=== PATIENT | female | born 1945 | race Caucasian/White ===

== ENCOUNTER 2022-10-12 10:56 | Outpatient (RCR) | payer MEDICARE, OTHER, SELFPAY | END 2022-12-23 16:18 | disposition home or self-care (01) | LOC: PT 10:56 | PROVIDERS: PCP Family Medicine; Visit Provider Anesthesiology Pain Medicine | DX: S46.011D Strain of muscle(s) and tendon(s) of the rotator cuff of right shoulder, subsequent encounter (principal) | CPT/HCPCS: 97010; 97035; 97110; 97140; G0283 ==

== ENCOUNTER 2022-10-26 13:08 | Outpatient (OUT) | payer MEDICARE, OTHER, SELFPAY ==
--- NOTE | 2022-10-26 13:25 | PM.CN ---
Consult Note: HPI Data of Consult Patient: known to practice within the last 3 years Consult date: 10/26/22 Requesting Physician: LINDSAY SPICER NP Primary Care Provider: Tierra Newell MD Consult Narrative Narrative: Patient is here for f/u of neck and right shoulder . Shoulder pain is with ROM activities. She is doing PT with good results for her neck pain. No new sensorimotor or bowel or bladder issues. No adverse medication SE. Medication regimen assists patient in ability to complete ADLs. She had right shoulder injection in office 08/03 with good results. She would like to repeat the injection. cc:: CC: LINDSAY SPICER NP Review of Systems ROS Status of ROS 10 or more systems reviewed and unremarkable except as noted in history and below Musculoskeletal Reports: neck pain and joint pain Exam Constitutional Documenting provider has reviewed patient's vital signs: yes Common normals: no apparent distress, oriented x3, no limitations, healthy appearing, alert and well nourished General appearance: cooperative, comfortable and well developed Orientation/consciousness: Yes awake, Yes oriented to person, Yes oriented to place and Yes oriented to time HENMT Common normals: normocephalic, nasal mucous membranes and turbinates normal and moist oral mucous membranes Neck & C-Spine Common normals: full ROM, supple and no meningeal signs General: normal visual inspection and trachea midline Cervical spine: cervical ROM normal, pain with cervical ROM, cervical spine tenderness and paracervical muscle tenderness Other: negative jenae Respiratory Common normals: normal respiratory effort, no retractions and no use of accessory muscles Effort & inspection: able to speak in complete sentences and symmetric chest movement Extremity Common normals: normal to inspection and normal capillary refill Right upper extremity: shoulder joint (positive apley. Pain with arm raised behind head or back. no arm drift. ) Other: crepitus in shoulder with movement. Muscle strength 4/5 bilat UE with intact sensation Assessment and Plan Assessment and Plan (1) Cervical spondylosis: (2) Shoulder arthritis: Plan schedule right shoulder injection in office f/u 3 months
== END 2022-10-26 13:09 ==
PROVIDERS: PCP Family Medicine; Visit Provider Nurse Practitioner
DX: M47.812 Spondylosis without myelopathy or radiculopathy, cervical region (principal); M19.019 Primary osteoarthritis, unspecified shoulder
CPT/HCPCS: G0463

== ENCOUNTER 2022-11-02 12:23 | Outpatient (OUT) | payer MEDICARE, OTHER, SELFPAY ==
--- NOTE | 2022-11-02 16:12 | CONS_ITS ---
PROCEDURE DATE: ??11/02/2022 PROCEDURE:? Right glenohumeral joint injection. PREOPERATIVE DIAGNOSIS:? Pain secondary to right shoulder joint pain, rotator cuff tear. POSTOPERATIVE DIAGNOSIS: Pain secondary to right shoulder joint pain, rotator cuff tear. SOLUTION USED FOR INJECTION:? 2 mL of 2% lidocaine, 2 mL of 0.25% Marcaine and 40 mg of Kenalog, total of 5 mL and 2 mL used for the injection. IMMEDIATE COMPLICATIONS:? None. PROCEDURE:? After informed consent was obtained from the patient, placed in the sitting position.? The skin overlying the area was prepped with alcohol.? A 25 gauge 1 ? inch needle inserted into the area of the right glenohumeral joint.? After encountering the same, we injected 2 mL of solution.? No indication of intravascular or intraneural needle tip placement or injection.? Tolerated the procedure well without complications.? She reports a dramatic reduction of pain symptoms post procedurally. MIGNON
== END 2022-11-02 12:24 | disposition home or self-care (01) ==
LOC: PM 12:23
PROVIDERS: PCP Family Medicine; Visit Provider Anesthesiology Pain Medicine
DX: M25.511 Pain in right shoulder (principal); M75.101 Unspecified rotator cuff tear or rupture of right shoulder, not specified as traumatic
CPT/HCPCS: 20610

== ENCOUNTER 2022-11-28 12:51 | Outpatient (OUT) | payer MEDICARE, OTHER, SELFPAY ==
--- NOTE | 2022-11-28 | CONS_ITS ---
PROCEDURE DATE: ??11/28/2022 TO:? Tierra Newell M.D. PROCEDURE:? Right suprascapular nerve injection. PREOPERATIVE DIAGNOSIS:? Right shoulder pain secondary to supraspinatus tear and strain injury with impingement syndrome.? POSTOPERATIVE DIAGNOSIS:? Right shoulder pain secondary to supraspinatus tear and strain injury with impingement syndrome.? SOLUTION USED FOR INJECTION:? 2 mL of 2% lidocaine, 2 mL of 0.25% Marcaine and 10 mg of Kenalog, a total of 5 mL, and 1 mL used for the injection. IMMEDIATE COMPLICATIONS:? None. PROCEDURE:? After informed consent was obtained from the patient, placed in the sitting position.? Skin overlying the area was prepped with alcohol.? A 25 gauge, 1 ? inch needle was inserted over the area right suprascapular nerve.? Needle tip was advanced until it was encountered, at which point we injected 1 mL of solution.? No indication of intravascular or intraneural needle tip placement or post-procedural pneumothorax.? This patient did report a marked reduction of pain symptoms, with improvement in range of motion of her right shoulder.? She would be an appropriate candidate for consideration for radiofrequency ablation of her right suprascapular nerve should her pain recur at any time in the near future.? MIGNON
== END 2022-11-28 12:52 | disposition home or self-care (01) ==
LOC: PM 12:52
PROVIDERS: PCP Family Medicine; Visit Provider Anesthesiology Pain Medicine
DX: M25.511 Pain in right shoulder (principal); M75.101 Unspecified rotator cuff tear or rupture of right shoulder, not specified as traumatic; S46.811A Strain of other muscles, fascia and tendons at shoulder and upper arm level, right arm, initial encounter; M75.41 Impingement syndrome of right shoulder
CPT/HCPCS: 20610

== ENCOUNTER 2022-12-25 14:17 | Outpatient (OUT) | payer MEDICARE, OTHER, SELFPAY ==
--- NOTE | 2022-12-25 15:40 | PM.CN ---
Consult Note: HPI Data of Consult Patient: known to practice within the last 3 years Consult date: 12/25/22 Requesting Physician: Drake Delatorre MD Primary Care Provider: Tierra Newell MD Consult Narrative Reason for consult: Right shoulder pain Narrative: this is a pleasant 77-year-old female who presents for assessment. She has persistence of pain throughout her right shoulder. She is tried various shoulder injections and nerve blocks in the past, with limited relief. She continues to engage in provider directed home exercises, which she has attended for over six weeks. She utilizes Percocet, which provides some relief. She otherwise denies adverse medication side effects or loss of bowel or bladder control. cc:: CC: Drake Delatorre MD Review of Systems ROS Status of ROS 10 or more systems reviewed and unremarkable except as noted in history and below Meds Home Medications and Allergies Home Medications Medication Instructions Recorded Confirmed Type OCUVITE DAILY 10/26/22 History albuterol sulfate 90 mcg/actuation inhalation Q6H 10/26/22 History aerosol inhaler amlodipine 10 mg tablet 10 mg DAILY 10/26/22 History baclofen 10 mg tablet 10 mg TID 10/26/22 History buspirone 10 mg tablet 10 mg BID 10/26/22 History cholecalciferol (vitamin D3) 50 50 mcg PO DAILY 10/26/22 10/26/22 History mcg (2,000 unit) capsule gabapentin 600 mg tablet 600 mg TID 10/26/22 History meloxicam 15 mg tablet 15 mg DAILY 10/26/22 History multivitamin 1 tab PO DAILY 10/26/22 10/26/22 History nortriptyline 25 mg capsule 25 mg .QHS 10/26/22 History omeprazole 40 mg capsule,delayed 40 mg DAILY 10/26/22 History release oxycodone-acetaminophen 5 mg-325 1 tab BID 10/26/22 History mg tablet (Endocet) tolterodine 2 mg tablet 4 mg PO DAILY 10/26/22 10/26/22 History Allergies Allergy/AdvReac Type Severity Reaction Status Date / Time No Known Drug Allergies Allergy Verified 10/26/22 13:49 Exam Constitutional Common normals: no apparent distress, oriented x3 and healthy appearing Respiratory Common normals: normal respiratory effort Effort & inspection: able to speak in complete sentences Extremity Common normals: normal to inspection Other: tenderness to palpation throughout the right shoulder. Pain is elicited with abduction and external rotation of the right shoulder. Mild crepitus appreciated. 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 She has persistence of pain throughout her right neck and shoulder region. She has failed to respond to conservative measures, as noted above. She has undergone various shoulder treatments, without significant relief. At this point in time, she would be an appropriate candidate for right suprascapular and axillary nerve blocks for diagnostic purposes. Depending on her response, she may benefit from radio frequency ablation of these nerves. She is in agreement with this plan. Medications were reviewed. I agreed to refill her Percocet. She will follow-up after the procedure is completed.
== END 2022-12-25 14:18 | disposition home or self-care (01) ==
LOC: PM 14:17
PROVIDERS: PCP Family Medicine; Visit Provider Anesthesiology
DX: M47.812 Spondylosis without myelopathy or radiculopathy, cervical region (principal); M19.019 Primary osteoarthritis, unspecified shoulder
CPT/HCPCS: G0463

== ENCOUNTER 2023-01-08 07:32 | Day surgery (SDC) | payer MEDICARE, OTHER, SELFPAY ==
[2023-01-08 08:04] VITALS: BP 141/93; PULSE 87; RESP 20; TEMP 36.3; O2SAT 97
[2023-01-08] MEDS: BUPIVACAINE HCL 0.25% PF 25 MG/10 ML VIAL INJ (09:10)
[2023-01-08 09:11] VITALS: BP 165/77; PULSE 77; RESP 20; O2SAT 97
[2023-01-08 09:12] VITALS: BP 154/72; PULSE 78; RESP 20; O2SAT 97
[2023-01-08] MEDS: TRIAMCINOLONE ACETONIDE 40 MG/ML VIAL INJ (09:12)
[2023-01-08] MEDS: LIDOCAINE HCL 2% PF 100 MG/5 ML VIAL INJ (09:12)
--- NOTE | 2023-01-08 09:14 | P.ON_ITS ---
Date of procedure: 01/08/23 Pre-op diagnosis: Shoulder osteoarthritis, right Post-op diagnosis: same as pre-op Procedure: Procedure: Right suprascapular and axillary nerve block Medications: Bupivacaine 0.25% 3cc, kenalog 40mg The patient was seen and examined in the preoperative holding area. Informed consent was obtained and placed on the chart.? The patient was brought to the medical procedure unit and placed in the prone position. A timeout was completed verifying correct patient, procedure site, positioning, plan, and special equipment.? Using aseptic technique, under direct fluoroscopic visualization, a 25-gauge 3-1/2 inch spinal needle was advanced to the superior portion of the right posterior osseous rim of the glenoid fossa, lateral and superior to the spinal glenoid notch.? 0.5 cc of the above solution was injected.? The needle was then redirected 3 mm infe riorly and another 0.5 cc of the above medication was injected.? This needle was then removed.? Using aseptic technique, under direct fluoroscopic visualization, another 25-gauge 3-1/2 inch spinal needle was advanced toward the most inferior and lateral border of the greater tubercle.? 0.5 cc of the above medication was administered.? The needle was then redirected 3 mm inferiorly.? 0.5 cc was administered in this region.? This needle was removed.? The same procedure, with the same steps, was then repeated on the opposite side.? ? The patient was taken to the postprocedural recovery area and monitored for an appropriate length of time before being found suitable for discharge in the accompaniment of a responsible adult. Anesthesia: Local Surgeon: Drake Delatorre Pathology: none sent Condition: stable Disposition: no change
== END 2023-01-08 09:19 | disposition home or self-care (01) ==
LOC: SURGOUT 07:33
PROVIDERS: PCP Family Medicine; Visit Provider Anesthesiology
DX: M19.011 Primary osteoarthritis, right shoulder (principal)
CPT/HCPCS: 64417; 64418; 77002

== ENCOUNTER 2023-01-24 12:34 | Outpatient (OUT) | payer MEDICARE, OTHER, SELFPAY ==
--- NOTE | 2023-01-24 12:46 | P.CN_ITS ---
Consult Note: HPI Data of Consult Patient: known to practice within the last 3 years Requesting Physician: Sheri Lozano NP Primary Care Provider: Tierra Newell MD Consult Narrative Reason for consult: procedure f/u Narrative: Jing Lewis a pleasant 77 year old female presents for evaluation of chronic neck pain and right shoulder pain. Recently underwent a right suprascapular and axillary nerve block with mild relief for 1-2 hours after procedure. Today rating pain 3-4/10. cc:: CC: Sheri Lozano NP Review of Systems ROS Status of ROS 10 or more systems reviewed and unremarkable except as noted in history and below Musculoskeletal Reports: neck pain, extremity pain and joint pain Meds Home Medications and Allergies Home Medications Medication Instructions Recorded Confirmed Type OCUVITE DAILY 10/26/22 History albuterol sulfate 90 mcg/actuation inhalation Q6H 10/26/22 History aerosol inhaler amlodipine 10 mg tablet 10 mg DAILY 10/26/22 History baclofen 10 mg tablet 10 mg TID 10/26/22 History buspirone 10 mg tablet 10 mg BID 10/26/22 History cholecalciferol (vitamin D3) 50 50 mcg PO DAILY 10/26/22 01/08/23 History mcg (2,000 unit) capsule gabapentin 600 mg tablet 600 mg TID 10/26/22 History meloxicam 15 mg tablet 15 mg DAILY 10/26/22 History multivitamin 1 tab PO DAILY 10/26/22 01/08/23 History nortriptyline 25 mg capsule 25 mg .QHS 10/26/22 History omeprazole 40 mg capsule,delayed 40 mg DAILY 10/26/22 History release oxycodone-acetaminophen 5 mg-325 1 tab BID 10/26/22 History mg tablet (Endocet) Allergies Allergy/AdvReac Type Severity Reaction Status Date / Time No Known Drug Allergies Allergy Verified 01/08/23 08:00 Exam Constitutional Documenting provider has reviewed patient's vital signs: yes Common normals: no apparent distress, oriented x3, healthy appearing, alert and well nourished General appearance: cooperative HENMT Common normals: normocephalic, hearing grossly normal bilaterally and moist oral mucous membranes Head and scalp: normocephalic Eye Common normals: PERRL Pupil: PERRL Neck & C-Spine General: normal visual inspection Cervical spine: cervical ROM abnormal, pain with cervical ROM and trapezius muscle tenderness Other: predominately central neck pain without radiculopathy, worse on right side Chest Common normals: inspection of chest normal Respiratory Common normals: normal respiratory effort, no retractions and no use of accessory muscles Extremity Right upper extremity: shoulder joint (pain and limited ROM) Neuro Common normals: oriented x3, CN's II-XII intact bilaterally, moves all extremities, no focal motor deficits, no sensory deficits noted and deep tendon reflexes 2+ bilaterally Sensorium/orientation: alert Motor exam: strength 5/5 throughout and no movement abnormalities noted Psych Common normals: mental status grossly normal, thought process normal, cooperative, affect normal, speech normal and activity/motor behavior normal Speech: normal speech Thought process: normal thought process Results Additional Findings Additional findings: I have checked an [place]AR[place] report on this patient today and there are no aberrancies noted in the prescribing history.?? A drug screen was completed and reviewed within the last year, and if there has not been a drug screen completed we ordered one today to monitor higher risk, state monitored pain medication use. As part of providing excellent, safe, comprehensive care, the following was completed at our patient's visit: 1. A medication reconciliation and review to ensure accurate knowledge of current/active medications, including asking our patients to inform us about any [id number] medications or herbal remedies/nutritional supplements/alternative remedies. 2. A review to specifically ensure our patients have had annual screening for: elevated body mass index (BMI), tobacco use, screening for depression, and screening for unhealthy alcohol use. When screening is concerning, patients are provided with education and the specific recommendation to discuss the concerning health issue and treatment options with their primary care provider. Assessment and Plan Assessment and Plan (1) Shoulder arthritis: (2) Cervical spondylosis: (3) Chronic prescription opiate use: Assessment and Plan: update UDS today, patient was unable to urinate we will obtain mouth swab for drug screen I feel these medications are improving the patient's quality of life and allow them to tolerate activities of daily living as well as participate in recreational activity.? The patient does not report intolerable side effects. The patient is NOT opioid naive and non-pharmacologic and non-opioid treatment has failed to significantly relieve the patient's pain and improve functionality. The patient has a diagnosis that is related to a somatic or visceral pain etiology. ? ?? I reviewed with the patient the potential risks and side effects with the use of? opioid medications including but not limited to respiratory depression,? sedation, and even . I verified the patient has access to naloxone should? these effects occur. I advised the patient to avoid the use of any other? sedation substances including alcohol, THC, and benzodiazepines while? taking opioid medications due to the risk of compounding side effects and? detrimental outcomes. I reviewed the TRAINER, pain treatment agreement, urine? drug screen, and opioid start talking forms. The patient was advised to let? their family know they had Naloxone in case they would need to administer? the medication.? ?? A drug screen was completed within the last year, and no aberrancies were noted regarding their use of controlled substances. The patient understands they are subject to the terms and conditions of the pain contract that they have signed. ? ?? I have checked an OARRS report on this patient today and there are no aberrancies noted in the prescribing history.? Plan SENIOR SUSTAINABILITY ADVISOR reviewed and signed update drug screen today continue HEP refill and continue current medications patient benefitting from current regimen without side effects proceed with [facility] c5-6 c6-7 MBB x2 under fluoroscopy if provides >80% functional improvement and pain relief will proceed with thermal RFA. risks and benefits of the procedure discussed.
== END 2023-01-24 12:35 | disposition home or self-care (01) ==
PROVIDERS: PCP Family Medicine; Visit Provider Nurse Practitioner
DX: M47.812 Spondylosis without myelopathy or radiculopathy, cervical region (principal); M19.019 Primary osteoarthritis, unspecified shoulder; Z79.891 Long term (current) use of opiate analgesic
CPT/HCPCS: G0463

== ENCOUNTER 2023-02-05 08:29 | Day surgery (SDC) | payer MEDICARE, OTHER, SELFPAY ==
[2023-02-05 09:06] VITALS: BP 117/84; PULSE 81; RESP 14; TEMP 36.6; O2SAT 96
[2023-02-05] MEDS: BUPIVACAINE HCL 0.25% PF 25 MG/10 ML VIAL INJ (10:03)
[2023-02-05] MEDS: DEXAMETHASONE SODIUM PHOSPHATE 10 MG/ML VIAL INJ (10:04)
[2023-02-05] MEDS: LIDOCAINE HCL 2% PF 100 MG/5 ML VIAL INJ (10:04)
--- NOTE | 2023-02-05 10:08 | W.PM.PROCNOT ---
Date of procedure: 02/05/23 Pre-op diagnosis: Cervical spondylosis Post-op diagnosis: same as pre-op Procedure: Procedure: Right C5-6, C6-7 medial branch block Medications: Bupivacaine 0.25% 4cc The patient was seen and examined in the preoperative holding area.? The informed consent was obtained and placed on the chart.? The patient was brought to the medical procedure unit and placed in the prone position.? A timeout was completed verifying correct patient, procedure site, positioning, plan, and special equipment.? Using aseptic technique, the needle is placed at right C5. Under direct fluoroscopic visualization, a Quincke tip needle was advanced to the midpoint of the waist of the articular pillar at the respective medial branch segment. The above-mentioned injectate was placed in a 1 mL aliquot proceeded by negative aspiration.? The needle was removed.? The procedure was completed at right C6, 7. Insertion site was covered.? Patient was taken to the postprocedural recovery area and monitored for an appropriate length of time before found suitable for discharge in the accompaniment of a responsible adult. Anesthesia: Local Surgeon: Drake Delatorre Pathology: none sent Condition: stable Disposition: no change
[2023-02-05 14:17] VITALS: BP 146/98; BP 151/77; PULSE 72; PULSE 76; RESP 18; O2SAT 96; O2SAT 97
== END 2023-02-05 10:09 | disposition home or self-care (01) ==
PROVIDERS: PCP Family Medicine; Visit Provider Anesthesiology
DX: M47.812 Spondylosis without myelopathy or radiculopathy, cervical region (principal)
CPT/HCPCS: 64490; 64491; J1100

== ENCOUNTER 2023-02-21 13:06 | Outpatient (OUT) | payer MEDICARE, OTHER, SELFPAY ==
--- NOTE | 2023-02-21 13:42 | PM.CN ---
Consult Note: HPI Data of Consult Patient: known to practice within the last 3 years Requesting Physician: Sheri Lozano NP Primary Care Provider: Tierra Newell MD Consult Narrative Reason for consult: f/u Narrative: Jing Lewis a pleasant 77 year old female presents for evaluation of chronic neck pain and right shoulder pain. Recently underwent a right c5-6 c6-7 MBB #1 with >80% pain relief and functional improvement. Neck pain unaffected by MBB. Patient would like to further discuss shoulder pain, she had an MRI completed which does not show a surgical need but she may benefit from talking with an operations staff specialist security. Pain today 6-11/20 in right shoulder and neck. cc:: CC: Sheri Lozano NP Review of Systems ROS Status of ROS 10 or more systems reviewed and unremarkable except as noted in history and below Musculoskeletal Reports: neck pain and joint pain (right shoulder) Meds Home Medications and Allergies Home Medications Medication Instructions Recorded Confirmed Type OCUVITE DAILY 10/26/22 History albuterol sulfate 90 mcg/actuation inhalation Q6H 10/26/22 History aerosol inhaler amlodipine 10 mg tablet 10 mg DAILY 10/26/22 History baclofen 10 mg tablet 10 mg TID 10/26/22 History buspirone 10 mg tablet 10 mg BID 10/26/22 History cholecalciferol (vitamin D3) 50 50 mcg PO DAILY 10/26/22 02/05/23 History mcg (2,000 unit) capsule gabapentin 600 mg tablet 600 mg TID 10/26/22 History multivitamin 1 tab PO DAILY 10/26/22 02/05/23 History nortriptyline 25 mg capsule 25 mg .QHS 10/26/22 History omeprazole 40 mg capsule,delayed 40 mg DAILY 10/26/22 History release oxycodone-acetaminophen 5 mg-325 1 tab BID 10/26/22 History mg tablet (Endocet) baclofen 10 mg tablet 10 mg PO TID #270 tabs 01/24/23 02/05/23 Rx gabapentin 600 mg tablet 600 mg PO TID #270 tabs 01/24/23 02/05/23 Rx meloxicam 15 mg tablet 15 mg PO DAILY #90 tabs 01/24/23 02/05/23 Rx nortriptyline 25 mg capsule 25 mg PO DAILY #90 caps 01/24/23 02/05/23 Rx naproxen sodium 220 mg capsule 440 mg PO BID PRN pain 02/05/23 02/05/23 History (Aleve) Allergies Allergy/AdvReac Type Severity Reaction Status Date / Time No Known Drug Allergies Allergy Verified 02/05/23 09:01 Exam Constitutional Documenting provider has reviewed patient's vital signs: yes Common normals: no apparent distress, oriented x3, healthy appearing, alert and well nourished General appearance: cooperative HENMT Common normals: normocephalic, hearing grossly normal bilaterally and moist oral mucous membranes Head and scalp: normocephalic Eye Common normals: PERRL Pupil: PERRL Neck & C-Spine Common normals: full ROM General: normal visual inspection Cervical spine: cervical ROM abnormal, pain with cervical ROM and trapezius muscle tenderness Other: predominately central neck pain without radiculopathy, worse on right side Chest Common normals: inspection of chest normal Respiratory Common normals: normal respiratory effort, no retractions and no use of accessory muscles Extremity Right upper extremity: shoulder joint (pain and limited ROM, tender to touch) Neuro Common normals: oriented x3, CN's II-XII intact bilaterally, moves all extremities, no focal motor deficits, no sensory deficits noted and deep tendon reflexes 2+ bilaterally Sensorium/orientation: alert Motor exam: strength 5/5 throughout and no movement abnormalities noted Psych Common normals: mental status grossly normal, thought process normal, cooperative, affect normal, speech normal and activity/motor behavior normal Speech: normal speech Thought process: normal thought process Results Additional Findings Additional findings: I have checked an OARRS report on this patient today and there are no aberrancies noted in the prescribing history.?? A drug screen was completed and reviewed within the last year, and if there has not been a drug screen completed we ordered one today to monitor higher risk, state monitored pain medication use. As part of providing excellent, safe, comprehensive care, the following was completed at our patient's visit: 1. A medication reconciliation and review to ensure accurate knowledge of current/active medications, including asking our patients to inform us about any [id number] medications or herbal remedies/nutritional supplements/alternative remedies. 2. A review to specifically ensure our patients have had annual screening for: elevated body mass index (BMI), tobacco use, screening for depression, and screening for unhealthy alcohol use. When screening is concerning, patients are provided with education and the specific recommendation to discuss the concerning health issue and treatment options with their primary care provider. Assessment and Plan Assessment and Plan (1) Shoulder arthritis: (2) Cervical spondylosis: (3) Chronic prescription opiate use: Assessment and Plan: I feel these medications are improving the patient's quality of life and allow them to tolerate activities of daily living as well as participate in recreational activity.? The patient does not report intolerable side effects. The patient is NOT opioid naive and non-pharmacologic and non-opioid treatment has failed to significantly relieve the patient's pain and improve functionality. The patient has a diagnosis that is related to a somatic or visceral pain etiology. ? ?? I reviewed with the patient the potential risks and side effects with the use of? opioid medications including but not limited to respiratory depression,? sedation, and even . I verified the patient has access to naloxone should? these effects occur. I advised the patient to avoid the use of any other? sedation substances including alcohol, THC, and benzodiazepines while? taking opioid medications due to the risk of compounding side effects and? detrimental outcomes. I reviewed the BENCH WORKER, pain treatment agreement, urine? drug screen, and opioid start talking forms. The patient was advised to let? their family know they had Naloxone in case they would need to administer? the medication.? ?? A drug screen was completed within the last year, and no aberrancies were noted regarding their use of controlled substances. The patient understands they are subject to the terms and conditions of the pain contract that they have signed. ? ?? I have checked an OARRS report on this patient today and there are no aberrancies noted in the prescribing history.? Plan continue HEP refill and continue current medications, to decrease meloxicam to 7.5 proceed with rig c5-6 c6-7 MBB #2 under fluoroscopy if provides >80% functional improvement and pain relief will proceed with thermal RFA. risks and benefits of the procedure discussed. orthopedic consult for right shoulder declining PT for right shoulder pain f/u after procedure
== END 2023-02-21 13:07 | disposition home or self-care (01) ==
PROVIDERS: PCP Family Medicine; Visit Provider Nurse Practitioner
DX: M47.812 Spondylosis without myelopathy or radiculopathy, cervical region (principal); Z79.899 Other long term (current) drug therapy; M19.011 Primary osteoarthritis, right shoulder
CPT/HCPCS: G0463

== ENCOUNTER 2023-03-05 08:10 | Day surgery (SDC) | payer MEDICARE, OTHER, SELFPAY ==
[2023-03-05 08:30] VITALS: BP 149/79; PULSE 84; RESP 16; TEMP 36.6; O2SAT 98
[2023-03-05 09:18] VITALS: BP 145/79; PULSE 77; RESP 16; O2SAT 97
[2023-03-05] MEDS: BUPIVACAINE HCL 0.25% PF 25 MG/10 ML VIAL 5 ML INJ (09:22)
[2023-03-05] MEDS: LIDOCAINE HCL 2% PF 100 MG/5 ML VIAL INJ (09:22)
[2023-03-05] MEDS: DEXAMETHASONE SOD PHOS 10 MG/ML VIAL INJ (09:22)
--- NOTE | 2023-03-05 09:23 | W.PM.PROCNOT ---
Date of procedure: 03/05/23 Pre-op diagnosis: Cervical spondylosis Post-op diagnosis: same as pre-op Procedure: Procedure: Right C5-6, C6-7 medial branch block Medications: Bupivacaine 0.25% 4cc The patient was seen and examined in the preoperative holding area.? The informed consent was obtained and placed on the chart.? The patient was brought to the medical procedure unit and placed in the prone position.? A timeout was completed verifying correct patient, procedure site, positioning, plan, and special equipment.? Using aseptic technique, the needle is placed at right C5. Under direct fluoroscopic visualization, a Quincke tip needle was advanced to the midpoint of the waist of the articular pillar at the respective medial branch segment. The above-mentioned injectate was placed in a 1 mL aliquot proceeded by negative aspiration.? The needle was removed.? The procedure was completed at right C6, 7. Insertion site was covered.? Patient was taken to the postprocedural recovery area and monitored for an appropriate length of time before found suitable for discharge in the accompaniment of a responsible adult. Anesthesia: Local Surgeon: Drake Delatorre Pathology: none sent Condition: stable Disposition: no change
[2023-03-05 09:25] VITALS: BP 145/75; PULSE 76; RESP 18; O2SAT 98
== END 2023-03-05 09:27 | disposition home or self-care (01) ==
PROVIDERS: PCP Family Medicine; Visit Provider Anesthesiology
DX: M47.812 Spondylosis without myelopathy or radiculopathy, cervical region (principal)
CPT/HCPCS: 64490; 64491; J1100

== ENCOUNTER 2023-03-15 12:41 | Outpatient (OUT) | payer MEDICARE, OTHER, SELFPAY ==
--- NOTE | 2023-03-15 12:50 | P.CN_ITS ---
Consult Note: HPI Data of Consult Patient: known to practice within the last 3 years Requesting Physician: Sheri Lozano NP Primary Care Provider: Tierra Newell MD Consult Narrative Reason for consult: f/u Narrative: Jing Lewis a pleasant 78 year old female presents for evaluation and management of chronic neck pain. Patient recently underwent Right C5-6, C6-7 medial branch block with 80% pain relief and functional improvement immediately following and hours after the procedure. Today rating pain 6/10 pain in right arm, shoulder, neck. Patient has not followed up with orthopedics since last visit. cc:: CC: Sheri Lozano NP Review of Systems ROS Status of ROS 10 or more systems reviewed and unremarkable except as noted in history and below Musculoskeletal Reports: neck pain and joint pain (right shoulder) PFSH PFSH Medical History HTN (hypertension) ?I10 - Essential (primary) hypertension (ICD-10) Surgical History History of back surgery ?Z98.890 - Other specified postprocedural states (ICD-10) History of hysterectomy ?Z90.710 - Acquired absence of both cervix and uterus (ICD-10) History of lumpectomy of left breast ?Z98.890 - Other specified postprocedural states (ICD-10) Meds Home Medications and Allergies Home Medications Medication Instructions Recorded Confirmed Type OCUVITE DAILY 10/26/22 History albuterol sulfate 90 mcg/actuation inhalation Q6H 10/26/22 History aerosol inhaler amlodipine 10 mg tablet 10 mg DAILY 10/26/22 History baclofen 10 mg tablet 10 mg TID 10/26/22 History buspirone 10 mg tablet 10 mg BID 10/26/22 History cholecalciferol (vitamin D3) 50 50 mcg PO DAILY 10/26/22 03/05/23 History mcg (2,000 unit) capsule gabapentin 600 mg tablet 600 mg TID 10/26/22 History multivitamin 1 tab PO DAILY 10/26/22 03/05/23 History nortriptyline 25 mg capsule 25 mg .QHS 10/26/22 History omeprazole 40 mg capsule,delayed 40 mg DAILY 10/26/22 History release oxycodone-acetaminophen 5 mg-325 1 tab BID 10/26/22 History mg tablet (Endocet) baclofen 10 mg tablet 10 mg PO TID #270 tabs 01/24/23 02/05/23 Rx gabapentin 600 mg tablet 600 mg PO TID #270 tabs 01/24/23 03/05/23 Rx meloxicam 15 mg tablet 15 mg PO DAILY #90 tabs 01/24/23 03/05/23 Rx nortriptyline 25 mg capsule 25 mg PO DAILY #90 caps 01/24/23 02/05/23 Rx naproxen sodium 220 mg capsule 440 mg PO BID PRN pain 02/05/23 03/05/23 History (Aleve) oxycodone-acetaminophen 5 mg-325 1 tab PO BID PRN pain #60 tabs 02/21/23 Rx mg tablet (Percocet) Allergies Allergy/AdvReac Type Severity Reaction Status Date / Time No Known Drug Allergies Allergy Verified 03/05/23 08:37 Exam Constitutional Documenting provider has reviewed patient's vital signs: yes Common normals: no apparent distress, oriented x3, healthy appearing, alert and well nourished General appearance: cooperative HENRI Common normals: normocephalic, hearing grossly normal bilaterally and moist oral mucous membranes Head and scalp: normocephalic Eye Common normals: PERRL Pupil: PERRL Neck & C-Spine Common normals: full ROM General: normal visual inspection Cervical spine: cervical ROM abnormal, pain with cervical ROM and trapezius muscle tenderness Other: predominately central neck pain without radiculopathy, worse on right side Chest Common normals: inspection of chest normal Respiratory Common normals: normal respiratory effort, no retractions and no use of accessory muscles Extremity Right upper extremity: shoulder joint (pain and limited ROM, tender to touch) Neuro Common normals: oriented x3, CN's II-XII intact bilaterally, moves all ex tremities, no focal motor deficits, no sensory deficits noted and deep tendon reflexes 2+ bilaterally Sensorium/orientation: alert Motor exam: strength 5/5 throughout and no movement abnormalities noted Psych Common normals: mental status grossly normal, thought process normal, cooperative, affect normal, speech normal and activity/motor behavior normal Speech: normal speech Thought process: normal thought process Results Additional Findings Additional findings: I have checked an [place] report on this patient today and there are no aberrancies noted in the prescribing history.?? A drug screen was completed and reviewed within the last year, and if there has not been a drug screen completed we ordered one today to monitor higher risk, state monitored pain medication use. As part of providing excellent, safe, comprehensive care, the following was completed at our patient's visit: 1. A medication reconciliation and review to ensure accurate knowledge of cu rrent/active medications, including asking our patients to inform us about any [id number] medications or herbal remedies/nutritional supplements/alternative remedies. 2. A review to specifically ensure our patients have had annual screening for: elevated body mass index (BMI), tobacco use, screening for depression, and screening for unhealthy alcohol use. When screening is concerning, patients are provided with education and the specific recommendation to discuss the concerning health issue and treatment options with their primary care provider. Assessment and Plan Assessment and Plan (1) Shoulder arthritis: (2) Cervical spondylosis: (3) Chronic prescription opiate use: Assessment and Plan: I feel these medications are improving the patient's quality of life and allow them to tolerate activities of daily living as well as participate in recreational activity.? The patient does not report intolerable side effects. The patient is NOT opioid naive and non-pharmacologic and non-opioid treatment has failed to significantly relieve the patient's pain and improve functionality. The patient has a diagnosis that is related to a somatic or visceral pain etiology. ? ?? I reviewed with the patient the potential risks and side effects with the use of? opioid medications including but not limited to respiratory depression,? sedation, and even . I verified the patient has access to naloxone should? these effects occur. I advised the patient to avoid the use of any other? sedation substances including alcohol, THC, and benzodiazepines while? taking opioid medications due to the risk of compounding side effects and? detrimental outcomes. I reviewed the [employer], pain treatment agreement, urine? drug screen, and opioid start talking forms. The patient was advised to let? their family know they had Naloxone in case they would need to administer? the medication.? ?? A drug screen was completed within the last year, and no aberrancies were noted regarding their use of controlled substances. The patient understands they are subject to the terms and conditions of the pain contract that they have signed. ? ?? I have checked an [place]ARRS report on this patient today and there are no aberrancies noted in the prescribing history.? Plan continue HEP refill and continue current medications proceed with right c5-6 c6-7 thermal RFA under fluoroscopy risks and benefits of the procedure discussed. 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 orthopedic consult for right shoulder previously placed declining PT for right shoulder pain f/u 1 month after procedure
== END 2023-03-15 12:42 | disposition home or self-care (01) ==
LOC: PM 12:43
PROVIDERS: PCP Family Medicine; Visit Provider Nurse Practitioner
DX: M47.812 Spondylosis without myelopathy or radiculopathy, cervical region (principal); Z79.899 Other long term (current) drug therapy; M19.019 Primary osteoarthritis, unspecified shoulder
CPT/HCPCS: G0463

== ENCOUNTER 2023-03-21 10:09 | Observation (INO) | payer MEDICARE, OTHER, SELFPAY ==
[2023-03-21 10:10] VITALS: BP 113/70; PULSE 114; RESP 18; TEMP 36.8; O2SAT 92; BMI 44.3
[2023-03-21 10:23] VITALS: O2SAT 94
--- NOTE | 2023-03-21 10:24 | ECG_ITS ---
The [facility] Test Date: 2023-03-21 Pat Name: AARON JJ Department: Room: - Gender: Female Quality Rn: : 1945 Requested By: JEREMIAH REED Order Number: [id number] Reading MD: KAISER SCHERER Measurements Intervals Drift Rate: 112 P: 40 ME: 154 QRS: 20 QRSD: 66 T: 51 QT: 308 QTc: 374 Interpretive Statements 1120 Sinus tachycardia [address] elevation 8102 Low QRS voltage in chest leads 9140 abnormal rhythm ECG No previous ECG available for comparison Electronically Signed On 03-23-2023 6:19:15 EST by KAISER SCHERER
--- NOTE | 2023-03-21 10:24 | CT_ITS ---
The [address] [address] Patient Name: AARON JJ MRN: [id number] date: 1945 Sex: F Assigned Patient Location: ER Current Patient Location: ER Accession/Order Number: [id number] Exam Date: 03/21/2023 11:04 Report Date: 03/21/2023 11:23 At the request of: CHANI HWANG Procedure: CT head/brain wo con EXAM: CT head/brain wo con HISTORY: weak, fall COMPARISON: None. TECHNIQUE: Contiguous transaxial images were obtained from skull base to vertex without administration of intravenous contrast. Dose reduction: mA and/or kV are were adjusted by automated exposure control software based upon patients height and weight. FINDINGS: There is no focal scalp soft tissue swelling or acute calvarial fracture. The visualized globes and orbits are grossly normal. There is paranasal sinus mucosal thickening without air-fluid levels. Bilateral mastoid air cells are clear. The ventricles and sulci are normal for age and symmetric bilaterally. 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 There is mild periventricular and deep subcortical white matter low-attenuation, consistent with small vessel ischemic disease. There is no intraparenchymal hemorrhage, extraaxial fluid collection, mass lesion, or acute large territory ischemia by noncontrast CT. CT/CT head/brain wo con IMPRESSION: 1. No acute intracranial hemorrhage or acute large territory ischemia by noncontrast CT 2. 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 If the patient has a focal neurologic deficit or there is clinical suspicion for acute cerebrovascular accident, brain MRI would be recommended for further evaluation. Electronically authenticated by: WILLY MCBRIDE Date: 03/21/2023 11:23
--- NOTE | 2023-03-21 10:24 | XR_ITS ---
The [address] [address] Patient Name: AARON JJ MRN: [id number] date: 1945 Sex: F Assigned Patient Location: ER Current Patient Location: ED.MAIN Accession/Order Number: [id number] Exam Date: 03/21/2023 11:04 Report Date: 03/21/2023 11:20 At the request of: CHANI HWANG Procedure: XR chest 1V EXAM: CHEST 1 VIEW HISTORY: weak TECHNIQUE: Chest, one view. COMPARISON: Chest radiograph 11/22/[address] 06/12/2022 FINDINGS: Lungs are hyperinflated with background of mild emphysema. There is bilateral lower lobe atelectasis. No acute consolidation, effusion, or pneumothorax. Borderline cardiomegaly. Pulmonary vasculature within normal limits. XR/XR chest 1V IMPRESSION: 1.. Chronic obstructive pulmonary disease with bibasilar atelectasis. No acute consolidation. Recommend followup imaging if symptoms worsen or persist. Electronically authenticated by: KACI WALSH Date: 03/21/2023 11:20
[2023-03-21 10:47] LABS: Basophils Absolute Auto 0.1 10^3/uL (0.0-0.1); Basophils Percent Auto 0.5 % (0.2-2.0); Eosinophils Percent Auto 0.1 % (0.9-7.0); Hematocrit 49.1 % (36.0-48.0); Hemoglobin 15.2 g/dL (12.0-16.0); Immature Granulocytes Abs Auto 0.04 10^3/uL (0.00-0.03); Immature Granulocytes Pct Auto 0.3 % (0.0-0.5); Lymphocytes Absolute Auto 0.4 10^3/uL (1.2-3.8); Lymphocytes Percent Auto 2.8 % (20.5-60.0); Mean Corpuscular Hemoglobin 29.9 pg (26.7-34.0); Mean Corpuscular Volume 96.7 fL (81.0-99.0); Monocytes Absolute Auto 0.9 10^3/uL (0.3-0.8); Monocytes Percent Auto 6.4 % (1.7-12.0); Neutrophils Absolute Auto 12.5 10^3/uL (1.4-6.5); Neutrophils Percent Auto 89.9 % (43.0-75.0); Platelet Count 245 10^3/uL (150-450); Red Blood Count 5.08 10^6/uL (4.20-5.40); Red Cell Distribution Width 14.6 % (11.0-15.0); White Blood Count 13.9 10^3/uL (4.0-11.0)
[2023-03-21 10:53] LABS: Anion Gap 12.5; BUN Creatinine Ratio 14.5; Calcium 9.4 mg/dL (8.5-10.1); Carbon Dioxide 24.4 mmol/L (21.0-32.0); Chloride 107 mmol/L (98-107); Estimated GFR (African America 40 (>=60); Estimated GFR (Non-African Ame 33 (>=60); Glucose 117 mg/dL (74-106); Potassium 3.9 mmol/L (3.5-5.1); Sodium 140 mmol/L (136-145)
[2023-03-21 11:11] LABS: Bilirubin Urine SMALL (NEGATIVE); Blood Urine NEGATIVE (NEGATIVE); Clarity Urine CLEAR (CLEAR); Color Urine DK. YELLOW (YELLOW); Glucose Urine UA NEGATIVE (NEGATIVE); Ketones Urine TRACE mg/dL (NEGATIVE); Leukocyte Esterase Urine NEGATIVE (NEGATIVE); Nitrite Urine NEGATIVE (NEGATIVE); Protein Urine TRACE mg/dL (NEG/TRACE); Specific Gravity Urine >=1.030 (1.005-1.025)
[2023-03-21 11:17] LABS: Bacteria Urine SMALL #/HPF (NONE SEEN); Mucus Urine TRACE (NONE SEEN); WBC Urine 0-2 #/HPF (NONE SEEN)
[2023-03-21 11:18] LABS: Cast Seen? SEEN #/LPF (NONE SEEN); Crystals Seen? None Seen #/HPF (None Seen); Hyaline Casts Urine FEW; Squamous Epithelial Cell Urine FEW #/LPF (NONE/RARE)
[2023-03-21 11:36] VITALS: BP 90/60; PULSE 106; RESP 20; O2SAT 93
[2023-03-21] MEDS: 0.9 % SODIUM CHLORIDE 1,000 ML 1000 ML IV (12:14)
[2023-03-21 12:15] VITALS: BP 117/86; PULSE 106; RESP 20; O2SAT 93
--- NOTE | 2023-03-21 12:47 | ED.GENADUL1 ---
HPI - General Adult General Chief complaint: Fall Stated complaint: GENERAL WEAKNESS Time Seen by Provider: 03/21/23 10:17 Source: patient and family Mode of arrival: ambulance Limitations: no limitations History of Present Illness HPI narrative: [age] female presents for generalized weakness. She couldn't walk today. She had gone to the floor without a fall early in the morning. Paramedics came out to her house and she refused transport. She stayed at home and then got herself to the toilet but then couldn't get up. Paramedics brought her in. She lives by herself but is accompanied by her daughter. She didn't injure herself in any fashion and doesn't have any pain, she just feels weak. No fever cough chest pain shortness of breath or abdominal pain. No nausea vomiting or diarrhea. Related Data Home Medications Medication Instructions Recorded Confirmed OCUVITE DAILY 10/26/22 albuterol sulfate 90 mcg/actuation inhalation Q6H 10/26/22 aerosol inhaler amlodipine 10 mg tablet 10 mg PO DAILY 10/26/22 03/21/23 baclofen 10 mg tablet 10 mg TID 10/26/22 buspirone 10 mg tablet 10 mg BID 10/26/22 cholecalciferol (vitamin D3) 50 50 mcg PO DAILY 10/26/22 03/21/23 mcg (2,000 unit) capsule gabapentin 600 mg tablet 600 mg PO TID 10/26/22 03/21/23 multivitamin 1 tab PO DAILY 10/26/22 03/21/23 nortriptyline 25 mg capsule 25 mg PO DAILY 10/26/22 03/21/23 omeprazole 40 mg capsule,delayed 40 mg PO DAILY 10/26/22 03/21/23 release oxycodone-acetaminophen 5 mg-325 1 tab PO BID PRN pain 10/26/22 03/21/23 mg tablet (Endocet) naproxen sodium 220 mg capsule 440 mg PO BID PRN pain 02/05/23 03/05/23 (Aleve) calcium 500 mg tablet mg 03/21/23 glucosamine HCl .ROUTE 03/21/23 melatonin PO 03/21/23 meloxicam 15 mg tablet 7.5 mg PO DAILY 03/21/23 03/21/23 solifenacin 10 mg tablet 10 mg PO DAILY 03/21/23 03/21/23 Previous Rx's Medication Instructions Recorded baclofen 10 mg tablet 10 mg PO TID #270 tabs 01/24/23 gabapentin 600 mg tablet 600 mg PO TID #270 tabs 01/24/23 nortriptyline 25 mg capsule 25 mg PO DAILY #90 caps 01/24/23 oxycodone-acetaminophen 5 mg-325 1 tab PO BID PRN pain #60 tabs 02/21/23 mg tablet (Percocet) Allergies Allergy/AdvReac Type Severity Reaction Status Date / Time No Known Drug Allergies Allergy Verified 03/21/23 10:15 Review of Systems ROS Narrative A ten point review of systems is negative except as noted above. PFSH PFSH Medical History HTN (hypertension) ?I10 - Essential (primary) hypertension (ICD-10) Surgical History History of back surgery ?Z98.890 - Other specified postprocedural states (ICD-10) History of hysterectomy ?Z90.710 - Acquired absence of both cervix and uterus (ICD-10) History of lumpectomy of left breast ?Z98.890 - Other specified postprocedural states (ICD-10) Exam Narrative Exam Narrative: Nurses note and vital signs reviewed and patient is not hypoxic. General: The patient appears in no apparent distress. Patient is resting comfortably on cart. Skin: Warm, dry, no pallor noted. There is no rash noted. Head: Normocephalic, atraumatic Eye: Normal conjunctiva, no drainage Ears, Nose, Mouth, and Throat: oral mucosa is slightly dry. Nares patent. Cardiovascular: Regular Rate and Rhythm Respiratory: Patient is in no distress, no accessory muscle use, lungs are clear to auscultation, no wheezing, rales or rhonchi Back: non-tender GI: soft, obese, and nontender Musculoskeletal: The patient has no evidence of calf tenderness, no pitting edema, symmetrical pulses noted bilaterally Neurological: A&O x4, normal speech; she is able to lift each leg off of the bed individually. Psychiatric: Cooperative Constitutional Vital Signs, click to edit/add: Last Vital Signs Temp 98.3 F 03/21/23 10:10 Pulse 106 H 03/21/23 12:15 Resp 20 03/21/23 12:15 BP 117/86 03/21/23 12:15 Pulse Ox 93 L 03/21/23 12:15 O2 Del Method Room Air 03/21/23 10:23 Course Vital Signs Vital signs: Vital Signs Temperature 98.3 F 03/21/23 10:10 Pulse Rate 114 H 03/21/23 10:10 Respiratory Rate 18 03/21/23 10:10 Blood Pressure 113/70 03/21/23 10:10 Pulse Oximetry 92 L 03/21/23 10:10 Oxygen Delivery Method Room Air 03/21/23 10:10 Temperature 98.3 F 03/21/23 10:10 Pulse Rate 106 H 03/21/23 12:15 Respiratory Rate 20 03/21/23 12:15 Blood Pressure 117/86 03/21/23 12:15 Pulse Oximetry 93 L 03/21/23 12:15 Oxygen Delivery Method Room Air 03/21/23 10:23 Medical Decision Making MDM Narrative Medical decision making narrative: the patient has generalized weakness without apparent cause. Creatinine is slightly elevated but we don't have anything to which we can compare it. She was given IV fluids. No evidence of urinary tract infection or pneumonia. WBC mildly elevated at thirteen thousand. troponin is pending at the time of this dictation. She was given IV fluids and is being admitted. Treatment diagnosis and disposition were discussed with the patient and her family. Differential Diagnosis Differential Diagnosis: urinary tract infection, pneumonia, medication side effect Lab Data Lab results reviewed: Yes I reviewed the patient's lab results Labs: Lab Results 03/21/23 03/21/23 Range/Units 10:35 10:51 WBC 13.9 H (4.0-11.0) 10^3/uL RBC 5.08 (4.20-5.40) 10^6/uL Hgb 15.2 (12.0-16.0) g/dL Hct 49.1 H (36.0-48.0) % MCV 96.7 (81.0-99.0) fL MCH 29.9 (26.7-34.0) pg MCHC 31.0 (29.9-35.2) g/dL RDW 14.6 (11.0-15.0) % Plt Count 245 (150-450) 10^3/uL MPV 11.0 (9.5-13.5) fL Neut % (Auto) 89.9 H (43.0-75.0) % Lymph % (Auto) 2.8 L (20.5-60.0) % [place] % (Auto) 6.4 (1.7-12.0) % Eos % (Auto) 0.1 L (0.9-7.0) % Baso % (Auto) 0.5 (0.2-2.0) % Neut # (Auto) 12.5 H (1.4-6.5) 10^3/uL Lymph # (Auto) 0.4 L (1.2-3.8) 10^3/uL [place] # (Auto) 0.9 H (0.3-0.8) 10^3/uL Eos # (Auto) 0.0 (0.0-0.7) 10^3/uL Baso # (Auto) 0.1 (0.0-0.1) 10^3/uL Abs Immat Gran (auto) 0.04 H (0.00-0.03) 10^3/uL Imm/Tot Granulo (auto) 0.3 (0.0-0.5) % Sodium 140 (136-145) mmol/L Potassium 3.9 (3.5-5.1) mmol/L Chloride 107 (98-107) mmol/L Carbon Dioxide 24.4 (21.0-32.0) mmol/L Anion Gap 12.5 BUN 22.0 H (7.0-18.0) mg/dL Creatinine 1.52 H (0.55-1.02) mg/dL Est GFR ( Amer) 40 L (>=60) Est GFR (Non-Af Amer) 33 L (>=60) BUN/Creatinine Ratio 14.5 Glucose 117 H (74-106) mg/dL Calcium 9.4 (8.5-10.1) mg/dL Urine Color Dk. yellow (YELLOW) Urine Clarity Clear (CLEAR) Urine pH 5.0 (5.0-9.0) Ur Specific [place] >=1.030 A (1.005-1.025) Urine Protein Trace (NEG/TRACE) mg/dL Urine Glucose (UA) Negative (NEGATIVE) mg/dL Urine Ketones Trace A (NEGATIVE) mg/dL Urine Occult Blood Negative (NEGATIVE) Urine Nitrite Negative (NEGATIVE) Urine Bilirubin Small A (NEGATIVE) Urine Urobilinogen 1.0 (0.2-1.0) EU/dL Ur Leukocyte Esterase Negative (NEGATIVE) Urine RBC 2-5 A (0-2) #/HPF Urine WBC 0-2 A (NONE SEEN) #/HPF Ur Squamous Epith Cells Few A (NONE/RARE) #/LPF Urine Crystals None seen (None Seen) #/HPF Urine Bacteria Small A (NONE SEEN) #/HPF Urine Casts Seen A (NONE SEEN) #/LPF Hyaline Casts Few Urine Mucus Trace A (NONE SEEN) Imaging Data chest x-ray and CT brain: Radiologist's impression: Procedure: XR chest 1V EXAM: CHEST 1 VIEW HISTORY: weak TECHNIQUE: Chest, one view. COMPARISON: Chest radiograph 11/22/[address] 06/12/2022 FINDINGS: Lungs are hyperinflated with background of mild emphysema. There is bilateral lower lobe atelectasis. No acute consolidation, effusion, or pneumothorax. Borderline cardiomegaly. Pulmonary vasculature within normal limits. IMPRESSION: 1.. Chronic obstructive pulmonary disease with bibasilar atelectasis. No acute consolidation. Recommend followup imaging if symptoms worsen or persist. Electronically authenticated by: KACI WALSH Date: 03/21/2023 11:20 Procedure: CT head/brain wo con EXAM: CT head/brain wo con HISTORY: weak, fall COMPARISON: None. TECHNIQUE: Contiguous transaxial images were obtained from skull base to vertex without administration of intravenous contrast. Dose reduction: mA and/or kV are were adjusted by automated exposure control software based upon patients height and weight. FINDINGS: There is no focal scalp soft tissue swelling or acute calvarial fracture. The visualized globes and orbits are grossly normal. There is paranasal sinus mucosal thickening without air-fluid levels. Bilateral mastoid air cells are clear. The ventricles and sulci are normal for age and symmetric bilaterally. 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 There is mild periventricular and deep subcortical white matter low-attenuation, consistent with small vessel ischemic disease. There is no intraparenchymal hemorrhage, extraaxial fluid collection, mass lesion, or acute large territory ischemia by noncontrast CT. IMPRESSION: 1. No acute intracranial hemorrhage or acute large territory ischemia by noncontrast CT 2. 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 If the patient has a focal neurologic deficit or there is clinical suspicion for acute cerebrovascular accident, brain MRI would be recommended for further evaluation. Electronically authenticated by: WILLY MCBRIDE Date: 03/21/2023 11:23 ECG Data Attestation: I personally reviewed and interpreted this ECG as follows: (EKG on my interpretation shows sinus tachycardia ) Discharge Plan Discharge Chief Complaint: Fall Clinical Impression: Generalized weakness Patient Disposition: Admitted as Observation Time of Disposition Decision: 12:53 Condition: Good Prescriptions / Home Meds: No Action nortriptyline 25 mg capsule 25 mg PO DAILY Qty: 90 0RF gabapentin 600 mg tablet 600 mg PO TID Qty: 270 0RF baclofen 10 mg tablet 10 mg PO TID Qty: 270 0RF oxycodone-acetaminophen [Percocet] 5-325 mg tablet 1 tab PO BID PRN (Reason: pain) Qty: 60 0RF albuterol sulfate 90 mcg/actuation HFA aerosol inhaler INHALATION Q6H cholecalciferol (vitamin D3) 50 mcg (2,000 unit) capsule 50 mcg PO DAILY baclofen 10 mg tablet 10 mg TID amlodipine 10 mg tablet 10 mg PO DAILY gabapentin 600 mg tablet 600 mg PO TID nortriptyline 25 mg capsule 25 mg PO DAILY omeprazole 40 mg capsule,delayed release(DR/EC) 40 mg PO DAILY oxycodone-acetaminophen [Endocet] 5-325 mg tablet 1 tab PO BID PRN (Reason: pain) buspirone 10 mg tablet 10 mg BID multivitamin Tablet 1 tab PO DAILY OCUVITE DAILY naproxen sodium [Aleve] 220 mg capsule 440 mg PO BID PRN (Reason: pain) solifenacin 10 mg tablet 10 mg PO DAILY calcium 500 mg tablet melatonin PO glucosamine HCl .ROUTE meloxicam 15 mg tablet 7.5 mg PO DAILY Referrals: Tierra Newell MD [Primary Care Provider] - 1 week
[2023-03-21 13:12] LABS: Troponin I High Sensitivity 13.8 pg/mL (4.0-51.3)
[2023-03-21 14:01] VITALS: BP 124/77; PULSE 100; RESP 20; TEMP 37.1; O2SAT 93; BMI 37.5
--- NOTE | 2023-03-21 15:01 | P.HP_ITS ---
Patient was not personally seen and examined. I reviewed her chart, discussed her case with Antionette. Agree with her findings and treatment plan Patient presents with generalized weakness. No underlying etiology on initial guan other than mild dehydration. On IVF. PT/OT eval. Monitor and re assess as clinically indicated. H&P: HPI History of Present Illness Chief complaint: GENERAL WEAKNESS/FREQUENT FALLS Narrative: Date/time of exam: 03/21/23 8700 This is a 78-year-old female patient with a past medical history as outlined below Including HTN, chronic pain syndrome with MSK source, COPD, and GERD; who presented to the ED after suffering 2 falls earlier today. Apparently the patient normally is able to ambulate around her house independently but today was so weak she fell twice requiring EMS call out for lift assist. The first time the patient refused to go to the ED but after the second call out she agreed to transport to the ED for further evaluation. The patient denies chest pain, shortness of breath, dizziness, palpitations, cough, fever, peripheral edema, abdominal pain, N/V/D. Work-up in the ED was essentially benign other than evidence of dehydration with mildly worsened renal function from baseline, but no acute disease process was identified. A CXR was negative for acute abnormality, as was a CT of the brain. As the pt was deemed unsafe to return home where she lives alone as she remains very weak. She is being admitted in observation to the hospitalist service At the time of my exam the pt is resting comfortably in bed chatting with her nurse. She is A&O x 3 without evidence of acute confusion/delirium. She only c/o of generalized weakness and being very dry. Her physcial exam is unremarkable other than dry mucous membranes. Review of Systems ROS Status of ROS 10 or more systems reviewed and unremarkable except as noted in history and below [facility] Medical History (Updated 03/21/23 @ 15:09 by Antionette Barros NP) Anxiety ?F41.9 - Anxiety disorder, unspecified (ICD-10) Cervical spondylosis ?M47.812 - Spondylosis without myelopathy or radiculopathy, cervical region (ICD-10) Chronic pain ?G89.29 - Other chronic pain (ICD-10) Chronic prescription opiate use ?Z79.891 - [facility] (current) use of opiate analgesic (ICD-10) COPD (chronic obstructive pulmonary disease) ?J44.9 - Chronic obstructive pulmonary disease, unspecified (ICD-10) GERD (gastroesophageal reflux disease) ?K21.9 - Gastro-esophageal reflux disease without esophagitis (ICD-10) HTN (hypertension) ?I10 - Essential (primary) hypertension (ICD-10) Shoulder arthritis ?M19.019 - Primary osteoarthritis, unspecified shoulder (ICD-10) Surgical History History of back surgery ?Z98.890 - Other specified postprocedural states (ICD-10) History of hysterectomy ?Z90.710 - Acquired absence of both cervix and uterus (ICD-10) History of lumpectomy of left breast ?Z98.890 - Other specified postprocedural states (ICD-10) Social History Gender Identity: female Meds Home Medications and Allergies Home Medications Medication Instructions Recorded Confirmed Type OCUVITE 1 tab PO DAILY 10/26/22 03/21/23 History albuterol sulfate 90 mcg/actuation 2 puff inhalation Q6H 10/26/22 03/21/23 History aerosol inhaler amlodipine 10 mg tablet 10 mg PO DAILY 10/26/22 03/21/23 History baclofen 10 mg tablet 10 mg PO TID 10/26/22 03/21/23 History buspirone 10 mg tablet 10 mg PO BID 10/26/22 03/21/23 History cholecalciferol (vitamin D3) 50 50 mcg PO DAILY 10/26/22 03/21/23 History mcg (2,000 unit) capsule gabapentin 600 mg tablet 600 mg PO TID 10/26/22 03/21/23 History multivitamin 1 tab PO DAILY 10/26/22 03/21/23 History nortriptyline 25 mg capsule 25 mg PO DAILY 10/26/22 03/21/23 History omeprazole 40 mg capsule,delayed 40 mg PO DAILY 10/26/22 03/21/23 History release oxycodone-acetaminophen 5 mg-325 1 tab PO BID PRN pain 10/26/22 03/21/23 History mg tablet (Endocet) baclofen 10 mg tablet 10 mg PO TID #270 tabs 01/24/23 03/21/23 Rx gabapentin 600 mg tablet 600 mg PO TID #270 tabs 01/24/23 03/21/23 Rx nortriptyline 25 mg capsule 25 mg PO DAILY #90 caps 01/24/23 03/21/23 Rx naproxen sodium 220 mg capsule 440 mg PO BID PRN pain 02/05/23 03/21/23 History (Aleve) oxycodone-acetaminophen 5 mg-325 1 tab PO BID PRN pain #60 tabs 02/21/23 03/21/23 Rx mg tablet (Percocet) calcium 500 mg tablet 500 mg PO QDAY 03/21/23 03/21/23 History calcium carbonate 600 mg calcium 600 mg PO DAILY 03/21/23 03/21/23 History (1,500 mg) tablet (Calcium) glucosamine HCl 1 tab PO .QD 03/21/23 03/21/23 History melatonin 1 tab PO .QHS PRN sleep 03/21/23 03/21/23 History meloxicam 15 mg tablet 7.5 mg PO DAILY 03/21/23 03/21/23 History solifenacin 10 mg tablet 10 mg PO DAILY 03/21/23 03/21/23 History Allergies Allergy/AdvReac Type Severity Reaction Status Date / Time No Known Drug Allergies Allergy Verified 03/21/23 10:15 Exam Constitutional Vital Signs, click to edit/add: Last Vital Signs Temp 98.7 F 03/21/23 14:01 Pulse 100 H 03/21/23 14:01 Resp 20 03/21/23 14:01 BP 124/77 03/21/23 14:01 Pulse Ox 93 L 03/21/23 14:01 O2 Del Method Room Air 03/21/23 14:01 Common normals: no apparent distress, oriented x3 and alert General appearance: cooperative Nutritional appearance: overweight Orientation/consciousness: Yes awake HENKS Common normals: normocephalic, head/scalp atraumatic, hearing grossly normal bilaterally and external nose normal; oral mucous membranes not moist Eye Common normals: PERRL, EOMs intact bilaterally, conjunctivae normal and no scleral icterus Alignment: alignment normal Pupil: PERRL Chest Common normals: inspection of chest normal Chest: symmetrical chest wall rise Respiratory Common normals: normal respiratory effort, no retractions, no use of accessory muscles and clear to auscultation bilaterally Effort & inspection: able to speak in complete sentences Auscultation: diminished lung sounds (BLL) Cardio Common normals: no JVD, regular rate, regular rhythm, S1 normal heart sound, S2 normal heart sound, no gallops, no clicks, no murmurs, no rub and peripheral pulses 2+ throughout GI Common normals: Normal to inspection, nondistended, normoactive bowel sounds present, soft to palpation, non-tender, no hepatosplenomegaly, no masses and no bruits Bladder/kidney exam: bladder normal to palpation Extremity Common normals: normal capillary refill and no pedal edema General: normal exam except as noted; no clubbing and no cyanosis Neuro [place] Coma Scale: GCS not evaluated Common normals: oriented x3, CN's II-XII intact bilaterally, moves all extremities, no focal motor deficits and no sensory deficits noted Psych Common normals: mental status grossly normal, thought process normal, affect normal and activity/motor behavior normal Results Labs Labs: Short CBC 03/21/23 Range/Units 10:35 WBC 13.9 H (4.0-11.0) 10^3/uL Hgb 15.2 (12.0-16.0) g/dL Hct 49.1 H (36.0-48.0) % Plt Count 245 (150-450) 10^3/uL BMP 03/21/23 10:35 Sodium 140 Potassium 3.9 Chloride 107 Carbon Dioxide 24.4 BUN 22.0 H Creatinine 1.52 H Glucose 117 H Calcium 9.4 Urine 03/21/23 Range/Units 10:51 Urine Color Dk. yellow (YELLOW) Urine Clarity Clear (CLEAR) Urine pH 5.0 (5.0-9.0) Ur Specific [place] >=1.030 A (1.005-1.025) Urine Protein Trace (NEG/TRACE) mg/dL Urine Glucose (UA) Negative (NEGATIVE) mg/dL Pulse Oximetry Attestation: I have reviewed the pertinent pulse oximetry results. Assessment and Plan Assessment and Plan (1) Acute kidney injury superimposed on CKD: Assessment and Plan: ACUTE * Adm observation * Risk for SOLO w/ 50% increase in Cr from baseline (RIFLE) * NS IVF bolus given in the ED * LR maintenance IVF at 125/hr * Monitor fluid balance * CMP in AM (2) Dehydration: Assessment and Plan: ACUTE * Clinically dehydrated on exam and pt c/o of being very dry * IVF as above * Encourage PO intake * CMP in AM (3) Generalized weakness: Assessment and Plan: ACUTE * Unclear etiology * No acute infectious process identified on CXR, labs or UA but leukocytosis noted * Check Mag and TSH * Unlikely serotonin syndrome as symptoms are not consistent with this but continue to monitor. Pt on Nortriptyline and Buspar x 1 yr * Neuro checks q4h - low clinical suspicion of acute neurologic event - consider MRI brain pending clinical course * PT OT consults * Ambulate as tolerated w/ at least SBA at all times (4) Frequent falls: Assessment and Plan: ACUTE * High fall risk - bed alarms at all times * PT/OT as above * Consider HH at discharge for further close monitoring and PT strengthening (5) Anxiety: Assessment and Plan: CHRONIC * Continue home buspar for now - low threshold to hold if pt develops symptoms more concerning for serotonin syndrome (6) Chronic pain: Assessment and Plan: CHRONIC * Continue home gabapentin, baclofen, nortriptyline, Percocet PRN * Pt follows w/ pain clinic as outpatient (7) GERD (gastroesophageal reflux disease): Assessment and Plan: CHRONIC * Continue home PPI (8) HTN (hypertension): Assessment and Plan: CHRONIC * Continue home amlodipine
[2023-03-21] MEDS: ENOXAPARIN SODIUM 40 MG/0.4 ML SYRINGE SUBQ (15:51)
[2023-03-21] MEDS: LACTATED RINGER'S SOLUTION 1,000 ML 125 ML IV (15:51)
[2023-03-21 15:53] LABS: Thyroid Stimulating Hormone 1.023 uIU/mL (0.358-3.740)
[2023-03-21 16:02] LABS: Magnesium 2.1 mg/dL (1.8-2.4)
[2023-03-21 20:11] VITALS: BP 158/80; PULSE 101; RESP 20; TEMP 37.4; O2SAT 90
[2023-03-21] MEDS: OXYCODONE HCL/ACETAMINOPHEN 5MG/325MG 1 TAB PO (20:21)
[2023-03-21] MEDS: BUSPIRONE HCL 10 MG TABLET PO (20:21)
[2023-03-21] MEDS: GABAPENTIN 300 MG CAPSULE 600 MG PO (21:00)
[2023-03-21] MEDS: BACLOFEN 10 MG TABLET PO (21:00)
[2023-03-22] MEDS: LACTATED RINGER'S SOLUTION 1,000 ML 125 ML IV ×2 (00:40→08:48)
[2023-03-22 03:54] VITALS: BP 161/78; PULSE 95; RESP 20; TEMP 36.8; O2SAT 90
[2023-03-22] MEDS: BACLOFEN 10 MG TABLET PO ×2 (05:01→13:58)
[2023-03-22] MEDS: GABAPENTIN 300 MG CAPSULE 600 MG PO ×2 (05:01→13:59)
[2023-03-22 05:50] LABS: Basophils Absolute Auto 0.1 10^3/uL (0.0-0.1); Basophils Percent Auto 0.5 % (0.2-2.0); Eosinophils Absolute Auto 0.2 10^3/uL (0.0-0.7); Eosinophils Percent Auto 1.2 % (0.9-7.0); Hematocrit 39.4 % (36.0-48.0); Hemoglobin 12.4 g/dL (12.0-16.0); Immature Granulocytes Abs Auto 0.05 10^3/uL (0.00-0.03); Immature Granulocytes Pct Auto 0.3 % (0.0-0.5); Lymphocytes Absolute Auto 1.9 10^3/uL (1.2-3.8); Lymphocytes Percent Auto 12.2 % (20.5-60.0); Mean Corpuscular HGB Conc 31.5 g/dL (29.9-35.2); Mean Corpuscular Hemoglobin 29.7 pg (26.7-34.0); Mean Corpuscular Volume 94.5 fL (81.0-99.0); Mean Platelet Volume 11.5 fL (9.5-13.5); Monocytes Absolute Auto 0.8 10^3/uL (0.3-0.8); Monocytes Percent Auto 5.2 % (1.7-12.0); Neutrophils Absolute Auto 12.3 10^3/uL (1.4-6.5); Neutrophils Percent Auto 80.6 % (43.0-75.0); Platelet Count 205 10^3/uL (150-450); Red Blood Count 4.17 10^6/uL (4.20-5.40); Red Cell Distribution Width 14.8 % (11.0-15.0); White Blood Count 15.3 10^3/uL (4.0-11.0)
[2023-03-22 06:20] LABS: Alanine Aminotransferase 19 U/L (14-59); Albumin Globulin Ratio 0.8; Albumin Level 2.7 g/dL (3.4-5.0); Alkaline Phosphatase 74 U/L (46-116); Anion Gap 10.4; Aspartate Amino Transferase 25 U/L (15-37); BUN Creatinine Ratio 21.1; Bilirubin Total 0.7 mg/dL (0.2-1.0); Calcium 8.9 mg/dL (8.5-10.1); Carbon Dioxide 23.4 mmol/L (21.0-32.0); Chloride 108 mmol/L (98-107); Estimated GFR (African America 56 (>=60); Estimated GFR (Non-African Ame 46 (>=60); Globulin 3.3 g/dL; Glucose 96 mg/dL (74-106); Potassium 3.8 mmol/L (3.5-5.1); Sodium 138 mmol/L (136-145)
[2023-03-22] MEDS: ENOXAPARIN SODIUM 40 MG/0.4 ML SYRINGE SUBQ (08:33)
[2023-03-22] MEDS: BUSPIRONE HCL 10 MG TABLET PO (08:34)
[2023-03-22] MEDS: AMLODIPINE BESYLATE 5 MG TABLET 10 MG PO (08:34)
[2023-03-22] MEDS: OMEPRAZOLE 40 MG CAPSULE.DR PO (08:34)
[2023-03-22] MEDS: SOLIFENACIN SUCCINATE 10 MG TABLET PO (08:34)
[2023-03-22] MEDS: NORTRIPTYLINE HCL 25 MG CAPSULE PO (08:34)
--- NOTE | 2023-03-22 10:17 | CM.NOTE ---
Medicare Outpatient Observation notice discussed with pt, pt verbalizes understanding and signs paper. Original given to pt and copy placed on pt's chart.
--- NOTE | 2023-03-22 13:30 | P.DS_ITS ---
Seen and examined. Doing well. No complaints to offer. Reviewed her chart, case d/w Antionette. Agree with her treatment plan and findings. Exam: Laying in bed, NAD CTA b/l, No wheezing Normal S1, S2, no murmur Assessment and Plan Suspected UTI Dehydration SOLO Generalized weakness More or less at baseline today. Feels well today. PT/OT eval. Ambulated well with walker. Stable for d/c to home. DS: Providers Provider Date of admission: 03/21/23 12:53 Primary care physician: Tierra Newell MD Consults: 03/21/23 14:54 Physical Therapy Eval and Treat Routine Reason for consultation: Frequent falls/weakness Has provider been notified: No 03/21/23 14:55 Occupational Therapy Eval and Treat Routine Reason for consultation: Frequent falls/weakness Has provider been notified: No Discharging clinician: Antionette Barros DS: Diagnosis Discharge Diagnosis (1) Acute kidney injury superimposed on CKD: (2) Dehydration: (3) Generalized weakness: (4) Frequent falls: (5) Anxiety: (6) Chronic pain: (7) GERD (gastroesophageal reflux disease): (8) HTN (hypertension): (9) Leukocytosis: DS: Summary Hospital Course Hospital Course: The pt was admitted to observation with SOLO, dehydration, and generalized weakness. She also was noted to have leukocytosis without any infectious source being identified. She was treated with IVFs and her dehydration and SOLO resolved by the time of discharge. As her WBC continued to rise (without fever/chills, or infectious symptoms), a repeat UA was ordered and she was treated empirically with Macrobid for 3 days for suspected UTI pending culture results. She is being discharged home in stable condition with a referral to outpatient PT for further strengthening. She should follow-up with her PCP in 5 to 7 days. Time Spent with Patient Time attestation: Total time spent providing and/or coordinating discharge services: Time spent: greater than 30 minutes Specific discharge activities: Physical exam, discussion of discharge plan, questions answered. Exam Constitutional Vital Signs, click to edit/add: Last Vital Signs Temp 98.3 F 03/22/23 03:54 Pulse 95 H 03/22/23 03:54 Resp 20 03/22/23 03:54 BP 161/78 H 03/22/23 03:54 Pulse Ox 90 L 03/22/23 03:54 O2 Del Method Room Air 03/22/23 03:54 Common normals: no apparent distress, oriented x3 and alert General appearance: cooperative Orientation/consciousness: Yes awake HENMT Common normals: normocephalic and head/scalp atraumatic Eye Common normals: PERRL, EOMs intact bilaterally, conjunctivae normal and no scleral icterus Respiratory Common normals: normal respiratory effort, no use of accessory muscles and clear to auscultation bilaterally Effort & inspection: able to speak in complete sentences and symmetric chest movement Auscultation: wheezes (BLL faint EE, L>R) Cardio Common normals: no JVD, regular rate, regular rhythm, S1 normal heart sound, S2 normal heart sound and peripheral pulses 2+ throughout Heart sounds: murmur (HSM 2/6) GI Common normals: Normal to inspection, nondistended, normoactive bowel sounds present, soft to palpation and non-tender Bladder/kidney exam: bladder normal to palpation Extremity Common normals: normal to inspection, full ROM, normal capillary refill and no pedal edema General: no clubbing and no cyanosis Neuro Common normals: moves all extremities, no focal motor deficits and no sensory deficits noted Speech: speech normal Psych Common normals: mental status grossly normal and activity/motor behavior normal DS: Data Data Completed and Pending Labs on day of discharge: Labs from last 24 hours 03/22/23 03/21/23 04:51 10:35 WBC 15.3 H RBC 4.17 L Hgb 12.4 Hct 39.4 MCV 94.5 MCH 29.7 MCHC 31.5 RDW 14.8 Plt Count 205 MPV 11.5 Neut % (Auto) 80.6 H Lymph % (Auto) 12.2 L [place] % (Auto) 5.2 Eos % (Auto) 1.2 Baso % (Auto) 0.5 Neut # (Auto) 12.3 H Lymph # (Auto) 1.9 [place] # (Auto) 0.8 Eos # (Auto) 0.2 Baso # (Auto) 0.1 Abs Immat Gran (auto) 0.05 H Imm/Tot Granulo (auto) 0.3 Sodium 138 Potassium 3.8 Chloride 108 H Carbon Dioxide 23.4 Anion Gap 10.4 BUN 24.0 H Creatinine 1.14 H Est GFR ( Amer) 56 L Est GFR (Non-Af Amer) 46 L BUN/Creatinine Ratio 21.1 Glucose 96 Calcium 8.9 Magnesium 2.1 Total Bilirubin 0.7 AST 25 ALT 19 Alkaline Phosphatase 74 Total Protein 6.0 L Albumin 2.7 L Globulin 3.3 Albumin/Globulin Ratio 0.8 TSH 1.023 Discharge Plan Discharge Disposition: Home, Self-Care Condition: Good Discharge Medications: New nitrofurantoin monohyd/m-cryst [Macrobid] 100 mg capsule 100 mg PO BID 3 Days Qty: 6 0RF Rx Instructions: must administer with a meal/food Continued oxycodone-acetaminophen [Percocet] 5-325 mg tablet 1 tab PO BID PRN (Reason: pain) Qty: 60 0RF cholecalciferol (vitamin D3) 50 mcg (2,000 unit) capsule 50 mcg PO DAILY amlodipine 10 mg tablet 10 mg PO DAILY gabapentin 600 mg tablet 600 mg PO TID nortriptyline 25 mg capsule 25 mg PO DAILY omeprazole 40 mg capsule,delayed release(DR/EC) 40 mg PO DAILY buspirone 10 mg tablet 10 mg PO BID multivitamin Tablet 1 tab PO DAILY OCUVITE tablet 1 tab PO DAILY naproxen sodium [Aleve] 220 mg capsule 440 mg PO BID PRN (Reason: pain) solifenacin 10 mg tablet 10 mg PO DAILY melatonin 1 tab PO .QHS PRN (Reason: sleep) glucosamine HCl 1 tab PO .QD meloxicam 15 mg tablet 7.5 mg PO DAILY calcium carbonate [Calcium 600] 600 mg calcium (1,500 mg) tablet 600 mg PO DAILY Changed baclofen 10 mg tablet 10 mg PO TID PRN (Reason: muscle spasm) Qty: 270 0RF Activity: ambulate only with your walker Diet: advance to your usual diet 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 Set information to outpatient Rehabilitation Services-they will call to schedule patient for outpatient PT/OT eval. Forms: Portal Instructions Follow Up Appointments: Follow up appt. with Dr. Newell on @ 10am Office #: [phone]
[2023-03-22 14:55] LABS: Bilirubin Urine NEGATIVE (NEGATIVE); Blood Urine NEGATIVE (NEGATIVE); Clarity Urine CLEAR (CLEAR); Color Urine LT. YELLOW (YELLOW); Glucose Urine UA NEGATIVE (NEGATIVE); Ketones Urine NEGATIVE (NEGATIVE); Leukocyte Esterase Urine SMALL (NEGATIVE); Nitrite Urine POSITIVE (NEGATIVE); Protein Urine NEGATIVE (NEG/TRACE); Specific Gravity Urine 1.015 (1.005-1.025); Urobilinogen Urine 0.2 EU/dL (0.2-1.0); pH Urine 5.5 (5.0-9.0)
[2023-03-22] MEDS: OXYCODONE HCL/ACETAMINOPHEN 5MG/325MG 1 TAB PO (16:35)
--- OUTSIDE RECORDS SUMMARY | 2023-05-01 13:44 | XMS_ITS | CCD ---
Author Name Unknown Address [facility] [address] [facility] [address] [place] [address] Organization [facility] Care Team Providers Care Food Checker Name Role Phone Unavailable Primary Care Provider UnavailJEREMIAH Max Primary Care Physician BRENT MALDONADO Consulting Unavailable LAKSHMIPATHY ., BARBARA Admitting Chelly vailable LAKSHMIPATHY ., BARBARA Attending Chelly vailable REED, DR JEREMIAH Poole Primary Care Unavailable LAKSHMIPATHY ., NARGUERREROATH Consulting Chelly vailable JERRYSHMIPATHY ., BARBARA Attending Chelly vailable JERRYSHMIPATHY ., JAZMINATH Admitting Chelly vailable REED, DR JEREMIAH Poole Primary Care Unavailable REED, DR JEREMIAH Poole Primary Care Unavailable SAMSA ., LEANDRA Attending Unavailable SAMSA ., LEANDRA Admitting Unavailable SAMSA ., LEANDRA Consulting Unavailable ZIEBROYER, DR EHSAN Haskins Consulting Unavailable DEREK, DR JEREMIAH Poole Primary Care Unavailable REED, DR JEREMIAH Poole Attending Unavailable REED, DR JEREMIAH Poole Admitting Unavailable REED, DR JEREMIAH Poole Consulting Unavailable REED, DR JEREMIAH Poole Attending Unavailable REED, DR JEREMIAH Poole Primary Care Unavailable REED, DR JEREMIAH Poole Admitting Unavailable REED, DR JEREMIAH Poole Consulting Unavailable SHANNON, DR SHIREEN Jamil Admitting Unavailabl e SHANNON, DR SHIREEN Jamil Consulting Unavailabl e SHANNON, DR SHIREEN Jamil Attending Unavailabl e REED, DR JEREMIAH Poole Primary Care Unavailable SIMONA .TIO Consulting Unavailable ANIRUDH BARAHONA Consulting Unavailable ISAC CONNOR Consulting Unavailable GAYATRI, DR HARSHAL Lockhart Attending Unavailable GAYATRI, DR HARSHAL Lockhart Admitting Unavailable DEREK, DR JEREMIAH Poole Primary Care Unavailable NIESHA .DR SAAB Consulting Unavailable AMITA .DR MEGAN Consulting Unavailable PAUL, DR EHSAN Haskins Consulting Unavailable GAYATRI, DR HARSHAL Lockhart Consulting Unavailable CHANI HWANG Consulting Unavailable EUN BARRY Consulting Unavailable DEREK, DR JEREMIAH Poole Primary Care Unavailable LAKSHMIPATHY ., NARENDRANATH Attending Chelly vailable LAKSHMIPATHY ., NARENDRANATH Admitting Chelly vailable LAKSHMIPATHY ., NARENDRANATH Consulting Chelly vailable RAMOS ., DR FELISHA Page Attending Unavailable RAMOS ., DR FELISHA Page Admitting Unavailable ZIEBROYER, DR EHSAN Haskins Consulting Unavailable REED, DR JREEMIAH Poole Primary Care Unavailable SAMSA ., LEANDRA Consulting Unavailable FLORES ., MARTIN Consulting Unavailable RAMOS ., DR FELISHA Page Admitting Unavailable RAMOS ., DR FELISHA Page Consulting Unavailable RAMOS ., DR FELISHA Page Attending Unavailable REED, DR JEREMIAH Poole Primary Care Unavailable RAMOS ., DR FELISHA Page Admitting Unavailable RAMOS ., DR FELISHA Page Attending Unavailable FLORES ., MARTIN Consulting Unavailable REED, DR JEREMIAH Poole Primary Care Unavailable RAMOS ., DR FELISHA Page Admitting Unavailable RAMOS ., DR FELISHA Page Attending Unavailable REED, DR JEREMIAH Poole Primary Care Unavailable REED, DR JEREMIAH Poole Consulting Unavailable FLORES ., MARTIN Consulting Unavailable RAMOS ., DR FELISHA Page Attending Unavailable RAMOS ., DR FELISHA Page Admitting Unavailable REED, DR JEREMIAH Poole Consulting Unavailable REED, DR JEREMIAH Poole Primary Care Unavailable FLORES ., MARTIN Consulting Unavailable LAKSHMIPATHY ., NARENDRANATH Admitting Chelly vailable LAKSHMIPATHY ., NARENDRANATH Consulting Chelly vailable LAKSHMIPATHY ., NARENDRANATH Attending Chelly vailable DEREK, DR JEREMIAH Poole Primary Care Unavailable LAKSHMIPATHY ., NARENDRANATH Attending Chelly vailable LAKSHMIPATHY ., NARENDRANATH Admitting Chelly vailable DEREK, DR JEREMIAH Poole Primary Care Unavailable PAUL, DR EHSAN Haskins Consulting Unavailable SAMSA ., LEANDRA Attending Unavailable DEREK, DR JEREMIAH Poole Referring Unavailable DEREK, DR JEREMIAH Poole Primary Care Unavailable SAMSA ., LEANDRA Admitting Unavailable SAMSA ., LEANDRA Consulting Unavailable DEREK, DR JEREMIAH Poole Primary Care Unavailable LAKSHMIPATHY ., NARENDRANATH Attending Chelly vailable LAKSHMIPATHY ., NARENDRANATH Admitting Chelly vailable Serena Tejeda Consulting Unavailable NAYAN .LINDSAY Consulting Unavailable BARRON, DR PEYTON Haskins Consulting Unavailable SHANNON, DR SHIREEN Jamil Attending Unavailchelsea ORTEGA, DR SHIREEN Jamil Admitting Unavailchelsea e DEREK, DR JEREMIAH Poole Primary Care Unavailable BRENT LONG Consulting Unavailable PAUL, DR EHSAN Haskins Consulting Unavailable LAKSHMIPATHY ., NARTAMIKA Attending Chelly vailable LAKSHMIPATHY ., BARBARA Admitting Chelly vailable REED, DR JEREMIAH Poole Primary Care Unavailable LAKSHMIPATHY ., NARGUERREROATH Consulting Chelly vailable RAMOS ., DR FELISHA Page Admitting Unavailable RAMOS ., DR FELISHA Page Consulting Unavailable RAMOS ., DR FELISHA Page Attending Unavailable DEREK, DR JEREMIAH Poole Primary Care Unavailable REED, DR JEREMIAH Poole Admitting Unavailable REED, DR JEREMIAH Poole Primary Care Unavailable REED, DR JEREMIAH Poole Attending Unavailable Jeremiah Reed Unavailable Nandini BERNAL, Andjameel Glaser Attending Unavailable Giedraitis , Andrius Glaser Attending Unavailable Giedraitis , Andrius Jailyn Attending Unavailable Giedraitis , Andrius Vytedwardo Attending Unavailable Giedraitis , Andrius Vytedwardo Attending Unavailable Ray Fofana Unavailable BRENDA MARIN Attending Unavailable BRENDA MARIN Attending Unavailable [place], Ehsan Consulting Unavailable Moussawi, Ahmad Admitting Unavailable Moussnadja, Ahmad Attending Unavailable [place], Ehsan Consulting Unavailable [place], Ehsan Consulting Unavailable [place], Ehsan Consulting Unavailable [place], Ehsan Consulting Unavailable [place], Ehsan Consulting Unavailable [place], Ehsan Consulting Unavailable [place], Ehsan Consulting Unavailable [place], Ehsan Consulting Unavailable Allergies Allergy Classification Reported Allergen(s) Allergy Type Date of Onset Reaction(s) Facility (4 sources) patient allergy list reviewed by nurse or physicia Propensity to adverse reactions Comment:Done [employer] Other (4 sources) Allergies Reconciled Propensity to adverse reactions Unknown [employer] Other Medications Current Medications Medication Drug Class(es) Dates Sig (Normalized) Sig (Original) acetaminophen 325 mg oral tablet (1 source) Start: 04-13-2023 take 2 tablets by mouth every six hours as needed for pain acetaminophen 325 mg Tab 650 mg = 2 tab(s), Oral, q6hr, PRN Pain, Refills(s) 0 Start Date: 04/13/23 Status: Ordered acetaminophen 325 mg / oxyCODONE hydrochloride 2.5 mg oral tablet (2 sources) Opioid Agonist Start: 02-18-2019 take 1 tablet by mouth every twelve hours as needed for pain acetaminophen-oxyc odone 325 mg-2.5 mg oral tablet 1 tab(s), Oral, q12hr as needed for pain, Refill(s) 0 Start Date: 02/18/19 Status: Ordered amLODIPine 10 mg oral tablet (6 sources) Dihydropyridine Calcium Channel Harlan Start: 04-21-2022 take 1 tablet by mouth once daily amlodipine 10mg amLODIPine 10mg, 1 (one) Tablet daily # 30, 04/21/2022, No Refill. Active oral daily for 30 *Reorder from [employer] for eRx and Interaction Alerts* Apr, Active Start: 02-11-2019 take 2 tablets by [facility] once daily amLODIPine 2.5 mg Tab 5 mg = 2 tab(s), Oral, Daily, # 90 tab(s), Refills(s) 0 Start Date: 02/11/19 Status: Ordered Ocuvite (2 sources) Vitamin C Start: 02-03-2021 Ocuvite Oral, Daily, Refill(s) 0 Start Date: 02/03/21 Status: Ordered aspirin 81 mg delayed release oral tablet (1 source) Platelet Aggregation Inhibitor, Nonsteroidal Anti-inflammatory Drug Start: 04-13-2023 take 1 tablet by mouth once daily aspirin 81 mg Oral EC Tab 81 mg = 1 tab(s), Oral, Daily, Refills(s) 0 Start Date: 04/13/23 Status: Ordered baclofen 10 mg oral tablet (6 sources) gamma-Aminobutyric Acid-ergic Agonist Start: 03-31-2021 Baclofen 10MG Baclofen( 10MG Oral ) Active -Hx Entry Oral for 0 *Pick strength-form from [employer] for eRX* Mar, Active Start: 03-31-2021 take 5 mg by mouth t hree times daily baclofen 10 mg Tab 5 mg = 0.5 tab(s), Oral, TID, Refills(s) 0 Start Date: 03/31/21 Status: Ordered busPIRone hydrochloride 10 mg oral tablet (5 sources) Start: 02-03-2021 take 1 mg by mouth twice daily busPIRone 10 mg Tab mg tab(s), Oral, BID, Refills(s) 0 Start Date: 02/03/21 Status: Ordered calcium citrate 950 mg oral tablet (1 source) Start: 06-21-2022 take 1 mg by mouth twice daily calcium (as calcium citrate) 200 mg oral tablet mg tab(s), Oral, BID, Refills(s) 0 Start Date: 06/21/22 Status: Ordered gabapentin 300 mg oral capsule (6 sources) Anti-epilepti c Agent Start: 04-13-2023 take 1 capsule by mouth three times daily gabapentin 300 mg Cap 300 mg = 1 cap(s), Oral, TID, Refills(s) 0 Start Date: 04/13/23 Status: Ordered Start: 02-11-2019 take 1 tablet by buffy th three times daily gabapentin 600 mg Tab 600 mg = 1 tab(s), Oral, TID, Refills(s) 0 Start Date: 02/11/19 Status: Ordered glucosamine 500 mg oral tablet (5 sources) Start: 02-11-2019 take 500 mg by mouth twice daily glucosamine 500 mg, Oral, BID, Refills(s) 0 Start Date: 02/11/19 Status: Ordered take 2 capsules by mouth once da patti Glucosamine 500 MG 2capsule with a meal Orally Once a day Active Handicap Placard (4 sources) Start: 11-25-2019 Handicap Placard HandiCap Placard , as directed # 1, 11/25/2019, No Refill. Active as directed for 0 duration 5 years *Reorder from [employer] for eRx and Interaction Alerts* Nov, Active Melatonin (2 sources) Start: 02-03-2021 melatonin Once a day (at bedtime), Refills(s) 0 Start Date: 02/03/21 Status: Ordered meloxicam 15 mg oral tablet (5 sources) Nonsteroidal Anti-inflammatory Drug Start: 04-12-2022 take 15 mg by mouth once daily Meloxicam 15 MG meloxicam( 15mg oral daily ) Active -Hx Entry Oral daily for 0 Mar, Active nortriptyline 25 mg oral capsule (6 sources) Tricyclic Antidepressant Start: 02-11-2019 take 1 capsule by mouth at bedtime nortriptyline 25 mg Cap 25 mg = 1 cap(s), Oral, Bedtime, Refills(s) 0 Start Date: 02/11/19 Status: Ordered omeprazole 40 mg delayed release oral capsule (6 sources) Proton Pump Inhibitor Start: 02-11-2019 take 1 capsule by mouth once daily Omeprazole 40 MG Omeprazole 40MG, 1 (one) Capsule Capsule daily # 90, 10/11/2021, Ref. x3. Active Oral daily for 0 September, Active solifenacin succinate 10 mg oral tablet (6 sources) Cholinergic Muscarinic Antagonist Start: 06-21-2022 End: 06-16-2023 take 1 tablet by mouth once daily Vesicare 10 mg Tab 10 mg = 1 tab(s), Oral, Daily, X 30 day(s), # 30 tab(s), Refills(s) 11, Pharmacy: [id number], 165, cm, 06/21/22 14:53:00 EST, Height/Length Dosing, 87, kg, 06/21/22 14:53:00 EST, Weight Dosing Start Date: 06/21/22 Stop Date: 06/16/23 Status: Ordered Tudorza Pressair 400mcg/actuat (4 sources) Start: 04-12-2022 take 1 puff(s) by inhalation twice daily Tudorza Pressair 400mcg/actuat Tudorza Pressair 400mcg/actuat, 1 (one) Puff BID # 1, 04/12/2022, Ref. x12. Active inhalation BID *Pick strength-form from [employer] for eRX* Mar, Active Start: 04-12-2022 take 1 puff(s) by in halation twice daily Tudorza Pressair 400mcg/actuat Tudorza Pressair 400mcg/actuat, 1 (one) Puff BID # 1, 04/12/2022, Ref. x12. Active inhalation BID for 30 *Pick strength-form from [employer] for eRX* Mar, Active Vision Formula (4 sources) Vision Formula A ctive Problems Active Problems Problem Classification Problem Date Documented Date Episodic/Chronic Abdominal hernia (1 source) Diaphragmatic hernia without obstruction or gangrene; Translations: [DIAPH HERNIA W/O OBST/GANGRENE] Onset: 3 Episodic Abdominal pain (2 sources) Abdominal tenderness 02-03-2021 Episodic Anxiety disorders (5 sources) Anxiety; Translations: [Anxiety] Onset: 3 Chronic Chronic kidney disease (4 sources) Chronic kidney disease stage 3; Translations: [Chronic kidney disease, stage 3 (moderate)] Chronic Chronic obstructive pulmonary disease and bronchiectasis (10 sources) Centrilobular emphysema; Translations: [Chronic obstructive pulmonary disease with (acute) exacerbation] Onset: 2 Chronic Diseases of white blood cells (1 source) Elevated white blood cell count, unspecified; Translations: [ELEVATED WHITE BLOOD CELL COUNT UNS] Onset: 2 Chronic Esophageal disorders (1 source) Gastroesophageal reflux disease without esophagitis; Translations: [Gastro-esophageal reflux disease without esophagitis] Onset: 3 Chronic Essential hypertension (6 sources) Essential (primary) hypertension; Translations: [Hypertensive disorder] Onset: 2 Chronic Genitourinary symptoms and ill-defined conditions (11 sources) Dysuria; Translations: [Increased frequency of urination] Onset: 2 02-03-2021 Episodic Hypertension with complications and secondary hypertension (5 sources) Hypertensive chronic kidney disease with stage 1 through stage 4 chronic kidney disease, or unspecified chronic kidney disease; Translations: [Hypertensive renal disease] Onset: 2 Chronic Malaise and fatigue (2 sources) Other fatigue; Translations: [Weakness] Onset: 2 Episodic Mood disorders (1 source) Depressive disorder; Translations: [Depression, unspecified] Onset: 3 Chronic Nutritional deficiencies (4 sources) Vitamin D deficiency, unspecified; Translations: [VITAMIN D DEFICIENCY UNSPECIFIED] Onset: 2 Chronic Osteoarthritis (1 source) Unspecified osteoarthritis, unspecified site; Translations: [UNSPECIFIED OSTEOARTHRITIS UNS SITE] Onset: 2 Chronic Other aftercare (1 source) Long-term current use of drug therapy; Translations: [Other fdc (current) drug therapy] Onset: 3 Episodic Other connective tissue disease (1 source) Other muscle spasm; Translations: [OTHER MUSCLE SPASM] Onset: 3 Episodic Other diseases of bladder and urethra (2 sources) Detrusor overactivity; Translations: [Overactive bladder] Onset: 3 Chronic Other diseases of bladder and urethra (2 sources) Overactive bladder 03-31-2021 Chronic Other diseases of bladder and urethra (1 source) Male urethral stricture; Translations: [Unspecified urethral stricture, male, unspecified site] Onset: 3 Episodic Other diseases of bladder and urethra (2 sources) Traumatic urethral stricture 02-03-2021 Episodic Other diseases of bladder and urethra (2 sources) Urethral stricture 02-11-2019 Episodic Other diseases of kidney and ureters (4 sources) Hyperparathyroidism due to renal insufficiency; Translations: [Secondary hyperparathyroidism of renal origin] Chronic Other endocrine disorders (4 sources) Primary hyperparathyroidism; Translations: [Primary hyperparathyroidism] Chronic Other endocrine disorders (4 sources) Hyperparathyroidism; Translations: [Hyperparathyroidism, unspecified] Chronic Other nervous system disorders (1 source) Polyneuropathy, unspecified; Translations: [POLYNEUROPATHY UNSPECIFIED] Onset: 3 Chronic Other nervous system disorders (1 source) Other chronic pain; Translations: [OTHER CHRONIC PAIN] Onset: 2 Chronic Other nervous system disorders (1 source) Polyneuropathy; Translations: [Polyneuropathy, unspecified] Onset: 3 Chronic Other non-traumatic joint disorders (5 sources) Pain in right shoulder; Translations: [PAIN IN RIGHT SHOULDER] Onset: 3 Episodic Other nutritional; endocrine; and metabolic disorders (4 sources) Hypercalcemia; Translations: [Hypercalcemia] Chronic Other nutritional; endocrine; and metabolic disorders (1 source) Obesity; Translations: [Obesity, unspecified] Onset: 3 Chronic Other screening for suspected conditions (not mental disorders or infectious disease) (6 sources) Encounter for screening mammogram for malignant neoplasm of breast; Translations: [Encounter for screening for malignant neoplasm of colon] Onset: 2 Episodic Pneumonia (except that caused by tuberculosis or sexually transmitted disease) (5 sources) Pneumonia, unspecified organism; Translations: [PNEUMONIA UNSPECIFIED ORGANISM] Onset: 2 Episodic Residual codes; unclassified (4 sources) Chronic pain; Translations: [Chronic pain] Episodic Residual codes; unclassified (1 source) Altered mental status; Translations: [Altered mental status, unspecified] Onset: 3 Episodic Spondylosis; intervertebral disc disorders; other back problems (12 sources) Spondylosis without myelopathy or radiculopathy, cervical region; Translations: [Spondylosis without myelopathy or radiculopathy, lumbar region] Onset: 2 Chronic Spondylosis; intervertebral disc disorders; other back problems (9 sources) Backache; Translations: [Cervicalgia] Onset: 2 02-11-2019 Episodic Sprains and strains (8 sources) Strain of muscle(s) and tendon(s) of the rotator cuff of right shoulder, subsequent encounter; Translations: [Strain of muscle(s) and tendon(s) of the rotator cuff of right shoulder, initial encounter] Onset: 3 Episodic Substance-related disorders (2 sources) Cigarette smoker 10-21-2019 Chronic Thyroid disorders (1 source) Nontoxic single thyroid nodule; Translations: [NONTOXIC SINGLE THYROID NODULE] Onset: 3 Chronic Unclassified (3 sources) LOW BACK PAIN, UNSPECIFIED; Translations: [LOW BACK PAIN, UNSPECIFIED] Onset: 3 Unclassified (1 source) CHRN KIDNEY DISEASE STG 3 UNSP; Translations: [CHRN KIDNEY DISEASE STG 3 UNSP] Onset: 2 Unclassified (1 source) CONTACT W/AND (SUSP) EXPOS COVID-19; Translations: [CONTACT W/AND (SUSP) EXPOS COVID-19] Onset: 2 Urinary tract infections (2 sources) Chronic cystitis 10-21-2019 Chronic Urinary tract infections (2 sources) Acute urinary tract infection 02-03-2021 Episodic Past or Other Problems Problem Classification Problem Date Documented Da te Episodic/Chronic Acute and unspecified renal failure (1 source) Acute kidney failure, unspecified; Translations: [ACUTE KIDNEY FAILURE UNSPECIFIED] Onset: 11-24-2021 Episodic Cardiac dysrhythmias (1 source) Tachycardia, unspecified; Translations: [TACHYCARDIA UNSPECIFIED] Onset: 11-24-2021 Episodic E Codes: Fall (1 source) Fall on same level from slipping, tripping and stumbling with subsequent striking against other object, initial encounter; Translations: [FALL SAME LVL SLIP STRK OTH OBJ INT] Onset: 01-09-2022 Episodic Lymphadenitis (1 source) Localized enlarged lymph nodes; Translations: [LOCALIZED ENLARGED LYMPH NODES] Onset: 02-25-2022 Episodic Other aftercare (1 source) Other long term care pharmacist (current) drug therapy; Translations: [OTH SCREEN CLEANER CURRENT DRUG THERAPY] Onset: 01-09-2022 Episodic Other injuries and conditions due to external causes (4 sources) Unspecified injury of right lower leg, initial encounter; Translations: [UNS INJURY RT LOWER LEG INITIAL ENC] Onset: 01-07-2022 Episodic Other lower respiratory disease (4 sources) Shortness of breath; Translations: [SHORTNESS OF BREATH] Onset: 11-22-2021 Episodic Other lower respiratory disease (1 source) Personal history of pneumonia (recurrent); Translations: [PERSONAL HX OF PNEUMONIA RECURRENT] Onset: 11-23-2021 Episodic Other lower respiratory disease (1 source) Dyspnea, unspecified; Translations: [DYSPNEA UNSPECIFIED] Onset: 10-27-2021 Episodic Other nutritional; endocrine; and metabolic disorders (1 source) Abnormal weight gain; Translations: [ABNORMAL WEIGHT GAIN] Onset: 10-27-2021 Episodic Residual codes; unclassified (1 source) Acquired absence of both cervix and uterus; Translations: [ACQUIRED ABSENCE BOTH CERVIX AND UTERUS] Onset: 01-09-2022 Episodic Respiratory failure; insufficiency; arrest (adult) (1 source) Acute respiratory failure with hypoxia; Translations: [ACUTE RESPIRATORY FAIL W/HYPOXIA] Onset: 11-24-2021 Episodic Screening and history of mental health and substance abuse codes (1 source) Personal history of nicotine dependence; Translations: [PERSONAL HISTORY OF NICOTINE DEPEND] Onset: 01-09-2022 Episodic Unclassified (2 sources) Finding of sensation of bladder 02-03-2021 Unclassified (1 source) LOW BACK PAIN, UNSPECIFIED; Translations: [LOW BACK PAIN, UNSPECIFIED] Onset: 05-11-2022 Results Test Name Value Interpretation Reference Range Facil ity Insurance Correspondence Off iceabena 04-19-2023 Insurance Correspondence Office [id number] Normal [facility] Discharge Instructionson Discharge Instructions [id number] Normal [facility] Outside Recordson 04-14-2023 Outside Records [id number] Normal [facility] BMPon 04-13-2023 Anion gap [Moles/Vol] 14 mmol/L Normal 6-16 [facility] Comment on above: Performed By: #### 2 [id number], [id number] #### [facility] [address] [place] [address] Calcium [Mass/Vol] 9.1 mg/dL Normal 8.9-11.1 [facility] Comment on above: Performed By: #### 2 [id number], [id number], [id number] #### [facility] [address] [place] [address] Chloride [Moles/Vol] 114 mmol/L High 101-111 [facility] Comment on above: Performed By: #### 2 [id number], [id number], [id number] #### [facility] [address] [place] [address] CO2 [Moles/Vol] 20 mmol/L Low 21-31 [facility] Comment on above: Performed By: #### 2 [id number], [id number], [id number] #### [facility] [address] [place] [address] Creatinine [Mass/Vol] 1.2 mg/dL Normal 0.5-1.3 [facility] Comment on above: Performed By: #### 2 [id number], [id number], [id number] #### [facility] [address] [place] [address] Glucose [Mass/Vol] 96 mg/dL Normal 55-199 [facility] Comment on above: Result Comment: If t his glucose result represents a fasting glucose, interpretation should refer to the following reference range: 55-99 mg/dL Performed By: #### 2 [id number], [id number], [id number] #### [facility] [address] [place] [address] Potassium [Moles/Vol] 3.9 mmol/L Normal 3.5-5.3 [facility] Comment on above: Performed By: #### 2 [id number], [id number], [id number] #### [facility] [address] [place] [address] Sodium [Moles/Vol] 144 mmol/L Normal 135-145 [facility] Comment on above: Performed By: #### 2 [id number], [id number], [id number] #### [facility] [address] [place] [address] Urea nitrogen [Mass/Vol] 29 mg/dL High 5-21 [facility] Comment on above: Performed By: #### 2 [id number], [id number], [id number] #### [facility] [address] [place] [address] Urea nitrogen/Creatinine [Mass ratio] 24 No Units High 10-20 [facility] Comment on above: Performed By: #### 2 [id number], [id number], [id number] #### [facility] [address] [place] [address] CHEMISTRYOrdered By: SYSTEM SYSTEM on 04-13-2023 Anion gap [Moles/Vol] 14 mmol/L Normal 6 - 16 mEq/L F [facility] Remisol Calcium [Mass/Vol] 9.1 mg/dL Normal 8.9 - 11. 1 mg/dL [facility] Remisol Chloride [Moles/Vol] 114 mmol/L High 101 - 1 11 mmol/L [facility] Cholesterol [Mass/Vol] 164 mg/dL Normal 120 - 200 mg/ dL [facility] Cholesterol in HDL [Mass/Vol] 62 mg/dL Invalid Interpretation Code [facility] Comment on above: Interpretive Data: H DL > or equal to 60 mg/dL: Low cardiovascular risk HDL < 40 mg/dL : High cardiovascular risk Cholesterol in LDL [Mass/Vol] 73 mg/dL Normal <=129mg/dL [facility] Remisol Cholesterol in VLDL [Mass/Vol] 21 mg/dL Normal 7 - 40 mg/dL [facility] CO2 [Moles/Vol] 20 mmol/L Low 21 - 31 mmol/L [facility] Creatinine [Mass/Vol] 1.2 mg/dL Normal 0.5 - 1.3 mg/d L [facility] GFR/1.73 sq M.predicted among non-blacks MDRD (S/P/Bld) [Vol rate/Area] 47 mL/min/1.73 m2 Low >=59mL/min/1.73 m2 F [facility] Chem S Comment on above: Interpretive Data: C hronic kidney disease could be indicated at eGFR's of less than 60 mL/min/1.73m2. Kidney failure is indicated at less than 15 mL/min/1.73m2. Glucose [Mass/Vol] 96 mg/dL Normal 55 - 199 mg/dL [facility] Comment on above: Interpretive Data: I f this glucose result represents a fasting glucose, interpretation should refer to the following reference range: 55-99 mg/dL Potassium [Moles/Vol] 3.9 mmol/L Normal 3.5 - 5.3 mmol /L FT Remisol Sodium [Moles/Vol] 144 mmol/L Normal 135 - 145 mmol/L FT Remisol Triglyceride [Mass/Vol] 106 mg/dL Normal <=149mg/dL F [facility] Remisol Urea nitrogen [Mass/Vol] 29 mg/dL High 5 - 21 mg/d L FT Remisol Urea nitrogen/Creatinine [Mass ratio] 24 mg/mg High 10 - 20 FT Remisol Discharge Note-Nursingon Discharge Note-Nursing АННАAARON :1945 Visit Date:04/12/2023 Inpatient Discharge Instructions Your Care Team Admitting Physician - Tessie BERNAL, Efrain Consulting Physician - Ehsan Blair MD Reason for Your Visit AMS Your Diagnosis AMS (altered mental status) Elevated serum creatinine HTN (hypertension) Anxiety and depression Peripheral neuropathy Chronic GERD OAB (overactive bladder) Obesity On deep vein thrombosis (DVT) prophylaxis Altered mental status Depression, unspecified Tests Performed Alcohol Level Automated Diff Basic Metabolic Panel Capillary Glucose POC CBC w/ Auto Diff Drug Screen Urine eGFR Folate Level Hepatic Function Panel HgbA1c Lipid Panel Magnesium Level PT & PTT Troponin 0 Hr. TSH With T4fr Reflex UA With Cult Reflex Vitamin B12 Level Cervical Spine CT w/o Contrast CT Head or Brain w/o Contrast MRI Brain w/o Contrast -- Results Pending -- XR Chest Single View Please visit your patient portal for your results or contact your primary care physician. This Is Your Medications List acetaminophen (acetaminophen 325 mg Tab) acetaminophen-oxycodone (acetaminophen-oxycodone 325 mg-2.5 mg oral tablet) amlodipine (amLODIPine 2.5 mg Tab) aspirin (aspirin 81 mg Oral EC Tab) baclofen (baclofen 10 mg Tab) gabapentin (gabapentin 300 mg Cap) melatonin meloxicam (meloxicam 15 mg Tab) multivitamin with minerals (Ocuvite) nortriptyline (nortriptyline 25 mg Cap) omeprazole (omeprazole 40 mg Cap-DR) solifenacin (Vesicare 10 mg Tab) [Image Removed: STOP]Stop taking these medications busPIRone (busPIRone 10 mg Tab) calcium citrate (calcium (as calcium citrate) 200 mg oral tablet) glucosamine oxymetazoline nasal (Afrin 0.05% Driver) Procedure History Cystourethroscopy with dilation of urethral stricture (06/16/2016), Appendectomy, Biopsy of breast, Hysterectomy. Discharge Vitals Temperature (Axillary) 36.6 ?C Heart Rate (Monitored) 89 Respiratory Rate 19 Respiratory Rate 19 Blood Pressure 127/68 Height 165.10 cm Weight 92.6 kg BMI 34.05 What to do next Instructions From Your Doctor Event Name Event Result Discharge Activity Ambulate as tolerated, Activity as tolerated Discharge Restrictions No driving Discharge Diet(s) Regular, Fat Modified- Low cholesterol, Low Sodium- 2000 mg Pending Diagnostic Test Results None Pharmacy Information [facility] Discharge Instructions Follow up appts as writtenNo driving until cleared by PCP or neuroTake all medications as ordered, monitor prn medication use Previously Scheduled Follow-Up Appointments Sunday 1:00 PM EST With: MIAH ROE, BRENDA Poole Where: [facility] Normal [facility] ED Note-Physicianon 04-13-20 ED Note-Physician Basic Information Time Seen: Ezio VILLAGRAN Abran MorleyCarlos 04/12/2023 12:16 Chief Complaint AMS History of Present Illness 78-year-old female to the emergency department with chief complaint of altered mental status. EMS reports patient was found outside seated on her porch by someone walking her dog and was not dressed appropriately. That person called 911 and prompted their evaluation. Her son reports she is not in her baseline. Patient reports she recently had a urinary tract infection diagnosed at [facility] for which she is on antibiotics. She has no other complaints at this time. She denies any falls or injuries. Review of Systems A 10 point review of systems is negative except as noted above. Medical and Surgical History: Reviewed and noted Social history: Lives at home Tobacco: Denies Physical Exam Vitals & Measurements T: 36.3 ?C(Axillary) HR: 95(Monitored) RR: 18 BP: 123/70 SpO2: 97% HT: 165.10 cm WT: 92.8 kg BMI: 34.05 VITALS: I have reviewed the triage vital signs. GENERAL: Well developed, well appearing adult female in no acute distress. NEURO: Alert and oriented x 2. Significant situational confusion. Moves all extremities. Face is symmetric and expressive. No focal neurologic deficits. EYES: PERRL. No scleral icterus or conjunctival injection. No discharge. HENT: Normocephalic, atraumatic. Hearing is grossly intact. Nares grossly patent and without discharge. Mucous membranes moist. NECK: No JVD. Patient moves neck without restriction. CARDIO: Rhythm regular. Normal rate. No murmur, rub, or gallop. Pulses equal bilaterally in the upper and lower extremity. No lower extremity edema. PULM: Lungs clear to auscultation in all chávez. No wheezes, rales, or rhonchi. No conversational dyspnea. No splinting, stridor, or accessory muscle use. GI/: Abdomen is soft and non-tender. Normoactive bowel sounds. EXTREMITIES: Symmetric muscle bulk. No joint swelling. No clubbing, cyanosis, or deformity. SKIN: Warm and dry. Normal turgor. No rash or lesions appreciated. PSYCH: Mood, affect, and interaction is appropriate to the setting. Medical Decision Making 78-year-old female to the emergency department chief complaint of altered mental status. Vital stable, the patient is afebrile. Basic labs ordered. Will obtain a CT head and cervical spine given the uncertainty and events and the patient's confusion. Patient agrees with this plan. Lab work reviewed and noted. No significant abnormalities. Her urinalysis does not show evidence of infection at this time. CT head is negative. CT cervical spine is negative. Chest x-ray without acute findings. Patient remains significantly situationally confused. She does not have medical decision-making capacity. I discussed with her daughter of the patient. Patient does not want to stay. Daughter reports he is not safe for home. Given the patient does not have capacity we will admit her to the hospital for further evaluation. Assessment/Plan 1. AMS (altered mental status) (R41.82: Altered mental status, unspecified) 2. Elevated serum creatinine (R79.89: Other specified abnormal findings of blood chemistry) 3. HTN (hypertension) (I10: Essential (primary) hypertension) 4. Anxiety and depression (F41.9: Anxiety disorder, unspecified) 5. Peripheral neuropathy (G62.9: Polyneuropathy, unspecified) 6. Chronic GERD (K21.9: Gastro-esophageal reflux disease without esophagitis) 7. OAB (overactive bladder) (N32.81: Overactive bladder) 8. Obesity (E66.9: Obesity, unspecified) 9. On deep vein thrombosis (DVT) prophylaxis (Z79.899: Other fdc (current) drug therapy) Depression, unspecified (F32.A: Depression, unspecified) Orders: Automated Diff Basic Metabolic Panel CBC w/ Auto Diff Continuous Pulse Oximetry CT Head or Brain w/o Contrast CT Spine Cervical w/o Contrast Drug Screen Urine ECG 12 Lead Adult ED Cardiac Monitoring ED Physician consult Hospitalist for continued care eGFR Ethanol Level Folate Level Hepatic Function Panel Oxygen Therapy PT & PTT Routine Capillary Glucose POC Troponin 0 Hr. UA With Cult Reflex XR Chest Single View Medications Administered Given Sodium Chloride 0.9% IV Veronica 500 mL 500 mL, 500 mL, IV [id number] units/mLInjection [F], 5000 unit(s), SubCutaneous oxym0.05Spr [F], 2 spray(s), Nasal Disposition Plan Patient Discharge Condition Stable Discharge Disposition Admitted Discharge Prescription List Prescriptions No active prescription medications Follow-up No qualifying data available Problem List/Past Medical History Ongoing Chronic cystitis Cigarette smoker Dorsalgia OAB (overactive bladder) Urethral stricture Historical Abdominal tenderness Acute UTI Dysuria Feeling of incomplete bladder emptying Frequency of urination Nocturia Other post-traumatic urethral stricture, female Urinary urgency Weak urine stream Procedure/Surgical History Cystourethroscopy with dilation of uret (more content not included)... Normal [facility] Comment on above: Result Comment: Elec tronically Signed By: Abran Holguin DO\.br\Date and Time Signed: 04/12/23 22:13 EST Inpatient Clinical Summaryon 04-13-2023 Inpatient Clinical Summary [address] [address] Clinical Summary Person Information: Name: AARON JJ Age: 78 Years : 1945 Sex: Female PCP: JEREMIAH REED MD Marital Status: Race: White Ethnicity: Non- or Language: German Visit Id: Visit Reason: Altered mental status; AMS Speciality: Acuity: Enc Type: Observation Med Service: Medical Arrival: 04/12/2023 12:15:14 Discharge: Dispo Type: Admitted as IP to this Hosp Address: [address] [place] [address] [address] [place] [id number] Provider Notes: Diagnosis: 1:AMS (altered mental status); 2:Elevated serum creatinine; 3:HTN (hypertension); 4:Anxiety and depression; 5:Peripheral neuropathy; 6:Chronic GERD; 7:OAB (overactive bladder); 8:Obesity; 9:On deep vein thrombosis (DVT) prophylaxis; Depression, unspecified Problems Active OAB (overactive bladder) Cigarette smoker Chronic cystitis Dorsalgia Urethral stricture Smoking Status: Former Smoker Functional Status: Sensory Deficits: History of Falls: Mobility Assistance Prior to Admission: ADLs: Moderate assistance Current Level of Assistance for Self-Care/Mobility: Cognitive Status: Not oriented to time Allergies No Known Allergies Measurements: Height: 165.10 cm Weight: 92.6 kg Blood Pressure: 125 mmHg / 78 mmHg BMI: 34.05 kg/m2 Procedures No Procedures Documented Immunizations No Immunizations Documented This Visit Final Med List: acetaminophen (acetaminophen 325 mg Tab) 2 Tablets By Mouth every 6 hours as needed Pain. acetaminophen-oxycodone (acetaminophen-oxycodone 325 mg-2.5 mg oral tablet) 1 Tablets By Mouth every 12 hours as needed as needed for pain. amlodipine (amLODIPine 2.5 mg Tab) 2 Tablets By Mouth every day. aspirin (aspirin 81 mg Oral EC Tab) 1 Tablets By Mouth every day. baclofen (baclofen 10 mg Tab) 0.5 Tablets By Mouth 3 times a day. gabapentin (gabapentin 300 mg Cap) 1 Capsules By Mouth 3 times a day. melatonin once a day (at bedtime). meloxicam (meloxicam 15 mg Tab) 1 Tablets By Mouth every day. multivitamin with minerals (Ocuvite) By Mouth every day. nortriptyline (nortriptyline 25 mg Cap) 1 Capsules By Mouth at bedtime. omeprazole (omeprazole 40 mg Cap-DR) 1 Capsules By Mouth every day. solifenacin (Vesicare 10 mg Tab) 1 Tablets By Mouth every day for 30 Days. Refills: 11. Care Team Members: Attending Physician: Efrain Kurtz MD Consulting Physician: Ehsan Blair MD Referring Physician: Follow up: With: Address: When: Ehsan Blair MD [place] [phone] Within 1 to 2 weeks Comments: This office is closed on Fridays. Please call the office on Sunday April 16, 2023 for a follow up appiontment. Thank you. With: Address: When: JEREMIAH DEREK [address] [place], [place] [id number] [facility] () Within 2 to 4 days Comments: Call for followup appointment With: Address: When: [facility] Comments: Call for followup appointment for anxiety/depression care. Type Location Start [place] [facility] Office Visit [facility] 06/05/2023 1:00 PM 06/05/2023 1:15 PM Confirmed Patient Education Information: Confusion aspirin Normal [facility] Inpatient Patient Summaryon 04-13-2023 Inpatient Patient Summary [place] [id number] Patient Discharge Instructions PERSON INFORMATION Name: AARON JJ Date of : 1945 Current Date: 04/13/2023 12:14:32 PHYSICIANS Admitting Physician: Efrain Kurtz MD Primary Care Physician: JEREMIAH REED MD Comment: Discharge Diagnosis: 1:AMS (altered mental status); 2:Elevated serum creatinine; 3:HTN (hypertension); 4:Anxiety and depression; 5:Peripheral neuropathy; 6:Chronic GERD; 7:OAB (overactive bladder); 8:Obesity; 9:On deep vein thrombosis (DVT) prophylaxis; Depression, unspecified Condition at Discharge: Stable AARON JJ has been given the following list of follow-up instructions, prescriptions, and patient education materials: PATIENT FOLLOW-UP INFORMATION Diet: Regular, Fat Modified- Low cholesterol, Low Sodium- 2000 mg Discharge Activity: Ambulate as tolerated, Activity as tolerated Discharge Restrictions: No driving Wound Care Instructions: Remove Your Dressing In Days Call Your Doctor For: IF UNABLE TO CONTACT YOUR PHYSICIAN AND YOU FEEL IT IS AN EMERGENCY, GO TO THE NEAREST EMERGENCY ROOM OR CALL 911 Home Treatment: Devices/Equipment: None Special Services: Additional Instructions: Follow up appts as written No driving until cleared by PCP or neuro Take all medications as ordered, monitor prn medication use Primary Care Physician to provide the following pending test results: None Follow up: With: Address: When: Johnnie BERNAL, ALPHONSE Choi [address] [address] Within 1 to 2 weeks Comments: This office is closed on Fridays. Please call the office on Sunday April 16, 2023 for a follow up appiontment. Thank you. With: Address: When: JEREMIAH REED [address] [place] [phone] Business (1) Within 2 to 4 days Comments: Call for followup appointment With: Address: When: [facility] Comments: Call for followup appointment for anxiety/depression care. In the event that this physician does not participate in your insurance network, please consult with your insurance company to find a nearby participating provider. Type Location Start [facility] Office Visit [facility] 06/05/2023 1:00 PM 06/05/2023 1:15 PM Confirmed Comment: АННА Zhang CYNTHIA J, have received the attached patient education materials/instructions and have verbalized understanding: Patient Signature Date Clinican/Nurse Signature Date HERE ARE THE MEDICATION CHANGES THAT OCCURRED DURING YOUR HOSPITAL STAY New Medications Other Medications acetaminophen (acetaminophen 325 mg Tab) 2 Tablets By Mouth every 6 hours as needed Pain. Last Dose: Next Dose: aspirin (aspirin 81 mg Oral EC Tab) 1 Tablets By Mouth every day. Last Dose: Next Dose: Medications to Continue Taking That Have Changed Other Medications START: baclofen (baclofen 10 mg Tab) 0.5 Tablets By Mouth 3 times a day. Last Dose: Next Dose: STOP: baclofen (baclofen 10 mg Tab) By Mouth 3 times a day. START: gabapentin (gabapentin 300 mg Cap) 1 Capsules By Mouth 3 times a day. Last Dose: Next Dose: STOP: gabapentin (gabapentin 600 mg Tab) 1 Tablets By Mouth 3 times a day. Medications to Continue with No Changes Other Medications acetaminophen-oxycodone (acetaminophen-oxycodone 325 mg-2.5 mg oral tablet) 1 Tablets By Mouth every 12 hours as needed as needed for pain. Last Dose: Next Dose: amlodipine (amLODIPine 2.5 mg Tab) 2 Tablets By Mouth every day. Last Dose: Next Dose: melatonin once a day (at bedtime). Last Dose: Next Dose: meloxicam (meloxicam 15 mg Tab) 1 Tablets By Mouth every day. Last Dose: Next Dose: multivitamin with minerals (Ocuvite) By Mouth every day. Last Dose: Next Dose: nortriptyline (nortriptyline 25 mg Cap) 1 Capsules By Mouth at bedtime. Last Dose: Next Dose: omeprazole (omeprazole 40 mg Cap-DR) 1 Capsules By Mouth every day. Last Dose: Next Dose: solifenacin (Vesicare 10 mg Tab) 1 Tablets By Mouth every day for 30 Days. Refills: 11. Last Dose: Next Dose: No Longer Take the Following Medications busPIRone (busPIRone 10 mg Tab) By Mouth 2 times a day. calcium citrate (calcium (as calcium citrate) 200 mg oral tablet) By Mouth 2 adán (more content not included)... [facility] Interdisciplinary Note - Danie e Manageron 04-13-2023 Interdisciplinary Note - Danie e Sieve Repairer Pt is awake and alert in bed, previously rounded with Radha PENNY. Pending Neurology to see and pending MRI. Pending therapy evals, Observation status reviewed [facility] form reviewed, signed by pt and original provided. PT is independent from home, family at bedside and will transport at [place], Declines any concerns or anticipate DC needs. . PCP verified and insurance information reviewed and DME discussed. Contact information provided and white board updated. CRM returned to pt room to discuss DC plans. PT= HH and pt is agreeable to HH at [place], prefers to use [facility] as she has used in past, referral to resource center, anticipate DC home today. 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 [facility] Comment on above: Result Comment: Elec tronically Signed By: Thu ALVARES, Sallie\.br\Date and Time Signed: 04/13/23 12:17 EST Interdisciplinary Note - Ashly n 04-13-2023 Interdisciplinary Note - OT OT [facility] six clicks score 21/24 = no further OT needs. Patient requires Dist sup w/ transfers. completes Adls w/ dist sup after set up. Dc inpatient OT services as pt appears close to baseline status and has all bathroom dme already in place at home. [facility] Interdisciplinary Note - Soc ial Workeron 04-13-2023 Interdisciplinary Note - Soc ial Worker This SW met with patient today to discuss advance directives. Patient was interested in the information and going over this with her son. Due to patient being ready for d/c, this SW provided her with a packet to look over with him and educated her on scheduling an OP appointment with this SW to complete them when she is ready to do so. SW also questioned patient's medications in relation to her positive tox screen for benzos. Patient explained that the brain doctor told her that it was probably due to her gabapentin. She denied use of any substances. SW will remain available. [facility] Lipid Panelon 04-13-2023 Cholesterol [Mass/Vol] 164 mg/dL Normal 120-[address] [facility] Comment on above: Performed By: #### 2 [id number], [id number], [id number] #### [facility] [address] [place] [address] Cholesterol in HDL [Mass/Vol] 62 mg/dL Invalid Interpretation Code [facility] Comment on above: Result Comment: HDL > or equal to 60 mg/dL: Low cardiovascular risk HDL < 40 mg/dL : High cardiovascular risk Performed By: #### 2 [id number], [id number], [id number] #### [facility] [address] [place] [address] Cholesterol in LDL [Mass/Vol] 73 mg/dL Normal <=129 [facility] Comment on above: Performed By: #### 2 [id number], [id number], [id number] #### [facility] [address] [place] [address] Cholesterol in VLDL [Mass/Vol] 21 mg/dL Normal 7-40 [facility] Comment on above: Performed By: #### 2 [id number], [id number], [id number] #### [facility] [address] [place] [address] Triglyceride [Mass/Vol] 106 mg/dL Normal <=149 F [facility] Comment on above: Performed By: #### 2 [id number], [id number], [id number] #### [facility] [address] [place] [address] MRI Brain w/o Contraston MRI Brain w/o Contrast Exam Date/Time: 04/12/2023 20:01 EST Reason for Exam: Altered mental status Report IMPRESSION: NO ACUTE INTRACRANIAL PROCESS IDENTIFIED. CHRONIC, ATROPHIC, AND INVOLUTIONAL CHANGES, NOTED. EXAM: MRI Brain w/o Contrast DATE: 04/12/2023 6:53 PM CLINICAL HISTORY: Altered mental status. COMPARISON: Head CT from earlier 04/12/2023. TECHNIQUE: Multiplanar MR imaging of the head was performed without contrast. FINDINGS: Acute Change: There is no evidence of restricted diffusion to suggest an acute infarct. Hemorrhage: No evidence of intracranial hemorrhage. Mass Lesion/ Mass Effect: No evidence of an intracranial mass or extra-axial fluid collection. No significant mass effect. Chronic Change: Mild predominantly supratentorial white matter changes most consistent with chronic small vessel ischemic disease, with a few scattered very small chronic basal ganglia, burnham radiata and cerebellar infarcts. Parenchyma: Mild volume loss for age. The brain parenchyma is otherwise within normal limits of signal intensity and morphology. Ventricles: Normal caliber and morphology. Skull Base: Hypothalamic and pituitary region are grossly normal. Craniocervical junction is normal. No significant marrow replacement process. Vasculature: Major intracranial arterial structures, and dural venous sinuses show typical flow void, suggesting patency. Other: Paranasal sinuses and mastoid air cells are clear. The orbits are unremarkable. The extracranial soft tissues are unremarkable. Report Ordering Provider: Radha WALLS FINAL REPORT Dictated: 04/13/2023 12:03 pm Jae Barry MD Signed (Electronic Signature): 04/13/2023 12:03 pm Signed by: Jae Barry MD Transcribed by: LESLEY Technologist: MAXI Technical Comments None Normal [facility] Message from Medicareon 120 Message from Medicare [id number] Normal [facility] Monitor Recordon 04-13-2023 Monitor Record [id number] Normal [facility] Monitor Record [id number] Normal [facility] Monitor Record [id number]#1.00TIFF Normal [facility] eGFRon 04-13-2023 GFR/1.73 sq M.predicted dann g non-blacks MDRD (S/P/Bld) [Vol rate/Area] 47 mL/min/1.73 m2 Low >=59 [facility] Comment on above: Order Comment: Order added by Discern Expert. Result Comment: Hse Specialist sally kidney disease could be indicated at eGFR's of less than 60 mL/min/1.73m2. Kidney failure is indicated at less than 15 mL/min/1.73m2. Performed By: #### 2 [id number], [id number], [id number] #### [facility] [address] [place] [address] Auto Diffon 04-12-2023 Basophils/100 WBC (Bld) 0.4 % Normal 0.0-2.0 F [facility] Comment on above: Order Comment: Order Added by Discern Expert. Performed By: #### 1 [id number], [id number], 18805558, 8410134, 58886569, [id number], 49329870, 8198164, 4205723, 3811875, 2230487, 2613681 ####[facility] [address] [place] [address] Basophils/Leukocytes Auto (B ld) [Pure # fraction] 0.1 E9/L Normal 0.0-0.2 [place] Comment on above: Order Comment: Order Added by Discern Expert. Performed By: #### 1 [id number], [id number], [id number], 1491224, 28792182, [id number], 07361775, 8418823, 4938321, 5867613, 1024856, 5716057 ####[facility] [address] [place] [address] Eosinophils/100 WBC (Bld) 0.1 % Normal 0.0-8.0 [facility] Comment on above: Order Comment: Order Added by Discern Expert. Performed By: #### 1 [id number], 9776500, 03358414, 4445834, 63569505, [id number], 34382656, 7764241, 2482097, 6191747, 7772992, 6206665 ####[facility] [address] [place] [address] Eosinophils/Leukocytes Auto (Bld) [Pure # fraction] 0.0 E9/L Normal 0.0-0.5 [facility] Comment on above: Order Comment: Order Added by Discern Expert. Performed By: #### 1 [id number], 6561237, 60372730, 7795113, 60907839, 683647716, 86820976, 0359944, 8895780, 4495334, 9118228, 3644268 ####[facility] [address] [place] [address] Lymphocytes/100 WBC (Bld) 9.7 % Low 14.0-50.0 [facility] Comment on above: Order Comment: Order Added by Discern Expert. Performed By: #### 1 [id number], 7296905, 07424246, 1598546, 45721535, [id number], 52521171, 4917881, 9125258, 4143655, 8865466, 1490012 ####[facility] [address] [place] [address] Lymphocytes/Leukocytes Auto (Bld) [Pure # fraction] 1.5 E9/L Normal 1.0-4.0 [facility] Comment on above: Order Comment: Order Added by Discern Expert. Performed By: #### 1 [id number], 8294773, 06989586, 7109608, 62183512, 190424391, 25324500, 8161335, 2892456, 3731963, 5459707, 7798968 ####[facility] [address] [place] [address] Monocytes/100 WBC (Bld) 7.8 % Normal 4.0-14.0 F [facility] Comment on above: Order Comment: Order Added by Discern Expert. Performed By: #### 1 [id number], 1582046, 98325855, 0128621, 11075245, 708137018, 46946922, 9760253, 7376518, 2162214, 8777048, 5529358 ####[facility] [address] [place] [address] Monocytes/Leukocytes Auto (B ld) [Pure # fraction] 1.2 E9/L High 0.2-1.0 [place] Comment on above: Order Comment: Order Added by Discern Expert. Performed By: #### 1 [id number], 9916519, 92751853, 7620113, 14723585, 276368557, 00349615, 9444634, 5296764, 4172434, 8524969, 0743084 ####[facility] [address] [place] [address] Neutrophils/100 WBC (Bld) 82.0 % High 36.0-75.0 [facility] Comment on above: Order Comment: Order Added by Discern Expert. Performed By: #### 1 6109997, 5096843, 30407576, 3990048, 95400643, 304349860, 07030215, 8729830, 1026994, 1932026, 9447866, 3044640 ####[facility] [address] [place] [address] Neutrophils/Leukocytes Auto (Bld) [Pure # fraction] 12.4 E9/L High 2.0-7.5 [place] Comment on above: Order Comment: Order Added by Discern Expert. Performed By: #### 1 7524800, 9447074, 49880009, 3227846, 14051410, 877377002, 90280034, 7953366, 4958022, 8628459, 8209241, 1222405 ####[facility] [address] [place] [address] BMPon 04-12-2023 Creatinine [Mass/Vol] 1.8 mg/dL High 0.5-1.3 [facility] Comment on above: Performed By: #### 1 9314647, 8958267, 25656027, 0677763, 79848373, 694899825, 45758137, 2959610, 4670716, 3468617, 3032547, 2024035 ####[facility] [address] [place] [address] Urea nitrogen [Mass/Vol] 39 mg/dL High 5-21 [facility] Comment on above: Performed By: #### 1 5955859, 6178747, 62735007, 2248735, 24749003, 135782680, 66000667, 2812112, 5371179, 5898170, 3956645, 3891120 ####[facility] [address] [place] [address] Urea nitrogen/Creatinine [Mass ratio] 22 No Units High 10-20 [facility] Comment on above: Performed By: #### 1 2083807, 7008599, 40461084, 8259329, 66064433, 922717879, 82282077, 1614946, 5327784, 6862719, 2866218, 0594704 ####[facility] [address] [place] [address] Anion gap [Moles/Vol] 16 mmol/L Normal 6-16 [facility] Comment on above: Performed By: #### 1 2331206, 5615725, 08808823, 9950859, 41112664, 780642411, 00904517, 5583055, 8341930, 9535390, 1938804, 3685487 ####[facility] [address] [place] [address] Calcium [Mass/Vol] 10.0 mg/dL Normal 8.9-11.1 [facility] Comment on above: Performed By: #### 1 0948891, 3947449, 59810747, 5233186, 06072195, 972879252, 90468613, 1473566, 2925158, 1298430, 4481629, 8224342 ####[facility] [address] [place] [address] Chloride [Moles/Vol] 109 mmol/L Normal 101-111 [facility] Comment on above: Performed By: #### 1 2311089, 2079556, 13217284, 6944133, 19691601, 319972105, 09018038, 5245949, 2664435, 5648414, 4983981, 1528696 ####[facility] [address] [place] [address] CO2 [Moles/Vol] 23 mmol/L Normal 21-31 [facility] Comment on above: Performed By: #### 1 2632630, 5098680, 22479407, 8512316, 33079303, 053387569, 14828801, 5403078, 2413462, 2705415, 0106272, 8511182 ####[facility] [address] [place] [address] Glucose [Mass/Vol] 89 mg/dL Normal 55-199 [facility] Comment on above: Result Comment: If t his glucose result represents a fasting glucose, interpretation should refer to the following reference range: 55-99 mg/dL Performed By: #### 1 3545386, 3002321, 96355101, 7587734, 62290374, 096430930, 34013153, 1585131, 4724252, 6180111, 5521405, 6018879 ####[facility] [address] [place] [address] Potassium [Moles/Vol] 4.3 mmol/L Normal 3.5-5.3 [facility] Comment on above: Performed By: #### 1 9140649, 9170014, 90183578, 2806763, 92530869, 072784615, 47671912, 6283238, 0422623, 9129976, 5517918, 3231604 ####[facility] [address] [place] [address] Sodium [Moles/Vol] 144 mmol/L Normal 135-145 [facility] Comment on above: Performed By: #### 1 5159452, 8810959, 60850796, 5094764, 91674263, 630990176, 81395811, 7530230, 1984080, 9019306, 4047728, 7348632 ####[facility] [address] [place] [address] CBC w/ Auto Diffon 3 Erythrocyte distribution wid th (RBC) [Ratio] 15.3 % High 10.9-14.2 [place] Comment on above: Performed By: #### 1 2020659, 1920551, 33530273, 6362199, 78608853, 691643689, 08498170, 8714397, 9147201, 6861905, 2700993, 3191398 #### [facility] [address] [place] [address] Hematocrit (Bld) [Volume fraction] 44.4 % Normal 34.0-46.0 [place] Comment on above: Performed By: #### 1 2720633, 0385119, 45541123, 7757594, 16474179, 767536236, 76826545, 5503854, 2694554, 6157615, 4970066, 5160345 #### [facility] [address] [place] [address] Hemoglobin (Bld) [Mass/Vol] 14.0 g/dL Normal 12.0-16. 0 [facility] Comment on above: Performed By: #### 1 7919329, 7512045, 85206289, 9638983, 58545034, 095129782, 32457494, 9454836, 6853426, 3278667, 8963593, 0051774 #### [facility] [address] [place] [address] MCH (RBC) [Entitic mass] 28.5 pg Normal 27.0-34.0 [facility] Comment on above: Performed By: #### 1 0730598, 3673304, 84220742, 6047073, 43776356, 557261885, 42398795, 2501946, 6588916, 7112839, 5624497, 8743142 #### [facility] [address] [place] [address] MCHC (RBC) [Mass/Vol] 31.6 g/dL Normal 31.4-36.0 [facility] Comment on above: Performed By: #### 1 2588217, 8468759, 82032385, 6418947, 32152096, 735469952, 64487829, 6256541, 5706045, 2427566, 1829610, 2873015 #### [facility] [address] [place] [address] MCV (RBC) [Entitic vol] 89.9 fL Normal 80.0-100.0 [facility] Comment on above: Performed By: #### 1 4433466, 8049296, 07415786, 3518942, 85596863, 082611429, 14610435, 3438545, 9461338, 2721141, 7888176, 1718382 #### [facility] [address] [place] [address] Platelet mean volume (Bld) [Entitic vol] 9.8 fL Normal 6.4-10.8 [place] Comment on above: Performed By: #### 1 4751431, 8722288, 79801259, 5953892, 29826076, 961828212, 39259264, 0812914, 3620401, 7666326, 1297448, 7572681 #### [facility] [address] [place] [address] Platelets (Bld) [#/Vol] 285.0 E9/L Normal 150.0-500.0 [facility] Comment on above: Performed By: #### 1 6673961, 1819302, 56841250, 4900966, 91560436, 628770451, 79000539, 0874890, 4707776, 4176580, 6367727, 0212610 #### [facility] [address] [place] [address] RBC (Bld) [#/Vol] 4.9 E12/L Normal 4.3-5.9 [facility] Comment on above: Performed By: #### 1 3721085, 4130215, 37602289, 4350599, 41546947, 083299246, 11596024, 5119486, 3001750, 5513806, 9501232, 0096146 #### [facility] [address] [place] [address] WBC corrected for nucl RBC A uto (Bld) [#/Vol] 15.1 E9/L High 4.0-11.0 [facility] Comment on above: Performed By: #### 1 0580019, 7616443, 67797482, 9534967, 11311812, 670067409, 19370138, 5874685, 9163750, 5032248, 2559774, 1288456 #### [facility] [address] [place] [address] CHEMISTRYOrdered By: SYSTEM SYSTEM on 04-12-2023 Amphetamines Screen method > 1000 ng/mL Ql (U) Negative 7 (04/12/23 2:32 PM) Normal Negative [facility] Comment on above: Interpretive Data: N egative Cutoff: <1000 ng/mL Barbiturates Screen Ql (U) Negative 8 (04/12/23 2:32 PM) Normal Negative [facility] Comment on above: Interpretive Data: N egative Cutoff: <200 ng/mL Benzodiazepines Ql (U) Positive 1, 2 *ABN* (04/12/23 2:32 PM) Invalid Interpretation Code Negative [facility] Comment on above: Result Comment: Crit ical Result [id number]:POS Called to ARBAN HOLGUIN AT ER by URSULA LOZANO And Read Back For Confirmation at: 04/12/2023 15:35:32\Unconfirmed by alternate method\Results verified by repeat analysis\No confirmation requested by Physican Interpretive Data: N egative Cutoff: <200 ng/mL Cocaine Ql (U) Negative 3 (04/12/23 2:32 PM) Normal Negative [facility] Comment on above: Interpretive Data: N egative Cutoff: <300 ng/mL Opiates Screen Ql (U) Negative 4 (04/12/23 2:32 PM) Normal Negative [facility] Comment on above: Interpretive Data: N egative Cutoff: <300 ng/mL Phencyclidine Screen method >25 ng/mL Ql (U) Negative 5 (04/12/23 2:32 PM) Normal Negative [facility] Comment on above: Interpretive Data: N egative Cutoff: <25 ng/mL These drug screen results are to be used for medical (i.e., treatment) purposes only. Unconfirmed drug screening results must not be used for non-medical purposes (e.g., employment testing, legal testing). Tetrahydrocannabinol Screen method >50 ng/mL Ql (U) Negative 6 (04/12/23 2:32 PM) Normal Negative [facility] Comment on above: Interpretive Data: N egative Cutoff: <50 ng/mL Albumin [Mass/Vol] 4.4 g/dL Normal 3.3 - 5.0 gm/dL [facility] Albumin/Globulin [Mass ratio] 1.3 {ratio} Normal 1.1 - 2.2 [facility] ALP [Catalytic activity/Vol] 78 [iU]/d Normal 21 - 98 Int._Unit/L [facility] ALT No additional P-5'-P [Catalytic activity/Vol] 22 [iU]/d Normal 6 - 46 Int._Unit/L [facility] Anion gap [Moles/Vol] 16 mmol/L Normal 6 - 16 mEq/L [facility] AST [Catalytic activity/Vol] 25 [iU]/d Normal 5 - 43 Int._Unit/L [facility] Bilirubin [Mass/Vol] 0.7 mg/dL Normal 0.0 - 1.1 mg/dL [facility] Bilirubin.direct [Mass/Vol] 0.1 mg/dL Normal 0.1 - 0. 4 mg/dL [facility] Bilirubin.indirect [Mass or moles/Vol] 0.6 mg/dL Normal 0.1 - 0.9 mg/dL [facility] Calcium [Mass/Vol] 10.0 mg/dL Normal 8.9 - 11.1 mg/dL [facility] Chloride [Moles/Vol] 109 mmol/L Normal 101 - 111 mmol/ L [facility] CO2 [Moles/Vol] 23 mmol/L Normal 21 - 31 mmol/L [facility] Cobalamin (Vitamin B12) [Mass/Vol] 1018 pg/mL Normal 50 - 1500 pg/mL [facility] Creatinine [Mass/Vol] 1.8 mg/dL High 0.5 - 1.3 mg/d L [facility] Ethanol [Mass/Vol] mg/dL Normal <=7mg/dL [facility] Folate [Mass/Vol] ng/mL Normal >=6.7ng/mL [facility] Re misol GFR/1.73 sq M.predicted among non-blacks MDRD (S/P/Bld) [Vol rate/Area] 29 mL/min/1.73 m2 Low >=59mL/min/1.73 m2 [facility] Comment on above: Interpretive Data: C hronic kidney disease could be indicated at eGFR's of less than 60 mL/min/1.73m2. Kidney failure is indicated at less than 15 mL/min/1.73m2. Globulin (S) [Mass/Vol] 3.3 g/dL Normal 1.4 - 4.0 gm /dL [facility] Glucose [Mass/Vol] 89 mg/dL Normal 55 - 199 mg/dL [facility] Comment on above: Interpretive Data: I f this glucose result represents a fasting glucose, interpretation should refer to the following reference range: 55-99 mg/dL Magnesium [Mass/Vol] 2.0 mg/dL Normal 1.3 - 2.4 mg/dL [facility] Potassium [Moles/Vol] 4.3 mmol/L Normal 3.5 - 5.3 mmol /L [facility] Protein [Mass/Vol] 7.7 g/dL Normal 6.0 - 7.8 gm/dL [facility] Sodium [Moles/Vol] 144 mmol/L Normal 135 - 145 mmol/L [facility] Troponin I.cardiac [Mass/Vol] 11.90 pg/mL Normal 10.10 - 27.10 pg/mL [facility] Comment on above: Interpretive Data: T he 95% CI (Confidence Interval) PPV (Positive Predictive Value) for myocardial infarction in females is 38 pg/mL, in males 51 pg/mL. The results should be used in conjunction with clinical conditions of myocardial infarction. (Access High Sensitivity Troponin I Instructions For Use, Laly Parsons, December 2017) TSH Qn 0.52 m[IU]/L Normal 0.34 - 5.60 mcIU/mL [facility] Urea nitrogen [Mass/Vol] 39 mg/dL High 5 - 21 mg/d L [facility] Urea nitrogen/Creatinine [Ma ss ratio] 22 mg/mg High 10 - 20 [facility] CHEMISTRYOrdered By: Shauna kendall on 04-12-2023 HbA1c (Bld) [Mass fraction] 5.9 % Normal <=5.9% [facility] ChemAutoSS CHEMISTRYOrdered By: Lab ROP User on 04-12-2023 Glucose [Mass/Vol] 88 mg/dL Normal 55 - 99 mg/dL [facility] C POC Subsection Comment on above: Result Comment: Jose matos RN/ POC Username [place] Invalid Interpre tation Code [facility] POC Subsection Sodium [Moles/Vol] [id number] mmol/L Invalid I nterpretation Code [facility] POC Subsection Sodium [Moles/Vol] [id number] mmol/L Invalid Inte rpretation Code [facility] POC Subsection COAGULATIONOrdered By: Myra Grayson on 04-12-2023 aPTT Coag (PPP) [Time] 29.5 s Normal 25.1 - 36.5 s econd(s) [facility] Comment on above: Interpretive Data: P arameter 15 days - 4 weeks 1 - 5 months 6 - 11 months 1 - 5 years 6 - 10 years 11 - 17 years PTT Mean: 35.4 (27.6-45.6) Mean: 33.5 (24.8-40.7) Mean: 32.4 (25.1-40.7) Mean: 31.6 (24.0-39.2) Mean: 31.6 (26.9-38.7) Mean: 31.0 (24.6-38.4) Pediatric Reference ranges were obtained from a study by Mc Jaquez et al. prepared from 1437 samples obtained at 7 different centers using the same coagulation reagent and instrumentation as [facility]. Currently there are no coagulation studies available worldwide for children to 14 days, and no normal ranges. Heparin therapeutic range (represented by Anti-Factor Xa activity of 0.2 - 0.4 U/mL) corresponds to PTT of 56.6 - 109.0 sec. INR Coag (PPP) [Relative time] 0.9 {INR} Invalid Interpre tation Code [facility] Comment on above: Interpretive Data: I NR results are specifically intended to assess patients stabilized on long-term Anticoagulation therapy suggested INR s Less Intensive Anticoagulation 2.0 3.0 Conventional Range 3.0 4.5 PT Coag (PPP) [Time] 10.4 s Normal 9.4 - 12.5 seco nd(s) [facility] Comment on above: Interpretive Data: 1 5 days - 4 weeks 1 - 5 months 6 -11 months 1 5 years 6 10 years 11 -17 years Mean: 11.2 (9.5 12.6) Mean: 11.0 (9.7 12.8) Mean: 11.0 (9.8 13.0) Mean: 11.3 (9.9 13.4) Mean: 11.7 (10.0 14.6) Mean: 11.8 (10.0 - 14.1) Pediatric Reference ranges were obtained from a study by Mc Jaquez et al. prepared from 1437 samples obtained at 7 different centers using the same coagulation reagent and instrumentation as [facility]. Currently there are no coagulation studies available worldwide for children to 14 days, and no normal ranges. CT Head or Brain w/o Contras ton 04-12-2023 CT Head or Brain w/o Contrast Exam Date/Time: 04/12/2023 13:43 EST Reason for Exam: Mental status change, unknown cause;Other (please specify) Report IMPRESSION: NO ACUTE INTRACRANIAL PROCESS IDENTIFIED. EXAM: CT Head or Brain w/o Contrast DATE: 04/12/2023 1:42 PM CLINICAL HISTORY: Mental status change, unknown cause. COMPARISON: None available. TECHNIQUE: Routine. All CT scans at this facility use dose modulation, iterative reconstruction, and/or weight based dosing when appropriate to reduce radiation dose to as low as reasonably achievable. FINDINGS: There is no intracranial hemorrhage, mass effect, midline shift, extra-axial collection, evidence of hydrocephalus, skull fracture, or a recent ischemic infarct identified. A small probable chronic lacunar infarct is noted within the burnham radiata adjacent to the right body of the lateral ventricle. Mild patchy supratentorial white matter changes most consistent with chronic small vessel ischemic disease. The mastoid air cells and visualized paranasal sinuses are essentially clear. Ordering Provider: Abran Holguin FINAL REPORT Dictated: 04/12/2023 1:47 pm Jae Barry MD Signed (Electronic Signature): 04/12/2023 1:47 pm Signed by: Jae Barry MD Transcribed by: LESLEY Technologist: SOFIA Guaman [facility] CT Spine Cervical w/o Contra ston 04-12-2023 CT Spine Cervical w/o Contrast Exam Date/Time: 04/12/2023 13:43 EST Reason for Exam: fall;Other (please specify) Report IMPRESSION: NO FRACTURE OR EVIDENCE OF CERVICAL SPINE INJURY IDENTIFIED. EXAM: CT Spine Cervical w/o Contrast DATE: 04/12/2023 1:43 PM CLINICAL HISTORY: Pain after recent fall. COMPARISON: None available. TECHNIQUE: Spiral unenhanced images were obtained of the cervical spine, with routine reconstructions performed. All CT scans at this facility use dose modulation, iterative reconstruction, and/or weight based dosing when appropriate to reduce radiation dose to as low as reasonably achievable. FINDINGS: Motion artifact mild to moderately limits detail. The spine is visualized from the craniovertebral junction nearly through the T2 level. There is no fracture, dislocation, or acute paraspinal soft tissue abnormalities identified. Mild reversal of the normal cervical lordosis and moderately extensive degenerative changes are present with multilevel mild to moderate neural foraminal narrowing and borderline to mild central spinal stenosis. Approximately 2 cm heterogeneously dense left thyroid lobe nodule. Elective ultrasound could be considered. Ordering Provider: Abran Holguin FINAL REPORT Dictated: 04/12/2023 1:49 pm Jae Barry MD Signed (Electronic Signature): 04/12/2023 1:49 pm Signed by: Jae Barry MD Transcribed by: LESLEY Technologist: SOFIA Guaman [facility] Capillary Glucose POCon 03-16 Glucose [Mass/Vol] 88 mg/dL Normal 55-99 [facility] Comment on above: Result Comment: Jose matos RN/ Performed By: #### 2 [id number] #### [facility] [address] [place] [address] Consent for Treatmenton 03-16 Consent for Treatment [id number] Normal [facility] ED Clinical Summaryon 2022 ED Clinical Summary (Inserted Image. Chelly ble to display) [address] [address] ED Clinical Summary Person Information Name: AARON JJ [place] Age: 78 Years : 1945 Sex: Female Language: German PCP: JEREMIAH REED MD Marital Status: Visit Id: Visit Reason: Altered mental status; AMS Speciality: Acuity: 2 Enc Type: Observation Med Service: Emergency Arrival: 04/12/2023 12:15:14 Discharge: LOS: 000 04:45 Checkin: 04/12/2023 12:15:14 Checkout: 04/12/2023 17:00:36 Dispo Type: Admitted as IP to this [facility] EVENTS: Event Name Event Status Request Date/Time Start Date/Time Complete Date/Time Arrive Complete 04/12/2023 12:15:14 04/12/2023 12:15:14 04/12/2023 12:15:14 Document Home Meds Request 04/12/2023 12:15:14 Triage Complete 04/12/2023 12:15:14 04/12/2023 12:24:39 04/12/2023 12:24:39 Dr Exam Complete 04/12/2023 12:16:05 04/12/2023 12:16:05 04/12/2023 12:16:05 Registration Complete 04/12/2023 12:16:05 04/12/2023 12:17:59 04/12/2023 12:26:00 EKG Complete 04/12/2023 12:17:53 04/12/2023 12:31:44 X-Ray Complete 04/12/2023 12:17:53 04/12/2023 12:30:46 04/12/2023 12:39:37 Pending Labs Complete 04/12/2023 12:17:53 04/12/2023 15:36:30 Lab Complete 04/12/2023 12:17:53 04/12/2023 15:36:30 Urine Collect Complete 04/12/2023 12:17:53 04/12/2023 15:36:30 RT Request 04/12/2023 12:17:53 CT Complete 04/12/2023 12:17:53 04/12/2023 12:47:55 04/12/2023 13:43:48 Bed Assign Complete 04/12/2023 12:17:59 04/12/2023 12:17:59 04/12/2023 12:17:59 RN Exam Complete 04/12/2023 12:17:59 04/12/2023 12:33:49 04/12/2023 12:33:49 Pending Labs Complete 04/12/2023 12:25:41 04/12/2023 12:25:41 04/12/2023 12:25:42 Reg Complete Request 04/12/2023 12:26:00 Reg Bed Request Complete 04/12/2023 12:26:00 04/12/2023 12:26:00 04/12/2023 12:26:00 Fall Risk Request 04/12/2023 12:33:50 Wet Read Request 04/12/2023 12:39:37 Pending Labs Complete 04/12/2023 13:04:52 04/12/2023 13:04:52 04/12/2023 13:27:02 Lab Complete 04/12/2023 13:04:53 04/12/2023 13:04:53 04/12/2023 13:27:02 Pending Labs Complete 04/12/2023 13:07:53 04/12/2023 13:07:53 04/12/2023 13:08:01 Lab Complete 04/12/2023 13:07:53 04/12/2023 13:07:53 04/12/2023 13:08:01 Possible SIRS Request 04/12/2023 13:50:31 Consult Request 04/12/2023 15:45:13 Hospitalist Consult Request 04/12/2023 15:45:13 Patient Care Request 04/12/2023 15:46:47 Patient Care Request 04/12/2023 15:46:47 Patient Care Request 04/12/2023 15:46:47 Patient Care Request 04/12/2023 15:46:47 Patient Care Request 04/12/2023 16:16:27 Consult Request 04/12/2023 16:16:27 Pending Labs Request 04/12/2023 16:16:27 Lab Request 04/12/2023 16:16:27 Urine Collect Request 04/12/2023 16:16:27 Meds Admin Request 04/12/2023 16:16:27 MRI Request 04/12/2023 16:16:27 RT Request 04/12/2023 16:16:27 Patient Care Request 04/12/2023 16:22:25 Meds Admin Request 04/12/2023 16:24:18 Bed Request Request 04/12/2023 16:27:58 Reg Bed Request Complete 04/12/2023 16:27:58 04/12/2023 16:29:06 04/12/2023 16:29:06 Admit Request 04/12/2023 16:27:58 Patient Care Request 04/12/2023 16:36:59 Pending Labs Inlab 04/12/2023 16:37:28 04/12/2023 16:37:28 Lab Complete 04/12/2023 16:37:28 04/12/2023 16:37:28 04/12/2023 16:53:20 Pending Labs Inlab 04/12/2023 16:37:58 04/12/2023 16:37:58 Pending Labs Collected 04/12/2023 16:57:50 04/12/2023 16:57:50 [address] [address] [place] [id number] PHYS DOC NOTES: MEDICAL INFORMATION: Prescriptions Given: Medications to Continue with No Changes Other Medications acetaminophen-oxycodone (acetaminophen-oxycodone 325 mg-2.5 mg oral tablet) 1 Tablets By Mouth every 12 hours as needed as needed for pain. amlodipine (amLODIPine 2.5 mg Tab) 2 Tablets By Mouth every day. baclofen (baclofen 10 mg Tab) By Mouth 3 times a day. busPIRone (busPIRone 10 mg Tab) By Mouth 2 times a day. calcium citrate (calcium (as calcium citrate) 200 mg oral tablet) By Mouth 2 times a day. gabapentin (gabapentin 600 mg Tab) 1 Tablets By Mouth 3 times a day. glucosamine 500 Milligram By Mouth 2 times a day. melatonin once a day (at bedtime). meloxicam (meloxicam 15 mg Tab) 1 Tablets By Mouth every day. multivitamin with minerals (Ocuvite) By Mouth every day. nortriptyline (nortriptyline 25 mg Cap) 1 Capsules By Mouth at bedtime. omeprazole (omeprazole 40 mg Cap-DR) 1 Capsules By Mouth every day. solifenacin (Vesicare 10 mg Tab) 1 Tablets By Mouth every day for 30 Days. Refills: 11. PATIENT EDUCATION INFORMATION: Instructions: Follow up: DIAGNOSIS: 1:AMS (altered mental status); 2:Elevated serum creatinine; 3:HTN (hypertension); 4:Anxiety and depression; 5:Peripheral neuropathy; 6:Chronic GERD; 7:OAB (overactive bladder); 8:Obesity; 9:On deep vein thrombosis (DVT) prophylaxis; Depression, unspecified Normal [facility] ED Patient Education Noteon 04-12-2023 ED Patient Education Note Normal [facility] ED Patient Summaryon 023 ED Patient Summary [place] [id number] Patient Discharge Instructions Person Information Name: АННАKYLEA Flori Age: 78 Years Arrival Date: 04/12/2023 12:15:14 Discharge Diagnosis: 1:AMS (altered mental status); 2:Elevated serum creatinine; 3:HTN (hypertension); 4:Anxiety and depression; 5:Peripheral neuropathy; 6:Chronic GERD; 7:OAB (overactive bladder); 8:Obesity; 9:On deep vein thrombosis (DVT) prophylaxis; Depression, unspecified Primary Care Physician: JEREMIAH REED MD Provider Information Primary Provider: Abran Holguin DO Advanced Car Scrubber:None The exam and treatment you received in the Emergency Department were for an urgent problem and are not intended as complete care. It is important that you follow up with a doctor, nurse practitioner, or physician?s catalog library assistant for ongoing care. If your symptoms become worse or you do not improve as expected and you are unable to reach your usual health care provider, you should return to the Emergency Department. We are available 24 hours a day. AARON JJ has been given the following list of patient education materials, prescriptions and follow-up instructions: Follow-up Instructions: In the event that this physician does not participate in your insurance network, please consult with your insurance company to find a nearby participating provider. Patient Education Materials: A MESSAGE TO ALL PATIENTS REGARDING OPIOIDS PRESCRIPTION OPIOIDS: WHAT YOU NEED TO KNOW Prescription opioids can be used to help relieve tymtzwqg-zb-bkgxma pain and are often prescribed following a surgery or injury, or for certain health conditions. These medications can be an important part of the treatment but also come with serious risks. It is important to work with your healthcare provider to make sure you are getting the safest, most effective care. WHAT ARE THE RISKS AND SIDE EFFECTS OF OPIOID USE? Prescription opioids carry serious risks of addiction and overdose, especially with prolonged use. An opioid overdose, often marked by slowed breathing, can cause sudden . The use of prescription opioids can have a number of side effects as well, even when taken as directed: ? Tolerance?meaning you might need to take more of the medication for the same pain relief ? Physical dependence?meaning you have symptoms of withdrawal when a medication is stopped ? Increased sensitivity to pain ? Constipation ? Nausea, vomiting, and dry mouth ? Sleepiness and dizziness ? Confusion ? Depression ? Low levels of testosterone that can result in lower sex drive, energy, and strength ? Itching and sweating RISKS ARE GREATER WITH: ? History of drug misuse, substance use disorder, or overdose ? Mental health conditions (such as depression or anxiety) ? Sleep apnea ? Older age (65 years and older) ? Avoid alcohol while taking prescription opioids. Also, unless specifically advised by your health care provider, medications to avoid include: ? Benzodiazepines (such as Xanax or Valium) ? Muscle relaxants (such as Soma or Flexeril) ? Hypnotics (such as Ambien or Lunesta) ? Other prescription opioids KNOW YOUR OPTIONS Talk to your health care provider about ways to manage your pain that don?t involve prescription opioids. Some of these options may actually work better and have fewer risks and side effects. Options may include: ? Pain relievers such as acetaminophen, ibuprofen, and naproxen ? Some medication that are also used for depression or seizures ? Physical therapy and exercise ? Cognitive behavioral therapy, a psychological, goal-directed approach, in which patients learn how to modify physical, behavioral, and emotional triggers of pain and stress. IF YOU ARE PRESCRIBED OPIOIDS FOR PAIN: ? Never take opioids in greater amounts or more often than prescribed. ? Follow up with your primary health care provider. o Work together to create a plan on how to manage your pain. o Talk about ways to help manage your pain that don?t involve prescription opioids. o Talk about any and all concerns and side effects. ? Help prevent misuse and abuse o Never sell or share prescription opioids. o Never use another person?s prescription opioids. ? Store prescription opioids in a secure place and out of reach of others (this may include visitors, children, friends, and family). ? Safely dispose of unused prescription opioids: Find your community drug take-back program or your pharmacy mail-back program, or flush them down the toilet, following guidance from the Food and Drug Administration (www.fda.gov/Drugs/ResourcesForYou). ? Visit www.cdc.gov/drugoverdose to learn about the risks of opioids abuse and overdose. ? If you believe you may be struggling with addiction, tell your health ambulatory care coordinator and ask for guidance or (more content not included)... Normal [facility] Ethanolon 04-12-2023 Ethanol [Mass/Vol] mg/dL Normal <=7 [facility] Comment on above: Performed By: #### 2 [id number] ####[facility] [address] [place] [address] Folateon 04-12-2023 Folate [Mass/Vol] ng/mL Normal >=6.7 [facility] Comment on above: Performed By: #### 1 5130511, 5284291, 45005251, 0131135, 87909525, 954211872, 43019744, 7076245, 8625053, 7347781, 2914825, 6210785 ####[facility] [address] [place] [address] HEMATOLOGYOrdered By: SYSTEM SYSTEM on 04-12-2023 Basophils/100 WBC (Bld) 0.4 % Normal 0.0 - 2.0 % [facility] HemeAutoSS Basophils/Leukocytes Auto (B ld) [Pure # fraction] 0.1 E9/L Normal 0.0 - 0.2 E9/L [facility]Auto[facility] Eosinophils/100 WBC (Bld) 0.1 % Normal 0.0 - 8.0 % [facility]eAuto[facility] Eosinophils/Leukocytes Auto (Bld) [Pure # fraction] 0.0 E9/L Normal 0.0 - 0.5 E9/L [facility] HemeAutoS S Lymphocytes/100 WBC (Bld) 9.7 % Low 14.0 - 50. 0 % [facility]eAutoSS Lymphocytes/Leukocytes Auto (Bld) [Pure # fraction] 1.5 E9/L Normal 1.0 - 4.0 E9/L [facility]eAutoS S Monocytes/100 WBC (Bld) 7.8 % Normal 4.0 - 14.0 % [facility]eAutoSS Monocytes/Leukocytes Auto (B ld) [Pure # fraction] 1.2 E9/L High 0.2 - 1.0 E9/L [facility] Neutrophils/100 WBC (Bld) 82.0 % High 36.0 - 75. 0 % [facility] Neutrophils/Leukocytes Auto (Bld) [Pure # fraction] 12.4 E9/L High 2.0 - 7.5 E9/L [facility] HemeAutoS S HEMATOLOGYOrdered By: Mary Ellsworth on 04-12-2023 Erythrocyte distribution wid th (RBC) [Ratio] 15.3 % High 10.9 - 14.2 % [facility] Hematocrit (Bld) [Volume fraction] 44.4 % Normal 34.0 - 46.0 % [facility] Hemoglobin (Bld) [Mass/Vol] 14.0 g/dL Normal 12.0 - 1 6.0 gm/dL [facility] MCH (RBC) [Entitic mass] 28.5 pg Normal 27.0 - 34.0 pg [facility] MCHC (RBC) [Mass/Vol] 31.6 g/dL Normal 31.4 - 36.0 gm /dL [facility] MCV (RBC) [Entitic vol] 89.9 fL Normal 80.0 - 100.0 fL [facility] Platelet mean volume (Bld) [Entitic vol] 9.8 fL Normal 6.4 - 10.8 fL [facility] Platelets (Bld) [#/Vol] 285.0 E9/L Normal 150.0 - 500. 0 E9/L [facility] RBC (Bld) [#/Vol] 4.9 E12/L Normal 4.3 - 5.9 E12/L [facility] WBC corrected for nucl RBC A uto (Bld) [#/Vol] 15.1 E9/L High 4.0 - 11.0 E9/L [facility] Hep Func Panelon 04-12-2023 Albumin [Mass/Vol] 4.4 g/dL Normal 3.3-5.0 [facility] Comment on above: Performed By: #### 1 9563246, 3034744, 41184514, 2356966, 27349752, 817398525, 84432973, 5522002, 9232263, 7274767, 4181611, 4356923 ####[facility] [address] [place] [address] Albumin/Globulin (S) [Mass conc ratio] 1.3 Normal 1.1-2.2 [facility] Comment on above: Performed By: #### 1 2857999, 6002398, 29165284, 8514075, 95283866, 563862522, 52477761, 7153675, 7717803, 9546648, 2134195, 0193942 ####[address] [place] [address] ALP [Catalytic activity/Vol] 78 Int._Unit/L Normal 21- 98 [facility] Comment on above: Performed By: #### 1 6578184, 1795091, 85656094, 3517409, 71901528, 499364550, 51612547, 8731363, 9447744, 0204421, 1351707, 3604802 ####[facility] [address] [place] [address] ALT No additional P-5'-P [Catalytic activity/Vol] 22 Int._Unit/L Normal 6-46 [facility] Comment on above: Performed By: #### 1 0841546, 8255468, 57237388, 8014526, 60279367, 033954726, 11172076, 2291876, 2205595, 5312454, 3401406, 4329692 ####[facility] [address] [place] [address] AST [Catalytic activity/Vol] 25 Int._Unit/L Normal 5-4 3 [facility] Comment on above: Performed By: #### 1 1740639, 2130671, 92468523, 0054703, 41605351, 111875001, 13588587, 8096580, 1527929, 8740618, 3084795, 3772190 ####[facility] [address] [place] [address] Bilirubin [Mass/Vol] 0.7 mg/dL Normal 0.0-1.1 [facility] Comment on above: Performed By: #### 1 2324688, 6490322, 83645083, 8490024, 39320283, 923200010, 62025477, 1395678, 1393833, 1811878, 3241720, 2319713 ####[facility] [address] [place] [address] Bilirubin.direct [Mass/Vol] 0.1 mg/dL Normal 0.1-0.4 [facility] Comment on above: Performed By: #### 1 1620467, 7799781, 79279107, 1896480, 97415442, 398079591, 65614061, 2695578, 4983563, 4381181, 5746595, 5097336 ####[facility] [address] [place] [address] Bilirubin.indirect [Mass or moles/Vol] 0.6 mg/dL Normal 0.1-0.9 [facility] Comment on above: Performed By: #### 1 4989695, 7402804, 45405367, 3706028, 40313008, 356827122, 21835658, 6156639, 0964893, 8749408, 8645478, 4859321 ####[facility] [address] [place] [address] Globulin (S) [Mass/Vol] 3.3 g/dL Normal 1.4-4.0 [facility] Comment on above: Performed By: #### 1 3138812, 3729857, 76742401, 8207071, 20172987, 251050520, 96861904, 0109475, 7100977, 9965690, 6012520, 8042744 ####[facility] [address] [place] [address] Protein [Mass/Vol] 7.7 g/dL Normal 6.0-7.8 [facility] Comment on above: Performed By: #### 1 4692065, 2524008, 74461659, 0979943, 12358600, 468099166, 64310512, 6276200, 9318116, 2360766, 0973303, 8558448 ####[facility] [address] [place] [address] HvsF1drw 04-12-2023 HbA1c (Bld) [Mass fraction] 5.9 % Normal <=5.9 [facility] Comment on above: Performed By: #### 1 2890521, 8863027, 66832470, 2860118, 29088900, 228972190, 23879742, 3063822, 8482850, 4140273, 9366675, 7915557 ####[facility] [address] [place] [address] Magnesiumon 04-12-2023 Magnesium [Mass/Vol] 2.0 mg/dL Normal 1.3-2.4 [facility] Comment on above: Performed By: #### 1 5531033, 0612252, 89310569, 3110760, 16138249, 873320032, 40539239, 9877987, 8421974, 4773927, 9436672, 2087247 ####[facility] [address] [place] [address] Monitor Recordon 04-12-2023 Monitor Record [id number] Normal [facility] PT & PTTon 04-12-2023 aPTT Coag (PPP) [Time] 29.5 second(s) Normal 25.1-36.5 [facility] Comment on above: Result Comment: Para meter 15 days - 4 weeks 1 - 5 months 6 - 11 months 1 - 5 years 6 - 10 years 11 - 17 years PTT Mean: 35.4 (27.6-45.6) Mean: 33.5 (24.8-40.7) Mean: 32.4 (25.1-40.7) Mean: 31.6 (24.0-39.2) Mean: 31.6 (26.9-38.7) Mean: 31.0 (24.6-38.4) Pediatric Reference ranges were obtained from a study by Mc Jaquez et al. prepared from 1437 samples obtained at 7 different centers using the same coagulation reagent and instrumentation as [facility]. Currently there are no coagulation studies available worldwide for children to 14 days, and no normal ranges. Heparin therapeutic range (represented by Anti-Factor Xa activity of 0.2 - 0.4 U/mL) corresponds to PTT of 56.6 - 109.0 sec. Performed By: #### 1 0569943, 8894329, 83481713, 2926707, 03825916, 143719359, 64806819, 6538542, 6988265, 8238834, 3922518, 2928048 ####[facility] [address] [place] [address] INR Coag (PPP) [Relative time] 0.9 {INR} Invalid Interpretation Code [facility] Comment on above: Result Comment: INR results are specifically intended to assess patients stabilized on long-term Anticoagulation therapy suggested INR?s ?Less Intensive Anticoagulation? 2.0 ? 3.0 Conventional Range 3.0 ? 4.5 Performed By: #### 1 9158772, 5337816, 29507753, 7052557, 77022533, 823442640, 24500905, 5225965, 2106526, 6089680, 8771994, 3105990 ####[facility] [address] [place] [address] PT Coag (PPP) [Time] 10.4 second(s) Normal 9.4-12.5 [facility] Comment on above: Result Comment: 15 d ays - 4 weeks 1 - 5 months 6 -11 months 1 ? 5 years 6 ? 10 years 11 -17 years Mean: 11.2 (9.5 ? 12.6) Mean: 11.0 (9.7 ? 12.8) Mean: 11.0 (9.8 ? 13.0) Mean: 11.3 (9.9 ? 13.4) Mean: 11.7 (10.0 ? 14.6) Mean: 11.8 (10.0 - 14.1) Pediatric Reference ranges were obtained from a study by Mc Jaquez et al. prepared from 1437 samples obtained at 7 different centers using the same coagulation reagent and instrumentation as [facility]. Currently there are no coagulation studies available worldwide for children to 14 days, and no normal ranges. Performed By: #### 1 6765958, 8839161, 31103938, 5657744, 13340600, 177117200, 35937923, 0444316, 0729936, 3478063, 9214958, 3785019 ####[facility] [address] [place] [address] Pre-Arrival Noteon Pre-Arrival Note Pre-Arrival Summary Name: , Current Date: 04/12/2023 12:18:15 EST Gender: Female Date of : Age: 88 Pre-Arrival Type: EMS ETA: 04/12/2023 12:29:00 EST Primary Care Physician: Presenting Problem: altered mental status Pre-Arrival User: Paul ALVARES, Brenda Talbert Referring Source: Location: Completion Date/Time: 04/12/2023 11:59:00 [facility] Emergency Department Pre-Hospital Report Form Vital Signs: Pre-Hospital Report: Treatment in Route: Response to Treatment: Misc. Issues: Normal [facility] RAD - MRI Screening Formon 1 06-12-2022 RAD - MRI Screening Form [id number] Normal [facility] TSH With T4fr Reflexon 04-12 TSH Qn 0.52 m[IU]/L Normal 0.34-5.60 [facility] Comment on above: Performed By: #### 1 5933848, 5395525, 88433152, 8046691, 79122553, 389265676, 39317768, 2675133, 4458948, 9297685, 1224978, 8282110 ####[facility] [address] [place] [address] Troponin 0 Hr.on 04-12-2023 Troponin I.cardiac [Mass/Vol] 11.90 pg/mL Normal 10.10 -27.10 [facility] Comment on above: Order Comment: tez LINTON RN is drawing labs and sending [id number] 04/12/2023 12:26:28 EST Result Comment: The 95% CI (Confidence Interval) PPV (Positive Predictive Value) for myocardial infarction in females is 38 pg/mL, in males 51 pg/mL. The results should be used in conjunction with clinical conditions of myocardial infarction. (Access High Sensitivity Troponin I Instructions For Use, Laly Compellon, December 2017) Performed By: #### 1 0714117, 6913185, 16392019, 1976329, 11467766, 270433991, 83437867, 3173183, 6479421, 9999694, 4586150, 5213799 ####[facility] [address] [place] [address] U Drug Screenon 04-12-2023 Benzodiazepines Ql (U) Positive Abnormal Negative Fi [facility] Comment on above: Result Comment: Crit ical Result UD_BENZ:POS Called to ABRAN HOLGUIN AT ER by URSULA LOZANO And Read Back For Confirmation at: 04/12/2023 15:35:32\Unconfirmed by alternate method\Results verified by repeat analysis\No confirmation requested by Physican Negative Cutoff: <200 ng/mL Performed By: #### 2 287866 #### [facility] [address] [place] [address] Amphetamines Screen method > 1000 ng/mL Ql (U) Negative Normal Negative [facility] Comment on above: Result Comment: Nega tive Cutoff: <1000 ng/mL Performed By: #### 2 088388 #### [facility] [address] [place] [address] Barbiturates Screen Ql (U) Negative Normal Negative [facility] Comment on above: Result Comment: Nega tive Cutoff: <200 ng/mL Performed By: #### 2 271404 #### [facility] [address] [place] [address] Cocaine Ql (U) Negative Normal Negative [facility] Comment on above: Result Comment: Nega tive Cutoff: <300 ng/mL Performed By: #### 2 310460 #### [facility] [address] [place] [address] Opiates Screen Ql (U) Negative Normal Negative [facility] Comment on above: Result Comment: Nega tive Cutoff: <300 ng/mL Performed By: #### 2 062483 #### [facility] [address] [place] [address] Phencyclidine Screen method >25 ng/mL Ql (U) Negative Normal Negative [facility] Comment on above: Result Comment: Nega tive Cutoff: <25 ng/mL These drug screen results are to be used for medical (i.e., treatment) purposes only. Unconfirmed drug screening results must not be used for non-medical purposes (e.g., employment testing, legal testing). Performed By: #### 2 843403 #### [facility] [address] [place] [address] Tetrahydrocannabinol Screen method >50 ng/mL Ql (U) Negative Normal Negative [facility] Comment on above: Result Comment: Nega tive Cutoff: <50 ng/mL Performed By: #### 2 808438 #### [facility] [address] [place] [address] UA With Cult Reflexon 2022 Bacteria LM Ql (Urine sed) TRACE Normal Trace [facility] Comment on above: Performed By: #### 1 9550639 ####[facility] [address] [place] [address] Bilirubin Ql (U) Negative Normal Negative [facility] Comment on above: Performed By: #### 1 4620025 ####[facility] [address] [place] [address] Clarity (U) CLEAR Normal Clear [facility] Comment on above: Performed By: #### 1 2082054 ####[facility] [address] [place] [address] Color (U) YELLOW Normal Yellow [facility] Comment on above: Performed By: #### 1 4950017 ####[address] [address] Epithelial cells.squamous LM .HPF (Urine sed) [#/Area] 0-2 Normal 0-2 [facility] Comment on above: Performed By: #### 1 2091679 ####[address] [address] Glucose Test strip (U) [Mass/Vol] Negative Normal Negative [facility] Comment on above: Performed By: #### 1 2303838 ####[address] [address] Hemoglobin Ql (U) Negative Normal Negative [facility] Comment on above: Performed By: #### 1 3055060 ####[facility] [address] [place] [address] Ketones (U) [Mass/Vol] TRACE Abnormal Negative Fi [facility] Comment on above: Performed By: #### 1 9695578 ####[address] [address] [place].plasma/[place].RBC (Bld) [Mass ratio] 0-3 N ormal 0-3 [facility] Comment on above: Performed By: #### 1 6386354 ####[facility] [address] [place] [address] Mucus Ql (Urine sed) TRACE Normal [facility] Comment on above: Performed By: #### 1 6275116 ####[address] [place] [address] Nitrite Ql (U) Negative Normal Negative [facility] Comment on above: Performed By: #### 1 3295358 ####[facility] [address] [place] [address] pH (U) 5.0 [pH] Invalid Interpretation Code 5.0-9.0 [facility] Comment on above: Performed By: #### 1 4829110 ####[facility] [address] [place] [address] Protein (U) [Mass/Vol] TRACE Abnormal Negative Fi [facility] Comment on above: Performed By: #### 1 7230140 ####[facility] [address] [place] [address] Specific gravity (U) [Rel density] >=1.030 Invalid Interpretation Code 1.005-1.030 [facility] Comment on above: Performed By: #### 1 0537820 ####[facility] [address] [place] [address] Type of Urine collection method Catheter Normal [facility] Comment on above: Performed By: #### 1 1760855 ####[facility] [address] [place] [address] Urobilinogen Qn (U) 0.2 {Nevaeh'U}/dL Normal 0.0-1.0 [facility] Comment on above: Performed By: #### 1 9757285 ####[facility] [address] [place] [address] WBC Auto Ql (U) Negative Normal Negative [facility] Comment on above: Performed By: #### 1 3257874 ####[facility] [address] [place] [address] WBC casts LM.LPF (Urine sed) [#/Area] 0-3 Normal [facility] Comment on above: Performed By: #### 1 3768743 ####[facility] [address] [place] [address] WBC LM.HPF (Urine sed) [#/Area] 0-5 Normal 0-5 [facility] Comment on above: Performed By: #### 1 7046268 ####[facility] [place] [facility] [address] [place] [address] URINALYSISOrdered By: Bonny Workman on 04-12-2023 Bacteria LM Ql (Urine sed) Trace /HPF Normal Trace/HPF [facility] UA Auto SS Bilirubin Ql (U) Negative (04/12/23 2:32 PM) Normal Negative [facility] UA Auto SS Clarity (U) Clear (04/12/23 2:32 PM) Normal Clear [facility] UA Auto SS Color (U) Yellow (04/12/23 2:32 PM) Normal Yellow [facility] UA Auto SS Epithelial cells.squamous LM.HPF (Urine sed) [#/Area] 0-2 /HPF Normal 0-2/HPF [facility] UA Auto SS Glucose Test strip (U) [Mass/Vol] Negative (04/12/23 2:32 PM) Normal Negative [facility] UA Auto SS Hemoglobin Ql (U) Negative (04/12/23 2:32 PM) Normal Negative [facility] UA Auto SS Ketones (U) [Mass/Vol] Trace *ABN* (04/12/23 2:32 PM) Invalid Interpretation Code Negative [facility] UA Auto SS [place].plasma/Lithi um.RBC (Bld) [Mass ratio] 0-3 /HPF Normal 0-3/HPF [facility] UA Auto SS Mucus Ql (Urine sed) Trace (04/12/23 2:32 PM) Normal [facility] UA Auto SS Nitrite Ql (U) Negative (04/12/23 2:32 PM) Normal Negative [facility] UA Auto SS pH (U) 5.0 *NA* (04/12/23 2:32 PM) Invalid Interpretation Code 5.0 - 9.0 [facility] UA Auto SS Protein (U) [Mass/Vol] Trace *ABN* (04/12/23 2:32 PM) Invalid Interpretation Code Negative [facility] UA Auto SS Specific gravity (U) [Rel density] >=1.030 *NA* (04/12/23 2:32 PM) Invalid Interpretation Code 1.005 - 1.030 [facility] UA Auto SS UA Spec Desc Catheter (04/12/23 2:32 PM) Normal [facility] UA Auto SS Urobilinogen Qn (U) 0.3815349 {Nevaeh'U}/dL Normal 0.0 - 1.0 EU/dL [facility] UA Auto SS WBC Auto Ql (U) Negative (04/12/23 2:32 PM) Normal Negative [facility] UA Auto SS WBC casts LM.LPF (Urine sed) [#/Area] 0-3 (04/12/23 2:32 PM) Normal [facility] UA Auto SS WBC LM.HPF (Urine sed) [#/Area] 0-5 /HPF Normal 0-5/HPF [facility] UA Auto SS Vit B12on 04-12-2023 Cobalamin (Vitamin B12) [Mass/Vol] 1018 pg/mL Normal 50-1500 [facility] Comment on above: Performed By: #### 1 4747921, 8209321, 71993083, 5477880, 30904031, 428853152, 53179220, 0150760, 8200198, 5152111, 9774796, 1349236 ####[facility] [address] [place] [address] XR Chest Single Viewon 04-12 XR Chest Single View Exam Date/Time: 04/12/2023 12:39 EST Reason for Exam: Altered Mental Status;Other (please specify) Report IMPRESSION: NO EVIDENCE OF ACTIVE CARDIOPULMONARY DISEASE, BY PORTABLE CHEST RADIOGRAPHY. EXAM: XR Chest Single View DATE: 04/12/2023 12:30 PM CLINICAL HISTORY: Altered Mental Status. COMPARISON: None available. TECHNIQUE: A portable upright AP radiograph of the chest was obtained. FINDINGS: There are shallow inspiratory volumes, without significant pulmonary infiltrate, cardiomegaly, vascular congestion, sizable pleural effusion, pneumothorax, or displaced fractures identified. Ordering Provider: Abran Holguin FINAL REPORT Dictated: 04/12/2023 12:51 pm Jae Barry MD Signed (Electronic Signature): 04/12/2023 12:51 pm Signed by: Jae Barry MD Transcribed by: LESLEY Technologist: RICARDO Technical Comments Radiation Dose: Ka,r in mGy = na DAP = na Normal [facility] eGFRon 04-12-2023 GFR/1.73 sq M.predicted dann g non-blacks MDRD (S/P/Bld) [Vol rate/Area] 29 mL/min/1.73 m2 Low >=59 [facility] Comment on above: Order Comment: Order added by Discern Expert. Result Comment: Hse Specialist sally kidney disease could be indicated at eGFR's of less than 60 mL/min/1.73m2. Kidney failure is indicated at less than 15 mL/min/1.73m2. Performed By: #### 1 2223482, 6478979, 59994606, 1195291, 08647295, 121183144, 47522840, 2281609, 4414418, 6008121, 9609802, 4992627 ####[facility] [place] [facility] [address] [place] [address] XR CSPINE OBL FLEX_EXTon XR CSPINE OBL FLEX_EXT EXAM: XR CSPINE O BL FLEX_EXT HISTORY: Pain in cervical spine COMPARISON: None. TECHNIQUE: Flexion and extension lateral views FINDINGS: Vertebral bodies are normal in height. There is a normal cervical lordotic curve. There is disc space narrowing at C4-C5, C5-C6, and C6-C7 with associated anterior and posterior osteophytosis. Disc space narrowing also seen at C3-C4. Comparison of the flexion and extension views shows no visible segmental instability. IMPRESSION: Multilevel cervical spondylosis. Electronically authenticated by: Serena TEJEDA Date: 2022-09-02 00:37 Normal [facility] MRI SHOULDER RT WO CONon MRI SHOULDER RT WO CON EXAMINATION: MRI SHOULDER RT WO CON HISTORY: Right rotator cuff strain ; acute right shoulder, arm, and neck pain; no known injury COMPARISON: XR shoulder right 08/10/2022 TECHNIQUE: A variety of imaging planes and parameters were utilized for visualization of suspected pathology. Imaging was performed without contrast. FINDINGS: ROTATOR CUFF REGION CUFF TENDONS: Marked increased signal intensity in the supraspinatus tendon indicates tendon degeneration and/or tendinitis. No full-thickness tear. Mild increased signal within the subscapularis tendon. CUFF MUSCLES: Normal appearing muscles. DELTOID: Normal. No significant atrophy or tear. LONG BICEPS TENDON: No abnormal signal, attrition, or tear. LABRUM/BICEPS ANCHOR SUPERIOR: No visible labral tear or biceps anchor pathology. ANTERIOR/INFERIOR: No visible tear or attrition. POSTERIOR: No posterior labrum abnormality. CAPSULE No appreciable fluid within the joint capsule. No visible capsular laxity or thickening. AC JOINT REGION AC JOINT: Marked osteoarthropathy with moderate to marked narrowing of the underlying coracoacromial arch. AC LIGAMENTS: Normal acromioclavicular ligament. CC LIGAMENTS: Normal coracoclavicular ligaments. ACROMION: Normal horizontal (Type I) configuration. SUBACROMIAL BURSA: No significant effusion. HYALINE CARTILAGE: No visible cartilage narrowing or focal defect. OTHER BONES: Normal proximal humerus, glenoid, and coracoid. OTHER OBSERVATIONS: Negative. No other significant findings or glenohumeral effusion. IMPRESSION: 1. High-grade strain versus partial tear of supraspinatus tendon. Mild stranding of the subscapularis tendon. 2. Marked degenerative changes of acromioclavicular joint impinging upon the superior rotator cuff. 3. No appreciable fluid within the joint capsule, but no appreciable wall thickening of the capsule to suggest adhesive capsulitis. Electronically authenticated by: EHSAN MILLER Date: 2022-08-22 09:25 Normal [facility] XR SHOULDER RT 2V or >on XR SHOULDER RT 2V or > EXAM: Right shoul jane. HISTORY: . Right rotator cuff strain . COMPARISON: None. TECHNIQUE: 3 views FINDINGS: No fracture or dislocation of the right shoulder is noted. Small spurs are noted involving the humeral head. Early arthritic changes of the right acromioclavicular joint are noted. Surrounding soft tissues are unremarkable. 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 Electronically authenticated by: RBENT MALDONADO Date: 2022-08-10 22:45 Normal [facility] Ambulatory Visit Summaryon 0 06-21-2022 Ambulatory Visit Summary АННАHERMELINDAAARON J :1945 Visit Date:06/21/2022 Ambulatory Visit Instructions Your Diagnosis OAB (overactive bladder) Urethral stricture Tests Performed Urnls Dip Stick Auto w/o Microscopy POC [id number] Your Care Team Attending Physician - MIAH ROE, BRENDA Poole Primary Care Physician - JEREMIAH REED MD This Is Your Medications List solifenacin (Vesicare 10 mg Tab) Contact prescribing physician if questions or concerns acetaminophen-oxycodone (acetaminophen-oxycodone 325 mg-2.5 mg oral tablet) amlodipine (amLODIPine 2.5 mg Tab) baclofen (baclofen 10 mg Tab) busPIRone (busPIRone 10 mg Tab) calcium citrate (calcium (as calcium citrate) 200 mg oral tablet) gabapentin (gabapentin 600 mg Tab) glucosamine melatonin multivitamin with minerals (Ocuvite) nortriptyline (nortriptyline 25 mg Cap) omeprazole (omeprazole 40 mg Cap-) [Image Removed: STOP]Stop taking these medications tolterodine (tolterodine 2 mg Tab) Procedures Performed Cystourethroscopy with dilation of urethral stricture (06/16/2016), Appendectomy, Biopsy of breast, Hysterectomy. Discharge Vitals Height 165 cm Height 65 in Weight 87 kg Weight 191.4 lb BMI 31.96 What to do next Scheduled Follow-Up Appointments Sunday 2:30 PM EST With: BRENDA MARIN PA-C Where: [facility] Patient Education 06-21-19 Patient Education Obstetrics and Gynec ology Overactive Bladder, Adult Overactive bladder refers to a condition in which a person has a sudden need to pass urine. The person may leak urine if he or she cannot get to the bathroom fast enough (urinary incontinence). A person with this condition may also wake up several times in the night to go to the bathroom. Overactive bladder is associated with poor nerve signals between your bladder and your brain. Your bladder may get the signal to empty before it is full. You may also have very sensitive muscles that make your bladder squeeze too soon. These symptoms might interfere with daily work or social activities. What are the causes? This condition may be associated with or caused by: ? Urinary tract infection. ? Infection of nearby tissues, such as the prostate. ? Prostate enlargement. ? Surgery on the uterus or urethra. ? Bladder stones, inflammation, or tumors. ? Drinking too much caffeine or alcohol. ? Certain medicines, especially medicines that get rid of extra fluid in the body (diuretics). ? Muscle or nerve weakness, especially from: ? A spinal cord injury. ? Stroke. ? Multiple sclerosis. ? Parkinson's disease. ? Diabetes. ? Constipation. What increases the risk? You may be at greater risk for overactive bladder if you: ? Are an older adult. ? Smoke. ? Are going through menopause. ? Have prostate problems. ? Have a neurological disease, such as stroke, dementia, Parkinson's disease, or multiple sclerosis (MS). ? Eat or drink things that irritate the bladder. These include alcohol, spicy food, and caffeine. ? Are overweight or obese. What are the signs or symptoms? Symptoms of this condition include: ? Sudden, strong urge to urinate. ? Leaking urine. ? Urinating 8 or more times a day. ? Waking up to urinate 2 or more times a night. How is this diagnosed? Your health care provider may suspect overactive bladder based on your symptoms. He or she will diagnose this condition by: ? A physical exam and medical history. ? Blood or urine tests. You might need bladder or urine tests to help determine what is causing your overactive bladder. You might also need to see a health care provider who specializes in urinary tract problems (urologist). How is this treated? Treatment for overactive bladder depends on the cause of your condition and whether it is mild or severe. You can also make lifestyle changes at home. Options include: ? Bladder training. This may include: ? Learning to control the urge to urinate by following a schedule that directs you to urinate at regular intervals (timed voiding). ? Doing Kegel exercises to strengthen your pelvic floor muscles, which support your bladder. Toning these muscles can help you control urination, even if your bladder muscles are overactive. ? Special devices. This may include: ? Biofeedback, which uses sensors to help you become aware of your body's signals. ? Electrical stimulation, which uses electrodes placed inside the body (implanted) or outside the body. These electrodes send gentle pulses of electricity to strengthen the nerves or muscles that control the bladder. ? Women may use a plastic device that fits into the vagina and supports the bladder (pessary). ? Medicines. ? Antibiotics to treat bladder infection. ? Antispasmodics to stop the bladder from releasing urine at the wrong time. ? Tricyclic antidepressants to relax bladder muscles. ? Injections of botulinum toxin type A directly into the bladder tissue to relax bladder muscles. ? Lifestyle changes. This may include: ? Weight loss. Talk to your health care provider about weight loss methods that would work best for you. ? Diet changes. This may include reducing how much alcohol and caffeine you consume, or drinking fluids at different times of the day. ? Not smoking. Do not use any products that contain nicotine or tobacco, such as cigarettes and e-cigarettes. If you need help quitting, ask your health care provider. ? Surgery. ? A device may be implanted to help manage the nerve signals that control urination. ? An electrode may be implanted to stimulate electrical signals in the bladder. ? A procedure may be done to change the shape of the bladder. This is done only in very severe cases. Follow these instructions at home: Lifestyle ? Make any diet or lifestyle changes that are recommended by your health care provider. These may include: ? Drinking less fluid or drinking fluids at different times of the day. ? Cutting down on caffeine or alcohol. ? Doing Kegel exercises. ? Losing weight if needed. ? Eating a healthy and balanced diet to prevent constipation. This may include: ? Eating foods that are high in fiber, such as fresh fruits and vegetables, whole grains, and beans. ? Limiting foods that are high in fat and processed sugars, such as fried and sweet foods. General instructions ? Take ove (more content not included)... Normal [facility] Urology Office/Clinic Noteon 06-21-2022 Urology Office/Clinic Note Chief Complaint Pt is here for 1 year follow up HPI Staff Aaron is a 77 y.o. female here for 1 year follow up. Previous Dx: chronic cystitis, OAB, urethral stricture, acute UTI, feeling of incomplete bladder emptying, frequency of urination, nocturia, weak urine stream, urgency of urination. S/P cysto/UD done on 06/16/16. Pt states she ran out of Tolterodine and never got it refilled, instead she had an old script at home of Oxybutynin or VESIcare at home that she took. Pt states only 1 infection since last visit. Dysuria: denies Incomplete bladder emptying: denies Hematuria: denies Frequency: denies Urgency: denies Nocturia: 1-2x a night Stream: moderate stream Leaking: denies Post void dripping: denies Wearing pads/ Depends: denies Urge incontinence: denies Stress incontinence: denies Incontinence without Sensory Awareness: denies Abdominal pain: denies Flank pain: denies Sexual complaints: _ History of Present Illness staff HPI reviewed and agree. Review of Systems PHQ Score Initial Depression Screen Score: 0 no fever, chills, malaise, myalgia. no rash/lesions. no chest pain, palpitations, or SOB. no abdominal pain, nausea, vomiting. no unilateral calf swelling, redness, pain Physical Exam Vitals & Measurements HT: 65 in HT: 165 cm WT: 87 kg WT: 191.4 lb BMI: 31.96 General: nontoxic, NAD Mouth: moist mucosa Lungs: normal respiratory effort Cardio: regular rate, good distal perfusion Abdomen: nondistended, no suprapubic distention or tenderness, no CVA tenderness Neurologic: Grossly normal Skin: No rashes or suspicious lesions Assessment/Plan 1. OAB (overactive bladder) (N32.81: Overactive bladder) Failed Ditropan and Vesicare previously. Pt had been taking Tolterodine 4 mg - two 2 mg tabs before bed (off-label in hopes we can target the nighttime symptoms) for over 1 yr. Pt states it was helping pretty well. she ran out of Tolterodine and had an old script at home of VESIcare that she took. Thinks this seemed to work better than the Tolterodine. only getting up once at night to void currently. Improved from 3-6x/night.sent rx for Vesicare 10 mg QHS. SEs discussed. Follow up in 1 year or sooner if needed. Pt understands and agrees with plan 2. Urethral stricture (N35.919: Unspecified urethral stricture, male, unspecified site) S/p UD done 06/16/16. No sample provided for UA today. UA today shows small leuks. Pt states only 1 infection since last visit. Pt inquired about UTI prevention and how to tell if she has a UTI. Given she has only had 1 UTI over the past year, she does not really need UTI prevention. 1 UTI per year is normal. UTI sxs include burning, frequency, urgency. Did discuss OTC options, increasing fluids, and appropriate hygiene. Follow-up With When Contact Information MIAH ROE, BRENDA Poole, URL [address] [place] [address] Additional Instructions: f/u 1 yr Patient Education Overactive Bladder, Adult Documentation recorded by the scribe Alma Greco accurately reflects the services(s) I performed and decisions made by me. Authenticated by Brenda Marin PA-C on 06/21/2022 15:22:58. I, Alma Greco, personally scribed for BERNADETTE Steven on 06/21/2022 15:20:06. . Problem List/Past Medical History Ongoing Chronic cystitis Cigarette smoker Dorsalgia OAB (overactive bladder) Urethral stricture Historical Abdominal tenderness Acute UTI Dysuria Feeling of incomplete bladder emptying Frequency of urination Nocturia Other post-traumatic urethral stricture, female Urinary urgency Weak urine stream Procedure/Surgical History Cystourethroscopy with dilation of urethral stricture (06/16/2016), Appendectomy, Biopsy of breast, Hysterectomy. Medications acetaminophen-oxycodone 325 mg-2.5 mg oral tablet, 1 tab(s), Oral, q12hr, PRN amLODIPine 2.5 mg Tab, 5 mg= 2 tab(s), Oral, Daily baclofen 10 mg Tab, Oral, TID busPIRone 10 mg Tab, Oral, BID calcium (as calcium citrate) 200 mg oral tablet, Oral, BID gabapentin 600 mg Tab, 600 mg= 1 tab(s), Oral, TID glucosamine, 500 mg, Oral, BID melatonin, Once a day (at bedtime) nortriptyline 25 mg Cap, 25 mg= 1 cap(s), Oral, Bedtime Ocuvite, Oral, Daily omeprazole 40 mg Cap-DR, 40 mg= 1 cap(s), Oral, Daily Allergies No Known Allergies Social History Alcohol - Denies Alcohol Use, 02/18/2019 Tobacco Former smoker, quit more than 30 days ago Tobacco Use:. Cigarettes, 02/03/2021 Family History Primary malignant neoplasm of female genital organ: Mother. Stroke: Father. Immunizations Vaccine Date Status SARS-CoV-2 (COVID-19) mRNA BNT-162b2 vax 03/31/2021 Recorded SARS-CoV-2 (COVID-19) Ad26 vaccine 07/21/2020 Recorded influenza virus vaccine, inactivated 04/11/2020 Recorded influenza virus vaccine, inactivated 02/02/2011 Recorded Lab Results Ambulatory Point of Care Results Bilirubin Urine (more content not included)... Normal [facility] Comment on above: Result Comment: Elec tronically Signed By: BRENDA MARIN PA-C\.br\Date and Time Signed: 06/21/22 15:23 EST\.br\Electronically Co-Signed By: Alma Greco\.br\Date and Time Co-Signed: 06/21/22 15:[address] CHEST WO CONon 06-12-2022 CT CHEST WO CON EXAMINATION: CT CHES T WO CON HISTORY: Pneumonia ; chronic shortness of breath COMPARISON: CT chest 02/22/2022 TECHNIQUE: Axial, Coronal, and Sagittal images were created without the administration of IV contrast material. Dose reduction techniques were achieved by using automated exposure control and/or adjustment of mA and/or kV according to patient size and/or use of iterative reconstruction technique. FINDINGS: LUNGS: A few small faint opacities scattered within left lung. Lungs are otherwise clear. Moderate emphysematous changes within lung apices. PLEURA: No mass, effusion, or pneumothorax. VASCULATURE: No abnormality. SOUTH: No mass or adenopathy. MEDIASTINUM: Small hiatal hernia. No mass or adenopathy. CARDIAC: No enlargement or pericardial thickening. AORTA: No aneurysm or dissection. CHEST WALL: 1.2 cm rounded hypodensity within superior pole of left thyroid lobe. BONES: No bone lesion or fracture. LIMITED ABDOMEN: No suspicious findings. Limited images of the upper abdomen. OTHER: Negative. IMPRESSION: 1. Trace amount of residual infiltrates within left lung, but significantly improved. Findings favor nearly resolved pneumonia. 2. Moderate emphysematous changes. 3. Small hiatal hernia. 4. Nonspecific 1.2 cm nodule within left thyroid lobe above level of imaging on prior study. Consider ultrasound evaluation of thyroid. Electronically authenticated by: EHSAN MILLER Date: 2022-06-12 16:56 Normal [facility] VIT D 1 25 DIHYDROXYon 04-24 Calcitriol(1,25 di-OH Vit D) 91.0 pg/mL Critically high 24 .8-81.5 [facility] Comment on above: Performed By: #### V [id number] #### [facility] [address] [place] [address] Dr. Helio Cee CULTURE URINEon 04-23-2022 CULTURE URINE Isolate 1 Escherichia coli >100,000 cfu/mL of ORGANISM 1 Escherichia coli ANTIBIOTIC M.I.C RX STATUS Ampicillin <=2 S F Ampicillin/Sulbactam <=2 S F Piperacillin/Tazobactam <=4 S F Cefazolin <=4 S F Ceftazidime <=1 S F Ceftriaxone <=1 S F Ertapenem <=0.5 S F Imipenem <=0.25 S F Amikacin <=2 S F Gentamicin <=1 S F Tobramycin <=1 S F Ciprofloxacin <=0.25 S F Levofloxacin <=0.12 S F Nitrofurantoin <=16 S F Trimethoprim/Sulfamethoxazole <=20 S F Normal T [facility] Comment on above: Performed By: #### U RCX #### [facility] [address] [place] [address] Dr. Helio Cee CBC AUTO DIFFon 04-21-2022 BASO # 0.0 103/ul Normal 0.0-0.1 [facility] Comment on above: Performed By: #### E RUR #### [facility] [address] [place] [address] Dr. Helio Cee Basophils/100 WBC (Bld) 0.4 % Normal 0.2-2.0 [facility] Comment on above: Performed By: #### E RUR #### [facility] [address] [place] [address] Dr. Helio Cee EO # 0.4 103/ul Normal 0.0-0.7 [facility] Comment on above: Performed By: #### E RUR #### [facility] [address] [place] [address] Dr. Helio Cee Eosinophils/100 WBC (Bld) 4.0 % Normal 0.9-7.0 [facility] Comment on above: Performed By: #### E RUR #### [facility] [address] [place] [address] Dr. Helio Cee Erythrocyte distribution wid th (RBC) [Ratio] 15.2 % Critically high 11.0-15.0 [facility] Comment on above: Performed By: #### E RUR #### [facility] [address] [address] [address] Helio Cee Hematocrit (Bld) [Volume fraction] 41.0 % Normal 3 6.0-48.0 [facility] Comment on above: Performed By: #### E RUR #### [facility] [address] [place] [address] Dr. Helio Cee Hemoglobin (Bld) [Mass/Vol] 12.9 g/dL Normal 12.0-16. 0 [facility] Comment on above: Performed By: #### E RUR #### [facility] [address] [address] [address] Helio Cee IG # 0.04 10e3/ul Critically high 0.00-0.03 [facility] Comment on above: Performed By: #### E RUR #### [facility] [address] [place] [address] Dr. Helio Cee IG % 0.4 % Normal 0.0-0.5 [facility] Comment on above: Performed By: #### E RUR #### [facility] [address] [place] [address] Dr. Helio Cee LYMPH # 1.1 103/ul Critically low 1.2-3.8 [facility] Comment on above: Performed By: #### E RUR #### [facility] [address] [place] [address] Dr. Helio Cee Lymphocytes/100 WBC (Bld) 11.9 % Critically low 20.5-6 0.0 [facility] Comment on above: Performed By: #### E RUR #### [facility] [address] [place] [address] Dr. Helio Cee MANUAL DIFF REQ NO Normal [facility] Comment on above: Performed By: #### E RUR #### [facility] [address] [place] [address] Dr. Helio Cee MCH (RBC) [Entitic mass] 29.0 pg Normal 26.7-34.0 [facility] Comment on above: Performed By: #### E RUR #### [facility] [address] [place] [address] Dr. Helio Cee MCHC (RBC) [Mass/Vol] 31.5 g/dL Normal 29.9-35.2 [facility] Comment on above: Performed By: #### E RUR #### [facility] [address] [place] [address] Dr. Helio Cee MCV (RBC) [Entitic vol] 92.1 fL Normal 81.0-99.0 [facility] Comment on above: Performed By: #### E RUR #### [facility] [address] [place] [address] Dr. Helio Cee MONO # 0.4 103/ul Normal 0.3-0.8 [facility] Comment on above: Performed By: #### E RUR #### [facility] [address] [place] [address] Dr. Helio Cee Monocytes/100 WBC (Bld) 4.4 % Normal 1.7-12.0 [facility] Comment on above: Performed By: #### E RUR #### [facility] [address] [place] [address] Dr. Helio Cee NEUT # 7.3 103/ul Critically high 1.4-6.5 [facility] Comment on above: Performed By: #### E RUR #### [facility] [address] [place] [address] Dr. Helio Cee Neutrophils/100 WBC (Bld) 78.9 % Critically high 43.0- 75.0 [facility] Comment on above: Performed By: #### E RUR #### [facility] [address] [place] [address] Dr. Helio Cee Platelet mean volume (Bld) [ Entitic vol] 10.6 fL Normal 9.5-13.5 [facility] Comment on above: Performed By: #### E RUR #### [facility] [address] [place] [address] Dr. Helio Cee PLT 269 103/ul Normal 150-450 [facility] Comment on above: Performed By: #### E RUR #### [facility] [address] [address] [address] Helio Cee RBC 4.45 106/ul Normal 4.20-5.40 [facility] Comment on above: Performed By: #### E RUR #### [facility] [address] [place], [place] [address] Dr. Helio Cee WBC 9.2 103/ul Normal 4.0-11.0 [facility] Comment on above: Performed By: #### E RUR #### [facility] [address] [address] [address] Helio Cee LIPID PROFILEon 04-21-2022 CHOL-HDL RATIO NORM SEE BELOW Normal [facility] Comment on above: Result Comment: 3.3 - 4.4 LOW RISK 4.4 - 7.1 AVERAGE RISK 7.1 - 11.0 MODERATE RISK >11.0 HIGH RISK Performed By: #### T SH, LIPID, CMP ####[facility] [address] [address]Dr. Helio Cee Cholesterol [Mass/Vol] 146 mg/dL Normal <=200 [facility] Comment on above: Performed By: #### T CAITLIN, LIPID, CMP ####[facility] [address] [address]Dr. Helio Cee Cholesterol in HDL [Mass/Vol] 63 mg/dL Critically high 4 0-60 [facility] Comment on above: Performed By: #### T SH, LIPID, CMP ####[facility] [address] [id number]. Helio Cee Cholesterol in LDL [Mass/Vol] 66.6 mg/dL Normal [facility] Comment on above: Performed By: #### T SH, LIPID, CMP ####[facility] [address] [address]Dr. Helio Cee Cholesterol.total/Cholestero l in HDL [Mass ratio] 2.3 {ratio} Normal [facility] Comment on above: Performed By: #### T SH, LIPID, CMP ####[facility] [address] [id number]. Helio Cee HDL NORMAL > or = 60 mg/dl - LO W CARDIOVASCULAR RISK <40 mg/dl - HIGH CARDIOVASCULAR RISK Normal [facility] Comment on above: Performed By: #### T CAITLIN, LIPID, CMP ####[facility] [address] [address]Dr. Helio Cee LDL CALC NORMAL SEE BELOW Normal [facility] Comment on above: Result Comment: <100 mg/dl OPTIMAL 100 - 129 mg/dl NEAR OR ABOVE OPTIMAL 130 - 159 mg/dl BORDERLINE HIGH 160 - 189 mg/dl HIGH >190 mg/dl VERY HIGH Performed By: #### T CAITLIN, LIPID, CMP ####[facility] [address] [address]Dr. Helio Cee Triglyceride [Mass/Vol] 82 mg/dL Normal <=150 [facility] Comment on above: Performed By: #### T CAITLIN, LIPID, CMP ####[facility] [address] [address]Dr. Helio Cee VLDL CALC 16.4 mg/dL Normal [facility] Comment on above: Performed By: #### T CAITLIN, LIPID, CMP ####[facility] [id number] [place], [place] [address]Dr. Helio Cee PROF 14(COMP METB)on 022 Albumin [Mass/Vol] 3.5 g/dL Normal 3.4-5.0 [facility] Comment on above: Performed By: #### T CAITLIN, LIPID, CMP ####[facility] [address] [address]Dr. Helio Cee Albumin/Globulin [Mass ratio] 1.0 {ratio} Normal [facility] Comment on above: Performed By: #### T CAITLIN, LIPID, CMP ####[facility] [address] [address]Dr. Helio Cee ALP [Catalytic activity/Vol] 98 U/L Normal 46-116 [facility] Comment on above: Performed By: #### T CAITLIN, LIPID, CMP ####[facility] [address] [id number]. Helio Cee ALT [Catalytic activity/Vol] 23 U/L Normal 14-59 [facility] Comment on above: Performed By: #### T CAITLIN, LIPID, CMP ####[facility] [address] [address]Dr. Helio Cee Anion gap [Moles/Vol] 12.2 mmol/L Normal [facility] Comment on above: Performed By: #### T CAITLIN, LIPID, CMP ####[facility] [address] [address]Dr. Helio Cee AST [Catalytic activity/Vol] 15 U/L Normal 15-37 [facility] Comment on above: Performed By: #### T CAITLIN, LIPID, CMP ####[facility] [address] [address]Dr. Helio Cee Bilirubin [Mass/Vol] 0.5 mg/dL Normal 0.2-1.0 [facility] Comment on above: Performed By: #### T CAITLIN, LIPID, CMP ####[facility] [address] [address]Dr. Helio Cee Calcium [Mass/Vol] 9.0 mg/dL Normal 8.5-10.1 [facility] Comment on above: Performed By: #### T CAITLIN, LIPID, CMP ####[facility] [address] [id number]. Helio Cee Chloride [Moles/Vol] 109 mmol/L Critically high 98-107 [facility] Comment on above: Performed By: #### T CAITLIN, LIPID, CMP ####[facility] [address] [place] [address]Dr. Helio Cee CO2 [Moles/Vol] 26.5 mmol/L Normal 21.0-32.0 [facility] Comment on above: Performed By: #### T CAITLIN, LIPID, CMP ####[facility] [address] [place] [address]Dr. Helio Cee Creatinine [Mass/Vol] 1.22 mg/dL Critically high 0.55-1.02 [facility] Comment on above: Performed By: #### T SH, LIPID, CMP ####[facility] [address] [place] [address]Dr. Helio Cee EGFR-AF CANADIAN 52 mL/min/1.73m2 Critically low >=60 [facility] Comment on above: Performed By: #### T SH, LIPID, CMP ####[facility] [address] [place] [address]Dr. Claudettemagan Cee EGFR-NON AF CANADIAN 43 mL/min/1.73m2 Critically low >=60 [facility] Comment on above: Performed By: #### T SH, LIPID, CMP ####[facility] [address] [place], [place] [address]Dr. Helio Cee Globulin (S) [Mass/Vol] 3.4 g/dL Normal [facility] Comment on above: Performed By: #### T SH, LIPID, CMP ####[facility] [address] [place], [place] [address]Dr. Helio Cee Glucose [Mass/Vol] 103 mg/dL Normal 74-106 [facility] Comment on above: Performed By: #### T SH, LIPID, CMP ####[facility] [address] [place], [place] [address]Dr. Claudettemagan Cee Potassium [Moles/Vol] 4.7 mmol/L Normal 3.5-5.1 [facility] Comment on above: Performed By: #### T SH, LIPID, CMP ####[facility] [address] [place], [place] [address]Dr. Helio Cee Protein [Mass/Vol] 6.9 g/dL Normal 6.4-8.2 [facility] Comment on above: Performed By: #### T SH, LIPID, CMP ####[facility] [address] [place], [place] [address]Dr. Helio Cee Sodium [Moles/Vol] 143 mmol/L Normal 136-145 [facility] Comment on above: Performed By: #### T SH, LIPID, CMP ####[facility] [address] [place], [place] [id number]. Helio Cee Urea nitrogen [Mass/Vol] 22.0 mg/dL Critically high 7.0-18 .0 [facility] Comment on above: Performed By: #### T CAITLIN, LIPID, CMP ####[facility] [address] [place] [address]Dr. Helio Cee Urea nitrogen/Creatinine [Mass ratio] 18.0 mg/mg Normal [facility] Comment on above: Performed By: #### T CAITLIN, LIPID, CMP ####[facility] Wy[address] [place], [place] [address]Dr. Helio Cee TSHon 04-21-2022 TSH 0.592 uIU/mL Normal 0.358-3.740 [facility] Comment on above: Performed By: #### T CAITLIN, LIPID, CMP ####[facility] [address] [place], [place] [address]Dr. Helio Cee UA RANDOM W/MICROSCOPICon BACTERIA NONE SEEN Normal NONE SEEN [facility] Comment on above: Performed By: #### U AMIC ####[facility] [address] [place], [place] [address]Dr. Helio Cee Bilirubin Ql (U) Negative Normal NEGATIVE [facility] Comment on above: Performed By: #### U AMIC ####[facility] [address]pre[address] [place], [place] [address]Dr. Helio Cee CAST NONE SEEN Normal NONE SEEN [facility] Comment on above: Performed By: #### U AMIC ####[facility] [address] [place], [place] [address]Dr. Helio Cee Clarity (U) CLEAR Normal CLEAR [facility] Comment on above: Performed By: #### U AMIC ####[facility] [address] [place], [place] [address]Dr. Helio Cee Color (U) DK. YELLOW Normal YELLOW [facility] Comment on above: Performed By: #### U AMIC ####[facility] Pnfr[address]ju[address] [place], [place] [address]Dr. Helio Cee Crystals LM Nom (Urine sed) NONE SEEN Normal NONE SEE N [facility] Comment on above: Performed By: #### U AMIC ####[facility] [address] [place] [address]Dr. Helio Cee Epithelial cells LM Ql (Urine sed) RARE Normal N ONE SEEN /RARE [facility] Comment on above: Performed By: #### U AMIC ####[facility] [address] [place] [address]Dr. Helio Cee Glucose Ql (U) Negative Normal NEGATIVE [facility] Comment on above: Performed By: #### U AMIC ####[facility] [address]fr[address] [place], [place] [address]Dr. Helio Cee Hemoglobin Ql (U) Negative Normal NEGATIVE The [facility] Comment on above: Performed By: #### U AMIC ####[facility] [address] [place], [place] [address]Dr. Helio Cee Ketones Ql (U) Negative Normal NEGATIVE [facility] Comment on above: Performed By: #### U AMIC ####[facility] [address] [place], [place] [address]Dr. Helio Cee LEUKOCYTES Negative Normal NEGATIVE [facility] Comment on above: Performed By: #### U AMIC ####[facility] [address] [place] [id number]. Helio Cee MUCOUS TRACE Abnormal NONE SEEN [facility] Comment on above: Performed By: #### U AMIC ####[facility] [address] [place], [place] [address]Dr. Helio Cee Nitrite Ql (U) Negative Normal NEGATIVE [facility] Comment on above: Performed By: #### U AMIC ####[facility] [address] [place], [place] [address]Dr. Helio Cee pH (U) 5.5 [pH] Normal 5-9 [facility] Comment on above: Performed By: #### U AMIC ####[facility] [address] [place], [place] [address]Dr. Helio Cee RBC 0-2 Normal 0-2 [facility] Comment on above: Performed By: #### U AMIC ####[facility] [address] [place], [place] [address]Kn. Helio Cee SPEC GRAVITY >=1.030 Abnormal 1.005-<=1.025 The [facility] Comment on above: Performed By: #### U AMIC ####[facility] [address] [place] [id number]. Helio Cee UA PROTEIN TRACE Normal NEGATIVE/ TRACE The [facility] Comment on above: Performed By: #### U AMIC ####[facility] [address] [place], [place] [address]Hj. Helio Cee Urobilinogen Qn (U) 1.0 {Nevaeh'U}/dL Normal 0.2 - 1. 0 [facility] Comment on above: Performed By: #### U AMIC ####[facility] [address] [place] [address]Dr. Helio Cee WBC NONE SEEN Normal NONE SEEN [facility] Comment on above: Performed By: #### U AMIC ####[facility] [address] [place] [id number]. Helio Cee CT CHEST WO CONon 02-22-2022 CT CHEST WO CON EXAMINATION: CT CHES T WO CON HISTORY: Localized enlarged lymph nodes ; follow-up pneumonia COMPARISON: CTA chest 11/22/2021 TECHNIQUE: Axial, Coronal, and Sagittal images were created without the administration of IV contrast material. Dose reduction techniques were achieved by using automated exposure control and/or adjustment of mA and/or kV according to patient size and/or use of iterative reconstruction technique. FINDINGS: LUNGS: Numerous patchy opacities scattered within left lung. Moderate emphysematous changes. PLEURA: No mass, effusion, or pneumothorax. VASCULATURE: No abnormality. SOUTH: No mass or adenopathy. MEDIASTINUM: No mass or adenopathy. CARDIAC: No enlargement or pericardial thickening. AORTA: No aneurysm or dissection. CHEST WALL: No mass or axillary adenopathy. BONES: Multilevel degenerative disc disease of the cervical, thoracic, and lumbar spine. No appreciable fracture or bone lesion. LIMITED ABDOMEN: No suspicious findings. Limited images of the upper abdomen. OTHER: Negative. IMPRESSION: 1. Multifocal mild-moderate infiltrates within left lung favoring pneumonia; improved compared to prior study. Consider follow-up imaging in 2-3 months to document continued clearing. Electronically authenticated by: EHSAN MILLER Date: 2022-02-22 16:51 Normal [facility] HEMOGLOBINon 02-22-2022 Hemoglobin (Bld) [Mass/Vol] 13.6 g/dL Normal 12.0-16. 0 [facility] Comment on above: Performed By: #### V [id number] #### [facility] [address] [place] [address] Dr. Helio Cee XR TIB_FIB RT 2Von 2 XR TIB_FIB RT 2V EXAM: XR TIB_FIB RT 2V HISTORY: Pain COMPARISON: None. TECHNIQUE: Knee x-ray 09/28/2019 FINDINGS: IMPRESSION: There is a questionable minimally angulated fracture of the fibular head. The remainder of the osseous structures are unremarkable. Joint spaces are normal for patient's age. Chondrocalcinosis pyrophosphate deposition of the menisci. Small plantar calcaneal enthesophyte. Electronically authenticated by: BRENT LONG Date: 2022-01-07 21:52 Normal [facility] BNPon 11-22-2021 Natriuretic peptide B (Bld) [Mass/Vol] 1469.0 pg/mL Critically high <=900.0 The [facility] Comment on above: Performed By: #### C VDTBH #### [facility] [address] [place] [address] Dr. Helio Cee CBC AUTO DIFFon 11-22-2021 BASO # 0.1 103/ul Normal 0.0-0.1 [facility] Comment on above: Performed By: #### E RUR #### [facility] [address] [place] [address] Dr. Helio Cee Basophils/100 WBC (Bld) 0.7 % Normal 0.2-2.0 [facility] Comment on above: Performed By: #### E RUR #### [facility] [address] [place], [place] [id number] Dr. Helio Cee EO # 0.2 103/ul Normal 0.0-0.7 [facility] Comment on above: Performed By: #### E RUR #### [facility] [address] [place] [address] Dr. Helio Cee Eosinophils/100 WBC (Bld) 1.9 % Normal 0.9-7.0 [facility] Comment on above: Performed By: #### E RUR #### [facility] [address] [place] [address] Dr. Helio Cee Erythrocyte distribution wid th (RBC) [Ratio] 14.3 % Normal 11.0-15.0 [facility] Comment on above: Performed By: #### E RUR #### [facility] [address] [place] [address] Dr. Helio Cee Hematocrit (Bld) [Volume fraction] 37.9 % Normal 3 6.0-48.0 [facility] Comment on above: Performed By: #### E RUR #### [facility] [address] [place] [address] Dr. Helio Cee Hemoglobin (Bld) [Mass/Vol] 12.0 g/dL Normal 12.0-16. 0 [facility] Comment on above: Performed By: #### E RUR #### [facility] [address] [place] [address] Dr. Helio Cee IG # 0.10 10e3/ul Critically high 0.00-0.03 [facility] Comment on above: Performed By: #### E RUR #### [facility] [address] [place] [address] Dr. Helio Cee IG % 1.1 % Critically high 0.0-0.5 [facility] Comment on above: Performed By: #### E RUR #### [facility] [address] [place] [address] Dr. Helio Cee LYMPH # 0.9 103/ul Critically low 1.2-3.8 [facility] Comment on above: Performed By: #### E RUR #### [facility] [address] [place] [address] Dr. Helio Cee Lymphocytes/100 WBC (Bld) 10.1 % Critically low 20.5-6 0.0 [facility] Comment on above: Performed By: #### E RUR #### [facility] [address] [place] [address] Dr. Helio Cee MANUAL DIFF REQ NO Normal [facility] Comment on above: Performed By: #### E RUR #### [facility] [address] [place] [address] Dr. Helio Cee MCH (RBC) [Entitic mass] 29.8 pg Normal 26.7-34.0 [facility] Comment on above: Performed By: #### E RUR #### [facility] [address] [place] [address] Dr. Helio Cee MCHC (RBC) [Mass/Vol] 31.7 g/dL Normal 29.9-35.2 [facility] Comment on above: Performed By: #### E RUR #### [facility] [address] [place] [address] Dr. Helio Cee MCV (RBC) [Entitic vol] 94.0 fL Normal 81.0-99.0 [facility] Comment on above: Performed By: #### E RUR #### [facility] [address] [place] [address] Dr. Helio Cee MONO # 0.7 103/ul Normal 0.3-0.8 [facility] Comment [facility]: Performed By: #### E RUR #### [facility] [address] [place] [address] Dr. Helio Cee Monocytes/100 WBC (Bld) 7.8 % Normal 1.7-12.0 [facility] Comment on above: Performed By: #### E RUR #### [facility] [address] [place] [address] Dr. Helio Cee NEUT # 7.2 103/ul Critically high 1.4-6.5 [facility] Comment on above: Performed By: #### E RUR #### [facility] [address] [place] [address] [address] Helio Cee Neutrophils/100 WBC (Bld) 78.4 % Critically high 43.0- 75.0 [facility] Comment on above: Performed By: #### E RUR #### [facility] [address] [place] [address] [address] Helio Cee Platelet mean volume (Bld) [ Entitic vol] 10.6 fL Normal 9.5-13.5 [facility] pital Comment on above: Performed By: #### E RUR #### [facility] [address] [place] [address] Dr. Helio Cee PLT 278 103/ul Normal 150-450 [facility] Comment on above: Performed By: #### E RUR #### [facility] [address] [place] [address] Dr. Helio Cee RBC 4.03 106/ul Critically low 4.20-5.40 [facility] Comment on above: Performed By: #### E RUR #### [facility] [address] [place] [address] Dr. Helio Cee WBC 9.1 103/ul Normal 4.0-11.0 [facility] Comment on above: Performed By: #### E RUR #### [facility] [address] [place] [address] Dr. Helio Cee CTA CHEST WO W CONon -12-2 022 CTA CHEST WO W CON CT SCAN OF THE CHEST WITH CONTRAST FOR CT PULMONARY ANGIOGRAPHY, 11/22/2021, 3:22 PM EDT: COMPARISON: CT scan of the chest, 02/17/2020 CLINICAL HISTORY: SHORTNESS OF BREATH with exertion for 3 to 4 weeks, pneumonia, and weight gain. TECHNIQUE: 3 mm axial images performed through the chest following intravenous administration of 100 mL of Omnipaque 300. 3 mm sagittal and coronal MPR and 8 coronal and sagittal MIP (maximum intensity projection) CTA reconstructions performed through the chest. Dose reduction techniques were achieved by using automated exposure control and/or adjustment of mA and/or kV according to patient size and/or use of iterative reconstruction technique. FINDINGS: No acute PE is identified. Main pulmonary artery and thoracic aorta normal caliber size. Mild cardiomegaly with some minimal atherosclerotic calcific changes of coronary arterial vasculature. No significant pericardial effusion. Some nonenlarged and mildly enlarged reactive left hilar lymph nodes. Moderately sized hiatus hernia present. Moderate centrilobular emphysema redemonstrated. Some new groundglass opacity seen in the left upper and left lower lobe. Tiny trace of left pleural effusion. Minimal atelectasis in the right lung base. Mild left adrenal hyperplasia redemonstrated. Some age-related pancreatic atrophy. Upper abdomen is otherwise unremarkable. Dextroconvex scoliosis of the thoracic spine with kyphotic curvature. Anterior interbody fusion T10-T11 level redemonstrated. Multilevel degenerative changes of the visualized spine. IMPRESSION: 1. No acute PE is identified. Main pulmonary artery and thoracic aorta normal caliber size. 2. Mild cardiomegaly with minimal atherosclerotic calcific changes of coronary arterial vasculature. No significant pericardial effusion. 3. Some new groundglass opacity seen in the left upper and left lower lobe concerning for inflammatory or infectious pneumonitis. Tiny trace of left pleural effusion. 4. Moderate degree of emphysema redemonstrated. 5. Some mildly reactive left hilar lymph nodes. 6. Moderate hiatus hernia. Electronically authenticated by: Jay BARAHONA Date: 2021-11-22 16:47 Normal [facility] CULTURE BLOODon 11-22-2021 Microscopic examination of blood, culture Culture Observations: NO GROWTH AT 5 DAYS. Normal [facility] Comment on above: Performed By: #### B [id number] ####[facility] [address] [place], [place] [address]QmDr. Helio Cee Microscopic examination of blood, culture Culture Observations: NO GROWTH AT 5 DAYS. Normal The [facility] Comment on above: Performed By: #### B [id number] #### [facility] [address] [place], [place] [address] Dr. Helio Cee Covid-19 PCR ([facility])on 11-11 SARS-CoV-2 (COVID-19) RNA KIMMY+probe Ql (Unsp spec) Not detected Normal NOT DETECTED The [facility] Comment on above: Result Comment: When diagnostic testing is negative, the possibility of a false negative should be considered in the context of a patient's recent exposures and the presence of clinical signs and symptoms consistent with SARS-CoV-2. This test is not yet approved or cleared by the [place] FDA. When there are no FDA-approved or cleared tests available, and other criteria are met, FDA can make tests available under an emergency access mechanism called an Emergency Use Authorization (EUA). The EUA for this test is supported by the Director Of Events of Health and Human Service's declaration that circumstances exist to justify the emergency use of in vitro diagnostics for the detection and/or diagnosis of the virus that causes COVID-19. This EUA will remain in effect for the duration of the COVID-19 declaration justifying emergency of IVDs, unless it is terminated or revoked by the FDA (after which the test may no longer be used). Performed By: #### C VDTBH #### [facility] [address] [place] [address] Dr. Helio Cee LACTATE/LACTIC ACIDon 2021 Lactate [Moles/Vol] mmol/L Critically low 0.4-1.9 [facility] Comment on above: Performed By: #### L ACT ####[facility] [address] [place] [address]Dr. Helio Cee PROF 14(COMP METB)on 022 Albumin [Mass/Vol] 3.1 g/dL Critically low 3.4-5.0 [facility] Comment on above: Performed By: #### V [id number] #### [facility] [address] [place] [address] Dr. Helio Cee Albumin/Globulin [Mass ratio] 0.8 {ratio} Normal [facility] Comment on above: Performed By: #### V [id number] #### [facility] [address] [place] [address] Dr. Helio Cee ALP [Catalytic activity/Vol] 92 U/L Normal 46-116 [facility] Comment on above: Performed By: #### V [id number] #### [facility] [address] [place] [address] Dr. Helio Cee ALT [Catalytic activity/Vol] 23 U/L Normal 14-59 [facility] Comment on above: Performed By: #### V [id number] #### [facility] [address] [place] [address] [address] Helio Cee Anion gap [Moles/Vol] 12.8 mmol/L Normal Th [facility] Comment on above: Performed By: #### V [id number] #### [facility] [address] [place] [address] [address] Helio Cee AST [Catalytic activity/Vol] 16 U/L Normal 15-37 [facility] Comment on above: Performed By: #### V [id number] #### [facility] [address] [place] [address] [address] Helio Cee Bilirubin [Mass/Vol] 0.6 mg/dL Normal 0.2-1.0 [facility] Comment on above: Performed By: #### V [id number] #### [facility] [address] [place] [address] [address] Helio Cee Calcium [Mass/Vol] 9.5 mg/dL Normal 8.5-10.1 [facility] Comment on above: Performed By: #### V [id number] #### [facility] [address] [place] [address] Dr. Helio Cee Chloride [Moles/Vol] 106 mmol/L Normal 98-107 [facility] Comment on above: Performed By: #### V [id number] #### [facility] [address] [place] [address] [address] Helio Cee CO2 [Moles/Vol] 25.1 mmol/L Normal 21.0-32.0 [facility] Comment on above: Performed By: #### V [id number] #### [facility] [address] [place] [address] [address] Helio Cee Creatinine [Mass/Vol] 1.06 mg/dL Critically high 0.55-1.02 [facility] Comment on above: Performed By: #### V [id number] #### [facility] [address] [place] [address] [address] Helio Cee EGFR-AF CANADIAN >60 Normal >=60 [facility] Comment on above: Performed By: #### V [id number] #### [facility] [address] [place] [address] [address] Helio Cee EGFR-NON AF CANADIAN 51 mL/min/1.73m2 Critically low >=60 [facility] Comment on above: Performed By: #### V [id number] #### [facility] [address] [place] [address] [address] Helio Cee Globulin (S) [Mass/Vol] 4.1 g/dL Normal T [facility] Comment on above: Performed By: #### V [id number] #### [facility] [address] [place] [address] [address] Helio Cee Glucose [Mass/Vol] 99 mg/dL Normal 74-106 [facility] Comment on above: Performed By: #### V [id number] #### [facility] [address] [place] [address] [address] Helio Cee Potassium [Moles/Vol] 3.9 mmol/L Normal 3.5-5.1 [facility] Comment on above: Performed By: #### V [id number] #### [facility] [address] [place] [address] [address] Helio Cee Protein [Mass/Vol] 7.2 g/dL Normal 6.4-8.2 [facility] Comment on above: Performed By: #### V [id number] #### [facility] [address] [place] [address] [address] Helio Cee Sodium [Moles/Vol] 140 mmol/L Normal 136-145 [facility] Comment on above: Performed By: #### V [id number] #### [facility] [address] [place] [address] [address] Helio Cee Urea nitrogen [Mass/Vol] 15.0 mg/dL Normal 7.0-18.0 [facility] Comment on above: Performed By: #### V [id number] #### [facility] [address] [place] [address] [address] Helio Cee Urea nitrogen/Creatinine [Mass ratio] 14.2 mg/mg Normal [facility] Comment on above: Performed By: #### V [id number] #### [facility] [address] [place] [address] [address] Helio Cee TROPONIN, HIGH SENSITIVITYon 11-22-2021 HSTROP 11.6 pg/mL Normal 4.0-51.3 [facility] Comment on above: Result Comment: CUT- OFF POINTS HAVE BEEN ESTABLISHED BASED ON THE FOURTH UNIVERSAL DEFINITIONS OF MYOCARDIAL INFARCTION. THE UPPER REFERENCE LIMIT (URL) OF TROPONIN, DEFINED THE 99TH PERCENTILE OF cTnI DISTRIBUTION IN A REFERENCE POPULATION, HAS BEEN CONFIRMED THE DECISION THRESHOLD FOR [place] DIAGNOSIS. Performed By: #### V [id number] #### [facility] [address] [address] [address] Helio Cee XR CHEST 2 Von 11-22-2021 XR CHEST 2 V EXAM: XR CHEST 2 V HISTORY: SHORTNESS OF BREATH COMPARISON: 11/20/2021 TECHNIQUE: Upright PA and lateral chest x-ray FINDINGS: The heart is enlarged with vascular congestion. Perihilar infiltrate on the left is again noted, possibly with an additional infiltrate at the left lung base. There is no evidence of an effusion or pneumothorax. The osseous structures are grossly intact. IMPRESSION: Cardiomegaly with vascular congestion. Infiltrates are again noted in the left lung, and the overall appearance of the chest is essentially unchanged. Electronically authenticated by: ISAC CONNOR Date: 2021-11-22 14:20 Normal [facility] BNPon 11-21-2021 Natriuretic peptide B (Bld) [Mass/Vol] 953.0 pg/mL Critically high <=900.0 The [facility] pital Comment on above: Performed By: #### E RUR #### [facility] [address] [place] [address] [address] Helio Cee CBC AUTO DIFFon 11-21-2021 BASO # 0.0 103/ul Normal 0.0-0.1 [facility] Comment on above: Performed By: #### E RUR #### [facility] [address] [place] [address] [address] Helio Cee Basophils/100 WBC (Bld) 0.4 % Normal 0.2-2.0 [facility] [facility] Comment on above: Performed By: #### E RUR #### [facility] [address] [place] [address] Dr. Helio Cee EO # 0.1 103/ul Normal 0.0-0.7 [facility] Comment on above: Performed By: #### E RUR #### [facility] [address] [place] [address] Dr. Helio Cee Eosinophils/100 WBC (Bld) 1.1 % Normal 0.9-7.0 [facility] Comment on above: Performed By: #### E RUR #### [facility] [address] [place] [address] Dr. Helio Cee Erythrocyte distribution wid th (RBC) [Ratio] 14.6 % Normal 11.0-15.0 [facility] Comment on above: Performed By: #### E RUR #### [facility] [address] [place] [address] Dr. Helio Cee Hematocrit (Bld) [Volume fraction] 35.2 % Critically low 36.0-48.0 [facility] Comment on above: Performed By: #### E RUR #### [facility] [address] [place] [address] Dr. Helio Cee Hemoglobin (Bld) [Mass/Vol] 10.9 g/dL Critically low 12.0 -16.0 [facility] Comment on above: Performed By: #### E RUR #### [facility] [address] [place] [address] Dr. Helio Cee IG # 0.07 10e3/ul Critically high 0.00-0.03 [facility] Comment on above: Performed By: #### E RUR #### [facility] [address] [place] [address] Dr. Helio Cee IG % 0.7 % Critically high 0.0-0.5 [facility] Comment on above: Performed By: #### E RUR #### [facility] [address] [place] [address] Dr. Hleio Cee LYMPH # 1.4 103/ul Normal 1.2-3.8 [facility] Comment on above: Performed By: #### E RUR #### [facility] [address] [place] [address] Dr. Helio Cee Lymphocytes/100 WBC (Bld) 13.3 % Critically low 20.5-6 0.0 [facility] Comment on above: Performed By: #### E RUR #### [facility] [address] [place] [address] Dr. Helio Cee MANUAL DIFF REQ NO Normal [facility] Comment on above: Performed By: #### E RUR #### [facility] [address] [place] [address] Dr. Helio Cee MCH (RBC) [Entitic mass] 29.5 pg Normal 26.7-34.0 [facility] Comment on above: Performed By: #### E RUR #### [facility] [address] [place] [address] Dr. Helio Cee MCHC (RBC) [Mass/Vol] 31.0 g/dL Normal 29.9-35.2 [facility] Comment on above: Performed By: #### E RUR #### [facility] [address] [place] [address] Dr. Helio Cee MCV (RBC) [Entitic vol] 95.4 fL Normal 81.0-99.0 [facility] Comment on above: Performed By: #### E RUR #### [facility] [address] [place] [address] Dr. Helio Cee MONO # 0.8 103/ul Normal 0.3-0.8 [facility] Comment on above: Performed By: #### E RUR #### [facility] [address] [place] [address] Dr. Helio Cee Monocytes/100 WBC (Bld) 7.3 % Normal 1.7-12.0 [facility] Comment on above: Performed By: #### E RUR #### [facility] [address] [place] [address] Dr. Helio Cee NEUT # 7.9 103/ul Critically high 1.4-6.5 [facility] Comment on above: Performed By: #### E RUR #### [facility] [address] [place] [address] Dr. Helio Cee Neutrophils/100 WBC (Bld) 77.2 % Critically high 43.0- 75.0 [facility] Comment on above: Performed By: #### E RUR #### [facility] [address] [place] [address] Dr. Helio Cee Platelet mean volume (Bld) [ Entitic vol] 11.1 fL Normal 9.5-13.5 [facility] Comment on above: Performed By: #### E RUR #### [facility] [address] [place] [address] Dr. Helio Cee PLT 245 103/ul Normal 150-450 [facility] Comment on above: Performed By: #### E RUR #### [facility] [address] [place] [address] Dr. Helio Cee RBC 3.69 106/ul Critically low 4.20-5.40 [facility] Comment on above: Performed By: #### E RUR #### [facility] [address] [place] [address] Dr. Helio Cee WBC 10.2 103/ul Normal 4.0-11.0 [facility] Comment on above: Performed By: #### E RUR #### [facility] [address] [place] [address] Dr. Helio Cee PROF 14(COMP METB)on 022 Albumin [Mass/Vol] 2.6 g/dL Critically low 3.4-5.0 [facility] Comment on above: Performed By: #### V [id number] #### [facility] [address] [place] [address] Dr. Helio Cee Albumin/Globulin [Mass ratio] 0.7 {ratio} Normal [facility] Comment on above: Performed By: #### V [id number] #### [facility] [address] [address] [address] Helio Cee ALP [Catalytic activity/Vol] 75 U/L Normal 46-116 [facility] Comment on above: Performed By: #### V [id number] #### [facility] [address] [place] [address] Dr. Helio Cee ALT [Catalytic activity/Vol] 19 U/L Normal 14-59 [facility] Comment on above: Performed By: #### V [id number] #### [facility] [address] [place] [address] Dr. Helio Cee Anion gap [Moles/Vol] 11.7 mmol/L Normal [facility] Comment on above: Performed By: #### V [id number] #### [facility] [address] [place] [address] Dr. Helio Cee AST [Catalytic activity/Vol] 8 U/L Critically low 15- 37 [facility] Comment on above: Performed By: #### V [id number] #### [facility] [address] [place] [address] Dr. Helio Cee Bilirubin [Mass/Vol] 0.3 mg/dL Normal 0.2-1.0 [facility] Comment on above: Performed By: #### V [id number] #### [facility] [address] [place] [address] Dr. Helio Cee Calcium [Mass/Vol] 9.0 mg/dL Normal 8.5-10.1 [facility] Comment on above: Performed By: #### V [id number] #### [facility] [address] [place] [address] Dr. Helio Cee Chloride [Moles/Vol] 107 mmol/L Normal 98-107 [facility] Comment on above: Performed By: #### V [id number] #### [facility] [address] [place] [address] Dr. Helio Cee CO2 [Moles/Vol] 24.7 mmol/L Normal 21.0-32.0 [facility] Comment on above: Performed By: #### V [id number] #### [facility] [address] [place] [address] Dr. Helio Cee Creatinine [Mass/Vol] 0.91 mg/dL Normal 0.55-1.02 [facility] Comment on above: Performed By: #### V [id number] #### [facility] [address] [place] [address] Dr. Helio Cee EGFR-AF CANADIAN >60 Normal >=60 [facility] Comment on above: Performed By: #### V [id number] #### [facility] [address] [address] [address] Helio Cee EGFR-NON AF CANADIAN 60 mL/min/1.73m2 Normal >=60 [facility] Comment on above: Performed By: #### V [id number] #### [facility] [address] [place] [address] Dr. Helio Cee Globulin (S) [Mass/Vol] 3.9 g/dL Normal [facility] Comment on above: Performed By: #### V [id number] #### [facility] [address] [place] [address] Dr. Helio Cee Glucose [Mass/Vol] 131 mg/dL Critically high 74-106 [facility] Comment on above: Performed By: #### V [id number] #### [facility] [address] [place] [address] Dr. Helio Cee Potassium [Moles/Vol] 3.4 mmol/L Critically low 3.5-5.1 [facility] Comment on above: Performed By: #### V [id number] #### [facility] [address] [place] [address] Dr. Helio Cee Protein [Mass/Vol] 6.5 g/dL Normal 6.4-8.2 [facility] Comment on above: Performed By: #### V [id number] #### [facility] [address] [place] [address] Dr. Helio Cee Sodium [Moles/Vol] 140 mmol/L Normal 136-145 [facility] Comment on above: Performed By: #### V [id number] #### [facility] [address] [place] [address] Dr. Helio Cee Urea nitrogen [Mass/Vol] 14.0 mg/dL Normal 7.0-18.0 [facility] Comment on above: Performed By: #### V [id number] #### [facility] [address] [place] [address] Dr. Helio Cee Urea nitrogen/Creatinine [Mass ratio] 15.4 mg/mg Normal [facility] Comment on above: Performed By: #### V [id number] #### [facility] [address] [place] [address] Dr. Helio Cee BNPon 11-20-2021 Natriuretic peptide B (Bld) [Mass/Vol] 781.0 pg/mL Normal <=900.0 [facility]oh Comment on above: Performed By: #### E RUR #### [facility] [address] [place] [address] Dr. Helio Cee CBC AUTO DIFFon 11-20-2021 BASO # 0.0 103/ul Normal 0.0-0.1 [facility] Comment on above: Performed By: #### V [id number] #### [facility] [address] [place] [address] Dr. Helio Cee Basophils/100 WBC (Bld) 0.3 % Normal 0.2-2.0 [facility] Comment on above: Performed By: #### V [id number] #### [facility] [address] [place] [address] Dr. Helio Cee EO # 0.1 103/ul Normal 0.0-0.7 [facility] Comment on above: Performed By: #### V [id number] #### [facility] [address] [place] [address] Dr. Helio Cee Eosinophils/100 WBC (Bld) 0.5 % Critically low 0.9-7. 0 [facility] Comment on above: Performed By: #### V [id number] #### [facility] [address] [place] [address] Dr. Helio Cee Erythrocyte distribution wid th (RBC) [Ratio] 14.5 % Normal 11.0-15.0 [facility] p[facility] Comment on above: Performed By: #### V [id number] #### [facility] [address] [address] [address] Helio Cee Hematocrit (Bld) [Volume fraction] 36.6 % Normal 3 6.0-48.0 [facility] Comment on above: Performed By: #### V [id number] #### [facility] [address] [place] [address] Dr. Helio Cee Hemoglobin (Bld) [Mass/Vol] 11.5 g/dL Critically low 12.0 -16.0 [facility] Comment on above: Performed By: #### V [id number] #### [facility] [address] [place] [address] Dr. Helio Cee IG # 0.07 10e3/ul Critically high 0.00-0.03 [facility] Comment on above: Performed By: #### V [id number] #### [facility] [address] [place] [address] Dr. Helio Cee IG % 0.5 % Normal 0.0-0.5 [facility] Comment on above: Performed By: #### V [id number] #### [facility] [address] [place] [address] Dr. Helio Cee LYMPH # 1.2 103/ul Normal 1.2-3.8 [facility] Comment on above: Performed By: #### V [id number] #### [facility] [address] [place] [address] Dr. Helio Cee Lymphocytes/100 WBC (Bld) 9.5 % Critically low 20.5-6 0.0 [facility] Comment on above: Performed By: #### V [id number] #### [facility] [address] [place] [address] Dr. Helio Cee MANUAL DIFF REQ NO Normal [facility] Comment on above: Performed By: #### V [id number] #### [facility] [address] [place] [address] Dr. Helio Cee MCH (RBC) [Entitic mass] 30.2 pg Normal 26.7-34.0 [facility] Comment on above: Performed By: #### V [id number] #### [facility] [address] [place] [address] Dr. Helio Cee MCHC (RBC) [Mass/Vol] 31.4 g/dL Normal 29.9-35.2 [facility] Comment on above: Performed By: #### V [id number] #### [facility] [address] [place] [address] Dr. Helio Cee MCV (RBC) [Entitic vol] 96.1 fL Normal 81.0-99.0 [facility] Comment on above: Performed By: #### V [id number] #### [facility] [address] [place] [address] Dr. Helio Cee MONO # 0.7 103/ul Normal 0.3-0.8 [facility] Comment on above: Performed By: #### V [id number] #### [facility] [address] [place] [address] Dr. Helio Cee Monocytes/100 WBC (Bld) 5.7 % Normal 1.7-12.0 [facility] Comment on above: Performed By: #### V [id number] #### [facility] [address] [place] [address] Dr. Helio Cee NEUT # 10.8 103/ul Critically high 1.4-6.5 [facility] Comment on above: Performed By: #### V [id number] #### [facility] [address] [place] [address] Dr. Helio Cee Neutrophils/100 WBC (Bld) 83.5 % Critically high 43.0- 75.0 [facility] Comment on above: Performed By: #### V [id number] #### [facility] [address] [place] [address] Dr. Helio Cee Platelet mean volume (Bld) [ Entitic vol] 11.1 fL Normal 9.5-13.5 [facility] Comment on above: Performed By: #### V [id number] #### [facility] [address] [place] [address] Dr. Helio Cee PLT 231 103/ul Normal 150-450 [facility] Comment on above: Performed By: #### V [id number] #### [facility] [address] [address] [address] Helio Cee RBC 3.81 106/ul Critically low 4.20-5.40 [facility] Comment on above: Performed By: #### V [id number] #### [facility] [address] [address] [address] Helio Cee WBC 13.0 103/ul Critically high 4.0-11.0 [facility] Comment on above: Performed By: #### V [id number] #### [facility] [address] [place] [address] Dr. Helio Cee PROF 14(COMP METB)on 022 Albumin [Mass/Vol] 2.9 g/dL Critically low 3.4-5.0 [facility] Comment on above: Performed By: #### E RUR #### [facility] [address] [place] [address] Dr. Helio Cee Albumin/Globulin [Mass ratio] 0.8 {ratio} Normal [facility] Comment on above: Performed By: #### E RUR #### [facility] [address] [place] [address] Dr. Helio Cee ALP [Catalytic activity/Vol] 81 U/L Normal 46-116 [facility] Comment on above: Performed By: #### E RUR #### [facility] [address] [place] [address] Dr. Helio Cee ALT [Catalytic activity/Vol] 21 U/L Normal 14-59 [facility] Comment on above: Performed By: #### E RUR #### [facility] [address] [place] [address] Dr. Helio Cee Anion gap [Moles/Vol] 12.4 mmol/L Normal [facility] Comment on above: Performed By: #### E RUR #### [facility] [address] [place] [address] Dr. Helio Cee AST [Catalytic activity/Vol] 11 U/L Critically low 15- 37 [facility] Comment on above: Performed By: #### E RUR #### [facility] [address] [address] [address] Helio Cee Bilirubin [Mass/Vol] 0.4 mg/dL Normal 0.2-1.0 [facility] Comment on above: Performed By: #### E RUR #### [facility] [address] [address] [address] Helio Cee Calcium [Mass/Vol] 8.7 mg/dL Normal 8.5-10.1 [facility] Comment on above: Performed By: #### E RUR #### [facility] [address] [place] [address] Dr. Helio Cee Chloride [Moles/Vol] 108 mmol/L Critically high 98-107 [facility] Comment on above: Performed By: #### E RUR #### [facility] [address] [place] [address] Dr. Helio Cee CO2 [Moles/Vol] 24.2 mmol/L Normal 21.0-32.0 [facility] Comment on above: Performed By: #### E RUR #### [facility] [address] [place] [address] Dr. Helio Cee Creatinine [Mass/Vol] 1.03 mg/dL Critically high 0.55-1.02 [facility] Comment on above: Performed By: #### E RUR #### [facility] [address] [place] [address] Dr. Helio Cee EGFR-AF CANADIAN >60 Normal >=60 [facility] Comment on above: Performed By: #### E RUR #### [facility] [address] [place] [address] Dr. Helio Cee EGFR-NON AF CANADIAN 52 mL/min/1.73m2 Critically low >=60 [facility] Comment on above: Performed By: #### E RUR #### [facility] [address] [place] [address] Dr. Helio Cee Globulin (S) [Mass/Vol] 3.5 g/dL Normal [facility] Comment on above: Performed By: #### E RUR #### [facility] [address] [address] [address] Helio Cee Glucose [Mass/Vol] 142 mg/dL Critically high 74-106 [facility] Comment on above: Performed By: #### E RUR #### [facility] [address] [address] [address] Helio Cee Potassium [Moles/Vol] 3.6 mmol/L Normal 3.5-5.1 [facility] Comment on above: Performed By: #### E RUR #### [facility] [address] [address] [address] Helio Cee Protein [Mass/Vol] 6.4 g/dL Normal 6.4-8.2 [facility] Comment on above: Performed By: #### E RUR #### [facility] [address] [address] [address] Helio Cee Sodium [Moles/Vol] 141 mmol/L Normal 136-145 [facility] Comment on above: Performed By: #### E RUR #### [facility] [address] [address] [address] Helio Cee Urea nitrogen [Mass/Vol] 19.0 mg/dL Critically high 7.0-18 .0 [facility] Comment on above: Performed By: #### E RUR #### [facility] [address] [address] [address] Helio Cee Urea nitrogen/Creatinine [Mass ratio] 18.4 mg/mg Normal [facility] Comment on above: Performed By: #### E RUR #### [facility] [id number] Helio Cee XR CHEST 2 Von 11-20-2021 XR CHEST 2 V EXAM: XR CHEST 2 V INDICATION: Cough, shortness of breath. Subsequent imaging for pneumonia. COMPARISON: 11/18/2021 TECHNIQUE: Two views of the chest FINDINGS: Stable enlarged cardiac silhouette. No significant change of left perihilar interstitial and airspace opacities. No pleural effusion or pneumothorax. No acute osseous abnormality. Mild to moderate degenerative changes of the thoracic spine. Partially imaged posterior fusion in the lumbar spine. IMPRESSION: No significant interval change of left lung infiltrates. Electronically authenticated by: EUN BARRY Date: 2021-11-20 07:56 Normal [facility] BNPon 11-19-2021 Natriuretic peptide B (Bld) [Mass/Vol] 777.0 pg/mL Normal <=900.0 [facility]oh Comment on above: Performed By: #### E RUR #### [facility] [address] [place] [address] Dr. Helio Cee CBC AUTO DIFFon 11-19-2021 BASO # 0.0 103/ul Normal 0.0-0.1 [facility] Comment on above: Performed By: #### V [id number] #### [facility] [address] [place] [address] Dr. Helio Cee Basophils/100 WBC (Bld) 0.2 % Normal 0.2-2.0 [facility] Comment on above: Performed By: #### V [id number] #### [facility] [address] [place] [address] Dr. Helio Cee EO # 0.1 103/ul Normal 0.0-0.7 [facility] Comment on above: Performed By: #### V [id number] #### [facility] [address] [place] [address] Dr. Helio Cee Eosinophils/100 WBC (Bld) 0.5 % Critically low 0.9-7. 0 [facility] Comment on above: Performed By: #### V [id number] #### [facility] [address] [place] [address] Dr. Helio Cee Erythrocyte distribution wid th (RBC) [Ratio] 14.6 % Normal 11.0-15.0 [facility] Comment on above: Performed By: #### V [id number] #### [facility] [address] [place] [address] Dr. Helio Cee Hematocrit (Bld) [Volume fraction] 37.4 % Normal 3 6.0-48.0 [facility] Comment on above: Performed By: #### V [id number] #### [facility] [address] [address] [address] Helio Cee Hemoglobin (Bld) [Mass/Vol] 11.5 g/dL Critically low 12.0 -16.0 [facility] Comment on above: Performed By: #### V [id number] #### [facility] [address] [address] [address] Helio Cee IG # 0.07 10e3/ul Critically high 0.00-0.03 [facility] Comment on above: Performed By: #### V [id number] #### [facility] [address] [place] [address] Dr. Helio Cee IG % 0.5 % Normal 0.0-0.5 [facility] Comment on above: Performed By: #### V [id number] #### [facility] [address] [place] [address] Dr. Helio Cee LYMPH # 1.1 103/ul Critically low 1.2-3.8 [facility] Comment on above: Performed By: #### V [id number] #### [facility] [address] [place] [address] Dr. Helio Cee Lymphocytes/100 WBC (Bld) 6.8 % Critically low 20.5-6 0.0 [facility] Comment on above: Performed By: #### V [id number] #### [facility] [address] [address] [address] Helio eCe MANUAL DIFF REQ NO Normal [facility] Comment on above: Performed By: #### V [id number] #### [facility] [address] [address] [address] Helio Cee MCH (RBC) [Entitic mass] 30.1 pg Normal 26.7-34.0 [facility] Comment on above: Performed By: #### V [id number] #### [facility] [address] [place] [address] Dr. Helio Cee MCHC (RBC) [Mass/Vol] 30.7 g/dL Normal 29.9-35.2 [facility] Comment on above: Performed By: #### V [id number] #### [facility] [address] [place] [address] Dr. Helio Cee MCV (RBC) [Entitic vol] 97.9 fL Normal 81.0-99.0 [facility] Comment on above: Performed By: #### V [id number] #### [facility] [address] [place] [address] Dr. Helio Cee MONO # 0.8 103/ul Normal 0.3-0.8 [facility] Comment on above: Performed By: #### V [id number] #### [facility] [address] [place] [address] Dr. Helio Cee Monocytes/100 WBC (Bld) 5.3 % Normal 1.7-12.0 [facility] Comment on above: Performed By: #### V [id number] #### [facility] [address] [place] [address] Dr. Helio Cee NEUT # 13.3 103/ul Critically high 1.4-6.5 [facility] Comment on above: Performed By: #### V [id number] #### [facility] [address] [place] [address] Dr. Helio Cee Neutrophils/100 WBC (Bld) 86.7 % Critically high 43.0- 75.0 [facility] Comment on above: Performed By: #### V [id number] #### [facility] [address] [place] [address] Dr. Helio Cee Platelet mean volume (Bld) [ Entitic vol] 11.4 fL Normal 9.5-13.5 [facility] Comment on above: Performed By: #### V [id number] #### [facility] [address] [place] [address] Dr. Helio Cee PLT 215 103/ul Normal 150-450 [facility] Comment on above: Performed By: #### V [id number] #### [facility] [address] [place] [address] Dr. Helio Cee RBC 3.82 106/ul Critically low 4.20-5.40 [facility] Comment on above: Performed By: #### V [id number] #### [facility] [address] [place] [address] Dr. Helio Cee WBC 15.3 103/ul Critically high 4.0-11.0 [facility] Comment on above: Performed By: #### V [id number] #### [facility] [address] [place] [address] Dr. Helio Cee PROF 14(COMP METB)on 022 Albumin [Mass/Vol] 2.8 g/dL Critically low 3.4-5.0 [facility] Comment on above: Performed By: #### E RUR #### [facility] [address] [place] [address] Dr. Helio Cee Albumin/Globulin [Mass ratio] 0.8 {ratio} Normal [facility] Comment on above: Performed By: #### E RUR #### [facility] [address] [place] [address] Dr. Helio Cee ALP [Catalytic activity/Vol] 74 U/L Normal 46-116 [facility] Comment on above: Performed By: #### E RUR #### [facility] [address] [place] [address] Dr. Helio Cee ALT [Catalytic activity/Vol] 21 U/L Normal 14-59 [facility] Comment on above: Performed By: #### E RUR #### [facility] [address] [place] [address] Dr. Helio Cee Anion gap [Moles/Vol] 13.5 mmol/L Normal [facility] Comment on above: Performed By: #### E RUR #### [facility] [address] [place] [address] Dr. Helio Cee AST [Catalytic activity/Vol] 11 U/L Critically low 15- 37 [facility] Comment on above: Performed By: #### E RUR #### [facility] [address] [place] [address] Dr. Helio Cee Bilirubin [Mass/Vol] 0.5 mg/dL Normal 0.2-1.0 [facility] Comment on above: Performed By: #### E RUR #### [facility] [address] [place] [address] Dr. Helio Cee Calcium [Mass/Vol] 8.4 mg/dL Critically low 8.5-10.1 [facility] Comment on above: Performed By: #### E RUR #### [facility] [address] [place] [address] Dr. Helio Cee Chloride [Moles/Vol] 107 mmol/L Normal 98-107 [facility] Comment on above: Performed By: #### E RUR #### [facility] [address] [place] [address] Dr. Helio Cee CO2 [Moles/Vol] 21.0 mmol/L Normal 21.0-32.0 [facility] Comment on above: Performed By: #### E RUR #### [facility] [address] [place] [address] Dr. Helio Cee Creatinine [Mass/Vol] 1.07 mg/dL Critically high 0.55-1.02 [facility] Comment on above: Performed By: #### E RUR #### [facility] [address] [place] [address] Dr. Helio Cee EGFR-AF CANADIAN >60 Normal >=60 [facility] Comment on above: Performed By: #### E RUR #### [facility] [address] [place] [address] Dr. Helio Cee EGFR-NON AF CANADIAN 50 mL/min/1.73m2 Critically low >=60 [facility] Comment on above: Performed By: #### E RUR #### [facility] [address] [place] [address] Dr. Helio Cee Globulin (S) [Mass/Vol] 3.4 g/dL Normal [facility] Comment on above: Performed By: #### E RUR #### [facility] [address] [place] [address] Dr. Helio Cee Glucose [Mass/Vol] 109 mg/dL Critically high 74-106 [facility] Comment on above: Performed By: #### E RUR #### [facility] [address] [address] [address] Helio Cee Potassium [Moles/Vol] 3.5 mmol/L Normal 3.5-5.1 [facility] Comment on above: Performed By: #### E RUR #### [facility] [address] [address] [address] Helio Cee Protein [Mass/Vol] 6.2 g/dL Critically low 6.4-8.2 [facility] Comment on above: Performed By: #### E RUR #### [facility] [address] [address] [address] Helio Cee Sodium [Moles/Vol] 138 mmol/L Normal 136-145 [facility] Comment on above: Performed By: #### E RUR #### [facility] [address] [address] [address] Helio Cee Urea nitrogen [Mass/Vol] 25.0 mg/dL Critically high 7.0-18 .0 [facility] Comment on above: Performed By: #### E RUR #### [facility] [address] [place] [address] Dr. Helio Cee Urea nitrogen/Creatinine [Mass ratio] 23.4 mg/mg Normal [facility] Comment on above: Performed By: #### E RUR #### [facility] [address] [address] [address] Helio Cee BNPon 11-18-2021 Natriuretic peptide B (Bld) [Mass/Vol] 386.0 pg/mL Normal <=900.0 [facility] pital Comment on above: Performed By: #### B JUTE BAG CUTTING MACHINE OPERATOR, HSTROPN, BMP ####[facility] [id number] [address]Dr. Helio Cee CBC AUTO DIFFon 11-18-2021 BASO # 0.0 103/ul Normal 0.0-0.1 [facility] Comment on above: Performed By: #### V [id number] #### [facility] [address] [place] [address] Dr. Helio Cee Basophils/100 WBC (Bld) 0.3 % Normal 0.2-2.0 [facility] Comment on above: Performed By: #### V [id number] #### [facility] [address] [place] [address] Dr. Helio Cee EO # 0.0 103/ul Normal 0.0-0.7 [facility] Comment on above: Performed By: #### V [id number] #### [facility] [address] [place] [address] Dr. Helio Cee Eosinophils/100 WBC (Bld) 0.1 % Critically low 0.9-7. 0 [facility] Comment on above: Performed By: #### V [id number] #### [facility] [address] [place] [address] Dr. Helio Cee Erythrocyte distribution wid th (RBC) [Ratio] 14.4 % Normal 11.0-15.0 [facility] Comment on above: Performed By: #### V [id number] #### [facility] [address] [place] [address] Dr. Helio Cee Hematocrit (Bld) [Volume fraction] 43.6 % Normal 3 6.0-48.0 [facility] Comment on above: Performed By: #### V [id number] #### [facility] [address] [place] [address] Dr. Helio Cee Hemoglobin (Bld) [Mass/Vol] 13.4 g/dL Normal 12.0-16. 0 [facility] Comment on above: Performed By: #### V [id number] #### [facility] [address] [place] [address] Dr. Helio Cee IG # 0.03 10e3/ul Normal 0.00-0.03 [facility] Comment on above: Performed By: #### V [id number] #### [facility] [address] [place] [address] Dr. Helio Cee IG % 0.3 % Normal 0.0-0.5 [facility] Comment on above: Performed By: #### V [id number] #### [facility] [address] [address] [address] Helio Cee LYMPH # 0.4 103/ul Critically low 1.2-3.8 [facility] Comment on above: Performed By: #### V [id number] #### [facility] [address] [address] [address] Helio Cee Lymphocytes/100 WBC (Bld) 4.0 % Critically low 20.5-6 0.0 [facility] Comment on above: Performed By: #### V [id number] #### [facility] [address] [address] [address] Helio Cee MANUAL DIFF REQ NO Normal [facility] Comment on above: Performed By: #### V [id number] #### [facility] [address] [place] [address] Dr. Helio Cee MCH (RBC) [Entitic mass] 29.6 pg Normal 26.7-34.0 [facility] Comment on above: Performed By: #### V [id number] #### [facility] [address] [address] [address] Helio Cee MCHC (RBC) [Mass/Vol] 30.7 g/dL Normal 29.9-35.2 [facility] Comment on above: Performed By: #### V [id number] #### [facility] [address] [address] [address] Helio Cee MCV (RBC) [Entitic vol] 96.5 fL Normal 81.0-99.0 [facility] Comment on above: Performed By: #### V [id number] #### [facility] [address] [address] [address] Helio Cee MONO # 0.6 103/ul Normal 0.3-0.8 [facility] Comment on above: Performed By: #### V [id number] #### [facility] [address] [address] [address] Helio Cee Monocytes/100 WBC (Bld) 5.4 % Normal 1.7-12.0 [facility] Comment on above: Performed By: #### V [id number] #### [facility] [address] [address] [address] Helio Cee NEUT # 9.7 103/ul Critically high 1.4-6.5 [facility] Comment on above: Performed By: #### V [id number] #### [facility] [address] [place] [address] Dr. Helio Cee Neutrophils/100 WBC (Bld) 89.9 % Critically high 43.0- 75.0 [facility] Comment on above: Performed By: #### V [id number] #### [facility] [address] [place] [address] Dr. Helio Cee Platelet mean volume (Bld) [ Entitic vol] 10.9 fL Normal 9.5-13.5 [facility] Comment on above: Performed By: #### V [id number] #### [facility] [address] [place] [address] Dr. Helio Cee PLT 265 103/ul Normal 150-450 [facility] Comment on above: Performed By: #### V [id number] #### [facility] [address] [place] [address] Dr. Helio Cee RBC 4.52 106/ul Normal 4.20-5.40 [facility] Comment on above: Performed By: #### V [id number] #### [facility] [address] [place] [address] Dr. Helio Cee WBC 10.7 103/ul Normal 4.0-11.0 [facility] Comment on above: Performed By: #### V [id number] #### [facility] [address] [place] [address] Dr. Helio Cee CULTURE BLOODon 11-18-2021 Microscopic examination of blood, culture Culture Observations: NO GROWTH AT 5 DAYS. Normal [facility] Comment on above: Performed By: #### B [id number] #### [facility] [address] [place] [address] Dr. Helio Cee Microscopic examination of blood, culture Culture Observations: NO GROWTH AT 5 DAYS. Normal [facility] Comment on above: Performed By: #### B [id number] #### [facility] [address] [place] [address] Dr. Helio Cee Covid-19 PCR ([facility])on SARS-CoV-2 (COVID-19) RNA KIMMY+probe Ql (Unsp spec) Not detected Normal NOT DETECTED [facility] Comment on above: Result Comment: When diagnostic testing is negative, the possibility of a false negative should be considered in the context of a patient's recent exposures and the presence of clinical signs and symptoms consistent with SARS-CoV-2. This test is not yet approved or cleared by the [place] FDA. When there are no FDA-approved or cleared tests available, and other criteria are met, FDA can make tests available under an emergency access mechanism called an Emergency Use Authorization (EUA). The EUA for this test is supported by the [place] of Health and Human Service's declaration that circumstances exist to justify the emergency use of in vitro diagnostics for the detection and/or diagnosis of the virus that causes COVID-19. This EUA will remain in effect for the duration of the COVID-19 declaration justifying emergency of IVDs, unless it is terminated or revoked by the FDA (after which the test may no longer be used). Performed By: #### E RUR #### [facility] [address] [place] [address] Dr. Helio Cee ER URINE PROFILEon 2 Bilirubin Ql (U) Negative Normal NEGATIVE The [facility] Comment on above: Performed By: #### E RUR #### [facility] [address] [place] [address] Dr. Helio Cee Clarity (U) CLEAR Normal CLEAR [facility] Comment on above: Performed By: #### E RUR #### [facility] [address] [place] [address] Dr. Helio Cee Color (U) LT. YELLOW Normal YELLOW [facility] Comment on above: Performed By: #### E RUR #### [facility] [address] [place] [address] DrCarlos NAVARRETE A micrscopic examina tion will be performed if indicated. Normal The [facility] l Comment on above: Performed By: #### E RUR #### [facility] [address] [place] [address] Dr. Helio Cee Glucose Ql (U) Negative Normal NEGATIVE [facility] Comment on above: Performed By: #### E RUR #### [facility] [address] [place] [address] Dr. Helio Cee Hemoglobin Ql (U) Negative Normal NEGATIVE [facility] Comment on above: Performed By: #### E RUR #### [facility] [address] [place] [address] Dr. Helio Cee Ketones Ql (U) Negative Normal NEGATIVE [facility] Comment on above: Performed By: #### E RUR #### [facility] [address] [place] [address] Dr. Helio Cee LEUKOCYTES Negative Normal NEGATIVE [facility] Comment on above: Performed By: #### E RUR #### [facility] [address] [place] [address] Dr. Helio Cee Nitrite Ql (U) Negative Normal NEGATIVE [facility] Comment on above: Performed By: #### E RUR #### [facility] [address] [place] [address] Dr. Helio Cee pH (U) 5.5 [pH] Normal 5-9 [facility] Comment on above: Performed By: #### E RUR #### [facility] [address] [place] [address] Dr. Helio Cee SPEC GRAVITY 1.015 Normal 1.005-<=1.025 The [facility] Comment on above: Performed By: #### E RUR #### [facility] [address] [place] [address] Dr. Helio Cee UA PROTEIN Negative Normal NEGATIVE/ TRACE [facility] Comment on above: Performed By: #### E RUR #### [facility] [address] [place] [address] Dr. Helio Cee UR MICRO IND NOT INDICATED Normal [facility] Comment on above: Performed By: #### E RUR #### [facility] [address] [address] [address] Helio Cee Urobilinogen Qn (U) 0.2 {Nevaeh'U}/dL Normal 0.2 - 1. 0 [facility] Comment on above: Performed By: #### E RUR #### [facility] [address] [address] [address] Helio Cee PROF CHEM 8 (BAS METB)on Anion gap [Moles/Vol] 13.6 mmol/L Normal [facility] Comment on above: Performed By: #### B JUTE BAG CUTTING MACHINE OPERATOR, HSTROPN, BMP ####[facility] [address] [address]Dr. Helio Cee Calcium [Mass/Vol] 9.1 mg/dL Normal 8.5-10.1 [facility] Comment on above: Performed By: #### B JUTE BAG CUTTING MACHINE OPERATOR, HSTROPN, BMP ####[facility] [address] [address]Dr. Helio Cee Chloride [Moles/Vol] 110 mmol/L Critically high 98-107 [facility] Comment on above: Performed By: #### B JUTE BAG CUTTING MACHINE OPERATOR, HSTROPN, BMP ####[facility] [address] [address]Dr. Helio Cee CO2 [Moles/Vol] 22.9 mmol/L Normal 21.0-32.0 [facility] Comment on above: Performed By: #### B JUTE BAG CUTTING MACHINE OPERATOR, HSTROPN, BMP ####[facility] [address] [address]Dr. Helio Cee Creatinine [Mass/Vol] 1.47 mg/dL Critically high 0.55-1.02 [facility] Comment on above: Performed By: #### B JUTE BAG CUTTING MACHINE OPERATOR, HSTROPN, BMP ####[facility] [address] [address]Dr. Helio Cee EGFR-AF CANADIAN 42 mL/min/1.73m2 Critically low >=60 [facility] Comment on above: Performed By: #### B JUTE BAG CUTTING MACHINE OPERATOR, HSTROPN, BMP ####[facility] [address] [address]Dr. Helio Cee EGFR-NON AF CANADIAN 35 mL/min/1.73m2 Critically low >=60 [facility] Comment on above: Performed By: #### B JUTE BAG CUTTING MACHINE OPERATOR, HSTROPN, BMP ####[facility] [address] [address]Dr. Helio Cee Glucose [Mass/Vol] 120 mg/dL Critically high 74-106 [facility] Comment on above: Performed By: #### B JUTE BAG CUTTING MACHINE OPERATOR, HSTROPN, BMP ####[facility] [address] [place], [place] [address]Dr. Helio Cee Potassium [Moles/Vol] 3.5 mmol/L Normal 3.5-5.1 [facility] Comment on above: Performed By: #### B JUTE BAG CUTTING MACHINE OPERATOR, HSTROPN, BMP ####[facility] [address] [place], [place] [address]Dr. Helio Cee Sodium [Moles/Vol] 143 mmol/L Normal 136-145 [facility] Comment on above: Performed By: #### B JUTE BAG CUTTING MACHINE OPERATOR, HSTROPN, BMP ####[facility] [address] [place], [place] [address]Dr. Helio Cee Urea nitrogen [Mass/Vol] 29.0 mg/dL Critically high 7.0-18 .0 [facility] Comment on above: Performed By: #### B JUTE BAG CUTTING MACHINE OPERATOR, HSTROPN, BMP ####[facility] [address] [address]Dr. Claudettemagan Cee Urea nitrogen/Creatinine [Mass ratio] 19.7 mg/mg Normal [facility] Comment on above: Performed By: #### B JUTE BAG CUTTING MACHINE OPERATOR, HSTROPN, BMP ####[facility] [address] [address]Dr. Helio Cee TROPONIN, HIGH SENSITIVITYon 11-18-2021 HSTROP 8.2 pg/mL Normal 4.0-51.3 [facility] Comment on above: Result Comment: CUT- OFF POINTS HAVE BEEN ESTABLISHED BASED ON THE FOURTH UNIVERSAL DEFINITIONS OF MYOCARDIAL INFARCTION. THE UPPER REFERENCE LIMIT (URL) OF TROPONIN, DEFINED THE 99TH PERCENTILE OF cTnI DISTRIBUTION IN A REFERENCE POPULATION, HAS BEEN CONFIRMED THE DECISION THRESHOLD FOR [place] DIAGNOSIS. Performed By: #### B JUTE BAG CUTTING MACHINE OPERATOR, HSTROPN, BMP ####[facility] [address] [place], [place] [address]PaDr. Helio Cee XR CHEST 1 Von 11-18-2021 XR CHEST 1 V EXAMINATION: XR CHES T 1 V HISTORY: COUGH COMPARISON: No relevant comparison available. FINDINGS: LUNGS: Mild opacity within the upper and mid left lung. Right lung is grossly clear. VASCULATURE: No increased pulmonary vasculature. PLEURA: No pneumothorax, effusion, or pleural thickening. CARDIAC: No cardiomegaly or cardiac silhouette abnormality. MEDIASTINUM: No visible mass or adenopathy. BONES: No fracture or visible bone lesion. OTHER: Negative. IMPRESSION: 1. Mild left pulmonary infiltrates; suspect pneumonia versus unilateral pulmonary edema. Electronically authenticated by: EHSAN MILLER Date: 2021-11-18 10:38 Normal [facility] BNPon 10-25-2021 Natriuretic peptide B (Bld) [Mass/Vol] 396.0 pg/mL Normal <=900.0 [facility] pital Comment on above: Performed By: #### V [id number] #### [facility] [address] [address] [address] Helio Cee CBC AUTO DIFFon 10-25-2021 BASO # 0.1 103/ul Normal 0.0-0.1 [facility] Comment on above: Performed By: #### E RUR #### [facility] [address] [place], [place] [address] Dr. Helio Cee Basophils/100 WBC (Bld) 1.0 % Normal 0.2-2.0 [facility] Comment on above: Performed By: #### E RUR #### [facility] [address] [place], [place] [address] Dr. Helio Cee EO # 0.2 103/ul Normal 0.0-0.7 [facility] Comment on above: Performed By: #### E RUR #### [facility] [address] [place] [address] Dr. Helio Cee Eosinophils/100 WBC (Bld) 2.7 % Normal 0.9-7.0 [facility] Comment on above: Performed By: #### E RUR #### [facility] [address] [place] [address] Dr. Helio Cee Erythrocyte distribution wid th (RBC) [Ratio] 14.6 % Normal 11.0-15.0 [facility] Comment on above: Performed By: #### E RUR #### [facility] [address] [place] [address] Dr. Helio Cee Hematocrit (Bld) [Volume fraction] 44.8 % Normal 3 6.0-48.0 [facility] Comment on above: Performed By: #### E RUR #### [facility] [address] [place] [address] Dr. Helio Cee Hemoglobin (Bld) [Mass/Vol] 13.8 g/dL Normal 12.0-16. 0 [facility] Comment on above: Performed By: #### E RUR #### [facility] [address] [place] [address] Dr. Helio Cee IG # 0.03 10e3/ul Normal 0.00-0.03 [facility] Comment on above: Performed By: #### E RUR #### [facility] [address] [place] [address] Dr. Helio Cee IG % 0.3 % Normal 0.0-0.5 [facility] Comment on above: Performed By: #### E RUR #### [facility] [address] [place] [address] Dr. Helio Cee LYMPH # 1.6 103/ul Normal 1.2-3.8 [facility] Comment on above: Performed By: #### E RUR #### [facility] [address] [place] [address] Dr. Helio Cee Lymphocytes/100 WBC (Bld) 18.5 % Critically low 20.5-6 0.0 [facility] Comment on above: Performed By: #### E RUR #### [facility] [address] [place] [address] Dr. Helio Cee MANUAL DIFF REQ NO Normal [facility] Comment on above: Performed By: #### E RUR #### [facility] [address] [place] [address] Dr. Helio Cee MCH (RBC) [Entitic mass] 29.9 pg Normal 26.7-34.0 [facility] Comment on above: Performed By: #### E RUR #### [facility] [address] [place] [address] Dr. Helio Cee MCHC (RBC) [Mass/Vol] 30.8 g/dL Normal 29.9-35.2 [facility] Comment on above: Performed By: #### E RUR #### [facility] [address] [place] [address] Dr. Helio Cee MCV (RBC) [Entitic vol] 97.2 fL Normal 81.0-99.0 [facility] Comment on above: Performed By: #### E RUR #### [facility] [address] [place] [address] Dr. Helio Cee MONO # 0.6 103/ul Normal 0.3-0.8 [facility] Comment on above: Performed By: #### E RUR #### [facility] [address] [place] [address] Dr. Helio Cee Monocytes/100 WBC (Bld) 7.0 % Normal 1.7-12.0 [facility] Comment on above: Performed By: #### E RUR #### [facility] [address] [place] [address] Dr. Heloi Cee NEUT # 6.1 103/ul Normal 1.4-6.5 [facility] Comment on above: Performed By: #### E RUR #### [facility] [address] [place] [address] Dr. Helio Cee Neutrophils/100 WBC (Bld) 70.5 % Normal 43.0-75.0 [facility] Comment on above: Performed By: #### E RUR #### [facility] [address] [address] [address] Helio Cee Platelet mean volume (Bld) [ Entitic vol] 11.0 fL Normal 9.5-13.5 [facility] Comment on above: Performed By: #### E RUR #### [facility] [address] [address] [address] Helio Cee PLT 292 103/ul Normal 150-450 [facility] Comment on above: Performed By: #### E RUR #### [facility] [address] [address] [address] Helio Cee RBC 4.61 106/ul Normal 4.20-5.40 [facility] Comment on above: Performed By: #### E RUR #### [facility] [address] [address] [address] Helio Cee WBC 8.6 103/ul Normal 4.0-11.0 [facility] Comment on above: Performed By: #### E RUR #### [facility] [address] [place] [address] Dr. Helio Cee ECHOCARDIO M/2D COMPLETEon 0 10-25-2021 ECHOCARDIO M/2D COMPLETE Patient: AARON JAY Exam Date: 10/25/2021 : 1945 Gender:F Ordering : DR JEREMIAH REED M.D. Admission #: [id number] Family : Order #: [id number] CLICK HERE TO VIEW EXAM ECHOCARDIOGRAM REPORT PROCEDURE: CARDIO PULMONARY ECHOCARDIO M/2D COMP INDICATIONS: Dyspnea on exertion COMPARISON: None. DESCRIPTION: COMPLETE ECHOCARDIOGRAM Real-time transthoracic echocardiography with 2D, M-mode, spectral and color flow Doppler performed. QUALITY: Technical quality was good. LEFT VENTRICLE: Normal chamber size. Borderline concentric left ventricular hypertrophy. Global left ventricular systolic function is normal. LV EF: Calculated left ventricular ejection fraction is 56%. DIASTOLIC: Normal diastolic function. ATRIAL SEPTUM: LEFT ATRIUM: Normal chamber size. RIGHT ATRIUM: Normal chamber size. RIGHT VENTRICLE: Normal chamber size. Normal right ventricular systolic function. TRICUSPID VALVE: Normal mobility and thickness. No stenosis with mild regurgitation. Mild pulmonary hypertension. RVSP 38 mmHg. MITRAL VALVE: Normal mobility. Mildly increased leaflet thickness. No mitral valve prolapse. No evidence of mitral valve stenosis. There is no mitral annular calcification. Trivial mitral regurgitation. AORTIC VALVE: Normal trileaflet appearance. No visible sclerosis. Normal leaflet mobility. No evidence of aortic valve stenosis. DVI 0.7No aortic regurgitation. AORTIC ROOT: Normal diameter and appearance. PULMONIC VALVE: Normal thickness and mobility. No stenosis. No regurgitation. PERICARDIUM: No evidence of pericardial effusion. IVC: Collapses with inspirations. Normal size. PLEURA: CONCLUSION: 1. Ventricular systolic function is normal. LVEF is 55 to 60%. 2. Normal diastolic function. 3. No significant valvular dysfunction. 4. Mildly elevated right-sided pressures. 5. No pericardial effusion. Adult Echocardiography Procedure Report Left Ventricle LVEDD (3.7 - 5.6 cm): 4.48 cm LVESD (2.2 - 4.0 cm): 3.14 cm LVIVS thickness (0.6 - 1.2 cm): 1.05 cm LVPW thickness (0.5 - 1.0 cm): 1.11 cm e': 12.20 cm/s E - e': 8.10 LVOT Area (cm2): 3.46 cm2 LVOT Diameter 2.10 cm Left Ventricular Ejection Fraction: 55-60 % Left Atrium LA Volume Index (2D A2C): 18.90 ml/m2 Left Atrium Systolic Dimension: 3.60 cm Left Atrium Systolic Area(A2C): 15.30 cm2 Left Atrium Systolic Area(A4C): 20.40 cm2 Left Atrium Systolic Volume(A2C): 04706 mm3 Left Atrium Systolic Volume(A4C): 77256 mm3 Mitral Valve MV E to A Ratio: 0.80 Deceleration [place]: 4670 mm/s2 Mitral Valve A-Wave Peak Velocity: 121.00 cm/s Mitral Valve E-Wave Peak Velocity: 98.70 cm/s Right Ventricle RV Internal Diastolic Dimension: 3.58 cm Aorta AO Root Diam: 3.00 cm Aortic Valve AoV Area (Peak Jani): 2.28 cm2 Aortic Valve Cusp Separation: 2.10 cm Peak Velocity(Antegrade Flow): 153.00 cm/s Peak Gradient(Antegrade Flow): 9 mm[Hg] Tricuspid Valve Peak Velocity (Regurgitant Flow): 255.00 cm/s, 271.00 cm/s Pulmonic Valve Peak Velocity: 107.00 cm/s Peak Gradient: 5 mm[Hg] Right Atrium Dictated by: Johnson Cheema M.D. on 10/25/2021 at 19:27 Approved by: Johnson Cheema M.D. on 10/25/2021 at 19:31 Normal [facility] MAMM SCREEN 3D EBONI CADon 10-25-2021 MG MAMM SCREEN 3D EBONI CAD Patient: AARON JJ Exam Date: 10/25/2021 : 1945 Gender:F Ordering : DR JEREMIAH REED M.D. Admission #: [id number] Family : Order #: [id number] CLICK HERE TO VIEW EXAM RADIOLOGY REPORT PROCEDURE: MAMMOGRAM SCREENING 3D BILATERAL CAD COMPARISON: MAMM SCREEN EBONI W CAD, 02/17/2020. MAMM SCREEN EBONI W CAD, 10/10/2018. INDICATIONS: Screening mammography Calculator Name NCI Breast Cancer Risk Assessment Tool 5 Year Breast Cancer Risk 4.90% Lifetime Breast Cancer Risk 11.00% Personal Breast Cancer No Personal Ovarian Cancer No Treatments Hysterectomy Family Cancers Mother with breast cancer at age 50; Aunt-maternal with breast cancer at age 70. LOCATION: [facility] BREAST COMPOSITION: Heterogeneously dense,which may obscure small masses. FINDINGS: DIAGNOSTIC CATEGORY 2--BENIGN FINDING: RIGHT BREAST: No significant suspicious finding. Scattered benign-appearing nodules are present. No significant change has occurred. LEFT BREAST: No significant suspicious finding. No significant change has occurred. RECOMMENDATIONS: ROUTINE MAMMOGRAM AND CLINICAL EVALUATION IN 12 MONTHS. PLEASE NOTE: A NORMAL MAMMOGRAM DOES NOT EXCLUDE THE POSSIBILITY OF BREAST CANCER. A CLINICALLY SUSPICIOUS PALPABLE LUMP SHOULD BE BIOPSIED. Dictated by: Ehsan Miller M.D. on 10/25/2021 at 15:29 Approved by: Ehsan Miller M.D. on 10/25/2021 at 15:33 Normal [facility] sara PROF 14(COMP METB)on 022 Albumin [Mass/Vol] 3.8 g/dL Normal 3.4-5.0 [facility] Comment on above: Performed By: #### V [id number] #### [facility] [address] [place] [address] Dr. Helio Cee Albumin/Globulin [Mass ratio] 1.1 {ratio} Normal [facility] Comment on above: Performed By: #### V [id number] #### [facility] [address] [address] [address] Helio Cee ALP [Catalytic activity/Vol] 97 U/L Normal 46-116 [facility] Comment on above: Performed By: #### V [id number] #### [facility] [address] [address] [address] Helio Cee ALT [Catalytic activity/Vol] 31 U/L Normal 14-59 [facility] Comment on above: Performed By: #### V [id number] #### [facility] [address] [place] [address] Dr. Helio Cee Anion gap [Moles/Vol] 11.0 mmol/L Normal [facility] Comment on above: Performed By: #### V [id number] #### [facility] [address] [address] [address] Helio Cee AST [Catalytic activity/Vol] 13 U/L Critically low 15- 37 [facility] Comment on above: Performed By: #### V [id number] #### [facility] [address] [place] [address] Dr. Helio Cee Bilirubin [Mass/Vol] 0.4 mg/dL Normal 0.2-1.0 [facility] Comment on above: Performed By: #### V [id number] #### [facility] [address] [address] [address] Helio Cee Calcium [Mass/Vol] 9.3 mg/dL Normal 8.5-10.1 [facility] Comment on above: Performed By: #### V [id number] #### [facility] [address] [address] [address] Helio Cee Chloride [Moles/Vol] 108 mmol/L Critically high 98-107 [facility] Comment on above: Performed By: #### V [id number] #### [facility] [address] [address] [address] Helio Cee CO2 [Moles/Vol] 28.4 mmol/L Normal 21.0-32.0 [facility] Comment on above: Performed By: #### V [id number] #### [facility] [address] [address] [address] Helio Cee Creatinine [Mass/Vol] 1.09 mg/dL Critically high 0.55-1.02 [facility] Comment on above: Performed By: #### V [id number] #### [facility] [address] [address] [address] Helio Cee EGFR-AF CANADIAN 59 mL/min/1.73m2 Critically low >=60 [facility] Comment on above: Performed By: #### V [id number] #### [facility] [address] [address] [address] Helio Cee EGFR-NON AF CANADIAN 49 mL/min/1.73m2 Critically low >=60 [facility] Comment on above: Performed By: #### V [id number] #### [facility] [address] [address] [address] Helio Cee Globulin (S) [Mass/Vol] 3.4 g/dL Normal [facility] Comment on above: Performed By: #### V [id number] #### [facility] [address] [address] [address] Helio Cee Glucose [Mass/Vol] 100 mg/dL Normal 74-106 [facility] Comment on above: Performed By: #### V [id number] #### [facility] [address] [address] [address] Helio Cee Potassium [Moles/Vol] 4.4 mmol/L Normal 3.5-5.1 [facility] Comment on above: Performed By: #### V [id number] #### [facility] [address] [address] [address] Helio Cee Protein [Mass/Vol] 7.2 g/dL Normal 6.4-8.2 [facility] Comment on above: Performed By: #### V [id number] #### [facility] [address] [address] [address] Helio Cee Sodium [Moles/Vol] 143 mmol/L Normal 136-145 [facility] Comment on above: Performed By: #### V [id number] #### [facility] [address] [address] [address] Helio Cee Urea nitrogen [Mass/Vol] 24.0 mg/dL Critically high 7.0-18 .0 [facility] Comment on above: Performed By: #### V [id number] #### [facility] [address] [address] [address] Helio Cee Urea nitrogen/Creatinine [Mass ratio] 22.0 mg/mg Normal [facility] Comment on above: Performed By: #### V [id number] #### [facility] [address] [place] [address] Dr. Helio Cee TSHon 10-25-2021 TSH 0.635 uIU/mL Normal 0.358-3.740 [facility] Comment on above: Performed By: #### V [id number] #### [facility] [address] [place] [address] Dr. Helio Cee Vital Signs Date Time Vital Sign Value Performing Clinician Facility 04-13-2023 14:40-0500 Hourly Rounding [facility] 04-13-2023 14:40-0500 Promise to Return [facility] 04-13-2023 13:00-0500 Diastolic blood pressure 77 mm[Hg] [facility] 04-13-2023 13:00-0500 Heart rate 78 /min [facility] 04-13-2023 13:00-0500 Hourly Rounding [facility] 04-13-2023 13:00-0500 Promise to Return [facility] 04-13-2023 13:00-0500 Respiratory rate 16 /min [facility] 04-13-2023 13:00-0500 Systolic blood pressure 127 mm[Hg] [facility] 04-13-[facility] 12:13-0500 Heart rate 80 /min [facility] 04-13-2023 12:13-0500 SaO2% (BldA) [Mass fraction] 95 % [facility] 04-13-2023 12:12-0500 Body temperature 97.16 [degF] [facility] 04-13-2023 12:11-0500 Diastolic blood pressure 78 mm[Hg] hari [facility] 04-13-2023 12:11-0500 Mean blood pressure 94 mm[Hg] [facility] 04-13-2023 12:11-0500 Systolic blood pressure 125 mm[Hg] [facility] 04-13-2023 12:00-0500 Hourly Rounding [facility] 04-13-2023 12:00-0500 Promise to Return [facility] 04-13-2023 09:10-0500 Diastolic blood pressure 70 mm[Hg] [facility] 04-13-2023 09:10-0500 Heart rate 87 /min [facility] 04-13-2023 09:10-0500 Mean blood pressure 90 mm[Hg] hari [facility] 04-13-2023 09:10-0500 Respiratory rate 17 /min [facility] 04-13-2023 09:10-0500 Systolic blood pressure 130 mm[Hg] [facility] 04-13-2023 08:00-0500 SaO2% (BldA) [Mass fraction] 93 % [facility] 04-13-2023 07:29-0500 Heart rate 89 /min [facility] 04-13-2023 07:29-0500 SaO2% (BldA) [Mass fraction] 94 % [facility] 04-13-2023 07:29-0500 Mean blood pressure 88 mm[Hg] [facility] 04-13-2023 07:29-0500 Body temperature 97.88 [degF] kittyag [facility] 04-13-2023 05:00-0500 Blood Pressure Location [facility] 04-13-2023 05:00-0500 Heart rate 95 /min [facility] 04-13-2023 05:00-0500 Mean blood pressure 100 mm[Hg] [facility] 04-13-2023 00:18-0500 Blood Pressure Location [facility] 04-13-2023 00:18-0500 Body temperature 97.52 [degF] [facility] 04-12-2023 20:33-0500 Body temperature 97.34 [degF] [facility] 04-12-2023 20:33-0500 Mean blood pressure 88 mm[Hg] [facility] 04-12-2023 18:03-0500 Blood Pressure Location [facility] 04-12-2023 16:49-0500 Respiratory rate 22 /min [facility] 04-12-2023 15:00-0500 Respiratory rate 20 /min [facility] 04-12-2023 12:24-0500 gluc 88 mg/dL [facility] 04-12-2023 12:24-0500 gluc [facility] 04-12-2023 12:19-0500 Body temperature 97.7 [degF] [facility] 03-29-2023 15:30-0500 Body height 161.29 cm Jeremiah Reed Other [employer] Other 03-29-2023 15:30-0500 Body mass index (BMI) [Ratio] 37.14 kg/m2 Jeremiah Reed Other [employer] Other 03-29-2023 15:30-0500 Body weight 96.62 kg Jeremiah Reed Other [employer] Other 03-29-2023 15:30-0500 Diastolic blood pressure 85 mm[Hg] Jeremiah Reed Other [employer] Other 03-29-2023 15:30-0500 Systolic blood pressure 144 mm[Hg] Jeremiah Reed Other [employer] Other 06-21-2022 14:42-0500 Blood Pressure Location BRENDAPRATIMA SOLIMANRY [facility] Encounters Encounter Date Encounter Type Care Provider Facility Start: 04-17-2023 End: 04-17-2023 ambulatory Jeremiah Reed Other [employer] Other Start: 04-17-2023 Telephone encounter Jeremiah Reed [facility] Start: 04-13-2023 End: 04-13-2023 ambulatory Ray Fofana Other [facility] [employer] Other Start: 04-13-2023 Telephone encounter Ray Fofana [facility] Start: 04-12-2023 End: 04-13-2023 ambulatory Ehsan Blair Facility:[facility] Start: 04-12-2023 End: 04-13-2023 Observation Efrain Kurtz [facility] Start: 04-09-2023 End: 04-10-2023 ambulatory [facility] Start: 03-30-2023 End: 03-30-2023 ambulatory Jeremiah Reed Other [employer] Other Start: 03-30-2023 Telephone encounter Jeremiah Derek [facility] Start: 03-29-2023 End: 03-29-2023 ambulatory Jeremiah Reed Other [employer] Other Start: 03-29-2023 Transitional care manage srvc 14 day discharge Jeremiah Reed [facility] Start: 03-05-2023 End: 03-06-2023 ambulatory Drake Delatorre MD Facility:[facility] Start: 02-05-2023 End: 02-06-2023 ambulatory [facility] Start: 01-08-2023 End: 01-09-2023 ambulatory [facility] Start: 12-25-2022 End: 12-26-2022 ambulatory [facility] Start: 09-01-2022 End: 09-02-[address] JEREMIAH REED Facility:[facility] Start: 08-29-2022 End: 08-30-2022 ambulatory BARBARA WAGNERMIPATHY . Facility:[facility] Start: 08-21-2022 End: 08-22-[address] EHSAN MILLER Facility:[facility] Start: 08-10-2022 End: 08-11-2022 ambulatory BRENT MALDONADO Facility:[facility] Start: 06-21-2022 End: 06-22-2022 ambulatory [facility] Start: 06-21-2022 End: 06-21-2022 Patient encounter procedure BRENDA MARIN [facility] Start: 06-12-2022 End: 06-13-[address] EHSAN MILLER Facility:[facility] Start: 05-11-2022 End: 05-12-[address] FELISHA RAMOS . Facility:[facility] Start: 04-21-2022 End: 04-22-[address] JEREMIAH REED Facility:[facility] Start: 02-23-2022 End: 02-24-[address] FELISHA RAMOS . Facility:[facility] Start: 02-22-2022 End: 02-23-[address] JEREMIAH REED Facility:[facility] Start: 01-24-2022 End: 01-24-[address] FELISHA RAMOS . Facility:[facility] Start: 01-07-2022 End: 01-08-[address] PEYTON BARRON Facility:[facility] Start: 01-05-2022 End: 01-06-[address] FELISHA RAMOS . Facility:[facility] Start: 12-13-2021 End: 12-13-[address] FELISHA RAMOS . Facility:[facility] Start: 12-07-2021 End: 12-08-[address] FELISHA RAMOS . Facility:[facility] Start: 11-24-[address] JEREMIAH REED Facil ity:[facility] Start: 11-22-2021 End: 11-22-[address] SHIREEN ORTEGA Facility:[facility] Start: 11-18-2021 End: 11-21-2021 Evaluation and management of inpatient DR HARSHAL MENDIETA Facility:[facility] Start: 10-25-2021 End: 10-26-[address] EHSAN MILLER Facility:[facility] Start: 10-24-2018 End: 10-24-2018 Patient encounter procedure Radha L Clinker Work Phone: [facility] Start: 08-21-2018 End: 08-21-2018 Patient encounter procedure Radha L Clinker Work Phone: [facility] Start: 06-28-2018 End: 06-28-2018 Patient encounter procedure [facility] L [facility]inker [facility] Procedures Date Procedure Procedure Detail Performing Clinician Start: 06-16-2016 Cystourethroscopy wi th dilation of urethral stricture BRENDA MARIN Appendectomy BRENDA MARIN Biopsy of breast BRENDA ACOSTA DUANENathan Hysterectomy BRENDA MARIN Plan of Treatment Date Care Activity Detail Author Start: 06-05-2023 ambulatory Ambulatory Facility[facility] Start: 10-26-2022 ambulatory Ambulatory Facility: 1 Start: 01-12-2019 Influenza vaccination INFLUENZ A VACCINE (Season Ended) [facility] Start: 01-12-2018 Influenza vaccination INFLUENZA VACC INE (#1) [facility] Start: 02-10-2012 Pneumococcal vaccination PNEUM OCOCCAL VACCINE SERIES (1 of 2 - PCV13) [facility] Start: 1997 Protein mass conc COLON CANCER SCREENING DISCUSSION [facility] Start: 1997 Zoster vaccine hzv l derrell for subcutaneous use ZOSTER (SHINGLES) VACCINE (1 of 2) [facility] Start: 1987 Fasting lipid profile LIPID SCREENIN G [facility] Start: 1987 Protein mass conc MAMMOGRAM SC REENING DISCUSSION [facility] Start: 02-10-1968 Screening for malign ant neoplasm of cervix PAP SMEAR DISCUSSION [facility] Start: 1966 Third diphtheria, tetanus and acellular pertussis (DTaP) vaccination TDAP (ADULT) [facility] Start: 1965 Tetanus vaccination [facility] Start: 1947 Hepatitis C antibody , confirmatory test HEPATITIS C VIRUS SCREENING [facility] Start: 1945 Screening for osteoporosis DEXA SCAN DISCUSSION [facility] Immunizations Immunization Date Immunization Notes Care Provider Fa [facility] 03-31-2021 SARS-CoV-2 (COVID-19 ) mRNA BNT-162b2 vax BRENDA MARIN [facility] 07-21-2020 SARS-CoV-2 (COVID-19 ) Ad26 vaccine, recombinant BRENDA MARIN [facility] 04-11-2020 influenza virus vaccine, unspecified formulation BRENDA MIAH [facility] 02-02-2011 influenza virus vaccine, unspecified formulation BRENDA MARIN [facility] Payers Date Payer Category Payer Medicare 2022 Unknown 1959 Medicare [id number] 1957 Unknown [id number] 1945 Unknown [id number] 2.16.84 0.1.637224.3.579.2.593 1945 Unknown [id number] 2.16.84 0.1.879966.3.579.2.593 1945 Unknown [id number] 2.16.84 0.1.628558.3.579.2.593 1945 Unknown [id number] 2.16.84 0.1.247767.3.579.2.593 1945 Unknown [id number] 2.16.84 0.1.810706.3.579.2.593 1945 Unknown [id number] 2.16.84 0.1.641934.3.579.2.593 1945 Unknown [id number] 2.16.84 0.1.993416.3.579.2.593 1945 Unknown [id number] 2.16.84 0.1.444855.3.579.2.593 1947 Unknown [id number] 2.16.84 0.1.553153.3.579.2.593 1947 Unknown [id number] 2.16.84 0.1.414567.3.579.2.593 1945 Unknown [id number] 2.16.84 0.1.747929.3.579.2.593 1945 Unknown [id number] 2.16.84 0.1.834635.3.579.2.593 1947 Unknown [id number] 2.16.84 0.1.571945.3.579.2.593 1947 Unknown [id number] 2.16.84 0.1.738786.3.579.2.593 1947 Unknown [id number] 2.16.84 0.1.134665.3.579.2.593 1947 Unknown [id number] 2.16.84 0.1.768456.3.579.2.593 1947 Unknown [id number] 2.16.84 0.1.325117.3.579.2.593 1947 Unknown [id number] 2.16.84 0.1.422503.3.579.2.593 1945 Unknown [id number] 2.16.84 0.1.147196.3.579.2.593 1945 Unknown [id number] 2.16.84 0.1.764288.3.579.2.593 1945 Unknown [id number] 2.16.84 0.1.427972.3.579.2.593 1945 Unknown [id number] 2.16. 840.1.441463.3.579.2.196 1945 Unknown [id number] 2.16. 840.1.987810.3.579.2.196 1945 Unknown [id number] 2.16. 840.1.570093.3.579.2.196 1945 Unknown [id number] 2.16. 840.1.185168.3.579.2.196 1945 Unknown [id number] 2.16. 840.1.112093.3.579.2.196 1945 Unknown [id number] 2.16.8 40.1.223888.3.579.2.727 1945 Unknown [id number] 2.16.8 40.1.150141.3.579.2.727 1945 Unknown [id number] 2.16.8 40.1.170048.3.579.2.727 Social History Date Type Detail Facility Tobacco smoking stat us OHIS Unknown if ever smoked [facility] [employer] Sex Assigned At Not on file [employer] Start: 02-03-2021 End: 04-12-2023 Tobacco smoking status Ex-smoker (finding) [facility] Sex Assigned At Female [facility] Functional Status Date Assessment Result Facility 04-12-2023 Functional Status N/A [facility] 04-12-2023 Functional Status [facility] 06-21-2022 Functional Status N/A [facility] Clinical Notes 01-12-2013 to 04-13-2023 Note Date & Type Note Facility 04-13-2023 Note Chief Complaint pt arrives via [facility] after being found outside by a neighbor without a shirt on. pt is a/o to self and place, not time. FSBS upon arrival 88. Pt was recently treated for UTI @[facility]. pt. denies fall, was found sitting down. History of Present Illness 78-year-old female with PMH reformed smoker, HTN, anxiety, depression, peripheral neuropathy, GERD, OAB, obesity. -Patient presented to the ED secondary to confusion. -Per ED physician patient was recently in [facility] and treated for a UTI on antibiotic, is unclear if she finished this. Patient is currently histrionic and tangential, her daughter is at bedside who assist with information, I also spoke with her son Dwight Nunes via phone to assist with medical history. Per family it is common with a UTI for her to have her current behaviors impulsive, tangential, and argumentative. Per son today she was found outside sitting in the cold by bystander who assisted her into her home where she spoke with her son who states she was confused hence her presentation to the ED. Per son and dgt. she is baseline A&O x 4 spheres and lives independently. Patient was evaluated in the ED and referred to the hospitalist service for further evaluation and consultation to neurology services. Review of Systems -Last BM: 04/12 Additional ROS info: Except as noted in the above Review of Systems and in the History of Present Illness all other systems have been reviewed and are negative or noncontributory Scoring [place] Fall Risk Score: 50 High (04/12/23) Physical Exam Vitals & Measurements T: 36.5 ?C(Oral) HR: 96(Monitored) RR: 20 BP: 134/68 SpO2: 97% HT: 165 cm WT: 94.7 kg General: Calm, able to communicate needs, Head: Normocephalic/atraumatic Eyes: Pupils equal, round, and reactive to light. Conjunctivae and sclerae normal, and extraocular movements intact HEENT: Mucous membrane sticky. Tongue furrowed. Neck: Trachea midline, neck supple, Chest: No chest wall deformity, no chest wall tenderness Lungs: CTA chávez, no wheezing Cardio: Normal rate, currently in RSR, no edema. Pulses: Normal capillary refill Abdomen: Soft, non-distended, non-tender, normal BS Musculoskeletal: No deformity or scoliosis noted. Integumentary: Warm, dry, Extremity: No clubbing, Neurologic: Alert, oriented x person, address, , president, unclear on month/year, follows commands, histrionic, tangential, impulsive, per family this is not her baseline she is typically ANO x 4 and lives independently without concern. Mental status: Pleasant & cooperative, approp. affect, Lab Results WBC: 15.1 E9/L High (04/12/23 12:53:00) RBC: 4.9 E12/L (04/12/23 12:53:00) HGB: 14 gm/dL (04/12/23 12:53:00) Hct: 44.4 % (04/12/23 12:53:00) MCV: 89.9 fL (04/12/23 12:53:00) MCH: 28.5 pg (04/12/23 12:53:00) MCHC: 31.6 gm/dL (04/12/23 12:53:00) RDW: 15.3 % High (04/12/23 12:53:00) Platelet: 285 E9/L (04/12/23 12:53:00) MPV: 9.8 fL (04/12/23 12:53:00) Neutro Auto: 82 % High (04/12/23 12:53:00) Lymph Auto: 9.7 % Low (04/12/23 12:53:00) Bulloch Auto: 7.8 % (04/12/23 12:53:00) Eos Auto: 0.1 % (04/12/23 12:53:00) Basophil Auto: 0.4 % (04/12/23 12:53:00) Neutro Absolute: 12.4 E9/L High (04/12/23 12:53:00) Lymph Absolute: 1.5 E9/L (04/12/23 12:53:00) Bulloch Absolute: 1.2 E9/L High (04/12/23 12:53:00) Eos Absolute: 0 E9/L (04/12/23 12:53:00) Basophil Absolute: 0.1 E9/L (04/12/23 12:53:00) PT: 10.4 second(s) (04/12/23 12:53:00) INR: 0.9 (04/12/23 12:53:00) PTT: 29.5 second(s) (04/12/23 12:53:00) Glucose Lvl: 89 mg/dL (04/12/23 12:53:00) BUN: 39 mg/dL High (04/12/23 12:53:00) Creatinine: 1.8 mg/dL High (04/12/23 12:53:00) eGFR: 29 mL/min/1.73 m2 Low (04/12/23 12:53:00) BUN/Creat Ratio: 22 High (04/12/23 12:53:00) Sodium Lvl: 144 mmol/L (04/12/23 12:53:00) Potassium Lvl: 4.3 mmol/L (04/12/23 12:53:00) Chloride: 109 mmol/L (04/12/23 12:53:00) CO2: 23 mmol/L (04/12/23 12:53:00) AGAP: 16 mEq/L (04/12/23 12:53:00) Calcium Lvl: 10 mg/dL (04/12/23 12:53:00) Alk Phos: 78 Int._Unit/L (04/12/23 12:53:00) ALT: 22 Int._Unit/L (04/12/23 12:53:00) AST: 25 Int._Unit/L (04/12/23 12:53:00) Total Protein: 7.7 gm/dL (04/12/23 12:53:00) Albumin Lvl: 4.4 gm/dL (04/12/23 12:53:00) Globulin: 3.3 gm/dL (04/12/23 12:53:00) A/G Ratio: 1.3 (04/12/23 12:53:00) Bili Total: 0.7 mg/dL (04/12/23 12:53:00) Bili Direct: 0.1 mg/dL (04/12/23 12:53:00) Bili Indirect: 0.6 mg/dL (04/12/23 12:53:00) Troponin: 11.9 pg/mL (04/12/23 12:53:00) U Amph Scr: Negative (04/12/23 14:32:00) U Tiesha Scr: Negative (04/12/23 14:32:00) U Benzodia Scr: Positive Abnormal (04/12/23 14:32:00) U Cannab Scr: Negative (04/12/23 14:32:00) U Cocaine Scr: Negative (04/12/23 14:32:00) U Opiate Scr: NEG1 (04/12/23 14:32:00) U PCP Scr: Negative (04/12/23 14:32:00) Ethanol Lvl: <5 (04/12/23 12:53:00) Glucose Cap: 88 mg/dL (04/12/23 12:23:00) POC Device SN: [id number] (04/12/23 12:23:00) POC User ID: (more content not included)... [facility] Comment on above: Result Comment: Elec tronically Signed By: Radha TAYLOR\.br\Date and Time Signed: 04/12/23 16:29 EST\.br\Electronically Co-Signed By: Radha TAYLOR\.br\Date and Time Co-Signed: 04/12/23 16:37 EST\.br\Electronically Co-Signed By: Radha TAYLOR\.br\Date and Time Co-Signed: 04/12/23 16:58 EST\.br\Electronically Co- Signed By: Tessie BERNAL, Efrain\.br\Date and Time Co-Signed: 04/13/23 16:43 EST 04-13-2023 Note Admission and Discha rge Information Admitting Physician - Tessie BERNAL, Efrain Consulting Physician - Ehsan Blair MD Admitting Diagnoses: Discharge Diagnoses 1. AMS (altered mental status), 04/12/2023 Pt. alert and oriented x 4 spheres this morning, independent in all of her activities, she is engaging in conversation, daughter at bedside, she is at her baseline. Patient will follow-up for ongoing neurology evaluation in addition to following up with mental health services. -Leukocytosis likely reactive as patient has negative UA, chest x-ray & Pro-Hemant, no fever, denies chills, cough, sputum prod. abd pain N/V/D. She has no ill complaints today. 2. Elevated serum creatinine, 04/12/2023 3. HTN (hypertension), 04/12/2023 4. Anxiety and depression, 04/12/2023 5. Peripheral neuropathy, 04/12/2023 FWW, cane, HHC w/ PT services - CRM to arrange 6. Chronic GERD, 04/12/2023 7. OAB (overactive bladder), 04/12/2023 8. Obesity, 04/12/2023 9. On deep vein thrombosis (DVT) prophylaxis, 04/12/2023 Please refer to my progress note for in-depth information regarding each individual diagnosis Procedure History Cystourethroscopy with dilation of urethral stricture (06/16/2016), Appendectomy, Biopsy of breast, Hysterectomy. Hospital Course 78-year-old female with PMH reformed smoker, HTN, anxiety, depression, peripheral neuropathy, GERD, OAB, obesity. -Patient presented to the ED secondary to confusion. -CT head, CT C-spine, chest x-ray: No acute process, -MRI brain per Dr. Nolasco is negative for acute process, awaiting final read -UA: No infectious process. -AMS likely metabolic encephalopathy secondary to polypharmacy: Baclofen, gabapentin, nortriptyline, Percocet, ? if pt. was taking bupropion, buSpar). Patient was seen in consultation by neurology services with recommendations for medication changes as below. No further inpatient workup, may discharge from allergy standpoint with follow-up in neuro clinic. Medication changes: -Transition Percocet from daily to prn use -Recommend Tylenol prn as pain mgt. supplement w/ 4g/24hr limit -Decrease baclofen from 10 mg to 5 mg 3 TID -Decrease gabapentin from 600 mg to 300 mg TID -SOLO resolved with IV fluids, patient has good oral intake today. -Recommend patient follow-up with mental health services for ongoing anxiety and depression management. -Patient states that all admitting symptoms have significantly improved and/or resolved. Patient is eating and drinking without complaints, denies being SOB, chest pain, pressure, palpitations or difficulty with voiding.Patient is eager to be discharged to home. --Other chronic medical conditions as outlined in note. Refer to d/c plan below: -Case reviewed and discussed with Dr. Kurtz who is in agreement with current d/c plan. Case will be reviewed and discussed with PCP or outreach professional MD once the hospital stenotype machine operator is able to reach him/her. I spent a lengthy amount of time with the patient and/or family (teach back method) reviewing discharge instructions, medications, medication use. Patient to follow-up with PCP and specialty providers as scheduled on discharge. Patient being discharged in medically/hemodynamically stable cond. with instructions to return to the hospital if symptoms worsen or recur. This report was transcribed using voice recognition software. Every effort was made to ensure accuracy, however, inadvertently computerized road design draftsperson mistakes may be present. Significant Findings CT Head or Brain w/o Contrast 04/12/23 13:50:22 IMPRESSION: NO ACUTE INTRACRANIAL PROCESS IDENTIFIED. EXAM: CT Head or Brain w/o Contrast DATE: 04/12/2023 1:42 PM CLINICAL HISTORY: Mental status change, unknown cause. COMPARISON: None available. TECHNIQUE: Routine. All CT scans at this facility use dose modulation, iterative reconstruction, and/or weight based dosing when appropriate to reduce radiation dose to as low as reasonably achievable. FINDINGS: There is no intracranial hemorrhage, mass effect, midline shift, extra-axial collection, evidence of hydrocephalus, skull fracture, or a recent ischemic infarct identified. A small probable chronic lacunar infarct is noted within the burnham radiata adjacent to the right body of the lateral ventricle. Mild patchy supratentorial white matter changes most consistent with chronic small vessel ischemic disease. The mastoid air cells and visualized paranasal sinuses are essentially clear. Ordering Provider: Abran Holguin Signed By: Jae Barry MD CT Spine Cervical w/o Contrast 04/12/23 13:52:42 IMPRESSION: NO FRACTURE OR EVIDENCE OF CERVICAL SPINE INJURY IDENTIFIED. EXAM: CT Spine Cervical w/o Contrast DATE: 04/12/2023 1:43 PM CLINICAL HISTORY: Pain after recent fall. COMPARISON: None available. TECHNIQUE: Spiral unenhanced images were obtained of the cervical spine, with routine reconst (more content not included)... [facility] Comment on above: Result Comment: Elec tronically Signed By: Radha TAYLOR\.br\Date and Time Signed: 04/13/23 10:54 EST\.br\Electronically Co-Signed By: Radha TAYLOR\.br\Date and Time Co-Signed: 04/13/23 10:57 EST\.br\Electronically Co-Signed By: Radha TAYLOR\.br\Date and Time Co-Signed: 04/13/23 10:58 EST\.br\Electronically Co-Signed By: Radha TAYLOR\.br\Date and Time Co-Signed: 04/13/23 10:59 EST\.br\Electronically Co-Signed By: Radha TAYLOR\.br\Date and Time Co-Signed: 04/13/23 13:55 EST\.br\Electronically Co-Signed By: Tessie BERNAL, Ahmaag\.br\Date and Time Co- Signed: 04/13/23 16:37 EST 04-13-2023 Evaluation + Plan note Extrac kyleigh from: Title:Discharge Note Author:Lauren TAYLOR Date:04/13/23 Hemodynamically stable resul ts Discharged to - Home with home health Discharge Status: Improved Discharge Instructions Given: To patient Discharge disposition: Home Prescriptions reviewed with Patient 64 minutes spent in discharge time with patient, allergy, collaborating MD, nursing staff, CRM, Discharge Diet(s): Regular, Fat Modified- Low cholesterol, Low Sodium- 2000 mg (04/13/23 10:37:00) Prescriptions Vesicare 10 mg Tab, 10 mg= 1 tab(s), Oral, Daily, 11 refills Home acetaminophen 325 mg Tab, 650 mg= 2 tab(s), Oral, q6hr, PRN acetaminophen-oxycodone 325 mg-2.5 mg oral tablet, 1 tab(s), Oral, q12hr, PRN amLODIPine 2.5 mg Tab, 5 mg= 2 tab(s), Oral, Daily aspirin 81 mg Oral EC Tab, 81 mg= 1 tab(s), Oral, Daily baclofen 10 mg Tab, 5 mg= 0.5 tab(s), Oral, TID gabapentin 300 mg Cap, 300 mg= 1 cap(s), Oral, TID melatonin, Once a day (at bedtime) meloxicam 15 mg Tab, 15 mg= 1 tab(s), Oral, Daily nortriptyline 25 mg Cap, 25 mg= 1 cap(s), Oral, Bedtime Ocuvite, Oral, Daily omeprazole 40 mg Cap-DR, 40 mg= 1 cap(s), Oral, Daily With When Contact Information [facility] Additional Instructions: Call for followup appointment for anxiety/depression care. Gerald Nolasco Within [address] to [address], [place] [address] Business (1) Additional Instructions: JEREMIAH REED Within 2 to 4 days [facility] [place] [address]- Business (1) Additional Instructions: Confusion Extracted from: Title:Consult Note-neurology Author:Rik ALVARES, N ichole Date:04/13/23 ASSESSMENT: 1. Acute confusional state. May have been a degree of metabolic encephalopathy related to mild SOLO. Recent UTI but probably no longer infected. Consider medication effect, specifically gabapentin and baclofen. MRI brain is personally reviewed and I do not see any acute findings or any concerning findings; awaiting radiology report. 2. Sounds like she may be developing some delusions or hallucinations that are becoming increasingly noticed. She has poor insight into these. Needs to be clinically followed in the outpatient setting to make sure she is not developing Lewy body disease or other neuropsychiatric disorder. PLAN: 1. Await formal MRI report 2. Decrease gabapentin 600 mg 3 times daily to 300 mg 3 times daily 3. Decrease baclofen from 10 mg 3 times daily down to 5 mg 3 times daily and can likely taper completely off 4. Needs followed up in outpatient neurology setting with strong consideration for neuropsychological evaluation 5. No other recommendations at this time 1. AMS (altered mental status) (R41.82: Altered mental status, unspecified) 2. Elevated serum creatinine (R79.89: Other specified abnormal findings of blood chemistry) 3. HTN (hypertension) (I10: Essential (primary) hypertension) 4. Anxiety and depression (F41.9: Anxiety disorder, unspecified) 5. Peripheral neuropathy (G62.9: Polyneuropathy, unspecified) 6. Chronic GERD (K21.9: Gastro-esophageal reflux disease without esophagitis) 7. OAB (overactive bladder) (N32.81: Overactive bladder) 8. Obesity (E66.9: Obesity, unspecified) 9. On deep vein thrombosis (DVT) prophylaxis (Z79.899: Other fdc (current) drug therapy) Depression, unspecified (F32.A: Depression, unspecified) Extracted from: Title:ED Note Author:Abran Holguin DO Date:06/12/22 1. AMS (altered mental statu s) (R41.82: Altered mental status, unspecified) 2. Elevated serum creatinine (R79.89: Other specified abnormal findings of blood chemistry) 3. HTN (hypertension) (I10: Essential (primary) hypertension) 4. Anxiety and depression (F41.9: Anxiety disorder, unspecified) 5. Peripheral neuropathy (G62.9: Polyneuropathy, unspecified) 6. Chronic GERD (K21.9: Gastro-esophageal reflux disease without esophagitis) 7. OAB (overactive bladder) (N32.81: Overactive bladder) 8. Obesity (E66.9: Obesity, unspecified) 9. On deep vein thrombosis (DVT) prophylaxis (Z79.899: Other fdc (current) drug therapy) Depression, unspecified (F32.A: Depression, unspecified) Orders: Automated Diff Basic Metabolic Panel CBC w/ Auto Diff Continuous Pulse Oximetry CT Head or Brain w/o Contrast CT Spine Cervical w/o Contrast Drug Screen Urine ECG 12 Lead Adult ED Cardiac Monitoring ED Physician consult Hospitalist for continued care eGFR Ethanol Level Folate Level Hepatic Function Panel Oxygen Therapy PT & PTT Routine Capillary Glucose POC Troponin 0 Hr. UA With Cult Reflex XR Chest Single View Extracted from: Title:Admission H & P Author:TITI TORODivine GUNDERSON enee Date:04/12/23 1. AMS (altered mental statu s) (R41.82: Altered mental status, unspecified) ? met encephalopathy: infectious process vs. polypharmacy (baclofen, bupropion, buSpar, gabapentin, nortriptyline, percocet) -Baseline mentation: per family this is not her baseline she is typically ANO x 4 and lives independently without concern. -CT head, CT Cspine, CXR: No acute process -Glucose level - 88 -Vt. B12, folate, vt. D - pending -PVR - pending -MRI brain: pending -UA - pending -Asa -Consult neuro: pending 2. Elevated serum creatinine (R79.89: Other specified abnormal findings of blood chemistry) Baseline Cr - unknown - awaiting records from [facility] -Renal US & PVR - if Cr worsens -Consult nephrology - if Cr worsens -IVF x 500ml - then re-eval in a.m. -Trend BMP -Avoid nephrotoxic medications as much as possible 3. HTN (hypertension) (I10: Essential (primary) hypertension) Awaiting med rec. for all diagnosis 4. Anxiety and depression (F41.9: Anxiety disorder, unspecified) Denies SI/HI 5. Peripheral neuropathy (G62.9: Polyneuropathy, unspecified) 6. Chronic GERD (K21.9: Gastro-esophageal reflux disease without esophagitis) 7. OAB (overactive bladder) (N32.81: Overactive bladder) 8. Obesity (E66.9: Obesity, unspecified) BMI 34 -Educated on need for lifestyle modifications with goal of weight loss as obesity has a negative impact on co-morbid conditions. 9. On deep vein thrombosis (DVT) prophylaxis (Z79.899: Other long term care pharmacist (current) drug therapy) -Heparin sq with early ambulation Orders: acetaminophen, 650 mg = 2 tab(s), Tab, Oral, q6hr PRN Pain, Routine, Start date 04/12/23 16:15:00 EST, 04/12/23 16:15:00 EST aspirin, 81 mg = 1 tab(s), Tab-EC, Oral, Daily, Routine, Start date 04/13/23 9:00:00 EST, 04/12/23 16:15:00 EST heparin, 5,000 unit(s) = 1 mL, Injection, SubCutaneous, BID for 30 day(s), Stop date 05/12/23 20:59:00 EST, Routine, Start date 04/12/23 21:00:00 EST, 04/12/23 16:15:00 EST ondansetron, 4 mg = 2 mL, Injection, IV Push, q6hr PRN Nausea, Routine, Start date 04/12/23 16:15:00 EST, 04/12/23 16:15:00 EST Sodium Chloride 0.9% intravenous solution 500 mL, 500 mL, IV, 50 mL/hr, for 1 dose(s), Stop date 04/13/23 2:22:00 EST, Routine, Start date 04/12/23 16:23:00 EST, 10 hour(s), Total volume (mL): 500, 94.7 kg, 2.08, m2 Ambulate with Assistance Below the Knee Intermittent Pneumatic Compression Device Cardiac Monitoring Communication Order Communication Order Physician to Nursing Communication Order Physician to Nursing Consult to Neurology Dysphagia Screen Elevate Head of Bed Evaluate Need For Continued Telemetry HgbA1c Intake and Output Lipid Panel Magnesium Level MRI Brain w/o Contrast Neurological Assessment Neurological Assessment Notify Provider Vital Signs Notify Provider Vital Signs Occupational Therapy Evaluate Patient, Develop a Plan of Care and Implement Plan Oxygen Protocol Physical Therapy Evaluate Patient, Develop a Plan of Care and Implement Plan Precautions Pulse Oximetry Stroke Quality Measures TSH With T4fr Reflex UA With Cult Reflex Vital Signs Weight -Plan discussed w/ patient, nursing staff and CRM. -Disposition: Patient will likely be less than 2 midnight stays for treatment of above. This report was transcribed using voice recognition software. Every effort was made to ensure accuracy, however, inadvertently computerized road design draftsperson mistakes may be present. Future Appointments Appointment Date:06/05/2023 01:00:00 PM Scheduled Provider:BRENDA MARIN PA-C Location:[facility] Appointment Type:URO Office Visit [facility]12-01-2023 NoteChief Complaint AMS Reason for Consultation Altered mental status History of Present Illness 78-year-old woman, former smoker, has hypertension, anxiety, depression, chronic low back pain, peripheral neuropathy. History obtained from her and her daughter as well as chart review. It seems details of the event are somewhat unclear still. Her daughter was not there to witness it. Apparently she was recently treated for UTI with an antibiotic. Karrie makes it sound like she was out on the front porch with the dog and somehow slid to the ground and could not get back up. And shesays she could not get back in her house. She said she was not locked out, but because of her struggle on the ground could not get back in. But then there are reports that she was found without a shirt on and had to have a sweatshirt put on her and was acting abnormally. And her daughter says that more chronically she seems to be having delusions or hallucinations regarding her and son being there. Karrie downplayed all of that. She is on some potentially psychoactive medication that could have contributed. She is not clear as to why she is taking gabapentin or baclofen but she says she follows with pain management has chronic low back pain. Review of Systems GEN: No fevers or chills. CV/PULM: No chest pain. No shortness of breath. No palpitations. NEURO: No headaches. No loss of vision. No double vision. No dysphagia. No speech changes. No focalweakness. No sensory loss. Physical Exam Vitals & Measurements T: 36.6 ?C(Axillary) TMIN: 36.2 ?C(Oral) TMAX: 36.6 ?C(Axillary) HR: 89(Monitored) RR: 19 RR: 19 BP: 127/68 SpO2: 94% HT: 165.10 cm WT: 92.6 kg GEN: General appearance normal. Well-kempt. No distress. No visualized deformities or trauma. CARDIO/VASC: Limbs without significant edema and appear well-perfused. PULM: Normal work of breathing. SKIN: Visualized skin is intact and without lesions aside from age-related findings. MS: Affect is normal. Patient is alert and is oriented to and April and said 1923 but corrected herself to 2022. Normal attention. LANG: Speech is fluent and non-dysarthric. EYES: Pupils equal/reactive/consensual. Ocular motility full. No pathologic nystagmus. CN: Facial sensation normal. Hearing acuity normal. Face without droop and with normal motor function. MOTOR: Muscle bulk normal. Muscle tone normal. Muscle strength normal. No tremors. REFLEXES: Reflexes hypoactive throughout. No pathologic reflexes. SENSORY: Light touch normal. Vibratory sensation intact in distal extremities. CEREBELLAR: No limb ataxia. Assessment/Plan ASSESSMENT: 1. Acute confusional state. May have been a degree of metabolic encephalopathy related to mild SOLO.Recent UTI but probably no longer infected. Consider medication effect, specifically gabapentin andbaclofen. MRI brain is personally reviewed and I do not see any acute findings or any concerning findings; awaiting radiology report. 2. Sounds like she may be developing some delusions or hallucinations that are becoming increasingly noticed. She has poor insight into these. Needs to be clinically followed in the outpatient setting to make sure she is not developing Lewy body disease or other neuropsychiatric disorder. PLAN: 1. Await formal MRI report 2. Decrease gabapentin 600 mg 3 times daily to 300 mg 3 times daily 3. Decrease baclofen from 10 mg 3 times daily down to 5 mg 3 times daily and can likely taper completely off 4. Needs followed up in outpatient neurology setting with strong consideration for neuropsychological evaluation 5. No other recommendations at this time 1. AMS (altered mental status) (R41.82: Altered mental status, unspecified) 2. Elevated serum creatinine (R79.89: Other specified abnormal findings of blood chemistry) 3. HTN (hypertension) (I10: Essential (primary) hypertension) 4. Anxiety and depression (F41.9: Anxiety disorder, unspecified) 5. Peripheral neuropathy (G62.9: Polyneuropathy, unspecified) 6. Chronic GERD (K21.9: Gastro-esophageal reflux disease without esophagitis) 7. OAB (overactive bladder) (N32.81: Overactive bladder) 8. Obesity (E66.9: Obesity, unspecified) 9. On deep vein thrombosis (DVT) prophylaxis (Z79.899: Other long term care pharmacist (current) drug therapy) Depression, unspecified (F32.A: Depression, unspecified) Problem List/Past Medical History Ongoing Chronic cystitis Cigarette smoker Dorsalgia OAB (overactive bladder) Urethral stricture Historical Abdominal tenderness Acute UTI Dysuria Feeling of incomplete bladder emptying Frequency of urination Nocturia Other post-traumatic urethral stricture, female Urinary urgency Weak urine stream Procedure/Surgical History Cystourethroscopy with dilation of urethral stricture (06/16/2016), Appendectomy, Biopsy of breast,Hysterectomy. Medications Inpatient acetaminophen 325 mg Tab, 650 mg= 2 tab(s), Oral, q6hr, PRN Afrin 0.05% Driver, 2 s (more content not included)...[facility] Comment on above:Result Comment: Electronically Signed By: Kamala Jolly RN\.br\Date and Time Signed: 04/13/23 09:19 EST\.br\Electronically Co- Signed By: Gerald Nolasco DO\.br\Date and Time Co-Signed: 04/13/23 11:28 EST 04-13-2023 Hospital Discharge instructions Patient Education 04/13/2023 10:40:43 Confusion Confusion Confusion is the inability to think with your usual speed or clarity. Confusion can be caused by many things. People who are confused often describe their thinking as cloudy or unclear. Confusion canalso include feeling disoriented. This means you are unaware of where you are or who you are. You may also not know the date or time. When confused, you may have trouble remembering, paying attention, or making decisions. Some people also act aggressively when they are confused. In some cases, confusion may come on quickly. In other cases, it may develop slowly over time. Confusion may be caused by medical conditions such as: Infections, such as a urinary tract infection (UTI). Low levels of oxygen, which can develop from conditions such as long-term lung disorders. Decrease in brain function due to dementia and other conditions that affect the brain, such as seizures, strokes, brain tumors, or head injuries. Mental health conditions, like panic attacks, anxiety, depression, and hallucinations. Confusion may also be caused by physical factors such as: Loss of fluid (dehydration) or an imbalance of salts and minerals in the body (electrolytes). Lack of certain nutrients like niacin, thiamine, or other B vitamins. Fever or hypothermia, which is a sudden drop in body temperature. Low or high blood sugar. Low or high blood pressure. Other causes include: Lack of sleep or changes in routine or surroundings, such as when traveling or staying in a hospital. Using too much alcohol, drugs, or medicine. Side effects of medicines, or taking medicines that affect other medicines (drug interactions). Follow these instructions at home: Pay attention to your symptoms. Tell your health care provider about any changes or if you develop new symptoms. Follow these instructions to control or treat symptoms. Ask a family member or friend for help if needed. Medicines Take [id number] and prescription medicines only as told by your health care provider. Ask your health care provider about changing or stopping any medicines that may be causing your confusion. Avoid pain medicines or sleep medicines until you have fully recovered. Use a pillbox or an alarm to help you take the right medicines at the right time. Lifestyle Eat a balanced diet that includes fruits and vegetables. Get enough sleep. For most adults, this is 7 9 hours each night. Do not drink alcohol. Do not become isolated. Spend time with other people and make plans for your days. Do not drive until your health care provider says that it is safe to do so. Do not use any products that contain nicotine or tobacco, such as cigarettes, e- cigarettes, and chewing tobacco. If you need help quitting, ask your health care provider. Stop other activities that may increase your chances of getting hurt. These may include some work duties, sports activities, swimming, or bike riding. Ask your health care provider what activities are safe for you. Tips for caregivers Find out if the person is confused. Ask the person to state his or her name, age, and the date. If the person is unsure or answers incorrectly, he or she may be confused and need assistance. Always introduce yourself, no matter how well the person knows you. Remind the person of his or herlocation. Place a calendar and clock near the person who is confused. Keep a regular schedule. Make sure the person has plenty of light during the day and sleep at night. Talk about current events and plans for the day. Keep the environment calm, quiet, and peaceful. Help the person do the things that he or she is unable to do. These include: ?Taking medicines. ?Keeping medical appointments. ?Helping with household duties, including meal preparation. ?Running errands. Get help if you need it. There are several support groups for caregivers. If the person you are helping needs more support, consider day care, extended-care programs, or a fci facility. The person's health care provider may be able to help evaluate these options. General instructions Monitor yourself for any conditions you may have. These can include: ?Checking your blood glucose levels if you have diabetes. ?Maintaining a healthy weight. ?Monitoring your blood pressure if you have hypertension. ?Monitoring your body temperature if you have a fever. Keep all follow-up visits. This is important. Contact a health care provider if: You have new symptoms or your symptoms get worse. Get help right away if you: Feel that you are not able to care for yourself. Develop severe headaches, repeated vomiting, seizures, blackouts, or slurred speech. Have increasing confusion, weakness, numbness, restlessness, or personality changes. Develop a loss of balance, have marked dizziness, feel uncoordinated, or fall. Develop severe anxiety, or you have delusions or hallucinations. These symptoms may represent a serious problem that is an emergency. Do not wait to see if the symptoms will go away. Get medical help right away. Call your local emergency services (911 in the [place] Do not drive yourself to the hospital. Summary Confusion is the inability to think with your usual speed or clarity. People who are confused oftendescribe their thinking as cloudy or unclear. Confusion can also include having trouble remembering, paying attention, or making decisions. Confusion may come on quickly or develop slowly over time, depending on the cause. There are many different causes of confusion. Ask for help from family members or friends if you are unable to take care of yourself. This information is not intended to replace advice given to you by your health care provider. Make sure you discuss any questions you have with your health care provider. Document Revised: 08/24/2020 Document Reviewed: 08/24/2020 This[employer] Patient Education 2022 [employer]. Follow Up Care 04/12/2023 12:15:50 With:Ehsan Blair MD, [facility] Address: [address] [address]- When:1 to 2 weeks Comments:This office is closed on Fridays. Please call the office on Sunday April 16, 2023 for a follow upappiontment. Thank you. With:JEREMIAH REED Address: [address] [place] [id number]- [facility] (1) When:2 to 4 days Comments:Call for followup appointment With:[facility] Address:Unknown When: Unknown Comments:Call for followup appointment for anxiety/depression care. [facility]12-01-2023 NotePT Evaluation done this date. Pt. with on AM-PAC this date. Recommend she use FWW for gait aswith cane she reaches for objects to hang onto with other hand. Will likely benefit from home health PT.[facility]11-17-2023 Evaluation note* Encounter Date Diagnosis Assessment Notes Treatment Notes Treatment Clinical Notes Mar, Colon cancer screening (ICD-10 - Z12.11) [employer] Other 11-16-2023 Evaluation note* Encounter Date Diagnosis Assessment Notes Treatment Notes Treatment Clinical Notes Mar, Generalized weakness (ICD-10 - R53.1) Followup as scheduled w ortho and PT Mar, COPD, moderate (ICD-10 - J44.9) continue present medication reviewed ER report from observation status [employer] Other 03-30-2023 NoteCONSULTATION CONSULTATION DATE: 08/10/2022 TO: Jeremiah Reed M.D. CHIEF COMPLAINT: Right shoulder pain. HISTORY: She reports approximately 4-6 weeks ago she had spontaneous severe pain in her right shoulder after lifting her puppy. She reports the pain is sharp in nature, 5-7/10 in severity, increased with activities such as lifting maneuvers and pushing/pulling maneuvers. She feels most comfortable in the semi-recumbent position. She denies any change in bowel and bladder habits or new sensorimotor changes in her upper extremities. EXAM: Her examination is notable for the patient having no clinical radiculopathy or myelopathy involving her upper extremities. She has nothing to suggest cervical facet joint related pain clinically. She did have severe pain with right shoulder flexion with internal rotation, pain with right shoulder extension with internal rotation and adduction, as well as pain with right shoulder abduction, and she had reduced range of motion to end range abduction, end range shoulder flexion and end range shoulder extension on the right side. She had a fair amount of myofascial spasm involving the right deltoid, mainly over the anterior belly, as well as the supraspinatus muscle. RECOMMENDATIONS: I recommend x-rays of her right shoulder, MRI of her right shoulder without contrast, to proceed with a right suprascapular nerve injection. I have increased her baclofen 10 mg pills, one pill t.i.d. as tolerated, and also temporarily increased the Percocet to 5 mg pills, one pill t.i.d. as tolerated for the next one week or so. Lastly, physical therapy. We will see the patient back in the office in four weeks' time or sooner if needed. [id number] NoteCONSULTATION PROCEDURE DATE: 08/10/2022 PROCEDURE: Right suprascapular nerve injection. PREOPERATIVE DIAGNOSIS: Pain secondary to right shoulder pain from rotator cuff tear, myofascial spasm right deltoid, trapezius and supraspinatus. POSTOPERATIVE DIAGNOSIS: Pain secondary to right shoulder pain from rotator cuff tear, myofascial spasm right deltoid, trapezius and supraspinatus. SOLUTIONS FOR INJECTION: 2 mL of 2% lidocaine, 2 mL of 0.25% Marcaine, 10 mg of Kenalog, total of 5 mL, 1 mL used for the injection. IMMEDIATE COMPLICATIONS: None. PROCEDURE: After informed consent was obtained from the patient, placed in the sitting position. Skin overlying the area was prepped with alcohol. A 25 gauge, 1 1/2 inch needle was inserted over the area of the right suprascapular nerve. Needle tip was advanced until there was mild paresthesia over the right shoulder area. Redirected the needle tip. When the paresthesia completely resolved, we injected 1 mL of solution. No indication of intravascular, intraneural and intrapleural needle tip placement or injection. No evidence of post procedural pneumothorax. Patient reports reduction in her pain symptoms post procedurally.[id number] Hospital Discharge instructions Patient Education 06/21/2022 14:35:24 Overactive Bladder, Adult Overactive Bladder, Adult Overactive bladder refers to a condition in which a person has a sudden need to pass urine. The person may leak urine if he or she cannot get to the bathroom fast enough (urinary incontinence). A person with this condition may also wake up several times in the night to go to the bathroom. Overactive bladder is associated with poor nerve signals between your bladder and your brain. Your bladder may get the signal to empty before it is full. You may also have very sensitive muscles thatmake your bladder squeeze too soon. These symptoms might interfere with daily work or social activities. What are the causes? This condition may be associated with or caused by: Urinary tract infection. Infection of nearby tissues, such as the prostate. Prostate enlargement. Surgery on the uterus or urethra. Bladder stones, inflammation, or tumors. Drinking too much caffeine or alcohol. Certain medicines, especially medicines that get rid of extra fluid in the body (diuretics). Muscle or nerve weakness, especially from: ?A spinal cord injury. ?Stroke. ?Multiple sclerosis. ?Parkinson's disease. Diabetes. Constipation. What increases the risk? You may be at greater risk for overactive bladder if you: Are an older adult. Smoke. Are going through menopause. Have prostate problems. Have a neurological disease, such as stroke, dementia, Parkinson's disease, or multiple sclerosis (MS). Eat or drink things that irritate the bladder. These include alcohol, spicy food, and caffeine. Are overweight or obese. What are the signs or symptoms? Symptoms of this condition include: Sudden, strong urge to urinate. Leaking urine. Urinating 8 or more times a day. Waking up to urinate 2 or more times a night. How is this diagnosed? Your health care provider may suspect overactive bladder based on your symptoms. He or she will diagnose this condition by: A physical exam and medical history. Blood or urine tests. You might need bladder or urine tests to help determine what is causing your overactive bladder. You might also need to see a health care provider who specializes in urinary tract problems (urologist). How is this treated? Treatment for overactive bladder depends on the cause of your condition and whether it is mild or severe. You can also make lifestyle changes at home. Options include: Bladder training. This may include: ?Learning to control the urge to urinate by following a schedule that directs you to urinate at regular intervals (timed voiding). ?Doing Kegel exercises to strengthen your pelvic floor muscles, which support your bladder. Toning these muscles can help you control urination, even if your bladder muscles are overactive. Special devices. This may include: ?Biofeedback, which uses sensors to help you become aware of your body's signals. ?Electrical stimulation, which uses electrodes placed inside the body (implanted) or outside the body. These electrodes send gentle pulses of electricity to strengthen the nerves or muscles that control the bladder. ?Women may use a plastic device that fits into the vagina and supports the bladder (pessary). Medicines. ?Antibiotics to treat bladder infection. ?Antispasmodics to stop the bladder from releasing urine at the wrong time. ?Tricyclic antidepressants to relax bladder muscles. ?Injections of botulinum toxin type A directly into the bladder tissue to relax bladder muscles. Lifestyle changes. This may include: ?Weight loss. Talk to your health care provider about weight loss methods that would work best for you. ?Diet changes. This may include reducing how much alcohol and caffeine you consume, or drinking fluids at different times of the day. ?Not smoking. Do not use any products that contain nicotine or tobacco, such as cigarettes and e-cigarettes. If you need help quitting, ask your health care provider. Surgery. ?A device may be implanted to help manage the nerve signals that control urination. ?An electrode may be implanted to stimulate electrical signals in the bladder. ?A procedure may be done to change the shape of the bladder. This is done only in very severe cases. Follow these instructions at home: Lifestyle Make any diet or lifestyle changes that are recommended by your health care provider. These may include: ?Drinking less fluid or drinking fluids at different times of the day. ?Cutting down on caffeine or alcohol. ?Doing Kegel exercises. ?Losing weight if needed. ?Eating a healthy and balanced diet to prevent constipation. This may include: ?Eating foods that are high in fiber, such as fresh fruits and vegetables, whole grains, and beans. ?Limiting foods that are high in fat and processed sugars, such as fried and sweet foods. General instructions Take [id number] and prescription medicines only as told by your health care provider. If you were prescribed an antibiotic medicine, take it as told by your health care provider. Do notstop taking the antibiotic even if you start to feel better. Use any implants or pessary as told by your health care provider. If needed, wear pads to absorb urine leakage. Keep a journal or log to track how much and when you drink and when you feel the need to urinate. This will help your health care provider monitor your condition. Keep all follow-up visits as told by your health care provider. This is important. Contact a health care provider if: You have a fever. Your symptoms do not get better with treatment. Your pain and discomfort get worse. You have more frequent urges to urinate. Get help right away if: You are not able to control your bladder. Summary Overactive bladder refers to a condition in which a person has a sudden need to pass urine. Several conditions may lead to an overactive bladder. Treatment for overactive bladder depends on the cause and severity of your condition. Follow your health care provider's instructions about lifestyle changes, doing Kegel exercises, keeping a journal, and taking medicines. This information is not intended to replace advice given to you by your health care provider. Make sure you discuss any questions you have with your health care provider. Document Released: 02/24/2010 Document Revised: 08/21/2019 Document Reviewed: 05/16/2018 ThisNext Patient Education 2020 [employer]. Follow Up Care 05/19/2021 14:10:29 With:BRENDA MARIN PA-C, URL Address: [address] [place] [address]. [place] [address] When: Unknown [facility] 12-29-2022 NoteCONSULTATION CONSULTATION DATE: 05/11/2022 HISTORY OF PRESENT ILLNESS: This is a pleasant, 77-year-old female who returns to the clinic for a three month follow up for chronic lower back pain. She most recently has had radiofrequency ablation of her right SI joint that was done in January of this year. Overall, she does feel better in her overall pain. She rates her pain 6-7/10, as she has a chronic level of achiness and sharp pain. Activities such as standing, walking, vacuuming and lifting aggravate her pain. Resting, ambulating with her cane decreases her pain. At her last appointment on 02/23/2022, we discontinued her diclofenac and put her on Mobic 15 mg daily. Patient thought she was retaining water while on the diclofenac. She presents today 13 pounds drier and pulverizer tender, feels that she is even breathing better. Medications include Percocet 5/325 b.i.d., BuSpar, melatonin, nortriptyline 25 mg q.h.s. and baclofen 10 mg b.i.d. Patient's REVIEW OF SYSTEMS / PAST MEDICAL HISTORY / ALLERGIES and IMAGES have been reviewed and noted in the chart. PHYSICAL EXAM: VITAL SIGNS: Blood pressure is 132/84. Heart rate is 80. Temperature is 97.3. He is 5'1 , weighs 92 kg. GENERAL APPEARANCE: Pleasant, appropriate, in no acute distress. FOCUSED EXAM - BACK: Range of motion is guarded in lateral rotation and flexion/extension. Paravertebral muscles are taut but non-spasmodic. Mild reproduction of spinal axial pain along L4, L5 bilaterally. Eva's point is non-tender bilaterally with negative FABERs and compression test. MUSCULOSKELETAL: Motor is 4/5 bilaterally. Patient does walk with a cane with a slight antalgic gait. Diffuse mild muscle atrophy noted bilateral lower extremities. NEUROLOGICAL: Diffuse polyneuropathy to bilateral lower extremities. +1 bilateral patellar reflexes. DIAGNOSIS: Chronic lower back pain, lumbar spondylosis, bilateral sacroiliitis and polyneuropathy. PLAN: We will refill her nortriptyline 25 mg q.h.s. I did recommend increasing the amount of heat application to her back as well as home stretches which were demonstrated for her. We will see her in three months' time unless otherwise indicated.[facility] [id number] NoteCONSULTATION CONSULTATION DATE: 02/23/2022 This is a peasant 77-year-old female returning to the clinic for status post right-sided SI RFA completed on 01/24/2022. Thus far, the patient is reporting 50% relief. Activities with increased walking, standing, stairs and bending does aggravate her pain. She does report that some days are better than others. Mitigating factors are sitting and lying down. She currently does not use heat or ice. The patient is concerned that she has gained weight progressively throughout this past year. She has been followed up with her PCP for shortness of breath symptomatology. She is in no distress. Current medications include diclofenac 50 mg b.i.d., gabapentin 600 mg t.i.d., Percocet 5/325 b.i.d., Buspar, Calcium and a vitamin regimen. She does ambulate with a cane. Does not report any new, recent falls or injuries. REVIEW OF SYSTEMS, PAST MEDICAL HISTORY, ALLERGIES AND IMAGES: Have been reviewed and noted in the chart. PHYSICAL EXAM: VITAL SIGNS: Blood pressure 145/86, heart rate is 87, temperature is 97.3. Height is 5'1 , weighs 97.7 kg. GENERAL APPEARANCE: Pleasant and appropriate, no acute distress. FOCUSED EXAM: BACK: Range of motion is functional in lateral rotation and flexion/extension. Compression along the lower lumbar facets reproduces mild spinal axial pain. Eva's point is nontender bilaterally, negative Lula's and compression test. MUSCULOSKELETAL: Diffuse muscle atrophy noted bilateral lower extremities. The patient does use a cane to ambulate. Her gait is slow but steady. NEUROLOGICAL: Radicular sensory is intact. Negative polyneuropathy. The patient is cognitively intact. DIAGNOSIS: Bilateral sacroiliac, lumbar degenerative disk disease, lumbar spondylosis and muscle conditioning. PLAN: I am concerned that the diclofenac is causing the patient's weight gain. Diclofenac will be discontinued if she will start Mobic 50 mg q. day. I did not recommend impact exercises but discussed different exercises with the use of an exercise ban. The patient reports she does have some handy from prior home PT sessions. We will see the patient in the clinic in three months' time unless otherwise indicated.[facility] [id number] NoteCONSULTATION CONSULTATION DATE: 01/08/2022 HISTORY OF PRESENT ILLNESS: This is a pleasant, 76-year-old female who returns to the clinic status post #2 right sided SI joint injection completed on 12/13/2021. The patient states 80% relief for three days. Today, her pain is rated 5/10, which is still improved and not quite back to baseline. Her pain with activities such as twisting, pushing, pulling, sitting, standing and housework will reach 7/10 with those prolonged activities. She does have paresthesia to bilateral lower legs. Current medications include Percocet 5/325 t.i.d., baclofen 10 mg b.i.d., diclofenac 50 mg b.i.d., Pamelor, gabapentin and a multivitamin regimen. The patient does ambulate with a cane for assist. She does report that today is a bad day for her, as she has had company and been overly active. Patient's REVIEW OF SYSTEMS / PAST MEDICAL HISTORY / ALLERGIES / IMAGES have been reviewed and they are noted in the chart. PHYSICAL EXAM: VITAL SIGNS: Blood pressure is 133/84. Heart rate is 74. Temperature is 97.8. She is 54 tall and weighs 96 kg. GENERAL APPEARANCE: Pleasant, appropriate, no acute distress, but uncomfortable sitting in the chair. FOCUSED EXAM - BACK: Patient is guarded in lateral rotation and flexion/extension. Reproduction of spinal axial pain noted to direct compression along the L4, L5 bilaterally, with radiation to the hips that does not extend below the knees. Eva's point is tender to the right with positive jump response. Shoulders, compression, thigh thrust and Gaenslen's test are positive on the right with a slow pattern to the groin. This is indicative of right sided sacroiliitis. MUSCULOSKELETAL: Motor is intact, 4/5 bilaterally. Muscle disuse noted. Slight looseness to bilateral quadriceps and anterior tibialis. NEUROLOGICALLY: +1 bilateral patellar and Achilles reflexes. Patchy hypoesthesia noted along L5-S1 to the left to the level of the ankle. DIAGNOSIS: Right sacroiliitis, lumbar degenerative disc disease, lumbar spondylosis, lumbar radiculitis. PLAN: We will gain authorization for a right sided SI radiofrequency ablation. After discussing with the patient, the patient does prefer to do this procedure under local anesthetic. We will decrease her Percocet to 5/325 b.i.d. on the next refill. Nutrition and vitamin importance was discussed as was supportive measures at home. Patient agrees with the plan of care and will be followed up in the office post procedure.[facility] [id number] Note CONSULTATION CONSULTATION DATE: 12/07/2021 HISTORY OF PRESENT ILLNESS: This is a pleasant, 76-year-old female, returning to the clinic for a three month follow up for her chronic lower back pain and right SI pain. Patient stated she was in the hospital earlier in the month with pneumonia that was non-COVID related. She still experiences exertional shortness of breath, but she is on the mend. She does ambulate with a cane and is balanced well with that. She has quit smoking 1 1/2 years ago. She is also in need of a Percocet and baclofen refill today. The patient has had multiple surgeries in the past, most recent helpful one was a right sided SI injection which was greatly beneficial. The patient reported significant relief. Today, her pain is 4/10 at rest and goes up to 6/10 with activity. She is complaining of increased right hip pain with activities such as housework, reaching and bending. She does use heat daily, which greatly helps her pain. Current medications include gabapentin 600 mg t.i.d., Percocet 5/325 t.i.d., baclofen, diclofenac and Pamelor. Patient's REVIEW OF SYSTEMS / PAST MEDICAL HISTORY / ALLERGIES and IMAGES have been reviewed and they are noted on the chart. PHYSICAL EXAM: VITAL SIGNS: Blood pressure 141/94, heart rate is 92. Temperature is 97.6. GENERAL APPEARANCE: Pleasant, appropriate, in no acute distress. FOCUSED EXAM - BACK: Range of motion is guarded in lateral rotation and flexion/extension. Eva's point grossly tender to the right side with positive FABERs, compression and thigh thrust test, which is concordant with sacroiliitis. Spinal axial pain reproduced to the lower lumbar facets of L4, L5 bilaterally. MUSCULOSKELETAL: Diffuse muscle atrophy is noted bilateral lower extremities. Patient does ambulate with a cane and a very slow but steady gait. NEUROLOGICAL: Radicular sensory is intact. Negative polyneuropathy. IMPRESSION: Right sided sacroiliitis, lumbar degenerative disc, lumbar spondylosis. PLAN: I discussed Percocet dose with the patient and we will decrease her dose to 5/325 b.i.d. Refill of her baclofen 10 mg q.h.s. will be sent. We will authorize for a right SI joint injection to help mitigate her pain. She will be followed up in the clinic post procedure, and patient would like to proceed. [facility] [id number] History general Narrative - Reported* Type Description Date Medical History Chronic back pain Medical History HTN Medical History anxiety Medical History DJD Medical History osteoporosis Surgical History Lumbar laminectomy and fusion Surgical History Hysterectomy (spared L ovary) Surgical History Landaverde's neuroma Hospitalization History For surgery as above Hospitalization History [facility] 03/2023 [place] [employer] Other Evaluation + Plan note Future Appointments Appointment Date:06/26/2023 02:30:00 PM Scheduled Provider:BRENDA MARIN PA-C Location:[facility] Appointment Type:URO Office Visit [facility] evaluation noteNo InformationNort [employer] Other Hospital course Narrative No data available for this section [facility] progress note No data available for this section [facility] Summary Purpose Family History No Family History Records FoundNo Family History Records Found No data available for this section No Family History Records Found Advance Directives No Advanced Directives Records FoundNo Advanced Directives Records FoundNo Advanced Directives Records Found Additional Source Comments Reason for Visit (unrecogniz ed section and content) Reason Comments Medication Refill Patient Care team informatio n (unrecognized section and content) Personnel Name: JEREMIAH REED MD Address: Address: [address] [place] [address] Personnel Name: JEREMIAH REED MD Address: Address: [address] [place] [address] INFORMATION SOURCE (unrecogn ized section and content) DATE CREATED AUTHOR 09/08/2022 [facility] DATE CREATED AUTHOR AUTHOR'S ORGANIZ ATION 04/13/2023 [facility] DATE CREATED AUTHOR AUTHOR'S ORGANIZ ATION 04/21/2023 [place] FOR RECORDS PERTAINING TO PATIENTS WHO ARE OR HAVE BEEN ENROLLED IN A CHEMICAL DEPENDENCY/SUBSTANCEABUSE PROGRAM, SOME INFORMATION MAY BE OMITTED. This clinical summary was aggregated from multiple sources. Caution should be exercised in using it in the provision of clinical care. This summary normalizes information from multiple sources, and as a consequence, information in this document may materially change the coding, format and clinical context of patient data. In addition, data may be omitted in some cases. CLINICAL DECISIONS SHOULD BE BASED ON THE PRIMARY CLINICAL RECORDS. [facility] [employer] [facility]. provides no warranty or guarantee of the accuracy or completeness of information in this document.
--- OUTSIDE RECORDS SUMMARY | 2023-05-01 15:10 | XMS_ITS | CCD ---
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 Name Role Phone Unavailable Primary Care Provider [...] DR EHSAN Haskins Consulting Unavailable REED, DR JEREMIAH Poole Primary [...] DR EHSAN Haskins Consulting Unavailable SAMSA ., LENADRA Attending Unavailable DEREK, DR JEREMIAH Poole Referring [...] MARIN Attending Unavailable BRENDA MARIN Attending Unavailable [place], Ehsan Consulting Unavailable Moussawi, Ahmad Admitting Unavailable Moussnadja, Ahmad Attending Unavailable [place], Ehsan Consulting Unavailable [place], Ehsan Consulting Unavailable [place], Ehsan Consulting Unavailable [place], Ehsan Consulting Unavailable [place], Ehsan Consulting Unavailable [place], Ehsan Consulting Unavailable [place], Ehsan Consulting Unavailable [place], Ehsan Consulting Unavailable Allergies Allergy Classification Reported Allergen(s) Allergy Type Date of Onset Reaction(s) Facility (4 sources) patient allergy list reviewed by nurse or physicia Propensity to adverse reactions Comment:Done [employer] Other (4 sources) Allergies Reconciled Propensity to adverse reactions Unknown [employer] Other Medications Current Medications Medication Drug Class(es) [...] Active oral daily for 30 *Reorder from [employer] for eRx and Interaction Alerts* Apr, Active Start: 02-11-2019 take [address] [facility] once daily amLODIPine 2.5 mg Tab 5 [...] Entry Oral for 0 *Pick strength-form from [employer] for eRX* Mar, Active Start: 03-31-2021 take [...] for 0 duration 5 years *Reorder from [employer] for eRx and Interaction Alerts* Nov, Active [...] day(s), # 30 tab(s), Refills(s) 11, Pharmacy: [facility], 165, cm, 06/21/22 14:53:00 EST, Height/Length Dosing, 87, kg, 06/21/22 14:53:00 EST, Weight Dosing Start Date: 06/21/22 Stop Date: 06/16/23 Status: Ordered Tudorza Pressair 400mcg/actuat (4 sources) Start: 04-12-2022 take 1 puff(s) by inhalation twice daily Tudorza Pressair 400mcg/actuat Tudorza Pressair 400mcg/actuat, 1 (one) Puff BID # 1, 04/12/2022, Ref. x12. 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 therapy; Translations: [OTH GRADES 1 THRU 6 HOME TEACHER CURRENT DRUG THERAPY] Onset: 01-09-2022 Episodic Other [...] Correspondence Off iceabena 04-19-2023 Insurance Correspondence Office [id number]#1.00TIFF Normal [facility] Discharge Instructionson Discharge Instructions [id number]#1.00TIFF Normal [facility] Outside Recordson 04-14-2023 Outside Records [id number]#1.00TIFF Normal [facility] BMPon 04-13-2023 Anion gap [Moles/Vol] 14 mmol/L Normal 6-16 [facility] Comment on above: Performed By: #### 2 840487, 8385551, [id number] #### [facility] [address] [place] [address] Calcium [Mass/Vol] 9.1 mg/dL Normal 8.9-11.1 [facility] Comment on above: Performed By: #### 2 501888, 9308687, 58320822 #### [facility] [address] [place] [address] Chloride [Moles/Vol] 114 mmol/L High 101-111 [facility] Comment on above: Performed By: #### 2 830070, 8501965, 06497186 #### [facility] [address] [place] [address] CO2 [Moles/Vol] 20 mmol/L Low 21-31 [facility] Comment on above: Performed By: #### 2 615200, 7032522, 82235003 #### [facility] [address] [place] [address] Creatinine [Mass/Vol] 1.2 mg/dL Normal 0.5-1.3 [facility] Comment on above: Performed By: #### 2 320987, 4428673, 80046520 #### [facility] [address] [place] [address] Glucose [Mass/Vol] 96 mg/dL Normal 55-199 [facility] Comment on above: Result Comment: If t his glucose result represents a fasting glucose, interpretation should refer to the following reference range: 55-99 mg/dL Performed By: #### 2 114300, 4596303, 37578536 #### [facility] [address] [place] [address] Potassium [Moles/Vol] 3.9 mmol/L Normal 3.5-5.3 [facility] Comment on above: Performed By: #### 2 835585, 7842781, 23475826 #### [facility] [address] [place] [address] Sodium [Moles/Vol] 144 mmol/L Normal 135-145 [facility] Comment on above: Performed By: #### 2 050356, 7480480, 53819633 #### [facility] [address] [place] [address] Urea nitrogen [Mass/Vol] 29 mg/dL High 5-21 [facility] Comment on above: Performed By: #### 2 411131, 5638050, 54732145 #### [facility] [address] [place] [address] Urea nitrogen/Creatinine [Mass ratio] 24 No Units High 10-20 [facility] Comment on above: Performed By: #### 2 455057, 7918452, 68336704 #### [facility] [address] [place] [address] CHEMISTRYOrdered By: SYSTEM SYSTEM on 04-13-2023 Anion gap [Moles/Vol] 14 mmol/L Normal 6 - 16 mEq/L [facility] Remisol Calcium [Mass/Vol] 9.1 mg/dL Normal 8.9 - 11. 1 mg/dL [facility] Remisol Chloride [Moles/Vol] 114 mmol/L High 101 [...] in LDL [Mass/Vol] 73 mg/dL Normal <=129mg/dL [facility] Remisol Cholesterol in VLDL [Mass/Vol] 21 mg/dL Normal 7 - 40 mg/dL [facility] CO2 [Moles/Vol] 20 mmol/L Low 21 - 31 mmol/L [facility] Creatinine [Mass/Vol] 1.2 mg/dL Normal 0.5 - 1.3 mg/d L [facility] GFR/1.73 sq M.predicted among non-blacks MDRD (S/P/Bld) [Vol rate/Area] 47 mL/min/1.73 m2 Low >=59mL/min/1.73 m2 [facility] Chem S Comment on above: Interpretive Data: [...] Triglyceride [Mass/Vol] 106 mg/dL Normal <=149mg/dL [facility] Remisol Urea nitrogen [Mass/Vol] 29 mg/dL High [...] oral tablet) glucosamine oxymetazoline nasal (Afrin 0.05% [place]) Procedure History Cystourethroscopy with dilation of urethral [...] Pending Diagnostic Test Results None Pharmacy Information [facility] [place] Discharge Instructions Follow up appts as writtenNo driving until cleared by PCP or neuroTake all medications as ordered, monitor prn medication use Previously Scheduled Follow-Up Appointments Sunday 1:00 PM EST With: MIAH ROE, BRENDA Poole Where: [facility] Normal [facility] ED Note-Physicianon 04-13-20 ED Note-Physician Basic Information [...] had a urinary tract infection diagnosed at [facility] for which she is on antibiotics. She [...] deep vein thrombosis (DVT) prophylaxis (Z79.899: Other skilled nursing (current) drug therapy) Depression, unspecified (F32.A: Depression, [...] 500 mL 500 mL, 500 mL, IV [id number] units/mLInjection [F], 5000 unit(s), SubCutaneous oxym0.05Spr [F], [...] uret (more content not included)... Normal [facility] Comment on above: Result Comment: Elec tronically Signed By: Abran Holguin DO\.br\Date and Time Signed: 04/12/23 22:13 EST Inpatient Clinical Summaryon 04-13-2023 Inpatient Clinical Summary [address] [address] Clinical Summary Person Information: Name: AARON JJ Age: 78 Years : 1945 Sex: Female PCP: JEREMIAH REDE MD Marital Status: Race: White Ethnicity: Non- or Language: Lao Visit Id: Visit Reason: Altered mental status; AMS Speciality: Acuity: Enc Type: Observation Med Service: Medical Arrival: 04/12/2023 12:15:14 Discharge: Dispo Type: Admitted as IP to this Hosp Address: [address] [place] [address] [address] [place] [id number] Provider Notes: Diagnosis: 1:AMS (altered mental status); [...] up: With: Address: When: Ehsan Blair MD [place] [phone] Within 1 to 2 weeks Comments: This office is closed on Fridays. Please call the office on Sunday April 16, 2023 for a follow up appiontment. Thank you. With: Address: When: JEREMIAH DEREK [address] [place], [place] [address] [facility] () Within 2 to 4 days Comments: Call for followup appointment With: Address: When: [facility] Comments: Call for followup appointment for anxiety/depression care. Type Location Start Finish State URO Office Visit [facility] 06/05/2023 1:00 PM 06/05/2023 1:15 PM Confirmed Patient Education Information: Confusion aspirin Normal [facility] Inpatient Patient Summaryon 04-13-2023 Inpatient Patient Summary [place] [id number] Patient Discharge Instructions PERSON INFORMATION Name: AARON [...] With: Address: When: Johnnie BERNAL, ALPHONSE Choi [address] [address] Within 1 to 2 weeks Comments: This office is closed on Fridays. Please call the office on Sunday April 16, 2023 for a follow up appiontment. Thank you. With: Address: When: JEREMIAH REED [address] [place] [address] Business (1) Within 2 to 4 days Comments: Call for followup appointment With: Address: When: [facility] Comments: Call for followup appointment for anxiety/depression care. In the event that this physician does not participate in your insurance network, please consult with your insurance company to find a nearby participating provider. Type Location Start [facility] URO Office Visit [facility] 06/05/2023 1:00 PM 06/05/2023 1:15 PM Confirmed [...] Mouth 2 adán (more content not included)... [facility] Interdisciplinary Note - Danie e Manageron 04-13-2023 Interdisciplinary Note - Danie e Asset Protection Representative Pt is awake and alert in bed, previously rounded with Radha PENNY. Pending Neurology to see and pending MRI. Pending therapy evals, Observation status reviewed [facility] form reviewed, signed by pt and original provided. PT is independent from home, family at bedside and will transport at [place], Declines any concerns or anticipate DC needs. . PCP verified and insurance information reviewed and DME discussed. Contact information provided and white board updated. CRM returned to pt room to discuss DC plans. PT= HH and pt is agreeable to HH at [place], prefers to use [facility] as she has used in past, referral to resource center, anticipate DC home today. Nursing and PHYSICIAN OFFICE REP updated. [facility] Comment on above: Result Comment: Elec tronically Signed By: Thu ALVARES, Sallie\.br\Date and Time Signed: 04/13/23 12:17 EST Interdisciplinary Note - Ashly n 04-13-2023 Interdisciplinary Note - OT OT [facility] six clicks score 21/24 = no further OT needs. Patient requires Dist sup w/ transfers. completes Adls w/ dist sup after set up. Dc inpatient OT services as pt appears close to baseline status and has all bathroom dme already in place at home. [facility] Interdisciplinary Note - Soc ial [...] of any substances. SW will remain available. [facility] Lipid Panelon 04-13-2023 Cholesterol [Mass/Vol] 164 mg/dL Normal 120-200 [facility] Comment on above: Performed By: #### 2 229738, 6713741, 36509932 #### [facility] [address] [place] [address] Cholesterol in HDL [Mass/Vol] 62 mg/dL Invalid Interpretation Code [facility] Comment on above: Result Comment: HDL > or equal to 60 mg/dL: Low cardiovascular risk HDL < 40 mg/dL : High cardiovascular risk Performed By: #### 2 409036, 8194850, 71799381 #### [facility] [address] [place] [address] Cholesterol in LDL [Mass/Vol] 73 mg/dL Normal <=129 [facility] Comment on above: Performed By: #### 2 393241, 6845541, 62991483 #### [facility] [address] [place] [address] Cholesterol in VLDL [Mass/Vol] 21 mg/dL Normal 7-40 [facility] Comment on above: Performed By: #### 2 316582, 1553030, 05238734 #### [facility] [address] [place] [address] Triglyceride [Mass/Vol] 106 mg/dL Normal <=149 [facility] Comment on above: Performed By: #### 2 583621, 2204663, 54743357 #### [facility] [address] [place] [address] MRI Brain w/o Contraston MRI Brain w/o [...] (Electronic Signature): 04/13/2023 12:03 pm Signed by: aJe Barry MD Transcribed by: LESLEY Technologist: MAXI Technical Comments None Normal [facility] Message from Medicareon 120 Message from Medicare [id number]#1.00TIFF Normal [facility] Monitor Recordon 04-13-2023 Monitor Record [id number]#1.00TIFF Normal [facility] Monitor Record [id number]#1.00TIFF Normal [facility] Monitor Record [id number]#1.00TIFF Normal [facility] eGFRon 04-13-2023 GFR/1.73 sq M.predicted dann g non-blacks MDRD (S/P/Bld) [Vol rate/Area] 47 mL/min/1.73 m2 Low >=59 [facility] Comment on above: Order Comment: Order added by Discern Expert. Result Comment: Auto Camp Attendant sally kidney disease could be indicated at eGFR's of less than 60 mL/min/1.73m2. Kidney failure is indicated at less than 15 mL/min/1.73m2. Performed By: #### 2 833752, 6088572, 79813220 #### [facility] [address] [place] [address] Auto Diffon 04-12-2023 Basophils/100 WBC (Bld) 0.4 % Normal 0.0-2.0 [facility] Comment on above: Order Comment: Order Added by Discern Expert. Performed By: #### 1 3483064, 4118161, 73202313, 5333679, 82863904, 524729480, 81136699, 3904632, 4792790, 2487050, 6607111, 0504260 ####[facility] [address] [place] [address] Basophils/Leukocytes Auto (B ld) [Pure # fraction] 0.1 E9/L Normal 0.0-0.2 [facility] Comment on above: Order Comment: Order Added by Discern Expert. Performed By: #### 1 0295300, 4795145, 42828249, 0765313, 36013543, 623610891, 55350433, 1139168, 1302875, 8568882, 9381807, 6967492 ####[facility] [address] [place] [address] Eosinophils/100 WBC (Bld) 0.1 % Normal 0.0-8.0 [facility] Comment on above: Order Comment: Order Added by Discern Expert. Performed By: #### 1 1413492, 6465770, 68630407, 8197299, 68223673, 090344082, 80713579, 6356876, 4621038, 6490538, 5905961, 8470756 ####[facility] [address] [place] [address] Eosinophils/Leukocytes Auto (Bld) [Pure # fraction] 0.0 E9/L Normal 0.0-0.5 [facility] Comment on above: Order Comment: Order Added by Discern Expert. Performed By: #### 1 4321215, 5953719, 51188471, 6998050, 24314720, 948028373, 16957979, 2343869, 6798373, 4015520, 5950288, 4607925 ####[facility] [address] [place] [address] Lymphocytes/100 WBC (Bld) 9.7 % Low 14.0-50.0 [facility] Comment on above: Order Comment: Order Added by Discern Expert. Performed By: #### 1 8527023, 9518583, 49073165, 4722953, 98403242, 894623485, 08808641, 3329126, 4481040, 0319493, 1883258, 8077039 ####[facility] [address] [place] [address] Lymphocytes/Leukocytes Auto (Bld) [Pure # fraction] 1.5 E9/L Normal 1.0-4.0 [facility] Comment on above: Order Comment: Order Added by Discern Expert. Performed By: #### 1 8848771, 1167146, 46293906, 5178336, 32566901, 276961045, 42014757, 3044833, 5186885, 7953306, 6701401, 9453026 ####[facility] [address] [place] [address] Monocytes/100 WBC (Bld) 7.8 % Normal 4.0-14.0 [facility] Comment on above: Order Comment: Order Added by Discern Expert. Performed By: #### 1 8983422, 6850120, 41322166, 6615987, 31721071, 379688162, 27386330, 1469097, 7524223, 0073203, 8173783, 0935189 ####[facility] [address] [place] [address] Monocytes/Leukocytes Auto (B ld) [Pure # fraction] 1.2 E9/L High 0.2-1.0 [facility] Comment on above: Order Comment: Order Added by Discern Expert. Performed By: #### 1 3444760, 9081790, 23417594, 7938564, 04557417, 995034047, 53347217, 4934645, 8689468, 0140073, 4417135, 1817200 ####[facility] [address] [place] [address] Neutrophils/100 WBC (Bld) 82.0 % High 36.0-75.0 [facility] Comment on above: Order Comment: Order Added by Discern Expert. Performed By: #### 1 5386108, 4775068, 99903915, 7302140, 07510575, 053660653, 96227455, 8896575, 5619795, 9038521, 3511703, 9394816 ####[facility] [address] [place] [address] Neutrophils/Leukocytes Auto (Bld) [Pure # fraction] 12.4 E9/L High 2.0-7.5 [facility] Comment on above: Order Comment: Order Added by Discern Expert. Performed By: #### 1 7432611, 0813077, 53772567, 7416247, 89555052, 779272556, 24389926, 5611482, 4695872, 0952051, 0567194, 1650303 ####[facility] [address] [place] [address] BMPon 04-12-2023 Creatinine [Mass/Vol] 1.8 mg/dL High 0.5-1.3 [facility] Comment on above: Performed By: #### 1 4693092, 3922644, 75174688, 9222924, 85321488, 429990129, 88934134, 0970784, 0347364, 0202568, 3845498, 4779150 ####[facility] [address] [place] [address] Urea nitrogen [Mass/Vol] 39 mg/dL High 5-21 [facility] Comment on above: Performed By: #### 1 4959761, 7999624, 21309121, 9493010, 67455383, 675018498, 44101575, 7876432, 9508820, 1386902, 3728930, 4025736 ####[facility] [address] [place] [address] Urea nitrogen/Creatinine [Mass ratio] 22 No Units High 10-20 [facility] Comment on above: Performed By: #### 1 2460108, 6329408, 26264436, 9121140, 09574327, 676806266, 49430396, 8471484, 5849563, 8411318, 7278637, 0401401 ####[facility] [address] [place] [address] Anion gap [Moles/Vol] 16 mmol/L Normal 6-16 [facility] Comment on above: Performed By: #### 1 9338774, 4957839, 21250484, 9456065, 46423036, 224074050, 69591934, 3685377, 8788064, 7407394, 9883228, 2608782 ####[facility] [address] [place] [address] Calcium [Mass/Vol] 10.0 mg/dL Normal 8.9-11.1 [facility] Comment on above: Performed By: #### 1 9027663, 0245019, 89718612, 4271796, 52325850, 303879452, 47518100, 8439766, 3501638, 6062624, 1400340, 5163161 ####[facility] [address] [place] [address] Chloride [Moles/Vol] 109 mmol/L Normal 101-111 [facility] Comment on above: Performed By: #### 1 2185121, 5347497, 01254461, 1193932, 78342789, 922482846, 03920663, 8131152, 5112362, 4272980, 1630869, 4003573 ####[facility] [address] [place] [address] CO2 [Moles/Vol] 23 mmol/L Normal 21-31 [facility] Comment on above: Performed By: #### 1 6467154, 0147756, 01859049, 1920279, 18549459, 201286520, 12733891, 0016270, 8466884, 9307144, 5648472, 0945503 ####[facility] [address] [place] [address] Glucose [Mass/Vol] 89 mg/dL Normal 55-199 [facility] Comment on above: Result Comment: If t his glucose result represents a fasting glucose, interpretation should refer to the following reference range: 55-99 mg/dL Performed By: #### 1 1193465, 8222725, 92980450, 8271963, 99437375, 999104585, 24374422, 3047621, 8414935, 5624478, 6762165, 7032788 ####[facility] [address] [place] [address] Potassium [Moles/Vol] 4.3 mmol/L Normal 3.5-5.3 [facility] Comment on above: Performed By: #### 1 8682069, 9534867, 24421550, 0497159, 27841536, 936450983, 85321243, 9308722, 0204704, 7211738, 0361093, 6042192 ####[facility] [address] [place] [address] Sodium [Moles/Vol] 144 mmol/L Normal 135-145 [facility] Comment on above: Performed By: #### 1 2740212, 5005516, 13510177, 7041025, 07801893, 898979791, 05119344, 4595308, 9412803, 0776009, 2335370, 3276971 ####[facility] [address] [place] [address] CBC w/ Auto Diffon 3 Erythrocyte distribution wid th (RBC) [Ratio] 15.3 % High 10.9-14.2 [facility] Comment on above: Performed By: #### 1 9531950, 2739066, 71787634, 6027189, 64201582, 381503789, 10573109, 6653194, 6263017, 7994321, 0461383, 7858559 #### [facility] [address] [place] [address] Hematocrit (Bld) [Volume fraction] 44.4 % Normal 34.0-46.0 [facility] Comment on above: Performed By: #### 1 5896048, 5896896, 94620617, 6702056, 35403880, 218205479, 15395541, 8267667, 7968256, 9867109, 8931485, 3090314 #### [facility] [address] [place] [address] Hemoglobin (Bld) [Mass/Vol] 14.0 g/dL Normal 12.0-16. 0 [facility] Comment on above: Performed By: #### 1 3366759, 6780525, 67054455, 0690879, 70985760, 838286674, 54885576, 6982680, 8749880, 6832780, 5393363, 2988414 #### [facility] [address] [place] [address] MCH (RBC) [Entitic mass] 28.5 pg Normal 27.0-34.0 [facility] Comment on above: Performed By: #### 1 4438187, 6942905, 49932311, 8836186, 68481701, 457952490, 61681433, 0963503, 3145787, 2068502, 5031982, 9495511 #### [facility] [address] [place] [address] MCHC (RBC) [Mass/Vol] 31.6 g/dL Normal 31.4-36.0 [facility] Comment on above: Performed By: #### 1 9518278, 0092718, 20835473, 4501038, 26517156, 726327530, 45345093, 8212910, 2132071, 0123736, 0458611, 3423492 #### [facility] [address] [place] [address] MCV (RBC) [Entitic vol] 89.9 fL Normal 80.0-100.0 [facility] Comment on above: Performed By: #### 1 1619333, 0418967, 06606453, 8467398, 54374587, 319058933, 79595229, 5471661, 2274226, 2759390, 0870443, 4733441 #### [facility] [address] [place] [address] Platelet mean volume (Bld) [Entitic vol] 9.8 fL Normal 6.4-10.8 [facility] Comment on above: Performed By: #### 1 8801613, 1835131, 32944112, 8344552, 92329025, 290379902, 93067792, 9249885, 0037321, 5147193, 0288124, 6671256 #### [facility] [address] [place] [address] Platelets (Bld) [#/Vol] 285.0 E9/L Normal 150.0-500.0 [facility] Comment on above: Performed By: #### 1 1036637, 4244680, 85365799, 3641596, 12577456, 130854401, 40833009, 7368561, 4656277, 8254328, 3321389, 0181522 #### [facility] [address] [place] [address] RBC (Bld) [#/Vol] 4.9 E12/L Normal 4.3-5.9 [facility] Comment on above: Performed By: #### 1 0068957, 7049513, 59336438, 7737517, 01968166, 591263806, 22670637, 1114290, 2943022, 0664187, 0126971, 2372625 #### [facility] [address] [place] [address] WBC corrected for nucl RBC A uto (Bld) [#/Vol] 15.1 E9/L High 4.0-11.0 [facility] Comment on above: Performed By: #### 1 7617693, 1822603, 74508169, 4872927, 67068568, 889377602, 93448666, 9582776, 1011604, 6619512, 1577021, 0980962 #### [facility] [address] [place] [address] CHEMISTRYOrdered By: SYSTEM SYSTEM on 04-12-2023 Amphetamines [...] Sensitivity Troponin I Instructions For Use, [place], December 2017) TSH Qn 0.52 m[IU]/L Normal 0.34 - 5.60 mcIU/mL FTM C Remisol Urea nitrogen [Mass/Vol] 39 mg/dL High 5 - 21 mg/d L [facility] Remisol Urea nitrogen/Creatinine [Ma ss ratio] 22 mg/mg High 10 - 20 [facility] Remisol CHEMISTRYOrdered By: Shauna kendall on 04-12-2023 HbA1c (Bld) [Mass fraction] 5.9 % Normal <=5.9% [facility] ChemAutoSS CHEMISTRYOrdered By: Lab ROP User on 04-12-2023 Glucose [Mass/Vol] 88 mg/dL Normal 55 - 99 mg/dL [facility] C POC Subsection Comment on above: Result Comment: Jose matos RN/ POC Username [place] Invalid Interpre tation Code [facility] POC Subsection Sodium [Moles/Vol] [id number] mmol/L Invalid I nterpretation Code [facility] POC Subsection Sodium [Moles/Vol] 173500861 mmol/L Invalid Inte rpretation Code [facility] POC Subsection COAGULATIONOrdered By: Myra Grayson on 04-12-2023 aPTT Coag (PPP) [Time] 29.5 s Normal 25.1 - 36.5 s econd(s) [facility] Auto Coag Comment on above: Interpretive Data: [...] the same coagulation reagent and instrumentation as [facility]. Currently there are no coagulation studies available worldwide for children to 14 days, and no normal ranges. Heparin therapeutic range (represented by Anti-Factor Xa activity of 0.2 - 0.4 U/mL) corresponds to PTT of 56.6 - 109.0 sec. INR Coag (PPP) [Relative time] 0.9 {INR} Invalid Interpre tation Code [facility] Auto Coag Comment on above: Interpretive Data: I NR results are specifically intended to assess patients stabilized on long-term Anticoagulation therapy suggested INR s Less Intensive Anticoagulation 2.0 3.0 Conventional Range 3.0 4.5 PT Coag (PPP) [Time] 10.4 s Normal 9.4 - 12.5 seco nd(s) [facility] Auto Coag Comment on above: Interpretive Data: [...] the same coagulation reagent and instrumentation as [facility]. Currently there are no coagulation studies available [...] MD Transcribed by: LESLEY Technologist: SOFIA Guaman [facility] CT Spine Cervical w/o Contra ston 04-12-2023 [...] MD Transcribed by: LESLEY Technologist: SOFIA Guaman [facility] Capillary Glucose POCon 03-16 Glucose [Mass/Vol] 88 mg/dL Normal 55-99 [facility] Comment on above: Result Comment: Jose matos RN/ Performed By: #### 2 [id number] #### [facility] [address] [place] [address] Consent for Treatmenton 03-16 Consent for Treatment [id number] Normal [facility] ED Clinical Summaryon 2022 ED Clinical Summary (Inserted Image. Chelly ble to display) [address] [address] ED Clinical Summary Person Information Name: AARON JJ [place] Age: 78 Years : 1945 Sex: Female Language: Lao PCP: JEREMIAH REED MD Marital Status: Visit Id: Visit Reason: Altered mental status; AMS Speciality: Acuity: 2 Enc Type: Observation Med Service: Emergency Arrival: 04/12/2023 12:15:14 Discharge: LOS: 000 04:45 Checkin: 04/12/2023 12:15:14 Checkout: 04/12/2023 17:00:36 Dispo Type: Admitted as IP to this [facility] EVENTS: Event Name Event Status Request [...] Labs Collected 04/12/2023 16:57:50 04/12/2023 16:57:50 [facility] [address] [place] [id number] PHYS DOC NOTES: MEDICAL INFORMATION: Prescriptions Given: [...] vein thrombosis (DVT) prophylaxis; Depression, unspecified Normal [facility] ED Patient Education Noteon 04-12-2023 ED Patient Education Note Normal [facility] ED Patient Summaryon 023 ED Patient Summary [place] [id number] Patient Discharge Instructions Person Information Name: АННАKYLEA Flori Age: 78 Years Arrival Date: 04/12/2023 12:15:14 Discharge Diagnosis: 1:AMS (altered mental status); 2:Elevated serum creatinine; 3:HTN (hypertension); 4:Anxiety and depression; 5:Peripheral neuropathy; 6:Chronic GERD; 7:OAB (overactive bladder); 8:Obesity; 9:On deep vein thrombosis (DVT) prophylaxis; Depression, unspecified Primary Care Physician: JEREMIAH REED MD Provider Information Primary Provider: Abran Holguin DO Advanced Flight Engineer Helicopter:None The exam and treatment you received in the Emergency Department were for an urgent problem and are not intended as complete care. It is important that you follow up with a doctor, nurse practitioner, or physician?s help desk assistant for ongoing care. If your symptoms [...] opioids can be used to help relieve xxiyyuys-xt-cxicpe pain and are often prescribed following a [...] be struggling with addiction, tell your health emergency care tech and ask for guidance or (more content not included)... Normal [facility] Ethanolon 04-12-2023 Ethanol [Mass/Vol] mg/dL Normal <=7 [facility] Comment on above: Performed By: #### 2 [id number] ####[facility] [address] [place] [address] Folateon 04-12-2023 Folate [Mass/Vol] ng/mL Normal >=6.7 [facility] Comment on above: Performed By: #### 1 0131828, 4506550, 09561860, 5989359, 80906446, 674644945, 85941380, 0642421, 3523574, 7195753, 7495338, 9397672 ####[facility] [address] [place] [address] HEMATOLOGYOrdered By: SYSTEM SYSTEM on 04-12-2023 Basophils/100 [...] 04-12-2023 Albumin [Mass/Vol] 4.4 g/dL Normal 3.3-5.0 [facility] Comment on above: Performed By: #### 1 6271995, 9892529, 75969048, 4507181, 34523609, 011969617, 52818621, 2247249, 7146709, 5162726, 8603888, 5457692 ####[facility] [address] [place] [address] Albumin/Globulin (S) [Mass conc ratio] 1.3 Normal 1.1-2.2 [facility] Comment on above: Performed By: #### 1 1403778, 4935123, 71222430, 2695510, 42687675, 744627203, 93239625, 8369299, 7030900, 7207400, 4109394, 8720773 ####[place] [address] [place] [address] ALP [Catalytic activity/Vol] 78 Int._Unit/L Normal 21- 98 [facility] Comment on above: Performed By: #### 1 2091699, 6104273, 82391557, 7826679, 06660398, 361288927, 00775273, 8786554, 1443512, 4501136, 5842081, 5919345 ####[facility] [address] [place] [address] ALT No additional P-5'-P [Catalytic activity/Vol] 22 Int._Unit/L Normal 6-46 [facility] Comment on above: Performed By: #### 1 3930100, 6227915, 69399701, 1853325, 54856303, 143197863, 70292960, 3625974, 0414700, 3327052, 9026028, 8857823 ####[facility] [address] [place] [address] AST [Catalytic activity/Vol] 25 Int._Unit/L Normal 5-4 3 [facility] Comment on above: Performed By: #### 1 7073963, 9134333, 13059974, 6127507, 32507017, 583802878, 28480851, 5367812, 4286721, 7132313, 8904958, 5915682 ####[facility] [address] [place] [address] Bilirubin [Mass/Vol] 0.7 mg/dL Normal 0.0-1.1 [facility] Comment on above: Performed By: #### 1 2818367, 4923116, 29516134, 1956729, 59028779, 639282003, 94257321, 3952947, 9872178, 1218563, 5001646, 1232723 ####[facility] [address] [place] [address] Bilirubin.direct [Mass/Vol] 0.1 mg/dL Normal 0.1-0.4 [facility] Comment on above: Performed By: #### 1 7860815, 3316001, 93452243, 6396913, 52833285, 971313547, 07276179, 7521960, 5220166, 1510435, 0144492, 2799472 ####[facility] [address] [place] [address] Bilirubin.indirect [Mass or moles/Vol] 0.6 mg/dL Normal 0.1-0.9 [facility] Comment on above: Performed By: #### 1 9235719, 5195924, 00274937, 0305939, 60144092, 505967376, 15463781, 6910425, 2312257, 8543247, 6039278, 2439882 ####[facility] [address] [place] [address] Globulin (S) [Mass/Vol] 3.3 g/dL Normal 1.4-4.0 [facility] Comment on above: Performed By: #### 1 4796906, 6541010, 54979477, 9843494, 48199180, 186059615, 14330362, 3222683, 6158378, 8035682, 0126090, 7262879 ####[facility] [address] [place] [address] Protein [Mass/Vol] 7.7 g/dL Normal 6.0-7.8 [facility] Comment on above: Performed By: #### 1 9198126, 4636110, 86159639, 0548400, 36045532, 613381582, 77531087, 4483367, 3748190, 5343616, 8126368, 8827943 ####[facility] [address] [place] [address] VmtR0lyz 04-12-2023 HbA1c (Bld) [Mass fraction] 5.9 % Normal <=5.9 [facility] Comment on above: Performed By: #### 1 7743131, 9868332, 17310950, 7008301, 29992193, 921648113, 62940581, 8778140, 8345726, 3169161, 9393060, 0370254 ####[facility] [address] [place] [address] Magnesiumon 04-12-2023 Magnesium [Mass/Vol] 2.0 mg/dL Normal 1.3-2.4 [facility] Comment on above: Performed By: #### 1 1933010, 1174774, 96581520, 8467760, 58719530, 142508189, 07686889, 7504436, 8988437, 9065780, 9943687, 5826151 ####[facility] [address] [place] [address] Monitor Recordon 04-12-2023 Monitor Record [id number] Normal [facility] PT & PTTon 04-12-2023 aPTT Coag (PPP) [Time] 29.5 second(s) Normal 25.1-36.5 [facility] Comment on above: Result Comment: Para meter [...] the same coagulation reagent and instrumentation as [facility]. Currently there are no coagulation studies available worldwide for children to 14 days, and no normal ranges. Heparin therapeutic range (represented by Anti-Factor Xa activity of 0.2 - 0.4 U/mL) corresponds to PTT of 56.6 - 109.0 sec. Performed By: #### 1 9231204, 5951933, 18387148, 2075618, 31512751, 398727835, 17032690, 2244938, 1694841, 2659068, 2470912, 9776043 ####[facility] [address] [place] [address] INR Coag (PPP) [Relative time] 0.9 {INR} Invalid Interpretation Code [facility] Comment on above: Result Comment: INR results are specifically intended to assess patients stabilized on long-term Anticoagulation therapy suggested INR?s ?Less Intensive Anticoagulation? 2.0 ? 3.0 Conventional Range 3.0 ? 4.5 Performed By: #### 1 6170784, 6589329, 25634630, 8707142, 72292598, 215800788, 45604408, 0232657, 1986116, 2249061, 1112124, 0096849 ####[facility] [address] [place] [address] PT Coag (PPP) [Time] 10.4 second(s) Normal 9.4-12.5 [facility] Comment on above: Result Comment: 15 d [...] the same coagulation reagent and instrumentation as [facility]. Currently there are no coagulation studies available worldwide for children to 14 days, and no normal ranges. Performed By: #### 1 2671031, 5592807, 79124716, 9135161, 10075008, 953633218, 56240617, 2134156, 4481031, 0004542, 9378667, 4341267 ####[facility] [address] [place] [address] Pre-Arrival Noteon Pre-Arrival Note Pre-Arrival Summary Name: , Current Date: 04/12/2023 12:18:15 EST Gender: Female Date of : Age: 88 Pre-Arrival Type: EMS ETA: 04/12/2023 12:29:00 EST Primary Care Physician: Presenting Problem: altered mental status Pre-Arrival User: Paul ALVARES, Brenda Talbert Referring Source: Location: Completion Date/Time: 04/12/2023 11:59:00 [facility] Emergency Department Pre-Hospital Report Form Vital Signs: Pre-Hospital Report: Treatment in Route: Response to Treatment: Misc. Issues: Normal [facility] RAD - MRI Screening Formon 1 06-12-2022 RAD - MRI Screening Form [id number] Normal [facility] TSH With T4fr Reflexon 04-12 TSH Qn 0.52 m[IU]/L Normal 0.34-5.60 [facility] Comment on above: Performed By: #### 1 6340037, 0816177, 72086209, 0623851, 68258404, 200272970, 83501834, 7661018, 7420324, 2078244, 4252289, 7197946 ####[facility] [address] [place] [address] Troponin 0 Hr.on 04-12-2023 Troponin I.cardiac [Mass/Vol] 11.90 pg/mL Normal 10.10 -27.10 [facility] Comment on above: Order Comment: tez LINTON RN is drawing labs and sending [id number] 04/12/2023 12:26:28 EST Result Comment: The 95% CI (Confidence Interval) PPV (Positive Predictive Value) for myocardial infarction in females is 38 pg/mL, in males 51 pg/mL. The results should be used in conjunction with clinical conditions of myocardial infarction. (Access High Sensitivity Troponin I Instructions For Use, Laly SPARQ, December 2017) Performed By: #### 1 9440209, 0593965, 35103547, 5316772, 05678162, 081167610, 83841555, 7495049, 3555941, 1203767, 8509523, 5204897 ####[facility] [address] [place] [address] U Drug Screenon 04-12-2023 Benzodiazepines Ql (U) Positive Abnormal Negative Fi [facility] Comment on above: Result Comment: Crit ical Result UD_BENZ:POS Called to ABRAN HOLGUIN AT ER by URSULA LOZANO And Read Back For Confirmation at: 04/12/2023 15:35:32\Unconfirmed by alternate method\Results verified by repeat analysis\No confirmation requested by Physican Negative Cutoff: <200 ng/mL Performed By: #### 2 931864 #### [facility] [address] [place] [address] Amphetamines Screen method > 1000 ng/mL Ql (U) Negative Normal Negative [facility] Comment on above: Result Comment: Nega tive Cutoff: <1000 ng/mL Performed By: #### 2 818620 #### [facility] [address] [place] [address] Barbiturates Screen Ql (U) Negative Normal Negative [facility] Comment on above: Result Comment: Nega tive Cutoff: <200 ng/mL Performed By: #### 2 097057 #### [facility] [address] [place] [address] Cocaine Ql (U) Negative Normal Negative [facility] Comment on above: Result Comment: Nega tive Cutoff: <300 ng/mL Performed By: #### 2 233882 #### [facility] [address] [place] [address] Opiates Screen Ql (U) Negative Normal Negative [facility] Comment on above: Result Comment: Nega tive Cutoff: <300 ng/mL Performed By: #### 2 408835 #### [facility] [address] [place] [address] Phencyclidine Screen method >25 ng/mL Ql (U) Negative Normal Negative [facility] Comment on above: Result Comment: Nega tive Cutoff: <25 ng/mL These drug screen results are to be used for medical (i.e., treatment) purposes only. Unconfirmed drug screening results must not be used for non-medical purposes (e.g., employment testing, legal testing). Performed By: #### 2 332319 #### [facility] [address] [place] [address] Tetrahydrocannabinol Screen method >50 ng/mL Ql (U) Negative Normal Negative [facility] Comment on above: Result Comment: Nega tive Cutoff: <50 ng/mL Performed By: #### 2 525976 #### [facility] [address] [place] [address] UA With Cult Reflexon 2022 Bacteria LM Ql (Urine sed) TRACE Normal Trace [facility] Comment on above: Performed By: #### 1 6292673 ####[facility] [address] [place] [address] Bilirubin Ql (U) Negative Normal Negative [facility] Comment on above: Performed By: #### 1 8633345 ####[facility] [address] [place] [address] Clarity (U) CLEAR Normal Clear [facility] Comment on above: Performed By: #### 1 9504013 ####[facility] [address] [place] [address] Color (U) YELLOW Normal Yellow [facility] Comment on above: Performed By: #### 1 6839728 ####[address] [address] Epithelial cells.squamous LM .HPF (Urine sed) [#/Area] 0-2 Normal 0-2 [facility] Comment on above: Performed By: #### 1 9900739 ####[address] [address] Glucose Test strip (U) [Mass/Vol] Negative Normal Negative [facility] Comment on above: Performed By: #### 1 5271586 ####[address] [address] Hemoglobin Ql (U) Negative Normal Negative [facility] Comment on above: Performed By: #### 1 0549218 ####[facility] [address] [place] [address] Ketones (U) [Mass/Vol] TRACE Abnormal Negative Fi [facility] Comment on above: Performed By: #### 1 3554344 ####[address] [address] Tabor.plasma/Tabor.RBC (Bld) [Mass ratio] 0-3 N ormal 0-3 [facility] Comment on above: Performed By: #### 1 3146785 ####[facility] [address] [place] [address] Mucus Ql (Urine sed) TRACE Normal [facility] Comment on above: Performed By: #### 1 2491292 ####[place] [address] [place] [address] Nitrite Ql (U) Negative Normal Negative [facility] Comment on above: Performed By: #### 1 0227650 ####[facility] [address] [place] [address] pH (U) 5.0 [pH] Invalid Interpretation Code 5.0-9.0 [facility] Comment on above: Performed By: #### 1 2094061 ####[facility] [address] [place] [address] Protein (U) [Mass/Vol] TRACE Abnormal Negative Fi [facility] Comment on above: Performed By: #### 1 8615888 ####[facility] [address] [place] [address] Specific gravity (U) [Rel density] >=1.030 Invalid Interpretation Code 1.005-1.030 [facility] Comment on above: Performed By: #### 1 2304594 ####[facility] [address] [place] [address] Type of Urine collection method Catheter Normal [facility] Comment on above: Performed By: #### 1 8398278 ####[facility] [address] [place] [address] Urobilinogen Qn (U) 0.2 {Nevaeh'U}/dL Normal 0.0-1.0 [facility] Comment on above: Performed By: #### 1 6159842 ####[facility] [address] [place] [address] WBC Auto Ql (U) Negative Normal Negative [facility] Comment on above: Performed By: #### 1 6288741 ####[facility] [address] [place] [address] WBC casts LM.LPF (Urine sed) [#/Area] 0-3 Normal [facility] Comment on above: Performed By: #### 1 5894404 ####[facility] [address] [place] [address] WBC LM.HPF (Urine sed) [#/Area] 0-5 Normal 0-5 [facility] Comment on above: Performed By: #### 1 0838674 ####[facility] [address] [place] [address] URINALYSISOrdered By: Bonny Workman on 04-12-2023 Bacteria [...] Interpretation Code Negative [facility] UA Auto SS Tabor.plasma/Lithi um.RBC (Bld) [Mass ratio] 0-3 /HPF Normal [...] [facility] UA Auto SS Urobilinogen Qn (U) 0.8815076 {Nevaeh'U}/dL Normal 0.0 - 1.0 EU/dL [facility] UA Auto SS WBC Auto Ql (U) Negative (04/12/23 2:32 PM) Normal Negative [facility] UA Auto SS WBC casts LM.LPF (Urine sed) [#/Area] 0-3 (04/12/23 2:32 PM) Normal [facility] UA Auto SS WBC LM.HPF (Urine sed) [#/Area] 0-5 /HPF Normal 0-5/HPF [facility] UA Auto SS Vit B12on 04-12-2023 Cobalamin (Vitamin B12) [Mass/Vol] 1018 pg/mL Normal 50-1500 [facility] Comment on above: Performed By: #### 1 3288996, 6940100, 50054034, 5032810, 14663054, 119262460, 84568192, 1415690, 2215109, 0588653, 9142224, 0611614 ####[facility] [address] [place] [address] XR Chest Single Viewon 04-12 XR Chest [...] mGy = na DAP = na Normal [facility] eGFRon 04-12-2023 GFR/1.73 sq M.predicted dann g non-blacks MDRD (S/P/Bld) [Vol rate/Area] 29 mL/min/1.73 m2 Low >=59 [facility] Comment on above: Order Comment: Order added by Discern Expert. Result Comment: Auto Camp Attendant sally kidney disease could be indicated at eGFR's of less than 60 mL/min/1.73m2. Kidney failure is indicated at less than 15 mL/min/1.73m2. Performed By: #### 1 2458398, 8228843, 85637464, 5102214, 08050197, 122121636, 22317386, 5405219, 9757390, 7691735, 2695106, 2105247 ####[facility] [address] [place] [address] XR CSPINE OBL FLEX_EXTon XR CSPINE OBL [...] Serena TEJEDA Date: 2022-09-02 00:37 Normal [facility] MRI SHOULDER RT WO CONon MRI [...] EHSAN MILLER Date: 2022-08-22 09:25 Normal [facility] XR SHOULDER RT 2V or >on XR [...] of the right shoulder. Electronically authenticated by: BRENT MALDONADO Date: 2022-08-10 22:45 Normal [facility] Ambulatory Visit Summaryon 0 06-21-2022 Ambulatory Visit Summary АННАHERMELINDAAARON J :1945 Visit Date:06/21/2022 Ambulatory Visit Instructions Your Diagnosis OAB (overactive bladder) Urethral stricture Tests Performed Urnls Dip Stick Auto w/o Microscopy POC 839[address] Your Care Team Attending Physician - MIAH [...] BRENDA MARIN PA-C Where: [facility] Patient Education 06-21-19 Patient Education Obstetrics and [...] Take ove (more content not included)... Normal [facility] Urology Office/Clinic Noteon 06-21-2022 Urology Office/Clinic Note [...] Contact Information MIAH ROE, BRENDA Poole, [address] [place] [address] Additional Instructions: f/u 1 yr Patient Education Overactive Bladder, Adult Documentation recorded by the scribe Alma Greco accurately reflects the services(s) I performed and decisions made by me. Authenticated by Brenda Mrain PA-C on 06/21/2022 15:22:58. I, Alma Greco, [...] Urine (more content not included)... Normal [facility] Comment on above: Result Comment: Elec tronically Signed By: BRENDA MAIRN PA-C\.br\Date and Time Signed: 06/21/22 15:23 EST\.br\Electronically [...] EHSAN MILLER Date: 2022-06-12 16:56 Normal [address] [facility] VIT D 1 25 DIHYDROXYon 04-24 Calcitriol(1,25 di-OH Vit D) 91.0 pg/mL Critically high 24 .8-81.[address] [facility] Comment on above: Performed By: #### V [id number] #### [facility] [address] [place] [address] Dr. Helio Cee CULTURE URINEon 04-23-2022 CULTURE [...] F Trimethoprim/Sulfamethoxazole <=20 S F Normal T [facility] Comment on above: Performed By: #### U RCX #### [facility] [address] [place] [address] Dr. Helio Cee CBC AUTO DIFFon 04-21-2022 BASO # 0.0 103/ul Normal 0.0-0.1 [facility] Comment on above: Performed By: #### E RUR #### [facility] [address] [place] [address] Dr. Helio Cee Basophils/100 WBC (Bld) 0.4 % Normal 0.2-2.0 [facility] Comment on above: Performed By: #### E RUR #### [facility] [address] [place] [address] Dr. Helio Cee EO # 0.4 103/ul Normal 0.0-0.7 [facility] Comment on above: Performed By: #### E RUR #### [facility] [address] [place] [address] Dr. Helio Cee Eosinophils/100 WBC (Bld) 4.0 % Normal 0.9-7.0 [facility] Comment on above: Performed By: #### E RUR #### [facility] [address] [place] [address] Dr. Helio Cee Erythrocyte distribution wid th (RBC) [Ratio] 15.2 % Critically high 11.0-15.0 [facility] Comment on above: Performed By: #### E RUR #### [facility] [address] [address] [address] Helio Cee Hematocrit (Bld) [Volume fraction] 41.0 % Normal 3 6.0-48.0 [facility] Comment on above: Performed By: #### E RUR #### [facility] [address] [place] [address] Dr. Helio Cee Hemoglobin (Bld) [Mass/Vol] 12.9 g/dL Normal 12.0-16. 0 [facility] Comment on above: Performed By: #### E RUR #### [facility] [address] [address] [address] Helio Cee IG # 0.04 10e3/ul Critically high 0.00-0.03 [facility] Comment on above: Performed By: #### E RUR #### [facility] [address] [place] [address] Dr. Helio Cee IG % 0.4 % Normal 0.0-0.5 [facility] Comment on above: Performed By: #### E RUR #### [facility] [address] [place] [address] Dr. Helio Cee LYMPH # 1.1 103/ul Critically low 1.2-3.8 [facility] Comment on above: Performed By: #### E RUR #### [facility] [address] [place] [address] Dr. Helio Cee Lymphocytes/100 WBC (Bld) 11.9 % Critically low 20.5-6 0.0 [facility] Comment on above: Performed By: #### E RUR #### [facility] [address] [place] [address] Dr. Helio Cee MANUAL DIFF REQ NO Normal [facility] Comment on above: Performed By: #### E RUR #### [facility] [address] [place] [address] Dr. Helio Cee MCH (RBC) [Entitic mass] 29.0 pg Normal 26.7-34.0 [facility] Comment on above: Performed By: #### E RUR #### [facility] [address] [place] [address] Dr. Helio Cee MCHC (RBC) [Mass/Vol] 31.5 g/dL Normal 29.9-35.2 [facility] Comment on above: Performed By: #### E RUR #### [facility] [address] [place] [address] Dr. Helio Cee MCV (RBC) [Entitic vol] 92.1 fL Normal 81.0-99.0 [facility] Comment on above: Performed By: #### E RUR #### [facility] [address] [place] [address] Dr. Helio Cee MONO # 0.4 103/ul Normal 0.3-0.8 [facility] Comment on above: Performed By: #### E RUR #### [facility] [address] [place] [address] Dr. Helio Cee Monocytes/100 WBC (Bld) 4.4 % Normal 1.7-12.0 [facility] Comment on above: Performed By: #### E RUR #### [facility] [address] [place] [address] Dr. Helio Cee NEUT # 7.3 103/ul Critically high 1.4-6.5 [facility] Comment on above: Performed By: #### E RUR #### [facility] [address] [place] [address] Dr. Helio Cee Neutrophils/100 WBC (Bld) 78.9 % Critically high 43.0- 75.0 [facility] Comment on above: Performed By: #### E RUR #### [facility] [address] [place] [address] Dr. Helio Cee Platelet mean volume (Bld) [ Entitic vol] 10.6 fL Normal 9.5-13.5 [facility] Comment on above: Performed By: #### E RUR #### [facility] [address] [place] [address] Dr. Helio Cee PLT 269 103/ul Normal 150-450 [facility] Comment on above: Performed By: #### E RUR #### [facility] [address] [address] [address] Helio Cee RBC 4.45 106/ul Normal 4.20-5.40 [facility] Comment on above: Performed By: #### E RUR #### [facility] [address] [place], [place] [address] Dr. Helio Cee WBC 9.2 103/ul Normal 4.0-11.0 [facility] Comment on above: Performed By: #### E RUR #### [facility] [address] [address] [address] Helio Cee LIPID PROFILEon 04-21-2022 CHOL-HDL RATIO NORM SEE BELOW Normal [facility] Comment on above: Result Comment: 3.3 - 4.4 LOW RISK 4.4 - 7.1 AVERAGE RISK 7.1 - 11.0 MODERATE RISK >11.0 HIGH RISK Performed By: #### T SH, LIPID, CMP ####[facility] [address] [address]Dr. Helio Cee Cholesterol [Mass/Vol] 146 mg/dL Normal <=200 Th [facility] Comment on above: Performed By: #### T CAITLIN, LIPID, CMP ####[facility] [address] [address]Dr. Helio Cee Cholesterol in HDL [Mass/Vol] 63 mg/dL Critically high 4 0-60 [facility] Comment on above: Performed By: #### T SH, LIPID, CMP ####[facility] [address] [id number]. Helio Cee Cholesterol in LDL [Mass/Vol] 66.6 mg/dL Normal [facility] Comment on above: Performed By: #### T SH, LIPID, CMP ####[facility] [address] [address]Dr. Helio Cee Cholesterol.total/Cholestero l in HDL [Mass ratio] 2.3 {ratio} Normal [facility] Comment on above: Performed By: #### T SH, LIPID, CMP ####[facility] [address] [place] [id number]. Helio Cee HDL NORMAL > or = 60 mg/dl - LO W CARDIOVASCULAR RISK <40 mg/dl - HIGH CARDIOVASCULAR RISK Normal [facility] Comment on above: Performed By: #### T CAITLIN, LIPID, CMP ####[facility] [address] [address]Dr. Helio Cee LDL CALC NORMAL SEE BELOW Normal [facility] Comment on above: Result Comment: <100 mg/dl OPTIMAL 100 - 129 mg/dl NEAR OR ABOVE OPTIMAL 130 - 159 mg/dl BORDERLINE HIGH 160 - 189 mg/dl HIGH >190 mg/dl VERY HIGH Performed By: #### T CAITLIN, LIPID, CMP ####[facility] [address] [address]Dr. Helio Cee Triglyceride [Mass/Vol] 82 mg/dL Normal <=150 [facility] Comment on above: Performed By: #### T CAITLIN, LIPID, CMP ####[facility] [address] [address]Dr. Helio Cee VLDL CALC 16.4 mg/dL Normal The [facility]ital Comment on above: Performed By: #### T CAITLIN, LIPID, CMP ####[facility] [address] [place], [place] [address]Dr. Helio Cee PROF 14(COMP METB)on 022 Albumin [Mass/Vol] 3.5 g/dL Normal 3.4-5.0 [facility] Comment on above: Performed By: #### T CAITLIN, LIPID, CMP ####[facility] [address] [address]Dr. Helio Cee Albumin/Globulin [Mass ratio] 1.0 {ratio} Normal [facility] Comment on above: Performed By: #### T CAITLIN, LIPID, CMP ####[facility] [address] [address]Dr. Helio Cee ALP [Catalytic activity/Vol] 98 U/L Normal 46-[address] [facility] Comment on above: Performed By: #### T CAITLIN, LIPID, CMP ####[facility] [address] [place] [id number]. Helio Cee ALT [Catalytic activity/Vol] 23 U/L Normal 14-[address] [facility] Comment on above: Performed By: #### T CAITLIN, LIPID, CMP ####[facility] [address] [address]Dr. Helio Cee Anion gap [Moles/Vol] 12.2 mmol/L Normal [facility] Comment on above: Performed By: #### T CAITLIN, LIPID, CMP ####[facility] [address] [address]Dr. Helio Cee AST [Catalytic activity/Vol] 15 U/L Normal 15-37 [facility] Comment on above: Performed By: #### T CAITLIN, LIPID, CMP ####[facility] [address] [address]Dr. Helio Cee Bilirubin [Mass/Vol] 0.5 mg/dL Normal 0.2-1.0 [facility] Comment on above: Performed By: #### T CAITLIN, LIPID, CMP ####[facility] [address] [place] [address]Dr. Helio Cee Calcium [Mass/Vol] 9.0 mg/dL Normal 8.5-10.1 [facility] Comment on above: Performed By: #### T CAITLIN, LIPID, CMP ####[facility] [address] [place] [address]Dr. Helio Cee Chloride [Moles/Vol] 109 mmol/L Critically high 98-[address] [facility] Comment on above: Performed By: #### T CAITLIN, LIPID, CMP ####[facility] [address] [place] [address]Dr. Helio Cee CO2 [Moles/Vol] 26.5 mmol/L Normal 21.0-32.0 [facility] Comment on above: Performed By: #### T CAITLIN, LIPID, CMP ####[facility] [address] [place] [address]Dr. Helio Cee Creatinine [Mass/Vol] 1.22 mg/dL Critically high 0.55-1.02 [facility] Comment on above: Performed By: #### T SH, LIPID, CMP ####[facility] [address] [place] [address]Dr. Helio Cee EGFR-AF FILIPINO 52 mL/min/1.73m2 Critically low >=60 [facility] Comment on above: Performed By: #### T SH, LIPID, CMP ####[facility] [address] [place] [address]Dr. Claudettemagan Cee EGFR-NON AF FILIPINO 43 mL/min/1.73m2 Critically low >=60 [facility] Comment on above: Performed By: #### T SH, LIPID, CMP ####[facility] [address] [place], [place] [address]Dr. Helio Cee Globulin (S) [Mass/Vol] 3.4 g/dL Normal [facility] Comment on above: Performed By: #### T SH, LIPID, CMP ####[facility] [address] [place], [place] [address]Dr. Helio Cee Glucose [Mass/Vol] 103 mg/dL Normal 74-106 The [facility] Comment on above: Performed By: #### T SH, LIPID, CMP ####[facility] X[address] [place], [place] [address]Dr. Claudettemagan Cee Potassium [Moles/Vol] 4.7 mmol/L Normal 3.5-5.[address] [facility] Comment on above: Performed By: #### T SH, LIPID, CMP ####[facility] [address] [place], [place] [address]Dr. Helio Cee Protein [Mass/Vol] 6.9 g/dL Normal 6.4-8.2 The [facility] Comment on above: Performed By: #### T SH, LIPID, CMP ####[facility] [address] [place], [place] [address]Dr. Helio Cee Sodium [Moles/Vol] 143 mmol/L Normal 136-145 The [facility] Comment on above: Performed By: #### T SH, LIPID, CMP ####[facility] [address] [place], [place] [address]Dr. Helio Cee Urea nitrogen [Mass/Vol] 22.0 mg/dL Critically high 7.0-18 .[address] [facility] Comment on above: Performed By: #### T CAITLIN, LIPID, CMP ####[facility] [address] [place] [address]Dr. Helio Cee Urea nitrogen/Creatinine [Mass ratio] 18.0 mg/mg Normal The [facility] Comment on above: Performed By: #### T CAITLIN, LIPID, CMP ####[facility] [address] [place], [place] [address]Dr. Helio Cee TSHon 04-21-2022 TSH 0.592 uIU/mL Normal 0.358-3.740 The [facility] Comment on above: Performed By: #### T CAITLIN, LIPID, CMP ####[facility] [address] [place], [place] [address]Dr. Helio Cee UA RANDOM W/MICROSCOPICon BACTERIA NONE SEEN Normal NONE SEEN The [facility] Comment on above: Performed By: #### U AMIC ####[facility] [address] [place], [place] [address]Dr. Helio Cee Bilirubin Ql (U) Negative Normal NEGATIVE The [facility] Comment on above: Performed By: #### U AMIC ####[facility] [address] [place], [place] [address]Dr. Helio Cee CAST NONE SEEN Normal NONE SEEN The [facility] Comment on above: Performed By: #### U AMIC ####[facility] [address] [place], [place] [address]Dr. Helio Cee Clarity (U) CLEAR Normal CLEAR The [facility] Comment on above: Performed By: #### U AMIC ####[facility] [address] [place], [place] [address]Dr. Helio Cee Color (U) DK. YELLOW Normal YELLOW The [facility] Comment on above: Performed By: #### U AMIC ####[facility] [address] [place], [place] [address]Dr. Helio Cee Crystals LM Nom (Urine sed) NONE SEEN Normal NONE SEE N The [facility] Comment on above: Performed By: #### U AMIC ####[facility] [address] [address]Dr. Helio Cee Epithelial cells LM Ql (Urine sed) RARE Normal N ONE SEEN /RARE The [facility] Comment on above: Performed By: #### U AMIC ####[facility] [address] [address]Dr. Helio Cee Glucose Ql (U) Negative Normal NEGATIVE The [facility] [place] Comment on above: Performed By: #### U AMIC ####[facility] [address] [place], [place] [address]Dr. Helio Cee Hemoglobin Ql (U) Negative Normal NEGATIVE The [facility] Comment on above: Performed By: #### U AMIC ####[facility] [address] [place], [place] [address]Dr. Helio Cee Ketones Ql (U) Negative Normal NEGATIVE The [facility] [place] Comment on above: Performed By: #### U AMIC ####[facility] [address] [place], [place] [address]Dr. Helio Cee LEUKOCYTES Negative Normal NEGATIVE The [facility] Comment on above: Performed By: #### U AMIC ####[facility] [address] [place] [id number]. Helio Cee MUCOUS TRACE Abnormal NONE SEEN The [facility] Comment on above: Performed By: #### U AMIC ####[facility] [address] [place], [place] [address]Dr. Helio Cee Nitrite Ql (U) Negative Normal NEGATIVE The [facility] [place] Comment on above: Performed By: #### U AMIC ####[facility] [address] [place], [place] [address]Dr. Helio Cee pH (U) 5.5 [pH] Normal 5-9 [facility] Comment on above: Performed By: #### U AMIC ####[facility] [address] [place], [place] [address]Dr. Helio Cee RBC 0-2 Normal 0-2 [facility] Comment on above: Performed By: #### U AMIC ####[facility] [address] [place], [place] [address]No. Helio Cee SPEC GRAVITY >=1.030 Abnormal 1.005-<=1.025 [facility] Comment on above: Performed By: #### U AMIC ####[facility] [address] [place] [id number]. Helio Cee UA PROTEIN TRACE Normal NEGATIVE/ TRACE [facility] Comment on above: Performed By: #### U AMIC ####[facility] [address] [place], [place] [address]Ud. Helio Cee Urobilinogen Qn (U) 1.0 {Nevaeh'U}/dL Normal 0.2 - 1. [address] [facility] Comment on above: Performed By: #### U AMIC ####[facility] [address] [place] [address]Dr. Helio Cee WBC NONE SEEN Normal NONE SEEN The [facility] Comment on above: Performed By: #### U AMIC ####[facility] [address] [place] [id number]. Helio Cee CT CHEST WO CONon 02-22-2022 [...] EHSAN MILLER Date: 2022-02-22 16:51 Normal [address] [facility] HEMOGLOBINon 02-22-2022 Hemoglobin (Bld) [Mass/Vol] 13.6 g/dL Normal 12.0-16. 0 [facility] Comment on above: Performed By: #### V [id number] #### [facility] [address] [place] [address] Dr. Helio Cee XR TIB_FIB RT 2Von [...] BRENT LONG Date: 2022-01-07 21:52 Normal [address] [facility] BNPon 11-22-2021 Natriuretic peptide B (Bld) [Mass/Vol] 1469.0 pg/mL Critically high <=900.0 The [facility] spital Comment on above: Performed By: #### C VDTBH #### [facility] [address] [place] [address] Dr. Helio Cee CBC AUTO DIFFon 11-22-2021 BASO # 0.1 103/ul Normal 0.0-0.1 [facility] Comment on above: Performed By: #### E RUR #### [facility] [address] [place] [address] Dr. Helio Cee Basophils/100 WBC (Bld) 0.7 % Normal 0.2-2.0 [facility] Comment on above: Performed By: #### E RUR #### [facility] [address] [place], [place] [address] Dr. Helio Cee EO # 0.2 103/ul Normal 0.0-0.7 The [facility] Comment on above: Performed By: #### E RUR #### [facility] [address] [place] [address] Dr. Helio Cee Eosinophils/100 WBC (Bld) 1.9 % Normal 0.9-7.[address] [facility] Comment on above: Performed By: #### E RUR #### [facility] [address] [place] [address] Dr. Helio Cee Erythrocyte distribution wid th (RBC) [Ratio] 14.3 % Normal 11.0-15.0 The [facility] Comment on above: Performed By: #### E RUR #### [facility] [address] [place] [address] Dr. Helio Cee Hematocrit (Bld) [Volume fraction] 37.9 % Normal 3 6.0-48.0 [facility] Comment on above: Performed By: #### E RUR #### [facility] [address] [place] [address] Dr. Helio Cee Hemoglobin (Bld) [Mass/Vol] 12.0 g/dL Normal 12.0-16. [address] [facility] Comment on above: Performed By: #### E RUR #### [facility] [address] [place] [address] Dr. Helio Cee IG # 0.10 10e3/ul Critically high 0.00-0.[address] [facility] Comment on above: Performed By: #### E RUR #### [facility] [address] [place] [address] Dr. Helio Cee IG % 1.1 % Critically high 0.0-0.5 [facility] Comment on above: Performed By: #### E RUR #### [facility] [address] [place] [address] Dr. Helio Cee LYMPH # 0.9 103/ul Critically low 1.2-3.8 The [facility] [place] Comment on above: Performed By: #### E RUR #### [facility] [address] [place] [address] Dr. Helio Cee Lymphocytes/100 WBC (Bld) 10.1 % Critically low 20.5-6 0.0 [facility] Comment on above: Performed By: #### E RUR #### [facility] [address] [place] [address] Dr. Helio Cee MANUAL DIFF REQ NO Normal [facility] Comment on above: Performed By: #### E RUR #### [facility] [address] [place] [address] Dr. Helio Cee MCH (RBC) [Entitic mass] 29.8 pg Normal 26.7-34.0 [facility] Comment on above: Performed By: #### E RUR #### [facility] [address] [place] [address] Dr. Helio Cee MCHC (RBC) [Mass/Vol] 31.7 g/dL Normal 29.9-35.2 [facility] Comment on above: Performed By: #### E RUR #### [facility] [address] [place] [address] Dr. Helio Cee MCV (RBC) [Entitic vol] 94.0 fL Normal 81.0-99.0 [facility] Comment on above: Performed By: #### E RUR #### [facility] [address] [place] [address] Dr. Helio Cee MONO # 0.7 103/ul Normal 0.3-0.8 [facility] Comment on above: Performed By: #### E RUR #### [facility] [address] [place] [address] Dr. Helio Cee Monocytes/100 WBC (Bld) 7.8 % Normal 1.7-12.0 [facility] Comment on above: Performed By: #### E RUR #### [facility] [address] [place] [address] Dr. Helio Cee NEUT # 7.2 103/ul Critically high 1.4-6.5 [facility] Comment on above: Performed By: #### E RUR #### [facility] [address] [address] [address] Helio Cee Neutrophils/100 WBC (Bld) 78.4 % Critically high 43.0- 75.[address] [facility] Comment on above: Performed By: #### E RUR #### [facility] [address] [address] [address] Helio Cee Platelet mean volume (Bld) [ Entitic vol] 10.6 fL Normal 9.5-13.5 The [facility] pital Comment on above: Performed By: #### E RUR #### [facility] [address] [place] [address] Dr. Helio Cee PLT 278 103/ul Normal 150-450 The [facility]ital Comment on above: Performed By: #### E RUR #### [facility] [address] [place] [address] Dr. Helio Cee RBC 4.03 106/ul Critically low 4.20-5.40 [facility] Comment on above: Performed By: #### E RUR #### [facility] [address] [place] [address] Dr. Helio Cee WBC 9.1 103/ul Normal 4.0-11.0 [facility] Comment on above: Performed By: #### E RUR #### [facility] [address] [place] [address] Dr. Helio Cee CTA CHEST WO W [...] Jay BARAHONA Date: 2021-11-22 16:47 Normal [address] [facility] CULTURE BLOODon 11-22-2021 Microscopic examination of blood, culture Culture Observations: NO GROWTH AT 5 DAYS. Normal The [facility] al Comment on above: Performed By: #### B [id number] ####[facility] [address] [place], [place] [address]FkDr. Helio Cee Microscopic examination of blood, culture Culture Observations: NO GROWTH AT 5 DAYS. Normal The [facility] Comment on above: Performed By: #### B [id number] #### [facility] [address] [place], [place] [address] Dr. Helio Cee Covid-19 PCR ([facility])on 11-11 SARS-CoV-2 (COVID-19) RNA KIMMY+probe Ql (Unsp spec) Not detected Normal NOT DETECTED The [facility] Comment on above: Result Comment: When [...] for this test is supported by the [employer]'s declaration that [...] used). Performed By: #### C VDTBH #### [facility] [address] [place] [address] Dr. Helio Cee LACTATE/LACTIC ACIDon 2021 Lactate [Moles/Vol] mmol/L Critically low 0.4-1.9 [facility] Comment on above: Performed By: #### L ACT ####[facility] [address] [address]Dr. Helio Cee PROF 14(COMP METB)on 022 Albumin [Mass/Vol] 3.1 g/dL Critically low 3.4-5.0 [facility] Comment on above: Performed By: #### V [id number] #### [facility] [address] [place] [address] Dr. Helio Cee Albumin/Globulin [Mass ratio] 0.8 {ratio} Normal [facility] Comment on above: Performed By: #### V [id number] #### [facility] [address] [place] [address] Dr. Helio Cee ALP [Catalytic activity/Vol] 92 U/L Normal 46-116 [facility] Comment on above: Performed By: #### V [id number] #### [facility] [address] [place] [address] Dr. Helio Cee ALT [Catalytic activity/Vol] 23 U/L Normal 14-59 [facility] Comment on above: Performed By: #### V [id number] #### [facility] [address] [address] [address] Helio Cee Anion gap [Moles/Vol] 12.8 mmol/L Normal Th e [facility] Comment on above: Performed By: #### V [id number] #### [facility] [address] [address] [address] Helio Cee AST [Catalytic activity/Vol] 16 U/L Normal 15-37 [facility] Comment on above: Performed By: #### V [id number] #### [facility] [address] [address] [address] Helio Cee Bilirubin [Mass/Vol] 0.6 mg/dL Normal 0.2-1.0 [facility] Comment on above: Performed By: #### V [id number] #### [facility] [address] [address] [address] Helio Cee Calcium [Mass/Vol] 9.5 mg/dL Normal 8.5-10.1 [facility] Comment on above: Performed By: #### V [id number] #### [facility] [address] [place] [address] Dr. Helio Cee Chloride [Moles/Vol] 106 mmol/L Normal 98-107 [facility] Comment on above: Performed By: #### V [id number] #### [facility] [address] [address] [address] Helio Cee CO2 [Moles/Vol] 25.1 mmol/L Normal 21.0-32.0 [facility] Comment on above: Performed By: #### V [id number] #### [facility] [address] [address] [address] Helio Cee Creatinine [Mass/Vol] 1.06 mg/dL Critically high 0.55-1.02 [facility] Comment on above: Performed By: #### V [id number] #### [facility] [address] [address] [address] Helio Cee EGFR-AF FILIPINO >60 Normal >=60 [facility] Comment on above: Performed By: #### V [id number] #### [facility] [address] [place] [address] [address] Helio Cee EGFR-NON AF FILIPINO 51 mL/min/1.73m2 Critically low >=60 [facility] Comment on above: Performed By: #### V [id number] #### [facility] [address] [address] [address] Helio Cee Globulin (S) [Mass/Vol] 4.1 g/dL Normal [facility] Comment on above: Performed By: #### V [id number] #### [facility] [address] [address] [address] Helio Cee Glucose [Mass/Vol] 99 mg/dL Normal 74-106 [facility] Comment on above: Performed By: #### V [id number] #### [facility] [address] [address] [address] Helio Cee Potassium [Moles/Vol] 3.9 mmol/L Normal 3.5-5.1 [facility] Comment on above: Performed By: #### V [id number] #### [facility] [address] [address] [address] Helio Cee Protein [Mass/Vol] 7.2 g/dL Normal 6.4-8.2 [facility] Comment on above: Performed By: #### V [id number] #### [facility] [address] [address] [address] Helio Cee Sodium [Moles/Vol] 140 mmol/L Normal 136-145 [facility] Comment on above: Performed By: #### V [id number] #### [facility] [address] [address] [address] Helio Cee Urea nitrogen [Mass/Vol] 15.0 mg/dL Normal 7.0-18.0 [facility] Comment on above: Performed By: #### V [id number] #### [facility] [address] [address] [address] Helio Cee Urea nitrogen/Creatinine [Mass ratio] 14.2 mg/mg Normal [facility] Comment on above: Performed By: #### V [id number] #### [facility] [address] [address] [address] Helio Cee TROPONIN, HIGH SENSITIVITYon 11-22-2021 HSTROP 11.6 pg/mL Normal 4.0-51.3 [facility] Comment on above: Result Comment: CUT- OFF POINTS HAVE BEEN ESTABLISHED BASED ON THE FOURTH UNIVERSAL DEFINITIONS OF MYOCARDIAL INFARCTION. THE UPPER REFERENCE LIMIT (URL) OF TROPONIN, DEFINED THE 99TH PERCENTILE OF cTnI DISTRIBUTION IN A REFERENCE POPULATION, HAS BEEN CONFIRMED THE DECISION THRESHOLD FOR NC DIAGNOSIS. Performed By: #### V [id number] #### [facility] [address] [address] [address] Helio Cee XR CHEST 2 Von [...] ISAC CONNOR Date: 2021-11-22 14:20 Normal [facility] BNPon 11-21-2021 Natriuretic peptide B (Bld) [Mass/Vol] 953.0 pg/mL Critically high <=900.0 [facility] pital Comment on above: Performed By: #### E RUR #### [facility] [address] [address] [address] Helio Cee CBC AUTO DIFFon 11-21-2021 BASO # 0.0 103/ul Normal 0.0-0.1 [facility] Comment on above: Performed By: #### E RUR #### [facility] [address] [address] [address] Helio Cee Basophils/100 WBC (Bld) 0.4 % Normal 0.2-2.0 [facility] Comment on above: Performed By: #### E RUR #### [facility] [address] [place] [address] Dr. Helio Cee EO # 0.1 103/ul Normal 0.0-0.7 [facility] Comment on above: Performed By: #### E RUR #### [facility] [address] [place] [address] Dr. Helio Cee Eosinophils/100 WBC (Bld) 1.1 % Normal 0.9-7.0 [facility] Comment on above: Performed By: #### E RUR #### [facility] [address] [place] [address] Dr. Helio Cee Erythrocyte distribution wid th (RBC) [Ratio] 14.6 % Normal 11.0-15.0 [facility] Comment on above: Performed By: #### E RUR #### [facility] [address] [place] [address] Dr. Helio Cee Hematocrit (Bld) [Volume fraction] 35.2 % Critically low 36.0-48.0 [facility] Comment on above: Performed By: #### E RUR #### [facility] [address] [place] [address] Dr. Helio Cee Hemoglobin (Bld) [Mass/Vol] 10.9 g/dL Critically low 12.0 -16.0 [facility] Comment on above: Performed By: #### E RUR #### [facility] [address] [place] [address] Dr. Helio Cee IG # 0.07 10e3/ul Critically high 0.00-0.03 [facility] Comment on above: Performed By: #### E RUR #### [facility] [address] [place] [address] Dr. Helio Cee IG % 0.7 % Critically high 0.0-0.5 [facility] Comment on above: Performed By: #### E RUR #### [facility] [address] [place] [address] Dr. Helio Cee LYMPH # 1.4 103/ul Normal 1.2-3.8 [facility] Comment on above: Performed By: #### E RUR #### [facility] [address] [place] [address] Dr. Heilo Cee Lymphocytes/100 WBC (Bld) 13.3 % Critically low 20.5-6 0.0 [facility] Comment on above: Performed By: #### E RUR #### [facility] [address] [place] [address] Dr. Helio Cee MANUAL DIFF REQ NO Normal [facility] Comment on above: Performed By: #### E RUR #### [facility] [address] [place] [address] Dr. Helio Cee MCH (RBC) [Entitic mass] 29.5 pg Normal 26.7-34.0 [facility] Comment on above: Performed By: #### E RUR #### [facility] [address] [place] [address] Dr. Helio Cee MCHC (RBC) [Mass/Vol] 31.0 g/dL Normal 29.9-35.2 [facility] Comment on above: Performed By: #### E RUR #### [facility] [address] [place] [address] Dr. Helio Cee MCV (RBC) [Entitic vol] 95.4 fL Normal 81.0-99.0 [facility] Comment on above: Performed By: #### E RUR #### [facility] [address] [place] [address] Dr. Helio Cee MONO # 0.8 103/ul Normal 0.3-0.8 [facility] Comment on above: Performed By: #### E RUR #### [facility] [address] [place] [address] Dr. Helio Cee Monocytes/100 WBC (Bld) 7.3 % Normal 1.7-12.0 [facility] Comment on above: Performed By: #### E RUR #### [facility] [address] [place] [address] Dr. Helio Cee NEUT # 7.9 103/ul Critically high 1.4-6.5 [facility] Comment on above: Performed By: #### E RUR #### [facility] [address] [place] [address] Dr. Helio Cee Neutrophils/100 WBC (Bld) 77.2 % Critically high 43.0- 75.0 [facility] Comment on above: Performed By: #### E RUR #### [facility] [address] [place] [address] Dr. Helio Cee Platelet mean volume (Bld) [ Entitic vol] 11.1 fL Normal 9.5-13.5 [facility] Comment on above: Performed By: #### E RUR #### [facility] [address] [place] [address] Dr. Helio Cee PLT 245 103/ul Normal 150-450 [facility] Comment on above: Performed By: #### E RUR #### [facility] [address] [place] [address] Dr. Helio Cee RBC 3.69 106/ul Critically low 4.20-5.40 [facility] Comment on above: Performed By: #### E RUR #### [facility] [address] [place] [address] Dr. Helio Cee WBC 10.2 103/ul Normal 4.0-11.0 [facility] Comment on above: Performed By: #### E RUR #### [facility] [address] [place] [address] Dr. Helio Cee PROF 14(COMP METB)on 022 Albumin [Mass/Vol] 2.6 g/dL Critically low 3.4-5.0 [facility] Comment on above: Performed By: #### V [id number] #### [facility] [address] [place] [address] Dr. Helio Cee Albumin/Globulin [Mass ratio] 0.7 {ratio} Normal [facility] Comment on above: Performed By: #### V [id number] #### [facility] [address] [address] [address] Helio Cee ALP [Catalytic activity/Vol] 75 U/L Normal 46-116 [facility] Comment on above: Performed By: #### V [id number] #### [facility] [address] [place] [address] Dr. Helio Cee ALT [Catalytic activity/Vol] 19 U/L Normal 14-59 [facility] Comment on above: Performed By: #### V [id number] #### [facility] [address] [place] [address] Dr. Helio Cee Anion gap [Moles/Vol] 11.7 mmol/L Normal Th [facility] Comment on above: Performed By: #### V [id number] #### [facility] [address] [place] [address] Dr. Helio Cee AST [Catalytic activity/Vol] 8 U/L Critically low 15- 37 [facility] Comment on above: Performed By: #### V [id number] #### [facility] [address] [place] [address] Dr. Helio Cee Bilirubin [Mass/Vol] 0.3 mg/dL Normal 0.2-1.0 [facility] Comment on above: Performed By: #### V [id number] #### [facility] [address] [place] [address] Dr. Helio Cee Calcium [Mass/Vol] 9.0 mg/dL Normal 8.5-10.1 [facility] Comment on above: Performed By: #### V [id number] #### [facility] [address] [place] [address] Dr. Helio Cee Chloride [Moles/Vol] 107 mmol/L Normal 98-107 [facility] Comment on above: Performed By: #### V [id number] #### [facility] [address] [place] [address] Dr. Helio Cee CO2 [Moles/Vol] 24.7 mmol/L Normal 21.0-32.0 [facility] Comment on above: Performed By: #### V [id number] #### [facility] [address] [place] [address] Dr. Helio Cee Creatinine [Mass/Vol] 0.91 mg/dL Normal 0.55-1.02 [facility] Comment on above: Performed By: #### V [id number] #### [facility] [address] [place] [address] Dr. Helio Cee EGFR-AF FILIPINO >60 Normal >=60 [facility] Comment on above: Performed By: #### V [id number] #### [facility] [address] [address] [address] Helio Cee EGFR-NON AF FILIPINO 60 mL/min/1.73m2 Normal >=60 [facility] Comment on above: Performed By: #### V [id number] #### [facility] [address] [place] [address] Dr. Helio Cee Globulin (S) [Mass/Vol] 3.9 g/dL Normal [facility] Comment on above: Performed By: #### V [id number] #### [facility] [address] [place] [address] Dr. Helio Cee Glucose [Mass/Vol] 131 mg/dL Critically high 74-106 [facility] Comment on above: Performed By: #### V [id number] #### [facility] [address] [place] [address] Dr. Helio Cee Potassium [Moles/Vol] 3.4 mmol/L Critically low 3.5-5.1 [facility] Comment on above: Performed By: #### V [id number] #### [facility] [address] [place] [address] Dr. Helio Cee Protein [Mass/Vol] 6.5 g/dL Normal 6.4-8.2 [facility] Comment on above: Performed By: #### V [id number] #### [facility] [address] [place] [address] Dr. Helio Cee Sodium [Moles/Vol] 140 mmol/L Normal 136-145 [facility] Comment on above: Performed By: #### V [id number] #### [facility] [address] [place] [address] Dr. Helio Cee Urea nitrogen [Mass/Vol] 14.0 mg/dL Normal 7.0-18.[address] [facility] Comment on above: Performed By: #### V [id number] #### [facility] [address] [place] [address] Dr. Helio Cee Urea nitrogen/Creatinine [Mass ratio] 15.4 mg/mg Normal [facility] Comment on above: Performed By: #### V [id number] #### [facility] [address] [place] [address] Dr. Helio Cee BNPon 11-20-2021 Natriuretic peptide B (Bld) [Mass/Vol] 781.0 pg/mL Normal <=900.0 [facility] Comment on above: Performed By: #### E RUR #### [facility] [address] [place] [address] Dr. Helio Cee CBC AUTO DIFFon 11-20-2021 BASO # 0.0 103/ul Normal 0.0-0.1 [facility] Comment on above: Performed By: #### V [id number] #### [facility] [address] [place] [address] Dr. Helio Cee Basophils/100 WBC (Bld) 0.3 % Normal 0.2-2.0 [facility] Comment on above: Performed By: #### V [id number] #### [facility] [address] [place] [address] Dr. Helio Cee EO # 0.1 103/ul Normal 0.0-0.7 [facility] Comment on above: Performed By: #### V [id number] #### [facility] [address] [place] [address] Dr. Helio Cee Eosinophils/100 WBC (Bld) 0.5 % Critically low 0.9-7. [address] [facility] Comment on above: Performed By: #### V [id number] #### [facility] [address] [place] [address] Dr. Helio Cee Erythrocyte distribution wid th (RBC) [Ratio] 14.5 % Normal 11.0-15.0 [facility] Comment on above: Performed By: #### V [id number] #### [facility] [address] [address] [address] Helio Cee Hematocrit (Bld) [Volume fraction] 36.6 % Normal 3 6.0-48.0 [facility] Comment on above: Performed By: #### V [id number] #### [facility] [address] [place] [address] Dr. Helio Cee Hemoglobin (Bld) [Mass/Vol] 11.5 g/dL Critically low 12.0 -16.0 [facility] Comment on above: Performed By: #### V [id number] #### [facility] [address] [place] [address] Dr. Helio Cee IG # 0.07 10e3/ul Critically high 0.00-0.03 [facility] Comment on above: Performed By: #### V [id number] #### [facility] [address] [place] [address] Dr. Helio Cee IG % 0.5 % Normal 0.0-0.5 [facility] Comment on above: Performed By: #### V [id number] #### [facility] [address] [place] [address] Dr. Helio Cee LYMPH # 1.2 103/ul Normal 1.2-3.8 [facility] Comment on above: Performed By: #### V [id number] #### [facility] [address] [place] [address] Dr. Helio Cee Lymphocytes/100 WBC (Bld) 9.5 % Critically low 20.5-6 0.0 [facility] Comment on above: Performed By: #### V [id number] #### [facility] [address] [place] [address] Dr. Helio Cee MANUAL DIFF REQ NO Normal [facility] Comment on above: Performed By: #### V [id number] #### [facility] [address] [place] [address] Dr. Helio Cee MCH (RBC) [Entitic mass] 30.2 pg Normal 26.7-34.0 [facility] Comment on above: Performed By: #### V [id number] #### [facility] [address] [place] [address] Dr. Helio Cee MCHC (RBC) [Mass/Vol] 31.4 g/dL Normal 29.9-35.2 [facility] Comment on above: Performed By: #### V [id number] #### [facility] [address] [place] [address] Dr. Helio Cee MCV (RBC) [Entitic vol] 96.1 fL Normal 81.0-99.0 [facility] Comment on above: Performed By: #### V [id number] #### [facility] [address] [place] [address] Dr. Helio Cee MONO # 0.7 103/ul Normal 0.3-0.8 [facility] Comment on above: Performed By: #### V [id number] #### [facility] [address] [place] [address] Dr. Helio Cee Monocytes/100 WBC (Bld) 5.7 % Normal 1.7-12.0 [facility] Comment on above: Performed By: #### V [id number] #### [facility] [address] [place] [address] Dr. Helio Cee NEUT # 10.8 103/ul Critically high 1.4-6.5 [facility] Comment on above: Performed By: #### V [id number] #### [facility] [address] [place] [address] Dr. Helio Cee Neutrophils/100 WBC (Bld) 83.5 % Critically high 43.0- 75.0 [facility] Comment on above: Performed By: #### V [id number] #### [facility] [address] [place] [address] Dr. Helio Cee Platelet mean volume (Bld) [ Entitic vol] 11.1 fL Normal 9.5-13.5 [facility] Comment on above: Performed By: #### V [id number] #### [facility] [address] [place] [address] Dr. Helio Cee PLT 231 103/ul Normal 150-450 [facility] Comment on above: Performed By: #### V [id number] #### [facility] [address] [address] [address] Helio Cee RBC 3.81 106/ul Critically low 4.20-5.40 [facility] Comment on above: Performed By: #### V [id number] #### [facility] [address] [address] [address] Helio Cee WBC 13.0 103/ul Critically high 4.0-11.0 [facility] Comment on above: Performed By: #### V [id number] #### [facility] [address] [place] [address] Dr. Helio Cee PROF 14(COMP METB)on 022 Albumin [Mass/Vol] 2.9 g/dL Critically low 3.4-5.0 [facility] Comment on above: Performed By: #### E RUR #### [facility] [address] [place] [address] Dr. Helio Cee Albumin/Globulin [Mass ratio] 0.8 {ratio} Normal [facility] Comment on above: Performed By: #### E RUR #### [facility] [address] [place] [address] Dr. Helio Cee ALP [Catalytic activity/Vol] 81 U/L Normal 46-116 [facility] Comment on above: Performed By: #### E RUR #### [facility] [address] [place] [address] Dr. Helio Cee ALT [Catalytic activity/Vol] 21 U/L Normal 14-59 [facility] Comment on above: Performed By: #### E RUR #### [facility] [address] [place] [address] Dr. Helio Cee Anion gap [Moles/Vol] 12.4 mmol/L Normal [facility] Comment on above: Performed By: #### E RUR #### [facility] [address] [place] [address] Dr. Helio Cee AST [Catalytic activity/Vol] 11 U/L Critically low 15- 37 [facility] Comment on above: Performed By: #### E RUR #### [facility] [address] [address] [address] Helio Cee Bilirubin [Mass/Vol] 0.4 mg/dL Normal 0.2-1.0 [facility] Comment on above: Performed By: #### E RUR #### [facility] [address] [address] [address] Helio Cee Calcium [Mass/Vol] 8.7 mg/dL Normal 8.5-10.1 [facility] Comment on above: Performed By: #### E RUR #### [facility] [address] [place] [address] Dr. Helio Cee Chloride [Moles/Vol] 108 mmol/L Critically high 98-107 [facility] Comment on above: Performed By: #### E RUR #### [facility] [address] [place] [address] Dr. Helio Cee CO2 [Moles/Vol] 24.2 mmol/L Normal 21.0-32.0 [facility] Comment on above: Performed By: #### E RUR #### [facility] [address] [place] [address] Dr. Helio Cee Creatinine [Mass/Vol] 1.03 mg/dL Critically high 0.55-1.02 [facility] Comment on above: Performed By: #### E RUR #### [facility] [address] [place] [address] Dr. Helio Cee EGFR-AF FILIPINO >60 Normal >=60 [facility] Comment on above: Performed By: #### E RUR #### [facility] [address] [place] [address] Dr. Helio Cee EGFR-NON AF FILIPINO 52 mL/min/1.73m2 Critically low >=60 [facility] Comment on above: Performed By: #### E RUR #### [facility] [address] [place] [address] Dr. Helio Cee Globulin (S) [Mass/Vol] 3.5 g/dL Normal [facility] Comment on above: Performed By: #### E RUR #### [facility] [address] [address] [address] Helio Cee Glucose [Mass/Vol] 142 mg/dL Critically high 74-106 [facility] Comment on above: Performed By: #### E RUR #### [facility] [address] [address] [address] Helio Cee Potassium [Moles/Vol] 3.6 mmol/L Normal 3.5-5.1 [facility] Comment on above: Performed By: #### E RUR #### [facility] [address] [address] [address] Helio Cee Protein [Mass/Vol] 6.4 g/dL Normal 6.4-8.2 [facility] Comment on above: Performed By: #### E RUR #### [facility] [address] [address] [address] Helio Cee Sodium [Moles/Vol] 141 mmol/L Normal 136-145 [facility] Comment on above: Performed By: #### E RUR #### [facility] [address] [address] [address] Helio Cee Urea nitrogen [Mass/Vol] 19.0 mg/dL Critically high 7.0-18 .0 [facility] Comment on above: Performed By: #### E RUR #### [facility] [address] [address] [address] Helio Cee Urea nitrogen/Creatinine [Mass ratio] 18.4 mg/mg Normal [facility] Comment on above: Performed By: #### E RUR #### [facility] [id number] Helio Cee XR CHEST 2 Von [...] EUN BARRY Date: 2021-11-20 07:56 Normal [facility] BNPon 11-19-2021 Natriuretic peptide B (Bld) [Mass/Vol] 777.0 pg/mL Normal <=900.0 [facility] Comment on above: Performed By: #### E RUR #### [facility] [address] [place] [address] Dr. Helio Cee CBC AUTO DIFFon 11-19-2021 BASO # 0.0 103/ul Normal 0.0-0.1 [facility] Comment on above: Performed By: #### V [id number] #### [facility] [address] [place] [address] Dr. Helio Cee Basophils/100 WBC (Bld) 0.2 % Normal 0.2-2.0 [facility] Comment on above: Performed By: #### V [id number] #### [facility] [address] [place] [address] Dr. Helio Cee EO # 0.1 103/ul Normal 0.0-0.7 [facility] Comment on above: Performed By: #### V [id number] #### [facility] [address] [place] [address] Dr. Helio Cee Eosinophils/100 WBC (Bld) 0.5 % Critically low 0.9-7. [address] [facility] Comment on above: Performed By: #### V [id number] #### [facility] [address] [place] [address] Dr. Helio Cee Erythrocyte distribution wid th (RBC) [Ratio] 14.6 % Normal 11.0-15.0 [facility] Comment on above: Performed By: #### V [id number] #### [facility] [address] [place] [address] Dr. Helio Cee Hematocrit (Bld) [Volume fraction] 37.4 % Normal 3 6.0-48.[address] [facility] Comment on above: Performed By: #### V [id number] #### [facility] [address] [address] [address] Helio Cee Hemoglobin (Bld) [Mass/Vol] 11.5 g/dL Critically low 12.0 -16.0 [facility] Comment on above: Performed By: #### V [id number] #### [facility] [address] [address] [address] Helio Cee IG # 0.07 10e3/ul Critically high 0.00-0.03 [facility] Comment on above: Performed By: #### V [id number] #### [facility] [address] [place] [address] Dr. Helio Cee IG % 0.5 % Normal 0.0-0.5 [facility] Comment on above: Performed By: #### V [id number] #### [facility] [address] [place] [address] Dr. Helio Cee LYMPH # 1.1 103/ul Critically low 1.2-3.8 [facility] Comment on above: Performed By: #### V [id number] #### [facility] [address] [place] [address] Dr. Helio Cee Lymphocytes/100 WBC (Bld) 6.8 % Critically low 20.5-6 0.0 [facility] Comment on above: Performed By: #### V [id number] #### [facility] [address] [address] [address] Helio Cee MANUAL DIFF REQ NO Normal [facility] Comment on above: Performed By: #### V [id number] #### [facility] [address] [address] [address] Helio Cee MCH (RBC) [Entitic mass] 30.1 pg Normal 26.7-34.0 [facility] Comment on above: Performed By: #### V [id number] #### [facility] [address] [place] [address] Dr. Helio Cee MCHC (RBC) [Mass/Vol] 30.7 g/dL Normal 29.9-35.2 [facility] Comment on above: Performed By: #### V [id number] #### [facility] [address] [place] [address] Dr. Helio Cee MCV (RBC) [Entitic vol] 97.9 fL Normal 81.0-99.0 [facility] Comment on above: Performed By: #### V [id number] #### [facility] [address] [place] [address] Dr. Helio Cee MONO # 0.8 103/ul Normal 0.3-0.8 [facility] Comment on above: Performed By: #### V [id number] #### [facility] [address] [place] [address] Dr. Helio Cee Monocytes/100 WBC (Bld) 5.3 % Normal 1.7-12.0 [facility] Comment on above: Performed By: #### V [id number] #### [facility] [address] [place] [address] Dr. Helio Cee NEUT # 13.3 103/ul Critically high 1.4-6.5 [facility] Comment on above: Performed By: #### V [id number] #### [facility] [address] [place] [address] Dr. Helio Cee Neutrophils/100 WBC (Bld) 86.7 % Critically high 43.0- 75.0 [facility] Comment on above: Performed By: #### V [id number] #### [facility] [address] [place] [address] Dr. Helio Cee Platelet mean volume (Bld) [ Entitic vol] 11.4 fL Normal 9.5-13.5 [facility] Comment on above: Performed By: #### V [id number] #### [facility] [address] [place] [address] Dr. Helio Cee PLT 215 103/ul Normal 150-450 [facility] Comment on above: Performed By: #### V [id number] #### [facility] [address] [place] [address] Dr. Helio Cee RBC 3.82 106/ul Critically low 4.20-5.40 [facility] Comment on above: Performed By: #### V [id number] #### [facility] [address] [place] [address] Dr. Helio Cee WBC 15.3 103/ul Critically high 4.0-11.0 [facility] Comment on above: Performed By: #### V [id number] #### [facility] [address] [place] [address] Dr. Helio Cee PROF 14(COMP METB)on 022 Albumin [Mass/Vol] 2.8 g/dL Critically low 3.4-5.0 [facility] Comment on above: Performed By: #### E RUR #### [facility] [address] [place] [address] Dr. Helio Cee Albumin/Globulin [Mass ratio] 0.8 {ratio} Normal [facility] Comment on above: Performed By: #### E RUR #### [facility] [address] [place] [address] Dr. Helio Cee ALP [Catalytic activity/Vol] 74 U/L Normal 46-116 [facility] Comment on above: Performed By: #### E RUR #### [facility] [address] [place] [address] Dr. Helio Cee ALT [Catalytic activity/Vol] 21 U/L Normal 14-59 [facility] Comment on above: Performed By: #### E RUR #### [facility] [address] [place] [address] Dr. Helio Cee Anion gap [Moles/Vol] 13.5 mmol/L Normal [facility] Comment on above: Performed By: #### E RUR #### [facility] [address] [place] [address] Dr. Helio Cee AST [Catalytic activity/Vol] 11 U/L Critically low 15- 37 [facility] Comment on above: Performed By: #### E RUR #### [facility] [address] [place] [address] Dr. Helio Cee Bilirubin [Mass/Vol] 0.5 mg/dL Normal 0.2-1.0 [facility] Comment on above: Performed By: #### E RUR #### [facility] [address] [place] [address] Dr. Helio Cee Calcium [Mass/Vol] 8.4 mg/dL Critically low 8.5-10.1 [facility] Comment on above: Performed By: #### E RUR #### [facility] [address] [place] [address] Dr. Helio Cee Chloride [Moles/Vol] 107 mmol/L Normal 98-107 [facility] Comment on above: Performed By: #### E RUR #### [facility] [address] [place] [address] Dr. Helio Cee CO2 [Moles/Vol] 21.0 mmol/L Normal 21.0-32.0 [facility] Comment on above: Performed By: #### E RUR #### [facility] [address] [place] [address] Dr. Helio Cee Creatinine [Mass/Vol] 1.07 mg/dL Critically high 0.55-1.02 [facility] Comment on above: Performed By: #### E RUR #### [facility] [address] [place] [address] Dr. Helio Cee EGFR-AF FILIPINO >60 Normal >=60 [facility] Comment on above: Performed By: #### E RUR #### [facility] [address] [place] [address] Dr. Helio Cee EGFR-NON AF FILIPINO 50 mL/min/1.73m2 Critically low >=60 [facility] Comment on above: Performed By: #### E RUR #### [facility] [address] [place] [address] Dr. Helio Cee Globulin (S) [Mass/Vol] 3.4 g/dL Normal [facility] Comment on above: Performed By: #### E RUR #### [facility] [address] [place] [address] Dr. Helio Cee Glucose [Mass/Vol] 109 mg/dL Critically high 74-106 [facility] Comment on above: Performed By: #### E RUR #### [facility] [address] [address] [address] Helio Cee Potassium [Moles/Vol] 3.5 mmol/L Normal 3.5-5.1 [facility] Comment on above: Performed By: #### E RUR #### [facility] [address] [address] [address] Helio Cee Protein [Mass/Vol] 6.2 g/dL Critically low 6.4-8.2 [facility] Comment on above: Performed By: #### E RUR #### [facility] [address] [address] [address] Helio Cee Sodium [Moles/Vol] 138 mmol/L Normal 136-145 [facility] Comment on above: Performed By: #### E RUR #### [facility] [address] [address] [address] Helio Cee Urea nitrogen [Mass/Vol] 25.0 mg/dL Critically high 7.0-18 .0 [facility] Comment on above: Performed By: #### E RUR #### [facility] [address] [place] [address] Dr. Helio Cee Urea nitrogen/Creatinine [Mass ratio] 23.4 mg/mg Normal [facility] Comment on above: Performed By: #### E RUR #### [facility] [address] [address] [address] Helio Cee BNPon 11-18-2021 Natriuretic peptide B (Bld) [Mass/Vol] 386.0 pg/mL Normal <=900.0 [facility] Comment on above: Performed By: #### B ARTS ADMINISTRATOR OR MANAGER, HSTROPN, BMP ####[facility] [address] [address]Dr. Helio Cee CBC AUTO DIFFon 11-18-2021 BASO # 0.0 103/ul Normal 0.0-0.1 [facility] Comment on above: Performed By: #### V [id number] #### [facility] [address] [place] [address] Dr. Helio Cee Basophils/100 WBC (Bld) 0.3 % Normal 0.2-2.0 [facility] Comment on above: Performed By: #### V [id number] #### [facility] [address] [place] [address] Dr. Helio Cee EO # 0.0 103/ul Normal 0.0-0.7 [facility] Comment on above: Performed By: #### V [id number] #### [facility] [address] [place] [address] Dr. Helio Cee Eosinophils/100 WBC (Bld) 0.1 % Critically low 0.9-7. 0 [facility] Comment on above: Performed By: #### V [id number] #### [facility] [address] [place] [address] Dr. Helio Cee Erythrocyte distribution wid th (RBC) [Ratio] 14.4 % Normal 11.0-15.0 [facility] Comment on above: Performed By: #### V [id number] #### [facility] [address] [place] [address] Dr. Helio Cee Hematocrit (Bld) [Volume fraction] 43.6 % Normal 3 6.0-48.0 [facility] Comment on above: Performed By: #### V [id number] #### [facility] [address] [place] [address] Dr. Helio Cee Hemoglobin (Bld) [Mass/Vol] 13.4 g/dL Normal 12.0-16. 0 [facility] Comment on above: Performed By: #### V [id number] #### [facility] [address] [place] [address] Dr. Helio Cee IG # 0.03 10e3/ul Normal 0.00-0.03 [facility] Comment on above: Performed By: #### V [id number] #### [facility] [address] [place] [address] Dr. Helio Cee IG % 0.3 % Normal 0.0-0.5 [facility] Comment on above: Performed By: #### V [id number] #### [facility] [address] [address] [address] Helio Cee LYMPH # 0.4 103/ul Critically low 1.2-3.8 [facility] Comment on above: Performed By: #### V [id number] #### [facility] [address] [address] [address] Helio Cee Lymphocytes/100 WBC (Bld) 4.0 % Critically low 20.5-6 0.0 [facility] Comment on above: Performed By: #### V [id number] #### [facility] [address] [address] [address] Helio Cee MANUAL DIFF REQ NO Normal [facility] Comment on above: Performed By: #### V [id number] #### [facility] [address] [place] [address] Dr. Helio eCe MCH (RBC) [Entitic mass] 29.6 pg Normal 26.7-34.0 [facility] Comment on above: Performed By: #### V [id number] #### [facility] [address] [address] [address] Helio Cee MCHC (RBC) [Mass/Vol] 30.7 g/dL Normal 29.9-35.2 [facility] Comment on above: Performed By: #### V [id number] #### [facility] [address] [address] [address] Helio Cee MCV (RBC) [Entitic vol] 96.5 fL Normal 81.0-99.0 [facility] Comment on above: Performed By: #### V [id number] #### [facility] [address] [address] [address] Helio Cee MONO # 0.6 103/ul Normal 0.3-0.8 [facility] Comment on above: Performed By: #### V [id number] #### [facility] [address] [address] [address] Helio Cee Monocytes/100 WBC (Bld) 5.4 % Normal 1.7-12.0 [facility] Comment on above: Performed By: #### V [id number] #### [facility] [address] [address] [address] Helio Cee NEUT # 9.7 103/ul Critically high 1.4-6.5 [facility] Comment on above: Performed By: #### V [id number] #### [facility] [address] [place] [address] Dr. Helio Cee Neutrophils/100 WBC (Bld) 89.9 % Critically high 43.0- 75.0 [facility] Comment on above: Performed By: #### V [id number] #### [facility] [address] [place] [address] Dr. Helio Cee Platelet mean volume (Bld) [ Entitic vol] 10.9 fL Normal 9.5-13.5 [facility] Comment on above: Performed By: #### V [id number] #### [facility] [address] [place] [address] Dr. Helio Cee PLT 265 103/ul Normal 150-450 [facility] Comment on above: Performed By: #### V [id number] #### [facility] [address] [place] [address] Dr. Helio Cee RBC 4.52 106/ul Normal 4.20-5.40 [facility] Comment on above: Performed By: #### V [id number] #### [facility] [address] [place] [address] Dr. Helio Cee WBC 10.7 103/ul Normal 4.0-11.0 [facility] Comment on above: Performed By: #### V [id number] #### [facility] [address] [place] [address] Dr. Helio Cee CULTURE BLOODon 11-18-2021 Microscopic examination of blood, culture Culture Observations: NO GROWTH AT 5 DAYS. Normal The [facility] al Comment on above: Performed By: #### B [id number] #### [facility] [address] [place] [address] Dr. Helio Cee Microscopic examination of blood, culture Culture Observations: NO GROWTH AT 5 DAYS. Normal [facility] Comment on above: Performed By: #### B [id number] #### [facility] [address] [place] [address] Dr. Helio Cee Covid-19 PCR ([facility])on SARS-CoV-2 (COVID-19) RNA KIMMY+probe Ql (Unsp spec) Not detected Normal NOT DETECTED The [facility] Comment on above: Result Comment: When [...] for this test is supported by the [place] [employer]'s declaration that [...] used). Performed By: #### E RUR #### [facility] [address] [place] [address] Dr. Helio Cee ER URINE PROFILEon 2 Bilirubin Ql (U) Negative Normal NEGATIVE The [facility] Comment on above: Performed By: #### E RUR #### [facility] [address] [place] [address] Dr. Helio Cee Clarity (U) CLEAR Normal CLEAR [facility] Comment on above: Performed By: #### E RUR #### [facility] [address] [place] [address] Dr. Helio Cee Color (U) LT. YELLOW Normal YELLOW [facility] Comment on above: Performed By: #### E RUR #### [facility] [address] [place] [address] DrCarlos NAVARRETE A micrscopic examina tion will be performed if indicated. Normal The [facility] l Comment on above: Performed By: #### E RUR #### [facility] [address] [place] [address] Dr. Helio Cee Glucose Ql (U) Negative Normal NEGATIVE The [facility] [place] Comment on above: Performed By: #### E RUR #### [facility] [address] [place] [address] Dr. Helio Cee Hemoglobin Ql (U) Negative Normal NEGATIVE [facility] Comment on above: Performed By: #### E RUR #### [facility] [address] [place] [address] Dr. Helio Cee Ketones Ql (U) Negative Normal NEGATIVE The [facility] [place] Comment on above: Performed By: #### E RUR #### [facility] [address] [place] [address] Dr. Helio Cee LEUKOCYTES Negative Normal NEGATIVE The [facility] Comment on above: Performed By: #### E RUR #### [facility] [address] [place] [address] Dr. Helio Cee Nitrite Ql (U) Negative Normal NEGATIVE The [facility] [place] Comment on above: Performed By: #### E RUR #### [facility] [address] [place] [address] Dr. Helio Cee pH (U) 5.5 [pH] Normal 5-9 The [facility] Comment on above: Performed By: #### E RUR #### [facility] [address] [place] [address] Dr. Helio Cee SPEC GRAVITY 1.015 Normal 1.005-<=1.025 The [facility] Comment on above: Performed By: #### E RUR #### [facility] [address] [place] [address] Dr. Helio Cee UA PROTEIN Negative Normal NEGATIVE/ TRACE [facility] Comment on above: Performed By: #### E RUR #### [facility] [address] [place] [address] Dr. Helio Cee UR MICRO IND NOT INDICATED Normal [facility] Comment on above: Performed By: #### E RUR #### [facility] [address] [address] [address] Helio Cee Urobilinogen Qn (U) 0.2 {Nevaeh'U}/dL Normal 0.2 - 1. 0 [facility] Comment on above: Performed By: #### E RUR #### [facility] [address] [address] [address] Helio Cee PROF CHEM 8 (BAS METB)on Anion gap [Moles/Vol] 13.6 mmol/L Normal [facility] Comment on above: Performed By: #### B ARTS ADMINISTRATOR OR MANAGER, HSTROPN, BMP ####[facility] [address] [address]Dr. Helio Cee Calcium [Mass/Vol] 9.1 mg/dL Normal 8.5-10.1 [facility] Comment on above: Performed By: #### B ARTS ADMINISTRATOR OR MANAGER, HSTROPN, BMP ####[facility] [address] [address]Dr. Helio Cee Chloride [Moles/Vol] 110 mmol/L Critically high 98-107 [facility] Comment on above: Performed By: #### B ARTS ADMINISTRATOR OR MANAGER, HSTROPN, BMP ####[facility] [address] [address]Dr. Helio Cee CO2 [Moles/Vol] 22.9 mmol/L Normal 21.0-32.0 [facility] Comment on above: Performed By: #### B ARTS ADMINISTRATOR OR MANAGER, HSTROPN, BMP ####[facility] [address] [address]Dr. Helio Cee Creatinine [Mass/Vol] 1.47 mg/dL Critically high 0.55-1.02 [facility] Comment on above: Performed By: #### B ARTS ADMINISTRATOR OR MANAGER, HSTROPN, BMP ####[facility] [address] [address]Dr. Helio Cee EGFR-AF FILIPINO 42 mL/min/1.73m2 Critically low >=60 [facility] Comment on above: Performed By: #### B ARTS ADMINISTRATOR OR MANAGER, HSTROPN, BMP ####[facility] [address] [address]Dr. Helio Cee EGFR-NON AF FILIPINO 35 mL/min/1.73m2 Critically low >=60 [facility] Comment on above: Performed By: #### B ARTS ADMINISTRATOR OR MANAGER, HSTROPN, BMP ####[facility] [address] [address]Dr. Helio Cee Glucose [Mass/Vol] 120 mg/dL Critically high 74-106 [facility] Comment on above: Performed By: #### B ARTS ADMINISTRATOR OR MANAGER, HSTROPN, BMP ####[facility] [address] [place], [place] [address]Dr. Helio Cee Potassium [Moles/Vol] 3.5 mmol/L Normal 3.5-5.1 [facility] Comment on above: Performed By: #### B ARTS ADMINISTRATOR OR MANAGER, HSTROPN, BMP ####[facility] [address] [place], [place] [address]Dr. Helio Cee Sodium [Moles/Vol] 143 mmol/L Normal 136-145 The [facility] Comment on above: Performed By: #### B ARTS ADMINISTRATOR OR MANAGER, HSTROPN, BMP ####[facility] [address] [place], [place] [address]Dr. Helio Cee Urea nitrogen [Mass/Vol] 29.0 mg/dL Critically high 7.0-18 .0 [facility] Comment on above: Performed By: #### B ARTS ADMINISTRATOR OR MANAGER, HSTROPN, BMP ####[facility] [address] [address]Dr. Claudettemagan Cee Urea nitrogen/Creatinine [Mass ratio] 19.7 mg/mg Normal [facility] Comment on above: Performed By: #### B ARTS ADMINISTRATOR OR MANAGER, HSTROPN, BMP ####[facility] [address] [address]Dr. Helio Cee TROPONIN, HIGH SENSITIVITYon 11-18-2021 HSTROP 8.2 pg/mL Normal 4.0-51.3 [facility] Comment on above: Result Comment: CUT- OFF POINTS HAVE BEEN ESTABLISHED BASED ON THE FOURTH UNIVERSAL DEFINITIONS OF MYOCARDIAL INFARCTION. THE UPPER REFERENCE LIMIT (URL) OF TROPONIN, DEFINED THE 99TH PERCENTILE OF cTnI DISTRIBUTION IN A REFERENCE POPULATION, HAS BEEN CONFIRMED THE DECISION THRESHOLD FOR NC DIAGNOSIS. Performed By: #### B ARTS ADMINISTRATOR OR MANAGER, HSTROPN, BMP ####[facility] [address] [place], [place] [address]GdDr. Helio Cee XR CHEST 1 Von 11-18-2021 [...] by: EHSAN MILLER Date: 2021-11-18 10:38 Normal [facility] BNPon 10-25-2021 Natriuretic peptide B (Bld) [Mass/Vol] 396.0 pg/mL Normal <=900.0 [facility] pital Comment on above: Performed By: #### V [id number] #### [facility] [address] [address] [address] Helio Cee CBC AUTO DIFFon 10-25-2021 BASO # 0.1 103/ul Normal 0.0-0.1 The [facility] Comment on above: Performed By: #### E RUR #### [facility] [address] [place], [place] [address] Dr. Helio Cee Basophils/100 WBC (Bld) 1.0 % Normal 0.2-2.0 [facility] Comment on above: Performed By: #### E RUR #### [facility] [address] [place], [place] [address] Dr. Helio Cee EO # 0.2 103/ul Normal 0.0-0.7 [facility] Comment on above: Performed By: #### E RUR #### [facility] [address] [place] [address] Dr. Helio Cee Eosinophils/100 WBC (Bld) 2.7 % Normal 0.9-7.[address] [facility] Comment on above: Performed By: #### E RUR #### [facility] [address] [place] [address] Dr. Helio Cee Erythrocyte distribution wid th (RBC) [Ratio] 14.6 % Normal 11.0-15.0 [facility] Comment on above: Performed By: #### E RUR #### [facility] [address] [place] [address] Dr. Helio Cee Hematocrit (Bld) [Volume fraction] 44.8 % Normal 3 6.0-48.[address] [facility] Comment on above: Performed By: #### E RUR #### [facility] [address] [place] [address] Dr. Helio Cee Hemoglobin (Bld) [Mass/Vol] 13.8 g/dL Normal 12.0-16. 0 [facility] Comment on above: Performed By: #### E RUR #### [facility] [address] [place] [address] Dr. Helio Cee IG # 0.03 10e3/ul Normal 0.00-0.03 The [facility] [facility] Comment on above: Performed By: #### E RUR #### [facility] [address] [place] [address] Dr. Helio Cee IG % 0.3 % Normal 0.0-0.5 [facility] ostal Comment on above: Performed By: #### E RUR #### [facility] [address] [place] [address] Dr. Helio Cee LYMPH # 1.6 103/ul Normal 1.2-3.8 [facility] ostal Comment on above: Performed By: #### E RUR #### [facility] [address] [place] [address] Dr. Helio Cee Lymphocytes/100 WBC (Bld) 18.5 % Critically low 20.5-6 0.0 [facility] Comment on above: Performed By: #### E RUR #### [facility] [address] [place] [address] Dr. Helio Cee MANUAL DIFF REQ NO Normal [facility] Comment on above: Performed By: #### E RUR #### [facility] [address] [place] [address] Dr. Helio Cee MCH (RBC) [Entitic mass] 29.9 pg Normal 26.7-34.0 [facility] Comment on above: Performed By: #### E RUR #### [facility] [address] [place] [address] Dr. Helio Cee MCHC (RBC) [Mass/Vol] 30.8 g/dL Normal 29.9-35.2 [facility] Comment on above: Performed By: #### E RUR #### [facility] [address] [place] [address] Dr. Helio Cee MCV (RBC) [Entitic vol] 97.2 fL Normal 81.0-99.0 [facility] Comment on above: Performed By: #### E RUR #### [facility] [address] [place] [address] Dr. Hleio Cee MONO # 0.6 103/ul Normal 0.3-0.8 [facility] Comment on above: Performed By: #### E RUR #### [facility] [address] [place] [address] Dr. Helio Cee Monocytes/100 WBC (Bld) 7.0 % Normal 1.7-12.0 [facility] Comment on above: Performed By: #### E RUR #### [facility] [address] [place] [address] Dr. Helio Cee NEUT # 6.1 103/ul Normal 1.4-6.5 [facility] Comment on above: Performed By: #### E RUR #### [facility] [address] [place] [address] Dr. Helio Cee Neutrophils/100 WBC (Bld) 70.5 % Normal 43.0-75.0 [facility] Comment on above: Performed By: #### E RUR #### [facility] [address] [address] [address] Helio Cee Platelet mean volume (Bld) [ Entitic vol] 11.0 fL Normal 9.5-13.5 [facility] pital Comment on above: Performed By: #### E RUR #### [facility] [address] [address] [address] Helio Cee PLT 292 103/ul Normal 150-450 [facility] Comment on above: Performed By: #### E RUR #### [facility] [address] [address] [address] Helio Cee RBC 4.61 106/ul Normal 4.20-5.[address] [facility] Comment on above: Performed By: #### E RUR #### [facility] [address] [address] [address] Helio Cee WBC 8.6 103/ul Normal 4.0-11.0 [facility] Comment on above: Performed By: #### E RUR #### [facility] [address] [place] [address] Dr. Helio Cee ECHOCARDIO M/2D COMPLETEon 0 10-25-2021 ECHOCARDIO M/2D COMPLETE Patient: AARON JAY Exam Date: 10/25/2021 : 1945 Gender:F Ordering : DR JEREMIAH REED M.D. Admission #: [id number] Family : Order #: [id number] CLICK HERE TO VIEW EXAM ECHOCARDIOGRAM REPORT [...] Area(A4C): 20.40 cm2 Left Atrium Systolic Volume(A2C): 57330 mm3 Left Atrium Systolic Volume(A4C): 51199 mm3 Mitral Valve MV E to A Ratio: 0.80 Deceleration [place]: 4670 mm/s2 Mitral Valve A-Wave Peak Velocity: [...] Cheema M.D. on 10/25/2021 at 19:31 Normal [facility] MAMM SCREEN 3D EBONI CADon 10-25-2021 MG MAMM SCREEN 3D EBONI CAD Patient: AARON JJ Exam Date: 10/25/2021 : 1945 Gender:F Ordering : DR JEREMIAH REED M.D. Admission #: [id number] Family : Order #: [id number] CLICK HERE TO VIEW EXAM RADIOLOGY REPORT [...] breast cancer at age 72. LOCATION: [facility] BREAST COMPOSITION: Heterogeneously dense,which may obscure [...] Miller M.D. on 10/25/2021 at 15:33 Normal [facility] sara PROF 14(COMP METB)on 022 Albumin [Mass/Vol] 3.8 g/dL Normal 3.4-5.0 [facility] Comment on above: Performed By: #### V [id number] #### [facility] [address] [place] [address] Dr. Helio Cee Albumin/Globulin [Mass ratio] 1.1 {ratio} Normal [facility] Comment on above: Performed By: #### V [id number] #### [facility] [address] [address] [address] Helio Cee ALP [Catalytic activity/Vol] 97 U/L Normal 46-116 [facility] Comment on above: Performed By: #### V [id number] #### [facility] [address] [address] [address] Helio Cee ALT [Catalytic activity/Vol] 31 U/L Normal 14-59 [facility] Comment on above: Performed By: #### V [id number] #### [facility] [address] [place] [address] Dr. Helio Cee Anion gap [Moles/Vol] 11.0 mmol/L Normal [facility] Comment on above: Performed By: #### V [id number] #### [facility] [address] [address] [address] Helio Cee AST [Catalytic activity/Vol] 13 U/L Critically low 15- 37 [facility] Comment on above: Performed By: #### V [id number] #### [facility] [address] [place] [address] Dr. Helio Cee Bilirubin [Mass/Vol] 0.4 mg/dL Normal 0.2-1.0 [facility] Comment on above: Performed By: #### V [id number] #### [facility] [address] [address] [address] Helio Cee Calcium [Mass/Vol] 9.3 mg/dL Normal 8.5-10.1 [facility] Comment on above: Performed By: #### V [id number] #### [facility] [address] [address] [address] Helio Cee Chloride [Moles/Vol] 108 mmol/L Critically high 98-107 [facility] Comment on above: Performed By: #### V [id number] #### [facility] [address] [address] [address] Helio Cee CO2 [Moles/Vol] 28.4 mmol/L Normal 21.0-32.0 [facility] Comment on above: Performed By: #### V [id number] #### [facility] [address] [address] [address] Helio Cee Creatinine [Mass/Vol] 1.09 mg/dL Critically high 0.55-1.02 [facility] Comment on above: Performed By: #### V [id number] #### [facility] [address] [address] [address] Helio Cee EGFR-AF FILIPINO 59 mL/min/1.73m2 Critically low >=60 [facility] Comment on above: Performed By: #### V [id number] #### [facility] [address] [address] [address] Helio Cee EGFR-NON AF FILIPINO 49 mL/min/1.73m2 Critically low >=60 [facility] Comment on above: Performed By: #### V [id number] #### [facility] [address] [address] [address] Helio Cee Globulin (S) [Mass/Vol] 3.4 g/dL Normal [facility] Comment on above: Performed By: #### V [id number] #### [facility] [address] [address] [address] Helio Cee Glucose [Mass/Vol] 100 mg/dL Normal 74-106 [facility] Comment on above: Performed By: #### V [id number] #### [facility] [address] [address] [address] Helio Cee Potassium [Moles/Vol] 4.4 mmol/L Normal 3.5-5.1 [facility] Comment on above: Performed By: #### V [id number] #### [facility] [address] [address] [address] Helio Cee Protein [Mass/Vol] 7.2 g/dL Normal 6.4-8.2 [facility] Comment on above: Performed By: #### V [id number] #### [facility] [address] [address] [address] Helio Cee Sodium [Moles/Vol] 143 mmol/L Normal 136-145 [facility] Comment on above: Performed By: #### V [id number] #### [facility] [address] [address] [address] Helio Cee Urea nitrogen [Mass/Vol] 24.0 mg/dL Critically high 7.0-18 .0 [facility] Comment on above: Performed By: #### V [id number] #### [facility] [address] [address] [address] Helio Cee Urea nitrogen/Creatinine [Mass ratio] 22.0 mg/mg Normal [facility] Comment on above: Performed By: #### V [id number] #### [facility] [address] [place] [address] Dr. Helio Cee TSHon 10-25-2021 TSH 0.635 uIU/mL Normal 0.358-3.740 [facility] Comment on above: Performed By: #### V [id number] #### [facility] [address] [place] [address] Dr. Helio Cee Vital Signs Date Time Vital Sign Value Performing Clinician Facility 04-13-2023 14:40-0500 Hourly Rounding [facility] 04-13-2023 14:40-0500 Promise to Return [facility] 04-13-2023 13:00-0500 Diastolic blood pressure 77 mm[Hg] [facility] 04-13-2023 13:00-0500 Heart rate 78 /min [facility] 04-13-2023 13:00-0500 Hourly Rounding [facility] 04-13-2023 13:00-0500 Promise to Return [facility] 04-13-2023 13:00-0500 Respiratory rate 16 /min [facility] 04-13-2023 13:00-0500 Systolic blood pressure 127 mm[Hg] [facility] 04-13-2023 12:13-0500 Heart rate 80 /min [facility] 04-13-2023 12:13-0500 SaO2% (BldA) [Mass fraction] 95 % [facility] 04-13-2023 12:12-0500 Body temperature 97.16 [degF] [facility] 04-13-2023 12:11-0500 Diastolic blood pressure 78 mm[Hg] hari [facility] 04-13-2023 12:11-0500 Mean blood pressure 94 mm[Hg] [facility] 04-13-2023 12:11-0500 Systolic blood pressure 125 mm[Hg] [facility] 04-13-2023 12:00-0500 Hour[facility] Rounding [facility] 04-13-2023 12:00-0500 Promise to Return [facility] 04-13-2023 09:10-0500 Diastolic blood pressure 70 mm[Hg] [facility] 04-13-2023 09:10-0500 Heart rate 87 /min [facility] 04-13-2023 09:10-0500 Mean blood pressure 90 mm[Hg] hari [facility] 04-13-2023 09:10-0500 Respiratory rate 17 /min [facility] 04-13-2023 09:10-0500 Systolic blood pressure 130 mm[Hg] [facility] 04-13-2023 08:00-0500 SaO2% (BldA) [Mass fraction] 93 % [facility] 04-13-2023 07:29-0500 Heart rate 89 /min [facility] 04-13-2023 07:29-0500 SaO2% (BldA) [Mass fraction] 94 % [facility] 04-13-2023 07:29-0500 Mean blood pressure 88 mm[Hg] [facility] 04-13-2023 07:29-0500 Body temperature 97.88 [degF] kitty[facility] 04-13-2023 05:00-0500 Blood Pressure Location [facility] 04-13-2023 05:00-0500 Heart rate 95 /min [facility] 04-13-2023 05:00-0500 Mean blood pressure 100 mm[Hg] [facility] 04-13-2023 00:18-0500 Blood Pressure Location [facility] 04-13-2023 00:18-0500 Body temperature 97.52 [degF] [facility] 04-12-2023 20:33-0500 Body temperature 97.34 [degF] [facility] 04-12-2023 20:33-0500 Mean blood pressure 88 mm[Hg] [facility] 04-12-2023 18:03-0500 Blood Pressure Location [facility] 04-12-2023 16:49-0500 Respiratory rate 22 /min [facility] 04-12-2023 15:00-0500 Respiratory rate 20 /min [facility] 04-12-2023 12:24-0500 gluc 88 mg/dL [facility] 04-12-2023 12:24-0500 gluc [facility] 04-12-2023 12:19-0500 Body temperature 97.7 [degF] [facility] 03-29-2023 15:30-0500 Body height 161.29 cm Jeremiah Reed Other [employer] Other 03-29-2023 15:30-0500 Body mass index (BMI) [Ratio] 37.14 kg/m2 Jeremiah Reed Other [employer] Other 03-29-2023 15:30-0500 Body weight 96.62 kg Jeremiah Reed Other [employer] Other 03-29-2023 15:30-0500 Diastolic blood pressure 85 mm[Hg] Jeremiah Reed Other [employer] Other 03-29-2023 15:30-0500 Systolic blood pressure 144 mm[Hg] Jeremiah Reed Other [employer] Other 06-21-2022 14:42-0500 Blood Pressure Location BRENDAPRATIMA SOLIMANRY [facility] Encounters Encounter Date Encounter Type Care Provider Facility Start: 04-17-2023 End: 04-17-2023 ambulatory Jeremiah Reed Other [employer] Other Start: 04-17-2023 Telephone encounter Jeremiah Reed [facility] Start: 04-13-2023 End: 04-13-2023 ambulatory Ray Fofana Other [employer] Other Start: 04-13-2023 Telephone encounter Ray Fofana [facility] Start: 04-12-2023 End: 04-13-2023 ambulatory Ehsan Blair Facility:[facility] Start: 04-12-2023 End: 04-13-2023 Observation Efrain Kurtz [facility] Start: 04-09-2023 End: 04-10-2023 ambulatory [facility] Start: 03-30-2023 End: 03-30-2023 ambulatory Jeremiah Reed Other [employer] Other Start: 03-30-2023 Telephone encounter Jeremiah Derek [facility] Start: 03-29-2023 End: 03-29-2023 ambulatory Jeremiah Reed Other [employer] Other Start: 03-29-2023 Transitional care manage srvc 14 day discharge Jeremiah Reed [facility] Start: 03-05-2023 End: 03-06-2023 ambulatory Drake Delatorre MD Facility:[facility] Start: 02-05-2023 End: 02-06-2023 ambulatory [facility] Start: 01-08-2023 End: 01-09-2023 ambulatory Drake [facility]re MD [facility] Start: 12-25-2022 End: 12-26-2022 ambulatory Drake Delatorre MD [facility] Start: 09-01-2022 End: 09-02-[address] JEREMIAH REED Facility:[facility] Start: 08-29-2022 End: 08-30-2022 ambulatory BARBARA WAGNERMIPATHY . Facility:[facility] Start: 08-21-2022 End: 08-22-[address] EHSAN MILLER Facility:[facility] Start: 08-10-2022 End: 08-11-2022 ambulatory BRENT MALDONADO Facility:[facility] Start: 06-21-2022 End: 06-22-2022 ambulatory BRENDA MARIN [facility] Start: 06-21-2022 End: 06-21-2022 Patient encounter procedure BRENDA MARIN [facility] Start: 06-12-2022 End: 06-13-2022 [...] procedure Radha L Clinker Work Phone: [facility] Start: 08-21-2018 End: 08-21-2018 Patient encounter procedure Radha L Clinker Work Phone: [facility] Start: 06-28-2018 End: 06-28-2018 Patient encounter procedure Radha L Clinker [facility] Phone[facility] Procedures Date Procedure Procedure Detail Performing Clinician Start: 06-16-2016 Cystourethroscopy wi th dilation of urethral stricture BRENDA MARIN Appendectomy BRENDA MARIN Biopsy of breast BRENDA ACOSTA DUANENathan Hysterectomy BRENDA MARIN Plan of Treatment Date Care Activity Detail Author Start: 06-05-2023 ambulatory Ambulatory [facility] Start: 10-26-2022 ambulatory Ambulatory Facility: 1 Start: 01-12-2019 Influenza vaccination INFLUENZ A VACCINE (Season Ended) [facility] Start: 01-12-2018 Influenza vaccination INFLUENZA VACC INE (#1) [facility] Start: 02-10-2012 Pneumococcal vaccination PNEUM OCOCCAL VACCINE SERIES (1 of 2 - PCV13) [facility] Start: 1997 Protein mass conc COLON CANCER SCREENING DISCUSSION [facility] Start: 1997 Zoster vaccine hzv l derrell for subcutaneous use ZOSTER (SHINGLES) VACCINE (1 of 2) [facility] Start: 1987 Fasting lipid profile LIPID SCREENIN G [facility] Start: 1987 Protein mass conc MAMMOGRAM SC REENING DISCUSSION [facility] Start: 02-10-1968 Screening for malign ant neoplasm of cervix PAP SMEAR DISCUSSION [facility] Start: 1966 Third diphtheria, tetanus and acellular pertussis (DTaP) vaccination TDAP (ADULT) [facility] Start: 1965 Tetanus vaccination TETANUS [facility] Start: 1945 Hepatitis C antibody , confirmatory test HEPATITIS C VIRUS SCREENING [facility] Start: 1945 Screening for osteoporosis DEXA SCAN DISCUSSION [facility] Immunizations Immunization Date Immunization Notes Care Provider Fa aver[facility] 03-31-2021 SARS-CoV-2 (COVID-19 ) mRNA BNT-162b2 vax BRENDA MARIN [facility] 07-21-2020 SARS-CoV-2 (COVID-19 ) Ad26 vaccine, recombinant BRENDA MARIN [facility] 04-11-2020 influenza virus vaccine, unspecified formulation BRENDA MIAH [facility] 02-02-2011 influenza virus vaccine, unspecified formulation BRENDA MARIN [facility] Payers Date Payer Category Payer Medicare 2022 Unknown 1959 Medicare [id number] 1957 Unknown [id number] 1945 Unknown [id number] 2.16.84 0.1.320510.3.579.2.593 1945 Unknown [id number] 2.16.84 0.1.273546.3.579.2.593 1945 Unknown [id number] 2.16.84 0.1.321975.3.579.2.593 1945 Unknown [id number] 2.16.84 0.1.351214.3.579.2.593 1945 Unknown [id number] 2.16.84 0.1.632991.3.579.2.593 1945 Unknown [id number] 2.16.84 0.1.439332.3.579.2.593 1945 Unknown [id number] 2.16.84 0.1.553466.3.579.2.593 1945 Unknown [id number] 2.16.84 0.1.788112.3.579.2.593 1945 Unknown [id number] 2.16.84 0.1.050783.3.579.2.593 1945 Unknown [id number] 2.16.84 0.1.410060.3.579.2.593 1945 Unknown [id number] 2.16.84 0.1.560412.3.579.2.593 1945 Unknown [id number] 2.16.84 0.1.793575.3.579.2.593 1945 Unknown [id number] 2.16.84 0.1.719749.3.579.2.593 1945 Unknown [id number] 2.16.84 0.1.593926.3.579.2.593 1945 Unknown [id number] 2.16.84 0.1.054029.3.579.2.593 1945 Unknown [id number] 2.16.84 0.1.731185.3.579.2.593 1945 Unknown [id number] 2.16.84 0.1.946713.3.579.2.593 1945 Unknown [id number] 2.16.84 0.1.961896.3.579.2.593 1947 Unknown [id number] 2.16.84 0.1.324491.3.579.2.593 1947 Unknown [id number] 2.16.84 0.1.633254.3.579.2.593 1945 Unknown [id number] 2.16.84 0.1.916539.3.579.2.593 1945 Unknown [id number] 2.16. 840.1.043156.3.579.2.196 1945 Unknown [id number] 2.16. 840.1.556337.3.579.2.196 1945 Unknown [id number] 2.16. 840.1.141347.3.579.2.196 1945 Unknown [id number] 2.16. 840.1.877790.3.579.2.196 1945 Unknown [id number] 2.16. 840.1.830767.3.579.2.196 1945 Unknown [id number] 2.16.8 40.1.069535.3.579.2.727 1945 Unknown [id number] 2.16.8 40.1.458252.3.579.2.727 1945 Unknown [id number] 2.16.8 40.1.912720.3.579.2.727 Social History Date Type Detail Facility Tobacco smoking stat us COIS Unknown if ever smoked [employer] Sex Assigned At Not on file [employer] Start: 02-03-2021 End: 04-12-2023 Tobacco smoking status Ex-smoker (finding) [facility] Sex Assigned At Female [facility] Functional Status Date Assessment Result Facility 04-12-2023 Functional Status N/A [facility] 04-12-2023 Functional Status [facility] 06-21-2022 Functional Status N/A [facility] Clinical Notes 01-12-2013 to 04-13-2023 Note Date & Type Note Facility 04-13-2023 Note Chief Complaint pt arrives via [facility] after being found outside by a neighbor without a shirt on. pt is a/o to self and place, not time. FSBS upon arrival 88. Pt was recently treated for UTI @[facility] pt. denies fall, was found sitting down. History of Present Illness 78-year-old female with PMH reformed smoker, HTN, anxiety, depression, peripheral neuropathy, GERD, OAB, obesity. -Patient presented to the ED secondary to confusion. -Per ED physician patient was recently in [facility] and treated for a UTI on [...] Lymph Auto: 9.7 % Low (04/12/23 12:53:00) Graham Auto: 7.8 % (04/12/23 12:53:00) Eos Auto: 0.1 % (04/12/23 12:53:00) Basophil Auto: 0.4 % (04/12/23 12:53:00) Neutro Absolute: 12.4 E9/L High (04/12/23 12:53:00) Lymph Absolute: 1.5 E9/L (04/12/23 12:53:00) Graham Absolute: 1.2 E9/L High (04/12/23 12:53:00) Eos [...] 88 mg/dL (04/12/23 12:23:00) POC Device SN: [id number] (04/12/23 12:23:00) POC User ID: (more content not included)... [facility] Comment on above: Result Comment: Elec [...] be reviewed and discussed with PCP or interventional physician MD once the hospital paint booth operator is able to reach him/her. I [...] made to ensure accuracy, however, inadvertently computerized curriculum writer mistakes may be present. Significant Findings CT [...] with routine reconst (more content not included)... [facility] Comment on above: Result Comment: Elec [...] cap(s), Oral, Daily With When Contact Information [facility] Additional Instructions: Call for followup appointment for anxiety/depression care. Gerald Nolasco Within 1 to [address], [place] [address] Business (1) Additional Instructions: JEREMIAH REED Within 2 to 4 days [facility] [place] [address]- Business (1) Additional Instructions: Confusion Extracted from: [...] deep vein thrombosis (DVT) prophylaxis (Z79.899: Other skilled nursing (current) drug therapy) Depression, unspecified (F32.A: Depression, [...] deep vein thrombosis (DVT) prophylaxis (Z79.899: Other skilled nursing (current) drug therapy) Depression, unspecified (F32.A: Depression, [...] Cr - unknown - awaiting records from [facility] -Renal US & PVR - if Cr [...] deep vein thrombosis (DVT) prophylaxis (Z79.899: Other terminal manager (current) drug therapy) -Heparin sq with early [...] made to ensure accuracy, however, inadvertently computerized curriculum writer mistakes may be present. Future Appointments Appointment Date:06/05/2023 01:00:00 PM Scheduled Provider:BRENDA MARIN PA-C Location:[facility] Appointment Type:URO Office Visit [facility]12-01-2023 NoteChief Complaint AMS Reason for Consultation [...] deep vein thrombosis (DVT) prophylaxis (Z79.899: Other terminal manager (current) drug therapy) Depression, unspecified (F32.A: Depression, [...] 2 tab(s), Oral, q6hr, PRN Afrin 0.05% [place], 2 s (more content not included)...[facility] Comment on above:Result Comment: Electronically Signed By: [...] friend for help if needed. Medicines Take qtpp-orn-vshilns and prescription medicines only as told by [...] provider. Document Revised: 08/24/2020 Document Reviewed: 08/24/2020 [employer] Patient Education 2022 Campus Diaries. Follow Up Care 04/12/2023 12:15:50 With:Ehsan Blair MD, [facility] Address: [address] [address]- When:1 to 2 weeks Comments:This office is closed on Fridays. Please call the office on Sunday April 16, 2023 for a follow upappiontment. Thank you. With:JEREMIAH REED Address: [address] [place] [address]- [facility] (1) When:2 to 4 days Comments:Call for followup appointment With:[facility] Address:Unknown When: Unknown Comments:Call for followup appointment for anxiety/depression care. [facility]12-01-2023 NotePT Evaluation done this date. Pt. with on AM-PAC this date. Recommend she use FWW for gait aswith cane she reaches for objects to hang onto with other hand. Will likely benefit from home health PT.[facility]11-17-2023 Evaluation note* Encounter Date Diagnosis Assessment Notes Treatment Notes Treatment Clinical Notes Mar, Colon cancer screening (ICD-10 - Z12.11) [employer] Other 11-16-2023 Evaluation note* Encounter Date Diagnosis Assessment Notes Treatment Notes Treatment Clinical Notes Mar, Generalized weakness (ICD-10 - R53.1) Followup as scheduled w ortho and PT Mar, COPD, moderate (ICD-10 - J44.9) continue present medication reviewed ER report from observation status [employer] Other 03-30-2023 NoteCONSULTATION CONSULTATION DATE: 08/10/2022 TO: [...] weeks' time or sooner if needed. [id number] NoteCONSULTATION PROCEDURE DATE: 08/10/2022 PROCEDURE: Right suprascapular [...] reduction in her pain symptoms post procedurally.[facility] [id number] Hospital Discharge instructions Patient Education 06/21/2022 14:35:24 [...] fried and sweet foods. General instructions Take itbx-usg-kjjzymn and prescription medicines only as told by [...] 02/24/2010 Document Revised: 08/21/2019 Document Reviewed: 05/16/2018 [employer] Patient Education 2020 Campus Diaries. Follow Up Care 05/19/2021 14:10:29 With:BRENDA MARIN PA-C, URL Address: [address] [place] [address]. [place] [address] When: Unknown [facility] 12-29-2022 NoteCONSULTATION CONSULTATION DATE: [...] the diclofenac. 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 [...] in three months' time unless otherwise indicated.[facility] [id number] NoteCONSULTATION CONSULTATION DATE: 02/23/2022 This is a [...] in three months' time unless otherwise indicated.[facility] [id number] NoteCONSULTATION CONSULTATION DATE: 01/08/2022 HISTORY OF PRESENT [...] followed up in the office post procedure.[facility] [id number] Note CONSULTATION CONSULTATION DATE: 12/07/2021 HISTORY OF [...] and patient would like to proceed. [facility] [id number] History general Narrative - Reported* Type Description Date Medical History Chronic back pain Medical History HTN Medical History anxiety Medical History DJD Medical History osteoporosis Surgical History Lumbar laminectomy and fusion Surgical History Hysterectomy (spared L ovary) Surgical History Landaverde's neuroma Hospitalization History For surgery as above Hospitalization History [facility] 03/2023 [place] Other Evaluation + Plan note Future Appointments Appointment Date:06/26/2023 02:30:00 PM Scheduled Provider:BRENDA MARIN PA-C Location:[facility] Appointment Type:URO Office Visit [facility] evaluation noteNo InformationNort [facility] Other Hospital course Narrative No data available for this section [facility] progress note No data available for this section [facility] Summary Purpose Family History [...] Personnel Name: JEREMIAH REED MD Address: Address: [address] [place] [address] Personnel Name: JEREMIAH REED MD Address: Address: [address] [place] [address] INFORMATION SOURCE (unrecogn ized section and content) DATE CREATED AUTHOR 09/08/2022 [facility] DATE CREATED AUTHOR AUTHOR'S ORGANIZ ATION 04/13/2023 [facility] DATE CREATED AUTHOR AUTHOR'S ORGANIZ ATION 04/21/2023 [facility] FOR RECORDS PERTAINING TO PATIENTS WHO ARE [...] BE BASED ON THE PRIMARY CLINICAL RECORDS. [facility]. provides no warranty or guarantee of the accuracy or completeness of information in this document.
== END 2023-03-22 16:55 | disposition home or self-care (01) ==
LOC: ER 12:53 → MS 13:12
PROVIDERS: Admitting Provider Internal Medicine; Emergency Provider Emergency Medicine; PCP Family Medicine; Visit Provider Nurse Practitioner
DX: N17.9 Acute kidney failure, unspecified (principal); E86.0 Dehydration; R53.1 Weakness; N39.0 Urinary tract infection, site not specified; F41.9 Anxiety disorder, unspecified; G89.29 Other chronic pain; K21.9 Gastro-esophageal reflux disease without esophagitis; I12.9 Hypertensive chronic kidney disease with stage 1 through stage 4 chronic kidney disease, or unspecified chronic kidney disease; J44.9 Chronic obstructive pulmonary disease, unspecified; D72.829 Elevated white blood cell count, unspecified; M47.812 Spondylosis without myelopathy or radiculopathy, cervical region; N18.9 Chronic kidney disease, unspecified; B96.20 Unspecified Escherichia coli [E. coli] as the cause of diseases classified elsewhere; B96.4 Proteus (mirabilis) (morganii) as the cause of diseases classified elsewhere; Z79.899 Other long term (current) drug therapy; Z91.81 History of falling; Z79.891 Long term (current) use of opiate analgesic; Z90.710 Acquired absence of both cervix and uterus; Z98.890 Other specified postprocedural states
CPT/HCPCS: 36415; 70450; 71045; 80048; 80053; 81001; 81003; 83735; 84443; 84484; 85025; 87040; 87086; 87150; 87186; 93005; 96360; 96361; 96372; 97161; 97165; 97530; 99285; G0378

== ENCOUNTER 2023-04-03 12:42 | Outpatient (RCR) | payer MEDICARE, OTHER, SELFPAY | END 2023-04-04 16:19 | disposition home or self-care (01) | LOC: OT 12:42 | PROVIDERS: PCP Family Medicine; Visit Provider Family Medicine | DX: R53.1 Weakness (principal); Z91.81 History of falling | CPT/HCPCS: 97165 ==

== ENCOUNTER 2023-04-03 12:51 | Outpatient (RCR) | payer MEDICARE, OTHER, SELFPAY | END 2023-05-13 08:00 | disposition home or self-care (01) | LOC: PT 12:51 | PROVIDERS: PCP Family Medicine; Visit Provider Family Medicine | DX: R53.1 Weakness (principal); Z91.81 History of falling | CPT/HCPCS: 97110; 97112; 97163 ==

== ENCOUNTER 2023-04-09 11:29 | Day surgery (SDC) | payer MEDICARE, OTHER, SELFPAY ==
[2023-04-09 12:24] VITALS: BP 142/84; PULSE 97; RESP 14; TEMP 36.7; O2SAT 95
[2023-04-09 12:57] VITALS: BP 174/78; PULSE 82; RESP 18; O2SAT 93
[2023-04-09] MEDS: DEXAMETHASONE SOD PHOS 10 MG/ML VIAL INJ (12:59)
[2023-04-09] MEDS: BUPIVACAINE HCL 0.25% PF 25 MG/10 ML VIAL 2 ML INJ (12:59)
[2023-04-09 13:06] VITALS: BP 149/71; PULSE 80; RESP 18; O2SAT 92
--- NOTE | 2023-04-09 13:06 | P.ON_ITS ---
Date of procedure: 04/09/23 Pre-op diagnosis: Cervical spondylosis Post-op diagnosis: same as pre-op Procedure: Procedure: Right C5-6, C6-7 radiofrequency ablation Medications: Bupivacaine 0.25% 2cc, dexamethasone 10mg, lidocaine 2% 3cc The patient was seen and examined in the preoperative holding area.? The site was marked.? Written informed consent was obtained and placed on the chart.? The patient was brought to the medical procedure unit and placed in the prone position.? A timeout was completed verifying correct patient, procedure, positioning, and special requirements.? The skin overlying the target points, the designated medial branch, were prepped and draped in the usual sterile fashion.? The target point was achieved with a 20-gauge 15 cm with a 10 mm curved active tip radiofrequency cannula under direct fluoroscopic visualization.? The needle was inserted at level C5 on the right side. Needle tip position was confirmed with lateral fluoroscopic position.? Motor stimulation was carried out at 2 Hz up to 5 volts with the absence of extremity activity.? This was repeated at level C6, 7 on right side.?? Sensory stimulation was carried out.? Concordant pain was realized at the above- mentioned sites.? Then radiofrequency lesioning was carried out times 90 seconds at 80 degrees times 2 lesions at each level.? The radiofrequency probe was removed prior to cannula removal.? The above-mentioned injectate was placed in 1 mL increments.? The needle was removed.? Insertion sites were covered.? The patient was taken to the postoperative recovery area and monitored for an appropriate length of time before being found suitable for discharge in the company of a responsible adult. Anesthesia: Local Surgeon: Drake Delatorre Pathology: none sent Condition: stable Disposition: no change
[2023-04-09] MEDS: LIDOCAINE HCL 2% 400 MG/20 ML MDV 9 ML INJ (13:07)
== END 2023-04-09 13:14 | disposition home or self-care (01) ==
PROVIDERS: PCP Family Medicine; Visit Provider Anesthesiology
DX: M47.812 Spondylosis without myelopathy or radiculopathy, cervical region (principal)
CPT/HCPCS: 64633; 64634; J1100

== ENCOUNTER 2023-05-09 12:28 | Outpatient (OUT) | payer MEDICARE, OTHER, SELFPAY ==
--- NOTE | 2023-05-09 13:07 | PM.CN ---
Consult Note: HPI Data of Consult Patient: known to practice within the last 3 years Requesting Physician: Sheri Lozano NP Primary Care Provider: Tierra Newell MD Consult Narrative Reason for consult: f/u Narrative: Jing Lewis a pleasant 78 year old female presents for evaluation and management of chronic neck pain. Patient recently underwent Right C5-6, C6-7 medial branch thermal RFA with 50% pain relief and functional improvement ongoing. Today rating pain 3/10 pain in right arm, shoulder, neck. Patient has not followed up with orthopedics since last visit, patient is going to call to make an appointment to be evaluated by Dr Malhotra. Right shoulder MRI completed august 2022. cc:: CC: Sheri Lozano NP Review of Systems ROS Status of ROS 10 or more systems reviewed and unremarkable except as noted in history and below Musculoskeletal Reports: neck pain and joint pain PFSH PFSH Medical History COPD (chronic obstructive pulmonary disease) ?J44.9 - Chronic obstructive pulmonary disease, unspecified (ICD-10) GERD (gastroesophageal reflux disease) ?K21.9 - Gastro-esophageal reflux disease without esophagitis (ICD-10) Chronic pain ?G89.29 - Other chronic pain (ICD-10) Anxiety ?F41.9 - Anxiety disorder, unspecified (ICD-10) HTN (hypertension) ?I10 - Essential (primary) hypertension (ICD-10) Chronic prescription opiate use ?Z79.891 - nursing home (current) use of opiate analgesic (ICD-10) Shoulder arthritis ?M19.019 - Primary osteoarthritis, unspecified shoulder (ICD-10) Cervical spondylosis ?M47.812 - Spondylosis without myelopathy or radiculopathy, cervical region (ICD-10) Surgical History History of lumpectomy of left breast ?Z98.890 - Other specified postprocedural states (ICD-10) History of back surgery ?Z98.890 - Other specified postprocedural states (ICD-10) History of hysterectomy ?Z90.710 - Acquired absence of both cervix and uterus (ICD-10) Family History Mother Family history of cancer Father Family history of stroke Grandfather Family history of stroke Social History Within the past year, how often did you have a drink containing alcohol: never Score interpretation: A score less than 3 is consistent with normal alcohol consumption. Smoking status: Former smoker Non-prescribed substance use: denies use Previous occupational history: retired Highest level of school completed/degree received: high school graduate Are you now , , , , never or living with a partner: Little interest or pleasure in doing things: not at all Feeling down, depressed, or hopeless: not at all Feel stressed/tense/nervous/anxious/difficulty sleeping: not at all Do you think of yourself as: straight/heterosexual Gender Identity: female Meds Home Medications and Allergies Home Medications Medication Instructions Recorded Confirmed Type OCUVITE 1 tab PO DAILY 10/26/22 04/09/23 History amlodipine 10 mg tablet 10 mg PO DAILY 10/26/22 04/09/23 History buspirone 10 mg tablet 10 mg PO BID 10/26/22 04/09/23 History cholecalciferol (vitamin D3) 50 50 mcg PO DAILY 10/26/22 04/09/23 History mcg (2,000 unit) capsule gabapentin 600 mg tablet 600 mg PO TID 10/26/22 04/09/23 History multivitamin 1 tab PO DAILY 10/26/22 04/09/23 History nortriptyline 25 mg capsule 25 mg PO DAILY 10/26/22 04/09/23 History omeprazole 40 mg capsule,delayed 40 mg PO DAILY 10/26/22 04/09/23 History release naproxen sodium 220 mg capsule 440 mg PO BID PRN pain 02/05/23 04/09/23 History (Aleve) oxycodone-acetaminophen 5 mg-325 1 tab PO BID PRN pain #60 tabs 02/21/23 04/09/23 Rx mg tablet (Percocet) calcium carbonate 600 mg calcium 600 mg PO DAILY 03/21/23 04/09/23 History (1,500 mg) tablet (Calcium) glucosamine HCl 1 tab PO .QD 03/21/23 04/09/23 History melatonin 1 tab PO .QHS PRN sleep 03/21/23 04/09/23 History meloxicam 15 mg tablet 7.5 mg PO DAILY 03/21/23 04/09/23 History solifenacin 10 mg tablet 10 mg PO DAILY 03/21/23 04/09/23 History baclofen 10 mg tablet 10 mg PO TID PRN muscle spasm #270 03/22/23 04/09/23 Rx tabs nitrofurantoin 100 mg PO BID 3 days #6 caps 03/22/23 04/09/23 Rx monohydrate/macrocrystals 100 mg capsule (Macrobid) gabapentin 600 mg tablet 600 mg PO TID #270 tabs 04/09/23 Rx oxycodone-acetaminophen 5 mg-325 1 tab PO BID PRN pain #60 tabs 04/09/23 Rx mg tablet (Percocet) Allergies Allergy/AdvReac Type Severity Reaction Status Date / Time No Known Drug Allergies Allergy Verified 04/09/23 12:20 Exam Constitutional Documenting provider has reviewed patient's vital signs: yes Common normals: no apparent distress, oriented x3, healthy appearing, alert and well nourished General appearance: cooperative HENMT Common normals: normocephalic, hearing grossly normal bilaterally and moist oral mucous membranes Head and scalp: normocephalic Eye Common normals: PERRL Pupil: PERRL Neck & C-Spine Common normals: full ROM General: normal visual inspection Other: axial neck pain improved, patient continues to have right shoulder pain and weakness of right arm Chest Common normals: inspection of chest normal Respiratory Common normals: normal respiratory effort, no retractions and no use of accessory muscles Extremity Right upper extremity: shoulder joint (pain and limited ROM, tender to touch) Other: limited ROM with abduction and overhead extension, unable to perform scratch test due to pain Extremity image (front): 1. 2. Neuro Common normals: oriented x3, CN's II-XII intact bilaterally, moves all extremities, no focal motor deficits, no sensory deficits noted and deep tendon reflexes 2+ bilaterally Sensorium/orientation: alert Motor exam: no movement abnormalities noted and strength abnormal (RUE 4/5) Psych Common normals: mental status grossly normal, thought process normal, cooperative, affect normal, speech normal and activity/motor behavior normal Speech: normal speech Thought process: normal thought process Assessment and Plan Assessment and Plan (1) Tendinopathy of right shoulder: Assessment and Plan: continue f/u with Dr Malhotra as previously planned (2) Primary osteoarthritis, right shoulder: (3) Chronic kidney disease: (4) Chronic prescription opiate use: Assessment and Plan: I feel these medications are improving the patient's quality of life and allow them to tolerate activities of daily living as well as participate in recreational activity.? The patient does not report intolerable side effects. The patient is NOT opioid naive and non-pharmacologic and non-opioid treatment has failed to significantly relieve the patient's pain and improve functionality. The patient has a diagnosis that is related to a somatic or visceral pain etiology. ? ?? I reviewed with the patient the potential risks and side effects with the use of? opioid medications including but not limited to respiratory depression,? sedation, and even . I verified the patient has access to naloxone should? these effects occur. I advised the patient to avoid the use of any other? sedation substances including alcohol, THC, and benzodiazepines while? taking opioid medications due to the risk of compounding side effects and? detrimental outcomes. I reviewed the [employer]NACK [employer] ATTENDANT, pain treatment agreement, urine? drug screen, and opioid start talking forms. The patient was advised to let? their family know they had Naloxone in case they would need to administer? the medication.? ?? A drug screen was completed within the last year, and no aberrancies were noted regarding their use of controlled substances. The patient understands they are subject to the terms and conditions of the pain contract that they have signed. ? ?? I have checked an [place] report on this patient today and there are no aberrancies noted in the prescribing history.? Plan continue baclofen 5mg TID PRN and gabapentin 300mg TID as adjusted at recent hospitalization continue mobic 15mg daily and notriptyline, benefitting from percocet 5-325mg BID PRN continue f/u with Dr Malhotra f/u in office in 3 months, can consider repeat right shoulder injection in office if Dr Malhotra does not have injection/surgical plans
== END 2023-05-09 12:29 | disposition home or self-care (01) ==
PROVIDERS: PCP Family Medicine; Visit Provider Nurse Practitioner
DX: M75.81 Other shoulder lesions, right shoulder (principal); M19.011 Primary osteoarthritis, right shoulder; N18.9 Chronic kidney disease, unspecified; Z79.891 Long term (current) use of opiate analgesic
CPT/HCPCS: G0463

== ENCOUNTER 2023-06-07 12:48 | Outpatient (OUT) | payer MEDICARE, OTHER, SELFPAY ==
--- OUTSIDE RECORDS SUMMARY | 2023-06-07 12:51 | XMS_ITS | CCD ---
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 Name Role Phone Unavailable Primary Care Provider UnavailJEREMIAH Max Primary Care Physician BRENT MALDONADO Consulting Unavailable LAKSHMIPATHY ., NARTAMIKA Admitting Chelly vailable LAKSHMIPATHY ., BARBARA Attending Chelly vailable REED, DR JEREMIAH Poole Primary Care Unavailable LAKSHMIPATHY ., NARGUERREROATH Consulting Chelly vailable JERRYSHMIPATHY ., BARBARA Attending Chelly vailable JERRYSHMIPATHY ., JAZMINATH Admitting Chelly vailable REED, DR JEREMIAH Poole Primary Care Unavailable REED, DR JEREMIAH Poole Primary Care Unavailable SAMSA ., LEANDRA Attending Unavailable SAMSA ., LEANDRA Admitting Unavailable SAMSA .LEANDRA Consulting Unavailable PAUL, DR EHSAN Haskins Consulting Unavailable DEREK, DR JEREMIAH Poole Primary Care Unavailable REED, DR JEREMIAH Poole Attending Unavailable REED, DR JEREMIAH Poole Admitting Unavailable REED, DR JEREMIAH Poole Consulting Unavailable REED, DR JEREMIAH Poole Attending Unavailable REED, DR JEREMIAH Poole Primary Care Unavailable REED, DR JEREMIAH Poole Admitting Unavailable REED, DR JEREMIAH Poole Consulting Unavailable SHANNON, DR SHIREEN Jamil Admitting Unavailabl e REINECK, DR SHIREEN Jamil Consulting Unavailabl e REINECK, DR SHIREEN Jamil Attending Unavailabl e REED, DR JEREMIAH Poole Primary Care Unavailable TIO BARKER Consulting Unavailable ANIRUDH BARAHONA Consulting Unavailable ISAC CONNOR Consulting Unavailable GAYATRI, DR HARSHAL Lockhart Attending Unavailable GAYATRI, DR HARSHAL Lockhart Admitting Unavailable DEREK, DR JEREMIAH Poole Primary Care Unavailable DR KAISER HERNANDEZ Consulting Unavailable AMITA .DR MEGAN Consulting Unavailable PAUL, DR EHSAN Haskins Consulting Unavailable GAYATRI, DR HARSHAL Lockhart Consulting Unavailable CHANI HWANG Consulting Unavailable EUN BARRY Consulting Unavailable DEREK, DR JEREMIAH Poole Primary Care Unavailable LAKSHMIPATHY ., NARENDRANATH Attending Chelly vailable LAKSHMIPATHY ., NARENDRANATH Admitting Chelly vailable LAKSHMIPATHY ., NARENDRANATH Consulting Chelly vailable RAMOS ., DR FELISHA Page Attending Unavailable RAMOS ., DR FELISAH Page Admitting Unavailable ZIEBROYER, DR EHSAN Haskins [...] Unavailable REED, DR JEREMIAH Poole Consulting Unavailable DEREK, DR JEREMIAH Poole Primary Care Unavailable FLORES [...] LAKSHMIPATHY ., NARENDRANATH Admitting Chelly vailable Serena Osorio Consulting Unavailable NAYAN .LINDSAY Consulting Unavailable ANDERSON, DR PEYTON Haskins Consulting Unavailable SHANNON, DR SHIREEN Jamil Attending Unavailchelsea e SHANNON, DR SHIREEN Jamil Admitting Unavailabl e DEREK, DR JEREMIAH Poole Primary Care Unavailable BRENT LONG Consulting Unavailable PAUL, DR EHSAN Haskins Consulting Unavailable LAKSHMIPATHY ., BARBARA Attending Chelly vailable LAKSHMIPATHY ., BARBARA Admitting Chelly vailable REED, DR JEREMIAH Poole Primary Care Unavailable LAKSHMIPATHY ., NARTAMIKA Consulting Chelly vailable RAMOS ., DR FELISHA Page Admitting Unavailable RAMOS ., DR FELISHA Page Consulting Unavailable RAMOS ., DR FELISHA Page Attending Unavailable DEREK, DR JEREMIAH Poole Primary Care Unavailable REED, DR JEREMIAH Poole Admitting Unavailable REED, DR JEREMIAH Poole Primary Care Unavailable REED, DR JEREMIAH Poole Attending Unavailable Derek, Jeremiah Unavailable Nandini BERNAL, Drake Glaser Attending Unavailable Giedraitis , Andjameel Glaser Attending Unavailable Giedraitis , Andrius Jailyn Attending Unavailable Giedraitis , Andrius Jailyn Attending Unavailable Giedraitis , Andrius Jailyn Attending Unavailable Ray Fofana Unavailable JYOTHI MARIN Attending Unavailab JYOTHI Casiano Attending Unavailab le Johnnie, Ehsan Consulting Unavailable Moussawi, Ahmad Admitting Unavailable Moussawi, Ahmad Attending Unavailable [place], Ehsan Consulting Unavailable [place], Ehsan Consulting Unavailable [place], Ehsan Consulting Unavailable [place], Ehsan Consulting Unavailable [place], Ehsan Consulting Unavailable [place], Ehsan Consulting Unavailable [place], Ehsan Consulting Unavailable [place], Ehsan Consulting Unavailable Allergies Allergy Classification Reported Allergen(s) Allergy Type Date of Onset Reaction(s) Facility (6 sources) patient allergy list reviewed by nurse or physicia Propensity to adverse reactions 9 Comment:Done [facility] Other (6 sources) Allergies Reconciled Propensity to adverse reactions Unknown [facility] Other Medications Current Medications Medication Drug Class(es) Dates Sig (Normalized) Sig (Original) acetaminophen 325 mg oral tablet (1 source) Start: 04-13-2023 take 2 tablets by mouth every six hours as needed for pain acetaminophen 325 mg Tab 650 mg = 2 tab(s), Oral, q6hr, PRN Pain, Refills(s) 0 Start Date: 04/13/23 Status: Ordered acetaminophen 325 mg / oxyCODONE hydrochloride 2.5 mg oral tablet (4 sources) Opioid Agonist Start: 02-18-2019 take 1 tablet by mouth every twelve hours as needed for pain acetaminophen-oxyc odone 325 mg-2.5 mg oral tablet 1 tab(s), Oral, q12hr as needed for pain, Refill(s) 0 Start Date: 02/18/19 Status: Ordered amLODIPine 10 mg oral tablet (10 sources) Dihydropyridine Calcium Channel Harlan Start: 04-21-2022 take 1 tablet by mouth once daily amlodipine 10mg amLODIPine 10mg, 1 (one) Tablet daily # 30, 04/21/2022, No Refill. Active oral daily for 30 *Reorder from [facility] for eRx and Interaction Alerts* Apr, Active Start: 02-11-2019 take 2 tablets by mo [facility] once daily amLODIPine 2.5 mg Tab 5 mg = 2 tab(s), Oral, Daily, # 90 tab(s), Refills(s) 0 Start Date: 02/11/19 Status: [facility]four hours amLODIPine Besylate 5 MG 1 tablet Orally Once a day Active Ocuvite (4 sources) Vitamin C Start: 02-03-2021 Ocuvite Oral, Daily, Refill(s) 0 Start Date: 02/03/21 Status: Ordered aspirin 81 mg delayed release oral tablet (5 sources) Platelet Aggregation Inhibitor, Nonsteroidal Anti-inflammatory Drug Start: 04-13-2023 take 1 tablet by mouth once daily aspirin 81 mg Oral EC Tab 81 mg = 1 tab(s), Oral, Daily, Refills(s) 0 Start Date: 04/13/23 Status: Ordered Baclofen (8 sources) gamma-Aminobutyric Acid-ergic Agonist Start: 06-05-2023 BACLOFEN 10 MG TABLET BACLOFEN 10 MG TABLET Start Date: 06/05/23 Status: Ordered Start: 03-31-2021 Baclofen 10MG Baclofen( 10MG Oral ) Active -Hx Entry Oral for 0 *Pick strength-form from [facility] for eRX* 30 Mar, 2022 Active Start: 03-31-2021 take 5 mg by mouth t hree times daily baclofen 10 mg Tab 5 mg = 0.5 tab(s), Oral, TID, Refills(s) 0 Start Date: 03/31/21 Status: Ordered busPIRone hydrochloride 10 m g oral tablet (9 sources) Start: 06-05-2023 busPIRone 10 m g Tab Refills(s) 0 Start Date: 06/05/23 Status: Ordered Start: 02-03-2021 take 1 mg by mouth [...] Status: Ordered gabapentin 300 mg oral capsule (10 sources) Anti-epileptic Agent Start: 04-13-2023 take 1 capsule by mouth three times daily gabapentin 300 mg Cap 300 mg = 1 cap(s), Oral, TID, Refills(s) 0 Start Date: 04/13/23 Status: Ordered Start: 02-11-2019 take 1 tablet by buffy th three times daily gabapentin 600 mg Tab 600 mg = 1 tab(s), Oral, TID, Refills(s) 0 Start Date: 02/11/19 Status: Ordered glucosamine 500 mg oral tablet (7 sources) Start: 02-11-2019 take 500 mg by mouth twice daily glucosamine 500 mg, Oral, BID, Refills(s) 0 Start Date: 02/11/19 Status: Ordered take 2 capsules by mouth once da patti Glucosamine 500 MG 2capsule with a meal Orally Once a day Active take 2 capsules by mouth once da patti Glucosamine 500 MG 2capsule with a meal Orally Once a day Active Handicap Placard (6 sources) Start: 11-25-2019 Handicap Placard HandiCap Placard , as directed # 1, 11/25/2019, No Refill. Active as directed for 0 duration 5 years *Reorder from [facility] for eRx and Interaction Alerts* Nov, Active Melatonin (4 sources) Start: 02-03-2021 melatonin Once a day (at bedtime), Refills(s) 0 Start Date: 02/03/21 Status: Ordered meloxicam 15 mg oral tablet (7 sources) Nonsteroidal Anti-inflammatory Drug Start: 04-12-2022 take 15 mg by mouth once daily Meloxicam 15 MG meloxicam( 15mg oral daily ) Active -Hx Entry Oral daily for 0 Mar, Active nortriptyline 25 mg oral capsule (10 sources) Tricyclic Antidepressant Start: 02-11-2019 take 1 capsule by mouth at bedtime nortriptyline 25 mg Cap 25 mg = 1 cap(s), Oral, Bedtime, Refills(s) 0 Start Date: 02/11/19 Status: Ordered omeprazole 40 mg delayed release oral capsule (10 sources) Proton Pump Inhibitor Start: 02-11-2019 take 1 capsule by mouth once daily omeprazole 40 mg Cap-DR 40 mg = 1 cap(s), Oral, Daily, Refills(s) 0 Start Date: 02/11/19 Status: Ordered solifenacin succinate 10 mg oral tablet (10 sources) Cholinergic Muscarinic Antagonist Start: 06-21-2022 End: 06-16-2023 take 1 tablet by mouth once daily Vesicare 10 mg Tab 10 mg = 1 tab(s), Oral, Daily, X 30 day(s), # 30 tab(s), Refills(s) 11, Pharmacy: [id number], 165, cm, 06/21/22 14:53:00 EST, Height/Length Dosing, 87, kg, 06/21/22 14:53:00 EST, Weight Dosing Start Date: 06/21/22 Stop Date: 06/16/23 Status: Ordered Tudorza Pressair 400mcg/actuat (6 sources) Start: 04-12-2022 take 1 puff(s) by inhalation twice daily Tudorza Pressair 400mcg/actuat Tudorza Pressair 400mcg/actuat, 1 (one) Puff BID # 1, 04/12/2022, Ref. x12. Active inhalation BID *Pick strength-form from [facility] for eRX* Mar, Active Start: 04-12-2022 take 1 puff(s) by in halation twice daily Tudorza Pressair 400mcg/actuat Tudorza Pressair 400mcg/actuat, 1 (one) Puff BID # 1, 04/12/2022, Ref. x12. Active inhalation BID for 30 *Pick strength-form from [facility] for eRX* 30 Mar, 2022 Active Vision Formula (6 sources) Vision Formula A ctive Problems Active Problems Problem Classification Problem Date Documented Date Episodic/Chronic Abdominal hernia (1 source) Diaphragmatic hernia without obstruction or gangrene; Translations: [DIAPH HERNIA W/O OBST/GANGRENE] Onset: 3 Episodic Abdominal pain (4 sources) Abdominal tenderness 02-03-2021 Episodic Anxiety disorders (7 sources) Anxiety; Translations: [Anxiety] Onset: 3 Chronic Chronic kidney disease (6 sources) Chronic kidney disease stage 3; Translations: [Chronic kidney disease, stage 3 (moderate)] Chronic Chronic obstructive pulmonary disease and bronchiectasis (13 sources) Centrilobular emphysema; Translations: [Chronic obstructive pulmonary disease with (acute) exacerbation] Onset: 2 Chronic Diseases of white blood cells (1 source) Elevated white blood cell count, unspecified; Translations: [ELEVATED WHITE BLOOD CELL COUNT UNS] Onset: 2 Chronic Esophageal disorders (1 source) Gastroesophageal reflux disease without esophagitis; Translations: [Gastro-esophageal reflux disease without esophagitis] Onset: 3 Chronic Essential hypertension (10 sources) Essential (primary) hypertension; Translations: [Hypertensive disorder] Onset: 2 Chronic Genitourinary symptoms and ill-defined conditions (20 sources) Dysuria; Translations: [Increased frequency of urination] Onset: 2 02-03-2021 Episodic Hypertension with complications and secondary hypertension (7 sources) Hypertensive chronic kidney disease with stage 1 through stage 4 chronic kidney disease, or unspecified chronic kidney disease; Translations: [Hypertensive renal disease] Onset: 2 Chronic Malaise and fatigue (3 sources) Other fatigue; Translations: [Weakness] Onset: 2 Episodic Mood disorders (1 source) Depressive disorder; Translations: [Depression, unspecified] Onset: 3 Chronic Nutritional deficiencies (4 sources) Vitamin D deficiency, unspecified; Translations: [VITAMIN D DEFICIENCY UNSPECIFIED] Onset: 2 Chronic Osteoarthritis (1 source) Unspecified osteoarthritis, unspecified site; Translations: [UNSPECIFIED OSTEOARTHRITIS UNS SITE] Onset: 2 Chronic Other aftercare (1 source) Long-term current use of drug therapy; Translations: [Other custodial (current) drug therapy] Onset: 3 Episodic Other connective tissue disease (1 source) Other muscle spasm; Translations: [OTHER MUSCLE SPASM] Onset: 3 Episodic Other diseases of bladder and urethra (3 sources) Detrusor overactivity; Translations: [Overactive bladder] Onset: 3 Chronic Other diseases of bladder and urethra (4 sources) Overactive bladder 03-31-2021 Chronic Other diseases of bladder and urethra (2 sources) Male urethral stricture; Translations: [Unspecified urethral stricture, male, unspecified site] Onset: 3 Episodic Other diseases of bladder and urethra (4 sources) Traumatic urethral stricture 02-03-2021 Episodic Other diseases of bladder and urethra (4 sources) Urethral stricture 02-11-2019 Episodic Other diseases of kidney and ureters (6 sources) Hyperparathyroidism due to renal insufficiency; Translations: [Secondary hyperparathyroidism of renal origin] Chronic Other endocrine disorders (6 sources) Primary hyperparathyroidism; Translations: [Primary hyperparathyroidism] Chronic Other endocrine disorders (6 sources) Hyperparathyroidism; Translations: [Hyperparathyroidism, unspecified] Chronic Other [...] Episodic Other nutritional; endocrine; and metabolic disorders (6 sources) Hypercalcemia; Translations: [Hypercalcemia] Chronic Other nutritional; [...] ORGANISM] Onset: 2 Episodic Residual codes; unclassified (6 sources) Chronic pain; Translations: [Chronic pain] Episodic Residual codes; unclassified (1 source) Altered mental status; Translations: [Altered mental status, unspecified] Onset: 3 Episodic Spondylosis; intervertebral disc disorders; other back problems (12 sources) Spondylosis without myelopathy or radiculopathy, cervical region; Translations: [Spondylosis without myelopathy or radiculopathy, lumbar region] Onset: 2 Chronic Spondylosis; intervertebral disc disorders; other back problems (11 sources) Backache; Translations: [Cervicalgia] Onset: 2 02-11-2019 Episodic Sprains and strains (8 sources) Strain of muscle(s) and tendon(s) of the rotator cuff of right shoulder, subsequent encounter; Translations: [Strain of muscle(s) and tendon(s) of the rotator cuff of right shoulder, initial encounter] Onset: 3 Episodic Substance-related disorders (4 sources) Cigarette smoker 10-21-2019 Chronic Thyroid disorders [...] EXPOS COVID-19] Onset: 2 Urinary tract infections (4 sources) Chronic cystitis 10-21-2019 Chronic Urinary tract infections (7 sources) Acute urinary tract infection; Translations: [Urinary tract infectious disease] Onset: 4 02-03-2021 Episodic Past or Other Problems Problem [...] 02-25-2022 Episodic Other aftercare (1 source) Other buttermaker continuous churn (current) drug therapy; Translations: [OTH LONG-TERM CURRENT DRUG THERAPY] Onset: 01-09-2022 Episodic Other [...] OF NICOTINE DEPEND] Onset: 01-09-2022 Episodic Unclassified (4 sources) Finding of sensation of bladder 02-03-2021 Unclassified (1 source) LOW BACK PAIN, UNSPECIFIED; Translations: [LOW BACK PAIN, UNSPECIFIED] Onset: 05-11-2022 Results Test Name Value Interpretation Reference Range Facility Insurance Correspondence Off iceon 04-19-2023 Insurance Correspondence Office [id number] 8#1.00TIFF Normal [facility] Discharge Instructionson Discharge Instructions [id number]#1.00TIFF Normal [facility] Outside Recordson 04-14-2023 Outside Records [id number]#1.00TIFF Normal [facility] BMPon 04-13-2023 Anion gap [Moles/Vol] 14 mmol/L Normal 6-16 [facility] Comment on above: Performed By: #### 2 [id number], [id number], [id number] #### [facility] [address] [place] [address] Calcium [Mass/Vol] 9.1 mg/dL Normal 8.9-11.1 [facility] Comment on above: Performed By: #### 2 [id number], [id number], [id number] #### [facility] [address] [place] [address] Chloride [Moles/Vol] 114 mmol/L High 101-111 [facility] Comment on above: Performed By: #### 2 [id number], [id number], [id number] #### [facility] [address] [place] [address] CO2 [Moles/Vol] 20 mmol/L Low 21-31 [facility] Comment on above: Performed By: #### 2 164303, [id number], [id number] #### [facility] [address] [place] [address] Creatinine [Mass/Vol] 1.2 mg/dL Normal 0.5-1.3 [facility] Comment on above: Performed By: #### 2 [id number], [id number], [id number] #### [facility] [address] [place] [address] Glucose [Mass/Vol] 96 mg/dL Normal 55-199 [facility] Comment on above: Result Comment: If t his glucose result represents a fasting glucose, interpretation should refer to the following reference range: 55-99 mg/dL Performed By: #### 2 [id number], [id number], [id number] #### [facility] [address] [place] [address] Potassium [Moles/Vol] 3.9 mmol/L Normal 3.5-5.3 [facility] Comment on above: Performed By: #### 2 [id number], [id number], [id number] #### [facility] [address] [place] [address] Sodium [Moles/Vol] 144 mmol/L Normal 135-145 [facility] Comment on above: Performed By: #### 2 [id number], [id number], [id number] #### [facility] [address] [place] [address] Urea nitrogen [Mass/Vol] 29 mg/dL High 5-21 [facility] Comment on above: Performed By: #### 2 [id number], [id number], [id number] #### [facility] [address] [place] [address] Urea nitrogen/Creatinine [Mass ratio] 24 No Units High 10-20 [facility] Comment on above: Performed By: #### 2 [id number], [id number], [id number] #### [facility] [address] [place] [address] CHEMISTRYOrdered By: SYSTEM SYSTEM on 04-13-2023 Anion gap [Moles/Vol] 14 mmol/L Normal 6 - 16 mEq/L [facility] Calcium [Mass/Vol] 9.1 mg/dL Normal 8.9 - 11. 1 mg/dL [facility] Chloride [Moles/Vol] 114 mmol/L High 101 - 1 11 mmol/L [facility] Cholesterol [Mass/Vol] 164 mg/dL Normal 120 - 200 mg/dL [facility] Cholesterol in HDL [Mass/Vol] 62 mg/dL Invalid Interpretation Code [facility] Comment on above: Interpretive Data: H DL > or equal to 60 mg/dL: Low cardiovascular risk HDL < 40 mg/dL : High cardiovascular risk Cholesterol in LDL [Mass/Vol] 73 mg/dL Normal <=129mg/dL [facility] Cholesterol in VLDL [Mass/Vol] 21 mg/dL Normal 7 - 40 mg/dL [facility] CO2 [Moles/Vol] 20 mmol/L Low 21 - 31 mmol/L [facility] Creatinine [Mass/Vol] 1.2 mg/dL Normal 0.5 - 1.3 mg/dL [facility] GFR/1.73 sq M.predicted among non-blacks MDRD (S/P/Bld) [Vol rate/Area] 47 mL/min/1.73 m2 Low >=59mL/min/1 .73 m2 [facility] Comment on above: Interpretive Data: C hronic kidney disease could be indicated at eGFR's of less than 60 mL/min/1.73m2. Kidney failure is indicated at less than 15 mL/min/1.73m2. Glucose [Mass/Vol] 96 mg/dL Normal 55 - 199 mg/dL [facility] Comment on above: Interpretive Data: I f this glucose result represents a fasting glucose, interpretation should refer to the following reference range: 55-99 mg/dL Potassium [Moles/Vol] 3.9 mmol/L Normal 3.5 - 5.3 mmol/L [facility] Sodium [Moles/Vol] 144 mmol/L Normal 135 - 145 mmol/L [facility] Triglyceride [Mass/Vol] 106 mg/dL Normal <=149mg/dL [facility] Urea nitrogen [Mass/Vol] 29 mg/dL High 5 - 21 mg/dL [facility] Urea nitrogen/Creatinine [Mass ratio] 24 mg/mg High 10 - 20 [facility] Discharge Note-Nursingon Discharge Note-Nursing AARON JJ :1945 Visit Date:04/12/2023 Inpatient Discharge Instructions Your [...] Medications List acetaminophen (acetaminophen 325 mg Tab) acetaminophen-oxycod one (acetaminophen-oxyco done 325 mg-2.5 mg oral tablet) amlodipine (amLODIPine [...] oral tablet) glucosamine oxymetazoline nasal (Afrin 0.05% Mcdaniel) Procedure History Cystourethroscopy with dilation of urethral [...] Pending Diagnostic Test Results None Pharmacy Information [facility] Discharge Instructions Follow up appts as writtenNo driving until cleared by PCP or neuroTake all medications as ordered, monitor prn medication use Previously Scheduled Follow-Up Appointments Sunday 1:00 PM EST With: BRENDA MARIN PA-C Where: [facility] ED Note-Physicianon 04-13-20 ED Note-Physician Basic Information Time Seen: Ezio VILLAGRAN Abran M. 04/12/2023 12:16 Chief Complaint AMS History of [...] had a urinary tract infection diagnosed at [place] for which she is on antibiotics. She [...] deep vein thrombosis (DVT) prophylaxis (Z79.899: Other custodial (current) drug therapy) Depression, unspecified (F32.A: Depression, [...] 500 mL 500 mL, 500 mL, IV [id number] units/mLInjection [F], 5000 unit(s), SubCutaneous oxym0.05Spr [F], [...] dilation of uret (more content not included)... [facility] Comment on above: Result Comment: Elec tronically Signed By: Abran Holguin DO\.br\Date and Time Signed: 04/12/23 22:13 EST Inpatient Clinical Summaryon 04-13-2023 Inpatient Clinical Summary [place] [address] Clinical Summary Person Information: Name: AARON JJ Age: 78 Years : 1945 Sex: Female PCP: JEREMIAH REED MD Marital Status: Race: White Ethnicity: Non- or Language: Beninese Visit Id: Visit Reason: Altered mental status; AMS Speciality: Acuity: Enc Type: Observation Med Service: Medical Arrival: 04/12/2023 12:15:14 Discharge: Dispo Type: Admitted as IP to this Hosp Address: [address] [place] [address] [address] [place] [id number] Provider Notes: Diagnosis: 1:AMS (altered mental status); [...] Mouth every 6 hours as needed Pain. acetaminophen-oxycod one (acetaminophen-oxyco done 325 mg-2.5 mg oral tablet) 1 Tablets [...] Refills: 11. Care Team Members: Attending Physician: [facility], [facility]ician: Ehsan Blair MD Referring Physician: Follow up: With: Address: When: Ehsan Blair MD [address] [address] Within 1 to 2 weeks Comments: This office is closed on Fridays. Please call the office on Sunday April 16, 2023 for a follow up appiontment. Thank you. With: Address: When: JEREMIAH REED [address] [place], [place] [id number] [facility] () Within 2 to 4 days Comments: Call for followup appointment With: Address: When: [facility] Comments: Call for followup appointment for anxiety/depression care. Type Location Start Finish State URO Office Visit [facility] AYDE Terrazas 06/05/2023 1:00 PM 06/05/2023 1:15 PM Confirmed Patient Education Information: Confusion aspirin Normal [facility] Inpatient Patient Summaryon 04-13-2023 Inpatient Patient Summary [address] [address] Patient Discharge Instructions PERSON INFORMATION Name: AARON JJ Date of : 1945 Current Date: 04/13/2023 12:14:32 PHYSICIANS Admitting Physician: Tessie BERNAL, Efrain Primary Care Physician: JEREMIAH REED MD Comment: [...] results: None Follow up: With: Address: When: [facility]hsan Blair [facility] [address] [place] [address] Within 1 to 2 weeks Comments: This office is closed on Fridays. Please call the office on Sunday April 16, 2023 for a follow up appiontment. Thank you. With: Address: When: JEREMIAH REED [address] [place] [address] Business (1) Within 2 to 4 days Comments: Call for followup appointment With: Address: When: [facility] Comments: Call for followup appointment for anxiety/depression care. In the event that this physician does not participate in your insurance network, please consult with your insurance company to find a nearby participating provider. Type Location Start Finish State URO Office Visit [facility] AYDE Terrazas 06/05/2023 1:00 PM 06/05/2023 1:15 PM Confirmed Comment: АННА Zhang CYNTHIA J, have received the attached patient education materials/instructio ns and have verbalized understanding: Patient Signature Date [...] to Continue with No Changes Other Medications acetaminophen-oxycod one (acetaminophen-oxyco done 325 mg-2.5 mg oral tablet) 1 Tablets [...] Mouth 2 adán (more content not included)... [facility] Interdisciplinary Note - Danie e Manageron 04-13-2023 Interdisciplinary Note - Mine Safety Director Pt is awake and alert in bed, previously rounded with Radha PENNY. Pending Neurology to see and pending MRI. Pending therapy evals, Observation status reviewed [facility] form reviewed, signed by pt and original provided. PT is independent from home, family at bedside and will transport at [place], Declines any concerns or anticipate DC needs. . PCP verified and insurance information reviewed and DME discussed. Contact information provided and white board updated. CRM returned to pt room to discuss DC plans. PT= HH and pt is agreeable to HH at [place], prefers to use [facility] as she has used in past, referral to resource center, anticipate DC home today. Nursing and WOOL BUYER updated. Normal [facility] Comment on above: Result Comment: Elec tronically Signed By: Thu ALVARES, Sallie\.mario\Date and Time Signed: 04/13/23 12:17 EST Interdisciplinary Note - Ashly n 04-13-2023 Interdisciplinary Note - OT OT [facility] six clicks score = no further OT needs. Patient requires Dist sup w/ transfers. completes Adls w/ dist sup after set up. Dc inpatient OT services as pt appears close to baseline status and has all bathroom dme already in place at home. [facility] Interdisciplinary Note - Soc ial Workeron 04-13-2023 Interdisciplinary Note - Autocad Technician This SW met with patient today to [...] of any substances. SW will remain available. Normal [facility] Lipid Panelon 04-13-2023 Cholesterol [Mass/Vol] 164 mg/dL Normal 120-200 Fi [facility] Comment on above: Performed By: #### 2 792968, 2459497, [id number] #### [facility] Laboratory [address] [place] [address] Cholesterol in HDL [Mass/Vol] 62 mg/dL Invalid Interpretation Code [facility] Comment on above: Result Comment: HDL > or equal to 60 mg/dL: Low cardiovascular risk HDL < 40 mg/dL : High cardiovascular risk Performed By: #### 2 360359, 9896335, [id number] #### [facility] [address] [place] [address] Cholesterol in LDL [Mass/Vol] 73 mg/dL Normal <=129 [facility] Comment on above: Performed By: #### 2 902758, 0828476, 42015068 #### [facility] [address] [place] [address] Cholesterol in VLDL [Mass/Vol] 21 mg/dL Normal 7-40 [facility] Comment on above: Performed By: #### 2 499367, 9187725, 62234077 #### [facility] [address] [place] [address] Triglyceride [Mass/Vol] 106 mg/dL Normal <=149 [facility] Comment on above: Performed By: #### 2 949091, 8130787, 79624071 #### [facility] [address] [place] [address] MRI Brain w/o Contraston MRI Brain w/o [...] LESLEY Technologist: MAXI Technical Comments None Normal [facility] Message from Medicareon 120 Message from Medicare [id number] 20 [id number] #1.00TIFF Normal [facility] Monitor Recordon 04-13-2023 Monitor Record [id number] 6#1.00TIFF Normal [facility] Monitor Record [id number] 8#1.00TIFF Normal [facility] Monitor Record [id number] 0#1.00TIFF Normal [facility] eGFRon 04-13-2023 GFR/1.73 sq M.predicted among non-blacks MDRD (S/P/Bld) [Vol rate/Area] 47 mL/min/1.73 m2 Low >=59 [facility] Comment on above: Order Comment: Order added by Discern Expert. Result Comment: Manager Requirements sally kidney disease could be indicated at eGFR's of less than 60 mL/min/1.73m2. Kidney failure is indicated at less than 15 mL/min/1.73m2. Performed By: #### 2 021442, 6741261, 76443962 #### [facility] [address] [place] [address] Auto Diffon 04-12-2023 Basophils/100 WBC (Bld) 0.4 % Normal 0.0-2.0 [facility] Comment on above: Order Comment: Order Added by Discern Expert. Performed By: #### 1 6347946, 8017910, 03543143, 2714696, 13712669, 605302633, 85247630, 6631424, 1811937, 5846384, 0528917, 1122560 ####[facility] [address] [place] [address] Basophils/Leukocytes Auto (Bld) [Pure # fraction] 0.1 E9/L Normal 0.0-0.2 [facility] Comment on above: Order Comment: Order Added by Discern Expert. Performed By: #### 1 4502663, 4822256, 11329698, 6473218, 98463449, 900145514, 93225699, 9916273, 6567792, 3389243, 8802294, 9983783 ####[facility] [address] [place] [address] Eosinophils/100 WBC (Bld) 0.1 % Normal 0.0-8.0 [facility] Comment on above: Order Comment: Order Added by Discern Expert. Performed By: #### 1 0970548, 5965437, 96866456, 2139287, 11660014, 110839629, 22904021, 6359984, 3513109, 6145431, 1441672, 9475678 ####[facility] [address] [place] [address] Eosinophils/Leukocytes Auto (Bld) [Pure # fraction] 0.0 E9/L Normal 0.0-0.5 [facility] Comment on above: Order Comment: Order Added by Discern Expert. Performed By: #### 1 5596038, 4099517, 97992254, 3305940, 72485704, 814432727, 49547463, 3355577, 2700676, 8416701, 2930387, 7289825 ####[facility] [address] [place] [address] Lymphocytes/100 WBC (Bld) 9.7 % Low 14.0-50.0 [facility] Comment on above: Order Comment: Order Added by Discern Expert. Performed By: #### 1 0929257, 1229047, 17918061, 1166524, 60835341, 788478946, 63173226, 7452767, 5896403, 5190586, 2372613, 9138536 ####[facility] [address] [place] [address] Lymphocytes/Leukocytes Auto (Bld) [Pure # fraction] 1.5 E9/L Normal 1.0-4.0 [facility] Comment on above: Order Comment: Order Added by Discern Expert. Performed By: #### 1 3886159, 4041293, 52818118, 6600500, 55064399, 235879350, 53614077, 6196689, 1816631, 1755811, 6236723, 9626023 ####[facility] [address] [place] [address] Monocytes/100 WBC (Bld) 7.8 % Normal 4.0-14.0 [facility] Comment on above: Order Comment: Order Added by Discern Expert. Performed By: #### 1 3371891, 9029604, 39975361, 9264283, 05245377, 193917810, 74346857, 6909954, 3310735, 4313394, 7926120, 6538502 ####[facility] [address] [place] [address] Monocytes/Leukocytes Auto (Bld) [Pure # fraction] 1.2 E9/L High 0.2-1.0 [facility] Comment on above: Order Comment: Order Added by Discern Expert. Performed By: #### 1 1625135, 5226670, 46056876, 4817777, 06562745, 002315139, 81659189, 7899721, 1206786, 1900295, 4976348, 1820835 ####[facility] [address] [place] [address] Neutrophils/100 WBC (Bld) 82.0 % High 36.0-75.0 [facility] Comment on above: Order Comment: Order Added by Discern Expert. Performed By: #### 1 6425499, 0049668, 97214753, 9057772, 44822712, 891052869, 20628272, 4029674, 0256502, 8871551, 8507399, 5099788 ####[facility] [address] [place] [address] Neutrophils/Leukocytes Auto (Bld) [Pure # fraction] 12.4 E9/L High 2.0-7.5 [facility] Comment on above: Order Comment: Order Added by Discern Expert. Performed By: #### 1 0355363, 5686975, 39528271, 7627103, 91918028, 787564310, 00387224, 2586871, 8623571, 6089461, 3166146, 8143753 ####[facility] [address] [place] [address] BMPon 04-12-2023 Creatinine [Mass/Vol] 1.8 mg/dL High 0.5-1.3 [facility] Comment on above: Performed By: #### 1 5749549, 9117882, 90605300, 5115308, 96202324, 410175358, 11428338, 7180946, 6832921, 3276543, 2772469, 9360036 ####[facility] [address] [place] [address] Urea nitrogen [Mass/Vol] 39 mg/dL High 5-21 [facility] Comment on above: Performed By: #### 1 6462963, 9658405, 85173554, 4564030, 32937913, 399793011, 58974860, 0701759, 4411674, 5228991, 5713591, 8300910 ####[facility] [address] [place] [address] Urea nitrogen/Creatinine [Mass ratio] 22 No Units High 10-20 [facility] Comment on above: Performed By: #### 1 2968369, 7706974, 20820815, 0460642, 69020032, 825577750, 31588959, 1055755, 9988828, 2684714, 4798369, 8331060 ####[facility] [address] [place] [address] Anion gap [Moles/Vol] 16 mmol/L Normal 6-16 [facility] Comment on above: Performed By: #### 1 2508888, 4729607, 47088090, 1516968, 06350617, 088534998, 15038925, 8387066, 3156979, 3572684, 8111715, 9097239 ####[facility] [address] [place] [address] Calcium [Mass/Vol] 10.0 mg/dL Normal 8.9-11.1 [facility] Comment on above: Performed By: #### 1 4485186, 1567810, 79598814, 9298467, 59156887, 143825586, 26427144, 3997780, 8156193, 6371387, 2538729, 3228766 ####[facility] [address] [place] [address] Chloride [Moles/Vol] 109 mmol/L Normal 101-111 [facility] Comment on above: Performed By: #### 1 2802276, 7931933, 15838359, 5473152, 60626375, 955926523, 61015696, 8966821, 3477126, 5401134, 8960017, 6897046 ####[facility] [address] [place] [address] CO2 [Moles/Vol] 23 mmol/L Normal 21-31 [facility] Comment on above: Performed By: #### 1 6940913, 4403374, 95241008, 1420386, 90506972, 960886604, 07642594, 4737171, 3984222, 1385556, 4512511, 7603232 ####[facility] [address] [place] [address] Glucose [Mass/Vol] 89 mg/dL Normal 55-199 [facility] Comment on above: Result Comment: If t his glucose result represents a fasting glucose, interpretation should refer to the following reference range: 55-99 mg/dL Performed By: #### 1 4114607, 5026410, 70668321, 6992254, 34707024, 683113275, 32720205, 7560715, 9961855, 3748243, 5289107, 0034074 ####[facility] [address] [place] [address] Potassium [Moles/Vol] 4.3 mmol/L Normal 3.5-5.3 [facility] Comment on above: Performed By: #### 1 8341183, 7875950, 76060088, 7660741, 38728169, 466370837, 42920018, 7542085, 6566900, 8433886, 2238042, 5774727 ####[facility] [address] [place] [address] Sodium [Moles/Vol] 144 mmol/L Normal 135-145 [facility] Comment on above: Performed By: #### 1 8101389, 4599055, 94169819, 8156956, 53017314, 925502612, 01781643, 6458936, 1765553, 2782938, 6516865, 1585674 ####[facility] [address] [place] [address] CBC w/ Auto Diffon 3 Erythrocyte distribution width (RBC) [Ratio] 15.3 % High 10.9-14.2 [facility] Comment on above: Performed By: #### 1 4395280, 3770593, 60200319, 0047407, 49431942, 341452435, 10141902, 5233768, 5115010, 3557352, 3371906, 9668807 #### [facility] [address] [place] [address] Hematocrit (Bld) [Volume fraction] 44.4 % Normal 34.0-46.0 [facility] Comment on above: Performed By: #### 1 1713112, 6875734, 15551940, 1551360, 69595658, 572501598, 78437577, 6280721, 1819653, 1716266, 9055711, 9149081 #### [facility] [address] [place] [address] Hemoglobin (Bld) [Mass/Vol] 14.0 g/dL Normal 12.0-16.0 [facility] Comment on above: Performed By: #### 1 4430876, 2242311, 51351158, 1476043, 44555215, 116204589, 54902661, 3678885, 0071820, 4052014, 9803366, 7354453 #### [facility] [address] [place] [address] MCH (RBC) [Entitic mass] 28.5 pg Normal 27.0-34.0 [facility] Comment on above: Performed By: #### 1 5736471, 5664748, 07703927, 4446755, 15708671, 013599791, 65229764, 5668992, 9585103, 8753357, 4288938, 0826106 #### [facility] [address] [place] [address] MCHC (RBC) [Mass/Vol] 31.6 g/dL Normal 31.4-36.0 [facility] Comment on above: Performed By: #### 1 4231135, 8593562, 94705043, 9897527, 38656524, 056646512, 03043008, 3179209, 5808988, 3772223, 4159319, 3469904 #### [facility] [address] [place] [address] MCV (RBC) [Entitic vol] 89.9 fL Normal 80.0-100.0 [facility] Comment on above: Performed By: #### 1 2153015, 5280907, 30841652, 0448719, 55491985, 501313963, 25097802, 5747961, 1027414, 5412173, 2261140, 1542264 #### [facility] [address] [place] [address] Platelet mean volume (Bld) [Entitic vol] 9.8 fL Normal 6.4-10.8 [facility] Comment on above: Performed By: #### 1 0765985, 3080363, 58627365, 0886807, 20019754, 897446202, 06071621, 9413256, 7405425, 0504289, 8265701, 5448964 #### [facility] [address] [place] [address] Platelets (Bld) [#/Vol] 285.0 E9/L Normal 150.0-500.0 [facility] Comment on above: Performed By: #### 1 1319039, 2724400, 29850124, 4227116, 44891690, 094367839, 28484907, 5484380, 5227877, 5234042, 2261640, 1834233 #### [facility] [address] [place] [address] RBC (Bld) [#/Vol] 4.9 E12/L Normal 4.3-5.9 [facility] Comment on above: Performed By: #### 1 4998051, 3993191, 60253031, 7926260, 43088030, 401011193, 79429362, 3606947, 8416441, 7333034, 5401733, 9214450 #### [facility] [address] [place] [address] WBC corrected for nucl RBC Auto (Bld) [#/Vol] 15.1 E9/L High 4.0-11.0 [facility] Comment on above: Performed By: #### 1 0878192, 2743981, 26463877, 6712296, 40174200, 387524782, 27167630, 5306024, 9294931, 6878892, 0253357, 8814129 #### [facility] [address] [place] [address] CHEMISTRYOrdered By: SYSTEM SYSTEM on 04-12-2023 Amphetamines Screen method >1000 ng/mL Ql (U) Negative 7 (04/12/23 2:32 [...] 4.4 g/dL Normal 3.3 - 5.0 gm/dL [facility] Albumin/Globulin [Mass ratio] 1.3 {ratio} Normal [...] Bilirubin [Mass/Vol] 0.7 mg/dL Normal 0.0 - 1 .1 mg/dL [facility] Bilirubin.direct [Mass/Vol] 0.1 mg/dL Normal 0.1 - 0.4 mg/dL [facility] Bilirubin.indirect [Mass or moles/Vol] 0.6 mg/dL Normal 0.1 - 0.9 mg/dL [facility] Calcium [Mass/Vol] 10.0 mg/dL Normal 8.9 - 11. 1 mg/dL [facility] Chloride [Moles/Vol] 109 mmol/L Normal 101 - 1 11 mmol/L [facility] CO2 [Moles/Vol] 23 mmol/L Normal 21 - 31 mmol/L [facility] Cobalamin (Vitamin B12) [Mass/Vol] 1018 pg/mL Normal 50 - 1500 pg/mL [facility] Creatinine [Mass/Vol] 1.8 mg/dL High 0.5 - 1.3 mg/dL [facility] Ethanol [Mass/Vol] mg/dL Normal <=7mg/dL [facility] R emisol Folate [Mass/Vol] ng/mL Normal >=6.7ng/mL [facility] Re misol GFR/1.73 sq M.predicted among non-blacks MDRD (S/P/Bld) [Vol rate/Area] 29 mL/min/1.73 m2 Low >=59mL/min/1 .73 m2 [facility] Chem S Comment on above: Interpretive Data: C hronic kidney disease could be indicated at eGFR's of less than 60 mL/min/1.73m2. Kidney failure is indicated at less than 15 mL/min/1.73m2. Globulin (S) [Mass/Vol] 3.3 g/dL Normal 1.4 - 4.0 gm/dL [facility] Glucose [Mass/Vol] 89 mg/dL Normal 55 - 199 mg/dL [facility] Comment on above: Interpretive Data: I f this glucose result represents a fasting glucose, interpretation should refer to the following reference range: 55-99 mg/dL Magnesium [Mass/Vol] 2.0 mg/dL Normal 1.3 - 2 .4 mg/dL [facility] Potassium [Moles/Vol] 4.3 mmol/L Normal 3.5 - 5.3 mmol/L [facility] Protein [Mass/Vol] 7.7 g/dL Normal 6.0 - 7.8 gm/dL [facility] Sodium [Moles/Vol] 144 mmol/L Normal 135 [...] Sensitivity Troponin I Instructions For Use, Laly Jonathan, December 2017) TSH Qn 0.52 m[IU]/L Normal 0.34 - 5.60 mcIU/mL [facility] Remisol Urea nitrogen [Mass/Vol] 39 mg/dL High 5 - 21 mg/dL [facility] Remisol Urea nitrogen/Creatinine [Mass ratio] 22 mg/mg High 10 - 20 [facility] Remisol CHEMISTRYOrdered By: Shauna kendall on 04-12-2023 HbA1c (Bld) [Mass fraction] 5.9 % Normal <=5.9% [facility] ChemAutoSS CHEMISTRYOrdered By: Lab ROP User on 04-12-2023 Glucose [Mass/Vol] 88 mg/dL Normal 55 - 99 mg/dL [facility] POC Subsection Comment on above: Result Comment: Jose matos RN/ POC Username [place] Invalid Interpretation Code [facility] POC Subsection Sodium [Moles/Vol] [id number] mmol/L Invalid Interpretation Code [facility] POC Subsection Sodium [Moles/Vol] 789311909 mmol/L Invalid Interpretation Code [facility] POC Subsection COAGULATIONOrdered By: Myra Grayson on 04-12-2023 aPTT Coag (PPP) [Time] 29.5 s Normal 25.1 - 36.5 second(s) [facility] Auto Coag Comment on above: Interpretive Data: Gunjan ochoa 15 days - 4 weeks 1 - [...] the same coagulation reagent and instrumentation as [facility]. Currently there are no coagulation studies available worldwide for children to 14 days, and no normal ranges. Heparin therapeutic range (represented by Anti-Factor Xa activity of 0.2 - 0.4 U/mL) corresponds to PTT of 56.6 - 109.0 sec. INR Coag (PPP) [Relative time] 0.9 {INR} Invalid Interpretation Code [facility] Auto Coag Comment on above: Interpretive Data: I NR results are specifically intended to assess patients stabilized on long-term Anticoagulation therapy suggested INR s Less Intensive Anticoagulation 2.0 3.0 Conventional Range 3.0 4.5 PT Coag (PPP) [Time] 10.4 s Normal 9.4 - 1 2.5 second(s) [facility] Auto Coag Comment on above: Interpretive Data: 1 5 days - 4 weeks 1 - 5 months 6 -11 months 1 5 years 6 10 years 11 -17 years Mean: 11.2 (9.5 12.6) Mean: 11.0 (9.7 12.8) Mean: 11.0 (9.8 13.0) Mean: 11.3 (9.9 13.4) Mean: 11.7 (10.0 14.6) Mean: 11.8 (10.0 - 14.1) Pediatric Reference ranges were obtained from a study by makenna Chase al. prepared from 1437 samples obtained at 7 different centers using the same coagulation reagent and instrumentation as [facility]. Currently there are no coagulation studies available [...] Barry MD Transcribed by: LESLEY Technologist: SOFIA Normal [facility] CT Spine Cervical w/o Contra [...] Barry MD Transcribed by: LESLEY Technologist: SOFIA Normal [facility] Capillary Glucose POCon 03-16 Glucose [Mass/Vol] 88 mg/dL Normal 55-99 [facility] Comment on above: Result Comment: Jose matos RN/ Performed By: #### 2 [id number] #### [facility] [address] [place] [address] Consent for Treatmenton 03-16 Consent for Treatment [id number] #1.00TIFF Normal [facility] ED Clinical Summaryon 2022 ED Clinical Summary [address] [address] ED Clinical Summary Person Information Name: AARON JJ[place] Age: 78 Years : 1945 Sex: Female Language: Beninese PCP: JEREMIAH REED MD Marital Status: Visit Id: Visit Reason: Altered mental status; AMS Speciality: Acuity: 2 Enc Type: Observation Med Service: Emergency Arrival: 04/12/2023 12:15:14 Discharge: LOS: 000 04:45 Checkin: 04/12/2023 12:15:14 Checkout: 04/12/2023 17:00:36 Dispo Type: Admitted as IP to this [facility] EVENTS: Event Name Event Status Request [...] Labs Collected 04/12/2023 16:57:50 04/12/2023 16:57:50 [address] [address] [place] [id number] PHYS DOC NOTES: MEDICAL INFORMATION: Prescriptions Given: Medications to Continue with No Changes Other Medications acetaminophen-oxycod one (acetaminophen-oxyco done 325 mg-2.5 mg oral tablet) 1 Tablets [...] vein thrombosis (DVT) prophylaxis; Depression, unspecified Normal [facility] ED Patient Education Noteon 04-12-2023 ED Patient Education Note Normal [facility] ED Patient Summaryon 023 ED Patient Summary [place] [address] Patient Discharge Instructions Person Information Name: AARON JJ Age: 78 Years Arrival Date: 04/12/2023 12:15:14 Discharge Diagnosis: 1:AMS (altered mental status); 2:Elevated serum creatinine; 3:HTN (hypertension); 4:Anxiety and depression; 5:Peripheral neuropathy; 6:Chronic GERD; 7:OAB (overactive bladder); 8:Obesity; 9:On deep vein thrombosis (DVT) prophylaxis; Depression, unspecified Primary Care Physician: JEREMIAH REED MD Provider Information Primary Provider: Abran Holguin DO [place] Historian:None The exam and treatment you received in the Emergency Department were for an urgent problem and are not intended as complete care. It is important that you follow up with a doctor, nurse practitioner, or physician?s certified pharmacist assistant for ongoing care. If your symptoms [...] opioids can be used to help relieve soytowsy-va-dxsuzn pain and are often prescribed following a [...] guidance from the Food and Drug Administration (www.fda.gov/Drugs/R esourcesForYou). ? Visit www.cdc.gov/drugover dose to learn about the risks of opioids abuse and overdose. ? If you believe you may be struggling with addiction, tell your health care tech and ask for guidance or (more content not included)... Normal [facility] Ethanolon 04-12-2023 Ethanol [Mass/Vol] mg/dL Normal <=7 [facility] Comment on above: Performed By: #### 2 866056 ####[facility] [address] [place] [address] Folateon 04-12-2023 Folate [Mass/Vol] ng/mL Normal >=6.7 [facility] Comment on above: Performed By: #### 1 3356555, 1720053, 80855069, 6507675, 00490238, 840494179, 23257177, 3028863, 6692208, 4662705, 1813944, 6293267 ####[facility] [address] [place] [address] HEMATOLOGYOrdered By: SYSTEM SYSTEM on 04-12-2023 Basophils/100 WBC (Bld) 0.4 % Normal 0.0 - 2.0 % [facility] HemeAutoSS Basophils/Leukocytes Auto (Bld) [Pure # fraction] 0.1 E9/L Normal 0.0 - 0.2 E9/L [facility] HemeAutoSS Eosinophils/100 WBC (Bld) 0.1 % Normal 0.0 - 8.0 % [facility] HemeAutoSS Eosinophils/Leukocytes Auto (Bld) [Pure # fraction] 0.0 E9/L Normal 0.0 - 0.5 E9/L [facility] HemeAutoSS Lymphocytes/100 WBC (Bld) 9.7 % Low 14.0 - 50.0 % [facility] HemeAutoSS Lymphocytes/Leukocytes Auto (Bld) [Pure # fraction] 1.5 E9/L Normal 1.0 - 4.0 E9/L [facility] HemeAutoSS Monocytes/100 WBC (Bld) 7.8 % Normal 4.0 - 14.0 % [facility] HemeAutoSS Monocytes/Leukocytes Auto (Bld) [Pure # fraction] 1.2 E9/L High 0.2 - 1.0 E9/L [facility] HemeAutoSS Neutrophils/100 WBC (Bld) 82.0 % High 36.0 - 75.0 % [facility] HemeAutoSS Neutrophils/Leukocytes Auto (Bld) [Pure # fraction] 12.4 E9/L High 2.0 - 7.5 E9/L [facility] HemeAutoSS HEMATOLOGYOrdered By: Mary Ellsworth on 04-12-2023 Erythrocyte distribution width (RBC) [Ratio] 15.3 % High 10.9 - 14.2 % [facility] HemeAutoSS Hematocrit (Bld) [Volume fraction] 44.4 % Normal 34.0 - 46.0 % [facility] HemeAutoSS Hemoglobin (Bld) [Mass/Vol] 14.0 g/dL Normal 12.0 - 16.0 gm/dL [facility] HemeAutoSS MCH (RBC) [Entitic mass] 28.5 pg Normal 27.0 - 34.0 pg [facility] HemeAutoSS MCHC (RBC) [Mass/Vol] 31.6 g/dL Normal 31.4 - 36.0 gm/dL [facility] HemeAutoSS MCV (RBC) [Entitic vol] 89.9 fL Normal 80.0 - 100.0 fL [facility] HemeAutoSS Platelet mean volume (Bld) [Entitic vol] 9.8 fL Normal 6.4 - 10.8 fL [facility] HemeAutoSS Platelets (Bld) [#/Vol] 285.0 E9/L Normal 150. 0 - 500.0 E9/L [facility] HemeAutoSS RBC (Bld) [#/Vol] 4.9 E12/L Normal 4.3 - 5.9 E12/L [facility] HemeAutoSS WBC corrected for nucl RBC Auto (Bld) [#/Vol] 15.1 E9/L High 4.0 - 11.0 E9/L [facility] HemeAutoSS Hep Func Panelon 04-12-2023 Albumin [Mass/Vol] 4.4 g/dL Normal 3.3-5.0 [facility] Comment on above: Performed By: #### 1 8827168, 8241438, 04291271, 8043578, 13459785, 108551593, 79115481, 0562168, 9861005, 1216527, 2337896, 5869408 ####[facility] [address] [place] [address] Albumin/Globulin (S) [Mass conc ratio] 1.3 Normal 1.1-2.2 [facility] Comment on above: Performed By: #### 1 0633036, 2882739, 08486102, 5480110, 63552347, 551369774, 27036687, 6351799, 4949054, 9750884, 7419180, 9099006 ####[facility] [address] [place] [address] ALP [Catalytic activity/Vol] 78 Int._Unit/L Normal 21-98 [facility] Comment on above: Performed By: #### 1 9579303, 3734089, 62272225, 7261573, 29846014, 131591058, 20985138, 7506099, 6315980, 3500014, 9560561, 1674042 ####[facility] [address] [place] [address] ALT No additional P-5'-P [Catalytic activity/Vol] 22 Int._Unit/L Normal 6-46 [facility] Comment on above: Performed By: #### 1 5071308, 9662952, 32640150, 9177526, 01513654, 005402877, 72914610, 0674404, 1352698, 0106410, 7792612, 3623020 ####[facility] [address] [place] [address] AST [Catalytic activity/Vol] 25 Int._Unit/L Normal 5-43 [facility] Comment on above: Performed By: #### 1 0525311, 9861169, 47567183, 4937183, 35789712, 006681426, 64722420, 8773259, 4385884, 4149225, 1259619, 9798296 ####[facility] [address] [place] 4338757 Bilirubin [Mass/Vol] 0.7 mg/dL Normal 0.0-1.1 [facility] Comment on above: Performed By: #### 1 4177441, 3692684, 76211375, 8710598, 17074832, 837642251, 47673305, 6022557, 4376527, 3709100, 4167299, 7836989 ####[facility] [address] [place] 4338757 Bilirubin.direct [Mass/Vol] 0.1 mg/dL Normal 0.1-0.4 [facility] Comment on above: Performed By: #### 1 4196840, 7630832, 61534208, 3784788, 49848473, 427495094, 02755476, 5772828, 1754611, 0797641, 3107509, 2540131 ####[facility] [address] [place] [address] Bilirubin.indirect [Mass or moles/Vol] 0.6 mg/dL Normal 0.1-0.9 [facility] Comment on above: Performed By: #### 1 0289530, 6226276, 30698647, 4691225, 47209549, 665798246, 90189737, 7948761, 8822913, 9737241, 4158901, 6131155 ####[facility] [address] [place] [address] Globulin (S) [Mass/Vol] 3.3 g/dL Normal 1.4-4.0 [facility] Comment on above: Performed By: #### 1 2728940, 9671894, 85409885, 1567067, 93074755, 375757806, 08933026, 4976729, 5707128, 6844639, 0212049, 6240840 ####[facility] [address] [place] [address] Protein [Mass/Vol] 7.7 g/dL Normal 6.0-7.8 [facility] Comment on above: Performed By: #### 1 0499729, 3292519, 84010479, 4872577, 23808145, 787529368, 81154000, 4597473, 7005343, 4959521, 4255332, 3294150 ####[facility] [address] [place] [address] WgxV1cej 04-12-2023 HbA1c (Bld) [Mass fraction] 5.9 % Normal <=5.9 [facility] Comment on above: Performed By: #### 1 9604845, 8406230, 45875138, 8572614, 33000815, 730316002, 50044674, 6682125, 9911758, 3667397, 0102245, 8471065 ####[facility] [address] [place] [address] Magnesiumon 04-12-2023 Magnesium [Mass/Vol] 2.0 mg/dL Normal 1.3-2.4 [facility] Comment on above: Performed By: #### 1 3775810, 5272207, 43170107, 6952899, 67515547, 503358459, 23825294, 3928171, 0707510, 2309018, 6548763, 5294177 ####[facility] [address] [place] [address] Monitor Recordon 04-12-2023 Monitor Record [id number] 24#1.00TIFF Normal [facility] PT & PTTon 04-12-2023 aPTT Coag (PPP) [Time] 29.5 second(s) Normal 25.1-36.5 [facility] Comment on above: Result Comment: [...] the same coagulation reagent and instrumentation as [facility]. Currently there are no coagulation studies available worldwide for children to 14 days, and no normal ranges. Heparin therapeutic range (represented by Anti-Factor Xa activity of 0.2 - 0.4 U/mL) corresponds to PTT of 56.6 - 109.0 sec. Performed By: #### 1 6739093, 4136721, 16881699, 2753136, 46020418, 479560947, 24655284, 1134891, 9814165, 0227121, 4335828, 2385460 ####[facility] [address] [place] [address] INR Coag (PPP) [Relative time] 0.9 {INR} Invalid Interpretation Code [facility] Comment on above: Result Comment: INR results are specifically intended to assess patients stabilized on long-term Anticoagulation therapy suggested INR?s ?Less Intensive Anticoagulation? 2.0 ? 3.0 Conventional Range 3.0 ? 4.5 Performed By: #### 1 4057382, 3095642, 89886508, 5329404, 89584936, 445048219, 68538501, 5046973, 4067313, 5007426, 4323798, 2287317 ####[facility] [address] [place] [address] PT Coag (PPP) [Time] 10.4 second(s) Normal 9.4-12.5 [facility] Comment on above: Result Comment: [...] the same coagulation reagent and instrumentation as [facility]. Currently there are no coagulation studies available worldwide for children to 14 days, and no normal ranges. Performed By: #### 1 8934294, 5704666, 13402379, 6394418, 85131118, 482772356, 22621566, 3166553, 9601776, 8761831, 2763157, 2085766 ####[facility] [address] [place] [address] Pre-Arrival Noteon Pre-Arrival Note Pre-Arrival Summary Name: , Current Date: 04/12/2023 12:18:15 EST Gender: Female Date of : Age: 88 Pre-Arrival Type: EMS ETA: 04/12/2023 12:29:00 EST Primary Care Physician: Presenting Problem: altered mental status Pre-Arrival User: Brenda Miller RN Referring Source: Location: Completion Date/Time: 04/12/2023 11:59:00 [facility] Emergency Department Pre-Hospital Report Form Vital Signs: Pre-Hospital Report: Treatment in Route: Response to Treatment: Misc. Issues: Normal [facility] RAD - MRI Screening Formon 1 06-12-2022 RAD - MRI Screening Form [id number] 7#1.00TIFF Normal [facility] TSH With T4fr Reflexon 04-12 TSH Qn 0.52 m[IU]/L Normal 0.34-5.60 [facility] Comment on above: Performed By: #### 1 2521283, 3503394, 54693731, 3127971, 50211137, 219198287, 54496877, 1248047, 7792605, 5736821, 2173610, 5836865 ####[facility] [address] [place] [address] Troponin 0 Hr.on 04-12-2023 Troponin I.cardiac [Mass/Vol] 11.90 pg/mL Normal 10.10-27.10 [facility] Comment on above: Order Comment: tez LINTON RN is drawing labs and sending kig603 04/12/2023 12:26:28 EST Result Comment: The 95% CI (Confidence Interval) PPV (Positive Predictive Value) for myocardial infarction in females is 38 pg/mL, in males 51 pg/mL. The results should be used in conjunction with clinical conditions of myocardial infarction. (Access High Sensitivity Troponin I Instructions For Use, [employer], December 2017) Performed By: #### 1 2899654, 8511859, 80882502, 2178682, 69848498, 229890649, 74418321, 6140338, 9998716, 4558839, 6904117, 3137379 ####[facility] [address] [place] [address] U Drug Screenon 04-12-2023 Benzodiazepines Ql (U) Positive Abnormal Negative [facility] Comment on above: Result Comment: Crit ical Result UD_BENZ:POS Called to ABRAN HOLGUIN AT ER by URSULA LOZANO And Read Back For Confirmation at: 04/12/2023 15:35:32\Unconfirmed by alternate method\Results verified by repeat analysis\No confirmation requested by Physican Negative Cutoff: <200 ng/mL Performed By: #### 2 410771 #### [facility] [address] [place] [address] Amphetamines Screen method >1000 ng/mL Ql (U) Negative Normal Negative [facility] Comment on above: Result Comment: Nega tive Cutoff: <1000 ng/mL Performed By: #### 2 147345 #### [facility] [address] [place] [address] Barbiturates Screen Ql (U) Negative Normal Negative [facility] Comment on above: Result Comment: Nega tive Cutoff: <200 ng/mL Performed By: #### 2 975883 #### [facility] [address] [place] [address] Cocaine Ql (U) Negative Normal Negative [facility] Comment on above: Result Comment: Nega tive Cutoff: <300 ng/mL Performed By: #### 2 316057 #### [facility] [address] [place] [address] Opiates Screen Ql (U) Negative Normal Negative [facility] Comment on above: Result Comment: Nega tive Cutoff: <300 ng/mL Performed By: #### 2 796164 #### [facility] [address] [place] [address] Phencyclidine Screen method >25 ng/mL Ql (U) Negative Normal Negative [facility] Comment on above: Result Comment: Nega tive Cutoff: <25 ng/mL These drug screen results are to be used for medical (i.e., treatment) purposes only. Unconfirmed drug screening results must not be used for non-medical purposes (e.g., employment testing, legal testing). Performed By: #### 2 645852 #### [facility] [address] [place] [address] Tetrahydrocannabinol Screen method >50 ng/mL Ql (U) Negative Normal Negative [facility] Comment on above: Result Comment: Nega tive Cutoff: <50 ng/mL Performed By: #### 2 604058 #### [facility] [address] [place] [address] UA With Cult Reflexon 2022 Bacteria LM Ql (Urine sed) TRACE Normal Trace [facility] Comment on above: Performed By: #### 1 5170432 ####[facility] [address] [place] [address] Bilirubin Ql (U) Negative Normal Negative [facility] Comment on above: Performed By: #### 1 8047581 ####[address] [address] [place] [address] Clarity (U) CLEAR Normal Clear [facility] Comment on above: Performed By: #### 1 3784542 ####[address] [address] Color (U) YELLOW Normal Yellow [facility] Comment on above: Performed By: #### 1 6674503 ####[address] [address] Epithelial cells.squamous LM.HPF (Urine sed) [#/Area] 0-2 Normal 0-2 [facility] Comment on above: Performed By: #### 1 9218084 ####[address] [address] Glucose Test strip (U) [Mass/Vol] Negative Normal Negative [facility] Comment on above: Performed By: #### 1 2797629 ####[address] [address] Hemoglobin Ql (U) Negative Normal Negative [facility] Comment on above: Performed By: #### 1 6505430 ####[facility] [address] [place] [address] Ketones (U) [Mass/Vol] TRACE Abnormal Negative [facility] Comment on above: Performed By: #### 1 6440166 ####[facility] [address] [place] [address] [place].plasma/[place]. RBC (Bld) [Mass ratio] 0-3 Normal 0-3 [facility] Comment on above: Performed By: #### 1 3933139 ####[facility] [address] [place] [address] Mucus Ql (Urine sed) TRACE Normal [facility] Comment on above: Performed By: #### 1 4070204 ####[facility] [address] [place] [address] Nitrite Ql (U) Negative Normal Negative [facility] Comment on above: Performed By: #### 1 6836714 ####[facility] [address] [place] [address] pH (U) 5.0 [pH] Invalid Interpretation Code 5.0-9.0 [facility] Comment on above: Performed By: #### 1 8589477 ####[facility] [address] [place] [address] Protein (U) [Mass/Vol] TRACE Abnormal Negative [facility] Comment on above: Performed By: #### 1 8282172 ####[address] [address] Specific gravity (U) [Rel density] >=1.030 Invalid Interpretation Code 1.005-1.030 [facility] Comment on above: Performed By: #### 1 8098016 ####[facility] [address] [place] [address] Type of Urine collection method Catheter Normal [facility] Comment on above: Performed By: #### 1 3272170 ####[address] [address] Urobilinogen Qn (U) 0.2 {Nevaeh'U}/dL Normal 0.0-1.0 [facility] Comment on above: Performed By: #### 1 5643436 ####[facility] [address] [place] [address] WBC Auto Ql (U) Negative Normal Negative [facility] Comment on above: Performed By: #### 1 3863444 ####[facility] [address] [place] [address] WBC casts LM.LPF (Urine sed) [#/Area] 0-3 Normal [facility] Comment on above: Performed By: #### 1 1371378 ####[address] [place] [address] WBC LM.HPF (Urine sed) [#/Area] 0-5 Normal 0-5 [facility] Comment on above: Performed By: #### 1 9925669 ####[facility] [address] [place] [address] URINALYSISOrdered By: Bonny Workman on 04-12-2023 Bacteria [...] [#/Area] 0-2 /HPF Normal 0-2/HPF [facility] UA Aut o SS Glucose Test strip (U) [Mass/Vol] Negative (04/12/23 2:32 PM) Normal Negative [facility] UA Auto SS Hemoglobin Ql (U) Negative (04/12/23 2:32 PM) Normal Negative [facility] UA Auto SS Ketones (U) [Mass/Vol] Trace *ABN* (04/12/23 2:32 PM) Invalid Interpretation Code Negative [facility] UA Auto SS [place].plasma/[place]. RBC (Bld) [Mass ratio] 0-3 /HPF Normal 0-3/HPF [facility] UA A uto SS Mucus Ql (Urine sed) Trace (04/12/23 [...] Spec Desc Catheter (04/12/23 2:32 PM) Normal [facility] UA Auto SS Urobilinogen Qn (U) 0.8091958 {Nevaeh'U}/dL Normal 0.0 - 1.0 EU/dL [facility] UA Auto SS WBC Auto Ql (U) Negative (04/12/23 2:32 PM) Normal Negative [facility] UA Auto SS WBC casts LM.LPF (Urine sed) [#/Area] 0-3 (04/12/23 2:32 PM) Normal [facility] UA Auto SS WBC LM.HPF (Urine sed) [#/Area] 0-5 /HPF Normal 0-5/HPF [facility] UA Auto SS Vit B12on 04-12-2023 Cobalamin (Vitamin B12) [Mass/Vol] 1018 pg/mL Normal 50-1500 [facility] Comment on above: Performed By: #### 1 8323013, 9740076, 00620638, 2810465, 64043117, 070902571, 29686306, 3560015, 0764196, 6129135, 2377735, 9659747 ####[facility] [address] [place] [address] XR Chest Single Viewon 04-12 XR Chest [...] mGy = na DAP = na Normal [facility] eGFRon 04-12-2023 GFR/1.73 sq M.predicted among non-blacks MDRD (S/P/Bld) [Vol rate/Area] 29 mL/min/1.73 m2 Low >=59 [facility] Comment on above: Order Comment: Order added by Discern Expert. Result Comment: Manager Requirements sally kidney disease could be indicated at eGFR's of less than 60 mL/min/1.73m2. Kidney failure is indicated at less than 15 mL/min/1.73m2. Performed By: #### 1 2329813, 6005621, 00266069, 7534378, 12191200, 495581836, 43593573, 5194183, 6087130, 8816026, 0642162, 2531683 ####[facility] [address] [place] [address] XR CSPINE OBL FLEX_EXTon XR CSPINE OBL [...] Multilevel cervical spondylosis. Electronically authenticated by: Serena OSORIO Date: 2022-09-02 00:[address] [facility] MRI SHOULDER RT WO CONon MRI [...] by: EHSAN MILLER Date: 2022-08-22 09:[address] [facility] XR SHOULDER RT 2V or >on XR SHOULDER RT 2V or > EXAM: Right shoulder. HISTORY: . Right rotator cuff strain . COMPARISON: None. TECHNIQUE: 3 views FINDINGS: No fracture or dislocation of the right shoulder is noted. Small spurs are noted involving the humeral head. Early arthritic changes of the right acromioclavicular joint are noted. Surrounding soft tissues are unremarkable. 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 Electronically authenticated by: BRENT MALDONADO Date: 2022-08-10 22:[address] [facility] Ambulatory Visit Summaryon 0 06-21-2022 Ambulatory Visit Summary KYLE JJRichy Ruby :1945 Visit Date:06/21/2022 Ambulatory Visit Instructions Your Diagnosis OAB (overactive bladder) Urethral stricture Tests Performed Urnls Dip Stick Auto w/o Microscopy POC 40[address] Your Care Team Attending Physician - MIAH ROE, BRENDA Poole Primary Care Physician - JEREMIAH REED MD This Is Your Medications List solifenacin (Vesicare 10 mg Tab) Contact prescribing physician if questions or concerns acetaminophen-oxycod one (acetaminophen-oxyco done 325 mg-2.5 mg oral tablet) amlodipine (amLODIPine 2.5 mg Tab) baclofen (baclofen 10 mg Tab) busPIRone (busPIRone 10 mg Tab) calcium citrate (calcium (as calcium citrate) 200 mg oral tablet) gabapentin (gabapentin 600 mg Tab) glucosamine melatonin multivitamin with minerals (Ocuvite) nortriptyline (nortriptyline 25 mg Cap) omeprazole (omeprazole 40 mg Cap-DR) [Image Removed: STOP]Stop taking these medications tolterodine (tolterodine 2 mg Tab) Procedures Performed Cystourethroscopy with dilation of urethral stricture (06/16/2016), Appendectomy, Biopsy of breast, Hysterectomy. Discharge Vitals Height 165 cm Height 65 in Weight 87 kg Weight 191.4 lb BMI 31.96 What to do next Scheduled Follow-Up Appointments Sunday 2:30 PM EST With: BRENDA MARIN PA-C Where: [facility] Patient Educationon 06-21-19 Patient Education Obstetrics and Gynecology Overactive Bladder, Adult Overactive bladder refers to [...] Take ove (more content not included)... Normal [facility] Urology Office/Clinic Noteon 06-21-2022 Urology [...] Contact Information MIAH ROE, BRENDA Poole, URL [address] [place] [address] Additional Instructions: f/u 1 yr Patient Education [...] (06/16/2016), Appendectomy, Biopsy of breast, Hysterectomy. Medications acetaminophen-oxycod one 325 mg-2.5 mg oral tablet, 1 tab(s), [...] Bilirubin Urine (more content not included)... Normal [facility] Comment on above: Result Comment: Elec tronically Signed By: BRENDA MARIN PA-C\.br\Date and Time Signed: 06/21/22 15:23 EST\.br\Electronically Co-Signed By: Alma Greco\.br\Date and Time Co-Signed: 06/21/22 15:[address] CHEST WO CONon 06-12-2022 CT CHEST WO CON EXAMINATION: CT CHEST WO CON HISTORY: Pneumonia ; chronic shortness [...] EHSAN MILLER Date: 2022-06-12 16:56 Normal [facility] VIT D 1 25 DIHYDROXYon 04-24 Calcitriol(1,25 di-OH Vit D) 91.0 pg/mL Critically high 24.8-81.5 [facility] Comment on above: Performed By: #### V [id number] #### [facility] [address] [place] [address] Dr. Helio Cee CULTURE URINEon 04-23-2022 CULTURE URINE Isolate 1 Escherichia coli >100,000 cfu/mL of ORGANISM 1 Escherichia coli ANTIBIOTIC M.I.C RX STATUS Ampicillin <=2 S F Ampicillin/Sulbactam <=2 S F Piperacillin/Tazobac dc <=4 S F Cefazolin <=4 S F Ceftazidime <=1 S F Ceftriaxone <=1 S F Ertapenem <=0.5 S F Imipenem <=0.25 S F Amikacin <=2 S F Gentamicin <=1 S F Tobramycin <=1 S F Ciprofloxacin <=0.25 S F Levofloxacin <=0.12 S F Nitrofurantoin <=16 S F Trimethoprim/Sulfame thoxazole <=[address] [facility] Comment on above: Performed By: #### U RCX #### [facility] [address] [place] [address] Dr. Helio Cee CBC AUTO DIFFon 04-21-2022 BASO # 0.0 103/ul Normal 0.0-0.1 [facility] Comment on above: Performed By: #### E RUR #### [facility] [address] [place] [address] Dr. Helio Cee Basophils/100 WBC (Bld) 0.4 % Normal 0.2-2.0 [facility] Comment on above: Performed By: #### E RUR #### [facility] [address] [place] [address] Dr. Helio Cee EO # 0.4 103/ul Normal 0.0-0.7 [facility] Comment on above: Performed By: #### E RUR #### [facility] [address] [place] [address] Dr. Helio Cee Eosinophils/100 WBC (Bld) 4.0 % Normal 0.9-7.0 [facility] Comment on above: Performed By: #### E RUR #### [facility] [address] [place] [address] Dr. Helio Cee Erythrocyte distribution width (RBC) [Ratio] 15.2 % Critically high 11.0-15.0 [facility] Comment on above: Performed By: #### E RUR #### [facility] [address] [address] [address] Helio Cee Hematocrit (Bld) [Volume fraction] 41.0 % Normal 36.0-48.0 [facility] Comment on above: Performed By: #### E RUR #### [facility] [address] [address] [address] Helio Cee Hemoglobin (Bld) [Mass/Vol] 12.9 g/dL Normal 12.0-16.0 [facility] Comment on above: Performed By: #### E RUR #### [facility] [address] [address] [address] Helio Cee IG # 0.04 10e3/ul Critically high 0.00-0.03 [facility] Comment on above: Performed By: #### E RUR #### [facility] [address] [place] [address] Dr. Helio Cee IG % 0.4 % Normal 0.0-0.5 [facility] Comment on above: Performed By: #### E RUR #### [facility] [address] [address] [address] Helio Cee LYMPH # 1.1 103/ul Critically low 1.2-3.8 [facility] Comment on above: Performed By: #### E RUR #### [facility] [address] [place] [address] Dr. Helio Cee Lymphocytes/100 WBC (Bld) 11.9 % Critically low 20.5-60.0 [facility] Comment on above: Performed By: #### E RUR #### [facility] [address] [address] [address] Helio Cee MANUAL DIFF REQ NO Normal [facility] Comment on above: Performed By: #### E RUR #### [facility] [address] [place] [address] Dr. Helio Cee MCH (RBC) [Entitic mass] 29.0 pg Normal 26.7-34.0 [facility] Comment on above: Performed By: #### E RUR #### [facility] [address] [address] [address] Helio Cee MCHC (RBC) [Mass/Vol] 31.5 g/dL Normal 29.9-35.2 [facility] Comment on above: Performed By: #### E RUR #### [facility] [address] [address] [address] Helio Cee MCV (RBC) [Entitic vol] 92.1 fL Normal 81.0-99.0 [facility] Comment on above: Performed By: #### E RUR #### [facility] [address] [address] [address] Helio Cee MONO # 0.4 103/ul Normal 0.3-0.8 [facility] Comment on above: Performed By: #### E RUR #### [facility] [address] [place] [address] Dr. Helio Cee Monocytes/100 WBC (Bld) 4.4 % Normal 1.7-12.0 [facility] Comment on above: Performed By: #### E RUR #### [facility] [address] [address] [address] Helio Cee NEUT # 7.3 103/ul Critically high 1.4-6.5 [facility] Comment on above: Performed By: #### E RUR #### [facility] [address] [address] [address] Helio Cee Neutrophils/100 WBC (Bld) 78.9 % Critically high 43.0-75.0 [facility] Comment on above: Performed By: #### E RUR #### [facility] [address] [address] [address] Helio Cee Platelet mean volume (Bld) [Entitic vol] 10.6 fL Normal 9.5-13.5 [facility] Comment on above: Performed By: #### E RUR #### [facility] [address] [address] [address] Helio Cee PLT 269 103/ul Normal 150-450 [facility] Comment on above: Performed By: #### E RUR #### [facility] [address] [address] [address] Helio Cee RBC 4.45 106/ul Normal 4.20-5.40 [facility] Comment on above: Performed By: #### E RUR #### [facility] [address] [place], [place] [address] Dr. Helio Cee WBC 9.2 103/ul Normal 4.0-11.0 [facility] Comment on above: Performed By: #### E RUR #### [facility] [address] [address] [address] Helio Cee LIPID PROFILEon 04-21-2022 CHOL-HDL RATIO NORM SEE BELOW Normal [facility] Comment on above: Result Comment: 3.3 - 4.4 LOW RISK 4.4 - 7.1 AVERAGE RISK 7.1 - 11.0 MODERATE RISK >11.0 HIGH RISK Performed By: #### T CAITLIN, LIPID, CMP ####[facility] [address] [address]Dr. Helio Cee Cholesterol [Mass/Vol] 146 mg/dL Normal <=200 Th [facility] Comment on above: Performed By: #### T CAITLIN, LIPID, CMP ####[facility] [address] [place] [address]Dr. Helio Cee Cholesterol in HDL [Mass/Vol] 63 mg/dL Critically high 40-60 [facility] Comment on above: Performed By: #### T CAITLIN, LIPID, CMP ####[facility] [address] [place] [id number]. Helio Cee Cholesterol in LDL [Mass/Vol] 66.6 mg/dL Normal [facility] Comment on above: Performed By: #### T CAITLIN, LIPID, CMP ####[facility] [address] [place] [address]Dr. Helio Cee Cholesterol.total/Lisa sterol in HDL [Mass ratio] 2.3 {ratio} Normal [facility] Comment on above: Performed By: #### T SH, LIPID, CMP ####[facility] [address] [place] [address]Dr. Helio Cee HDL NORMAL > or = 60 mg/dl - LOW CARDIOVASCULAR RISK <40 mg/dl - HIGH CARDIOVASCULAR RISK Normal [facility] Comment on above: Performed By: #### T CAITLIN, LIPID, CMP ####[facility] [address] [place] [address]Dr. Helio Cee LDL CALC NORMAL SEE BELOW Normal [facility] Comment on above: Result Comment: <100 mg/dl OPTIMAL 100 - 129 mg/dl NEAR OR ABOVE OPTIMAL 130 - 159 mg/dl BORDERLINE HIGH 160 - 189 mg/dl HIGH >190 mg/dl VERY HIGH Performed By: #### T CAITLIN, LIPID, CMP ####[facility] [address] [place] [address]Dr. Helio Cee Triglyceride [Mass/Vol] 82 mg/dL Normal <=150 [facility] Comment on above: Performed By: #### T CAITLIN, LIPID, CMP ####[facility] [address] [place] [address]Dr. Helio Cee VLDL CALC 16.4 mg/dL Normal [facility] Comment on above: Performed By: #### T CAITLIN, LIPID, CMP ####[facility] [address]ch[address] [place] [address]Dr. Helio Cee PROF 14(COMP METB)on 022 Albumin [Mass/Vol] 3.5 g/dL Normal 3.4-5.0 [facility] Comment on above: Performed By: #### T CAITLIN, LIPID, CMP ####[facility] [address] [place] [address]Dr. Helio Cee Albumin/Globulin [Mass ratio] 1.0 {ratio} Normal [facility] Comment on above: Performed By: #### T CAITLIN, LIPID, CMP ####[facility] [address] [place] [address]Dr. Helio Cee ALP [Catalytic activity/Vol] 98 U/L Normal 46-116 [facility] Comment on above: Performed By: #### T CAITLIN, LIPID, CMP ####[facility] [address] [place] [address]Dr. Helio Cee ALT [Catalytic activity/Vol] 23 U/L Normal 14-59 [facility] Comment on above: Performed By: #### T CAITLIN, LIPID, CMP ####[facility] [address] [place] [address]Dr. Helio Cee Anion gap [Moles/Vol] 12.2 mmol/L Normal [facility] Comment on above: Performed By: #### T CAITLIN, LIPID, CMP ####[facility] [address] [place], [place] [address]Dr. Helio Cee AST [Catalytic activity/Vol] 15 U/L Normal 15-37 [facility] Comment on above: Performed By: #### T CAITLIN, LIPID, CMP ####[facility] [address] [place], [place] [address]Dr. Helio Cee Bilirubin [Mass/Vol] 0.5 mg/dL Normal 0.2-1.0 [facility] Comment on above: Performed By: #### T CAITLIN, LIPID, CMP ####[facility] [address] [place], [place] [address]Dr. Helio Cee Calcium [Mass/Vol] 9.0 mg/dL Normal 8.5-10.1 [facility] Comment on above: Performed By: #### T CAITLIN, LIPID, CMP ####[facility] [address] [place], [place] [address]Dr. Helio Cee Chloride [Moles/Vol] 109 mmol/L Critically high 98-107 [facility] Comment on above: Performed By: #### T CAITLIN, LIPID, CMP ####[facility] [address] [place], [place] [address]Dr. Helio Cee CO2 [Moles/Vol] 26.5 mmol/L Normal 21.0-32.0 [facility] Comment on above: Performed By: #### T CAITLIN, LIPID, CMP ####[facility] [address]ub[address] [place], [place] [address]Dr. Helio Cee Creatinine [Mass/Vol] 1.22 mg/dL Critically high 0.55-1.02 [facility] Comment on above: Performed By: #### T SH, LIPID, CMP ####[facility] [address] [place] [address]Dr. Helio Cee EGFR-AF MALDIVIAN 52 mL/min/1.73m2 Critically low >=60 [facility] Comment on above: Performed By: #### T SH, LIPID, CMP ####[facility] [address] [place] [address]Dr. Helio Cee EGFR-NON AF MALDIVIAN 43 mL/min/1.73m2 Critically low >=60 [facility] Comment on above: Performed By: #### T SH, LIPID, CMP ####[facility] [address]rjj[address] [place] [address]Dr. Helio Cee Globulin (S) [Mass/Vol] 3.4 g/dL Normal [facility] Comment on above: Performed By: #### T SH, LIPID, CMP ####[facility] [address] [place], [place] [address]Dr. Helio Cee Glucose [Mass/Vol] 103 mg/dL Normal 74-106 [facility] Comment on above: Performed By: #### T SH, LIPID, CMP ####[facility] [address] [place], [place] [address]Dr. Helio Cee Potassium [Moles/Vol] 4.7 mmol/L Normal 3.5-5.1 [facility] Comment on above: Performed By: #### T SH, LIPID, CMP ####[facility] [address] [place], [place] [address]Dr. Helio Cee Protein [Mass/Vol] 6.9 g/dL Normal 6.4-8.2 [facility] Comment on above: Performed By: #### T SH, LIPID, CMP ####[facility] [address] [place], [place] [address]Dr. Helio Cee Sodium [Moles/Vol] 143 mmol/L Normal 136-145 [facility] Comment on above: Performed By: #### T SH, LIPID, CMP ####[facility] [address] [place], [place] [address]Dr. Helio Cee Urea nitrogen [Mass/Vol] 22.0 mg/dL Critically high 7.0-18.0 [facility] Comment on above: Performed By: #### T SH, LIPID, CMP ####[facility] [address] [place] [address]Dr. Helio Cee Urea nitrogen/Creatinine [Mass ratio] 18.0 mg/mg Normal [facility] Comment on above: Performed By: #### T SH, LIPID, CMP ####[facility] [address] [place] [address]Dr. Helio Cee TSHon 04-21-2022 TSH 0.592 uIU/mL Normal 0.358-3.740 [facility] Comment on above: Performed By: #### T CAITLIN, LIPID, CMP ####[facility] [address] [place], [place] [address]Dr. Helio Cee UA RANDOM W/MICROSCOPICon BACTERIA NONE SEEN Normal NONE SEEN [facility] Comment on above: Performed By: #### U AMIC ####[facility] [address] [place] [address]Dr. Helio Cee Bilirubin Ql (U) Negative Normal NEGATIVE [facility] Comment on above: Performed By: #### U AMIC ####[facility] [address] [place] [address]Dr. Helio Cee CAST NONE SEEN Normal NONE SEEN [facility] Comment on above: Performed By: #### U AMIC ####[facility] [address] [place] [address]Dr. Helio Cee Clarity (U) CLEAR Normal CLEAR [facility] Comment on above: Performed By: #### U AMIC ####[facility] [address] [place] [address]Dr. Helio Cee Color (U) DK. YELLOW Normal YELLOW [facility] Comment on above: Performed By: #### U AMIC ####[facility] [address] [place] [address]Dr. Helio Cee Crystals LM Nom (Urine sed) NONE SEEN Normal NONE SEEN [facility] Comment on above: Performed By: #### U AMIC ####[facility] [address] [place] [address]Dr. Helio Coleman Epithelial cells LM Ql (Urine sed) RARE Normal NONE SEEN /RARE [facility] Comment on above: Performed By: #### U AMIC ####[facility] [address] [place] [address]Dr. Helio Coleman Glucose Ql (U) Negative Normal NEGATIVE [facility] Comment on above: Performed By: #### U AMIC ####[facility] [address]xd[address] [place] [address]Dr. Helio Coleman Hemoglobin Ql (U) Negative Normal NEGATIVE [facility] Comment on above: Performed By: #### U AMIC ####[facility] [address] [place] [address]Dr. Helio Cee Ketones Ql (U) Negative Normal NEGATIVE [facility] Comment on above: Performed By: #### U AMIC ####[facility] [address] [place], [place] [address]Dr. Claudettemagan Cee LEUKOCYTES Negative Normal NEGATIVE [facility] Comment on above: Performed By: #### U AMIC ####[facility] [address] [place], [place] [address]Dr. Helio Cee MUCOUS TRACE Abnormal NONE SEEN [facility] Comment on above: Performed By: #### U AMIC ####[facility] [address] [place] [address]Dr. Helio Cee Nitrite Ql (U) Negative Normal NEGATIVE [facility] Comment on above: Performed By: #### U AMIC ####[facility] [address] [place] [address]Dr. Helio Cee pH (U) 5.5 [pH] Normal 5-9 [facility] Comment on above: Performed By: #### U AMIC ####[facility] [address]fu[address] [place] [address]Dr. Helio Cee RBC 0-2 Normal 0-2 [facility] Comment on above: Performed By: #### U AMIC ####[facility] [address] [place], [place] [address]Zy. Helio Cee SPEC GRAVITY >=1.030 Abnormal 1.005-<=1.02 5 [facility] Comment on above: Performed By: #### U AMIC ####[facility] [address] [place], [place] [address]Nv. Helio Cee UA PROTEIN TRACE Normal NEGATIVE/ TRACE [facility] Comment on above: Performed By: #### U AMIC ####[facility] [address] [place] [id number]. Helio Cee Urobilinogen Qn (U) 1.0 {Nevaeh'U}/dL Normal 0.2 - 1. 0 [facility] Comment on above: Performed By: #### U AMIC ####[facility] [address] [place] [id number]. Helio Cee WBC NONE SEEN Normal NONE SEEN [facility] Comment on above: Performed By: #### U AMIC ####[facility] [address] [place] [id number]. Helio Cee CT CHEST WO CONon 02-22-2022 CT CHEST WO CON EXAMINATION: CT CHEST WO CON HISTORY: Localized enlarged lymph nodes [...] EHSAN MILLER Date: 2022-02-22 16:51 Normal [facility] HEMOGLOBINon 02-22-2022 Hemoglobin (Bld) [Mass/Vol] 13.6 g/dL Normal 12.0-16.0 [facility] Comment on above: Performed By: #### V [id number] #### [facility] [address] [place] [address] Dr. Helio Cee XR TIB_FIB RT 2Von [...] BRENT LONG Date: 2022-01-07 21:52 Normal [facility] BNPon 11-22-2021 Natriuretic peptide B (Bld) [Mass/Vol] 1469.0 pg/mL Critically high <=900.0 [facility] Comment on above: Performed By: #### C VDTBH #### [facility] [address] [place] [address] Dr. Helio Cee CBC AUTO DIFFon 11-22-2021 BASO # 0.1 103/ul Normal 0.0-0.1 [facility] Comment on above: Performed By: #### E RUR #### [facility] [address] [place] [address] Dr. Helio Cee Basophils/100 WBC (Bld) 0.7 % Normal 0.2-2.0 [facility] Comment on above: Performed By: #### E RUR #### [facility] [address] [place] [address] Dr. Helio Cee EO # 0.2 103/ul Normal 0.0-0.7 [facility] Comment on above: Performed By: #### E RUR #### [facility] [address] [address] [address] Helio Cee Eosinophils/100 WBC (Bld) 1.9 % Normal 0.9-7.0 [facility] Comment on above: Performed By: #### E RUR #### [facility] [address] [place] [address] Dr. Helio Cee Erythrocyte distribution width (RBC) [Ratio] 14.3 % Normal 11.0-15.0 [facility] Comment on above: Performed By: #### E RUR #### [facility] [address] [place] [address] Dr. Helio Cee Hematocrit (Bld) [Volume fraction] 37.9 % Normal 36.0-48.0 [facility] Comment on above: Performed By: #### E RUR #### [facility] [address] [place] [address] Dr. Helio Cee Hemoglobin (Bld) [Mass/Vol] 12.0 g/dL Normal 12.0-16.0 [facility] Comment on above: Performed By: #### E RUR #### [facility] [address] [place] [address] Dr. Helio Cee IG # 0.10 10e3/ul Critically high 0.00-0.03 [facility] Comment on above: Performed By: #### E RUR #### [facility] [address] [place] [address] Dr. Helio Cee IG % 1.1 % Critically high 0.0-0.5 [facility] Comment on above: Performed By: #### E RUR #### [facility] [address] [place] [address] Dr. Helio Cee LYMPH # 0.9 103/ul Critically low 1.2-3.8 [facility] Comment on above: Performed By: #### E RUR #### [facility] [address] [place] [address] Dr. Helio Cee Lymphocytes/100 WBC (Bld) 10.1 % Critically low 20.5-60.0 [facility] Comment on above: Performed By: #### E RUR #### [facility] [address] [address] [address] Helio Cee MANUAL DIFF REQ NO Normal [facility] Comment on above: Performed By: #### E RUR #### [facility] [address] [address] [address] Helio Cee MCH (RBC) [Entitic mass] 29.8 pg Normal 26.7-34.0 [facility] Comment on above: Performed By: #### E RUR #### [facility] [address] [place] [address] Dr. Helio Cee MCHC (RBC) [Mass/Vol] 31.7 g/dL Normal 29.9-35.2 [facility] Comment on above: Performed By: #### E RUR #### [facility] [address] [place] [address] Dr. Helio Cee MCV (RBC) [Entitic vol] 94.0 fL Normal 81.0-99.0 [facility] Comment on above: Performed By: #### E RUR #### [facility] [address] [place] [address] Dr. Helio Cee MONO # 0.7 103/ul Normal 0.3-0.8 [facility] Comment on above: Performed By: #### E RUR #### [facility] [address] [place] [address] Dr. Helio Cee Monocytes/100 WBC (Bld) 7.8 % Normal 1.7-12.0 [facility] Comment on above: Performed By: #### E RUR #### [facility] [address] [place] [address] Dr. Helio Cee NEUT # 7.2 103/ul Critically high 1.4-6.5 [facility] Comment on above: Performed By: #### E RUR #### [facility] [address] [place] [address] Dr. Helio Cee Neutrophils/100 WBC (Bld) 78.4 % Critically high 43.0-75.0 [facility] Comment on above: Performed By: #### E RUR #### [facility] [address] [address] [address] Helio Cee Platelet mean volume (Bld) [Entitic vol] 10.6 fL Normal 9.5-13.5 [facility] Comment on above: Performed By: #### E RUR #### [facility] [address] [address] [address] Helio Cee PLT 278 103/ul Normal 150-450 [facility] Comment on above: Performed By: #### E RUR #### [facility] [address] [address] [address] Helio Cee RBC 4.03 106/ul Critically low 4.20-5.40 [facility] Comment on above: Performed By: #### E RUR #### [facility] [address] [address] [address] Helio Cee WBC 9.1 103/ul Normal 4.0-11.0 [facility] Comment on above: Performed By: #### E RUR #### [facility] [id number] Helio Cee CTA CHEST WO W [...] by: Jay BARAHONA Date: 2021-11-22 16:[address] [facility] CULTURE BLOODon 11-22-2021 Microscopic examination of blood, culture Culture Observations: NO GROWTH AT [address] [facility] Comment on above: Performed By: #### B [id number] ####[facility] [address] [place], [place] [address]ZwDr. Helio Cee Microscopic examination of blood, culture Culture Observations: NO GROWTH AT [address] [facility] Comment on above: Performed By: #### B [id number] #### [facility] [address] [place], [place] [address] Dr. Helio Cee Covid-19 PCR (CVDTB)on 11-11 SARS-CoV-2 (COVID-19) RNA KIMMY+probe Ql (Unsp spec) Not detected Normal NOT DETECTED [facility] Comment on above: Result Comment: When diagnostic [...] for this test is supported by the [place] of [employer] and Human Service's declaration that [...] used). Performed By: #### C VDTBH #### [facility] [address] [place] [address] Dr. Helio Cee LACTATE/LACTIC ACIDon 2021 Lactate [Moles/Vol] mmol/L Critically low 0.4-1.9 [facility] Comment on above: Performed By: #### L ACT ####[facility] [address] [place] [address]Dr. Helio Cee PROF 14(COMP METB)on 022 Albumin [Mass/Vol] 3.1 g/dL Critically low 3.4-5.0 [facility] Comment on above: Performed By: #### V [id number] #### [facility] [address] [place] [address] Dr. Helio Cee Albumin/Globulin [Mass ratio] 0.8 {ratio} Normal [facility] Comment on above: Performed By: #### V [id number] #### [facility] [address] [place] [address] Dr. Helio Cee ALP [Catalytic activity/Vol] 92 U/L Normal 46-116 [facility] Comment on above: Performed By: #### V [id number] #### [facility] [address] [place] [address] Dr. Helio Cee ALT [Catalytic activity/Vol] 23 U/L Normal 14-59 [facility] Comment on above: Performed By: #### V [id number] #### [facility] [address] [place] [address] Dr. Helio Cee Anion gap [Moles/Vol] 12.8 mmol/L Normal Th [facility] Comment on above: Performed By: #### V [id number] #### [facility] [address] [address] [address] Helio Cee AST [Catalytic activity/Vol] 16 U/L Normal 15-37 [facility] Comment on above: Performed By: #### V [id number] #### [facility] [address] [address] [address] Helio Cee Bilirubin [Mass/Vol] 0.6 mg/dL Normal 0.2-1.0 [facility] Comment on above: Performed By: #### V [id number] #### [facility] [address] [address] [address] Helio Cee Calcium [Mass/Vol] 9.5 mg/dL Normal 8.5-10.1 [facility] Comment on above: Performed By: #### V [id number] #### [facility] [address] [address] [address] Helio Cee Chloride [Moles/Vol] 106 mmol/L Normal 98-107 [facility] Comment on above: Performed By: #### V [id number] #### [facility] [address] [place] [address] Dr. Helio Cee CO2 [Moles/Vol] 25.1 mmol/L Normal 21.0-32.0 [facility] Comment on above: Performed By: #### V [id number] #### [facility] [address] [address] [address] Helio Cee Creatinine [Mass/Vol] 1.06 mg/dL Critically high 0.55-1.02 [facility] Comment on above: Performed By: #### V [id number] #### [facility] [address] [address] [address] Helio Cee EGFR-AF MALDIVIAN >60 Normal >=60 [facility] Comment on above: Performed By: #### V [id number] #### [facility] [address] [place] [address] Dr. Helio Cee EGFR-NON AF MALDIVIAN 51 mL/min/1.73m2 Critically low >=60 [facility] Comment on above: Performed By: #### V [id number] #### [facility] [address] [address] [address] Helio Cee Globulin (S) [Mass/Vol] 4.1 g/dL Normal T [facility] Comment on above: Performed By: #### V [id number] #### [facility] [address] [address] [address] Helio Cee Glucose [Mass/Vol] 99 mg/dL Normal 74-106 [facility] Comment on above: Performed By: #### V [id number] #### [facility] [address] [address] [address] Helio Cee Potassium [Moles/Vol] 3.9 mmol/L Normal 3.5-5.1 [facility] Comment on above: Performed By: #### V [id number] #### [facility] [address] [address] [address] Helio Cee Protein [Mass/Vol] 7.2 g/dL Normal 6.4-8.2 [facility] Comment on above: Performed By: #### V [id number] #### [facility] [address] [address] [address] Helio Cee Sodium [Moles/Vol] 140 mmol/L Normal 136-145 [facility] Comment on above: Performed By: #### V [id number] #### [facility] [address] [address] [address] Helio Cee Urea nitrogen [Mass/Vol] 15.0 mg/dL Normal 7.0-18.0 [facility] Comment on above: Performed By: #### V [id number] #### [facility] [address] [address] [address] Helio Cee Urea nitrogen/Creatinine [Mass ratio] 14.2 mg/mg Normal [facility] Comment on above: Performed By: #### V [id number] #### [facility] [address] [address] [address] Helio Cee TROPONIN, HIGH SENSITIVITYon 11-22-2021 HSTROP 11.6 pg/mL Normal 4.0-51.3 [facility] Comment on above: Result Comment: CUT- OFF POINTS HAVE BEEN ESTABLISHED BASED ON THE FOURTH UNIVERSAL DEFINITIONS OF MYOCARDIAL INFARCTION. THE UPPER REFERENCE LIMIT (URL) OF TROPONIN, DEFINED THE 99TH PERCENTILE OF cTnI DISTRIBUTION IN A REFERENCE POPULATION, HAS BEEN CONFIRMED THE DECISION THRESHOLD FOR [place] DIAGNOSIS. Performed By: #### V [id number] #### [facility] [address] [place] [address] Dr. Helio Cee XR CHEST 2 Von [...] by: ISAC CONNOR Date: 2021-11-22 14:[address] [facility] BNPon 11-21-2021 Natriuretic peptide B (Bld) [Mass/Vol] 953.0 pg/mL Critically high <=900.0 [facility] Comment on above: Performed By: #### E RUR #### [facility] [address] [place] [address] Dr. Helio Cee CBC AUTO DIFFon 11-21-2021 BASO # 0.0 103/ul Normal 0.0-0.1 [facility] Comment on above: Performed By: #### E RUR #### [facility] [address] [place] [address] Dr. Helio Cee Basophils/100 WBC (Bld) 0.4 % Normal 0.2-2.0 [facility] Comment on above: Performed By: #### E RUR #### [facility] [address] [place] [address] Dr. Helio Cee EO # 0.1 103/ul Normal 0.0-0.7 [facility] Comment on above: Performed By: #### E RUR #### [facility] [address] [address] [address] Helio Cee Eosinophils/100 WBC (Bld) 1.1 % Normal 0.9-7.0 [facility] Comment on above: Performed By: #### E RUR #### [facility] [address] [place] [address] Dr. Helio Cee Erythrocyte distribution width (RBC) [Ratio] 14.6 % Normal 11.0-15.0 [facility] Comment on above: Performed By: #### E RUR #### [facility] [address] [place] [address] Dr. Helio Cee Hematocrit (Bld) [Volume fraction] 35.2 % Critically low 36.0-48.0 [facility] Comment on above: Performed By: #### E RUR #### [facility] [address] [place] [address] Dr. Helio Cee Hemoglobin (Bld) [Mass/Vol] 10.9 g/dL Critically low 12.0-16.0 [facility] Comment on above: Performed By: #### E RUR #### [facility] [address] [place] [address] Dr. Helio Cee IG # 0.07 10e3/ul Critically high 0.00-0.03 [facility] Comment on above: Performed By: #### E RUR #### [facility] [address] [place] [address] Dr. Helio Cee IG % 0.7 % Critically high 0.0-0.5 [facility] Comment on above: Performed By: #### E RUR #### [facility] [address] [place] [address] Dr. Helio Cee LYMPH # 1.4 103/ul Normal 1.2-3.8 [facility] Comment on above: Performed By: #### E RUR #### [facility] [address] [place] [address] Dr. Helio Cee Lymphocytes/100 WBC (Bld) 13.3 % Critically low 20.5-60.0 [facility] Comment on above: Performed By: #### E RUR #### [facility] [address] [address] [address] Helio Cee MANUAL DIFF REQ NO Normal [facility] Comment on above: Performed By: #### E RUR #### [facility] [address] [place] [address] Dr. Helio Cee MCH (RBC) [Entitic mass] 29.5 pg Normal 26.7-34.0 [facility] Comment on above: Performed By: #### E RUR #### [facility] [address] [place] [address] Dr. Helio Cee MCHC (RBC) [Mass/Vol] 31.0 g/dL Normal 29.9-35.2 [facility] Comment on above: Performed By: #### E RUR #### [facility] [address] [place] [address] Dr. Helio Cee MCV (RBC) [Entitic vol] 95.4 fL Normal 81.0-99.0 [facility] Comment on above: Performed By: #### E RUR #### [facility] [address] [place] [address] Dr. Helio Cee MONO # 0.8 103/ul Normal 0.3-0.8 [facility] Comment on above: Performed By: #### E RUR #### [facility] [address] [place] [address] Dr. Helio Cee Monocytes/100 WBC (Bld) 7.3 % Normal 1.7-12.0 [facility] Comment on above: Performed By: #### E RUR #### [facility] [address] [place] [address] Dr. Helio Cee NEUT # 7.9 103/ul Critically high 1.4-6.5 [facility] Comment on above: Performed By: #### E RUR #### [facility] [address] [place] [address] Dr. Helio Cee Neutrophils/100 WBC (Bld) 77.2 % Critically high 43.0-75.0 [facility] Comment on above: Performed By: #### E RUR #### [facility] [address] [address] [address] Helio Cee Platelet mean volume (Bld) [Entitic vol] 11.1 fL Normal 9.5-13.5 [facility] Comment on above: Performed By: #### E RUR #### [facility] [address] [address] [address] Helio Cee PLT 245 103/ul Normal 150-450 [facility] Comment on above: Performed By: #### E RUR #### [facility] [address] [address] [address] Helio Cee RBC 3.69 106/ul Critically low 4.20-5.40 [facility] Comment on above: Performed By: #### E RUR #### [facility] [address] [place] [address] Dr. Helio Cee WBC 10.2 103/ul Normal 4.0-11.0 [facility] Comment on above: Performed By: #### E RUR #### [facility] [address] [place] [address] Dr. Helio Cee PROF 14(COMP METB)on 022 Albumin [Mass/Vol] 2.6 g/dL Critically low 3.4-5.0 [facility] Comment on above: Performed By: #### V [id number] #### [facility] [address] [place] [address] Dr. Helio Cee Albumin/Globulin [Mass ratio] 0.7 {ratio} Normal [facility] Comment on above: Performed By: #### V [id number] #### [facility] [address] [place] [address] Dr. Helio Cee ALP [Catalytic activity/Vol] 75 U/L Normal 46-116 [facility] Comment on above: Performed By: #### V [id number] #### [facility] [address] [place] [address] Dr. Helio Cee ALT [Catalytic activity/Vol] 19 U/L Normal 14-59 [facility] Comment on above: Performed By: #### V [id number] #### [facility] [address] [address] [address] Helio Cee Anion gap [Moles/Vol] 11.7 mmol/L Normal Th [facility] Comment on above: Performed By: #### V [id number] #### [facility] [address] [address] [address] Helio Cee AST [Catalytic activity/Vol] 8 U/L Critically low 15-37 [facility] Comment on above: Performed By: #### V [id number] #### [facility] [address] [address] [address] Helio Cee Bilirubin [Mass/Vol] 0.3 mg/dL Normal 0.2-1.0 [facility] Comment on above: Performed By: #### V [id number] #### [facility] [address] [address] [address] Helio Cee Calcium [Mass/Vol] 9.0 mg/dL Normal 8.5-10.1 [facility] Comment on above: Performed By: #### V [id number] #### [facility] [address] [address] [address] Helio Cee Chloride [Moles/Vol] 107 mmol/L Normal 98-107 [facility] Comment on above: Performed By: #### V [id number] #### [facility] [address] [address] [address] Helio Cee CO2 [Moles/Vol] 24.7 mmol/L Normal 21.0-32.0 [facility] Comment on above: Performed By: #### V [id number] #### [facility] [address] [address] [address] Helio Cee Creatinine [Mass/Vol] 0.91 mg/dL Normal 0.55-1.02 [facility] Comment on above: Performed By: #### V [id number] #### [facility] [address] [address] [address] Helio Cee EGFR-AF MALDIVIAN >60 Normal >=60 [facility] Comment on above: Performed By: #### V [id number] #### [facility] [address] [address] [address] Helio Cee EGFR-NON AF MALDIVIAN 60 mL/min/1.73m2 Normal >=60 [facility] Comment on above: Performed By: #### V [id number] #### [facility] [address] [address] [address] Helio Cee Globulin (S) [Mass/Vol] 3.9 g/dL Normal [facility] Comment on above: Performed By: #### V [id number] #### [facility] [address] [address] [address] Helio Cee Glucose [Mass/Vol] 131 mg/dL Critically high 74-106 [facility] Comment on above: Performed By: #### V [id number] #### [facility] [address] [place] [address] Dr. Helio Cee Potassium [Moles/Vol] 3.4 mmol/L Critically low 3.5-5.1 [facility] Comment on above: Performed By: #### V [id number] #### [facility] [address] [address] [address] Helio Cee Protein [Mass/Vol] 6.5 g/dL Normal 6.4-8.2 [facility] Comment on above: Performed By: #### V [id number] #### [facility] [address] [address] [address] Helio Cee Sodium [Moles/Vol] 140 mmol/L Normal 136-145 [facility] Comment on above: Performed By: #### V [id number] #### [facility] [address] [address] [address] Helio Cee Urea nitrogen [Mass/Vol] 14.0 mg/dL Normal 7.0-18.0 [facility] Comment on above: Performed By: #### V [id number] #### [facility] [address] [address] [address] Helio Cee Urea nitrogen/Creatinine [Mass ratio] 15.4 mg/mg Normal [facility] Comment on above: Performed By: #### V [id number] #### [facility] [address] [place] [address] Dr. Helio Cee BNPon 11-20-2021 Natriuretic peptide B (Bld) [Mass/Vol] 781.0 pg/mL Normal <=900.0 [facility] Comment on above: Performed By: #### E RUR #### [facility] [address] [place] [address] Dr. Helio Cee CBC AUTO DIFFon 11-20-2021 BASO # 0.0 103/ul Normal 0.0-0.1 [facility] Comment on above: Performed By: #### V [id number] #### [facility] [address] [place] [address] Dr. Helio Cee Basophils/100 WBC (Bld) 0.3 % Normal 0.2-2.0 [facility] Comment on above: Performed By: #### V [id number] #### [facility] [address] [place] [address] Dr. Helio Cee EO # 0.1 103/ul Normal 0.0-0.7 [facility] Comment on above: Performed By: #### V [id number] #### [facility] [address] [place] [address] Dr. Helio Cee Eosinophils/100 WBC (Bld) 0.5 % Critically low 0.9-7.0 [facility] Comment on above: Performed By: #### V [id number] #### [facility] [address] [place] [address] Dr. Helio Cee Erythrocyte distribution width (RBC) [Ratio] 14.5 % Normal 11.0-15.0 [facility] Comment on above: Performed By: #### V [id number] #### [facility] [address] [place] [address] Dr. Helio Cee Hematocrit (Bld) [Volume fraction] 36.6 % Normal 36.0-48.0 [facility] Comment on above: Performed By: #### V [id number] #### [facility] [address] [place] [address] Dr. Helio Cee Hemoglobin (Bld) [Mass/Vol] 11.5 g/dL Critically low 12.0-16.0 [facility] Comment on above: Performed By: #### V [id number] #### [facility] [address] [place] [address] Dr. Helio Cee IG # 0.07 10e3/ul Critically high 0.00-0.03 [facility] Comment on above: Performed By: #### V [id number] #### [facility] [address] [address] [address] Helio Cee IG % 0.5 % Normal 0.0-0.5 [facility] Comment on above: Performed By: #### V [id number] #### [facility] [address] [place] [address] Dr. Helio Cee LYMPH # 1.2 103/ul Normal 1.2-3.8 [facility] Comment on above: Performed By: #### V [id number] #### [facility] [address] [place] [address] Dr. Helio Cee Lymphocytes/100 WBC (Bld) 9.5 % Critically low 20.5-60.0 [facility] Comment on above: Performed By: #### V [id number] #### [facility] [address] [place] [address] Dr. Helio Cee MANUAL DIFF REQ NO Normal [facility] Comment on above: Performed By: #### V [id number] #### [facility] [address] [place] [address] Dr. Helio Cee MCH (RBC) [Entitic mass] 30.2 pg Normal 26.7-34.0 [facility] Comment on above: Performed By: #### V [id number] #### [facility] [address] [place] [address] Dr. Helio Cee MCHC (RBC) [Mass/Vol] 31.4 g/dL Normal 29.9-35.2 [facility] Comment on above: Performed By: #### V [id number] #### [facility] [address] [place] [address] Dr. Helio Cee MCV (RBC) [Entitic vol] 96.1 fL Normal 81.0-99.0 [facility] Comment on above: Performed By: #### V [id number] #### [facility] [address] [place] [address] Dr. Helio Cee MONO # 0.7 103/ul Normal 0.3-0.8 [facility] Comment on above: Performed By: #### V [id number] #### [facility] [address] [place] [address] Dr. Helio Cee Monocytes/100 WBC (Bld) 5.7 % Normal 1.7-12.0 [facility] Comment on above: Performed By: #### V [id number] #### [facility] [address] [place] [address] Dr. Helio Cee NEUT # 10.8 103/ul Critically high 1.4-6.5 [facility] Comment on above: Performed By: #### V [id number] #### [facility] [address] [place] [address] Dr. Helio Cee Neutrophils/100 WBC (Bld) 83.5 % Critically high 43.0-75.0 [facility] Comment on above: Performed By: #### V [id number] #### [facility] [address] [place] [address] Dr. Helio Cee Platelet mean volume (Bld) [Entitic vol] 11.1 fL Normal 9.5-13.5 [facility] Comment on above: Performed By: #### V [id number] #### [facility] [address] [place] [address] Dr. Helio Cee PLT 231 103/ul Normal 150-450 [facility] Comment on above: Performed By: #### V [id number] #### [facility] [address] [place] [address] Dr. Helio Cee RBC 3.81 106/ul Critically low 4.20-5.40 [facility] Comment on above: Performed By: #### V [id number] #### [facility] [address] [place] [address] Dr. Helio Cee WBC 13.0 103/ul Critically high 4.0-11.0 [facility] Comment on above: Performed By: #### V [id number] #### [facility] [address] [place] [address] Dr. Helio Cee PROF 14(COMP METB)on 022 Albumin [Mass/Vol] 2.9 g/dL Critically low 3.4-5.0 [facility] Comment on above: Performed By: #### E RUR #### [facility] [address] [place] [address] Dr. Helio Cee Albumin/Globulin [Mass ratio] 0.8 {ratio} Normal [facility] Comment on above: Performed By: #### E RUR #### [facility] [address] [place] [address] Dr. Helio Cee ALP [Catalytic activity/Vol] 81 U/L Normal 46-116 [facility] Comment on above: Performed By: #### E RUR #### [facility] [address] [place] [address] Dr. Helio Cee ALT [Catalytic activity/Vol] 21 U/L Normal 14-59 [facility] Comment on above: Performed By: #### E RUR #### [facility] [address] [place] [address] Dr. Helio Cee Anion gap [Moles/Vol] 12.4 mmol/L Normal [facility] Comment on above: Performed By: #### E RUR #### [facility] [address] [place] [address] Dr. Helio Cee AST [Catalytic activity/Vol] 11 U/L Critically low 15-37 [facility] Comment on above: Performed By: #### E RUR #### [facility] [address] [place] [address] Dr. Helio Cee Bilirubin [Mass/Vol] 0.4 mg/dL Normal 0.2-1.0 [facility] Comment on above: Performed By: #### E RUR #### [facility] [address] [place] [address] Dr. Helio Cee Calcium [Mass/Vol] 8.7 mg/dL Normal 8.5-10.1 [facility] Comment on above: Performed By: #### E RUR #### [facility] [address] [place] [address] Dr. Helio Cee Chloride [Moles/Vol] 108 mmol/L Critically high 98-107 [facility] Comment on above: Performed By: #### E RUR #### [facility] [address] [place] [address] Dr. Helio Cee CO2 [Moles/Vol] 24.2 mmol/L Normal 21.0-32.0 [facility] Comment on above: Performed By: #### E RUR #### [facility] [address] [place] [address] Dr. Helio Cee Creatinine [Mass/Vol] 1.03 mg/dL Critically high 0.55-1.02 [facility] Comment on above: Performed By: #### E RUR #### [facility] [address] [place] [address] Dr. Helio Cee EGFR-AF MALDIVIAN >60 Normal >=60 [facility] Comment on above: Performed By: #### E RUR #### [facility] [address] [place] [address] Dr. Hleio Cee EGFR-NON AF MALDIVIAN 52 mL/min/1.73m2 Critically low >=60 [facility] Comment on above: Performed By: #### E RUR #### [facility] [address] [place] [address] Dr. Helio Cee Globulin (S) [Mass/Vol] 3.5 g/dL Normal [facility] Comment on above: Performed By: #### E RUR #### [facility] [address] [place] [address] Dr. Helio Cee Glucose [Mass/Vol] 142 mg/dL Critically high 74-106 [facility] Comment on above: Performed By: #### E RUR #### [facility] [address] [place] [address] Dr. Helio Cee Potassium [Moles/Vol] 3.6 mmol/L Normal 3.5-5.1 [facility] Comment on above: Performed By: #### E RUR #### [facility] [address] [place] [address] Dr. Helio Cee Protein [Mass/Vol] 6.4 g/dL Normal 6.4-8.2 [facility] Comment on above: Performed By: #### E RUR #### [facility] [address] [address] [address] Helio Cee Sodium [Moles/Vol] 141 mmol/L Normal 136-145 [facility] Comment on above: Performed By: #### E RUR #### [facility] [address] [place] [address] Dr. Helio Cee Urea nitrogen [Mass/Vol] 19.0 mg/dL Critically high 7.0-18.0 [facility] Comment on above: Performed By: #### E RUR #### [facility] [address] [place] [address] Dr. Helio Cee Urea nitrogen/Creatinine [Mass ratio] 18.4 mg/mg Normal [facility] Comment on above: Performed By: #### E RUR #### [facility] [address] [place] [address] Dr. Helio Cee XR CHEST 2 Von [...] EUN BARRY Date: 2021-11-20 07:56 Normal [facility] BNPon 11-19-2021 Natriuretic peptide B (Bld) [Mass/Vol] 777.0 pg/mL Normal <=900.0 [facility] Comment on above: Performed By: #### E RUR #### [facility] [address] [address] [address] Helio Cee CBC AUTO DIFFon 11-19-2021 BASO # 0.0 103/ul Normal 0.0-0.1 [facility] Comment on above: Performed By: #### V [id number] #### [facility] [address] [place] [address] Dr. Helio Cee Basophils/100 WBC (Bld) 0.2 % Normal 0.2-2.0 [facility] Comment on above: Performed By: #### V [id number] #### [facility] [address] [place] [address] Dr. Helio Cee EO # 0.1 103/ul Normal 0.0-0.7 [facility] Comment on above: Performed By: #### V [id number] #### [facility] [address] [place] [address] Dr. Helio Cee Eosinophils/100 WBC (Bld) 0.5 % Critically low 0.9-7.0 [facility] Comment on above: Performed By: #### V [id number] #### [facility] [address] [place] [address] Dr. Helio Cee Erythrocyte distribution width (RBC) [Ratio] 14.6 % Normal 11.0-15.0 [facility] Comment on above: Performed By: #### V [id number] #### [facility] [address] [place] [address] Dr. Helio eCe Hematocrit (Bld) [Volume fraction] 37.4 % Normal 36.0-48.0 [facility] Comment on above: Performed By: #### V [id number] #### [facility] [address] [place] [address] Dr. Helio Cee Hemoglobin (Bld) [Mass/Vol] 11.5 g/dL Critically low 12.0-16.0 [facility] Comment on above: Performed By: #### V [id number] #### [facility] [address] [place] [address] Dr. Helio Cee IG # 0.07 10e3/ul Critically high 0.00-0.03 [facility] Comment on above: Performed By: #### V [id number] #### [facility] [address] [address] [address] Helio Cee IG % 0.5 % Normal 0.0-0.5 [facility] Comment on above: Performed By: #### V [id number] #### [facility] [address] [address] [address] Helio Cee LYMPH # 1.1 103/ul Critically low 1.2-3.8 [facility] Comment on above: Performed By: #### V [id number] #### [facility] [address] [place] [address] Dr. Helio Cee Lymphocytes/100 WBC (Bld) 6.8 % Critically low 20.5-60.0 [facility] Comment on above: Performed By: #### V [id number] #### [facility] [address] [place] [address] Dr. Helio Cee MANUAL DIFF REQ NO Normal [facility] Comment on above: Performed By: #### V [id number] #### [facility] [address] [place] [address] Dr. Helio Cee MCH (RBC) [Entitic mass] 30.1 pg Normal 26.7-34.0 [facility] Comment on above: Performed By: #### V [id number] #### [facility] [address] [place] [address] Dr. Helio Cee MCHC (RBC) [Mass/Vol] 30.7 g/dL Normal 29.9-35.2 [facility] Comment on above: Performed By: #### V [id number] #### [facility] [address] [place] [address] Dr. Helio Cee MCV (RBC) [Entitic vol] 97.9 fL Normal 81.0-99.0 [facility] Comment on above: Performed By: #### V [id number] #### [facility] [address] [place] [address] Dr. Helio Cee MONO # 0.8 103/ul Normal 0.3-0.8 [facility] Comment on above: Performed By: #### V [id number] #### [facility] [address] [address] [address] Helio Cee Monocytes/100 WBC (Bld) 5.3 % Normal 1.7-12.0 [facility] Comment on above: Performed By: #### V [id number] #### [facility] [address] [address] [address] Helio Cee NEUT # 13.3 103/ul Critically high 1.4-6.5 [facility] Comment on above: Performed By: #### V [id number] #### [facility] [address] [address] [address] Helio Cee Neutrophils/100 WBC (Bld) 86.7 % Critically high 43.0-75.0 [facility] Comment on above: Performed By: #### V [id number] #### [facility] [address] [place] [address] Dr. Helio Cee Platelet mean volume (Bld) [Entitic vol] 11.4 fL Normal 9.5-13.5 [facility] Comment on above: Performed By: #### V [id number] #### [facility] [address] [address] [address] Helio Cee PLT 215 103/ul Normal 150-450 [facility] Comment on above: Performed By: #### V [id number] #### [facility] [address] [address] [address] Helio Cee RBC 3.82 106/ul Critically low 4.20-5.40 [facility] Comment on above: Performed By: #### V [id number] #### [facility] [address] [address] [address] Helio Cee WBC 15.3 103/ul Critically high 4.0-11.0 [facility] Comment on above: Performed By: #### V [id number] #### [facility] [address] [place] [address] Dr. Helio Cee PROF 14(COMP METB)on 022 Albumin [Mass/Vol] 2.8 g/dL Critically low 3.4-5.0 [facility] Comment on above: Performed By: #### E RUR #### [facility] [address] [address] [address] Helio Cee Albumin/Globulin [Mass ratio] 0.8 {ratio} Normal [facility] Comment on above: Performed By: #### E RUR #### [facility] [address] [address] [address] Helio Cee ALP [Catalytic activity/Vol] 74 U/L Normal 46-116 [facility] Comment on above: Performed By: #### E RUR #### [facility] [address] [address] [address] Helio Cee ALT [Catalytic activity/Vol] 21 U/L Normal 14-59 [facility] Comment on above: Performed By: #### E RUR #### [facility] [address] [place] [address] Dr. Helio Cee Anion gap [Moles/Vol] 13.5 mmol/L Normal Th [facility] Comment on above: Performed By: #### E RUR #### [facility] [address] [place] [address] Dr. Helio Cee AST [Catalytic activity/Vol] 11 U/L Critically low 15-37 [facility] Comment on above: Performed By: #### E RUR #### [facility] [address] [place] [address] Dr. Helio Cee Bilirubin [Mass/Vol] 0.5 mg/dL Normal 0.2-1.0 [facility] Comment on above: Performed By: #### E RUR #### [facility] [address] [place] [address] Dr. Helio Cee Calcium [Mass/Vol] 8.4 mg/dL Critically low 8.5-10.1 [facility] Comment on above: Performed By: #### E RUR #### [facility] [address] [place] [address] Dr. Helio Cee Chloride [Moles/Vol] 107 mmol/L Normal 98-107 [facility] Comment on above: Performed By: #### E RUR #### [facility] [address] [address] [address] Helio Cee CO2 [Moles/Vol] 21.0 mmol/L Normal 21.0-32.0 [facility] Comment on above: Performed By: #### E RUR #### [facility] [address] [address] [address] Helio Cee Creatinine [Mass/Vol] 1.07 mg/dL Critically high 0.55-1.02 [facility] Comment on above: Performed By: #### E RUR #### [facility] [address] [address] [address] Helio Cee EGFR-AF MALDIVIAN >60 Normal >=60 [facility] Comment on above: Performed By: #### E RUR #### [facility] [address] [place] [address] Dr. Helio Cee EGFR-NON AF MALDIVIAN 50 mL/min/1.73m2 Critically low >=60 [facility] Comment on above: Performed By: #### E RUR #### [facility] [address] [address] [address] Helio Cee Globulin (S) [Mass/Vol] 3.4 g/dL Normal [facility] Comment on above: Performed By: #### E RUR #### [facility] [address] [address] [address] Helio Cee Glucose [Mass/Vol] 109 mg/dL Critically high 74-106 [facility] Comment on above: Performed By: #### E RUR #### [facility] [address] [address] [address] Helio Cee Potassium [Moles/Vol] 3.5 mmol/L Normal 3.5-5.1 [facility] Comment on above: Performed By: #### E RUR #### [facility] [address] [address] [address] Helio Cee Protein [Mass/Vol] 6.2 g/dL Critically low 6.4-8.2 Th [facility] Comment on above: Performed By: #### E RUR #### [facility] [address] [place] [address] Dr. Helio Cee Sodium [Moles/Vol] 138 mmol/L Normal 136-145 [facility] Comment on above: Performed By: #### E RUR #### [facility] [address] [place] [address] Dr. Helio Cee Urea nitrogen [Mass/Vol] 25.0 mg/dL Critically high 7.0-18.0 [facility] Comment on above: Performed By: #### E RUR #### [facility] [address] [place] [address] Dr. Helio Cee Urea nitrogen/Creatinine [Mass ratio] 23.4 mg/mg Normal [facility] Comment on above: Performed By: #### E RUR #### [facility] [address] [place] [address] Dr. Helio Cee BNPon 11-18-2021 Natriuretic peptide B (Bld) [Mass/Vol] 386.0 pg/mL Normal <=900.0 [facility] Comment on above: Performed By: #### B CHEMICAL WORKER, HSTROPN, BMP ####[facility] [id number] [place], [place] [address]Dr. Helio Cee CBC AUTO DIFFon 11-18-2021 BASO # 0.0 103/ul Normal 0.0-0.1 [facility] Comment on above: Performed By: #### V [id number] #### [facility] [address] [place] [address] Dr. Helio Cee Basophils/100 WBC (Bld) 0.3 % Normal 0.2-2.0 [facility] Comment on above: Performed By: #### V [id number] #### [facility] [address] [place] [address] Dr. Helio Cee EO # 0.0 103/ul Normal 0.0-0.7 [facility] Comment on above: Performed By: #### V [id number] #### [facility] [address] [place] [address] Dr. Helio Cee Eosinophils/100 WBC (Bld) 0.1 % Critically low 0.9-7.0 [facility] Comment on above: Performed By: #### V [id number] #### [facility] [address] [place] [address] Dr. Helio Cee Erythrocyte distribution width (RBC) [Ratio] 14.4 % Normal 11.0-15.0 [facility] Comment on above: Performed By: #### V [id number] #### [facility] [address] [place] [address] Dr. Helio Cee Hematocrit (Bld) [Volume fraction] 43.6 % Normal 36.0-48.0 [facility] Comment on above: Performed By: #### V [id number] #### [facility] [address] [place] [address] Dr. Helio Cee Hemoglobin (Bld) [Mass/Vol] 13.4 g/dL Normal 12.0-16.0 [facility] Comment on above: Performed By: #### V [id number] #### [facility] [address] [place] [address] Dr. Helio Cee IG # 0.03 10e3/ul Normal 0.00-0.03 [facility] Comment on above: Performed By: #### V [id number] #### [facility] [address] [place] [address] Dr. Helio Cee IG % 0.3 % Normal 0.0-0.5 [facility] Comment on above: Performed By: #### V [id number] #### [facility] [address] [place] [address] Dr. Helio Cee LYMPH # 0.4 103/ul Critically low 1.2-3.8 [facility] Comment on above: Performed By: #### V [id number] #### [facility] [address] [place] [address] Dr. Helio Cee Lymphocytes/100 WBC (Bld) 4.0 % Critically low 20.5-60.0 [facility] Comment on above: Performed By: #### V [id number] #### [facility] [address] [place] [address] Dr. Helio Cee MANUAL DIFF REQ NO Normal [facility] Comment on above: Performed By: #### V [id number] #### [facility] [address] [place] [address] Dr. Helio Cee MCH (RBC) [Entitic mass] 29.6 pg Normal 26.7-34.0 [facility] Comment on above: Performed By: #### V [id number] #### [facility] [address] [place] [address] Dr. Helio Cee MCHC (RBC) [Mass/Vol] 30.7 g/dL Normal 29.9-35.2 [facility] Comment on above: Performed By: #### V [id number] #### [facility] [address] [place] [address] Dr. Helio Cee MCV (RBC) [Entitic vol] 96.5 fL Normal 81.0-99.0 [facility] Comment on above: Performed By: #### V [id number] #### [facility] [address] [place] [address] Dr. Helio Cee MONO # 0.6 103/ul Normal 0.3-0.8 [facility] Comment on above: Performed By: #### V [id number] #### [facility] [address] [place] [address] Dr. Helio Cee Monocytes/100 WBC (Bld) 5.4 % Normal 1.7-12.0 [facility] Comment on above: Performed By: #### V [id number] #### [facility] [address] [place] [address] Dr. Helio Cee NEUT # 9.7 103/ul Critically high 1.4-6.5 [facility] Comment on above: Performed By: #### V [id number] #### [facility] [address] [place] [address] Dr. Helio Cee Neutrophils/100 WBC (Bld) 89.9 % Critically high 43.0-75.0 [facility] Comment on above: Performed By: #### V [id number] #### [facility] [address] [place] [address] Dr. Helio Cee Platelet mean volume (Bld) [Entitic vol] 10.9 fL Normal 9.5-13.5 [facility] Comment on above: Performed By: #### V [id number] #### [facility] [address] [place] [address] Dr. Helio Cee PLT 265 103/ul Normal 150-450 [facility] Comment on above: Performed By: #### V [id number] #### [facility] [address] [place] [address] Dr. Helio Cee RBC 4.52 106/ul Normal 4.20-5.40 [facility] Comment on above: Performed By: #### V [id number] #### [facility] [address] [place] [address] Dr. Helio Cee WBC 10.7 103/ul Normal 4.0-11.0 [facility] Comment on above: Performed By: #### V [id number] #### [facility] [address] [place] [address] Dr. Helio Cee CULTURE BLOODon 11-18-2021 Microscopic examination of blood, culture Culture Observations: NO GROWTH AT [address] [facility] Comment on above: Performed By: #### B [id number] #### [facility] [address] [place] [address] Dr. Helio Cee Microscopic examination of blood, culture Culture Observations: NO GROWTH AT [address] [facility] Comment on above: Performed By: #### B [id number] #### [facility] [address] [place] [address] Dr. Helio Cee Covid-19 PCR (CVDTB)on SARS-CoV-2 (COVID-19) RNA KIMMY+probe Ql (Unsp spec) Not detected Normal NOT DETECTED [facility] Comment on above: Result Comment: When diagnostic [...] for this test is supported by the [place] [employer] and Human Service's declaration that [...] used). Performed By: #### E RUR #### [facility] [address] [place] [address] Dr. Helio Cee ER URINE PROFILEon 2 Bilirubin Ql (U) Negative Normal NEGATIVE [facility] Comment on above: Performed By: #### E RUR #### [facility] [address] [place] [address] Dr. Helio Cee Clarity (U) CLEAR Normal CLEAR [facility] Comment on above: Performed By: #### E RUR #### [facility] [address] [place] [address] Dr. Helio Cee Color (U) LT. YELLOW Normal YELLOW [facility] Comment on above: Performed By: #### E RUR #### [facility] [address] [place] [address] Dr. Helio NAVARRETE A micrscopic examination will be performed if indicated. Normal [facility] Comment on above: Performed By: #### E RUR #### [facility] [address] [place] [address] Dr. Helio Cee Glucose Ql (U) Negative Normal NEGATIVE [facility] Comment on above: Performed By: #### E RUR #### [facility] [address] [place] [address] Dr. Helio Cee Hemoglobin Ql (U) Negative Normal NEGATIVE [facility] Comment on above: Performed By: #### E RUR #### [facility] [address] [place] [address] Dr. Helio Cee Ketones Ql (U) Negative Normal NEGATIVE [facility] Comment on above: Performed By: #### E RUR #### [facility] [address] [place] [address] Dr. Helio Cee LEUKOCYTES Negative Normal NEGATIVE [facility] Comment on above: Performed By: #### E RUR #### [facility] [address] [place] [address] Dr. Helio Cee Nitrite Ql (U) Negative Normal NEGATIVE [facility] Comment on above: Performed By: #### E RUR #### [facility] [address] [place] [address] Dr. Helio Cee pH (U) 5.5 [pH] Normal 5-9 [facility] Comment on above: Performed By: #### E RUR #### [facility] [address] [place] [address] Dr. Helio Cee SPEC GRAVITY 1.015 Normal 1.005-<=1.[address] [facility] Comment on above: Performed By: #### E RUR #### [facility] [address] [place] [address] Dr. Helio Cee UA PROTEIN Negative Normal NEGATIVE/ TRACE [facility] Comment on above: Performed By: #### E RUR #### [facility] [address] [place] [address] Dr. Helio Cee UR MICRO IND NOT INDICATED Normal [facility] Comment on above: Performed By: #### E RUR #### [facility] [address] [place] [address] Dr. Helio Cee Urobilinogen Qn (U) 0.2 {Nevaeh'U}/dL Normal 0.2 - 1. 0 [facility] Comment on above: Performed By: #### E RUR #### [facility] [address] [place] [address] Dr. Helio Cee PROF CHEM 8 (BAS METB)on Anion gap [Moles/Vol] 13.6 mmol/L Normal Th [facility] Comment on above: Performed By: #### B CHEMICAL WORKER, HSTROPN, BMP ####[facility] [address] [address]Dr. Helio Cee Calcium [Mass/Vol] 9.1 mg/dL Normal 8.5-10.1 [facility] Comment on above: Performed By: #### B CHEMICAL WORKER, HSTROPN, BMP ####[facility] [address] [address]Dr. Helio Cee Chloride [Moles/Vol] 110 mmol/L Critically high 98-107 [facility] Comment on above: Performed By: #### B CHEMICAL WORKER, HSTROPN, BMP ####[facility] [address] [address]Dr. Helio Cee CO2 [Moles/Vol] 22.9 mmol/L Normal 21.0-32.0 [facility] Comment on above: Performed By: #### B CHEMICAL WORKER, HSTROPN, BMP ####[facility] [address] [place], [place] [address]Dr. Helio Cee Creatinine [Mass/Vol] 1.47 mg/dL Critically high 0.55-1.02 [facility] Comment on above: Performed By: #### B CHEMICAL WORKER, HSTROPN, BMP ####[facility] [address] [place], [place] [address]Dr. Helio Cee EGFR-AF MALDIVIAN 42 mL/min/1.73m2 Critically low >=60 [facility] Comment on above: Performed By: #### B CHEMICAL WORKER, HSTROPN, BMP ####[facility] [address] [place], [place] [address]Dr. Helio Cee EGFR-NON AF MALDIVIAN 35 mL/min/1.73m2 Critically low >=60 [facility] Comment on above: Performed By: #### B CHEMICAL WORKER, HSTROPN, BMP ####[facility] [address] [place], [place] [address]Dr. Helio Cee Glucose [Mass/Vol] 120 mg/dL Critically high 74-106 [facility] Comment on above: Performed By: #### B CHEMICAL WORKER, HSTROPN, BMP ####[facility] [address] [place], [place] [address]Dr. Helio Cee Potassium [Moles/Vol] 3.5 mmol/L Normal 3.5-5.1 [facility] Comment on above: Performed By: #### B CHEMICAL WORKER, HSTRALEJANRDA, BMP ####[facility] [address] [address]Dr. Helio Cee Sodium [Moles/Vol] 143 mmol/L Normal 136-145 [facility] Comment on above: Performed By: #### B CHEMICAL WORKER, HSTROPN, BMP ####[facility] [address] [address]Dr. Helio Cee Urea nitrogen [Mass/Vol] 29.0 mg/dL Critically high 7.0-18.0 [facility] Comment on above: Performed By: #### B CHEMICAL WORKER, HSTROPN, BMP ####[facility] [address] [address]Dr. Helio Cee Urea nitrogen/Creatinine [Mass ratio] 19.7 mg/mg Normal [facility] Comment on above: Performed By: #### B CHEMICAL WORKER, HSTROPN, BMP ####[facility] [address] [address]Dr. Helio Cee TROPONIN, HIGH SENSITIVITYon 11-18-2021 HSTROP 8.2 pg/mL Normal 4.0-51.3 [facility] Comment on above: Result Comment: CUT- OFF POINTS HAVE BEEN ESTABLISHED BASED ON THE FOURTH UNIVERSAL DEFINITIONS OF MYOCARDIAL INFARCTION. THE UPPER REFERENCE LIMIT (URL) OF TROPONIN, DEFINED THE 99TH PERCENTILE OF cTnI DISTRIBUTION IN A REFERENCE POPULATION, HAS BEEN CONFIRMED THE DECISION THRESHOLD FOR [place] DIAGNOSIS. Performed By: #### B CHEMICAL WORKER, HSTROPN, BMP ####[facility] [address] [address]Dr. Helio Cee XR CHEST 1 Von 11-18-2021 XR CHEST 1 V EXAMINATION: XR CHEST 1 V HISTORY: COUGH COMPARISON: No relevant [...] by: EHSAN MILLER Date: 2021-11-18 10:[address] [facility] BNPon 10-25-2021 Natriuretic peptide B (Bld) [Mass/Vol] 396.0 pg/mL Normal <=900.0 [facility] Comment on above: Performed By: #### V [id number] #### [facility] [address] [place] [address] Dr. Helio Cee CBC AUTO DIFFon 10-25-2021 BASO # 0.1 103/ul Normal 0.0-0.1 [facility] Comment on above: Performed By: #### E RUR #### [facility] [address] [place] [address] Dr. Helio Cee Basophils/100 WBC (Bld) 1.0 % Normal 0.2-2.0 [facility] Comment on above: Performed By: #### E RUR #### [facility] [address] [place] [address] Dr. Helio Cee EO # 0.2 103/ul Normal 0.0-0.7 [facility] Comment on above: Performed By: #### E RUR #### [facility] [address] [place] [address] Dr. Heloi Cee Eosinophils/100 WBC (Bld) 2.7 % Normal 0.9-7.0 [facility] Comment on above: Performed By: #### E RUR #### [facility] [address] [place] [address] Dr. Helio Cee Erythrocyte distribution width (RBC) [Ratio] 14.6 % Normal 11.0-15.0 [facility] Comment on above: Performed By: #### E RUR #### [facility] [address] [place] [address] Dr. Helio Cee Hematocrit (Bld) [Volume fraction] 44.8 % Normal 36.0-48.0 [facility] Comment on above: Performed By: #### E RUR #### [facility] [address] [address] [address] Helio Cee Hemoglobin (Bld) [Mass/Vol] 13.8 g/dL Normal 12.0-16.0 [facility] Comment on above: Performed By: #### E RUR #### [facility] [address] [address] [address] Helio Cee IG # 0.03 10e3/ul Normal 0.00-0.03 [facility] Comment on above: Performed By: #### E RUR #### [facility] [address] [address] [address] Helio Cee IG % 0.3 % Normal 0.0-0.5 [facility] Comment on above: Performed By: #### E RUR #### [facility] [address] [place] [address] Dr. Helio Cee LYMPH # 1.6 103/ul Normal 1.2-3.8 [facility] Comment on above: Performed By: #### E RUR #### [facility] [address] [place] [address] Dr. Helio Cee Lymphocytes/100 WBC (Bld) 18.5 % Critically low 20.5-60.0 [facility] Comment on above: Performed By: #### E RUR #### [facility] [address] [place] [address] Dr. Helio Cee MANUAL DIFF REQ NO Normal [facility] Comment on above: Performed By: #### E RUR #### [facility] [address] [address] [address] Helio Cee MCH (RBC) [Entitic mass] 29.9 pg Normal 26.7-34.0 [facility] Comment on above: Performed By: #### E RUR #### [facility] [address] [address] [address] Helio Cee MCHC (RBC) [Mass/Vol] 30.8 g/dL Normal 29.9-35.2 [facility] Comment on above: Performed By: #### E RUR #### [facility] [address] [place] [address] Dr. Helio Cee MCV (RBC) [Entitic vol] 97.2 fL Normal 81.0-99.0 [facility] Comment on above: Performed By: #### E RUR #### [facility] [address] [place] [address] Dr. Helio Cee MONO # 0.6 103/ul Normal 0.3-0.8 [facility] Comment on above: Performed By: #### E RUR #### [facility] [address] [place] [address] Dr. Helio Cee Monocytes/100 WBC (Bld) 7.0 % Normal 1.7-12.0 [facility] Comment on above: Performed By: #### E RUR #### [facility] [address] [place] [address] Dr. Helio Cee NEUT # 6.1 103/ul Normal 1.4-6.5 [facility] Comment on above: Performed By: #### E RUR #### [facility] [address] [place] [address] Dr. Helio Cee Neutrophils/100 WBC (Bld) 70.5 % Normal 43.0-75.0 [facility] Comment on above: Performed By: #### E RUR #### [facility] [address] [place] [address] Dr. Helio Cee Platelet mean volume (Bld) [Entitic vol] 11.0 fL Normal 9.5-13.5 [facility] Comment on above: Performed By: #### E RUR #### [facility] [address] [place] [address] Dr. Helio Cee PLT 292 103/ul Normal 150-450 [facility] Comment on above: Performed By: #### E RUR #### [facility] [address] [place] [address] Dr. Helio Cee RBC 4.61 106/ul Normal 4.20-5.40 [facility] Comment on above: Performed By: #### E RUR #### [facility] [address] [place], [place] [address] Dr. Helio Cee WBC 8.6 103/ul Normal 4.0-11.0 [facility] Comment on above: Performed By: #### E RUR #### [facility] [address] [place], [place] [address] Dr. Helio Cee ECHOCARDIO M/2D COMPLETEon 0 10-25-2021 ECHOCARDIO M/2D COMPLETE Patient: AARON JJ Exam Date: 10/25/2021 : 1945 Gender:F Ordering : DR JEREMIAH REED M.D. Admission #: [id number] Family : Order #: [id number] CLICK HERE TO VIEW EXAM ECHOCARDIOGRAM REPORT [...] Area(A4C): 20.40 cm2 Left Atrium Systolic Volume(A2C): 82466 mm3 Left Atrium Systolic Volume(A4C): 16741 mm3 Mitral Valve MV E to A Ratio: 0.80 Deceleration [place]: 4670 mm/s2 Mitral Valve A-Wave Peak Velocity: [...] Cheema M.D. on 10/25/2021 at 19:[address] [facility] MAMM SCREEN 3D EBONI CADon 10-25-2021 MG MAMM SCREEN 3D EBONI CAD Patient: AARON JJ Exam Date: 10/25/2021 : 1945 Gender:F Ordering : DR JEREMIAH REED M.D. Admission #: [id number] Family : Order #: [id number] CLICK HERE TO VIEW EXAM RADIOLOGY REPORT PROCEDURE: MAMMOGRAM SCREENING 3D BILATERAL CAD COMPARISON: MG MAMM SCREEN EBONI W CAD, 02/17/2020. MG MAMM SCREEN EBONI W CAD, 10/10/2018. INDICATIONS: Screening mammography Calculator Name NCI Breast Cancer Risk Assessment Tool 5 Year Breast Cancer Risk 4.90% Lifetime Breast Cancer Risk 11.00% Personal Breast Cancer No Personal Ovarian Cancer No Treatments Hysterectomy Family Cancers Mother with breast cancer at age 50; Aunt-maternal with breast cancer at age 70. LOCATION: [facility] BREAST COMPOSITION: Heterogeneously dense,which may obscure small [...] Miller M.D. on 10/25/2021 at 15:[address] [facility] PROF 14(COMP METB)on 022 Albumin [Mass/Vol] 3.8 g/dL Normal 3.4-5.0 [facility] Comment on above: Performed By: #### V [id number] #### [facility] [address] [place] [address] Dr. Helio Cee Albumin/Globulin [Mass ratio] 1.1 {ratio} Normal [facility] Comment on above: Performed By: #### V [id number] #### [facility] [address] [place] [address] Dr. Helio Cee ALP [Catalytic activity/Vol] 97 U/L Normal 46-116 [facility] Comment on above: Performed By: #### V [id number] #### [facility] [address] [place] [address] Dr. Helio Cee ALT [Catalytic activity/Vol] 31 U/L Normal 14-59 [facility] Comment on above: Performed By: #### V [id number] #### [facility] [address] [address] [address] Helio Cee Anion gap [Moles/Vol] 11.0 mmol/L Normal Th [facility] Comment on above: Performed By: #### V [id number] #### [facility] [address] [address] [address] Helio Cee AST [Catalytic activity/Vol] 13 U/L Critically low 15-37 [facility] Comment on above: Performed By: #### V [id number] #### [facility] [address] [address] [address] Helio Cee Bilirubin [Mass/Vol] 0.4 mg/dL Normal 0.2-1.0 [facility] Comment on above: Performed By: #### V [id number] #### [facility] [address] [place] [address] Dr. Helio Cee Calcium [Mass/Vol] 9.3 mg/dL Normal 8.5-10.1 [facility] Comment on above: Performed By: #### V [id number] #### [facility] [address] [address] [address] Helio Cee Chloride [Moles/Vol] 108 mmol/L Critically high 98-107 [facility] Comment on above: Performed By: #### V [id number] #### [facility] [address] [place] [address] Dr. Helio Cee CO2 [Moles/Vol] 28.4 mmol/L Normal 21.0-32.0 [facility] Comment on above: Performed By: #### V [id number] #### [facility] [address] [place] [address] Dr. Helio Cee Creatinine [Mass/Vol] 1.09 mg/dL Critically high 0.55-1.02 [facility] Comment on above: Performed By: #### V [id number] #### [facility] [address] [place] [address] Dr. Helio Cee EGFR-AF MALDIVIAN 59 mL/min/1.73m2 Critically low >=60 [facility] Comment on above: Performed By: #### V [id number] #### [facility] [address] [place] [address] Dr. Helio Cee EGFR-NON AF MALDIVIAN 49 mL/min/1.73m2 Critically low >=60 [facility] Comment on above: Performed By: #### V [id number] #### [facility] [address] [address] [address] Helio Cee Globulin (S) [Mass/Vol] 3.4 g/dL Normal T [facility] Comment on above: Performed By: #### V [id number] #### [facility] [address] [address] [address] Helio Cee Glucose [Mass/Vol] 100 mg/dL Normal 74-106 [facility] Comment on above: Performed By: #### V [id number] #### [facility] [address] [place] [address] Dr. Helio Cee Potassium [Moles/Vol] 4.4 mmol/L Normal 3.5-5.1 [facility] Comment on above: Performed By: #### V [id number] #### [facility] [address] [place] [address] Dr. Helio Cee Protein [Mass/Vol] 7.2 g/dL Normal 6.4-8.2 [facility] Comment on above: Performed By: #### V [id number] #### [facility] [address] [place] [address] Dr. Helio Cee Sodium [Moles/Vol] 143 mmol/L Normal 136-145 [facility] Comment on above: Performed By: #### V [id number] #### [facility] [address] [place] [address] Dr. Helio Cee Urea nitrogen [Mass/Vol] 24.0 mg/dL Critically high 7.0-18.0 [facility] Comment on above: Performed By: #### V [id number] #### [facility] [address] [place] [address] Dr. Helio Cee Urea nitrogen/Creatinine [Mass ratio] 22.0 mg/mg Normal [facility] Comment on above: Performed By: #### V [id number] #### [facility] [address] [place] [address] Dr. Helio Cee TSHon 10-25-2021 TSH 0.635 uIU/mL Normal 0.358-3.740 [facility] Comment on above: Performed By: #### V [id number] #### [facility] [address] [place], [place] [id number] Dr. Helio Cee Vital Signs Date Time Vital Sign Value Performing Clinician Facility 06-05-2023 12:55-0500 Blood Pressure Location BRENDA MARIN [facility] 06-05-2023 12:55-0500 Diastolic blood pressure 88 mm[Hg] BRENDA MIAH [facility] 06-05-2023 12:55-0500 Heart rate 74 /min BRENDA MIAH [facility] 06-05-2023 12:55-0500 Respiratory rate 16 /min BRENDA MIAH [facility] 06-05-2023 12:55-0500 Systolic blood pressure 134 mm[Hg] BRENDA MIAH [facility] 04-30-2023 15:30-0500 Body height 161.29 cm Jeremiah Reed Other [employer] Other 04-30-2023 15:30-0500 Body mass index (BMI) [Ratio] 35.29 kg/m2 Jeremiah Reed Other [employer] Other 04-30-2023 15:30-0500 Body weight 91.81 kg Jeremiah Reed Other [employer] Other 04-30-2023 15:30-0500 Diastolic blood pressure 74 mm[Hg] Jeremiah Reed Other [employer] Other 04-30-2023 15:30-0500 Systolic blood pressure 109 mm[Hg] Jeremiah Reed Other [facility] [employer] Other 04-13-2023 14:40-0500 [facility] 04-13-2023 14:40-0500 Promise [facility] Return [facility] 04-13-2023 13:00-0500 Diastolic blood pressure 77 mm[Hg] [facility] 04-13-2023 13:00-0500 Heart rate 78 /min [facility] 04-13-2023 13:00-0500 [facility] 04-13-2023 13:00-0500 [facility] 04-13-2023 13:00-0500 Respiratory rate 16 /min [facility] 04-13-2023 13:00-0500 Systolic blood pressure 127 mm[Hg] [facility] 04-13-2023 12:13-0500 Heart rate 80 /min [facility] 04-13-2023 12:13-0500 SaO2% (BldA) [Mass fraction] 95 % [facility] 04-13-2023 12:12-0500 Body temperature 97.16 [degF] [facility] 04-13-2023 12:11-0500 Diastolic blood pressure 78 mm[Hg] [facility] 04-13-2023 12:11-0500 Mean blood pressure 94 mm[Hg] [facility] 04-13-2023 12:11-0500 Systolic blood pressure 125 mm[Hg] [facility] 04-13-2023 12:00-0500 [facility] 04-13-2023 12:00-0500 Promise to Return [facility] 04-13-2023 09:10-0500 Diastolic blood pressure 70 mm[Hg] [facility] 04-13-2023 09:10-0500 Heart rate 87 /min [facility] 04-13-2023 09:10-0500 Mean blood pressure 90 mm[Hg] [facility] 04-13-2023 09:10-0500 Respiratory rate 17 /min [facility] 04-13-2023 09:10-0500 Systolic blood pressure 130 mm[Hg] [facility] 04-13-2023 08:00-0500 SaO2% (BldA) [Mass fraction] 93 % [facility] 04-13-2023 07:29-0500 Heart rate 89 /min [facility] 04-13-2023 07:29-0500 SaO2% (BldA) [Mass fraction] 94 % [facility] 04-13-2023 07:29-0500 Mean blood pressure 88 mm[Hg] [facility] 04-13-2023 07:29-0500 Body temperature 97.88 [degF] [facility] 04-13-2023 05:00-0500 Blood Pressure Location [facility] 04-13-2023 05:00-0500 Heart rate 95 /min [facility] 04-13-2023 05:00-0500 Mean blood pressure 100 mm[Hg] [facility] 04-13-2023 00:18-0500 Blood Pressure Location [facility] 04-13-2023 00:18-0500 Body temperature 97.52 [degF] [facility] 04-12-2023 20:33-0500 Body temperature 97.34 [degF] [facility] 04-12-2023 20:33-0500 Mean blood pressure 88 mm[Hg] [facility] 04-12-2023 18:03-0500 Blood Pressure Location [facility] 04-12-2023 16:49-0500 Respiratory rate 22 /min [facility] 04-12-2023 15:00-0500 Respiratory rate 20 /min [facility] 04-12-2023 12:24-0500 gluc 88 mg/dL [facility] 04-12-2023 12:24-0500 gluc [facility] 04-12-2023 12:19-0500 Body temperature 97.7 [degF] [facility] 03-29-2023 15:30-0500 Body height 161.29 cm Jeremiah Reed Other [facility] [employer] Other 03-29-2023 15:30-0500 Body mass index (BMI) [Ratio] 37.14 kg/m2 Jeremiah Reed Other [employer] Other 03-29-2023 15:30-0500 Body weight 96.62 kg Jeremiah Reed Other [facility] [employer] Other 03-29-2023 15:30-0500 Diastolic blood pressure 85 mm[Hg] Jeremiah Reed Other [employer] Other 03-29-2023 15:30-0500 Systolic blood pressure 144 mm[Hg] Jeremiah Reed Other [employer] Other 06-21-2022 14:42-0500 Blood Pressure Location BRENDA MARIN [facility] Encounters Encounter Date Encounter Type Care Provider Facility Start: 06-05-2023 End: 06-05-2023 Lab Drop off BRENDA Poole MIAH [facility] Start: 06-05-2023 End: 06-05-2023 Patient encounter procedure BRENDA Poole MIAH [facility] Start: 04-30-2023 End: 04-30-2023 ambulatory Jeremiah Reed Other [employer] Other Start: 04-30-2023 Office outpatient vi sit 25 minutes Jeremiah Reed [facility] Start: 04-30-2023 Telephone encounter Jeremiah Reed [facility] Start: 04-17-2023 End: 04-17-2023 ambulatory Jeremiah Reed Other [employer] Other Start: 04-17-2023 Telephone encounter Jeremiah Reed [facility] Start: 04-13-2023 End: 04-13-2023 ambulatory Ray Fofana Other [employer] Other Start: 04-13-2023 Telephone encounter Ray Fofana [facility] Start: 04-12-2023 End: 04-13-2023 ambulatory Ehsan Blair Facility:[facility] Start: 04-12-2023 End: 04-13-2023 Observation Efrain Kurtz [facility] Start: 04-09-2023 End: 04-10-2023 ambulatory Drake Delatorre MD Facility:[facility] Start: 03-30-2023 End: 03-30-2023 ambulatory Jeremiah Reed Other [employer] Other Start: 03-30-2023 Telephone encounter Jeremiah Reed [facility] Start: 03-29-2023 End: 03-29-2023 ambulatory Jeremiah Reed Other [employer] Other Start: 03-29-2023 Transitional care manage srvc 14 day discharge Jeremiah Reed [facility] Start: 03-05-2023 End: 03-06-2023 [facility]ulatory [facility] Start: 02-05-2023 End: 02-06-2023 [facility]ulatory [facility] Start: 01-08-2023 End: 01-09-2023 ambulatory Drake Delatorre MD Facility:[facility] Start: 12-25-2022 End: 12-26-2022 ambulatory Drake Delatorre MD Facility:[facility] Start: 09-01-2022 End: 09-02-[address] JEREMIAH REED Facility:[facility] Start: 08-29-2022 End: 08-30-2022 ambulatory BARBARA WAGNERMIPATHNathan . Facility:[facility] Start: 08-21-2022 End: 08-22-[address] EHSAN MILLER Facility:[facility] Start: 08-10-2022 End: 08-11-2022 ambulatory BRENT MALDONADO Facility: Start: 06-21-2022 End: 06-22-2022 ambulatory [facility] MARIN [facility] Start: 06-21-2022 End: 06-21-2022 Patient encounter [facility] Start: 06-12-2022 End: 06-13-[address] EHSAN MILLER Facility:[facility] Start: 05-11-2022 End: 05-12-[address] FELISHA Gonzalez Facility:[facility] Start: 04-21-2022 End: 04-22-[address] [...] procedure Radha L Clinker Work Phone: [facility] Start: 08-21-2018 End: 08-21-2018 Patient encounter procedure Rahda L Clinker Work Phone: [facility] Start: 06-28-2018 End: 06-28-2018 Patient encounter procedure Radha L Clinker Work Phone: [facility] Procedures Date Procedure Procedure Detail Performing Clinician Start: 06-16-2016 Cystourethroscopy wi th dilation of urethral stricture BRENDA MARIN Appendectomy BRENDAPRATIMA SOLIMANRY Biopsy of breast BRENDA DAVE RRNathan Hysterectomy BRENDAPRATIMA SOLIMANRY Plan of Treatment Date Care Activity Detail Author Start: 06-05-2023 ambulatory Ambulatory Facility:[facility] Start: 10-26-2022 ambulatory Ambulatory Facility:[facility] Start: 01-12-2019 Influenza vaccination INFLUENZ A VACCINE (Season Ended) [facility] Start: 01-12-2018 Influenza vaccination INFLUENZA VACC INE (#1) [facility] Start: 02-10-2012 Pneumococcal vaccination PNEUM OCOCCAL VACCINE SERIES (1 of 2 - PCV13) [facility] Start: 1997 Protein mass conc COLON CANCER SCREENING DISCUSSION [facility] Start: 1997 Zoster vaccine hzv l derrell for subcutaneous use ZOSTER (SHINGLES) VACCINE (1 of 2) [facility] Start: 1987 Fasting lipid profile LIPID SCREENIN G [facility] Start: 1987 Protein mass conc MAMMOGRAM SC REENING DISCUSSION [facility] Start: 02-10-1968 Screening for malign ant neoplasm of cervix PAP SMEAR DISCUSSION [facility] Start: 1966 Third diphtheria, tetanus and acellular pertussis (DTaP) vaccination TDAP (ADULT) [facility] Start: 1965 Tetanus vaccination [facility] Start: 1947 Hepatitis C antibody , confirmatory test HEPATITIS C VIRUS SCREENING [facility] Start: 1947 Screening for osteoporosis DEXA SCAN DISCUSSION [facility] Immunizations Immunization Date Immunization Notes Care Provider Keiko scott 03-31-2021 SARS-CoV-2 (COVID-19 ) mRNA BNT-162b2 vax BRENDA MARIN [facility] 07-21-2020 SARS-CoV-2 (COVID-19 ) Ad26 vaccine, recombinant BRENDA MARIN [facility] 04-11-2020 influenza virus vaccine, unspecified formulation BRENDA MARIN [facility] 02-02-2011 influenza virus vaccine, unspecified formulation BRENAD MARIN [facility] Payers Date Payer Category Payer Medicare 2022 Unknown 1957 Medicare [id number] 1957 Unknown [id number] 1947 Unknown [id number] 2.16.84 0.1.251350.3.579.2.593 1947 Unknown [id number] 2.16.84 0.1.242123.3.579.2.593 1947 Unknown [id number] 2.16.84 0.1.285151.3.579.2.593 1947 Unknown [id number] 2.16.84 0.1.559754.3.579.2.593 1947 Unknown [id number] 2.16.84 0.1.320040.3.579.2.593 1947 Unknown [id number] 2.16.84 0.1.477844.3.579.2.593 1947 Unknown [id number] 2.16.84 0.1.334290.3.579.2.593 1947 Unknown [id number] 2.16.84 0.1.138589.3.579.2.593 1947 Unknown [id number] 2.16.84 0.1.871505.3.579.2.593 1947 Unknown [id number] 2.16.84 0.1.761075.3.579.2.593 1947 Unknown [id number] 2.16.84 0.1.855975.3.579.2.593 1947 Unknown [id number] 2.16.84 0.1.402455.3.579.2.593 1947 Unknown [id number] 2.16.84 0.1.315789.3.579.2.593 1947 Unknown [id number] 2.16.84 0.1.411738.3.579.2.593 1947 Unknown [id number] 2.16.84 0.1.977982.3.579.2.593 1947 Unknown [id number] 2.16.84 0.1.139773.3.579.2.593 1947 Unknown [id number] 2.16.84 0.1.147543.3.579.2.593 1947 Unknown [id number] 2.16.84 0.1.848438.3.579.2.593 1947 Unknown [id number] 2.16.84 0.1.750970.3.579.2.593 1947 Unknown [id number] 2.16.84 0.1.136743.3.579.2.593 1947 Unknown [id number] 2.16.84 0.1.540277.3.579.2.593 1947 Unknown [id number] 2.16. 840.1.663080.3.579.2.196 1947 Unknown [id number] 2.16. 840.1.916095.3.579.2.196 1947 Unknown [id number] 2.16. 840.1.680053.3.579.2.196 1947 Unknown [id number] 2.16. 840.1.249553.3.579.2.196 1947 Unknown [id number] 2.16. 840.1.829609.3.579.2.196 1947 Unknown [id number] 2.16.8 40.1.461796.3.579.2.727 1947 Unknown [id number] 2.16.8 40.1.006721.3.579.2.727 1947 Unknown [id number] 2.16.8 40.1.718224.3.579.2.727 Social History Date Type Detail Facility Tobacco smoking stat [facility] Unknown if ever smoked [facility] Sex Assigned At Not on file [facility] Start: 02-03-2021 End: 06-05-2023 Tobacco smoking status Ex-smoker (finding) [facility] Sex Assigned At Female [facility] Tobacco smoking status Never [facility] Functional Status Date Assessment Result Facility 06-05-2023 Functional Status N/A [facility] 04-12-2023 Functional Status N/A [facility] 04-12-2023 Functional Status [facility] 06-21-2022 Functional Status N/A [facility] Clinical Notes 01-12-2013 to 06-05-2023 Note Date & Type Note Facility 06-05-2023 Hospital Discharg e instructions Patient Education 06/05/2023 13:34:18 Urethral Stricture Urethral Stricture Urethral stricture is narrowing of the tube (urethra) that carries urine from the bladder out of the body. The urethra can become narrow due to scar tissue from an injury or infection. This can make it difficult to pass urine. In women, the urethra opens above the vaginal opening. In men, the urethra opens at the tip of the penis, and the urethra is much longer than it is in women. Because of the length of the male urethra, urethral stricture is much more common in men. This condition is treated with surgery. What are the causes? In both men and women, common causes of urethral stricture include: Urinary tract infection (UTI). Sexually transmitted infection (STI). Use of a tube placed into the urethra to drain urine from the bladder (urinary catheter). Urinary tract surgery. In men, common causes of urethral stricture include: A severe injury to the pelvis. Prostate surgery. Injury to the penis. In many cases, the cause of urethral stricture is not known. What increases the risk? You are more likely to develop this condition if you: Are male. Men who have had prostate surgery are at risk of developing this condition. Use a urinary catheter. Have had urinary tract surgery. What are the signs or symptoms? The main symptom of this condition is difficulty passing urine. This may cause decreased urine flow, dribbling, or spraying of urine. Other symptom of this condition may include: Frequent UTIs. Blood in the urine. Pain when urinating. Swelling of the penis in men. Inability to pass urine (urinary obstruction). How is this diagnosed? This condition may be diagnosed based on: Your medical history and a physical exam. Urine tests to check for infection or bleeding. X-rays. Ultrasound. Retrograde urethrogram. This is a type of test in which dye is injected into the urethra and then an X-ray is taken. Urethroscopy. This is when a thin tube with a light and camera on the end (urethroscope) is used to look at the urethra. How is this treated? This condition is treated with surgery. The type of surgery that you have depends on the severity of your condition. You may have: Urethral dilation. In this procedure, the narrow part of the urethra is stretched open (dilated) with dilating instruments or a small balloon. Urethrotomy. In this procedure, a urethroscope is placed into the urethra, and the narrow part of the urethra is cut open with a surgical blade inserted through the urethroscope. Open surgery. In this procedure, an incision is made in the urethra, the narrow part is removed, and the urethra is reconstructed. Follow these instructions at home: Take hoti-tgn-isumoss and prescription medicines only as told by your health care provider. If you were prescribed an antibiotic medicine, take it as told by your health care provider. Do not stop taking the antibiotic even if you start to feel better. Drink enough fluid to keep your urine pale yellow. Keep all follow-up visits as told by your health care provider. This is important. Contact a health care provider if: You have signs of a urinary tract infection, such as: ?Frequent urination or passing small amounts of urine frequently. ?Needing to urinate urgently. ?Pain or burning with urination. ?Urine that smells bad or unusual. ?Cloudy urine. ?Pain in the lower abdomen or back. ?Trouble urinating. ?Blood in the urine. ?Vomiting or being less hungry than normal. ?Diarrhea or abdominal pain. ?Vaginal discharge, if you are female. Your symptoms are getting worse instead of better. Get help right away if: You cannot pass urine. You have a fever. You have swelling, bruising, or discoloration of your genital area. This includes the penis, scrotum, and inner thighs for men, and the outer genital organs (vulva) and inner thighs for women. You develop swelling in your legs. You have difficulty breathing. Summary Urethral stricture is narrowing of the tube (urethra) that carries urine from the bladder out of the body. The urethra can become narrow due to scar tissue from an injury or infection. This condition can make it difficult to pass urine. This condition is treated with surgery. The type of surgery that you have depends on the severity of your condition. Contact a health care provider if your symptoms get worse or you have signs of a urinary tract infection. This information is not intended to replace advice given to you by your health care provider. Make sure you discuss any questions you have with your health care provider. Document Revised: 03/07/2022 Document Reviewed: 03/07/2022 [employer] Patient Education 2022 [employer]. Follow Up Care 06/21/2022 15:14:52 With:CEZAR BERNAL, Cayden Hollins, URL Address: [facility] [employer] [address] [place] [id number]- When: Unknown [facility] Evaluation + Plan note Diagnostic Tests PendingUrine Culture 06/05/23 [facility] 04-30-2023 Evaluation note Encounter Date Diagnosis Assessment Notes Apr, Generalized weakness (ICD-10 - R53.1) Continue PT w HH as previously established Apr, COPD, moderate (ICD-10 - J44.9) Pt states it is improved. Continue prescribed meds Apr, Essential (primary) hypertension (ICD-10 - I10) Blood pressure remains well controlled at this time. Denies cardiac symptoms. Shows no signs or symptoms or poor control. Patient to continue with above medication and we will continue to monitor. Advised to pay attention to body and symptoms. Any developing patterns. Stay well hydrated. [employer] Other 12-01-2023 NoteChief Complaint pt arrives via [facility] after being found outside by a neighbor without a shirt on. pt is a/o to self and place, not time. FSBS upon arrival 88. Pt was recently treated for UTI @[facility]. pt. denies fall, was found sitting down. History of Present Illness 78-year-old female with PMH reformed smoker, HTN, anxiety, depression, peripheral neuropathy, GERD, OAB, obesity. -Patient presented to the ED secondary to confusion. -Per ED physician patient was recently in [facility] and treated for a UTI on antibiotic, isunclear if she finished this. Patient is currently [...] son who states she was confused hence herpresentation to the ED. Per son and dgt. [...] her baseline she is typically ANO x 4and lives independently without concern. Mental status: Pleasant [...] Lymph Auto: 9.7 % Low (04/12/23 12:53:00) Independence Auto: 7.8 % (04/12/23 12:53:00) Eos Auto: 0.1 % (04/12/23 12:53:00) Basophil Auto: 0.4 % (04/12/23 12:53:00) Neutro Absolute: 12.4 E9/L High (04/12/23 12:53:00) Lymph Absolute: 1.5 E9/L (04/12/23 12:53:00) Independence Absolute: 1.2 E9/L High (04/12/23 12:53:00) Eos [...] 88 mg/dL (04/12/23 12:23:00) POC Device SN: [id number] (04/12/23 12:23:00) POC User ID: (more content not included)...[facility]:Result Comment: Electronically Signed By: Radha TAYLOR\.br\Date and Time Signed: 04/12/23 16:29 EST\.br\Electronically Co-Signed By: Radha TAYLOR\.br\Date and Time Co-Signed: 04/12/23 16:37 EST\.br\Electronically Co-Signed By: Radha TAYLOR\.br\Date and Time Co-Signed: 04/12/23 16:58 EST\.br\Electronically Co-Signed By: Efrain Kurtz MD\.br\Date and Time Co-Signed: 04/13/23 16:43 [id number] NoteAdmission and Discharge Information Admitting Physician - Efrain Kurtz MD Consulting Physician - Ehsan Blair MD Admitting Diagnoses: Discharge Diagnoses 1. AMS (altered mental status), 04/12/2023 Pt. alert and oriented x 4 spheres this morning, independent in all of her activities, she is engaging in conversation, daughter at bedside, she is at her baseline. Patient will follow-up for ongoingneurology evaluation in addition to following up with [...] urethral stricture (06/16/2016), Appendectomy, Biopsy of breast,Hysterectomy. Hospital Course 78-year-old female with PMH reformed [...] symptoms have significantly improved and/or resolved. Patient iseating and drinking without complaints, denies being SOB, chest pain, pressure, palpitations or difficulty with voiding.Patient is eager to be discharged to home. --Other chronic medical conditions as outlined in note. Refer to d/c plan below: -Case reviewed and discussed with Dr. Kurtz who is in agreement with current d/c plan. Case willbe reviewed and discussed with PCP or quality control industrial engineer MD once the hospital still operator helper is able to reach him/her. I spent [...] made to ensure accuracy, however, inadvertently computerized register repairer mistakes may be present. Significant Findings CT [...] spine, with routine reconst (more content not included)...[facility] CenterComment [facility] above:Result Comment: Electronically Signed By: Radha TAYLOR\.br\Date and Time Signed: 04/13/23 10:54 EST\.br\Electronically Co-Signed By: Mohit TAYLOR.br\Date and Time Co-Signed: 04/13/23 10:57 EST\.br\Electronically Co-Signed By: WALLS AGACNP-BC, Radha\.br\Date and Time Co-Signed: 04/13/23 10:58 EST\.br\Electronically Co-Signed By: TITI MITCHELL, Radha\.br\Date and Time Co-Signed: 04/13/23 10:59 EST\.br\Electronically Co- Signed By: TITI MITCHELL, Radha\.br\Date and Time Co-Signed: 04/13/23 13:55 EST\.br\Electronically Co-Signed By: Tessie BERNAL, Efrain\.br\Date and Time Co- Signed: 04/13/23 16:37 [id number] Evaluation + Plan noteExtracted from: Title:Discharge Note Author:Lauren TAYLOR Date:04/13/23 Hemodynamically [...] cap(s), Oral, Daily With When Contact Information [facility] Additional Instructions: Call for followup appointment for anxiety/depression care. Gerald Nolasco Within 1 to [address], [place] [address]- Business (1) Additional Instructions: JEREMIAH REED Within 2 to 4 days [facility] [place] [address]- Business (1) Additional Instructions: Confusion Extracted from: Title:Consult Note-neurology Author:Rik ALVARES N ichdominick Date:04/13/23 ASSESSMENT: 1. Acute confusional state. May [...] deep vein thrombosis (DVT) prophylaxis (Z79.899: Other custodial (current) drug therapy) Depression, unspecified (F32.A: Depression, unspecified) Extracted from: Title:ED Note Author:Abran Holguin DO:1 06/12/22 1. AMS (altered mental statu s) (R41.82: [...] deep vein thrombosis (DVT) prophylaxis (Z79.899: Other buttermaker continuous churn (current) drug therapy) Depression, unspecified (F32.A: Depression, [...] View Extracted from: Title:Admission H & P Author:Divine TAYLOR enee Date:04/12/23 1. AMS (altered mental statu [...] Cr - unknown - awaiting records from [facility] -Renal US & PVR - if [...] deep vein thrombosis (DVT) prophylaxis (Z79.899: Other buttermaker continuous churn (current) drug therapy) -Heparin sq with early [...] made to ensure accuracy, however, inadvertently computerized register repairer mistakes may be present. Future Appointments Appointment Date:06/05/2023 01:00:00 PM Scheduled Provider:BRENDA MARIN PA-C Location:[facility] Appointment Type:URO Office Visit [facility]12-01-2023 NoteChief Complaint AMS Reason for [...] Patient is alert and is oriented to [employer] and April and said 1921 but corrected [...] deep vein thrombosis (DVT) prophylaxis (Z79.899: Other buttermaker continuous churn (current) drug therapy) Depression, unspecified (F32.A: Depression, [...] 2 tab(s), Oral, q6hr, PRN Afrin 0.05% Mcdaniel, 2 s (more content not included)...[facility] Comment on above:Result Comment: Electronically [...] friend for help if needed. Medicines Take vabx-brh-jbgokvh and prescription medicines only as told by [...] provider. Document Revised: 08/24/2020 Document Reviewed: 08/24/2020 [employer] Patient Education 2022 [employer]. Follow Up Care 04/12/2023 12:15:50 With:Ehsan Blair MD, NEU Address: [place] [id number]- When:1 to 2 weeks Comments:This office is closed on Fridays. Please call the office on Sunday April 16, 2023 for a follow upappiontment. Thank you. With:JEREMIAH REED Address: [address] [place] [id number] [facility] (1) When:2 to 4 days Comments:Call for followup appointment With:[facility] Address:Unknown When: Unknown Comments:Call for followup appointment for anxiety/depression care. [facility]12-01-2023 NotePT Evaluation done this date. Pt. with on AM-PAC this date. Recommend she use FWW for gait aswith cane she reaches for objects to hang onto with other hand. Will likely benefit from home health PT.[facility]11-17-2023 Evaluation note* Encounter Date Diagnosis Assessment Notes Treatment Notes Treatment Clinical Notes Mar, Colon cancer screening (ICD-10 - Z12.11) [employer] Other 11-16-2023 Evaluation note* Encounter Date Diagnosis Assessment Notes Treatment Notes Treatment Clinical Notes Mar, Generalized weakness (ICD-10 - R53.1) Followup as scheduled w ortho and PT Mar, COPD, moderate (ICD-10 - J44.9) continue present medication reviewed ER report from observation status [employer] Other 03-30-2023 NoteCONSULTATION CONSULTATION DATE: 08/10/2022 TO: [...] weeks' time or sooner if needed. [facility] [id number] NoteCONSULTATION PROCEDURE DATE: 08/10/2022 PROCEDURE: Right suprascapular [...] reduction in her pain symptoms post procedurally.[facility] [id number] Hospital Discharge instructions Patient Education 06/21/2022 14:35:24 [...] fried and sweet foods. General instructions Take zqje-qet-dzfgyea and prescription medicines only as told by [...] 02/24/2010 Document Revised: 08/21/2019 Document Reviewed: 05/16/2018 [employer] Patient Education 2020 [employer] Follow Up Care 05/19/2021 14:10:29 With:BRENDA MARIN PA-C, URL Address: [address] [address] When: Unknown [facility] 12-29-2022 NoteCONSULTATION CONSULTATION DATE: 05/11/2022 HISTORY [...] the diclofenac. 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 [facility] [id number] History general Narrative - Reported* Type Description Date Medical History Chronic back pain Medical History HTN Medical History anxiety Medical History DJD Medical History osteoporosis Surgical History Lumbar laminectomy and fusion Surgical History Hysterectomy (spared L ovary) Surgical History Landaverde's neuroma Hospitalization History For surgery as above Hospitalization History [facility] 03/2023 [employer] Other Evaluation + Plan note Future Appointments Appointment Date:06/26/2023 02:30:00 PM Scheduled Provider:BRENDA MARIN PA-C Location:[facility] Appointment Type:URO Office Visit [facility] evaluation noteNo InformationNortSt. [facility] [employer] Other Hospital course Narrative No data available for this section [facility] Hospital Discharge instructions No data available for this section [facility] HospitalProgress note No data available for this section [facility] Summary Purpose Family History No Family History Records FoundNo Family History Records Found No data available for this section No Family History Records Found No data available for this section No data available for this section Advance Directives No Advanced Directives Records FoundNo Advanced Directives Records FoundNo Advanced Directives Records Found Additional Source Comments Reason for Visit (unrecogniz ed section and content) Reason Comments Medication Refill Patient Care team informatio n (unrecognized section and content) Personnel Name: JEREMIAH REED MD Address: Address: [address] [place] [address] Personnel Name: JEREMIAH REED MD Address: Address: [address] [place] [address] Personnel Name: JEREMIAH REED MD Address: Address: [address] [place] [address] Personnel Name: REED MD, JEREMIAH Address: Address: [address] [place] [address] [place], [place] [address] INFORMATION SOURCE (unrecogn ized section and content) DATE CREATED AUTHOR 09/08/[address] [facility] DATE CREATED AUTHOR AUTHOR'S ORGANIZ ATION 04/13/2023 [facility] DATE CREATED AUTHOR AUTHOR'S ORGANIZ ATION 05/15/2023 [facility] FOR RECORDS PERTAINING TO PATIENTS WHO ARE [...] BE BASED ON THE PRIMARY CLINICAL RECORDS. [facility] [employer] [facility]. provides no warranty or guarantee of the accuracy or completeness of information in this document.
--- NOTE | 2023-06-07 13:06 | CT_ITS ---
[address] [address] Patient Name: AARON JJ MRN: [id number] date: 1945 Sex: F Assigned Patient Location: CT Current Patient Location: CT Accession/Order Number: [id number] Exam Date: 06/07/2023 12:55 Report Date: 06/07/2023 13:53 At the request of: LEANDRA GARNICA Procedure: CT lung screening low-dose EXAMINATION: CT lung screening low-dose HISTORY: History Of Tobacco Dependence COMPARISON: 06/12/2022 TECHNIQUE: Axial, Coronal, and Sagittal images were created without the administration of IV contrast material. Dose reduction techniques were achieved by using automated exposure control and/or adjustment of mA and/or kV according to patient size and/or use of iterative reconstruction technique. FINDINGS: LUNGS: Moderate centrilobular emphysema with an upper lobe predominance. Scattered subcentimeter nodules, stable both in number and size from the prior exam. No new focal parenchymal infiltrate. Minimal linear opacity in the left lower lobe, stable, chronic scarring. PLEURA: No mass, effusion, or pneumothorax. VASCULATURE: No abnormality. SOUTH: No mass or pathologic adenopathy. MEDIASTINUM: [Thyroid nodule. No pathologic lymphadenopathy CARDIAC: No enlargement or pericardial effusion. Mild coronary atherosclerosis CORONARY ARTERIES: AORTA: No aortic aneurysm CHEST WALL: No mass or axillary adenopathy BONES: No bone lesion or fracture. Moderate degenerative changes with dextrocurvature LIMITED ABDOMEN: Moderate sliding-type hiatal hernia OTHER: Negative. CT/CT lung screening low-dose IMPRESSION: LUNG SCREENING: Lung-RADS Category 2- Benign Appearance or Behavior. Nodules with a very low likelihood of becoming a clinically active cancer due to size or lack of growth. 2. Continue annual screening with LDCT in 12 months. Electronically authenticated by: BRENT BERMAN Date: 06/07/2023 13:53
== END 2023-06-07 12:49 | disposition home or self-care (01) ==
LOC: CT 12:48
PROVIDERS: PCP Family Medicine; Visit Provider Internal Medicine
DX: Z87.891 Personal history of nicotine dependence (principal)
CPT/HCPCS: 71271

== ENCOUNTER 2023-07-18 13:03 | Outpatient (OUT) | payer MEDICARE, OTHER, SELFPAY ==
--- NOTE | 2023-07-18 13:38 | P.CN_ITS ---
Consult Note: HPI Data of Consult Patient: known to practice within the last 3 years Requesting Physician: Sheri Lozano NP Primary Care Provider: Tierra Newell MD Consult Narrative Reason for consult: f/u Narrative: Jing Lewis a pleasant 78 year old female presents for evaluation and management of chronic neck pain. Patient recently underwent Right C5-6, C6-7 medial branch thermal RFA with 50% pain relief and functional improvement ongoing. Today rating pain 5/10 in neck and right shoulder. Patient denies numbness tingling or weakness of RUE. Patient reports deep ache. Patient recently evaluated by Dr Malhotra, received right subacromial bursa injection with no ongoing improvement. cc:: CC: Sheri Lozano NP Review of Systems 2 ROS0 Status of ROS 10 or more systems reviewed and unremark able except as noted in history and below Musculoskeletal Reports: neck pain, extremity pain and joint pain PFSH PFSH Medical History COPD (chronic obstructive pulmonary disease) ?J44.9 - Chronic obstructive pulmonary disease, unspecified (ICD-10) GERD (gastroesophageal reflux disease) ?K21.9 - Gastro-esophageal reflux disease without esophagitis (ICD-10) Chronic pain ?G89.29 - Other chronic pain (ICD-10) Anxiety ?F41.9 - Anxiety disorder, unspecified (ICD-10) HTN (hypertension) ?I10 - Essential (primary) hypertension (ICD-10) Chronic prescription opiate use ?Z79.891 - 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 of opiate analgesic (ICD-10) Shoulder arthritis ?M19.019 - Primary osteoarthritis, unspecified shoulder (ICD-10) Cervical spondylosis ?M47.812 - Spondylosis without myelopathy or radiculopathy, cervical region (ICD-10) Surgical History History of lumpectomy of left breast ?Z98.890 - Other specified postprocedural states (ICD-10) History of back surgery ?Z98.890 - Other specified postprocedural states (ICD-10) History of hysterectomy ?Z90.710 - Acquired absence of both cervix and uterus (ICD-10) Family History Mother Family history of cancer Father Family history of stroke Grandfather Family history of stroke Social History Within the past year, how often did you have a drink containing alcohol: never Score interpretation: A score less than 3 is consistent with normal alcohol consumption. Smoking status: Former smoker Non-prescribed substance use: denies use Previous occupational history: retired Highest level of school completed/degree received: high school graduate Are you now , , , , never or living with a partner: Little interest or pleasure in doing things: not at all Feeling down, depressed, or hopeless: not at all Feel stressed/tense/nervous/anxious/difficulty sleeping: not at all Do you think of yourself as: straight/heterosexual Gender Identity: female Meds Home Medications and Allergies Home Medications Medication Instructions Recorded Confirmed Type OCUVITE 1 tab PO DAILY 10/26/22 04/09/23 History amlodipine 10 mg tablet 10 mg PO DAILY 10/26/22 04/09/23 History buspirone 10 mg tablet 10 mg PO BID 10/26/22 04/09/23 History cholecalciferol (vitamin D3) 50 50 mcg PO DAILY 10/26/22 04/09/23 History mcg (2,000 unit) capsule gabapentin 600 mg tablet 600 mg PO TID 10/26/22 04/09/23 History multivitamin 1 tab PO DAILY 10/26/22 04/09/23 History nortriptyline 25 mg capsule 25 mg PO DAILY 10/26/22 04/09/23 History omeprazole 40 mg capsule,delayed 40 mg PO DAILY 10/26/22 04/09/23 History release naproxen sodium 220 mg capsule 440 mg PO BID PRN pain 02/05/23 04/09/23 History (Aleve) oxycodone-acetaminophen 5 mg-325 1 tab PO BID PRN pain #60 tabs 02/21/23 04/09/23 Rx mg tablet (Percocet) calcium carbonate 600 mg calcium 600 mg PO DAILY 03/21/23 04/09/23 History (1,500 mg) tablet (Calcium) glucosamine HCl 1 tab PO .QD 03/21/23 04/09/23 History melatonin 1 tab PO .QHS PRN sleep 03/21/23 04/09/23 History meloxicam 15 mg tablet 7.5 mg PO DAILY 03/21/23 04/09/23 History solifenacin 10 mg tablet 10 mg PO DAILY 03/21/23 04/09/23 History baclofen 10 mg tablet 10 mg PO TID PRN muscle spasm #270 03/22/23 04/09/23 Rx tabs nitrofurantoin 100 mg PO BID 3 days #6 caps 03/22/23 04/09/23 Rx monohydrate/macrocrystals 100 mg capsule (Macrobid) gabapentin 600 mg tablet 600 mg PO TID #270 tabs 04/09/23 Rx oxycodone-acetaminophen 5 mg-325 1 tab PO BID PRN pain #60 tabs 04/09/23 Rx mg tablet (Percocet) nortriptyline 25 mg capsule 25 mg PO DAILY #30 caps 05/09/23 Rx oxycodone-acetaminophen 5 mg-325 1 tab PO BID PRN pain #60 tabs 05/09/23 Rx mg tablet (Percocet) gabapentin 300 mg capsule 300 mg PO TID #270 caps 06/07/23 Rx oxycodone-acetaminophen 5 mg-325 1 tab PO BID PRN pain #60 tabs 06/07/23 Rx mg tablet (Percocet) oxycodone-acetaminophen 5 mg-325 1 tab PO BID PRN pain #14 tabs 07/09/23 Rx mg tablet (Percocet) oxycodone-acetaminophen 5 mg-325 1 tab PO TID PRN pain #60 tabs 07/09/23 Rx mg tablet (Percocet) Allergies Allergy/AdvReac Type Severity Reaction Status Date / Time No Known Drug Allergies Allergy Verified 04/09/23 12:20 Exam Constitutional Documenting provider has reviewed patient's vital signs: yes Common normals: no apparent distress, oriented x3, healthy appearing, alert and well nourished General appearance: cooperative HENMT Common normals: normocephalic, hearing grossly normal bilaterally and moist oral mucous membranes Head and scalp: normocephalic Eye Common normals: PERRL Pupil: PERRL Neck & C-Spine Common normals: full ROM General: normal visual inspection Other: axial neck pain improved, patient continues to have right shoulder pain and weakness of right arm negative spurlings sensation intact and equal to BUE Chest Common normals: inspection of chest normal Respiratory Common normals: normal respiratory effort, no retractions and no use of accessory muscles Extremity Right upper extremity: shoulder joint (pain and limited ROM, tender to touch) Other: limited ROM with abduction and overhead extension, unable to perform scratch test due to pain pain and tenderness to below noted areas Extremity image (front): 2 1. 2. Extremity image (back): 2 1. 2. Neuro Common normals: oriented x3, CN's II-XII intact bilaterally, moves all extremities, no focal motor deficits, no sensory deficits noted and deep tendon reflexes 2+ bilaterally Sensorium/orientation: alert Motor exam: strength 5/5 throughout and no movement abnormalities noted Psych Common normals: mental status grossly normal, thought process normal, cooperative, affect normal, speech normal and activity/motor behavior normal Speech: normal speech Thought process: normal thought process Results Additional Findings Additional findings: I have checked an OARRS report on this patient today and there are no aberrancies noted in the prescribing history.?? A drug screen was completed and reviewed within the last year, and if there has not been a drug screen completed we ordered one today to monitor higher risk, state monitored pain medication use. As part of providing excellent, safe, comprehensive care, the following was completed at our patient's visit: 1. A medication reconciliation and review to ensure accurate knowledge of current/active medications, including asking our patients to inform us about any vpit-ktr-veldtyi medications or herbal remedies/nutritional supplements/alternative remedies. 2. A review to specifically ensure our patients have had annual screening for: elevated body mass index (BMI), tobacco use, screening for depression, and screening for unhealthy alcohol use. When screening is concerning, patients are provided with education and the specific recommendation to discuss the concerning health issue and treatment options with their primary care provider. Assessment and Plan Assessment and Plan (1) Cervical spondylosis: (2) Cervical radiculopathy: (3) Primary osteoarthritis, right shoulder: (4) Tendinopathy of right shoulder: Plan update cervical MRI without contrast for chronic neck pain and cervical radiculopathy, essential for injection therapy plan decrease baclofen to 5mg TID PRN myofascial pain can take gabapentin 300mg AM and 600mg HS continue nortriptyline 35mg hs continue percocet 5-325mg BID PRN moderate to severe pain risks vs benefits of current medication regimen reviewed and discussed, patient continues to find functional improvement and pain relief with current regimen
== END 2023-07-18 13:04 | disposition home or self-care (01) ==
LOC: PM 13:03
PROVIDERS: PCP Family Medicine; Visit Provider Nurse Practitioner
DX: M47.812 Spondylosis without myelopathy or radiculopathy, cervical region (principal); M54.12 Radiculopathy, cervical region; M19.011 Primary osteoarthritis, right shoulder
CPT/HCPCS: G0463

== ENCOUNTER 2023-08-13 12:24 | Outpatient (OUT) | payer MEDICARE, OTHER, SELFPAY ==
--- NOTE | 2023-08-13 12:30 | MR_ITS ---
The [address] [address] Patient Name: AARON JJ MRN: [id number] date: 1945 Sex: F Assigned Patient Location: MRI Current Patient Location: Accession/Order Number: [id number] Exam Date: 08/13/2023 12:38 Report Date: 08/13/2023 14:49 At the request of: JUAN ANTONIO QUEVEDO Procedure: MR cervical spine wo con EXAM: MR cervical spine wo con REASON FOR EXAM: cervical radiculopathy. TECHNIQUE: Multiplanar, multisequence imaging of the cervical spine was performed without contrast COMPARISON: Radiographs 09/01/2022. FINDINGS: Study mildly dated by motion. Limited evaluation the posterior fossa is unremarkable. The visualized spinal cord demonstrates grossly normal caliber and signal. Unchanged alignment of the cervical spine. Vertebral body heights and facet alignments are maintained. No acute or aggressive osseous abnormality identified. Limited evaluation of the paravertebral soft tissues is without acute or suspicious abnormality. C2-C3: Minimal broad-based disc bulge without severe spinal canal or neural foraminal stenosis. C3-C4: Broad-based disc bulge with mild spinal canal stenosis. Moderate to severe bilateral neural foraminal stenosis, left greater than right secondary to disc osteophyte complex, uncovertebral degeneration and facet arthropathy. C4-C5: Broad-based disc bulge with mild spinal canal stenosis. Moderate to severe bilateral neural foraminal stenosis secondary to disc osteophyte complex, uncovertebral degeneration and facet arthropathy. C5-C6: Broad-based disc bulge with moderate spinal canal stenosis. Severe bilateral neural foraminal stenosis secondary to disc osteophyte complex, uncovertebral degeneration and facet arthropathy. C6-C7: Diffuse broad-based disc bulge with moderate to severe spinal canal stenosis. Severe bilateral neural foraminal stenosis, left greater than right secondary to disc osteophyte complex, uncovertebral degeneration and facet arthropathy. C7-T1: Minimal broad-based disc bulge without severe spinal canal stenosis. Moderate bilateral neural foraminal stenosis secondary to uncovertebral degeneration and facet arthropathy. MR/MR cervical spine wo con IMPRESSION: 1. Moderate to severe multilevel degenerative disc the facet arthropathy throughout the cervical spine as described above. Spinal canal stenosis most significant at the C6-C7 level. Electronically authenticated by: JUDY POOLE Date: 08/13/2023 14:49
== END 2023-08-13 12:25 | disposition home or self-care (01) ==
LOC: MRI 12:24
PROVIDERS: PCP Family Medicine; Visit Provider Nurse Practitioner
DX: M54.12 Radiculopathy, cervical region (principal); M50.30 Other cervical disc degeneration, unspecified cervical region
CPT/HCPCS: 72141

== ENCOUNTER 2023-08-30 12:23 | Outpatient (OUT) | payer MEDICARE, OTHER, SELFPAY ==
--- NOTE | 2023-08-30 12:33 | PM.CN ---
Consult Note: HPI Data of Consult Patient: known to practice within the last 3 years Requesting Physician: Sheri Lozano NP Primary Care Provider: Tierra Newell MD Consult Narrative Reason for consult: f/u Narrative: Jing Hoffmann a pleasant 78 year old female presents for evaluation and management of chronic neck and low back pain. Patient reporting moderate to severe low back pain without radiculopathy, greater than 3 months unresponsive to HEP and conservative medications. Patient has a hx of successful lumbar RFAs. Most recently underwent cervical MRI, findings below. Patient reports her low back pain is severe and more bothersome than her neck. Pain today 5/10 aching sharp increasing to 8/10 with activity. cc:: CC: Sheri Lozano NP Review of Systems ROS Status of ROS 10 or more systems reviewed and unremarkable except as noted in history and below Musculoskeletal Reports: back pain, neck pain, extremity pain and joint pain PFSH PFSH Medical History COPD (chronic obstructive pulmonary disease) ?J44.9 - Chronic obstructive pulmonary disease, unspecified (ICD-10) GERD (gastroesophageal reflux disease) ?K21.9 - Gastro-esophageal reflux disease without esophagitis (ICD-10) Chronic pain ?G89.29 - Other chronic pain (ICD-10) Anxiety ?F41.9 - Anxiety disorder, unspecified (ICD-10) HTN (hypertension) ?I10 - Essential (primary) hypertension (ICD-10) Chronic prescription opiate use ?Z79.891 - roasterman (current) use of opiate analgesic (ICD-10) Shoulder arthritis ?M19.019 - Primary osteoarthritis, unspecified shoulder (ICD-10) Cervical spondylosis ?M47.812 - Spondylosis without myelopathy or radiculopathy, cervical region (ICD-10) Surgical History History of lumpectomy of left breast ?Z98.890 - Other specified postprocedural states (ICD-10) History of back surgery ?Z98.890 - Other specified postprocedural states (ICD-10) History of hysterectomy ?Z90.710 - Acquired absence of both cervix and uterus (ICD-10) Family History Mother Family history of cancer Father Family history of stroke Grandfather Family history of stroke Social History Within the past year, how often did you have a drink containing alcohol: never Score interpretation: A score less than 3 is consistent with normal alcohol consumption. Smoking status: Former smoker Non-prescribed substance use: denies use Previous occupational history: retired Highest level of school completed/degree received: high school graduate Are you now , , , , never or living with a partner: Little interest or pleasure in doing things: not at all Feeling down, depressed, or hopeless: not at all Feel stressed/tense/nervous/anxious/difficulty sleeping: not at all Do you think of yourself as: straight/heterosexual Gender Identity: female Meds Home Medications and Allergies Home Medications ?Medication ?Instructions ?Recorded ?Confirmed ?Type OCUVITE 1 tab PO DAILY 10/26/22 04/09/23 History amlodipine 10 mg tablet 10 mg PO DAILY 10/26/22 04/09/23 History cholecalciferol (vitamin D3) 50 50 mcg PO DAILY 10/26/22 04/09/23 History mcg (2,000 unit) capsule multivitamin 1 tab PO DAILY 10/26/22 04/09/23 History nortriptyline 25 mg capsule 25 mg PO DAILY 10/26/22 04/09/23 History omeprazole 40 mg capsule,delayed 40 mg PO DAILY 10/26/22 04/09/23 History release naproxen sodium 220 mg capsule 440 mg PO BID PRN pain 02/05/23 04/09/23 History (Aleve) oxycodone-acetaminophen 5 mg-325 1 tab PO BID PRN pain #60 tabs 02/21/23 04/09/23 Rx mg tablet (Percocet) calcium carbonate (Calcium 600) 600 mg PO DAILY 03/21/23 04/09/23 History melatonin 1 tab PO .QHS PRN sleep 03/21/23 04/09/23 History meloxicam 15 mg tablet 7.5 mg PO DAILY 03/21/23 04/09/23 History solifenacin 10 mg tablet 10 mg PO DAILY 03/21/23 04/09/23 History nitrofurantoin 100 mg PO BID 3 days #6 caps 03/22/23 04/09/23 Rx monohydrate/macrocrystals 100 mg capsule (Macrobid) gabapentin 300 mg capsule 300 mg PO TID #270 caps 06/07/23 Rx baclofen 10 mg tablet 5 mg PO TID PRN muscle spasm 07/19/23 07/19/23 History oxycodone-acetaminophen 5 mg-325 1 tab PO BID PRN pain #60 tabs 08/13/23 Rx mg tablet (Percocet) Allergies Allergy/AdvReac Type Severity Reaction Status Date / Time No Known Drug Allergies Allergy Verified 04/09/23 12:20 Exam Constitutional Documenting provider has reviewed patient's vital signs: yes Common normals: no apparent distress, oriented x3, healthy appearing, alert and well nourished General appearance: cooperative HENMT Common normals: normocephalic, hearing grossly normal bilaterally and moist oral mucous membranes Head and scalp: normocephalic Eye Common normals: PERRL Pupil: PERRL Neck & C-Spine Common normals: full ROM General: normal visual inspection Cervical spine: pain with cervical ROM Other: axial neck pain improved, patient continues to have right shoulder pain and weakness of right arm negative spurlings sensation intact and equal to BUE Chest Common normals: inspection of chest normal Respiratory Common normals: normal respiratory effort, no retractions and no use of accessory muscles Back & Pelvis Lumbar spine/lower back: ROM limited, pain with ROM and straight leg raise negative bilaterally Sacroiliac joints: SI joints normal Extremity Common normals: normal to inspection Right upper extremity: shoulder joint (pain and limited ROM, tender to touch) Other: limited ROM with abduction and overhead extension, unable to perform scratch test due to pain pain and tenderness to below noted areas Neuro Common normals: oriented x3, CN's II-XII intact bilaterally, moves all extremities, no focal motor deficits, no sensory deficits noted and deep tendon reflexes 2+ bilaterally Sensorium/orientation: alert Motor exam: strength 5/5 throughout and no movement abnormalities noted Psych Common normals: mental status grossly normal, thought process normal, cooperative, affect normal, speech normal and activity/motor behavior normal Speech: normal speech Thought process: normal thought process Results Imaging Cervical MRI: Attestation: I have reviewed the pertinent imaging results. Radiologist's impression: C2-C3: Minimal broad-based disc bulge without severe spinal canal or neural foraminal stenosis. C3-C4: Broad-based disc bulge with mild spinal canal stenosis. Moderate to severe bilateral neural foraminal stenosis, left greater than right secondary to disc osteophyte complex, uncovertebral degeneration and facet arthropathy. C4-C5: Broad-based disc bulge with mild spinal canal stenosis. Moderate to severe bilateral neural foraminal stenosis secondary to disc osteophyte complex, uncovertebral degeneration and facet arthropathy. C5-C6: Broad-based disc bulge with moderate spinal canal stenosis. Severe bilateral neural foraminal stenosis secondary to disc osteophyte complex, uncovertebral degeneration and facet arthropathy. C6-C7: Diffuse broad-based disc bulge with moderate to severe spinal canal stenosis. Severe bilateral neural foraminal stenosis, left greater than right secondary to disc osteophyte complex, uncovertebral degeneration and facet arthropathy. C7-T1: Minimal broad-based disc bulge without severe spinal canal stenosis. Moderate bilateral neural foraminal stenosis secondary to uncovertebral degeneration and facet arthropathy. Assessment and Plan Assessment and Plan (1) Lumbar spondylosis: (2) Cervical spondylosis: (3) Cervical radiculopathy: (4) Primary osteoarthritis, right shoulder: (5) Tendinopathy of right shoulder: (6) Chronic prescription opiate use: Assessment and Plan: I feel these medications are improving the patient's quality of life and allow them to tolerate activities of daily living as well as participate in recreational activity.? The patient does not report intolerable side effects. The patient is NOT opioid naive and non-pharmacologic and non-opioid treatment has failed to significantly relieve the patient's pain and improve functionality. The patient has a diagnosis that is related to a somatic or visceral pain etiology. ? ?? I reviewed with the patient the potential risks and side effects with the use of? opioid medications including but not limited to respiratory depression,? sedation, and even . I verified the patient has access to naloxone should? these effects occur. I advised the patient to avoid the use of any other? sedation substances including alcohol, THC, and benzodiazepines while? taking opioid medications due to the risk of compounding side effects and? detrimental outcomes. I reviewed the [employer], pain treatment agreement, urine? drug screen, and opioid start talking forms. The patient was advised to let? their family know they had Naloxone in case they would need to administer? the medication.? ?? A drug screen was completed within the last year, and no aberrancies were noted regarding their use of controlled substances. The patient understands they are subject to the terms and conditions of the pain contract that they have signed. ? ?? I have checked an [facility] report on this patient today and there are no aberrancies noted in the prescribing history.? Plan cervical MRI reviewed with patients, likely order right C5-6 C6-7 TFESI but I would like Dr Delatorre to review first bilateral L4-5 L5-S1 medial branch block x2 working towards RFA increase percocet 5-325mg TID PRN moderate to severe pain continue baclofen to 5mg TID PRN myofascial pain continue gabapentin 300mg AM and 600mg HS continue nortriptyline 35mg hs risks vs benefits of current medication regimen reviewed and discussed, patient continues to find functional improvement and pain relief with current regimen continue f/u with Dr Malhotra for right shoulder pain/injection therapy f/u after injection
== END 2023-08-30 12:24 | disposition home or self-care (01) ==
LOC: PM 12:24
PROVIDERS: PCP Family Medicine; Visit Provider Nurse Practitioner
DX: M47.816 Spondylosis without myelopathy or radiculopathy, lumbar region (principal); M47.22 Other spondylosis with radiculopathy, cervical region; M19.011 Primary osteoarthritis, right shoulder; M75.91 Shoulder lesion, unspecified, right shoulder; Z79.899 Other long term (current) drug therapy
CPT/HCPCS: G0463

== ENCOUNTER 2023-09-03 10:27 | Outpatient (OUT) | payer MEDICARE, OTHER, SELFPAY ==
--- NOTE | 2023-09-03 10:30 | XR_ITS ---
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 Posterior decompression bilateral transpedicular fusion L3-L4. No mechanical failure . Progression of spondylosis and facet osteoarthropathy DISC SPACES: Progression of disc space narrowing with endplate sclerosis and vacuum disks PARASPINOUS: Negative. No paraspinous abnormality is seen. OTHER: Negative. XR/XR lumbar spine min 4V IMPRESSION: Stable posterior L3-L4 fusion Progression of severe degenerative changes Electronically authenticated by: BRENT BERMAN Date: 09/03/2023 15:32
== END 2023-09-03 10:28 | disposition home or self-care (01) ==
LOC: RAD 10:27
PROVIDERS: PCP Family Medicine; Visit Provider Nurse Practitioner
DX: M54.50 Low back pain, unspecified (principal); M51.36 Other intervertebral disc degeneration, lumbar region
CPT/HCPCS: 72110

== ENCOUNTER 2023-09-17 07:33 | Day surgery (SDC) | payer MEDICARE, OTHER, SELFPAY ==
[2023-09-17 07:43] VITALS: BP 144/87; PULSE 83; TEMP 36.1; O2SAT 98
--- OUTSIDE RECORDS SUMMARY | 2023-09-17 07:56 | XMS_ITS | CCD ---
Author Organization [facility] Care Team Providers Care Business Professor Name Role Phone Unavailable Primary Care Provider JEREMIAH Arnold Primary Care Physician BRENT MALDONADO Consulting Unavailable LAKSHMIPATHY ., NARTAMIKA Admitting Chelly vailable LAKSHMIPATHY ., BARBARA Attending Chelly vailable REED, DR JEREMIAH Poole Primary Care Unavailable LAKSHMIPATHY ., NARTAMIKA Consulting Chelly vailable LAKSHMIPATHY ., BARBARA Attending Chelly vailable TRICIA ., BARBARA Admitting Chelly vailable DEREK, DR JEREMIAH Poole Primary Care Unavailable REED, DR JEREMIAH Poole Primary Care Unavailable SAMSA ., LEANDRA Attending Unavailable SAMSA ., LEANDRA Admitting Unavailable SAMSA ., LEANDRA Consulting Unavailable PAUL, DR EHSAN Haskins Consulting Unavailable DEREK, DR JEREMIAH Poole Primary Care Unavailable REED, DR JEREMIAH Poole Attending Unavailable REED, DR JEREMIAH Poole Admitting Unavailable REED, DR JEREMIAH Poole Consulting Unavailable DEREK, DR JEREMIAH Poole Attending Unavailable DEREK, DR JEREMIAH Poole Primary Care Unavailable REED, DR JEREMIAH Poole Admitting Unavailable REED, DR JEREMIAH Poole Consulting Unavailable SHANNON, DR SHIREEN Jamil Admitting Unavailabl e REINRYAN, DR SHIREEN Jamil Consulting Unavailabl e REINRYAN, DR SHIREEN Jamil Attending Unavailabl e REED, DR JEREMIAH Poole Primary Care Unavailable SIMONA .TIO Consulting Unavailable ANIRUDH BARAHONA Consulting Unavailable ISAC CONNOR Consulting Unavailable GAYATRI, DR HARSHAL Lockhart Attending Unavailable GAYATRI, DR HARSHAL Lockhart Admitting Unavailable DEREK, DR JEREMIAH Poole Primary Care Unavailable NIESHA .DR SAAB Consulting Unavailable AMITA ., DR MEGAN Poole Consulting Unavailable PAUL, DR EHSAN Haskins Consulting Unavailable GAYATRI, DR HARSHAL Lockhart Consulting Unavailable CHANI HWANG Consulting Unavailable EUN BARRY Consulting Unavailable DEREK, DR JEREMIAH Poole Primary Care Unavailable LAKSHMIPATHY ., NARENDRANATH Attending Chelly vailable LAKSHMIPATHY ., NARENDRANATH Admitting Chelly vailable LAKSHMIPATHY ., NARENDKENNAATH Consulting Chelly vailable RAMOS ., DR FELISHA Page Attending Unavailable RAMOS ., DR FELISHA Page Admitting Unavailable ZIEBER, DR EHSAN Haskins Consulting Unavailable REED, DR [...] DR JEREMIAH Poole Consulting Unavailable REED, DR JEERMIAH Poole Primary Care Unavailable FLORES ., MARTIN Consulting Unavailable LAKSHMIPATHY ., NARENDRANATH Admitting Chelly vailable LAKSHMIPATHY ., NARENDRANATH Consulting Chelly vailable LAKSHMIPATHY ., NARENDKENNAATH Attending Chelly vailable REED, DR JEREMIAH Poole Primary Care Unavailable LAKSHMIPATHY ., NARENDRANATH Attending Chelly vailable LAKSHMIPATHY ., JAZMINATH Admitting Chelly vailable DEREK, DR JEREMIAH Poole Primary Care Unavailable PAUL, DR EHSAN Haskins Consulting Unavailable SAMSA ., LEANDRA Attending Unavailable REED, DR JEREMIAH Poole Referring Unavailable DEREK, DR [...] Attending Unavailchelsea ORTEGA, DR SHIREEN Jamil Admitting Unavailabl e REED, DR JEREMIAH Poole Primary Care Unavailable BRENT [...] JEREMIAH Poole Attending Unavailable Jeremiah Reed Unavailable Daniellaitis , Andjameel Glaser Attending Unavailable Giedraitis , Andrius Jailyn Attending Unavailable Giedraitis , Andrius Jailyn Attending Unavailable Giedraitis , Andrius Jailyn Attending Unavailable Giedraitis , Andrius Vnella Attending Unavailable Ray Fofana Unavailable DIDIER MALDONADO Attending Unavailable BRENDA MARIN Admitting Unavailable BRENDA MARIN Attending Unavailable Efrain Kurtz Admitting Unavailable Efrain Kurtz Attending Unavailable Ehsan Blair Consulting Unavailable MD Ehsan Blair Consulting Unavailable Golden, Ehsan Consulting Unavailable Golden, Ehsan Consulting Unavailable Golden, Ehsan Consulting Unavailable Golden, Ehsan Consulting Unavailable Golden, Ehsan Consulting Unavailable Golden, Ehsan Consulting Unavailable Golden, Ehsan Consulting Unavailable BRENDA MARIN Attending Unavailable BRENDA MARIN Attending Unavailable MIAHBRENDA DAMICO Attending Unavailable BRENDA MARIN Referring Unavailable BRENDA MARIN Attending Unavailable Cayden ROBB Attending Unavailable Cayden ROBB Referring Unavailable Cyaden ROBB Admitting Unavailable MIAHBRENDA DAMICO Admitting Unavailable BRENDA MARIN Attending Unavailable Allergies Allergy Classification Reported Allergen(s) Allergy Type Date of Onset Reaction(s) Facility (7 sources) patient allergy list reviewed by nurse or physicia Propensity to adverse reactions 9 Comment:Done eflow Other (7 sources) Allergies Reconciled Propensity to adverse reactions Unknown eflow Other Medications Current Medications Medication Drug Class(es) Dates Sig (Normalized) Sig (Original) acetaminophen 325 mg oral tablet (1 source) Start: 04-13-2023 take 2 tablets by mouth every six hours as needed for pain acetaminophen 325 mg Tab 650 mg = 2 tab(s), Oral, q6hr, PRN Pain, Refills(s) 0 Start Date: 04/13/23 Status: Ordered acetaminophen 325 mg / oxyCODONE hydrochloride 2.5 mg oral tablet (6 sources) Opioid Agonist Start: 02-18-2019 take 1 tablet by mouth every twelve hours as needed for pain acetaminophen-oxyc odone 325 mg-2.5 mg oral tablet 1 tab(s), Oral, q12hr as needed for pain, Refill(s) 0 Start Date: 02/18/19 Status: Ordered amLODIPine 10 mg oral tablet (13 sources) Dihydropyridine Calcium Channel Harlan Start: 04-21-2022 take 1 tablet by mouth once daily amlodipine 10mg amLODIPine 10mg, 1 (one) Tablet daily # 30, 04/21/2022, No Refill. Active oral daily for 30 *Reorder from [employer] for eRx and Interaction Alerts* Apr, Active Start: 02-11-2019 take 2 tablets by mo [facility] once daily amLODIPine 2.5 mg Tab 5 mg = 2 tab(s), Oral, Daily, # 90 tab(s), Refills(s) 0 Start Date: 02/11/19 Status: Ordered take 1 tablet by [facility] every twenty-four hours amLODIPine Besylate 5 MG 1 tablet Orally Once a day for 30 days Active Ocuvite (6 sources) Vitamin C Start: 02-03-2021 Ocuvite Oral, Daily, Refill(s) 0 Start Date: 02/03/21 Status: Ordered aspirin 81 mg delayed release oral tablet (8 sources) Platelet Aggregation Inhibitor, Nonsteroidal Anti-inflammatory Drug Start: 04-13-2023 take 1 tablet by mouth once daily aspirin 81 mg Oral EC Tab 81 mg = 1 tab(s), Oral, Daily, Refills(s) 0 Start Date: 04/13/23 Status: Ordered Baclofen (9 sources) gamma-Aminobutyric Acid-ergic Agonist Start: 06-05-2023 BACLOFEN 10 MG TABLET BACLOFEN 10 MG TABLET Start Date: 06/05/23 Status: Ordered Start: 03-31-2021 Baclofen 10MG Baclofen( 10MG Oral ) Active -Hx Entry Oral for 0 *Pick strength-form from [employer] for eRX* 30 Mar, 2022 Active Start: 03-31-2021 take 5 mg by mouth t hree times daily baclofen 10 mg Tab 5 mg = 0.5 tab(s), Oral, TID, Refills(s) 0 Start Date: 03/31/21 Status: Ordered busPIRone hydrochloride 10 m g oral tablet (11 sources) Start: 02-03-2021 busPIRone 10 m g Tab Refills(s) 0 Start Date: 06/05/23 Status: Ordered calcium citrate 950 mg oral tablet (2 sources) Start: 08-28-2023 calcium (as ca lcium citrate) 200 mg oral tablet 950 mg = 1 tab(s), Oral, BID, Refills(s) 0 Start Date: 08/28/23 Status: Ordered Start: 06-21-2022 take 1 mg by mouth twice daily calcium (as calcium citrate) 200 mg oral tablet mg tab(s), Oral, BID, Refills(s) 0 Start Date: 06/21/22 Status: Ordered ciprofloxacin 500 mg oral tablet (1 source) Quinolone Antimicrobial Start: 06-11-2023 Cipro 500 mg Tab See Instructions, Take 1 tab day prior to procedure and 1 tab day of procdure - afterwards, # 2 tab(s), Refills(s) 0, Pharmacy: [facility]/pharmacy #[id number], 165, cm, 06/05/23 12:57:00 EST, Height/Length Dosing, 87, kg, 06/05/23 12:57:00 EST, Weight Dosing Start Date: 06/11/23 Status: Ordered gabapentin 300 mg oral capsule (13 sources) Anti-epileptic Agent Start: 04-13-2023 take 1 capsule by mouth three times daily gabapentin 300 mg Cap 300 mg = 1 cap(s), Oral, TID, Refills(s) 0 Start Date: 04/13/23 Status: Ordered Start: 02-11-2019 take 1 tablet by buffy th three times daily gabapentin 600 mg Tab 600 mg = 1 tab(s), Oral, TID, Refills(s) 0 Start Date: 02/11/19 Status: Ordered glucosamine sulfate 500 mg oral capsule (9 sources) Start: 08-28-2023 take 1 capsule by mouth twice daily glucosamine 500 mg Cap 500 mg = 1 cap(s), Oral, BID, Refills(s) 0 Start Date: 08/28/23 Status: Ordered Start: 02-11-2019 take 500 mg by mouth twice corinna ly glucosamine 500 mg, Oral, BID, Refills(s) 0 Start Date: 02/11/19 Status: Ordered take 2 capsules by m outh once daily Glucosamine 500 MG 2capsule with a meal Orally Once a day Active take 2 capsules by m outh once daily Glucosamine 500 MG 2capsule with a meal Orally Once a day Active Handicap Placard (7 sources) Start: 11-25-2019 Handicap Placard HandiCap Placard , as directed # 1, 11/25/2019, No Refill. Active as directed for 0 duration 5 years *Reorder from [employer] for eRx and Interaction Alerts* Nov, Active Melatonin (6 sources) Start: 02-03-2021 melatonin Once a day (at bedtime), Refills(s) 0 Start Date: 02/03/21 Status: Ordered meloxicam 15 mg oral tablet (8 sources) Nonsteroidal Anti-inflammatory Drug Start: 04-12-2022 take 15 mg by mouth once daily Meloxicam 15 MG meloxicam( 15mg oral daily ) Active -Hx Entry Oral daily for 0 Mar, Active 24 hr mirabegron 50 mg extended release oral tablet (1 source) beta3-Adrenergic Agonist Start: 08-28-2023 End: 08-22-2024 take 1 tablet by mouth once daily Myrbetriq 50 mg oral tablet, extended release 50 mg = 1 tab(s), Oral, Daily, X 30 day(s), # 30 tab(s), Refills(s) 11, Pharmacy: [facility]/pharmacy #[id number], 165, cm, 08/28/23 15:03:00 EDT, Height/Length Dosing, 90, kg, 08/28/23 15:03:00 EDT, Weight Dosing Start Date: 08/28/23 Stop Date: 08/22/24 Status: Ordered nortriptyline 25 mg oral capsule (13 sources) Tricyclic Antidepressant Start: 02-11-2019 take 1 capsule by mouth at bedtime nortriptyline 25 mg Cap 25 mg = 1 cap(s), Oral, Bedtime, Refills(s) 0 Start Date: 02/11/19 Status: Ordered omeprazole 40 mg delayed release oral capsule (13 sources) Proton Pump Inhibitor Start: 02-11-2019 take 1 capsule by mouth once daily omeprazole 40 mg Cap-DR 40 mg = 1 cap(s), Oral, Daily, Refills(s) 0 Start Date: 02/11/19 Status: Ordered solifenacin succinate 10 mg oral tablet (11 sources) Cholinergic Muscarinic Antagonist Start: 06-21-2022 End: 06-16-2023 take 1 tablet by mouth once daily Vesicare 10 mg Tab 10 mg = 1 tab(s), Oral, Daily, X 30 day(s), # 30 tab(s), Refills(s) 11, Pharmacy: [id number], 165, cm, 06/21/22 14:53:00 EST, Height/Length Dosing, 87, kg, 06/21/22 14:53:00 EST, Weight Dosing Start Date: 06/21/22 Stop Date: 06/16/23 Status: Ordered Tudorza Pressair 400mcg/actuat (7 sources) Start: 04-12-2022 take 1 puff(s) by inhalation twice daily Tudorza Pressair 400mcg/actuat Tudorza Pressair 400mcg/actuat, 1 (one) Puff BID # 1, 04/12/2022, Ref. x12. Active inhalation BID *Pick strength-form from [employer] for eRX* Mar, Active Start: 04-12-2022 take 1 puff(s) by in halation twice daily Tudorza Pressair 400mcg/actuat Tudorza Pressair 400mcg/actuat, 1 (one) Puff BID # 1, 04/12/2022, Ref. x12. Active inhalation BID for 30 *Pick strength-form from [employer] for eRX* Mar, Active vibegron 75 MG Oral Tablet [Gemtesa] (1 source) Start: 08-28-2023 End: 08-22-2024 take 1 tablet by mouth once daily Gemtesa 75 mg oral tablet 75 mg = 1 tab(s), Oral, Daily, X 30 day(s), # 30 tab(s), Refills(s) 11, Pharmacy: [facility]/pharmacy #[id number], 165, cm, 08/28/23 15:03:00 EDT, Height/Length Dosing, 90, kg, 08/28/23 15:03:00 EDT, Weight Dosing Start Date: 08/28/23 Stop Date: 08/22/24 Status: Ordered Vision Formula (7 sources) Vision Formula A ctive Problems Active Problems Problem Classification Problem Date Documented Date Episodic/Chronic Abdominal hernia (1 source) Diaphragmatic hernia without obstruction or gangrene; Translations: [DIAPH HERNIA W/O OBST/GANGRENE] Onset: 3 Episodic Abdominal pain (6 sources) Abdominal tenderness 02-03-2021 Episodic Anxiety disorders (8 sources) Anxiety; Translations: [Anxiety] Onset: 3 Chronic Chronic kidney disease (7 sources) Chronic kidney disease stage 3; Translations: [Chronic kidney disease, stage 3 (moderate)] Chronic Chronic obstructive pulmonary disease and bronchiectasis (14 sources) Centrilobular emphysema; Translations: [Chronic obstructive pulmonary disease with (acute) exacerbation] Onset: 2 Chronic Diseases of white blood cells (1 source) Elevated white blood cell count, unspecified; Translations: [ELEVATED WHITE BLOOD CELL COUNT UNS] Onset: 2 Chronic Esophageal disorders (1 source) Gastroesophageal reflux disease without esophagitis; Translations: [Gastro-esophageal reflux disease without esophagitis] Onset: 3 Chronic Essential hypertension (13 sources) Essential (primary) hypertension; Translations: [Hypertensive disorder] Onset: 2 Chronic Genitourinary symptoms and ill-defined conditions (20 sources) Dysuria; Translations: [Increased frequency of urination] Onset: 2 02-03-2021 Episodic Hypertension with complications and secondary hypertension (8 sources) Hypertensive chronic kidney disease with stage [...] current use of drug therapy; Translations: [Other terminal block assembler (current) drug therapy] Onset: 3 Episodic Other connective tissue disease (1 source) Other muscle spasm; Translations: [OTHER MUSCLE SPASM] Onset: 3 Episodic Other diseases of bladder and urethra (4 sources) Detrusor overactivity; Translations: [Overactive bladder] Onset: 3 Chronic Other diseases of bladder and urethra (6 sources) Overactive bladder 03-31-2021 Chronic Other diseases of bladder and urethra (3 sources) Male urethral stricture; Translations: [Unspecified urethral stricture, male, unspecified site] Onset: 3 Episodic Other diseases of bladder and urethra (6 sources) Traumatic urethral stricture 02-03-2021 Episodic Other diseases of bladder and urethra (6 sources) Urethral stricture 02-11-2019 Episodic Other diseases of kidney and ureters (7 sources) Hyperparathyroidism due to renal insufficiency; Translations: [Secondary hyperparathyroidism of renal origin] Chronic Other endocrine disorders (7 sources) Primary hyperparathyroidism; Translations: [Primary hyperparathyroidism] Chronic Other endocrine disorders (7 sources) Hyperparathyroidism; Translations: [Hyperparathyroidism, unspecified] Chronic Other [...] Episodic Other nutritional; endocrine; and metabolic disorders (7 sources) Hypercalcemia; Translations: [Hypercalcemia] Chronic Other nutritional; [...] ORGANISM] Onset: 2 Episodic Residual codes; unclassified (7 sources) Chronic pain; Translations: [Chronic pain] Episodic Residual codes; unclassified (1 source) Altered mental status; Translations: [Altered mental status, unspecified] Onset: 3 Episodic Spondylosis; intervertebral disc disorders; other back problems (12 sources) Spondylosis without myelopathy or radiculopathy, cervical region; Translations: [Spondylosis without myelopathy or radiculopathy, lumbar region] Onset: 2 Chronic Spondylosis; intervertebral disc disorders; other back problems (13 sources) Backache; Translations: [Cervicalgia] Onset: 2 02-11-2019 Episodic Sprains and strains (8 sources) Strain of muscle(s) and tendon(s) of the rotator cuff of right shoulder, subsequent encounter; Translations: [Strain of muscle(s) and tendon(s) of the rotator cuff of right shoulder, initial encounter] Onset: 3 Episodic Substance-related disorders (6 sources) Cigarette smoker 10-21-2019 Chronic Thyroid disorders [...] EXPOS COVID-19] Onset: 2 Urinary tract infections (6 sources) Chronic cystitis 10-21-2019 Chronic Urinary tract infections (12 sources) Acute urinary tract infection; Translations: [Urinary [...] Episodic Other aftercare (1 source) Other terminal block assembler (current) drug therapy; Translations: [OTH MANAGER LEAN CURRENT DRUG THERAPY] Onset: 01-09-2022 Episodic Other [...] OF NICOTINE DEPEND] Onset: 01-09-2022 Episodic Unclassified (6 sources) Finding of sensation of bladder 02-03-2021 Unclassified (1 source) LOW BACK PAIN, UNSPECIFIED; Translations: [LOW BACK PAIN, UNSPECIFIED] Onset: 05-11-2022 Results Test Name Value Interpretation Reference Range Facility Ambulatory Visit Summaryon 0 08-28-2023 Ambulatory Visit Summary AARON JJ :1945 Visit Date:08/28/2023 Ambulatory Visit Instructions Your Diagnosis Urethral stricture OAB (overactive bladder) Recurrent UTI Your Care Team Attending Physician - BRENDA MARIN PA-C Primary Care Physician - JEREMIAH REED MD Referring Physician - BRENDA MARIN PA-C This Is Your Medications List acetaminophen-oxycod one (acetaminophen-oxyco done 325 mg-2.5 mg oral tablet) amlodipine (amLODIPine 2.5 mg Tab) aspirin (aspirin 81 mg Oral EC Tab) calcium citrate (calcium (as calcium citrate) 200 mg oral tablet) gabapentin (gabapentin 300 mg Cap) glucosamine (glucosamine 500 mg Cap) melatonin mirabegron (Myrbetriq 50 mg oral tablet, extended release) multivitamin with minerals (Ocuvite) nortriptyline (nortriptyline 25 mg Cap) omeprazole (omeprazole 40 mg Cap-DR) vibegron (Gemtesa 75 mg oral tablet) Procedures Performed Cystourethroscopy with dilation of urethral stricture (07/23/2023), Cystourethroscopy with dilation of urethral stricture (06/16/2016), Appendectomy, Biopsy of breast, Hysterectomy. Discharge Vitals Temperature (Temporal Artery) 36.8 ?C Heart Rate (Peripheral) 92 Respiratory Rate 16 Blood Pressure 132/80 Height 165 cm Height 65 in Weight 90 kg Weight 198 lb BMI 33.06 Medications What How Much When Why Instructions New mirabegron (Myrbetriq 50 mg oral tablet, extended release) 1 Tablets By Mouth Every day Urethral stricture OAB (overactive bladder) Recurrent UTI Duration: 30 Days Refills: 11 Pickup at [facility]/pharmacy #[id number] New vibegron (Gemtesa 75 mg oral tablet) 1 Tablets By Mouth Every day Urethral stricture OAB (overactive bladder) Recurrent UTI Duration: 30 Days Refills: 11 Pickup at [facility]/pharmacy #[id number] Unchanged acetaminophen-oxycod one (acetaminophen-oxyco done 325 mg-2.5 mg oral tablet) 1 Tablets By Mouth Every 12 hours as needed for as needed for pain Unchanged amlodipine (amLODIPine 2.5 mg Tab) 2 Tablets By Mouth Every day Unchanged aspirin (aspirin 81 mg Oral EC Tab) 1 Tablets By Mouth Every day Unchanged calcium citrate (calcium (as calcium citrate) 200 mg oral tablet) 1 Tablets By Mouth 2 times a day Unchanged gabapentin (gabapentin 300 mg Cap) 1 Capsules By Mouth 3 times a day Unchanged glucosamine (glucosamine 500 mg Cap) 1 Capsules By Mouth 2 times a day Unchanged melatonin Once a day (at bedtime) Unchanged multivitamin with minerals (Ocuvite) By Mouth Every day Unchanged nortriptyline (nortriptyline 25 mg Cap) 1 Capsules By Mouth At bedtime Unchanged omeprazole (omeprazole 40 mg Cap-DR) 1 Capsules By Mouth Every day Pharmacy Information [facility]/pharmacy #[id number]: [address], [place] [phone] Allergies No Known Allergies Problems Ongoing - Any problem that you are currently receiving treatment for. Chronic cystitis Cigarette smoker Dorsalgia OAB (overactive bladder) Recurrent UTI Urethral stricture Historical - Any problem that you are no longer receiving treatment for. Abdominal tenderness Acute UTI Dysuria Feeling of incomplete bladder emptying Frequency of urination Nocturia Other post-traumatic urethral stricture, female Urinary urgency Weak urine stream Patient Survey You may receive a survey via text or e-mail asking about your office visit. Please share your experience with us by completing your survey. We appreciate your feedback and thank you for choosing us for your care. [facility] Patient Educationon 08-28-19 Patient Education Obstetrics and Gynecology Overactive Bladder, Adult Overactive bladder is a condition in which a person has a sudden and frequent need to urinate. A person might also leak urine if he or she cannot get to the bathroom fast enough (urinary incontinence). Sometimes, symptoms can interfere with work or social activities. What are the causes? Overactive bladder is associated with poor nerve signals between your bladder and your brain. Your bladder may get the signal to empty before it is full. You may also have very sensitive muscles that make your bladder squeeze too soon. This condition may also be caused by other factors, such as: ? Medical conditions: ? Urinary tract infection. ? Infection of nearby tissues. ? Prostate enlargement. ? Bladder stones, inflammation, or tumors. ? Diabetes. ? Muscle or nerve weakness, especially from these conditions: ? A spinal cord injury. ? Stroke. ? Multiple sclerosis. ? Parkinson's disease. ? Other causes: ? Surgery on the uterus or urethra. ? Drinking too much caffeine or alcohol. ? Certain medicines, especially those that eliminate extra fluid in the body (diuretics). ? Constipation. What increases the risk? You may be at greater risk for overactive bladder if you: ? Are an older adult. ? Smoke. ? Are going through menopause. ? Have prostate problems. ? Have a neurological disease, such as stroke, dementia, Parkinson's disease, or multiple sclerosis (MS). ? Eat or drink alcohol, spicy food, caffeine, and other things that irritate the bladder. ? Are overweight or obese. What are the signs or symptoms? Symptoms of this condition include a sudden, strong urge to urinate. Other symptoms include: ? Leaking urine. ? Urinating 8 or more times a day. ? Waking up to urinate 2 or more times overnight. How is this diagnosed? This condition may be diagnosed based on: ? Your symptoms and medical history. ? A physical exam. ? Blood or urine tests to check for possible causes, such as infection. You may also need to see a health care provider who specializes in urinary tract problems. This is called a urologist. How is this treated? Treatment for overactive bladder depends on the cause of your condition and whether it is mild or severe. Treatment may include: ? Bladder training, such as: ? Learning to control the urge to urinate by following a schedule to urinate at regular intervals. ? Doing Kegel exercises to strengthen the pelvic floor muscles that support your bladder. ? Special devices, such as: ? Biofeedback. This uses sensors to help you become aware of your body's signals. ? Electrical stimulation. This uses electrodes placed inside the body (implanted) or outside the body. These electrodes send gentle pulses of electricity to strengthen the nerves or muscles that control the bladder. ? Women may use a plastic device, called a pessary, that fits into the vagina and supports the bladder. ? Medicines, such as: ? Antibiotics to treat bladder infection. ? Antispasmodics to stop the bladder from releasing urine at the wrong time. ? Tricyclic antidepressants to relax bladder muscles. ? Injections of botulinum toxin type A directly into the bladder tissue to relax bladder muscles. ? Surgery, such as: ? A device may be implanted to help manage the nerve signals that control urination. ? An electrode may be implanted to stimulate electrical signals in the bladder. ? A procedure may be done to change the shape of the bladder. This is done only in very severe cases. Follow these instructions at home: Eating and drinking ? Make diet or lifestyle changes recommended by your health care provider. These may include: ? Drinking fluids throughout the day and not only with meals. ? Cutting down on caffeine or alcohol. ? Eating a healthy and balanced diet to prevent constipation. This may include: ? Choosing foods that are high in fiber, such as beans, whole grains, and fresh fruits and vegetables. ? Limiting foods that are high in fat and processed sugars, such as fried and sweet foods. Lifestyle ? Lose weight if needed. ? Do not use any products that contain nicotine or tobacco. These include cigarettes, chewing tobacco, and vaping devices, such as e-cigarettes. If you need help quitting, ask your health care provider. General instructions ? Take [id number] and prescription medicines only as told by your health care provider. ? If you were prescribed an antibiotic medicine, take it as told by your health care provider. Do not stop taking the antibiotic even if you start to feel better. ? Use any implants or pessary as told by your health care provider. ? If needed, wear pads to absorb urine leakage. ? Keep a log to track how much and when you drink, and when you need to urinate. This will help your health care provider monitor yo (more content not included)... [facility] Urology Office/Clinic Noteon 08-28-2023 Urology Office/Clinic Note Chief Complaint 3 mo f/u HPI Staff Former DLS pt (now being followed by [facility]) S/P Cysto/UD by [facility] 07/23/23 DX: Urethral Stricture, Recurrent UTI & OAB +C&S at time of last encounter *>100k E Coli Tx'd w/Bactrim Called our office 07/09/23 c/o back pain +C&S 07/09/23 *20k E Coli & 10k Proteus Tx'd w/Cipro Dysuria: denies Incomplete bladder emptying: yes Hematuria: denies Frequency: yes Urgency: yes Nocturia: 4x a night Stream: weak at times Leaking: denies Post void dripping: denies Wearing pads/ Depends: denies Urge incontinence: denies Stress incontinence: denies Incontinence without Sensory Awareness: denies Abdominal pain: denies Flank pain: denies Sexual complaints: _ Review of Systems PHQ Score Initial Depression Screen Score: 0 SCORE no fever, chills, malaise, myalgia. no rash/lesions. no chest pain, palpitations, or SOB. no abdominal pain, nausea, vomiting. no unilateral calf swelling, redness, pain Physical Exam Vitals & Measurements T: 36.8 ?C(Temporal Artery) HR: 92(Peripheral) RR: 16 BP: 132/80 HT: 65 in HT: 165 cm WT: 90 kg WT: 198 lb BMI: 33.06 General: nontoxic, NAD Mouth: moist mucosa Lungs: normal respiratory effort Cardio: regular rate, good distal perfusion Abdomen: nondistended, no suprapubic distention or tenderness, no CVA tenderness Neurologic: Grossly normal Skin: No rashes or suspicious lesions Assessment/Plan 1. OAB (overactive bladder) (N32.81: Overactive bladder) BBS 14, although pt states she does not leak she is very bothered by frequency/urgency/no cturia. Has failed Ditropan, Tolterodine, and Vesicare. Does admit to drinking Diet Pepsi and drinking up until bedtime. Recommended reducing evening fluids and reducing bladder irritants. pt reports no change in intake of fluids. drinks 2-3 cans Diet Pepsi daily. unwilling/unable to change this. reiterated that this will make things more challenging. no change in urinary sx w UD. Discussed remaining tx options: Beta 3's, Botox, SNM. -rx sent for Gemtesa/Myrbetriq, will fill cheaper option. if neither are cost effective then won't fill either med. -provided pt education book to review regarding Botox. -pt will call to schedule f/u once we have plan of next steps Ordered: mirabegron, 50 mg = 1 tab(s), Oral, Daily, X 30 day(s), # 30 tab(s), Refills(s) 11, Pharmacy: [facility]/pharmacy #[id number], 165, cm, 08/28/23 15:03:00 EDT, Height/Length Dosing, 90, kg, 08/28/23 15:03:00 EDT, Weight Dosing vibegron, 75 mg = 1 tab(s), Oral, Daily, X 30 day(s), # 30 tab(s), Refills(s) 11, Pharmacy: [facility]/pharmacy #[id number], 165, cm, 08/28/23 15:03:00 EDT, Height/Length Dosing, 90, kg, 08/28/23 15:03:00 EDT, Weight Dosing 60449 Measure Post Void residual urine and/or bladder capacity by US- non-imaging Body Mass Index (BMI) documented 3008F Complex E&M Add on G2211 Current tobacco non-user 1036F Depression Screening Negative 3352F E&M of Est. Patient Moderate 30-39 Min 38872 Influenza immunization status assessed 1030F Medication list documented in medical record 1159F Most recent diastolic blood pressure 80-89 mm Hg 3079F Patient screen for fall risk: no falls in last year or 1 fall with no injury in last year 1101F Review of all meds by a prescribing practitioner or clinical pharmacist documented in EHR 1160F Systolic BP <130 mm Hg (Most Recent) 3074F Urnls Dip Stick Auto w/o Microscopy POC 52943 2. Urethral stricture (N35.919: Unspecified urethral stricture, male, unspecified site) S/p UD done 06/16/[address] Moreno. at ov May 2023 reported worsening freq/urge/noct despite no change in intake so we decided to repeat UD s/p UD 07/23/23 w [facility] - urethra tight at 18fr, bladder w moderate trabec no improvement in sx after UD. Ordered: mirabegron, 50 mg = 1 tab(s), Oral, Daily, X 30 day(s), # 30 tab(s), Refills(s) 11, Pharmacy: [facility]/pharmacy #[id number], 165, cm, 08/28/23 15:03:00 EDT, Height/Length Dosing, 90, kg, 08/28/23 15:03:00 EDT, Weight Dosing vibegron, 75 mg = 1 tab(s), Oral, Daily, X 30 day(s), # 30 tab(s), Refills(s) 11, Pharmacy: [facility]/pharmacy #[id number], 165, cm, 08/28/23 15:03:00 EDT, Height/Length Dosing, 90, kg, 08/28/23 15:03:00 EDT, Weight Dosing 28991 Measure Post Void residual urine and/or bladder capacity by US- non-imaging Body Mass Index (BMI) documented 3008F Complex E&M Add on G2211 Current tobacco non-user 1036F Depression Screening Negative 3352F E&M of Est. Patient Moderate 30-39 Min 56389 Influenza immunization status assessed 1030F Medication list documented in medical record 1159F Most recent diastolic blood pressure 80-89 mm Hg 3079F Patient screen for fall risk: no falls in last year or 1 fall with no injury in last year 1101F Review of all meds by a prescribing practitioner or clinical pharmacist documented in EHR 1160F Systolic BP <130 mm Hg (Most Recent) 3074F 3. Recurrent UTI (N39.0: Urinary tract infection, site not specified) UCx: 03/22/23 - >100k E Coli, 50k Proteus (more content not included)... [facility] Comment on above: Result Comment: Elec tronically Signed By: MIAH ROE, BRENDA Poole\.br\Date and Time Signed: 08/28/23 15:38 EDT Physician Orderon 08-02-2023 Physician Order [id number] #1.00TIFF [facility] Consent for Procedure/Surger yon 07-23-2023 Consent for Procedure/Surgery [id number] 4#1.00TIFF [facility] Consent for Treatmenton 07-12 Consent for Treatment [id number] 1#1.00TIFF [facility] Inpatient Patient Summaryon 07-23-2023 Inpatient Patient Summary [address] [address] Clinical Summary Person Information Name: AARON JJ Age: 78 Years : 1945 Sex: Female PCP: JEREMIAH REED MD Marital Status: Phone: [phone] Race: White Ethnicity: Non- or Language: Nicaraguan Visit Id: Visit Reason: URETHER STRICTURE AND RECURRENT UTI Speciality: Acuity: Enc Type: Outpatient Med Service: Surgery Arrival: 07/23/2023 13:44:06 Discharge: Dispo Type: Address: [address] [place] [address] [address] [place] [id number] Provider Notes: Diagnosis: Problems Active Recurrent UTI OAB (overactive bladder) Cigarette smoker Chronic cystitis Dorsalgia Urethral stricture Smoking Status: Functional Status: Sensory Deficits: History of Falls: Mobility Assistance Prior to Admission: ADLs: Current Level of Assistance for Self-Care/Mobility: Cognitive Status: Allergies No Known Allergies Laboratory or Other Results This Visit (last charted value for your 07/23/2023 visit) No Laboratory or Other Results This Visit Measurements: Height: Weight: Blood Pressure: Not Valued / Not Valued BMI: Procedures No Procedures Documented Immunizations No Immunizations Documented This Visit Final Med List: acetaminophen-oxycod one (acetaminophen-oxyco done 325 mg-2.5 mg oral tablet) 1 Tablets By Mouth every 12 hours as needed as needed for pain. amlodipine (amLODIPine 2.5 mg Tab) 2 Tablets By Mouth every day. aspirin (aspirin 81 mg Oral EC Tab) 1 Tablets By Mouth every day. busPIRone (busPIRone 10 mg Tab) ciprofloxacin (Cipro 500 mg Tab) Take 1 tab day prior to procedure and 1 tab day of procdure - afterwards. Refills: 0. gabapentin (gabapentin 300 mg Cap) 1 Capsules By Mouth 3 times a day. melatonin once a day (at bedtime). Misc Prescription (BACLOFEN 10 MG TABLET) 0. multivitamin with minerals (Ocuvite) By Mouth every day. nortriptyline (nortriptyline 25 mg Cap) 1 Capsules By Mouth at bedtime. omeprazole (omeprazole 40 mg Cap-DR) 1 Capsules By Mouth every day. Care Team Members: Attending Physician: Cayden ROBB MD Consulting Physician: Referring Physician: Cayden ROBB MD Follow up: With: Address: When: BRENDA MARIN [address] [place] [phone] Business (1) Comments: Call for followup appointment with Georgette Marin PA-c within the next 2 months or so to monitor you. Please finish your antibiotics and have a great day. Patient Education Information: EU - Cystoscopy with Urethral Dilation Discharge Instructions (Custom) [facility] IntraOperative Documentson 0 07-23-2023 IntraOperative Documents [id number] 5#1.00TIFF [facility] Main OR Intraoperative Recor don 07-23-2023 Main OR Intraoperative Record IntraOp Document Type FTURO Summary Primary Physician: Cayden ROBB MD Finalized Date/Time: 07/23/23 14:33:02 Pt. Name: АННА AARONRANJITH Odom/Sex: 1945 Female Med Rec #: [id number] Physician: Cayden ROBB MD Financial #: [id number] Pt. Type: O Room/Bed: / Admit/Disch: 07/23/23 13:44:06 - Institution: Case Times FTURO Entry 1 Patient Times In Room 07/23/23 14:19:00 Out Room 07/23/23 14:31:00 Procedure Times Start 07/23/23 14:22:00 Stop 07/23/23 14:26:00 Anesthesia Times Last Modified By: Crissy Borja RN 07/23/23 14:26:23 Case Attendance FTURO Entry 1 Entry 2 Entry 3 Case Attendee Cayden ROBB MD, RN, Son Tellez Role Performed Surgeon - Primary Machine Bander And Cellophaner Helper - Primary Scrub - Primary Time In 07/23/23 14:19:00 07/23/23 14:19:00 07/23/23 14:19:00 Time Out 07/23/23 14:31:00 07/23/23 14:31:00 07/23/23 14:31:00 Procedure CYSTOSCOPY LOCAL WITH CYSTOSCOPY LOCAL WITH CYSTOSCOPY LOCAL WITH URETHRAL DILATION(.) URETHRAL DILATION(.) URETHRAL DILATION(.) Comments Last Modified By: Jonh ALVARES, Crissy Borja RN, Crissy Borja RN, Crissy Hollins 07/23/23 Codie P 07/23/23 Codie P 07/23/23 14:26:27 14:26:27 14:26:27 Surgical Procedures FTURO Entry 1 Procedure Description Procedure CYSTOSCOPY LOCAL WITH Modifiers . URETHRAL DILATION Surgeon Description CYSTOSCOPY LOCAL WITH URETHRAL DILATION Primary Procedure Yes Primary Surgeon Cayden ROBB MD Start 07/23/23 14:07:00 Stop 07/23/23 14:26:00 Anesthesia Type Local Surgical Service Urology Wound Class 2 - Clean-Contaminated Last Modified By: Jonh ALVARES, Crissy Hollins 07/23/23 14:26:26 General Case Data FTURO Pre-Care Text: Classifies surgical wound, implements aseptic technique, initiates traffic control Entry 1 Case Information OR URO 1 FT Case Level None Wound Class 2 - Clean-Contaminated Specialty Urology Preop Diagnosis URETHER STRICTURE AND Postop Same As Preop Yes RECURRENT UTI Postop Diagnosis URETHER STRICTURE AND Outcomes Met? Yes RECURRENT UTI Last Modified By: Jonh ALVARES, Crissy Hollins 07/23/23 14:21:01 Post-Care Text: The patient is free from signs and symptoms of infection EU IntraOp - FTURO Pre-Care Text: Implements protective measures prior to operative or invasive procedure, confirms identity before the operative or invasive procedure, verifies operative procedure, surgical site, and laterality Entry 1 EU Perioperative Protocols Procedure(s) CYSTOSCOPY LOCAL WITH Patient Identity Birthday, ID Band URETHRAL DILATION(.) Verified (select at Check, Patient least 2): Participation Consents / H and P HandP, Surgery/Procedure Operative Site N/A Verified Consent Marking Verified Surgical Site Yes Laterality Verified n/a Verified Procedure Verified Yes Correct Patient Yes Position Verified Availability Equipment, Medication Time Out Cayden ROBB MD, Verified (If Participants Jonh ALVARES, Crissy Applicable) Murali De Guzman Kendall R Time Out Complete 07/23/23 14:21:00 Allergies Reviewed? Yes Allergies Reviewed Self/Patient With Body Position Low Lithotomy Prep Area PERINEAL AREA Prep Agents Betadine Solution Skin. Condition Unable to Visualize Description CLOTHED Additional None Specimens Collected Vitals - EU Blood Pressure 141/79 Pulse 98 bpm Respirations 16 br/min SPO2 IandO - EU Outcomes Met? Yes Last Modified By: Crissy Borja RN 07/23/23 14:22:25 Post-Care Text: The patient is free from signs and symptoms of injury caused by extraneous objects Sign Out FTURO Entry 1 Before Patient Leaves OR Nurse verbally Yes Nurse verbally Yes confirms with the confirms with the team the name of team that the procedure(s) instrument, sponge, recorded and needle counts are correct (or N/A) Nurse verbally n/a Nurse verbally Yes confirms with the confirms with the team how the team whether there specimen is labeled are any equipment (including patient problems to be name), if applicable addressed Sign Out Complete 07/23/23 14:26:00 Last Modified By: Crissy Borja RN 07/23/23 14:26:25 Case Comments Finalized By: Crissy Borja RN Document Signatures Signed By: Crissy Borja RN 07/23/23 14:33 [facility] Main OR Preoperative Recordo n 07-23-2023 Main OR Preoperative Record Holding Area Document Type FTURO Summary Primary Physician: Cayden ROBB MD Finalized Date/Time: 07/23/23 14:14:06 Pt. Name: АННАAARON/Sex: 1945 Female Med Rec #: [id number] Physician: Cayden ROBB MD Financial #: [id number] Pt. Type: O Room/Bed: / Admit/Disch: 07/23/23 13:44:06 - Institution: Case Times Holding FTURO Pre-Care Text: Verifies consent for planned procedure, identifies individual values and wishes concerning care, includes family members in perioperative teaching Secures patient's records' belongings, and valuables, maintains patient's dignity and privacy, and maintains patient confidentiality Entry 1 In Holding 07/23/23 14:04:00 Outcomes Met? Yes Last Modified By: Shahrzad ALVARES, Toña GARCIA 07/23/23 14:04:33 Post-Care Text: The patient participates in decisions affecting his or her perioperative plan of care The patient's right to privacy is maintained Surgery Checklist FTURO Entry 1 Patient Birthday, ID Band Procedure History and Physical, Identification: Check, Patient Verification: Surgical Consent, With Participation Family NPO after Midnight: n/a Personal Items: Cataract Lens Implant, Dentures Personal Items clothes Limitations: walks with cane Comment: Complaints of Pain: Yes Pain Comment: pain in back and right shoulder Skin Integrity Unable to Visualize Vitals - EU Blood Pressure 141/79 Pulse 98 bpm Respirations 16 br/min SPO2 95 % Last Modified By: JOSE Markham RN, Ruthann 07/23/23 14:14:04 Finalized By: JOSE Markham RN, Ruthann Document Signatures Signed By: JOSE Markham RN, Ruthann 07/23/23 14:14 [facility] Operative Reporton Operative Report Patient: AARON JJ Age: 78 years Sex: Female : 1945 Associated Diagnoses: None Author: Cayden ROBB MD Procedure Operative Information Details: Date/ Time: 07/23/2023 14:29:00. Pre-Op Dx: Recurrent UTI (ZSN89-NE N39.0, Working, Medical), Unspecified urethral stricture, female (MSI50-XN N35.92, Working, Medical), Overactive bladder (SNH26-GK N32.81, Working, Medical). Post-Op Dx: Same. Anesthesia Type: Local. Procedure: Local Cystoscopy with Urethral Dilation. Complications: None. Risks/Benefits/Infor med Consent: Surgical risks, benefits, details of the procedure have been explained to the patient, Full informed consent has been obtained. Intraoperative Information Prepped: Patient is brought back to the endoscopy suite, Patient is placed in modified dorso/lithotomy position, Patient prepped in the usual fashion with Betadine solution, 2% Xylocaine Jelly is placed per Urethra, After waiting several minutes the Cystoscope is introduced. The Urethra is: Tight, Tight at 18 Fr. . The Bladder is: Normal, Trabeculated Moderate (2), No tumor, no stones. . The ureteral orifices: Show efflux of clear urine. The Urethra was dilated to: 30 Malay w/ sounds. Devices Implanted: None. Removal: Cystoscope is removed, The patient tolerated it well. Postoperative Information Discharge: Patient is discharged home with antibiotic coverage, Follow up arranged, F/U with Georgette Marin PA-C within the next 2-3 months. Monitor the urinary flow pattern. The goal is also to decrease UTI frequency. . [facility] Comment on above: Result Comment: Elec tronically Signed By: Cayden ROBB MD\.br\Date and Time Signed: 07/23/23 14:30 EDT Outpatient Surgery Discharge Instructionon 07-23-2023 Outpatient Surgery Discharge Instruction [address] [address] Patient Discharge Instructions PERSON INFORMATION Name: AARON JJ Date of : 1945 Current Date: 07/23/2023 14:28:53 PHYSICIANS Admitting Physician: Cayden ROBB MD Comment: Discharge Diagnosis: AARON JJ has been given the following list of follow-up instructions, prescriptions, and patient education materials: IF UNABLE TO CONTACT YOUR PHYSICIAN AND YOU FEEL IT IS AN EMERGENCY, GO TO THE NEAREST EMERGENCY ROOM OR CALL 911 Follow up: With: Address: When: BRENDA MARIN [address] [place] [phone] [facility] (1) Comments: Call for followup appointment with Georgette Marin PA-c within the next 2 months or so to monitor you. Please finish your antibiotics and have a great day. Comment: PATIENT EDUCATION INFORMATION Instructions: Cystoscopy with Urethral Dilation ? Voiding after the procedure: there may be some pain, urethral bleeding, burning, urgency, frequency and blood tinged urine following the procedure. These symptoms usually resolve within 2-5 days. Drink the amount of fluid it takes to keep the urine pink to yellow or clear in color. Drinking enough water and fluids will help to ease any discomfort after your procedure. ? If you are having problems that seem out of the ordinary, please call. ? If unable to contact your physician and you feel it is an emergency, go to the nearest emergency room or call 911 ? Diet ? you may resume your normal diet. ? Activity ? you may resume your normal activities ? Call if you have a fever over 100 degrees АННА Zhang CYNTHIA J, have received the attached patient education materials/instructio ns and have verbalized understanding: May we do a follow up call? Yes No I was present when discharge instructions were given Patient Signature Date Clinican/Nurse Signature Date You may receive a survey from Conner Willett asking you to rate your care experience. Your feedback is important and will help us understand what we do well and how we can improve the quality of care we provide to you, your loved ones and our community. It?s an honor to serve you. Thank you for choosing [facility] C Urineon 07-11-2023 Bacteria identified Cx Nom (U) Microbiology PROCEDURE: Urine Culture [R1] SOURCE: U CleanCatch BODY SITE: COLLECTED DATE/TIME: 07/09/2023 11:55 EST RECEIVED DATE/TIME: 07/09/2023 18:11 EST START DATE/TIME: 07/09/2023 18:11 EST FREE TEXT SOURCE: MIAH ROE, BRENDA MARIN PA-C, BRENDA Poole FINAL REPORTS Final Report [] Verified Date/Time: 07/11/2023 10:48 EST 20,000 cfu/ml Escherichia coli 10,000 cfu/ml Proteus mirabilis SUSCEPTIBILITY RESULTS LEGEND: S=Susceptible, N/R=Not Reported, Blank=Data not available, or drug not advisable or tested, I=Intermediate, ESBL=Extended spectrum beta-lactamase, R=Resistant, TFG=Thymidine-depend ent strain, ZAHIRA=Beta-lactamase positive, DARIUS=mcg/m;(mg/L), S*=Predicted susceptible interp, R*=Predicted resistant interp EC Promir Antibiotic DARIUS Dilutn DARIUS Interp DARIUS Dilutn DARIUS Interp Amikacin <=16 S <=16 S Ampicillin <=8 S <=8 S Ampicillin/ <=8/4 S <=8/4 S Sulbactam Aztreonam <=4 S <=4 S Cefazolin <=2 S <=2 S Cefepime <=2 S <=2 S Cefoxitin <=8 S <=8 S Ceftazidime <=1 S <=1 S Ceftazidime/ <=8 S <=8 S Avibactam Ceftriaxone <=1 S <=1 S Ciprofloxacin <=1 S <=1 S Ertapenem <=0.5 S <=0.5 S Gentamicin <=4 S <=4 S Levofloxacin <=2 S <=2 S Meropenem <=1 S <=1 S Nitrofurantoin <=32 S >64 R Piperacillin/ <=16 S <=16 S Tazobactam Tetracycline <=4 S >8 R Tigecycline <=2 S Tobramycin <=4 S <=4 S Trimethoprim/ <=2/38 S <=2/38 S Sulfa Performing Locations R1: This test was performed at: [facility], [address] [place] [address], [phone] , , [facility] Comment on above: Performed By: #### 2 [id number] #### [facility] [address] [place] [id number] Ambulatory Visit Summaryon 0 07-09-2023 Ambulatory Visit Summary AARON JJ :1945 Visit Date:07/09/2023 Ambulatory Visit Instructions Your Diagnosis Chronic cystitis Your Care Team Attending Physician - BRENDA MARIN PA-C Primary Care Physician - JEREMIAH REED MD This Is Your Medications List Misc Prescription (BACLOFEN 10 MG TABLET) acetaminophen-oxycod one (acetaminophen-oxyco done 325 mg-2.5 mg oral tablet) amlodipine (amLODIPine 2.5 mg Tab) aspirin (aspirin 81 mg Oral EC Tab) busPIRone (busPIRone 10 mg Tab) ciprofloxacin (Cipro 500 mg Tab) gabapentin (gabapentin 300 mg Cap) melatonin multivitamin with minerals (Ocuvite) nortriptyline (nortriptyline 25 mg Cap) omeprazole (omeprazole 40 mg Cap-DR) Procedures Performed Cystourethroscopy with dilation of urethral stricture (06/16/2016), Appendectomy, Biopsy of breast, Hysterectomy. What to do next Scheduled Follow-Up Appointments Sunday 9:00 AM EST Where: [facility] Sunday 2:30 PM EDT Where: [facility] Medications What How Much When Instructions Unchanged acetaminophen-oxycod one (acetaminophen-oxyco done 325 mg-2.5 mg oral tablet) 1 Tablets By Mouth Every 12 hours as needed for as needed for pain Unchanged amlodipine (amLODIPine 2.5 mg Tab) 2 Tablets By Mouth Every day Unchanged aspirin (aspirin 81 mg Oral EC Tab) 1 Tablets By Mouth Every day Unchanged busPIRone (busPIRone 10 mg Tab) Unchanged ciprofloxacin (Cipro 500 mg Tab) See instructions Take 1 tab day prior to procedure and 1 tab day of procdure - afterwards Unchanged gabapentin (gabapentin 300 mg Cap) 1 Capsules By Mouth 3 times a day Unchanged melatonin Once a day (at bedtime) Unchanged Misc Prescription (BACLOFEN 10 MG TABLET) 0 Unchanged multivitamin with minerals (Ocuvite) By Mouth Every day Unchanged nortriptyline (nortriptyline 25 mg Cap) 1 Capsules By Mouth At bedtime Unchanged omeprazole (omeprazole 40 mg Cap-DR) 1 Capsules By Mouth Every day Allergies No Known Allergies Problems Ongoing - Any problem that you are currently receiving treatment for. Chronic cystitis Cigarette smoker Dorsalgia OAB (overactive bladder) Recurrent UTI Urethral stricture Historical - Any problem that you are no longer receiving treatment for. Abdominal tenderness Acute UTI Dysuria Feeling of incomplete bladder emptying Frequency of urination Nocturia Other post-traumatic urethral stricture, female Urinary urgency Weak urine stream Patient Survey You may receive a survey via text or e-mail asking about your office visit. Please share your experience with us by completing your survey. We appreciate your feedback and thank you for choosing us for your care. [facility] C Urineon 06-07-2023 Bacteria identified Cx Nom (U) Microbiology PROCEDURE: Urine Culture [R1] SOURCE: U CleanCatch BODY SITE: COLLECTED DATE/TIME: 06/05/2023 13:47 EST RECEIVED DATE/TIME: 06/05/2023 17:49 EST START DATE/TIME: 06/05/2023 17:49 EST FREE TEXT SOURCE: MIAH ROE, BRENDA MARIN PA-C, BRENDA Poole FINAL REPORTS Final Report [] Verified Date/Time: 06/07/2023 08:50 EST >100,000 cfu/ml Escherichia coli SUSCEPTIBILITY RESULTS LEGEND: S=Susceptible, N/R=Not Reported, Blank=Data not available, or drug not advisable or tested, I=Intermediate, ESBL=Extended spectrum beta-lactamase, R=Resistant, TFG=Thymidine-depend ent strain, ZAHIRA=Beta-lactamase positive, DARIUS=mcg/m;(mg/L), S*=Predicted susceptible interp, R*=Predicted resistant interp EC Antibiotic DARIUS Dilutn DARIUS Interp Amikacin <=16 S Ampicillin <=8 S Ampicillin/ <=8/4 S Sulbactam Aztreonam <=4 S Cefazolin <=2 S Cefepime <=2 S Cefoxitin <=8 S Ceftazidime <=1 S Ceftazidime/ <=8 S Avibactam Ceftriaxone <=1 S Ciprofloxacin <=1 S Ertapenem <=0.5 S Gentamicin <=4 S Levofloxacin <=2 S Meropenem <=1 S Nitrofurantoin 64 I Piperacillin/ <=16 S Tazobactam Tetracycline >8 R Tigecycline <=2 S Tobramycin <=4 S Trimethoprim/ <=2/38 S Sulfa Performing Locations R1: This test was performed at: [facility], [address] [place] [address], [phone] , , [facility] Comment on above: Performed By: #### 2 [id number] #### [facility] [address] [place] [address] Lab Reportson 06-06-2023 Lab Reports [id number] 7#1.00TIFF [facility] Screenson 06-06-2023 Screens [id number] 1.00TIFF [facility] Ambulatory Visit Summaryon 0 06-05-2023 Ambulatory Visit Summary AARON JJ :1945 Visit Date:06/05/2023 Ambulatory Visit Instructions Your Diagnosis OAB (overactive bladder) Urethral stricture Recurrent UTI Your Care Team Attending Physician - MIAH ROE, BRENDA Poole Primary Care Physician - JEREMIAH REED MD This Is Your Medications List Contact prescribing physician if questions or concerns Misc Prescription (BACLOFEN 10 MG TABLET) acetaminophen-oxycod one (acetaminophen-oxyco done 325 mg-2.5 mg oral tablet) amlodipine (amLODIPine 2.5 mg Tab) aspirin (aspirin 81 mg Oral EC Tab) busPIRone (busPIRone 10 mg Tab) gabapentin (gabapentin 300 mg Cap) melatonin multivitamin with minerals (Ocuvite) nortriptyline (nortriptyline 25 mg Cap) omeprazole (omeprazole 40 mg Cap-DR) solifenacin (Vesicare 10 mg Tab) Procedures Performed Cystourethroscopy with dilation of urethral stricture (06/16/2016), Appendectomy, Biopsy of breast, Hysterectomy. Discharge Vitals Heart Rate (Peripheral) 74 Respiratory Rate 16 Blood Pressure 134/88 Height 165 cm Height 65 in Weight 87 kg Weight 191.4 lb BMI 31.96 What to do next You Need to Schedule the Following Appointments Follow Up with CEZAR BERNAL, Cayden Hollins, [place] When: Where: [address] [place] [address] [facility] [address] [place] [address]- Medications What How Much When Instructions Unchanged acetaminophen-oxycod one (acetaminophen-oxyco done 325 mg-2.5 mg oral tablet) 1 Tablets By Mouth Every 12 hours as needed for as needed for pain Contact prescribing physician if questions or concerns Unchanged amlodipine (amLODIPine 2.5 mg Tab) 2 Tablets By Mouth Every day Contact prescribing physician if questions or concerns Unchanged aspirin (aspirin 81 mg Oral EC Tab) 1 Tablets By Mouth Every day Contact prescribing physician if questions or concerns Unchanged busPIRone (busPIRone 10 mg Tab) Contact prescribing physician if questions or concerns Unchanged gabapentin (gabapentin 300 mg Cap) 1 Capsules By Mouth 3 times a day Contact prescribing physician if questions or concerns Unchanged melatonin Once a day (at bedtime) Contact prescribing physician if questions or concerns Unchanged Misc Prescription (BACLOFEN 10 MG TABLET) 0 Contact prescribing physician if questions or concerns Unchanged multivitamin with minerals (Ocuvite) By Mouth Every day Contact prescribing physician if questions or concerns Unchanged nortriptyline (nortriptyline 25 mg Cap) 1 Capsules By Mouth At bedtime Contact prescribing physician if questions or concerns Unchanged omeprazole (omeprazole 40 mg Cap-DR) 1 Capsules By Mouth Every day Contact prescribing physician if questions or concerns Unchanged solifenacin (Vesicare 10 mg Tab) 1 Tablets By Mouth Every day Duration: 30 Days Contact prescribing physician if questions or concerns Allergies No Known Allergies Problems Ongoing - Any problem that you are currently receiving treatment for. Chronic cystitis Cigarette smoker Dorsalgia OAB (overactive bladder) Recurrent UTI Urethral stricture Historical - Any problem that you are no longer receiving treatment for. Abdominal tenderness Acute UTI Dysuria Feeling of incomplete bladder emptying Frequency of urination Nocturia Other post-traumatic urethral stricture, female Urinary urgency Weak urine stream Patient Survey You may receive a survey via text or e-mail asking about your office visit. Please share your experience with us by completing your survey. We appreciate your feedback and thank you for choosing us for your care. Education Materials Urethral Stricture Urethral stricture is narrowing of [...] women, common causes of urethral stricture include: ? Urinary tract infection (UTI). ? Sexually transmitted infection (STI). ? Use of a tube placed into the urethra to drain urine from the bladder (urinary catheter). ? Urinary tract surgery. In men, common causes of urethral stricture include: ? A severe injury to the pelvis. ? Prostate surgery. ? Injury to the penis. In many cases, the cause of urethral stricture is not known. What increases the risk? You are more likely to develop this condition if you: ? Are male. Men who have had prostate surgery are at risk of developing this condition. ? Use a urinary catheter. ? Have had urinary tract surgery. What are the signs or symptoms? The main (more content not included)... [facility] Patient Educationon 06-05-19 Patient Education Urology Urethral Stricture Urethral stricture is narrowing of [...] women, common causes of urethral stricture include: ? Urinary tract infection (UTI). ? Sexually transmitted infection (STI). ? Use of a tube placed into the urethra to drain urine from the bladder (urinary catheter). ? Urinary tract surgery. In men, common causes of urethral stricture include: ? A severe injury to the pelvis. ? Prostate surgery. ? Injury to the penis. In many cases, the cause of urethral stricture is not known. What increases the risk? You are more likely to develop this condition if you: ? Are male. Men who have had prostate surgery are at risk of developing this condition. ? Use a urinary catheter. ? Have had urinary tract surgery. What are the signs or symptoms? The main symptom of this condition is difficulty passing urine. This may cause decreased urine flow, dribbling, or spraying of urine. Other symptom of this condition may include: ? Frequent UTIs. ? Blood in the urine. ? Pain when urinating. ? Swelling of the penis in men. ? Inability to pass urine (urinary obstruction). How is this diagnosed? This condition may be diagnosed based on: ? Your medical history and a physical exam. ? Urine tests to check for infection or bleeding. ? X-rays. ? Ultrasound. ? Retrograde urethrogram. This is a type of test in which dye is injected into the urethra and then an X-ray is taken. ? Urethroscopy. This is when a thin tube with a light and camera on the end (urethroscope) is used to look at the urethra. How is this treated? This condition is treated with surgery. The type of surgery that you have depends on the severity of your condition. You may have: ? Urethral dilation. In this procedure, the narrow part of the urethra is stretched open (dilated) with dilating instruments or a small balloon. ? Urethrotomy. In this procedure, a urethroscope is placed into the urethra, and the narrow part of the urethra is cut open with a surgical blade inserted through the urethroscope. ? Open surgery. In this procedure, an incision is made in the urethra, the narrow part is removed, and the urethra is reconstructed. Follow these instructions at home: ? Take sgfc-tjz-gmoljbd and prescription medicines only as told by your health care provider. ? If you were prescribed an antibiotic medicine, take it as told by your health care provider. Do not stop taking the antibiotic even if you start to feel better. ? Drink enough fluid to keep your urine pale yellow. ? Keep all follow-up visits as told by your health care provider. This is important. Contact a health care provider if: ? You have signs of a urinary tract infection, such as: ? Frequent urination or passing small amounts of urine frequently. ? Needing to urinate urgently. ? Pain or burning with urination. ? Urine that smells bad or unusual. ? Cloudy urine. ? Pain in the lower abdomen or back. ? Trouble urinating. ? Blood in the urine. ? Vomiting or being less hungry than normal. ? Diarrhea or abdominal pain. ? Vaginal discharge, if you are female. ? Your symptoms are getting worse instead of better. Get help right away if: ? You cannot pass urine. ? You have a fever. ? You have swelling, bruising, or discoloration of your genital area. This includes the penis, scrotum, and inner thighs for men, and the outer genital organs (vulva) and inner thighs for women. ? You develop swelling in your legs. ? You have difficulty breathing. Summary ? Urethral stricture is narrowing of the tube (urethra) that carries urine from the bladder out of the body. The urethra can become narrow due to scar tissue from an injury or infection. ? This condition can make it difficult to pass urine. ? This condition is treated with surgery. The type of surgery that you have depends on the severity of your condition. ? Contact a health care provider if your symptoms get worse or you have signs of a urinary tract infection. This information is not intended to replace advice given to you by your health care provider. Make sure you discuss any questions you have with your health care provider. Document Revised: 03/07/2022 Document Reviewed: 03/07/2022 [employer] Patient Education ? 2022 [employer]. [facility] Urology Office/Clinic Noteon 06-05-2023 Urology Office/Clinic Note Chief Complaint 1yr HPI Staff Former DLS pt DX: OAB & Urethral Stricture *Vesicare 10 mg QHS Does not think Vesicare is working. Getting up 3-4x/night, every night. Denies current pain/burning and visible blood in urine. States she has had 2 UTI's since April. Was hospitalized back in March @ [facility] due to [place]. (No C&S at [facility]) Also at [place]. C&S 03/24/23 *>100k E Coli & 50-60k Proteus mirabilis *Tx'd w/macrobid. Denies leaking & urgency. PVR 32ml History of Present Illness staff HPI reviewed and agree. Review of Systems PHQ Score Initial Depression Screen Score: 0 SCORE no fever, chills, malaise, myalgia. no rash/lesions. no chest pain, palpitations, or SOB. no abdominal pain, nausea, vomiting. no unilateral calf swelling, redness, pain Physical Exam Vitals & Measurements HR: 74(Peripheral) RR: 16 BP: 134/88 HT: 65 in HT: 165 cm WT: 87 kg WT: 191.4 lb BMI: 31.96 General: nontoxic, NAD Mouth: moist mucosa Lungs: normal respiratory effort Cardio: regular rate, good distal perfusion Abdomen: nondistended, no suprapubic distention or tenderness, no CVA tenderness Neurologic: Grossly normal Skin: No rashes or suspicious lesions Assessment/Plan Former DLS pt. 1. Urethral stricture (N35.919: Unspecified urethral stricture, male, unspecified site) S/p UD done 06/16/[address] Moreno. Reports worsening frequency/urgency/no cturia despite no changes in intake. Reports increased UTIs. Sx warrant repeat dilation. -Abx sent today -Will schedule cysto/UD with either [facility]PC or PRW pending soonest available. The procedure risks, benefits, details, and treatment alternatives have been discussed with the patient. These include bleeding, infection, recurrent scar in over 50%, need for repeat dilation or other procedures, no symptom relief with dilation, among others. Full informed consent has been obtained. Will order Local anesthesia. 2. Recurrent UTI (N39.0: Urinary tract infection, site not specified) UCx: 03/22/23 - >100k E Coli, 50k Proteus mirabilis. Tx'd w/ Macrobid. Then switched to a different abx. States she has had 2 additional UTI's since April (no cx available) Was hospitalized back in March @ [facility] due to [place]. (No C&S at [facility]) Also at [place]. UA today shows trace-intact blood, positive nitrates and large leuks. -Culture to be sent today -Pt to be called w/ results & tx'd at that time, no empiric abx sent today. Persistent UTI could certainly be contributing to her sx. Ordered: Urine Culture 3. OAB (overactive bladder) (N32.81: Overactive bladder) BBS 14, although pt states she does not leak. Bothered by frequency/urgency/no cturia. Has failed Ditropan and Tolterodine. Pt stated at last visit that she had an old script of VESIcare at home, and felt she noted improvement on med in the past. Restarted medication at that time. Today pt states that medication is not helping. Does admit to drinking diet pepsi and drinking up until bedtime. I explained these things will effect her urinary sx. Pt states this has been her intake for years, no recent changes. -Recommended reducing evening fluids and reducing bladder irritants. Ordered: 77012 Measure Post Void residual urine and/or bladder capacity by US- non-imaging Body Mass Index (BMI) documented 3008F Current tobacco non-user 1036F Depression Screening Negative 3352F Discharge medications reconciled with current medications in outpatient record 1111F Most recent diastolic blood pressure 80-89 mm Hg 3079F Patient screen for fall risk: no falls in last year or 1 fall with no injury in last year 1101F Systolic BP 130-139 mm Hg (Most Recent) 3075F Urnls Dip Stick Auto w/o Microscopy POC 65169 Follow-up With When Contact Information CEZAR BERNAL, Cayden P, URL [address] [address]- Additional Instructions: Schedule cysto/UD Patient Education Urethral Stricture Documentation recorded by the umm Mantilla accurately reflects the services(s) I performed and decisions made by me. Authenticated by Brenda Marin PA-C on 06/05/2023 17:59:01. Dori Zhang, personally scribed for Brenda Marin PA-C on 06/05/2023 13:34:38. . Problem List/Past Medical History Ongoing Chronic cystitis Cigarette smoker Dorsalgia OAB (overactive bladder) Recurrent UTI Urethral stricture Historical Abdominal tenderness Acute UTI Dysuria Feeling of incomplete bladder emptying Frequency of urination Nocturia Other post-traumatic urethral stricture, female Urinary urgency Weak urine stream Procedure/Surgical History Cystourethroscopy with dilation of urethral stricture (06/16/2016), Appendectomy, Biopsy of breast, Hysterectomy. Medications acetaminophen-oxycod one 325 mg-2.5 mg oral tablet, 1 tab(s), Oral, q12hr, PRN amLODIPine 2.5 mg Tab, 5 mg= 2 tab (more content not included)... [facility] Comment on above: Result Comment: Elec tronically Signed By: BRENDA MARIN PA-C\.br\Date and Time Signed: 06/05/23 17:59 EST\.br\Electronically Co-Signed By: Dori Mantillabr\Date and Time Co-Signed: 06/05/23 13:35 EST Insurance Correspondence Off ice04-19-2023 Insurance Correspondence Office [id number] 8#1.00TIFF Normal [facility] Discharge Instructionson Discharge Instructions [id number] 8#1.00TIFF Normal [facility] Outside Recordson 04-14-2023 Outside Records [id number] 3#1.00TIFF Normal [facility] BMPon 04-13-2023 Anion gap [Moles/Vol] 14 mmol/L Normal 6-16 [facility] Comment on above: Performed By: #### 2 [id number], [id number], [id number] #### [facility] [address] [place] [address] Calcium [Mass/Vol] 9.1 mg/dL Normal 8.9-11.1 [facility] Comment on above: Performed By: #### 2 026068, [id number], [id number] #### [facility] [address] [place] [address] Chloride [Moles/Vol] 114 mmol/L High 101-111 [facility] Comment on above: Performed By: #### 2 409631, [id number], [id number] #### [facility] [address] [place] [address] CO2 [Moles/Vol] 20 mmol/L Low 21-31 [facility] Comment on above: Performed By: #### 2 409009, [id number], [id number] #### [facility] [address] [place] [address] Creatinine [Mass/Vol] 1.2 mg/dL Normal 0.5-1.3 [facility] Comment on above: Performed By: #### 2 550631, [id number], [id number] #### [facility] [address] [place] [address] Glucose [Mass/Vol] 96 mg/dL Normal 55-199 [facility] Comment on above: Result Comment: If t his glucose result represents a fasting glucose, interpretation should refer to the following reference range: 55-99 mg/dL Performed By: #### 2 102682, [id number], [id number] #### [facility] [address] [place] [address] Potassium [Moles/Vol] 3.9 mmol/L Normal 3.5-5.3 [facility] Comment on above: Performed By: #### 2 882692, [id number], [id number] #### [facility] [address] [place] [address] Sodium [Moles/Vol] 144 mmol/L Normal 135-145 [facility] Comment on above: Performed By: #### 2 006697, [id number], [id number] #### [facility] [address] [place] [address] Urea nitrogen [Mass/Vol] 29 mg/dL High 5-21 [facility] Comment on above: Performed By: #### 2 995351, 0155846, [id number] #### [facility] [address] [place] [address] Urea nitrogen/Creatinine [Mass ratio] 24 No Units High 10-20 [facility] Comment on above: Performed By: #### 2 [id number], [id number], [id number] #### [facility] [address] [place] [address] CHEMISTRYOrdered By: SYSTEM SYSTEM on 04-13-2023 Anion gap [Moles/Vol] 14 mmol/L Normal 6 - 16 mEq/L [facility] Calcium [Mass/Vol] 9.1 mg/dL Normal 8.9 - 11. 1 mg/dL [facility] Remisol Chloride [Moles/Vol] 114 mmol/L High 101 - 1 11 mmol/L [facility]isol Cholesterol [Mass/Vol] 164 mg/dL Normal 120 - 200 mg/dL [facility] Remisol Cholesterol in HDL [Mass/Vol] 62 mg/dL Invalid Interpretation Code [facility]isol Comment on above: Interpretive Data: H [...] 47 mL/min/1.73 m2 Low >=59mL/min/1 .73 m2 [facility] Chem S Comment on above: Interpretive Data: C hronic kidney disease could be indicated at eGFR's of less than 60 mL/min/1.73m2. Kidney failure is indicated at less than 15 mL/min/1.73m2. Glucose [Mass/Vol] 96 mg/dL Normal 55 - 199 mg/dL [facility]isol Comment on above: Interpretive Data: I f this glucose result represents a fasting glucose, interpretation should refer to the following reference range: 55-99 mg/dL Potassium [Moles/Vol] 3.9 mmol/L Normal 3.5 - 5.3 mmol/L [facility]isol Sodium [Moles/Vol] 144 mmol/L Normal 135 - 145 mmol/L [facility] Triglyceride [Mass/Vol] 106 mg/dL Normal <=149mg/dL [facility] Urea nitrogen [Mass/Vol] 29 mg/dL High 5 - 21 mg/dL [facility] Urea nitrogen/Creatinine [Mass ratio] 24 mg/mg High 10 - 20 [facility]isol Discharge Note-Nursingon Discharge Note-Nursing KYLE JJRichy Ruby :1945 Visit Date:04/12/2023 Inpatient Discharge Instructions Your [...] oral tablet) glucosamine oxymetazoline nasal (Afrin 0.05% [place]) Procedure History Cystourethroscopy with dilation of urethral [...] Pending Diagnostic Test Results None Pharmacy Information [facility] Discharge Instructions Follow up appts as writtenNo driving until cleared by PCP or neuroTake all medications as ordered, monitor prn medication use Previously Scheduled Follow-Up Appointments Sunday 1:00 PM EST With: MIAH ROE, BRENDA Poole Where: [facility] ED Note-Physicianon 04-13-20 ED Note-Physician Basic Information Time Seen: Abran Holguin DOCarlos 04/12/2023 12:16 Chief Complaint AMS History of [...] had a urinary tract infection diagnosed at [place] for which she is on antibiotics. She [...] vein thrombosis (DVT) prophylaxis (Z79.899: Other terminal block assembler (current) drug therapy) Depression, unspecified (F32.A: Depression, [...] 500 mL 500 mL, 500 mL, IV [id number] units/mLInjection [F], 5000 unit(s), SubCutaneous oxym0.05Spr [F], [...] of uret (more content not included)... [facility] Comment on above: Result Comment: Elec tronically Signed By: Abran Holguin DO\.br\Date and Time Signed: 04/12/23 22:13 EST Inpatient Clinical Summaryon 04-13-2023 Inpatient Clinical Summary [address] [address] Clinical Summary Person Information: Name: AARON JJ Age: 78 Years : 1945 Sex: Female PCP: JEREMIAH REED MD Marital Status: Race: White Ethnicity: Non- or Language: Nicaraguan Visit Id: Visit Reason: Altered mental status; AMS Speciality: Acuity: Enc Type: Observation Med Service: Medical Arrival: 04/12/2023 12:15:14 Discharge: Dispo Type: Admitted as IP to this Hosp Address: [address] [place] [address] [address] [place] [id number] Provider Notes: Diagnosis: 1:AMS (altered mental status); [...] Follow up: With: Address: [place]: [place] [id number] Within 1 to 2 weeks Comments: This office is closed on Fridays. Please call the office on Sunday April 16, 2023 for a follow up appiontment. Thank you. With: Address: When: JEREMIAH REED [address] [place] [address] [facility] Within 2 to 4 days Comments: Call for followup appointment With: Address: When: [facility] Comments: Call for followup appointment for anxiety/depression care. Type Location Start Finish State URO Office Visit [facility] 06/05/2023 1:00 PM 06/05/2023 1:15 PM Confirmed Patient Education Information: Confusion aspirin Normal [facility] Inpatient Patient Summaryon 04-13-2023 Inpatient Patient Summary [place] [id number] Patient Discharge Instructions PERSON INFORMATION Name: AARON JJ Date of : 1945 Current Date: 04/13/2023 12:14:32 PHYSICIANS Admitting Physician: Tessie BERNAL, Efrain Primary Care Physician: JEREMIAH REED MD PCP Comment: Discharge Diagnosis: 1:AMS (altered mental status); [...] With: Address: When: Johnnie BERNAL, ALPHONSE Choi [address] [place] [address] Within 1 to 2 weeks Comments: This office is closed on Fridays. Please call the office on Sunday April 16, 2023 for a follow up appiontment. Thank you. With: Address: When: JEREMIAH REED [facility] [place] [address] Business (1) Within 2 to 4 days Comments: Call for followup appointment With: Address: When: [facility] Comments: Call for followup appointment for anxiety/depression care. In the event that this physician does not participate in your insurance network, please consult with your insurance company to find a nearby participating provider. Type Location Start Finish State [facility] 1:00 PM 06/05/2023 1:15 PM Confirmed [...] Mouth 2 adán (more content not included)... [facility] Interdisciplinary Note - Danie e Manageron 04-13-2023 Interdisciplinary Note - Stitch Bonder Machine Operator Helper Pt is awake and alert in bed, previously rounded with Radha PENNY. Pending Neurology to see and pending MRI. Pending therapy evals, Observation status reviewed [facility] form reviewed, signed by pt and original provided. PT is independent from home, family at bedside and will transport at [place], Declines any concerns or anticipate DC needs. . PCP verified and insurance information reviewed and DME discussed. Contact information provided and white board updated. CRM returned to pt room to discuss DC plans. PT= HH and pt is agreeable to HH at [place], prefers to [facility] as she has used in past, referral to resource center, anticipate DC home today. Nursing and STATION MANAGER updated. [facility] Comment on above: Result Comment: Elec tronically Signed By: Thu ALVARES, Sallie\.br\Date and Time Signed: 04/13/23 12:17 EST Interdisciplinary Note - Ashly n 04-13-2023 Interdisciplinary Note - OT OT [facility] six clicks score 21/24 = no further OT needs. Patient requires Dist sup w/ transfers. completes Adls w/ dist sup after set up. Dc inpatient OT services as pt appears close to baseline status and has all bathroom dme already in place at home. [facility] Interdisciplinary Note - Soc ial Workeron 04-13-2023 Interdisciplinary Note - Continuous Weld Pipe Mill Supervisor This SW met with patient today to [...] any substances. SW will remain available. [facility] Lipid Panelon 04-13-2023 Cholesterol [Mass/Vol] 164 mg/dL Normal 120-200 [facility] Comment on above: Performed By: #### 2 [id number], [id number], [id number] #### [facility] [address] [place] [address] Cholesterol in HDL [Mass/Vol] 62 mg/dL Invalid Interpretation Code [facility] Comment on above: Result Comment: HDL > or equal to 60 mg/dL: Low cardiovascular risk HDL < 40 mg/dL : High cardiovascular risk Performed By: #### 2 985553, [id number], [id number] #### [facility] [facility] [address] [place] [address] Cholesterol in LDL [Mass/Vol] 73 mg/dL Normal <=129 [facility] Comment on above: Performed By: #### 2 356165, 3874721, 07881524 #### [facility] [address] [place] [address] Cholesterol in VLDL [Mass/Vol] 21 mg/dL Normal 7-40 [facility] Comment on above: Performed By: #### 2 710565, 0559818, 93088341 #### [facility] [address] [place] [address] Triglyceride [Mass/Vol] 106 mg/dL Normal <=149 [facility] Comment on above: Performed By: #### 2 472251, 6284106, 53346680 #### [facility] [address] [place] [address] MRI Brain w/o Contraston MRI Brain w/o [...] LESLEY Technologist: MAXI Technical Comments None Normal [facility] Message from Medicareon Message from Medicare [id number] #1.00TIFF Normal [facility] Monitor Recordon 04-13-2023 Monitor Record [id number] 6#1.00TIFF Normal [facility] Monitor Record [id number] 8#1.00TIFF Normal [facility] Monitor Record [id number] 0#1.00TIFF Normal [facility] eGFRon 04-13-2023 GFR/1.73 sq M.predicted among non-blacks MDRD (S/P/Bld) [Vol rate/Area] 47 mL/min/1.73 m2 Low >=59 [facility] Comment on above: Order Comment: Order added by Discern Expert. Result Comment: Speech Therapy Assistant sally kidney disease could be indicated at eGFR's of less than 60 mL/min/1.73m2. Kidney failure is indicated at less than 15 mL/min/1.73m2. Performed By: #### 2 254687, 6476897, 03345787 #### [facility] [address] [place] [address] Auto Diffon 04-12-2023 Basophils/100 WBC (Bld) 0.4 % Normal 0.0-2.0 [facility] Comment on above: Order Comment: Order Added by Discern Expert. Performed By: #### 2 137036, 51350970, 1701512, 71672413, 0776427, 01032615, 118428169, 09236802, 4050241, 1701565, 8906718, 2202230 #### [facility] [address] [place] [address] Basophils/Leukocytes Auto (Bld) [Pure # fraction] 0.1 E9/L Normal 0.0-0.2 [facility] Comment on above: Order Comment: Order Added by Casey Expert. Performed By: #### 2 483301, 18434012, 9214979, 54886530, 2022562, 45367574, 306491596, 96516456, 6328325, 0747401, 5625688, 7216964 #### [facility] [address] [place] [address] Eosinophils/100 WBC (Bld) 0.1 % Normal 0.0-8.0 [facility] Comment on above: Order Comment: Order Added by Discern Expert. Performed By: #### 2 393731, 10237029, 8670563, 12087376, 0438959, 74368944, 429142855, 80732478, 1602947, 7091859, 6887324, 4168952 #### [facility] [address] [place] [address] Eosinophils/Leukocytes Auto (Bld) [Pure # fraction] 0.0 E9/L Normal 0.0-0.5 [facility] Comment on above: Order Comment: Order Added by Discern Expert. Performed By: #### 2 878715, 45748024, 1360415, 65680827, 5792411, 81107691, 589774783, 76799603, 8156163, 2403950, 3654019, 8733682 #### [facility] [address] [place] [address] Lymphocytes/100 WBC (Bld) 9.7 % Low 14.0-50.0 [facility] Comment on above: Order Comment: Order Added by Discern Expert. Performed By: #### 2 948779, 08160468, 8759830, 32430723, 0423035, 64683915, 200583339, 71559184, 2058835, 1616653, 7538138, 1025480 #### [facility] [address] [place] [address] Lymphocytes/Leukocytes Auto (Bld) [Pure # fraction] 1.5 E9/L Normal 1.0-4.0 [facility] Comment on above: Order Comment: Order Added by Discern Expert. Performed By: #### 2 410565, 38537708, 3721704, 15378303, 5458407, 80170247, 192549359, 30263310, 1363452, 9377693, 9644607, 4338812 #### [facility] [address] [place] [address] Monocytes/100 WBC (Bld) 7.8 % Normal 4.0-14.0 [facility] Comment on above: Order Comment: Order Added by Discern Expert. Performed By: #### 2 379649, 11735951, 9991645, 54318498, 1536160, 51256170, 027419044, 49741383, 1412275, 4505386, 8315932, 9882586 #### [facility] [address] [place] [address] Monocytes/Leukocytes Auto (Bld) [Pure # fraction] 1.2 E9/L High 0.2-1.0 [facility] Comment on above: Order Comment: Order Added by Discern Expert. Performed By: #### 2 703720, 35326222, 6491842, 01957709, 7043514, 86183605, 276151021, 69232236, 0958296, 6431711, 1648448, 3192768 #### [facility] [address] [place] [address] Neutrophils/100 WBC (Bld) 82.0 % High 36.0-75.0 [facility] Comment on above: Order Comment: Order Added by Discern Expert. Performed By: #### 2 694998, 98472886, 9539222, 08020723, 6160451, 74125527, 386965699, 08343741, 9698066, 8802125, 1269564, 5015820 #### [facility] [address] [place] [address] Neutrophils/Leukocytes Auto (Bld) [Pure # fraction] 12.4 E9/L High 2.0-7.5 [facility] Comment on above: Order Comment: Order Added by Discern Expert. Performed By: #### 2 876390, 51292431, 1808245, 85414953, 0125750, 52934108, 876418380, 93932002, 5223175, 0050625, 4411327, 2446053 #### [facility] [address] [place] [address] BMPon 04-12-2023 Creatinine [Mass/Vol] 1.8 mg/dL High 0.5-1.3 [facility] Comment on above: Performed By: #### 2 063981, 92156997, 3085344, 99198339, 4297252, 20441283, 384963941, 62862100, 3446997, 7920320, 4758543, 8002867 ####[facility] [address] [place] [address] Urea nitrogen [Mass/Vol] 39 mg/dL High 5-21 [facility] Comment on above: Performed By: #### 2 226795, 84792876, 9276300, 85673974, 3578712, 71571636, 508644508, 39551530, 4192112, 6958230, 8238012, 6540941 ####[facility] [address] [place] [address] Urea nitrogen/Creatinine [Mass ratio] 22 No Units High 10-20 [facility] Comment on above: Performed By: #### 2 196277, 35421244, 3304604, 18805695, 5973598, 48948372, 095943012, 15556060, 6984534, 1939345, 0994874, 0146650 ####[facility] [address] [place] [address] Anion gap [Moles/Vol] 16 mmol/L Normal 6-16 [facility] Comment on above: Performed By: #### 2 037901, 32053744, 9899342, 20163811, 4384713, 06872420, 525227693, 64584699, 4142852, 8843267, 9155298, 2778904 ####[facility] [address] [place] [address] Calcium [Mass/Vol] 10.0 mg/dL Normal 8.9-11.1 [facility] Comment on above: Performed By: #### 2 222203, 74061244, 0018105, 80063747, 3559007, 90668526, 371997324, 54604346, 4401372, 6168022, 7154767, 3683723 ####[facility] [address] [place] [address] Chloride [Moles/Vol] 109 mmol/L Normal 101-111 [facility] Comment on above: Performed By: #### 2 010684, 52674999, 3587973, 98656139, 2416043, 58317234, 905479309, 89029953, 1444660, 1491259, 4949247, 0413083 ####[facility] [address] [place] [address] CO2 [Moles/Vol] 23 mmol/L Normal 21-31 [facility] Comment on above: Performed By: #### 2 816368, 69969327, 7817005, 94223200, 3069013, 99554527, 672731166, 31768637, 5814522, 5145388, 7707043, 6612805 ####[facility] [address] [place] [address] Glucose [Mass/Vol] 89 mg/dL Normal 55-199 [facility] Comment on above: Result Comment: If t his glucose result represents a fasting glucose, interpretation should refer to the following reference range: 55-99 mg/dL Performed By: #### 2 940590, 60035170, 3318512, 58203756, 9672397, 37137121, 399001901, 49389171, 4231164, 5780776, 0560369, 9457991 ####[facility] [address] [place] [address] Potassium [Moles/Vol] 4.3 mmol/L Normal 3.5-5.3 [facility] Comment on above: Performed By: #### 2 438218, 91637711, 9616147, 66340618, 9473850, 33301232, 659546131, 52086444, 4370156, 5628922, 4971118, 6556787 ####[facility] [address] [place] [address] Sodium [Moles/Vol] 144 mmol/L Normal 135-145 [facility] Comment on above: Performed By: #### 2 291941, 28258177, 7687403, 68258380, 3340916, 02524147, 154640220, 21903477, 6429809, 3744897, 2087520, 3773300 ####[facility] [address] [place] [address] CBC w/ Auto Diffon 3 Erythrocyte distribution width (RBC) [Ratio] 15.3 % High 10.9-14.2 [facility] Comment on above: Performed By: #### 2 817268, 26543886, 7604362, 63008363, 2078487, 08184125, 053648142, 59124591, 1452756, 7646402, 4564468, 3593110 #### [facility] [address] [place] [address] Hematocrit (Bld) [Volume fraction] 44.4 % Normal 34.0-46.0 [facility] Comment on above: Performed By: #### 2 802938, 69154018, 3870957, 14802975, 6149788, 25985492, 248696024, 60373727, 9547563, 7814102, 6001838, 1133201 #### [facility] [address] [place] [address] Hemoglobin (Bld) [Mass/Vol] 14.0 g/dL Normal 12.0-16.0 [facility] Comment on above: Performed By: #### 2 560467, 49359190, 3281232, 59309918, 3622997, 71497234, 802083216, 77478165, 4919548, 9550768, 9572128, 5247762 #### [facility] [address] [place] [address] MCH (RBC) [Entitic mass] 28.5 pg Normal 27.0-34.0 [facility] Comment on above: Performed By: #### 2 050134, 80850953, 4939524, 06740131, 3633931, 24737151, 730937695, 15171926, 3348528, 1709246, 3658225, 7669057 #### [facility] [address] [place] [address] MCHC (RBC) [Mass/Vol] 31.6 g/dL Normal 31.4-36.0 [facility] Comment on above: Performed By: #### 2 011193, 97037024, 6942611, 75057667, 6930808, 83654972, 919482719, 34979408, 1829474, 7605898, 1266213, 7800776 #### [facility] [address] [place] [address] MCV (RBC) [Entitic vol] 89.9 fL Normal 80.0-100.0 F [facility] Comment on above: Performed By: #### 2 929038, 64235866, 8203537, 94527051, 9190803, 06011084, 869748620, 73684183, 4162170, 3294793, 4821671, 6944155 #### [facility] [address] [place] [address] Platelet mean volume (Bld) [Entitic vol] 9.8 fL Normal 6.4-10.8 [facility] Comment on above: Performed By: #### 2 955100, 00137635, 7982892, 28741339, 6551362, 05168358, 010382025, 04430227, 3129302, 1032024, 2112578, 5694857 #### [facility] [address] [place] [address] Platelets (Bld) [#/Vol] 285.0 E9/L Normal 150.0-500.0 [facility] Comment on above: Performed By: #### 2 559613, 32436885, 3506169, 28486144, 1294708, 71954795, 720148586, 59482565, 1769048, 5614507, 4278695, 1287871 #### [facility] [address] [place] [address] RBC (Bld) [#/Vol] 4.9 E12/L Normal 4.3-5.9 [facility] Comment on above: Performed By: #### 2 595366, 29424874, 5880087, 51154653, 8399069, 83754960, 482903789, 78792215, 6350592, 3109053, 5132111, 2279534 #### [facility] [address] [place] [address] WBC corrected for nucl RBC Auto (Bld) [#/Vol] 15.1 E9/L High 4.0-11.0 [facility] Comment on above: Performed By: #### 2 848587, 86058980, 1959464, 40027045, 1600980, 15605227, 015021492, 73754964, 0562583, 4994762, 6211156, 0552910 #### [facility] [address] [place] [address] CHEMISTRYOrdered By: SYSTEM SYSTEM on 04-12-2023 Amphetamines [...] Sensitivity Troponin I Instructions For Use, Laly [place], December 2017) TSH Qn 0.52 m[IU]/L Normal 0.34 - 5.60 mcIU/mL [facility] Remisol Urea nitrogen [Mass/Vol] 39 mg/dL High 5 - 21 mg/dL [facility] Remisol Urea nitrogen/Creatinine [Mass ratio] 22 mg/mg High 10 - 20 [facility] Remisol CHEMISTRYOrdered By: Shauna kendall on 04-12-2023 HbA1c (Bld) [Mass fraction] 5.9 % Normal <=5.9% [facility] ChemAutoSS CHEMISTRYOrdered By: Crystal KEITH User on 04-12-2023 Glucose [Mass/Vol] 88 mg/dL Normal 55 - 99 mg/dL [facility] POC Subsection Comment on above: Result Comment: Jose matos RN/ POC Username [place] Invalid Interpretation Code [facility] POC Subsection Sodium [Moles/Vol] 951105411330 mmol/L Invalid Interpretation Code [facility] POC Subsection Sodium [Moles/Vol] 744457652 mmol/L Invalid Interpretation Code [facility] POC Subsection COAGULATIONOrdered By: Myra Grayson on 04-12-2023 aPTT Coag (PPP) [Time] 29.5 s Normal 25.1 - 36.5 second(s) [facility] Auto Coag Comment on above: Interpretive Data: [...] the same coagulation reagent and instrumentation as [facility]. Currently there are no coagulation studies available worldwide for children to 14 days, and no normal ranges. Heparin therapeutic range (represented by Anti-Factor Xa activity of 0.2 - 0.4 U/mL) corresponds to PTT of 56.6 - 109.0 sec. INR Coag (PPP) [Relative time] 0.9 {INR} Invalid Interpretation Code [facility] Auto Coag Comment on above: Interpretive Data: I NR results are specifically intended to assess patients stabilized on long-term Anticoagulation therapy suggested INR s Less Intensive Anticoagulation 2.0 3.0 Conventional Range 3.0 4.5 PT Coag (PPP) [Time] 10.4 s Normal 9.4 - 1 2.5 second(s) [facility] Auto Coag Comment on above: Interpretive Data: [...] the same coagulation reagent and instrumentation as [facility]. Currently there are no coagulation studies available worldwide for children to 14 days, and no normal ranges. CT Head or Brain w/o Marvin olsen 04-12-2023 CT Head or Brain w/o Contrast [...] MD Transcribed by: LESLEY Technologist: SOFIA Guaman [facility] CT Spine Cervical w/o Dheeraj alvarez 04-12-2023 CT Spine Cervical w/o Contrast Exam [...] MD Transcribed by: LESLEY Technologist: SOFIA Normal [facility] Capillary Glucose POCon 03-16 Glucose [Mass/Vol] 88 mg/dL Normal 55-99 [facility] Comment on above: Result Comment: Jose matos RN/ Performed By: #### 2 [id number] #### [facility] [address] [place] [address] Consent for Treatmenton 03-16 Consent for Treatment [id number] #1.00TIFF Normal [facility] ED Clinical Summaryon 2022 ED Clinical Summary [address] [address] ED Clinical Summary Person Information Name: АННАAARON Elisa/[facility] Age: 78 Years : 1945 Sex: Female Language: Nicaraguan PCP: JEREMIAH REED MD Marital Status: Visit Id: Visit Reason: Altered mental status; AMS Speciality: Acuity: 2 Enc Type: Observation Med Service: Emergency Arrival: 04/12/2023 12:15:14 Discharge: LOS: 000 04:45 Checkin: 04/12/2023 12:15:14 Checkout: 04/12/2023 17:00:36 Dispo Type: Admitted as IP to this [facility] EVENTS: Event Name Event Status Request [...] Labs Collected 04/12/2023 16:57:50 04/12/2023 16:57:50 ADDRESS: [facility] [place] [id number] PHYS DOC NOTES: MEDICAL INFORMATION: Prescriptions Given: [...] vein thrombosis (DVT) prophylaxis; Depression, unspecified Normal [facility] ED Patient Education Noteon 04-12-2023 ED Patient Education Note Normal [facility] ED Patient Summaryon 023 ED Patient Summary [place] [id number] Patient Discharge Instructions Person Information Name: АННАAARON Age: 78 Years Arrival Date: 04/12/2023 12:15:14 Discharge Diagnosis: 1:AMS (altered mental status); 2:Elevated serum creatinine; 3:HTN (hypertension); 4:Anxiety and depression; 5:Peripheral neuropathy; 6:Chronic GERD; 7:OAB (overactive bladder); 8:Obesity; 9:On deep vein thrombosis (DVT) prophylaxis; Depression, unspecified Primary Care Physician: JEREMIAH REED MD Provider Information Primary Provider: Abran Holguin DO [facility] Cook:None The exam and treatment you received in the Emergency Department were for an urgent problem and are not intended as complete care. It is important that you follow up with a doctor, nurse practitioner, or physician?s photographer's assistant for ongoing care. If your symptoms [...] opioids can be used to help relieve tykaaqej-fy-pkcrmu pain and are often prescribed following a [...] be struggling with addiction, tell your health healthcare social worker and ask for guidance or (more content not included)... Normal [facility] Ethanolon 04-12-2023 Ethanol [Mass/Vol] mg/dL Normal <=7 [facility] Comment on above: Performed By: #### 2 992025 ####[facility] [address] [place] [address] Folateon 04-12-2023 Folate [Mass/Vol] ng/mL Normal >=6.7 [facility] Comment on above: Performed By: #### 2 418637, 44222283, 6053119, 50543193, 3997255, 96480584, 192393100, 77996189, 7889604, 6238646, 1698999, 4970209 ####[facility] [address] [place] [address] HEMATOLOGYOrdered By: SYSTEM SYSTEM on 04-12-2023 Basophils/100 [...] 4.9 E12/L Normal 4.3 - 5.9 E12/L [facility] HemeAutoSS WBC corrected for nucl RBC Auto (Bld) [#/Vol] 15.1 E9/L High 4.0 - 11.0 E9/L [facility] HemeAutoSS Hep Func Panelon 04-12-2023 Albumin [Mass/Vol] 4.4 g/dL Normal 3.3-5.0 [facility] Comment on above: Performed By: #### 2 390192, 03586184, 1564319, 04786261, 0252040, 79328089, 587498019, 02092280, 6520633, 6727033, 5014772, 9256701 ####[facility] [address] [place] [address] Albumin/Globulin (S) [Mass conc ratio] 1.3 Normal 1.1-2.2 [facility] Comment on above: Performed By: #### 2 257162, 52449161, 1719650, 78259634, 5382536, 20395615, 743614992, 26875263, 4379098, 3967126, 5546399, 3691506 ####[facility] [address] [place] [address] ALP [Catalytic activity/Vol] 78 Int._Unit/L Normal 21-98 [facility] Comment on above: Performed By: #### 2 323707, 36809199, 9382591, 02111796, 5777298, 39892198, 038527553, 51100259, 3500044, 6013539, 5366754, 9972837 ####[facility] [address] [place] [address] ALT No additional P-5'-P [Catalytic activity/Vol] 22 Int._Unit/L Normal 6-46 [facility] Comment on above: Performed By: #### 2 749465, 22004951, 1146564, 40538073, 5634727, 75567393, 826408262, 79739706, 7110123, 5345328, 2684033, 2111457 ####[facility] [address] [place] [address] AST [Catalytic activity/Vol] 25 Int._Unit/L Normal 5-43 [facility] Comment on above: Performed By: #### 2 661596, 54190857, 2134474, 98896640, 5698410, 76679888, 319975204, 16034327, 9708491, 1752088, 4917756, 8605946 ####[facility] [address] [place] [address] Bilirubin [Mass/Vol] 0.7 mg/dL Normal 0.0-1.1 [facility] Comment on above: Performed By: #### 2 100691, 33399895, 3979171, 61867150, 0633321, 58221463, 606734760, 30431842, 8577732, 8671922, 9703224, 4788902 ####[facility] [address] [place] [address] Bilirubin.direct [Mass/Vol] 0.1 mg/dL Normal 0.1-0.4 [facility] Comment on above: Performed By: #### 2 548135, 88644482, 6885331, 63644555, 3307403, 40043231, 690131643, 88764337, 3848400, 6254513, 2913510, 0525440 ####[address] [address] Bilirubin.indirect [Mass or moles/Vol] 0.6 mg/dL Normal 0.1-0.9 [facility] Comment on above: Performed By: #### 2 374174, 43796059, 9195596, 94940360, 3433701, 79062117, 303091450, 04392040, 1671657, 3256878, 7529763, 3369967 ####[facility] [address] [place] [address] Globulin (S) [Mass/Vol] 3.3 g/dL Normal 1.4-4.0 [facility] Comment on above: Performed By: #### 2 107609, 75050545, 0999393, 59589442, 0769579, 51766021, 971740507, 27401292, 6765829, 4009443, 6533959, 8463087 ####[facility] [address] [place] [address] Protein [Mass/Vol] 7.7 g/dL Normal 6.0-7.8 [facility] Comment on above: Performed By: #### 2 614818, 31777831, 5123496, 68011659, 0079960, 10681216, 827991665, 24409501, 3509820, 8955055, 8643097, 6053577 ####[facility] [address] [place] [address] JziC6iry 04-12-2023 HbA1c (Bld) [Mass fraction] 5.9 % Normal <=5.9 [facility] Comment on above: Performed By: #### 2 773437, 13443986, 6164092, 18207728, 0014458, 15066864, 542155495, 52233287, 7799965, 6713107, 0011261, 4431520 ####[facility] [address] [place] [address] Magnesiumon 04-12-2023 Magnesium [Mass/Vol] 2.0 mg/dL Normal 1.3-2.4 [facility] Comment on above: Performed By: #### 2 567163, 93495891, 5797397, 02017150, 5143778, 68263552, 701020016, 62631522, 7017061, 4964075, 1519035, 9302490 ####[facility] [address] [place] [address] Monitor Recordon 04-12-2023 Monitor Record [id number] 24#1.00TIFF Normal [facility] PT & PTTon 04-12-2023 aPTT Coag (PPP) [Time] 29.5 second(s) Normal 25.1-36.5 [facility] Comment on above: Result Comment: Para [...] the same coagulation reagent and instrumentation as [facility]. Currently there are no coagulation studies available worldwide for children to 14 days, and no normal ranges. Heparin therapeutic range (represented by Anti-Factor Xa activity of 0.2 - 0.4 U/mL) corresponds to PTT of 56.6 - 109.0 sec. Performed By: #### 2 430138, 51628346, 2070679, 46552305, 7427366, 38937506, 090742413, 57803813, 8977419, 8364136, 8973009, 3731899 #### [facility] [address] [place] [address] INR Coag (PPP) [Relative time] 0.9 {INR} Invalid Interpretation Code [facility] Comment on above: Result Comment: INR results are specifically intended to assess patients stabilized on long-term Anticoagulation therapy suggested INR?s ?Less Intensive Anticoagulation? 2.0 ? 3.0 Conventional Range 3.0 ? 4.5 Performed By: #### 2 216510, 91590336, 4778637, 01119455, 3577905, 21337015, 428351268, 74724474, 1926226, 4905712, 0110730, 4687677 #### [facility] [address] [place] [address] PT Coag (PPP) [Time] 10.4 second(s) Normal 9.4-12.5 [facility] Comment on above: Result Comment: 15 [...] the same coagulation reagent and instrumentation as [facility]. Currently there are no coagulation studies available worldwide for children to 14 days, and no normal ranges. Performed By: #### 2 887429, 34040145, 4009318, 67150448, 5630110, 00480163, 928791435, 50992660, 0640164, 3626174, 4653665, 1607112 #### [facility] [address] [place] [address] Pre-Arrival Noteon Pre-Arrival Note Pre-Arrival Summary Name: , Current Date: 04/12/2023 12:18:15 EST Gender: Female Date of : Age: 88 Pre-Arrival Type: EMS ETA: 04/12/2023 12:29:00 EST Primary Care Physician: Presenting Problem: altered mental status Pre-Arrival User: Paul ALVARES, Brenda Talbert Referring Source: Location: Completion Date/Time: 04/12/2023 11:59:00 [facility] Emergency Department Pre-Hospital Report Form Vital Signs: Pre-Hospital Report: Treatment in Route: Response to Treatment: Misc. Issues: Normal [facility] RAD - MRI Screening Formon 1 06-12-2022 RAD - MRI Screening Form [id number] 7#1.00TIFF Normal [facility] TSH With T4fr Reflexon 04-12 TSH Qn 0.52 m[IU]/L Normal 0.34-5.60 [facility] Comment on above: Performed By: #### 2 464986, 33272082, 2007642, 37641770, 2171073, 74279399, 361589887, 70849924, 1169274, 4565644, 4643739, 7190137 ####[facility] [address] [place] [address] Troponin 0 Hr.on 04-12-2023 Troponin I.cardiac [Mass/Vol] 11.90 pg/mL Normal 10.10-27.10 [facility] Comment on above: Order Comment: tez LINTON RN is drawing labs and sending [id number] 04/12/2023 12:26:28 EST Result Comment: The 95% CI (Confidence Interval) PPV (Positive Predictive Value) for myocardial infarction in females is 38 pg/mL, in males 51 pg/mL. The results should be used in conjunction with clinical conditions of myocardial infarction. (Access High Sensitivity Troponin I Instructions For Use, Laly [place], December 2017) Performed By: #### 2 874262, 40817988, 5399493, 63883463, 8395527, 15378132, 110205527, 96126805, 2163951, 5736055, 3483110, 8674340 ####[facility] [address] [place] [address] U Drug Screenon 04-12-2023 Benzodiazepines Ql (U) Positive Abnormal Negative Fi [facility] Comment on above: Result Comment: Crit ical Result UD_BENZ:POS Called to ABRAN HOLGUIN AT ER by URSULA LOZANO And Read Back For Confirmation at: 04/12/2023 15:35:32\Unconfirmed by alternate method\Results verified by repeat analysis\No confirmation requested by Physican Negative Cutoff: <200 ng/mL Performed By: #### 2 148258 #### [facility] [address] [place] [address] Amphetamines Screen method >1000 ng/mL Ql (U) Negative Normal Negative [facility] Comment on above: Result Comment: Nega tive Cutoff: <1000 ng/mL Performed By: #### 2 [id number] #### [facility] [address] [place] [address] Barbiturates Screen Ql (U) Negative Normal Negative [facility] Comment on above: Result Comment: Nega tive Cutoff: <200 ng/mL Performed By: #### 2 [id number] #### [facility] [address] [place] [address] Cocaine Ql (U) Negative Normal Negative [facility] Comment on above: Result Comment: Nega tive Cutoff: <300 ng/mL Performed By: #### 2 [id number] #### [facility] [address] [place] [address] Opiates Screen Ql (U) Negative Normal Negative [facility] Comment on above: Result Comment: Nega tive Cutoff: <300 ng/mL Performed By: #### 2 [id number] #### [facility] [address] [place] [address] Phencyclidine Screen method >25 ng/mL Ql (U) Negative Normal Negative [facility] Comment on above: Result Comment: Nega tive Cutoff: <25 ng/mL These drug screen results are to be used for medical (i.e., treatment) purposes only. Unconfirmed drug screening results must not be used for non-medical purposes (e.g., employment testing, legal testing). Performed By: #### 2 [id number] #### [facility] [address] [place] [address] Tetrahydrocannabinol Screen method >50 ng/mL Ql (U) Negative Normal Negative [facility] Comment on above: Result Comment: Nega tive Cutoff: <50 ng/mL Performed By: #### 2 [id number] #### [facility] [address] [place] [address] UA With Cult Reflexon 2022 Bacteria LM Ql (Urine sed) TRACE Normal Trace [facility] Comment on above: Performed By: #### 2 [id number] #### [facility] [address] [place] [address] Bilirubin Ql (U) Negative Normal Negative [facility] Comment on above: Performed By: #### 2 [id number] #### [facility] [address] [place] [address] Clarity (U) CLEAR Normal Clear [facility] Comment on above: Performed By: #### 2 [id number] #### [facility] [address] [place] [address] Color (U) YELLOW Normal Yellow [facility] Comment on above: Performed By: #### 2 [id number] #### [facility] [address] [place] [address] Epithelial cells.squamous LM.HPF (Urine sed) [#/Area] 0-2 Normal 0-2 [facility] Comment on above: Performed By: #### 2 [id number] #### [facility] [address] [place] [address] Glucose Test strip (U) [Mass/Vol] Negative Normal Negative [facility] Comment on above: Performed By: #### 2 [id number] #### [facility] [address] [place] [address] Hemoglobin Ql (U) Negative Normal Negative [facility] Comment on above: Performed By: #### 2 539260 #### [facility] [address] [place] [address] Ketones (U) [Mass/Vol] TRACE Abnormal Negative [facility] Comment on above: Performed By: #### 2 558245 #### [facility] [address] [place] [address] Saranac.plasma/Saranac. RBC (Bld) [Mass ratio] 0-3 Normal 0-3 [facility] Comment on above: Performed By: #### 2 189032 #### [facility] [address] [place] [address] Mucus Ql (Urine sed) TRACE Normal [facility] Comment on above: Performed By: #### 2 [id number] #### [facility] [address] [place] [address] Nitrite Ql (U) Negative Normal Negative [facility] Comment on above: Performed By: #### 2 438457 #### [facility] [address] [place] [address] pH (U) 5.0 [pH] Invalid Interpretation Code 5.0-9.0 [facility] Comment on above: Performed By: #### 2 244173 #### [facility] [address] [place] [address] Protein (U) [Mass/Vol] TRACE Abnormal Negative [facility] Comment on above: Performed By: #### 2 871366 #### [facility] [address] [place] [address] Specific gravity (U) [Rel density] >=1.030 Invalid Interpretation Code 1.005-1.030 [facility] Comment on above: Performed By: #### 2 660044 #### [facility] [address] [place] [address] Type of Urine collection method Catheter Normal [facility] Comment on above: Performed By: #### 2 797205 #### [facility] [address] [place] [address] Urobilinogen Qn (U) 0.2 {Nevaeh'U}/dL Normal 0.0-1.0 [facility] Comment on above: Performed By: #### 2 883627 #### [facility] [address] [place] [address] WBC Auto Ql (U) Negative Normal Negative [facility] Comment on above: Performed By: #### 2 392044 #### [facility] [address] [place] [address] WBC casts LM.LPF (Urine sed) [#/Area] 0-3 Normal [facility] Comment on above: Performed By: #### 2 536060 #### [facility] [address] [place] [address] WBC LM.HPF (Urine sed) [#/Area] 0-5 Normal 0-5 [facility] Comment on above: Performed By: #### 2 153245 #### [facility] [address] [place] [address] URINALYSISOrdered By: Bonny Workman on 04-12-2023 Bacteria [...] Interpretation Code Negative [facility] UA Auto SS Saranac.plasma/Saranac. RBC (Bld) [Mass ratio] 0-3 /HPF Normal [...] [facility] UA Auto SS Urobilinogen Qn (U) 0.1730731 {Nevaeh'U}/dL Normal 0.0 - 1.0 EU/dL [facility] UA Auto SS WBC Auto Ql (U) Negative (04/12/23 2:32 PM) Normal Negative [facility] UA Auto SS WBC casts LM.LPF (Urine sed) [#/Area] 0-3 (04/12/23 2:32 PM) Normal [facility] UA Auto SS WBC LM.HPF (Urine sed) [#/Area] 0-5 /HPF Normal 0-5/HPF [facility] UA Auto SS Vit B12on 04-12-2023 Cobalamin (Vitamin B12) [Mass/Vol] 1018 pg/mL Normal 50-1500 [facility] Comment on above: Performed By: #### 2 [id number], [id number], 7763543, [id number], [id number], 13881358, [id number], 53676697, 4880877, 0936481, 4663365, 3396510 ####[facility] [address] [place] [address] XR Chest Single Viewon 04-12 XR Chest [...] mGy = na DAP = na Normal [facility] eGFRon 04-12-2023 GFR/1.73 sq M.predicted among non-blacks MDRD (S/P/Bld) [Vol rate/Area] 29 mL/min/1.73 m2 Low >=59 [facility] Comment on above: Order Comment: Order added by Discern Expert. Result Comment: Speech Therapy Assistant sally kidney disease could be indicated at eGFR's of less than 60 mL/min/1.73m2. Kidney failure is indicated at less than 15 mL/min/1.73m2. Performed By: #### 2 [id number], [id number], 0656318, 10136045, 0966571, 33379624, [id number], [id number], 0762515, 6238744, 3338414, 1290992 ####[facility] [address] [place] [address] XR CSPINE OBL FLEX_EXTon XR CSPINE OBL [...] by: Serena OSORIO Date: 2022-09-02 00:37 Normal [facility] MRI SHOULDER RT WO CONon MRI [...] by: EHSAN MILLER Date: 2022-08-22 09:25 Normal [facility] XR SHOULDER RT 2V or >on [...] by: BRENT MALDONADO Date: 2022-08-10 22:45 [address] [facility] CT CHEST WO CONon 06-12-2022 CT CHEST [...] EHSAN MILLER Date: 2022-06-12 16:56 Normal [facility] VIT D 1 25 DIHYDROXYon 04-24 Calcitriol(1,25 di-OH Vit D) 91.0 pg/mL Critically high 24.8-81.5 [facility] Comment on above: Performed By: #### V [id number] #### [facility] [address] [place] [address] Dr. Helio Cee CULTURE URINEon 04-23-2022 CULTURE [...] F Trimethoprim/Sulfame thoxazole <=20 S F Normal [facility] Comment on above: Performed By: #### U RCX #### [facility] [address] [place] [address] Dr. Helio Cee CBC AUTO DIFFon 04-21-2022 BASO # 0.0 103/ul Normal 0.0-0.1 [facility] Comment on above: Performed By: #### E RUR #### [facility] [address] [place] [address] Dr. Helio Cee Basophils/100 WBC (Bld) 0.4 % Normal 0.2-2.0 [facility] Comment on above: Performed By: #### E RUR #### [facility] [address] [place] [address] Dr. Helio Cee EO # 0.4 103/ul Normal 0.0-0.7 [facility] Comment on above: Performed By: #### E RUR #### [facility] [address] [place] [address] Dr. Helio Cee Eosinophils/100 WBC (Bld) 4.0 % Normal 0.9-7.0 [facility] Comment on above: Performed By: #### E RUR #### [facility] [address] [place] [address] Dr. Helio Cee Erythrocyte distribution width (RBC) [Ratio] 15.2 % Critically high 11.0-15.0 [facility] Comment on above: Performed By: #### E RUR #### [facility] [address] [place] [address] Dr. Helio Cee Hematocrit (Bld) [Volume fraction] 41.0 % Normal 36.0-48.0 [facility] Comment on above: Performed By: #### E RUR #### [facility] [address] [place] [address] Dr. Helio Cee Hemoglobin (Bld) [Mass/Vol] 12.9 g/dL Normal 12.0-16.0 [facility] Comment on above: Performed By: #### E RUR #### [facility] [address] [place] [address] Dr. Helio Cee IG # 0.04 10e3/ul Critically high 0.00-0.03 [facility] Comment on above: Performed By: #### E RUR #### [facility] [address] [place] [address] Dr. Helio Cee IG % 0.4 % Normal 0.0-0.5 [facility] Comment on above: Performed By: #### E RUR #### [facility] [address] [address] [address] Helio Cee LYMPH # 1.1 103/ul Critically low 1.2-3.8 [facility] Comment on above: Performed By: #### E RUR #### [facility] [address] [address] [address] Helio Cee Lymphocytes/100 WBC (Bld) 11.9 % Critically low 20.5-60.0 [facility] Comment on above: Performed By: #### E RUR #### [facility] [address] [address] [address] Helio Cee MANUAL DIFF REQ NO Normal [facility] Comment on above: Performed By: #### E RUR #### [facility] [address] [place] [address] Dr. Helio Cee MCH (RBC) [Entitic mass] 29.0 pg Normal 26.7-34.0 [facility] Comment on above: Performed By: #### E RUR #### [facility] [address] [place] [address] Dr. Helio Cee MCHC (RBC) [Mass/Vol] 31.5 g/dL Normal 29.9-35.2 [facility] Comment on above: Performed By: #### E RUR #### [facility] [address] [place] [address] Dr. Helio Cee MCV (RBC) [Entitic vol] 92.1 fL Normal 81.0-99.0 [facility] Comment on above: Performed By: #### E RUR #### [facility] [address] [address] [address] Helio Cee MONO # 0.4 103/ul Normal 0.3-0.8 [facility] Comment on above: Performed By: #### E RUR #### [facility] [address] [place] [address] Dr. Helio Cee Monocytes/100 WBC (Bld) 4.4 % Normal 1.7-12.0 [facility] Comment on above: Performed By: #### E RUR #### [facility] [address] [address] [address] Helio Cee NEUT # 7.3 103/ul Critically high 1.4-6.5 [facility] Comment on above: Performed By: #### E RUR #### [facility] [address] [address] [address] Helio Cee Neutrophils/100 WBC (Bld) 78.9 % Critically high 43.0-75.0 [facility] Comment on above: Performed By: #### E RUR #### [facility] [address] [address] [address] Helio Cee Platelet mean volume (Bld) [Entitic vol] 10.6 fL Normal 9.5-13.5 [facility] Comment on above: Performed By: #### E RUR #### [facility] [address] [address] [address] Helio Cee PLT 269 103/ul Normal 150-450 [facility] Comment on above: Performed By: #### E RUR #### [facility] [address] [address] [address] Helio Cee RBC 4.45 106/ul Normal 4.20-5.40 [facility] Comment on above: Performed By: #### E RUR #### [facility] [address] [address] [address] Helio Cee WBC 9.2 103/ul Normal 4.0-11.0 [facility] Comment on above: Performed By: #### E RUR #### [facility] [address] [address] [address] Helio Cee LIPID PROFILEon 04-21-2022 CHOL-HDL RATIO NORM SEE BELOW Normal [facility] Comment on above: Result Comment: 3.3 - 4.4 LOW RISK 4.4 - 7.1 AVERAGE RISK 7.1 - 11.0 MODERATE RISK >11.0 HIGH RISK Performed By: #### T SH, LIPID, CMP ####[facility] [address] [address]Dr. Helio Cee Cholesterol [Mass/Vol] 146 mg/dL Normal <=200 Th [facility] Comment on above: Performed By: #### T SH, LIPID, CMP ####[facility] [address] [id number]. Helio Cee Cholesterol in HDL [Mass/Vol] 63 mg/dL Critically high 40-60 [facility] Comment on above: Performed By: #### T SH, LIPID, CMP ####[facility] [address] [address]Dr. Helio Cee Cholesterol in LDL [Mass/Vol] 66.6 mg/dL Normal [facility] Comment on above: Performed By: #### T CAITLIN, LIPID, CMP ####[facility] [address] [address]Dr. Helio Cee Cholesterol.total/Lisa sterol in HDL [Mass ratio] 2.3 {ratio} Normal [facility] Comment on above: Performed By: #### T CAITLIN, LIPID, CMP ####[facility] [address] [address]Dr. Helio Cee HDL NORMAL > or = 60 mg/dl - LOW CARDIOVASCULAR RISK <40 mg/dl - HIGH CARDIOVASCULAR RISK Normal [facility] Comment on above: Performed By: #### T CAITLIN, LIPID, CMP ####[facility] [address] [id number]. Helio Cee LDL CALC NORMAL SEE BELOW Normal [facility] Comment on above: Result Comment: <100 mg/dl OPTIMAL 100 - 129 mg/dl NEAR OR ABOVE OPTIMAL 130 - 159 mg/dl BORDERLINE HIGH 160 - 189 mg/dl HIGH >190 mg/dl VERY HIGH Performed By: #### T SH, LIPID, CMP ####[facility] [address] [address]Dr. Helio Cee Triglyceride [Mass/Vol] 82 mg/dL Normal <=150 T [facility] Comment on above: Performed By: #### T SH, LIPID, CMP ####[facility] [address] [id number]. Helio Cee VLDL CALC 16.4 mg/dL Normal [facility] Comment on above: Performed By: #### T CAITLIN LIPID, CMP ####[facility] [address] [address]Dr. Helio Cee PROF 14(COMP METB)on 022 Albumin [Mass/Vol] 3.5 g/dL Normal 3.4-5.0 [facility] Comment on above: Performed By: #### T CAITLIN LIPID, CMP ####[facility] [address] [address]Dr. Helio Cee Albumin/Globulin [Mass ratio] 1.0 {ratio} Normal [facility] Comment on above: Performed By: #### T CAITLIN LIPID, CMP ####[facility] [address] [address]Dr. Helio Cee ALP [Catalytic activity/Vol] 98 U/L Normal 46-116 [facility] Comment on above: Performed By: #### T CAITLIN LIPID, CMP ####[facility] [address] [address]Dr. Helio Cee ALT [Catalytic activity/Vol] 23 U/L Normal 14-59 [facility] Comment on above: Performed By: #### T CAITLIN LIPID, CMP ####[facility] [address] [address]Dr. Helio Cee Anion gap [Moles/Vol] 12.2 mmol/L Normal [facility] Comment on above: Performed By: #### T CAITLIN LIPID, CMP ####[facility] [address] [address]Dr. Helio Cee AST [Catalytic activity/Vol] 15 U/L Normal 15-37 [facility] Comment on above: Performed By: #### T CAITLIN LIPID, CMP ####[facility] [address] [address]Dr. Helio Cee Bilirubin [Mass/Vol] 0.5 mg/dL Normal 0.2-1.0 [facility] Comment on above: Performed By: #### T CAITLIN, LIPID, CMP ####[facility] [address] [employer], [place] [address]Dr. Helio Cee Calcium [Mass/Vol] 9.0 mg/dL Normal 8.5-10.1 [facility] Comment on above: Performed By: #### T SH, LIPID, CMP ####[facility] [address] [address]Dr. Helio Cee Chloride [Moles/Vol] 109 mmol/L Critically high 98-107 [facility] Comment on above: Performed By: #### T SH, LIPID, CMP ####[facility] [address] [employer] [address]Dr. Helio Cee CO2 [Moles/Vol] 26.5 mmol/L Normal 21.0-32.0 [facility] Comment on above: Performed By: #### T SH, LIPID, CMP ####[facility] [address] [employer] [address]Dr. Helio Cee Creatinine [Mass/Vol] 1.22 mg/dL Critically high 0.55-1.02 [facility] Comment on above: Performed By: #### T SH, LIPID, CMP ####[facility] [address] [place] [address]Dr. Helio Cee EGFR-AF SAO TOMEAN 52 mL/min/1.73m2 Critically low >=60 [facility] Comment on above: Performed By: #### T SH, LIPID, CMP ####[facility] [address] [place] [address]Dr. Helio Cee EGFR-NON AF SAO TOMEAN 43 mL/min/1.73m2 Critically low >=60 [facility] Comment on above: Performed By: #### T SH, LIPID, CMP ####[facility] [address] [address]Dr. Helio Cee Globulin (S) [Mass/Vol] 3.4 g/dL Normal [facility] Comment on above: Performed By: #### T SH, LIPID, CMP ####[facility] [address] [address]Dr. Claudettemagan Cee Glucose [Mass/Vol] 103 mg/dL Normal 74-106 [facility] Comment on above: Performed By: #### T SH, LIPID, CMP ####[facility] [address] [address]Dr. Helio Cee Potassium [Moles/Vol] 4.7 mmol/L Normal 3.5-5.1 [facility] Comment on above: Performed By: #### T SH, LIPID, CMP ####[facility] [address] [address]Dr. Helio Cee Protein [Mass/Vol] 6.9 g/dL Normal 6.4-8.2 [facility] Comment on above: Performed By: #### T SH, LIPID, CMP ####[facility] [address] [address]Dr. Helio Cee Sodium [Moles/Vol] 143 mmol/L Normal 136-145 [facility] Comment on above: Performed By: #### T SH, LIPID, CMP ####[facility] [address] [place] [address]Dr. Helio Cee Urea nitrogen [Mass/Vol] 22.0 mg/dL Critically high 7.0-18.0 [facility] Comment on above: Performed By: #### T SH, LIPID, CMP ####[facility] [address] [place] [address]Dr. Helio Cee Urea nitrogen/Creatinine [Mass ratio] 18.0 mg/mg Normal [facility] Comment on above: Performed By: #### T SH, LIPID, CMP ####[facility] [address] [address]Dr. Helio Coleman TSHon 04-21-2022 TSH 0.592 uIU/mL Normal 0.358-3.740 [facility] Comment on above: Performed By: #### T SH, LIPID, CMP ####[facility] [address] [place] [address]Dr. Helio Cee UA RANDOM W/MICROSCOPICon BACTERIA NONE SEEN Normal NONE SEEN [facility] Comment on above: Performed By: #### U AMIC ####[facility] [address] [address]Dr. Helio Cee Bilirubin Ql (U) Negative Normal NEGATIVE [facility] Comment on above: Performed By: #### U AMIC ####[facility] [address] [place], [place] [address]Dr. Helio Cee CAST NONE SEEN Normal NONE SEEN [facility] Comment on above: Performed By: #### U AMIC ####[facility] [address] [place] [address]Dr. Helio Cee Clarity (U) CLEAR Normal CLEAR [facility] Comment on above: Performed By: #### U AMIC ####[facility] [address] [place], [place] [address]Dr. Helio Cee Color (U) DK. YELLOW Normal YELLOW [facility] Comment on above: Performed By: #### U AMIC ####[facility] [address] [place] [address]Dr. Helio Cee Crystals LM Nom (Urine sed) NONE SEEN Normal NONE SEEN [facility] Comment on above: Performed By: #### U AMIC ####[facility] [address] [place], [place] [address]Dr. Helio Cee Epithelial cells LM Ql (Urine sed) RARE Normal NONE SEEN /RARE [facility] Comment on above: Performed By: #### U AMIC ####[facility] [address] [place] [address]Dr. Helio Cee Glucose Ql (U) Negative Normal NEGATIVE [facility] Comment on above: Performed By: #### U AMIC ####[facility] [address] [employer], [place] [address]Dr. Helio Cee Hemoglobin Ql (U) Negative Normal NEGATIVE [facility] Comment on above: Performed By: #### U AMIC ####[facility] [address] [place] [address]Dr. Helio Cee Ketones Ql (U) Negative Normal NEGATIVE [facility] Comment on above: Performed By: #### U AMIC ####[facility] [address] [employer] [address]Dr. Helio Cee LEUKOCYTES Negative Normal NEGATIVE [facility] Comment on above: Performed By: #### U AMIC ####[facility] [address] [address]Dr. Helio Cee MUCOUS TRACE Abnormal NONE SEEN [facility] Comment on above: Performed By: #### U AMIC ####[facility] [address] [address]Dr. Helio Cee Nitrite Ql (U) Negative Normal NEGATIVE [facility] Comment on above: Performed By: #### U AMIC ####[facility] [address] [address]Dr. Helio Cee pH (U) 5.5 [pH] Normal 5-9 [facility] Comment on above: Performed By: #### U AMIC ####[facility] [address] [place] [address]Dr. Helio Cee RBC 0-2 Normal 0-2 [facility] Comment on above: Performed By: #### U AMIC ####[facility] [address] [place] [address]Dr. Helio Cee SPEC GRAVITY >=1.030 Abnormal 1.005-<=1.02 5 [facility] Comment on above: Performed By: #### U AMIC ####[facility] [address] [employer] [address]Dr. Helio Cee UA PROTEIN TRACE Normal NEGATIVE/ TRACE [facility] [facility] Comment on above: Performed By: #### U AMIC ####[facility] [id number] [employer], [place] [address]Dr. Helio Cee Urobilinogen Qn (U) 1.0 {Nevaeh'U}/dL Normal 0.2 - 1. 0 [facility] Comment on above: Performed By: #### U AMIC ####[facility] [id number] [employer] [employer], [place] [address]Dr. Helio Cee WBC NONE SEEN Normal NONE SEEN [facility] Comment on above: Performed By: #### U AMIC ####[facility] [address] [employer], [place] [address]Dr. Helio Cee CT CHEST WO CONon 02-22-2022 [...] by: EHSAN MILLER Date: 2022-02-22 16:51 Normal [facility] HEMOGLOBINon 02-22-2022 Hemoglobin (Bld) [Mass/Vol] 13.6 g/dL Normal 12.0-16.0 [facility] Comment on above: Performed By: #### V [id number] #### [facility] [address] [place] [address] Dr. Helio Cee XR TIB_FIB RT 2Von [...] BRENT LONG Date: 2022-01-07 21:52 Normal [facility] BNPon 11-22-2021 Natriuretic peptide B (Bld) [Mass/Vol] 1469.0 pg/mL Critically high <=900.0 [facility] Comment on above: Performed By: #### [facility] #### [facility] [address] [place] [address] Dr. Helio Cee CBC AUTO DIFFon 11-22-2021 BASO # 0.1 103/ul Normal 0.0-0.1 [facility] Comment on above: Performed By: #### E RUR #### [facility] [address] [place] [address] Dr. Helio Cee Basophils/100 WBC (Bld) 0.7 % Normal 0.2-2.0 [facility] Comment on above: Performed By: #### E RUR #### [facility] [address] [place] [address] Dr. Helio Cee EO # 0.2 103/ul Normal 0.0-0.7 [facility] Comment on above: Performed By: #### E RUR #### [facility] [address] [place] [address] Dr. Helio Cee Eosinophils/100 WBC (Bld) 1.9 % Normal 0.9-7.0 [facility] Comment on above: Performed By: #### E RUR #### [facility] [address] [place] [address] Dr. Helio Cee Erythrocyte distribution width (RBC) [Ratio] 14.3 % Normal 11.0-15.0 [facility] Comment on above: Performed By: #### E RUR #### [facility] [address] [place] [address] Dr. Helio Cee Hematocrit (Bld) [Volume fraction] 37.9 % Normal 36.0-48.0 [facility] Comment on above: Performed By: #### E RUR #### [facility] [address] [place] [address] Dr. Helio Cee Hemoglobin (Bld) [Mass/Vol] 12.0 g/dL Normal 12.0-16.0 [facility] Comment on above: Performed By: #### E RUR #### [facility] [address] [place] [address] Dr. Helio Cee IG # 0.10 10e3/ul Critically high 0.00-0.03 [facility] Comment on above: Performed By: #### E RUR #### [facility] [address] [place] [address] Dr. Helio Cee IG % 1.1 % Critically high 0.0-0.5 [facility] Comment on above: Performed By: #### E RUR #### [facility] [address] [place] [address] Dr. Helio Cee LYMPH # 0.9 103/ul Critically low 1.2-3.8 [facility] Comment on above: Performed By: #### E RUR #### [facility] [address] [place] [address] Dr. Helio Cee Lymphocytes/100 WBC (Bld) 10.1 % Critically low 20.5-60.0 [facility] Comment on above: Performed By: #### E RUR #### [facility] [address] [place] [address] Dr. eHlio Cee MANUAL DIFF REQ NO Normal [facility] Comment on above: Performed By: #### E RUR #### [facility] [address] [place] [address] Dr. Helio Cee MCH (RBC) [Entitic mass] 29.8 pg Normal 26.7-34.0 [facility] Comment on above: Performed By: #### E RUR #### [facility] [address] [place] [address] Dr. Helio Cee MCHC (RBC) [Mass/Vol] 31.7 g/dL Normal 29.9-35.2 [facility] Comment on above: Performed By: #### E RUR #### [facility] [address] [place] [address] Dr. Helio Cee MCV (RBC) [Entitic vol] 94.0 fL Normal 81.0-99.0 [facility] Comment on above: Performed By: #### E RUR #### [facility] [address] [address] [address] Helio Cee MONO # 0.7 103/ul Normal 0.3-0.8 [facility] Comment on above: Performed By: #### E RUR #### [facility] [address] [place] [address] Dr. Helio Cee Monocytes/100 WBC (Bld) 7.8 % Normal 1.7-12.0 [facility] Comment on above: Performed By: #### E RUR #### [facility] [address] [place] [address] Dr. Helio Cee NEUT # 7.2 103/ul Critically high 1.4-6.5 [facility] Comment on above: Performed By: #### E RUR #### [facility] [address] [place] [address] Dr. Helio Cee Neutrophils/100 WBC (Bld) 78.4 % Critically high 43.0-75.0 [facility] Comment on above: Performed By: #### E RUR #### [facility] [address] [place] [address] Dr. Helio Cee Platelet mean volume (Bld) [Entitic vol] 10.6 fL Normal 9.5-13.5 [facility] Comment on above: Performed By: #### E RUR #### [facility] [address] [place] [address] Dr. Helio Cee PLT 278 103/ul Normal 150-450 [facility] Comment on above: Performed By: #### E RUR #### [facility] [address] [place] [address] Dr. Helio Cee RBC 4.03 106/ul Critically low 4.20-5.40 [facility] Comment on above: Performed By: #### E RUR #### [facility] [address] [place] [address] Dr. Helio Cee WBC 9.1 103/ul Normal 4.0-11.0 [facility] Comment on above: Performed By: #### E RUR #### [facility] [id number] Helio Cee CTA CHEST WO W CONon 022 CTA CHEST WO W CON CT [...] Jay BARAHONA Date: 2021-11-22 16:47 Normal [facility] CULTURE BLOODon 11-22-2021 Microscopic examination of blood, culture Culture Observations: NO GROWTH AT 5 DAYS. Normal [facility] Comment on above: Performed By: #### B [id number] ####[facility] [address] [address]Dr. Helio Cee Microscopic examination of blood, culture Culture Observations: NO GROWTH AT 5 DAYS. Normal [facility] Comment on above: Performed By: #### B [id number] #### [facility] [address] [address] [address] Helio Cee Covid-19 PCR (CVDTB)on 11-11 SARS-CoV-2 (COVID-19) RNA KIMMY+probe Ql (Unsp spec) Not detected Normal NOT DETECTED [facility] Comment on above: Result Comment: When [...] for this test is supported by the [employer] Technician of Health and Human Service's declaration that [...] used). Performed By: #### C [id number] #### [facility] [id number] Helio Cee LACTATE/LACTIC ACIDon 2021 Lactate [Moles/Vol] mmol/L Critically low 0.4-1.9 [facility] Comment on above: Performed By: #### L ACT ####[facility] [address] [id number]. Helio Cee PROF 14(COMP METB)on 022 Albumin [Mass/Vol] 3.1 g/dL Critically low 3.4-5.0 [facility] Comment on above: Performed By: #### V [id number] #### [facility] [address] [address] [address] Helio Cee Albumin/Globulin [Mass ratio] 0.8 {ratio} Normal [facility] Comment on above: Performed By: #### V [id number] #### [facility] [address] [address] [address] Helio Cee ALP [Catalytic activity/Vol] 92 U/L Normal 46-116 [facility] Comment on above: Performed By: #### V [id number] #### [facility] [address] [address] [address] Helio Cee ALT [Catalytic activity/Vol] 23 U/L Normal 14-59 [facility] Comment on above: Performed By: #### V [id number] #### [facility] [address] [place] [address] Dr. Helio Cee Anion gap [Moles/Vol] 12.8 mmol/L Normal [facility] Comment on above: Performed By: #### V [id number] #### [facility] [address] [address] [address] Helio Cee AST [Catalytic activity/Vol] 16 U/L Normal 15-37 [facility] Comment on above: Performed By: #### V [id number] #### [facility] [address] [address] [address] Helio Cee Bilirubin [Mass/Vol] 0.6 mg/dL Normal 0.2-1.0 [facility] Comment on above: Performed By: #### V [id number] #### [facility] [address] [address] [address] Hleio Cee Calcium [Mass/Vol] 9.5 mg/dL Normal 8.5-10.1 [facility] Comment on above: Performed By: #### V [id number] #### [facility] [address] [address] [address] Helio Cee Chloride [Moles/Vol] 106 mmol/L Normal 98-107 [facility] Comment on above: Performed By: #### V [id number] #### [facility] [address] [address] [address] Helio Cee CO2 [Moles/Vol] 25.1 mmol/L Normal 21.0-32.0 [facility] Comment on above: Performed By: #### V [id number] #### [facility] [address] [address] [address] Helio Cee Creatinine [Mass/Vol] 1.06 mg/dL Critically high 0.55-1.02 [facility] Comment on above: Performed By: #### V [id number] #### [facility] [address] [address] [address] Helio Cee EGFR-AF SAO TOMEAN >60 Normal >=60 [facility] Comment on above: Performed By: #### V [id number] #### [facility] [address] [place] [address] Dr. Helio Cee EGFR-NON AF SAO TOMEAN 51 mL/min/1.73m2 Critically low >=60 [facility] Comment on above: Performed By: #### V [id number] #### [facility] [address] [address] [address] Helio Cee Globulin (S) [Mass/Vol] 4.1 g/dL Normal [facility] Comment on above: Performed By: #### V [id number] #### [facility] [address] [address] [address] Helio Cee Glucose [Mass/Vol] 99 mg/dL Normal 74-106 [facility] Comment on above: Performed By: #### V [id number] #### [facility] [address] [address] [address] Helio Cee Potassium [Moles/Vol] 3.9 mmol/L Normal 3.5-5.1 [facility] Comment on above: Performed By: #### V [id number] #### [facility] [address] [address] [address] Helio Cee Protein [Mass/Vol] 7.2 g/dL Normal 6.4-8.2 [facility] Comment on above: Performed By: #### V [id number] #### [facility] [address] [address] [address] Helio Cee Sodium [Moles/Vol] 140 mmol/L Normal 136-145 [facility] Comment on above: Performed By: #### V [id number] #### [facility] [address] [address] [address] Helio Cee Urea nitrogen [Mass/Vol] 15.0 mg/dL Normal 7.0-18.0 [facility] Comment on above: Performed By: #### V [id number] #### [facility] [address] [address] [address] Helio Cee Urea nitrogen/Creatinine [Mass ratio] 14.2 mg/mg Normal [facility] Comment on above: Performed By: #### V [id number] #### [facility] [address] [place] [address] Dr. Helio Cee TROPONIN, HIGH SENSITIVITYon 11-22-2021 HSTROP 11.6 pg/mL Normal 4.0-51.3 [facility] Comment on above: Result Comment: CUT- OFF POINTS HAVE BEEN ESTABLISHED BASED ON THE FOURTH UNIVERSAL DEFINITIONS OF MYOCARDIAL INFARCTION. THE UPPER REFERENCE LIMIT (URL) OF TROPONIN, DEFINED THE 99TH PERCENTILE OF cTnI DISTRIBUTION IN A REFERENCE POPULATION, HAS BEEN CONFIRMED THE DECISION THRESHOLD FOR ME DIAGNOSIS. Performed By: #### V [id number] #### [facility] [address] [place] [address] Dr. Helio Cee XR CHEST 2 Von [...] by: ISAC CONNOR Date: 2021-11-22 14:20 Normal [facility] BNPon 11-21-2021 Natriuretic peptide B (Bld) [Mass/Vol] 953.0 pg/mL Critically high <=900.0 [facility] Comment on above: Performed By: #### E RUR #### [facility] [address] [place] [address] Dr. Helio Cee CBC AUTO DIFFon 11-21-2021 BASO # 0.0 103/ul Normal 0.0-0.1 [facility] Comment on above: Performed By: #### E RUR #### [facility] [address] [place] [address] Dr. Helio Cee Basophils/100 WBC (Bld) 0.4 % Normal 0.2-2.0 [facility] Comment on above: Performed By: #### E RUR #### [facility] [address] [place] [address] Dr. Helio Cee EO # 0.1 103/ul Normal 0.0-0.7 [facility] Comment on above: Performed By: #### E RUR #### [facility] [address] [place] [address] Dr. Helio Cee Eosinophils/100 WBC (Bld) 1.1 % Normal 0.9-7.0 [facility] Comment on above: Performed By: #### E RUR #### [facility] [address] [place] [address] Dr. Helio Cee Erythrocyte distribution width (RBC) [Ratio] 14.6 % Normal 11.0-15.0 [facility] Comment on above: Performed By: #### E RUR #### [facility] [address] [place] [address] Dr. Helio Cee Hematocrit (Bld) [Volume fraction] 35.2 % Critically low 36.0-48.0 [facility] Comment on above: Performed By: #### E RUR #### [facility] [address] [place] [address] Dr. Helio Cee Hemoglobin (Bld) [Mass/Vol] 10.9 g/dL Critically low 12.0-16.0 [facility] Comment on above: Performed By: #### E RUR #### [facility] [address] [place] [address] Dr. Helio Cee IG # 0.07 10e3/ul Critically high 0.00-0.03 [facility] Comment on above: Performed By: #### E RUR #### [facility] [address] [place] [address] Dr. Helio Cee IG % 0.7 % Critically high 0.0-0.5 [facility] Comment on above: Performed By: #### E RUR #### [facility] [address] [place] [address] Dr. Helio Cee LYMPH # 1.4 103/ul Normal 1.2-3.8 [facility] Comment on above: Performed By: #### E RUR #### [facility] [address] [place] [address] Dr. Helio Cee Lymphocytes/100 WBC (Bld) 13.3 % Critically low 20.5-60.0 [facility] Comment on above: Performed By: #### E RUR #### [facility] [address] [place] [address] Dr. Helio Cee MANUAL DIFF REQ NO Normal [facility] Comment on above: Performed By: #### E RUR #### [facility] [address] [place] [address] Dr. Helio Cee MCH (RBC) [Entitic mass] 29.5 pg Normal 26.7-34.0 [facility] Comment on above: Performed By: #### E RUR #### [facility] [address] [place] [address] Dr. Helio Cee MCHC (RBC) [Mass/Vol] 31.0 g/dL Normal 29.9-35.2 [facility] Comment on above: Performed By: #### E RUR #### [facility] [address] [place] [address] Dr. Helio Cee MCV (RBC) [Entitic vol] 95.4 fL Normal 81.0-99.0 [facility] Comment on above: Performed By: #### E RUR #### [facility] [address] [address] [address] Helio Cee MONO # 0.8 103/ul Normal 0.3-0.8 [facility] Comment on above: Performed By: #### E RUR #### [facility] [address] [address] [address] Helio Cee Monocytes/100 WBC (Bld) 7.3 % Normal 1.7-12.0 [facility] Comment on above: Performed By: #### E RUR #### [facility] [address] [place] [address] Dr. Helio Cee NEUT # 7.9 103/ul Critically high 1.4-6.5 [facility] Comment on above: Performed By: #### E RUR #### [facility] [address] [place] [address] Dr. Helio Cee Neutrophils/100 WBC (Bld) 77.2 % Critically high 43.0-75.0 [facility] Comment on above: Performed By: #### E RUR #### [facility] [address] [place] [address] Dr. Helio Cee Platelet mean volume (Bld) [Entitic vol] 11.1 fL Normal 9.5-13.5 [facility] Comment on above: Performed By: #### E RUR #### [facility] [address] [place] [address] Dr. Helio Cee PLT 245 103/ul Normal 150-450 [facility] Comment on above: Performed By: #### E RUR #### [facility] [address] [place] [address] Dr. Helio Cee RBC 3.69 106/ul Critically low 4.20-5.40 [facility] Comment on above: Performed By: #### E RUR #### [facility] [address] [place] [address] Dr. Helio Cee WBC 10.2 103/ul Normal 4.0-11.0 [facility] Comment on above: Performed By: #### E RUR #### [facility] [address] [place] [address] Dr. Helio Cee PROF 14(COMP METB)on 022 Albumin [Mass/Vol] 2.6 g/dL Critically low 3.4-5.0 [facility] Comment on above: Performed By: #### V [id number] #### [facility] [address] [place] [address] Dr. Helio Cee Albumin/Globulin [Mass ratio] 0.7 {ratio} Normal [facility] Comment on above: Performed By: #### V [id number] #### [facility] [address] [place] [address] Dr. Helio Cee ALP [Catalytic activity/Vol] 75 U/L Normal 46-116 [facility] Comment on above: Performed By: #### V [id number] #### [facility] [address] [place] [address] Dr. Helio Cee ALT [Catalytic activity/Vol] 19 U/L Normal 14-59 [facility] Comment on above: Performed By: #### V [id number] #### [facility] [address] [place] [address] Dr. Helio Cee Anion gap [Moles/Vol] 11.7 mmol/L Normal [facility] Comment on above: Performed By: #### V [id number] #### [facility] [address] [place] [address] Dr. Helio Cee AST [Catalytic activity/Vol] 8 U/L Critically low 15-37 [facility] Comment on above: Performed By: #### V [id number] #### [facility] [address] [place] [address] Dr. Helio Cee Bilirubin [Mass/Vol] 0.3 mg/dL Normal 0.2-1.0 [facility] Comment on above: Performed By: #### V [id number] #### [facility] [address] [place] [address] Dr. Helio Cee Calcium [Mass/Vol] 9.0 mg/dL Normal 8.5-10.1 [facility] Comment on above: Performed By: #### V [id number] #### [facility] [address] [address] [address] Helio Cee Chloride [Moles/Vol] 107 mmol/L Normal 98-107 [facility] Comment on above: Performed By: #### V [id number] #### [facility] [address] [address] [address] Helio Cee CO2 [Moles/Vol] 24.7 mmol/L Normal 21.0-32.0 [facility] Comment on above: Performed By: #### V [id number] #### [facility] [address] [address] [address] Helio Cee Creatinine [Mass/Vol] 0.91 mg/dL Normal 0.55-1.02 [facility] Comment on above: Performed By: #### V [id number] #### [facility] [address] [address] [address] Helio Cee EGFR-AF SAO TOMEAN >60 Normal >=60 [facility] Comment on above: Performed By: #### V [id number] #### [facility] [address] [address] [address] Helio Cee EGFR-NON AF SAO TOMEAN 60 mL/min/1.73m2 Normal >=60 [facility] Comment on above: Performed By: #### V [id number] #### [facility] [address] [address] [address] Helio Cee Globulin (S) [Mass/Vol] 3.9 g/dL Normal [facility] Comment on above: Performed By: #### V [id number] #### [facility] [address] [address] [address] Helio Cee Glucose [Mass/Vol] 131 mg/dL Critically high 74-106 [facility] Comment on above: Performed By: #### V [id number] #### [facility] [address] [address] [address] Helio Cee Potassium [Moles/Vol] 3.4 mmol/L Critically low 3.5-5.1 [facility] Comment on above: Performed By: #### V [id number] #### [facility] [address] [place] [address] Dr. Helio Cee Protein [Mass/Vol] 6.5 g/dL Normal 6.4-8.2 [facility] Comment on above: Performed By: #### V [id number] #### [facility] [address] [place] [address] Dr. Helio Cee Sodium [Moles/Vol] 140 mmol/L Normal 136-145 [facility] Comment on above: Performed By: #### V [id number] #### [facility] [address] [place] [address] Dr. Helio Cee Urea nitrogen [Mass/Vol] 14.0 mg/dL Normal 7.0-18.0 [facility] Comment on above: Performed By: #### V [id number] #### [facility] [address] [place] [address] Dr. Helio Cee Urea nitrogen/Creatinine [Mass ratio] 15.4 mg/mg Normal [facility] Comment on above: Performed By: #### V [id number] #### [facility] [address] [place] [address] Dr. Helio Cee BNPon 11-20-2021 Natriuretic peptide B (Bld) [Mass/Vol] 781.0 pg/mL Normal <=900.0 [facility] Comment on above: Performed By: #### E RUR #### [facility] [address] [place] [address] Dr. Helio Cee CBC AUTO DIFFon 11-20-2021 BASO # 0.0 103/ul Normal 0.0-0.1 [facility] Comment on above: Performed By: #### V [id number] #### [facility] [address] [place] [address] Dr. Helio Cee Basophils/100 WBC (Bld) 0.3 % Normal 0.2-2.0 [facility] Comment on above: Performed By: #### V [id number] #### [facility] [address] [place] [address] Dr. Helio Cee EO # 0.1 103/ul Normal 0.0-0.7 [facility] Comment on above: Performed By: #### V [id number] #### [facility] [address] [place] [address] Dr. Helio Cee Eosinophils/100 WBC (Bld) 0.5 % Critically low 0.9-7.0 [facility] Comment on above: Performed By: #### V [id number] #### [facility] [address] [place] [address] Dr. Helio Cee Erythrocyte distribution width (RBC) [Ratio] 14.5 % Normal 11.0-15.0 [facility] Comment on above: Performed By: #### V [id number] #### [facility] [address] [place] [address] Dr. Helio Cee Hematocrit (Bld) [Volume fraction] 36.6 % Normal 36.0-48.0 [facility] Comment on above: Performed By: #### V [id number] #### [facility] [address] [place] [address] Dr. Helio Cee Hemoglobin (Bld) [Mass/Vol] 11.5 g/dL Critically low 12.0-16.0 [facility] Comment on above: Performed By: #### V [id number] #### [facility] [address] [place] [address] Dr. Helio Cee IG # 0.07 10e3/ul Critically high 0.00-0.03 [facility] Comment on above: Performed By: #### V [id number] #### [facility] [address] [place] [address] Dr. Helio Cee IG % 0.5 % Normal 0.0-0.5 [facility] Comment on above: Performed By: #### V [id number] #### [facility] [address] [place] [address] Dr. Helio Cee LYMPH # 1.2 103/ul Normal 1.2-3.8 [facility] Comment on above: Performed By: #### V [id number] #### [facility] [address] [place] [address] Dr. Helio Cee Lymphocytes/100 WBC (Bld) 9.5 % Critically low 20.5-60.0 [facility] Comment on above: Performed By: #### V [id number] #### [facility] [address] [place] [address] Dr. Helio Cee MANUAL DIFF REQ NO Normal [facility] Comment on above: Performed By: #### V [id number] #### [facility] [address] [place] [address] Dr. Helio Cee MCH (RBC) [Entitic mass] 30.2 pg Normal 26.7-34.0 [facility] Comment on above: Performed By: #### V [id number] #### [facility] [address] [place] [address] Dr. Helio Cee MCHC (RBC) [Mass/Vol] 31.4 g/dL Normal 29.9-35.2 [facility] Comment on above: Performed By: #### V [id number] #### [facility] [address] [place] [address] Dr. Helio Cee MCV (RBC) [Entitic vol] 96.1 fL Normal 81.0-99.0 [facility] Comment on above: Performed By: #### V [id number] #### [facility] [address] [place] [address] Dr. Helio Cee MONO # 0.7 103/ul Normal 0.3-0.8 [facility] Comment on above: Performed By: #### V [id number] #### [facility] [address] [place] [address] Dr. Helio Cee Monocytes/100 WBC (Bld) 5.7 % Normal 1.7-12.0 [facility] Comment on above: Performed By: #### V [id number] #### [facility] [address] [place] [address] Dr. Helio Cee NEUT # 10.8 103/ul Critically high 1.4-6.5 [facility] Comment on above: Performed By: #### V [id number] #### [facility] [address] [place] [address] Dr. Helio Cee Neutrophils/100 WBC (Bld) 83.5 % Critically high 43.0-75.0 [facility] Comment on above: Performed By: #### V [id number] #### [facility] [address] [address] [address] Helio Cee Platelet mean volume (Bld) [Entitic vol] 11.1 fL Normal 9.5-13.5 [facility] Comment on above: Performed By: #### V [id number] #### [facility] [address] [place] [address] Dr. Helio Cee PLT 231 103/ul Normal 150-450 [facility] Comment on above: Performed By: #### V [id number] #### [facility] [address] [place] [address] Dr. Helio Cee RBC 3.81 106/ul Critically low 4.20-5.40 [facility] Comment on above: Performed By: #### V [id number] #### [facility] [address] [place] [address] Dr. Helio Cee WBC 13.0 103/ul Critically high 4.0-11.0 [facility] Comment on above: Performed By: #### V [id number] #### [facility] [address] [place] [address] Dr. Helio Cee PROF 14(COMP METB)on 022 Albumin [Mass/Vol] 2.9 g/dL Critically low 3.4-5.0 [facility] Comment on above: Performed By: #### E RUR #### [facility] [address] [place] [address] Dr. Helio Cee Albumin/Globulin [Mass ratio] 0.8 {ratio} Normal [facility] Comment on above: Performed By: #### E RUR #### [facility] [address] [place] [address] Dr. Helio Cee ALP [Catalytic activity/Vol] 81 U/L Normal 46-116 [facility] Comment on above: Performed By: #### E RUR #### [facility] [address] [place] [address] Dr. Helio Cee ALT [Catalytic activity/Vol] 21 U/L Normal 14-59 [facility] Comment on above: Performed By: #### E RUR #### [facility] [address] [address] [address] Helio Cee Anion gap [Moles/Vol] 12.4 mmol/L Normal [facility] Comment on above: Performed By: #### E RUR #### [facility] [address] [address] [address] Helio Cee AST [Catalytic activity/Vol] 11 U/L Critically low 15-37 [facility] Comment on above: Performed By: #### E RUR #### [facility] [address] [address] [address] Helio Cee Bilirubin [Mass/Vol] 0.4 mg/dL Normal 0.2-1.0 [facility] Comment on above: Performed By: #### E RUR #### [facility] [address] [address] [address] Helio Cee Calcium [Mass/Vol] 8.7 mg/dL Normal 8.5-10.1 [facility] Comment on above: Performed By: #### E RUR #### [facility] [address] [address] [address] Helio Cee Chloride [Moles/Vol] 108 mmol/L Critically high 98-107 [facility] Comment on above: Performed By: #### E RUR #### [facility] [address] [address] [address] Helio Cee CO2 [Moles/Vol] 24.2 mmol/L Normal 21.0-32.0 [facility] Comment on above: Performed By: #### E RUR #### [facility] [address] [address] [address] Helio Cee Creatinine [Mass/Vol] 1.03 mg/dL Critically high 0.55-1.02 [facility] Comment on above: Performed By: #### E RUR #### [facility] [address] [address] [address] Helio Cee EGFR-AF SAO TOMEAN >60 Normal >=60 [facility] Comment on above: Performed By: #### E RUR #### [facility] [address] [address] [address] Helio Cee EGFR-NON AF SAO TOMEAN 52 mL/min/1.73m2 Critically low >=60 [facility] Comment on above: Performed By: #### E RUR #### [facility] [address] [address] [address] Helio Cee Globulin (S) [Mass/Vol] 3.5 g/dL Normal [facility] Comment on above: Performed By: #### E RUR #### [facility] [address] [address] [address] Helio Cee Glucose [Mass/Vol] 142 mg/dL Critically high 74-106 [facility] Comment on above: Performed By: #### E RUR #### [facility] [address] [address] [address] Helio Cee Potassium [Moles/Vol] 3.6 mmol/L Normal 3.5-5.1 [facility] Comment on above: Performed By: #### E RUR #### [facility] [address] [address] [address] Helio Cee Protein [Mass/Vol] 6.4 g/dL Normal 6.4-8.2 [facility] Comment on above: Performed By: #### E RUR #### [facility] [address] [address] [address] Helio Cee Sodium [Moles/Vol] 141 mmol/L Normal 136-145 [facility] Comment on above: Performed By: #### E RUR #### [facility] [address] [address] [address] Helio Cee Urea nitrogen [Mass/Vol] 19.0 mg/dL Critically high 7.0-18.0 [facility] Comment on above: Performed By: #### E RUR #### [facility] [address] [address] [address] Helio Cee Urea nitrogen/Creatinine [Mass ratio] 18.4 mg/mg Normal [facility] Comment on above: Performed By: #### E RUR #### [facility] [address] [place] [address] Dr. Helio Cee XR CHEST 2 Von [...] EUN BARRY Date: 2021-11-20 07:56 Normal [facility] BNPon 11-19-2021 Natriuretic peptide B (Bld) [Mass/Vol] 777.0 pg/mL Normal <=900.0 [facility] Comment on above: Performed By: #### E RUR #### [facility] [address] [place] [address] Dr. Helio Cee CBC AUTO DIFFon 11-19-2021 BASO # 0.0 103/ul Normal 0.0-0.1 [facility] Comment on above: Performed By: #### V [id number] #### [facility] [address] [place] [address] Dr. Helio Cee Basophils/100 WBC (Bld) 0.2 % Normal 0.2-2.0 [facility] Comment on above: Performed By: #### V [id number] #### [facility] [address] [place] [address] Dr. Helio Cee EO # 0.1 103/ul Normal 0.0-0.7 [facility] Comment on above: Performed By: #### V [id number] #### [facility] [address] [place] [address] Dr. Helio Cee Eosinophils/100 WBC (Bld) 0.5 % Critically low 0.9-7.0 [facility] Comment on above: Performed By: #### V [id number] #### [facility] [address] [address] [address] Helio Cee Erythrocyte distribution width (RBC) [Ratio] 14.6 % Normal 11.0-15.0 [facility] Comment on above: Performed By: #### V [id number] #### [facility] [address] [place] [address] Dr. Helio Cee Hematocrit (Bld) [Volume fraction] 37.4 % Normal 36.0-48.0 [facility] Comment on above: Performed By: #### V [id number] #### [facility] [address] [place] [address] Dr. Helio Cee Hemoglobin (Bld) [Mass/Vol] 11.5 g/dL Critically low 12.0-16.0 [facility] Comment on above: Performed By: #### V [id number] #### [facility] [address] [place] [address] Dr. Helio Cee IG # 0.07 10e3/ul Critically high 0.00-0.03 [facility] Comment on above: Performed By: #### V [id number] #### [facility] [address] [place] [address] Dr. Helio Cee IG % 0.5 % Normal 0.0-0.5 [facility] Comment on above: Performed By: #### V [id number] #### [facility] [address] [place] [address] Dr. Helio Cee LYMPH # 1.1 103/ul Critically low 1.2-3.8 [facility] Comment on above: Performed By: #### V [id number] #### [facility] [address] [place] [address] Dr. Helio Cee Lymphocytes/100 WBC (Bld) 6.8 % Critically low 20.5-60.0 [facility] Comment on above: Performed By: #### V [id number] #### [facility] [address] [place] [address] Dr. Helio Cee MANUAL DIFF REQ NO Normal [facility] Comment on above: Performed By: #### V [id number] #### [facility] [address] [place] [address] Dr. Helio Cee MCH (RBC) [Entitic mass] 30.1 pg Normal 26.7-34.0 [facility] Comment on above: Performed By: #### V [id number] #### [facility] [address] [place] [address] Dr. Helio Cee MCHC (RBC) [Mass/Vol] 30.7 g/dL Normal 29.9-35.2 [facility] Comment on above: Performed By: #### V [id number] #### [facility] [address] [place] [address] Dr. Helio Cee MCV (RBC) [Entitic vol] 97.9 fL Normal 81.0-99.0 [facility] Comment on above: Performed By: #### V [id number] #### [facility] [address] [place] [address] Dr. Helio Cee MONO # 0.8 103/ul Normal 0.3-0.8 [facility] Comment on above: Performed By: #### V [id number] #### [facility] [address] [place] [address] Dr. Helio Cee Monocytes/100 WBC (Bld) 5.3 % Normal 1.7-12.0 [facility] Comment on above: Performed By: #### V [id number] #### [facility] [address] [place] [address] Dr. Helio Cee NEUT # 13.3 103/ul Critically high 1.4-6.5 [facility] Comment on above: Performed By: #### V [id number] #### [facility] [address] [place] [address] Dr. Helio Cee Neutrophils/100 WBC (Bld) 86.7 % Critically high 43.0-75.0 [facility] Comment on above: Performed By: #### V [id number] #### [facility] [address] [place] [address] Dr. Helio Cee Platelet mean volume (Bld) [Entitic vol] 11.4 fL Normal 9.5-13.5 [facility] Comment on above: Performed By: #### V [id number] #### [facility] [address] [place] [address] Dr. Helio Cee PLT 215 103/ul Normal 150-450 [facility] Comment on above: Performed By: #### V [id number] #### [facility] [address] [place] [address] Dr. Helio Cee RBC 3.82 106/ul Critically low 4.20-5.40 [facility] Comment on above: Performed By: #### V [id number] #### [facility] [address] [place] [address] Dr. Helio Cee WBC 15.3 103/ul Critically high 4.0-11.0 [facility] Comment on above: Performed By: #### V [id number] #### [facility] [address] [place] [address] Dr. Helio Cee PROF 14(COMP METB)on 022 Albumin [Mass/Vol] 2.8 g/dL Critically low 3.4-5.0 [facility] Comment on above: Performed By: #### E RUR #### [facility] [address] [place] [address] Dr. Helio Cee Albumin/Globulin [Mass ratio] 0.8 {ratio} Normal [facility] Comment on above: Performed By: #### E RUR #### [facility] [address] [place] [address] Dr. Helio Cee ALP [Catalytic activity/Vol] 74 U/L Normal 46-116 [facility] Comment on above: Performed By: #### E RUR #### [facility] [address] [place] [address] Dr. Helio Cee ALT [Catalytic activity/Vol] 21 U/L Normal 14-59 [facility] Comment on above: Performed By: #### E RUR #### [facility] [address] [place] [address] Dr. Helio Cee Anion gap [Moles/Vol] 13.5 mmol/L Normal [facility] Comment on above: Performed By: #### E RUR #### [facility] [address] [address] [address] Helio Cee AST [Catalytic activity/Vol] 11 U/L Critically low 15-37 [facility] Comment on above: Performed By: #### E RUR #### [facility] [address] [address] [address] Helio Cee Bilirubin [Mass/Vol] 0.5 mg/dL Normal 0.2-1.0 [facility] Comment on above: Performed By: #### E RUR #### [facility] [address] [address] [address] Helio Cee Calcium [Mass/Vol] 8.4 mg/dL Critically low 8.5-10.1 [facility] Comment on above: Performed By: #### E RUR #### [facility] [address] [place] [address] Dr. Helio Cee Chloride [Moles/Vol] 107 mmol/L Normal 98-107 [facility] Comment on above: Performed By: #### E RUR #### [facility] [address] [place] [address] Dr. Helio Cee CO2 [Moles/Vol] 21.0 mmol/L Normal 21.0-32.0 [facility] Comment on above: Performed By: #### E RUR #### [facility] [address] [place] [address] Dr. Helio Cee Creatinine [Mass/Vol] 1.07 mg/dL Critically high 0.55-1.02 [facility] Comment on above: Performed By: #### E RUR #### [facility] [address] [place] [address] Dr. Helio Cee EGFR-AF SAO TOMEAN >60 Normal >=60 [facility] Comment on above: Performed By: #### E RUR #### [facility] [address] [place] [address] Dr. Helio Cee EGFR-NON AF SAO TOMEAN 50 mL/min/1.73m2 Critically low >=60 [facility] Comment on above: Performed By: #### E RUR #### [facility] [address] [address] [address] Helio Cee Globulin (S) [Mass/Vol] 3.4 g/dL Normal [facility] Comment on above: Performed By: #### E RUR #### [facility] [address] [place] [address] Dr. Helio Cee Glucose [Mass/Vol] 109 mg/dL Critically high 74-106 [facility] Comment on above: Performed By: #### E RUR #### [facility] [address] [place] [address] Dr. Helio Cee Potassium [Moles/Vol] 3.5 mmol/L Normal 3.5-5.1 [facility] Comment on above: Performed By: #### E RUR #### [facility] [address] [place] [address] Dr. Helio Cee Protein [Mass/Vol] 6.2 g/dL Critically low 6.4-8.2 [facility] Comment on above: Performed By: #### E RUR #### [facility] [address] [place] [address] Dr. Helio Cee Sodium [Moles/Vol] 138 mmol/L Normal 136-145 [facility] Comment on above: Performed By: #### E RUR #### [facility] [address] [place] [address] Dr. Helio Cee Urea nitrogen [Mass/Vol] 25.0 mg/dL Critically high 7.0-18.0 [facility] Comment on above: Performed By: #### E RUR #### [facility] [address] [place] [address] Dr. Helio Cee Urea nitrogen/Creatinine [Mass ratio] 23.4 mg/mg Normal [facility] Comment on above: Performed By: #### E RUR #### [facility] [address] [place] [address] Dr. Helio Cee BNPon 11-18-2021 Natriuretic peptide B (Bld) [Mass/Vol] 386.0 pg/mL Normal <=900.0 [facility] Comment on above: Performed By: #### B CONTACT CENTER REPRESENTATIVE, HSTROPN, BMP ####[facility] [id number] [address]Dr[address] Helio Cee CBC AUTO DIFFon 11-18-2021 BASO # 0.0 103/ul Normal 0.0-0.1 [facility] Comment on above: Performed By: #### V [id number] #### [facility] [address] [place] [address] Dr. Helio Cee Basophils/100 WBC (Bld) 0.3 % Normal 0.2-2.0 [facility] Comment on above: Performed By: #### V [id number] #### [facility] [address] [place] [address] Dr. Helio Cee EO # 0.0 103/ul Normal 0.0-0.7 [facility] Comment on above: Performed By: #### V [id number] #### [facility] [address] [place] [address] Dr. Helio Cee Eosinophils/100 WBC (Bld) 0.1 % Critically low 0.9-7.0 [facility] Comment on above: Performed By: #### V [id number] #### [facility] [address] [place] [address] Dr. Helio Cee Erythrocyte distribution width (RBC) [Ratio] 14.4 % Normal 11.0-15.0 [facility] Comment on above: Performed By: #### V [id number] #### [facility] [address] [place] [address] Dr. Helio Cee Hematocrit (Bld) [Volume fraction] 43.6 % Normal 36.0-48.0 [facility] Comment on above: Performed By: #### V [id number] #### [facility] [address] [place] [address] Dr. Helio Cee Hemoglobin (Bld) [Mass/Vol] 13.4 g/dL Normal 12.0-16.0 [facility] Comment on above: Performed By: #### V [id number] #### [facility] [address] [place] [address] Dr. Helio Cee IG # 0.03 10e3/ul Normal 0.00-0.03 [facility] Comment on above: Performed By: #### V [id number] #### [facility] [address] [place] [address] Dr. Helio Cee IG % 0.3 % Normal 0.0-0.5 [facility] Comment on above: Performed By: #### V [id number] #### [facility] [address] [place] [address] Dr. Helio Cee LYMPH # 0.4 103/ul Critically low 1.2-3.8 [facility] Comment on above: Performed By: #### V [id number] #### [facility] [address] [place] [address] Dr. Helio Cee Lymphocytes/100 WBC (Bld) 4.0 % Critically low 20.5-60.0 [facility] Comment on above: Performed By: #### V [id number] #### [facility] [address] [place] [address] Dr. Helio Cee MANUAL DIFF REQ NO Normal [facility] Comment on above: Performed By: #### V [id number] #### [facility] [address] [place] [address] Dr. Helio Cee MCH (RBC) [Entitic mass] 29.6 pg Normal 26.7-34.0 [facility] Comment on above: Performed By: #### V [id number] #### [facility] [address] [place] [address] Dr. Helio Cee MCHC (RBC) [Mass/Vol] 30.7 g/dL Normal 29.9-35.2 [facility] Comment on above: Performed By: #### V [id number] #### [facility] [address] [place] [address] Dr. Helio Cee MCV (RBC) [Entitic vol] 96.5 fL Normal 81.0-99.0 [facility] Comment on above: Performed By: #### V [id number] #### [facility] [address] [place] [address] Dr. Helio Cee MONO # 0.6 103/ul Normal 0.3-0.8 [facility] Comment on above: Performed By: #### V [id number] #### [facility] [address] [place] [address] Dr. Helio Cee Monocytes/100 WBC (Bld) 5.4 % Normal 1.7-12.0 [facility] Comment on above: Performed By: #### V [id number] #### [facility] [address] [place] [address] Dr. Helio Cee NEUT # 9.7 103/ul Critically high 1.4-6.5 [facility] Comment on above: Performed By: #### V [id number] #### [facility] [address] [place] [address] Dr. Helio Cee Neutrophils/100 WBC (Bld) 89.9 % Critically high 43.0-75.0 [facility] Comment on above: Performed By: #### V [id number] #### [facility] [address] [place] [address] Dr. Helio Cee Platelet mean volume (Bld) [Entitic vol] 10.9 fL Normal 9.5-13.5 [facility] Comment on above: Performed By: #### V [id number] #### [facility] [address] [place] [address] Dr. Helio Cee PLT 265 103/ul Normal 150-450 [facility] Comment on above: Performed By: #### V [id number] #### [facility] [address] [place] [address] Dr. Helio Cee RBC 4.52 106/ul Normal 4.20-5.40 [facility] Comment on above: Performed By: #### V [id number] #### [facility] [address] [place] [address] Dr. Helio Cee WBC 10.7 103/ul Normal 4.0-11.0 [facility] Comment on above: Performed By: #### V [id number] #### [facility] [address] [place] [address] Dr. Helio Cee CULTURE BLOODon 11-18-2021 Microscopic examination of blood, culture Culture Observations: NO GROWTH AT 5 DAYS. Normal [facility] Comment on above: Performed By: #### B [id number] #### [facility] [address] [place] [address] Dr. Helio Cee Microscopic examination of blood, culture Culture Observations: NO GROWTH AT 5 DAYS. Normal [facility] Comment on above: Performed By: #### B [id number] #### [facility] [address] [place] [address] Dr. Helio Cee Covid-19 PCR ([facility])on SARS-CoV-2 (COVID-19) RNA KIMMY+probe Ql (Unsp spec) Not detected Normal NOT DETECTED [facility] Comment on above: Result Comment: When [...] for this test is supported by the Overhead [employer] Technician of Health and Human Service's declaration that [...] used). Performed By: #### E RUR #### [facility] [address] [place] [address] Dr. Helio Cee ER URINE PROFILEon 2 Bilirubin Ql (U) Negative Normal NEGATIVE [facility] Comment on above: Performed By: #### E RUR #### [facility] [address] [place] [address] Dr. Helio Cee Clarity (U) CLEAR Normal CLEAR [facility] Comment on above: Performed By: #### E RUR #### [facility] [address] [place] [address] Dr. Helio Cee Color (U) LT. YELLOW Normal YELLOW [facility] Comment on above: Performed By: #### E RUR #### [facility] [address] [place] [address] Dr. Helio NAVARRETE A micrscopic examination will be performed if indicated. Normal [facility] Comment on above: Performed By: #### E RUR #### [facility] [address] [place] [address] Dr. Helio Cee Glucose Ql (U) Negative Normal NEGATIVE [facility] Comment on above: Performed By: #### E RUR #### [facility] [address] [place] [address] Dr. Helio eCe Hemoglobin Ql (U) Negative Normal NEGATIVE [facility] Comment on above: Performed By: #### E RUR #### [facility] [address] [place] [address] Dr. Helio Cee Ketones Ql (U) Negative Normal NEGATIVE [facility] Comment on above: Performed By: #### E RUR #### [facility] [address] [place] [address] Dr. Helio Cee LEUKOCYTES Negative Normal NEGATIVE [facility] Comment on above: Performed By: #### E RUR #### [facility] [address] [place] [address] Dr. Helio Cee Nitrite Ql (U) Negative Normal NEGATIVE [facility] Comment on above: Performed By: #### E RUR #### [facility] [address] [place] [address] Dr. Helio Cee pH (U) 5.5 [pH] Normal 5-9 [facility] Comment on above: Performed By: #### E RUR #### [facility] [address] [place] [address] Dr. Helio Cee SPEC GRAVITY 1.015 Normal 1.005-<=1.02 5 [facility] Comment on above: Performed By: #### E RUR #### [facility] [address] [place] [address] Dr. Helio Cee UA PROTEIN Negative Normal NEGATIVE/ TRACE [facility] Comment on above: Performed By: #### E RUR #### [facility] [address] [address] [address] Helio Cee UR MICRO IND NOT INDICATED Normal [facility] Comment on above: Performed By: #### E RUR #### [facility] [address] [address] [address] Helio Cee Urobilinogen Qn (U) 0.2 {Nevaeh'U}/dL Normal 0.2 - 1. 0 [facility] Comment on above: Performed By: #### E RUR #### [facility] [address] [address] [address] Helio Cee PROF CHEM 8 (BAS METB)on Anion gap [Moles/Vol] 13.6 mmol/L Normal [facility] Comment on above: Performed By: #### B CONTACT CENTER REPRESENTATIVE, HSTROPN, BMP ####[facility] [address] [address]Dr. Helio Cee Calcium [Mass/Vol] 9.1 mg/dL Normal 8.5-10.1 [facility] Comment on above: Performed By: #### B CONTACT CENTER REPRESENTATIVE, HSTROPN, BMP ####[facility] [address] [address]Dr. Helio Cee Chloride [Moles/Vol] 110 mmol/L Critically high 98-107 [facility] Comment on above: Performed By: #### B CONTACT CENTER REPRESENTATIVE, HSTROPN, BMP ####[facility] [address] [address]Dr. Helio Cee CO2 [Moles/Vol] 22.9 mmol/L Normal 21.0-32.0 [facility] Comment on above: Performed By: #### B CONTACT CENTER REPRESENTATIVE, HSTROPN, BMP ####[facility] [address] [address]Dr. Helio Cee Creatinine [Mass/Vol] 1.47 mg/dL Critically high 0.55-1.02 [facility] Comment on above: Performed By: #### B CONTACT CENTER REPRESENTATIVE, HSTROPN, BMP ####[facility] [address] [address]Dr. Yilan Cee EGFR-AF SAO TOMEAN 42 mL/min/1.73m2 Critically low >=60 [facility] Comment on above: Performed By: #### B CONTACT CENTER REPRESENTATIVE, HSTROPN, BMP ####[facility] [address] [employer] [address]Dr. Yilan Cee EGFR-NON AF SAO TOMEAN 35 mL/min/1.73m2 Critically low >=60 [facility] Comment on above: Performed By: #### B CONTACT CENTER REPRESENTATIVE, HSTROPN, BMP ####[facility] [address] [employer] [address]Dr. Helio Cee Glucose [Mass/Vol] 120 mg/dL Critically high 74-106 [facility] Comment on above: Performed By: #### B CONTACT CENTER REPRESENTATIVE, HSTROPN, BMP ####[facility] [address] [employer] [address]Dr. Claudettelan Cee Potassium [Moles/Vol] 3.5 mmol/L Normal 3.5-5.1 [facility] Comment on above: Performed By: #### B CONTACT CENTER REPRESENTATIVE, HSTROPN, BMP ####[facility] [address] [employer] [address]Dr. Helio Cee Sodium [Moles/Vol] 143 mmol/L Normal 136-145 [facility] Comment on above: Performed By: #### B CONTACT CENTER REPRESENTATIVE, HSTROPN, BMP ####[facility] [address] [employer] [employer] [address]Dr. Helio Cee Urea nitrogen [Mass/Vol] 29.0 mg/dL Critically high 7.0-18.0 [facility] Comment on above: Performed By: #### B CONTACT CENTER REPRESENTATIVE, HSTROPN, BMP ####[facility] [address] [employer] [address]Dr. Helio Cee Urea nitrogen/Creatinine [Mass ratio] 19.7 mg/mg Normal [facility] Comment on above: Performed By: #### B CONTACT CENTER REPRESENTATIVE, HSTROPN, BMP ####[facility] [address] [place], [place] [address]BbCarlos Cee TROPONIN, HIGH SENSITIVITYon 11-18-2021 HSTROP 8.2 pg/mL Normal 4.0-51.3 [facility] Comment on above: Result Comment: CUT- OFF POINTS HAVE BEEN ESTABLISHED BASED ON THE FOURTH UNIVERSAL DEFINITIONS OF MYOCARDIAL INFARCTION. THE UPPER REFERENCE LIMIT (URL) OF TROPONIN, DEFINED THE 99TH PERCENTILE OF cTnI DISTRIBUTION IN A REFERENCE POPULATION, HAS BEEN CONFIRMED THE DECISION THRESHOLD FOR ME DIAGNOSIS. Performed By: #### B CONTACT CENTER REPRESENTATIVE, HSTROPN, BMP ####[facility] [address] [place], [place] [address]Rp. Helio Cee XR CHEST 1 Von 11-18-2021 [...] by: EHSAN MILLER Date: 2021-11-18 10:38 Normal [facility] BNPon 10-25-2021 Natriuretic peptide B (Bld) [Mass/Vol] 396.0 pg/mL Normal <=900.0 [facility] Comment on above: Performed By: #### V [id number] #### [facility] [address] [address] [address] Helio Cee CBC AUTO DIFFon 10-25-2021 BASO # 0.1 103/ul Normal 0.0-0.1 [facility] Comment on above: Performed By: #### E RUR #### [facility] [address] [address] [address] Helio Cee Basophils/100 WBC (Bld) 1.0 % Normal 0.2-2.0 [facility] Comment on above: Performed By: #### E RUR #### [facility] [address] [place] [address] Dr. Helio Cee EO # 0.2 103/ul Normal 0.0-0.7 [facility] Comment on above: Performed By: #### E RUR #### [facility] [address] [place] [address] Dr. Helio Cee Eosinophils/100 WBC (Bld) 2.7 % Normal 0.9-7.0 [facility] Comment on above: Performed By: #### E RUR #### [facility] [address] [place] [address] Dr. Helio Cee Erythrocyte distribution width (RBC) [Ratio] 14.6 % Normal 11.0-15.0 [facility] Comment on above: Performed By: #### E RUR #### [facility] [address] [place] [address] Dr. Helio Cee Hematocrit (Bld) [Volume fraction] 44.8 % Normal 36.0-48.0 [facility] Comment on above: Performed By: #### E RUR #### [facility] [address] [place] [address] Dr. Helio Cee Hemoglobin (Bld) [Mass/Vol] 13.8 g/dL Normal 12.0-16.0 [facility] Comment on above: Performed By: #### E RUR #### [facility] [address] [place] [address] Dr. Helio Cee IG # 0.03 10e3/ul Normal 0.00-0.03 [facility] Comment on above: Performed By: #### E RUR #### [facility] [address] [place] [address] Dr. Helio Cee IG % 0.3 % Normal 0.0-0.5 [facility] Comment on above: Performed By: #### E RUR #### [facility] [address] [place] [address] Dr. Helio Cee LYMPH # 1.6 103/ul Normal 1.2-3.8 [facility] Comment on above: Performed By: #### E RUR #### [facility] [address] [address] [address] Helio Cee Lymphocytes/100 WBC (Bld) 18.5 % Critically low 20.5-60.0 [facility] Comment on above: Performed By: #### E RUR #### [facility] [address] [place] [address] Dr. Helio Cee MANUAL DIFF REQ NO Normal [facility] Comment on above: Performed By: #### E RUR #### [facility] [address] [place] [address] Dr. Helio Cee MCH (RBC) [Entitic mass] 29.9 pg Normal 26.7-34.0 [facility] Comment on above: Performed By: #### E RUR #### [facility] [address] [place] [address] Dr. Helio Cee MCHC (RBC) [Mass/Vol] 30.8 g/dL Normal 29.9-35.2 [facility] Comment on above: Performed By: #### E RUR #### [facility] [address] [place] [address] Dr. Helio Cee MCV (RBC) [Entitic vol] 97.2 fL Normal 81.0-99.0 [facility] Comment on above: Performed By: #### E RUR #### [facility] [address] [place] [address] Dr. Helio Cee MONO # 0.6 103/ul Normal 0.3-0.8 [facility] Comment on above: Performed By: #### E RUR #### [facility] [address] [place] [address] Dr. Helio Cee Monocytes/100 WBC (Bld) 7.0 % Normal 1.7-12.0 [facility] Comment on above: Performed By: #### E RUR #### [facility] [address] [place] [address] Dr. Helio Cee NEUT # 6.1 103/ul Normal 1.4-6.5 [facility] Comment on above: Performed By: #### E RUR #### [facility] [address] [address] [address] Helio Cee Neutrophils/100 WBC (Bld) 70.5 % Normal 43.0-75.0 [facility] Comment on above: Performed By: #### E RUR #### [facility] [address] [address] [address] Helio Cee Platelet mean volume (Bld) [Entitic vol] 11.0 fL Normal 9.5-13.5 [facility] Comment on above: Performed By: #### E RUR #### [facility] [address] [address] [address] Helio Cee PLT 292 103/ul Normal 150-450 [facility] Comment on above: Performed By: #### E RUR #### [facility] [address] [place] [address] Dr. Helio Cee RBC 4.61 106/ul Normal 4.20-5.40 [facility] Comment on above: Performed By: #### E RUR #### [facility] [address] [place] [address] Dr. Helio Cee WBC 8.6 103/ul Normal 4.0-11.0 [facility] Comment on above: Performed By: #### E RUR #### [facility] [address] [place] [address] Dr. Helio Cee ECHOCARDIO M/2D COMPLETEon 0 10-25-2021 ECHOCARDIO M/2D COMPLETE Patient: AARON JJ Exam Date: 10/25/2021 : 1945 Gender:F Ordering : DR JEREMIAH REED M.D. Admission #: [id number] Family : Order #: [id number] CLICK HERE TO VIEW EXAM ECHOCARDIOGRAM REPORT [...] Area(A4C): 20.40 cm2 Left Atrium Systolic Volume(A2C): 25126 mm3 Left Atrium Systolic Volume(A4C): 87020 mm3 Mitral Valve MV E to A Ratio: 0.80 Deceleration Randolph: 4670 mm/s2 Mitral Valve A-Wave Peak Velocity: [...] Cheema M.D. on 10/25/2021 at 19:[address] [facility] MAMM SCREEN 3D EBONI CADon 10-25-2021 MG MAMM SCREEN 3D EBONI CAD Patient: AARON JJ Exam Date: 10/25/2021 : 1945 Gender:F Ordering : DR JEREMIAH REED M.D. Admission #: [id number] Family : Order #: [id number] CLICK HERE TO VIEW EXAM RADIOLOGY REPORT [...] breast cancer at age 72. LOCATION: [facility] BREAST COMPOSITION: Heterogeneously dense,which may obscure [...] Miller M.D. on 10/25/2021 at 15:33 Normal [facility] PROF 14(COMP METB)on 06-14-2 022 Albumin [Mass/Vol] 3.8 g/dL Normal 3.4-5.0 [facility] Comment on above: Performed By: #### V [id number] #### [facility] [address] [place] [address] Dr. Helio Cee Albumin/Globulin [Mass ratio] 1.1 {ratio} Normal [facility] Comment on above: Performed By: #### V [id number] #### [facility] [address] [address] [address] Helio Cee ALP [Catalytic activity/Vol] 97 U/L Normal 46-116 [facility] Comment on above: Performed By: #### V [id number] #### [facility] [address] [place] [address] Dr. Helio Cee ALT [Catalytic activity/Vol] 31 U/L Normal 14-59 [facility] Comment on above: Performed By: #### V [id number] #### [facility] [address] [place] [address] Dr. Helio Cee Anion gap [Moles/Vol] 11.0 mmol/L Normal [facility] Comment on above: Performed By: #### V [id number] #### [facility] [address] [place] [address] Dr. Helio Cee AST [Catalytic activity/Vol] 13 U/L Critically low 15-37 [facility] Comment on above: Performed By: #### V [id number] #### [facility] [address] [place] [address] Dr. Helio Cee Bilirubin [Mass/Vol] 0.4 mg/dL Normal 0.2-1.0 [facility] Comment on above: Performed By: #### V [id number] #### [facility] [address] [address] [address] Helio Cee Calcium [Mass/Vol] 9.3 mg/dL Normal 8.5-10.1 [facility] Comment on above: Performed By: #### V [id number] #### [facility] [address] [place] [address] Dr. Helio Cee Chloride [Moles/Vol] 108 mmol/L Critically high 98-107 [facility] Comment on above: Performed By: #### V [id number] #### [facility] [address] [address] [address] Helio Cee CO2 [Moles/Vol] 28.4 mmol/L Normal 21.0-32.0 [facility] Comment on above: Performed By: #### V [id number] #### [facility] [address] [address] [address] Helio Cee Creatinine [Mass/Vol] 1.09 mg/dL Critically high 0.55-1.02 [facility] Comment on above: Performed By: #### V [id number] #### [facility] [address] [place] [address] Dr. Helio Cee EGFR-AF SAO TOMEAN 59 mL/min/1.73m2 Critically low >=60 [facility] Comment on above: Performed By: #### V [id number] #### [facility] [address] [place] [address] Dr. Helio Cee EGFR-NON AF SAO TOMEAN 49 mL/min/1.73m2 Critically low >=60 [facility] Comment on above: Performed By: #### V [id number] #### [facility] [address] [place] [address] Dr. Helio Cee Globulin (S) [Mass/Vol] 3.4 g/dL Normal [facility] Comment on above: Performed By: #### V [id number] #### [facility] [address] [place] [address] Dr. Helio Cee Glucose [Mass/Vol] 100 mg/dL Normal 74-106 [facility] Comment on above: Performed By: #### V [id number] #### [facility] [address] [address] [address] Helio Cee Potassium [Moles/Vol] 4.4 mmol/L Normal 3.5-5.1 [facility] Comment on above: Performed By: #### V [id number] #### [facility] [address] [place] [address] Dr. Helio Cee Protein [Mass/Vol] 7.2 g/dL Normal 6.4-8.2 [facility] Comment on above: Performed By: #### V [id number] #### [facility] [address] [place] [address] Dr. Helio Cee Sodium [Moles/Vol] 143 mmol/L Normal 136-145 [facility] Comment on above: Performed By: #### V [id number] #### [facility] [address] [place] [address] Dr. Helio Cee Urea nitrogen [Mass/Vol] 24.0 mg/dL Critically high 7.0-18.0 [facility] Comment on above: Performed By: #### V [id number] #### [facility] [address] [place] [address] Dr. Helio Cee Urea nitrogen/Creatinine [Mass ratio] 22.0 mg/mg Normal [facility] Comment on above: Performed By: #### V [id number] #### [facility] [address] [place] [address] Dr. Helio Cee TSHon 10-25-2021 TSH 0.635 uIU/mL Normal 0.358-3.740 [facility] Comment on above: Performed By: #### V [id number] #### [facility] [address] [place] [address] Dr. Helio Cee Vital Signs Date Time Vital Sign Value Performing Clinician Facility 08-28-2023 14:59-0400 Blood Pressure Location BRENDA MARIN [facility] 08-28-2023 14:59-0400 Body temperature 98.24 [degF] BRENDA MARIN [facility] 08-28-2023 14:59-0400 Diastolic blood pressure 80 mm[Hg] BRENDA MARIN [facility] 08-28-2023 14:59-0400 Heart rate 92 /min BRENDA MARIN [facility] 08-28-2023 14:59-0400 Respiratory rate 16 /min BRENDA MIAH [facility] 08-28-2023 14:59-0400 Systolic blood pressure 132 mm[Hg] BRENDA MIAH [facility] 06-05-2023 12:55-0500 Blood Pressure Location BRENDA MIAH [facility] 06-05-2023 12:55-0500 Diastolic blood pressure 88 mm[Hg] BRENDA MIAH [facility] 06-05-2023 12:55-0500 Heart rate 74 /min BRENDA MIAH [facility] 06-05-2023 12:55-0500 Respiratory rate 16 /min BRENDA MIAH [facility] 06-05-2023 12:55-0500 Systolic blood pressure 134 mm[Hg] BRENDA MIAH [facility] 04-30-2023 15:30-0500 Body height 161.29 cm Jeremiah Reed Other [employer] Other 04-30-2023 15:30-0500 Body mass index (BMI) [Ratio] 35.29 kg/m2 Jeremiah Reed Other [employer] Other 04-30-2023 15:30-0500 Body weight 91.81 kg Jeremiah Reed Other [employer] Other 04-30-2023 15:30-0500 Diastolic blood pressure 74 mm[Hg] Jeremiah Reed Other [employer] [facility] [employer] Other 04-30-2023 15:30-0500 Systolic blood pressure 109 mm[Hg] Jeremiah Derek Other [employer] Other 04-13-2023 14:40-0500 [employer] [facility] 04-13-2023 14:40-0500 [facility] 04-13-2023 13:00-0500 Diastolic blood pressure 77 mm[Hg] [facility] 04-13-2023 13:00-0500 Heart rate 78 /min [facility] 04-13-2023 13:00-0500 [employer] [facility] 04-13-2023 13:00-0500 [facility] 04-13-2023 13:00-0500 Respiratory rate 16 /min [facility] 04-13-2023 13:00-0500 Systolic blood pressure 127 mm[facility]Hg] [facility] 04-13-2023 12:13-0500 Heart rate 80 /min [facility] 04-13-2023 12:13-0500 SaO2% (BldA) [Mass fraction] 95 % [facility] 04-13-2023 12:12-0500 Body temperature 97.16 [degF] [facility] 04-13-2023 12:11-0500 Diastolic blood pressure 78 mm[Hg] [facility] 04-13-2023 12:11-0500 Mean blood pressure 94 mm[Hg] [facility] 04-13-2023 12:11-0500 Systolic blood pressure 125 mm[Hg] [facility] 04-13-2023 12:00-0500 [facility] 04-13-2023 12:00-0500 [facility] 04-13-2023 09:10-0500 Diastolic blood pressure 70 mm[Hg] [facility] 04-13-2023 09:10-0500 Heart rate 87 /min [facility] 04-13-2023 09:10-0500 Mean blood pressure 90 mm[Hg] [facility] 04-13-2023 09:10-0500 Respiratory rate 17 /min [facility] 04-13-2023 09:10-0500 Systolic blood pressure 130 mm[Hg] [facility] 04-13-2023 08:00-0500 SaO2% (BldA) [Mass fraction] 93 % [facility] 04-13-2023 07:29-0500 Heart rate 89 /min [facility] 04-13-2023 07:29-0500 SaO2% (BldA) [Mass fraction] 94 % [facility] 04-13-2023 07:29-0500 Mean blood pressure 88 mm[Hg] [facility] 04-13-2023 07:29-0500 Body temperature 97.88 [degF] [facility] 04-13-2023 05:00-0500 Blood Pressure Location [facility] 04-13-2023 05:00-0500 Heart rate 95 /min [facility] 04-13-2023 05:00-0500 Mean blood pressure 100 mm[Hg] [facility] 04-13-2023 00:18-0500 Blood Pressure Location [facility] 04-13-2023 00:18-0500 Body temperature 97.52 [degF] [facility] 04-12-2023 20:33-0500 Body temperature 97.34 [degF] [facility] 04-12-2023 20:33-0500 Mean blood pressure 88 mm[Hg] [facility] 04-12-2023 18:03-0500 Blood Pressure Location [facility] 04-12-2023 16:49-0500 Respiratory rate 22 /min [facility] 04-12-2023 15:00-0500 Respiratory rate 20 /min [facility] 04-12-2023 12:24-0500 gluc 88 mg/dL [facility] 04-12-2023 12:24-0500 gluc [facility] 04-12-2023 12:19-0500 Body temperature 97.7 [degF] [facility] 03-29-2023 15:30-0500 Body height 161.29 cm Jeremiah Reed Other [employer] [facility] [employer] Other 03-29-2023 15:30-0500 Body mass index (BMI) [Ratio] 37.14 kg/m2 Jeremiah Reed Other [employer] Other 03-29-2023 15:30-0500 Body weight 96.62 kg Jeremiah Reed Other [employer] Other 03-29-2023 15:30-0500 Diastolic blood pressure 85 mm[Hg] Jeremiah Reed Other [employer] Other 03-29-2023 15:30-0500 Systolic blood pressure 144 mm[Hg] Jeremiah Reed Other [employer] Other 06-21-2022 14:42-0500 Blood Pressure Location BRENDA MARIN [facility] Encounters Encounter Date Encounter Type Care Provider Facility Start: 09-26-2023 ambulatory BRENDAPRATIMA MARIN Facili ty:[facility] [place] Start: 08-30-2023 End: 08-30-2023 ambulatory DIDIER A JOEL Not Available Start: 08-28-2023 End: 08-29-2023 ambulatory BRENDA MARIN Facility:[facility] Start: 08-28-2023 End: 08-28-2023 Patient encounter procedure BRENDA Poole MIAH [facility] Start: 07-23-2023 End: 07-24-2023 ambulatory Cayden ROBB Facility:[facility] Start: 07-23-2023 End: 07-23-2023 Patient encounter procedure Cayden ROBB [facility] Start: 07-09-2023 End: 07-10-2023 ambulatory BRENDAROSA ELENA MARIN Facility:[facility] Start: 06-20-2023 End: 06-20-2023 ambulatory Jeremiah Reed Other [employer] Other Start: 06-20-2023 Telephone encounter Jeremiah Reed [facility] Start: 06-05-2023 End: 06-06-2023 ambulatory BRENDA Zulema MIAH Facility:[facility] Start: 06-05-2023 End: 06-06-2023 ambulatory BRENDA Zulema MIAH Facility:[facility] Start: 06-05-2023 End: 06-05-2023 Lab Drop off BRENDA Poole MIAH [facility] Start: 06-05-2023 End: 06-05-2023 Patient encounter procedure BRENDA Poole MIAH [facility] Start: 04-30-2023 End: 04-30-2023 ambulatory Jeremiah Reed Other [employer] Other Start: 04-30-2023 Office outpatient vi sit 25 minutes Jeremiah Reed [facility] Start: 04-30-2023 Telephone encounter Jeremiah Reed [facility] Start: 04-17-2023 End: 04-17-2023 ambulatory Jeremiah Reed Other [employer] Other Start: 04-17-2023 Telephone encounter Jeremiah Reed [facility] Start: 04-13-2023 End: 04-13-2023 ambulatory Ray Fofana Other [employer] Other Start: 04-13-2023 Telephone encounter Ray Fofana [facility] Start: 04-12-2023 End: 04-13-2023 ambulatory Jacintod Tessie Facility:[facility] Start: 04-12-2023 End: 04-13-2023 [facility] Start: 04-09-2023 End: 04-10-2023 ambulatory Drake Delatorre MD Facility:[facility] Start: 03-30-2023 End: 03-30-2023 ambulatory Jeremiah Reed Other [employer] Other Start: 03-30-2023 Telephone encounter Jeremiah Reed [facility] Start: 03-29-2023 End: 03-29-2023 ambulatory Jeremiah Reed Other [employer] Other Start: 03-29-2023 Transitional care manage srvc 14 day discharge Jeremiha Reed [facility] Start: 03-05-2023 End: 03-06-2023 ambulatory Drake Delatorre MD Facility:[facility] Start: 02-05-2023 End: 02-06-2023 ambulatory Drake Delatorre MD Facility:[facility] [place] Start: 01-08-2023 End: 01-09-2023 ambulatory Drake Delatorre MD Facility:[facility] [place] Start: 12-25-2022 End: 12-26-2022 ambulatory Drake Delatorre MD Facility:[facility] Start: 09-01-2022 End: 09-02-[address] JEREMIAH REED Facility:[facility] Start: 08-29-2022 End: 08-30-2022 ambulatory BARBARA WAGNERMIPATHY . Facility:[facility] Start: 08-21-2022 End: 08-22-[address] EHSAN MILLER Facility:[facility] Start: 08-10-2022 End: 08-11-2022 ambulatory BRENT MALDONADO Facility:[facility] Start: 06-21-2022 End: 06-21-2022 Patient encounter procedure BRENDA MARIN [facility] Start: 06-12-2022 End: 06-13-[address] [...] Start: 01-07-2022 End: 01-08-[address] PEYTON MORENO Facility:[facility] Start: 01-05-2022 End: 01-06-[address] FELISHA RAMOS . Facility:[facility] Start: 12-13-2021 End: 12-13-[address] FELISHA RAMOS . Facility:[facility] Start: 12-07-2021 End: 12-08-[address] FELISHA RAMOS . Facility:[facility] Start: 11-24-[address] JEREMIAH Rutledge ity:[facility] Start: 11-22-2021 End: 11-22-[address] SHIREEN ORTEGA Facility:[facility] Start: 11-18-2021 End: 11-21-2021 Evaluation and management of inpatient DR HARSHAL MENDIETA Facility:[facility] Start: 10-25-2021 End: 10-26-[address] EHSAN MILLER Facility:[facility] Start: 10-24-2018 End: 10-24-2018 Patient encounter procedure Radha Kosta Clinker Work Phone: [facility] Start: 08-21-2018 End: 08-21-2018 Patient encounter procedure Radha L Clinker Work Phone: [facility] Start: 06-28-2018 End: 06-28-2018 Patient encounter procedure Radha L Clinker Work Phone: [facility] Procedures Date Procedure Procedure Detail Performing Clinician Start: 07-23-2023 Cystourethroscopy wi th dilation of urethral stricture BRENDA MARIN Start: 06-16-2016 Cystourethroscopy wi th dilation of urethral stricture BRENDA MARIN Appendectomy BRENDA MARIN Biopsy of breast BRENDA ACOSTA RRNathan Hysterectomy BRENDA MARIN Plan of Treatment Date Care Activity Detail Author Start: 10-26-2022 ambulatory Ambulatory Facility:[facility] Start: 01-12-2019 Influenza vaccination INFLUENZ A VACCINE (Season Ended) [facility] Start: 01-12-2018 Influenza vaccination INFLUENZA VACC INE (#1) [facility] Start: 02-10-2012 Pneumococcal vaccination PNEUM OCOCCAL VACCINE SERIES (1 of 2 - PCV13) [facility] Start: 1997 Protein mass conc COLON CANCER SCREENING DISCUSSION [facility] Start: 1997 Zoster vaccine hzv l derrell for subcutaneous use ZOSTER (SHINGLES) VACCINE (1 of 2) [facility] Start: 1987 Fasting lipid profile LIPID SCREENIN G [facility] Start: 1987 Protein mass conc MAMMOGRAM SC REENING DISCUSSION [facility] Start: 02-10-1968 Screening for malign ant neoplasm of cervix PAP SMEAR DISCUSSION [facility] Start: 1966 Third diphtheria, te tanus and acellular pertussis (DTaP) vaccination TDAP (ADULT) [facility] Start: 1965 Tetanus vaccination TETANUS [facility] Start: 1947 Hepatitis C antibody , confirmatory test HEPATITIS C VIRUS SCREENING [facility] Start: 1947 Screening for osteoporosis DEXA SCAN DISCUSSION [facility] Immunizations Immunization Date Immunization Notes Care Provider Fa [facility] 03-31-2021 SARS-CoV-2 (COVID-19 ) mRNA BNT-162b2 vax BRENDA MARIN [facility] 07-21-2020 SARS-CoV-2 (COVID-19 ) Ad26 vaccine, recombinant BRENDA MARIN [facility] 04-11-2020 influenza virus vaccine, unspecified formulation BRENDA MARIN [facility] 02-02-2011 influenza virus vaccine, unspecified formulation BRENDA MIAH [facility] Payers Date Payer Category Payer Medicare 2022 Unknown 1959 Medicare [id number] 1957 Unknown [id number] 1947 Unknown [id number] 2.16.84 0.1.745070.3.579.2.593 1947 Unknown [id number] 2.16.84 0.1.392708.3.579.2.593 1947 Unknown [id number] 2.16.84 0.1.573483.3.579.2.593 1947 Unknown [id number] 2.16.84 0.1.437870.3.579.2.593 1947 Unknown [id number] 2.16.84 0.1.982593.3.579.2.593 1947 Unknown [id number] 2.16.84 0.1.448507.3.579.2.593 1947 Unknown [id number] 2.16.84 0.1.146725.3.579.2.593 1947 Unknown [id number] 2.16.84 0.1.489639.3.579.2.593 1947 Unknown [id number] 2.16.84 0.1.835958.3.579.2.593 1947 Unknown [id number] 2.16.84 0.1.480703.3.579.2.593 1947 Unknown [id number] 2.16.84 0.1.838653.3.579.2.593 1947 Unknown [id number] 2.16.84 0.1.047177.3.579.2.593 1947 Unknown [id number] 2.16.84 0.1.718907.3.579.2.593 1947 Unknown [id number] 2.16.84 0.1.528084.3.579.2.593 1947 Unknown [id number] 2.16.84 0.1.776125.3.579.2.593 1947 Unknown [id number] 2.16.84 0.1.728525.3.579.2.593 1947 Unknown [id number] 2.16.84 0.1.180447.3.579.2.593 1947 Unknown [id number] 2.16.84 0.1.388635.3.579.2.593 1947 Unknown [id number] 2.16.84 0.1.667630.3.579.2.593 1947 Unknown [id number] 2.16.84 0.1.325027.3.579.2.593 1947 Unknown [id number] 2.16.84 0.1.549720.3.579.2.593 1947 Unknown [id number] 2.16. 840.1.152943.3.579.2.196 1947 Unknown [id number] 2.16. 840.1.842499.3.579.2.196 1947 Unknown [id number] 2.16. 840.1.228853.3.579.2.196 1947 Unknown [id number] 2.16. 840.1.826729.3.579.2.196 1947 Unknown [id number] 2.16. 840.1.984750.3.579.2.196 1947 Unknown [id number] 2.16.84 0.1.978368.3.579.2.1259 1947 Unknown [id number] 2.16.8 40.1.322513.3.579.2.727 1947 Unknown [id number] 2.16.8 40.1.466191.3.579.2.727 1947 Unknown [id number] 2.16.8 40.1.218655.3.579.2.727 1947 Unknown [id number] 2.16.8 40.1.976253.3.579.2.727 1947 Unknown [id number] 2.16.8 40.1.671413.3.579.2.727 1947 Unknown [id number] 2.16.8 40.1.065652.3.579.2.727 1947 Unknown [id number] 2.16.8 40.1.416686.3.579.2.727 1947 Unknown [id number] 2.16.8 40.1.699358.3.579.2.727 Social History Date Type Detail Facility [facility] Sex Assigned At Not on file [facility] Start: 02-03-2021 End: 08-28-2023 Tobacco smoking status Ex-smoker (finding) [facility] Sex Assigned At Female [facility] Tobacco smoking status Never [facility] Functional Status Date Assessment Result Facility 08-28-2023 Functional Status N/A [facility] 06-05-2023 Functional Status N/A [facility] 04-12-2023 Functional Status N/A [facility] 04-12-2023 Functional Status [facility] 06-21-2022 Functional Status N/A [facility] Clinical Notes 01-12-2013 to 08-28-2023 Note Date & Type Note Facility 08-28-2023 Hospital Discharg e instructions Patient Education 08/28/2023 15:36:27 Overactive Bladder, Adult Overactive Bladder, Adult Overactive bladder is a condition in which a person has a sudden and frequent need to urinate. A person might also leak urine if he or she cannot get to the bathroom fast enough (urinary incontinence). Sometimes, symptoms can interfere with work or social activities. What are the causes? Overactive bladder is associated with poor nerve signals between your bladder and your brain. Your bladder may get the signal to empty before it is full. You may also have very sensitive muscles that make your bladder squeeze too soon. This condition may also be caused by other factors, such as: Medical conditions: ?Urinary tract infection. ?Infection of nearby tissues. ?Prostate enlargement. ?Bladder stones, inflammation, or tumors. ?Diabetes. ?Muscle or nerve weakness, especially from these conditions: ?A spinal cord injury. ?Stroke. ?Multiple sclerosis. ?Parkinson's disease. Other causes: ?Surgery on the uterus or urethra. ?Drinking too much caffeine or alcohol. ?Certain medicines, especially those that eliminate extra fluid in the body (diuretics). ?Constipation. What increases the risk? You may be at greater risk for overactive bladder if you: Are an older adult. Smoke. Are going through menopause. Have prostate problems. Have a neurological disease, such as stroke, dementia, Parkinson's disease, or multiple sclerosis (MS). Eat or drink alcohol, spicy food, caffeine, and other things that irritate the bladder. Are overweight or obese. What are the signs or symptoms? Symptoms of this condition include a sudden, strong urge to urinate. Other symptoms include: Leaking urine. Urinating 8 or more times a day. Waking up to urinate 2 or more times overnight. How is this diagnosed? This condition may be diagnosed based on: Your symptoms and medical history. A physical exam. Blood or urine tests to check for possible causes, such as infection. You may also need to see a health care provider who specializes in urinary tract problems. This is called a urologist. How is this treated? Treatment for overactive bladder depends on the cause of your condition and whether it is mild or severe. Treatment may include: Bladder training, such as: ?Learning to control the urge to urinate by following a schedule to urinate at regular intervals. ?Doing Kegel exercises to strengthen the pelvic floor muscles that support your bladder. Special devices, such as: ?Biofeedback. This uses sensors to help you become aware of your body's signals. ?Electrical stimulation. This uses electrodes placed inside the body (implanted) or outside the body. These electrodes send gentle pulses of electricity to strengthen the nerves or muscles that control the bladder. ?Women may use a plastic device, called a pessary, that fits into the vagina and supports the bladder. Medicines, such as: ?Antibiotics to treat bladder infection. ?Antispasmodics to stop the bladder from releasing urine at the wrong time. ?Tricyclic antidepressants to relax bladder muscles. ?Injections of botulinum toxin type A directly into the bladder tissue to relax bladder muscles. Surgery, such as: ?A device may be implanted to help manage the nerve signals that control urination. ?An electrode may be implanted to stimulate electrical signals in the bladder. ?A procedure may be done to change the shape of the bladder. This is done only in very severe cases. Follow these instructions at home: Eating and drinking Make diet or lifestyle changes recommended by your health care provider. These may include: ?Drinking fluids throughout the day and not only with meals. ?Cutting down on caffeine or alcohol. ?Eating a healthy and balanced diet to prevent constipation. This may include: ?Choosing foods that are high in fiber, such as beans, whole grains, and fresh fruits and vegetables. ?Limiting foods that are high in fat and processed sugars, such as fried and sweet foods. Lifestyle Lose weight if needed. Do not use any products that contain nicotine or tobacco. These include cigarettes, chewing tobacco, and vaping devices, such as e-cigarettes. If you need help quitting, ask your health care provider. General instructions Take cyia-dgr-upylauo and prescription medicines only as told by your health care provider. If you were prescribed an antibiotic medicine, take it as told by your health care provider. Do not stop taking the antibiotic even if you start to feel better. Use any implants or pessary as told by your health care provider. If needed, wear pads to absorb urine leakage. Keep a log to track how much and when you drink, and when you need to urinate. This will help your health care provider monitor your condition. Keep all follow-up visits. This is important. Contact a health care provider if: You have a fever or chills. Your symptoms do not get better with treatment. Your pain and discomfort get worse. You have more frequent urges to urinate. Get help right away if: You are not able to control your bladder. Summary Overactive bladder refers to a condition in which a person has a sudden and frequent need to urinate. Several conditions may lead to an overactive bladder. Treatment for overactive bladder depends on the cause and severity of your condition. Making lifestyle changes, doing Kegel exercises, keeping a log, and taking medicines can help with this condition. This information is not intended to replace advice given to you by your health care provider. Make sure you discuss any questions you have with your health care provider. Document Revised: 01/17/2021 Document Reviewed: 01/17/2021 [employer] Patient Education 2022 [employer]. Follow Up Care 07/23/2023 14:35:57 With:BRENDA MARIN PA-C, URL Address: [address] [place] [address] Business (1) When:6 weeks [facility] 07-23-2023 Note [id number] [facility] 07-23-2023 Note Cystoscopy with Uret hral Dilation ? Voiding after the procedure: there may be some pain, urethral bleeding, burning, urgency, frequency and blood tinged urine following the procedure. These symptoms usually resolve within 2-5 days. Drink the amount of fluid it takes to keep the urine pink to yellow or clear in color. Drinking enough water and fluids will help to ease any discomfort after your procedure. ? If you are having problems that seem out of the ordinary, please call. ? If unable to contact your physician and you feel it is an emergency, go to the nearest emergency room or call 911 ? Diet ? you may resume your normal diet. ? Activity ? you may resume your normal activities ? Call if you have a fever over 100 degrees [facility] 07-23-2023 Hospital Discharg e instructions Patient Education 07/23/2023 14:28:44 [facility] - Cystoscopy with Urethral Dilation Discharge Instructions (Custom) Cystoscopy with Urethral Dilation Voiding after the procedure: there may be some pain, urethral bleeding, burning, urgency, frequency and blood tinged urine following the procedure. These symptoms usually resolve within 2-5 days. Drink the amount of fluid it takes to keep the urine pink to yellow or clear in color. Drinking enough water and fluids will help to ease any discomfort after your procedure. If you are having problems that seem out of the ordinary, please call. If unable to contact your physician and you feel it is an emergency, go to the nearest emergency room or call 911 Diet you may resume your normal diet. Activity you may resume your normal activities Call if you have a fever over 100 degrees Follow Up Care 06/11/2023 13:39:28 With:BRENDA MARIN Address: [address] [facility] [place] [address] [facility] (1) When: Unknown Comments:Call for followup appointment with Georgette Marin PA-c within the next 2 months or so to monitor you. Please finish your antibiotics and have a great day. [facility] 06-20-2023 Evaluation note Encounter Date Diagnosis Assessment Notes Jun, Essential (primary) hypertension (ICD-10 - I10) [facility] Other 01-23-2024 Hospital Discharge instructions Patient Education 06/05/2023 13:34:18 Urethral Stricture [...] camera on the end (urethroscope) is used tolook at the urethra. How is this treated? [...] reconstructed. Follow these instructions at home: Take dffk-cas-xlcxbwc and prescription medicines only as told by [...] provider. Document Revised: 03/07/2022 Document Reviewed: 03/07/2022 Else[employer] Patient Education 2022 [employer]. Follow Up Care 06/21/2022 15:14:52 With:CEZAR BERNAL, Cayden Hollins, URL Address: [address] [place] [address] [place], [place] [id number]- When: Unknown [facility] 01-23-2024 Evaluation + Plan note Diagnostic Tests Pending * Urine Culture 06/05/23 [facility]12-18-2023 Evaluation note* Encounter Date Diagnosis Assessment Notes Treatment Notes Treatment Clinical Notes Apr, Generalized weakness (ICD-10 - R53.1) [...] symptoms. Any developing patterns. Stay well hydrated. [employer] Other [id number] NoteChief Complaint pt arrives via [facility] after being found outside by a neighbor without a shirt on. pt is a/o to self and place, not time. FSBS upon arrival 88. Pt was recently treated for UTI @[facility]. pt. denies fall, was found sitting down. History of Present Illness 78-year-old female with PMH reformed smoker, HTN, anxiety, depression, peripheral neuropathy, GERD, OAB, obesity. -Patient presented to the ED secondary to confusion. -Per ED physician patient was recently in [facility] and treated for a UTI on [...] Lymph Auto: 9.7 % Low (04/12/23 12:53:00) [place] Auto: 7.8 % (04/12/23 12:53:00) Eos Auto: 0.1 % (04/12/23 12:53:00) Basophil Auto: 0.4 % (04/12/23 12:53:00) Neutro Absolute: 12.4 E9/L High (04/12/23 12:53:00) Lymph Absolute: 1.5 E9/L (04/12/23 12:53:00) [place] Absolute: 1.2 E9/L High (04/12/23 12:53:00) Eos [...] 88 mg/dL (04/12/23 12:23:00) POC Device SN: [id number] (04/12/23 12:23:00) POC User ID: (more content not included)...[facility]Result Comment: Electronically Signed By: TITI MITCHELL, Radha\.br\Date and Time Signed: 04/12/23 16:29 EST\.br\Electronically Co-Signed By: TITI MITCHELL Radha\.br\Date and Time Co-Signed: 04/12/23 16:37 EST\.br\Electronically Co-Signed By: Radha TAYLOR\.br\Date and Time Co-Signed: 04/12/23 16:58 EST\.br\Electronically Co-Signed By: Tessie BERNAL, Efrain\.br\Date and Time Co-Signed: 04/13/23 16:43 [id number] NoteAdmission and Discharge Information Admitting Physician - Tessie BERNAL, Efrain [...] willbe reviewed and discussed with PCP or ammonia still operator MD once the hospital electric furnace operator is able to reach him/her. I [...] made to ensure accuracy, however, inadvertently computerized garage supervisor mistakes may be present. Significant Findings CT [...] spine, with routine reconst (more content not included)...[facility]:Result Comment: Electronically Signed By: Radha TAYLOR\.br\Date and Time Signed: 04/13/23 10:54 EST\.br\Electronically Co-Signed By: Radha TAYLOR\.br\Date and Time Co-Signed: 04/13/23 10:57 EST\.br\Electronically Co-Signed By: Radha TAYLOR\.br\Date and Time Co-Signed: 04/13/23 10:58 EST\.br\Electronically Co-Signed By: Radha TAYLOR\.br\Date and Time Co-Signed: 04/13/23 10:59 EST\.br\Electronically Co- Signed By: Radha TAYLOR\.br\Date and Time Co-Signed: 04/13/23 13:55 EST\.br\Electronically Co-Signed By: Efrain Kurtz MD\.br\Date and Time Co- Signed: 04/13/23 16:37 [id number] Evaluation + Plan noteExtracted from: Title:Discharge Note Author:TITI SAUER-SKYLA, Lauren phillips Date:04/13/23 Hemodynamically stable resul ts Discharged to [...] cap(s), Oral, Daily With When Contact Information [facility] Additional Instructions: Call for followup appointment for anxiety/depression care. Gerald Nolasco Within [address] to [address], [place] [address]- Business (1) Additional Instructions: JEREMIAH REED Within 2 to [address] [place] [address]- Business (1) Additional Instructions: Confusion Extracted from: Title:Consult Note-neurology Author:Megha Jolly RN Date:04/13/23 ASSESSMENT: 1. Acute confusional state. May [...] deep vein thrombosis (DVT) prophylaxis (Z79.899: Other detention (current) drug therapy) Depression, unspecified (F32.A: Depression, [...] vein thrombosis (DVT) prophylaxis (Z79.899: Other terminal block assembler (current) drug therapy) Depression, unspecified (F32.A: Depression, [...] Cr - unknown - awaiting records from [facility] -Renal US & PVR - if [...] vein thrombosis (DVT) prophylaxis (Z79.899: Other terminal block assembler (current) drug therapy) -Heparin sq with early [...] made to ensure accuracy, however, inadvertently computerized garage supervisor mistakes may be present. Future Appointments Appointment Date:06/05/2023 01:00:00 PM Scheduled Provider:BRENDA MARIN PA-C Location[place] [place] Appointment Type:URO Office Visit [facility]12-01-2023 NoteChief Complaint AMS Reason for Consultation [...] is alert and is oriented to [employer] and April and said 1921 but corrected [...] vein thrombosis (DVT) prophylaxis (Z79.899: Other terminal block assembler (current) drug therapy) Depression, unspecified (F32.A: Depression, [...] 2 tab(s), Oral, q6hr, PRN Afrin 0.05% [place], 2 s (more content not included)...[facility] Comment on above:Result Comment: Electronically Signed [...] friend for help if needed. Medicines Take dwgr-abl-ysyvwes and prescription medicines only as told by [...] consider day care, extended-care programs, or a nursing home facility. The person's health care provider may [...] provider. Document Revised: 08/24/2020 Document Reviewed: 08/24/2020 [employer] Patient Education 2022 [employer]. Follow Up Care 04/12/2023 12:15:50 With:Ehsan Blair MD, NEU Address: [address] [address]- When:1 to 2 weeks Comments:This office is closed on Fridays. Please call the office on Sunday April 16, 2023 for a follow upappiontment. Thank you. With:JEREMIAH REED Address: [address] [place] [phone]- Business (1) When:2 to 4 days Comments:Call for followup appointment With:[facility] Address:Unknown When: Unknown Comments:Call for followup appointment for anxiety/depression care. [facility]12-01-2023 NotePT Evaluation done this date. Pt. with on AM-PAC this date. Recommend she use FWW for gait aswith cane she reaches for objects to hang onto with other hand. Will likely benefit from home health PT.[facility]11-17-2023 Evaluation note* Encounter Date Diagnosis Assessment Notes Treatment Notes Treatment Clinical Notes Mar, Colon cancer screening (ICD-10 - Z12.11) [employer] Other 11-16-2023 Evaluation note* Encounter Date Diagnosis Assessment Notes Treatment Notes Treatment Clinical Notes Mar, Generalized weakness (ICD-10 - R53.1) Followup as scheduled w ortho and PT Mar, COPD, moderate (ICD-10 - J44.9) continue present medication reviewed ER report from observation status [employer] [facility] [employer] Other 03-30-2023 NoteCONSULTATION CONSULTATION DATE: 08/10/2022 TO: [...] weeks' time or sooner if needed. [id number] NoteCONSULTATION PROCEDURE DATE: 08/10/2022 PROCEDURE: Right suprascapular [...] reduction in her pain symptoms post procedurally.[id number] Hospital Discharge instructions Patient Education 06/21/2022 14:35:24 [...] fried and sweet foods. General instructions Take vfxv-zvk-gytkjfj and prescription medicines only as told by [...] 02/24/2010 Document Revised: 08/21/2019 Document Reviewed: 05/16/2018 [employer] Patient Education 2020 [employer]. Follow Up Care 05/19/2021 14:10:29 With:BRENDA MARIN PA-C, URL Address: [address] [place] [address] When: Unknown [facility] 12-29-2022 NoteCONSULTATION CONSULTATION DATE: 05/11/2022 HISTORY [...] the diclofenac. 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 [...] in three months' time unless otherwise indicated.[facility] [id number] NoteCONSULTATION CONSULTATION DATE: 02/23/2022 This is a [...] in three months' time unless otherwise indicated.[facility] [id number] NoteCONSULTATION CONSULTATION DATE: 01/08/2022 HISTORY OF PRESENT [...] followed up in the office post procedure.[facility] [id number] Note CONSULTATION CONSULTATION DATE: 12/07/2021 HISTORY OF [...] and patient would like to proceed. [facility] [id number] History general Narrative - Reported* Type Description Date Medical History Chronic back pain Medical History HTN Medical History anxiety Medical History DJD Medical History osteoporosis Surgical History Lumbar laminectomy and fusion Surgical History Hysterectomy (spared L ovary) Surgical History Landaverde's neuroma Hospitalization History For surgery as above Hospitalization History [facility] 03/2023 eflow Other Evaluation + Plan note Future Appointments Appointment Date:06/26/2023 02:30:00 PM Scheduled Provider:BRENDA MARIN PA-C Location:[facility] Appointment Type:URO Office Visit [facility] evaluation + Plan note Future Appointments Appointment Date:08/28/2023 03:00:00 PM Scheduled Provider:BRENDA MARIN PA-C Location:[facility]ointment [facility] noteNo [facility]Ge[facility] [employer] Other Hospital course Narrative No data available for this section [facility] Hospital Discharge instructions No data available for this section [facility] No data available for this section [facility] Summary Purpose Family History No Family History Records FoundNo Family History Records Found No data available for this section No data available for this section No data available for this section No data available for this section No data available for this section No Family History Records FoundNo Family History Records Found Advance Directives No Advanced Directives Records FoundNo Advanced Directives Records FoundNo Advanced Directives Records FoundNo Advanced Directives Records Found Additional Source Comments Reason for Visit (unrecogniz ed section and content) Reason Comments Medication Refill Patient Care team informatio n (unrecognized section and content) Personnel Name: JEREMIAH REED MD Address: Address: [address] [place] [address] Personnel Name: JEREMIAH REED MD Address: Address: [address] [place] [address] Personnel Name: JEREMIAH REED MD Address: Address: [address] [place] [address] Personnel Name: JEREMIAH REED MD Address: Address: [address] [place] [address] Personnel Name: JEREMIAH REED MD Address: Address: [address] [place] [address] Personnel Name: JEREMIAH REED MD Address: Address: [address] [place] [address] INFORMATION SOURCE (unrecogn ized section and content) DATE CREATED AUTHOR 09/08/2022 [facility] DATE CREATED AUTHOR AUTHOR'S ORGANIZ ATION 04/13/2023 [facility] DATE CREATED AUTHOR AUTHOR'S ORGANIZ ATION 09/01/2023 [facility] DATE CREATED AUTHOR AUTHOR'S ORGANIZ ATION 09/12/2023 [facility] FOR RECORDS PERTAINING TO PATIENTS WHO ARE [...] BE BASED ON THE PRIMARY CLINICAL RECORDS. [facility] [employer] provides no warranty or guarantee of the accuracy or completeness of information in this document.
[2023-09-17 08:37] VITALS: BP 180/84; BP 180/87; PULSE 85; PULSE 91; O2SAT 92
[2023-09-17] MEDS: LIDOCAINE HCL 2% 400 MG/20 ML MDV INJ (08:39)
--- NOTE | 2023-09-17 08:39 | W.PM.PROCNOT ---
Date of procedure: 09/17/23 Pre-op diagnosis: Lumbar spondylosis Post-op diagnosis: same as pre-op Procedure: Procedure: Bilateral L4-5, L5-S1 medial branch block Medications: Bupivacaine 0.25% 6cc The patient was seen and examined in the preoperative holding area.? An informed consent was obtained and placed on the chart.? The patient was brought to the medical procedure unit and placed in the prone position.? A timeout was completed verifying correct patient, procedure site, positioning, plan, and special equipment.? Using aseptic technique, the needle was placed at left L4. Under direct fluoroscopic visualization a Quincke-tipped spinal needle was advanced to the junction of the superior articulating process with the transverse process at the designated medial branch segment.? Preceded by negative aspiration, the above-mentioned injectate was placed in 1 mL aliquots.? The procedure was repeated at left L5, S1.? The needle was removed and insertion site was covered. The same procedure, at the same levels, was completed on the right side. The patient was taken to the postprocedural recovery area and monitored for an appropriate length of time before found suitable for discharge in the company of a responsible adult. Anesthesia: Local Surgeon: Drake Delatorre Pathology: none sent Condition: stable Disposition: no change
[2023-09-17] MEDS: BUPIVACAINE HCL 0.25% PF 25 MG/10 ML VIAL 8 ML INJ (08:40)
== END 2023-09-17 08:47 | disposition home or self-care (01) ==
PROVIDERS: PCP Family Medicine; Visit Provider Anesthesiology
DX: M47.816 Spondylosis without myelopathy or radiculopathy, lumbar region (principal)
CPT/HCPCS: 64493; 64494

== ENCOUNTER 2023-09-27 13:19 | Outpatient (OUT) | payer MEDICARE, OTHER, SELFPAY ==
--- OUTSIDE RECORDS SUMMARY | 2023-09-27 13:33 | XMS_ITS | CCD ---
Author Organization [facility] Care Team Providers Care Hook Up Driver Name Role Phone Unavailable Primary Care Provider JEREMIAH Arnold Primary Care Physician BRENT MALDONADO Consulting Unavailable LAKSHMIPATHY ., NARTAMIKA Admitting Chelly vailable LAKSHMIPATHY ., BARBARA Attending Chelly vailable DEREK, DR JEREMIAH Poole [...] DR JEREMIAH Poole Consulting Unavailable DEREK, DR EJREMIAH Poole Attending Unavailable DEREK, DR JEREMIAH Poole [...] JEREMIAH Poole Attending Unavailable Jeremiah Reed Unavailable Ray Fofana Unavailable DIDIER MALDONADO Attending Unavailable BRENDA MARIN Admitting Unavailable MIAHBRENDA DAMICO Attending Unavailable Moussawi, Ahmad Admitting Unavailable Moussawi, Ahmad Attending Unavailable CreedeEhsan cortez Consulting Unavailable CreedeMD Ehsan cortez Consulting Unavailable Creede, Ehsan Consulting Unavailable Creede, Ehsan Consulting Unavailable Creede, Ehsan Consulting Unavailable Creede, Ehsan Consulting Unavailable Creede, Ehsan Consulting Unavailable Creede, Ehsan Consulting Unavailable Creede, Ehsan Consulting Unavailable MIAHBRENDA DAMICO Attending Unavailable MIAHBRENDA Attending Unavailable MIAHBRENDA Attending Unavailable MIAHBRENDA DAMICO Referring Unavailable MIAHBRENDA DAMICO Attending Unavailable Cayden ROBB Attending Unavailable Cayden ROBB Referring Unavailable Cayden ROBB Admitting Unavailable MIAHBRENDA DAMICO Admitting Unavailable MIAHBRENDA DAMICO Attending Unavailable Gieditis , Andrius Glaser Attending Unavailable Giedraitis , Andrius Vnella Attending Unavailable Giedraitis , Andrius Vytedwardo Attending Unavailable Gieditis , Andrius Vytedwardo Attending Unavailable Girovertoitis , Andrius Vytedwardo Attending Unavailable Gieditis , Andrius Vnella Attending Unavailable Allergies Allergy Classification Reported Allergen(s) Allergy Type Date of Onset Reaction(s) Facility (7 sources) patient allergy list reviewed by nurse or physicia Propensity to adverse reactions 9 Comment:Done [employer] Other (7 sources) Allergies Reconciled Propensity to adverse reactions Unknown [employer] Other Medications Current Medications Medication Drug Class(es) Dates Sig (Normalized) Sig (Original) acetaminophen 325 mg oral tablet (1 source) Start: 04-13-2023 take 2 tablets by mouth every six hours as needed for pain acetaminophen 325 mg Tab 650 mg = 2 tab(s), Oral, q6hr, PRN Pain, Refills(s) 0 Start Date: 04/13/23 Status: Ordered acetaminophen 325 mg / oxyCODONE hydrochloride 2.5 mg oral tablet (7 sources) Opioid Agonist Start: 02-18-2019 take 1 tablet by mouth every twelve hours as needed for pain acetaminophen-oxyc odone 325 mg-2.5 mg oral tablet 1 tab(s), Oral, q12hr as needed for pain, Refill(s) 0 Start Date: 02/18/19 Status: Ordered amLODIPine 10 mg oral tablet (14 sources) Dihydropyridine Calcium Channel Harlan Start: 04-21-2022 take 1 tablet by mouth once daily amlodipine 10mg amLODIPine 10mg, 1 (one) Tablet daily # 30, 04/21/2022, No Refill. Active oral daily for 30 *Reorder from [employer] for eRx and Interaction Alerts* Apr, Active Start: 02-11-2019 take 2 tablets by mo [facility] once daily amLODIPine 2.5 mg Tab 5 mg = 2 tab(s), Oral, Daily, # 90 tab(s), Refills(s) 0 Start Date: 02/11/19 Status: Ordered take 1 tablet by buffy every twenty-four hours amLODIPine Besylate 5 MG 1 tablet Orally Once a day for 30 days Active Ocuvite (7 sources) Vitamin C Start: 02-03-2021 Ocuvite Oral, Daily, Refill(s) 0 Start Date: 02/03/21 Status: Ordered aspirin 81 mg delayed release oral tablet (9 sources) Platelet Aggregation Inhibitor, Nonsteroidal Anti-inflammatory Drug [...] Entry Oral for 0 *Pick strength-form from [employer] for eRX* 30 Mar, 2022 Active Start: [...] Ordered calcium citrate 950 mg oral tablet (3 sources) Start: 08-28-2023 calcium (as ca lcium [...] afterwards, # 2 tab(s), Refills(s) 0, Pharmacy: [facility]/pharmacy #[id number], 165, cm, 06/05/23 12:57:00 EST, Height/Length Dosing, 87, kg, 06/05/23 12:57:00 EST, Weight Dosing Start Date: 06/11/23 Status: Ordered gabapentin 300 mg oral capsule (14 sources) Anti-epileptic Agent Start: 04-13-2023 take 1 capsule by mouth three times daily gabapentin 300 mg Cap 300 mg = 1 cap(s), Oral, TID, Refills(s) 0 Start Date: 04/13/23 Status: Ordered Start: 02-11-2019 take 1 tablet by buffy three times daily gabapentin 600 mg Tab 600 mg = 1 tab(s), Oral, TID, Refills(s) 0 Start Date: 02/11/19 Status: Ordered glucosamine sulfate 500 mg oral capsule (10 sources) Start: 08-28-2023 take 1 capsule by [...] Handicap Placard (7 sources) Start: 11-25-[address] HandiCap Placard , as directed # 1, 11/25/2019, No Refill. Active as directed for 0 duration 5 years *Reorder from [employer] for eRx and Interaction Alerts* Nov, Active Melatonin (7 sources) Start: 02-03-2021 melatonin Once a day (at bedtime), Refills(s) 0 Start Date: 02/03/21 Status: Ordered meloxicam 15 mg oral tablet (9 sources) Nonsteroidal Anti-inflammatory Drug Start: 09-26-2023 meloxicam 15 mg T ab Refills(s) 0 Start Date: 09/26/23 Status: Ordered Start: 04-12-2022 take 15 mg by mouth [...] day(s), # 30 tab(s), Refills(s) 11, Pharmacy: [facility]/pharmacy #[id number], 165, cm, 08/28/23 15:03:00 EDT, Height/Length Dosing, 90, kg, 08/28/23 15:03:00 EDT, Weight Dosing Start Date: 08/28/23 Stop Date: 08/22/24 Status: Ordered nortriptyline 25 mg oral capsule (14 sources) Tricyclic Antidepressant Start: 02-11-2019 take 1 capsule by mouth at bedtime nortriptyline 25 mg Cap 25 mg = 1 cap(s), Oral, Bedtime, Refills(s) 0 Start Date: 02/11/19 Status: Ordered omeprazole 40 mg delayed release oral capsule (14 sources) Proton Pump Inhibitor Start: 02-11-2019 take [...] day(s), # 30 tab(s), Refills(s) 11, Pharmacy: [id number], 165, cm, 06/21/22 14:53:00 EST, Height/Length Dosing, 87, kg, 06/21/22 14:53:00 EST, Weight Dosing Start Date: 06/21/22 Stop Date: 06/16/23 Status: Ordered Tudorza Pressair 400mcg/actuat (7 sources) Start: 04-12-2022 take 1 puff(s) by inhalation twice daily Tudorza Pressair 400mcg/actuat Tudorza Pressair 400mcg/actuat, 1 (one) Puff BID # 1, 04/12/2022, Ref. x12. Active inhalation BID *Pick strength-form from [employer] for eRX* Mar, Active Start: 04-12-2022 take 1 puff(s) by in halation twice daily Tudorza Pressair 400mcg/actuat Tudorza Pressair 400mcg/actuat, 1 (one) Puff BID # 1, 04/12/2022, Ref. x12. Active inhalation BID for 30 *Pick strength-form from [employer] for eRX* 30 Mar, 2022 Active vibegron 75 MG Oral Tablet [Gemtesa] (1 source) Start: 08-28-2023 End: 08-22-2024 take 1 tablet by mouth once daily Gemtesa 75 mg oral tablet 75 mg = 1 tab(s), Oral, Daily, X 30 day(s), # 30 tab(s), Refills(s) 11, Pharmacy: [facility]/pharmacy #[id number], 165, cm, 08/28/23 15:03:00 EDT, Height/Length Dosing, 90, kg, 08/28/23 15:03:00 EDT, Weight Dosing Start Date: 08/28/23 Stop Date: 08/22/24 Status: Ordered Vision Formula (7 sources) Vision Formula A ctive Problems Active Problems Problem Classification Problem Date Documented Date Episodic/Chronic Abdominal hernia (1 source) Diaphragmatic hernia without obstruction or gangrene; Translations: [DIAPH HERNIA W/O OBST/GANGRENE] Onset: 3 Episodic Abdominal pain (7 sources) Abdominal tenderness 02-03-2021 Episodic Anxiety disorders [...] current use of drug therapy; Translations: [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] Onset: 3 Episodic Other connective tissue disease (1 source) Other muscle spasm; Translations: [OTHER MUSCLE SPASM] Onset: 3 Episodic Other diseases of bladder and urethra (5 sources) Detrusor overactivity; Translations: [Overactive bladder] Onset: 3 Chronic Other diseases of bladder and urethra (7 sources) Overactive bladder 03-31-2021 Chronic Other diseases of bladder and urethra (4 sources) Male urethral stricture; Translations: [Unspecified urethral stricture, male, unspecified site] Onset: 3 Episodic Other diseases of bladder and urethra (7 sources) Traumatic urethral stricture 02-03-2021 Episodic Other diseases of bladder and urethra (7 sources) Urethral stricture 02-11-2019 Episodic Other diseases [...] Spondylosis; intervertebral disc disorders; other back problems (14 sources) Backache; Translations: [Cervicalgia] Onset: 2 02-11-2019 Episodic Sprains and strains (8 sources) Strain of muscle(s) and tendon(s) of the rotator cuff of right shoulder, subsequent encounter; Translations: [Strain of muscle(s) and tendon(s) of the rotator cuff of right shoulder, initial encounter] Onset: 3 Episodic Substance-related disorders (7 sources) Cigarette smoker 10-21-2019 Chronic Thyroid disorders [...] EXPOS COVID-19] Onset: 2 Urinary tract infections (7 sources) Chronic cystitis 10-21-2019 Chronic Urinary tract infections (15 sources) Acute urinary tract infection; Translations: [Urinary [...] 02-25-2022 Episodic Other aftercare (1 source) Other correction (current) drug therapy; Translations: [OTH SNF CURRENT DRUG THERAPY] Onset: 01-09-2022 Episodic Other [...] OF NICOTINE DEPEND] Onset: 01-09-2022 Episodic Unclassified (7 sources) Finding of sensation of bladder 02-03-2021 [...] Duration: 30 Days Refills: 11 Pickup at [facility]/pharmacy #[id number] New vibegron (Gemtesa 75 mg oral tablet) 1 Tablets By Mouth Every day Urethral stricture OAB (overactive bladder) Recurrent UTI Duration: 30 Days Refills: 11 Pickup at [facility]/pharmacy #[id number] Unchanged acetaminophen-oxycod one (acetaminophen-oxyco done 325 [...] Capsules By Mouth Every day Pharmacy Information [facility]/pharmacy #[id number]: [address] [place], [place] [phone] Allergies No Known Allergies Problems Ongoing - [...] for choosing us for your care. [facility] Patient Educationon 08-28-19 Patient Education Obstetrics [...] health care provider. General instructions ? Take ucfq-poo-ckbmxoe and prescription medicines only as told by [...] monitor yo (more content not included)... [facility] Urology Office/Clinic Noteon 08-28-2023 Urology Office/Clinic [...] day(s), # 30 tab(s), Refills(s) 11, Pharmacy: [facility]/pharmacy #[id number], 165, cm, 08/28/23 15:03:00 EDT, Height/Length Dosing, 90, kg, 08/28/23 15:03:00 EDT, Weight Dosing vibegron, 75 mg = 1 tab(s), Oral, Daily, X 30 day(s), # 30 tab(s), Refills(s) 11, Pharmacy: [facility]/pharmacy #[id number], 165, cm, 08/28/23 15:03:00 EDT, Height/Length Dosing, 90, kg, 08/28/23 15:03:00 EDT, Weight Dosing 03896 Measure Post Void residual urine and/or bladder capacity by US- non-imaging Body Mass Index (BMI) documented 3008F Complex E&M Add on G2211 Current tobacco non-user 1036F Depression Screening Negative 3352F E&M of Est. Patient Moderate 30-39 Min 87951 Influenza immunization status assessed 1030F Medication list [...] Urnls Dip Stick Auto w/o Microscopy POC 60944 2. Urethral stricture (N35.919: Unspecified urethral stricture, [...] day(s), # 30 tab(s), Refills(s) 11, Pharmacy: [facility]/pharmacy #[id number], 165, cm, 08/28/23 15:03:00 EDT, Height/Length Dosing, 90, kg, 08/28/23 15:03:00 EDT, Weight Dosing vibegron, 75 mg = 1 tab(s), Oral, Daily, X 30 day(s), # 30 tab(s), Refills(s) 11, Pharmacy: [facility]/pharmacy #[id number], 165, cm, 08/28/23 15:03:00 EDT, Height/Length Dosing, 90, kg, 08/28/23 15:03:00 EDT, Weight Dosing 17400 Measure Post Void residual urine and/or bladder capacity by US- non-imaging Body Mass Index (BMI) documented 3008F Complex E&M Add on G2211 Current tobacco non-user 1036F Depression Screening Negative 3352F E&M of Est. Patient Moderate 30-39 Min 23998 Influenza immunization status assessed 1030F Medication list [...] 50k Proteus (more content not included)... [facility] Comment on above: Result Comment: Elec tronically Signed By: MIAH ROE, BRENDA Poole\.br\Date and Time Signed: 08/28/23 15:38 EDT Physician Orderon 08-02-2023 Physician Order [id number] #1.00TIFF [facility] Consent for Procedure/Surger yon 07-23-2023 Consent for Procedure/Surgery [id number] 4#1.00TIFF [facility] Consent for Treatmenton 07-12 Consent for Treatment [id number] 1#1.00TIFF [facility] Inpatient Patient Summaryon 07-23-2023 Inpatient Patient Summary [place] [id number] Clinical Summary Person Information Name: AARON JJ Age: 78 Years : 1945 Sex: Female PCP: JEREMIAH REED MD Marital Status: Phone: [phone] Race: White Ethnicity: Non- or Language: Bahamian Visit Id: Visit Reason: URETHER STRICTURE AND RECURRENT UTI Speciality: Acuity: Enc Type: Outpatient Med Service: Surgery Arrival: 07/23/2023 13:44:06 Discharge: Dispo Type: Address: [address] [place] [address] [address] [id number] Provider Notes: Diagnosis: Problems Active Recurrent UTI [...] Follow up: With: Address: When: BRENDA MARIN [address] [place], [place] [address] [id number] [facility] (1) Comments: Call for followup appointment with Georgette Marin PA-c within the next 2 months or so to monitor you. Please finish your antibiotics and have a great day. Patient Education Information: EU - Cystoscopy with Urethral Dilation Discharge Instructions (Custom) [facility] IntraOperative Documentson 0 07-23-2023 IntraOperative Documents [id number] 5#1.00TIFF [facility] Main OR Intraoperative Recor don 07-23-2023 Main OR Intraoperative Record IntraOp Document Type FTURO Summary Primary Physician: Cayden ROBB MD Finalized Date/Time: 07/23/23 14:33:02 Pt. Name: HERMELINDA JJRANJITH Odom/Sex: 1945 Female Med Rec #: [id number] Physician: Cayden ROBB MD Financial #: [id number] Pt. Type: O Room/Bed: / Admit/Disch: 07/23/23 13:44:06 - Institution: Case Times FTURO Entry 1 Patient Times In Room 07/23/23 14:19:00 Out Room 07/23/23 14:31:00 Procedure Times Start 07/23/23 14:22:00 Stop 07/23/23 14:26:00 Anesthesia Times Last Modified By: Jonh ALVARES, Crissy Hollins 07/23/23 14:26:23 Case Attendance FTURO Entry 1 Entry 2 Entry 3 Case Attendee Cayden ROBB MD, RN, Son Tellez Role Performed Surgeon - Primary Solar Electric Practitioner - Primary Scrub - Primary Time In [...] URETHRAL DILATION Primary Procedure Yes Primary Surgeon Cayedn ROBB MD Start 07/23/23 14:07:00 Stop 07/23/23 [...] Out Cayden ROBB MD, Verified (If Participants Crissy Borja RN Applicable) Murali De Guzman Kendall R Time [...] By: Crissy Borja RN 07/23/23 14:33 [facility] Main OR Preoperative Recordo n 07-23-2023 Main OR Preoperative Record Holding Area Document Type FTURO Summary Primary Physician: Cayden ROBB MD Finalized Date/Time: 07/23/23 14:14:06 Pt. Name: AARON JJ/Sex: 1945 Female Med Rec #: [id number] Physician: Cayden ROBB MD Financial #: [id number] Pt. Type: O Room/Bed: / Admit/Disch: 07/23/23 13:44:06 - Institution: Case Times Holding FTURO Pre-Care Text: Verifies consent for planned procedure, identifies individual values and wishes concerning care, includes family members in perioperative teaching Secures patient's records' belongings, and valuables, maintains patient's dignity and privacy, and maintains patient confidentiality Entry 1 In Holding 07/23/23 14:04:00 Outcomes Met? Yes Last Modified By: JOSE Markham RN, Ruthann 07/23/23 14:04:33 Post-Care Text: The patient participates [...] JOSE Markham RN, Ruthann 07/23/23 14:14 [facility] Operative Reporton Operative Report Patient: AARON JJ Age: 78 years Sex: Female : 1945 Associated Diagnoses: None Author: Cayden ROBB MD Procedure Operative Information Details: Date/ Time: 07/23/2023 14:29:00. Pre-Op Dx: Recurrent UTI ([id number] N39.0, Working, Medical), Unspecified urethral stricture, female (DRA99-IV N35.92, Working, Medical), Overactive bladder (NNA97-BO N32.81, Working, Medical). Post-Op Dx: Same. Anesthesia [...] urine. The Urethra was dilated to: 30 Guatemalan w/ sounds. Devices Implanted: None. Removal: Cystoscope is removed, The patient tolerated it well. Postoperative Information Discharge: Patient is discharged home with antibiotic coverage, Follow up arranged, F/U with Georgette Marin PA-C within the next 2-3 months. Monitor the urinary flow pattern. The goal is also to decrease UTI frequency. . [facility] Comment on above: Result Comment: Elec tronically Signed By: Cayden ROBB MD\.br\Date and Time Signed: 07/23/23 14:30 EDT Outpatient Surgery Discharge Instructionon 07-23-2023 Outpatient Surgery Discharge Instruction [address] [address] Patient Discharge Instructions PERSON INFORMATION Name: AARON [...] Follow up: With: Address: When: BRENDA MARIN [address] [place] [phone] [facility] (1) Comments: Call for followup appointment with [...] to serve you. Thank you for choosing [facility] C Urineon 07-11-2023 Bacteria identified Cx [...] Locations R1: This test was performed at: [facility], [address] [place] [address], [phone] , , [facility] Comment on above: Performed By: #### 2 [id number] #### [facility] [address] [place] [address] Ambulatory Visit Summaryon 0 07-09-2023 Ambulatory Visit [...] Follow-Up Appointments Sunday 9:00 AM EST Where: [facility] Sunday 2:30 PM EDT Where: [facility] Medications What How [...] for choosing us for your care. [facility] C Urineon 06-07-2023 Bacteria identified Cx Nom (U) Microbiology PROCEDURE: Urine Culture [R1] SOURCE: U CleanCatch BODY SITE: COLLECTED DATE/TIME: 06/05/2023 13:47 EST RECEIVED DATE/TIME: 06/05/2023 17:49 EST START DATE/TIME: 06/05/2023 17:49 EST FREE TEXT SOURCE: MIAH ROE, BERNDA MARIN PA-C, BRENDA E FINAL REPORTS Final Report [] Verified Date/Time: [...] Locations R1: This test was performed at: [facility], [address] [place] [address], [address] , , [facility] Comment on above: Performed By: #### 2 [id number] #### [facility] [address] [place] [address] Lab Reportson 06-06-2023 Lab Reports [id number] 7#1.00TIFF [facility] Screenson 06-06-2023 Screens [id number]# 1.00TIFF [facility] Ambulatory Visit Summaryon 0 06-05-2023 Ambulatory [...] Follow Up with CEZAR BERNAL, Cayden Hollins, URL When: Where: [address] [place] [address] [place] [address]- Medications What How Much When Instructions Unchanged [...] The main (more content not included)... [facility] Patient Educationon 06-05-19 Patient Education Urology [...] Follow these instructions at home: ? Take dqfg-oct-prdtkey and prescription medicines only as told by [...] provider. Document Revised: 03/07/2022 Document Reviewed: 03/07/2022 [employer] Patient Education ? 2022 [employer]. [facility] Urology Office/Clinic Noteon 06-05-2023 Urology Office/Clinic Note Chief Complaint 1yr HPI Staff Former DLS pt DX: OAB & Urethral Stricture *Vesicare 10 mg QHS Does not think Vesicare is working. Getting up 3-4x/night, every night. Denies current pain/burning and visible blood in urine. States she has had 2 UTI's since April. Was hospitalized back in March @ [facility] due to falling. (No C&S at [facility]) Also at [facility]. C&S 03/24/23 *>100k E Coli & 50-60k [...] available) Was hospitalized back in March @ [facility] due to falling. (No C&S at [facility]) Also at [facility]. UA today shows trace-intact blood, positive nitrates [...] evening fluids and reducing bladder irritants. Ordered: 20116 Measure Post Void residual urine and/or bladder [...] Urnls Dip Stick Auto w/o Microscopy POC 64598 Follow-up With When Contact Information CEZAR BERNAL, Cayden Hollins, URL [address] [address]- Additional Instructions: Schedule cysto/UD Patient Education Urethral Stricture Documentation recorded by the umm Mantilla accurately reflects the services(s) I performed and decisions made by me. Authenticated by Brenda Marin PA-C on 06/05/2023 17:59:01. IDori, personally scribed for Brenda Marin PA-C on [...] 2 tab (more content not included)... [facility] Comment on above: Result Comment: Elec tronically Signed By: BRENDA MARIN PA-C.br\Date and Time Signed: 06/05/23 17:59 EST\.br\Electronically Co-Signed By: Dori Mantilla.br\Date and Time Co-Signed: 06/05/23 13:35 EST Insurance Correspondence Off iceon 04-19-2023 Insurance Correspondence Office [id number] 8#1.00TIFF [facility] Discharge Instructionson Discharge Instructions [id number] 8#1.00TIFF [facility] Outside Recordson 04-14-2023 Outside Records [id number] 3#1.00TIFF [facility] BMPon 04-13-2023 Anion gap [Moles/Vol] 14 mmol/L Normal 6-16 [facility] Comment on above: Performed By: #### 2 [id number], [id number], [id number] #### [facility] [address] [place] [address] Calcium [Mass/Vol] 9.1 mg/dL Normal 8.9-11.1 [facility] Comment on above: Performed By: #### 2 [id number], [id number], [id number] #### [facility] [address] [place] [address] Chloride [Moles/Vol] 114 mmol/L High 101-111 [facility] Comment on above: Performed By: #### 2 [id number], [id number], [id number] #### [facility] [address] [place] [address] CO2 [Moles/Vol] 20 mmol/L Low 21-31 [facility] Comment on above: Performed By: #### 2 [id number], [id number], [id number] #### [facility] [address] [place] [address] Creatinine [Mass/Vol] 1.2 mg/dL Normal 0.5-1.3 [facility] Comment on above: Performed By: #### 2 580674, [id number], [id number] #### [facility] [address] [place] [address] Glucose [Mass/Vol] 96 mg/dL Normal 55-199 [facility] Comment on above: Result Comment: If t his glucose result represents a fasting glucose, interpretation should refer to the following reference range: 55-99 mg/dL Performed By: #### 2 102873, 1156503, [id number] #### [facility] [address] [place] [address] Potassium [Moles/Vol] 3.9 mmol/L Normal 3.5-5.3 [facility] Comment on above: Performed By: #### 2 087684, [id number], [id number] #### [facility] [address] [place] [address] Sodium [Moles/Vol] 144 mmol/L Normal 135-145 [facility] Comment on above: Performed By: #### 2 717574, [id number], [id number] #### [facility] [address] [place] [address] Urea nitrogen [Mass/Vol] 29 mg/dL High 5-21 [facility] Comment on above: Performed By: #### 2 274930, 2094665, [id number] #### [facility] [address] [place] [address] Urea nitrogen/Creatinine [Mass ratio] 24 No Units High 10-20 [facility] Comment on above: Performed By: #### 2 294951, 0110116, [id number] #### [facility] [address] [place] [address] CHEMISTRYOrdered By: SYSTEM SYSTEM on 04-13-2023 Anion gap [Moles/Vol] 14 mmol/L Normal 6 - 16 mEq/L [facility] Remisol Calcium [Mass/Vol] 9.1 mg/dL Normal 8.9 - 11. 1 mg/dL [facility] Chloride [Moles/Vol] 114 mmol/L High 101 [...] in LDL [Mass/Vol] 73 mg/dL Normal <=129mg/dL [facility] Cholesterol in VLDL [Mass/Vol] 21 mg/dL Normal 7 - 40 mg/dL [facility] Remisol CO2 [Moles/Vol] 20 mmol/L Low 21 - 31 mmol/L [facility] Creatinine [Mass/Vol] 1.2 mg/dL Normal 0.5 - 1.3 mg/dL [facility] Remisol GFR/1.73 sq M.predicted among non-blacks MDRD (S/P/Bld) [Vol rate/Area] 47 mL/min/1.73 m2 Low >=59mL/min/1 .73 m2 [facility] Chem S Comment on above: Interpretive Data: C hronic kidney disease could be indicated at eGFR's of less than 60 mL/min/1.73m2. Kidney failure is indicated at less than 15 mL/min/1.73m2. Glucose [Mass/Vol] 96 mg/dL Normal 55 - 199 mg/dL [facility] Remisol Comment on above: Interpretive Data: I f this glucose result represents a fasting glucose, interpretation should refer to the following reference range: 55-99 mg/dL Potassium [Moles/Vol] 3.9 mmol/L Normal 3.5 - 5.3 mmol/L [facility] Remisol Sodium [Moles/Vol] 144 mmol/L Normal 135 - 145 mmol/L [facility] Remisol Triglyceride [Mass/Vol] 106 mg/dL Normal <=149mg/dL [facility] Remisol Urea nitrogen [Mass/Vol] 29 mg/dL High 5 - 21 mg/dL [facility] Remisol Urea nitrogen/Creatinine [Mass ratio] 24 mg/mg High 10 - 20 FT Remisol Discharge Note-Nursingon Discharge Note-Nursing AARON JJ :1945 Visit Date:04/12/2023 Inpatient Discharge Instructions Your Care Team Admitting Physician - Tessie BERNALEfrain Consulting Physician - Ehsan Blair MD Reason [...] oral tablet) glucosamine oxymetazoline nasal (Afrin 0.05% [place]) Procedure History Cystourethroscopy with dilation of urethral [...] Pending Diagnostic Test Results None Pharmacy Information [facility] Discharge Instructions Follow up appts as writtenNo driving until cleared by PCP or neuroTake all medications as ordered, monitor prn medication use Previously Scheduled Follow-Up Appointments Sunday 1:00 PM EST With: MIAH ROE, BRENDA Poole Where: [facility] ED Note-Physicianon 04-13-20 ED Note-Physician Basic Information Time Seen: Abran Holguin DO 04/12/2023 12:16 Chief Complaint AMS History of [...] had a urinary tract infection diagnosed at [facility] for which she is on antibiotics. 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 [facility] Comment on above: Result Comment: Elec tronically Signed By: Abran Holguin DO\.br\Date and Time Signed: 04/12/23 22:13 EST Inpatient Clinical Summaryon 04-13-2023 Inpatient Clinical Summary [address] [address] Clinical Summary Person Information: Name: AARON JJ Age: 78 Years : 1945 Sex: Female PCP: JEREMIAH REED MD Marital Status: Race: White Ethnicity: Non- or Language: Bahamian Visit Id: Visit Reason: Altered mental status; AMS Speciality: Acuity: Enc Type: Observation Med Service: Medical Arrival: 04/12/2023 12:15:14 Discharge: Dispo Type: Admitted as IP to this [facility] Address: [address] [place] [address] [address] [place] [id number] Provider Notes: Diagnosis: 1:AMS (altered mental status); [...] Referring Physician: Follow up: With: Address: When: Johnnie BERNAL, Ehsan [place] [id number] Within 1 to 2 weeks Comments: This office is closed on Fridays. Please call the office on Sunday April 16, 2023 for a follow up appiontment. Thank you. With: Address: When: JEREMIAH DEREK [address] [place] [address] [facility] () Within 2 to 4 days Comments: Call for followup appointment With: Address: When: [facility] Comments: Call for followup appointment for anxiety/depression care. Type Location Start Finish State U[place] Office Visit [facility] AYDE [facility] 06/05/2023 1:00 PM 06/05/2023 1:15 PM Confirmed Patient Education Information: Confusion aspirin Normal [facility] Inpatient Patient Summaryon 04-13-2023 Inpatient Patient Summary [address] [address] Patient Discharge Instructions PERSON INFORMATION Name: AARON JJ Date of : 1945 Current Date: 04/13/2023 12:14:32 PHYSICIANS Admitting Physician: Efrain Kurtz MD Primary Care Physician: JEREMIAH REED MD PCP [...] With: Address: When: Johnnie BERNAL, ALPHONSE Choi [facility] [address] [place] [address] Within 1 to 2 weeks Comments: This office is closed on Fridays. Please call the office on Sunday April 16, 2023 for a follow up appiontment. Thank you. With: Address: When: JEREMIAH REED [address] [place] [address] Business (1) Within 2 to 4 days Comments: Call for followup appointment With: Address: When: [facility] Comments: Call for followup appointment for anxiety/depression care. In the event that this physician does not participate in your insurance network, please consult with your insurance company to find a nearby participating provider. Type Location Start Finish State [place] Office Visit [facility] AYDE [place] 06/05/2023 1:00 PM 06/05/2023 1:15 [...] 2 adán (more content not included)... [facility] Interdisciplinary Note - Danie e Manageron 04-13-2023 Interdisciplinary Note - Section Hand Pt is awake and alert in bed, previously rounded with Radha PENNY. Pending Neurology to see and pending MRI. Pending therapy evals, Observation status reviewed [facility] form reviewed, signed by pt and original provided. PT is independent from home, family at bedside and will transport at DC, Declines any concerns or anticipate DC needs. . PCP verified and insurance information reviewed and DME discussed. Contact information provided and white board updated. CRM returned to pt room to discuss DC plans. PT= HH and pt is agreeable to HH at DC, prefers to use [facility] [place] [facility] as she has used in past, referral to resource center, anticipate DC home today. 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 [facility] Comment on above: Result Comment: Elec tronically Signed By: Thu ALVARES, Sallie\.mario\Date and Time Signed: 04/13/23 12:17 EST Interdisciplinary Note - Ashly n 04-13-2023 Interdisciplinary Note - OT OT [facility] six clicks score 21/24 = no further OT needs. Patient requires Dist sup w/ transfers. completes Adls w/ dist sup after set up. Dc inpatient OT services as pt appears close to baseline status and has all bathroom dme already in place at home. Normal [facility] Interdisciplinary Note - Soc ial Workeron 04-13-2023 Interdisciplinary Note - Fiber Glass Worker This SW met with patient today [...] any substances. SW will remain available. Normal [facility] Lipid Panelon 04-13-2023 Cholesterol [Mass/Vol] 164 mg/dL Normal 120-[address] [facility] Comment on above: Performed By: #### 2 221934, 8321641, [id number] #### [facility] [address] [place] [address] Cholesterol in HDL [Mass/Vol] 62 mg/dL Invalid Interpretation Code [facility] Comment on above: Result Comment: HDL > or equal to 60 mg/dL: Low cardiovascular risk HDL < 40 mg/dL : High cardiovascular risk Performed By: #### 2 545108, 0923917, 84661624 #### [facility] [address] [place] [address] Cholesterol in LDL [Mass/Vol] 73 mg/dL Normal <=129 [facility] Comment on above: Performed By: #### 2 602022, 7351174, 93386804 #### [facility] [address] [place] [address] Cholesterol in VLDL [Mass/Vol] 21 mg/dL Normal 7-40 [facility] Comment on above: Performed By: #### 2 579308, 8326160, 22645339 #### [facility] [address] [place] [address] Triglyceride [Mass/Vol] 106 mg/dL Normal <=149 [facility] Comment on above: Performed By: #### 2 822461, 6031419, 76615081 #### [facility] [address] [place] [address] MRI Brain w/o Contraston MRI Brain w/o [...] LESLEY Technologist: MAXI Technical Comments None Normal [facility] Message from Medicareon Message from Medicare [id number] 20 [id number] #1.00TIFF Normal [facility] Monitor Recordon 04-13-2023 Monitor Record [id number] 6#1.00TIFF Normal [facility] Monitor Record [id number] 8#1.00TIFF Normal [facility] Monitor Record [id number] 0#1.00TIFF Normal [facility] eGFRon 04-13-2023 GFR/1.73 sq M.predicted among non-blacks MDRD (S/P/Bld) [Vol rate/Area] 47 mL/min/1.73 m2 Low >=59 [facility] Comment on above: Order Comment: Order added by Discern Expert. Result Comment: Engineering Associate sally kidney disease could be indicated at eGFR's of less than 60 mL/min/1.73m2. Kidney failure is indicated at less than 15 mL/min/1.73m2. Performed By: #### 2 972603, 6944628, 74453965 #### [facility] [address] [place] [address] Auto Diffon 04-12-2023 Basophils/100 WBC (Bld) 0.4 % Normal 0.0-2.0 [facility] Comment on above: Order Comment: Order Added by Discern Expert. Performed By: #### 2 996375, 73152760, 0980711, 29332518, 7688456, 84597608, 481764972, 05714546, 2905099, 6961008, 4547345, 7579968 #### [facility] [address] [place] [address] Basophils/Leukocytes Auto (Bld) [Pure # fraction] 0.1 E9/L Normal 0.0-0.2 [facility] Comment on above: Order Comment: Order Added by Discern Expert. Performed By: #### 2 417797, 19466048, 3983367, 18444540, 9016668, 64140391, 249843562, 68104965, 2934024, 6501962, 1474326, 7505008 #### [facility] [address] [place] [address] Eosinophils/100 WBC (Bld) 0.1 % Normal 0.0-8.0 [facility] Comment on above: Order Comment: Order Added by Discern Expert. Performed By: #### 2 063880, 55018278, 5937955, 95161723, 8105891, 54020658, 414895709, 84675978, 7915088, 1057498, 6693207, 6557730 #### [facility] [address] [place] [address] Eosinophils/Leukocytes Auto (Bld) [Pure # fraction] 0.0 E9/L Normal 0.0-0.5 [facility] Comment on above: Order Comment: Order Added by Discern Expert. Performed By: #### 2 392747, 15331006, 4210132, 04228344, 8075544, 47817605, 698747358, 39408606, 4196033, 0403252, 7527266, 9176197 #### [facility] [address] [place] [address] Lymphocytes/100 WBC (Bld) 9.7 % Low 14.0-50.0 [facility] Comment on above: Order Comment: Order Added by Discern Expert. Performed By: #### 2 744285, 74786713, 7442936, 33684114, 6447880, 94394756, 925270204, 43735522, 6128028, 1066410, 6545161, 0694664 #### [facility] [address] [place] [address] Lymphocytes/Leukocytes Auto (Bld) [Pure # fraction] 1.5 E9/L Normal 1.0-4.0 [facility] Comment on above: Order Comment: Order Added by Discern Expert. Performed By: #### 2 891126, 32235595, 3329387, 32645494, 4103900, 04765607, 420335956, 78026542, 2187460, 9332294, 8877304, 5189991 #### [facility] [address] [place] [address] Monocytes/100 WBC (Bld) 7.8 % Normal 4.0-14.0 [facility] Comment on above: Order Comment: Order Added by Discern Expert. Performed By: #### 2 254619, 60712477, 9518203, 89047590, 6110581, 45374075, 947734021, 26585300, 9324467, 1345453, 5151270, 5344160 #### [facility] [address] [place] [address] Monocytes/Leukocytes Auto (Bld) [Pure # fraction] 1.2 E9/L High 0.2-1.0 [facility] Comment on above: Order Comment: Order Added by Discern Expert. Performed By: #### 2 878130, 18216159, 2656611, 01868871, 7617806, 65478954, 579769656, 67519408, 8535500, 1597883, 0692257, 3126983 #### [facility] [address] [place] [address] Neutrophils/100 WBC (Bld) 82.0 % High 36.0-75.0 [facility] Comment on above: Order Comment: Order Added by Discern Expert. Performed By: #### 2 497920, 58945905, 0817307, 80258929, 4076386, 13226132, 293542557, 59374337, 7494582, 1936146, 7330464, 1433566 #### [facility] [address] [place] [address] Neutrophils/Leukocytes Auto (Bld) [Pure # fraction] 12.4 E9/L High 2.0-7.5 [facility] Comment on above: Order Comment: Order Added by Discern Expert. Performed By: #### 2 599212, 25325775, 4111062, 70222357, 5907805, 09782449, 044282964, 63715695, 1231232, 5580386, 7666581, 1558588 #### [facility] [address] [place] [address] [facility] 04-12-2023 Creatinine [Mass/Vol] 1.8 mg/dL High 0.5-1.3 [facility] Comment on above: Performed By: #### 2 497208, 61619004, 2045817, 91955783, 4749039, 14927967, 266824611, 07229205, 2783717, 6632087, 2030383, 6644940 ####[facility] [address] [place] [address] Urea nitrogen [Mass/Vol] 39 mg/dL High 5-21 [facility] Comment on above: Performed By: #### 2 566433, 51097932, 3727956, 26069856, 1595866, 26439257, 444551055, 22707920, 8968784, 2345351, 6694735, 4201979 ####[facility] [address] [place] [address] Urea nitrogen/Creatinine [Mass ratio] 22 No Units High 10-20 [facility] Comment on above: Performed By: #### 2 642396, 70453152, 8253880, 96790957, 7488079, 59104968, 343439578, 97816891, 1325110, 6710050, 5010521, 8337184 ####[facility] [address] [place] [address] Anion gap [Moles/Vol] 16 mmol/L Normal 6-16 [facility] Comment on above: Performed By: #### 2 979733, 72362825, 5175567, 36587534, 4459896, 12643258, 065637677, 75874365, 7469142, 6700644, 8613445, 5848570 ####[facility] [address] [place] [address] Calcium [Mass/Vol] 10.0 mg/dL Normal 8.9-11.1 [facility] Comment on above: Performed By: #### 2 538924, 23766063, 0799892, 06782180, 6913235, 46581807, 154101722, 93946107, 6297116, 6721391, 3121766, 0266116 ####[facility] [address] [place] [address] Chloride [Moles/Vol] 109 mmol/L Normal 101-111 [facility] Comment on above: Performed By: #### 2 494044, 09386597, 7826948, 61710428, 3727100, 83899787, 582954428, 67724587, 1166491, 6638876, 7633356, 0045127 ####[facility] [address] [place] [address] CO2 [Moles/Vol] 23 mmol/L Normal 21-31 [facility] Comment on above: Performed By: #### 2 044594, 21467370, 0058196, 48119817, 4652154, 48370505, 274262052, 07033694, 8948542, 8084669, 6803219, 7085286 ####[facility] [address] [place] [address] Glucose [Mass/Vol] 89 mg/dL Normal 55-199 [facility] Comment on above: Result Comment: If t his glucose result represents a fasting glucose, interpretation should refer to the following reference range: 55-99 mg/dL Performed By: #### 2 459330, 02900496, 7341328, 56513241, 5656739, 39918254, 794490200, 35007007, 1491685, 3281493, 7309345, 3978008 ####[facility] [address] [place] [address] Potassium [Moles/Vol] 4.3 mmol/L Normal 3.5-5.3 [facility] Comment on above: Performed By: #### 2 970202, 07306510, 5325822, 67205464, 8669012, 13348958, 989577714, 39636463, 5173254, 4282396, 5461928, 3607766 ####[facility] [address] [place] [address] Sodium [Moles/Vol] 144 mmol/L Normal 135-145 [facility] Comment on above: Performed By: #### 2 523306, 96913901, 9092616, 71422539, 6826672, 64195016, 806102342, 41921666, 8086820, 2080997, 2115024, 5925962 ####[facility] [address] [place] [address] CBC w/ Auto Diffon 3 Erythrocyte distribution width (RBC) [Ratio] 15.3 % High 10.9-14.2 [facility] Comment on above: Performed By: #### 2 942571, 79791925, 0129853, 54597093, 6262706, 46121990, 215506180, 23293613, 5861468, 9307611, 3116163, 4105535 #### [facility] [address] [place] [address] Hematocrit (Bld) [Volume fraction] 44.4 % Normal 34.0-46.0 [facility] Comment on above: Performed By: #### 2 879528, 69161361, 5729873, 61185394, 5714765, 02408243, 336719920, 19561417, 6664362, 4723808, 6364926, 0554502 #### [facility] [address] [place] [address] Hemoglobin (Bld) [Mass/Vol] 14.0 g/dL Normal 12.0-16.0 [facility] Comment on above: Performed By: #### 2 130194, 34561032, 4091670, 04222545, 7804786, 48679110, 631280653, 19178637, 2899772, 8234947, 3314459, 0035237 #### [facility] [address] [place] [address] MCH (RBC) [Entitic mass] 28.5 pg Normal 27.0-34.0 [facility] Comment on above: Performed By: #### 2 992441, 19616630, 4454793, 13971187, 0850783, 12089022, 842432205, 84267107, 0799136, 5227784, 4936143, 9569653 #### [facility] [address] [place] [address] MCHC (RBC) [Mass/Vol] 31.6 g/dL Normal 31.4-36.0 [facility] Comment on above: Performed By: #### 2 601962, 83700159, 1157424, 49128929, 9373999, 52196437, 100647075, 23488166, 4543815, 7916452, 3852230, 7925986 #### [facility] [address] [place] [address] MCV (RBC) [Entitic vol] 89.9 fL Normal 80.0-100.0 [facility] Comment on above: Performed By: #### 2 306298, 06161868, 5184221, 62160881, 9762244, 05009661, 317035036, 84364353, 3816404, 0238332, 6179181, 4748853 #### [facility] [address] [place] [address] Platelet mean volume (Bld) [Entitic vol] 9.8 fL Normal 6.4-10.8 [facility] Comment on above: Performed By: #### 2 589144, 42192332, 4618880, 29315612, 9036511, 41415840, 937043156, 40578735, 1784090, 1511797, 6821946, 4523533 #### [facility] [address] [place] [address] Platelets (Bld) [#/Vol] 285.0 E9/L Normal 150.0-500.0 [facility] Comment on above: Performed By: #### 2 778252, 71788472, 2808889, 31129455, 1020954, 75359153, 993458912, 76694219, 8627663, 1599632, 5791452, 5293416 #### [facility] [address] [place] [address] RBC (Bld) [#/Vol] 4.9 E12/L Normal 4.3-5.9 [facility] Comment on above: Performed By: #### 2 079868, 32782795, 6460276, 07205861, 7904584, 64669271, 010760271, 12372132, 8354908, 8432426, 9591515, 8432247 #### [facility] [address] [place] [address] WBC corrected for nucl RBC Auto (Bld) [#/Vol] 15.1 E9/L High 4.0-11.0 [facility] Comment on above: Performed By: #### 2 586832, 06662707, 5191784, 11147480, 6381455, 20878706, 041707851, 47485959, 6889361, 1781938, 6566592, 7866507 #### [facility] [address] [place] [address] CHEMISTRYOrdered By: SYSTEM SYSTEM on 04-12-2023 Amphetamines [...] 39 mg/dL High 5 - 21 mg/dL [facility] Remisol Urea nitrogen/Creatinine [Mass ratio] 22 mg/mg High 10 - 20 [facility] Remisol CHEMISTRYOrdered By: Shauna ekndall on 04-12-2023 HbA1c (Bld) [Mass fraction] 5.9 % Normal <=5.9% [facility] ChemAutoSS CHEMISTRYOrdered By: Lab ROP User on 04-12-2023 Glucose [Mass/Vol] 88 mg/dL Normal 55 - 99 mg/dL [facility] POC Subsection Comment on above: Result Comment: Jose matos RN/ POC Username [place] Invalid Interpretation Code [facility] POC Subsection Sodium [Moles/Vol] [id number] mmol/L Invalid Interpretation Code [facility] POC Subsection Sodium [Moles/Vol] 731313042 mmol/L Invalid Interpretation Code [facility] POC Subsection COAGULATIONOrdered By: Myra Grayson on 04-12-2023 aPTT Coag (PPP) [Time] 29.5 s Normal 25.1 - 36.5 second(s) [facility] Auto Coag Comment on above: Interpretive Data: [...] the same coagulation reagent and instrumentation as [facility]. Currently there are no coagulation studies available worldwide for children to 14 days, and no normal ranges. Heparin therapeutic range (represented by Anti-Factor Xa activity of 0.2 - 0.4 U/mL) corresponds to PTT of 56.6 - 109.0 sec. INR Coag (PPP) [Relative time] 0.9 {INR} Invalid Interpretation Code [facility] Auto Coag Comment on above: Interpretive Data: I NR results are specifically intended to assess patients stabilized on long-term Anticoagulation therapy suggested INR s Less Intensive Anticoagulation 2.0 3.0 Conventional Range 3.0 4.5 PT Coag (PPP) [Time] 10.4 s Normal 9.4 - 1 2.5 second(s) [facility] Auto Coag Comment on above: Interpretive Data: [...] the same coagulation reagent and instrumentation as [facility]. Currently there are no coagulation studies available [...] MD Transcribed by: LESLEY Technologist: SOFIA Normal [facility] CT Spine Cervical w/o Contra ston [...] MD Transcribed by: LESLEY Technologist: SOFIA [facility] Capillary Glucose POCon 03-16 Glucose [Mass/Vol] 88 mg/dL Normal 55-99 [facility] Comment on above: Result Comment: Jose matos RN/ Performed By: #### 2 43965436 #### [facility] [address] [place] [address] Consent for Treatmenton 03-16 Consent for Treatment [id number] #1.00TIFF Normal [facility] ED Clinical Summaryon 2022 ED Clinical Summary [address] [address] ED Clinical Summary Person Information Name: AARON JJ/[place] Age: 78 Years : 1945 Sex: Female Language: Bahamian PCP: JEREMIAH REED MD Marital Status: Visit Id: Visit Reason: Altered mental status; AMS Speciality: Acuity: 2 Enc Type: Observation Med Service: Emergency Arrival: 04/12/2023 12:15:14 Discharge: LOS: 000 04:45 Checkin: 04/12/2023 12:15:14 Checkout: 04/12/2023 17:00:36 Dispo Type: Admitted as IP to this [facility] EVENTS: Event Name Event Status Request [...] Labs Collected 04/12/2023 16:57:50 04/12/2023 16:57:50 [facility] [address] [place] [id number] PHYS DOC NOTES: MEDICAL INFORMATION: Prescriptions Given: [...] vein thrombosis (DVT) prophylaxis; Depression, unspecified [facility] ED Patient Education Noteon 04-12-2023 ED Patient Education Note Normal [facility] ED Patient Summaryon 023 ED Patient Summary [place] [id number] Patient Discharge Instructions Person Information Name: АННАHERMELINDAAARON J Age: 78 Years Arrival Date: 04/12/2023 12:15:14 Discharge Diagnosis: 1:AMS (altered mental status); 2:Elevated serum creatinine; 3:HTN (hypertension); 4:Anxiety and depression; 5:Peripheral neuropathy; 6:Chronic GERD; 7:OAB (overactive bladder); 8:Obesity; 9:On deep vein thrombosis (DVT) prophylaxis; Depression, unspecified Primary Care Physician: JEREMIAH REED MD Provider Information Primary Provider: Abran Holguin DO Advanced Salesperson Men'S Hats:None The exam and treatment you received in the Emergency Department were for an urgent problem and are not intended as complete care. It is important that you follow up with a doctor, nurse practitioner, or physician?s physicians assistant for ongoing care. If your symptoms [...] opioids can be used to help relieve wycvdoos-fa-csbogu pain and are often prescribed following a [...] with addiction, tell your health ambulatory care and ask for guidance or (more content not included)... [facility] Ethanolon 04-12-2023 Ethanol [Mass/Vol] mg/dL Normal <=7 [facility] Comment on above: Performed By: #### 2 856476 ####[facility] [address] [place] [address] Folateon 04-12-2023 Folate [Mass/Vol] ng/mL Normal >=6.7 [facility] Comment on above: Performed By: #### 2 842941, 19843074, 6723058, 24064898, 5932852, 19587098, 965043570, 32156668, 5639543, 6064842, 7538987, 1801657 ####[facility] [address] [place] [address] HEMATOLOGYOrdered By: SYSTEM SYSTEM on 04-12-2023 Basophils/100 [...] 15.1 E9/L High 4.0 - 11.0 E9/L [facility] HemeAutoSS Hep Func Panelon 04-12-2023 Albumin [Mass/Vol] 4.4 g/dL Normal 3.3-5.0 [facility] Comment on above: Performed By: #### 2 509729, 96440392, 0796292, 96022504, 6753120, 53067079, 620390976, 39144949, 4908843, 9470026, 4027701, 5791998 ####[facility] [address] [place] [address] Albumin/Globulin (S) [Mass conc ratio] 1.3 Normal 1.1-2.2 [facility] Comment on above: Performed By: #### 2 695664, 86943174, 1519197, 57981709, 2169126, 37371574, 571208131, 26315636, 2409044, 1706635, 9633083, 9644134 ####[facility] [address] [place] [address] ALP [Catalytic activity/Vol] 78 Int._Unit/L Normal 21-98 [facility] Comment on above: Performed By: #### 2 014855, 44076595, 8561842, 27979788, 0957303, 71629956, 993430867, 91214882, 4916965, 0629172, 2159368, 4258224 ####[facility] [address] [place] [address] ALT No additional P-5'-P [Catalytic activity/Vol] 22 Int._Unit/L Normal 6-46 [facility] Comment on above: Performed By: #### 2 628227, 65324932, 6295848, 71474949, 5026887, 56713157, 131377423, 87248914, 4907630, 0930395, 5929896, 2132312 ####[facility] [address] [place] [address] AST [Catalytic activity/Vol] 25 Int._Unit/L Normal 5-43 [facility] Comment on above: Performed By: #### 2 933035, 33196443, 8722592, 11224971, 2261307, 06672676, 218439184, 13706538, 9601086, 2902023, 3817296, 9703260 ####[facility] [address] [place] [address] Bilirubin [Mass/Vol] 0.7 mg/dL Normal 0.0-1.1 [facility] Comment on above: Performed By: #### 2 210653, 60410628, 3200656, 55262375, 7717850, 52451751, 923975645, 74977339, 0845093, 1880718, 2286970, 1240306 ####[facility] [address] [place] [address] Bilirubin.direct [Mass/Vol] 0.1 mg/dL Normal 0.1-0.4 [facility] Comment on above: Performed By: #### 2 387723, 78781026, 0165513, 72046209, 8484477, 62659680, 714974346, 54895449, 7149396, 1707608, 2148183, 5020328 ####[facility] [address] [place] [address] Bilirubin.indirect [Mass or moles/Vol] 0.6 mg/dL Normal 0.1-0.9 [facility] Comment on above: Performed By: #### 2 311739, 39047168, 1872935, 05400289, 4043730, 19877993, 861079781, 18772411, 9595611, 5743925, 6012679, 9052766 ####[facility] [address] [place] [address] Globulin (S) [Mass/Vol] 3.3 g/dL Normal 1.4-4.0 [facility] Comment on above: Performed By: #### 2 829411, 80484942, 4696350, 99731663, 9416651, 71196799, 444472570, 31984902, 2148088, 0882451, 4903750, 3013287 ####[facility] [address] [place] [address] Protein [Mass/Vol] 7.7 g/dL Normal 6.0-7.8 [facility] Comment on above: Performed By: #### 2 334404, 06893600, 9165120, 19848077, 0591592, 97448772, 868337381, 88683139, 0071217, 3963689, 1477645, 6959774 ####[address] [place] [address] EbcF0fvn 04-12-2023 HbA1c (Bld) [Mass fraction] 5.9 % Normal <=5.9 [facility] Comment on above: Performed By: #### 2 117913, 23669526, 2285144, 12503396, 5884778, 66879376, 290400890, 04457310, 3853707, 3795591, 7041544, 8359002 ####[facility] [address] [place] [address] Magnesiumon 04-12-2023 Magnesium [Mass/Vol] 2.0 mg/dL Normal 1.3-2.4 [facility] Comment on above: Performed By: #### 2 807688, 27008657, 6980290, 33272153, 7007065, 88897834, 030625642, 54363781, 1132104, 6393116, 4409184, 6426424 ####[facility] [address] [place] [address] Monitor Recordon 04-12-2023 Monitor Record [id number] 24#1.00TIFF Normal [facility] PT & PTTon 04-12-2023 aPTT Coag (PPP) [Time] 29.5 second(s) Normal 25.1-36.5 [facility] Comment on above: Result Comment: Para [...] the same coagulation reagent and instrumentation as [facility]. Currently there are no coagulation studies available worldwide for children to 14 days, and no normal ranges. Heparin therapeutic range (represented by Anti-Factor Xa activity of 0.2 - 0.4 U/mL) corresponds to PTT of 56.6 - 109.0 sec. Performed By: #### 2 889439, 12012225, 0570606, 11900830, 3920306, 63830648, 848489344, 81825072, 1891807, 7546269, 0777522, 1350652 #### [facility] [address] [place] [address] INR Coag (PPP) [Relative time] 0.9 {INR} Invalid Interpretation Code [facility] Comment on above: Result Comment: INR results are specifically intended to assess patients stabilized on long-term Anticoagulation therapy suggested INR?s ?Less Intensive Anticoagulation? 2.0 ? 3.0 Conventional Range 3.0 ? 4.5 Performed By: #### 2 013717, 86279862, 5687978, 36889491, 0769263, 77430516, 602462998, 86818516, 2976067, 1960559, 7124846, 4083591 #### [facility] [address] [place] [address] PT Coag (PPP) [Time] 10.4 second(s) Normal 9.4-12.5 [facility] Comment on above: Result Comment: 15 [...] the same coagulation reagent and instrumentation as [facility]. Currently there are no coagulation studies available worldwide for children to 14 days, and no normal ranges. Performed By: #### 2 290919, 77262849, 9733538, 57232324, 2351467, 83906330, 502701869, 80673764, 5794165, 2972191, 3968277, 4634454 #### [facility] [address] [place] [address] Pre-Arrival Noteon 3 Pre-Arrival Note Pre-Arrival Summary Name: , Current Date: 04/12/2023 12:18:15 EST Gender: Female Date of : Age: 88 Pre-Arrival Type: EMS ETA: 04/12/2023 12:29:00 EST Primary Care Physician: Presenting Problem: altered mental status Pre-Arrival User: Brenda Miller RN Referring Source: Location: Completion Date/Time: 04/12/2023 11:59:00 [facility] Emergency Department Pre-Hospital Report Form Vital Signs: Pre-Hospital Report: Treatment in Route: Response to Treatment: Misc. Issues: Normal [facility] RAD - MRI Screening Formon 1 06-12-2022 RAD - MRI Screening Form [id number] 7#1.00TIFF Normal [facility] TSH With T4fr Reflexon 04-12 TSH Qn 0.52 m[IU]/L Normal 0.34-5.60 [facility] Comment on above: Performed By: #### 2 865575, 48736506, 4775713, 49261953, 8294473, 05418082, 180578144, 51748211, 9037087, 9274224, 3662715, 4837879 ####[facility] [address] [place] [address] Troponin 0 Hr.on 04-12-2023 Troponin I.cardiac [Mass/Vol] 11.90 pg/mL Normal 10.10-27.10 [facility] Comment on above: Order Comment: tez LINTON RN is drawing labs and sending roz523 04/12/2023 12:26:28 EST Result Comment: The 95% CI (Confidence Interval) PPV (Positive Predictive Value) for myocardial infarction in females is 38 pg/mL, in males 51 pg/mL. The results should be used in conjunction with clinical conditions of myocardial infarction. (Access High Sensitivity Troponin I Instructions For Use, Laly Dubois, December 2017) Performed By: #### 2 169723, 89482401, 3736622, 37985848, 3865256, 04254465, 554785217, 76207246, 3125868, 0581174, 0419851, 1504894 ####[facility] [address] [place] [address] U Drug Screenon 04-12-2023 Benzodiazepines Ql (U) Positive Abnormal Negative [facility] Comment on above: Result Comment: Crit ical Result UD_BENZ:POS Called to ABRAN HOLGUIN AT ER by URSULA LOZANO And Read Back For Confirmation at: 04/12/2023 15:35:32\Unconfirmed by alternate method\Results verified by repeat analysis\No confirmation requested by Physican Negative Cutoff: <200 ng/mL Performed By: #### 2 190100 #### [facility] [address] [place] [address] Amphetamines Screen method >1000 ng/mL Ql (U) Negative Normal Negative [facility] Comment on above: Result Comment: Nega tive Cutoff: <1000 ng/mL Performed By: #### 2 388867 #### [facility] [address] [place] [address] Barbiturates Screen Ql (U) Negative Normal Negative [facility] Comment on above: Result Comment: Nega tive Cutoff: <200 ng/mL Performed By: #### 2 142758 #### [facility] [address] [place] [address] Cocaine Ql (U) Negative Normal Negative [facility] Comment on above: Result Comment: Nega tive Cutoff: <300 ng/mL Performed By: #### 2 800486 #### [facility] [address] [place] [address] Opiates Screen Ql (U) Negative Normal Negative [facility] Comment on above: Result Comment: Nega tive Cutoff: <300 ng/mL Performed By: #### 2 704002 #### [facility] [address] [place] [address] Phencyclidine Screen method >25 ng/mL Ql (U) Negative Normal Negative [facility] Comment on above: Result Comment: Nega tive Cutoff: <25 ng/mL These drug screen results are to be used for medical (i.e., treatment) purposes only. Unconfirmed drug screening results must not be used for non-medical purposes (e.g., employment testing, legal testing). Performed By: #### 2 512797 #### [facility] [address] [place] [address] Tetrahydrocannabinol Screen method >50 ng/mL Ql (U) Negative Normal Negative [facility] Comment on above: Result Comment: Nega tive Cutoff: <50 ng/mL Performed By: #### 2 586036 #### [facility] [address] [place] [address] UA With Cult Reflexon 2022 Bacteria LM Ql (Urine sed) TRACE Normal Trace [facility] Comment on above: Performed By: #### 2 624797 #### [facility] [address] [place] [address] Bilirubin Ql (U) Negative Normal Negative [facility] Comment on above: Performed By: #### 2 260507 #### [facility] [address] [place] [address] Clarity (U) CLEAR Normal Clear [facility] Comment on above: Performed By: #### 2 905096 #### [facility] [address] [place] [address] Color (U) YELLOW Normal Yellow [facility] Comment on above: Performed By: #### 2 467250 #### [facility] [address] [place] [address] Epithelial cells.squamous LM.HPF (Urine sed) [#/Area] 0-2 Normal 0-2 [facility] Comment on above: Performed By: #### 2 092630 #### [facility] [address] [place] [address] Glucose Test strip (U) [Mass/Vol] Negative Normal Negative [facility] Comment on above: Performed By: #### 2 864547 #### [facility] [address] [place] [address] Hemoglobin Ql (U) Negative Normal Negative [facility] Comment on above: Performed By: #### 2 603481 #### [facility] [address] [place] [address] Ketones (U) [Mass/Vol] TRACE Abnormal Negative [facility] Comment on above: Performed By: #### 2 701399 #### [facility] [address] [place] [address] [place].plasma/[place]. RBC (Bld) [Mass ratio] 0-3 Normal 0-3 [facility] Comment on above: Performed By: #### 2 758939 #### [facility] [address] [place] [address] Mucus Ql (Urine sed) TRACE Normal [facility] Comment on above: Performed By: #### 2 851242 #### [facility] [address] [place] [address] Nitrite Ql (U) Negative Normal Negative [facility] Comment on above: Performed By: #### 2 638417 #### [facility] [address] [place] [address] pH (U) 5.0 [pH] Invalid Interpretation Code 5.0-9.0 [facility] Comment on above: Performed By: #### 2 003034 #### [facility] [address] [place] [address] Protein (U) [Mass/Vol] TRACE Abnormal Negative [facility] Comment on above: Performed By: #### 2 677440 #### [facility] [address] [place] [address] Specific gravity (U) [Rel density] >=1.030 Invalid Interpretation Code 1.005-1.030 [facility] Comment on above: Performed By: #### 2 220590 #### [facility] [address] [place] [address] Type of Urine collection method Catheter Normal [facility] Comment on above: Performed By: #### 2 748842 #### [facility] [address] [place] [address] Urobilinogen Qn (U) 0.2 {Nevaeh'U}/dL Normal 0.0-1.0 [facility] Comment on above: Performed By: #### 2 564728 #### [facility] [address] [place] [address] WBC Auto Ql (U) Negative Normal Negative [facility] Comment on above: Performed By: #### 2 089332 #### [facility] [address] [place] [address] WBC casts LM.LPF (Urine sed) [#/Area] 0-3 Normal [facility] Comment on above: Performed By: #### 2 660445 #### [facility] [address] [place] [address] WBC LM.HPF (Urine sed) [#/Area] 0-5 Normal 0-5 [facility] Comment on above: Performed By: #### 2 090776 #### [facility] [address] [place] [address] URINALYSISOrdered By: Bonny Workman on 04-12-2023 Bacteria [...] Interpretation Code Negative [facility] UA Auto SS [place].plasma/[place]. RBC (Bld) [Mass ratio] 0-3 /HPF Normal [...] [facility] UA Auto SS Urobilinogen Qn (U) 0.7015858 {Nevaeh'U}/dL Normal 0.0 - 1.0 EU/dL [facility] UA Auto SS WBC Auto Ql (U) Negative (04/12/23 2:32 PM) Normal Negative [facility] UA Auto SS WBC casts LM.LPF (Urine sed) [#/Area] 0-3 (04/12/23 2:32 PM) Normal [facility] UA Auto SS WBC LM.HPF (Urine sed) [#/Area] 0-5 /HPF Normal 0-5/HPF [facility] UA Auto SS Vit B12on 04-12-2023 Cobalamin (Vitamin B12) [Mass/Vol] 1018 pg/mL Normal 50-1500 [facility] Comment on above: Performed By: #### 2 862190, 92331612, 5490164, 43873913, 5099287, 65943439, 062133672, 88491612, 0867593, 8119264, 7723273, 7805633 ####[facility] [address] [place] [address] XR Chest Single Viewon 04-12 XR Chest [...] mGy = na DAP = na Normal [facility] eGFRon 11-30-2023 GFR/1.73 sq M.predicted among non-blacks MDRD (S/P/Bld) [Vol rate/Area] 29 mL/min/1.73 m2 Low >=59 [facility] Comment on above: Order Comment: Order added by Discern Expert. Result Comment: Engineering Associate sally kidney disease could be indicated at eGFR's of less than 60 mL/min/1.73m2. Kidney failure is indicated at less than 15 mL/min/1.73m2. Performed By: #### 2 316632, 26545789, 1094239, 61212727, 4077570, 73424379, 172979206, 06806655, 3394396, 7772493, 3093217, 9453192 ####[facility] [address] [place] [address] XR CSPINE OBL FLEX_EXTon XR CSPINE OBL [...] by: Serena OSORIO Date: 2022-09-02 00:37 Normal [facility] MRI SHOULDER RT WO CONon MRI SHOULDER [...] by: EHSAN MILLER Date: 2022-08-22 09:25 Normal [facility] XR SHOULDER RT 2V or >on XR [...] by: BRENT MALDONADO Date: 2022-08-10 22:45 Normal [facility] CT CHEST WO CONon 06-12-2022 CT CHEST [...] Date: 2022-06-12 16:56 Normal [facility] VIT D 1 25 DIHYDROXYon 04-24 Calcitriol(1,25 di-OH Vit D) 91.0 pg/mL Critically high 24.8-81.5 [facility] Comment on above: Performed By: #### V [id number] #### [facility] [address] [place] [address] Dr. Helio Cee CULTURE URINEon 04-23-2022 CULTURE [...] Trimethoprim/Sulfame thoxazole <=20 S F Normal [facility] Comment on above: Performed By: #### U RCX #### [facility] [address] [address] [address] Helio Cee CBC AUTO DIFFon 04-21-2022 BASO # 0.0 103/ul Normal 0.0-0.1 [facility] Comment on above: Performed By: #### E RUR #### [facility] [address] [place] [address] Dr. Helio Cee Basophils/100 WBC (Bld) 0.4 % Normal 0.2-2.0 [facility] Comment on above: Performed By: #### E RUR #### [facility] [address] [place] [address] Dr. Helio Cee EO # 0.4 103/ul Normal 0.0-0.7 [facility] Comment on above: Performed By: #### E RUR #### [facility] [address] [place] [address] Dr. Helio Cee Eosinophils/100 WBC (Bld) 4.0 % Normal 0.9-7.0 [facility] Comment on above: Performed By: #### E RUR #### [facility] [address] [place] [address] Dr. Helio Cee Erythrocyte distribution width (RBC) [Ratio] 15.2 % Critically high 11.0-15.0 [facility] Comment on above: Performed By: #### E RUR #### [facility] [address] [place] [address] Dr. Helio Cee Hematocrit (Bld) [Volume fraction] 41.0 % Normal 36.0-48.0 [facility] Comment on above: Performed By: #### E RUR #### [facility] [address] [place] [address] Dr. Helio Cee Hemoglobin (Bld) [Mass/Vol] 12.9 g/dL Normal 12.0-16.0 [facility] Comment on above: Performed By: #### E RUR #### [facility] [address] [place] [address] Dr. Helio Cee IG # 0.04 10e3/ul Critically high 0.00-0.03 [facility] Comment on above: Performed By: #### E RUR #### [facility] [address] [address] [address] Helio Cee IG % 0.4 % Normal 0.0-0.5 [facility] Comment on above: Performed By: #### E RUR #### [facility] [address] [place] [address] Dr. Helio Cee LYMPH # 1.1 103/ul Critically low 1.2-3.8 [facility] Comment on above: Performed By: #### E RUR #### [facility] [address] [place] [address] Dr. Helio Cee Lymphocytes/100 WBC (Bld) 11.9 % Critically low 20.5-60.0 [facility] Comment on above: Performed By: #### E RUR #### [facility] [address] [place] [address] Dr. Helio Cee MANUAL DIFF REQ NO Normal [facility] Comment on above: Performed By: #### E RUR #### [facility] [address] [place] [address] Dr. Helio Cee MCH (RBC) [Entitic mass] 29.0 pg Normal 26.7-34.0 [facility] Comment on above: Performed By: #### E RUR #### [facility] [address] [place] [address] Dr. Helio Cee MCHC (RBC) [Mass/Vol] 31.5 g/dL Normal 29.9-35.2 [facility] Comment on above: Performed By: #### E RUR #### [facility] [address] [place] [address] Dr. Helio Cee MCV (RBC) [Entitic vol] 92.1 fL Normal 81.0-99.0 [facility] Comment on above: Performed By: #### E RUR #### [facility] [address] [place] [address] Dr. Helio Cee MONO # 0.4 103/ul Normal 0.3-0.8 [facility] Comment on above: Performed By: #### E RUR #### [facility] [address] [address] [address] Helio Cee Monocytes/100 WBC (Bld) 4.4 % Normal 1.7-12.0 [facility] Comment on above: Performed By: #### E RUR #### [facility] [address] [place] [address] Dr. Helio Cee NEUT # 7.3 103/ul Critically high 1.4-6.5 [facility] Comment on above: Performed By: #### E RUR #### [facility] [address] [place] [address] Dr. Helio Cee Neutrophils/100 WBC (Bld) 78.9 % Critically high 43.0-75.0 [facility] Comment on above: Performed By: #### E RUR #### [facility] [address] [place] [address] Dr. Helio Cee Platelet mean volume (Bld) [Entitic vol] 10.6 fL Normal 9.5-13.5 [facility] Comment on above: Performed By: #### E RUR #### [facility] [address] [place] [address] Dr. Helio Cee PLT 269 103/ul Normal 150-450 [facility] Comment on above: Performed By: #### E RUR #### [facility] [address] [place] [address] Dr. Helio Cee RBC 4.45 106/ul Normal 4.20-5.40 [facility] Comment on above: Performed By: #### E RUR #### [facility] [address] [place] [address] Dr. Helio Cee WBC 9.2 103/ul Normal 4.0-11.0 [facility] Comment on above: Performed By: #### E RUR #### [facility] [address] [place] [address] Dr. Helio Cee LIPID PROFILEon 04-21-2022 CHOL-HDL RATIO NORM SEE BELOW Normal [facility] Comment on above: Result Comment: 3.3 - 4.4 LOW RISK 4.4 - 7.1 AVERAGE RISK 7.1 - 11.0 MODERATE RISK >11.0 HIGH RISK Performed By: #### T SH, LIPID, CMP ####[facility] [id number]. Helio Cee Cholesterol [Mass/Vol] 146 mg/dL Normal <=200 Th [facility] Comment on above: Performed By: #### T SH, LIPID, CMP ####[facility] [address]Dr. Helio Cee Cholesterol in HDL [Mass/Vol] 63 mg/dL Critically high 40-60 [facility] Comment on above: Performed By: #### T SH, LIPID, CMP ####[facility] [address] [address]Dr. Helio Cee Cholesterol in LDL [Mass/Vol] 66.6 mg/dL Normal [facility] Comment on above: Performed By: #### T SH, LIPID, CMP ####[facility] [address] [place], [place] [address]Dr. Helio Cee Cholesterol.total/Lisa sterol in HDL [Mass ratio] 2.3 {ratio} Normal [facility] Comment on above: Performed By: #### T SH, LIPID, CMP ####[facility] [address] [address]Dr. Claudettelan Cee HDL NORMAL > or = 60 mg/dl - LOW CARDIOVASCULAR RISK <40 mg/dl - HIGH CARDIOVASCULAR RISK Normal [facility] Comment on above: Performed By: #### T SH, LIPID, CMP ####[facility] [address] [address]Dr. Claudettelan Cee LDL CALC NORMAL SEE BELOW Normal [facility] Comment on above: Result Comment: <100 mg/dl OPTIMAL 100 - 129 mg/dl NEAR OR ABOVE OPTIMAL 130 - 159 mg/dl BORDERLINE HIGH 160 - 189 mg/dl HIGH >190 mg/dl VERY HIGH Performed By: #### T SH, LIPID, CMP ####[facility] [address] [id number]. Helio Cee Triglyceride [Mass/Vol] 82 mg/dL Normal <=150 T [facility] Comment on above: Performed By: #### T SH, LIPID, CMP ####[facility] [address] [address]Dr. Helio Cee VLDL CALC 16.4 mg/dL Normal [facility] Comment on above: Performed By: #### T SH, LIPID, CMP ####[facility] [address] [address]Dr. Helio Cee PROF 14(COMP METB)on 022 Albumin [Mass/Vol] 3.5 g/dL Normal 3.4-5.[address] [facility] Comment on above: Performed By: #### T SH, LIPID, CMP ####[facility] [address] [address]Dr. Helio Cee Albumin/Globulin [Mass ratio] 1.0 {ratio} Normal [facility] Comment on above: Performed By: #### T CAITLIN, LIPID, CMP ####[facility] [address] [place], [place] [address]Dr. Helio Cee ALP [Catalytic activity/Vol] 98 U/L Normal 46-116 [facility] Comment on above: Performed By: #### T CAITLIN, LIPID, CMP ####[facility] [address] [address]Dr. Helio Cee ALT [Catalytic activity/Vol] 23 U/L Normal 14-59 [facility] Comment on above: Performed By: #### T CAITLIN, LIPID, CMP ####[facility] [address] [address]Dr. Helio Cee Anion gap [Moles/Vol] 12.2 mmol/L Normal [facility] Comment on above: Performed By: #### T SH, LIPID, CMP ####[facility] [address] [address]Dr. Helio Cee AST [Catalytic activity/Vol] 15 U/L Normal 15-37 [facility] Comment on above: Performed By: #### T SH, LIPID, CMP ####[facility] [address] [address]Dr. Helio Cee Bilirubin [Mass/Vol] 0.5 mg/dL Normal 0.2-1.0 [facility] Comment on above: Performed By: #### T SH, LIPID, CMP ####[facility] [address] [address]Dr. Helio Cee Calcium [Mass/Vol] 9.0 mg/dL Normal 8.5-10.[address] [facility] Comment on above: Performed By: #### T SH, LIPID, CMP ####[facility] [address] [address]Dr. Helio Cee Chloride [Moles/Vol] 109 mmol/L Critically high 98-107 [facility] Comment on above: Performed By: #### T SH, LIPID, CMP ####[facility] [address] [place], [place] [address]Dr. Helio Cee CO2 [Moles/Vol] 26.5 mmol/L Normal 21.0-32.0 [facility] Comment on above: Performed By: #### T SH, LIPID, CMP ####[facility] [address] [place], [place] [address]Dr. Helio Cee Creatinine [Mass/Vol] 1.22 mg/dL Critically high 0.55-1.02 [facility] Comment on above: Performed By: #### T SH, LIPID, CMP ####[facility] [address] [place], [place] [address]Dr. Helio Cee EGFR-AF ETHIOPIAN 52 mL/min/1.73m2 Critically low >=60 [facility] Comment on above: Performed By: #### T SH, LIPID, CMP ####[facility] [address] [place] [address]Dr. Helio Cee EGFR-NON AF ETHIOPIAN 43 mL/min/1.73m2 Critically low >=60 [facility] Comment on above: Performed By: #### T SH, LIPID, CMP ####[facility] [id number] [place] [address]Dr. Helio Cee Globulin (S) [Mass/Vol] 3.4 g/dL Normal T [facility] Comment on above: Performed By: #### T SH, LIPID, CMP ####[facility] [address] [place] [address]Dr. Helio Cee Glucose [Mass/Vol] 103 mg/dL Normal 74-106 [facility] Comment on above: Performed By: #### T SH, LIPID, CMP ####[facility] [address] [place] [address]Dr. Helio Cee Potassium [Moles/Vol] 4.7 mmol/L Normal 3.5-5.1 [facility] Comment on above: Performed By: #### T SH, LIPID, CMP ####[facility] [id number] [place] [address]Dr. Helio Cee Protein [Mass/Vol] 6.9 g/dL Normal 6.4-8.2 [facility] Comment on above: Performed By: #### T CAITLIN, LIPID, CMP ####[facility] [address] [place], [place] [address]Dr. Helio Cee Sodium [Moles/Vol] 143 mmol/L Normal 136-145 [facility] Comment on above: Performed By: #### T CAITLIN, LIPID, CMP ####[facility] [address] [place] [address]Dr. Helio Cee Urea nitrogen [Mass/Vol] 22.0 mg/dL Critically high 7.0-18.0 [facility] Comment on above: Performed By: #### T CAITLIN, LIPID, CMP ####[facility] [address] [place] [address]Dr. Helio Cee Urea nitrogen/Creatinine [Mass ratio] 18.0 mg/mg Normal [facility] Comment on above: Performed By: #### T CAITLIN, LIPID, CMP ####[facility] [address] [place] [address]Dr. Helio Cee TSHon 04-21-2022 TSH 0.592 uIU/mL Normal 0.358-3.740 [facility] Comment on above: Performed By: #### T SH, LIPID, CMP ####[facility] [address] [place], [place] [address]Dr. Helio Cee UA RANDOM W/MICROSCOPICon BACTERIA NONE SEEN Normal NONE SEEN The [facility] Comment on above: Performed By: #### U AMIC ####[facility] [address] [place] [address]Dr. Helio Cee Bilirubin Ql (U) Negative Normal NEGATIVE The [facility] Comment on above: Performed By: #### U AMIC ####[facility] [address] [place] [address]Dr. Helio Cee CAST NONE SEEN Normal NONE SEEN The [facility] Comment on above: Performed By: #### U AMIC ####[facility] [address] [place], [place] [address]Dr. Helio Cee Clarity (U) CLEAR Normal CLEAR The [facility] Comment on above: Performed By: #### U AMIC ####[facility] [address] [place] [address]Dr. Helio Cee Color (U) DK. YELLOW Normal YELLOW The [facility] Comment on above: Performed By: #### U AMIC ####[facility] N[address] [place], [place] [address]Dr. Helio Cee Crystals LM Nom (Urine sed) NONE SEEN Normal NONE SEEN The [facility] Comment on above: Performed By: #### U AMIC ####[facility] [address] [place], [place] [address]Dr. Helio Cee Epithelial cells LM Ql (Urine sed) RARE Normal NONE SEEN /RARE The [facility] Comment on above: Performed By: #### U AMIC ####[facility] Am[address] [place], [place] [address]Dr. Helio Cee Glucose Ql (U) Negative Normal NEGATIVE [facility] Comment on above: Performed By: #### U AMIC ####[facility] Wh[address] [place], [place] [address]Dr. Helio Cee Hemoglobin Ql (U) Negative Normal NEGATIVE The [facility] Comment on above: Performed By: #### U AMIC ####[facility] [address] [place], [place] [address]Dr. Helio Cee Ketones Ql (U) Negative Normal NEGATIVE [facility] Comment on above: Performed By: #### U AMIC ####[facility] [address] [place] [address]Dr. Helio Cee LEUKOCYTES Negative Normal NEGATIVE The [facility] Comment on above: Performed By: #### U AMIC ####[facility] [address] [place] [address]Dr. Helio Cee MUCOUS TRACE Abnormal NONE SEEN The [facility] Comment on above: Performed By: #### U AMIC ####[facility] [address] [place] [address]Dr. Helio Cee Nitrite Ql (U) Negative Normal NEGATIVE [facility] Comment on above: Performed By: #### U AMIC ####[facility] [address] [place] [address]Dr. Helio Cee pH (U) 5.5 [pH] Normal 5-9 [facility] Comment on above: Performed By: #### U AMIC ####[facility] Y[address]fr[address] [place], [place] [address]Dr. Helio Cee RBC 0-2 Normal 0-2 [facility] Comment on above: Performed By: #### U AMIC ####[facility] Y[address] [place], [place] [address]Dr. Helio Cee SPEC GRAVITY >=1.030 Abnormal 1.005-<=1.02 5 [facility] Comment on above: Performed By: #### U AMIC ####[facility] [address] [place], [place] [address]Dr. Helio Cee UA PROTEIN TRACE Normal NEGATIVE/ TRACE The [facility] Comment on above: Performed By: #### U AMIC ####[facility] [address] [place], [place] [address]Dr. Helio Cee Urobilinogen Qn (U) 1.0 {Nevaeh'U}/dL Normal 0.2 - 1. 0 [facility] Comment on above: Performed By: #### U AMIC ####[facility] [address] [place], [place] [address]Dr. Helio Cee WBC NONE SEEN Normal NONE SEEN The [facility] Comment on above: Performed By: #### U AMIC ####[facility] [address] [place], [place] [address]Dr. Helio Cee CT CHEST WO CONon 02-22-2022 [...] Date: 2022-02-22 16:51 Normal The [facility] HEMOGLOBINon 02-22-2022 Hemoglobin (Bld) [Mass/Vol] 13.6 g/dL Normal 12.0-16.0 [facility] Comment on above: Performed By: #### V [id number] #### [facility] [address] [place], [place] [address] Dr. Helio Cee XR TIB_FIB RT 2Von [...] Date: 2022-01-07 21:52 Normal The [facility] BNPon 11-22-2021 Natriuretic peptide B (Bld) [Mass/Vol] 1469.0 pg/mL Critically high <=900.0 [facility] Comment on above: Performed By: #### C VDTB #### [facility] [address] [place] [address] Dr. Helio Cee CBC AUTO DIFFon 11-22-2021 BASO # 0.1 103/ul Normal 0.0-0.1 [facility] Comment on above: Performed By: #### E RUR #### [facility] [address] [place] [address] Dr. Helio Cee Basophils/100 WBC (Bld) 0.7 % Normal 0.2-2.0 [facility] Comment on above: Performed By: #### E RUR #### [facility] [address] [place] [address] Dr. Helio Cee EO # 0.2 103/ul Normal 0.0-0.7 [facility] Comment on above: Performed By: #### E RUR #### [facility] [address] [place] [address] Dr. Helio Cee Eosinophils/100 WBC (Bld) 1.9 % Normal 0.9-7.0 [facility] Comment on above: Performed By: #### E RUR #### [facility] [address] [place] [address] Dr. Helio Cee Erythrocyte distribution width (RBC) [Ratio] 14.3 % Normal 11.0-15.0 [facility] Comment on above: Performed By: #### E RUR #### [facility] [address] [place] [address] Dr. Helio Cee Hematocrit (Bld) [Volume fraction] 37.9 % Normal 36.0-48.0 [facility] Comment on above: Performed By: #### E RUR #### [facility] [address] [place], [place] [address] Dr. Helio Cee Hemoglobin (Bld) [Mass/Vol] 12.0 g/dL Normal 12.0-16.0 [facility] Comment on above: Performed By: #### E RUR #### [facility] [address] [place] [address] Dr. Helio Cee IG # 0.10 10e3/ul Critically high 0.00-0.03 [facility] Comment on above: Performed By: #### E RUR #### [facility] [address] [place] [address] Dr. Helio Cee IG % 1.1 % Critically high 0.0-0.5 [facility] Comment on above: Performed By: #### E RUR #### [facility] [address] [place] [address] Dr. Helio Cee LYMPH # 0.9 103/ul Critically low 1.2-3.8 [facility] Comment on above: Performed By: #### E RUR #### [facility] [address] [place] [address] Dr. Heloi Cee Lymphocytes/100 WBC (Bld) 10.1 % Critically low 20.5-60.0 [facility] Comment on above: Performed By: #### E RUR #### [facility] [address] [place] [address] Dr. Helio Cee MANUAL DIFF REQ NO Normal [facility] Comment on above: Performed By: #### E RUR #### [facility] [address] [place] [address] Dr. Helio Cee MCH (RBC) [Entitic mass] 29.8 pg Normal 26.7-34.0 [facility] Comment on above: Performed By: #### E RUR #### [facility] [address] [place] [address] Dr. Helio Cee MCHC (RBC) [Mass/Vol] 31.7 g/dL Normal 29.9-35.2 [facility] Comment on above: Performed By: #### E RUR #### [facility] [address] [place] [address] [address] Helio Cee MCV (RBC) [Entitic vol] 94.0 fL Normal 81.0-99.0 [facility] Comment on above: Performed By: #### E RUR #### [facility] [address] [place] [address] Dr. Helio Cee MONO # 0.7 103/ul Normal 0.3-0.8 [facility] Comment on above: Performed By: #### E RUR #### [facility] [address] [place] [address] Dr. Helio Cee Monocytes/100 WBC (Bld) 7.8 % Normal 1.7-12.0 [facility] Comment on above: Performed By: #### E RUR #### [facility] [address] [place] [address] Dr. Helio Cee NEUT # 7.2 103/ul Critically high 1.4-6.5 [facility] Comment on above: Performed By: #### E RUR #### [facility] [address] [place] [address] Dr. Helio Cee Neutrophils/100 WBC (Bld) 78.4 % Critically high 43.0-75.0 [facility] Comment on above: Performed By: #### E RUR #### [facility] [address] [place] [address] Dr. Helio Cee Platelet mean volume (Bld) [Entitic vol] 10.6 fL Normal 9.5-13.5 [facility] Comment on above: Performed By: #### E RUR #### [facility] [address] [place] [address] Dr. Helio Cee PLT 278 103/ul Normal 150-450 [facility] Comment on above: Performed By: #### E RUR #### [facility] [address] [place] [address] Dr. Helio Cee RBC 4.03 106/ul Critically low 4.20-5.40 [facility] Comment on above: Performed By: #### E RUR #### [facility] [address] [place] [address] [address] [address] Helio Cee WBC 9.1 103/ul Normal 4.0-11.0 [facility] Comment on above: Performed By: #### E RUR #### [facility] [address] [place], [place] [address] Dr. Helio Cee CTA CHEST WO W CONon 07-12-2 022 CTA CHEST WO W CON CT [...] Jay BARAHONA Date: 2021-11-22 16:47 Normal [facility] CULTURE BLOODon 11-22-2021 Microscopic examination of blood, culture Culture Observations: NO GROWTH AT 5 DAYS. Normal [facility] Comment on above: Performed By: #### B [id number] ####[facility] [address] [place], [place] [address]HmDr. Helio Cee Microscopic examination of blood, culture Culture Observations: NO GROWTH AT 5 DAYS. Normal [facility] Comment on above: Performed By: #### B [id number] #### [facility] [address] [place] [address] [address] Helio Cee Covid-19 PCR ([facility])on 11-11 SARS-CoV-2 (COVID-19) RNA KIMMY+probe Ql (Unsp spec) Not detected Normal NOT DETECTED [facility] Comment on above: Result Comment: When diagnostic [...] for this test is supported by the [employer] and Human Service's declaration that [...] By: #### C VDTBH #### [facility] [address] [place], [place] [address] Dr. Helio Cee LACTATE/LACTIC ACIDon 2021 Lactate [Moles/Vol] mmol/L Critically low 0.4-1.9 T [facility] Comment on above: Performed By: #### L ACT ####[facility] [address] [place] [address]Dr. Helio Cee PROF 14(COMP METB)on 022 Albumin [Mass/Vol] 3.1 g/dL Critically low 3.4-5.[address] [facility] Comment on above: Performed By: #### V [id number] #### [facility] [address] [place] [address] [address] Helio Cee Albumin/Globulin [Mass ratio] 0.8 {ratio} Normal [facility] Comment on above: Performed By: #### V [id number] #### [facility] [address] [place] [address] [address] Helio Cee ALP [Catalytic activity/Vol] 92 U/L Normal 46-116 [facility] Comment on above: Performed By: #### V [id number] #### [facility] [address] [place] [address] Dr. Helio Cee ALT [Catalytic activity/Vol] 23 U/L Normal 14-59 [facility] Comment on above: Performed By: #### V [id number] #### [facility] [address] [place] [address] Dr. Helio Cee Anion gap [Moles/Vol] 12.8 mmol/L Normal [facility] Comment on above: Performed By: #### V [id number] #### [facility] [address] [place] [address] Dr. Helio Cee AST [Catalytic activity/Vol] 16 U/L Normal 15-37 [facility] Comment on above: Performed By: #### V [id number] #### [facility] [address] [place] [address] Dr. Helio Cee Bilirubin [Mass/Vol] 0.6 mg/dL Normal 0.2-1.0 [facility] Comment on above: Performed By: #### V [id number] #### [facility] [address] [place] [address] Dr. Helio Cee Calcium [Mass/Vol] 9.5 mg/dL Normal 8.5-10.[address] [facility] Comment on above: Performed By: #### V [id number] #### [facility] [address] [place] [address] [address] Helio Cee Chloride [Moles/Vol] 106 mmol/L Normal 98-107 [facility] Comment on above: Performed By: #### V [id number] #### [facility] [address] [place] [address] [address] Helio Cee CO2 [Moles/Vol] 25.1 mmol/L Normal 21.0-32.0 [facility] Comment on above: Performed By: #### V [id number] #### [facility] [address] [place] [address] [address] Helio Cee Creatinine [Mass/Vol] 1.06 mg/dL Critically high 0.55-1.02 [facility] Comment on above: Performed By: #### V [id number] #### [facility] [address] [place] [address] [address] Helio Cee EGFR-AF ETHIOPIAN >60 Normal >=60 [facility] Comment on above: Performed By: #### V [id number] #### [facility] [address] [place] [address] [address] Helio Cee EGFR-NON AF ETHIOPIAN 51 mL/min/1.73m2 Critically low >=60 [facility] Comment on above: Performed By: #### V [id number] #### [facility] [address] [place] [address] [address] Helio Cee Globulin (S) [Mass/Vol] 4.1 g/dL Normal T [facility] Comment on above: Performed By: #### V [id number] #### [facility] [address] [address] [address] Helio Cee Glucose [Mass/Vol] 99 mg/dL Normal 74-[address] [facility] Comment on above: Performed By: #### V [id number] #### [facility] [address] [place] [address] [address] Helio Cee Potassium [Moles/Vol] 3.9 mmol/L Normal 3.5-5.1 [facility] Comment on above: Performed By: #### V [id number] #### [facility] [address] [place] [address] [address] Heilo Cee Protein [Mass/Vol] 7.2 g/dL Normal 6.4-8.2 [facility] Comment on above: Performed By: #### V [id number] #### [facility] [address] [place] [address] Dr. Helio Cee Sodium [Moles/Vol] 140 mmol/L Normal 136-145 [facility] Comment on above: Performed By: #### V [id number] #### [facility] [address] [place] [address] Dr. Helio Cee Urea nitrogen [Mass/Vol] 15.0 mg/dL Normal 7.0-18.0 [facility] Comment on above: Performed By: #### V [id number] #### [facility] [address] [place] [address] Dr. Helio Cee Urea nitrogen/Creatinine [Mass ratio] 14.2 mg/mg Normal [facility] Comment on above: Performed By: #### V [id number] #### [facility] [address] [place] [address] Dr. Helio Cee TROPONIN, HIGH SENSITIVITYon 11-22-2021 HSTROP 11.6 pg/mL Normal 4.0-51.3 [facility] Comment on above: Result Comment: CUT- OFF POINTS HAVE BEEN ESTABLISHED BASED ON THE FOURTH UNIVERSAL DEFINITIONS OF MYOCARDIAL INFARCTION. THE UPPER REFERENCE LIMIT (URL) OF TROPONIN, DEFINED THE 99TH PERCENTILE OF cTnI DISTRIBUTION IN A REFERENCE POPULATION, HAS BEEN CONFIRMED THE DECISION THRESHOLD FOR [place] DIAGNOSIS. Performed By: #### V [id number] #### [facility] [address] [place] [address] Dr. Helio Cee XR CHEST 2 Von [...] ISAC CONNOR Date: 2021-11-22 14:20 Normal [facility] BNPon 11-21-2021 Natriuretic peptide B (Bld) [Mass/Vol] 953.0 pg/mL Critically high <=900.0 [facility] Comment on above: Performed By: #### E RUR #### [facility] [address] [place] [address] Dr. Helio Cee CBC AUTO DIFFon 11-21-2021 BASO # 0.0 103/ul Normal 0.0-0.1 [facility] Comment on above: Performed By: #### E RUR #### [facility] [address] [place] [address] Dr. Helio Cee Basophils/100 WBC (Bld) 0.4 % Normal 0.2-2.0 [facility] Comment on above: Performed By: #### E RUR #### [facility] [address] [place] [address] Dr. Helio Cee EO # 0.1 103/ul Normal 0.0-0.7 [facility] Comment on above: Performed By: #### E RUR #### [facility] [address] [place] [address] Dr. Helio Cee Eosinophils/100 WBC (Bld) 1.1 % Normal 0.9-7.0 [facility] Comment on above: Performed By: #### E RUR #### [facility] [address] [place] [address] Dr. Helio Cee Erythrocyte distribution width (RBC) [Ratio] 14.6 % Normal 11.0-15.0 [facility] Comment on above: Performed By: #### E RUR #### [facility] [address] [place] [address] Dr. Helio Cee Hematocrit (Bld) [Volume fraction] 35.2 % Critically low 36.0-48.0 [facility] Comment on above: Performed By: #### E RUR #### [facility] [address] [place] [address] Dr. Helio Cee Hemoglobin (Bld) [Mass/Vol] 10.9 g/dL Critically low 12.0-16.0 [facility] Comment on above: Performed By: #### E RUR #### [facility] [address] [place] [address] [address] Helio Cee IG # 0.07 10e3/ul Critically high 0.00-0.03 [facility] Comment on above: Performed By: #### E RUR #### [facility] [address] [place] [address] [address] Helio Cee IG % 0.7 % Critically high 0.0-0.5 [facility] Comment on above: Performed By: #### E RUR #### [facility] [address] [place] [address] Dr. Helio Cee LYMPH # 1.4 103/ul Normal 1.2-3.8 [facility] Comment on above: Performed By: #### E RUR #### [facility] [address] [address] [address] Helio Cee Lymphocytes/100 WBC (Bld) 13.3 % Critically low 20.5-60.0 [facility] Comment on above: Performed By: #### E RUR #### [facility] [address] [place] [address] Dr. Helio Cee MANUAL DIFF REQ NO Normal [facility] Comment on above: Performed By: #### E RUR #### [facility] [address] [address] [address] Helio Cee MCH (RBC) [Entitic mass] 29.5 pg Normal 26.7-34.0 [facility] Comment on above: Performed By: #### E RUR #### [facility] [address] [place] [address] [address] Helio Cee MCHC (RBC) [Mass/Vol] 31.0 g/dL Normal 29.9-35.2 [facility] Comment on above: Performed By: #### E RUR #### [facility] [address] [address] [address] Helio Cee MCV (RBC) [Entitic vol] 95.4 fL Normal 81.0-99.0 [facility] Comment on above: Performed By: #### E RUR #### [facility] [address] [place] [address] Dr. Helio Cee MONO # 0.8 103/ul Normal 0.3-0.8 [facility] Comment on above: Performed By: #### E RUR #### [facility] [address] [place] [address] Dr. Helio Cee Monocytes/100 WBC (Bld) 7.3 % Normal 1.7-12.0 [facility] Comment on above: Performed By: #### E RUR #### [facility] [address] [place] [address] Dr. Helio Cee NEUT # 7.9 103/ul Critically high 1.4-6.5 [facility] Comment on above: Performed By: #### E RUR #### [facility] Laboratory [address] [place] [address] Dr. Helio Cee Neutrophils/100 WBC (Bld) 77.2 % Critically high 43.0-75.0 [facility] Comment on above: Performed By: #### E RUR #### [facility] Laboratory [address] [place] [address] Dr. Helio Cee Platelet mean volume (Bld) [Entitic vol] 11.1 fL Normal 9.5-13.5 [facility] Comment on above: Performed By: #### E RUR #### [facility] Laboratory [address] [place] [address] Dr. Helio Cee PLT 245 103/ul Normal 150-450 [facility] Comment on above: Performed By: #### E RUR #### [facility] Laboratory [address] [place] [address] Dr. Helio Cee RBC 3.69 106/ul Critically low 4.20-5.40 [facility] Comment on above: Performed By: #### E RUR #### [facility] Laboratory [address] [place] [address] Dr. Helio Cee WBC 10.2 103/ul Normal 4.0-11.0 [facility] Comment on above: Performed By: #### E RUR #### [facility] Laboratory [address] [address] [address] Helio Cee PROF 14(COMP METB)on 022 Albumin [Mass/Vol] 2.6 g/dL Critically low 3.4-5.[address] [facility] Comment on above: Performed By: #### V [id number] #### [facility] Laboratory [address] [address] [address] Helio Cee Albumin/Globulin [Mass ratio] 0.7 {ratio} Normal [facility] Comment on above: Performed By: #### V [id number] #### [facility] Laboratory [address] [place] [address] Dr. Helio Cee ALP [Catalytic activity/Vol] 75 U/L Normal 46-116 [facility] Comment on above: Performed By: #### V [id number] #### [facility] Laboratory [address] [place] [address] Dr. Helio Cee ALT [Catalytic activity/Vol] 19 U/L Normal 14-59 [facility] Comment on above: Performed By: #### V [id number] #### [facility] Laboratory [address] [place] [address] Dr. Helio Cee Anion gap [Moles/Vol] 11.7 mmol/L Normal [facility] Comment on above: Performed By: #### V [id number] #### [facility] Laboratory [address] [place] [address] Dr. Helio Cee AST [Catalytic activity/Vol] 8 U/L Critically low 15-37 [facility] Comment on above: Performed By: #### V [id number] #### [facility] Laboratory [address] [place] [address] Dr. Helio Cee Bilirubin [Mass/Vol] 0.3 mg/dL Normal 0.2-1.0 [facility] Comment on above: Performed By: #### V [id number] #### [facility] Laboratory [address] [place] [address] Dr. Helio Cee Calcium [Mass/Vol] 9.0 mg/dL Normal 8.5-10.[address] [facility] Comment on above: Performed By: #### V [id number] #### [facility] [address] [address] [address] Helio Cee Chloride [Moles/Vol] 107 mmol/L Normal 98-107 [facility] Comment on above: Performed By: #### V [id number] #### [facility] [address] [address] [address] Helio Cee CO2 [Moles/Vol] 24.7 mmol/L Normal 21.0-32.0 [facility] Comment on above: Performed By: #### V [id number] #### [facility] Laboratory [address] [place] [address] Dr. Helio Cee Creatinine [Mass/Vol] 0.91 mg/dL Normal 0.55-1.02 [facility] Comment on above: Performed By: #### V [id number] #### [facility] [address] [place] [address] Dr. Helio Cee EGFR-AF ETHIOPIAN >60 Normal >=60 [facility] Comment on above: Performed By: #### V [id number] #### [facility] Laboratory [address] [place] [address] Dr. eHlio Cee EGFR-NON AF ETHIOPIAN 60 mL/min/1.73m2 Normal >=60 [facility] Comment on above: Performed By: #### V [id number] #### [facility] [address] [place] [address] Dr. Helio Cee Globulin (S) [Mass/Vol] 3.9 g/dL Normal [facility] Comment on above: Performed By: #### V [id number] #### [facility] [address] [place] [address] Dr. Helio Cee Glucose [Mass/Vol] 131 mg/dL Critically high 74-106 [facility] Comment on above: Performed By: #### V [id number] #### [facility] [address] [place] [address] Dr. Helio Cee Potassium [Moles/Vol] 3.4 mmol/L Critically low 3.5-5.1 [facility] Comment on above: Performed By: #### V [id number] #### [facility] [address] [place] [address] Dr. Helio Cee Protein [Mass/Vol] 6.5 g/dL Normal 6.4-8.[address] [facility] Comment on above: Performed By: #### V [id number] #### [facility] [address] [place] [address] Dr. Helio Cee Sodium [Moles/Vol] 140 mmol/L Normal 136-[address] [facility] Comment on above: Performed By: #### V [id number] #### [facility] [address] [place] [address] Dr. Helio Cee Urea nitrogen [Mass/Vol] 14.0 mg/dL Normal 7.0-18.0 [facility] Comment on above: Performed By: #### V [id number] #### [facility] [address] [place] [address] Dr. Helio Cee Urea nitrogen/Creatinine [Mass ratio] 15.4 mg/mg Normal [facility] Comment on above: Performed By: #### V [id number] #### [facility] [address] [place] [address] Dr. Helio Cee BNPon 11-20-2021 Natriuretic peptide B (Bld) [Mass/Vol] 781.0 pg/mL Normal <=900.0 [facility] Comment on above: Performed By: #### E RUR #### [facility] [address] [place] [address] Dr. Helio Cee CBC AUTO DIFFon 11-20-2021 BASO # 0.0 103/ul Normal 0.0-0.1 [facility] Comment on above: Performed By: #### V [id number] #### [facility] [address] [place] [address] Dr. Helio Cee Basophils/100 WBC (Bld) 0.3 % Normal 0.2-2.0 [facility] Comment on above: Performed By: #### V [id number] #### [facility] [address] [place] [address] Dr. Heloi Cee EO # 0.1 103/ul Normal 0.0-0.7 [facility] Comment on above: Performed By: #### V [id number] #### [facility] [address] [place] [address] Dr. Helio Cee Eosinophils/100 WBC (Bld) 0.5 % Critically low 0.9-7.0 [facility] Comment on above: Performed By: #### V [id number] #### [facility] [address] [place] [address] Dr. Helio Cee Erythrocyte distribution width (RBC) [Ratio] 14.5 % Normal 11.0-15.0 [facility] Comment on above: Performed By: #### V [id number] #### [facility] [address] [place] [address] Dr. Helio Cee Hematocrit (Bld) [Volume fraction] 36.6 % Normal 36.0-48.0 [facility] Comment on above: Performed By: #### V [id number] #### [facility] [address] [place] [address] Dr. Helio Cee Hemoglobin (Bld) [Mass/Vol] 11.5 g/dL Critically low 12.0-16.0 [facility] Comment on above: Performed By: #### V [id number] #### [facility] [address] [place] [address] Dr. Helio Cee IG # 0.07 10e3/ul Critically high 0.00-0.03 [facility] Comment on above: Performed By: #### V [id number] #### [facility] [address] [place] [address] Dr. Helio Cee IG % 0.5 % Normal 0.0-0.5 [facility] Comment on above: Performed By: #### V [id number] #### [facility] [address] [place] [address] Dr. Helio Cee LYMPH # 1.2 103/ul Normal 1.2-3.8 [facility] Comment on above: Performed By: #### V [id number] #### [facility] [address] [place] [address] Dr. Helio Cee Lymphocytes/100 WBC (Bld) 9.5 % Critically low 20.5-60.0 [facility] Comment on above: Performed By: #### V [id number] #### [facility] [address] [place] [address] Dr. Helio Cee MANUAL DIFF REQ NO Normal [facility] Comment on above: Performed By: #### V [id number] #### [facility] [address] [place] [address] Dr. Helio Cee MCH (RBC) [Entitic mass] 30.2 pg Normal 26.7-34.0 [facility] Comment on above: Performed By: #### V [id number] #### [facility] [address] [place] [address] Dr. Helio Cee MCHC (RBC) [Mass/Vol] 31.4 g/dL Normal 29.9-35.2 [facility] Comment on above: Performed By: #### V [id number] #### [facility] [address] [place] [address] Dr. Helio Cee MCV (RBC) [Entitic vol] 96.1 fL Normal 81.0-99.0 [facility] Comment on above: Performed By: #### V [id number] #### [facility] [address] [place] [address] Dr. Helio Cee MONO # 0.7 103/ul Normal 0.3-0.8 [facility] Comment on above: Performed By: #### V [id number] #### [facility] [address] [place] [address] Dr. Helio Cee Monocytes/100 WBC (Bld) 5.7 % Normal 1.7-12.0 [facility] Comment on above: Performed By: #### V [id number] #### [facility] [address] [place] [address] Dr. Helio Cee NEUT # 10.8 103/ul Critically high 1.4-6.5 [facility] Comment on above: Performed By: #### V [id number] #### [facility] [address] [address] [address] Helio Cee Neutrophils/100 WBC (Bld) 83.5 % Critically high 43.0-75.0 [facility] Comment on above: Performed By: #### V [id number] #### [facility] [address] [address] [address] Helio Cee Platelet mean volume (Bld) [Entitic vol] 11.1 fL Normal 9.5-13.5 [facility] Comment on above: Performed By: #### V [id number] #### [facility] [address] [address] [address] Helio Cee PLT 231 103/ul Normal 150-450 [facility] Comment on above: Performed By: #### V [id number] #### [facility] [address] [place] [address] Dr. Helio Cee RBC 3.81 106/ul Critically low 4.20-5.40 [facility] Comment on above: Performed By: #### V [id number] #### [facility] [address] [place] [address] Dr. Helio Cee WBC 13.0 103/ul Critically high 4.0-11.0 [facility] Comment on above: Performed By: #### V [id number] #### [facility] [address] [place] [address] Dr. Helio Cee PROF 14(COMP METB)on 022 Albumin [Mass/Vol] 2.9 g/dL Critically low 3.4-5.[address] [facility] Comment on above: Performed By: #### E RUR #### [facility] [address] [place] [address] Dr. Helio Cee Albumin/Globulin [Mass ratio] 0.8 {ratio} Normal [facility] Comment on above: Performed By: #### E RUR #### [facility] [address] [place] [address] Dr. Helio Cee ALP [Catalytic activity/Vol] 81 U/L Normal 46-116 [facility] Comment on above: Performed By: #### E RUR #### [facility] [address] [address] [address] Helio Cee ALT [Catalytic activity/Vol] 21 U/L Normal 14-59 [facility] Comment on above: Performed By: #### E RUR #### [facility] [address] [address] [address] Helio Cee Anion gap [Moles/Vol] 12.4 mmol/L Normal [facility] Comment on above: Performed By: #### E RUR #### [facility] [address] [address] [address] Helio Cee AST [Catalytic activity/Vol] 11 U/L Critically low 15-37 [facility] Comment on above: Performed By: #### E RUR #### [facility] [address] [place] [address] Dr. Helio Cee Bilirubin [Mass/Vol] 0.4 mg/dL Normal 0.2-1.0 [facility] Comment on above: Performed By: #### E RUR #### [facility] [address] [place] [address] Dr. Helio Cee Calcium [Mass/Vol] 8.7 mg/dL Normal 8.5-10.[address] [facility] Comment on above: Performed By: #### E RUR #### [facility] [address] [place] [address] Dr. Helio Cee Chloride [Moles/Vol] 108 mmol/L Critically high 98-107 [facility] Comment on above: Performed By: #### E RUR #### [facility] [address] [address] [address] Helio Cee CO2 [Moles/Vol] 24.2 mmol/L Normal 21.0-32.0 [facility] Comment on above: Performed By: #### E RUR #### [facility] [address] [address] [address] Helio Cee Creatinine [Mass/Vol] 1.03 mg/dL Critically high 0.55-1.02 [facility] Comment on above: Performed By: #### E RUR #### [facility] [address] [address] [address] Helio Cee EGFR-AF ETHIOPIAN >60 Normal >=60 [facility] Comment on above: Performed By: #### E RUR #### [facility] [address] [address] [address] Helio Cee EGFR-NON AF ETHIOPIAN 52 mL/min/1.73m2 Critically low >=60 [facility] Comment on above: Performed By: #### E RUR #### [facility] [address] [address] [address] Helio Cee Globulin (S) [Mass/Vol] 3.5 g/dL Normal [facility] Comment on above: Performed By: #### E RUR #### [facility] [address] [place] [address] Dr. Helio Cee Glucose [Mass/Vol] 142 mg/dL Critically high 74-106 [facility] Comment on above: Performed By: #### E RUR #### [facility] [address] [address] [address] Helio Cee Potassium [Moles/Vol] 3.6 mmol/L Normal 3.5-5.1 [facility] Comment on above: Performed By: #### E RUR #### [facility] [address] [address] [address] Helio Cee Protein [Mass/Vol] 6.4 g/dL Normal 6.4-8.[address] [facility] Comment on above: Performed By: #### E RUR #### [facility] [address] [address] [address] Helio Cee Sodium [Moles/Vol] 141 mmol/L Normal 136-[address] [facility] Comment on above: Performed By: #### E RUR #### [facility] [address] [address] [address] Helio Cee Urea nitrogen [Mass/Vol] 19.0 mg/dL Critically high 7.0-18.0 [facility] Comment on above: Performed By: #### E RUR #### [facility] [address] [place] [address] Dr. Helio Cee Urea nitrogen/Creatinine [Mass ratio] 18.4 mg/mg Normal [facility] Comment on above: Performed By: #### E RUR #### [facility] [address] [place] [address] Dr. Helio Cee XR CHEST 2 Von [...] by: EUN BARRY Date: 2021-11-20 07:56 Normal [facility] BNPon 11-19-2021 Natriuretic peptide B (Bld) [Mass/Vol] 777.0 pg/mL Normal <=900.0 [facility] Comment on above: Performed By: #### E RUR #### [facility] [address] [place] [address] Dr. Helio Cee CBC AUTO DIFFon 11-19-2021 BASO # 0.0 103/ul Normal 0.0-0.1 [facility] Comment on above: Performed By: #### V [id number] #### [facility] [address] [place] [address] Dr. Helio Cee Basophils/100 WBC (Bld) 0.2 % Normal 0.2-2.0 [facility] Comment on above: Performed By: #### V [id number] #### [facility] [address] [place] [address] Dr. Helio Cee EO # 0.1 103/ul Normal 0.0-0.7 [facility] Comment on above: Performed By: #### V [id number] #### [facility] [address] [place] [address] Dr. Helio Cee Eosinophils/100 WBC (Bld) 0.5 % Critically low 0.9-7.0 [facility] Comment on above: Performed By: #### V [id number] #### [facility] [address] [place] [address] Dr. Helio Cee Erythrocyte distribution width (RBC) [Ratio] 14.6 % Normal 11.0-15.0 [facility] Comment on above: Performed By: #### V [id number] #### [facility] [address] [place] [address] Dr. Helio Cee Hematocrit (Bld) [Volume fraction] 37.4 % Normal 36.0-48.0 [facility] Comment on above: Performed By: #### V [id number] #### [facility] [address] [place] [address] Dr. Helio Cee Hemoglobin (Bld) [Mass/Vol] 11.5 g/dL Critically low 12.0-16.0 [facility] Comment on above: Performed By: #### V [id number] #### [facility] [address] [place] [address] Dr. Helio Cee IG # 0.07 10e3/ul Critically high 0.00-0.03 [facility] Comment on above: Performed By: #### V [id number] #### [facility] [address] [place] [address] Dr. Helio Cee IG % 0.5 % Normal 0.0-0.5 [facility] Comment on above: Performed By: #### V [id number] #### [facility] [address] [place] [address] Dr. Helio Cee LYMPH # 1.1 103/ul Critically low 1.2-3.8 [facility] Comment on above: Performed By: #### V [id number] #### [facility] [address] [place] [address] Dr. Helio Cee Lymphocytes/100 WBC (Bld) 6.8 % Critically low 20.5-60.0 [facility] Comment on above: Performed By: #### V [id number] #### [facility] [address] [address] [address] Helio Cee MANUAL DIFF REQ NO Normal [facility] Comment on above: Performed By: #### V [id number] #### [facility] [address] [place] [address] Dr. Helio Cee MCH (RBC) [Entitic mass] 30.1 pg Normal 26.7-34.0 [facility] Comment on above: Performed By: #### V [id number] #### [facility] [address] [place] [address] Dr. Helio Cee MCHC (RBC) [Mass/Vol] 30.7 g/dL Normal 29.9-35.2 [facility] Comment on above: Performed By: #### V [id number] #### [facility] [address] [place] [address] Dr. Helio Cee MCV (RBC) [Entitic vol] 97.9 fL Normal 81.0-99.0 [facility] Comment on above: Performed By: #### V [id number] #### [facility] [address] [place] [address] Dr. Helio Cee MONO # 0.8 103/ul Normal 0.3-0.8 [facility] Comment on above: Performed By: #### V [id number] #### [facility] [address] [place] [address] Dr. Helio Cee Monocytes/100 WBC (Bld) 5.3 % Normal 1.7-12.0 [facility] Comment on above: Performed By: #### V [id number] #### [facility] [address] [place] [address] Dr. Helio Cee NEUT # 13.3 103/ul Critically high 1.4-6.5 [facility] Comment on above: Performed By: #### V [id number] #### [facility] [address] [place] [address] Dr. Helio Cee Neutrophils/100 WBC (Bld) 86.7 % Critically high 43.0-75.0 [facility] Comment on above: Performed By: #### V [id number] #### [facility] [address] [place] [address] Dr. Helio Cee Platelet mean volume (Bld) [Entitic vol] 11.4 fL Normal 9.5-13.5 [facility] Comment on above: Performed By: #### V [id number] #### [facility] [address] [place] [address] Dr. Helio Cee PLT 215 103/ul Normal 150-450 [facility] Comment on above: Performed By: #### V [id number] #### [facility] [address] [place] [address] Dr. Helio Cee RBC 3.82 106/ul Critically low 4.20-5.40 [facility] Comment on above: Performed By: #### V [id number] #### [facility] [address] [place] [address] Dr. Helio Cee WBC 15.3 103/ul Critically high 4.0-11.0 [facility] Comment on above: Performed By: #### V [id number] #### [facility] [address] [place] [address] Dr. Helio Cee PROF 14(COMP METB)on 022 Albumin [Mass/Vol] 2.8 g/dL Critically low 3.4-5.[address] [facility] Comment on above: Performed By: #### E RUR #### [facility] [address] [place] [address] Dr. Helio Cee Albumin/Globulin [Mass ratio] 0.8 {ratio} Normal [facility] Comment on above: Performed By: #### E RUR #### [facility] [address] [place] [address] Dr. Helio Cee ALP [Catalytic activity/Vol] 74 U/L Normal 46-116 [facility] Comment on above: Performed By: #### E RUR #### [facility] [address] [place] [address] Dr. Helio Cee ALT [Catalytic activity/Vol] 21 U/L Normal 14-59 [facility] Comment on above: Performed By: #### E RUR #### [facility] [address] [place], [place] [id number] Dr. Helio Cee Anion gap [Moles/Vol] 13.5 mmol/L Normal [facility] Comment on above: Performed By: #### E RUR #### [facility] [address] [place] [address] Dr. Helio Cee AST [Catalytic activity/Vol] 11 U/L Critically low 15-37 [facility] Comment on above: Performed By: #### E RUR #### [facility] [address] [place] [address] Dr. Helio Cee Bilirubin [Mass/Vol] 0.5 mg/dL Normal 0.2-1.0 [facility] Comment on above: Performed By: #### E RUR #### [facility] [address] [place] [address] Dr. Helio Cee Calcium [Mass/Vol] 8.4 mg/dL Critically low 8.5-10.[address] [facility] Comment on above: Performed By: #### E RUR #### [facility] [address] [place] [address] Dr. Helio Cee Chloride [Moles/Vol] 107 mmol/L Normal 98-107 [facility] Comment on above: Performed By: #### E RUR #### [facility] [address] [place] [address] Dr. Helio Cee CO2 [Moles/Vol] 21.0 mmol/L Normal 21.0-32.0 [facility] Comment on above: Performed By: #### E RUR #### [facility] [address] [place] [address] Dr. Helio Cee Creatinine [Mass/Vol] 1.07 mg/dL Critically high 0.55-1.02 [facility] Comment on above: Performed By: #### E RUR #### [facility] [address] [place] [address] Dr. Helio Cee EGFR-AF ETHIOPIAN >60 Normal >=60 [facility] Comment on above: Performed By: #### E RUR #### [facility] [address] [place] [address] Dr. Helio Cee EGFR-NON AF ETHIOPIAN 50 mL/min/1.73m2 Critically low >=60 [facility] Comment on above: Performed By: #### E RUR #### [facility] [address] [place] [address] Dr. Helio Cee Globulin (S) [Mass/Vol] 3.4 g/dL Normal [facility] Comment on above: Performed By: #### E RUR #### [facility] [address] [address] [address] Helio Cee Glucose [Mass/Vol] 109 mg/dL Critically high 74-106 [facility] Comment on above: Performed By: #### E RUR #### [facility] [address] [place] [address] Dr. Helio Cee Potassium [Moles/Vol] 3.5 mmol/L Normal 3.5-5.1 [facility] Comment on above: Performed By: #### E RUR #### [facility] [address] [place] [address] Dr. Helio Cee Protein [Mass/Vol] 6.2 g/dL Critically low 6.4-8.2 [facility] Comment on above: Performed By: #### E RUR #### [facility] [address] [place] [address] Dr. Helio Cee Sodium [Moles/Vol] 138 mmol/L Normal 136-[address] [facility] Comment on above: Performed By: #### E RUR #### [facility] [address] [place] [address] Dr. Helio Cee Urea nitrogen [Mass/Vol] 25.0 mg/dL Critically high 7.0-18.0 [facility] Comment on above: Performed By: #### E RUR #### [facility] [address] [place] [address] Dr. Helio Cee Urea nitrogen/Creatinine [Mass ratio] 23.4 mg/mg Normal [facility] Comment on above: Performed By: #### E RUR #### [facility] [address] [place] [address] Dr. Helio Cee BNPon 11-18-2021 Natriuretic peptide B (Bld) [Mass/Vol] 386.0 pg/mL Normal <=900.0 [facility] Comment on above: Performed By: #### B MEAT BONER, HSTROPN, BMP ####[facility] [id number] [address]Dr. Helio Cee CBC AUTO DIFFon 11-18-2021 BASO # 0.0 103/ul Normal 0.0-0.1 [facility] Comment on above: Performed By: #### V [id number] #### [facility] [address] [address] [address] Helio Cee Basophils/100 WBC (Bld) 0.3 % Normal 0.2-2.0 [facility] Comment on above: Performed By: #### V [id number] #### [facility] [address] [address] [address] Helio Cee EO # 0.0 103/ul Normal 0.0-0.7 [facility] Comment on above: Performed By: #### V [id number] #### [facility] [address] [address] [address] Helio Cee Eosinophils/100 WBC (Bld) 0.1 % Critically low 0.9-7.0 [facility] Comment on above: Performed By: #### V [id number] #### [facility] [address] [address] [address] Helio Cee Erythrocyte distribution width (RBC) [Ratio] 14.4 % Normal 11.0-15.0 [facility] Comment on above: Performed By: #### V [id number] #### [facility] [address] [address] [address] Helio Cee Hematocrit (Bld) [Volume fraction] 43.6 % Normal 36.0-48.0 [facility] Comment on above: Performed By: #### V [id number] #### [facility] [address] [address] [address] Helio Cee Hemoglobin (Bld) [Mass/Vol] 13.4 g/dL Normal 12.0-16.0 [facility] Comment on above: Performed By: #### V [id number] #### [facility] [address] [address] [address] Helio Cee IG # 0.03 10e3/ul Normal 0.00-0.03 [facility] Comment on above: Performed By: #### V [id number] #### [facility] [address] [address] [address] Helio Cee IG % 0.3 % Normal 0.0-0.5 [facility] Comment on above: Performed By: #### V [id number] #### [facility] [address] [address] [address] Helio Cee LYMPH # 0.4 103/ul Critically low 1.2-3.8 [facility] Comment on above: Performed By: #### V [id number] #### [facility] [address] [place] [address] Dr. Helio Cee Lymphocytes/100 WBC (Bld) 4.0 % Critically low 20.5-60.0 [facility] Comment on above: Performed By: #### V [id number] #### [facility] [address] [place] [address] Dr. Helio Cee MANUAL DIFF REQ NO Normal [facility] Comment on above: Performed By: #### V [id number] #### [facility] [address] [place] [address] Dr. Helio Cee MCH (RBC) [Entitic mass] 29.6 pg Normal 26.7-34.0 [facility] Comment on above: Performed By: #### V [id number] #### [facility] [address] [address] [address] Helio Cee MCHC (RBC) [Mass/Vol] 30.7 g/dL Normal 29.9-35.2 [facility] Comment on above: Performed By: #### V [id number] #### [facility] [address] [place] [address] Dr. Helio Cee MCV (RBC) [Entitic vol] 96.5 fL Normal 81.0-99.0 [facility] Comment on above: Performed By: #### V [id number] #### [facility] [address] [address] [address] Helio Cee MONO # 0.6 103/ul Normal 0.3-0.8 [facility] Comment on above: Performed By: #### V [id number] #### [facility] [address] [place] [address] Dr. Helio Cee Monocytes/100 WBC (Bld) 5.4 % Normal 1.7-12.0 [facility] Comment on above: Performed By: #### V [id number] #### [facility] [address] [place] [address] Dr. Helio Cee NEUT # 9.7 103/ul Critically high 1.4-6.5 [facility] Comment on above: Performed By: #### V [id number] #### [facility] [address] [place] [address] Dr. Helio Cee Neutrophils/100 WBC (Bld) 89.9 % Critically high 43.0-75.0 [facility] Comment on above: Performed By: #### V [id number] #### [facility] [address] [place] [address] Dr. Helio Cee Platelet mean volume (Bld) [Entitic vol] 10.9 fL Normal 9.5-13.5 [facility] Comment on above: Performed By: #### V [id number] #### [facility] [address] [place] [address] Dr. Heilo Cee PLT 265 103/ul Normal 150-450 [facility] Comment on above: Performed By: #### V [id number] #### [facility] [address] [place] [address] Dr. Helio Cee RBC 4.52 106/ul Normal 4.20-5.40 [facility] Comment on above: Performed By: #### V [id number] #### [facility] [address] [place] [address] Dr. Helio Cee WBC 10.7 103/ul Normal 4.0-11.0 [facility] Comment on above: Performed By: #### V [id number] #### [facility] [address] [place] [address] Dr. Helio Cee CULTURE BLOODon 11-18-2021 Microscopic examination of blood, culture Culture Observations: NO GROWTH AT 5 DAYS. Normal [facility] Comment on above: Performed By: #### B [id number] #### [facility] [address] [place] [address] Dr. Helio Cee Microscopic examination of blood, culture Culture Observations: NO GROWTH AT 5 DAYS. Normal [facility] Comment on above: Performed By: #### B [id number] #### [facility] [address] [place] [address] Dr. Helio Cee Covid-19 PCR ([facility])on SARS-CoV-2 (COVID-19) RNA KIMMY+probe Ql (Unsp spec) Not detected Normal NOT DETECTED [facility] Comment on above: Result Comment: When diagnostic [...] for this test is supported by the [place] of [employer] and Human Service's declaration that [...] By: #### E RUR #### [facility] [address] [place] [address] Dr. Helio Cee ER URINE PROFILEon 2 Bilirubin Ql (U) Negative Normal NEGATIVE [facility] Comment on above: Performed By: #### E RUR #### [facility] [address] [place] [address] Dr. Helio Cee Clarity (U) CLEAR Normal CLEAR [facility] Comment on above: Performed By: #### E RUR #### [facility] [address] [place] [address] Dr. Helio Cee Color (U) LT. YELLOW Normal YELLOW [facility] Comment on above: Performed By: #### E RUR #### [facility] [address] [place] [address] Dr. Helio BOWLESAHAg A micrscopic examination will be performed if indicated. Normal [facility] Comment on above: Performed By: #### E RUR #### [facility] [address] [place] [address] Dr. Helio Cee Glucose Ql (U) Negative Normal NEGATIVE [facility] Comment on above: Performed By: #### E RUR #### [facility] [address] [place] [address] Dr. Helio Cee Hemoglobin Ql (U) Negative Normal NEGATIVE [facility] Comment on above: Performed By: #### E RUR #### [facility] [address] [place] [address] Dr. Helio Cee Ketones Ql (U) Negative Normal NEGATIVE [facility] Comment on above: Performed By: #### E RUR #### [facility] [address] [place] [address] Dr. Helio Cee LEUKOCYTES Negative Normal NEGATIVE [facility] Comment on above: Performed By: #### E RUR #### [facility] [address] [place] [address] Dr. Helio Cee Nitrite Ql (U) Negative Normal NEGATIVE [facility] Comment on above: Performed By: #### E RUR #### [facility] [address] [place] [address] Dr. Helio Cee pH (U) 5.5 [pH] Normal 5-9 [facility] Comment on above: Performed By: #### E RUR #### [facility] [address] [place] [address] Dr. Helio Cee SPEC GRAVITY 1.015 Normal 1.005-<=1.02 5 [facility] Comment on above: Performed By: #### E RUR #### [facility] [address] [address] [address] Helio Cee UA PROTEIN Negative Normal NEGATIVE/ TRACE [facility] Comment on above: Performed By: #### E RUR #### [facility] [address] [address] [address] Helio Cee UR MICRO IND NOT INDICATED Normal [facility] Comment on above: Performed By: #### E RUR #### [facility] [address] [address] [address] Helio Cee Urobilinogen Qn (U) 0.2 {Nevaeh'U}/dL Normal 0.2 - 1. 0 [facility] Comment on above: Performed By: #### E RUR #### [facility] [address] [address] [address] Helio Cee PROF CHEM 8 (BAS METB)on Anion gap [Moles/Vol] 13.6 mmol/L Normal [facility] Comment on above: Performed By: #### B MEAT BONER, HSTROPN, BMP ####[facility] [id number] [address]Dr. Helio Cee Calcium [Mass/Vol] 9.1 mg/dL Normal 8.5-10.[address] [facility] Comment on above: Performed By: #### B MEAT BONER, HSTROPN, BMP ####[facility] [address] [address]Dr. Helio Cee Chloride [Moles/Vol] 110 mmol/L Critically high 98-107 [facility] Comment on above: Performed By: #### B MEAT BONER, HSTROPN, BMP ####[facility] [id number] [address]DrCarlos Cee CO2 [Moles/Vol] 22.9 mmol/L Normal 21.0-32.0 [facility] Comment on above: Performed By: #### B MEAT BONER, HSTROPN, BMP ####[facility] [address] [address]Dr. Helio Cee Creatinine [Mass/Vol] 1.47 mg/dL Critically high 0.55-1.02 [facility] Comment on above: Performed By: #### B MEAT BONER, HSTROPN, BMP ####[facility] [id number] [address]Dr. Helio Cee EGFR-AF ETHIOPIAN 42 mL/min/1.73m2 Critically low >=60 [facility] Comment on above: Performed By: #### B MEAT BONER, HSTROPN, BMP ####[facility] [address] [address]Dr. Helio Cee EGFR-NON AF ETHIOPIAN 35 mL/min/1.73m2 Critically low >=60 [facility] Comment on above: Performed By: #### B MEAT BONER, HSTROPN, BMP ####[facility] [address] [place], [place] [address]Dr. Helio Cee Glucose [Mass/Vol] 120 mg/dL Critically high 74-106 [facility] Comment on above: Performed By: #### B MEAT BONER, HSTROPN, BMP ####[facility] [id number] [place], [place] [address]Dr. Helio Cee Potassium [Moles/Vol] 3.5 mmol/L Normal 3.5-5.1 [facility] Comment on above: Performed By: #### B MEAT BONER, HSTROPN, BMP ####[facility] [id number] [address]Dr. Helio Cee Sodium [Moles/Vol] 143 mmol/L Normal 136-[address] [facility] Comment on above: Performed By: #### B MEAT BONER, HSTROPN, BMP ####[facility] [address] [place], [place] [address]Dr. Helio Cee Urea nitrogen [Mass/Vol] 29.0 mg/dL Critically high 7.0-18.0 [facility] Comment on above: Performed By: #### B MEAT BONER, HSTROPN, BMP ####[facility] [address] [place], [place] [address]Dr. Helio Cee Urea nitrogen/Creatinine [Mass ratio] 19.7 mg/mg Normal [facility] Comment on above: Performed By: #### B ABHI RODRIGUEZ BMP ####[facility] [id number] [id number]. Helio Cee TROPONIN, HIGH SENSITIVITYon 11-18-2021 HSTROP 8.2 pg/mL Normal 4.0-51.3 [facility] Comment on above: Result Comment: CUT- OFF POINTS HAVE BEEN ESTABLISHED BASED ON THE FOURTH UNIVERSAL DEFINITIONS OF MYOCARDIAL INFARCTION. THE UPPER REFERENCE LIMIT (URL) OF TROPONIN, DEFINED THE 99TH PERCENTILE OF cTnI DISTRIBUTION IN A REFERENCE POPULATION, HAS BEEN CONFIRMED THE DECISION THRESHOLD FOR [place] DIAGNOSIS. Performed By: #### B ABHI RODRIGUEZ BMP ####[facility] [id number] [id number]. Helio Cee XR CHEST 1 Von 11-18-2021 [...] EHSAN MILLER Date: 2021-11-18 10:38 Normal [facility] BNPon 10-25-2021 Natriuretic peptide B (Bld) [Mass/Vol] 396.0 pg/mL Normal <=900.0 [facility] Comment on above: Performed By: #### V [id number] #### [facility] [address] [place] [address] Dr. Helio Cee CBC AUTO DIFFon 10-25-2021 BASO # 0.1 103/ul Normal 0.0-0.1 [facility] Comment on above: Performed By: #### E RUR #### [facility] [address] [place] [address] Dr. Helio Cee Basophils/100 WBC (Bld) 1.0 % Normal 0.2-2.0 [facility] Comment on above: Performed By: #### E RUR #### [facility] [address] [place] [address] Dr. Helio Cee EO # 0.2 103/ul Normal 0.0-0.7 [facility] Comment on above: Performed By: #### E RUR #### [facility] [address] [place] [address] Dr. Helio Cee Eosinophils/100 WBC (Bld) 2.7 % Normal 0.9-7.0 [facility] Comment on above: Performed By: #### E RUR #### [facility] [address] [place] [address] Dr. Helio Cee Erythrocyte distribution width (RBC) [Ratio] 14.6 % Normal 11.0-15.0 [facility] Comment on above: Performed By: #### E RUR #### [facility] [address] [place] [address] Dr. Helio Cee Hematocrit (Bld) [Volume fraction] 44.8 % Normal 36.0-48.0 [facility] Comment on above: Performed By: #### E RUR #### [facility] [address] [place] [address] Dr. Helio Cee Hemoglobin (Bld) [Mass/Vol] 13.8 g/dL Normal 12.0-16.0 [facility] Comment on above: Performed By: #### E RUR #### [facility] [address] [place] [address] Dr. Helio Cee IG # 0.03 10e3/ul Normal 0.00-0.03 [facility] Comment on above: Performed By: #### E RUR #### [facility] [address] [place] [address] Dr. Helio Cee IG % 0.3 % Normal 0.0-0.5 [facility] Comment on above: Performed By: #### E RUR #### [facility] [address] [place] [address] Dr. Helio Cee LYMPH # 1.6 103/ul Normal 1.2-3.8 [facility] Comment on above: Performed By: #### E RUR #### [facility] [address] [place] [address] Dr. Helio Cee Lymphocytes/100 WBC (Bld) 18.5 % Critically low 20.5-60.0 [facility] Comment on above: Performed By: #### E RUR #### [facility] [address] [place] [address] Dr. Helio Cee MANUAL DIFF REQ NO Normal [facility] Comment on above: Performed By: #### E RUR #### [facility] [address] [place] [address] Dr. Helio Cee MCH (RBC) [Entitic mass] 29.9 pg Normal 26.7-34.0 [facility] Comment on above: Performed By: #### E RUR #### [facility] [address] [place] [address] Dr. Helio Cee MCHC (RBC) [Mass/Vol] 30.8 g/dL Normal 29.9-35.2 [facility] Comment on above: Performed By: #### E RUR #### [facility] [address] [place] [address] Dr. Helio Cee MCV (RBC) [Entitic vol] 97.2 fL Normal 81.0-99.0 [facility] Comment on above: Performed By: #### E RUR #### [facility] [address] [place] [address] Dr. Helio Cee MONO # 0.6 103/ul Normal 0.3-0.8 [facility] Comment on above: Performed By: #### E RUR #### [facility] [address] [place] [address] Dr. Helio Cee Monocytes/100 WBC (Bld) 7.0 % Normal 1.7-12.0 [facility] Comment on above: Performed By: #### E RUR #### [facility] [address] [place] [address] Dr. Helio Cee NEUT # 6.1 103/ul Normal 1.4-6.5 [facility] Comment on above: Performed By: #### E RUR #### [facility] [address] [address] [address] Helio Cee Neutrophils/100 WBC (Bld) 70.5 % Normal 43.0-75.0 [facility] Comment on above: Performed By: #### E RUR #### [facility] [address] [address] [address] Helio Cee Platelet mean volume (Bld) [Entitic vol] 11.0 fL Normal 9.5-13.5 [facility] Comment on above: Performed By: #### E RUR #### [facility] [address] [place] [address] Dr. Helio Cee PLT 292 103/ul Normal 150-450 [facility] Comment on above: Performed By: #### E RUR #### [facility] [address] [place] [address] Dr. Helio Cee RBC 4.61 106/ul Normal 4.20-5.40 [facility] Comment on above: Performed By: #### E RUR #### [facility] [address] [place] [address] Dr. Helio Cee WBC 8.6 103/ul Normal 4.0-11.0 [facility] Comment on above: Performed By: #### E RUR #### [facility] [address] [place] [address] Dr. Helio Cee ECHOCARDIO M/2D COMPLETEon 0 10-25-2021 ECHOCARDIO M/2D COMPLETE Patient: AARON JJ Exam Date: 10/25/2021 : 1945 Gender:F Ordering : DR JEREMIAH REED M.D. Admission #: [id number] Family : Order #: [id number] CLICK HERE TO VIEW EXAM ECHOCARDIOGRAM REPORT [...] Area(A4C): 20.40 cm2 Left Atrium Systolic Volume(A2C): 57439 mm3 Left Atrium Systolic Volume(A4C): 26571 mm3 Mitral Valve MV E to A Ratio: 0.80 Deceleration [place]: 4670 mm/s2 Mitral Valve A-Wave Peak Velocity: [...] Cheema M.D. on 10/25/2021 at 19:31 Normal [facility] MAMM SCREEN 3D EBONI CADon 10-25-2021 MG MAMM SCREEN 3D EBONI CAD Patient: AARON JJ Exam Date: 10/25/2021 : 1945 Gender:F Ordering : DR JEREMIAH REED M.D. Admission #: [id number] Family : Order #: [id number] CLICK HERE TO VIEW EXAM RADIOLOGY REPORT [...] at age 72. LOCATION: [facility] BREAST COMPOSITION: Heterogeneously dense,which may obscure small [...] LUMP SHOULD BE BIOPSIED. Dictated by: Ehsan iMller M.D. on 10/25/2021 at 15:29 Approved by: Ehsan Miller M.D. on 10/25/2021 at 15:33 Normal [facility] PROF 14(COMP METB)on 022 Albumin [Mass/Vol] 3.8 g/dL Normal 3.4-5.[address] [facility] Comment on above: Performed By: #### V [id number] #### [facility] [address] [place] [address] Dr. Helio Cee Albumin/Globulin [Mass ratio] 1.1 {ratio} Normal [facility] Comment on above: Performed By: #### V [id number] #### [facility] [address] [address] [address] Helio Cee ALP [Catalytic activity/Vol] 97 U/L Normal 46-116 [facility] Comment on above: Performed By: #### V [id number] #### [facility] [address] [address] [address] Helio Cee ALT [Catalytic activity/Vol] 31 U/L Normal 14-59 [facility] Comment on above: Performed By: #### V [id number] #### [facility] [address] [address] [address] Helio Cee Anion gap [Moles/Vol] 11.0 mmol/L Normal [facility] Comment on above: Performed By: #### V [id number] #### [facility] [address] [address] [address] Helio Cee AST [Catalytic activity/Vol] 13 U/L Critically low 15-37 [facility] Comment on above: Performed By: #### V [id number] #### [facility] [address] [address] [address] Helio Cee Bilirubin [Mass/Vol] 0.4 mg/dL Normal 0.2-1.0 [facility] Comment on above: Performed By: #### V [id number] #### [facility] [address] [address] [address] Helio Cee Calcium [Mass/Vol] 9.3 mg/dL Normal 8.5-10.[address] [facility] Comment on above: Performed By: #### V [id number] #### [facility] [address] [address] [address] Helio Cee Chloride [Moles/Vol] 108 mmol/L Critically high 98-107 [facility] Comment on above: Performed By: #### V [id number] #### [facility] [address] [address] [address] Helio Cee CO2 [Moles/Vol] 28.4 mmol/L Normal 21.0-32.0 [facility] Comment on above: Performed By: #### V [id number] #### [facility] [address] [address] [address] Helio Cee Creatinine [Mass/Vol] 1.09 mg/dL Critically high 0.55-1.02 [facility] Comment on above: Performed By: #### V [id number] #### [facility] [address] [address] [address] Helio Cee EGFR-AF ETHIOPIAN 59 mL/min/1.73m2 Critically low >=60 [facility] Comment on above: Performed By: #### V [id number] #### [facility] [address] [address] [address] Helio Cee EGFR-NON AF ETHIOPIAN 49 mL/min/1.73m2 Critically low >=60 [facility] Comment on above: Performed By: #### V [id number] #### [facility] [address] [address] [address] Helio Cee Globulin (S) [Mass/Vol] 3.4 g/dL Normal [facility] Comment on above: Performed By: #### V [id number] #### [facility] [address] [address] [address] Helio Cee Glucose [Mass/Vol] 100 mg/dL Normal 74-[address] [facility] Comment on above: Performed By: #### V [id number] #### [facility] [address] [address] [address] Helio Cee Potassium [Moles/Vol] 4.4 mmol/L Normal 3.5-5.1 [facility] Comment on above: Performed By: #### V [id number] #### [facility] [address] [address] [address] Helio Cee Protein [Mass/Vol] 7.2 g/dL Normal 6.4-8.[address] [facility] Comment on above: Performed By: #### V [id number] #### [facility] [address] [address] [address] Helio Cee Sodium [Moles/Vol] 143 mmol/L Normal 136-[address] [facility] Comment on above: Performed By: #### V [id number] #### [facility] [address] [address] [address] Helio Cee Urea nitrogen [Mass/Vol] 24.0 mg/dL Critically high 7.0-18.0 [facility] Comment on above: Performed By: #### V [id number] #### [facility] [address] [address] [address] Helio Cee Urea nitrogen/Creatinine [Mass ratio] 22.0 mg/mg Normal [facility] Comment on above: Performed By: #### V [id number] #### [facility] [address] [address] [address] Helio Cee TSHon 10-25-2021 TSH 0.635 uIU/mL Normal 0.358-3.740 [facility] Comment on above: Performed By: #### V [id number] #### [facility] [address] [address] [address] Helio Cee Vital Signs Date Time Vital Sign Value Performing Clinician Facility 09-26-2023 15:39-0400 Blood Pressure Location BRENDA MARIN [facility] 09-26-2023 15:39-0400 Diastolic blood pressure 84 mm[Hg] BRENDA MARIN [facility] 09-26-2023 15:39-0400 Heart rate 68 /min BRENDA MARIN [facility] 09-26-2023 15:39-0400 Respiratory rate 16 /min BRENDA MIAH [facility] 09-26-2023 15:39-0400 Systolic blood pressure 132 mm[Hg] BRENDA MIAH [facility] 08-28-2023 14:59-0400 Blood Pressure Location BRENDA MIAH [facility] 08-28-2023 14:59-0400 Body temperature 98.24 [degF] BRENDA MIAH [facility] 08-28-2023 14:59-0400 Diastolic blood pressure 80 mm[Hg] BRENDA MIAH [facility] 08-28-2023 14:59-0400 Heart rate 92 /min BRENDA MIAH [facility] 08-28-2023 14:59-0400 Respiratory rate 16 /min BRENDA MIAH [facility] 08-28-2023 14:59-0400 Systolic blood pressure 132 mm[Hg] BRENDA MIAH [facility] 06-05-2023 12:55-0500 Blood Pressure Location BRENDA MIAH [facility] 06-05-2023 12:55-0500 Diastolic blood pressure 88 mm[Hg] BRENDA MIAH [facility] 06-05-2023 12:55-0500 Heart rate 74 /min BRENDA MIAH [facility] 06-05-2023 12:55-0500 Respiratory rate 16 /min BRENDA MARIN [facility] 06-05-2023 12:55-0500 Systolic blood pressure 134 mm[Hg] BRENDA MARIN [facility] 04-30-2023 15:30-0500 Body height 161.29 cm Jeremiah Reed Other [facility] [employer] Other 04-30-2023 15:30-0500 Body mass index (BMI) [Ratio] 35.29 kg/m2 Jeremiah Reed Other [employer] Other 04-30-2023 15:30-0500 Body weight 91.81 kg Jeremiah Reed Other [facility] [employer] Other 04-30-2023 15:30-0500 Diastolic blood pressure 74 mm[Hg] Jeremiah Reed Other [employer] Other 04-30-2023 15:30-0500 Systolic blood pressure 109 mm[Hg] Jeremiah Reed Other [facility] [employer] Other 04-13-2023 14:40-0500 [facility] 04-13-2023 14:40-0500 Promise to Return [facility] 04-13-2023 13:00-0500 Diastolic blood pressure 77 mm[Hg] [facility] 04-13-2023 13:00-0500 Heart rate 78 /min [facility] 04-13-2023 13:00-0500 [facility] 04-13-2023 13:00-0500 [facility] 04-13-2023 13:00-0500 Respiratory rate 16 /min [facility] 04-13-2023 13:00-0500 Systolic blood pressure 127 mm[Hg] [facility] 04-13-2023 12:13-0500 Heart rate 80 /min [employer] [facility] 04-13-2023 12:13-0500 SaO2% (BldA) [Mass fraction] 95 % [facility] 04-13-2023 12:12-0500 Body temperature 97.16 [degF] [facility] 04-13-2023 12:11-0500 Diastolic blood pressure 78 mm[Hg] [facility] 04-13-2023 12:11-0500 Mean blood pressure 94 mm[Hg] [employer] [facility] 04-13-2023 12:11-0500 Systolic blood pressure 125 mm[Hg] [facility] 04-13-2023 12:00-0500 [facility] 04-13-2023 12:00-0500 [facility] 04-13-2023 09:10-0500 Diastolic blood pressure 70 mm[Hg] hari [facility] 04-13-2023 09:10-0500 Heart rate 87 /min [facility] 04-13-2023 09:10-0500 Mean blood pressure 90 mm[Hg] [facility] 04-13-2023 09:10-0500 Respiratory rate 17 /min [facility] 04-13-2023 09:10-0500 Systolic blood pressure 130 mm[Hg] [facility] 04-13-2023 08:00-0500 SaO2% (BldA) [Mass fraction] 93 % [facility] 04-13-2023 07:29-0500 Heart rate 89 /min [facility] 04-13-2023 07:29-0500 SaO2% (BldA) [Mass fraction] 94 % [facility] 04-13-2023 07:29-0500 Mean blood pressure 88 mm[Hg] [facility] 04-13-2023 07:29-0500 Body temperature 97.88 [degF] [facility] 04-13-2023 05:00-0500 Blood Pressure Location [facility] 04-13-2023 05:00-0500 Heart rate 95 /min [facility] 04-13-2023 05:00-0500 Mean blood pressure 100 mm[Hg] [facility] 04-13-2023 00:18-0500 Blood Pressure Location [facility] 04-13-2023 00:18-0500 Body temperature 97.52 [degF] [facility] 04-12-2023 20:33-0500 Body temperature 97.34 [degF] [facility] 04-12-2023 20:33-0500 Mean blood pressure 88 mm[Hg] [facility] 04-12-2023 18:03-0500 Blood Pressure Location [facility] 04-12-2023 16:49-0500 Respiratory rate 22 /min [facility] 04-12-2023 15:00-0500 Respiratory rate 20 /min [facility] 04-12-2023 12:24-0500 gluc 88 mg/dL [facility] 04-12-2023 12:24-0500 gluc [facility] 04-12-2023 12:19-0500 Body temperature 97.7 [degF] [facility] 03-29-2023 15:30-0500 Body height 161.29 cm Jeremiah Reed Other [employer] Other 03-29-2023 15:30-0500 Body mass index (BMI) [Ratio] 37.14 kg/m2 Jeremiah Reed Other [employer] Other 03-29-2023 15:30-0500 Body weight 96.62 kg Jeremiah Reed Other [employer] Other 03-29-2023 15:30-0500 Diastolic blood pressure 85 mm[Hg] Jeremiah Reed Other [employer] Other 03-29-2023 15:30-0500 Systolic blood pressure 144 mm[Hg] Jeremiah Reed Other [employer] Other 06-21-2022 14:42-0500 Blood Pressure Location BRENDA MARIN [facility] Encounters Encounter Date Encounter Type Care Provider Facility Start: 09-26-2023 ambulatory BRENDA Rutledgei ty:[facility] Start: 09-26-2023 End: 09-26-2023 Patient encounter procedure BRENDA MARIN [facility] Start: 09-17-2023 End: 09-18-2023 ambulatory Drake Delatorre MD Facility:[facility] Start: 08-30-2023 End: 08-30-2023 ambulatory DIDIER MALDONADO Not Available Start: 08-28-2023 End: 08-29-2023 ambulatory BRENDA E MIAH Facility:[facility] Start: 08-28-2023 End: 08-28-2023 Patient encounter procedure BRENDA E MIAH [facility] Start: 07-23-2023 End: 07-24-2023 ambulatory Cayden ROBB Facility:[facility] Start: 07-23-2023 End: 07-23-2023 Patient encounter procedure Cayden ROBB [facility] Start: 07-09-2023 End: 07-10-2023 ambulatory BRENDA Zulema MIAH Facility:[facility] Start: 06-20-2023 End: 06-20-2023 ambulatory Jeremiah Reed Other [employer] Other Start: 06-20-2023 Telephone encounter Jeremiah Reed [facility] Start: 06-05-2023 End: 06-06-2023 ambulatory BRENDA E MIAH Facility:[facility] Start: 06-05-2023 End: 06-06-2023 ambulatory BRENDA E MIAH Facility:[facility] Start: 06-05-2023 End: 06-05-2023 Lab Drop off BRENDA E MIAH [facility] Start: 06-05-2023 End: 06-05-2023 Patient encounter procedure BRENDA Zulema SOLIMANRY [facility] Start: 04-30-2023 End: 04-30-2023 ambulatory Jeremiah Reed Other [employer] Other Start: 04-30-2023 Office outpatient vi sit 25 minutes Jeremiah Reed [facility] Start: 04-30-2023 Telephone encounter Jeremiah Reed [facility] Start: 04-17-2023 End: 04-17-2023 ambulatory Jeremiah Reed Other [employer] Other Start: 04-17-2023 Telephone encounter Jeremiah Reed [facility] Start: 04-13-2023 End: 04-13-2023 ambulatory Ray Fofana Other [employer] Other Start: 04-13-2023 Telephone encounter Ray Fofana [facility] Start: 04-12-2023 End: 04-13-2023 ambulatory Efrain Kurtz Facility:[facility] Start: 04-12-2023 End: 04-13-2023 Observation Efrain Kurtz [facility] Start: 04-09-2023 End: 04-10-2023 ambulatory Drake Del[facility] MD [facility] Start: 03-30-2023 End: 03-30-2023 ambulatory Jeremiah Reed Other [employer] Other Start: 03-30-2023 Telephone encounter Jeremiah Reed [facility] Start: 03-29-2023 End: 03-29-2023 ambulatory Jeremiah Reed Other [employer] Other Start: 03-29-2023 Transitional care manage srvc 14 day discharge Jeremiah Reed [facility] Start: 03-05-2023 End: 03-06-2023 ambulatory Drake Delatorre MD Facility:[facility] Start: 02-05-2023 End: 02-06-2023 ambulatory Drake Delatorre MD Facility:[facility] Start: 01-08-2023 End: 01-09-2023 ambulatory Drake Delatorre MD Facility:[facility] Start: 12-25-2022 End: 12-26-2022 ambulatory Drake Delatorre MD Facility:[facility] Start: 09-01-2022 End: 09-02-[address] JEREMIAH REED Facility:[facility] Start: 08-29-2022 End: 08-30-2022 ambulatory BARBARA EDWARDSSHMIPATHY . Facility:[facility] Start: 08-21-2022 End: 08-22-[address] EHSAN MILLER Facility:[facility] Start: 08-10-2022 End: 08-11-2022 ambulatory BRENT MALDONADO Facility:[facility] Start: 06-21-2022 End: 06-21-2022 Patient encounter procedure BRENDA Zulema SOLIMANRY [facility] Start: 06-12-2022 End: 06-13-[address] [...] 10-24-2018 End: 10-24-2018 Patient encounter procedure Radha Dong Work Phone: [facility] Start: 08-21-2018 End: 08-21-2018 Patient encounter procedure Radha Dong Work Phone: [facility] Start: 06-28-2018 End: 06-28-2018 Patient encounter procedure Radha Dong Work Phone: [facility] Procedures Date Procedure Procedure Detail [...] Influenza vaccination INFLUENZ A VACCINE (Season Ended) [facility] Start: 01-12-2018 Influenza vaccination INFLUENZA VACC INE (#1) [facility] Start: 02-10-2012 Pneumococcal vaccination PNEUM OCOCCAL VACCINE SERIES (1 of 2 - PCV13) [facility] Start: 1997 Protein mass conc COLON CANCER SCREENING DISCUSSION [facility] Start: 1997 Zoster vaccine hzv l derrell for subcutaneous use ZOSTER (SHINGLES) VACCINE (1 of 2) [facility] Start: 1987 Fasting lipid profile LIPID SCREENIN G [facility] Start: 1987 Protein mass conc MAMMOGRAM SC REENING DISCUSSION [facility] Start: 02-10-1968 Screening for malign ant neoplasm of cervix PAP SMEAR DISCUSSION [facility] Start: 1966 Third diphtheria, te tanus and acellular pertussis (DTaP) vaccination TDAP (ADULT) [facility] Start: 1965 Tetanus vaccination [facility] Start: 1947 Hepatitis C antibody , confirmatory test HEPATITIS C VIRUS SCREENING [facility] Start: 1947 Screening for osteoporosis DEXA SCAN DISCUSSION [facility] Immunizations Immunization Date Immunization Notes Care Provider Fa cility 03-31-2021 SARS-CoV-2 (COVID-19 ) mRNA BNT-162b2 vax BRENDA MARIN [facility] 07-21-2020 SARS-CoV-2 (COVID-19 ) Ad26 vaccine, recombinant BRENDA MARIN [facility] 04-11-2020 influenza virus vaccine, unspecified formulation BRENDA MARIN [facility] 02-02-2011 influenza virus vaccine, unspecified formulation BRENDA MARIN [facility] Payers Date Payer Category Payer Medicare 2022 Unknown 1959 Medicare [id number] 1957 Unknown [id number] 1947 Unknown [id number] 2.16.84 0.1.387777.3.579.2.59 1947 Unknown [id number] 2.16.84 0.1.601287.3.579.2.593 1947 Unknown [id number] 2.16.84 0.1.431004.3.579.2.593 1947 Unknown [id number] 2.16.84 0.1.380810.3.579.2.593 1947 Unknown [id number] 2.16.84 0.1.967621.3.579.2.593 1947 Unknown [id number] 2.16.84 0.1.569201.3.579.2.593 1947 Unknown [id number] 2.16.84 0.1.436217.3.579.2.593 1947 Unknown [id number] 2.16.84 0.1.135717.3.579.2.593 1947 Unknown [id number] 2.16.84 0.1.049884.3.579.2.593 1947 Unknown [id number] 2.16.84 0.1.954506.3.579.2.593 1947 Unknown [id number] 2.16.84 0.1.113169.3.579.2.593 1947 Unknown [id number] 2.16.84 0.1.551758.3.579.2.593 1947 Unknown [id number] 2.16.84 0.1.313627.3.579.2.593 1947 Unknown [id number] 2.16.84 0.1.335757.3.579.2.593 1947 Unknown [id number] 2.16.84 0.1.165365.3.579.2.593 1947 Unknown [id number] 2.16.84 0.1.679465.3.579.2.593 1947 Unknown [id number] 2.16.84 0.1.862096.3.579.2.593 1947 Unknown [id number] 2.16.84 0.1.943719.3.579.2.593 1947 Unknown [id number] 2.16.84 0.1.820331.3.579.2.593 1947 Unknown [id number] 2.16.84 0.1.921598.3.579.2.593 1947 Unknown [id number] 2.16.84 0.1.714433.3.579.2.593 1947 Unknown [id number] 2.16.84 0.1.134086.3.579.2.1259 1947 Unknown [id number] 2.16.8 40.1.086612.3.579.2.727 1947 Unknown [id number] 2.16.8 40.1.615153.3.579.2.727 1947 Unknown [id number] 2.16.8 40.1.853584.3.579.2.727 1947 Unknown [id number] 2.16.8 40.1.021720.3.579.2.727 1947 Unknown [id number] 2.16.8 40.1.566139.3.579.2.727 1947 Unknown [id number] 2.16.8 40.1.362363.3.579.2.727 1947 Unknown [id number] 2.16.8 40.1.245815.3.579.2.727 1947 Unknown [id number] 2.16.8 40.1.645205.3.579.2.727 1947 Unknown [id number] 2.16 840.1.597970.3.579.2.196 1947 Unknown [id number] 2.16 840.1.751677.3.579.2.196 1947 Unknown [id number] 2.16 840.1.725008.3.579.2.196 1947 Unknown [id number] 2.16 840.1.674095.3.579.2.196 1947 Unknown [id number] 2.16 840.1.927134.3.579.2.196 1947 Unknown [id number] 2.16 840.1.518429.3.579.2.196 Social History Date Type Detail Facility Tobacco smoking stat [facility] Unknown if ever smoked [facility] Sex Assigned At Not on file [facility] Start: 02-03-2021 End: 09-26-2023 Tobacco smoking status Ex-smoker (finding) [facility] Sex Assigned At Female [facility] Tobacco smoking status Never [facility] Functional Status Date Assessment Result Facility 09-26-2023 Functional Status N/A [facility] 08-28-2023 Functional Status N/A [facility] 06-05-2023 Functional Status N/A [facility] 04-12-2023 Functional Status N/A [facility] 04-12-2023 Functional Status [facility] 06-21-2022 Functional Status N/A [facility] Clinical Notes 01-12-2013 to 09-26-2023 Note Date & Type Note Facility 09-26-2023 Hospital Discharg e instructions Patient Education 09/26/2023 16:04:24 Botulinum Toxin Bladder Injection Botulinum Toxin Bladder Injection A botulinum toxin bladder injection is a procedure to treat an overactive bladder. During the procedure, a drug called botulinum toxin is injected into the bladder through a long, thin needle. This drug relaxes the bladder muscles and reduces overactivity. You may need this procedure if your medicines are not working or you cannot take them. The procedure may be repeated as needed. The treatment is done once and it usually lasts for 6 months. Your health care provider will monitor you to see how well you respond. Tell a health care provider about: Any allergies you have. All medicines you are taking, including vitamins, herbs, eye drops, creams, and kixc-hig-igdudcs medicines. Any problems you or family members have had with anesthetic medicines. Any bleeding problems you have. Any surgeries you have had. Any medical conditions you have. Any previous reactions to a botulinum toxin injection. Any symptoms of urinary tract infection. These include chills, fever, a burning feeling when passing urine, and needing to pass urine often. Whether you are or may be . What are the risks? Generally this is a safe procedure. However, problems may occur, including: Not being able to pass urine. If this happens, you may need to have your bladder emptied with a thin tube (urinary catheter). Bleeding. Urinary tract infection. Allergic reaction to the botulinum toxin. Pain or burning when passing urine. Damage to nearby structures or organs. What happens before the procedure? When to stop eating and drinking Follow instructions from your health care provider about what you may eat and drink before your procedure. These may include: 8 hours before the procedure ?Stop eating most foods. Do not eat meat, fried foods, or fatty foods. ?Eat only light foods, such as toast or crackers. ?All liquids are okay except energy drinks and alcohol. 6 hours before the procedure ?Stop eating. ?Drink only clear liquids, such as water, clear fruit juice, black coffee, plain tea, and sports drinks. ?Do not drink energy drinks or alcohol. 2 hours before the procedure ?Stop drinking all liquids. ?You may be allowed to take medicines with small sips of water. If you do not follow your health care provider's instructions, your procedure may be delayed or canceled. Medicines Ask your health care provider about: Changing or stopping your regular medicines. This is especially important if you are taking diabetes medicines or blood thinners. Taking medicines such as aspirin and ibuprofen. These medicines can thin your blood. Do not take these medicines unless your health care provider tells you to take them. Taking fhvm-jgv-gitswfy medicines, vitamins, herbs, and supplements. General instructions Ask your health care provider what steps will be taken to help prevent infection. These steps may include: ?Removing hair at the procedure site. ?Washing skin with a germ-killing soap. ?Taking antibiotic medicine. If you will be going home right after the procedure, plan to have a responsible adult: ?Take you home from the hospital or clinic. You will not be allowed to drive. ?Care for you for the time you are told. What happens during the procedure? You will be asked to empty your bladder. An IV will be inserted into one of your veins. You will be given one or more of the following: ?A medicine to help you relax (sedative). ?A medicine to numb the area (local anesthetic). ?A medicine to make you fall asleep (general anesthetic). A long, thin scope called a cystoscope will be passed into your bladder through the part of the body that carries urine from your bladder (urethra). The cystoscope will be used to fill your bladder with water. A long needle will be passed through the cystoscope and into the bladder. The botulinum toxin will be injected into your bladder. It may be injected into multiple areas of your bladder. The cystoscope will be removed and your bladder will be emptied with a urinary catheter. The procedure may vary among health care providers and hospitals. What can I expect after the procedure? After your procedure, it is common to have: Blood-tinged urine. Burning or soreness when you pass urine. Follow these instructions at home: Medicines Take hpkr-tkg-cdjzcgr and prescription medicines only as told by your health care provider. If you were prescribed an antibiotic medicine, take it as told by your health care provider. Do not stop using the antibiotic even if you start to feel better. General instructions If you were given a sedative during the procedure, it can affect you for several hours. Do not drive or operate machinery until your health care provider says that it is safe. Drink enough fluid to keep your urine pale yellow. Return to your normal activities as told by your health care provider. Ask your health care provider what activities are safe for you. Keep all follow-up visits. Contact a health care provider if you have: A fever or chills. Blood-tinged urine for more than one day after your procedure. Worsening pain or burning when you pass urine. Pain or burning when passing urine for more than two days after your procedure. Trouble emptying your bladder. Get help right away if you: Have bright red blood in your urine. Are unable to pass urine. Summary A botulinum toxin bladder injection is a procedure to treat an overactive bladder. This is generally a safe procedure. However, problems may occur, including not being able to pass urine, bleeding, infection, pain, and an allergic reaction to the botulinum toxin. You will be told when to stop eating and drinking, and what medicines to change or stop. Follow instructions carefully. After the procedure, it is common to have blood in your urine and to have soreness or burning when passing urine. Contact a health care provider if you have a fever, blood in your urine for more than a few days, or trouble passing urine. Get help right away if you have bright red blood in your urine, or if you are unable to pass urine. This information is not intended to replace advice given to you by your health care provider. Make sure you discuss any questions you have with your health care provider. Document Revised: 11/04/2021 Document Reviewed: 11/04/2021 [employer] Patient Education 2022 [employer]. Follow Up Care 08/30/2023 10:04:37 With:BRENDA MARIN PA-C, URL Address: [address] [place] [address] [phone] When: Unknown Comments:flaquita dietz MD [facility] You 08-28-2023 Hospital Discharg e instructions Patient Education [...] your health care provider. General instructions Take fcgp-xoq-phrxnof and prescription medicines only as told by [...] provider. Document Revised: 01/17/2021 Document Reviewed: 01/17/2021 [employer] Patient Education 2022 [employer]Touch. Follow Up Care 07/23/2023 14:35:57 With:BRENDA MARIN PA-C, URL Address: [address] [place] [address]. [place] [address] Business (1) When:6 weeks [facility] [place] 07-23-2023 Note [id number] [facility] 07-23-2023 Note Cystoscopy with Uret hral [...] you have a fever over 100 degrees [facility] 07-23-2023 Hospital Discharg e instructions Patient [...] Up Care 06/11/2023 13:39:28 With:BRENDA MARIN Address: [address] [place] [address] [place] [address] Business (1) When: Unknown Comments:Call for followup appointment with Georgette Marin PA-c within the next 2 months or so to monitor you. Please finish your antibiotics and have a great day. [facility] 06-20-2023 Evaluation note Encounter Date Diagnosis Assessment Notes Jun, Essential (primary) hypertension (ICD-10 - I10) [employer] Other 01-23-2024 Hospital Discharge instructions Patient Education [...] reconstructed. Follow these instructions at home: Take retx-yhw-kkpkvxx and prescription medicines only as told by [...] provider. Document Revised: 03/07/2022 Document Reviewed: 03/07/2022 [employer] Patient Education 2022 [employer]Touch. Follow Up Care 06/21/2022 15:14:52 With:CEZAR BERNAL, Cayden Hollins, URL Address: [address] [place] [address] [place], [place] [id number]- When: Unknown [facility] 01-23-2024 Evaluation + Plan note Diagnostic Tests Pending * Urine Culture 06/05/23 [facility]12-18-2023 Evaluation note* Encounter Date Diagnosis Assessment Notes [...] symptoms. Any developing patterns. Stay well hydrated. [employer] Other 12-01-2023 NoteChief Complaint pt arrives via [facility] after being found outside by a neighbor without a shirt on. pt is a/o to self and place, not time. FSBS upon arrival 88. Pt was recently treated for UTI @[facility]. pt. denies fall, was found sitting down. History of Present Illness 78-year-old female with PMH reformed smoker, HTN, anxiety, depression, peripheral neuropathy, GERD, OAB, obesity. -Patient presented to the ED secondary to confusion. -Per ED physician patient was recently in [facility] and treated for a UTI on antibiotic, [...] Lymph Auto: 9.7 % Low (04/12/23 12:53:00) Barren Auto: 7.8 % (04/12/23 12:53:00) Eos Auto: 0.1 % (04/12/23 12:53:00) Basophil Auto: 0.4 % (04/12/23 12:53:00) Neutro Absolute: 12.4 E9/L High (04/12/23 12:53:00) Lymph Absolute: 1.5 E9/L (04/12/23 12:53:00) Barren Absolute: 1.2 E9/L High (04/12/23 12:53:00) Eos [...] 88 mg/dL (04/12/23 12:23:00) POC Device SN: [id number] (04/12/23 12:23:00) POC User ID: (more content not included)...[facility]Result Comment: Electronically Signed By: Radha TAYLOR\.br\Date and Time Signed: 04/12/23 16:29 EST\.br\Electronically Co-Signed By: Radha TAYLOR\.br\Date and Time Co-Signed: 04/12/23 16:37 EST\.br\Electronically Co-Signed By: Radha TAYLOR\.br\Date and Time Co-Signed: 04/12/23 16:58 EST\.br\Electronically Co-Signed By: Efrain Kurtz MD\.br\Date and Time Co-Signed: 04/13/23 16:43 [id number] NoteAdmission and Discharge Information Admitting Physician - [...] willbe reviewed and discussed with PCP or project control manager MD once the hospital transfer table operator is able to reach him/her. I [...] made to ensure accuracy, however, inadvertently computerized manager orange mistakes may be present. Significant Findings CT [...] clear. Ordering Provider: Abran Holguin Signed By: Jhonny BERNAL, Jae Ruby CT Spine Cervical w/o Contrast 04/12/23 13:52:42 IMPRESSION: NO FRACTURE OR EVIDENCE OF CERVICAL SPINE INJURY IDENTIFIED. EXAM: CT Spine Cervical w/o Contrast DATE: 04/12/2023 1:43 PM CLINICAL HISTORY: Pain after recent fall. COMPARISON: None available. TECHNIQUE: Spiral unenhanced images were obtained of the cervical spine, with routine reconst (more content not included)...[facility] on above:Result Comment: Electronically Signed By: Radha TAYLOR\.br\Date and Time Signed: 04/13/23 10:54 EST\.br\Electronically Co-Signed By: Radha TAYLOR\.br\Date and Time Co-Signed: 04/13/23 10:57 EST\.br\Electronically Co-Signed By: TITI MITCHELL Radha\.br\Date and Time Co-Signed: 04/13/23 10:58 EST\.br\Electronically Co-Signed By: Radha TAYLOR\.br\Date and Time Co-Signed: 04/13/23 10:59 EST\.br\Electronically Co- Signed By: Radha TAYLOR\.br\Date and Time Co-Signed: 04/13/23 13:55 EST\.br\Electronically Co-Signed By: Tessie BERNAL, [facility]\.br\Date and Time Co- Signed: 04/13/23 16:37 [id number] Evaluation + Plan noteExtracted from: Title:Discharge Note Author:Lauren TAYLOR nezulema Date:04/13/23 Hemodynamically stable resul ts Discharged to [...] cap(s), Oral, Daily With When Contact Information [facility] Additional Instructions: Call for followup appointment for anxiety/depression care. Gerald Nolasco Within [address] to [address], [place] [address]- Business (1) Additional Instructions: JEREMIAH REED Within 2 to 4 days [address] [place], [place] [address] [facility] (1) Additional Instructions: Confusion Extracted from: Title:Consult Note-neurology Author:Rik ALVARES N garrett Date:04/13/23 ASSESSMENT: 1. Acute confusional state. May [...] deep vein thrombosis (DVT) prophylaxis (Z79.899: Other correction (current) drug therapy) Depression, unspecified (F32.A: Depression, unspecified) Extracted from: Title:ED Note Author:Abran Holguin DO Date:1 06/12/22 1. AMS (altered mental statu s) [...] deep vein thrombosis (DVT) prophylaxis (Z79.899: Other correction (current) drug therapy) Depression, unspecified (F32.A: Depression, [...] View Extracted from: Title:Admission H & P Author:WALLS AGACNP-BC, R enee Date:04/12/23 1. AMS (altered mental statu [...] Cr - unknown - awaiting records from [facility] -Renal US & PVR - if [...] deep vein thrombosis (DVT) prophylaxis (Z79.899: Other correction (current) drug therapy) -Heparin sq with early [...] made to ensure accuracy, however, inadvertently computerized manager orange mistakes may be present. 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 Medicines Take timv-asp-nmhxwsb and prescription medicines only as told by [...] consider day care, extended-care programs, or a long term facility. The person's health care provider may [...] provider. Document Revised: 08/24/2020 Document Reviewed: 08/24/2020 [employer] Patient Education 2022 [employer]Touch. Follow Up Care 04/12/2023 12:15:50 With:Ehsan Blair MD, NEU Address: [address] [address]- When:1 to 2 weeks Comments:This office is closed on Fridays. Please call the office on Sunday April 16, 2023 for a follow upappiontment. Thank you. With:JEREMIAH REED Address: [facility] [place] [address]- [facility] (1) When:2 to 4 days Comments:Call for followup appointment With:[facility] Address:Unknown When: Unknown Comments:Call for followup appointment for anxiety/depression care. [facility]12-01-2023 NotePT Evaluation done this date. Pt. with on AM-PAC this date. Recommend she use FWW for gait aswith cane she reaches for objects to hang onto with other hand. Will likely benefit from home health PT.[facility]11-17-2023 Evaluation note* Encounter Date Diagnosis Assessment Notes Treatment Notes Treatment Clinical Notes Mar, Colon cancer screening (ICD-10 - Z12.11) [employer] Other 11-16-2023 Evaluation note* Encounter Date Diagnosis Assessment Notes Treatment Notes Treatment Clinical Notes Mar, Generalized weakness (ICD-10 - R53.1) Followup as scheduled w ortho and PT Mar, COPD, moderate (ICD-10 - J44.9) continue present medication reviewed ER report from observation status [employer] Other 03-30-2023 NoteCONSULTATION CONSULTATION DATE: 08/10/2022 TO: [...] or sooner if needed. [facility] [id number] NoteCONSULTATION PROCEDURE DATE: 08/10/2022 PROCEDURE: Right suprascapular [...] her pain symptoms post procedurally.[facility] [id number] Hospital Discharge instructions Patient Education 06/21/2022 14:35:24 [...] fried and sweet foods. General instructions Take logz-jvx-atvpodz and prescription medicines only as told by [...] 02/24/2010 Document Revised: 08/21/2019 Document Reviewed: 05/16/2018 [employer] Patient Education 2020 [employer]Touch. Follow Up Care 05/19/2021 14:10:29 With:MIAH ROE, BRENDA Poole, URL Address: [address] [place] [place] [address] When: Unknown [facility] 12-29-2022 NoteCONSULTATION CONSULTATION DATE: 05/11/2022 HISTORY [...] the diclofenac. 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 [...] months' time unless otherwise indicated.[facility] [id number] NoteCONSULTATION CONSULTATION DATE: 02/23/2022 This is a [...] months' time unless otherwise indicated.[facility] [id number] NoteCONSULTATION CONSULTATION DATE: 01/08/2022 HISTORY OF PRESENT [...] in the office post procedure.[facility] [id number] Note CONSULTATION CONSULTATION DATE: 12/07/2021 HISTORY OF [...] would like to proceed. [facility] [id number] History general Narrative - Reported* Type Description Date Medical History Chronic back pain Medical History HTN Medical History anxiety Medical History DJD Medical History osteoporosis Surgical History Lumbar laminectomy and fusion Surgical History Hysterectomy (spared L ovary) Surgical History Landaverde's neuroma Hospitalization History For surgery as above Hospitalization History [facility] 03/2023 [facility] [employer] Other Evaluation + Plan note Future Appointments Appointment Date:06/26/2023 02:30:00 PM Scheduled Provider:BRENDA MARIN PA-C Location:[facility] Appointment Type:URO Office Visit [facility] evaluation + Plan note Future Appointments Appointment Date:08/28/2023 03:00:00 PM Scheduled Provider:BRENDA MARIN PA-C Location:[facility] Appointment Type:URO [facility] noteNo InformationN[facility]Well[facility] [employer] Other Hospital course Narrative No data available for this section [facility] Hospital Discharge instructions No data available for this section [facility] CenterProgress note No data available for this section [facility] Summary Purpose Family History No Family History Records Found No data available for this section No data available for this section No data available for this section No data available for this section No data available for this section No Family History Records FoundNo Family History Records FoundNo Family History Records Found No data available for this section Advance Directives No Advanced Directives Records FoundNo Advanced Directives Records FoundNo Advanced Directives Records FoundNo Advanced Directives Records Found Additional Source Comments Reason for Visit (unrecogniz ed section and content) Reason Comments Medication Refill Patient Care team informatio n (unrecognized section and content) Personnel Name: JEREMIAH REED MD Address: Address: [address] [place] [address] Personnel Name: JEREMIAH REED MD Address: Address: [address] [place] [address] Personnel Name: JEREMIAH REED MD Address: Address: [address] [place] [address] Personnel Name: JEREMIAH REED MD Address: Address: [address] [place] [address] Personnel Name: JEREMIAH REED MD Address: Address: [address] [place] [address] Personnel Name: JEREMIAH REED MD Address: Address: [address] [place] [address] Personnel Name: JEREMIAH REED MD Address: Address: [address] [place] [address] INFORMATION SOURCE (unrecogn ized section and content) DATE CREATED AUTHOR 09/08/2022 [facility] DATE CREATED AUTHOR AUTHOR'S ORGANIZ ATION 09/01/2023 [facility] DATE CREATED AUTHOR AUTHOR'S ORGANIZ ATION 09/12/2023 [facility] DATE CREATED AUTHOR AUTHOR'S ORGANIZ ATION 09/23/2023 [facility] FOR RECORDS PERTAINING TO PATIENTS WHO ARE [...] BE BASED ON THE PRIMARY CLINICAL RECORDS. [facility] [employer] [facility]. provides no warranty or guarantee of the accuracy or completeness of information in this document.
--- NOTE | 2023-09-27 13:51 | PM.CN ---
Consult Note: HPI Data of Consult Patient: known to practice within the last 3 years Requesting Physician: Sheri Lozano NP Primary Care Provider: Tierra Newell MD Consult Narrative Reason for consult: f/u Narrative: Jing Hoffmann a pleasant 78 year old female presents for evaluation and management of chronic neck and low back pain. Patient reporting moderate to severe low back pain without radiculopathy, greater than 3 months unresponsive to HEP and conservative medications. Patient has a hx of successful lumbar RFAs. Patient reports her low back pain is severe and more bothersome than her neck. Pain today 5-6/10 aching sharp increasing to 8/10 with activity, standing, walking, pushing, pulling, ADLS. Pain improved with heat, lying, and sitting. Patient recently underwent bilateral L4-5 L5-S1 MBB #1 with >80% improvement in pain and functional ability, increased ability to ambulate and do housework the first few hours following the injection. cc:: CC: Sheri Lozano NP Review of Systems ROS Status of ROS 10 or more systems reviewed and unremarkable except as noted in history and below Musculoskeletal Reports: back pain and neck pain PFSH PFSH Medical History COPD (chronic obstructive pulmonary disease) ?J44.9 - Chronic obstructive pulmonary disease, unspecified (ICD-10) GERD (gastroesophageal reflux disease) ?K21.9 - Gastro-esophageal reflux disease without esophagitis (ICD-10) Chronic pain ?G89.29 - Other chronic pain (ICD-10) Anxiety ?F41.9 - Anxiety disorder, unspecified (ICD-10) HTN (hypertension) ?I10 - Essential (primary) hypertension (ICD-10) Chronic prescription opiate use ?Z79.891 - retirement (current) use of opiate analgesic (ICD-10) Shoulder arthritis ?M19.019 - Primary osteoarthritis, unspecified shoulder (ICD-10) Cervical spondylosis ?M47.812 - Spondylosis without myelopathy or radiculopathy, cervical region (ICD-10) Surgical History History of lumpectomy of left breast ?Z98.890 - Other specified postprocedural states (ICD-10) History of back surgery ?Z98.890 - Other specified postprocedural states (ICD-10) History of hysterectomy ?Z90.710 - Acquired absence of both cervix and uterus (ICD-10) Family History Mother Family history of cancer Father Family history of stroke Grandfather Family history of stroke Social History Within the past year, how often did you have a drink containing alcohol: never Score interpretation: A score less than 3 is consistent with normal alcohol consumption. Smoking status: Former smoker Non-prescribed substance use: denies use Previous occupational history: retired Highest level of school completed/degree received: high school graduate Are you now , , , , never or living with a partner: Little interest or pleasure in doing things: not at all Feeling down, depressed, or hopeless: not at all Feel stressed/tense/nervous/anxious/difficulty sleeping: not at all Do you think of yourself as: straight/heterosexual Gender Identity: female Meds Home Medications and Allergies Home Medications ?Medication ?Instructions ?Recorded ?Confirmed ?Type multivitamin 1 tab PO DAILY 10/26/22 09/17/23 History nortriptyline 25 mg capsule 25 mg PO DAILY 10/26/22 09/17/23 History omeprazole 40 mg capsule,delayed 40 mg PO DAILY 10/26/22 09/17/23 History release calcium carbonate (Calcium 600) 600 mg PO DAILY 03/21/23 09/17/23 History melatonin 1 tab PO .QHS PRN sleep 03/21/23 09/17/23 History meloxicam 15 mg tablet 15 mg PO DAILY 03/21/23 09/17/23 History gabapentin 300 mg capsule 300 mg PO TID #270 caps 06/07/23 09/17/23 Rx baclofen 10 mg tablet 5 mg PO TID PRN muscle spasm 07/19/23 09/17/23 History oxycodone-acetaminophen 5 mg-325 1 tab PO BID PRN pain #60 tabs 08/13/23 Rx mg tablet (Percocet) acetaminophen 325 mg tablet 650 mg PO Q6H PRN pain 08/30/23 09/17/23 History amlodipine 2.5 mg tablet 2.5 mg PO DAILY 08/30/23 09/17/23 History aspirin 81 mg tablet,delayed 81 mg PO DAILY 08/30/23 09/17/23 History release glucosamine sulfate 500 mg tablet 500 mg PO BID 08/30/23 09/17/23 History (Glucosamine) oxycodone-acetaminophen 5 mg-325 1 tab PO TID PRN pain 08/30/23 09/17/23 History mg tablet (Percocet) oxycodone-acetaminophen 5 mg-325 1 tab PO TID PRN pain #90 tabs 09/19/23 Rx mg tablet (Percocet) Allergies Allergy/AdvReac Type Severity Reaction Status Date / Time No Known Drug Allergies Allergy Verified 09/17/23 07:48 Exam Constitutional Documenting provider has reviewed patient's vital signs: yes Common normals: no apparent distress, oriented x3, healthy appearing, alert and well nourished General appearance: cooperative HENCO Common normals: normocephalic, hearing grossly normal bilaterally and moist oral mucous membranes Head and scalp: normocephalic Eye Common normals: PERRL Pupil: PERRL Neck & C-Spine Common normals: full ROM General: normal visual inspection Cervical spine: pain with cervical ROM Other: axial neck pain improved, patient continues to have right shoulder pain and weakness of right arm negative spurlings sensation intact and equal to BUE Chest Common normals: inspection of chest normal Respiratory Common normals: normal respiratory effort, no retractions and no use of accessory muscles Back & Pelvis Lumbar spine/lower back: ROM limited, pain with ROM and straight leg raise negative bilaterally Sacroiliac joints: SI joints normal Other: positive facet loading tenderness over bilateral L4-S1 facets negative radiculopathy strength 5/5 in BLE Extremity Common normals: normal to inspection Right upper extremity: shoulder joint (pain and limited ROM, tender to touch) Other: limited ROM with abduction and overhead extension, unable to perform scratch test due to pain pain and tenderness to below noted areas Neuro Common normals: oriented x3, CN's II-XII intact bilaterally, moves all extremities, no focal motor deficits, no sensory deficits noted and deep tendon reflexes 2+ bilaterally Sensorium/orientation: alert Motor exam: strength 5/5 throughout and no movement abnormalities noted Psych Common normals: mental status grossly normal, thought process normal, cooperative, affect normal, speech normal and activity/motor behavior normal Speech: normal speech Thought process: normal thought process Results Additional Findings Additional findings: If on a controlled substance or opioids, I have checked an [place]AR[place] report on this patient and there are no aberrancies noted in the prescribing history.??If on a controlled substance or opioid a drug screen was completed and reviewed within the last year, and if there has not been a drug screen completed we ordered one today to monitor higher risk, state monitored pain medication use. As part of providing excellent, safe, comprehensive care, the following was completed at our patient's visit: 1. A medication reconciliation and review to ensure accurate knowledge of current/active medications, including asking our patients to inform us about any [id number] medications or herbal remedies/nutritional supplements/alternative remedies. 2. A review to specifically ensure our patients have had annual screening for screening for depression, screening for tobacco use, and screening for unhealthy alcohol use. For concerning screenings had a discussion with the patient, provided patient education, and recommended follow-up with primary care provider when appropriate. If patient noted with a risk of falling, they received education on strength, gait, and balance training to prevent future risk of falling. Assessment and Plan Assessment and Plan (1) Lumbar spondylosis: (2) Cervical spondylosis: (3) Cervical radiculopathy: (4) Primary osteoarthritis, right shoulder: (5) Tendinopathy of right shoulder: (6) Chronic prescription opiate use: Assessment and Plan: I feel these medications are improving the patient's quality of life and allow them to tolerate activities of daily living as well as participate in recreational activity.? The patient does not report intolerable side effects. The patient is NOT opioid naive and non-pharmacologic and non-opioid treatment has failed to significantly relieve the patient's pain and improve functionality. The patient has a diagnosis that is related to a somatic or visceral pain etiology. ? ?? I reviewed with the patient the potential risks and side effects with the use of? opioid medications including but not limited to respiratory depression,? sedation, and even . I verified the patient has access to naloxone should? these effects occur. I advised the patient to avoid the use of any other? sedation substances including alcohol, THC, and benzodiazepines while? taking opioid medications due to the risk of compounding side effects and? detrimental outcomes. 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 drug screen, and opioid start talking forms. The patient was advised to let? their family know they had Naloxone in case they would need to administer? the medication.? ?? A drug screen was completed within the last year, and no aberrancies were noted regarding their use of controlled substances. The patient understands they are subject to the terms and conditions of the pain contract that they have signed. ? ?? I have checked an [place]AR[place] report on this patient today and there are no aberrancies noted in the prescribing history.? Plan bilateral L4-5 L5-S1 medial branch block x2 working towards RFA continue percocet 5-325mg TID PRN moderate to severe pain continue baclofen to 5mg TID PRN myofascial pain continue gabapentin 300mg AM and 600mg HS continue nortriptyline 35mg hs risks vs benefits of current medication regimen reviewed and discussed, patient continues to find functional improvement and pain relief with current regimen continue f/u with Dr Malhotra for right shoulder pain/injection therapy plan for future right C5-6 C6-7 TFESI, declining NS evaluation. Prior cervical MRI showing moderate to severe degenerative changes and stenosis f/u after injection
== END 2023-09-27 13:20 | disposition home or self-care (01) ==
LOC: PM 13:20
PROVIDERS: PCP Family Medicine; Visit Provider Nurse Practitioner
DX: M47.816 Spondylosis without myelopathy or radiculopathy, lumbar region (principal); M47.812 Spondylosis without myelopathy or radiculopathy, cervical region; M54.12 Radiculopathy, cervical region; M19.011 Primary osteoarthritis, right shoulder; M77.8 Other enthesopathies, not elsewhere classified; Z79.891 Long term (current) use of opiate analgesic
CPT/HCPCS: G0463

== ENCOUNTER 2023-10-15 10:38 | Day surgery (SDC) | payer MEDICARE, OTHER, SELFPAY ==
[2023-10-15 11:15] VITALS: BP 130/77; PULSE 84; TEMP 36.2; O2SAT 98
[2023-10-15] MEDS: LIDOCAINE HCL 2% PF 100 MG/5 ML VIAL INJ (11:36)
[2023-10-15] MEDS: BUPIVACAINE HCL 0.25% PF 25 MG/10 ML VIAL INJ (11:36)
[2023-10-15 11:37] VITALS: PULSE 84; O2SAT 96
--- NOTE | 2023-10-15 11:39 | P.ON_ITS ---
Date of procedure: 10/15/23 Pre-op diagnosis: Lumbar spondylosis without myelopathy Post-op diagnosis: same as pre-op Procedure: Procedure: Bilateral L4-5, L5-S1 medial branch block Medications: Bupivacaine 0.25% 6cc The patient was seen and examined in the preoperative holding area.? An informed consent was obtained and placed on the chart.? The patient was brought to the medical procedure unit and placed in the prone position.? A timeout was completed verifying correct patient, procedure site, positioning, plan, and special equipment.? Using aseptic technique, the needle was placed at left L4. Under direct fluoroscopic visualization a Quincke-tipped spinal needle was ad vanced to the junction of the superior articulating process with the transverse process at the designated medial branch segment.? Preceded by negative aspiration, the above-mentioned injectate was placed in 1 mL aliquots.? The procedure was repeated at left L5, S1.? The needle was removed and insertion site was covered. The same procedure, at the same levels, was completed on the right side. The patient was taken to the postprocedural recovery area and monitored for an appropriate length of time before found suitable for discharge in the company of a responsible adult. Anesthesia: Local Surgeon: Drake Delatorre Pathology: none sent Condition: stable Disposition: no change
[2023-10-15 11:41] VITALS: BP 169/79; BP 172/81
== END 2023-10-15 11:48 | disposition home or self-care (01) ==
LOC: SURGOUT 10:39
PROVIDERS: PCP Family Medicine; Visit Provider Anesthesiology
DX: M47.816 Spondylosis without myelopathy or radiculopathy, lumbar region (principal); Z79.899 Other long term (current) drug therapy
CPT/HCPCS: 64493; 64494; 82948

== ENCOUNTER 2023-10-17 13:37 | Outpatient (OUT) | payer MEDICARE, OTHER, SELFPAY ==
--- NOTE | 2023-10-17 13:47 | PM.CN ---
Consult Note: HPI Data of Consult Patient: known to practice within the last 3 years Requesting Physician: Sheri Lozano NP Primary Care Provider: Tierra Newell MD Consult Narrative Reason for consult: f/u Narrative: Jing Hoffmann a pleasant 78 year old female presents for evaluation and management of chronic neck and low back pain. Patient reporting moderate to severe low back pain without radiculopathy, greater than 3 months unresponsive to HEP and conservative medications. Patient has a hx of successful lumbar RFAs. Patient reports her low back pain is severe and more bothersome than her neck. Pain today 5-6/10 aching sharp increasing to 8/10 with activity, standing, walking, pushing, pulling, ADLS. Pain improved with heat, lying, and sitting. Patient recently underwent bilateral L4-5 L5-S1 MBB #2 with >80% improvement in pain and functional ability, increased ability to ambulate and do housework the first few hours following the injection. cc:: CC: Sheri Lozano NP Review of Systems ROS Status of ROS 10 or more systems reviewed and unremarkable except as noted in history and below Musculoskeletal Reports: back pain and neck pain PFSH PFSH Medical History COPD (chronic obstructive pulmonary disease) ?J44.9 - Chronic obstructive pulmonary disease, unspecified (ICD-10) GERD (gastroesophageal reflux disease) ?K21.9 - Gastro-esophageal reflux disease without esophagitis (ICD-10) Chronic pain ?G89.29 - Other chronic pain (ICD-10) Anxiety ?F41.9 - Anxiety disorder, unspecified (ICD-10) HTN (hypertension) ?I10 - Essential (primary) hypertension (ICD-10) Chronic prescription opiate use ?Z79.891 - half-way (current) use of opiate analgesic (ICD-10) Shoulder arthritis ?M19.019 - Primary osteoarthritis, unspecified shoulder (ICD-10) Cervical spondylosis ?M47.812 - Spondylosis without myelopathy or radiculopathy, cervical region (ICD-10) Surgical History History of lumpectomy of left breast ?Z98.890 - Other specified postprocedural states (ICD-10) History of back surgery ?Z98.890 - Other specified postprocedural states (ICD-10) History of hysterectomy ?Z90.710 - Acquired absence of both cervix and uterus (ICD-10) Family History Mother Family history of cancer Father Family history of stroke Grandfather Family history of stroke Social History Within the past year, how often did you have a drink containing alcohol: never Score interpretation: A score less than 3 is consistent with normal alcohol consumption. Smoking status: Former smoker Non-prescribed substance use: denies use Previous occupational history: retired Highest level of school completed/degree received: high school graduate Are you now , , , , never or living with a partner: Little interest or pleasure in doing things: not at all Feeling down, depressed, or hopeless: not at all Feel stressed/tense/nervous/anxious/difficulty sleeping: not at all Do you think of yourself as: straight/heterosexual Gender Identity: female Meds Home Medications and Allergies Home Medications ?Medication ?Instructions ?Recorded ?Confirmed ?Type multivitamin 1 tab PO DAILY 10/26/22 10/15/23 History nortriptyline 25 mg capsule 25 mg PO DAILY 10/26/22 10/15/23 History omeprazole 40 mg capsule,delayed 40 mg PO DAILY 10/26/22 10/15/23 History release calcium carbonate (Calcium 600) 600 mg PO DAILY 03/21/23 10/15/23 History melatonin 1 tab PO .QHS PRN sleep 03/21/23 10/15/23 History meloxicam 15 mg tablet 15 mg PO DAILY 03/21/23 10/15/23 History gabapentin 300 mg capsule 300 mg PO TID #270 caps 06/07/23 10/15/23 Rx baclofen 10 mg tablet 5 mg PO TID PRN muscle spasm 07/19/23 10/15/23 History acetaminophen 325 mg tablet 650 mg PO Q6H PRN pain 08/30/23 10/15/23 History amlodipine 2.5 mg tablet 2.5 mg PO DAILY 08/30/23 10/15/23 History aspirin 81 mg tablet,delayed 81 mg PO DAILY 08/30/23 10/15/23 History release glucosamine sulfate 500 mg tablet 500 mg PO BID 08/30/23 10/15/23 History (Glucosamine) oxycodone-acetaminophen 5 mg-325 1 tab PO TID PRN pain 08/30/23 10/15/23 History mg tablet (Percocet) nortriptyline 25 mg capsule 25 mg PO DAILY #90 caps 10/17/23 Rx oxycodone-acetaminophen 5 mg-325 1 tab PO TID PRN pain #90 tabs 10/17/23 Rx mg tablet (Percocet) Allergies Allergy/AdvReac Type Severity Reaction Status Date / Time No Known Drug Allergies Allergy Verified 10/15/23 11:17 Exam Constitutional Documenting provider has reviewed patient's vital signs: yes Common normals: no apparent distress, oriented x3, healthy appearing, alert and well nourished General appearance: cooperative HENMT Common normals: normocephalic, hearing grossly normal bilaterally and moist oral mucous membranes Head and scalp: normocephalic Eye Common normals: PERRL Pupil: PERRL Neck & C-Spine Common normals: full ROM General: normal visual inspection Cervical spine: pain with cervical ROM Other: axial neck pain improved, patient continues to have right shoulder pain and weakness of right arm negative spurlings sensation intact and equal to BUE Chest Common normals: inspection of chest normal Respiratory Common normals: normal respiratory effort, no retractions and no use of accessory muscles Back & Pelvis Lumbar spine/lower back: ROM limited, pain with ROM and straight leg raise negative bilaterally Sacroiliac joints: SI joints normal Other: positive facet loading tenderness over bilateral L4-S1 facets negative radiculopathy strength 5/5 in BLE Extremity Common normals: normal to inspection Right upper extremity: shoulder joint (pain and limited ROM, tender to touch) Other: limited ROM with abduction and overhead extension, unable to perform scratch test due to pain pain and tenderness to below noted areas Neuro Common normals: oriented x3, CN's II-XII intact bilaterally, moves all extremities, no focal motor deficits, no sensory deficits noted and deep tendon reflexes 2+ bilaterally Sensorium/orientation: alert Motor exam: strength 5/5 throughout and no movement abnormalities noted Psych Common normals: mental status grossly normal, thought process normal, cooperative, affect normal, speech normal and activity/motor behavior normal Speech: normal speech Thought process: normal thought process Results Additional Findings Additional findings: If on a controlled substance or opioids, I have checked an [place]AR[place] report on this patient and there are no aberrancies noted in the prescribing history.??If on a controlled substance or opioid a drug screen was completed and reviewed within the last year, and if there has not been a drug screen completed we ordered one today to monitor higher risk, state monitored pain medication use. As part of providing excellent, safe, comprehensive care, the following was completed at our patient's visit: 1. A medication reconciliation and review to ensure accurate knowledge of current/active medications, including asking our patients to inform us about any [id number] medications or herbal remedies/nutritional supplements/alternative remedies. 2. A review to specifically ensure our patients have had annual screening for screening for depression, screening for tobacco use, and screening for unhealthy alcohol use. For concerning screenings had a discussion with the patient, provided patient education, and recommended follow-up with primary care provider when appropriate. If patient noted with a risk of falling, they received education on strength, gait, and balance training to prevent future risk of falling. Assessment and Plan Assessment and Plan (1) Lumbar spondylosis: (2) Cervical spondylosis: (3) Cervical radiculopathy: (4) Primary osteoarthritis, right shoulder: (5) Tendinopathy of right shoulder: (6) Chronic prescription opiate use: Assessment and Plan: I feel these medications are improving the patient's quality of life and allow them to tolerate activities of daily living as well as participate in recreational activity.? The patient does not report intolerable side effects. The patient is NOT opioid naive and non-pharmacologic and non-opioid treatment has failed to significantly relieve the patient's pain and improve functionality. The patient has a diagnosis that is related to a somatic or visceral pain etiology. ? ?? I reviewed with the patient the potential risks and side effects with the use of? opioid medications including but not limited to respiratory depression,? sedation, and even . I verified the patient has access to naloxone should? these effects occur. I advised the patient to avoid the use of any other? sedation substances including alcohol, THC, and benzodiazepines while? taking opioid medications due to the risk of compounding side effects and? detrimental outcomes. I reviewed the THERAPEUTIC ACTIVITIES SERVICES WORKER, pain treatment agreement, urine? drug screen, and opioid start talking forms. The patient was advised to let? their family know they had Naloxone in case they would need to administer? the medication.? ?? A drug screen was completed within the last year, and no aberrancies were noted regarding their use of controlled substances. The patient understands they are subject to the terms and conditions of the pain contract that they have signed. ? ?? I have checked an [place]AR[place] report on this patient today and there are no aberrancies noted in the prescribing history.? Plan bilateral L4-5 L5-S1 medial branch RFA continue percocet 5-325mg TID PRN moderate to severe pain, decrease to BID PRN next fill (12/04) continue baclofen to 5mg TID PRN myofascial pain continue gabapentin 300mg AM and 600mg HS continue nortriptyline 35mg hs risks vs benefits of current medication regimen reviewed and discussed, patient continues to find functional improvement and pain relief with current regimen continue f/u with Dr Malhotra for right shoulder pain/injection therapy plan for future right C5-6 C6-7 TFESI, declining NS evaluation. Prior cervical MRI showing moderate to severe degenerative changes and stenosis f/u after injection
== END 2023-10-17 13:38 | disposition home or self-care (01) ==
PROVIDERS: PCP Family Medicine; Visit Provider Nurse Practitioner
DX: M47.816 Spondylosis without myelopathy or radiculopathy, lumbar region (principal); M47.812 Spondylosis without myelopathy or radiculopathy, cervical region; M54.12 Radiculopathy, cervical region; M19.011 Primary osteoarthritis, right shoulder; Z79.891 Long term (current) use of opiate analgesic
CPT/HCPCS: G0463

== ENCOUNTER 2023-10-29 08:46 | Day surgery (SDC) | payer MEDICARE, OTHER, SELFPAY ==
--- OUTSIDE RECORDS SUMMARY | 2023-10-29 08:50 | XMS_ITS | CCD ---
Author Organization [facility] Care Team Providers Care Greenkeeper Name Role Phone Unavailable Primary Care Provider JEREMIAH Arnold Primary Care Physician [phone] BRENT MALDONADO Consulting Unavailable LAKSHMIPATHY ., BARBARA Admitting Chelly vailable LAKSHMIPATHY ., BARBARA Attending Chelly vailable DEREK, DR JEREMIAH Poole Primary Care Unavailable LAKSHMIPATHY ., BARBARA Consulting Chelly vailable ALBERPATHY ., BARBARA Attending Chelly vailable TRICIA ., BARBARA Admitting Chelly vailable DEREK, DR JEREMIAH Poole Primary Care Unavailable REED, DR JEREMIAH Poole Primary Care Unavailable SAMSA ., LEANDRA Attending Unavailable SAMSA ., LEANDRA Admitting Unavailable SAMSA ., LEANDRA Consulting Unavailable PAUL, DR EHSAN Haskins Consulting Unavailable DEREK, DR JEREMIAH Poole Primary Care Unavailable REED, DR JEREMIAH Poole Attending Unavailable DEREK, DR JEREMIAH Poole Admitting Unavailable REED, DR JEREMIAH Poole Consulting Unavailable DEREK, DR JEREMIAH Poole Attending Unavailable DEREK, DR JEREMIAH Poole Primary Care Unavailable DEREK, DR JEREMIAH Poole Admitting Unavailable DEREK, DR JEREMIAH Poole Consulting Unavailable SHANNON, DR SHIREEN Jamil Admitting Unavailabl e SHANNON, DR SHIREEN Jamil Consulting Unavailabl e SHANNON, DR SHIREEN Jamil Attending Unavailabl e DEREK, DR JEREMIAH Poole Primary Care Unavailable SIMONA .TIO Consulting Unavailable ANIRUDH BARAHONA Consulting Unavailable ISAC CONNOR Consulting Unavailable GAYATRI, DR HARSHAL Lockhart Attending Unavailable GAYATRI, DR HARSHAL Lockhart Admitting Unavailable DEREK, DR JEREMIAH Poole Primary Care Unavailable NIESHA ., DR SAAB Consulting Unavailable AMITA ., DR MEGAN [...] RAMOS ., DR FELISHA Page Admitting Unavailable ZIDARYA, DR EHSAN Haskins Consulting Unavailable DEREK, DR [...] vailable LAKSHMIPATHY ., NARENDRANATH Admitting Chelly vailable REED, DR JEREMIAH Poole Primary Care Unavailable BRADYEBROYER, DR EHSAN Haskins Consulting Unavailable SAMSA ., LEANDRA Attending Unavailable DEREK, DR JEREMIAH Poole Referring Unavailable DEREK, DR JEREMIAH Poole Primary Care Unavailable SAMSA ., LEANDRA Admitting Unavailable SAMSA ., LEANDRA Consulting Unavailable DEREK, DR JEREMIAH Poole Primary Care Unavailable LAKSHMIPATHY ., NARENDRANATH Attending Chelly vailable LAKSHMIPATHY ., NARENDRANATH Admitting Chelly vailable Serena Tejeda Consulting Unavailable NAYAN .LINDSAY Consulting Unavailable DR PEYTON MORENO Consulting Unavailable SHANNON, DR SHIREEN Jamil Attending Unavailabl e REINECK, DR SHIREEN Jamil Admitting Unavailabl e REED, DR JEREMIAH Poole Primary Care Unavailable BRENT LONG Consulting Unavailable PAUL, DR EHSAN Haskins Consulting Unavailable LAKSHMIPATHY ., NARTAMIKA Attending Chelly vailable LAKSHMIPATHY ., NARGUERREROATH Admitting Chelly vailable REED, DR JEREMIAH Poole [...] JEREMIAH Poole Attending Unavailable Derek, Jeremiah Unavailable Ray Fofana Unavailable DIDIER MALDONADO Attending Unavailable MIAHBRENDA DAMICO Admitting Unavailable MIAHBRENDA DAMICO Attending Unavailable Moussnadja Ahmad Admitting Unavailable MoussDeny saezmad Attending Unavailable Harrison, Ehsan Consulting Unavailable Harrison, Ehsan Consulting Unavailable Harrison, Ehsan Consulting Unavailable Harrison, Ehsan Consulting Unavailable Harrison, Ehsan Consulting Unavailable Harrison, Ehsan Consulting Unavailable Harrison, Ehsan Consulting Unavailable Harrison, Ehsan Consulting Unavailable Harrison, Ehsan Consulting Unavailable MIAHBRENDA DAMICO Attending Unavailable MIAHBRENDA Attending Unavailable MIAH, BRENDA Poole Attending Unavailable MIAHBRENDA DAMICO Referring Unavailable MIAHBRENDA DAMICO Attending Unavailable Cayden ROBB Attending Unavailable Cayden ROBB Referring Unavailable Cayden ROBB Admitting Unavailable MIAHBRENDA DAMICO Admitting Unavailable MIAHBRENDA DAMICO Attending Unavailable Giedraitis , Andrius Jailyn Attending Unavailable Giedraitis , Andrius Vnella Attending Unavailable Giedraitis , Andrius Vytedwardo Attending Unavailable Giedraitis , Andrius Vytedwardo Attending Unavailable Giedraitis , Andrius Vytedwardo Attending Unavailable Giedraitis , Andrius Vytedwardo Attending Unavailable Giedraitis , Andrius Jailyn Attending Unavailable Allergies Allergy Classification Reported Allergen(s) Allergy Type Date of Onset Reaction(s) Facility (7 sources) patient allergy list reviewed by nurse or physicia Propensity to adverse reactions 9 Comment:Done Shahab P. Tabatabai, Broker Other (7 sources) Allergies Reconciled Propensity to adverse reactions Unknown Shahab P. Tabatabai, Broker Other Medications Current Medications Medication Drug Class(es) [...] Active oral daily for 30 *Reorder from [email or web address] for eRx and Interaction Alerts* Apr, Active Start: 02-11-2019 take 2 tablets by mo [facility] once daily amLODIPine 2.5 mg Tab 5 mg = 2 tab(s), Oral, Daily, # 90 tab(s), Refills(s) 0 Start Date: 02/11/19 Status: Ordered take 1 tablet by [facility] every twenty-four hours amLODIPine Besylate 5 MG [...] Entry Oral for 0 *Pick strength-form from [employer] for eRX* 30 Mar, 2022 Active Start: [...] afterwards, # 2 tab(s), Refills(s) 0, Pharmacy: [facility]/pharmacy #[id number], 165, cm, 06/05/23 12:57:00 EST, [...] for 0 duration 5 years *Reorder from [employer] for eRx and Interaction Alerts* Nov, Active [...] day(s), # 30 tab(s), Refills(s) 11, Pharmacy: [facility]/pharmacy #[id number], 165, cm, 08/28/23 15:03:00 EDT, [...] day(s), # 30 tab(s), Refills(s) 11, Pharmacy: [id number], 165, cm, 06/21/22 14:53:00 EST, Height/Length Dosing, 87, kg, 06/21/22 14:53:00 EST, Weight Dosing Start Date: 06/21/22 Stop Date: 06/16/23 Status: Ordered Tudorza Pressair 400mcg/actuat (7 sources) Start: 04-12-2022 take 1 puff(s) by inhalation twice daily Tudorza Pressair 400mcg/actuat Tudorza Pressair 400mcg/actuat, 1 (one) Puff BID # 1, 04/12/2022, Ref. x12. Active inhalation BID *Pick strength-form from [employer] for eRX* Mar, Active Start: 04-12-2022 take 1 puff(s) by in halation twice daily Tudorza Pressair 400mcg/actuat Tudorza Pressair 400mcg/actuat, 1 (one) Puff BID # 1, 04/12/2022, Ref. x12. Active inhalation BID for 30 *Pick strength-form from [employer] for eRX* 30 Mar, 2022 Active vibegron 75 MG Oral Tablet [Gemtesa] (1 source) Start: 08-28-2023 End: 08-22-2024 take 1 tablet by mouth once daily Gemtesa 75 mg oral tablet 75 mg = 1 tab(s), Oral, Daily, X 30 day(s), # 30 tab(s), Refills(s) 11, Pharmacy: [facility]/pharmacy #[id number], 165, cm, 08/28/23 15:03:00 EDT, [...] 02-25-2022 Episodic Other aftercare (1 source) Other skilled nursing (current) drug therapy; Translations: [[facility] CURRENT DRUG THERAPY] Onset: 01-09-2022 Episodic Other [...] Reference Range Facility Ambulatory Visit Summaryon 0 09-26-2023 Ambulatory Visit Summary AARON LEWIS :1945 Visit Date:09/26/2023 Ambulatory Visit Instructions Your Diagnosis OAB (overactive [...] Cap) glucosamine (glucosamine 500 mg Cap) melatonin meloxicam (meloxicam 15 mg Tab) multivitamin with minerals (Ocuvite) nortriptyline (nortriptyline 25 mg Cap) omeprazole (omeprazole 40 mg Cap-DR) Procedures Performed Cystourethroscopy with dilation of urethral stricture (07/23/2023), Cystourethroscopy with dilation of urethral stricture (06/16/2016), Appendectomy, Biopsy of breast, Hysterectomy. Discharge Vitals Heart Rate (Peripheral) 68 Respiratory Rate 16 Blood Pressure 132/84 Height 165 cm Height 65 in Weight 91 kg Weight 200.2 lb BMI 33.43 What to do next You Need to Schedule the Following Appointments Follow Up with MIAH ROE, CASSIE MAURICE When: Comments: flaquita kaplan/ Where: [address] [place] [address] [phone] Medications What How Much When Instructions Unchanged [...] prescribing physician if questions or concerns Unchanged calcium citrate (calcium (as calcium citrate) 200 mg oral tablet) 1 Tablets By Mouth 2 times a day Contact prescribing physician if questions or concerns Unchanged gabapentin (gabapentin 300 mg Cap) 1 Capsules By Mouth 3 times a day Contact prescribing physician if questions or concerns Unchanged glucosamine (glucosamine 500 mg Cap) 1 Capsules By Mouth 2 times a day Contact prescribing physician if questions or concerns Unchanged melatonin Once a day (at bedtime) Contact prescribing physician if questions or concerns Unchanged meloxicam (meloxicam 15 mg Tab) Contact prescribing physician if questions [...] choosing us for your care. Education Materials Botulinum Toxin Bladder Injection A botulinum toxin [...] respond. Tell a health care provider about: ? Any allergies you have. ? All medicines you are taking, including vitamins, herbs, eye drops, creams, and ulvo-rdm-pigwwwb medicines. ? Any problems you or family members have had with anesthetic medicines. ? Any bleeding problems you have. ? Any surgeries you have had. ? Any medical conditions you have. ? Any previous reactions to a botulinum toxin injection. ? Any symptoms of urinary tract infection. These include chills, fever, a burning feeling when passing urine, and needing to pass urine often. ? Whether you are or (more content not included)... [facility] Patient Educationon 09-26-19 Patient Education Urology Botulinum Toxin Bladder Injection A botulinum toxin [...] respond. Tell a health care provider about: ? Any allergies you have. ? All medicines you are taking, including vitamins, herbs, eye drops, creams, and waqw-qvx-gwsgqae medicines. ? Any problems you or family members have had with anesthetic medicines. ? Any bleeding problems you have. ? Any surgeries you have had. ? Any medical conditions you have. ? Any previous reactions to a botulinum toxin injection. ? Any symptoms of urinary tract infection. These include chills, fever, a burning feeling when passing urine, and needing to pass urine often. ? Whether you are or may be . What are the risks? Generally this is a safe procedure. However, problems may occur, including: ? Not being able to pass urine. If this happens, you may need to have your bladder emptied with a thin tube (urinary catheter). ? Bleeding. ? Urinary tract infection. ? Allergic reaction to the botulinum toxin. ? Pain or burning when passing urine. ? Damage to nearby structures or organs. What happens before the procedure? When to stop eating and drinking Follow instructions from your health care provider about what you may eat and drink before your procedure. These may include: ? 8 hours before the procedure ? Stop eating most foods. Do not eat meat, fried foods, or fatty foods. ? Eat only light foods, such as toast or crackers. ? All liquids are okay except energy drinks and alcohol. ? 6 hours before the procedure ? Stop eating. ? Drink only clear liquids, such as water, clear fruit juice, black coffee, plain tea, and sports drinks. ? Do not drink energy drinks or alcohol. ? 2 hours before the procedure ? Stop drinking all liquids. ? You may be allowed to take medicines with small sips of water. If you do not follow your health care provider's instructions, your procedure may be delayed or canceled. Medicines Ask your health care provider about: ? Changing or stopping your regular medicines. This is especially important if you are taking diabetes medicines or blood thinners. ? Taking medicines such as aspirin and ibuprofen. These medicines can thin your blood. Do not take these medicines unless your health care provider tells you to take them. ? Taking pxnp-lnn-uhtsojk medicines, vitamins, herbs, and supplements. General instructions ? Ask your health care provider what steps will be taken to help prevent infection. These steps may include: ? Removing hair at the procedure site. ? Washing skin with a germ-killing soap. ? Taking antibiotic medicine. ? If you will be going home right after the procedure, plan to have a responsible adult: ? Take you home from the hospital or clinic. You will not be allowed to drive. ? Care for you for the time you are told. What happens during the procedure? ? You will be asked to empty your bladder. ? An IV will be inserted into one of your veins. ? You will be given one or more of the following: ? A medicine to help you relax (sedative). ? A medicine to numb the area (local anesthetic). ? A medicine to make you fall asleep (general anesthetic). ? A long, thin scope called a cystoscope will be passed into your bladder through the part of the body that carries urine from your bladder (urethra). ? The cystoscope will be used to fill your bladder with water. ? A long needle will be passed through the cystoscope and into the bladder. ? The botulinum toxin will be injected into your bladder. It may be injected into multiple areas of your bladder. ? The cystoscope will be removed and your bladder will be emptied with a urinary catheter. The procedure may vary among health care providers and hospitals. What can I expect after the procedure? After your procedure, it is common to have: ? Blood-tinged urine. ? Burning or soreness when you pass urine. Follow these instructions at home: Medicines ? Take adkf-xmp-besnvtw and prescription medicines only as told by your health care provider. ? If you were prescribed an antibiotic medicine, take it as told by your health care provider. Do not stop using the antibiotic even if you start to feel better. General instructions ? If you were given a sedative during the procedure, it can affect you for several hours. Do not drive or operate machinery until your health ca (more content not included)... [facility] Urology Office/Clinic Noteon 09-26-2023 Urology Office/Clinic Note Chief Complaint Discuss Botox HPI Staff Last seen in our office 08/28/23 by CHATO DX: OAB, Urethral Stricture & Recurrent UTI Has failed several bladder meds & others have been too expensive. Here today to discuss possible Botox Tx Pt denies urinary incontinence. Has been getting up 3-4x/night to void. q90min during the day. Denies pain/burning and blood in urine. History of Present Illness staff HPI reviewed and agree. Review of Systems PHQ Score Initial Depression Screen Score: 0 SCORE no fever, chills, malaise, myalgia. no rash/lesions. no chest pain, palpitations, or SOB. no abdominal pain, nausea, vomiting. no unilateral calf swelling, redness, pain Physical Exam Vitals & Measurements HR: 68(Peripheral) RR: 16 BP: 132/84 HT: 65 in HT: 165 cm WT: 91 kg WT: 200.2 lb BMI: 33.43 General: nontoxic, NAD Mouth: moist mucosa Lungs: normal respiratory effort Cardio: regular rate, good distal perfusion Abdomen: nondistended, no suprapubic distention or tenderness, no CVA tenderness Neurologic: Grossly normal Skin: No rashes or suspicious lesions Assessment/Plan Prior DLS pt 1. OAB (overactive bladder) (N32.81: Overactive bladder) BBS (14), did not fill out today. Has failed Ditropan, Tolterodine, and Vesicare. Drinks 2-3 cans Diet Pepsi daily, unwilling/unable to change this. Does not leak. Very bothered by frequency/urgency/no cturia. Rx sent for Gemtesa/Myrbetriq at prior OV. However both options were cost prohibitive. Pt is interested in Botox. Discussed risks/benefits/proce dural details at length. Pt asked meaningful questions. Will schedule Botox. The procedural risks, benefits, details, and treatment alternatives have been discussed with the patient. These include bleeding, infection, continued problems with overactive bladder, inability to empty the bladder which could require an indwelling catheter or need for in/out catheterization to empty the bladder, and need for repeat procedures over time (usually lasts up to six months), as well as fatigue and insomnia, among others. There is a minimal risk of Botox entering the blood stream and causing neurological problems, which is quite rare. Full informed consent has been obtained. Will order Local anesthesia. 2. Urethral stricture (N35.919: Unspecified urethral stricture, male, unspecified site) S/p UD done 06/16/[address] Moreno. at ov May 2023 reported worsening freq/urge/noct despite no change in intake so we decided to repeat UD s/p UD 07/23/23 w [facility] - urethra tight at 18fr, bladder w moderate trabec no improvement in sx after UD. [1] 3. Recurrent UTI (N39.0: Urinary tract infection, site not specified) UCx: 03/22/23 - >100k E Coli, 50k Proteus mirabilis. Tx'd w/ Macrobid. Then switched to a different abx. 06/07/23 - >100k E Coli. Tx'd w Bactrim x7d. 07/11/23 - 20k E Coli, 10k Proteus. Tx'd w Cipro x 3d. [2] UA today shows trace leuks only. Asx. no indication to send for cx at this time. Follow-up With When Contact Information MIAH ROE, BRENDA Poole, URL [address] [place] [address] [phone] Additional Instructions: flaquita kaplan/ Patient Education Botulinum Toxin Bladder Injection Documentation recorded by the umm Colon accurately reflects the services(s) I performed and decisions made by me. Authenticated by Brenda Marin PA-C on 09/26/2023 17:32:47. I, Abby Colon, personally scribed for Brenda Marin PA-C on 09/26/2023 16:07:30. . Problem List/Past Medical History Ongoing Chronic cystitis Cigarette smoker Dorsalgia OAB (overactive bladder) Recurrent UTI Urethral stricture Historical Abdominal tenderness Acute UTI Dysuria Feeling of incomplete bladder emptying Frequency of urination Nocturia Other post-traumatic urethral stricture, female Urinary urgency Weak urine stream Procedure/Surgical History Cystourethroscopy with dilation of urethral stricture (07/23/2023), Cystourethroscopy with dilation of urethral stricture (06/16/2016), Appendectomy, Biopsy of breast, Hysterectomy. Medications acetaminophen-oxycod one 325 mg-2.5 mg oral tablet, 1 tab(s), Oral, q12hr, PRN amLODIPine 2.5 mg Tab, 5 mg= 2 tab(s), Oral, Daily aspirin 81 mg Oral EC Tab, 81 mg= 1 tab(s), Oral, Daily calcium (as calcium citrate) 200 mg oral tablet, 950 mg= 1 tab(s), Oral, BID gabapentin 300 mg Cap, 300 mg= 1 cap(s), Oral, TID glucosamine 500 mg Cap, 500 mg= 1 cap(s), Oral, BID melatonin, Once a day (at bedtime) meloxicam 15 mg Tab nortriptyline 25 mg Cap, 25 mg= 1 cap(s), Oral, Bedtime Ocuvite, Oral, Daily omeprazole 40 mg Cap-DR, 40 mg= 1 cap(s), Oral, Daily Allergies No Known Allergies Social History Alcohol - Denies Alcohol Use, 02/18/2019 Current, 04/12/2023 Substance Abuse Tobacco Former smoker, quit more than 30 days ago Tobacco Use:. Never Smokeless Tobacco Use:. Cigarettes, Household tobacco c (more content not included)... [facility] Comment on above: Result Comment: Elec tronically Signed By: BRENDA MARIN PA-C\.br\Date and Time Signed: 09/26/23 17:33 EDT\.br\Electronically Co-Signed By: Abby Colon\.br\Date and Time Co-Signed: 09/26/23 16:07 EDT Ambulatory Visit Summaryon 0 08-28-2023 Ambulatory Visit Summary AARON LEWIS :1945 Visit Date:08/28/2023 Ambulatory Visit Instructions Your Diagnosis Urethral stricture OAB (overactive bladder) Recurrent UTI Your Care Team Attending Physician - BRENDA MARIN PA-C Primary Care Physician - DEREK BERNAL, JEREMIAH Referring Physician - BRENDA MARIN PA-C This [...] Duration: 30 Days Refills: 11 Pickup at [facility]/pharmacy #[id number] New vibegron (Gemtesa 75 mg oral tablet) 1 Tablets By Mouth Every day Urethral stricture OAB (overactive bladder) Recurrent UTI Duration: 30 Days Refills: 11 Pickup at [facility]/pharmacy #[id number] Unchanged acetaminophen-oxycod one (acetaminophen-oxyco done [...] Capsules By Mouth Every day Pharmacy Information [facility]/pharmacy #[id number]: [address], [place] [phone] Allergies No Known Allergies Problems Ongoing - [...] you for choosing us for your care. [facility] Patient Educationon 08-28-19 Patient Education Obstetrics [...] health care provider. General instructions ? Take luyw-wga-rqnrpaj and prescription medicines only as told by [...] monitor yo (more content not included)... [facility] Urology Office/Clinic Noteon 08-28-2023 Urology Office/Clinic [...] we have plan of next steps Ordered: jeronimogron, 50 mg = 1 tab(s), Oral, Daily, X 30 day(s), # 30 tab(s), Refills(s) 11, Pharmacy: [facility]/pharmacy #[id number], 165, cm, 08/28/23 15:03:00 EDT, Height/Length Dosing, 90, kg, 08/28/23 15:03:00 EDT, Weight Dosing vibegron, 75 mg = 1 tab(s), Oral, Daily, X 30 day(s), # 30 tab(s), Refills(s) 11, Pharmacy: [facility]/pharmacy #[id number], 165, cm, 08/28/23 15:03:00 EDT, Height/Length Dosing, 90, kg, 08/28/23 15:03:00 EDT, Weight Dosing 26840 Measure Post Void residual urine and/or bladder capacity by US- non-imaging Body Mass Index (BMI) documented 3008F Complex E&M Add on G2211 Current tobacco non-user 1036F Depression Screening Negative 3352F E&M of Est. Patient Moderate 30-39 Min 35689 Influenza immunization status assessed 1030F Medication list [...] Urnls Dip Stick Auto w/o Microscopy POC 40720 2. Urethral stricture (N35.919: Unspecified urethral stricture, [...] X 30 day(s), # 30 tab(s), Refills(s) , Pharmacy: [facility]/pharmacy #[id number], 165, cm, 08/28/23 15:03:00 EDT, Height/Length Dosing, 90, kg, 08/28/23 15:03:00 EDT, Weight Dosing vibegron, 75 mg = 1 tab(s), Oral, Daily, X 30 day(s), # 30 tab(s), Refills(s) 11, Pharmacy: [facility]/pharmacy #[id number], 165, cm, 08/28/23 15:03:00 EDT, Height/Length Dosing, 90, kg, 08/28/23 15:03:00 EDT, Weight Dosing 36800 Measure Post Void residual urine and/or bladder capacity by US- non-imaging Body Mass Index (BMI) documented 3008F Complex E&M Add on G2211 Current tobacco non-user 1036F Depression Screening Negative 3352F E&M of Est. Patient Moderate 30-39 Min 81094 Influenza immunization status assessed 1030F Medication list [...] Coli, 50k Proteus (more content not included)... [facility] Comment on above: Result Comment: Elec tronically Signed By: BRENDA MARIN PA-C\.br\Date and Time Signed: 08/28/23 15:38 EDT Physician Orderon 08-02-2023 Physician Order [id number] #1.00TIFF [facility] Consent for Procedure/Surger yon 07-23-2023 Consent for Procedure/Surgery [id number] 4#1.00TIFF [facility] Consent for Treatmenton 07-12 Consent for Treatment [id number] 1#1.00TIFF [facility] Inpatient Patient Summaryon 07-23-2023 Inpatient Patient Summary [address] [address] Clinical Summary Person Information Name: AARON LEWIS Age: 78 Years : 1945 Sex: Female PCP: JEREMIAH REED MD Marital Status: Phone: [phone] Race: White Ethnicity: Non- or Language: Latvian Visit Id: Visit Reason: URETHER STRICTURE AND RECURRENT UTI Speciality: Acuity: Enc Type: Outpatient Med Service: Surgery Arrival: 07/23/2023 13:44:06 Discharge: Dispo Type: Address: [address] [place] [address] [address] [place] [id number] Provider Notes: Diagnosis: Problems Active Recurrent UTI [...] MD Follow up: With: Address: When: BRENDA MIAH [address] [place] [phone] Business (1) Comments: Call for followup appointment with Georgette Marin PA-c within the next 2 months or so to monitor you. Please finish your antibiotics and have a great day. Patient Education Information: EU - Cystoscopy with Urethral Dilation Discharge Instructions (Custom) [facility] IntraOperative Documentson 0 07-23-2023 IntraOperative Documents [id number] 5#1.00TIFF [facility] Main OR Intraoperative Recor don 07-23-2023 Main OR Intraoperative Record IntraOp Document Type FTURO Summary Primary Physician: Cayden ROBB MD Finalized Date/Time: 07/23/23 14:33:02 Pt. Name: AARON LEWIS/Sex: 1945 Female Med Rec #: [id number] Physician: Cayden ROBB MD Financial #: [id number] Pt. Type: O Room/Bed: / Admit/Disch: 07/23/23 [...] Son Tellez Role Performed Surgeon - Primary Industrial Ecology Technician - Primary Scrub - Primary Time In 07/23/23 14:19:00 07/23/23 14:19:00 07/23/23 14:19:00 Time Out 07/23/23 14:31:00 07/23/23 14:31:00 07/23/23 14:31:00 Procedure CYSTOSCOPY LOCAL WITH CYSTOSCOPY LOCAL WITH CYSTOSCOPY LOCAL WITH URETHRAL DILATION(.) URETHRAL DILATION(.) URETHRAL DILATION(.) Comments Last Modified By: Jonh ALVARES, Crissy Borja RN, Crissy Borja RN, Crissy Hollins 07/23/23 Codie Hollins 07/23/23 Codie P 07/23/23 14:26:27 14:26:27 14:26:27 [...] By: Crissy Borja RN 07/23/23 14:33 Normal [facility] Main OR Preoperative Recordo n 07-23-2023 Main OR Preoperative Record Holding Area Document Type FTURO Summary Primary Physician: Cayden ROBB MD Finalized Date/Time: 07/23/23 14:14:06 Pt. Name: AARON LEWIS Flori Odom/Sex: 1945 Female Med Rec #: [id number] Physician: Cayden ROBB MD Financial #: [id number] Pt. Type: O Room/Bed: / Admit/Disch: 07/23/23 [...] JOSE Markham RN, Ruthann 07/23/23 14:14 Normal [facility] Operative Reporton Operative Report Patient: AARON LEWIS Age: 78 years Sex: Female : 1945 Associated Diagnoses: None Author: Cayden ROBB MD Procedure Operative Information Details: Date/ Time: 07/23/2023 14:29:00. Pre-Op Dx: Recurrent UTI (GVI75-UX N39.0, Working, Medical), Unspecified urethral stricture, female (FWH22-YB N35.92, Working, Medical), Overactive bladder (GKA54-UQ N32.81, Working, Medical). Post-Op Dx: Same. Anesthesia [...] urine. The Urethra was dilated to: 30 English w/ sounds. Devices Implanted: None. Removal: Cystoscope is removed, The patient tolerated it well. Postoperative Information Discharge: Patient is discharged home with antibiotic coverage, Follow up arranged, F/U with Georgette Mrain PA-C within the next 2-3 months. Monitor the urinary flow pattern. The goal is also to decrease UTI frequency. . [facility] Comment on above: Result Comment: Elec tronically Signed By: Cayden ROBB MD\.br\Date and Time Signed: 07/23/23 14:30 EDT Outpatient Surgery Discharge Instructionon 07-23-2023 Outpatient Surgery Discharge Instruction [address] [address] Patient Discharge Instructions PERSON INFORMATION Name: AARON LEWIS Date of : 1945 Current Date: 07/23/2023 14:28:53 PHYSICIANS Admitting Physician: Cayden ROBB MD Comment: Discharge Diagnosis: AARON LEWIS has been given the following list of follow-up instructions, prescriptions, and patient education materials: IF UNABLE TO CONTACT YOUR PHYSICIAN AND YOU FEEL IT IS AN EMERGENCY, GO TO THE NEAREST EMERGENCY ROOM OR CALL 911 Follow up: With: Address: When: BRENDA MARIN [address] [place] [phone] [facility] (1) Comments: Call for followup appointment [...] you have a fever over 100 degrees I, АННА, AARON J, have received the attached patient education [...] to serve you. Thank you for choosing [facility] C Urineon 07-11-2023 Bacteria identified Cx Nom (U) Microbiology PROCEDURE: Urine Culture [R1] SOURCE: U CleanCatch BODY SITE: COLLECTED DATE/TIME: 07/09/2023 11:55 EST RECEIVED DATE/TIME: 07/09/2023 18:11 EST START DATE/TIME: 07/09/2023 18:11 EST FREE TEXT SOURCE: MIAH PA-C, BRENDA MARIN PA-C, BRENDA Poole FINAL REPORTS [...] This test was performed at: [facility], [address] [place] [address], [phone]- , [place], Normal [facility] Comment on above: Performed By: #### 2 706251 ####[facility] [address] [place] [address] Ambulatory Visit Summaryon 0 07-09-2023 Ambulatory Visit Summary AARON LEWIS :1945 Visit Date:07/09/2023 Ambulatory Visit Instructions Your Diagnosis Chronic cystitis Your Care Team Attending Physician - BRNEDA MARIN PA-C Primary Care Physician - JEREMIAH [...] Follow-Up Appointments Sunday 9:00 AM EST Where: [facility] Sunday 2:30 PM EDT Where: [facility] Medications What How [...] for choosing us for your care. [facility] C Urineon 06-07-2023 Bacteria identified Cx Nom (U) Microbiology PROCEDURE: Urine Culture [R1] SOURCE: U CleanCatch BODY SITE: COLLECTED DATE/TIME: 06/05/2023 13:47 EST RECEIVED DATE/TIME: 06/05/2023 17:49 EST START DATE/TIME: 06/05/2023 17:49 EST FREE TEXT SOURCE: BRENDA MARIN PA-C, PA-C, BRENDA Poole FINAL REPORTS Final Report [...] Locations R1: This test was performed at: [facility], [address] [place] [address], [phone]- , [place], [facility] Comment on above: Performed By: #### 2 [id number] ####[address] [address] Lab Reportson 06-06-2023 Lab Reports [id number] 7#1.00TIFF Normal [facility] Screenson 06-06-2023 Screens [id number]# 1.00TIFF [facility] Ambulatory Visit Summaryon 0 06-05-2023 Ambulatory Visit Summary AARON LEWIS :1945 Visit Date:06/05/2023 Ambulatory Visit Instructions Your [...] CEZAR BERNAL, Cayden Hollins, URL When: Where: [facility] [employer] [address] [place] [address]- Medications What How Much When Instructions Unchanged [...] The main (more content not included)... [facility] Patient Educationon 06-05-19 Patient Education Urology [...] Follow these instructions at home: ? Take yecf-bli-kyubekx and prescription medicines only as told by [...] provider. Document Revised: 03/07/2022 Document Reviewed: 03/07/2022 [employer] Patient Education ? 2022 [employer]. 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 Getting up 3-4x/night, every night. Denies current pain/burning and visible blood in urine. States she has had 2 UTI's since April. Was [place] in [place] [facility] [place]. (No C&S at [facility]) Also at [facility]. C&S 03/24/23 *>100k E Coli & 50-60k [...] available) Was hospitalized back in March @ [facility] due to [place]. (No C&S at [facility] Also at [facility]. UA today shows trace-intact blood, positive nitrates [...] evening fluids and reducing bladder irritants. Ordered: 90743 Measure Post Void residual urine and/or bladder [...] Urnls Dip Stick Auto w/o Microscopy POC 70072 Follow-up With When Contact Information CEZAR BERNAL, Cayden Hollins, URL [address] [address]- Additional Instructions: Schedule cysto/UD Patient Education Urethral [...] mg= 2 tab (more content not included)... [facility] Comment on above: Result Comment: Elec tronically Signed By: BRENDA MARIN PA-C\.br\Date and Time Signed: 06/05/23 17:59 EST\.br\Electronically Co-Signed By: Dori Mantillabr\Date and Time Co-Signed: 06/05/23 13:35 EST Insurance Correspondence Off 04-19-2023 Insurance Correspondence Office [id number] 8#1.00TIFF [facility] Discharge Instructionson Discharge Instructions [id number] 8#1.00TIFF [facility] Outside Recordson 04-14-2023 Outside Records [id number] 3#1.00TIFF [facility] BMPon 04-13-2023 Anion gap [Moles/Vol] 14 mmol/L Normal 6-16 [facility] Comment on above: Performed By: #### 2 837330, 1942766, [id number] ####[facility] [address] [place] [address] Calcium [Mass/Vol] 9.1 mg/dL Normal 8.9-11.1 [facility] Comment on above: Performed By: #### 2 545277, 8195698, 12779475 ####[facility] [address] [place] [address] Chloride [Moles/Vol] 114 mmol/L High 101-111 [facility] Comment on above: Performed By: #### 2 318655, 5305882, [id number] ####[facility] [address] [place] [address] CO2 [Moles/Vol] 20 mmol/L Low 21-31 [facility] Comment on above: Performed By: #### 2 587726, 7643694, 62730719 ####[facility] [address] [place] [address] Creatinine [Mass/Vol] 1.2 mg/dL Normal 0.5-1.3 [facility] Comment on above: Performed By: #### 2 845037, 2352201, 26887406 ####[facility] [address] [place] [address] Glucose [Mass/Vol] 96 mg/dL Normal 55-199 [facility] Comment on above: Result Comment: If t his glucose result represents a fasting glucose, interpretation should refer to the following reference range: 55-99 mg/dL Performed By: #### 2 560182, 6463823, 33331514 ####[facility] [address] [place] [address] Potassium [Moles/Vol] 3.9 mmol/L Normal 3.5-5.3 [facility] Comment on above: Performed By: #### 2 498056, 6901659, 41611219 ####[facility] [address] [place] [address] Sodium [Moles/Vol] 144 mmol/L Normal 135-145 [facility] Comment on above: Performed By: #### 2 821266, 5422949, 84146346 ####[facility] [address] [place] [address] Urea nitrogen [Mass/Vol] 29 mg/dL High 5-21 [facility] Comment on above: Performed By: #### 2 768871, 5004266, 16162543 ####[facility] [address] [place] [address] Urea nitrogen/Creatinine [Mass ratio] 24 No Units High 10-20 [facility] Comment on above: Performed By: #### 2 658936, 1914879, 10620699 ####[facility] [address] [place] [address] CHEMISTRYOrdered By: SYSTEM SYSTEM on 04-13-2023 Anion gap [Moles/Vol] 14 mmol/L Normal 6 - 16 mEq/L [facility] Remisol Calcium [Mass/Vol] 9.1 mg/dL Normal 8.9 - 11. 1 mg/dL [facility] Chloride [Moles/Vol] 114 mmol/L High 101 - 1 11 mmol/L [facility] Cholesterol [Mass/Vol] 164 mg/dL Normal 120 - 200 mg/dL [facility]isol Cholesterol in HDL [Mass/Vol] 62 mg/dL Invalid Interpretation Code [facility] Comment on above: Interpretive Data: H DL > or equal to 60 mg/dL: Low cardiovascular risk HDL < 40 mg/dL : High cardiovascular risk Cholesterol in LDL [Mass/Vol] 73 mg/dL Normal <=129mg/dL [facility]isol Cholesterol in VLDL [Mass/Vol] 21 mg/dL Normal 7 - 40 mg/dL [facility] CO2 [Moles/Vol] 20 mmol/L Low 21 - 31 mmol/L [facility] Creatinine [Mass/Vol] 1.2 mg/dL Normal 0.5 - 1.3 mg/dL [facility] GFR/1.73 sq M.predicted among non-blacks MDRD (S/P/Bld) [Vol rate/Area] 47 mL/min/1.73 m2 Low >=59mL/min/1 .73 m2 [facility] S Comment on above: Interpretive Data: C hronic kidney disease could be indicated at eGFR's of less than 60 mL/min/1.73m2. Kidney failure is indicated at less than 15 mL/min/1.73m2. Glucose [Mass/Vol] 96 mg/dL Normal 55 - 199 mg/dL [facility] Comment on above: Interpretive Data: I f this glucose result represents a fasting glucose, interpretation should refer to the following reference range: 55-99 mg/dL Potassium [Moles/Vol] 3.9 mmol/L Normal 3.5 - 5.3 mmol/L [facility] Sodium [Moles/Vol] 144 mmol/L Normal 135 - 145 mmol/L [facility] Triglyceride [Mass/Vol] 106 mg/dL Normal <=149mg/dL F [facility] Remisol Urea nitrogen [Mass/Vol] 29 mg/dL High 5 - 21 mg/dL [facility]isol Urea nitrogen/Creatinine [Mass ratio] 24 mg/mg High 10 - 20 [facility] Discharge Note-Nursingon Discharge Note-Nursing АННАAARON SILVA :1945 Visit Date:04/12/2023 Inpatient Discharge Instructions Your [...] oral tablet) glucosamine oxymetazoline nasal (Afrin 0.05% [place]) Procedure History Cystourethroscopy with dilation of urethral [...] Pending Diagnostic Test Results None Pharmacy Information [facility] Discharge Instructions Follow up appts as writtenNo driving until cleared by PCP or neuroTake all medications as ordered, monitor prn medication use Previously Scheduled Follow-Up Appointments Sunday 1:00 PM EST With: MIAH ROE, BRENDA Poole Where: [facility] ED Note-Physicianon 04-13-20 ED Note-Physician [...] had a urinary tract infection diagnosed at [facility] for which she is on antibiotics. She [...] 500 mL 500 mL, 500 mL, IV egjaec4364 units/mLInjection [F], 5000 unit(s), SubCutaneous oxym0.05Spr [F], [...] of uret (more content not included)... [facility] Comment on above: Result Comment: Elec tronically Signed By: Abran Holguin DO\.br\Date and Time Signed: 04/12/23 22:13 EST Inpatient Clinical Summaryon 04-13-2023 Inpatient Clinical Summary [address] [address] Clinical Summary Person Information: Name: AARON LEWIS Age: 78 Years : 1945 Sex: Female PCP: JEREMIAH REED MD Marital Status: Race: White Ethnicity: Non- or Language: Latvian Visit Id: Visit Reason: Altered mental status; AMS Speciality: Acuity: Enc Type: Observation Med Service: Medical Arrival: 04/12/2023 12:15:14 Discharge: Dispo Type: Admitted as IP to this Hosp Address: [address] [place] [address] [address] [place] [id number] Provider Notes: Diagnosis: 1:AMS (altered mental status); [...] up: With: Address: When: Ehsan Blair MD [place] [phone] Within 1 to 2 weeks Comments: This office is closed on Fridays. Please call the office on Sunday April 16, 2023 for a follow up appiontment. Thank you. With: Address: When: JEREMIAH DEREK [address] [place] [address] [facility] () Within 2 to 4 days Comments: Call for followup appointment With: Address: When: [facility] Comments: Call for followup appointment for anxiety/depression care. Type Location Start [place] [facility] Office Visit [facility] 06/05/2023 1:00 PM 06/05/2023 1:15 PM Confirmed Patient Education Information: Confusion aspirin Normal [facility] Inpatient Patient Summaryon 04-13-2023 Inpatient Patient Summary [place] [id number] Patient Discharge Instructions PERSON INFORMATION Name: AARON LEWIS Date of : 1945 Current Date: 04/13/2023 12:14:32 PHYSICIANS Admitting Physician: Efrain Kurtz MD Primary Care Physician: JEREMIAH REED MD Comment: Discharge Diagnosis: 1:AMS (altered mental status); 2:Elevated serum creatinine; 3:HTN (hypertension); 4:Anxiety and depression; 5:Peripheral neuropathy; 6:Chronic GERD; 7:OAB (overactive bladder); 8:Obesity; 9:On deep vein thrombosis (DVT) prophylaxis; Depression, unspecified Condition at Discharge: Stable AARON LEWIS has been given the following list of [...] up: With: Address: When: Johnnie BERNAL, Ehsan [place] [phone] Within 1 to 2 weeks Comments: This office is closed on Fridays. Please call the office on Sunday April 16, 2023 for a follow up appiontment. Thank you. With: Address: When: JEREMIAH REED [address] [place] [phone] Business (1) Within 2 to 4 days Comments: Call for followup appointment With: Address: When: [facility] Comments: Call for followup appointment for anxiety/depression care. In the event that this physician does not participate in your insurance network, please consult with your insurance company to find a nearby participating provider. Type Location Start [facility] Office Visit [facility] 06/05/2023 1:00 PM 06/05/2023 1:15 PM Confirmed [...] 200 mg oral tablet) By Mouth 2 adná (more content not included)... Normal [facility] Interdisciplinary Note - Danie e Manageron 04-13-2023 Interdisciplinary Note - Job Coaching Pt is awake and alert in bed, previously rounded with Radha PENNY. Pending Neurology to see and pending MRI. Pending therapy evals, Observation status reviewed [facility] form reviewed, signed by pt and original provided. PT is independent from home, family at bedside and will transport at [place], Declines any concerns or anticipate DC needs. . PCP verified and insurance information reviewed and DME discussed. Contact information provided and white board updated. CRM returned to pt room to discuss DC plans. PT= HH and pt is agreeable to HH at [place], prefers to [facility] as she has used in past, referral to resource center, anticipate DC home today. Nursing and MUSIC COMPOSER updated. Normal [facility] Comment on above: Result Comment: Elec tronically Signed By: Thu ALVARES, Sallie\.mario\Date and Time Signed: 04/13/23 12:17 EST Interdisciplinary Note - Ashly n 04-13-2023 Interdisciplinary Note - OT OT [facility] six clicks score 21/24 = no further OT needs. Patient requires Dist sup w/ transfers. completes Adls w/ dist sup after set up. Dc inpatient OT services as pt appears close to baseline status and has all bathroom dme already in place at home. Normal [facility] Interdisciplinary Note - Soc ial Workeron 04-13-2023 Interdisciplinary Note - Shovel Loader Operator This SW met with patient today to [...] any substances. SW will remain available. [facility] Lipid Panelon 04-13-2023 Cholesterol [Mass/Vol] 164 mg/dL Normal 120-200 Fi [facility] Comment on above: Performed By: #### 2 131951, 9513284, 06735337 ####[facility] [address] [place] [address] Cholesterol in HDL [Mass/Vol] 62 mg/dL Invalid Interpretation Code [facility] Comment on above: Result Comment: HDL > or equal to 60 mg/dL: Low cardiovascular risk HDL < 40 mg/dL : High cardiovascular risk Performed By: #### 2 936018, 2792868, 27821630 ####[facility] [address] [place] [address] Cholesterol in LDL [Mass/Vol] 73 mg/dL Normal <=129 [facility] Comment on above: Performed By: #### 2 347200, 4762673, 26265339 ####[facility] [address] [place] [address] Cholesterol in VLDL [Mass/Vol] 21 mg/dL Normal 7-40 [facility] Comment on above: Performed By: #### 2 549594, 9357844, 68051881 ####[facility] [address] [place] [address] Triglyceride [Mass/Vol] 106 mg/dL Normal <=149 F [facility] Comment on above: Performed By: #### 2 829048, 1081302, 57370313 ####[facility] [address] [place] [address] MRI Brain w/o Contraston MRI Brain w/o [...] LESLEY Technologist: MAXI Technical Comments None Normal [facility] Message from Medicareon Message from Medicare [id number] 20 [id number] #1.00TIFF Normal [facility] Monitor Recordon 04-13-2023 Monitor Record [id number] 6#1.00TIFF Normal [facility] Monitor Record [id number] 8#1.00TIFF Normal [facility] Monitor Record [id number] 0#1.00TIFF Normal [facility] eGFRon 04-13-2023 GFR/1.73 sq M.predicted among non-blacks MDRD (S/P/Bld) [Vol rate/Area] 47 mL/min/1.73 m2 Low >=59 [facility] Comment on above: Order Comment: Order added by Discern Expert. Result Comment: Gang Ripsaw Operator sally kidney disease could be indicated at eGFR's of less than 60 mL/min/1.73m2. Kidney failure is indicated at less than 15 mL/min/1.73m2. Performed By: #### 2 908707, 7999101, 19480844 ####[facility] [address] [place] [address] Auto Diffon 04-12-2023 Basophils/100 WBC (Bld) 0.4 % Normal 0.0-2.0 [facility] Comment on above: Order Comment: Order Added by Discern Expert. Performed By: #### 1 2422720, 09352996, 5297209, 68803340, 097566124, 2648158, 7408548, 9011961, 7541283, 99444749, 8252884, 2710474 ####[address] [address] Basophils/Leukocytes Auto (Bld) [Pure # fraction] 0.1 E9/L Normal 0.0-0.2 [facility] Comment on above: Order Comment: Order Added by Discern Expert. Performed By: #### 1 6054586, 60101319, 2513767, 33125477, 807170419, 4887875, 0960777, 9290042, 5968278, 90565394, 5916787, 6885193 ####[place] [address] [place] [address] Eosinophils/100 WBC (Bld) 0.1 % Normal 0.0-8.0 [facility] Comment on above: Order Comment: Order Added by Discern Expert. Performed By: #### 1 0441001, 61891157, 3332400, 01873213, 602264483, 0303715, 7643226, 7558569, 3987393, 89551617, 9710428, 9391706 ####[place] [address] [place] [address] Eosinophils/Leukocytes Auto (Bld) [Pure # fraction] 0.0 E9/L Normal 0.0-0.5 [facility] Comment on above: Order Comment: Order Added by Discern Expert. Performed By: #### 1 5059985, 93278352, 0686694, 36411315, 867402572, 8890916, 7365923, 5985989, 1825555, 61746463, 5940843, 3956464 ####[facility] [address] [place] [address] Lymphocytes/100 WBC (Bld) 9.7 % Low 14.0-50.0 [facility] Comment on above: Order Comment: Order Added by Discern Expert. Performed By: #### 1 5833368, 37131262, 8282777, 73339959, 464288488, 2787296, 0054878, 3732713, 7531339, 49889290, 4952484, 5608995 ####[facility] [address] [place] [address] Lymphocytes/Leukocytes Auto (Bld) [Pure # fraction] 1.5 E9/L Normal 1.0-4.0 [facility] Comment on above: Order Comment: Order Added by Discern Expert. Performed By: #### 1 4092134, 90693232, 0788563, 13295921, 797374291, 7102626, 4468834, 7442386, 4469229, 43216759, 3488823, 5383045 ####[facility] [address] [place] [address] Monocytes/100 WBC (Bld) 7.8 % Normal 4.0-14.0 [facility] Comment on above: Order Comment: Order Added by Discern Expert. Performed By: #### 1 2108500, 00237028, 4327220, 74427886, 763174145, 6174740, 7550104, 5638495, 4193797, 91061093, 2330781, 4005545 ####[facility] [address] [place] [address] Monocytes/Leukocytes Auto (Bld) [Pure # fraction] 1.2 E9/L High 0.2-1.0 [facility] Comment on above: Order Comment: Order Added by Discern Expert. Performed By: #### 1 7866949, 39016887, 4453859, 10185070, 550503406, 1746515, 3015076, 0690312, 8414079, 07279523, 4278238, 8846768 ####[facility] [address] [place] [address] Neutrophils/100 WBC (Bld) 82.0 % High 36.0-75.0 [facility] Comment on above: Order Comment: Order Added by Discern Expert. Performed By: #### 1 0332452, 60833016, 6700655, 93273197, 134286693, 4029023, 6986921, 8711343, 7504438, 06288178, 2779198, 2869816 ####[facility] [address] [place] [address] Neutrophils/Leukocytes Auto (Bld) [Pure # fraction] 12.4 E9/L High 2.0-7.5 [facility] Comment on above: Order Comment: Order Added by Discern Expert. Performed By: #### 1 6654707, 85753717, 4306442, 00940827, 184285487, 3841730, 6103527, 7923749, 9724809, 97143835, 1248848, 9847676 ####[facility] [address] [place] [address] BMPon 04-12-2023 Creatinine [Mass/Vol] 1.8 mg/dL High 0.5-1.3 [facility] Comment on above: Performed By: #### 1 7481431, 84829001, 3656870, 24164831, 762772277, 3866100, 3893924, 7342887, 5485690, 35755467, 8773229, 6722061 ####[facility] [address] [place] [address] Urea nitrogen [Mass/Vol] 39 mg/dL High 5-21 [facility] Comment on above: Performed By: #### 1 5339947, 68584132, 3812284, 96043207, 522475147, 8216077, 7897153, 7994687, 7366451, 11174620, 4994371, 3249659 ####[facility] [address] [place] [address] Urea nitrogen/Creatinine [Mass ratio] 22 No Units High 10-20 [facility] Comment on above: Performed By: #### 1 7829237, 16368635, 9786849, 80556825, 751936834, 6923805, 2443165, 4940635, 6529374, 90971878, 1603080, 3038958 ####[facility] [address] [place] [address] Anion gap [Moles/Vol] 16 mmol/L Normal 6-16 [facility] Comment on above: Performed By: #### 1 1606628, 26334094, 9000059, 72202055, 953787502, 8238889, 9389290, 0027139, 4642074, 41224042, 4441238, 8275605 ####[facility] [address] [place] [address] Calcium [Mass/Vol] 10.0 mg/dL Normal 8.9-11.1 [facility] Comment on above: Performed By: #### 1 8500276, 65400704, 5031216, 09763601, 216073940, 2288251, 7973069, 7128678, 4108799, 90596085, 2640460, 7391341 ####[facility] [address] [place] [address] Chloride [Moles/Vol] 109 mmol/L Normal 101-111 [facility] Comment on above: Performed By: #### 1 1796059, 93837872, 0427223, 10566971, 931394998, 9750188, 1276706, 4008847, 8956750, 80885512, 5557029, 2749723 ####[facility] [address] [place] [address] CO2 [Moles/Vol] 23 mmol/L Normal 21-31 [facility] Comment on above: Performed By: #### 1 8960236, 42956644, 4441818, 21736014, 989268394, 8788112, 5684700, 1239023, 5661258, 30889295, 3622844, 5255980 ####[facility] [address] [place] [address] Glucose [Mass/Vol] 89 mg/dL Normal 55-199 [facility] Comment on above: Result Comment: If t his glucose result represents a fasting glucose, interpretation should refer to the following reference range: 55-99 mg/dL Performed By: #### 1 2779921, 31077318, 9225200, 52612504, 438575699, 8581120, 5649861, 5883593, 2665585, 37435334, 7640961, 4929658 ####[facility] [address] [place] [address] Potassium [Moles/Vol] 4.3 mmol/L Normal 3.5-5.3 [facility] Comment on above: Performed By: #### 1 8871114, 17491159, 7400910, 40761138, 740597494, 8108932, 3821975, 4293708, 1999260, 78575327, 3521764, 1217246 ####[facility] [address] [place] [address] Sodium [Moles/Vol] 144 mmol/L Normal 135-145 [facility] Comment on above: Performed By: #### 1 9243497, 20181502, 6619065, 52605977, 047971458, 1358293, 9968745, 6420052, 7409028, 76870908, 8167450, 0485240 ####[facility] [address] [place] [address] CBC w/ Auto Diffon 3 Erythrocyte distribution width (RBC) [Ratio] 15.3 % High 10.9-14.2 [facility] Comment on above: Performed By: #### 1 3359179, 12294733, 3328357, 36070966, 423559015, 4181747, 6671134, 7844455, 0722383, 39494104, 4385964, 0648025 ####[facility] [address] [place] [address] Hematocrit (Bld) [Volume fraction] 44.4 % Normal 34.0-46.0 [facility] Comment on above: Performed By: #### 1 4255838, 93853089, 7208156, 09022462, 808988419, 9588263, 4382108, 7802028, 9952802, 38591381, 9099589, 0919638 ####[facility] [address] [place] [address] Hemoglobin (Bld) [Mass/Vol] 14.0 g/dL Normal 12.0-16.0 [facility] Comment on above: Performed By: #### 1 6970003, 72645351, 2439372, 92625786, 771378123, 9695834, 3463533, 9526963, 5972726, 97448042, 5847459, 9501765 ####[address] [place] [address] MCH (RBC) [Entitic mass] 28.5 pg Normal 27.0-34.0 [facility] Comment on above: Performed By: #### 1 9833220, 02970947, 0177724, 64165822, 484356280, 0264574, 4400309, 4503701, 9575238, 41799963, 3991337, 2969221 ####[facility] [address] [place] [address] MCHC (RBC) [Mass/Vol] 31.6 g/dL Normal 31.4-36.0 [facility] Comment on above: Performed By: #### 1 0736273, 22565874, 8694163, 60353337, 870662511, 4079215, 5384092, 6053844, 1200916, 97360134, 5479956, 4772165 ####[address] [place] [address] MCV (RBC) [Entitic vol] 89.9 fL Normal 80.0-100.0 [facility] Comment on above: Performed By: #### 1 4149844, 84577464, 3066578, 42666043, 858486644, 3598572, 4960926, 7775301, 1815898, 78785818, 2659339, 8692664 ####[facility] [address] [place] [address] Platelet mean volume (Bld) [Entitic vol] 9.8 fL Normal 6.4-10.8 [facility] Comment on above: Performed By: #### 1 5214653, 13247538, 6707486, 65033284, 158727503, 8288865, 1928060, 8832606, 7100465, 03869143, 1961729, 3406917 ####[address] [address] Platelets (Bld) [#/Vol] 285.0 E9/L Normal 150.0-500.0 [facility] Comment on above: Performed By: #### 1 0081121, 61563794, 9442203, 06190265, 411776431, 2436184, 3155804, 0781648, 9219461, 27311195, 5897710, 4700530 ####[address] [address] RBC (Bld) [#/Vol] 4.9 E12/L Normal 4.3-5.9 [facility] Comment on above: Performed By: #### 1 1184422, 51133887, 1506145, 27072673, 856066645, 4094276, 8552122, 3830316, 6052215, 24595811, 3760714, 9576424 ####[facility] [address] [place] [address] WBC corrected for nucl RBC Auto (Bld) [#/Vol] 15.1 E9/L High 4.0-11.0 [facility] Comment on above: Performed By: #### 1 9790498, 95007212, 5118706, 09122227, 986269502, 6705076, 6342492, 7380064, 1578279, 15048690, 9165222, 0286800 ####[facility] [address] [facility] [facility] [address] CHEMISTRYOrdered By: SYSTEM SYSTEM on 04-12-2023 Amphetamines [...] 29 mL/min/1.73 m2 Low >=59mL/min/1 .73 m2 [facility] Chem S Comment on above: [...] Sensitivity Troponin I Instructions For Use, Laly Mcf[employer], December 2017) TSH Qn 0.52 m[IU]/L Normal 0.34 - 5.60 mcIU/mL [facility] Remisol Urea nitrogen [Mass/Vol] 39 mg/dL High 5 - 21 mg/dL [facility] Remisol Urea nitrogen/Creatinine [Mass ratio] 22 mg/mg High 10 - 20 [facility] Remisol CHEMISTRYOrdered By: Shauna kendall on 04-12-2023 HbA1c (Bld) [Mass fraction] 5.9 % Normal <=5.9% [facility] ChemAutoSS CHEMISTRYOrdered By: Crystal Faria on 04-12-2023 Glucose [Mass/Vol] 88 mg/dL Normal 55 - 99 mg/dL [facility] POC Subsection Comment on above: Result Comment: Jose matos RN/ POC Username [place] Invalid Interpretation Code [facility] POC Subsection Sodium [Moles/Vol] [id number] mmol/L Invalid Interpretation Code [facility] POC Subsection Sodium [Moles/Vol] [id number] mmol/L Invalid Interpretation Code [facility] POC Subsection COAGULATIONOrdered By: Myra Grayson on 04-12-2023 aPTT Coag (PPP) [Time] 29.5 s Normal 25.1 - 36.5 second(s) [facility] Auto Coag Comment on above: [...] the same coagulation reagent and instrumentation as [facility]. Currently there are no coagulation studies available worldwide for children to 14 days, and no normal ranges. Heparin therapeutic range (represented by Anti-Factor Xa activity of 0.2 - 0.4 U/mL) corresponds to PTT of 56.6 - 109.0 sec. INR Coag (PPP) [Relative time] 0.9 {INR} Invalid Interpretation Code [facility] Auto Coag Comment on above: Interpretive Data: I NR results are specifically intended to assess patients stabilized on long-term Anticoagulation therapy suggested INR s Less Intensive Anticoagulation 2.0 3.0 Conventional Range 3.0 4.5 PT Coag (PPP) [Time] 10.4 s Normal 9.4 - 1 2.5 second(s) [facility] Auto Coag Comment on above: [...] the same coagulation reagent and instrumentation as [facility]. Currently there are no coagulation [...] Barry MD Transcribed by: LESLEY Technologist: SOFIA [facility] CT Spine Cervical w/o Contra ston 04-12-2023 [...] MD Transcribed by: LESLEY Technologist: SOFIA Normal [facility] Capillary Glucose POCon 03-16 Glucose [Mass/Vol] 88 mg/dL Normal 55-99 [facility] Comment on above: Result Comment: Jose matos RN/ Performed By: #### 2 [id number] ####[facility] [address] [place] [address] Consent for Treatmenton 03-16 Consent for Treatment [id number] #1.00TIFF Normal [facility] ED Clinical Summaryon 2022 ED Clinical Summary [place] [id number] ED Clinical Summary Person Information Name: AARON LEWIS [place] Age: 78 Years : 1945 Sex: Female Language: Latvian PCP: JEREMIAH REED MD Marital Status: Visit Id: Visit Reason: Altered mental status; AMS Speciality: Acuity: 2 Enc Type: Observation Med Service: Emergency Arrival: 04/12/2023 12:15:14 Discharge: LOS: 000 04:45 Checkin: 04/12/2023 12:15:14 Checkout: 04/12/2023 17:00:36 Dispo Type: Admitted as IP to this [facility] EVENTS: Event Name Event Status Request Date/Time [...] Labs Collected 04/12/2023 16:57:50 04/12/2023 16:57:50 [facility] [place] [id number] PHYS DOC NOTES: MEDICAL INFORMATION: Prescriptions Given: [...] vein thrombosis (DVT) prophylaxis; Depression, unspecified Normal [facility] ED Patient Education Noteon 04-12-2023 ED Patient Education Note Normal [facility] ED Patient Summaryon 023 ED Patient Summary [address] [id number] Patient Discharge Instructions Person Information Name: AARON LEWIS Age: 78 Years Arrival Date: 04/12/2023 12:15:14 Discharge Diagnosis: 1:AMS (altered mental status); 2:Elevated serum creatinine; 3:HTN (hypertension); 4:Anxiety and depression; 5:Peripheral neuropathy; 6:Chronic GERD; 7:OAB (overactive bladder); 8:Obesity; 9:On deep vein thrombosis (DVT) prophylaxis; Depression, unspecified Primary Care Physician: JEREMIAH REED MD Provider Information Primary Provider: Abran Holguin DO Advanced Pin Inserter Regulator:None The exam and treatment you received in the Emergency Department were for an urgent problem and are not intended as complete care. It is important that you follow up with a doctor, nurse practitioner, or physician?s industrial hire sales assistant for ongoing care. If your symptoms become worse or you do not improve as expected and you are unable to reach your usual health care provider, you should return to the Emergency Department. We are available 24 hours a day. AARON LEWIS has been given the following list of [...] opioids can be used to help relieve ptgrania-zn-jtjcag pain and are often prescribed following a [...] be struggling with addiction, tell your health wound care coordinator and ask for guidance or (more content not included)... Normal [facility] Ethanolon 04-12-2023 Ethanol [Mass/Vol] mg/dL Normal <=7 [facility] Comment on above: Performed By: #### 2 885522 ####[facility] [address] [place] [address] Folateon 04-12-2023 Folate [Mass/Vol] ng/mL Normal >=6.7 [facility] Comment on above: Performed By: #### 1 3773129, 20774676, 5441061, 33930571, 975356610, 1089215, 9607868, 3703577, 2473904, 06326816, 5979618, 3988293 ####[facility] [address] [place] [address] HEMATOLOGYOrdered By: SYSTEM SYSTEM on 04-12-2023 Basophils/100 [...] 04-12-2023 Albumin [Mass/Vol] 4.4 g/dL Normal 3.3-5.0 [facility] Comment on above: Performed By: #### 1 7685905, 22636297, 6704401, 88959233, 980676471, 6195777, 1064244, 7249493, 1143998, 16454796, 9891742, 9113819 ####[facility] [address] [place] [address] Albumin/Globulin (S) [Mass conc ratio] 1.3 Normal 1.1-2.2 [facility] Comment on above: Performed By: #### 1 9084704, 30635882, 9938392, 49427633, 148743706, 2197258, 5237999, 7496779, 6668997, 10766259, 0948836, 7840699 ####[facility] [address] [place] [address] ALP [Catalytic activity/Vol] 78 Int._Unit/L Normal 21-98 [facility] Comment on above: Performed By: #### 1 6225518, 73256165, 5590606, 33122041, 852820387, 2557456, 5853754, 7192154, 2442658, 71009836, 1420433, 4428697 ####[facility] [address] [place] [address] ALT No additional P-5'-P [Catalytic activity/Vol] 22 Int._Unit/L Normal 6-46 [facility] Comment on above: Performed By: #### 1 7487317, 03498381, 7035980, 98387148, 140529342, 4836782, 2497586, 1123059, 1717950, 86222554, 0552268, 0029823 ####[facility] [address] [place] [address] AST [Catalytic activity/Vol] 25 Int._Unit/L Normal 5-43 [facility] Comment on above: Performed By: #### 1 6241003, 15192495, 1009904, 82843992, 492145184, 1918879, 8295671, 7680020, 3898547, 33910297, 9165336, 0910763 ####[facility] [address] [place] [address] Bilirubin [Mass/Vol] 0.7 mg/dL Normal 0.0-1.1 [facility] Comment on above: Performed By: #### 1 0987383, 15401873, 5416466, 83131392, 638349120, 9326382, 4735593, 8798049, 3864292, 87206562, 4193242, 5330510 ####[facility] [address] [place] [address] Bilirubin.direct [Mass/Vol] 0.1 mg/dL Normal 0.1-0.4 [facility] Comment on above: Performed By: #### 1 2394177, 11345137, 0221105, 35540815, 842641427, 7246857, 0299069, 2213168, 0676006, 85482836, 5474454, 9732520 ####[address] [address] Bilirubin.indirect [Mass or moles/Vol] 0.6 mg/dL Normal 0.1-0.9 [facility] Comment on above: Performed By: #### 1 7700746, 34622159, 0148561, 11169224, 720497016, 9612153, 5492750, 3725252, 4081605, 86401611, 5752574, 2047454 ####[address] [place] [address] Globulin (S) [Mass/Vol] 3.3 g/dL Normal 1.4-4.0 [facility] Comment on above: Performed By: #### 1 4131401, 80487165, 9181962, 31933339, 984395988, 8349200, 0066017, 4288650, 6200486, 50052280, 1962845, 5383060 ####[facility] [address] [place] [address] Protein [Mass/Vol] 7.7 g/dL Normal 6.0-7.8 [facility] Comment on above: Performed By: #### 1 2225529, 40148228, 0947485, 33655739, 194164073, 1555879, 4707838, 4699347, 2063460, 40817953, 5680833, 4006630 ####[facility] [address] [place] [address] PnnM8tbu 04-12-2023 HbA1c (Bld) [Mass fraction] 5.9 % Normal <=5.9 [facility] Comment on above: Performed By: #### 1 0033031, 33798089, 2349262, 78909324, 649336260, 8486024, 2008309, 7569894, 7090201, 47084240, 5948787, 5237944 ####[facility] [address] [place] [address] Magnesiumon 04-12-2023 Magnesium [Mass/Vol] 2.0 mg/dL Normal 1.3-2.4 [facility] Comment on above: Performed By: #### 1 2605471, 05699051, 8308277, 36033247, 089643834, 6547953, 4109198, 6596452, 7447683, 60662321, 9091028, 8670022 ####[facility] [address] [place] [address] Monitor Recordon 04-12-2023 Monitor Record [id number] 24#1.00TIFF Normal [facility] PT & PTTon 04-12-2023 aPTT Coag (PPP) [Time] 29.5 second(s) Normal 25.1-36.5 [facility] Comment on above: Result Comment: Para [...] the same coagulation reagent and instrumentation as [facility]. Currently there are no coagulation studies available worldwide for children to 14 days, and no normal ranges. Heparin therapeutic range (represented by Anti-Factor Xa activity of 0.2 - 0.4 U/mL) corresponds to PTT of 56.6 - 109.0 sec. Performed By: #### 1 4786070, 82320230, 5893181, 67676579, 722094375, 9593204, 1352528, 5803533, 2766523, 64918027, 1753912, 6184780 ####[facility] [address] [place] [address] INR Coag (PPP) [Relative time] 0.9 {INR} Invalid Interpretation Code [facility] Comment on above: Result Comment: INR results are specifically intended to assess patients stabilized on long-term Anticoagulation therapy suggested INR?s ?Less Intensive Anticoagulation? 2.0 ? 3.0 Conventional Range 3.0 ? 4.5 Performed By: #### 1 2200956, 54685113, 6917334, 68636363, 206573804, 4641387, 5222377, 6058118, 0590937, 17235112, 0707085, 9691538 ####[facility] [address] [place] [address] PT Coag (PPP) [Time] 10.4 second(s) Normal 9.4-12.5 [facility] Comment on above: Result Comment: 15 [...] ranges were obtained from a study by zarina Chase. prepared from 1437 samples obtained at 7 different centers using the same coagulation reagent and instrumentation as [facility]. Currently there are no coagulation studies available worldwide for children to 14 days, and no normal ranges. Performed By: #### 1 6999982, 67109742, 4822718, 49840352, 107532884, 6834377, 2928734, 2133183, 1127991, 36484601, 6214473, 3203338 ####[facility] [address] [place] [address] Pre-Arrival Noteon Pre-Arrival Note Pre-Arrival Summary Name: , Current Date: 04/12/2023 12:18:15 EST Gender: Female Date of : Age: 88 Pre-Arrival Type: EMS ETA: 04/12/2023 12:29:00 EST Primary Care Physician: Presenting Problem: altered mental status Pre-Arrival User: Brenda Miller RN Referring Source: Location: Completion Date/Time: 04/12/2023 11:59:00 [facility] Emergency Department Pre-Hospital Report Form Vital Signs: Pre-Hospital Report: Treatment in Route: Response to Treatment: Misc. Issues: Normal [facility] RAD - MRI Screening Formon 1 06-12-2022 RAD - MRI Screening Form [id number] 7#1.00TIFF Normal [facility] TSH With T4fr Reflexon 04-12 TSH Qn 0.52 m[IU]/L Normal 0.34-5.60 [facility] Comment on above: Performed By: #### 1 5245655, 65346514, 4369369, 97586591, 252500079, 3905118, 4815063, 9889614, 1216922, 87383039, 3339911, 5935823 ####[facility] [address] [place] [address] Troponin 0 Hr.on 04-12-2023 Troponin I.cardiac [Mass/Vol] 11.90 pg/mL Normal 10.10-27.10 [facility] Comment on above: Order Comment: tez LINTON RN is drawing labs and sending [id number] 04/12/2023 12:26:28 EST Result Comment: The 95% CI (Confidence Interval) PPV (Positive Predictive Value) for myocardial infarction in females is 38 pg/mL, in males 51 pg/mL. The results should be used in conjunction with clinical conditions of myocardial infarction. (Access High Sensitivity Troponin I Instructions For Use, [employer], December 2017) Performed By: #### 1 0172289, 78388236, 0525149, 46132990, 829046482, 6870187, 7615107, 9015272, 6691679, 53784001, 7610974, 4899685 ####[address] [place] [address] U Drug Screenon 04-12-2023 Benzodiazepines Ql (U) Positive Abnormal Negative [facility] Comment on above: Result Comment: Crit ical Result UD_BENZ:POS Called to ABRAN HOLGUIN AT ER by URSULA LOZANO And Read Back For Confirmation at: 04/12/2023 15:35:32\Unconfirmed by alternate method\Results verified by repeat analysis\No confirmation requested by Physican Negative Cutoff: <200 ng/mL Performed By: #### 2 395845 ####[address] [place] [address] Amphetamines Screen method >1000 ng/mL Ql (U) Negative Normal Negative [facility] Comment on above: Result Comment: Nega tive Cutoff: <1000 ng/mL Performed By: #### 2 639575 ####[address] [place] [address] Barbiturates Screen Ql (U) Negative Normal Negative [facility] Comment on above: Result Comment: Nega tive Cutoff: <200 ng/mL Performed By: #### 2 650299 ####[facility] [address] [place] [address] Cocaine Ql (U) Negative Normal Negative [facility] Comment on above: Result Comment: Nega tive Cutoff: <300 ng/mL Performed By: #### 2 361341 ####[facility] [address] [place] [address] Opiates Screen Ql (U) Negative Normal Negative [facility] Comment on above: Result Comment: Nega tive Cutoff: <300 ng/mL Performed By: #### 2 478182 ####[facility] [address] [place] [address] Phencyclidine Screen method >25 ng/mL Ql (U) Negative Normal Negative [facility] Comment on above: Result Comment: Nega tive Cutoff: <25 ng/mL These drug screen results are to be used for medical (i.e., treatment) purposes only. Unconfirmed drug screening results must not be used for non-medical purposes (e.g., employment testing, legal testing). Performed By: #### 2 398499 ####[facility] [address] [place] [address] Tetrahydrocannabinol Screen method >50 ng/mL Ql (U) Negative Normal Negative [facility] Comment on above: Result Comment: Nega tive Cutoff: <50 ng/mL Performed By: #### 2 866973 ####[facility] [address] [place] [address] UA With Cult Reflexon 2022 Bacteria LM Ql (Urine sed) TRACE Normal Trace [facility] Comment on above: Performed By: #### 1 8412679 ####[facility] [address] [place] [address] Bilirubin Ql (U) Negative Normal Negative [facility] Comment on above: Performed By: #### 1 1427177 ####[facility] [address] [place] [address] Clarity (U) CLEAR Normal Clear [facility] Comment on above: Performed By: #### 1 9682201 ####[address] [address] Color (U) YELLOW Normal Yellow [facility] Comment on above: Performed By: #### 1 8389451 ####[address] [address] Epithelial cells.squamous LM.HPF (Urine sed) [#/Area] 0-2 Normal 0-2 [facility] Comment on above: Performed By: #### 1 1335722 ####[address] [address] Glucose Test strip (U) [Mass/Vol] Negative Normal Negative [facility] Comment on above: Performed By: #### 1 6627516 ####[address] [address] Hemoglobin Ql (U) Negative Normal Negative [facility] Comment on above: Performed By: #### 1 4804167 ####[address] [address] Ketones (U) [Mass/Vol] TRACE Abnormal Negative Fi [facility] Comment on above: Performed By: #### 1 7582722 ####[address] [address] [place].plasma/[place]. RBC (Bld) [Mass ratio] 0-3 Normal 0-3 [facility] Comment on above: Performed By: #### 1 6363222 ####[address] [address] Mucus Ql (Urine sed) TRACE Normal [facility] Comment on above: Performed By: #### 1 3942414 ####[address] [address] Nitrite Ql (U) Negative Normal Negative [facility] Comment on above: Performed By: #### 1 3516804 ####[address] [address] pH (U) 5.0 [pH] Invalid Interpretation Code 5.0-9.0 [facility] Comment on above: Performed By: #### 1 3588424 ####[facility] [address] [place] [address] Protein (U) [Mass/Vol] TRACE Abnormal Negative [facility] Comment on above: Performed By: #### 1 3166817 ####[facility] [address] [place] [address] Specific gravity (U) [Rel density] >=1.030 Invalid Interpretation Code 1.005-1.030 [facility] Comment on above: Performed By: #### 1 2555165 ####[facility] [address] [place] [address] Type of Urine collection method Catheter Normal [facility] Comment on above: Performed By: #### 1 7628223 ####[facility] [address] [place] [address] Urobilinogen Qn (U) 0.2 {Nevaeh'U}/dL Normal 0.0-1.0 [facility] Comment on above: Performed By: #### 1 5367303 ####[facility] [address] [place] [address] WBC Auto Ql (U) Negative Normal Negative [facility] Comment on above: Performed By: #### 1 6273546 ####[facility] [address] [place] [address] WBC casts LM.LPF (Urine sed) [#/Area] 0-3 Normal [facility] Comment on above: Performed By: #### 1 5822075 ####[facility] [address] [place] [address] WBC LM.HPF (Urine sed) [#/Area] 0-5 Normal 0-5 [facility] Comment on above: Performed By: #### 1 6411095 ####[facility] [address] [place] [address] URINALYSISOrdered By: Bonny Workman on 04-12-2023 Bacteria LM Ql (Urine sed) Trace /HPF Normal Trace/HPF [facility] UA Auto SS Bilirubin Ql (U) Negative [...] Interpretation Code Negative [facility] UA Auto SS [place].plasma/[place]. RBC (Bld) [Mass ratio] 0-3 /HPF Normal 0-3/HPF [facility] A uto SS Mucus Ql (Urine [...] [facility] UA Auto SS Urobilinogen Qn (U) 0.4053784 {Nevaeh'U}/dL Normal 0.0 - 1.0 EU/dL [facility] UA Auto SS WBC Auto Ql (U) Negative (04/12/23 2:32 PM) Normal Negative [facility] UA Auto SS WBC casts LM.LPF (Urine sed) [#/Area] 0-3 (04/12/23 2:32 PM) Normal [facility] UA Auto SS WBC LM.HPF (Urine sed) [#/Area] 0-5 /HPF Normal 0-5/HPF [facility] [place] Vit B12on 04-12-2023 Cobalamin (Vitamin B12) [Mass/Vol] 1018 pg/mL Normal 50-1500 [facility] Comment on above: Performed By: #### 1 [id number], [id number], [id number], [id number], [id number], [id number], [id number], [id number], [id number], [id number], [id number] ####[facility] [address] [place] [address] XR Chest Single Viewon 04-12 XR Chest [...] mGy = na DAP = na Normal [facility] eGFRon 04-12-2023 GFR/1.73 sq M.predicted among non-blacks MDRD (S/P/Bld) [Vol rate/Area] 29 mL/min/1.73 m2 Low >=59 [facility] Comment on above: Order Comment: Order added by Discern Expert. Result Comment: Gang Ripsaw Operator sally kidney disease could be indicated at eGFR's of less than 60 mL/min/1.73m2. Kidney failure is indicated at less than 15 mL/min/1.73m2. Performed By: #### 1 [id number], [id number], [id number], [id number], [id number], [id number], [id number], [id number], [id number], [id number], [id number], [id number] ####[address] [address] [place] [address] XR CSPINE OBL FLEX_EXTon XR CSPINE OBL [...] by: Serena TEJEDA Date: 2022-09-02 00:37 Normal [facility] MRI SHOULDER RT WO CONon MRI [...] EHSAN MILLER Date: 2022-08-22 09:25 Normal [facility] XR SHOULDER RT 2V or >on XR [...] BRENT MALDONADO Date: 2022-08-10 22:45 Normal [facility] CT CHEST WO CONon 06-12-2022 CT CHEST [...] EHSAN MILLER Date: 2022-06-12 16:56 Normal [facility] VIT D 1 25 DIHYDROXYon 04-24 Calcitriol(1,25 di-OH Vit D) 91.0 pg/mL Critically high 24.8-81.5 [facility] Comment on above: Performed By: #### V [id number] #### [facility] [address] [place] [address] Dr. Helio Cee CULTURE URINEon 04-23-2022 CULTURE [...] F Trimethoprim/Sulfame thoxazole <=20 S F Normal [facility] Comment on above: Performed By: #### U RCX #### [facility] [address] [place] [address] Dr. Helio Cee CBC AUTO DIFFon 04-21-2022 BASO # 0.0 103/ul Normal 0.0-0.1 [facility] Comment on above: Performed By: #### E RUR #### [facility] [address] [place] [address] Dr. Helio Cee Basophils/100 WBC (Bld) 0.4 % Normal 0.2-2.0 [facility] Comment on above: Performed By: #### E RUR #### [facility] [address] [place] [address] Dr. Helio Cee EO # 0.4 103/ul Normal 0.0-0.7 [facility] Comment on above: Performed By: #### E RUR #### [facility] [address] [place] [address] Dr. Helio Cee Eosinophils/100 WBC (Bld) 4.0 % Normal 0.9-7.0 [facility] Comment on above: Performed By: #### E RUR #### [facility] [address] [place] [address] Dr. Helio Cee Erythrocyte distribution width (RBC) [Ratio] 15.2 % Critically high 11.0-15.0 [facility] Comment on above: Performed By: #### E RUR #### [facility] [address] [place] [address] Dr. Helio Cee Hematocrit (Bld) [Volume fraction] 41.0 % Normal 36.0-48.0 [facility] Comment on above: Performed By: #### E RUR #### [facility] [address] [place] [address] Dr. Helio Cee Hemoglobin (Bld) [Mass/Vol] 12.9 g/dL Normal 12.0-16.0 [facility] Comment on above: Performed By: #### E RUR #### [facility] [address] [place] [address] Dr. Helio Cee IG # 0.04 10e3/ul Critically high 0.00-0.03 [facility] Comment on above: Performed By: #### E RUR #### [facility] [address] [place] [address] Dr. Helio Cee IG % 0.4 % Normal 0.0-0.5 [facility] Comment on above: Performed By: #### E RUR #### [facility] [address] [place] [address] Dr. Helio Cee LYMPH # 1.1 103/ul Critically low 1.2-3.8 [facility] [place] [facility] Comment on above: Performed By: #### E RUR #### [facility] [address] [place] [address] Dr. Helio Cee Lymphocytes/100 WBC (Bld) 11.9 % Critically low 20.5-60.0 [facility] Comment on above: Performed By: #### E RUR #### [facility] [address] [place] [address] Dr. Helio Cee MANUAL DIFF REQ NO Normal [facility] Comment on above: Performed By: #### E RUR #### [facility] [address] [place] [address] Dr. Helio Cee MCH (RBC) [Entitic mass] 29.0 pg Normal 26.7-34.0 [facility] Comment on above: Performed By: #### E RUR #### [facility] [address] [place] [address] Dr. Helio Cee MCHC (RBC) [Mass/Vol] 31.5 g/dL Normal 29.9-35.2 [facility] Comment on above: Performed By: #### E RUR #### [facility] [address] [place] [address] Dr. Helio Cee MCV (RBC) [Entitic vol] 92.1 fL Normal 81.0-99.0 [facility] Comment on above: Performed By: #### E RUR #### [facility] [address] [place] [address] Dr. Helio Cee MONO # 0.4 103/ul Normal 0.3-0.8 [facility] Comment on above: Performed By: #### E RUR #### [facility] [address] [place] [address] Dr. Helio Cee Monocytes/100 WBC (Bld) 4.4 % Normal 1.7-12.0 [facility] Comment on above: Performed By: #### E RUR #### [facility] [address] [place] [address] Dr. Helio Cee NEUT # 7.3 103/ul Critically high 1.4-6.5 [facility] Comment on above: Performed By: #### E RUR #### [facility] [address] [address] [address] Helio Cee Neutrophils/100 WBC (Bld) 78.9 % Critically high 43.0-75.0 [facility] Comment on above: Performed By: #### E RUR #### [facility] [address] [address] [address] Helio Cee Platelet mean volume (Bld) [Entitic vol] 10.6 fL Normal 9.5-13.5 [facility] Comment on above: Performed By: #### E RUR #### [facility] [address] [address] [address] Helio Cee PLT 269 103/ul Normal 150-450 [facility] Comment on above: Performed By: #### E RUR #### [facility] [address] [address] [address] Helio Cee RBC 4.45 106/ul Normal 4.20-5.40 [facility] Comment on above: Performed By: #### E RUR #### [facility] [address] [address] [address] Helio Cee WBC 9.2 103/ul Normal 4.0-11.0 [facility] Comment on above: Performed By: #### E RUR #### [facility] [address] [address] [address] Helio Cee LIPID PROFILEon 04-21-2022 CHOL-HDL RATIO NORM SEE BELOW Normal [facility] Comment on above: Result Comment: 3.3 - 4.4 LOW RISK 4.4 - 7.1 AVERAGE RISK 7.1 - 11.0 MODERATE RISK >11.0 HIGH RISK Performed By: #### T CAITLIN, LIPID, CMP ####[facility] [id number]. Helio Cee Cholesterol [Mass/Vol] 146 mg/dL Normal <=200 Th [facility] Comment on above: Performed By: #### T SH, LIPID, CMP ####[facility] [id number]. Helio Cee Cholesterol in HDL [Mass/Vol] 63 mg/dL Critically high 40-60 [facility] Comment on above: Performed By: #### T SH, LIPID, CMP ####[facility] [address] [address]Dr. Helio Cee Cholesterol in LDL [Mass/Vol] 66.6 mg/dL Normal [facility] Comment on above: Performed By: #### T SH, LIPID, CMP ####[facility] [address] [address]Dr. Helio Cee Cholesterol.total/Lisa sterol in HDL [Mass ratio] 2.3 {ratio} Normal [facility] Comment on above: Performed By: #### T SH, LIPID, CMP ####[facility] [address] [address]Dr. Helio Cee HDL NORMAL > or = 60 mg/dl - LOW CARDIOVASCULAR RISK <40 mg/dl - HIGH CARDIOVASCULAR RISK Normal [facility] Comment on above: Performed By: #### T SH, LIPID, CMP ####[facility] [address] [address]Dr. Helio Cee LDL CALC NORMAL SEE BELOW Normal [facility] Comment on above: Result Comment: <100 mg/dl OPTIMAL 100 - 129 mg/dl NEAR OR ABOVE OPTIMAL 130 - 159 mg/dl BORDERLINE HIGH 160 - 189 mg/dl HIGH >190 mg/dl VERY HIGH Performed By: #### T SH, LIPID, CMP ####[facility] [address] [address]Dr. Helio Cee Triglyceride [Mass/Vol] 82 mg/dL Normal <=150 T [facility] Comment on above: Performed By: #### T SH, LIPID, CMP ####[facility] [address] [id number]. Helio Cee VLDL CALC 16.4 mg/dL Normal [facility] Comment on above: Performed By: #### T SH, LIPID, CMP ####[facility] [address] [address]Dr. Helio Cee PROF 14(COMP METB)on 022 Albumin [Mass/Vol] 3.5 g/dL Normal 3.4-5.0 [facility] Comment on above: Performed By: #### T SH, LIPID, CMP ####[facility] [address] [address]Dr. Helio Cee Albumin/Globulin [Mass ratio] 1.0 {ratio} Normal [facility] Comment on above: Performed By: #### T SH, LIPID, CMP ####[facility] [address] [address]Dr. Helio Cee ALP [Catalytic activity/Vol] 98 U/L Normal 46-116 [facility] Comment on above: Performed By: #### T SH, LIPID, CMP ####[facility] [address] [place], [place] [address]Dr. Helio Cee ALT [Catalytic activity/Vol] 23 U/L Normal 14-59 [facility] Comment on above: Performed By: #### T SH, LIPID, CMP ####[facility] [address] [place], [place] [address]Dr. Helio Cee Anion gap [Moles/Vol] 12.2 mmol/L Normal [facility] Comment on above: Performed By: #### T SH, LIPID, CMP ####[facility] [address] [place], [place] [address]Dr. Helio Cee AST [Catalytic activity/Vol] 15 U/L Normal 15-37 [facility] Comment on above: Performed By: #### T SH, LIPID, CMP ####[facility] [address] [place], [place] [address]Dr. Helio Cee Bilirubin [Mass/Vol] 0.5 mg/dL Normal 0.2-1.0 [facility] Comment on above: Performed By: #### T SH, LIPID, CMP ####[facility] [address] [place], [place] [address]Dr. Heilo Cee Calcium [Mass/Vol] 9.0 mg/dL Normal 8.5-10.1 [facility] Comment on above: Performed By: #### T SH, LIPID, CMP ####[facility] [address] [place], [place] [address]Dr. Helio Cee Chloride [Moles/Vol] 109 mmol/L Critically high 98-107 [facility] Comment on above: Performed By: #### T SH, LIPID, CMP ####[facility] [address] [address]Dr. Helio eCe CO2 [Moles/Vol] 26.5 mmol/L Normal 21.0-32.0 [facility] Comment on above: Performed By: #### T SH, LIPID, CMP ####[facility] [address] [address]Dr. Helio Cee Creatinine [Mass/Vol] 1.22 mg/dL Critically high 0.55-1.02 [facility] Comment on above: Performed By: #### T SH, LIPID, CMP ####[facility] [address] [address]Dr. Helio Cee EGFR-AF MALTESE 52 mL/min/1.73m2 Critically low >=60 [facility] Comment on above: Performed By: #### T SH, LIPID, CMP ####[facility] [address] [place], [place] [address]Dr. Helio Cee EGFR-NON AF MALTESE 43 mL/min/1.73m2 Critically low >=60 [facility] Comment on above: Performed By: #### T SH, LIPID, CMP ####[facility] [address] [address]Dr. Helio Cee Globulin (S) [Mass/Vol] 3.4 g/dL Normal [facility] Comment on above: Performed By: #### T SH, LIPID, CMP ####[facility] [address] [address]Dr. Helio Cee Glucose [Mass/Vol] 103 mg/dL Normal 74-106 [facility] Comment on above: Performed By: #### T SH, LIPID, CMP ####[facility] [address] [address]Dr. Helio Cee Potassium [Moles/Vol] 4.7 mmol/L Normal 3.5-5.1 [facility] Comment on above: Performed By: #### T CAITLIN, LIPID, CMP ####[facility] [address] [address]Dr. Helio Cee Protein [Mass/Vol] 6.9 g/dL Normal 6.4-8.2 [facility] Comment on above: Performed By: #### T SH, LIPID, CMP ####[facility] [address] [place], [place] [address]Dr. Helio Cee Sodium [Moles/Vol] 143 mmol/L Normal 136-145 [facility] Comment on above: Performed By: #### T SH, LIPID, CMP ####[facility] [address] [place], [place] [address]Dr. Helio Cee Urea nitrogen [Mass/Vol] 22.0 mg/dL Critically high 7.0-18.0 [facility] Comment on above: Performed By: #### T CAITLIN, LIPID, CMP ####[facility] [address] [place], [place] [address]Dr. Helio Cee Urea nitrogen/Creatinine [Mass ratio] 18.0 mg/mg Normal [facility] Comment on above: Performed By: #### T CAITLIN, LIPID, CMP ####[facility] [address] [place], [place] [address]Dr. Helio Cee TSHon 04-21-2022 TSH 0.592 uIU/mL Normal 0.358-3.740 [facility] Comment on above: Performed By: #### T CAITLIN, LIPID, CMP ####[facility] [address] [place], [place] [address]Dr. Helio Cee UA RANDOM W/MICROSCOPICon BACTERIA NONE SEEN Normal NONE SEEN [facility] Comment on above: Performed By: #### U AMIC ####[facility] [address] [place], [place] [address]Dr. Helio Cee Bilirubin Ql (U) Negative Normal NEGATIVE [facility] Comment on above: Performed By: #### U AMIC ####[facility] [address] [place], [place] [address]Dr. Helio Cee CAST NONE SEEN Normal NONE SEEN [facility] Comment on above: Performed By: #### U AMIC ####[facility] [address] [address]Dr. Helio Cee Clarity (U) CLEAR Normal CLEAR [facility] Comment on above: Performed By: #### U AMIC ####[facility] [address] [address]Dr. Helio Cee Color (U) DK. YELLOW Normal YELLOW [facility] Comment on above: Performed By: #### U AMIC ####[facility] [address] [address]Dr. Helio Cee Crystals LM Nom (Urine sed) NONE SEEN Normal NONE SEEN [facility] Comment on above: Performed By: #### U AMIC ####[facility] [address] [place], [place] [address]Dr. Helio Cee Epithelial cells LM Ql (Urine sed) RARE Normal NONE SEEN /RARE [facility] Comment on above: Performed By: #### U AMIC ####[facility] [address] [place], [place] [address]Dr. Helio Cee Glucose Ql (U) Negative Normal NEGATIVE [facility] Comment on above: Performed By: #### U AMIC ####[facility] [address] [place], [place] [address]Dr. Helio Cee Hemoglobin Ql (U) Negative Normal NEGATIVE [facility] Comment on above: Performed By: #### U AMIC ####[facility] [address] [place], [place] [address]Dr. Helio Cee Ketones Ql (U) Negative Normal NEGATIVE [facility] [place] [facility] Comment on above: Performed By: #### U AMIC ####[facility] [address] [place], [place] [address]Dr. Helio Cee LEUKOCYTES Negative Normal NEGATIVE [facility] Comment on above: Performed By: #### U AMIC ####[facility] [address] [place], [place] [address]Dr. Helio Cee MUCOUS TRACE Abnormal NONE SEEN [facility] Comment on above: Performed By: #### U AMIC ####[facility] [address] [address]Dr. Helio Cee Nitrite Ql (U) Negative Normal NEGATIVE [facility] Comment on above: Performed By: #### U AMIC ####[facility] [address] [address]Dr. Helio Cee pH (U) 5.5 [pH] Normal 5-9 [facility] Comment on above: Performed By: #### U AMIC ####[facility] [address] [place], [place] [address]Dr. Helio Cee RBC 0-2 Normal 0-2 [facility] Comment on above: Performed By: #### U AMIC ####[facility] [address] [place], [place] [address]Dr. Helio Cee SPEC GRAVITY >=1.030 Abnormal 1.005-<=1.02 5 [facility] Comment on above: Performed By: #### U AMIC ####[facility] [address] [place], [place] [address]Dr. Helio Cee UA PROTEIN TRACE Normal NEGATIVE/ TRACE [facility] Comment on above: Performed By: #### U AMIC ####[facility] [address] [place], [place] [address]Dr. Helio Cee Urobilinogen Qn (U) 1.0 {Nevaeh'U}/dL Normal 0.2 - 1. 0 [facility] Comment on above: Performed By: #### U AMIC ####[facility] [address] [place], [place] [address]Dr. Helio Cee WBC NONE SEEN Normal NONE SEEN [facility] Comment on above: Performed By: #### U AMIC ####[facility] [address] [place], [place] [address]Dr. Helio Cee CT CHEST WO CONon 02-22-2022 [...] EHSAN MILLER Date: 2022-02-22 16:51 Normal [facility] HEMOGLOBINon 02-22-2022 Hemoglobin (Bld) [Mass/Vol] 13.6 g/dL Normal 12.0-16.0 [facility] Comment on above: Performed By: #### V [id number] #### [facility] [address] [address] [address] Helio Cee XR TIB_FIB RT 2Von [...] plantar calcaneal enthesophyte. Electronically authenticated by: BRENT LOGN Date: 2022-01-07 21:52 Normal [facility] BNPon 11-22-2021 Natriuretic peptide B (Bld) [Mass/Vol] 1469.0 pg/mL Critically high <=900.0 [facility] Comment on above: Performed By: #### C VDTBH #### [facility] [address] [address] [address] Helio Cee CBC AUTO DIFFon 11-22-2021 BASO # 0.1 103/ul Normal 0.0-0.1 [facility] Comment on above: Performed By: #### E RUR #### [facility] [address] [place] [address] Dr. Helio Cee Basophils/100 WBC (Bld) 0.7 % Normal 0.2-2.0 [facility] Comment on above: Performed By: #### E RUR #### [facility] [address] [place] [address] Dr. Helio Cee EO # 0.2 103/ul Normal 0.0-0.7 [facility] Comment on above: Performed By: #### E RUR #### [facility] [address] [place] [address] Dr. Helio Cee Eosinophils/100 WBC (Bld) 1.9 % Normal 0.9-7.0 [facility] Comment on above: Performed By: #### E RUR #### [facility] [address] [place] [address] Dr. Helio Cee Erythrocyte distribution width (RBC) [Ratio] 14.3 % Normal 11.0-15.0 [facility] Comment on above: Performed By: #### E RUR #### [facility] [address] [place] [address] Dr. Helio Cee Hematocrit (Bld) [Volume fraction] 37.9 % Normal 36.0-48.0 [facility] Comment on above: Performed By: #### E RUR #### [facility] [address] [place] [address] Dr. Helio Cee Hemoglobin (Bld) [Mass/Vol] 12.0 g/dL Normal 12.0-16.0 [facility] Comment on above: Performed By: #### E RUR #### [facility] [address] [place] [address] Dr. Helio Cee IG # 0.10 10e3/ul Critically high 0.00-0.03 [facility] Comment on above: Performed By: #### E RUR #### [facility] [address] [address] [address] Helio Cee IG % 1.1 % Critically high 0.0-0.5 [facility] Comment on above: Performed By: #### E RUR #### [facility] [address] [address] [address] Helio Cee LYMPH # 0.9 103/ul Critically low 1.2-3.8 [facility] Comment on above: Performed By: #### E RUR #### [facility] [address] [address] [address] Helio Cee Lymphocytes/100 WBC (Bld) 10.1 % Critically low 20.5-60.0 [facility] Comment on above: Performed By: #### E RUR #### [facility] [address] [place] [address] Dr. Helio Cee MANUAL DIFF REQ NO Normal [facility] Comment on above: Performed By: #### E RUR #### [facility] [address] [address] [address] Helio Cee MCH (RBC) [Entitic mass] 29.8 pg Normal 26.7-34.0 [facility] Comment on above: Performed By: #### E RUR #### [facility] [address] [place] [address] Dr. Helio Cee MCHC (RBC) [Mass/Vol] 31.7 g/dL Normal 29.9-35.2 [facility] Comment on above: Performed By: #### E RUR #### [facility] [address] [place] [address] Dr. Helio Cee MCV (RBC) [Entitic vol] 94.0 fL Normal 81.0-99.0 [facility] Comment on above: Performed By: #### E RUR #### [facility] [address] [address] [address] Helio Cee MONO # 0.7 103/ul Normal 0.3-0.8 [facility] Comment on above: Performed By: #### E RUR #### [facility] [address] [address] [address] Helio Cee Monocytes/100 WBC (Bld) 7.8 % Normal 1.7-12.0 [facility] Comment on above: Performed By: #### E RUR #### [facility] [address] [place] [address] Dr. Helio Cee NEUT # 7.2 103/ul Critically high 1.4-6.5 [facility] Comment on above: Performed By: #### E RUR #### [facility] [address] [place] [address] Dr. Helio Cee Neutrophils/100 WBC (Bld) 78.4 % Critically high 43.0-75.0 [facility] Comment on above: Performed By: #### E RUR #### [facility] [address] [place] [address] Dr. Helio Cee Platelet mean volume (Bld) [Entitic vol] 10.6 fL Normal 9.5-13.5 [facility] Comment on above: Performed By: #### E RUR #### [facility] [address] [place] [address] Dr. Helio Cee PLT 278 103/ul Normal 150-450 [facility] Comment on above: Performed By: #### E RUR #### [facility] [address] [place] [address] Dr. Helio Cee RBC 4.03 106/ul Critically low 4.20-5.40 [facility] Comment on above: Performed By: #### E RUR #### [facility] [address] [place] [address] Dr. Helio Cee WBC 9.1 103/ul Normal 4.0-11.0 [facility] Comment on above: Performed By: #### E RUR #### [facility] [address] [place] [address] Dr. Helio Cee CTA CHEST WO W CONon --2 022 CTA CHEST WO W CON CT [...] Jay BARAHONA Date: 2021-11-22 16:47 Normal [facility] CULTURE BLOODon 11-22-2021 Microscopic examination of blood, culture Culture Observations: NO GROWTH AT 5 DAYS. Normal [facility] Comment on above: Performed By: #### B [id number] ####[facility] [address] [address]Dr. Helio Cee Microscopic examination of blood, culture Culture Observations: NO GROWTH AT 5 DAYS. Normal [facility] Comment on above: Performed By: #### B [id number] #### [facility] [address] [address] [address] Helio Cee [facility]11 SARS-CoV-2 (COVID-19) RNA KIMMY+probe Ql (Unsp spec) Not detected Normal NOT DETECTED [facility] Comment on above: Result Comment: When diagnostic [...] for this test is supported by the Press [employer] of Health and Human Service's declaration that [...] used). Performed By: #### C VDTBH #### [facility] [address] [address] [address] Helio Cee LACTATE/LACTIC ACIDon 2021 Lactate [Moles/Vol] mmol/L Critically low 0.4-1.9 [facility] Comment on above: Performed By: #### L ACT ####[facility] [address] [place], [place] [address]BqDr. Helio Cee PROF 14(COMP METB)on 022 Albumin [Mass/Vol] 3.1 g/dL Critically low 3.4-5.0 [facility] Comment on above: Performed By: #### V [id number] #### [facility] [id number] [address] Helio Cee Albumin/Globulin [Mass ratio] 0.8 {ratio} Normal [facility] Comment on above: Performed By: #### V [id number] #### [facility] [address] [address] [address] Helio Cee ALP [Catalytic activity/Vol] 92 U/L Normal 46-116 [facility] Comment on above: Performed By: #### V [id number] #### [facility] [address] [place] [address] Dr. Helio Cee ALT [Catalytic activity/Vol] 23 U/L Normal 14-59 [facility] Comment on above: Performed By: #### V [id number] #### [facility] [address] [address] [address] Helio Cee Anion gap [Moles/Vol] 12.8 mmol/L Normal [facility] Comment on above: Performed By: #### V [id number] #### [facility] [address] [place] [address] Dr. Helio Cee AST [Catalytic activity/Vol] 16 U/L Normal 15-37 [facility] Comment on above: Performed By: #### V [id number] #### [facility] [address] [place] [address] Dr. Helio Cee Bilirubin [Mass/Vol] 0.6 mg/dL Normal 0.2-1.0 [facility] Comment on above: Performed By: #### V [id number] #### [facility] [address] [place] [address] Dr. Helio Cee Calcium [Mass/Vol] 9.5 mg/dL Normal 8.5-10.1 [facility] Comment on above: Performed By: #### V [id number] #### [facility] [address] [place] [address] Dr. Helio Cee Chloride [Moles/Vol] 106 mmol/L Normal 98-107 [facility] Comment on above: Performed By: #### V [id number] #### [facility] [address] [place] [address] Dr. Helio Cee CO2 [Moles/Vol] 25.1 mmol/L Normal 21.0-32.0 [facility] Comment on above: Performed By: #### V [id number] #### [facility] [address] [address] [address] Helio Cee Creatinine [Mass/Vol] 1.06 mg/dL Critically high 0.55-1.02 [facility] Comment on above: Performed By: #### V [id number] #### [facility] [address] [address] [address] Helio Cee EGFR-AF MALTESE >60 Normal >=60 [facility] Comment on above: Performed By: #### V [id number] #### [facility] [address] [address] [address] Helio Cee EGFR-NON AF MALTESE 51 mL/min/1.73m2 Critically low >=60 [facility] Comment on above: Performed By: #### V [id number] #### [facility] [address] [address] [address] Helio Cee Globulin (S) [Mass/Vol] 4.1 g/dL Normal [facility] Comment on above: Performed By: #### V [id number] #### [facility] [address] [address] [address] Helio Cee Glucose [Mass/Vol] 99 mg/dL Normal 74-106 [facility] Comment on above: Performed By: #### V [id number] #### [facility] [address] [address] [address] Helio Cee Potassium [Moles/Vol] 3.9 mmol/L Normal 3.5-5.1 [facility] Comment on above: Performed By: #### V [id number] #### [facility] [address] [address] [address] Helio Cee Protein [Mass/Vol] 7.2 g/dL Normal 6.4-8.2 [facility] Comment on above: Performed By: #### V [id number] #### [facility] [address] [address] [address] Helio Cee Sodium [Moles/Vol] 140 mmol/L Normal 136-145 [facility] Comment on above: Performed By: #### V [id number] #### [facility] [address] [address] [address] Helio Cee Urea nitrogen [Mass/Vol] 15.0 mg/dL Normal 7.0-18.0 [facility] Comment on above: Performed By: #### V [id number] #### [facility] [address] [address] [address] Helio Cee Urea nitrogen/Creatinine [Mass ratio] 14.2 mg/mg Normal [facility] Comment on above: Performed By: #### V [id number] #### [facility] [address] [address] [address] Helio Cee TROPONIN, HIGH SENSITIVITYon 11-22-2021 HSTROP 11.6 pg/mL Normal 4.0-51.3 [facility] Comment on above: Result Comment: CUT- OFF POINTS HAVE BEEN ESTABLISHED BASED ON THE FOURTH UNIVERSAL DEFINITIONS OF MYOCARDIAL INFARCTION. THE UPPER REFERENCE LIMIT (URL) OF TROPONIN, DEFINED THE 99TH PERCENTILE OF cTnI DISTRIBUTION IN A REFERENCE POPULATION, HAS BEEN CONFIRMED THE DECISION THRESHOLD FOR [place] DIAGNOSIS. Performed By: #### V [id number] #### [facility] [address] [place] [address] Dr. Helio Cee XR CHEST 2 Von [...] ISAC CONNOR Date: 2021-11-22 14:20 Normal [facility] BNPon 11-21-2021 Natriuretic peptide B (Bld) [Mass/Vol] 953.0 pg/mL Critically high <=900.0 [facility] Comment on above: Performed By: #### E RUR #### [facility] [address] [place] [address] Dr. Helio Cee CBC AUTO DIFFon 11-21-2021 BASO # 0.0 103/ul Normal 0.0-0.1 [facility] Comment on above: Performed By: #### E RUR #### [facility] [address] [address] [address] Helio Cee Basophils/100 WBC (Bld) 0.4 % Normal 0.2-2.0 [facility] Comment on above: Performed By: #### E RUR #### [facility] [address] [address] [address] Helio Cee EO # 0.1 103/ul Normal 0.0-0.7 [facility] Comment on above: Performed By: #### E RUR #### [facility] [address] [place] [address] Dr. Helio Cee Eosinophils/100 WBC (Bld) 1.1 % Normal 0.9-7.0 [facility] Comment on above: Performed By: #### E RUR #### [facility] [address] [place] [address] Dr. Helio Cee Erythrocyte distribution width (RBC) [Ratio] 14.6 % Normal 11.0-15.0 [facility] Comment on above: Performed By: #### E RUR #### [facility] [address] [place] [address] Dr. Helio Cee Hematocrit (Bld) [Volume fraction] 35.2 % Critically low 36.0-48.0 [facility] Comment on above: Performed By: #### E RUR #### [facility] [address] [place] [address] Dr. Helio Cee Hemoglobin (Bld) [Mass/Vol] 10.9 g/dL Critically low 12.0-16.0 [facility] Comment on above: Performed By: #### E RUR #### [facility] [address] [place] [address] Dr. Helio Cee IG # 0.07 10e3/ul Critically high 0.00-0.03 [facility] Comment on above: Performed By: #### E RUR #### [facility] [address] [address] [address] Helio Cee IG % 0.7 % Critically high 0.0-0.5 [facility] Comment on above: Performed By: #### E RUR #### [facility] [address] [address] [address] Helio Cee LYMPH # 1.4 103/ul Normal 1.2-3.8 [facility] Comment on above: Performed By: #### E RUR #### [facility] [address] [place] [address] Dr. Helio Cee Lymphocytes/100 WBC (Bld) 13.3 % Critically low 20.5-60.0 [facility] Comment on above: Performed By: #### E RUR #### [facility] [address] [place] [address] Dr. Helio Cee MANUAL DIFF REQ NO Normal [facility] Comment on above: Performed By: #### E RUR #### [facility] [address] [place] [address] Dr. Helio Cee MCH (RBC) [Entitic mass] 29.5 pg Normal 26.7-34.0 [facility] Comment on above: Performed By: #### E RUR #### [facility] [address] [place] [address] Dr. Helio Cee MCHC (RBC) [Mass/Vol] 31.0 g/dL Normal 29.9-35.2 [facility] Comment on above: Performed By: #### E RUR #### [facility] [address] [place] [address] Dr. Helio Cee MCV (RBC) [Entitic vol] 95.4 fL Normal 81.0-99.0 [facility] Comment on above: Performed By: #### E RUR #### [facility] [address] [place] [address] Dr. Helio Cee MONO # 0.8 103/ul Normal 0.3-0.8 [facility] Comment on above: Performed By: #### E RUR #### [facility] [address] [place] [address] Dr. Helio Cee Monocytes/100 WBC (Bld) 7.3 % Normal 1.7-12.0 [facility] Comment on above: Performed By: #### E RUR #### [facility] [address] [place] [address] Dr. Helio Cee NEUT # 7.9 103/ul Critically high 1.4-6.5 [facility] Comment on above: Performed By: #### E RUR #### [facility] [address] [place] [address] Dr. Helio Cee Neutrophils/100 WBC (Bld) 77.2 % Critically high 43.0-75.0 [facility] Comment on above: Performed By: #### E RUR #### [facility] [address] [place] [address] Dr. Helio Cee Platelet mean volume (Bld) [Entitic vol] 11.1 fL Normal 9.5-13.5 [facility] Comment on above: Performed By: #### E RUR #### [facility] [address] [place] [address] Dr. Helio Cee PLT 245 103/ul Normal 150-450 [facility] Comment on above: Performed By: #### E RUR #### [facility] [address] [place] [address] Dr. Helio Cee RBC 3.69 106/ul Critically low 4.20-5.40 [facility] Comment on above: Performed By: #### E RUR #### [facility] [address] [place] [address] Dr. Helio Cee WBC 10.2 103/ul Normal 4.0-11.0 [facility] Comment on above: Performed By: #### E RUR #### [facility] [address] [place] [address] Dr. Helio Cee PROF 14(COMP METB)on 022 Albumin [Mass/Vol] 2.6 g/dL Critically low 3.4-5.0 [facility] Comment on above: Performed By: #### V [id number] #### [facility] [address] [place] [address] Dr. Helio Cee Albumin/Globulin [Mass ratio] 0.7 {ratio} Normal [facility] Comment on above: Performed By: #### V [id number] #### [facility] [address] [address] [address] Helio Cee ALP [Catalytic activity/Vol] 75 U/L Normal 46-116 [facility] Comment on above: Performed By: #### V [id number] #### [facility] [address] [place] [address] Dr. Helio Cee ALT [Catalytic activity/Vol] 19 U/L Normal 14-59 [facility] Comment on above: Performed By: #### V [id number] #### [facility] [address] [place] [address] Dr. Helio Cee Anion gap [Moles/Vol] 11.7 mmol/L Normal [facility] Comment on above: Performed By: #### V [id number] #### [facility] [address] [place] [address] Dr. Helio Cee AST [Catalytic activity/Vol] 8 U/L Critically low 15-37 [facility] Comment on above: Performed By: #### V [id number] #### [facility] [address] [place] [address] Dr. Helio Cee Bilirubin [Mass/Vol] 0.3 mg/dL Normal 0.2-1.0 [facility] Comment on above: Performed By: #### V [id number] #### [facility] [address] [place] [address] Dr. Helio Cee Calcium [Mass/Vol] 9.0 mg/dL Normal 8.5-10.1 [facility] Comment on above: Performed By: #### V [id number] #### [facility] [address] [place] [address] Dr. Helio Cee Chloride [Moles/Vol] 107 mmol/L Normal 98-107 [facility] Comment on above: Performed By: #### V [id number] #### [facility] [address] [address] [address] Helio Cee CO2 [Moles/Vol] 24.7 mmol/L Normal 21.0-32.0 [facility] Comment on above: Performed By: #### V [id number] #### [facility] [address] [address] [address] Helio Cee Creatinine [Mass/Vol] 0.91 mg/dL Normal 0.55-1.02 [facility] Comment on above: Performed By: #### V [id number] #### [facility] [address] [address] [address] Helio Cee EGFR-AF MALTESE >60 Normal >=60 [facility] Comment on above: Performed By: #### V [id number] #### [facility] [address] [address] [address] Helio Cee EGFR-NON AF MALTESE 60 mL/min/1.73m2 Normal >=60 [facility] Comment on above: Performed By: #### V [id number] #### [facility] [address] [address] [address] Helio Cee Globulin (S) [Mass/Vol] 3.9 g/dL Normal [facility] Comment on above: Performed By: #### V [id number] #### [facility] [address] [address] [address] Heloi Cee Glucose [Mass/Vol] 131 mg/dL Critically high 74-106 [facility] Comment on above: Performed By: #### V [id number] #### [facility] [address] [address] [address] Helio Cee Potassium [Moles/Vol] 3.4 mmol/L Critically low 3.5-5.1 [facility] Comment on above: Performed By: #### V [id number] #### [facility] [address] [address] [address] Helio Cee Protein [Mass/Vol] 6.5 g/dL Normal 6.4-8.2 [facility] Comment on above: Performed By: #### V [id number] #### [facility] [address] [place] [address] Dr. Helio Cee Sodium [Moles/Vol] 140 mmol/L Normal 136-145 [facility] Comment on above: Performed By: #### V [id number] #### [facility] [address] [place] [address] Dr. Helio Cee Urea nitrogen [Mass/Vol] 14.0 mg/dL Normal 7.0-18.0 [facility] Comment on above: Performed By: #### V [id number] #### [facility] [address] [place] [address] Dr. Helio Cee Urea nitrogen/Creatinine [Mass ratio] 15.4 mg/mg Normal [facility] Comment on above: Performed By: #### V [id number] #### [facility] [address] [place] [address] Dr. Helio Cee BNPon 11-20-2021 Natriuretic peptide B (Bld) [Mass/Vol] 781.0 pg/mL Normal <=900.0 [facility] Comment on above: Performed By: #### E RUR #### [facility] [address] [place] [address] Dr. Helio Cee CBC AUTO DIFFon 11-20-2021 BASO # 0.0 103/ul Normal 0.0-0.1 [facility] Comment on above: Performed By: #### V [id number] #### [facility] [address] [place] [address] Dr. Helio Cee Basophils/100 WBC (Bld) 0.3 % Normal 0.2-2.0 [facility] Comment on above: Performed By: #### V [id number] #### [facility] [address] [place] [address] Dr. Helio Cee EO # 0.1 103/ul Normal 0.0-0.7 [facility] Comment on above: Performed By: #### V [id number] #### [facility] [address] [place] [address] Dr. Helio Cee Eosinophils/100 WBC (Bld) 0.5 % Critically low 0.9-7.0 [facility] Comment on above: Performed By: #### V [id number] #### [facility] [address] [place] [address] Dr. Helio Cee Erythrocyte distribution width (RBC) [Ratio] 14.5 % Normal 11.0-15.0 [facility] Comment on above: Performed By: #### V [id number] #### [facility] [address] [place] [address] Dr. Helio Cee Hematocrit (Bld) [Volume fraction] 36.6 % Normal 36.0-48.0 [facility] Comment on above: Performed By: #### V [id number] #### [facility] [address] [place] [address] Dr. Helio Cee Hemoglobin (Bld) [Mass/Vol] 11.5 g/dL Critically low 12.0-16.0 [facility] Comment on above: Performed By: #### V [id number] #### [facility] [address] [place] [address] Dr. Helio Cee IG # 0.07 10e3/ul Critically high 0.00-0.03 [facility] Comment on above: Performed By: #### V [id number] #### [facility] [address] [place] [address] Dr. Helio eCe IG % 0.5 % Normal 0.0-0.5 [facility] Comment on above: Performed By: #### V [id number] #### [facility] [address] [place] [address] Dr. Helio Cee LYMPH # 1.2 103/ul Normal 1.2-3.8 [facility] Comment on above: Performed By: #### V [id number] #### [facility] [address] [place] [address] Dr. Helio Cee Lymphocytes/100 WBC (Bld) 9.5 % Critically low 20.5-60.0 [facility] Comment on above: Performed By: #### V [id number] #### [facility] [address] [place] [address] Dr. Helio Cee MANUAL DIFF REQ NO Normal [facility] Comment on above: Performed By: #### V [id number] #### [facility] [address] [place] [address] Dr. Helio Cee MCH (RBC) [Entitic mass] 30.2 pg Normal 26.7-34.0 [facility] Comment on above: Performed By: #### V [id number] #### [facility] [address] [place] [address] Dr. Helio Cee MCHC (RBC) [Mass/Vol] 31.4 g/dL Normal 29.9-35.2 [facility] Comment on above: Performed By: #### V [id number] #### [facility] [address] [place] [address] Dr. Helio Cee MCV (RBC) [Entitic vol] 96.1 fL Normal 81.0-99.0 [facility] Comment on above: Performed By: #### V [id number] #### [facility] [address] [place] [address] Dr. Helio Cee MONO # 0.7 103/ul Normal 0.3-0.8 [facility] Comment on above: Performed By: #### V [id number] #### [facility] [address] [place] [address] Dr. Helio Cee Monocytes/100 WBC (Bld) 5.7 % Normal 1.7-12.0 [facility] Comment on above: Performed By: #### V [id number] #### [facility] [address] [place] [address] Dr. Helio Cee NEUT # 10.8 103/ul Critically high 1.4-6.5 [facility] Comment on above: Performed By: #### V [id number] #### [facility] [address] [place] [address] Dr. Helio Cee Neutrophils/100 WBC (Bld) 83.5 % Critically high 43.0-75.0 [facility] Comment on above: Performed By: #### V [id number] #### [facility] [address] [place] [address] Dr. Helio Cee Platelet mean volume (Bld) [Entitic vol] 11.1 fL Normal 9.5-13.5 [facility] Comment on above: Performed By: #### V [id number] #### [facility] [address] [place] [address] Dr. Helio Cee PLT 231 103/ul Normal 150-450 [facility] Comment on above: Performed By: #### V [id number] #### [facility] [address] [place] [address] Dr. Helio Cee RBC 3.81 106/ul Critically low 4.20-5.40 [facility] Comment on above: Performed By: #### V [id number] #### [facility] [address] [place] [address] Dr. Helio Cee WBC 13.0 103/ul Critically high 4.0-11.0 [facility] Comment on above: Performed By: #### V [id number] #### [facility] [address] [place] [address] Dr. Helio Cee PROF 14(COMP METB)on 022 Albumin [Mass/Vol] 2.9 g/dL Critically low 3.4-5.0 [facility] Comment on above: Performed By: #### E RUR #### [facility] [address] [place] [address] Dr. Helio Cee Albumin/Globulin [Mass ratio] 0.8 {ratio} Normal [facility] Comment on above: Performed By: #### E RUR #### [facility] [address] [place] [address] Dr. Helio Cee ALP [Catalytic activity/Vol] 81 U/L Normal 46-116 [facility] Comment on above: Performed By: #### E RUR #### [facility] [address] [place] [address] Dr. Helio Cee ALT [Catalytic activity/Vol] 21 U/L Normal 14-59 [facility] Comment on above: Performed By: #### E RUR #### [facility] [address] [place] [address] Dr. Helio Cee Anion gap [Moles/Vol] 12.4 mmol/L Normal [facility] Comment on above: Performed By: #### E RUR #### [facility] [address] [address] [address] Helio Cee AST [Catalytic activity/Vol] 11 U/L Critically low 15-37 [facility] Comment on above: Performed By: #### E RUR #### [facility] [address] [address] [address] Helio Cee Bilirubin [Mass/Vol] 0.4 mg/dL Normal 0.2-1.0 [facility] Comment on above: Performed By: #### E RUR #### [facility] [address] [address] [address] Helio Cee Calcium [Mass/Vol] 8.7 mg/dL Normal 8.5-10.1 [facility] Comment on above: Performed By: #### E RUR #### [facility] [address] [address] [address] Helio Cee Chloride [Moles/Vol] 108 mmol/L Critically high 98-107 [facility] Comment on above: Performed By: #### E RUR #### [facility] [address] [address] [address] Helio Cee CO2 [Moles/Vol] 24.2 mmol/L Normal 21.0-32.0 [facility] Comment on above: Performed By: #### E RUR #### [facility] [address] [address] [address] Helio Cee Creatinine [Mass/Vol] 1.03 mg/dL Critically high 0.55-1.02 [facility] Comment on above: Performed By: #### E RUR #### [facility] [address] [address] [address] Helio Cee EGFR-AF MALTESE >60 Normal >=60 [facility] Comment on above: Performed By: #### E RUR #### [facility] [address] [address] [address] Helio Cee EGFR-NON AF MALTESE 52 mL/min/1.73m2 Critically low >=60 [facility] Comment on above: Performed By: #### E RUR #### [facility] [address] [address] [address] Helio Cee Globulin (S) [Mass/Vol] 3.5 g/dL Normal [facility] Comment on above: Performed By: #### E RUR #### [facility] [address] [address] [address] Helio Cee Glucose [Mass/Vol] 142 mg/dL Critically high 74-106 [facility] Comment on above: Performed By: #### E RUR #### [facility] [address] [address] [address] Helio Cee Potassium [Moles/Vol] 3.6 mmol/L Normal 3.5-5.1 [facility] Comment on above: Performed By: #### E RUR #### [facility] [address] [place] [address] Dr. Helio Cee Protein [Mass/Vol] 6.4 g/dL Normal 6.4-8.2 [facility] Comment on above: Performed By: #### E RUR #### [facility] [address] [address] [address] Helio Cee Sodium [Moles/Vol] 141 mmol/L Normal 136-145 [facility] Comment on above: Performed By: #### E RUR #### [facility] [address] [address] [address] Helio Cee Urea nitrogen [Mass/Vol] 19.0 mg/dL Critically high 7.0-18.0 [facility] Comment on above: Performed By: #### E RUR #### [facility] [address] [address] [address] Helio Cee Urea nitrogen/Creatinine [Mass ratio] 18.4 mg/mg Normal [facility] Comment on above: Performed By: #### E RUR #### [facility] [address] [address] [address] Helio Cee XR CHEST 2 Von [...] EUN BARRY Date: 2021-11-20 07:56 Normal [facility] BNPon 11-19-2021 Natriuretic peptide B (Bld) [Mass/Vol] 777.0 pg/mL Normal <=900.0 [facility] Comment on above: Performed By: #### E RUR #### [facility] [address] [place] [address] Dr. Helio Cee CBC AUTO DIFFon 11-19-2021 BASO # 0.0 103/ul Normal 0.0-0.1 [facility] Comment on above: Performed By: #### V [id number] #### [facility] [address] [place] [address] Dr. Helio Cee Basophils/100 WBC (Bld) 0.2 % Normal 0.2-2.0 [facility] Comment on above: Performed By: #### V [id number] #### [facility] [address] [place] [address] Dr. Helio Cee EO # 0.1 103/ul Normal 0.0-0.7 [facility] Comment on above: Performed By: #### V [id number] #### [facility] [address] [place] [address] Dr. Helio Cee Eosinophils/100 WBC (Bld) 0.5 % Critically low 0.9-7.0 [facility] Comment on above: Performed By: #### V [id number] #### [facility] [address] [place] [address] Dr. Helio Cee Erythrocyte distribution width (RBC) [Ratio] 14.6 % Normal 11.0-15.0 [facility] Comment on above: Performed By: #### V [id number] #### [facility] [address] [place] [address] Dr. Helio Cee Hematocrit (Bld) [Volume fraction] 37.4 % Normal 36.0-48.0 [facility] Comment on above: Performed By: #### V [id number] #### [facility] [address] [place] [address] Dr. Helio Cee Hemoglobin (Bld) [Mass/Vol] 11.5 g/dL Critically low 12.0-16.0 [facility] Comment on above: Performed By: #### V [id number] #### [facility] [address] [place] [address] Dr. Helio Cee IG # 0.07 10e3/ul Critically high 0.00-0.03 [facility] Comment on above: Performed By: #### V [id number] #### [facility] [address] [place] [address] Dr. Helio Cee IG % 0.5 % Normal 0.0-0.5 [facility] Comment on above: Performed By: #### V [id number] #### [facility] [address] [place] [address] Dr. Helio Cee LYMPH # 1.1 103/ul Critically low 1.2-3.8 [facility] Comment on above: Performed By: #### V [id number] #### [facility] [address] [place] [address] Dr. Helio Cee Lymphocytes/100 WBC (Bld) 6.8 % Critically low 20.5-60.0 [facility] Comment on above: Performed By: #### V [id number] #### [facility] [address] [place] [address] Dr. Helio Cee MANUAL DIFF REQ NO Normal [facility] Comment on above: Performed By: #### V [id number] #### [facility] [address] [place] [address] Dr. Helio Cee MCH (RBC) [Entitic mass] 30.1 pg Normal 26.7-34.0 [facility] Comment on above: Performed By: #### V [id number] #### [facility] [address] [place] [address] Dr. Helio Cee MCHC (RBC) [Mass/Vol] 30.7 g/dL Normal 29.9-35.2 [facility] Comment on above: Performed By: #### V [id number] #### [facility] [address] [address] [address] Helio Cee MCV (RBC) [Entitic vol] 97.9 fL Normal 81.0-99.0 [facility] Comment on above: Performed By: #### V [id number] #### [facility] [address] [address] [address] Helio Cee MONO # 0.8 103/ul Normal 0.3-0.8 [facility] Comment on above: Performed By: #### V [id number] #### [facility] [address] [address] [address] Helio Cee Monocytes/100 WBC (Bld) 5.3 % Normal 1.7-12.0 [facility] Comment on above: Performed By: #### V [id number] #### [facility] [address] [address] [address] Helio Cee NEUT # 13.3 103/ul Critically high 1.4-6.5 [facility] Comment on above: Performed By: #### V [id number] #### [facility] [address] [address] [address] Helio Cee Neutrophils/100 WBC (Bld) 86.7 % Critically high 43.0-75.0 [facility] Comment on above: Performed By: #### V [id number] #### [facility] [address] [address] [address] Helio Cee Platelet mean volume (Bld) [Entitic vol] 11.4 fL Normal 9.5-13.5 [facility] Comment on above: Performed By: #### V [id number] #### [facility] [address] [address] [address] Helio Cee PLT 215 103/ul Normal 150-450 [facility] Comment on above: Performed By: #### V [id number] #### [facility] [address] [place] [address] Dr. Helio Cee RBC 3.82 106/ul Critically low 4.20-5.40 [facility] Comment on above: Performed By: #### V [id number] #### [facility] [address] [place] [address] Dr. Helio Cee WBC 15.3 103/ul Critically high 4.0-11.0 [facility] Comment on above: Performed By: #### V [id number] #### [facility] [address] [place] [address] Dr. Helio Cee PROF 14(COMP METB)on 022 Albumin [Mass/Vol] 2.8 g/dL Critically low 3.4-5.0 [facility] Comment on above: Performed By: #### E RUR #### [facility] [address] [place] [address] Dr. Helio Cee Albumin/Globulin [Mass ratio] 0.8 {ratio} Normal [facility] Comment on above: Performed By: #### E RUR #### [facility] [address] [place] [address] Dr. Helio Cee ALP [Catalytic activity/Vol] 74 U/L Normal 46-116 [facility] Comment on above: Performed By: #### E RUR #### [facility] [address] [place] [address] Dr. Helio Cee ALT [Catalytic activity/Vol] 21 U/L Normal 14-59 [facility] Comment on above: Performed By: #### E RUR #### [facility] [address] [place] [address] Dr. Helio Cee Anion gap [Moles/Vol] 13.5 mmol/L Normal [facility] Comment on above: Performed By: #### E RUR #### [facility] [address] [place] [address] Dr. Helio Cee AST [Catalytic activity/Vol] 11 U/L Critically low 15-37 [facility] Comment on above: Performed By: #### E RUR #### [facility] [address] [address] [address] Helio Cee Bilirubin [Mass/Vol] 0.5 mg/dL Normal 0.2-1.0 [facility] Comment on above: Performed By: #### E RUR #### [facility] [address] [place] [address] Dr. Helio Cee Calcium [Mass/Vol] 8.4 mg/dL Critically low 8.5-10.1 [facility] Comment on above: Performed By: #### E RUR #### [facility] [address] [place] [address] Dr. Helio Cee Chloride [Moles/Vol] 107 mmol/L Normal 98-107 [facility] Comment on above: Performed By: #### E RUR #### [facility] [address] [place] [address] Dr. Helio Cee CO2 [Moles/Vol] 21.0 mmol/L Normal 21.0-32.0 [facility] Comment on above: Performed By: #### E RUR #### [facility] [address] [place] [address] Dr. Helio Cee Creatinine [Mass/Vol] 1.07 mg/dL Critically high 0.55-1.02 [facility] Comment on above: Performed By: #### E RUR #### [facility] [address] [place] [address] Dr. Helio Cee EGFR-AF MALTESE >60 Normal >=60 [facility] Comment on above: Performed By: #### E RUR #### [facility] [address] [place] [address] Dr. Helio Cee EGFR-NON AF MALTESE 50 mL/min/1.73m2 Critically low >=60 [facility] Comment on above: Performed By: #### E RUR #### [facility] [address] [place] [address] Dr. Helio Cee Globulin (S) [Mass/Vol] 3.4 g/dL Normal [facility] Comment on above: Performed By: #### E RUR #### [facility] [address] [place] [address] Dr. Helio Cee Glucose [Mass/Vol] 109 mg/dL Critically high 74-106 [facility] Comment on above: Performed By: #### E RUR #### [facility] [address] [address] [address] Helio Cee Potassium [Moles/Vol] 3.5 mmol/L Normal 3.5-5.1 [facility] Comment on above: Performed By: #### E RUR #### [facility] [address] [address] [address] Helio Cee Protein [Mass/Vol] 6.2 g/dL Critically low 6.4-8.2 Th [facility] Comment on above: Performed By: #### E RUR #### [facility] [address] [address] [address] Helio Cee Sodium [Moles/Vol] 138 mmol/L Normal 136-145 [facility] Comment on above: Performed By: #### E RUR #### [facility] [address] [address] [address] Helio Cee Urea nitrogen [Mass/Vol] 25.0 mg/dL Critically high 7.0-18.0 [facility] Comment on above: Performed By: #### E RUR #### [facility] [address] [address] [address] Helio Cee Urea nitrogen/Creatinine [Mass ratio] 23.4 mg/mg Normal [facility] Comment on above: Performed By: #### E RUR #### [facility] [address] [address] [address] Helio Cee BNPon 11-18-2021 Natriuretic peptide B (Bld) [Mass/Vol] 386.0 pg/mL Normal <=900.0 [facility] Comment on above: Performed By: #### B CONTINUOUS PROCESS [employer] DRUM, HSTROPN, BMP ####[facility] [id number] [address]Dr. Helio Cee CBC AUTO DIFFon 11-18-2021 BASO # 0.0 103/ul Normal 0.0-0.1 [facility] Comment on above: Performed By: #### V [id number] #### [facility] [address] [address] [address] Helio Cee Basophils/100 WBC (Bld) 0.3 % Normal 0.2-2.0 [facility] Comment on above: Performed By: #### V [id number] #### [facility] [address] [place] [address] Dr. Helio Cee EO # 0.0 103/ul Normal 0.0-0.7 [facility] Comment on above: Performed By: #### V [id number] #### [facility] [address] [place] [address] Dr. Helio Cee Eosinophils/100 WBC (Bld) 0.1 % Critically low 0.9-7.0 [facility] Comment on above: Performed By: #### V [id number] #### [facility] [address] [place] [address] Dr. Helio Cee Erythrocyte distribution width (RBC) [Ratio] 14.4 % Normal 11.0-15.0 [facility] Comment on above: Performed By: #### V [id number] #### [facility] [address] [place] [address] Dr. Helio Cee Hematocrit (Bld) [Volume fraction] 43.6 % Normal 36.0-48.0 [facility] Comment on above: Performed By: #### V [id number] #### [facility] [address] [place] [address] Dr. Helio Cee Hemoglobin (Bld) [Mass/Vol] 13.4 g/dL Normal 12.0-16.0 [facility] Comment on above: Performed By: #### V [id number] #### [facility] [address] [place] [address] Dr. Helio Cee IG # 0.03 10e3/ul Normal 0.00-0.03 [facility] Comment on above: Performed By: #### V [id number] #### [facility] [address] [place] [address] Dr. Helio Cee IG % 0.3 % Normal 0.0-0.5 [facility] Comment on above: Performed By: #### V [id number] #### [facility] [address] [address] [address] Helio Cee LYMPH # 0.4 103/ul Critically low 1.2-3.8 [facility] Comment on above: Performed By: #### V [id number] #### [facility] [address] [address] [address] Helio Cee Lymphocytes/100 WBC (Bld) 4.0 % Critically low 20.5-60.0 [facility] Comment on above: Performed By: #### V [id number] #### [facility] [address] [place] [address] Dr. Helio Cee MANUAL DIFF REQ NO Normal [facility] Comment on above: Performed By: #### V [id number] #### [facility] [address] [place] [address] Dr. Helio Cee MCH (RBC) [Entitic mass] 29.6 pg Normal 26.7-34.0 [facility] Comment on above: Performed By: #### V [id number] #### [facility] [address] [place] [address] Dr. Helio Cee MCHC (RBC) [Mass/Vol] 30.7 g/dL Normal 29.9-35.2 [facility] Comment on above: Performed By: #### V [id number] #### [facility] [address] [place] [address] Dr. Helio Cee MCV (RBC) [Entitic vol] 96.5 fL Normal 81.0-99.0 [facility] Comment on above: Performed By: #### V [id number] #### [facility] [address] [address] [address] Helio Cee MONO # 0.6 103/ul Normal 0.3-0.8 [facility] Comment on above: Performed By: #### V [id number] #### [facility] [address] [address] [address] Helio Cee Monocytes/100 WBC (Bld) 5.4 % Normal 1.7-12.0 [facility] Comment on above: Performed By: #### V [id number] #### [facility] [address] [place] [address] Dr. Helio Cee NEUT # 9.7 103/ul Critically high 1.4-6.5 [facility] Comment on above: Performed By: #### V [id number] #### [facility] [address] [place] [address] Dr. Helio Cee Neutrophils/100 WBC (Bld) 89.9 % Critically high 43.0-75.0 [facility] Comment on above: Performed By: #### V [id number] #### [facility] [address] [place] [address] Dr. Helio Cee Platelet mean volume (Bld) [Entitic vol] 10.9 fL Normal 9.5-13.5 [facility] Comment on above: Performed By: #### V [id number] #### [facility] [address] [place] [address] Dr. Helio Cee PLT 265 103/ul Normal 150-450 [facility] Comment on above: Performed By: #### V [id number] #### [facility] [address] [place] [address] Dr. Helio Cee RBC 4.52 106/ul Normal 4.20-5.40 [facility] Comment on above: Performed By: #### V [id number] #### [facility] [address] [place] [address] Dr. Helio Cee WBC 10.7 103/ul Normal 4.0-11.0 [facility] Comment on above: Performed By: #### V [id number] #### [facility] [address] [place] [address] Dr. Helio Cee CULTURE BLOODon 11-18-2021 Microscopic examination of blood, culture Culture Observations: NO GROWTH AT 5 DAYS. Normal [facility] Comment on above: Performed By: #### B [id number] #### [facility] [address] [place] [address] Dr. Helio Cee Microscopic examination of blood, culture Culture Observations: NO GROWTH AT 5 DAYS. Normal [facility] Comment on above: Performed By: #### B [id number] #### [facility] [address] [place] [address] Dr. Helio Cee Covid-19 PCR ([facility])on SARS-CoV-2 (COVID-19) RNA KIMMY+probe Ql (Unsp spec) Not detected Normal NOT DETECTED [facility] Comment on above: Result Comment: When diagnostic [...] for this test is supported by the Press [employer] of Health and Human Service's declaration that [...] used). Performed By: #### E RUR #### [facility] [address] [place] [address] Dr. Helio Cee ER URINE PROFILEon 2 Bilirubin Ql (U) Negative Normal NEGATIVE [facility] Comment on above: Performed By: #### E RUR #### [facility] [address] [place] [address] Dr. Helio Cee Clarity (U) CLEAR Normal CLEAR [facility] Comment on above: Performed By: #### E RUR #### [facility] [address] [place] [address] Dr. Helio Cee Color (U) LT. YELLOW Normal YELLOW [facility] Comment on above: Performed By: #### E RUR #### [facility] [address] [place] [address] Dr. Helio Cee ERUD A micrscopic examination will be performed if indicated. Normal [facility] Comment on above: Performed By: #### E RUR #### [facility] [address] [place] [address] Dr. Helio Cee Glucose Ql (U) Negative Normal NEGATIVE [facility] Comment on above: Performed By: #### E RUR #### [facility] [address] [place] [address] Dr. Helio Cee Hemoglobin Ql (U) Negative Normal NEGATIVE [facility] Comment on above: Performed By: #### E RUR #### [facility] [address] [place] [address] Dr. Helio Cee Ketones Ql (U) Negative Normal NEGATIVE [facility] Comment on above: Performed By: #### E RUR #### [facility] [address] [place] [address] Dr. Helio Cee LEUKOCYTES Negative Normal NEGATIVE [facility] Comment on above: Performed By: #### E RUR #### [facility] [address] [place] [address] Dr. Helio Cee Nitrite Ql (U) Negative Normal NEGATIVE [facility] Comment on above: Performed By: #### E RUR #### [facility] [address] [place] [address] Dr. Helio Cee pH (U) 5.5 [pH] Normal 5-9 [facility] Comment on above: Performed By: #### E RUR #### [facility] [address] [place] [address] Dr. Helio Cee SPEC GRAVITY 1.015 Normal 1.005-<=1.02 5 [facility] Comment on above: Performed By: #### E RUR #### [facility] [address] [place] [address] Dr. Helio Cee UA PROTEIN Negative Normal NEGATIVE/ TRACE [facility] Comment on above: Performed By: #### E RUR #### [facility] [address] [place] [address] Dr. Helio Cee UR MICRO IND NOT INDICATED Normal [facility] Comment on above: Performed By: #### E RUR #### [facility] [address] [address] [address] Helio Cee Urobilinogen Qn (U) 0.2 {Nevaeh'U}/dL Normal 0.2 - 1. 0 [facility] Comment on above: Performed By: #### E RUR #### [facility] [address] [address] [address] Helio Cee PROF CHEM 8 (BAS METB)on Anion gap [Moles/Vol] 13.6 mmol/L Normal [facility] Comment on above: Performed By: #### B CONTINUOUS PROCESS [employer] DRUM, HSTROPMegha, BMP ####[facility] [address] [address]Dr. Helio Cee Calcium [Mass/Vol] 9.1 mg/dL Normal 8.5-10.1 [facility] Comment on above: Performed By: #### B CONTINUOUS PROCESS [employer] DRUM, HSTROPN, BMP ####[facility] [address] [address]Dr. Helio Cee Chloride [Moles/Vol] 110 mmol/L Critically high 98-107 [facility] Comment on above: Performed By: #### B CONTINUOUS PROCESS [employer] DRUM, HSTROPN, BMP ####[facility] [address] [address]Dr. Helio Cee CO2 [Moles/Vol] 22.9 mmol/L Normal 21.0-32.0 [facility] Comment on above: Performed By: #### B CONTINUOUS PROCESS [employer] DRUM, HSTROPN, BMP ####[facility] [address] [address]Dr. Helio Cee Creatinine [Mass/Vol] 1.47 mg/dL Critically high 0.55-1.02 [facility] Comment on above: Performed By: #### B CONTINUOUS PROCESS [employer] DRUM, HSTROPN, BMP ####[facility] [address] [address]Dr. Helio Cee EGFR-AF MALTESE 42 mL/min/1.73m2 Critically low >=60 [facility] Comment on above: Performed By: #### B CONTINUOUS PROCESS [employer] DRUM, HSTROPN, BMP ####[facility] [address] [address]Dr. Helio Cee EGFR-NON AF MALTESE 35 mL/min/1.73m2 Critically low >=60 [facility] Comment on above: Performed By: #### B CONTINUOUS PROCESS [employer] DRUM, HSTROPN, BMP ####[facility] [address] [address]Dr. Helio Cee Glucose [Mass/Vol] 120 mg/dL Critically high 74-106 [facility] Comment on above: Performed By: #### B CONTINUOUS PROCESS [employer] DRUM, HSTROPN, BMP ####[facility] [address] [address]Dr. Helio Cee Potassium [Moles/Vol] 3.5 mmol/L Normal 3.5-5.1 [facility] Comment on above: Performed By: #### B CONTINUOUS PROCESS [employer] DRUM, HSTROPN, BMP ####[facility] [address] [place], [place] [address]Dr. Helio Cee Sodium [Moles/Vol] 143 mmol/L Normal 136-145 [facility] Comment on above: Performed By: #### B CONTINUOUS PROCESS [employer] DRUM, HSTROPN, BMP ####[facility] [address] [address]Dr. Helio Cee Urea nitrogen [Mass/Vol] 29.0 mg/dL Critically high 7.0-18.0 [facility] Comment on above: Performed By: #### B CONTINUOUS PROCESS [employer] DRUM, HSTROPN, BMP ####[facility] [address] [address]Dr. Helio Cee Urea nitrogen/Creatinine [Mass ratio] 19.7 mg/mg Normal [facility] Comment on above: Performed By: #### B CONTINUOUS PROCESS [employer] DRUM, HSTROPN, BMP ####[facility] [address] [place], [place] [address]Dr. Helio Cee TROPONIN, HIGH SENSITIVITYon 11-18-2021 HSTROP 8.2 pg/mL Normal 4.0-51.3 [facility] Comment on above: Result Comment: CUT- OFF POINTS HAVE BEEN ESTABLISHED BASED ON THE FOURTH UNIVERSAL DEFINITIONS OF MYOCARDIAL INFARCTION. THE UPPER REFERENCE LIMIT (URL) OF TROPONIN, DEFINED THE 99TH PERCENTILE OF cTnI DISTRIBUTION IN A REFERENCE POPULATION, HAS BEEN CONFIRMED THE DECISION THRESHOLD FOR [place] DIAGNOSIS. Performed By: #### B CONTINUOUS PROCESS [employer] DRUM, ABHI, BMP ####[facility] [address] [address]Dr. Helio Cee XR CHEST 1 Von 11-18-2021 [...] by: EHSAN MILLER Date: 2021-11-18 10:38 Normal [facility] BNPon 10-25-2021 Natriuretic peptide B (Bld) [Mass/Vol] 396.0 pg/mL Normal <=900.0 [facility] Comment on above: Performed By: #### V [id number] #### [facility] [address] [place] [address] Dr. Helio Cee CBC AUTO DIFFon 10-25-2021 BASO # 0.1 103/ul Normal 0.0-0.1 [facility] Comment on above: Performed By: #### E RUR #### [facility] [address] [address] [address] Helio Cee Basophils/100 WBC (Bld) 1.0 % Normal 0.2-2.0 [facility] Comment on above: Performed By: #### E RUR #### [facility] [address] [address] [address] Helio Cee EO # 0.2 103/ul Normal 0.0-0.7 [facility] Comment on above: Performed By: #### E RUR #### [facility] [address] [address] [address] Helio Cee Eosinophils/100 WBC (Bld) 2.7 % Normal 0.9-7.0 [facility] Comment on above: Performed By: #### E RUR #### [facility] [address] [place] [address] Dr. Helio Cee Erythrocyte distribution width (RBC) [Ratio] 14.6 % Normal 11.0-15.0 [facility] Comment on above: Performed By: #### E RUR #### [facility] [address] [place] [address] Dr. Helio Cee Hematocrit (Bld) [Volume fraction] 44.8 % Normal 36.0-48.0 [facility] Comment on above: Performed By: #### E RUR #### [facility] [address] [place] [address] Dr. Helio Cee Hemoglobin (Bld) [Mass/Vol] 13.8 g/dL Normal 12.0-16.0 [facility] Comment on above: Performed By: #### E RUR #### [facility] [address] [place] [address] Dr. Helio Cee IG # 0.03 10e3/ul Normal 0.00-0.03 [facility] Comment on above: Performed By: #### E RUR #### [facility] [address] [place] [address] Dr. Helio Cee IG % 0.3 % Normal 0.0-0.5 [facility] Comment on above: Performed By: #### E RUR #### [facility] [address] [place] [address] Dr. Helio Cee LYMPH # 1.6 103/ul Normal 1.2-3.8 [facility] Comment on above: Performed By: #### E RUR #### [facility] [address] [place] [address] Dr. Helio Cee Lymphocytes/100 WBC (Bld) 18.5 % Critically low 20.5-60.0 [facility] Comment on above: Performed By: #### E RUR #### [facility] [address] [place] [address] Dr. Helio Cee MANUAL DIFF REQ NO Normal [facility] Comment on above: Performed By: #### E RUR #### [facility] [address] [place] [address] Dr. Helio Cee MCH (RBC) [Entitic mass] 29.9 pg Normal 26.7-34.0 [facility] Comment on above: Performed By: #### E RUR #### [facility] [address] [place] [address] Dr. Helio Cee MCHC (RBC) [Mass/Vol] 30.8 g/dL Normal 29.9-35.2 [facility] Comment on above: Performed By: #### E RUR #### [facility] [address] [place] [address] Dr. Helio Cee MCV (RBC) [Entitic vol] 97.2 fL Normal 81.0-99.0 [facility] Comment on above: Performed By: #### E RUR #### [facility] [address] [place] [address] Dr. Helio Cee MONO # 0.6 103/ul Normal 0.3-0.8 [facility] Comment on above: Performed By: #### E RUR #### [facility] [address] [place] [address] Dr. Heilo Cee Monocytes/100 WBC (Bld) 7.0 % Normal 1.7-12.0 [facility] Comment on above: Performed By: #### E RUR #### [facility] [address] [place] [address] Dr. Helio Cee NEUT # 6.1 103/ul Normal 1.4-6.5 [facility] Comment on above: Performed By: #### E RUR #### [facility] [address] [place] [address] Dr. Helio Cee Neutrophils/100 WBC (Bld) 70.5 % Normal 43.0-75.0 [facility] Comment on above: Performed By: #### E RUR #### [facility] [address] [address] [address] Helio Cee Platelet mean volume (Bld) [Entitic vol] 11.0 fL Normal 9.5-13.5 [facility] Comment on above: Performed By: #### E RUR #### [facility] [address] [address] [address] Helio Cee PLT 292 103/ul Normal 150-450 [facility] Comment on above: Performed By: #### E RUR #### [facility] [address] [address] [address] Helio Cee RBC 4.61 106/ul Normal 4.20-5.40 [facility] Comment on above: Performed By: #### E RUR #### [facility] [address] [address] [address] Helio Cee WBC 8.6 103/ul Normal 4.0-11.0 [facility] Comment on above: Performed By: #### E RUR #### [facility] [address] [address] [address] Helio Cee ECHOCARDIO M/2D COMPLETEon 0 10-25-2021 ECHOCARDIO M/2D COMPLETE Patient: AARON LEWIS Exam Date: 10/25/2021 : 1945 Gender:F Ordering : DR JEREMIAH REED M.D. Admission #: [id number] Family : Order #: [id number] CLICK HERE TO VIEW EXAM ECHOCARDIOGRAM REPORT [...] Area(A4C): 20.40 cm2 Left Atrium Systolic Volume(A2C): 98593 mm3 Left Atrium Systolic Volume(A4C): 89903 mm3 Mitral Valve MV E to A Ratio: 0.80 Deceleration [place]: 4670 mm/s2 Mitral Valve A-Wave Peak Velocity: [...] Cheema M.D. on 10/25/2021 at 19:31 Normal [facility] MAMM SCREEN 3D EBONI CADon 10-25-2021 MG MAMM SCREEN 3D EBOIN CAD Patient: AARON LEWIS Exam Date: 10/25/2021 : 1945 Gender:F Ordering : DR JEREMIAH REED M.D. Admission #: [id number] Family : Order #: [id number] CLICK HERE TO VIEW EXAM RADIOLOGY REPORT [...] breast cancer at age 72. LOCATION: [facility] BREAST COMPOSITION: Heterogeneously dense,which may obscure small [...] Miller M.D. on 10/25/2021 at 15:33 Normal [facility] PROF 14(COMP METB)on 022 Albumin [Mass/Vol] 3.8 g/dL Normal 3.4-5.0 [facility] Comment on above: Performed By: #### V [id number] #### [facility] [address] [place] [address] Dr. Helio Cee Albumin/Globulin [Mass ratio] 1.1 {ratio} Normal [facility] Comment on above: Performed By: #### V [id number] #### [facility] [address] [address] [address] Helio Cee ALP [Catalytic activity/Vol] 97 U/L Normal 46-116 [facility] Comment on above: Performed By: #### V [id number] #### [facility] [address] [address] [address] Helio Cee ALT [Catalytic activity/Vol] 31 U/L Normal 14-59 [facility] Comment on above: Performed By: #### V [id number] #### [facility] [address] [address] [address] Helio Cee Anion gap [Moles/Vol] 11.0 mmol/L Normal [facility] Comment on above: Performed By: #### V [id number] #### [facility] [address] [address] [address] Helio Cee AST [Catalytic activity/Vol] 13 U/L Critically low 15-37 [facility] Comment on above: Performed By: #### V [id number] #### [facility] [address] [address] [address] Helio Cee Bilirubin [Mass/Vol] 0.4 mg/dL Normal 0.2-1.0 [facility] Comment on above: Performed By: #### V [id number] #### [facility] [address] [address] [address] Helio Cee Calcium [Mass/Vol] 9.3 mg/dL Normal 8.5-10.1 [facility] Comment on above: Performed By: #### V [id number] #### [facility] [address] [address] [address] Helio Cee Chloride [Moles/Vol] 108 mmol/L Critically high 98-107 [facility] Comment on above: Performed By: #### V [id number] #### [facility] [address] [address] [address] Helio Cee CO2 [Moles/Vol] 28.4 mmol/L Normal 21.0-32.0 [facility] Comment on above: Performed By: #### V [id number] #### [facility] [address] [address] [address] Helio Cee Creatinine [Mass/Vol] 1.09 mg/dL Critically high 0.55-1.02 [facility] Comment on above: Performed By: #### V [id number] #### [facility] [address] [address] [address] Helio Cee EGFR-AF MALTESE 59 mL/min/1.73m2 Critically low >=60 [facility] Comment on above: Performed By: #### V [id number] #### [facility] [address] [address] [address] Helio Cee EGFR-NON AF MALTESE 49 mL/min/1.73m2 Critically low >=60 [facility] Comment on above: Performed By: #### V [id number] #### [facility] [address] [address] [address] Helio Cee Globulin (S) [Mass/Vol] 3.4 g/dL Normal [facility] Comment on above: Performed By: #### V [id number] #### [facility] [address] [address] [address] Helio Cee Glucose [Mass/Vol] 100 mg/dL Normal 74-106 [facility] Comment on above: Performed By: #### V [id number] #### [facility] [address] [address] [address] Helio Cee Potassium [Moles/Vol] 4.4 mmol/L Normal 3.5-5.1 [facility] Comment on above: Performed By: #### V [id number] #### [facility] [address] [address] [address] Helio Cee Protein [Mass/Vol] 7.2 g/dL Normal 6.4-8.2 [facility] Comment on above: Performed By: #### V [id number] #### [facility] [address] [address] [address] Helio Cee Sodium [Moles/Vol] 143 mmol/L Normal 136-145 [facility] Comment on above: Performed By: #### V [id number] #### [facility] [address] [address] [address] Helio Cee Urea nitrogen [Mass/Vol] 24.0 mg/dL Critically high 7.0-18.0 [facility] Comment on above: Performed By: #### V [id number] #### [facility] [address] [address] [address] Helio Cee Urea nitrogen/Creatinine [Mass ratio] 22.0 mg/mg Normal [facility] Comment on above: Performed By: #### V [id number] #### [facility] [address] [address] [address] Helio Cee TSHon 10-25-2021 TSH 0.635 uIU/mL Normal 0.358-3.740 [facility] Comment on above: Performed By: #### V [id number] #### [facility] [address] [address] [address] Helio Cee Vital Signs Date Time Vital Sign Value Performing Clinician Facility 09-26-2023 15:39-0400 Blood Pressure Location BRENDA MARIN [facility] 09-26-2023 15:39-0400 Diastolic blood pressure 84 mm[Hg] BRENDA MARIN [facility] 09-26-2023 15:39-0400 Heart rate 68 /min BRENDA MARIN [facility] 09-26-2023 15:39-0400 Respiratory rate 16 /min BRENDA MARIN [facility] 09-26-2023 15:39-0400 Systolic blood pressure 132 mm[Hg] BRENDA MARIN [facility] 08-28-2023 14:59-0400 Blood Pressure Location BRENDA MIAH [facility] 08-28-2023 14:59-0400 Body temperature 98.24 [degF] BRENDA MIAH [facility] 08-28-2023 14:59-0400 Diastolic blood pressure 80 mm[Hg] BRENDA MIAH [facility] 08-28-2023 14:59-0400 Heart rate 92 /min BRENDA MIAH [facility] 08-28-2023 14:59-0400 Respiratory rate 16 /min BRENDA MIAH [facility] 08-28-2023 14:59-0400 Systolic blood pressure 132 mm[Hg] BRENDA MIAH [facility] 06-05-2023 12:55-0500 Blood Pressure Location BRENDA MIAH [facility] 06-05-2023 12:55-0500 Diastolic blood pressure 88 mm[Hg] BRENDA MIAH [facility] 06-05-2023 12:55-0500 Heart rate 74 /min BRENDA MIAH [facility] 06-05-2023 12:55-0500 Respiratory rate 16 /min BRENDA MIAH [facility] 06-05-2023 12:55-0500 Systolic blood pressure 134 mm[Hg] BRENDA MIAH [facility] 04-30-2023 15:30-0500 Body height 161.29 cm Jeremiah Reed Other [employer] Other 04-30-2023 15:30-0500 Body mass index (BMI) [Ratio] 35.29 kg/m2 Jeremiah Reed Other [employer] Other 04-30-2023 15:30-0500 Body weight 91.81 kg Jeremiah Reed Other [employer] Other 04-30-2023 15:30-0500 Diastolic blood pressure 74 mm[Hg] Jeremiah Reed Other [employer] Other 04-30-2023 15:30-0500 Systolic blood pressure 109 mm[Hg] Jeremiah Reed Other [employer] Other 04-13-2023 14:40-0500 Hourly Rounding [facility] 04-13-2023 14:40-0500 Promise to Return [facility] 04-13-2023 13:00-0500 Diastolic blood pressure 77 mm[Hg] [facility] 04-13-2023 13:00-0500 [facility] 78 [facility] 04-13-2023 13:00-0500 Hourly Rounding mad [facility] 04-13-2023 13:00-0500 Promise to Return [facility] 04-13-2023 13:00-0500 Respiratory rate 16 /min [facility] 04-13-2023 13:00-0500 Systolic blood pressure 127 mm[Hg] [facility] 04-13-2023 12:13-0500 Heart rate 80 /min [facility] 04-13-2023 12:13-0500 SaO2% (BldA) [Mass fraction] 95 % [facility] 04-13-2023 12:12-0500 Body temperature 97.16 [degF] [facility] 04-13-2023 12:11-0500 Diastolic blood pressure 78 mm[Hg] [facility] 04-13-2023 12:11-0500 Mean blood pressure 94 mm[Hg] [facility] 04-13-2023 12:11-0500 Systolic blood pressure 125 mm[Hg] [facility] 04-13-2023 12:00-0500 Hourly Rounding [facility] 04-13-2023 12:00-0500 Promise to Return [facility] 04-13-2023 09:10-0500 Diastolic blood pressure 70 mm[Hg] [facility] 04-13-2023 09:10-0500 Heart rate 87 /min [facility] 04-13-2023 09:10-0500 Mean blood pressure 90 mm[Hg] [facility] 04-13-2023 09:10-0500 Respiratory rate 17 /min [facility] 04-13-2023 09:10-0500 Systolic blood pressure 130 mm[Hg] [facility] 04-13-2023 08:00-0500 SaO2% (BldA) [Mass fraction] 93 % [facility] 04-13-2023 07:29-0500 Heart rate 89 /min [facility] 04-13-2023 07:29-0500 SaO2% (BldA) [Mass fraction] 94 % [facility] 04-13-2023 07:29-0500 Mean blood pressure 88 mm[Hg] [facility] 04-13-2023 07:29-0500 Body temperature 97.88 [degF] [facility] 04-13-2023 05:00-0500 Blood Pressure Location [facility] 04-13-2023 05:00-0500 Heart rate 95 /min [facility] 04-13-2023 05:00-0500 Mean blood pressure 100 mm[Hg] [facility] 04-13-2023 00:18-0500 Blood Pressure Location [facility] 04-13-2023 00:18-0500 Body temperature 97.52 [degF] [facility] 04-12-2023 20:33-0500 Body temperature 97.34 [degF] [facility] 04-12-2023 20:33-0500 Mean blood pressure 88 mm[Hg] [facility] 04-12-2023 18:03-0500 Blood Pressure Location [facility] 04-12-2023 16:49-0500 Respiratory rate 22 /min [facility] 04-12-2023 15:00-0500 Respiratory rate 20 /min [facility] 04-12-2023 12:24-0500 gluc 88 mg/dL [facility] 04-12-2023 12:24-0500 gluc [facility] 04-12-2023 12:19-0500 Body temperature 97.7 [degF] [facility] 03-29-2023 15:30-0500 Body height 161.29 cm Jeremiah Reed Other [employer] Other 03-29-2023 15:30-0500 Body mass index (BMI) [Ratio] 37.14 kg/m2 Jeremiah Reed Other [employer] Other 03-29-2023 15:30-0500 Body weight 96.62 kg Jeremiah Derek Other [employer] Other 03-29-2023 15:30-0500 Diastolic blood pressure 85 mm[Hg] Jeremiah Derek Other [employer] Other 03-29-2023 15:30-0500 Systolic blood pressure 144 mm[Hg] Jeremiah Derek Other [employer] Other 06-21-2022 14:42-0500 Blood Pressure Location BRENDA MARIN [facility] Encounters Encounter Date Encounter Type Care Provider Facility Start: 10-15-2023 End: 10-15-2023 ambulatory Drake Delatorre MD Facility:[facility] Start: 09-26-2023 End: 09-27-2023 ambulatory BRENDA MARIN Facility:[facility] Start: 09-26-2023 End: 09-26-2023 Patient encounter procedure BRENDA MARIN [facility] Start: 09-17-2023 End: 09-17-2023 ambulatory Drake Delatorre MD Facility:[facility] Start: 08-30-2023 End: 08-30-2023 ambulatory DIDIER MALDONADO Not Available Start: 08-28-2023 End: 08-29-2023 ambulatory BRENDA MARIN Facility:[facility] Start: 08-28-2023 End: 08-28-2023 Patient encounter procedure BRENDA MARIN [facility] Start: 07-23-2023 End: 07-24-2023 ambulatory Cayden Gunjan ROBB [place] [place]: 07-23-2023 End: 07-23-2023 Patient encounter procedure Cayden Hollins CEZAR [facility] Start: 07-09-2023 End: 07-10-2023 ambulatory BRENDAROSA ELENA MARIN [place] Start: 06-20-2023 End: 06-20-2023 ambulatory Jeremiah Reed Other [employer] Other Start: 06-20-2023 Telephone encounter Jeremiah Reed [facility] Start: 06-05-2023 End: 06-06-2023 ambulatory BRENDA SOLIMANRY [place] Start: 06-05-2023 End: 06-06-2023 ambulatory BRENDA MARIN Facility:[facility] Start: 06-05-2023 End: 06-05-2023 Lab Drop off BRENDA Zulema SOLIMANRY [facility] Start: 06-05-2023 End: 06-05-2023 Patient encounter procedure BRENDA MARIN [facility] Start: 04-30-2023 End: 04-30-2023 ambulatory Jeremiah Reed Other [employer] Other Start: 04-30-2023 Office outpatient vi sit 25 minutes Jeremiah Reed [facility] Start: 04-30-2023 Telephone encounter Jeremiah Reed [facility] Start: 04-17-2023 End: 04-17-2023 ambulatory Jeremiah Reed Other [employer] Other Start: 04-17-2023 Telephone encounter Jeremiah Reed [facility] Start: 04-13-2023 End: 04-13-2023 ambulatory Ray Fofana Other [employer] [employer] Other Start: 04-13-2023 Telephone encounter Ray Fofana [facility] Start: 04-12-2023 End: 04-13-2023 ambulatory Efrain Kurtz [place] Start: 04-12-2023 End: 04-13-2023 Observation Efrain Kurtz [facility] Start: 04-09-2023 End: 04-09-2023 ambulatory Drake Delatorre MD Facility: [facility] Start: 03-30-2023 End: 03-30-2023 ambulatory Jeremiah Reed Other [employer] Other Start: 03-30-2023 Telephone encounter Jeremiah Reed [facility] Start: 03-29-2023 End: 03-29-2023 ambulatory Jeremiah Reed Other [employer] [employer] Other Start: 03-29-2023 Transitional care manage srvc 14 day discharge Jeremiah Reed [facility] Start: 03-05-2023 End: 03-05-2023 ambulatory Drake Delatorre MD Facility: [facility] Start: 02-05-2023 End: 02-05-2023 ambulatory Drake Delatorre MD Facility: [facility] Start: 01-08-2023 End: 01-08-2023 ambulatory Drake Delatorre MD Facility: [facility] Start: 12-25-2022 End: 12-25-2022 ambulatory Drake Delatorre MD Facility:[facility] Start: 09-01-2022 End: 09-02-[address] JEREMIAH REED Facility:[facility] Start: 08-29-2022 End: 08-30-2022 ambulatory BARBARA Gonzalez Facility:[facility] Start: 08-21-2022 End: 08-22-[address] EHSAN MILLER Facility:[facility] Start: 08-10-2022 End: 08-11-2022 ambulatory BRENT MALDONADO Facility:[facility] Start: 06-21-2022 End: 06-21-2022 Patient encounter procedure BRENDA MARIN [facility] Start: 06-12-2022 End: 06-13-[address] EHSAN [...] Facility:[facility] Start: 11-24-[address] JEREMIAH REED [facility] ity:[facility] Start: 11-22-2021 End: 11-22-[address] SHIREEN ORTEGA Facility:[facility] Start: 11-18-2021 End: 11-21-2021 Evaluation and management of inpatient DR HARSHAL MENDIETA Facility:[facility] Start: 10-25-2021 End: 10-26-[address] EHSAN MILLER Facility:[facility] Start: 10-24-2018 End: 10-24-2018 Patient encounter procedure Radha Dong Work Phone: [facility] Start: 08-21-2018 End: 08-21-2018 Patient encounter procedure Radha Kosta Dong Work Phone: [facility] Start: 06-28-2018 End: 06-28-2018 Patient encounter procedure Radha Dong Work Phone: [facility] Procedures Date Procedure Procedure Detail [...] Influenza vaccination INFLUENZ A VACCINE (Season Ended) [facility] Start: 01-12-2018 Influenza vaccination INFLUENZA VACC INE (#1) [facility] Start: 02-10-2012 Pneumococcal vaccination PNEUM OCOCCAL VACCINE SERIES (1 of 2 - PCV13) [facility] Start: 1997 Protein mass conc COLON CANCER SCREENING DISCUSSION [facility] Start: 1997 Zoster vaccine hzv l derrell for subcutaneous use ZOSTER (SHINGLES) VACCINE (1 of 2) [facility] Start: 1987 Fasting lipid profile LIPID SCREENIN G [facility] Start: 1987 Protein mass conc MAMMOGRAM SC REENING DISCUSSION [facility] Start: 02-10-1968 Screening for malign ant neoplasm of cervix PAP SMEAR DISCUSSION [facility] Start: 1966 Third diphtheria, te tanus and acellular pertussis (DTaP) vaccination TDAP (ADULT) [facility] Start: 1965 Tetanus vaccination TETANUS [facility] Start: 1947 Hepatitis C antibody , confirmatory test HEPATITIS C VIRUS SCREENING [facility] Start: 1947 Screening for osteoporosis DEXA SCAN DISCUSSION [facility] Immunizations Immunization Date Immunization Notes Care Provider Keiko koenig 03-31-2021 SARS-CoV-2 (COVID-19 ) mRNA BNT-162b2 vax BRENDA MARIN [facility] 07-21-2020 SARS-CoV-2 (COVID-19 ) Ad26 vaccine, recombinant BRENDA MARIN [facility] 04-11-2020 influenza virus vaccine, unspecified formulation BRENDA MIAH [facility] 02-02-2011 influenza virus vaccine, unspecified formulation BRENDA MARIN [facility] Payers Date Payer Category Payer Medicare 2022 Unknown 1959 Medicare [id number] 1959 Unknown [id number] 1947 Unknown [id number] 2.16.84 0.1.529697.3.579.2.593 1947 Unknown [id number] 2.16.84 0.1.316740.3.579.2.593 1947 Unknown [id number] 2.16.84 0.1.525506.3.579.2.593 1947 Unknown [id number] 2.16.84 0.1.439024.3.579.2.593 1947 Unknown [id number] 2.16.84 0.1.704307.3.579.2.593 1947 Unknown [id number] 2.16.84 0.1.309277.3.579.2.593 1947 Unknown [id number] 2.16.84 0.1.974320.3.579.2.593 1947 Unknown [id number] 2.16.84 0.1.878031.3.579.2.593 1947 Unknown [id number] 2.16.84 0.1.732327.3.579.2.593 1947 Unknown [id number] 2.16.84 0.1.648165.3.579.2.593 1947 Unknown [id number] 2.16.84 0.1.329277.3.579.2.593 1947 Unknown [id number] 2.16.84 0.1.146095.3.579.2.593 1947 Unknown [id number] 2.16.84 0.1.306045.3.579.2.593 1947 Unknown [id number] 2.16.84 0.1.913213.3.579.2.593 1947 Unknown [id number] 2.16.84 0.1.976944.3.579.2.593 1947 Unknown [id number] 2.16.84 0.1.595581.3.579.2.593 1947 Unknown [id number] 2.16.84 0.1.656814.3.579.2.593 1947 Unknown [id number] 2.16.84 0.1.861904.3.579.2.593 1947 Unknown [id number] 2.16.84 0.1.173693.3.579.2.593 1947 Unknown [id number] 2.16.84 0.1.134571.3.579.2.593 1947 Unknown [id number] 2.16.84 0.1.303622.3.579.2.593 1947 Unknown [id number] 2.16.84 0.1.029196.3.579.2.1259 1947 Unknown [id number] 2.16.8 40.1.850986.3.579.2.727 1947 Unknown [id number] 2.16.8 40.1.209517.3.579.2.727 1947 Unknown [id number] 2.16.8 40.1.725808.3.579.2.727 1947 Unknown [id number] 2.16.8 40.1.884231.3.579.2.727 1947 Unknown [id number] 2.16.8 40.1.333002.3.579.2.727 1947 Unknown [id number] 2.16.8 40.1.787510.3.579.2.727 1947 Unknown [id number] 2.16.8 40.1.944132.3.579.2.727 1947 Unknown [id number] 2.16.8 40.1.370360.3.579.2.727 1947 Unknown [id number] 2.16. 840.1.493241.3.579.2.196 1947 Unknown [id number] 2.16. 840.1.488681.3.579.2.196 1947 Unknown [id number] 2.16. 840.1.785075.3.579.2.196 1947 Unknown [id number] 2.16. 840.1.446238.3.579.2.196 1947 Unknown [id number] 2.16. 840.1.908548.3.579.2.196 1947 Unknown [id number] 2.16. 840.1.822493.3.579.2.196 1947 Unknown [id number] 2.16. 840.1.761112.3.579.2.196 Social History Date Type Detail [facility] [employer] Sex Assigned At Not on file [facility] Start: 02-03-2021 End: 09-26-2023 Tobacco smoking status Ex-smoker (finding) [facility] Sex Assigned At Female [facility] Tobacco smoking status Never [facility] Functional Status Date Assessment Result Facility 09-26-2023 Functional Status N/A [facility] 08-28-2023 Functional Status N/A [facility] 06-05-2023 Functional Status N/A [facility] 04-12-2023 Functional Status N/A [facility] 04-12-2023 Functional Status [facility] 06-21-2022 Functional Status N/A [facility] Clinical Notes 01-12-2013 to 09-26-2023 [...] including vitamins, herbs, eye drops, creams, and kzjm-elm-rmvbfvm medicines. Any problems you or family members [...] provider tells you to take them. Taking duco-wsy-mfjnmel medicines, vitamins, herbs, and supplements. General instructions [...] Follow these instructions at home: Medicines Take rgen-plm-myyrcbp and prescription medicines only as told by [...] provider. Document Revised: 11/04/2021 Document Reviewed: 11/04/2021 [employer] Patient Education 2022 [employer]. Follow Up Care 08/30/2023 10:04:37 With:BRENDA MARIN PA-C, URL Address: [address] [place] [address] [phone] When: Unknown Comments:flaquita ditez MD [facility] 08-28-2023 Hospital Discharg e instructions Patient [...] your health care provider. General instructions Take leoq-hwf-yowfkuj and prescription medicines only as told by [...] provider. Document Revised: 01/17/2021 Document Reviewed: 01/17/2021 [employer] Patient Education 2022 [employer]. Follow Up Care 07/23/2023 14:35:57 With:MIAH ROE, BRENDA Poole, URL Address: [address] [place], [place] [address] [address] Business (1) When:6 weeks [facility] [employer] 07-23-2023 Note [id number] [facility] 07-23-2023 Note Cystoscopy with Uret hral [...] you have a fever over 100 degrees [facility] 07-23-2023 Hospital Discharg e instructions Patient [...] Up Care 06/11/2023 13:39:28 With:BRENDA MARIN Address: [address] [place] [address] Business (1) When: Unknown Comments:Call for followup appointment with Georgette Marin PA-c within the next 2 months or so to monitor you. Please finish your antibiotics and have a great day. [facility] 06-20-2023 Evaluation note Encounter Date Diagnosis Assessment Notes Jun, Essential (primary) hypertension (ICD-10 - I10) [employer] Other 01-23-2024 Hospital Discharge instructions Patient Education [...] reconstructed. Follow these instructions at home: Take ayjf-egf-wkpxgnp and prescription medicines only as told by [...] provider. Document Revised: 03/07/2022 Document Reviewed: 03/07/2022 [employer] Patient Education 2022 [employer]. Follow Up Care 06/21/2022 15:14:52 With:CEZAR BERNAL, Cayden Hollins, URL Address: [address] [place] [address] When: Unknown [facility] 01-23-2024 Evaluation + Plan note Diagnostic Tests Pending * Urine Culture 06/05/23 [facility]12-18-2023 Evaluation note* Encounter Date Diagnosis Assessment [...] symptoms. Any developing patterns. Stay well hydrated. [employer] Other 12-01-2023 NoteChief Complaint pt arrives via [facility] after being found outside by a neighbor without a shirt on. pt is a/o to self and place, not time. FSBS upon arrival 88. Pt was recently [facility]. pt. denies fall, was found sitting down. History of Present Illness 78-year-old female with PMH reformed smoker, HTN, anxiety, depression, peripheral neuropathy, GERD, OAB, obesity. -Patient presented to the ED secondary to confusion. -Per ED physician patient was recently in [facility] and treated for a UTI on antibiotic, [...] Lymph Auto: 9.7 % Low (04/12/23 12:53:00) Pender Auto: 7.8 % (04/12/23 12:53:00) Eos Auto: 0.1 % (04/12/23 12:53:00) Basophil Auto: 0.4 % (04/12/23 12:53:00) Neutro Absolute: 12.4 E9/L High (04/12/23 12:53:00) Lymph Absolute: 1.5 E9/L (04/12/23 12:53:00) Pender Absolute: 1.2 E9/L High (04/12/23 12:53:00) Eos [...] 88 mg/dL (04/12/23 12:23:00) POC Device SN: [id number] (04/12/23 12:23:00) POC User ID: (more content not included)...[facility]Result Comment: Electronically Signed By: Radha TAYLOR\.br\Date and Time Signed: 04/12/23 16:29 EST\.br\Electronically Co-Signed By: Radha TAYLOR\.br\Date and Time Co-Signed: 04/12/23 16:37 EST\.br\Electronically Co-Signed By: Radha TAYLOR\.br\Date and Time Co-Signed: 04/12/23 16:58 EST\.br\Electronically Co-Signed By: Tessie BERNAL, Efrain\.br\Date and Time Co-Signed: 04/13/23 16:43 [id number] NoteAdmission and Discharge Information Admitting Physician - [...] willbe reviewed and discussed with PCP or amortization clerk MD once the hospital dipper operator is able to reach him/her. I [...] made to ensure accuracy, however, inadvertently computerized predator control trapper mistakes may be present. Significant Findings CT [...] spine, with routine reconst (more content not included)...[facility] above:Result Comment: Electronically Signed By: TITI MITCHELL Radha\.br\Date and Time Signed: 04/13/23 10:54 EST\.br\Electronically Co-Signed By: TITI MITCHELL Radha\.br\Date and Time Co-Signed: 04/13/23 10:57 EST\.br\Electronically Co-Signed By: TITI MITCHELL Radha\.br\Date and Time Co-Signed: 04/13/23 10:58 EST\.br\Electronically Co-Signed By: TITI MITCHELL Radha\.br\Date and Time Co-Signed: 04/13/23 10:59 EST\.br\Electronically Co- Signed By: TITI MITCHELL Radha\.br\Date and Time Co-Signed: 04/13/23 13:55 EST\.br\Electronically Co-Signed By: Tessie BERNAL, [facility]\.br\Date and Time Co- Signed: 04/13/23 16:37 [id number] Evaluation + Plan noteExtracted from: Title:Discharge Note [...] cap(s), Oral, Daily With When Contact Information [facility] Additional Instructions: Call for followup appointment for anxiety/depression care. Gerald Nolasco Within 1 to 2 weeks [address] [place] [address]- Business (1) Additional Instructions: JEREMIAH REED Within 2 to [address] [place] [address]- Business (1) Additional Instructions: Confusion Extracted from: [...] vein thrombosis (DVT) prophylaxis (Z79.899: Other terminal gauger (current) drug therapy) Depression, unspecified (F32.A: Depression, [...] vein thrombosis (DVT) prophylaxis (Z79.899: Other terminal gauger (current) drug therapy) Depression, unspecified (F32.A: Depression, [...] from: Title:Admission H & P Author:Divine TAYLOR Date:04/12/23 1. AMS (altered mental statu s) [...] Cr - unknown - awaiting records from [facility] -Renal US & PVR - if Cr [...] vein thrombosis (DVT) prophylaxis (Z79.899: Other terminal gauger (current) drug therapy) -Heparin sq with early [...] made to ensure accuracy, however, inadvertently computerized predator control trapper mistakes may be present. Future Appointments Appointment Date:06/05/2023 01:00:00 PM Scheduled Provider:BRENDA MARIN PA-C Location:[facility] Appointment Type:URO Office Visit [facility]12-01-2023 NoteChief Complaint AMS Reason for Consultation [...] 2 tab(s), Oral, q6hr, PRN Afrin 0.05% [place], 2 s (more content not included)...[facility] Comment on above:Result Comment: Electronically Signed By: Rik ALVARES, Kamala\.br\Date and Time Signed: 04/13/23 09:19 EST\.br\Electronically Co- Signed By: Gerald Nolasco DO\.mario\Date and Time Co-Signed: 04/13/23 11:28 EST 04-13-2023 [...] friend for help if needed. Medicines Take ytaa-kpw-rmnkagd and prescription medicines only as told by [...] consider day care, extended-care programs, or a snf facility. The person's health care provider may [...] provider. Document Revised: 08/24/2020 Document Reviewed: 08/24/2020 [employer] Patient Education 2022 [employer]. Follow Up Care 04/12/2023 12:15:50 With:Johnnie BERNAL, ALPHONSE Choi Address: [address] [address]- When:1 to 2 weeks Comments:This office is closed on Fridays. Please call the office on Sunday April 16, 2023 for a follow upappiontment. Thank you. With:JEREMIAH REED Address: [address] [place] [id number] [facility] (1) When:2 to 4 days Comments:Call for followup appointment With:[facility] Address:Unknown When: Unknown Comments:Call for followup appointment for anxiety/depression care. [facility]12-01-2023 NotePT Evaluation done this date. Pt. with 18 on AM-PAC this date. Recommend she use FWW for gait aswith cane she reaches for objects to hang onto with other hand. Will likely benefit from home health PT.[facility]11-17-2023 Evaluation note* Encounter Date Diagnosis Assessment Notes Treatment Notes Treatment Clinical Notes Mar, Colon cancer screening (ICD-10 - Z12.11) Shahab P. Tabatabai, Broker Other 11-16-2023 Evaluation note* Encounter Date Diagnosis Assessment Notes Treatment Notes Treatment Clinical Notes Mar, Generalized weakness (ICD-10 - R53.1) Followup as scheduled w ortho and PT Mar, COPD, moderate (ICD-10 - J44.9) continue present medication reviewed ER report from observation status Shahab P. Tabatabai, Broker Other 03-30-2023 NoteCONSULTATION CONSULTATION DATE: 08/10/2022 TO: [...] weeks' time or sooner if needed. [id number] NoteCONSULTATION PROCEDURE DATE: 08/10/2022 PROCEDURE: Right suprascapular [...] reduction in her pain symptoms post procedurally.[id number] Hospital Discharge instructions Patient Education 06/21/2022 14:35:24 [...] fried and sweet foods. General instructions Take gcqv-wed-olfjdty and prescription medicines only as told by [...] 02/24/2010 Document Revised: 08/21/2019 Document Reviewed: 05/16/2018 [employer] Patient Education 2020 [employer]. Follow Up Care 05/19/2021 14:10:29 With:MIAH ROE, BRENDA Poole, URL Address: [address] [place] [address] When: Unknown [facility] You 12-29-2022 NoteCONSULTATION CONSULTATION DATE: 05/11/2022 HISTORY OF [...] the diclofenac. 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 [...] in three months' time unless otherwise indicated.The [facility] [id number] NoteCONSULTATION CONSULTATION DATE: 02/23/2022 This is a [...] in three months' time unless otherwise indicated.The [facility] [id number] NoteCONSULTATION CONSULTATION DATE: 01/08/2022 HISTORY OF PRESENT [...] followed up in the office post procedure.The [facility] [id number] Note CONSULTATION CONSULTATION DATE: 12/07/2021 HISTORY OF [...] and patient would like to proceed. The [facility] [id number] History general Narrative - Reported* Type Description Date Medical History Chronic back pain Medical History HTN Medical History anxiety Medical History DJD Medical History osteoporosis Surgical History Lumbar laminectomy and fusion Surgical History Hysterectomy (spared L ovary) Surgical History Landaverde's neuroma Hospitalization History For surgery as above Hospitalization History [facility] 03/2023 [facility] Other Evaluation + Plan note Future Appointments Appointment Date:06/26/2023 02:30:00 PM Scheduled Provider:BRENDA MARIN PA-C Location:[facility] Appointment Type:URO Office Visit [facility] evaluation + Plan note Future Appointments Appointment Date:08/28/2023 03:00:00 PM Scheduled Provider:BRENDA MARIN PA-C Location:[facility] Appointment Type:URO [facility] Other Hospital course Narrative No data available for this section [facility] Hospital Discharge instructions No data available for this section [facility] No data available for this section [facility] Summary Purpose Family History No Family History [...] Personnel Name: JEREMIAH REED MD Address: Address: [address] [place] [address] Personnel Name: JEREMIAH REED MD Address: Address: [address] [place] [address] Personnel Name: JEREMIAH REED MD Address: Address: [address] [place] [address] Personnel Name: JEREMIAH REED MD Address: Address: [address] [place] [address] Personnel Name: JEREMIAH REED MD Address: Address: [address] [place] [address] Personnel Name: JEREMIAH REED MD Address: Address: [address] [place] [address] Personnel Name: JEREMIAH REED MD Address: Address: [address] [place] [address] INFORMATION SOURCE (unrecogn ized section and content) DATE CREATED AUTHOR 09/08/2022 [facility] DATE CREATED AUTHOR AUTHOR'S ORGANIZ ATION 09/01/2023 [facility] EPIC DATE CREATED AUTHOR AUTHOR'S ORGANIZ ATION 09/28/2023 [facility] DATE CREATED AUTHOR AUTHOR'S ORGANIZ ATION 10/25/2023 [facility] FOR RECORDS PERTAINING TO PATIENTS WHO [...] BE BASED ON THE PRIMARY CLINICAL RECORDS. [employer] [facility]. provides no warranty or guarantee of the accuracy or completeness of information in this document.
[2023-10-29 09:19] VITALS: BP 143/81; PULSE 86; TEMP 36.9; O2SAT 96
[2023-10-29 09:49] VITALS: BP 185/90; PULSE 81; O2SAT 97
[2023-10-29 09:50] VITALS: BP 180/89; PULSE 83; O2SAT 94
[2023-10-29] MEDS: TRIAMCINOLONE ACETONIDE 40 MG/ML VIAL INJ (09:51)
[2023-10-29] MEDS: BUPIVACAINE HCL 0.25% PF 25 MG/10 ML VIAL INJ (09:51)
[2023-10-29] MEDS: LIDOCAINE HCL 2% 400 MG/20 ML MDV 15 ML INJ (09:58)
--- NOTE | 2023-10-29 10:04 | P.ON_ITS ---
Date of procedure: 10/29/23 Pre-op diagnosis: Pain due to lumbar spondylosis without myelopathy Post-op diagnosis: same as pre-op Procedure: Procedure: Bilateral L4-5, L5-S1 radiofrequency ablation Medications: Bupivacaine 0.25% 6cc, lidocaine 2% 5cc, kenalog 80mg The patient was seen and examined in the preoperative holding area.? The site was marked.? Written informed consent was obtained and placed on the chart.? The patient was brought to the medical procedure unit and placed in the prone position.? A timeout was completed verifying correct patient, procedure, positioning, and special requirements.? The skin overlying the target points, the designated medial branch, were prepped and draped in the usual sterile fashion.? The target point was achieved with a 20-gauge 15 cm with a 10 mm curved active tip radiofrequency cannula under direct fluoroscopic visualization.? The needle was inserted at level L4 on the right side. Needle tip position was confirmed with lateral fluoroscopic position.? Motor stimulation was carried out at 2 Hz up to 5 volts with the absence of extremity activity.? This was repeated at level L5, S1 on right side.?? Sensory stimulation was carried out.? Concordant pain was realized at the above- mentioned sites.? Then radiofrequency lesioning was carried out times 90 seconds at 80 degrees times 2 lesions at each level.? The radiofrequency probe was removed prior to cannula removal.? The above-mentioned injectate was placed in 1 mL increments.? The needle was removed. The same procedure, with the same steps, was then completed on the left side at the same levels. Insertion sites were covered.? The patient was taken to the postoperative recovery area and monitored for an appropriate length of time before being found suitable for discharge in the company of a responsible adult. Anesthesia: Local Surgeon: Drake Delatorre Pathology: none sent Condition: stable Disposition: no change
== END 2023-10-29 10:12 | disposition home or self-care (01) ==
LOC: SURGOUT 08:47
PROVIDERS: PCP Family Medicine; Visit Provider Anesthesiology
DX: M47.816 Spondylosis without myelopathy or radiculopathy, lumbar region (principal)
CPT/HCPCS: 64635; 64636; J0665; J3301

== ENCOUNTER 2023-11-28 13:07 | Outpatient (OUT) | payer MEDICARE, OTHER, SELFPAY ==
--- NOTE | 2023-11-28 13:15 | PM.CN ---
Consult Note: HPI Data of Consult Patient: known to practice within the last 3 years Requesting Physician: Sheri Lozano NP Primary Care Provider: Tierra Newell MD Consult Narrative Reason for consult: f/u Narrative: Jing Hoffmann a pleasant 78 year old female presents for evaluation and management of chronic neck and low back pain. Patient reporting moderate to severe low back pain without radiculopathy, greater than 3 months unresponsive to HEP and conservative medications. Patient has a hx of successful lumbar RFAs. Pain today 5-6/10 aching sharp increasing to 8/10 with activity, standing, walking, pushing, pulling, ADLS. Pain improved with heat, lying, and sitting. Patient recently underwent bilateral L4-5 L5-S1 RFA with no improvement. Continues to have moderate to severe low back pain. Continues to have moderate to severe neck pain and pain radiating into right arm. cc:: CC: Sheri Lozano NP Review of Systems ROS Status of ROS 10 or more systems reviewed and unremarkable except as noted in history and below Musculoskeletal Reports: back pain and neck pain PFSH PFSH Medical History COPD (chronic obstructive pulmonary disease) ?J44.9 - Chronic obstructive pulmonary disease, unspecified (ICD-10) GERD (gastroesophageal reflux disease) ?K21.9 - Gastro-esophageal reflux disease without esophagitis (ICD-10) Chronic pain ?G89.29 - Other chronic pain (ICD-10) Anxiety ?F41.9 - Anxiety disorder, unspecified (ICD-10) HTN (hypertension) ?I10 - Essential (primary) hypertension (ICD-10) Chronic prescription opiate use ?Z79.891 - nursing home (current) use of opiate analgesic (ICD-10) Shoulder arthritis ?M19.019 - Primary osteoarthritis, unspecified shoulder (ICD-10) Cervical spondylosis ?M47.812 - Spondylosis without myelopathy or radiculopathy, cervical region (ICD-10) Surgical History History of lumpectomy of left breast ?Z98.890 - Other specified postprocedural states (ICD-10) History of back surgery ?Z98.890 - Other specified postprocedural states (ICD-10) History of hysterectomy ?Z90.710 - Acquired absence of both cervix and uterus (ICD-10) Family History Mother Family history of cancer Father Family history of stroke Grandfather Family history of stroke Social History Within the past year, how often did you have a drink containing alcohol: never Score interpretation: A score less than 3 is consistent with normal alcohol consumption. Smoking status: Former smoker Non-prescribed substance use: denies use Previous occupational history: retired Highest level of school completed/degree received: high school graduate Are you now , , , , never or living with a partner: Little interest or pleasure in doing things: not at all Feeling down, depressed, or hopeless: not at all Feel stressed/tense/nervous/anxious/difficulty sleeping: not at all Do you think of yourself as: straight/heterosexual Gender Identity: female Meds Home Medications and Allergies Home Medications ?Medication ?Instructions ?Recorded ?Confirmed ?Type multivitamin 1 tab PO DAILY 10/26/22 10/29/23 History omeprazole 40 mg capsule,delayed 40 mg PO DAILY 10/26/22 10/29/23 History release calcium carbonate (Calcium 600) 600 mg PO DAILY 03/21/23 10/29/23 History meloxicam 15 mg tablet 15 mg PO DAILY 03/21/23 10/29/23 History gabapentin 300 mg capsule 300 mg PO TID #270 caps 06/07/23 10/29/23 Rx baclofen 10 mg tablet 5 mg PO TID PRN muscle spasm 07/19/23 10/29/23 History acetaminophen 325 mg tablet 650 mg PO Q6H PRN pain 08/30/23 10/29/23 History amlodipine 2.5 mg tablet 2.5 mg PO DAILY 08/30/23 10/29/23 History aspirin 81 mg tablet,delayed 81 mg PO DAILY 08/30/23 10/29/23 History release glucosamine sulfate 500 mg tablet 500 mg PO BID 08/30/23 10/29/23 History (Glucosamine) oxycodone-acetaminophen 5 mg-325 1 tab PO TID PRN pain 08/30/23 10/29/23 History mg tablet (Percocet) nortriptyline 25 mg capsule 25 mg PO DAILY #90 caps 10/17/23 10/29/23 Rx oxycodone-acetaminophen 5 mg-325 1 tab PO TID PRN pain #90 tabs 11/26/23 Rx mg tablet (Percocet) Allergies Allergy/AdvReac Type Severity Reaction Status Date / Time No Known Drug Allergies Allergy Verified 10/15/23 11:17 Exam Constitutional Documenting provider has reviewed patient's vital signs: yes Common normals: no apparent distress, oriented x3, healthy appearing, alert and well nourished General appearance: cooperative HENMT Common normals: normocephalic, hearing grossly normal bilaterally and moist oral mucous membranes Head and scalp: normocephalic Eye Common normals: PERRL Pupil: PERRL Neck & C-Spine Common normals: full ROM General: normal visual inspection Cervical spine: pain with cervical ROM and cervical spine tenderness Other: reports intermittent numbness tingling and weakness of RUE strength 5/5 on exam negative spurlings sensation intact and equal to BUE Chest Common normals: inspection of chest normal Respiratory Common normals: normal respiratory effort, no retractions and no use of accessory muscles Back & Pelvis Lumbar spine/lower back: ROM limited, pain with ROM and straight leg raise negative bilaterally Sacroiliac joints: SI joints normal Other: positive facet loading tenderness over bilateral L4-S1 facets negative radiculopathy strength 5/5 in BLE Extremity Common normals: normal to inspection Right upper extremity: shoulder joint (pain and limited ROM, tender to touch) Other: limited ROM with abduction and overhead extension, unable to perform scratch test due to pain pain and tenderness to below noted areas Neuro Common normals: oriented x3, CN's II-XII intact bilaterally, moves all extremities, no focal motor deficits, no sensory deficits noted and deep tendon reflexes 2+ bilaterally Sensorium/orientation: alert Motor exam: strength 5/5 throughout and no movement abnormalities noted Psych Common normals: mental status grossly normal, thought process normal, cooperative, affect normal, speech normal and activity/motor behavior normal Speech: normal speech Thought process: normal thought process Results Additional Findings Additional findings: If on a controlled substance or opioids, I have checked an [place]AR[place] report on this patient and there are no aberrancies noted in the prescribing history.??If on a controlled substance or opioid a drug screen was completed and reviewed within the last year, and if there has not been a drug screen completed we ordered one today to monitor higher risk, state monitored pain medication use. As part of providing excellent, safe, comprehensive care, the following was completed at our patient's visit: 1. A medication reconciliation and review to ensure accurate knowledge of current/active medications, including asking our patients to inform us about any izlp-hxz-nggprar medications or herbal remedies/nutritional supplements/alternative remedies. 2. A review to specifically ensure our patients have had annual screening for screening for depression, screening for tobacco use, and screening for unhealthy alcohol use. For concerning screenings had a discussion with the patient, provided patient education, and recommended follow-up with primary care provider when appropriate. If patient noted with a risk of falling, they received education on strength, gait, and balance training to prevent future risk of falling. Assessment and Plan Assessment and Plan (1) Lumbar spondylosis: (2) Cervical radiculopathy: (3) Primary osteoarthritis, right shoulder: (4) Tendinopathy of right shoulder: Plan right C5-6 C6-7 TFESI, declining NS evaluation. Prior cervical MRI showing moderate to severe degenerative changes and stenosis continue percocet 5-325mg TID PRN moderate to severe pain continue baclofen to 5mg TID PRN myofascial pain continue gabapentin 300mg AM and 600mg HS continue nortriptyline 35mg hs risks vs benefits of current medication regimen reviewed and discussed, patient continues to find functional improvement and pain relief with current regimen continue f/u with Dr Malhotra for right shoulder pain/injection therapy f/u after injection
== END 2023-11-28 13:08 | disposition home or self-care (01) ==
LOC: PM 13:07
PROVIDERS: PCP Family Medicine; Visit Provider Nurse Practitioner
DX: M47.816 Spondylosis without myelopathy or radiculopathy, lumbar region (principal); M54.12 Radiculopathy, cervical region; M19.011 Primary osteoarthritis, right shoulder
CPT/HCPCS: G0463

== ENCOUNTER 2023-12-17 10:11 | Day surgery (SDC) | payer MEDICARE, OTHER, SELFPAY ==
[2023-12-17 10:36] VITALS: BP 148/104; PULSE 98; TEMP 36.6; O2SAT 97
[2023-12-17] MEDS: BUPIVACAINE HCL 0.25% PF 25 MG/10 ML VIAL INJ (11:14)
[2023-12-17] MEDS: DEXAMETHASONE SOD PHOS 10 MG/ML VIAL INJ (11:14)
[2023-12-17] MEDS: IOHEXOL 240 MG/ML - 10 ML VIAL INJ (11:14)
[2023-12-17] MEDS: LIDOCAINE HCL 2% 400 MG/20 ML MDV 5 ML INJ (11:15)
[2023-12-17 11:17] VITALS: BP 166/85; BP 173/106; PULSE 88; PULSE 96; O2SAT 95; O2SAT 97
--- NOTE | 2023-12-17 11:18 | P.ON_ITS ---
Date of procedure: 12/17/23 Pre-op diagnosis: Pain due to cervical radiculopathy Post-op diagnosis: same as pre-op Procedure: Procedure: Right C5-6, 6-7 transforaminal epidural steroid injection Medication: Bupivacaine 0.25% 2cc, lidocaine 2% 1cc, dexamethasone 10mg The patient was seen and examined in the preoperative holding area.? Informed consent was obtained and placed on the chart.? Patient was brought to the medical procedure unit and placed in the prone position where a timeout was completed verifying the correct patient, procedure site, position, and planned special equipment using sterile aseptic technique.? Under direct fluoroscopic visualization a 25-gauge Quincke tipped spinal needle was advanced to the designated neural foramen where contrast dye was injected to show adequate spread.? The needle was inserted at level right C5-6. There was no evidence of vascular or adverse uptake.? Epidural spread was appreciated.? The above- mentioned injectate was then placed in a 1.5 mL aliquot preceded by negative aspiration.? The needle was removed. The needle was inserted and the procedure repeated at level right C6-7.? The surgery site was covered.? Patient was taken to the postprocedural recovery area and monitored for an appropriate length of time before found suitable for discharge in the accompaniment of a responsible adult. Anesthesia: Local Surgeon: Drake Delatorre Pathology: none sent Condition: stable Disposition: no change
== END 2023-12-17 11:22 | disposition home or self-care (01) ==
LOC: SURGOUT 10:12
PROVIDERS: PCP Family Medicine; Visit Provider Anesthesiology
DX: M54.12 Radiculopathy, cervical region (principal)
CPT/HCPCS: 64479; 64480; J0665; J1100; Q9966

== ENCOUNTER 2023-12-18 11:28 | Outpatient (OUT) | payer MEDICARE, OTHER, SELFPAY ==
--- NOTE | 2023-12-18 11:42 | MR_ITS ---
[address] [address] Patient Name: AARON JJ MRN: [facility]:[id number] date: 1945 Sex: F Assigned Patient Location: LAB Current Patient Location: [facility] Accession/Order Number: [id number] Exam Date: 12/18/2023 11:55 Report Date: 12/20/2023 07:29 At the request of: JUAN ANTONIO QUEVEDO Procedure: MR lumbar spine wo con EXAMINATION: MR lumbar spine wo con HISTORY: Post Laminectomy, Lumbar Spondylosis COMPARISON: No relevant comparison available. TECHNIQUE: A variety of imaging planes and parameters were utilized for visualization of suspected pathology. FINDINGS: For the purposes of numbering, sagittal T2 image # 8 extends from the T12 vertebral body superiorly to the L3 level inferiorly. PARASPINAL AREA: Normal with no visible mass. BONES: Rotatory levoscoliosis. Posterior decompression bilateral transpedicular fusion L3-L4 with resultant metallic susceptibility artifact. Multilevel spondylolisthesis. Moderate degenerative spondylosis and facet osteoarthropathy CORD/CAUDA EQUINA: Normal caliber, contour, and signal intensity. DISC LEVELS: 12-L1: Disc collapse with moderate diffuse disc/osteophyte complex. No definite central canal stenosis L1-L2: Asymmetric disc space narrowing with right-sided collapse. Endplate sclerosis. Moderate diffuse disc/osteophyte complex and facet osteoarthropathy. No central canal or left foraminal stenosis. Moderate to severe narrowing of the right neural foramen L2-L3: Asymmetric disc space narrowing with right-sided collapse. Endplate sclerosis. Bulky disc/osteophyte complex and ligamentum flavum hypertrophy and facet osteoarthropathy. Mild trefoil narrowing of the central canal. Moderate to severe right and moderate left foraminal stenosis L3-L4: Posterior decompression and transpedicular fusion. Interbody fusion. No disc bulge or herniation. No central or foraminal stenosis L4-L5: Disc space narrowing and disc desiccation. Mild diffuse disc bulge. Ligamentum flavum hypertrophy and facet osteoarthropathy. Moderate trefoil narrowing of the central canal. Moderate to severe bilateral foraminal stenosis L5-S1: Disc space narrowing and disc desiccation. Moderate diffuse disc/osteophyte complex. Ligamentum flavum hypertrophy and facet osteophyte arthropathy. No central canal or right foraminal stenosis. Moderate to severe narrowing of the left neural foramen MR/MR lumbar spine wo con IMPRESSION: Extensive degenerative changes with central and foraminal stenosis at multiple levels detailed above Electronically authenticated by: BRENT BEMRAN Date: 12/20/2023 07:29
[2023-12-18 11:46] LABS: Estimated GFR (African America >60 (>=60); Estimated GFR (Non-African Ame 50 (>=60)
== END 2023-12-18 11:29 | disposition home or self-care (01) ==
LOC: LAB 11:28
PROVIDERS: PCP Family Medicine; Visit Provider Nurse Practitioner
DX: M47.816 Spondylosis without myelopathy or radiculopathy, lumbar region (principal); M96.1 Postlaminectomy syndrome, not elsewhere classified; M48.061 Spinal stenosis, lumbar region without neurogenic claudication
CPT/HCPCS: 36415; 72148; 82565

== ENCOUNTER 2023-12-27 14:31 | Outpatient (OUT) | payer MEDICARE, OTHER, SELFPAY ==
--- NOTE | 2023-12-27 15:00 | P.CN_ITS ---
Consult Note: HPI Data of Consult Patient: known to practice within the last 3 years Requesting Physician: Sheri Lozano NP Primary Care Provider: Tierra Newell MD Consult Narrative Reason for consult: f/u Narrative: Jing Hoffmann a pleasant 78 year old female presents for evaluation and management of chronic neck and low back pain. Patient reporting moderate to severe low back pain without radiculopathy, greater than 3 months unresponsive to HEP and conservative medications. Patient has a hx of successful lumbar RFAs. Pain today 5-6/10 aching sharp increasing to 8/10 with activity, standing, walking, pushing, pulling, ADLS. Pain improved with heat, lying, and sitting. Patient recently underwent bilateral L4-5 L5-S1 RFA with no improvement. Continues to have moderate to severe low back pain. Recent lumbar MRI completed with results below. Continues to have moderate to severe neck pain and pain radiating into right arm, unfortunately no relief from right C5-6 C6-7 TFESI. Patient has not seen Dr Malhotra recently. cc:: CC: Sheri Lozano NP Review of Systems ROS Status of ROS 10 or more systems reviewed and unremark able except as noted in history and below Musculoskeletal Reports: back pain, neck pain, extremity pain and joint pain PFSH PFSH Medical History COPD (chronic obstructive pulmonary disease) ?J44.9 - Chronic obstructive pulmonary disease, unspecified (ICD-10) GERD (gastroesophageal reflux disease) ?K21.9 - Gastro-esophageal reflux disease without esophagitis (ICD-10) Chronic pain ?G89.29 - Other chronic pain (ICD-10) Anxiety ?F41.9 - Anxiety disorder, unspecified (ICD-10) HTN (hypertension) ?I10 - Essential (primary) hypertension (ICD-10) Chronic prescription opiate use ?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.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 analgesic (ICD-10) Shoulder arthritis ?M19.019 - Primary osteoarthritis, unspecified shoulder (ICD-10) Cervical spondylosis ?M47.812 - Spondylosis without myelopathy or radiculopathy, cervical region (ICD-10) Surgical History History of lumpectomy of left breast ?Z98.890 - Other specified postprocedural states (ICD-10) History of back surgery ?Z98.890 - Other specified postprocedural states (ICD-10) History of hysterectomy ?Z90.710 - Acquired absence of both cervix and uterus (ICD-10) Family History Mother Family history of cancer Father Family history of stroke Grandfather Family history of stroke Social History Within the past year, how often did you have a drink containing alcohol: never Score interpretation: A score less than 3 is consistent with normal alcohol consumption. Smoking status: Former smoker Non-prescribed substance use: denies use Previous occupational history: retired Highest level of school completed/degree received: high school graduate Are you now , , , , never or living with a partner: Little interest or pleasure in doing things: not at all Feeling down, depressed, or hopeless: not at all Feel stressed/tense/nervous/anxious/difficulty sleeping: not at all Do you think of yourself as: straight/heterosexual Gender Identity: female Meds Home Medications and Allergies Home Medications ?Medication ?Instructions ?Recorded ?Confirmed ?Type multivitamin 1 tab PO DAILY 10/26/22 12/17/23 History omeprazole 40 mg capsule,delayed 40 mg PO DAILY 10/26/22 12/17/23 History release calcium carbonate (Calcium 600) 600 mg PO DAILY 03/21/23 12/17/23 History meloxicam 15 mg tablet 15 mg PO DAILY 03/21/23 12/17/23 History gabapentin 300 mg capsule 300 mg PO TID #270 caps 06/07/23 12/17/23 Rx baclofen 10 mg tablet 5 mg PO TID PRN muscle spasm 07/19/23 12/17/23 History acetaminophen 325 mg tablet 650 mg PO Q6H PRN pain 08/30/23 12/17/23 History amlodipine 2.5 mg tablet 2.5 mg PO DAILY 08/30/23 12/17/23 History aspirin 81 mg tablet,delayed 81 mg PO DAILY 08/30/23 12/17/23 History release glucosamine sulfate 500 mg tablet 500 mg PO BID 08/30/23 12/17/23 History (Glucosamine) oxycodone-acetaminophen 5 mg-325 1 tab PO TID PRN pain 08/30/23 12/17/23 History mg tablet (Percocet) nortriptyline 25 mg capsule 25 mg PO DAILY #90 caps 10/17/23 12/17/23 Rx oxycodone-acetaminophen 5 mg-325 1 tab PO TID PRN pain #90 tabs 11/26/23 12/17/23 Rx mg tablet (Percocet) Allergies Allergy/AdvReac Type Severity Reaction Status Date / Time No Known Drug Allergies Allergy Verified 12/17/23 10:35 Exam Constitutional Documenting provider has reviewed patient's vital signs: yes Common normals: no apparent distress, oriented x3, healthy appearing, alert and well nourished General appearance: cooperative HENMT Common normals: normocephalic, hearing grossly normal bilaterally and moist oral mucous membranes Head and scalp: normocephalic Eye Common normals: PERRL Pupil: PERRL Neck & C-Spine Common normals: full ROM General: normal visual inspection Cervical spine: pain with cervical ROM and cervical spine tenderness Other: reports intermittent numbness tingling and weakness of RUE strength 5/5 on exam negative spurlings sensation intact and equal to BUE Chest Common normals: inspection of chest normal Respiratory Common normals: normal respiratory effort, no retractions and no use of accessory muscles Back & Pelvis Lumbar spine/lower back: ROM limited, pain with ROM and straight leg raise positive right Sacroiliac joints: SI joints normal Other: decreased sensation to right L4,5,S1 pattern strength 5/5 in BLE positive facet loading Extremity Common normals: normal to inspection Right upper extremity: shoulder joint (pain and limited ROM, tender to touch) Other: limited ROM with abduction and overhead extension, unable to perform scratch test due to pain Neuro Common normals: oriented x3, CN's II-XII intact bilaterally, moves all extremities, no focal motor deficits, no sensory deficits noted and deep tendon reflexes 2+ bilaterally Sensorium/orientation: alert Motor exam: strength 5/5 throughout and no movement abnormalities noted Psych Common normals: mental status grossly normal, thought process normal, cooperative, affect normal, speech normal and activity/motor behavior normal Speech: normal speech Thought process: normal thought process Results Imaging Lumbar MRI: Attestation: I have reviewed the pertinent imaging results. Radiologist's impression: 12-L1: Disc collapse with moderate diffuse disc/osteophyte complex. No definite central canal stenosis L1-L2: Asymmetric disc space narrowing with right-sided collapse. Endplate sclerosis. Moderate diffuse disc/osteophyte complex and facet osteoarthropathy. No central canal or left foraminal stenosis. Moderate to severe narrowing of the right neural foramen L2-L3: Asymmetric disc space narrowing with right-sided collapse. Endplate sclerosis. Bulky disc/osteophyte complex and ligamentum flavum hypertrophy and facet osteoarthropathy. Mild trefoil narrowing of the central canal. Moderate to severe right and moderate left foraminal stenosis L3-L4: Posterior decompression and transpedicular fusion. Interbody fusion. No disc bulge or herniation. No central or foraminal stenosis L4-L5: Disc space narrowing and disc desiccation. Mild diffuse disc bulge. Ligamentum flavum hypertrophy and facet osteoarthropathy. Moderate trefoil narrowing of the central canal. Moderate to severe bilateral foraminal stenosis L5-S1: Disc space narrowing and disc desiccation. Moderate diffuse disc/osteophyte complex. Ligamentum flavum hypertrophy and facet osteophyte arthropathy. No central canal or right foraminal stenosis. Moderate to severe narrowing of the left neural foramen Additional Findings Additional findings: If on a controlled substance or opioids, I have checked an [place] report on this patient and there are no aberrancies noted in the prescribing history.??If on a controlled substance or opioid a drug screen was completed and reviewed within the last year, and if there has not been a drug screen completed we ordered one today to monitor higher risk, state monitored pain medication use. As part of providing excellent, safe, comprehensive care, the following was completed at our patient's visit: 1. A medication reconciliation and review to ensure accurate knowledge of current/active medications, including asking our patients to inform us about any [id number] medications or herbal remedies/nutritional supplements/alternative remedies. 2. A review to specifically ensure our patients have had annual screening for screening for depression, screening for tobacco use, and screening for unhealthy alcohol use. For concerning screenings had a discussion with the patient, provided patient education, and recommended follow-up with primary care provider when appropriate. If patient noted with a risk of falling, they received education on strength, gait, and balance training to prevent future risk of falling. Assessment and Plan Assessment and Plan (1) Lumbar stenosis with neurogenic claudication: (2) Lumbar spondylosis: (3) Cervical radiculopathy: (4) Primary osteoarthritis, right shoulder: (5) Tendinopathy of right shoulder: (6) Cervical spinal stenosis: (7) Failed back syndrome: Plan refer back to Dr Malhotra for Right shoulder/arm pain right L4-5 L5-S1 TFESI under fluoroscopy for lumbar stenosis with NC continue current medications, tolerating well without side effects. reporting functional improvement f/u 2 weeks after [facility]
== END 2023-12-27 14:32 | disposition home or self-care (01) ==
LOC: PM 14:31
PROVIDERS: PCP Family Medicine; Visit Provider Nurse Practitioner
DX: M48.062 Spinal stenosis, lumbar region with neurogenic claudication (principal); M47.816 Spondylosis without myelopathy or radiculopathy, lumbar region; M54.12 Radiculopathy, cervical region; M19.011 Primary osteoarthritis, right shoulder; M48.02 Spinal stenosis, cervical region; M96.1 Postlaminectomy syndrome, not elsewhere classified; M77.8 Other enthesopathies, not elsewhere classified
CPT/HCPCS: G0463

== ENCOUNTER 2023-12-28 10:23 | Emergency (ER) | payer MEDICARE, OTHER, SELFPAY ==
[2023-12-28 10:27] VITALS: BP 153/83; PULSE 100; TEMP 36.6; O2SAT 97; BMI 35.1
--- NOTE | 2023-12-28 10:37 | CT_ITS ---
[address] [address] Patient Name: AARON JJ MRN: [facility]:[id number] date: 1945 Sex: F Assigned Patient Location: ER Current Patient Location: Accession/Order Number: [id number] Exam Date: 12/28/2023 11:05 Report Date: 12/28/2023 11:34 At the request of: SHIREEN ORTEGA Procedure: CT lumbar spine wo con EXAMINATION: CT lumbar spine wo con HISTORY: Radiculopathy right l4 COMPARISON: MR lumbar spine 12/18/2023, XR lumbar spine 01/03/2024 TECHNIQUE: Axial, Coronal, and Sagittal images were created without IV contrast. Dose reduction techniques were achieved by using automated exposure control and/or adjustment of mA and/or kV according to patient size and/or use of iterative reconstruction technique. FINDINGS: VERTEBRAL BODIES: Scoliotic curvature of lumbar spine. Posterior mechanical fusion L3-4 via bilateral pedicle screws and rods. No appreciable hardware fracture or loosening. No appreciable bone lesion or significant listhesis. Posterior decompression L3-4-5. FACET JOINTS: Multilevel moderate to marked degenerative facet arthropathy. No disruption or abnormal widening. DISCS: Marked disc space narrowing T11-T12, T12-L1. Marked narrowing at the right lateral margins of L1-2 and L2-3. Intervertebral disc spacers L3 on 4. Marked narrowing along left lateral margins of L4-5 and L5-S1. CENTRAL CANAL: Moderate-marked narrowing T12-L1. Moderate narrowing L1-2. No evidence of hemorrhage. Marked foramen narrowing on the right at L1-2, L2-3, L5-S1. Marked foramen narrowing on the left at L5-S1. PARASPINAL AREA: No visible mass. CT/CT lumbar spine wo con IMPRESSION: 1. Levoscoliosis and multilevel marked degenerative disc disease and facet arthropathy; not appreciable changed. 2. Prior mechanical fusion L3-4 and posterior decompression of L3-4-5. 3. No appreciable acute abnormality. Electronically authenticated by: EHSAN MILLER Date: 12/28/2023 11:34
--- OUTSIDE RECORDS SUMMARY | 2023-12-28 10:42 | XMS_ITS | CCD ---
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 Name Role Phone Unavailable Primary Care Provider JEREMIAH Arnold Primary Care Physician [phone] BRENT MALDONADO Consulting Unavailable LAKSHMIPATHY ., NARTAMIKA Admitting Chelly vailable LAKSHMIPATHY ., BARBARA Attending Chelly vailable DEREK, DR JEREMIAH Poole Primary Care Unavailable LAKSHMIPATHY ., BARBARA Consulting Chelly vailable JERRYSHMIPATHY ., BARBARA Attending Chelly vailable TRICIA ., [...] ., NARENDRANATH Admitting Chelly vailable LAKSHMIPATHY ., NARENDKAYLEY Consulting Chelly vailable RAMOS ., DR FELISHA Page Attending Unavailable RAMOS ., DR FELISHA Page Admitting Unavailable ZIEBER, DR EHSAN Haskins Consulting Unavailable DEREK, DR [...] RAMOS ., DR FELISHA Page Admitting Unavailable RMAOS ., DR FELISHA Page Attending Unavailable REED, [...] vailable LAKSHMIPATHY ., NARENDKENNAATH Consulting Chelly vailable LAKSHMIPATHY ., NARENDKENNAATH Attending Chelly vailable DEREK, DR JEREMIAH Poole Primary Care Unavailable LAKSHMIPATHY ., NARENDRANATH Attending Chelly vailable LAKSHMIPATHY ., OZZYENDKENNAATH Admitting Chelly vailable DEREK, DR JEREMIAH Poole [...] Osorio Consulting Unavailable NAYAN .LINDSAY Consulting Unavailable DR PEYTON MORENO Consulting Unavailable SHANNON, DR SHIREEN Jamil Attending Unavailchelsea ORTEGA, DR SHIREEN Jamil Admitting Unavailchelsea e REED, DR JEREMIAH Poole Primary Care Unavailable BRENT LONG Consulting Unavailable PAUL, DR EHSAN Haskins Consulting Unavailable LAKSHMIPATHY ., BARBARA Attending Chelly vailable LAKSHMIPATHY ., BARBARA Admitting Chelly vailable REED, DR JEREMIAH Poole Primary Care Unavailable LAKSHMIVLADISLAV ., BARBARA Consulting Chelly vailable RAMOS ., DR FELISHA Page Admitting Unavailable RAMOS ., DR FELISHA Page Consulting Unavailable RAMOS ., DR FELISHA Page Attending Unavailable REED, DR JEREMIAH Poole Primary Care Unavailable REED, DR JEREMIAH Poole Admitting Unavailable REED, DR JEREMIAH Poole Primary Care Unavailable REED, DR JEREMIAH Poole Attending Unavailable Jeremiah Reed Unavailable Ray Fofana Unavailable Daniellaitis , Andrius Glaser Attending Unavailable Giedraitis , Andrius Jailyn Attending Unavailable Giedraitis , Andrius Vytedwardo Attending Unavailable Giedraitis , Andrius Vytedwardo Attending Unavailable Giedraitis , Andrius Vytedwardo Attending Unavailable Giedraitis , Andrius Vytautwilliam Attending Unavailable Giedraitis , Andrius Vytautwilliam Attending Unavailable Giedraitis , Andrius Vytautwilliam Attending Unavailable DIDIER MALDONADO Attending Unavailable DIDIER MALDONADO Attending Unavailable Alexandro CARMONA Attending Unavailable BRENDA MARIN Attending Unavailable MIAHBRENDA DAMICO Referring Unavailable MIAHBRENDA Attending Unavailable MIAHBRENDA DAMICO Attending Unavailable Cayden ROBB P Admitting Unavailable COOKCayden P Attending Unavailable COOKCayden P Referring Unavailable COOK, Cayden P Referring Unavailable COOK, Cayden P Admitting Unavailable COOKCayden P Attending Unavailable MIAHBRENDA DAMICO Admitting Unavailable MIAHBRENDA Attending Unavailable MIAHBRENDA DAMICO Admitting Unavailable MIAHBRENDA Attending Unavailable MoussDeny saezmaag Admitting Unavailable Jacinto Kurtzd Attending Unavailable Ehsan Blair Consulting Unavailable MD Ehsan Blair Consulting Unavailable Ehsan Blair Consulting Unavailable Ehsan Blair Consulting Unavailable Ehsan Blair Consulting Unavailable Ehsan Blair Consulting Unavailable Johnnie, Ehsan Consulting Unavailable Johnnie, Ehsan Consulting Unavailable Johnnie, Ehsan Consulting Unavailable BRENDA MARIN Attending Unavailable BRENDA MARIN Attending Unavailable Allergies Allergy Classification Reported Allergen(s) Allergy Type Date of Onset Reaction(s) Facility (7 sources) patient allergy list reviewed by nurse or physicia Propensity to adverse reactions Comment:Done Zesty Other (7 sources) Allergies Reconciled Propensity to adverse reactions Unknown Zesty Other Medications Current Medications Medication Drug Class(es) Dates Sig (Normalized) Sig (Original) acetaminophen 325 mg oral tablet (1 source) Start: 04-13-2023 take 2 tablets by mouth every six hours as needed for pain acetaminophen 325 mg Tab 650 mg = 2 tab(s), Oral, q6hr, PRN Pain, Refills(s) 0 Start Date: 04/13/23 Status: Ordered acetaminophen 325 mg / oxyCODONE hydrochloride 2.5 mg oral tablet (11 sources) Opioid Agonist Start: 02-18-2019 take 1 tablet by mouth every twelve hours as needed for pain acetaminophen-oxyc odone 325 mg-2.5 mg oral tablet 1 tab(s), Oral, q12hr as needed for pain, Refill(s) 0 Start Date: 02/18/19 Status: Ordered amLODIPine 10 mg oral tablet (18 sources) Dihydropyridine Calcium Channel Harlan Start: 04-21-2022 take 1 tablet by mouth once daily amlodipine 10mg amLODIPine 10mg, 1 (one) Tablet daily # 30, 04/21/2022, No Refill. Active oral daily for 30 *Reorder from [employer] for eRx and Interaction Alerts* Apr, Active Start: 02-11-2019 take 2 tablets by [facility] once daily amLODIPine 2.5 mg Tab 5 mg = 2 tab(s), Oral, Daily, # 90 tab(s), Refills(s) 0 Start Date: 02/11/19 Status: Ordered take [facility] every twenty-four hours amLODIPine Besylate 5 MG 1 tablet Orally Once a day for 30 days Active Ocuvite (11 sources) Vitamin C Start: 02-03-2021 Ocuvite Oral, Daily, Refill(s) 0 Start Date: 02/03/21 Status: Ordered aspirin 81 mg delayed release oral tablet (13 sources) Platelet Aggregation Inhibitor, Nonsteroidal Anti-inflammatory Drug [...] Entry Oral for 0 *Pick strength-form from [employer] for eRX* 30 Mar, 2022 Active Start: [...] Ordered calcium citrate 950 mg oral tablet (7 sources) Start: 08-28-2023 calcium (as ca lcium citrate) 200 mg oral tablet 950 mg = 1 tab(s), Oral, BID, Refills(s) 0 Start Date: 08/28/23 Status: Ordered Start: 06-21-2022 take 1 mg by mouth twice daily calcium (as calcium citrate) 200 mg oral tablet mg tab(s), Oral, BID, Refills(s) 0 Start Date: 06/21/22 Status: Ordered ciprofloxacin 500 mg oral tablet (3 sources) Quinolone Antimicrobial Start: 10-09-2023 Cipro 500 mg Tab 500 mg = 1 tab(s), Oral, BID, Take twice daily x5 days starting the day prior to the procedure, # 10 tab(s), Refills(s) 0, Pharmacy: [facility]/pharmacy #[id number], 165, cm, 09/26/23 15:44:00 EDT, Height/Length Dosing, 91, kg, 09/26/23 15:44:00 EDT, Weight Dosing Start Date: 10/09/23 Status: Ordered Start: 06-11-2023 Cipro 500 mg T ab See Instructions, Take 1 tab day prior to procedure and 1 tab day of procdure - afterwards, # 2 tab(s), Refills(s) 0, Pharmacy: [facility]/pharmacy #[id number], 165, cm, 06/05/23 12:57:00 EST, Height/Length Dosing, 87, kg, 06/05/23 12:57:00 EST, Weight Dosing Start Date: 06/11/23 Status: Ordered gabapentin 300 mg oral capsule (18 sources) Anti-epileptic Agent Start: 04-13-2023 take 1 [...] Ordered glucosamine sulfate 500 mg oral capsule (14 sources) Start: 08-28-2023 take 1 capsule by [...] for 0 duration 5 years *Reorder from [employer] for eRx and Interaction Alerts* Nov, Active Melatonin (11 sources) Start: 02-03-2021 melatonin Once a day (at bedtime), Refills(s) 0 Start Date: 02/03/21 Status: Ordered meloxicam 15 mg oral tablet (13 sources) Nonsteroidal Anti-inflammatory Drug Start: 09-26-2023 meloxicam [...] day(s), # 30 tab(s), Refills(s) 11, Pharmacy: [facility]/pharmacy #[id number], 165, cm, 08/28/23 15:03:00 EDT, Height/Length Dosing, 90, kg, 08/28/23 15:03:00 EDT, Weight Dosing Start Date: 08/28/23 Stop Date: 08/22/24 Status: Ordered nortriptyline 25 mg oral capsule (18 sources) Tricyclic Antidepressant Start: 02-11-2019 take 1 capsule by mouth at bedtime nortriptyline 25 mg Cap 25 mg = 1 cap(s), Oral, Bedtime, Refills(s) 0 Start Date: 02/11/19 Status: Ordered omeprazole 40 mg delayed release oral capsule (18 sources) Proton Pump Inhibitor Start: 02-11-2019 take [...] # 30 tab(s), Refills(s) 11, Pharmacy: [id number], 165, cm, 06/21/22 14:53:00 EST, Height/Length Dosing, 87, kg, 06/21/22 14:53:00 EST, Weight Dosing Start Date: 06/21/22 Stop Date: 06/16/23 Status: Ordered Tudorza Pressair 400mcg/actuat (7 sources) Start: 04-12-2022 take 1 puff(s) by inhalation twice daily Tudorza Pressair 400mcg/actuat Tudorza Pressair 400mcg/actuat, 1 (one) Puff BID # 1, 04/12/2022, Ref. x12. Active inhalation BID *Pick strength-form from [employer] for eRX* 30 Mar, 2022 Active Start: 04-12-2022 take 1 puff(s) by in halation twice daily Tudorza Pressair 400mcg/actuat Tudorza Pressair 400mcg/actuat, 1 (one) Puff BID # 1, 04/12/2022, Ref. x12. Active inhalation BID for 30 *Pick strength-form from [employer] for eRX* 30 Mar, 2022 Active vibegron 75 MG Oral Tablet [Gemtesa] (1 source) Start: 08-28-2023 End: 08-22-2024 take 1 tablet by mouth once daily Gemtesa 75 mg oral tablet 75 mg = 1 tab(s), Oral, Daily, X 30 day(s), # 30 tab(s), Refills(s) 11, Pharmacy: [facility]/pharmacy #[id number], 165, cm, 08/28/23 15:03:00 EDT, Height/Length Dosing, 90, kg, 08/28/23 15:03:00 EDT, Weight Dosing Start Date: 08/28/23 Stop Date: 08/22/24 Status: Ordered Vision Formula (7 sources) Vision Formula A ctive Problems Active Problems Problem Classification Problem Date Documented Date Episodic/Chronic Abdominal hernia (1 source) Diaphragmatic hernia without obstruction or gangrene; Translations: [DIAPH HERNIA W/O OBST/GANGRENE] Onset: 3 Episodic Abdominal pain (11 sources) Abdominal tenderness 02-03-2021 Episodic Anxiety disorders [...] current use of drug therapy; Translations: [Other intermediate (current) drug therapy] Onset: 3 Episodic Other connective tissue disease (1 source) Other muscle spasm; Translations: [OTHER MUSCLE SPASM] Onset: 3 Episodic Other diseases of bladder and urethra (8 sources) Detrusor overactivity; Translations: [Overactive bladder] Onset: 3 Chronic Other diseases of bladder and urethra (11 sources) Overactive bladder 03-31-2021 Chronic Other diseases of bladder and urethra (4 sources) Male urethral stricture; Translations: [Unspecified urethral stricture, male, unspecified site] Onset: 3 Episodic Other diseases of bladder and urethra (11 sources) Traumatic urethral stricture 02-03-2021 Episodic Other diseases of bladder and urethra (12 sources) Urethral stricture; Translations: [Other urethral stricture, female] Onset: 4 02-11-2019 Episodic Other diseases of kidney and [...] Spondylosis; intervertebral disc disorders; other back problems (18 sources) Backache; Translations: [Cervicalgia] Onset: 2 02-11-2019 Episodic Sprains and strains (8 sources) Strain of muscle(s) and tendon(s) of the rotator cuff of right shoulder, subsequent encounter; Translations: [Strain of muscle(s) and tendon(s) of the rotator cuff of right shoulder, initial encounter] Onset: 3 Episodic Substance-related disorders (11 sources) Cigarette smoker 10-21-2019 Chronic Thyroid disorders [...] EXPOS COVID-19] Onset: 2 Urinary tract infections (11 sources) Chronic cystitis 10-21-2019 Chronic Urinary tract infections (20 sources) Acute urinary tract infection; Translations: [Urinary [...] 02-25-2022 Episodic Other aftercare (1 source) Other intermediate manager (current) drug therapy; Translations: [OTH OUTSOLE COMPRESSOR CURRENT DRUG THERAPY] Onset: 01-09-2022 Episodic Other [...] OF NICOTINE DEPEND] Onset: 01-09-2022 Episodic Unclassified (11 sources) Finding of sensation of bladder 02-03-2021 Unclassified (1 source) LOW BACK PAIN, UNSPECIFIED; Translations: [LOW BACK PAIN, UNSPECIFIED] Onset: 05-11-2022 Results Test Name Value Interpretation Reference Range Facility Ambulatory Visit Summaryon 0 12-25-2023 Ambulatory Visit Summary Ambulatory Visit Summary AARON JJ :1945 Visit Date:12/25/2023 Ambulatory Visit Instructions Your Diagnosis OAB (overactive bladder) Other urethral stricture, female Recurrent UTI Your Care Team Attending Physician [...] omeprazole (omeprazole 40 mg Cap-DR) Procedures Performed Cystoscopy (12/03/2023), Cystourethroscopy with dilation of urethral stricture (07/23/2023), Cystourethroscopy with dilation of urethral stricture (06/16/2016), Appendectomy, Biopsy of breast, Hysterectomy. Discharge Vitals Temperature (Temporal Artery) 37 ?C Heart Rate (Peripheral) 70 Respiratory Rate 16 Blood Pressure 137/86 Height 165 cm Height 65 in Weight 91 kg Weight 200.2 lb BMI 33.43 What to do next You Need to Schedule the Following Appointments Follow Up with BRENDA MARIN PA-C, URL When: Where: [address] [place] [address] [id number] Medications What How Much When Instructions Unchanged [...] cystitis Cigarette smoker Dorsalgia OAB (overactive bladder) Other urethral stricture, female Recurrent UTI Historical - Any problem that you are [...] choosing us for your care. Education Materials Injection Treatments for Urinary Incontinence, Care After The following information offers guidance on how to care for yourself after your procedure. Your health care provider may also give you more specific instructions. If you have problems or questions, contact your health care provider. What can I expect after the procedure? After this procedure, it is common to have: ? Trouble passing urine. ? A small amount of blood in your urine. ? A burning or stinging sensation when passing urine. ? No improvement in your urinary incontinence for a few weeks. Follow these instructions at home: Catheter care If you have a urinary catheter in place, follow care instructions from your health care provider. You may be told to do the following things: ? Wash your hands with soap and water for at least 20 seconds before and after touching the catheter. ? Keep the area around the catheter clean and dry. ? Make sure that the catheter drainage bag is always below the level of your bladder. This stops urine from going back into the tubing an (more content not included)... [facility] Urology Office/Clinic Noteon 12-25-2023 Urology Office/Clinic Note Urology Office/Clinic Note Chief Complaint P/O Botox HPI Staff 3 week f/u to Botox Dx: OAB, urethral stricture and recurrent UTI Dysuria: no Incomplete bladder emptying: feels she is not emptying Hematuria: no Frequency: at least once an hour Urgency: yes can delay less than 10 minutes Nocturia: 5 or more times Stream: weaker Leaking: no Post void dripping: no Wearing pads/ Depends: wears depends has to change at the least 1x daily Urge incontinence: yes Stress incontinence: no Incontinence without Sensory Awareness: no Abdominal pain: no Flank pain: no Sexual complaints: no History of Present Illness staff HPI reviewed and agree. Review of Systems PHQ Score Initial Depression Screen Score: 0 SCORE no fever, chills, malaise, myalgia. no rash/lesions. no chest pain, palpitations, or SOB. no abdominal pain, nausea, vomiting. no unilateral calf swelling, redness, pain Physical Exam Vitals & Measurements T: 37 ?C(Temporal Artery) HR: 70(Peripheral) RR: 16 BP: 137/86 HT: 65 in HT: 165 cm WT: 91 kg WT: 200.2 lb BMI: 33.43 General: nontoxic, NAD Mouth: moist mucosa Lungs: normal respiratory effort Cardio: regular rate, good distal perfusion Abdomen: nondistended, no suprapubic distention or tenderness, no CVA tenderness Neurologic: Grossly normal Skin: No rashes or suspicious lesions Assessment/Plan 1. OAB (overactive bladder) (N32.81: Overactive bladder) S/p Botox 100u 12/03/23 by [facility]. BBS 25 (14). Has failed Ditropan, Tolterodine, and Vesicare. Gemtesa/Myrbetriq were cost prohibitive. Drinks 2-3 cans Diet Pepsi daily, unwilling/unable to change this. States she has not had significant/noticeab le improvement post-op botox. Educated pt peak efficacy varies between pts but can typically be expected to start to improve within the next few wks and peak around 90 days post op. Unable to do a bladder scan today due to being out for maintenance. Discussed possible need for medication in addition to Botox or higher dosage for Botox instillation in future. However will need to wait as sxs will likely continue to improve. -1 wk nurse visit for bladder scan -Cont sx monitoring and call if no sx improvement in 3 wks, will try revisiting prior med. 2. Other urethral stricture, female (N35.82: Other urethral stricture, female) S/p UD done 06/16/[address] Moreno. [...] w Cipro x 3d. [2] UA today negative for blood and infection. -Call if experiencing UTI sxs Follow-up With When Contact Information MIAH ROE, BRENDA Poole, URL [address] [facility] [place] [id number] Additional Instructions: nurse visit in 1 wk w/ PVR, will call pt to schedule f/u Patient Education Injection Treatments for Urinary Incontinence, Care After Documentation recorded by the scrmallory Colon accurately reflects the services(s) I performed and decisions made by me. Authenticated by Brenda Marin PA-C on 12/25/2023 13:09:13. I, Abby Colon, personally scribed for Brenda Marin PA-C on 12/25/2023 13:06:58. . Problem List/Past Medical History Ongoing Chronic cystitis Cigarette smoker Dorsalgia OAB (overactive bladder) Other urethral stricture, female Recurrent UTI Historical Abdominal tenderness Acute UTI Dysuria Feeling of incomplete bladder emptying Frequency of urination Nocturia Other post-traumatic urethral stricture, female Urinary urgency Weak urine stream Procedure/Surgical History Cystoscopy (12/03/2023), Cystourethroscopy with dilation of urethral stricture (07/23/2023), [...] Tobacco Former smoker, quit more than 30 (more content not included)... [facility] Comment on above: Result Comment: Elec tronically Signed By: BRENDA MARIN PA-C\.br\Date and Time Signed: 12/25/23 13:09 EDT\.br\Electronically Co-Signed By: Abby Colon\.br\Date and Time Co-Signed: 12/25/23 13:07 EDT Inpatient Patient Summaryon 12-03-2023 Inpatient Patient Summary Inpatient Patient Summary [place] [id number] Clinical Summary Person Information Name: AARON JJ Age: 78 Years : 1945 Sex: Female PCP: JEREMIAH REED MD Marital Status: Phone: [phone] Race: White Ethnicity: Non- or Language: Macedonian Visit Id: Visit Reason: URINARY INCONTINENCE Speciality: Acuity: Enc Type: Outpatient Med Service: Surgery Arrival: 12/03/2023 13:41:56 Discharge: Dispo Type: Address: [address] [place] [address] [address] [place] [phone] Provider Notes: Diagnosis: Problems Active Recurrent UTI OAB (overactive bladder) Cigarette smoker Chronic cystitis Dorsalgia Urethral stricture Smoking Status: Functional Status: Sensory Deficits: History of Falls: Mobility Assistance Prior to Admission: ADLs: Current Level of Assistance for Self-Care/Mobility: Cognitive Status: Allergies No Known Allergies Laboratory or Other Results This Visit (last charted value for your 12/03/2023 visit) No Laboratory or Other Results This Visit Measurements: Height: 165 cm Weight: 91 kg Blood Pressure: Not Valued / Not Valued BMI: 33.43 kg/m2 Procedures No Procedures Documented Immunizations No Immunizations Documented This Visit Final Med List: acetaminophen-oxycod one (acetaminophen-oxyco done 325 mg-2.5 mg oral tablet) 1 Tablets By Mouth every 12 hours as needed as needed for pain. amlodipine (amLODIPine 2.5 mg Tab) 2 Tablets By Mouth every day. aspirin (aspirin 81 mg Oral EC Tab) 1 Tablets By Mouth every day. calcium citrate (calcium (as calcium citrate) 200 mg oral tablet) 1 Tablets By Mouth 2 times a day. ciprofloxacin (Cipro 500 mg Tab) 1 Tablets By Mouth 2 times a day. Take twice daily x5 days starting the day prior to the procedure. Refills: 0. gabapentin (gabapentin 300 mg Cap) 1 Capsules By Mouth 3 times a day. glucosamine (glucosamine 500 mg Cap) 1 Capsules By Mouth 2 times a day. melatonin once a day (at bedtime). meloxicam (meloxicam 15 mg Tab) multivitamin with minerals (Ocuvite) By Mouth every day. nortriptyline (nortriptyline 25 mg Cap) 1 Capsules By Mouth at bedtime. omeprazole (omeprazole 40 mg Cap-DR) 1 Capsules By Mouth every day. Care Team Members: Attending Physician: Cayden ROBB MD Consulting Physician: Referring Physician: Cayden ROBB MD Follow up: With: Address: When: BRENDA MARIN [address] [place], [place] [phone] Business (1) Comments: Call for followup appointment with Georgette Marin PA-C within the next three weeks or so. Push fluids to keep the urine clear. Expect the Botox to start working within the next 2-3 weeks. Have a great day! Patient Education Information: EU - Cystoscopy with Botox Injection Discharge Instructions (Custom) [facility] Main OR Intraoperative Recor don 12-03-2023 Main OR Intraoperative Record Main OR Intraoperative Record IntraOp Document Type FTURO Summary Primary Physician: Cayden ROBB MD Finalized Date/Time: 12/03/23 14:30:52 Pt. Name: AARON JJ Ilene/Sex: 1945 Female Med Rec #: [id number] Physician: Cayden ROBB MD Financial #: [id number] Pt. Type: O Room/Bed: / Admit/Disch: 12/03/23 13:41:56 - Institution: Case Times FTURO Entry 1 Patient Times In Room 12/03/23 14:15:00 Out Room 12/03/23 14:30:00 Procedure Times Start 12/03/23 14:21:00 Stop 12/03/23 14:23:00 Anesthesia Times Last Modified By: Neva Palacio 12/03/23 14:30:41 General Comments: BOTOX 100 UNITS EXP: LOT: [id number].GIORGIO MELENDEZ. Case Attendance FTURO Entry 1 Entry 2 Entry 3 Case Attendee Cayden ROBB MD, Kelsie E McClain WINDOWS SYSTEM ADMINKenisha A Role Performed Surgeon - Primary Relocation Counselor - Primary Scrub - Primary Time In 12/03/23 14:15:00 12/03/23 14:15:00 12/03/23 14:15:00 Time Out 12/03/23 14:30:00 12/03/23 14:30:00 12/03/23 14:30:00 Procedure CYSTOSCOPY LOCAL BOTOX CYSTOSCOPY LOCAL BOTOX CYSTOSCOPY LOCAL BOTOX INJECTION(.) INJECTION(.) INJECTION(.) Comments Last Modified By: Neva Palacio Kelsie E Burgderfer, Kelsie E 12/03/23 14:30:42 12/03/23 14:30:42 12/03/23 14:30:42 Surgical Procedures FTURO Entry 1 Procedure Description Procedure CYSTOSCOPY LOCAL BOTOX Modifiers . INJECTION Surgeon Description CYSTO BOTOX 100 UNITS Primary Procedure Yes Primary Surgeon Cayden ROBB MD Start 12/03/23 14:21:00 Stop 12/03/23 14:23:00 Anesthesia Type Local Surgical Service Urology Wound Class 2 - Clean-Contaminated Last Modified By: Neva Palacio 12/03/23 14:24:10 General Case Data FTURO Pre-Care Text: Classifies surgical wound, implements aseptic technique, initiates traffic control Entry 1 Case Information OR URO 1 FT Case Level None Wound Class 2 - Clean-Contaminated Specialty Urology Preop Diagnosis URINARY INCONTINENCE Postop Same As Preop Yes Postop Diagnosis URINARY INCONTINENCE Outcomes Met? Yes Last Modified By: Neva Palacio 12/03/23 14:20:19 Post-Care Text: The patient is free from signs and symptoms of infection EU IntraOp - FTURO Pre-Care Text: Implements protective measures prior to operative or invasive procedure, confirms identity before the operative or invasive procedure, verifies operative procedure, surgical site, and laterality Entry 1 EU Perioperative Protocols Procedure(s) CYSTOSCOPY LOCAL BOTOX Patient Identity Birthday, ID Band INJECTION(.) Verified (select at Check, Patient least 2): Participation Consents / H and P HandP, Surgery/Procedure Operative Site N/A Verified Consent Marking Verified Surgical Site Yes Laterality Verified n/a Verified Procedure Verified Yes Correct Patient Yes Position Verified Availability Equipment, Medication Time Out Cayden ROBB MD, Verified (If Participants Neva Palacio, Applicable) Kenisha Chang CST Time Out Complete 12/03/23 14:20:00 Allergies Reviewed? Yes Allergies Reviewed Self/Patient With Body Position High Lithotomy Prep Area VAGINA Prep Agents Betadine Solution Skin. Condition Unable to Visualize Description N/A Additional None Specimens Comment N/A Specimens Collected Vitals - EU Blood Pressure 125/72 Pulse 100 bpm Respirations 20 br/min SPO2 95 % EBL 0 IandO - EU Total Intake 0 mL Total Output 0 mL Outcomes Met? Yes Last Modified By: Neva Palacio 12/03/23 14:26:44 Post-Care Text: The patient is free from signs and symptoms of injury caused by extraneous objects Sign Out FTURO Entry 1 Before Patient Leaves OR Nurse verbally Yes Nurse verbally n/a confirms with the confirms with the team the name of team that the procedure(s) instrument, sponge, recorded and needle counts are correct (or N/A) Nurse verbally n/a Nurse verbally Yes confirms with the confirms with the team how the team whether there specimen is labeled are any equipment (including patient problems to be name), if applicable addressed Sign Out Complete 12/03/23 14:23:00 Last Modified By: Neva Palacio 12/03/23 14:24:01 Case Comments Finalized By: Neva Palacio Document Signatures Signed By: Neva Palacio 12/03/23 14:30 Neva Palacio 12/03/23 14:30 Neva Palacio 12/03/23 14:30 [facility] Main OR Preoperative Recordo n 12-03-2023 Main OR Preoperative Record Main OR Preoperative Record Holding Area Document Type FTURO Summary Primary Physician: Cayden ROBB MD Finalized Date/Time: 12/03/23 14:21:15 Pt. Name: AARON JJ Flori Odom/Sex: 1945 Female Med Rec #: [id number] Physician: Cayden ROBB MD Financial #: [id number] Pt. Type: O Room/Bed: / Admit/Disch: 12/03/23 13:41:56 - Institution: Case Times Holding FTURO Pre-Care Text: Verifies consent for planned procedure, identifies individual values and wishes concerning care, includes family members in perioperative teaching Secures patient's records' belongings, and valuables, maintains patient's dignity and privacy, and maintains patient confidentiality Entry 1 In Holding 12/03/23 14:00:00 Outcomes Met? Yes Last Modified By: Gypsy Cardenas LPN 12/03/23 14:00:29 Post-Care Text: The patient participates in decisions affecting his or her perioperative plan of care The patient's right to privacy is maintained Surgery Checklist FTURO Entry 1 Patient Birthday, ID Band Procedure History and Physical, Identification: Check, Patient Verification: Surgical Consent, With Participation Patient NPO after Midnight: n/a Personal Items: Glasses Limitations: up with rollator Complaints of Pain: No Skin Integrity Intact, Swisher, Warm, & Dry Vitals - EU Blood Pressure 125/72 Pulse 100 bpm Respirations 20 br/min SPO2 95 % Additional Other (See Comment) Specimens Comment ua dip Specimens Collected RN Reviewed Yes Last Modified By: Neva Palacio 12/03/23 14:20:47 Finalized By: Neva Palacio Document Signatures Signed By: Neva Palacio 12/03/23 14:20 Neva Palacio 12/03/23 14:20 Ronald GAVINEmiGypsy D 12/03/23 14:03 Neva Palacio 12/03/23 14:21 [facility] Operative Reporton Operative Report Operative Report Patient: AARON JJ Age: 78 years Sex: Female : 1945 Associated Diagnoses: None Author: Cayden ROBB MD Procedure Operative Information Details: Date/ Time: 12/03/2023 14:28:00. Pre-Op Dx: Overactive bladder (CTA80-SR N32.81, Working, Medical). Post-Op Dx: Same. Anesthesia Type: Local. Procedure: Local Cystoscopy with botox injection. Complications: None. Risks/Benefits/Infor med Consent: Surgical risks, benefits, details of the procedure have been explained to the patient, Full informed consent has been obtained. Intraoperative Information Prepped: Patient is brought back to the endoscopy suite, Female Prep (Patient is placed in modified dorso/lithotomy position, 5 cc 2% Xylocaine Jelly is placed per Urethra, Straight cath inserted to obtain urine specimen, 60 cc 2% Xylocaine liquid inserted into bladder, 5 additional cc 2% Xylocaine Jelly is placed per Urethra, Patient in sitting position for 20 min dwell), Urine Specimen Results Negative for infection, Patient prepped in the usual fashion with Betadine solution, 10 cc 2% Xylocaine Jelly is placed per Urethra, After waiting several minutes the Cystoscope is introduced. Procedure: The trigone was identified and evaluated, 20 template injection sites were identified, The bladder was instilled with enough saline to achieve adequate visualization for the injections, The needle was inserted approximately 2 mm into the detrusor spaced approximately 1 cm apart, A total of 20 injections with a 0.5 ml volume was delivered at each site for a total of 100 units of Botox. The Urethra is: Normal. Botox: 100 units. The ureteral orifices: Show efflux of clear urine. The Bladder is: Normal, No tumor, no stones. . Devices Implanted: None. Removal: Cystoscope is removed, The patient tolerated it well. Postoperative Information Discharge: Patient is discharged home with antibiotic coverage, Follow up arranged, F/U with Georgette Marin PA-C in about 3 weeks. Finish abx. . [facility] Comment on above: Result Comment: Elec tronically Signed By: Cayden ROBB MD\.br\Date and Time Signed: 12/03/23 14:29 EDT Outpatient Surgery Discharge Instructionon 12-03-2023 Outpatient Surgery Discharge Instruction Outpatient Surgery Discharge Instruction [address] [address] Patient Discharge Instructions PERSON INFORMATION Name: AARON JJ Date of : 1945 Current Date: 12/03/2023 14:28:09 PHYSICIANS Admitting Physician: Cayden ROBB MD Comment: Discharge Diagnosis: AARON JJ has been given the following list of follow-up instructions, prescriptions, and patient education materials: IF UNABLE TO CONTACT YOUR PHYSICIAN AND YOU FEEL IT IS AN EMERGENCY, GO TO THE NEAREST EMERGENCY ROOM OR CALL 911 Follow up: With: Address: When: BRENDA MARIN [address] [place] [address] [phone] [facility] (1) Comments: Call for followup appointment with Georgette Marin PA-C within the next three weeks or so. Push fluids to keep the urine clear. Expect the Botox to start working within the next 2-3 weeks. Have a great day! Comment: PATIENT EDUCATION INFORMATION Instructions: Cystoscopy with Botox injection ? Voiding after the procedure: there may be some pain, burning, urgency, frequency and blood tinged urine following the procedure. These symptoms usually resolve within 2-5 days. Drink the amount of fluid it takes to keep the urine pink to yellow or clear in color. Drinking enough water and fluids will help to ease any discomfort after your procedure. ? It may take a few days to a week to notice a gradual improvement in the overactive bladder symptoms. ? If you are having problems that seem out of the ordinary, please call. ? If unable to contact your physician and you feel it is an emergency, go to the nearest emergency room or call 911 ? Do not lift more than fifteen pounds for 1-2 days. If you see a lot of blood, you probably did too much. ? Diet ? you may resume your normal diet. ? Pain control ? You may take extra strength Tylenol or Motrin for discomfort. ? Call if you have a fever over 100 degrees. АННА Zhang CYNTHIA J, have received the [...] to serve you. Thank you for choosing [facility] Ambulatory Visit Summaryon 0 09-26-2023 Ambulatory Visit Summary AARON JJ :1945 Visit Date:09/26/2023 Ambulatory Visit Instructions Your [...] Schedule the Following Appointments Follow Up with BRENDA MARIN PA-C, URL When: Comments: flaquita kaplan/ Where: [address] [place] [address] [phone] Medications What How Much When Instructions Unchanged [...] including vitamins, herbs, eye drops, creams, and tzxl-lbf-gownubt medicines. ? Any problems you or family [...] are or (more content not included)... [facility] Patient Educationon 09-26-19 24 Patient Education Urology Botulinum Toxin Bladder Injection [...] including vitamins, herbs, eye drops, creams, and muxy-thj-wkhsvhx medicines. ? Any problems you or family [...] tells you to take them. ? Taking jpqx-nkt-ubeiwyd medicines, vitamins, herbs, and supplements. General instructions [...] these instructions at home: Medicines ? Take haqc-vfo-zyxrzee and prescription medicines only as told by [...] health ca (more content not included)... [facility] Urology Office/Clinic Noteon 09-26-2023 Urology Office/Clinic [...] this time. Follow-up With When Contact Information BRENDA MARIN PA-C, URL [address] [facility] [place] [address] [phone] Additional Instructions: sched Botox w/ Patient Education Botulinum Toxin Bladder Injection Documentation recorded by the umm Colon accurately reflects the services(s) I performed and decisions made by me. Authenticated by Brenda Marin PA-C on 09/26/2023 17:32:47. Abby Zhang, personally scribed for Brenda Marin PA-C [...] tobacco c (more content not included)... [facility] Comment on above: Result Comment: Elec [...] Duration: 30 Days Refills: 11 Pickup at [facility]/pharmacy #6177 New vibegron (Gemtesa 75 mg oral tablet) 1 Tablets By Mouth Every day Urethral stricture OAB (overactive bladder) Recurrent UTI Duration: 30 Days Refills: 11 Pickup at [facility]/pharmacy #6177 Unchanged acetaminophen-oxycod one (acetaminophen-oxyco done 325 [...] Capsules By Mouth Every day Pharmacy Information [facility]/pharmacy #[id number]: [address], [place] [phone] Allergies No Known Allergies Problems Ongoing - [...] you for choosing us for your care. [facility] Patient Educationon 08-28-19 Patient Education [...] health care provider. General instructions ? Take jwkx-cdj-qwdsclb and prescription medicines only as told by [...] monitor yo (more content not included)... [facility] Urology Office/Clinic Noteon 08-28-2023 Urology Office/Clinic [...] day(s), # 30 tab(s), Refills(s) 11, Pharmacy: [facility]/pharmacy #[id number], 165, cm, 08/28/23 15:03:00 EDT, Height/Length Dosing, 90, kg, 08/28/23 15:03:00 EDT, Weight Dosing vibegron, 75 mg = 1 tab(s), Oral, Daily, X 30 day(s), # 30 tab(s), Refills(s) 11, Pharmacy: [facility]/pharmacy #[id number], 165, cm, 08/28/23 15:03:00 EDT, Height/Length Dosing, 90, kg, 08/28/23 15:03:00 EDT, Weight Dosing 27405 Measure Post Void residual urine and/or bladder capacity by US- non-imaging Body Mass Index (BMI) documented 3008F Complex E&M Add on G2211 Current tobacco non-user 1036F Depression Screening Negative 3352F E&M of Est. Patient Moderate 30-39 Min 03630 Influenza immunization status assessed 1030F Medication list [...] Urnls Dip Stick Auto w/o Microscopy POC 99731 2. Urethral stricture (N35.919: Unspecified urethral stricture, [...] day(s), # 30 tab(s), Refills(s) 11, Pharmacy: [facility]/pharmacy #[id number], 165, cm, 08/28/23 15:03:00 EDT, Height/Length Dosing, 90, kg, 08/28/23 15:03:00 EDT, Weight Dosing vibegron, 75 mg = 1 tab(s), Oral, Daily, X 30 day(s), # 30 tab(s), Refills(s) 11, Pharmacy: [facility]/pharmacy #[id number], 165, cm, 08/28/23 15:03:00 EDT, Height/Length Dosing, 90, kg, 08/28/23 15:03:00 EDT, Weight Dosing 10297 Measure Post Void residual urine and/or bladder capacity by US- non-imaging Body Mass Index (BMI) documented 3008F Complex E&M Add on G2211 Current tobacco non-user 1036F Depression Screening Negative 3352F E&M of Est. Patient Moderate 30-39 Min 15936 Influenza immunization status assessed 1030F Medication list [...] 50k Proteus (more content not included)... [facility] Comment on above: Result Comment: Elec tronically Signed By: BRENDA MARIN PA-C\.mario\Date and Time Signed: 08/28/23 15:38 EDT Physician Orderon 08-02-2023 Physician Order [id number] #1.00TIFF [facility] Consent for Procedure/Surger yon 07-23-2023 Consent for Procedure/Surgery [id number] 4#1.00TIFF [facility] Consent for Treatmenton 07-12 Consent for Treatment [id number] 1#1.00TIFF [facility] Inpatient Patient Summaryon 07-23-2023 Inpatient Patient Summary [place] [id number] Clinical Summary Person Information Name: AARON JJ Age: 78 Years : 1945 Sex: Female PCP: JEREMIAH REED MD Marital Status: Phone: [phone] Race: White Ethnicity: Non- or Language: Macedonian Visit Id: Visit Reason: URETHER STRICTURE AND RECURRENT UTI Speciality: Acuity: Enc Type: Outpatient Med Service: Surgery Arrival: 07/23/2023 13:44:06 Discharge: Dispo Type: Address: [address] [place] [address] [address] [phone] Provider Notes: Diagnosis: Problems Active Recurrent UTI [...] Follow up: With: Address: When: BRENDA MARIN [address] [place] [address] [phone] [facility] (1) Comments: Call for followup appointment with Georgette Marin PA-c within the next 2 months or so to monitor you. Please finish your antibiotics and have a great day. Patient Education Information: EU - Cystoscopy with Urethral Dilation Discharge Instructions (Custom) [facility] IntraOperative Documentson 0 07-23-2023 IntraOperative Documents [id number] 5#1.00TIFF [facility] Main OR Intraoperative Recor don 07-23-2023 Main OR Intraoperative Record IntraOp Document Type FTURO Summary Primary Physician: Cayden ROBB MD Finalized Date/Time: 07/23/23 14:33:02 Pt. Name: AARON JJ Ilene/Sex: 1945 Female Med Rec #: [id number] Physician: Cayden ROBB MD Financial #: [id number] Pt. Type: O Room/Bed: / Admit/Disch: 07/23/23 [...] Son Tellez Role Performed Surgeon - Primary Relocation Counselor - Primary Scrub - Primary Time In 07/23/23 14:19:00 07/23/23 14:19:00 07/23/23 14:19:00 Time Out 07/23/23 14:31:00 07/23/23 14:31:00 07/23/23 14:31:00 Procedure CYSTOSCOPY LOCAL WITH CYSTOSCOPY LOCAL WITH CYSTOSCOPY LOCAL WITH URETHRAL DILATION(.) URETHRAL DILATION(.) URETHRAL DILATION(.) Comments Last Modified By: Jonh ALVARES, Crissy Borja RN, Crissy Borja RN, Crissy Hollins 07/23/23 Codie Hollins 07/23/23 Codie Hollins 07/23/23 14:26:27 14:26:27 14:26:27 Surgical Procedures FTURO [...] Met? Yes RECURRENT UTI Last Modified By: Crissy Borja RN 07/23/23 14:21:01 Post-Care Text: The patient is [...] By: Crissy Borja RN 07/23/23 14:33 [facility] Main OR Preoperative Recordo n 07-23-2023 Main OR Preoperative Record Holding Area Document Type FTURO Summary Primary Physician: Cayden ROBB MD Finalized Date/Time: 07/23/23 14:14:06 Pt. Name: AARON JJ /Sex: 1945 Female Med Rec #: [id number] Physician: Cayden ROBB MD Financial #: [id number] Pt. Type: O Room/Bed: / Admit/Disch: 07/23/23 [...] JOSE Markham RN, Ruthann 07/23/23 14:14 [facility] Operative Reporton Operative Report Patient: AARON JJ Age: 78 years Sex: Female : 1945 Associated Diagnoses: None Author: Cayden ROBB MD Procedure Operative Information Details: Date/ Time: 07/23/2023 14:29:00. Pre-Op Dx: Recurrent UTI (LEJ32-BB N39.0, Working, Medical), Unspecified urethral stricture, female (QXG10-KN N35.92, Working, Medical), Overactive bladder (EIF15-SW N32.81, Working, Medical). Post-Op Dx: Same. Anesthesia [...] urine. The Urethra was dilated to: 30 Vietnamese w/ sounds. Devices Implanted: None. Removal: Cystoscope is removed, The patient tolerated it well. Postoperative Information Discharge: Patient is discharged home with antibiotic coverage, Follow up arranged, F/U with Georgette Marin PA-C within the next 2-3 months. Monitor the urinary flow pattern. The goal is also to decrease UTI frequency. . [facility] Comment on above: Result Comment: Elec tronically Signed By: Cayden ROBB MD\.br\Date and Time Signed: 07/23/23 14:30 EDT Outpatient Surgery Discharge Instructionon 07-23-2023 Outpatient Surgery Discharge Instruction [place] [id number] Patient Discharge Instructions PERSON INFORMATION Name: AARON [...] Follow up: With: Address: When: BRENDA MARIN [address] [place] [phone] [facility] (1) Comments: Call for followup appointment [...] Date You may receive a survey from [employer] asking you to rate your care experience. Your feedback is important and will help us understand what we do well and how we can improve the quality of care we provide to you, your loved ones and our community. It?s an honor to serve you. Thank you for choosing [facility] C Urineon 07-11-2023 Bacteria identified Cx Nom (U) Microbiology PROCEDURE: Urine Culture [R1] SOURCE: U CleanCatch BODY SITE: COLLECTED DATE/TIME: 07/09/2023 11:55 EST RECEIVED DATE/TIME: 07/09/2023 18:11 EST START DATE/TIME: 07/09/2023 18:11 EST FREE TEXT SOURCE: BRENDA MARIN PA-C, PA-C, BRENDA Poole FINAL REPORTS Final Report [] Verified Date/Time: 07/11/2023 10:48 EST 20,000 cfu/ml Escherichia coli 10,000 cfu/ml Proteus mirabilis SUSCEPTIBILITY RESULTS LEGEND: S=Susceptible, N/R=Not Reported, Blank=Data not available, or drug not advisable or tested, I=Intermediate, ESBL=Extended spectrum beta-lactamase, R=Resistant, TFG=Thymidine-depend ent strain, ZAHIRA=Beta-lactamase positive, DARISU=mcg/m;(mg/L), S*=Predicted susceptible interp, R*=Predicted resistant interp EC [...] Locations R1: This test was performed at: [facility], [address] [place] [address], [address] , , [facility] Comment on above: Performed By: #### 2 [id number] ####[place] [address] [place] [address] Ambulatory Visit Summaryon 0 07-09-2023 Ambulatory Visit Summary AARON JJ DOB:1945 Visit Date:07/09/2023 Ambulatory Visit Instructions Your Diagnosis Chronic cystitis Your Care Team Attending Physician - MIAH [...] Follow-Up Appointments Sunday 9:00 AM EST Where: [facility] Sunday 2:30 PM EDT Where: [facility] Medications What How Much [...] for choosing us for your care. [facility] C Urineon 06-07-2023 Bacteria identified Cx Nom (U) Microbiology PROCEDURE: Urine Culture [R1] SOURCE: U CleanCatch BODY SITE: COLLECTED DATE/TIME: 06/05/2023 13:47 EST RECEIVED DATE/TIME: 06/05/2023 17:49 EST START DATE/TIME: 06/05/2023 17:49 EST FREE TEXT SOURCE: BRENDA MARIN PA-C, PA-C, JENNIFER E FINAL REPORTS Final Report [] Verified [...] Locations R1: This test was performed at: [facility], [address] [place] [address], [address]- , , [facility] Comment on above: Performed By: #### 2 [id number] #### [facility] [address] [place] [address] Lab Reportson 06-06-2023 Lab Reports [id number] 7#1.00TIFF [facility] Screenson 06-06-2023 Screens [id number]# 1.00TIFF [facility] Ambulatory Visit Summaryon 0 06-05-2023 Ambulatory Visit Summary KYLE JJRichy Ruby :1945 Visit Date:06/05/2023 Ambulatory Visit Instructions Your Diagnosis OAB (overactive bladder) Urethral stricture Recurrent UTI Your Care Team Attending Physician - BRENDA MARIN PA-C Primary Care Physician - JEREMIAH ERED MD This Is Your Medications List Contact [...] Following Appointments Follow Up with CEZAR BERNAL, CASSIE Seay When: Where: [address] [place], [place] [phone]- Medications What How Much When Instructions Unchanged [...] The main (more content not included)... [facility] Patient Educationon 06-05-19 Patient Education Urology [...] Follow these instructions at home: ? Take cgzd-uof-urtiaix and prescription medicines only as told by [...] provider. Document Revised: 03/07/2022 Document Reviewed: 03/07/2022 [employer] Patient Education ? 2022 [employer] 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 Getting up 3-4x/night, every night. Denies current pain/burning and visible blood in urine. States she has had 2 UTI's since April. Was hospitalized back in March @ [facility] due to [place]. (No C&S at [facility]) Also at [facility]. C&S 03/24/23 *>100k E Coli & 50-60k [...] available) Was hospitalized back in March @ [facility] due to falling. (No C&S at [facility]) Also at [facility]. UA today shows trace-intact blood, positive nitrates [...] evening fluids and reducing bladder irritants. Ordered: 49580 Measure Post Void residual urine and/or bladder [...] Urnls Dip Stick Auto w/o Microscopy POC 77295 Follow-up With When Contact Information CEZAR BERNAL, Cayden Hollins, URL [address] [address]- Additional Instructions: Schedule cysto/UD Patient Education Urethral [...] mg= 2 tab (more content not included)... [facility] Comment on above: Result Comment: Elec tronically Signed By: BRENDA MARIN PA-C\.br\Date and Time Signed: 06/05/23 17:59 EST\.br\Electronically Co-Signed By: Dori Mantilla\.br\Date and Time Co-Signed: 06/05/23 13:35 EST Insurance Correspondence Off iceon 04-19-2023 Insurance Correspondence Office [id number] 8#1.00TIFF [facility] Discharge Instructionson Discharge Instructions [id number] 8#1.00TIFF [facility] Outside Recordson 04-14-2023 Outside Records [id number] 3#1.00TIFF [facility] BMPon 04-13-2023 Anion gap [Moles/Vol] 14 mmol/L Normal 6-16 [facility] Comment on above: Performed By: #### 2 695874, [id number], [id number] #### [facility] [address] [place] [address] Calcium [Mass/Vol] 9.1 mg/dL Normal 8.9-11.1 [facility] Comment on above: Performed By: #### 2 649561, [id number], [id number] #### [facility] [address] [place] [address] Chloride [Moles/Vol] 114 mmol/L High 101-111 [facility] Comment on above: Performed By: #### 2 799760, [id number], [id number] #### [facility] [address] [place] [address] CO2 [Moles/Vol] 20 mmol/L Low 21-31 [facility] Comment on above: Performed By: #### 2 785386, [id number], [id number] #### [facility] [address] [place] [address] Creatinine [Mass/Vol] 1.2 mg/dL Normal 0.5-1.3 [facility] Comment on above: Performed By: #### 2 586220, [id number], [id number] #### [facility] [address] [place] [address] Glucose [Mass/Vol] 96 mg/dL Normal 55-199 [facility] Comment on above: Result Comment: If t his glucose result represents a fasting glucose, interpretation should refer to the following reference range: 55-99 mg/dL Performed By: #### 2 710645, [id number], [id number] #### [facility] [address] [place] [address] Potassium [Moles/Vol] 3.9 mmol/L Normal 3.5-5.3 [facility] Comment on above: Performed By: #### 2 031273, 0775421, [id number] #### [facility] [address] [place] [address] Sodium [Moles/Vol] 144 mmol/L Normal 135-145 [facility] Comment on above: Performed By: #### 2 114447, [id number], [id number] #### [facility] [address] [place] [address] Urea nitrogen [Mass/Vol] 29 mg/dL High 5-21 [facility] Comment on above: Performed By: #### 2 113593, 8098986, [id number] #### [facility] [address] [place] [address] Urea nitrogen/Creatinine [Mass ratio] 24 No Units High 10-20 [facility] Comment on above: Performed By: #### 2 858808, [id number], [id number] #### [facility] [address] [place] [address] CHEMISTRYOrdered By: SYSTEM SYSTEM on 04-13-2023 Anion gap [Moles/Vol] 14 mmol/L Normal 6 - 16 mEq/L [facility] Remisol Calcium [Mass/Vol] 9.1 mg/dL Normal 8.9 - 11. 1 mg/dL [facility] Chloride [Moles/Vol] 114 mmol/L High 101 - 1 11 mmol/L [facility] Cholesterol [Mass/Vol] 164 mg/dL Normal 120 - 200 mg/dL [facility] Cholesterol in HDL [Mass/Vol] 62 [...] 1.2 mg/dL Normal 0.5 - 1.3 mg/dL [facility] Remisol GFR/1.73 sq M.predicted among non-blacks MDRD (S/P/Bld) [Vol rate/Area] 47 mL/min/1.73 m2 Low >=59mL/min/1 .73 m2 [facility] Chem S Comment on above: Interpretive Data: C hronic kidney disease could be indicated at eGFR's of less than 60 mL/min/1.73m2. Kidney failure is indicated at less than 15 mL/min/1.73m2. Glucose [Mass/Vol] 96 mg/dL Normal 55 - 199 mg/dL [facility] Remisol Comment on above: Interpretive Data: I f this glucose result represents a fasting glucose, interpretation should refer to the following reference range: 55-99 mg/dL Potassium [Moles/Vol] 3.9 mmol/L Normal 3.5 - 5.3 mmol/L [facility] [place] Remisol Sodium [Moles/Vol] 144 mmol/L Normal 135 - 145 mmol/L [facility] Remisol Triglyceride [Mass/Vol] 106 mg/dL Normal <=149mg/dL [facility] [place] Remisol Urea nitrogen [Mass/Vol] 29 mg/dL High 5 - 21 mg/dL [facility] Remisol Urea nitrogen/Creatinine [Mass ratio] 24 mg/mg High 10 - 20 [facility] Remisol Discharge Note-Nursingon Discharge Note-Nursing AARON JJ [...] oral tablet) glucosamine oxymetazoline nasal (Afrin 0.05% Flippin) Procedure History Cystourethroscopy with dilation of urethral [...] Pending Diagnostic Test Results None Pharmacy Information [facility] Discharge Instructions Follow up appts as writtenNo driving until cleared by PCP or neuroTake all medications as ordered, monitor prn medication use Previously Scheduled Follow-Up Appointments Sunday 1:00 PM EST With: BRENDA MARIN PA-C Where: [facility] Inpatient Clinical Summaryon 04-13-2023 Inpatient Clinical Summary [place] [id number] Clinical Summary Person Information: Name: AARON JJ Age: 78 Years : 1945 Sex: Female PCP: JEREMIAH REED MD Marital Status: Race: White Ethnicity: Non- or Language: Macedonian Visit Id: Visit Reason: Altered mental status; AMS Speciality: Acuity: Enc Type: Observation Med Service: Medical Arrival: 04/12/2023 12:15:14 Discharge: Dispo Type: Admitted as IP to this [facility] Address: [address] [place] [address] [address] [place] [id number] Provider Notes: Diagnosis: 1:AMS (altered mental status); [...] With: Address: When: Ehsan Blair MD, NEU [place] [id number] Within 1 to 2 weeks Comments: This office is closed on Fridays. Please call the office on Sunday April 16, 2023 for a follow up appiontment. Thank you. With: Address: When: JEREMIAH REED [address] [place] [address] Business (1) Within 2 to 4 days Comments: Call for followup appointment With: Address: When: [facility] Comments: Call for followup appointment for anxiety/depression care. Type Location Start Finish State URO Office Visit [facility] [place] AYDE [place] 06/05/2023 1:00 PM 06/05/2023 1:15 PM Confirmed Patient Education Information: Confusion aspirin [facility] Inpatient Patient Summaryon 04-13-2023 Inpatient Patient Summary [address] [address] Patient Discharge Instructions PERSON INFORMATION [...] With: Address: When: [facility] [address] [place] [address] Within 1 to 2 weeks Comments: This office is closed on Fridays. Please call the office on Sunday April 16, 2023 for a follow up appiontment. Thank you. With: Address: When: JEREMIAH REED [facility] [place] [address] [employer] Within 2 to 4 days Comments: Call for followup appointment With: Address: When: [facility] Comments: Call for followup appointment for anxiety/depression care. In the event that this physician does not participate in your insurance network, please consult with your insurance company to find a nearby participating provider. Type Location Start Finish State URO Office Visit [facility] [place] AYDE [place] 06/05/2023 1:00 PM 06/05/2023 [...] 2 adán (more content not included)... [facility] Interdisciplinary Note - Danie e Manageron 04-13-2023 Interdisciplinary Note - Financial Planning Analyst Pt is awake and alert in bed, previously rounded with Radha PENNY. Pending Neurology to see and pending MRI. Pending therapy evals, Observation status reviewed [facility] form reviewed, signed by pt and original provided. PT is independent from home, family at bedside and will transport at [place], Declines any concerns or anticipate DC needs. . PCP verified and insurance information reviewed and DME discussed. Contact information provided and white board updated. CRM returned to pt room to discuss DC plans. PT= HH and pt is agreeable to HH at [place], [place] [facility] as she has used in past, referral to resource center, anticipate DC home today. Nursing and RECEIVING MANAGER updated. [facility] Comment on above: Result Comment: Elec tronically Signed By: Thu ALVARES, Sallie\.mario\Date and Time Signed: 04/13/23 12:17 EST Interdisciplinary Note - Ashly n 04-13-2023 Interdisciplinary Note - OT OT [facility] six clicks score 21/24 = no further OT needs. Patient requires Dist sup w/ transfers. completes Adls w/ dist sup after set up. Al inpatient OT services as pt appears close to baseline status and has all bathroom dme already in place at home. [facility] Interdisciplinary Note - Soc ial Workeron 04-13-2023 Interdisciplinary Note - [employer] This SW met with patient today to [...] any substances. SW will remain available. [facility] Lipid Panelon 04-13-2023 Cholesterol [Mass/Vol] 164 mg/dL Normal 120-200 [facility] Comment on above: Performed By: #### 2 119010, 0050645, [id number] #### [facility] [address] [place] [address] Cholesterol in HDL [Mass/Vol] 62 mg/dL Invalid Interpretation Code [facility] Comment on above: Result Comment: HDL > or equal to 60 mg/dL: Low cardiovascular risk HDL < 40 mg/dL : High cardiovascular risk Performed By: #### 2 201279, 6416369, 24340641 #### [facility] [address] [place] [address] Cholesterol in LDL [Mass/Vol] 73 mg/dL Normal <=129 [facility] Comment on above: Performed By: #### 2 702912, 3327165, 09166811 #### [facility] [address] [place] [address] Cholesterol in VLDL [Mass/Vol] 21 mg/dL Normal 7-40 [facility] Comment on above: Performed By: #### 2 731758, 0980998, 67356867 #### [facility] [address] [place] [address] Triglyceride [Mass/Vol] 106 mg/dL Normal <=149 F [facility] Comment on above: Performed By: #### 2 705946, 4731030, 52923848 #### [facility] [address] [place] [address] MRI Brain w/o Contraston MRI Brain w/o [...] LESLEY Technologist: MAXI Technical Comments None [facility] Message from Medicareon Message from Medicare [id number] #1.00TIFF Normal [facility] Monitor Recordon 04-13-2023 Monitor Record [id number] 6#1.00TIFF Normal [facility] Monitor Record [id number] 8#1.00TIFF Normal [facility] eGFRon 04-13-2023 GFR/1.73 sq M.predicted among non-blacks MDRD (S/P/Bld) [Vol rate/Area] 47 mL/min/1.73 m2 Low >=59 [facility] Comment on above: Order Comment: Order added by Discern Expert. Result Comment: Property Coordinator sally kidney disease could be indicated at eGFR's of less than 60 mL/min/1.73m2. Kidney failure is indicated at less than 15 mL/min/1.73m2. Performed By: #### 2 119002, 4535811, 23253533 #### [facility] [address] [place] [address] Auto Diffon 04-12-2023 Basophils/100 WBC (Bld) 0.4 % Normal 0.0-2.0 [facility] Comment on above: Order Comment: Order Added by Discern Expert. Performed By: #### 2 911367, 23127281, 9370721, 54708066, 7609844, 58825911, 229668129, 15302935, 5562693, 8592070, 1360228, 1896545 ####[facility] [address] [place] [address] Basophils/Leukocytes Auto (Bld) [Pure # fraction] 0.1 E9/L Normal 0.0-0.2 [facility] Comment on above: Order Comment: Order Added by Discern Expert. Performed By: #### 2 100258, 72951036, 5545762, 94476328, 5327427, 23465157, 484341095, 48708412, 9636416, 4784094, 9076596, 7568310 ####[facility] [address] [place] [address] Eosinophils/100 WBC (Bld) 0.1 % Normal 0.0-8.0 [facility] Comment on above: Order Comment: Order Added by Discern Expert. Performed By: #### 2 019571, 24837746, 9810873, 66185577, 5873594, 71706064, 965320446, 41836183, 2775184, 2588274, 7018650, 1461829 ####[facility] [address] [place] [address] Eosinophils/Leukocytes Auto (Bld) [Pure # fraction] 0.0 E9/L Normal 0.0-0.5 [facility] Comment on above: Order Comment: Order Added by Discern Expert. Performed By: #### 2 547879, 33049238, 8947698, 47338064, 6076602, 12249129, 239154458, 47453619, 2922621, 3669489, 1960901, 6973256 ####[facility] [address] [place] [address] Lymphocytes/100 WBC (Bld) 9.7 % Low 14.0-50.0 [facility] Comment on above: Order Comment: Order Added by Discern Expert. Performed By: #### 2 831272, 77631703, 2428789, 39991316, 5696827, 39323656, 038599982, 54827760, 7782099, 7165501, 1178960, 6595763 ####[facility] [address] [place] [address] Lymphocytes/Leukocytes Auto (Bld) [Pure # fraction] 1.5 E9/L Normal 1.0-4.0 [facility] Comment on above: Order Comment: Order Added by Discern Expert. Performed By: #### 2 388741, 69714375, 1684331, 44890315, 2102837, 97411294, 244753609, 33055313, 8282940, 2798114, 2310989, 2637734 ####[facility] [address] [place] [address] Monocytes/100 WBC (Bld) 7.8 % Normal 4.0-14.0 [facility] Comment on above: Order Comment: Order Added by Discern Expert. Performed By: #### 2 421622, 37648537, 7798321, 56418889, 9719301, 39354880, 540825196, 48615373, 0745368, 4257096, 9427255, 9492590 ####[facility] [address] [place] [address] Monocytes/Leukocytes Auto (Bld) [Pure # fraction] 1.2 E9/L High 0.2-1.0 [facility] Comment on above: Order Comment: Order Added by Discern Expert. Performed By: #### 2 838094, 42429946, 0291865, 58095304, 1517648, 54706565, 951924416, 95915435, 5755046, 4922174, 6665791, 2146556 ####[facility] [address] [place] [address] Neutrophils/100 WBC (Bld) 82.0 % High 36.0-75.0 [facility] Comment on above: Order Comment: Order Added by Discern Expert. Performed By: #### 2 852866, 49606047, 0339318, 42789819, 0232839, 24471607, 452402534, 73537968, 7142422, 0414828, 7981435, 0275096 ####[facility] [address] [place] [address] Neutrophils/Leukocytes Auto (Bld) [Pure # fraction] 12.4 E9/L High 2.0-7.5 [facility] Comment on above: Order Comment: Order Added by Discern Expert. Performed By: #### 2 349735, 62095707, 2313191, 43591560, 1163017, 59677748, 967106664, 80228696, 8145882, 1006795, 5213630, 8944377 ####[facility] [address] [place] [address] BMPon 04-12-2023 Creatinine [Mass/Vol] 1.8 mg/dL High 0.5-1.3 [facility] Comment on above: Performed By: #### 2 446422, 12847280, 5290241, 89833479, 8027597, 77371303, 403218191, 06263889, 4719138, 3022218, 0767483, 4294677 ####[facility] [address] [place] [address] Urea nitrogen [Mass/Vol] 39 mg/dL High 5-21 [facility] Comment on above: Performed By: #### 2 459643, 52136731, 5747230, 95022309, 7083852, 29623088, 554504558, 06730344, 8519097, 4216270, 2750746, 3090739 ####[facility] [address] [place] [address] Urea nitrogen/Creatinine [Mass ratio] 22 No Units High 10-20 [facility] Comment on above: Performed By: #### 2 085408, 35125754, 6588822, 33365091, 5918371, 90933725, 572504760, 37527852, 8459793, 2382958, 9543360, 6692207 ####[facility] [address] [place] [address] Anion gap [Moles/Vol] 16 mmol/L Normal 6-16 [facility] Comment on above: Performed By: #### 2 530047, 54098752, 4938637, 69448783, 4963962, 81113675, 648270019, 51825836, 8792947, 8145191, 8022027, 0947106 ####[facility] [address] [place] [address] Calcium [Mass/Vol] 10.0 mg/dL Normal 8.9-11.1 [facility] Comment on above: Performed By: #### 2 060829, 97846779, 5723799, 71584130, 7007228, 23677960, 607758723, 02003330, 0333522, 3886726, 6577539, 8671718 ####[facility] [address] [place] [address] Chloride [Moles/Vol] 109 mmol/L Normal 101-111 [facility] Comment on above: Performed By: #### 2 130926, 64072222, 7753779, 40135418, 2216908, 01770987, 083324201, 72985551, 7245855, 0885580, 4526763, 0016991 ####[facility] [address] [place] [address] CO2 [Moles/Vol] 23 mmol/L Normal 21-31 [facility] Comment on above: Performed By: #### 2 464554, 31599831, 3701021, 48321174, 5889582, 55169492, 272880994, 97861055, 3129618, 6041051, 5511748, 1909400 ####[facility] [address] [place] [address] Glucose [Mass/Vol] 89 mg/dL Normal 55-199 [facility] Comment on above: Result Comment: If t his glucose result represents a fasting glucose, interpretation should refer to the following reference range: 55-99 mg/dL Performed By: #### 2 614443, 36351143, 9603757, 28919286, 2807082, 80956689, 094595651, 55094747, 7281647, 9836408, 8878543, 8051823 ####[facility] [address] [place] [address] Potassium [Moles/Vol] 4.3 mmol/L Normal 3.5-5.3 [facility] Comment on above: Performed By: #### 2 639681, 03163783, 0721940, 70585216, 0808175, 76979666, 036432516, 09389419, 8310273, 8330808, 5833316, 5912762 ####[facility] [address] [place] [address] Sodium [Moles/Vol] 144 mmol/L Normal 135-145 [facility] Comment on above: Performed By: #### 2 484103, 30958598, 3436580, 96476884, 2086131, 96771887, 963464661, 40246252, 0471117, 6367589, 6680364, 8596827 ####[place] [address] [place] [address] CBC w/ Auto Diffon 3 Erythrocyte distribution width (RBC) [Ratio] 15.3 % High 10.9-14.2 [facility] Comment on above: Performed By: #### 2 525233, 60944606, 6577289, 76386161, 6691024, 80080895, 530501575, 34684994, 7522581, 9810955, 0220042, 5008306 ####[place] [address] [place] [address] Hematocrit (Bld) [Volume fraction] 44.4 % Normal 34.0-46.0 [facility] Comment on above: Performed By: #### 2 448803, 44218513, 1545880, 75566748, 0535079, 10256564, 680224859, 92821867, 2711035, 3176189, 5745130, 2095381 ####[place] [address] [place] [address] Hemoglobin (Bld) [Mass/Vol] 14.0 g/dL Normal 12.0-16.0 [facility] Comment on above: Performed By: #### 2 155174, 34241399, 1852776, 11067385, 6312827, 83745482, 587809132, 56871759, 6042302, 0000526, 8175990, 4105612 ####[place] [address] [place] [address] MCH (RBC) [Entitic mass] 28.5 pg Normal 27.0-34.0 [facility] Comment on above: Performed By: #### 2 363511, 55177989, 0321629, 38058018, 8849230, 32021931, 786802823, 93531706, 2318492, 5910513, 5857697, 8936794 ####[facility] [address] [place] [address] MCHC (RBC) [Mass/Vol] 31.6 g/dL Normal 31.4-36.0 [facility] Comment on above: Performed By: #### 2 341306, 54159327, 2513070, 81547114, 0753208, 14145065, 695100949, 51562384, 5087804, 5606969, 7797485, 5112384 ####[place] [address] [place] [address] MCV (RBC) [Entitic vol] 89.9 fL Normal 80.0-100.0 F [facility] Comment on above: Performed By: #### 2 784467, 35951231, 8582455, 99424201, 3472472, 72701431, 575206131, 43499473, 4700010, 7405592, 0395709, 2901042 ####[address] [address] Platelet mean volume (Bld) [Entitic vol] 9.8 fL Normal 6.4-10.8 [facility] Comment on above: Performed By: #### 2 868311, 42279986, 2446568, 37753942, 7828676, 33613299, 983564549, 80602165, 9408298, 8557174, 0468254, 0512925 ####[facility] [address] [place] [address] Platelets (Bld) [#/Vol] 285.0 E9/L Normal 150.0-500.0 [facility] Comment on above: Performed By: #### 2 413628, 17959364, 7945361, 23476904, 4070992, 96171269, 901182076, 95028537, 6491885, 5792039, 4912469, 9660983 ####[place] [address] [place] [address] RBC (Bld) [#/Vol] 4.9 E12/L Normal 4.3-5.9 [facility] Comment on above: Performed By: #### 2 196566, 12340496, 6363540, 75148805, 2563593, 39580845, 713180163, 76202137, 7018222, 9823434, 5964942, 6893848 ####[facility] [address] [place] [address] WBC corrected for nucl RBC Auto (Bld) [#/Vol] 15.1 E9/L High 4.0-11.0 [facility] Comment on above: Performed By: #### 2 561521, 56475320, 9951417, 28274098, 2770016, 47670892, 946267678, 82208131, 9951387, 0423493, 9516130, 5835790 ####[facility] [address] [place] [address] CHEMISTRYOrdered By: SYSTEM SYSTEM on 04-12-2023 Amphetamines [...] 0.52 m[IU]/L Normal 0.34 - 5.60 mcIU/mL [facility] Remisol Urea nitrogen [Mass/Vol] 39 mg/dL High 5 - 21 mg/dL [facility] Remisol Urea nitrogen/Creatinine [Mass ratio] 22 mg/mg High 10 - 20 [facility] Remisol CHEMISTRYOrdered By: Shauna kendall on 04-12-2023 HbA1c (Bld) [Mass fraction] 5.9 % Normal <=5.9% [facility] ChemAutoSS CHEMISTRYOrdered By: Crystal ROP User on 04-12-2023 Glucose [Mass/Vol] 88 mg/dL Normal 55 - 99 mg/dL [facility] POC Subsection Comment on above: Result Comment: Jose matos RN/ POC Username [place]ETH [place] Invalid Interpretation Code [facility] POC Subsection Sodium [Moles/Vol] 568210343356 mmol/L Invalid Interpretation Code [facility] POC Subsection Sodium [Moles/Vol] 662620126 mmol/L Invalid Interpretation Code [facility] POC Subsection COAGULATIONOrdered By: Myra Grayosn on 04-12-2023 aPTT Coag (PPP) [Time] 29.5 s Normal 25.1 - 36.5 second(s) [facility] Auto Coag Comment on above: Interpretive [...] the same coagulation reagent and instrumentation as [facility]. Currently there are no coagulation studies available worldwide for children to 14 days, and no normal ranges. Heparin therapeutic range (represented by Anti-Factor Xa activity of 0.2 - 0.4 U/mL) corresponds to PTT of 56.6 - 109.0 sec. INR Coag (PPP) [Relative time] 0.9 {INR} Invalid Interpretation Code [facility] Auto Coag Comment on above: Interpretive Data: I NR results are specifically intended to assess patients stabilized on long-term Anticoagulation therapy suggested INR s Less Intensive Anticoagulation 2.0 3.0 Conventional Range 3.0 4.5 PT Coag (PPP) [Time] 10.4 s Normal 9.4 - 1 2.5 second(s) [facility] Auto Coag Comment on above: Interpretive [...] the same coagulation reagent and instrumentation as [facility]. Currently there are no coagulation studies available worldwide for children to 14 days, and no normal ranges. CT Head or Brain w/o Contras [facility] 04-12-2023 CT Head or Brain w/o Contrast [...] MD Transcribed by: LESLEY Technologist: SOFIA Normal [facility] CT Spine Cervical w/o Contra ston [...] MD Transcribed by: LESLEY Technologist: SOFIA [facility] Capillary Glucose POCon 03-16 Glucose [Mass/Vol] 88 mg/dL Normal 55-99 [facility] Comment on above: Result Comment: Jose matos RN/ Performed By: #### 2 07552757 #### [facility] [address] [place] [address] Consent for Treatmenton 03-163 Consent for Treatment [id number] #1.00TIFF [facility] ED Clinical Summaryon 2022 ED Clinical Summary [place] [id number] ED Clinical Summary Person Information Name: AARON JJ [place] Age: 78 Years : 1945 Sex: Female Language: Macedonian PCP: JEREMIAH REED MD Marital Status: Visit Id: Visit Reason: Altered mental status; AMS Speciality: Acuity: 2 Enc Type: Observation Med Service: Emergency Arrival: 04/12/2023 12:15:14 Discharge: LOS: 000 04:45 Checkin: 04/12/2023 12:15:14 Checkout: 04/12/2023 17:00:36 Dispo Type: Admitted as IP to this [facility] EVENTS: Event Name Event Status Request Date/Time [...] Labs Collected 04/12/2023 16:57:50 04/12/2023 16:57:50 [facility] [place] [id number] PHYS DOC NOTES: MEDICAL INFORMATION: Prescriptions Given: [...] vein thrombosis (DVT) prophylaxis; Depression, unspecified [facility] ED Note-Physicianon 04-12-20 ED Note-Physician Basic Information Time Seen: Abran [...] had a urinary tract infection diagnosed at [facility] for which she is on antibiotics. She [...] deep vein thrombosis (DVT) prophylaxis (Z79.899: Other intermediate manager (current) drug therapy) Depression, unspecified (F32.A: [...] 500 mL 500 mL, 500 mL, IV [id number] units/mLInjection [F], 5000 unit(s), SubCutaneous oxym0.05Spr [F], [...] of uret (more content not included)... [facility] Comment on above: Result Comment: Elec tronically Signed By: Abran Holguin DO\.br\Date and Time Signed: 04/12/23 22:13 EST ED Patient Education Noteon 04-12-2023 ED Patient Education Note [facility] ED Patient Summaryon 023 ED Patient Summary [address] [address] Patient Discharge Instructions Person Information Name: AARON JJ Age: 78 Years Arrival Date: 04/12/2023 12:15:14 Discharge Diagnosis: 1:AMS (altered mental status); 2:Elevated serum creatinine; 3:HTN (hypertension); 4:Anxiety and depression; 5:Peripheral neuropathy; 6:Chronic GERD; 7:OAB (overactive bladder); 8:Obesity; 9:On deep vein thrombosis (DVT) prophylaxis; Depression, unspecified Primary Care Physician: JEREMIAH REED MD Provider Information Primary Provider: Abran Holguin DO Advanced Airplane Pilot Supervisor:None The exam and treatment you received in the Emergency Department were for an urgent problem and are not intended as complete care. It is important that you follow up with a doctor, nurse practitioner, or physician?s cafeteria assistant for ongoing care. If your symptoms [...] opioids can be used to help relieve zoawqdax-jy-tykeyw pain and are often prescribed following a [...] be struggling with addiction, tell your health critical care nurse practitioner and ask for guidance or (more content not included)... [facility] Ethanolon 04-12-2023 Ethanol [Mass/Vol] mg/dL Normal <=7 [facility] Comment on above: Performed By: #### 2 590853 #### [facility] [address] [place] [address] Folateon 04-12-2023 Folate [Mass/Vol] ng/mL Normal >=6.7 [facility] Comment on above: Performed By: #### 2 761683 #### [facility] [address] [place] [address] HEMATOLOGYOrdered By: SYSTEM SYSTEM on 04-12-2023 Basophils/100 [...] 89.9 fL Normal 80.0 - 100.0 fL FT HemeAutoSS Platelet mean volume (Bld) [Entitic vol] 9.8 fL Normal 6.4 - 10.8 fL FT HemeAutoSS Platelets (Bld) [#/Vol] 285.0 E9/L Normal 150. 0 - 500.0 E9/L FT HemeAutoSS RBC (Bld) [#/Vol] 4.9 E12/L Normal 4.3 - 5.9 E12/L FT HemeAutoSS WBC corrected for nucl RBC Auto (Bld) [#/Vol] 15.1 E9/L High 4.0 - 11.0 E9/L FT HemeAutoSS Hep Func Panelon 04-12-2023 Albumin [Mass/Vol] 4.4 g/dL Normal 3.3-5.0 [facility] Comment on above: Performed By: #### 2 913716, 51431058, 4906360, 95264975, 2328629, 55935372, 242742312, 49980424, 9207924, 0634939, 0820261, 4309056 ####[facility] [address] [place] [address] Albumin/Globulin (S) [Mass conc ratio] 1.3 Normal 1.1-2.2 [facility] Comment on above: Performed By: #### 2 272092, 06338953, 0877394, 48799662, 3405022, 72455196, 110040355, 71031731, 2665372, 4015560, 2001188, 2746128 ####[facility] [address] [place] [address] ALP [Catalytic activity/Vol] 78 Int._Unit/L Normal 21-98 [facility] Comment on above: Performed By: #### 2 959394, 85179601, 4455349, 07260905, 7282315, 24878628, 038178807, 72263160, 4686210, 0989351, 2235110, 4555498 ####[facility] [address] [place] 9326057 ALT No additional P-5'-P [Catalytic activity/Vol] 22 Int._Unit/L Normal 6-46 [facility] Comment on above: Performed By: #### 2 778290, 07450531, 2563915, 22232700, 2277197, 32429930, 900168702, 99877335, 5186063, 3618763, 9432626, 9738223 ####[facility] [address] [place] [id number] AST [Catalytic activity/Vol] 25 Int._Unit/L Normal 5-43 [facility] Comment on above: Performed By: #### 2 016645, 28282046, 5260810, 32121615, 8115561, 10475094, 475515177, 09993189, 3172921, 1487107, 4970648, 2896693 ####[facility] [address] [place] [address] Bilirubin [Mass/Vol] 0.7 mg/dL Normal 0.0-1.1 [facility] Comment on above: Performed By: #### 2 790595, 04588757, 0983075, 10299965, 0428438, 84826309, 529175622, 47481488, 1709347, 5311168, 1957639, 8504138 ####[facility] [address] [place] [address]60[address] Bilirubin.direct [Mass/Vol] 0.1 mg/dL Normal 0.1-0.4 [facility] Comment on above: Performed By: #### 2 797409, 80213628, 6947593, 25741896, 7007834, 31458276, 343171192, 44380535, 9939575, 8154878, 2837787, 0027127 ####[facility] [address] [place] [address] Bilirubin.indirect [Mass or moles/Vol] 0.6 mg/dL Normal 0.1-0.9 [facility] Comment on above: Performed By: #### 2 050118, 39309508, 9535953, 54627221, 7774605, 20976118, 068353279, 79852603, 6737600, 1842118, 8461240, 1600902 ####[facility] [address] [place] [address] Globulin (S) [Mass/Vol] 3.3 g/dL Normal 1.4-4.0 [facility] Comment on above: Performed By: #### 2 420730, 30024511, 3328734, 26040726, 2307987, 44866362, 235067608, 62646146, 9886598, 0659142, 2900600, 5321458 ####[facility] [address] [place] [address] Protein [Mass/Vol] 7.7 g/dL Normal 6.0-7.8 [facility] Comment on above: Performed By: #### 2 880014, 36196317, 5488370, 31197383, 0014832, 73137836, 528924077, 71958186, 1171233, 3753358, 2733242, 3092802 ####[facility] [address] [place] [address] JjrU7vux 04-12-2023 HbA1c (Bld) [Mass fraction] 5.9 % Normal <=5.9 [facility] Comment on above: Performed By: #### 2 761522 #### [facility] [address] [place] [address] Magnesiumon 04-12-2023 Magnesium [Mass/Vol] 2.0 mg/dL Normal 1.3-2.4 [facility] Comment on above: Performed By: #### 2 409420 #### [facility] [address] [place] [address] Monitor Recordon 04-12-2023 Monitor Record [id number] 0#1.00TIFF Normal [facility] Monitor Record [id number] 24#1.00TIFF Normal [facility] PT & PTTon 04-12-2023 aPTT Coag (PPP) [Time] 29.5 second(s) Normal 25.1-36.5 [facility] Comment on above: Result Comment: Para [...] the same coagulation reagent and instrumentation as [facility]. Currently there are no coagulation studies available worldwide for children to 14 days, and no normal ranges. Heparin therapeutic range (represented by Anti-Factor Xa activity of 0.2 - 0.4 U/mL) corresponds to PTT of 56.6 - 109.0 sec. Performed By: #### 2 627153, 98299858, 9779489, 87455184, 2651797, 32274550, 612922175, 58767682, 6743866, 6921317, 7282513, 6677332 ####[facility] [address] [place] [address] INR Coag (PPP) [Relative time] 0.9 {INR} Invalid Interpretation Code [facility] Comment on above: Result Comment: INR results are specifically intended to assess patients stabilized on long-term Anticoagulation therapy suggested INR?s ?Less Intensive Anticoagulation? 2.0 ? 3.0 Conventional Range 3.0 ? 4.5 Performed By: #### 2 704900, 09072948, 5728598, 18364122, 7921905, 56615124, 541353414, 18528750, 8711612, 1918404, 4934540, 0642078 ####[facility] [address] [place] [address] PT Coag (PPP) [Time] 10.4 second(s) Normal 9.4-12.5 [facility] Comment on above: Result Comment: 15 [...] the same coagulation reagent and instrumentation as [facility]. Currently there are no coagulation studies available worldwide for children to 14 days, and no normal ranges. Performed By: #### 2 986778, 60666441, 3207940, 85880426, 4315486, 13343761, 248809567, 85038428, 8131490, 9127022, 8602657, 5231046 ####[facility] [address] [place] [address] Pre-Arrival Noteon 3 Pre-Arrival Note Pre-Arrival Summary Name: , Current Date: 04/12/2023 12:18:15 EST Gender: Female Date of : Age: 88 Pre-Arrival Type: EMS ETA: 04/12/2023 12:29:00 EST Primary Care Physician: Presenting Problem: altered mental status Pre-Arrival User: Paul ALVARES, Brenda Talbert Referring Source: Location: Completion Date/Time: 04/12/2023 11:59:00 [facility] Emergency Department Pre-Hospital Report Form Vital Signs: Pre-Hospital Report: Treatment in Route: Response to Treatment: Misc. Issues: Normal [facility] RAD - MRI Screening Formon 1 06-12-2022 RAD - MRI Screening Form [id number] 7#1.00TIFF Normal [facility] TSH With T4fr Reflexon 04-12 TSH Qn 0.52 m[IU]/L Normal 0.34-5.60 [facility] Comment on above: Performed By: #### 2 919348 #### [facility] [address] [place] [address] Troponin 0 Hr.on 04-12-2023 Troponin I.cardiac [Mass/Vol] 11.90 pg/mL Normal 10.10-27.10 [facility] Comment on above: Order Comment: per gunjan LINTON RN is drawing labs and sending [id number] 04/12/2023 12:26:28 EST Result Comment: The 95% CI (Confidence Interval) PPV (Positive Predictive Value) for myocardial infarction in females is 38 pg/mL, in males 51 pg/mL. The results should be used in conjunction with clinical conditions of myocardial infarction. (Access High Sensitivity Troponin I Instructions For Use, [employer], December 2017) Performed By: #### 2 557541, 76145122, 3050752, 03703612, 6902175, 48982780, 352652969, 94040857, 7948436, 7717838, 4476784, 6737765 ####[facility] [address] [place] [address] U Drug Screenon 04-12-2023 Benzodiazepines Ql (U) Positive Abnormal Negative [facility] Comment on above: Result Comment: Crit ical Result UD_BENZ:POS Called to ABRAN HOLGUIN AT ER by URSULA LOZANO And Read Back For Confirmation at: 04/12/2023 15:35:32\Unconfirmed by alternate method\Results verified by repeat analysis\No confirmation requested by Physican Negative Cutoff: <200 ng/mL Performed By: #### 2 611646 #### [facility] [address] [place] [address] Amphetamines Screen method >1000 ng/mL Ql (U) Negative Normal Negative [facility] Comment on above: Result Comment: Nega tive Cutoff: <1000 ng/mL Performed By: #### 2 615688 #### [facility] [address] [place] [address] Barbiturates Screen Ql (U) Negative Normal Negative [facility] Comment on above: Result Comment: Nega tive Cutoff: <200 ng/mL Performed By: #### 2 475837 #### [facility] [address] [place] [address] Cocaine Ql (U) Negative Normal Negative [facility] Comment on above: Result Comment: Nega tive Cutoff: <300 ng/mL Performed By: #### 2 527680 #### [facility] [address] [place] [address] Opiates Screen Ql (U) Negative Normal Negative [facility] Comment on above: Result Comment: Nega tive Cutoff: <300 ng/mL Performed By: #### 2 607108 #### [facility] [address] [place] [address] Phencyclidine Screen method >25 ng/mL Ql (U) Negative Normal Negative [facility] Comment on above: Result Comment: Nega tive Cutoff: <25 ng/mL These drug screen results are to be used for medical (i.e., treatment) purposes only. Unconfirmed drug screening results must not be used for non-medical purposes (e.g., employment testing, legal testing). Performed By: #### 2 746738 #### [facility] [address] [place] [address] Tetrahydrocannabinol Screen method >50 ng/mL Ql (U) Negative Normal Negative [facility] Comment on above: Result Comment: Nega tive Cutoff: <50 ng/mL Performed By: #### 2 872266 #### [facility] [address] [place] [address] UA With Cult Reflexon 2022 Bacteria LM Ql (Urine sed) TRACE Normal Trace [facility] Comment on above: Performed By: #### 1 6423393 #### [facility] [address] [place] [address] Bilirubin Ql (U) Negative Normal Negative [facility] Comment on above: Performed By: #### 1 4354439 #### [facility] [address] [place] [address] Clarity (U) CLEAR Normal Clear [facility] Comment on above: Performed By: #### 1 8420395 #### [facility] [address] [place] [address] Color (U) YELLOW Normal Yellow [facility] Comment on above: Performed By: #### 1 3948776 #### [facility] [address] [place] [address] Epithelial cells.squamous LM.HPF (Urine sed) [#/Area] 0-2 Normal 0-2 [facility] Comment on above: Performed By: #### 1 3344888 #### [facility] [address] [place] [address] Glucose Test strip (U) [Mass/Vol] Negative Normal Negative [facility] Comment on above: Performed By: #### 1 8224504 #### [facility] [address] [place] [address] Hemoglobin Ql (U) Negative Normal Negative [facility] Comment on above: Performed By: #### 1 8804638 #### [facility] [address] [place] [address] Ketones (U) [Mass/Vol] TRACE Abnormal Negative Fi [facility] Comment on above: Performed By: #### 1 2879858 #### [facility] [address] [place] [address] [place].plasma/[place]. RBC (Bld) [Mass ratio] 0-3 Normal 0-3 [facility] Comment on above: Performed By: #### 1 6426503 #### [facility] [address] [place] [address] Mucus Ql (Urine sed) TRACE Normal [facility] Comment on above: Performed By: #### 1 7531595 #### [facility] [address] [place] [address] Nitrite Ql (U) Negative Normal Negative [facility] Comment on above: Performed By: #### 1 4363359 #### [facility] [address] [place] [address] pH (U) 5.0 [pH] Invalid Interpretation Code 5.0-9.0 [facility] Comment on above: Performed By: #### 1 2420948 #### [facility] [address] [place] [address] Protein (U) [Mass/Vol] TRACE Abnormal Negative [facility] Comment on above: Performed By: #### 1 2761745 #### [facility] [address] [place] [address] Specific gravity (U) [Rel density] >=1.030 Invalid Interpretation Code 1.005-1.030 [facility] Comment on above: Performed By: #### 1 9402094 #### [facility] [address] [place] [address] Type of Urine collection method Catheter Normal [facility] Comment on above: Performed By: #### 1 2893992 #### [facility] [address] [place] [address] Urobilinogen Qn (U) 0.2 {Nevaeh'U}/dL Normal 0.0-1.0 [facility] Comment on above: Performed By: #### 1 4024752 #### [facility] [address] [place] [address] WBC Auto Ql (U) Negative Normal Negative [facility] Comment on above: Performed By: #### 1 8258571 #### [facility] [address] [place] [address] WBC casts LM.LPF (Urine sed) [#/Area] 0-3 Normal [facility] Comment on above: Performed By: #### 1 0302512 #### [facility] [address] [place] [address] WBC LM.HPF (Urine sed) [#/Area] 0-5 Normal 0-5 [facility] Comment on above: Performed By: #### 1 3745582 #### [facility] [address] [place] [address] URINALYSISOrdered By: Bonny Workman on 04-12-2023 Bacteria [...] Interpretation Code Negative [facility] UA Auto SS [place].plasma/[place]. RBC (Bld) [Mass ratio] 0-3 /HPF Normal [...] PM) Invalid Interpretation Code 1.005 - 1.030 [facility] UA Auto SS UA Spec Desc Catheter (04/12/23 2:32 PM) Normal [facility] UA Auto SS Urobilinogen Qn (U) 0.0066728 {Nevaeh'U}/dL Normal 0.0 - 1.0 EU/dL [facility] UA Auto SS WBC Auto Ql (U) Negative (04/12/23 2:32 PM) Normal Negative [facility] UA Auto SS WBC casts LM.LPF (Urine sed) [#/Area] 0-3 (04/12/23 2:32 PM) Normal [facility] UA Auto SS WBC LM.HPF (Urine sed) [#/Area] 0-5 /HPF Normal 0-5/HPF [facility] UA Auto SS Vit B12on 04-12-2023 Cobalamin (Vitamin B12) [Mass/Vol] 1018 pg/mL Normal 50-1500 [facility] Comment on above: Performed By: #### 2 110657 #### [facility] [address] [place] [address] XR Chest Single Viewon 04-12 XR Chest [...] mGy = na DAP = na Normal [facility] eGFRon 04-12-2023 GFR/1.73 sq M.predicted among non-blacks MDRD (S/P/Bld) [Vol rate/Area] 29 mL/min/1.73 m2 Low >=59 [facility] Comment on above: Order Comment: Order added by Discern Expert. Result Comment: Property Coordinator sally kidney disease could be indicated at eGFR's of less than 60 mL/min/1.73m2. Kidney failure is indicated at less than 15 mL/min/1.73m2. Performed By: #### 2 010508, 44924691, 1382500, 48162463, 6421010, 45810297, 432264484, 45790238, 8303551, 7912475, 6271338, 0194808 ####[facility] [address] [place] [address] XR CSPINE OBL FLEX_EXTon XR CSPINE OBL [...] by: Serena OSORIO Date: 2022-09-02 00:37 Normal [facility] MRI SHOULDER RT WO CONon MRI SHOULDER [...] by: EHSAN MILLER Date: 2022-08-22 09:25 Normal [facility] XR SHOULDER RT 2V or >on XR [...] by: BRENT MALDONADO Date: 2022-08-10 22:45 Normal [facility] CT CHEST WO CONon 06-12-2022 CT CHEST [...] EHSAN MILLER Date: 2022-06-12 16:56 Normal [facility] VIT D 1 25 DIHYDROXYon 04-24 Calcitriol(1,25 di-OH Vit D) 91.0 pg/mL Critically high 24.8-81.5 [facility] Comment on above: Performed By: #### V [id number] #### [facility] [address] [place] [address] Dr. Helio Cee CULTURE URINEon 04-23-2022 CULTURE [...] Trimethoprim/Sulfame thoxazole <=20 S F Normal [facility] Comment on above: Performed By: #### U RCX #### [facility] [address] [place] [address] Dr. Helio Cee CBC AUTO DIFFon 04-21-2022 BASO # 0.0 103/ul Normal 0.0-0.1 [facility] Comment on above: Performed By: #### E RUR #### [facility] [address] [place] [address] Dr. Helio Cee Basophils/100 WBC (Bld) 0.4 % Normal 0.2-2.0 [facility] Comment on above: Performed By: #### E RUR #### [facility] [address] [place] [address] Dr. Helio Cee EO # 0.4 103/ul Normal 0.0-0.7 [facility] Comment on above: Performed By: #### E RUR #### [facility] [address] [place] [address] Dr. Helio Cee Eosinophils/100 WBC (Bld) 4.0 % Normal 0.9-7.0 [facility] Comment on above: Performed By: #### E RUR #### [facility] [address] [place] [address] Dr. Helio Cee Erythrocyte distribution width (RBC) [Ratio] 15.2 % Critically high 11.0-15.0 [facility] Comment on above: Performed By: #### E RUR #### [facility] [address] [place] [address] Dr. Helio Cee Hematocrit (Bld) [Volume fraction] 41.0 % Normal 36.0-48.0 [facility] Comment on above: Performed By: #### E RUR #### [facility] [address] [place] [address] Dr. Helio Cee Hemoglobin (Bld) [Mass/Vol] 12.9 g/dL Normal 12.0-16.0 [facility] Comment on above: Performed By: #### E RUR #### [facility] [address] [place] [address] Dr. Helio Cee IG # 0.04 10e3/ul Critically high 0.00-0.03 [facility] Comment on above: Performed By: #### E RUR #### [facility] [address] [place] [address] Dr. Helio Cee IG % 0.4 % Normal 0.0-0.5 [facility] Comment on above: Performed By: #### E RUR #### [facility] [address] [place] [address] [address] Helio Cee LYMPH # 1.1 103/ul Critically low 1.2-3.8 [facility] Comment on above: Performed By: #### E RUR #### [facility] [address] [place] [address] Dr. Helio Cee Lymphocytes/100 WBC (Bld) 11.9 % Critically low 20.5-60.0 [facility] Comment on above: Performed By: #### E RUR #### [facility] [address] [place] [address] Dr. Helio Cee MANUAL DIFF REQ NO Normal [facility] [place] Comment on above: Performed By: #### E RUR #### [facility] [address] [place] [address] Dr. Helio Cee MCH (RBC) [Entitic mass] 29.0 pg Normal 26.7-34.0 [facility] Comment on above: Performed By: #### E RUR #### [facility] [address] [place] [address] Dr. Helio Cee MCHC (RBC) [Mass/Vol] 31.5 g/dL Normal 29.9-35.2 [facility] Comment on above: Performed By: #### E RUR #### [facility] [address] [place] [address] Dr. Helio Cee MCV (RBC) [Entitic vol] 92.1 fL Normal 81.0-99.0 [facility] Comment on above: Performed By: #### E RUR #### [facility] [address] [place] [address] Dr. Helio Cee MONO # 0.4 103/ul Normal 0.3-0.8 [facility] Comment on above: Performed By: #### E RUR #### [facility] [address] [place] [address] Dr. Helio Cee Monocytes/100 WBC (Bld) 4.4 % Normal 1.7-12.0 [facility] Comment on above: Performed By: #### E RUR #### [facility] [address] [place] [address] Dr. Helio Cee NEUT # 7.3 103/ul Critically high 1.4-6.5 [facility] [place] Comment on above: Performed By: #### E RUR #### [facility] [address] [place] [address] Dr. Helio Cee Neutrophils/100 WBC (Bld) 78.9 % Critically high 43.0-75.0 [facility] Comment on above: Performed By: #### E RUR #### [facility] [address] [place] [address] Dr. Helio Cee Platelet mean volume (Bld) [Entitic vol] 10.6 fL Normal 9.5-13.5 [facility] Comment on above: Performed By: #### E RUR #### [facility] [address] [place] [address] Dr. Helio Cee PLT 269 103/ul Normal 150-450 [facility] Comment on above: Performed By: #### E RUR #### [facility] [address] [place] [address] Dr. Helio Cee RBC 4.45 106/ul Normal 4.20-5.40 [facility] Comment on above: Performed By: #### E RUR #### [facility] [address] [place] [address] Dr. Helio Cee WBC 9.2 103/ul Normal 4.0-11.0 [facility] Comment on above: Performed By: #### E RUR #### [facility] [address] [place] [address] Dr. Helio Cee LIPID PROFILEon 04-21-2022 CHOL-HDL RATIO NORM SEE BELOW Normal [facility] Comment on above: Result Comment: 3.3 - 4.4 LOW RISK 4.4 - 7.1 AVERAGE RISK 7.1 - 11.0 MODERATE RISK >11.0 HIGH RISK Performed By: #### T SH, LIPID, CMP ####[facility] [address] [place], [place] [address]We. Helio Cee Cholesterol [Mass/Vol] 146 mg/dL Normal <=200 Th [facility] Comment on above: Performed By: #### T SH, LIPID, CMP ####[facility] [address] [place], [place] [address]Nq. Helio Cee Cholesterol in HDL [Mass/Vol] 63 mg/dL Critically high 40-60 [facility] Comment on above: Performed By: #### T SH, LIPID, CMP ####[facility] [address] [place], [place] [address]Jv. Helio Cee Cholesterol in LDL [Mass/Vol] 66.6 mg/dL Normal [facility] Comment on above: Performed By: #### T CAITLIN, LIPID, CMP ####[facility] [address] [place] [id number]. Helio Cee Cholesterol.total/Lisa sterol in HDL [Mass ratio] 2.3 {ratio} Normal [facility] Comment on above: Performed By: #### T SH, LIPID, CMP ####[facility] [address] [place] [id number]. Claudettelan Cee HDL NORMAL > or = 60 mg/dl - LOW CARDIOVASCULAR RISK <40 mg/dl - HIGH CARDIOVASCULAR RISK Normal [facility] Comment on above: Performed By: #### T SH, LIPID, CMP ####[facility] [address] [place] [id number]. Helio Cee LDL CALC NORMAL SEE BELOW Normal [facility] [place] Comment on above: Result Comment: <100 mg/dl OPTIMAL 100 - 129 mg/dl NEAR OR ABOVE OPTIMAL 130 - 159 mg/dl BORDERLINE HIGH 160 - 189 mg/dl HIGH >190 mg/dl VERY HIGH Performed By: #### T SH, LIPID, CMP ####[facility] [address] [place] [id number]. Helio Cee Triglyceride [Mass/Vol] 82 mg/dL Normal <=150 [facility] Comment on above: Performed By: #### T SH, LIPID, CMP ####[facility] [address] [place] [id number]. Helio Cee VLDL CALC 16.4 mg/dL Normal [facility] Comment on above: Performed By: #### T CAITLIN LIPID, CMP ####[facility] [address] [place] [address]Dr. Helio Cee PROF 14(COMP METB)on 022 Albumin [Mass/Vol] 3.5 g/dL Normal 3.4-5.0 [facility] Comment on above: Performed By: #### T CAITLIN, LIPID, CMP ####[facility] [address] [place] [address]Dr. Helio Cee Albumin/Globulin [Mass ratio] 1.0 {ratio} Normal [facility] Comment on above: Performed By: #### T CAITLIN LIPID, CMP ####[facility] [address] [place] [address]Dr. Helio Cee ALP [Catalytic activity/Vol] 98 U/L Normal 46-116 [facility] Comment on above: Performed By: #### T CAITLIN, LIPID, CMP ####[facility] [address] [place] [address]Dr. Helio Cee ALT [Catalytic activity/Vol] 23 U/L Normal 14-59 [facility] Comment on above: Performed By: #### T CAITLIN LIPID, CMP ####[facility] [address] [place] [address]Dr. Helio Cee Anion gap [Moles/Vol] 12.2 mmol/L Normal [facility] Comment on above: Performed By: #### T CAITLIN, LIPID, CMP ####[facility] [address] [place] [address]Dr. Helio Cee AST [Catalytic activity/Vol] 15 U/L Normal 15-37 [facility] Comment on above: Performed By: #### T CAITLIN, LIPID, CMP ####[facility] [address] [place] [address]Dr. Helio Cee Bilirubin [Mass/Vol] 0.5 mg/dL Normal 0.2-1.0 [facility] Comment on above: Performed By: #### T CAITLIN, LIPID, CMP ####[facility] [address] [place] [address]Dr. Helio Cee Calcium [Mass/Vol] 9.0 mg/dL Normal 8.5-10.1 [facility] Comment on above: Performed By: #### T SH, LIPID, CMP ####[facility] [address] [place] [address]Dr. Helio Cee Chloride [Moles/Vol] 109 mmol/L Critically high 98-107 [facility] Comment on above: Performed By: #### T SH, LIPID, CMP ####[facility] [address] [place], [place] [address]Dr. Helio Cee CO2 [Moles/Vol] 26.5 mmol/L Normal 21.0-32.0 [facility] Comment on above: Performed By: #### T SH, LIPID, CMP ####[facility] [address] [place], [place] [address]Dr. Claudettemagan Cee Creatinine [Mass/Vol] 1.22 mg/dL Critically high 0.55-1.02 [facility] Comment on above: Performed By: #### T SH, LIPID, CMP ####[facility] [address] [place], [place] [address]Dr. Helio Cee EGFR-AF BELARUSIAN 52 mL/min/1.73m2 Critically low >=60 [facility] Comment on above: Performed By: #### T SH, LIPID, CMP ####[facility] [address] [place], [place] [address]Dr. Helio Coleman EGFR-NON AF BELARUSIAN 43 mL/min/1.73m2 Critically low >=60 [facility] Comment on above: Performed By: #### T SH, LIPID, CMP ####[facility] [address] [place], [place] [address]Dr. Helio Cee Globulin (S) [Mass/Vol] 3.4 g/dL Normal [facility] Comment on above: Performed By: #### T SH, LIPID, CMP ####[facility] Ek[address] [place], [place] [address]Dr. Helio Cee Glucose [Mass/Vol] 103 mg/dL Normal 74-106 [facility] Comment on above: Performed By: #### T CAITLIN LIPID, CMP ####[facility] [address] [place] [address]Dr. Helio Cee Potassium [Moles/Vol] 4.7 mmol/L Normal 3.5-5.1 [facility] Comment on above: Performed By: #### T CAITLIN LIPID, CMP ####[facility] [address] [place] [address]Dr. Helio Cee Protein [Mass/Vol] 6.9 g/dL Normal 6.4-8.2 [facility] [place] [facility] Comment on above: Performed By: #### T CAITLIN LIPID, CMP ####[facility] [address] [place] [address]Dr. Helio Cee Sodium [Moles/Vol] 143 mmol/L Normal 136-145 [facility] [place] [facility] Comment on above: Performed By: #### T CAITLIN LIPID, CMP ####[facility] [address] [place] [address]Dr. Helio Coleman Urea nitrogen [Mass/Vol] 22.0 mg/dL Critically high 7.0-18.0 [facility] Comment on above: Performed By: #### T CAITLIN LIPID, CMP ####[facility] [address] [place] [address]Dr. Claudettemagan eCe Urea nitrogen/Creatinine [Mass ratio] 18.0 mg/mg Normal [facility] Comment on above: Performed By: #### T CAITLIN, LIPID, CMP ####[facility] [address] [place] [id number]. Helio Cee TSHon 04-21-2022 TSH 0.592 uIU/mL Normal 0.358-3.740 [facility] Comment on above: Performed By: #### T CAITLIN, LIPID, CMP ####[facility] [address] [place] [address]Dr. Helio Cee UA RANDOM W/MICROSCOPICon BACTERIA NONE SEEN Normal NONE SEEN [facility] Comment on above: Performed By: #### U AMIC ####[facility] [address] [place] [address]Dr. Helio Cee Bilirubin Ql (U) Negative Normal NEGATIVE [facility] Comment on above: Performed By: #### U AMIC ####[facility] [address] [place] [address]Dr. Helio Cee CAST NONE SEEN Normal NONE SEEN [facility] Comment on above: Performed By: #### U AMIC ####[facility] [address] [place] [address]Dr. Helio Cee Clarity (U) CLEAR Normal CLEAR [facility] Comment on above: Performed By: #### U AMIC ####[facility] [address] [place], [place] [address]Dr. Helio Cee Color (U) DK. YELLOW Normal YELLOW [facility] Comment on above: Performed By: #### U AMIC ####[facility] [address] [place], [place] [address]Dr. Helio Cee Crystals LM Nom (Urine sed) NONE SEEN Normal NONE SEEN [facility] Comment on above: Performed By: #### U AMIC ####[facility] [address] [place], [place] [address]Dr. Helio eCe Epithelial cells LM Ql (Urine sed) RARE Normal NONE SEEN /RARE [facility] Comment on above: Performed By: #### U AMIC ####[facility] [address] [place], [place] [address]Dr. Helio Cee Glucose Ql (U) Negative Normal NEGATIVE [facility] Comment on above: Performed By: #### U AMIC ####[facility] [address] [place], [place] [address]Dr. Helio Cee Hemoglobin Ql (U) Negative Normal NEGATIVE [facility] Comment on above: Performed By: #### U AMIC ####[facility] [address] [place], [place] [address]Dr. Helio Cee Ketones Ql (U) Negative Normal NEGATIVE [facility] Comment on above: Performed By: #### U AMIC ####[facility] [address] [place] [address]Dr. Helio Cee LEUKOCYTES Negative Normal NEGATIVE [facility] Comment on above: Performed By: #### U AMIC ####[facility] [address] [place] [address]Dr. Helio Cee MUCOUS TRACE Abnormal NONE SEEN [facility] Comment on above: Performed By: #### U AMIC ####[facility] [address] [place] [address]Dr. Helio Cee Nitrite Ql (U) Negative Normal NEGATIVE [facility] Comment on above: Performed By: #### U AMIC ####[facility] E[address] [place], [place] [address]Dr. Helio Cee pH (U) 5.5 [pH] Normal 5-9 [facility] Comment on above: Performed By: #### U AMIC ####[facility] [address] [place], [place] [address]Dr. Helio Cee RBC 0-2 Normal 0-2 [facility] Comment on above: Performed By: #### U AMIC ####[facility] [address] [place], [place] [address]Dr. Helio Cee SPEC GRAVITY >=1.030 Abnormal 1.005-<=1.02 5 [facility] Comment on above: Performed By: #### U AMIC ####[facility] [address] [place], [place] [address]Dr. Helio Cee UA PROTEIN TRACE Normal NEGATIVE/ TRACE [facility] Comment on above: Performed By: #### U AMIC ####[facility] [address] [place], [place] [address]Dr. Helio Cee Urobilinogen Qn (U) 1.0 {Nevaeh'U}/dL Normal 0.2 - 1. 0 [facility] Comment on above: Performed By: #### U AMIC ####[facility] [address] [place], [place] [address]Dr. Helio Cee WBC NONE SEEN Normal NONE SEEN [facility] Comment on above: Performed By: #### U AMIC ####[facility] [address] [place], [place] [address]U[address] Hel[address] Cee CT CHEST WO CONon 02-22-2022 [...] EHSAN MILLER Date: 2022-02-22 16:51 Normal [facility] HEMOGLOBINon 02-22-2022 Hemoglobin (Bld) [Mass/Vol] 13.6 g/dL Normal 12.0-16.0 [facility] Comment on above: Performed By: #### V [id number] #### [facility] [address] [place], [place] [address] Dr. Helio Cee XR TIB_FIB RT 2Von [...] by: BRENT LONG Date: 2022-01-07 21:52 Normal [facility] BNPon 11-22-2021 Natriuretic peptide B (Bld) [Mass/Vol] 1469.0 pg/mL Critically high <=900.0 [facility] Comment on above: Performed By: #### C VDTB #### [facility] [address] [place] [address] Dr. Helio Cee CBC AUTO DIFFon 11-22-2021 BASO # 0.1 103/ul Normal 0.0-0.1 [facility] Comment on above: Performed By: #### E RUR #### [facility] [address] [place] [address] Dr. Helio Cee Basophils/100 WBC (Bld) 0.7 % Normal 0.2-2.0 [facility] Comment on above: Performed By: #### E RUR #### [facility] [address] [place] [address] Dr. Helio Cee EO # 0.2 103/ul Normal 0.0-0.7 [facility] Comment on above: Performed By: #### E RUR #### [facility] [address] [place] [address] Dr. Helio Cee Eosinophils/100 WBC (Bld) 1.9 % Normal 0.9-7.0 [facility] Comment on above: Performed By: #### E RUR #### [facility] [address] [place] [address] Dr. Helio Cee Erythrocyte distribution width (RBC) [Ratio] 14.3 % Normal 11.0-15.0 [facility] Comment on above: Performed By: #### E RUR #### [facility] [address] [place] [address] Dr. Helio Cee Hematocrit (Bld) [Volume fraction] 37.9 % Normal 36.0-48.0 [facility] Comment on above: Performed By: #### E RUR #### [facility] [address] [place] [address] Dr. Helio Cee Hemoglobin (Bld) [Mass/Vol] 12.0 g/dL Normal 12.0-16.0 [facility] Comment on above: Performed By: #### E RUR #### [facility] [address] [place] [address] Dr. Helio Cee IG # 0.10 10e3/ul Critically high 0.00-0.03 [facility] Comment on above: Performed By: #### E RUR #### [facility] [address] [place] [address] Dr. Helio Cee IG % 1.1 % Critically high 0.0-0.5 [facility] [place] Comment on above: Performed By: #### E RUR #### [facility] [address] [place] [address] Dr. Helio Cee LYMPH # 0.9 103/ul Critically low 1.2-3.8 [facility] Comment on above: Performed By: #### E RUR #### [facility] [address] [place] [address] Dr. Helio Cee Lymphocytes/100 WBC (Bld) 10.1 % Critically low 20.5-60.0 [facility] Comment on above: Performed By: #### E RUR #### [facility] [address] [place] [address] Dr. Helio Cee MANUAL DIFF REQ NO Normal [facility] [place] Comment on above: Performed By: #### E RUR #### [facility] [address] [place] [address] Dr. Helio Cee MCH (RBC) [Entitic mass] 29.8 pg Normal 26.7-34.0 [facility] Comment on above: Performed By: #### E RUR #### [facility] [address] [place] [address] Dr. Helio Cee MCHC (RBC) [Mass/Vol] 31.7 g/dL Normal 29.9-35.2 [facility] Comment on above: Performed By: #### E RUR #### [facility] [address] [place] [address] Dr. Helio Cee MCV (RBC) [Entitic vol] 94.0 fL Normal 81.0-99.0 [facility] Comment on above: Performed By: #### E RUR #### [facility] [address] [place] [address] Dr. Helio Cee MONO # 0.7 103/ul Normal 0.3-0.8 [facility] Comment on above: Performed By: #### E RUR #### [facility] [address] [place] [address] Dr. Helio Cee Monocytes/100 WBC (Bld) 7.8 % Normal 1.7-12.0 [facility] Comment on above: Performed By: #### E RUR #### [facility] [address] [place] [address] Dr. Helio Cee NEUT # 7.2 103/ul Critically high 1.4-6.5 [facility] [place] Comment on above: Performed By: #### E RUR #### [facility] [address] [place] [address] Dr. Helio Cee Neutrophils/100 WBC (Bld) 78.4 % Critically high 43.0-75.0 [facility] Comment on above: Performed By: #### E RUR #### [facility] [address] [place] [address] Dr. Helio Cee Platelet mean volume (Bld) [Entitic vol] 10.6 fL Normal 9.5-13.5 [facility] Comment on above: Performed By: #### E RUR #### [facility] [address] [place] [address] Dr. Helio Cee PLT 278 103/ul Normal 150-450 [facility] Comment on above: Performed By: #### E RUR #### [facility] [address] [place] [address] Dr. Helio Cee RBC 4.03 106/ul Critically low 4.20-5.40 [facility] Comment on above: Performed By: #### E RUR #### [facility] [address] [place] [address] Dr. Helio Cee WBC 9.1 103/ul Normal 4.0-11.0 [facility] Comment on above: Performed By: #### E RUR #### [facility] [address] [place] [address] [address] Helio Cee CTA CHEST WO W CONon 2 022 CTA CHEST WO W CON CT [...] by: Jay BARAHONA Date: 2021-11-22 16:47 Normal [facility] CULTURE BLOODon 11-22-2021 Microscopic examination of blood, culture Culture Observations: NO GROWTH AT 5 DAYS. Normal [facility] Comment on above: Performed By: #### B [id number] ####[facility] [address] [place] [id number]. Helio Cee Microscopic examination of blood, culture Culture Observations: NO GROWTH AT 5 DAYS. Normal [facility] Comment on above: Performed By: #### B [id number] #### [facility] [address] [place] [address] [address] Helio Cee [facility]on 11-11 SARS-CoV-2 (COVID-19) RNA KIMMY+probe Ql (Unsp spec) Not detected Normal NOT DETECTED [facility] Comment on above: Result Comment: When diagnostic [...] for this test is supported by the Hospital Monitor of Health and Human Service's declaration that [...] used). Performed By: #### C [id number] #### [facility] [address] [address] [address] Helio Cee LACTATE/LACTIC ACIDon 2021 Lactate [Moles/Vol] mmol/L Critically low 0.4-1.9 [facility] Comment on above: Performed By: #### L ACT ####[facility] [address] [place] [address]Dr. Helio Cee PROF 14(COMP METB)on 022 Albumin [Mass/Vol] 3.1 g/dL Critically low 3.4-5.0 [facility] Comment on above: Performed By: #### V [id number] #### [facility] [address] [place] [address] Dr. Helio Cee Albumin/Globulin [Mass ratio] 0.8 {ratio} Normal [facility] Comment on above: Performed By: #### V [id number] #### [facility] [address] [place] [address] Dr. Helio Cee ALP [Catalytic activity/Vol] 92 U/L Normal 46-116 [facility] Comment on above: Performed By: #### V [id number] #### [facility] [address] [place] [address] Dr. Helio Cee ALT [Catalytic activity/Vol] 23 U/L Normal 14-59 [facility] Comment on above: Performed By: #### V [id number] #### [facility] [address] [place] [address] Dr. Helio Cee Anion gap [Moles/Vol] 12.8 mmol/L Normal [facility] Comment on above: Performed By: #### V [id number] #### [facility] [address] [place] [address] Dr. Helio Cee AST [Catalytic activity/Vol] 16 U/L Normal 15-37 [facility] Comment on above: Performed By: #### V [id number] #### [facility] [address] [place] [address] Dr. Helio Cee Bilirubin [Mass/Vol] 0.6 mg/dL Normal 0.2-1.0 [facility] Comment on above: Performed By: #### V [id number] #### [facility] [address] [place] [address] Dr. Helio Cee Calcium [Mass/Vol] 9.5 mg/dL Normal 8.5-10.1 [facility] Comment on above: Performed By: #### V [id number] #### [facility] [address] [place] [address] Dr. Helio Cee Chloride [Moles/Vol] 106 mmol/L Normal 98-107 [facility] Comment on above: Performed By: #### V [id number] #### [facility] [address] [address] [address] Helio Cee CO2 [Moles/Vol] 25.1 mmol/L Normal 21.0-32.0 [facility] Comment on above: Performed By: #### V [id number] #### [facility] [address] [address] [address] Helio Cee Creatinine [Mass/Vol] 1.06 mg/dL Critically high 0.55-1.02 [facility] Comment on above: Performed By: #### V [id number] #### [facility] [address] [place] [address] Dr. Helio Cee EGFR-AF BELARUSIAN >60 Normal >=60 [facility] Comment on above: Performed By: #### V [id number] #### [facility] [address] [address] [address] Helio Cee EGFR-NON AF BELARUSIAN 51 mL/min/1.73m2 Critically low >=60 [facility] Comment on above: Performed By: #### V [id number] #### [facility] [address] [address] [address] Helio Cee Globulin (S) [Mass/Vol] 4.1 g/dL Normal [facility] Comment on above: Performed By: #### V [id number] #### [facility] [address] [address] [address] Helio Cee Glucose [Mass/Vol] 99 mg/dL Normal 74-106 [facility] Comment on above: Performed By: #### V [id number] #### [facility] [address] [address] [address] Helio Cee Potassium [Moles/Vol] 3.9 mmol/L Normal 3.5-5.1 [facility] Comment on above: Performed By: #### V [id number] #### [facility] [address] [address] [address] Helio Cee Protein [Mass/Vol] 7.2 g/dL Normal 6.4-8.2 [facility] Comment on above: Performed By: #### V [id number] #### [facility] [address] [place] [address] Dr. Helio Cee Sodium [Moles/Vol] 140 mmol/L Normal 136-145 [facility] Comment on above: Performed By: #### V [id number] #### [facility] [address] [place] [address] Dr. Helio Cee Urea nitrogen [Mass/Vol] 15.0 mg/dL Normal 7.0-18.0 [facility] Comment on above: Performed By: #### V [id number] #### [facility] [address] [place] [address] Dr. Helio Cee Urea nitrogen/Creatinine [Mass ratio] 14.2 mg/mg Normal [facility] Comment on above: Performed By: #### V [id number] #### [facility] [address] [place] [address] Dr. Helio Cee TROPONIN, HIGH SENSITIVITYon 11-22-2021 HSTROP 11.6 pg/mL Normal 4.0-51.3 [facility] Comment on above: Result Comment: CUT- OFF POINTS HAVE BEEN ESTABLISHED BASED ON THE FOURTH UNIVERSAL DEFINITIONS OF MYOCARDIAL INFARCTION. THE UPPER REFERENCE LIMIT (URL) OF TROPONIN, DEFINED THE 99TH PERCENTILE OF cTnI DISTRIBUTION IN A REFERENCE POPULATION, HAS BEEN CONFIRMED THE DECISION THRESHOLD FOR ND DIAGNOSIS. Performed By: #### V [id number] #### [facility] [address] [place] [address] Dr. Helio Cee XR CHEST 2 Von [...] by: ISAC CONNOR Date: 2021-11-22 14:20 Normal [facility] BNPon 11-21-2021 Natriuretic peptide B (Bld) [Mass/Vol] 953.0 pg/mL Critically high <=900.0 [facility] Comment on above: Performed By: #### E RUR #### [facility] [address] [place] [address] Dr. Helio Cee CBC AUTO DIFFon 11-21-2021 BASO # 0.0 103/ul Normal 0.0-0.1 [facility] Comment on above: Performed By: #### E RUR #### [facility] [address] [place] [address] Dr. Helio Cee Basophils/100 WBC (Bld) 0.4 % Normal 0.2-2.0 [facility] Comment on above: Performed By: #### E RUR #### [facility] [address] [place] [address] Dr. Helio Cee EO # 0.1 103/ul Normal 0.0-0.7 [facility] Comment on above: Performed By: #### E RUR #### [facility] [address] [place] [address] Dr. Helio Cee Eosinophils/100 WBC (Bld) 1.1 % Normal 0.9-7.0 [facility] Comment on above: Performed By: #### E RUR #### [facility] [address] [place] [address] Dr. Helio Cee Erythrocyte distribution width (RBC) [Ratio] 14.6 % Normal 11.0-15.0 [facility] Comment on above: Performed By: #### E RUR #### [facility] [address] [place] [address] Dr. Helio Cee Hematocrit (Bld) [Volume fraction] 35.2 % Critically low 36.0-48.0 [facility] Comment on above: Performed By: #### E RUR #### [facility] [address] [place] [address] Dr. Helio Cee Hemoglobin (Bld) [Mass/Vol] 10.9 g/dL Critically low 12.0-16.0 [facility] Comment on above: Performed By: #### E RUR #### [facility] [address] [place] [address] Dr. Helio Cee IG # 0.07 10e3/ul Critically high 0.00-0.03 [facility] Comment on above: Performed By: #### E RUR #### [facility] [address] [place] [address] Dr. Helio Cee IG % 0.7 % Critically high 0.0-0.5 [facility] [place] Comment on above: Performed By: #### E RUR #### [facility] [address] [place] [address] Dr. Helio Cee LYMPH # 1.4 103/ul Normal 1.2-3.8 [facility] Comment on above: Performed By: #### E RUR #### [facility] [address] [place] [address] Dr. Helio Cee Lymphocytes/100 WBC (Bld) 13.3 % Critically low 20.5-60.0 [facility] Comment on above: Performed By: #### E RUR #### [facility] [address] [place] [address] Dr. Helio Cee MANUAL DIFF REQ NO Normal [facility] [place] Comment on above: Performed By: #### E RUR #### [facility] [address] [place] [address] Dr. Helio Cee MCH (RBC) [Entitic mass] 29.5 pg Normal 26.7-34.0 [facility] Comment on above: Performed By: #### E RUR #### [facility] [address] [place] [address] Dr. Helio Cee MCHC (RBC) [Mass/Vol] 31.0 g/dL Normal 29.9-35.2 [facility] Comment on above: Performed By: #### E RUR #### [facility] [address] [place] [address] Dr. Helio Cee MCV (RBC) [Entitic vol] 95.4 fL Normal 81.0-99.0 [facility] Comment on above: Performed By: #### E RUR #### [facility] [address] [place] [address] Dr. Helio Cee MONO # 0.8 103/ul Normal 0.3-0.8 [facility] Comment on above: Performed By: #### E RUR #### [facility] [address] [place] [address] Dr. Helio Cee Monocytes/100 WBC (Bld) 7.3 % Normal 1.7-12.0 [facility] Comment on above: Performed By: #### E RUR #### [facility] [address] [place] [address] Dr. Helio Cee NEUT # 7.9 103/ul Critically high 1.4-6.5 [facility] [place] Comment on above: Performed By: #### E RUR #### [facility] [address] [place] [address] Dr. Helio Cee Neutrophils/100 WBC (Bld) 77.2 % Critically high 43.0-75.0 [facility] Comment on above: Performed By: #### E RUR #### [facility] [address] [place] [address] Dr. Helio Cee Platelet mean volume (Bld) [Entitic vol] 11.1 fL Normal 9.5-13.5 [facility] Comment on above: Performed By: #### E RUR #### [facility] [address] [place] [address] Dr. Helio Cee PLT 245 103/ul Normal 150-450 [facility] Comment on above: Performed By: #### E RUR #### [facility] [address] [place], [place] [id number] Dr. Helio Cee RBC 3.69 106/ul Critically low 4.20-5.40 [facility] Comment on above: Performed By: #### E RUR #### [facility] [address] [place] [address] Dr. Helio Cee WBC 10.2 103/ul Normal 4.0-11.0 [facility] Comment on above: Performed By: #### E RUR #### [facility] [address] [address] [address] Helio Cee PROF 14(COMP METB)on 022 Albumin [Mass/Vol] 2.6 g/dL Critically low 3.4-5.0 [facility] Comment on above: Performed By: #### V [id number] #### [facility] [address] [place] [address] Dr. Helio Cee Albumin/Globulin [Mass ratio] 0.7 {ratio} Normal [facility] Comment on above: Performed By: #### V [id number] #### [facility] [address] [place] [address] Dr. Helio Cee ALP [Catalytic activity/Vol] 75 U/L Normal 46-116 [facility] Comment on above: Performed By: #### V [id number] #### [facility] [address] [place] [address] Dr. Helio Cee ALT [Catalytic activity/Vol] 19 U/L Normal 14-59 [facility] Comment on above: Performed By: #### V [id number] #### [facility] [address] [place] [address] Dr. Helio Cee Anion gap [Moles/Vol] 11.7 mmol/L Normal [facility] Comment on above: Performed By: #### V [id number] #### [facility] [address] [place] [address] Dr. Helio Cee AST [Catalytic activity/Vol] 8 U/L Critically low 15-37 [facility] Comment on above: Performed By: #### V [id number] #### [facility] [address] [place] [address] Dr. Helio Cee Bilirubin [Mass/Vol] 0.3 mg/dL Normal 0.2-1.0 [facility] Comment on above: Performed By: #### V [id number] #### [facility] [address] [place] [address] Dr. Helio Cee Calcium [Mass/Vol] 9.0 mg/dL Normal 8.5-10.1 [facility] Comment on above: Performed By: #### V [id number] #### [facility] [address] [address] [address] Helio Cee Chloride [Moles/Vol] 107 mmol/L Normal 98-107 [facility] Comment on above: Performed By: #### V [id number] #### [facility] [address] [address] [address] Helio Cee CO2 [Moles/Vol] 24.7 mmol/L Normal 21.0-32.0 [facility] Comment on above: Performed By: #### V [id number] #### [facility] [address] [address] [address] Helio Cee Creatinine [Mass/Vol] 0.91 mg/dL Normal 0.55-1.02 [facility] Comment on above: Performed By: #### V [id number] #### [facility] [address] [address] [address] Helio Cee EGFR-AF BELARUSIAN >60 Normal >=60 [facility] Comment on above: Performed By: #### V [id number] #### [facility] [address] [address] [address] Helio Cee EGFR-NON AF BELARUSIAN 60 mL/min/1.73m2 Normal >=60 [facility] Comment on above: Performed By: #### V [id number] #### [facility] [address] [address] [address] Helio Cee Globulin (S) [Mass/Vol] 3.9 g/dL Normal [facility] Comment on above: Performed By: #### V [id number] #### [facility] [address] [address] [address] Helio Cee Glucose [Mass/Vol] 131 mg/dL Critically high 74-106 [facility] Comment on above: Performed By: #### V [id number] #### [facility] [address] [address] [address] Helio Cee Potassium [Moles/Vol] 3.4 mmol/L Critically low 3.5-5.1 [facility] Comment on above: Performed By: #### V [id number] #### [facility] [address] [place] [address] Dr. Helio Cee Protein [Mass/Vol] 6.5 g/dL Normal 6.4-8.2 [facility] Comment on above: Performed By: #### V [id number] #### [facility] [address] [place] [address] Dr. Helio Cee Sodium [Moles/Vol] 140 mmol/L Normal 136-145 [facility] Comment on above: Performed By: #### V [id number] #### [facility] [address] [place] [address] Dr. Helio Cee Urea nitrogen [Mass/Vol] 14.0 mg/dL Normal 7.0-18.0 [facility] Comment on above: Performed By: #### V [id number] #### [facility] [address] [place] [address] Dr. Helio Cee Urea nitrogen/Creatinine [Mass ratio] 15.4 mg/mg Normal [facility] Comment on above: Performed By: #### V [id number] #### [facility] [address] [place] [address] Dr. Helio Cee BNPon 11-20-2021 Natriuretic peptide B (Bld) [Mass/Vol] 781.0 pg/mL Normal <=900.0 [facility] Comment on above: Performed By: #### E RUR #### [facility] [address] [place] [address] Dr. Helio Cee CBC AUTO DIFFon 11-20-2021 BASO # 0.0 103/ul Normal 0.0-0.1 [facility] Comment on above: Performed By: #### V [id number] #### [facility] [address] [place] [address] Dr. Helio Cee Basophils/100 WBC (Bld) 0.3 % Normal 0.2-2.0 [facility] Comment on above: Performed By: #### V [id number] #### [facility] [address] [place] [address] Dr. Helio Cee EO # 0.1 103/ul Normal 0.0-0.7 [facility] Comment on above: Performed By: #### V [id number] #### [facility] [address] [place] [address] Dr. Helio Cee Eosinophils/100 WBC (Bld) 0.5 % Critically low 0.9-7.0 [facility] Comment on above: Performed By: #### V [id number] #### [facility] [address] [place] [address] Dr. Helio Cee Erythrocyte distribution width (RBC) [Ratio] 14.5 % Normal 11.0-15.0 [facility] Comment on above: Performed By: #### V [id number] #### [facility] [address] [place] [address] Dr. Helio Cee Hematocrit (Bld) [Volume fraction] 36.6 % Normal 36.0-48.0 [facility] Comment on above: Performed By: #### V [id number] #### [facility] [address] [place] [address] Dr. Helio Cee Hemoglobin (Bld) [Mass/Vol] 11.5 g/dL Critically low 12.0-16.0 [facility] Comment on above: Performed By: #### V [id number] #### [facility] [address] [place] [address] Dr. Helio Cee IG # 0.07 10e3/ul Critically high 0.00-0.03 [facility] Comment on above: Performed By: #### V [id number] #### [facility] [address] [place] [address] Dr. Helio Cee IG % 0.5 % Normal 0.0-0.5 [facility] Comment on above: Performed By: #### V [id number] #### [facility] [address] [place] [address] Dr. Helio Cee LYMPH # 1.2 103/ul Normal 1.2-3.8 [facility] Comment on above: Performed By: #### V [id number] #### [facility] [address] [place] [address] Dr. Helio Cee Lymphocytes/100 WBC (Bld) 9.5 % Critically low 20.5-60.0 [facility] Comment on above: Performed By: #### V [id number] #### [facility] [address] [place] [address] Dr. Helio Cee MANUAL DIFF REQ NO Normal [facility] Comment on above: Performed By: #### V [id number] #### [facility] [address] [place] [address] Dr. Helio Cee MCH (RBC) [Entitic mass] 30.2 pg Normal 26.7-34.0 [facility] Comment on above: Performed By: #### V [id number] #### [facility] [address] [place] [address] Dr. Helio Cee MCHC (RBC) [Mass/Vol] 31.4 g/dL Normal 29.9-35.2 [facility] Comment on above: Performed By: #### V [id number] #### [facility] [address] [place] [address] Dr. Helio Cee MCV (RBC) [Entitic vol] 96.1 fL Normal 81.0-99.0 [facility] Comment on above: Performed By: #### V [id number] #### [facility] [address] [place] [address] Dr. Helio Cee MONO # 0.7 103/ul Normal 0.3-0.8 [facility] Comment on above: Performed By: #### V [id number] #### [facility] [address] [place] [address] Dr. Helio Cee Monocytes/100 WBC (Bld) 5.7 % Normal 1.7-12.0 [facility] Comment on above: Performed By: #### V [id number] #### [facility] [address] [place] [address] Dr. Helio Cee NEUT # 10.8 103/ul Critically high 1.4-6.5 [facility] Comment on above: Performed By: #### V [id number] #### [facility] [address] [place] [address] Dr. Helio Cee Neutrophils/100 WBC (Bld) 83.5 % Critically high 43.0-75.0 [facility] Comment on above: Performed By: #### V [id number] #### [facility] [address] [address] [address] Helio Cee Platelet mean volume (Bld) [Entitic vol] 11.1 fL Normal 9.5-13.5 [facility] Comment on above: Performed By: #### V [id number] #### [facility] [address] [place] [address] Dr. Helio Cee PLT 231 103/ul Normal 150-450 [facility] Comment on above: Performed By: #### V [id number] #### [facility] [address] [place] [address] Dr. Helio Cee RBC 3.81 106/ul Critically low 4.20-5.40 [facility] Comment on above: Performed By: #### V [id number] #### [facility] [address] [place] [address] Dr. Helio Cee WBC 13.0 103/ul Critically high 4.0-11.0 [facility] Comment on above: Performed By: #### V [id number] #### [facility] [address] [place] [address] Dr. Helio Cee PROF 14(COMP METB)on 022 Albumin [Mass/Vol] 2.9 g/dL Critically low 3.4-5.0 [facility] Comment on above: Performed By: #### E RUR #### [facility] [address] [place] [address] Dr. Helio Cee Albumin/Globulin [Mass ratio] 0.8 {ratio} Normal [facility] Comment on above: Performed By: #### E RUR #### [facility] [address] [place] [address] Dr. Helio Cee ALP [Catalytic activity/Vol] 81 U/L Normal 46-116 [facility] Comment on above: Performed By: #### E RUR #### [facility] [address] [place], [place] [id number] Dr. Helio Cee ALT [Catalytic activity/Vol] 21 U/L Normal 14-59 [facility] Comment on above: Performed By: #### E RUR #### [facility] [address] [place] [address] Dr. Helio Cee Anion gap [Moles/Vol] 12.4 mmol/L Normal Th [facility] Comment on above: Performed By: #### E RUR #### [facility] [address] [address] [address] Helio Cee AST [Catalytic activity/Vol] 11 U/L Critically low 15-37 [facility] Comment on above: Performed By: #### E RUR #### [facility] [address] [place] [address] Dr. Helio Cee Bilirubin [Mass/Vol] 0.4 mg/dL Normal 0.2-1.0 [facility] Comment on above: Performed By: #### E RUR #### [facility] [address] [place] [address] Dr. Helio Cee Calcium [Mass/Vol] 8.7 mg/dL Normal 8.5-10.1 [facility] Comment on above: Performed By: #### E RUR #### [facility] [address] [place] [address] Dr. Helio Cee Chloride [Moles/Vol] 108 mmol/L Critically high 98-107 [facility] Comment on above: Performed By: #### E RUR #### [facility] [address] [place] [address] Dr. Helio Cee CO2 [Moles/Vol] 24.2 mmol/L Normal 21.0-32.0 [facility] Comment on above: Performed By: #### E RUR #### [facility] [address] [place] [address] Dr. Helio Cee Creatinine [Mass/Vol] 1.03 mg/dL Critically high 0.55-1.02 [facility] Comment on above: Performed By: #### E RUR #### [facility] [address] [place] [address] Dr. Helio Cee EGFR-AF BELARUSIAN >60 Normal >=60 [facility] Comment on above: Performed By: #### E RUR #### [facility] [address] [address] [address] Helio Cee EGFR-NON AF BELARUSIAN 52 mL/min/1.73m2 Critically low >=60 [facility] Comment on above: Performed By: #### E RUR #### [facility] [address] [address] [address] Helio Cee Globulin (S) [Mass/Vol] 3.5 g/dL Normal [facility] Comment on above: Performed By: #### E RUR #### [facility] [address] [place] [address] Dr. Helio Cee Glucose [Mass/Vol] 142 mg/dL Critically high 74-106 [facility] Comment on above: Performed By: #### E RUR #### [facility] [address] [address] [address] Helio Cee Potassium [Moles/Vol] 3.6 mmol/L Normal 3.5-5.1 [facility] Comment on above: Performed By: #### E RUR #### [facility] [address] [place] [address] Dr. Helio Cee Protein [Mass/Vol] 6.4 g/dL Normal 6.4-8.2 [facility] Comment on above: Performed By: #### E RUR #### [facility] [address] [address] [address] Helio Cee Sodium [Moles/Vol] 141 mmol/L Normal 136-145 [facility] Comment on above: Performed By: #### E RUR #### [facility] [address] [address] [address] Helio Cee Urea nitrogen [Mass/Vol] 19.0 mg/dL Critically high 7.0-18.0 [facility] Comment on above: Performed By: #### E RUR #### [facility] [address] [address] [address] Helio Cee Urea nitrogen/Creatinine [Mass ratio] 18.4 mg/mg Normal [facility] Comment on above: Performed By: #### E RUR #### [facility] [address] [place] [address] Dr. Helio Cee XR CHEST 2 Von [...] by: EUN BARRY Date: 2021-11-20 07:56 Normal [facility] BNPon 11-19-2021 Natriuretic peptide B (Bld) [Mass/Vol] 777.0 pg/mL Normal <=900.0 [facility] Comment on above: Performed By: #### E RUR #### [facility] [address] [place] [address] Dr. Helio Cee CBC AUTO DIFFon 11-19-2021 BASO # 0.0 103/ul Normal 0.0-0.1 [facility] Comment on above: Performed By: #### V [id number] #### [facility] [address] [place] [address] Dr. Helio Cee Basophils/100 WBC (Bld) 0.2 % Normal 0.2-2.0 [facility] Comment on above: Performed By: #### V [id number] #### [facility] [address] [place] [address] Dr. Helio Cee EO # 0.1 103/ul Normal 0.0-0.7 [facility] Comment on above: Performed By: #### V [id number] #### [facility] [address] [place] [address] Dr. Helio Cee Eosinophils/100 WBC (Bld) 0.5 % Critically low 0.9-7.0 [facility] Comment on above: Performed By: #### V [id number] #### [facility] [address] [address] [address] Helio Cee Erythrocyte distribution width (RBC) [Ratio] 14.6 % Normal 11.0-15.0 [facility] Comment on above: Performed By: #### V [id number] #### [facility] [address] [address] [address] Helio Cee Hematocrit (Bld) [Volume fraction] 37.4 % Normal 36.0-48.0 [facility] Comment on above: Performed By: #### V [id number] #### [facility] [address] [place] [address] Dr. Helio Cee Hemoglobin (Bld) [Mass/Vol] 11.5 g/dL Critically low 12.0-16.0 [facility] Comment on above: Performed By: #### V [id number] #### [facility] [address] [place] [address] Dr. Helio Cee IG # 0.07 10e3/ul Critically high 0.00-0.03 [facility] Comment on above: Performed By: #### V [id number] #### [facility] [address] [place] [address] Dr. Helio Cee IG % 0.5 % Normal 0.0-0.5 [facility] Comment on above: Performed By: #### V [id number] #### [facility] [address] [place] [address] Dr. Helio Cee LYMPH # 1.1 103/ul Critically low 1.2-3.8 [facility] Comment on above: Performed By: #### V [id number] #### [facility] [address] [place] [address] Dr. Helio Cee Lymphocytes/100 WBC (Bld) 6.8 % Critically low 20.5-60.0 [facility] Comment on above: Performed By: #### V [id number] #### [facility] [address] [place] [address] Dr. Helio Cee MANUAL DIFF REQ NO Normal [facility] Comment on above: Performed By: #### V [id number] #### [facility] [address] [place] [address] Dr. Helio Cee MCH (RBC) [Entitic mass] 30.1 pg Normal 26.7-34.0 [facility] Comment on above: Performed By: #### V [id number] #### [facility] [address] [place] [address] Dr. Helio Cee MCHC (RBC) [Mass/Vol] 30.7 g/dL Normal 29.9-35.2 [facility] Comment on above: Performed By: #### V [id number] #### [facility] [address] [place] [address] Dr. Helio Cee MCV (RBC) [Entitic vol] 97.9 fL Normal 81.0-99.0 [facility] Comment on above: Performed By: #### V [id number] #### [facility] [address] [place] [address] Dr. Helio Cee MONO # 0.8 103/ul Normal 0.3-0.8 [facility] Comment on above: Performed By: #### V [id number] #### [facility] [address] [place] [address] Dr. Helio Cee Monocytes/100 WBC (Bld) 5.3 % Normal 1.7-12.0 [facility] Comment on above: Performed By: #### V [id number] #### [facility] [address] [place] [address] Dr. Helio Cee NEUT # 13.3 103/ul Critically high 1.4-6.5 [facility] Comment on above: Performed By: #### V [id number] #### [facility] [address] [place] [address] Dr. Helio Cee Neutrophils/100 WBC (Bld) 86.7 % Critically high 43.0-75.0 [facility] Comment on above: Performed By: #### V [id number] #### [facility] [address] [place] [address] Dr. Helio Cee Platelet mean volume (Bld) [Entitic vol] 11.4 fL Normal 9.5-13.5 [facility] Comment on above: Performed By: #### V [id number] #### [facility] [address] [place] [address] Dr. Helio Cee PLT 215 103/ul Normal 150-450 [facility] Comment on above: Performed By: #### V [id number] #### [facility] [address] [place] [address] Dr. Helio Cee RBC 3.82 106/ul Critically low 4.20-5.40 [facility] Comment on above: Performed By: #### V [id number] #### [facility] [address] [place] [address] Dr. Helio Cee WBC 15.3 103/ul Critically high 4.0-11.0 [facility] Comment on above: Performed By: #### V [id number] #### [facility] [address] [place] [address] Dr. Helio Cee PROF 14(COMP METB)on 022 Albumin [Mass/Vol] 2.8 g/dL Critically low 3.4-5.0 [facility] Comment on above: Performed By: #### E RUR #### [facility] [address] [place] [address] Dr. Helio Cee Albumin/Globulin [Mass ratio] 0.8 {ratio} Normal [facility] Comment on above: Performed By: #### E RUR #### [facility] [address] [place] [address] Dr. Helio Cee ALP [Catalytic activity/Vol] 74 U/L Normal 46-116 [facility] Comment on above: Performed By: #### E RUR #### [facility] [address] [place] [address] Dr. Helio Cee ALT [Catalytic activity/Vol] 21 U/L Normal 14-59 [facility] Comment on above: Performed By: #### E RUR #### [facility] [address] [place] [address] Dr. Helio Cee Anion gap [Moles/Vol] 13.5 mmol/L Normal Th [facility] Comment on above: Performed By: #### E RUR #### [facility] [address] [address] [address] Helio Cee AST [Catalytic activity/Vol] 11 U/L Critically low 15-37 [facility] Comment on above: Performed By: #### E RUR #### [facility] [address] [address] [address] Helio Cee Bilirubin [Mass/Vol] 0.5 mg/dL Normal 0.2-1.0 [facility] Comment on above: Performed By: #### E RUR #### [facility] [address] [place] [address] Dr. Helio Cee Calcium [Mass/Vol] 8.4 mg/dL Critically low 8.5-10.1 Th [facility] Comment on above: Performed By: #### E RUR #### [facility] [address] [place] [address] Dr. Helio Cee Chloride [Moles/Vol] 107 mmol/L Normal 98-107 [facility] Comment on above: Performed By: #### E RUR #### [facility] [address] [place] [address] Dr. Helio Cee CO2 [Moles/Vol] 21.0 mmol/L Normal 21.0-32.0 [facility] Comment on above: Performed By: #### E RUR #### [facility] [address] [place] [address] Dr. Helio eCe Creatinine [Mass/Vol] 1.07 mg/dL Critically high 0.55-1.02 [facility] Comment on above: Performed By: #### E RUR #### [facility] [address] [place] [address] Dr. Helio Cee EGFR-AF BELARUSIAN >60 Normal >=60 [facility] Comment on above: Performed By: #### E RUR #### [facility] [address] [place] [address] Dr. Helio Cee EGFR-NON AF BELARUSIAN 50 mL/min/1.73m2 Critically low >=60 [facility] Comment on above: Performed By: #### E RUR #### [facility] [address] [address] [address] Helio Cee Globulin (S) [Mass/Vol] 3.4 g/dL Normal [facility] Comment on above: Performed By: #### E RUR #### [facility] [address] [address] [address] Helio Cee Glucose [Mass/Vol] 109 mg/dL Critically high 74-106 [facility] Comment on above: Performed By: #### E RUR #### [facility] [address] [address] [address] Helio Cee Potassium [Moles/Vol] 3.5 mmol/L Normal 3.5-5.1 [facility] Comment on above: Performed By: #### E RUR #### [facility] [address] [address] [address] Helio Cee Protein [Mass/Vol] 6.2 g/dL Critically low 6.4-8.2 [facility] Comment on above: Performed By: #### E RUR #### [facility] [address] [address] [address] Helio Cee Sodium [Moles/Vol] 138 mmol/L Normal 136-145 [facility] Comment on above: Performed By: #### E RUR #### [facility] [address] [address] [address] Helio Cee Urea nitrogen [Mass/Vol] 25.0 mg/dL Critically high 7.0-18.0 [facility] Comment on above: Performed By: #### E RUR #### [facility] [address] [address] [address] Helio Cee Urea nitrogen/Creatinine [Mass ratio] 23.4 mg/mg Normal [facility] Comment on above: Performed By: #### E RUR #### [facility] [address] [address] [address] Helio Cee BNPon 11-18-2021 Natriuretic peptide B (Bld) [Mass/Vol] 386.0 pg/mL Normal <=900.0 [facility] Comment on above: Performed By: #### B CARE MANAGER CNA, HSTROPN, BMP ####[facility] [id number] [address]Dr. Helio Cee CBC AUTO DIFFon 11-18-2021 BASO # 0.0 103/ul Normal 0.0-0.1 [facility] Comment on above: Performed By: #### V [id number] #### [facility] [address] [address] [address] Helio Cee Basophils/100 WBC (Bld) 0.3 % Normal 0.2-2.0 [facility] Comment on above: Performed By: #### V [id number] #### [facility] [address] [place] [address] Dr. Helio Cee EO # 0.0 103/ul Normal 0.0-0.7 [facility] Comment on above: Performed By: #### V [id number] #### [facility] [address] [place] [address] Dr. Helio Cee Eosinophils/100 WBC (Bld) 0.1 % Critically low 0.9-7.0 [facility] Comment on above: Performed By: #### V [id number] #### [facility] [address] [place] [address] Dr. Helio Cee Erythrocyte distribution width (RBC) [Ratio] 14.4 % Normal 11.0-15.0 [facility] Comment on above: Performed By: #### V [id number] #### [facility] [address] [place] [address] Dr. Helio Cee Hematocrit (Bld) [Volume fraction] 43.6 % Normal 36.0-48.0 [facility] Comment on above: Performed By: #### V [id number] #### [facility] [address] [place] [address] Dr. Helio Cee Hemoglobin (Bld) [Mass/Vol] 13.4 g/dL Normal 12.0-16.0 [facility] Comment on above: Performed By: #### V [id number] #### [facility] [address] [address] [address] Helio Cee IG # 0.03 10e3/ul Normal 0.00-0.03 [facility] Comment on above: Performed By: #### V [id number] #### [facility] [address] [address] [address] Helio Cee IG % 0.3 % Normal 0.0-0.5 [facility] Comment on above: Performed By: #### V [id number] #### [facility] [address] [address] [address] Helio Cee LYMPH # 0.4 103/ul Critically low 1.2-3.8 [facility] Comment on above: Performed By: #### V [id number] #### [facility] [address] [place] [address] Dr. Helio Cee Lymphocytes/100 WBC (Bld) 4.0 % Critically low 20.5-60.0 [facility] Comment on above: Performed By: #### V [id number] #### [facility] [address] [place] [address] Dr. Helio Cee MANUAL DIFF REQ NO Normal [facility] [place] Comment on above: Performed By: #### V [id number] #### [facility] [address] [place] [address] Dr. Helio Cee MCH (RBC) [Entitic mass] 29.6 pg Normal 26.7-34.0 [facility] Comment on above: Performed By: #### V [id number] #### [facility] [address] [place] [address] Dr. Helio Cee MCHC (RBC) [Mass/Vol] 30.7 g/dL Normal 29.9-35.2 [facility] Comment on above: Performed By: #### V [id number] #### [facility] [address] [place] [address] Dr. Helio Cee MCV (RBC) [Entitic vol] 96.5 fL Normal 81.0-99.0 [facility] Comment on above: Performed By: #### V [id number] #### [facility] [address] [address] [address] Helio Cee MONO # 0.6 103/ul Normal 0.3-0.8 [facility] Comment on above: Performed By: #### V [id number] #### [facility] [address] [place] [address] Dr. Helio Cee Monocytes/100 WBC (Bld) 5.4 % Normal 1.7-12.0 [facility] Comment on above: Performed By: #### V [id number] #### [facility] [address] [place] [address] Dr. Helio Cee NEUT # 9.7 103/ul Critically high 1.4-6.5 [facility] [place] Comment on above: Performed By: #### V [id number] #### [facility] [address] [place] [address] Dr. Helio Cee Neutrophils/100 WBC (Bld) 89.9 % Critically high 43.0-75.0 [facility] Comment on above: Performed By: #### V [id number] #### [facility] [address] [place] [address] Dr. Helio Cee Platelet mean volume (Bld) [Entitic vol] 10.9 fL Normal 9.5-13.5 [facility] Comment on above: Performed By: #### V [id number] #### [facility] [address] [place] [address] Dr. Helio Cee PLT 265 103/ul Normal 150-450 [facility] Comment on above: Performed By: #### V [id number] #### [facility] [address] [place] [address] Dr. Helio Cee RBC 4.52 106/ul Normal 4.20-5.40 [facility] Comment on above: Performed By: #### V [id number] #### [facility] [address] [place] [address] Dr. Helio Cee WBC 10.7 103/ul Normal 4.0-11.0 [facility] Comment on above: Performed By: #### V [id number] #### [facility] [address] [place] [address] Dr. Helio Cee CULTURE BLOODon 11-18-2021 Microscopic examination of blood, culture Culture Observations: NO GROWTH AT 5 DAYS. Normal [facility] Comment on above: Performed By: #### B [id number] #### [facility] [address] [place] [address] Dr. Helio Cee Microscopic examination of blood, culture Culture Observations: NO GROWTH AT 5 DAYS. Normal [facility] Comment on above: Performed By: #### B [id number] #### [facility] [address] [place] [address] Dr. Helio Cee Covid-19 PCR ([facility])on SARS-CoV-2 (COVID-19) RNA KIMMY+probe Ql (Unsp spec) Not detected Normal NOT DETECTED [facility] Comment on above: Result Comment: [...] for this test is supported by the [place] of Health and Human Service's declaration that [...] used). Performed By: #### E RUR #### [facility] [address] [place] [address] Dr. Helio Cee ER URINE PROFILEon 2 Bilirubin Ql (U) Negative Normal NEGATIVE [facility] Comment on above: Performed By: #### E RUR #### [facility] [address] [place] [address] Dr. Helio Cee Clarity (U) CLEAR Normal CLEAR [facility] Comment on above: Performed By: #### E RUR #### [facility] [address] [place] [address] Dr. Helio Cee Color (U) LT. YELLOW Normal YELLOW [facility] Comment on above: Performed By: #### E RUR #### [facility] [address] [place] [address] Dr. Helio Cee ERUAHAg A micrscopic examination will be performed if indicated. Normal [facility] Comment on above: Performed By: #### E RUR #### [facility] [address] [place] [address] Dr. Helio Cee Glucose Ql (U) Negative Normal NEGATIVE [facility] Comment on above: Performed By: #### E RUR #### [facility] [address] [place] [address] Dr. Helio Cee Hemoglobin Ql (U) Negative Normal NEGATIVE [facility] Comment on above: Performed By: #### E RUR #### [facility] [address] [place] [address] Dr. Helio Cee Ketones Ql (U) Negative Normal NEGATIVE [facility] Comment on above: Performed By: #### E RUR #### [facility] [address] [place] [address] Dr. Helio Cee LEUKOCYTES Negative Normal NEGATIVE [facility] Comment on above: Performed By: #### E RUR #### [facility] [address] [place] [address] Dr. Helio Cee Nitrite Ql (U) Negative Normal NEGATIVE [facility] Comment on above: Performed By: #### E RUR #### [facility] [address] [place] [address] Dr. Helio Cee pH (U) 5.5 [pH] Normal 5-9 [facility] Comment on above: Performed By: #### E RUR #### [facility] [address] [place] [address] Dr. Helio Cee SPEC GRAVITY 1.015 Normal 1.005-<=1.02 5 [facility] Comment on above: Performed By: #### E RUR #### [facility] [address] [address] [address] Helio Cee UA PROTEIN Negative Normal NEGATIVE/ TRACE [facility] Comment on above: Performed By: #### E RUR #### [facility] [address] [address] [address] Helio Cee UR MICRO IND NOT INDICATED Normal [facility] Comment on above: Performed By: #### E RUR #### [facility] [address] [address] [address] Helio Cee Urobilinogen Qn (U) 0.2 {Nevaeh'U}/dL Normal 0.2 - 1. 0 [facility] Comment on above: Performed By: #### E RUR #### [facility] [address] [address] [address] Helio Cee PROF CHEM 8 (BAS METB)on Anion gap [Moles/Vol] 13.6 mmol/L Normal [facility] Comment on above: Performed By: #### B CARE MANAGER CNA, HSTROPN, BMP ####[facility] [id number] [address]Dr. Helio Cee Calcium [Mass/Vol] 9.1 mg/dL Normal 8.5-10.1 [facility] Comment on above: Performed By: #### B CARE MANAGER CNA, HSTROPN, BMP ####[facility] [address] [address]Dr. Helio Cee Chloride [Moles/Vol] 110 mmol/L Critically high 98-107 [facility] Comment on above: Performed By: #### B CARE MANAGER CNA, HSTROPN, BMP ####[facility] [address] [address]Dr. Helio Cee CO2 [Moles/Vol] 22.9 mmol/L Normal 21.0-32.0 [facility] Comment on above: Performed By: #### B CARE MANAGER CNA, HSTROPN, BMP ####[facility] [address] [address]Dr. Helio Cee Creatinine [Mass/Vol] 1.47 mg/dL Critically high 0.55-1.02 [facility] Comment on above: Performed By: #### B CARE MANAGER CNA, HSTROPN, BMP ####[facility] [address] [address]Dr. Helio Cee EGFR-AF BELARUSIAN 42 mL/min/1.73m2 Critically low >=60 [facility] Comment on above: Performed By: #### B CARE MANAGER CNA, HSTROPN, BMP ####[facility] [address] [address]Dr. Yilan Cee EGFR-NON AF BELARUSIAN 35 mL/min/1.73m2 Critically low >=60 [facility] Comment on above: Performed By: #### B CARE MANAGER CNA, HSTROPN, BMP ####[facility] [address] [address]Dr. Helio Cee Glucose [Mass/Vol] 120 mg/dL Critically high 74-106 [facility] Comment on above: Performed By: #### B CARE MANAGER CNA, HSTROPN, BMP ####[facility] [address] [place], [place] [address]Dr. Claudettelan Cee Potassium [Moles/Vol] 3.5 mmol/L Normal 3.5-5.1 [facility] Comment on above: Performed By: #### B CARE MANAGER CNA, HSTROPN, BMP ####[facility] [address] [address]Dr. Helio Cee Sodium [Moles/Vol] 143 mmol/L Normal 136-145 [facility] Comment on above: Performed By: #### B CARE MANAGER CNA, HSTROPN, BMP ####[facility] [address] [address]Dr. Claudettelan Cee Urea nitrogen [Mass/Vol] 29.0 mg/dL Critically high 7.0-18.0 [facility] Comment on above: Performed By: #### B CARE MANAGER CNA, HSTROPN, BMP ####[facility] [address] [address]Dr. Helio Cee Urea nitrogen/Creatinine [Mass ratio] 19.7 mg/mg Normal [facility] Comment on above: Performed By: #### B CARE MANAGER CNA, HSTROPN, BMP ####[facility] [address] [place], [place] [address]Tm. Helio Cee TROPONIN, HIGH SENSITIVITYon 11-18-2021 HSTROP 8.2 pg/mL Normal 4.0-51.3 [facility] Comment on above: Result Comment: CUT- OFF POINTS HAVE BEEN ESTABLISHED BASED ON THE FOURTH UNIVERSAL DEFINITIONS OF MYOCARDIAL INFARCTION. THE UPPER REFERENCE LIMIT (URL) OF TROPONIN, DEFINED THE 99TH PERCENTILE OF cTnI DISTRIBUTION IN A REFERENCE POPULATION, HAS BEEN CONFIRMED THE DECISION THRESHOLD FOR ND DIAGNOSIS. Performed By: #### B CARE MANAGER CNA, HSTROPN, BMP ####[facility] [address] [place], [place] [address]Ro. Helio Cee XR CHEST 1 Von 11-18-2021 [...] EHSAN MILLER Date: 2021-11-18 10:38 Normal [facility] BNPon 10-25-2021 Natriuretic peptide B (Bld) [Mass/Vol] 396.0 pg/mL Normal <=900.0 [facility] Comment on above: Performed By: #### V [id number] #### [facility] [address] [address] [address] Helio Cee CBC AUTO DIFFon 10-25-2021 BASO # 0.1 103/ul Normal 0.0-0.1 [facility] Comment on above: Performed By: #### E RUR #### [facility] [address] [address] [address] Helio Cee Basophils/100 WBC (Bld) 1.0 % Normal 0.2-2.0 [facility] Comment on above: Performed By: #### E RUR #### [facility] [address] [place] [address] Dr. Helio Cee EO # 0.2 103/ul Normal 0.0-0.7 [facility] Comment on above: Performed By: #### E RUR #### [facility] [address] [place] [address] Dr. Helio Cee Eosinophils/100 WBC (Bld) 2.7 % Normal 0.9-7.0 [facility] Comment on above: Performed By: #### E RUR #### [facility] [address] [place] [address] Dr. Helio Cee Erythrocyte distribution width (RBC) [Ratio] 14.6 % Normal 11.0-15.0 [facility] Comment on above: Performed By: #### E RUR #### [facility] [address] [place] [address] Dr. Helio Cee Hematocrit (Bld) [Volume fraction] 44.8 % Normal 36.0-48.0 [facility] Comment on above: Performed By: #### E RUR #### [facility] [address] [place] [address] Dr. Helio Cee Hemoglobin (Bld) [Mass/Vol] 13.8 g/dL Normal 12.0-16.0 [facility] Comment on above: Performed By: #### E RUR #### [facility] [address] [place] [address] Dr. Helio Cee IG # 0.03 10e3/ul Normal 0.00-0.03 [facility] Comment on above: Performed By: #### E RUR #### [facility] [address] [place] [address] Dr. Helio Cee IG % 0.3 % Normal 0.0-0.5 [facility] Comment on above: Performed By: #### E RUR #### [facility] [address] [place] [address] Dr. Helio Cee LYMPH # 1.6 103/ul Normal 1.2-3.8 [facility] Comment on above: Performed By: #### E RUR #### [facility] [address] [address] [address] Helio Cee Lymphocytes/100 WBC (Bld) 18.5 % Critically low 20.5-60.0 [facility] Comment on above: Performed By: #### E RUR #### [facility] [address] [place] [address] Dr. Helio Cee MANUAL DIFF REQ NO Normal [facility] [place] Comment on above: Performed By: #### E RUR #### [facility] [address] [place] [address] Dr. Helio Cee MCH (RBC) [Entitic mass] 29.9 pg Normal 26.7-34.0 [facility] Comment on above: Performed By: #### E RUR #### [facility] [address] [place] [address] Dr. Helio Cee MCHC (RBC) [Mass/Vol] 30.8 g/dL Normal 29.9-35.2 [facility] Comment on above: Performed By: #### E RUR #### [facility] [address] [place] [address] Dr. Helio Cee MCV (RBC) [Entitic vol] 97.2 fL Normal 81.0-99.0 [facility] Comment on above: Performed By: #### E RUR #### [facility] [address] [place] [address] Dr. Helio Cee MONO # 0.6 103/ul Normal 0.3-0.8 [facility] Comment on above: Performed By: #### E RUR #### [facility] [address] [place] [address] Dr. Helio Cee Monocytes/100 WBC (Bld) 7.0 % Normal 1.7-12.0 [facility] Comment on above: Performed By: #### E RUR #### [facility] [address] [place] [address] Dr. Helio Cee NEUT # 6.1 103/ul Normal 1.4-6.5 [facility] Comment on above: Performed By: #### E RUR #### [facility] [address] [address] [address] Helio Cee Neutrophils/100 WBC (Bld) 70.5 % Normal 43.0-75.0 [facility] Comment on above: Performed By: #### E RUR #### [facility] [address] [address] [address] Helio Cee Platelet mean volume (Bld) [Entitic vol] 11.0 fL Normal 9.5-13.5 [facility] Comment on above: Performed By: #### E RUR #### [facility] [address] [place] [address] Dr. Helio Cee PLT 292 103/ul Normal 150-450 [facility] Comment on above: Performed By: #### E RUR #### [facility] [address] [place] [address] Dr. Helio Cee RBC 4.61 106/ul Normal 4.20-5.40 [facility] Comment on above: Performed By: #### E RUR #### [facility] [address] [place] [address] Dr. Helio Cee WBC 8.6 103/ul Normal 4.0-11.0 [facility] Comment on above: Performed By: #### E RUR #### [facility] [address] [place] [address] Dr. Helio Cee ECHOCARDIO M/2D COMPLETEon 0 10-25-2021 ECHOCARDIO M/2D COMPLETE Patient: AARON JJ Exam Date: 10/25/2021 : 1945 Gender:F Ordering : DR JEREMIAH REED M.D. Admission #: [id number] Family : Order #: [id number] CLICK HERE TO VIEW EXAM ECHOCARDIOGRAM REPORT [...] Area(A4C): 20.40 cm2 Left Atrium Systolic Volume(A2C): 87742 mm3 Left Atrium Systolic Volume(A4C): 32683 mm3 Mitral Valve MV E to A Ratio: 0.80 Deceleration [place]: 4670 mm/s2 Mitral Valve A-Wave Peak Velocity: [...] on 10/25/2021 at 19:31 Normal [facility] MAMM SCREEN 3D EBONI CADon 10-25-2021 MG MAMM SCREEN 3D EBONI CAD Patient: AARON JJ Exam Date: 10/25/2021 : 1945 Gender:F Ordering : DR JEREMIAH REED M.D. Admission #: [id number] Family : Order #: [id number] CLICK HERE TO VIEW EXAM RADIOLOGY REPORT PROCEDURE: MAMMOGRAM SCREENING 3D BILATERAL CAD COMPARISON: MG MAMM SCREEN EBONI W CAD, 02/17/2020. MAMM SCREEN EBONI W CAD, 10/10/2018. INDICATIONS: Screening mammography Calculator Name NCI Breast Cancer Risk Assessment Tool 5 Year Breast Cancer Risk 4.90% Lifetime Breast Cancer Risk 11.00% Personal Breast Cancer No Personal Ovarian Cancer No Treatments Hysterectomy Family Cancers Mother with breast cancer at age 50; Aunt-maternal with breast cancer at age 70. LOCATION: [facility] BREAST COMPOSITION: Heterogeneously dense,which may [...] Miller M.D. on 10/25/2021 at 15:33 Normal [facility] PROF 14(COMP METB)on 022 Albumin [Mass/Vol] 3.8 g/dL Normal 3.4-5.0 [facility] Comment on above: Performed By: #### V [id number] #### [facility] [address] [address] [address] Helio Cee Albumin/Globulin [Mass ratio] 1.1 {ratio} Normal [facility] Comment on above: Performed By: #### V [id number] #### [facility] [address] [address] [address] Helio Cee ALP [Catalytic activity/Vol] 97 U/L Normal 46-116 [facility] Comment on above: Performed By: #### V [id number] #### [facility] [address] [place] [address] Dr. Helio Cee ALT [Catalytic activity/Vol] 31 U/L Normal 14-59 [facility] Comment on above: Performed By: #### V [id number] #### [facility] [address] [address] [address] Helio Cee Anion gap [Moles/Vol] 11.0 mmol/L Normal [facility] Comment on above: Performed By: #### V [id number] #### [facility] [address] [place] [address] Dr. Helio Cee AST [Catalytic activity/Vol] 13 U/L Critically low 15-37 [facility] Comment on above: Performed By: #### V [id number] #### [facility] [address] [place] [address] Dr. Helio Cee Bilirubin [Mass/Vol] 0.4 mg/dL Normal 0.2-1.0 [facility] Comment on above: Performed By: #### V [id number] #### [facility] [address] [place] [address] Dr. Helio Cee Calcium [Mass/Vol] 9.3 mg/dL Normal 8.5-10.1 [facility] Comment on above: Performed By: #### V [id number] #### [facility] [address] [address] [address] Helio Cee Chloride [Moles/Vol] 108 mmol/L Critically high 98-107 [facility] Comment on above: Performed By: #### V [id number] #### [facility] [address] [address] [address] Helio Cee CO2 [Moles/Vol] 28.4 mmol/L Normal 21.0-32.0 [facility] Comment on above: Performed By: #### V [id number] #### [facility] [address] [address] [address] Helio Cee Creatinine [Mass/Vol] 1.09 mg/dL Critically high 0.55-1.02 [facility] Comment on above: Performed By: #### V [id number] #### [facility] [address] [place] [address] Dr. Helio Cee EGFR-AF BELARUSIAN 59 mL/min/1.73m2 Critically low >=60 [facility] Comment on above: Performed By: #### V [id number] #### [facility] [address] [place] [address] Dr. Helio Cee EGFR-NON AF BELARUSIAN 49 mL/min/1.73m2 Critically low >=60 [facility] Comment on above: Performed By: #### V [id number] #### [facility] [address] [place] [address] Dr. Helio Cee Globulin (S) [Mass/Vol] 3.4 g/dL Normal [facility] Comment on above: Performed By: #### V [id number] #### [facility] [address] [address] [address] Helio Cee Glucose [Mass/Vol] 100 mg/dL Normal 74-106 [facility] Comment on above: Performed By: #### V [id number] #### [facility] [address] [address] [address] Helio Cee Potassium [Moles/Vol] 4.4 mmol/L Normal 3.5-5.1 [facility] Comment on above: Performed By: #### V [id number] #### [facility] [address] [place] [address] Dr. Helio Cee Protein [Mass/Vol] 7.2 g/dL Normal 6.4-8.2 [facility] Comment on above: Performed By: #### V [id number] #### [facility] [address] [place] [address] Dr. Helio Cee Sodium [Moles/Vol] 143 mmol/L Normal 136-145 [facility] Comment on above: Performed By: #### V [id number] #### [facility] [address] [place] [address] Dr. Helio Cee Urea nitrogen [Mass/Vol] 24.0 mg/dL Critically high 7.0-18.0 [facility] Comment on above: Performed By: #### V [id number] #### [facility] [address] [place] [address] Dr. Helio Cee Urea nitrogen/Creatinine [Mass ratio] 22.0 mg/mg Normal [facility] Comment on above: Performed By: #### V [id number] #### [facility] [address] [place] [address] Dr. Helio Cee TSHon 10-25-2021 TSH 0.635 uIU/mL Normal 0.358-3.740 [facility] Comment on above: Performed By: #### V [id number] #### [facility] [address] [place] [address] Dr. Helio Cee Vital Signs Date Time Vital Sign Value Performing Clinician Facility 12-25-2023 12:37-0400 Blood Pressure Location BRENDA MARIN [facility] 12-25-2023 12:37-0400 Body temperature 98.6 [degF] BRENDA MARIN [facility] 12-25-2023 12:37-0400 Diastolic blood pressure 86 mm[Hg] BRENDA MARIN [facility] 12-25-2023 12:37-0400 Heart rate 70 /min BRENDA MIAH [facility] 12-25-2023 12:37-0400 Respiratory rate 16 /min BRENDA MIAH [facility] 12-25-2023 12:37-0400 Systolic blood pressure 137 mm[Hg] BRENDA MIAH [facility] 09-26-2023 15:39-0400 Blood Pressure Location BRENDA MIAH [facility] 09-26-2023 15:39-0400 Diastolic blood pressure 84 mm[Hg] BRENDA MIAH [facility] 09-26-2023 15:39-0400 Heart rate 68 /min BRENDA MIAH [facility] 09-26-2023 15:39-0400 Respiratory rate 16 /min BRENDA MIAH [facility] 09-26-2023 15:39-0400 Systolic blood pressure 132 mm[Hg] BRENDA MIAH [facility] 08-28-2023 14:59-0400 Blood Pressure Location BRENDA MIAH [facility] 08-28-2023 14:59-0400 Body temperature 98.24 [degF] BRENDA MIAH [facility] 08-28-2023 14:59-0400 Diastolic blood pressure 80 mm[Hg] BRENDA MIAH [facility] 08-28-2023 14:59-0400 Heart rate 92 /min BRENDA MIAH [facility] 08-28-2023 14:59-0400 Respiratory rate 16 /min BRENDA MIAH [facility] 08-28-2023 14:59-0400 Systolic blood pressure 132 mm[Hg] BRENDA MIAH [facility] 06-05-2023 12:55-0500 Blood Pressure Location BRENDA MIAH [facility] 06-05-2023 12:55-0500 Diastolic blood pressure 88 mm[Hg] BRENDA MIAH [facility] 06-05-2023 12:55-0500 Heart rate 74 /min BRENDA MIAH [facility] 06-05-2023 12:55-0500 Respiratory rate 16 /min BRENDA MIAH [facility] 06-05-2023 12:55-0500 Systolic blood pressure 134 mm[Hg] BRENDA MIAH [facility] 04-30-2023 15:30-0500 Body height 161.29 cm Jeremiah Reed Other [employer] Other 04-30-2023 15:30-0500 Body mass index (BMI) [Ratio] 35.29 kg/m2 Jeremiah Reed Other [facility] Other 04-30-2023 15:30-0500 Body weight 91.81 kg Jeremiah Reed Other [facility] Other 04-30-2023 15:30-0500 Diastolic blood pressure 74 mm[Hg] Jeremiah Reed Other [facility] Other 04-30-2023 15:30-0500 Systolic blood pressure 109 mm[Hg] Jeremiah Reed Other [facility] Other 04-13-2023 14:40-0500 Hourly Rounding [facility] 04-13-2023 14:40-0500 Promise to Return [facility] 04-13-2023 13:00-0500 Diastolic blood pressure 77 mm[Hg] [facility] 04-13-2023 13:00-0500 Heart rate 78 /min [facility] 04-13-2023 13:00-0500 Hour[facility] Rounding [facility] 04-13-2023 13:00-0500 Promise to Return [facility] 04-13-2023 13:00-0500 Respiratory rate 16 /min [facility] 04-13-2023 13:00-0500 Systolic blood pressure 127 mm[Hg] [facility] 04-13-2023 12:13-0500 Heart rate 80 /min [facility] 04-13-2023 12:13-0500 SaO2% (BldA) [Mass fraction] 95 % [facility] 04-13-2023 12:12-0500 Body temperature 97.16 [degF] [facility] 04-13-2023 12:11-0500 Diastolic blood pressure 78 mm[Hg] [facility] 04-13-2023 12:11-0500 Mean blood pressure 94 mm[Hg] [facility] 12:11-0500 Systolic blood pressure 125 mm[Hg] [facility] 04-13-2023 12:00-0500 Hourly Rounding [facility] 04-13-2023 12:00-0500 Promise to Return [facility] 04-13-2023 09:10-0500 Diastolic blood pressure 70 mm[Hg] [facility] 04-13-2023 09:10-0500 Heart rate 87 /min [facility] 04-13-2023 09:10-0500 Mean blood pressure 90 mm[Hg] [facility] 04-13-2023 09:10-0500 Respiratory rate 17 /min [facility] 04-13-2023 09:10-0500 Systolic blood pressure 130 mm[Hg] [facility] 04-13-2023 08:00-0500 SaO2% (BldA) [Mass fraction] 93 % [facility] 04-13-2023 07:29-0500 Heart rate 89 /min [facility] 04-13-2023 07:29-0500 SaO2% (BldA) [Mass fraction] 94 % [facility] 04-13-2023 07:29-0500 Mean blood pressure 88 mm[Hg] [facility] 04-13-2023 07:29-0500 Body temperature 97.88 [degF] [facility] 04-13-2023 05:00-0500 Blood Pressure Location [facility] 04-13-2023 05:00-0500 Heart rate 95 /min [facility] 04-13-2023 05:00-0500 Mean blood pressure 100 mm[Hg] [facility] 04-13-[facility]23 00:18-0500 Blood Pressure Location [facility] 04-13-2023 00:18-0500 Body temperature 97.52 [degF] [facility] 04-12-2023 20:33-0500 Body temperature 97.34 [degF] [facility] 04-12-2023 20:33-0500 Mean blood pressure 88 mm[Hg] [facility] 04-12-2023 18:03-0500 Blood Pressure Location [facility] 04-12-2023 16:49-0500 Respiratory rate 22 /min [facility] 04-12-2023 15:00-0500 Respiratory rate 20 /min [facility] 04-12-2023 12:24-0500 gluc 88 mg/dL [facility] 04-12-2023 12:24-0500 gluc [facility] 04-12-2023 12:19-0500 Body temperature 97.7 [degF] [facility] 03-29-2023 15:30-0500 Body height 161.29 cm Jeremiah Reed Other [facility] [email or web address] Other 03-29-2023 15:30-0500 Body mass index (BMI) [Ratio] 37.14 kg/m2 Jeremiah Reed Other [employer] [facility] [email or web address] Other 03-29-2023 15:30-0500 Body weight 96.62 kg Jeremiah Reed Other [facility] Other 03-29-2023 15:30-0500 Diastolic blood pressure 85 mm[Hg] Jeremiah Reed Other [facility] Other 03-29-2023 15:30-0500 Systolic blood pressure 144 mm[Hg] Jeremiah Derek Other [facility] Other 06-21-2022 14:42-0500 Blood Pressure Location BRENDA MARIN [facility] Encounters Encounter Date Encounter Type Care Provider Facility Start: 12-27-2023 End: 12-27-2023 Patient encounter procedure BRENDAROSA ELENA MARIN [facility] Start: 12-25-2023 End: 12-25-2023 ambulatory BRENDAROSA ELENA MARIN Facility:[facility] Start: 12-25-2023 End: 12-25-2023 Patient encounter procedure BRENDAROSA ELENA MARIN [facility] Start: 12-03-2023 End: 12-03-2023 ambulatory Cayden ROBB Facility:[facility] Start: 12-03-2023 End: 12-03-2023 Patient encounter procedure Cayden ROBB [facility] Start: 11-26-2023 End: 11-26-2023 ambulatory Alexandro CARMONA Facility:[facility] Start: 11-26-2023 End: 11-26-2023 Patient encounter procedure Alexandro CARMONA [facility] Start: 11-08-2023 End: 11-08-2023 ambulatory DIDIER MALDONADO Not Available Start: 10-29-2023 End: 10-29-2023 ambulatory Drake Delatorre MD Facility:[facility] Start: 10-15-2023 End: 10-15-2023 ambulatory Drake Delatorre MD Facility:[facility] Start: 09-26-2023 End: 09-26-2023 ambulatory BRENDA E MIAH Facility:[facility] Start: 09-26-2023 End: 09-26-2023 Patient encounter procedure BRENDA MARIN [facility] Start: 09-17-2023 End: 09-17-2023 ambulatory Drake Delatorre MD Facility:[facility] Start: 08-30-2023 End: 08-30-2023 ambulatory DIDIER MALDONADO Not Available Start: 08-28-2023 End: 08-28-2023 ambulatory BRENDA Zulema MIAH Facility:[facility] Start: 08-28-2023 End: 08-28-2023 Patient encounter procedure BRENDA MARIN [facility] Start: 07-23-2023 End: 07-23-2023 ambulatory Cayden ROBB Facility:[facility] [place] Start: 07-23-2023 End: 07-23-2023 Patient encounter procedure Cayden ROBB [facility] Start: 07-09-2023 End: 07-09-2023 ambulatory BRENDA MARIN Facility:[facility] [place] Start: 06-20-2023 End: 06-20-2023 ambulatory Jeremiah Reed Other [facility] Other Start: 06-20-2023 Telephone encounter Jeremiah Reed [facility] Start: 06-05-2023 End: 06-05-2023 ambulatory BRENDA MARIN Facility:[facility] [place] Start: 06-05-2023 End: 06-05-2023 Lab Drop off BRENDA Zulema SOLIMANRY [facility] Start: 06-05-2023 End: 06-05-2023 ambulatory BRENDA Zulema MIAH Facility:[facility] Start: 06-05-2023 End: 06-05-2023 Patient encounter procedure BRENDA MARIN [facility] Start: 04-30-2023 End: 04-30-2023 ambulatory Jeremiah Reed Other [facility] Other Start: 04-30-2023 Office outpatient vi sit 25 minutes Jeremiah Reed [facility] Start: 04-30-2023 Telephone encounter Jeremiah Reed [facility] Start: 04-17-2023 End: 04-17-2023 ambulatory Jeremiah Reed Other [facility] Other Start: 04-17-2023 Telephone encounter Jeremiah Reed [facility] Start: 04-13-2023 End: 04-13-2023 ambulatory Ray Fofana Other [facility] Other Start: 04-13-2023 Telephone encounter Ray Cowaney [facility] Start: 04-12-2023 End: 04-13-2023 ambulatory Efrain Kurtz Facility:[facility] [place] Start: 04-12-2023 End: 04-13-2023 Observation Efrain Kurtz [facility] Start: 04-09-2023 End: 04-09-2023 ambulatory Drake Delatorre MD Facility:[facility] Start: 03-30-2023 End: 03-30-2023 ambulatory Jeremiah Reed Other [facility] Other Start: 03-30-2023 Telephone encounter Jeremiah Reed [facility] Start: 03-29-2023 End: 03-29-2023 ambulatory Jeremiah Reed Other [facility] Other Start: 03-29-2023 Transitional care manage srvc 14 day discharge Jeremiah Reed [facility] Start: 03-05-2023 End: 03-05-2023 ambulatory Drake Delatorre MD Facility:[facility] Start: 02-05-2023 End: 02-05-2023 ambulatory Drake Delatorre MD Facility:[facility] Start: 01-08-2023 End: 01-08-2023 ambulatory Drake Delatorre MD [facility] Start: 12-25-2022 End: 12-25-2022 ambulatory Drake Delatorre MD Facility:[facility] Start: 09-01-2022 End: 09-02-[address] JEREMIAH REED Facility:[facility] Start: 08-29-2022 End: 08-30-2022 ambulatory BARBARA WAGNERMIPATHY . Facility:[facility] Start: 08-21-2022 End: 08-22-[address] EHSAN MILLER Facility:[facility] Start: 08-10-2022 End: 08-11-2022 ambulatory BRENT MALDONADO Facility:[facility] Start: 06-21-2022 End: 06-21-2022 Patient encounter procedure BRENDA MARIN [facility] Start: 06-12-2022 End: 06-13-[address] [...] Radha Dong Work Phone: [facility] Start: 08-21-2018 End: 08-21-2018 Patient encounter procedure Radha Kosta Clinjaziel Work Phone: [facility] Start: 06-28-2018 End: 06-28-2018 Patient encounter procedure Radha L Clinker Work Phone: [facility] Procedures Date Procedure Procedure Detail Performing Clinician Start: 12-03-2023 Cystoscopy BRENDA Gunjan ERRNathan Start: 07-23-2023 Cystourethroscopy wi th dilation of urethral stricture BRENDAROSA ELENA MARIN Start: 06-16-2016 Cystourethroscopy wi th dilation of urethral stricture BRENDAPRATIMA MARIN Appendectomy BRENDA MARIN Biopsy of breast BRENDA DAVE RRY Hysterectomy BRENDA MARIN Plan of Treatment Date Care Activity Detail Author Start: 10-26-2022 ambulatory Ambulatory Facility:[facility] Start: 01-12-2019 Influenza vaccination INFLUENZ A VACCINE (Season Ended) [facility] Start: 01-12-2018 Influenza vaccination INFLUENZA VACC INE (#1) [facility] Start: 02-10-2012 Pneumococcal vaccination PNEUM OCOCCAL VACCINE SERIES (1 of 2 - PCV13) [facility] Start: 1997 Protein mass conc COLON CANCER SCREENING DISCUSSION [facility] Start: 1997 Zoster vaccine hzv l derrell for subcutaneous use ZOSTER (SHINGLES) VACCINE (1 of 2) [facility] Start: 1987 Fasting lipid profile LIPID SCREENIN G [facility] Start: 1987 Protein mass conc MAMMOGRAM SC REENING DISCUSSION [facility] Start: 02-10-1968 Screening for malign ant neoplasm of cervix PAP SMEAR DISCUSSION [facility] Start: 1966 Third diphtheria, te tanus and acellular pertussis (DTaP) vaccination TDAP (ADULT) [facility] Start: 1965 Tetanus vaccination TETANUS [facility] Start: 1947 Hepatitis C antibody , confirmatory test HEPATITIS C VIRUS SCREENING [facility] Start: 1947 Screening for osteoporosis DEXA SCAN DISCUSSION [facility] Immunizations Immunization Date Immunization Notes Care Provider [facility] 03-31-2021 SARS-CoV-2 (COVID-19 ) mRNA BNT-162b2 vax BRENDA MARIN [facility] 07-21-2020 SARS-CoV-2 (COVID-19 ) Ad26 vaccine, recombinant BRENDA MARIN [facility] 04-11-2020 influenza virus vaccine, unspecified formulation BRENDA MARIN [facility] 02-02-2011 influenza virus vaccine, unspecified formulation BRENDA MIAH [facility] Payers Date Payer Category Payer Medicare 2022 Unknown 1959 Medicare [id number] 1957 Unknown [id number] 1947 Unknown [id number] 2.16.84 0.1.728014.3.579.2.593 1947 Unknown [id number] 2.16.84 0.1.822408.3.579.2.593 1947 Unknown [id number] 2.16.84 0.1.033734.3.579.2.593 1947 Unknown [id number] 2.16.84 0.1.915715.3.579.2.593 1947 Unknown [id number] 2.16.84 0.1.788003.3.579.2.593 1947 Unknown [id number] 2.16.84 0.1.663404.3.579.2.593 1947 Unknown [id number] 2.16.84 0.1.223718.3.579.2.593 1947 Unknown [id number] 2.16.84 0.1.149109.3.579.2.593 1947 Unknown [id number] 2.16.84 0.1.381873.3.579.2.593 1947 Unknown [id number] 2.16.84 0.1.152954.3.579.2.593 1947 Unknown [id number] 2.16.84 0.1.300764.3.579.2.593 1947 Unknown [id number] 2.16.84 0.1.703457.3.579.2.593 1947 Unknown [id number] 2.16.84 0.1.053432.3.579.2.593 1947 Unknown [id number] 2.16.84 0.1.080472.3.579.2.593 1947 Unknown [id number] 2.16.84 0.1.671018.3.579.2.593 1947 Unknown [id number] 2.16.84 0.1.637492.3.579.2.593 1947 Unknown [id number] 2.16.84 0.1.361638.3.579.2.593 1947 Unknown [id number] 2.16.84 0.1.026716.3.579.2.593 1947 Unknown [id number] 2.16.84 0.1.413003.3.579.2.593 1947 Unknown [id number] 2.16.84 0.1.383452.3.579.2.593 1947 Unknown [id number] 2.16.84 0.1.760603.3.579.2.593 1947 Unknown [id number] 2.16. 840.1.050217.3.579.2.196 1947 Unknown [id number] 2.16. 840.1.122886.3.579.2.196 1947 Unknown [id number] 2.16. 840.1.797925.3.579.2.196 1947 Unknown [id number] 2.16. 840.1.745993.3.579.2.196 1947 Unknown [id number] 2.16. 840.1.542938.3.579.2.196 1947 Unknown [id number] 2.16. 840.1.270135.3.579.2.196 1947 Unknown [id number] 2.16. 840.1.189815.3.579.2.196 1947 Unknown [id number] 2.16. 840.1.937879.3.579.2.196 1947 Unknown [id number] 2.16.84 0.1.968566.3.579.2.1259 1947 Unknown [id number] 2.16.84 0.1.245687.3.579.2.1259 1947 Unknown [id number] 2.16.8 40.1.054552.3.579.2.727 1947 Unknown [id number] 2.16.8 40.1.042882.3.579.2.727 1947 Unknown [id number] 2.16.8 40.1.078781.3.579.2.727 1947 Unknown [id number] 2.16.8 40.1.232776.3.579.2.727 1947 Unknown [id number] 2.16.8 40.1.541315.3.579.2.727 1947 Unknown [id number] 2.16.8 40.1.578349.3.579.2.727 1947 Unknown [id number] 2.16.8 40.1.810686.3.579.2.72 1947 Unknown [id number] 2.16.8 40.1.537868.3.579.2.727 1947 Unknown [id number] 2.16.8 40.1.915747.3.579.2.727 1947 Unknown [id number] 2.16.8 40.1.954120.3.579.2.727 1947 Unknown [id number] 2.16.8 40.1.349520.3.579.2.727 Social History Date Type Detail [facility] Sex Assigned At Not on file [facility] Start: 02-03-2021 End: 12-25-2023 Tobacco smoking status Ex-smoker (finding) [facility] Sex Assigned At Female [facility] Tobacco smoking status Never [facility] Functional Status Date Assessment Result Facility 12-25-2023 Functional Status N/A [facility] 12-03-2023 Functional Status N/A [facility] 09-26-2023 Functional Status N/A [facility] 08-28-2023 Functional Status N/A [facility] 06-05-2023 Functional Status N/A [facility] 04-12-2023 Functional Status N/A [facility] 04-12-2023 Functional Status [facility] 06-21-2022 Functional Status N/A [facility] Clinical Notes 01-12-2013 to 12-25-2023 Note Date & Type Note Facility 12-25-2023 Hospital Discharg e instructions Patient Education 12/25/2023 13:05:34 Injection Treatments for Urinary Incontinence, Care After Injection Treatments for Urinary Incontinence, Care After The following information offers guidance on how to care for yourself after your procedure. Your health care provider may also give you more specific instructions. If you have problems or questions, contact your health care provider. What can I expect after the procedure? After this procedure, it is common to have: Trouble passing urine. A small amount of blood in your urine. A burning or stinging sensation when passing urine. No improvement in your urinary incontinence for a few weeks. Follow these instructions at home: Catheter care If you have a urinary catheter in place, follow care instructions from your health care provider. You may be told to do the following things: Wash your hands with soap and water for at least 20 seconds before and after touching the catheter. Keep the area around the catheter clean and dry. Make sure that the catheter drainage bag is always below the level of your bladder. This stops urine from going back into the tubing and into your bladder. ?If using a bedside bag, do not lay it on the floor. If you cannot connect the bag to the side of your bed, hang the bag on a small stool or chair that is placed near the bed. ?If using a leg bag or belly bag, do not lie down with the bag attached to your leg or stomach. ?If using a leg bag, secure the tubing from your catheter to the leg bag with a small, stretchable wrap. This helps prevent the tubing from being pulled. Empty the catheter drainage bag when it is three-fourths full. Monitor the amount and color of your urine. Check to make sure that there are no twists, bends, or kinks in the catheter tube. Visit your health care provider to have the catheter removed. Medicines Take tnal-rqw-gqluqhf and prescription medicines only as told by your health care provider. If you were prescribed an antibiotic medicine, take it as told by your health care provider. Do not stop taking the antibiotic even if you start to feel better. General instructions Drink enough fluid to keep your urine pale yellow. Do not take baths, swim, or use a hot tub if you have a urinary catheter in place. If you were given a sedative during the procedure, it can affect you for several hours. Do not drive or operate machinery until your health care provider says that it is safe. Return to your normal activities as told by your health care provider. Ask your health care provider what activities are safe for you. Keep all follow-up visits. This is important. Contact a health care provider if you have: Blood in your urine for longer than a few days. Pain when passing urine that lasts for longer than a few days. A strong and uncomfortable urge to pass urine (urgency). Incontinence that does not improve after a few weeks. Get help right away if: You have a fever. You cannot urinate. You have cloudy or bad-smelling urine. You have pain when passing urine, and the pain is getting worse. You have pain in your lower back, also called the flank. You have a lot of blood in your urine. Summary After this procedure, it is common to have trouble passing urine and to have a small amount of blood in your urine. Your incontinence should improve in a few weeks. If you have a urinary catheter in place, follow care instructions from your health care provider. Return to your normal activities as told by your health care provider. This information is not intended to replace advice given to you by your health care provider. Make sure you discuss any questions you have with your health care provider. Document Revised: 12/16/2020 Document Reviewed: 12/03/2020 [employer] Patient Education 2022 [employer]. Follow Up Care 12/03/2023 14:36:32 With:BRENDA MARIN PA-C, URL Address: [address] [place] [address] [phone] When: Unknown [facility] 12-25-2023 Note Patient Education Urology Injection Treatments for Urinary Incontinence, Care After The following information offers guidance on how to care for yourself after your procedure. Your health care provider may also give you more specific instructions. If you have problems or questions, contact your health care provider. What can I expect after the procedure? After this procedure, it is common to have: ? Trouble passing urine. ? A small amount of blood in your urine. ? A burning or stinging sensation when passing urine. ? No improvement in your urinary incontinence for a few weeks. Follow these instructions at home: Catheter care If you have a urinary catheter in place, follow care instructions from your health care provider. You may be told to do the following things: ? Wash your hands with soap and water for at least 20 seconds before and after touching the catheter. ? Keep the area around the catheter clean and dry. ? Make sure that the catheter drainage bag is always below the level of your bladder. This stops urine from going back into the tubing and into your bladder. ? If using a bedside bag, do not lay it on the floor. If you cannot connect the bag to the side of your bed, hang the bag on a small stool or chair that is placed near the bed. ? If using a leg bag or belly bag, do not lie down with the bag attached to your leg or stomach. ? If using a leg bag, secure the tubing from your catheter to the leg bag with a small, stretchable wrap. This helps prevent the tubing from being pulled. ? Empty the catheter drainage bag when it is three-fourths full. Monitor the amount and color of your urine. ? Check to make sure that there are no twists, bends, or kinks in the catheter tube. ? Visit your health care provider to have the catheter removed. Medicines ? Take ubcf-ulc-gqotcyj and prescription medicines only as told by your health care provider. ? If you were prescribed an antibiotic medicine, take it as told by your health care provider. Do not stop taking the antibiotic even if you start to feel better. General instructions ? Drink enough fluid to keep your urine pale yellow. ? Do not take baths, swim, or use a hot tub if you have a urinary catheter in place. ? If you were given a sedative during the procedure, it can affect you for several hours. Do not drive or operate machinery until your health care provider says that it is safe. ? Return to your normal activities as told by your health care provider. Ask your health care provider what activities are safe for you. ? Keep all follow-up visits. This is important. Contact a health care provider if you have: ? Blood in your urine for longer than a few days. ? Pain when passing urine that lasts for longer than a few days. ? A strong and uncomfortable urge to pass urine (urgency). ? Incontinence that does not improve after a few weeks. Get help right away if: ? You have a fever. ? You cannot urinate. ? You have cloudy or bad-smelling urine. ? You have pain when passing urine, and the pain is getting worse. ? You have pain in your lower back, also called the flank. ? You have a lot of blood in your urine. Summary ? After this procedure, it is common to have trouble passing urine and to have a small amount of blood in your urine. ? Your incontinence should improve in a few weeks. ? If you have a urinary catheter in place, follow care instructions from your health care provider. ? Return to your normal activities as told by your health care provider. This information is not intended to replace advice given to you by your health care provider. Make sure you discuss any questions you have with your health care provider. Document Revised: 12/16/2020 Document Reviewed: 12/03/2020 [employer] Patient Education ? 2022 [employer]. [facility] 12-03-2023 Hospital Discharg e instructions Patient Education 12/03/2023 14:10:12 EU - Cystoscopy with Botox Injection Discharge Instructions (Custom) Cystoscopy with Botox injection Voiding after the procedure: there may be some pain, burning, urgency, frequency and blood tinged urine following the procedure. These symptoms usually resolve within 2-5 days. Drink the amount of fluid it takes to keep the urine pink to yellow or clear in color. Drinking enough water and fluids will help to ease any discomfort after your procedure. It may take a few days to a week to notice a gradual improvement in the overactive bladder symptoms. If you are having problems that seem out of the ordinary, please call. If unable to contact your physician and you feel it is an emergency, go to the nearest emergency room or call 911 Do not lift more than fifteen pounds for 1-2 days. If you see a lot of blood, you probably did too much. Diet you may resume your normal diet. Pain control You may take extra strength Tylenol or Motrin for discomfort. Call if you have a fever over 100 degrees. Follow Up Care 10/01/2023 15:36:12 With:BRENDA MARIN Address: [address] [place] [address] Business (1) When: Unknown Comments:Call for followup appointment with Georgette Marin PA-C within the next three weeks or so. Push fluids to keep the urine clear. Expect the Botox to start working within the next 2-3 weeks. Have a great day! [facility] 12-03-2023 Note Patient Education Cystoscopy with Botox injection ? Voiding after the procedure: there may be some pain, burning, urgency, frequency and blood tinged urine following the procedure. These symptoms usually resolve within 2-5 days. Drink the amount of fluid it takes to keep the urine pink to yellow or clear in color. Drinking enough water and fluids will help to ease any discomfort after your procedure. ? It may take a few days to a week to notice a gradual improvement in the overactive bladder symptoms. ? If you are having problems that seem out of the ordinary, please call. ? If unable to contact your physician and you feel it is an emergency, go to the nearest emergency room or call 911 ? Do not lift more than fifteen pounds for 1-2 days. If you see a lot of blood, you probably did too much. ? Diet ? you may resume your normal diet. ? Pain control ? You may take extra strength Tylenol or Motrin for discomfort. ? Call if you have a fever over 100 degrees. [facility] 09-26-2023 Hospital Discharg e instructions Patient Education [...] including vitamins, herbs, eye drops, creams, and orbx-wiu-lyeczzk medicines. Any problems you or family members [...] provider tells you to take them. Taking lwrg-ndd-kxcldba medicines, vitamins, herbs, and supplements. General instructions [...] Follow these instructions at home: Medicines Take nxey-izf-lzwyhdj and prescription medicines only as told by [...] provider. Document Revised: 11/04/2021 Document Reviewed: 11/04/2021 [employer] Patient Education 2022 [employer]. Follow Up Care 08/30/2023 10:04:37 With:BRENDA MARIN PA-C, URL Address: [address] [place] [id number] [phone] When: Unknown Comments:flaquita dietz MD [facility] 08-28-2023 Hospital Discharg e instructions Patient Education [...] your health care provider. General instructions Take ltur-wwi-ydsyveu and prescription medicines only as told by [...] provider. Document Revised: 01/17/2021 Document Reviewed: 01/17/2021 [employer] Patient Education 2022 [employer]. Follow Up Care 07/23/2023 14:35:57 With:MIAH ORE, BRENDA Poole, URL Address: [address] [place] [address] Business (1) When:6 weeks [facility] 07-23-2023 Hospital Discharg e instructions Patient Education [...] Up Care 06/11/2023 13:39:28 With:BRENDA MARIN Address: [address] [place] [address]. [place] [address] Business (1) When: Unknown Comments:Call for followup appointment with Georgette Marin PA-c within the next 2 months or so to monitor you. Please finish your antibiotics and have a great day. [facility] 07-23-2023 Note [phone] [id number] [facility] 07-23-2023 Note Cystoscopy with Uret hral [...] you have a fever over 100 degrees [facility] 06-20-2023 Evaluation note Encounter Date Diagnosis Assessment Notes Jun, Essential (primary) hypertension (ICD-10 - I10) [facility] 01-23-2024 Hospital Discharge instructions Patient Education [...] reconstructed. Follow these instructions at home: Take svje-gfl-dhwxyaz and prescription medicines only as told by [...] provider. Document Revised: 03/07/2022 Document Reviewed: 03/07/2022 [employer] Patient Education 2022 [employer]. Follow Up Care 06/21/2022 15:14:52 With:CEZAR BERNAL, Cayden Hollins, URL Address: [address] [place] [address] [place], [place] [id number]- When: Unknown [facility] 01-23-2024 Evaluation + Plan note Diagnostic Tests Pending * Urine Culture 06/05/23 [facility]12-18-2023 Evaluation note* Encounter Date Diagnosis [...] symptoms. Any developing patterns. Stay well hydrated. [facility] 12-01-2023 NoteChief Complaint pt arrives via [facility] after being found outside by a neighbor without a shirt on. pt is a/o to self and place, not time. FSBS upon arrival 88. Pt was recently treated for UTI @[facility] pt. denies fall, was found sitting down. History of Present Illness 78-year-old female with PMH reformed smoker, HTN, anxiety, depression, peripheral neuropathy, GERD, OAB, obesity. -Patient presented to the ED secondary to confusion. -Per ED physician patient was recently in [facility] and treated for a UTI [...] Lymph Auto: 9.7 % Low (04/12/23 12:53:00) Petroleum Auto: 7.8 % (04/12/23 12:53:00) Eos Auto: 0.1 % (04/12/23 12:53:00) Basophil Auto: 0.4 % (04/12/23 12:53:00) Neutro Absolute: 12.4 E9/L High (04/12/23 12:53:00) Lymph Absolute: 1.5 E9/L (04/12/23 12:53:00) Petroleum Absolute: 1.2 E9/L High (04/12/23 12:53:00) Eos [...] 88 mg/dL (04/12/23 12:23:00) POC Device SN: [id number] (04/12/23 12:23:00) POC User ID: (more content not included)...[facility] CenterComment on above:Result Comment: Electronically Signed By: TITI MITCHELL, Radha\.br\Date and Time Signed: 04/12/23 16:29 EST\.br\Electronically Co-Signed By: TITI MITCHELL Radha\.br\Date and Time Co-Signed: 04/12/23 16:37 EST\.br\Electronically Co-Signed By: TITI MITCHELL Radha\.br\Date and Time Co-Signed: 04/12/23 16:58 EST\.br\Electronically Co-Signed By: Tessie BERNAL, Efrain\.br\Date and Time Co-Signed: 04/13/23 16:43 [id number] NoteAdmission and Discharge Information Admitting Physician - [...] willbe reviewed and discussed with PCP or consulting hr professional MD once the hospital electric dolly operator is able to reach him/her. I [...] made to ensure accuracy, however, inadvertently computerized accounts receivable executive mistakes may be present. Significant Findings CT [...] spine, with routine reconst (more content not included)...[facility]:Result Comment: Electronically Signed By: Radha TAYLOR\.br\Date and Time Signed: 04/13/23 10:54 EST\.br\Electronically Co-Signed By: Radha TAYLOR\.br\Date and Time Co-Signed: 04/13/23 10:57 EST\.br\Electronically Co-Signed By: Radha TAYLOR\.br\Date and Time Co-Signed: 04/13/23 10:58 EST\.br\Electronically Co-Signed By: Radha TAYLOR\.br\Date and Time Co-Signed: 04/13/23 10:59 EST\.br\Electronically Co- Signed By: Radha TAYOLR\.br\Date and Time Co-Signed: 04/13/23 13:55 EST\.br\Electronically Co-Signed By: Tessie BERNAL, Ahmad\.br\Date and Time Co- Signed: 04/13/23 16:37 [id number] Evaluation + Plan noteExtracted from: Title:Discharge Note Author:TITI AGACNP-BC, Re nee Date:04/13/23 Hemodynamically stable resul ts Discharged to [...] Oral, Daily With When Contact Information [facility] Additional Instructions: Call for followup appointment for anxiety/depression care. Gerald Nolasco Within 1 to [address], [place] [address]- Business (1) Additional Instructions: JEREMIAH REED Within 2 to 4 days [address] [place] [address]- Business (1) Additional Instructions: Confusion Extracted from: [...] deep vein thrombosis (DVT) prophylaxis (Z79.899: Other intermediate manager (current) drug therapy) Depression, unspecified (F32.A: [...] deep vein thrombosis (DVT) prophylaxis (Z79.899: Other intermediate (current) drug therapy) Depression, unspecified (F32.A: Depression, [...] Cr - unknown - awaiting records from [facility] -Renal US & PVR - [...] deep vein thrombosis (DVT) prophylaxis (Z79.899: Other intermediate manager (current) drug therapy) -Heparin sq with [...] made to ensure accuracy, however, inadvertently computerized accounts receivable executive mistakes may be present. Future Appointments Appointment Date:06/05/2023 01:00:00 PM Scheduled Provider:BRENDA MARIN PA-C Location:[facility] Appointment Type:URO Office Visit [facility]12-01-2023 Hospital Discharge instructions Patient Education 04/13/2023 10:40:43 [...] friend for help if needed. Medicines Take lfoc-ezl-sqzcwja and prescription medicines only as told by [...] consider day care, extended-care programs, or a halfway facility. The person's health care provider may [...] provider. Document Revised: 08/24/2020 Document Reviewed: 08/24/2020 [employer] Patient Education 2022 [employer]. Follow Up Care 04/12/2023 12:15:50 With:Ehsan Blair MD, NEU Address: [address] [address]- When:1 to 2 weeks Comments:This office is closed on Fridays. Please call the office on Sunday April 16, 2023 for a follow upappiontment. Thank you. With:JEREMIAH REED Address: [address] [place] [address] [facility] (1) When:2 to 4 days Comments:Call for followup appointment With:[facility] Address:Unknown When: Unknown Comments:Call for followup appointment for anxiety/depression care. [facility]12-01-2023 NoteChief Complaint AMS Reason for [...] Patient is alert and is oriented to [facility] and April and said 1921 but corrected [...] deep vein thrombosis (DVT) prophylaxis (Z79.899: Other intermediate manager (current) drug therapy) Depression, unspecified (F32.A: [...] 2 tab(s), Oral, q6hr, PRN Afrin 0.05% Flippin, 2 s (more content not included)...[facility] Comment on above:Result Comment: Electronically Signed By: Kamala Jolly RN\.br\Date and Time Signed: 04/13/23 09:19 EST\.br\Electronically Co- Signed By: Gerald Nolasco DO\.br\Date and Time Co-Signed: 04/13/23 11:28 EST 04-13-2023 NotePT Evaluation done this date. Pt. with on AM-PAC this date. Recommend she use FWW for gait aswith cane she reaches for objects to hang onto with other hand. Will likely benefit from home health PT.[facility]11-17-2023 Evaluation note* Encounter Date Diagnosis Assessment Notes Treatment Notes Treatment Clinical Notes Mar, Colon cancer screening (ICD-10 - Z12.11) [facility] 11-16-2023 Evaluation note* Encounter Date Diagnosis Assessment Notes Treatment Notes Treatment Clinical Notes Mar, Generalized weakness (ICD-10 - R53.1) Followup as scheduled w ortho and PT Mar, COPD, moderate (ICD-10 - J44.9) continue present medication reviewed ER report from observation status [facility] 03-30-2023 NoteCONSULTATION CONSULTATION DATE: 08/10/2022 TO: [...] weeks' time or sooner if needed. [id number] NoteCONSULTATION PROCEDURE DATE: 08/10/2022 PROCEDURE: Right suprascapular [...] reduction in her pain symptoms post procedurally.[facility] [id number] Hospital Discharge instructions Patient Education 06/21/2022 14:35:24 [...] fried and sweet foods. General instructions Take kdfg-svf-qsuntof and prescription medicines only as told by [...] 02/24/2010 Document Revised: 08/21/2019 Document Reviewed: 05/16/2018 [employer] Patient Education 2020 [employer]. Follow Up Care 05/19/2021 14:10:29 With:MIAH ROE, BRENDA Poole, URL Address: [address] [place], [place] [address] [address] When: Unknown [facility] 12-29-2022 NoteCONSULTATION CONSULTATION DATE: 05/11/2022 HISTORY [...] the diclofenac. 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 [...] in three months' time unless otherwise indicated.[facility] [id number] NoteCONSULTATION CONSULTATION DATE: 02/23/2022 This is a [...] in three months' time unless otherwise indicated.[facility] [id number] NoteCONSULTATION CONSULTATION DATE: 01/08/2022 HISTORY OF PRESENT [...] followed up in the office post procedure.[facility] [id number] Note CONSULTATION CONSULTATION DATE: 12/07/2021 HISTORY OF [...] and patient would like to proceed. [facility] [id number] History general Narrative - Reported* Type Description Date Medical History Chronic back pain Medical History HTN Medical History anxiety Medical History DJD Medical History osteoporosis Surgical History Lumbar laminectomy and fusion 9 /2013 Surgical History Hysterectomy (spared L ovary) Surgical History Landaverde's neuroma Hospitalization History For surgery as above Hospitalization History TB 03/2023 [facility] [email or web address] Other Evaluation + Plan note Future Appointments Appointment Date:06/26/2023 02:30:00 PM Scheduled Provider:BRENDA MARIN PA-C Location:[facility] Appointment Type:URO Office Visit [facility] evaluation + Plan note Future Appointments Appointment Date:08/28/2023 03:00:00 PM Scheduled Provider:BRENDA MARIN PA-C Location:[facility]ointment [facility] Future Appointments Appointment Date:11/27/2023 11:00:00 AM Scheduled Provider: Location:[facility] Appointment Type:Urology CALL PAT FT Appointment Date:12/03/2023 02:00:00 PM Scheduled Provider: Location:[facility] Appointment Type:Urology FT [facility] [employer] evaluation + Plan note Future Appointments Appointment Date:12/25/2023 12:40:00 PM Scheduled Provider:BRENDA MARIN PA-C Location:[facility] Appointment Type:URO Office Visit [facility] noteNo InformationNortEncompass Health [email or web address] Other Hospital course Narrative No data available for this section [facility] [employer] Hospital Discharge instructions No data available for this section [facility] No data available for this section [facility] Summary Purpose Family History No Family History [...] Personnel Name: JEREMIAH REED MD Address: Address: [address] [place] [address] Personnel Name: JEREMIAH REED MD Address: Address: [address] [place] [address] Personnel Name: JEREMIAH REED MD Address: Address: [address] [place] [address] Personnel Name: JEREMIAH REED MD Address: Address: [address] [place] [address] Personnel Name: JEREMIAH REED MD Address: Address: [address] [place] [address] Personnel Name: JEREMIAH REED MD Address: Address: [address] [place] [address] Personnel Name: JEREMIAH REED MD Address: Address: [address] [place] [address] Personnel Name: JEREMIAH REED MD Address: Address: [address] [place] [address] Personnel Name: JEREMIAH REED MD Address: Address: [address] [place] [address] Personnel Name: JEREMIAH REED MD Address: Address: [address] [place] [address] Personnel Name: JEREMIAH REED MD Address: Address: [address] [place] [address] INFORMATION SOURCE (unrecogn ized section and content) DATE CREATED AUTHOR 09/08/2022 [facility] DATE CREATED AUTHOR AUTHOR'S ORGANIZ ATION 11/04/2023 [facility] DATE CREATED AUTHOR AUTHOR'S ORGANIZ ATION 11/10/2023 [facility] DATE CREATED AUTHOR AUTHOR'S ORGANIZ ATION 12/27/2023 [facility] FOR RECORDS PERTAINING TO PATIENTS WHO ARE [...] BE BASED ON THE PRIMARY CLINICAL RECORDS. [facility] [employer] [facility]. provides no warranty or guarantee of the accuracy or completeness of information in this document.
--- NOTE | 2023-12-28 10:56 | ED.GENADUL1 ---
HPI HPI - General Adult General Chief complaint: Extremity Problem, Nontraumatic Stated complaint: HIP PAIN Time Seen by Provider: 12/28/23 10:37 Source: patient Mode of arrival: walk-in History of Present Illness HPI narrative: This for here complaining of pain in her right paralumbar area near her posterior superior iliac crest area. She does not know if it is her hip or her back. This patient was just at her pain management doctors yesterday and is taking Percocet for her pain. She has previous diagnosis of failed back syndrome, lumbar spondylolysis. She has not had any change in activity, no falls or injuries. She said the pain radiates across to her hip into the anterior thigh down to her knee and lower in the leg. Related Data Home Medications ?Medication ?Instructions ?Recorded ?Confirmed multivitamin 1 tab PO DAILY 10/26/22 12/28/23 omeprazole 40 mg capsule,delayed 40 mg PO DAILY 10/26/22 12/28/23 release calcium carbonate (Calcium 600) 600 mg PO DAILY 03/21/23 12/28/23 meloxicam 15 mg tablet 15 mg PO DAILY 03/21/23 12/28/23 baclofen 10 mg tablet 5 mg PO TID PRN muscle spasm 07/19/23 12/28/23 acetaminophen 325 mg tablet 650 mg PO Q6H PRN pain 08/30/23 12/28/23 amlodipine 2.5 mg tablet 2.5 mg PO DAILY 08/30/23 12/28/23 aspirin 81 mg tablet,delayed 81 mg PO DAILY 08/30/23 12/28/23 release glucosamine sulfate 500 mg tablet 500 mg PO BID 08/30/23 12/28/23 (Glucosamine) oxycodone-acetaminophen 5 mg-325 1 tab PO TID PRN pain 08/30/23 12/28/23 mg tablet (Percocet) albuterol sulfate 90 mcg/actuation 2 puff inhalation Q4H PRN 12/28/23 12/28/23 aerosol inhaler shortness of breath or wheezing buspirone 10 mg tablet 10 mg PO BID 12/28/23 12/28/23 Previous Rx's ?Medication ?Instructions ?Recorded gabapentin 300 mg capsule 300 mg PO TID #270 caps 06/07/23 nortriptyline 25 mg capsule 25 mg PO DAILY #90 caps 06/05/24 Allergies Allergy/AdvReac Type Severity Reaction Status Date / Time No Known Drug Allergies Allergy Verified 12/17/23 10:35 Opioid HPI Opioid Management Most Recent Opioid Data: Last Pain Scale 4 12/17/23 10:36 PFSH PFSH Medical History COPD (chronic obstructive pulmonary disease) ?J44.9 - Chronic obstructive pulmonary disease, unspecified (ICD-10) GERD (gastroesophageal reflux disease) ?K21.9 - Gastro-esophageal reflux disease without esophagitis (ICD-10) Chronic pain ?G89.29 - Other chronic pain (ICD-10) Anxiety ?F41.9 - Anxiety disorder, unspecified (ICD-10) HTN (hypertension) ?I10 - Essential (primary) hypertension (ICD-10) Chronic prescription opiate use ?Z79.891 - 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) use of opiate analgesic (ICD-10) Shoulder arthritis ?M19.019 - Primary osteoarthritis, unspecified shoulder (ICD-10) Cervical spondylosis ?M47.812 - Spondylosis without myelopathy or radiculopathy, cervical region (ICD-10) Surgical History History of lumpectomy of left breast ?Z98.890 - Other specified postprocedural states (ICD-10) History of back surgery ?Z98.890 - Other specified postprocedural states (ICD-10) History of hysterectomy ?Z90.710 - Acquired absence of both cervix and uterus (ICD-10) Family History Mother Family history of cancer Father Family history of stroke Grandfather Family history of stroke Social History Within the past year, how often did you have a drink containing alcohol: never Score interpretation: A score less than 3 is consistent with normal alcohol consumption. Smoking status: Former smoker Non-prescribed substance use: denies use Previous occupational history: retired Highest level of school completed/degree received: high school graduate Are you now , , , , never or living with a partner: Little interest or pleasure in doing things: not at all Feeling down, depressed, or hopeless: not at all Feel stressed/tense/nervous/anxious/difficulty sleeping: not at all Do you think of yourself as: straight/heterosexual Gender Identity: female Exam Narrative Exam Narrative: Awake alert moves about slowly and deliberately. Vital signs are noted and are essentially normal. For ignition and mental status are normal. She does use a walker. Examination of her back shows a healed previous lumbar surgery incision. The surrounding area shows no evidence of skin lesions cellulitis trauma injury or bruising is not appreciated. Her reflexes the patella are 0/4 bilaterally. She does have some weakness of her extensor houses on the right side. Her peripheral perfusion to the extremity on the right side is normal with no evidence of arterial or venous insufficiency. She does not actually have any pain near the hip joint it is more in the paralumbar area. Constitutional Vital Signs, click to edit/add: Last Vital Signs Temp 97.9 F 12/28/23 10:27 Pulse 100 H 12/28/23 10:27 Resp 18 12/28/23 10:27 BP 153/83 H 12/28/23 10:27 Pulse Ox 97 12/28/23 10:27 O2 Del Method Room Air 12/28/23 10:27 Course Vital Signs Vital signs: Vital Signs Temperature 97.9 F 12/28/23 10:27 Pulse Rate 100 H 12/28/23 10:27 Respiratory Rate 18 12/28/23 10:27 Blood Pressure 153/83 H 12/28/23 10:27 Pulse Oximetry 97 12/28/23 10:27 Oxygen Delivery Method Room Air 12/28/23 10:27 Temperature 97.9 F 12/28/23 10:27 Pulse Rate 100 H 12/28/23 10:27 Respiratory Rate 18 12/28/23 10:27 Blood Pressure 153/83 H 12/28/23 10:27 Pulse Oximetry 97 12/28/23 10:27 Oxygen Delivery Method Room Air 12/28/23 10:27 Medical Decision Making MDM Narrative Medical decision making narrative: She did not indicate to us that she just recently had a MRI of her back so without having that information, and with her new presentation I did order CT. There are no acute findings on the CT scan. She has no urinary symptoms and there is no indication that this is anything other than exacerbation of her previous ongoing, worsening lumbar problem. She does not have any new neurological symptomatologies or deficits. She is taking her medications as prescribed. I do not believe I want to order steroids at this time for side effect profile might not be favorable on her behalf. She is going to follow-up with her primary care doctors and pain management physicians. 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 Patient Disposition: Home, Self-Care Time of Disposition Decision: 11:37 Prescriptions / Home Meds: No Action baclofen 10 mg tablet 5 mg PO TID PRN (Reason: muscle spasm) amlodipine 2.5 mg tablet 2.5 mg PO DAILY glucosamine sulfate [Glucosamine] 500 mg tablet 500 mg PO BID Rx Instructions: administer with meals acetaminophen 325 mg tablet 650 mg PO Q6H PRN (Reason: pain) aspirin 81 mg tablet,delayed release (DR/EC) 81 mg PO DAILY oxycodone-acetaminophen [Percocet] 5-325 mg tablet 1 tab PO TID PRN (Reason: pain) omeprazole 40 mg capsule,delayed release(DR/EC) 40 mg PO DAILY multivitamin Tablet 1 tab PO DAILY gabapentin 300 mg capsule 300 mg PO TID Qty: 270 0RF meloxicam 15 mg tablet 15 mg PO DAILY calcium carbonate [Calcium 600] 600 mg calcium (1,500 mg) tablet 600 mg PO DAILY nortriptyline 25 mg capsule 25 mg PO DAILY Qty: 90 0RF albuterol sulfate 90 mcg/actuation HFA aerosol inhaler 2 puff INHALATION Q4H PRN (Reason: shortness of breath or wheezing) buspirone 10 mg tablet 10 mg PO BID Print Language: Danish Additional Instructions: Continue your present medications and 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
== END 2023-12-28 11:44 | disposition home or self-care (01) ==
PROVIDERS: Emergency Provider Emergency Medicine Emergency Medical Services; PCP Family Medicine
DX: M47.816 Spondylosis without myelopathy or radiculopathy, lumbar region (principal); Z87.891 Personal history of nicotine dependence
CPT/HCPCS: 72131; 99284

== ENCOUNTER 2024-01-07 09:01 | Day surgery (SDC) | payer MEDICARE, OTHER, SELFPAY ==
[2024-01-07 09:56] VITALS: BP 143/97; PULSE 92; TEMP 36.6; O2SAT 97
[2024-01-07 10:19] VITALS: BP 142/83; BP 185/98; PULSE 87; PULSE 89; O2SAT 95; O2SAT 96
[2024-01-07] MEDS: 0.9 % SODIUM CHLORIDE 10 ML SYRINGE - SALINE FLUSH INJ (10:20)
[2024-01-07] MEDS: LIDOCAINE HCL 2% 400 MG/20 ML MDV 5 ML INJ (10:21)
[2024-01-07] MEDS: TRIAMCINOLONE ACETONIDE 40 MG/ML VIAL 80 MG INJ (10:21)
[2024-01-07] MEDS: IOHEXOL 240 MG/ML - 10 ML VIAL INJ (10:21)
[2024-01-07] MEDS: BUPIVACAINE HCL 0.25% PF 25 MG/10 ML VIAL INJ (10:21)
--- NOTE | 2024-01-07 10:23 | P.ON_ITS ---
Date of procedure: 01/07/24 Pre-op diagnosis: Pain due to lumbar stenosis with neurogenic claudication Post-op diagnosis: same as pre-op Procedure: Procedure: Right L4-5, L5-S1 transforaminal epidural steroid injection Medications: Bupivacaine 0.25% 2cc, lidocaine 2% 1cc, kenalog 80mg The patient was seen and examined in the preoperative holding area.? Informed consent was obtained and placed on the chart.? Patient was brought to the medical procedure unit and placed in the prone position where a timeout was completed verifying the correct patient, procedure site, position, and planned special equipment using sterile aseptic technique.? Under direct fluoroscopic visualization a 25-gauge Quincke tipped spinal needle was advanced to the designated neural foramen where contrast dye was injected to show adequate spread.? The needle was inserted at level right L4-5. There was no evidence of vascular or adverse uptake.? Epidural spread was appreciated.? The above- mentioned injectate was then placed in a 1.5 mL aliquot preceded by negative aspiration.? The needle was removed. The needle was inserted and the procedure repeated at level right L5-S1.? The surgery site was covered.? Patient was taken to the postprocedural recovery area and monitored for an appropriate length of time before found suitable for discharge in the accompaniment of a responsible adult. Anesthesia: Local Surgeon: Drake Delatorre Pathology: none sent Condition: stable Disposition: no change
== END 2024-01-07 10:30 | disposition home or self-care (01) ==
LOC: SURGOUT 09:02
PROVIDERS: PCP Family Medicine; Visit Provider Anesthesiology
DX: M48.062 Spinal stenosis, lumbar region with neurogenic claudication (principal)
CPT/HCPCS: 64483; 64484; J0665; J3301; Q9966

== ENCOUNTER 2024-01-24 14:10 | Outpatient (OUT) | payer MEDICARE, OTHER, SELFPAY ==
--- OUTSIDE RECORDS SUMMARY | 2024-01-24 14:38 | XMS_ITS | CCD ---
Author Organization [facility] Care Team Providers Care Group Director Experience Name Role Phone Unavailable Primary Care Provider JEREMIAH Arnold Primary Care Physician [phone] BRENT MALDONADO Consulting Unavailable LAKSHMIPATHY ., NARTAMIKA [...] ., NARENDKENNAATH Attending Chelly vailable DEREK, DR JEREMAIH Poole Primary Care Unavailable LAKSHMIPATHY ., NARENDRANATH [...] Unavailable LAKSHMIPATHY ., BARBARA Consulting Chelly vailable RAMOS ., DR FELISHA Page Admitting Unavailable RAMOS ., DR FELISHA Page Consulting Unavailable RAMOS ., DR FELISHA Page Attending Unavailable REED, DR JEREMIAH Poole Primary Care Unavailable REED, DR JEREMIAH Poole Admitting Unavailable REED, DR JEREMIAH Poole Primary Care Unavailable REED, DR JEREMIAH Poole Attending Unavailable Derek, Jeremiah Unavailable Ray Fofana Unavailable DIDIER MALDONADO Attending Unavailable DIDIER MALDONADO Attending Unavailable BRENDA MARIN Attending Unavailable BRENDA MARIN Attending Unavailable Cayden ROBB Admitting Unavailable Cayden ROBB Attending Unavailable COOKCayden Referring Unavailable COOKCayden P Admitting Unavailable COOKCayden Attending Unavailable COOKCayden Referring Unavailable BRENDA MARIN Admitting Unavailable MIAHBRENDA DAMICO Attending Unavailable MIAHBRENDA DAMICO Admitting Unavailable MIAHBRENDA DAMICO Attending Unavailable MoussEfrain saez Admitting Unavailable Efrain Kurtz Attending Unavailable Ehsan Blair Consulting Unavailable MD Ehsan Blair Consulting Unavailable [employer] M[employer], Ehsan Consulting Unavailable [employer], Ehsan Consulting Unavailable [employer], Ehsan Consulting Unavailable [employer], Ehsan Consulting Unavailable [employer], Ehsan Consulting Unavailable [employer], Ehsan Consulting Unavailable [employer], Ehsan Consulting Unavailable Alexandro CARMONA Attending Unavailable BRENDA MARIN Attending Unavailable MIAHBRENDA DAMICO Attending Unavailable MIAHBRENDA DAMICO Referring Unavailable MIAHBRENDA DAMICO Attending Unavailable BRENDA MARIN Attending Unavailable Nandini BERNAL, Drake Glaser Attending Unavailable Nandini BERNAL, Drake Glaser Attending Unavailable Nandini BERNAL, Drake Glaser Attending Unavailable Nandini BERNAL, Drake Glaser Attending Unavailable Nandini BERNAL, Drake Glaser Attending Unavailable Nandini BERNAL, Drake Glaser Attending Unavailable Nandini BERNAL, Drake Glaser Attending Unavailable Nandini BERNAL, Drake Glaser Attending Unavailable Allergies Allergy Classification Reported Allergen(s) Allergy Type Date of Onset Reaction(s) Facility (7 sources) patient allergy list reviewed by nurse or physicia Propensity to adverse reactions 9 Comment:Done Yebol Other (7 sources) Allergies Reconciled Propensity to adverse reactions Unknown Yebol Other Medications Current Medications Medication Drug Class(es) [...] Active oral daily for 30 *Reorder from [employer] for eRx and Interaction Alerts* Apr, Active Start: 02-11-2019 take 2 tablets by mo [facility] once daily amLODIPine 2.5 mg Tab 5 mg = 2 tab(s), Oral, Daily, # 90 tab(s), Refills(s) 0 Start Date: 02/11/19 Status: [facility]-four hours amLODIPine Besylate 5 MG [...] Entry Oral for 0 *Pick strength-form from Singu[employer] for eRX* 30 Mar, 2022 Active Start: [...] procedure, # 10 tab(s), Refills(s) 0, Pharmacy: [facility]/pharmacy #[id number], 165, cm, 09/26/23 15:44:00 EDT, Height/Length Dosing, 91, kg, 09/26/23 15:44:00 EDT, Weight Dosing Start Date: 10/09/23 Status: Ordered Start: 06-11-2023 Cipro 500 mg T ab See Instructions, Take 1 tab day prior to procedure and 1 tab day of procdure - afterwards, # 2 tab(s), Refills(s) 0, Pharmacy: [facility]/pharmacy #[id number], 165, cm, 06/05/23 12:57:00 EST, [...] for 0 duration 5 years *Reorder from [employer]ingu[employer] for eRx and Interaction Alerts* Nov, Active [...] day(s), # 30 tab(s), Refills(s) 11, Pharmacy: [facility]/pharmacy #[id number], 165, cm, 08/28/23 15:03:00 EDT, [...] day(s), # 30 tab(s), Refills(s) 11, Pharmacy: [facility], 165, cm, 06/21/22 14:53:00 EST, Height/Length Dosing, 87, kg, 06/21/22 14:53:00 EST, Weight Dosing Start Date: 06/21/22 Stop Date: 06/16/23 Status: Ordered Tudorza Pressair 400mcg/actuat (7 sources) Start: 04-12-2022 take 1 puff(s) by inhalation twice daily Tudorza Pressair 400mcg/actuat Tudorza Pressair 400mcg/actuat, 1 (one) Puff BID # 1, 04/12/2022, Ref. x12. Active inhalation BID *Pick strength-form from [employer] for eRX* 30 Mar, 2022 Active Start: 04-12-2022 take 1 puff(s) by in halation twice daily Tudorza Pressair 400mcg/actuat Tudorza Pressair 400mcg/actuat, 1 (one) Puff BID # 1, 04/12/2022, Ref. x12. 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 [address] [phone] Medications What How Much When Instructions Unchanged [...] tubing an (more content not included)... [facility] [place] [facility] Office/Clinic Noteon 12-25-2023 Urology Office/Clinic Note [...] Contact Information MIAH ROE, BRENDA Poole, URL [address] [facility] [place] [address] [phone] Additional Instructions: nurse visit in 1 wk w/ PVR, will call pt to schedule f/u Patient Education Injection Treatments for Urinary Incontinence, Care After Documentation recorded by the umm Colon accurately reflects the services(s) I performed and decisions made by me. Authenticated by Brenda Marin PA-C on 12/25/2023 13:09:13. IAbby, personally scribed for Brenda Marin PA-C on [...] than 30 (more content not included)... [facility] [place] Comment on above: Result Comment: Elec tronically Signed By: BRENDA MARIN PA-C\.br\Date and Time Signed: 12/25/23 13:09 EDT\.br\Electronically Co-Signed By: Abby Colon\.br\Date and Time Co-Signed: 12/25/23 13:07 EDT Inpatient Patient Summaryon 12-03-2023 Inpatient Patient Summary Inpatient Patient Summary [address] [address] Clinical Summary Person Information Name: AARON JJ Age: 78 Years : 1945 Sex: Female PCP: JEREMIAH REED MD Marital Status: Phone: [phone] Race: White Ethnicity: Non- or Language: Nauruan Visit Id: Visit Reason: URINARY INCONTINENCE Speciality: Acuity: Enc Type: Outpatient Med Service: Surgery Arrival: 12/03/2023 13:41:56 Discharge: Dispo Type: Address: [address] [place] [address] [address] [phone] Provider Notes: Diagnosis: Problems Active Recurrent UTI [...] Follow up: With: Address: When: BRENDA MARIN [address] [place], [place] [phone] [facility] (1) Comments: Call for followup appointment with Georgette Marin PA-C within the next three weeks or so. Push fluids to keep the urine clear. Expect the Botox to start working within the next 2-3 weeks. Have a great day! Patient Education Information: EU - Cystoscopy with Botox Injection Discharge Instructions (Custom) [facility] Main OR Intraoperative Recor don 12-03-2023 Main OR Intraoperative Record Main OR Intraoperative Record IntraOp Document Type FTURO Summary Primary Physician: Cayden ROBB MD Finalized Date/Time: 12/03/23 14:30:52 Pt. Name: AARON JJ /Sex: 1945 Female Med Rec #: [id number] Physician: Cayden ROBB MD Financial #: [id number] Pt. Type: O Room/Bed: / Admit/Disch: 12/03/23 13:41:56 - Institution: Case Times FTURO Entry 1 Patient Times In Room 12/03/23 14:15:00 Out Room 12/03/23 14:30:00 Procedure Times Start 12/03/23 14:21:00 Stop 12/03/23 14:23:00 Anesthesia Times Last Modified By: Neva Palacio 12/03/23 14:30:41 General Comments: BOTOX 100 UNITS EXP: LOT: [id number].GIORGIO MELENDEZ. Case Attendance FTURO Entry 1 Entry 2 Entry 3 Case Attendee Cayden ROBB MD, Kelsie E McClain CST, Kimberly A Role Performed Surgeon - Primary Paste Mixer - Primary Scrub - Primary Time In [...] Position Verified Availability Equipment, Medication Time Out CEZAR BERNAL, Cayden Hollins, Verified (If Participants Neva Palacio, Applicable) Kenisha [...] 12/03/23 14:30 Neva Palacio 12/03/23 14:30 [facility] [place] Main OR Preoperative Recordo n 12-03-2023 Main OR Preoperative Record Main OR Preoperative Record Holding Area Document Type FTURO Summary Primary Physician: Cayden ROBB MD Finalized Date/Time: 12/03/23 14:21:15 Pt. Name: AARON JJ Flori Muñiz./Sex: 1945 Female Med Rec #: [id number] Physician: Cayden ROBB MD Financial #: [id number] Pt. Type: O Room/Bed: / Admit/Disch: 12/03/23 [...] Complaints of Pain: No Skin Integrity Intact, [place], Warm, & Dry Vitals - EU Blood Pressure 125/72 Pulse 100 bpm Respirations 20 br/min SPO2 95 % Additional Other (See Comment) Specimens Comment ua dip Specimens Collected RN Reviewed Yes Last Modified By: Neva Palacio 12/03/23 14:20:47 Finalized By: Neva Palacio Document Signatures Signed By: Neva Palacio 12/03/23 14:20 Neva Palacio 12/03/23 14:20 Ronald Gypsy GAVIN 12/03/23 14:03 Neva Palacio 12/03/23 14:21 [facility] [place] Operative Reporton Operative Report Operative Report Patient: AARON JJ Age: 78 years Sex: Female : 1945 Associated Diagnoses: None Author: Cayden ROBB MD Procedure Operative Information Details: Date/ Time: 12/03/2023 14:28:00. Pre-Op Dx: Overactive bladder (CYS11-OT N32.81, Working, Medical). Post-Op Dx: Same. Anesthesia [...] about 3 weeks. Finish abx. . [facility] [place] Comment on above: Result Comment: Elec tronically Signed By: Cayden ROBB MD\.br\Date and Time Signed: 12/03/23 14:29 EDT Outpatient Surgery Discharge Instructionon 12-03-2023 Outpatient Surgery Discharge Instruction Outpatient Surgery Discharge Instruction [place] [id number] Patient Discharge Instructions PERSON INFORMATION Name: AARON [...] Follow up: With: Address: When: BRENDA MARIN [address] [place] [phone] [facility] (1) Comments: Call for followup appointment with [...] to serve you. Thank you for choosing [facility] [place] Ambulatory Visit Summaryon 0 09-26-2023 Ambulatory Visit Summary AARON JJ :1945 Visit Date:09/26/2023 Ambulatory Visit Instructions Your Diagnosis OAB (overactive bladder) Urethral stricture Recurrent UTI Your Care Team Attending Physician - BRENDA MARIN PA-C Primary Care Physician - JEREIMAH REED MD This Is Your Medications List [...] Appointments Follow Up with BRENDA MARIN PA-C, CASSIE When: Comments: flaquita Girard w/ Where: [address] [place] [address] [phone] Medications What How Much When Instructions Unchanged [...] including vitamins, herbs, eye drops, creams, and tgpk-ibz-qkfgcph medicines. ? Any problems you or family [...] are or (more content not included)... [facility] [place] Patient Educationon 09-26-19 24 Patient Education Urology [...] including vitamins, herbs, eye drops, creams, and kmar-qnm-nylcfzc medicines. ? Any problems you or family [...] tells you to take them. ? Taking xwrx-enw-cwlpovw medicines, vitamins, herbs, and supplements. General instructions [...] these instructions at home: Medicines ? Take tdni-wgn-cqnrxer and prescription medicines only as told by [...] health ca (more content not included)... [facility] [place] [facility] Office/Clinic Noteon 09-26-2023 Urology Office/Clinic Note [...] Contact Information MIAH ROE, BRENDA Poole, URL [address] [place] [address] [phone] Additional Instructions: sched Botox w/ Patient Education Botulinum Toxin Bladder Injection Documentation recorded by the umm Colon accurately reflects the services(s) I performed and decisions made by me. Authenticated by Brenda Marin PA-C on 09/26/2023 17:32:47. IAbby, personally scribed for Brenda Marin PA-C on [...] tobacco c (more content not included)... [facility] [place] Comment on above: Result Comment: Elec tronically [...] Duration: 30 Days Refills: 11 Pickup at [facility]/pharmacy #6177 New vibegron (Gemtesa 75 mg oral tablet) 1 Tablets By Mouth Every day Urethral stricture OAB (overactive bladder) Recurrent UTI Duration: 30 Days Refills: 11 Pickup at [facility]/pharmacy #6177 Unchanged acetaminophen-oxycod one (acetaminophen-oxyco done [...] Capsules By Mouth Every day Pharmacy Information [facility]/pharmacy #[id number]: [address] [place], [place] [phone] Allergies No Known Allergies Problems Ongoing - [...] you for choosing us for your care. [facility] Patient Educationon 08-28-19 Patient Education Obstetrics [...] health care provider. General instructions ? Take ozon-rnq-cpvtthv and prescription medicines only as told by [...] monitor yo (more content not included)... [facility] [place] [facility] Office/Clinic Noteon 08-28-2023 Urology Office/Clinic Note [...] day(s), # 30 tab(s), Refills(s) 11, Pharmacy: [facility]/pharmacy #[id number], 165, cm, 08/28/23 15:03:00 EDT, Height/Length Dosing, 90, kg, 08/28/23 15:03:00 EDT, Weight Dosing vibegron, 75 mg = 1 tab(s), Oral, Daily, X 30 day(s), # 30 tab(s), Refills(s) 11, Pharmacy: [facility]/pharmacy #[id number], 165, cm, 08/28/23 15:03:00 EDT, Height/Length Dosing, 90, kg, 08/28/23 15:03:00 EDT, Weight Dosing 49080 Measure Post Void residual urine and/or bladder capacity by US- non-imaging Body Mass Index (BMI) documented 3008F Complex E&M Add on G2211 Current tobacco non-user 1036F Depression Screening Negative 3352F E&M of Est. Patient Moderate 30-39 Min 97097 Influenza immunization status assessed 1030F Medication list [...] Urnls Dip Stick Auto w/o Microscopy POC 81940 2. Urethral stricture (N35.919: Unspecified urethral stricture, [...] day(s), # 30 tab(s), Refills(s) 11, Pharmacy: [facility]/pharmacy #[id number], 165, cm, 08/28/23 15:03:00 EDT, Height/Length Dosing, 90, kg, 08/28/23 15:03:00 EDT, Weight Dosing vibegron, 75 mg = 1 tab(s), Oral, Daily, X 30 day(s), # 30 tab(s), Refills(s) 11, Pharmacy: [facility]/pharmacy #[id number], 165, cm, 08/28/23 15:03:00 EDT, Height/Length Dosing, 90, kg, 08/28/23 15:03:00 EDT, Weight Dosing 05408 Measure Post Void residual urine and/or bladder capacity by US- non-imaging Body Mass Index (BMI) documented 3008F Complex E&M Add on G2211 Current tobacco non-user 1036F Depression Screening Negative 3352F E&M of Est. Patient Moderate 30-39 Min 13416 Influenza immunization status assessed 1030F Medication list [...] Coli, 50k Proteus (more content not included)... [facility] Comment on above: Result Comment: Elec tronically Signed By: BRENDA MARIN PA-C\.mario\Date and Time Signed: 08/28/23 15:38 EDT Physician Orderon 08-02-2023 Physician Order [id number] #1.00TIFF [facility] Consent for Procedure/Surger yon 07-23-2023 Consent for Procedure/Surgery [id number] 4#1.00TIFF [facility] Consent for Treatmenton 07-12 Consent for Treatment [id number] 1#1.00TIFF [facility] Inpatient Patient Summaryon 07-23-2023 Inpatient Patient Summary [place] [id number] Clinical Summary Person Information Name: AARON JJ Age: 78 Years : 1945 Sex: Female PCP: JEREMIAH REED MD Marital Status: Phone: [phone] Race: White Ethnicity: Non- or Language: Nauruan Visit Id: Visit Reason: URETHER STRICTURE AND RECURRENT UTI Speciality: Acuity: Enc Type: Outpatient Med Service: Surgery Arrival: 07/23/2023 13:44:06 Discharge: Dispo Type: Address: [address] [place] [address] [address] [place] [phone] Provider Notes: Diagnosis: Problems Active Recurrent UTI [...] Follow up: With: Address: When: BRENDA MARIN [address] [place] [phone] [facility] (1) Comments: Call for followup appointment with Georgette Marin PA-c within the next 2 months or so to monitor you. Please finish your antibiotics and have a great day. Patient Education Information: EU - Cystoscopy with Urethral Dilation Discharge Instructions (Custom) [facility] IntraOperative Documentson 0 07-23-2023 IntraOperative Documents [id number] 5#1.00TIFF [facility] Main OR Intraoperative Recor don 07-23-2023 Main OR Intraoperative Record IntraOp Document Type FTURO Summary Primary Physician: Cayden ROBB MD Finalized Date/Time: 07/23/23 14:33:02 Pt. Name: AARON JJ Ilene/Sex: 1945 Female Med Rec #: [id number] Physician: Cayden ROBB MD Financial #: [id number] Pt. Type: O Room/Bed: / Admit/Disch: 07/23/23 [...] Son Tellez Role Performed Surgeon - Primary Paste Mixer - Primary Scrub - Primary Time In [...] Position Verified Availability Equipment, Medication Time Out CEZAR BERNAL, Cayden Hollins, Verified (If Participants Crissy Borja RN Applicable) [...] By: Crissy Borja RN 07/23/23 14:33 [facility] [place] Main OR Preoperative Recordo n 07-23-2023 Main OR Preoperative Record Holding Area Document Type FTURO Summary Primary Physician: Cayden ROBB MD Finalized Date/Time: 07/23/23 14:14:06 Pt. Name: AARON JJ /Sex: 1945 Female Med Rec #: [id number] Physician: Cayden ROBB MD Financial #: [id number] Pt. Type: O Room/Bed: / Admit/Disch: 07/23/23 [...] JOSE Markham RN, Ruthann 07/23/23 14:14 [facility] [place] Operative Reporton Operative Report Patient: AARON JJ Age: 78 years Sex: Female : 1945 Associated Diagnoses: None Author: Cayden ROBB MD Procedure Operative Information Details: Date/ Time: 07/23/2023 14:29:00. Pre-Op Dx: Recurrent UTI (MVT03-XR N39.0, Working, Medical), Unspecified urethral stricture, female (URC91-DX N35.92, Working, Medical), Overactive bladder (BOJ64-AR N32.81, Working, Medical). Post-Op Dx: Same. Anesthesia [...] urine. The Urethra was dilated to: 30 Indonesian w/ sounds. Devices Implanted: None. Removal: Cystoscope is removed, The patient tolerated it well. Postoperative Information Discharge: Patient is discharged home with antibiotic coverage, Follow up arranged, F/U with Georgette Mrain PA-C within the next 2-3 months. Monitor the urinary flow pattern. The goal is also to decrease UTI frequency. . [facility] [place] Comment on above: Result Comment: Elec tronically Signed By: Cayden ROBB MD\.br\Date and Time Signed: 07/23/23 14:30 EDT Outpatient Surgery Discharge Instructionon 07-23-2023 Outpatient Surgery Discharge Instruction [place] [id number] Patient Discharge Instructions PERSON INFORMATION Name: AARON [...] Follow up: With: Address: When: BRENDA MARIN [address] [facility] [place] [phone] [facility] (1) Comments: Call for followup appointment with [...] Date You may receive a survey from [employer] asking you to rate your care experience. Your feedback is important and will help us understand what we do well and how we can improve the quality of care we provide to you, your loved ones and our community. It?s an honor to serve you. Thank you for choosing [facility] [place] C Urineon 07-11-2023 Bacteria identified Cx Nom [...] Locations R1: This test was performed at: [facility], [address] [place] [address], [address] , , [facility] Comment on above: Performed By: #### 2 [id number] ####[place] [address] [place] [address] Ambulatory Visit Summaryon 0 07-09-2023 Ambulatory Visit [...] Surgical Services Sunday 2:30 PM EDT Where: [facility] Medications What How Much [...] for choosing us for your care. [facility] [place] C Urineon 06-07-2023 Bacteria identified Cx Nom [...] This test was performed at: [facility], [address] [place] [address], [facility]- , , [facility] Comment on above: Performed By: #### 2 [id number] #### [facility] [address] [place] [address] Lab Reportson 06-06-2023 Lab Reports [id number] 7#1.00TIFF [facility] Screenson 06-06-2023 Screens [id number]# 1.00TIFF [facility] Ambulatory Visit Summaryon 0 06-05-2023 Ambulatory [...] with CEZAR BERNAL, CASSIE Seay When: Where: [facility] [address] [place] [address]- Medications What How Much When Instructions Unchanged [...] The main (more content not included)... [facility] [place] Patient Educationon 06-05-19 Patient Education Urology Urethral [...] Follow these instructions at home: ? Take vtsl-iny-haadwns and prescription medicines only as told by [...] provider. Document Revised: 03/07/2022 Document Reviewed: 03/07/2022 [employer] Patient Education ? 2022 [employer] 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 Getting up 3-4x/night, every night. Denies current pain/burning and visible blood in urine. States she has had 2 UTI's since April. Was hospitalized back in March @ [facility] due to [place]. (No C&S at [facility]) Also at [place]. C&S 03/24/23 *>100k E Coli & 50-60k [...] available) Was hospitalized back in March @ [facility] due to falling. (No C&S at [facility]) Also at [place]. UA today shows trace-intact blood, positive nitrates [...] evening fluids and reducing bladder irritants. Ordered: 35956 Measure Post Void residual urine and/or bladder [...] Urnls Dip Stick Auto w/o Microscopy POC 67204 Follow-up With When Contact Information CEZAR BERNAL, Cayden Hollins, URL [address] [address]- Additional Instructions: Schedule cysto/UD Patient Education Urethral Stricture Documentation recorded by the scrmallory Mantilla accurately reflects the services(s) I performed [...] 2 tab (more content not included)... [facility] [place] Comment on above: Result Comment: Elec tronically Signed By: BRENDA MARIN PA-C\.br\Date and Time Signed: 06/05/23 17:59 EST\.br\Electronically Co-Signed By: Dori Mantilla\.br\Date and Time Co-Signed: 06/05/23 13:35 EST Insurance Correspondence Off iceon 04-19-2023 Insurance Correspondence Office [id number] 8#1.00TIFF [facility] [place] Discharge Instructionson Discharge Instructions [id number] 8#1.00TIFF [facility] [place] Outside Recordson 04-14-2023 Outside Records [id number] 3#1.00TIFF [facility] [place] BMPon 04-13-2023 Anion gap [Moles/Vol] 14 mmol/L Normal 6-16 [facility] Comment on above: Performed By: #### 2 [id number], [id number], [id number] #### [facility] [address] [place] [address] Calcium [Mass/Vol] 9.1 mg/dL Normal 8.9-11.1 [place] Comment on above: Performed By: #### 2 [id number], [id number], [id number] #### [facility] [address] [place] [address] Chloride [Moles/Vol] 114 mmol/L High 101-111 [facility] Comment on above: Performed By: #### 2 [id number], [id number], [id number] #### [facility] [address] [place] [address] CO2 [Moles/Vol] 20 mmol/L Low 21-31 [facility] Comment on above: Performed By: #### 2 [id number], [id number], [id number] #### [facility] [address] [place] [address] Creatinine [Mass/Vol] 1.2 mg/dL Normal 0.5-1.3 [facility] [facility] Comment on above: Performed By: #### 2 967502, 8481372, 90087184 #### [facility] [address] [place] [address] Glucose [Mass/Vol] 96 mg/dL Normal 55-199 [facility] Comment on above: Result Comment: If t his glucose result represents a fasting glucose, interpretation should refer to the following reference range: 55-99 mg/dL Performed By: #### 2 661537, 6835651, [id number] #### [facility] [address] [place] [address] Potassium [Moles/Vol] 3.9 mmol/L Normal 3.5-5.3 [facility] Comment on above: Performed By: #### 2 230593, 2363460, 32713119 #### [facility] [address] [place] [address] Sodium [Moles/Vol] 144 mmol/L Normal 135-145 [facility] Comment on above: Performed By: #### 2 585876, 7179591, 90180845 #### [facility] [address] [place] [address] Urea nitrogen [Mass/Vol] 29 mg/dL High 5-21 [facility] Comment on above: Performed By: #### 2 044030, 6811863, 25584470 #### [facility] [address] [place] [address] Urea nitrogen/Creatinine [Mass ratio] 24 No Units High 10-20 [facility] Comment on above: Performed By: #### 2 428106, 4187421, 62869378 #### [facility] [address] [place] [address] CHEMISTRYOrdered By: SYSTEM SYSTEM on 04-13-2023 Anion gap [Moles/Vol] 14 mmol/L Normal 6 - 16 mEq/L [facility] Remisol Calcium [Mass/Vol] 9.1 [...] 47 mL/min/1.73 m2 Low >=59mL/min/1 .73 m2 [facility] Chem S Comment on above: Interpretive Data: [...] 3.9 mmol/L Normal 3.5 - 5.3 mmol/L [facility] Remisol Sodium [Moles/Vol] 144 mmol/L Normal 135 - 145 mmol/L [facility] Remisol Triglyceride [Mass/Vol] 106 mg/dL Normal <=149mg/dL F [facility] Remisol Urea nitrogen [Mass/Vol] 29 mg/dL High 5 - 21 mg/dL [facility] Remisol Urea nitrogen/Creatinine [Mass ratio] 24 mg/mg High 10 - 20 [facility] Remisol Discharge Note-Nursingon Discharge Note-Nursing AARON JJ [...] oral tablet) glucosamine oxymetazoline nasal (Afrin 0.05% [facility]) Procedure History Cystourethroscopy with dilation of urethral [...] Pending Diagnostic Test Results None Pharmacy Information [facility] ([facility] Discharge Instructions Follow up appts as writtenNo driving until cleared by PCP or neuroTake all medications as ordered, monitor prn medication use Previously Scheduled Follow-Up Appointments Sunday 1:00 PM EST With: MIAH ROE, BRENDA Poole Where: [facility] Inpatient Clinical Summaryon 04-13-2023 Inpatient Clinical Summary [address] [address] Clinical Summary Person Information: Name: AARON JJ Age: 78 Years : 1945 Sex: Female PCP: JEREMIAH REED MD Marital Status: Race: White Ethnicity: Non- or Language: Nauruan Visit Id: Visit Reason: Altered mental status; AMS Speciality: Acuity: Enc Type: Observation Med Service: Medical Arrival: 04/12/2023 12:15:14 Discharge: Dispo Type: Admitted as IP to this Hosp Address: [address] [place] [address] [address] [place] [id number] Provider Notes: Diagnosis: 1:AMS (altered mental status); [...] With: Address: When: [facility] [address] [place] [address] Within 1 to 2 weeks Comments: This office is closed on Fridays. Please call the office on Sunday April 16, 2023 for a follow up appiontment. Thank you. With: Address: When: JEREMIAH REED [address] [place] [id number] Business (1) Within 2 to 4 days Comments: Call for followup appointment With: Address: When: [facility] Comments: Call for followup appointment for anxiety/depression care. Type Location Start [facility] Office Visit [facility] AYDE Terrazas 06/05/2023 1:00 PM 06/05/2023 1:15 PM Confirmed Patient Education Information: Confusion aspirin Normal [facility] Inpatient Patient Summaryon 04-13-2023 Inpatient Patient Summary [address] [address] Patient Discharge Instructions PERSON INFORMATION [...] With: Address: When: Johnnie BERNAL, ALPHONSE [facility] [address] [place] [address] Within 1 to 2 weeks Comments: This office is closed on Fridays. Please call the office on Sunday April 16, 2023 for a follow up appiontment. Thank you. With: Address: When: JEREMIAH REED [facility] [place] [address] [employer] (1) Within 2 to 4 days Comments: Call for followup appointment With: Address: When: [facility] Comments: Call for followup appointment for anxiety/depression care. In the event that this physician does not participate in your insurance network, please consult with your insurance company to find a nearby participating provider. Type Location Start [facility] Office Visit [facility] AYDE Terrazas 06/05/2023 1:00 PM 06/05/2023 1:15 [...] 2 adán (more content not included)... Normal [facility] Interdisciplinary Note - Danie e Manageron 04-13-2023 Interdisciplinary Note - Radio Time Buyer Pt is awake and alert in bed, previously rounded with Radha PENNY. Pending Neurology to see and pending MRI. Pending therapy evals, Observation status reviewed [facility] form reviewed, signed by pt and original provided. PT is independent from home, family at bedside and will transport at [place], Declines any concerns or anticipate DC needs. . PCP verified and insurance information reviewed and DME discussed. Contact information provided and white board updated. CRM returned to pt room to discuss DC plans. PT= HH and pt is agreeable to HH at [place], prefers to use [facility] as she has used in past, referral to resource center, anticipate DC home today. Nursing and TEAM COORDINATOR updated. Normal [facility] Comment on above: Result Comment: Elec tronically Signed By: Thu ALVARES, Sallie\.mario\Date and Time Signed: 04/13/23 12:17 EST Interdisciplinary Note - Ashly n 04-13-2023 Interdisciplinary Note - OT OT [facility] six clicks score 21/24 = no further OT needs. Patient requires Dist sup w/ transfers. completes Adls w/ dist sup after set up. Dc inpatient OT services as pt appears close to baseline status and has all bathroom dme already in place at home. Normal [facility] Interdisciplinary Note - Soc ial Workeron 04-13-2023 Interdisciplinary Note - Money Manager This SW met with patient today to [...] any substances. SW will remain available. Normal [facility] Lipid Panelon 04-13-2023 Cholesterol [Mass/Vol] 164 mg/dL Normal 120-200 [facility] Comment on above: Performed By: #### 2 299023, 0415363, [id number] #### [facility] [address] [place] [address] Cholesterol in HDL [Mass/Vol] 62 mg/dL Invalid Interpretation Code [facility] Comment on above: Result Comment: HDL > or equal to 60 mg/dL: Low cardiovascular risk HDL < 40 mg/dL : High cardiovascular risk Performed By: #### 2 036378, 0389170, 37439575 #### [facility] [address] [place] [address] Cholesterol in LDL [Mass/Vol] 73 mg/dL Normal <=129 [facility] Comment on above: Performed By: #### 2 017522, 5843888, 51068227 #### [facility] [address] [place] [address] Cholesterol in VLDL [Mass/Vol] 21 mg/dL Normal 7-40 [facility] Comment on above: Performed By: #### 2 120045, 5900047, 28185512 #### [facility] [address] [place] [address] Triglyceride [Mass/Vol] 106 mg/dL Normal <=149 F [facility] Comment on above: Performed By: #### 2 044819, 3823394, 10491346 #### [facility] [address] [place] [address] MRI Brain w/o Contraston MRI Brain w/o [...] LESLEY Technologist: MAXI Technical Comments None Normal [facility] Message from Medicareon 120 Message from Medicare [id number] #1.00TIFF Normal [facility] Monitor Recordon 04-13-2023 Monitor Record [id number] 6#1.00TIFF Normal [facility] Monitor Record [id number] 8#1.00TIFF Normal [facility] eGFRon 04-13-2023 GFR/1.73 sq M.predicted among non-blacks MDRD (S/P/Bld) [Vol rate/Area] 47 mL/min/1.73 m2 Low >=59 [facility] Comment on above: Order Comment: Order added by Discern Expert. 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 Kidney failure is indicated at less than 15 mL/min/1.73m2. Performed By: #### 2 972939, 5066466, 81111308 #### [facility] [address] [place] [address] Auto Diffon 04-12-2023 Basophils/100 WBC (Bld) 0.4 % Normal 0.0-2.0 [facility] Comment on above: Order Comment: Order Added by Discern Expert. Performed By: #### 2 201767, 39766625, 6225016, 45956309, 4745831, 75065131, 602548281, 61032418, 2840275, 9304170, 4126272, 1319070 ####[facility] [address] [place] [address] Basophils/Leukocytes Auto (Bld) [Pure # fraction] 0.1 E9/L Normal 0.0-0.2 [facility] Comment on above: Order Comment: Order Added by Discern Expert. Performed By: #### 2 267206, 38976981, 4193708, 34568333, 4607676, 46991535, 583136971, 73096621, 2224256, 5387316, 0568382, 3813470 ####[facility] [address] [place] [address] Eosinophils/100 WBC (Bld) 0.1 % Normal 0.0-8.0 [facility] Comment on above: Order Comment: Order Added by Discern Expert. Performed By: #### 2 187454, 96983854, 2191101, 91376789, 5642534, 64277934, 684695342, 27258126, 9611118, 0303404, 5213750, 7809733 ####[facility] [address] [place] [address] Eosinophils/Leukocytes Auto (Bld) [Pure # fraction] 0.0 E9/L Normal 0.0-0.5 [facility] Comment on above: Order Comment: Order Added by Discern Expert. Performed By: #### 2 321402, 82221912, 5348960, 37233088, 4339258, 91336731, 102980691, 82325421, 5088909, 4795095, 1197566, 7468844 ####[address] [place] [address] Lymphocytes/100 WBC (Bld) 9.7 % Low 14.0-50.0 [facility] Comment on above: Order Comment: Order Added by Discern Expert. Performed By: #### 2 064392, 13120557, 1396921, 24491298, 4744583, 69371516, 008152330, 22842852, 6666522, 3069094, 2627895, 7860562 ####[facility] [address] [place] [address] Lymphocytes/Leukocytes Auto (Bld) [Pure # fraction] 1.5 E9/L Normal 1.0-4.0 [facility] Comment on above: Order Comment: Order Added by Discern Expert. Performed By: #### 2 874726, 73851528, 1712706, 82567208, 6257551, 62537788, 352789263, 87501318, 4706950, 8840901, 3494372, 3225092 ####[facility] [address] [place] [address] Monocytes/100 WBC (Bld) 7.8 % Normal 4.0-14.0 [facility] Comment on above: Order Comment: Order Added by Discern Expert. Performed By: #### 2 792560, 75182550, 0387890, 45721372, 9433162, 41134161, 742328998, 46125925, 9285348, 0921704, 3908295, 3263180 ####[facility] [address] [place] [address] Monocytes/Leukocytes Auto (Bld) [Pure # fraction] 1.2 E9/L High 0.2-1.0 [facility] Comment on above: Order Comment: Order Added by Discern Expert. Performed By: #### 2 926092, 70625966, 5346700, 69278332, 0424630, 26232636, 371408459, 98785195, 3776336, 7729254, 6310815, 7790121 ####[facility] [address] [place] [address] Neutrophils/100 WBC (Bld) 82.0 % High 36.0-75.0 [facility] Comment on above: Order Comment: Order Added by Discern Expert. Performed By: #### 2 171314, 00040965, 8778428, 93669605, 2204705, 73677586, 622540074, 20488644, 4655569, 1230083, 8738889, 0967323 ####[facility] [address] [place] [address] Neutrophils/Leukocytes Auto (Bld) [Pure # fraction] 12.4 E9/L High 2.0-7.5 [facility] Comment on above: Order Comment: Order Added by Discern Expert. Performed By: #### 2 893354, 14818820, 8384997, 44831829, 8449176, 27230076, 561851329, 78316841, 3905334, 8453739, 1667670, 1713978 ####[facility] [address] [place] [address] BMPon 04-12-2023 Creatinine [Mass/Vol] 1.8 mg/dL High 0.5-1.3 [facility] Comment on above: Performed By: #### 2 030037, 88622747, 9437853, 74972679, 3995866, 67187612, 469503675, 84025932, 6387039, 4139146, 8653795, 7427534 ####[facility] [address] [place] [address] Urea nitrogen [Mass/Vol] 39 mg/dL High 5-21 [facility] Comment on above: Performed By: #### 2 806580, 87298583, 9455836, 16282014, 8896115, 40417210, 060576497, 26787420, 9093519, 5278353, 4849202, 6140560 ####[facility] [address] [place] [address] Urea nitrogen/Creatinine [Mass ratio] 22 No Units High 10-20 [facility] Comment on above: Performed By: #### 2 320634, 11777420, 5234818, 74033187, 2647394, 28671180, 486540772, 20708172, 3520518, 5611222, 5774560, 7330230 ####[facility] [address] [place] [address] Anion gap [Moles/Vol] 16 mmol/L Normal 6-16 [facility] Comment on above: Performed By: #### 2 001499, 81080593, 5200060, 53381463, 5765347, 78095456, 291491782, 79770444, 7411834, 2956496, 4839395, 5778955 ####[facility] [address] [place] [address] Calcium [Mass/Vol] 10.0 mg/dL Normal 8.9-11.1 [facility] Comment on above: Performed By: #### 2 883266, 22900888, 1310344, 52230060, 8012016, 24295606, 352482761, 08324645, 0505370, 1470416, 7356195, 4473247 ####[facility] [address] [place] [address] Chloride [Moles/Vol] 109 mmol/L Normal 101-111 [facility] Comment on above: Performed By: #### 2 869966, 59680247, 2208206, 06206806, 3498917, 87325602, 455365081, 42931079, 8245676, 0035566, 3345445, 2369445 ####[facility] [address] [place] [address] CO2 [Moles/Vol] 23 mmol/L Normal 21-31 [facility] Comment on above: Performed By: #### 2 674080, 03777548, 4901188, 80895100, 8304451, 46692713, 420061199, 20632988, 9603029, 4668553, 1039657, 3628588 ####[facility] [address] [place] [address] Glucose [Mass/Vol] 89 mg/dL Normal 55-199 [facility] Comment on above: Result Comment: If t his glucose result represents a fasting glucose, interpretation should refer to the following reference range: 55-99 mg/dL Performed By: #### 2 140139, 93509812, 9674916, 64910284, 3384853, 05676035, 873814560, 01678289, 0744119, 7815504, 1712493, 0544957 ####[facility] [address] [place] [address] Potassium [Moles/Vol] 4.3 mmol/L Normal 3.5-5.3 [facility] Comment on above: Performed By: #### 2 330896, 13887284, 0959972, 13171304, 0774308, 05207996, 048542560, 71402257, 4389132, 3585517, 7584560, 0143606 ####[facility] [address] [place] [address] Sodium [Moles/Vol] 144 mmol/L Normal 135-145 [facility] Comment on above: Performed By: #### 2 870212, 07122831, 7457027, 99960380, 7650379, 76327311, 031958708, 61858987, 9979087, 9940203, 7681041, 4367901 ####[facility] [address] [place] [address] CBC w/ Auto Diffon 3 Erythrocyte distribution width (RBC) [Ratio] 15.3 % High 10.9-14.2 [facility] Comment on above: Performed By: #### 2 622832, 35888985, 4208999, 05967869, 9835953, 04493469, 737898289, 70740222, 0626390, 7954338, 7535502, 5841840 ####[facility] [address] [place] [address] Hematocrit (Bld) [Volume fraction] 44.4 % Normal 34.0-46.0 [facility] Comment on above: Performed By: #### 2 255975, 03836562, 4492550, 54337045, 5311451, 80626318, 901813594, 48863154, 4301399, 8639664, 8464875, 3173175 ####[facility] [address] [place] [address] Hemoglobin (Bld) [Mass/Vol] 14.0 g/dL Normal 12.0-16.0 [facility] Comment on above: Performed By: #### 2 615912, 36559758, 0051811, 03108524, 0990323, 64022615, 818155337, 94110102, 0728080, 8440385, 7561030, 4245222 ####[facility] [address] [place] [address] MCH (RBC) [Entitic mass] 28.5 pg Normal 27.0-34.0 [facility] Comment on above: Performed By: #### 2 015668, 60641943, 6257796, 97770430, 2896267, 63510639, 859779014, 42715302, 3258299, 1050978, 7979940, 0583328 ####[facility] [address] [place] [address] MCHC (RBC) [Mass/Vol] 31.6 g/dL Normal 31.4-36.0 [facility] Comment on above: Performed By: #### 2 139501, 77592732, 2807371, 30156047, 5066823, 58093789, 554421150, 66148069, 5639914, 1798359, 0254622, 6941120 ####[address] [place] [address] MCV (RBC) [Entitic vol] 89.9 fL Normal 80.0-100.0 [facility] Comment on above: Performed By: #### 2 461927, 28198924, 7596160, 46162654, 9170982, 07764015, 179324422, 90642762, 9592920, 0863246, 0205757, 7985400 ####[address] [address] Platelet mean volume (Bld) [Entitic vol] 9.8 fL Normal 6.4-10.8 [facility] Comment on above: Performed By: #### 2 868915, 60889572, 2832197, 71518820, 7729478, 87813951, 545385851, 91475055, 7851175, 5171748, 5865030, 1896993 ####[facility] [address] [place] [address] Platelets (Bld) [#/Vol] 285.0 E9/L Normal 150.0-500.0 [facility] Comment on above: Performed By: #### 2 382104, 50113713, 5578572, 33466392, 3634179, 55274256, 029159592, 73558056, 2105040, 5380616, 9869610, 4871891 ####[address] [place] [address] RBC (Bld) [#/Vol] 4.9 E12/L Normal 4.3-5.9 [facility] Comment on above: Performed By: #### 2 127463, 76254308, 4890106, 71138147, 8512913, 73842824, 277981607, 77466980, 4086620, 4387901, 2502094, 5979172 ####[facility] [address] [place] [address] WBC corrected for nucl RBC Auto (Bld) [#/Vol] 15.1 E9/L High 4.0-11.0 [facility] Comment on above: Performed By: #### 2 080434, 86245674, 1195306, 11645338, 9955188, 00253537, 041178094, 62878645, 4096107, 6619932, 1710700, 5074497 ####[facility] [address] [place] [address] CHEMISTRYOrdered By: SYSTEM SYSTEM on 04-12-2023 Amphetamines [...] 0.52 m[IU]/L Normal 0.34 - 5.60 mcIU/mL [facility] Remisol Urea nitrogen [Mass/Vol] 39 mg/dL High 5 - 21 mg/dL [facility] Remisol Urea nitrogen/Creatinine [Mass ratio] 22 mg/mg High 10 - 20 [facility] Remisol CHEMISTRYOrdered By: Shauna kendall on 04-12-2023 HbA1c (Bld) [Mass fraction] 5.9 % Normal <=5.9% [facility] ChemAutoSS CHEMISTRYOrdered By: Crystal Faria on 04-12-2023 Glucose [Mass/Vol] 88 mg/dL Normal 55 - 99 mg/dL [facility] POC Subsection Comment on above: Result Comment: Jose matos RN/ POC Username [place] Invalid Interpretation Code [facility] POC Subsection Sodium [Moles/Vol] 124611183656 mmol/L Invalid Interpretation Code [facility] POC Subsection Sodium [Moles/Vol] 518193378 mmol/L Invalid Interpretation Code [facility] POC Subsection COAGULATIONOrdered By: Myra Grayson on 04-12-2023 aPTT Coag (PPP) [Time] 29.5 s Normal 25.1 - 36.5 second(s) [facility] Auto Coag Comment on above: Interpretive Data: [...] the same coagulation reagent and instrumentation as [facility]. Currently there are no coagulation studies available worldwide for children to 14 days, and no normal ranges. Heparin therapeutic range (represented by Anti-Factor Xa activity of 0.2 - 0.4 U/mL) corresponds to PTT of 56.6 - 109.0 sec. INR Coag (PPP) [Relative time] 0.9 {INR} Invalid Interpretation Code [facility] Auto Coag Comment on above: Interpretive Data: I NR results are specifically intended to assess patients stabilized on long-term Anticoagulation therapy suggested INR s Less Intensive Anticoagulation 2.0 3.0 Conventional Range 3.0 4.5 PT Coag (PPP) [Time] 10.4 s Normal 9.4 - 1 2.5 second(s) [facility] Auto Coag Comment on above: Interpretive Data: [...] the same coagulation reagent and instrumentation as [facility]. Currently there are no coagulation studies available worldwide for children to 14 days, and no normal ranges. CT Head or Brain w/o [facility] 04-12-2023 CT Head or Brain w/o Contrast [...] MD Transcribed by: LESLEY Technologist: SOFIA Normal [facility] CT Spine Cervical w/o Contra ston 04-12-2023 [...] MD Transcribed by: LESLEY Technologist: SOFIA Normal [facility] Capillary Glucose POCon 03-16 Glucose [Mass/Vol] 88 mg/dL Normal 55-99 [facility] Comment on above: Result Comment: Jose matos RN/ Performed By: #### 2 60023329 #### [facility] [address] [place] [address] Consent for Treatmenton 3 Consent for Treatment [id number] #1.00TIFF Normal [facility] ED Clinical Summaryon 2022 ED Clinical Summary [address] [address] ED Clinical Summary Person Information Name: AARON JJ [place] Age: 78 Years : 1945 Sex: Female Language: Nauruan PCP: JEREMIAH REED MD Marital Status: Visit Id: Visit Reason: Altered mental status; AMS Speciality: Acuity: 2 Enc Type: Observation Med Service: Emergency Arrival: 04/12/2023 12:15:14 Discharge: LOS: 000 04:45 Checkin: 04/12/2023 12:15:14 Checkout: 04/12/2023 17:00:36 Dispo Type: Admitted as IP to this [facility] EVENTS: Event Name Event Status Request [...] Labs Collected 04/12/2023 16:57:50 04/12/2023 16:57:50 ADDRESS: [facility] [place] [id number] PHYS DOC NOTES: MEDICAL INFORMATION: Prescriptions Given: [...] vein thrombosis (DVT) prophylaxis; Depression, unspecified Normal [facility] ED Note-Physicianon 04-12-20 ED Note-Physician Basic Information [...] had a urinary tract infection diagnosed at [place] for which she is on antibiotics. 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 Normal [facility] Comment on above: Result Comment: Elec tronically Signed By: Abran Holguin DO\.br\Date and Time Signed: 04/12/23 22:13 EST ED Patient Education Noteon 04-12-2023 ED Patient Education Note Normal [facility] ED Patient Summaryon 023 ED Patient Summary [address] [address] Patient Discharge Instructions Person Information Name: AARON JJ Age: 78 Years Arrival Date: 04/12/2023 12:15:14 Discharge Diagnosis: 1:AMS (altered mental status); 2:Elevated serum creatinine; 3:HTN (hypertension); 4:Anxiety and depression; 5:Peripheral neuropathy; 6:Chronic GERD; 7:OAB (overactive bladder); 8:Obesity; 9:On deep vein thrombosis (DVT) prophylaxis; Depression, unspecified Primary Care Physician: JEREMIAH REED MD Provider Information Primary Provider: Abran Holguin DO Advanced Photo Manager:None The exam and treatment you received in the Emergency Department were for an urgent problem and are not intended as complete care. It is important that you follow up with a doctor, nurse practitioner, or physician?s mortgage loan assistant for ongoing care. If your symptoms [...] opioids can be used to help relieve bmrufkxq-qk-rnactx pain and are often prescribed following a [...] be struggling with addiction, tell your health direct care worker and ask for guidance or (more content not included)... Normal [facility] Ethanolon 04-12-2023 Ethanol [Mass/Vol] mg/dL Normal <=7 [facility] Comment on above: Performed By: #### 2 127478 #### [facility] [address] [place] [address] Folateon 04-12-2023 Folate [Mass/Vol] ng/mL Normal >=6.7 [facility] Comment on above: Performed By: #### 2 731459 #### [facility] [address] [place] [address] HEMATOLOGYOrdered By: SYSTEM SYSTEM on 04-12-2023 Basophils/100 [...] 31.6 g/dL Normal 31.4 - 36.0 gm/dL [facility] HemeAutoSS MCV (RBC) [Entitic vol] 89.9 fL [...] 15.1 E9/L High 4.0 - 11.0 E9/L [facility] HemeAutoSS Hep Func Panelon 04-12-2023 Albumin [Mass/Vol] 4.4 g/dL Normal 3.3-5.0 [facility] Comment on above: Performed By: #### 2 322824, 67423151, 1607300, 46009566, 4962901, 37485655, 597775869, 21530956, 4229052, 9251937, 4206189, 0943340 ####[facility] [address] [place] [address] Albumin/Globulin (S) [Mass conc ratio] 1.3 Normal 1.1-2.2 [facility] Comment on above: Performed By: #### 2 367006, 03933337, 4550773, 21315515, 7308764, 79152166, 357186210, 15435889, 8244671, 3353540, 9168157, 3184012 ####[facility] [address] [place] [address] ALP [Catalytic activity/Vol] 78 Int._Unit/L Normal 21-98 [facility] Comment on above: Performed By: #### 2 202255, 43225655, 8278379, 57410799, 3552687, 06045574, 224262629, 37337879, 0008809, 0584151, 3799719, 0954046 ####[facility] [address] [place] [address] ALT No additional P-5'-P [Catalytic activity/Vol] 22 Int._Unit/L Normal 6-46 [facility] Comment on above: Performed By: #### 2 665970, 20553625, 2447793, 97968799, 8901450, 21618052, 583642676, 86225202, 1497994, 8335896, 9242034, 2454614 ####[facility] [address] [place] [id number] AST [Catalytic activity/Vol] 25 Int._Unit/L Normal 5-43 [facility] Comment on above: Performed By: #### 2 561448, 15500840, 8126401, 65404172, 7168620, 58160622, 710830594, 43418267, 7582328, 0970120, 0587280, 4234194 ####[facility] [address] [place] [address] Bilirubin [Mass/Vol] 0.7 mg/dL Normal 0.0-1.1 [facility] Comment on above: Performed By: #### 2 856106, 74839521, 9546469, 45442090, 0479944, 96571997, 031569906, 87531311, 2444395, 2358176, 1939037, 2447692 ####[facility] [address] [place] [address] Bilirubin.direct [Mass/Vol] 0.1 mg/dL Normal 0.1-0.4 [facility] Comment on above: Performed By: #### 2 621099, 06929872, 4705214, 62822868, 9188888, 82452911, 216399933, 89019379, 7691567, 1137002, 8498945, 0217188 ####[facility] [address] [place] [address] Bilirubin.indirect [Mass or moles/Vol] 0.6 mg/dL Normal 0.1-0.9 [facility] Comment on above: Performed By: #### 2 523911, 29208846, 6310540, 28230154, 9157601, 21922384, 962709279, 88612012, 2304316, 0411485, 8971711, 4270194 ####[facility] [address] [place] [address] Globulin (S) [Mass/Vol] 3.3 g/dL Normal 1.4-4.0 F [facility] Comment on above: Performed By: #### 2 005773, 43586348, 5144181, 35573444, 2010485, 67614841, 401465748, 94417424, 1630663, 0326196, 3613017, 5928135 ####[facility] [address] [place] [address] Protein [Mass/Vol] 7.7 g/dL Normal 6.0-7.8 [facility] Comment on above: Performed By: #### 2 096500, 75096759, 1990858, 73228256, 6084883, 84729185, 119998740, 99239124, 8095968, 8582547, 3244526, 5918975 ####[facility] [address] [place] [address] ZvgN3rng 04-12-2023 HbA1c (Bld) [Mass fraction] 5.9 % Normal <=5.9 [facility] Comment on above: Performed By: #### 2 593177 #### [facility] [address] [place] [address] Magnesiumon 04-12-2023 Magnesium [Mass/Vol] 2.0 mg/dL Normal 1.3-2.4 [facility] Comment on above: Performed By: #### 2 774600 #### [facility] [address] [place] [address] Monitor Recordon 04-12-2023 Monitor Record [id number] 0#1.00TIFF Normal [facility] Monitor Record [id number] 24#1.00TIFF Normal [facility] PT & PTTon 04-12-2023 aPTT Coag (PPP) [Time] 29.5 second(s) Normal 25.1-36.5 [facility] Comment on above: Result Comment: Para meter [...] the same coagulation reagent and instrumentation as [facility]. Currently there are no coagulation studies available worldwide for children to 14 days, and no normal ranges. Heparin therapeutic range (represented by Anti-Factor Xa activity of 0.2 - 0.4 U/mL) corresponds to PTT of 56.6 - 109.0 sec. Performed By: #### 2 792055, 00957956, 4754844, 78330162, 9678181, 42402400, 935128119, 71894224, 4735167, 0253774, 0987395, 1283071 ####[facility] [address] [place] [address] INR Coag (PPP) [Relative time] 0.9 {INR} Invalid Interpretation Code [facility] Comment on above: Result Comment: INR results are specifically intended to assess patients stabilized on long-term Anticoagulation therapy suggested INR?s ?Less Intensive Anticoagulation? 2.0 ? 3.0 Conventional Range 3.0 ? 4.5 Performed By: #### 2 099809, 47402650, 4210681, 61434353, 2810528, 59022833, 549948865, 76397872, 9753000, 7667263, 9441741, 1637305 ####[facility] [address] [place] [address] PT Coag (PPP) [Time] 10.4 second(s) Normal 9.4-12.5 [facility] Comment on above: Result Comment: 15 d [...] the same coagulation reagent and instrumentation as [facility]. Currently there are no coagulation studies available worldwide for children to 14 days, and no normal ranges. Performed By: #### 2 341938, 34114104, 1454608, 56796440, 3231464, 80556890, 426383760, 82965298, 4004008, 2410872, 6885138, 6606019 ####[facility] [address] [place] [address] Pre-Arrival Noteon 3 Pre-Arrival Note Pre-Arrival Summary Name: , Current Date: 04/12/2023 12:18:15 EST Gender: Female Date of : Age: 88 Pre-Arrival Type: EMS ETA: 04/12/2023 12:29:00 EST Primary Care Physician: Presenting Problem: altered mental status Pre-Arrival User: Brenda Miller RN Referring Source: Location: Completion Date/Time: 04/12/2023 11:59:00 [facility] Emergency Department Pre-Hospital Report Form Vital Signs: Pre-Hospital Report: Treatment in Route: Response to Treatment: Misc. Issues: Normal [facility] RAD - MRI Screening Formon 1 06-12-2022 RAD - MRI Screening Form [id number] 7#1.00TIFF Normal [facility] TSH With T4fr Reflexon 04-12 TSH Qn 0.52 m[IU]/L Normal 0.34-5.60 [facility] Comment on above: Performed By: #### 2 776772 #### [facility] [address] [place] [address] Troponin 0 Hr.on 04-12-2023 Troponin I.cardiac [Mass/Vol] 11.90 pg/mL Normal 10.10-27.10 [facility] Comment on above: Order Comment: per yoshi LINTON RN is drawing labs and sending [id number] 04/12/2023 12:26:28 EST Result Comment: The 95% CI (Confidence Interval) PPV (Positive Predictive Value) for myocardial infarction in females is 38 pg/mL, in males 51 pg/mL. The results should be used in conjunction with clinical conditions of myocardial infarction. (Access High Sensitivity Troponin I Instructions For Use, [employer], December 2017) Performed By: #### 2 830753, 73165198, 9334253, 04487310, 5007131, 07629866, 435482829, 18887263, 4627993, 6759837, 4101880, 0035385 ####[facility] [address] [place] [address] U Drug Screenon 04-12-2023 Benzodiazepines Ql (U) Positive Abnormal Negative Fi [facility] Comment on above: Result Comment: Crit ical Result UD_BENZ:POS Called to ABRAN HOLGUIN AT ER by URSULA LOZANO And Read Back For Confirmation at: 04/12/2023 15:35:32\Unconfirmed by alternate method\Results verified by repeat analysis\No confirmation requested by Physican Negative Cutoff: <200 ng/mL Performed By: #### 2 944403 #### [facility] [address] [place] [address] Amphetamines Screen method >1000 ng/mL Ql (U) Negative Normal Negative [facility] Comment on above: Result Comment: Nega tive Cutoff: <1000 ng/mL Performed By: #### 2 735646 #### [facility] [address] [place] [address] Barbiturates Screen Ql (U) Negative Normal Negative [facility] Comment on above: Result Comment: Nega tive Cutoff: <200 ng/mL Performed By: #### 2 482747 #### [facility] [address] [place] [address] Cocaine Ql (U) Negative Normal Negative [facility] Comment on above: Result Comment: Nega tive Cutoff: <300 ng/mL Performed By: #### 2 470125 #### [facility] [address] [place] [address] Opiates Screen Ql (U) Negative Normal Negative [facility] Comment on above: Result Comment: Nega tive Cutoff: <300 ng/mL Performed By: #### 2 871639 #### [facility] [address] [place] [address] Phencyclidine Screen method >25 ng/mL Ql (U) Negative Normal Negative [facility] Comment on above: Result Comment: Nega tive Cutoff: <25 ng/mL These drug screen results are to be used for medical (i.e., treatment) purposes only. Unconfirmed drug screening results must not be used for non-medical purposes (e.g., employment testing, legal testing). Performed By: #### 2 318500 #### [facility] [address] [place] [address] Tetrahydrocannabinol Screen method >50 ng/mL Ql (U) Negative Normal Negative [facility] Comment on above: Result Comment: Nega tive Cutoff: <50 ng/mL Performed By: #### 2 502450 #### [facility] [address] [place] [address] UA With Cult Reflexon 2022 Bacteria LM Ql (Urine sed) TRACE Normal Trace [facility] Comment on above: Performed By: #### 1 0332371 #### [facility] [address] [place] [address] Bilirubin Ql (U) Negative Normal Negative [facility] Comment on above: Performed By: #### 1 3688031 #### [facility] [address] [place] [address] Clarity (U) CLEAR Normal Clear [facility] Comment on above: Performed By: #### 1 2347060 #### [facility] [address] [place] [address] Color (U) YELLOW Normal Yellow [facility] Comment on above: Performed By: #### 1 9685193 #### [facility] [address] [place] [address] Epithelial cells.squamous LM.HPF (Urine sed) [#/Area] 0-2 Normal 0-2 [facility] Comment on above: Performed By: #### 1 9715701 #### [facility] [address] [place] [address] Glucose Test strip (U) [Mass/Vol] Negative Normal Negative [facility] Comment on above: Performed By: #### 1 1668771 #### [facility] [address] [place] [address] Hemoglobin Ql (U) Negative Normal Negative [facility] Comment on above: Performed By: #### 1 7409854 #### [facility] [address] [place] [address] Ketones (U) [Mass/Vol] TRACE Abnormal Negative Fi [facility] Comment on above: Performed By: #### 1 1174763 #### [facility] [address] [place] [address] Kem[place].plasma/Kemah. RBC (Bld) [Mass ratio] 0-3 Normal 0-3 [facility] Comment on above: Performed By: #### 1 5975969 #### [facility] [address] [place] [address] Mucus Ql (Urine sed) TRACE Normal [facility] Comment on above: Performed By: #### 1 3492353 #### [facility] [address] [place] [address] Nitrite Ql (U) Negative Normal Negative [facility] Comment on above: Performed By: #### 1 9683447 #### [facility] [address] [place] [address] pH (U) 5.0 [pH] Invalid Interpretation Code 5.0-9.0 [facility] Comment on above: Performed By: #### 1 5120871 #### [facility] [address] [place] [address] Protein (U) [Mass/Vol] TRACE Abnormal Negative [facility] Comment on above: Performed By: #### 1 8489411 #### [facility] [address] [place] [address] Specific gravity (U) [Rel density] >=1.030 Invalid Interpretation Code 1.005-1.030 [facility] Comment on above: Performed By: #### 1 9461087 #### [facility] [address] [place] [address] Type of Urine collection method Catheter Normal [facility] Comment on above: Performed By: #### 1 9265063 #### [facility] [address] [place] [address] Urobilinogen Qn (U) 0.2 {Nevaeh'U}/dL Normal 0.0-1.0 [facility] Comment on above: Performed By: #### 1 2222012 #### [facility] [address] [place] [address] WBC Auto Ql (U) Negative Normal Negative [facility] Comment on above: Performed By: #### 1 9295289 #### [facility] [address] [place] [address] WBC casts LM.LPF (Urine sed) [#/Area] 0-3 Normal [facility] Comment on above: Performed By: #### 1 9364356 #### [facility] [address] [place] [address] WBC LM.HPF (Urine sed) [#/Area] 0-5 Normal 0-5 [facility] Comment on above: Performed By: #### 1 4061627 #### [facility] [address] [place] [address] URINALYSISOrdered By: Bonny Workman on 04-12-2023 Bacteria [...] Interpretation Code Negative [facility] UA Auto SS Kem[place].plasma/[place]emah. RBC (Bld) [Mass ratio] 0-3 /HPF Normal [...] PM) Invalid Interpretation Code 1.005 - 1.030 [facility] UA Auto SS UA Spec Desc Catheter (04/12/23 2:32 PM) Normal [facility] UA Auto SS Urobilinogen Qn (U) 0.6127300 {Nevaeh'U}/dL Normal 0.0 - 1.0 EU/dL FT UA Auto SS WBC Auto Ql (U) Negative (04/12/23 2:32 PM) Normal Negative [facility] UA Auto SS WBC casts LM.LPF (Urine sed) [#/Area] 0-3 (04/12/23 2:32 PM) Normal [facility] UA Auto SS WBC LM.HPF (Urine sed) [#/Area] 0-5 /HPF Normal 0-5/HPF [facility] UA Auto SS Vit B12on 04-12-2023 Cobalamin (Vitamin B12) [Mass/Vol] 1018 pg/mL Normal 50-1500 [facility] Comment on above: Performed By: #### 2 472276 #### [facility] [address] [place] [address] XR Chest Single Viewon 04-12 XR Chest [...] mGy = na DAP = na Normal [facility] eGFRon 04-12-2023 GFR/1.73 sq M.predicted among non-blacks MDRD (S/P/Bld) [Vol rate/Area] 29 mL/min/1.73 m2 Low >=59 [facility] Comment on above: Order Comment: Order added by Discern Expert. 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 Kidney failure is indicated at less than 15 mL/min/1.73m2. Performed By: #### 2 381878, 04394793, 4346729, 26722423, 7685722, 19406137, 294254253, 78779042, 4508238, 3261953, 7707943, 0144758 ####[facility] [address] [place] [address] XR CSPINE OBL FLEX_EXTon XR CSPINE OBL [...] by: Serena OSORIO Date: 2022-09-02 00:37 Normal [facility] MRI SHOULDER RT WO CONon MRI SHOULDER [...] by: EHSAN MILLER Date: 2022-08-22 09:25 Normal [facility] XR SHOULDER RT 2V or >on XR [...] by: BRENT MALDONADO Date: 2022-08-10 22:45 Normal [facility] CT CHEST WO CONon 06-12-2022 CT CHEST [...] by: EHSAN MILLER Date: 2022-06-12 16:56 Normal [facility] VIT D 1 25 DIHYDROXYon 04-24 Calcitriol(1,25 di-OH Vit D) 91.0 pg/mL Critically high 24.8-81.5 [facility] Comment on above: Performed By: #### V [id number] #### [facility] [address] [place] [address] Dr. Helio Cee CULTURE URINEon 04-23-2022 CULTURE [...] Trimethoprim/Sulfame thoxazole <=20 S F Normal [facility] Comment on above: Performed By: #### U RCX #### [facility] [address] [place] [address] [address] Helio Cee CBC AUTO DIFFon 04-21-2022 BASO # 0.0 103/ul Normal 0.0-0.1 [facility] Comment on above: Performed By: #### E RUR #### [facility] [address] [place] [address] Dr. Helio Cee Basophils/100 WBC (Bld) 0.4 % Normal 0.2-2.0 [facility] Comment on above: Performed By: #### E RUR #### [facility] [address] [place] [address] Dr. Helio Cee EO # 0.4 103/ul Normal 0.0-0.7 [facility] Comment on above: Performed By: #### E RUR #### [facility] [address] [place] [address] Dr. Helio Cee Eosinophils/100 WBC (Bld) 4.0 % Normal 0.9-7.0 [facility] Comment on above: Performed By: #### E RUR #### [facility] [address] [place] [address] Dr. Helio Cee Erythrocyte distribution width (RBC) [Ratio] 15.2 % Critically high 11.0-15.0 [facility] Comment on above: Performed By: #### E RUR #### [facility] [address] [place] [address] Dr. Helio Cee Hematocrit (Bld) [Volume fraction] 41.0 % Normal 36.0-48.0 [facility] Comment on above: Performed By: #### E RUR #### [facility] [address] [place] [address] Dr. Helio Cee Hemoglobin (Bld) [Mass/Vol] 12.9 g/dL Normal 12.0-16.0 [facility] Comment on above: Performed By: #### E RUR #### [facility] [address] [place] [address] Dr. Helio Cee IG # 0.04 10e3/ul Critically high 0.00-0.03 [facility] Comment on above: Performed By: #### E RUR #### [facility] [address] [place] [address] Dr. Helio Cee IG % 0.4 % Normal 0.0-0.5 [facility] Comment on above: Performed By: #### E RUR #### [facility] [address] [place] [address] Dr. Helio Cee LYMPH # 1.1 103/ul Critically low 1.2-3.8 [facility] Comment on above: Performed By: #### E RUR #### [facility] [address] [place] [address] Dr. Helio Cee Lymphocytes/100 WBC (Bld) 11.9 % Critically low 20.5-60.0 [facility] Comment on above: Performed By: #### E RUR #### [facility] [address] [place] [address] Dr. Helio Cee MANUAL DIFF REQ NO Normal [facility] Comment on above: Performed By: #### E RUR #### [facility] [address] [place] [address] Dr. Helio Cee MCH (RBC) [Entitic mass] 29.0 pg Normal 26.7-34.0 [facility] Comment on above: Performed By: #### E RUR #### [facility] [address] [place] [address] Dr. Helio Cee MCHC (RBC) [Mass/Vol] 31.5 g/dL Normal 29.9-35.2 [facility] Comment on above: Performed By: #### E RUR #### [facility] [address] [place] [address] Dr. Helio Cee MCV (RBC) [Entitic vol] 92.1 fL Normal 81.0-99.0 [facility] Comment on above: Performed By: #### E RUR #### [facility] [address] [place] [address] Dr. Helio Cee MONO # 0.4 103/ul Normal 0.3-0.8 [facility] Comment on above: Performed By: #### E RUR #### [facility] [address] [place] [address] Dr. Helio Cee Monocytes/100 WBC (Bld) 4.4 % Normal 1.7-12.0 [facility] Comment on above: Performed By: #### E RUR #### [facility] [address] [place] [address] Dr. Helio Cee NEUT # 7.3 103/ul Critically high 1.4-6.5 [facility] Comment on above: Performed By: #### E RUR #### [facility] [address] [place] [address] Dr. Helio Cee Neutrophils/100 WBC (Bld) 78.9 % Critically high 43.0-75.0 [facility] Comment on above: Performed By: #### E RUR #### [facility] [address] [place] [address] Dr. Helio Cee Platelet mean volume (Bld) [Entitic vol] 10.6 fL Normal 9.5-13.5 [facility] Comment on above: Performed By: #### E RUR #### [facility] [address] [place] [address] Dr. Helio Cee PLT 269 103/ul Normal 150-450 [facility] Comment on above: Performed By: #### E RUR #### [facility] [address] [place] [address] Dr. Helio Cee RBC 4.45 106/ul Normal 4.20-5.40 [facility] Comment on above: Performed By: #### E RUR #### [facility] [address] [place] [address] Dr. Helio Cee WBC 9.2 103/ul Normal 4.0-11.0 [facility] Comment on above: Performed By: #### E RUR #### [facility] [address] [place] [address] Dr. Helio Cee LIPID PROFILEon 04-21-2022 CHOL-HDL RATIO NORM SEE BELOW Normal [facility] Comment on above: Result Comment: 3.3 - 4.4 LOW RISK 4.4 - 7.1 AVERAGE RISK 7.1 - 11.0 MODERATE RISK >11.0 HIGH RISK Performed By: #### T SH, LIPID, CMP ####[facility] [address] [place] [address]Dr. Helio Cee Cholesterol [Mass/Vol] 146 mg/dL Normal <=200 Th [facility] Comment on above: Performed By: #### T SH, LIPID, CMP ####[facility] [address] [place] [address]Dr. Claudettelan Cee Cholesterol in HDL [Mass/Vol] 63 mg/dL Critically high 40-60 [facility] Comment on above: Performed By: #### T SH, LIPID, CMP ####[facility] [address] [place] [address]Dr. Helio Cee Cholesterol in LDL [Mass/Vol] 66.6 mg/dL Normal [facility] Comment on above: Performed By: #### T SH, LIPID, CMP ####[facility] [address] [place], [place] [address]Dr. Helio Cee Cholesterol.total/Lisa sterol in HDL [Mass ratio] 2.3 {ratio} Normal [facility] Comment on above: Performed By: #### T SH, LIPID, CMP ####[facility] [address] [place], [place] [address]Dr. Claudettelan Cee HDL NORMAL > or = 60 mg/dl - LOW CARDIOVASCULAR RISK <40 mg/dl - HIGH CARDIOVASCULAR RISK Normal [facility] Comment on above: Performed By: #### T SH, LIPID, CMP ####[facility] [address] [place], [place] [address]Dr. Claudettelan Cee LDL CALC NORMAL SEE BELOW Normal [facility] Comment on above: Result Comment: <100 mg/dl OPTIMAL 100 - 129 mg/dl NEAR OR ABOVE OPTIMAL 130 - 159 mg/dl BORDERLINE HIGH 160 - 189 mg/dl HIGH >190 mg/dl VERY HIGH Performed By: #### T SH, LIPID, CMP ####[facility] [address] [place], [place] [address]Dr. Claudettelan Cee Triglyceride [Mass/Vol] 82 mg/dL Normal <=150 T [facility] Comment on above: Performed By: #### T SH, LIPID, CMP ####[facility] [address] [place] [address]Dr. Helio Cee VLDL CALC 16.4 mg/dL Normal [facility] Comment on above: Performed By: #### T SH, LIPID, CMP ####[facility] [address] [place] [address]Dr. Helio Cee PROF 14(COMP METB)on 022 Albumin [Mass/Vol] 3.5 g/dL Normal 3.4-5.0 [facility] Comment on above: Performed By: #### T SH, LIPID, CMP ####[facility] [address] [place] [address]Dr. Helio Cee Albumin/Globulin [Mass ratio] 1.0 {ratio} Normal [facility] Comment on above: Performed By: #### T SH, LIPID, CMP ####[facility] [address] [place], [place] [address]Dr. Helio Cee ALP [Catalytic activity/Vol] 98 U/L Normal 46-116 [facility] Comment on above: Performed By: #### T SH, LIPID, CMP ####[facility] [address] [place] [address]Dr. Helio Cee ALT [Catalytic activity/Vol] 23 U/L Normal 14-59 [facility] Comment on above: Performed By: #### T SH, LIPID, CMP ####[facility] [address] [place] [address]Dr. Helio Cee Anion gap [Moles/Vol] 12.2 mmol/L Normal [facility] Comment on above: Performed By: #### T SH, LIPID, CMP ####[facility] [address] [place] [address]Dr. Helio Cee AST [Catalytic activity/Vol] 15 U/L Normal 15-37 [facility] Comment on above: Performed By: #### T SH, LIPID, CMP ####[facility] [address] [place] [address]Dr. Helio Cee Bilirubin [Mass/Vol] 0.5 mg/dL Normal 0.2-1.0 [facility] Comment on above: Performed By: #### T SH, LIPID, CMP ####[facility] [address] [place] [address]Dr. Helio Cee Calcium [Mass/Vol] 9.0 mg/dL Normal 8.5-10.1 [facility] Comment on above: Performed By: #### T SH, LIPID, CMP ####[facility] [address] [place] [address]Dr. Helio Cee Chloride [Moles/Vol] 109 mmol/L Critically high 98-107 [facility] Comment on above: Performed By: #### T SH, LIPID, CMP ####[facility] [address] [place], [place] [address]Dr. Helio Cee CO2 [Moles/Vol] 26.5 mmol/L Normal 21.0-32.0 [facility] Comment on above: Performed By: #### T SH, LIPID, CMP ####[facility] [address] [place], [place] [address]Dr. Helio Cee Creatinine [Mass/Vol] 1.22 mg/dL Critically high 0.55-1.02 [facility] Comment on above: Performed By: #### T SH, LIPID, CMP ####[facility] [address] [place], [place] [address]Dr. Helio Cee EGFR-AF ANGUILLAN 52 mL/min/1.73m2 Critically low >=60 [facility] Comment on above: Performed By: #### T SH, LIPID, CMP ####[facility] [address] [place], [place] [address]Dr. Helio Cee EGFR-NON AF ANGUILLAN 43 mL/min/1.73m2 Critically low >=60 [facility] Comment on above: Performed By: #### T SH, LIPID, CMP ####[facility] [address] [place], [place] [address]Dr. Helio Cee Globulin (S) [Mass/Vol] 3.4 g/dL Normal [facility] Comment on above: Performed By: #### T SH, LIPID, CMP ####[facility] [address] [place], [place] [address]Dr. Helio Cee Glucose [Mass/Vol] 103 mg/dL Normal 74-106 [facility] Comment on above: Performed By: #### T CAITLIN, LIPID, CMP ####[facility] [address] [place] [address]Dr. Helio Cee Potassium [Moles/Vol] 4.7 mmol/L Normal 3.5-5.1 [facility] Comment on above: Performed By: #### T CAITLIN, LIPID, CMP ####[facility] [address] [place] [address]Dr. Helio Cee Protein [Mass/Vol] 6.9 g/dL Normal 6.4-8.2 [facility] Comment on above: Performed By: #### T CAITLIN, LIPID, CMP ####[facility] [address] [place] [address]Dr. Claudettemagan Cee Sodium [Moles/Vol] 143 mmol/L Normal 136-145 [facility] Comment on above: Performed By: #### T CAITLIN, LIPID, CMP ####[facility] [address] [place] [address]Dr. Claudettemagan Cee Urea nitrogen [Mass/Vol] 22.0 mg/dL Critically high 7.0-18.0 [facility] Comment on above: Performed By: #### T CAITLIN, LIPID, CMP ####[facility] [address] [place] [address]Dr. Helio Cee Urea nitrogen/Creatinine [Mass ratio] 18.0 mg/mg Normal [facility] Comment on above: Performed By: #### T CAITLIN, LIPID, CMP ####[facility] [address] [place] [address]Dr. Helio Cee TSHon 04-21-2022 TSH 0.592 uIU/mL Normal 0.358-3.740 [facility] Comment on above: Performed By: #### T CAITLIN, LIPID, CMP ####[facility] [address] [place] [address]Dr. Helio Cee UA RANDOM W/MICROSCOPICon BACTERIA NONE SEEN Normal NONE SEEN [facility] Comment on above: Performed By: #### U AMIC ####[facility] [address] [place] [address]Dr. Helio Cee Bilirubin Ql (U) Negative Normal NEGATIVE The [facility] Comment on above: Performed By: #### U AMIC ####[facility] [address] [place] [address]Dr. Helio Cee CAST NONE SEEN Normal NONE SEEN [facility] Comment on above: Performed By: #### U AMIC ####[facility] [address] [place] [address]Dr. Helio Cee Clarity (U) CLEAR Normal CLEAR [facility] Comment on above: Performed By: #### U AMIC ####[facility] [address] [place], [place] [address]Dr. Helio Cee Color (U) DK. YELLOW Normal YELLOW [facility] Comment on above: Performed By: #### U AMIC ####[facility] [address] [place], [place] [address]Dr. Helio Cee Crystals LM Nom (Urine sed) NONE SEEN Normal NONE SEEN [facility] Comment on above: Performed By: #### U AMIC ####[facility] [address] [place], [place] [address]Dr. Helio Cee Epithelial cells LM Ql (Urine sed) RARE Normal NONE SEEN /RARE [facility] Comment on above: Performed By: #### U AMIC ####[facility] [address] [place], [place] [address]Dr. Helio Cee Glucose Ql (U) Negative Normal NEGATIVE The [facility] Comment on above: Performed By: #### U AMIC ####[facility] [address] [place], [place] [address]Dr. Helio Cee Hemoglobin Ql (U) Negative Normal NEGATIVE The [facility] Comment on above: Performed By: #### U AMIC ####[facility] [address] [place], [place] [address]Dr. Helio Cee Ketones Ql (U) Negative Normal NEGATIVE The [facility] Comment on above: Performed By: #### U AMIC ####[facility] [address] [place] [address]Dr. Helio Cee LEUKOCYTES Negative Normal NEGATIVE [facility] Comment on above: Performed By: #### U AMIC ####[facility] [address] [place] [address]Dr. Helio Cee MUCOUS TRACE Abnormal NONE SEEN [facility] Comment on above: Performed By: #### U AMIC ####[facility] [address] [place] [address]Dr. Helio Cee Nitrite Ql (U) Negative Normal NEGATIVE The [facility] Comment on above: Performed By: #### U AMIC ####[facility] Pb[address] [place], [place] [address]Dr. Helio Cee pH (U) 5.5 [pH] Normal 5-9 [facility] Comment on above: Performed By: #### U AMIC ####[facility] [address] [place], [place] [address]Dr. Helio Cee RBC 0-2 Normal 0-2 [facility] Comment on above: Performed By: #### U AMIC ####[facility] [address] [place], [place] [address]Dr. Helio Cee SPEC GRAVITY >=1.030 Abnormal 1.005-<=1.02 5 [facility] Comment on above: Performed By: #### U AMIC ####[facility] [address] [place], [place] [address]Dr. Helio Cee UA PROTEIN TRACE Normal NEGATIVE/ TRACE [facility] Comment on above: Performed By: #### U AMIC ####[facility] [address] [place], [place] [address]Dr. Helio Cee Urobilinogen Qn (U) 1.0 {Nevaeh'U}/dL Normal 0.2 - 1. 0 [facility] Comment on above: Performed By: #### U AMIC ####[facility] [address] [place], [place] [address]Dr. Helio Cee WBC NONE SEEN Normal NONE SEEN [facility] Comment on above: Performed By: #### U AMIC ####[facility] [address] [place], [place] [address]Dr. Hel[address] Cee CT CHEST WO CONon 02-22-2022 [...] by: EHSAN MILLER Date: 2022-02-22 16:51 Normal [facility] HEMOGLOBINon 02-22-2022 Hemoglobin (Bld) [Mass/Vol] 13.6 g/dL Normal 12.0-16.0 [facility] Comment on above: Performed By: #### V [id number] #### [facility] [address] [place], [place] [address] Dr. Helio Cee XR TIB_FIB RT 2Von [...] by: BRENT LONG Date: 2022-01-07 21:52 Normal [facility] BNPon 11-22-2021 Natriuretic peptide B (Bld) [Mass/Vol] 1469.0 pg/mL Critically high <=900.0 [facility] Comment on above: Performed By: #### C VDTB #### [facility] [address] [place] [address] Dr. Helio Cee CBC AUTO DIFFon 11-22-2021 BASO # 0.1 103/ul Normal 0.0-0.1 [facility] Comment on above: Performed By: #### E RUR #### [facility] [address] [place] [address] Dr. Helio Cee Basophils/100 WBC (Bld) 0.7 % Normal 0.2-2.0 [facility] Comment on above: Performed By: #### E RUR #### [facility] [address] [place] [address] Dr. Helio Cee EO # 0.2 103/ul Normal 0.0-0.7 [facility] Comment on above: Performed By: #### E RUR #### [facility] [address] [place] [address] Dr. Helio Cee Eosinophils/100 WBC (Bld) 1.9 % Normal 0.9-7.0 [facility] Comment on above: Performed By: #### E RUR #### [facility] [address] [place] [address] Dr. Helio Cee Erythrocyte distribution width (RBC) [Ratio] 14.3 % Normal 11.0-15.0 [facility] Comment on above: Performed By: #### E RUR #### [facility] [address] [place] [address] Dr. Helio Cee Hematocrit (Bld) [Volume fraction] 37.9 % Normal 36.0-48.0 [facility] Comment on above: Performed By: #### E RUR #### [facility] [address] [place] [address] Dr. Helio Cee Hemoglobin (Bld) [Mass/Vol] 12.0 g/dL Normal 12.0-16.0 [facility] Comment on above: Performed By: #### E RUR #### [facility] [address] [place] [address] Dr. Helio Cee IG # 0.10 10e3/ul Critically high 0.00-0.03 [facility] Comment on above: Performed By: #### E RUR #### [facility] [address] [place] [address] Dr. Helio Cee IG % 1.1 % Critically high 0.0-0.5 [facility] Comment on above: Performed By: #### E RUR #### [facility] [address] [place] [address] Dr. Helio Cee LYMPH # 0.9 103/ul Critically low 1.2-3.8 [facility] [place] Comment on above: Performed By: #### E RUR #### [facility] [address] [place] [address] Dr. Helio Cee Lymphocytes/100 WBC (Bld) 10.1 % Critically low 20.5-60.0 [facility] Comment on above: Performed By: #### E RUR #### [facility] [address] [place] [address] Dr. Helio Cee MANUAL DIFF REQ NO Normal [facility] Comment on above: Performed By: #### E RUR #### [facility] [address] [place] [address] Dr. Helio Cee MCH (RBC) [Entitic mass] 29.8 pg Normal 26.7-34.0 [facility] Comment on above: Performed By: #### E RUR #### [facility] [address] [place] [address] Dr. Helio Cee MCHC (RBC) [Mass/Vol] 31.7 g/dL Normal 29.9-35.2 [facility] Comment on above: Performed By: #### E RUR #### [facility] [address] [place] [address] Dr. Helio Cee MCV (RBC) [Entitic vol] 94.0 fL Normal 81.0-99.0 [facility] Comment on above: Performed By: #### E RUR #### [facility] [address] [place] [address] Dr. Helio Cee MONO # 0.7 103/ul Normal 0.3-0.8 [facility] Comment on above: Performed By: #### E RUR #### [facility] [address] [place] [address] Dr. Helio Cee Monocytes/100 WBC (Bld) 7.8 % Normal 1.7-12.0 [facility] Comment on above: Performed By: #### E RUR #### [facility] [address] [place] [address] Dr. Helio Cee NEUT # 7.2 103/ul Critically high 1.4-6.5 [facility] Comment on above: Performed By: #### E RUR #### [facility] [address] [place] [address] Dr. Helio Cee Neutrophils/100 WBC (Bld) 78.4 % Critically high 43.0-75.0 [facility] Comment on above: Performed By: #### E RUR #### [facility] [address] [place] [address] Dr. Helio Cee Platelet mean volume (Bld) [Entitic vol] 10.6 fL Normal 9.5-13.5 [facility] Comment on above: Performed By: #### E RUR #### [facility] [address] [place] [address] Dr. Helio Cee PLT 278 103/ul Normal 150-450 [facility] Comment on above: Performed By: #### E RUR #### [facility] [address] [place] [address] Dr. Helio Cee RBC 4.03 106/ul Critically low 4.20-5.40 [facility] Comment on above: Performed By: #### E RUR #### [facility] [address] [place] [address] Dr. Helio Cee WBC 9.1 103/ul Normal 4.0-11.0 [facility] Comment on above: Performed By: #### E RUR #### [facility] [address] [place] [address] [address] Helio Cee CTA CHEST WO W [...] Jay BARAHONA Date: 2021-11-22 16:47 Normal [facility] CULTURE BLOODon 11-22-2021 Microscopic examination of blood, culture Culture Observations: NO GROWTH AT 5 DAYS. Normal [facility] Comment on above: Performed By: #### B [id number] ####[facility] [address] [place] [id number]. Helio Cee Microscopic examination of blood, culture Culture Observations: NO GROWTH AT 5 DAYS. Normal [facility] Comment on above: Performed By: #### B [id number] #### [facility] [address] [place] [address] [address] Helio Cee Covid-19 PCR (CVDTB)on 11-11 SARS-CoV-2 (COVID-19) RNA KIMMY+probe Ql (Unsp spec) Not detected Normal NOT DETECTED [facility] Comment on above: Result Comment: When diagnostic [...] for this test is supported by the Irrigating [employer] Operator of Health and Human Service's declaration [...] used). Performed By: #### C VDTBH #### [facility] [address] [place] [id number] Helio Cee LACTATE/LACTIC ACIDon 2021 Lactate [Moles/Vol] mmol/L Critically low 0.4-1.9 [facility] Comment on above: Performed By: #### L ACT ####[facility] [address] [place] [id number]. Helio Cee PROF 14(COMP METB)on 022 Albumin [Mass/Vol] 3.1 g/dL Critically low 3.4-5.0 [facility] Comment on above: Performed By: #### V [id number] #### [facility] [address] [place] [address] [address] Helio Cee Albumin/Globulin [Mass ratio] 0.8 {ratio} Normal [facility] Comment on above: Performed By: #### V [id number] #### [facility] [address] [place] [address] [address] Helio Cee ALP [Catalytic activity/Vol] 92 U/L Normal 46-116 [facility] Comment on above: Performed By: #### V [id number] #### [facility] [address] [place] [address] Dr. Helio Cee ALT [Catalytic activity/Vol] 23 U/L Normal 14-59 [facility] Comment on above: Performed By: #### V [id number] #### [facility] [address] [place] [address] [address] Helio Cee Anion gap [Moles/Vol] 12.8 mmol/L Normal [facility] Comment on above: Performed By: #### V [id number] #### [facility] [address] [place] [address] Dr. Helio Cee AST [Catalytic activity/Vol] 16 U/L Normal 15-37 [facility] Comment on above: Performed By: #### V [id number] #### [facility] [address] [place] [address] [address] Helio Cee Bilirubin [Mass/Vol] 0.6 mg/dL Normal 0.2-1.0 [facility] Comment on above: Performed By: #### V [id number] #### [facility] [address] [place] [address] Dr. Helio Cee Calcium [Mass/Vol] 9.5 mg/dL Normal 8.5-10.1 [facility] Comment on above: Performed By: #### V [id number] #### [facility] [address] [place] [address] Dr. Helio Cee Chloride [Moles/Vol] 106 mmol/L Normal 98-107 [facility] Comment on above: Performed By: #### V [id number] #### [facility] [address] [place] [address] [address] Helio Cee CO2 [Moles/Vol] 25.1 mmol/L Normal 21.0-32.0 [facility] Comment on above: Performed By: #### V [id number] #### [facility] [address] [place] [address] [address] Helio Cee Creatinine [Mass/Vol] 1.06 mg/dL Critically high 0.55-1.02 [facility] Comment on above: Performed By: #### V [id number] #### [facility] [address] [place] [address] Dr. Helio Cee EGFR-AF ANGUILLAN >60 Normal >=60 [facility] Comment on above: Performed By: #### V [id number] #### [facility] [address] [place] [address] [address] Helio Cee EGFR-NON AF ANGUILLAN 51 mL/min/1.73m2 Critically low >=60 [facility] Comment on above: Performed By: #### V [id number] #### [facility] [address] [place] [address] Dr. Helio Cee Globulin (S) [Mass/Vol] 4.1 g/dL Normal [facility] Comment on above: Performed By: #### V [id number] #### [facility] [address] [place] [address] [address] Helio Cee Glucose [Mass/Vol] 99 mg/dL Normal 74-106 [facility] Comment on above: Performed By: #### V [id number] #### [facility] [address] [place] [address] [address] Helio Cee Potassium [Moles/Vol] 3.9 mmol/L Normal 3.5-5.1 [facility] Comment on above: Performed By: #### V [id number] #### [facility] [address] [place] [address] Dr. Helio Cee Protein [Mass/Vol] 7.2 g/dL Normal 6.4-8.2 [facility] Comment on above: Performed By: #### V [id number] #### [facility] [address] [place] [address] [address] Helio Cee Sodium [Moles/Vol] 140 mmol/L Normal 136-145 [facility] Comment on above: Performed By: #### V [id number] #### [facility] [address] [place] [address] [address] Helio Cee Urea nitrogen [Mass/Vol] 15.0 mg/dL Normal 7.0-18.0 [facility] Comment on above: Performed By: #### V [id number] #### [facility] [address] [place] [address] Dr. Helio Cee Urea nitrogen/Creatinine [Mass ratio] 14.2 mg/mg Normal [facility] Comment on above: Performed By: #### V [id number] #### [facility] [address] [place] [address] [address] Helio Cee TROPONIN, HIGH SENSITIVITYon 11-22-2021 HSTROP 11.6 pg/mL Normal 4.0-51.3 [facility] Comment on above: Result Comment: CUT- OFF POINTS HAVE BEEN ESTABLISHED BASED ON THE FOURTH UNIVERSAL DEFINITIONS OF MYOCARDIAL INFARCTION. THE UPPER REFERENCE LIMIT (URL) OF TROPONIN, DEFINED THE 99TH PERCENTILE OF cTnI DISTRIBUTION IN A REFERENCE POPULATION, HAS BEEN CONFIRMED THE DECISION THRESHOLD FOR DE DIAGNOSIS. Performed By: #### V [id number] #### [facility] [address] [place] [address] Dr. Helio Cee XR CHEST 2 Von [...] by: ISAC CONNOR Date: 2021-11-22 14:20 Normal [facility] BNPon 11-21-2021 Natriuretic peptide B (Bld) [Mass/Vol] 953.0 pg/mL Critically high <=900.0 [facility] Comment on above: Performed By: #### E RUR #### [facility] [address] [place] [address] Dr. Helio Cee CBC AUTO DIFFon 11-21-2021 BASO # 0.0 103/ul Normal 0.0-0.1 [facility] Comment on above: Performed By: #### E RUR #### [facility] [address] [place] [address] Dr. Helio Cee Basophils/100 WBC (Bld) 0.4 % Normal 0.2-2.0 [facility] Comment on above: Performed By: #### E RUR #### [facility] [address] [place] [address] Dr. Helio Cee EO # 0.1 103/ul Normal 0.0-0.7 [facility] Comment on above: Performed By: #### E RUR #### [facility] [address] [place] [address] Dr. Helio Cee Eosinophils/100 WBC (Bld) 1.1 % Normal 0.9-7.0 [facility] Comment on above: Performed By: #### E RUR #### [facility] [address] [place] [address] Dr. Helio Cee Erythrocyte distribution width (RBC) [Ratio] 14.6 % Normal 11.0-15.0 [facility] Comment on above: Performed By: #### E RUR #### [facility] [address] [place] [address] Dr. Helio Cee Hematocrit (Bld) [Volume fraction] 35.2 % Critically low 36.0-48.0 [facility] Comment on above: Performed By: #### E RUR #### [facility] [address] [place] [address] Dr. Helio Cee Hemoglobin (Bld) [Mass/Vol] 10.9 g/dL Critically low 12.0-16.0 [facility] Comment on above: Performed By: #### E RUR #### [facility] [address] [place] [address] Dr. Helio Cee IG # 0.07 10e3/ul Critically high 0.00-0.03 [facility] Comment on above: Performed By: #### E RUR #### [facility] [address] [place] [address] Dr. Helio Cee IG % 0.7 % Critically high 0.0-0.5 [facility] Comment on above: Performed By: #### E RUR #### [facility] [address] [place] [address] Dr. Helio Cee LYMPH # 1.4 103/ul Normal 1.2-3.8 [facility] Comment on above: Performed By: #### E RUR #### [facility] [address] [place] [address] Dr. Helio Cee Lymphocytes/100 WBC (Bld) 13.3 % Critically low 20.5-60.0 [facility] Comment on above: Performed By: #### E RUR #### [facility] [address] [place] [address] Dr. Helio Cee MANUAL DIFF REQ NO Normal [facility] Comment on above: Performed By: #### E RUR #### [facility] [address] [place] [address] Dr. Helio Cee MCH (RBC) [Entitic mass] 29.5 pg Normal 26.7-34.0 [facility] Comment on above: Performed By: #### E RUR #### [facility] [address] [place] [address] Dr. Helio Cee MCHC (RBC) [Mass/Vol] 31.0 g/dL Normal 29.9-35.2 [facility] Comment on above: Performed By: #### E RUR #### [facility] [address] [place] [address] Dr. Helio Cee MCV (RBC) [Entitic vol] 95.4 fL Normal 81.0-99.0 [facility] Comment on above: Performed By: #### E RUR #### [facility] [address] [place] [address] Dr. Helio Cee MONO # 0.8 103/ul Normal 0.3-0.8 [facility] Comment on above: Performed By: #### E RUR #### [facility] [address] [place] [address] Dr. Helio Cee Monocytes/100 WBC (Bld) 7.3 % Normal 1.7-12.0 [facility] Comment on above: Performed By: #### E RUR #### [facility] [address] [place] [address] Dr. Helio Cee NEUT # 7.9 103/ul Critically high 1.4-6.5 [facility] Comment on above: Performed By: #### E RUR #### [facility] [address] [place] [address] Dr. Helio Cee Neutrophils/100 WBC (Bld) 77.2 % Critically high 43.0-75.0 [facility] Comment on above: Performed By: #### E RUR #### [facility] [address] [place] [address] Dr. Helio Cee Platelet mean volume (Bld) [Entitic vol] 11.1 fL Normal 9.5-13.5 [facility] Comment on above: Performed By: #### E RUR #### [facility] [address] [place] [address] Dr. Helio Cee PLT 245 103/ul Normal 150-450 [facility] Comment on above: Performed By: #### E RUR #### [facility] [address] [place] [address] Dr. Helio Cee RBC 3.69 106/ul Critically low 4.20-5.40 [facility] Comment on above: Performed By: #### E RUR #### [facility] [address] [place] [address] Dr. Helio Cee WBC 10.2 103/ul Normal 4.0-11.0 [facility] Comment on above: Performed By: #### E RUR #### [facility] [address] [place] [address] Dr. Helio Cee PROF 14(COMP METB)on 022 Albumin [Mass/Vol] 2.6 g/dL Critically low 3.4-5.0 [facility] Comment on above: Performed By: #### V [id number] #### [facility] [address] [place] [address] Dr. Helio Cee Albumin/Globulin [Mass ratio] 0.7 {ratio} Normal [facility] Comment on above: Performed By: #### V [id number] #### [facility] [address] [place] [address] Dr. Helio Cee ALP [Catalytic activity/Vol] 75 U/L Normal 46-116 [facility] Comment on above: Performed By: #### V [id number] #### [facility] [address] [place] [address] Dr. Helio Cee ALT [Catalytic activity/Vol] 19 U/L Normal 14-59 [facility] Comment on above: Performed By: #### V [id number] #### [facility] [address] [place] [address] Dr. Helio Cee Anion gap [Moles/Vol] 11.7 mmol/L Normal [facility] Comment on above: Performed By: #### V [id number] #### [facility] [address] [place] [address] Dr. Helio Cee AST [Catalytic activity/Vol] 8 U/L Critically low 15-37 [facility] Comment on above: Performed By: #### V [id number] #### [facility] [address] [place] [address] Dr. Helio Cee Bilirubin [Mass/Vol] 0.3 mg/dL Normal 0.2-1.0 [facility] Comment on above: Performed By: #### V [id number] #### [facility] [address] [place] [address] Dr. Helio Cee Calcium [Mass/Vol] 9.0 mg/dL Normal 8.5-10.1 [facility] Comment on above: Performed By: #### V [id number] #### [facility] [address] [place] [address] [address] Helio Cee Chloride [Moles/Vol] 107 mmol/L Normal 98-107 [facility] Comment on above: Performed By: #### V [id number] #### [facility] [address] [address] [address] Helio Cee CO2 [Moles/Vol] 24.7 mmol/L Normal 21.0-32.0 [facility] Comment on above: Performed By: #### V [id number] #### [facility] [address] [place] [address] Dr. Helio Cee Creatinine [Mass/Vol] 0.91 mg/dL Normal 0.55-1.02 [facility] Comment on above: Performed By: #### V [id number] #### [facility] [address] [address] [address] Helio Cee EGFR-AF ANGUILLAN >60 Normal >=60 [facility] Comment on above: Performed By: #### V [id number] #### [facility] [address] [place] [address] Dr. Helio Cee EGFR-NON AF ANGUILLAN 60 mL/min/1.73m2 Normal >=60 [facility] Comment on above: Performed By: #### V [id number] #### [facility] [address] [address] [address] Helio Cee Globulin (S) [Mass/Vol] 3.9 g/dL Normal [facility] Comment on above: Performed By: #### V [id number] #### [facility] [address] [address] [address] Helio Cee Glucose [Mass/Vol] 131 mg/dL Critically high 74-106 [facility] Comment on above: Performed By: #### V [id number] #### [facility] [address] [place] [address] Dr. Helio Cee Potassium [Moles/Vol] 3.4 mmol/L Critically low 3.5-5.1 [facility] Comment on above: Performed By: #### V [id number] #### [facility] [address] [place] [address] Dr. Helio Cee Protein [Mass/Vol] 6.5 g/dL Normal 6.4-8.2 [facility] Comment on above: Performed By: #### V [id number] #### [facility] [address] [place] [address] Dr. Helio Cee Sodium [Moles/Vol] 140 mmol/L Normal 136-145 [facility] Comment on above: Performed By: #### V [id number] #### [facility] [address] [place] [address] Dr. Helio Cee Urea nitrogen [Mass/Vol] 14.0 mg/dL Normal 7.0-18.0 [facility] [place] Comment on above: Performed By: #### V [id number] #### [facility] [address] [place] [address] Dr. Helio Cee Urea nitrogen/Creatinine [Mass ratio] 15.4 mg/mg Normal [facility] [place] Comment on above: Performed By: #### V [id number] #### [facility] [address] [place] [address] Dr. Helio Cee BNPon 11-20-2021 Natriuretic peptide B (Bld) [Mass/Vol] 781.0 pg/mL Normal <=900.0 [facility] [place] Comment on above: Performed By: #### E RUR #### [facility] [address] [place] [address] Dr. Helio Cee CBC AUTO DIFFon 11-20-2021 BASO # 0.0 103/ul Normal 0.0-0.1 [facility] [place] Comment on above: Performed By: #### V [id number] #### [facility] [address] [place] [address] Dr. Helio Cee Basophils/100 WBC (Bld) 0.3 % Normal 0.2-2.0 [facility] Comment on above: Performed By: #### V [id number] #### [facility] [address] [place], [place] [id number] Dr. Helio Cee EO # 0.1 103/ul Normal 0.0-0.7 [facility] [place] Comment on above: Performed By: #### V [id number] #### [facility] [address] [place] [address] Dr. Helio Cee Eosinophils/100 WBC (Bld) 0.5 % Critically low 0.9-7.0 [facility] [place] Comment on above: Performed By: #### V [id number] #### [facility] [address] [place] [address] Dr. Helio Cee Erythrocyte distribution width (RBC) [Ratio] 14.5 % Normal 11.0-15.0 [facility] [place] Comment on above: Performed By: #### V [id number] #### [facility] [address] [place] [address] Dr. Helio Cee Hematocrit (Bld) [Volume fraction] 36.6 % Normal 36.0-48.0 [facility] [place] Comment on above: Performed By: #### V [id number] #### [facility] [address] [place] [address] Dr. Helio Cee Hemoglobin (Bld) [Mass/Vol] 11.5 g/dL Critically low 12.0-16.0 [facility] [place] Comment on above: Performed By: #### V [id number] #### [facility] [address] [place] [address] Dr. Helio Cee IG # 0.07 10e3/ul Critically high 0.00-0.03 [facility] Comment on above: Performed By: #### V [id number] #### [facility] [address] [place] [address] Dr. Helio Cee IG % 0.5 % Normal 0.0-0.5 [facility] Comment on above: Performed By: #### V [id number] #### [facility] [address] [place] [address] Dr. Helio Cee LYMPH # 1.2 103/ul Normal 1.2-3.8 [facility] Comment on above: Performed By: #### V [id number] #### [facility] [address] [place] [address] Dr. Helio Cee Lymphocytes/100 WBC (Bld) 9.5 % Critically low 20.5-60.0 [facility] [place] Comment on above: Performed By: #### V [id number] #### [facility] [address] [place] [address] Dr. Helio Cee MANUAL DIFF REQ NO Normal [facility] Comment on above: Performed By: #### V [id number] #### [facility] [address] [place] [address] Dr. Helio Cee MCH (RBC) [Entitic mass] 30.2 pg Normal 26.7-34.0 [facility] [place] Comment on above: Performed By: #### V [id number] #### [facility] [address] [place] [address] Dr. Helio Cee MCHC (RBC) [Mass/Vol] 31.4 g/dL Normal 29.9-35.2 [facility] [place] Comment on above: Performed By: #### V [id number] #### [facility] [address] [place] [address] Dr. Helio Cee MCV (RBC) [Entitic vol] 96.1 fL Normal 81.0-99.0 [facility] Comment on above: Performed By: #### V [id number] #### [facility] [address] [place] [address] Dr. Helio Cee MONO # 0.7 103/ul Normal 0.3-0.8 [facility] [place] Comment on above: Performed By: #### V [id number] #### [facility] [address] [place] [address] Dr. Helio Cee Monocytes/100 WBC (Bld) 5.7 % Normal 1.7-12.0 [facility] Comment on above: Performed By: #### V [id number] #### [facility] [address] [place] [address] Dr. Helio Cee NEUT # 10.8 103/ul Critically high 1.4-6.5 [facility] Comment on above: Performed By: #### V [id number] #### [facility] [address] [address] [address] Helio Cee Neutrophils/100 WBC (Bld) 83.5 % Critically high 43.0-75.0 [facility] [place] Comment on above: Performed By: #### V [id number] #### [facility] [address] [address] [address] Helio Cee Platelet mean volume (Bld) [Entitic vol] 11.1 fL Normal 9.5-13.5 [facility] [place] Comment on above: Performed By: #### V [id number] #### [facility] [address] [address] [address] Helio Cee PLT 231 103/ul Normal 150-450 [facility] [place] Comment on above: Performed By: #### V [id number] #### [facility] [address] [place] [address] Dr. Helio Cee RBC 3.81 106/ul Critically low 4.20-5.40 [facility] Comment on above: Performed By: #### V [id number] #### [facility] [address] [address] [address] Helio Cee WBC 13.0 103/ul Critically high 4.0-11.0 [facility] Comment on above: Performed By: #### V [id number] #### [facility] [address] [place] [address] Dr. Helio Cee PROF 14(COMP METB)on 022 Albumin [Mass/Vol] 2.9 g/dL Critically low 3.4-5.0 [facility] Comment on above: Performed By: #### E RUR #### [facility] [address] [place] [address] Dr. Helio Cee Albumin/Globulin [Mass ratio] 0.8 {ratio} Normal [facility] [place] Comment on above: Performed By: #### E RUR #### [facility] [address] [address] [address] Helio Cee ALP [Catalytic activity/Vol] 81 U/L Normal 46-116 [facility] [place] Comment on above: Performed By: #### E RUR #### [facility] [address] [address] [address] Helio Cee ALT [Catalytic activity/Vol] 21 U/L Normal 14-59 [facility] [place] Comment on above: Performed By: #### E RUR #### [facility] [address] [address] [address] Helio Cee Anion gap [Moles/Vol] 12.4 mmol/L Normal Th [facility] Comment on above: Performed By: #### E RUR #### [facility] [address] [address] [address] Helio Cee AST [Catalytic activity/Vol] 11 U/L Critically low 15-37 [facility] [place] Comment on above: Performed By: #### E RUR #### [facility] [address] [place] [address] Dr. Helio Cee Bilirubin [Mass/Vol] 0.4 mg/dL Normal 0.2-1.0 [facility] [place] Comment on above: Performed By: #### E RUR #### [facility] [address] [place] [address] Dr. Helio Cee Calcium [Mass/Vol] 8.7 mg/dL Normal 8.5-10.1 [facility] Comment on above: Performed By: #### E RUR #### [facility] [address] [place] [address] Dr. Helio Cee Chloride [Moles/Vol] 108 mmol/L Critically high 98-107 [facility] Comment on above: Performed By: #### E RUR #### [facility] [address] [place] [address] Dr. Helio Cee CO2 [Moles/Vol] 24.2 mmol/L Normal 21.0-32.0 [facility] Comment on above: Performed By: #### E RUR #### [facility] [address] [place] [address] Dr. Helio Cee Creatinine [Mass/Vol] 1.03 mg/dL Critically high 0.55-1.02 [facility] [place] Comment on above: Performed By: #### E RUR #### [facility] [address] [address] [address] Helio Cee EGFR-AF ANGUILLAN >60 Normal >=60 [facility] Comment on above: Performed By: #### E RUR #### [facility] [address] [address] [address] Helio Cee EGFR-NON AF ANGUILLAN 52 mL/min/1.73m2 Critically low >=60 [facility] [place] Comment on above: Performed By: #### E RUR #### [facility] [address] [address] [address] Helio Cee Globulin (S) [Mass/Vol] 3.5 g/dL Normal [facility] Comment on above: Performed By: #### E RUR #### [facility] [address] [place] [address] Dr. Helio Cee Glucose [Mass/Vol] 142 mg/dL Critically high 74-106 [facility] Comment on above: Performed By: #### E RUR #### [facility] [address] [address] [address] Helio Cee Potassium [Moles/Vol] 3.6 mmol/L Normal 3.5-5.1 [facility] [place] Comment on above: Performed By: #### E RUR #### [facility] [address] [place] [address] Dr. Helio Cee Protein [Mass/Vol] 6.4 g/dL Normal 6.4-8.2 [facility] Comment on above: Performed By: #### E RUR #### [facility] [address] [place] [address] Dr. Helio Cee Sodium [Moles/Vol] 141 mmol/L Normal 136-145 [facility] Comment on above: Performed By: #### E RUR #### [facility] [address] [address] [address] Helio Cee Urea nitrogen [Mass/Vol] 19.0 mg/dL Critically high 7.0-18.0 [facility] [place] Comment on above: Performed By: #### E RUR #### [facility] [address] [address] [address] Helio Cee Urea nitrogen/Creatinine [Mass ratio] 18.4 mg/mg Normal [facility] [place] Comment on above: Performed By: #### E RUR #### [facility] [address] [place] [address] Dr. Helio Cee XR CHEST 2 Von [...] by: EUN BARRY Date: 2021-11-20 07:56 Normal [facility] [place] BNPon 11-19-2021 Natriuretic peptide B (Bld) [Mass/Vol] 777.0 pg/mL Normal <=900.0 [facility] [place] Comment on above: Performed By: #### E RUR #### [facility] [address] [place] [address] Dr. Helio Cee CBC AUTO DIFFon 11-19-2021 BASO # 0.0 103/ul Normal 0.0-0.1 [facility] [place] Comment on above: Performed By: #### V [id number] #### [facility] [address] [place] [address] Dr. Helio Cee Basophils/100 WBC (Bld) 0.2 % Normal 0.2-2.0 [facility] Comment on above: Performed By: #### V [id number] #### [facility] [address] [place] [address] Dr. Helio Cee EO # 0.1 103/ul Normal 0.0-0.7 [facility] [place] Comment on above: Performed By: #### V [id number] #### [facility] [address] [place] [address] Dr. Helio Cee Eosinophils/100 WBC (Bld) 0.5 % Critically low 0.9-7.0 [facility] [place] Comment on above: Performed By: #### V [id number] #### [facility] [address] [place] [address] Dr. Helio Cee Erythrocyte distribution width (RBC) [Ratio] 14.6 % Normal 11.0-15.0 [facility] [place] Comment on above: Performed By: #### V [id number] #### [facility] [address] [place] [address] Dr. Helio Cee Hematocrit (Bld) [Volume fraction] 37.4 % Normal 36.0-48.0 [facility] [place] Comment on above: Performed By: #### V [id number] #### [facility] [address] [place] [address] Dr. Helio Cee Hemoglobin (Bld) [Mass/Vol] 11.5 g/dL Critically low 12.0-16.0 [facility] [place] Comment on above: Performed By: #### V [id number] #### [facility] [address] [place] [address] Dr. Helio Cee IG # 0.07 10e3/ul Critically high 0.00-0.03 [facility] Comment on above: Performed By: #### V [id number] #### [facility] [address] [place] [address] Dr. Helio Cee IG % 0.5 % Normal 0.0-0.5 [facility] [place] Comment on above: Performed By: #### V [id number] #### [facility] [address] [place] [address] Dr. Helio Cee LYMPH # 1.1 103/ul Critically low 1.2-3.8 [facility] Comment on above: Performed By: #### V [id number] #### [facility] [address] [place] [address] Dr. Helio Cee Lymphocytes/100 WBC (Bld) 6.8 % Critically low 20.5-60.0 [facility] [place] Comment on above: Performed By: #### V [id number] #### [facility] [address] [place] [address] Dr. Helio Cee MANUAL DIFF REQ NO Normal [facility] Comment on above: Performed By: #### V [id number] #### [facility] [address] [place] [address] Dr. Helio Cee MCH (RBC) [Entitic mass] 30.1 pg Normal 26.7-34.0 [facility] [place] Comment on above: Performed By: #### V [id number] #### [facility] [address] [place] [address] Dr. Helio Cee MCHC (RBC) [Mass/Vol] 30.7 g/dL Normal 29.9-35.2 [facility] [place] Comment on above: Performed By: #### V [id number] #### [facility] [address] [place] [address] Dr. Helio Cee MCV (RBC) [Entitic vol] 97.9 fL Normal 81.0-99.0 [facility] Comment on above: Performed By: #### V [id number] #### [facility] [address] [place] [address] Dr. Helio Cee MONO # 0.8 103/ul Normal 0.3-0.8 [facility] [place] Comment on above: Performed By: #### V [id number] #### [facility] [address] [place] [address] Dr. Helio Cee Monocytes/100 WBC (Bld) 5.3 % Normal 1.7-12.0 [facility] Comment on above: Performed By: #### V [id number] #### [facility] [address] [place] [address] Dr. Helio Cee NEUT # 13.3 103/ul Critically high 1.4-6.5 [facility] Comment on above: Performed By: #### V [id number] #### [facility] [address] [place] [address] Dr. Helio Cee Neutrophils/100 WBC (Bld) 86.7 % Critically high 43.0-75.0 [facility] [place] Comment on above: Performed By: #### V [id number] #### [facility] [address] [place] [address] Dr. Helio Cee Platelet mean volume (Bld) [Entitic vol] 11.4 fL Normal 9.5-13.5 [facility] [place] Comment on above: Performed By: #### V [id number] #### [facility] [address] [place] [address] Dr. Helio Cee PLT 215 103/ul Normal 150-450 [facility] [place] Comment on above: Performed By: #### V [id number] #### [facility] [address] [place] [address] Dr. Helio Cee RBC 3.82 106/ul Critically low 4.20-5.40 [facility] Comment on above: Performed By: #### V [id number] #### [facility] [address] [place] [address] Dr. Helio Cee WBC 15.3 103/ul Critically high 4.0-11.0 [facility] Comment on above: Performed By: #### V [id number] #### [facility] [address] [place] [address] Dr. Helio Cee PROF 14(COMP METB)on 022 Albumin [Mass/Vol] 2.8 g/dL Critically low 3.4-5.0 [facility] Comment on above: Performed By: #### E RUR #### [facility] [address] [place] [address] Dr. Helio Cee Albumin/Globulin [Mass ratio] 0.8 {ratio} Normal [facility] [place] Comment on above: Performed By: #### E RUR #### [facility] [address] [place] [address] Dr. Helio Cee ALP [Catalytic activity/Vol] 74 U/L Normal 46-116 [facility] Comment on above: Performed By: #### E RUR #### [facility] [address] [place] [address] Dr. Helio Cee ALT [Catalytic activity/Vol] 21 U/L Normal 14-59 [facility] [place] Comment on above: Performed By: #### E RUR #### [facility] [address] [place] [address] Dr. Helio Cee Anion gap [Moles/Vol] 13.5 mmol/L Normal Th [facility] Comment on above: Performed By: #### E RUR #### [facility] [address] [place] [address] Dr. Helio Cee AST [Catalytic activity/Vol] 11 U/L Critically low 15-37 [facility] [place] Comment on above: Performed By: #### E RUR #### [facility] [address] [place] [address] Dr. Helio Cee Bilirubin [Mass/Vol] 0.5 mg/dL Normal 0.2-1.0 [facility] [place] Comment on above: Performed By: #### E RUR #### [facility] [address] [place] [address] Dr. Helio Cee Calcium [Mass/Vol] 8.4 mg/dL Critically low 8.5-10.1 [facility] Comment on above: Performed By: #### E RUR #### [facility] [address] [place] [address] Dr. Helio Cee Chloride [Moles/Vol] 107 mmol/L Normal 98-107 [facility] [place] Comment on above: Performed By: #### E RUR #### [facility] [address] [place] [address] Dr. Helio Cee CO2 [Moles/Vol] 21.0 mmol/L Normal 21.0-32.0 [facility] Comment on above: Performed By: #### E RUR #### [facility] [address] [place] [address] Dr. Helio Cee Creatinine [Mass/Vol] 1.07 mg/dL Critically high 0.55-1.02 [facility] [place] Comment on above: Performed By: #### E RUR #### [facility] [address] [place] [address] Dr. Helio Cee EGFR-AF ANGUILLAN >60 Normal >=60 [facility] Comment on above: Performed By: #### E RUR #### [facility] [address] [place] [address] Dr. Helio Cee EGFR-NON AF ANGUILLAN 50 mL/min/1.73m2 Critically low >=60 [facility] [place] Comment on above: Performed By: #### E RUR #### [facility] [address] [place] [address] Dr. Helio Cee Globulin (S) [Mass/Vol] 3.4 g/dL Normal [facility] Comment on above: Performed By: #### E RUR #### [facility] [address] [place] [address] Dr. Helio Cee Glucose [Mass/Vol] 109 mg/dL Critically high 74-106 [facility] Comment on above: Performed By: #### E RUR #### [facility] [address] [place] [address] Dr. Helio Cee Potassium [Moles/Vol] 3.5 mmol/L Normal 3.5-5.1 [facility] [place] Comment on above: Performed By: #### E RUR #### [facility] [address] [place] [address] Dr. Helio Cee Protein [Mass/Vol] 6.2 g/dL Critically low 6.4-8.2 [facility] Comment on above: Performed By: #### E RUR #### [facility] [address] [place] [address] Dr. Helio Cee Sodium [Moles/Vol] 138 mmol/L Normal 136-145 [facility] Comment on above: Performed By: #### E RUR #### [facility] [address] [place] [address] Dr. Helio Cee Urea nitrogen [Mass/Vol] 25.0 mg/dL Critically high 7.0-18.0 [facility] [place] Comment on above: Performed By: #### E RUR #### [facility] [address] [place] [address] Dr. Helio Cee Urea nitrogen/Creatinine [Mass ratio] 23.4 mg/mg Normal [facility] [place] Comment on above: Performed By: #### E RUR #### [facility] [address] [place] [address] Dr. Helio Cee BNPon 07-08-2022 Natriuretic peptide B (Bld) [Mass/Vol] 386.0 pg/mL Normal <=900.0 [facility] [place] Comment on above: Performed By: #### B SCOUTS, HSTROPN, BMP ####[facility] [id number] [address]Dr. Helio Cee CBC AUTO DIFFon 11-18-2021 BASO # 0.0 103/ul Normal 0.0-0.1 [facility] [place] Comment on above: Performed By: #### V [id number] #### [facility] [address] [address] [address] Helio Cee Basophils/100 WBC (Bld) 0.3 % Normal 0.2-2.0 [facility] Comment on above: Performed By: #### V [id number] #### [facility] [address] [address] [address] Helio Cee EO # 0.0 103/ul Normal 0.0-0.7 [facility] [place] Comment on above: Performed By: #### V [id number] #### [facility] [address] [address] [address] Helio Cee Eosinophils/100 WBC (Bld) 0.1 % Critically low 0.9-7.0 [facility] [place] Comment on above: Performed By: #### V [id number] #### [facility] [address] [address] [address] Helio Cee Erythrocyte distribution width (RBC) [Ratio] 14.4 % Normal 11.0-15.0 [facility] [place] Comment on above: Performed By: #### V [id number] #### [facility] [address] [address] [address] Helio Cee Hematocrit (Bld) [Volume fraction] 43.6 % Normal 36.0-48.0 [facility] [place] Comment on above: Performed By: #### V [id number] #### [facility] [address] [address] [address] Helio Cee Hemoglobin (Bld) [Mass/Vol] 13.4 g/dL Normal 12.0-16.0 [facility] [place] Comment on above: Performed By: #### V [id number] #### [facility] [address] [place] [address] Dr. Helio Cee IG # 0.03 10e3/ul Normal 0.00-0.03 [facility] [place] Comment on above: Performed By: #### V [id number] #### [facility] [address] [place] [address] Dr. Helio Cee IG % 0.3 % Normal 0.0-0.5 [facility] [place] Comment on above: Performed By: #### V [id number] #### [facility] [address] [place] [address] Dr. Helio Cee LYMPH # 0.4 103/ul Critically low 1.2-3.8 [facility] Comment on above: Performed By: #### V [id number] #### [facility] [address] [place] [address] Dr. Helio Cee Lymphocytes/100 WBC (Bld) 4.0 % Critically low 20.5-60.0 [facility] [place] Comment on above: Performed By: #### V [id number] #### [facility] [address] [place] [address] Dr. Helio Cee MANUAL DIFF REQ NO Normal [facility] Comment on above: Performed By: #### V [id number] #### [facility] [address] [place] [address] Dr. Helio Cee MCH (RBC) [Entitic mass] 29.6 pg Normal 26.7-34.0 [facility] [place] Comment on above: Performed By: #### V [id number] #### [facility] [address] [place] [address] Dr. Helio Cee MCHC (RBC) [Mass/Vol] 30.7 g/dL Normal 29.9-35.2 [facility] [place] Comment on above: Performed By: #### V [id number] #### [facility] [address] [place] [address] Dr. Helio Cee MCV (RBC) [Entitic vol] 96.5 fL Normal 81.0-99.0 [facility] Comment on above: Performed By: #### V [id number] #### [facility] [address] [address] [address] Helio Cee MONO # 0.6 103/ul Normal 0.3-0.8 [facility] [place] Comment on above: Performed By: #### V [id number] #### [facility] [address] [place] [address] Dr. Helio Cee Monocytes/100 WBC (Bld) 5.4 % Normal 1.7-12.0 [facility] Comment on above: Performed By: #### V [id number] #### [facility] [address] [place] [address] Dr. Helio Cee NEUT # 9.7 103/ul Critically high 1.4-6.5 [facility] Comment on above: Performed By: #### V [id number] #### [facility] [address] [place] [address] Dr. Helio Cee Neutrophils/100 WBC (Bld) 89.9 % Critically high 43.0-75.0 [facility] [place] Comment on above: Performed By: #### V [id number] #### [facility] [address] [place] [address] Dr. Helio Cee Platelet mean volume (Bld) [Entitic vol] 10.9 fL Normal 9.5-13.5 [facility] [place] Comment on above: Performed By: #### V [id number] #### [facility] [address] [place] [address] Dr. Helio Cee PLT 265 103/ul Normal 150-450 [facility] Comment on above: Performed By: #### V [id number] #### [facility] [address] [place] [address] Dr. Helio Cee RBC 4.52 106/ul Normal 4.20-5.40 [facility] Comment on above: Performed By: #### V [id number] #### [facility] [address] [place] [address] Dr. Helio Cee WBC 10.7 103/ul Normal 4.0-11.0 [facility] [place] Comment on above: Performed By: #### V [id number] #### [facility] [address] [place] [address] Dr. Helio Cee CULTURE BLOODon 11-18-2021 Microscopic examination of blood, culture Culture Observations: NO GROWTH AT 5 DAYS. Normal [facility] Comment on above: Performed By: #### B [id number] #### [facility] [address] [address] [address] Helio Cee Microscopic examination of blood, culture Culture Observations: NO GROWTH AT 5 DAYS. Normal [facility] Comment on above: Performed By: #### B [id number] #### [facility] [address] [place] [address] Dr. Helio C[facility]on SARS-CoV-2 (COVID-19) RNA KIMMY+probe Ql (Unsp spec) Not detected Normal NOT DETECTED [facility] Comment on above: Result Comment: When [...] for this test is supported by the Irrigating Pump Operator of Health and Human Service's declaration [...] used). Performed By: #### E RUR #### [facility] [address] [place] [address] Dr. Helio Cee ER URINE PROFILEon 2 Bilirubin Ql (U) Negative Normal NEGATIVE [facility] Comment on above: Performed By: #### E RUR #### [facility] [address] [place] [address] Dr. Helio Cee Clarity (U) CLEAR Normal CLEAR [facility] Comment on above: Performed By: #### E RUR #### [facility] [address] [place] [address] Dr. Helio Cee Color (U) LT. YELLOW Normal YELLOW [facility] [place] Comment on above: Performed By: #### E RUR #### [facility] [address] [place] [address] Dr. Helio Cee ERUAHD A micrscopic examination will be performed if indicated. Normal [facility] Comment on above: Performed By: #### E RUR #### [facility] [address] [place] [address] Dr. Helio Cee Glucose Ql (U) Negative Normal NEGATIVE [facility] Comment on above: Performed By: #### E RUR #### [facility] [address] [place] [address] Dr. Helio Cee Hemoglobin Ql (U) Negative Normal NEGATIVE [facility] Comment on above: Performed By: #### E RUR #### [facility] [address] [place] [address] Dr. Helio Cee Ketones Ql (U) Negative Normal NEGATIVE [facility] [place] Comment on above: Performed By: #### E RUR #### [facility] [address] [place] [address] Dr. Helio Cee LEUKOCYTES Negative Normal NEGATIVE [facility] [place] Comment on above: Performed By: #### E RUR #### [facility] [address] [place] [address] Dr. Helio Cee Nitrite Ql (U) Negative Normal NEGATIVE [facility] [place] Comment on above: Performed By: #### E RUR #### [facility] [address] [place] [address] Dr. Helio Cee pH (U) 5.5 [pH] Normal 5-9 [facility] [place] Comment on above: Performed By: #### E RUR #### [facility] [address] [place] [address] Dr. Helio Cee SPEC GRAVITY 1.015 Normal 1.005-<=1.[address] [place] [address] Comment on above: Performed By: #### E RUR #### [facility] [address] [address] [address] Helio Cee UA PROTEIN Negative Normal NEGATIVE/ TRACE [facility] [place] Comment on above: Performed By: #### E RUR #### [facility] [address] [address] [address] Helio Cee UR MICRO IND NOT INDICATED Normal [facility] Comment on above: Performed By: #### E RUR #### [facility] [address] [address] [address] Helio Cee Urobilinogen Qn (U) 0.2 {Nevaeh'U}/dL Normal 0.2 - 1. 0 [facility] [place] Comment on above: Performed By: #### E RUR #### [facility] [address] [address] [address] Helio Cee PROF CHEM 8 (BAS METB)on Anion gap [Moles/Vol] 13.6 mmol/L Normal [facility] Comment on above: Performed By: #### B SCOUTS, HSTROPN, BMP ####[facility] [address] [address]Dr. Helio Cee Calcium [Mass/Vol] 9.1 mg/dL Normal 8.5-10.1 [facility] Comment on above: Performed By: #### B SCOUTS, HSTROPN, BMP ####[facility] [address] [address]Dr. Helio Cee Chloride [Moles/Vol] 110 mmol/L Critically high 98-107 [facility] [place] Comment on above: Performed By: #### B SCOUTS, HSTROPN, BMP ####[facility] [address] [address]Dr. Helio Cee CO2 [Moles/Vol] 22.9 mmol/L Normal 21.0-32.0 [facility] Comment on above: Performed By: #### B SCOUTS, HSTROPN, BMP ####[facility] [address] [address]Dr. Helio Cee Creatinine [Mass/Vol] 1.47 mg/dL Critically high 0.55-1.02 [facility] [place] Comment on above: Performed By: #### B SCOUTS, HSTROPN, BMP ####[facility] [address] [address]Dr. Helio Cee EGFR-AF ANGUILLAN 42 mL/min/1.73m2 Critically low >=60 [facility] [place] Comment on above: Performed By: #### B SCOUTS, HSTROPN, BMP ####[facility] [address] [address]Dr. Helio Cee EGFR-NON AF ANGUILLAN 35 mL/min/1.73m2 Critically low >=60 [facility] [place] Comment on above: Performed By: #### B SCOUTS, HSTROPN, BMP ####[facility] [address] [address]Dr. Helio Cee Glucose [Mass/Vol] 120 mg/dL Critically high 74-106 [facility] Comment on above: Performed By: #### B SCOUTS, HSTROPN, BMP ####[facility] [address] [address]Dr. Helio Cee Potassium [Moles/Vol] 3.5 mmol/L Normal 3.5-5.1 [facility] [place] Comment on above: Performed By: #### B SCOUTS, HSTROPN, BMP ####[facility] [address] [address]Dr. Helio Cee Sodium [Moles/Vol] 143 mmol/L Normal 136-145 [facility] Comment on above: Performed By: #### B SCOUTS, HSTROPN, BMP ####[facility] [address] [address]Dr. Helio Cee Urea nitrogen [Mass/Vol] 29.0 mg/dL Critically high 7.0-18.0 [facility] [place] Comment on above: Performed By: #### B SCOUTS, HSTROPN, BMP ####[facility] [address] [address]Dr. Helio Cee Urea nitrogen/Creatinine [Mass ratio] 19.7 mg/mg Normal [facility] Comment on above: Performed By: #### B SCOUTS, HSTROPN, GET ####[facility] [address] [place], [place] [address]ZvCarlos Cee TROPONIN, HIGH SENSITIVITYon 11-18-2021 HSTROP 8.2 pg/mL Normal 4.0-51.3 [facility] [place] Comment on above: Result Comment: CUT- OFF POINTS HAVE BEEN ESTABLISHED BASED ON THE FOURTH UNIVERSAL DEFINITIONS OF MYOCARDIAL INFARCTION. THE UPPER REFERENCE LIMIT (URL) OF TROPONIN, DEFINED THE 99TH PERCENTILE OF cTnI DISTRIBUTION IN A REFERENCE POPULATION, HAS BEEN CONFIRMED THE DECISION THRESHOLD FOR DE DIAGNOSIS. Performed By: #### B SCOUTS, HSTROPN, GET ####[facility] [address] [place], [place] [address]Ct. Helio Cee XR CHEST 1 Von 11-18-2021 [...] EHSAN MILLER Date: 2021-11-18 10:38 Normal [facility] BNPon 10-25-2021 Natriuretic peptide B (Bld) [Mass/Vol] 396.0 pg/mL Normal <=900.0 [facility] [place] Comment on above: Performed By: #### V [id number] #### [facility] [address] [place], [place] [address] Dr. Helio Cee CBC AUTO DIFFon 10-25-2021 BASO # 0.1 103/ul Normal 0.0-0.1 [facility] [place] Comment on above: Performed By: #### E RUR #### [facility] [address] [place], [place] [address] Dr. Helio Cee Basophils/100 WBC (Bld) 1.0 % Normal 0.2-2.0 T [facility] Comment on above: Performed By: #### E RUR #### [facility] [address] [place] [address] Dr. Helio Cee EO # 0.2 103/ul Normal 0.0-0.7 [facility] [place] Comment on above: Performed By: #### E RUR #### [facility] [address] [place] [address] Dr. Helio Cee Eosinophils/100 WBC (Bld) 2.7 % Normal 0.9-7.0 [facility] [place] Comment on above: Performed By: #### E RUR #### [facility] [address] [place] [address] Dr. Helio Cee Erythrocyte distribution width (RBC) [Ratio] 14.6 % Normal 11.0-15.0 [facility] [place] Comment on above: Performed By: #### E RUR #### [facility] [address] [place] [address] Dr. Helio Cee Hematocrit (Bld) [Volume fraction] 44.8 % Normal 36.0-48.0 [facility] [place] Comment on above: Performed By: #### E RUR #### [facility] [address] [place] [address] Dr. Helio Cee Hemoglobin (Bld) [Mass/Vol] 13.8 g/dL Normal 12.0-16.0 [facility] [place] Comment on above: Performed By: #### E RUR #### [facility] [address] [place] [address] Dr. Helio Cee IG # 0.03 10e3/ul Normal 0.00-0.03 [facility] [place] Comment on above: Performed By: #### E RUR #### [facility] [address] [place] [address] Dr. Helio Cee IG % 0.3 % Normal 0.0-0.5 [facility] [place] Comment on above: Performed By: #### E RUR #### [facility] [address] [place] [address] Dr. Helio Cee LYMPH # 1.6 103/ul Normal 1.2-3.8 [facility] [place] Comment on above: Performed By: #### E RUR #### [facility] [address] [place] [address] Dr. Helio Cee Lymphocytes/100 WBC (Bld) 18.5 % Critically low 20.5-60.0 [facility] [place] Comment on above: Performed By: #### E RUR #### [facility] [address] [place] [address] Dr. Helio Cee MANUAL DIFF REQ NO Normal [facility] Comment on above: Performed By: #### E RUR #### [facility] [address] [place] [address] Dr. Helio Cee MCH (RBC) [Entitic mass] 29.9 pg Normal 26.7-34.0 [facility] [place] Comment on above: Performed By: #### E RUR #### [facility] [address] [place] [address] Dr. Helio Cee MCHC (RBC) [Mass/Vol] 30.8 g/dL Normal 29.9-35.2 [facility] [place] Comment on above: Performed By: #### E RUR #### [facility] [address] [place] [address] Dr. Helio Cee MCV (RBC) [Entitic vol] 97.2 fL Normal 81.0-99.0 [facility] Comment on above: Performed By: #### E RUR #### [facility] [address] [place] [address] Dr. Helio Cee MONO # 0.6 103/ul Normal 0.3-0.8 [facility] [place] Comment on above: Performed By: #### E RUR #### [facility] [address] [place] [address] Dr. Helio Cee Monocytes/100 WBC (Bld) 7.0 % Normal 1.7-12.0 [facility] Comment on above: Performed By: #### E RUR #### [facility] [address] [place] [address] Dr. Helio Cee NEUT # 6.1 103/ul Normal 1.4-6.5 [facility] [place] Comment on above: Performed By: #### E RUR #### [facility] [address] [place] [address] Dr. Helio Cee Neutrophils/100 WBC (Bld) 70.5 % Normal 43.0-75.0 [facility] [place] Comment on above: Performed By: #### E RUR #### [facility] [address] [place] [address] Dr. Helio Cee Platelet mean volume (Bld) [Entitic vol] 11.0 fL Normal 9.5-13.5 [facility] [place] Comment on above: Performed By: #### E RUR #### [facility] [address] [place] [address] Dr. Helio Cee PLT 292 103/ul Normal 150-450 [facility] [place] Comment on above: Performed By: #### E RUR #### [facility] [address] [place] [address] Dr. Helio Cee RBC 4.61 106/ul Normal 4.20-5.40 [facility] [place] Comment on above: Performed By: #### E RUR #### [facility] [address] [place] [address] Dr. Helio Cee WBC 8.6 103/ul Normal 4.0-11.0 [facility] [place] Comment on above: Performed By: #### E RUR #### [facility] [address] [place] [address] Dr. Helio Cee ECHOCARDIO M/2D COMPLETEon 0 10-25-2021 ECHOCARDIO M/2D COMPLETE Patient: AARON JJ Exam Date: 10/25/2021 : 1945 Gender:F Ordering : DR JEREMIAH REED M.D. Admission #: [id number] Family : Order #: [id number] CLICK HERE TO VIEW EXAM ECHOCARDIOGRAM REPORT [...] Area(A4C): 20.40 cm2 Left Atrium Systolic Volume(A2C): 76969 mm3 Left Atrium Systolic Volume(A4C): 05822 mm3 Mitral Valve MV E to A Ratio: 0.80 Deceleration Todd: 4670 mm/s2 Mitral Valve A-Wave Peak Velocity: [...] Cheema M.D. on 10/25/2021 at 19:31 Normal [facility] [place] MAMM SCREEN 3D EBONI CADon 10-25-2021 MG MAMM SCREEN 3D EBONI CAD Patient: AARON JJ Exam Date: 10/25/2021 : 1945 Gender:F Ordering : DR JEREMIAH REED M.D. Admission #: [id number] Family : Order #: [id number] CLICK HERE TO VIEW EXAM RADIOLOGY REPORT [...] breast cancer at age 72. LOCATION: [facility] BREAST COMPOSITION: Heterogeneously dense,which may obscure [...] Miller M.D. on 10/25/2021 at 15:33 Normal [facility] [place] PROF 14(COMP METB)on 022 Albumin [Mass/Vol] 3.8 g/dL Normal 3.4-5.0 [facility] Comment on above: Performed By: #### V [id number] #### [facility] [address] [place] [address] Dr. Helio Cee Albumin/Globulin [Mass ratio] 1.1 {ratio} Normal [facility] [place] Comment on above: Performed By: #### V [id number] #### [facility] [address] [place] [address] Dr. Helio Cee ALP [Catalytic activity/Vol] 97 U/L Normal 46-116 [facility] [place] Comment on above: Performed By: #### V [id number] #### [facility] [address] [place] [address] Dr. Helio Cee ALT [Catalytic activity/Vol] 31 U/L Normal 14-59 [facility] [place] Comment on above: Performed By: #### V [id number] #### [facility] [address] [place] [address] Dr. Helio Cee Anion gap [Moles/Vol] 11.0 mmol/L Normal [facility] Comment on above: Performed By: #### V [id number] #### [facility] [address] [place] [address] Dr. Helio Cee AST [Catalytic activity/Vol] 13 U/L Critically low 15-37 [facility] [place] Comment on above: Performed By: #### V [id number] #### [facility] [address] [place] [address] Dr. Helio Cee Bilirubin [Mass/Vol] 0.4 mg/dL Normal 0.2-1.0 [facility] [place] Comment on above: Performed By: #### V [id number] #### [facility] [address] [place] [address] Dr. Helio Cee Calcium [Mass/Vol] 9.3 mg/dL Normal 8.5-10.1 [facility] Comment on above: Performed By: #### V [id number] #### [facility] [address] [address] [address] Helio Cee Chloride [Moles/Vol] 108 mmol/L Critically high 98-107 [facility] [place] Comment on above: Performed By: #### V [id number] #### [facility] [address] [address] [address] Helio Cee CO2 [Moles/Vol] 28.4 mmol/L Normal 21.0-32.0 [facility] Comment on above: Performed By: #### V [id number] #### [facility] [address] [place] [address] Dr. Helio Cee Creatinine [Mass/Vol] 1.09 mg/dL Critically high 0.55-1.02 [facility] [place] Comment on above: Performed By: #### V [id number] #### [facility] [address] [place] [address] Dr. Helio Cee EGFR-AF ANGUILLAN 59 mL/min/1.73m2 Critically low >=60 [facility] [place] Comment on above: Performed By: #### V [id number] #### [facility] [address] [place] [address] Dr. Helio Cee EGFR-NON AF ANGUILLAN 49 mL/min/1.73m2 Critically low >=60 [facility] [place] Comment on above: Performed By: #### V [id number] #### [facility] [address] [place] [address] Dr. Helio Cee Globulin (S) [Mass/Vol] 3.4 g/dL Normal T [facility] Comment on above: Performed By: #### V [id number] #### [facility] [address] [address] [address] Helio Cee Glucose [Mass/Vol] 100 mg/dL Normal 74-106 [facility] Comment on above: Performed By: #### V [id number] #### [facility] [address] [place] [address] Dr. Helio Cee Potassium [Moles/Vol] 4.4 mmol/L Normal 3.5-5.1 [facility] [place] Comment on above: Performed By: #### V [id number] #### [facility] [address] [address] [address] Helio Cee Protein [Mass/Vol] 7.2 g/dL Normal 6.4-8.2 [facility] Comment on above: Performed By: #### V [id number] #### [facility] [address] [address] [address] Helio Cee Sodium [Moles/Vol] 143 mmol/L Normal 136-145 [facility] Comment on above: Performed By: #### V [id number] #### [facility] [address] [address] [address] Helio Cee Urea nitrogen [Mass/Vol] 24.0 mg/dL Critically high 7.0-18.0 [facility] [place] Comment on above: Performed By: #### V [id number] #### [facility] [address] [place] [address] Dr. Helio Cee Urea nitrogen/Creatinine [Mass ratio] 22.0 mg/mg Normal [facility] [place] Comment on above: Performed By: #### V [id number] #### [facility] [address] [address] [address] Helio Cee TSHon 10-25-2021 TSH 0.635 uIU/mL Normal 0.358-3.740 [facility] Comment on above: Performed By: #### V [id number] #### [facility] [address] [place] [address] Dr. Helio Cee Vital Signs Date Time Vital Sign Value Performing Clinician Facility 12-25-2023 12:37-0400 Blood Pressure Location BRENDA MARIN [facility] 12-25-2023 12:37-0400 Body temperature 98.6 [degF] BRENDA MARIN [facility] 12-25-2023 12:37-0400 Diastolic blood pressure 86 mm[Hg] BRENDA MARIN [facility] 12-25-2023 12:37-0400 Heart rate 70 /min BRENDA MIAH [facility] 12-25-2023 12:37-0400 Respiratory rate 16 /min BRENDA MIAH [facility] 12-25-2023 12:37-0400 Systolic blood pressure 137 mm[Hg] BRENDA MIAH [facility] 09-26-2023 15:39-0400 Blood Pressure Location BRENDA MIAH [facility] 09-26-2023 15:39-0400 Diastolic blood pressure 84 mm[Hg] BRENDA MIAH [facility] 09-26-2023 15:39-0400 Heart rate 68 /min BRENDA MIAH [facility] 09-26-2023 15:39-0400 Respiratory rate 16 /min BRENDA MIAH [facility] 09-26-2023 15:39-0400 Systolic blood pressure 132 mm[Hg] BRENDA MIAH [facility] 08-28-2023 14:59-0400 Blood Pressure Location BRENDA MIAH [facility] 08-28-2023 14:59-0400 Body temperature 98.24 [degF] BRENAD MIAH [facility] 08-28-2023 14:59-0400 Diastolic blood pressure 80 mm[Hg] BRENDA MIAH [facility] 08-28-2023 14:59-0400 Heart rate 92 /min BRENDA MIAH [facility] 08-28-2023 14:59-0400 Respiratory rate 16 /min BRENDA MIAH [facility] 08-28-2023 14:59-0400 Systolic blood pressure 132 mm[Hg] BRENDA MIAH [facility] 06-05-2023 12:55-0500 Blood Pressure Location BRENDA MIAH [facility] 06-05-2023 12:55-0500 Diastolic blood pressure 88 mm[Hg] BRENDA MIAH [facility] 06-05-2023 12:55-0500 Heart rate 74 /min BRENDA MIAH [facility] 06-05-2023 12:55-0500 Respiratory rate 16 /min BRENDA MIAH [facility] 06-05-2023 12:55-0500 Systolic blood pressure 134 mm[Hg] BRENDA MIAH [facility] 04-30-2023 15:30-0500 Body height 161.29 cm Jeremiah Reed Other [facility] 04-30-2023 15:30-0500 Body mass index (BMI) [Ratio] 35.29 kg/m2 Jeremiah Reed Other [facility] 04-30-2023 15:30-0500 Body weight 91.81 kg Jeremiah Derek Other [facility] Other 04-30-2023 15:30-0500 Diastolic blood pressure 74 mm[Hg] Jeremiah Derek Other [facility] 04-30-2023 15:30-0500 Systolic blood pressure 109 mm[Hg] Jeremiah Derek Other [facility] 04-13-2023 14:40-0500 [facility] 04-13-2023 14:40-0500 [facility] 04-13-2023 13:00-0500 Diastolic blood pressure 77 mm[Hg] [facility] 04-13-2023 13:00-0500 Heart rate 78 /min [facility] 04-13-2023 13:00-0500 [facility] 04-13-2023 13:00-0500 [facility] 04-13-2023 13:00-0500 Respiratory rate 16 /min [facility] 04-13-2023 13:00-0500 Systolic blood pressure 127 mm[Hg] [facility] 04-13-2023 12:13-0500 Heart rate 80 /min [facility] 04-13-2023 12:13-0500 SaO2% (BldA) [Mass fraction] 95 % [facility] 04-13-2023 12:12-0500 Body temperature 97.16 [degF] [facility] 04-13-2023 12:11-0500 Diastolic blood pressure 78 mm[Hg] [facility] 04-13-2023 12:11-0500 Mean blood pressure 94 mm[Hg] E[facility]rain [facility] 04-13-2023 12:11-0500 Systolic blood pressure 125 mm[Hg] [facility] 12:00-0500 [facility] 04-13-2023 12:00-0500 [facility] 04-13-2023 09:10-0500 Diastolic blood pressure 70 mm[Hg] [facility] 04-13-2023 09:10-0500 Heart rate 87 /min [facility] 04-13-2023 09:10-0500 Mean blood pressure 90 mm[Hg] Jacintoag [facility] 04-13-2023 09:10-0500 Respiratory rate 17 /min [facility] 04-13-2023 09:10-0500 Systolic blood pressure 130 mm[Hg] [facility] 04-13-2023 08:00-0500 SaO2% (BldA) [Mass fraction] 93 % [facility] 04-13-2023 07:29-0500 Heart rate 89 /min [facility] 04-13-2023 07:29-0500 SaO2% (BldA) [Mass fraction] 94 % [facility] 04-13-2023 07:29-0500 Mean blood pressure 88 mm[Hg] Jacintoag ParminderAdena [facility] 04-13-2023 07:29-0500 Body temperature 97.88 [degF] Jacintoag [facility] 04-13-2023 05:00-0500 [facility] 04-13-2023 05:00-0500 Heart rate 95 /min [facility] 04-13-2023 05:00-0500 Mean blood pressure 100 mm[Hg] [facility] 04-13-2023 00:18-0500 Blood Pressure Location [facility] 04-13-2023 00:18-0500 Body temperature 97.52 [degF] [facility] 04-12-2023 20:33-0500 Body temperature 97.34 [degF] [facility] 04-12-2023 20:33-0500 Mean blood pressure 88 mm[Hg] [facility] 04-12-2023 18:03-0500 Blood Pressure Location [facility] 04-12-2023 16:49-0500 Respiratory rate 22 /min [facility] 04-12-2023 15:00-0500 Respiratory rate 20 /min [facility] 04-12-2023 12:24-0500 gluc 88 mg/dL [facility] 04-12-2023 12:24-0500 gluc [facility] 04-12-2023 12:19-0500 Body temperature 97.7 [degF] [facility] 03-29-2023 15:30-0500 Body height 161.29 cm Jeremiah Reed Other [facility] 03-29-2023 15:30-0500 Body mass index (BMI) [Ratio] 37.14 kg/m2 Jeremiah Reed Other [facility] Other 03-29-2023 15:30-0500 Body weight 96.62 kg Jeremiah Reed Other [facility] 03-29-2023 15:30-0500 Diastolic blood pressure 85 mm[Hg] Jeremiah Reed Other [facility] 03-29-2023 15:30-0500 Systolic blood pressure 144 mm[Hg] Jeremiah Reed Other [facility] Other 06-21-2022 14:42-0500 Blood Pressure Location BRENDA MARIN [facility] Encounters Encounter Date Encounter Type Care Provider Facility Start: 12-27-2023 End: 12-27-2023 ambulatory BRENDA MARIN Facility:[facility] Start: 12-27-2023 End: 12-27-2023 Patient encounter procedure BRENDA MARIN [facility] Start: 12-25-2023 End: 12-25-2023 ambulatory BRENDA MARIN Facility:[facility] Start: 12-25-2023 End: 12-25-2023 Patient encounter procedure BRENDA MARIN [facility] Start: 12-17-2023 End: 12-17-2023 ambulatory Drake Delatorre MD Facility:[facility] Start: 12-03-2023 End: 12-03-2023 ambulatory Cayden ROBB Facility:[facility] Start: 12-03-2023 End: 12-03-2023 Patient encounter procedure Cayden ROBB [facility] Start: 11-26-2023 End: 11-26-2023 ambulatory Alexandro CARMONA Facility:[facility] Start: 11-26-2023 End: 11-26-2023 Patient encounter procedure Alexandro CARMONA [facility] Start: 11-08-2023 End: 11-08-2023 ambulatory DIDIER MALDONADO Not Available Start: 10-29-2023 End: 10-29-2023 ambulatory Drake Delatorre MD Facility:[facility] Start: 10-15-2023 End: 10-15-2023 ambulatory Drake Delatorre MD Facility:[facility] Start: 09-26-2023 End: 09-26-2023 ambulatory BRENDA MARIN Facility:[facility] Start: 09-26-2023 End: 09-26-2023 Patient encounter procedure BRENDA MARIN [facility] Start: 09-17-2023 End: 09-17-2023 ambulatory Draek Delatorre MD Facility:[facility] Start: 08-30-2023 End: 08-30-2023 ambulatory DIDIER MALDONADO Not Available Start: 08-28-2023 End: 08-28-2023 ambulatory BRENDA MARIN Facility:[facility] Start: 08-28-2023 End: 08-28-2023 Patient encounter procedure BRENDA MARIN [facility] Start: 07-23-2023 End: 07-23-2023 ambulatory Cayden ROBB Facility:[facility] Start: 07-23-2023 End: 07-23-2023 Patient encounter procedure Cayden ROBB [facility] Start: 07-09-2023 End: 07-09-2023 ambulatory BRENDA MARIN Facility:[facility] Start: 06-20-2023 End: 06-20-2023 ambulatory Jeremiah Reed Other [facility] Other Start: 06-20-2023 Telephone encounter Jeremiah Reed [facility] Start: 06-05-2023 End: 06-05-2023 ambulatory BRENDA MARIN Facility:[facility] Start: 06-05-2023 End: 06-05-2023 Lab Drop off BRENDA MARIN [facility] Start: 06-05-2023 End: 06-05-2023 ambulatory BRENDA MARIN Facility:[facility] Start: 06-05-2023 End: 06-05-2023 Patient encounter procedure BRENDA Zulema SOLIMANRY [facility] Start: 04-30-2023 End: 04-30-2023 ambulatory Jeremiah Reed Other [facility] Other Start: 04-30-2023 Office outpatient vi sit 25 minutes Jeremiah Reed [facility] Start: 04-30-2023 Telephone encounter Jeremiah Reed [facility] Start: 04-17-2023 End: 04-17-2023 ambulatory Jeremiah Reed Other [facility] Other Start: 04-17-2023 Telephone encounter Jeremiah Reed [facility] Start: 04-13-2023 End: 04-13-2023 ambulatory Ray Fofana Other [facility] Other Start: 04-13-2023 Telephone encounter Ray Fofana [facility] Start: 04-12-2023 End: 04-13-2023 ambulatory Efrain Kurtz Facility:[facility] Start: 04-12-2023 End: 04-13-2023 Observation Efrain Kurtz [facility] Start: 04-09-2023 End: 04-09-2023 ambulatory Drake Delatorre MD Facility:[facility] Start: 03-30-2023 End: 03-30-2023 ambulatory Jeremiah Reed Other [facility] Other Start: 03-30-2023 Telephone encounter Jeremiah Reed [facility] Start: 03-29-2023 End: 03-29-2023 ambulatory Jeremiah Reed Other [place] [employer] Other Start: 03-29-2023 Transitional care manage srvc 14 day discharge Jeremiah Reed [facility] Start: 03-05-2023 End: 03-05-2023 ambulatory Drake Delatorre MD Facility:[facility] Start: 02-05-2023 End: 02-05-2023 ambulatory Drake Delatorre MD Facility:[facility] Start: 01-08-2023 End: 01-08-2023 ambulatory Drake Delatorre MD Facility:[facility] Start: 09-01-2022 End: 09-02-[address] JEREMIAH REED Facility:[facility] Start: 08-29-2022 End: 08-30-2022 ambulatory NARENDRANATH LAKSHMIPATHY . Facility:[facility] Start: 08-21-2022 End: 08-22-[address] EHSAN MILLER Facility:[facility] Start: 08-10-2022 End: 08-11-2022 ambulatory BRENT MALDONADO Facility:[facility] Start: 06-21-2022 End: 06-21-2022 Patient encounter procedure BRENDA MARIN [facility] Start: 06-12-2022 End: 06-13-[address] [...] encounter procedure Radha L Clinker [facility] Start: 08-21-2018 End: 08-21-2018 Patient encounter procedure Radha L Clinker Work Phone: [facility] Start: 06-28-2018 End: 06-28-2018 Patient encounter procedure Radha L Clinker Work Phone: [facility] Procedures Date Procedure Procedure Detail Performing Clinician Start: 12-03-2023 Cystoscopy BRENDA Hollins ERRNathan Start: 07-23-2023 Cystourethroscopy wi th dilation of urethral stricture BRENDA MARIN Start: 06-16-2016 Cystourethroscopy wi th dilation of urethral stricture BRENDA MARIN Appendectomy BRENDA MARIN Biopsy of breast BRENDA ACOSTA RRY Hysterectomy BRENDA MARIN Plan of Treatment Date Care Activity Detail Author Start: 10-26-2022 ambulatory Ambulatory Facility:[facility] Start: 01-12-2019 Influenza vaccination INFLUENZ A VACCINE (Season Ended) [facility] Start: 01-12-2018 Influenza vaccination INFLUENZA VACC INE (#1) [facility] Start: 02-10-2012 Pneumococcal vaccination PNEUM OCOCCAL VACCINE SERIES (1 of 2 - PCV13) [facility] Start: 1997 Protein mass conc COLON CANCER SCREENING DISCUSSION [facility] Start: 1997 Zoster vaccine hzv l derrell for subcutaneous use ZOSTER (SHINGLES) VACCINE (1 of 2) [facility] Start: 1987 Fasting lipid profile LIPID SCREENIN G [facility] Start: 1987 Protein mass conc MAMMOGRAM SC REENING DISCUSSION [facility] Start: 02-10-1968 Screening for malign ant neoplasm of cervix PAP SMEAR DISCUSSION [facility] Start: 1966 Third diphtheria, te tanus and acellular pertussis (DTaP) vaccination TDAP (ADULT) [facility] Start: 1965 Tetanus vaccination [facility] Start: 1947 Hepatitis C antibody , confirmatory test HEPATITIS C VIRUS SCREENING [facility] Start: 1947 Screening for osteoporosis DEXA SCAN DISCUSSION [facility] Immunizations Immunization Date Immunization Notes Care Provider Fa [facility] 03-31-2021 SARS-CoV-2 (COVID-19 ) mRNA BNT-162b2 vax BRENDA MARIN [facility] 07-21-2020 SARS-CoV-2 (COVID-19 ) Ad26 vaccine, recombinant BRENDA MARIN [facility] 04-11-2020 influenza virus vaccine, unspecified formulation BRENDA MARIN [facility] 02-02-2011 influenza virus vaccine, unspecified formulation BRENDA MARIN [facility] Payers Date Payer Category Payer Medicare 2022 Unknown 1959 Medicare [id number] 1959 Unknown [id number] 1947 Unknown [id number] 2.16.84 0.1.745266.3.579.2.593 1947 Unknown [id number] 2.16.84 0.1.308856.3.579.2.593 1947 Unknown [id number] 2.16.84 0.1.172391.3.579.2.593 1947 Unknown [id number] 2.16.84 0.1.422925.3.579.2.593 1947 Unknown [id number] 2.16.84 0.1.004245.3.579.2.593 1947 Unknown [id number] 2.16.84 0.1.051789.3.579.2.593 1947 Unknown [id number] 2.16.84 0.1.131216.3.579.2.593 1947 Unknown [id number] 2.16.84 0.1.610832.3.579.2.593 1947 Unknown [id number] 2.16.84 0.1.489769.3.579.2.593 1947 Unknown [id number] 2.16.84 0.1.524566.3.579.2.593 1947 Unknown [id number] 2.16.84 0.1.776982.3.579.2.593 1947 Unknown [id number] 2.16.84 0.1.728517.3.579.2.593 1947 Unknown [id number] 2.16.84 0.1.290896.3.579.2.593 1947 Unknown [id number] 2.16.84 0.1.960654.3.579.2.593 1947 Unknown [id number] 2.16.84 0.1.149428.3.579.2.593 1947 Unknown [id number] 2.16.84 0.1.642688.3.579.2.593 1947 Unknown [id number] 2.16.84 0.1.649202.3.579.2.593 1947 Unknown [id number] 2.16.84 0.1.875745.3.579.2.593 1947 Unknown [id number] 2.16.84 0.1.971172.3.579.2.593 1947 Unknown [id number] 2.16.84 0.1.360854.3.579.2.593 1947 Unknown [id number] 2.16.84 0.1.824504.3.579.2.593 1947 Unknown [id number] 2.16.84 0.1.168654.3.579.2.1259 1947 Unknown [id number] 2.16.84 0.1.871486.3.579.2.1259 1947 Unknown [id number] 2.16.8 40.1.293181.3.579.2.727 1947 Unknown [id number] 2.16.8 40.1.585275.3.579.2.727 1947 Unknown [id number] 2.16.8 40.1.846862.3.579.2.727 1947 Unknown [id number] 2.16.8 40.1.062942.3.579.2.727 1947 Unknown [id number] 2.16.8 40.1.184891.3.579.2.727 1947 Unknown [id number] 2.16.8 40.1.643111.3.579.2.727 1947 Unknown [id number] 2.16.8 40.1.941690.3.579.2.727 1947 Unknown [id number] 2.16.8 40.1.841062.3.579.2.727 1947 Unknown [id number] 2.16.8 40.1.918177.3.579.2.727 1947 Unknown [id number] 2.16.8 40.1.072709.3.579.2.727 1947 Unknown [id number] 2.16.8 40.1.121798.3.579.2.727 1947 Unknown [id number] 2.16.8 40.1.311458.3.579.2.727 1947 Unknown [id number] 2.16. 840.1.497670.3.579.2.196 1947 Unknown [id number] 2.16. 840.1.772800.3.579.2.196 1947 Unknown [id number] 2.16. 840.1.412442.3.579.2.196 1947 Unknown [id number] 2.16. 840.1.135066.3.579.2.196 1947 Unknown [id number] 2.16. 840.1.698930.3.579.2.196 1947 Unknown [id number] 2.16. 840.1.705917.3.579.2.196 1947 Unknown [id number] 2.16. 840.1.977811.3.579.2.196 1947 Unknown [id number] 2.16. 840.1.002494.3.579.2.196 Social History Date Type Detail [facility] Sex Assigned At Not on file [facility] Start: 02-03-2021 End: 12-25-2023 Tobacco smoking status Ex-smoker (finding) [facility] Sex Assigned At Female [facility] Tobacco smoking status Never [facility] Functional Status Date Assessment Result Facility 12-25-2023 Functional Status N[facility] Functional Status N/A [facility] 09-26-2023 Functional Status N/A [facility] 08-28-2023 Functional Status N/A [facility] 06-05-2023 Functional Status N/A [facility] 04-12-2023 Functional Status N/A [facility] 04-12-2023 Functional Status [facility] 06-21-2022 Functional Status N/A [facility] Clinical Notes 01-12-2013 to 12-25-2023 Note Date [...] to have the catheter removed. Medicines Take bffp-qqp-pjullhu and prescription medicines only as told by [...] provider. Document Revised: 12/16/2020 Document Reviewed: 12/03/2020 [employer] Patient Education 2022 [employer]. Follow Up Care 12/03/2023 14:36:32 With:MIAH ROE, BRENDA Poole, URL Address: [address] [place] [place] [address] [phone] When: Unknown [facility] Nini 12-25-2023 Note Patient Education Urology Injection Treatments [...] have the catheter removed. Medicines ? Take ruax-njd-iylvwpo and prescription medicines only as told by [...] provider. Document Revised: 12/16/2020 Document Reviewed: 12/03/2020 [employer] Patient Education ? 2022 [employer]. [place] 12-03-2023 Hospital Discharg e instructions Patient Education [...] Up Care 10/01/2023 15:36:12 With:BRENDA MARIN Address: [address] [place] [place] [address] [facility] (1) When: Unknown Comments:Call for followup appointment with Georgette Marin PA-C within the next three weeks or so. Push fluids to keep the urine clear. Expect the Botox to start working within the next 2-3 weeks. Have a great day! [facility] 12-03-2023 Note Patient Education Cystoscopy with Botox [...] you have a fever over 100 degrees. [place] 09-26-2023 Hospital Discharg e instructions Patient Education [...] including vitamins, herbs, eye drops, creams, and qgby-ypp-mduuqtu medicines. Any problems you or family members [...] provider tells you to take them. Taking jfsp-hkb-xeisyvf medicines, vitamins, herbs, and supplements. General instructions [...] Follow these instructions at home: Medicines Take acdq-cgn-ukmfonc and prescription medicines only as told by [...] provider. Document Revised: 11/04/2021 Document Reviewed: 11/04/2021 [employer] Patient Education 2022 [employer]. Follow Up Care 08/30/2023 10:04:37 With:MIAH ROE, BRENDA Poole, URL Address: [address] [place], [place] [address]zulema [facility] [place] [address] [phone] When: Unknown Comments:flaquita dietz MD [facility] 08-28-2023 Hospital Discharg e instructions Patient [...] your health care provider. General instructions Take sslk-ucy-lofvghf and prescription medicines only as told by [...] provider. Document Revised: 01/17/2021 Document Reviewed: 01/17/2021 [employer] Patient Education 2022 [employer]. Follow Up Care 07/23/2023 14:35:57 With:MIAH ROE, BRENDA Poole, CASSIE Address: [address] [facility] [place] [phone] Business (1) When:6 weeks [facility] Alexandre de [place] 07-23-2023 Hospital Discharg e instructions Patient Education [...] Up Care 06/11/2023 13:39:28 With:BRENDA MARIN Address: [address] [place] [phone] Business (1) When: Unknown Comments:Call for followup appointment with Georgette Marin PA-c within the next 2 months or so to monitor you. Please finish your antibiotics and have a great day. [facility] 07-23-2023 Note [id number]#[email or web address] [place] 07-23-2023 Note Cystoscopy with Uret hral Dilation [...] you have a fever over 100 degrees [place] 06-20-2023 Evaluation note Encounter Date Diagnosis Assessment Notes Jun, Essential (primary) hypertension (ICD-10 - I10) [facility] Other 01-23-2024 Hospital Discharge instructions Patient Education [...] reconstructed. Follow these instructions at home: Take xnoq-hdp-cofigyc and prescription medicines only as told by [...] provider. Document Revised: 03/07/2022 Document Reviewed: 03/07/2022 [employer] Patient Education 2022 [employer]. Follow Up Care 06/21/2022 15:14:52 With:CEZAR BERNAL, Cayden Hollins, URL Address: [facility] [place] [address] When: Unknown [facility] 01-23-2024 Evaluation + Plan note Diagnostic Tests Pending * Urine Culture 06/05/23 [facility]12-18-2023 Evaluation note* Encounter Date Diagnosis Assessment [...] symptoms. Any developing patterns. Stay well hydrated. [facility] Other 12-01-2023 NoteChief Complaint pt arrives via [facility] after being found outside by a neighbor without a shirt on. pt is a/o to self and place, not time. FSBS upon arrival 88. Pt was recently [facility] UTI [facility]. pt. denies fall, was found sitting down. History of Present Illness 78-year-old female with PMH reformed smoker, HTN, anxiety, depression, peripheral neuropathy, GERD, OAB, obesity. -Patient presented to the ED secondary to confusion. -Per ED physician patient was recently in [facility] and treated for a UTI on antibiotic, isunclear if she finished this. Patient is currently histrionic and tangential, her daughter is at bedside who assist with information, I also spoke with her son Dwigth Nunes via phone to assist with medical [...] Lymph Auto: 9.7 % Low (04/12/23 12:53:00) Ashley Auto: 7.8 % (04/12/23 12:53:00) Eos Auto: 0.1 % (04/12/23 12:53:00) Basophil Auto: 0.4 % (04/12/23 12:53:00) Neutro Absolute: 12.4 E9/L High (04/12/23 12:53:00) Lymph Absolute: 1.5 E9/L (04/12/23 12:53:00) Ashley Absolute: 1.2 E9/L High (04/12/23 12:53:00) Eos [...] 88 mg/dL (04/12/23 12:23:00) POC Device SN: [id number] (04/12/23 12:23:00) POC User ID: (more content not included)...[place] on above:Result Comment: Electronically Signed By: Radha TAYLOR\.br\Date and Time Signed: 04/12/23 16:29 EST\.br\Electronically Co-Signed By: TITI MITCHELL Radha\.br\Date and Time Co-Signed: 04/12/23 16:37 EST\.br\Electronically Co-Signed By: TITI MITCHELL, Radha\.br\Date and Time Co-Signed: 04/12/23 16:58 EST\.br\Electronically Co-Signed By: Tessie BERNAL, Efrain\.br\Date and Time Co-Signed: 04/13/23 16:43 [id number] NoteAdmission and Discharge Information Admitting Physician - [...] willbe reviewed and discussed with PCP or motion picture director MD once the hospital automatic grinding machine operator is able to reach him/her. [...] made to ensure accuracy, however, inadvertently computerized cut order hand mistakes may be present. Significant Findings CT [...] spine, with routine reconst (more content not included)...[place] on above:Result Comment: Electronically Signed By: Radha TAYLOR\.br\Date and Time Signed: 04/13/23 10:54 EST\.br\Electronically Co-Signed By: Radha TAYLOR\.br\Date and Time Co-Signed: 04/13/23 10:57 EST\.br\Electronically Co-Signed By: Radha TAYLOR\.br\Date and Time Co-Signed: 04/13/23 10:58 EST\.br\Electronically Co-Signed By: Radha TAYLOR\.br\Date and Time Co-Signed: 04/13/23 10:59 EST\.br\Electronically Co- Signed By: Radha TAYLOR\.br\Date and Time Co-Signed: 04/13/23 13:55 EST\.br\Electronically Co-Signed By: Tessie BERNAL, hari\.br\Date and Time Co- Signed: 04/13/23 16:37 [id number] Evaluation + Plan noteExtracted from: Title:Discharge Note [...] cap(s), Oral, Daily With When Contact Information [facility] Additional Instructions: Call for followup appointment for anxiety/depression care. Gerald Nolasco Within 1 to [address], [place] [address]- Business (1) Additional Instructions: JEREMIAH REED Within 2 to 4 days [facility] [place] [address]- Business (1) Additional Instructions: Confusion Extracted from: [...] deep vein thrombosis (DVT) prophylaxis (Z79.899: Other senior living (current) drug therapy) Depression, unspecified (F32.A: Depression, [...] deep vein thrombosis (DVT) prophylaxis (Z79.899: Other senior living (current) drug therapy) Depression, unspecified (F32.A: Depression, [...] Extracted from: Title:Admission H & P Author:TITI SANDOVALP-Divine CRUM enee Date:04/12/23 1. AMS (altered mental statu [...] Cr - unknown - awaiting records from [facility] -Renal US & PVR - if [...] deep vein thrombosis (DVT) prophylaxis (Z79.899: Other senior living (current) drug therapy) -Heparin sq with early [...] made to ensure accuracy, however, inadvertently computerized cut order hand mistakes may be present. Future Appointments Appointment Date:06/05/2023 01:00:00 PM Scheduled Provider:BRENDA MARIN PA-C Location:[facility] Appointment Type:URO Office Visit [facility]12-01-2023 Hospital Discharge instructions Patient Education 04/13/2023 10:40:43 [...] friend for help if needed. Medicines Take uzhm-max-njlegiy and prescription medicines only as told by [...] consider day care, extended-care programs, or a retirement facility. The person's health care provider may [...] provider. Document Revised: 08/24/2020 Document Reviewed: 08/24/2020 [employer] Patient Education 2022 [employer] Follow Up Care 04/12/2023 12:15:50 With:Ehsan Blair MD, NEU Address: [place] [address] [place] [phone]- When:1 to 2 weeks Comments:This office is closed on Fridays. Please call the office on Sunday April 16, 2023 for a follow upappiontment. Thank you. With:JEREMIAH DEREK Address: [address] [place], [place] [phone] Business (1) When:2 to 4 days Comments:Call for followup appointment With:[facility] Address:Unknown When: Unknown Comments:Call for followup appointment for anxiety/depression care. [facility]12-01-2023 NoteChief Complaint AMS Reason for Consultation [...] is alert and is oriented to [employer] and April and said 1921 but corrected [...] deep vein thrombosis (DVT) prophylaxis (Z79.899: Other senior living (current) drug therapy) Depression, unspecified (F32.A: Depression, [...] 2 tab(s), Oral, q6hr, PRN Afrin 0.05% [facility], 2 s (more content not included)...[place] Comment on above:Result Comment: Electronically Signed By: [...] hand. Will likely benefit from home health PT.[place]11-17-2023 Evaluation note* Encounter Date Diagnosis Assessment Notes Treatment Notes Treatment Clinical Notes Mar, Colon cancer screening (ICD-10 - Z12.11) [facility] Other 11-16-2023 Evaluation note* Encounter Date Diagnosis Assessment Notes Treatment Notes Treatment Clinical Notes Mar, Generalized weakness (ICD-10 - R53.1) Followup as scheduled w ortho and PT Mar, COPD, moderate (ICD-10 - J44.9) continue present medication reviewed ER report from observation status [facility] Other 03-30-2023 NoteCONSULTATION CONSULTATION DATE: 08/10/2022 TO: [...] weeks' time or sooner if needed. [id number] NoteCONSULTATION PROCEDURE DATE: 08/10/2022 PROCEDURE: Right suprascapular [...] reduction in her pain symptoms post procedurally.[facility] [id number] Hospital Discharge instructions Patient Education 06/21/2022 14:35:24 [...] fried and sweet foods. General instructions Take zent-acu-ecaiwhu and prescription medicines only as told by [...] 02/24/2010 Document Revised: 08/21/2019 Document Reviewed: 05/16/2018 [employer] Patient Education 2020 [employer] Follow Up Care 05/19/2021 14:10:29 With:MIAH ROE, BRENDA Poole, URL Address: [address] [place] [address] When: Unknown [facility] 12-29-2022 NoteCONSULTATION CONSULTATION DATE: 05/11/2022 HISTORY [...] the diclofenac. 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 [...] in three months' time unless otherwise indicated.[facility] [id number] NoteCONSULTATION CONSULTATION DATE: 02/23/2022 This is a [...] in three months' time unless otherwise indicated.[facility] [id number] NoteCONSULTATION CONSULTATION DATE: 01/08/2022 HISTORY OF PRESENT [...] followed up in the office post procedure.[facility] [id number] Note CONSULTATION CONSULTATION DATE: 12/07/2021 HISTORY OF [...] and patient would like to proceed. [facility] [id number] History general Narrative - Reported* Type Description Date Medical History Chronic back pain Medical History HTN Medical History anxiety Medical History DJD Medical History osteoporosis Surgical History Lumbar laminectomy and fusion Surgical History Hysterectomy (spared L ovary) Surgical History Landaverde's neuroma Hospitalization History For surgery as above Hospitalization History [facility] 03/2023 [facility] [employer] Other Evaluation + Plan note Future Appointments Appointment Date:06/26/2023 02:30:00 PM Scheduled Provider:BRENDA MARIN PA-C Location:[facility] Appointment Type:URO Office Visit [facility] evaluation + Plan note Future Appointments Appointment Date:08/28/2023 03:00:00 PM Scheduled Provider:BRENDA MARIN PA-C Location:[facility] Appointment [facility] Future Appointments Appointment Date:11/27/2023 11:00:00 AM Scheduled Provider: Location:[facility] Appointment Type:Urology CALL PAT FT Appointment Date:12/03/2023 02:00:00 PM Scheduled Provider: Location:[facility] Appointment Type:Urology FT [facility] evaluation + Plan note Future Appointments Appointment Date:12/25/2023 12:40:00 PM Scheduled Provider:BRENDA MARIN PA-C Location:[facility] Appointment Type:URO [facility] [employer] Other Hospital course Narrative No data available for this section [facility] Hospital Discharge instructions No data available for this section [facility] No data available for this section [facility] Summary Purpose Family History No Family [...] Personnel Name: JEREMIAH REED MD Address: Address: [address] [place] [address] Personnel Name: JEREMIAH REED MD Address: Address: [address] [place] [address] Personnel Name: JEREMIAH REED MD Address: Address: [address] [place] [address] Personnel Name: JEREMIAH REED MD Address: Address: [address] [place] [address] Personnel Name: JEREMIAH REED MD Address: Address: [address] [place] [address] Personnel Name: JEREMIAH REED MD Address: Address: [address] [place] [address] Personnel Name: JEREMIAH REED MD Address: Address: [address] [place] [address] Personnel Name: JEREMIAH REED MD Address: Address: [address] [place] [address] Personnel Name: JEREMIAH REED MD Address: Address: [address] [place] [address] Personnel Name: JEREMIAH REED MD Address: Address: [address] [place] [address] Personnel Name: JEREMIAH REED MD Address: Address: [address] [place] [address] INFORMATION SOURCE (unrecogn ized section and content) DATE CREATED AUTHOR 09/08/2022 [facility] DATE CREATED AUTHOR AUTHOR'S ORGANIZ ATION 11/10/2023 [facility] DATE CREATED AUTHOR AUTHOR'S ORGANIZ ATION 12/29/2023 [facility] DATE CREATED AUTHOR AUTHOR'S ORGANIZ ATION 12/31/2023 [facility] FOR RECORDS PERTAINING TO PATIENTS [...] BE BASED ON THE PRIMARY CLINICAL RECORDS. [facility]. provides no warranty or guarantee of the accuracy or completeness of information in this document.
--- NOTE | 2024-01-24 14:58 | P.CN_ITS ---
Consult Note: HPI Data of Consult Patient: known to practice within the last 3 years Requesting Physician: Sheri Lozano NP Primary Care Provider: Tierra Newell MD Consult Narrative Reason for consult: f/u Narrative: Jing Hoffmann a pleasant 78 year old female presents for evaluation and management of chronic neck and low back pain. Patient reporting moderate to severe low back pain without radiculopathy, greater than 3 months unresponsive to HEP and conservative medications. Patient has a hx of successful lumbar RFAs. Pain today 5-6/10 aching sharp increasing to 8/10 with activity, standing, walking, pushing, pulling, ADLS. Pain improved with heat, lying, and sitting. Patient recently underwent bilateral L4-5 L5-S1 RFA with no improvement. Continues to have moderate to severe low back pain. Recent lumbar MRI completed with results below. Continues to have moderate to severe neck pain and pain radiating into right arm, unfortunately no relief from right C5-6 C6-7 TFESI. Patient has not seen Dr Malhotra recently. recent right L4-5 L5-S1 TFESI provided significant relief for 1 week, unfortunately pain has returned to base line. cc:: CC: Sheri Lozano NP Review of Systems ROS Status of ROS 10 or more systems reviewed and unremark able except as noted in history and below Musculoskeletal Reports: back pain and extremity pain PFSH PFSH Medical History COPD (chronic obstructive pulmonary disease) ?J44.9 - Chronic obstructive pulmonary disease, unspecified (ICD-10) GERD (gastroesophageal reflux disease) ?K21.9 - Gastro-esophageal reflux disease without esophagitis (ICD-10) Chronic pain ?G89.29 - Other chronic pain (ICD-10) Anxiety ?F41.9 - Anxiety disorder, unspecified (ICD-10) HTN (hypertension) ?I10 - Essential (primary) hypertension (ICD-10) Chronic prescription opiate use ?Z79.891 - nursing home (current) use of opiate analgesic (ICD-10) Shoulder arthritis ?M19.019 - Primary osteoarthritis, unspecified shoulder (ICD-10) Cervical spondylosis ?M47.812 - Spondylosis without myelopathy or radiculopathy, cervical region (ICD-10) Surgical History History of lumpectomy of left breast ?Z98.890 - Other specified postprocedural states (ICD-10) History of back surgery ?Z98.890 - Other specified postprocedural states (ICD-10) History of hysterectomy ?Z90.710 - Acquired absence of both cervix and uterus (ICD-10) Family History Mother Family history of cancer Father Family history of stroke Grandfather Family history of stroke Social History Within the past year, how often did you have a drink containing alcohol: never Score interpretation: A score less than 3 is consistent with normal alcohol consumption. Smoking status: Former smoker Non-prescribed substance use: denies use Previous occupational history: retired Highest level of school completed/degree received: high school graduate Are you now , , , , never or living with a partner: Little interest or pleasure in doing things: not at all Feeling down, depressed, or hopeless: not at all Feel stressed/tense/nervous/anxious/difficulty sleeping: not at all Do you think of yourself as: straight/heterosexual Gender Identity: female Meds Home Medications and Allergies Home Medications ?Medication ?Instructions ?Recorded ?Confirmed ?Type multivitamin 1 tab PO DAILY 10/26/22 01/07/24 History omeprazole 40 mg capsule,delayed 40 mg PO DAILY 10/26/22 01/07/24 History release calcium carbonate (Calcium 600) 600 mg PO DAILY 03/21/23 01/07/24 History meloxicam 15 mg tablet 15 mg PO DAILY 03/21/23 01/07/24 History gabapentin 300 mg capsule 300 mg PO TID #270 caps 06/07/23 01/07/24 Rx baclofen 10 mg tablet 5 mg PO TID PRN muscle spasm 07/19/23 01/07/24 History acetaminophen 325 mg tablet 650 mg PO Q6H PRN pain 08/30/23 01/07/24 History amlodipine 2.5 mg tablet 2.5 mg PO DAILY 08/30/23 01/07/24 History aspirin 81 mg tablet,delayed 81 mg PO DAILY 08/30/23 01/07/24 History release glucosamine sulfate 500 mg tablet 500 mg PO BID 08/30/23 01/07/24 History (Glucosamine) oxycodone-acetaminophen 5 mg-325 1 tab PO TID PRN pain 08/30/23 01/07/24 History mg tablet (Percocet) nortriptyline 25 mg capsule 25 mg PO DAILY #90 caps 10/17/23 01/07/24 Rx albuterol sulfate 90 mcg/actuation 2 puff inhalation Q4H PRN 12/28/23 01/07/24 History aerosol inhaler shortness of breath or wheezing buspirone 10 mg tablet 10 mg PO BID 12/28/23 01/07/24 History Allergies Allergy/AdvReac Type Severity Reaction Status Date / Time No Known Drug Allergies Allergy Verified 01/07/24 09:53 Exam Constitutional Documenting provider has reviewed patient's vital signs: yes Common normals: no apparent distress, oriented x3, healthy appearing, alert and well nourished General appearance: cooperative HENPR Common normals: normocephalic, hearing grossly normal bilaterally and moist oral mucous membranes Head and scalp: normocephalic Eye Common normals: PERRL Pupil: PERRL Neck & C-Spine Common normals: full ROM General: normal visual inspection Cervical spine: pain with cervical ROM and cervical spine tenderness Other: reports intermittent numbness tingling and weakness of RUE strength 5/5 on exam negative spurlings sensation intact and equal to BUE Chest Common normals: inspection of chest normal Respiratory Common normals: normal respiratory effort, no retractions and no use of accessory muscles Back & Pelvis Lumbar spine/lower back: ROM limited, pain with ROM and straight leg raise positive right Sacroiliac joints: SI joints normal Other: decreased sensation to right L4,5,S1 pattern strength 5/5 in BLE positive facet loading Extremity Common normals: normal to inspection Right upper extremity: shoulder joint (pain and limited ROM, tender to touch) Other: limited ROM with abduction and overhead extension, unable to perform scratch test due to pain Neuro Common normals: oriented x3, CN's II-XII intact bilaterally, moves all extremit ies, no focal motor deficits, no sensory deficits noted and deep tendon reflexes 2+ bilaterally Sensorium/orientation: alert Motor exam: strength 5/5 throughout and no movement abnormalities noted Psych Common normals: mental status grossly normal, thought process normal, cooperative, affect normal, speech normal and activity/motor behavior normal Speech: normal speech Thought process: normal thought process Results Additional Findings Additional findings: If on a controlled substance or opioids, I have checked an [place] report on this patient and there are no aberrancies noted in the prescribing history.??If on a controlled substance or opioid a drug screen was completed and reviewed within the last year, and if there has not been a drug screen completed we ordered one today to monitor higher risk, state monitored pain medication use. As part of providing excellent, safe, comprehensive care, the following was completed at our patient's visit: 1. A medication reconciliation and review to ensure accurate knowledge of current/active medications, including asking our patients to inform us about any [id number] medications or herbal remedies/nutritional supplements/alternative remedies. 2. A review to specifically ensure our patients have had annual screening for screening for depression, screening for tobacco use, and screening for unhealthy alcohol use. For concerning screenings had a discussion with the patient, provided patient education, and recommended follow-up with primary care provider when appropriate. If patient noted with a risk of falling, they received education on strength, gait, and balance training to prevent future risk of falling. Assessment and Plan Assessment and Plan (1) Lumbar stenosis with neurogenic claudication: (2) Lumbar spondylosis: (3) Cervical radiculopathy: (4) Primary osteoarthritis, right shoulder: (5) Tendinopathy of right shoulder: (6) Cervical spinal stenosis: (7) Failed back syndrome: Plan right L4-5 L5-S1 TFESI with steroid rotation spinal cord stimulator trial discussed with pt, handout provided, pt would like to think more about continue current medications, tolerating well without side effects. reporting functional improvement f/u 2 weeks after [facility]
== END 2024-01-24 14:11 | disposition home or self-care (01) ==
LOC: PM 14:12
PROVIDERS: PCP Family Medicine; Visit Provider Nurse Practitioner
DX: M48.062 Spinal stenosis, lumbar region with neurogenic claudication (principal); M47.816 Spondylosis without myelopathy or radiculopathy, lumbar region; M48.02 Spinal stenosis, cervical region; M19.011 Primary osteoarthritis, right shoulder; M77.8 Other enthesopathies, not elsewhere classified; M96.1 Postlaminectomy syndrome, not elsewhere classified
CPT/HCPCS: G0463

== ENCOUNTER 2024-02-04 09:34 | Day surgery (SDC) | payer MEDICARE, OTHER, SELFPAY ==
--- OUTSIDE RECORDS SUMMARY | 2024-02-04 09:46 | XMS_ITS | CCD ---
Author Organization [facility] Care Team Providers Care Slurry Control Tender Name Role Phone Unavailable Primary Care Provider JEREMIAH Arnold Primary Care Physician [phone] BRENT MALDONADO Consulting Unavailable LAKSHMIPATHY ., BARBARA Admitting Chelly vailable LAKSHMIPATHY ., BARBARA Attending Chelly vailable DEREK, DR JEREMIAH Poole Primary Care Unavailable LAKSHMIPATHY ., BARBARA Consulting Chelly vailable ALBERPATHY ., BARBARA Attending Chelly shreyailable TRICIA ., BARBARA Admitting Chelly vailable DEREK, [...] REINRYAN, DR SHIREEN Jamil Consulting Unavailabl e SHANNON, [...] DR EHSAN Haskins Consulting Unavailable DEREK, DR JEREMIHA Poole Primary Care Unavailable SAMSA ., LEANDRA [...] ., NARENDRANATH Attending Chelly vailable LAKSHMIPATHY ., OZZYENDRANATH Admitting Chelly vailable DEREK, DR JEREMIAH Poole [...] Unavailable REED, DR JEREMIAH Poole Attending Unavailable Reed, Jeremiah Unavailable Ray Fofana Unavailable Nandini BERNAL, Andjameel Glaser Attending Unavailable Giedraitis , Andrius Jailyn Attending Unavailable Giedraitis , Andrius Ilsaytedwardo Attending Unavailable Giedraitis , Andrius Jailyn Attending Unavailable Giedraitis , Andrius Jailyn Attending Unavailable Giedraitis , Andrius Vytautwilliam Attending Unavailable Giedraitis , Andrius Vytautwilliam Attending Unavailable Giedraitis , Andrius Vytedwardo Attending Unavailable DIDIER MALDONADO Attending Unavailable DIDIER MALDONADO Attending Unavailable DIDIER MALDONADO Attending Unavailable BRENDA MARIN Attending Unavailable Cayden ROBB Admitting Unavailable Cayden ROBB Attending Unavailable Cayden ROBB P Referring Unavailable COOK, Cayden P Admitting Unavailable COOKCayden Attending Unavailable Cayden ROBB Referring Unavailable MIAHBRENDA DAMICO Admitting Unavailable MIAHBRENDA DAMICO Attending Unavailable BRENDA MARIN Attending Unavailable BRENDA MARIN Admitting Unavailable Efrain Kurtz Attending Unavailable Ehsan Blair Consulting Unavailable Efrain Kurtz Admitting Unavailable MD Ehsan Blair Consulting Unavailable [place], Ehsan Consulting Unavailable [place], Ehsan Consulting Unavailable [place], Ehsan Consulting Unavailable [place], Ehsan Consulting Unavailable [place], Ehsan Consulting Unavailable [place], Ehsan Consulting Unavailable Ehsan Blair Consulting Unavailable BRENDA MARIN Attending Unavailable BRENDA MARIN Attending Unavailable BRENDA MARIN Referring Unavailable BRENDA MARIN Attending Unavailable Alexandro CARMONA Attending Unavailable BRENDA MARIN Attending Unavailable BRENDA MARIN Attending Unavailable BRENDA MARIN Attending Unavailable Allergies Allergy Classification Reported Allergen(s) Allergy Type Date of Onset Reaction(s) Facility (7 sources) patient allergy list reviewed by nurse or physicia Propensity to adverse reactions 9 Comment:Done Bib + Tuck Other (7 sources) Allergies Reconciled Propensity to adverse reactions Unknown Bib + Tuck Other Medications Current Medications Medication Drug Class(es) [...] Active oral daily for 30 *Reorder from [employer] for eRx and Interaction Alerts* Apr, Active Start: 02-11-2019 take 2 tablets by mo [facility] once daily amLODIPine 2.5 mg Tab 5 mg = 2 tab(s), Oral, Daily, # 90 tab(s), Refills(s) 0 Start Date: 02/11/19 Status: Ordered take 1 tablet by buffy th every twenty-four hours amLODIPine Besylate 5 MG [...] Entry Oral for 0 *Pick strength-form from WeShow for eRX* Mar, Active Start: 03-31-2021 take [...] procedure, # 10 tab(s), Refills(s) 0, Pharmacy: [id number], 165, cm, 09/26/23 15:44:00 EDT, Height/Length Dosing, 91, kg, 09/26/23 15:44:00 EDT, Weight Dosing Start Date: 10/09/23 Status: Ordered Start: 06-11-2023 Cipro 500 mg T ab See Instructions, Take 1 tab day prior to procedure and 1 tab day of procdure - afterwards, # 2 tab(s), Refills(s) 0, [id number] 165, cm, 06/05/23 12:57:00 EST, Height/Length [...] for 0 duration 5 years *Reorder from WeShow for eRx and Interaction Alerts* Nov, Active [...] day(s), # 30 tab(s), Refills(s) 11, Pharmacy: [facility] #[id number], 165, cm, 08/28/23 15:03:00 EDT, Height/Length [...] day(s), # 30 tab(s), Refills(s) 11, Pharmacy: [id number], 165, cm, 06/21/22 14:53:00 EST, Height/Length Dosing, 87, kg, 06/21/22 14:53:00 EST, Weight Dosing Start Date: 06/21/22 Stop Date: 06/16/23 Status: Ordered Tudorza Pressair 400mcg/actuat (7 sources) Start: 04-12-2022 take 1 puff(s) by inhalation twice daily Tudorza Pressair 400mcg/actuat Tudorza Pressair 400mcg/actuat, 1 (one) Puff BID # 1, 04/12/2022, Ref. x12. Active inhalation BID *Pick strength-form from Malesbangetspan for eRX* Mar, Active Start: 04-12-2022 take 1 puff(s) by in halation twice daily Tudorza Pressair 400mcg/actuat Tudorza Pressair 400mcg/actuat, 1 (one) Puff BID # 1, 04/12/2022, Ref. x12. Active inhalation BID for 30 *Pick strength-form from Malesbangetspan for eRX* 30 Mar, 2022 Active vibegron 75 MG Oral Tablet [Gemtesa] (1 source) Start: 08-28-2023 End: 08-22-2024 take 1 tablet by mouth once daily Gemtesa 75 mg oral tablet 75 mg = 1 tab(s), Oral, Daily, X 30 day(s), # 30 tab(s), Refills(s) 11, Pharmacy: [facility][id number], 165, cm, 08/28/23 15:03:00 EDT, Height/Length Dosing, 90, kg, 08/28/23 15:03:00 EDT, Weight Dosing Start Date: 08/28/23 Stop Date: 08/22/24 Status: Ordered Vision Formula (7 sources) Vision Formula A ctive Problems Active Problems Problem Classification Problem Date Documented Date Episodic/Chronic Abdominal hernia (1 source) Diaphragmatic hernia without obstruction or gangrene; Translations: [DIAPH HERNIA W/O OBST/GANGRENE] Onset: Episodic Abdominal pain (11 sources) Abdominal tenderness [...] current use of drug therapy; Translations: [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) drug therapy] Onset: 3 Episodic [...] 02-25-2022 Episodic Other aftercare (1 source) 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 It is important that you return our call upon receiving this letter. Also, at the time of your call, please provide us with your current information. Thank you for your prompt attention to this matter. Sincerely, [facility] [place] [address] [facility] Ambulatory Visit Summaryon 0 12-25-2023 Ambulatory Visit Summary Ambulatory Visit Summary AARON HOFFMANN :1945 Visit Date:12/25/2023 Ambulatory Visit Instructions Your [...] with BRENDA MARIN PA-C, URL When: Where: [address] [address] [phone] Medications What How Much When Instructions Unchanged [...] tubing an (more content not included)... [facility] Urology Office/Clinic Noteon 12-25-2023 Urology Office/Clinic [...] Contact Information MIAH ROE, BRENDA Poole, URL [address] [place] [address] [phone] Additional Instructions: nurse visit in 1 wk w/ PVR, will call pt to schedule f/u Patient Education Injection Treatments for Urinary Incontinence, Care After Documentation recorded by the scribzulema Colon accurately reflects the services(s) I performed [...] than 30 (more content not included)... [facility] Comment on above: Result Comment: Elec tronically Signed By: BRENDA MARIN PA-C\.br\Date and Time Signed: 12/25/23 13:09 EDT\.br\Electronically Co-Signed By: Abby Colon.br\Date and Time Co-Signed: 12/25/23 13:07 EDT Inpatient Patient Summaryon 12-03-2023 Inpatient Patient Summary Inpatient Patient Summary [address] [address] Clinical Summary Person Information Name: AARON HOFFMANN Age: 78 Years : 1945 Sex: Female PCP: JEREMIAH REED MD Marital Status: Phone: [phone] Race: White Ethnicity: Non- or Language: Czech Visit Id: Visit Reason: URINARY INCONTINENCE Speciality: Acuity: Enc Type: Outpatient Med Service: Surgery Arrival: 12/03/2023 13:41:56 Discharge: Dispo Type: Address: [address] [place] [address] [address] [place] [id number] Provider Notes: Diagnosis: Problems Active Recurrent UTI [...] Follow up: With: Address: When: BRENDA MARIN [address] [facility] [place] [phone] [facility] (1) Comments: Call for followup appointment with Georgette Marin PA-C within the next three weeks or so. Push fluids to keep the urine clear. Expect the Botox to start working within the next 2-3 weeks. Have a great day! Patient Education Information: EU - Cystoscopy with Botox Injection Discharge Instructions (Custom) [facility] Main OR Intraoperative Recor don 12-03-2023 Main OR Intraoperative Record Main OR Intraoperative Record IntraOp Document Type FTURO Summary Primary Physician: Cayden ROBB MD Finalized Date/Time: 12/03/23 14:30:52 Pt. Name: АННАAARON/Sex: 1945 Female Med Rec #: [id number] Physician: Cayden ROBB MD Financial #: [id number] Pt. Type: O Room/Bed: / Admit/Disch: 12/03/23 13:41:56 - Institution: Case Times FTURO Entry 1 Patient Times In Room 12/03/23 14:15:00 Out Room 12/03/23 14:30:00 Procedure Times Start 12/03/23 14:21:00 Stop 12/03/23 14:23:00 Anesthesia Times Last Modified By: Neva Palacio 12/03/23 14:30:41 General Comments: BOTOX 100 UNITS EXP: LOT: [id number].GIORGIO MELENDEZ. Case Attendance FTURO Entry 1 Entry 2 Entry 3 Case Attendee Cayden ROBB MD, Kelsie E McClain FELLER OPERATORKenisha Role Performed Surgeon - Primary Pst Manager - Primary Scrub - Primary Time In [...] Palacio 12/03/23 14:30 Neva Palacio 12/03/23 14:30 [facility] Main OR Preoperative Recordo n 12-03-2023 Main OR Preoperative Record Main OR Preoperative Record Holding Area Document Type FTURO Summary Primary Physician: Cayden ROBB MD Finalized Date/Time: 12/03/23 14:21:15 Pt. Name: AARON HOFFMANN/Sex: 1945 Female Med Rec #: [id number] Physician: Cayden ROBB MD Financial #: [id number] Pt. Type: O Room/Bed: / Admit/Disch: 12/03/23 [...] Complaints of Pain: No Skin Integrity Intact, [place], Warm, & Dry Vitals - EU Blood Pressure 125/72 Pulse 100 bpm Respirations 20 br/min SPO2 95 % Additional Other (See Comment) Specimens Comment ua dip Specimens Collected RN Reviewed Yes Last Modified By: Neva Palacio 12/03/23 14:20:47 Finalized By: Neva Palacio Document Signatures Signed By: Neva Palacio 12/03/23 14:20 Neva Palacio 12/03/23 14:20 Gypsy Cardenas LPN 12/03/23 14:03 Neva Palacio 12/03/23 14:21 [facility] Operative Reporton Operative Report Operative Report Patient: AARON HOFFMANN Age: 78 years Sex: Female : 1945 Associated Diagnoses: None Author: Cayden ROBB MD Procedure Operative Information Details: Date/ Time: 12/03/2023 14:28:00. Pre-Op Dx: Overactive bladder (BSW95-RW N32.81, Working, Medical). Post-Op Dx: Same. Anesthesia [...] about 3 weeks. Finish abx. . [facility] Comment on above: Result Comment: Elec tronically Signed By: Cayden ROBB MD\.br\Date and Time Signed: 12/03/23 14:29 EDT Outpatient Surgery Discharge Instructionon 12-03-2023 Outpatient Surgery Discharge Instruction Outpatient Surgery Discharge Instruction [address] [address] Patient Discharge Instructions PERSON INFORMATION Name: AARON HOFFMANN Date of : 1945 Current Date: 12/03/2023 14:28:09 PHYSICIANS Admitting Physician: Cayden ROBB MD Comment: Discharge Diagnosis: AARON HOFFMANN has been given the following list of follow-up instructions, prescriptions, and patient education materials: IF UNABLE TO CONTACT YOUR PHYSICIAN AND YOU FEEL IT IS AN EMERGENCY, GO TO THE NEAREST EMERGENCY ROOM OR CALL 911 Follow up: With: Address: When: BRENDA MARIN [address] [place] [phone] [facility] (1) Comments: Call for followup [...] have received the attached patient education materials/instructio marlene and have verbalized understanding: May we do a follow up call? Yes No I was present when discharge instructions were given Patient Signature Date Clinican/Nurse Signature Date You may receive a survey from [employer] asking you to rate your care experience. Your feedback is important and will help us understand what we do well and how we can improve the quality of care we provide to you, your loved ones and our community. It?s an honor to serve you. Thank you for choosing [facility] Ambulatory Visit Summaryon 0 09-26-2023 Ambulatory Visit Summary AARON HOFFMANN :1945 Visit Date:09/26/2023 Ambulatory Visit Instructions Your [...] mg Cap) omeprazole (omeprazole 40 mg Cap-) Procedures Performed Cystourethroscopy with dilation of urethral [...] with BRENDA MARIN PA-C, URL When: Comments: sched Botox w/ Where: [address] [place] [address] [phone] Medications What How Much When Instructions Unchanged [...] including vitamins, herbs, eye drops, creams, and luro-lxx-pgfmaic medicines. ? Any problems you or family [...] are or (more content not included)... [facility] Patient Educationon 09-26-19 Patient Education Urology [...] including vitamins, herbs, eye drops, creams, and glkf-jfp-oxuinil medicines. ? Any problems you or family [...] tells you to take them. ? Taking ycve-czt-fbqdqha medicines, vitamins, herbs, and supplements. General instructions [...] these instructions at home: Medicines ? Take lxkn-sfw-nacrrpq and prescription medicines only as told by [...] health ca (more content not included)... [facility] Urology Office/Clinic Noteon 09-26-2023 Urology Office/Clinic [...] Contact Information MIAH ROE, BRENDA Poole, URL [address] [place] [address] [phone] Additional Instructions: flaquita Girard w/ Patient Education Botulinum Toxin Bladder Injection [...] tobacco c (more content not included)... [facility] Comment on above: Result Comment: Elec tronically Signed By: BRENDA MARIN PA-C\.br\Date and Time Signed: 09/26/23 17:33 EDT\.br\Electronically Co-Signed By: Abby Colon\.br\Date and Time Co-Signed: 09/26/23 16:07 EDT Ambulatory Visit Summaryon 0 08-28-2023 Ambulatory Visit Summary AARON HOFFMANN :1945 Visit Date:08/28/2023 Ambulatory Visit Instructions Your [...] Duration: 30 Days Refills: 11 Pickup at [facility] #[id number] New vibegron (Gemtesa 75 mg oral tablet) 1 Tablets By Mouth Every day Urethral stricture OAB (overactive bladder) Recurrent UTI Duration: 30 Days Refills: 11 Pickup at [facility]/pharm[facility] #[id number] Unchanged acetaminophen-oxycod one (acetaminophen-oxyco done 325 [...] Capsules By Mouth Every day Pharmacy Information [facility]/pharmacy #[id number]: [address] [place], [place] [phone] Allergies No Known Allergies Problems Ongoing - [...] you for choosing us for your care. [facility] Patient Educationon 08-28-19 Patient Education Obstetrics [...] health care provider. General instructions ? Take rbmm-zys-dpvhorg and prescription medicines only as told by [...] monitor yo (more content not included)... [facility] Urology Office/Clinic Noteon 08-28-2023 Urology Office/Clinic [...] day(s), # 30 tab(s), Refills(s) 11, Pharmacy: [facility]/pharmacy #[id number], 165, cm, 08/28/23 15:03:00 EDT, Height/Length Dosing, 90, kg, 08/28/23 15:03:00 EDT, Weight Dosing vibegron, 75 mg = 1 tab(s), Oral, Daily, X 30 day(s), # 30 tab(s), Refills(s) 11, [id number], 165, cm, 08/28/23 15:03:00 EDT, Height/Length Dosing, 90, kg, 08/28/23 15:03:00 EDT, Weight Dosing 11866 Measure Post Void residual urine and/or bladder capacity by US- non-imaging Body Mass Index (BMI) documented 3008F Complex E&M Add on G2211 Current tobacco non-user 1036F Depression Screening Negative 3352F E&M of Est. Patient Moderate 30-39 Min 71797 Influenza immunization status assessed 1030F Medication list [...] Urnls Dip Stick Auto w/o Microscopy POC 88838 2. Urethral stricture (N35.919: Unspecified urethral stricture, [...] day(s), # 30 tab(s), Refills(s) 11, [id number], 165, cm, 08/28/23 15:03:00 EDT, Height/Length Dosing, 90, kg, 08/28/23 15:03:00 EDT, Weight Dosing vibegron, 75 mg = 1 tab(s), Oral, Daily, X 30 day(s), # 30 tab(s), Refills(s) 11, Pharmacy: [facility] #[id number], 165, cm, 08/28/23 15:03:00 EDT, Height/Length Dosing, 90, kg, 08/28/23 15:03:00 EDT, Weight Dosing 86013 Measure Post Void residual urine and/or bladder capacity by US- non-imaging Body Mass Index (BMI) documented 3008F Complex E&M Add on G2211 Current tobacco non-user 1036F Depression Screening Negative 3352F E&M of Est. Patient Moderate 30-39 Min 99318 Influenza immunization status assessed 1030F Medication list [...] Coli, 50k Proteus (more content not included)... [facility] Comment on above: Result Comment: Elec tronically Signed By: BRENDA MARIN PA-C\.br\Date and Time Signed: 08/28/23 15:38 EDT Physician Orderon 08-02-2023 Physician Order [id number] #1.00TIFF [facility] Consent for Procedure/Surger yon 07-23-2023 Consent for Procedure/Surgery [id number] 4#1.00TIFF [facility] Consent for Treatmenton 07-12 Consent for Treatment [id number] 1#1.00TIFF [facility] Inpatient Patient Summaryon 07-23-2023 Inpatient Patient Summary [address], [place] [address] Clinical Summary Person Information Name: AARON HOFFMANN Age: 78 Years : 1945 Sex: Female PCP: JEREMIAH REED MD Marital Status: Phone: [phone] Race: White Ethnicity: Non- or Language: Czech Visit Id: Visit Reason: URETHER STRICTURE AND RECURRENT UTI Speciality: Acuity: Enc Type: Outpatient Med Service: Surgery Arrival: 07/23/2023 13:44:06 Discharge: Dispo Type: Address: [address] [place] [address] [address] [place] [phone] Provider Notes: Diagnosis: Problems Active Recurrent UTI [...] Cayden ROBB MD Consulting Physician: Referring Physician: Cyaden ROBB MD Follow up: With: Address: When: BRENDA MARIN [address] [facility] [place] [phone] Business (1) Comments: Call for followup appointment with Georgette Marin PA-c within the next 2 months or so to monitor you. Please finish your antibiotics and have a great day. Patient Education Information: EU - Cystoscopy with Urethral Dilation Discharge Instructions (Custom) [facility] IntraOperative Documentson 0 07-23-2023 IntraOperative Documents [id number] 5#1.00TIFF [facility] Main OR Intraoperative Recor don 07-23-2023 Main OR Intraoperative Record IntraOp Document Type FTURO Summary Primary Physician: Cayden ROBB MD Finalized Date/Time: 07/23/23 14:33:02 Pt. Name: AARON HOFFMANN/Sex: 1945 Female Med Rec #: [id number] Physician: Cayden ROBB MD Financial #: [id number] Pt. Type: O Room/Bed: / Admit/Disch: 07/23/23 13:44:06 - Institution: Case Times FTURO Entry 1 Patient Times In Room 07/23/23 14:19:00 Out Room 07/23/23 14:31:00 Procedure Times Start 07/23/23 14:22:00 Stop 07/23/23 14:26:00 Anesthesia Times Last Modified By: Crissy Borja RN 07/23/23 14:26:23 Case Attendance FTURO Entry 1 Entry 2 Entry 3 Case Attendee Caydne ROBB MD, RN, Son Tellez Role Performed Surgeon - Primary Pst Manager - Primary Scrub - Primary Time In 07/23/23 14:19:00 07/23/23 14:19:00 07/23/23 14:19:00 Time Out 07/23/23 14:31:00 07/23/23 14:31:00 07/23/23 14:31:00 Procedure CYSTOSCOPY LOCAL WITH CYSTOSCOPY LOCAL WITH CYSTOSCOPY LOCAL WITH URETHRAL DILATION(.) URETHRAL DILATION(.) URETHRAL DILATION(.) Comments Last Modified By: Jonh RN, Crissy Borja RN, Crissy Borja RN, Crissy [...] By: Crissy Borja RN 07/23/23 14:33 [facility] Main OR Preoperative Recordo n 07-23-2023 Main OR Preoperative Record Holding Area Document Type FTURO Summary Primary Physician: Cayden ROBB MD Finalized Date/Time: 07/23/23 14:14:06 Pt. Name: АННА AARONRANJITH Odom/Sex: 1945 Female Med Rec #: [id number] Physician: Cayden ROBB MD Financial #: [id number] Pt. Type: O Room/Bed: / Admit/Disch: 07/23/23 [...] JOSE Markham RN, Ruthann 07/23/23 14:14 [facility] Operative Reporton Operative Report Patient: AARON HOFFMANN Age: 78 years Sex: Female : 1945 Associated Diagnoses: None Author: Cayden ROBB MD Procedure Operative Information Details: Date/ Time: 07/23/2023 14:29:00. Pre-Op Dx: Recurrent UTI (TEQ06-TS N39.0, Working, Medical), Unspecified urethral stricture, female (MTJ79-SP N35.92, Working, Medical), Overactive bladder (YGO03-YR N32.81, Working, Medical). Post-Op Dx: Same. Anesthesia [...] urine. The Urethra was dilated to: 30 Welsh w/ sounds. Devices Implanted: None. Removal: Cystoscope is removed, The patient tolerated it well. Postoperative Information Discharge: Patient is discharged home with antibiotic coverage, Follow up arranged, F/U with Georgette Marin PA-C within the next 2-3 months. Monitor the urinary flow pattern. The goal is also to decrease UTI frequency. . [facility] Comment on above: Result Comment: Elec tronically Signed By: Cayden ROBB MD\.br\Date and Time Signed: 07/23/23 14:30 EDT Outpatient Surgery Discharge Instructionon 07-23-2023 Outpatient Surgery Discharge Instruction [address] [address] Patient Discharge Instructions PERSON INFORMATION Name: AARON HOFFMANN Date of : 1945 Current Date: 07/23/2023 14:28:53 PHYSICIANS Admitting Physician: Cayden ROBB MD Comment: Discharge Diagnosis: AARON HOFFMANN has been given the following list of follow-up instructions, prescriptions, and patient education materials: IF UNABLE TO CONTACT YOUR PHYSICIAN AND YOU FEEL IT IS AN EMERGENCY, GO TO THE NEAREST EMERGENCY ROOM OR CALL 911 Follow up: With: Address: When: BRENDA MARIN [address] [place] [phone] [facility] (1) Comments: Call for followup [...] you have a fever over 100 degrees IАННА CYNTHIA J, have received the attached patient education materials/instructio ns and have verbalized understanding: May we do a follow up call? Yes No I was present when discharge instructions were given Patient Signature Date Clinican/Nurse Signature Date You may receive a survey from [employer] asking you to rate your care experience. Your feedback is important and will help us understand what we do well and how we can improve the quality of care we provide to you, your loved ones and our community. It?s an honor to serve you. Thank you for choosing [facility] C Urineon 07-11-2023 Bacteria identified Cx [...] Locations R1: This test was performed at: [facility], [address] [place] [address], [address] , , [facility] Comment on above: Performed By: #### 2 [id number] ####[facility] [address] [place] [address] Ambulatory Visit Summaryon 0 07-09-2023 Ambulatory Visit Summary AARON HOFFMANN :1945 Visit Date:07/09/2023 Ambulatory Visit Instructions Your [...] Follow-Up Appointments Sunday 9:00 AM EST Where: [facility] Sunday 2:30 PM EDT Where: [facility] Medications What How Much [...] for choosing us for your care. [facility] C Urineon 06-07-2023 Bacteria identified Cx [...] Locations R1: This test was performed at: [facility], [address] [place] [address], [id number] , , [facility] Comment on above: Performed By: #### 2 [id number] #### [facility] [address] [place] [id number] Lab Reportson 06-06-2023 Lab Reports [id number] 7#1.00TIFF Normal [facility] Screenson 06-06-2023 Screens [id number]# 1.00TIFF Normal [facility] Ambulatory Visit Summaryon 0 06-05-2023 Ambulatory Visit Summary AARON HOFFMANN :1945 Visit Date:06/05/2023 Ambulatory Visit Instructions Your [...] CEZAR BERNAL, Cayden Hollins, URL When: Where: [address] [place] [address]- Medications What How Much When Instructions [...] The main (more content not included)... Normal [facility] Patient Educationon 06-05-19 Patient Education Urology Urethral [...] Follow these instructions at home: ? Take eziu-ngj-fathftz and prescription medicines only as told by [...] provider. Document Revised: 03/07/2022 Document Reviewed: 03/07/2022 [employer] Patient Education ? 2022 [employer] 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 Getting up 3-4x/night, every night. Denies current pain/burning and visible blood in urine. States she has had 2 UTI's since April. Was hospitalized back in March @ [facility] [place] due to [place]. (No C&S at [facility] [place] Also at [facility]. C&S 03/24/23 *>100k E Coli & 50-60k [...] available) Was hospitalized back in March @ [facility] [place] due to [place]. (No C&S at [facility] [place] Also at [facility]. UA today shows trace-intact blood, positive nitrates [...] evening fluids and reducing bladder irritants. Ordered: 32268 Measure Post Void residual urine and/or bladder [...] Urnls Dip Stick Auto w/o Microscopy POC 42920 Follow-up With When Contact Information CEZAR BERNAL, Cayden Hollins, URL [address] [address]- Additional Instructions: Schedule cysto/UD Patient Education Urethral Stricture Documentation recorded by the scribzulema Mantilla accurately reflects the services(s) I performed and decisions made by me. Authenticated by Brenda Marin PA-C on 06/05/2023 17:59:01. I, Dori Mantilla, personally scribed for Brenda Marin PA-C on [...] 2 tab (more content not included)... Normal [facility] Comment on above: Result Comment: Elec tronically Signed By: BRENDA MARIN PA-C.br\Date and Time Signed: 06/05/23 17:59 EST\.br\Electronically Co-Signed By: Dori Mantilla.br\Date and Time Co-Signed: 06/05/23 13:35 EST Insurance Correspondence Off iceon 04-19-2023 Insurance Correspondence Office [id number] 8#1.00TIFF Normal [facility] Discharge Instructionson Discharge Instructions [id number] [facility] [id number] 8#1.00TIFF Normal [facility] Outside Recordson 04-14-2023 Outside Records [id number] 3#1.00TIFF Normal [facility] BMPon 04-13-2023 Anion gap [Moles/Vol] 14 mmol/L Normal 6-16 [facility] Comment on above: Performed By: #### 2 993350, 0314216, 27672824 #### [facility] [address] [place] [address] Calcium [Mass/Vol] 9.1 mg/dL Normal 8.9-11.1 [facility] Comment on above: Performed By: #### 2 319576, 7224040, 78120564 #### [facility] [address] [place] [address] Chloride [Moles/Vol] 114 mmol/L High 101-111 [facility] Comment on above: Performed By: #### 2 431135, 2199204, 54712551 #### [facility] [address] [place] [address] CO2 [Moles/Vol] 20 mmol/L Low 21-31 [facility] Comment on above: Performed By: #### 2 832272, 4145102, 71570983 #### [facility] [address] [place] [address] Creatinine [Mass/Vol] 1.2 mg/dL Normal 0.5-1.3 [facility] Comment on above: Performed By: #### 2 321771, 8520356, 47207010 #### [facility] [address] [place] [address] Glucose [Mass/Vol] 96 mg/dL Normal 55-199 [facility] Comment on above: Result Comment: If t his glucose result represents a fasting glucose, interpretation should refer to the following reference range: 55-99 mg/dL Performed By: #### 2 982057, 4192080, 96989428 #### [facility] [address] [place] [address] Potassium [Moles/Vol] 3.9 mmol/L Normal 3.5-5.3 [facility] Comment on above: Performed By: #### 2 789589, 2924392, 11255170 #### [facility] [address] [place] [address] Sodium [Moles/Vol] 144 mmol/L Normal 135-145 [facility] Comment on above: Performed By: #### 2 391467, 9086884, 79916704 #### [facility] [address] [place] [address] Urea nitrogen [Mass/Vol] 29 mg/dL High 5-21 [facility] Comment on above: Performed By: #### 2 488584, 2082746, 02437542 #### [facility] [address] [place] [address] Urea nitrogen/Creatinine [Mass ratio] 24 No Units High 10-20 [facility] Comment on above: Performed By: #### 2 429603, 1498684, 21632967 #### [facility] [address] [place] [address] CHEMISTRYOrdered By: SYSTEM SYSTEM on 04-13-2023 Anion gap [Moles/Vol] 14 mmol/L Normal 6 - 16 mEq/L [facility] Remisol Calcium [Mass/Vol] 9.1 mg/dL Normal 8.9 - 11. 1 mg/dL [facility] [place] Remisol Chloride [Moles/Vol] 114 mmol/L High 101 [...] 1.2 mg/dL Normal 0.5 - 1.3 mg/dL [facility] [place] Remisol GFR/1.73 sq M.predicted among non-blacks MDRD (S/P/Bld) [Vol rate/Area] 47 mL/min/1.73 m2 Low >=59mL/min/1 .73 m2 [facility] [place] Chem S Comment on above: Interpretive Data: C hronic kidney disease could be indicated at eGFR's of less than 60 mL/min/1.73m2. Kidney failure is indicated at less than 15 mL/min/1.73m2. Glucose [Mass/Vol] 96 mg/dL Normal 55 - 199 mg/dL [facility] [place] Remisol Comment on above: Interpretive Data: I f this glucose result represents a fasting glucose, interpretation should refer to the following reference range: 55-99 mg/dL Potassium [Moles/Vol] 3.9 mmol/L Normal 3.5 - 5.3 mmol/L [facility] [place] Remisol Sodium [Moles/Vol] 144 mmol/L Normal 135 - 145 mmol/L FT Remisol Triglyceride [Mass/Vol] 106 mg/dL Normal <=149mg/dL [facility] Remisol Urea nitrogen [Mass/Vol] 29 mg/dL High 5 - 21 mg/dL [facility] [place] Remisol Urea nitrogen/Creatinine [Mass ratio] 24 mg/mg High 10 - 20 [facility] Discharge Note-Nursingon Discharge Note-Nursing AARON HOFFMANN :1945 Visit Date:04/12/2023 Inpatient Discharge Instructions Your Care Team Admitting Physician - Efrain Kurtz MD Consulting Physician - Ehsan Blair MD Reason [...] oral tablet) glucosamine oxymetazoline nasal (Afrin 0.05% [place]) Procedure History Cystourethroscopy with dilation of urethral [...] Pending Diagnostic Test Results None Pharmacy Information [facility] Discharge Instructions Follow up appts as writtenNo driving until cleared by PCP or neuroTake all medications as ordered, monitor prn medication use Previously Scheduled Follow-Up Appointments Sunday 1:00 PM EST With: MIAH ROE, BRENDA Poole Where: [facility] Normal [facility] Inpatient Clinical Summaryon 04-13-2023 Inpatient Clinical Summary [address] [address] Clinical Summary Person Information: Name: AARON HOFFMANN Age: 78 Years : 1945 Sex: Female PCP: JEREMIAH REED MD Marital Status: Race: White Ethnicity: Non- or Language: Czech Visit Id: Visit Reason: Altered mental status; AMS Speciality: Acuity: Enc Type: Observation Med Service: Medical Arrival: 04/12/2023 12:15:14 Discharge: Dispo Type: Admitted as IP to this Hosp Address: [address] [place] [address] [address] [place] [id number] Provider Notes: Diagnosis: 1:AMS (altered mental status); [...] Follow up: With: Address: When: Johnnie BERNAL, Ehsan[address] [address] Within 1 to 2 weeks Comments: This office is closed on Fridays. Please call the office on Sunday April 16, 2023 for a follow up appiontment. Thank you. With: Address: When: JEREMIAH REED [address] [place] [address] [facility] (1) Within 2 to 4 days Comments: Call for followup appointment With: Address: When: [facility] Comments: Call for followup appointment for anxiety/depression care. Type Location Start [place] [facility] Office Visit [facility] 06/05/2023 1:00 PM 06/05/2023 1:15 PM Confirmed Patient Education Information: Confusion aspirin Normal [facility] Inpatient Patient Summaryon 04-13-2023 Inpatient Patient Summary [address] [address] Patient Discharge Instructions PERSON INFORMATION Name: HERMELINDA HOFFMANNTHIA Flori Date of : 1945 Current Date: 04/13/2023 12:14:32 PHYSICIANS Admitting Physician: Efrain Kurtz MD Primary Care Physician: JEREMIAH REED MD PCP Comment: Discharge Diagnosis: 1:AMS (altered mental status); 2:Elevated serum creatinine; 3:HTN (hypertension); 4:Anxiety and depression; 5:Peripheral neuropathy; 6:Chronic GERD; 7:OAB (overactive bladder); 8:Obesity; 9:On deep vein thrombosis (DVT) prophylaxis; Depression, unspecified Condition at Discharge: Stable АННАAARON JOHNSON has been given the following list of [...] With: Address: When: Johnnie BERNAL, ALPHONSE Choi [address] [address] Within 1 to 2 weeks Comments: This office is closed on Fridays. Please call the office on Sunday April 16, 2023 for a follow up appiontment. Thank you. With: Address: When: JEREMIAH REED [address] [place] [address] [facility] [email or web address] Within 2 to 4 days Comments: Call for followup appointment With: Address: When: [facility] Comments: Call for followup appointment for anxiety/depression care. In the event that this physician does not participate in your insurance network, please consult with your insurance company to find a nearby participating provider. Type Location Start [facility] Office Visit [facility] 06/05/2023 1:00 PM 06/05/2023 1:15 PM [...] 2 adán (more content not included)... Normal [facility] Interdisciplinary Note - Danie e Manageron 04-13-2023 Interdisciplinary Note - Mold Release Worker Pt is awake and alert in bed, previously rounded with Radha PENNY. Pending Neurology to see and pending MRI. Pending therapy evals, Observation status reviewed [facility] form reviewed, signed by pt and original provided. PT is independent from home, family at bedside and will transport at [place], Declines any concerns or anticipate DC needs. . PCP verified and insurance information reviewed and DME discussed. Contact information provided and white board updated. CRM returned to pt room to discuss DC plans. PT= HH and pt is agreeable to HH at [place], prefers to use [facility] as she has used in past, referral to resource center, anticipate DC home today. Nursing and MILL HAND updated. Normal [facility] Comment on above: Result Comment: Elec tronically Signed By: Thu ALVARES, Sallie\.mario\Date and Time Signed: 04/13/23 12:17 EST Interdisciplinary Note - Ashly n 04-13-2023 Interdisciplinary Note - OT OT [facility] six clicks score = no further OT needs. Patient requires Dist sup w/ transfers. completes Adls w/ dist sup after set up. Dc inpatient OT services as pt appears close to baseline status and has all bathroom dme already in place at home. Normal [facility] Interdisciplinary Note - Soc ial Workeron 04-13-2023 Interdisciplinary Note - Mattress Specialist This SW met with patient today to [...] any substances. SW will remain available. Normal [facility] Lipid Panelon 04-13-2023 Cholesterol [Mass/Vol] 164 mg/dL Normal 120-200 [facility] Comment on above: Performed By: #### 2 592993, 2312228, 59428235 #### [facility] [address] [place] [address] Cholesterol in HDL [Mass/Vol] 62 mg/dL Invalid Interpretation Code [facility] Comment on above: Result Comment: HDL > or equal to 60 mg/dL: Low cardiovascular risk HDL < 40 mg/dL : High cardiovascular risk Performed By: #### 2 159927, 9079406, 54131888 #### [facility] [address] [place] [address] Cholesterol in LDL [Mass/Vol] 73 mg/dL Normal <=129 [facility] Comment on above: Performed By: #### 2 664558, 9708835, 45086921 #### [facility] [address] [place] [address] Cholesterol in VLDL [Mass/Vol] 21 mg/dL Normal 7-40 [facility] Comment on above: Performed By: #### 2 035521, 7376318, 44559052 #### [facility] [address] [place] [address] Triglyceride [Mass/Vol] 106 mg/dL Normal <=149 F [facility] Comment on above: Performed By: #### 2 001701, 2673281, 62916193 #### [facility] [address] [place] [address] MRI Brain w/o Contraston MRI Brain w/o [...] LESLEY Technologist: MAXI Technical Comments None Normal [facility] Message from Medicareon 12 Message from Medicare [id number] 20 [id number] #1.00TIFF Normal [facility] Monitor Recordon 04-13-2023 Monitor Record [id number] 6#1.00TIFF Normal [facility] Monitor Record [id number] 8#1.00TIFF Normal [facility] eGFRon 04-13-2023 GFR/1.73 sq M.predicted among non-blacks MDRD (S/P/Bld) [Vol rate/Area] 47 mL/min/1.73 m2 Low >=59 [facility] Comment on above: Order Comment: Order added by Discern Expert. Result Comment: Nitrating Acid Mixer sally kidney disease could be indicated at eGFR's of less than 60 mL/min/1.73m2. Kidney failure is indicated at less than 15 mL/min/1.73m2. Performed By: #### 2 781323, 6565021, 96128667 #### [facility] [address] [place] [address] Auto Diffon 04-12-2023 Basophils/100 WBC (Bld) 0.4 % Normal 0.0-2.0 F [facility] Comment on above: Order Comment: Order Added by Discern Expert. Performed By: #### 2 855878, 02178468, 9555702, 04848759, 7408253, 71254868, 442590660, 51625752, 8194096, 3781274, 8920476, 2538641 ####[facility] [address] [place] [address] Basophils/Leukocytes Auto (Bld) [Pure # fraction] 0.1 E9/L Normal 0.0-0.2 [facility] Comment on above: Order Comment: Order Added by Discern Expert. Performed By: #### 2 177648, 72502813, 5944915, 13106525, 8979872, 08422848, 595362679, 46677560, 8126274, 8183167, 5925773, 1486315 ####[facility] [address] [place] [address] Eosinophils/100 WBC (Bld) 0.1 % Normal 0.0-8.0 [facility] Comment on above: Order Comment: Order Added by Discern Expert. Performed By: #### 2 175169, 44343211, 6408987, 52607279, 8700956, 85804776, 122240610, 22959736, 1614215, 7477626, 2936244, 9618491 ####[facility] [address] [place] [address] Eosinophils/Leukocytes Auto (Bld) [Pure # fraction] 0.0 E9/L Normal 0.0-0.5 [facility] Comment on above: Order Comment: Order Added by Discern Expert. Performed By: #### 2 353697, 22325126, 1315770, 06863706, 9783515, 98181863, 400697761, 77535990, 2188349, 6950634, 9691950, 0324187 ####[facility] [address] [place] [address] Lymphocytes/100 WBC (Bld) 9.7 % Low 14.0-50.0 [facility] Comment on above: Order Comment: Order Added by Discern Expert. Performed By: #### 2 483534, 93912089, 0198562, 92490794, 2122476, 30881822, 183659459, 81684564, 1378482, 3933849, 1928787, 2221448 ####[facility] [address] [place] [address] Lymphocytes/Leukocytes Auto (Bld) [Pure # fraction] 1.5 E9/L Normal 1.0-4.0 [facility] Comment on above: Order Comment: Order Added by Discern Expert. Performed By: #### 2 114232, 23939791, 8588286, 69664135, 9799484, 54586499, 362258730, 54768185, 5052813, 6622083, 6424500, 2393287 ####[facility] [address] [place] [address] Monocytes/100 WBC (Bld) 7.8 % Normal 4.0-14.0 [facility] Comment on above: Order Comment: Order Added by Discern Expert. Performed By: #### 2 250239, 03267275, 4363530, 56064291, 9665886, 26983921, 693846734, 21212372, 6145706, 1494104, 9368448, 8045243 ####[address] [place] [address] Monocytes/Leukocytes Auto (Bld) [Pure # fraction] 1.2 E9/L High 0.2-1.0 [facility] Comment on above: Order Comment: Order Added by Discern Expert. Performed By: #### 2 978417, 91593292, 0854977, 90116809, 1097619, 49872657, 606628371, 98207275, 6220081, 5571019, 0199913, 8653941 ####[facility] [address] [place] [address] Neutrophils/100 WBC (Bld) 82.0 % High 36.0-75.0 [facility] Comment on above: Order Comment: Order Added by Discern Expert. Performed By: #### 2 593468, 20149078, 5245458, 53619080, 9111901, 07060428, 903666112, 39763974, 0594510, 6609405, 8092201, 6961968 ####[facility] [address] [place] [address] Neutrophils/Leukocytes Auto (Bld) [Pure # fraction] 12.4 E9/L High 2.0-7.5 [facility] Comment on above: Order Comment: Order Added by Discern Expert. Performed By: #### 2 043936, 70300344, 2398899, 22085468, 0197130, 31621890, 812777763, 08740515, 6839708, 8738815, 2325181, 9725840 ####[facility] [address] [place] [address] BMPon 04-12-2023 Creatinine [Mass/Vol] 1.8 mg/dL High 0.5-1.3 [facility] Comment on above: Performed By: #### 2 604391, 97501655, 0238057, 23503297, 9551499, 09997314, 748767248, 20817958, 6585961, 1918544, 5698451, 5004336 ####[facility] [address] [place] [address] Urea nitrogen [Mass/Vol] 39 mg/dL High 5-21 [facility] Comment on above: Performed By: #### 2 678208, 96893509, 9597393, 43270800, 0392297, 69179757, 899031209, 87001640, 2056601, 1389779, 9529588, 1762142 ####[facility] [address] [place] [address] Urea nitrogen/Creatinine [Mass ratio] 22 No Units High 10-20 [facility] Comment on above: Performed By: #### 2 312399, 75842358, 1225085, 06418860, 2656604, 88349127, 733451734, 31442493, 2262496, 3514595, 8373114, 5002999 ####[facility] [address] [place] [address] Anion gap [Moles/Vol] 16 mmol/L Normal 6-16 [facility] Comment on above: Performed By: #### 2 770234, 44017972, 4480812, 67436810, 1924860, 36124156, 436669313, 40608949, 6328952, 2619140, 4744332, 9780605 ####[facility] [address] [place] [address] Calcium [Mass/Vol] 10.0 mg/dL Normal 8.9-11.1 [facility] Comment on above: Performed By: #### 2 795585, 44596904, 7943184, 32030925, 3559701, 29177492, 924689802, 11892593, 6227365, 6152499, 6167833, 9264035 ####[facility] [address] [place] [address] Chloride [Moles/Vol] 109 mmol/L Normal 101-111 [facility] Comment on above: Performed By: #### 2 758799, 60864293, 2939009, 00201468, 4027436, 46219629, 899338776, 63130438, 9801429, 9481895, 5510330, 3592082 ####[facility] [address] [place] [address] CO2 [Moles/Vol] 23 mmol/L Normal 21-31 [facility] Comment on above: Performed By: #### 2 587773, 65495578, 3661077, 44241971, 3946953, 86273239, 350160387, 69824176, 7000122, 0302070, 2592307, 1977508 ####[facility] [address] [place] [address] Glucose [Mass/Vol] 89 mg/dL Normal 55-199 [facility] Comment on above: Result Comment: If t his glucose result represents a fasting glucose, interpretation should refer to the following reference range: 55-99 mg/dL Performed By: #### 2 661153, 46848869, 8854961, 43209709, 7293800, 87169505, 368994080, 49929330, 1828496, 7554330, 5150411, 1735597 ####[facility] [address] [place] [address] Potassium [Moles/Vol] 4.3 mmol/L Normal 3.5-5.3 [facility] Comment on above: Performed By: #### 2 469427, 19071931, 1216270, 63588868, 8465562, 23748016, 373826357, 10264021, 8999002, 4990048, 0502783, 7603471 ####[facility] [address] [place] [address] Sodium [Moles/Vol] 144 mmol/L Normal 135-145 [facility] Comment on above: Performed By: #### 2 134003, 39365504, 3540063, 12394256, 0924171, 34371327, 465115874, 26248453, 1713181, 7784466, 5766217, 3510390 ####[facility] [address] [place] [address] CBC w/ Auto Diffon 3 Erythrocyte distribution width (RBC) [Ratio] 15.3 % High 10.9-14.2 [facility] Comment on above: Performed By: #### 2 471591, 18776613, 9936359, 41993685, 4730958, 73878266, 025957980, 94869472, 1807472, 6480391, 4670372, 8468476 ####[facility] [address] [place] [address] Hematocrit (Bld) [Volume fraction] 44.4 % Normal 34.0-46.0 [facility] Comment on above: Performed By: #### 2 561049, 17466609, 7142167, 87660011, 5831478, 95640718, 915812721, 43138215, 2496282, 0861721, 7307184, 6044478 ####[facility] [address] [place] [address] Hemoglobin (Bld) [Mass/Vol] 14.0 g/dL Normal 12.0-16.0 [facility] Comment on above: Performed By: #### 2 755586, 14081683, 8976645, 92545381, 5463843, 46196556, 832617605, 02968160, 1422858, 7861756, 6811652, 2249767 ####[facility] [address] [place] [address] MCH (RBC) [Entitic mass] 28.5 pg Normal 27.0-34.0 [facility] Comment on above: Performed By: #### 2 667369, 86560643, 0778227, 29536394, 3391149, 15940786, 011015580, 89431435, 6440820, 5560698, 0272189, 7598785 ####[address] [address] MCHC (RBC) [Mass/Vol] 31.6 g/dL Normal 31.4-36.0 [facility] Comment on above: Performed By: #### 2 086045, 94441584, 5085939, 39604633, 2055905, 82382668, 003219650, 74137534, 7796746, 2578064, 3242602, 1070994 ####[address] [place] [address] MCV (RBC) [Entitic vol] 89.9 fL Normal 80.0-100.0 F [facility] Comment on above: Performed By: #### 2 815333, 69403513, 1104430, 66154915, 9697255, 37885097, 072465350, 88798566, 0912781, 6570652, 9300361, 0137993 ####[address] [place] [address] Platelet mean volume (Bld) [Entitic vol] 9.8 fL Normal 6.4-10.8 [facility] Comment on above: Performed By: #### 2 979443, 75202453, 4871470, 65686977, 7859228, 66556680, 014427071, 65264340, 0203876, 2889656, 1617949, 3869055 ####[facility] [address] [place] [address] Platelets (Bld) [#/Vol] 285.0 E9/L Normal 150.0-500.0 [facility] Comment on above: Performed By: #### 2 201122, 61341458, 8363827, 26757649, 6758415, 09330424, 229101549, 22634390, 7763657, 1034728, 4414567, 0372457 ####[facility] [address] [place] [address] RBC (Bld) [#/Vol] 4.9 E12/L Normal 4.3-5.9 [facility] Comment on above: Performed By: #### 2 463213, 18586321, 7566192, 19968540, 2007211, 67658042, 788577519, 55389999, 1683598, 5039208, 3281982, 6381179 ####[facility] [address] [place] [address] WBC corrected for nucl RBC Auto (Bld) [#/Vol] 15.1 E9/L High 4.0-11.0 [facility] Comment on above: Performed By: #### 2 692722, 31327359, 7684555, 38029233, 7742027, 63210333, 271539307, 39010731, 1015625, 9842144, 3196291, 6792877 ####[facility] [address] [place] [address] CHEMISTRYOrdered By: SYSTEM SYSTEM on 04-12-2023 Amphetamines [...] mg/dL Normal 1.3 - 2 .4 mg/dL [facility] Potassium [Moles/Vol] 4.3 mmol/L Normal 3.5 - 5.3 mmol/L [facility] Protein [Mass/Vol] 7.7 g/dL Normal 6.0 - 7.8 gm/dL [facility] Sodium [Moles/Vol] 144 mmol/L Normal 135 - 145 mmol/L [facility] Troponin I.cardiac [Mass/Vol] 11.90 pg/mL Normal 10.10 - 27.10 pg/mL [facility] Comment on above: Interpretive Data: T he 95% CI (Confidence Interval) PPV (Positive Predictive Value) for myocardial infarction in females is 38 pg/mL, in males 51 pg/mL. The results should be used in conjunction with clinical conditions of myocardial infarction. (Access High Sensitivity Troponin I Instructions For Use, Laly Hidalgo, December 2017) TSH Qn 0.52 m[IU]/L Normal 0.34 - 5.60 mcIU/mL FT Remisol Urea nitrogen [Mass/Vol] 39 mg/dL High 5 - 21 mg/dL FT Remisol Urea nitrogen/Creatinine [Mass ratio] 22 mg/mg High 10 - 20 [facility] [place] Remisol CHEMISTRYOrdered By: Shauna kendall on 04-12-2023 HbA1c (Bld) [Mass fraction] 5.9 % Normal <=5.9% [facility] [place] ChemAutoSS CHEMISTRYOrdered By: Lab ROP User on 04-12-2023 Glucose [Mass/Vol] 88 mg/dL Normal 55 - 99 mg/dL [facility] [place] POC Subsection Comment on above: Result Comment: Jose matos RN/ POC Username [place] Invalid Interpretation Code [facility] [place] POC Subsection Sodium [Moles/Vol] [id number] mmol/L Invalid Interpretation Code [facility] [place] POC Subsection Sodium [Moles/Vol] [id number] mmol/L Invalid Interpretation Code [facility] [place] POC Subsection COAGULATIONOrdered By: Myra Grayson on 04-12-2023 aPTT Coag (PPP) [Time] 29.5 s Normal 25.1 - 36.5 second(s) [facility] [place] Auto Coag Comment on [...] the same coagulation reagent and instrumentation as [facility] [place]. Currently there are no coagulation studies available worldwide for children to 14 days, and no normal ranges. Heparin therapeutic range (represented by Anti-Factor Xa activity of 0.2 - 0.4 U/mL) corresponds to PTT of 56.6 - 109.0 sec. INR Coag (PPP) [Relative time] 0.9 {INR} Invalid Interpretation Code [facility] [place] Auto Coag Comment on above: Interpretive Data: I NR results are specifically intended to assess patients stabilized on long-term Anticoagulation therapy suggested INR s Less Intensive Anticoagulation 2.0 3.0 Conventional Range 3.0 4.5 PT Coag (PPP) [Time] 10.4 s Normal 9.4 - 1 2.5 second(s) [facility] [place] Auto Coag Comment on [...] obtained from a study by makenna Chase alCarlos prepared from 1437 samples obtained at 7 different centers using the same coagulation reagent and instrumentation as [facility] [place]. Currently there are no coagulation studies available worldwide for children to 14 days, and no normal ranges. CT Head or Brain w/o Contras ton 11-30-2023 CT Head or Brain w/o Contrast Exam [...] MD Transcribed by: LESLEY Technologist: SOFIA Guaman [facility] CT Spine Cervical w/o Contra ston [...] Signed by: Jae Barry MD Transcribed by: DP Technologist: NMP Normal [facility] Capillary Glucose POCon 03-16 Glucose [Mass/Vol] 88 mg/dL Normal 55-99 [facility] Comment on above: Result Comment: Jose matos RN/ Performed By: #### 2 [id number] #### [facility] [address] [place] [address] Consent for Treatmenton 03-16 Consent for Treatment [id number] #1.00TIFF Normal [facility] ED Clinical Summaryon 2022 ED Clinical Summary [address] [address] ED Clinical Summary Person Information Name: AARON HOFFMANN [facility] Age: 78 Years : 1945 Sex: Female Language: Czech PCP: JEREMIAH REED MD Marital Status: Visit Id: Visit Reason: Altered mental status; AMS Speciality: Acuity: 2 Enc Type: Observation Med Service: Emergency Arrival: 04/12/2023 12:15:14 Discharge: LOS: 000 04:45 Checkin: 04/12/2023 12:15:14 Checkout: 04/12/2023 17:00:36 Dispo Type: Admitted as IP to this [facility] EVENTS: Event Name Event Status [...] Labs Collected 04/12/2023 16:57:50 04/12/2023 16:57:50 ADDRESS: [facility] [place] [id number] PHYS DOC NOTES: MEDICAL INFORMATION: Prescriptions Given: [...] vein thrombosis (DVT) prophylaxis; Depression, unspecified Normal [facility] ED Note-Physicianon 04-12-20 ED Note-Physician Basic [...] had a urinary tract infection diagnosed at [facility] for which she is on antibiotics. She [...] deep vein thrombosis (DVT) prophylaxis (Z79.899: 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) drug therapy) Depression, unspecified (F32.A: [...] 500 mL 500 mL, 500 mL, IV [id number] units/mLInjection [F], 5000 unit(s), SubCutaneous oxym0.05Spr [F], [...] of uret (more content not included)... Normal [facility] Comment on above: Result Comment: Elec tronically Signed By: Abran Holguin DO\.br\Date and Time Signed: 04/12/23 22:13 EST ED Patient Education Noteon 04-12-2023 ED Patient Education Note Normal [facility] ED Patient Summaryon 023 ED Patient Summary [place] [id number] Patient Discharge Instructions Person Information Name: AARON HOFFMANN Age: 78 Years Arrival Date: 04/12/2023 12:15:14 Discharge Diagnosis: 1:AMS (altered mental status); 2:Elevated serum creatinine; 3:HTN (hypertension); 4:Anxiety and depression; 5:Peripheral neuropathy; 6:Chronic GERD; 7:OAB (overactive bladder); 8:Obesity; 9:On deep vein thrombosis (DVT) prophylaxis; Depression, unspecified Primary Care Physician: JEREMIAH REED MD Provider Information Primary Provider: Abran Holguin DO [employer] Recreation Manager:None The exam and treatment you received in the Emergency Department were for an urgent problem and are not intended as complete care. It is important that you follow up with a doctor, nurse practitioner, or physician?s higher level teaching assistant for ongoing care. If your symptoms become worse or you do not improve as expected and you are unable to reach your usual health care provider, you should return to the Emergency Department. We are available 24 hours a day. AARON HOFFMANN has been given the following list of [...] opioids can be used to help relieve lvwbaabk-fn-furelg pain and are often prescribed following a [...] be struggling with addiction, tell your health pet caretaker and ask for guidance or (more content not included)... Normal [facility] Ethanolon 04-12-2023 Ethanol [Mass/Vol] mg/dL Normal <=7 [facility] Comment on above: Performed By: #### 2 [id number] #### [facility] [address] [place] [address] Folateon 04-12-2023 Folate [Mass/Vol] ng/mL Normal >=6.7 [facility] Comment on above: Performed By: #### 2 097226 #### [facility] [address] [place] [address] HEMATOLOGYOrdered By: SYSTEM SYSTEM on 04-12-2023 Basophils/100 [...] 12.4 E9/L High 2.0 - 7.5 E9/L FT HemeAutoSS HEMATOLOGYOrdered By: Mary Ellsworth on 04-12-2023 Erythrocyte distribution width (RBC) [Ratio] 15.3 % High 10.9 - 14.2 % FT HemeAutoSS Hematocrit (Bld) [Volume fraction] 44.4 % Normal 34.0 - 46.0 % FT HemeAutoSS Hemoglobin (Bld) [Mass/Vol] 14.0 g/dL Normal 12.0 - 16.0 gm/dL FT HemeAutoSS MCH (RBC) [Entitic mass] 28.5 pg Normal 27.0 - 34.0 pg [facility] HemeAutoSS MCHC (RBC) [Mass/Vol] 31.6 g/dL Normal 31.4 - 36.0 gm/dL FT HemeAutoSS MCV (RBC) [Entitic vol] 89.9 fL [...] 04-12-2023 Albumin [Mass/Vol] 4.4 g/dL Normal 3.3-5.0 [facility] Comment on above: Performed By: #### 2 540766, 61588310, 4775863, 06428701, 9871655, 80445600, 215571781, 61696996, 9609368, 0894751, 0862757, 1501427 ####[facility] [address] [place] [address] Albumin/Globulin (S) [Mass conc ratio] 1.3 Normal 1.1-2.2 [facility] Comment on above: Performed By: #### 2 084434, 32126019, 7854619, 39688131, 3390385, 41109685, 285091803, 00632512, 1143222, 3686040, 1512402, 2202850 ####[facility] [address] [place] [address] ALP [Catalytic activity/Vol] 78 Int._Unit/L Normal 21-98 [facility] Comment on above: Performed By: #### 2 859356, 24826240, 1298751, 19577687, 1874184, 64025176, 338405362, 24653808, 3636309, 2535503, 2607757, 2628714 ####[facility] [address] [place] [address] ALT No additional P-5'-P [Catalytic activity/Vol] 22 Int._Unit/L Normal 6-46 [facility] Comment on above: Performed By: #### 2 281704, 90150066, 3083204, 22236496, 7010548, 36969723, 525330385, 93803625, 8894004, 2636519, 5840167, 0590131 ####[facility] [address] [place] [address] AST [Catalytic activity/Vol] 25 Int._Unit/L Normal 5-43 [facility] Comment on above: Performed By: #### 2 020425, 17463207, 1399851, 25373241, 9831725, 05647552, 334377841, 67398300, 2960278, 5789409, 8769192, 5808014 ####[facility] [address] [place] [address] Bilirubin [Mass/Vol] 0.7 mg/dL Normal 0.0-1.1 [facility] Comment on above: Performed By: #### 2 294968, 41994804, 1810170, 50672995, 6261089, 73905190, 384050975, 85892188, 6190278, 1416999, 2701310, 0426008 ####[facility] [address] [place] [address] Bilirubin.direct [Mass/Vol] 0.1 mg/dL Normal 0.1-0.4 [facility] Comment on above: Performed By: #### 2 319820, 04425274, 1957735, 29490832, 9794461, 24727186, 089174783, 93668806, 7471899, 4808261, 5267167, 0017932 ####[facility] [address] [place] [address] Bilirubin.indirect [Mass or moles/Vol] 0.6 mg/dL Normal 0.1-0.9 [facility] Comment on above: Performed By: #### 2 921666, 93033409, 7195494, 78592692, 0661331, 31311462, 186359667, 03565103, 7861595, 2923986, 4372961, 9478906 ####[place] [address] [place] [address] Globulin (S) [Mass/Vol] 3.3 g/dL Normal 1.4-4.0 [facility] Comment on above: Performed By: #### 2 808393, 88266277, 6833778, 24550366, 3954933, 52449202, 544588606, 65495614, 7845563, 7713278, 1596842, 5202317 ####[facility] [address] [place] [address] Protein [Mass/Vol] 7.7 g/dL Normal 6.0-7.8 [facility] Comment on above: Performed By: #### 2 426994, 43724268, 2237912, 75181782, 6572023, 60097283, 859041525, 81155812, 0528758, 9357131, 2002539, 8422359 ####[facility] [address] [place] [address] DvfW0oqw 04-12-2023 HbA1c (Bld) [Mass fraction] 5.9 % Normal <=5.9 [facility] Comment on above: Performed By: #### 2 013398 #### [facility] [address] [place] [address] Magnesiumon 04-12-2023 Magnesium [Mass/Vol] 2.0 mg/dL Normal 1.3-2.4 [facility] Comment on above: Performed By: #### 2 613465 #### [facility] [address] [place] [address] Monitor Recordon 04-12-2023 Monitor Record [id number] 0#1.00TIFF Normal [facility] Monitor Record [id number] 24#1.00TIFF Normal [facility] PT & PTTon 04-12-2023 aPTT Coag (PPP) [Time] 29.5 second(s) Normal 25.1-36.5 [facility] Comment on above: Result Comment: Para [...] the same coagulation reagent and instrumentation as [facility] [place]. Currently there are no coagulation studies available worldwide for children to 14 days, and no normal ranges. Heparin therapeutic range (represented by Anti-Factor Xa activity of 0.2 - 0.4 U/mL) corresponds to PTT of 56.6 - 109.0 sec. Performed By: #### 2 496584, 29324278, 5912586, 77146011, 0306773, 98477614, 206514442, 58465967, 8816966, 2671572, 8182582, 9034534 ####[facility] [address] [place] [address] INR Coag (PPP) [Relative time] 0.9 {INR} Invalid Interpretation Code [facility] Comment on above: Result Comment: INR results are specifically intended to assess patients stabilized on long-term Anticoagulation therapy suggested INR?s ?Less Intensive Anticoagulation? 2.0 ? 3.0 Conventional Range 3.0 ? 4.5 Performed By: #### 2 560073, 13838809, 4361207, 92234118, 9017208, 28550299, 714211479, 26630736, 5464046, 4090789, 6509017, 1387246 ####[facility] [address] [place] [address] PT Coag (PPP) [Time] 10.4 second(s) Normal 9.4-12.5 [facility] Comment on above: Result Comment: 15 [...] the same coagulation reagent and instrumentation as [facility] [place]. Currently there are no coagulation studies available worldwide for children to 14 days, and no normal ranges. Performed By: #### 2 769744, 98543711, 4366057, 73867816, 7463984, 51806800, 975437827, 65991347, 1315553, 8464386, 0789019, 1733277 ####[facility] [address] [place] [address] Pre-Arrival Noteon 3 Pre-Arrival Note Pre-Arrival Summary Name: , Current Date: 04/12/2023 12:18:15 EST Gender: Female Date of : Age: 88 Pre-Arrival Type: EMS ETA: 04/12/2023 12:29:00 EST Primary Care Physician: Presenting Problem: altered mental status Pre-Arrival User: Paul ALVARES, Brenda Talbert Referring Source: Location: Completion Date/Time: 04/12/2023 11:59:00 [facility] Emergency Department Pre-Hospital Report Form Vital Signs: Pre-Hospital Report: Treatment in Route: Response to Treatment: Misc. Issues: Normal [facility] RAD - MRI Screening Formon 1 06-12-2022 RAD - MRI Screening Form [id number] 7#1.00TIFF Normal [facility] TSH With T4fr Reflexon 04-12 TSH Qn 0.52 m[IU]/L Normal 0.34-5.60 [facility] Comment on above: Performed By: #### 2 116696 #### [facility] [address] [place] [address] Troponin 0 Hr.on 04-12-2023 Troponin I.cardiac [Mass/Vol] 11.90 pg/mL Normal 10.10-27.10 [facility] Comment on above: Order Comment: per yoshi LINTON RN is drawing labs and sending npt106 04/12/2023 12:26:28 EST Result Comment: The 95% CI (Confidence Interval) PPV (Positive Predictive Value) for myocardial infarction in females is 38 pg/mL, in males 51 pg/mL. The results should be used in conjunction with clinical conditions of myocardial infarction. (Access High Sensitivity Troponin I Instructions For Use, Laly Hidalgo, December 2017) Performed By: #### 2 566261, 75651733, 5176214, 99253261, 9141834, 12881780, 047468534, 19207758, 3530805, 5972309, 3995844, 2616155 ####[facility] [address] [place] [address] U Drug Screenon 04-12-2023 Benzodiazepines Ql (U) Positive Abnormal Negative Fi [facility] Comment on above: Result Comment: Crit ical Result UD_BENZ:POS Called to ABRAN HOLGUIN AT ER by URSULA LOZANO And Read Back For Confirmation at: 04/12/2023 15:35:32\Unconfirmed by alternate method\Results verified by repeat analysis\No confirmation requested by Physicmarie Negative Cutoff: <200 ng/mL Performed By: #### 2 823614 #### [facility] [address] [place] [address] Amphetamines Screen method >1000 ng/mL Ql (U) Negative Normal Negative [facility] Comment on above: Result Comment: Nega tive Cutoff: <1000 ng/mL Performed By: #### 2 107766 #### [facility] [address] [place] [address] Barbiturates Screen Ql (U) Negative Normal Negative [facility] Comment on above: Result Comment: Nega tive Cutoff: <200 ng/mL Performed By: #### 2 515669 #### [facility] [address] [place] [address] Cocaine Ql (U) Negative Normal Negative [facility] Comment on above: Result Comment: Nega tive Cutoff: <300 ng/mL Performed By: #### 2 163095 #### [facility] [address] [place] [address] Opiates Screen Ql (U) Negative Normal Negative [facility] Comment on above: Result Comment: Nega tive Cutoff: <300 ng/mL Performed By: #### 2 698023 #### [facility] [address] [place] [address] Phencyclidine Screen method >25 ng/mL Ql (U) Negative Normal Negative [facility] Comment on above: Result Comment: Nega tive Cutoff: <25 ng/mL These drug screen results are to be used for medical (i.e., treatment) purposes only. Unconfirmed drug screening results must not be used for non-medical purposes (e.g., employment testing, legal testing). Performed By: #### 2 533156 #### [facility] [address] [place] [address] Tetrahydrocannabinol Screen method >50 ng/mL Ql (U) Negative Normal Negative [facility] Comment on above: Result Comment: Nega tive Cutoff: <50 ng/mL Performed By: #### 2 960448 #### [facility] [address] [place] [address] UA With Cult Reflexon 2022 Bacteria LM Ql (Urine sed) TRACE Normal Trace [facility] Comment on above: Performed By: #### 1 6554996 #### [facility] [address] [place] [address] Bilirubin Ql (U) Negative Normal Negative [facility] Comment on above: Performed By: #### 1 9942231 #### [facility] [address] [place] [address] Clarity (U) CLEAR Normal Clear [facility] Comment on above: Performed By: #### 1 1551367 #### [facility] [address] [place] [address] Color (U) YELLOW Normal Yellow [facility] Comment on above: Performed By: #### 1 5805273 #### [facility] [address] [place] [address] Epithelial cells.squamous LM.HPF (Urine sed) [#/Area] 0-2 Normal 0-2 [facility] Comment on above: Performed By: #### 1 5799100 #### [facility] [address] [place] [address] Glucose Test strip (U) [Mass/Vol] Negative Normal Negative [facility] Comment on above: Performed By: #### 1 6809887 #### [facility] [address] [place] [address] Hemoglobin Ql (U) Negative Normal Negative [facility] Comment on above: Performed By: #### 1 7939740 #### [facility] [address] [place] [address] Ketones (U) [Mass/Vol] TRACE Abnormal Negative [facility] Comment on above: Performed By: #### 1 3918552 #### [facility] [address] [place] [address] Herkimer.plasma/Herkimer. RBC (Bld) [Mass ratio] 0-3 Normal 0-3 [facility] Comment on above: Performed By: #### 1 0500489 #### [facility] [address] [place] [address] Mucus Ql (Urine sed) TRACE Normal [facility] Comment on above: Performed By: #### 1 4504565 #### [facility] [address] [place] [address] Nitrite Ql (U) Negative Normal Negative [facility] Comment on above: Performed By: #### 1 3914565 #### [facility] [address] [place] [address] pH (U) 5.0 [pH] Invalid Interpretation Code 5.0-9.0 [facility] Comment on above: Performed By: #### 1 6054506 #### [facility] [address] [place] [address] Protein (U) [Mass/Vol] TRACE Abnormal Negative [facility] Comment on above: Performed By: #### 1 6233335 #### [facility] [address] [place] [address] Specific gravity (U) [Rel density] >=1.030 Invalid Interpretation Code 1.005-1.030 [facility] Comment on above: Performed By: #### 1 5317071 #### [facility] [address] [place] [address] Type of Urine collection method Catheter Normal [facility] Comment on above: Performed By: #### 1 2553392 #### [facility] [address] [place] [address] Urobilinogen Qn (U) 0.2 {Nevaeh'U}/dL Normal 0.0-1.0 [facility] Comment on above: Performed By: #### 1 2266631 #### [facility] [address] [place] [address] WBC Auto Ql (U) Negative Normal Negative [facility] Comment on above: Performed By: #### 1 3696501 #### [facility] [address] [place] [address] WBC casts LM.LPF (Urine sed) [#/Area] 0-3 Normal [facility] Comment on above: Performed By: #### 1 3436213 #### [facility] [address] [place] [address] WBC LM.HPF (Urine sed) [#/Area] 0-5 Normal 0-5 [facility] Comment on above: Performed By: #### 1 4133894 #### [facility] [address] [place] [address] URINALYSISOrdered By: Bonny Workman on 04-12-2023 Bacteria LM Ql (Urine sed) Trace /HPF Normal Trace/HPF FT UA Auto SS Bilirubin Ql (U) Negative [...] Interpretation Code Negative [facility] UA Auto SS Herkimer.plasma/Herkimer. RBC (Bld) [Mass ratio] 0-3 /HPF Normal [...] [facility] UA Auto SS Urobilinogen Qn (U) 0.1868181 {Nevaeh'U}/dL Normal 0.0 - 1.0 EU/dL [facility] UA Auto SS WBC Auto Ql (U) Negative (04/12/23 2:32 PM) Normal Negative [facility] UA Auto SS WBC casts LM.LPF (Urine sed) [#/Area] 0-3 (04/12/23 2:32 PM) Normal [facility] UA Auto SS WBC LM.HPF (Urine sed) [#/Area] 0-5 /HPF Normal 0-5/HPF [facility] UA Auto SS Vit B12on 04-12-2023 Cobalamin (Vitamin B12) [Mass/Vol] 1018 pg/mL Normal 50-1500 [facility] Comment on above: Performed By: #### 2 264447 #### [facility] [address] [place] [address] XR Chest Single Viewon 04-12 XR Chest [...] mGy = na DAP = na Normal [facility] eGFRon 04-12-2023 GFR/1.73 sq M.predicted among non-blacks MDRD (S/P/Bld) [Vol rate/Area] 29 mL/min/1.73 m2 Low >=59 [facility] Comment on above: Order Comment: Order added by Discern Expert. Result Comment: Nitrating Acid Mixer sally kidney disease could be indicated at eGFR's of less than 60 mL/min/1.73m2. Kidney failure is indicated at less than 15 mL/min/1.73m2. Performed By: #### 2 355287, 68785945, 4376569, 92236308, 7268480, 15532106, 214593925, 54866209, 7533408, 7269290, 9832891, 8871806 ####[facility] [address] [place] [address] XR CSPINE OBL FLEX_EXTon XR CSPINE OBL [...] Serena OSORIO Date: 2022-09-02 00:37 Normal [facility] MRI SHOULDER RT WO CONon MRI SHOULDER [...] EHSAN MILLER Date: 2022-08-22 09:25 Normal [facility] XR SHOULDER RT 2V or >on XR [...] BRENT MALDONADO Date: 2022-08-10 22:45 Normal [facility] CT CHEST WO CONon 3 CT CHEST WO CON EXAMINATION: CT CHEST [...] EHSAN MILLER Date: 2022-06-12 16:56 Normal [facility] VIT D 1 25 DIHYDROXYon 04-24 Calcitriol(1,25 di-OH Vit D) 91.0 pg/mL Critically high 24.8-81.5 [facility] Comment on above: Performed By: #### V [id number] #### [facility] [address] [place] [address] Dr. Helio Cee CULTURE URINEon 04-23-2022 CULTURE [...] F Trimethoprim/Sulfame thoxazole <=20 S F Normal [facility] Comment on above: Performed By: #### U RCX #### [facility] [address] [place] [address] Dr. Helio Cee CBC AUTO DIFFon 04-21-2022 BASO # 0.0 103/ul Normal 0.0-0.1 [facility] Comment on above: Performed By: #### E RUR #### [facility] [address] [place] [address] Dr. Helio Cee Basophils/100 WBC (Bld) 0.4 % Normal 0.2-2.0 [facility] Comment on above: Performed By: #### E RUR #### [facility] [address] [place] [address] Dr. Helio Cee EO # 0.4 103/ul Normal 0.0-0.7 [facility] Comment on above: Performed By: #### E RUR #### [facility] [address] [place] [address] Dr. Helio Cee Eosinophils/100 WBC (Bld) 4.0 % Normal 0.9-7.0 [facility] Comment on above: Performed By: #### E RUR #### [facility] [address] [place] [address] Dr. Helio Cee Erythrocyte distribution width (RBC) [Ratio] 15.2 % Critically high 11.0-15.0 [facility] Comment on above: Performed By: #### E RUR #### [facility] [address] [place] [address] Dr. Helio Cee Hematocrit (Bld) [Volume fraction] 41.0 % Normal 36.0-48.0 [facility] Comment on above: Performed By: #### E RUR #### [facility] [address] [place] [address] Dr. Helio Cee Hemoglobin (Bld) [Mass/Vol] 12.9 g/dL Normal 12.0-16.0 [facility] Comment on above: Performed By: #### E RUR #### [facility] [address] [place] [address] Dr. Helio Cee IG # 0.04 10e3/ul Critically high 0.00-0.03 [facility] Comment on above: Performed By: #### E RUR #### [facility] [address] [place] [address] Dr. Helio Cee IG % 0.4 % Normal 0.0-0.5 [facility] Comment on above: Performed By: #### E RUR #### [facility] [address] [place] [address] Dr. Helio Cee LYMPH # 1.1 103/ul Critically low 1.2-3.8 [facility] Comment on above: Performed By: #### E RUR #### [facility] [address] [place] [address] Dr. Helio Cee Lymphocytes/100 WBC (Bld) 11.9 % Critically low 20.5-60.0 [facility] Comment on above: Performed By: #### E RUR #### [facility] [address] [place] [address] Dr. Helio Cee MANUAL DIFF REQ NO Normal [facility] Comment on above: Performed By: #### E RUR #### [facility] [address] [place] [address] Dr. Helio Cee MCH (RBC) [Entitic mass] 29.0 pg Normal 26.7-34.0 [facility] Comment on above: Performed By: #### E RUR #### [facility] [address] [place] [address] Dr. Helio Cee MCHC (RBC) [Mass/Vol] 31.5 g/dL Normal 29.9-35.2 [facility] Comment on above: Performed By: #### E RUR #### [facility] [address] [place] [address] Dr. Helio Cee MCV (RBC) [Entitic vol] 92.1 fL Normal 81.0-99.0 [facility] Comment on above: Performed By: #### E RUR #### [facility] [address] [place] [address] Dr. Helio Cee MONO # 0.4 103/ul Normal 0.3-0.8 [facility] Comment on above: Performed By: #### E RUR #### [facility] [address] [place] [address] Dr. Helio Cee Monocytes/100 WBC (Bld) 4.4 % Normal 1.7-12.0 [facility] Comment on above: Performed By: #### E RUR #### [facility] [address] [place] [address] Dr. Helio Cee NEUT # 7.3 103/ul Critically high 1.4-6.5 [facility] Comment on above: Performed By: #### E RUR #### [facility] [address] [place] [address] Dr. Helio Cee Neutrophils/100 WBC (Bld) 78.9 % Critically high 43.0-75.0 [facility] Comment on above: Performed By: #### E RUR #### [facility] [address] [place] [address] Dr. Helio Cee Platelet mean volume (Bld) [Entitic vol] 10.6 fL Normal 9.5-13.5 [facility] Comment on above: Performed By: #### E RUR #### [facility] [address] [place] [address] Dr. Helio Cee PLT 269 103/ul Normal 150-450 [facility] Comment on above: Performed By: #### E RUR #### [facility] [address] [place] [address] Dr. Helio Cee RBC 4.45 106/ul Normal 4.20-5.40 [facility] Comment on above: Performed By: #### E RUR #### [facility] [address] [address] [address] Helio Cee WBC 9.2 103/ul Normal 4.0-11.0 [facility] Comment on above: Performed By: #### E RUR #### [facility] [address] [address] [address] Helio Cee LIPID PROFILEon 04-21-2022 CHOL-HDL RATIO NORM SEE BELOW Normal [facility] Comment on above: Result Comment: 3.3 - 4.4 LOW RISK 4.4 - 7.1 AVERAGE RISK 7.1 - 11.0 MODERATE RISK >11.0 HIGH RISK Performed By: #### T SH, LIPID, CMP ####[facility] [address] [id number]. Helio Cee Cholesterol [Mass/Vol] 146 mg/dL Normal <=200 [facility] Comment on above: Performed By: #### T CAITLIN, LIPID, CMP ####[facility] [address] [id number]. Helio Cee Cholesterol in HDL [Mass/Vol] 63 mg/dL Critically high 40-60 [facility] Comment on above: Performed By: #### T CAITLIN, LIPID, CMP ####[facility] [address] [id number]. Helio Cee Cholesterol in LDL [Mass/Vol] 66.6 mg/dL Normal [facility] Comment on above: Performed By: #### T SH, LIPID, CMP ####[facility] [address] [id number]. Helio Cee Cholesterol.total/Lisa sterol in HDL [Mass ratio] 2.3 {ratio} Normal [facility] Comment on above: Performed By: #### T SH, LIPID, CMP ####[facility] [address] [id number]. Helio Cee HDL NORMAL > or = 60 mg/dl - LOW CARDIOVASCULAR RISK <40 mg/dl - HIGH CARDIOVASCULAR RISK Normal [facility] Comment on above: Performed By: #### T CAITLIN, LIPID, CMP ####[facility] [address] [address]Dr. Helio Cee LDL CALC NORMAL SEE BELOW Normal [facility] Comment on above: Result Comment: <100 mg/dl OPTIMAL 100 - 129 mg/dl NEAR OR ABOVE OPTIMAL 130 - 159 mg/dl BORDERLINE HIGH 160 - 189 mg/dl HIGH >190 mg/dl VERY HIGH Performed By: #### T CAITLIN, LIPID, CMP ####[facility] [address] [address]Dr. Helio Cee Triglyceride [Mass/Vol] 82 mg/dL Normal <=150 [facility] Comment on above: Performed By: #### T CAITLIN, LIPID, CMP ####[facility] [address] [address]Dr. Helio Cee VLDL CALC 16.4 mg/dL Normal [facility] Comment on above: Performed By: #### T CAITLIN, LIPID, CMP ####[facility] [address] [address]Dr. Helio Cee PROF 14(COMP METB)on 022 Albumin [Mass/Vol] 3.5 g/dL Normal 3.4-5.0 [facility] Comment on above: Performed By: #### T CAITLIN, LIPID, CMP ####[facility] [address] [address]Dr. Helio Cee Albumin/Globulin [Mass ratio] 1.0 {ratio} Normal [facility] Comment on above: Performed By: #### T CAITLIN, LIPID, CMP ####[facility] [address] [address]Dr. Helio Cee ALP [Catalytic activity/Vol] 98 U/L Normal 46-116 [facility] Comment on above: Performed By: #### T CAITLIN, LIPID, CMP ####[facility] [address] [place] [address]Dr. Helio Cee ALT [Catalytic activity/Vol] 23 U/L Normal 14-59 [facility] Comment on above: Performed By: #### T CAITLIN, LIPID, CMP ####[facility] [address] [phone]. Helio Cee Anion gap [Moles/Vol] 12.2 mmol/L Normal [facility] Comment on above: Performed By: #### T SH, LIPID, CMP ####[facility] [address] [id number]. Helio Cee AST [Catalytic activity/Vol] 15 U/L Normal 15-37 [facility] Comment on above: Performed By: #### T SH, LIPID, CMP ####[facility] [address] [address]Dr. Helio Cee Bilirubin [Mass/Vol] 0.5 mg/dL Normal 0.2-1.0 [facility] Comment on above: Performed By: #### T SH, LIPID, CMP ####[facility] [address] [address]Dr. Helio Cee Calcium [Mass/Vol] 9.0 mg/dL Normal 8.5-10.1 [facility] Comment on above: Performed By: #### T SH, LIPID, CMP ####[facility] [address] [place], [place] [address]Dr. Helio Cee Chloride [Moles/Vol] 109 mmol/L Critically high 98-107 [facility] Comment on above: Performed By: #### T SH, LIPID, CMP ####[facility] [address] [place] [address]Dr. Helio Cee CO2 [Moles/Vol] 26.5 mmol/L Normal 21.0-32.0 [facility] Comment on above: Performed By: #### T SH, LIPID, CMP ####[facility] [address] [address]Dr. Helio Cee Creatinine [Mass/Vol] 1.22 mg/dL Critically high 0.55-1.02 [facility] Comment on above: Performed By: #### T SH, LIPID, CMP ####[facility] [address] [address]Dr. Helio Cee EGFR-AF SYRIAN 52 mL/min/1.73m2 Critically low >=60 [facility] Comment on above: Performed By: #### T SH, LIPID, CMP ####[facility] [address] [address]Dr. Helio Cee EGFR-NON AF SYRIAN 43 mL/min/1.73m2 Critically low >=60 [facility] Comment on above: Performed By: #### T SH, LIPID, CMP ####[facility] [address] [place], [place] [address]Dr. Helio Cee Globulin (S) [Mass/Vol] 3.4 g/dL Normal [facility] Comment on above: Performed By: #### T CAITLIN, LIPID, CMP ####[facility] [address] [place], [place] [address]Dr. Helio Cee Glucose [Mass/Vol] 103 mg/dL Normal 74-106 [facility] Comment on above: Performed By: #### T CAITLIN, LIPID, CMP ####[facility] [address] [place], [place] [address]Dr. Helio Cee Potassium [Moles/Vol] 4.7 mmol/L Normal 3.5-5.1 [facility] Comment on above: Performed By: #### T CAITLIN, LIPID, CMP ####[facility] [address] [place], [place] [address]Dr. Helio Cee Protein [Mass/Vol] 6.9 g/dL Normal 6.4-8.2 [facility] Comment on above: Performed By: #### T SH, LIPID, CMP ####[facility] [address] [place], [place] [address]Dr. Hleio Cee Sodium [Moles/Vol] 143 mmol/L Normal 136-145 [facility] Comment on above: Performed By: #### T CAITLIN, LIPID, CMP ####[facility] [address] [place], [place] [address]Dr. Helio Cee Urea nitrogen [Mass/Vol] 22.0 mg/dL Critically high 7.0-18.0 [facility] Comment on above: Performed By: #### T SH, LIPID, CMP ####[facility] [address] [place] [address]Dr. Helio Cee Urea nitrogen/Creatinine [Mass ratio] 18.0 mg/mg Normal [facility] Comment on above: Performed By: #### T SH, LIPID, CMP ####[facility] [address] [address]Dr. Helio Cee TSHon 04-21-2022 TSH 0.592 uIU/mL Normal 0.358-3.740 [facility] Comment on above: Performed By: #### T SH, LIPID, CMP ####[facility] [address] [place], [place] [address]Dr. Helio Cee UA RANDOM W/MICROSCOPICon BACTERIA NONE SEEN Normal NONE SEEN [facility] Comment on above: Performed By: #### U AMIC ####[facility] [address] [place], [place] [address]Dr. Helio Cee Bilirubin Ql (U) Negative Normal NEGATIVE [facility] Comment on above: Performed By: #### U AMIC ####[facility] [address] [place], [place] [address]Dr. Helio Cee CAST NONE SEEN Normal NONE SEEN [facility] Comment on above: Performed By: #### U AMIC ####[facility] [address] [place] [address]Dr. Helio Cee Clarity (U) CLEAR Normal CLEAR [facility] Comment on above: Performed By: #### U AMIC ####[facility] [address] [place], [place] [address]Dr. Helio Cee Color (U) DK. YELLOW Normal YELLOW [facility] Comment on above: Performed By: #### U AMIC ####[facility] [address] [place], [place] [address]Dr. Helio Cee Crystals LM Nom (Urine sed) NONE SEEN Normal NONE SEEN [facility] Comment on above: Performed By: #### U AMIC ####[facility] [address] [place], [place] [address]Dr. Helio Cee Epithelial cells LM Ql (Urine sed) RARE Normal NONE SEEN /RARE [facility] Comment on above: Performed By: #### U AMIC ####[facility] [address] [place] [address]Dr. Claudettemagan Cee Glucose Ql (U) Negative Normal NEGATIVE The [facility] Comment on above: Performed By: #### U AMIC ####[facility] [address] [place] [address]Dr. Helio Ece Hemoglobin Ql (U) Negative Normal NEGATIVE The [facility] Comment on above: Performed By: #### U AMIC ####[facility] [address] [address]Dr. Helio Cee Ketones Ql (U) Negative Normal NEGATIVE [facility] Comment on above: Performed By: #### U AMIC ####[facility] [address] [place], [place] [address]Dr. Helio Cee LEUKOCYTES Negative Normal NEGATIVE [facility] Comment on above: Performed By: #### U AMIC ####[facility] [address] [place], [place] [address]Dr. Helio Cee MUCOUS TRACE Abnormal NONE SEEN [facility] Comment on above: Performed By: #### U AMIC ####[facility] [address] [place], [place] [address]Dr. Claudettemagan Coleman Nitrite Ql (U) Negative Normal NEGATIVE [facility] Comment on above: Performed By: #### U AMIC ####[facility] [address] [place], [place] [address]Dr. Helio Cee pH (U) 5.5 [pH] Normal 5-9 [facility] Comment on above: Performed By: #### U AMIC ####[facility] [address] [place], [place] [address]Dr. Helio Cee RBC 0-2 Normal 0-2 [facility] Comment on above: Performed By: #### U AMIC ####[facility] [address] [place] [address]Dr. Helio Cee SPEC GRAVITY >=1.030 Abnormal 1.005-<=1.02 5 [facility] Comment on above: Performed By: #### U AMIC ####[facility] [address] [place], [place] [address]Ly. Helio Cee UA PROTEIN TRACE Normal NEGATIVE/ TRACE [facility] Comment on above: Performed By: #### U AMIC ####[facility] [address] [place], [place] [address]Vj. Helio Cee Urobilinogen Qn (U) 1.0 {Nevaeh'U}/dL Normal 0.2 - 1. 0 [facility] Comment on above: Performed By: #### U AMIC ####[facility] [address] [place], [place] [address]Ak. Helio Cee WBC NONE SEEN Normal NONE SEEN [facility] Comment on above: Performed By: #### U AMIC ####[facility] [address] [place], [place] [address]Th. Helio Cee CT CHEST WO CONon 02-22-2022 [...] EHSAN MILLER Date: 2022-02-22 16:51 Normal [facility] HEMOGLOBINon 02-22-2022 Hemoglobin (Bld) [Mass/Vol] 13.6 g/dL Normal 12.0-16.0 [facility] Comment on above: Performed By: #### V [id number] #### [facility] [address] [place] [address] Dr. Helio Cee XR TIB_FIB RT 2Von [...] BRENT LONG Date: 2022-01-07 21:52 Normal [facility] BNPon 11-22-2021 Natriuretic peptide B (Bld) [Mass/Vol] 1469.0 pg/mL Critically high <=900.0 [facility] Comment on above: Performed By: #### C VDTBH #### [facility] [address] [place] [address] Dr. Helio Cee CBC AUTO DIFFon 11-22-2021 BASO # 0.1 103/ul Normal 0.0-0.1 [facility] Comment on above: Performed By: #### E RUR #### [facility] [address] [place] [address] Dr. Helio Cee Basophils/100 WBC (Bld) 0.7 % Normal 0.2-2.0 [facility] Comment on above: Performed By: #### E RUR #### [facility] [address] [place] [address] Dr. Helio Cee EO # 0.2 103/ul Normal 0.0-0.7 [facility] Comment on above: Performed By: #### E RUR #### [facility] [address] [place] [address] Dr. Helio Cee Eosinophils/100 WBC (Bld) 1.9 % Normal 0.9-7.0 [facility] Comment on above: Performed By: #### E RUR #### [facility] [address] [place] [address] Dr. Helio Cee Erythrocyte distribution width (RBC) [Ratio] 14.3 % Normal 11.0-15.0 [facility] Comment on above: Performed By: #### E RUR #### [facility] [address] [place] [address] Dr. Helio Cee Hematocrit (Bld) [Volume fraction] 37.9 % Normal 36.0-48.0 [facility] Comment on above: Performed By: #### E RUR #### [facility] [address] [place] [address] Dr. Helio Cee Hemoglobin (Bld) [Mass/Vol] 12.0 g/dL Normal 12.0-16.0 [facility] Comment on above: Performed By: #### E RUR #### [facility] [address] [place] [address] Dr. Helio Cee IG # 0.10 10e3/ul Critically high 0.00-0.03 [facility] Comment on above: Performed By: #### E RUR #### [facility] [address] [place] [address] Dr. Helio Cee IG % 1.1 % Critically high 0.0-0.5 [facility] Comment on above: Performed By: #### E RUR #### [facility] [address] [place] [address] Dr. Helio Cee LYMPH # 0.9 103/ul Critically low 1.2-3.8 [facility] Comment on above: Performed By: #### E RUR #### [facility] [address] [place] [address] Dr. Helio Cee Lymphocytes/100 WBC (Bld) 10.1 % Critically low 20.5-60.0 [facility] Comment on above: Performed By: #### E RUR #### [facility] [address] [place] [address] Dr. Helio Cee MANUAL DIFF REQ NO Normal [facility] Comment on above: Performed By: #### E RUR #### [facility] [address] [place] [address] Dr. Helio Cee MCH (RBC) [Entitic mass] 29.8 pg Normal 26.7-34.0 [facility] Comment on above: Performed By: #### E RUR #### [facility] [address] [place] [address] Dr. Helio Cee MCHC (RBC) [Mass/Vol] 31.7 g/dL Normal 29.9-35.2 [facility] Comment on above: Performed By: #### E RUR #### [facility] [address] [place] [address] Dr. Helio Cee MCV (RBC) [Entitic vol] 94.0 fL Normal 81.0-99.0 [facility] Comment on above: Performed By: #### E RUR #### [facility] [address] [place] [address] Dr. Helio Cee MONO # 0.7 103/ul Normal 0.3-0.8 [facility] Comment on above: Performed By: #### E RUR #### [facility] [address] [place] [address] Dr. Helio Cee Monocytes/100 WBC (Bld) 7.8 % Normal 1.7-12.0 [facility] Comment on above: Performed By: #### E RUR #### [facility] [address] [place] [address] Dr. Helio Cee NEUT # 7.2 103/ul Critically high 1.4-6.5 [facility] Comment on above: Performed By: #### E RUR #### [facility] [address] [place] [address] Dr. Helio Cee Neutrophils/100 WBC (Bld) 78.4 % Critically high 43.0-75.0 [facility] Comment on above: Performed By: #### E RUR #### [facility] [address] [place] [address] Dr. Helio Cee Platelet mean volume (Bld) [Entitic vol] 10.6 fL Normal 9.5-13.5 [facility] Comment on above: Performed By: #### E RUR #### [facility] [address] [address] [address] Helio Cee PLT 278 103/ul Normal 150-450 [facility] Comment on above: Performed By: #### E RUR #### [facility] [address] [address] [address] Helio Cee RBC 4.03 106/ul Critically low 4.20-5.40 [facility] Comment on above: Performed By: #### E RUR #### [facility] [address] [address] [address] Helio Cee WBC 9.1 103/ul Normal 4.0-11.0 [facility] Comment on above: Performed By: #### E RUR #### [facility] [address] [address] [address] Helio Cee CTA CHEST WO W CONon 11-22-2 022 CTA CHEST WO W CON CT [...] Jay BARAHONA Date: 2021-11-22 16:47 Normal [facility] CULTURE BLOODon 11-22-2021 Microscopic examination of blood, culture Culture Observations: NO GROWTH AT 5 DAYS. Normal [facility] Comment on above: Performed By: #### B [id number] ####[facility] [address] [place], [place] [address]LrDr. Helio Cee Microscopic examination of blood, culture Culture Observations: NO GROWTH AT 5 DAYS. Normal [facility] Comment on above: Performed By: #### B [id number] #### [facility] [address] [place], [place] [address] Dr. Helio Cee [facility]11 SARS-CoV-2 (COVID-19) RNA KIMMY+probe Ql (Unsp spec) Not detected Normal NOT DETECTED [facility] Comment on above: Result Comment: When diagnostic [...] for this test is supported by the [place] of Health and Human Service's declaration that [...] longer be used). Performed By: #### C VDTB #### [facility] [address] [address] [address] Helio Cee LACTATE/LACTIC ACIDon 2021 Lactate [Moles/Vol] mmol/L Critically low 0.4-1.9 [facility] Comment on above: Performed By: #### L ACT ####[facility] [address] [address]Dr. Helio Cee PROF 14(COMP METB)on 022 Albumin [Mass/Vol] 3.1 g/dL Critically low 3.4-5.0 [facility] Comment on above: Performed By: #### V [id number] #### [facility] [address] [place] [address] Dr. Helio Cee Albumin/Globulin [Mass ratio] 0.8 {ratio} Normal [facility] Comment on above: Performed By: #### V [id number] #### [facility] [address] [place] [address] Dr. Helio Cee ALP [Catalytic activity/Vol] 92 U/L Normal 46-116 [facility] Comment on above: Performed By: #### V [id number] #### [facility] [address] [place] [address] Dr. Helio Cee ALT [Catalytic activity/Vol] 23 U/L Normal 14-59 [facility] Comment on above: Performed By: #### V [id number] #### [facility] [address] [place] [address] Dr. Helio Cee Anion gap [Moles/Vol] 12.8 mmol/L Normal [facility] Comment on above: Performed By: #### V [id number] #### [facility] [address] [place] [address] Dr. Heilo Cee AST [Catalytic activity/Vol] 16 U/L Normal 15-37 [facility] Comment on above: Performed By: #### V [id number] #### [facility] [address] [address] [address] Helio Cee Bilirubin [Mass/Vol] 0.6 mg/dL Normal 0.2-1.0 [facility] Comment on above: Performed By: #### V [id number] #### [facility] [address] [address] [address] Helio Cee Calcium [Mass/Vol] 9.5 mg/dL Normal 8.5-10.1 [facility] Comment on above: Performed By: #### V [id number] #### [facility] [address] [place] [address] Dr. Helio Cee Chloride [Moles/Vol] 106 mmol/L Normal 98-107 [facility] Comment on above: Performed By: #### V [id number] #### [facility] [address] [place] [address] Dr. Helio Cee CO2 [Moles/Vol] 25.1 mmol/L Normal 21.0-32.0 [facility] Comment on above: Performed By: #### V [id number] #### [facility] [address] [place] [address] Dr. Helio Cee Creatinine [Mass/Vol] 1.06 mg/dL Critically high 0.55-1.02 [facility] Comment on above: Performed By: #### V [id number] #### [facility] [address] [place] [address] Dr. Helio Cee EGFR-AF SYRIAN >60 Normal >=60 [facility] Comment on above: Performed By: #### V [id number] #### [facility] [address] [place] [address] Dr. Helio Cee EGFR-NON AF SYRIAN 51 mL/min/1.73m2 Critically low >=60 [facility] Comment on above: Performed By: #### V [id number] #### [facility] [address] [place] [address] Dr. Helio Cee Globulin (S) [Mass/Vol] 4.1 g/dL Normal [facility] Comment on above: Performed By: #### V [id number] #### [facility] [address] [place] [address] Dr. Helio Cee Glucose [Mass/Vol] 99 mg/dL Normal 74-106 [facility] Comment on above: Performed By: #### V [id number] #### [facility] [address] [place] [address] Dr. Helio Cee Potassium [Moles/Vol] 3.9 mmol/L Normal 3.5-5.1 [facility] Comment on above: Performed By: #### V [id number] #### [facility] [address] [place] [address] Dr. Helio Cee Protein [Mass/Vol] 7.2 g/dL Normal 6.4-8.2 [facility] Comment on above: Performed By: #### V [id number] #### [facility] [address] [place] [address] Dr. Helio Cee Sodium [Moles/Vol] 140 mmol/L Normal 136-145 [facility] Comment on above: Performed By: #### V [id number] #### [facility] [address] [place] [address] Dr. Helio Cee Urea nitrogen [Mass/Vol] 15.0 mg/dL Normal 7.0-18.0 [facility] Comment on above: Performed By: #### V [id number] #### [facility] [address] [place] [address] Dr. Helio Cee Urea nitrogen/Creatinine [Mass ratio] 14.2 mg/mg Normal [facility] Comment on above: Performed By: #### V [id number] #### [facility] [address] [place] [address] Dr. Helio Cee TROPONIN, HIGH SENSITIVITYon 11-22-2021 HSTROP 11.6 pg/mL Normal 4.0-51.3 [facility] Comment on above: Result Comment: CUT- OFF POINTS HAVE BEEN ESTABLISHED BASED ON THE FOURTH UNIVERSAL DEFINITIONS OF MYOCARDIAL INFARCTION. THE UPPER REFERENCE LIMIT (URL) OF TROPONIN, DEFINED THE 99TH PERCENTILE OF cTnI DISTRIBUTION IN A REFERENCE POPULATION, HAS BEEN CONFIRMED THE DECISION THRESHOLD FOR AL DIAGNOSIS. Performed By: #### V [id number] #### [facility] [address] [place] [address] Dr. Helio Cee XR CHEST 2 Von [...] by: ISAC CONNOR Date: 2021-11-22 14:20 Normal [facility] BNPon 11-21-2021 Natriuretic peptide B (Bld) [Mass/Vol] 953.0 pg/mL Critically high <=900.0 [facility] Comment on above: Performed By: #### E RUR #### [facility] [address] [place] [address] Dr. Helio Cee CBC AUTO DIFFon 11-21-2021 BASO # 0.0 103/ul Normal 0.0-0.1 [facility] Comment on above: Performed By: #### E RUR #### [facility] [address] [place] [address] Dr. Helio Cee Basophils/100 WBC (Bld) 0.4 % Normal 0.2-2.0 [facility] Comment on above: Performed By: #### E RUR #### [facility] [address] [place] [address] Dr. Helio Cee EO # 0.1 103/ul Normal 0.0-0.7 [facility] Comment on above: Performed By: #### E RUR #### [facility] [address] [place] [address] Dr. Helio Cee Eosinophils/100 WBC (Bld) 1.1 % Normal 0.9-7.0 [facility] Comment on above: Performed By: #### E RUR #### [facility] [address] [place] [address] Dr. Helio Cee Erythrocyte distribution width (RBC) [Ratio] 14.6 % Normal 11.0-15.0 [facility] Comment on above: Performed By: #### E RUR #### [facility] [address] [place] [address] Dr. Helio Cee Hematocrit (Bld) [Volume fraction] 35.2 % Critically low 36.0-48.0 [facility] Comment on above: Performed By: #### E RUR #### [facility] [address] [place] [address] Dr. Helio Cee Hemoglobin (Bld) [Mass/Vol] 10.9 g/dL Critically low 12.0-16.0 [facility] Comment on above: Performed By: #### E RUR #### [facility] [address] [place] [address] Dr. Helio Cee IG # 0.07 10e3/ul Critically high 0.00-0.03 [facility] Comment on above: Performed By: #### E RUR #### [facility] [address] [place] [address] Dr. Helio Cee IG % 0.7 % Critically high 0.0-0.5 [facility] Comment on above: Performed By: #### E RUR #### [facility] [address] [place] [address] Dr. Helio Cee LYMPH # 1.4 103/ul Normal 1.2-3.8 [facility] Comment on above: Performed By: #### E RUR #### [facility] [address] [place] [address] Dr. Helio Cee Lymphocytes/100 WBC (Bld) 13.3 % Critically low 20.5-60.0 [facility] Comment on above: Performed By: #### E RUR #### [facility] [address] [place] [address] Dr. Helio Cee MANUAL DIFF REQ NO Normal [facility] Comment on above: Performed By: #### E RUR #### [facility] [address] [place] [address] Dr. Helio Cee MCH (RBC) [Entitic mass] 29.5 pg Normal 26.7-34.0 [facility] Comment on above: Performed By: #### E RUR #### [facility] [address] [place] [address] Dr. Helio Cee MCHC (RBC) [Mass/Vol] 31.0 g/dL Normal 29.9-35.2 [facility] Comment on above: Performed By: #### E RUR #### [facility] [address] [place] [address] Dr. Helio Cee MCV (RBC) [Entitic vol] 95.4 fL Normal 81.0-99.0 [facility] Comment on above: Performed By: #### E RUR #### [facility] [address] [place] [address] Dr. Helio Cee MONO # 0.8 103/ul Normal 0.3-0.8 [facility] Comment on above: Performed By: #### E RUR #### [facility] [address] [place] [address] Dr. Helio Cee Monocytes/100 WBC (Bld) 7.3 % Normal 1.7-12.0 [facility] Comment on above: Performed By: #### E RUR #### [facility] [address] [place] [address] Dr. Helio Cee NEUT # 7.9 103/ul Critically high 1.4-6.5 [facility] Comment on above: Performed By: #### E RUR #### [facility] [address] [place] [address] Dr. Helio Cee Neutrophils/100 WBC (Bld) 77.2 % Critically high 43.0-75.0 [facility] Comment on above: Performed By: #### E RUR #### [facility] [address] [place] [address] Dr. Helio Cee Platelet mean volume (Bld) [Entitic vol] 11.1 fL Normal 9.5-13.5 [facility] Comment on above: Performed By: #### E RUR #### [facility] [address] [place] [address] Dr. Helio Cee PLT 245 103/ul Normal 150-450 [facility] Comment on above: Performed By: #### E RUR #### [facility] [address] [place] [address] Dr. Helio Cee RBC 3.69 106/ul Critically low 4.20-5.40 [facility] Comment on above: Performed By: #### E RUR #### [facility] [address] [place] [address] Dr. Helio Cee WBC 10.2 103/ul Normal 4.0-11.0 [facility] Comment on above: Performed By: #### E RUR #### [facility] [address] [place] [address] Dr. Helio Cee PROF 14(COMP METB)on 022 Albumin [Mass/Vol] 2.6 g/dL Critically low 3.4-5.0 [facility] Comment on above: Performed By: #### V [id number] #### [facility] [address] [place] [address] Dr. Helio Cee Albumin/Globulin [Mass ratio] 0.7 {ratio} Normal [facility] Comment on above: Performed By: #### V [id number] #### [facility] [address] [place] [address] Dr. Helio Cee ALP [Catalytic activity/Vol] 75 U/L Normal 46-116 [facility] Comment on above: Performed By: #### V [id number] #### [facility] [address] [place] [address] Dr. Helio Cee ALT [Catalytic activity/Vol] 19 U/L Normal 14-59 [facility] Comment on above: Performed By: #### V [id number] #### [facility] [address] [place] [address] Dr. Helio Cee Anion gap [Moles/Vol] 11.7 mmol/L Normal [facility] Comment on above: Performed By: #### V [id number] #### [facility] [address] [address] [address] Helio Cee AST [Catalytic activity/Vol] 8 U/L Critically low 15-37 [facility] Comment on above: Performed By: #### V [id number] #### [facility] [address] [address] [address] Helio Cee Bilirubin [Mass/Vol] 0.3 mg/dL Normal 0.2-1.0 [facility] Comment on above: Performed By: #### V [id number] #### [facility] [address] [address] [address] Helio Cee Calcium [Mass/Vol] 9.0 mg/dL Normal 8.5-10.1 [facility] Comment on above: Performed By: #### V [id number] #### [facility] [address] [address] [address] Helio Cee Chloride [Moles/Vol] 107 mmol/L Normal 98-107 [facility] Comment on above: Performed By: #### V [id number] #### [facility] [address] [place] [address] Dr. Helio Cee CO2 [Moles/Vol] 24.7 mmol/L Normal 21.0-32.0 [facility] Comment on above: Performed By: #### V [id number] #### [facility] [address] [address] [address] Helio Cee Creatinine [Mass/Vol] 0.91 mg/dL Normal 0.55-1.02 [facility] Comment on above: Performed By: #### V [id number] #### [facility] [address] [address] [address] Helio Cee EGFR-AF SYRIAN >60 Normal >=60 [facility] Comment on above: Performed By: #### V [id number] #### [facility] [address] [place] [address] Dr. Helio Cee EGFR-NON AF SYRIAN 60 mL/min/1.73m2 Normal >=60 [facility] Comment on above: Performed By: #### V [id number] #### [facility] [address] [address] [address] Helio Cee Globulin (S) [Mass/Vol] 3.9 g/dL Normal [facility] Comment on above: Performed By: #### V [id number] #### [facility] [address] [address] [address] Helio Cee Glucose [Mass/Vol] 131 mg/dL Critically high 74-106 [facility] Comment on above: Performed By: #### V [id number] #### [facility] [address] [address] [address] Helio Cee Potassium [Moles/Vol] 3.4 mmol/L Critically low 3.5-5.1 [facility] Comment on above: Performed By: #### V [id number] #### [facility] [address] [place] [address] Dr. Helio Cee Protein [Mass/Vol] 6.5 g/dL Normal 6.4-8.2 [facility] Comment on above: Performed By: #### V [id number] #### [facility] [address] [address] [address] Helio Cee Sodium [Moles/Vol] 140 mmol/L Normal 136-145 [facility] Comment on above: Performed By: #### V [id number] #### [facility] [address] [address] [address] Helio Cee Urea nitrogen [Mass/Vol] 14.0 mg/dL Normal 7.0-18.0 [facility] Comment on above: Performed By: #### V [id number] #### [facility] [address] [address] [address] Helio Cee Urea nitrogen/Creatinine [Mass ratio] 15.4 mg/mg Normal [facility] Comment on above: Performed By: #### V [id number] #### [facility] [address] [place] [address] Dr. Helio Cee BNPon 11-20-2021 Natriuretic peptide B (Bld) [Mass/Vol] 781.0 pg/mL Normal <=900.0 [facility] Comment on above: Performed By: #### E RUR #### [facility] [address] [place] [address] Dr. Helio Cee CBC AUTO DIFFon 11-20-2021 BASO # 0.0 103/ul Normal 0.0-0.1 [facility] Comment on above: Performed By: #### V [id number] #### [facility] [address] [place] [address] Dr. Helio Cee Basophils/100 WBC (Bld) 0.3 % Normal 0.2-2.0 [facility] Comment on above: Performed By: #### V [id number] #### [facility] [address] [place] [address] Dr. Helio Cee EO # 0.1 103/ul Normal 0.0-0.7 [facility] Comment on above: Performed By: #### V [id number] #### [facility] [address] [place] [address] Dr. Helio Cee Eosinophils/100 WBC (Bld) 0.5 % Critically low 0.9-7.0 [facility] Comment on above: Performed By: #### V [id number] #### [facility] [address] [place] [address] Dr. Helio Cee Erythrocyte distribution width (RBC) [Ratio] 14.5 % Normal 11.0-15.0 [facility] Comment on above: Performed By: #### V [id number] #### [facility] [address] [place] [address] Dr. Helio Cee Hematocrit (Bld) [Volume fraction] 36.6 % Normal 36.0-48.0 [facility] Comment on above: Performed By: #### V [id number] #### [facility] [address] [place] [address] Dr. Helio Cee Hemoglobin (Bld) [Mass/Vol] 11.5 g/dL Critically low 12.0-16.0 [facility] Comment on above: Performed By: #### V [id number] #### [facility] [address] [address] [address] Helio Cee IG # 0.07 10e3/ul Critically high 0.00-0.03 [facility] Comment on above: Performed By: #### V [id number] #### [facility] [address] [place] [address] Dr. Helio Cee IG % 0.5 % Normal 0.0-0.5 [facility] Comment on above: Performed By: #### V [id number] #### [facility] [address] [place] [address] Dr. Helio Cee LYMPH # 1.2 103/ul Normal 1.2-3.8 [facility] Comment on above: Performed By: #### V [id number] #### [facility] [address] [place] [address] Dr. Helio Cee Lymphocytes/100 WBC (Bld) 9.5 % Critically low 20.5-60.0 [facility] Comment on above: Performed By: #### V [id number] #### [facility] [address] [place] [address] Dr. Helio Cee MANUAL DIFF REQ NO Normal [facility] Comment on above: Performed By: #### V [id number] #### [facility] [address] [place] [address] Dr. Helio Cee MCH (RBC) [Entitic mass] 30.2 pg Normal 26.7-34.0 [facility] Comment on above: Performed By: #### V [id number] #### [facility] [address] [place] [address] Dr. Helio Cee MCHC (RBC) [Mass/Vol] 31.4 g/dL Normal 29.9-35.2 [facility] Comment on above: Performed By: #### V [id number] #### [facility] [address] [place] [address] Dr. Helio Cee MCV (RBC) [Entitic vol] 96.1 fL Normal 81.0-99.0 [facility] Comment on above: Performed By: #### V [id number] #### [facility] [address] [address] [address] Helio Cee MONO # 0.7 103/ul Normal 0.3-0.8 [facility] Comment on above: Performed By: #### V [id number] #### [facility] [address] [place] [address] Dr. Helio Cee Monocytes/100 WBC (Bld) 5.7 % Normal 1.7-12.0 [facility] Comment on above: Performed By: #### V [id number] #### [facility] [address] [place] [address] Dr. Helio Cee NEUT # 10.8 103/ul Critically high 1.4-6.5 [facility] Comment on above: Performed By: #### V [id number] #### [facility] [address] [place] [address] Dr. Helio Cee Neutrophils/100 WBC (Bld) 83.5 % Critically high 43.0-75.0 [facility] Comment on above: Performed By: #### V [id number] #### [facility] [address] [place] [address] Dr. Helio Cee Platelet mean volume (Bld) [Entitic vol] 11.1 fL Normal 9.5-13.5 [facility] Comment on above: Performed By: #### V [id number] #### [facility] [address] [place] [address] Dr. Helio Cee PLT 231 103/ul Normal 150-450 [facility] Comment on above: Performed By: #### V [id number] #### [facility] [address] [place] [address] Dr. Helio Cee RBC 3.81 106/ul Critically low 4.20-5.40 [facility] Comment on above: Performed By: #### V [id number] #### [facility] [address] [place] [address] Dr. Helio Cee WBC 13.0 103/ul Critically high 4.0-11.0 [facility] Comment on above: Performed By: #### V [id number] #### [facility] [address] [place] [address] Dr. Helio Cee PROF 14(COMP METB)on 022 Albumin [Mass/Vol] 2.9 g/dL Critically low 3.4-5.0 [facility] Comment on above: Performed By: #### E RUR #### [facility] [address] [place] [address] Dr. Helio Cee Albumin/Globulin [Mass ratio] 0.8 {ratio} Normal [facility] Comment on above: Performed By: #### E RUR #### [facility] [address] [place] [address] Dr. Helio Cee ALP [Catalytic activity/Vol] 81 U/L Normal 46-116 [facility] Comment on above: Performed By: #### E RUR #### [facility] [address] [place] [address] Dr. Helio Cee ALT [Catalytic activity/Vol] 21 U/L Normal 14-59 [facility] Comment on above: Performed By: #### E RUR #### [facility] [address] [place] [address] Dr. Helio Cee Anion gap [Moles/Vol] 12.4 mmol/L Normal [facility] Comment on above: Performed By: #### E RUR #### [facility] [address] [place] [address] Dr. Helio Cee AST [Catalytic activity/Vol] 11 U/L Critically low 15-37 [facility] Comment on above: Performed By: #### E RUR #### [facility] [address] [place] [address] Dr. Helio Cee Bilirubin [Mass/Vol] 0.4 mg/dL Normal 0.2-1.0 [facility] Comment on above: Performed By: #### E RUR #### [facility] [address] [place] [address] Dr. Helio Cee Calcium [Mass/Vol] 8.7 mg/dL Normal 8.5-10.1 [facility] Comment on above: Performed By: #### E RUR #### [facility] [address] [place] [address] Dr. Helio Cee Chloride [Moles/Vol] 108 mmol/L Critically high 98-107 [facility] Comment on above: Performed By: #### E RUR #### [facility] [address] [address] [address] Helio Cee CO2 [Moles/Vol] 24.2 mmol/L Normal 21.0-32.0 [facility] Comment on above: Performed By: #### E RUR #### [facility] [address] [address] [address] Helio Cee Creatinine [Mass/Vol] 1.03 mg/dL Critically high 0.55-1.02 [facility] Comment on above: Performed By: #### E RUR #### [facility] [address] [place] [address] Dr. Helio Cee EGFR-AF SYRIAN >60 Normal >=60 [facility] Comment on above: Performed By: #### E RUR #### [facility] [address] [address] [address] Helio Cee EGFR-NON AF SYRIAN 52 mL/min/1.73m2 Critically low >=60 [facility] Comment on above: Performed By: #### E RUR #### [facility] [address] [place] [address] Dr. Helio Cee Globulin (S) [Mass/Vol] 3.5 g/dL Normal [facility] Comment on above: Performed By: #### E RUR #### [facility] [address] [address] [address] Helio Cee Glucose [Mass/Vol] 142 mg/dL Critically high 74-106 [facility] Comment on above: Performed By: #### E RUR #### [facility] [address] [address] [address] Helio Cee Potassium [Moles/Vol] 3.6 mmol/L Normal 3.5-5.1 [facility] Comment on above: Performed By: #### E RUR #### [facility] [address] [address] [address] Helio Cee Protein [Mass/Vol] 6.4 g/dL Normal 6.4-8.2 [facility] Comment on above: Performed By: #### E RUR #### [facility] [address] [address] [address] Helio Cee Sodium [Moles/Vol] 141 mmol/L Normal 136-145 [facility] Comment on above: Performed By: #### E RUR #### [facility] [address] [address] [address] Helio Cee Urea nitrogen [Mass/Vol] 19.0 mg/dL Critically high 7.0-18.0 [facility] Comment on above: Performed By: #### E RUR #### [facility] [address] [place] [address] Dr. Helio Cee Urea nitrogen/Creatinine [Mass ratio] 18.4 mg/mg Normal [facility] Comment on above: Performed By: #### E RUR #### [facility] [address] [place] [address] Dr. Helio Cee XR CHEST 2 Von [...] EUN BARRY Date: 2021-11-20 07:56 Normal [facility] BNPon 11-19-2021 Natriuretic peptide B (Bld) [Mass/Vol] 777.0 pg/mL Normal <=900.0 [facility] Comment on above: Performed By: #### E RUR #### [facility] [address] [place] [address] Dr. Helio Cee CBC AUTO DIFFon 11-19-2021 BASO # 0.0 103/ul Normal 0.0-0.1 [facility] Comment on above: Performed By: #### V [id number] #### [facility] [address] [address] [address] Helio Cee Basophils/100 WBC (Bld) 0.2 % Normal 0.2-2.0 [facility] Comment on above: Performed By: #### V [id number] #### [facility] [address] [place] [address] Dr. Helio Cee EO # 0.1 103/ul Normal 0.0-0.7 [facility] Comment on above: Performed By: #### V [id number] #### [facility] [address] [place] [address] Dr. Helio Cee Eosinophils/100 WBC (Bld) 0.5 % Critically low 0.9-7.0 [facility] Comment on above: Performed By: #### V [id number] #### [facility] [address] [place] [address] Dr. Helio Cee Erythrocyte distribution width (RBC) [Ratio] 14.6 % Normal 11.0-15.0 [facility] Comment on above: Performed By: #### V [id number] #### [facility] [address] [place] [address] Dr. Helio Cee Hematocrit (Bld) [Volume fraction] 37.4 % Normal 36.0-48.0 [facility] Comment on above: Performed By: #### V [id number] #### [facility] [address] [place] [address] Dr. Helio Cee Hemoglobin (Bld) [Mass/Vol] 11.5 g/dL Critically low 12.0-16.0 [facility] Comment on above: Performed By: #### V [id number] #### [facility] [address] [place] [address] Dr. Helio Cee IG # 0.07 10e3/ul Critically high 0.00-0.03 [facility] Comment on above: Performed By: #### V [id number] #### [facility] [address] [place] [address] Dr. Helio Cee IG % 0.5 % Normal 0.0-0.5 [facility] Comment on above: Performed By: #### V [id number] #### [facility] [address] [place] [address] Dr. Helio Cee LYMPH # 1.1 103/ul Critically low 1.2-3.8 [facility] Comment on above: Performed By: #### V [id number] #### [facility] [address] [place] [address] Dr. Helio Cee Lymphocytes/100 WBC (Bld) 6.8 % Critically low 20.5-60.0 [facility] Comment on above: Performed By: #### V [id number] #### [facility] [address] [place] [address] Dr. Helio Cee MANUAL DIFF REQ NO Normal [facility] Comment on above: Performed By: #### V [id number] #### [facility] [address] [place] [address] Dr. Helio Cee MCH (RBC) [Entitic mass] 30.1 pg Normal 26.7-34.0 [facility] Comment on above: Performed By: #### V [id number] #### [facility] [address] [place] [address] Dr. Helio Cee MCHC (RBC) [Mass/Vol] 30.7 g/dL Normal 29.9-35.2 [facility] Comment on above: Performed By: #### V [id number] #### [facility] [address] [place] [address] Dr. Helio Cee MCV (RBC) [Entitic vol] 97.9 fL Normal 81.0-99.0 [facility] Comment on above: Performed By: #### V [id number] #### [facility] [address] [place] [address] Dr. Helio Cee MONO # 0.8 103/ul Normal 0.3-0.8 [facility] Comment on above: Performed By: #### V [id number] #### [facility] [address] [place] [address] Dr. Helio Cee Monocytes/100 WBC (Bld) 5.3 % Normal 1.7-12.0 [facility] Comment on above: Performed By: #### V [id number] #### [facility] [address] [place] [address] Dr. Helio Cee NEUT # 13.3 103/ul Critically high 1.4-6.5 [facility] Comment on above: Performed By: #### V [id number] #### [facility] [address] [place] [address] Dr. Helio Cee Neutrophils/100 WBC (Bld) 86.7 % Critically high 43.0-75.0 [facility] Comment on above: Performed By: #### V [id number] #### [facility] [address] [place] [address] Dr. Helio Cee Platelet mean volume (Bld) [Entitic vol] 11.4 fL Normal 9.5-13.5 [facility] Comment on above: Performed By: #### V [id number] #### [facility] [address] [place] [address] Dr. Helio Cee PLT 215 103/ul Normal 150-450 [facility] Comment on above: Performed By: #### V [id number] #### [facility] [address] [place] [address] Dr. Helio Cee RBC 3.82 106/ul Critically low 4.20-5.40 [facility] Comment on above: Performed By: #### V [id number] #### [facility] [address] [place] [address] Dr. Helio Cee WBC 15.3 103/ul Critically high 4.0-11.0 [facility] Comment on above: Performed By: #### V [id number] #### [facility] [address] [place] [address] Dr. Helio Cee PROF 14(COMP METB)on 022 Albumin [Mass/Vol] 2.8 g/dL Critically low 3.4-5.0 [facility] Comment on above: Performed By: #### E RUR #### [facility] [address] [place] [address] Dr. Helio Cee Albumin/Globulin [Mass ratio] 0.8 {ratio} Normal [facility] Comment on above: Performed By: #### E RUR #### [facility] [address] [place] [address] Dr. Helio Cee ALP [Catalytic activity/Vol] 74 U/L Normal 46-116 [facility] Comment on above: Performed By: #### E RUR #### [facility] [address] [place] [address] Dr. Helio Cee ALT [Catalytic activity/Vol] 21 U/L Normal 14-59 [facility] Comment on above: Performed By: #### E RUR #### [facility] [address] [place] [address] Dr. Helio Cee Anion gap [Moles/Vol] 13.5 mmol/L Normal [facility] Comment on above: Performed By: #### E RUR #### [facility] [address] [place] [address] Dr. Helio Cee AST [Catalytic activity/Vol] 11 U/L Critically low 15-37 [facility] Comment on above: Performed By: #### E RUR #### [facility] [address] [place] [address] Dr. Helio Cee Bilirubin [Mass/Vol] 0.5 mg/dL Normal 0.2-1.0 [facility] Comment on above: Performed By: #### E RUR #### [facility] [address] [place] [address] Dr. Helio Cee Calcium [Mass/Vol] 8.4 mg/dL Critically low 8.5-10.1 [facility] Comment on above: Performed By: #### E RUR #### [facility] [address] [place] [address] Dr. Helio Cee Chloride [Moles/Vol] 107 mmol/L Normal 98-107 [facility] Comment on above: Performed By: #### E RUR #### [facility] [address] [place] [address] Dr. Helio Cee CO2 [Moles/Vol] 21.0 mmol/L Normal 21.0-32.0 [facility] Comment on above: Performed By: #### E RUR #### [facility] [address] [address] [address] Helio Cee Creatinine [Mass/Vol] 1.07 mg/dL Critically high 0.55-1.02 [facility] Comment on above: Performed By: #### E RUR #### [facility] [address] [address] [address] Helio Cee EGFR-AF SYRIAN >60 Normal >=60 [facility] Comment on above: Performed By: #### E RUR #### [facility] [address] [address] [address] Helio Cee EGFR-NON AF SYRIAN 50 mL/min/1.73m2 Critically low >=60 [facility] Comment on above: Performed By: #### E RUR #### [facility] [address] [address] [address] Helio Cee Globulin (S) [Mass/Vol] 3.4 g/dL Normal [facility] Comment on above: Performed By: #### E RUR #### [facility] [address] [address] [address] Helio Cee Glucose [Mass/Vol] 109 mg/dL Critically high 74-106 [facility] Comment on above: Performed By: #### E RUR #### [facility] [address] [address] [address] Helio Cee Potassium [Moles/Vol] 3.5 mmol/L Normal 3.5-5.1 [facility] Comment on above: Performed By: #### E RUR #### [facility] [address] [address] [address] Helio Cee Protein [Mass/Vol] 6.2 g/dL Critically low 6.4-8.2 [facility] Comment on above: Performed By: #### E RUR #### [facility] [address] [address] [address] Helio Cee Sodium [Moles/Vol] 138 mmol/L Normal 136-145 [facility] Comment on above: Performed By: #### E RUR #### [facility] [address] [address] [address] Helio Cee Urea nitrogen [Mass/Vol] 25.0 mg/dL Critically high 7.0-18.0 [facility] Comment on above: Performed By: #### E RUR #### [facility] [address] [address] [address] Helio Cee Urea nitrogen/Creatinine [Mass ratio] 23.4 mg/mg Normal [facility] Comment on above: Performed By: #### E RUR #### [facility] [address] [address] [address] Helio Cee BNPon 11-18-2021 Natriuretic peptide B (Bld) [Mass/Vol] 386.0 pg/mL Normal <=900.0 [facility] Comment on above: Performed By: #### B FIRE HOSE CURER, HSTROPN, BMP ####[facility] [id number] [address]Dr. Helio Cee CBC AUTO DIFFon 11-18-2021 BASO # 0.0 103/ul Normal 0.0-0.1 [facility] Comment on above: Performed By: #### V [id number] #### [facility] [address] [place] [address] Dr. Helio Cee Basophils/100 WBC (Bld) 0.3 % Normal 0.2-2.0 [facility] Comment on above: Performed By: #### V [id number] #### [facility] [address] [place] [address] Dr. Helio Cee EO # 0.0 103/ul Normal 0.0-0.7 [facility] Comment on above: Performed By: #### V [id number] #### [facility] [address] [place] [address] Dr. Helio Cee Eosinophils/100 WBC (Bld) 0.1 % Critically low 0.9-7.0 [facility] Comment on above: Performed By: #### V [id number] #### [facility] [address] [place] [address] Dr. Helio Cee Erythrocyte distribution width (RBC) [Ratio] 14.4 % Normal 11.0-15.0 [facility] Comment on above: Performed By: #### V [id number] #### [facility] [address] [place] [address] Dr. Helio Cee Hematocrit (Bld) [Volume fraction] 43.6 % Normal 36.0-48.0 [facility] Comment on above: Performed By: #### V [id number] #### [facility] [address] [place] [address] Dr. Helio Cee Hemoglobin (Bld) [Mass/Vol] 13.4 g/dL Normal 12.0-16.0 [facility] Comment on above: Performed By: #### V [id number] #### [facility] [address] [place] [address] Dr. Helio Cee IG # 0.03 10e3/ul Normal 0.00-0.03 [facility] Comment on above: Performed By: #### V [id number] #### [facility] [address] [place] [address] Dr. Helio Cee IG % 0.3 % Normal 0.0-0.5 [facility] Comment on above: Performed By: #### V [id number] #### [facility] [address] [place] [address] Dr. Helio Cee LYMPH # 0.4 103/ul Critically low 1.2-3.8 [facility] Comment on above: Performed By: #### V [id number] #### [facility] [address] [place] [address] Dr. Helio Cee Lymphocytes/100 WBC (Bld) 4.0 % Critically low 20.5-60.0 [facility] Comment on above: Performed By: #### V [id number] #### [facility] [address] [place] [address] Dr. Helio Cee MANUAL DIFF REQ NO Normal [facility] Comment on above: Performed By: #### V [id number] #### [facility] [address] [place] [address] Dr. Helio Cee MCH (RBC) [Entitic mass] 29.6 pg Normal 26.7-34.0 [facility] Comment on above: Performed By: #### V [id number] #### [facility] [address] [place] [address] Dr. Helio Cee MCHC (RBC) [Mass/Vol] 30.7 g/dL Normal 29.9-35.2 [facility] Comment on above: Performed By: #### V [id number] #### [facility] [address] [place] [address] Dr. Helio Cee MCV (RBC) [Entitic vol] 96.5 fL Normal 81.0-99.0 [facility] Comment on above: Performed By: #### V [id number] #### [facility] [address] [place] [address] Dr. Helio Cee MONO # 0.6 103/ul Normal 0.3-0.8 [facility] Comment on above: Performed By: #### V [id number] #### [facility] [address] [place] [address] Dr. Helio Cee Monocytes/100 WBC (Bld) 5.4 % Normal 1.7-12.0 [facility] Comment on above: Performed By: #### V [id number] #### [facility] [address] [place] [address] Dr. Helio Cee NEUT # 9.7 103/ul Critically high 1.4-6.5 [facility] Comment on above: Performed By: #### V [id number] #### [facility] [address] [place] [address] Dr. Helio Cee Neutrophils/100 WBC (Bld) 89.9 % Critically high 43.0-75.0 [facility] Comment on above: Performed By: #### V [id number] #### [facility] [address] [place] [address] Dr. Helio Cee Platelet mean volume (Bld) [Entitic vol] 10.9 fL Normal 9.5-13.5 [facility] Comment on above: Performed By: #### V [id number] #### [facility] [address] [place] [address] Dr. Helio Cee PLT 265 103/ul Normal 150-450 [facility] Comment on above: Performed By: #### V [id number] #### [facility] [address] [place] [address] Dr. Helio Cee RBC 4.52 106/ul Normal 4.20-5.40 [facility] Comment on above: Performed By: #### V [id number] #### [facility] [address] [place] [address] Dr. Helio Cee WBC 10.7 103/ul Normal 4.0-11.0 [facility] Comment on above: Performed By: #### V [id number] #### [facility] [address] [place] [address] Dr. Helio Cee CULTURE BLOODon 11-18-2021 Microscopic examination of blood, culture Culture Observations: NO GROWTH AT 5 DAYS. Normal [facility] Comment on above: Performed By: #### B [id number] #### [facility] [address] [place] [address] Dr. Helio Cee Microscopic examination of blood, culture Culture Observations: NO GROWTH AT 5 DAYS. Normal [facility] Comment on above: Performed By: #### B [id number] #### [facility] [address] [place] [address] Dr. Helio Cee Covid-19 PCR (CVDTB)on SARS-CoV-2 (COVID-19) RNA KIMMY+probe Ql (Unsp spec) Not detected Normal NOT DETECTED [facility] Comment on above: Result Comment: [...] for this test is supported by the [place] of [employer] and Human Service's declaration that [...] used). Performed By: #### E RUR #### [facility] [address] [place] [address] Dr. Helio Cee ER URINE PROFILEon 2 Bilirubin Ql (U) Negative Normal NEGATIVE [facility] Comment on above: Performed By: #### E RUR #### [facility] [address] [place] [address] Dr. Helio Cee Clarity (U) CLEAR Normal CLEAR [facility] Comment on above: Performed By: #### E RUR #### [facility] [address] [place] [address] Dr. Helio Cee Color (U) LT. YELLOW Normal YELLOW [facility] Comment on above: Performed By: #### E RUR #### [facility] [address] [place] [address] Dr. Helio Cee ERUAHD A micrscopic examination will be performed if indicated. Normal [facility] Comment on above: Performed By: #### E RUR #### [facility] [address] [place] [address] Dr. Helio Cee Glucose Ql (U) Negative Normal NEGATIVE [facility] Comment on above: Performed By: #### E RUR #### [facility] [address] [place] [address] Dr. Helio Cee Hemoglobin Ql (U) Negative Normal NEGATIVE [facility] Comment on above: Performed By: #### E RUR #### [facility] [address] [place] [address] Dr. Helio Cee Ketones Ql (U) Negative Normal NEGATIVE [facility] Comment on above: Performed By: #### E RUR #### [facility] [address] [place] [address] Dr. Helio Cee LEUKOCYTES Negative Normal NEGATIVE [facility] Comment on above: Performed By: #### E RUR #### [facility] [address] [address] [address] Helio Cee Nitrite Ql (U) Negative Normal NEGATIVE [facility] Comment on above: Performed By: #### E RUR #### [facility] [address] [place] [address] Dr. Helio Cee pH (U) 5.5 [pH] Normal 5-9 [facility] Comment on above: Performed By: #### E RUR #### [facility] [address] [place] [address] Dr. Helio Cee SPEC GRAVITY 1.015 Normal 1.005-<=1.02 5 [facility] Comment on above: Performed By: #### E RUR #### [facility] [address] [place] [address] Dr. Helio Cee UA PROTEIN Negative Normal NEGATIVE/ TRACE [facility] Comment on above: Performed By: #### E RUR #### [facility] [address] [place] [address] Dr. Helio Cee UR MICRO IND NOT INDICATED Normal [facility] Comment on above: Performed By: #### E RUR #### [facility] [address] [place] [address] Dr. Helio Cee Urobilinogen Qn (U) 0.2 {Nevaeh'U}/dL Normal 0.2 - 1. 0 [facility] Comment on above: Performed By: #### E RUR #### [facility] [address] [place] [address] Dr. Helio Cee PROF CHEM 8 (BAS METB)on Anion gap [Moles/Vol] 13.6 mmol/L Normal [facility] Comment on above: Performed By: #### B FIRE HOSE CURER, HSTROPN, BMP ####[facility] [address] [address]Dr. Helio Cee Calcium [Mass/Vol] 9.1 mg/dL Normal 8.5-10.1 [facility] Comment on above: Performed By: #### B FIRE HOSE CURER, HSTROPN, BMP ####[facility] [address] [address]Dr. Helio Cee Chloride [Moles/Vol] 110 mmol/L Critically high 98-107 [facility] Comment on above: Performed By: #### B FIRE HOSE CURER, HSTROPN, BMP ####[facility] [id number] [place], [place] [address]Dr. Helio Cee CO2 [Moles/Vol] 22.9 mmol/L Normal 21.0-32.0 [facility] Comment on above: Performed By: #### B FIRE HOSE CURER, HSTROPN, BMP ####[facility] [id number] [place], [place] [address]Dr. Helio Cee Creatinine [Mass/Vol] 1.47 mg/dL Critically high 0.55-1.02 [facility] Comment on above: Performed By: #### B FIRE HOSE CURER, HSTROPN, BMP ####[facility] [id number] [place], [place] [address]Dr. Helio Cee EGFR-AF SYRIAN 42 mL/min/1.73m2 Critically low >=60 [facility] Comment on above: Performed By: #### B FIRE HOSE CURER, HSTROPN, BMP ####[facility] [address] [place], [place] [address]Dr. Helio Cee EGFR-NON AF SYRIAN 35 mL/min/1.73m2 Critically low >=60 [facility] Comment on above: Performed By: #### B FIRE HOSE CURER, HSTROPN, BMP ####[facility] [id number] [place], [place] [address]Dr. Helio Cee Glucose [Mass/Vol] 120 mg/dL Critically high 74-106 [facility] Comment on above: Performed By: #### B FIRE HOSE CURER, HSTROPN, BMP ####[facility] [address] [place], [place] [address]Dr. Helio Cee Potassium [Moles/Vol] 3.5 mmol/L Normal 3.5-5.1 [facility] Comment on above: Performed By: #### B FIRE HOSE CURER, HSTROPN, BMP ####[facility] [address] [id number]. Helio Cee Sodium [Moles/Vol] 143 mmol/L Normal 136-145 [facility] Comment on above: Performed By: #### B FIRE HOSE CURER, HSTROPN, BMP ####[facility] [address] [id number]. Helio Cee Urea nitrogen [Mass/Vol] 29.0 mg/dL Critically high 7.0-18.0 [facility] Comment on above: Performed By: #### B FIRE HOSE CURER, HSTROPN, BMP ####[facility] [address] [address]Dr. Helio Cee Urea nitrogen/Creatinine [Mass ratio] 19.7 mg/mg Normal [facility] Comment on above: Performed By: #### B FIRE HOSE CURER, HSTROPN, BMP ####[facility] [address] [address]Dr. Helio Cee TROPONIN, HIGH SENSITIVITYon 11-18-2021 HSTROP 8.2 pg/mL Normal 4.0-51.3 [facility] Comment on above: Result Comment: CUT- OFF POINTS HAVE BEEN ESTABLISHED BASED ON THE FOURTH UNIVERSAL DEFINITIONS OF MYOCARDIAL INFARCTION. THE UPPER REFERENCE LIMIT (URL) OF TROPONIN, DEFINED THE 99TH PERCENTILE OF cTnI DISTRIBUTION IN A REFERENCE POPULATION, HAS BEEN CONFIRMED THE DECISION THRESHOLD FOR AL DIAGNOSIS. Performed By: #### B FIRE HOSE CURER, HSTROPN, BMP ####[facility] [address] [id number]. Helio Cee XR CHEST 1 Von 11-18-2021 [...] EHSAN MILLER Date: 2021-11-18 10:38 Normal [facility] BNPon 10-25-2021 Natriuretic peptide B (Bld) [Mass/Vol] 396.0 pg/mL Normal <=900.0 [facility] Comment on above: Performed By: #### V [id number] #### [facility] [address] [place] [address] Dr. Helio Cee CBC AUTO DIFFon 10-25-2021 BASO # 0.1 103/ul Normal 0.0-0.1 [facility] Comment on above: Performed By: #### E RUR #### [facility] [address] [place] [address] Dr. Helio Cee Basophils/100 WBC (Bld) 1.0 % Normal 0.2-2.0 [facility] Comment on above: Performed By: #### E RUR #### [facility] [address] [place] [address] Dr. Helio Cee EO # 0.2 103/ul Normal 0.0-0.7 [facility] Comment on above: Performed By: #### E RUR #### [facility] [address] [place] [address] Dr. Helio Cee Eosinophils/100 WBC (Bld) 2.7 % Normal 0.9-7.0 [facility] Comment on above: Performed By: #### E RUR #### [facility] [address] [place] [address] Dr. Helio Cee Erythrocyte distribution width (RBC) [Ratio] 14.6 % Normal 11.0-15.0 [facility] Comment on above: Performed By: #### E RUR #### [facility] [address] [place] [address] Dr. Helio Cee Hematocrit (Bld) [Volume fraction] 44.8 % Normal 36.0-48.0 [facility] Comment on above: Performed By: #### E RUR #### [facility] [address] [place] [address] Dr. Helio Cee Hemoglobin (Bld) [Mass/Vol] 13.8 g/dL Normal 12.0-16.0 [facility] Comment on above: Performed By: #### E RUR #### [facility] [address] [place] [address] Dr. Helio Cee IG # 0.03 10e3/ul Normal 0.00-0.03 [facility] Comment on above: Performed By: #### E RUR #### [facility] [address] [place] [address] Dr. Helio Cee IG % 0.3 % Normal 0.0-0.5 [facility] Comment on above: Performed By: #### E RUR #### [facility] [address] [place] [address] Dr. Helio Cee LYMPH # 1.6 103/ul Normal 1.2-3.8 [facility] Comment on above: Performed By: #### E RUR #### [facility] [address] [place] [address] Dr. Helio Cee Lymphocytes/100 WBC (Bld) 18.5 % Critically low 20.5-60.0 [facility] Comment on above: Performed By: #### E RUR #### [facility] [address] [place] [address] Dr. Helio Cee MANUAL DIFF REQ NO Normal [facility] Comment on above: Performed By: #### E RUR #### [facility] [address] [place] [address] Dr. Helio Cee MCH (RBC) [Entitic mass] 29.9 pg Normal 26.7-34.0 [facility] Comment on above: Performed By: #### E RUR #### [facility] [address] [place] [address] Dr. Helio Cee MCHC (RBC) [Mass/Vol] 30.8 g/dL Normal 29.9-35.2 [facility] Comment on above: Performed By: #### E RUR #### [facility] [address] [place] [address] Dr. Helio Cee MCV (RBC) [Entitic vol] 97.2 fL Normal 81.0-99.0 [facility] Comment on above: Performed By: #### E RUR #### [facility] [address] [place] [address] Dr. Helio Cee MONO # 0.6 103/ul Normal 0.3-0.8 [facility] Comment on above: Performed By: #### E RUR #### [facility] [address] [place] [address] Dr. Helio Cee Monocytes/100 WBC (Bld) 7.0 % Normal 1.7-12.0 [facility] Comment on above: Performed By: #### E RUR #### [facility] [address] [place] [address] Dr. Helio Cee NEUT # 6.1 103/ul Normal 1.4-6.5 [facility] Comment on above: Performed By: #### E RUR #### [facility] [address] [place] [address] Dr. Helio Cee Neutrophils/100 WBC (Bld) 70.5 % Normal 43.0-75.0 [facility] Comment on above: Performed By: #### E RUR #### [facility] [address] [place] [address] Dr. Helio Cee Platelet mean volume (Bld) [Entitic vol] 11.0 fL Normal 9.5-13.5 [facility] Comment on above: Performed By: #### E RUR #### [facility] [address] [place] [address] Dr. Helio Cee PLT 292 103/ul Normal 150-450 [facility] Comment on above: Performed By: #### E RUR #### [facility] [address] [place] [address] Dr. Helio Cee RBC 4.61 106/ul Normal 4.20-5.40 [facility] Comment on above: Performed By: #### E RUR #### [facility] [address] [place] [address] Dr. Helio Cee WBC 8.6 103/ul Normal 4.0-11.0 [facility] Comment on above: Performed By: #### E RUR #### [facility] [address] [address] [address] Helio Cee ECHOCARDIO M/2D COMPLETEon 0 10-25-2021 ECHOCARDIO M/2D COMPLETE Patient: AARON HOFFMANN Exam Date: 10/25/2021 : 1945 Gender:F Ordering : DR JEREMIAH REED M.D. Admission #: [id number] Family : Order #: [id number] CLICK HERE TO VIEW EXAM ECHOCARDIOGRAM REPORT [...] Area(A4C): 20.40 cm2 Left Atrium Systolic Volume(A2C): 11464 mm3 Left Atrium Systolic Volume(A4C): 88056 mm3 Mitral Valve MV E to A Ratio: 0.80 Deceleration [place]: 4670 mm/s2 Mitral Valve A-Wave Peak Velocity: [...] Cheema M.D. on 10/25/2021 at 19:31 Normal [facility] MAMM SCREEN 3D EBONI CADon 10-25-2021 MG MAMM SCREEN 3D EBONI CAD Patient: AARON HOFFMANN Exam Date: 10/25/2021 : 1945 Gender:F Ordering : DR JEREMIAH REED M.D. Admission #: [id number] Family : Order #: [id number] CLICK HERE TO VIEW EXAM RADIOLOGY REPORT [...] breast cancer at age 72. LOCATION: [facility] BREAST COMPOSITION: Heterogeneously dense,which may obscure small [...] Miller M.D. on 10/25/2021 at 15:33 Normal [facility] PROF 14(COMP METB)on 022 Albumin [Mass/Vol] 3.8 g/dL Normal 3.4-5.0 [facility] Comment on above: Performed By: #### V [id number] #### [facility] [address] [address] [address] Helio Cee Albumin/Globulin [Mass ratio] 1.1 {ratio} Normal [facility] Comment on above: Performed By: #### V [id number] #### [facility] [address] [address] [address] Helio Cee ALP [Catalytic activity/Vol] 97 U/L Normal 46-116 [facility] Comment on above: Performed By: #### V [id number] #### [facility] [address] [address] [address] Helio Cee ALT [Catalytic activity/Vol] 31 U/L Normal 14-59 [facility] Comment on above: Performed By: #### V [id number] #### [facility] [address] [address] [address] Helio Cee Anion gap [Moles/Vol] 11.0 mmol/L Normal [facility] Comment on above: Performed By: #### V [id number] #### [facility] [address] [address] [address] Helio Cee AST [Catalytic activity/Vol] 13 U/L Critically low 15-37 [facility] Comment on above: Performed By: #### V [id number] #### [facility] [address] [address] [address] Helio Cee Bilirubin [Mass/Vol] 0.4 mg/dL Normal 0.2-1.0 [facility] Comment on above: Performed By: #### V [id number] #### [facility] [address] [address] [address] Helio Cee Calcium [Mass/Vol] 9.3 mg/dL Normal 8.5-10.1 [facility] Comment on above: Performed By: #### V [id number] #### [facility] [address] [address] [address] Helio Cee Chloride [Moles/Vol] 108 mmol/L Critically high 98-107 [facility] Comment on above: Performed By: #### V [id number] #### [facility] [address] [address] [address] Helio Cee CO2 [Moles/Vol] 28.4 mmol/L Normal 21.0-32.0 [facility] Comment on above: Performed By: #### V [id number] #### [facility] [address] [address] [address] Helio Cee Creatinine [Mass/Vol] 1.09 mg/dL Critically high 0.55-1.02 [facility] Comment on above: Performed By: #### V [id number] #### [facility] [address] [place] [address] Dr. Helio Cee EGFR-AF SYRIAN 59 mL/min/1.73m2 Critically low >=60 [facility] Comment on above: Performed By: #### V [id number] #### [facility] [address] [address] [address] Helio Cee EGFR-NON AF SYRIAN 49 mL/min/1.73m2 Critically low >=60 [facility] Comment on above: Performed By: #### V KKS716 #### [facility] [address] [address] [address] Helio Cee Globulin (S) [Mass/Vol] 3.4 g/dL Normal [facility] Comment on above: Performed By: #### V [id number] #### [facility] [address] [address] [address] Helio Cee Glucose [Mass/Vol] 100 mg/dL Normal 74-106 [facility] Comment on above: Performed By: #### V [id number] #### [facility] [address] [address] [address] Helio Cee Potassium [Moles/Vol] 4.4 mmol/L Normal 3.5-5.1 [facility] Comment on above: Performed By: #### V [id number] #### [facility] [address] [place] [address] Dr. Helio Cee Protein [Mass/Vol] 7.2 g/dL Normal 6.4-8.2 [facility] Comment on above: Performed By: #### V [id number] #### [facility] [address] [place] [address] Dr. Helio Cee Sodium [Moles/Vol] 143 mmol/L Normal 136-145 [facility] Comment on above: Performed By: #### V [id number] #### [facility] [address] [place] [address] Dr. Helio Cee Urea nitrogen [Mass/Vol] 24.0 mg/dL Critically high 7.0-18.0 [facility] Comment on above: Performed By: #### V [id number] #### [facility] [address] [place] [address] Dr. Helio Cee Urea nitrogen/Creatinine [Mass ratio] 22.0 mg/mg Normal [facility] Comment on above: Performed By: #### V [id number] #### [facility] [address] [place] [address] Dr. Helio Cee TSHon 10-25-2021 TSH 0.635 uIU/mL Normal 0.358-3.[address] [facility] Comment on above: Performed By: #### V [id number] #### [facility] [facility] [address] [place] [address] Dr. Helio Cee Vital Signs Date Time Vital Sign Value Performing Clinician Facility 12-25-2023 12:37-0400 Blood Pressure Location BRENDA MIAH [facility] 12-25-2023 12:37-0400 Body temperature 98.6 [degF] BRENDA MIAH [facility] 12-25-2023 12:37-0400 Diastolic blood pressure 86 mm[Hg] BRENDA MIAH [facility] 12-25-2023 12:37-0400 Heart rate 70 /min BRENDA MIAH [facility] 12-25-2023 12:37-0400 Respiratory rate 16 /min BRENDA MIAH [facility] 12-25-2023 12:37-0400 Systolic blood pressure 137 mm[Hg] BRENDA MIAH [facility] 09-26-2023 15:39-0400 Blood Pressure Location BRENDA MIAH [facility] 09-26-2023 15:39-0400 Diastolic blood pressure 84 mm[Hg] BRENDA MIAH [facility] 09-26-2023 15:39-0400 Heart rate 68 /min BRENDA MIAH [facility] 09-26-2023 15:39-0400 Respiratory rate 16 /min BRENDA MIAH [facility] 09-26-2023 15:39-0400 Systolic blood pressure 132 mm[Hg] BRENDA MIAH [facility] 08-28-2023 14:59-0400 Blood Pressure Location BRENDA MIAH [facility] 08-28-2023 14:59-0400 Body temperature 98.24 [degF] BRENDA MIAH [facility] 08-28-2023 14:59-0400 Diastolic blood pressure 80 mm[Hg] BRENDA MIAH [facility] 08-28-2023 14:59-0400 Heart rate 92 /min BRENDA MIAH [facility] 08-28-2023 14:59-0400 Respiratory rate 16 /min BRENDA MIAH [facility] 08-28-2023 14:59-0400 Systolic blood pressure 132 mm[Hg] BRENDA MIAH [facility] 06-05-2023 12:55-0500 Blood Pressure Location BRENDA MIAH [facility] 06-05-2023 12:55-0500 Diastolic blood pressure 88 mm[Hg] BRENDA MIAH [facility] 06-05-2023 12:55-0500 Heart rate 74 /min BRENDA MIAH [facility] 06-05-2023 12:55-0500 Respiratory rate 16 /min BRENDA MIAH [facility] 06-05-2023 12:55-0500 Systolic blood pressure 134 mm[Hg] BRENDA MARIN [facility] 04-30-2023 15:30-0500 Body height 161.29 cm Jeremiah Reed Other [facility] Other 04-30-2023 15:30-0500 Body mass index (BMI) [Ratio] 35.29 kg/m2 Jeremiah Reed Other [facility] Other 04-30-2023 15:30-0500 Body weight 91.81 kg Jeremiah Reed Other [facility] Other 04-30-2023 15:30-0500 Diastolic blood pressure 74 mm[Hg] Jeremiah Reed Other [facility] Other 04-30-2023 15:30-0500 Systolic blood pressure 109 mm[Hg] Jeremiah Reed Other [facility] Other 04-13-2023 14:40-0500 Hourly Rounding [facility] 04-13-2023 14:40-0500 Promise to Return [facility] 04-13-2023 13:00-0500 Diastolic blood pressure 77 mm[Hg] [facility] 04-13-2023 13:00-0500 Heart rate 78 /min [facility] 04-13-2023 13:00-0500 Hourly Rounding [facility] 04-13-2023 13:00-0500 Promise to Return [facility] 04-13-2023 13:00-0500 Respiratory rate 16 /min Ahmad [facility] 04-13-2023 13:00-0500 Systolic blood pressure 127 mm[Hg] [facility] 12:13-0500 Heart rate 80 /min [facility] 04-13-2023 12:13-0500 SaO2% (BldA) [Mass fraction] 95 % [facility] 04-13-2023 12:12-0500 Body temperature 97.16 [degF] [facility] 04-13-2023 12:11-0500 Diastolic blood pressure 78 mm[Hg] [facility] 04-13-2023 12:11-0500 Mean blood pressure 94 mm[Hg] [facility] 04-13-2023 12:11-0500 Systolic blood pressure 125 mm[Hg] [facility] 04-13-2023 12:00-0500 Hourly Rounding [facility] 04-13-2023 12:00-0500 Promise to Return [facility] 04-13-2023 09:10-0500 Diastolic blood pressure 70 mm[Hg] [facility] 04-13-2023 09:10-0500 Heart rate 87 /min [facility] 04-13-2023 09:10-0500 Mean blood pressure 90 mm[Hg] [facility] 04-13-2023 09:10-0500 Respiratory rate 17 /min [facility] 04-13-2023 09:10-0500 Systolic blood pressure 130 mm[Hg] [facility] 04-13-2023 08:00-0500 SaO2% (BldA) [Mass fraction] 93 % [facility] 04-13-2023 07:29-0500 Heart rate 89 /min [facility] 04-13-2023 07:29-0500 SaO2% (BldA) [Mass fraction] 94 % [facility] 04-13-2023 07:29-0500 Mean blood pressure 88 mm[Hg] Jacintoag [facility] 04-13-2023 07:29-0500 Body temperature 97.88 [degF] [facility] 04-13-2023 05:00-0500 Blood Pressure Location [facility] 04-13-2023 05:00-0500 Heart rate 95 /min [facility] 04-13-2023 05:00-0500 Mean blood pressure 100 mm[Hg] kittyag [facility] 04-13-2023 00:18-0500 Blood Pressure Location [facility] 04-13-2023 00:18-0500 Body temperature 97.52 [degF] [facility] 04-12-2023 20:33-0500 Body temperature 97.34 [degF] [facility] 04-12-2023 20:33-0500 Mean blood pressure 88 mm[Hg] [facility] 04-12-2023 18:03-0500 Blood Pressure Location [facility] 04-12-2023 16:49-0500 Respiratory rate 22 /min [facility] 04-12-2023 15:00-0500 Respiratory rate 20 /min [facility] 04-12-2023 12:24-0500 gluc 88 mg/dL [facility] 04-12-2023 12:24-0500 gluc [facility] 04-12-2023 12:19-0500 Body temperature 97.7 [degF] [facility] 03-29-2023 15:30-0500 Body height 161.29 cm Jeremiah Reed Other [facility] Other 03-29-2023 15:30-0500 Body mass index (BMI) [Ratio] 37.14 kg/m2 Jeremiah Reed Other [facility] Other 03-29-2023 15:30-0500 Body weight 96.62 kg Jeremiah Reed Other [facility] Other 03-29-2023 15:30-0500 Diastolic blood pressure 85 mm[Hg] Jeremiah Reed Other [facility] Other 03-29-2023 15:30-0500 Systolic blood pressure 144 mm[Hg] Jeremiah Reed Other [facility] Other 06-21-2022 14:42-0500 Blood Pressure Location BRENDA MARIN [facility] Encounters Encounter Date Encounter Type Care Provider Facility Start: 03-04-2024 ambulatory BRENDA Rutledgei ty:AYDE Terrazas Start: 01-24-2024 End: 01-24-2024 ambulatory DIDIER MALDONADO Not Available Start: 12-27-2023 End: 12-27-2023 ambulatory BRENDA MARIN Facility:[facility] Start: 12-27-2023 End: 12-27-2023 Patient encounter procedure BRENDA SOLIMANRY [facility] Start: 12-25-2023 End: 12-25-2023 ambulatory BRENDA SOLIMANRY Facility:[facility] Start: 12-25-2023 End: 12-25-2023 Patient encounter procedure BRENDA Zulema SOLIMANRY [facility] Start: 12-17-2023 End: 12-17-2023 ambulatory Drake Delatorre MD Facility:[facility] Start: 12-03-2023 End: 12-03-2023 ambulatory Cayden ROBB Facility:[facility] Start: 12-03-2023 End: 12-03-2023 Patient encounter procedure Cayden ROBB [facility] Start: 11-26-2023 End: 11-26-2023 ambulatory Alexandro CARMONA Facility:[facility] Start: 11-26-2023 End: 11-26-2023 Patient encounter procedure Alexandro CARMONA [facility] Start: 11-08-2023 End: 11-08-2023 ambulatory DIDIER MALDONADO Not Available Start: 10-29-2023 End: 10-29-2023 ambulatory Drake Delatorre MD Facility: [facility] Start: 10-15-2023 End: 10-15-2023 ambulatory Drake Delatorre MD Facility: [facility] Start: 09-26-2023 End: 09-26-2023 ambulatory BRENDA MARIN Facility:[facility] Start: 09-26-2023 End: 09-26-2023 Patient encounter procedure [facility] Start: 09-17-2023 End: 09-17-2023 ambulatory Drake Delatorre MD Facility:[facility] Start: 08-30-2023 End: 08-30-2023 ambulatory DIDIER MALDONADO Not Available Start: 08-28-2023 End: 08-28-2023 ambulatory BRENDA MARIN Facility:[facility] Start: 08-28-2023 End: 08-28-2023 Patient encounter procedure [facility] E [facility]IAH [facility] Start: 07-23-2023 End: 07-23-2023 ambulatory Cayden ROBB Facility:[facility] Start: 07-23-2023 End: 07-23-2023 Patient encounter procedure Cayden ROBB [facility] Start: 07-09-2023 End: 07-09-2023 ambulatory BRENDA Zulema MIAH Facility:[facility] Start: 06-20-2023 End: 06-20-2023 ambulatory Jeremiah Reed Other [facility] Other Start: 06-20-2023 Telephone encounter Jeremiah Reed [facility] Start: 06-05-2023 End: 06-05-2023 ambulatory BRENDA Zulema MIAH Facility:[facility] Start: 06-05-2023 End: 06-05-2023 Lab Drop off BRENDA E MIAH [facility] Start: 06-05-2023 End: 06-05-2023 ambulatory BRENDA E MIAH Facility:[facility] Start: 06-05-2023 End: 06-05-2023 Patient encounter procedure BRENDA E MIAH [facility] Start: 04-30-2023 End: 04-30-2023 ambulatory Jeremiah Reed Other [facility] Other Start: 04-30-2023 Office outpatient vi sit 25 minutes Jeremiah Reed [facility] Start: 04-30-2023 Telephone encounter Jeremiah Reed [facility] Start: 04-17-2023 End: 04-17-2023 ambulatory Jeremiah Reed Other [facility] Other Start: 04-17-2023 Telephone encounter Jeremiah Reed [facility] Start: 04-13-2023 End: 04-13-2023 ambulatory Ray Fofana Other [facility] Other Start: 04-13-2023 Telephone encounter Ray Fofana [facility] Start: 04-12-2023 End: 04-13-2023 ambulatory Efrain Kurtz Facility:[facility] Start: 04-12-2023 End: 04-13-2023 Observation Efrain Kurtz [facility] Start: 04-09-2023 End: 04-09-2023 ambulatory Drake Delatorre MD Facility: [facility] Start: 03-30-2023 End: 03-30-2023 ambulatory Jeremiah Reed Other [facility] Other Start: 03-30-2023 Telephone encounter Jeremiah Reed [facility] Start: 03-29-2023 End: 03-29-2023 ambulatory Jeremiah Reed Other [facility] Other Start: 03-29-2023 Transitional care manage srvc 14 day discharge Jeremiah Reed [facility] Start: 03-05-2023 End: 03-05-2023 ambulatory Drake Delatorre MD Facility:[facility] Start: 02-05-2023 End: 02-05-2023 ambulatory Drake Delatorre MD Facility:[facility] Start: 01-08-2023 End: 01-08-2023 ambulatory Drake Delatorre MD Facility:[facility] Start: 09-01-2022 End: 09-02-[address] JEREMIAH REED Facility:[facility] Start: 08-29-2022 End: 08-30-2022 ambulatory BARBARA WAGNERMIPATHY . Facility:[facility] Start: 08-21-2022 End: 08-22-[address] EHSAN MILLER Facility:[facility] Start: 08-10-2022 End: 08-11-2022 ambulatory BRENT MALDONADO Facility:[facility] Start: 06-21-2022 End: 06-21-2022 Patient encounter procedure BRENDA MARIN [facility] Start: 06-12-2022 End: 06-13-[address] EHSAN [...] Facility:[facility] Start: 11-24-[address] JEREMIAH REED [facility] ity:[facility] Start: 11-22-2021 End: 11-22-[address] SHIREEN ORTEGA Facility:[facility] Start: 11-18-2021 End: 11-21-2021 Evaluation and management of inpatient DR HARSHAL MENDIETA Facility:[facility] Start: 10-25-2021 End: 10-26-[address] EHSAN MILLER Facility:[facility] Start: 10-24-2018 End: 10-24-2018 Patient encounter procedure Radha Kosta Dong Work Phone: [facility] Start: 08-21-2018 End: 08-21-2018 Patient encounter procedure Radha L Clinjaziel Work Phone: [facility] Start: 06-28-2018 End: 06-28-2018 Patient encounter procedure Radha Dong Work Phone: [facility] Procedures Date Procedure Procedure Detail Performing Clinician Start: 12-03-2023 Cystoscopy BRENDA HAMLIN Start: 07-23-2023 Cystourethroscopy wi th dilation of urethral stricture BRENDA MARIN Start: 06-16-2016 Cystourethroscopy wi th dilation of urethral stricture BRENDA MARIN Appendectomy BRENDA MARIN Biopsy of breast BRENDA KINCAID Hysterectomy BRENDA MARIN Plan of Treatment Date Care Activity Detail Author Start: 10-26-2022 ambulatory Ambulatory Facility: 1 Start: 01-12-2019 Influenza vaccination INFLUENZ A VACCINE (Season Ended) [facility] Start: 01-12-2018 Influenza vaccination INFLUENZA VACC INE (#1) [facility] Start: 02-10-2012 Pneumococcal vaccination PNEUM OCOCCAL VACCINE SERIES (1 of 2 - PCV13) [facility] Start: 1997 Protein mass conc COLON CANCER SCREENING DISCUSSION [facility] Start: 1997 Zoster vaccine hzv l derrell for subcutaneous use ZOSTER (SHINGLES) VACCINE (1 of 2) [facility] Start: 1987 Fasting lipid profile LIPID SCREENIN G [facility] Start: 1987 Protein mass conc MAMMOGRAM SC REENING DISCUSSION [facility] Start: 02-10-1968 Screening for malign ant neoplasm of cervix PAP SMEAR DISCUSSION [facility] Start: 1966 Third diphtheria, te tanus and acellular pertussis (DTaP) vaccination TDAP (ADULT) [facility] Start: 1965 Tetanus vaccination [facility] Start: 1947 Hepatitis C antibody , confirmatory test HEPATITIS C VIRUS SCREENING [facility] Start: 1947 Screening for osteoporosis DEXA SCAN DISCUSSION [facility] Immunizations Immunization Date Immunization Notes Care Provider Keiko koenig 11-18-2021 SARS-CoV-2 (COVID-19 ) mRNA BNT-162b2 vax BRENDA MARIN [facility] 07-21-2020 SARS-CoV-2 (COVID-19 ) Ad26 vaccine, recombinant BRENDA MARIN [facility] 04-11-2020 influenza virus vaccine, unspecified formulation BRENDA MARIN [facility] 02-02-2011 influenza virus vaccine, unspecified formulation BRENDA MARIN [facility] Payers Date Payer Category Payer Medicare 2022 Unknown 1959 Medicare [id number] 1957 Unknown [id number] 1947 Unknown [id number] 2.16.84 0.1.633572.3.579.2.593 1947 Unknown [id number] 2.16.84 0.1.552203.3.579.2.593 1947 Unknown [id number] 2.16.84 0.1.446851.3.579.2.593 1947 Unknown [id number] 2.16.84 0.1.517095.3.579.2.593 1947 Unknown [id number] 2.16.84 0.1.994341.3.579.2.593 1947 Unknown [id number] 2.16.84 0.1.893469.3.579.2.593 1947 Unknown [id number] 2.16.84 0.1.614705.3.579.2.593 1947 Unknown [id number] 2.16.84 0.1.216663.3.579.2.593 1947 Unknown [id number] 2.16.84 0.1.071435.3.579.2.593 1947 Unknown [id number] 2.16.84 0.1.892933.3.579.2.593 1947 Unknown [id number] 2.16.84 0.1.039626.3.579.2.593 1947 Unknown [id number] 2.16.84 0.1.619241.3.579.2.593 1947 Unknown [id number] 2.16.84 0.1.324329.3.579.2.593 1947 Unknown [id number] 2.16.84 0.1.372771.3.579.2.593 1947 Unknown [id number] 2.16.84 0.1.467562.3.579.2.593 1947 Unknown [id number] 2.16.84 0.1.108068.3.579.2.593 1947 Unknown [id number] 2.16.84 0.1.482737.3.579.2.593 1947 Unknown [id number] 2.16.84 0.1.566173.3.579.2.593 1947 Unknown [id number] 2.16.84 0.1.250268.3.579.2.593 1947 Unknown [id number] 2.16.84 0.1.390653.3.579.2.593 1947 Unknown [id number] 2.16.84 0.1.847171.3.579.2.593 1947 Unknown [id number] 2.16. 840.1.589183.3.579.2.196 1947 Unknown [id number] 2.16. 840.1.900811.3.579.2.196 1947 Unknown [id number] 2.16. 840.1.132451.3.579.2.196 1947 Unknown [id number] 2.16. 840.1.533414.3.579.2.196 1947 Unknown [id number] 2.16. 840.1.305453.3.579.2.196 1947 Unknown [id number] 2.16. 840.1.497421.3.579.2.196 1947 Unknown [id number] 2.16. 840.1.940475.3.579.2.196 1947 Unknown [id number] 2.16. 840.1.695974.3.579.2.196 1947 Unknown [id number] 2.16.84 0.1.426128.3.579.2.1259 1947 Unknown [id number] 2.16.84 0.1.106642.3.579.2.1259 1947 Unknown [id number] 2.16.84 0.1.509982.3.579.2.1259 1947 Unknown [id number] 2.16.8 40.1.755216.3.579.2.72 1947 Unknown [id number] 2.16.8 40.1.870708.3.579.2.727 1947 Unknown [id number] 2.16.8 40.1.117302.3.579.2.727 1947 Unknown [id number] 2.16.8 40.1.203716.3.579.2.727 1947 Unknown [id number] 2.16.8 40.1.959024.3.579.2.727 1947 Unknown [id number] 2.16.8 40.1.638478.3.579.2.727 1947 Unknown [id number] 2.16.8 40.1.871548.3.579.2.727 1947 Unknown [id number] 2.16.8 40.1.130053.3.579.2.727 1947 Unknown [id number] 2.16.8 40.1.055036.3.579.2.727 1947 Unknown [id number] 2.16.8 40.1.039823.3.579.2.727 1947 Unknown [id number] 2.16.8 40.1.166202.3.579.2.727 1947 Unknown [id number] 2.16.8 40.1.319265.3.579.2.727 1947 Unknown [id number] 2.16.8 40.1.335206.3.579.2.727 Social History Date Type Detail Facility Tobacco smoking stat [facility] Unknown if ever smoked [facility] Sex Assigned At Not on file [facility] Start: 02-03-2021 End: 12-25-2023 Tobacco smoking status Ex-smoker (finding) [facility] Sex Assigned At Female [facility] Tobacco smoking status Never [facility] Functional Status Date Assessment Result Facility 12-25-2023 Functional Status N/A [facility] 12-03-2023 Functional Status N/A [facility] 09-26-2023 Functional Status N/A [facility] 08-28-2023 Functional Status N/A [facility] 06-05-2023 Functional Status N/A [facility] 04-12-2023 Functional Status N/A [facility] 04-12-2023 Functional Status [facility] 06-21-2022 Functional Status N/A [facility] Clinical Notes 01-12-2013 to 12-25-2023 Note Date [...] to have the catheter removed. Medicines Take nyzm-nri-dpqboao and prescription medicines only as told by [...] provider. Document Revised: 12/16/2020 Document Reviewed: 12/03/2020 [employer] Patient Education 2022 [employer]. Follow Up Care 12/03/2023 14:36:32 With:BRENDA MARIN PA-C, URL Address: [address] [place] [place] [address] [phone] When: Unknown [facility] 12-25-2023 Note Patient Education Urology Injection Treatments [...] have the catheter removed. Medicines ? Take pbty-vqx-crihqfe and prescription medicines only as told by [...] provider. Document Revised: 12/16/2020 Document Reviewed: 12/03/2020 [employer] Patient Education ? 2022 [employer]. [facility] 12-03-2023 Hospital Discharg e instructions Patient [...] Up Care 10/01/2023 15:36:12 With:BRENDA MARIN Address: [address] [facility] [place] [address] Business (1) When: Unknown Comments:Call for followup appointment with Georgette Marin PA-C within the next three weeks or so. Push fluids to keep the urine clear. Expect the Botox to start working within the next 2-3 weeks. Have a great day! [facility] 12-03-2023 Note Patient Education Cystoscopy with Botox [...] you have a fever over 100 degrees. [facility] 09-26-2023 Hospital Discharg e instructions Patient [...] including vitamins, herbs, eye drops, creams, and oybg-vdw-gmlhest medicines. Any problems you or family members [...] provider tells you to take them. Taking owai-osw-cqkwpey medicines, vitamins, herbs, and supplements. General instructions [...] Follow these instructions at home: Medicines Take ndzu-owq-msynkhr and prescription medicines only as told by [...] provider. Document Revised: 11/04/2021 Document Reviewed: 11/04/2021 [employer] Patient Education 2022 [employer]. Follow Up Care 08/30/2023 10:04:37 With:BRENDA MARIN PA-C, URL Address: [address] [place] [address] [phone] When: Unknown Comments:flaquita dietz MD [facility] 08-28-2023 Hospital Discharg e instructions Patient Education [...] your health care provider. General instructions Take yipq-xlj-gohjjua and prescription medicines only as told by [...] provider. Document Revised: 01/17/2021 Document Reviewed: 01/17/2021 [employer] Patient Education 2022 [employer]. Follow Up Care 07/23/2023 14:35:57 With:BRENDA MARIN PA-C, URL Address: [address] [place] [address]. [place] [address] Business (1) When:6 weeks [facility] 07-23-2023 Hospital Discharg e instructions Patient Education [...] Up Care 06/11/2023 13:39:28 With:BRENDA MARIN Address: [address] [facility] [place] [address] Business (1) When: Unknown Comments:Call for followup appointment with Georgette Marin PA-c within the next 2 months or so to monitor you. Please finish your antibiotics and have a great day. [facility] 07-23-2023 Note [id number] [facility] 07-23-2023 Note Cystoscopy with Uret hral [...] you have a fever over 100 degrees [facility] 06-20-2023 Evaluation note Encounter Date Diagnosis Assessment Notes Jun, Essential (primary) hypertension (ICD-10 - I10) [facility] Other 01-23-2024 Hospital Discharge instructions Patient Education [...] reconstructed. Follow these instructions at home: Take qkfy-zhu-ilincgn and prescription medicines only as told by [...] provider. Document Revised: 03/07/2022 Document Reviewed: 03/07/2022 [employer] Patient Education 2022 [employer] Follow Up Care 06/21/2022 15:14:52 With:CEZAR BERNAL, Cayden Hollins, URL Address: [address] [place] [address]- When: Unknown [facility] 01-23-2024 Evaluation + Plan note Diagnostic Tests Pending * Urine Culture 06/05/23 [facility]12-18-2023 Evaluation note* Encounter Date Diagnosis Assessment Notes [...] symptoms. Any developing patterns. Stay well hydrated. [facility] Other [id number] NoteChief Complaint pt arrives via [facility] after being found outside by a neighbor without a shirt on. pt is a/o to self and place, not time. FSBS upon arrival 88. Pt was recently treated for UTI @[facility]. pt. shayla fall, was found sitting down. History of Present Illness 78-year-old female with PMH reformed smoker, HTN, anxiety, depression, peripheral neuropathy, GERD, OAB, obesity. -Patient presented to the ED secondary to confusion. -Per ED physician patient was recently in [facility] and treated for a UTI on antibiotic, [...] reviewed and are negative or noncontributory Scoring She Basurto Risk Score: 50 High (04/12/23) Physical Exam [...] Lymph Auto: 9.7 % Low (04/12/23 12:53:00) [place] Auto: 7.8 % (04/12/23 12:53:00) Eos Auto: 0.1 % (04/12/23 12:53:00) Basophil Auto: 0.4 % (04/12/23 12:53:00) Neutro Absolute: 12.4 E9/L High (04/12/23 12:53:00) Lymph Absolute: 1.5 E9/L (04/12/23 12:53:00) [place] Absolute: 1.2 E9/L High (04/12/23 12:53:00) Eos [...] 88 mg/dL (04/12/23 12:23:00) POC Device SN: [id number] (04/12/23 12:23:00) POC User ID: (more content not included)...[facility]:Result Comment: Electronically Signed By: Radha TAYLOR\.br\Date and Time Signed: 04/12/23 16:29 EST\.br\Electronically Co-Signed By: Radha TAYLOR\.br\Date and Time Co-Signed: 04/12/23 16:37 EST\.br\Electronically Co-Signed By: Radha TAYLOR\.br\Date and Time Co-Signed: 04/12/23 16:58 EST\.br\Electronically Co-Signed By: Tessie BERNAL, Efrain\.br\Date and Time Co-Signed: 04/13/23 16:43 [id number] NoteAdmission and Discharge Information Admitting Physician - [...] willbe reviewed and discussed with PCP or compensation vice president MD once the hospital 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 I [...] made to ensure accuracy, however, inadvertently computerized transcription coordinator mistakes may be present. Significant Findings CT [...] spine, with routine reconst (more content not included)...[facility] HospitalComment on above:Result Comment: Electronically Signed By: Radha TAYLOR\.br\Date and Time Signed: 04/13/23 10:54 EST\.br\Electronically Co-Signed By: Radha TYALOR\.br\Date and Time Co-Signed: 04/13/23 10:57 EST\.br\Electronically Co-Signed By: Radha TAYLOR\.br\Date and Time Co-Signed: 04/13/23 10:58 EST\.br\Electronically Co-Signed By: Radha TAYLOR\.br\Date and Time Co-Signed: 04/13/23 10:59 EST\.br\Electronically Co- Signed By: Radha TAYLOR\.br\Date and Time Co-Signed: 04/13/23 13:55 EST\.br\Electronically Co-Signed By: Tessie BERNAL, Ahmad\.br\Date and Time Co- Signed: 04/13/23 16:37 [id number] Evaluation + Plan noteExtracted from: Title:Discharge Note [...] cap(s), Oral, Daily With When Contact Information [facility] Additional Instructions: Call for followup appointment for anxiety/depression care. Gerald Nolasco Within 1 to [address], [place] [address]- Business (1) Additional Instructions: JEREMIAH REED Within 2 to 4 days [address] [place] [address]- Business (1) Additional Instructions: Confusion Extracted from: [...] deep vein thrombosis (DVT) prophylaxis (Z79.899: Other long-term (current) drug therapy) Depression, unspecified (F32.A: Depression, [...] deep vein thrombosis (DVT) prophylaxis (Z79.899: Other long-term (current) drug therapy) Depression, unspecified (F32.A: Depression, [...] Extracted from: Title:Admission H & P Author:TITI SANDOVALP-SKYLA R enee Date:04/12/23 1. AMS (altered mental [...] Cr - unknown - awaiting records from [facility] -Renal US & PVR - if [...] deep vein thrombosis (DVT) prophylaxis (Z79.899: Other long-term (current) drug therapy) -Heparin sq with early [...] made to ensure accuracy, however, inadvertently computerized transcription coordinator mistakes may be present. Future Appointments Appointment Date:06/05/2023 01:00:00 PM Scheduled Provider:BRENDA MARIN PA-C Location:[facility] Appointment Type:URO Office Visit [facility]12-01-2023 Hospital Discharge instructions Patient Education 04/13/2023 10:40:43 [...] friend for help if needed. Medicines Take hmsg-wbt-nnaimxv and prescription medicines only as told by [...] consider day care, extended-care programs, or a mcfp facility. The person's health care provider may [...] provider. Document Revised: 08/24/2020 Document Reviewed: 08/24/2020 [employer] Patient Education 2022 [employer]. Follow Up Care 04/12/2023 12:15:50 With:Johnnie BERNAL, ALPHONSE Choi Address: [place] [id number]- When:1 to 2 weeks Comments:This office is closed on Fridays. Please call the office on Sunday April 16, 2023 for a follow upappiontment. Thank you. With:JEREMIAH REED Address: [address] [place] [address] [facility] (1) When:2 to 4 days Comments:Call for followup appointment With:[facility] Address:Unknown When: Unknown Comments:Call for followup appointment for anxiety/depression care. [facility]12-01-2023 NoteChief Complaint AMS Reason for Consultation Altered [...] deep vein thrombosis (DVT) prophylaxis (Z79.899: Other long-term (current) drug therapy) Depression, unspecified (F32.A: Depression, [...] 2 tab(s), Oral, q6hr, PRN Afrin 0.05% [place], 2 s (more content not included)...[facility] Comment on above:Result Comment: Electronically Signed By: Rik ALVARES, Kamaal\.br\Date and Time Signed: 04/13/23 09:19 EST\.br\Electronically Co- Signed By: Gerald Nolasco DO\.br\Date and Time Co-Signed: 04/13/23 11:28 EST 04-13-2023 NotePT Evaluation done this date. Pt. with on AM-PAC this date. Recommend she use FWW for gait aswith cane she reaches for objects to hang onto with other hand. Will likely benefit from home health PT.[facility]11-17-[facility] Evaluation note* Encounter Date Diagnosis Assessment Notes Treatment Notes Treatment Clinical Notes Mar, Colon cancer screening (ICD-10 - Z12.11) [facility] Other 11-16-2023 Evaluation note* Encounter Date Diagnosis Assessment Notes Treatment Notes Treatment Clinical Notes Mar, Generalized weakness (ICD-10 - R53.1) Followup as scheduled w ortho and PT Mar, COPD, moderate (ICD-10 - J44.9) continue present medication reviewed ER report from observation status [facility] Other 03-30-2023 NoteCONSULTATION CONSULTATION DATE: 08/10/2022 TO: [...] weeks' time or sooner if needed. [id number] NoteCONSULTATION PROCEDURE DATE: 08/10/2022 PROCEDURE: Right suprascapular [...] reduction in her pain symptoms post procedurally.[id number] Hospital Discharge instructions Patient Education 06/21/2022 14:35:24 [...] fried and sweet foods. General instructions Take xmsc-mhq-fxhllnh and prescription medicines only as told by [...] 02/24/2010 Document Revised: 08/21/2019 Document Reviewed: 05/16/2018 [employer] Patient Education 2020 Ghost. Follow Up Care 05/19/2021 14:10:29 With:BRENDA MARIN PA-C, URL Address: [address] [place] [address] [facility] [place] [address] When: Unknown [facility] 12-29-2022 NoteCONSULTATION CONSULTATION DATE: 05/11/2022 HISTORY OF [...] the diclofenac. 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 [...] in three months' time unless otherwise indicated.[facility] [id number] NoteCONSULTATION CONSULTATION DATE: 02/23/2022 This is a [...] in three months' time unless otherwise indicated.The [facility] [id number] NoteCONSULTATION CONSULTATION DATE: 01/08/2022 HISTORY OF PRESENT [...] followed up in the office post procedure.The [facility] [id number] Note CONSULTATION CONSULTATION DATE: 12/07/2021 HISTORY OF [...] and patient would like to proceed. The [facility] [id number] History general Narrative - Reported* Type Description Date Medical History Chronic back pain Medical History HTN Medical History anxiety Medical History DJD Medical History osteoporosis Surgical History Lumbar laminectomy and fusion Surgical History Hysterectomy (spared L ovary) Surgical History Landaverde's neuroma Hospitalization History For surgery as above Hospitalization History [facility] 03/2023 Bib [facility] Tuck Other Evaluation + Plan note Future Appointments Appointment Date:06/26/2023 02:30:00 PM Scheduled Provider:BRENDA MARIN PA-C Location:[facility] Appointment Type:URO Office Visit [facility] evaluation + Plan note Future Appointments Appointment Date:08/28/2023 03:00:00 PM Scheduled Provider:BRENDA MARIN PA-C Location:[facility] Future Appointments Appointment Date:11/27/2023 11:00:00 AM Scheduled Provider: Location:[facility] Appointment Type:Urology CALL PAT FT Appointment Date:12/03/2023 02:00:00 PM Scheduled Provider: Location:[facility] Appointment Type:Urology FT [facility] evaluation + Plan note Future Appointments Appointment Date:12/25/2023 12:40:00 PM Scheduled Provider:BRENDA MARIN PA-C Location:[facility] Appointment Type:URO Office Visit [facility] noteNo [employer] Other Hospital course Narrative No data available for this section [facility] Hospital Discharge instructions No data available for this section [facility] No data available for this section [facility] Summary Purpose Family History No Family History [...] Name: JEREMIAH REED MD Address: Address: [address] [place] [address] Personnel Name: JEREMIAH REED MD Address: Address: [address] [place] [address] Personnel Name: JEREMIAH REED MD Address: Address: [address] [place] [address] Personnel Name: JEREMIAH REED MD Address: Address: [address] [place] [address] Personnel Name: JEREMIAH REED MD Address: Address: [address] [place] [address] Personnel Name: JEREMIAH REED MD Address: Address: [address] [place] [address] Personnel Name: JEREMIAH REED MD Address: Address: [address] [place] [address] Personnel Name: JEREMIAH REED MD Address: Address: [address] [place] [address] Personnel Name: JEREMIAH REED MD Address: Address: [address] [place] [address] Personnel Name: JEREMIAH REED MD Address: Address: [address] [place] [address] Personnel Name: JEREMIAH REED MD Address: Address: [address] [place] [address] INFORMATION SOURCE (unrecogn ized section and content) DATE CREATED AUTHOR 09/08/2022 [facility] DATE CREATED AUTHOR AUTHOR'S ORGANIZ ATION 12/31/2023 [facility] DATE CREATED AUTHOR AUTHOR'S ORGANIZ ATION 01/26/2024 [facility] DATE CREATED AUTHOR AUTHOR'S ORGANIZ ATION 01/30/2024 [facility] FOR RECORDS PERTAINING TO PATIENTS WHO [...] BE BASED ON THE PRIMARY CLINICAL RECORDS. [employer] provides no warranty or guarantee of the accuracy or completeness of information in this document.
[2024-02-04 10:02] VITALS: BP 140/96; PULSE 104; TEMP 36.6; O2SAT 97
[2024-02-04 10:51] VITALS: BP 195/91; BP 200/93; PULSE 94; O2SAT 96
--- NOTE | 2024-02-04 10:55 | P.ON_ITS ---
Date of procedure: 02/04/24 Pre-op diagnosis: Pain due to lumbar stenosis with neurogenic claudication Post-op diagnosis: same as pre-op Procedure: Procedure: Right L4-5, L5-S1 transforaminal epidural steroid injection Medications: Bupivacaine 0.25% 2cc, lidocaine 2% 1cc, kenalog 80mg The patient was seen and examined in the preoperative holding area.? Informed consent was obtained and placed on the chart.? Patient was brought to the medical procedure unit and placed in the prone position where a timeout was completed verifying the correct patient, procedure site, position, and planned special equipment using sterile aseptic technique.? Under direct fluoroscopic visualization a 25-gauge Quincke tipped spinal needle was advanced to the designated neural foramen where contrast dye was injected to show adequate spread.? The needle was inserted at level right L4-5. There was no evidence of vascular or adverse uptake.? Epidural spread was appreciated.? The above- mentioned injectate was then placed in a 1.5 mL aliquot preceded by negative aspiration.? The needle was removed. The needle was inserted and the procedure repeated at level right L5-S1.? The surgery site was covered.? Patient was taken to the postprocedural recovery area and monitored for an appropriate length of time before found suitable for discharge in the accompaniment of a responsible adult. Anesthesia: Local Surgeon: Drake Delatorre Pathology: none sent Condition: stable Disposition: no change
[2024-02-04] MEDS: BUPIVACAINE HCL 0.25% PF 25 MG/10 ML VIAL INJ (10:56)
[2024-02-04] MEDS: IOHEXOL 240 MG/ML - 10 ML VIAL 12 MG INJ (10:56)
[2024-02-04] MEDS: METHYLPREDNISOLONE ACETATE 80 MG/ML VIAL INJ (10:56)
[2024-02-04] MEDS: 0.9 % SODIUM CHLORIDE 10 ML SYRINGE - SALINE FLUSH INJ (10:56)
[2024-02-04] MEDS: LIDOCAINE HCL 2% 400 MG/20 ML MDV 3 ML INJ (10:57)
== END 2024-02-04 11:03 | disposition home or self-care (01) ==
LOC: SURGOUT 09:35
PROVIDERS: PCP Family Medicine; Visit Provider Anesthesiology
DX: M48.062 Spinal stenosis, lumbar region with neurogenic claudication (principal)
CPT/HCPCS: 64483; 64484; J0665; J1010; Q9966

== ENCOUNTER 2024-02-14 12:34 | Outpatient (OUT) | payer MEDICARE, OTHER, SELFPAY ==
--- NOTE | 2024-02-14 12:47 | PM.CN ---
Consult Note: HPI Data of Consult Patient: known to practice within the last 3 years Requesting Physician: Sheri Lozano NP Primary Care Provider: Tierra Newell MD Consult Narrative Reason for consult: f/u Narrative: Jing Hoffmann a pleasant 79 year old female presents for evaluation and management of chronic neck and low back pain. Patient reporting moderate to severe low back pain with radiculopathy, greater than 3 months unresponsive to HEP and conservative medications. Pain today 54-5/10 aching sharp increasing to 8/10 with activity, standing, walking, pushing, pulling, ADLS. Pain improved with heat, lying, and sitting. Patient recently underwent bilateral L4-5 L5-S1 RFA with no improvement. Continues to have moderate to severe low back pain. Recent lumbar MRI completed with results below. recently underwent right L4/5 L5/S1 TFESI with 30% improvement ongoing. cc:: CC: Sheri Lozano NP Review of Systems ROS Status of ROS 10 or more systems reviewed and unremarkable except as noted in history and below Musculoskeletal Reports: back pain, extremity pain and joint pain PFSH PFSH Medical History COPD (chronic obstructive pulmonary disease) ?J44.9 - Chronic obstructive pulmonary disease, unspecified (ICD-10) GERD (gastroesophageal reflux disease) ?K21.9 - Gastro-esophageal reflux disease without esophagitis (ICD-10) Chronic pain ?G89.29 - Other chronic pain (ICD-10) Anxiety ?F41.9 - Anxiety disorder, unspecified (ICD-10) HTN (hypertension) ?I10 - Essential (primary) hypertension (ICD-10) Chronic prescription opiate use ?Z79.891 - longterm (current) use of opiate analgesic (ICD-10) Shoulder arthritis ?M19.019 - Primary osteoarthritis, unspecified shoulder (ICD-10) Cervical spondylosis ?M47.812 - Spondylosis without myelopathy or radiculopathy, cervical region (ICD-10) Surgical History History of lumpectomy of left breast ?Z98.890 - Other specified postprocedural states (ICD-10) History of back surgery ?Z98.890 - Other specified postprocedural states (ICD-10) History of hysterectomy ?Z90.710 - Acquired absence of both cervix and uterus (ICD-10) Family History Mother Family history of cancer Father Family history of stroke Grandfather Family history of stroke Social History Within the past year, how often did you have a drink containing alcohol: never Score interpretation: A score less than 3 is consistent with normal alcohol consumption. Smoking status: Former smoker Non-prescribed substance use: denies use Previous occupational history: retired Highest level of school completed/degree received: high school graduate Are you now , , , , never or living with a partner: Little interest or pleasure in doing things: not at all Feeling down, depressed, or hopeless: not at all Feel stressed/tense/nervous/anxious/difficulty sleeping: not at all Do you think of yourself as: straight/heterosexual Gender Identity: female Meds Home Medications and Allergies Home Medications ?Medication ?Instructions ?Recorded ?Confirmed ?Type multivitamin 1 tab PO DAILY 10/26/22 02/04/24 History omeprazole 40 mg capsule,delayed 40 mg PO DAILY 10/26/22 02/04/24 History release calcium carbonate (Calcium 600) 600 mg PO DAILY 03/21/23 02/04/24 History meloxicam 15 mg tablet 15 mg PO DAILY 03/21/23 02/04/24 History gabapentin 300 mg capsule 300 mg PO TID #270 caps 06/07/23 02/04/24 Rx baclofen 10 mg tablet 5 mg PO TID PRN muscle spasm 07/19/23 02/04/24 History acetaminophen 325 mg tablet 650 mg PO Q6H PRN pain 08/30/23 02/04/24 History amlodipine 2.5 mg tablet 2.5 mg PO DAILY 08/30/23 02/04/24 History aspirin 81 mg tablet,delayed 81 mg PO DAILY 08/30/23 02/04/24 History release glucosamine sulfate 500 mg tablet 500 mg PO BID 08/30/23 02/04/24 History (Glucosamine) oxycodone-acetaminophen 5 mg-325 1 tab PO TID PRN pain 08/30/23 02/04/24 History mg tablet (Percocet) nortriptyline 25 mg capsule 25 mg PO DAILY #90 caps 10/17/23 02/04/24 Rx albuterol sulfate 90 mcg/actuation 2 puff inhalation Q4H PRN 12/28/23 02/04/24 History aerosol inhaler shortness of breath or wheezing buspirone 10 mg tablet 10 mg PO BID 12/28/23 02/04/24 History Allergies Allergy/AdvReac Type Severity Reaction Status Date / Time No Known Drug Allergies Allergy Verified 02/04/24 10:16 Exam Constitutional Documenting provider has reviewed patient's vital signs: yes Common normals: no apparent distress, oriented x3, healthy appearing, alert and well nourished General appearance: cooperative HENMT Common normals: normocephalic, hearing grossly normal bilaterally and moist oral mucous membranes Head and scalp: normocephalic Eye Common normals: PERRL Pupil: PERRL Neck & C-Spine Common normals: full ROM General: normal visual inspection Cervical spine: pain with cervical ROM and cervical spine tenderness Other: reports intermittent numbness tingling and weakness of RUE strength 5/5 on exam negative spurlings sensation intact and equal to BUE Chest Common normals: inspection of chest normal Respiratory Common normals: normal respiratory effort, no retractions and no use of accessory muscles Back & Pelvis Lumbar spine/lower back: ROM limited, pain with ROM and straight leg raise positive right Sacroiliac joints: SI joint(s) abnormal (right SIJ positive daxa/fadir, thigh thrust, gaenslen ) Other: decreased sensation to right L4,5,S1 pattern strength 5/5 in BLE positive facet loading Extremity Common normals: normal to inspection Right upper extremity: shoulder joint (pain and limited ROM, tender to touch) Other: limited ROM with abduction and overhead extension, unable to perform scratch test due to pain Neuro Common normals: oriented x3, CN's II-XII intact bilaterally, moves all extremities, no focal motor deficits, no sensory deficits noted and deep tendon reflexes 2+ bilaterally Sensorium/orientation: alert Motor exam: strength 5/5 throughout and no movement abnormalities noted Psych Common normals: mental status grossly normal, thought process normal, cooperative, affect normal, speech normal and activity/motor behavior normal Speech: normal speech Thought process: normal thought process Results Additional Findings Additional findings: If on a controlled substance or opioids, I have checked an [place]ARRS report on this patient and there are no aberrancies noted in the prescribing history.??If on a controlled substance or opioid a drug screen was completed and reviewed within the last year, and if there has not been a drug screen completed we ordered one today to monitor higher risk, state monitored pain medication use. As part of providing excellent, safe, comprehensive care, the following was completed at our patient's visit: 1. A medication reconciliation and review to ensure accurate knowledge of current/active medications, including asking our patients to inform us about any xszg-hkm-kghjpkv medications or herbal remedies/nutritional supplements/alternative remedies. 2. A review to specifically ensure our patients have had annual screening for screening for depression, screening for tobacco use, and screening for unhealthy alcohol use. For concerning screenings had a discussion with the patient, provided patient education, and recommended follow-up with primary care provider when appropriate. If patient noted with a risk of falling, they received education on strength, gait, and balance training to prevent future risk of falling. Assessment and Plan Assessment and Plan (1) Lumbar stenosis with neurogenic claudication: (2) Lumbar spondylosis: (3) Cervical radiculopathy: (4) Primary osteoarthritis, right shoulder: (5) Tendinopathy of right shoulder: (6) Cervical spinal stenosis: (7) Failed back syndrome: Plan pt not interested in spinal cord stimulator trial at this time due to transportation issues and commitment patient noticing increased heartburn with denia and aleve, has been told in the past to stop OTC NSAIDs while on meloxicam. DC meloxicam increase percocet 5-325mg TID PRN moderate to severe pain f/u 3 months, sooner if needed
== END 2024-02-14 12:35 | disposition home or self-care (01) ==
LOC: PM 12:34
PROVIDERS: PCP Family Medicine; Visit Provider Nurse Practitioner
DX: M48.062 Spinal stenosis, lumbar region with neurogenic claudication (principal); M47.816 Spondylosis without myelopathy or radiculopathy, lumbar region; M48.02 Spinal stenosis, cervical region; M54.12 Radiculopathy, cervical region; M19.011 Primary osteoarthritis, right shoulder; M75.91 Shoulder lesion, unspecified, right shoulder; M96.1 Postlaminectomy syndrome, not elsewhere classified
CPT/HCPCS: G0463

== ENCOUNTER 2024-02-27 09:57 | Emergency (ER) | payer MEDICARE, OTHER, SELFPAY ==
[2024-02-27 10:02] VITALS: BP 145/96; PULSE 117; TEMP 36.6; O2SAT 97; BMI 33.7
--- OUTSIDE RECORDS SUMMARY | 2024-02-27 10:05 | XMS_ITS | CCD ---
Author Organization [facility] Care Team Providers Care [employer] Technician Name Role Phone Unavailable Primary Care Provider [...] DR JEREMIAH Poole Consulting Unavailable FLORES ., MATRIN Consulting Unavailable RAMOS ., DR FELISHA Page Attending Unavailable RAMOS ., DR FELSIHA Page Admitting Unavailable REED, DR JEREMIAH Poole [...] MARIN Attending Unavailable Cayden ROBB Admitting Unavailable COOKCayden Attending Unavailable COOKCayden P Referring Unavailable COOKCayden P Admitting Unavailable COOKCayden Attending Unavailable Cayden ROBB Referring Unavailable BRENDA MARIN Admitting Unavailable MIAHBRENDA DAMICO Attending Unavailable MIAHBRENDA DAMICO Attending Unavailable MIAHBRENDA DAMICO Admitting Unavailable MoussEfrain saez Attending Unavailable Glen AllenEhsan cortez Consulting Unavailable Efrain Kurtz Admitting Unavailable MD Ehsan Blair Consulting Unavailable [place], Ehsan Consulting Unavailable [place], Ehsan Consulting Unavailable [place], Ehsan Consulting Unavailable [place], Ehsan Consulting Unavailable [place], Ehsan Consulting Unavailable [place], Ehsan Consulting Unavailable [place], Ehsan Consulting Unavailable BRENDA MARIN Attending Unavailable MIAHBRENDA DAMICO Attending Unavailable MIAHBRENDA DAMICO Referring Unavailable MIAHBRENDA DAMICO Attending Unavailable Alexandro CARMONA Attending Unavailable MIAHBRENDA DAMICO Attending Unavailable MIAHBRENDA DAMICO Attending Unavailable BRENDA [...] physicia Propensity to adverse reactions 9 Comment:Done Kinesense Other (7 sources) Allergies Reconciled Propensity to adverse reactions Unknown Kinesense Other Medications Current Medications Medication Drug Class(es) [...] Active oral daily for 30 *Reorder from Cardiac SystemzHapBoo for eRx and Interaction Alerts* Apr, Active Start: 02-11-2019 take 2 tablets by mo [facility] once daily amLODIPine 2.5 mg Tab [...] Entry Oral for 0 *Pick strength-form from GoPlanit for eRX* Mar, Active Start: 03-31-2021 take [...] afterwards, # 2 tab(s), Refills(s) 0, [id number] 165, cm, 06/05/23 12:57:00 EST, [...] for 0 duration 5 years *Reorder from GoPlanit for eRx and Interaction Alerts* Nov, Active [...] day(s), # 30 tab(s), Refills(s) 11, Pharmacy: [facility]/pharmacy #[id number], 165, cm, 08/28/23 15:03:00 EDT, [...] day(s), # 30 tab(s), Refills(s) 11, Pharmacy: [facility], 165, cm, 06/21/22 14:53:00 EST, Height/Length Dosing, 87, kg, 06/21/22 14:53:00 EST, Weight Dosing Start Date: 06/21/22 Stop Date: 06/16/23 Status: Ordered Tudorza Pressair 400mcg/actuat (7 sources) Start: 04-12-2022 take 1 puff(s) by inhalation twice daily Tudorza Pressair 400mcg/actuat Tudorza Pressair 400mcg/actuat, 1 (one) Puff BID # 1, 04/12/2022, Ref. x12. Active inhalation BID *Pick strength-form from Cardiac Systemzspan for eRX* Mar, Active Start: 04-12-2022 take 1 puff(s) by in halation twice daily Tudorza Pressair 400mcg/actuat Tudorza Pressair 400mcg/actuat, 1 (one) Puff BID # 1, 04/12/2022, Ref. x12. 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 Patient Letter [facility] January 28, 2024 AARON LEWIS [address] [place] [address] : 1945 Dear Aaron Lewis, We have been trying to reach you with no success. It is important that you return our call upon receiving this letter. Also, at the time of your call, please provide us with your current information. Thank you for your prompt attention to this matter. Sincerely, [facility] [address] [place] [address] [facility] Ambulatory Visit Summaryon 0 12-25-2023 Ambulatory Visit Summary Ambulatory Visit Summary AARON LEWIS :1945 Visit Date:12/25/2023 Ambulatory Visit Instructions Your [...] PA-C, URL When: Where: [address] [address] [phone] Medications What How Much When Instructions Unchanged [...] tubing an (more content not included)... Normal [facility] Urology Office/Clinic Noteon 12-25-2023 Urology Office/Clinic Note [...] Contact Information MIAH ROE, BRENDA Poole, URL [address] [place] [address] [phone] Additional Instructions: nurse visit in 1 wk w/ PVR, will call pt to schedule f/u Patient Education Injection Treatments for Urinary Incontinence, Care After Documentation recorded by the scribkarly Colon accurately reflects the services(s) I performed [...] than 30 (more content not included)... Normal [facility] Comment on above: Result Comment: Elec tronically Signed By: BRENDA MARIN PA-C\.br\Date and Time Signed: 12/25/23 13:09 EDT\.br\Electronically Co-Signed By: Abby Colon.br\Date and Time Co-Signed: 12/25/23 13:07 EDT Inpatient Patient Summaryon 12-03-2023 Inpatient Patient Summary Inpatient Patient Summary [address] [address] Clinical Summary Person Information Name: AARON LEWIS Age: 78 Years : 1945 Sex: Female PCP: JEREMIAH REED MD Marital Status: Phone: [phone] Race: White Ethnicity: Non- or Language: Stateless Visit Id: Visit Reason: URINARY INCONTINENCE Speciality: Acuity: Enc Type: Outpatient Med Service: Surgery Arrival: 12/03/2023 13:41:56 Discharge: Dispo Type: Address: [address] [place] [address] [address] [place] [id number] Provider Notes: Diagnosis: Problems Active Recurrent UTI [...] Follow up: With: Address: When: BRENDA MARIN [address] [facility] [place] [phone] [facility] (1) Comments: Call for followup appointment with Georgette Marin PA-C within the next three weeks or so. Push fluids to keep the urine clear. Expect the Botox to start working within the next 2-3 weeks. Have a great day! Patient Education Information: EU - Cystoscopy with Botox Injection Discharge Instructions (Custom) [facility] Main OR Intraoperative Recor don 12-03-2023 Main OR Intraoperative Record Main OR Intraoperative Record IntraOp Document Type FTURO Summary Primary Physician: Cayden ROBB MD Finalized Date/Time: 12/03/23 14:30:52 Pt. Name: АННАAARON/Sex: 1945 Female Med Rec #: [id number] Physician: Cayden ROBB MD Financial #: [id number] Pt. Type: O Room/Bed: / Admit/Disch: 12/03/23 13:41:56 - Institution: Case Times FTURO Entry 1 Patient Times In Room 12/03/23 14:15:00 Out Room 12/03/23 14:30:00 Procedure Times Start 12/03/23 14:21:00 Stop 12/03/23 14:23:00 Anesthesia Times Last Modified By: Neva Palacio 12/03/23 14:30:41 General Comments: BOTOX 100 UNITS EXP: LOT: [id number].GIORGIO MELENDEZ. Case Attendance FTURO Entry 1 Entry 2 Entry 3 Case Attendee Cayden ROBB MD, Kelsie E McClain MANAGER CULINARYKenisha Role Performed Surgeon - Primary Iv Rn - Primary Scrub - Primary Time In [...] Palacio 12/03/23 14:30 Neva Palacio 12/03/23 14:30 [facility] Main OR Preoperative Recordo n 12-03-2023 Main OR Preoperative Record Main OR Preoperative Record Holding Area Document Type FTURO Summary Primary Physician: Cayden ROBB MD Finalized Date/Time: 12/03/23 14:21:15 Pt. Name: AARON LEWIS/Sex: 1945 Female Med Rec #: [id number] Physician: Cayden ROBB MD Financial #: [id number] Pt. Type: O Room/Bed: / Admit/Disch: 12/03/23 [...] Complaints of Pain: No Skin Integrity Intact, [place], Warm, & Dry Vitals - EU Blood [...] 12/03/23 14:03 Neva Palacio 12/03/23 14:21 Normal [facility] Operative Reporton Operative Report Operative Report Patient: AARON LEWIS Age: 78 years Sex: Female : 1945 Associated Diagnoses: None Author: Cayden ROBB MD Procedure Operative Information Details: Date/ Time: 12/03/2023 14:28:00. Pre-Op Dx: Overactive bladder (BIN44-ZJ N32.81, Working, Medical). Post-Op Dx: Same. Anesthesia [...] about 3 weeks. Finish abx. . Normal [facility] Comment on above: Result Comment: Elec tronically Signed By: Cayden ROBB MD\.br\Date and Time Signed: 12/03/23 14:29 EDT Outpatient Surgery Discharge Instructionon 12-03-2023 Outpatient Surgery Discharge Instruction Outpatient Surgery Discharge Instruction [address] [address] Patient Discharge Instructions PERSON INFORMATION Name: AARON LEWIS Date of : 1945 Current Date: 12/03/2023 14:28:09 PHYSICIANS Admitting Physician: Cayden ROBB MD Comment: Discharge Diagnosis: AARON LEWIS has been given the following list of follow-up instructions, prescriptions, and patient education materials: IF UNABLE TO CONTACT YOUR PHYSICIAN AND YOU FEEL IT IS AN EMERGENCY, GO TO THE NEAREST EMERGENCY ROOM OR CALL 911 Follow up: With: Address: When: BRENDA MARIN [address] [place] [phone] [facility] (1) Comments: Call for followup appointment [...] You may receive a survey from [employer] asking you to rate your care experience. Your feedback is important and will help us understand what we do well and how we can improve the quality of care we provide to you, your loved ones and our community. It?s an honor to serve you. Thank you for choosing [facility] Normal [facility] Ambulatory Visit Summaryon 0 09-26-2023 Ambulatory Visit [...] w/ Where: [address] [place] [address] [phone] Medications What How Much When Instructions Unchanged [...] including vitamins, herbs, eye drops, creams, and crkg-gkk-fxdfrvm medicines. ? Any problems you or family [...] are or (more content not included)... Normal [facility] Patient Educationon 09-26-19 Patient Education Urology Botulinum [...] including vitamins, herbs, eye drops, creams, and fpro-hch-owolenc medicines. ? Any problems you or family [...] tells you to take them. ? Taking hpch-shi-klmhygr medicines, vitamins, herbs, and supplements. General instructions [...] these instructions at home: Medicines ? Take bsgg-qoh-itkuuky and prescription medicines only as told by [...] health ca (more content not included)... Normal [facility] Urology Office/Clinic Noteon 09-26-2023 Urology Office/Clinic Note [...] Contact Information MIAH ROE, BRENDA Poole, URL [address] [place] [address] [phone] Additional Instructions: flaquita Girard w/ Patient Education [...] tobacco c (more content not included)... Normal [facility] Comment on above: Result [...] Duration: 30 Days Refills: 11 Pickup at [facility]/pharmacy #[id number] New vibegron (Gemtesa 75 mg oral tablet) 1 Tablets By Mouth Every day Urethral stricture OAB (overactive bladder) Recurrent UTI Duration: 30 Days Refills: 11 Pickup at [facility]/pharmacy #[id number] Unchanged acetaminophen-oxycod one (acetaminophen-oxyco done [...] Capsules By Mouth Every day Pharmacy Information [facility]/pharmacy #[id number]: [address], [place] [phone] Allergies No Known Allergies Problems Ongoing - [...] you for choosing us for your care. [facility] Patient Educationon 08-28-19 Patient Education Obstetrics and [...] health care provider. General instructions ? Take wejv-uqh-gsyeuip and prescription medicines only as told by [...] monitor yo (more content not included)... Normal [facility] Urology Office/Clinic Noteon 08-28-2023 Urology Office/Clinic Note [...] day(s), # 30 tab(s), Refills(s) 11, Pharmacy: [facility]/pharmacy #[id number], 165, cm, 08/28/23 15:03:00 EDT, Height/Length Dosing, 90, kg, 08/28/23 15:03:00 EDT, Weight Dosing vibegron, 75 mg = 1 tab(s), Oral, Daily, X 30 day(s), # 30 tab(s), Refills(s) 11, [id number], 165, cm, 08/28/23 15:03:00 EDT, Height/Length Dosing, 90, kg, 08/28/23 15:03:00 EDT, Weight Dosing 01727 Measure Post Void residual urine and/or bladder capacity by US- non-imaging Body Mass Index (BMI) documented 3008F Complex E&M Add on G2211 Current tobacco non-user 1036F Depression Screening Negative 3352F E&M of Est. Patient Moderate 30-39 Min 92821 Influenza immunization status assessed 1030F Medication list [...] Urnls Dip Stick Auto w/o Microscopy POC 41425 2. Urethral stricture (N35.919: Unspecified urethral stricture, [...] day(s), # 30 tab(s), Refills(s) 11, [id number], 165, cm, 08/28/23 15:03:00 EDT, Height/Length Dosing, 90, kg, 08/28/23 15:03:00 EDT, Weight Dosing vibegron, 75 mg = 1 tab(s), Oral, Daily, X 30 day(s), # 30 tab(s), Refills(s) 11, Pharmacy: [facility]/pharmacy #[id number], 165, cm, 08/28/23 15:03:00 EDT, Height/Length Dosing, 90, kg, 08/28/23 15:03:00 EDT, Weight Dosing 99012 Measure Post Void residual urine and/or bladder capacity by US- non-imaging Body Mass Index (BMI) documented 3008F Complex E&M Add on G2211 Current tobacco non-user 1036F Depression Screening Negative 3352F E&M of Est. Patient Moderate 30-39 Min 52537 Influenza immunization status assessed 1030F Medication list [...] Coli, 50k Proteus (more content not included)... [facility] Comment on above: Result Comment: Elec tronically Signed By: BRENDA MARIN PA-C\.br\Date and Time Signed: 08/28/23 15:38 EDT Physician Orderon 08-02-2023 Physician Order [id number] #1.00TIFF [facility] Consent for Procedure/Surger yon 07-23-2023 Consent for Procedure/Surgery [id number] 4#1.00TIFF [facility] Consent for Treatmenton 07-12 Consent for Treatment [id number] 1#1.00TIFF [facility] Inpatient Patient Summaryon 07-23-2023 Inpatient Patient Summary [address], [place] [address] Clinical Summary Person Information Name: AARON LEWIS Age: 78 Years : 1945 Sex: Female PCP: JEREMIAH REED MD Marital Status: Phone: [phone] Race: White Ethnicity: Non- or Language: Stateless Visit Id: Visit Reason: URETHER STRICTURE AND RECURRENT UTI Speciality: Acuity: Enc Type: Outpatient Med Service: Surgery Arrival: 07/23/2023 13:44:06 Discharge: Dispo Type: Address: [address] [place] [address] [address] [place] [phone] Provider Notes: Diagnosis: Problems Active Recurrent UTI [...] Follow up: With: Address: When: BRENDA MARIN [address] [facility] [place] [phone] Business (1) Comments: Call for followup appointment with Georgette Marin PA-c within the next 2 months or so to monitor you. Please finish your antibiotics and have a great day. Patient Education Information: EU - Cystoscopy with Urethral Dilation Discharge Instructions (Custom) [facility] IntraOperative Documentson 0 07-23-2023 IntraOperative Documents [id number] 5#1.00TIFF [facility] Main OR Intraoperative Recor don 07-23-2023 Main OR Intraoperative Record IntraOp Document Type FTURO Summary Primary Physician: Cayden ROBB MD Finalized Date/Time: 07/23/23 14:33:02 Pt. Name: AARON LEWIS/Sex: 1945 Female Med Rec #: [id number] Physician: Cayden ROBB MD Financial #: [id number] Pt. Type: O Room/Bed: / Admit/Disch: 07/23/23 [...] Son Tellez Role Performed Surgeon - Primary Iv Rn - Primary Scrub - Primary Time In [...] By: Crissy Borja RN 07/23/23 14:33 Normal [facility] Main OR Preoperative Recordo n 07-23-2023 Main OR Preoperative Record Holding Area Document Type FTURO Summary Primary Physician: Cayden ROBB MD Finalized Date/Time: 07/23/23 14:14:06 Pt. Name: АННА AARONRANJITH Odom/Sex: 1945 Female Med Rec #: [id number] Physician: Cayden ROBB MD Financial #: [id number] Pt. Type: O Room/Bed: / Admit/Disch: 07/23/23 [...] JOSE Markham RN, Ruthann 07/23/23 14:14 Normal [facility] Operative Reporton Operative Report Patient: AARON LEWIS Age: 78 years Sex: Female : 1945 Associated Diagnoses: None Author: Cayden ROBB MD Procedure Operative Information Details: Date/ Time: 07/23/2023 14:29:00. Pre-Op Dx: Recurrent UTI (UQX79-VZ N39.0, Working, Medical), Unspecified urethral stricture, female (AXU25-QG N35.92, Working, Medical), Overactive bladder (ABG19-QH N32.81, Working, Medical). Post-Op Dx: Same. Anesthesia [...] urine. The Urethra was dilated to: 30 Chinese w/ sounds. Devices Implanted: None. Removal: Cystoscope is removed, The patient tolerated it well. Postoperative Information Discharge: Patient is discharged home with antibiotic coverage, Follow up arranged, F/U with Georgette Marin PA-C within the next 2-3 months. Monitor the urinary flow pattern. The goal is also to decrease UTI frequency. . Normal [facility] Comment on above: Result Comment: Elec tronically Signed By: Cayden ROBB MD\.br\Date and Time Signed: 07/23/23 14:30 EDT Outpatient Surgery Discharge Instructionon 07-23-2023 Outpatient Surgery Discharge Instruction [address] [address] Patient Discharge Instructions PERSON INFORMATION Name: AARON [...] Follow up: With: Address: When: BRENDA MARIN [address] [place] [phone] [facility] (1) Comments: Call for followup appointment [...] Date You may receive a survey from [employer] asking you to rate your care experience. Your feedback is important and will help us understand what we do well and how we can improve the quality of care we provide to you, your loved ones and our community. It?s an honor to serve you. Thank you for choosing [facility] Normal [facility] C Urineon 07-11-2023 Bacteria identified Cx Nom [...] performed at: [facility], [address] [place] [address], [address] , , Normal [facility] Comment on above: Performed By: #### 2 [id number] ####[facility] [address] [place] [address] Ambulatory Visit Summaryon 0 07-09-2023 Ambulatory Visit [...] Follow-Up Appointments Sunday 9:00 AM EST Where: [facility] Sunday 2:30 PM EDT Where: [facility] Medications What How [...] for choosing us for your care. Normal [facility] C Urineon 06-07-2023 Bacteria identified Cx Nom [...] performed at: [facility], [address] [place] [address], [address] , , [facility] Comment on above: Performed By: #### 2 [id number] #### [facility] Laboratory [address] [place] [address] Lab Reportson 06-06-2023 Lab Reports [id number] 7#1.00TIFF Normal [facility] Screenson 06-06-2023 Screens [id number]# 1.00TIFF Normal [facility] Ambulatory Visit Summaryon 0 06-05-2023 Ambulatory Visit [...] BERNAL, Cayden Hollins, URL When: Where: [address] [place] [address] Medications What How Much When Instructions [...] main (more content not included)... Normal [facility] Patient Educationon 06-05-19 Patient Education Urology Urethral [...] Follow these instructions at home: ? Take jhmm-avp-yzknjpv and prescription medicines only as told by [...] provider. Document Revised: 03/07/2022 Document Reviewed: 03/07/2022 [employer] Patient Education ? 2022 [employer] 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 Getting up 3-4x/night, every night. Denies current pain/burning and visible blood in urine. States she has had 2 UTI's since April. Was hospitalized back in March @ [facility] due to falling. (No C&S at [facility]) Also at [place]. C&S 03/24/23 *>100k E Coli & 50-60k [...] available) Was hospitalized back in March @ [facility] due to falling. (No C&S at [facility]) Also at [place]. UA today shows trace-intact blood, positive nitrates [...] evening fluids and reducing bladder irritants. Ordered: 74466 Measure Post Void residual urine and/or bladder [...] Urnls Dip Stick Auto w/o Microscopy POC 77399 Follow-up With When Contact Information CEZAR BERNAL, Cayden Hollins, URL [address] [address]- Additional Instructions: Schedule cysto/UD Patient Education Urethral Stricture Documentation recorded by the scribkarly Mantilla accurately reflects the services(s) I performed [...] 2 tab (more content not included)... Normal [facility] Comment on above: Result Comment: Elec tronically Signed By: BRENDA MARIN PA-C.br\Date and Time Signed: 06/05/23 17:59 EST\.br\Electronically Co-Signed By: Dori Mantilla.br\Date and Time Co-Signed: 06/05/23 13:35 EST Insurance Correspondence Off iceon 04-19-2023 Insurance Correspondence Office [id number] 8#1.00TIFF Normal [facility] Discharge Instructionson Discharge Instructions [id number] [facility] [id number] 8#1.00TIFF Normal [facility] Outside Recordson 04-14-2023 Outside Records [id number] 3#1.00TIFF Normal [facility] BMPon 04-13-2023 Anion gap [Moles/Vol] 14 mmol/L Normal 6-16 [facility] Comment on above: Performed By: #### 2 [id number], [id number], [id number] #### [facility] Laboratory [address] [place] [address] Calcium [Mass/Vol] 9.1 mg/dL Normal 8.9-11.1 [facility] Comment on above: Performed By: #### 2 598189, [id number], [id number] #### [facility] [address] [place] [address] Chloride [Moles/Vol] 114 mmol/L High 101-111 [facility] Comment on above: Performed By: #### 2 599964, [id number], [id number] #### [facility] [address] [place] [address] CO2 [Moles/Vol] 20 mmol/L Low 21-31 [facility] Comment on above: Performed By: #### 2 948833, [id number], [id number] #### [facility] [address] [place] [address] Creatinine [Mass/Vol] 1.2 mg/dL Normal 0.5-1.3 [facility] Comment on above: Performed By: #### 2 751820, [id number], [id number] #### [facility] [address] [place] [address] Glucose [Mass/Vol] 96 mg/dL Normal 55-199 [facility] Comment on above: Result Comment: If t his glucose result represents a fasting glucose, interpretation should refer to the following reference range: 55-99 mg/dL Performed By: #### 2 731715, [id number], [id number] #### [facility] [address] [place] [address] Potassium [Moles/Vol] 3.9 mmol/L Normal 3.5-5.3 [facility] Comment on above: Performed By: #### 2 894411, [id number], [id number] #### [facility] [address] [place] [address] Sodium [Moles/Vol] 144 mmol/L Normal 135-145 [facility] Comment on above: Performed By: #### 2 729032, [id number], [id number] #### [facility] [address] [place] [address] Urea nitrogen [Mass/Vol] 29 mg/dL High 5-21 [facility] Comment on above: Performed By: #### 2 584959, 7567310, [id number] #### [facility] [address] [place] [address] Urea nitrogen/Creatinine [Mass ratio] 24 No Units High 10-20 [facility] Comment on above: Performed By: #### 2 495722, 6310147, [id number] #### [facility] [address] [place] [address] CHEMISTRYOrdered By: SYSTEM SYSTEM on 04-13-2023 Anion gap [Moles/Vol] 14 mmol/L Normal 6 - 16 mEq/L F [facility] Remisol Calcium [Mass/Vol] 9.1 mg/dL Normal 8.9 - 11. 1 mg/dL [facility] Remisol Chloride [Moles/Vol] 114 [...] 1.2 mg/dL Normal 0.5 - 1.3 mg/dL [facility] Remisol GFR/1.73 sq M.predicted among non-blacks MDRD (S/P/Bld) [Vol rate/Area] 47 mL/min/1.73 m2 Low >=59mL/min/[address] [facility] Chem S Comment on above: Interpretive Data: C hronic kidney disease could be indicated at eGFR's of less than 60 mL/min/1.73m2. Kidney failure is indicated at less than 15 mL/min/1.73m2. Glucose [Mass/Vol] 96 mg/dL Normal 55 - 199 mg/dL [facility] Remisol Comment on above: Interpretive Data: I f this glucose result represents a fasting glucose, interpretation should refer to the following reference range: 55-99 mg/dL Potassium [Moles/Vol] 3.9 mmol/L Normal 3.5 - 5.3 mmol/L [facility] Remisol Sodium [Moles/Vol] 144 mmol/L Normal 135 - 145 mmol/L FT Remisol Triglyceride [Mass/Vol] 106 mg/dL Normal <=149mg/dL F [facility] Remisol Urea nitrogen [Mass/Vol] 29 mg/dL High 5 - 21 mg/dL [facility] Remisol Urea nitrogen/Creatinine [Mass ratio] 24 mg/mg High 10 - 20 FT Remisol Discharge Note-Nursingon Discharge Note-Nursing AARON LEWIS :1945 Visit Date:04/12/2023 Inpatient Discharge Instructions Your [...] oral tablet) glucosamine oxymetazoline nasal (Afrin 0.05% [place]) Procedure History Cystourethroscopy with dilation of urethral [...] Pending Diagnostic Test Results None Pharmacy Information [facility] Discharge Instructions Follow up appts as writtenNo driving until cleared by PCP or neuroTake all medications as ordered, monitor prn medication use Previously Scheduled Follow-Up Appointments Sunday 1:00 PM EST With: MIAH ROE, BRENDA Poole Where: [facility] Normal [facility] Inpatient Clinical Summaryon 04-13-2023 Inpatient Clinical Summary [address] [address] Clinical Summary Person Information: Name: AARON LEWIS Age: 78 Years : 1945 Sex: Female PCP: JEREMIAH REED MD Marital Status: Race: White Ethnicity: Non- or Language: Stateless Visit Id: Visit Reason: Altered mental status; AMS Speciality: Acuity: Enc Type: Observation Med Service: Medical Arrival: 04/12/2023 12:15:14 Discharge: Dispo Type: Admitted as IP to this Hosp Address: [address] [place] [address] DR TERRAZAS [place] [id number] Provider Notes: Diagnosis: 1:AMS (altered mental status); [...] Follow up: With: Address: When: Johnnie BERNAL, Ehsan[address] [address] Within 1 to 2 weeks Comments: This office is closed on Fridays. Please call the office on Sunday April 16, 2023 for a follow up appiontment. Thank you. With: Address: When: JEREMIAH REED [address] [place] [address] [facility] (1) Within 2 to 4 days Comments: Call for followup appointment With: Address: When: [facility] Comments: Call for followup appointment for anxiety/depression care. Type Location Start [facility] Office Visit [facility] 06/05/2023 1:00 PM 06/05/2023 1:15 PM Confirmed Patient Education Information: Confusion aspirin Normal [facility] Inpatient Patient Summaryon 04-13-2023 Inpatient Patient Summary [address] [address] Patient Discharge Instructions PERSON INFORMATION Name: SENIA LEIWSTHIA Flori Date of : 1945 Current Date: [...] With: Address: When: Johnnie BERNAL, ALPHONSE Choi [address] [address] Within 1 to 2 weeks Comments: This office is closed on Fridays. Please call the office on Sunday April 16, 2023 for a follow up appiontment. Thank you. With: Address: When: JEREMIAH REED [address] [place] [address] [facility] ([email or web address] Within 2 to 4 days Comments: Call for followup appointment With: Address: When: [facility] Comments: Call for followup appointment for anxiety/depression care. In the event that this physician does not participate in your insurance network, please consult with your insurance company to find a nearby participating provider. Type Location Start [facility] Office Visit [facility] 06/05/2023 1:00 PM 06/05/2023 1:15 PM Confirmed [...] 2 adán (more content not included)... 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 Pending Neurology to see and pending MRI. Pending therapy evals, Observation status reviewed [facility] form reviewed, signed by pt and original provided. PT is independent from home, family at bedside and will transport at [place], Declines any concerns or anticipate DC needs. . PCP verified and insurance information reviewed and DME discussed. Contact information provided and white board updated. CRM returned to pt room to discuss DC plans. PT= HH and pt is agreeable to HH at [place], prefers to use [facility] as she has used in past, referral to resource center, anticipate DC home today. Nursing and CARROT BUNCHER updated. Normal [facility] Comment on above: Result Comment: Elec tronically Signed By: Thu ALVARES, Sallie\.mario\Date and Time Signed: 04/13/23 12:17 EST Interdisciplinary Note - Ahsly n 04-13-2023 Interdisciplinary Note - OT OT [facility] six clicks score = no further OT needs. Patient requires Dist sup w/ transfers. completes Adls w/ dist sup after set up. Dc inpatient OT services as pt appears close to baseline status and has all bathroom dme already in place at home. Normal [facility] Interdisciplinary Note - Soc ial Workeron 04-13-2023 Interdisciplinary Note - Electrical Electronics Engineers This SW met with patient today to [...] any substances. SW will remain available. Normal [facility] Lipid Panelon 04-13-2023 Cholesterol [Mass/Vol] 164 mg/dL Normal 120-[address] [facility] Comment on above: Performed By: #### 2 343602, 2925900, [id number] #### [facility] [address] [place] [address] Cholesterol in HDL [Mass/Vol] 62 mg/dL Invalid Interpretation Code [facility] Comment on above: Result Comment: HDL > or equal to 60 mg/dL: Low cardiovascular risk HDL < 40 mg/dL : High cardiovascular risk Performed By: #### 2 337778, 3669324, 35299125 #### [facility] [address] [place] [address] Cholesterol in LDL [Mass/Vol] 73 mg/dL Normal <=129 [facility] Comment on above: Performed By: #### 2 125145, 9114306, 16235103 #### [facility] [address] [place] [address] Cholesterol in VLDL [Mass/Vol] 21 mg/dL Normal 7-40 [facility] Comment on above: Performed By: #### 2 750766, 2455500, 40519449 #### [facility] [address] [place] [address] Triglyceride [Mass/Vol] 106 mg/dL Normal <=149 F [facility] Comment on above: Performed By: #### 2 856433, 8476206, 58663110 #### [facility] [address] [place] [address] MRI Brain w/o Contraston MRI Brain w/o [...] LESLEY Technologist: MAXI Technical Comments None Normal [facility] Message from Medicareon 12 Message from Medicare [id number] 20 [id number] #1.00TIFF Normal [facility] Monitor Recordon 04-13-2023 Monitor Record [id number] 6#1.00TIFF Normal [facility] Monitor Record [id number] 8#1.00TIFF Normal [facility] eGFRon 04-13-2023 GFR/1.73 sq M.predicted among non-blacks MDRD (S/P/Bld) [Vol rate/Area] 47 mL/min/1.73 m2 Low >=59 [facility] Comment on above: Order Comment: Order added by Discern Expert. 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 Kidney failure is indicated at less than 15 mL/min/1.73m2. Performed By: #### 2 904041, 2088782, 37905445 #### [facility] [address] [place] [address] Auto Diffon 04-12-2023 Basophils/100 WBC (Bld) 0.4 % Normal 0.0-2.0 F [facility] Comment on above: Order Comment: Order Added by Discern Expert. Performed By: #### 2 140849, 89711115, 1968959, 12353779, 9402610, 80395187, 447719031, 58316524, 7456674, 8319365, 7957885, 8748631 ####[facility] [address] [place] [address] Basophils/Leukocytes Auto (Bld) [Pure # fraction] 0.1 E9/L Normal 0.0-0.2 [facility] Comment on above: Order Comment: Order Added by Discern Expert. Performed By: #### 2 736852, 34419887, 1479149, 01865995, 6457157, 84081073, 708385264, 60905890, 2500807, 2141222, 1249418, 6185472 ####[facility] [address] [place] [address] Eosinophils/100 WBC (Bld) 0.1 % Normal 0.0-8.0 [facility] Comment on above: Order Comment: Order Added by Discern Expert. Performed By: #### 2 087950, 10885122, 5651675, 56002325, 4428725, 65653411, 133223699, 89084501, 8304467, 3525879, 0416614, 7134687 ####[facility] [address] [place] [address] Eosinophils/Leukocytes Auto (Bld) [Pure # fraction] 0.0 E9/L Normal 0.0-0.5 [facility] Comment on above: Order Comment: Order Added by Discern Expert. Performed By: #### 2 650060, 03403462, 0942218, 69006241, 5982628, 88384997, 463412691, 52569139, 6287992, 8243722, 0133301, 4847869 ####[facility] [address] [place] [address] Lymphocytes/100 WBC (Bld) 9.7 % Low 14.0-50.0 [facility] Comment on above: Order Comment: Order Added by Discern Expert. Performed By: #### 2 852210, 26338697, 3640306, 93216808, 3376764, 02099884, 335920417, 91732179, 5926098, 1455400, 4651352, 7046922 ####[facility] [address] [place] [address] Lymphocytes/Leukocytes Auto (Bld) [Pure # fraction] 1.5 E9/L Normal 1.0-4.0 [facility] Comment on above: Order Comment: Order Added by Discern Expert. Performed By: #### 2 739643, 12770635, 1140210, 53449460, 3114359, 60568532, 981643025, 98754142, 9308650, 2815587, 2903656, 9655164 ####[facility] [address] [place] [address] Monocytes/100 WBC (Bld) 7.8 % Normal 4.0-14.0 [facility] Comment on above: Order Comment: Order Added by Discern Expert. Performed By: #### 2 064422, 69455470, 4508377, 14153367, 9178724, 50776206, 280206647, 32366463, 7023610, 4184533, 4111897, 7406808 ####[address] [place] [address] Monocytes/Leukocytes Auto (Bld) [Pure # fraction] 1.2 E9/L High 0.2-1.0 [facility] Comment on above: Order Comment: Order Added by Discern Expert. Performed By: #### 2 750628, 76184909, 7519868, 01709998, 2008516, 66621880, 290184958, 88532820, 6431972, 5030731, 9971491, 7987544 ####[facility] [address] [place] [address] Neutrophils/100 WBC (Bld) 82.0 % High 36.0-75.0 [facility] Comment on above: Order Comment: Order Added by Discern Expert. Performed By: #### 2 220746, 91734557, 2497408, 51033387, 8754989, 68544371, 768454798, 32851017, 6671871, 5543234, 7058904, 0684328 ####[facility] [address] [place] [address] Neutrophils/Leukocytes Auto (Bld) [Pure # fraction] 12.4 E9/L High 2.0-7.5 [facility] Comment on above: Order Comment: Order Added by Discern Expert. Performed By: #### 2 967969, 86831072, 7298404, 56735790, 2710339, 45219570, 254282970, 49444485, 1314229, 4599841, 7023874, 0425624 ####[facility] [address] [place] [address] BMPon 04-12-2023 Creatinine [Mass/Vol] 1.8 mg/dL High 0.5-1.3 [facility] Comment on above: Performed By: #### 2 700820, 79511215, 4608186, 39891041, 4069321, 52455389, 704100003, 86480085, 8087321, 7774531, 0697638, 8716173 ####[facility] [address] [place] [address] Urea nitrogen [Mass/Vol] 39 mg/dL High 5-21 [facility] Comment on above: Performed By: #### 2 102778, 16447514, 9135385, 11483636, 0903642, 77541399, 162978499, 58555550, 1773874, 2144207, 6373036, 7668982 ####[facility] [address] [place] [address] Urea nitrogen/Creatinine [Mass ratio] 22 No Units High 10-20 [facility] Comment on above: Performed By: #### 2 182088, 61850911, 4107437, 93063628, 2651455, 86806667, 458212498, 98313370, 9027775, 0314821, 0574857, 4536398 ####[facility] [address] [place] [address] Anion gap [Moles/Vol] 16 mmol/L Normal 6-16 [facility] Comment on above: Performed By: #### 2 288581, 55363583, 4916958, 65425330, 6146387, 91694114, 427597776, 85010469, 3689966, 3855178, 9487287, 8783455 ####[facility] [address] [place] [address] Calcium [Mass/Vol] 10.0 mg/dL Normal 8.9-11.1 [facility] Comment on above: Performed By: #### 2 273092, 93714036, 0889392, 03767538, 7658731, 48182049, 724513932, 36723479, 6794569, 6466068, 2422385, 1980359 ####[facility] [address] [place] [address] Chloride [Moles/Vol] 109 mmol/L Normal 101-111 [facility] Comment on above: Performed By: #### 2 951251, 59216289, 3239864, 31372098, 1973920, 59988935, 624341699, 43081705, 0165343, 8693034, 4012818, 7096576 ####[facility] [address] [place] [address] CO2 [Moles/Vol] 23 mmol/L Normal 21-31 [facility] Comment on above: Performed By: #### 2 127040, 12326186, 1122939, 94285328, 4702886, 77448220, 784717238, 94498311, 4485238, 6021153, 3609983, 4486670 ####[facility] [address] [place] [address] Glucose [Mass/Vol] 89 mg/dL Normal 55-199 [facility] Comment on above: Result Comment: If t his glucose result represents a fasting glucose, interpretation should refer to the following reference range: 55-99 mg/dL Performed By: #### 2 066928, 38369508, 8772802, 58455786, 1446908, 48807865, 286481120, 04864518, 7937141, 9069439, 9474333, 6512452 ####[facility] [address] [place] [address] Potassium [Moles/Vol] 4.3 mmol/L Normal 3.5-5.3 [facility] Comment on above: Performed By: #### 2 510471, 71940775, 4469655, 37102089, 7126155, 25977526, 923032386, 30033996, 0123710, 9481424, 5502302, 2997921 ####[facility] [address] [place] [address] Sodium [Moles/Vol] 144 mmol/L Normal 135-145 [facility] Comment on above: Performed By: #### 2 575809, 93596359, 1814614, 24144413, 2067390, 33426291, 143377185, 80351630, 2562983, 5134836, 0375149, 2451371 ####[facility] [address] [place] [address] CBC w/ Auto Diffon 3 Erythrocyte distribution width (RBC) [Ratio] 15.3 % High 10.9-14.2 [facility] Comment on above: Performed By: #### 2 121120, 16609366, 0901090, 09331532, 8753707, 54052182, 912274984, 10139749, 5236876, 2602562, 5492982, 5460550 ####[facility] [address] [place] [address] Hematocrit (Bld) [Volume fraction] 44.4 % Normal 34.0-46.0 [facility] Comment on above: Performed By: #### 2 991950, 03727480, 3554549, 17459992, 3468365, 98548576, 210348805, 10418309, 4432631, 3537636, 8301965, 7911935 ####[facility] [address] [place] [address] Hemoglobin (Bld) [Mass/Vol] 14.0 g/dL Normal 12.0-16.0 [facility] Comment on above: Performed By: #### 2 870280, 08259735, 2800888, 01272946, 6475503, 11635028, 281179762, 72544119, 4998684, 7227529, 1477454, 2678270 ####[facility] [address] [place] [address] MCH (RBC) [Entitic mass] 28.5 pg Normal 27.0-34.0 [facility] Comment on above: Performed By: #### 2 473889, 51898467, 5995725, 87451504, 4370419, 03086762, 977466883, 17442450, 3274093, 6281874, 8242637, 3690064 ####[address] [address] MCHC (RBC) [Mass/Vol] 31.6 g/dL Normal 31.4-36.0 [facility] Comment on above: Performed By: #### 2 742063, 75224643, 7224044, 16400000, 3689128, 15786748, 878570318, 12904724, 1730312, 4866564, 3287485, 4171512 ####[address] [place] [address] MCV (RBC) [Entitic vol] 89.9 fL Normal 80.0-100.0 F [facility] Comment on above: Performed By: #### 2 967755, 30837009, 5002114, 52099326, 9932090, 81752709, 552211504, 42403115, 9668999, 5322981, 9981814, 8287972 ####[address] [place] [address] Platelet mean volume (Bld) [Entitic vol] 9.8 fL Normal 6.4-10.8 [facility] Comment on above: Performed By: #### 2 827084, 91169051, 6086737, 48463688, 1884843, 90255599, 821723082, 33192159, 3540021, 2849138, 1332014, 6877616 ####[facility] [address] [place] [address] Platelets (Bld) [#/Vol] 285.0 E9/L Normal 150.0-500.0 [facility] Comment on above: Performed By: #### 2 963816, 93812446, 8994061, 63268958, 3774569, 57705088, 671550388, 41874497, 0032476, 4879190, 9032639, 8281661 ####[facility] [address] [place] [address] RBC (Bld) [#/Vol] 4.9 E12/L Normal 4.3-5.9 [facility] Comment on above: Performed By: #### 2 886506, 67166647, 0529789, 23921979, 6016059, 88709423, 209347005, 60406096, 0234392, 0659097, 4020496, 6127033 ####[facility] [address] [place] [address] WBC corrected for nucl RBC Auto (Bld) [#/Vol] 15.1 E9/L High 4.0-11.0 [facility] Comment on above: Performed By: #### 2 594573, 19930317, 2080257, 70825311, 3100106, 85538389, 891010953, 95360261, 8758006, 8293639, 4419789, 7384155 ####[facility] [address] [place] [address] CHEMISTRYOrdered By: SYSTEM SYSTEM on 04-12-2023 Amphetamines [...] ratio] 22 mg/mg High 10 - [address] [facility] Remisol CHEMISTRYOrdered By: Shauna kendall on 04-12-2023 HbA1c (Bld) [Mass fraction] 5.9 % Normal <=5.9% [facility] ChemAutoSS CHEMISTRYOrdered By: Lab ROP User on 04-12-2023 Glucose [Mass/Vol] 88 mg/dL Normal 55 - 99 mg/dL [facility] POC Subsection Comment on above: Result Comment: Jose matos RN/ POC Username [place] Invalid Interpretation Code [facility] POC Subsection Sodium [Moles/Vol] [id number] mmol/L Invalid Interpretation Code [facility] POC Subsection Sodium [Moles/Vol] 193195136 mmol/L Invalid Interpretation Code [facility] POC Subsection COAGULATIONOrdered By: Myra Grayson on 04-12-2023 aPTT Coag (PPP) [Time] 29.5 s Normal 25.1 - 36.5 second(s) [facility] Auto Coag Comment [...] the same coagulation reagent and instrumentation as [facility]. Currently there are no coagulation studies available worldwide for children to 14 days, and no normal ranges. Heparin therapeutic range (represented by Anti-Factor Xa activity of 0.2 - 0.4 U/mL) corresponds to PTT of 56.6 - 109.0 sec. INR Coag (PPP) [Relative time] 0.9 {INR} Invalid Interpretation Code [facility] Auto Coag Comment on above: Interpretive Data: I NR results are specifically intended to assess patients stabilized on long-term Anticoagulation therapy suggested INR s Less Intensive Anticoagulation 2.0 3.0 Conventional Range 3.0 4.5 PT Coag (PPP) [Time] 10.4 s Normal 9.4 - 1 2.5 second(s) [facility] Auto Coag Comment [...] the same coagulation reagent and instrumentation as [facility]. Currently there are [...] MD Transcribed by: LESLEY Technologist: SOFIA Guaman [facility] CT Spine Cervical w/o Contra ston [...] MD Transcribed by: DP Technologist: NMP Normal [facility] Capillary Glucose POCon 03-16 Glucose [Mass/Vol] 88 mg/dL Normal 55-99 [facility] Comment on above: Result Comment: Jose matos RN/ Performed By: #### 2 [id number] #### [facility] [address] [place] [address] Consent for Treatmenton 03-16 Consent for Treatment [id number] #1.00TIFF Normal [facility] ED Clinical Summaryon 2022 ED Clinical Summary [address] [address] ED Clinical Summary Person Information Name: AARON LEWIS [facility] Age: 78 Years : 1945 Sex: Female Language: Stateless PCP: JEREMIAH REED MD Marital Status: Visit Id: Visit Reason: Altered mental status; AMS Speciality: Acuity: 2 Enc Type: Observation Med Service: Emergency Arrival: 04/12/2023 12:15:14 Discharge: LOS: 000 04:45 Checkin: 04/12/2023 12:15:14 Checkout: 04/12/2023 17:00:36 Dispo Type: Admitted as IP to this [facility] EVENTS: Event Name Event Status Request [...] Labs Collected 04/12/2023 16:57:50 04/12/2023 16:57:50 ADDRESS: [facility] [place] [id number] PHYS DOC NOTES: MEDICAL INFORMATION: Prescriptions Given: [...] vein thrombosis (DVT) prophylaxis; Depression, unspecified Normal [facility] ED Note-Physicianon 04-12-20 ED Note-Physician Basic Information [...] had a urinary tract infection diagnosed at [place] for which she is on antibiotics. 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 Normal [facility] Comment on above: Result Comment: Elec tronically Signed By: Abran Holguin DO\.br\Date and Time Signed: 04/12/23 22:13 EST ED Patient Education Noteon 04-12-2023 ED Patient Education Note Normal [facility] ED Patient Summaryon 023 ED Patient Summary [id number] Patient Discharge Instructions Person Information Name: AARON LEWIS Age: 78 Years Arrival Date: 04/12/2023 12:15:14 Discharge Diagnosis: 1:AMS (altered mental status); 2:Elevated serum creatinine; 3:HTN (hypertension); 4:Anxiety and depression; 5:Peripheral neuropathy; 6:Chronic GERD; 7:OAB (overactive bladder); 8:Obesity; 9:On deep vein thrombosis (DVT) prophylaxis; Depression, unspecified Primary Care Physician: JEREMIAH REED MD Provider Information Primary Provider: Abran Holguin DO Advanced Ski Patrol:None The exam and treatment you received in the Emergency Department were for an urgent problem and are not intended as complete care. It is important that you follow up with a doctor, nurse practitioner, or physician?s vet assistant for ongoing care. If your symptoms [...] opioids can be used to help relieve agswvion-ml-zijabt pain and are often prescribed following a [...] be struggling with addiction, tell your health account executive healthcare and ask for guidance or (more content not included)... Normal [facility] Ethanolon 04-12-2023 Ethanol [Mass/Vol] mg/dL Normal <=7 [facility] Comment on above: Performed By: #### 2 005951 #### [facility] [address] [place] [address] Folateon 04-12-2023 Folate [Mass/Vol] ng/mL Normal >=6.7 [facility] Comment on above: Performed By: #### 2 600857 #### [facility] [address] [place] [address] HEMATOLOGYOrdered By: SYSTEM SYSTEM on 04-12-2023 Basophils/100 [...] 04-12-2023 Albumin [Mass/Vol] 4.4 g/dL Normal 3.3-5.0 [facility] Comment on above: Performed By: #### 2 604099, 24620518, 5947363, 81825015, 8864954, 17961624, 026963748, 05195340, 7918546, 1893594, 8378965, 1927726 ####[facility] [address] [place] [address] Albumin/Globulin (S) [Mass conc ratio] 1.3 Normal 1.1-2.2 [facility] Comment on above: Performed By: #### 2 296589, 82302419, 3023770, 11437519, 5571960, 39778157, 658450181, 55659907, 4447875, 3874041, 6570720, 3211891 ####[facility] [address] [place] [address] ALP [Catalytic activity/Vol] 78 Int._Unit/L Normal 21-98 [facility] Comment on above: Performed By: #### 2 209431, 03876403, 4533920, 33883103, 6106270, 06465755, 200660830, 18503758, 2360187, 0782947, 5411746, 0418512 ####[facility] [address] [place] [address] ALT No additional P-5'-P [Catalytic activity/Vol] 22 Int._Unit/L Normal 6-46 [facility] Comment on above: Performed By: #### 2 852903, 77343231, 3004805, 00673520, 3316542, 75466512, 434267941, 89617586, 9090343, 4510362, 4381865, 9445749 ####[facility] [address] [place] [address] AST [Catalytic activity/Vol] 25 Int._Unit/L Normal 5-43 [facility] Comment on above: Performed By: #### 2 802352, 41269466, 2741734, 52754553, 9835695, 63983496, 145054026, 07657959, 5499342, 0430696, 5425168, 5627072 ####[facility] [address] [place] [address] Bilirubin [Mass/Vol] 0.7 mg/dL Normal 0.0-1.1 [facility] Comment on above: Performed By: #### 2 896463, 24359517, 7808386, 25271120, 2521032, 60877835, 761370978, 70803863, 5484915, 6110402, 9324529, 9746945 ####[facility] [address] [place] [address] Bilirubin.direct [Mass/Vol] 0.1 mg/dL Normal 0.1-0.4 [facility] Comment on above: Performed By: #### 2 948331, 01267375, 5640971, 01273898, 0275388, 31947708, 306404710, 44243133, 5185993, 4964382, 5561787, 5917823 ####[facility] [address] [place] [address] Bilirubin.indirect [Mass or moles/Vol] 0.6 mg/dL Normal 0.1-0.9 [facility] Comment on above: Performed By: #### 2 171757, 39538124, 7606568, 04737017, 3877044, 90674708, 191902540, 65880009, 0267678, 0542263, 9412881, 6617599 ####[address] [place] [address] Globulin (S) [Mass/Vol] 3.3 g/dL Normal 1.4-4.0 [facility] Comment on above: Performed By: #### 2 665056, 66250644, 5665502, 52841441, 6271822, 64637464, 842720250, 91012647, 2345000, 9309135, 3029761, 4831385 ####[facility] [address] [place] [address] Protein [Mass/Vol] 7.7 g/dL Normal 6.0-7.8 [facility] Comment on above: Performed By: #### 2 230199, 93974778, 8455887, 08966695, 8346733, 80074698, 504470042, 81152172, 5763276, 5519784, 6244110, 9965118 ####[facility] [address] [place] [address] KsmW5jwx 04-12-2023 HbA1c (Bld) [Mass fraction] 5.9 % Normal <=5.9 [facility] Comment on above: Performed By: #### 2 288908 #### [facility] [address] [place] [address] Magnesiumon 04-12-2023 Magnesium [Mass/Vol] 2.0 mg/dL Normal 1.3-2.4 [facility] Comment on above: Performed By: #### 2 901154 #### [facility] [address] [place] [address] Monitor Recordon 04-12-2023 Monitor Record [id number] 0#1.00TIFF Normal [facility] Monitor Record [id number] 24#1.00TIFF Normal [facility] PT & PTTon 04-12-2023 aPTT Coag (PPP) [Time] 29.5 second(s) Normal 25.1-36.5 [facility] Comment on above: Result Comment: Para [...] the same coagulation reagent and instrumentation as [facility]. Currently there are no coagulation studies available worldwide for children to 14 days, and no normal ranges. Heparin therapeutic range (represented by Anti-Factor Xa activity of 0.2 - 0.4 U/mL) corresponds to PTT of 56.6 - 109.0 sec. Performed By: #### 2 965084, 14551212, 0738707, 08371725, 3934910, 01217535, 203994964, 82778455, 1714905, 6157988, 5877953, 4683579 ####[facility] [address] [place] [address] INR Coag (PPP) [Relative time] 0.9 {INR} Invalid Interpretation Code [facility] Comment on above: Result Comment: INR results are specifically intended to assess patients stabilized on long-term Anticoagulation therapy suggested INR?s ?Less Intensive Anticoagulation? 2.0 ? 3.0 Conventional Range 3.0 ? 4.5 Performed By: #### 2 527982, 58238648, 5917060, 75103795, 0532131, 20709636, 752105021, 75844714, 9786325, 8275006, 5661234, 3325040 ####[facility] [address] [place] [address] PT Coag (PPP) [Time] 10.4 second(s) Normal 9.4-12.5 [facility] Comment on above: Result Comment: 15 [...] the same coagulation reagent and instrumentation as [facility]. Currently there are no coagulation studies available worldwide for children to 14 days, and no normal ranges. Performed By: #### 2 682100, 96386224, 1417970, 85566435, 5370078, 10026416, 492746750, 37189779, 0631479, 4361714, 2706788, 4193936 ####[facility] [address] [place] [address] Pre-Arrival Noteon 3 Pre-Arrival Note Pre-Arrival Summary Name: , Current Date: 04/12/2023 12:18:15 EST Gender: Female Date of : Age: 88 Pre-Arrival Type: EMS ETA: 04/12/2023 12:29:00 EST Primary Care Physician: Presenting Problem: altered mental status Pre-Arrival User: Paul ALVARES, Brenda Talbert Referring Source: Location: Completion Date/Time: 04/12/2023 11:59:00 [facility] Emergency Department Pre-Hospital Report Form Vital Signs: Pre-Hospital Report: Treatment in Route: Response to Treatment: Misc. Issues: Normal [facility] RAD - MRI Screening Formon 1 06-12-2022 RAD - MRI Screening Form [id number] 7#1.00TIFF Normal [facility] TSH With T4fr Reflexon 04-12 TSH Qn 0.52 m[IU]/L Normal 0.34-5.60 [facility] Comment on above: Performed By: #### 2 081361 #### [facility] [address] [place] [address] Troponin 0 Hr.on 04-12-2023 Troponin I.cardiac [Mass/Vol] 11.90 pg/mL Normal 10.10-27.10 [facility] Comment on above: Order Comment: per yoshi LINTON RN is drawing labs and sending [id number] 04/12/2023 12:26:28 EST Result Comment: The 95% CI (Confidence Interval) PPV (Positive Predictive Value) for myocardial infarction in females is 38 pg/mL, in males 51 pg/mL. The results should be used in conjunction with clinical conditions of myocardial infarction. (Access High Sensitivity Troponin I Instructions For Use, Laly Jonathan, December 2017) Performed By: #### 2 579490, 11947901, 6627762, 56322001, 3988693, 55735803, 417115535, 25822352, 0359151, 2367755, 2699038, 0314486 ####[facility] [address] [place] [address] U Drug Screenon 04-12-2023 Benzodiazepines Ql (U) Positive Abnormal Negative Fi [facility] Comment on above: Result Comment: Crit ical Result UD_BENZ:POS Called to ABRAN HOLGUIN AT ER by URSULA LOZANO And Read Back For Confirmation at: 04/12/2023 15:35:32\Unconfirmed by alternate method\Results verified by repeat analysis\No confirmation requested by Physicmarie Negative Cutoff: <200 ng/mL Performed By: #### 2 738462 #### [facility] [address] [place] [address] Amphetamines Screen method >1000 ng/mL Ql (U) Negative Normal Negative [facility] Comment on above: Result Comment: Nega tive Cutoff: <1000 ng/mL Performed By: #### 2 316396 #### [facility] [address] [place] [address] Barbiturates Screen Ql (U) Negative Normal Negative [facility] Comment on above: Result Comment: Nega tive Cutoff: <200 ng/mL Performed By: #### 2 132687 #### [facility] [address] [place] [address] Cocaine Ql (U) Negative Normal Negative [facility] Comment on above: Result Comment: Nega tive Cutoff: <300 ng/mL Performed By: #### 2 624719 #### [facility] [address] [place] [address] Opiates Screen Ql (U) Negative Normal Negative [facility] Comment on above: Result Comment: Nega tive Cutoff: <300 ng/mL Performed By: #### 2 214364 #### [facility] [address] [place] [address] Phencyclidine Screen method >25 ng/mL Ql (U) Negative Normal Negative [facility] Comment on above: Result Comment: Nega tive Cutoff: <25 ng/mL These drug screen results are to be used for medical (i.e., treatment) purposes only. Unconfirmed drug screening results must not be used for non-medical purposes (e.g., employment testing, legal testing). Performed By: #### 2 726321 #### [facility] [address] [place] [address] Tetrahydrocannabinol Screen method >50 ng/mL Ql (U) Negative Normal Negative [facility] Comment on above: Result Comment: Nega tive Cutoff: <50 ng/mL Performed By: #### 2 684927 #### [facility] [address] [place] [address] UA With Cult Reflexon 2022 Bacteria LM Ql (Urine sed) TRACE Normal Trace [facility] Comment on above: Performed By: #### 1 2934465 #### [facility] [address] [place] [address] Bilirubin Ql (U) Negative Normal Negative [facility] Comment on above: Performed By: #### 1 7505775 #### [facility] [address] [place] [address] Clarity (U) CLEAR Normal Clear [facility] Comment on above: Performed By: #### 1 1811593 #### [facility] [address] [place] [address] Color (U) YELLOW Normal Yellow [facility] Comment on above: Performed By: #### 1 2448544 #### [facility] [address] [place] [address] Epithelial cells.squamous LM.HPF (Urine sed) [#/Area] 0-2 Normal 0-2 [facility] Comment on above: Performed By: #### 1 0459794 #### [facility] [address] [place] [address] Glucose Test strip (U) [Mass/Vol] Negative Normal Negative [facility] Comment on above: Performed By: #### 1 0632409 #### [facility] [address] [place] [address] Hemoglobin Ql (U) Negative Normal Negative [facility] Comment on above: Performed By: #### 1 7105082 #### [facility] [address] [place] [address] Ketones (U) [Mass/Vol] TRACE Abnormal Negative [facility] Comment on above: Performed By: #### 1 8612552 #### [facility] [address] [place] [address] [place].plasma/[place]. RBC (Bld) [Mass ratio] 0-3 Normal 0-3 [facility] Comment on above: Performed By: #### 1 0328657 #### [facility] [address] [place] [address] Mucus Ql (Urine sed) TRACE Normal [facility] Comment on above: Performed By: #### 1 4049058 #### [facility] [address] [place] [address] Nitrite Ql (U) Negative Normal Negative [facility] Comment on above: Performed By: #### 1 9858150 #### [facility] [address] [place] [address] pH (U) 5.0 [pH] Invalid Interpretation Code 5.0-9.0 [facility] Comment on above: Performed By: #### 1 7226872 #### [facility] [address] [place] [address] Protein (U) [Mass/Vol] TRACE Abnormal Negative [facility] Comment on above: Performed By: #### 1 4377152 #### [facility] [address] [place] [address] Specific gravity (U) [Rel density] >=1.030 Invalid Interpretation Code 1.005-1.030 [facility] Comment on above: Performed By: #### 1 4780073 #### [facility] [address] [place] [address] Type of Urine collection method Catheter Normal [facility] Comment on above: Performed By: #### 1 5901944 #### [facility] [address] [place] [address] Urobilinogen Qn (U) 0.2 {Nevaeh'U}/dL Normal 0.0-1.0 [facility] Comment on above: Performed By: #### 1 5013536 #### [facility] [address] [place] [address] WBC Auto Ql (U) Negative Normal Negative [facility] Comment on above: Performed By: #### 1 2166534 #### [facility] [address] [place] [address] WBC casts LM.LPF (Urine sed) [#/Area] 0-3 Normal [facility] Comment on above: Performed By: #### 1 4528062 #### [facility] [address] [place] [address] WBC LM.HPF (Urine sed) [#/Area] 0-5 Normal 0-5 [facility] Comment on above: Performed By: #### 1 0227081 #### [facility] [address] [place] [address] URINALYSISOrdered By: Bonny Workman on 04-12-2023 Bacteria [...] Interpretation Code Negative [facility] UA Auto SS [place].plasma/[place]. RBC (Bld) [Mass ratio] 0-3 /HPF Normal [...] [facility] UA Auto SS Urobilinogen Qn (U) 0.2265834 {Nevaeh'U}/dL Normal 0.0 - 1.0 EU/dL [facility] UA Auto SS WBC Auto Ql (U) Negative (04/12/23 2:32 PM) Normal Negative [facility] UA Auto SS WBC casts LM.LPF (Urine sed) [#/Area] 0-3 (04/12/23 2:32 PM) Normal [facility] UA Auto SS WBC LM.HPF (Urine sed) [#/Area] 0-5 /HPF Normal 0-5/HPF [facility] UA Auto SS Vit B12on 04-12-2023 Cobalamin (Vitamin B12) [Mass/Vol] 1018 pg/mL Normal 50-1500 [facility] Comment on above: Performed By: #### 2 463793 #### [facility] [address] [place] [address] XR Chest Single Viewon 04-12 XR Chest [...] mGy = na DAP = na Normal [facility] eGFRon 04-12-2023 GFR/1.73 sq M.predicted among non-blacks MDRD (S/P/Bld) [Vol rate/Area] 29 mL/min/1.73 m2 Low >=59 [facility] Comment on above: Order Comment: Order added by Discern Expert. 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 Kidney failure is indicated at less than 15 mL/min/1.73m2. Performed By: #### 2 485893, 79386935, 3032117, 42397224, 0992530, 18137598, 607943225, 48656722, 5254641, 2184212, 1639718, 7011712 ####[facility] [address] [place] [address] XR CSPINE OBL FLEX_EXTon XR CSPINE OBL [...] Serena OSORIO Date: 2022-09-02 00:37 Normal [facility] MRI SHOULDER RT WO CONon MRI [...] EHSAN MILLER Date: 2022-08-22 09:25 Normal [facility] XR SHOULDER RT 2V or >on [...] BRENT MALDONADO Date: 2022-08-10 22:45 Normal [facility] CT CHEST WO CONon 06-12-2022 CT [...] EHSAN MILLER Date: 2022-06-12 16:56 Normal [facility] VIT D 1 25 DIHYDROXYon 04-24 Calcitriol(1,25 di-OH Vit D) 91.0 pg/mL Critically high 24.8-81.5 [facility] Comment on above: Performed By: #### V [id number] #### [facility] [address] [place] [address] Dr. Helio Cee CULTURE URINEon 04-23-2022 CULTURE [...] F Trimethoprim/Sulfame thoxazole <=20 S F Normal [facility] Comment on above: Performed By: #### U RCX #### [facility] [address] [place] [address] Dr. Helio Cee CBC AUTO DIFFon 04-21-2022 BASO # 0.0 103/ul Normal 0.0-0.1 [facility] Comment on above: Performed By: #### E RUR #### [facility] [address] [place] [address] Dr. Helio Cee Basophils/100 WBC (Bld) 0.4 % Normal 0.2-2.0 [facility] Comment on above: Performed By: #### E RUR #### [facility] [address] [place] [address] Dr. Helio Cee EO # 0.4 103/ul Normal 0.0-0.7 [facility] Comment on above: Performed By: #### E RUR #### [facility] [address] [place] [address] Dr. Helio Cee Eosinophils/100 WBC (Bld) 4.0 % Normal 0.9-7.0 [facility] Comment on above: Performed By: #### E RUR #### [facility] [address] [place] [address] Dr. Helio Cee Erythrocyte distribution width (RBC) [Ratio] 15.2 % Critically high 11.0-15.0 [facility] Comment on above: Performed By: #### E RUR #### [facility] [address] [place] [address] Dr. Helio Cee Hematocrit (Bld) [Volume fraction] 41.0 % Normal 36.0-48.0 [facility] Comment on above: Performed By: #### E RUR #### [facility] [address] [place] [address] Dr. Helio Cee Hemoglobin (Bld) [Mass/Vol] 12.9 g/dL Normal 12.0-16.0 [facility] Comment on above: Performed By: #### E RUR #### [facility] [address] [place] [address] Dr. Helio Cee IG # 0.04 10e3/ul Critically high 0.00-0.03 [facility] Comment on above: Performed By: #### E RUR #### [facility] [address] [place] [address] Dr. Helio Cee IG % 0.4 % Normal 0.0-0.5 [facility] Comment on above: Performed By: #### E RUR #### [facility] [address] [place] [address] Dr. Helio Cee LYMPH # 1.1 103/ul Critically low 1.2-3.8 [facility] Comment on above: Performed By: #### E RUR #### [facility] [address] [place] [address] Dr. Helio Cee Lymphocytes/100 WBC (Bld) 11.9 % Critically low 20.5-60.0 [facility] Comment on above: Performed By: #### E RUR #### [facility] [address] [place] [address] Dr. Helio Cee MANUAL DIFF REQ NO Normal [facility] Comment on above: Performed By: #### E RUR #### [facility] [address] [place] [address] Dr. Helio Cee MCH (RBC) [Entitic mass] 29.0 pg Normal 26.7-34.0 [facility] Comment on above: Performed By: #### E RUR #### [facility] [address] [place] [address] Dr. Helio Cee MCHC (RBC) [Mass/Vol] 31.5 g/dL Normal 29.9-35.2 [facility] Comment on above: Performed By: #### E RUR #### [facility] [address] [place] [address] Dr. Helio Cee MCV (RBC) [Entitic vol] 92.1 fL Normal 81.0-99.0 [facility] Comment on above: Performed By: #### E RUR #### [facility] [address] [place] [address] Dr. Helio Cee MONO # 0.4 103/ul Normal 0.3-0.8 [facility] Comment on above: Performed By: #### E RUR #### [facility] [address] [place] [address] Dr. Helio Cee Monocytes/100 WBC (Bld) 4.4 % Normal 1.7-12.0 [facility] Comment on above: Performed By: #### E RUR #### [facility] [address] [place] [address] Dr. Helio Cee NEUT # 7.3 103/ul Critically high 1.4-6.5 [facility] Comment on above: Performed By: #### E RUR #### [facility] [address] [place] [address] Dr. Helio Cee Neutrophils/100 WBC (Bld) 78.9 % Critically high 43.0-75.0 [facility] Comment on above: Performed By: #### E RUR #### [facility] [address] [place] [address] Dr. Helio Cee Platelet mean volume (Bld) [Entitic vol] 10.6 fL Normal 9.5-13.5 [facility] Comment on above: Performed By: #### E RUR #### [facility] [address] [place] [address] Dr. Helio Cee PLT 269 103/ul Normal 150-450 [facility] Comment on above: Performed By: #### E RUR #### [facility] [address] [place] [address] Dr. Helio Cee RBC 4.45 106/ul Normal 4.20-5.40 [facility] Comment on above: Performed By: #### E RUR #### [facility] [address] [address] [address] Helio Cee WBC 9.2 103/ul Normal 4.0-11.0 [facility] Comment on above: Performed By: #### E RUR #### [facility] [address] [address] [address] Helio Cee LIPID PROFILEon 04-21-2022 CHOL-HDL RATIO NORM SEE BELOW Normal [facility] Comment on above: Result Comment: 3.3 - 4.4 LOW RISK 4.4 - 7.1 AVERAGE RISK 7.1 - 11.0 MODERATE RISK >11.0 HIGH RISK Performed By: #### T SH, LIPID, CMP ####[facility] [id number][address] Helio Cee Cholesterol [Mass/Vol] 146 mg/dL Normal <=200 [facility] Comment on above: Performed By: #### T CAITLIN, LIPID, CMP ####[facility] [address]Dr[address] Helio Cee Cholesterol in HDL [Mass/Vol] 63 mg/dL Critically high 40-60 [facility] Comment on above: Performed By: #### T CAITLIN, LIPID, CMP ####[facility] [address]Dr. Helio Cee Cholesterol in LDL [Mass/Vol] 66.6 mg/dL Normal [facility] Comment on above: Performed By: #### T SH, LIPID, CMP ####[facility] [address]Dr. Helio Cee Cholesterol.total/Lisa sterol in HDL [Mass ratio] 2.3 {ratio} Normal [facility] Comment on above: Performed By: #### T SH, LIPID, CMP ####[facility] [address]Dr. Helio Cee HDL NORMAL > or = 60 mg/dl - LOW CARDIOVASCULAR RISK <40 mg/dl - HIGH CARDIOVASCULAR RISK Normal [facility] Comment on above: Performed By: #### T CAITLIN, LIPID, CMP ####[facility] [address] [address]Dr. Helio Cee LDL CALC NORMAL SEE BELOW Normal [facility] Comment on above: Result Comment: <100 mg/dl OPTIMAL 100 - 129 mg/dl NEAR OR ABOVE OPTIMAL 130 - 159 mg/dl BORDERLINE HIGH 160 - 189 mg/dl HIGH >190 mg/dl VERY HIGH Performed By: #### T CAITLIN, LIPID, CMP ####[facility] [address] [address]Dr. Helio Cee Triglyceride [Mass/Vol] 82 mg/dL Normal <=150 [facility] Comment on above: Performed By: #### T CAITLIN, LIPID, CMP ####[facility] [address] [place] [address]Dr. Helio Cee VLDL CALC 16.4 mg/dL Normal [facility] Comment on above: Performed By: #### T CAITLIN, LIPID, CMP ####[facility] [address] [place] [address]Dr. Helio Cee PROF 14(COMP METB)on 022 Albumin [Mass/Vol] 3.5 g/dL Normal 3.4-5.0 [facility] Comment on above: Performed By: #### T CAITLIN, LIPID, CMP ####[facility] [address] [place] [address]Dr. Helio Cee Albumin/Globulin [Mass ratio] 1.0 {ratio} Normal [facility] Comment on above: Performed By: #### T CAITLIN, LIPID, CMP ####[facility] [address] [place] [address]Dr. Helio Cee ALP [Catalytic activity/Vol] 98 U/L Normal 46-116 [facility] Comment on above: Performed By: #### T CAITLIN, LIPID, CMP ####[facility] [address] [place] [address]Dr. Helio Cee ALT [Catalytic activity/Vol] 23 U/L Normal 14-59 [facility] Comment on above: Performed By: #### T CAITLIN, LIPID, CMP ####[facility] [address] [place] [id number]. Helio Cee Anion gap [Moles/Vol] 12.2 mmol/L Normal Th [facility] Comment on above: Performed By: #### T SH, LIPID, CMP ####[facility] [id number]. Helio Cee AST [Catalytic activity/Vol] 15 U/L Normal 15-37 [facility] Comment on above: Performed By: #### T SH, LIPID, CMP ####[facility] [address] [place] [address]Dr. Helio Cee Bilirubin [Mass/Vol] 0.5 mg/dL Normal 0.2-1.0 [facility] Comment on above: Performed By: #### T SH, LIPID, CMP ####[facility] [address] [place] [address]Dr. Helio Cee Calcium [Mass/Vol] 9.0 mg/dL Normal 8.5-10.1 [facility] Comment on above: Performed By: #### T SH, LIPID, CMP ####[facility] [address] [place], [place] [address]Dr. Helio Cee Chloride [Moles/Vol] 109 mmol/L Critically high 98-107 [facility] Comment on above: Performed By: #### T SH, LIPID, CMP ####[facility] [address] [place] [address]Dr. Helio Cee CO2 [Moles/Vol] 26.5 mmol/L Normal 21.0-32.0 [facility] Comment on above: Performed By: #### T SH, LIPID, CMP ####[facility] [address] [place] [address]Dr. Helio Cee Creatinine [Mass/Vol] 1.22 mg/dL Critically high 0.55-1.02 [facility] Comment on above: Performed By: #### T SH, LIPID, CMP ####[facility] [address] [place] [address]Dr. Helio Cee EGFR-AF SERBIAN 52 mL/min/1.73m2 Critically low >=60 [facility] Comment on above: Performed By: #### T SH, LIPID, CMP ####[facility] [address] [place] [address]Dr. Helio Cee EGFR-NON AF SERBIAN 43 mL/min/1.73m2 Critically low >=60 [facility] Comment on above: Performed By: #### T SH, LIPID, CMP ####[facility] [address] [place], [place] [address]Dr. Helio Cee Globulin (S) [Mass/Vol] 3.4 g/dL Normal [facility] Comment on above: Performed By: #### T CAITLIN, LIPID, CMP ####[facility] [address]nauehgica[address] [place], [place] [address]Dr. Helio Cee Glucose [Mass/Vol] 103 mg/dL Normal 74-106 [facility] Comment on above: Performed By: #### T CAITLIN, LIPID, CMP ####[facility] [address]udxafl[address] [place], [place] [address]Dr. Helio Cee Potassium [Moles/Vol] 4.7 mmol/L Normal 3.5-5.1 [facility] Comment on above: Performed By: #### T CAITLIN, LIPID, CMP ####[facility] Mtlnnisx[address] [place], [place] [address]Dr. Helio Cee Protein [Mass/Vol] 6.9 g/dL Normal 6.4-8.2 [facility] Comment on above: Performed By: #### T SH, LIPID, CMP ####[facility] [address] [place], [place] [address]Dr. Helio Cee Sodium [Moles/Vol] 143 mmol/L Normal 136-145 [facility] Comment on above: Performed By: #### T CAITLIN, LIPID, CMP ####[facility] Skzgpnvkxc[address] [place], [place] [address]Dr. Helio Cee Urea nitrogen [Mass/Vol] 22.0 mg/dL Critically high 7.0-18.0 [facility] Comment on above: Performed By: #### T SH, LIPID, CMP ####[facility] [address] [place] [address]Dr. Helio Cee Urea nitrogen/Creatinine [Mass ratio] 18.0 mg/mg Normal [facility] Comment on above: Performed By: #### T SH, LIPID, CMP ####[facility] [address] [place] [address]Dr. Helio Cee TSHon 04-21-2022 TSH 0.592 uIU/mL Normal 0.358-3.[address] [facility] Comment on above: Performed By: #### T SH, LIPID, CMP ####[facility] [address]fr[address] [place], [place] [address]Dr. Helio Cee UA RANDOM W/MICROSCOPICon BACTERIA NONE SEEN Normal NONE SEEN [facility] Comment on above: Performed By: #### U AMIC ####[facility] [address] [place], [place] [address]Dr. Helio Cee Bilirubin Ql (U) Negative Normal NEGATIVE [facility] Comment on above: Performed By: #### U AMIC ####[facility] V[address] [place], [place] [address]Dr. Helio Cee CAST NONE SEEN Normal NONE SEEN [facility] Comment on above: Performed By: #### U AMIC ####[facility] [address] [place] [address]Dr. Helio Cee Clarity (U) CLEAR Normal CLEAR [facility] Comment on above: Performed By: #### U AMIC ####[facility] Hoyuroner[address] [place], [place] [address]Dr. Helio Cee Color (U) DK. YELLOW Normal YELLOW [facility] Comment on above: Performed By: #### U AMIC ####[facility] [address] [place], [place] [address]Dr. Helio Cee Crystals LM Nom (Urine sed) NONE SEEN Normal NONE SEEN [facility] Comment on above: Performed By: #### U AMIC ####[facility] Xrox[address]rni[address] [place], [place] [address]Dr. Helio Cee Epithelial cells LM Ql (Urine sed) RARE Normal NONE SEEN /RARE [facility] Comment on above: Performed By: #### U AMIC ####[facility] [address] [place] [address]Dr. Claudettemagan Cee Glucose Ql (U) Negative Normal NEGATIVE [facility] Comment on above: Performed By: #### U AMIC ####[facility] [address] [place] [address]Dr. Helio Cee Hemoglobin Ql (U) Negative Normal NEGATIVE [facility] Comment on above: Performed By: #### U AMIC ####[facility] [address] [place] [address]Dr. Helio Cee Ketones Ql (U) Negative Normal NEGATIVE [facility] Comment on above: Performed By: #### U AMIC ####[facility] [address] [place], [place] [address]Dr. Helio Cee LEUKOCYTES Negative Normal NEGATIVE [facility] Comment on above: Performed By: #### U AMIC ####[facility] [address] [place], [place] [address]Dr. Helio Cee MUCOUS TRACE Abnormal NONE SEEN [facility] Comment on above: Performed By: #### U AMIC ####[facility] [address] [place], [place] [address]Dr. Claudettemagan Coleman Nitrite Ql (U) Negative Normal NEGATIVE [facility] Comment on above: Performed By: #### U AMIC ####[facility] [address] [place], [place] [address]Dr. Helio Cee pH (U) 5.5 [pH] Normal 5-9 [facility] Comment on above: Performed By: #### U AMIC ####[facility] [address] [place], [place] [address]Dr. Helio Cee RBC 0-2 Normal 0-2 [facility] Comment on above: Performed By: #### U AMIC ####[facility] [address] [place] [address]Dr. Helio Cee SPEC GRAVITY >=1.030 Abnormal 1.005-<=1.02 5 [facility] Comment on above: Performed By: #### U AMIC ####[facility] [address] [place], [place] [address]To. Helio Cee UA PROTEIN TRACE Normal NEGATIVE/ TRACE [facility] Comment on above: Performed By: #### U AMIC ####[facility] [address] [place], [place] [address]Gr. Helio Cee Urobilinogen Qn (U) 1.0 {Nevaeh'U}/dL Normal 0.2 - 1. 0 [facility] Comment on above: Performed By: #### U AMIC ####[facility] [address] [place], [place] [address]Fe. Helio Cee WBC NONE SEEN Normal NONE SEEN [facility] Comment on above: Performed By: #### U AMIC ####[facility] [address] [place], [place] [address]Ll. Helio Cee CT CHEST WO CONon 02-22-2022 [...] EHSAN MILLER Date: 2022-02-22 16:51 Normal [facility] HEMOGLOBINon 02-22-2022 Hemoglobin (Bld) [Mass/Vol] 13.6 g/dL Normal 12.0-16.0 [facility] Comment on above: Performed By: #### V [id number] #### [facility] [address] [place] [address] Dr. Helio Cee XR TIB_FIB RT 2Von [...] BRENT LONG Date: 2022-01-07 21:52 Normal [facility] BNPon 11-22-2021 Natriuretic peptide B (Bld) [Mass/Vol] 1469.0 pg/mL Critically high <=900.0 [facility] Comment on above: Performed By: #### C VDTBH #### [facility] [address] [place] [address] Dr. Helio Cee CBC AUTO DIFFon 11-22-2021 BASO # 0.1 103/ul Normal 0.0-0.1 [facility] Comment on above: Performed By: #### E RUR #### [facility] [address] [place] [address] Dr. Helio Cee Basophils/100 WBC (Bld) 0.7 % Normal 0.2-2.0 [facility] Comment on above: Performed By: #### E RUR #### [facility] [address] [place] [address] Dr. Helio Cee EO # 0.2 103/ul Normal 0.0-0.7 [facility] Comment on above: Performed By: #### E RUR #### [facility] [address] [place] [address] Dr. Helio Cee Eosinophils/100 WBC (Bld) 1.9 % Normal 0.9-7.0 [facility] Comment on above: Performed By: #### E RUR #### [facility] [address] [place] [address] Dr. Helio Cee Erythrocyte distribution width (RBC) [Ratio] 14.3 % Normal 11.0-15.0 [facility] Comment on above: Performed By: #### E RUR #### [facility] [address] [place] [address] Dr. Helio Cee Hematocrit (Bld) [Volume fraction] 37.9 % Normal 36.0-48.0 [facility] Comment on above: Performed By: #### E RUR #### [facility] [address] [place] [address] Dr. Helio Cee Hemoglobin (Bld) [Mass/Vol] 12.0 g/dL Normal 12.0-16.0 [facility] Comment on above: Performed By: #### E RUR #### [facility] [address] [place] [address] Dr. Helio Cee IG # 0.10 10e3/ul Critically high 0.00-0.03 [facility] Comment on above: Performed By: #### E RUR #### [facility] [address] [place] [address] Dr. Helio Cee IG % 1.1 % Critically high 0.0-0.5 [facility] Comment on above: Performed By: #### E RUR #### [facility] [address] [place] [address] Dr. Helio Cee LYMPH # 0.9 103/ul Critically low 1.2-3.8 [facility] Comment on above: Performed By: #### E RUR #### [facility] [address] [place] [address] Dr. Helio Cee Lymphocytes/100 WBC (Bld) 10.1 % Critically low 20.5-60.0 [facility] Comment on above: Performed By: #### E RUR #### [facility] [address] [place] [address] Dr. Helio Cee MANUAL DIFF REQ NO Normal [facility] Comment on above: Performed By: #### E RUR #### [facility] [address] [place] [address] Dr. Helio Cee MCH (RBC) [Entitic mass] 29.8 pg Normal 26.7-34.0 [facility] Comment on above: Performed By: #### E RUR #### [facility] [address] [place] [address] Dr. Helio Cee MCHC (RBC) [Mass/Vol] 31.7 g/dL Normal 29.9-35.2 [facility] Comment on above: Performed By: #### E RUR #### [facility] [address] [place] [address] Dr. Helio Cee MCV (RBC) [Entitic vol] 94.0 fL Normal 81.0-99.0 [facility] Comment on above: Performed By: #### E RUR #### [facility] [address] [place] [address] Dr. Helio Cee MONO # 0.7 103/ul Normal 0.3-0.8 [facility] Comment on above: Performed By: #### E RUR #### [facility] [address] [place] [address] Dr. Helio Cee Monocytes/100 WBC (Bld) 7.8 % Normal 1.7-12.0 [facility] Comment on above: Performed By: #### E RUR #### [facility] [address] [place] [address] Dr. Helio Cee NEUT # 7.2 103/ul Critically high 1.4-6.5 [facility] Comment on above: Performed By: #### E RUR #### [facility] [address] [place] [address] Dr. Helio Cee Neutrophils/100 WBC (Bld) 78.4 % Critically high 43.0-75.0 [facility] Comment on above: Performed By: #### E RUR #### [facility] [address] [place] [address] Dr. Helio Cee Platelet mean volume (Bld) [Entitic vol] 10.6 fL Normal 9.5-13.5 [facility] Comment on above: Performed By: #### E RUR #### [facility] [address] [address] [address] Helio Cee PLT 278 103/ul Normal 150-450 [facility] Comment on above: Performed By: #### E RUR #### [facility] [address] [address] [address] Helio Cee RBC 4.03 106/ul Critically low 4.20-5.40 [facility] Comment on above: Performed By: #### E RUR #### [facility] [address] [address] [address] Helio Cee WBC 9.1 103/ul Normal 4.0-11.0 [facility] Comment on above: Performed By: #### E RUR #### [facility] [address] [address] [address] Helio Cee CTA CHEST WO W [...] Jay BARAHONA Date: 2021-11-22 16:47 Normal [facility] CULTURE BLOODon 11-22-2021 Microscopic examination of blood, culture Culture Observations: NO GROWTH AT 5 DAYS. Normal [facility] Comment on above: Performed By: #### B [id number] ####[facility] [address] [place], [place] [address]KvDr. Helio Cee Microscopic examination of blood, culture Culture Observations: NO GROWTH AT 5 DAYS. Normal [facility] Comment on above: Performed By: #### B [id number] #### [facility] [address] [place], [place] [address] Dr. Helio Cee [facility]11 SARS-CoV-2 (COVID-19) RNA KIMMY+probe Ql (Unsp spec) Not detected Normal NOT DETECTED [facility] Comment on above: Result Comment: When [...] for this test is supported by the [employer] and Human Service's declaration that [...] used). Performed By: #### C VDTB #### [facility] [address] [address] [address] Helio Cee LACTATE/LACTIC ACIDon 2021 Lactate [Moles/Vol] mmol/L Critically low 0.4-1.9 [facility] Comment on above: Performed By: #### L ACT ####[facility] [address] [place] [address]Dr. Helio Cee PROF 14(COMP METB)on 022 Albumin [Mass/Vol] 3.1 g/dL Critically low 3.4-5.0 [facility] Comment on above: Performed By: #### V [id number] #### [facility] [address] [place] [address] Dr. Helio Cee Albumin/Globulin [Mass ratio] 0.8 {ratio} Normal [facility] Comment on above: Performed By: #### V [id number] #### [facility] [address] [place] [address] Dr. Helio Cee ALP [Catalytic activity/Vol] 92 U/L Normal 46-116 [facility] Comment on above: Performed By: #### V [id number] #### [facility] [address] [place] [address] Dr. Helio Cee ALT [Catalytic activity/Vol] 23 U/L Normal 14-59 [facility] Comment on above: Performed By: #### V [id number] #### [facility] [address] [place] [address] Dr. Helio Cee Anion gap [Moles/Vol] 12.8 mmol/L Normal [facility] Comment on above: Performed By: #### V [id number] #### [facility] [address] [place] [address] Dr. Helio Cee AST [Catalytic activity/Vol] 16 U/L Normal 15-37 [facility] Comment on above: Performed By: #### V [id number] #### [facility] [address] [address] [address] Helio Cee Bilirubin [Mass/Vol] 0.6 mg/dL Normal 0.2-1.0 [facility] Comment on above: Performed By: #### V [id number] #### [facility] [address] [address] [address] Helio Cee Calcium [Mass/Vol] 9.5 mg/dL Normal 8.5-10.1 [facility] Comment on above: Performed By: #### V [id number] #### [facility] [address] [place] [address] Dr. Helio Cee Chloride [Moles/Vol] 106 mmol/L Normal 98-107 [facility] Comment on above: Performed By: #### V [id number] #### [facility] [address] [place] [address] Dr. Helio Cee CO2 [Moles/Vol] 25.1 mmol/L Normal 21.0-32.0 [facility] Comment on above: Performed By: #### V [id number] #### [facility] [address] [place] [address] Dr. Helio Cee Creatinine [Mass/Vol] 1.06 mg/dL Critically high 0.55-1.02 [facility] Comment on above: Performed By: #### V [id number] #### [facility] [address] [place] [address] Dr. Helio Cee EGFR-AF SERBIAN >60 Normal >=60 [facility] Comment on above: Performed By: #### V [id number] #### [facility] [address] [place] [address] Dr. Helio Cee EGFR-NON AF SERBIAN 51 mL/min/1.73m2 Critically low >=60 [facility] Comment on above: Performed By: #### V [id number] #### [facility] [address] [place] [address] Dr. Helio Cee Globulin (S) [Mass/Vol] 4.1 g/dL Normal [facility] Comment on above: Performed By: #### V [id number] #### [facility] [address] [place] [address] Dr. Helio Cee Glucose [Mass/Vol] 99 mg/dL Normal 74-106 [facility] Comment on above: Performed By: #### V [id number] #### [facility] [address] [place] [address] Dr. Helio Cee Potassium [Moles/Vol] 3.9 mmol/L Normal 3.5-5.1 [facility] Comment on above: Performed By: #### V [id number] #### [facility] [address] [place] [address] Dr. Helio Cee Protein [Mass/Vol] 7.2 g/dL Normal 6.4-8.2 [facility] Comment on above: Performed By: #### V [id number] #### [facility] [address] [place] [address] Dr. Helio Cee Sodium [Moles/Vol] 140 mmol/L Normal 136-145 [facility] Comment on above: Performed By: #### V [id number] #### [facility] [address] [place] [address] Dr. Helio Cee Urea nitrogen [Mass/Vol] 15.0 mg/dL Normal 7.0-18.0 [facility] Comment on above: Performed By: #### V [id number] #### [facility] [address] [place] [address] Dr. Helio Cee Urea nitrogen/Creatinine [Mass ratio] 14.2 mg/mg Normal [facility] Comment on above: Performed By: #### V [id number] #### [facility] [address] [place] [address] Dr. Helio Cee TROPONIN, HIGH SENSITIVITYon 11-22-2021 HSTROP 11.6 pg/mL Normal 4.0-51.3 [facility] Comment on above: Result Comment: CUT- OFF POINTS HAVE BEEN ESTABLISHED BASED ON THE FOURTH UNIVERSAL DEFINITIONS OF MYOCARDIAL INFARCTION. THE UPPER REFERENCE LIMIT (URL) OF TROPONIN, DEFINED THE 99TH PERCENTILE OF cTnI DISTRIBUTION IN A REFERENCE POPULATION, HAS BEEN CONFIRMED THE DECISION THRESHOLD FOR MS DIAGNOSIS. Performed By: #### V [id number] #### [facility] [address] [place] [address] Dr. Helio Cee XR CHEST 2 Von [...] by: ISAC CONNOR Date: 2021-11-22 14:20 Normal [facility] BNPon 11-21-2021 Natriuretic peptide B (Bld) [Mass/Vol] 953.0 pg/mL Critically high <=900.0 [facility] Comment on above: Performed By: #### E RUR #### [facility] [address] [place] [address] Dr. Helio Cee CBC AUTO DIFFon 11-21-2021 BASO # 0.0 103/ul Normal 0.0-0.1 [facility] Comment on above: Performed By: #### E RUR #### [facility] [address] [place] [address] Dr. Helio Cee Basophils/100 WBC (Bld) 0.4 % Normal 0.2-2.0 [facility] Comment on above: Performed By: #### E RUR #### [facility] [address] [place] [address] Dr. Helio Cee EO # 0.1 103/ul Normal 0.0-0.7 [facility] Comment on above: Performed By: #### E RUR #### [facility] [address] [place] [address] Dr. Helio Cee Eosinophils/100 WBC (Bld) 1.1 % Normal 0.9-7.0 [facility] Comment on above: Performed By: #### E RUR #### [facility] [address] [place] [address] Dr. Helio Cee Erythrocyte distribution width (RBC) [Ratio] 14.6 % Normal 11.0-15.0 [facility] Comment on above: Performed By: #### E RUR #### [facility] [address] [place] [address] Dr. Helio Cee Hematocrit (Bld) [Volume fraction] 35.2 % Critically low 36.0-48.0 [facility] Comment on above: Performed By: #### E RUR #### [facility] [address] [place] [address] Dr. Helio Cee Hemoglobin (Bld) [Mass/Vol] 10.9 g/dL Critically low 12.0-16.0 [facility] Comment on above: Performed By: #### E RUR #### [facility] [address] [place] [address] Dr. Helio Cee IG # 0.07 10e3/ul Critically high 0.00-0.03 [facility] Comment on above: Performed By: #### E RUR #### [facility] [address] [place] [address] Dr. Helio Cee IG % 0.7 % Critically high 0.0-0.5 [facility] Comment on above: Performed By: #### E RUR #### [facility] [address] [place] [address] Dr. Helio Cee LYMPH # 1.4 103/ul Normal 1.2-3.8 [facility] Comment on above: Performed By: #### E RUR #### [facility] [address] [place] [address] Dr. Helio Cee Lymphocytes/100 WBC (Bld) 13.3 % Critically low 20.5-60.0 [facility] Comment on above: Performed By: #### E RUR #### [facility] [address] [place] [address] Dr. Helio Cee MANUAL DIFF REQ NO Normal [facility] Comment on above: Performed By: #### E RUR #### [facility] [address] [place] [address] Dr. Helio Cee MCH (RBC) [Entitic mass] 29.5 pg Normal 26.7-34.0 [facility] Comment on above: Performed By: #### E RUR #### [facility] [address] [place] [address] Dr. Helio Cee MCHC (RBC) [Mass/Vol] 31.0 g/dL Normal 29.9-35.2 [facility] Comment on above: Performed By: #### E RUR #### [facility] [address] [place] [address] Dr. Helio Cee MCV (RBC) [Entitic vol] 95.4 fL Normal 81.0-99.0 [facility] Comment on above: Performed By: #### E RUR #### [facility] [address] [place] [address] Dr. Helio Cee MONO # 0.8 103/ul Normal 0.3-0.8 [facility] Comment on above: Performed By: #### E RUR #### [facility] [address] [place] [address] Dr. Helio Cee Monocytes/100 WBC (Bld) 7.3 % Normal 1.7-12.0 [facility] Comment on above: Performed By: #### E RUR #### [facility] [address] [place] [address] Dr. Helio Cee NEUT # 7.9 103/ul Critically high 1.4-6.5 [facility] Comment on above: Performed By: #### E RUR #### [facility] [address] [place] [address] Dr. Helio Cee Neutrophils/100 WBC (Bld) 77.2 % Critically high 43.0-75.0 [facility] Comment on above: Performed By: #### E RUR #### [facility] [address] [place] [address] Dr. Helio Cee Platelet mean volume (Bld) [Entitic vol] 11.1 fL Normal 9.5-13.5 [facility] Comment on above: Performed By: #### E RUR #### [facility] [address] [place] [address] Dr. Helio Cee PLT 245 103/ul Normal 150-450 [facility] Comment on above: Performed By: #### E RUR #### [facility] [address] [place] [address] Dr. Heilo Cee RBC 3.69 106/ul Critically low 4.20-5.40 [facility] Comment on above: Performed By: #### E RUR #### [facility] [address] [place] [address] Dr. Helio Cee WBC 10.2 103/ul Normal 4.0-11.0 [facility] Comment on above: Performed By: #### E RUR #### [facility] [address] [place] [address] Dr. Helio Cee PROF 14(COMP METB)on 022 Albumin [Mass/Vol] 2.6 g/dL Critically low 3.4-5.0 [facility] Comment on above: Performed By: #### V [id number] #### [facility] [address] [place] [address] Dr. Helio Cee Albumin/Globulin [Mass ratio] 0.7 {ratio} Normal [facility] Comment on above: Performed By: #### V [id number] #### [facility] [address] [place] [address] Dr. Helio Cee ALP [Catalytic activity/Vol] 75 U/L Normal 46-116 [facility] Comment on above: Performed By: #### V [id number] #### [facility] [address] [place] [address] Dr. Helio Cee ALT [Catalytic activity/Vol] 19 U/L Normal 14-59 [facility] Comment on above: Performed By: #### V [id number] #### [facility] [address] [place] [address] Dr. Helio Cee Anion gap [Moles/Vol] 11.7 mmol/L Normal [facility] Comment on above: Performed By: #### V [id number] #### [facility] [address] [address] [address] Helio Cee AST [Catalytic activity/Vol] 8 U/L Critically low 15-37 [facility] Comment on above: Performed By: #### V [id number] #### [facility] [address] [address] [address] Helio Cee Bilirubin [Mass/Vol] 0.3 mg/dL Normal 0.2-1.0 [facility] Comment on above: Performed By: #### V [id number] #### [facility] [address] [address] [address] Helio Cee Calcium [Mass/Vol] 9.0 mg/dL Normal 8.5-10.1 [facility] Comment on above: Performed By: #### V [id number] #### [facility] [address] [address] [address] Helio Cee Chloride [Moles/Vol] 107 mmol/L Normal 98-107 [facility] Comment on above: Performed By: #### V [id number] #### [facility] [address] [place] [address] Dr. Helio Cee CO2 [Moles/Vol] 24.7 mmol/L Normal 21.0-32.0 [facility] Comment on above: Performed By: #### V [id number] #### [facility] [address] [address] [address] Helio Cee Creatinine [Mass/Vol] 0.91 mg/dL Normal 0.55-1.02 [facility] Comment on above: Performed By: #### V [id number] #### [facility] [address] [address] [address] Helio Cee EGFR-AF SERBIAN >60 Normal >=60 [facility] Comment on above: Performed By: #### V [id number] #### [facility] [address] [place] [address] Dr. Helio Cee EGFR-NON AF SERBIAN 60 mL/min/1.73m2 Normal >=60 [facility] Comment on above: Performed By: #### V [id number] #### [facility] [address] [address] [address] Helio Cee Globulin (S) [Mass/Vol] 3.9 g/dL Normal [facility] Comment on above: Performed By: #### V [id number] #### [facility] [address] [address] [address] Helio Cee Glucose [Mass/Vol] 131 mg/dL Critically high 74-106 [facility] Comment on above: Performed By: #### V [id number] #### [facility] [address] [address] [address] Helio Cee Potassium [Moles/Vol] 3.4 mmol/L Critically low 3.5-5.1 [facility] Comment on above: Performed By: #### V [id number] #### [facility] [address] [place] [address] Dr. Helio Cee Protein [Mass/Vol] 6.5 g/dL Normal 6.4-8.2 [facility] Comment on above: Performed By: #### V [id number] #### [facility] [address] [address] [address] Helio Cee Sodium [Moles/Vol] 140 mmol/L Normal 136-145 [facility] Comment on above: Performed By: #### V [id number] #### [facility] [address] [address] [address] Helio Cee Urea nitrogen [Mass/Vol] 14.0 mg/dL Normal 7.0-18.0 [facility] Comment on above: Performed By: #### V [id number] #### [facility] [address] [address] [address] Helio Cee Urea nitrogen/Creatinine [Mass ratio] 15.4 mg/mg Normal [facility] Comment on above: Performed By: #### V [id number] #### [facility] [address] [place] [address] Dr. Helio Cee BNPon 11-20-2021 Natriuretic peptide B (Bld) [Mass/Vol] 781.0 pg/mL Normal <=900.0 [facility] Comment on above: Performed By: #### E RUR #### [facility] [address] [place] [address] Dr. Helio Cee CBC AUTO DIFFon 11-20-2021 BASO # 0.0 103/ul Normal 0.0-0.1 [facility] Comment on above: Performed By: #### V [id number] #### [facility] [address] [place] [address] Dr. Helio Cee Basophils/100 WBC (Bld) 0.3 % Normal 0.2-2.0 [facility] Comment on above: Performed By: #### V [id number] #### [facility] [address] [place] [address] Dr. Helio Cee EO # 0.1 103/ul Normal 0.0-0.7 [facility] Comment on above: Performed By: #### V [id number] #### [facility] [address] [place] [address] Dr. Helio Cee Eosinophils/100 WBC (Bld) 0.5 % Critically low 0.9-7.0 [facility] Comment on above: Performed By: #### V [id number] #### [facility] [address] [place] [address] Dr. Helio Cee Erythrocyte distribution width (RBC) [Ratio] 14.5 % Normal 11.0-15.0 [facility] Comment on above: Performed By: #### V [id number] #### [facility] [address] [place] [address] Dr. Helio Cee Hematocrit (Bld) [Volume fraction] 36.6 % Normal 36.0-48.0 [facility] Comment on above: Performed By: #### V [id number] #### [facility] [address] [place] [address] Dr. Helio Cee Hemoglobin (Bld) [Mass/Vol] 11.5 g/dL Critically low 12.0-16.0 [facility] Comment on above: Performed By: #### V [id number] #### [facility] [address] [address] [address] Helio Cee IG # 0.07 10e3/ul Critically high 0.00-0.03 [facility] Comment on above: Performed By: #### V [id number] #### [facility] [address] [place] [address] Dr. Helio Cee IG % 0.5 % Normal 0.0-0.5 [facility] Comment on above: Performed By: #### V [id number] #### [facility] [address] [place] [address] Dr. Helio Cee LYMPH # 1.2 103/ul Normal 1.2-3.8 [facility] Comment on above: Performed By: #### V [id number] #### [facility] [address] [place] [address] Dr. Helio Cee Lymphocytes/100 WBC (Bld) 9.5 % Critically low 20.5-60.0 [facility] Comment on above: Performed By: #### V [id number] #### [facility] [address] [place] [address] Dr. Helio Cee MANUAL DIFF REQ NO Normal [facility] Comment on above: Performed By: #### V [id number] #### [facility] [address] [place] [address] Dr. Helio Cee MCH (RBC) [Entitic mass] 30.2 pg Normal 26.7-34.0 [facility] Comment on above: Performed By: #### V [id number] #### [facility] [address] [place] [address] Dr. Helio Cee MCHC (RBC) [Mass/Vol] 31.4 g/dL Normal 29.9-35.2 [facility] Comment on above: Performed By: #### V [id number] #### [facility] [address] [place] [address] Dr. Helio Cee MCV (RBC) [Entitic vol] 96.1 fL Normal 81.0-99.0 [facility] Comment on above: Performed By: #### V [id number] #### [facility] [address] [address] [address] Helio Cee MONO # 0.7 103/ul Normal 0.3-0.8 [facility] Comment on above: Performed By: #### V [id number] #### [facility] [address] [place] [address] Dr. Helio Cee Monocytes/100 WBC (Bld) 5.7 % Normal 1.7-12.0 [facility] Comment on above: Performed By: #### V [id number] #### [facility] [address] [place] [address] Dr. Helio Cee NEUT # 10.8 103/ul Critically high 1.4-6.5 [facility] Comment on above: Performed By: #### V [id number] #### [facility] [address] [place] [address] Dr. Helio Cee Neutrophils/100 WBC (Bld) 83.5 % Critically high 43.0-75.0 [facility] Comment on above: Performed By: #### V [id number] #### [facility] [address] [place] [address] Dr. Helio Cee Platelet mean volume (Bld) [Entitic vol] 11.1 fL Normal 9.5-13.5 [facility] Comment on above: Performed By: #### V [id number] #### [facility] [address] [place] [address] Dr. Helio Cee PLT 231 103/ul Normal 150-450 [facility] Comment on above: Performed By: #### V [id number] #### [facility] [address] [place] [address] Dr. Helio Cee RBC 3.81 106/ul Critically low 4.20-5.40 [facility] Comment on above: Performed By: #### V [id number] #### [facility] [address] [place] [address] Dr. Helio Cee WBC 13.0 103/ul Critically high 4.0-11.0 [facility] Comment on above: Performed By: #### V [id number] #### [facility] [address] [place] [address] Dr. Helio Cee PROF 14(COMP METB)on 022 Albumin [Mass/Vol] 2.9 g/dL Critically low 3.4-5.0 [facility] Comment on above: Performed By: #### E RUR #### [facility] [address] [place] [address] Dr. Helio Cee Albumin/Globulin [Mass ratio] 0.8 {ratio} Normal [facility] Comment on above: Performed By: #### E RUR #### [facility] [address] [place] [address] Dr. Helio Cee ALP [Catalytic activity/Vol] 81 U/L Normal 46-116 [facility] Comment on above: Performed By: #### E RUR #### [facility] [address] [place] [address] Dr. Helio Cee ALT [Catalytic activity/Vol] 21 U/L Normal 14-59 [facility] Comment on above: Performed By: #### E RUR #### [facility] [address] [place] [address] Dr. Helio Cee Anion gap [Moles/Vol] 12.4 mmol/L Normal [facility] Comment on above: Performed By: #### E RUR #### [facility] [address] [place] [address] Dr. Helio Cee AST [Catalytic activity/Vol] 11 U/L Critically low 15-37 [facility] Comment on above: Performed By: #### E RUR #### [facility] [address] [place] [address] Dr. Helio Cee Bilirubin [Mass/Vol] 0.4 mg/dL Normal 0.2-1.0 [facility] Comment on above: Performed By: #### E RUR #### [facility] [address] [place] [address] Dr. Helio Cee Calcium [Mass/Vol] 8.7 mg/dL Normal 8.5-10.1 [facility] Comment on above: Performed By: #### E RUR #### [facility] [address] [place] [address] Dr. Helio Cee Chloride [Moles/Vol] 108 mmol/L Critically high 98-107 [facility] Comment on above: Performed By: #### E RUR #### [facility] [address] [address] [address] Helio Cee CO2 [Moles/Vol] 24.2 mmol/L Normal 21.0-32.0 [facility] Comment on above: Performed By: #### E RUR #### [facility] [address] [address] [address] Helio Cee Creatinine [Mass/Vol] 1.03 mg/dL Critically high 0.55-1.02 [facility] Comment on above: Performed By: #### E RUR #### [facility] [address] [place] [address] Dr. Helio Cee EGFR-AF SERBIAN >60 Normal >=60 [facility] Comment on above: Performed By: #### E RUR #### [facility] [address] [address] [address] Helio Cee EGFR-NON AF SERBIAN 52 mL/min/1.73m2 Critically low >=60 [facility] Comment on above: Performed By: #### E RUR #### [facility] [address] [place] [address] Dr. Helio Cee Globulin (S) [Mass/Vol] 3.5 g/dL Normal [facility] Comment on above: Performed By: #### E RUR #### [facility] [address] [address] [address] Helio Cee Glucose [Mass/Vol] 142 mg/dL Critically high 74-106 [facility] Comment on above: Performed By: #### E RUR #### [facility] [address] [address] [address] Helio Cee Potassium [Moles/Vol] 3.6 mmol/L Normal 3.5-5.1 [facility] Comment on above: Performed By: #### E RUR #### [facility] [address] [address] [address] Helio Cee Protein [Mass/Vol] 6.4 g/dL Normal 6.4-8.2 [facility] Comment on above: Performed By: #### E RUR #### [facility] [address] [address] [address] Heilo Cee Sodium [Moles/Vol] 141 mmol/L Normal 136-145 [facility] Comment on above: Performed By: #### E RUR #### [facility] [address] [address] [address] Helio Cee Urea nitrogen [Mass/Vol] 19.0 mg/dL Critically high 7.0-18.0 [facility] Comment on above: Performed By: #### E RUR #### [facility] [address] [place] [address] Dr. Helio Cee Urea nitrogen/Creatinine [Mass ratio] 18.4 mg/mg Normal [facility] Comment on above: Performed By: #### E RUR #### [facility] [address] [place] [address] Dr. Helio Cee XR CHEST 2 Von [...] EUN BARRY Date: 2021-11-20 07:56 Normal [facility] BNPon 11-19-2021 Natriuretic peptide B (Bld) [Mass/Vol] 777.0 pg/mL Normal <=900.0 [facility] Comment on above: Performed By: #### E RUR #### [facility] [address] [place] [address] Dr. Helio Cee CBC AUTO DIFFon 11-19-2021 BASO # 0.0 103/ul Normal 0.0-0.1 [facility] Comment on above: Performed By: #### V [id number] #### [facility] [address] [address] [address] Helio Cee Basophils/100 WBC (Bld) 0.2 % Normal 0.2-2.0 [facility] Comment on above: Performed By: #### V [id number] #### [facility] [address] [place] [address] Dr. Helio Cee EO # 0.1 103/ul Normal 0.0-0.7 [facility] Comment on above: Performed By: #### V [id number] #### [facility] [address] [place] [address] Dr. Helio Cee Eosinophils/100 WBC (Bld) 0.5 % Critically low 0.9-7.0 [facility] Comment on above: Performed By: #### V [id number] #### [facility] [address] [place] [address] Dr. Helio Cee Erythrocyte distribution width (RBC) [Ratio] 14.6 % Normal 11.0-15.0 [facility] Comment on above: Performed By: #### V [id number] #### [facility] [address] [place] [address] Dr. Helio Cee Hematocrit (Bld) [Volume fraction] 37.4 % Normal 36.0-48.0 [facility] Comment on above: Performed By: #### V [id number] #### [facility] [address] [place] [address] Dr. Helio Cee Hemoglobin (Bld) [Mass/Vol] 11.5 g/dL Critically low 12.0-16.0 [facility] Comment on above: Performed By: #### V [id number] #### [facility] [address] [place] [address] Dr. Helio Cee IG # 0.07 10e3/ul Critically high 0.00-0.03 [facility] Comment on above: Performed By: #### V [id number] #### [facility] [address] [place] [address] Dr. Helio Cee IG % 0.5 % Normal 0.0-0.5 [facility] Comment on above: Performed By: #### V [id number] #### [facility] [address] [place] [address] Dr. Helio Cee LYMPH # 1.1 103/ul Critically low 1.2-3.8 [facility] Comment on above: Performed By: #### V [id number] #### [facility] [address] [place] [address] Dr. Helio Cee Lymphocytes/100 WBC (Bld) 6.8 % Critically low 20.5-60.0 [facility] Comment on above: Performed By: #### V [id number] #### [facility] [address] [place] [address] Dr. Helio Cee MANUAL DIFF REQ NO Normal [facility] Comment on above: Performed By: #### V [id number] #### [facility] [address] [place] [address] Dr. Helio Cee MCH (RBC) [Entitic mass] 30.1 pg Normal 26.7-34.0 [facility] Comment on above: Performed By: #### V [id number] #### [facility] [address] [place] [address] Dr. Helio Cee MCHC (RBC) [Mass/Vol] 30.7 g/dL Normal 29.9-35.2 [facility] Comment on above: Performed By: #### V [id number] #### [facility] [address] [place] [address] Dr. Helio Cee MCV (RBC) [Entitic vol] 97.9 fL Normal 81.0-99.0 [facility] Comment on above: Performed By: #### V [id number] #### [facility] [address] [place] [address] Dr. Heilo Cee MONO # 0.8 103/ul Normal 0.3-0.8 [facility] Comment on above: Performed By: #### V [id number] #### [facility] [address] [place] [address] Dr. Helio Cee Monocytes/100 WBC (Bld) 5.3 % Normal 1.7-12.0 [facility] Comment on above: Performed By: #### V [id number] #### [facility] [address] [place] [address] Dr. Helio Cee NEUT # 13.3 103/ul Critically high 1.4-6.5 [facility] Comment on above: Performed By: #### V [id number] #### [facility] [address] [place] [address] Dr. Helio Cee Neutrophils/100 WBC (Bld) 86.7 % Critically high 43.0-75.0 [facility] Comment on above: Performed By: #### V [id number] #### [facility] [address] [place] [address] Dr. Helio Cee Platelet mean volume (Bld) [Entitic vol] 11.4 fL Normal 9.5-13.5 [facility] Comment on above: Performed By: #### V [id number] #### [facility] [address] [place] [address] Dr. Helio Cee PLT 215 103/ul Normal 150-450 [facility] Comment on above: Performed By: #### V [id number] #### [facility] [address] [place] [address] Dr. Helio Cee RBC 3.82 106/ul Critically low 4.20-5.40 [facility] Comment on above: Performed By: #### V [id number] #### [facility] [address] [place] [address] Dr. Helio Cee WBC 15.3 103/ul Critically high 4.0-11.0 [facility] Comment on above: Performed By: #### V [id number] #### [facility] [address] [place] [address] Dr. Helio Cee PROF 14(COMP METB)on 022 Albumin [Mass/Vol] 2.8 g/dL Critically low 3.4-5.0 [facility] Comment on above: Performed By: #### E RUR #### [facility] [address] [place] [address] Dr. Helio Cee Albumin/Globulin [Mass ratio] 0.8 {ratio} Normal [facility] Comment on above: Performed By: #### E RUR #### [facility] [address] [place] [address] Dr. Helio Cee ALP [Catalytic activity/Vol] 74 U/L Normal 46-116 [facility] Comment on above: Performed By: #### E RUR #### [facility] [address] [place] [address] Dr. Helio Cee ALT [Catalytic activity/Vol] 21 U/L Normal 14-59 [facility] Comment on above: Performed By: #### E RUR #### [facility] [address] [place] [address] Dr. Helio Cee Anion gap [Moles/Vol] 13.5 mmol/L Normal [facility] Comment on above: Performed By: #### E RUR #### [facility] [address] [place] [address] Dr. Helio Cee AST [Catalytic activity/Vol] 11 U/L Critically low 15-37 [facility] Comment on above: Performed By: #### E RUR #### [facility] [address] [place] [address] Dr. Helio Cee Bilirubin [Mass/Vol] 0.5 mg/dL Normal 0.2-1.0 [facility] Comment on above: Performed By: #### E RUR #### [facility] [address] [place] [address] Dr. Helio Cee Calcium [Mass/Vol] 8.4 mg/dL Critically low 8.5-10.1 [facility] Comment on above: Performed By: #### E RUR #### [facility] [address] [place] [address] Dr. Helio Cee Chloride [Moles/Vol] 107 mmol/L Normal 98-107 [facility] Comment on above: Performed By: #### E RUR #### [facility] [address] [place] [address] Dr. Helio Cee CO2 [Moles/Vol] 21.0 mmol/L Normal 21.0-32.0 [facility] Comment on above: Performed By: #### E RUR #### [facility] [address] [address] [address] Helio Cee Creatinine [Mass/Vol] 1.07 mg/dL Critically high 0.55-1.02 [facility] Comment on above: Performed By: #### E RUR #### [facility] [address] [address] [address] Helio Cee EGFR-AF SERBIAN >60 Normal >=60 [facility] Comment on above: Performed By: #### E RUR #### [facility] [address] [address] [address] Helio Cee EGFR-NON AF SERBIAN 50 mL/min/1.73m2 Critically low >=60 [facility] Comment on above: Performed By: #### E RUR #### [facility] [address] [address] [address] Helio Cee Globulin (S) [Mass/Vol] 3.4 g/dL Normal [facility] Comment on above: Performed By: #### E RUR #### [facility] [address] [address] [address] Helio Cee Glucose [Mass/Vol] 109 mg/dL Critically high 74-106 [facility] Comment on above: Performed By: #### E RUR #### [facility] [address] [address] [address] Helio Cee Potassium [Moles/Vol] 3.5 mmol/L Normal 3.5-5.1 [facility] Comment on above: Performed By: #### E RUR #### [facility] [address] [address] [address] Helio Cee Protein [Mass/Vol] 6.2 g/dL Critically low 6.4-8.2 [facility] Comment on above: Performed By: #### E RUR #### [facility] [address] [address] [address] Helio Cee Sodium [Moles/Vol] 138 mmol/L Normal 136-145 [facility] Comment on above: Performed By: #### E RUR #### [facility] [address] [address] [address] Helio Cee Urea nitrogen [Mass/Vol] 25.0 mg/dL Critically high 7.0-18.0 [facility] Comment on above: Performed By: #### E RUR #### [facility] [address] [address] [address] Helio Cee Urea nitrogen/Creatinine [Mass ratio] 23.4 mg/mg Normal [facility] Comment on above: Performed By: #### E RUR #### [facility] [address] [address] [address] Helio Cee BNPon 11-18-2021 Natriuretic peptide B (Bld) [Mass/Vol] 386.0 pg/mL Normal <=900.0 [facility] Comment on above: Performed By: #### B BENEFITS MANAGER, HSTROPN, BMP ####[facility] [id number] [address]Dr. Helio Cee CBC AUTO DIFFon 11-18-2021 BASO # 0.0 103/ul Normal 0.0-0.1 [facility] Comment on above: Performed By: #### V [id number] #### [facility] [address] [place] [address] Dr. Helio Cee Basophils/100 WBC (Bld) 0.3 % Normal 0.2-2.0 [facility] Comment on above: Performed By: #### V [id number] #### [facility] [address] [place] [address] Dr. Helio Cee EO # 0.0 103/ul Normal 0.0-0.7 [facility] Comment on above: Performed By: #### V [id number] #### [facility] [address] [place] [address] Dr. Helio Cee Eosinophils/100 WBC (Bld) 0.1 % Critically low 0.9-7.0 [facility] Comment on above: Performed By: #### V [id number] #### [facility] [address] [place] [address] Dr. Helio Cee Erythrocyte distribution width (RBC) [Ratio] 14.4 % Normal 11.0-15.0 [facility] Comment on above: Performed By: #### V [id number] #### [facility] [address] [place] [address] Dr. Helio Cee Hematocrit (Bld) [Volume fraction] 43.6 % Normal 36.0-48.0 [facility] Comment on above: Performed By: #### V [id number] #### [facility] [address] [place] [address] Dr. Helio Cee Hemoglobin (Bld) [Mass/Vol] 13.4 g/dL Normal 12.0-16.0 [facility] Comment on above: Performed By: #### V [id number] #### [facility] [address] [place] [address] Dr. Helio Cee IG # 0.03 10e3/ul Normal 0.00-0.03 [facility] Comment on above: Performed By: #### V [id number] #### [facility] [address] [place] [address] Dr. Helio Cee IG % 0.3 % Normal 0.0-0.5 [facility] Comment on above: Performed By: #### V [id number] #### [facility] [address] [place] [address] Dr. Helio Cee LYMPH # 0.4 103/ul Critically low 1.2-3.8 [facility] Comment on above: Performed By: #### V [id number] #### [facility] [address] [place] [address] Dr. Helio Cee Lymphocytes/100 WBC (Bld) 4.0 % Critically low 20.5-60.0 [facility] Comment on above: Performed By: #### V [id number] #### [facility] [address] [place] [address] Dr. Helio Cee MANUAL DIFF REQ NO Normal [facility] Comment on above: Performed By: #### V [id number] #### [facility] [address] [place] [address] Dr. Helio Cee MCH (RBC) [Entitic mass] 29.6 pg Normal 26.7-34.0 [facility] Comment on above: Performed By: #### V [id number] #### [facility] [address] [place] [address] Dr. Helio Cee MCHC (RBC) [Mass/Vol] 30.7 g/dL Normal 29.9-35.2 [facility] Comment on above: Performed By: #### V [id number] #### [facility] [address] [place] [address] Dr. Helio Cee MCV (RBC) [Entitic vol] 96.5 fL Normal 81.0-99.0 [facility] Comment on above: Performed By: #### V [id number] #### [facility] [address] [place] [address] Dr. Helio Cee MONO # 0.6 103/ul Normal 0.3-0.8 [facility] Comment on above: Performed By: #### V [id number] #### [facility] Laboratory [address] [place] [address] Dr. Helio Cee Monocytes/100 WBC (Bld) 5.4 % Normal 1.7-12.0 [facility] Comment on above: Performed By: #### V [id number] #### [facility] [address] [place] [address] Dr. Helio Cee NEUT # 9.7 103/ul Critically high 1.4-6.5 [facility] Comment on above: Performed By: #### V [id number] #### [facility] [address] [place] [address] Dr. Helio Cee Neutrophils/100 WBC (Bld) 89.9 % Critically high 43.0-75.0 [facility] Comment on above: Performed By: #### V [id number] #### [facility] [address] [place] [address] Dr. Helio Cee Platelet mean volume (Bld) [Entitic vol] 10.9 fL Normal 9.5-13.5 [facility] Comment on above: Performed By: #### V [id number] #### [facility] [address] [place] [address] Dr. Helio Cee PLT 265 103/ul Normal 150-450 [facility] Comment on above: Performed By: #### V [id number] #### [facility] [address] [place] [address] Dr. Helio Cee RBC 4.52 106/ul Normal 4.20-5.40 [facility] Comment on above: Performed By: #### V [id number] #### [facility] [address] [place] [address] Dr. Helio Cee WBC 10.7 103/ul Normal 4.0-11.0 [facility] Comment on above: Performed By: #### V [id number] #### [facility] [address] [place] [address] Dr. Helio Cee CULTURE BLOODon 11-18-2021 Microscopic examination of blood, culture Culture Observations: NO GROWTH AT 5 DAYS. Normal [facility] Comment on above: Performed By: #### B [id number] #### [facility] [address] [place] [address] Dr. Helio Cee Microscopic examination of blood, culture Culture Observations: NO GROWTH AT 5 DAYS. Normal [facility] Comment on above: Performed By: #### B [id number] #### [facility] [address] [place] [address] Dr. Helio Cee Covid-19 PCR (CVDTB)on SARS-CoV-2 (COVID-19) RNA KIMMY+probe Ql (Unsp spec) Not detected Normal NOT DETECTED [facility] Comment on above: Result Comment: When [...] for this test is supported by the [place] of Health and Human Service's declaration that [...] used). Performed By: #### E RUR #### [facility] [address] [place] [address] Dr. Helio Cee ER URINE PROFILEon 2 Bilirubin Ql (U) Negative Normal NEGATIVE [facility] Comment on above: Performed By: #### E RUR #### [facility] [address] [place] [address] Dr. Helio Cee Clarity (U) CLEAR Normal CLEAR [facility] Comment on above: Performed By: #### E RUR #### [facility] [address] [place] [address] Dr. Helio Cee Color (U) LT. YELLOW Normal YELLOW [facility] Comment on above: Performed By: #### E RUR #### [facility] [address] [place] [address] Dr. Helio Cee ERUAHD A micrscopic examination will be performed if indicated. Normal [facility] Comment on above: Performed By: #### E RUR #### [facility] [address] [place] [address] Dr. Helio Cee Glucose Ql (U) Negative Normal NEGATIVE [facility] Comment on above: Performed By: #### E RUR #### [facility] [address] [place] [address] Dr. Helio Cee Hemoglobin Ql (U) Negative Normal NEGATIVE [facility] Comment on above: Performed By: #### E RUR #### [facility] [address] [place] [address] Dr. Helio Cee Ketones Ql (U) Negative Normal NEGATIVE [facility] Comment on above: Performed By: #### E RUR #### [facility] [address] [place] [address] Dr. Helio Cee LEUKOCYTES Negative Normal NEGATIVE [facility] Comment on above: Performed By: #### E RUR #### [facility] [address] [address] [address] Helio Cee Nitrite Ql (U) Negative Normal NEGATIVE [facility] Comment on above: Performed By: #### E RUR #### [facility] [address] [place] [address] Dr. Helio Cee pH (U) 5.5 [pH] Normal 5-9 [facility] Comment on above: Performed By: #### E RUR #### [facility] [address] [place] [address] Dr. Helio Cee SPEC GRAVITY 1.015 Normal 1.005-<=1.02 5 [facility] Comment on above: Performed By: #### E RUR #### [facility] [address] [place] [address] Dr. Helio Cee UA PROTEIN Negative Normal NEGATIVE/ TRACE [facility] Comment on above: Performed By: #### E RUR #### [facility] [address] [place] [address] Dr. Helio Cee UR MICRO IND NOT INDICATED Normal [facility] Comment on above: Performed By: #### E RUR #### [facility] [address] [place] [address] Dr. Helio Cee Urobilinogen Qn (U) 0.2 {Nevaeh'U}/dL Normal 0.2 - 1. 0 [facility] Comment on above: Performed By: #### E RUR #### [facility] [address] [place] [address] Dr. Helio Cee PROF CHEM 8 (BAS METB)on Anion gap [Moles/Vol] 13.6 mmol/L Normal [facility] Comment on above: Performed By: #### B BENEFITS MANAGER, HSTROPN, BMP ####[facility] [address] [address]Dr. Helio Cee Calcium [Mass/Vol] 9.1 mg/dL Normal 8.5-10.1 [facility] Comment on above: Performed By: #### B BENEFITS MANAGER, HSTROPN, BMP ####[facility] [address] [address]Dr. Helio Cee Chloride [Moles/Vol] 110 mmol/L Critically high 98-107 [facility] Comment on above: Performed By: #### B BENEFITS MANAGER, HSTROPN, BMP ####[facility] [address] [place], [place] [address]Dr. Helio Cee CO2 [Moles/Vol] 22.9 mmol/L Normal 21.0-32.0 [facility] Comment on above: Performed By: #### B BENEFITS MANAGER, HSTROPN, BMP ####[facility] [address] [place], [place] [address]Dr. Helio Cee Creatinine [Mass/Vol] 1.47 mg/dL Critically high 0.55-1.02 [facility] Comment on above: Performed By: #### B BENEFITS MANAGER, HSTROPN, BMP ####[facility] [address] [place], [place] [address]Dr. Helio Cee EGFR-AF SERBIAN 42 mL/min/1.73m2 Critically low >=60 [facility] Comment on above: Performed By: #### B BENEFITS MANAGER, HSTROPN, BMP ####[facility] [address] [place], [place] [address]Dr. Helio Cee EGFR-NON AF SERBIAN 35 mL/min/1.73m2 Critically low >=60 [facility] Comment on above: Performed By: #### B BENEFITS MANAGER, HSTROPN, BMP ####[facility] [address] [place], [place] [address]Dr. Helio Cee Glucose [Mass/Vol] 120 mg/dL Critically high 74-106 [facility] Comment on above: Performed By: #### B BENEFITS MANAGER, HSTROPN, BMP ####[facility] [address] [place], [place] [address]Dr. Helio Cee Potassium [Moles/Vol] 3.5 mmol/L Normal 3.5-5.1 [facility] Comment on above: Performed By: #### B BENEFITS MANAGER, HSTROPN, BMP ####[facility] [address] [id number]. Helio Cee Sodium [Moles/Vol] 143 mmol/L Normal 136-145 [facility] Comment on above: Performed By: #### B BENEFITS MANAGER, HSTROPN, BMP ####[facility] [address] [id number]. Helio Cee Urea nitrogen [Mass/Vol] 29.0 mg/dL Critically high 7.0-18.0 [facility] Comment on above: Performed By: #### B BENEFITS MANAGER, HSTROPN, BMP ####[facility] [address] [address]Dr. Helio Cee Urea nitrogen/Creatinine [Mass ratio] 19.7 mg/mg Normal [facility] Comment on above: Performed By: #### B BENEFITS MANAGER, HSTROPN, BMP ####[facility] [address] [address]Dr. Helio Cee TROPONIN, HIGH SENSITIVITYon 11-18-2021 HSTROP 8.2 pg/mL Normal 4.0-51.3 [facility] Comment on above: Result Comment: CUT- OFF POINTS HAVE BEEN ESTABLISHED BASED ON THE FOURTH UNIVERSAL DEFINITIONS OF MYOCARDIAL INFARCTION. THE UPPER REFERENCE LIMIT (URL) OF TROPONIN, DEFINED THE 99TH PERCENTILE OF cTnI DISTRIBUTION IN A REFERENCE POPULATION, HAS BEEN CONFIRMED THE DECISION THRESHOLD FOR MS DIAGNOSIS. Performed By: #### B BENEFITS MANAGER, HSTROPN, BMP ####[facility] [address] [id number]. Helio Cee XR CHEST 1 Von 11-18-2021 [...] by: EHSAN MILLER Date: 2021-11-18 10:38 Normal [facility] BNPon 10-25-2021 Natriuretic peptide B (Bld) [Mass/Vol] 396.0 pg/mL Normal <=900.0 [facility] Comment on above: Performed By: #### V [id number] #### [facility] [address] [place] [address] Dr. Helio Cee CBC AUTO DIFFon 10-25-2021 BASO # 0.1 103/ul Normal 0.0-0.1 [facility] Comment on above: Performed By: #### E RUR #### [facility] [address] [place] [address] Dr. Helio Cee Basophils/100 WBC (Bld) 1.0 % Normal 0.2-2.0 [facility] Comment on above: Performed By: #### E RUR #### [facility] [address] [place] [address] Dr. Helio Cee EO # 0.2 103/ul Normal 0.0-0.7 [facility] Comment on above: Performed By: #### E RUR #### [facility] [address] [place] [address] Dr. Helio Cee Eosinophils/100 WBC (Bld) 2.7 % Normal 0.9-7.0 [facility] Comment on above: Performed By: #### E RUR #### [facility] [address] [place] [address] Dr. Helio Cee Erythrocyte distribution width (RBC) [Ratio] 14.6 % Normal 11.0-15.0 [facility] Comment on above: Performed By: #### E RUR #### [facility] [address] [place] [address] Dr. Helio Cee Hematocrit (Bld) [Volume fraction] 44.8 % Normal 36.0-48.0 [facility] Comment on above: Performed By: #### E RUR #### [facility] [address] [place] [address] Dr. Helio Cee Hemoglobin (Bld) [Mass/Vol] 13.8 g/dL Normal 12.0-16.0 [facility] Comment on above: Performed By: #### E RUR #### [facility] [address] [place] [address] Dr. Helio Cee IG # 0.03 10e3/ul Normal 0.00-0.03 [facility] Comment on above: Performed By: #### E RUR #### [facility] [address] [place] [address] Dr. Helio Cee IG % 0.3 % Normal 0.0-0.5 [facility] Comment on above: Performed By: #### E RUR #### [facility] [address] [place] [address] Dr. Helio Cee LYMPH # 1.6 103/ul Normal 1.2-3.8 [facility] Comment on above: Performed By: #### E RUR #### [facility] [address] [place] [address] Dr. Helio Cee Lymphocytes/100 WBC (Bld) 18.5 % Critically low 20.5-60.0 [facility] Comment on above: Performed By: #### E RUR #### [facility] [address] [place] [address] Dr. Helio Cee MANUAL DIFF REQ NO Normal [facility] Comment on above: Performed By: #### E RUR #### [facility] [address] [place] [address] Dr. Helio Cee MCH (RBC) [Entitic mass] 29.9 pg Normal 26.7-34.0 [facility] Comment on above: Performed By: #### E RUR #### [facility] [address] [place] [address] Dr. Helio Cee MCHC (RBC) [Mass/Vol] 30.8 g/dL Normal 29.9-35.2 [facility] Comment on above: Performed By: #### E RUR #### [facility] [address] [place] [address] Dr. Helio Cee MCV (RBC) [Entitic vol] 97.2 fL Normal 81.0-99.0 [facility] Comment on above: Performed By: #### E RUR #### [facility] [address] [place] [address] Dr. Helio Cee MONO # 0.6 103/ul Normal 0.3-0.8 [facility] Comment on above: Performed By: #### E RUR #### [facility] [address] [place] [address] Dr. Helio Cee Monocytes/100 WBC (Bld) 7.0 % Normal 1.7-12.0 [facility] Comment on above: Performed By: #### E RUR #### [facility] [address] [place] [address] Dr. Helio Cee NEUT # 6.1 103/ul Normal 1.4-6.5 [facility] Comment on above: Performed By: #### E RUR #### [facility] [address] [place] [address] Dr. Helio Cee Neutrophils/100 WBC (Bld) 70.5 % Normal 43.0-75.0 [facility] Comment on above: Performed By: #### E RUR #### [facility] [address] [place] [address] Dr. Helio Cee Platelet mean volume (Bld) [Entitic vol] 11.0 fL Normal 9.5-13.5 [facility] Comment on above: Performed By: #### E RUR #### [facility] [address] [place] [address] Dr. Helio Cee PLT 292 103/ul Normal 150-450 [facility] Comment on above: Performed By: #### E RUR #### [facility] [address] [place] [address] Dr. Helio Cee RBC 4.61 106/ul Normal 4.20-5.40 [facility] Comment on above: Performed By: #### E RUR #### [facility] [address] [place] [address] Dr. Helio Cee WBC 8.6 103/ul Normal 4.0-11.0 [facility] Comment on above: Performed By: #### E RUR #### [facility] [address] [address] [address] Helio Cee ECHOCARDIO M/2D COMPLETEon 0 10-25-2021 ECHOCARDIO M/2D COMPLETE Patient: AARON LEWIS Exam Date: 10/25/2021 : 1945 Gender:F Ordering : DR JEREMIAH REED M.D. Admission #: [id number] Family : Order #: [id number] CLICK HERE TO VIEW EXAM ECHOCARDIOGRAM REPORT [...] Area(A4C): 20.40 cm2 Left Atrium Systolic Volume(A2C): 97968 mm3 Left Atrium Systolic Volume(A4C): 28879 mm3 Mitral Valve MV E to A Ratio: 0.80 Deceleration [place]: 4670 mm/s2 Mitral Valve A-Wave Peak Velocity: [...] on 10/25/2021 at 19:31 Normal [facility] MAMM SCREEN 3D EBONI CADon 10-25-2021 MG MAMM SCREEN 3D EBONI CAD Patient: AARON LEWIS Exam Date: 10/25/2021 : 1945 Gender:F Ordering : DR JEREMIAH REED M.D. Admission #: [id number] Family : Order #: [id number] CLICK HERE TO VIEW EXAM RADIOLOGY REPORT [...] breast cancer at age 72. LOCATION: [facility] BREAST COMPOSITION: Heterogeneously dense,which may obscure [...] Miller M.D. on 10/25/2021 at 15:33 Normal [facility] PROF 14(COMP METB)on 022 Albumin [Mass/Vol] 3.8 g/dL Normal 3.4-5.0 [facility] Comment on above: Performed By: #### V [id number] #### [facility] [address] [address] [address] Helio Cee Albumin/Globulin [Mass ratio] 1.1 {ratio} Normal [facility] Comment on above: Performed By: #### V [id number] #### [facility] [address] [address] [address] Helio Cee ALP [Catalytic activity/Vol] 97 U/L Normal 46-116 [facility] Comment on above: Performed By: #### V [id number] #### [facility] [address] [address] [address] Helio Cee ALT [Catalytic activity/Vol] 31 U/L Normal 14-59 [facility] Comment on above: Performed By: #### V [id number] #### [facility] [address] [address] [address] Helio Cee Anion gap [Moles/Vol] 11.0 mmol/L Normal [facility] Comment on above: Performed By: #### V [id number] #### [facility] [address] [address] [address] Helio Cee AST [Catalytic activity/Vol] 13 U/L Critically low 15-37 [facility] Comment on above: Performed By: #### V [id number] #### [facility] [address] [address] [address] Helio Cee Bilirubin [Mass/Vol] 0.4 mg/dL Normal 0.2-1.0 [facility] Comment on above: Performed By: #### V [id number] #### [facility] [address] [address] [address] Helio Cee Calcium [Mass/Vol] 9.3 mg/dL Normal 8.5-10.1 [facility] Comment on above: Performed By: #### V [id number] #### [facility] [address] [address] [address] Helio Cee Chloride [Moles/Vol] 108 mmol/L Critically high 98-107 [facility] Comment on above: Performed By: #### V [id number] #### [facility] [address] [address] [address] Helio Cee CO2 [Moles/Vol] 28.4 mmol/L Normal 21.0-32.0 [facility] Comment on above: Performed By: #### V [id number] #### [facility] [address] [address] [address] Helio Cee Creatinine [Mass/Vol] 1.09 mg/dL Critically high 0.55-1.02 [facility] Comment on above: Performed By: #### V [id number] #### [facility] [address] [place] [address] Dr. Helio Cee EGFR-AF SERBIAN 59 mL/min/1.73m2 Critically low >=60 [facility] Comment on above: Performed By: #### V [id number] #### [facility] [address] [address] [address] Helio Cee EGFR-NON AF SERBIAN 49 mL/min/1.73m2 Critically low >=60 [facility] Comment on above: Performed By: #### V [id number] #### [facility] [address] [address] [address] Helio Cee Globulin (S) [Mass/Vol] 3.4 g/dL Normal [facility] Comment on above: Performed By: #### V [id number] #### [facility] [address] [address] [address] Helio Cee Glucose [Mass/Vol] 100 mg/dL Normal 74-106 [facility] Comment on above: Performed By: #### V [id number] #### [facility] [address] [address] [address] Helio Cee Potassium [Moles/Vol] 4.4 mmol/L Normal 3.5-5.1 [facility] Comment on above: Performed By: #### V [id number] #### [facility] [address] [place] [address] Dr. Helio Cee Protein [Mass/Vol] 7.2 g/dL Normal 6.4-8.2 [facility] Comment on above: Performed By: #### V [id number] #### [facility] [address] [place] [address] Dr. Helio Cee Sodium [Moles/Vol] 143 mmol/L Normal 136-145 [facility] Comment on above: Performed By: #### V [id number] #### [facility] [address] [place] [address] Dr. Helio Cee Urea nitrogen [Mass/Vol] 24.0 mg/dL Critically high 7.0-18.0 [facility] Comment on above: Performed By: #### V [id number] #### [facility] [address] [place] [address] Dr. Helio Cee Urea nitrogen/Creatinine [Mass ratio] 22.0 mg/mg Normal [facility] Comment on above: Performed By: #### V [id number] #### [facility] [address] [place] [address] Dr. Helio Cee TSHon 10-25-2021 TSH 0.635 uIU/mL Normal 0.358-3.740 [facility] Comment on above: Performed By: #### V [id number] #### [facility] [address] [place] [address] Dr. Helio Cee Vital Signs Date Time Vital Sign Value Performing Clinician Facility 12-25-2023 12:37-0400 Blood Pressure Location BRENDA MIAH [facility] 12-25-2023 12:37-0400 Body temperature 98.6 [degF] BRENAD MIAH [facility] 12-25-2023 12:37-0400 Diastolic blood pressure 86 mm[Hg] BRENDA MIAH [facility] 12-25-2023 12:37-0400 Heart rate 70 /min BRENDA MIAH [facility] 12-25-2023 12:37-0400 Respiratory rate 16 /min BRENDA MIAH [facility] 12-25-2023 12:37-0400 Systolic blood pressure 137 mm[Hg] BRENDA MIAH [facility] 09-26-2023 15:39-0400 Blood Pressure Location BRENDA MIAH [facility] 09-26-2023 15:39-0400 Diastolic blood pressure 84 mm[Hg] BRENDA MIAH [facility] 09-26-2023 15:39-0400 Heart rate 68 /min BRENDA MIAH [facility] 09-26-2023 15:39-0400 Respiratory rate 16 /min BRENDA MIAH [facility] 09-26-2023 15:39-0400 Systolic blood pressure 132 mm[Hg] BRENDA MIAH [facility] 08-28-2023 14:59-0400 Blood Pressure Location BRENDA MIAH [facility] 08-28-2023 14:59-0400 Body temperature 98.24 [degF] BRENDA MIAH [facility] 08-28-2023 14:59-0400 Diastolic blood pressure 80 mm[Hg] BRENDA MIAH [facility] 08-28-2023 14:59-0400 Heart rate 92 /min BRENDA MIAH [facility] 08-28-2023 14:59-0400 Respiratory rate 16 /min BRENDA MIAH [facility] 08-28-2023 14:59-0400 Systolic blood pressure 132 mm[Hg] BRENDA MIAH [facility] 06-05-2023 12:55-0500 Blood Pressure Location BRENDA MIAH [facility] 06-05-2023 12:55-0500 Diastolic blood pressure 88 mm[Hg] BRENDA MIAH [facility] 06-05-2023 12:55-0500 Heart rate 74 /min BRENDA MIAH [facility] 06-05-2023 12:55-0500 Respiratory rate 16 /min BRENDA MIAH [facility] 06-05-2023 12:55-0500 Systolic blood pressure 134 mm[Hg] BRENDA MARIN [facility] 04-30-2023 15:30-0500 Body height 161.29 cm Jeremiah Reed Other [employer] Other 04-30-2023 15:30-0500 Body mass index (BMI) [Ratio] 35.29 kg/m2 Jeremiah Reed Other [employer] [facility] 04-30-2023 15:30-0500 Body weight 91.81 kg Jeremiah Reed Other [employer] [facility] 04-30-2023 15:30-0500 Diastolic blood pressure 74 mm[Hg] Jeremiah Reed Other [employer] Other 04-30-2023 15:30-0500 Systolic blood pressure 109 mm[Hg] Jeremiah Reed Other [employer] Other 04-13-2023 14:40-0500 Hourly Rounding [facility] 04-13-2023 14:40-0500 Promise to Return [facility] 04-13-2023 13:00-0500 Diastolic blood pressure 77 mm[Hg] [facility] 04-13-2023 13:00-0500 Heart rate 78 /min [facility] 04-13-2023 13:00-0500 [facility] 04-13-2023 13:00-0500 Promise to Return [facility] 04-13-2023 13:00-0500 Respiratory rate 16 /min Ahmad [facility] 04-13-2023 13:00-0500 Systolic blood pressure 127 mm[Hg] [facility] 12:13-0500 Heart rate 80 /min [facility] 04-13-2023 12:13-0500 SaO2% (BldA) [Mass fraction] 95 % [facility] 04-13-2023 12:12-0500 Body temperature 97.16 [degF] [facility] 04-13-2023 12:11-0500 Diastolic blood pressure 78 mm[Hg] [facility] 04-13-2023 12:11-0500 Mean blood pressure 94 mm[Hg] [facility] 04-13-2023 12:11-0500 Systolic blood pressure 125 mm[Hg] [facility] 04-13-2023 12:00-0500 [facility] 04-13-2023 12:00-0500 [facility] 04-13-2023 09:10-0500 Diastolic blood pressure 70 mm[Hg] [facility] 04-13-2023 09:10-0500 Heart rate 87 /min [facility] 04-13-2023 09:10-0500 Mean blood pressure 90 mm[Hg] [facility] 04-13-2023 09:10-0500 Respiratory rate 17 /min [facility] 04-13-2023 09:10-0500 Systolic blood pressure 130 mm[Hg] [facility] 04-13-2023 08:00-0500 SaO2% (BldA) [Mass fraction] 93 % [facility] 04-13-2023 07:29-0500 Heart rate 89 /min [facility] 04-13-2023 07:29-0500 SaO2% (BldA) [Mass fraction] 94 % [facility] 04-13-2023 07:29-0500 Mean blood pressure 88 mm[Hg] Jacintoag [facility] 04-13-2023 07:29-0500 Body temperature 97.88 [degF] [facility] 04-13-2023 05:00-0500 Blood Pressure Location [facility] 04-13-2023 05:00-0500 Heart rate 95 /min [facility] 04-13-2023 05:00-0500 Mean blood pressure 100 mm[Hg] kittyag [facility] 04-13-2023 00:18-0500 Blood Pressure Location [facility] 04-13-2023 00:18-0500 Body temperature 97.52 [degF] [facility] 04-12-2023 20:33-0500 Body temperature 97.34 [degF] [facility] 04-12-2023 20:33-0500 Mean blood pressure 88 mm[Hg] [facility] 04-12-2023 18:03-0500 Blood Pressure Location [facility] 04-12-2023 16:49-0500 Respiratory rate 22 /min [facility] 04-12-2023 15:00-0500 Respiratory rate 20 /min [facility] 04-12-2023 12:24-0500 gluc 88 mg/dL [facility] 04-12-2023 12:24-0500 gluc [facility] 04-12-2023 12:19-0500 Body temperature 97.7 [degF] [facility] 03-29-2023 15:30-0500 Body height 161.29 cm Jeremiah Reed Other [facility] 03-29-2023 15:30-0500 Body mass index (BMI) [Ratio] 37.14 kg/m2 Jeremiah Reed Other [facility] 03-29-2023 15:30-0500 Body weight 96.62 kg Jeremiah Reed Other [facility] 03-29-2023 15:30-0500 Diastolic blood pressure 85 mm[Hg] Jeremiah Reed Other [facility] 03-29-2023 15:30-0500 Systolic blood pressure 144 mm[Hg] Jeremiah Reed Other [facility] Other 06-21-2022 14:42-0500 Blood Pressure Location BRENDA MARIN [facility] Encounters Encounter Date Encounter Type Care Provider Facility Start: 03-04-2024 ambulatory BRENDA Eric ty:AYDE Terrazas Start: 02-04-2024 End: 02-04-2024 ambulatory Drake Delatorre MD Facility: You Start: 01-24-2024 End: 01-24-2024 ambulatory DIDIER MALDONADO Not Available Start: 01-07-2024 End: 01-07-2024 ambulatory Drake Delatorre MD Facility: You Start: 12-27-2023 End: 12-27-2023 ambulatory BRENDA MARIN [facility] Start: 12-27-2023 End: 12-27-2023 Patient encounter procedure BRENDA MARIN [facility] Start: 12-25-2023 End: 12-25-2023 ambulatory BRENDA MARIN Facility:[facility] Start: 12-25-2023 End: 12-25-2023 Patient encounter procedure BRENDA MARIN [facility] Start: 12-17-2023 End: 12-17-2023 ambulatory Drake Delatorre MD Facility:[facility] Start: 12-03-2023 End: 12-03-2023 ambulatory Cayden ROBB Facility:[facility] Start: 12-03-2023 End: 12-03-2023 Patient encounter procedure Cayden ROBB [facility] Start: 11-26-2023 End: 11-26-2023 ambulatory Alexandro CARMONA Facility:[facility] Start: 11-26-2023 End: 11-26-2023 Patient encounter procedure Alexandro CARMONA [facility] Start: 11-08-2023 End: 11-08-2023 ambulatory DIDIER MALDONADO Not Available Start: 10-29-2023 End: 10-29-2023 ambulatory Drake Delatorre MD Facility: [facility] Start: 10-15-2023 End: 10-15-2023 ambulatory Drake Delatorre MD Facility:[facility] Start: 09-26-2023 End: 09-26-2023 ambulatory BRENDA MARIN Facility:[facility] Start: 09-26-2023 End: 09-26-2023 Patient encounter procedure BRENDA MARIN [facility] Start: 09-17-2023 End: 09-17-2023 ambulatory Drake Delatorre MD Facility:[facility] Start: 08-30-2023 End: 08-30-2023 ambulatory DIDIER Richy JOEL Not Available Start: 08-28-2023 End: 08-28-2023 ambulatory BRENDA E IMAH Facility:[facility] Start: 08-28-2023 End: 08-28-2023 Patient encounter procedure BRENDA E MIAH [facility] Start: 07-23-2023 End: 07-23-2023 ambulatory Cayden ROBB Facility:[facility] Start: 07-23-2023 End: 07-23-2023 Patient encounter procedure Cayden Hollins CEZAR [facility] Start: 07-09-2023 End: 07-09-2023 ambulatory BRENDA E MIAH Facility:[facility] Start: 06-20-2023 End: 06-20-2023 ambulatory Jeremiah Reed Other [facility] Other Start: 06-20-2023 Telephone encounter Jeremiah Reed [facility] Start: 06-05-2023 End: 06-05-2023 ambulatory BRENDA E MIAH Facility:[facility] Start: 06-05-2023 End: 06-05-2023 Lab Drop off BRENDA E MIAH [facility] Start: 06-05-2023 End: 06-05-2023 ambulatory BRENDA E MIAH Facility:[facility] Start: 06-05-2023 End: 06-05-2023 Patient encounter procedure BRENDA E MIAH [facility] Start: 04-30-2023 End: 04-30-2023 ambulatory Jeremiah Reed Other [facility] Other Start: 04-30-2023 Office outpatient vi sit [address] [facility] Start: 04-30-2023 Telephone encounter Jeremiah Derek [facility] Start: 04-17-2023 End: 04-17-2023 ambulatory Jeremiah Reed Other [facility] Other Start: 04-17-2023 Telephone encounter Jeremiah Derek [facility] Start: 04-13-2023 End: 04-13-2023 ambulatory Ray Fofana Other [facility] Other Start: 04-13-2023 Telephone encounter Ray Fofana [facility] Start: 04-12-2023 End: 04-13-2023 ambulatory Efrain Kurtz Facility:[facility] Start: 04-12-2023 End: 04-13-2023 Observation Efrain Kurtz [facility] Start: 04-09-2023 End: 04-09-2023 ambulatory Drake Delatorre MD Facility: [facility] Start: 03-30-2023 End: 03-30-2023 ambulatory Jeremiah Reed Other [facility] Other Start: 03-30-2023 Telephone encounter Jeremiah Derek [facility] Start: 03-29-2023 End: 03-29-2023 ambulatory Jeremiah Reed Other [facility] Other Start: 03-29-2023 Transitional care manage srvc 14 day discharge Jeremiah Reed [facility] Start: 03-05-2023 End: 03-05-2023 ambulatory Drake Delatorre MD Facility:[facility] Start: 09-01-2022 End: 09-02-[address] JEREMIAH REED Facility: Start: 08-29-2022 End: 08-30-2022 ambulatory BARBARA LAKSHMIPATHY . Facility:[facility] Start: 08-21-2022 End: 08-22-[address] EHSAN MILLER Facility:[facility] Start: 08-10-2022 End: 08-11-2022 ambulatory BRENT MALDONADO Facility:[facility] Start: 06-21-2022 End: 06-21-2022 Patient encounter procedure BRENDA MARIN [facility] Start: 06-12-2022 End: 06-13-2022 ambulatory [...] Facility:[facility] Start: 11-24-[address] JEREMIAH REED [facility] ity:[facility]1 Start: 11-22-2021 End: 11-22-[address] SHIREEN ORTEGA Facility:[facility] Start: 11-18-2021 End: 11-21-2021 Evaluation and management of inpatient DR HARSHAL MENDIETA Facility:[facility] Start: 10-25-2021 End: 10-26-[address] EHSAN MILLER Facility:[facility] Start: 10-24-2018 End: 10-24-2018 Patient encounter procedure Radha Kosta Dong Work Phone: [facility] Start: 08-21-2018 End: 08-21-2018 Patient encounter procedure Radha L Clinjaziel Work Phone: [facility] Start: 06-28-2018 End: 06-28-2018 Patient encounter procedure Radha Dong Work Phone: [facility] Procedures Date Procedure Procedure Detail [...] Influenza vaccination INFLUENZ A VACCINE (Season Ended) [facility] Start: 01-12-2018 Influenza vaccination INFLUENZA VACC INE (#1) [facility] Start: 02-10-2012 Pneumococcal vaccination PNEUM OCOCCAL VACCINE SERIES (1 of 2 - PCV13) [facility] Start: 1997 Protein mass conc COLON CANCER SCREENING DISCUSSION [facility] Start: 1997 Zoster vaccine hzv l derrell for subcutaneous use ZOSTER (SHINGLES) VACCINE (1 of 2) [facility] Start: 1987 Fasting lipid profile LIPID SCREENIN G [facility] Start: 1987 Protein mass conc MAMMOGRAM SC REENING DISCUSSION [facility] Start: 02-10-1968 Screening for malign ant neoplasm of cervix PAP SMEAR DISCUSSION [facility] Start: 1966 Third diphtheria, te tanus and acellular pertussis (DTaP) vaccination TDAP (ADULT) [facility] Start: 1965 Tetanus vaccination [facility]US [facility] Start: 1947 Hepatitis C antibody , confirmatory test HEPATITIS C VIRUS SCREENING [facility] Start: 1947 Screening for osteoporosis DEXA SCAN DISCUSSION [facility] Immunizations Immunization Date Immunization Notes Care Provider Keiko koenig 11-18-2021 SARS-CoV-2 (COVID-19 ) mRNA BNT-162b2 vax BRENDA MARIN [facility] 07-21-2020 SARS-CoV-2 (COVID-19 ) Ad26 vaccine, recombinant BRENDA MARIN [facility] 04-11-2020 influenza virus vaccine, unspecified formulation BRENDA MARIN [facility] 02-02-2011 influenza virus vaccine, unspecified formulation BRENDA MARIN [facility] Payers Date Payer Category Payer Medicare 2022 Unknown 1959 Medicare [id number] 1959 Unknown [id number] 1947 Unknown [id number] 2.16.84 0.1.215542.3.579.2.593 1947 Unknown [id number] 2.16.84 0.1.274277.3.579.2.593 1947 Unknown [id number] 2.16.84 0.1.315753.3.579.2.593 1947 Unknown [id number] 2.16.84 0.1.862926.3.579.2.593 1947 Unknown [id number] 2.16.84 0.1.560100.3.579.2.593 1947 Unknown [id number] 2.16.84 0.1.747120.3.579.2.593 1947 Unknown [id number] 2.16.84 0.1.593899.3.579.2.593 1947 Unknown [id number] 2.16.84 0.1.366562.3.579.2.593 1947 Unknown [id number] 2.16.84 0.1.190750.3.579.2.593 1947 Unknown [id number] 2.16.84 0.1.907677.3.579.2.593 1947 Unknown [id number] 2.16.84 0.1.211925.3.579.2.593 1947 Unknown [id number] 2.16.84 0.1.473866.3.579.2.593 1947 Unknown [id number] 2.16.84 0.1.907099.3.579.2.593 1947 Unknown [id number] 2.16.84 0.1.089932.3.579.2.593 1947 Unknown [id number] 2.16.84 0.1.077772.3.579.2.593 1947 Unknown [id number] 2.16.84 0.1.103702.3.579.2.593 1947 Unknown [id number] 2.16.84 0.1.189206.3.579.2.593 1947 Unknown [id number] 2.16.84 0.1.193448.3.579.2.593 1947 Unknown [id number] 2.16.84 0.1.693229.3.579.2.593 1947 Unknown [id number] 2.16.84 0.1.897521.3.579.2.593 1947 Unknown [id number] 2.16.84 0.1.921800.3.579.2.593 1947 Unknown [id number] 2.16.84 0.1.282285.3.579.2.1259 1947 Unknown [id number] 2.16.84 0.1.062818.3.579.2.1259 1947 Unknown [id number] 2.16.84 0.1.517487.3.579.2.1259 1947 Unknown [id number] 2.16.8 40.1.686549.3.579.2.727 1947 Unknown [id number] 2.16.8 40.1.577143.3.579.2.727 1947 Unknown [id number] 2.16.8 40.1.891443.3.579.2.727 1947 Unknown [id number] 2.16.8 40.1.140248.3.579.2.727 1947 Unknown [id number] 2.16.8 40.1.652613.3.579.2.72 1947 Unknown [id number] 2.16.8 40.1.871775.3.579.2.727 1947 Unknown [id number] 2.16.8 40.1.201872.3.579.2. 1947 Unknown [id number] 2.16.8 40.1.004716.3.579.2.727 1947 Unknown [id number] 2.16.8 40.1.907568.3.579.2.727 1947 Unknown [id number] 2.16.8 40.1.927263.3.579.2.727 1947 Unknown [id number] 2.16.8 40.1.532099.3.579.2.72 1947 Unknown [id number] 2.16.8 40.1.087768.3.579.2.727 1947 Unknown [id number] 2.16.8 40.1.294678.3.579.2.72 1947 Unknown [id number] 2.16. 840.1.458478.3.579.2.196 1947 Unknown [id number] 2.16. 840.1.329877.3.579.2. 1947 Unknown [id number] 2.16. 840.1.990972.3.579.2.196 1947 Unknown [id number] 2.16. 840.1.260221.3.579.2.196 1947 Unknown [id number] 2.16. 840.1.893567.3.579.2.196 1947 Unknown [id number] 2.16. 840.1.574845.3.579.2.196 1947 Unknown [id number] 2.16. 840.1.915741.3.579.2.196 1947 Unknown [id number] 2.16. 840.1.119953.3.579.2.196 Social History Date Type Detail Facility Tobacco smoking stat [facility] Unknown if ever smoked [facility] Sex Assigned At Not on file [facility] Start: 02-03-2021 End: 12-25-2023 Tobacco smoking status Ex-smoker (finding) [facility] Sex Assigned At Female [facility] Tobacco smoking status Never [facility] Functional Status Date Assessment Result Facility 12-25-2023 Functional Status N/A [facility] 12-03-2023 Functional Status N/A [facility] 09-26-2023 Functional Status N/A [facility] 08-28-2023 Functional Status N/A [facility] 06-05-2023 Functional Status N/A [facility] 04-12-2023 Functional Status N/A [facility] 04-12-2023 Functional Status [facility] 06-21-2022 Functional Status N/A [facility] Clinical Notes 01-12-2013 to 12-25-2023 Note Date [...] to have the catheter removed. Medicines Take qyhx-ksd-ybezvoz and prescription medicines only as told by [...] provider. Document Revised: 12/16/2020 Document Reviewed: 12/03/2020 [employer] Patient Education 2022 L2C. Follow Up Care 12/03/2023 14:36:32 With:BRENDA MARIN PA-C, URL Address: [address] [place] [phone] When: Unknown [facility] 12-25-2023 Note Patient Education Urology Injection Treatments [...] have the catheter removed. Medicines ? Take jfyh-qxf-ilurdaa and prescription medicines only as told by [...] provider. Document Revised: 12/16/2020 Document Reviewed: 12/03/2020 [employer] Patient Education ? 2022 L2C. [facility] 12-03-2023 Hospital Discharg e instructions Patient Education [...] Up Care 10/01/2023 15:36:12 With:BRENDA MARIN Address: [address] [facility] [place] [address] Business (1) When: Unknown Comments:Call for followup appointment with Georgette Marin PA-C within the next three weeks or so. Push fluids to keep the urine clear. Expect the Botox to start working within the next 2-3 weeks. Have a great day! [facility] 12-03-2023 Note Patient Education Cystoscopy [...] you have a fever over 100 degrees. [facility] 09-26-2023 Hospital Discharg e instructions Patient Education [...] including vitamins, herbs, eye drops, creams, and mqki-fmq-zwexmza medicines. Any problems you or family members [...] provider tells you to take them. Taking oziy-jri-zbwyoiu medicines, vitamins, herbs, and supplements. General instructions [...] Follow these instructions at home: Medicines Take ipkz-exo-tmkxegy and prescription medicines only as told by [...] provider. Document Revised: 11/04/2021 Document Reviewed: 11/04/2021 [employer] Patient Education 2022 L2C. Follow Up Care 08/30/2023 10:04:37 With:BRENDA MARIN PA-C, URL Address: [address] [place] [address] [phone] When: Unknown Comments:flaquita dietz MD [facility] 08-28-2023 Hospital Discharg e instructions Patient Education [...] your health care provider. General instructions Take twns-mkj-ttnvlpd and prescription medicines only as told by [...] provider. Document Revised: 01/17/2021 Document Reviewed: 01/17/2021 [employer] Patient Education 2022 L2C. Follow Up Care 07/23/2023 14:35:57 With:BRENDA MARIN PA-C, URL Address: [address] [place] [address]. [place] [address] Business (1) When:6 weeks [facility] 07-23-2023 Hospital Discharg e instructions Patient Education [...] Up Care 06/11/2023 13:39:28 With:BRENDA MARIN Address: [address] [facility] [place] [address] Business (1) When: Unknown Comments:Call for followup appointment with Georgette Marin PA-c within the next 2 months or so to monitor you. Please finish your antibiotics and have a great day. [facility] 07-23-2023 Note [phone] [id number] [facility] 07-23-2023 Note Cystoscopy with Uret hral Dilation [...] you have a fever over 100 degrees [facility] 06-20-2023 Evaluation note Encounter Date Diagnosis Assessment Notes Jun, Essential (primary) hypertension (ICD-10 - I10) [facility] 01-23-2024 Hospital Discharge instructions Patient Education [...] reconstructed. Follow these instructions at home: Take mxal-sdy-fryjpnq and prescription medicines only as told by [...] provider. Document Revised: 03/07/2022 Document Reviewed: 03/07/2022 [employer] Patient Education 2022 [employer] Follow Up Care 06/21/2022 15:14:52 With:CEZAR BERNAL, Cayden Hollins, URL Address: [address] [place] [address]- When: Unknown [facility] 01-23-2024 Evaluation + Plan note Diagnostic Tests Pending * Urine Culture 06/05/23 [facility]12-18-2023 Evaluation note* Encounter Date Diagnosis [...] symptoms. Any developing patterns. Stay well hydrated. [facility] Other [id number] NoteChief Complaint pt [facility] after being found outside by a neighbor without a shirt on. pt is a/o to self and place, not time. FSBS upon arrival 88. Pt was recently treated for UTI @[facility]. pt. shayla fall, was found sitting down. History of Present Illness 78-year-old female with PMH reformed smoker, HTN, anxiety, depression, peripheral neuropathy, GERD, OAB, obesity. -Patient presented to the ED secondary to confusion. -Per ED physician patient was recently in [facility] and treated for a UTI on [...] Lymph Auto: 9.7 % Low (04/12/23 12:53:00) [place] Auto: 7.8 % (04/12/23 12:53:00) Eos Auto: 0.1 % (04/12/23 12:53:00) Basophil Auto: 0.4 % (04/12/23 12:53:00) Neutro Absolute: 12.4 E9/L High (04/12/23 12:53:00) Lymph Absolute: 1.5 E9/L (04/12/23 12:53:00) [place] Absolute: 1.2 E9/L High (04/12/23 12:53:00) Eos [...] 88 mg/dL (04/12/23 12:23:00) POC Device SN: [id number] (04/12/23 12:23:00) POC User ID: (more content not included)...[facility]Result Comment: Electronically Signed By: Radha TAYLOR\.br\Date and Time Signed: 04/12/23 16:29 EST\.br\Electronically Co-Signed By: Radha TAYLOR\.br\Date and Time Co-Signed: 04/12/23 16:37 EST\.br\Electronically Co-Signed By: Radha TAYLOR\.br\Date and Time Co-Signed: 04/12/23 16:58 EST\.br\Electronically Co-Signed By: Tessie BERNAL, Efrain\.br\Date and Time Co-Signed: 04/13/23 16:43 [id number] NoteAdmission and Discharge Information Admitting Physician - [...] willbe reviewed and discussed with PCP or armed custom protection officer MD once the hospital transfer car operator is able to reach him/her. I [...] made to ensure accuracy, however, inadvertently computerized signaling project engineer mistakes may be present. Significant Findings CT [...] spine, with routine reconst (more content not included)...[facility]:Result Comment: Electronically Signed [...] Ahmad\.br\Date and Time Co- Signed: 04/13/23 16:37 [id number] Evaluation + Plan noteExtracted from: Title:Discharge Note [...] cap(s), Oral, Daily With When Contact Information [facility] Additional Instructions: Call for followup appointment for anxiety/depression care. 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 Future Appointments Appointment Date:06/05/2023 01:00:00 PM Scheduled Provider:BRENDA MARIN PA-C Location:[facility] Appointment Type:URO Office Visit [facility]12-01-2023 Hospital Discharge instructions Patient Education [...] friend for help if needed. Medicines Take haiq-nrp-yyccxox and prescription medicines only as told by [...] consider day care, extended-care programs, or a senior care facility. The person's health care provider may [...] provider. Document Revised: 08/24/2020 Document Reviewed: 08/24/2020 [employer] Patient Education 2022 L2C. Follow Up Care 04/12/2023 12:15:50 With:Johnnie BERNAL, ALPHONSE Choi Address: [place] [phone] When:1 to 2 weeks Comments:This office is closed on Fridays. Please call the office on Sunday April 16, 2023 for a follow upappiontment. Thank you. With:JEREMIAH REED Address: [address] [place] [address] [facility] (1) When:2 to 4 days Comments:Call for followup appointment With:[facility] Address:Unknown When: Unknown Comments:Call for followup appointment for anxiety/depression care. [facility]12-01-2023 NoteChief Complaint AMS Reason for [...] deep vein thrombosis (DVT) prophylaxis (Z79.899: Other alf (current) drug therapy) Depression, unspecified (F32.A: Depression, [...] 2 tab(s), Oral, q6hr, PRN Afrin 0.05% [place], 2 s (more content not included)...[facility] Comment on above:Result Comment: Electronically Signed [...] hand. Will likely benefit from home health PT.[facility]11-17-2023 Evaluation note* Encounter Date Diagnosis Assessment Notes Treatment Notes Treatment Clinical Notes Mar, Colon cancer screening (ICD-10 - Z12.11) [facility] 11-16-2023 Evaluation note* Encounter Date Diagnosis Assessment Notes Treatment Notes Treatment Clinical Notes Mar, Generalized weakness (ICD-10 - R53.1) Followup as scheduled w ortho and PT Mar, COPD, moderate (ICD-10 - J44.9) continue present medication reviewed ER report from observation status [facility] 03-30-2023 NoteCONSULTATION CONSULTATION DATE: 08/10/2022 TO: [...] weeks' time or sooner if needed. [id number] NoteCONSULTATION PROCEDURE DATE: 08/10/2022 PROCEDURE: Right suprascapular [...] reduction in her pain symptoms post procedurally.[id number] Hospital Discharge instructions Patient Education 06/21/2022 14:35:24 [...] fried and sweet foods. General instructions Take rryy-acr-svqaght and prescription medicines only as told by [...] 02/24/2010 Document Revised: 08/21/2019 Document Reviewed: 05/16/2018 [employer] Patient Education 2020 L2C. Follow Up Care 05/19/2021 14:10:29 With:BRENDA MARIN PA-C, URL Address: [address] [place] [address] [address] [facility] [place] [address] When: Unknown [facility] 12-29-2022 NoteCONSULTATION CONSULTATION DATE: 05/11/2022 HISTORY OF [...] the diclofenac. 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 [facility] [id number] History general Narrative - Reported* Type Description Date Medical History Chronic back pain Medical History HTN Medical History anxiety Medical History DJD Medical History osteoporosis Surgical History Lumbar laminectomy and fusion Surgical History Hysterectomy (spared L ovary) Surgical History Landaverde's neuroma Hospitalization History For surgery as above Hospitalization History [facility] 03/2023 [employer] Other Evaluation + Plan note Future Appointments Appointment Date:06/26/2023 02:30:00 PM Scheduled Provider:BRENDA MARIN PA-C Location:[facility] Appointment Type:URO Office Visit [facility] evaluation + Plan note Future Appointments Appointment Date:08/28/2023 03:00:00 PM Scheduled Provider:BRENDA MARIN PA-C Location:[facility]ment [facility] Future Appointments Appointment Date:11/27/2023 11:00:00 AM Scheduled Provider: Location:[facility] Appointment Type:Urology CALL PAT FT Appointment Date:12/03/2023 02:00:00 PM Scheduled Provider: Location:[facility] Appointment Type:Urology FT [facility] evaluation + Plan note Future Appointments Appointment Date:12/25/2023 12:40:00 PM Scheduled Provider:BRENDA MARIN PA-C Location:[facility] Appointment Type:URO Office Visit [facility] noteNo Medic [email or web address] Other Hospital course Narrative No data available for this section [facility] Hospital Discharge instructions No data available for this section [facility] No data available for this section [facility] Summary Purpose Family History No [...] Personnel Name: JEREMIAH REED MD Address: Address: [address] [place] [address] Personnel Name: JEREMIAH REED MD Address: Address: [address] [place] [address] Personnel Name: JEREMIAH REED MD Address: Address: [address] [place] [address] Personnel Name: JEREMIAH REED MD Address: Address: [address] [place] [address] Personnel Name: JEREMIAH REED MD Address: Address: [address] [place] [address] Personnel Name: JEREMIAH REED MD Address: Address: [address] [place] [address] Personnel Name: JEREMIAH REED MD Address: Address: [address] [place] [address] Personnel Name: JEREMIAH REED MD Address: Address: [address] [place] [address] Personnel Name: JEREMIAH REED MD Address: Address: [address] [place] [address] Personnel Name: JEREMIAH REED MD Address: Address: [address] [place] [address] Personnel Name: JEREMIAH REED MD Address: Address: [address] [place] [address] INFORMATION SOURCE (unrecogn ized section and content) DATE CREATED AUTHOR 09/08/2022 [facility] DATE CREATED AUTHOR AUTHOR'S ORGANIZ ATION [facility]/26/2024 [facility] DATE CREATED AUTHOR AUTHOR'S ORGANIZ ATION 01/30/2024 [facility] DATE CREATED AUTHOR AUTHOR'S ORGANIZ ATION 02/11/2024 [facility] FOR RECORDS PERTAINING TO PATIENTS WHO [...] BE BASED ON THE PRIMARY CLINICAL RECORDS. [employer] provides no warranty or guarantee of the accuracy or completeness of information in this document.
--- NOTE | 2024-02-27 10:30 | ED_ITS ---
HPI - Eye Problem General Chief complaint: Eye Problems Stated complaint: EYE PROBLEMS Time Seen by Provider: 02/27/24 09:59 Source: patient Mode of arrival: walk-in History of Present Illness HPI Narrative: Patient presents to ED complaining of left eye pain. She said for the past few days, since Sunday she has had some eye irritation and felt like something is may be in her eye. She then said the pain radiated all the way up into her scalp. Patient has some redness on her forehead and in her scalp. Some tearing and redness of the eye. She denies any visual changes just that it feels irritated and sore. She said has been giving her a headache. No fevers. She does complain of nausea but no vomiting. Patient is at pain management and has Percocet at home which she has been used for pain Related Data Home Medications ?Medication ?Instructions ?Recorded ?Confirmed multivitamin 1 tab PO DAILY 10/26/22 02/04/24 omeprazole 40 mg capsule,delayed 40 mg PO DAILY 10/26/22 02/04/24 release calcium carbonate (Calcium 600) 600 mg PO DAILY 03/21/23 02/04/24 meloxicam 15 mg tablet 15 mg PO DAILY 03/21/23 02/04/24 baclofen 10 mg tablet 5 mg PO TID PRN muscle spasm 07/19/23 02/04/24 acetaminophen 325 mg tablet 650 mg PO Q6H PRN pain 08/30/23 02/04/24 amlodipine 2.5 mg tablet 2.5 mg PO DAILY 08/30/23 02/04/24 aspirin 81 mg tablet,delayed 81 mg PO DAILY 08/30/23 02/04/24 release glucosamine sulfate 500 mg tablet 500 mg PO BID 08/30/23 02/04/24 (Glucosamine) oxycodone-acetaminophen 5 mg-325 1 tab PO TID PRN pain 08/30/23 02/04/24 mg tablet (Percocet) albuterol sulfate 90 mcg/actuation 2 puff inhalation Q4H PRN 12/28/23 02/04/24 aerosol inhaler shortness of breath or wheezing buspirone 10 mg tablet 10 mg PO BID 12/28/23 02/04/24 Previous Rx's ?Medication ?Instructions ?Recorded gabapentin 300 mg capsule 300 mg PO TID #270 caps 06/07/23 nortriptyline 25 mg capsule 25 mg PO DAILY #90 caps 10/17/23 baclofen 10 mg tablet 10 mg PO BID #60 tabs 02/25/24 gabapentin 300 mg capsule 300 mg PO TID #90 caps 02/25/24 oxycodone-acetaminophen 5 mg-325 1 tab PO TID PRN pain #90 tabs 02/25/24 mg tablet (Percocet) methylprednisolone 4 mg tablets in 4 mg PO DAILY shingles #21 ea 02/27/24 a dose pack (Medrol (Wilfred)) tobramycin 0.3 %-dexamethasone 1 drp ophthalmic (eye) Q6H 02/27/24 0.05 % eye drops,suspension shingles 7 days #5 mL (Tobradex ST) valacyclovir 1 gram tablet 1,000 mg PO TID 5 days #15 tabs 02/27/24 (Valtrex) Allergies Allergy/AdvReac Type Severity Reaction Status Date / Time No Known Drug Allergies Allergy Verified 02/04/24 10:16 Review of Systems ROS Status of ROS 10 or more systems reviewed and unremark able except as noted in history and below [facility] Medical History COPD (chronic obstructive pulmonary disease) ?J44.9 - Chronic obstructive pulmonary disease, unspecified (ICD-10) GERD (gastroesophageal reflux disease) ?K21.9 - Gastro-esophageal reflux disease without esophagitis (ICD-10) Chronic pain ?G89.29 - Other chronic pain (ICD-10) Anxiety ?F41.9 - Anxiety disorder, unspecified (ICD-10) HTN (hypertension) ?I10 - Essential (primary) hypertension (ICD-10) Chronic prescription opiate use ?Z79.891 - [facility] (current) use of opiate analgesic (ICD-10) Shoulder arthritis ?M19.019 - Primary osteoarthritis, unspecified shoulder (ICD-10) Cervical spondylosis ?M47.812 - Spondylosis without myelopathy or radiculopathy, cervical region (ICD-10) Surgical History History of lumpectomy of left breast ?Z98.890 - Other specified postprocedural states (ICD-10) History of back surgery ?Z98.890 - Other specified postprocedural states (ICD-10) History of hysterectomy ?Z90.710 - Acquired absence of both cervix and uterus (ICD-10) Family History Mother Family history of cancer Father Family history of stroke Grandfather Family history of stroke Social History Within the past year, how often did you have a drink containing alcohol: never Score interpretation: A score less than 3 is consistent with normal alcohol consumption. Smoking status: Former smoker Non-prescribed substance use: denies use Previous occupational history: retired Highest level of school completed/degree received: high school graduate Are you now , , , , never or living with a partner: Little interest or pleasure in doing things: not at all Feeling down, depressed, or hopeless: not at all Feel stressed/tense/nervous/anxious/difficulty sleeping: not at all Do you think of yourself as: straight/heterosexual Gender Identity: female Exam Narrative Exam Narrative: General: alert, no acute distress Cardiovascular: regular rate and rhythm, normal peripheral perfusion. Respiratory: Lungs CTA, respirations non labored. Extremities: no deformity, no trauma. Neurological: oriented x 4, LOC appropriate for age. Pupils equally round and reactive to light, extraocular movements intact. Right eye normal. Left eye is erythematous, injected. Tearful. She does have a vesicular rash around the eye that extends up into the scalp. No lesion noted on the nose. Consistent with shingles rash. Constitutional Vital Signs, click to edit/add: Last Vital Signs Temp 97.8 F 02/27/24 10:02 Pulse 117 H 02/27/24 10:02 Resp 18 02/27/24 10:02 BP 145/96 H 02/27/24 10:02 Pulse Ox 97 02/27/24 10:02 O2 Del Method Room Air 02/27/24 10:02 Course Vital Signs Vital signs: Vital Signs Temperature 97.8 F 02/27/24 10:02 Pulse Rate 117 H 02/27/24 10:02 Respiratory Rate 18 02/27/24 10:02 Blood Pressure 145/96 H 02/27/24 10:02 Pulse Oximetry 97 02/27/24 10:02 Oxygen Delivery Method Room Air 02/27/24 10:02 Temperature 97.8 F 02/27/24 10:02 Pulse Rate 117 H 02/27/24 10:02 Respiratory Rate 18 02/27/24 10:02 Blood Pressure 145/96 H 02/27/24 10:02 Pulse Oximetry 97 02/27/24 10:02 Oxygen Delivery Method Room Air 02/27/24 10:02 MDM - Eye Problem MDM Narrative Medical decision making narrative: Patient most likely has shingles which may be affecting the eye given the presentation of the eye. Patient will be placed on TobraDex, Valtrex, and oral steroids. She was instructed to call an weatherization crew leader today to schedule a follow-up appointment as soon as possible. Multiple numbers were given to her since she said she used to go to [facility] but does not go there anymore. Patient is alert and comfortable with care plan for home. Return to ED if worsening symptoms. Differential Diagnosis Differential diagnosis: Likely corneal abrasion, conjunctivitis, acute iritis, periorbital cellulitis, corneal ulcer and other (Shingles) Discharge Plan Discharge Chief Complaint: Eye Problems Clinical Impression: Shingles Patient Disposition: Home, Self-Care Time of Disposition Decision: 10:09 Condition: Good Mode of Transportation: Private Vehicle Prescriptions / Home Meds: New Tobradex ST 0.3-0.05 % drops,suspension 1 drp ophthalmic (eye) Q6H 7 Days Qty: 5 0RF methylprednisolone [Medrol (Wilfred)] 4 mg tablets,dose pack 4 mg PO DAILY Qty: 21 0RF Rx Instructions: disp one pack taper as directed valacyclovir [Valtrex] 1 gram tablet 1,000 mg PO TID 5 Days Qty: 15 0RF No Action baclofen 10 mg tablet 5 mg PO TID PRN (Reason: muscle spasm) amlodipine 2.5 mg tablet 2.5 mg PO DAILY glucosamine sulfate [Glucosamine] 500 mg tablet 500 mg PO BID Rx Instructions: administer with meals acetaminophen 325 mg tablet 650 mg PO Q6H PRN (Reason: pain) aspirin 81 mg tablet,delayed release (DR/EC) 81 mg PO DAILY oxycodone-acetaminophen [Percocet] 5-325 mg tablet 1 tab PO TID PRN (Reason: pain) omeprazole 40 mg capsule,delayed release(DR/EC) 40 mg PO DAILY multivitamin Tablet 1 tab PO DAILY gabapentin 300 mg capsule 300 mg PO TID Qty: 270 0RF meloxicam 15 mg tablet 15 mg PO DAILY calcium carbonate [Calcium 600] 600 mg calcium (1,500 mg) tablet 600 mg PO DAILY nortriptyline 25 mg capsule 25 mg PO DAILY Qty: 90 0RF albuterol sulfate 90 mcg/actuation HFA aerosol inhaler 2 puff INHALATION Q4H PRN (Reason: shortness of breath or wheezing) buspirone 10 mg tablet 10 mg PO BID oxycodone-acetaminophen [Percocet] 5-325 mg tablet 1 tab PO TID PRN (Reason: pain) Qty: 90 0RF gabapentin 300 mg capsule 300 mg PO TID Qty: 90 0RF baclofen 10 mg tablet 10 mg PO BID Qty: 60 2RF Print Language: Khmer Instructions: Stalin (ED) Referrals: PHILIPP FLOWERS [Physician] - 1 week Tierra Newell MD [Primary Care Provider] - 1 week ISAC RINCON [Physician] - 1 week
== END 2024-02-27 10:20 | disposition home or self-care (01) ==
PROVIDERS: Emergency Provider Emergency Medicine; PCP Family Medicine
DX: B02.9 Zoster without complications (principal); Z87.891 Personal history of nicotine dependence
CPT/HCPCS: 99283

== ENCOUNTER 2024-03-01 16:43 | Emergency (ER) | payer MEDICARE, OTHER, SELFPAY ==
[2024-03-01] VITALS (14 sets, daily range): BP systolic 110–154; BP diastolic 74–102; PULSE 90–114; TEMP 36.5; O2SAT 81–99; BMI 36.6
--- OUTSIDE RECORDS SUMMARY | 2024-03-01 16:57 | XMS_ITS | CCD ---
Author Organization [facility] Care Team Providers Care Solution Designer Name Role Phone Unavailable Primary Care Provider JEREMIAH Arnold Primary Care Physician BERNT MALDONADO Consulting Unavailable LAKSHMIPATHY ., BARBARA Admitting [...] DAMICO Admitting Unavailable MoussEfrain saez Attending Unavailable Averill ParkEhsan cortez Consulting Unavailable Efrain Kurtz Admitting Unavailable MD Ehsan Blair Consulting Unavailable A[place] Park, Ehsan Consulting Unavailable [place], Ehsan Consulting Unavailable [place], Ehsan Consulting Unavailable [place], Ehsan Consulting Unavailable [place], Ehsan Consulting Unavailable [place], Ehsan Consulting Unavailable [place], Ehsan Consulting Unavailable BRENDA MARIN Attending Unavailable [...] physicia Propensity to adverse reactions 9 Comment:Done Karaz Other (7 sources) Allergies Reconciled Propensity to adverse reactions Unknown Karaz Other Medications Current Medications Medication Drug Class(es) [...] Active oral daily for 30 *Reorder from Nok Nok LabsDFMSim for eRx and Interaction Alerts* Apr, Active Start: 02-11-2019 take 2 tablets by mo [facility] once daily amLODIPine 2.5 mg [...] Entry Oral for 0 *Pick strength-form from iCrimefighter for eRX* Mar, Active Start: 03-31-2021 take [...] afterwards, # 2 tab(s), Refills(s) 0, [id number] 165, cm, 06/05/23 12:57:00 [...] for 0 duration 5 years *Reorder from iCrimefighter for eRx and Interaction Alerts* Nov, Active [...] day(s), # 30 tab(s), Refills(s) 11, Pharmacy: [id number], 165, cm, 06/21/22 14:53:00 EST, Height/Length Dosing, 87, kg, 06/21/22 14:53:00 EST, Weight Dosing Start Date: 06/21/22 Stop Date: 06/16/23 Status: Ordered Tudorza Pressair 400mcg/actuat (7 sources) Start: 04-12-2022 take 1 puff(s) by inhalation twice daily Tudorza Pressair 400mcg/actuat Tudorza Pressair 400mcg/actuat, 1 (one) Puff BID # 1, 04/12/2022, Ref. x12. Active inhalation BID *Pick strength-form from Nok Nok Labsspan for eRX* Mar, Active Start: 04-12-2022 take 1 puff(s) by in halation twice daily Tudorza Pressair 400mcg/actuat Tudorza Pressair 400mcg/actuat, 1 (one) Puff BID # 1, 04/12/2022, Ref. x12. Active inhalation BID for 30 *Pick strength-form from Nok Nok Labsspan for eRX* 30 Mar, 2022 Active vibegron [...] use of drug therapy; Translations: [Other extermination inspector (current) drug therapy] Onset: 3 Episodic Other [...] Episodic Other aftercare (1 source) Other extermination inspector (current) drug therapy; Translations: [OTH INDUSTRIAL/ORGANIZATIONAL PSYCHOLOGIST CURRENT DRUG THERAPY] Onset: 01-09-2022 Episodic Other [...] Facility Patient Letter FTon 2023 Patient Letter [facility] Patient Letter [facility] January 28, 2024 AARON LEWSI [address] [place] [address] : 1945 Dear Aaron Lewis, We have been trying to reach you with no success. It is important that you return our call upon receiving this letter. Also, at the time of your call, please provide us with your current information. Thank you for your prompt attention to this matter. Sincerely, [facility] [address] [place] [address] [facility] Ambulatory Visit Summaryon 0 12-25-2023 Ambulatory [...] PA-C, URL When: Where: [address] [place] [address] [phone] Medications What How Much When Instructions Unchanged [...] tubing an (more content not included)... Normal [facility] Urology Office/Clinic Noteon 12-25-2023 Urology Office/Clinic [...] Contact Information MIAH ROE, BRENDA Poole, URL [address] [place] [address] [phone] Additional Instructions: nurse visit in 1 wk [...] than 30 (more content not included)... Normal [facility] Comment on above: Result Comment: Elec tronically Signed By: BRENDA MARIN PA-C\.br\Date and Time Signed: 12/25/23 13:09 EDT\.br\Electronically Co-Signed By: Abby Colon.br\Date and Time Co-Signed: 12/25/23 13:07 EDT Inpatient Patient Summaryon 12-03-2023 Inpatient Patient Summary Inpatient Patient Summary [address] [address] Clinical Summary Person Information Name: AARON LEWIS Age: 78 Years : 1945 Sex: Female PCP: JEREMIAH REED MD Marital Status: Phone: [phone] Race: White Ethnicity: Non- or Language: Sri Lankan Visit Id: Visit Reason: URINARY INCONTINENCE Speciality: Acuity: Enc Type: Outpatient Med Service: Surgery Arrival: 12/03/2023 13:41:56 Discharge: Dispo Type: Address: [address] [place] [address] [address] [id number] Provider Notes: Diagnosis: Problems Active Recurrent UTI [...] Follow up: With: Address: When: BRENDA MARIN [address] [facility] [place] [phone] [facility] (1) Comments: Call for followup appointment with Georgette Marin PA-C within the next three weeks or so. Push fluids to keep the urine clear. Expect the Botox to start working within the next 2-3 weeks. Have a great day! Patient Education Information: EU - Cystoscopy with Botox Injection Discharge Instructions (Custom) [facility] Main OR Intraoperative Recor don 12-03-2023 Main OR Intraoperative Record Main OR Intraoperative Record IntraOp Document Type FTURO Summary Primary Physician: Cayden ROBB MD Finalized Date/Time: 12/03/23 14:30:52 Pt. Name: АННАAARON/Sex: 1945 Female Med Rec #: [id number] Physician: Cayden ROBB MD Financial #: [id number] Pt. Type: O Room/Bed: / Admit/Disch: 12/03/23 13:41:56 - Institution: Case Times FTURO Entry 1 Patient Times In Room 12/03/23 14:15:00 Out Room 12/03/23 14:30:00 Procedure Times Start 12/03/23 14:21:00 Stop 12/03/23 14:23:00 Anesthesia Times Last Modified By: Neva Palacio 12/03/23 14:30:41 General Comments: BOTOX 100 UNITS EXP: LOT: [id number].GIORGIO MELENDEZ. Case Attendance FTURO Entry 1 Entry 2 Entry 3 Case Attendee Cayden ROBB MD, Kelsie E McClain LOAN ASSISTANTKenisha Role Performed Surgeon - Primary Health Care Marketing Specialist - Primary Scrub - Primary Time In [...] Palacio 12/03/23 14:30 Neva Palacio 12/03/23 14:30 [facility] Main OR Preoperative Recordo n 12-03-2023 Main OR Preoperative Record Main OR Preoperative Record Holding Area Document Type FTURO Summary Primary Physician: Cayden ROBB MD Finalized Date/Time: 12/03/23 14:21:15 Pt. Name: AARON LEWIS/Sex: 1945 Female Med Rec #: [id number] Physician: Cayden ROBB MD Financial #: [id number] Pt. Type: O Room/Bed: / Admit/Disch: 12/03/23 [...] Complaints of Pain: No Skin Integrity Intact, [place], Warm, & Dry Vitals - EU Blood [...] 12/03/23 14:03 Neva Palacio 12/03/23 14:21 Normal [facility] Operative Reporton Operative Report Operative Report Patient: AARON LEWIS Age: 78 years Sex: Female : 1945 Associated Diagnoses: None Author: Cayden ROBB MD Procedure Operative Information Details: Date/ Time: 12/03/2023 14:28:00. Pre-Op Dx: Overactive bladder (IVL70-FG N32.81, Working, Medical). Post-Op Dx: Same. Anesthesia [...] about 3 weeks. Finish abx. . Normal [facility] Comment on above: Result Comment: Elec tronically Signed By: Cayden ROBB MD\.br\Date and Time Signed: 12/03/23 14:29 EDT Outpatient Surgery Discharge Instructionon 12-03-2023 Outpatient Surgery Discharge Instruction Outpatient Surgery Discharge Instruction [address] [address] Patient Discharge Instructions PERSON INFORMATION Name: AARON [...] Follow up: With: Address: When: BRENDA MARIN [address] [place] [phone] [facility] (1) Comments: Call for followup appointment [...] You may receive a survey from [employer]liudmila asking you to rate your care experience. Your feedback is important and will help us understand what we do well and how we can improve the quality of care we provide to you, your loved ones and our community. It?s an honor to serve you. Thank you for choosing [facility] Normal [facility] Ambulatory Visit Summaryon 0 09-26-2023 Ambulatory [...] w/ Where: [address] [place] [address] [phone] Medications What How Much When Instructions Unchanged [...] including vitamins, herbs, eye drops, creams, and zxnu-ftd-tjqkqlc medicines. ? Any problems you or family [...] are or (more content not included)... Normal [facility] Patient Educationon 09-26-19 Patient Education Urology [...] including vitamins, herbs, eye drops, creams, and vosm-rnj-hqqezfl medicines. ? Any problems you or family [...] tells you to take them. ? Taking afjz-wfo-rkjzksm medicines, vitamins, herbs, and supplements. General instructions [...] these instructions at home: Medicines ? Take tewn-gru-itmunhd and prescription medicines only as told by [...] health ca (more content not included)... Normal [facility] Urology Office/Clinic Noteon 09-26-2023 Urology Office/Clinic [...] Contact Information MIAH ROE, BRENDA Poole, URL [address] [place] [address] [phone] Additional Instructions: flaquita Girard w/ Patient Education [...] tobacco c (more content not included)... Normal [facility] Comment on above: Result Comment: Elec [...] Pickup at [facility]/pharmacy #[id number] New vibegron (Gemtesa 75 mg oral tablet) [...] [id number] [address], [place] [phone] Allergies No Known Allergies Problems Ongoing - [...] you for choosing us for your care. [facility] Patient Educationon 08-28-19 Patient Education Obstetrics [...] health care provider. General instructions ? Take kfdo-log-gqxwfub and prescription medicines only as told by [...] monitor yo (more content not included)... Normal [facility] Urology Office/Clinic Noteon 08-28-2023 Urology Office/Clinic [...] day(s), # 30 tab(s), Refills(s) 11, [id number], 165, cm, 08/28/23 15:03:00 EDT, Height/Length Dosing, 90, kg, 08/28/23 15:03:00 EDT, Weight Dosing 48334 Measure Post Void residual urine and/or bladder capacity by US- non-imaging Body Mass Index (BMI) documented 3008F Complex E&M Add on G2211 Current tobacco non-user 1036F Depression Screening Negative 3352F E&M of Est. Patient Moderate 30-39 Min 15166 Influenza immunization status assessed 1030F Medication list [...] Urnls Dip Stick Auto w/o Microscopy POC 55558 2. Urethral stricture (N35.919: Unspecified urethral stricture, [...] day(s), # 30 tab(s), Refills(s) 11, [id number], 165, cm, 08/28/23 15:03:00 EDT, Height/Length Dosing, 90, kg, 08/28/23 15:03:00 EDT, Weight Dosing vibegron, 75 mg = 1 tab(s), Oral, Daily, X 30 day(s), # 30 tab(s), Refills(s) 11, Pharmacy: [facility]/pharmacy #[id number], 165, cm, 08/28/23 15:03:00 EDT, Height/Length Dosing, 90, kg, 08/28/23 15:03:00 EDT, Weight Dosing 00677 Measure Post Void residual urine and/or bladder capacity by US- non-imaging Body Mass Index (BMI) documented 3008F Complex E&M Add on G2211 Current tobacco non-user 1036F Depression Screening Negative 3352F E&M of Est. Patient Moderate 30-39 Min 27542 Influenza immunization status assessed 1030F Medication list [...] Coli, 50k Proteus (more content not included)... [facility] Comment on above: Result Comment: Elec tronically Signed By: BRENDA MARIN PA-C\.br\Date and Time Signed: 08/28/23 15:38 EDT Physician Orderon 08-02-2023 Physician Order [id number] #1.00TIFF [facility] Consent for Procedure/Surger yon 07-23-2023 Consent for Procedure/Surgery [id number] 4#1.00TIFF [facility] Consent for Treatmenton 07-12 Consent for Treatment [id number] 1#1.00TIFF [facility] Inpatient Patient Summaryon 07-23-2023 Inpatient Patient Summary [address], [place] [address] Clinical Summary Person Information Name: AARON LEWIS Age: 78 Years : 1945 Sex: Female PCP: JEREMIAH REED MD Marital Status: Phone: [phone] Race: White Ethnicity: Non- or Language: Sri Lankan Visit Id: Visit Reason: URETHER STRICTURE AND RECURRENT UTI Speciality: Acuity: Enc Type: Outpatient Med Service: Surgery Arrival: 07/23/2023 13:44:06 Discharge: Dispo Type: Address: [address] [place] [address] [address] [place] [phone] Provider Notes: Diagnosis: Problems Active Recurrent UTI [...] Follow up: With: Address: When: BRENDA MARIN [address] [facility] [place] [phone] Business (1) Comments: Call for followup appointment with Georgette Marin PA-c within the next 2 months or so to monitor you. Please finish your antibiotics and have a great day. Patient Education Information: EU - Cystoscopy with Urethral Dilation Discharge Instructions (Custom) [facility] IntraOperative Documentson 0 07-23-2023 IntraOperative Documents [id number] 5#1.00TIFF [facility] Main OR Intraoperative Recor don 07-23-2023 Main OR Intraoperative Record IntraOp Document Type FTURO Summary Primary Physician: Cayden ROBB MD Finalized Date/Time: 07/23/23 14:33:02 Pt. Name: AARON LEWIS/Sex: 1945 Female Med Rec #: [id number] Physician: Cayden ROBB MD Financial #: [id number] Pt. Type: O Room/Bed: / Admit/Disch: 07/23/23 [...] Son Tellez Role Performed Surgeon - Primary Health Care Marketing Specialist - Primary Scrub - Primary Time In [...] By: Crissy Borja RN 07/23/23 14:33 Normal [facility] Main OR Preoperative Recordo n 07-23-2023 Main OR Preoperative Record Holding Area Document Type FTURO Summary Primary Physician: Cayden ROBB MD Finalized Date/Time: 07/23/23 14:14:06 Pt. Name: АННА AARONRANJITH Odom/Sex: 1945 Female Med Rec #: [id number] Physician: Cayden ROBB MD Financial #: [id number] Pt. Type: O Room/Bed: / Admit/Disch: 07/23/23 [...] JOSE Markham RN, Ruthann 07/23/23 14:14 Normal [facility] Operative Reporton Operative Report Patient: AARON LEWIS Age: 78 years Sex: Female : 1945 Associated Diagnoses: None Author: Cayden ROBB MD Procedure Operative Information Details: Date/ Time: 07/23/2023 14:29:00. Pre-Op Dx: Recurrent UTI (UGX53-IN N39.0, Working, Medical), Unspecified urethral stricture, female (GSR11-XZ N35.92, Working, Medical), Overactive bladder (GJN37-ZR N32.81, Working, Medical). Post-Op Dx: Same. Anesthesia [...] urine. The Urethra was dilated to: 30 Spanish w/ sounds. Devices Implanted: None. Removal: Cystoscope is removed, The patient tolerated it well. Postoperative Information Discharge: Patient is discharged home with antibiotic coverage, Follow up arranged, F/U with Georgette Marin PA-C within the next 2-3 months. Monitor the urinary flow pattern. The goal is also to decrease UTI frequency. . Normal [facility] Comment on above: Result Comment: Elec tronically Signed By: Cayden ROBB MD\.br\Date and Time Signed: 07/23/23 14:30 EDT Outpatient Surgery Discharge Instructionon 07-23-2023 Outpatient Surgery Discharge Instruction [address] [address] Patient Discharge Instructions PERSON INFORMATION Name: AARON [...] Follow up: With: Address: When: BRENDA MARIN [address] [place] [phone] [facility] (1) Comments: Call for followup appointment [...] Date You may receive a survey from [email or web address] asking you to rate your care experience. Your feedback is important and will help us understand what we do well and how we can improve the quality of care we provide to you, your loved ones and our community. It?s an honor to serve you. Thank you for choosing [facility] Normal [facility] C Urineon 07-11-2023 Bacteria identified Cx [...] Locations R1: This test was performed at: [facility], [address] [place] [address], [address] , , Normal [facility] Comment on above: Performed By: #### 2 [id number] ####[facility] [address] [place] [address] Ambulatory Visit Summaryon 0 07-09-2023 Ambulatory Visit [...] Follow-Up Appointments Sunday 9:00 AM EST Where: [facility] Sunday 2:30 PM EDT Where: [facility] Medications What How Much [...] for choosing us for your care. Normal [facility] C Urineon 06-07-2023 Bacteria identified Cx [...] Locations R1: This test was performed at: [facility], [address] [place] [address], [address] , , [facility] Comment on above: Performed By: #### 2 [id number] #### [facility] Laboratory [address] [place] [address] Lab Reportson 06-06-2023 Lab Reports [id number] 7#1.00TIFF Normal [facility] Screenson 06-06-2023 Screens [id number]# 1.00TIFF Normal [facility] Ambulatory Visit Summaryon 0 06-05-2023 Ambulatory Visit Summary AARON LEWIS :1945 Visit Date:06/05/2023 Ambulatory Visit Instructions Your Diagnosis OAB (overactive bladder) Urethral stricture Recurrent UTI Your Care Team Attending Physician - BRENDA AMRIN PA-C Primary Care Physician - JEREMIAH REED [...] BERNAL, Cayden Hollins, URL When: Where: [address] [place] [address]- Medications What How Much When Instructions [...] Follow these instructions at home: ? Take vxvm-ahs-rfoadep and prescription medicines only as told by [...] provider. Document Revised: 03/07/2022 Document Reviewed: 03/07/2022 [email or web address] Patient Education ? 2022 [employer] 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 Getting up 3-4x/night, every night. Denies current pain/burning and visible blood in urine. States she has had 2 UTI's since April. Was hospitalized back in March @ [facility] due to falling. (No C&S at [facility]) Also at [place]. C&S 03/24/23 *>100k E Coli & 50-60k [...] available) Was hospitalized back in March @ [facility] due to falling. (No C&S at [facility]) Also at [place]. UA today shows trace-intact blood, positive nitrates [...] evening fluids and reducing bladder irritants. Ordered: 00990 Measure Post Void residual urine and/or bladder [...] Urnls Dip Stick Auto w/o Microscopy POC 18439 Follow-up With When Contact Information CEZAR BERNAL, Cayden Hollins, URL [address] [address]- Additional Instructions: Schedule cysto/UD Patient Education Urethral [...] 2 tab (more content not included)... Normal [facility] Comment on above: Result Comment: Elec tronically Signed By: BRENDA MARIN PA-C.br\Date and Time Signed: 06/05/23 17:59 EST\.br\Electronically Co-Signed By: Dori Mantilla.br\Date and Time Co-Signed: 06/05/23 13:35 EST Insurance Correspondence Off iceon 04-19-2023 Insurance Correspondence Office [id number] 8#1.00TIFF Normal [facility] Discharge Instructionson Discharge Instructions [id number] [facility] [id number] 8#1.00TIFF Normal [facility] Outside Recordson 04-14-2023 Outside Records [id number] 3#1.00TIFF Normal [facility] BMPon 04-13-2023 Anion gap [Moles/Vol] 14 mmol/L Normal 6-16 [facility] Comment on above: Performed By: #### 2 [id number], [id number], [id number] #### [facility] Laboratory [address] [place] [address] Calcium [Mass/Vol] 9.1 mg/dL Normal 8.9-11.1 [facility] Comment on above: Performed By: #### 2 320914, [id number], [id number] #### [facility] [address] [place] [address] Chloride [Moles/Vol] 114 mmol/L High 101-111 [facility] Comment on above: Performed By: #### 2 815571, [id number], [id number] #### [facility] [address] [place] [address] CO2 [Moles/Vol] 20 mmol/L Low 21-31 [facility] Comment on above: Performed By: #### 2 993995, [id number], [id number] #### [facility] [address] [place] [address] Creatinine [Mass/Vol] 1.2 mg/dL Normal 0.5-1.3 [facility] Comment on above: Performed By: #### 2 [id number], [id number], [id number] #### [facility] [address] [place] [address] Glucose [Mass/Vol] 96 mg/dL Normal 55-199 [facility] Comment on above: Result Comment: If t his glucose result represents a fasting glucose, interpretation should refer to the following reference range: 55-99 mg/dL Performed By: #### 2 454306, [id number], [id number] #### [facility] [address] [place] [address] Potassium [Moles/Vol] 3.9 mmol/L Normal 3.5-5.3 [facility] Comment on above: Performed By: #### 2 629482, [id number], [id number] #### [facility] [address] [place] [address] Sodium [Moles/Vol] 144 mmol/L Normal 135-145 [facility] Comment on above: Performed By: #### 2 022228, [id number], [id number] #### [facility] [address] [place] [address] Urea nitrogen [Mass/Vol] 29 mg/dL High 5-21 [facility] Comment on above: Performed By: #### 2 862999, [id number], [id number] #### [facility] [address] [place] [address] Urea nitrogen/Creatinine [Mass ratio] 24 No Units High 10-20 [facility] Comment on above: Performed By: #### 2 588884, [id number], [id number] #### [facility] [address] [place] [address] CHEMISTRYOrdered By: SYSTEM SYSTEM on 04-13-2023 Anion gap [Moles/Vol] 14 mmol/L Normal 6 - 16 mEq/L [facility] Remisol Calcium [Mass/Vol] 9.1 mg/dL [...] 1.2 mg/dL Normal 0.5 - 1.3 mg/dL [facility] Remisol GFR/1.73 sq M.predicted among non-blacks MDRD (S/P/Bld) [Vol rate/Area] 47 mL/min/1.73 m2 Low >=59mL/min/1 .73 m2 [facility] Chem S Comment on above: Interpretive Data: C hronic kidney disease could be indicated at eGFR's of less than 60 mL/min/1.73m2. Kidney failure is indicated at less than 15 mL/min/1.73m2. Glucose [Mass/Vol] 96 mg/dL Normal 55 - 199 mg/dL [facility] Remisol Comment on above: Interpretive Data: I f this glucose result represents a fasting glucose, interpretation should refer to the following reference range: 55-99 mg/dL Potassium [Moles/Vol] 3.9 mmol/L Normal 3.5 - 5.3 mmol/L [facility] Remisol Sodium [Moles/Vol] 144 mmol/L Normal 135 - 145 mmol/L FT Remisol Triglyceride [Mass/Vol] 106 mg/dL Normal <=149mg/dL F [facility] Remisol Urea nitrogen [Mass/Vol] 29 mg/dL High 5 - 21 mg/dL [facility] Remisol Urea nitrogen/Creatinine [Mass ratio] 24 mg/mg [...] oral tablet) glucosamine oxymetazoline nasal (Afrin 0.05% [place]) Procedure History Cystourethroscopy with dilation of urethral [...] Pending Diagnostic Test Results None Pharmacy Information [facility] Discharge Instructions Follow up appts as writtenNo driving until cleared by PCP or neuroTake all medications as ordered, monitor prn medication use Previously Scheduled Follow-Up Appointments Sunday 1:00 PM EST With: MIAH ROE, BRENDA Poole Where: [facility] Normal [facility] Inpatient Clinical Summaryon 04-13-2023 Inpatient Clinical Summary [address] [address] Clinical Summary Person Information: Name: AARON LEWIS Age: 78 Years : 1945 Sex: Female PCP: JEREMIAH REED MD Marital Status: Race: White Ethnicity: Non- or Language: Sri Lankan Visit Id: Visit Reason: Altered mental status; AMS Speciality: Acuity: Enc Type: Observation Med Service: Medical Arrival: 04/12/2023 12:15:14 Discharge: Dispo Type: Admitted as IP to this Hosp Address: [address] [place] [address] [address] [place] [id number] Provider Notes: Diagnosis: 1:AMS (altered mental status); [...] Follow up: With: Address: When: Johnnie BERNAL, Ehsan[address] [address] Within 1 to 2 weeks Comments: This office is closed on Fridays. Please call the office on Sunday April 16, 2023 for a follow up appiontment. Thank you. With: Address: When: JEREMIAH REED [address] [place] [address] [facility] (1) Within 2 to 4 days Comments: Call for followup appointment With: Address: When: [facility] Comments: Call for followup appointment for anxiety/depression care. Type Location Start [facility] Office Visit [facility] 06/05/2023 1:00 PM 06/05/2023 1:15 PM Confirmed Patient Education Information: Confusion aspirin Normal [facility] Inpatient Patient Summaryon 04-13-2023 Inpatient Patient Summary [address] [address] Patient Discharge Instructions PERSON INFORMATION Name: SENIA LEWISTHIA Flori Date of : 1945 Current Date: [...] With: Address: When: Johnnie BERNAL, ALPHONSE Choi [address] [address] Within 1 to 2 weeks Comments: This office is closed on Fridays. Please call the office on Sunday April 16, 2023 for a follow up appiontment. Thank you. With: Address: When: JEREMIAH REED [address] [place] [address] [facility] (iDoneThis Within 2 to 4 days Comments: Call for followup appointment With: Address: When: [facility] Comments: Call for followup appointment for anxiety/depression care. In the event that this physician does not participate in your insurance network, please consult with your insurance company to find a nearby participating provider. Type Location [facility] Office Visit [facility] 06/05/2023 1:00 PM 06/05/2023 1:15 PM [...] 2 adán (more content not included)... Normal [facility] Interdisciplinary Note - Danie e Manageron 04-13-2023 Interdisciplinary Note - Olericulturist Pt is awake and alert in bed, [...] to HH [place], prefers to use [facility] as she has used in past, referral to resource center, anticipate DC home today. Nursing and ICT TEACHER updated. Normal [facility] Comment on above: Result Comment: Elec tronically Signed By: Thu ALVARES, Sallie\.mario\Date and Time Signed: 04/13/23 12:17 EST Interdisciplinary Note - Ashly n 04-13-2023 Interdisciplinary Note - OT OT [facility] six clicks score = no further OT needs. Patient requires Dist sup w/ transfers. completes Adls w/ dist sup after set up. Dc inpatient OT services as pt appears close to baseline status and has all bathroom dme already in place at home. Normal [facility] Interdisciplinary Note - Soc ial Workeron 04-13-2023 Interdisciplinary Note - Nursing Instructor This SW met with patient today to [...] any substances. SW will remain available. Normal [facility] Lipid Panelon 04-13-2023 Cholesterol [Mass/Vol] 164 mg/dL Normal 120-200 [facility] Comment on above: Performed By: #### 2 448608, 5467782, [id number] #### [facility] Laboratory [address] [place] [address] Cholesterol in HDL [Mass/Vol] 62 mg/dL Invalid Interpretation Code [facility] Comment on above: Result Comment: HDL > or equal to 60 mg/dL: Low cardiovascular risk HDL < 40 mg/dL : High cardiovascular risk Performed By: #### 2 649912, 3277041, 79442058 #### [facility] [address] [place] [address] Cholesterol in LDL [Mass/Vol] 73 mg/dL Normal <=129 [facility] Comment on above: Performed By: #### 2 604333, 9846027, 05192080 #### [facility] [address] [place] [address] Cholesterol in VLDL [Mass/Vol] 21 mg/dL Normal 7-40 [facility] Comment on above: Performed By: #### 2 457721, 0083427, 61714706 #### [facility] [address] [place] [address] Triglyceride [Mass/Vol] 106 mg/dL Normal <=149 [facility] Comment on above: Performed By: #### 2 162538, 0425125, 87596898 #### [facility] [address] [place] [address] MRI Brain w/o Contraston MRI Brain w/o [...] LESLEY Technologist: MAXI Technical Comments None Normal [facility] Message from Medicareon 12 Message from Medicare [id number] 20 [id number] #1.00TIFF Normal [facility] Monitor Recordon 04-13-2023 Monitor Record [id number] 6#1.00TIFF Normal [facility] Monitor Record [id number] 8#1.00TIFF Normal [facility] eGFRon 04-13-2023 GFR/1.73 sq M.predicted among non-blacks MDRD (S/P/Bld) [Vol rate/Area] 47 mL/min/1.73 m2 Low >=59 [facility] Comment on above: Order Comment: Order added by Discern Expert. Result Comment: Costumed Character sally kidney disease could be indicated at eGFR's of less than 60 mL/min/1.73m2. Kidney failure is indicated at less than 15 mL/min/1.73m2. Performed By: #### 2 272969, 4538926, 11432677 #### [facility] [address] [place] [address] Auto Diffon 04-12-2023 Basophils/100 WBC (Bld) 0.4 % Normal 0.0-2.0 [facility] Comment on above: Order Comment: Order Added by Discern Expert. Performed By: #### 2 068367, 28206596, 4753689, 06162732, 8451553, 52419293, 180707537, 53757915, 5891524, 7468638, 3503245, 2553017 ####[facility] [address] [place] [address] Basophils/Leukocytes Auto (Bld) [Pure # fraction] 0.1 E9/L Normal 0.0-0.2 [facility] Comment on above: Order Comment: Order Added by Discern Expert. Performed By: #### 2 822961, 06690096, 2666092, 65589906, 1361971, 52152524, 294455295, 02917552, 2300544, 4181251, 0189073, 3861281 ####[facility] [address] [place] [address] Eosinophils/100 WBC (Bld) 0.1 % Normal 0.0-8.0 [facility] Comment on above: Order Comment: Order Added by Discern Expert. Performed By: #### 2 117709, 84711706, 2099922, 09987029, 3963419, 51133825, 995867558, 36058986, 6346480, 8478349, 5820815, 0653184 ####[facility] [address] [place] [address] Eosinophils/Leukocytes Auto (Bld) [Pure # fraction] 0.0 E9/L Normal 0.0-0.5 [facility] Comment on above: Order Comment: Order Added by Discern Expert. Performed By: #### 2 554400, 83614123, 1688806, 29206700, 5411994, 28274758, 925604667, 47772446, 7122349, 3995158, 6831970, 0663350 ####[facility] [address] [place] [address] Lymphocytes/100 WBC (Bld) 9.7 % Low 14.0-50.0 [facility] Comment on above: Order Comment: Order Added by Discern Expert. Performed By: #### 2 570784, 89076513, 6345240, 57279782, 8743647, 45334708, 200473205, 27920506, 7744939, 7699209, 2752726, 8121974 ####[facility] [address] [place] [address] Lymphocytes/Leukocytes Auto (Bld) [Pure # fraction] 1.5 E9/L Normal 1.0-4.0 [facility] Comment on above: Order Comment: Order Added by Discern Expert. Performed By: #### 2 013433, 77787269, 0854252, 55245527, 9392610, 33861071, 314309844, 95033811, 2456019, 4920046, 9259399, 1807692 ####[facility] [address] [place] [address] Monocytes/100 WBC (Bld) 7.8 % Normal 4.0-14.[address] [facility] Comment on above: Order Comment: Order Added by Discern Expert. Performed By: #### 2 291957, 30005720, 3494132, 72074233, 6098328, 07686886, 811610447, 31810301, 6514472, 4051695, 8670088, 3030166 ####[address] [place] [address] Monocytes/Leukocytes Auto (Bld) [Pure # fraction] 1.2 E9/L High 0.2-1.0 [facility] Comment on above: Order Comment: Order Added by Discern Expert. Performed By: #### 2 222504, 43834496, 8955956, 66919049, 4169880, 24025713, 372292235, 49255285, 2666299, 9488478, 4217192, 1729838 ####[facility] [address] [place] [address] Neutrophils/100 WBC (Bld) 82.0 % High 36.0-75.0 [facility] Comment on above: Order Comment: Order Added by Discern Expert. Performed By: #### 2 532336, 17263051, 7789449, 15374415, 9533835, 53112634, 197143055, 69896021, 2759700, 8587575, 4946512, 4573879 ####[facility] [address] [place] [address] Neutrophils/Leukocytes Auto (Bld) [Pure # fraction] 12.4 E9/L High 2.0-7.5 [facility] Comment on above: Order Comment: Order Added by Discern Expert. Performed By: #### 2 702552, 79435425, 3306218, 68895871, 0688795, 53016079, 452402532, 71509515, 3239775, 6206634, 0811383, 8766026 ####[facility] [address] [place] [address] BMPon 04-12-2023 Creatinine [Mass/Vol] 1.8 mg/dL High 0.5-1.3 [facility] Comment on above: Performed By: #### 2 019584, 30375926, 2591751, 46540673, 8349933, 11985859, 831490732, 22278294, 8171324, 3246238, 8264774, 2339549 ####[facility] [address] [place] [address] Urea nitrogen [Mass/Vol] 39 mg/dL High 5-21 [facility] Comment on above: Performed By: #### 2 849926, 34498729, 4244944, 07454728, 0060713, 70059637, 756300894, 81960539, 8995944, 5712922, 6165615, 5747796 ####[facility] [address] [place] [address] Urea nitrogen/Creatinine [Mass ratio] 22 No Units High 10-20 [facility] Comment on above: Performed By: #### 2 569467, 36496667, 9478462, 11965751, 6083265, 54018433, 321279196, 08386044, 1086982, 6883472, 6696308, 6954531 ####[facility] [address] [place] [address] Anion gap [Moles/Vol] 16 mmol/L Normal 6-16 [facility] Comment on above: Performed By: #### 2 941177, 29718586, 2278267, 71515296, 2901104, 64875881, 949790183, 73863346, 8830877, 9731311, 1253045, 8516786 ####[facility] [address] [place] [address] Calcium [Mass/Vol] 10.0 mg/dL Normal 8.9-11.1 [facility] Comment on above: Performed By: #### 2 017540, 78732147, 2288475, 16566816, 0732014, 77914318, 390776100, 84635543, 0735733, 6827027, 5323871, 6764179 ####[facility] [address] [place] [address] Chloride [Moles/Vol] 109 mmol/L Normal 101-111 [facility] Comment on above: Performed By: #### 2 578493, 79985139, 6432396, 10205738, 3135891, 14979874, 728838185, 96256261, 0867023, 3829528, 0654758, 1997760 ####[facility] [address] [place] [address] CO2 [Moles/Vol] 23 mmol/L Normal 21-31 [facility] Comment on above: Performed By: #### 2 976458, 80208520, 6752299, 05471532, 8537837, 56300231, 319541691, 24878786, 3737844, 5506860, 5458700, 1364599 ####[facility] [address] [place] [address] Glucose [Mass/Vol] 89 mg/dL Normal 55-199 [facility] Comment on above: Result Comment: If t his glucose result represents a fasting glucose, interpretation should refer to the following reference range: 55-99 mg/dL Performed By: #### 2 853410, 38499938, 5877086, 02626413, 6060025, 82274798, 108677145, 53020258, 8200312, 4771119, 5999785, 3501244 ####[facility] [address] [place] [address] Potassium [Moles/Vol] 4.3 mmol/L Normal 3.5-5.3 [facility] Comment on above: Performed By: #### 2 112276, 64875190, 4943140, 23989650, 4864028, 46052943, 675949427, 14176808, 5318470, 0343112, 3384554, 4546822 ####[facility] [address] [place] [address] Sodium [Moles/Vol] 144 mmol/L Normal 135-145 [facility] Comment on above: Performed By: #### 2 367428, 90795086, 5987569, 32005959, 7082368, 80679058, 482532111, 93274771, 1116083, 6965533, 8210716, 5875071 ####[facility] [address] [place] [address] CBC w/ Auto Diffon 3 Erythrocyte distribution width (RBC) [Ratio] 15.3 % High 10.9-14.2 [facility] Comment on above: Performed By: #### 2 340443, 08325049, 1633736, 70216732, 9209676, 69676838, 810246586, 05736349, 1738841, 9351134, 5579138, 4225888 ####[facility] [address] [place] [address] Hematocrit (Bld) [Volume fraction] 44.4 % Normal 34.0-46.0 [facility] Comment on above: Performed By: #### 2 481660, 44776268, 3659588, 43664658, 0469199, 35020470, 866099905, 64406014, 1343087, 7293481, 0312122, 9527384 ####[facility] [address] [place] [address] Hemoglobin (Bld) [Mass/Vol] 14.0 g/dL Normal 12.0-16.0 [facility] Comment on above: Performed By: #### 2 229745, 71266030, 4134444, 29155289, 9045520, 38529513, 094038425, 57324551, 5390229, 0637338, 5961924, 2851183 ####[facility] [address] [place] [address] MCH (RBC) [Entitic mass] 28.5 pg Normal 27.0-34.0 [facility] Comment on above: Performed By: #### 2 105644, 40076576, 6268168, 34389943, 3404365, 04928764, 618379990, 39346522, 0983819, 3332052, 2790554, 0270642 ####[address] [address] MCHC (RBC) [Mass/Vol] 31.6 g/dL Normal 31.4-36.0 [facility] Comment on above: Performed By: #### 2 282671, 21347799, 9260267, 01227459, 7919951, 84893259, 678399233, 66138287, 8501357, 0153189, 1637476, 1740992 ####[address] [place] [address] MCV (RBC) [Entitic vol] 89.9 fL Normal 80.0-100.0 [facility] Comment on above: Performed By: #### 2 312874, 05694478, 0657525, 10523439, 8572438, 61476825, 562250566, 74852087, 6538483, 2569283, 5745537, 1445557 ####[address] [place] [address] Platelet mean volume (Bld) [Entitic vol] 9.8 fL Normal 6.4-10.8 [facility] Comment on above: Performed By: #### 2 030588, 06676064, 5095209, 70861773, 8869115, 66359053, 559753230, 59394617, 4568020, 9038426, 7906581, 0945045 ####[facility] [address] [place] [address] Platelets (Bld) [#/Vol] 285.0 E9/L Normal 150.0-500.0 [facility] Comment on above: Performed By: #### 2 285267, 21172839, 5370205, 86495616, 5702462, 22212106, 563139501, 16014623, 8609088, 6769538, 2922124, 2114720 ####[facility] [address] [place] [address] RBC (Bld) [#/Vol] 4.9 E12/L Normal 4.3-5.9 [facility] Comment on above: Performed By: #### 2 394204, 02325164, 6983455, 18629249, 9461462, 28788768, 309945431, 35009277, 8613260, 6204910, 1783896, 3751909 ####[facility] [address] [place] [address] WBC corrected for nucl RBC Auto (Bld) [#/Vol] 15.1 E9/L High 4.0-11.0 [facility] Comment on above: Performed By: #### 2 087682, 06436655, 9859031, 52349741, 2760094, 20410713, 257675515, 03014067, 9399220, 0184299, 1905470, 0234113 ####[facility] [address] [place] [address] CHEMISTRYOrdered By: SYSTEM SYSTEM on 04-12-2023 Amphetamines [...] ratio] 22 mg/mg High 10 - 20 [facility] Remisol CHEMISTRYOrdered By: Shauna kendall on 04-12-2023 HbA1c (Bld) [Mass fraction] 5.9 % Normal <=5.9% [facility] ChemAutoSS CHEMISTRYOrdered By: Lab ROP User on 04-12-2023 Glucose [Mass/Vol] 88 mg/dL Normal 55 - 99 mg/dL [facility] POC Subsection Comment on above: Result Comment: Jose matos RN/ POC Username [place] Invalid Interpretation Code [facility] POC Subsection Sodium [Moles/Vol] [id number] mmol/L Invalid Interpretation Code [facility] POC Subsection Sodium [Moles/Vol] 664503420 mmol/L Invalid Interpretation Code [facility] POC Subsection COAGULATIONOrdered By: Myra Grayson on 04-12-2023 aPTT Coag (PPP) [Time] 29.5 s Normal 25.1 - 36.5 second(s) [facility] Auto [...] [Relative time] 0.9 {INR} Invalid Interpretation Code [facility] Auto Coag Comment on above: Interpretive Data: I NR results are specifically intended to assess patients stabilized on long-term Anticoagulation therapy suggested INR s Less Intensive Anticoagulation 2.0 3.0 Conventional Range 3.0 4.5 PT Coag (PPP) [Time] 10.4 s Normal 9.4 - 1 2.5 second(s) [facility] Auto [...] MD Transcribed by: LESLEY Technologist: SOFIA Guaman [facility] CT Spine Cervical w/o Contra ston [...] MD Transcribed by: DP Technologist: NMP Normal [facility] Capillary Glucose POCon 03-16 Glucose [Mass/Vol] 88 mg/dL Normal 55-99 [facility] Comment on above: Result Comment: Jose matos RN/ Performed By: #### 2 53407544 #### [facility] [address] [place] [address] Consent for Treatmenton 03-16 Consent for Treatment [id number] #1.00TIFF Normal [facility] ED Clinical Summaryon 2022 ED Clinical Summary [address] [address] ED Clinical Summary Person Information Name: AARON LEWIS Elisa/[facility] Age: 78 Years : 1945 Sex: Female Language: Sri Lankan PCP: JEREMIAH REED MD Marital Status: Visit Id: Visit Reason: Altered mental status; AMS Speciality: Acuity: 2 Enc Type: Observation Med Service: Emergency Arrival: 04/12/2023 12:15:14 Discharge: LOS: 000 04:45 Checkin: 04/12/2023 12:15:14 Checkout: 04/12/2023 17:00:36 Dispo Type: Admitted as IP to this [facility] EVENTS: Event Name Event Status Request Date/Time [...] 04/12/2023 16:57:50 04/12/2023 16:57:50 ADDRESS: [facility] [place] [id number] PHYS DOC NOTES: MEDICAL INFORMATION: Prescriptions Given: [...] vein thrombosis (DVT) prophylaxis; Depression, unspecified Normal [facility] ED Note-Physicianon 04-12-20 ED Note-Physician Basic [...] had a urinary tract infection diagnosed at [place] for which she is on antibiotics. She [...] vein thrombosis (DVT) prophylaxis (Z79.899: Other extermination inspector (current) drug therapy) Depression, unspecified (F32.A: Depression, [...] 500 mL 500 mL, 500 mL, IV [id number] units/mLInjection [F], 5000 unit(s), SubCutaneous oxym0.05Spr [F], [...] of uret (more content not included)... Normal [facility] Comment on above: Result Comment: Elec tronically Signed By: Abran Holguin DO\.br\Date and Time Signed: 04/12/23 22:13 EST ED Patient Education Noteon 04-12-2023 ED Patient Education Note Normal [facility] ED Patient Summaryon 023 ED Patient Summary [address] [id number] Patient Discharge Instructions Person Information Name: AARON LEWIS Age: 78 Years Arrival Date: 04/12/2023 12:15:14 Discharge Diagnosis: 1:AMS (altered mental status); 2:Elevated serum creatinine; 3:HTN (hypertension); 4:Anxiety and depression; 5:Peripheral neuropathy; 6:Chronic GERD; 7:OAB (overactive bladder); 8:Obesity; 9:On deep vein thrombosis (DVT) prophylaxis; Depression, unspecified Primary Care Physician: JEREMIAH REED MD Provider Information Primary Provider: Abran Holguin DO [employer] Sales Manager:None The exam and treatment you received in the Emergency Department were for an urgent problem and are not intended as complete care. It is important that you follow up with a doctor, nurse practitioner, or physician?s loan assistant for ongoing care. If your [...] opioids can be used to help relieve zwchtgdi-ww-auafuz pain and are often prescribed following a [...] struggling with addiction, tell your health pet care attendant and ask for guidance or (more content not included)... Normal [facility] Ethanolon 04-12-2023 Ethanol [Mass/Vol] mg/dL Normal <=7 [facility] Comment on above: Performed By: #### 2 565377 #### [facility] [address] [place] [address] Folateon 04-12-2023 Folate [Mass/Vol] ng/mL Normal >=6.7 [facility] Comment on above: Performed By: #### 2 014990 #### [facility] [address] [place] [address] HEMATOLOGYOrdered By: SYSTEM SYSTEM on 04-12-2023 Basophils/100 [...] 04-12-2023 Albumin [Mass/Vol] 4.4 g/dL Normal 3.3-5.0 [facility] Comment on above: Performed By: #### 2 990048, 97173310, 2264680, 82460900, 9787870, 55098020, 666465518, 80281372, 2878732, 8112281, 2375955, 1457922 ####[facility] [address] [place] [address] Albumin/Globulin (S) [Mass conc ratio] 1.3 Normal 1.1-2.2 [facility] Comment on above: Performed By: #### 2 626032, 99248707, 5751487, 18019482, 4902960, 39503389, 605123326, 55021923, 0001733, 6772068, 5213801, 2400236 ####[facility] [address] [place] [address] ALP [Catalytic activity/Vol] 78 Int._Unit/L Normal 21-98 [facility] Comment on above: Performed By: #### 2 466570, 13329249, 4872146, 87822779, 8649511, 07418401, 787391864, 50245025, 1443525, 5410622, 0012891, 6584356 ####[facility] [address] [place] [address] ALT No additional P-5'-P [Catalytic activity/Vol] 22 Int._Unit/L Normal 6-46 [facility] Comment on above: Performed By: #### 2 316134, 63217660, 8831605, 60447830, 7084347, 61603142, 398885346, 53937844, 7417014, 4739904, 1308799, 8923501 ####[facility] [address] [place] [address] AST [Catalytic activity/Vol] 25 Int._Unit/L Normal 5-43 [facility] Comment on above: Performed By: #### 2 449970, 79841924, 2550363, 56475841, 0670369, 73363074, 187283109, 49685344, 8684533, 7474652, 6174578, 5047533 ####[facility] [address] [place] [address] Bilirubin [Mass/Vol] 0.7 mg/dL Normal 0.0-1.1 [facility] Comment on above: Performed By: #### 2 068292, 60826172, 2008192, 20932578, 3790277, 91670061, 605324541, 09136038, 7436454, 7146734, 5025962, 2930680 ####[facility] [address] [place] [address] Bilirubin.direct [Mass/Vol] 0.1 mg/dL Normal 0.1-0.4 [facility] Comment on above: Performed By: #### 2 355866, 30473101, 2401627, 45683405, 0220864, 51900856, 428608959, 71261374, 4551878, 2897908, 4313109, 7589694 ####[facility] [address] [place] [address] Bilirubin.indirect [Mass or moles/Vol] 0.6 mg/dL Normal 0.1-0.9 [facility] Comment on above: Performed By: #### 2 261879, 85194637, 6097757, 86271689, 8438978, 33334452, 209567425, [id number], 2141112, 9120697, 0805782, 3063569 ####[address] [place] [address] Globulin (S) [Mass/Vol] 3.3 g/dL Normal 1.4-4.[address] [facility] Comment on above: Performed By: #### 2 608714, 05624125, 4395667, 57205863, 1665895, 30789146, 052190577, 26507281, 0822270, 2558131, 8915383, 0412418 ####[facility] [address] [place] [address] Protein [Mass/Vol] 7.7 g/dL Normal 6.0-7.8 [facility] Comment on above: Performed By: #### 2 760039, 08792363, 8651841, 98480686, 8289156, 51379760, 352337380, 72631465, 9677485, 9638752, 2376242, 4071318 ####[facility] [address] [place] [address] [id number] 04-12-2023 HbA1c (Bld) [Mass fraction] 5.9 % Normal <=5.9 [facility] Comment on above: Performed By: #### 2 042161 #### [facility] Laboratory [address] [place] [address] Magnesiumon 04-12-2023 Magnesium [Mass/Vol] 2.0 mg/dL Normal 1.3-2.4 [facility] Comment on above: Performed By: #### 2 264209 #### [facility] [address] [place] [address] Monitor Recordon 04-12-2023 Monitor Record [id number] 0#1.00TIFF Normal [facility] Monitor Record [id number] 24#1.00TIFF Normal [facility] PT & PTTon 04-12-2023 aPTT Coag (PPP) [Time] 29.5 second(s) Normal 25.1-36.5 [facility] Comment on above: Result Comment: Para [...] - 109.0 sec. Performed By: #### 2 442665, 19818307, 0709043, 10921332, 5370488, 82698075, 870443088, 95863368, 7621927, 3239462, 3704691, 1190161 ####[facility] [address] [place] [address] INR Coag (PPP) [Relative time] 0.9 {INR} Invalid Interpretation Code [facility] Comment on above: Result Comment: INR results are specifically intended to assess patients stabilized on long-term Anticoagulation therapy suggested INR?s ?Less Intensive Anticoagulation? 2.0 ? 3.0 Conventional Range 3.0 ? 4.5 Performed By: #### 2 873265, 80849841, 9391265, 74663629, 7717454, 22944893, 621605754, 27774285, 8655733, 6785792, 6642838, 2933695 ####[facility] [address] [place] [address] PT Coag (PPP) [Time] 10.4 second(s) Normal 9.4-12.5 [facility] Comment on above: Result Comment: 15 [...] no normal ranges. Performed By: #### 2 241654, 76001409, 1781492, 63826652, 6648208, 74083471, 796377302, 38903164, 0991627, 2451038, 3534107, 3267923 ####[facility] [address] [place] [address] Pre-Arrival Noteon 3 Pre-Arrival Note Pre-Arrival Summary Name: , Current Date: 04/12/2023 12:18:15 EST Gender: Female Date of : Age: 88 Pre-Arrival Type: EMS ETA: 04/12/2023 12:29:00 EST Primary Care Physician: Presenting Problem: altered mental status Pre-Arrival User: Paul ALVARES, Brenda Talbert Referring Source: Location: Completion Date/Time: 04/12/2023 11:59:00 [facility] Emergency Department Pre-Hospital Report Form Vital Signs: Pre-Hospital Report: Treatment in Route: Response to Treatment: Misc. Issues: Normal [facility] RAD - MRI Screening Formon 1 06-12-2022 RAD - MRI Screening Form [id number] 7#1.00TIFF Normal [facility] TSH With T4fr Reflexon 04-12 TSH Qn 0.52 m[IU]/L Normal 0.34-5.60 [facility] Comment on above: Performed By: #### 2 795460 #### [facility] Laboratory [address] [place] [address] Troponin 0 Hr.on 04-12-2023 Troponin I.cardiac [Mass/Vol] 11.90 pg/mL Normal 10.10-27.10 [facility] Comment on above: Order Comment: per yoshi LINTON RN is drawing labs and sending [id number] 04/12/2023 12:26:28 EST Result Comment: The 95% CI (Confidence Interval) PPV (Positive Predictive Value) for myocardial infarction in females is 38 pg/mL, in males 51 pg/mL. The results should be used in conjunction with clinical conditions of myocardial infarction. (Access High Sensitivity Troponin I Instructions For Use, Laly Jonathan, December 2017) Performed By: #### 2 499618, 09135498, 3933128, 69324621, 3218310, 01176168, 561173328, 13873808, 6939065, 2990184, 5601971, 2257290 ####[facility] [address] [place] [address] U Drug Screenon 04-12-2023 Benzodiazepines Ql (U) Positive Abnormal Negative [facility] Comment on above: Result Comment: Crit ical Result UD_BENZ:POS Called to ABRAN HOLGUIN AT ER by URSULA LOZANO And Read Back For Confirmation at: 04/12/2023 15:35:32\Unconfirmed by alternate method\Results verified by repeat analysis\No confirmation requested by Physicmarie Negative Cutoff: <200 ng/mL Performed By: #### 2 006070 #### [facility] [address] [place] [address] Amphetamines Screen method >1000 ng/mL Ql (U) Negative Normal Negative [facility] Comment on above: Result Comment: Nega tive Cutoff: <1000 ng/mL Performed By: #### 2 303406 #### [facility] [address] [place] [address] Barbiturates Screen Ql (U) Negative Normal Negative [facility] Comment on above: Result Comment: Nega tive Cutoff: <200 ng/mL Performed By: #### 2 436258 #### [facility] [address] [place] [address] Cocaine Ql (U) Negative Normal Negative [facility] Comment on above: Result Comment: Nega tive Cutoff: <300 ng/mL Performed By: #### 2 098177 #### [facility] [address] [place] [address] Opiates Screen Ql (U) Negative Normal Negative [facility] Comment on above: Result Comment: Nega tive Cutoff: <300 ng/mL Performed By: #### 2 015849 #### [facility] [address] [place] [address] Phencyclidine Screen method >25 ng/mL Ql (U) Negative Normal Negative [facility] Comment on above: Result Comment: Nega tive Cutoff: <25 ng/mL These drug screen results are to be used for medical (i.e., treatment) purposes only. Unconfirmed drug screening results must not be used for non-medical purposes (e.g., employment testing, legal testing). Performed By: #### 2 622549 #### [facility] [address] [place] [address] Tetrahydrocannabinol Screen method >50 ng/mL Ql (U) Negative Normal Negative [facility] Comment on above: Result Comment: Nega tive Cutoff: <50 ng/mL Performed By: #### 2 673112 #### [facility] [address] [place] [address] UA With Cult Reflexon 2022 Bacteria LM Ql (Urine sed) TRACE Normal Trace [facility] Comment on above: Performed By: #### 1 [id number] #### [facility] [address] [place] [address] Bilirubin Ql (U) Negative Normal Negative [facility] Comment on above: Performed By: #### 1 5073897 #### [facility] [address] [place] [address] Clarity (U) CLEAR Normal Clear [facility] Comment on above: Performed By: #### 1 2597581 #### [facility] [address] [place] [address] Color (U) YELLOW Normal Yellow [facility] Comment on above: Performed By: #### 1 2917706 #### [facility] [address] [place] [address] Epithelial cells.squamous LM.HPF (Urine sed) [#/Area] 0-2 Normal 0-2 [facility] Comment on above: Performed By: #### 1 4908981 #### [facility] [address] [place] [address] Glucose Test strip (U) [Mass/Vol] Negative Normal Negative [facility] Comment on above: Performed By: #### 1 6098265 #### [facility] [address] [place] [address] Hemoglobin Ql (U) Negative Normal Negative [facility] Comment on above: Performed By: #### 1 8325853 #### [facility] [address] [place] [address] Ketones (U) [Mass/Vol] TRACE Abnormal Negative [facility] Comment on above: Performed By: #### 1 0991046 #### [facility] [address] [place] [address] [employer] RBC (Bld) [Mass ratio] 0-3 Normal 0-3 [facility] Comment on above: Performed By: #### 1 [id number] #### [facility] [address] [place] [address] Mucus Ql (Urine sed) TRACE Normal [facility] Comment on above: Performed By: #### 1 1070589 #### [facility] [address] [place] [address] Nitrite Ql (U) Negative Normal Negative [facility] Comment on above: Performed By: #### 1 5889072 #### [facility] [address] [place] [address] pH (U) 5.0 [pH] Invalid Interpretation Code 5.0-9.0 [facility] Comment on above: Performed By: #### 1 3717969 #### [facility] [address] [place] [address] Protein (U) [Mass/Vol] TRACE Abnormal Negative [facility] Comment on above: Performed By: #### 1 9176428 #### [facility] [address] [place] [address] Specific gravity (U) [Rel density] >=1.030 Invalid Interpretation Code 1.005-1.030 [facility] Comment on above: Performed By: #### 1 8838260 #### [facility] [address] [place] [address] Type of Urine collection method Catheter Normal [facility] Comment on above: Performed By: #### 1 1347935 #### [facility] [address] [place] [address] Urobilinogen Qn (U) 0.2 {Nevaeh'U}/dL Normal 0.0-1.0 [facility] Comment on above: Performed By: #### 1 1510137 #### [facility] [address] [place] [address] WBC Auto Ql (U) Negative Normal Negative [facility] Comment on above: Performed By: #### 1 9545233 #### [facility] [address] [place] [address] WBC casts LM.LPF (Urine sed) [#/Area] 0-3 Normal [facility] Comment on above: Performed By: #### 1 2819779 #### [facility] [address] [place] [address] WBC LM.HPF (Urine sed) [#/Area] 0-5 Normal 0-5 [facility] Comment on above: Performed By: #### 1 2658546 #### [facility] [address] [place] [address] URINALYSISOrdered By: Bonny Workman on 04-12-2023 Bacteria [...] Interpretation Code Negative [facility] UA Auto SS [employer] RBC (Bld) [Mass ratio] 0-3 /HPF Normal [...] [facility] UA Auto SS Urobilinogen Qn (U) 0.7355401 {Nevaeh'U}/dL Normal 0.0 - 1.0 EU/dL [facility] UA Auto SS WBC Auto Ql (U) Negative (04/12/23 2:32 PM) Normal Negative [facility] UA Auto SS WBC casts LM.LPF (Urine sed) [#/Area] 0-3 (04/12/23 2:32 PM) Normal [facility] UA Auto SS WBC LM.HPF (Urine sed) [#/Area] 0-5 /HPF Normal 0-5/HPF [facility] UA Auto SS Vit B12on 04-12-2023 Cobalamin (Vitamin B12) [Mass/Vol] 1018 pg/mL Normal 50-1500 [facility] Comment on above: Performed By: #### 2 204958 #### [facility] [address] [place] [address] XR Chest Single Viewon 04-12 XR Chest [...] mGy = na DAP = na Normal [facility] eGFRon 04-12-2023 GFR/1.73 sq M.predicted among non-blacks MDRD (S/P/Bld) [Vol rate/Area] 29 mL/min/1.73 m2 Low >=59 [facility] Comment on above: Order Comment: Order added by Discern Expert. Result Comment: Costumed Character sally kidney disease could be indicated at eGFR's of less than 60 mL/min/1.73m2. Kidney failure is indicated at less than 15 mL/min/1.73m2. Performed By: #### 2 536643, 41623679, 5677185, 29487529, 1070722, 14548116, 219499980, 61585848, 8724099, 6695732, 2955021, 7462375 ####[facility] [address] [place] [address] XR CSPINE OBL FLEX_EXTon XR CSPINE OBL [...] Serena OSORIO Date: 2022-09-02 00:37 Normal [facility] [place] [facility] MRI SHOULDER RT WO CONon MRI [...] EHSAN MILLER Date: 2022-08-22 09:25 Normal [facility] XR SHOULDER RT 2V or >on [...] BRENT MALDONADO Date: 2022-08-10 22:45 Normal [facility] CT CHEST WO CONon 06-12-2022 CT [...] MILLER Date: 2022-06-12 16:56 Normal [facility] VIT D 1 25 DIHYDROXYon 04-24 Calcitriol(1,25 di-[place] Vit D) 91.0 pg/mL Critically high 24.8-81.5 [facility] Comment on above: Performed By: #### V [id number] #### [facility] [address] [place] [address] Dr. Helio Cee CULTURE URINEon 04-23-2022 CULTURE [...] F Trimethoprim/Sulfame thoxazole <=20 S F Normal [facility] Comment on above: Performed By: #### U RCX #### [facility] [address] [place] [address] Dr. Helio Cee CBC AUTO DIFFon 04-21-2022 BASO # 0.0 103/ul Normal 0.0-0.1 [facility] Comment on above: Performed By: #### E RUR #### [facility] [address] [place] [address] Dr. Helio Cee Basophils/100 WBC (Bld) 0.4 % Normal 0.2-2.0 [facility] Comment on above: Performed By: #### E RUR #### [facility] [address] [place] [address] Dr. Helio Cee EO # 0.4 103/ul Normal 0.0-0.7 [facility] Comment on above: Performed By: #### E RUR #### [facility] [address] [place] [address] Dr. Helio Cee Eosinophils/100 WBC (Bld) 4.0 % Normal 0.9-7.0 [facility] Comment on above: Performed By: #### E RUR #### [facility] [address] [place] [address] Dr. Helio Cee Erythrocyte distribution width (RBC) [Ratio] 15.2 % Critically high 11.0-15.0 [facility] Comment on above: Performed By: #### E RUR #### [facility] [address] [place] [address] Dr. Helio Cee Hematocrit (Bld) [Volume fraction] 41.0 % Normal 36.0-48.0 [facility] Comment on above: Performed By: #### E RUR #### [facility] [address] [place] [address] Dr. Helio Cee Hemoglobin (Bld) [Mass/Vol] 12.9 g/dL Normal 12.0-16.0 [facility] Comment on above: Performed By: #### E RUR #### [facility] [address] [place] [address] Dr. Helio Cee IG # 0.04 10e3/ul Critically high 0.00-0.03 [facility] Comment on above: Performed By: #### E RUR #### [facility] [address] [place] [address] Dr. Helio Cee IG % 0.4 % Normal 0.0-0.5 [facility] Comment on above: Performed By: #### E RUR #### [facility] [address] [place] [address] Dr. Helio Cee LYMPH # 1.1 103/ul Critically low 1.2-3.8 [facility] Comment on above: Performed By: #### E RUR #### [facility] [address] [place] [address] Dr. Helio Cee Lymphocytes/100 WBC (Bld) 11.9 % Critically low 20.5-60.0 [facility] Comment on above: Performed By: #### E RUR #### [facility] [address] [place] [address] Dr. Helio Cee MANUAL DIFF REQ NO Normal [facility] Comment on above: Performed By: #### E RUR #### [facility] [address] [place] [address] Dr. Helio Cee MCH (RBC) [Entitic mass] 29.0 pg Normal 26.7-34.0 [facility] Comment on above: Performed By: #### E RUR #### [facility] [address] [place] [address] Dr. Helio Cee MCHC (RBC) [Mass/Vol] 31.5 g/dL Normal 29.9-35.2 [facility] Comment on above: Performed By: #### E RUR #### [facility] [address] [place] [address] Dr. Helio Cee MCV (RBC) [Entitic vol] 92.1 fL Normal 81.0-99.0 [facility] Comment on above: Performed By: #### E RUR #### [facility] [address] [place] [address] Dr. Helio Cee MONO # 0.4 103/ul Normal 0.3-0.8 [facility] Comment on above: Performed By: #### E RUR #### [facility] [address] [place] [address] Dr. Helio Cee Monocytes/100 WBC (Bld) 4.4 % Normal 1.7-12.0 [facility] Comment on above: Performed By: #### E RUR #### [facility] [address] [place] [address] Dr. Helio Cee NEUT # 7.3 103/ul Critically high 1.4-6.5 [facility] Comment on above: Performed By: #### E RUR #### [facility] [address] [place] [address] Dr. Helio Cee Neutrophils/100 WBC (Bld) 78.9 % Critically high 43.0-75.0 [facility] Comment on above: Performed By: #### E RUR #### [facility] [address] [place] [address] Dr. Helio Cee Platelet mean volume (Bld) [Entitic vol] 10.6 fL Normal 9.5-13.5 [facility] Comment on above: Performed By: #### E RUR #### [facility] [address] [place] [address] Dr. Helio Cee PLT 269 103/ul Normal 150-450 [facility] Comment on above: Performed By: #### E RUR #### [facility] [address] [place] [address] Dr. Helio Cee RBC 4.45 106/ul Normal 4.20-5.40 [facility] Comment on above: Performed By: #### E RUR #### [facility] [address] [address] [address] Helio Cee WBC 9.2 103/ul Normal 4.0-11.0 [facility] Comment on above: Performed By: #### E RUR #### [facility] [address] [address] [address] Helio Cee LIPID PROFILEon 04-21-2022 CHOL-HDL RATIO NORM SEE BELOW Normal [facility] Comment on above: Result Comment: 3.3 - 4.4 LOW RISK 4.4 - 7.1 AVERAGE RISK 7.1 - 11.0 MODERATE RISK >11.0 HIGH RISK Performed By: #### T SH, LIPID, CMP ####[facility] [id number][address] Helio Cee Cholesterol [Mass/Vol] 146 mg/dL Normal <=200 [facility] Comment on above: Performed By: #### T CAITLIN, LIPID, CMP ####[facility] [address]Dr[address] Helio Cee Cholesterol in HDL [Mass/Vol] 63 mg/dL Critically high 40-60 [facility] Comment on above: Performed By: #### T CAITLIN, LIPID, CMP ####[facility] [address]Dr. Helio Cee Cholesterol in LDL [Mass/Vol] 66.6 mg/dL Normal [facility] Comment on above: Performed By: #### T SH, LIPID, CMP ####[facility] [address]Dr. Helio Cee Cholesterol.total/Lisa sterol in HDL [Mass ratio] 2.3 {ratio} Normal [facility] Comment on above: Performed By: #### T SH, LIPID, CMP ####[facility] [id number]. Helio Cee HDL NORMAL > or = 60 mg/dl - LOW CARDIOVASCULAR RISK <40 mg/dl - HIGH CARDIOVASCULAR RISK Normal [facility] Comment on above: Performed By: #### T CAITLIN, LIPID, CMP ####[facility] [address] [address]Dr. Helio Cee LDL CALC NORMAL SEE BELOW Normal [facility] Comment on above: Result Comment: <100 mg/dl OPTIMAL 100 - 129 mg/dl NEAR OR ABOVE OPTIMAL 130 - 159 mg/dl BORDERLINE HIGH 160 - 189 mg/dl HIGH >190 mg/dl VERY HIGH Performed By: #### T CAITLIN, LIPID, CMP ####[facility] [address] [address]Dr. Helio Cee Triglyceride [Mass/Vol] 82 mg/dL Normal <=150 [facility] Comment on above: Performed By: #### T CAITILN, LIPID, CMP ####[facility] [address] [address]Dr. Helio Cee VLDL CALC 16.4 mg/dL Normal [facility] Comment on above: Performed By: #### T CAITLIN, LIPID, CMP ####[facility] [address] [address]Dr. Helio Cee PROF 14(COMP METB)on 022 Albumin [Mass/Vol] 3.5 g/dL Normal 3.4-5.0 [facility] Comment on above: Performed By: #### T CAITLIN, LIPID, CMP ####[facility] [address] [address]Dr. Helio Cee Albumin/Globulin [Mass ratio] 1.0 {ratio} Normal [facility] Comment on above: Performed By: #### T CAITLIN, LIPID, CMP ####[facility] [address] [address]Dr. Helio Cee ALP [Catalytic activity/Vol] 98 U/L Normal 46-116 [facility] Comment on above: Performed By: #### T CAITLIN, LIPID, CMP ####[facility] [address] [place] [address]Dr. Helio Cee ALT [Catalytic activity/Vol] 23 U/L Normal 14-59 [facility] Comment on above: Performed By: #### T CAITLIN, LIPID, CMP ####[facility] [id number]. Helio Cee Anion gap [Moles/Vol] 12.2 mmol/L Normal Th [facility] Comment on above: Performed By: #### T SH, LIPID, CMP ####[facility] [address] [id number]. Helio Cee AST [Catalytic activity/Vol] 15 U/L Normal 15-37 [facility] Comment on above: Performed By: #### T SH, LIPID, CMP ####[facility] [address] [place] [address]Dr. Helio Cee Bilirubin [Mass/Vol] 0.5 mg/dL Normal 0.2-1.0 [facility] Comment on above: Performed By: #### T SH, LIPID, CMP ####[facility] [address] [place] [address]Dr. Helio Cee Calcium [Mass/Vol] 9.0 mg/dL Normal 8.5-10.1 [facility] Comment on above: Performed By: #### T SH, LIPID, CMP ####[facility] [address] [place], [place] [address]Dr. Helio Cee Chloride [Moles/Vol] 109 mmol/L Critically high 98-107 [facility] Comment on above: Performed By: #### T SH, LIPID, CMP ####[facility] [address] [place] [address]Dr. Helio Cee CO2 [Moles/Vol] 26.5 mmol/L Normal 21.0-32.0 [facility] Comment on above: Performed By: #### T SH, LIPID, CMP ####[facility] [address] [place] [address]Dr. Helio Cee Creatinine [Mass/Vol] 1.22 mg/dL Critically high 0.55-1.02 [facility] Comment on above: Performed By: #### T SH, LIPID, CMP ####[facility] [address] [place] [address]Dr. Helio Cee EGFR-AF AZERBAIJANI 52 mL/min/1.73m2 Critically low >=60 [facility] Comment on above: Performed By: #### T SH, LIPID, CMP ####[facility] [address] [place] [address]Dr. Helio Cee EGFR-NON AF AZERBAIJANI 43 mL/min/1.73m2 Critically low >=60 [facility] Comment on above: Performed By: #### T SH, LIPID, CMP ####[facility] [address] [place], [place] [address]Dr. Helio Cee Globulin (S) [Mass/Vol] 3.4 g/dL Normal T [facility] Comment on above: Performed By: #### T CAITLIN, LIPID, CMP ####[facility] [address] [place], [place] [address]Dr. Helio Cee Glucose [Mass/Vol] 103 mg/dL Normal 74-106 [facility] Comment on above: Performed By: #### T CAITLIN, LIPID, CMP ####[facility] [address] [place], [place] [address]Dr. Helio Cee Potassium [Moles/Vol] 4.7 mmol/L Normal 3.5-5.1 [facility] Comment on above: Performed By: #### T CAITLIN, LIPID, CMP ####[facility] [address] [place], [place] [address]Dr. Helio Cee Protein [Mass/Vol] 6.9 g/dL Normal 6.4-8.2 [facility] Comment on above: Performed By: #### T SH, LIPID, CMP ####[facility] [address] [place], [place] [address]Dr. Helio Cee Sodium [Moles/Vol] 143 mmol/L Normal 136-145 [facility] Comment on above: Performed By: #### T CAITLIN, LIPID, CMP ####[facility] [address] [place], [place] [address]Dr. Helio Cee Urea nitrogen [Mass/Vol] 22.0 mg/dL Critically high 7.0-18.0 [facility] Comment on above: Performed By: #### T SH, LIPID, CMP ####[facility] [address] [place] [address]Dr. Helio Cee Urea nitrogen/Creatinine [Mass ratio] 18.0 mg/mg Normal [facility] Comment on above: Performed By: #### T SH, LIPID, CMP ####[facility] [address] [place] [address]Dr. Helio Cee TSHon 04-21-2022 TSH 0.592 uIU/mL Normal 0.358-3.[address] [facility] Comment on above: Performed By: #### T SH, LIPID, CMP ####[facility] [address] [place], [place] [address]Dr. Helio Cee UA RANDOM W/MICROSCOPICon BACTERIA NONE SEEN Normal NONE SEEN [facility] Comment on above: Performed By: #### U AMIC ####[facility] [address] [place], [place] [address]Dr. Helio Cee Bilirubin Ql (U) Negative Normal NEGATIVE [facility] Comment on above: Performed By: #### U AMIC ####[facility] [address] [place], [place] [address]Dr. Heilo Cee CAST NONE SEEN Normal NONE SEEN [facility] Comment on above: Performed By: #### U AMIC ####[facility] [address] [place] [address]Dr. Helio Cee Clarity (U) CLEAR Normal CLEAR [facility] Comment on above: Performed By: #### U AMIC ####[facility] Sn[address] [place], [place] [address]Dr. Helio Cee Color (U) DK. YELLOW Normal YELLOW [facility] Comment on above: Performed By: #### U AMIC ####[facility] [address] [place], [place] [address]Dr. Helio Cee Crystals LM Nom (Urine sed) NONE SEEN Normal NONE SEEN [facility] Comment on above: Performed By: #### U AMIC ####[facility] [address] [place], [place] [address]Dr. Helio Cee Epithelial cells LM Ql (Urine sed) RARE Normal NONE SEEN /RARE [facility] Comment on above: Performed By: #### U AMIC ####[facility] [address] [place] [address]Dr. Claudettemagan Cee Glucose Ql (U) Negative Normal NEGATIVE The [facility] Comment on above: Performed By: #### U AMIC ####[facility] [address] [place] [address]Dr. Helio Cee Hemoglobin Ql (U) Negative Normal NEGATIVE The [facility] Comment on above: Performed By: #### U AMIC ####[facility] [address] [place] [address]Dr. Helio Cee Ketones Ql (U) Negative Normal NEGATIVE The [facility] Comment on above: Performed By: #### U AMIC ####[facility] Zh[address] [place], [place] [address]Dr. Helio Cee LEUKOCYTES Negative Normal NEGATIVE [facility] Comment on above: Performed By: #### U AMIC ####[facility] [address] [place], [place] [address]Dr. Helio Cee MUCOUS TRACE Abnormal NONE SEEN [facility] Comment on above: Performed By: #### U AMIC ####[facility] In[address] [place], [place] [address]Dr. Claudettemagan Coleman Nitrite Ql (U) Negative Normal NEGATIVE The [facility] Comment on above: Performed By: #### U AMIC ####[facility] [address] [place], [place] [address]Dr. Helio Cee pH (U) 5.5 [pH] Normal 5-9 [facility] Comment on above: Performed By: #### U AMIC ####[facility] [address] [place], [place] [address]Dr. Helio Cee RBC 0-2 Normal 0-2 [facility] Comment on above: Performed By: #### U AMIC ####[facility] [address] [place] [address]Dr. Helio Cee SPEC GRAVITY >=1.030 Abnormal 1.005-<=1.02 5 [facility] Comment on above: Performed By: #### U AMIC ####[facility] [address] [place], [place] [address]Dm. Helio Cee UA PROTEIN TRACE Normal NEGATIVE/ TRACE [facility] Comment on above: Performed By: #### U AMIC ####[facility] [address] [place], [place] [address]Ov. Helio Cee Urobilinogen Qn (U) 1.0 {Nevaeh'U}/dL Normal 0.2 - 1. 0 [facility] Comment on above: Performed By: #### U AMIC ####[facility] [address] [place], [place] [address]Ir. Helio Cee WBC NONE SEEN Normal NONE SEEN [facility] Comment on above: Performed By: #### U AMIC ####[facility] [address] [place], [place] [address]Gi. Helio Cee [address] CHEST WO CONon 02-22-2022 [...] EHSAN MILLER Date: 2022-02-22 16:51 Normal [facility] HEMOGLOBINon 02-22-2022 Hemoglobin (Bld) [Mass/Vol] 13.6 g/dL Normal 12.0-16.0 [facility] Comment on above: Performed By: #### V [id number] #### [facility] [address] [place] [address] Dr. Helio Cee XR TIB_FIB RT 2Von [...] LONG Date: 2022-01-07 21:52 Normal [facility] BNPon 11-22-2021 Natriuretic peptide B (Bld) [Mass/Vol] 1469.0 pg/mL Critically high <=900.0 [facility] Comment on above: Performed By: #### C VDTBH #### [facility] [address] [place] [address] Dr. Helio Cee CBC AUTO DIFFon 11-22-2021 BASO # 0.1 103/ul Normal 0.0-0.1 [facility] Comment on above: Performed By: #### E RUR #### [facility] [address] [place] [address] Dr. Helio Cee Basophils/100 WBC (Bld) 0.7 % Normal 0.2-2.0 [facility] Comment on above: Performed By: #### E RUR #### [facility] [address] [place] [address] Dr. Helio Cee EO # 0.2 103/ul Normal 0.0-0.7 [facility] Comment on above: Performed By: #### E RUR #### [facility] [address] [place] [address] Dr. Helio Cee Eosinophils/100 WBC (Bld) 1.9 % Normal 0.9-7.0 [facility] Comment on above: Performed By: #### E RUR #### [facility] [address] [place] [address] Dr. Helio Cee Erythrocyte distribution width (RBC) [Ratio] 14.3 % Normal 11.0-15.0 [facility] Comment on above: Performed By: #### E RUR #### [facility] [address] [place] [address] Dr. Helio Cee Hematocrit (Bld) [Volume fraction] 37.9 % Normal 36.0-48.0 [facility] Comment on above: Performed By: #### E RUR #### [facility] [address] [place] [address] Dr. Helio Cee Hemoglobin (Bld) [Mass/Vol] 12.0 g/dL Normal 12.0-16.0 [facility] Comment on above: Performed By: #### E RUR #### [facility] [address] [place] [address] Dr. Helio Cee IG # 0.10 10e3/ul Critically high 0.00-0.03 [facility] Comment on above: Performed By: #### E RUR #### [facility] [address] [place] [address] Dr. Helio Cee IG % 1.1 % Critically high 0.0-0.5 [facility] Comment on above: Performed By: #### E RUR #### [facility] [address] [place] [address] Dr. Helio Cee LYMPH # 0.9 103/ul Critically low 1.2-3.8 [facility] Comment on above: Performed By: #### E RUR #### [facility] [address] [place] [address] Dr. Helio Cee Lymphocytes/100 WBC (Bld) 10.1 % Critically low 20.5-60.0 [facility] Comment on above: Performed By: #### E RUR #### [facility] [address] [place] [address] Dr. Helio Cee MANUAL DIFF REQ NO Normal [facility] Comment on above: Performed By: #### E RUR #### [facility] [address] [place] [address] Dr. Helio Cee MCH (RBC) [Entitic mass] 29.8 pg Normal 26.7-34.0 [facility] Comment on above: Performed By: #### E RUR #### [facility] [address] [place] [address] Dr. Helio Cee MCHC (RBC) [Mass/Vol] 31.7 g/dL Normal 29.9-35.2 [facility] Comment on above: Performed By: #### E RUR #### [facility] [address] [place] [address] Dr. Helio Cee MCV (RBC) [Entitic vol] 94.0 fL Normal 81.0-99.0 [facility] Comment on above: Performed By: #### E RUR #### [facility] [address] [place] [address] Dr. Helio Cee MONO # 0.7 103/ul Normal 0.3-0.8 [facility] Comment on above: Performed By: #### E RUR #### [facility] [address] [place] [address] Dr. Helio eCe Monocytes/100 WBC (Bld) 7.8 % Normal 1.7-12.0 [facility] Comment on above: Performed By: #### E RUR #### [facility] [address] [place] [address] Dr. Helio Cee NEUT # 7.2 103/ul Critically high 1.4-6.5 [facility] Comment on above: Performed By: #### E RUR #### [facility] [address] [place] [address] Dr. Helio Cee Neutrophils/100 WBC (Bld) 78.4 % Critically high 43.0-75.0 [facility] Comment on above: Performed By: #### E RUR #### [facility] [address] [place] [address] Dr. Helio Cee Platelet mean volume (Bld) [Entitic vol] 10.6 fL Normal 9.5-13.5 [facility] Comment on above: Performed By: #### E RUR #### [facility] [address] [address] [address] Helio Cee PLT 278 103/ul Normal 150-450 [facility] Comment on above: Performed By: #### E RUR #### [facility] [address] [address] [address] Helio Cee RBC 4.03 106/ul Critically low 4.20-5.40 [facility] Comment on above: Performed By: #### E RUR #### [facility] [address] [address] [address] Helio Cee WBC 9.1 103/ul Normal 4.0-11.0 [facility] Comment on above: Performed By: #### E RUR #### [facility] [address] [address] [address] Helio Cee CTA CHEST WO W [...] BARAHONA Date: 2021-11-22 16:47 Normal [facility] CULTURE BLOODon 11-22-2021 Microscopic examination of blood, culture Culture Observations: NO GROWTH AT 5 DAYS. Normal [facility] Comment on above: Performed By: #### B [id number] ####[facility] [address] [place], [place] [address]EdDr. Helio Cee Microscopic examination of blood, culture Culture Observations: NO GROWTH AT 5 DAYS. Normal [facility] Comment on above: Performed By: #### B [id number] #### [facility] [address] [place], [place] [address] Dr. Helio Cee Covid-19 PCR ([facility])on 11-11 SARS-CoV-2 (COVID-19) RNA KIMMY+probe Ql (Unsp spec) Not detected Normal NOT DETECTED [facility] Comment on above: Result Comment: When [...] for this test is supported by the Highway Engineer of Health and Human Service's declaration that [...] used). Performed By: #### C VDTB #### [facility] [address] [address] [address] Helio Cee LACTATE/LACTIC ACIDon 2021 Lactate [Moles/Vol] mmol/L Critically low 0.4-1.9 [facility] Comment on above: Performed By: #### L ACT ####[facility] [address] [place] [address]Dr. Helio Cee PROF 14(COMP METB)on 022 Albumin [Mass/Vol] 3.1 g/dL Critically low 3.4-5.0 [facility] Comment on above: Performed By: #### V [id number] #### [facility] [address] [place] [address] Dr. Helio Cee Albumin/Globulin [Mass ratio] 0.8 {ratio} Normal [facility] Comment on above: Performed By: #### V [id number] #### [facility] [address] [place] [address] Dr. Helio Cee ALP [Catalytic activity/Vol] 92 U/L Normal 46-116 [facility] Comment on above: Performed By: #### V [id number] #### [facility] [address] [place] [address] Dr. Helio Cee ALT [Catalytic activity/Vol] 23 U/L Normal 14-59 [facility] Comment on above: Performed By: #### V [id number] #### [facility] [address] [place] [address] Dr. Helio Cee Anion gap [Moles/Vol] 12.8 mmol/L Normal [facility] Comment on above: Performed By: #### V [id number] #### [facility] [address] [place] [address] Dr. Helio Cee AST [Catalytic activity/Vol] 16 U/L Normal 15-37 [facility] Comment on above: Performed By: #### V [id number] #### [facility] [address] [address] [address] Helio Cee Bilirubin [Mass/Vol] 0.6 mg/dL Normal 0.2-1.0 [facility] Comment on above: Performed By: #### V [id number] #### [facility] [address] [address] [address] Helio Cee Calcium [Mass/Vol] 9.5 mg/dL Normal 8.5-10.1 [facility] Comment on above: Performed By: #### V [id number] #### [facility] [address] [place] [address] Dr. Helio Cee Chloride [Moles/Vol] 106 mmol/L Normal 98-107 [facility] Comment on above: Performed By: #### V [id number] #### [facility] [address] [place] [address] Dr. Helio Cee CO2 [Moles/Vol] 25.1 mmol/L Normal 21.0-32.0 [facility] Comment on above: Performed By: #### V [id number] #### [facility] [address] [place] [address] Dr. Helio Cee Creatinine [Mass/Vol] 1.06 mg/dL Critically high 0.55-1.02 [facility] Comment on above: Performed By: #### V [id number] #### [facility] [address] [place] [address] Dr. Helio Cee EGFR-AF AZERBAIJANI >60 Normal >=60 [facility] Comment on above: Performed By: #### V [id number] #### [facility] [address] [place] [address] Dr. Helio Cee EGFR-NON AF AZERBAIJANI 51 mL/min/1.73m2 Critically low >=60 [facility] Comment on above: Performed By: #### V [id number] #### [facility] [address] [place] [address] Dr. Helio Cee Globulin (S) [Mass/Vol] 4.1 g/dL Normal [facility] Comment on above: Performed By: #### V [id number] #### [facility] [address] [place] [address] Dr. Helio Cee Glucose [Mass/Vol] 99 mg/dL Normal 74-106 [facility] Comment on above: Performed By: #### V [id number] #### [facility] [address] [place] [address] Dr. Helio Cee Potassium [Moles/Vol] 3.9 mmol/L Normal 3.5-5.1 [facility] Comment on above: Performed By: #### V [id number] #### [facility] [address] [place] [address] Dr. Helio Cee Protein [Mass/Vol] 7.2 g/dL Normal 6.4-8.2 [facility] Comment on above: Performed By: #### V [id number] #### [facility] [address] [place] [address] Dr. Helio Cee Sodium [Moles/Vol] 140 mmol/L Normal 136-145 [facility] Comment on above: Performed By: #### V [id number] #### [facility] [address] [place] [address] Dr. Helio Cee Urea nitrogen [Mass/Vol] 15.0 mg/dL Normal 7.0-18.0 [facility] Comment on above: Performed By: #### V [id number] #### [facility] [address] [place] [address] Dr. Helio Cee Urea nitrogen/Creatinine [Mass ratio] 14.2 mg/mg Normal [facility] Comment on above: Performed By: #### V [id number] #### [facility] [address] [place] [address] Dr. Helio Cee TROPONIN, HIGH SENSITIVITYon 11-22-2021 HSTROP 11.6 pg/mL Normal 4.0-51.3 [facility] Comment on above: Result Comment: CUT- OFF POINTS HAVE BEEN ESTABLISHED BASED ON THE FOURTH UNIVERSAL DEFINITIONS OF MYOCARDIAL INFARCTION. THE UPPER REFERENCE LIMIT (URL) OF TROPONIN, DEFINED THE 99TH PERCENTILE OF cTnI DISTRIBUTION IN A REFERENCE POPULATION, HAS BEEN CONFIRMED THE DECISION THRESHOLD FOR PR DIAGNOSIS. Performed By: #### V [id number] #### [facility] [address] [place] [address] Dr. Helio Cee XR CHEST 2 Von [...] by: ISAC CONNOR Date: 2021-11-22 14:20 Normal [facility] BNPon 11-21-2021 Natriuretic peptide B (Bld) [Mass/Vol] 953.0 pg/mL Critically high <=900.0 [facility] Comment on above: Performed By: #### E RUR #### [facility] [address] [place] [address] Dr. Helio Cee CBC AUTO DIFFon 11-21-2021 BASO # 0.0 103/ul Normal 0.0-0.1 [facility] Comment on above: Performed By: #### E RUR #### [facility] [address] [place] [address] Dr. Helio Cee Basophils/100 WBC (Bld) 0.4 % Normal 0.2-2.0 [facility] Comment on above: Performed By: #### E RUR #### [facility] [address] [place] [address] Dr. Helio Cee EO # 0.1 103/ul Normal 0.0-0.7 [facility] Comment on above: Performed By: #### E RUR #### [facility] [address] [place] [address] Dr. Helio Cee Eosinophils/100 WBC (Bld) 1.1 % Normal 0.9-7.0 [facility] Comment on above: Performed By: #### E RUR #### [facility] [address] [place] [address] Dr. Helio Cee Erythrocyte distribution width (RBC) [Ratio] 14.6 % Normal 11.0-15.0 [facility] Comment on above: Performed By: #### E RUR #### [facility] [address] [place] [address] Dr. Helio Cee Hematocrit (Bld) [Volume fraction] 35.2 % Critically low 36.0-48.0 [facility] Comment on above: Performed By: #### E RUR #### [facility] [address] [place] [address] Dr. Helio Cee Hemoglobin (Bld) [Mass/Vol] 10.9 g/dL Critically low 12.0-16.0 [facility] Comment on above: Performed By: #### E RUR #### [facility] [address] [place] [address] Dr. Helio Cee IG # 0.07 10e3/ul Critically high 0.00-0.03 [facility] Comment on above: Performed By: #### E RUR #### [facility] [address] [place] [address] Dr. Helio Cee IG % 0.7 % Critically high 0.0-0.5 [facility] Comment on above: Performed By: #### E RUR #### [facility] [address] [place] [address] Dr. Helio Cee LYMPH # 1.4 103/ul Normal 1.2-3.8 [facility] Comment on above: Performed By: #### E RUR #### [facility] [address] [place] [address] Dr. Helio Cee Lymphocytes/100 WBC (Bld) 13.3 % Critically low 20.5-60.0 [facility] Comment on above: Performed By: #### E RUR #### [facility] [address] [place] [address] Dr. Helio Cee MANUAL DIFF REQ NO Normal [facility] Comment on above: Performed By: #### E RUR #### [facility] [address] [place] [address] Dr. Helio Cee MCH (RBC) [Entitic mass] 29.5 pg Normal 26.7-34.0 [facility] Comment on above: Performed By: #### E RUR #### [facility] [address] [place] [address] Dr. Helio Cee MCHC (RBC) [Mass/Vol] 31.0 g/dL Normal 29.9-35.2 [facility] Comment on above: Performed By: #### E RUR #### [facility] [address] [place] [address] Dr. Helio Cee MCV (RBC) [Entitic vol] 95.4 fL Normal 81.0-99.0 [facility] Comment on above: Performed By: #### E RUR #### [facility] [address] [place] [address] Dr. Helio Cee MONO # 0.8 103/ul Normal 0.3-0.8 [facility] Comment on above: Performed By: #### E RUR #### [facility] [address] [place] [address] Dr. Helio Cee Monocytes/100 WBC (Bld) 7.3 % Normal 1.7-12.0 [facility] Comment on above: Performed By: #### E RUR #### [facility] [address] [place] [address] Dr. Helio Cee NEUT # 7.9 103/ul Critically high 1.4-6.5 [facility] Comment on above: Performed By: #### E RUR #### [facility] [address] [place] [address] Dr. Helio Cee Neutrophils/100 WBC (Bld) 77.2 % Critically high 43.0-75.0 [facility] Comment on above: Performed By: #### E RUR #### [facility] [address] [place] [address] Dr. Helio Cee Platelet mean volume (Bld) [Entitic vol] 11.1 fL Normal 9.5-13.5 [facility] Comment on above: Performed By: #### E RUR #### [facility] [address] [place] [address] Dr. Helio Cee PLT 245 103/ul Normal 150-450 [facility] Comment on above: Performed By: #### E RUR #### [facility] [address] [place] [address] Dr. Helio Cee RBC 3.69 106/ul Critically low 4.20-5.40 [facility] Comment on above: Performed By: #### E RUR #### [facility] [address] [place] [address] Dr. Helio Cee WBC 10.2 103/ul Normal 4.0-11.0 [facility] Comment on above: Performed By: #### E RUR #### [facility] [address] [place] [address] Dr. Helio Cee PROF 14(COMP METB)on 022 Albumin [Mass/Vol] 2.6 g/dL Critically low 3.4-5.0 [facility] Comment on above: Performed By: #### V [id number] #### [facility] [address] [place] [address] Dr. Helio Cee Albumin/Globulin [Mass ratio] 0.7 {ratio} Normal [facility] Comment on above: Performed By: #### V [id number] #### [facility] [address] [place] [address] Dr. Helio Cee ALP [Catalytic activity/Vol] 75 U/L Normal 46-116 [facility] Comment on above: Performed By: #### V [id number] #### [facility] [address] [place] [address] Dr. Helio Cee ALT [Catalytic activity/Vol] 19 U/L Normal 14-59 [facility] Comment on above: Performed By: #### V [id number] #### [facility] [address] [place] [address] Dr. Helio Cee Anion gap [Moles/Vol] 11.7 mmol/L Normal Th [facility] Comment on above: Performed By: #### V [id number] #### [facility] [address] [address] [address] Helio Cee AST [Catalytic activity/Vol] 8 U/L Critically low 15-37 [facility] Comment on above: Performed By: #### V [id number] #### [facility] [address] [address] [address] Helio Cee Bilirubin [Mass/Vol] 0.3 mg/dL Normal 0.2-1.0 [facility] Comment on above: Performed By: #### V [id number] #### [facility] [address] [address] [address] Helio Cee Calcium [Mass/Vol] 9.0 mg/dL Normal 8.5-10.1 [facility] Comment on above: Performed By: #### V [id number] #### [facility] [address] [address] [address] Helio Cee Chloride [Moles/Vol] 107 mmol/L Normal 98-107 [facility] Comment on above: Performed By: #### V [id number] #### [facility] [address] [place] [address] Dr. Helio Cee CO2 [Moles/Vol] 24.7 mmol/L Normal 21.0-32.0 [facility] Comment on above: Performed By: #### V [id number] #### [facility] [address] [address] [address] Helio Cee Creatinine [Mass/Vol] 0.91 mg/dL Normal 0.55-1.02 [facility] Comment on above: Performed By: #### V [id number] #### [facility] [address] [address] [address] Helio Cee EGFR-AF AZERBAIJANI >60 Normal >=60 [facility] Comment on above: Performed By: #### V [id number] #### [facility] [address] [place] [address] Dr. Helio Cee EGFR-NON AF AZERBAIJANI 60 mL/min/1.73m2 Normal >=60 [facility] Comment on above: Performed By: #### V [id number] #### [facility] [address] [address] [address] Helio Cee Globulin (S) [Mass/Vol] 3.9 g/dL Normal [facility] Comment on above: Performed By: #### V [id number] #### [facility] [address] [address] [address] Helio Cee Glucose [Mass/Vol] 131 mg/dL Critically high 74-106 [facility] Comment on above: Performed By: #### V [id number] #### [facility] [address] [address] [address] Helio Cee Potassium [Moles/Vol] 3.4 mmol/L Critically low 3.5-5.1 [facility] Comment on above: Performed By: #### V [id number] #### [facility] [address] [place] [address] Dr. Helio Cee Protein [Mass/Vol] 6.5 g/dL Normal 6.4-8.2 [facility] Comment on above: Performed By: #### V [id number] #### [facility] [address] [address] [address] Helio Cee Sodium [Moles/Vol] 140 mmol/L Normal 136-145 [facility] Comment on above: Performed By: #### V [id number] #### [facility] [address] [address] [address] Helio Cee Urea nitrogen [Mass/Vol] 14.0 mg/dL Normal 7.0-18.0 [facility] Comment on above: Performed By: #### V [id number] #### [facility] [address] [address] [address] Helio Cee Urea nitrogen/Creatinine [Mass ratio] 15.4 mg/mg Normal [facility] Comment on above: Performed By: #### V [id number] #### [facility] [address] [place] [address] Dr. Helio Cee BNPon 11-20-2021 Natriuretic peptide B (Bld) [Mass/Vol] 781.0 pg/mL Normal <=900.0 [facility] Comment on above: Performed By: #### E RUR #### [facility] [address] [place] [address] Dr. Helio Cee CBC AUTO DIFFon 11-20-2021 BASO # 0.0 103/ul Normal 0.0-0.1 [facility] Comment on above: Performed By: #### V [id number] #### [facility] [address] [place] [address] Dr. Helio Cee Basophils/100 WBC (Bld) 0.3 % Normal 0.2-2.0 [facility] Comment on above: Performed By: #### V [id number] #### [facility] [address] [place] [address] Dr. Helio Cee EO # 0.1 103/ul Normal 0.0-0.7 [facility] Comment on above: Performed By: #### V [id number] #### [facility] [address] [place] [address] Dr. Helio Cee Eosinophils/100 WBC (Bld) 0.5 % Critically low 0.9-7.0 [facility] Comment on above: Performed By: #### V [id number] #### [facility] [address] [place] [address] Dr. Helio Cee Erythrocyte distribution width (RBC) [Ratio] 14.5 % Normal 11.0-15.0 [facility] Comment on above: Performed By: #### V [id number] #### [facility] [address] [place] [address] Dr. Helio Cee Hematocrit (Bld) [Volume fraction] 36.6 % Normal 36.0-48.0 [facility] Comment on above: Performed By: #### V [id number] #### [facility] [address] [place] [address] Dr. Helio Cee Hemoglobin (Bld) [Mass/Vol] 11.5 g/dL Critically low 12.0-16.0 [facility] Comment on above: Performed By: #### V [id number] #### [facility] [address] [address] [address] Helio Cee IG # 0.07 10e3/ul Critically high 0.00-0.03 [facility] Comment on above: Performed By: #### V [id number] #### [facility] [address] [place] [address] Dr. Helio Cee IG % 0.5 % Normal 0.0-0.5 [facility] Comment on above: Performed By: #### V [id number] #### [facility] [address] [place] [address] Dr. Helio Cee LYMPH # 1.2 103/ul Normal 1.2-3.8 [facility] Comment on above: Performed By: #### V [id number] #### [facility] [address] [place] [address] Dr. Helio Cee Lymphocytes/100 WBC (Bld) 9.5 % Critically low 20.5-60.0 [facility] Comment on above: Performed By: #### V [id number] #### [facility] [address] [place] [address] Dr. Helio Cee MANUAL DIFF REQ NO Normal [facility] Comment on above: Performed By: #### V [id number] #### [facility] [address] [place] [address] Dr. Helio Cee MCH (RBC) [Entitic mass] 30.2 pg Normal 26.7-34.0 [facility] Comment on above: Performed By: #### V [id number] #### [facility] [address] [place] [address] Dr. Helio Cee MCHC (RBC) [Mass/Vol] 31.4 g/dL Normal 29.9-35.2 [facility] Comment on above: Performed By: #### V [id number] #### [facility] [address] [place] [address] Dr. Helio Cee MCV (RBC) [Entitic vol] 96.1 fL Normal 81.0-99.0 [facility] Comment on above: Performed By: #### V [id number] #### [facility] [address] [address] [address] Helio Cee MONO # 0.7 103/ul Normal 0.3-0.8 [facility] Comment on above: Performed By: #### V [id number] #### [facility] [address] [place] [address] Dr. Helio Cee Monocytes/100 WBC (Bld) 5.7 % Normal 1.7-12.0 [facility] Comment on above: Performed By: #### V [id number] #### [facility] [address] [place] [address] Dr. Helio Cee NEUT # 10.8 103/ul Critically high 1.4-6.5 [facility] Comment on above: Performed By: #### V [id number] #### [facility] [address] [place] [address] Dr. Helio Cee Neutrophils/100 WBC (Bld) 83.5 % Critically high 43.0-75.0 [facility] Comment on above: Performed By: #### V [id number] #### [facility] [address] [place] [address] Dr. Helio Cee Platelet mean volume (Bld) [Entitic vol] 11.1 fL Normal 9.5-13.5 [facility] Comment on above: Performed By: #### V [id number] #### [facility] [address] [place] [address] Dr. Helio Cee PLT 231 103/ul Normal 150-450 [facility] Comment on above: Performed By: #### V [id number] #### [facility] [address] [place] [address] Dr. Helio Cee RBC 3.81 106/ul Critically low 4.20-5.40 [facility] Comment on above: Performed By: #### V [id number] #### [facility] [address] [place] [address] Dr. Helio Cee WBC 13.0 103/ul Critically high 4.0-11.0 [facility] Comment on above: Performed By: #### V [id number] #### [facility] [address] [place] [address] Dr. Helio Cee PROF 14(COMP METB)on 022 Albumin [Mass/Vol] 2.9 g/dL Critically low 3.4-5.0 [facility] Comment on above: Performed By: #### E RUR #### [facility] [address] [place] [address] Dr. Helio Cee Albumin/Globulin [Mass ratio] 0.8 {ratio} Normal [facility] Comment on above: Performed By: #### E RUR #### [facility] [address] [place] [address] Dr. Helio Cee ALP [Catalytic activity/Vol] 81 U/L Normal 46-116 [facility] Comment on above: Performed By: #### E RUR #### [facility] [address] [place] [address] Dr. Helio Cee ALT [Catalytic activity/Vol] 21 U/L Normal 14-59 [facility] Comment on above: Performed By: #### E RUR #### [facility] [address] [place] [address] Dr. Helio Cee Anion gap [Moles/Vol] 12.4 mmol/L Normal [facility] Comment on above: Performed By: #### E RUR #### [facility] [address] [place] [address] Dr. Helio Cee AST [Catalytic activity/Vol] 11 U/L Critically low 15-37 [facility] Comment on above: Performed By: #### E RUR #### [facility] [address] [place] [address] Dr. Helio Cee Bilirubin [Mass/Vol] 0.4 mg/dL Normal 0.2-1.0 [facility] Comment on above: Performed By: #### E RUR #### [facility] [address] [place] [address] Dr. Helio Cee Calcium [Mass/Vol] 8.7 mg/dL Normal 8.5-10.1 [facility] Comment on above: Performed By: #### E RUR #### [facility] [address] [place] [address] Dr. Helio Cee Chloride [Moles/Vol] 108 mmol/L Critically high 98-107 [facility] Comment on above: Performed By: #### E RUR #### [facility] [address] [address] [address] Helio Cee CO2 [Moles/Vol] 24.2 mmol/L Normal 21.0-32.0 [facility] Comment on above: Performed By: #### E RUR #### [facility] [address] [address] [address] Helio Cee Creatinine [Mass/Vol] 1.03 mg/dL Critically high 0.55-1.02 [facility] Comment on above: Performed By: #### E RUR #### [facility] [address] [place] [address] Dr. Helio Cee EGFR-AF AZERBAIJANI >60 Normal >=60 [facility] Comment on above: Performed By: #### E RUR #### [facility] [address] [address] [address] Helio Cee EGFR-NON AF AZERBAIJANI 52 mL/min/1.73m2 Critically low >=60 [facility] Comment on above: Performed By: #### E RUR #### [facility] [address] [place] [address] Dr. Helio Cee Globulin (S) [Mass/Vol] 3.5 g/dL Normal [facility] Comment on above: Performed By: #### E RUR #### [facility] [address] [address] [address] Helio Cee Glucose [Mass/Vol] 142 mg/dL Critically high 74-106 [facility] Comment on above: Performed By: #### E RUR #### [facility] [address] [address] [address] Helio Cee Potassium [Moles/Vol] 3.6 mmol/L Normal 3.5-5.1 [facility] Comment on above: Performed By: #### E RUR #### [facility] [address] [address] [address] Helio Cee Protein [Mass/Vol] 6.4 g/dL Normal 6.4-8.2 [facility] Comment on above: Performed By: #### E RUR #### [facility] [address] [address] [address] Helio Cee Sodium [Moles/Vol] 141 mmol/L Normal 136-145 [facility] Comment on above: Performed By: #### E RUR #### [facility] [address] [address] [address] Helio Cee Urea nitrogen [Mass/Vol] 19.0 mg/dL Critically high 7.0-18.0 [facility] Comment on above: Performed By: #### E RUR #### [facility] [address] [place] [address] Dr. Helio Cee Urea nitrogen/Creatinine [Mass ratio] 18.4 mg/mg Normal [facility] Comment on above: Performed By: #### E RUR #### [facility] [address] [place] [address] Dr. Helio Cee XR CHEST 2 Von [...] BARRY Date: 2021-11-20 07:56 Normal [facility] BNPon 11-19-2021 Natriuretic peptide B (Bld) [Mass/Vol] 777.0 pg/mL Normal <=900.0 [facility] Comment on above: Performed By: #### E RUR #### [facility] [address] [place] [address] Dr. Helio Cee CBC AUTO DIFFon 11-19-2021 BASO # 0.0 103/ul Normal 0.0-0.1 [facility] Comment on above: Performed By: #### V [id number] #### [facility] [address] [address] [address] Helio Cee Basophils/100 WBC (Bld) 0.2 % Normal 0.2-2.0 [facility] Comment on above: Performed By: #### V [id number] #### [facility] [address] [place] [address] Dr. Helio Cee EO # 0.1 103/ul Normal 0.0-0.7 [facility] Comment on above: Performed By: #### V [id number] #### [facility] [address] [place] [address] Dr. Helio Cee Eosinophils/100 WBC (Bld) 0.5 % Critically low 0.9-7.0 [facility] Comment on above: Performed By: #### V [id number] #### [facility] [address] [place] [address] Dr. Helio Cee Erythrocyte distribution width (RBC) [Ratio] 14.6 % Normal 11.0-15.0 [facility] Comment on above: Performed By: #### V [id number] #### [facility] [address] [place] [address] Dr. Helio Cee Hematocrit (Bld) [Volume fraction] 37.4 % Normal 36.0-48.0 [facility] Comment on above: Performed By: #### V [id number] #### [facility] [address] [place] [address] Dr. Helio Cee Hemoglobin (Bld) [Mass/Vol] 11.5 g/dL Critically low 12.0-16.0 [facility] Comment on above: Performed By: #### V [id number] #### [facility] [address] [place] [address] Dr. Helio Cee IG # 0.07 10e3/ul Critically high 0.00-0.03 [facility] Comment on above: Performed By: #### V [id number] #### [facility] [address] [place] [address] Dr. Helio Cee IG % 0.5 % Normal 0.0-0.5 [facility] Comment on above: Performed By: #### V [id number] #### [facility] [address] [place] [address] Dr. Helio Cee LYMPH # 1.1 103/ul Critically low 1.2-3.8 [facility] Comment on above: Performed By: #### V [id number] #### [facility] [address] [place] [address] Dr. Helio Cee Lymphocytes/100 WBC (Bld) 6.8 % Critically low 20.5-60.0 [facility] Comment on above: Performed By: #### V [id number] #### [facility] [address] [place] [address] Dr. Helio Cee MANUAL DIFF REQ NO Normal [facility] Comment on above: Performed By: #### V [id number] #### [facility] [address] [place] [address] Dr. Helio Cee MCH (RBC) [Entitic mass] 30.1 pg Normal 26.7-34.0 [facility] Comment on above: Performed By: #### V [id number] #### [facility] [address] [place] [address] Dr. Helio Cee MCHC (RBC) [Mass/Vol] 30.7 g/dL Normal 29.9-35.2 [facility] Comment on above: Performed By: #### V [id number] #### [facility] [address] [place] [address] Dr. Helio Cee MCV (RBC) [Entitic vol] 97.9 fL Normal 81.0-99.0 [facility] Comment on above: Performed By: #### V [id number] #### [facility] [address] [place] [address] Dr. Helio Cee MONO # 0.8 103/ul Normal 0.3-0.8 [facility] Comment on above: Performed By: #### V [id number] #### [facility] [address] [place] [address] Dr. Helio Cee Monocytes/100 WBC (Bld) 5.3 % Normal 1.7-12.0 [facility] Comment on above: Performed By: #### V [id number] #### [facility] [address] [place] [address] Dr. Helio Cee NEUT # 13.3 103/ul Critically high 1.4-6.5 [facility] Comment on above: Performed By: #### V [id number] #### [facility] [address] [place] [address] Dr. Helio Cee Neutrophils/100 WBC (Bld) 86.7 % Critically high 43.0-75.0 [facility] Comment on above: Performed By: #### V [id number] #### [facility] [address] [place] [address] Dr. Helio Cee Platelet mean volume (Bld) [Entitic vol] 11.4 fL Normal 9.5-13.5 [facility] Comment on above: Performed By: #### V [id number] #### [facility] [address] [place] [address] Dr. Helio Cee PLT 215 103/ul Normal 150-450 [facility] Comment on above: Performed By: #### V [id number] #### [facility] [address] [place] [address] Dr. Helio Cee RBC 3.82 106/ul Critically low 4.20-5.40 [facility] Comment on above: Performed By: #### V [id number] #### [facility] [address] [place] [address] Dr. Helio Cee WBC 15.3 103/ul Critically high 4.0-11.0 [facility] Comment on above: Performed By: #### V [id number] #### [facility] [address] [place] [address] Dr. Helio Cee PROF 14(COMP METB)on 022 Albumin [Mass/Vol] 2.8 g/dL Critically low 3.4-5.0 [facility] Comment on above: Performed By: #### E RUR #### [facility] [address] [place] [address] Dr. Helio Cee Albumin/Globulin [Mass ratio] 0.8 {ratio} Normal [facility] Comment on above: Performed By: #### E RUR #### [facility] [address] [place] [address] Dr. Helio Cee ALP [Catalytic activity/Vol] 74 U/L Normal 46-116 [facility] Comment on above: Performed By: #### E RUR #### [facility] [address] [place] [address] Dr. Helio Cee ALT [Catalytic activity/Vol] 21 U/L Normal 14-59 [facility] Comment on above: Performed By: #### E RUR #### [facility] [address] [place] [address] Dr. Helio Cee Anion gap [Moles/Vol] 13.5 mmol/L Normal Th [facility] Comment on above: Performed By: #### E RUR #### [facility] [address] [place] [address] Dr. Helio Cee AST [Catalytic activity/Vol] 11 U/L Critically low 15-37 [facility] Comment on above: Performed By: #### E RUR #### [facility] [address] [place] [address] Dr. Helio Cee Bilirubin [Mass/Vol] 0.5 mg/dL Normal 0.2-1.0 [facility] Comment on above: Performed By: #### E RUR #### [facility] [address] [place] [address] Dr. Helio Cee Calcium [Mass/Vol] 8.4 mg/dL Critically low 8.5-10.1 [facility] Comment on above: Performed By: #### E RUR #### [facility] [address] [place] [address] Dr. Helio Cee Chloride [Moles/Vol] 107 mmol/L Normal 98-107 [facility] Comment on above: Performed By: #### E RUR #### [facility] [address] [place] [address] Dr. Helio Cee CO2 [Moles/Vol] 21.0 mmol/L Normal 21.0-32.0 [facility] Comment on above: Performed By: #### E RUR #### [facility] [address] [address] [address] Helio Cee Creatinine [Mass/Vol] 1.07 mg/dL Critically high 0.55-1.02 [facility] Comment on above: Performed By: #### E RUR #### [facility] [address] [address] [address] Helio Cee EGFR-AF AZERBAIJANI >60 Normal >=60 [facility] Comment on above: Performed By: #### E RUR #### [facility] [address] [address] [address] Helio Cee EGFR-NON AF AZERBAIJANI 50 mL/min/1.73m2 Critically low >=60 [facility] Comment on above: Performed By: #### E RUR #### [facility] [address] [address] [address] Helio Cee Globulin (S) [Mass/Vol] 3.4 g/dL Normal [facility] Comment on above: Performed By: #### E RUR #### [facility] [address] [address] [address] Helio Cee Glucose [Mass/Vol] 109 mg/dL Critically high 74-106 [facility] Comment on above: Performed By: #### E RUR #### [facility] [address] [address] [address] Helio Cee Potassium [Moles/Vol] 3.5 mmol/L Normal 3.5-5.1 [facility] Comment on above: Performed By: #### E RUR #### [facility] [address] [address] [address] Helio Cee Protein [Mass/Vol] 6.2 g/dL Critically low 6.4-8.2 [facility] Comment on above: Performed By: #### E RUR #### [facility] [address] [address] [address] Helio Cee Sodium [Moles/Vol] 138 mmol/L Normal 136-145 [facility] Comment on above: Performed By: #### E RUR #### [facility] [address] [address] [address] Helio Cee Urea nitrogen [Mass/Vol] 25.0 mg/dL Critically high 7.0-18.0 [facility] Comment on above: Performed By: #### E RUR #### [facility] [address] [address] [address] Helio Cee Urea nitrogen/Creatinine [Mass ratio] 23.4 mg/mg Normal [facility] Comment on above: Performed By: #### E RUR #### [facility] [address] [address] [address] Helio Cee BNPon 11-18-2021 Natriuretic peptide B (Bld) [Mass/Vol] 386.0 pg/mL Normal <=900.0 [facility] Comment on above: Performed By: #### B SECOND OFFICER, HSTROPN, BMP ####[facility] [address] [address] Helio Cee CBC AUTO DIFFon 11-18-2021 BASO # 0.0 103/ul Normal 0.0-0.1 [facility] Comment on above: Performed By: #### V [id number] #### [facility] [address] [place] [address] Dr. Helio Cee Basophils/100 WBC (Bld) 0.3 % Normal 0.2-2.0 [facility] Comment on above: Performed By: #### V [id number] #### [facility] [address] [place] [address] Dr. Helio Cee EO # 0.0 103/ul Normal 0.0-0.7 [facility] Comment on above: Performed By: #### V [id number] #### [facility] [address] [place] [address] Dr. Helio Cee Eosinophils/100 WBC (Bld) 0.1 % Critically low 0.9-7.0 [facility] Comment on above: Performed By: #### V [id number] #### [facility] [address] [place] [address] Dr. Helio Cee Erythrocyte distribution width (RBC) [Ratio] 14.4 % Normal 11.0-15.0 [facility] Comment on above: Performed By: #### V [id number] #### [facility] [address] [place] [address] Dr. Helio Cee Hematocrit (Bld) [Volume fraction] 43.6 % Normal 36.0-48.0 [facility] Comment on above: Performed By: #### V [id number] #### [facility] [address] [place] [address] Dr. Helio Cee Hemoglobin (Bld) [Mass/Vol] 13.4 g/dL Normal 12.0-16.0 [facility] Comment on above: Performed By: #### V [id number] #### [facility] [address] [place] [address] Dr. Helio Cee IG # 0.03 10e3/ul Normal 0.00-0.03 [facility] Comment on above: Performed By: #### V [id number] #### [facility] [address] [place] [address] Dr. Helio Cee IG % 0.3 % Normal 0.0-0.5 [facility] Comment on above: Performed By: #### V [id number] #### [facility] [address] [place] [address] Dr. Helio Cee LYMPH # 0.4 103/ul Critically low 1.2-3.8 [facility] Comment on above: Performed By: #### V [id number] #### [facility] [address] [place] [address] Dr. Helio Cee Lymphocytes/100 WBC (Bld) 4.0 % Critically low 20.5-60.0 [facility] Comment on above: Performed By: #### V [id number] #### [facility] [address] [place] [address] Dr. Helio Cee MANUAL DIFF REQ NO Normal [facility] Comment on above: Performed By: #### V [id number] #### [facility] [address] [place] [address] Dr. Helio Cee MCH (RBC) [Entitic mass] 29.6 pg Normal 26.7-34.0 [facility] Comment on above: Performed By: #### V [id number] #### [facility] [address] [place] [address] Dr. Helio Cee MCHC (RBC) [Mass/Vol] 30.7 g/dL Normal 29.9-35.2 [facility] Comment on above: Performed By: #### V [id number] #### [facility] [address] [place] [address] Dr. Helio Cee MCV (RBC) [Entitic vol] 96.5 fL Normal 81.0-99.0 [facility] Comment on above: Performed By: #### V [id number] #### [facility] [address] [place] [address] Dr. Helio Cee MONO # 0.6 103/ul Normal 0.3-0.8 [facility] Comment on above: Performed By: #### V [id number] #### [facility] [address] [place] [address] Dr. Helio Cee Monocytes/100 WBC (Bld) 5.4 % Normal 1.7-12.0 [facility] Comment on above: Performed By: #### V [id number] #### [facility] [address] [place] [address] Dr. Helio Cee NEUT # 9.7 103/ul Critically high 1.4-6.5 [facility] Comment on above: Performed By: #### V [id number] #### [facility] [address] [place] [address] Dr. Helio Cee Neutrophils/100 WBC (Bld) 89.9 % Critically high 43.0-75.0 [facility] Comment on above: Performed By: #### V [id number] #### [facility] [address] [place] [address] Dr. Helio Cee Platelet mean volume (Bld) [Entitic vol] 10.9 fL Normal 9.5-13.5 [facility] Comment on above: Performed By: #### V [id number] #### [facility] [address] [place] [address] Dr. Helio Cee PLT 265 103/ul Normal 150-450 [facility] Comment on above: Performed By: #### V [id number] #### [facility] [address] [place] [address] Dr. Helio Cee RBC 4.52 106/ul Normal 4.20-5.40 [facility] Comment on above: Performed By: #### V [id number] #### [facility] [address] [place] [address] Dr. Helio Cee WBC 10.7 103/ul Normal 4.0-11.0 [facility] Comment on above: Performed By: #### V [id number] #### [facility] [address] [place] [address] Dr. Helio Cee CULTURE BLOODon 11-18-2021 Microscopic examination of blood, culture Culture Observations: NO GROWTH AT 5 DAYS. Normal [facility] Comment on above: Performed By: #### B [id number] #### [facility] [address] [place] [address] Dr. Helio Cee Microscopic examination of blood, culture Culture Observations: NO GROWTH AT 5 DAYS. Normal [facility] Comment on above: Performed By: #### B [id number] #### [facility] [address] [place] [address] Dr. Helio Cee Covid-19 PCR (CVDTB)on SARS-CoV-2 (COVID-19) RNA KIMMY+probe Ql (Unsp spec) Not detected Normal NOT DETECTED [facility] Comment on above: Result Comment: When [...] for this test is supported by the [place] of Health and Human Service's declaration that [...] Performed By: #### E RUR #### [facility] [address] [place] [address] Dr. Helio Cee ER URINE PROFILEon 2 Bilirubin Ql (U) Negative Normal NEGATIVE [facility] Comment on above: Performed By: #### E RUR #### [facility] [address] [place] [address] Dr. Helio Cee Clarity (U) CLEAR Normal CLEAR [facility] Comment on above: Performed By: #### E RUR #### [facility] [address] [place] [address] Dr. Helio Cee Color (U) LT. YELLOW Normal YELLOW [facility] Comment on above: Performed By: #### E RUR #### [facility] [address] [place] [address] Dr. Helio Cee ERUAHD A micrscopic examination will be performed if indicated. Normal [facility] Comment on above: Performed By: #### E RUR #### [facility] [address] [place] [address] Dr. Helio Cee Glucose Ql (U) Negative Normal NEGATIVE [facility] Comment on above: Performed By: #### E RUR #### [facility] [address] [place] [address] Dr. Helio Cee Hemoglobin Ql (U) Negative Normal NEGATIVE [facility] Comment on above: Performed By: #### E RUR #### [facility] [address] [place] [address] Dr. Helio Cee Ketones Ql (U) Negative Normal NEGATIVE [facility] Comment on above: Performed By: #### E RUR #### [facility] [address] [place] [address] Dr. Heilo Cee LEUKOCYTES Negative Normal NEGATIVE [facility] Comment on above: Performed By: #### E RUR #### [facility] [address] [address] [address] Helio Cee Nitrite Ql (U) Negative Normal NEGATIVE [facility] Comment on above: Performed By: #### E RUR #### [facility] [address] [place] [address] Dr. Helio Cee pH (U) 5.5 [pH] Normal 5-9 [facility] Comment on above: Performed By: #### E RUR #### [facility] [address] [place] [address] Dr. Helio Cee SPEC GRAVITY 1.015 Normal 1.005-<=1.02 5 [facility] Comment on above: Performed By: #### E RUR #### [facility] [address] [place] [address] Dr. Helio Cee UA PROTEIN Negative Normal NEGATIVE/ TRACE [facility] Comment on above: Performed By: #### E RUR #### [facility] [address] [place] [address] Dr. Helio Cee UR MICRO IND NOT INDICATED Normal [facility] Comment on above: Performed By: #### E RUR #### [facility] [address] [place] [address] Dr. Helio Cee Urobilinogen Qn (U) 0.2 {Nevaeh'U}/dL Normal 0.2 - 1. 0 [facility] Comment on above: Performed By: #### E RUR #### [facility] [address] [place] [address] Dr. Helio Cee PROF CHEM 8 (BAS METB)on Anion gap [Moles/Vol] 13.6 mmol/L Normal [facility] Comment on above: Performed By: #### B SECOND OFFICER, HSTROPN, BMP ####[facility] [address] [address]Dr. Helio Cee Calcium [Mass/Vol] 9.1 mg/dL Normal 8.5-10.1 [facility] Comment on above: Performed By: #### B SECOND OFFICER, HSTROPN, BMP ####[facility] [address] [address]Dr. Helio Cee Chloride [Moles/Vol] 110 mmol/L Critically high 98-107 [facility] Comment on above: Performed By: #### B SECOND OFFICER, HSTROPN, BMP ####[facility] [address] [place], [place] [address]Dr. Helio Cee CO2 [Moles/Vol] 22.9 mmol/L Normal 21.0-32.0 [facility] Comment on above: Performed By: #### B SECOND OFFICER, HSTROPN, BMP ####[facility] [address] [place], [place] [address]Dr. Helio Cee Creatinine [Mass/Vol] 1.47 mg/dL Critically high 0.55-1.02 [facility] Comment on above: Performed By: #### B SECOND OFFICER, HSTROPN, BMP ####[facility] [address] [place], [place] [address]Dr. Helio Cee EGFR-AF AZERBAIJANI 42 mL/min/1.73m2 Critically low >=60 [facility] Comment on above: Performed By: #### B SECOND OFFICER, HSTROPN, BMP ####[facility] [address] [place], [place] [address]Dr. Helio Cee EGFR-NON AF AZERBAIJANI 35 mL/min/1.73m2 Critically low >=60 [facility] Comment on above: Performed By: #### B SECOND OFFICER, HSTROPN, BMP ####[facility] [address] [place], [place] [address]Dr. Helio Cee Glucose [Mass/Vol] 120 mg/dL Critically high 74-106 [facility] Comment on above: Performed By: #### B SECOND OFFICER, HSTROPN, BMP ####[facility] [address] [place], [place] [address]Dr. Helio Cee Potassium [Moles/Vol] 3.5 mmol/L Normal 3.5-5.1 [facility] Comment on above: Performed By: #### B SECOND OFFICER, HSTROPN, BMP ####[facility] [address] [id number]. Helio Cee Sodium [Moles/Vol] 143 mmol/L Normal 136-145 [facility] Comment on above: Performed By: #### B SECOND OFFICER, HSTROPN, BMP ####[facility] [address] [id number]. Helio Cee Urea nitrogen [Mass/Vol] 29.0 mg/dL Critically high 7.0-18.0 [facility] Comment on above: Performed By: #### B SECOND OFFICER, HSTROPN, BMP ####[facility] [address] [address]Dr. Helio Cee Urea nitrogen/Creatinine [Mass ratio] 19.7 mg/mg Normal [facility] Comment on above: Performed By: #### B SECOND OFFICER, HSTROPN, BMP ####[facility] [address] [address]Dr. Helio Cee TROPONIN, HIGH SENSITIVITYon 11-18-2021 HSTROP 8.2 pg/mL Normal 4.0-51.3 [facility] Comment on above: Result Comment: CUT- OFF POINTS HAVE BEEN ESTABLISHED BASED ON THE FOURTH UNIVERSAL DEFINITIONS OF MYOCARDIAL INFARCTION. THE UPPER REFERENCE LIMIT (URL) OF TROPONIN, DEFINED THE 99TH PERCENTILE OF cTnI DISTRIBUTION IN A REFERENCE POPULATION, HAS BEEN CONFIRMED THE DECISION THRESHOLD FOR PR DIAGNOSIS. Performed By: #### B SECOND OFFICER, HSTROPN, BMP ####[facility] [address] [id number]. Helio Cee XR CHEST 1 Von 11-18-2021 [...] B (Bld) [Mass/Vol] 396.0 pg/mL Normal <=900.0 [facility] Comment on above: Performed By: #### V [id number] #### [facility] [address] [place] [address] Dr. Helio Cee CBC AUTO DIFFon 10-25-2021 BASO # 0.1 103/ul Normal 0.0-0.1 [facility] Comment on above: Performed By: #### E RUR #### [facility] [address] [place] [address] Dr. Helio Cee Basophils/100 WBC (Bld) 1.0 % Normal 0.2-2.0 [facility] Comment on above: Performed By: #### E RUR #### [facility] [address] [place] [address] Dr. Helio Cee EO # 0.2 103/ul Normal 0.0-0.7 [facility] Comment on above: Performed By: #### E RUR #### [facility] [address] [place] [address] Dr. Helio Cee Eosinophils/100 WBC (Bld) 2.7 % Normal 0.9-7.0 [facility] Comment on above: Performed By: #### E RUR #### [facility] [address] [place] [address] Dr. Helio Cee Erythrocyte distribution width (RBC) [Ratio] 14.6 % Normal 11.0-15.0 [facility] Comment on above: Performed By: #### E RUR #### [facility] [address] [place] [address] Dr. Helio Cee Hematocrit (Bld) [Volume fraction] 44.8 % Normal 36.0-48.0 [facility] Comment on above: Performed By: #### E RUR #### [facility] [address] [place] [address] Dr. Helio Cee Hemoglobin (Bld) [Mass/Vol] 13.8 g/dL Normal 12.0-16.0 [facility] Comment on above: Performed By: #### E RUR #### [facility] [address] [place] [address] Dr. Helio Cee IG # 0.03 10e3/ul Normal 0.00-0.03 [facility] Comment on above: Performed By: #### E RUR #### [facility] [address] [place] [address] Dr. Helio Cee IG % 0.3 % Normal 0.0-0.5 [facility] Comment on above: Performed By: #### E RUR #### [facility] [address] [place] [address] Dr. Helio Cee LYMPH # 1.6 103/ul Normal 1.2-3.8 [facility] Comment on above: Performed By: #### E RUR #### [facility] [address] [place] [address] Dr. Helio Cee Lymphocytes/100 WBC (Bld) 18.5 % Critically low 20.5-60.0 [facility] Comment on above: Performed By: #### E RUR #### [facility] [address] [place] [address] Dr. Helio Cee MANUAL DIFF REQ NO Normal [facility] Comment on above: Performed By: #### E RUR #### [facility] [address] [place] [address] Dr. Helio Cee MCH (RBC) [Entitic mass] 29.9 pg Normal 26.7-34.0 [facility] Comment on above: Performed By: #### E RUR #### [facility] [address] [place] [address] Dr. Helio Cee MCHC (RBC) [Mass/Vol] 30.8 g/dL Normal 29.9-35.2 [facility] Comment on above: Performed By: #### E RUR #### [facility] [address] [place] [address] Dr. Helio Cee MCV (RBC) [Entitic vol] 97.2 fL Normal 81.0-99.0 [facility] Comment on above: Performed By: #### E RUR #### [facility] [address] [place] [address] Dr. Helio Cee MONO # 0.6 103/ul Normal 0.3-0.8 [facility] Comment on above: Performed By: #### E RUR #### [facility] [address] [place] [address] Dr. Helio Cee Monocytes/100 WBC (Bld) 7.0 % Normal 1.7-12.0 [facility] Comment on above: Performed By: #### E RUR #### [facility] [address] [place] [address] Dr. Helio Cee NEUT # 6.1 103/ul Normal 1.4-6.5 [facility] Comment on above: Performed By: #### E RUR #### [facility] [address] [place] [address] Dr. Helio Cee Neutrophils/100 WBC (Bld) 70.5 % Normal 43.0-75.0 [facility] Comment on above: Performed By: #### E RUR #### [facility] [address] [place] [address] Dr. Helio Cee Platelet mean volume (Bld) [Entitic vol] 11.0 fL Normal 9.5-13.5 [facility] Comment on above: Performed By: #### E RUR #### [facility] [address] [place] [address] Dr. Helio Cee PLT 292 103/ul Normal 150-450 [facility] Comment on above: Performed By: #### E RUR #### [facility] [address] [place] [address] Dr. Helio Cee RBC 4.61 106/ul Normal 4.20-5.40 [facility] Comment on above: Performed By: #### E RUR #### [facility] [address] [place] [address] Dr. Helio Cee WBC 8.6 103/ul Normal 4.0-11.0 [facility] Comment on above: Performed By: #### E RUR #### [facility] [address] [address] [address] Helio Cee ECHOCARDIO M/2D COMPLETEon 0 10-25-2021 ECHOCARDIO M/2D COMPLETE Patient: AARON LEWIS Exam Date: 10/25/2021 : 1945 Gender:F Ordering : DR JEREMIAH REED M.D. Admission #: [id number] Family : Order #: [id number] CLICK HERE TO VIEW EXAM ECHOCARDIOGRAM REPORT [...] Area(A4C): 20.40 cm2 Left Atrium Systolic Volume(A2C): 37233 mm3 Left Atrium Systolic Volume(A4C): 31524 mm3 Mitral Valve MV E to A Ratio: 0.80 Deceleration [place]: 4670 mm/s2 Mitral Valve A-Wave Peak Velocity: [...] : DR JEREMIAH REED M.D. Admission #: [id number] Family : Order #: [id number] CLICK HERE TO VIEW EXAM RADIOLOGY REPORT [...] cancer at age 72. LOCATION: [facility] BREAST COMPOSITION: Heterogeneously dense,which may obscure [...] Miller M.D. on 10/25/2021 at 15:33 Normal [facility] PROF 14(COMP METB)on 022 Albumin [Mass/Vol] 3.8 g/dL Normal 3.4-5.0 [facility] Comment on above: Performed By: #### V [id number] #### [facility] [address] [address] [address] Helio Cee Albumin/Globulin [Mass ratio] 1.1 {ratio} Normal [facility] Comment on above: Performed By: #### V [id number] #### [facility] [address] [address] [address] Helio Cee ALP [Catalytic activity/Vol] 97 U/L Normal 46-116 [facility] Comment on above: Performed By: #### V [id number] #### [facility] [address] [address] [address] Helio Cee ALT [Catalytic activity/Vol] 31 U/L Normal 14-59 [facility] Comment on above: Performed By: #### V [id number] #### [facility] [address] [address] [address] Helio Cee Anion gap [Moles/Vol] 11.0 mmol/L Normal [facility] Comment on above: Performed By: #### V [id number] #### [facility] [address] [address] [address] Helio Cee AST [Catalytic activity/Vol] 13 U/L Critically low 15-37 [facility] Comment on above: Performed By: #### V [id number] #### [facility] [address] [address] [address] Helio Cee Bilirubin [Mass/Vol] 0.4 mg/dL Normal 0.2-1.0 [facility] Comment on above: Performed By: #### V [id number] #### [facility] [address] [address] [address] Helio Cee Calcium [Mass/Vol] 9.3 mg/dL Normal 8.5-10.1 [facility] Comment on above: Performed By: #### V [id number] #### [facility] [address] [address] [address] Helio Cee Chloride [Moles/Vol] 108 mmol/L Critically high 98-107 [facility] Comment on above: Performed By: #### V [id number] #### [facility] [address] [address] [address] Helio Cee CO2 [Moles/Vol] 28.4 mmol/L Normal 21.0-32.0 [facility] Comment on above: Performed By: #### V [id number] #### [facility] [address] [address] [address] Helio Cee Creatinine [Mass/Vol] 1.09 mg/dL Critically high 0.55-1.02 [facility] Comment on above: Performed By: #### V [id number] #### [facility] [address] [place] [address] Dr. Helio Cee EGFR-AF AZERBAIJANI 59 mL/min/1.73m2 Critically low >=60 [facility] Comment on above: Performed By: #### V [id number] #### [facility] [address] [address] [address] Helio Cee EGFR-NON AF AZERBAIJANI 49 mL/min/1.73m2 Critically low >=60 [facility] Comment on above: Performed By: #### V [id number] #### [facility] [address] [address] [address] Helio Cee Globulin (S) [Mass/Vol] 3.4 g/dL Normal [facility] Comment on above: Performed By: #### V [id number] #### [facility] [address] [address] [address] Helio Cee Glucose [Mass/Vol] 100 mg/dL Normal 74-106 [facility] Comment on above: Performed By: #### V [id number] #### [facility] [address] [address] [address] Helio Cee Potassium [Moles/Vol] 4.4 mmol/L Normal 3.5-5.1 [facility] Comment on above: Performed By: #### V [id number] #### [facility] [address] [place] [address] Dr. Helio Cee Protein [Mass/Vol] 7.2 g/dL Normal 6.4-8.2 [facility] Comment on above: Performed By: #### V [id number] #### [facility] [address] [place] [address] Dr. Helio Cee Sodium [Moles/Vol] 143 mmol/L Normal 136-145 [facility] Comment on above: Performed By: #### V [id number] #### [facility] [address] [place] [address] Dr. Helio Cee Urea nitrogen [Mass/Vol] 24.0 mg/dL Critically high 7.0-18.0 [facility] Comment on above: Performed By: #### V [id number] #### [facility] [address] [place] [address] Dr. Helio Cee Urea nitrogen/Creatinine [Mass ratio] 22.0 mg/mg Normal [facility] Comment on above: Performed By: #### V [id number] #### [facility] [address] [place] [address] Dr. Heloi Cee TSHon 10-25-2021 TSH 0.635 uIU/mL Normal 0.358-3.740 [facility] Comment on above: Performed By: #### V [id number] #### [facility] [address] [place] [address] Dr. Helio Cee Vital Signs Date Time Vital Sign Value Performing Clinician Facility 12-25-2023 12:37-0400 Blood Pressure Location BRENDA MIAH [facility] 12-25-2023 12:37-0400 Body temperature 98.6 [degF] BRENDA MIAH [facility] 12-25-2023 12:37-0400 Diastolic blood pressure 86 mm[Hg] BRENDA MIAH [facility] 12-25-2023 12:37-0400 Heart rate 70 /min BRENDA MIAH [facility] 12-25-2023 12:37-0400 Respiratory rate 16 /min BRENDA MIAH [facility] 12-25-2023 12:37-0400 Systolic blood pressure 137 mm[Hg] BRENDA MIAH [facility] 09-26-2023 15:39-0400 Blood Pressure Location BRENDA MIAH [facility] 09-26-2023 15:39-0400 Diastolic blood pressure 84 mm[Hg] BRENDA MIAH [facility] 09-26-2023 15:39-0400 Heart rate 68 /min BRENDA MIAH [facility] 09-26-2023 15:39-0400 Respiratory rate 16 /min BRENDA MIAH [facility] 09-26-2023 15:39-0400 Systolic blood pressure 132 mm[Hg] BRENDA MIAH [facility] 08-28-2023 14:59-0400 Blood Pressure Location BRENDA MIAH [facility] 08-28-2023 14:59-0400 Body temperature 98.24 [degF] BRENDA MIAH [facility] 08-28-2023 14:59-0400 Diastolic blood pressure 80 mm[Hg] BRENDA MIAH [facility] 08-28-2023 14:59-0400 Heart rate 92 /min BRENDA MIAH [facility] 08-28-2023 14:59-0400 Respiratory rate 16 /min BRENDA MIAH [facility] 08-28-2023 14:59-0400 Systolic blood pressure 132 mm[Hg] BRENDA MIAH [facility] 06-05-2023 12:55-0500 Blood Pressure Location BRENDA MIAH [facility] 06-05-2023 12:55-0500 Diastolic blood pressure 88 mm[Hg] BRENDA MIAH [facility] 06-05-2023 12:55-0500 Heart rate 74 /min BRENDA MIAH [facility] 06-05-2023 12:55-0500 Respiratory rate 16 /min BRENDA MIAH [facility] 06-05-2023 12:55-0500 Systolic blood pressure 134 mm[Hg] BRENDA MARIN [facility] 04-30-2023 15:30-0500 Body height 161.29 cm Jeremiah Reed Other [facility] 04-30-2023 15:30-0500 Body mass index (BMI) [Ratio] 35.29 kg/m2 Jeremiah Reed Other [facility] Other 04-30-2023 15:30-0500 Body weight 91.81 kg Jeremiah Reed Other [facility] Other 04-30-2023 15:30-0500 Diastolic blood pressure 74 mm[Hg] Jeremiah Reed Other [facility] Other 04-30-2023 15:30-0500 Systolic blood pressure 109 mm[Hg] Jeremiah Reed Other [facility] Other 04-13-2023 14:40-0500 Hourly Rounding [facility] 04-13-2023 14:40-0500 Promise to Return [facility] 04-13-2023 13:00-0500 Diastolic blood pressure 77 mm[Hg] [facility] 04-13-2023 13:00-0500 Heart rate 78 /min [facility] 04-13-2023 13:00-0500 Hourly Rounding [facility] 04-13-2023 13:00-0500 Promise to Return [facility] 04-13-2023 13:00-0500 Respiratory rate 16 /min Ahmad [facility] 04-13-2023 13:00-0500 Systolic blood pressure 127 mm[Hg] [facility] 04-13-2023 12:13-0500 Heart rate 80 /min [facility] 04-13-2023 12:13-0500 SaO2% (BldA) [Mass fraction] 95 % [facility] 04-13-2023 12:12-0500 Body temperature 97.16 [degF] [facility] 04-13-2023 12:11-0500 Diastolic blood pressure 78 mm[Hg] [facility] 04-13-2023 12:11-0500 Mean blood pressure 94 mm[Hg] [facility] 04-13-2023 12:11-0500 Systolic blood pressure 125 mm[Hg] [facility] 04-13-2023 12:00-0500 Hourly Rounding [facility] 04-13-2023 12:00-0500 Promise to Return [facility] 04-13-2023 09:10-0500 Diastolic blood pressure 70 mm[Hg] [facility] 04-13-2023 09:10-0500 Heart rate 87 /min [facility] 04-13-2023 09:10-0500 Mean blood pressure 90 mm[Hg] [facility] 04-13-2023 09:10-0500 Respiratory rate 17 /min [facility] 04-13-2023 09:10-0500 Systolic blood pressure 130 mm[Hg] [facility] 04-13-2023 08:00-0500 SaO2% (BldA) [Mass fraction] 93 % [facility] 04-13-2023 07:29-0500 Heart rate 89 /min [facility] 04-13-2023 07:29-0500 SaO2% (BldA) [Mass fraction] 94 % [facility] 04-13-2023 07:29-0500 Mean blood pressure 88 mm[Hg] Jacintoag [facility] 04-13-2023 07:29-0500 Body temperature 97.88 [degF] [facility] 04-13-2023 05:00-0500 Blood Pressure Location [facility] 04-13-2023 05:00-0500 Heart rate 95 /min [facility] 04-13-2023 05:00-0500 Mean blood pressure 100 mm[Hg] kittyag [facility] 04-13-2023 00:18-0500 Blood Pressure Location [facility] 04-13-2023 00:18-0500 Body temperature 97.52 [degF] [facility] 04-12-2023 20:33-0500 Body temperature 97.34 [degF] [facility] 04-12-2023 20:33-0500 Mean blood pressure 88 mm[Hg] [facility] 04-12-2023 18:03-0500 Blood Pressure Location [facility] 04-12-2023 16:49-0500 Respiratory rate 22 /min [facility] 04-12-2023 15:00-0500 Respiratory rate 20 /min [facility] 04-12-2023 12:24-0500 gluc 88 mg/dL [facility] 04-12-2023 12:24-0500 gluc [facility] 04-12-2023 12:19-0500 Body temperature 97.7 [degF] [facility] 03-29-2023 15:30-0500 Body height 161.29 cm Jeremiah Reed Other [facility] Other 03-29-2023 15:30-0500 Body mass index (BMI) [Ratio] 37.14 kg/m2 Jeremiah Reed Other [facility] Other 03-29-2023 15:30-0500 Body weight 96.62 kg Jeremiah Reed Other [facility] Other 03-29-2023 15:30-0500 Diastolic blood pressure 85 mm[Hg] Jeremiah Reed Other [facility] Other 03-29-2023 15:30-0500 Systolic blood pressure 144 mm[Hg] Jeremiah Reed Other [facility] Other 06-21-2022 14:42-0500 Blood Pressure Location BRENDA MARIN [facility] Encounters Encounter Date Encounter Type Care Provider Facility Start: 03-04-2024 ambulatory BRENDA Eric ty:AYDE Terrazas Start: 02-04-2024 End: 02-04-2024 ambulatory Drake Delatorre MD Facility: [facility] Start: 01-24-2024 End: 01-24-2024 ambulatory DIDIER MALDONADO Not Available Start: 01-07-2024 End: 01-07-2024 ambulatory Drake Delatorre MD Facility: [facility] Start: 12-27-2023 End: 12-27-2023 ambulatory [facility] Start: 12-27-2023 End: 12-27-2023 Patient encounter procedure BRENDA MARIN [facility] Start: 12-25-2023 End: 12-25-2023 ambulatory BRENDA MARIN Facility:[facility] Start: 12-25-2023 End: 12-25-2023 Patient encounter procedure BRENDA MARIN [facility] Start: 12-17-2023 End: 12-17-2023 ambulatory Drake Delatorre MD Facility:[facility] Start: 12-03-2023 End: 12-03-2023 ambulatory Cayden ROBB Facility:[facility] Start: 12-03-2023 End: 12-03-2023 Patient encounter procedure Cayden ROBB [facility] Start: 11-26-2023 End: 11-26-2023 ambulatory Alexandro CARMONA Facility:[facility] Start: 11-26-2023 End: 11-26-2023 Patient encounter procedure Alexandro CARMONA [facility] Start: 11-08-2023 End: 11-08-2023 ambulatory DIDIER MALDONADO Not Available Start: 10-29-2023 End: 10-29-2023 ambulatory Drake Delatorre MD Facility: [facility] Start: 10-15-2023 End: 10-15-2023 ambulatory Drake Delatorre MD Facility:[facility] Start: 09-26-2023 End: 09-26-2023 ambulatory BRENDA MARIN Facility:[facility] Start: 09-26-2023 End: 09-26-2023 Patient encounter procedure BRENDA MARIN [facility] Start: 09-17-2023 End: 09-17-2023 ambulatory Drake Delatorre MD Facility:[facility] Start: 08-30-2023 End: 08-30-2023 ambulatory DIDIER Richy JOEL Not Available Start: 08-28-2023 End: 08-28-2023 ambulatory BRENDA E MIAH Facility:[facility] Start: 08-28-2023 End: 08-28-2023 Patient encounter procedure BRENDA E MIAH [facility] Start: 07-23-2023 End: 07-23-2023 ambulatory Cayden ROBB Facility:[facility] Start: 07-23-2023 End: 07-23-2023 Patient encounter procedure Cayden Hollins CEZAR [facility] Start: 07-09-2023 End: 07-09-2023 ambulatory BRENDA E MIAH Facility:[facility] Start: 06-20-2023 End: 06-20-2023 ambulatory Jeremiah Reed Other [facility] Other Start: 06-20-2023 Telephone encounter Jeremiah Reed [facility] Start: 06-05-2023 End: 06-05-2023 ambulatory BRENDA E MIAH Facility:[facility] Start: 06-05-2023 End: 06-05-2023 Lab Drop off BRENDA E MIAH [facility] Start: 06-05-2023 End: 06-05-2023 ambulatory BRENDA E MIAH Facility:[facility] Start: 06-05-2023 End: 06-05-2023 Patient encounter procedure BRENDA E MIAH [facility] Start: 04-30-2023 End: 04-30-2023 ambulatory Jeremiah Reed Other [facility] Other Start: 04-30-2023 Office outpatient vi sit 25 minutes Jeremiah Reed [facility] Start: 04-30-2023 Telephone encounter Jeremiah Derek [facility] Start: 04-17-2023 End: 04-17-2023 ambulatory Jeremiah Reed Other [facility] Other Start: 04-17-2023 Telephone encounter Jeremiah Derek [facility] Start: 04-13-2023 End: 04-13-2023 ambulatory Ray Fofana Other [facility] Other Start: 04-13-2023 Telephone encounter Ray Fofana [facility] Start: 04-12-2023 End: 04-13-2023 ambulatory Efrain Kurtz Facility:[facility] Start: 04-12-2023 End: 04-13-2023 Observation Efrain Kurtz [facility] Start: 04-09-2023 End: 04-09-2023 ambulatory Drake Delatorre MD Facility: [facility] Start: 03-30-2023 End: 03-30-2023 ambulatory Jeremiah Reed Other [facility] Other Start: 03-30-2023 Telephone encounter Jeremiah Derek [facility] Start: 03-29-2023 End: 03-29-2023 ambulatory Jeremiah Reed Other [facility] Other Start: 03-29-2023 Transitional care manage srvc 14 day discharge Jeremiah Reed [facility] Start: 03-05-2023 End: 03-05-2023 ambulatory Drake Delatorre MD Facility:[facility] Start: 09-01-2022 End: 09-02-[address] JEREMIAH REED Facility: Start: 08-29-2022 End: 08-30-2022 ambulatory BARBARA LAKSHMIPATHY . Facility:[facility] Start: 08-21-2022 End: 08-22-[address] EHSAN MILLER Facility:[facility] Start: 08-10-2022 End: 08-11-2022 ambulatory BRENT MALDONADO Facility:[facility] Start: 06-21-2022 End: 06-21-2022 Patient encounter procedure BRENDA MARIN [facility] Start: 06-12-2022 End: 06-13-2022 ambulatory [...] Facility:[facility] Start: 11-24-[address] JEREMIAH REED [facility] ity:[facility] Start: 11-22-2021 End: 11-22-[address] SHIREEN ORTEGA Facility:[facility] Start: 11-18-2021 End: 11-21-2021 Evaluation and management of inpatient DR HARSHAL MENDIETA Facility:[facility] Start: 10-25-2021 End: 10-26-[address] EHSAN MILLER Facility:[facility] Start: 10-24-2018 End: 10-24-2018 Patient encounter procedure Radha Kosta Dong Work Phone: [facility] Start: 08-21-2018 End: 08-21-2018 Patient encounter procedure Radha L Clinjaziel Work Phone: [facility] Start: 06-28-2018 End: 06-28-2018 Patient encounter procedure Radha Dong Work Phone: [facility] Procedures Date Procedure Procedure [...] Influenza vaccination INFLUENZ A VACCINE (Season Ended) [facility] Start: 01-12-2018 Influenza vaccination INFLUENZA VACC INE (#1) [facility] Start: 02-10-2012 Pneumococcal vaccination PNEUM OCOCCAL VACCINE SERIES (1 of 2 - PCV13) [facility] Start: 1997 Protein mass conc COLON CANCER SCREENING DISCUSSION [facility] Start: 1997 Zoster vaccine hzv l derrell for subcutaneous use ZOSTER (SHINGLES) VACCINE (1 of 2) [facility] Start: 1987 Fasting lipid profile LIPID SCREENIN G [facility] Start: 1987 Protein mass conc MAMMOGRAM SC REENING DISCUSSION [facility] Start: 02-10-1968 Screening for malign ant neoplasm of cervix PAP SMEAR DISCUSSION [facility] Start: 1966 Third diphtheria, te tanus and acellular pertussis (DTaP) vaccination TDAP (ADULT) [facility] Start: 1965 Tetanus vaccination TETANUS [facility] Start: 1947 Hepatitis C antibody , confirmatory test HEPATITIS C VIRUS SCREENING [facility] Start: 1947 Screening for osteoporosis DEXA SCAN DISCUSSION [facility] Immunizations Immunization Date Immunization Notes Care Provider Keiko koenig 11-18-2021 SARS-CoV-2 (COVID-19 ) mRNA BNT-162b2 vax BRENDA MARIN [facility] 07-21-2020 SARS-CoV-2 (COVID-19 ) Ad26 vaccine, recombinant BRENDA MARIN [facility] 04-11-2020 influenza virus vaccine, unspecified formulation BRENDA MARIN [facility] 02-02-2011 influenza virus vaccine, unspecified formulation BRENDA MARIN [facility] Payers Date Payer Category Payer Medicare 2022 Unknown 1959 Medicare [id number] 1959 Unknown [id number] 1947 Unknown [id number] 2.16.84 0.1.954253.3.579.2.593 1947 Unknown [id number] 2.16.84 0.1.742635.3.579.2.593 1947 Unknown [id number] 2.16.84 0.1.668805.3.579.2.593 1947 Unknown [id number] 2.16.84 0.1.709154.3.579.2.593 1947 Unknown [id number] 2.16.84 0.1.699659.3.579.2.593 1947 Unknown [id number] 2.16.84 0.1.893506.3.579.2.593 1947 Unknown [id number] 2.16.84 0.1.539340.3.579.2.593 1947 Unknown [id number] 2.16.84 0.1.592843.3.579.2.593 1947 Unknown [id number] 2.16.84 0.1.319607.3.579.2.593 1947 Unknown [id number] 2.16.84 0.1.736317.3.579.2.593 1947 Unknown [id number] 2.16.84 0.1.484158.3.579.2.593 1947 Unknown [id number] 2.16.84 0.1.401321.3.579.2.593 1947 Unknown [id number] 2.16.84 0.1.707180.3.579.2.593 1947 Unknown [id number] 2.16.84 0.1.316770.3.579.2.593 1947 Unknown [id number] 2.16.84 0.1.650831.3.579.2.593 1947 Unknown [id number] 2.16.84 0.1.876277.3.579.2.593 1947 Unknown [id number] 2.16.84 0.1.441848.3.579.2.593 1947 Unknown [id number] 2.16.84 0.1.878150.3.579.2.593 1947 Unknown [id number] 2.16.84 0.1.322841.3.579.2.593 1947 Unknown [id number] 2.16.84 0.1.531025.3.579.2.593 1947 Unknown [id number] 2.16.84 0.1.751326.3.579.2.593 1947 Unknown [id number] 2.16.84 0.1.280690.3.579.2.1259 1947 Unknown [id number] 2.16.84 0.1.180509.3.579.2.1259 1947 Unknown [id number] 2.16.84 0.1.197697.3.579.2.1259 1947 Unknown [id number] 2.16.8 40.1.552143.3.579.2.727 1947 Unknown [id number] 2.16.8 40.1.698386.3.579.2.727 1947 Unknown [id number] 2.16.8 40.1.913878.3.579.2.727 1947 Unknown [id number] 2.16.8 40.1.109424.3.579.2.727 1947 Unknown [id number] 2.16.8 40.1.982316.3.579.2.72 1947 Unknown [id number] 2.16.8 40.1.630435.3.579.2.727 1947 Unknown [id number] 2.16.8 40.1.189377.3.579.2. 1947 Unknown [id number] 2.16.8 40.1.096966.3.579.2.727 1947 Unknown [id number] 2.16.8 40.1.354427.3.579.2.727 1947 Unknown [id number] 2.16.8 40.1.118976.3.579.2.727 1947 Unknown [id number] 2.16.8 40.1.734058.3.579.2.72 1947 Unknown [id number] 2.16.8 40.1.095278.3.579.2.727 1947 Unknown [id number] 2.16.8 40.1.342660.3.579.2.72 1947 Unknown [id number] 2.16. 840.1.936135.3.579.2.196 1947 Unknown [id number] 2.16. 840.1.062069.3.579.2. 1947 Unknown [id number] 2.16. 840.1.416446.3.579.2.196 1947 Unknown [id number] 2.16. 840.1.466662.3.579.2.196 1947 Unknown [id number] 2.16. 840.1.378690.3.579.2.196 1947 Unknown [id number] 2.16. 840.1.069979.3.579.2.196 1947 Unknown [id number] 2.16. 840.1.053377.3.579.2.196 1947 Unknown [id number] 2.16. 840.1.198441.3.579.2.196 Social History Date Type Detail Facility Tobacco smoking stat [facility] Unknown if ever smoked [facility] Sex Assigned At Not on file [facility] Start: 02-03-2021 End: 12-25-2023 Tobacco smoking status Ex-smoker (finding) [facility] Sex Assigned At Female [facility] Tobacco smoking status Never [facility] Functional Status Date Assessment Result Facility 12-25-2023 Functional Status N/A [facility] 12-03-2023 Functional Status N/A [facility] 09-26-2023 Functional Status N/A [facility] 08-28-2023 Functional Status N/A [facility] 06-05-2023 Functional Status N/A [facility] 04-12-2023 Functional Status N/A [facility] 04-12-2023 Functional Status [facility] 06-21-2022 Functional Status N/A [facility] Clinical Notes 01-12-2013 to 12-25-2023 Note [...] to have the catheter removed. Medicines Take fipw-qyg-xacrdhz and prescription medicines only as told by [...] provider. Document Revised: 12/16/2020 Document Reviewed: 12/03/2020 [employer] Patient Education 2022 [place]. Follow Up Care 12/03/2023 14:36:32 With:BRENDA MARIN PA-C, URL Address: [address] [place] [place] [address] [phone] When: Unknown [facility] 12-25-2023 Note Patient Education Urology Injection [...] have the catheter removed. Medicines ? Take qhhu-ici-xujpckh and prescription medicines only as told by [...] provider. Document Revised: 12/16/2020 Document Reviewed: 12/03/2020 [email or web address] Patient Education ? 2022 [place]. [facility] 12-03-2023 Hospital Discharg e instructions Patient [...] Up Care 10/01/2023 15:36:12 With:BRENDA MARIN Address: [address] [facility] [place] [address] Business (1) When: Unknown Comments:Call for followup appointment with Georgette Marin PA-C within the next three weeks or so. Push fluids to keep the urine clear. Expect the Botox to start working within the next 2-3 weeks. Have a great day! [facility] 12-03-2023 Note Patient Education Cystoscopy with [...] you have a fever over 100 degrees. [facility] 09-26-2023 Hospital Discharg e instructions Patient [...] including vitamins, herbs, eye drops, creams, and pfys-vsb-xqrydjw medicines. Any problems you or family members [...] provider tells you to take them. Taking bybe-cqz-prfhryl medicines, vitamins, herbs, and supplements. General instructions [...] Follow these instructions at home: Medicines Take qmum-vzn-ikwbfay and prescription medicines only as told by [...] provider. Document Revised: 11/04/2021 Document Reviewed: 11/04/2021 [employer] Patient Education 2022 [place]. Follow Up Care 08/30/2023 10:04:37 With:BRENDA MARIN PA-C, URL Address: [address] [place] [address] [phone] When: Unknown Comments:flaquita dietz MD [facility] 08-28-2023 Hospital Discharg e instructions Patient [...] your health care provider. General instructions Take bhvl-rac-fiwwpam and prescription medicines only as told by [...] provider. Document Revised: 01/17/2021 Document Reviewed: 01/17/2021 [employer] Patient Education 2022 [place]. Follow Up Care 07/23/2023 14:35:57 With:BRENDA MARIN PA-C, URL Address: [address] [place] [address]. [place] [address] Business (1) When:6 weeks [facility] 07-23-2023 Hospital Discharg e instructions Patient [...] Up Care 06/11/2023 13:39:28 With:BRENDA MARIN Address: [address] [facility] [place] [address] Business (1) When: Unknown Comments:Call for followup appointment with Georgette Marin PA-c within the next 2 months or so to monitor you. Please finish your antibiotics and have a great day. [facility] 07-23-2023 Note [id number] [facility] 07-23-2023 Note Cystoscopy with Uret hral [...] you have a fever over 100 degrees [facility] 06-20-2023 Evaluation note Encounter Date Diagnosis Assessment Notes Jun, Essential (primary) hypertension (ICD-10 - I10) [facility] Other 01-23-2024 Hospital Discharge instructions Patient Education [...] reconstructed. Follow these instructions at home: Take mtiv-vxp-pczfdbt and prescription medicines only as told by [...] provider. Document Revised: 03/07/2022 Document Reviewed: 03/07/2022 [email or web address] Patient Education 2022 [employer] Follow Up Care 06/21/2022 15:14:52 With:CEZAR BERNAL, Cayden Hollins, URL Address: [address] [place] [address]- When: Unknown [facility] 01-23-2024 Evaluation + Plan note Diagnostic Tests Pending * Urine Culture 06/05/23 [facility]12-18-2023 Evaluation note* Encounter Date Diagnosis Assessment [...] symptoms. Any developing patterns. Stay well hydrated. [facility] Other [id number] NoteChief Complaint pt arrives via [facility] after being found outside by a neighbor without a shirt on. pt is a/o to self and place, not time. FSBS upon arrival 88. Pt was recently treated for UTI @[facility]. pt. shayla fall, was found sitting down. History of Present Illness 78-year-old female with PMH reformed smoker, HTN, anxiety, depression, peripheral neuropathy, GERD, OAB, obesity. -Patient presented to the ED secondary to confusion. -Per ED physician patient was recently in [facility] and treated for a UTI on [...] Lymph Auto: 9.7 % Low (04/12/23 12:53:00) [place] Auto: 7.8 % (04/12/23 12:53:00) Eos Auto: 0.1 % (04/12/23 12:53:00) Basophil Auto: 0.4 % (04/12/23 12:53:00) Neutro Absolute: 12.4 E9/L High (04/12/23 12:53:00) Lymph Absolute: 1.5 E9/L (04/12/23 12:53:00) [place] Absolute: 1.2 E9/L High (04/12/23 12:53:00) Eos [...] 88 mg/dL (04/12/23 12:23:00) POC Device SN: [id number] (04/12/23 12:23:00) POC User ID: (more content not included)...[facility]:Result Comment: Electronically Signed By: Radha TAYLOR\.br\Date and Time Signed: 04/12/23 16:29 EST\.br\Electronically Co-Signed By: Radha TAYLOR\.br\Date and Time Co-Signed: 04/12/23 16:37 EST\.br\Electronically Co-Signed By: Radha TAYLOR\.br\Date and Time Co-Signed: 04/12/23 16:58 EST\.br\Electronically Co-Signed By: Tessie BERNAL, Efrain\.br\Date and Time Co-Signed: 04/13/23 16:43 [id number] NoteAdmission and Discharge Information Admitting Physician - [...] willbe reviewed and discussed with PCP or foundation maker MD once the hospital foxing cutting machine operator is able to reach him/her. [...] made to ensure accuracy, however, inadvertently computerized document control clerk mistakes may be present. Significant Findings CT [...] spine, with routine reconst (more content not included)...[facility]:Result Comment: Electronically Signed By: [...] Ahmad\.br\Date and Time Co- Signed: 04/13/23 16:37 [id number] Evaluation + Plan noteExtracted from: Title:Discharge Note [...] 1 to [address], [place] [address]- Business (1) Additional Instructions: JEREMIAH REED Within 2 to 4 days [address] [place] [address]- Business (1) Additional Instructions: Confusion Extracted from: [...] vein thrombosis (DVT) prophylaxis (Z79.899: Other extermination inspector (current) drug therapy) Depression, unspecified (F32.A: Depression, [...] deep vein thrombosis (DVT) prophylaxis (Z79.899: Other group home (current) drug therapy) Depression, unspecified (F32.A: Depression, [...] Cr - unknown - awaiting records from [facility] -Renal US & PVR - if Cr [...] vein thrombosis (DVT) prophylaxis (Z79.899: Other extermination inspector (current) drug therapy) -Heparin sq with early [...] made to ensure accuracy, however, inadvertently computerized document control clerk mistakes may be present. Future Appointments Appointment Date:06/05/2023 01:00:00 PM Scheduled Provider:BRENDA MARIN PA-C Location:[facility] Appointment Type:URO Office Visit [facility]12-01-2023 Hospital Discharge instructions Patient Education 04/13/2023 [...] friend for help if needed. Medicines Take ybxs-xmp-ykztxwo and prescription medicines only as told by [...] consider day care, extended-care programs, or a penitentiary facility. The person's health care provider may [...] provider. Document Revised: 08/24/2020 Document Reviewed: 08/24/2020 [employer] Patient Education 2022 [place]. Follow Up Care 04/12/2023 12:15:50 With:Johnnie BERNAL, ALPHONSE Choi Address: [place] [id number]- When:1 to 2 weeks Comments:This office is closed on Fridays. Please call the office on Sunday April 16, 2023 for a follow upappiontment. Thank you. With:JEREMIAH REED Address: [address] [place] [id number] [facility] (1) When:2 to 4 days Comments:Call for followup appointment With:[facility] Address:Unknown When: Unknown Comments:Call for followup appointment for anxiety/depression care. [facility]12-01-2023 NoteChief Complaint AMS Reason for [...] deep vein thrombosis (DVT) prophylaxis (Z79.899: Other group home (current) drug therapy) Depression, unspecified (F32.A: Depression, [...] 2 tab(s), Oral, q6hr, PRN Afrin 0.05% [place], 2 s (more content not included)...[facility] Comment on above:Result Comment: Electronically Signed [...] hand. Will likely benefit from home health PT.[facility]11-17-2023 Evaluation note* Encounter Date Diagnosis Assessment Notes Treatment Notes Treatment Clinical Notes Mar, Colon cancer screening (ICD-10 - Z12.11) [facility] Other 11-16-2023 Evaluation note* Encounter Date Diagnosis Assessment Notes Treatment Notes Treatment Clinical Notes Mar, Generalized weakness (ICD-10 - R53.1) Followup as scheduled w ortho and PT Mar, COPD, moderate (ICD-10 - J44.9) continue present medication reviewed ER report from observation status [facility] Other 03-30-2023 NoteCONSULTATION CONSULTATION DATE: 08/10/2022 TO: [...] time or sooner if needed. [id number] NoteCONSULTATION PROCEDURE DATE: 08/10/2022 PROCEDURE: Right suprascapular [...] in her pain symptoms post procedurally.[facility] [id number] Hospital Discharge instructions Patient Education 06/21/2022 14:35:24 [...] fried and sweet foods. General instructions Take usfw-fms-hupiilx and prescription medicines only as told by [...] 02/24/2010 Document Revised: 08/21/2019 Document Reviewed: 05/16/2018 [employer] Patient Education 2020 [place]. Follow Up Care 05/19/2021 14:10:29 With:BRENDA MARIN PA-C, URL Address: [address] [place] [address] [facility] [place] [address] When: Unknown [facility] 12-29-2022 NoteCONSULTATION CONSULTATION DATE: 05/11/2022 HISTORY [...] the diclofenac. 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 [...] three months' time unless otherwise indicated.[facility] [id number] NoteCONSULTATION CONSULTATION DATE: 02/23/2022 This is a [...] three months' time unless otherwise indicated.[facility] [id number] NoteCONSULTATION CONSULTATION DATE: 01/08/2022 HISTORY OF PRESENT [...] up in the office post procedure.[facility] [id number] Note CONSULTATION CONSULTATION DATE: 12/07/2021 HISTORY OF [...] patient would like to proceed. [facility] HospitalHguplpif14-15-0159 History general Narrative - Reported* Type Description Date Medical History Chronic back pain Medical History HTN Medical History anxiety Medical History DJD Medical History osteoporosis Surgical History Lumbar laminectomy and fusion Surgical History Hysterectomy (spared L ovary) Surgical History Landaverde's neuroma Hospitalization History For surgery as above Hospitalization History [facility] 03/2023 [facility] Other Evaluation + Plan note Future Appointments Appointment Date:06/26/2023 02:30:00 PM Scheduled Provider:BRENDA MARIN PA-C Location:[facility] Appointment Type:URO Office Visit [facility] evaluation + Plan note Future Appointments Appointment Date:08/28/2023 03:00:00 PM Scheduled Provider:BRENDA MARIN PA-C Location:[facility] Future Appointments Appointment Date:11/27/2023 11:00:00 AM Scheduled Provider: Location:[facility] Appointment Type:Urology CALL PAT FT Appointment Date:12/03/2023 02:00:00 PM Scheduled Provider: Location:[facility] Appointment Type:Urology FT [facility] evaluation + Plan note Future Appointments Appointment Date:12/25/2023 12:40:00 PM Scheduled Provider:BRENDA MARIN PA-C Location:[facility] Appointment Type:URO Office Visit [facility] noteNo [employer] Other Hospital course Narrative No data available for this section [facility] Hospital Discharge instructions No data available for this section [facility] No data available for this section [facility] Summary Purpose Family History No Family [...] Personnel Name: JEREMIAH REED MD Address: Address: [address] [place] [address] Personnel Name: JEREMIAH REED MD Address: Address: [address] [place] [address] Personnel Name: JEREMIAH REED MD Address: Address: [address] [place] [address] Personnel Name: JEREMIAH REED MD Address: Address: [address] [place] [address] Personnel Name: JEREMIAH REED MD Address: Address: [address] [place] [address] Personnel Name: JEREMIAH REED MD Address: Address: [address] [place] [address] Personnel Name: JEREMIAH REED MD Address: Address: [address] [place] [address] Personnel Name: JEREMIAH REED MD Address: Address: [address] [place] [address] Personnel Name: JEREMIAH REED MD Address: Address: [address] [place] [address] Personnel Name: JEREMIAH REED MD Address: Address: [address] [place] [address] Personnel Name: JEREMIAH REED MD Address: Address: [address] [place] [address] INFORMATION SOURCE (unrecogn ized section and content) DATE CREATED AUTHOR 09/08/2022 [facility] pital DATE CREATED AUTHOR AUTHOR'S ORGANIZ ATION 01/26/2024 [facility] DATE CREATED AUTHOR AUTHOR'S ORGANIZ ATION 01/30/2024 [facility] DATE CREATED AUTHOR AUTHOR'S ORGANIZ ATION 02/11/2024 [facility] FOR RECORDS PERTAINING TO PATIENTS WHO ARE [...] BE BASED ON THE PRIMARY CLINICAL RECORDS. [employer] provides no warranty or guarantee of the accuracy or completeness of information in this document.
--- NOTE | 2024-03-01 17:11 | CT_ITS ---
The [address] [address] Patient Name: AARON JJ MRN: [id number] date: 1945 Sex: F Assigned Patient Location: ER Current Patient Location: Accession/Order Number: [id number] Exam Date: 03/01/2024 17:23 Report Date: 03/01/2024 18:42 At the request of: BUCK GUTIERREZ Procedure: CT stroke head/brain wo con CT HEAD WITHOUT CONTRAST, 03/01/2024. HISTORY: Confusion. Slurred speech. COMPARISON: CT head, 03/21/2023. TECHNIQUE: Noncontrast axial CT images obtained through the head. Reconstructions obtained in the sagittal and coronal planes. Dose reduction techniques were achieved by using automated exposure control and/or adjustment of mA and/or kV according to patient size and/or use of iterative reconstruction technique. FINDINGS: Paranasal sinuses clear. Mastoid air cells clear. No skull lesion. Orbital contents normal. Extracranial soft tissue structures are unremarkable. No hydrocephalus. No mass effect. No shift of midline. No extra-axial fluid collection. 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 Marcum matter and white matter differentiation intact. No hemorrhage. No mass. CT/CT stroke head/brain wo con IMPRESSION: Stable CT of the head. No acute findings. No hemorrhage. No masses. Electronically authenticated by: CHIQUIS KEATING Date: 03/01/2024 18:42
--- NOTE | 2024-03-01 17:12 | ECG_ITS ---
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
[2024-03-01 17:19] LABS: Glucometer 96 mg/dL (74-106)
[2024-03-01] MEDS: 0.9 % SODIUM CHLORIDE 1,000 ML 1000 ML IV (18:03)
--- NOTE | 2024-03-01 18:17 | ED_ITS ---
HPI - Altered Mental Status General Chief Complaint: Altered Mental Status Stated Complaint: CONFUSION Time Seen by Provider: 03/01/24 16:58 Source: patient Mode of arrival: Wheelchair Limitations: no limitations History of Present Illness HPI narrative: The patient is a 79-year-old female who diagnosed with shingles almost 3 days ago is coming to us after the family noted yesterday she has been confused, she has not been able to name anything right, and she have some balance issue compared to her baseline She is to use the walker and for the last 24 to 48 hours she has not been eating as usual and even with a walker she still out of balance The patient had no fever or chills at any time As per the patient she does not have any headache, and the patient herself does not think that her have any complaints and she is fine Most of the concerns are raised by her family members who noted that she is not acting herself since yesterday Related Data Home Medications ?Medication ?Instructions ?Recorded ?Confirmed multivitamin 1 tab PO DAILY 10/26/22 02/04/24 omeprazole 40 mg capsule,delayed 40 mg PO DAILY 10/26/22 02/04/24 release calcium carbonate (Calcium 600) 600 mg PO DAILY 03/21/23 02/04/24 meloxicam 15 mg tablet 15 mg PO DAILY 03/21/23 02/04/24 baclofen 10 mg tablet 5 mg PO TID PRN muscle spasm 07/19/23 02/04/24 acetaminophen 325 mg tablet 650 mg PO Q6H PRN pain 08/30/23 02/04/24 amlodipine 2.5 mg tablet 2.5 mg PO DAILY 08/30/23 02/04/24 aspirin 81 mg tablet,delayed 81 mg PO DAILY 08/30/23 02/04/24 release glucosamine sulfate 500 mg tablet 500 mg PO BID 08/30/23 02/04/24 (Glucosamine) oxycodone-acetaminophen 5 mg-325 1 tab PO TID PRN pain 08/30/23 02/04/24 mg tablet (Percocet) albuterol sulfate 90 mcg/actuation 2 puff inhalation Q4H PRN 12/28/23 02/04/24 aerosol inhaler shortness of breath or wheezing buspirone 10 mg tablet 10 mg PO BID 12/28/23 02/04/24 Previous Rx's ?Medication ?Instructions ?Recorded gabapentin 300 mg capsule 300 mg PO TID #270 caps 06/07/23 nortriptyline 25 mg capsule 25 mg PO DAILY #90 caps 10/17/23 baclofen 10 mg tablet 10 mg PO BID #60 tabs 02/25/24 gabapentin 300 mg capsule 300 mg PO TID #90 caps 02/25/24 oxycodone-acetaminophen 5 mg-325 1 tab PO TID PRN pain #90 tabs 02/25/24 mg tablet (Percocet) methylprednisolone 4 mg tablets in 4 mg PO DAILY shingles #21 ea 02/27/24 a dose pack (Medrol (Wilfred)) tobramycin 0.3 %-dexamethasone 1 drp ophthalmic (eye) Q6H 02/27/24 0.05 % eye drops,suspension shingles 7 days #5 mL (Tobradex ST) valacyclovir 1 gram tablet 1,000 mg PO TID 5 days #15 tabs 02/27/24 (Valtrex) Allergies Allergy/AdvReac Type Severity Reaction Status Date / Time No Known Drug Allergies Allergy Verified 02/04/24 10:16 Review of Systems ROS Status of ROS 10 or more systems reviewed and unremark able except as noted in history and below [facility] Medical History COPD (chronic obstructive pulmonary disease) ?J44.9 - Chronic obstructive pulmonary disease, unspecified (ICD-10) GERD (gastroesophageal reflux disease) ?K21.9 - Gastro-esophageal reflux disease without esophagitis (ICD-10) Chronic pain ?G89.29 - Other chronic pain (ICD-10) Anxiety ?F41.9 - Anxiety disorder, unspecified (ICD-10) HTN (hypertension) ?I10 - Essential (primary) hypertension (ICD-10) Chronic prescription opiate use ?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 (ICD-10) Shoulder arthritis ?M19.019 - Primary osteoarthritis, unspecified shoulder (ICD-10) Cervical spondylosis ?M47.812 - Spondylosis without myelopathy or radiculopathy, cervical region (ICD-10) Surgical History History of lumpectomy of left breast ?Z98.890 - Other specified postprocedural states (ICD-10) History of back surgery ?Z98.890 - Other specified postprocedural states (ICD-10) History of hysterectomy ?Z90.710 - Acquired absence of both cervix and uterus (ICD-10) Family History Mother Family history of cancer Father Family history of stroke Grandfather Family history of stroke Social History Within the past year, how often did you have a drink containing alcohol: never Score interpretation: A score less than 3 is consistent with normal alcohol consumption. Smoking status: Former smoker Non-prescribed substance use: denies use Previous occupational history: retired Highest level of school completed/degree received: high school graduate Are you now , , , , never or living with a partner: Little interest or pleasure in doing things: not at all Feeling down, depressed, or hopeless: not at all Feel stressed/tense/nervous/anxious/difficulty sleeping: not at all Do you think of yourself as: straight/heterosexual Gender Identity: female Exam Narrative Exam Narrative: Nurses notes and vital signs reviewed and patient is not hypoxic. General: Well-appearing and in no apparent distress. Skin: Warm, dry, no pallor noted. No rash. Head: Normocephalic, atraumatic. On the left side of the face the patient have rash on the upper and lower eyelids dry not vesicular Neck: Supple, non-tender. Eye: Pupils are equal, round and EOMI. No scleral icterus. Ears, Nose, Mouth, and Throat: TM are clear, no nasal mucosal hypertrophy. Oral mucosa is dry , no posterior oropharynx erythema, uvula is mid-line Cardiovascular: Regular Rate and Rhythm without murmur, gallop or rub. Respiratory: No accessory muscle use or respiratory distress. Lungs are clear to auscultation, no wheezing, rales or rhonchi Chest Wall: no tenderness Back: No midline thoracic or lumbar vertebral tenderness. No CVA tenderness Musculoskeletal: normal ROM, no calf or popliteal tenderness, no lower extremity edema/swelling GI: Abdomen is soft, non-distended. Normal bowel sounds. No masses appreciated. No tenderness to palpation. No rebound, guarding, or rigidity noted. Neurological: A&O x4. No cranial nerve dysfunction observed. No truncal ataxia. Moves all extremities. Sensation intact. Psychiatric: Cooperative and interactive. Normal mood and affect. Constitutional Vital Signs, click to edit/add: Last Vital Signs Temp 97.7 F 03/01/24 16:54 Pulse 97 H 03/01/24 18:50 Resp 18 03/01/24 18:50 BP 147/84 H 03/01/24 18:45 Pulse Ox 81 L 03/01/24 18:50 O2 Del Method Room Air 03/01/24 16:54 Course Vital Signs Vital signs: Vital Signs Temperature 97.7 F 03/01/24 16:54 Pulse Rate 114 H 03/01/24 16:54 Respiratory Rate 24 H 03/01/24 16:54 Blood Pressure 110/74 03/01/24 16:54 Pulse Oximetry 98 03/01/24 16:54 Oxygen Delivery Method Room Air 03/01/24 16:54 Temperature 97.7 F 03/01/24 16:54 Pulse Rate 97 H 03/01/24 18:50 Respiratory Rate 18 03/01/24 18:50 Blood Pressure 147/84 H 03/01/24 18:45 Pulse Oximetry 81 L 03/01/24 18:50 Oxygen Delivery Method Room Air 03/01/24 16:54 MDM - Altered Mental Status MDM Narrative Medical decision making narrative: The patient EKG upon presentation is showing sinus rhythm with a heart rate of [address] elevation or depression that is significant seen on the EKG compared to the patient's last EKG The patient CT head showed no acute pathology The patient CBC showed no leukocytosis and the chemistry was showing some acute kidney injury with elevated BUN and elevated creatinine Patient was started on IV fluid upon arrival she was having dry mucous membranes on examination but her NIH score was 0 It was noted that the patient is complaining of pain all over including neck pain but she did not have any stiffness of the neck but she also had photosensitivity although she did deny headache Lab Data Labs: Lab Results 03/01/24 03/01/24 Range/Units 17:19 18:20 WBC 9.8 (4.0-11.0) 10^3/uL RBC 4.98 (4.20-5.40) 10^6/uL Hgb 14.8 (12.0-16.0) g/dL Hct 46.0 (36.0-48.0) % MCV 92.4 (81.0-99.0) fL MCH 29.7 (26.7-34.0) pg MCHC 32.2 (29.9-35.2) g/dL RDW 15.3 H (11.0-15.0) % Plt Count 276 (150-450) 10^3/uL MPV 10.9 (9.5-13.5) fL Neut % (Auto) 78.5 H (43.0-75.0) % Lymph % (Auto) 12.3 L (20.5-60.0) % [place] % (Auto) 8.1 (1.7-12.0) % Eos % (Auto) 0.1 L (0.9-7.0) % Baso % (Auto) 0.3 (0.2-2.0) % Neut # (Auto) 7.7 H (1.4-6.5) 10^3/uL Lymph # (Auto) 1.2 (1.2-3.8) 10^3/uL [place] # (Auto) 0.8 (0.3-0.8) 10^3/uL Eos # (Auto) 0.0 (0.0-0.7) 10^3/uL Baso # (Auto) 0.0 (0.0-0.1) 10^3/uL Abs Immat Gran (auto) 0.07 H (0.00-0.03) 10^3/uL Imm/Tot Granulo (auto) 0.7 H (0.0-0.5) % PT 10.3 (9.0-11.6) sec INR 0.97 Sodium 138 (136-145) mmol/L Potassium 4.8 (3.5-5.1) mmol/L Chloride 103 (98-107) mmol/L Carbon Dioxide 19.7 L (21.0-32.0) mmol/L Anion Gap 20.1 BUN 29.0 H (7.0-18.0) mg/dL Creatinine 1.86 H (0.55-1.02) mg/dL Est GFR ( Amer) 32 L (>=60 mL/min/1.73m^2) Est GFR (Non-Af Amer) 26 L (>=60 mL/min/1.73m^2) BUN/Creatinine Ratio 15.6 Glucose 105 (74-106) mg/dL Lactate 1.1 (0.4-2.0) mmol/L Calcium 10.3 H (8.5-10.1) mg/dL Magnesium 2.8 H (1.8-2.4) mg/dL Total Bilirubin 0.5 (0.2-1.0) mg/dL AST 15 (15-37) U/L ALT 24 (14-59) U/L Alkaline Phosphatase 76 (46-116) U/L Total Protein 7.0 (6.4-8.2) g/dL Albumin 3.5 (3.4-5.0) g/dL Globulin 3.5 g/dL Albumin/Globulin Ratio 1.0 POC Glucose 96 (74-106) mg/dL Discharge Plan Discharge Patient Disposition: Still a Patient
[2024-03-01 18:29] LABS: Basophils Percent Auto 0.3 % (0.2-2.0); Eosinophils Percent Auto 0.1 % (0.9-7.0); Hemoglobin 14.8 g/dL (12.0-16.0); Immature Granulocytes Abs Auto 0.07 10^3/uL (0.00-0.03); Immature Granulocytes Pct Auto 0.7 % (0.0-0.5); Lymphocytes Absolute Auto 1.2 10^3/uL (1.2-3.8); Lymphocytes Percent Auto 12.3 % (20.5-60.0); Mean Corpuscular HGB Conc 32.2 g/dL (29.9-35.2); Mean Corpuscular Hemoglobin 29.7 pg (26.7-34.0); Mean Corpuscular Volume 92.4 fL (81.0-99.0); Mean Platelet Volume 10.9 fL (9.5-13.5); Monocytes Absolute Auto 0.8 10^3/uL (0.3-0.8); Monocytes Percent Auto 8.1 % (1.7-12.0); Neutrophils Absolute Auto 7.7 10^3/uL (1.4-6.5); Neutrophils Percent Auto 78.5 % (43.0-75.0); Platelet Count 276 10^3/uL (150-450); Red Blood Count 4.98 10^6/uL (4.20-5.40); Red Cell Distribution Width 15.3 % (11.0-15.0); White Blood Count 9.8 10^3/uL (4.0-11.0)
[2024-03-01 18:44] LABS: INR 0.97; Prothrombin Time 10.3 sec (9.0-11.6)
[2024-03-01 18:45] LABS: Alanine Aminotransferase 24 U/L (14-59); Albumin Level 3.5 g/dL (3.4-5.0); Alkaline Phosphatase 76 U/L (46-116); Anion Gap 20.1; Aspartate Amino Transferase 15 U/L (15-37); BUN Creatinine Ratio 15.6; Bilirubin Total 0.5 mg/dL (0.2-1.0); Calcium 10.3 mg/dL (8.5-10.1); Carbon Dioxide 19.7 mmol/L (21.0-32.0); Chloride 103 mmol/L (98-107); Estimated GFR (African America 32 (>=60 mL/min/1.73m^2); Estimated GFR (Non-African Ame 26 (>=60 mL/min/1.73m^2); Globulin 3.5 g/dL; Glucose 105 mg/dL (74-106); Magnesium 2.8 mg/dL (1.8-2.4); Potassium 4.8 mmol/L (3.5-5.1); Sodium 138 mmol/L (136-145)
[2024-03-01 18:48] LABS: Lactate/Lactic Acid 1.1 mmol/L (0.4-2.0)
[2024-03-01 19:19] LABS: Bilirubin Urine NEGATIVE (NEGATIVE); Blood Urine NEGATIVE (NEGATIVE); Clarity Urine CLEAR (CLEAR); Color Urine LT. YELLOW (YELLOW); Glucose Urine UA NEGATIVE (NEGATIVE); Ketones Urine TRACE mg/dL (NEGATIVE); Leukocyte Esterase Urine NEGATIVE (NEGATIVE); Nitrite Urine NEGATIVE (NEGATIVE); Protein Urine NEGATIVE (NEG/TRACE); Urobilinogen Urine 0.2 EU/dL (0.2-1.0)
[2024-03-01 19:20] LABS: Urine Microscopic Indicated NO
--- NOTE | 2024-03-01 20:05 | ED.AMS1 ---
HPI - Altered Mental Status General Chief Complaint: Altered Mental Status Stated Complaint: CONFUSION Time Seen by Provider: 03/01/24 16:58 Source: patient Mode of arrival: Wheelchair Limitations: no limitations History of Present Illness HPI narrative: 79-year-old female presented to the emergency department and was initially seen by Dr. Ruth and signed out to me after discussing the case with her thoroughly. Please see her full history and physical exam. Related Data Home Medications ?Medication ?Instructions ?Recorded ?Confirmed multivitamin 1 tab PO DAILY 10/26/22 02/04/24 omeprazole 40 mg capsule,delayed 40 mg PO DAILY 10/26/22 02/04/24 release calcium carbonate (Calcium 600) 600 mg PO DAILY 03/21/23 02/04/24 meloxicam 15 mg tablet 15 mg PO DAILY 03/21/23 02/04/24 baclofen 10 mg tablet 5 mg PO TID PRN muscle spasm 07/19/23 02/04/24 acetaminophen 325 mg tablet 650 mg PO Q6H PRN pain 08/30/23 02/04/24 amlodipine 2.5 mg tablet 2.5 mg PO DAILY 08/30/23 02/04/24 aspirin 81 mg tablet,delayed 81 mg PO DAILY 08/30/23 02/04/24 release glucosamine sulfate 500 mg tablet 500 mg PO BID 08/30/23 02/04/24 (Glucosamine) oxycodone-acetaminophen 5 mg-325 1 tab PO TID PRN pain 08/30/23 02/04/24 mg tablet (Percocet) albuterol sulfate 90 mcg/actuation 2 puff inhalation Q4H PRN 12/28/23 02/04/24 aerosol inhaler shortness of breath or wheezing buspirone 10 mg tablet 10 mg PO BID 12/28/23 02/04/24 Previous Rx's ?Medication ?Instructions ?Recorded gabapentin 300 mg capsule 300 mg PO TID #270 caps 06/07/23 nortriptyline 25 mg capsule 25 mg PO DAILY #90 caps 10/17/23 baclofen 10 mg tablet 10 mg PO BID #60 tabs 02/25/24 gabapentin 300 mg capsule 300 mg PO TID #90 caps 02/25/24 oxycodone-acetaminophen 5 mg-325 1 tab PO TID PRN pain #90 tabs 02/25/24 mg tablet (Percocet) methylprednisolone 4 mg tablets in 4 mg PO DAILY shingles #21 ea 02/27/24 a dose pack (Medrol (Wilfred)) tobramycin 0.3 %-dexamethasone 1 drp ophthalmic (eye) Q6H 02/27/24 0.05 % eye drops,suspension shingles 7 days #5 mL (Tobradex ST) valacyclovir 1 gram tablet 1,000 mg PO TID 5 days #15 tabs 02/27/24 (Valtrex) Allergies Allergy/AdvReac Type Severity Reaction Status Date / Time No Known Drug Allergies Allergy Verified 02/04/24 10:16 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 (ICD-10) Shoulder arthritis ?M19.019 - Primary osteoarthritis, unspecified shoulder (ICD-10) Cervical spondylosis ?M47.812 - Spondylosis without myelopathy or radiculopathy, cervical region (ICD-10) Surgical History History of lumpectomy of left breast ?Z98.890 - Other specified postprocedural states (ICD-10) History of back surgery ?Z98.890 - Other specified postprocedural states (ICD-10) History of hysterectomy ?Z90.710 - Acquired absence of both cervix and uterus (ICD-10) Family History Mother Family history of cancer Father Family history of stroke Grandfather Family history of stroke Social History Within the past year, how often did you have a drink containing alcohol: never Score interpretation: A score less than 3 is consistent with normal alcohol consumption. Smoking status: Former smoker Non-prescribed substance use: denies use Previous occupational history: retired Highest level of school completed/degree received: high school graduate Are you now , , , , never or living with a partner: Little interest or pleasure in doing things: not at all Feeling down, depressed, or hopeless: not at all Feel stressed/tense/nervous/anxious/difficulty sleeping: not at all Do you think of yourself as: straight/heterosexual Gender Identity: female Exam Constitutional Vital Signs, click to edit/add: Last Vital Signs Temp 97.7 F 03/01/24 16:54 Pulse 96 H 03/01/24 19:47 Resp 14 03/01/24 19:47 BP 154/84 H 03/01/24 19:47 Pulse Ox 93 L 03/01/24 19:47 O2 Del Method Room Air 03/01/24 19:47 Course Vital Signs Vital signs: Vital Signs Temperature 97.7 F 03/01/24 16:54 Pulse Rate 114 H 03/01/24 16:54 Respiratory Rate 24 H 03/01/24 16:54 Blood Pressure 110/74 03/01/24 16:54 Pulse Oximetry 98 03/01/24 16:54 Oxygen Delivery Method Room Air 03/01/24 16:54 Temperature 97.7 F 03/01/24 16:54 Pulse Rate 96 H 03/01/24 19:47 Respiratory Rate 14 03/01/24 19:47 Blood Pressure 154/84 H 03/01/24 19:47 Pulse Oximetry 93 L 03/01/24 19:47 Oxygen Delivery Method Room Air 03/01/24 19:47 MDM - Altered Mental Status MDM Narrative Medical decision making narrative: Her exam at 7:30 PM shows no nuchal rigidity. She is oriented but son states that she is not acting herself and has been confusing words. CT brain is negative and white count is normal. I am concerned about the possibility of viral meningitis in this patient who was recently diagnosed with shingles. 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 She would need to have IR do lumbar puncture if it was felt to be indicated. I have spoken to Dr. Monteiro, neurology at [facility], who accepts the patient in transfer. She is agreeable and stable for transfer. Findings are discussed thoroughly with the patient's son. Differential Diagnosis Differential diagnosis: Likely altered mental status, delirium and OTHER (Viral meningitis) Lab Data Attestation: I reviewed the patient's lab results. Labs: Lab Results 03/01/24 03/01/24 03/01/24 Range/Units 17:19 18:20 18:35 WBC 9.8 (4.0-11.0) 10^3/uL RBC 4.98 (4.20-5.40) 10^6/uL Hgb 14.8 (12.0-16.0) g/dL Hct 46.0 (36.0-48.0) % MCV 92.4 (81.0-99.0) fL MCH 29.7 (26.7-34.0) pg MCHC 32.2 (29.9-35.2) g/dL RDW 15.3 H (11.0-15.0) % Plt Count 276 (150-450) 10^3/uL MPV 10.9 (9.5-13.5) fL Neut % (Auto) 78.5 H (43.0-75.0) % Lymph % (Auto) 12.3 L (20.5-60.0) % Bent % (Auto) 8.1 (1.7-12.0) % Eos % (Auto) 0.1 L (0.9-7.0) % Baso % (Auto) 0.3 (0.2-2.0) % Neut # (Auto) 7.7 H (1.4-6.5) 10^3/uL Lymph # (Auto) 1.2 (1.2-3.8) 10^3/uL Bent # (Auto) 0.8 (0.3-0.8) 10^3/uL Eos # (Auto) 0.0 (0.0-0.7) 10^3/uL Baso # (Auto) 0.0 (0.0-0.1) 10^3/uL Abs Immat Gran (auto) 0.07 H (0.00-0.03) 10^3/uL Imm/Tot Granulo (auto) 0.7 H (0.0-0.5) % PT 10.3 (9.0-11.6) sec INR 0.97 Sodium 138 (136-145) mmol/L Potassium 4.8 (3.5-5.1) mmol/L Chloride 103 (98-107) mmol/L Carbon Dioxide 19.7 L (21.0-32.0) mmol/L Anion Gap 20.1 BUN 29.0 H (7.0-18.0) mg/dL Creatinine 1.86 H (0.55-1.02) mg/dL Est GFR ( Amer) 32 L (>=60 mL/min/1.73m^2) Est GFR (Non-Af Amer) 26 L (>=60 mL/min/1.73m^2) BUN/Creatinine Ratio 15.6 Glucose 105 (74-106) mg/dL Lactate 1.1 (0.4-2.0) mmol/L Calcium 10.3 H (8.5-10.1) mg/dL Magnesium 2.8 H (1.8-2.4) mg/dL Total Bilirubin 0.5 (0.2-1.0) mg/dL AST 15 (15-37) U/L ALT 24 (14-59) U/L Alkaline Phosphatase 76 (46-116) U/L Total Protein 7.0 (6.4-8.2) g/dL Albumin 3.5 (3.4-5.0) g/dL Globulin 3.5 g/dL Albumin/Globulin Ratio 1.0 Urine Color Lt. yellow (YELLOW) Urine Clarity Clear (CLEAR) Urine pH 6.0 (5.0-9.0) Ur Specific [place] 1.020 (1.005-1.025) Urine Protein Negative (NEG/TRACE) mg/dL Urine Glucose (UA) Negative (NEGATIVE) mg/dL Urine Ketones Trace A (NEGATIVE) mg/dL Urine Occult Blood Negative (NEGATIVE) Urine Nitrite Negative (NEGATIVE) Urine Bilirubin Negative (NEGATIVE) Urine Urobilinogen 0.2 (0.2-1.0) EU/dL Ur Leukocyte Esterase Negative (NEGATIVE) POC Glucose 96 (74-106) mg/dL Imaging Data CT scan - head: Radiologist's impression: ITS Impressions Brain CT 03/01/24 17:11 IMPRESSION: Stable CT of the head. No acute findings. No hemorrhage. No masses. Electronically authenticated by: CHIQUIS KEATING Date: 03/01/2024 18:42 Discharge Plan Discharge Chief Complaint: Altered Mental Status Clinical Impression: AMS (altered mental status) Patient Disposition: [facility] Time of Disposition Decision: 20:05 Discharge Location: [facility] Condition: Fair Mode of Transportation: EMS
[2024-03-01] MEDS: LORAZEPAM 2 MG/ML VIAL 0.5 MG IV ×2 (20:20→21:00)
--- NOTE | 2024-03-01 22:13 | PC.NURSE ---
Patient up to BSC with 2 assists. Difficult to get her to understand that she needed to sit on the BSC. Finally sat after urinating on floor. Returned to cart with 2 assists.
== END 2024-03-01 22:45 | disposition short-term general hospital (02) ==
PROVIDERS: Emergency Medicine; Emergency Provider Emergency Medicine; PCP Family Medicine
DX: R41.82 Altered mental status, unspecified (principal); Z87.891 Personal history of nicotine dependence
CPT/HCPCS: 36415; 70450; 80053; 81003; 83605; 83735; 85025; 85610; 93005; 96361; 96374; 96376; 99285; J2060

== ENCOUNTER 2024-03-10 14:46 | Outpatient (REF) | payer MEDICARE, OTHER, SELFPAY ==
[2024-03-10 15:07] LABS: Basophils Absolute Auto 0.1 10^3/uL (0.0-0.1); Eosinophils Absolute Auto 0.2 10^3/uL (0.0-0.7); Eosinophils Percent Auto 1.9 % (0.9-7.0); Hematocrit 42.5 % (36.0-48.0); Hemoglobin 13.3 g/dL (12.0-16.0); Immature Granulocytes Abs Auto 0.04 10^3/uL (0.00-0.03); Immature Granulocytes Pct Auto 0.4 % (0.0-0.5); Lymphocytes Absolute Auto 1.3 10^3/uL (1.2-3.8); Lymphocytes Percent Auto 12.2 % (20.5-60.0); Mean Corpuscular HGB Conc 31.3 g/dL (29.9-35.2); Mean Corpuscular Volume 95.9 fL (81.0-99.0); Mean Platelet Volume 11.5 fL (9.5-13.5); Monocytes Absolute Auto 0.7 10^3/uL (0.3-0.8); Monocytes Percent Auto 6.9 % (1.7-12.0); Neutrophils Percent Auto 77.6 % (43.0-75.0); Platelet Count 289 10^3/uL (150-450); Red Blood Count 4.43 10^6/uL (4.20-5.40); Red Cell Distribution Width 16.6 % (11.0-15.0); White Blood Count 10.3 10^3/uL (4.0-11.0)
[2024-03-10 15:35] LABS: Anion Gap 14.5; BUN Creatinine Ratio 13.3; Calcium 9.7 mg/dL (8.5-10.1); Carbon Dioxide 24.9 mmol/L (21.0-32.0); Chloride 112 mmol/L (98-107); Estimated GFR (African America 30 (>=60 mL/min/1.73m^2); Estimated GFR (Non-African Ame 25 (>=60 mL/min/1.73m^2); Glucose 140 mg/dL (74-106); Potassium 3.4 mmol/L (3.5-5.1); Sodium 148 mmol/L (136-145)
== END 2024-03-10 14:47 | disposition home or self-care (01) ==
LOC: LAB 14:46
PROVIDERS: PCP Family Medicine
DX: A87.9 Viral meningitis, unspecified (principal)
CPT/HCPCS: 36415; 80048; 85025

== ENCOUNTER 2024-03-13 16:29 | Outpatient (REF) | payer MEDICARE, OTHER, SELFPAY ==
[2024-03-13 16:43] LABS: Estimated GFR (African America 47 (>=60 mL/min/1.73m^2); Estimated GFR (Non-African Ame 39 (>=60 mL/min/1.73m^2)
== END 2024-03-13 16:30 | disposition home or self-care (01) ==
LOC: LAB 16:29
PROVIDERS: PCP Family Medicine
DX: G03.9 Meningitis, unspecified (principal)
CPT/HCPCS: 36415; 82565; 84520

== ENCOUNTER 2024-04-22 09:57 | Emergency (ER) | payer MEDICARE, OTHER, SELFPAY ==
[2024-04-22] VITALS (15 sets, daily range): BP systolic 123–140; BP diastolic 76–80; PULSE 81–96; TEMP 36.4; O2SAT 95–98; BMI 32.2
--- NOTE | 2024-04-22 10:10 | XR_ITS ---
The [address] [address] Patient Name: AARON JJ MRN: [id number] date: 1945 Sex: F Assigned Patient Location: ER Current Patient Location: ER Accession/Order Number: [id number] Exam Date: 04/22/2024 10:55 Report Date: 04/22/2024 11:09 At the request of: NATALIIA CRISOSTOMO Procedure: XR chest 1V EXAMINATION: XR chest 1V HISTORY: chest pain COMPARISON: XR chest 03/21/2023 FINDINGS: LUNGS: Small linear opacity within lower right lung. VASCULATURE: No increased pulmonary vasculature. PLEURA: No pneumothorax, effusion, or pleural thickening. CARDIAC: No cardiomegaly or cardiac silhouette abnormality. MEDIASTINUM: No visible mass or adenopathy. BONES: No fracture or visible bone lesion. OTHER: Negative. XR/XR chest 1V IMPRESSION: 1. Trace amount right basilar discoid atelectasis versus infiltrates. Electronically authenticated by: EHSAN MILLER Date: 04/22/2024 11:09
--- NOTE | 2024-04-22 10:10 | ECG_ITS ---
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
--- NOTE | 2024-04-22 10:14 | ED.CHESTPAI1 ---
HPI - Chest Pain General Chief Complaint: Chest Pain Stated Complaint: CHEST PAINS Time Seen by Provider: 04/22/24 10:10 Source: patient Mode of arrival: ambulance Limitations: no limitations History of Present Illness HPI narrative: Patient presented to the emergency department for evaluation of chest pain. Patient states that she is at the halfway, she says about 9:00 she noted an episode of chest pain, lasting approximately 10 to 15 minutes, felt like an aching hurting sensation of the left side of her chest. No radiation. Nothing made it worse. States that she sat up, and that seemed to move her breathing around naked and go away. States that she initially wanted to refuse EMS, and refused to be seen and taken in. Patient states that she is completely asymptomatic. Was not having any nausea, vomiting, sweating at the time. No diaphoresis. States that she had no complaints patient is asymptomatic at this time Related Data Home Medications ?Medication ?Instructions ?Recorded ?Confirmed multivitamin 1 tab PO DAILY 10/26/22 02/04/24 omeprazole 40 mg capsule,delayed 40 mg PO DAILY 10/26/22 04/22/24 release calcium carbonate (Calcium 600) 600 mg PO DAILY 03/21/23 04/22/24 meloxicam 15 mg tablet 7.5 mg PO DAILY 03/21/23 04/22/24 baclofen 10 mg tablet 5 mg PO Q12H PRN muscle spasm 07/19/23 04/22/24 acetaminophen 325 mg tablet 650 mg PO Q6H PRN pain 08/30/23 04/22/24 amlodipine 2.5 mg tablet 5 mg PO DAILY 08/30/23 04/22/24 aspirin 81 mg tablet,delayed 81 mg PO DAILY 08/30/23 04/22/24 release glucosamine sulfate 500 mg tablet 500 mg PO BID 08/30/23 04/22/24 (Glucosamine) oxycodone-acetaminophen 5 mg-325 1 tab PO TID PRN pain 08/30/23 04/22/24 mg tablet (Percocet) albuterol sulfate 90 mcg/actuation 2 puff inhalation Q4H PRN 12/28/23 04/22/24 aerosol inhaler shortness of breath or wheezing buspirone 10 mg tablet 10 mg PO BID 12/28/23 04/22/24 baclofen 10 mg tablet 10 mg PO BID PRN pain 03/01/24 03/01/24 cholecalciferol (vitamin D3) 50 2,000 unit PO DAILY 03/01/24 04/22/24 mcg (2,000 unit) tablet (Vitamin D3) trospium 20 mg tablet 20 mg PO DAILY 03/01/24 04/22/24 Previous Rx's ?Medication ?Instructions ?Recorded gabapentin 300 mg capsule 300 mg PO TID #270 caps 06/07/23 nortriptyline 25 mg capsule 25 mg PO DAILY #90 caps 10/17/23 gabapentin 300 mg capsule 300 mg PO TID #90 caps 02/25/24 oxycodone-acetaminophen 5 mg-325 1 tab PO TID PRN pain #90 tabs 02/25/24 mg tablet (Percocet) methylprednisolone 4 mg tablets in 4 mg PO DAILY shingles #21 ea 02/27/24 a dose pack (Medrol (Wilfred)) tobramycin 0.3 %-dexamethasone 1 drp ophthalmic (eye) Q6H 02/27/24 0.05 % eye drops,suspension shingles 7 days #5 mL (Tobradex ST) naloxone 4 mg/actuation nasal 4 mg intranasal Q2M PRN opioid 03/27/24 spray (Narcan) overdose #1 ea oxycodone-acetaminophen 5 mg-325 1 tab PO TID PRN pain #90 tabs 03/27/24 mg tablet (Percocet) Allergies Allergy/AdvReac Type Severity Reaction Status Date / Time No Known Drug Allergies Allergy Verified 04/22/24 09:59 Review of Systems ROS Narrative Negative unless otherwise stated in the [facility] Medical History (Updated 04/22/24 @ 12:52 by Gustabo Clarke MD) Metabolic encephalopathy ?G93.41 - Metabolic encephalopathy (ICD-10) COPD (chronic obstructive pulmonary disease) ?J44.9 - Chronic obstructive pulmonary disease, unspecified (ICD-10) GERD (gastroesophageal reflux disease) ?K21.9 - Gastro-esophageal reflux disease without esophagitis (ICD-10) Chronic pain ?G89.29 - Other chronic pain (ICD-10) Anxiety ?F41.9 - Anxiety disorder, unspecified (ICD-10) HTN (hypertension) ?I10 - Essential (primary) hypertension (ICD-10) Chronic prescription opiate use ?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 (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) Shoulder arthritis ?M19.019 - Primary osteoarthritis, unspecified shoulder (ICD-10) Cervical spondylosis ?M47.812 - Spondylosis without myelopathy or radiculopathy, cervical region (ICD-10) Surgical History History of lumpectomy of left breast ?Z98.890 - Other specified postprocedural states (ICD-10) History of back surgery ?Z98.890 - Other specified postprocedural states (ICD-10) History of hysterectomy ?Z90.710 - Acquired absence of both cervix and uterus (ICD-10) Family History Mother Family history of cancer Father Family history of stroke Grandfather Family history of stroke Social History Within the past year, how often did you have a drink containing alcohol: never Score interpretation: A score less than 3 is consistent with normal alcohol consumption. Smoking status: Former smoker Non-prescribed substance use: denies use Previous occupational history: retired Highest level of school completed/degree received: high school graduate Are you now , , , , never or living with a partner: Little interest or pleasure in doing things: not at all Feeling down, depressed, or hopeless: not at all Feel stressed/tense/nervous/anxious/difficulty sleeping: not at all Do you think of yourself as: straight/heterosexual Gender Identity: female Exam Narrative Exam Narrative: General: NAD, AAOx3, no distress Respiratory: respiratory effort normal, speaks in full sentences, no tripod position, no accessory muscle use. Lungs clear to auscultation without rhonchi, wheezes, rales Cardiac: Regular rate and rhythm, no edema, regular s1/s2, no m/g/r Abdomen: Soft, ND/NT. No evidence of fluid wave. No pulsatile masses on exam, rebound tenderness, Koch sign or pain over Mcburney's point. Constitutional Vital Signs, click to edit/add: Last Vital Signs Temp 97.5 F L 04/22/24 09:59 Pulse 95 H 04/22/24 12:00 Resp 18 04/22/24 12:00 BP 123/76 04/22/24 11:07 Pulse Ox 96 04/22/24 12:00 O2 Del Method Room Air 04/22/24 10:33 Course Vital Signs Vital signs: Vital Signs Temperature 97.5 F L 04/22/24 09:59 Pulse Rate 91 H 04/22/24 09:59 Respiratory Rate 16 04/22/24 09:59 Blood Pressure 140/80 04/22/24 09:59 Pulse Oximetry 97 04/22/24 09:59 Oxygen Delivery Method Room Air 04/22/24 09:59 Temperature 97.5 F L 04/22/24 09:59 Pulse Rate 95 H 04/22/24 12:00 Respiratory Rate 18 04/22/24 12:00 Blood Pressure 123/76 04/22/24 11:07 Pulse Oximetry 96 04/22/24 12:00 Oxygen Delivery Method Room Air 04/22/24 10:33 MDM - Chest Pain MDM Narrative Medical decision making narrative: Old T wave inversion noted in lead III Pt who presents for chest pain. Patient on exam was well appearing, with normal cardiorespiratory exam. Patient underwent EKG at arrival without evidence of STEMI or acute disease. ASA was given prior to arrival . Patient underwent CXR without pneumonia, pneumothorax or other acute cardiopulmonary disease. 2 sets of troponins were negative. Workup is complete and within normal limits. I considered pulmonary embolism, aortic dissection and other serious cardiopulmonary etiologies of chest pain, however at this time history and physical, imaging, are not suggestive of this at this time. Patient does have an elevated heart score, her and her daughter at bedside. She states she did not even want to come in to begin with, she definitely does not want to stay in the hospital. Given lack of significant risk factors, lab or ekg abnormalities, and pts ability for close fu with their pcp in the next 1-2 days for reeval and potential stress testing at that time, I feel pt is stable for dc. Offered inpatient admission/observation to pt, but shared decision making was done in the ED and pt has close pcp follow up. Has an appointment tomorrow with her doctor as well. I discussed with them the anemia as well as SOLO, acute on chronic for both. Advanced guidance has been given. Vss, pex is benign at this time. Pt to fu with pcp 1-2 days for reeval, rter should sx worsen, persist or become worrysome in any way. Pt expressed understanding and agreement with plan of care at this time. Will fu as planned. Pt stable for discharge. Lab Data Labs: Lab Results 04/22/24 04/22/24 Range/Units 10:24 12:14 WBC 7.9 (4.0-11.0) 10^3/uL RBC 3.84 L (4.20-5.40) 10^6/uL Hgb 11.9 L (12.0-16.0) g/dL Hct 37.9 (36.0-48.0) % MCV 98.7 (81.0-99.0) fL MCH 31.0 (26.7-34.0) pg MCHC 31.4 (29.9-35.2) g/dL RDW 16.3 H (11.0-15.0) % Plt Count 379 (150-450) 10^3/uL MPV 10.8 (9.5-13.5) fL Neut % (Auto) 57.7 (43.0-75.0) % Lymph % (Auto) 23.6 (20.5-60.0) % Stewart % (Auto) 7.4 (1.7-12.0) % Eos % (Auto) 9.3 H (0.9-7.0) % Baso % (Auto) 1.4 (0.2-2.0) % Neut # (Auto) 4.6 (1.4-6.5) 10^3/uL Lymph # (Auto) 1.9 (1.2-3.8) 10^3/uL Stewart # (Auto) 0.6 (0.3-0.8) 10^3/uL Eos # (Auto) 0.7 (0.0-0.7) 10^3/uL Baso # (Auto) 0.1 (0.0-0.1) 10^3/uL Abs Immat Gran (auto) 0.05 H (0.00-0.03) 10^3/uL Imm/Tot Granulo (auto) 0.6 H (0.0-0.5) % PT 10.2 (9.0-11.6) sec INR 0.96 Sodium 142 (136-145) mmol/L Potassium 4.9 (3.5-5.1) mmol/L Chloride 107 (98-107) mmol/L Carbon Dioxide 28.4 (21.0-32.0) mmol/L Anion Gap 11.5 BUN 28.0 H (7.0-18.0) mg/dL Creatinine 1.61 H (0.55-1.02) mg/dL Est GFR ( Amer) 38 L (>=60 mL/min/1.73m^2) Est GFR (Non-Af Amer) 31 L (>=60 mL/min/1.73m^2) BUN/Creatinine Ratio 17.4 Glucose 98 (74-106) mg/dL Calcium 9.3 (8.5-10.1) mg/dL Troponin I High Sens 7.1 7.3 (4.0-51.3) pg/mL Discharge Plan Discharge Chief Complaint: Chest Pain Clinical Impression: Chest pain, Anemia, SOLO (acute kidney injury) Patient Disposition: Home, Self-Care Time of Disposition Decision: 12:51 Condition: Good Prescriptions / Home Meds: No Action baclofen 10 mg tablet 5 mg PO Q12H PRN (Reason: muscle spasm) amlodipine 2.5 mg tablet 5 mg PO DAILY glucosamine sulfate [Glucosamine] 500 mg tablet 500 mg PO BID Rx Instructions: administer with meals acetaminophen 325 mg tablet 650 mg PO Q6H PRN (Reason: pain) aspirin 81 mg tablet,delayed release (DR/EC) 81 mg PO DAILY oxycodone-acetaminophen [Percocet] 5-325 mg tablet 1 tab PO TID PRN (Reason: pain) cholecalciferol (vitamin D3) [Vitamin D3] 50 mcg (2,000 unit) tablet 2,000 unit PO DAILY trospium 20 mg tablet 20 mg PO DAILY Rx Instructions: administer on an empty stomach at HS baclofen 10 mg tablet 10 mg PO BID PRN (Reason: pain) Rx Instructions: 1-3 times a day omeprazole 40 mg capsule,delayed release(DR/EC) 40 mg PO DAILY multivitamin Tablet 1 tab PO DAILY gabapentin 300 mg capsule 300 mg PO TID Qty: 270 0RF meloxicam 15 mg tablet 7.5 mg PO DAILY calcium carbonate [Calcium 600] 600 mg calcium (1,500 mg) tablet 600 mg PO DAILY nortriptyline 25 mg capsule 25 mg PO DAILY Qty: 90 0RF albuterol sulfate 90 mcg/actuation HFA aerosol inhaler 2 puff INHALATION Q4H PRN (Reason: shortness of breath or wheezing) buspirone 10 mg tablet 10 mg PO BID oxycodone-acetaminophen [Percocet] 5-325 mg tablet 1 tab PO TID PRN (Reason: pain) Qty: 90 0RF gabapentin 300 mg capsule 300 mg PO TID Qty: 90 0RF oxycodone-acetaminophen [Percocet] 5-325 mg tablet 1 tab PO TID PRN (Reason: pain) Qty: 90 0RF naloxone [Narcan] 4 mg/actuation spray,non-aerosol 4 mg intranasal Q2M PRN (Reason: opioid overdose) Qty: 1 0RF Rx Instructions: spray 1 dose into ONE nostril; alternate nostrils w each dose until help arrives Tobradex ST 0.3-0.05 % drops,suspension 1 drp ophthalmic (eye) Q6H 7 Days Qty: 5 0RF methylprednisolone [Medrol (Wilfred)] 4 mg tablets,dose pack 4 mg PO DAILY Qty: 21 0RF Rx Instructions: disp one pack taper as directed Print Language: Kiswahili Instructions: Chest Pain (ED), Acute Kidney Injury (DC), Chronic Kidney Disease Diet (DC), Anemia (ED) Additional Instructions: Follow-up with your PCP in the next 1 to 2 days. Return to the emergency department should symptoms worsen or become worrisome in any way. Referrals: Tierra Newell MD [Primary Care Provider] - 1 week
[2024-04-22 10:37] LABS: Basophils Absolute Auto 0.1 10^3/uL (0.0-0.1); Basophils Percent Auto 1.4 % (0.2-2.0); Eosinophils Absolute Auto 0.7 10^3/uL (0.0-0.7); Eosinophils Percent Auto 9.3 % (0.9-7.0); Hematocrit 37.9 % (36.0-48.0); Hemoglobin 11.9 g/dL (12.0-16.0); Immature Granulocytes Abs Auto 0.05 10^3/uL (0.00-0.03); Immature Granulocytes Pct Auto 0.6 % (0.0-0.5); Lymphocytes Absolute Auto 1.9 10^3/uL (1.2-3.8); Lymphocytes Percent Auto 23.6 % (20.5-60.0); Mean Corpuscular HGB Conc 31.4 g/dL (29.9-35.2); Mean Corpuscular Volume 98.7 fL (81.0-99.0); Mean Platelet Volume 10.8 fL (9.5-13.5); Monocytes Absolute Auto 0.6 10^3/uL (0.3-0.8); Monocytes Percent Auto 7.4 % (1.7-12.0); Neutrophils Absolute Auto 4.6 10^3/uL (1.4-6.5); Neutrophils Percent Auto 57.7 % (43.0-75.0); Platelet Count 379 10^3/uL (150-450); Red Blood Count 3.84 10^6/uL (4.20-5.40); Red Cell Distribution Width 16.3 % (11.0-15.0); White Blood Count 7.9 10^3/uL (4.0-11.0)
[2024-04-22] MEDS: ASPIRIN 81 MG TAB.CHEW 324 MG PO (10:37)
[2024-04-22 10:46] LABS: INR 0.96; Prothrombin Time 10.2 sec (9.0-11.6)
[2024-04-22 10:49] LABS: Anion Gap 11.5; BUN Creatinine Ratio 17.4; Calcium 9.3 mg/dL (8.5-10.1); Carbon Dioxide 28.4 mmol/L (21.0-32.0); Chloride 107 mmol/L (98-107); Estimated GFR (African America 38 (>=60 mL/min/1.73m^2); Estimated GFR (Non-African Ame 31 (>=60 mL/min/1.73m^2); Glucose 98 mg/dL (74-106); Potassium 4.9 mmol/L (3.5-5.1); Sodium 142 mmol/L (136-145); Troponin I High Sensitivity 7.1 pg/mL (4.0-51.3)
[2024-04-22 12:39] LABS: Troponin I High Sensitivity 7.3 pg/mL (4.0-51.3)
== END 2024-04-22 13:30 | disposition home or self-care (01) ==
PROVIDERS: Emergency Provider Emergency Medicine; PCP Family Medicine
DX: R07.9 Chest pain, unspecified (principal); N17.9 Acute kidney failure, unspecified; D64.9 Anemia, unspecified; Z90.710 Acquired absence of both cervix and uterus; Z87.891 Personal history of nicotine dependence
CPT/HCPCS: 36415; 71045; 80048; 84484; 85025; 85610; 93005; 99285

== ENCOUNTER 2024-05-15 12:31 | Outpatient (OUT) | payer MEDICARE, SELFPAY ==
--- OUTSIDE RECORDS SUMMARY | 2024-05-15 12:43 | XMS_ITS | CCD ---
Author Organization [facility] Care Team Providers Care Director Career Name Role Phone Unavailable Primary Care Provider JEREMIAH Arnold Primary Care Physician BRENT MALDONADO Consulting Unavailable LAKSHMIPATHY ., NARGUERREROATH Admitting Chelly vailable LAKSHMIPATHY ., BARBARA Attending [...] REED, DR JEREMIAH Poole Primary Care Unavailable ISMONA .ANNA Consulting Unavailable ANIRUDH BARAHONA Consulting Unavailable ISAC [...] ., NARENDRANATH Attending Chelly vailable LAKSHMIPATHY ., ARUNENDKENNAATH Admitting Chelly vailable DEREK, DR JEREMIAH Poole [...] Primary Care Unavailable BRENT LONG Consulting Unavailable BRADYEBROYER, DR EHSAN Haskins Consulting Unavailable LAKSHMIPATHY ., BARBARA Attending Chelly vailable LAKSHMIPATHY ., NARTAMIKA Admitting Chelly vailable REED, DR JEREMIAH Poole [...] Unavailable Jeremiah Reed Unavailable Ray Fofana Unavailable CHRISTIANO MALDONADO Attending Unavailable CHRISTIANO MALDONADO Attending Unavailable CHRISTIANO MALDONADO Attending Unavailable Giedraitis , Andrius Vytautwilliam Attending Unavailable Giedraitis , Andrius Vytautwilliam Attending Unavailable Giedraitis , Andrius Vytautwilliam Attending Unavailable Giedraitis , Andrius Vytautas Attending Unavailable Giedraitis , Andrius Vytautwilliam Attending Unavailable Giedraitis , Andrius Vytautas Attending Unavailable Giedraitis , Andrius Vytautas Attending Unavailable Giedraitis , Andrius Vytautwilliam Attending Unavailable Jeremiah Reed MD Primary Care Provider [phone] Jeremiah Reed MD Primary Care Provider Elder Garcia APRN Emergency Provider Jarad Vargas DO Emergency Provider Rosendo Law MD Admit Provider Rosendo Law MD Attending Provider Ashli Bartlett MD Other Provider Ray Fofana MD Other Provider Pamella Avitia APRN Other Provider Johnnie Jean DO Other Provider Sung Craig MD Other Provider MIAH, BRENDA E Attending Unavailable MIAH, BRENDA E Attending Unavailable COOK, Cayden P Admitting Unavailable COOK, Cayden P Attending Unavailable COOK, Cayden P Referring Unavailable COOK, Cayden P Admitting Unavailable COOK, Cayden P Attending Unavailable COOK, Cayden P Referring Unavailable MIAH, BRENDA E Admitting Unavailable MIAH, BRENDA E Attending Unavailable MIAH, BRENDA E Admitting Unavailable MIAH, BRENDA E Attending Unavailable MIAH, BRENDA E Attending Unavailable MAIH, BRENDA E Attending Unavailable MATHEW, Alexandro R Attending Unavailable MIAH, BRENDA E Attending Unavailable MIAH, BRENDA E Referring Unavailable MIAH, BRENDA E Attending Unavailable MIAH, BRENDA E Attending Unavailable MIAH, BRENDA E Attending Unavailable Jeremiah Reed MD Primary Care Provider Elder Garcia Admitting Unavailable Elder Garcia Attending Unavailable Jeremiah Reed Primary Care Unavailable Jeremiah Reed Primary Care Unavailable Ani, Rosendo P Admitting Unavailable Ani Rosendo P Attending Unavailable Ashli Bartlett Consulting Unavailable Ray Fofana Consulting Unavailable Pamella Avitia Consulting Unavailable Johnnie Jean Jr Consulting UnavailSung Ornelas Consulting Unavaila ble Allergies Allergy Classification Reported Allergen(s) Allergy Type Date of Onset Reaction(s) Facility (7 sources) patient allergy list reviewed by nurse or physicia Propensity to adverse reactions 9 Comment:Done [facility] Other (7 sources) Allergies Reconciled Propensity to adverse reactions Unknown [facility] Other (2 sources) Other Allergy to substance 0 [facility] (1 source) Adhesive Tape Drug allergy (disorder) 4 [facility] Repository Medications Current Medications Medication Drug Class(es) Dates Sig (Normalized) Sig (Original) 8 hr acetaminophen 650 mg extended release oral tablet (12 sources) Start: 03-12-2024 take 1 tablet by mouth every twelve hours Acetaminophen (Pain Relief (Acetaminophen)) 650 mg tablet extended release Active 650 MG PO Every 12 hours March 11, 2024 11:00pm Start: 03-02-2024 End: 03-07-2024 take 1 tablet by mouth every six hours as needed for pain and pain 500 mg, oral, Every 6 hours PRN, moderate pain - pain scale 4-6, severe pain - pain scale 7-10, Starting on Sun03/02/24 at 1940, For 4 doses Start: 04-13-2023 take 2 tablets by mo uth every six hours as needed for pain acetaminophen 325 mg Tab 650 mg = 2 tab(s), Oral, q6hr, PRN Pain, Refills(s) 0 Start Date: 04/13/23 Status: Ordered Start: 05-04-2020 End: 03-12-2024 take 1 tablet by mouth every four hours as needed for pain Acetaminophen 500 mg Tablet Discontinued 500 MG PO Q4H as needed for Pain 180 May 04, 2020 12:00am March 12, 2024 10:14am acetaminophen 325 mg / oxyCODONE hydrochloride 5 mg oral tablet (20 sources) Opioid Agonist Start: 03-12-2024 End: 04-02-2024 take 1 tablet by mouth three times daily as needed for pain Oxycodone-Acetaminophen 5-325 mg tablet Active 1 TAB PO Three times daily as needed for pain 9 3 April 02, 2024 Start: 03-07-2024 End: 03-07-2024 1 tablet, oral, Once as need ed, severe pain - pain scale 7-10, Starting on Sun03/07/24 at 0148, For 1 dose, Look-alike/sound-alike medication - verify indication for use. Start: 03-05-2024 take 1 tablet by buffy th once daily 1 tablet, oral, Nightly, First dose on Sun03/05/24 at 2230, Look-alike/sound-alike medication - verify indication for use. Start: 03-05-2024 End: 03-05-2024 take 1 tablet by mouth once 1 tablet, oral, Once, On Sun03/05/24 at 0245, For 1 dose, Look-alike/sound-alike medication - verify indication for use. Start: 08-21-2023 take 1 tablet by buffy th twice daily as needed oxyCODONE-acetaminophen (Percocet) 5-325 MG tablet Take 1 tablet by mouth 2 (two) times a day as needed 08/21/2023 Active Start: 04-13-2020 End: 05-04-2020 Oxycodone-Acetaminophen 5-32 5 mg Tablet Discontinued 1 TAB PO every 4 to 5 hours as needed for Pain 0 April 13, 2020 1:35pm May 04, 2020 9:36am Start: 04-09-2020 End: 04-13-2020 take 1 tablet by mouth twice daily as needed for pain Oxycodone-Acetaminophen 5-325 mg Tablet Discontinued 1 TAB PO Twice daily as needed for Pain April 09, 2020 12:00am April 13, 2020 1:35pm Start: 04-09-2020 End: 04-10-2020 take 1 tablet by mouth every eight hours as needed for pain Oxycodone-Acetaminophen 5-325 mg Tablet Discontinued 1 TAB PO Q8H as needed for Pain April 09, 2020 12:00am April 10, 2020 12:09am Start: 02-18-2019 take 1 tablet by buffy th every twelve hours as needed for pain acetaminophen-oxycodone 325 mg-2.5 mg oral tablet 1 tab(s), Oral, q12hr as needed for pain, Refill(s) 0 Start Date: 02/18/19 Status: Ordered oxyCODONE-acetam inophen (PERCOCET) 5-325 mg per tablet Take 1 tablet by mouth 3 (three) times a day. Max Daily Amount: 3 tablets Active acyclovir (ZOVIRAX) 705 mg in sodium chloride 0.9 % 250 mL IVPB (1 source) Start: 03-02-2024 705 mg (rounde d from 706 mg = 10 mg/kg 70.6 kg Adjusted weight), intravenous, at 264 mL/hr, Administer over 60 Minutes, Every 12 hours, First dose on 03/02/24 at 0430, VESICANT (YELLOW), Indication: HSV/VZV infection of [employer] [id number] 200 actuat albuterol 0.09 mg/actuat metered dose inhaler (10 sources) beta2-Adrenergic Agonist Start: 03-12-2024 Albuterol Sulfate 90 mcg/actuation HFA aerosol inhaler Active 1 INH INHALATION Every 6 hours March 11, 2024 11:00pm Start: 03-02-2024 take 2.5 mg by inhal ation every four hours as needed for wheezing take 2 puff(s) by in halation every four hours as needed for wheezing albuterol (PROVENTIL HFA;VENTOLIN HFA) 90 mcg/actuation inhaler Indications: exercise-induced bronchospasm prevention Inhale 2 puffs every 4 (four) hours as needed for wheezing Indications: exercise-induced bronchospasm prevention. Active take 2 puff(s) by mo uth every four hours as needed albuterol HFA 90 mcg/act inhaler INHALE 2 PUFFS BY MOUTH EVERY 4 HOURS NEEDED FOR SHORTNESS OF BREATH Active amLODIPine 5 mg oral tablet (20 sources) Dihydropyridine Calcium Channel Harlan Start: 03-31-2024 take 1 tablet by mouth once daily Amlodipine 5 mg tablet Active 10 MG PO Daily March 31, 2024 12:00am TAKE 1 TABLET BY MOUTH EVERY DAY FOR 30 DAYS Start: 03-02-2024 take 5 mg by mouth o nce daily 5 mg, oral, Daily, First dose on 03/02/24 at 0900, Look-alike/sound-alike medication - verify indication for use. Avoid grapefruit juice. Start: 10-16-2023 End: 03-31-2024 take 1 tablet by mouth once daily Amlodipine 5 mg tablet Discontinued 0 .ROUTE .COMPLEX 90 February 12, 2024 9:56am March 31, 2024 8:24am TAKE 1 TABLET BY MOUTH EVERY DAY FOR 30 DAYS Start: 07-17-2023 End: 10-16-2023 take 1 tablet by mouth once daily Amlodipine 5 mg tablet Discontinued 5 MG PO Daily October 15, 2023 11:00pm October 16, 2023 2:33pm Start: 04-09-2020 End: 10-16-2023 take 1 tablet by mouth once daily in the morning Amlodipine 10 mg Tablet Discontinued 10 MG PO Every morning May 04, 2020 12:00am October 16, 2023 2:23pm Start: 02-11-2019 take 2 tablets by mo [facility] once daily amLODIPine 2.5 mg Tab 5 mg = 2 tab(s), Oral, Daily, # 90 tab(s), Refills(s) 0 Start Date: 02/11/19 Status: Ordered take 1 tablet by [facility] every twenty-four hours amLODIPine Besylate 5 MG 1 tablet Orally Once a day for 30 days Active Ocuvite (13 sources) Vitamin C Start: 02-03-2021 Ocuvite Oral, Daily, Refill(s) 0 Start Date: 02/03/21 Status: Ordered aspirin 81 mg delayed release oral tablet (20 sources) Platelet Aggregation Inhibitor, Nonsteroidal Anti-inflammatory Drug Start: 04-13-2023 take 1 tablet by mouth once daily Aspirin 81 mg tablet,delayed release (DR/EC) Active 81 MG PO Daily March 11, 2024 11:00pm baclofen 10 mg oral tablet (20 sources) gamma-Aminobutyric Acid-ergic Agonist Start: 03-31-2024 take 1 tablet by mouth twice daily Baclofen 10 mg tablet Active 10 MG PO Twice daily March 31, 2024 12:00am Start: 03-12-2024 take 2 tablets by mo [facility] three times daily Baclofen 5 mg tablet Active 10 MG PO Three times daily March 11, 2024 11:00pm Start: 03-12-2024 take 1 tablet by [facility] twice daily Baclofen 5 mg tablet Active 5 MG PO Twice daily March 11, 2024 11:00pm Start: 06-05-2023 BACLOFEN 10 MG TABLET BACLOFEN 10 MG TABLET Start Date: 06/05/23 Status: Ordered Start: 03-31-2021 take 5 mg by mouth t hree times daily baclofen 10 mg Tab 5 mg = 0.5 tab(s), Oral, TID, Refills(s) 0 Start Date: 03/31/21 Status: Ordered Start: 05-04-2020 End: 03-12-2024 take 1 tablet by mouth three times daily as needed for muscle spasms Baclofen 10 mg Tablet Discontinued 10 MG PO Three times daily as needed for Muscle Spasm 90 May 04, 2020 12:00am March 12, 2024 10:18am Start: 04-09-2020 End: 05-04-2020 take 1 tablet by mouth twice daily Baclofen 10 mg Tablet Discontinued 10 MG PO Twice daily April 09, 2020 12:00am May 04, 2020 9:36am take 0.5 tablet by m out three times daily as needed for muscle spasms baclofen (LIORESAL) 10 mg tablet Take 0.5 tablets (5 mg total) by mouth 3 (three) times a day as needed for muscle spasms. Active busPIRone hydrochloride 10 mg oral tablet (20 sources) Start: 03-31-2024 take 1 tablet by mouth twice daily Buspirone 10 mg tablet Active 10 MG PO Twice daily March 31, 2024 12:00am TAKE 1 TABLET BY MOUTH TWICE A DAY Start: 03-13-2024 End: 03-31-2024 take 1 tablet by mouth twice daily Buspirone 10 mg tablet Discontinued 0 .ROUTE .COMPLEX 180 March 13, 2024 3:23pm March 31, 2024 8:24am TAKE 1 TABLET BY MOUTH TWICE A DAY Start: 03-12-2024 End: 03-13-2024 take 1 tablet by mouth twice daily Buspirone 10 mg tablet Discontinued 10 MG PO Twice daily March 11, 2024 11:00pm March 13, 2024 3:23pm Start: 03-02-2024 take 10 mg by mouth twice stephan y 10 mg, oral, 2 times daily, First dose on 03/02/24 at 0900, Look-alike/sound-alike medication - verify indication for use. Avoid grapefruit juice. Start: 02-03-2021 take 1 tablet by buffy th in the morning busPIRone (Buspar) 10 MG tablet Take 10 mg by mouth in the morning and 10 mg before bedtime. 06/07/2023 Active calcium carbonate 1500 mg oral tablet (7 sources) Start: 03-12-2024 take 1 tablet by mouth once daily Calcium Carbonate 600 mg calcium (1,500 mg) tablet Active 600 MG PO Daily March 11, 2024 11:00pm Start: 03-02-2024 500 mg, oral, Daily with breakfast, First dose on 03/02/24 at 0800, Ordered as elemental calcium. 500 mg elemental calcium = 1250 mg calcium carbonate take 1 tablet by buffy th once daily at breakfast calcium carbonate (OS-RAYMON) 600 mg elemental (1,500 mg) tablet Take 1 tablet (600 mg total) by mouth daily with breakfast. Active calcium citrate 950 mg oral tablet (11 sources) Start: 08-28-2023 calcium (as ca lcium citrate) 200 mg oral tablet 950 mg = 1 tab(s), Oral, BID, Refills(s) 0 Start Date: 08/28/23 Status: Ordered Start: 06-21-2022 take 1 mg by mouth twice daily calcium (as calcium citrate) 200 mg oral tablet mg tab(s), Oral, BID, Refills(s) 0 Start Date: 06/21/22 Status: Ordered cholecalciferol 0.05 mg oral capsule (10 sources) Vitamin D Start: 03-12-2024 take 1 capsule by mouth once daily Cholecalciferol (Vitamin D3) 50 mcg (2,000 unit) capsule Active 50 MCG PO Daily March 11, 2024 11:00pm Start: 05-04-2020 End: 03-12-2024 take 1 tablet by mouth once daily Cholecalciferol (Vitamin D3) 25 mcg (1,000 unit) Tablet Discontinued 25 MCG PO Daily May 04, 2020 12:00am March 12, 2024 10:18am take 1 capsule by [facility] in the morning cholecalciferol, vitamin D3, 2,000 units capsule Take 1 capsule (2,000 Units total) by mouth in the morning. Active chondroitin sulfates 400 mg / glucosamine hydrochloride 500 mg oral tablet (3 sources) take 1 tablet by mouth in the morning glucosamine-chondroitin 500-400 mg tablet Take 1 tablet by mouth in the morning and 1 tablet before bedtime. Active chondroitin sulfates 400 mg / glucosamine sulfate 500 mg / methylsulfonylmethane 200 mg oral tablet (3 sources) Star t: 02-13 take 1 tablet by mouth twice daily Glucosamine Lab-Haejscmvue-Yfa 500-400-200 mg tablet Active 1 TAB PO Twice daily March 11, 2024 11:00pm ciprofloxacin 500 mg oral tablet (3 sources) Quinolone Antimicrobial Star t: 09-12 Cipro 500 mg Tab 500 mg = 1 tab(s), Oral, BID, Take twice daily x5 days starting the day prior to the procedure, # 10 tab(s), Refills(s) 0, Pharmacy: [facility]/pharmacy #[id number], 165, cm, 09/26/23 15:44:00 EDT, Height/Length Dosing, 91, kg, 09/26/23 15:44:00 EDT, Weight Dosing Start Date: 10/09/23 Status: Ordered Start: 06-11-2023 Cipro 500 mg T ab See Instructions, Take 1 tab day prior to procedure and 1 tab day of procdure - afterwards, # 2 tab(s), Refills(s) 0, Pharmacy: [facility]/pharmacy #[id number], 165, cm, 06/05/23 12:57:00 EST, Height/Length Dosing, 87, kg, 06/05/23 12:57:00 EST, Weight Dosing Start Date: 06/11/23 Status: Ordered dexamethasone 1 mg/ml / tobramycin 3 mg/ml ophthalmic suspension (6 sources) Aminoglycoside Antibacterial, Corticosteroid Start: 03-31-2024 take 1 drop(s) into the eye(s) every six hours Tobramycin-Dexamethasone 0.3-0.1 % drops,suspension Active 1 DROPS EYE-BOTH Q6H March 31, 2024 12:00am Start: 03-02-2024 take 1 drop(s) into the eye(s) twice daily 1 drop, left eye, 2 times daily, First dose on 03/02/24 at 0215, Look-alike/sound-alike medication - verify indication for use. tobramycin-dexAM ETHasone (TOBRADEX ST) 0.3-0.05 % drops,suspension Instill to eye. Active gabapentin 300 mg oral capsule (20 sources) Anti-epileptic Agent Start: 03-31-2024 take 2 capsules by mouth three times daily Gabapentin 300 mg capsule Active 600 MG PO Three times daily March 31, 2024 12:00am Start: 04-13-2023 take 1 capsule by mo [facility] three times daily Gabapentin 300 mg capsule Active 300 MG PO Three times daily March 31, 2024 12:00am Start: 02-11-2019 End: 03-12-2024 take 1 tablet by mouth three times daily Gabapentin 600 mg Tablet Discontinued 600 MG PO Three times daily May 04, 2020 12:00am March 12, 2024 10:16am glucagon (rdna) 1 mg injection (1 source) Antihypoglycemic Agent Start: 03-02-2024 1 mg, i ntramuscular, As needed, low blood sugar, blood glucose less than 70 mg/dL and unconscious or NPO without IV access., Starting on 03/02/24 at 0031, If conscious and not NPO, immediately follow with meal tray or high protein (7Grams) snack if tray not available. If NPO, initiate IV 5% Dextrose/Water at 100 mL/hr and contact prescriber for additional orders. If blood glucose is not greater than 70 mg/dL after initial treatment, repeat treatment. 50 ml glucose 500 mg/ml prefilled syringe (2 sources) Start: 03-02-2024 15 g, oral, As needed, low blood sugar, blood glucose less than 70 mg/dL, Starting on Sun03/02/24 at 0031, If patient conscious and taking PO. If blood glucose is not greater than 70 mg/dL after initial treatment, repeat treatment. Start: 03-02-2024 25 mL, intrave nous, As needed, low blood sugar, blood glucose less than 70 mg/dL and unconscious or NPO with IV access, Starting on Sun03/02/24 at 0031, Push over 1-3 minutes STAT. If conscious and not NPO, immediately follow with meal tray or high protein (7 grams) snack if tray not available. If NPO, initiate 5% dextrose in water at 100 mL/hr and contact prescriber for additional orders. If blood glucose is not greater than 70 mg/dL after initial treatment, repeat treatment. VESICANT (RED) Warning: HYPERTONIC solution. Handicap Placard (7 sources) Start: 11-25-[address] HandiCap Placard , as directed # 1, 11/25/2019, No Refill. Active as directed for 0 duration 5 years *Reorder from [facility] for eRx and Interaction Alerts* Nov, Active heparin sodium, porcine 10 unt/ml injectable solution (8 sources) Unfractionated Heparin, Anti-coagulant Start: 03-05-2024 heparin lock flush, porcine, 10 unit/mL injection Infuse 1-5 mL (10-50 Units total) into a venous catheter as needed (line care per nursing agency protocol.). 1 mL 03/05/2024 Active Start: 03-05-2024 heparin lock f lush, porcine, injection 100 unit/mL solution Infuse 1-5 mL (100-500 Units total) into a venous catheter as needed (line care per nursing agency protocol.). 1 mL 03/05/2024 Active Start: 03-04-2024 5,000 Units, s ubcutaneous, Every 8 hours scheduled, First dose (after last modification) on Sun03/04/24 at 1400, Notify prescriber if INR greater than 1.9, hemoglobin less than 10 mg/dL, aPTT greater than 40 seconds, and/or platelet count less than 100,000/mm Look-alike/sound-alike medication - verify indication for use. Observe for bleeding. Start: 03-02-2024 End: 03-03-2024 5,000 Units, subcutaneous, E very 8 hours scheduled, First dose on 03/02/24 at 0045, Notify prescriber if INR greater than 1.9, hemoglobin less than 10 mg/dL, aPTT greater than 40 seconds, and/or platelet count less than 100,000/mm Look-alike/sound-alike medication - verify indication for use. Observe for bleeding. hydrOXYzine hydrochloride 25 mg oral tablet (1 source) Antihistamine Start: 03-03-2024 take 25 mg by mouth three times daily as needed for anxiety 25 mg, oral, 3 times daily PRN, anxiety, Starting on 03/03/24 at 1035, Look-alike/sound-alike medication - verify indication for use. melatonin 5 mg oral tablet (14 sources) Start: 03-02-2024 take 5 mg by mouth once daily 5 mg, oral, Nightly, First dose on 03/02/24 at 2330 Start: 02-03-2021 melatonin Once a day (at bedtime), Refills(s) 0 Start Date: 02/03/21 Status: Ordered meloxicam 15 mg oral tablet (20 sources) Nonsteroidal Anti-inflammatory Drug Start: 03-31-2024 take 7.5 mg by mouth once daily Meloxicam 15 mg tablet Active 7.5 MG PO Daily March 31, 2024 12:00am Start: 04-12-2022 meloxicam (Mob ic) 15 MG tablet 08/28/2023 Active 24 hr mirabegron 50 mg extended release oral tablet (3 sources) beta3-Adrenergic Agonist Start: 08-28-2023 End: 08-22-2024 take 1 tablet by mouth once daily Myrbetriq 50 mg oral tablet, extended release 50 mg = 1 tab(s), Oral, Daily, X 30 day(s), # 30 tab(s), Refills(s) 11, Pharmacy: [facility]/pharmacy #[id number], 165, cm, 08/28/23 15:03:00 EDT, Height/Length Dosing, 90, kg, 08/28/23 15:03:00 EDT, Weight Dosing Start Date: 08/28/23 Stop Date: 08/22/24 Status: Ordered Start: 08-28-2023 End: 08-22-2024 take 1 tablet by mouth every twenty-four hours Myrbetriq 50 MG 24 hr tablet Take 50 mg by mouth 08/28/2023 08/22/2024 Active nortriptyline 25 mg oral capsule (20 sources) Tricyclic Antidepressant Start: 02-11-2019 End: 05-04-2020 take 1 capsule by mouth at bedtime nortriptyline 25 mg Cap 25 mg = 1 cap(s), Oral, Bedtime, Refills(s) 0 Start Date: 02/11/19 Status: Ordered omeprazole 40 mg delayed release oral capsule (20 sources) Proton Pump Inhibitor Start: 11-05-2023 End: 02-11-2024 Omeprazole 40 mg capsule,delayed release(DR/EC) Active 0 .ROUTE .COMPLEX February 11, 2024 3:29pm TAKE 1 CAPSULE BY MOUTH EVERY DAY 30 MINUTES BEFORE MORNING MEAL FOR 90 DAYS Start: 05-04-2020 End: 11-05-2023 take 1 capsule by mouth once daily in the morning Omeprazole 20 mg Capsule,Delayed Release(Dr/Ec) Discontinued 20 MG PO Every morning May 04, 2020 12:00am November 05, 2023 10:35am Start: 02-11-2019 End: 05-04-2020 take 1 capsule by mouth once daily omeprazole 40 mg Cap-DR 40 mg = 1 cap(s), Oral, Daily, Refills(s) 0 Start Date: 02/11/19 Status: Ordered 2 ml ondansetron 2 mg/ml injection (1 source) Serotonin-3 Receptor Antagonist Start: 03-03-2024 take 4 mg intravenously every eight hours as needed for nausea and vomiting 4 mg, intravenous, Every 8 hours PRN, nausea, vomiting, Starting on 03/03/24 at 0857, Administer over 2-5 minutes. polyethylene glycol 3350 08302 mg powder for oral solution (3 sources) Osmotic Laxative Start: 03-23-2024 Polyethylene Glycol 3350 (Miralax) 17 gram/dose powder Active 17 GM PO Twice daily as needed for constipation 238 March 23, 2024 12:00am mix into 4-8 oz. of any hot/cold/room temp. beverage; use immediately 125 ml sodium chloride 9 mg/ml prefilled syringe (9 sources) Start: 03-05-2024 sodium chloride injection Infuse 10-20 mL into a venous catheter as needed for line care (line care per nursing agency protocol.). 1 mL 03/05/2024 Active Start: 03-05-2024 take 10 mL intraveno usly every twelve hours sodium chloride 0.9 % flush 10 mL Start: 03-02-2024 End: 03-02-2024 10 mL, intravenous, Once in imaging, line care, MRI, Starting on 03/02/24 at 1644, For 1 dose Start: 03-02-2024 End: 03-03-2024 take 75 mL intravenously every hour 75 mL/hr, intravenous, Continuous, Starting on Nunda 03/02/24 at 0200, For 1 day Start: 03-02-2024 3 mL, intraven ous, Every 12 hours scheduled, First dose on 03/02/24 at 0045 Start: 03-02-2024 3 mL, intraven ous, As needed, line care, before and after each intermittent use, Starting on 03/02/24 at 0031 Start: 03-02-2024 take 25 mL intraveno usly every hour as needed 25 mL, intravenous, at 100 mL/hr, Administer over 15 Minutes, As needed, line care, line care after IVPB administration, Starting on Nunda 03/02/24 at 0031 solifenacin succinate 10 mg oral tablet (11 sources) Cholinergic Muscarinic Antagonist Start: 06-21-2022 End: 06-16-2023 take 1 tablet by mouth once daily Vesicare 10 mg Tab 10 mg = 1 tab(s), Oral, Daily, X 30 day(s), # 30 tab(s), Refills(s) 11, Pharmacy: [id number], 165, cm, 06/21/22 14:53:00 EST, Height/Length Dosing, 87, kg, 06/21/22 14:53:00 EST, Weight Dosing Start Date: 06/21/22 Stop Date: 06/16/23 Status: Ordered trospium chloride 20 mg oral tablet (9 sources) Cholinergic Muscarinic Antagonist Start: 01-24-2024 take 1 tablet by mouth twice daily Trospium 20 mg tablet Active 20 MG PO Twice daily March 11, 2024 11:00pm administer on an empty stomach Tudorza Pressair 400mcg/actuat (7 sources) Start: 04-12-2022 take 1 puff(s) by inhalation twice daily Tudorza Pressair 400mcg/actuat Tudorza Pressair 400mcg/actuat, 1 (one) Puff BID # 1, 04/12/2022, Ref. x12. Active inhalation BID *Pick strength-form from [facility] for eRX* Mar, Active Start: 04-12-2022 take 1 puff(s) by in halation twice daily Tudorza Pressair 400mcg/actuat Tudorza Pressair 400mcg/actuat, 1 (one) Puff BID # 1, 04/12/2022, Ref. x12. Active inhalation BID for 30 *Pick strength-form from [facility] for eRX* Mar, Active Vibegron (Gemtesa) 75 MG tablet (2 sources) Start: 08-28-2023 End: 08-22-2024 Vibegron (Gemtesa) 75 MG tablet Take 75 mg by mouth 08/28/2023 08/22/2024 Active vibegron 75 MG Oral Tablet [Gemtesa] (1 source) Start: 08-28-2023 End: 08-22-2024 take 1 tablet by mouth once daily Gemtesa 75 mg oral tablet 75 mg = 1 tab(s), Oral, Daily, X 30 day(s), # 30 tab(s), Refills(s) 11, Pharmacy: [facility]/pharmacy #[id number], 165, cm, 08/28/23 15:03:00 EDT, Height/Length Dosing, 90, kg, 08/28/23 15:03:00 EDT, Weight Dosing Start Date: 08/28/23 Stop Date: 08/22/24 Status: Ordered Vision Formula (7 sources) Vision Formula A ctive Completed/Discontinued Medications Medication Drug Class(es) Dates Sig (Normalized) Sig (Original) 10 ml acyclovir 50 mg/ml injection (7 sources) Herpesvirus Nucleoside Analog DNA Polymerase Inhibitor, Herpes Simplex Virus Nucleoside Analog DNA Polymerase Inhibitor, Herpes Zoster Virus Nucleoside Analog DNA Polymerase Inhibitor Start: 03-12-2024 End: 03-12-2024 Acyclovir Sodium 50 mg/mL solution Discontinued IV March 11, 2024 11:00pm March 12, 2024 10:14am Start: 03-12-2024 Acyclovir Sodi um Active IV March 12, 2024 12:00am Start: 03-05-2024 acyclovir (ZOV IRAX) 50 mg/mL injection Indications: Varicella encephalitis Infuse 17.7 mL (885 mg total) into a venous catheter every 12 (twelve) hours. End Date 03/11/2024 1 mL 03/05/2024 Active alendronic acid 70 mg oral tablet (4 sources) Bisphosphonate Start: 04-09-2020 End: 05-04-2020 take 1 tablet by mouth every week Alendronate 70 mg tablet Discontinued 70 MG PO Q7D April 09, 2020 12:00am May 04, 2020 9:36am C,E,Zinc,Copper 04-[id number] (Ocuvite Adult 50 Plus) 250-5-1 mg Capsule (8 sources) Start: 05-04-2020 End: 03-12-2024 C,E,Zinc,Copper 60-[id number] (Ocuvite Adult 50 Plus) 250-5-1 mg Capsule Discontinued 250 CAP PO Daily May 04, 2020 9:23am March 12, 2024 10:17am Start: 05-04-2020 C,E,Zinc,Coppe r [id number] (Ocuvite Adult 50 Plus) 250-5-1 mg Capsule Active 250 CAP PO Daily May 04, 2020 10:23am Start: 04-10-2020 End: 05-04-2020 C,E,Zinc,Copper 71-[id number] ut (Ocuvite Adult 50 Plus) 250-5-1 mg Capsule Discontinued 250 CAP PO Daily April 10, 2020 12:00am May 04, 2020 9:23am Start: 04-10-2020 End: 05-04-2020 C,E,Zinc,Copper 58-[id number] ut (Ocuvite Adult 50 Plus) 250-5-1 mg Capsule Discontinued 250 CAP PO Daily April 10, 2020 1:00am May 04, 2020 10:23am cephalexin 500 mg oral capsule (7 sources) Cephalosporin Antibacterial Start: 03-23-2024 End: 04-02-2024 take 1 capsule by mouth twice daily Cephalexin 500 mg capsule Discontinued 500 MG PO Twice daily March 23, 2024 12:00am April 02, 2024 10:48am Start: 04-13-2020 End: 05-04-2020 take 1 capsule by mouth twice daily Cephalexin 500 mg capsule Discontinued 500 MG PO Twice daily 4 April 13, 2020 12:00am May 04, 2020 9:36am diclofenac sodium 0.01 mg/mg topical gel (5 sources) Nonsteroidal Anti-inflammatory Drug Start: 05-04-2020 End: 03-12-2024 apply 2 g topically three times daily Diclofenac Sodium 1 % Gel Discontinued 2 GM TOPICAL Three times daily May 04, 2020 12:00am March 12, 2024 10:18am Start: 05-04-2020 2 g, topical, 3 times daily PRN, pain, Starting on 03/02/24 at 1941, Use dosing card to measure dose. Apply to shoulder. diphenhydrAMINE hydrochloride 25 mg / naproxen sodium 220 mg oral tablet (4 sources) Histamine-1 Receptor Antagonist, Nonsteroidal Anti-inflammatory Drug Start: 04-10-2020 End: 04-13-2020 take 1 tablet by mouth at bedtime as needed Naproxen-Diphenhydramine (Aleve Pm) 220-25 mg Tablet Discontinued 1 TAB PO Bedtime as needed for Insomnia April 10, 2020 12:00am April 13, 2020 1:35pm ergocalciferol 1.25 mg oral capsule (4 sources) Provitamin D2 Compound Start: 05-04-2020 End: 03-12-2024 Ergocalciferol (Vitamin D2) 1,250 mcg (50,000 unit) Capsule Discontinued 1250 MCG PO Fr@0900 5 May 04, 2020 12:00am March 12, 2024 10:18am gadoteridoL (PROHANCE) injection 9.09 mmol 18.18 mL (1 source) Start: 03-02-2024 End: 03-02-2024 9.09 mmol (0.1 mmol/kg 90.9 kg), intravenous, Once in imaging, contrast, MRI, Starting on 03/02/24 at 1644, For 1 dose, VESICANT (RED), Indications: magnetic resonance imaging glucosamine 500 mg oral tablet (20 sources) Start: 03-12-2024 End: 03-12-2024 take 1 tablet by mouth once daily Glucosamine Hcl 500 mg tablet Discontinued 500 MG PO Daily March 11, 2024 11:00pm March 12, 2024 10:24am administer with a meal Start: 08-28-2023 take 1 capsule by mo uth twice daily glucosamine 500 mg Cap 500 mg = 1 cap(s), Oral, BID, Refills(s) 0 Start Date: 08/28/23 Status: Ordered Start: 04-10-2020 End: 05-04-2020 take 2 tablets by mouth once daily Glucosamine Sulfate (Glucosamine) 500 mg Tablet Discontinued 1000 MG PO Daily April 10, 2020 12:00am May 04, 2020 9:36am Start: 02-11-2019 take 500 mg by mouth twice corinna ly glucosamine 500 mg, Oral, BID, Refills(s) 0 Start Date: 02/11/19 Status: Ordered take 2 capsules by m outh once daily Glucosamine 500 MG 2capsule with a meal Orally Once a day Active take 2 capsules by m outh once daily Glucosamine 500 MG 2capsule with a meal Orally Once a day Active ibuprofen 200 mg oral tablet (4 sources) Nonsteroidal Anti-inflammatory Drug Start: 04-10-2020 End: 04-13-2020 take 1 tablet by mouth every six hours as needed Ibuprofen 200 mg Tablet Discontinued 200 MG PO Q6H as needed for Insomnia April 10, 2020 12:00am April 13, 2020 1:35pm methylPREDNISolone 4 mg oral tablet (7 sources) Corticosteroid Start: 04-09-2020 End: 04-10-2020 Methylprednisolone 4 mg Tablets,Dose Pack Discontinued 0 MG PO per package directions April 09, 2020 12:00am April 10, 2020 12:07am Start: 04-09-2020 End: 04-10-2020 Methylprednisolone Discontin ued 0 MG PO per package directions April 09, 2020 1:00am April 10, 2020 1:07am nabumetone 750 mg oral tablet (4 sources) Nonsteroidal Anti-inflammatory Drug Start: 04-09-2020 End: 04-10-2020 take 1 tablet by mouth every twelve hours as needed for pain Nabumetone 750 mg Tablet Discontinued 750 MG PO Q12H as needed for Pain April 09, 2020 12:00am April 10, 2020 12:08am oxyCODONE hydrochloride 5 mg oral tablet (4 sources) Opioid Agonist Start: 05-04-2020 End: 03-12-2024 take 1 tablet by mouth every four hours as needed for pain Oxycodone 5 mg Tablet Discontinued 5 MG PO Every 4 hours as needed for Pain Scale 6 - 10 40 7 May 04, 2020 March 12, 2024 10:17am Tobramycin-Dexameth asone 0.3-0.05 % drops,suspension (5 sources) Start: 03-25-2024 End: 03-31-2024 take 1 drop(s) into the eye(s) every six hours Tobramycin-Dexame thasone 0.3-0.05 % drops,suspension Discontinued 1 DROPS EYE-BOTH Every 6 hours March 25, 2024 4:32pm March 31, 2024 8:22am Start: 03-12-2024 End: 03-25-2024 take 1 drop(s) into the eye(s) every six hours Tobramycin-Dexamethasone 0.3-0.05 % drops,suspension Discontinued 1 DROPS EYE-BOTH Every 6 hours March 11, 2024 11:00pm March 25, 2024 4:32pm Start: 03-12-2024 take 1 drop(s) into the eye(s) every six hours Tobramycin-Dexamethasone 0.3-0.05 % drops,suspension Active 1 DROPS EYE-BOTH Every 6 hours March 11, 2024 11:00pm valACYclovir 1000 mg oral tablet (1 source) Herpesvirus Nucleoside Analog DNA Polymerase Inhibitor, Herpes Simplex Virus Nucleoside Analog DNA Polymerase Inhibitor, Herpes Zoster Virus Nucleoside Analog DNA Polymerase Inhibitor End: 03-07-2024 take 1 tablet by mouth three times daily valACYclovir (VALTREX) 1000 mg tablet Take 1 tablet (1,000 mg total) by mouth 3 (three) times a day. 03/07/2024 Discontinued (Stop Taking at Discharge) Problems Active Problems Problem Classification Problem Date Documented Date Episodic/Chronic Abdominal hernia (1 source) Diaphragmatic hernia without obstruction or gangrene; Translations: [DIAPH HERNIA W/O OBST/GANGRENE] Onset: 3 Episodic Abdominal pain (13 sources) Abdominal tenderness 02-03-2021 Episodic Acute and unspecified renal failure (5 sources) Acute kidney failure, unspecified; Translations: [Acute renal failure syndrome] Onset: 2 04-25-2023 Episodic Comment on above: Problem List clean-u p per request of Phys. EHR Cmte Administrative/social admission (4 sources) Other reduced mobility; Translations: [Impaired mobility and activities of daily living] 04-25-2023 Episodic Comment on above: Problem List clean-u p per request of Phys. EHR Cmte Anxiety disorders (8 sources) Anxiety; Translations: [Anxiety] Onset: 3 Chronic Cancer of ovary (4 sources) Malignant tumor of ovary; Translations: [Malignant neoplasm of unspecified ovary] 04-25-2023 Chronic Comment on above: rightProblem List cl margaret-up per request of Phys. EHR Cmte Chronic kidney disease (15 sources) Chronic kidney disease stage 3; Translations: [Chronic kidney disease, stage 3 (moderate)] 03-12-2024 Chronic Chronic kidney disease (1 source) Chronic kidney disease; Translations: [Chronic kidney disease, stage 3 unspecified] Onset: 4 Chronic obstructive pulmonary disease and bronchiectasis (14 sources) Centrilobular emphysema; Translations: [Chronic obstructive pulmonary disease with (acute) exacerbation] Onset: 2 Chronic Diseases of white blood cells (1 source) Elevated white blood cell count, unspecified; Translations: [ELEVATED WHITE BLOOD CELL COUNT UNS] Onset: 2 Chronic Diverticulosis and diverticulitis (4 sources) Diverticular disease; Translations: [Diverticulosis of intestine, part unspecified, without perforation or abscess without bleeding] 04-25-2023 Chronic Comment on above: Problem List clean-u p per request of Phys. 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 EHR Cmte Essential hypertension (20 sources) Essential (primary) hypertension; Translations: [Hypertensive disorder] Onset: 2 Chronic Comment on above: Problem List clean-u p per request of Phys. EHR Cmte Fluid and electrolyte disorders (5 sources) Dehydration; Translations: [Dehydration] Onset: 4 03-31-2024 Episodic Gastrointestinal hemorrhage (1 source) Melena; Translations: [Melena] Onset: 4 Episodic Genitourinary symptoms and ill-defined conditions (20 sources) Dysuria; Translations: [Increased frequency of urination] Onset: 2 02-03-2021 Episodic Comment on above: Problem List clean-u p per request of Phys. EHR Cmte Hypertension with complications and secondary hypertension (8 sources) Hypertensive chronic kidney disease with stage 1 through stage 4 chronic kidney disease, or unspecified chronic kidney disease; Translations: [Hypertensive renal disease] Onset: 2 Chronic Inflammation; infection of eye (except that caused by tuberculosis or sexually transmitteddisease) (2 sources) Herpes zoster conjunctivitis; Translations: [Zoster conjunctivitis] 03-10-2024 Episodic Malaise and fatigue (3 sources) Other fatigue; Translations: [Weakness] Onset: 2 Episodic Meningitis (except that caused by tuberculosis or sexually transmitted disease) (15 sources) Viral meningitis; Translations: [Viral meningitis, unspecified] Onset: 4 03-02-2024 Episodic Mood disorders (1 source) Depressive disorder; Translations: [Depression, unspecified] Onset: 3 Chronic Mycoses (1 source) Onychomycosis; Translations: [Tinea unguium] 01-20-2024 Episodic Nausea and vomiting (1 source) Vomiting, unspecified; Translations: [Vomiting, unspecified] Onset: 4 Episodic Nutritional deficiencies (4 sources) Vitamin D deficiency, unspecified; Translations: [VITAMIN D DEFICIENCY UNSPECIFIED] Onset: 2 Chronic Osteoarthritis (1 source) Unspecified osteoarthritis, unspecified site; Translations: [UNSPECIFIED OSTEOARTHRITIS UNS SITE] Onset: 2 Chronic Osteoporosis (4 sources) Osteoporosis; Translations: [Age-related osteoporosis without current pathological fracture] 04-25-2023 Chronic Comment on above: Problem List clean-u p per request of Phys. EHR Cmte Other aftercare (1 source) Long-term current use of drug therapy; Translations: [Other termite helper (current) drug therapy] Onset: 3 Episodic Other connective tissue disease (1 source) Other muscle spasm; Translations: [OTHER MUSCLE SPASM] Onset: 3 Episodic Other connective tissue disease (4 sources) Pain in lower limb; Translations: [Pain in left leg] 04-25-2023 Episodic Comment on above: Problem List clean-u p per request of Phys. EHR Cmte Other connective tissue disease (1 source) Pain of toes of bilateral feet; Translations: [Pain in right toe(s)] 01-20-2024 Episodic Other diseases of bladder and urethra (8 sources) Detrusor overactivity; Translations: [Overactive bladder] Onset: 3 Chronic Other diseases of bladder and urethra (13 sources) Overactive bladder 03-31-2021 Chronic Other diseases of bladder and urethra (4 sources) Male urethral stricture; Translations: [Unspecified urethral stricture, male, unspecified site] Onset: 3 Episodic Other diseases of bladder and urethra (13 sources) Traumatic urethral stricture 02-03-2021 Episodic Other diseases of bladder and urethra (14 sources) Urethral stricture; Translations: [Other urethral stricture, female] Onset: 4 02-11-2019 Episodic Other diseases of kidney and ureters (7 sources) Hyperparathyroidism due to renal insufficiency; Translations: [Secondary hyperparathyroidism of renal origin] Chronic Other endocrine disorders (7 sources) Primary hyperparathyroidism; Translations: [Primary hyperparathyroidism] Chronic Other endocrine disorders (7 sources) Hyperparathyroidism; Translations: [Hyperparathyroidism, unspecified] Chronic Other fractures (4 sources) Multiple pelvic fractures; Translations: [Multiple fractures of pelvis without disruption of pelvic ring, initial encounter for closed fracture] 04-25-2023 Episodic Comment on above: Problem List clean-u p per request of Phys. EHR Cmte Other fractures (4 sources) Multiple closed fractures of pelvis with disruption of pelvic cantwell; Translations: [Multiple fractures of pelvis with stable disruption of pelvic ring, initial encounter for closed fracture] 04-25-2023 Episodic Comment on above: Problem List clean-u p per request of Phys. EHR Cmte Other fractures (4 sources) Closed fracture sacrum; Translations: [Unspecified fracture of sacrum, initial encounter for closed fracture] 04-25-2023 Episodic Comment on above: Problem List clean-u p per request of Phys. EHR Cmte Other gastrointestinal disorders (3 sources) Constipation; Translations: [Constipation, unspecified] 03-23-2024 Episodic Other injuries and conditions due to external causes (4 sources) Fracture pain; Translations: [Other injury of unspecified body region, initial encounter] 04-25-2023 Episodic Comment on above: Problem List clean-u p per request of Phys. EHR Cmte Other nervous system disorders (1 source) Polyneuropathy, unspecified; Translations: [POLYNEUROPATHY UNSPECIFIED] Onset: 3 Chronic Other nervous system disorders (2 sources) Other chronic pain; Translations: [OTHER CHRONIC PAIN] Onset: 2 Chronic Other nervous system disorders (1 source) Polyneuropathy; Translations: [Polyneuropathy, unspecified] Onset: 3 Chronic Other nervous system disorders (4 sources) Chronic pain; Translations: [Other chronic pain] 04-25-2023 Chronic Comment on above: Problem List clean-u p per request of Phys. EHR Cmte Other nervous system disorders (4 sources) Disorder of brain; Translations: [Encephalopathy, unspecified] 04-14-2020 Chronic Other nervous system disorders (2 sources) Metabolic encephalopathy; Translations: [Metabolic encephalopathy] 03-31-2024 Chronic Other nervous system disorders (3 sources) Metabolic encephalopathy; Translations: [Metabolic encephalopathy] Onset: 4 03-31-2024 Chronic Other nervous system disorders (4 sources) Toxic metabolic encephalopathy; Translations: [Toxic metabolic encephalopathy] 04-25-2023 Episodic Comment on above: Problem List clean-u p per request of Phys. EHR Cmte Other non-traumatic joint disorders (5 sources) Pain [...] Translations: [Chronic pain] Episodic Residual codes; unclassified (2 sources) Altered mental status; Translations: [Altered mental status, unspecified] Onset: 3 Episodic Residual codes; unclassified (4 sources) Tobacco user; Translations: [Tobacco use] 04-25-2023 Episodic Comment on above: Problem List clean-u p per request of Phys. EHR Cmte Residual codes; unclassified (4 sources) Patient encounter status; Translations: [Encounter for prophylactic measures, unspecified] 04-25-2023 Episodic Comment on above: Problem List clean-u p per request of Phys. EHR Cmte Residual codes; unclassified (2 sources) Altered mental status, unspecified; Translations: [Altered mental status] Onset: 4 04-03-2024 Episodic Secondary malignancies (4 sources) Secondary malignant neoplasm of bone; Translations: [Secondary malignant neoplasm of bone] 04-25-2023 Chronic Comment on above: Problem List clean-u p per request of Phys. EHR Cmte Spondylosis; intervertebral disc disorders; other back problems (12 sources) Spondylosis without myelopathy or radiculopathy, cervical region; Translations: [Spondylosis without myelopathy or radiculopathy, lumbar region] Onset: 2 Chronic Spondylosis; intervertebral disc disorders; other back problems (20 sources) Backache; Translations: [Cervicalgia] Onset: 2 02-11-2019 Episodic Comment on above: Problem List clean-u p per request of Phys. EHR Cmte Sprains and strains (8 sources) Strain of muscle(s) and tendon(s) of the rotator cuff of right shoulder, subsequent encounter; Translations: [Strain of muscle(s) and tendon(s) of the rotator cuff of right shoulder, initial encounter] Onset: 3 Episodic Substance-related disorders (13 sources) Cigarette smoker 10-21-2019 Chronic Thyroid disorders [...] EXPOS COVID-19] Onset: 2 Urinary tract infections (13 sources) Chronic cystitis 10-21-2019 Chronic Urinary tract infections (20 sources) Acute urinary tract infection; Translations: [Urinary tract infectious disease] Onset: 4 02-03-2021 Episodic Comment on above: Problem List clean-u p per request of Phys. EHR Cmte Past or Other Problems Problem Classification Problem Date Documented Da te Episodic/Chronic Cardiac dysrhythmias (1 source) Tachycardia, unspecified; Translations: [TACHYCARDIA UNSPECIFIED] Onset: 11-24-2021 Episodic E Codes: Fall (1 source) Fall on same level from slipping, tripping and stumbling with subsequent striking against other object, initial encounter; Translations: [FALL SAME LVL SLIP STRK OTH OBJ INT] Onset: 01-09-2022 Episodic Lymphadenitis (1 source) Localized enlarged lymph nodes; Translations: [LOCALIZED ENLARGED LYMPH NODES] Onset: 02-25-2022 Episodic Mood disorders (2 sources) Mood disorders Onset: 03-02-2024 03-02-2024 Other aftercare (1 source) Other termite helper (current) drug therapy; Translations: [OTH [facility] CURRENT DRUG THERAPY] Onset: 01-09-2022 Episodic Other [...] OF NICOTINE DEPEND] Onset: 01-09-2022 Episodic Unclassified (13 sources) Finding of sensation of bladder 02-03-2021 Unclassified (1 source) LOW BACK PAIN, UNSPECIFIED; Translations: [LOW BACK PAIN, UNSPECIFIED] Onset: 05-11-2022 Results Test Name Value Interpretation Reference Range Facility 36on 04-07-2024 36 Sorry, forgot to put in, she was cancelled because she's still in rehab [facility] 36 Patient's eye is sti ll bothering her from the shingles, Fernanda Landa would like a call back at [phone], can leave a detailed message [facility] Telephoneon 04-07-2024 Telephone [phone] Roberto Lewis 1945 F Date Provider Department Center 04/07/2024 [facility] No family history on file [facility] Alanine aminotransferase [En zymatic activity/volume] in Serum or PlasmaOrdered By: Rosendo Law on 04-01-2024 ALT [Catalytic activity/Vol] Alanine aminotransferase [Enzymatic activity/volume] in Serum or Plasma [facility] Albumin [Mass/volume] in Ser um or Plasma by Bromocresol green (BCG) dye binding methoOrdered By: Rosendo Law on 04-01-2024 Albumin BCG dye [Mass/Vol] Albumin [Mass/volume] in Serum or Plasma by Bromocresol green (BCG) dye binding metho 3.5-5.7 [facility] Alkaline phosphatase [Enzyma tic activity/volume] in Serum or PlasmaOrdered By: Rosendo Law on 04-01-2024 ALP [Catalytic activity/Vol] Alkaline phosphatase [Enzymatic activity/volume] in Serum or Plasma 34-104 [facility] Aspartate aminotransferase [ Enzymatic activity/volume] in Serum or PlasmaOrdered By: Rosendo Law on 04-01-2024 AST [Catalytic activity/Vol] Aspartate aminotransferase [Enzymatic activity/volume] in Serum or Plasma 13-39 [facility] Basophils Auto (Bld) [#/Vol] Ordered By: Rosendo Law on 04-01-2024 Basophils (Bld) [#/Vol] Automated basophil count 0.0-0.2 [facility] Basophils/100 WBC Auto (Bld) Ordered By: Rosendo Law on 04-01-2024 Basophils/100 WBC (Bld) Automated basophil % . [facility] Bilirubin.total [Mass/volume ] in Serum or PlasmaOrdered By: Rosendo Law on 04-01-2024 Bilirubin [Mass/Vol] Bilirubin.total [Mass/volume] in Serum or Plasma 0.3-1.0 [facility] Calcium [Mass/volume] in Ser um or PlasmaOrdered By: Rosendo Law 04-01-2024 Calcium [Mass/Vol] Calcium [Mass/volume ] in Serum or Plasma 8.6-10.3 [facility] Carbon dioxide, total [Moles /volume] in Serum or PlasmaOrdered By: Rosendo Law 04-01-2024 CO2 [Moles/Vol] Carbon dioxide, tota l [Moles/volume] in Serum or Plasma 21.0-31.0 [facility] Chloride [Moles/volume] in S alison or PlasmaOrdered By: Rosendo Law on 04-01-2024 Chloride [Moles/Vol] Chloride [Moles/vol ume] in Serum or Plasma 98-107 [facility] Complete Blood Count Auto Di ffon 04-01-2024 Basophils (Bld) [#/Vol] 0.1 10*3/uL Normal 0.0-0.2 [facility] Comment on above: Result Comment: PERF ORMED BY: [place] [address] PATHOLOGIST [employer] CHUY OLIVERA M.D. Performed By: #### C BC, CMP #### [address] Basophils/100 WBC (Bld) 1.3 % Normal . [facility] Comment on above: Performed By: #### C BC, CMP #### [address] Eosinophils (Bld) [#/Vol] 0.7 10*3/uL High 0.0-0.45 [facility] Comment on above: Performed By: #### C BC, CMP #### [address] Eosinophils/100 WBC (Bld) 8.7 % Normal . [facility] Comment on above: Performed By: #### C BC, CMP #### [address] Erythrocyte distribution width (RBC) [Ratio] 18.4 % High 11.9-15.3 [facility] Comment on above: Performed By: #### C BC, CMP #### [address] Hematocrit (Bld) [Volume fraction] 42.0 % Normal 34.0-46.4 [facility] Comment on above: Performed By: #### C BC, CMP #### [address] Hemoglobin (Bld) [Mass/Vol] 13.8 g/dL Normal 11.8-15.4 [facility] Comment on above: Performed By: #### C BC, CMP #### [place] [address] [place] Lymphocytes (Bld) [#/Vol] 2.1 10*3/uL Normal 1.00-4.8 [facility] Comment on above: Performed By: #### C BC, CMP #### [address] Lymphocytes/100 WBC (Bld) 28.1 % Normal . [facility] Comment on above: Performed By: #### C BC, CMP #### [address] MCH (RBC) [Entitic mass] 30.5 pg Normal 24.7-34.3 [facility] Comment on above: Performed By: #### C BC, CMP #### [address] MCV (RBC) [Entitic vol] 92.7 fL Normal 80-100 [facility] Comment on above: Performed By: #### C BC, CMP #### [address] Mean Corpuscular HGB Conc 32.9 g/dL Normal 32.0-35.0 [facility] Comment on above: Performed By: #### C BC, CMP #### [address] Monocytes (Bld) [#/Vol] 0.7 10*3/uL Normal 0.0-0.8 [facility] Comment on above: Performed By: #### C BC, CMP #### [address] Monocytes/100 WBC (Bld) 9.3 % Normal . [facility] Comment on above: Performed By: #### C BC, CMP #### [address] Neutrophils (Bld) [#/Vol] 4.0 10*3/uL Normal 1.8-7.7 [facility] Comment on above: Performed By: #### C BC, CMP #### [address] Neutrophils/100 WBC (Bld) 52.6 % Normal . [facility] Comment on above: Performed By: #### C BC, CMP #### [address] NRBC% 0.1 /100{WBC} Normal 0-0.5 [facility] Comment on above: Performed By: #### C BC, CMP #### [address] Platelet mean volume (Bld) [Entitic vol] 9.7 fL Normal 6.3-10.7 [facility] Comment on above: Performed By: #### C BC, CMP #### [address] Platelets (Bld) [#/Vol] 233 10*3/uL Normal 150-450 [facility] Comment on above: Performed By: #### C BC, CMP #### [address] RBC (Bld) [#/Vol] 4.53 10*6/uL Normal 3.60-5.00 [facility] Comment on above: Performed By: #### C BC, CMP #### [address] WBC (Bld) [#/Vol] 7.5 10*3/uL Normal 3.8-11.6 [facility] Comment on above: Performed By: #### C BC, CMP #### [address] Comprehensive Metabolic Pane meagan 04-01-2024 Albumin [Mass/Vol] 3.5 g/dL Normal 3.5-5.7 [facility] Comment on above: Performed By: #### C BC, CMP #### [address] Albumin/Globulin [Mass ratio] 1.5 {ratio} Normal [facility] Comment on above: Performed By: #### C BC, CMP #### [address] ALP [Catalytic activity/Vol] 56 U/L Normal 34-104 [facility] Comment on above: Performed By: #### C BC, CMP #### [address] ALT [Catalytic activity/Vol] 16 U/L Normal 7-52 [facility] Comment on above: Performed By: #### C BC, CMP #### [facility] [address] Anion gap [Moles/Vol] 11.7 mmol/L Normal 6.0-15.0 [facility] Comment on above: Performed By: #### C BC, CMP #### [address] AST [Catalytic activity/Vol] 16 U/L Normal 13-39 [facility] Comment on above: Performed By: #### C BC, CMP #### [place] [address] [place] Bilirubin [Mass/Vol] 0.4 mg/dL Normal 0.3-1.0 [facility] Comment on above: Performed By: #### C BC, CMP #### [place] [address] [place] Calcium [Mass/Vol] 9.6 mg/dL Normal 8.6-10.3 [facility] Comment on above: Performed By: #### C BC, CMP #### [place] [address] [place] Chloride [Moles/Vol] 107 mmol/L Normal 98-107 [facility] Comment on above: Performed By: #### C BC, CMP #### [place] [address] [place] CO2 [Moles/Vol] 26.5 mmol/L Normal 21.0-31.0 [facility] Comment on above: Performed By: #### C BC, CMP #### [address] Creatinine [Mass/Vol] 0.92 mg/dL Normal 0.60-1.20 [facility] Comment on above: Performed By: #### C BC, CMP #### [address] Creatinine Clr Calc Pharmacy 53.39 Normal [facility] Comment on above: Result Comment: PERF ORMED BY: [place] [address] PATHOLOGIST [employer] CHUY OLIVERA M.D. Performed By: #### C BC, CMP #### [address] GFR/1.73 sq M.predicted MDRD (S/P/Bld) [Vol rate/Area] mL/min/{1.73_m2} Normal [facility] Comment on above: Performed By: #### C BC, CMP #### [address] Globulin (S) [Mass/Vol] 2.3 g/dL Normal [facility] Comment on above: Performed By: #### C BC, CMP #### [address] Glucose [Mass/Vol] 82 mg/dL Normal 70-100 [facility] Comment on above: Result Comment: [place] Glucose Reference Range is dependent on time and content of last meal. Glucose of more than 200 mg/dL in a nonstressed, ambulatory subject supports the diagnosis of Diabetes Mellitus. ADA recommended reference range Performed By: #### C BC, CMP #### [address] Potassium [Moles/Vol] 4.2 mmol/L Normal 3.5-5.1 [facility] Comment on above: Performed By: #### C BC, CMP #### [address] Protein [Mass/Vol] 5.8 g/dL Low 6.4-8.9 [facility] Comment on above: Performed By: #### C BC, CMP #### [address] Sodium [Moles/Vol] 141 mmol/L Normal 136-145 [facility] Comment on above: Performed By: #### C BC, CMP #### [facility] [address] Urea nitrogen [Mass/Vol] 13 mg/dL Normal 7-25 [facility] Comment on above: Performed By: #### C BC, CMP #### [facility] [address] Creatinine [Mass/volume] in Serum or PlasmaOrdered By: Rosendo Law on 04-01-2024 Creatinine [Mass/Vol] Creatinine [Mass/v olume] in Serum or Plasma 0.60-1.20 [facility] Eosinophils Auto (Bld) [#/Vo l]Ordered By: Rosendo Law on 04-01-2024 Eosinophils (Bld) [#/Vol] Automated eosinophil count High 0.0-0.45 [facility] Eosinophils/100 WBC Auto (Bl d)Ordered By: Rosendo Law on 04-01-2024 Eosinophils/100 WBC (Bld) Automated eosinophil % . [facility] Erythrocyte distribution wid th Auto (RBC) [Ratio]Ordered By: Rosendo Law on 04-01-2024 Erythrocyte distribution width (RBC) [Ratio] Erythrocyte distribution width [Ratio] by Automated count High 11.9-15.3 [facility] Globulin Calc (S) [Mass/Vol] Ordered By: Rosendo Law on 04-01-2024 Globulin (S) [Mass/Vol] Serum globulin measurement by calculation (mass/volume) [facility] Glucose [Mass/volume] in Ser um or PlasmaOrdered By: Rosendo Law on 04-01-2024 Glucose [Mass/Vol] Glucose [Mass/volume ] in Serum or Plasma 70-100 [facility] Comment on above: ADA recommended refe rence rangeRandom Glucose Reference Range is dependent on time and content of last meal. Glucose of more than 200 mg/dL in a nonstressed, ambulatory subject supports the diagnosis of Diabetes Mellitus. Hematocrit Auto (Bld) [Volum e fraction]Ordered By: Rosendo Law on 04-01-2024 Hematocrit (Bld) [Volume fraction] Hematocrit [Volume Fraction] of Blood by Automated count 34.0-46.4 [facility] Hemoglobin [Mass/volume] in BloodOrdered By: Rosendo Law on 04-01-2024 Hemoglobin (Bld) [Mass/Vol] Hemoglobin [Mass/volume] in Blood 11.8-15.4 [facility] Leukocytes [#/volume] correc kyleigh for nucleated erythrocytes in Blood by Automated counOrdered By: Rosendo Law on 04-01-2024 WBC corrected for nucl RBC Auto (Bld) [#/Vol] Leukocytes [#/volume] corrected for nucleated erythrocytes in Blood by Automated coun 3.8-11.6 [facility] Lymphocytes Auto (Bld) [#/Vo l]Ordered By: Rosendo Law on 04-01-2024 Lymphocytes (Bld) [#/Vol] Lymphocytes [#/volume] in Blood by Automated count 1.00-4.8 [facility] Lymphocytes/100 WBC Auto (Bl d)Ordered By: Rosendo Law on 04-01-2024 Lymphocytes/100 WBC (Bld) Lymphocytes/100 leukocytes in Blood by Automated count . [facility] MCH Auto (RBC) [Entitic mass ]Ordered By: Rosendo Law on 04-01-2024 MCH (RBC) [Entitic mass] MCH [Entitic mass] by Automated count 24.7-34.3 [facility] MCHC Auto (RBC) [Mass/Vol]Or dered By: Rosendo Law on 04-01-2024 MCHC (RBC) [Mass/Vol] MCHC [Mass/volume] by Automated count 32.0-35.0 [facility] MCV Auto (RBC) [Entitic vol] Ordered By: Rosendo Law on 04-01-2024 MCV (RBC) [Entitic vol] MCV [Entitic volume] by Automated count 80-100 [facility] Monocytes Auto (Bld) [#/Vol] Ordered By: Rosendo Law on 04-01-2024 Monocytes (Bld) [#/Vol] Automated blood monocyte count 0.0-0.8 [facility] Monocytes/100 WBC Auto (Bld) Ordered By: Rosendo Law on 04-01-2024 Monocytes/100 WBC (Bld) Automated monocyte % . [facility] Neutrophils Auto (Bld) [#/Vo l]Ordered By: Rosendo Law on 04-01-2024 Neutrophils (Bld) [#/Vol] Neutrophils [#/volume] in Blood by Automated count 1.8-7.7 [facility] Neutrophils/100 WBC Auto (Bl d)Ordered By: Rosendo Law on 04-01-2024 Neutrophils/100 WBC (Bld) Automated neutrophil % . [facility] No Panel InformationOrdered By: Rosendo Law on 04-01-2024 Estimated GFR (CKD-EPI) > 60.0 mL/Min [facility] Creatinine Clearance (Chem 53.39 [facility] Nucleated erythrocytes [Pres ence] in Blood by Automated countOrdered By: Rosendo Law on 04-01-2024 Nucleated RBC Auto Ql (Bld) Nucleated erythrocytes [Presence] in Blood by Automated count 0-0.5 [facility] Platelet mean volume Auto (B ld) [Entitic vol]Ordered By: Rosendo Law on 04-01-2024 Platelet mean volume (Bld) [Entitic vol] Platelet mean volume [Entitic volume] in Blood by Automated count 6.3-10.7 [facility] Platelets Auto (Bld) [#/Vol] Ordered By: Rosendo Law on 04-01-2024 Platelets (Bld) [#/Vol] Platelets [#/volume] in Blood by Automated count 150-450 [facility] Potassium [Moles/volume] in Serum or PlasmaOrdered By: Rosendo Law on 04-01-2024 Potassium [Moles/Vol] Potassium [Moles/v olume] in Serum or Plasma 3.5-5.1 [facility] Protein [Mass/volume] in Ser um or PlasmaOrdered By: Rosendo Law on 04-01-2024 Protein [Mass/Vol] Protein [Mass/volume ] in Serum or Plasma Low 6.4-8.9 [facility] RBC Auto (Bld) [#/Vol]Ordere d By: Rosendo Law on 04-01-2024 RBC (Bld) [#/Vol] Erythrocytes [#/volu me] in Blood by Automated count 3.60-5.00 [facility] Serum or plasma albumin/glob ulin mass ratioOrdered By: Rosendo Law on 04-01-2024 Albumin/Globulin [Mass ratio] Serum or plasma albumin/globulin mass ratio [facility] Serum or plasma anion gap de terminationOrdered By: Rosendo Law on 04-01-2024 Anion gap [Moles/Vol] Serum or plasma an ion gap determination 6.0-15.0 [facility] Sodium [Moles/volume] in Ser um or PlasmaOrdered By: Rosendo Law on 04-01-2024 Sodium [Moles/Vol] Sodium [Moles/volume ] in Serum or Plasma 136-145 [facility] Urea nitrogen [Mass/volume] in Serum or PlasmaOrdered By: Rosendo Law on 04-01-2024 Urea nitrogen [Mass/Vol] Urea nitrogen [Mass/volume] in Serum or Plasma 7-25 [facility] WBC Auto (Bld) [#/Vol]Ordere d By: Rosendo Law on 04-01-2024 WBC (Bld) [#/Vol] Leukocytes [#/volume ] in Blood by Automated count 3.8-11.6 [facility] Alanine aminotransferase [En zymatic activity/volume] in Serum or PlasmaOrdered By: Jarad Vargas on 03-31-2024 ALT [Catalytic activity/Vol] Alanine aminotransferase [Enzymatic activity/volume] in Serum or Plasma 7-52 [facility] Albumin [Mass/volume] in Ser um or Plasma by Bromocresol green (BCG) dye binding methoOrdered By: Jarad Vargsa on 03-31-2024 Albumin BCG dye [Mass/Vol] Albumin [Mass/volume] in Serum or Plasma by Bromocresol green (BCG) dye binding metho 3.5-5.7 [facility] Alkaline phosphatase [Enzyma tic activity/volume] in Serum or PlasmaOrdered By: Jarad Vargas on 03-31-2024 ALP [Catalytic activity/Vol] Alkaline phosphatase [Enzymatic activity/volume] in Serum or Plasma 34-104 [facility] Appearance of UrineOrdered B y: Jarad Vargas on 03-31-2024 Appearance (U) Urine appearance Clear [facility] Aspartate aminotransferase [ Enzymatic activity/volume] in Serum or PlasmaOrdered By: Jarad Vargas on 03-31-2024 AST [Catalytic activity/Vol] Aspartate aminotransferase [Enzymatic activity/volume] in Serum or Plasma 13-39 [facility] Bacteria [Presence] in Urine by AutomatedOrdered By: Jarad Vargas on 03-31-2024 Bacteria Auto Ql (U) Bacteria [Presence] in Urine by Automated None Seen [facility] Basic Metabolic Panelon 03-14 Anion gap [Moles/Vol] 14.3 mmol/L Normal 6.0-15.0 [facility] Comment on above: Performed By: #### H S TROP, CUBLD, PTT, PT, [id number], [id number], LIPASE, TSH3, BMP, HEPATIC, CBC, CK, LACTIC ####[address] Calcium [Mass/Vol] 9.7 mg/dL Normal 8.6-10.3 [facility] Comment on above: Performed By: #### H S TROP, CUBLD, PTT, PT, [id number], [id number], LIPASE, TSH3, BMP, HEPATIC, CBC, CK, LACTIC ####[address] Chloride [Moles/Vol] 108 mmol/L High 98-107 [facility] Comment on above: Performed By: #### H S TROP, CUBLD, PTT, PT, [id number], [id number], LIPASE, TSH3, BMP, HEPATIC, CBC, CK, LACTIC ####[address] CO2 [Moles/Vol] 25.5 mmol/L Normal 21.0-31.0 [facility] Comment on above: Performed By: #### H S TROP, CUBLD, PTT, PT, [id number], [id number], LIPASE, TSH3, BMP, HEPATIC, CBC, CK, LACTIC ####[address] Creatinine [Mass/Vol] 1.17 mg/dL Normal 0.60-1.20 [facility] Comment on above: Performed By: #### H S TROP, CUBLD, PTT, PT, [id number], [id number], LIPASE, TSH3, BMP, HEPATIC, CBC, CK, LACTIC ####[place] [id number] [place] Creatinine Clr Calc Pharmacy 43.86 Normal [facility] Comment on above: Performed By: #### H S TROP, CUBLD, PTT, PT, [id number], [id number], LIPASE, TSH3, BMP, HEPATIC, CBC, CK, LACTIC ####[address] Estimated GFR 48.060 mL/Min Normal [facility] Comment on above: Performed By: #### H S TROP, CUBLD, PTT, PT, [id number], [id number], LIPASE, TSH3, BMP, HEPATIC, CBC, CK, LACTIC ####[place] [id number] [address] Glucose [Mass/Vol] 93 mg/dL Normal 70-100 [facility] Comment on above: Result Comment: [facility] Glucose Reference Range is dependent on time and content of last meal. Glucose of more than 200 mg/dL in a nonstressed, ambulatory subject supports the diagnosis of Diabetes Mellitus. ADA recommended reference range Performed By: #### H S TROP, CUBLD, PTT, PT, [id number], [id number], LIPASE, TSH3, BMP, HEPATIC, CBC, CK, LACTIC ####[address] Potassium [Moles/Vol] 3.8 mmol/L Normal 3.5-5.1 [facility] Comment on above: Performed By: #### H S TROP, CUBLD, PTT, PT, [id number], [id number], LIPASE, TSH3, BMP, HEPATIC, CBC, CK, LACTIC ####[address] Sodium [Moles/Vol] 144 mmol/L Normal 136-145 [facility] Comment on above: Performed By: #### H S TROP, CUBLD, PTT, PT, [id number], [id number], LIPASE, TSH3, BMP, HEPATIC, CBC, CK, LACTIC ####[address] Urea nitrogen [Mass/Vol] 19 mg/dL Normal 7-25 [facility] Comment on above: Performed By: #### H S TROP, CUBLD, PTT, PT, [id number], [id number], LIPASE, TSH3, BMP, HEPATIC, CBC, CK, LACTIC ####[facility] [id number] [place] [id number] [facility] Basophils Auto (Bld) [#/Vol] Ordered By: Jarad Vargas on 03-31-2024 Basophils (Bld) [#/Vol] Automated basophil count 0.0-0.2 [facility] Basophils/100 WBC Auto (Bld) Ordered By: Jarad Vargas on 03-31-2024 Basophils/100 WBC (Bld) Automated basophil % . [facility] Bilirubin Test strip Ql (U)O rdered By: Jarad Vargas on 03-31-2024 Bilirubin Ql (U) Bilirubin.total [Pre sence] in Urine by Test strip Negative [facility] Bilirubin.direct [Mass/volum e] in Serum or PlasmaOrdered By: Jarad Vargas on 03-31-2024 Bilirubin.direct [Mass/Vol] Bilirubin.direct [Mass/volume] in Serum or Plasma 0.03-0.18 [facility] Bilirubin.total [Mass/volume ] in Serum or PlasmaOrdered By: Jarad Vargas on 03-31-2024 Bilirubin [Mass/Vol] Bilirubin.total [Mass/volume] in Serum or Plasma 0.3-1.0 [facility] Blood Cultureon 03-31-2024 Bacteria identified Cx Nom (Bld) NO GROWTH 5 DAYS PERFORMED BY: [facility] [address] [facility] [place] [address] PATHOLOGIST [employer] CHUY OLIVERA M.D. Normal [facility] Comment on above: Performed By: #### H S TROP, CUBLD, PTT, PT, [id number], [id number], LIPASE, TSH3, BMP, HEPATIC, CBC, CK, LACTIC ####[place] [id number] [place] [id number] [facility] Bacteria identified Cx Nom (Bld) NO GROWTH 5 DAYS PERFORMED BY: [facility] [address] [facility] [place] [address] PATHOLOGIST [employer] CHUY OLIVERA M.D. Normal [facility] Comment on above: Performed By: #### H S TROP, CUBLD, PTT, PT, [id number], [id number], LIPASE, TSH3, BMP, HEPATIC, CBC, CK, LACTIC ####[facility] [id number] [place] [id number] [facility] CT abdomen pelvis w conon CT abdomen pelvis w con [facility] [address] [place] [address] [place] [id number] Scan Report Signed Patient: Aaron Lewis MR#: [id number] : 1945 Acct:[id number] Age/Sex: 79 / F ADM Date: 03/31/24 Loc: ER Room: Type: [facility] ER Attending Dr: Copies to: Jarad Vargas DO Ordering Provider: Jarad Vargas DO Date of Service: 03/31/24 CT/CT abdomen pelvis w con: ams lower abd/back pain ([id number]) CT/CT head/brain wo con: ams Unenhanced head CT TECHNIQUE: Contiguous axial imaging of the head. The CT exam was performed using one or more the following dose reduction techniques: Automated exposure control, adjustment of the MA and/or Kv according to patient size, or use of the iterative reconstruction technique. COMPARISON: 04/10/2020 HISTORY: Altered mental status VENTRICLES: Within normal limits ATROPHY: Similar diffuse atrophy BRAIN PARENCHYMA: Decreased density of the white matter is most consistent with chronic small vessel disease. HEMORRHAGE: None HERNIATION: No mass effect or herniation INFARCTION: No recent vascular distribution infarction is seen. EXTRA-AXIAL FLUID COLLECTIONS None MIDBRAIN: Unremarkable BELEN: Unremarkable MEDULLA: Unremarkable SINUSES: Unremarkable ORBITS: Grossly unremarkable MASTOIDS: Unremarkable BONY STRUCTURES Intact ADDITIONAL FINDINGS: CT/CT head/brain wo con IMPRESSION: No acute findings. CT Abdomen and Pelvis withcontrast TECHNIQUE: Axial imaging with 2-D reconstruction.90 cc of Isovue-300. The CT exam was performed using one or more the following dose reduction techniques: Automated exposure control, adjustment of the MA and/or Kv according to patient size, or use of the iterative reconstruction technique. COMPARISON: None History: UTI. Low back pain. LIMITATIONS: Extensive streak artifact limits assessment of the kidneys. LOWER THORAX Unremarkable LIVER: Unremarkable GALLBLADDER: No gallbladder abnormality identified. BILE DUCTS: No dilatation SPLEEN: Unremarkable PANCREAS: Unremarkable ADRENAL GLANDS: Unremarkable KIDNEYS:Bilateral nephrolithiasis measuring up to 3 mm. No hydronephrosis. AORTA: No abdominal aortic aneurysm identified. RETROPERITONEUM: No significant retroperitoneal abnormalities identified. MESENTERY:Unremarkable SMALL BOWEL: The small bowel loops are nondistended. APPENDIX: The appendix is normal. COLON: Mild constipation URINARY BLADDER: Marked distention of urinary bladder. REPRODUCTIVE SYSTEM: The uterus is absent. PNEUMOPERITONEUM: None PERITONEAL FLUID:None BONY STRUCTURES: L3-4 fusion with decompression. Multilevel lower thoracic and lumbar degenerative change old pubic rami fractures. Scoliosis. ABDOMINAL WALL: Unremarkable IMPRESSION: Marked distention of the urinary bladder. May consider Nath decompression. Otherwise no acute findings. Hiatal hernia. Basilar atelectasis. Bilateral nephrolithiasis without obstructive uropathy. Impression dictated by: Emil Martin M.D.03/31/2024 10:02 AM Dictation Location: [facility]16 Transcribed By: [facility] 03/31/24 1002 Dictated By: Emil Martin DO 03/31/24 0952 Signed By: 03/31/24 1002 Normal [facility] Calcium [Mass/volume] in Ser um or PlasmaOrdered By: Jarad Vargas on 03-31-2024 Calcium [Mass/Vol] Calcium [Mass/volume ] in Serum or Plasma 8.6-10.3 [facility] Carbon dioxide, total [Moles /volume] in Serum or PlasmaOrdered By: Jarad Vargas on 03-31-2024 CO2 [Moles/Vol] Carbon dioxide, tota l [Moles/volume] in Serum or Plasma 21.0-31.0 [facility] Chloride [Moles/volume] in S alison or PlasmaOrdered By: Jarad Vargas on 03-31-2024 Chloride [Moles/Vol] Chloride [Moles/vol ume] in Serum or Plasma High 98-107 [facility] Color Auto (U)Ordered By: [place] Vargas on 03-31-2024 Color (U) Color of Urine by Auto Yellow Fi [facility] Complete Blood Count Auto Di ffon 03-31-2024 Basophils (Bld) [#/Vol] 0.1 10*3/uL Normal 0.0-0.2 [facility] Comment on above: Result Comment: PERF ORMED BY: [facility] [place] [address] PATHOLOGIST [employer] CHUY OLIVERA M.D. Performed By: #### H S TROP, CUBLD, PTT, PT, [id number], [id number], LIPASE, TSH3, BMP, HEPATIC, CBC, CK, LACTIC ####[address] Basophils/100 WBC (Bld) 1.1 % Normal . [facility] Comment on above: Performed By: #### H S TROP, CUBLD, PTT, PT, [id number], [id number], LIPASE, TSH3, BMP, HEPATIC, CBC, CK, LACTIC ####[address] Eosinophils (Bld) [#/Vol] 0.2 10*3/uL Normal 0.0-0.45 [facility] Comment on above: Performed By: #### H S TROP, CUBLD, PTT, PT, [id number], [id number], LIPASE, TSH3, BMP, HEPATIC, CBC, CK, LACTIC ####[address] Eosinophils/100 WBC (Bld) 2.6 % Normal . [facility] Comment on above: Performed By: #### H S TROP, CUBLD, PTT, PT, [id number], [id number], LIPASE, TSH3, BMP, HEPATIC, CBC, CK, LACTIC ####[address] Erythrocyte distribution width (RBC) [Ratio] 18.1 % High 11.9-15.3 [facility] Comment on above: Performed By: #### H S TROP, CUBLD, PTT, PT, [id number], [id number], LIPASE, TSH3, BMP, HEPATIC, CBC, CK, LACTIC ####[address] Hematocrit (Bld) [Volume fraction] 40.7 % Normal 34.0-46.4 [facility] Comment on above: Performed By: #### H S TROP, CUBLD, PTT, PT, [id number], [id number], LIPASE, TSH3, BMP, HEPATIC, CBC, CK, LACTIC ####[address] Hemoglobin (Bld) [Mass/Vol] 13.3 g/dL Normal 11.8-15.4 [facility] Comment on above: Performed By: #### H S TROP, CUBLD, PTT, PT, [id number], [id number], LIPASE, TSH3, BMP, HEPATIC, CBC, CK, LACTIC ####[address] Lymphocytes (Bld) [#/Vol] 1.3 10*3/uL Normal 1.00-4.8 [facility] Comment on above: Performed By: #### H S TROP, CUBLD, PTT, PT, [id number], [id number], LIPASE, TSH3, BMP, HEPATIC, CBC, CK, LACTIC ####[address] Lymphocytes/100 WBC (Bld) 19.2 % Normal . [facility] Comment on above: Performed By: #### H S TROP, CUBLD, PTT, PT, [id number], [id number], LIPASE, TSH3, BMP, HEPATIC, CBC, CK, LACTIC ####[address] MCH (RBC) [Entitic mass] 30.4 pg Normal 24.7-34.3 [facility] Comment on above: Performed By: #### H S TROP, CUBLD, PTT, PT, [id number], [id number], LIPASE, TSH3, BMP, HEPATIC, CBC, CK, LACTIC ####[address] [address] [place] MCV (RBC) [Entitic vol] 93.5 fL Normal 80-100 [facility] Comment on above: Performed By: #### H S TROP, CUBLD, PTT, PT, [id number], [id number], LIPASE, TSH3, BMP, HEPATIC, CBC, CK, LACTIC ####[address] Mean Corpuscular HGB Conc 32.6 g/dL Normal 32.0-35.0 [facility] Comment on above: Performed By: #### H S TROP, CUBLD, PTT, PT, [id number], [id number], LIPASE, TSH3, BMP, HEPATIC, CBC, CK, LACTIC ####[address] Monocytes (Bld) [#/Vol] 0.6 10*3/uL Normal 0.0-0.8 [facility] Comment on above: Performed By: #### H S TROP, CUBLD, PTT, PT, [id number], [id number], LIPASE, TSH3, BMP, HEPATIC, CBC, CK, LACTIC ####[address] Monocytes/100 WBC (Bld) 19.18 % Normal 0.00-20.00 [facility] Comment on above: Performed By: #### H S TROP, CUBLD, PTT, PT, [id number], [id number], LIPASE, TSH3, BMP, HEPATIC, CBC, CK, LACTIC ####[address] Monocytes/100 WBC (Bld) 8.9 % Normal . [facility] Comment on above: Performed By: #### H S TROP, CUBLD, PTT, PT, [id number], [id number], LIPASE, TSH3, BMP, HEPATIC, CBC, CK, LACTIC ####[address] Neutrophils (Bld) [#/Vol] 4.7 10*3/uL Normal 1.8-7.7 [facility] Comment on above: Performed By: #### H S TROP, CUBLD, PTT, PT, [id number], [id number], LIPASE, TSH3, BMP, HEPATIC, CBC, CK, LACTIC ####[address] Neutrophils/100 WBC (Bld) 68.2 % Normal . [facility] Comment on above: Performed By: #### H S TROP, CUBLD, PTT, PT, [id number], [id number], LIPASE, TSH3, BMP, HEPATIC, CBC, CK, LACTIC ####[address] NRBC% 0.1 /100{WBC} Normal 0-0.5 [facility] Comment on above: Performed By: #### H S TROP, CUBLD, PTT, PT, [id number], [id number], LIPASE, TSH3, BMP, HEPATIC, CBC, CK, LACTIC ####[address] Platelet mean volume (Bld) [Entitic vol] 9.6 fL Normal 6.3-10.7 [facility] Comment on above: Performed By: #### H S TROP, CUBLD, PTT, PT, [id number], [id number], LIPASE, TSH3, BMP, HEPATIC, CBC, CK, LACTIC ####[address] Platelets (Bld) [#/Vol] 253 10*3/uL Normal 150-450 [facility] Comment on above: Performed By: #### H S TROP, CUBLD, PTT, PT, [id number], [id number], LIPASE, TSH3, BMP, HEPATIC, CBC, CK, LACTIC ####[address] RBC (Bld) [#/Vol] 4.36 10*6/uL Normal 3.60-5.00 [facility] Comment on above: Performed By: #### H S TROP, CUBLD, PTT, PT, [id number], [id number], LIPASE, TSH3, BMP, HEPATIC, CBC, CK, LACTIC ####[place] [id number] WBC (Bld) [#/Vol] 6.8 10*3/uL Normal 3.8-11.6 [facility] Comment on above: Performed By: #### H S TROP, CUBLD, PTT, PT, [id number], [id number], LIPASE, TSH3, BMP, HEPATIC, CBC, CK, LACTIC ####[facility] Creatine Kinaseon 03-31-2024 CK [Catalytic activity/Vol] 23 U/L Low 30-223 [facility] Comment on above: Performed By: #### H S TROP, CUBLD, PTT, PT, [id number], [id number], LIPASE, TSH3, BMP, HEPATIC, CBC, CK, LACTIC ####[place] [id number] Creatine kinase [Enzymatic a ctivity/volume] in Serum or PlasmaOrdered By: Jarad Vargas on 03-31-2024 CK [Catalytic activity/Vol] Creatine kinase [Enzymatic activity/volume] in Serum or Plasma Low 30-223 [facility] Creatinine [Mass/volume] in Serum or PlasmaOrdered By: Jarad Vargas on 03-31-2024 Creatinine [Mass/Vol] Creatinine [Mass/v olume] in Serum or Plasma 0.60-1.20 [facility] Dipstick and Microscopicon 1 05-31-2023 Appearance (U) Clear Normal Clear [facility] Comment on above: Order Comment: Name Collection Type:: Straight Catheter Performed By: #### A DDONUAPLUS, CUU #### [place] [address] [place] Bacteria,Urine None Seen Normal None Seen [facility] Comment on above: Order Comment: Name Collection Type:: Straight Catheter Performed By: #### A DDONUAPLUS, CUU #### [facility] [address] [place] [address] [place] Bilirubin,Urine Negative Normal Negative [facility] Comment on above: Order Comment: Name Collection Type:: Straight Catheter Performed By: #### A DDONUAPLUS, CUU #### [address] Color (U) Light-Yellow Normal Yellow [facility] Comment on above: Order Comment: Name Collection Type:: Straight Catheter Performed By: #### A DDONUAPLUS, CUU #### [address] Glucose Ql (U) Normal Normal Normal [facility] Comment on above: Order Comment: Name Collection Type:: Straight Catheter Performed By: #### A DDONUAPLUS, CUU #### [address] Hyaline Casts,Urine 0 [LPF] Normal 0-8 [facility] Comment on above: Order Comment: Name Collection Type:: Straight Catheter Performed By: #### A DDONUAPLUS, CUU #### [address] Ketones Ql (U) Negative Normal Negative [facility] Comment on above: Order Comment: Name Collection Type:: Straight Catheter Performed By: #### A DDONUAPLUS, CUU #### [address] Leukocyte esterase Test strip Ql (U) 2+ High Negative [facility] Comment on above: Order Comment: Name Collection Type:: Straight Catheter Performed By: #### A DDONUAPLUS, CUU #### [address] Mucus,Urine Rare Normal [facility] Comment on above: Order Comment: Name Collection Type:: Straight Catheter Result Comment: PERF ORMED BY: [place] [address] PATHOLOGIST [employer] CHUY OLIVERA M.D. Performed By: #### A DDONUAPLUS, CUU #### [address] Nitrite,Urine Negative Normal Negative [facility] Comment on above: Order Comment: Name Collection Type:: Straight Catheter Performed By: #### A DDONUAPLUS, CUU #### [address] Occult Blood,Urine Negative Normal Negative [facility] Comment on above: Order Comment: Name Collection Type:: Straight Catheter Result Comment: PERF ORMED BY: [place] [address] PATHOLOGIST [employer] CHUY OLIVERA M.D. Performed By: #### A DDONUAPLUS, CUU #### [address] pH (U) 6.0 [pH] Normal 5.0-9.0 [facility] Comment on above: Order Comment: Name Collection Type:: Straight Catheter Performed By: #### A DDONUAPLUS, CUU #### [address] Protein,Urine Negative Normal Negative [facility] Comment on above: Order Comment: Name Collection Type:: Straight Catheter Performed By: #### A DDONUAPLUS, CUU #### [address] RBC,Urine 1 [HPF] Normal 0-4 [facility] Comment on above: Order Comment: Name Collection Type:: Straight Catheter Performed By: #### A DDONUAPLUS, CUU #### [place] [address] [place] Specificy [place],Urine 1.011 Normal 1.001-1.03 0 [facility] Comment on above: Order Comment: Name Collection Type:: Straight Catheter Performed By: #### A DDONUAPLUS, CUU #### [place] [address] [place] Squamous Epithelial Cell,Urine 1 [HPF] Normal 0-2 [facility] Comment on above: Order Comment: Name Collection Type:: Straight Catheter Performed By: #### A DDONUAPLUS, CUU #### [address] Urobilinogen,Urine Normal Normal Normal [facility] Comment on above: Order Comment: Name Collection Type:: Straight Catheter Performed By: #### A DDONUAPLUS, CUU #### [facility] [address] [place] [address] WBC,Urine 5 [HPF] High 0-4 [facility] Comment on above: Order Comment: Name Collection Type:: Straight Catheter Performed By: #### A DDONUAPLUS, CUU #### [facility] [address] [place] [address] ECG 12 lead ECGon 03-31-2024 ECG 12 lead ECG [facility] Main [place] [address] [place] [address] Electrocardiograph Report Signed Patient: Aaron Lewis MR#: [id number] : 1945 Acct:[id number] Age/Sex: 79 / F ADM Date: 03/31/24 Loc: Room: [address] [place] [address] Type: ADM IN Attending Dr: Rosendo Law MD Ordering Provider: Jarad Vargas DO Date of Service: 03/31/24 ECG/ECG 12 lead ECG: Altered Mental Status Copies to: Test Reason : Blood Pressure : 148/88 mmHG Vent. Rate : 90 BPM Atrial Rate : 90 BPM P-R Int : 140 ms QRS Dur : 72 ms QT Int : 344 ms P-R-T Axes : 51 12 13 degrees QTcB Int : 420 ms Normal sinus rhythm Low voltage QRS Confirmed by Jarad VARGAS DO ([id number]) on 03/31/2024 1:58:59 PM Referred By: Electronically Signed By: Jarad VARGAS DO Transcribed By: MUS Signed By Jarad Vargas DO 1 05/31/23 1359 Normal [facility] Eosinophils Auto (Bld) [#/Vo l]Ordered By: Jarad Vargas on 03-31-2024 Eosinophils (Bld) [#/Vol] Automated eosinophil count 0.0-0.45 [facility] Eosinophils/100 WBC Auto (Bl d)Ordered By: Jarad Vargas on 03-31-2024 Eosinophils/100 WBC (Bld) Automated eosinophil % . [facility] Epithelial cells.squamous [# /area] in Urine sediment by Automated countOrdered By: Jarad Vargas on 03-31-2024 Epithelial cells.squamous Auto (Urine sed) [#/Area] Epithelial cells.squamous [#/area] in Urine sediment by Automated count 0-2 [facility] Erythrocyte distribution wid th Auto (RBC) [Ratio]Ordered By: Jarad Vargas on 03-31-2024 Erythrocyte distribution width (RBC) [Ratio] Erythrocyte distribution width [Ratio] by Automated count High 11.9-15.3 [facility] Erythrocytes [#/area] in Uri ne sediment by Automated countOrdered By: Jarad Vargas on 03-31-2024 RBC Auto (Urine sed) [#/Area] Erythrocytes [#/area] in Urine sediment by Automated count 0-4 [facility] Folate [Mass/volume] in Seru m or PlasmaOrdered By: Rosendo Law on 03-31-2024 Folate [Mass/Vol] Folate [Mass/volume] in Serum or Plasma >5.9 [facility] Comment on above: Folate reference ran ge: >5.9 ng/mlThe WHO technical consultation on folate and vitamin [id number] has determined that folate concentrations lessthan 4 ng/ml are considered deficient. Globulin Calc (S) [Mass/Vol] Ordered By: Jarad Vargas on 03-31-2024 Globulin (S) [Mass/Vol] Serum globulin measurement by calculation (mass/volume) [facility] Glucose Glucometer (BldC) [M ass/Vol]Ordered By: Jarad Vargas on 03-31-2024 Glucose [Mass/Vol] Capillary blood gluc ose measurement by glucometer (mass/volume) [facility] Comment on above: Random Glucose Refer ence Range is dependent on time and content of last meal. Glucose of more than 200 mg/dL in a nonstressed, ambulatory subject supports the diagnosis of Diabetes Mellitus. Glucose Poct Glucometerson 1 05-31-2023 Glucose [Mass/Vol] 91 mg/dL Normal [facility] Comment on above: Result Comment: [place] om Glucose Reference Range is dependent on time and content of last meal. Glucose of more than 200 mg/dL in a nonstressed, ambulatory subject supports the diagnosis of Diabetes Mellitus. PERFORMED BY: [facility] [address] [place] [address] PATHOLOGIST [employer] CHUY OLIVERA M.D. Performed By: #### G SUSAN ####Point of Care testing, Glucose [Mass/volume] in Ser um or PlasmaOrdered By: Jarad Vargas on 03-31-2024 Glucose [Mass/Vol] Glucose [Mass/volume ] in Serum or Plasma 70-100 [facility] Comment on above: ADA recommended refe rence rangeRandom Glucose Reference Range is dependent on time and content of last meal. Glucose of more than 200 mg/dL in a nonstressed, ambulatory subject supports the diagnosis of Diabetes Mellitus. Glucose [Mass/volume] in Uri ne by Test stripOrdered By: Jarad Vargas on 03-31-2024 Glucose Test strip (U) [Mass/Vol] Glucose [Mass/volume] in Urine by Test strip Normal [facility] Hematocrit Auto (Bld) [Volum e fraction]Ordered By: Jarad Vargas on 03-31-2024 Hematocrit (Bld) [Volume fraction] Hematocrit [Volume Fraction] of Blood by Automated count 34.0-46.4 [facility] Hemoglobin Test strip Ql (U) Ordered By: Jarad Vargas on 03-31-2024 Hemoglobin Ql (U) Hemoglobin [Presence ] in Urine by Test strip Negative [facility] Hemoglobin [Mass/volume] in BloodOrdered By: Jarad Vargas on 03-31-2024 Hemoglobin (Bld) [Mass/Vol] Hemoglobin [Mass/volume] in Blood 11.8-15.4 [facility] Hepatic Panelon 03-31-2024 Albumin [Mass/Vol] 3.5 g/dL Normal 3.5-5.7 [facility] Comment on above: Performed By: #### H S TROP, CUBLD, PTT, PT, [id number], [id number], LIPASE, TSH3, BMP, HEPATIC, CBC, CK, LACTIC ####[facility] [address] [place] [address] [facility] Albumin/Globulin [Mass ratio] 1.6 {ratio} Normal [facility] Comment on above: Performed By: #### H S TROP, CUBLD, PTT, PT, [id number], [id number], LIPASE, TSH3, BMP, HEPATIC, CBC, CK, LACTIC ####[address] ALP [Catalytic activity/Vol] 57 U/L Normal 34-104 [facility] Comment on above: Performed By: #### H S TROP, CUBLD, PTT, PT, [id number], [id number], LIPASE, TSH3, BMP, HEPATIC, CBC, CK, LACTIC ####[address] ALT [Catalytic activity/Vol] 17 U/L Normal 7-52 [facility] Comment on above: Performed By: #### H S TROP, CUBLD, PTT, PT, [id number], [id number], LIPASE, TSH3, BMP, HEPATIC, CBC, CK, LACTIC ####[address] AST [Catalytic activity/Vol] 14 U/L Normal 13-39 [facility] Comment on above: Performed By: #### H S TROP, CUBLD, PTT, PT, [id number], [id number], LIPASE, TSH3, BMP, HEPATIC, CBC, CK, LACTIC ####[address] Bilirubin [Mass/Vol] 0.4 mg/dL Normal 0.3-1.0 [facility] Comment on above: Performed By: #### H S TROP, CUBLD, PTT, PT, [id number], [id number], LIPASE, TSH3, BMP, HEPATIC, CBC, CK, LACTIC ####[address] Bilirubin,Indirect 0.3 mg/dL Normal [facility] Comment on above: Performed By: #### H S TROP, CUBLD, PTT, PT, [id number], [id number], LIPASE, TSH3, BMP, HEPATIC, CBC, CK, LACTIC ####[address] Bilirubin.indirect [Mass/Vol] 0.10 mg/dL Normal 0.03-0.18 [facility] Comment on above: Performed By: #### H S TROP, CUBLD, PTT, PT, [id number], [id number], LIPASE, TSH3, BMP, HEPATIC, CBC, CK, LACTIC ####[place] [address] Globulin (S) [Mass/Vol] 2.2 g/dL Normal [facility] Comment on above: Performed By: #### H S TROP, CUBLD, PTT, PT, [id number], [id number], LIPASE, TSH3, BMP, HEPATIC, CBC, CK, LACTIC ####[place] [address] Protein [Mass/Vol] 5.7 g/dL Low 6.4-8.9 [facility] Comment on above: Performed By: #### H S TROP, CUBLD, PTT, PT, [id number], [id number], LIPASE, TSH3, BMP, HEPATIC, CBC, CK, LACTIC ####[address] Hyaline casts [#/area] in Ur ine sediment by Automated countOrdered By: Jarad Vargas on 03-31-2024 Hyaline casts Auto (Urine sed) [#/Area] Hyaline casts [#/area] in Urine sediment by Automated count 0-8 [facility] INR in Platelet poor plasma by Coagulation assayOrdered By: Jarad Vargas on 03-31-2024 INR Coag (PPP) [Relative time] INR in Platelet poor plasma by Coagulation assay [facility] Comment on above: INR Therapeutic Rang e A) Pre- and Peroperative OAT started two weeks before surgery. NOT HIP SURGERY: 1.5 - 2.5 HIP SURGERY: 2 - 3B) Primary and secondary prevention of venous THROMBOSIS: 2 - 3C) Active venous thrombosis, pulmonary embolismand prevention of recurrent venous thrombosis: 2 - 3D) Prevention of arterial thromboembolismincluding patients with mechanical heart valves: 3 - 4.5 Ketones Test strip Ql (U)Ord ered By: Jarad Vargas on 03-31-2024 Ketones Ql (U) Ketones [Presence] i n Urine by Test strip Negative [facility] Lactate [Moles/volume] in Se rum or PlasmaOrdered By: Jarad Vargas on 03-31-2024 Lactate [Moles/Vol] Lactate [Moles/volum e] in Serum or Plasma 0.5-2.2 [facility] Lactic Acidon 03-31-2024 Lactate [Moles/Vol] 1.2 mmol/L Normal 0.5-2.2 [facility] Comment on above: Result Comment: PERF ORMED BY: [facility] [address] [place] [address] PATHOLOGIST [employer] CHUY OLIVERA M.D. Performed By: #### H S TROP, CUBLD, PTT, PT, [id number], [id number], LIPASE, TSH3, BMP, HEPATIC, CBC, CK, LACTIC ####[place] [address] [place] [id number] [facility] Leukocyte esterase [Presence ] in Urine by Test stripOrdered By: Jarad Vargas on 03-31-2024 Leukocyte esterase Test strip Ql (U) Leukocyte esterase [Presence] in Urine by Test strip High Negative [facility] Leukocytes [#/area] in Urine sediment by Automated countOrdered By: Jarad Vargas on 03-31-2024 WBC Auto (Urine sed) [#/Area] Leukocytes [#/area] in Urine sediment by Automated count High 0-4 [facility] Leukocytes [#/volume] correc kyleigh for nucleated erythrocytes in Blood by Automated counOrdered By: Jarad Vargas on 03-31-2024 WBC corrected for nucl RBC Auto (Bld) [#/Vol] Leukocytes [#/volume] corrected for nucleated erythrocytes in Blood by Automated coun 3.8-11.6 [facility] Lipaseon 03-31-2024 Lipase [Catalytic activity/Vol] 20.0 U/L Normal 11.0-82.0 [facility] Comment on above: Performed By: #### H S TROP, CUBLD, PTT, PT, [id number], [id number], LIPASE, TSH3, BMP, HEPATIC, CBC, CK, LACTIC ####[facility] [address] [place] [address] [facility] Lipase [Enzymatic activity/v olume] in Serum or PlasmaOrdered By: Jarad Vargas on 03-31-2024 Lipase [Catalytic activity/Vol] Lipase [Enzymatic activity/volume] in Serum or Plasma 11.0-82.0 [facility] Lymphocytes Auto (Bld) [#/Vo l]Ordered By: Jarad Vargas on 03-31-2024 Lymphocytes (Bld) [#/Vol] Lymphocytes [#/volume] in Blood by Automated count 1.00-4.8 [facility] Lymphocytes/100 WBC Auto (Bl d)Ordered By: Jarad Vargas on 03-31-2024 Lymphocytes/100 WBC (Bld) Lymphocytes/100 leukocytes in Blood by Automated count . [facility] MCH Auto (RBC) [Entitic mass ]Ordered By: Jarad Vargas on 03-31-2024 MCH (RBC) [Entitic mass] MCH [Entitic mass] by Automated count 24.7-34.3 [facility] MCHC Auto (RBC) [Mass/Vol]Or dered By: Jarad Vargas on 03-31-2024 MCHC (RBC) [Mass/Vol] MCHC [Mass/volume] by Automated count 32.0-35.0 [facility] MCV Auto (RBC) [Entitic vol] Ordered By: Jarad Vargas on 03-31-2024 MCV (RBC) [Entitic vol] MCV [Entitic volume] by Automated count 80-100 [facility] Monocyte distribution width [Entitic volume] in Blood by AutomatedOrdered By: Jarad Vargas on 03-31-2024 Monocyte distribution width Auto (Bld) [Entitic vol] Monocyte distribution width [Entitic volume] in Blood by Automated 0.00-20.00 [facility] Monocytes Auto (Bld) [#/Vol] Ordered By: Jarad Vargas on 03-31-2024 Monocytes (Bld) [#/Vol] Automated blood monocyte count 0.0-0.8 [facility] Monocytes/100 WBC Auto (Bld) Ordered By: Jarad Vargas on 03-31-2024 Monocytes/100 WBC (Bld) Automated monocyte % . [facility] Mucus [Presence] in Urine by AutomatedOrdered By: Jarad Vargas on 03-31-2024 Mucus Auto Ql (U) Mucus [Presence] in Urine by Automated [facility] Neutrophils Auto (Bld) [#/Vo l]Ordered By: Jarad Vargas on 03-31-2024 Neutrophils (Bld) [#/Vol] Neutrophils [#/volume] in Blood by Automated count 1.8-7.7 [facility] Neutrophils/100 WBC Auto (Bl d)Ordered By: Jarad Vargas on 03-31-2024 Neutrophils/100 WBC (Bld) Automated neutrophil % . [facility] Nitrite Test strip Ql (U)Ord ered By: Jarad Vargas on 03-31-2024 Nitrite Ql (U) Nitrite [Presence] i n Urine by Test strip Negative [facility] No Panel InformationOrdered By: Jarad Vargas on 03-31-2024 Estimated GFR (CKD-EPI) 48.060 mL/Min [facility] Creatinine Clearance (Chem 43.86 [facility] Nucleated erythrocytes [Pres ence] in Blood by Automated countOrdered By: Jarad Vargas on 03-31-2024 Nucleated RBC Auto Ql (Bld) Nucleated erythrocytes [Presence] in Blood by Automated count 0-0.5 [facility] Partial Thromboplastin Timeo n 03-31-2024 aPTT Coag (Bld) [Time] 28.6 s Normal 25.1-36.5 [facility] Comment on above: Result Comment: A he matocrit value greater than 55% may lead to inaccurate results in coagulation testing. Patients having hematocrit values >55% require a special collection tube for coagulation studies. Please contact the laboratory at [phone] for redraw instructions. PERFORMED BY: [facility] [address] [place] [address] PATHOLOGIST [employer] CHUY OLIVERA M.D. Performed By: #### H S TROP, CUBLD, PTT, PT, [id number], [id number], LIPASE, TSH3, BMP, HEPATIC, CBC, CK, LACTIC ####[facility] [address] [place] [address] [facility] Platelet mean volume Auto (B ld) [Entitic vol]Ordered By: Jarad Vargas on 03-31-2024 Platelet mean volume (Bld) [Entitic vol] Platelet mean volume [Entitic volume] in Blood by Automated count 6.3-10.7 [facility] Platelets Auto (Bld) [#/Vol] Ordered By: Jarad Vargas on 03-31-2024 Platelets (Bld) [#/Vol] Platelets [#/volume] in Blood by Automated count 150-450 [facility] Potassium [Moles/volume] in Serum or PlasmaOrdered By: Jarad Vargas on 03-31-2024 Potassium [Moles/Vol] Potassium [Moles/v olume] in Serum or Plasma 3.5-5.1 [facility] Protein Test strip (U) [Mass /Vol]Ordered By: Jarad Vargas on 03-31-2024 Protein (U) [Mass/Vol] Protein [Mass/vol ume] in Urine by Test strip Negative [facility] Protein [Mass/volume] in Ser um or PlasmaOrdered By: Jarad Vargas on 03-31-2024 Protein [Mass/Vol] Protein [Mass/volume ] in Serum or Plasma Low 6.4-8.9 [facility] Prothrombin Time INRon 03-31 INR Coag (PPP) [Relative time] 0.9 {INR} Normal [facility] Comment on above: Result Comment: INR Therapeutic Range A) Pre- and Peroperative OAT started two weeks before surgery. NOT HIP SURGERY: 1.5 - 2.5 HIP SURGERY: 2 - 3 B) Primary and secondary prevention of venous THROMBOSIS: 2 - 3 C) Active venous thrombosis, pulmonary embolism and prevention of recurrent venous thrombosis: 2 - 3 D) Prevention of arterial thromboembolism including patients with mechanical heart valves: 3 - 4.5 Performed By: #### H S TROP, CUBLD, PTT, PT, [id number], [id number], LIPASE, TSH3, BMP, HEPATIC, CBC, CK, LACTIC ####[facility] [id number] [place] [address] [facility] PT Coag (PPP) [Time] 10.9 s Normal 9.0-12.9 [facility] Comment on above: Result Comment: A he matocrit value greater than 55% may lead to inaccurate results in coagulation testing. Patients having hematocrit values >55% require a special collection tube for coagulation studies. Please contact the laboratory at [phone] for redraw instructions. Performed By: #### H S TROP, CUBLD, PTT, PT, [id number], [id number], LIPASE, TSH3, BMP, HEPATIC, CBC, CK, LACTIC ####[facility] [address] [place] [id number] [facility] Prothrombin time (PT)Ordered By: Jarad Vargas on 03-31-2024 PT Coag (PPP) [Time] Prothrombin time (PT) 9.0- 12.9 [facility] Comment on above: A hematocrit value g reater than 55% may lead to inaccurate results in coagulation testing. Patients having hematocrit values >55% require a special collection tube for coagulation studies. Please contact the laboratory at [phone] for redraw instructions. RBC Auto (Bld) [#/Vol]Ordere d By: Jarad Vargas on 03-31-2024 RBC (Bld) [#/Vol] Erythrocytes [#/volu me] in Blood by Automated count 3.60-5.00 [facility] Serum or plasma albumin/glob ulin mass ratioOrdered By: Jarad Vargas on 03-31-2024 Albumin/Globulin [Mass ratio] Serum or plasma albumin/globulin mass ratio [facility] Serum or plasma anion gap de terminationOrdered By: Jarad Vargas on 03-31-2024 Anion gap [Moles/Vol] Serum or plasma an ion gap determination 6.0-15.0 [facility] Serum or plasma non-glucuron idated bilirubin measurement (mass/volume)Ordered By: Jarad Vargas on 03-31-2024 Bilirubin.indirect [Mass/Vol] Serum or plasma non-glucuronidated bilirubin measurement (mass/volume) [facility] Sodium [Moles/volume] in Ser um or PlasmaOrdered By: Jarad Vargas on 03-31-2024 Sodium [Moles/Vol] Sodium [Moles/volume ] in Serum or Plasma 136-145 [facility] Specific gravity Test strip (U) [Rel density]Ordered By: Jarad Vargas on 03-31-2024 Specific gravity (U) [Rel density] Specific gravity of Urine by Test strip 1.001-1.03 0 [facility] Thyroid Stimulating Hormoneo n 03-31-2024 TSH Qn 0.51 m[IU]/L Normal 0.45-5.33 [facility] Comment on above: Result Comment: PERF ORMED BY: [facility] [address] [place] [address] PATHOLOGIST [employer] CHUY OLIVERA M.D. Performed By: #### H S TROP, CUBLD, PTT, PT, [id number], [id number], LIPASE, TSH3, BMP, HEPATIC, CBC, CK, LACTIC ####[address] [address] [facility] Thyrotropin [Units/volume] i n Serum or PlasmaOrdered By: Jarad Vargas on 03-31-2024 TSH Qn Thyrotropin [Units/v olume] in Serum or Plasma 0.45-5.33 [facility] Troponin I High Sensitivityo n 03-31-2024 Troponin I High Sensitivity 9.0 pg/mL Normal 0.0-15.0 [facility] Comment on above: Result Comment: PERF ORMED BY: [facility] [address] [place] [address] PATHOLOGIST [employer] CHUY OLIVERA M.D. Performed By: #### H S TROP, CUBLD, PTT, PT, [id number], [id number], LIPASE, TSH3, BMP, HEPATIC, CBC, CK, LACTIC ####[place] [id number] [facility] Troponin I.cardiac [Mass/vol ume] in Serum or Plasma by Detection limit <= 0.01 ng/Ordered By: Jarad Vargas on 03-31-2024 Troponin I.cardiac DL <= 0.01 ng/mL [Mass/Vol] Troponin I.cardiac [Mass/volume] in Serum or Plasma by Detection limit <= 0.01 ng/ 0.0-15.0 [facility] Urea nitrogen [Mass/volume] in Serum or PlasmaOrdered By: Jarad Vargas on 03-31-2024 Urea nitrogen [Mass/Vol] Urea nitrogen [Mass/volume] in Serum or Plasma 7-25 [facility] Urine Cultureon 03-31-2024 Bacteria identified Cx Nom (U) No Growth 2 Days PERFORMED BY: [facility] [address] [place] [address] PATHOLOGIST [employer] CHUY OLIVERA M.D. Normal [facility] Comment on above: Performed By: #### A DDONUAPLUS, CUU #### [facility] [address] Urine cultureOrdered By: Nidia Vargas on 03-31-2024 Bacteria identified Cx Nom (U) Urine culture [facility] Urobilinogen Test strip (U) [Mass/Vol]Ordered By: Jarad Vargas on 03-31-2024 Urobilinogen (U) [Mass/Vol] Urobilinogen [Mass/volume] in Urine by Test strip Normal [facility] Vit. B12/Folate Profileon Cobalamin (Vitamin B12) [Mass/Vol] 1038 pg/mL High 180-914 [facility] Comment on above: Performed By: #### H S TROP, CUBLD, PTT, PT, [id number], [id number], LIPASE, TSH3, BMP, HEPATIC, CBC, CK, LACTIC ####[facility] Folate 37.0 ng/mL Normal >5.9 [facility] Comment on above: Result Comment: Kae te reference range: >5.9 ng/ml The WHO technical consultation on folate and vitamin b12 deficiencies has determined that folate concentrations less than 4 ng/ml are considered deficient. Performed By: #### H S TROP, CUBLD, PTT, PT, [id number], [id number], LIPASE, TSH3, BMP, HEPATIC, CBC, CK, LACTIC ####[facility] [address] Vitamin B12 ser/plasOrdered By: Rosendo Law on 03-31-2024 Cobalamin (Vitamin B12) [Mass/Vol] Vitamin B12 ser/plas High 180-914 [facility] Vitamin D 25 Hydroxy Totalon 03-31-2024 Vitamin D 25 Hydroxy Total 77.3 ng/mL Normal 30-100 [facility] Comment on above: Result Comment: SHARDA MIN D STATUS 25(OH)VITAMIN D RANGE (ng/mL) Deficient <20 Insufficient 20 to <30 Sufficient 30 to 100 Reference: Laura Pascal, Aliyah SHIN, et al. Evaluation,treatment, and prevention of vitamin D deficiency; an Endocrine Society clinical practice guideline. JCEM. 2010; 96(7):191-. PERFORMED BY: [place] [address] PATHOLOGIST [employer] CHUY OLIVERA M.D. Performed By: #### H S TROP, CUBLD, PTT, PT, [id number], [id number], LIPASE, TSH3, BMP, HEPATIC, CBC, CK, LACTIC ####[facility] [address] [place] [address] [facility] Vitamin D+Metabolites [Mass/ volume] in Serum or PlasmaOrdered By: Rosendo Law on 03-31-2024 Vitamin D+Metabolites [Mass/Vol] Vitamin D+Metabolites [Mass/volume] in Serum or Plasma 30-100 [facility] Comment on above: VITAMIN D STATUS 25( [place])VITAMIN D RANGE (ng/mL) Deficient <20 Insufficient 20 to <30Sufficient 30 to 100Reference: Laura Pascal, Aliyah SHIN, et al. Evaluation,treatment, and prevention of vitamin D deficiency; an Endocrine Society clinical practice guideline. JCEM. 2010; 96(7):191-. WBC Auto (Bld) [#/Vol]Ordere d By: Jarad Vargas on 03-31-2024 WBC (Bld) [#/Vol] Leukocytes [#/volume ] in Blood by Automated count 3.8-11.6 [facility] X-ray reportOrdered By: Armin Caraballo on 03-31-2024 Study report [facility] [place] [address] XRay Report Signed Patient: Aaron Lewis MR#: [id number] : 1945 Acct:[id number] Age/Sex: 79 / F ADM Date: 4 Loc: ER Room: Type: [facility] ER Attending Dr: Copies to: Jarad Vargas DO~ Ordering Provider: Jarad Vargas DO Date of Service: 03/31/24 XR/XR chest 2V*: Altered Mental Status Chest 2 views CLINICAL HISTORY: UTI for one week. Confusion. COMPARISON: None FINDINGS: Cardiomegaly with mild vascular congestion. No consolidation pneumothorax pleural effusion or free air. XR/XR chest 2V* IMPRESSION: CHF FINDINGS. NO CONSOLIDATION TO SUGGEST PNEUMONIA. Impression dictated by: Ray Caraballo Jr. D.OCarlos03/31/2024 9:38 AM Dictation Location: RADIO-PC-23 Transcribed By: PRECIOUS 03/31/24937 Dictated By: Ray Caraballo Jr, DO 03/31/24937 Signed By: 03/31/2438 [facility] XR chest 2V*on 03-31-2024 XR chest 2V* [facility] [place] [address] XRay Report Signed Patient: Aaron Lewis MR#: [id number] : 1945 Acct:[id number] Age/Sex: 79 / F ADM Date: 03/31/24 Loc: ER Room: Type: [facility] ER Attending Dr: Copies to: Jarad Vargas DO Ordering Provider: Jarad Vargas DO Date of Service: 03/31/24 XR/XR chest 2V*: Altered Mental Status Chest 2 views CLINICAL HISTORY: UTI for one week. Confusion. COMPARISON: None FINDINGS: Cardiomegaly with mild vascular congestion. No consolidation pneumothorax pleural effusion or free air. XR/XR chest 2V* IMPRESSION: CHF FINDINGS. NO CONSOLIDATION TO SUGGEST PNEUMONIA. Impression dictated by: Ray Caraballo Jr. D.O.03/31/2024 9:38 AM Dictation Location: RADIO-PC-23 Transcribed By: PRECIOUS 03/31/24937 Dictated By: Ray Caraballo Jr, DO 03/31/24937 Signed By: 03/31/24937 Normal [facility] aPTT in Platelet poor plasma by Coagulation assayOrdered By: Jarad Vargas on 03-31-2024 aPTT Coag (PPP) [Time] Activated partial thromboplastin time (aPTT) in platelet poor plasma by coagulation a 25.1-36.5 [facility] Comment on above: A hematocrit value g reater than 55% may lead to inaccurate results in coagulation testing. Patients having hematocrit values >55% require a special collection tube for coagulation studies. Please contact the laboratory at [phone] for redraw instructions. pH Test strip (U)Ordered By: Jarad Vargas on 03-31-2024 pH (U) pH of Urine by Test strip 5.0-9.0 [facility] Alanine aminotransferase [En zymatic activity/volume] in Serum or PlasmaOrdered By: Elder Garcia on 03-23-2024 ALT [Catalytic activity/Vol] Alanine aminotransferase [Enzymatic activity/volume] in Serum or Plasma 7-52 [facility] Albumin [Mass/volume] in Ser um or Plasma by Bromocresol green (BCG) dye binding methoOrdered By: Elder Garcia on 03-23-2024 Albumin BCG dye [Mass/Vol] Albumin [Mass/volume] in Serum or Plasma by Bromocresol green (BCG) dye binding metho 3.5-5.7 [facility] Alkaline phosphatase [Enzyma tic activity/volume] in Serum or PlasmaOrdered By: Elder Garcia on 03-23-2024 ALP [Catalytic activity/Vol] Alkaline phosphatase [Enzymatic activity/volume] in Serum or Plasma 34-104 [facility] Appearance of UrineOrdered B y: Elder Garcia on 03-23-2024 Appearance (U) Urine appearance Abnormal Clear [facility] Aspartate aminotransferase [ Enzymatic activity/volume] in Serum or PlasmaOrdered By: Elder Garcia on 03-23-2024 AST [Catalytic activity/Vol] Aspartate aminotransferase [Enzymatic activity/volume] in Serum or Plasma 13-39 [facility] Bacteria [Presence] in Urine by AutomatedOrdered By: Elder Garcia on 03-23-2024 Bacteria Auto Ql (U) Bacteria [Presence] in Urine by Automated High None Seen [facility] Basophils Auto (Bld) [#/Vol] Ordered By: Elder Garcia on 03-23-2024 Basophils (Bld) [#/Vol] Automated basophil count 0.0-0.2 [facility] Basophils/100 WBC Auto (Bld) Ordered By: Elder Garcia on 03-23-2024 Basophils/100 WBC (Bld) Automated basophil % . [facility] Bilirubin Test strip Ql (U)O rdered By: Elder Garcia on 03-23-2024 Bilirubin Ql (U) Bilirubin.total [Pre sence] in Urine by Test strip Negative [facility] Bilirubin.direct [Mass/volum e] in Serum or PlasmaOrdered By: Elder Garcia on 03-23-2024 Bilirubin.direct [Mass/Vol] Bilirubin.direct [Mass/volume] in Serum or Plasma 0.03-0.18 [facility] Bilirubin.total [Mass/volume ] in Serum or PlasmaOrdered By: Elder Garcia on 03-23-2024 Bilirubin [Mass/Vol] Bilirubin.total [Mass/volume] in Serum or Plasma 0.3-1.0 [facility] Calcium [Mass/volume] in Ser um or PlasmaOrdered By: Elder Garcia on 03-23-2024 Calcium [Mass/Vol] Calcium [Mass/volume ] in Serum or Plasma 8.6-10.3 [facility] Carbon dioxide, total [Moles /volume] in Serum or PlasmaOrdered By: Elder Garcia on 03-23-2024 CO2 [Moles/Vol] Carbon dioxide, tota l [Moles/volume] in Serum or Plasma 21.0-31.0 [facility] Chloride [Moles/volume] in S alison or PlasmaOrdered By: Elder Garcia on 03-23-2024 Chloride [Moles/Vol] Chloride [Moles/vol ume] in Serum or Plasma 98-107 [facility] Color Auto (U)Ordered By: Arnaldo Garcia on 03-23-2024 Color (U) Color of Urine by Auto Yellow [facility] Complete Blood Count Auto Di ffon 03-23-2024 Basophils (Bld) [#/Vol] 0.1 10*3/uL Normal 0.0-0.2 [facility] Comment on above: Result Comment: PERF ORMED BY: [place] [address] PATHOLOGIST [employer] LAZARA TERAN M.D. Performed By: #### C MP, LIPASE, CBC, CK, HEPATIC, HS TROP #### [address] Basophils/100 WBC (Bld) 0.9 % Normal . [facility] Comment on above: Performed By: #### C MP, LIPASE, CBC, CK, HEPATIC, HS TROP #### [address] Eosinophils (Bld) [#/Vol] 0.1 10*3/uL Normal 0.0-0.45 [facility] Comment on above: Performed By: #### C MP, LIPASE, CBC, CK, HEPATIC, HS TROP #### [address] Eosinophils/100 WBC (Bld) 0.9 % Normal . [facility] Comment on above: Performed By: #### C MP, LIPASE, CBC, CK, HEPATIC, HS TROP #### [address] Erythrocyte distribution width (RBC) [Ratio] 17.8 % High 11.9-15.3 [facility] Comment on above: Performed By: #### C MP, LIPASE, CBC, CK, HEPATIC, HS TROP #### [address] Hematocrit (Bld) [Volume fraction] 44.4 % Normal 34.0-46.4 [facility] Comment on above: Performed By: #### C MP, LIPASE, CBC, CK, HEPATIC, HS TROP #### [address] Hemoglobin (Bld) [Mass/Vol] 14.7 g/dL Normal 11.8-15.4 [facility] Comment on above: Performed By: #### C MP, LIPASE, CBC, CK, HEPATIC, HS TROP #### [address] Lymphocytes (Bld) [#/Vol] 1.1 10*3/uL Normal 1.00-4.8 [facility] Comment on above: Performed By: #### C MP, LIPASE, CBC, CK, HEPATIC, HS TROP #### [address] Lymphocytes/100 WBC (Bld) 12.7 % Normal . [facility] Comment on above: Performed By: #### C MP, LIPASE, CBC, CK, HEPATIC, HS TROP #### [address] MCH (RBC) [Entitic mass] 30.7 pg Normal 24.7-34.3 [facility] Comment on above: Performed By: #### C MP, LIPASE, CBC, CK, HEPATIC, HS TROP #### [address] MCV (RBC) [Entitic vol] 93.1 fL Normal 80-100 [facility] Comment on above: Performed By: #### C MP, LIPASE, CBC, CK, HEPATIC, HS TROP #### [address] Mean Corpuscular HGB Conc 33.0 g/dL Normal 32.0-35.0 [facility] Comment on above: Performed By: #### C MP, LIPASE, CBC, CK, HEPATIC, HS TROP #### [address] Monocytes (Bld) [#/Vol] 0.6 10*3/uL Normal 0.0-0.8 [facility] Comment on above: Performed By: #### C MP, LIPASE, CBC, CK, HEPATIC, HS TROP #### [address] Monocytes/100 WBC (Bld) 19.41 % Normal 0.00-20.00 [facility] Comment on above: Performed By: #### C MP, LIPASE, CBC, CK, HEPATIC, HS TROP #### [address] Monocytes/100 WBC (Bld) 7.0 % Normal . [facility] Comment on above: Performed By: #### C MP, LIPASE, CBC, CK, HEPATIC, HS TROP #### [address] Neutrophils (Bld) [#/Vol] 6.9 10*3/uL Normal 1.8-7.7 [facility] Comment on above: Performed By: #### C MP, LIPASE, CBC, CK, HEPATIC, HS TROP #### [address] Neutrophils/100 WBC (Bld) 78.5 % Normal . [facility] Comment on above: Performed By: #### C MP, LIPASE, CBC, CK, HEPATIC, HS TROP #### [address] NRBC% 0.0 /100{WBC} Normal 0-0.5 [facility] Comment on above: Performed By: #### C MP, LIPASE, CBC, CK, HEPATIC, HS TROP #### [address] Platelet mean volume (Bld) [Entitic vol] 9.2 fL Normal 6.3-10.7 [facility] Comment on above: Performed By: #### C MP, LIPASE, CBC, CK, HEPATIC, HS TROP #### [place] [address] [place] Platelets (Bld) [#/Vol] 271 10*3/uL Normal 150-450 [facility] Comment on above: Performed By: #### C MP, LIPASE, CBC, CK, HEPATIC, HS TROP #### [place] [address] [place] RBC (Bld) [#/Vol] 4.78 10*6/uL Normal 3.60-5.00 [facility] Comment on above: Performed By: #### C MP, LIPASE, CBC, CK, HEPATIC, HS TROP #### [address] [address] [place] WBC (Bld) [#/Vol] 8.8 10*3/uL Normal 3.8-11.6 [facility] Comment on above: Performed By: #### C MP, LIPASE, CBC, CK, HEPATIC, HS TROP #### [facility] [address] Comprehensive Metabolic Pane meagan 03-23-2024 Albumin [Mass/Vol] 3.7 g/dL Normal 3.5-5.7 [facility] Comment on above: Performed By: #### C MP, LIPASE, CBC, CK, HEPATIC, HS TROP ####[address] Albumin/Globulin [Mass ratio] 1.5 {ratio} Normal [facility] Comment on above: Performed By: #### C MP, LIPASE, CBC, CK, HEPATIC, HS TROP ####[address] ALP [Catalytic activity/Vol] 61 U/L Normal 34-104 [facility] Comment on above: Performed By: #### C MP, LIPASE, CBC, CK, HEPATIC, HS TROP ####[address] ALT [Catalytic activity/Vol] 18 U/L Normal 7-52 [facility] Comment on above: Performed By: #### C MP, LIPASE, CBC, CK, HEPATIC, HS TROP ####[address] Anion gap [Moles/Vol] 13.3 mmol/L Normal 6.0-15.0 [facility] Comment on above: Performed By: #### C MP, LIPASE, CBC, CK, HEPATIC, HS TROP ####[address] AST [Catalytic activity/Vol] 15 U/L Normal 13-39 [facility] Comment on above: Performed By: #### C MP, LIPASE, CBC, CK, HEPATIC, HS TROP ####[address] Bilirubin [Mass/Vol] 0.5 mg/dL Normal 0.3-1.0 [facility] Comment on above: Performed By: #### C MP, LIPASE, CBC, CK, HEPATIC, HS TROP ####[address] Calcium [Mass/Vol] 9.2 mg/dL Normal 8.6-10.3 [facility] Comment on above: Performed By: #### C MP, LIPASE, CBC, CK, HEPATIC, HS TROP ####[address] Chloride [Moles/Vol] 106 mmol/L Normal 98-107 [facility] Comment on above: Performed By: #### C MP, LIPASE, CBC, CK, HEPATIC, HS TROP ####[address] CO2 [Moles/Vol] 24.5 mmol/L Normal 21.0-31.0 [facility] Comment on above: Performed By: #### C MP, LIPASE, CBC, CK, HEPATIC, HS TROP ####[address] Creatinine [Mass/Vol] 1.04 mg/dL Normal 0.60-1.20 [facility] Comment on above: Performed By: #### C MP, LIPASE, CBC, CK, HEPATIC, HS TROP ####[address] Creatinine Clr Calc Pharmacy 44.72 Normal [facility] Comment on above: Performed By: #### C MP, LIPASE, CBC, CK, HEPATIC, HS TROP ####[address] GFR/1.73 sq M.predicted MDRD (S/P/Bld) [Vol rate/Area] 55.356 mL/min/{1.73_m2} Normal [facility] Comment on above: Performed By: #### C MP, LIPASE, CBC, CK, HEPATIC, HS TROP ####[address] Globulin (S) [Mass/Vol] 2.4 g/dL Normal [facility] Comment on above: Performed By: #### C MP, LIPASE, CBC, CK, HEPATIC, HS TROP ####[address] Glucose [Mass/Vol] 102 mg/dL High 70-100 [facility] Comment on above: Result Comment: [facility] Glucose Reference Range is dependent on time and content of last meal. Glucose of more than 200 mg/dL in a nonstressed, ambulatory subject supports the diagnosis of Diabetes Mellitus. ADA recommended reference range Performed By: #### C MP, LIPASE, CBC, CK, HEPATIC, HS TROP ####[address] Potassium [Moles/Vol] 3.8 mmol/L Normal 3.5-5.1 [facility] Comment on above: Performed By: #### C MP, LIPASE, CBC, CK, HEPATIC, HS TROP ####[address] Protein [Mass/Vol] 6.1 g/dL Low 6.4-8.9 [facility] Comment on above: Performed By: #### C MP, LIPASE, CBC, CK, HEPATIC, HS TROP ####[address] Sodium [Moles/Vol] 140 mmol/L Normal 136-145 [facility] Comment on above: Performed By: #### C MP, LIPASE, CBC, CK, HEPATIC, HS TROP ####[address] Urea nitrogen [Mass/Vol] 19 mg/dL Normal 7-25 [facility] Comment on above: Performed By: #### C MP, LIPASE, CBC, CK, HEPATIC, HS TROP ####[address] Creatine Kinaseon 03-23-2024 CK [Catalytic activity/Vol] 22 U/L Low 30-223 [facility] Comment on above: Performed By: #### C MP, LIPASE, CBC, CK, HEPATIC, HS TROP ####[place] [id number] [place] [address] [facility] Creatine kinase [Enzymatic a ctivity/volume] in Serum or PlasmaOrdered By: Elder Garcia on 03-23-2024 CK [Catalytic activity/Vol] Creatine kinase [Enzymatic activity/volume] in Serum or Plasma Low 30-223 [facility] Creatinine [Mass/volume] in Serum or PlasmaOrdered By: Elder Garcia on 03-23-2024 Creatinine [Mass/Vol] Creatinine [Mass/v olume] in Serum or Plasma 0.60-1.20 [facility] Dipstick and Microscopicon 1 05-23-2023 Appearance (U) Cloudy Critically abnormal Clear [facility] Comment on above: Order Comment: Name Collection Type:: Clean-Voided Midstream Performed By: #### A DDONUAPLUS, CUU ####[address] Bacteria,Urine 1+ High None Seen [facility] Comment on above: Order Comment: Name Collection Type:: Clean-Voided Midstream Performed By: #### A DDONUAPLUS, CUU ####[place] [id number] [facility] Bilirubin,Urine Negative Normal Negative [facility] Comment on above: Order Comment: Name Collection Type:: Clean-Voided Midstream Performed By: #### A DDONUAPLUS, CUU ####[place] [id number] [facility] Color (U) Yellow Normal Yellow [facility] Comment on above: Order Comment: Name Collection Type:: Clean-Voided Midstream Performed By: #### A DDONUAPLUS, CUU ####[place] [id number] [facility] Glucose Ql (U) Normal Normal Normal [facility] Comment on above: Order Comment: Name Collection Type:: Clean-Voided Midstream Performed By: #### A DDONUAPLUS, CUU ####[place] [id number] [facility] Hyaline Casts,Urine 9 [LPF] High 0-8 [facility] Comment on above: Order Comment: Name Collection Type:: Clean-Voided Midstream Performed By: #### A DDONUAPLUS, CUU ####[address] [address] [facility] Ketones Ql (U) 1+ High Negative [facility] Comment on above: Order Comment: Name Collection Type:: Clean-Voided Midstream Performed By: #### A DDONUAPLUS, CUU ####[address] [address] [facility] Leukocyte esterase Test strip Ql (U) 4+ High Negative [facility] Comment on above: Order Comment: Name Collection Type:: Clean-Voided Midstream Performed By: #### A DDONUAPLUS, CUU ####[address] [address] [facility] Mucus,Urine 1+ Critically abnormal [facility] Comment on above: Order Comment: Name Collection Type:: Clean-Voided Midstream Result Comment: PERF ORMED BY: [place] [address] PATHOLOGIST [employer] LAZARA TERAN M.D. Performed By: #### A DDONUAPLUS, CUU ####[address] [address] [facility] Nitrite,Urine Positive High Negative [facility] Comment on above: Order Comment: Name Collection Type:: Clean-Voided Midstream Performed By: #### A DDONUAPLUS, CUU ####[address] [address] [facility] Occult Blood,Urine Negative Normal Negative [facility] Comment on above: Order Comment: Name Collection Type:: Clean-Voided Midstream Result Comment: PERF ORMED BY: [place] [address] PATHOLOGIST [employer] LAZARA TERAN M.D. Performed By: #### A DDONUAPLUS, CUU ####[address] [address] [place] pH (U) 5.5 [pH] Normal 5.0-9.0 [facility] Comment on above: Order Comment: Name Collection Type:: Clean-Voided Midstream Performed By: #### A DDONUAPLUS, CUU ####[address] Protein (U) [Mass/Vol] 20 mg/dL High Negative [facility] Comment on above: Order Comment: Name Collection Type:: Clean-Voided Midstream Performed By: #### A DDONUAPLUS, CUU ####[address] RBC,Urine 5 [HPF] High 0-4 [facility] Comment on above: Order Comment: Name Collection Type:: Clean-Voided Midstream Performed By: #### A DDONUAPLUS, CUU ####[address] Specificy [place],Urine 1.021 Normal 1.001-1.03 0 [facility] Comment on above: Order Comment: Name Collection Type:: Clean-Voided Midstream Performed By: #### A DDONUAPLUS, CUU ####[address] Squamous Epithelial Cell,Urine 1 [HPF] Normal 0-2 [facility] Comment on above: Order Comment: Name Collection Type:: Clean-Voided Midstream Performed By: #### A DDONUAPLUS, CUU ####[address] Urobilinogen,Urine 2 mg/dL High Normal [facility] Comment on above: Order Comment: Name Collection Type:: Clean-Voided Midstream Performed By: #### A DDONUAPLUS, CUU ####[address] WBC CLUMP, Urine Many High None Seen [facility] Comment on above: Order Comment: Name Collection Type:: Clean-Voided Midstream Performed By: #### A DDONUAPLUS, CUU ####[address] [place] [address] [facility] WBC,Urine Innumerable High 0-4 [facility] Comment on above: Order Comment: Name Collection Type:: Clean-Voided Midstream Performed By: #### A KAYLA ROSS ####[facility] [id number] [place] [id number] [facility] ECG 12 lead ECGon 03-23-2024 ECG 12 lead ECG [facility] Main [place] [address] [place] [address] Electrocardiograph Report Signed Patient: Aaron Lewis MR#: [id number] : 1945 Acct:[id number] Age/Sex: 79 / F ADM Date: 03/23/24 Loc: ER Room: Type: [facility] ER Attending Dr: Ordering Provider: Elder Garcia APRN Date of Service: 03/23/2403/06/1453 ECG/ECG 12 lead ECG: Nausea/Vomiting/Diarrhea Copies to: Test Reason : Blood Pressure : */* mmHG Vent. Rate : 84 BPM Atrial Rate : 84 BPM P-R Int : 140 ms QRS Dur : 66 ms QT Int : 366 ms P-R-T Axes : 42 -6 15 degrees QTcB Int : 432 ms Normal sinus rhythm Inferior infarct , age undetermined Cannot rule out Anterior infarct , age undetermined Abnormal ECG When compared with ECG of 21-Jan-2013 15:48, Minimal criteria for Anterior infarct are now present Inferior infarct is now present T wave amplitude has decreased in Anterolateral leads Confirmed by SHUKRI VELAZQUEZ DO ([id number]) on 03/23/2024 8:20:13 PM Referred By: Electronically Signed By: SHUKRI VELAZQUEZ DO Transcribed By: MUS Signed By Shukri Velazquez DO 03/23 Normal [facility] Eosinophils Auto (Bld) [#/Vo l]Ordered By: Elder Garcia on 03-23-2024 Eosinophils (Bld) [#/Vol] Automated eosinophil count 0.0-0.45 [facility] Eosinophils/100 WBC Auto (Bl d)Ordered By: Elder Garcia on 03-23-2024 Eosinophils/100 WBC (Bld) Automated eosinophil % . [facility] Epithelial cells.squamous [# /area] in Urine sediment by Automated countOrdered By: Elder Garcia on 03-23-2024 Epithelial cells.squamous Auto (Urine sed) [#/Area] Epithelial cells.squamous [#/area] in Urine sediment by Automated count 0-2 [facility] Erythrocyte distribution wid th Auto (RBC) [Ratio]Ordered By: Elder Garcia on 03-23-2024 Erythrocyte distribution width (RBC) [Ratio] Erythrocyte distribution width [Ratio] by Automated count High 11.9-15.3 [facility] Erythrocytes [#/area] in Uri ne sediment by Automated countOrdered By: Elder Garcia on 03-23-2024 RBC Auto (Urine sed) [#/Area] Erythrocytes [#/area] in Urine sediment by Automated count High 0-4 [facility] Globulin Calc (S) [Mass/Vol] Ordered By: Elder Garcia on 03-23-2024 Globulin (S) [Mass/Vol] Serum globulin measurement by calculation (mass/volume) [facility] Glucose [Mass/volume] in Ser um or PlasmaOrdered By: Elder Garcia on 03-23-2024 Glucose [Mass/Vol] Glucose [Mass/volume ] in Serum or Plasma High 70-100 [facility] Comment on above: ADA recommended refe rence rangeRandom Glucose Reference Range is dependent on time and content of last meal. Glucose of more than 200 mg/dL in a nonstressed, ambulatory subject supports the diagnosis of Diabetes Mellitus. Glucose [Mass/volume] in Uri ne by Test stripOrdered By: Elder Garcia on 03-23-2024 Glucose Test strip (U) [Mass/Vol] Glucose [Mass/volume] in Urine by Test strip Normal [facility] Hematocrit Auto (Bld) [Volum e fraction]Ordered By: Elder Garcia 03-23-2024 Hematocrit (Bld) [Volume fraction] Hematocrit [Volume Fraction] of Blood by Automated count 34.0-46.4 [facility] Hemoglobin Test strip Ql (U) Ordered By: Elder Garcia 03-23-2024 Hemoglobin Ql (U) Hemoglobin [Presence ] in Urine by Test strip Negative [facility] Hemoglobin [Mass/volume] in BloodOrdered By: Elder Garcia 4 Hemoglobin (Bld) [Mass/Vol] Hemoglobin [Mass/volume] in Blood 11.8-15.4 [facility] Hepatic Panelon 03-23-2024 Bilirubin,Indirect 0.4 mg/dL Normal [facility] Comment on above: Performed By: #### C MP, LIPASE, CBC, CK, HEPATIC, HS TROP ####[facility] [id number] Bilirubin.indirect [Mass/Vol] 0.10 mg/dL Normal 0.03-0.18 [facility] Comment on above: Performed By: #### C MP, LIPASE, CBC, CK, HEPATIC, HS TROP ####[facility] [id number] Hyaline casts [#/area] in Ur ine sediment by Automated countOrdered By: Elder Garcia on 03-23-2024 Hyaline casts Auto (Urine sed) [#/Area] Hyaline casts [#/area] in Urine sediment by Automated count [facility] 0-8 [facility] Ketones Test strip Ql (U)Ord ered By: Elder Garcia on 03-23-2024 Ketones Ql (U) Ketones [Presence] i n Urine by Test strip High Negative [facility] Leukocyte clumps [Presence] in Urine by AutomatedOrdered By: Elder Garcia on 03-23-2024 Leukocyte clumps Auto Ql (U) Leukocyte clumps [Presence] in Urine by Automated High None Seen [facility] Leukocyte esterase [Presence ] in Urine by Test stripOrdered By: Elder Garcia on 03-23-2024 Leukocyte esterase Test strip Ql (U) Leukocyte esterase [Presence] in Urine by Test strip High Negative [facility] Leukocytes [#/area] in Urine sediment by Automated countOrdered By: Elder Garcia on 03-23-2024 WBC Auto (Urine sed) [#/Area] Leukocytes [#/area] in Urine sediment by Automated count High 0-4 [facility] Leukocytes [#/volume] correc kyleigh for nucleated erythrocytes in Blood by Automated counOrdered By: Elder Garcia on 03-23-2024 WBC corrected for nucl RBC Auto (Bld) [#/Vol] Leukocytes [#/volume] corrected for nucleated erythrocytes in Blood by Automated coun 3.8-11.6 [facility] Lipaseon 03-23-2024 Lipase [Catalytic activity/Vol] 23.0 U/L Normal 11.0-82.0 [facility] Comment on above: Result Comment: PERF ORMED BY: [facility] [address] [facility] [place] [address] PATHOLOGIST [employer] LAZARA TERAN M.D. Performed By: #### C MP, LIPASE, CBC, CK, HEPATIC, HS TROP ####[facility] [id number] [place] [address] [facility] Lipase [Enzymatic activity/v olume] in Serum or PlasmaOrdered By: Elder Garcai on 03-23-2024 Lipase [Catalytic activity/Vol] Lipase [Enzymatic activity/volume] in Serum or Plasma 11.0-82.0 [facility] Lymphocytes Auto (Bld) [#/Vo l]Ordered By: Elder Garcia on 03-23-2024 Lymphocytes (Bld) [#/Vol] Lymphocytes [#/volume] in Blood by Automated count 1.00-4.8 [facility] Lymphocytes/100 WBC Auto (Bl d)Ordered By: Elder Garcia on 03-23-2024 Lymphocytes/100 WBC (Bld) Lymphocytes/100 leukocytes in Blood by Automated count . [facility] MCH Auto (RBC) [Entitic mass ]Ordered By: Eldre Garcia on 03-23-2024 MCH (RBC) [Entitic mass] MCH [Entitic mass] by Automated count 24.7-34.3 [facility] MCHC Auto (RBC) [Mass/Vol]Or dered By: Elder Garcia on 03-23-2024 MCHC (RBC) [Mass/Vol] MCHC [Mass/volume] by Automated count 32.0-35.0 [facility] MCV Auto (RBC) [Entitic vol] Ordered By: Elder Garcia on 03-23-2024 MCV (RBC) [Entitic vol] MCV [Entitic volume] by Automated count 80-100 [facility] Monocyte distribution width [Entitic volume] in Blood by AutomatedOrdered By: Elder Garcia on 03-23-2024 Monocyte distribution width Auto (Bld) [Entitic vol] Monocyte distribution width [Entitic volume] in Blood by Automated 0.00-20.00 [facility] Monocytes Auto (Bld) [#/Vol] Ordered By: Elder Garcia on 03-23-2024 Monocytes (Bld) [#/Vol] Automated blood monocyte count 0.0-0.8 [facility] Monocytes/100 WBC Auto (Bld) Ordered By: Elder Garcia on 03-23-2024 Monocytes/100 WBC (Bld) Automated monocyte % . [facility] Mucus [Presence] in Urine by AutomatedOrdered By: Elder Garcia on 03-23-2024 Mucus Auto Ql (U) Mucus [Presence] in Urine by Automated Abnormal [facility] Neutrophils Auto (Bld) [#/Vo l]Ordered By: Elder Garcia on 03-23-2024 Neutrophils (Bld) [#/Vol] Neutrophils [#/volume] in Blood by Automated count 1.8-7.7 [facility] Neutrophils/100 WBC Auto (Bl d)Ordered By: Elder Garcia on 03-23-2024 Neutrophils/100 WBC (Bld) Automated neutrophil % . [facility] Nitrite Test strip Ql (U)Ord ered By: Elder Garcia on 03-23-2024 Nitrite Ql (U) Nitrite [Presence] i n Urine by Test strip High Negative [facility] No Panel InformationOrdered By: Elder Garcia on 03-23-2024 Estimated GFR (CKD-EPI) 55.356 mL/Min [facility] Creatinine Clearance (Chem 44.72 [facility] Nucleated erythrocytes [Pres ence] in Blood by Automated countOrdered By: Elder Garcia on 03-23-2024 Nucleated RBC Auto Ql (Bld) Nucleated erythrocytes [Presence] in Blood by Automated count 0-0.5 [facility] Platelet mean volume Auto (B ld) [Entitic vol]Ordered By: Elder Garcia on 03-23-2024 Platelet mean volume (Bld) [Entitic vol] Platelet mean volume [Entitic volume] in Blood by Automated count 6.3-10.7 [facility] Platelets Auto (Bld) [#/Vol] Ordered By: Elder Garcia on 03-23-2024 Platelets (Bld) [#/Vol] Platelets [#/volume] in Blood by Automated count 150-450 [facility] Potassium [Moles/volume] in Serum or PlasmaOrdered By: Elder Garcia on 03-23-2024 Potassium [Moles/Vol] Potassium [Moles/v olume] in Serum or Plasma 3.5-5.1 [facility] Protein Test strip (U) [Mass /Vol]Ordered By: Elder Garcia on 03-23-2024 Protein (U) [Mass/Vol] Protein [Mass/vol ume] in Urine by Test strip High Negative [facility] Protein [Mass/volume] in Ser um or PlasmaOrdered By: Elder Garcia 03-23-2024 Protein [Mass/Vol] Protein [Mass/volume ] in Serum or Plasma Low 6.4-8.9 [facility] RBC Auto (Bld) [#/Vol]Ordere d By: Elder Garcia 03-23-2024 RBC (Bld) [#/Vol] Erythrocytes [#/volu me] in Blood by Automated count 3.60-5.00 [facility] Serum or plasma albumin/glob ulin mass ratioOrdered By: Elder Garcia 03-23-2024 Albumin/Globulin [Mass ratio] Serum or plasma albumin/globulin mass ratio [facility] Serum or plasma anion gap de terminationOrdered By: Elder Garcia 03-23-2024 Anion gap [Moles/Vol] Serum or plasma an ion gap determination 6.0-15.0 [facility] Serum or plasma non-glucuron idated bilirubin measurement (mass/volume)Ordered By: Elder Garcia on 03-23-2024 Bilirubin.indirect [Mass/Vol] Serum or plasma non-glucuronidated bilirubin measurement (mass/volume) [facility] Sodium [Moles/volume] in Ser um or PlasmaOrdered By: Elder Garcia 03-23-2024 Sodium [Moles/Vol] Sodium [Moles/volume ] in Serum or Plasma 136-145 [facility] Specific gravity Test strip (U) [Rel density]Ordered By: Elder Garcia on 03-23-2024 Specific gravity (U) [Rel density] Specific gravity of Urine by Test strip 1.001-1.03 0 [facility] Troponin I High Sensitivityo n 03-23-2024 Troponin I High Sensitivity 9.3 pg/mL Normal 0.0-15.0 [facility] Comment on above: Result Comment: PERF ORMED BY: [facility] [address] [id number] PATHOLOGIST [employer] LAZARA TERAN M.D. Performed By: #### C MP, LIPASE, CBC, CK, HEPATIC, HS TROP ####[facility] [id number] [place], [place] [address] Troponin I.cardiac [Mass/vol ume] in Serum or Plasma by Detection limit <= 0.01 ng/Ordered By: Elder Garcia on 03-23-2024 Troponin I.cardiac DL <= 0.01 ng/mL [Mass/Vol] Troponin I.cardiac [Mass/volume] in Serum or Plasma by Detection limit <= 0.01 ng/ 0.0-15.0 [facility] Urea nitrogen [Mass/volume] in Serum or PlasmaOrdered By: Elder Garcia on 03-23-2024 Urea nitrogen [Mass/Vol] Urea nitrogen [Mass/volume] in Serum or Plasma 12-05 [facility] Urine Cultureon 03-23-2024 Bacteria identified Cx Nom (U) ORGANISM: Escherichia coli (O:ESCCOL) Collins Count >100,000 Aerobic DARIUS Charge (NMIC56) SUSCEPTIBILITY ORGANISM: O:ESCCOL ANTIBIOTIC INTERPRETATION DARIUS Amikacin S <16 Amoxacillin/K Clavulanate S <8 Ampicillin S <8 Ampicillin/Sulbactam S <4 Aztreonam S <4 Cefazolin S <2 Cefepime S <2 Ceftazidime S <1 Ceftazidime/Avibactam S <4 Ceftolozane/Tazobactam S <2 Ceftriaxone S <1 Cefuroxime S 8 Ciprofloxacin S <0.25 Ertapenem S <0.5 Gentamicin S <2 Levofloxacin S <0.5 Meropenem S <1 Meropenem/Vaborbactam S <2 Nitrofurantoin S <32 Piperacillin/Tazobactam S <8 Tetracycline S <4 Tigecycline S <2 Tobramycin S <2 Trimethoprim/Sulfamethoxaz ole S <0.5 S = SUSCEPTIBLE I = INTERMEDIATE R = RESISTANT BLANK = DATA NOT AVAILABLE, OR DRUG NOT ADVISABLE OR TESTED R* = RESISTANCE DUE TO EXTENDED SPECTRUM BETA-LACTAMASES ESBL = EXTENDED SPECTRUM BETA-LACTAMASE TFG = THYMIDINE-DEPENDENT STRAIN ZAHIRA = BETA-LACTAMASE POSITIVE IB = INDUCIBLE BETA-LACTAMASE. APPEARS IN PLACE OF 'S' WITH SPECIES KNOWN TO POSSESS INDUCIBLE BETA-LACTAMASES. POTENTIALLY THEY MAY BECOME RESISTANT TO ALL B-LACTAM DRUGS. PERFORMED BY: [place] [address] PATHOLOGIST [employer] LAZARA TERAN M.D. Normal [facility] Comment on above: Performed By: #### A CRISPIN ROSSU ####[facility] [id number] [place] [id number] [facility] Urine cultureOrdered By: Babak Garcia on 03-23-2024 Bacteria identified Cx Nom (U) Escherichia coli Abnormal [facility] Urobilinogen Test strip (U) [Mass/Vol]Ordered By: Elder Garcia on 03-23-2024 Urobilinogen (U) [Mass/Vol] Urobilinogen [Mass/volume] in Urine by Test strip High Normal [facility] WBC Auto (Bld) [#/Vol]Ordere d By: Elder Garcia on 03-23-2024 WBC (Bld) [#/Vol] Leukocytes [#/volume ] in Blood by Automated count 3.8-11.6 [facility] X-ray reportOrdered By: Peyton Gatica on 03-23-2024 Study report [facility] Main [place] [address] [place] [address] XRay Report Signed Patient: Aaron Lewis MR#: [id number] : 1945 Acct:[id number] Age/Sex: 79 / F ADM Date: 4 Loc: ER Room: Type: [facility] ER Attending Dr: Copies to: Elder Garcia APRN~ Ordering Provider: Elder Garcia APRN Date of Service: 03/23/24 XR/XR acute abdomen series: Nausea/Vomiting/Diarrhea XR acute abdomen series 03/23/2024 2:56 PM SIGNS AND SYMPTOMS: ^Nausea/Vomiting/Diarrhea PROTOCOL: Frontal radiograph the chest with frontal radiographs of the abdomen and pelvis COMPARISON: None FINDINGS: The trachea is midline. The heart and mediastinal structures are within normal limits. The lung parenchyma is clear. There is a levoconvex curvature of the thoracolumbar junction with posterior fusion hardware in the lumbar spine. Degenerative changes are noted in the sacroiliac joints. There is a nonobstructive bowel gas pattern. There is no radiographic evidence of free air. There is a moderate to large amount of stool throughout the colon suggesting constipation. Remote posttraumatic deformity is noted along the pubic rami. XR/XR acute abdomen series IMPRESSION: No acute cardiopulmonary pathology. No bowel obstruction. No free air. There is a moderate to large amount of stool throughout the colon suggesting constipation. Impression dictated by: Peyton Gatica M.D.03/23/2024 4:45 PM Dictation Location: [place] [address] Transcribed By: [facility] 03/23/241644 Dictated By: Peyton Gatica II, MD 03/23/241642 Signed By: 03/23/241644 [facility] Work Phone: XR acute abdomen serieson XR acute abdomen series [facility] [address] [place] [address] [place] [address] XRay Report Signed Patient: Aaron Lewis MR#: [id number] : 1945 Acct:[id number] Age/Sex: 79 / F ADM Date: 03/23/24 Loc: ER Room: Type: [facility] ER Attending Dr: Copies to: Elder Garcia APRN Ordering Provider: Elder Garcia APRN Date of Service: 03/23/24 XR/XR acute abdomen series: Nausea/Vomiting/Diarrhea XR acute abdomen series 03/23/2024 2:56 PM SIGNS AND SYMPTOMS: Nausea/Vomiting/Diarrhea PROTOCOL: Frontal radiograph the chest with frontal radiographs of the abdomen and pelvis COMPARISON: None FINDINGS: The trachea is midline. The heart and mediastinal structures are within normal limits. The lung parenchyma is clear. There is a levoconvex curvature of the thoracolumbar junction with posterior fusion hardware in the lumbar spine. Degenerative changes are noted in the sacroiliac joints. There is a nonobstructive bowel gas pattern. There is no radiographic evidence of free air. There is a moderate to large amount of stool throughout the colon suggesting constipation. Remote posttraumatic deformity is noted along the pubic rami. XR/XR acute abdomen series IMPRESSION: No acute cardiopulmonary pathology. No bowel obstruction. No free air. There is a moderate to large amount of stool throughout the colon suggesting constipation. Impression dictated by: Peyton Gatica M.D.03/23/2024 4:45 PM Dictation Location: [place] [address] Transcribed By: [facility] 03/23/24 1645 Dictated By: Peyton Gatica II, MD 03/23/24 1643 Signed By: 03/23/24 1645 Normal [facility] pH Test strip (U)Ordered By: Elder Garcia on 03-23-2024 pH (U) pH of Urine by Test strip 5.0-9.0 [facility] Estimated glomerular filtrat ion rate (GFR) non- Americanon 03-13-2024 GFR/1.73 sq M.predicted among non-blacks MDRD (S/P/Bld) [Vol rate/Area] Estimated glomerular filtration rate (GFR) non- Low >=60 mL/min/1.[address] [place] [address] Laboratory - Chemistry and C hemistry - challengeon 03-13-2024 Creatinine [Mass/Vol] 1.32 mg/dL High 0.55-1.02 [facility] GFR/1.73 sq M.predicted MDRD (S/P/Bld) [Vol rate/Area] 47 mL/min/{1.73_m2} Low >=60 mL/min/1.[address] [place] [address] Urea nitrogen [Mass/Vol] 20.0 mg/dL High 7.0-18.0 [facility] 36on 03-10-2024 36 Labs are in media Normal [facility] 36 Confirmed Opat. Labs confirmed with [facility] home [facility]. Left VM for pt to follow up for appointment. Normal [facility] Basophils Auto (Bld) [#/Vol] on 03-10-2024 Basophils (Bld) [#/Vol] 0.1 10 3/uL 0.0-0.1 [facility] Basophils (Bld) [#/Vol] Automated basophil count 0.0-0.1 [facility] Basophils/100 WBC Auto (Bld) on 03-10-2024 Basophils/100 WBC (Bld) 1.0 % 0.2-2.0 [facility] Basophils/100 WBC (Bld) Automated basophil % 0.2-2.0 [facility] Eosinophils/100 WBC Auto (Bl d)on 03-10-2024 Eosinophils/100 WBC (Bld) 1.9 % 0.9-7.0 [facility] Eosinophils/100 WBC (Bld) Automated eosinophil % 0.9-7.0 [facility] Erythrocyte distribution wid th Auto (RBC) [Ratio]on 03-10-2024 Erythrocyte distribution width (RBC) [Ratio] 16.6 % High 11.0-15.0 [facility] Erythrocyte distribution width (RBC) [Ratio] Erythrocyte distribution width [Ratio] by Automated count High 11.0-15.0 [facility] Estimated glomerular filtrat ion rate (GFR) non- Americanon 03-10-2024 GFR/1.73 sq M.predicted among non-blacks MDRD (S/P/Bld) [Vol rate/Area] 25 mL/min/{1.73_m2} Low >=60 mL/min/1.7 3m 2 [facility] GFR/1.73 sq M.predicted among non-blacks MDRD (S/P/Bld) [Vol rate/Area] Estimated glomerular filtration rate (GFR) non- Low >=60 mL/min/1.7 3m 2 [facility] Hematocrit Auto (Bld) [Volum e fraction]on 03-10-2024 Hematocrit (Bld) [Volume fraction] 42.5 % 36.0-48.0 [facility] Hematocrit (Bld) [Volume fraction] Hematocrit [Volume Fraction] of Blood by Automated count 36.0-48.0 [facility] Hemoglobin [Mass/volume] in Bloodon 03-10-2024 Hemoglobin (Bld) [Mass/Vol] 13.3 g/dL 12.0-16.0 [facility] Hemoglobin (Bld) [Mass/Vol] Hemoglobin [Mass/volume] in Blood 12.0-16.0 [facility] Laboratory - Chemistry and C hemistry - challengeon 03-10-2024 Calcium [Mass/Vol] 9.7 mg/dL 8.5-10.1 [facility] Chloride [Moles/Vol] 112 mmol/L High 98-107 [facility] CO2 [Moles/Vol] 24.9 mmol/L 21.0-32.0 [facility] Creatinine [Mass/Vol] 1.95 mg/dL High 0.55-1.02 [facility] GFR/1.73 sq M.predicted MDRD (S/P/Bld) [Vol rate/Area] 30 mL/min/{1.73_m2} Low >=60 mL/min/1.7 3m 2 [facility] Glucose [Mass/Vol] 140 mg/dL High 74-106 [facility] Potassium [Moles/Vol] 3.4 mmol/L Low 3.5-5.1 [facility] Sodium [Moles/Vol] 148 mmol/L High 136-145 [facility] Urea nitrogen [Mass/Vol] 26.0 mg/dL High 7.0-18.0 [facility] Urea nitrogen/Creatinine [Mass ratio] 13.3 mg/mg [facility] Laboratory - Hematology and Cell countson 03-10-2024 Immature granulocytes/100 WBC (Bld) 0.4 % 0.0-0.5 [facility] Leukocytes [#/volume] correc kyleigh for nucleated erythrocytes in Blood by Automated counon 03-10-2024 WBC corrected for nucl RBC Auto (Bld) [#/Vol] 10.3 10 3/uL 4.0-11.0 [facility] WBC corrected for nucl RBC Auto (Bld) [#/Vol] Leukocytes [#/volume] corrected for nucleated erythrocytes in Blood by Automated coun 4.0-11.0 [facility] Lymphocytes Auto (Bld) [#/Vo l]on 03-10-2024 Lymphocytes (Bld) [#/Vol] 1.3 10 3/uL 1.2-3.8 [facility] Lymphocytes (Bld) [#/Vol] Lymphocytes [#/volume] in Blood by Automated count 1.2-3.8 [facility] Lymphocytes/100 WBC Auto (Bl d)on 03-10-2024 Lymphocytes/100 WBC (Bld) 12.2 % Low 20.5-60.0 [facility] Lymphocytes/100 WBC (Bld) Lymphocytes/100 leukocytes in Blood by Automated count Low 20.5-60.0 [facility] MCH Auto (RBC) [Entitic mass ]on 03-10-2024 MCH (RBC) [Entitic mass] 30.0 pg 26.7-34.0 [facility] MCH (RBC) [Entitic mass] MCH [Entitic mass] by Automated count 26.7-34.0 [facility] MCHC Auto (RBC) [Mass/Vol]on 03-10-2024 MCHC (RBC) [Mass/Vol] 31.3 g/dL 29.9-35.2 [facility] MCHC (RBC) [Mass/Vol] MCHC [Mass/volume] by Automated count 29.9-35.2 [facility] MCV Auto (RBC) [Entitic vol] on 03-10-2024 MCV (RBC) [Entitic vol] 95.9 fL 81.0-99.0 [facility] MCV (RBC) [Entitic vol] MCV [Entitic volume] by Automated count 81.0-99.0 [facility] Monocytes Auto (Bld) [#/Vol] on 03-10-2024 Monocytes (Bld) [#/Vol] 0.7 10 3/uL 0.3-0.8 [facility] Monocytes (Bld) [#/Vol] Automated blood monocyte count 0.3-0.8 [facility] Monocytes/100 WBC Auto (Bld) on 03-10-2024 Monocytes/100 WBC (Bld) 6.9 % 1.7-12.0 [facility] Monocytes/100 WBC (Bld) Automated monocyte % 1.7-12.0 [facility] Neutrophils Auto (Bld) [#/Vo l]on 03-10-2024 Neutrophils (Bld) [#/Vol] 8.0 10 3/uL High 1.4-6.5 [facility] [facility] Neutrophils (Bld) [#/Vol] Neutrophils [#/volume] in Blood by Automated count High 1.4-6.5 [facility] Neutrophils/100 WBC Auto (Bl d)on 03-10-2024 Neutrophils/100 WBC (Bld) 77.6 % High 43.0-75.0 [facility] Neutrophils/100 WBC (Bld) Automated neutrophil % High 43.0-75.0 [facility] No Panel Informationon 03-10 Eosinophils # (Auto) 0.2 10 3/uL 0.0-0.7 [facility] Immature Granulocyte # (Auto) 0.04 10 3/uL High 0.00-0.03 [facility] Platelet mean volume Auto (B ld) [Entitic vol]on 03-10-2024 Platelet mean volume (Bld) [Entitic vol] 11.5 fL 9.5-13.5 [facility] Platelet mean volume (Bld) [Entitic vol] Platelet mean volume [Entitic volume] in Blood by Automated count 9.5-13.5 [facility] Platelets Auto (Bld) [#/Vol] on 03-10-2024 Platelets (Bld) [#/Vol] 289 10 3/uL 150-450 [facility] Platelets (Bld) [#/Vol] Platelets [#/volume] in Blood by Automated count 150-450 [facility] RBC Auto (Bld) [#/Vol]on RBC (Bld) [#/Vol] 4.43 10 6/uL 4.20-5.40 [facility] RBC (Bld) [#/Vol] Erythrocytes [#/volu me] in Blood by Automated count 4.20-5.40 [facility] Serum or plasma anion gap de terminationon 03-10-2024 Anion gap [Moles/Vol] 14.5 mmol/L [facility] Anion gap [Moles/Vol] Serum or plasma an ion gap determination [facility] Basic Metabolic Panelon 02-12 Anion gap [Moles/Vol] 12 mmol/L 5 - 15 mmol/L [facility] Calcium [Mass/Vol] 9.8 mg/dL 8.5 - 10. 5 mg/dL [facility] Chloride [Moles/Vol] 105 mmol/L 98 - 10 9 mmol/L [facility] CO2 [Moles/Vol] 26 mmol/L 22 - 32 mmol/L [facility] Creatinine [Mass/Vol] 1.01 mg/dL High 0.40 - 1.00 mg/dL [facility] Comment on above: METHOD TRACEABLE TO [facility] STANDARD eGFR (CKD-EPI)non-race dependent 57 Low - PINF [facility] Comment on above: Reported eGFR is based on the CKD-EPI 2020 equation that does not use a race coefficient. Glucose [Mass/Vol] 91 mg/dL 65 - 99 mg/dL [facility] Interpretation and review of laboratory results Abnormal [facility] Potassium [Moles/Vol] 3.8 mmol/L 3.5 - 5.0 mmol/L [facility] Sodium [Moles/Vol] 143 mmol/L 134 - 146 mmol/L [facility] Urea nitrogen [Mass/Vol] 19 mg/dL 5 - 27 mg/dL [facility] CBC auto differentialon 02-12 Basophils (Bld) [#/Vol] 0.2 10*3/uL [facility] Basophils/100 WBC (Bld) 2.5 % [facility] Eosinophils (Bld) [#/Vol] 0.2 10*3/uL [facility] Eosinophils/100 WBC (Bld) 2.2 % [facility] Erythrocyte distribution width (RBC) [Ratio] 16.2 % High 11.5 - 15.0 % [facility] Hematocrit (Bld) [Volume fraction] 42 % 35 - 47 % [facility] Hemoglobin (Bld) [Mass/Vol] 14 g/dL 11.7 - 15.5 g/dL [facility] Interpretation and review of laboratory results Abnormal [facility] Lymphocytes (Bld) [#/Vol] 1.6 10*3/uL [facility] Lymphocytes/100 WBC (Bld) 22.9 % [facility] MCH (RBC) [Entitic mass] 30.7 pg 27 - 34 pg [facility] MCHC (RBC) [Mass/Vol] 33.3 g/dL 32 - 3 6 g/dL [facility] MCV (RBC) [Entitic vol] 92 fL 80 - 100 fL [facility] Monocytes (Bld) [#/Vol] 0.7 10*3/uL [facility] Monocytes/100 WBC (Bld) 10.4 % [facility] Neutrophils (Bld) [#/Vol] 4.3 10*3/uL [facility] Neutrophils/100 WBC (Bld) 62 % [facility] Platelet mean volume (Bld) [Entitic vol] 9.4 fL 7 - 12 fL [facility] Platelets (Bld) [#/Vol] 241 10*3/uL [facility] RBC (Bld) [#/Vol] 4.55 10*6/uL [facility] WBC corrected for nucl RBC Auto (Bld) [#/Vol] 7 [facility] CSF spinal fluid cell counto n 03-04-2024 Clarity (CSF) CLEAR [facility] Color (CSF) COLORLESS [facility] Color (Spun CSF) COLORLESS [facility] Interpretation and review of laboratory results Abnormal [facility] Laboratory comment Arun (Report) TUBE 3 [facility] Lymphocytes/100 WBC Manual cnt (CSF) 97 % High 0 [facility] Monocytes/100 WBC Manual cnt (CSF) 3 % High 0 [facility] Nucleated cells Manual cnt (CSF) [#/Vol] 0.091 10*3/uL High 0 - 5 /uL [facility] RBC Manual cnt (CSF) [#/Vol] 2 /uL High 0 - 1 /uL [facility] Csf total proteinon 03-04-20 Protein (CSF) [Mass/Vol] 57 mg/dL High 15 - 45 mg/dL [facility] [employer] [facility] Glucose, CSFon 03-04-2024 Glucose (CSF) [Mass/Vol] 64 mg/dL 40 - 70 mg/dL [facility] [employer] [facility] Guidance for puncture of Lum bar spineon 03-04-2024 Fredrick Rain MD - 03/04/2024 Pre-procedure diagnosis: See history below Post-procedure diagnosis: Same as above Assistants/resident: See the technologist's notes above Consent/pre-procedure evaluation: See below. [place] protocol timeout verification performed. Estimated blood loss: Less than 10 mL Procedure/complications: See below Radiation dosage measurements: See below and see technologist's notes above Conscious sedation: If conscious sedation was administered, preprocedure evaluation for conscious sedation was performed and documented. History: Needs CSF. Possible meningitis Procedure: after explanation of the procedure, indications, benefits, risks, and alternatives to fluoroscopically-guided lumbar puncture to the patient, the patient gave consent. The risks of the procedure included bleeding, infection, allergic reaction, nerve damage, pain, and headache requiring epidural blood patch. The back was prepped and draped using sterile barrier technique. 1% xylocaine was given for local anesthesia. 3 digital images, 29 mGy air kerma radiation, and 0.9 minutes of fluoroscopy time were utilized. After placement of a 20-gauge needle into the lumbar subarachnoid space, 15 ml of clear, colorless CSF were collected and sent for the indicated studies. Digital spot radiograph was obtained. .20 cm cm water was the opening pressure and 4 cm of water was the closing pressure.. There was no immediate complication from the procedure Impression: fluoroscopically-guided lumbar puncture without immediate complication. Finalized by José Antonio Rain MD on 03/04/2024 10:21 AM [facility] Radiology Study observation (narrative) [facility] Guidance for puncture of Lum bar spineOrdered By: Fredrick Rain on 03-04-2024 [facility] Work Phone: Meningitis+Encephalitis path ogens DNA and RNA panel KIMMY+non-probe (CSF)on 03-04-2024 C. gattii+neoformans DNA KIMMY+non-probe Ql (CSF) Not detected Not Detected^N ot Detected [facility] CMV DNA KIMMY+non-probe Ql (CSF) Not detected Not Detected^N ot Detected [facility] E. coli K1 DNA KIMMY+non-probe Ql (CSF) Not detected Not Detected^N ot Detected [facility] Enterovirus RNA KIMMY+non-probe Ql (CSF) Not detected Not Detected^N ot Detected [facility] H. influenzae DNA KIMMY+non-probe Ql (CSF) Not detected Not Detected^N ot Detected [facility] HHV 6 DNA KIMMY+non-probe Ql (CSF) Not detected Not Detected^N ot Detected [facility] HSV 1 DNA KIMMY+non-probe Ql (CSF) Not detected Not Detected^N ot Detected [facility] HSV 2 DNA KIMMY+non-probe Ql (CSF) Not detected Not Detected^N ot Detected [facility] Interpretation and review of laboratory results Abnormal [facility] L. monocytogenes DNA KIMMY+non-probe Ql (CSF) Not detected Not Detected^N ot Detected [facility] N. meningitidis DNA KIMMY+non-probe Ql (CSF) Not detected Not Detected^N ot Detected [facility] Parechovirus A RNA KIMMY+non-probe Ql (CSF) Not detected Not Detected^N ot Detected [facility] S. agalactiae DNA KIMMY+non-probe Ql (CSF) Not detected Not Detected^N ot Detected [facility] S. pneumoniae DNA KIMMY+non-probe Ql (CSF) Not detected Not Detected^N ot Detected [facility] Specimen source Nom (Body fld) CEREBROSPINAL FLUID [facility] VZV DNA KIMMY+non-probe Ql (CSF) Detected Abnormal Not Detected^N ot Detected [facility] Comment on above: Varicella zoster vir us (VZV) detected by PCR. [facility] No Panel Informationon 03-[address] [facility] Protein (CSF) [Mass/Vol]on Interpretation and review of laboratory results Abnormal [facility] XR Chest Single viewon 03-04 History: hypoxic Exam/Technique: Single AP view of the chest was obtained Comparison: None Findings: Cardiac size is within normal range. There is mild central vascular congestion likely aggravated by low lung volume. There is no focal areas of airspace disease, pleural effusion or pneumothorax. IMPRESSION: Mild central vascular congestion likely aggravated by low lung volume. Finalized by Herminio Sahni MD on 03/04/2024 12:39 PM SECTRAHerminio Angulo MD - 03/04/2024 History: hypoxic Exam/Technique: Single AP view of the chest was obtained Comparison: None Findings: Cardiac size is within normal range. There is mild central vascular congestion likely aggravated by low lung volume. There is no focal areas of airspace disease, pleural effusion or pneumothorax. IMPRESSION: Mild central vascular congestion likely aggravated by low lung volume. Finalized by Herminio Sahni MD on 03/04/2024 12:[address] [facility] Radiology Study observation (narrative) [facility] XR Chest Single viewOrdered By: Herminio Sahni on 03-04-[address] [facility] Work Phone: Basic Metabolic Panelon 10 Anion gap [Moles/Vol] 15 mmol/L 5 - 15 mmol/L [facility] Calcium [Mass/Vol] 9.6 mg/dL 8.5 - 10. 5 mg/dL [facility] Chloride [Moles/Vol] 107 mmol/L 98 - 10 9 mmol/L [facility] CO2 [Moles/Vol] 20 mmol/L Low 22 - 32 mmol/L [facility] Creatinine [Mass/Vol] 1.1 mg/dL High 0.40 - 1.00 mg/dL [facility] Comment on above: METHOD TRACEABLE TO [facility] STANDARD eGFR (CKD-EPI)non-race dependent 52 Low - PINF [facility] Comment on above: Reported eGFR is based on the CKD-EPI 2020 equation that does not use a race coefficient. Glucose [Mass/Vol] 90 mg/dL 65 - 99 mg/dL [facility] Interpretation and review of laboratory results Abnormal [facility] Potassium [Moles/Vol] 4.3 mmol/L 3.5 - 5.0 mmol/L [facility] Sodium [Moles/Vol] 142 mmol/L 134 - 146 mmol/L [facility] Urea nitrogen [Mass/Vol] 22 mg/dL 5 - 27 mg/dL [facility] CBC auto differentialon 02-12 Basophils (Bld) [#/Vol] 0.1 10*3/uL [facility] Basophils/100 WBC (Bld) 1.2 % [facility] Eosinophils (Bld) [#/Vol] 0.1 10*3/uL [facility] Eosinophils/100 WBC (Bld) 1.7 % [facility] Erythrocyte distribution width (RBC) [Ratio] 16.2 % High 11.5 - 15.0 % [facility] Hematocrit (Bld) [Volume fraction] 43.7 % 35 - 47 % [facility] Hemoglobin (Bld) [Mass/Vol] 14.9 g/dL 11.7 - 15.5 g/dL [facility] Interpretation and review of laboratory results Abnormal [facility] Lymphocytes (Bld) [#/Vol] 2.4 10*3/uL [facility] Lymphocytes/100 WBC (Bld) 28.1 % [facility] MCH (RBC) [Entitic mass] 31 pg 27 - [address] [facility] MCHC (RBC) [Mass/Vol] 34 g/dL 32 - 3 6 g/dL [facility] MCV (RBC) [Entitic vol] 91 fL 80 - [address] [facility] Monocytes (Bld) [#/Vol] 0.8 10*3/uL [facility] Monocytes/100 WBC (Bld) 9.4 % [facility] Neutrophils (Bld) [#/Vol] 5.1 10*3/uL [facility] Neutrophils/100 WBC (Bld) 59.6 % [facility] Platelet mean volume (Bld) [Entitic vol] 9.1 fL 7 - [address] [facility] Platelets (Bld) [#/Vol] 267 10*3/uL [facility] RBC (Bld) [#/Vol] 4.79 10*6/uL [facility] WBC corrected for nucl RBC Auto (Bld) [#/Vol] 8.5 [facility] Urinalysison 03-03-2024 Bilirubin Ql (U) Negative Negative^N egative [facility] Color (U) YELLOW YELLOW^YEL LOW [facility] Glucose (U) [Mass/Vol] Negative Negat derrell^N egative mg/dL [facility] Hemoglobin Auto test strip Ql (U) Negative Negative^N egative [facility] Interpretation and review of laboratory results Abnormal [facility] Ketones (U) [Mass/Vol] Trace Abnormal Negat derrell^N egative mg/dL [facility] Leukocyte esterase Auto test strip Ql (U) Negative Negative^N egative [facility] Nitrite Auto test strip Ql (U) Negative Negative^N egative [facility] pH (U) 6 [pH] 5.0 - 8.[address] [facility] Protein (U) [Mass/Vol] Negative Negat derrell^N egative mg/dL [facility] Specific gravity Refractometry automated (U) [Rel density] 1.019 1.003 - 1.[address] [facility] Turbidity Ql (U) CLEAR CLEAR^PIYUSH R [facility] Urobilinogen Qn (U) NINF [facility] CBC auto differentialon 02-12 Basophils (Bld) [#/Vol] 0.1 10*3/uL [facility] Basophils/100 WBC (Bld) 0.6 % [facility] Eosinophils (Bld) [#/Vol] 0.1 10*3/uL [facility] Eosinophils/100 WBC (Bld) 0.6 % [facility] Erythrocyte distribution width (RBC) [Ratio] 16.3 % High 11.5 - 15.0 % [facility] Hematocrit (Bld) [Volume fraction] 42.8 % 35 - 47 % [facility] Hemoglobin (Bld) [Mass/Vol] 14.3 g/dL 11.7 - 15.5 g/dL [facility] Interpretation and review of laboratory results Abnormal [facility] Lymphocytes (Bld) [#/Vol] 1.9 10*3/uL [facility] Lymphocytes/100 WBC (Bld) 20.7 % [facility] MCH (RBC) [Entitic mass] 30.6 pg 27 - 34 pg [facility] MCHC (RBC) [Mass/Vol] 33.5 g/dL 32 - 3 6 g/dL [facility] MCV (RBC) [Entitic vol] 91 fL 80 - 100 fL [facility] Monocytes (Bld) [#/Vol] 1 10*3/uL High [facility] Monocytes/100 WBC (Bld) 11.1 % [facility] Neutrophils (Bld) [#/Vol] 6.3 10*3/uL [facility] Neutrophils/100 WBC (Bld) 67 % [facility] Platelet mean volume (Bld) [Entitic vol] 8.9 fL 7 - 12 fL [facility] Platelets (Bld) [#/Vol] 224 10*3/uL [facility] RBC (Bld) [#/Vol] 4.69 10*6/uL [facility] WBC corrected for nucl RBC Auto (Bld) [#/Vol] 9.3 [facility] Basophils (Bld) [#/Vol] 0.1 10*3/uL [facility] Basophils/100 WBC (Bld) 0.7 % [facility] Eosinophils (Bld) [#/Vol] 0 10*3/uL [facility] Eosinophils/100 WBC (Bld) 0.1 % [facility] Erythrocyte distribution width (RBC) [Ratio] 16 % High 11.5 - 15.0 % [facility] Hematocrit (Bld) [Volume fraction] 43.5 % 35 - 47 % [facility] Hemoglobin (Bld) [Mass/Vol] 14.5 g/dL 11.7 - 15.5 g/dL [facility] Interpretation and review of laboratory results Abnormal [facility] Lymphocytes (Bld) [#/Vol] 1.8 10*3/uL [facility] Lymphocytes/100 WBC (Bld) 17.5 % [facility] MCH (RBC) [Entitic mass] 30.7 pg 27 - 34 pg [facility] MCHC (RBC) [Mass/Vol] 33.3 g/dL 32 - 3 6 g/dL [facility] MCV (RBC) [Entitic vol] 92 fL 80 - [address] [facility] Monocytes (Bld) [#/Vol] 1 10*3/uL High [facility] Monocytes/100 WBC (Bld) 9.9 % [facility] Neutrophils (Bld) [#/Vol] 7.4 10*3/uL High [facility] Neutrophils/100 WBC (Bld) 71.8 % [facility] Platelet mean volume (Bld) [Entitic vol] 9.3 fL 7 - [address] [facility] Platelets (Bld) [#/Vol] 235 10*3/uL [facility] RBC (Bld) [#/Vol] 4.71 10*6/uL [facility] WBC corrected for nucl RBC Auto (Bld) [#/Vol] 10.4 [facility] Comprehensive metabolic pane meagan 03-02-2024 Albumin [Mass/Vol] 3.9 g/dL 3.2 - 5.3 g/dL [facility] ALP [Catalytic activity/Vol] 58 U/L 39 - 130 U/L [facility] ALT No additional P-5'-P [Catalytic activity/Vol] 15 U/L 0 - 31 U/L [facility] Anion gap [Moles/Vol] 11 mmol/L 5 - 15 mmol/L [facility] AST [Catalytic activity/Vol] 15 U/L 0 - 41 U/L [facility] Bilirubin [Mass/Vol] 0.3 mg/dL 0.3 - 1 .2 mg/dL [facility] Calcium [Mass/Vol] 9.5 mg/dL 8.5 - 10. 5 mg/dL [facility] Chloride [Moles/Vol] 107 mmol/L 98 - 10 9 mmol/L [facility] CO2 [Moles/Vol] 23 mmol/L 22 - 32 mmol/L [facility] Creatinine [Mass/Vol] 1.36 mg/dL High 0.40 - 1.00 mg/dL [facility] Comment on above: METHOD TRACEABLE TO [facility] STANDARD eGFR (CKD-EPI)non-race dependent 40 Low - PINF [facility] Comment on above: Reported eGFR is based on the CKD-EPI 2021 equation that does not use a race coefficient. Glucose [Mass/Vol] 84 mg/dL 65 - 99 mg/dL [facility] Interpretation and review of laboratory results Abnormal [facility] Potassium [Moles/Vol] 4 mmol/L 3.5 - 5.0 mmol/L [facility] Protein [Mass/Vol] 6.1 g/dL 6.0 - 8.0 g/dL [facility] Sodium [Moles/Vol] 141 mmol/L 134 - 146 mmol/L [facility] Urea nitrogen [Mass/Vol] 30 mg/dL High 5 - 27 mg/dL [facility] Albumin [Mass/Vol] 4 g/dL 3.2 - 5.3 g/dL [facility] ALP [Catalytic activity/Vol] 62 U/L 39 - 130 U/L [facility] ALT No additional P-5'-P [Catalytic activity/Vol] 15 U/L 0 - 31 U/L [facility] Anion gap [Moles/Vol] 12 mmol/L 5 - 15 mmol/L [facility] AST [Catalytic activity/Vol] 17 U/L 0 - 41 U/L [facility] Bilirubin [Mass/Vol] 0.4 mg/dL 0.3 - 1 .2 mg/dL [facility] Calcium [Mass/Vol] 9.7 mg/dL 8.5 - 10. 5 mg/dL [facility] Chloride [Moles/Vol] 103 mmol/L 98 - 10 9 mmol/L [facility] CO2 [Moles/Vol] 23 mmol/L 22 - 32 mmol/L [facility] Creatinine [Mass/Vol] 1.45 mg/dL High 0.40 - 1.00 mg/dL [facility] Comment on above: METHOD TRACEABLE TO [facility] STANDARD eGFR (CKD-EPI)non-race dependent 37 Low - PINF [facility] Comment on above: Reported eGFR is based on the CKD-EPI 2021 equation that does not use a race coefficient. Glucose [Mass/Vol] 85 mg/dL 65 - 99 mg/dL [facility] Interpretation and review of laboratory results Abnormal [facility] Potassium [Moles/Vol] 4.8 mmol/L 3.5 - 5.0 mmol/L [facility] Protein [Mass/Vol] 6.5 g/dL 6.0 - 8.0 g/dL [facility] Sodium [Moles/Vol] 138 mmol/L 134 - 146 mmol/L [facility] Urea nitrogen [Mass/Vol] 29 mg/dL High 5 - 27 mg/dL [facility] DISCONTINUE IN PROCESS EEG T ESTINGOrdered By: Documentation Systemgenerated on 03-02-[address] [facility] Work Phone: Holter monitor studyon 03-02 Images from the orig inal result were not included. [facility] Video/EEG Monitoring REPORT EEG Service Date(s): 03/02/24 from 06:05 until 11:16 Date of Report: 03/02/24 History: Aaron Lewis is 79 y.o. female with acute shingles and confusion who is undergoing video/EEG monitoring to evaluate for seizures. Centrally active medications: Buspar, nortriptyline. Procedure: This video/EEG monitoring was acquired with electrodes placed according to the [id number] electrode placement system,using collodion. The EEG was reviewed using multiple, reformattable montages. Closed captioned video monitoring of behavior, synchronous with EEG recording is included in the analysis, as is digital/spectral analysis of EEG waveforms. A single EKG channel was recorded for cardiac rhythm monitoring. Technical description: Background is composed of 5 V occasional frontal and centrally predominant beta frequency intermixed with 25-50 V generalized theta and polymorphic delta frequencies. No sustained alpha frequency or posterior dominant rhythm is noted. No epileptiform abnormalities are noted in the form of spikes or sharp waves. No electrographic seizure activity is recorded. No clear sleep stages are identified. Events: None marked. EEG diagnosis: This video/EEG monitoring is abnormal due to the presence of moderate generalized background slowing. EEG interpretation: This video/EEG monitoring is abnormal due to the presence of moderate generalized background slowing, consistent with encephalopathy of nonspecific etiology. The absence of epileptiform abnormalities does not exclude the possibility of intermittent seizures. Video/EEG monitoring was discontinued on this day. Dina Lucio M.D., Ph.D. Life Science Technical Officer [facility] MANUALLY TRANSCRIBED RESULTS [employer] Images from the orig inal result were not included. [facility] Video/EEG Monitoring REPORT EEG Service Date(s): 03/02/24 from 02:47 until 06:05 Date of Report: 03/02/24 History: Aaron Lewis is 79 y.o. female with acute shingles and confusion who is undergoing video/EEG monitoring to evaluate for seizures. Centrally active medications: Buspar, nortriptyline. Procedure: This video/EEG monitoring was acquired with electrodes placed according to the [id number] electrode placement system,using collodion. The EEG was reviewed using multiple, reformattable montages. Closed captioned video monitoring of behavior, synchronous with EEG recording is included in the analysis, as is digital/spectral analysis of EEG waveforms. A single EKG channel was recorded for cardiac rhythm monitoring. Technical description: Background is composed of 5 V occasional frontal and centrally predominant beta frequency intermixed with 25-50 V generalized theta and polymorphic delta frequencies. No sustained alpha frequency or posterior dominant rhythm is noted. No epileptiform abnormalities are noted in the form of spikes or sharp waves. No electrographic seizure activity is recorded. No clear sleep stages are identified. Events: None marked. EEG diagnosis: This video/EEG monitoring is abnormal due to the presence of moderate generalized background slowing. EEG interpretation: This video/EEG monitoring is abnormal due to the presence of moderate generalized background slowing, consistent with encephalopathy of nonspecific etiology. The absence of epileptiform abnormalities does not exclude the possibility of intermittent seizures. Dina Lucio M.D., Ph.D. Life Science Technical Officer [facility] MANUALLY TRANSCRIBED RESULTS Holter monitor studyOrdered By: Dina Lucio on 03-02-2024 [employer] Work Phone: MR Brain WO and W contrast I Von 03-02-2024 EXAM: MR BRAIN W WO CONT TECHNIQUE: Routine multiplanar multisequence MR imaging of the brain was performed prior to and following the uneventful administration of intravenous contrast. CLINICAL HISTORY: Clinical concern for herpes encephalitis. COMPARISON: Noncontrast head CT dated 03/01/2024 FINDINGS: There is no restricted diffusion. There is a background of white matter changes of chronic ischemic small vessel disease. There are 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 The cortical mckeon-white matter differentiation is preserved. There is no enhancing intracranial mass or mass effect. The ventricles are proportional to the overall brain volume without evidence for outflow obstruction. There is no shift of the midline structures and the basal cisterns are widely patent. There is no susceptibility to suggest the presence of intracranial blood degradation products. The midline structures and craniocervical junction are within normal limits. The paranasal sinuses are well aerated. The mastoids are clear. IMPRESSION: 1. No acute abnormalities. There is no evidence for encephalitis, as clinically questioned. 2. White matter changes of chronic ischemic small vessel disease with 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 There is no evidence for an acute infarct. 3. No enhancing intracranial mass or mass effect. Finalized by Migue Driver MD on 03/02/2024 6:58 PM [facility] Migue Driver MD - 03/02/2024 EXAM: MR BRAIN W WO CONT TECHNIQUE: Routine multiplanar multisequence MR imaging of the brain was performed prior to and following the uneventful administration of intravenous contrast. CLINICAL HISTORY: Clinical concern for herpes encephalitis. COMPARISON: Noncontrast head CT dated 03/01/2024 FINDINGS: There is no restricted diffusion. There is a background of white matter changes of chronic ischemic small vessel disease. There are 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 The cortical mckeon-white matter differentiation is preserved. There is no enhancing intracranial mass or mass effect. The ventricles are proportional to the overall brain volume without evidence for outflow obstruction. There is no shift of the midline structures and the basal cisterns are widely patent. There is no susceptibility to suggest the presence of intracranial blood degradation products. The midline structures and craniocervical junction are within normal limits. The paranasal sinuses are well aerated. The mastoids are clear. IMPRESSION: 1. No acute abnormalities. There is no evidence for encephalitis, as clinically questioned. 2. White matter changes of chronic ischemic small vessel disease with 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 There is no evidence for an acute infarct. 3. No enhancing intracranial mass or mass effect. Finalized by Migue Driver MD on 03/02/2024 6:[address] [facility] Radiology Study observation (narrative) [facility] MR Brain WO and W contrast I VOrdered By: Migue Driver on 03-02-[address] [facility] Work Phone: Protime & INRon 03-02-2024 INR Coag (PPP) [Relative time] 0.9 {INR} [facility] PT Coag (PPP) [Time] 10.6 s [facility] Basophils Auto (Bld) [#/Vol] on 03-01-2024 Basophils (Bld) [#/Vol] 0.0 10 3/uL 0.0-0.1 [facility] Basophils (Bld) [#/Vol] Automated basophil count 0.0-0.1 [facility] Basophils/100 WBC Auto (Bld) on 03-01-2024 Basophils/100 WBC (Bld) 0.3 % 0.2-2.0 [facility] Basophils/100 WBC (Bld) Automated basophil % 0.2-2.0 [facility] Eosinophils/100 WBC Auto (Bl d)on 03-01-2024 Eosinophils/100 WBC (Bld) 0.1 % Low 0.9-7.0 [facility] Eosinophils/100 WBC (Bld) Automated eosinophil % Low 0.9-7.0 [facility] Erythrocyte distribution wid th Auto (RBC) [Ratio]on 03-01-2024 Erythrocyte distribution width (RBC) [Ratio] 15.3 % High 11.0-15.0 [facility] Erythrocyte distribution width (RBC) [Ratio] Erythrocyte distribution width [Ratio] by Automated count High 11.0-15.0 [facility] Estimated glomerular filtrat ion rate (GFR) non- Americanon 03-01-2024 GFR/1.73 sq M.predicted among non-blacks MDRD (S/P/Bld) [Vol rate/Area] 26 mL/min/{1.73_m2} Low >=60 mL/min/1.7 3m 2 [facility] GFR/1.73 sq M.predicted among non-blacks MDRD (S/P/Bld) [Vol rate/Area] Estimated glomerular filtration rate (GFR) non- Low >=60 mL/min/1.7 3m 2 [facility] Globulin Calc (S) [Mass/Vol] on 03-01-2024 Globulin (S) [Mass/Vol] 3.5 g/dL [facility] Globulin (S) [Mass/Vol] Serum globulin measurement by calculation (mass/volume) [facility] Hematocrit Auto (Bld) [Volum e fraction]on 03-01-2024 Hematocrit (Bld) [Volume fraction] 46.0 % 36.0-48.0 [facility] Hematocrit (Bld) [Volume fraction] Hematocrit [Volume Fraction] of Blood by Automated count 36.0-48.0 [facility] Hemoglobin [Mass/volume] in Bloodon 03-01-2024 Hemoglobin (Bld) [Mass/Vol] 14.8 g/dL 12.0-16.0 [facility] Hemoglobin (Bld) [Mass/Vol] Hemoglobin [Mass/volume] in Blood 12.0-16.0 [facility] INR in Platelet poor plasma by Coagulation assayon 03-01-2024 INR Coag (PPP) [Relative time] 0.97 {INR} [facility] Comment on above: DESIRED INR:2.0-3.0 CONDITIONS NOT LISTED BELOW2.5-3.5 FOR PROSTHETIC HEART VALVE REPLACEMENT2.5-3.5 RECURRENT THROMBOSIS INR Coag (PPP) [Relative time] INR in Platelet poor plasma by Coagulation assay [facility] Comment on above: DESIRED INR:2.0-3.0 CONDITIONS NOT LISTED BELOW2.5-3.5 FOR PROSTHETIC HEART VALVE REPLACEMENT2.5-3.5 RECURRENT THROMBOSIS Laboratory - Chemistry and C hemistry - challengeon 03-01-2024 Bilirubin Ql (U) Negative NEGATIVE [facility] Glucose (U) [Mass/Vol] Negative NE[facility]IVE [facility] Ketones Ql (U) TRACE mg/dL Abnormal NEGATIVE [facility] pH (U) 6.0 [pH] 5.0-9.0 [facility] Specific gravity (U) [Rel density] 1.020 1.005-1.02 5 [facility] Urobilinogen Qn (U) 0.2 {Nevaeh'U}/dL 0.2-1.0 [facility] Albumin [Mass/Vol] 3.5 g/dL 3.4-5.0 [facility] ALP [Catalytic activity/Vol] 76 U/L 46-116 [facility] ALT [Catalytic activity/Vol] 24 U/L 14-59 [facility] AST [Catalytic activity/Vol] 15 U/L 15-37 [facility] Bilirubin [Mass/Vol] 0.5 mg/dL 0.2-1.0 [facility] Calcium [Mass/Vol] 10.3 mg/dL High 8.5-10.1 [facility] Chloride [Moles/Vol] 103 mmol/L 98-107 [facility] CO2 [Moles/Vol] 19.7 mmol/L Low 21.0-32.0 [facility] Creatinine [Mass/Vol] 1.86 mg/dL High 0.55-1.02 [facility] GFR/1.73 sq M.predicted MDRD (S/P/Bld) [Vol rate/Area] 32 mL/min/{1.73_m2} Low >=60 mL/min/1.7 3m 2 [facility] Glucose [Mass/Vol] 105 mg/dL 74-106 [facility] Lactate [Moles/Vol] 1.1 mmol/L 0.4-2.0 [facility] Magnesium [Mass/Vol] 2.8 mg/dL High 1.8-2.4 [facility] Potassium [Moles/Vol] 4.8 mmol/L 3.5-5.1 [facility] Protein [Mass/Vol] 7.0 g/dL 6.4-8.2 [facility] Sodium [Moles/Vol] 138 mmol/L 136-145 [facility] Urea nitrogen [Mass/Vol] 29.0 mg/dL High 7.0-18.0 [facility] Urea nitrogen/Creatinine [Mass ratio] 15.6 mg/mg [facility] Laboratory - Hematology and Cell countson 03-01-2024 Immature granulocytes/100 WBC (Bld) 0.7 % High 0.0-0.5 [facility] Laboratory - Specimen inform ationon 03-01-2024 Appearance (U) CLEAR CLEAR [facility] Color (U) LT. YELLOW YELLOW [facility] Laboratory - Urinalysison Leukocyte esterase Test strip Ql (U) Negative NEGATIVE [facility] Nitrite Ql (U) Negative NEGATIVE [facility] Protein Ql (U) Negative NEG/TRACE [facility] Leukocytes [#/volume] correc kyleigh for nucleated erythrocytes in Blood by Automated counon 03-01-2024 WBC corrected for nucl RBC Auto (Bld) [#/Vol] 9.8 10 3/uL 4.0-11.0 [facility] WBC corrected for nucl RBC Auto (Bld) [#/Vol] Leukocytes [#/volume] corrected for nucleated erythrocytes in Blood by Automated coun 4.0-11.0 [facility] Lymphocytes Auto (Bld) [#/Vo l]on 03-01-2024 Lymphocytes (Bld) [#/Vol] 1.2 10 3/uL 1.2-3.8 [facility] Lymphocytes (Bld) [#/Vol] Lymphocytes [#/volume] in Blood by Automated count 1.2-3.8 [facility] Lymphocytes/100 WBC Auto (Bl d)on 03-01-2024 Lymphocytes/100 WBC (Bld) 12.3 % Low 20.5-60.0 [facility] Lymphocytes/100 WBC (Bld) Lymphocytes/100 leukocytes in Blood by Automated count Low 20.5-60.0 [facility] MCH Auto (RBC) [Entitic mass ]on 03-01-2024 MCH (RBC) [Entitic mass] 29.7 pg 26.7-34.0 [facility] MCH (RBC) [Entitic mass] MCH [Entitic mass] by Automated count 26.7-34.0 [facility] MCHC Auto (RBC) [Mass/Vol]on 03-01-2024 MCHC (RBC) [Mass/Vol] 32.2 g/dL 29.9-35.2 [facility] MCHC (RBC) [Mass/Vol] MCHC [Mass/volume] by Automated count 29.9-35.2 [facility] MCV Auto (RBC) [Entitic vol] on 03-01-2024 MCV (RBC) [Entitic vol] 92.4 fL 81.0-99.0 [facility] MCV (RBC) [Entitic vol] MCV [Entitic volume] by Automated count 81.0-99.0 [facility] Monocytes Auto (Bld) [#/Vol] on 03-01-2024 Monocytes (Bld) [#/Vol] 0.8 10 3/uL 0.3-0.8 [facility] Monocytes (Bld) [#/Vol] Automated blood monocyte count 0.3-0.8 [facility] Monocytes/100 WBC Auto (Bld) on 03-01-2024 Monocytes/100 WBC (Bld) 8.1 % 1.7-12.0 [facility] Monocytes/100 WBC (Bld) Automated monocyte % 1.7-12.0 [facility] Neutrophils Auto (Bld) [#/Vo l]on 03-01-2024 Neutrophils (Bld) [#/Vol] 7.7 10 3/uL High 1.4-6.5 [facility] Neutrophils (Bld) [#/Vol] Neutrophils [#/volume] in Blood by Automated count High 1.4-6.5 [facility] Neutrophils/100 WBC Auto (Bl d)on 03-01-2024 Neutrophils/100 WBC (Bld) 78.5 % High 43.0-75.0 [facility] Neutrophils/100 WBC (Bld) Automated neutrophil % High 43.0-75.0 [facility] No Panel Informationon 03-01 Urine Microscopic Review NO [facility] Urine Occult Blood Negative NEGATIVE [facility] Eosinophils # (Auto) 0.0 10 3/uL 0.0-0.7 [facility] Immature Granulocyte # (Auto) 0.07 10 3/uL High 0.00-0.03 [facility] Platelet mean volume Auto (B ld) [Entitic vol]on 03-01-2024 Platelet mean volume (Bld) [Entitic vol] 10.9 fL 9.5-13.5 [facility] Platelet mean volume (Bld) [Entitic vol] Platelet mean volume [Entitic volume] in Blood by Automated count 9.5-13.5 [facility] Platelets Auto (Bld) [#/Vol] on 03-01-2024 Platelets (Bld) [#/Vol] 276 10 3/uL 150-450 [facility] Platelets (Bld) [#/Vol] Platelets [#/volume] in Blood by Automated count 150-450 [facility] Prothrombin time (PT)on 02-11 PT Coag (PPP) [Time] 10.3 s 9.0-11.6 [facility] PT Coag (PPP) [Time] Prothrombin time (PT) 9.0- 11.6 [facility] RBC Auto (Bld) [#/Vol]on RBC (Bld) [#/Vol] 4.98 10 6/uL 4.20-5.40 [facility] RBC (Bld) [#/Vol] Erythrocytes [#/volu me] in Blood by Automated count 4.20-5.40 [facility] Serum or plasma albumin/glob ulin mass ratioon 03-01-2024 Albumin/Globulin [Mass ratio] 1.0 {ratio} [facility] Albumin/Globulin [Mass ratio] Serum or plasma albumin/globulin mass ratio [facility] Serum or plasma anion gap de terminationon 03-01-2024 Anion gap [Moles/Vol] 20.1 mmol/L [facility] Anion gap [Moles/Vol] Serum or plasma an ion gap determination [facility] Patient Letter FTon 2023 Patient Letter [facility] Patient Letter [facility] January 28, 2024 AARON LEWIS [address] [place] [address] : 1945 Dear Aaron Lewis, We have been trying to reach you with no success. It is important that you return our call upon receiving this letter. Also, at the time of your call, please provide us with your current information. Thank you for your prompt attention to this matter. Sincerely, [facility] [address] [place] [address] [facility] Ambulatory Visit Summaryon 0 12-25-2023 Ambulatory Visit [...] MARIN PA-C, URL When: Where: [address] [place] [address] [phone] Medications What How Much When Instructions Unchanged acetaminophen-oxycodone (acetaminophen-oxycodone 325 mg-2.5 mg oral tablet) [...] tubing an (more content not included)... Normal [facility] Urology Office/Clinic Noteon 12-25-2023 Urology [...] change this. States she has not had significant/noticeable improvement post-op botox. Educated pt peak efficacy [...] Contact Information MIAH ROE, BRENDA Poole, URL [address] [address] [phone] Additional Instructions: nurse visit in 1 wk w/ PVR, will call pt to schedule f/u Patient Education Injection Treatments for Urinary Incontinence, Care After Documentation recorded by the umm Colon accurately reflects the services(s) I performed and decisions made by me. Authenticated by Brenda Marin PA-C on 12/25/2023 13:09:13. Abby Zhang, personally scribed for Brenda Marin [...] than 30 (more content not included)... Normal [facility] Comment on above: Result Comment: Elec tronically Signed By: BRENDA MARIN PA-C\.br\Date and Time Signed: 12/25/23 13:09 EDT\.br\Electronically Co-Signed By: Abby Colon\.br\Date and Time Co-Signed: 12/25/23 13:07 EDT Estimated glomerular filtrat ion rate (GFR) non- Americanon 12-18-2023 GFR/1.73 sq M.predicted among non-blacks MDRD (S/P/Bld) [Vol rate/Area] 50 mL/min/{1.73_m2} Low >=60 [facility] Laboratory - Chemistry and C hemistry - challengeon 12-18-2023 Creatinine [Mass/Vol] 1.07 mg/dL High 0.55-1.02 [facility] GFR/1.73 sq M.predicted MDRD (S/P/Bld) [Vol rate/Area] mL/min/{1.73_m2} >=60 [facility] Inpatient Patient Summaryon 12-03-2023 Inpatient Patient Summary Inpatient Patient Summary [address] [address] Clinical Summary Person Information Name: AARON LEWIS Age: 78 Years : 1945 Sex: Female PCP: JEREMIAH REED MD Marital Status: Phone: [phone] Race: White Ethnicity: Non- or Language: Icelandic Visit Id: Visit Reason: URINARY INCONTINENCE Speciality: Acuity: Enc Type: Outpatient Med Service: Surgery Arrival: 12/03/2023 13:41:56 Discharge: Dispo Type: Address: [address] [place] [address] [address] [place] [phone] Provider Notes: Diagnosis: Problems Active Recurrent UTI [...] Immunizations Documented This Visit Final Med List: acetaminophen-oxycodone (acetaminophen-oxycodone 325 mg-2.5 mg oral tablet) [...] day. Care Team Members: Attending Physician: Cayden GALLO MD Consulting Physician: Referring Physician: Cayden GALLO MD Follow up: With: Address: When: BRENDA MARIN [address] [facility] [place] [phone] [facility] (1) Comments: Call for followup appointment with Georgette Marin PA-C within the next three weeks or so. Push fluids to keep the urine clear. Expect the Botox to start working within the next 2-3 weeks. Have a great day! Patient Education Information: EU - Cystoscopy with Botox Injection Discharge Instructions (Custom) [facility] Main OR Intraoperative Recor don 12-03-2023 Main OR Intraoperative Record Main OR Intraoperative Record IntraOp Document Type FTURO Summary Primary Physician: Cayden GALLO MD Finalized Date/Time: 12/03/23 14:30:52 Pt. Name: AARON LEWIS/Sex: 1945 Female Med Rec #: [id number] Physician: Cayden GALLO MD Financial #: [id number] Pt. Type: O Room/Bed: / Admit/Disch: 12/03/23 13:41:56 - Institution: Case Times FTURO Entry 1 Patient Times In Room 12/03/23 14:15:00 Out Room 12/03/23 14:30:00 Procedure Times Start 12/03/23 14:21:00 Stop 12/03/23 14:23:00 Anesthesia Times Last Modified By: Neva Palacio 12/03/23 14:30:41 General Comments: BOTOX 100 UNITS EXP: LOT: [id number].GIORGIO MELENDEZ. Case Attendance FTURO Entry 1 Entry 2 Entry 3 Case Attendee CEZAR BERNAL, Neva Tyler CST, Kimberly A Role Performed Surgeon - Primary Flight Control Specialist - Primary Scrub - Primary Time [...] UNITS Primary Procedure Yes Primary Surgeon Cayden GALLO MD Start 12/03/23 14:21:00 Stop 12/03/23 14:23:00 [...] Verified Availability Equipment, Medication Time Out Cayden GALLO MD, Verified (If Participants Neva Palacio, Applicable) [...] 12/03/23 14:30 Neva Palacio 12/03/23 14:[address] [facility] Main OR Preoperative Recordo n 12-03-2023 Main OR Preoperative Record Main OR Preoperative Record Holding Area Document Type FTURO Summary Primary Physician: Cayden GALLO MD Finalized Date/Time: 12/03/23 14:21:15 Pt. Name: AARON LEWIS/Sex: 1945 Female Med Rec #: [id number] Physician: Cayden GALLO MD Financial #: [id number] Pt. Type: O Room/Bed: / Admit/Disch: 12/03/23 [...] Complaints of Pain: No Skin Integrity Intact, [place], Warm, & Dry Vitals - EU Blood [...] 12/03/23 14:03 Neva Palacio 12/03/23 14:[address] [facility] Operative Reporton Operative Report Operative Report Patient: AARON LEWIS Age: 78 years Sex: Female : 1945 Associated Diagnoses: None Author: Cayden GALLO MD Procedure Operative Information Details: Date/ Time: 12/03/2023 14:28:00. 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 Post-Op Dx: Same. Anesthesia Type: Local. Procedure: Local Cystoscopy with botox injection. Complications: None. Risks/Benefits/Informed Consent: Surgical risks, benefits, details of the [...] about 3 weeks. Finish abx. . Normal [facility] Comment on above: Result Comment: Elec tronically Signed By: Cayden GALLO MD\.br\Date and Time Signed: 12/03/23 14:29 EDT Outpatient Surgery Discharge Instructionon 12-03-2023 Outpatient Surgery Discharge Instruction Outpatient Surgery Discharge Instruction [place] [id number] Patient Discharge Instructions PERSON INFORMATION Name: AARON LEWIS Date of : 1945 Current Date: 12/03/2023 14:28:09 PHYSICIANS Admitting Physician: Cayden GALLO MD Comment: Discharge Diagnosis: AARON LEWIS has been given the following list of follow-up instructions, prescriptions, and patient education materials: IF UNABLE TO CONTACT YOUR PHYSICIAN AND YOU FEEL IT IS AN EMERGENCY, GO TO THE NEAREST EMERGENCY ROOM OR CALL 911 Follow up: With: Address: When: [facility] [address] [place] [phone] [facility] (1) Comments: Call for followup appointment with [...] you have a fever over 100 degrees. ITAHIRA CYNTHIA J, have received the attached patient education materials/instructions and have verbalized understanding: May we do a follow up call? Yes No I was present when discharge instructions were given Patient Signature _ Date Clinican/Nurse Signature Date You may receive a survey from Conner Willett asking you to rate your care experience. Your feedback is important and will help us understand what we do well and how we can improve the quality of care we provide to you, your loved ones and our community. It?s an honor to serve you. Thank you for choosing [facility] Normal [facility] Ambulatory Visit Summaryon 0 09-26-2023 [...] flaquita kaplan/ Where: [address] [place] [phone] Medications What How Much When Instructions Unchanged acetaminophen-oxycodone (acetaminophen-oxycodone 325 mg-2.5 mg oral tablet) [...] including vitamins, herbs, eye drops, creams, and mdpm-cve-seywlbd medicines. ? Any problems you or family [...] are or (more content not included)... Normal [facility] Patient Educationon 09-26-19 Patient Education [...] including vitamins, herbs, eye drops, creams, and xaju-vtr-mntwxag medicines. ? Any problems you or family [...] tells you to take them. ? Taking wkiy-bxv-abdwiby medicines, vitamins, herbs, and supplements. General instructions [...] these instructions at home: Medicines ? Take vsub-zoj-qabuhoz and prescription medicines only as told by [...] health ca (more content not included)... Normal [facility] Urology Office/Clinic Noteon 09-26-2023 Urology [...] this. Does not leak. Very bothered by frequency/urgency/nocturia . Rx sent for Gemtesa/Myrbetriq at prior OV. However both options were cost prohibitive. Pt is interested in Botox. Discussed risks/benefits/procedural details at length. Pt asked meaningful questions. [...] Contact Information MIAH ROE, BRENDA Poole, URL [address] [facility] [place] [address] [phone] Additional Instructions: flaquita Girard w/ Patient Education [...] tobacco c (more content not included)... Normal [facility] Comment on above: Result Comment: [...] MARIN PA-C This Is Your Medications List acetaminophen-oxycodone (acetaminophen-oxycodone 325 mg-2.5 mg oral tablet) [...] Duration: 30 Days Refills: 11 Pickup at [facility]/pharmacy #[id number] New vibegron (Gemtesa 75 mg oral tablet) 1 Tablets By Mouth Every day Urethral stricture OAB (overactive bladder) Recurrent UTI Duration: 30 Days Refills: 11 Pickup at [facility]/pharmacy #[id number] Unchanged acetaminophen-oxycodone (acetaminophen-oxycodone 325 mg-2.5 mg oral tablet) [...] Capsules By Mouth Every day Pharmacy Information [facility]/pharmacy #[id number]: [address], [place] [phone] Allergies No Known Allergies Problems Ongoing - [...] you for choosing us for your care. [facility] Patient Educationon 08-28-19 Patient Education Obstetrics and Gynec ology Overactive Bladder, Adult Overactive bladder is a [...] health care provider. General instructions ? Take leil-ntw-woxxrkw and prescription medicines only as told by [...] monitor yo (more content not included)... Normal [facility] Urology Office/Clinic Noteon 08-28-2023 Urology [...] not leak she is very bothered by frequency/urgency/nocturia . Has failed Ditropan, Tolterodine, and Vesicare. Does [...] day(s), # 30 tab(s), Refills(s) 11, Pharmacy: [facility]/pharmacy #[id number], 165, cm, 08/28/23 15:03:00 EDT, Height/Length Dosing, 90, kg, 08/28/23 15:03:00 EDT, Weight Dosing vibegron, 75 mg = 1 tab(s), Oral, Daily, X 30 day(s), # 30 tab(s), Refills(s) 11, Pharmacy: [facility]/pharmacy #[id number], 165, cm, 08/28/23 15:03:00 EDT, Height/Length Dosing, 90, kg, 08/28/23 15:03:00 EDT, Weight Dosing 66785 Measure Post Void residual urine and/or bladder capacity by US- non-imaging Body Mass Index (BMI) documented 3008F Complex E&M Add on G2211 Current tobacco non-user 1036F Depression Screening Negative 3352F E&M of Est. Patient Moderate 30-39 Min 67661 Influenza immunization status assessed 1030F Medication list [...] Urnls Dip Stick Auto w/o Microscopy POC 95484 2. Urethral stricture (N35.919: Unspecified urethral stricture, [...] day(s), # 30 tab(s), Refills(s) 11, Pharmacy: [facility]/pharmacy #[id number], 165, cm, 08/28/23 15:03:00 EDT, Height/Length Dosing, 90, kg, 08/28/23 15:03:00 EDT, Weight Dosing vibegron, 75 mg = 1 tab(s), Oral, Daily, X 30 day(s), # 30 tab(s), Refills(s) 11, Pharmacy: [facility]/pharmacy #[id number], 165, cm, 08/28/23 15:03:00 EDT, Height/Length Dosing, 90, kg, 08/28/23 15:03:00 EDT, Weight Dosing 16975 Measure Post Void residual urine and/or bladder capacity by US- non-imaging Body Mass Index (BMI) documented 3008F Complex E&M Add on G2211 Current tobacco non-user 1036F Depression Screening Negative 3352F E&M of Est. Patient Moderate 30-39 Min 55201 Influenza immunization status assessed 1030F Medication list [...] 50k Proteus (more content not included)... Normal [facility] Comment on above: Result Comment: Elec tronically Signed By: MIAH ROE, BRENDA Poole\.mario\Date and Time Signed: 08/28/23 15:38 EDT Physician Orderon 08-02-2023 Physician Order [id number]#[id number] Normal [facility] Consent for Procedure/Surger yon 07-23-2023 Consent for Procedure/Surgery [id number]#[id number] Normal [facility] Consent for Treatmenton 07-12 Consent for Treatment [id number]#[id number] Normal [facility] Inpatient Patient Summaryon 07-23-2023 Inpatient Patient Summary [address] [address] Clinical Summary Person Information Name: AARON LEWIS Age: 78 Years : 1945 Sex: Female PCP: JEREMIAH REED MD Marital Status: Phone: [phone] Race: White Ethnicity: Non- or Language: Icelandic Visit Id: Visit Reason: URETHER STRICTURE AND RECURRENT UTI Speciality: Acuity: Enc Type: Outpatient Med Service: Surgery Arrival: 07/23/2023 13:44:06 Discharge: Dispo Type: Address: [address] [place] [address] [address] [place] [phone] Provider Notes: Diagnosis: Problems Active Recurrent UTI [...] Immunizations Documented This Visit Final Med List: acetaminophen-oxycodone (acetaminophen-oxycodone 325 mg-2.5 mg oral tablet) [...] day. Care Team Members: Attending Physician: Cayden GALLO MD Consulting Physician: Referring Physician: Cayden GALLO MD Follow up: With: Address: When: BRENDA MARIN [address] [facility] [place] [phone] Business (1) Comments: Call for followup appointment with Georgette Marin PA-c within the next 2 months or so to monitor you. Please finish your antibiotics and have a great day. Patient Education Information: EU - Cystoscopy with Urethral Dilation Discharge Instructions (Custom) [facility] IntraOperative Documentson 0 07-23-2023 IntraOperative Documents [id number] Normal [facility] Main OR Intraoperative Recor don 07-23-2023 Main OR Intraoperative Record IntraOp Document Type FT[facility]O Summary Primary Physician: Cayden GALLO MD Finalized Date/Time: 07/23/23 14:33:02 Pt. Name: AARON LEWIS Flori Muñiz./Sex: 1945 Female Med Rec #: [id number] Physician: Cayden GALLO MD Financial #: [id number] Pt. Type: O Room/Bed: / Admit/Disch: 07/23/23 13:44:06 - Institution: Case Times FTURO Entry 1 Patient Times In Room 07/23/23 14:19:00 Out Room 07/23/23 14:31:00 Procedure Times Start 07/23/23 14:22:00 Stop 07/23/23 14:26:00 Anesthesia Times Last Modified By: Jonh ALVARES, Crissy Hollins 07/23/23 14:26:23 Case Attendance FTURO Entry 1 Entry 2 Entry 3 Case Attendee Cayden GALLO MD, RN, Son Tellez Role Performed Surgeon - Primary Flight Control Specialist - Primary Scrub - Primary Time [...] DILATION Primary Procedure Yes Primary Surgeon Cayden GALLO MD 07/23/23 14:07:00 Stop 07/23/23 14:26:00 Anesthesia Type [...] Verified Availability Equipment, Medication Time Out Cayden GALLO MD, Verified (If Participants Crissy Borja RN [...] By: Crissy Borja RN 07/23/23 14:[address] [facility] Main OR Preoperative Recordo n 07-23-2023 Main OR Preoperative Record Holding Area Document Type FT[facility]O Summary Primary Physician: Cayden GALLO MD Finalized Date/Time: 07/23/23 14:14:06 Pt. Name: AARON LEWIS/Sex: 1945 Female Med Rec #: [id number] Physician: Cayden GALLO MD Financial #: [id number] Pt. Type: O Room/Bed: / Admit/Disch: 07/23/23 [...] JOSE Markham RN, Ruthann 07/23/23 14:[address] [facility] Operative Reporton Operative Report Patient: Alessandro LEWIS Age: 78 years Sex: Female : 1945 Associated Diagnoses: None Author: Cayden GALLO MD Procedure Operative Information Details: Date/ Time: 07/23/2023 14:29:00. Pre-Op Dx: Recurrent UTI (RMV05-JE N39.0, Working, Medical), Unspecified urethral stricture, female (WXA55-YL N35.92, Working, Medical), Overactive bladder (PMD15-LD N32.81, Working, Medical). Post-Op Dx: Same. Anesthesia Type: Local. Procedure: Local Cystoscopy with Urethral Dilation. Complications: None. Risks/Benefits/Informed Consent: Surgical risks, benefits, details of the [...] also to decrease UTI frequency. . Normal [facility] Comment on above: Result Comment: Elec tronically Signed By: Cyaden GALLO MD\.br\Date and Time Signed: 07/23/23 14:30 EDT Outpatient Surgery Discharge Instructionon 07-23-2023 Outpatient Surgery Discharge Instruction [address] [address] Patient Discharge Instructions PERSON INFORMATION Name: AARON LEWIS Date of : 1945 Current Date: 07/23/2023 14:28:53 PHYSICIANS Admitting Physician: Cayden GALLO MD Comment: Discharge Diagnosis: AARON LEWIS has been given the following list of follow-up instructions, prescriptions, and patient education materials: IF UNABLE TO CONTACT YOUR PHYSICIAN AND YOU FEEL IT IS AN EMERGENCY, GO TO THE NEAREST EMERGENCY ROOM OR CALL 911 Follow up: With: Address: When: BRENDA MARIN [address] [place] [phone] [facility] (1) Comments: Call for followup appointment with [...] you have a fever over 100 degrees TAHIRA Zhang CYNTHIA J, have received the attached patient education materials/instructions and have verbalized understanding: May we do a follow up call? Yes No I was present when discharge instructions were given Patient Signature _ Date Clinican/Nurse Signature Date You may receive a survey from Conner Willett asking you to rate your care experience. Your feedback is important and will help us understand what we do well and how we can improve the quality of care we provide to you, your loved ones and our community. It?s an honor to serve you. Thank you for choosing [facility] Normal [facility] C Urineon 07-11-2023 Bacteria identified [...] coli 10,000 cfu/ml Proteus mirabilis SUSCEPTIBILITY RESULTS _ LEGEND: S=Susceptible, N/R=Not Reported, Blank=Data not available, or drug not advisable or tested, I=Intermediate, ESBL=Extended spectrum beta-lactamase, R=Resistant, TFG=Thymidine-dependent strain, ZAHIRA=Beta-lactamase positive, DARIUS=mcg/m;(mg/L), S*=Predicted susceptible interp, [...] at: [facility], [address] [place] [address], [id number]- , , [facility] Comment on above: Performed By: #### 2 [id number] ####[facility] [address] [place] [address] Ambulatory Visit Summaryon 0 07-09-2023 Ambulatory Visit Summary KYLE LEWISRichy Ruby :1945 Visit Date:07/09/2023 Ambulatory Visit Instructions Your Diagnosis Chronic cystitis Your Care Team Attending Physician - BRENDA MARIN PA-C Primary Care Physician - JEREMIAH REED MD This Is Your Medications List Misc Prescription (BACLOFEN 10 MG TABLET) acetaminophen-oxycodone (acetaminophen-oxycodone 325 mg-2.5 mg oral tablet) [...] Follow-Up Appointments Sunday 9:00 AM EST Where: [facility] Sunday 2:30 PM EDT Where: [facility] Medications What How Much When Instructions Unchanged acetaminophen-oxycodone (acetaminophen-oxycodone 325 mg-2.5 mg oral tablet) [...] for choosing us for your care. Normal [facility] C Urineon 06-07-2023 Bacteria identified Cx Nom (U) Microbiology PROCEDURE: Urine Culture [R1] SOURCE: U CleanCatch BODY SITE: COLLECTED DATE/TIME: 06/05/2023 13:47 EST RECEIVED DATE/TIME: 06/05/2023 17:49 EST START DATE/TIME: 06/05/2023 17:49 EST FREE TEXT SOURCE: MIAHBRENDA DAMICO PA-C, PA-C, BRENDA Poole FINAL REPORTS Final Report [] Verified Date/Time: 06/07/2023 08:50 EST >100,000 cfu/ml Escherichia coli SUSCEPTIBILITY RESULTS _ LEGEND: S=Susceptible, N/R=Not Reported, Blank=Data not available, or drug not advisable or tested, I=Intermediate, ESBL=Extended spectrum beta-lactamase, R=Resistant, TFG=Thymidine-dependent strain, ZAHIRA=Beta-lactamase positive, DARIUS=mcg/m;(mg/L), S*=Predicted susceptible interp, [...] Locations R1: This test was performed at: [facility], [address] [place] [address], [address] , [place], Normal [facility] Comment on above: Performed By: #### 2 [id number] ####[facility] [address] [place] [address] Screenson 06-06-2023 Screens [id number]#[id number] Normal [facility] Ambulatory Visit Summaryon 0 06-05-2023 Ambulatory Visit Summary AARON LEWIS :1945 Visit Date:06/05/2023 Ambulatory Visit Instructions Your Diagnosis OAB (overactive bladder) Urethral stricture Recurrent UTI Your Care Team Attending Physician - BRENDA MARIN PA-C Primary Care Physician - JEREMIAH REED MD This Is Your Medications List Contact prescribing physician if questions or concerns Misc Prescription (BACLOFEN 10 MG TABLET) acetaminophen-oxycodone (acetaminophen-oxycodone 325 mg-2.5 mg oral tablet) [...] with CEZAR BERNAL, CASSIE Seay When: [facility] [address] [place] [address]- Medications What How Much When Instructions Unchanged acetaminophen-oxycodone (acetaminophen-oxycodone 325 mg-2.5 mg oral tablet) [...] The main (more content not included)... Normal [facility] Patient Educationon 06-05-19 Patient Education Urology [...] Follow these instructions at home: ? Take dxba-ruf-csrbrrw and prescription medicines only as told by [...] provider. Document Revised: 03/07/2022 Document Reviewed: 03/07/2022 [employer] Patient Education ? 2022 [employer] [facility] Urology Office/Clinic Noteon 06-05-2023 Urology Office/Clinic Note Chief Complaint 1yr HPI Staff Former DLS pt DX: OAB & Urethral Stricture *Vesicare 10 mg QHS Does not think Vesicare is working. Getting up 3-4x/night, every night. Denies current pain/burning and visible blood in urine. States she has had 2 UTI's since April. Was hospitalized back in March @ [facility] due to falling. (No C&S at [facility]) Also at [place]. C&S 03/24/23 *>100k E Coli & 50-60k [...] done 06/16/[address] Moreno. Reports worsening frequency/urgency/nocturia despite no changes in intake. Reports increased [...] available) Was hospitalized back in March @ [facility] due to falling. (No C&S at [facility]) Also at [place]. UA today shows trace-intact blood, positive nitrates and large leuks. -Culture to be sent today -Pt to be called w/ results & tx'd at that time, no empiric abx sent today. Persistent UTI could certainly be contributing to her sx. Ordered: Urine Culture 3. OAB (overactive bladder) (N32.81: Overactive bladder) BBS 14, although pt states she does not leak. Bothered by frequency/urgency/nocturia . Has failed Ditropan and Tolterodine. Pt stated [...] evening fluids and reducing bladder irritants. Ordered: [id number] Measure Post Void residual urine and/or bladder [...] Urnls Dip Stick Auto w/o Microscopy POC 70899 Follow-up With When Contact Information CEZAR BERNAL, Cayden Hollins, URL [address] [address]- Additional Instructions: Schedule cysto/UD Patient Education Urethral [...] 2 tab (more content not included)... Normal [facility] Comment on above: Result Comment: Elec tronically Signed By: BRENDA MARIN PA-C\.br\Date and Time Signed: 06/05/23 17:59 EST\.br\Electronically Co-Signed By: Dori Mantilla\Date and Time Co-Signed: 06/05/23 13:35 EST Insurance Correspondence Off iceon 04-19-2023 Insurance Correspondence Office [id number] Normal [facility] CHEMISTRYOrdered By: SYSTEM SYSTEM on 04-13-2023 Anion gap [Moles/Vol] 14 mmol/L Normal 6 - 16 mEq/L [facility] Calcium [Mass/Vol] 9.1 mg/dL Normal 8.9 - 11. 1 mg/dL [facility] Chloride [Moles/Vol] 114 mmol/L High 101 - 1 11 mmol/L [facility] Cholesterol [Mass/Vol] 164 mg/dL Normal 120 - 200 mg/dL [facility] Cholesterol in HDL [Mass/Vol] 62 mg/dL Invalid Interpretation Code [facility] Comment on above: Interpretive Data: H DL > or equal to 60 mg/dL: Low cardiovascular risk HDL < 40 mg/dL : High cardiovascular risk Cholesterol in LDL [Mass/Vol] 73 mg/dL Normal <=129mg/dL [facility] Cholesterol in VLDL [Mass/Vol] 21 mg/dL Normal 7 - 40 mg/dL [facility] Remisol CO2 [Moles/Vol] 20 mmol/L Low 21 - 31 mmol/L [facility] Creatinine [Mass/Vol] 1.2 mg/dL Normal 0.5 - 1.3 mg/dL [facility] Remisol GFR/1.73 sq M.predicted among non-blacks MDRD (S/P/Bld) [Vol rate/Area] 47 mL/min/1.73 m2 Low >=59mL/min /1.73 m2 [facility] Chem S Comment on [...] Remisol Triglyceride [Mass/Vol] 106 mg/dL Normal <=149mg/dL [facility] Remisol Urea nitrogen [Mass/Vol] 29 mg/dL High 5 - 21 mg/dL [facility] Remisol Urea nitrogen/Creatinine [Mass ratio] 24 mg/mg High 10 - 20 [facility] Remisol CHEMISTRYOrdered By: SYSTEM SYSTEM on 04-12-2023 Amphetamines [...] activity/Vol] 78 [iU]/d Normal 21 - 98 Int._Unit/ L [facility] Remisol ALT No additional P-5'-P [Catalytic activity/Vol] 22 [iU]/d Normal 6 - 46 Int._Unit/ L [facility] Remisol Anion gap [Moles/Vol] 16 mmol/L Normal 6 - 16 mEq/L [facility] Remisol AST [Catalytic activity/Vol] 25 [iU]/d Normal 5 - 43 Int._Unit/ L [facility] Remisol Bilirubin [Mass/Vol] 0.7 mg/dL Normal [...] (S/P/Bld) [Vol rate/Area] 29 mL/min/1.73 m2 Low >=59mL/min /1.73 m2 [facility] Chem S Comment on [...] Sensitivity Troponin I Instructions For Use, [place], December 2017) TSH Qn 0.52 m[IU]/L Normal 0.34 - 5.60 mcIU/mL [facility] Remisol Urea nitrogen [Mass/Vol] 39 mg/dL High 5 - 21 mg/dL [facility] Remisol Urea nitrogen/Creatinine [Mass ratio] 22 mg/mg High 10 - 20 [facility] Remisol CHEMISTRYOrdered By: Shauna kendall on 04-12-2023 HbA1c (Bld) [Mass fraction] 5.9 % Normal <=5.9% [facility] ChemAutoSS CHEMISTRYOrdered By: Lab ROP User on 04-12-2023 Glucose [Mass/Vol] 88 mg/dL Normal 55 - 99 mg/dL [facility] POC Subsection Comment on above: Result Comment: Jose matos RN/ POC Username SETH [place]ALLS Invalid Interpretation Code [facility] POC Subsection Sodium [Moles/Vol] [id number] mmol/L Invalid Interpretation Code [facility] POC Subsection Sodium [Moles/Vol] [id number] mmol/L Invalid Interpretation Code [facility] POC Subsection COAGULATIONOrdered By: Myra Grayson on 04-12-2023 aPTT Coag (PPP) [Time] 29.5 s Normal 25.1 - 36.5 second(s) [facility] Auto Coag Comment on [...] the same coagulation reagent and instrumentation as [facility]. Currently there are no coagulation studies available worldwide for children to 14 days, and no normal ranges. Heparin therapeutic range (represented by Anti-Factor Xa activity of 0.2 - 0.4 U/mL) corresponds to PTT of 56.6 - 109.0 sec. INR Coag (PPP) [Relative time] 0.9 {INR} Invalid Interpretation Code [facility] Auto Coag Comment on above: Interpretive Data: I NR results are specifically intended to assess patients stabilized on long-term Anticoagulation therapy suggested INR s Less Intensive Anticoagulation 2.0 3.0 Conventional Range 3.0 4.5 PT Coag (PPP) [Time] 10.4 s Normal 9.4 - 1 2.5 second(s) [facility] Auto Coag Comment on [...] the same coagulation reagent and instrumentation as [facility]. Currently there are no coagulation studies available worldwide for children to 14 days, and no normal ranges. HEMATOLOGYOrdered By: SYSTEM SYSTEM on 04-12-2023 Basophils/100 [...] (Bld) [#/Vol] 285.0 E9/L Normal 150.0 - 500.0 E9/L [facility] HemeAutoSS RBC (Bld) [#/Vol] 4.9 E12/L Normal 4.3 - 5.9 E12/L [facility] HemeAutoSS WBC corrected for nucl RBC Auto (Bld) [#/Vol] 15.1 E9/L High 4.0 - 11.0 E9/L [facility] HemeAutoSS URINALYSISOrdered By: Bonny Workman on 04-12-2023 Bacteria [...] Interpretation Code Negative [facility] UA Auto SS Ida.plasma/Ida .RBC (Bld) [Mass ratio] 0-3 /HPF Normal 0-3/HPF [...] PM) Invalid Interpretation Code 1.005 - 1.030 [facility] Auto SS UA Spec Desc Catheter (04/12/23 2:32 PM) Normal [facility] Auto SS Urobilinogen Qn (U) 0.1644009 {Nevaeh'U}/dL Normal 0.0 - 1.0 EU/dL [facility] UA Auto SS WBC Auto Ql (U) Negative (04/12/23 2:32 PM) Normal Negative [facility] UA Auto SS WBC casts LM.LPF (Urine sed) [#/Area] 0-3 (04/12/23 2:32 PM) Normal [facility] UA Auto SS WBC LM.HPF (Urine sed) [#/Area] 0-5 /HPF Normal 0-5/HPF [facility] UA Auto SS XR CSPINE OBL FLEX_EXTon XR CSPINE OBL [...] Date: 2022-09-02 00:37 Normal [facility] MRI SHOULDER RT WO CONon [...] EHSAN MILLER Date: 2022-08-22 09:25 Normal [facility] XR SHOULDER RT 2V or [...] BRENT MALDONADO Date: 2022-08-10 22:45 Normal [facility] CT CHEST WO CONon 06-12-2022 [...] Date: 2022-06-12 16:56 Normal [facility] VIT D 1 25 DIHYDROXYon 04-24 Calcitriol(1,25 di-OH Vit D) 91.0 pg/mL Critically high 24.8-81.5 [facility] Comment on above: Performed By: #### V [id number] #### [facility] [address] [place] [address] Dr. Helio Cee CULTURE URINEon 04-23-2022 CULTURE [...] <=0.12 S F Nitrofurantoin <=16 S F Trimethoprim/Sulfamethoxaz ole <=20 S F Normal [facility] Comment on above: Performed By: #### U RCX #### [facility] [address] [place] [address] Dr. Helio Cee CBC AUTO DIFFon 04-21-2022 BASO # 0.0 103/ul Normal 0.0-0.1 [facility] Comment on above: Performed By: #### E RUR #### [facility] [address] [place] [address] Dr. Helio Cee Basophils/100 WBC (Bld) 0.4 % Normal 0.2-2.0 [facility] Comment on above: Performed By: #### E RUR #### [facility] [address] [place] [address] Dr. Helio Cee EO # 0.4 103/ul Normal 0.0-0.7 [facility] Comment on above: Performed By: #### E RUR #### [facility] [address] [place] [address] Dr. Helio Cee Eosinophils/100 WBC (Bld) 4.0 % Normal 0.9-7.0 [facility] Comment on above: Performed By: #### E RUR #### [facility] [address] [place] [address] Dr. Helio Cee Erythrocyte distribution width (RBC) [Ratio] 15.2 % Critically high 11.0-15.0 [facility] Comment on above: Performed By: #### E RUR #### [facility] [address] [place] [address] Dr. Helio Cee Hematocrit (Bld) [Volume fraction] 41.0 % Normal 36.0-48.0 [facility] Comment on above: Performed By: #### E RUR #### [facility] [address] [place] [address] Dr. Helio Cee Hemoglobin (Bld) [Mass/Vol] 12.9 g/dL Normal 12.0-16.0 [facility] Comment on above: Performed By: #### E RUR #### [facility] [address] [place] [address] Dr. Helio Cee IG # 0.04 10e3/ul Critically high 0.00-0.03 [facility] Comment on above: Performed By: #### E RUR #### [facility] [address] [place] [address] Dr. Helio Cee IG % 0.4 % Normal 0.0-0.5 [facility] Comment on above: Performed By: #### E RUR #### [facility] [address] [place] [address] Dr. Helio Cee LYMPH # 1.1 103/ul Critically low 1.2-3.8 [facility] Comment on above: Performed By: #### E RUR #### [facility] [address] [place] [address] Dr. Helio Cee Lymphocytes/100 WBC (Bld) 11.9 % Critically low 20.5-60.0 [facility] Comment on above: Performed By: #### E RUR #### [facility] [address] [place] [address] Dr. Helio Cee MANUAL DIFF REQ NO Normal [facility] Comment on above: Performed By: #### E RUR #### [facility] [address] [place] [address] Dr. Helio Cee MCH (RBC) [Entitic mass] 29.0 pg Normal 26.7-34.0 [facility] Comment on above: Performed By: #### E RUR #### [facility] Laboratory [address] [place] [address] Dr. Helio Cee MCHC (RBC) [Mass/Vol] 31.5 g/dL Normal 29.9-35.2 [facility] Comment on above: Performed By: #### E RUR #### [facility] Laboratory [address] [place] [address] Dr. Helio Cee MCV (RBC) [Entitic vol] 92.1 fL Normal 81.0-99.0 [facility] Comment on above: Performed By: #### E RUR #### [facility] Laboratory [address] [place] [address] Dr. Helio Cee MONO # 0.4 103/ul Normal 0.3-0.8 [facility] Comment on above: Performed By: #### E RUR #### [facility] Laboratory [address] [place] [address] Dr. Helio Cee Monocytes/100 WBC (Bld) 4.4 % Normal 1.7-12.0 [facility] Comment on above: Performed By: #### E RUR #### [facility] Laboratory [address] [place] [address] Dr. Helio Cee NEUT # 7.3 103/ul Critically high 1.4-6.5 [facility] Comment on above: Performed By: #### E RUR #### [facility] Laboratory [address] [place] [address] Dr. Helio Cee Neutrophils/100 WBC (Bld) 78.9 % Critically high 43.0-75.0 [facility] Comment on above: Performed By: #### E RUR #### [facility] Laboratory [address] [place] [address] Dr. Helio Cee Platelet mean volume (Bld) [Entitic vol] 10.6 fL Normal 9.5-13.5 [facility] Comment on above: Performed By: #### E RUR #### [facility] Laboratory [address] [place] [address] Dr. Helio Cee PLT 269 103/ul Normal 150-450 [facility] Comment on above: Performed By: #### E RUR #### [facility] Laboratory [address] [place] [address] Dr. Helio Cee RBC 4.45 106/ul Normal 4.20-5.40 [facility] Comment on above: Performed By: #### E RUR #### [facility] Laboratory [address] [place], [place] [address] Dr. Helio Cee WBC 9.2 103/ul Normal 4.0-11.0 [facility] Comment on above: Performed By: #### E RUR #### [facility] Laboratory [address] [place] [address] [address] Helio Cee LIPID PROFILEon 04-21-2022 CHOL-HDL RATIO NORM SEE BELOW Normal [facility] Comment on above: Result Comment: 3.3 - 4.4 LOW RISK 4.4 - 7.1 AVERAGE RISK 7.1 - 11.0 MODERATE RISK >11.0 HIGH RISK Performed By: #### T SH, LIPID, CMP ####[facility] [address] [place] [id number]. Helio Cee Cholesterol [Mass/Vol] 146 mg/dL Normal <=200 [facility] Comment on above: Performed By: #### T CAITLIN, LIPID, CMP ####[facility] [address] [place] [id number]. Helio Cee Cholesterol in HDL [Mass/Vol] 63 mg/dL Critically high 40-60 [facility] Comment on above: Performed By: #### T CAITLIN, LIPID, CMP ####[facility] [address] [place] [id number]. Helio Cee Cholesterol in LDL [Mass/Vol] 66.6 mg/dL Normal [facility] Comment on above: Performed By: #### T SH, LIPID, CMP ####[facility] [address] [place] [id number]. Helio Cee Cholesterol.total/Chol esterol in HDL [Mass ratio] 2.3 {ratio} Normal [facility] Comment on above: Performed By: #### T SH, LIPID, CMP ####[facility] [address] [place] [id number]. Helio Cee HDL NORMAL > or = 60 mg/dl - LO W CARDIOVASCULAR RISK <40 mg/dl - HIGH CARDIOVASCULAR RISK Normal [facility] Comment on above: Performed By: #### T CAITLIN, LIPID, CMP ####[facility] [address] [place] [address]Dr. Helio Cee LDL CALC NORMAL SEE BELOW Normal [facility] Comment on above: Result Comment: <100 mg/dl OPTIMAL 100 - 129 mg/dl NEAR OR ABOVE OPTIMAL 130 - 159 mg/dl BORDERLINE HIGH 160 - 189 mg/dl HIGH >190 mg/dl VERY HIGH Performed By: #### T CAITLIN, LIPID, CMP ####[facility] [address] [place] [address]Dr. Helio Cee Triglyceride [Mass/Vol] 82 mg/dL Normal <=150 [facility] Comment on above: Performed By: #### T CAITLIN, LIPID, CMP ####[facility] [address] [place] [address]Dr. Helio Cee VLDL CALC 16.4 mg/dL Normal [facility] Comment on above: Performed By: #### T CAITLIN, LIPID, CMP ####[facility] [address] [place] [address]Dr. Helio Cee PROF 14(COMP METB)on 022 Albumin [Mass/Vol] 3.5 g/dL Normal 3.4-5.0 [facility] Comment on above: Performed By: #### T CAITLIN, LIPID, CMP ####[facility] [address] [place] [address]Dr. Helio Cee Albumin/Globulin [Mass ratio] 1.0 {ratio} Normal [facility] Comment on above: Performed By: #### T CAITLIN, LIPID, CMP ####[facility] [address] [place] [address]Dr. Helio Cee ALP [Catalytic activity/Vol] 98 U/L Normal 46-116 [facility] Comment on above: Performed By: #### T CAITLIN, LIPID, CMP ####[facility] [address] [place] [address]Dr. Helio Cee ALT [Catalytic activity/Vol] 23 U/L Normal 14-59 [facility] Comment on above: Performed By: #### T CAITLIN, LIPID, CMP ####[facility] [address] [place] [id number]. Helio Cee Anion gap [Moles/Vol] 12.2 mmol/L Normal [facility] Comment on above: Performed By: #### T SH, LIPID, CMP ####[facility] [address] [place] [id number]. Helio Cee AST [Catalytic activity/Vol] 15 U/L Normal 15-37 [facility] Comment on above: Performed By: #### T SH, LIPID, CMP ####[facility] [address] [place] [address]Dr. Helio Cee Bilirubin [Mass/Vol] 0.5 mg/dL Normal 0.2-1.0 [facility] Comment on above: Performed By: #### T SH, LIPID, CMP ####[facility] [address] [place] [address]Dr. Helio Cee Calcium [Mass/Vol] 9.0 mg/dL Normal 8.5-10.1 [facility] Comment on above: Performed By: #### T SH, LIPID, CMP ####[facility] [address] [place] [address]Dr. Helio Cee Chloride [Moles/Vol] 109 mmol/L Critically high 98-107 [facility] Comment on above: Performed By: #### T SH, LIPID, CMP ####[facility] [address] [place] [address]Dr. Helio Cee CO2 [Moles/Vol] 26.5 mmol/L Normal 21.0-32.0 [facility] Comment on above: Performed By: #### T SH, LIPID, CMP ####[facility] [address] [place] [address]Dr. Helio Cee Creatinine [Mass/Vol] 1.22 mg/dL Critically high 0.55-1.02 [facility] Comment on above: Performed By: #### T SH, LIPID, CMP ####[facility] [address] [place] [address]Dr. Helio Cee EGFR-AF NEW ZEALANDER 52 mL/min/1.73m2 Critically low >=60 [facility] Comment on above: Performed By: #### T SH, LIPID, CMP ####[facility] [address] [place] [address]Dr. Helio Cee EGFR-NON AF NEW ZEALANDER 43 mL/min/1.73m2 Critically low >=60 [facility] Comment on above: Performed By: #### T SH, LIPID, CMP ####[facility] [address] [place], [place] [address]Dr. Helio Cee Globulin (S) [Mass/Vol] 3.4 g/dL Normal [facility] Comment on above: Performed By: #### T CAITLIN, LIPID, CMP ####[facility] [address] [place], [place] [address]Dr. Helio Cee Glucose [Mass/Vol] 103 mg/dL Normal 74-106 [facility] Comment on above: Performed By: #### T CAITLIN, LIPID, CMP ####[facility] Q[address]izes[address] [place], [place] [address]Dr. Helio Cee Potassium [Moles/Vol] 4.7 mmol/L Normal 3.5-5.1 [facility] Comment on above: Performed By: #### T CAITLIN, LIPID, CMP ####[facility] [address] [place], [place] [address]Dr. Helio Cee Protein [Mass/Vol] 6.9 g/dL Normal 6.4-8.2 [facility] Comment on above: Performed By: #### T CAITLIN, LIPID, CMP ####[facility] [address] [place], [place] [address]Dr. Helio Cee Sodium [Moles/Vol] 143 mmol/L Normal 136-145 [facility] Comment on above: Performed By: #### T SH, LIPID, CMP ####[facility] [address] [place], [place] [address]Dr. Helio Cee Urea nitrogen [Mass/Vol] 22.0 mg/dL Critically high 7.0-18.0 [facility] Comment on above: Performed By: #### T CAITLIN, LIPID, CMP ####[facility] [address] [place] [address]Dr. Helio Cee Urea nitrogen/Creatinine [Mass ratio] 18.0 mg/mg Normal [facility] Comment on above: Performed By: #### T SH, LIPID, CMP ####[facility] [address] [place] [address]Dr. Helio Cee TSHon 04-21-2022 TSH 0.592 uIU/mL Normal 0.358-3.74 0 [facility] Comment on above: Performed By: #### T SH, LIPID, CMP ####[facility] [address] [place] [address]Dr. Helio Cee UA RANDOM W/MICROSCOPICon BACTERIA NONE SEEN Normal NONE SEEN [facility] Comment on above: Performed By: #### U AMIC ####[facility] [address] [place], [place] [address]Dr. Helio Cee Bilirubin Ql (U) Negative Normal NEGATIVE [facility] Comment on above: Performed By: #### U AMIC ####[facility] [address] [place], [place] [address]Dr. Helio Cee CAST NONE SEEN Normal NONE SEEN [facility] Comment on above: Performed By: #### U AMIC ####[facility] [address] [place], [place] [address]Dr. Helio Cee Clarity (U) CLEAR Normal CLEAR [facility] Comment on above: Performed By: #### U AMIC ####[facility] [address] [place], [place] [address]Dr. Helio Cee Color (U) DK. YELLOW Normal YELLOW [facility] Comment on above: Performed By: #### U AMIC ####[facility] [address] [place], [place] [address]Dr. Helio Cee Crystals LM Nom (Urine sed) NONE SEEN Normal NONE SEEN [facility] Comment on above: Performed By: #### U AMIC ####[facility] [address] [place], [place] [address]Dr. Helio Cee Epithelial cells LM Ql (Urine sed) RARE Normal NONE SEEN /RARE [facility] Comment on above: Performed By: #### U AMIC ####[facility] [address] [place] [address]Dr. Helio Cee Glucose Ql (U) Negative Normal NEGATIVE [facility] Comment on above: Performed By: #### U AMIC ####[facility] [address] [place] [address]Dr. Helio Cee Hemoglobin Ql (U) Negative Normal NEGATIVE [facility] Comment on above: Performed By: #### U AMIC ####[facility] [address] [place] [address]Dr. Claudettemagan Cee Ketones Ql (U) Negative Normal NEGATIVE [facility] Comment on above: Performed By: #### U AMIC ####[facility] [address] [place], [place] [address]Dr. Helio Cee LEUKOCYTES Negative Normal NEGATIVE [facility] Comment on above: Performed By: #### U AMIC ####[facility] [address] [place], [place] [address]Dr. Helio Cee MUCOUS TRACE Abnormal NONE SEEN [facility] Comment on above: Performed By: #### U AMIC ####[facility] [address] [place], [place] [address]Dr. Helio Cee Nitrite Ql (U) Negative Normal NEGATIVE [facility] Comment on above: Performed By: #### U AMIC ####[facility] [address] [place], [place] [address]Dr. Helio Cee pH (U) 5.5 [pH] Normal 5-9 [facility] Comment on above: Performed By: #### U AMIC ####[facility] [address] [place], [place] [address]Dr. Helio Cee RBC 0-2 Normal 0-2 [facility] Comment on above: Performed By: #### U AMIC ####[facility] [address] [place] [address]Dr. Helio Cee SPEC GRAVITY >=1.030 Abnormal 1.005-<=1. 025 [facility] Comment on above: Performed By: #### U AMIC ####[facility] [address] [place], [place] [address]Ij. Helio Cee UA PROTEIN TRACE Normal NEGATIVE/ TRACE [facility] Comment on above: Performed By: #### U AMIC ####[facility] [address] [place], [place] [address]Az. Helio Cee Urobilinogen Qn (U) 1.0 {Nevaeh'U}/dL Normal 0.2 - 1. 0 [facility] Comment on above: Performed By: #### U AMIC ####[facility] [address] [place], [place] [address]Qo. Claudettemagan Coleman WBC NONE SEEN Normal NONE SEEN [facility] Comment on above: Performed By: #### U AMIC ####[facility] [address] [place], [place] [address]Zp. [address] CT CHEST WO CONon 02-22-2022 [...] Date: 2022-02-22 16:51 Normal [facility] HEMOGLOBINon 02-22-2022 Hemoglobin (Bld) [Mass/Vol] 13.6 g/dL Normal 12.0-16.0 [facility] Comment on above: Performed By: #### V [id number] #### [facility] Laboratory [address] [place] [address] Dr. Helio Cee XR TIB_FIB RT 2Von [...] Date: 2022-01-07 21:52 Normal [facility] BNPon 11-22-2021 Natriuretic peptide B (Bld) [Mass/Vol] 1469.0 pg/mL Critically high <=900.0 [facility] Comment on above: Performed By: #### C VDTBH #### [facility] Laboratory [address] [place] [address] Dr. Helio Cee CBC AUTO DIFFon 11-22-2021 BASO # 0.1 103/ul Normal 0.0-0.1 [facility] Comment on above: Performed By: #### E RUR #### [facility] Laboratory [address] [place] [address] Dr. Helio Cee Basophils/100 WBC (Bld) 0.7 % Normal 0.2-2.0 [facility] Comment on above: Performed By: #### E RUR #### [facility] Laboratory [address] [place] [address] Dr. Helio Cee EO # 0.2 103/ul Normal 0.0-0.7 [facility] Comment on above: Performed By: #### E RUR #### [facility] Laboratory [address] [place] [address] Dr. Helio Cee Eosinophils/100 WBC (Bld) 1.9 % Normal 0.9-7.0 [facility] Comment on above: Performed By: #### E RUR #### [facility] Laboratory [address] [place] [address] [address] Helio Cee Erythrocyte distribution width (RBC) [Ratio] 14.3 % Normal 11.0-15.0 [facility] Comment on above: Performed By: #### E RUR #### [facility] Laboratory [address] [place] [address] Dr. Helio Cee Hematocrit (Bld) [Volume fraction] 37.9 % Normal 36.0-48.0 [facility] Comment on above: Performed By: #### E RUR #### [facility] Laboratory [address] [place] [address] Dr. Helio Cee Hemoglobin (Bld) [Mass/Vol] 12.0 g/dL Normal 12.0-16.0 [facility] Comment on above: Performed By: #### E RUR #### [facility] Laboratory [address] [place] [address] Dr. Helio Cee IG # 0.10 10e3/ul Critically high 0.00-0.03 [facility] Comment on above: Performed By: #### E RUR #### [facility] Laboratory [address] [place] [address] Dr. Helio Cee IG % 1.1 % Critically high 0.0-0.5 [facility] Comment on above: Performed By: #### E RUR #### [facility] Laboratory [address] [place] [address] Dr. Helio Cee LYMPH # 0.9 103/ul Critically low 1.2-3.8 [facility] Comment on above: Performed By: #### E RUR #### [facility] Laboratory [address] [place] [address] Dr. Helio Cee Lymphocytes/100 WBC (Bld) 10.1 % Critically low 20.5-60.0 [facility] Comment on above: Performed By: #### E RUR #### [facility] Laboratory [address] [place] [address] Dr. Helio Cee MANUAL DIFF REQ NO Normal [facility] Comment on above: Performed By: #### E RUR #### [facility] Laboratory [address] [place] [address] Dr. Helio Cee MCH (RBC) [Entitic mass] 29.8 pg Normal 26.7-34.0 [facility] Comment on above: Performed By: #### E RUR #### [facility] Laboratory [address] [place] [address] Dr. Helio Cee MCHC (RBC) [Mass/Vol] 31.7 g/dL Normal 29.9-35.2 [facility] Comment on above: Performed By: #### E RUR #### [facility] Laboratory [address] [place] [address] Dr. Helio Cee MCV (RBC) [Entitic vol] 94.0 fL Normal 81.0-99.0 [facility] Comment on above: Performed By: #### E RUR #### [facility] Laboratory [address] [place] [address] Dr. Helio Cee MONO # 0.7 103/ul Normal 0.3-0.8 [facility] Comment on above: Performed By: #### E RUR #### [facility] Laboratory [address] [place] [address] Dr. Helio Cee Monocytes/100 WBC (Bld) 7.8 % Normal 1.7-12.0 [facility] Comment on above: Performed By: #### E RUR #### [facility] Laboratory [address] [place] [address] Dr. Helio Cee NEUT # 7.2 103/ul Critically high 1.4-6.5 [facility] Comment on above: Performed By: #### E RUR #### [facility] Laboratory [address] [place] [address] Dr. Helio Cee Neutrophils/100 WBC (Bld) 78.4 % Critically high 43.0-75.0 [facility] Comment on above: Performed By: #### E RUR #### [facility] Laboratory [address] [place] [address] Dr. Helio Cee Platelet mean volume (Bld) [Entitic vol] 10.6 fL Normal 9.5-13.5 [facility] Comment on above: Performed By: #### E RUR #### [facility] Laboratory [address] [place] [address] [address] Helio Cee PLT 278 103/ul Normal 150-450 [facility] Comment on above: Performed By: #### E RUR #### [facility] Laboratory [address] [place] [address] [address] Helio Cee RBC 4.03 106/ul Critically low 4.20-5.40 [facility] Comment on above: Performed By: #### E RUR #### [facility] Laboratory [address] [place] [address] [address] Helio Cee WBC 9.1 103/ul Normal 4.0-11.0 [facility] Comment on above: Performed By: #### E RUR #### [facility] Laboratory [address] [place] [address] [address] Helio Cee CTA CHEST WO W [...] by: Jay BARAHONA Date: 2021-11-22 16:47 Normal [facility] CULTURE BLOODon 11-22-2021 Microscopic examination of blood, culture Culture Observations: NO GROWTH AT 5 DAYS. Normal [facility] Comment on above: Performed By: #### B [id number] ####[facility] [address] [place], [place] [address]LxDr. Helio Cee Microscopic examination of blood, culture Culture Observations: NO GROWTH AT 5 DAYS. Normal [facility] Comment on above: Performed By: #### B [id number] #### [facility] Laboratory [address] [place], [place] [address] Dr. Helio Cee [facility]11 SARS-CoV-2 (COVID-19) RNA KIMMY+probe Ql (Unsp spec) Not detected Normal NOT DETECTED [facility] Comment on above: Result Comment: [...] for this test is supported by the Environmental Conservation Officer of Health and Human Service's declaration that [...] By: #### C VDTBH #### [facility] Laboratory [address] [place] [address] [address] Helio Cee LACTATE/LACTIC ACIDon 2021 Lactate [Moles/Vol] mmol/L Critically low 0.4-1.9 [facility] Comment on above: Performed By: #### L ACT ####[facility] [address] [place] [address]Dr. Helio Cee PROF 14(COMP METB)on 022 Albumin [Mass/Vol] 3.1 g/dL Critically low 3.4-5.0 [facility] Comment on above: Performed By: #### V [id number] #### [facility] Laboratory [address] [place] [address] Dr. Helio Cee Albumin/Globulin [Mass ratio] 0.8 {ratio} Normal [facility] Comment on above: Performed By: #### V [id number] #### [facility] Laboratory [address] [place] [address] Dr. Helio Cee ALP [Catalytic activity/Vol] 92 U/L Normal 46-116 [facility] Comment on above: Performed By: #### V [id number] #### [facility] Laboratory [address] [place] [address] Dr. Helio Cee ALT [Catalytic activity/Vol] 23 U/L Normal 14-59 [facility] Comment on above: Performed By: #### V [id number] #### [facility] Laboratory [address] [place] [address] Dr. Helio Cee Anion gap [Moles/Vol] 12.8 mmol/L Normal [facility] Comment on above: Performed By: #### V [id number] #### [facility] Laboratory [address] [place] [address] Dr. Helio Cee AST [Catalytic activity/Vol] 16 U/L Normal 15-37 [facility] Comment on above: Performed By: #### V [id number] #### [facility] Laboratory [address] [place] [address] Dr. Helio Cee Bilirubin [Mass/Vol] 0.6 mg/dL Normal 0.2-1.0 [facility] Comment on above: Performed By: #### V [id number] #### [facility] Laboratory [address] [place] [address] Dr. Helio Cee Calcium [Mass/Vol] 9.5 mg/dL Normal 8.5-10.1 [facility] Comment on above: Performed By: #### V [id number] #### [facility] Laboratory [address] [place] [address] Dr. Helio Cee Chloride [Moles/Vol] 106 mmol/L Normal 98-107 [facility] Comment on above: Performed By: #### V [id number] #### [facility] Laboratory [address] [place] [address] Dr. Helio Cee CO2 [Moles/Vol] 25.1 mmol/L Normal 21.0-32.0 [facility] Comment on above: Performed By: #### V [id number] #### [facility] [address] [place] [address] Dr. Helio Cee Creatinine [Mass/Vol] 1.06 mg/dL Critically high 0.55-1.02 [facility] Comment on above: Performed By: #### V [id number] #### [facility] [address] [place] [address] Dr. Helio Cee EGFR-AF NEW ZEALANDER >60 Normal >=60 [facility] Comment on above: Performed By: #### V [id number] #### [facility] [address] [place] [address] Dr. Helio Cee EGFR-NON AF NEW ZEALANDER 51 mL/min/1.73m2 Critically low >=60 [facility] Comment on above: Performed By: #### V [id number] #### [facility] [address] [place] [address] Dr. Helio Cee Globulin (S) [Mass/Vol] 4.1 g/dL Normal [facility] Comment on above: Performed By: #### V [id number] #### [facility] [address] [address] [address] Helio Cee Glucose [Mass/Vol] 99 mg/dL Normal 74-106 [facility] Comment on above: Performed By: #### V [id number] #### [facility] [address] [place] [address] Dr. Helio Cee Potassium [Moles/Vol] 3.9 mmol/L Normal 3.5-5.1 [facility] Comment on above: Performed By: #### V [id number] #### [facility] [address] [place] [address] Dr. Helio Cee Protein [Mass/Vol] 7.2 g/dL Normal 6.4-8.2 [facility] Comment on above: Performed By: #### V [id number] #### [facility] [address] [place] [address] Dr. Helio Cee Sodium [Moles/Vol] 140 mmol/L Normal 136-145 [facility] Comment on above: Performed By: #### V [id number] #### [facility] [address] [place] [address] Dr. Helio Cee Urea nitrogen [Mass/Vol] 15.0 mg/dL Normal 7.0-18.0 [facility] Comment on above: Performed By: #### V [id number] #### [facility] [address] [place] [address] Dr. Helio Cee Urea nitrogen/Creatinine [Mass ratio] 14.2 mg/mg Normal [facility] Comment on above: Performed By: #### V [id number] #### [facility] [address] [place] [address] Dr. Helio Cee TROPONIN, HIGH SENSITIVITYon 11-22-2021 HSTROP 11.6 pg/mL Normal 4.0-51.3 [facility] Comment on above: Result Comment: CUT- OFF POINTS HAVE BEEN ESTABLISHED BASED ON THE FOURTH UNIVERSAL DEFINITIONS OF MYOCARDIAL INFARCTION. THE UPPER REFERENCE LIMIT (URL) OF TROPONIN, DEFINED THE 99TH PERCENTILE OF cTnI DISTRIBUTION IN A REFERENCE POPULATION, HAS BEEN CONFIRMED THE DECISION THRESHOLD FOR [place] DIAGNOSIS. Performed By: #### V [id number] #### [facility] [address] [place] [address] Dr. Helio Cee XR CHEST 2 Von [...] Date: 2021-11-22 14:20 Normal [facility] BNPon 11-21-2021 Natriuretic peptide B (Bld) [Mass/Vol] 953.0 pg/mL Critically high <=900.0 [facility] Comment on above: Performed By: #### E RUR #### [facility] [address] [place] [address] Dr. Helio Cee CBC AUTO DIFFon 11-21-2021 BASO # 0.0 103/ul Normal 0.0-0.1 [facility] Comment on above: Performed By: #### E RUR #### [facility] [address] [place] [address] Dr. Helio Cee Basophils/100 WBC (Bld) 0.4 % Normal 0.2-2.0 [facility] Comment on above: Performed By: #### E RUR #### [facility] [address] [place] [address] Dr. Helio Cee EO # 0.1 103/ul Normal 0.0-0.7 [facility] Comment on above: Performed By: #### E RUR #### [facility] [address] [place] [address] Dr. Helio Cee Eosinophils/100 WBC (Bld) 1.1 % Normal 0.9-7.0 [facility] Comment on above: Performed By: #### E RUR #### [facility] [address] [address] [address] Helio Cee Erythrocyte distribution width (RBC) [Ratio] 14.6 % Normal 11.0-15.0 [facility] Comment on above: Performed By: #### E RUR #### [facility] [address] [place] [address] Dr. Helio Cee Hematocrit (Bld) [Volume fraction] 35.2 % Critically low 36.0-48.0 [facility] Comment on above: Performed By: #### E RUR #### [facility] [address] [place] [address] Dr. Helio Cee Hemoglobin (Bld) [Mass/Vol] 10.9 g/dL Critically low 12.0-16.0 [facility] Comment on above: Performed By: #### E RUR #### [facility] [address] [place] [address] Dr. Helio Cee IG # 0.07 10e3/ul Critically high 0.00-0.03 [facility] Comment on above: Performed By: #### E RUR #### [facility] [address] [place] [address] Dr. Helio Cee IG % 0.7 % Critically high 0.0-0.5 [facility] Comment on above: Performed By: #### E RUR #### [facility] [address] [place] [address] Dr. Helio Cee LYMPH # 1.4 103/ul Normal 1.2-3.8 [facility] Comment on above: Performed By: #### E RUR #### [facility] [address] [place] [address] Dr. Helio Cee Lymphocytes/100 WBC (Bld) 13.3 % Critically low 20.5-60.0 [facility] Comment on above: Performed By: #### E RUR #### [facility] [address] [place] [address] Dr. Helio Cee MANUAL DIFF REQ NO Normal [facility] Comment on above: Performed By: #### E RUR #### [facility] [address] [address] [address] Helio Cee MCH (RBC) [Entitic mass] 29.5 pg Normal 26.7-34.0 [facility] Comment on above: Performed By: #### E RUR #### [facility] [address] [address] [address] Helio Cee MCHC (RBC) [Mass/Vol] 31.0 g/dL Normal 29.9-35.2 [facility] Comment on above: Performed By: #### E RUR #### [facility] [address] [place] [address] Dr. Helio Cee MCV (RBC) [Entitic vol] 95.4 fL Normal 81.0-99.0 [facility] Comment on above: Performed By: #### E RUR #### [facility] [address] [place] [address] Dr. Helio Cee MONO # 0.8 103/ul Normal 0.3-0.8 [facility] Comment on above: Performed By: #### E RUR #### [facility] [address] [place] [address] Dr. Helio Cee Monocytes/100 WBC (Bld) 7.3 % Normal 1.7-12.0 [facility] Comment on above: Performed By: #### E RUR #### [facility] [address] [address] [address] Helio Cee NEUT # 7.9 103/ul Critically high 1.4-6.5 [facility] Comment on above: Performed By: #### E RUR #### [facility] [address] [place] [address] Dr. Helio Cee Neutrophils/100 WBC (Bld) 77.2 % Critically high 43.0-75.0 [facility] Comment on above: Performed By: #### E RUR #### [facility] [address] [place] [address] Dr. Helio Cee Platelet mean volume (Bld) [Entitic vol] 11.1 fL Normal 9.5-13.5 [facility] Comment on above: Performed By: #### E RUR #### [facility] [address] [place] [address] Dr. Helio Cee PLT 245 103/ul Normal 150-450 [facility] Comment on above: Performed By: #### E RUR #### [facility] [address] [address] [address] Helio Cee RBC 3.69 106/ul Critically low 4.20-5.40 [facility] Comment on above: Performed By: #### E RUR #### [facility] [address] [address] [address] Helio Cee WBC 10.2 103/ul Normal 4.0-11.0 [facility] Comment on above: Performed By: #### E RUR #### [facility] [address] [place] [address] Dr. Helio Cee PROF 14(COMP METB)on 022 Albumin [Mass/Vol] 2.6 g/dL Critically low 3.4-5.0 [facility] Comment on above: Performed By: #### V [id number] #### [facility] [address] [place] [address] Dr. Helio Cee Albumin/Globulin [Mass ratio] 0.7 {ratio} Normal [facility] Comment on above: Performed By: #### V [id number] #### [facility] [address] [place] [address] Dr. Helio Cee ALP [Catalytic activity/Vol] 75 U/L Normal 46-116 [facility] Comment on above: Performed By: #### V [id number] #### [facility] [address] [address] [address] Helio Cee ALT [Catalytic activity/Vol] 19 U/L Normal 14-59 [facility] Comment on above: Performed By: #### V [id number] #### [facility] [address] [place] [address] Dr. Helio Cee Anion gap [Moles/Vol] 11.7 mmol/L Normal [facility] Comment on above: Performed By: #### V [id number] #### [facility] [address] [address] [address] Helio Cee AST [Catalytic activity/Vol] 8 U/L Critically low 15-37 [facility] Comment on above: Performed By: #### V [id number] #### [facility] [address] [address] [address] Helio Cee Bilirubin [Mass/Vol] 0.3 mg/dL Normal 0.2-1.0 [facility] Comment on above: Performed By: #### V [id number] #### [facility] [address] [address] [address] Helio Cee Calcium [Mass/Vol] 9.0 mg/dL Normal 8.5-10.1 [facility] Comment on above: Performed By: #### V [id number] #### [facility] [address] [address] [address] Helio Cee Chloride [Moles/Vol] 107 mmol/L Normal 98-107 [facility] Comment on above: Performed By: #### V [id number] #### [facility] [address] [address] [address] Helio Cee CO2 [Moles/Vol] 24.7 mmol/L Normal 21.0-32.0 [facility] Comment on above: Performed By: #### V [id number] #### [facility] [address] [address] [address] Helio Cee Creatinine [Mass/Vol] 0.91 mg/dL Normal 0.55-1.02 [facility] Comment on above: Performed By: #### V [id number] #### [facility] [address] [address] [address] Helio Cee EGFR-AF NEW ZEALANDER >60 Normal >=60 [facility] Comment on above: Performed By: #### V [id number] #### [facility] [address] [address] [address] Helio Cee EGFR-NON AF NEW ZEALANDER 60 mL/min/1.73m2 Normal >=60 [facility] Comment on above: Performed By: #### V [id number] #### [facility] [address] [address] [address] Helio Cee Globulin (S) [Mass/Vol] 3.9 g/dL Normal [facility] Comment on above: Performed By: #### V [id number] #### [facility] [address] [address] [address] Helio Cee Glucose [Mass/Vol] 131 mg/dL Critically high 74-106 [facility] Comment on above: Performed By: #### V [id number] #### [facility] [address] [address] [address] Helio Cee Potassium [Moles/Vol] 3.4 mmol/L Critically low 3.5-5.1 [facility] Comment on above: Performed By: #### V [id number] #### [facility] [address] [place] [address] Dr. Hleio Cee Protein [Mass/Vol] 6.5 g/dL Normal 6.4-8.2 [facility] Comment on above: Performed By: #### V [id number] #### [facility] [address] [place] [address] Dr. Helio Cee Sodium [Moles/Vol] 140 mmol/L Normal 136-145 [facility] Comment on above: Performed By: #### V [id number] #### [facility] [address] [place] [address] Dr. Helio Cee Urea nitrogen [Mass/Vol] 14.0 mg/dL Normal 7.0-18.0 [facility] Comment on above: Performed By: #### V [id number] #### [facility] [address] [place] [address] Dr. Helio Cee Urea nitrogen/Creatinine [Mass ratio] 15.4 mg/mg Normal [facility] Comment on above: Performed By: #### V [id number] #### [facility] [address] [place] [address] Dr. Helio Cee BNPon 11-20-2021 Natriuretic peptide B (Bld) [Mass/Vol] 781.0 pg/mL Normal <=900.0 [facility] Comment on above: Performed By: #### E RUR #### [facility] [address] [place] [address] Dr. Helio Cee CBC AUTO DIFFon 11-20-2021 BASO # 0.0 103/ul Normal 0.0-0.1 [facility] Comment on above: Performed By: #### V [id number] #### [facility] [address] [place] [address] Dr. Helio Cee Basophils/100 WBC (Bld) 0.3 % Normal 0.2-2.0 [facility] Comment on above: Performed By: #### V [id number] #### [facility] [address] [place] [address] Dr. Helio Cee EO # 0.1 103/ul Normal 0.0-0.7 [facility] Comment on above: Performed By: #### V [id number] #### [facility] [address] [place] [address] Dr. Helio Cee Eosinophils/100 WBC (Bld) 0.5 % Critically low 0.9-7.0 [facility] Comment on above: Performed By: #### V [id number] #### [facility] [address] [place] [address] Dr. Helio Cee Erythrocyte distribution width (RBC) [Ratio] 14.5 % Normal 11.0-15.0 [facility] Comment on above: Performed By: #### V [id number] #### [facility] [address] [place] [address] Dr. Helio Cee Hematocrit (Bld) [Volume fraction] 36.6 % Normal 36.0-48.0 [facility] Comment on above: Performed By: #### V [id number] #### [facility] [address] [place] [address] Dr. Helio Cee Hemoglobin (Bld) [Mass/Vol] 11.5 g/dL Critically low 12.0-16.0 [facility] Comment on above: Performed By: #### V [id number] #### [facility] [address] [place] [address] Dr. Helio Cee IG # 0.07 10e3/ul Critically high 0.00-0.03 [facility] Comment on above: Performed By: #### V [id number] #### [facility] [address] [place] [address] Dr. Helio Cee IG % 0.5 % Normal 0.0-0.5 [facility] Comment on above: Performed By: #### V [id number] #### [facility] [address] [place] [address] Dr. Helio Cee LYMPH # 1.2 103/ul Normal 1.2-3.8 [facility] Comment on above: Performed By: #### V [id number] #### [facility] [address] [place] [address] Dr. Helio Cee Lymphocytes/100 WBC (Bld) 9.5 % Critically low 20.5-60.0 [facility] Comment on above: Performed By: #### V [id number] #### [facility] [address] [place] [address] Dr. Helio Cee MANUAL DIFF REQ NO Normal [facility] Comment on above: Performed By: #### V [id number] #### [facility] [address] [place] [address] Dr. Helio Cee MCH (RBC) [Entitic mass] 30.2 pg Normal 26.7-34.0 [facility] Comment on above: Performed By: #### V [id number] #### [facility] [address] [place] [address] Dr. Helio Cee MCHC (RBC) [Mass/Vol] 31.4 g/dL Normal 29.9-35.2 [facility] Comment on above: Performed By: #### V [id number] #### [facility] [address] [place] [address] Dr. Helio Cee MCV (RBC) [Entitic vol] 96.1 fL Normal 81.0-99.0 [facility] Comment on above: Performed By: #### V [id number] #### [facility] [address] [place] [address] Dr. Helio Cee MONO # 0.7 103/ul Normal 0.3-0.8 [facility] Comment on above: Performed By: #### V [id number] #### [facility] [address] [place] [address] Dr. Helio Cee Monocytes/100 WBC (Bld) 5.7 % Normal 1.7-12.0 [facility] Comment on above: Performed By: #### V [id number] #### [facility] [address] [place] [address] Dr. Helio Cee NEUT # 10.8 103/ul Critically high 1.4-6.5 [facility] Comment on above: Performed By: #### V [id number] #### [facility] [address] [place] [address] Dr. Helio Cee Neutrophils/100 WBC (Bld) 83.5 % Critically high 43.0-75.0 [facility] Comment on above: Performed By: #### V [id number] #### [facility] [address] [place] [address] Dr. Hleio Cee Platelet mean volume (Bld) [Entitic vol] 11.1 fL Normal 9.5-13.5 [facility] Comment on above: Performed By: #### V [id number] #### [facility] [address] [place] [address] Dr. Helio Cee PLT 231 103/ul Normal 150-450 [facility] Comment on above: Performed By: #### V [id number] #### [facility] [address] [place] [address] Dr. Helio Cee RBC 3.81 106/ul Critically low 4.20-5.40 [facility] Comment on above: Performed By: #### V [id number] #### [facility] [address] [place] [address] Dr. Helio Cee WBC 13.0 103/ul Critically high 4.0-11.0 [facility] Comment on above: Performed By: #### V [id number] #### [facility] [address] [place] [address] Dr. Helio Cee PROF 14(COMP METB)on 022 Albumin [Mass/Vol] 2.9 g/dL Critically low 3.4-5.0 [facility] Comment on above: Performed By: #### E RUR #### [facility] [address] [place] [address] Dr. Helio Cee Albumin/Globulin [Mass ratio] 0.8 {ratio} Normal [facility] Comment on above: Performed By: #### E RUR #### [facility] [address] [place] [address] Dr. Helio Cee ALP [Catalytic activity/Vol] 81 U/L Normal 46-116 [facility] Comment on above: Performed By: #### E RUR #### [facility] [address] [place] [address] Dr. Helio Cee ALT [Catalytic activity/Vol] 21 U/L Normal 14-59 [facility] Comment on above: Performed By: #### E RUR #### [facility] [address] [place] [address] Dr. Helio Cee Anion gap [Moles/Vol] 12.4 mmol/L Normal [facility] Comment on above: Performed By: #### E RUR #### [facility] [address] [place] [address] Dr. Helio Cee AST [Catalytic activity/Vol] 11 U/L Critically low 15-37 [facility] Comment on above: Performed By: #### E RUR #### [facility] [address] [place] [address] Dr. Helio Cee Bilirubin [Mass/Vol] 0.4 mg/dL Normal 0.2-1.0 [facility] Comment on above: Performed By: #### E RUR #### [facility] [address] [place] [address] Dr. Helio Cee Calcium [Mass/Vol] 8.7 mg/dL Normal 8.5-10.1 [facility] Comment on above: Performed By: #### E RUR #### [facility] [address] [place] [address] Dr. Helio Cee Chloride [Moles/Vol] 108 mmol/L Critically high 98-107 [facility] Comment on above: Performed By: #### E RUR #### [facility] [address] [place] [address] Dr. Helio Cee CO2 [Moles/Vol] 24.2 mmol/L Normal 21.0-32.0 [facility] Comment on above: Performed By: #### E RUR #### [facility] [address] [place] [address] Dr. Helio Cee Creatinine [Mass/Vol] 1.03 mg/dL Critically high 0.55-1.02 [facility] Comment on above: Performed By: #### E RUR #### [facility] [address] [place] [address] Dr. Helio Cee EGFR-AF NEW ZEALANDER >60 Normal >=60 [facility] Comment on above: Performed By: #### E RUR #### [facility] [address] [place] [address] Dr. Helio Cee EGFR-NON AF NEW ZEALANDER 52 mL/min/1.73m2 Critically low >=60 [facility] Comment on above: Performed By: #### E RUR #### [facility] [address] [place] [address] Dr. Helio Cee Globulin (S) [Mass/Vol] 3.5 g/dL Normal [facility] Comment on above: Performed By: #### E RUR #### [facility] [address] [place] [address] Dr. Helio Cee Glucose [Mass/Vol] 142 mg/dL Critically high 74-106 [facility] Comment on above: Performed By: #### E RUR #### [facility] [address] [place] [address] Dr. Helio Cee Potassium [Moles/Vol] 3.6 mmol/L Normal 3.5-5.1 [facility] Comment on above: Performed By: #### E RUR #### [facility] [address] [place] [address] Dr. Helio Cee Protein [Mass/Vol] 6.4 g/dL Normal 6.4-8.2 [facility] Comment on above: Performed By: #### E RUR #### [facility] [address] [place] [address] Dr. Helio Cee Sodium [Moles/Vol] 141 mmol/L Normal 136-145 [facility] Comment on above: Performed By: #### E RUR #### [facility] [address] [place] [address] Dr. Helio Cee Urea nitrogen [Mass/Vol] 19.0 mg/dL Critically high 7.0-18.0 [facility] Comment on above: Performed By: #### E RUR #### [facility] [address] [place] [address] Dr. Helio Cee Urea nitrogen/Creatinine [Mass ratio] 18.4 mg/mg Normal [facility] Comment on above: Performed By: #### E RUR #### [facility] [address] [place] [address] Dr. Helio Cee XR CHEST 2 Von [...] Date: 2021-11-20 07:56 Normal [facility] BNPon 11-19-2021 Natriuretic peptide B (Bld) [Mass/Vol] 777.0 pg/mL Normal <=900.0 [facility] Comment on above: Performed By: #### E RUR #### [facility] [address] [place] [address] Dr. Helio Cee CBC AUTO DIFFon 11-19-2021 BASO # 0.0 103/ul Normal 0.0-0.1 [facility] Comment on above: Performed By: #### V [id number] #### [facility] [address] [place] [address] Dr. Helio Cee Basophils/100 WBC (Bld) 0.2 % Normal 0.2-2.0 [facility] Comment on above: Performed By: #### V [id number] #### [facility] [address] [place] [address] Dr. Helio Cee EO # 0.1 103/ul Normal 0.0-0.7 [facility] Comment on above: Performed By: #### V [id number] #### [facility] [address] [place] [address] Dr. Helio Cee Eosinophils/100 WBC (Bld) 0.5 % Critically low 0.9-7.0 [facility] Comment on above: Performed By: #### V [id number] #### [facility] [address] [place] [address] Dr. Helio Cee Erythrocyte distribution width (RBC) [Ratio] 14.6 % Normal 11.0-15.0 [facility] Comment on above: Performed By: #### V [id number] #### [facility] [address] [place] [address] Dr. Helio Cee Hematocrit (Bld) [Volume fraction] 37.4 % Normal 36.0-48.0 [facility] Comment on above: Performed By: #### V [id number] #### [facility] [address] [place] [address] Dr. Helio Cee Hemoglobin (Bld) [Mass/Vol] 11.5 g/dL Critically low 12.0-16.0 [facility] Comment on above: Performed By: #### V [id number] #### [facility] [address] [place] [address] Dr. Helio Cee IG # 0.07 10e3/ul Critically high 0.00-0.03 [facility] Comment on above: Performed By: #### V [id number] #### [facility] [address] [place] [address] Dr. Helio Cee IG % 0.5 % Normal 0.0-0.5 [facility] Comment on above: Performed By: #### V [id number] #### [facility] [address] [address] [address] Helio Cee LYMPH # 1.1 103/ul Critically low 1.2-3.8 [facility] Comment on above: Performed By: #### V [id number] #### [facility] [address] [place] [address] Dr. Helio Cee Lymphocytes/100 WBC (Bld) 6.8 % Critically low 20.5-60.0 [facility] Comment on above: Performed By: #### V [id number] #### [facility] [address] [address] [address] Helio Cee MANUAL DIFF REQ NO Normal [facility] Comment on above: Performed By: #### V [id number] #### [facility] [address] [place] [address] Dr. Helio Cee MCH (RBC) [Entitic mass] 30.1 pg Normal 26.7-34.0 [facility] Comment on above: Performed By: #### V [id number] #### [facility] [address] [place] [address] Dr. Helio Cee MCHC (RBC) [Mass/Vol] 30.7 g/dL Normal 29.9-35.2 [facility] Comment on above: Performed By: #### V [id number] #### [facility] [address] [place] [address] Dr. Helio Cee MCV (RBC) [Entitic vol] 97.9 fL Normal 81.0-99.0 [facility] Comment on above: Performed By: #### V [id number] #### [facility] [address] [place] [address] Dr. Helio Cee MONO # 0.8 103/ul Normal 0.3-0.8 [facility] Comment on above: Performed By: #### V [id number] #### [facility] [address] [place] [address] Dr. Helio Cee Monocytes/100 WBC (Bld) 5.3 % Normal 1.7-12.0 [facility] Comment on above: Performed By: #### V [id number] #### [facility] [address] [address] [address] Helio Cee NEUT # 13.3 103/ul Critically high 1.4-6.5 [facility] Comment on above: Performed By: #### V [id number] #### [facility] [address] [address] [address] Helio Cee Neutrophils/100 WBC (Bld) 86.7 % Critically high 43.0-75.0 [facility] Comment on above: Performed By: #### V [id number] #### [facility] [address] [address] [address] Helio Cee Platelet mean volume (Bld) [Entitic vol] 11.4 fL Normal 9.5-13.5 [facility] Comment on above: Performed By: #### V [id number] #### [facility] [address] [address] [address] Helio Cee PLT 215 103/ul Normal 150-450 [facility] Comment on above: Performed By: #### V [id number] #### [facility] [address] [address] [address] Helio Cee RBC 3.82 106/ul Critically low 4.20-5.40 [facility] Comment on above: Performed By: #### V [id number] #### [facility] [address] [address] [address] Helio Cee WBC 15.3 103/ul Critically high 4.0-11.0 [facility] Comment on above: Performed By: #### V [id number] #### [facility] [address] [address] [address] Helio Cee PROF 14(COMP METB)on 022 Albumin [Mass/Vol] 2.8 g/dL Critically low 3.4-5.0 [facility] Comment on above: Performed By: #### E RUR #### [facility] [address] [address] [address] Helio Cee Albumin/Globulin [Mass ratio] 0.8 {ratio} Normal [facility] Comment on above: Performed By: #### E RUR #### [facility] [address] [address] [address] Helio Cee ALP [Catalytic activity/Vol] 74 U/L Normal 46-116 [facility] Comment on above: Performed By: #### E RUR #### [facility] [address] [address] [address] Helio Cee ALT [Catalytic activity/Vol] 21 U/L Normal 14-59 [facility] Comment on above: Performed By: #### E RUR #### [facility] [address] [address] [address] Helio Cee Anion gap [Moles/Vol] 13.5 mmol/L Normal [facility] Comment on above: Performed By: #### E RUR #### [facility] [address] [place] [address] Dr. Helio Cee AST [Catalytic activity/Vol] 11 U/L Critically low 15-37 [facility] Comment on above: Performed By: #### E RUR #### [facility] [address] [place] [address] Dr. Helio Cee Bilirubin [Mass/Vol] 0.5 mg/dL Normal 0.2-1.0 [facility] Comment on above: Performed By: #### E RUR #### [facility] [address] [place] [address] Dr. Helio Cee Calcium [Mass/Vol] 8.4 mg/dL Critically low 8.5-10.1 [facility] Comment on above: Performed By: #### E RUR #### [facility] [address] [address] [address] Helio Cee Chloride [Moles/Vol] 107 mmol/L Normal 98-107 [facility] Comment on above: Performed By: #### E RUR #### [facility] [address] [address] [address] Helio Cee CO2 [Moles/Vol] 21.0 mmol/L Normal 21.0-32.0 [facility] Comment on above: Performed By: #### E RUR #### [facility] [address] [address] [address] Helio Cee Creatinine [Mass/Vol] 1.07 mg/dL Critically high 0.55-1.02 [facility] Comment on above: Performed By: #### E RUR #### [facility] [address] [address] [address] Helio Cee EGFR-AF NEW ZEALANDER >60 Normal >=60 [facility] Comment on above: Performed By: #### E RUR #### [facility] [address] [address] [address] Helio Cee EGFR-NON AF NEW ZEALANDER 50 mL/min/1.73m2 Critically low >=60 [facility] Comment on above: Performed By: #### E RUR #### [facility] [address] [place] [address] Dr. Helio Cee Globulin (S) [Mass/Vol] 3.4 g/dL Normal [facility] Comment on above: Performed By: #### E RUR #### [facility] [address] [address] [address] Helio Cee Glucose [Mass/Vol] 109 mg/dL Critically high 74-106 [facility] Comment on above: Performed By: #### E RUR #### [facility] [address] [address] [address] Helio Cee Potassium [Moles/Vol] 3.5 mmol/L Normal 3.5-5.1 [facility] Comment on above: Performed By: #### E RUR #### [facility] [address] [address] [address] Helio Cee Protein [Mass/Vol] 6.2 g/dL Critically low 6.4-8.2 [facility] Comment on above: Performed By: #### E RUR #### [facility] [address] [address] [address] Helio Cee Sodium [Moles/Vol] 138 mmol/L Normal 136-145 [facility] Comment on above: Performed By: #### E RUR #### [facility] [address] [address] [address] Helio Cee Urea nitrogen [Mass/Vol] 25.0 mg/dL Critically high 7.0-18.0 [facility] Comment on above: Performed By: #### E RUR #### [facility] [address] [place] [address] Dr. Helio Cee Urea nitrogen/Creatinine [Mass ratio] 23.4 mg/mg Normal [facility] Comment on above: Performed By: #### E RUR #### [facility] [address] [address] [address] Helio Cee BNPon 11-18-2021 Natriuretic peptide B (Bld) [Mass/Vol] 386.0 pg/mL Normal <=900.0 [facility] Comment on above: Performed By: #### B SURGICAL NURSE PRACTITIONER, HSTROPN, BMP ####[facility] [id number] [address]Dr. Helio eCe CBC AUTO DIFFon 11-18-2021 BASO # 0.0 103/ul Normal 0.0-0.1 [facility] Comment on above: Performed By: #### V [id number] #### [facility] [address] [place] [address] Dr. Helio Cee Basophils/100 WBC (Bld) 0.3 % Normal 0.2-2.0 [facility] Comment on above: Performed By: #### V [id number] #### [facility] [address] [place] [address] Dr. Helio Cee EO # 0.0 103/ul Normal 0.0-0.7 [facility] Comment on above: Performed By: #### V [id number] #### [facility] [address] [place] [address] Dr. Helio Cee Eosinophils/100 WBC (Bld) 0.1 % Critically low 0.9-7.0 [facility] Comment on above: Performed By: #### V [id number] #### [facility] [address] [place] [address] Dr. Helio Cee Erythrocyte distribution width (RBC) [Ratio] 14.4 % Normal 11.0-15.0 [facility] Comment on above: Performed By: #### V [id number] #### [facility] [address] [place] [address] Dr. Helio Cee Hematocrit (Bld) [Volume fraction] 43.6 % Normal 36.0-48.0 [facility] Comment on above: Performed By: #### V [id number] #### [facility] [address] [place] [address] Dr. Helio Cee Hemoglobin (Bld) [Mass/Vol] 13.4 g/dL Normal 12.0-16.0 [facility] Comment on above: Performed By: #### V [id number] #### [facility] [address] [place] [address] Dr. Helio Cee IG # 0.03 10e3/ul Normal 0.00-0.03 [facility] Comment on above: Performed By: #### V [id number] #### [facility] [address] [place] [address] Dr. Helio Cee IG % 0.3 % Normal 0.0-0.5 [facility] Comment on above: Performed By: #### V [id number] #### [facility] [address] [place] [address] Dr. Helio Cee LYMPH # 0.4 103/ul Critically low 1.2-3.8 [facility] Comment on above: Performed By: #### V [id number] #### [facility] [address] [place] [address] Dr. Helio Cee Lymphocytes/100 WBC (Bld) 4.0 % Critically low 20.5-60.0 [facility] Comment on above: Performed By: #### V [id number] #### [facility] [address] [place] [address] Dr. Helio Cee MANUAL DIFF REQ NO Normal [facility] Comment on above: Performed By: #### V [id number] #### [facility] [address] [place] [address] Dr. Helio Cee MCH (RBC) [Entitic mass] 29.6 pg Normal 26.7-34.0 [facility] Comment on above: Performed By: #### V [id number] #### [facility] [address] [place] [address] Dr. Helio Cee MCHC (RBC) [Mass/Vol] 30.7 g/dL Normal 29.9-35.2 [facility] Comment on above: Performed By: #### V [id number] #### [facility] [address] [place] [address] Dr. Helio Cee MCV (RBC) [Entitic vol] 96.5 fL Normal 81.0-99.0 [facility] Comment on above: Performed By: #### V [id number] #### [facility] [address] [place] [address] Dr. Helio Cee MONO # 0.6 103/ul Normal 0.3-0.8 [facility] Comment on above: Performed By: #### V [id number] #### [facility] [address] [place] [address] Dr. Helio Cee Monocytes/100 WBC (Bld) 5.4 % Normal 1.7-12.0 [facility] Comment on above: Performed By: #### V [id number] #### [facility] [address] [place] [address] Dr. Helio Cee NEUT # 9.7 103/ul Critically high 1.4-6.5 [facility] Comment on above: Performed By: #### V [id number] #### [facility] [address] [place] [address] Dr. Helio Cee Neutrophils/100 WBC (Bld) 89.9 % Critically high 43.0-75.0 [facility] Comment on above: Performed By: #### V [id number] #### [facility] [address] [place] [address] Dr. Helio Cee Platelet mean volume (Bld) [Entitic vol] 10.9 fL Normal 9.5-13.5 [facility] Comment on above: Performed By: #### V [id number] #### [facility] [address] [place] [address] Dr. Helio Cee PLT 265 103/ul Normal 150-450 [facility] Comment on above: Performed By: #### V [id number] #### [facility] [address] [place] [address] Dr. Helio Cee RBC 4.52 106/ul Normal 4.20-5.40 [facility] Comment on above: Performed By: #### V [id number] #### [facility] [address] [place] [address] Dr. Helio Cee WBC 10.7 103/ul Normal 4.0-11.0 [facility] Comment on above: Performed By: #### V [id number] #### [facility] [address] [place] [address] Dr. Helio Cee CULTURE BLOODon 11-18-2021 Microscopic examination of blood, culture Culture Observations: NO GROWTH AT 5 DAYS. Normal [facility] Comment on above: Performed By: #### B [id number] #### [facility] [address] [place] [address] Dr. Helio Cee Microscopic examination of blood, culture Culture Observations: NO GROWTH AT 5 DAYS. Normal [facility] Comment on above: Performed By: #### B [id number] #### [facility] [address] [place] [address] Dr. Helio Cee [facility]on SARS-CoV-2 (COVID-19) RNA KIMMY+probe Ql (Unsp spec) Not detected Normal NOT DETECTED [facility] Comment on above: Result Comment: When [...] for this test is supported by the Environmental Conservation Officer of Health and Human Service's declaration that [...] By: #### E RUR #### [facility] [address] [place] [address] Dr. Helio Cee ER URINE PROFILEon 2 Bilirubin Ql (U) Negative Normal NEGATIVE [facility] Comment on above: Performed By: #### E RUR #### [facility] [address] [place] [address] Dr. Helio Cee Clarity (U) CLEAR Normal CLEAR [facility] Comment on above: Performed By: #### E RUR #### [facility] [address] [place] [address] Dr. Helio Cee Color (U) LT. YELLOW Normal YELLOW [facility] Comment on above: Performed By: #### E RUR #### [facility] [address] [place] [address] Dr. Helio Cee ERUAHD A micrscopic examina tion will be performed if indicated. Normal [facility] Comment on above: Performed By: #### E RUR #### [facility] [address] [place] [address] Dr. Helio Cee Glucose Ql (U) Negative Normal NEGATIVE [facility] Comment on above: Performed By: #### E RUR #### [facility] [address] [place] [address] Dr. Helio Cee Hemoglobin Ql (U) Negative Normal NEGATIVE [facility] Comment on above: Performed By: #### E RUR #### [facility] [address] [place] [address] Dr. Helio Cee Ketones Ql (U) Negative Normal NEGATIVE [facility] Comment on above: Performed By: #### E RUR #### [facility] [address] [place] [address] Dr. Helio Cee LEUKOCYTES Negative Normal NEGATIVE [facility] Comment on above: Performed By: #### E RUR #### [facility] [address] [place] [address] Dr. Helio Cee Nitrite Ql (U) Negative Normal NEGATIVE [facility] Comment on above: Performed By: #### E RUR #### [facility] [address] [place] [address] Dr. Helio Cee pH (U) 5.5 [pH] Normal 5-9 [facility] Comment on above: Performed By: #### E RUR #### [facility] [address] [place] [address] Dr. Helio Cee SPEC GRAVITY 1.015 Normal 1.005-<=1. 025 [facility] Comment on above: Performed By: #### E RUR #### [facility] [address] [place] [address] Dr. Helio Cee UA PROTEIN Negative Normal NEGATIVE/ TRACE [facility] Comment on above: Performed By: #### E RUR #### [facility] [address] [place] [address] Dr. Helio Cee UR MICRO IND NOT INDICATED Normal [facility] Comment on above: Performed By: #### E RUR #### [facility] [address] [place] [address] Dr. Helio Cee Urobilinogen Qn (U) 0.2 {Nevaeh'U}/dL Normal 0.2 - 1. 0 [facility] Comment on above: Performed By: #### E RUR #### [facility] [address] [place] [address] Dr. Helio Cee PROF CHEM 8 (BAS METB)on Anion gap [Moles/Vol] 13.6 mmol/L Normal [facility] Comment on above: Performed By: #### B SURGICAL NURSE PRACTITIONER, HSTROPN, BMP ####[facility] [id number] [address]Dr. Helio Cee Calcium [Mass/Vol] 9.1 mg/dL Normal 8.5-10.1 [facility] Comment on above: Performed By: #### B SURGICAL NURSE PRACTITIONER, HSTROPN, BMP ####[facility] [id number] [address]Dr. Helio Cee Chloride [Moles/Vol] 110 mmol/L Critically high 98-107 [facility] Comment on above: Performed By: #### B SURGICAL NURSE PRACTITIONER, HSTROPN, BMP ####[facility] [id number] [address]Dr. Helio Cee CO2 [Moles/Vol] 22.9 mmol/L Normal 21.0-32.0 [facility] Comment on above: Performed By: #### B SURGICAL NURSE PRACTITIONER, HSTROPN, BMP ####[facility] [address] [address]Dr. Helio Cee Creatinine [Mass/Vol] 1.47 mg/dL Critically high 0.55-1.02 [facility] Comment on above: Performed By: #### B SURGICAL NURSE PRACTITIONER, HSTROPN, BMP ####[facility] [address] [place], [place] [address]Dr. Helio Cee EGFR-AF NEW ZEALANDER 42 mL/min/1.73m2 Critically low >=60 [facility] Comment on above: Performed By: #### B SURGICAL NURSE PRACTITIONER, HSTROPN, BMP ####[facility] [address] [place], [place] [address]Dr. Helio Cee EGFR-NON AF NEW ZEALANDER 35 mL/min/1.73m2 Critically low >=60 [facility] Comment on above: Performed By: #### B SURGICAL NURSE PRACTITIONER, HSTROPN, BMP ####[facility] [address] [place], [place] [address]Dr. Helio Cee Glucose [Mass/Vol] 120 mg/dL Critically high 74-106 [facility] Comment on above: Performed By: #### B SURGICAL NURSE PRACTITIONER, HSTROPN, BMP ####[facility] [address] [place], [place] [address]Dr. Helio Cee Potassium [Moles/Vol] 3.5 mmol/L Normal 3.5-5.1 [facility] Comment on above: Performed By: #### B SURGICAL NURSE PRACTITIONER, HSTROPN, BMP ####[facility] [address] [place], [place] [id number]. Helio Cee Sodium [Moles/Vol] 143 mmol/L Normal 136-145 [facility] Comment on above: Performed By: #### B SURGICAL NURSE PRACTITIONER, HSTROPN, BMP ####[facility] [id number] [id number] Helio Cee Urea nitrogen [Mass/Vol] 29.0 mg/dL Critically high 7.0-18.0 [facility] Comment on above: Performed By: #### B SURGICAL NURSE PRACTITIONER, HSTROPN, BMP ####[facility] [id number] [id number] Helio Cee Urea nitrogen/Creatinine [Mass ratio] 19.7 mg/mg Normal [facility] Comment on above: Performed By: #### B SURGICAL NURSE PRACTITIONER, HSTROPN, BMP ####[facility] [address] [address]Dr. Helio Cee TROPONIN, HIGH SENSITIVITYon 11-18-2021 HSTROP 8.2 pg/mL Normal 4.0-51.3 [facility] Comment on above: Result Comment: CUT- OFF POINTS HAVE BEEN ESTABLISHED BASED ON THE FOURTH UNIVERSAL DEFINITIONS OF MYOCARDIAL INFARCTION. THE UPPER REFERENCE LIMIT (URL) OF TROPONIN, DEFINED THE 99TH PERCENTILE OF cTnI DISTRIBUTION IN A REFERENCE POPULATION, HAS BEEN CONFIRMED THE DECISION THRESHOLD FOR [place] DIAGNOSIS. Performed By: #### B SURGICAL NURSE PRACTITIONER, HSTROPN, BMP ####[facility] [id number] [id number] Helio Cee XR CHEST 1 Von 11-18-2021 [...] Date: 2021-11-18 10:38 Normal [facility] BNPon 10-25-2021 Natriuretic peptide B (Bld) [Mass/Vol] 396.0 pg/mL Normal <=900.0 [facility] Comment on above: Performed By: #### V [id number] #### [facility] [facility] [address] [place] [address] Dr. Helio Cee CBC AUTO DIFFon 10-25-2021 BASO # 0.1 103/ul Normal 0.0-0.1 [facility] Comment on above: Performed By: #### E RUR #### [facility] [address] [place] [address] Dr. Helio Cee Basophils/100 WBC (Bld) 1.0 % Normal 0.2-2.0 [facility] Comment on above: Performed By: #### E RUR #### [facility] [address] [place] [address] Dr. Helio Cee EO # 0.2 103/ul Normal 0.0-0.7 [facility] Comment on above: Performed By: #### E RUR #### [facility] [address] [place] [address] Dr. Helio Cee Eosinophils/100 WBC (Bld) 2.7 % Normal 0.9-7.0 [facility] Comment on above: Performed By: #### E RUR #### [facility] [address] [place] [address] Dr. Helio Cee Erythrocyte distribution width (RBC) [Ratio] 14.6 % Normal 11.0-15.0 [facility] Comment on above: Performed By: #### E RUR #### [facility] [address] [place] [address] Dr. Helio Cee Hematocrit (Bld) [Volume fraction] 44.8 % Normal 36.0-48.0 [facility] Comment on above: Performed By: #### E RUR #### [facility] [address] [place] [address] Dr. Helio Cee Hemoglobin (Bld) [Mass/Vol] 13.8 g/dL Normal 12.0-16.0 [facility] Comment on above: Performed By: #### E RUR #### [facility] [address] [address] [address] Helio Cee IG # 0.03 10e3/ul Normal 0.00-0.03 [facility] Comment on above: Performed By: #### E RUR #### [facility] [address] [place] [address] Dr. Helio Cee IG % 0.3 % Normal 0.0-0.5 [facility] Comment on above: Performed By: #### E RUR #### [facility] [address] [place] [address] Dr. Helio Cee LYMPH # 1.6 103/ul Normal 1.2-3.8 [facility] Comment on above: Performed By: #### E RUR #### [facility] [address] [place] [address] Dr. Helio Cee Lymphocytes/100 WBC (Bld) 18.5 % Critically low 20.5-60.0 [facility] Comment on above: Performed By: #### E RUR #### [facility] [address] [place] [address] Dr. Helio Cee MANUAL DIFF REQ NO Normal [facility] Comment on above: Performed By: #### E RUR #### [facility] [address] [place] [address] Dr. Helio Cee MCH (RBC) [Entitic mass] 29.9 pg Normal 26.7-34.0 [facility] Comment on above: Performed By: #### E RUR #### [facility] [address] [place] [address] Dr. Helio Cee MCHC (RBC) [Mass/Vol] 30.8 g/dL Normal 29.9-35.2 [facility] Comment on above: Performed By: #### E RUR #### [facility] [address] [place] [address] Dr. Helio Cee MCV (RBC) [Entitic vol] 97.2 fL Normal 81.0-99.0 [facility] Comment on above: Performed By: #### E RUR #### [facility] [address] [place] [address] Dr. Helio Cee MONO # 0.6 103/ul Normal 0.3-0.8 [facility] Comment on above: Performed By: #### E RUR #### [facility] [address] [place] [address] Dr. Helio Cee Monocytes/100 WBC (Bld) 7.0 % Normal 1.7-12.0 [facility] Comment on above: Performed By: #### E RUR #### [facility] [address] [place] [address] Dr. Helio Cee NEUT # 6.1 103/ul Normal 1.4-6.5 [facility] Comment on above: Performed By: #### E RUR #### [facility] [address] [place] [address] Dr. Helio Cee Neutrophils/100 WBC (Bld) 70.5 % Normal 43.0-75.0 [facility] Comment on above: Performed By: #### E RUR #### [facility] [address] [place] [address] Dr. Helio Cee Platelet mean volume (Bld) [Entitic vol] 11.0 fL Normal 9.5-13.5 [facility] Comment on above: Performed By: #### E RUR #### [facility] [address] [place] [address] Dr. Helio Cee PLT 292 103/ul Normal 150-450 [facility] Comment on above: Performed By: #### E RUR #### [facility] [address] [place] [address] Dr. Helio Cee RBC 4.61 106/ul Normal 4.20-5.40 [facility] Comment on above: Performed By: #### E RUR #### [facility] [address] [place] [address] Dr. Helio Cee WBC 8.6 103/ul Normal 4.0-11.0 [facility] Comment on above: Performed By: #### E RUR #### [facility] [address] [place], [place] [address] Dr. Helio Cee ECHOCARDIO M/2D COMPLETEon 0 10-25-2021 ECHOCARDIO M/2D COMPLETE Patient: AARON LEWIS Exam Date: 10/25/2021 : 1945 Gender:F Ordering : DR JEREMIAH REED M.D. Admission #: [id number] Family : Order #: [id number] CLICK HERE TO VIEW EXAM ECHOCARDIOGRAM REPORT [...] Area(A4C): 20.40 cm2 Left Atrium Systolic Volume(A2C): 05072 mm3 Left Atrium Systolic Volume(A4C): 83462 mm3 Mitral Valve MV E to A Ratio: 0.80 Deceleration [place]: 4670 mm/s2 Mitral Valve A-Wave Peak Velocity: [...] Cheema M.D. on 10/25/2021 at 19:31 Normal [facility] MAMM SCREEN 3D EBONI CADon 10-25-2021 MG MAMM SCREEN 3D EBONI CAD Patient: AARON LEWIS Exam Date: 10/25/2021 : 1945 Gender:F Ordering : DR JEREMIAH REED M.D. Admission #: [id number] Family : Order #: [id number] CLICK HERE TO VIEW EXAM RADIOLOGY REPORT [...] with breast cancer at age 72. LOCATION: [facility] BREAST COMPOSITION: Heterogeneously dense,which may obscure [...] Miller M.D. on 10/25/2021 at 15:33 Normal [facility] PROF 14(COMP METB)on 022 Albumin [Mass/Vol] 3.8 g/dL Normal 3.4-5.0 [facility] Comment on above: Performed By: #### V [id number] #### [facility] [address] [place] [address] Dr. Helio Cee Albumin/Globulin [Mass ratio] 1.1 {ratio} Normal [facility] Comment on above: Performed By: #### V [id number] #### [facility] [address] [place] [address] Dr. Helio Cee ALP [Catalytic activity/Vol] 97 U/L Normal 46-116 [facility] Comment on above: Performed By: #### V [id number] #### [facility] [address] [place] [address] Dr. Helio Cee ALT [Catalytic activity/Vol] 31 U/L Normal 14-59 [facility] Comment on above: Performed By: #### V [id number] #### [facility] [address] [place] [address] Dr. Helio Cee Anion gap [Moles/Vol] 11.0 mmol/L Normal [facility] Comment on above: Performed By: #### V [id number] #### [facility] [address] [place] [address] Dr. Helio Cee AST [Catalytic activity/Vol] 13 U/L Critically low 15-37 [facility] Comment on above: Performed By: #### V [id number] #### [facility] [address] [place] [address] Dr. Helio Cee Bilirubin [Mass/Vol] 0.4 mg/dL Normal 0.2-1.0 [facility] Comment on above: Performed By: #### V [id number] #### [facility] [address] [place] [address] Dr. Helio Cee Calcium [Mass/Vol] 9.3 mg/dL Normal 8.5-10.1 [facility] Comment on above: Performed By: #### V [id number] #### [facility] [address] [place] [address] Dr. Helio Cee Chloride [Moles/Vol] 108 mmol/L Critically high 98-107 [facility] Comment on above: Performed By: #### V [id number] #### [facility] [address] [place] [address] Dr. Helio Cee CO2 [Moles/Vol] 28.4 mmol/L Normal 21.0-32.0 [facility] Comment on above: Performed By: #### V [id number] #### [facility] [address] [place] [address] Dr. Helio Cee Creatinine [Mass/Vol] 1.09 mg/dL Critically high 0.55-1.02 [facility] Comment on above: Performed By: #### V [id number] #### [facility] [address] [place] [address] Dr. Helio Cee EGFR-AF [place] ZEALANDER 59 mL/min/1.73m2 Critically low >=60 [facility] Comment on above: Performed By: #### V [id number] #### [facility] [address] [place] [address] Dr. Helio Cee EGFR-NON AF [place] ZEALANDER 49 mL/min/1.73m2 Critically low >=60 [facility] Comment on above: Performed By: #### V [id number] #### [facility] [address] [place] [address] Dr. Helio Cee Globulin (S) [Mass/Vol] 3.4 g/dL Normal [facility] Comment on above: Performed By: #### V [id number] #### [facility] [address] [place] [address] Dr. Helio Cee Glucose [Mass/Vol] 100 mg/dL Normal 74-106 [facility] Comment on above: Performed By: #### V [id number] #### [facility] [address] [place] [address] Dr. Helio Cee Potassium [Moles/Vol] 4.4 mmol/L Normal 3.5-5.1 [facility] Comment on above: Performed By: #### V [id number] #### [facility] [address] [place] [address] Dr. Helio Cee Protein [Mass/Vol] 7.2 g/dL Normal 6.4-8.2 [facility] Comment on above: Performed By: #### V [id number] #### [facility] [address] [place] [address] Dr. Helio Cee Sodium [Moles/Vol] 143 mmol/L Normal 136-145 [facility] Comment on above: Performed By: #### V [id number] #### [facility] [address] [place] [address] Dr. Helio Cee Urea nitrogen [Mass/Vol] 24.0 mg/dL Critically high 7.0-18.0 [facility] Comment on above: Performed By: #### V [id number] #### [facility] [address] [place] [address] Dr. Helio Cee Urea nitrogen/Creatinine [Mass ratio] 22.0 mg/mg Normal [facility] Comment on above: Performed By: #### V [id number] #### [facility] [address] [place] [address] Dr. Helio Cee TSHon 10-25-2021 TSH 0.635 uIU/mL Normal 0.358-3.74 0 [facility] Comment on above: Performed By: #### V [id number] #### [facility] [address] [place] [address] Dr. Helio Cee Vital Signs Date Time Vital Sign Value Performing Clinician Facility 04-03-2024 12:00-0500 Body temperature 98 [degF] Jeremiah Reed MD Work Phone: [facility] 04-03-2024 12:00-0500 Diastolic blood pressure 83 mm[Hg] Jeremiah Reed MD Work Phone: [facility] 04-03-2024 12:00-0500 Heart rate 114 /min Jeremiah Reed MD Work Phone: [phone] [place] [address] 04-03-2024 12:00-0500 Respiratory rate 18 /min Jeremiah Reed MD Work Phone: [phone])[phone] [place] [address] 04-03-2024 12:00-0500 SaO2% (BldA) [Mass fraction] 94 % Jeremiah Reed MD Work Phone: [facility] 04-03-2024 12:00-0500 Systolic blood pressure 131 mm[Hg] Jeremiah Reed MD Work Phone: [facility] 04-03-2024 06:12-0500 Body weight 86.8 kg Jeremiah Reed MD Work Phone: [facility] 04-02-2024 08:00-0500 Inhaled oxygen flow rate 2 L/min Jeremiah Reed MD Work Phone: [facility] 03-31-2024 13:34-0500 Body height 160.02 cm Jeremiah Reed MD Work Phone: [facility] 03-31-2024 10:50-0500 Diastolic blood pressure 73 mm[Hg] Jeremiah Reed MD Work Phone: [facility] 03-31-2024 10:50-0500 Heart rate 94 /min Jeremiah Reed MD Work Phone: [facility] 03-31-2024 10:50-0500 Respiratory rate 16 /min Jeremiah Reed MD Work Phone: [facility] 03-31-2024 10:50-0500 SaO2% (BldA) [Mass fraction] 98 % Jeremiah Reed MD Work Phone: [facility] 03-31-2024 10:50-0500 Systolic blood pressure 141 mm[Hg] Jeremiah Reed MD Work Phone: [facility] 03-31-2024 07:20-0500 Body height 165.1 cm Jeremiah Reed MD Work Phone: [facility] 03-31-2024 07:20-0500 Body weight 87 kg Jeremiah Reed MD Work Phone: [facility] 03-31-2024 07:19-0500 Body temperature 98.4 [degF] Jeremiah Reed MD Work Phone: [facility] 03-23-2024 18:00-0500 Diastolic blood pressure 62 mm[Hg] Jeremiah Reed MD Work Phone: [facility] 03-23-2024 18:00-0500 Heart rate 82 /min Jeremiah Reed MD Work Phone: [facility] 03-23-2024 18:00-0500 Respiratory rate 18 /min Jeremiah Reed MD Work Phone: [facility] 03-23-2024 18:00-0500 SaO2% (BldA) [Mass fraction] 96 % Jeremiah Reed MD Work Phone: [facility] 03-23-2024 18:00-0500 Systolic blood pressure 128 mm[Hg] Jeremiah Reed MD Work Phone: [facility] 03-23-2024 13:42-0500 Body height 157.48 cm Jeremiah Reed MD Work Phone: [facility] 03-23-2024 13:42-0500 Body temperature 97.3 [degF] Jeremiah Reed MD Work Phone: [facility] 03-23-2024 13:42-0500 Body weight 81.19 kg Jeremiah Reed MD Work Phone: [facility] 03-12-2024 10:04-0400 Body mass index (BMI) [Ratio] 33.5 kg/m2 [facility] 03-12-2024 10:04-0400 Diastolic blood pressure 80 mm[Hg] [facility] 03-12-2024 10:04-0400 Heart rate 103 /min [facility] 03-12-2024 10:04-0400 Systolic blood pressure 133 mm[Hg] [facility] 03-11-2024 13:40-0400 Body height 161.29 cm [facility] 03-11-2024 13:40-0400 Body weight 87.08 kg [facility] 03-07-2024 11:13-0400 Body temperature 97.7 [degF] Renay Monteiro MD Work Phone: [facility] 03-07-2024 11:13-0400 Diastolic blood pressure 58 mm[Hg] Renay Monteiro MD Work Phone: [facility] 03-07-2024 11:13-0400 Heart rate 111 /min Renay Monteiro MD Work Phone: [facility] 03-07-2024 11:13-0400 Respiratory rate 17 /min Renay Monteiro MD Work Phone: [facility] 03-07-2024 11:13-0400 SaO2% (BldA) [Mass fraction] 91 % Renay Monteiro MD Work Phone: [facility] 03-07-2024 11:13-0400 Systolic blood pressure 137 mm[Hg] Renay Monteiro MD Work Phone: [facility] 03-07-2024 05:26-0400 Body mass index (BMI) [Ratio] 31.92 kg/m2 Renay Monteiro MD Work Phone: [facility] 03-07-2024 05:26-0400 Body weight 87 kg Renay Monteiro MD Work Phone: [facility] 03-02-2024 14:11-0400 Body height 165.1 cm Renay Monteiro MD Work Phone: [facility] 01-24-2024 12:56-0400 Body height 165.1 cm Christiano Maldonado DPM Work Phone: [facility] 01-24-2024 12:56-0400 Body mass index (BMI) [Ratio] 35.45 kg/m2 Christiano Maldonado DPM Work Phone: [facility] 01-24-2024 12:56-0400 Body weight 96.62 kg Christiano Maldonado DPM Work Phone: [facility] 01-24-2024 12:56-0400 Diastolic blood pressure 78 mm[Hg] Christiano Maldonado DPM Work Phone: [facility] 01-24-2024 12:56-0400 Heart rate 79 /min Christiano Maldonado DPM Work Phone: [facility] 01-24-2024 12:56-0400 Systolic blood pressure 125 mm[Hg] Christiano Maldonado DPM Work Phone: [facility] 12-25-2023 12:37-0400 Blood Pressure Location BRENDA MIAH [facility] 12-25-2023 12:37-0400 Body temperature 98.6 [degF] BRENDA MIA[facility] 12-25-2023 12:37-0400 Diastolic blood pressure 86 mm[Hg] BRENDA MIAH [facility] 12-25-2023 12:37-0400 Heart rate 70 /min BRENDA MIAH [facility] 12-25-2023 12:37-0400 Respiratory rate 16 /min BRENDA MIAH [facility] 12-25-2023 12:37-0400 Systolic blood pressure 137 mm[Hg] BRENDA MIAH [facility] 09-26-2023 15:39-0400 Blood Pressure Location BRENDA MIAH [facility] 09-26-2023 15:39-0400 Diastolic blood pressure 84 mm[Hg] BRENDA MIAH [facility] 09-26-2023 15:39-0400 Heart rate 68 /min BRENDA MIAH [facility] 09-26-2023 15:39-0400 Respiratory rate 16 /min BRENDA MIAH [facility] 09-26-2023 15:39-0400 Systolic blood pressure 132 mm[Hg] BRENDA MIAH [facility] 08-28-2023 14:59-0400 Blood Pressure Location BRENDA MIAH [facility] 08-28-2023 14:59-0400 Body temperature 98.24 [degF] BRENDA MIAH [facility] 08-28-2023 14:59-0400 Diastolic blood pressure 80 mm[Hg] BRENDA MIAH [facility] 08-28-2023 14:59-0400 Heart rate 92 /min BRENDA MIAH [facility] 08-28-2023 14:59-0400 Respiratory rate 16 /min BRENDA MIAH [facility] 08-28-2023 14:59-0400 Systolic blood pressure 132 mm[Hg] BRENDA MIAH [facility] 06-05-2023 12:55-0500 Blood Pressure Location BRENDA MIAH [facility] 06-05-2023 12:55-0500 Diastolic blood pressure 88 mm[Hg] BRENDA MIAH [facility] 06-05-2023 12:55-0500 Heart rate 74 /min BRENDA MIAH [facility] 06-05-2023 12:55-0500 Respiratory rate 16 /min BRENDA MIAH [facility] 06-05-2023 12:55-0500 Systolic blood pressure 134 mm[Hg] BREDNA MIAH [facility] 04-30-2023 15:30-0500 Body height 161.29 cm Jeremiah Reed Other [employer] Other 04-30-2023 15:30-0500 Body mass index (BMI) [Ratio] 35.29 kg/m2 Jeremiah Reed Other [employer] Other 04-30-2023 15:30-0500 Body weight 91.81 kg Jeremiah Reed Other [employer] Other 04-30-2023 15:30-0500 Diastolic blood pressure 74 mm[Hg] Jeremiah Reed Other [employer] Other 04-30-2023 15:30-0500 Systolic blood pressure 109 mm[Hg] Jeremiah Derek Other [facility] [employer] Other 04-13-2023 14:40-0500 [facility] 04-13-2023 14:40-0500 [facility] 04-13-2023 13:00-0500 Diastolic blood pressure 77 mm[Hg] mad [facility] 04-13-2023 13:00-0500 Heart rate 78 /min [facility] 04-13-2023 13:00-0500 [facility] 04-13-2023 13:00-0500 [facility] 04-13-2023 13:00-0500 Respiratory rate 16 /min [facility] 04-13-2023 13:00-0500 Systolic blood pressure 127 mm[Hg] mad [facility] 04-13-2023 12:13-0500 Heart rate 80 /min [facility] 04-13-2023 12:13-0500 SaO2% (BldA) [Mass fraction] 95 % [facility] 04-13-2023 12:12-0500 Body temperature 97.16 [degF] mad [facility] 04-13-2023 12:11-0500 Diastolic blood pressure 78 mm[Hg] mad [facility] 04-13-2023 12:11-0500 Mean blood pressure 94 mm[Hg] [facility] 04-13-2023 12:11-0500 Systolic blood pressure 125 mm[Hg] mad [facility] 04-13-2023 12:00-0500 [facility] 04-13-2023 12:00-0500 Promise [facility] 04-13-2023 09:10-0500 Diastolic blood pressure 70 mm[Hg] kit[facility]ag [facility] 04-13-2023 09:10-0500 Heart rate 87 /min [facility] 04-13-2023 09:10-0500 Mean blood pressure 90 mm[Hg] [facility] 04-13-[facility]23 09:10-0500 Respiratory rate 17 /min [facility] 04-13-2023 09:10-0500 Systolic blood pressure 130 mm[Hg] [facility] 04-13-2023 08:00-0500 SaO2% (BldA) [Mass fraction] 93 % [facility] 04-13-2023 07:29-0500 Heart rate 89 /min [facility] 04-13-2023 07:29-0500 SaO2% (BldA) [Mass fraction] 94 % [facility] 04-13-2023 07:29-0500 Mean blood pressure 88 mm[Hg] [facility] 04-13-2023 07:29-0500 Body temperature 97.88 [degF] kittyag [facility] 04-13-2023 05:00-0500 Blood Pressure Location [facility] 04-13-2023 05:00-0500 Heart rate 95 /min [facility] 04-13-2023 05:00-0500 Mean blood pressure 100 mm[Hg] [facility] 04-13-2023 00:18-0500 [facility] 04-13-2023 00:18-0500 Body temperature 97.52 [degF] [facility] 04-12-2023 20:33-0500 Body temperature 97.34 [degF] [facility] 04-12-2023 20:33-0500 Mean blood pressure 88 mm[Hg] [facility] 04-12-2023 18:03-0500 Blood Pressure Location [facility] 04-12-2023 16:49-0500 Respiratory rate 22 /min [facility] 04-12-2023 15:00-0500 Respiratory rate 20 /min [facility] 04-12-2023 12:24-0500 gluc 88 mg/dL [facility] 04-12-2023 12:24-0500 gluc [facility] 04-12-2023 12:19-0500 Body temperature 97.7 [degF] [facility] 03-29-2023 15:30-0500 Body height 161.29 cm Jeremiah Reed Other [employer] Other 03-29-2023 15:30-0500 Body mass index (BMI) [Ratio] 37.14 kg/m2 Jeremiah Reed Other [employer] Other 03-29-2023 15:30-0500 Body weight 96.62 kg Jeremiah Reed Other [employer] Other 03-29-2023 15:30-0500 Diastolic blood pressure 85 mm[Hg] Jeremiah Reed Other [employer] Other 03-29-2023 15:30-0500 Systolic blood pressure 144 mm[Hg] Jeremiah Reed Other [employer] Other 06-21-2022 14:42-0500 Blood Pressure Location BRENDA MARIN [facility] Encounters Encounter Date Encounter Type Care Provider Facility Start: 04-15-2024 End: 04-15-2024 ambulatory BRENDA MARIN Facility: You Start: 04-15-2024 End: 04-15-2024 Patient encounter procedure BRENDA MARIN [facility] Start: 04-02-2024 Non-patient / Non-visit Jeremiah Reed MD Work Phone: [facility] Work Phone: Start: 03-31-2024 End: 04-03-2024 Evaluation and management of inpatient Jeremiah Reed MD Work Phone: [facility] [place] [facility] Work Phone: Start: 03-24-2024 Non-patient / Non-visit Jeremiah Reed MD Work Phone: [facility] Work Phone: Start: 03-23-2024 End: 03-23-2024 Emergency department patient visit Jeremiah Reed MD Work Phone: [facility] Work Phone: Start: 03-13-2024 Non-patient / Non-visit Jeremiah Reed MD Work Phone: [facility] Work Phone: Start: 03-12-2024 End: 03-12-2024 ambulatory [facility] Work Phone: Start: 03-12-2024 End: 03-12-2024 Patient encounter procedure [facility] Work Phone: Start: 03-11-2024 Non-patient / Non-visit [facility] Work Phone: Start: 03-10-2024 End: 03-10-2024 Telephone encounter Ivett Burns [facility] Neurology Comment on above: Referral Start: 03-10-2024 Non-patient / Non-visit [facility] Work Phone: Start: 03-04-2024 End: 03-04-2024 ambulatory BRENDA SOLIMANRY Facility:[facility] Start: 03-04-2024 End: 03-04-2024 Patient encounter procedure BRENDA MARIN [facility] Start: 03-02-2024 Non-patient / Non-visit Jeremiah Reed MD Work Phone: [facility] Work Phone: Start: 03-02-2024 End: 03-07-2024 Evaluation and management of inpatient Renay Monteiro MD Work Phone: [facility] 9 Acute Comment on above: 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) Start: 03-01-2024 Non-patient / Non-visit [facility] Work Phone: Start: 02-04-2024 End: 02-04-2024 ambulatory Drake Delatorre MD Facility:[facility] Start: 01-24-2024 End: 01-24-2024 Bamboo flowsheet Christiano Maldonado DPM Work Phone: [facility] Start: 01-24-2024 End: 01-24-2024 Bamboo flowsheet Christiano Maldonado DPM Work Phone: [facility] Start: 01-24-2024 End: 01-24-2024 Patient encounter procedure Christiano Maldonado DPM Work Phone: [facility] Comment on above: Onychomycosis (Prima ry Dx); Toe pain, bilateral Start: 01-24-2024 End: 01-24-2024 ambulatory CHRISTIANO MALDONADO Not Available Start: 01-07-2024 End: 01-07-2024 ambulatory Drake Delatorre MD Facility:[facility] Start: 12-27-2023 End: 12-27-2023 ambulatory BRENDA SOLIMANRY Facility:[facility] Start: 12-27-2023 End: 12-27-2023 Patient encounter procedure BRENDA MARIN [facility] Start: 12-25-2023 End: 12-25-2023 ambulatory BRENDA Zulema MARIN Facility:[facility] Start: 12-25-2023 End: 12-25-2023 Patient encounter procedure BRENDA SOLIMANRY [facility] Start: 12-18-2023 Non-patient / Non-visit [facility] Work Phone: Start: 12-17-2023 End: 12-17-2023 ambulatory Drake Delatorre MD Facility: You Start: 12-03-2023 End: 12-03-2023 ambulatory Cayden GALLO Facility:[facility] Start: 12-03-2023 End: 12-03-2023 Patient encounter procedure Cayden GALLO [facility] Start: 11-26-2023 End: 11-26-2023 ambulatory Alexandro CARMONA Facility[facility] Start: 11-26-2023 End: 11-26-2023 Patient encounter procedure Alexandro CARMONA [facility] Start: 11-08-2023 End: 11-08-2023 ambulatory CHRISTIANO MALDONADO Not Available Start: 10-29-2023 End: 10-29-2023 ambulatory [facility] Start: 10-15-2023 End: 10-15-2023 ambulatory Drake Delatorre MD Facility:[facility] [place] Start: 09-26-2023 End: 09-26-2023 ambulatory BRENDA MARIN Facility:[facility] Start: 09-26-2023 End: 09-26-2023 Patient encounter procedure BRENDA SOLIMANRY [facility] Start: 09-17-2023 End: 09-17-2023 ambulatory Drake Delatorre MD Facility:[facility] Start: 08-30-2023 End: 08-30-2023 ambulatory CHRISTIANO MALDONADO Not Available Start: 08-28-2023 End: 08-28-2023 ambulatory BRENDA MARIN Facility:[facility] Start: 08-28-2023 End: 08-28-2023 Patient encounter procedure BRENDA MARIN [facility] Start: 07-23-2023 End: 07-23-2023 ambulatory Cayden GALLO Facility:[facility] Start: 07-23-2023 End: 07-23-2023 Patient encounter procedure Cayden GALLO [facility] Start: 07-09-2023 End: 07-09-2023 ambulatory BRENDA MARIN Facility:[facility] Start: 06-20-2023 End: 06-20-2023 ambulatory Jeremiah Reed Other [employer] Other Start: 06-20-2023 Telephone encounter Jeremiah Reed [facility] Start: 06-05-2023 End: 06-05-2023 ambulatory BRENDA MARIN Facility:[facility] Start: 06-05-2023 End: 06-05-2023 Lab Drop off BRENDA MARIN [facility] Start: 06-05-2023 End: 06-05-2023 ambulatory BERNDA MARIN Facility:[facility] Start: 06-05-2023 End: 06-05-2023 Patient encounter procedure BRENDA MARIN [facility] Start: 04-30-2023 End: 04-30-2023 ambulatory Jeremiah Reed Other [employer] Other Start: 04-30-2023 Office outpatient vi sit 25 minutes Jeremiah Reed [facility] Start: 04-30-2023 Telephone encounter Jeremiah Reed [facility] Start: 04-17-2023 End: 04-17-2023 ambulatory Jeremiah Reed Other [employer] Other Start: 04-17-2023 Telephone encounter Jeremiah Reed [facility] Start: 04-13-2023 End: 04-13-2023 ambulatory Ray Fofana Other [employer] Other Start: 04-13-2023 Telephone encounter Ray Fofana [facility] Start: 04-12-2023 End: 04-13-2023 Observation Efrain Kurtz [facility] Start: 04-09-2023 End: 04-09-2023 ambulatory Drake Delatorre MD Facility:[facility] Start: 03-30-2023 End: 03-30-2023 ambulatory Jeremiah Reed Other [employer] Other Start: 03-30-2023 Telephone encounter Jeremiah Reed [facility] Start: 03-29-2023 End: 03-29-2023 ambulatory Jeremiah Reed Other [employer] Other Start: 03-29-2023 Transitional care manage srvc 14 day discharge Jeremiah Reed [facility] Start: 03-05-2023 End: 03-05-2023 ambulatory Drake Delatorre MD Facility:[facility] Start: 09-01-2022 End: 09-02-[address] JEREMIAH REED Facility:[facility] Start: 08-29-2022 End: 08-30-2022 ambulatory NARENDRANAMARA LAKSHMIPATHY . Facility:[facility] Start: 08-21-2022 End: 08-22-[address] EHSAN MILLER Facility:[facility] Start: 08-10-2022 End: 08-11-2022 ambulatory BRENT MALDONADO Facility:[facility] Start: 06-21-2022 End: 06-21-2022 Patient encounter procedure BRENDA E MIAH [facility] Start: 06-12-2022 End: 06-13-[address] [...] Patient encounter procedure Radha Dong Work Phone: [facility] Start: 08-21-2018 End: 08-21-2018 Patient encounter procedure Radha Dong Work Phone: [facility] Start: 06-28-2018 End: 06-28-2018 Patient encounter procedure Radha Dong Work Phone: [facility] Procedures Date Procedure Procedure Detail Performing Clinician Start: 03-31-2024 Urine culture Jeremiah milner MD Work Phone: Start: 03-31-2024 Computed tomography of abdomen and pelvis with contrast Jeremiah Reed MD Work Phone: Start: 03-31-2024 CT of head without contrast Jeremiah Reed MD Work Phone: Start: 03-31-2024 Plain chest X-ray Casie Reed MD Work Phone: Start: 03-23-2024 Plain X-ray abdomen Laisha Reed MD Work Phone: Start: 03-23-2024 Urine culture Jeremiah milner MD Work Phone: Start: 03-04-2024 Radiologic exam ches t single view Aga Mendoza MD Work Phone: Start: 03-04-2024 Cell count misc body fluids w/differential count Aga Mendoza MD Work Phone: Start: 03-04-2024 Cul bact xcpt urine blood/stool aerobic isol Aga Mendoza MD Work Phone: Start: 03-04-2024 Glucose body fluid o ther than blood Aga Mendoza MD Work Phone: Start: 03-04-2024 Diagnostic lumbar sp inal puncture w/fluor or ct Aga Mendoza MD Work Phone: Start: 03-04-2024 Basic metabolic pane l calcium total Aga Mendoza MD Work Phone: Start: 03-03-2024 Basic metabolic pane l calcium total Aga Mendoza MD Work Phone: Start: 03-02-2024 Urnls dip stick/tabl et rgnt auto w/o microscopy Magali Beckett MD Work Phone: Start: 03-02-2024 Mri brain brain stem w/o w/contrast material Porfirio Choi MD Work Phone: Start: 03-02-2024 DISCONTINUE IN PROCE SS EEG TESTING Aga Mendoza MD Work Phone: Start: 03-02-2024 EEG VIDEO MONITORING Edelmira Choi MD Work Phone: Start: 03-02-2024 Comprehensive metabolic panel Porfirio Choi MD Work Phone: Start: 03-02-2024 EEG VIDEO MONITORING Edelmira Choi MD Work Phone: Start: 03-02-2024 Adult depression scr eening assessment [employer] Start: 03-02-2024 Comprehensive metabolic panel Porfirio Choi MD Work Phone: Start: 03-02-2024 PULSE OXIMETRY, SPOT Edelmira Choi MD Work Phone: Start: 12-03-2023 Cystoscopy BRENDA HAMLIN Start: 07-23-2023 Cystourethroscopy wi th dilation of urethral stricture BRENDA MARIN Start: 06-16-2016 Cystourethroscopy wi th dilation of urethral stricture BRENDA MARIN Appendectomy BRENDA MARIN Biopsy of breast BRENDA KINCAID Hysterectomy BRENDA MARIN Plan of Treatment Date Care Activity Detail Author Start: 03-07-2025 Adult BMI Screening Adult BMI Screen ing [facility] Start: 03-02-2025 Depression Screening Depression Scre ening [facility] Start: 03-02-2025 Tobacco Screening Tobacco Screening [facility] Start: 04-03-2024 End: 04-03-2024 Patient encounter procedure 04/03/2024 1:30 PM EST Procedure Visit [facility] [address] [facility] [address] [place] [address] Christiano Maldonado DPM [address] [facility] [address] [place] [address] [facility] Start: 04-03-2024 [facility] Start: 04-02-2024 Referral to rehabilitation physician [facility] Start: 04-01-2024 Comprehensive metabo lic 2000 panel - Serum or Plasma [facility] Start: 04-01-2024 [facility] Start: 03-31-2024 Bacteria identified in Blood by Culture Blood Culture [facility] Start: 03-31-2024 Bacteria identified in Urine by Culture Urine Culture [facility] Start: 03-31-2024 Physical therapy procedure [facility] Start: 03-31-2024 Referral to occupati onal therapist [facility] Start: 03-31-2024 Urine culture [facility] Start: 03-31-2024 [facility] Start: 03-31-2024 Hospital admission [facility] Start: 03-31-2024 End: 03-31-2024 [facility] Start: 03-31-2024 Urine culture [facility] Start: 03-23-2024 Urine culture [facility] Start: 03-23-2024 Bacteria identified in Urine by Culture Urine Culture [facility] Start: 01-24-2024 End: 01-24-2024 Patient encounter procedure 01/24/2024 1:00 PM EDT Procedure Visit [facility] [address] [facility] [address] [place] [address] Christiano Maldonado, BLAIRE [address] [facility] [address] [place] [address] Onychomycosis (Primary Dx); Toe pain, bilateral [facility] Comment on above: Onychomycosis (Prima ry Dx); Toe pain, bilateral Start: 01-13-2024 COVID-19 Vaccine ( season) COVID-19 Vaccine ( season) [facility] Start: 01-13-2024 Influenza vaccination P [facility] Start: 10-26-2022 ambulatory Ambulatory Facility:[facility] 1 Start: 01-12-2019 Influenza vaccination INFLUENZ A VACCINE (Season Ended) [facility] Start: 01-12-2018 Influenza vaccination INFLUENZA VACC INE (#1) [facility] Start: 02-10-2012 Fall Risk Screening Fall Risk Screen ing [facility] Start: 02-10-2012 Pneumococcal vaccination PNEUM OCOCCAL VACCINE SERIES (1 of 2 - PCV13) [facility] Start: 02-10-2012 Pneumococcal Vaccine : 65+ Years (1 of 1 - PCV) Pneumococcal Vaccine: 65+ Years (1 of 1 - PCV) [facility] Start: 1997 Administration of varicella zoster vaccine Zoster (Shingles) Vaccine (1 of 2) [facility] Start: 1997 Protein mass conc COLON CANCER SCREENING DISCUSSION [facility] Start: 1997 Zoster vaccine hzv l derrell for subcutaneous use ZOSTER (SHINGLES) VACCINE (1 of 2) [facility] Start: 1987 Fasting lipid profile LIPID SCREENIN G [facility] Start: 1987 Protein mass conc MAMMOGRAM SC REENING DISCUSSION [facility] Start: 02-10-1968 Screening for malign ant neoplasm of cervix PAP SMEAR DISCUSSION [facility] Start: 1966 DTaP,Tdap and Td Vaccines (1 - Tdap) DTaP,Tdap and Td Vaccines (1 - Tdap) [facility] Start: 1966 Third diphtheria, tetanus and acellular pertussis (DTaP) vaccination TDAP (ADULT) [facility] Start: 1965 Tetanus vaccination [facility] Start: 1947 Hepatitis C antibody , confirmatory test HEPATITIS C VIRUS SCREENING [facility] Start: 1947 Medicare Annual Well ness Visit Medicare Annual Wellness Visit [facility] Start: 1945 Screening for osteoporosis DEXA SCAN DISCUSSION [facility] Bacteria identified in Cerebral spinal fluid by Culture Spinal Fluid culture includes gram stain, CSF Microbiology Routine 03/04/2024 9:30 AM EDT [facility] Work Phone: End: 03-05-2025 Basic metabolic 2000 panel - Serum or Plasma Basic Metabolic Panel Lab Routine 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 starting 03/05/2024 until 03/05/2025 [facility] Work Phone: Comment on above: Once a week for 1 Oc currences starting 03/05/2024 until 03/05/2025 End: 03-05-2024 Holter monitor study 5 Day EEG Video Monitoring Neurology Routine Lab max of 3 days, Daily, for lab use only for 5 Occurrences starting 03/02/2024 until 03/05/2024, 2 completed [facility] Comment on above: Lab max of 3 days, D aily, for lab use only for 5 Occurrences starting 03/02/2024 until 03/05/2024, 2 completed Oxygen Therapy - Maintain SpO2: 90%; *DIRECTOR OF SCIENTIFIC RESEARCH Guidelines for O2: Yes; Document: \[email or web address].org\epi c\EPIC_Reference\Orders\ Respiratory Care Guidelines\CPG Oxygen 2022.pdf Oxygen Therapy - Maintain SpO2: 90%; *DIRECTOR OF SCIENTIFIC RESEARCH Guidelines for O2: Yes; Document: \[employer].org\ep ic\EPIC_Reference\Order s\Respiratory Care Guidelines\CPG Oxygen 2022.pdf Respiratory Care Routine As Needed until discontinued starting 03/02/2024 [facility] Work Phone: Comment on above: As Needed until disc ontinued starting 03/02/2024 Patient Education Constipation, Adult (DC) Urinary Tract Infection, Adult (DC) [facility] Work Phone: Patient referral [facility] Work Phone: Immunizations Immunization Date Immunization Notes Care Provider [facility] 03-31-2021 SARS-CoV-2 (COVID-19 ) mRNA BNT-162b2 vax BRENDA MARIN [facility] 07-21-2020 SARS-CoV-2 (COVID-19 ) Ad26 vaccine, recombinant BRENDA MARIN [facility] 04-11-2020 influenza virus vaccine, unspecified formulation BRENDA MARIN [facility] 04-11-2020 Influenza, High-dose , Quadrivalent Renay Monteiro MD Work Phone: [facility] 02-02-2011 influenza virus vaccine, unspecified formulation BRENDA MARIN [facility] 02-02-2011 influenza, seasonal, injectable Renay Monteiro MD Work Phone: [facility] Payers Date Payer Category Payer Self-pay [id number] [facility] [id number] 2021 Unknown 2012 Medicare 1957 Medicare [id number] 1959 Unknown [id number] 1947 Unknown [id number] 2.16.840.1.743750.3.579.2.5 93 1947 Unknown [id number] 2.16.840.1.470339.3.579.2.5 93 1947 Unknown [id number] 2.16.840.1.388771.3.579.2.5 93 1947 Unknown [id number] 2.16.840.1.812030.3.579.2.5 93 1947 Unknown [id number] 2.16.840.1.966342.3.579.2.5 93 1947 Unknown [id number] 2.16.840.1.909342.3.579.2.5 1947 Unknown [id number] 2.16.840.1.769420.3.579.2.5 1947 Unknown [id number] 2.16.840.1.157011.3.579.2.5 93 1947 Unknown [id number] 2.16.840.1.423507.3.579.2.5 1947 Unknown [id number] 2.16.840.1.529138.3.579.2.5 93 1947 Unknown [id number] 2.16.840.1.246639.3.579.2.5 1947 Unknown [id number] 2.16.840.1.682159.3.579.2.5 1947 Unknown [id number] 2.16.840.1.147460.3.579.2.5 1947 Unknown [id number] 2.16.840.1.223533.3.579.2.5 1947 Unknown [id number] 2.16.840.1.002850.3.579.2.5 1947 Unknown [id number] 2.16.840.1.846630.3.579.2.5 93 1947 Unknown [id number] 2.16.840.1.411111.3.579.2.5 93 1947 Unknown [id number] 2.16.840.1.621264.3.579.2.5 93 1947 Unknown [id number] 2.16.840.1.229230.3.579.2.5 93 1947 Unknown [id number] 2.16.840.1.289034.3.579.2.5 93 1947 Unknown [id number] 2.16.840.1.111120.3.579.2.5 93 1947 Unknown [id number] 2.16.840.1.599682.3.579.2.1 259 1947 Unknown [id number] 2.16.840.1.766898.3.579.2.1 259 1947 Unknown [id number] 2.16.840.1.773040.3.579.2.1 259 1947 Unknown [id number] 2.16.840.1.508739.3.579.2.1 96 1947 Unknown [id number] 2.16.840.1.708525.3.579.2.1 96 1947 Unknown [id number] 2.16.840.1.051166.3.579.2.1 96 1947 Unknown [id number] 2.16.840.1.150262.3.579.2.1 96 1947 Unknown [id number] 2.16.840.1.818662.3.579.2.1 96 1947 Unknown [id number] 2.16.840.1.077625.3.579.2.1 96 1947 Unknown [id number] 2.16.840.1.449603.3.579.2.1 96 1947 Unknown [id number] 2.16.840.1.675843.3.579.2.1 1947 Unknown [id number] 2.16.840.1.687224.3.579.2.7 1947 Unknown [id number] 2.16.840.1.391519.3.579.2.7 1947 Unknown [id number] 2.16.840.1.680915.3.579.2.7 1947 Unknown [id number] 2.16.840.1.248661.3.579.2.7 1947 Unknown [id number] 2.16.840.1.615771.3.579.2.7 1947 Unknown [id number] 2.16.840.1.532328.3.579.2.7 1947 Unknown [id number] 2.16.840.1.834817.3.579.2.7 1947 Unknown [id number] 2.16.840.1.375423.3.579.2.7 1947 Unknown [id number] 2.16.840.1.806070.3.579.2.7 1947 Unknown [id number] 2.16.840.1.971570.3.579.2.7 1947 Unknown [id number] 2.16.840.1.736534.3.579.2.7 1947 Unknown [id number] 2.16.840.1.310435.3.579.2.7 1947 Unknown [id number] 2.16.840.1.118694.3.579.2.7 Unknown Regular Insurance [id number] Unknown [id number] 2.16.840.1.605616.3.579.2.5 31 Unknown [id number] 2.16.840.1.106165.3.579.2.5 31 Social History Date Type Detail Facility Tobacco smoking stat us NHIS Unknown if ever smoked [facility] Start: 1945 Sex Assigned At Not on file [facility] Start: 02-03-2021 End: 08-30-2023 Tobacco smoking status Ex-smoker (finding) [facility] Start: 01-24-2024 End: 03-02-2024 Sex Assigned At Female [facility] Tobacco smoking status Never [facility] History of tobacco use Current smoker [facility] History of tobacco use Cigarette Smoker [facility] Start: 08-30-2023 End: 03-02-2024 Tobacco use and exposure Smokeless tobacco non-user [facility] Start: 03-05-2024 Alcoholic beverage intake Lifetime non-drinker (finding) [facility] [employer] [facility] Start: 01-24-2024 End: 03-02-2024 History of Social function [facility] Has the [employer], [employer], or water [employer] threatened to shut off services in your home in past 12Mo No [facility] How often to you hav e a drink containing alcohol? Never [facility] [employer] [facility] Start: 03-01-2024 End: 04-03-2024 Sex Female (finding) [facility] [employer] [facility] Start: 1945 Sex Assigned At Female F [facility] Start: 03-23-2024 End: 03-31-2024 Tobacco smoking status NHIS Never smoked tobacco (finding) [facility] History of tobacco use Passive smoker [facility] Start: 11-08-2023 End: 01-24-2024 Alcoholic beverage intake Defer [facility] Healthcare Goals Date Patient Goal Desired Activity /State Personal health goal Comment on above: Formatting of this n ote might be different from the original. Evaluation of progress towards goal: Functional Status Date Assessment Result Facility 04-03-2024 Functional status Patient at Baseline [facility] Work Phone: 12-25-2023 Functional Status N/A [facility] 12-03-2023 Functional Status N/A [facility] 09-26-2023 Functional Status N/A [facility] 08-28-2023 Functional Status N/A [facility] 06-05-2023 Functional Status N/A [facility] 04-12-2023 Functional Status N/A [facility] 04-12-2023 Functional Status [facility] 06-21-2022 Functional Status N/A [facility] Mental Status Date Assessment Result Facility 04-03-2024 Cognitive function Cognitive Sta tus Patient at Baseline [facility] Work Phone: [employer] [employer] [facility] Clinical Notes 01-12-2013 to 04-03-2024 Note Date & Type Note Facility 04-03-2024 Progress note Note Date/Time April 03, 2024 9:49am [facility] [address] [place] [address] Hospitalist Progress Note Signed Patient: Aaron Lewis MR#: [id number] : 1945 Acct:[id number] Age/Sex: 79 / F Adm Date: 4 Loc: Room: [address] [place] [address] Type: ADM IN Attending Dr: Rosendo Law MD Copies to: ~ Date of Service: 04/03/2024 Subjective Subjective Narrative: Doing well. Has ongoing pain around the left eye since zoster Exam Physical Exam Vital Signs: Temp Pulse Resp BP Pulse Ox O2 Del Method O2 Flow Rate 36.6 C 98 18 108/72 100 Room Air 2 04/03/24 08:00 04/03/24 08:00 04/03/24 08:00 04/03/24 08:00 04/03/24 08:00 04/03/24 08:00 04/02/24 08:00 Narrative: General: Alert, awake and not in any distress HEENT: PERRLA, and intact and normocephalic. Keeps applying ice pack over left side of the face Neck: Normal to inspection Lungs: Clear to auscultation, work of breathing within normal limit Cardiac: Regular rate and rhythm Abdomen: Soft, nontender, positive bowel sounds Genitourinary: Nath catheter in place draining clear urine Skin: Intact Hematology: No petechiae or excessive ecchymosis Musculoskeletal: Without significant trauma Neurological: Alert awake oriented x 3, no focal deficit. Some discomfort over left eye that is chronic Psych: No suicidal ideation or homicidal ideation Objective Lab Results 04/01/24 07:01 04/01/24 07:01 Microbiology Results Microbiology 03/31/24 07:43 Blood - Left Antecubital Blood Culture - Preliminary No Growth 3 Days 03/31/24 07:50 Blood - Right Antecubital Blood Culture - Preliminary No Growth 3 Days 03/31/24 07:19 Urine - Straight Cath Urine Culture - Final No Growth 2 Days Meds Allergies and Active Meds Allergies adhesive tape (Tape) Allergy (Verified 03/23/24 13:43) Rash Active Meds: Active Medications Generic Name Dose Route Start Last Admin Trade Name Axel PRN Reason Stop Dose Admin Acetaminophen 650 mg 03/31/24 14:48 04/03/24 01:02 Acetaminophen 325 Mg Tablet PO 03/31/25 14:47 650 mg Q12HR PRN Administration Pain Albuterol 1 puff 03/31/24 18:00 Albuterol Hfa 60 Puff/8 Gram Inhaler INHALATION 03/31/25 17:59 Q6HR PRN Shortness Of Breath Amlodipine Besylate 10 mg 04/01/24 09:00 04/03/24 09:20 Amlodipine 10 Mg Tablet PO 04/01/25 08:59 10 mg DAILY JEFFREY Administration Aspirin 81 mg 04/01/24 09:00 04/03/24 09:20 Aspirin 81 Mg Tablet.Dr PO 04/01/25 08:59 81 mg DAILY JEFFREY Administration Baclofen 10 mg 03/31/24 21:00 04/03/24 09:20 Baclofen 10 Mg Tablet PO 03/31/25 20:59 10 mg BID JEFFREY Administration Buspirone HCl 10 mg 03/31/24 21:00 04/03/24 09:20 Buspirone 10 Mg Tablet PO 03/31/25 20:59 10 mg BID JEFFREY Administration Calcium Carbonate 500 mg 04/02/24 08:34 04/03/24 09:20 Calcium Carbonate 500 Mg Tablet PO 04/01/25 08:59 500 mg DAILY JEFFREY Administration Ceftriaxone Sodium 1 gm 04/01/24 11:00 04/02/24 10:20 Ceftriaxone 1 Gm/10 Ml Syringe IV-PUSH 1 gm Q24H JEFFREY Administration Docusate Sodium 100 mg 03/31/24 21:00 04/03/24 09:20 Docusate 100 Mg Capsule PO 03/31/25 20:59 100 mg BID JEFFREY Administration Enoxaparin Sodium 40 mg 04/01/24 10:00 04/03/24 09:19 Enoxaparin 40 Mg/0.4 Ml Syringe SUBCUT 04/01/25 09:59 40 mg DAILY@10 JEFFREY Administration Gabapentin 300 mg 04/01/24 16:00 04/03/24 09:20 Gabapentin 300 Mg Capsule PO 03/31/25 21:29 300 mg TID JEFFREY Administration Hydrocortisone 1 applic 03/31/24 20:40 04/03/24 06:15 Hydrocortisone 1% Cream 28 Gm Tube TOPICAL 03/31/25 20:39 1 applic TID PRN Administration Itching, pain Melatonin 3 mg 03/31/24 12:15 04/02/24 21:49 Melatonin 3 Mg Tablet PO 03/31/25 12:14 3 mg QHS PRN Administration Insomnia Naproxen 250 mg 03/31/24 21:00 04/03/24 09:20 Naproxen 250 Mg Tablet PO 03/31/25 20:59 250 mg BID JEFFREY Administration Nortriptyline HCl 25 mg 03/31/24 22:00 04/02/24 21:49 Nortriptyline 25 Mg Capsule PO 03/31/25 21:59 25 mg QHS JEFFREY Administration Ondansetron HCl 4 mg 03/31/24 12:15 Ondansetron 4 Mg/2 Ml Vial IV-PUSH 03/31/25 12:14 Q8H PRN Nausea And Vomiting Oxycodone/Acetaminophen 1 tab 04/01/24 07:44 04/02/24 21:48 Oxycodone/Acetaminophen 5-325 Mg Tablet PO 1 tab TID PRN Administration pain Pantoprazole Sodium 40 mg 04/01/24 09:00 04/03/24 09:20 Pantoprazole 40 Mg Tablet.Dr PO 04/01/25 08:59 40 mg DAILY JEFFREY Administration Polyethylene Glycol 17 gm 03/31/24 12:33 04/01/24 11:12 Polyethylene Glycol 3350 17 Gm Powd.Pack PO 03/31/25 12:32 17 gm BID PRN Administration constipation Sennosides 8.6 mg 03/31/24 12:15 03/31/24 21:40 Sennosides 8.6 Mg Tablet PO 03/31/25 12:14 8.6 mg BID PRN Administration Constipation Sodium Chloride 0 ml 03/31/24 07:18 04/02/24 10:20 Sodium Chloride 0.9 % 10 Ml Syringe IV-PUSH 03/31/25 07:17 10 ml PRN PRN Administration Flush Tobramycin/Dexamethasone 1 drops 03/31/24 18:00 04/03/24 06:15 Tobramycin/Dex Op Susp 50 Drops/2.5 Ml Bottle EYE-BOTH 03/31/25 17:59 1 drops Q6HR JEFFREY Administration Tolterodine Tartrate 2 mg 04/01/24 06:30 04/03/24 06:15 Tolterodine 2 Mg Cap.Er.24h PO 04/01/25 06:29 2 mg DAILY@0630 JEFFREY Administration Vitamin D 50 mcg 04/01/24 09:00 04/03/24 09:20 Cholecalciferol 25 Mcg (1,000 Units) Tablet PO 04/01/25 08:59 50 mcg DAILY JEFFREY Administration A&P - Hospitalist Assessment/Plan (1) Acute metabolic encephalopathy: Plan: Resolved B12, folate, vitamin D, TSH level within normal limit Urine is also negative Likely secondary to urinary retention PT OT recommended rehab Discharge to senior living facility today Medically remained stable Will need outpatient follow-up with urology for urinary retention (2) CKD (chronic kidney disease), stage III: Plan: Creatinine close to baseline Has urinary retention and Nath catheter for that Failed voiding trial here despite having a bowel movement (3) Dehydration: Plan: Eating and drinking Volume status is improved Received fluid first and second day of hospitalization (4) Hypertension: Plan: Continue with amlodipine (5) Chronic back pain greater than 3 months duration: Plan: PT OT evaluation. 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 Spoke with patient's son Elijah over the phone and updated him as well at [phone] Moderate level of MDM based on above issue and discussing plan This note is created using voice recognition software. All efforts were made tominimize errors, if they are is due to assistant designer. Rosendo Law MD Hospitalist Documented By: Rosendo Law MD 04/03/2447 Signed By: <Electronically signed by Rosendo Law MD> 04/03/2449 [facility] Work Phone: 1(171) 755-486511-21-2024 Discharge summary Author Rosendo Law [facility] Note Date/Time April 03, 2024 9:46am [facility] [address] [place] [address] Discharge Summary Signed with Addenda Patient: Aaron Lewis MR#: [id number] : 1945 Acct:[id number] Age/Sex: 79 / F Adm Date: 4 Loc: Room: [address] [place] [address]: Rosendo Law MD Copies to: MD Rosendo Wray MD~ ADDENDUM1 Spoke with patient's son Martin over the phone and updated him as well. Plan for discharge to [facility]. Follow-up with urology as outpatient. Urine culture negative has no further need for antibiotic. Will need outpatientvoiding trial with urology. Addendum Documented By: Rosendo Law MD 04/03/24945 Addendum Signed By: <Electronically signed by Rosendo Law MD> 04/03/24 0946 Providers Date of Discharge: 04/02/24 Discharging Provider: Rosendo Law Primary Care Provider: Jeremiah Reed Consults: 03/31/24 12:15 Consult to Occupational Therapy Routine Comment: Physician Instructions: Consult to OT for:: Evaluation and Treat Consult to Physical Therapy Routine Comment: Physician Instructions: Consult to PT for:: Evaluation and Treat 04/02/24 08:40 Consult to Physiatry Routine Comment: Consulting Provider: [facility] - Phys Med - Rehab Reason For Exam: eval for rehab Has Provider Been Notified: Yes Date of Notification: 04/02/24 Time of Notification: 08:41 Discharge Diagnosis (1) Acute metabolic encephalopathy: (2) CKD (chronic kidney disease), stage III: (3) Dehydration: (4) Hypertension: (5) Chronic back pain greater than 3 months duration: (6) 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 Patient was recently here in the emergency department was diagnosed with a UTI and discharged on Keflex which is sensitive. Despite that she was not getting any better and was brought into the emergency department. Upon arrival she was found to have urine retention and Nath catheter was placed and she started on ceftriaxone. Urine culture here came back negative patient is constipated and was treated for that at that resolved. After that she had voiding trial but was unable to void and the Nath catheter was replaced again. Her urine culture is negative and she does not warrant any further antibiotics. PT OT recommended rehab and family is interested in going to acute rehab. Once that is arranged patient will be discharged there for rehabilitation and will follow-up with Dr. Gallo as outpatient Condition Condition at Discharge: Stable Status at Discharge Functional status at discharge: uses cane/walker Overall status at discharge: patient is progressing back to baseline Time Spent with Patient Time spent providing/coordinating discharge services (# min): 44 Discharge Plan Discharge Plan Patient Disposition: Rehab [facility] Activity: Ambulate as Tolerated Diet: Low-Sodium Prescriptions: Continued omeprazole 40 mg capsule,delayed release(DR/EC) See Rx Instructions .ROUTE .COMPLEX Qty: 90 0RF Dose Instruction: TAKE 1 CAPSULE BY MOUTH EVERY DAY 30 MINUTES BEFORE MORNING MEAL FOR 90 DAYS Rx Instructions: TAKE 1 CAPSULE BY MOUTH EVERY DAY 30 MINUTES BEFORE MORNING MEAL FOR 90 DAYS nortriptyline 25 mg Capsule 25 mg PO QHS 30 Days Qty: 30 0RF polyethylene glycol 3350 [Miralax] 17 gram/dose powder 17 g PO BID PRN (Reason: constipation) Qty: 238 0RF Rx Instructions: mix into 4-8 oz. of any hot/cold/room temp. beverage; use immediately gabapentin 300 mg capsule 300 mg PO TID meloxicam 15 mg tablet 7.5 mg PO DAILY tobramycin-dexamethasone 0.3-0.1 % drops,suspension 1 drp Eye-Both Q6H amlodipine 5 mg tablet 10 mg PO DAILY Rx Instructions: TAKE 1 TABLET BY MOUTH EVERY DAY FOR 30 DAYS buspirone 10 mg tablet 10 mg PO BID Rx Instructions: TAKE 1 TABLET BY MOUTH TWICE A DAY baclofen 10 mg tablet 10 mg PO BID oxycodone-acetaminophen 5-325 mg tablet 1 tab PO TID PRN (Reason: pain) 3 Days Qty: 9 0RF trospium 20 mg tablet 20 mg PO BID Rx Instructions: administer on an empty stomach albuterol sulfate 90 mcg/actuation HFA aerosol inhaler 1 inh inhalation Q6HR acetaminophen [Pain Relief (acetaminophen)] 650 mg tablet extended release 650 mg PO Q12HR aspirin 81 mg tablet,delayed release (DR/EC) 81 mg PO DAILY calcium carbonate 600 mg calcium (1,500 mg) tablet 600 mg PO DAILY cholecalciferol (vitamin D3) 50 mcg (2,000 unit) capsule 50 mcg PO DAILY glucosamine cub-egvryzlwzz-evp 500-400-200 mg tablet 1 tab PO BID Discontinued cephalexin 500 mg capsule 500 mg PO BID Qty: 14 0RF Follow Up: Cayden Gallo MD [Active Staff] - Jeremiah Reed MD [Primary Care Provider] - Exam Physical Exam Vital Signs: Temp Pulse Resp BP Pulse Ox O2 Del Method O2 Flow Rate 36.9 C 94 16 141/84 H 95 Room Air 2 04/02/24 08:16 04/02/24 08:16 04/02/24 08:16 04/02/24 08:16 04/02/24 08:16 04/02/24 08:16 04/01/24 00:05 Narrative: General: Alert, awake and not in any distress HEENT: PERRLA, and intact and normocephalic. Neck: Normal to inspection Lungs: Clear to auscultation, work of breathing within normal limit Cardiac: Regular rate and rhythm Abdomen: Soft, nontender, positive bowel sounds Genitourinary: Nath catheter in place draining clear urine Skin: Intact Hematology: No petechiae or excessive ecchymosis Musculoskeletal: Without significant trauma Neurological: Alert awake oriented x 3, no focal deficit. Some discomfort over left eye that is chronic Psych: No suicidal ideation or homicidal ideation Diagnostic Studies Completed and Pending Studies Pending studies at discharge: 03/31/24 07:43 Blood Culture Stat Preliminary micro results at discharge 03/31/24 07:43 Blood Culture - Preliminary Blood - Left Antecubital No Growth 2 Days 03/31/24 07:50 Blood Culture - Preliminary Blood - Right Antecubital No Growth 2 Days Documented By: Rosendo Law MD 04/02/24 1044 Signed By: <Electronically signed by Rosendo Law MD> 04/02/24 1050 [facility] Work Phone: 1(592) 878-583311-21-2024 [place] [address] Hospitalist Progress Note Signed Patient: Aaron Lewis MR#: [id number] : 1945 Acct:[id number] Age/Sex: 79 / F Adm Date: 4 Loc: Room: [address] [place] [address] Type: ADM IN Attending Dr: Rosendo Law MD Copies to: ~ Date of Service: 04/03/2024 Subjective Subjective Narrative: Doing well. Has ongoing pain around the left eye since zoster Exam Physical Exam Vital Signs: Temp Pulse Resp BP Pulse Ox O2 Del Method O2 Flow Rate 36.6 C 98 18 108/72 100 Room Air 2 04/03/24 08:00 04/03/24 08:00 04/03/24 08:00 04/03/24 08:00 04/03/24 08:00 04/03/24 08:00 04/02/24 08:00 Narrative: General: Alert, awake and not in any distress HEENT: PERRLA, and intact and normocephalic. Keeps applying ice pack over left side of the face Neck: Normal to inspection Lungs: Clear to auscultation, work of breathing within normal limit Cardiac: Regular rate and rhythm Abdomen: Soft, nontender, positive bowel sounds Genitourinary: Nath catheter in place draining clear urine Skin: Intact Hematology: No petechiae or excessive ecchymosis Musculoskeletal: Without significant trauma Neurological: Alert awake oriented x 3, no focal deficit. Some discomfort over left eye that is chronic Psych: No suicidal ideation or homicidal ideation Objective Lab Results 04/01/24 07:01 04/01/24 07:01 Microbiology Results Microbiology 03/31/24 07:43 Blood - Left Antecubital Blood Culture - Preliminary No Growth 3 Days 03/31/24 07:50 Blood - Right Antecubital Blood Culture - Preliminary No Growth 3 Days 03/31/24 07:19 Urine - Straight Cath Urine Culture - Final No Growth 2 Days Meds Allergies and Active Meds Allergies adhesive tape (Tape) Allergy (Verified 03/23/24 13:43) Rash Active Meds: Active Medications Generic Name Dose Route Start Last Admin Trade Name Freq PRN Reason Stop Dose Admin Acetaminophen 650 mg 03/31/24 14:48 04/03/24 01:02 Acetaminophen 325 Mg Tablet PO 03/31/25 14:47 650 mg Q12HR PRN Administration Pain Albuterol 1 puff 03/31/24 18:00 Albuterol Hfa 60 Puff/8 Gram Inhaler INHALATION 03/31/25 17:59 Q6HR PRN Shortness Of Breath Amlodipine Besylate 10 mg 04/01/24 09:00 04/03/24 09:20 Amlodipine 10 Mg Tablet PO 04/01/25 08:59 10 mg DAILY JEFFREY Administration Aspirin 81 mg 04/01/24 09:00 04/03/24 09:20 Aspirin 81 Mg Tablet.Dr PO 04/01/25 08:59 81 mg DAILY JEFFREY Administration Baclofen 10 mg 03/31/24 21:00 04/03/24 09:20 Baclofen 10 Mg Tablet PO 03/31/25 20:59 10 mg BID JEFFREY Administration Buspirone HCl 10 mg 03/31/24 21:00 04/03/24 09:20 Buspirone 10 Mg Tablet PO 03/31/25 20:59 10 mg BID JEFFREY Administration Calcium Carbonate 500 mg 04/02/24 08:34 04/03/24 09:20 Calcium Carbonate 500 Mg Tablet PO 04/01/25 08:59 500 mg DAILY JEFFREY Administration Ceftriaxone Sodium 1 gm 04/01/24 11:00 04/02/24 10:20 Ceftriaxone 1 Gm/10 Ml Syringe IV-PUSH 1 gm Q24H JEFFREY Administration Docusate Sodium 100 mg 03/31/24 21:00 04/03/24 09:20 Docusate 100 Mg Capsule PO 03/31/25 20:59 100 mg BID JEFFREY Administration Enoxaparin Sodium 40 mg 04/01/24 10:00 04/03/24 09:19 Enoxaparin 40 Mg/0.4 Ml Syringe SUBCUT 04/01/25 09:59 40 mg DAILY@10 JEFFREY Administration Gabapentin 300 mg 04/01/24 16:00 04/03/24 09:20 Gabapentin 300 Mg Capsule PO 03/31/25 21:29 300 mg TID JEFFREY Administration Hydrocortisone 1 applic 03/31/24 20:40 04/03/24 06:15 Hydrocortisone 1% Cream 28 Gm Tube TOPICAL 03/31/25 20:39 1 applic TID PRN Administration Itching, pain Melatonin 3 mg 03/31/24 12:15 04/02/24 21:49 Melatonin 3 Mg Tablet PO 03/31/25 12:14 3 mg QHS PRN Administration Insomnia Naproxen 250 mg 03/31/24 21:00 04/03/24 09:20 Naproxen 250 Mg Tablet PO 03/31/25 20:59 250 mg BID JEFFREY Administration Nortriptyline HCl 25 mg 03/31/24 22:00 04/02/24 21:49 Nortriptyline 25 Mg Capsule PO 03/31/25 21:59 25 mg QHS JEFFREY Administration Ondansetron HCl 4 mg 03/31/24 12:15 Ondansetron 4 Mg/2 Ml Vial IV-PUSH 03/31/25 12:14 Q8H PRN Nausea And Vomiting Oxycodone/Acetaminophen 1 tab 04/01/24 07:44 04/02/24 21:48 Oxycodone/Acetaminophen 5-325 Mg Tablet PO 1 tab TID PRN Administration pain Pantoprazole Sodium 40 mg 04/01/24 09:00 04/03/24 09:20 Pantoprazole 40 Mg Tablet.Dr PO 04/01/25 08:59 40 mg DAILY JEFFREY Administration Polyethylene Glycol 17 gm 03/31/24 12:33 04/01/24 11:12 Polyethylene Glycol 3350 17 Gm Powd.Pack PO 03/31/25 12:32 17 gm BID PRN Administration constipation Sennosides 8.6 mg 03/31/24 12:15 03/31/24 21:40 Sennosides 8.6 Mg Tablet PO 03/31/25 12:14 8.6 mg BID PRN Administration Constipation Sodium Chloride 0 ml 03/31/24 07:18 04/02/24 10:20 Sodium Chloride 0.9 % 10 Ml Syringe IV-PUSH 03/31/25 07:17 10 ml PRN PRN Administration Flush Tobramycin/Dexamethasone 1 drops 03/31/24 18:00 04/03/24 06:15 Tobramycin/Dex Op Susp 50 Drops/2.5 Ml Bottle EYE-BOTH 03/31/25 17:59 1 drops Q6HR JEFFREY Administration Tolterodine Tartrate 2 mg 04/01/24 06:30 04/03/24 06:15 Tolterodine 2 Mg Cap.Er.24h PO 04/01/25 06:29 2 mg DAILY@0630 JEFFREY Administration Vitamin D 50 mcg 04/01/24 09:00 04/03/24 09:20 Cholecalciferol 25 Mcg (1,000 Units) Tablet PO 04/01/25 08:59 50 mcg DAILY JEFFREY Administration A&P - Hospitalist Assessment/Plan (1) Acute metabolic encephalopathy: Plan: Resolved B12, folate, vitamin D, TSH level within normal limit Urine is also negative Likely secondary to urinary retention PT OT recommended rehab Discharge to senior living facility today Medically remained stable Will need outpatient follow-up with urology for urinary retention (2) CKD (chronic kidney disease), stage III: Plan: Creatinine close to baseline Has urinary retention and Nath catheter for that Failed voiding trial here despite having a bowel movement (3) Dehydration: Plan: Eating and drinking Volume status is improved Received fluid first and second day of hospitalization (4) Hypertension: Plan: Continue with amlodipine (5) Chronic back pain greater than 3 months duration: Plan: PT OT evaluation. 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 Spoke with patient's son Elijah over the phone and updated him as well at [phone] Moderate level of MDM based on above issue and discussing plan This note is created using voice recognition software. All efforts were made tominimize errors, if they are is due to assistant designer. Rosendo Law MD Hospitalist Documented By: Rosendo Law MD 04/03/24 0947 Signed By: 04/03/24 0949 [facility]11-21-2024 [id number] Discharge Summary Signed with Addenda Patient: Aaron Lewis MR#: [id number] : 1945 Acct:[id number] Age/Sex: 79 / F Adm Date: 4 Loc: Room: [address] [place] [address]: Rosendo Law MD Copies to: MD Rosendo Wray MD~ ADDENDUM1 Spoke with patient's son Martin over the phone and updated him as well. Plan for discharge to [facility] today. Follow-up with urology as outpatient. Urine culture negative has no further needfor antibiotic. Will need outpatientvoiding trial with urology. Addendum Documented By: Rosendo Law MD 04/03/24945 Addendum Signed By: 04/03/2446 Providers Date of Discharge: 04/02/24 Discharging Provider: Rosendo Law Primary Care Provider: Jeremiah Reed Consults: 03/31/24 12:15 Consult to Occupational Therapy Routine Comment: Physician Instructions: Consult to OT for:: Evaluation and Treat Consult to Physical Therapy Routine Comment: Physician Instructions: Consult to PT for:: Evaluation and Treat 04/02/24 08:40 Consult to Physiatry Routine Comment: Consulting Provider: [facility] - Phys Med - Rehab Reason For Exam: eval for rehab Has Provider Been Notified: Yes Date of Notification: 04/02/24 Time of Notification: 08:41 Discharge Diagnosis (1) Acute metabolic encephalopathy: (2) CKD (chronic kidney disease), stage III: (3) Dehydration: (4) Hypertension: (5) Chronic back pain greater than 3 months duration: (6) 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 Patient was recently here in the emergencydepartment was diagnosed with a UTI and discharged on Keflex which is sensitive. Despite that she was not getting any better and was brought into the emergency department. Upon arrival she was found to have urine retention and Nath catheter was placed and she started on ceftriaxone. Urine culture here came back negative patient is constipated and was treated for that at that resolved. After thatshe had voiding trial but was unable to void and the Nath catheter was replaced again. Her urine culture is negative and she does not warrant any further antibiotics. PT OT recommended rehab and family is interested in going to acute rehab. Once that is arranged patient will be discharged there for rehabilitation and will follow- up with Dr. Gallo as outpatient Condition Condition at Discharge: Stable Status at Discharge Functional status at discharge: uses cane/walker Overall status at discharge: patient is progressing back to baseline Time Spent with Patient Time spent providing/coordinating discharge services (# min): 44 Discharge Plan Discharge Plan Patient Disposition: Rehab [facility] Activity: Ambulate as Tolerated Diet: Low-Sodium Prescriptions: Continued omeprazole 40 mg capsule,delayed release(DR/EC) See Rx Instructions .ROUTE .COMPLEX Qty: 90 0RF Dose Instruction: TAKE 1 CAPSULE BY MOUTH EVERY DAY 30 MINUTES BEFORE MORNING MEAL FOR 90 DAYS Rx Instructions: TAKE 1 CAPSULE BY MOUTH EVERY DAY 30 MINUTES BEFORE MORNING MEAL FOR 90 DAYS nortriptyline 25 mg Capsule 25 mg PO QHS 30 Days Qty: 30 0RF polyethylene glycol 3350 [Miralax] 17 gram/dose powder 17 g PO BID PRN (Reason: constipation) Qty: 238 0RF Rx Instructions: mix into 4-8 oz. of any hot/cold/room temp. beverage; use immediately gabapentin 300 mg capsule 300 mg PO TID meloxicam 15 mg tablet 7.5 mg PO DAILY tobramycin-dexamethasone 0.3-0.1 % drops,suspension 1 drp Eye-Both Q6H amlodipine 5 mg tablet 10 mg PO DAILY Rx Instructions: TAKE 1 TABLET BY MOUTH EVERY DAY FOR 30 DAYS buspirone 10 mg tablet 10 mg PO BID Rx Instructions: TAKE 1 TABLET BY MOUTH TWICE A DAY baclofen 10 mg tablet 10 mg PO BID oxycodone-acetaminophen 5-325 mg tablet 1 tab PO TID PRN (Reason: pain) 3 Days Qty: 9 0RF trospium 20 mg tablet 20 mg PO BID Rx Instructions: administer on an empty stomach albuterol sulfate 90 mcg/actuation HFA aerosol inhaler 1 inh inhalation Q6HR acetaminophen [Pain Relief (acetaminophen)] 650 mg tablet extended release 650 mg PO Q12HR aspirin 81 mg tablet,delayed release (DR/EC) 81 mg PO DAILY calcium carbonate 600 mg calcium (1,500 mg) tablet 600 mg PO DAILY cholecalciferol (vitamin D3) 50 mcg (2,000 unit) capsule 50 mcg PO DAILY glucosamine iyf-kffaujfnhj-don 500-400-200 mg tablet 1 tab PO BID Discontinued cephalexin 500 mg capsule 500 mg PO BID Qty: 14 0RF Follow Up: Cayden Gallo MD [Active Staff] - Jeremiah Reed MD [Primary Care Provider] - Exam Physical Exam Vital Signs: Temp Pulse Resp BP Pulse Ox O2 Del Method O2 Flow Rate 36.9 C 94 16 141/84 H 95 Room Air 2 04/02/24 08:16 04/02/24 08:16 04/02/24 08:16 04/02/24 08:16 04/02/24 08:16 04/02/24 08:16 04/01/24 00:05 Narrative: General: Alert, awake and not in any distress HEENT: PERRLA, and intact and normocephalic. Neck: Normal to inspection Lungs: Clear to auscultation, work of breathing within normal limit Cardiac: Regular rate and rhythm Abdomen: Soft, nontender, positive bowel sounds Genitourinary: Nath catheter in place draining clear urine Skin: Intact Hematology: No petechiae or excessive ecchymosis Musculoskeletal: Without significant trauma Neurological: Alert awake oriented x 3, no focal deficit. Some discomfort over left eye that is chronic Psych: No suicidal ideation or homicidal ideation Diagnostic Studies Completed and Pending Studies Pending studies at discharge: 03/31/24 07:43 Blood Culture Stat Preliminary micro results at discharge 03/31/24 07:43 Blood Culture - Preliminary Blood - Left Antecubital No Growth 2 Days 03/31/24 07:50 Blood Culture - Preliminary Blood - Right Antecubital No Growth 2 Days Documented By: Rosendo Law MD 04/02/24 1044 Signed By: 04/02/24 1050 [facility]11-20-2024 Consult note Author Ray Fofana [facility] Note Date/Time April 02, 2024 2:18pm [facility] [address] [place] [address] Physiatry (Rehab) Consult Note Signed Patient: Aaron Lewis MR#: [id number] : 1945 Acct:[id number] Age/Sex: 79 / F Adm Date: 4 Loc: Room: [address] [place] [address] Type: ADM IN Attending Dr: Rosendo Law MD Copies to: MD Jeremiah Velez MD Nishit P Shah, MD~ Etiologic Dx/Impairment Group Narrative Narrative: Debility HPI Consult Date: 04/02/24 Requesting Physician: Rosendo Law MD Primary Care Provider: Jeremiah Reed MD Consult Narrative Reason for consult: UTI; encephalopathy, ? rehab placement HPI: Ms. Lewis is a 79 year old female with medical history as below presenting with functional decline. Patient has been having generalized functional decline and becoming more difficult to care for at home. 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 She presented to the emergency room about 10 days ago with confusion and was treated for urinary urinary tract infection. Since that time, her family has continued to struggle with her care at home, she presented with increased confusion and weakness and some abdominal pain on March 31. She was found to have urinary retention, Nath catheter was placed. Her urine culture was negative. Review of Systems Review of Systems All other systems reviewed & are negative unless noted below or in HPI [facility] Medical History Hypertension Problem List clean-up per request of Phys. EHR Cmte Osteoporosis Primary hyperparathyroidism Landaverde's neuroma Hyperparathyroidism Hypercalcemia Essential (primary) hypertension COPD, moderate CKD (chronic kidney disease), stage III Anxiety Osteoporosis Problem List clean-up per request of Phys. EHR Cmte Smoker Problem List clean-up per request of Phys. EHR Cmte Uterine cancer Problem List clean-up per request of Phys. EHR Cmte GERD (gastroesophageal reflux disease) Problem List clean-up per request of Phys. EHR Cmte Ovarian cancer right Problem List clean-up per request of Phys. EHR Cmte Surgical History H/O: hysterectomy History of lumbar laminectomy History of lumbar fusion Problem List clean-up per request of Phys. EHR Cmte H/O left breast biopsy Problem List clean-up per request of Phys. EHR Cmte H/O hysterectomy with oophorectomy Problem List clean-up per request of Phys. EHR Cmte H/O oophorectomy right Problem List clean-up per request of Phys. EHR Cmte Family History Sister Brittle bone disease Daughter Fibromyalgia Legacy FamHx Relation: Daughter(s) Father History of stroke Legacy FamHx Problem: Diagnosed with Stroke Family/Other Legacy FamHx Problem: 1 sister :1 grandson over dose Mother Cancer Legacy FamHx Problem: Diagnosed with Cancer Son Hypertension Sister Diabetes Legacy FamHx Problem: 1 sister Social History Smoking Status: Former smoker Tobacco Type: cigarettes Substance Use Type: None Meds Medications and Allergies Allergies adhesive tape (Tape) Allergy (Verified 03/23/24 13:43) Rash Home Medications nortriptyline 25 mg capsule 25 mg PO QHS 30 days #30 caps 05/04/20 [Rx Confirmed 03/31/24] omeprazole 40 mg capsule,delayed release See Rx Instructions .Route .COMPLEX #90caps 02/11/24 [Rx Confirmed 03/31/24] acetaminophen 650 mg tablet,extended release (Pain Relief (acetaminophen)) 650 mg PO Q12HR 03/12/24 [History Confirmed 03/31/24] albuterol sulfate 90 mcg/actuation aerosol inhaler 1 inh inhalation Q6HR 03/12/24 [History Confirmed 03/31/24] aspirin 81 mg tablet,delayed release 81 mg PO DAILY 03/12/24 [History Confirmed 03/31/24] calcium carbonate 600 mg PO DAILY 03/12/24 [History Confirmed 03/31/24] cholecalciferol (vitamin D3) 50 mcg (2,000 unit) capsule 50 mcg PO DAILY 03/12/24 [History Confirmed 03/31/24] glucosamine sulfate 500 mg-chondroitin 400 mg-msm 200 mg tablet 1 tab PO BID 03/12/24 [History Confirmed 03/31/24] trospium 20 mg tablet 20 mg PO BID 03/12/24 [History Confirmed 03/31/24] polyethylene glycol 3350 17 gram/dose oral powder (Miralax) 17 g PO BID PRN constipation #238 grams 03/23/24 [Rx Confirmed 03/31/24] amlodipine 5 mg tablet 10 mg PO DAILY 03/31/24 [History Confirmed 03/31/24] baclofen 10 mg tablet 10 mg PO BID 03/31/24 [History Confirmed 03/31/24] buspirone 10 mg tablet 10 mg PO BID 03/31/24 [History Confirmed 03/31/24] gabapentin 300 mg capsule 300 mg PO TID 03/31/24 [History Confirmed 04/01/24] meloxicam 15 mg tablet 7.5 mg PO DAILY 03/31/24 [History Confirmed 03/31/24] tobramycin 0.3 %-dexamethasone 0.1 % eye drops,suspension 1 drp Eye-Both Q6H 03/31/24 [History Confirmed 03/31/24] oxycodone-acetaminophen 5 mg-325 mg tablet 1 tab PO TID PRN pain 3 days #9 tabs 04/02/24 [Rx] Exam Physical Exam Vital Signs: Temp Pulse Resp BP Pulse Ox O2 Del Method O2 Flow Rate 98.5 F 94 16 141/84 H 95 Room Air 2 04/02/24 08:16 04/02/24 08:16 04/02/24 08:16 04/02/24 08:16 04/02/24 08:16 04/02/24 08:16 04/01/24 00:05 Narrative: Pleasant No acute distress Unlabored breathing Abdomen soft Generally weak. Results - Phys. Rehab Additional Results Results Comment: I reviewed clinical lab tests, radiology reports and obtained and summated medical records and have ordered follow up lab tests and imaging studies as needed for rehabilitation care. Assessment/Plan (1) Acute urinary retention: (2) Altered mental status: (3) Dehydration: (4) Acute metabolic encephalopathy: (5) Hypertension: Qualifiers: Hypertension type: primary hypertension Qualified Code(s): I10 - Essential (primary) hypertension Plan Ms. Lewis is a 79 year old female with medical history as below presenting with functional decline. Therapy notes reviewed, she ambulated 20 feet contact-guard assist. She is standby assist with all of her self-care. Lacks medical complexity to justify rehab admission, her decline is more generalized and over the course of months. Would recommend lower level of care such as senior living facility or home with home health care Patient was personally seen by me, Dr. Fofana, on the day of encounter, reviewed the history and the relevant portions of the chart, including current orders, allied health and multi site leasing consultant notes, labs/imaging and performed damon elements of exam and I formulated the plan of care and facilitated the medical decision making. I completed a substantive portion of this encounter, the medical decision making portion of this note in its entirety, including Allied health note review, nursing note review, multi site leasing consultant note review, discussion with nursing and case management, and more than 50% of my time was spent on counseling and coordination of care, time spent 45 minutes Documented By: Ray Fofana MD 04/02/24 0853 Signed By: <Electronically signed by Ray Fofana MD> 04/02/24 [facility] Work Phone: 1(591) 232-559911-20-2024 [place] [address] Physiatry (Rehab) Consult Note Signed Patient: Aaron Lewis MR#: [id number] : 1945 Acct:[id number] Age/Sex: 79 / F Adm Date: 4 Loc: Room: [address] [place] [address] Type: ADM IN Attending Dr: Rosendo Law MD Copies to: MD Jeremiah Velez MD Nishit P Shah, MD~ Etiologic Dx/Impairment Group Narrative Narrative: Debility HPI Consult Date: 04/02/24 Requesting Physician: Rosendo Law MD Primary Care Provider: Jeremiah Reed MD Consult Narrative Reason for consult: UTI; encephalopathy, ? rehab placement HPI: Ms. Lewis is a 79 year old female with medical history as below presenting with functional decline. Patient has been having generalized functional decline and becoming more difficult to care for at home. 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 She presented to the emergency room about 10 days ago with confusion and was treated for urinary urinary tract infection. Since that time, her family has continued to struggle with her care at home, she presented with increased confusion and weakness and some abdominal pain on March 31. She was found to have urinary retention, Nath catheter was placed. Her urine culture was negative. Review of Systems Review of Systems All other systems reviewed & are negative unless noted below or in HPI [facility] Medical History Hypertension Problem List clean-up per request of Phys. EHR Cmte Osteoporosis Primary hyperparathyroidism Landaverde's neuroma Hyperparathyroidism Hypercalcemia Essential (primary) hypertension COPD, moderate CKD (chronic kidney disease), stage III Anxiety Osteoporosis Problem List clean-up per request of Phys. EHR Cmte Smoker Problem List clean-up per request of Phys. EHR Cmte Uterine cancer Problem List clean-up per request of Phys. EHR Cmte GERD (gastroesophageal reflux disease) Problem List clean-up per request of Phys. EHR Cmte Ovarian cancer right Problem List clean-up per request of Phys. EHR [facility] Surgical History H/O: hysterectomy History of lumbar laminectomy History of lumbar fusion Problem List clean-up per request of Phys. EHR Cmte H/O left breast biopsy Problem List clean-up per request of Phys. EHR [facility] H/O hysterectomy with oophorectomy Problem List clean-up per request of Phys. EHR Cmte H/O oophorectomy right Problem List clean-up per request of Phys. EHR Cmte Family History Sister Brittle bone disease Daughter Fibromyalgia Legacy FamHx Relation: Daughter(s) Father History of stroke Legacy FamHx Problem: Diagnosed with Stroke Family/Other Legacy FamHx Problem: 1 sister :1 grandson over dose Mother Cancer Legacy FamHx Problem: Diagnosed with Cancer Son Hypertension Sister Diabetes Legacy FamHx Problem: 1 sister Social History Smoking Status: Former smoker Tobacco Type: cigarettes Substance Use Type: None Meds Medications and Allergies Allergies adhesive tape (Tape) Allergy (Verified 03/23/24 13:43) Rash Home Medications nortriptyline 25 mg capsule 25 mg PO QHS 30 days #30 caps 05/04/20 [Rx Confirmed 03/31/24] omeprazole 40 mg capsule,delayed release See Rx Instructions .Route .COMPLEX #90caps 02/11/24 [Rx Confirmed 03/31/24] acetaminophen 650 mg tablet,extended release (Pain Relief (acetaminophen)) 650 mg PO Q12HR 03/12/24[History Confirmed 03/31/24] albuterol sulfate 90 mcg/actuation aerosol inhaler 1 inh inhalation Q6HR 03/12/24 [History Confirmed 03/31/24] aspirin 81 mg tablet,delayed release 81 mg PO DAILY 03/12/24 [History Confirmed 03/31/24] calcium carbonate 600 mg PO DAILY 03/12/24 [History Confirmed 03/31/24] cholecalciferol (vitamin D3) 50 mcg (2,000 unit) capsule 50 mcg PO DAILY 03/12/24 [History Confirmed 03/31/24] glucosamine sulfate 500 mg-chondroitin 400 mg-msm 200 mg tablet 1 tab PO BID 03/12/24 [History Confirmed 03/31/24] trospium 20 mg tablet 20 mg PO BID 03/12/24 [History Confirmed 03/31/24] polyethylene glycol 3350 17 gram/dose oral powder (Miralax) 17 g PO BID PRN constipation #238 grams03/23/24 [Rx Confirmed 03/31/24] amlodipine 5 mg tablet 10 mg PO DAILY 03/31/24 [History Confirmed 03/31/24] baclofen 10 mg tablet 10 mg PO BID 03/31/24 [History Confirmed 03/31/24] buspirone 10 mg tablet 10 mg PO BID 03/31/24 [History Confirmed 03/31/24] gabapentin 300 mg capsule 300 mg PO TID 03/31/24 [History Confirmed 04/01/24] meloxicam 15 mg tablet 7.5 mg PO DAILY 03/31/24 [History Confirmed 03/31/24] tobramycin 0.3 %-dexamethasone 0.1 % eye drops,suspension 1 drp Eye-Both Q6H 03/31/24 [History Confirmed 03/31/24] oxycodone-acetaminophen 5 mg-325 mg tablet 1 tab PO TID PRN pain 3 days #9 tabs 04/02/24 [Rx] Exam Physical Exam Vital Signs: Temp Pulse Resp BP Pulse Ox O2 Del Method O2 Flow Rate 98.5 F 94 16 141/84 H 95 Room Air 2 04/02/24 08:16 04/02/24 08:16 04/02/24 08:16 04/02/24 08:16 04/02/24 08:16 04/02/24 08:16 04/01/24 00:05 Narrative: Pleasant No acute distress Unlabored breathing Abdomen soft Generally weak. Results - Phys. Rehab Additional Results Results Comment: I reviewed clinical lab tests, radiology reports and obtained and summated medical records and haveordered follow up lab tests and imaging studies as needed for rehabilitation care. Assessment/Plan (1) Acute urinary retention: (2) Altered mental status: (3) Dehydration: (4) Acute metabolic encephalopathy: (5) Hypertension: Qualifiers: Hypertension type: primary hypertension Qualified Code(s): I10 - Essential (primary) hypertension Plan Ms. Lewis is a 79 year old female with medical history as below presenting with functional decline. Therapy notes reviewed, she ambulated 20 feet contact-guard assist. She is standby assist with all of her self-care. Lacks medical complexity to justify rehab admission, her decline is more generalized and over the course of months. Would recommend lower level of care such as senior living facility or home with home health care Patient was personally seen by me, Dr. Fofana, on the day of encounter, reviewed the history and therelevant portions of the chart, including current orders, allied health and multi site leasing consultant notes, labs/imaging and performed damon elements of exam and I formulated the plan of care and facilitated the medical decision making. I completed a substantive portion of this encounter, the medical decision making portion of this note in its entirety, including Allied health note review, nursing note review, multi site leasing consultant note review, discussion with nursing and case management, and more than 50% of my time was spent on counseling and coordination of care, time spent 45 minutes Documented By: Ray Fofana MD 04/02/24 0853 Signed By: 04/02/24 1418 [facility]11-19-2024 Progress note Author Rosendo Law [facility] Note Date/Time April 01, 2024 9:55am [facility] [address] [place] [address] Hospitalist Progress Note Signed Patient: Aaron Lewis MR#: [id number] : 1945 Acct:[id number] Age/Sex: 79 / F Adm Date: 4 Loc: 3T Room: [address] [place] [address] Type: ADM IN Attending Dr: Rosendo Law MD Copies to: ~ Date of Service: 04/01/2024 Subjective Subjective Narrative: Patient feels constipated. Talked about bowel regimen and working with therapy. When she has a bowel movement will discontinue Nath catheter and try voiding catheter. Explained that if she is unable to void on her own she will need catheter placement again and follow-up with urology. definitely a lot less confused and alert. On room air. Spoke with primary nurse as well Exam Physical Exam Vital Signs: Temp Pulse Resp BP Pulse Ox O2 Del Method O2 Flow Rate 36.3 C L 98 18 127/81 95 Room Air 2 04/01/24 08:12 04/01/24 08:12 04/01/24 08:12 04/01/24 08:12 04/01/24 08:12 04/01/24 09:11 04/01/24 00:05 Narrative: General: Alert, awake and not in any distress HEENT: PERRLA, and intact and normocephalic. Dry mucous membrane Neck: Normal to inspection Lungs: Clear to auscultation, work of breathing within normal limit Cardiac: Regular rate and rhythm Abdomen: Soft, nontender, positive bowel sounds Genitourinary: Nath catheter in place draining marine urine Skin: Intact Hematology: No petechiae or excessive ecchymosis Musculoskeletal: Without significant trauma Neurological: Alert awake oriented x 3, alert where she is at, no focal deficit Psych: No suicidal ideation or homicidal ideation Objective Lab Results 04/01/24 07:01 04/01/24 07:01 Microbiology Results Microbiology 03/31/24 07:43 Blood - Left Antecubital Blood Culture - Preliminary No Growth 1 Day 03/31/24 07:50 Blood - Right Antecubital Blood Culture - Preliminary No Growth 1 Day Meds Allergies and Active Meds Allergies adhesive tape (Tape) Allergy (Verified 03/23/24 13:43) Rash Active Meds: Active Medications Generic Name Dose Route Start Last Admin Trade Name Freq PRN Reason Stop Dose Admin Acetaminophen 650 mg 03/31/24 14:48 03/31/24 21:39 Acetaminophen 325 Mg Tablet PO 03/31/25 14:47 650 mg Q12HR PRN Administration Pain Albuterol 1 puff 03/31/24 18:00 Albuterol Hfa 60 Puff/8 Gram Inhaler INHALATION 03/31/25 17:59 Q6HR PRN Shortness Of Breath Amlodipine Besylate 10 mg 04/01/24 09:00 04/01/24 08:33 Amlodipine 10 Mg Tablet PO 04/01/25 08:59 10 mg DAILY JEFFREY Administration Aspirin 81 mg 04/01/24 09:00 04/01/24 08:33 Aspirin 81 Mg Tablet.Dr PO 04/01/25 08:59 81 mg DAILY JEFFREY Administration Baclofen 10 mg 03/31/24 21:00 04/01/24 08:32 Baclofen 10 Mg Tablet PO 03/31/25 20:59 10 mg BID JEFFREY Administration Buspirone HCl 10 mg 03/31/24 21:00 04/01/24 08:32 Buspirone 10 Mg Tablet PO 03/31/25 20:59 10 mg BID JEFFREY Administration Calcium Carbonate 600 mg 04/01/24 09:00 04/01/24 08:33 Calcium Carbonate 500 Mg Tablet PO 04/01/25 08:59 Not Given DAILY JEFFREY Docusate Sodium 100 mg 03/31/24 21:00 04/01/24 08:33 Docusate 100 Mg Capsule PO 03/31/25 20:59 100 mg BID JEFFREY Administration Enoxaparin Sodium 40 mg 04/01/24 10:00 Enoxaparin 40 Mg/0.4 Ml Syringe SUBCUT 04/01/25 09:59 DAILY@10 JEFFREY Gabapentin 600 mg 03/31/24 21:30 04/01/24 08:32 Gabapentin 300 Mg Capsule PO 03/31/25 21:29 600 mg BID JEFFREY Administration Hydrocortisone 1 applic 03/31/24 20:40 04/01/24 05:44 Hydrocortisone 1% Cream 28 Gm Tube TOPICAL 03/31/25 20:39 1 applic TID PRN Administration Itching, pain Ceftriaxone Sodium 1 gm in 50 mls @ 100 mls/hr 04/01/24 11:00 Rocephin IV DAILY@1100 JEFFREY Melatonin 3 mg 03/31/24 12:15 03/31/24 21:40 Melatonin 3 Mg Tablet PO 03/31/25 12:14 3 mg QHS PRN Administration Insomnia Naproxen 250 mg 03/31/24 21:00 04/01/24 08:31 Naproxen 250 Mg Tablet PO 03/31/25 20:59 250 mg BID JEFFREY Administration Nortriptyline HCl 25 mg 03/31/24 22:00 03/31/24 21:40 Nortriptyline 25 Mg Capsule PO 03/31/25 21:59 25 mg QHS JEFFREY Administration Ondansetron HCl 4 mg 03/31/24 12:15 Ondansetron 4 Mg/2 Ml Vial IV-PUSH 03/31/25 12:14 Q8H PRN Nausea And Vomiting Oxycodone/Acetaminophen 1 tab 04/01/24 07:44 04/01/24 08:31 Oxycodone/Acetaminophen 5-325 Mg Tablet PO 1 tab TID PRN Administration pain Pantoprazole Sodium 40 mg 04/01/24 09:00 04/01/24 08:32 Pantoprazole 40 Mg Tablet.Dr PO 04/01/25 08:59 40 mg DAILY JEFFREY Administration Polyethylene Glycol 17 gm 03/31/24 12:33 Polyethylene Glycol 3350 17 Gm Powd.Pack PO 03/31/25 12:32 BID PRN constipation Sennosides 8.6 mg 03/31/24 12:15 03/31/24 21:40 Sennosides 8.6 Mg Tablet PO 03/31/25 12:14 8.6 mg BID PRN Administration Constipation Sodium Chloride 0 ml 03/31/24 07:18 03/31/24 09:15 Sodium Chloride 0.9 % 10 Ml Syringe IV-PUSH 03/31/25 07:17 10 ml PRN PRN Administration Flush Tobramycin/Dexamethasone 1 drops 03/31/24 18:00 04/01/24 05:44 Tobramycin/Dex Op Susp 50 Drops/2.5 Ml Bottle EYE-BOTH 03/31/25 17:59 1 drops Q6HR JEFFREY Administration Tolterodine Tartrate 2 mg 04/01/24 06:30 04/01/24 05:44 Tolterodine 2 Mg Cap.Er.24h PO 04/01/25 06:29 2 mg DAILY@0630 JEFFREY Administration Vitamin D 50 mcg 04/01/24 09:00 04/01/24 08:34 Cholecalciferol 25 Mcg (1,000 Units) Tablet PO 04/01/25 08:59 Not Given DAILY JEFFREY A&P - Hospitalist Assessment/Plan (1) Acute metabolic encephalopathy: Plan: Resolved-present on admission likely secondary to UTI with urinary retention Patient had failed outpatient Keflex Continue with inpatient level of care Vitamin B12, folate, vitamin D and TSH level are within normal limit Continue with ceftriaxone Follow-up urine and blood culture results Blood culture have been negative x 1 day (2) CKD (chronic kidney disease), stage III: Plan: Asking patient to increase oral intake Creatinine around 0.92 with normal BUN around 13 Patient had acute urinary retention on admission Will do bowel regimen and voiding trial afterwards Communication order in for nurse to remove the Nath catheter after patient has no movement She is unable to void on her own, will need replacement of Nath catheter (3) Dehydration: Plan: Encouraging oral intake Status post 1 L fluid Volume status has improved significantly (4) Hypertension: Plan: Continue with amlodipine (5) Chronic back pain greater than 3 months duration: Plan: PT OT evaluation Fall precaution Can resume her chronic pain medications (6) 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 All efforts were made tominimize errors, if they are is due to assistant designer. Rosendo Law MD Hospitalist Documented By: Rosendo Law MD 04/01/24 0951 Signed By: <Electronically signed by Rosendo Law MD> 04/01/24 0970 [facility] Work Phone: 1(869) 864-803111-19-2024 [place] [address] Hospitalist Progress Note Signed Patient: Aaron Lewis MR#: [id number] : 1945 Acct:[id number] Age/Sex: 79 / F Adm Date: 4 Loc: Room: [address] [place] [address] Type: ADM IN Attending Dr: Rosendo Law MD Copies to: ~ Date of Service: 04/01/2024 Subjective Subjective Narrative: Patient feels constipated. Talked about bowel regimen and working with therapy. When she has a bowel movement will discontinue Nath catheter and try voiding catheter. Explained that if she is unableto void on her own she will need catheter placement again and follow-up with urology. definitely a lot less confused and alert. On room air. Spoke with primary nurse as well Exam Physical Exam Vital Signs: Temp Pulse Resp BP Pulse Ox O2 Del Method O2 Flow Rate 36.3 C L 98 18 127/81 95 Room Air 2 04/01/24 08:12 04/01/24 08:12 04/01/24 08:12 04/01/24 08:12 04/01/24 08:12 04/01/24 09:11 04/01/24 00:05 Narrative: General: Alert, awake and not in any distress HEENT: PERRLA, and intact and normocephalic. Dry mucous membrane Neck: Normal to inspection Lungs: Clear to auscultation, work of breathing within normal limit Cardiac: Regular rate and rhythm Abdomen: Soft, nontender, positive bowel sounds Genitourinary: Nath catheter in place draining marine urine Skin: Intact Hematology: No petechiae or excessive ecchymosis Musculoskeletal: Without significant trauma Neurological: Alert awake oriented x 3, alert where she is at, no focal deficit Psych: No suicidal ideation or homicidal ideation Objective Lab Results 04/01/24 07:01 04/01/24 07:01 Microbiology Results Microbiology 03/31/24 07:43 Blood - Left Antecubital Blood Culture - Preliminary No Growth 1 Day 03/31/24 07:50 Blood - Right Antecubital Blood Culture - Preliminary No Growth 1 Day Meds Allergies and Active Meds Allergies adhesive tape (Tape) Allergy (Verified 03/23/24 13:43) Rash Active Meds: Active Medications Generic Name Dose Route Start Last Admin Trade Name Fredq PRN Reason Stop Dose Admin Acetaminophen 650 mg 03/31/24 14:48 03/31/24 21:39 Acetaminophen 325 Mg Tablet PO 03/31/25 14:47 650 mg Q12HR PRN Administration Pain Albuterol 1 puff 03/31/24 18:00 Albuterol Hfa 60 Puff/8 Gram Inhaler INHALATION 03/31/25 17:59 Q6HR PRN Shortness Of Breath Amlodipine Besylate 10 mg 04/01/24 09:00 04/01/24 08:33 Amlodipine 10 Mg Tablet PO 04/01/25 08:59 10 mg DAILY JEFFREY Administration Aspirin 81 mg 04/01/24 09:00 04/01/24 08:33 Aspirin 81 Mg Tablet.Dr PO 04/01/25 08:59 81 mg DAILY JEFFREY Administration Baclofen 10 mg 03/31/24 21:00 11/19/24 08:32 Baclofen 10 Mg Tablet PO 03/31/25 20:59 10 mg BID [facility] Administration Buspirone HCl 10 mg 03/31/24 21:00 04/01/24 08:32 Buspirone 10 Mg Tablet PO 03/31/25 20:59 10 mg BID [facility] Administration Calcium Carbonate 600 mg 04/01/24 09:00 04/01/24 08:33 Calcium Carbonate 500 Mg Tablet PO 04/01/25 08:59 Not Given DAILY [facility] [facility] Docusate Sodium 100 mg 03/31/24 21:00 04/01/24 08:33 Docusate 100 Mg Capsule PO 03/31/25 20:59 100 mg BID [facility] Administration Enoxaparin Sodium 40 mg 04/01/24 10:00 Enoxaparin 40 Mg/0.4 Ml Syringe SUBCUT 04/01/25 09:59 DAILY@10 [facility] Gabapentin 600 mg 03/31/24 21:30 04/01/24 08:32 Gabapentin 300 Mg Capsule PO 03/31/25 21:29 600 mg BID [facility] Administration Hydrocortisone 1 applic 03/31/24 20:40 04/01/24 05:44 Hydrocortisone 1% Cream 28 Gm Tube TOPICAL 03/31/25 20:39 1 applic TID PRN Administration Itching, pain Ceftriaxone Sodium 1 gm in 50 mls @ 100 mls/hr 04/01/24 11:00 Rocephin IV DAILY@1100 [facility] Melatonin 3 mg 03/31/24 12:15 03/31/24 21:40 Melatonin 3 Mg Tablet PO 03/31/25 12:14 3 mg QHS PRN Administration Insomnia Naproxen 250 mg 03/31/24 21:00 04/01/24 08:31 Naproxen 250 Mg Tablet PO 03/31/25 20:59 250 mg BID [facility] Administration Nortriptyline HCl 25 mg 03/31/24 22:00 03/31/24 21:40 Nortriptyline 25 Mg Capsule PO 03/31/25 21:59 25 mg QHS [facility] Administration Ondansetron HCl 4 mg 03/31/24 12:15 Ondansetron 4 Mg/2 Ml Vial IV-PUSH 03/31/25 12:14 Q8H PRN Nausea And Vomiting Oxycodone/Acetaminophen 1 tab 04/01/24 07:44 04/01/24 08:31 Oxycodone/Acetaminophen 5-325 Mg Tablet PO 1 tab TID PRN Administration pain Pantoprazole Sodium 40 mg 04/01/24 09:00 04/01/24 08:32 Pantoprazole 40 Mg Tablet.Dr PO 04/01/25 08:59 40 mg DAILY [facility] Administration Polyethylene Glycol 17 gm 03/31/24 12:33 Polyethylene Glycol 3350 17 Gm Powd.Pack PO 03/31/25 12:32 BID PRN constipation Sennosides 8.6 mg 03/31/24 12:15 03/31/24 21:40 Sennosides 8.6 Mg Tablet PO 03/31/25 12:14 8.6 mg BID PRN Administration Constipation Sodium Chloride 0 ml 03/31/24 07:18 03/31/24 09:15 Sodium Chloride 0.9 % 10 Ml Syringe IV-PUSH 03/31/25 07:17 10 ml PRN PRN Administration Flush Tobramycin/Dexamethasone 1 drops 03/31/24 18:00 04/01/24 05:44 Tobramycin/Dex Op Susp 50 Drops/2.5 Ml Bottle EYE-BOTH 03/31/25 17:59 1 drops Q6HR [facility] Administration Tolterodine Tartrate 2 mg 04/01/24 06:30 04/01/24 05:44 Tolterodine 2 Mg Cap.Er.24h PO 04/01/25 06:29 2 mg DAILY@0630 [facility] Administration Vitamin D 50 mcg 04/01/24 09:00 04/01/24 08:34 Cholecalciferol 25 Mcg (1,000 Units) Tablet PO 04/01/25 08:59 Not Given DAILY [facility] A&P - Hospitalist Assessment/Plan (1) Acute metabolic encephalopathy: Plan: Resolved-present on admission likely secondary to UTI with urinary retention Patient had failed outpatient Keflex Continue with inpatient level of care Vitamin B12, folate, vitamin D and TSH level are within normal limit Continue with ceftriaxone Follow-up urine and blood culture results Blood culture have been negative x 1 day (2) CKD (chronic kidney disease), stage III: Plan: Asking patient to increase oral intake Creatinine around 0.92 with normal BUN around 13 Patient had acute urinary retention on admission Will do bowel regimen and voiding trial afterwards Communication order in for nurse to remove the Nath catheter after patient has no movement She is unable to void on her own, will need replacement of Nath catheter (3) Dehydration: Plan: Encouraging oral intake Status post 1 L fluid Volume status has improved significantly (4) Hypertension: Plan: Continue with amlodipine (5) Chronic back pain greater than 3 months duration: Plan: PT OT evaluation Fall precaution Can resume her chronic pain medications (6) 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 All efforts were made tominimize errors, if they are is due to assistant designer. Rosendo Law MD Hospitalist Documented By: Rosendo Law MD 04/01/24 0951 Signed By: 04/01/24 0955 [facility]11-18-2024 History and physical note Author Rosendo Law [facility] Note Date/Time March 31, 2024 12:29pm [facility] [address] [place] [address] Hospitalist H&P Signed Patient: Aaron Lewis MR#: [id number] : 1945 Acct:[id number] Age/Sex: 79 / F Adm Date: 4 Loc: Room: [address] [place] [address] Type: ADM IN Attending Dr: Rosendo Law MD Copies to: MD Rosendo Wray MD~ HPI DATE OF EXAMINATION: 03/31/24 HISTORY OF PRESENT ILLNESS: 79-year-old female with past medical history of recent zoster of the eye and meningitis requiring IV antibiotics and [facility] admission, hypertension, obesity, vitamin D deficiency, COPD, CKD, osteoporosis, recent diagnosis of UTI presented to emergency department for not acting right. Patient was recently here about a week ago and was diagnosed with a UTI and discharged on Keflex. Patient was acting different and confused her son spent the night there and she has been quite confused throughout the night more confused and complaining aboutsome lower abdominal pain. Here in the emergency department she was worked up and was found to have urinary retention and Nath catheter was placed draining 875. Patient was started on ceftriaxone and referred to hospitalist service forfurther management. [facility] Medical History (Updated 03/31/24 @ 12:27 by Rosendo Law MD) Hypertension Problem List clean-up per request of Phys. EHR Cmte Osteoporosis Primary hyperparathyroidism Landaverde's neuroma Hyperparathyroidism Hypercalcemia Essential (primary) hypertension COPD, moderate CKD (chronic kidney disease), stage III Anxiety Osteoporosis Problem List clean-up per request of Phys. EHR Cmte Smoker Problem List clean-up per request of Phys. EHR Cmte Uterine cancer Problem List clean-up per request of Phys. EHR Cmte GERD (gastroesophageal reflux disease) Problem List clean-up per request of Phys. EHR Cmte Ovarian cancer right Problem List clean-up per request of Phys. EHR [facility] Surgical History H/O: hysterectomy History of lumbar laminectomy History of lumbar fusion Problem List clean-up per request of Phys. EHR Cmte H/O left breast biopsy Problem List clean-up per request of Phys. EHR [facility] H/O hysterectomy with oophorectomy Problem List clean-up per request of Phys. EHR [facility] H/O oophorectomy right Problem List clean-up per request of Phys. EHR [facility] Family History Sister Brittle bone disease Daughter Fibromyalgia Legacy FamHx Relation: Daughter(s) Father History of stroke Legacy FamHx Problem: Diagnosed with Stroke Family/Other Legacy FamHx Problem: 1 sister :1 grandson over dose Mother Cancer Legacy FamHx Problem: Diagnosed with Cancer Son Hypertension Sister Diabetes Legacy FamHx Problem: 1 sister Social History Smoking Status: Never smoker Tobacco Type: cigarettes Substance Use Type: None Meds Medications and Allergies Allergies adhesive tape (Tape) Allergy (Verified 03/23/24 13:43) Rash Home Medications nortriptyline 25 mg capsule 25 mg PO QHS 30 days #30 caps 05/04/20 [Rx Confirmed 03/31/24] omeprazole 40 mg capsule,delayed release See Rx Instructions .Route .COMPLEX #90caps 02/11/24 [Rx Confirmed 03/31/24] acetaminophen 650 mg tablet,extended release (Pain Relief (acetaminophen)) 650 mg PO Q12HR 03/12/24 [History Confirmed 03/31/24] albuterol sulfate 90 mcg/actuation aerosol inhaler 1 inh inhalation Q6HR 03/12/24 [History Confirmed 03/31/24] aspirin 81 mg tablet,delayed release 81 mg PO DAILY 03/12/24 [History Confirmed 03/31/24] baclofen 5 mg tablet 10 mg PO TID 03/12/24 [History Confirmed 03/31/24] calcium carbonate 600 mg PO DAILY 03/12/24 [History Confirmed 03/31/24] cholecalciferol (vitamin D3) 50 mcg (2,000 unit) capsule 50 mcg PO DAILY 03/12/24 [History Confirmed 03/31/24] glucosamine sulfate 500 mg-chondroitin 400 mg-msm 200 mg tablet 1 tab PO BID 03/12/24 [History Confirmed 03/31/24] oxycodone-acetaminophen 5 mg-325 mg tablet 1 tab PO TID PRN pain 03/12/24 [History Confirmed 03/31/24] trospium 20 mg tablet 20 mg PO BID 03/12/24 [History Confirmed 03/31/24] cephalexin 500 mg capsule 500 mg PO BID #14 caps 03/23/24 [Rx Confirmed 03/31/24] polyethylene glycol 3350 17 gram/dose oral powder (Miralax) 17 g PO BID PRN constipation #238 grams 03/23/24 [Rx Confirmed 03/31/24] amlodipine 5 mg tablet 10 mg PO DAILY 03/31/24 [History Confirmed 03/31/24] buspirone 10 mg tablet 10 mg PO TID 03/31/24 [History Confirmed 03/31/24] gabapentin 300 mg capsule 600 mg PO TID 03/31/24 [History Confirmed 03/31/24] meloxicam 15 mg tablet 7.5 mg PO DAILY 03/31/24 [History Confirmed 03/31/24] tobramycin 0.3 %-dexamethasone 0.1 % eye drops,suspension 1 drp Eye-Both Q6H 03/31/24 [History Confirmed 03/31/24] Exam Physical Exam Vital Signs: Temp Pulse Resp BP Pulse Ox O2 Del Method 36.9 C 94 16 141/73 H 98 Room Air 03/31/24 07:19 03/31/24 10:50 03/31/24 10:50 03/31/24 10:50 03/31/24 10:50 03/31/24 10:50 Narrative: General: Alert, confused, not in acute distress HEENT: PERRLA, and intact and normocephalic. Dry mucous membrane Neck: Normal to inspection Lungs: Clear to auscultation, work of breathing within normal limit Cardiac: Regular rate and rhythm Abdomen: Soft, nontender, positive bowel sounds Genitourinary: Nath catheter in place draining marine urine Skin: Intact Hematology: No petechiae or excessive ecchymosis Musculoskeletal: Without significant trauma Neurological: Alert awake oriented x 2 and going off on a tangent, no focal deficit, cranial nerves grossly intact Psych: No suicidal ideation or homicidal ideation Results - Hospitalist H&P Lab Results Labs: Laboratory Last Values Corrected WBC 6.8 X10E3/uL (3.8-11.6) 03/31/24 07:57 Uncorrected WBC Count 6.8 x10E3/uL (3.8-11.6) 03/31/24 07:57 RBC 4.36 x10E6/uL (3.60-5.00) 03/31/24 07:57 Hgb 13.3 g/dL (11.8-15.4) 03/31/24 07:57 Hct 40.7 % (34.0-46.4) 03/31/24 07:57 MCV 93.5 fl (80-100) 03/31/24 07:57 MCH 30.4 pg (24.7-34.3) 03/31/24 07:57 MCHC 32.6 g/dL (32.0-35.0) 03/31/24 07:57 RDW 18.1 % (11.9-15.3) H 03/31/24 07:57 Plt Count 253 x10E3/uL (150-450) 03/31/24 07:57 MPV 9.6 fl (6.3-10.7) 03/31/24 07:57 Neut % (Auto) 68.2 % (.) 03/31/24 07:57 Lymph % (Auto) 19.2 % (.) 03/31/24 07:57 Price % (Auto) 8.9 % (.) 03/31/24 07:57 Eos % (Auto) 2.6 % (.) 03/31/24 07:57 Baso % (Auto) 1.1 % (.) 03/31/24 07:57 Nucleat RBC Rel Count 0.1 /100 WBC (0-0.5) 03/31/24 07:57 Neut # (Auto) 4.7 x10E3/uL (1.8-7.7) 03/31/24 07:57 Lymph # (Auto) 1.3 x10E3/uL (1.00-4.8) 03/31/24 07:57 Price # (Auto) 0.6 x10E3/uL (0.0-0.8) 03/31/24 07:57 Eos # (Auto) 0.2 x10E3/uL (0.0-0.45) 03/31/24 07:57 Baso # (Auto) 0.1 x10E3/uL (0.0-0.2) 03/31/24 07:57 Monocyte Dist Width 19.18 % (0.00-20.00) 03/31/24 07:57 PT 10.9 Seconds (9.0-12.9) 03/31/24 07:57 INR 0.9 03/31/24 07:57 APTT 28.6 Seconds (25.1-36.5) 03/31/24 07:57 PHA Creatinine Clear 43.86 03/31/24 07:57 Sodium 144 mmol/L (136-145) 03/31/24 07:57 Potassium 3.8 mmol/L (3.5-5.1) 03/31/24 07:57 Chloride 108 mmol/L (98-107) H 03/31/24 07:57 Carbon Dioxide 25.5 mmol/L (21.0-31.0) 03/31/24 07:57 Anion Gap 14.3 mEq/L (6.0-15.0) 03/31/24 07:57 BUN 19 mg/dL (7-25) 03/31/24 07:57 Creatinine 1.17 mg/dL (0.60-1.20) 03/31/24 07:57 Est GFR (CKD-EPI) 48.060 mL/Min 03/31/24 07:57 Glucose 93 mg/dL (70-100) 03/31/24 07:57 POC Glucose 91 mg/dl 03/31/24 08:20 Lactic Acid 1.2 mmol/L (0.5-2.2) 03/31/24 07:57 Calcium 9.7 mg/dL (8.6-10.3) 03/31/24 07:57 Total Bilirubin 0.4 mg/dl (0.3-1.0) 03/31/24 07:57 Direct Bilirubin 0.10 mg/dL (0.03-0.18) 03/31/24 07:57 Indirect Bilirubin 0.3 mg/dL 03/31/24 07:57 AST 14 U/L (13-39) 03/31/24 07:57 ALT 17 U/L (7-52) 03/31/24 07:57 Alkaline Phosphatase 57 U/L (34-104) 03/31/24 07:57 Total Creatine Kinase 23 U/L (30-223) L 03/31/24 07:57 Troponin I High Sens 9.0 pg/mL (0.0-15.0) 03/31/24 07:57 Total Protein 5.7 gm/dL (6.4-8.9) L 03/31/24 07:57 Albumin 3.5 gm/dL (3.5-5.7) 03/31/24 07:57 Globulin 2.2 gm/dL 03/31/24 07:57 Albumin/Globulin Ratio 1.6 03/31/24 07:57 Lipase 20.0 U/L (11.0-82.0) 03/31/24 07:57 TSH 3rd Generation 0.51 uIU/mL (0.45-5.33) 03/31/24 07:57 Urine Color Light-yellow (Yellow) 03/31/24 07:19 Urine Appearance Clear (Clear) 03/31/24 07:19 Urine pH 6.0 (5.0-9.0) 03/31/24 07:19 Ur Specific Milburn 1.011 (1.001-1.030) 03/31/24 07:19 Urine Protein Negative mg/dL (Negative) 03/31/24 07:19 Urine Glucose (UA) Normal mg/dL (Normal) 03/31/24 07:19 Urine Ketones Negative (Negative) 03/31/24 07:19 Urine Occult Blood Negative (Negative) 03/31/24 07:19 Urine Nitrite Negative (Negative) 03/31/24 07:19 Urine Bilirubin Negative (Negative) 03/31/24 07:19 Urine Urobilinogen Normal mg/dL (Normal) 03/31/24 07:19 Ur Leukocyte Esterase 2+ (Negative) H 03/31/24 07:19 Urine RBC 1-2 /HPF (0-4) 03/31/24 07:19 Urine WBC 5-9 /HPF (0-4) H 03/31/24 07:19 Ur Squamous Epith Cells 1-2 /HPF (0-2) 03/31/24 07:19 Urine Bacteria None seen /HPF (None Seen) 03/31/24 07:19 Hyaline Casts 0-8 /LPF (0-8) 03/31/24 07:19 Urine Mucus Rare /LPF 03/31/24 07:19 Assessment & Plan Assessment/Plan (1) Acute metabolic encephalopathy: Plan: Likely secondary to UTI with urinary retention Patient failed outpatient Keflex Admitted to inpatient level of care as anticipate that she will require greater than 2 midnight stay For other causes of confusion: Check for vitamin B12, folate, vitamin D level, TSH Continue with ceftriaxone Follow-up urine and blood culture results (2) CKD (chronic kidney disease), stage III: Plan: Poor oral intake IV fluid with 1 L saline bolus Repeat labs for tomorrow ordered (3) Dehydration: Plan: Encouraging oral intake 1 L fluid bolus ordered (4) Hypertension: Plan: Continue with amlodipine (5) Chronic back pain greater than 3 months duration: Plan: PT OT evaluation Fall precaution (6) 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: Plan: Completed the course CT scan negative If no improvement, will consult neurology at that point Plan Plan discussed with patient and daughter at bedside in ED bed 1 High level of MDM based on above issue and discussing plan This note is created using voice recognition software. All efforts were made tominimize errors, if they are is due to assistant designer. Rosendo Law MD Hospitalist IP vs OBS Justification Based on differential dx, clinical care plan, and risk of adverse events, if untreated, in my clinical judgement this patient requires an acute care setting as: INPATIENT because of an expectation of an over 2 midnight stay. Estimated length of stay (# of days): 3 Documented By: Rosendo Law MD 03/31/24 1225 Signed By: <Electronically signed by Rosendo Law MD> 03/31/24 1225 [facility] Work Phone: 1(877) 622-138811-18-2024 History [place] [address] Hospitalist H&P Signed Patient: Aaron Lewis MR#: [id number] : 1945 Acct:[id number] Age/Sex: 79 / F Adm Date: 4 Loc: Room: [address] [place] [address] Type: ADM IN Attending Dr: Rosendo Law MD Copies to: MD Rosendo Wray MD~ HPI DATE OF EXAMINATION: 03/31/24 HISTORY OF PRESENT ILLNESS: 79-year-old female with past medical history of recent zoster of the eye and meningitis requiring IV antibiotics and [facility] admission, hypertension, obesity, vitamin D deficiency, COPD, CKD, osteoporosis, recent diagnosis of UTI presented to emergency department for not acting right. Patient wasrecently here about a week ago and was diagnosed with a UTI and discharged on Keflex. Patient was acting different and confused her son spent the night there and she has been quite confused throughout the night more confused and complaining aboutsome lower abdominal pain. Here in the emergency department she was worked up and was found to have urinary retention and Nath catheter was placed draining 875. Patient was started on ceftriaxone and referred to hospitalist service forfurther management. [facility] Medical History (Updated 03/31/24 @ 12:27 by Rosendo Law MD) Hypertension Problem List clean-up per request of Phys. EHR Cmte Osteoporosis Primary hyperparathyroidism Landaverde's neuroma Hyperparathyroidism Hypercalcemia Essential (primary) hypertension COPD, moderate CKD (chronic kidney disease), stage III Anxiety Osteoporosis Problem List clean-up per request of Phys. EHR Cmte Smoker Problem List clean-up per request of Phys. EHR Cmte Uterine cancer Problem List clean-up per request of Phys. EHR Cmte GERD (gastroesophageal reflux disease) Problem List clean-up per request of Phys. EHR Cmte Ovarian cancer right Problem List clean-up per request of Phys. EHR Cmte Surgical History H/O: hysterectomy History of lumbar laminectomy History of lumbar fusion Problem List clean-up per request of Phys. EHR Cmte H/O left breast biopsy Problem List clean-up per request of Phys. EHR Cmte H/O hysterectomy with oophorectomy Problem List clean-up per request of Phys. EHR Cmte H/O oophorectomy right Problem List clean-up per request of Phys. EHR Cmte Family History Sister Brittle bone disease Daughter Fibromyalgia Legacy FamHx Relation: Daughter(s) Father History of stroke Legacy FamHx Problem: Diagnosed with Stroke Family/Other Legacy FamHx Problem: 1 sister :1 grandson over dose Mother Cancer Legacy FamHx Problem: Diagnosed with Cancer Son Hypertension Sister Diabetes Legacy FamHx Problem: 1 sister Social History Smoking Status: Never smoker Tobacco Type: cigarettes Substance Use Type: None Meds Medications and Allergies Allergies adhesive tape (Tape) Allergy (Verified 03/23/24 13:43) Rash Home Medications nortriptyline 25 mg capsule 25 mg PO QHS 30 days #30 caps 05/04/20 [Rx Confirmed 03/31/24] omeprazole 40 mg capsule,delayed release See Rx Instructions .Route .COMPLEX #90caps 02/11/24 [Rx Confirmed 03/31/24] acetaminophen 650 mg tablet,extended release (Pain Relief (acetaminophen)) 650 mg PO Q12HR 03/12/24[History Confirmed 03/31/24] albuterol sulfate 90 mcg/actuation aerosol inhaler 1 inh inhalation Q6HR 03/12/24 [History Confirmed 03/31/24] aspirin 81 mg tablet,delayed release 81 mg PO DAILY 03/12/24 [History Confirmed 03/31/24] baclofen 5 mg tablet 10 mg PO TID 03/12/24 [History Confirmed 03/31/24] calcium carbonate 600 mg PO DAILY 03/12/24 [History Confirmed 03/31/24] cholecalciferol (vitamin D3) 50 mcg (2,000 unit) capsule 50 mcg PO DAILY 03/12/24 [History Confirmed 03/31/24] glucosamine sulfate 500 mg-chondroitin 400 mg-msm 200 mg tablet 1 tab PO BID 03/12/24 [History Confirmed 03/31/24] oxycodone-acetaminophen 5 mg-325 mg tablet 1 tab PO TID PRN pain 03/12/24 [History Confirmed 03/31/24] trospium 20 mg tablet 20 mg PO BID 03/12/24 [History Confirmed 03/31/24] cephalexin 500 mg capsule 500 mg PO BID #14 caps 03/23/24 [Rx Confirmed 03/31/24] polyethylene glycol 3350 17 gram/dose oral powder (Miralax) 17 g PO BID PRN constipation #238 grams03/23/24 [Rx Confirmed 03/31/24] amlodipine 5 mg tablet 10 mg PO DAILY 03/31/24 [History Confirmed 03/31/24] buspirone 10 mg tablet 10 mg PO TID 03/31/24 [History Confirmed 03/31/24] gabapentin 300 mg capsule 600 mg PO TID 03/31/24 [History Confirmed 03/31/24] meloxicam 15 mg tablet 7.5 mg PO DAILY 03/31/24 [History Confirmed 03/31/24] tobramycin 0.3 %-dexamethasone 0.1 % eye drops,suspension 1 drp Eye-Both Q6H 03/31/24 [History Confirmed 03/31/24] Exam Physical Exam Vital Signs: Temp Pulse Resp BP Pulse Ox O2 Del Method 36.9 C 94 16 141/73 H 98 Room Air 03/31/24 07:19 03/31/24 10:50 03/31/24 10:50 03/31/24 10:50 03/31/24 10:50 03/31/24 10:50 Narrative: General: Alert, confused, not in acute distress HEENT: PERRLA, and intact and normocephalic. Dry mucous membrane Neck: Normal to inspection Lungs: Clear to auscultation, work of breathing within normal limit Cardiac: Regular rate and rhythm Abdomen: Soft, nontender, positive bowel sounds Genitourinary: Nath catheter in place draining marine urine Skin: Intact Hematology: No petechiae or excessive ecchymosis Musculoskeletal: Without significant trauma Neurological: Alert awake oriented x 2 and going off on a tangent, no focal deficit, cranial nervesgrossly intact Psych: No suicidal ideation or homicidal ideation Results - Hospitalist H&P Lab Results Labs: Laboratory Last Values Corrected WBC 6.8 X10E3/uL (3.8-11.6) 03/31/24 07:57 Uncorrected WBC Count 6.8 x10E3/uL (3.8-11.6) 03/31/24 07:57 RBC 4.36 x10E6/uL (3.60-5.00) 03/31/24 07:57 Hgb 13.3 g/dL (11.8-15.4) 03/31/24 07:57 Hct 40.7 % (34.0-46.4) 03/31/24 07:57 MCV 93.5 fl (80-100) 03/31/24 07:57 MCH 30.4 pg (24.7-34.3) 03/31/24 07:57 MCHC 32.6 g/dL (32.0-35.0) 03/31/24 07:57 RDW 18.1 % (11.9-15.3) H 03/31/24 07:57 Plt Count 253 x10E3/uL (150-450) 03/31/24 07:57 MPV 9.6 fl (6.3-10.7) 03/31/24 07:57 Neut % (Auto) 68.2 % (.) 03/31/24 07:57 Lymph % (Auto) 19.2 % (.) 03/31/24 07:57 Price % (Auto) 8.9 % (.) 03/31/24 07:57 Eos % (Auto) 2.6 % (.) 03/31/24 07:57 Baso % (Auto) 1.1 % (.) 03/31/24 07:57 Nucleat RBC Rel Count 0.1 /100 WBC (0-0.5) 03/31/24 07:57 Neut # (Auto) 4.7 x10E3/uL (1.8-7.7) 03/31/24 07:57 Lymph # (Auto) 1.3 x10E3/uL (1.00-4.8) 03/31/24 07:57 Price # (Auto) 0.6 x10E3/uL (0.0-0.8) 03/31/24 07:57 Eos # (Auto) 0.2 x10E3/uL (0.0-0.45) 03/31/24 07:57 Baso # (Auto) 0.1 x10E3/uL (0.0-0.2) 03/31/24 07:57 Monocyte Dist Width 19.18 % (0.00-20.00) 03/31/24 07:57 PT 10.9 Seconds (9.0-12.9) 03/31/24 07:57 INR 0.9 03/31/24 07:57 APTT 28.6 Seconds (25.1-36.5) 03/31/24 07:57 PHA Creatinine Clear 43.86 03/31/24 07:57 Sodium 144 mmol/L (136-145) 03/31/24 07:57 Potassium 3.8 mmol/L (3.5-5.1) 03/31/24 07:57 Chloride 108 mmol/L (98-107) H 03/31/24 07:57 Carbon Dioxide 25.5 mmol/L (21.0-31.0) 03/31/24 07:57 Anion Gap 14.3 mEq/L (6.0-15.0) 03/31/24 07:57 BUN 19 mg/dL (7-25) 03/31/24 07:57 Creatinine 1.17 mg/dL (0.60-1.20) 03/31/24 07:57 Est GFR (CKD-EPI) 48.060 mL/Min 03/31/24 07:57 Glucose 93 mg/dL (70-100) 03/31/24 07:57 POC Glucose 91 mg/dl 03/31/24 08:20 Lactic Acid 1.2 mmol/L (0.5-2.2) 03/31/24 07:57 Calcium 9.7 mg/dL (8.6-10.3) 03/31/24 07:57 Total Bilirubin 0.4 mg/dl (0.3-1.0) 03/31/24 07:57 Direct Bilirubin 0.10 mg/dL (0.03-0.18) 03/31/24 07:57 Indirect Bilirubin 0.3 mg/dL 03/31/24 07:57 AST 14 U/L (13-39) 03/31/24 07:57 ALT 17 U/L (7-52) 03/31/24 07:57 Alkaline Phosphatase 57 U/L (34-104) 03/31/24 07:57 Total Creatine Kinase 23 U/L (30-223) L 03/31/24 07:57 Troponin I High Sens 9.0 pg/mL (0.0-15.0) 03/31/24 07:57 Total Protein 5.7 gm/dL (6.4-8.9) L 03/31/24 07:57 Albumin 3.5 gm/dL (3.5-5.7) 03/31/24 07:57 Globulin 2.2 gm/dL 03/31/24 07:57 Albumin/Globulin Ratio 1.6 03/31/24 07:57 Lipase 20.0 U/L (11.0-82.0) 03/31/24 07:57 TSH 3rd Generation 0.51 uIU/mL (0.45-5.33) 03/31/24 07:57 Urine Color Light-yellow (Yellow) 03/31/24 07:19 Urine Appearance Clear (Clear) 03/31/24 07:19 Urine pH 6.0 (5.0-9.0) 03/31/24 07:19 Ur Specific Mil[place] 1.011 (1.001-1.030) 03/31/24 07:19 Urine Protein Negative mg/dL (Negative) 03/31/24 07:19 Urine Glucose (UA) Normal mg/dL (Normal) 03/31/24 07:19 Urine Ketones Negative (Negative) 03/31/24 07:19 Urine Occult Blood Negative (Negative) 03/31/24 07:19 Urine Nitrite Negative (Negative) 03/31/24 07:19 Urine Bilirubin Negative (Negative) 03/31/24 07:19 Urine Urobilinogen Normal mg/dL (Normal) 03/31/24 07:19 Ur Leukocyte Esterase 2+ (Negative) H 03/31/24 07:19 Urine RBC 1-2 /HPF (0-4) 03/31/24 07:19 Urine WBC 5-9 /HPF (0-4) H 03/31/24 07:19 Ur Squamous Epith Cells 1-2 /HPF (0-2) 03/31/24 07:19 Urine Bacteria None seen /HPF (None Seen) 03/31/24 07:19 Hyaline Casts 0-8 /LPF (0-8) 03/31/24 07:19 Urine Mucus Rare /LPF 03/31/24 07:19 Assessment & Plan Assessment/Plan (1) Acute metabolic encephalopathy: Plan: Likely secondary to UTI with urinary retention Patient failed outpatient Keflex Admitted to inpatient level of care as anticipate that she will require greater than 2 midnight stay For other causes of confusion: Check for vitamin B12, folate, vitamin D level, TSH Continue with ceftriaxone Follow-up urine and blood culture results (2) CKD (chronic kidney disease), stage III: Plan: Poor oral intake IV fluid with 1 L saline bolus Repeat labs for tomorrow ordered (3) Dehydration: Plan: Encouraging oral intake 1 L fluid bolus ordered (4) Hypertension: Plan: Continue with amlodipine (5) Chronic back pain greater than 3 months duration: Plan: PT OT evaluation Fall precaution (6) 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: Plan: Completed the course CT scan negative If no improvement, will consult neurology at that point Plan Plan discussed with patient and daughter at bedside in ED bed 1 High level of MDM based on above issue and discussing plan This note is created using voice recognition software. All efforts were made tominimize errors, if they are is due to assistant designer. Rosendo Law MD Hospitalist IP vs OBS Justification Based on differential dx, clinical care plan, and risk of adverse events, if untreated, in my clinical judgement this patient requires an acute care setting as: INPATIENT because of an expectation ofan over 2 midnight stay. Estimated length of stay (# of days): 3 Documented By: Rosendo Law MD 03/31/245 Signed By: 03/31/24 1229 [facility]11-18-2024 Radiology Diagnostic study note [facility] [place] [address] CT Scan Report Signed Patient: Aaron Lewis MR#: [id number] : 1945 Acct:[id number] Age/Sex: 79 / F ADM Date: 4 Loc: ER Room: Type: [facility] ER Attending Dr: Copies to: Jarad Vargas DO~ Ordering Provider: Jarad Vargas DO Date of Service: 03/31/24 CT/CT abdomen pelvis w con: ams lower abd/back pain ([id number]) CT/CT head/brain wo con: ams Unenhanced head CT TECHNIQUE: Contiguous axial imaging of the head. The CT exam was performed usingone or more the following dose reduction techniques: Automated exposure control,adjustment of the MA and/or Kv according to patient size, or use of the iterative reconstruction technique. COMPARISON: 04/10/2020 HISTORY: Altered mental status VENTRICLES: Within normal limits ATROPHY: Similar diffuse atrophy BRAIN PARENCHYMA: Decreased density of the white matter is most consistent withchronic small vesseldisease. HEMORRHAGE: None HERNIATION: No mass effect or herniation INFARCTION: No recent vascular distribution infarction is seen. EXTRA-AXIAL FLUID COLLECTIONS None MIDBRAIN: Unremarkable BELEN: Unremarkable MEDULLA: Unremarkable SINUSES: Unremarkable ORBITS: Grossly unremarkable MASTOIDS: Unremarkable BONY STRUCTURES Intact ADDITIONAL FINDINGS: CT/CT head/brain wo con IMPRESSION: No acute findings. CT Abdomen and Pelvis withcontrast TECHNIQUE: Axial imaging with 2-D reconstruction.90 cc of Isovue-300. The CT exam was performed using one or more the following dose reduction techniques: Automated exposure control, adjustment of the MA and/or Kv according to patient size, or use of the iterative reconstruction technique. COMPARISON: None History: UTI. Low back pain. LIMITATIONS: Extensive streak artifact limits assessment of the kidneys. LOWER THORAX Unremarkable LIVER: Unremarkable GALLBLADDER: No gallbladder abnormality identified. BILE DUCTS: No dilatation SPLEEN: Unremarkable PANCREAS: Unremarkable ADRENAL GLANDS: Unremarkable KIDNEYS:Bilateral nephrolithiasis measuring up to 3 mm. No hydronephrosis. AORTA: No abdominal aortic aneurysm identified. RETROPERITONEUM: No significant retroperitoneal abnormalities identified. MESENTERY:Unremarkable SMALL BOWEL: The small bowel loops are nondistended. APPENDIX: The appendix is normal. COLON: Mild constipation URINARY BLADDER: Marked distention of urinary bladder. REPRODUCTIVE SYSTEM: The uterus is absent. PNEUMOPERITONEUM: None PERITONEAL FLUID:None BONY STRUCTURES: L3-4 fusion with decompression. Multilevel lower thoracic and lumbar degenerative change old pubic rami fractures. Scoliosis. ABDOMINAL WALL: Unremarkable IMPRESSION: Marked distention of the urinary bladder. May consider Nath decompression. Otherwise no acute findings. Hiatal hernia. Basilar atelectasis. Bilateral nephrolithiasis without obstructive uropathy. Impression dictated by: Emil Martin M.D.03/31/2024 10:02 AM Dictation Location: [place] [address] Transcribed By: [facility] 03/31/24 1002 Dictated By: Emil Martin DO 03/31/24 0952 Signed By: 03/31/[address] [place], [place] [address]1210-30-2024 Evaluation note* Diagnosis Onset Date Resolution Status Admit Date Chronic back pain greater th an 3 months duration acute March 12, 2024 9:43am CKD (chronic kidney disease) , stage III acute March 12 9:43am Hypertension acute February 9:43am 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 acute March 12 9:43am [facility] Work Phone: 1(734) 156-860510-30-2024 Evaluation note* Diagnosis Onset Date Resolution Status Admit Date Chronic back pain greater th an 3 months duration acute March 12, 2024 9:43am CKD (chronic kidney disease) , stage III acute March 12 9:43am Hypertension acute February 9:43am 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 acute March 12 9:43am Acute metabolic encephalopathy acute March 31, 2024 12:23pm Chronic back pain greater th an 3 months duration acute March 31, 2024 12:23pm CKD (chronic kidney disease) , stage III acute March 31 2 024 12:23pm Dehydration acute March 12:23pm Hypertension acute March 12:23pm 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 acute March 31 2 024 12:23pm [facility] Work Phone: 1(781) 973-408010-30-2024 Evaluation note* Diagnosis Onset Date Resolution Status Admit Date Chronic back pain greater th an 3 months duration acute March 12, 2024 9:43am CKD (chronic kidney disease) , stage III acute March 12 9:43am Hypertension acute February 9:43am 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 acute March 12 9:43am Acute metabolic encephalopathy acute March 31, 2024 12:23pm Acute urinary retention acute N ovember 2023 12:23pm Altered mental status acute Mar emb2023 12:23pm Chronic back pain greater th an 3 months duration acute March 31, 2024 12:23pm CKD (chronic kidney disease) , stage III acute March 31, 2 024 12:23pm Dehydration acute March 12:23pm Hypertension acute March 12:23pm 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 acute November 18th, 2 024 12:23pm [facility] Work Phone: 1(659) 193-449310-28-2024 Miscellaneous Notes* Telephone Encounter - Ivett Brothers - 03/10/2024 8:53 AM EDT Patient daughter called in regarding referral to Ophthalmology. Daughter states that Dr Mike Kern is too far for them, but they found another provider, Dr Meza, in [place]. She is asking if referral can be updated then faxed to that office. Patient's daughter also stated that patient was to follow up with Infectious Disease at [facility]. She is asking if we know of a provider in [place] or [facility]. * Telephone Encounter - Aga Mendoza MD - 03/10/2024 8:53 AM EDT New referral order placed to preferred ophthalmology provider. As for the infectious diseases referral, she can go wherever is closest if that is preferred. She can call [facility] and ask who they recommend. They had seen her and were supposed to schedule her appointment. So she should contact them. Thank you. * Telephone Encounter - Lisa Esparza - 03/10/2024 8:53 AM EDT I have attempted to contact this patient by phone with the following results: left message regarding Dr. Mendoza's below message. documented in this encounterBrattleboro Memorial HospitalCornice [id number] Telephone encounter Note* Telephone Encounter - Ivett Brothers - 03/10/2024 8:53 AM EDT Patient daughter called in regarding referral to Ophthalmology. Daughter states that Dr Mike Kern is too far for them, but they found another provider, Dr Meza, in [place]. She is asking if referral can be updated then faxed to that office. Patient's daughter also stated that patient was to follow up with Infectious Disease at [facility]. She is asking if we know of a provider in [place] or [facility]. [facility]10-28-2024 Telephone encounter Note* Telephone Encounter - Aga Mendoza MD - 03/10/2024 8:53 AM EDT New referral order placed to preferred ophthalmology provider. As for the infectious diseases referral, she can go wherever is closest if that is preferred. She can call [facility] and ask who they recommend. They had seen her and were supposed to schedule her appointment. So she should contact them. Thank you. [facility]10-28-2024 Telephone encounter Note* Telephone Encounter - Lisa Esparza - 03/10/2024 8:53 AM EDT I have attempted to contact this patient by phone with the following results: left message regarding Dr. Mendoza's below message. [facility]10-25-2024 Progress note* Discharge Planning Note - Gabriella Staples - 03/07/2024 3:16 PM EDT DISCHARGE PLANNING NOTE CRF to [facility] in [place], [place] (P# ; F# ) [facility]10-25-2024 Miscellaneous Notes* Discharge Planning Note - Gabriella Staples - 03/07/2024 3:16 PM EDT DISCHARGE PLANNING NOTE CRF to [facility] in [place], [place] (P# ; F# ) * Discharge Planning Note - Lisa Guzman RN - 03/07/2024 3:07 PM EDT DISCHARGE PLANNING NOTE Follow-up Discharge Planning Progress Note Per RN during discharge transition rounds, barriers to discharge are: none. Discharge Plan: Home with [facility] health care and [facility]. [facility] confirmed start of care today at 6 pm. Son Elijah updated, bedside nurse updated. [facility] tasked to send CRF to home care agency. Care Navigation will continue to follow for any discharge needs. - Lisa Guzman RN 03/07/24 3:09 PM \ * Plan of Care - Gayla Mcwilliams RN - 03/07/2024 11:17 AM EDT Problem: Pain Goal: Patient goal is pain score less than 4, able to rest, and participant in treatment plan as appropriate Description: INTERVENTIONS: 1. Encourage patient or legal wire rope sales representative to report early pain and ask for pain medicine when needed 2. Assess pain using appropriate pain scale and include the scale used when documenting 3. Administer analgesics based on type and severity of pain and evaluate response within appropriate time frame 4. Implement non-pharmacological measures as appropriate and evaluate response 5. Consider cultural and social influences on pain and pain management 6. Notify LIP if interventions ineffective or patient reports new pain 7. Monitor vital signs including pulse ox, end-tidal CO2 based on pain intervention 8. Reassess pain per policy 9. Teach patient or legal wire rope sales representative interventions for comforting Outcome: Progressing Note: Evaluation of progress towards goal: pt is adequately medicated according to the MAR. Will continue to monitor Problem: Safety Goal: Patient will be injury free during hospitalization Description: INTERVENTIONS: 1. Assess patient's risk for falls and implement fall prevention plan of care per policy 2. Provide and maintain a safe environment 3. Proper use of double Identifiers 4. Medication administration using the 5 rights 5. Hand hygiene 6. Specimens are labeled at the bedside 7. Instruct patient/ patient wire rope sales representative about use of safety devices 8. Include patient/ patient wire rope sales representative in decisions related to safety Outcome: Progressing Note: Evaluation of progress towards goal: pt has been injury free this shift. Will continue to monitor and keep items in reach and educate to use the call button when in need of anything Problem: Infection Goal: Absence of infection during hospitalization Description: Interventions: 1. Assess and monitor for signs and symptoms of infection 2. Monitor lab/diagnostic results 3. Monitor all insertion sites i.e., indwelling lines, tubes and drains 4. Monitor endotracheal (as able) and nasal secretions for changes in amount and color 5. Administer medications as ordered 6. Instruct and encourage patient and family to use good hand hygiene technique 7. Identify and instruct patient/patient wire rope sales representative in use of appropriate isolation precautionsfor identified infection/symptoms 8. 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 Encourage and monitor nutritional status daily and consult mock up builder if indicated 10. Implement neutropenic guidelines as needed 11. Review exposure to history of communicable disease and recent travel history on admission 12. Encourage annual influenza vaccine 13. Encourage pneumonia vaccine Outcome: Progressing Note: Evaluation of progress towards goal: hand hygiene is preformed when entering and leaving the room. And no new s/s of infection are present. Will continue to monitor Problem: Knowledge Deficit Goal: Patient/patient wire rope sales representative demonstrates understanding of disease process, treatment plan,medications, and discharge instructions Description: INTERVENTIONS 1. Complete learning assessment and assess knowledge base 2. Provide teaching at level of understanding 3. Provide teaching via preferred learning method(s) Outcome: Progressing Note: Evaluation of progress towards goal: pt and family verbalized and demonstrates understanding of plan of care and medications being given Problem: Discharge Planning Goal: Discharge to post-acute care, other facility, or home with appropriate resources Description: Patient's goal is: INTERVENTIONS 1. Conduct assessment to determine patient/family and health care team treatment goals, and need for post-acute services based on payer coverage, community resources, and patient preferences, and barriers to discharge 2. Coordinate with Social work, Care Navigation, and Utilization Review to arrange appropriate level of services according to patient's needs based on patient preference and payer coverage in collaboration with the physician and health care team 3. Address psychosocial, clinical, and financial barriers to discharge as identified in assessment in conjunction with the patient/family and health care team 4. Consult appropriate ancillary services (i.e.. PT/OT/ST, etc) as needed 5. Communicate with and update the patient/family, physician, and health care team regarding progress on the discharge plan 6. Identify discharge learning needs (meds, wound care, etc). 7. Arrange for needed discharge transportation as appropriate Outcome: Progressing Note: Evaluation of progress towards goal: pt will be discharged when deemed appropriate. Will continue to answer follow up questions Problem: Moderate - High Risk Fall Score Description: [place] Fall Score of =/> 25 or indicated by [facility] Assessment Goal: Patient should be free from fall Description: Interventions: 1. [place] to environment 2. Hourly rounds addressing the 4 P's (Pain, Positioning, Possessions, Potty) 3. Clear area of hazards (spills, clutter, electrical cords, unnecessary equipment) 4. Place equipment (bed & TV controls, call light, phone, urinal) within reach 5. Encourage patient to wear glasses and hearing aides as appropriate 6. Maintain bed in lowest position 7. Lock wheels on bed/wheelchair 8. Provide adequate lighting, including night light 9. Assess need for additional bedding, food/fluids, pain med's prior to sleep/routinely 10. Provide gripper slippers or personal non-skid footwear 11. Teach patient and patient wire rope sales representative to maintain environment for safety and engage in all aspects of fall prevention program 12. Remind patient to call for help before getting out of bed 13. Initiate bed/chair/exit alarms supportive devices as appropriate, (chair wedge, no-skid floor mat, raised edge mattress, hip protectors) 14. Locate patient bed assignment for optimal visualization 15. Evaluate and identify Safe Patient Handling Equipment needs 16. Provide supervision when out of bed or chair 17. Utilize gait belt as needed to assist with ambulation 18. Place adaptive equipment (cane, walker) within reach 19. Request patient wire rope sales representative bring adaptive equipment/mobility aids from home or obtain and provide as needed 20. Consult pharmacy regarding effects of med's affecting mobility, cognition, and alternatives 21. Obtain physician order for PT if risk factors associated with mobility are present 22. Obtain physician order for OT as appropriate 23. Utilize diversional activities 24. Educate patient and patient wire rope sales representative how to maintain a safe environment during visitationtimes (notify nurse prior to leaving bedside) 25. Consider appropriateness of medical or non-medical staffing coordinator 26. Set up voiding schedule as appropriate (every 2 hours) Outcome: Progressing Note: Evaluation of progress towards goal: Pt has been fall free this shift. Will continue to educate pt on fall risk and assess needs before leaving the room. Items and call light are within reach Problem: Urinary Incontinence Goal: Perineal skin integrity is maintained or improved Description: INTERVENTIONS 1. Assess genitourinary system, perineal skin, labs (urinalysis), and history of incontinence to include past management, aggravating, and alleviating factors 2. Keep skin clean and dry 3. Apply skin protectant 4. Develop skin care regimen 5. Provide privacy when changing patients incontinence device to maintain their dignity 6. Consider placing an indwelling catheter 7. Collaborate with interdisciplinary team and initiate plans and interventions as needed Outcome: Progressing Note: Evaluation of progress towards goal: Problem: Multi-Drug Resistant Organism / Rule-Out Infection Prevention Goal: Prevent transmission of infection Description: INTERVENTIONS 1. Place patient in private room or in room with patient with same disease 2. Discard single-use items 3. Clean reusable equipment between patients 4. Wear gloves for direct and indirect contact with patient or contaminants 5. Change gloves between tasks and procedures 6. Wash hands before and after caring for each patient 7. Wear appropriate personal protective equipment in relation to the indicated isolation type 8. Place appropriate isolation signage on patient's door 9. Provide patient/ patient wire rope sales representative with isolation education. Outcome: Progressing Note: Evaluation of progress towards goal: proper hand hygiene is performed when entering and exiting the room and proper PPE is worn during procedures * PT/OT/PUTTY GLAZER - JUDI Amaya/Kosta - 03/07/2024 9:55 AM EDT Occupational Therapy Treatment Discharge Recommendations OT Recommendations : [facility] 6 Clicks: Daily Activity Putting on and taking off regular lower body clothing?: A lot Bathing (including washing, rinsing, drying)?: A lot Toileting, which includes using toilet, bedpan or urinal?: A little Putting on and taking off regular upper body clothing?: A little Taking care of personal grooming such as brushing teeth?: A little Eating meals?: None Scoring Daily Activity Raw Score: 17 CMS G Code Modifier: CK OT Treatment/Interventions: Functional transfer training, ADL retraining, UE strengthening/ROM, Endurance training, Patient/family training, Equipment eval/education, Balance, Home management, Bed mobility, Compensatory technique education, Functional activities OT Frequency: 4-5days/week OT Duration: LOS Assessment Patient Assessment Therapy Problem List: Decreased ADL status, Decreased balance, Decreased endurance, Decreased high-level ADLs, Decreased mobility, Decreased self-care trans, Decreased UE strength, Decreased cognition, Decreased safe judgement during ADL Patient Response to Treatment: Slow progress, decreased activity tolerance Mood/Affect: Anxious Rehab Prognosis: Good, With continued OT status post acute discharge Visit RN Communication: Yes Medical Record Reviewed: Yes OT Type of Visit: Treatment Precautions Activity: Activity as tolerated per early mobility guidelines. okay to see per RN Equipment: gait belt, RW Telemetry/Flow Worker: No Other: Fall risk, LBP Pain Assessment Pain Assessment: 0-10 Pain Type: Acute pain Pain Location: Breast Pain Orientation: Right Pain Descriptors: Sharp, Shooting Pain Intervention(s): Repositioned, Ambulation/increased activity (RN made aware) Response to Interventions: Pain unchanged ADL / IADL Hand Dominance: Right Where Assessed: At toilet, Sitting at sink, Standing at sink, Edge of bed Grooming Assistance: Contact guard assist Grooming Deficit: Wash/dry hands, Wash/dry face, Oral hygiene Bathing/Showering Assistance: Contact guard assist, Max assist Bathing/Showering Deficit: Chest, Right arm, Left arm, Perineal area, Buttocks Toilet/Commode Assistance: Min assist Toilet/Commode Deficit: Clothing management up, Clothing management down UE Dressing Assistance: Standby assist LE Dressing Assistance: Min assist LE Dressing Deficit: Pull up over right hip, Pull up over left hip Footwear Assistance: Min assist Footwear Deficit: R shoe, L shoe Other: pt completed LBD of donning B slippers while sitting at EOB. min A required to complete. pt completed toileting x2 during session, min A required for clothing management up/down. pt completed bathing, dressing, and grooming tasks while standing/sitting at the sink. CGA required for grooming tasks and UBB while standing. pt able to complete cassie wash while standing with CGA. max A required to reach buttocks. dressing completed while seated. SBA provided UBD. min A required for LBD to thread B feet through underwear and to don to waist. increased time and effort required to complete selfcare tasks. pt required frequent rest breaks d/t fatigue and anxiety. pt impuslive with transitions within bathroom despite cues provided for safety. Home Management - IADL Other: pt completed LBD of donning B slippers while sitting at EOB. min A required to complete. pt completed toileting x2 during session, min A required for clothing management up/down. pt completed bathing, dressing, and grooming tasks while standing/sitting at the sink. CGA required for grooming tasks and UBB while standing. pt able to complete cassie wash while standing with CGA. max A required to reach buttocks. dressing completed while seated. SBA provided UBD. min A required for LBD to thread B feet through underwear and to don to waist. increased time and effort required to complete selfcare tasks. pt required frequent rest breaks d/t fatigue and anxiety. pt impuslive with transitions within bathroom despite cues provided for safety. Cognition Orientation Level: Oriented X4 Other: pt impuslive with transfers, cues required for safety throughout session. pt was very anxious during tx. Bed Mobility Supine to Sit: Contact guard assist Other: HOB elevated and use of rail required. CGA provided for safety. pt left in the chair at end of session with call light within reach and with RN aware. Transfers Sit to Stand: Min assist Stand to Sit: Modified independent, Min assist Toilet Transfers: Min assist Other: min A required for all transfers. cues required for safe hand placement. no LOB noted upon standing, however pt was mildly unsteady. Gait Gait Assistance: Min assist Assistive Device: Rolling walker Gait Distance: 15ft + 5ft x2 + 10ft Limiting Factors to Gait: Weakness, Fatigue, Decreased safety Other: pt requires min A for safety and stability. pt fatigues quickly. cues required for safe RW management to help decrease fall risk. Balance Sitting Balance: Static: Good Sitting Balance: Dynamic: Fair Standing Balance: Static: Fair Standing Balance: Dynamic: Fair (-) Other: pt stood at the sink for ADLs for approx 8 mins with CGA required. single UE support required for stability during tasks. pt sat unsupported during ADLs for approx 8 mins with SBA provided. ptrequires B UE support from RW with functional mobility and with min A required. no major LOB noted throughout session. Activity Tolerance Endurance: Tolerates 30 minutes activity with rest breaks Other: fair overall tolerance noted throughout session. pt is limited by weakness, fatigue, and decreased activity tolerance and safety awareness. Plan Occupational Therapy Care Plan Occupational Therapy Care Plan (Active) Template: OT - Occupational Therapy Problem: Activity Tolerance Dates: Start: 03/04/24 Disciplines: OT Goal: Tolerate 30 minutes of activity WITH rest breaks Dates: Start: 03/04/24 Expected End: 03/25/24 Description: Goal Description: Disciplines: OT Outcomes Date/Time User Outcome 03/07/24 0953 JUDI Amaya/Kosta Progressing 03/05/24 1602 Jena Mehta OTR/Kosta Progressing Goal Note filed on 03/07/24 0953 by JUDI Amaya/Kosta Evaluation of progress towards goal: Problem: Bed Mobility Dates: Start: 03/04/24 Disciplines: OT Goal: Patient will perform bed mobility with Modified [place] Dates: Start: 03/04/24 Expected End: 03/25/24 Description: Goal Description: sup to sit and sit to sup for EOB sitting during functional activity Disciplines: OT Outcomes Date/Time User Outcome 03/07/2453 HUGO Amaya Progressing 03/05/24 1602 Jean Mehta OTR/Kosta Progressing Goal Note filed on 03/07/24 0953 by JUDI Amaya/Kosta Evaluation of progress towards goal: Problem: Functional Mobility Dates: Start: 03/04/24 Disciplines: OT Goal: Patient will perform functional mobility with Supervision Dates: Start: 03/04/24 Expected End: 03/25/24 Description: Goal Description: use of walker and good safety Disciplines: OT Outcomes Date/Time User Outcome 03/07/24 0953 HUGO Amaya Progressing 03/05/24 1602 Jena Mehta OTR/Kosta Progressing Goal Note filed on 03/07/24 0953 by JUDI Amaya/Kosta Evaluation of progress towards goal: Problem: Other (Customize) Dates: Start: 03/04/24 Disciplines: OT Goal: Improve Dates: Start: 03/04/24 Expected End: 03/25/24 Description: Pt will demo all ADLs mod I/IND using AE/DME/compensatory strategies PRN and good safety. Disciplines: OT Outcomes Date/Time User Outcome 03/07/24 0953 HUGO Amaya Progressing 03/05/24 1602 JENNIFER Carpenter/Kosta Progressing Goal Note filed on 03/07/24 0953 by JUDI Amaya/Kosta Evaluation of progress towards goal: Problem: Sitting Balance Dates: Start: 03/04/24 Disciplines: OT Goal: Improve balance to good Dates: Start: 03/04/24 Expected End: 03/25/24 Description: Pt will demo good unsupported sitting balance 100% of the time during ADL/functional reaching tasks. Disciplines: OT Outcomes Date/Time User Outcome 03/07/24 0953 HUGO Amaya Progressing 03/05/24 1602 JENNIFER Carpenter/Kosta Progressing Goal Note filed on 03/07/24 0953 by JUDI Amaya/Kosta Evaluation of progress towards goal: Problem: Standing Balance Dates: Start: 03/04/24 Disciplines: OT Goal: Improve balance to good Dates: Start: 03/04/24 Expected End: 03/25/24 Description: Pt will demo good standing balance with use of UE support PRN for 5+ minutes for increased participation in ADLs. Disciplines: OT Outcomes Date/Time User Outcome 03/07/24 0953 HUGO Amaya Progressing 03/05/24 1602 JENNIFER Carpenter/Kosta Progressing Goal Note filed on 03/07/24 0953 by JUDI Amaya/Kosta Evaluation of progress towards goal: Problem: Strength Dates: Start: 03/04/24 Disciplines: OT Goal: Improve strength Dates: Start: 03/04/24 Expected End: 03/25/24 Description: Pt will demo good understanding of BUE HEP for increased strength to 5/5 during ADLs. Disciplines: OT Goal Note filed on 03/05/24 1602 by JENNIFER Carpenter/Kosta Evaluation of progress towards goal: Problem: Toilet Transfers Dates: Start: 03/04/24 Disciplines: OT Goal: Patient will perform toilet transfers with Supervision Dates: Start: 03/04/24 Expected End: 03/25/24 Description: Goal Description: Disciplines: OT Outcomes Date/Time User Outcome 03/07/2453 HUGO Amaya Progressing Goal Note filed on 03/07/24 09 by HUGO Amaya Evaluation of progress towards goal: Problem: Transfers Dates: Start: 03/04/24 Disciplines: OT Goal: Patient will perform transfers with Supervision Dates: Start: 03/04/24 Expected End: 03/25/24 Description: Goal Description: Sit to stand, stand to sit transfers with good safety and use of AD PRN Disciplines: OT Outcomes Date/Time User Outcome 03/07/2453 HUGO Amaya Progressing 03/05/24 1602 JENNIFER Carpenter/Kosta Progressing Goal Note filed on 03/07/24 09 by HUGO Amaya Evaluation of progress towards goal: Occupational Therapy Care Plan (Resolved) There are no resolved problems. Principal Problem: Viral meningitis Active Problems: Seizure ([facility] Cosigned by JENNIFER Vazquez/Kosta at 03/07/2024 2:40 PM EDT Associated attestation - Kelsi Ma OTR/L - 03/07/2024 2:40 PM EDT I have reviewed and agree with this note and education documentation for this visit. * PT/OT/PUTTY GLAZER - Fabiola Carter PTA - 03/07/2024 9:50 AM EDT Physical Therapy Treatment Discharge Recommendations PT Recommendations: [facility] Comments: Pt would benefit from further skilled therapy services to address deficits in functional strength, activity tolerance and decreased functional independence with mobility s/p acute illness and prolonged immobility. 6 Clicks: Basic Mobility Turning from your back to your side while in a flat bed without using bed rails?: A little Moving from lying on your back to sitting on side of flat bed without using bed rails?: A lot Moving to and from bed to a chair (including w/c)?: A little Standing up from a chair using your arms (e.g. w/c or bedside chair)?: A little To walk in hospital room?: A little Climbing 3-5 steps with a railing?: Total Scoring 6 Clicks: Basic Mobility Raw Score: 15 CMS G Code Modifier: CK Patient Response to Treatment: Slow progress, decreased activity tolerance Assessment Patient Assessment Patient Response to Treatment: Slow progress, decreased activity tolerance Visit RN Communication: Yes Medical Record Reviewed: Yes PT Type of Visit: Treatment Precautions Activity: Activity as tolerated per early mobility guidelines, ok to see for therapy per Ewelina ALVARES Equipment: Gait belt, RW, chair alarm/bed alarm Telemetry/Flow Worker: No Oxygen Used: room air Other: Fall risk, LBP Pain Assessment Pain Assessment: No/denies pain (Patient c/o intermittent sharp pain in R breast during tx. Ewelina ALVARES, notified and checked on patient) Cognition Following Commands: Follows one step commands with repetition, Follows one step commands with increased time Safety Judgment: Decreased awareness of need for safety, Decreased awareness of need for assistance Awareness of Errors: Assistance required to identify errors made, Assistance required to correct errors made Insight of Deficits: Decreased awareness of deficits Other: Decrease safety awareness with mobility noted. Education provided on improved safety with mobility and fall prevention. Bed Mobility Supine to Sit: Contact guard assist, Verbal cues Sit to Supine: Unable to assess (Pt up in chair with call light and chair alarm on. RN aware.) Other: HOB slightly elevated Transfers Sit to Stand: Min assist, Verbal cues Stand to Sit: Min assist, Verbal cues Bed to Chair: Min assist, Verbal cues Toilet Transfers: Min assist (x2 toilet transfers completed) Other: Patient impulsive, decrease safety awareness noted. Education provided to slow down for improved safety and cues for safety with hand placement to reduce the risk of falls. Gait Base of Support: Within Functional Limits Pattern: Decreased gera, Forward trunk, R Decreased foot clearance, L Decreased foot clearance Gait Assistance: Min assist Assistive Device: Rolling walker Gait Distance: 15', 10', 5'x2 Limiting Factors to Gait: Weakness, Fatigue, Decreased safety Other: Patient fatigues quickly, decrease safety awareness noted with turns. Cues for improved safety awareness with walker. Assist for safety. Balance Sitting Balance: Static: Good Sitting Balance: Dynamic: Fair Standing Balance: Static: Fair Standing Balance: Dynamic: Fair (Fair-) Other: Patient stood at sink ~8 minutes for ADL focusing on improved activity [place] and balance. Patient required at least 1 UE support for balance. Patient sat unsupported on shower chair at sink ~8 minutes for ADL. Activity Tolerance Endurance: Tolerates 30 minutes activity with rest breaks Other: Focused on functional mobility and improved safety awareness. Plan Physical Therapy Care Plan Physical Therapy Care Plan (Active) Template: PT - Physical Therapy Problem: Activity Tolerance Dates: Start: 03/04/24 Disciplines: PT Goal: Tolerate > 30 minutes of activity WITH rest breaks Dates: Start: 03/04/24 Expected End: 03/18/24 Description: Goal Description:Patient to perform functional range / strength exercises to improve functional strength, activity tolerance and balance for improved independence and safety with mobility. Disciplines: PT Outcomes Date/Time User Outcome 03/07/24 0941 Fabiola Carter ART SUPERVISOR Progressing 03/05/24 1536 Winnie Handy PTA Progressing Goal Note filed on 03/05/24 153 by Winnie Handy PTA Evaluation of progress towards goal: Problem: Bed Mobility Dates: Start: 03/04/24 Disciplines: PT Goal: Patient will perform bed mobility with Modified [place] Dates: Start: 03/04/24 Expected End: 03/18/24 Description: Goal Description: Disciplines: PT Outcomes Date/Time User Outcome 03/07/24 0941 Fabiola Carter, ART SUPERVISOR Progressing 03/05/24 1536 Winnie Handy PTA Progressing Goal Note filed on 03/05/24 1536 by Winnie Handy PTA Evaluation of progress towards goal: Problem: Gait Dates: Start: 03/04/24 Disciplines: PT Goal: Patient will perform gait with Modified [place] Dates: Start: 03/04/24 Expected End: 03/18/24 Description: With__RW__,__>50__feet Goal Description: Disciplines: PT Outcomes Date/Time User Outcome 03/07/24 09Edgar Carter PTA Progressing 03/05/24 1536 Winnie Handy PTA Progressing Goal Note filed on 03/05/24 1536 by Winnie Handy PTA Evaluation of progress towards goal: Problem: Sitting Balance Dates: Start: 03/04/24 Disciplines: PT Goal: Improve balance to good Dates: Start: 03/04/24 Expected End: 03/18/24 Description: Static Dynamic Disciplines: PT Outcomes Date/Time User Outcome 03/07/24 0941 Fabiola Carter PTA Progressing 03/05/241535 Winnie Handy PTA Progressing Goal Note filed on 03/05/241535 by Winnie Handy PTA Evaluation of progress towards goal: Problem: Standing Balance Dates: Start: 03/04/24 Disciplines: PT Goal: Improve balance to good Dates: Start: 03/04/24 Expected End: 03/18/24 Description: With bilat UE support Disciplines: PT Outcomes Date/Time User Outcome 03/07/24 0941 Fabiola Carter PTA Progressing 03/05/24 153 Winnie Handy PTA Progressing Goal Note filed on 03/05/241535 by Winnie Handy PTA Evaluation of progress towards goal: Problem: Strength Dates: Start: 03/04/24 Disciplines: PT Goal: Improve strength Dates: Start: 03/04/24 Expected End: 03/18/24 Description: Of extremity/ location: To facilitate: Disciplines: PT Outcomes Date/Time User Outcome 03/05/241535 Winnie Handy PTA Progressing Goal Note filed on 03/05/24 153 by Winnie Handy PTA Evaluation of progress towards goal: Problem: Transfers Dates: Start: 03/04/24 Disciplines: PT Goal: Patient will perform transfers with Modified [place] Dates: Start: 03/04/24 Expected End: 03/18/24 Description: Goal Description:Patient to perform mobility with good safety awareness. Disciplines: PT Outcomes Date/Time User Outcome 03/07/2441 Fabiola Carter PTA Progressing 03/05/24 153 Winnie Handy PTA Progressing Goal Note filed on 03/05/24 153 by Winnie Handy PTA Evaluation of progress towards goal: Physical Therapy Care Plan (Resolved) There are no resolved problems. Principal Problem: Viral meningitis Active Problems: Seizure ([facility]) Cosigned by Gissell Friend PT at 03/07/2024 11:28 AM EDT Associated attestation - RonnaGissell Kosta, PT - 03/07/2024 11:28 AM EDT I have reviewed and agree with this note and education documentation for this visit. * Plan of Care - Fannie Rooney RN - 03/07/2024 3:23 AM EDT Problem: Pain Goal: Patient goal is pain score less than 4, able to rest, and participant in treatment plan as appropriate Description: INTERVENTIONS: 1. Encourage patient or legal wire rope sales representative to report early pain and ask for pain medicine when needed 2. Assess pain using appropriate pain scale and include the scale used when documenting 3. Administer analgesics based on type and severity of pain and evaluate response within appropriate time frame 4. Implement non-pharmacological measures as appropriate and evaluate response 5. Consider cultural and social influences on pain and pain management 6. Notify LIP if interventions ineffective or patient reports new pain 7. Monitor vital signs including pulse ox, end-tidal CO2 based on pain intervention 8. Reassess pain per policy 9. Teach patient or legal wire rope sales representative interventions for comforting Outcome: Progressing Note: Evaluation of progress towards goal: Pain is managed to a tolerable level with PRN pain meds and non-pharm interventions, assessments completed, VS monitored, patient encouraged to report pain early, med administration as ordered Problem: Safety Goal: Patient will be injury free during hospitalization Description: INTERVENTIONS: 1. Assess patient's risk for falls and implement fall prevention plan of care per policy 2. Provide and maintain a safe environment 3. Proper use of double Identifiers 4. Medication administration using the 5 rights 5. Hand hygiene 6. Specimens are labeled at the bedside 7. Instruct patient/ patient wire rope sales representative about use of safety devices 8. Include patient/ patient wire rope sales representative in decisions related to safety Outcome: Progressing Note: Evaluation of progress towards goal: Patient safety is maintained. Patient is free from injury, side rails are up x2, call light is within reach, and bed is in lowest position. Problem: Infection Goal: Absence of infection during hospitalization Description: Interventions: 1. Assess and monitor for signs and symptoms of infection 2. Monitor lab/diagnostic results 3. Monitor all insertion sites i.e., indwelling lines, tubes and drains 4. Monitor endotracheal (as able) and nasal secretions for changes in amount and color 5. Administer medications as ordered 6. Instruct and encourage patient and family to use good hand hygiene technique 7. Identify and instruct patient/patient wire rope sales representative in use of appropriate isolation precautionsfor identified infection/symptoms 8. 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 Encourage and monitor nutritional status daily and consult mock up builder if indicated 10. Implement neutropenic guidelines as needed 11. Review exposure to history of communicable disease and recent travel history on admission 12. Encourage annual influenza vaccine 13. Encourage pneumonia vaccine Outcome: Progressing Note: Evaluation of progress towards goal: Handwashing and standard precautions maintained. Patientremains free from infection through shift and has not shown any additional signs of infection at this time. Will continue to educate on infection prevention. Problem: Knowledge Deficit Goal: Patient/patient wire rope sales representative demonstrates understanding of disease process, treatment plan,medications, and discharge instructions Description: INTERVENTIONS 1. Complete learning assessment and assess knowledge base 2. Provide teaching at level of understanding 3. Provide teaching via preferred learning method(s) Outcome: Progressing Note: Evaluation of progress towards goal: Patient is included in plan of care. All questions are answered at this time. Will continue to educate. Problem: Discharge Planning Goal: Discharge to post-acute care, other facility, or home with appropriate resources Description: Patient's goal is: INTERVENTIONS 1. Conduct assessment to determine patient/family and health care team treatment goals, and need for post-acute services based on payer coverage, community resources, and patient preferences, and barriers to discharge 2. Coordinate with Social work, Care Navigation, and Utilization Review to arrange appropriate level of services according to patient's needs based on patient preference and payer coverage in collaboration with the physician and health care team 3. Address psychosocial, clinical, and financial barriers to discharge as identified in assessment in conjunction with the patient/family and health care team 4. Consult appropriate ancillary services (i.e.. PT/OT/ST, etc) as needed 5. Communicate with and update the patient/family, physician, and health care team regarding progress on the discharge plan 6. Identify discharge learning needs (meds, wound care, etc). 7. Arrange for needed discharge transportation as appropriate Outcome: Progressing Note: Evaluation of progress towards goal: Patient is included in all discharge planning. Social work, PT/OT are involved. Plan to discharge home with home health care for antibiotic infusions. * Discharge Planning Note - Radha Mejias - 03/06/2024 3:52 PM EDT DISCHARGE PLANNING NOTE Referral sent to [facility], [facility] [place] [facility] [place], [place] [facility] - (P# ; F# ) * Plan of Care - Carolin Jerome RN - 03/06/2024 12:46 PM EDT Problem: Pain Goal: Patient goal is pain score less than 4, able to rest, and participant in treatment plan as appropriate Description: INTERVENTIONS: 1. Encourage patient or legal wire rope sales representative to report early pain and ask for pain medicine when needed 2. Assess pain using appropriate pain scale and include the scale used when documenting 3. Administer analgesics based on type and severity of pain and evaluate response within appropriate time frame 4. Implement non-pharmacological measures as appropriate and evaluate response 5. Consider cultural and social influences on pain and pain management 6. Notify LIP if interventions ineffective or patient reports new pain 7. Monitor vital signs including pulse ox, end-tidal CO2 based on pain intervention 8. Reassess pain per policy 9. Teach patient or legal wire rope sales representative interventions for comforting Outcome: Progressing Note: Evaluation of progress towards goal: Pt has PRN pain meds available during shift, will continue to monitor. Problem: Safety Goal: Patient will be injury free during hospitalization Description: INTERVENTIONS: 1. Assess patient's risk for falls and implement fall prevention plan of care per policy 2. Provide and maintain a safe environment 3. Proper use of double Identifiers 4. Medication administration using the 5 rights 5. Hand hygiene 6. Specimens are labeled at the bedside 7. Instruct patient/ patient wire rope sales representative about use of safety devices 8. Include patient/ patient wire rope sales representative in decisions related to safety Outcome: Progressing Note: Evaluation of progress towards goal: Pt environment safe and items within reach during shift. Problem: Infection Goal: Absence of infection during hospitalization Description: Interventions: 1. Assess and monitor for signs and symptoms of infection 2. Monitor lab/diagnostic results 3. Monitor all insertion sites i.e., indwelling lines, tubes and drains 4. Monitor endotracheal (as able) and nasal secretions for changes in amount and color 5. Administer medications as ordered 6. Instruct and encourage patient and family to use good hand hygiene technique 7. Identify and instruct patient/patient wire rope sales representative in use of appropriate isolation precautionsfor identified infection/symptoms 8. 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 Encourage and monitor nutritional status daily and consult mock up builder if indicated 10. Implement neutropenic guidelines as needed 11. Review exposure to history of communicable disease and recent travel history on admission 12. Encourage annual influenza vaccine 13. Encourage pneumonia vaccine Outcome: Progressing Note: Evaluation of progress towards goal: Pt afebrile, vss, will continue to monitor during shift. Problem: Knowledge Deficit Goal: Patient/patient wire rope sales representative demonstrates understanding of disease process, treatment plan,medications, and discharge instructions Description: INTERVENTIONS 1. Complete learning assessment and assess knowledge base 2. Provide teaching at level of understanding 3. Provide teaching via preferred learning method(s) Outcome: Progressing Note: Evaluation of progress towards goal: Discussed plan with pt and answered questions as needed during shift. Problem: Moderate - High Risk Fall Score Description: [place] Fall Score of =/> 25 or indicated by [facility] Assessment Goal: Patient should be free from fall Description: Interventions: 1. [place] to environment 2. Hourly rounds addressing the 4 P's (Pain, Positioning, Possessions, Potty) 3. Clear area of hazards (spills, clutter, electrical cords, unnecessary equipment) 4. Place equipment (bed & TV controls, call light, phone, urinal) within reach 5. Encourage patient to wear glasses and hearing aides as appropriate 6. Maintain bed in lowest position 7. Lock wheels on bed/wheelchair 8. Provide adequate lighting, including night light 9. Assess need for additional bedding, food/fluids, pain med's prior to sleep/routinely 10. Provide gripper slippers or personal non-skid footwear 11. Teach patient and patient wire rope sales representative to maintain environment for safety and engage in all aspects of fall prevention program 12. Remind patient to call for help before getting out of bed 13. Initiate bed/chair/exit alarms supportive devices as appropriate, (chair wedge, no-skid floor mat, raised edge mattress, hip protectors) 14. Locate patient bed assignment for optimal visualization 15. Evaluate and identify Safe Patient Handling Equipment needs 16. Provide supervision when out of bed or chair 17. Utilize gait belt as needed to assist with ambulation 18. Place adaptive equipment (cane, walker) within reach 19. Request patient wire rope sales representative bring adaptive equipment/mobility aids from home or obtain and provide as needed 20. Consult pharmacy regarding effects of med's affecting mobility, cognition, and alternatives 21. Obtain physician order for PT if risk factors associated with mobility are present 22. Obtain physician order for OT as appropriate 23. Utilize diversional activities 24. Educate patient and patient wire rope sales representative how to maintain a safe environment during visitationtimes (notify nurse prior to leaving bedside) 25. Consider appropriateness of medical or non-medical staffing coordinator 26. Set up voiding schedule as appropriate (every 2 hours) Outcome: Progressing Note: Evaluation of progress towards goal: Pt remains free from falls, bed alarm maintained as needed, will continue to monitor during shift. Problem: Urinary Incontinence Goal: Perineal skin integrity is maintained or improved Description: INTERVENTIONS 1. Assess genitourinary system, perineal skin, labs (urinalysis), and history of incontinence to include past management, aggravating, and alleviating factors 2. Keep skin clean and dry 3. Apply skin protectant 4. Develop skin care regimen 5. Provide privacy when changing patients incontinence device to maintain their dignity 6. Consider placing an indwelling catheter 7. Collaborate with interdisciplinary team and initiate plans and interventions as needed Outcome: Progressing Note: Evaluation of progress towards goal: output monitored during shift. * Discharge Planning Note - Lisa Guzman RN - 03/06/2024 11:10 AM EDT DISCHARGE PLANNING NOTE Follow-up Discharge Planning Progress Note Per RN during discharge transition rounds, barriers to discharge are: Home care and IV infusion forIV antibiotics at home. Discharge Plan: [facility] can clinically accept, verifying patient benefits. Tentative plan. Patient will discharge tomorrow, with plan for her second dose- Around 5pm or so parmjit started at home. Son available to pick her up after 4 tomorrow and plan for him and sister to meet with home care for teaching. [facility]wait [facility] [facility] on verification and time frame for IV antibiotics to be delivered. Prescription and lab orders faxed to [facility]. Care Navigation will continue to follow for any discharge needs. - Lisa Guzman RN 03/06/24 11:17 AM * Discharge Planning Note - Neli Rosa - 03/06/2024 8:38 AM EDT DISCHARGE PLANNING NOTE Referral sent to [facility] [place], [place] (P# [phone] ; F# [phone]) * Plan of Care - Tashia Redding RN - 03/05/2024 10:27 PM EDT Problem: Pain Goal: Patient goal is pain score less than 4, able to rest, and participant in treatment plan as appropriate Description: INTERVENTIONS: 1. Encourage patient or legal wire rope sales representative to report early pain and ask for pain medicine when needed 2. Assess pain using appropriate pain scale and include the scale used when documenting 3. Administer analgesics based on type and severity of pain and evaluate response within appropriate time frame 4. Implement non-pharmacological measures as appropriate and evaluate response 5. Consider cultural and social influences on pain and pain management 6. Notify LIP if interventions ineffective or patient reports new pain 7. Monitor vital signs including pulse ox, end-tidal CO2 based on pain intervention 8. Reassess pain per policy 9. Teach patient or legal wire rope sales representative interventions for comforting Outcome: Progressing Note: Evaluation of progress towards goal: Pt encouraged to report pain on a scale of 1-10. PRN pain medications available Problem: Safety Goal: Patient will be injury free during hospitalization Description: INTERVENTIONS: 1. Assess patient's risk for falls and implement fall prevention plan of care per policy 2. Provide and maintain a safe environment 3. Proper use of double Identifiers 4. Medication administration using the 5 rights 5. Hand hygiene 6. Specimens are labeled at the bedside 7. Instruct patient/ patient wire rope sales representative about use of safety devices 8. Include patient/ patient wire rope sales representative in decisions related to safety Outcome: Progressing Note: Evaluation of progress towards goal: Pt. Remains injury free this hospitalization, safety precautions maintained. Problem: Infection Goal: Absence of infection during hospitalization Description: Interventions: 1. Assess and monitor for signs and symptoms of infection 2. Monitor lab/diagnostic results 3. Monitor all insertion sites i.e., indwelling lines, tubes and drains 4. Monitor endotracheal (as able) and nasal secretions for changes in amount and color 5. Administer medications as ordered 6. Instruct and encourage patient and family to use good hand hygiene technique 7. Identify and instruct patient/patient wire rope sales representative in use of appropriate isolation precautionsfor identified infection/symptoms 8. 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 Encourage and monitor nutritional status daily and consult mock up builder if indicated 10. Implement neutropenic guidelines as needed 11. Review exposure to history of communicable disease and recent travel history on admission 12. Encourage annual influenza vaccine 13. Encourage pneumonia vaccine Outcome: Progressing Note: Evaluation of progress towards goal: Pt. Infection control progressing. Pt. Being treated forinfection with antibiotics. Pt. Educated on medication, pt. Verbalized understanding and had all questions answered. Problem: Knowledge Deficit Goal: Patient/patient wire rope sales representative demonstrates understanding of disease process, treatment plan,medications, and discharge instructions Description: INTERVENTIONS 1. Complete learning assessment and assess knowledge base 2. Provide teaching at level of understanding 3. Provide teaching via preferred learning method(s) Outcome: Progressing Note: Evaluation of progress towards goal: Pt. Education on disease process, plan of care and medications. Pt. Verbalized understanding and all questions were answered. Problem: Moderate - High Risk Fall Score Description: [place] Fall Score of =/> 25 or indicated by [facility] Assessment Goal: Patient should be free from fall Description: Interventions: 1. [place] to environment 2. Hourly rounds addressing the 4 P's (Pain, Positioning, Possessions, Potty) 3. Clear area of hazards (spills, clutter, electrical cords, unnecessary equipment) 4. Place equipment (bed & TV controls, call light, phone, urinal) within reach 5. Encourage patient to wear glasses and hearing aides as appropriate 6. Maintain bed in lowest position 7. Lock wheels on bed/wheelchair 8. Provide adequate lighting, including night light 9. Assess need for additional bedding, food/fluids, pain med's prior to sleep/routinely 10. Provide gripper slippers or personal non-skid footwear 11. Teach patient and patient wire rope sales representative to maintain environment for safety and engage in all aspects of fall prevention program 12. Remind patient to call for help before getting out of bed 13. Initiate bed/chair/exit alarms supportive devices as appropriate, (chair wedge, no-skid floor mat, raised edge mattress, hip protectors) 14. Locate patient bed assignment for optimal visualization 15. Evaluate and identify Safe Patient Handling Equipment needs 16. Provide supervision when out of bed or chair 17. Utilize gait belt as needed to assist with ambulation 18. Place adaptive equipment (cane, walker) within reach 19. Request patient wire rope sales representative bring adaptive equipment/mobility aids from home or obtain and provide as needed 20. Consult pharmacy regarding effects of med's affecting mobility, cognition, and alternatives 21. Obtain physician order for PT if risk factors associated with mobility are present 22. Obtain physician order for OT as appropriate 23. Utilize diversional activities 24. Educate patient and patient wire rope sales representative how to maintain a safe environment during visitationtimes (notify nurse prior to leaving bedside) 25. Consider appropriateness of medical or non-medical staffing coordinator 26. Set up voiding schedule as appropriate (every 2 hours) Outcome: Progressing Note: Evaluation of progress towards goal: Pt. Remains fall free this hospitalization. Safety precautions maintained. * PT/OT/PUTTY GLAZER - JENNIFER Carpenter/Kosta - 03/05/2024 4:03 PM EDT Occupational Therapy Treatment Discharge Recommendations OT Recommendations : [facility] 6 Clicks: Daily Activity Putting on and taking off regular lower body clothing?: A lot Bathing (including washing, rinsing, drying)?: A lot Toileting, which includes using toilet, bedpan or urinal?: A little Putting on and taking off regular upper body clothing?: A little Taking care of personal grooming such as brushing teeth?: A little Eating meals?: None Scoring Daily Activity Raw Score: 17 CMS G Code Modifier: CK Therapy Plan OT Treatment/Interventions: Functional transfer training, ADL retraining, UE strengthening/ROM, Endurance training, Patient/family training, Equipment eval/education, Balance, Home management, Bed mobility, Compensatory technique education, Functional activities OT Frequency: 4-5days/week OT Duration: LOS Assessment Patient Assessment Therapy Problem List: Decreased ADL status, Decreased balance, Decreased endurance, Decreased high-level ADLs, Decreased mobility, Decreased self-care trans, Decreased UE strength, Decreased cognition, Decreased safe judgement during ADL Patient Response to Treatment: Progressing toward goals Mood/Affect: Appropriate for circumstances Rehab Prognosis: Good, With continued OT status post acute discharge Visit RN Communication: Yes Medical Record Reviewed: Yes OT Type of Visit: Treatment Precautions Activity: Activity as tolerated per early mobility guidelines Equipment: Gait belt, RW, chair alarm/bed alarm Telemetry/Flow Worker: No Oxygen Used: Room air Other: Fall risk, LBP Pain Assessment Pain Assessment: No/denies pain ADL / IADL Hand Dominance: Right UE Dressing Assistance: Min assist LE Dressing Assistance: Mod assist Footwear Assistance: Min assist Other: Pt donned undergarments at bedside with assistance to pull up over hips in standing position. Pt donned shoes with assistance to place toes. Pt donned front opening garment with assistance to bring around back. Home Management - IADL Other: Pt donned undergarments at bedside with assistance to pull up over hips in standing position. Pt donned shoes with assistance to place toes. Pt donned front opening garment with assistance to bring around back. Hearing / Speech / Vision Hearing: Hard of hearing/hearing concerns Speech: Within Functional Limits Current Vision: Wears glasses all the time Cognition Overall Cognitive Status: Exceptions to Within Functional Limits Orientation Level: Oriented X4 Other: Pt somewhat confused, nonsensical at times. Frequent redirection required. Bed Mobility Supine to Sit: Min assist Sit to Supine: Min assist Other: Assistance for BLE's. Pt returned to supine despite max encouragement to remain in chair post-session. Pt left with call light in reach. Bed alarm on. Transfers Sit to Stand: Min assist Stand to Sit: Min assist Other: VC's for safe hand placement using RW. Pt performed sit<>stand x4 today. No dizziness. Gait Gait Assistance: Min assist Assistive Device: Rolling walker Gait Distance: 25 ft x2 Limiting Factors to Gait: Weakness, Fatigue, Decreased safety Other: VC's for safe navigation using RW. No major LOB. Seated rest break between distances. Balance Balance Evaluation: Exceptions to Functional Limits Sitting Balance: Static: Good Sitting Balance: Dynamic: Fair Standing Balance: Static: Fair Standing Balance: Dynamic: Fair Activity Tolerance Endurance: Tolerates >30 minutes activity with rest breaks Plan Occupational Therapy Care Plan Occupational Therapy Care Plan (Active) Template: OT - Occupational Therapy Problem: Activity Tolerance Dates: Start: 03/04/24 Disciplines: OT Goal: Tolerate 30 minutes of activity WITH rest breaks Dates: Start: 03/04/24 Expected End: 03/25/24 Description: Goal Description: Disciplines: OT Outcomes Date/Time User Outcome 03/05/24 1602 ROXANNE Carpenter Progressing Goal Note filed on 03/05/24 160 by ROXANNE Carpenter Evaluation of progress towards goal: Problem: Bed Mobility Dates: Start: 03/04/24 Disciplines: OT Goal: Patient will perform bed mobility with Modified [place] Dates: Start: 03/04/24 Expected End: 03/25/24 Description: Goal Description: sup to sit and sit to sup for EOB sitting during functional activity Disciplines: OT Outcomes Date/Time User Outcome 03/05/24 1602 ROXANNE Carpenter Progressing Goal Note filed on 03/05/24 160 by JENNIFER Carpenter/Kosta Evaluation of progress towards goal: Problem: Functional Mobility Dates: Start: 03/04/24 Disciplines: OT Goal: Patient will perform functional mobility with Supervision Dates: Start: 03/04/24 Expected End: 03/25/24 Description: Goal Description: use of walker and good safety Disciplines: OT Outcomes Date/Time User Outcome 03/05/24 1602 JENNIFER Carpenter/Kosta Progressing Goal Note filed on 03/05/24 160 by JENNIFER Carpenter/Kosta Evaluation of progress towards goal: Problem: Other (Customize) Dates: Start: 03/04/24 Disciplines: OT Goal: Improve Dates: Start: 03/04/24 Expected End: 03/25/24 Description: Pt will demo all ADLs mod I/IND using AE/DME/compensatory strategies PRN and good safety. Disciplines: OT Outcomes Date/Time User Outcome 03/05/24 1602 JENNIFER Carpenter/Kosta Progressing Goal Note filed on 03/05/24 1602 by JENNIFER Carpenter/Kosta Evaluation of progress towards goal: Problem: Sitting Balance Dates: Start: 03/04/24 Disciplines: OT Goal: Improve balance to good Dates: Start: 03/04/24 Expected End: 03/25/24 Description: Pt will demo good unsupported sitting balance 100% of the time during ADL/functional reaching tasks. Disciplines: OT Outcomes Date/Time User Outcome 03/05/24 1602 JENNIFER Carpenter/Kosta Progressing Goal Note filed on 03/05/24 160 by JENNIFER Carpenter/Kosta Evaluation of progress towards goal: Problem: Standing Balance Dates: Start: 03/04/24 Disciplines: OT Goal: Improve balance to good Dates: Start: 03/04/24 Expected End: 03/25/24 Description: Pt will demo good standing balance with use of UE support PRN for 5+ minutes for increased participation in ADLs. Disciplines: OT Outcomes Date/Time User Outcome 03/05/24 160 JENNIFER Carpenter/Kosta Progressing Goal Note filed on 03/05/24 160 by JENNIFER Carpenter/Kosta Evaluation of progress towards goal: Problem: Strength Dates: Start: 03/04/24 Disciplines: OT Goal: Improve strength Dates: Start: 03/04/24 Expected End: 03/25/24 Description: Pt will demo good understanding of BUE HEP for increased strength to 5/5 during ADLs. Disciplines: OT Goal Note filed on 03/05/24 160 by JENNIFER Carpenter/Kosta Evaluation of progress towards goal: Problem: Toilet Transfers Dates: Start: 03/04/24 Disciplines: OT Goal: Patient will perform toilet transfers with Supervision Dates: Start: 03/04/24 Expected End: 03/25/24 Description: Goal Description: Disciplines: OT Problem: Transfers Dates: Start: 03/04/24 Disciplines: OT Goal: Patient will perform transfers with Supervision Dates: Start: 03/04/24 Expected End: 03/25/24 Description: Goal Description: Sit to stand, stand to sit transfers with good safety and use of AD PRN Disciplines: OT Outcomes Date/Time User Outcome 03/05/24 160 JENNIFER Carpenter/Kosta Progressing Goal Note filed on 03/05/24 160 by JENNIFER Carpenter/Kosta Evaluation of progress towards goal: Occupational Therapy Care Plan (Resolved) There are no resolved problems. Principal Problem: Viral meningitis Active Problems: Seizure ([facility]) * PT/OT/PUTTY GLAZER - Winnie Handy PTA - 03/05/2024 3:57 PM EDT Physical Therapy Treatment Discharge Recommendations PT Recommendations: [facility] 6 Clicks: Basic Mobility Turning from your back to your side while in a flat bed without using bed rails?: A little Moving from lying on your back to sitting on side of flat bed without using bed rails?: A little Moving to and from bed to a chair (including w/c)?: A little Standing up from a chair using your arms (e.g. w/c or bedside chair)?: A little To walk in hospital room?: A lot Climbing 3-5 steps with a railing?: A lot Scoring 6 Clicks: Basic Mobility Raw Score: 16 CMS G Code Modifier: CK Therapy Plan Patient Response to Treatment: Progressing toward goals Assessment Patient Assessment Therapy Problem List: Decreased balance, Decreased cognition, Decreased endurance, Decreased mobility, Decreased LE ROM, Decreased LE strength Patient Response to Treatment: Progressing toward goals Mood/Affect: Appropriate for circumstances Rehab Prognosis: Good, With continued PT status post acute discharge Visit RN Communication: Yes Medical Record Reviewed: Yes PT Type of Visit: Treatment Precautions Activity: ok for therapy per RN Equipment: RW, gait belt, chair alarm/bd alarm Other: Fall risk, LBP Pain Assessment Pain Assessment: No/denies pain Cognition Following Commands: Follows one step commands with repetition, Follows one step commands with increased time Safety Judgment: Decreased awareness of need for safety, Decreased awareness of need for assistance Awareness of Errors: Assistance required to identify errors made, Assistance required to correct errors made Insight of Deficits: Decreased awareness of deficits Problem Solving: Assistance required to identify errors made, Assistance required to generate solutions Bed Mobility Supine to Sit: Min assist, Left Sit to Supine: Min assist Other: cues for logrolling, use of rail Transfers Sit to Stand: Min assist Stand to Sit: Min assist Other: cues for hand placement Gait Base of Support: Within Functional Limits Pattern: Decreased gera, Forward trunk, R Decreased foot clearance, L Decreased foot clearance Gait Assistance: Min assist Assistive Device: Rolling walker Gait Distance: 25' x 2 Limiting Factors to Gait: Weakness, Fatigue, Decreased safety Other: pt demonstrates forward posture with decreased bilat step length- unsteady/decreased safety with turns-cues for pursed lip breathing-pt tends to hold her breath-pt c/o nausea while resting after firs walk-requested to return to room-RN notified Balance Sitting Balance: Static: Good Sitting Balance: Dynamic: Fair Standing Balance: Static: Fair Standing Balance: Dynamic: Fair (-) Other: unsupported sitting balance @ EOB to don shoes/gowns-pt unsteady in standing-RW with bilat UE support for balance-pt reports she has been getting up without assist-educated pt on importance ofhaving assist when up and use of RW to decrease fall risk Activity Tolerance Endurance: Tolerates >30 minutes activity with rest breaks Other: gave pt written seated HEP, encouraged OOB to chair, use of spirometer and having assist when up 03/05/24 1438 LE Seated LE seated exercises performed? Yes Ankle pumps x Long arc quads x Hip abduction/adduction x Other AROM Repetitions x 15-20 reps Plan Physical Therapy Care Plan Physical Therapy Care Plan (Active) Template: PT - Physical Therapy Problem: Activity Tolerance Dates: Start: 03/04/24 Disciplines: PT Goal: Tolerate > 30 minutes of activity WITH rest breaks Dates: Start: 03/04/24 Expected End: 03/18/24 Description: Goal Description:Patient to perform functional range / strength exercises to improve functional strength, activity tolerance and balance for improved independence and safety with mobility. Disciplines: PT Outcomes Date/Time User Outcome 03/05/241535 Winnie Handy PTA Progressing Goal Note filed on 03/05/241535 by Winnie Handy PTA Evaluation of progress towards goal: Problem: Bed Mobility Dates: Start: 03/04/24 Disciplines: PT Goal: Patient will perform bed mobility with Modified [place] Dates: Start: 03/04/24 Expected End: 03/18/24 Description: Goal Description: Disciplines: PT Outcomes Date/Time User Outcome 03/05/241535 Winnie Handy PTA Progressing Goal Note filed on 03/05/24 153 by Winnie Handy PTA Evaluation of progress towards goal: Problem: Gait Dates: Start: 03/04/24 Disciplines: PT Goal: Patient will perform gait with Modified [place] Dates: Start: 03/04/24 Expected End: 03/18/24 Description: With__RW__,__>50__feet Goal Description: Disciplines: PT Outcomes Date/Time User Outcome 03/05/241535 Winnie Handy PTA Progressing Goal Note filed on 03/05/24 153 by Winnie Handy PTA Evaluation of progress towards goal: Problem: Sitting Balance Dates: Start: 03/04/24 Disciplines: PT Goal: Improve balance to good Dates: Start: 03/04/24 Expected End: 03/18/24 Description: Static Dynamic Disciplines: PT Outcomes Date/Time User Outcome 03/05/241535 Winnie Handy PTA Progressing Goal Note filed on 03/05/241535 by Winnie Handy PTA Evaluation of progress towards goal: Problem: Standing Balance Dates: Start: 03/04/24 Disciplines: PT Goal: Improve balance to good Dates: Start: 03/04/24 Expected End: 03/18/24 Description: With bilat UE support Disciplines: PT Outcomes Date/Time User Outcome 03/05/241535 Winnie Handy PTA Progressing Goal Note filed on 03/05/241535 by Winnie Handy PTA Evaluation of progress towards goal: Problem: Strength Dates: Start: 03/04/24 Disciplines: PT Goal: Improve strength Dates: Start: 03/04/24 Expected End: 03/18/24 Description: Of extremity/ location: To facilitate: Disciplines: PT Outcomes Date/Time User Outcome 03/05/241535 Winnie Handy PTA Progressing Goal Note filed on 03/05/241535 by Winnie Handy PTA Evaluation of progress towards goal: Problem: Transfers Dates: Start: 03/04/24 Disciplines: PT Goal: Patient will perform transfers with Modified [place] Dates: Start: 03/04/24 Expected End: 03/18/24 Description: Goal Description:Patient to perform mobility with good safety awareness. Disciplines: PT Outcomes Date/Time User Outcome 03/05/241535 Winnie Handy PTA Progressing Goal Note filed on 03/05/241535 by Winnie Handy PTA Evaluation of progress towards goal: Physical Therapy Care Plan (Resolved) There are no resolved problems. Principal Problem: Viral meningitis Active Problems: Seizure ([facility]) Cosigned by Gissell Friend PT at 03/06/2024 1:16 PM EDT Associated attestation - Gissell Friend PT - 03/06/2024 1:16 PM EDT I have reviewed and agree with this note and education documentation for this visit. * Plan of Care - Gayla Mcwilliams RN - 03/05/2024 10:55 AM EDT Problem: Pain Goal: Patient goal is pain score less than 4, able to rest, and participant in treatment plan as appropriate Description: INTERVENTIONS: 1. Encourage patient or legal wire rope sales representative to report early pain and ask for pain medicine when needed 2. Assess pain using appropriate pain scale and include the scale used when documenting 3. Administer analgesics based on type and severity of pain and evaluate response within appropriate time frame 4. Implement non-pharmacological measures as appropriate and evaluate response 5. Consider cultural and social influences on pain and pain management 6. Notify LIP if interventions ineffective or patient reports new pain 7. Monitor vital signs including pulse ox, end-tidal CO2 based on pain intervention 8. Reassess pain per policy 9. Teach patient or legal wire rope sales representative interventions for comforting Outcome: Progressing Note: Evaluation of progress towards goal: pt has denied pain this shift will continue to monitor and use nonpharmacologic measures to relieve mild discomfort Problem: Safety Goal: Patient will be injury free during hospitalization Description: INTERVENTIONS: 1. Assess patient's risk for falls and implement fall prevention plan of care per policy 2. Provide and maintain a safe environment 3. Proper use of double Identifiers 4. Medication administration using the 5 rights 5. Hand hygiene 6. Specimens are labeled at the bedside 7. Instruct patient/ patient wire rope sales representative about use of safety devices 8. Include patient/ patient wire rope sales representative in decisions related to safety Outcome: Progressing Note: Evaluation of progress towards goal: pt has been injury free this shift. Will continue to monitor and keep items in reach and educate to use the call button when in need of anything Problem: Infection Goal: Absence of infection during hospitalization Description: Interventions: 1. Assess and monitor for signs and symptoms of infection 2. Monitor lab/diagnostic results 3. Monitor all insertion sites i.e., indwelling lines, tubes and drains 4. Monitor endotracheal (as able) and nasal secretions for changes in amount and color 5. Administer medications as ordered 6. Instruct and encourage patient and family to use good hand hygiene technique 7. Identify and instruct patient/patient wire rope sales representative in use of appropriate isolation precautionsfor identified infection/symptoms 8. 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 Encourage and monitor nutritional status daily and consult mock up builder if indicated 10. Implement neutropenic guidelines as needed 11. Review exposure to history of communicable disease and recent travel history on admission 12. Encourage annual influenza vaccine 13. Encourage pneumonia vaccine Outcome: Progressing Note: Evaluation of progress towards goal: hand hygiene is preformed when entering and leaving the room. And no new s/s of infection are present. Will continue to monitor Problem: Knowledge Deficit Goal: Patient/patient wire rope sales representative demonstrates understanding of disease process, treatment plan,medications, and discharge instructions Description: INTERVENTIONS 1. Complete learning assessment and assess knowledge base 2. Provide teaching at level of understanding 3. Provide teaching via preferred learning method(s) Outcome: Progressing Note: Evaluation of progress towards goal: pt verbalized and demonstrates understanding of plan of care and medications being given Problem: Discharge Planning Goal: Discharge to post-acute care, other facility, or home with appropriate resources Description: Patient's goal is: INTERVENTIONS 1. Conduct assessment to determine patient/family and health care team treatment goals, and need for post-acute services based on payer coverage, community resources, and patient preferences, and barriers to discharge 2. Coordinate with Social work, Care Navigation, and Utilization Review to arrange appropriate level of services according to patient's needs based on patient preference and payer coverage in collaboration with the physician and health care team 3. Address psychosocial, clinical, and financial barriers to discharge as identified in assessment in conjunction with the patient/family and health care team 4. Consult appropriate ancillary services (i.e.. PT/OT/ST, etc) as needed 5. Communicate with and update the patient/family, physician, and health care team regarding progress on the discharge plan 6. Identify discharge learning needs (meds, wound care, etc). 7. Arrange for needed discharge transportation as appropriate Outcome: Progressing Note: Evaluation of progress towards goal: pt will be discharged when deemed appropriate. Will continue to answer follow up questions Problem: Moderate - High Risk Fall Score Description: [place] Fall Score of =/> 25 or indicated by [facility] Assessment Goal: Patient should be free from fall Description: Interventions: 1. [place] to environment 2. Hourly rounds addressing the 4 P's (Pain, Positioning, Possessions, Potty) 3. Clear area of hazards (spills, clutter, electrical cords, unnecessary equipment) 4. Place equipment (bed & TV controls, call light, phone, urinal) within reach 5. Encourage patient to wear glasses and hearing aides as appropriate 6. Maintain bed in lowest position 7. Lock wheels on bed/wheelchair 8. Provide adequate lighting, including night light 9. Assess need for additional bedding, food/fluids, pain med's prior to sleep/routinely 10. Provide gripper slippers or personal non-skid footwear 11. Teach patient and patient wire rope sales representative to maintain environment for safety and engage in all aspects of fall prevention program 12. Remind patient to call for help before getting out of bed 13. Initiate bed/chair/exit alarms supportive devices as appropriate, (chair wedge, no-skid floor mat, raised edge mattress, hip protectors) 14. Locate patient bed assignment for optimal visualization 15. Evaluate and identify Safe Patient Handling Equipment needs 16. Provide supervision when out of bed or chair 17. Utilize gait belt as needed to assist with ambulation 18. Place adaptive equipment (cane, walker) within reach 19. Request patient wire rope sales representative bring adaptive equipment/mobility aids from home or obtain and provide as needed 20. Consult pharmacy regarding effects of med's affecting mobility, cognition, and alternatives 21. Obtain physician order for PT if risk factors associated with mobility are present 22. Obtain physician order for OT as appropriate 23. Utilize diversional activities 24. Educate patient and patient wire rope sales representative how to maintain a safe environment during visitationtimes (notify nurse prior to leaving bedside) 25. Consider appropriateness of medical or non-medical staffing coordinator 26. Set up voiding schedule as appropriate (every 2 hours) Outcome: Progressing Note: Evaluation of progress towards goal: Pt has been fall free this shift. Will continue to educate pt on fall risk and assess needs before leaving the room. Items and call light are within reach Problem: Urinary Incontinence Goal: Perineal skin integrity is maintained or improved Description: INTERVENTIONS 1. Assess genitourinary system, perineal skin, labs (urinalysis), and history of incontinence to include past management, aggravating, and alleviating factors 2. Keep skin clean and dry 3. Apply skin protectant 4. Develop skin care regimen 5. Provide privacy when changing patients incontinence device to maintain their dignity 6. Consider placing an indwelling catheter 7. Collaborate with interdisciplinary team and initiate plans and interventions as needed Outcome: Progressing Note: Evaluation of progress towards goal: patient bladder scanned and shows retention, planned to straight cath and monitor urine output Problem: Multi-Drug Resistant Organism / Rule-Out Infection Prevention Goal: Prevent transmission of infection Description: INTERVENTIONS 1. Place patient in private room or in room with patient with same disease 2. Discard single-use items 3. Clean reusable equipment between patients 4. Wear gloves for direct and indirect contact with patient or contaminants 5. Change gloves between tasks and procedures 6. Wash hands before and after caring for each patient 7. Wear appropriate personal protective equipment in relation to the indicated isolation type 8. Place appropriate isolation signage on patient's door 9. Provide patient/ patient wire rope sales representative with isolation education. Outcome: Progressing Note: Evaluation of progress towards goal: patient currently on IV antibiotics for positive LP result * Plan of Care - Tashia Redding RN - 03/04/2024 11:33 PM EDT Problem: Pain Goal: Patient goal is pain score less than 4, able to rest, and participant in treatment plan as appropriate Description: INTERVENTIONS: 1. Encourage patient or legal wire rope sales representative to report early pain and ask for pain medicine when needed 2. Assess pain using appropriate pain scale and include the scale used when documenting 3. Administer analgesics based on type and severity of pain and evaluate response within appropriate time frame 4. Implement non-pharmacological measures as appropriate and evaluate response 5. Consider cultural and social influences on pain and pain management 6. Notify LIP if interventions ineffective or patient reports new pain 7. Monitor vital signs including pulse ox, end-tidal CO2 based on pain intervention 8. Reassess pain per policy 9. Teach patient or legal wire rope sales representative interventions for comforting Outcome: Progressing Note: Evaluation of progress towards goal: Pt. Pain well controlled with current management. Problem: Safety Goal: Patient will be injury free during hospitalization Description: INTERVENTIONS: 1. Assess patient's risk for falls and implement fall prevention plan of care per policy 2. Provide and maintain a safe environment 3. Proper use of double Identifiers 4. Medication administration using the 5 rights 5. Hand hygiene 6. Specimens are labeled at the bedside 7. Instruct patient/ patient wire rope sales representative about use of safety devices 8. Include patient/ patient wire rope sales representative in decisions related to safety Outcome: Progressing Note: Evaluation of progress towards goal: Pt. Remains injury free this hospitalization, safety precautions maintained. Problem: Moderate - High Risk Fall Score Description: [place] Fall Score of =/> 25 or indicated by [facility] Assessment Goal: Patient should be free from fall Description: Interventions: 1. [place] to environment 2. Hourly rounds addressing the 4 P's (Pain, Positioning, Possessions, Potty) 3. Clear area of hazards (spills, clutter, electrical cords, unnecessary equipment) 4. Place equipment (bed & TV controls, call light, phone, urinal) within reach 5. Encourage patient to wear glasses and hearing aides as appropriate 6. Maintain bed in lowest position 7. Lock wheels on bed/wheelchair 8. Provide adequate lighting, including night light 9. Assess need for additional bedding, food/fluids, pain med's prior to sleep/routinely 10. Provide gripper slippers or personal non-skid footwear 11. Teach patient and patient wire rope sales representative to maintain environment for safety and engage in all aspects of fall prevention program 12. Remind patient to call for help before getting out of bed 13. Initiate bed/chair/exit alarms supportive devices as appropriate, (chair wedge, no-skid floor mat, raised edge mattress, hip protectors) 14. Locate patient bed assignment for optimal visualization 15. Evaluate and identify Safe Patient Handling Equipment needs 16. Provide supervision when out of bed or chair 17. Utilize gait belt as needed to assist with ambulation 18. Place adaptive equipment (cane, walker) within reach 19. Request patient wire rope sales representative bring adaptive equipment/mobility aids from home or obtain and provide as needed 20. Consult pharmacy regarding effects of med's affecting mobility, cognition, and alternatives 21. Obtain physician order for PT if risk factors associated with mobility are present 22. Obtain physician order for OT as appropriate 23. Utilize diversional activities 24. Educate patient and patient wire rope sales representative how to maintain a safe environment during visitationtimes (notify nurse prior to leaving bedside) 25. Consider appropriateness of medical or non-medical staffing coordinator 26. Set up voiding schedule as appropriate (every 2 hours) Outcome: Progressing Note: Evaluation of progress towards goal: Pt. Remains fall free this hospitalization. Safety precautions maintained. * Discharge Planning Note - Danyelle Frye - 03/04/2024 4:53 PM EDT DISCHARGE PLANNING NOTE Referral sent to. [facility] in [place], [place] (P# ; F# ) * Discharge Planning Note - Lisa Guzman RN - 03/04/2024 4:20 PM EDT DISCHARGE PLANNING NOTE Follow-up Discharge Planning Progress Note Per RN during discharge transition rounds, barriers to discharge are: Hypertensive today, CXR, cultures pending. Discharge Plan: Home with home care. Therapy recommending [facility]. Patient declined. Patient agree to home care. [facility] choices. [employer] Car [employer]er informed will have referral sent, however need two additional choices. Will follow up tomorrow for additional choices. Care Navigation will continue to follow for any discharge needs. - Lisa Guzman RN 03/04/24 4:26 PM * PT/OT/PUTTY GLAZER - ROXANNE Raymundo - 03/04/2024 1:18 PM EDT Occupational Therapy Evaluation Discharge Recommendations OT Recommendations : [facility] SNF/ECF Comments: SNF recommended to improve pt strength, safety, balance and activity tolerance during ADL/mobility tasks prior to going home alone. 6 Clicks: Daily Activity Putting on and taking off regular lower body clothing?: A lot Bathing (including washing, rinsing, drying)?: A lot Toileting, which includes using toilet, bedpan or urinal?: A lot Putting on and taking off regular upper body clothing?: A little Taking care of personal grooming such as brushing teeth?: A little Eating meals?: None Scoring Daily Activity Raw Score: 16 CMS G Code Modifier: CK Therapy Plan Need for skilled Occupational Therapy to address deficits in ADL independence and functional mobility due to a status decline resulting from admission 03/02 with c/o AMS / photophobia following shingles rash MRI brain - White matter changes of chronic ischemic small vessel disease with 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 There is no evidence for an acute infarct. CXR -mild central vascular congestion aggravated by low long volume MRI brain (-) acute IR guided LP 03/04 - varicella zoster Past Medical History: Diagnosis Date Hypertension Past Surgical History: Procedure Laterality Date BACK SURGERY OT Treatment/Interventions: ADL retraining, Functional transfer training, UE strengthening/ROM, Endurance training, Patient/family training, Equipment eval/education, Balance, Bed mobility, Compensatory technique education, Functional activities OT Frequency: 4-5days/week OT Duration: LOS Assessment Patient Assessment Therapy Problem List: Decreased ADL status, Decreased balance, Abnormal posture, Decreased endurance, Decreased high-level ADLs, Decreased self-care trans, Decreased safe judgement during ADL, Decreased mobility, Decreased UE strength Patient Response to Treatment: Tolerated evaluation without adverse reaction, Slow progress, decreased activity tolerance Mood/Affect: Appropriate for circumstances Rehab Prognosis: Good, With continued OT status post acute discharge Visit RN Communication: Yes Medical Record Reviewed: Yes OT Type of Visit: Evaluation Precautions Activity: early mobility pass, ok per GIORGIO Moreno for OT evaluation, escalated evaluation for discharge stating that supine duration s/p lumbar puncture was complete and pt ok for OOB activity. Equipment: RW, gait belt Telemetry/Flow Worker: No Oxygen Used: room air Other: Fall risk, LBP, contact precautions for varicella zoster Pain Assessment Pain Assessment: 0-10 Pain Score: 4 Pain Type: Chronic pain Pain Location: Back Pain Intervention(s): Repositioned, Ambulation/increased activity Response to Interventions: Pain unchanged Home Living Type of Home: House Home Layout: One level Stairs to Enter: 2 Hand Rails: None Bathroom Shower/Tub: Walk-in shower Bathroom Toilet: Raised (support nearby) Bathroom Equipment: Hand-held shower, Grab bars in shower, Built-in shower seat Home Equipment: Rolling walker Other : Pt using RW [employer]PER[employer] Prior Function Lives With: Alone Receives Help From: Family, Neighbor (son) Level of Mobility: Independent with ADLs and functional transfers or gait Homemaking Assistance: Needs assistance Yard Work: Total assist (assist from neighbor) ADL / IADL Hand Dominance: Right Eating Assistance: Independent Grooming Assistance: Contact guard assist Bathing/Showering Assistance: Mod assist Toilet/Commode Assistance: Mod assist Toilet/Commode Deficit: Verbal cueing, Grab bar use, Perineal hygiene UE Dressing Assistance: Min assist LE Dressing Assistance: Mod assist Other: Limited in ADL participation due to impaired strength, safety, balance and activity tolerance. Required assist for holding gown out of way, able to complete pericare after urination seated butrequired assist in standing for pericare of buttocks after pt believed she had a bowel movement. VCfor safety throughout. Home Management - IADL Other: Limited in ADL participation due to impaired strength, safety, balance and activity tolerance. Required assist for holding gown out of way, able to complete pericare after urination seated butrequired assist in standing for pericare of buttocks after pt believed she had a bowel movement. VCfor safety throughout. Hearing / Speech / Vision Hearing: Hard of hearing/hearing concerns Speech: Within Functional Limits Current Vision: Wears glasses all the time (bifocals) Cognition Overall Cognitive Status: Exceptions to Within Functional Limits Arousal/Alertness: Appropriate responses to stimuli Attention Span: Attends with cues to redirect Following Commands: Follows one step commands with repetition, Follows one step commands with increased time Safety Judgment: Decreased awareness of need for safety, Decreased awareness of need for assistance Awareness of Errors: Assistance required to identify errors made, Assistance required to correct errors made Insight of Deficits: Decreased awareness of deficits Problem Solving: Assistance required to identify errors made, Assistance required to generate solutions Sensation Overall Sensation Status: Within Functional Limits (pt denies n+t) Bed Mobility Supine to Sit: Stand by assist Sit to Supine: Stand by assist Other: HOB flat to complete, increased time and effort. Transfers Sit to Stand: Min assist Stand to Sit: Min assist Toilet Transfers: Min assist (grab bar use) Other: VC for safe hand placement during transfers, use of RW in standing. Increased time/effort toachieve stand. Pt not following cues well for stand to sit transition, attempting to sit prior to being fully backed up to bed. Gait Pattern: Decreased gera, Forward trunk Gait Assistance: Min assist Assistive Device: Rolling walker Gait Distance: 10 ft x 2 Limiting Factors to Gait: Weakness, Fatigue, Decreased safety Other: Pt completed mobility <> restroom, pt attempting to get OOB to use toilet on arrival. Unsteady, no major LOB. VC for posture and safety. SOB with minimal activity. Balance Balance Evaluation: Exceptions to Functional Limits Sitting Balance: Static: Good (-) Sitting Balance: Dynamic: Fair Standing Balance: Static: Fair (-) Standing Balance: Dynamic: Poor (+) Other: BUE support on RW for standing/mobility tasks. Able to sit with back unsupported EOB and on toilet static, no LOB. Pt unsteady while up on feet. RUE Assessment: (Grossly 4-/5) LUE Assessment: (Grossly 4-/5) Activity Tolerance Endurance: Tolerates <30 minutes activity WITHOUT vital sign changes Other: Limited by SOB and fatigue. Returned supine after restroom. Plan Occupational Therapy Care Plan Occupational Therapy Care Plan (Active) Template: OT - Occupational Therapy Problem: Activity Tolerance Dates: Start: 03/04/24 Disciplines: OT Goal: Tolerate 30 minutes of activity WITH rest breaks Dates: Start: 03/04/24 Expected End: 03/25/24 Description: Goal Description: Disciplines: OT Problem: Bed Mobility Dates: Start: 03/04/24 Disciplines: OT Goal: Patient will perform bed mobility with Modified [place] Dates: Start: 03/04/24 Expected End: 03/25/24 Description: Goal Description: sup to sit and sit to sup for EOB sitting during functional activity Disciplines: OT Problem: Functional Mobility Dates: Start: 03/04/24 Disciplines: OT Goal: Patient will perform functional mobility with Supervision Dates: Start: 03/04/24 Expected End: 03/25/24 Description: Goal Description: use of walker and good safety Disciplines: OT Problem: Other (Customize) Dates: Start: 03/04/24 Disciplines: OT Goal: Improve Dates: Start: 03/04/24 Expected End: 03/25/24 Description: Pt will demo all ADLs mod I/IND using AE/DME/compensatory strategies PRN and good safety. Disciplines: OT Problem: Sitting Balance Dates: Start: 03/04/24 Disciplines: OT Goal: Improve balance to good Dates: Start: 03/04/24 Expected End: 03/25/24 Description: Pt will demo good unsupported sitting balance 100% of the time during ADL/functional reaching tasks. Disciplines: OT Problem: Standing Balance Dates: Start: 03/04/24 Disciplines: OT Goal: Improve balance to good Dates: Start: 03/04/24 Expected End: 03/25/24 Description: Pt will demo good standing balance with use of UE support PRN for 5+ minutes for increased participation in ADLs. Disciplines: OT Problem: Strength Dates: Start: 03/04/24 Disciplines: OT Goal: Improve strength Dates: Start: 03/04/24 Expected End: 03/25/24 Description: Pt will demo good understanding of BUE HEP for increased strength to 5/5 during ADLs. Disciplines: OT Problem: Toilet Transfers Dates: Start: 03/04/24 Disciplines: OT Goal: Patient will perform toilet transfers with Supervision Dates: Start: 03/04/24 Expected End: 03/25/24 Description: Goal Description: Disciplines: OT Problem: Transfers Dates: Start: 03/04/24 Disciplines: OT Goal: Patient will perform transfers with Supervision Dates: Start: 03/04/24 Expected End: 03/25/24 Description: Goal Description: Sit to stand, stand to sit transfers with good safety and use of AD PRN Disciplines: OT Occupational Therapy Care Plan (Resolved) There are no resolved problems. Principal Problem: Viral meningitis Active Problems: Seizure ([facility]) * PT/OT/PUTTY GLAZER - Nicholas Lang, PT - 03/04/2024 1:01 PM EDT Physical Therapy Evaluation Discharge Recommendations PT Recommendations: [facility] SNF/ECF Comments: Pt would benefit from further skilled therapy services to address deficits in functional strength, activity tolerance and decreased functional independence with mobility s/p acute illness and prolonged immobility. 6 Clicks: Basic Mobility Turning from your back to your side while in a flat bed without using bed rails?: A little Moving from lying on your back to sitting on side of flat bed without using bed rails?: A little Moving to and from bed to a chair (including w/c)?: A little Standing up from a chair using your arms (e.g. w/c or bedside chair)?: A little To walk in hospital room?: A lot Climbing 3-5 steps with a railing?: A lot Scoring 6 Clicks: Basic Mobility Raw Score: 16 [facility] G Code Modifier: CK Therapy Plan Need for skilled Physical Therapy to address deficits in functional mobility due to a status decline resulting from admission 03/02 with c/o AMS / photophobia following shingles flare Concern for meningitis MRI brain (-) acute LP 03/04 - results pending PT Treatment/Interventions: ADL retraining, Functional transfer training, LE strengthening/ROM, Endurance training, Patient/family training, Equipment eval/education, Balance, Bed mobility, Gait training, Functional activities PT Frequency: 4-5days/week PT Duration: length of stay Patient Response to Treatment: Tolerated evaluation without adverse reaction Past Medical History: Diagnosis Date Hypertension Past Surgical History: Procedure Laterality Date BACK SURGERY Assessment Patient Assessment Therapy Problem List: Decreased ADL status, Decreased balance, Decreased endurance, Decreased grossmotor, Decreased high-level ADLs, Decreased mobility, Decreased safe judgement during ADL, Decreased LE strength Patient Response to Treatment: Tolerated evaluation without adverse reaction Mood/Affect: Appropriate for circumstances Rehab Prognosis: Good, With continued PT status post acute discharge Visit RN Communication: Yes Medical Record Reviewed: Yes PT Type of Visit: Evaluation Precautions Activity: OK for PT evaluation per RN Tiffanie, escalated evaluation for discharge stating that supineduration s/p lumbar puncture was clear and patient okay for OOB activity. Equipment: RW, gait belt Telemetry/Flow Worker: No Oxygen Used: room air Other: Fall risk, LBP, droplet for chicken pox Pain Assessment Pain Assessment: 0-10 Pain Score: 4 Pain Type: Chronic pain Pain Location: Back, Shoulder Pain Orientation: Lower, Right Pain Intervention(s): Repositioned, Ambulation/increased activity, Emotional support Response to Interventions: Pain unchanged Home Living Type of Home: House Home Layout: One level Stairs to Enter: 2 Hand Rails: None Bathroom Shower/Tub: Walk-in shower Bathroom Toilet: Raised (support near) Bathroom Equipment: Grab bars in shower, Built-in shower seat, Hand-held shower Home Equipment: Rolling walker Other : Pt reports use of RW at baseline for mobility Prior Function Lives With: Alone Receives Help From: Family, Neighbor (local son, grandson with minimal support) Level of Mobility: Independent with ADLs and functional transfers or gait Homemaking Assistance: Needs assistance Yard Work: Total assist Other: Pt reports increasing difficulty with household IALDs, reports limited support from family available. ADL / IADL Hand Dominance: Right Hearing / Speech / Vision Hearing: Hard of hearing/hearing concerns Speech: Within Functional Limits Current Vision: Wears glasses all the time (bifocals) Cognition Overall Cognitive Status: Within Functional Limits Orientation Level: Oriented X4 Sensation Overall Sensation Status: (pt denies numbness / tingling) Bed Mobility Supine to Sit: Min assist Sit to Supine: Min assist Other: increased time / effort with cues for log roll technique and to avoid valsalva Transfers Sit to Stand: Min assist Stand to Sit: Min assist Other: increased time / effort Gait Base of Support: Within Functional Limits Pattern: Decreased gera, Forward trunk, R Decreased foot clearance, L Decreased foot clearance Gait Assistance: Min assist Assistive Device: Rolling walker Gait Distance: 15ft x 2 Other: Pt requesting to use restroom upon therapist arrival into room. Pt unsteady without gross LOB while ambulating. Balance Sitting Balance: Static: Good Sitting Balance: Dynamic: Fair Standing Balance: Static: Poor Standing Balance: Dynamic: Poor Other: standing balance with bilat UE support RLE Assessment: Exceptions to WFL (generalized weakness) LLE Assessment: Exceptions to WFL (generalized weakness) Activity Tolerance Endurance: Tolerates <30 minutes activity WITHOUT vital sign changes Other: pt fatigues quickly, returned to supine after using restroom Plan Physical Therapy Care Plan Physical Therapy Care Plan (Active) Template: PT - Physical Therapy Problem: Activity Tolerance Dates: Start: 03/04/24 Disciplines: PT Goal: Tolerate > 30 minutes of activity WITH rest breaks Dates: Start: 03/04/24 Expected End: 03/18/24 Description: Goal Description:Patient to perform functional range / strength exercises to improve functional strength, activity tolerance and balance for improved independence and safety with mobility. Disciplines: PT Problem: Bed Mobility Dates: Start: 03/04/24 Disciplines: PT Goal: Patient will perform bed mobility with Modified [place] Dates: Start: 03/04/24 Expected End: 03/18/24 Description: Goal Description: Disciplines: PT Problem: Gait Dates: Start: 03/04/24 Disciplines: PT Goal: Patient will perform gait with Modified [place] Dates: Start: 03/04/24 Expected End: 03/18/24 Description: With__RW__,__>50__feet Goal Description: Disciplines: PT Problem: Sitting Balance Dates: Start: 03/04/24 Disciplines: PT Goal: Improve balance to good Dates: Start: 03/04/24 Expected End: 03/18/24 Description: Static Dynamic Disciplines: PT Problem: Standing Balance Dates: Start: 03/04/24 Disciplines: PT Goal: Improve balance to good Dates: Start: 03/04/24 Expected End: 03/18/24 Description: With bilat UE support Disciplines: PT Problem: Strength Dates: Start: 03/04/24 Disciplines: PT Goal: Improve strength Dates: Start: 03/04/24 Expected End: 03/18/24 Description: Of extremity/ location: To facilitate: Disciplines: PT Problem: Transfers Dates: Start: 03/04/24 Disciplines: PT Goal: Patient will perform transfers with Modified [place] Dates: Start: 03/04/24 Expected End: 03/18/24 Description: Goal Description:Patient to perform mobility with good safety awareness. Disciplines: PT Physical Therapy Care Plan (Resolved) There are no resolved problems. Principal Problem: Viral meningitis Active Problems: Seizure (CMS-HCC) * Perioperative Nursing Note - Marlee Gallegos RN - 03/04/2024 9:49 AM EDT Report called to floor RN. * Perioperative Nursing Note - Marlee Gallegos RN - 03/04/2024 9:45 AM EDT Pt received Post-Op, POC discussed. * PT/OT/PUTTY GLAZER - Nicholas Lang PT - 03/04/2024 9:03 AM EDT Physical Therapy CANCEL - Deferred (Pt undergoing LP in IR at this time) * Perioperative Nursing Note - Marlee Gallegos RN - 03/04/2024 8:31 AM EDT Recieved to IVRR, POC discussed. * PT/OT/PUTTY GLAZER - ROXANNE Raymundo - 03/04/2024 8:05 AM EDT Occupational Therapy (P) CANCEL - Deferred (Pt going down for LP by IR) * Plan of Care - Tiffanie Smith RN - 03/04/2024 7:47 AM EDT Problem: Pain Goal: Patient goal is pain score less than 4, able to rest, and participant in treatment plan as appropriate Description: INTERVENTIONS: 1. Encourage patient or legal wire rope sales representative to report early pain and ask for pain medicine when needed 2. Assess pain using appropriate pain scale and include the scale used when documenting 3. Administer analgesics based on type and severity of pain and evaluate response within appropriate time frame 4. Implement non-pharmacological measures as appropriate and evaluate response 5. Consider cultural and social influences on pain and pain management 6. Notify LIP if interventions ineffective or patient reports new pain 7. Monitor vital signs including pulse ox, end-tidal CO2 based on pain intervention 8. Reassess pain per policy 9. Teach patient or legal wire rope sales representative interventions for comforting Outcome: Progressing Note: Evaluation of progress towards goal: Mechanical Car Checker assessed pt pain in the beginning and throughout shift. Pt stated a tolerable pain goal was zero. Mechanical Car Checker medicated pt pain per order. Will continue to monitor. Problem: Safety Goal: Patient will be injury free during hospitalization Description: INTERVENTIONS: 1. Assess patient's risk for falls and implement fall prevention plan of care per policy 2. Provide and maintain a safe environment 3. Proper use of double Identifiers 4. Medication administration using the 5 rights 5. Hand hygiene 6. Specimens are labeled at the bedside 7. Instruct patient/ patient wire rope sales representative about use of safety devices 8. Include patient/ patient wire rope sales representative in decisions related to safety Outcome: Progressing Note: Evaluation of progress towards goal: patient remains free from injury at this time. Safety precautions in place. Problem: Infection Goal: Absence of infection during hospitalization Description: Interventions: 1. Assess and monitor for signs and symptoms of infection 2. Monitor lab/diagnostic results 3. Monitor all insertion sites i.e., indwelling lines, tubes and drains 4. Monitor endotracheal (as able) and nasal secretions for changes in amount and color 5. Administer medications as ordered 6. Instruct and encourage patient and family to use good hand hygiene technique 7. Identify and instruct patient/patient wire rope sales representative in use of appropriate isolation precautionsfor identified infection/symptoms 8. 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 Encourage and monitor nutritional status daily and consult mock up builder if indicated 10. Implement neutropenic guidelines as needed 11. Review exposure to history of communicable disease and recent travel history on admission 12. Encourage annual influenza vaccine 13. Encourage pneumonia vaccine Outcome: Progressing Note: Evaluation of progress towards goal: Mechanical Car Checker assessed pt risk for infection in the beginning and throughout shift. Pt remains afebrile. Will continue to monitor. Problem: Knowledge Deficit Goal: Patient/patient wire rope sales representative demonstrates understanding of disease process, treatment plan,medications, and discharge instructions Description: INTERVENTIONS 1. Complete learning assessment and assess knowledge base 2. Provide teaching at level of understanding 3. Provide teaching via preferred learning method(s) Outcome: Progressing Note: Evaluation of progress towards goal: Mechanical Car Checker educated pt on admission disease, medications, treatment, and discharge planning. Will continue to monitor. Problem: Moderate - High Risk Fall Score Description: [place] Fall Score of =/> 25 or indicated by [facility] Assessment Goal: Patient should be free from fall Description: Interventions: 1. [place] to environment 2. Hourly rounds addressing the 4 P's (Pain, Positioning, Possessions, Potty) 3. Clear area of hazards (spills, clutter, electrical cords, unnecessary equipment) 4. Place equipment (bed & TV controls, call light, phone, urinal) within reach 5. Encourage patient to wear glasses and hearing aides as appropriate 6. Maintain bed in lowest position 7. Lock wheels on bed/wheelchair 8. Provide adequate lighting, including night light 9. Assess need for additional bedding, food/fluids, pain med's prior to sleep/routinely 10. Provide gripper slippers or personal non-skid footwear 11. Teach patient and patient wire rope sales representative to maintain environment for safety and engage in all aspects of fall prevention program 12. Remind patient to call for help before getting out of bed 13. Initiate bed/chair/exit alarms supportive devices as appropriate, (chair wedge, no-skid floor mat, raised edge mattress, hip protectors) 14. Locate patient bed assignment for optimal visualization 15. Evaluate and identify Safe Patient Handling Equipment needs 16. Provide supervision when out of bed or chair 17. Utilize gait belt as needed to assist with ambulation 18. Place adaptive equipment (cane, walker) within reach 19. Request patient wire rope sales representative bring adaptive equipment/mobility aids from home or obtain and provide as needed 20. Consult pharmacy regarding effects of med's affecting mobility, cognition, and alternatives 21. Obtain physician order for PT if risk factors associated with mobility are present 22. Obtain physician order for OT as appropriate 23. Utilize diversional activities 24. Educate patient and patient wire rope sales representative how to maintain a safe environment during visitationtimes (notify nurse prior to leaving bedside) 25. Consider appropriateness of medical or non-medical staffing coordinator 26. Set up voiding schedule as appropriate (every 2 hours) Outcome: Progressing Note: Evaluation of progress towards goal: Mechanical Car Checker assessed pt fall precautions in the beginning andthroughout shift. Pt room left free of clutter, pt has all belongings and call light within reach. Will continue to monitor. * Query Response - Aga Mendoza MD - 03/04/2024 6:59 AM EDT Query Response Note AUTOMATED QUERY TEXT: Type of Encephalopathy: This query seeks further clarification of documentation to reflect all conditions that you are monitoring, evaluating, treating or that extend hospitalization or utilize additional resources. Please utilize your independent clinical judgment when addressing the question(s) below. Please provide further specificity, if known. Clinical indicators include: encephalopathy Options provided: -- Anoxic/hypoxic encephalopathy -- Metabolic encephalopathy -- Toxic encephalopathy -- Hepatic encephalopathy -- Hypertensive encephalopathy -- Other - I will add my own diagnosis -- Dismiss - Not applicable / Not valid AUTOMATED QUERY RESPONSE TEXT: Provider dismissed this query because it was not applicable to the patient or not a valid query. No mention of encephalopathy as diagnosis, was part of EEG report only Electronically signed by: Aga Mendoza MD 03/04/2024 6:57 AM * Plan of Care - Jaimee Hobson RN - 03/03/2024 8:24 PM EDT Problem: Safety Goal: Patient will be injury free during hospitalization Description: INTERVENTIONS: 1. Assess patient's risk for falls and implement fall prevention plan of care per policy 2. Provide and maintain a safe environment 3. Proper use of double Identifiers 4. Medication administration using the 5 rights 5. Hand hygiene 6. Specimens are labeled at the bedside 7. Instruct patient/ patient wire rope sales representative about use of safety devices 8. Include patient/ patient wire rope sales representative in decisions related to safety Outcome: Progressing Note: Evaluation of progress towards goal: Patient has remained free of falls throughout this shift. Patient uses call light appropriately, non-slip socks are on, bed locked and in lowest position, two side rails up, and bedside table within reach. Fall risk wristband on. Bed alarm on and working. Problem: Infection Goal: Absence of infection during hospitalization Description: Interventions: 1. Assess and monitor for signs and symptoms of infection 2. Monitor lab/diagnostic results 3. Monitor all insertion sites i.e., indwelling lines, tubes and drains 4. Monitor endotracheal (as able) and nasal secretions for changes in amount and color 5. Administer medications as ordered 6. Instruct and encourage patient and family to use good hand hygiene technique 7. Identify and instruct patient/patient wire rope sales representative in use of appropriate isolation precautionsfor identified infection/symptoms 8. 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 Encourage and monitor nutritional status daily and consult mock up builder if indicated 10. Implement neutropenic guidelines as needed 11. Review exposure to history of communicable disease and recent travel history on admission 12. Encourage annual influenza vaccine 13. Encourage pneumonia vaccine Outcome: Progressing Note: Evaluation of progress towards goal: Patient has remained afebrile. WBC and vital signs monitored. Patient has not shown any additional signs of infection at this time. Problem: Pain Goal: Patient goal is pain score less than 4, able to rest, and participant in treatment plan as appropriate Description: INTERVENTIONS: 1. Encourage patient or legal wire rope sales representative to report early pain and ask for pain medicine when needed 2. Assess pain using appropriate pain scale and include the scale used when documenting 3. Administer analgesics based on type and severity of pain and evaluate response within appropriate time frame 4. Implement non-pharmacological measures as appropriate and evaluate response 5. Consider cultural and social influences on pain and pain management 6. Notify LIP if interventions ineffective or patient reports new pain 7. Monitor vital signs including pulse ox, end-tidal CO2 based on pain intervention 8. Reassess pain per policy 9. Teach patient or legal wire rope sales representative interventions for comforting Note: Evaluation of progress towards goal: Patient encouraged to report pain occurrence. Pain assessed using 0-10 pain scale. Patient reports no pain at this time. PRN pain medication ordered if needed. * Plan of Care - Radha Rico RN - 03/03/2024 6:40 PM EDT Problem: Pain Goal: Patient goal is pain score less than 4, able to rest, and participant in treatment plan as appropriate Description: INTERVENTIONS: 1. Encourage patient or legal wire rope sales representative to report early pain and ask for pain medicine when needed 2. Assess pain using appropriate pain scale and include the scale used when documenting 3. Administer analgesics based on type and severity of pain and evaluate response within appropriate time frame 4. Implement non-pharmacological measures as appropriate and evaluate response 5. Consider cultural and social influences on pain and pain management 6. Notify LIP if interventions ineffective or patient reports new pain 7. Monitor vital signs including pulse ox, end-tidal CO2 based on pain intervention 8. Reassess pain per policy 9. Teach patient or legal wire rope sales representative interventions for comforting Outcome: Progressing Note: Evaluation of progress towards goal: Encourage patient or legal wire rope sales representative to report early pain and ask for pain medicine when needed. Problem: Safety Goal: Patient will be injury free during hospitalization Description: INTERVENTIONS: 1. Assess patient's risk for falls and implement fall prevention plan of care per policy 2. Provide and maintain a safe environment 3. Proper use of double Identifiers 4. Medication administration using the 5 rights 5. Hand hygiene 6. Specimens are labeled at the bedside 7. Instruct patient/ patient wire rope sales representative about use of safety devices 8. Include patient/ patient wire rope sales representative in decisions related to safety Outcome: Progressing Note: Evaluation of progress towards goal: Pt's bed is low and locked. Environment is clutter free. 2/4 side rails up. Call light and personal items within reach. Non-skid socks worn during ambulation. Problem: Infection Goal: Absence of infection during hospitalization Description: Interventions: 1. Assess and monitor for signs and symptoms of infection 2. Monitor lab/diagnostic results 3. Monitor all insertion sites i.e., indwelling lines, tubes and drains 4. Monitor endotracheal (as able) and nasal secretions for changes in amount and color 5. Administer medications as ordered 6. Instruct and encourage patient and family to use good hand hygiene technique 7. Identify and instruct patient/patient wire rope sales representative in use of appropriate isolation precautionsfor identified infection/symptoms 8. 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 Encourage and monitor nutritional status daily and consult mock up builder if indicated 10. Implement neutropenic guidelines as needed 11. Review exposure to history of communicable disease and recent travel history on admission 12. Encourage annual influenza vaccine 13. Encourage pneumonia vaccine Outcome: Progressing Note: Evaluation of progress towards goal: Nurse will assess and monitor for signs and symptoms of infection with lab/diagnostic results, monitor all insertion sites. Administer medications as ordered. Instruct and encourage patient and family to use good hand hygiene technique. Encourage and monitor nutritional status daily and consult mock up builder if indicated. Encourage annual influenza vaccine and pneumonia vaccine. * Discharge Planning Note - Zita Bergman RN - 03/03/2024 12:41 PM EDT Images from the original note were not included. DISCHARGE PLANNING NOTE Chart reviewed discussed in discharge rounds. Attempted to meet with patient and she was not available. Therapy evals are pending. 13:55 Met with patient at bedside, explained role, verbalized understanding. Patient lives alone and useseither a cane or walker to ambulate. She is able to perform ADLs. 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 Her son will transport home at discharge. Her PCP is Dr. Jeremiah Reed,will add to [employer]. She denies any financial restraints to meeting her needs and is getting medications without difficulties. Her confusion has resolved at this time. PT/OT evals are pending and she isscheduled for a LP in IR tomorrow. Discussed that if she felt home care would be a benefit to her to let us know. Discharge plan at this time is to return to home. Care Navigation to continue to follow. Services Requested: Services Requested Discharge Disposition: Home with self care Initial DC Assessment Completed: Yes Patient Goals: Patient/Caregiver Goals Patient/Caregiver Goals: Home No Needs Goals: Goals Return to home (pt-stated) Evaluation of progress towards goal: * Plan of Care - Ankit De Dios RN - 03/02/2024 10:40 PM EDT Problem: Pain Goal: Patient goal is pain score less than 4, able to rest, and participant in treatment plan as appropriate Description: INTERVENTIONS: 1. Encourage patient or legal wire rope sales representative to report early pain and ask for pain medicine when needed 2. Assess pain using appropriate pain scale and include the scale used when documenting 3. Administer analgesics based on type and severity of pain and evaluate response within appropriate time frame 4. Implement non-pharmacological measures as appropriate and evaluate response 5. Consider cultural and social influences on pain and pain management 6. Notify LIP if interventions ineffective or patient reports new pain 7. Monitor vital signs including pulse ox, end-tidal CO2 based on pain intervention 8. Reassess pain per policy 9. Teach patient or legal wire rope sales representative interventions for comforting Outcome: Progressing Note: Evaluation of progress towards goal: patient encouraged to report pain occurrence, pain assessed using 0-10 pain scale, vital signs monitored, medicated as ordered, pain reassessed Problem: Safety Goal: Patient will be injury free during hospitalization Description: INTERVENTIONS: 1. Assess patient's risk for falls and implement fall prevention plan of care per policy 2. Provide and maintain a safe environment 3. Proper use of double Identifiers 4. Medication administration using the 5 rights 5. Hand hygiene 6. Specimens are labeled at the bedside 7. Instruct patient/ patient wire rope sales representative about use of safety devices 8. Include patient/ patient wire rope sales representative in decisions related to safety Outcome: Progressing Note: Evaluation of progress towards goal: Fall risk assessed, bed maintained in low position, calllight within reach, nil falls this shift. Will continue to monitor Problem: Infection Goal: Absence of infection during hospitalization Description: Interventions: 1. Assess and monitor for signs and symptoms of infection 2. Monitor lab/diagnostic results 3. Monitor all insertion sites i.e., indwelling lines, tubes and drains 4. Monitor endotracheal (as able) and nasal secretions for changes in amount and color 5. Administer medications as ordered 6. Instruct and encourage patient and family to use good hand hygiene technique 7. Identify and instruct patient/patient wire rope sales representative in use of appropriate isolation precautionsfor identified infection/symptoms 8. 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 Encourage and monitor nutritional status daily and consult mock up builder if indicated 10. Implement neutropenic guidelines as needed 11. Review exposure to history of communicable disease and recent travel history on admission 12. Encourage annual influenza vaccine 13. Encourage pneumonia vaccine Outcome: Progressing Note: Evaluation of progress towards goal: Patient assessed for signs of infection, vital signs monitored, insertion sites assessed, nil signs of infection noted throughout shift. Will continue to monitor Problem: Knowledge Deficit Goal: Patient/patient wire rope sales representative demonstrates understanding of disease process, treatment plan,medications, and discharge instructions Description: INTERVENTIONS 1. Complete learning assessment and assess knowledge base 2. Provide teaching at level of understanding 3. Provide teaching via preferred learning method(s) Outcome: Progressing Note: Evaluation of progress towards goal: patient and daughter updated re plan of care Problem: Discharge Planning Goal: Discharge to post-acute care, other facility, or home with appropriate resources Description: Patient's goal is: INTERVENTIONS 1. Conduct assessment to determine patient/family and health care team treatment goals, and need for post-acute services based on payer coverage, community resources, and patient preferences, and barriers to discharge 2. Coordinate with Social work, Care Navigation, and Utilization Review to arrange appropriate level of services according to patient's needs based on patient preference and payer coverage in collaboration with the physician and health care team 3. Address psychosocial, clinical, and financial barriers to discharge as identified in assessment in conjunction with the patient/family and health care team 4. Consult appropriate ancillary services (i.e.. PT/OT/ST, etc) as needed 5. Communicate with and update the patient/family, physician, and health care team regarding progress on the discharge plan 6. Identify discharge learning needs (meds, wound care, etc). 7. Arrange for needed discharge transportation as appropriate Outcome: Progressing Note: Evaluation of progress towards goal: discharge disposition to be decided Problem: Moderate - High Risk Fall Score Description: [place] Fall Score of =/> 25 or indicated by [facility] Assessment Goal: Patient should be free from fall Description: Interventions: 1. [place] to environment 2. Hourly rounds addressing the 4 P's (Pain, Positioning, Possessions, Potty) 3. Clear area of hazards (spills, clutter, electrical cords, unnecessary equipment) 4. Place equipment (bed & TV controls, call light, phone, urinal) within reach 5. Encourage patient to wear glasses and hearing aides as appropriate 6. Maintain bed in lowest position 7. Lock wheels on bed/wheelchair 8. Provide adequate lighting, including night light 9. Assess need for additional bedding, food/fluids, pain med's prior to sleep/routinely 10. Provide gripper slippers or personal non-skid footwear 11. Teach patient and patient wire rope sales representative to maintain environment for safety and engage in all aspects of fall prevention program 12. Remind patient to call for help before getting out of bed 13. Initiate bed/chair/exit alarms supportive devices as appropriate, (chair wedge, no-skid floor mat, raised edge mattress, hip protectors) 14. Locate patient bed assignment for optimal visualization 15. Evaluate and identify Safe Patient Handling Equipment needs 16. Provide supervision when out of bed or chair 17. Utilize gait belt as needed to assist with ambulation 18. Place adaptive equipment (cane, walker) within reach 19. Request patient wire rope sales representative bring adaptive equipment/mobility aids from home or obtain and provide as needed 20. Consult pharmacy regarding effects of med's affecting mobility, cognition, and alternatives 21. Obtain physician order for PT if risk factors associated with mobility are present 22. Obtain physician order for OT as appropriate 23. Utilize diversional activities 24. Educate patient and patient wire rope sales representative how to maintain a safe environment during visitationtimes (notify nurse prior to leaving bedside) 25. Consider appropriateness of medical or non-medical staffing coordinator 26. Set up voiding schedule as appropriate (every 2 hours) Outcome: Progressing Note: Evaluation of progress towards goal: Fall risk assessed, bed maintained in low position, calllight within reach, bed and chair alarm on and working, nil falls this shift. Will continue to monitor * Plan of Care - Dayna Price - 03/02/2024 2:30 PM EDT Problem: Pain Goal: Patient goal is pain score less than 4, able to rest, and participant in treatment plan as appropriate Description: INTERVENTIONS: 1. Encourage patient or legal wire rope sales representative to report early pain and ask for pain medicine when needed 2. Assess pain using appropriate pain scale and include the scale used when documenting 3. Administer analgesics based on type and severity of pain and evaluate response within appropriate time frame 4. Implement non-pharmacological measures as appropriate and evaluate response 5. Consider cultural and social influences on pain and pain management 6. Notify LIP if interventions ineffective or patient reports new pain 7. Monitor vital signs including pulse ox, end-tidal CO2 based on pain intervention 8. Reassess pain per policy 9. Teach patient or legal wire rope sales representative interventions for comforting Outcome: Progressing Note: Evaluation of progress towards goal: Mechanical Car Checker assessed pt pain in the beginning and throughout shift. Pt stated a tolerable pain goal was zero. Mechanical Car Checker medicated pt pain per order. Will continue to monitor. Problem: Safety Goal: Patient will be injury free during hospitalization Description: INTERVENTIONS: 1. Assess patient's risk for falls and implement fall prevention plan of care per policy 2. Provide and maintain a safe environment 3. Proper use of double Identifiers 4. Medication administration using the 5 rights 5. Hand hygiene 6. Specimens are labeled at the bedside 7. Instruct patient/ patient wire rope sales representative about use of safety devices 8. Include patient/ patient wire rope sales representative in decisions related to safety Outcome: Progressing Note: Evaluation of progress towards goal: Patient has remained free from injury during their hospital stay. Skin integrity remains intact. Fall precautions are in place. Will continue to monitor. Problem: Infection Goal: Absence of infection during hospitalization Description: Interventions: 1. Assess and monitor for signs and symptoms of infection 2. Monitor lab/diagnostic results 3. Monitor all insertion sites i.e., indwelling lines, tubes and drains 4. Monitor endotracheal (as able) and nasal secretions for changes in amount and color 5. Administer medications as ordered 6. Instruct and encourage patient and family to use good hand hygiene technique 7. Identify and instruct patient/patient wire rope sales representative in use of appropriate isolation precautionsfor identified infection/symptoms 8. 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 Encourage and monitor nutritional status daily and consult mock up builder if indicated 10. Implement neutropenic guidelines as needed 11. Review exposure to history of communicable disease and recent travel history on admission 12. Encourage annual influenza vaccine 13. Encourage pneumonia vaccine Outcome: Progressing Note: Evaluation of progress towards goal: Patient has remained free from infection during hospitalstay. Patient is afebrile and last WBC was _. Will continue using standard precautions and monitoring for signs and symptoms of infection. Problem: Knowledge Deficit Goal: Patient/patient wire rope sales representative demonstrates understanding of disease process, treatment plan,medications, and discharge instructions Description: INTERVENTIONS 1. Complete learning assessment and assess knowledge base 2. Provide teaching at level of understanding 3. Provide teaching via preferred learning method(s) Outcome: Progressing Note: Evaluation of progress towards goal: Patient and/or family has demonstrated appropriate knowledge regarding care plan, disease process, medications, and discharge planning. Will continue to engage and encourage questions. Problem: Moderate - High Risk Fall Score Description: [place] Fall Score of =/> 25 or indicated by [facility] Assessment Goal: Patient should be free from fall Description: Interventions: 1. [place] to environment 2. Hourly rounds addressing the 4 P's (Pain, Positioning, Possessions, Potty) 3. Clear area of hazards (spills, clutter, electrical cords, unnecessary equipment) 4. Place equipment (bed & TV controls, call light, phone, urinal) within reach 5. Encourage patient to wear glasses and hearing aides as appropriate 6. Maintain bed in lowest position 7. Lock wheels on bed/wheelchair 8. Provide adequate lighting, including night light 9. Assess need for additional bedding, food/fluids, pain med's prior to sleep/routinely 10. Provide gripper slippers or personal non-skid footwear 11. Teach patient and patient wire rope sales representative to maintain environment for safety and engage in all aspects of fall prevention program 12. Remind patient to call for help before getting out of bed 13. Initiate bed/chair/exit alarms supportive devices as appropriate, (chair wedge, no-skid floor mat, raised edge mattress, hip protectors) 14. Locate patient bed assignment for optimal visualization 15. Evaluate and identify Safe Patient Handling Equipment needs 16. Provide supervision when out of bed or chair 17. Utilize gait belt as needed to assist with ambulation 18. Place adaptive equipment (cane, walker) within reach 19. Request patient wire rope sales representative bring adaptive equipment/mobility aids from home or obtain and provide as needed 20. Consult pharmacy regarding effects of med's affecting mobility, cognition, and alternatives 21. Obtain physician order for PT if risk factors associated with mobility are present 22. Obtain physician order for OT as appropriate 23. Utilize diversional activities 24. Educate patient and patient wire rope sales representative how to maintain a safe environment during visitationtimes (notify nurse prior to leaving bedside) 25. Consider appropriateness of medical or non-medical staffing coordinator 26. Set up voiding schedule as appropriate (every 2 hours) Outcome: Progressing Note: Evaluation of progress towards goal: Patient has remained free from falls during their hospital stay. Fall precautions are in place. Call light is within reach. Table and belonging are within reach at the bedside. Adequate lighting has been provided. Hourly rounding has been performed. Will continue to monitor. Cosigned by Tiffanie Smith RN at 03/02/2024 5:59 PM EDT Associated attestation - Tiffanie Smith RN - 03/02/2024 5:59 PM EDT - Tiffanie Smith RN 03/02/24 5:59 PM * Plan of Care - Jaimee Hobson RN - 03/02/2024 4:15 AM EDT Problem: Pain Goal: Patient goal is pain score less than 4, able to rest, and participant in treatment plan as appropriate Description: INTERVENTIONS: 1. Encourage patient or legal wire rope sales representative to report early pain and ask for pain medicine when needed 2. Assess pain using appropriate pain scale and include the scale used when documenting 3. Administer analgesics based on type and severity of pain and evaluate response within appropriate time frame 4. Implement non-pharmacological measures as appropriate and evaluate response 5. Consider cultural and social influences on pain and pain management 6. Notify LIP if interventions ineffective or patient reports new pain 7. Monitor vital signs including pulse ox, end-tidal CO2 based on pain intervention 8. Reassess pain per policy 9. Teach patient or legal wire rope sales representative interventions for comforting Outcome: Progressing Note: Evaluation of progress towards goal: Patient encouraged to report pain occurrence. Pain assessed using 0-10 pain scale. Patient reports no pain at this time. PRN pain medication ordered if needed. Problem: Safety Goal: Patient will be injury free during hospitalization Description: INTERVENTIONS: 1. Assess patient's risk for falls and implement fall prevention plan of care per policy 2. Provide and maintain a safe environment 3. Proper use of double Identifiers 4. Medication administration using the 5 rights 5. Hand hygiene 6. Specimens are labeled at the bedside 7. Instruct patient/ patient wire rope sales representative about use of safety devices 8. Include patient/ patient wire rope sales representative in decisions related to safety Outcome: Progressing Note: Evaluation of progress towards goal: Patient has remained free of falls throughout this shift. Patient uses call light appropriately, non-slip socks are on, bed locked and in lowest position, two side rails up, and bedside table within reach. Fall risk wristband on. Bed alarm on and working. Problem: Infection Goal: Absence of infection during hospitalization Description: Interventions: 1. Assess and monitor for signs and symptoms of infection 2. Monitor lab/diagnostic results 3. Monitor all insertion sites i.e., indwelling lines, tubes and drains 4. Monitor endotracheal (as able) and nasal secretions for changes in amount and color 5. Administer medications as ordered 6. Instruct and encourage patient and family to use good hand hygiene technique 7. Identify and instruct patient/patient wire rope sales representative in use of appropriate isolation precautionsfor identified infection/symptoms 8. 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 Encourage and monitor nutritional status daily and consult mock up builder if indicated 10. Implement neutropenic guidelines as needed 11. Review exposure to history of communicable disease and recent travel history on admission 12. Encourage annual influenza vaccine 13. Encourage pneumonia vaccine Note: Evaluation of progress towards goal: Patient has remained afebrile. WBC and vital signs monitored. Patient has not shown any additional signs of infection at this time. [facility]* Discharge Planning Note - Lisa Guzman RN - 03/07/2024 3:07 PM EDT DISCHARGE PLANNING NOTE Follow-up Discharge Planning Progress Note Per RN during discharge transition rounds, barriers to discharge are: none. Discharge Plan: Home with [facility] health care and [facility]. [facility] confirmed start of care today at 6 pm. Son Elijah updated, bedside nurse updated. [facility] tasked to send CRF to home care agency. Care Navigation will continue to follow for any discharge needs. - Lisa Guzman RN 03/07/24 3:09 PM \ [employer] [id number] History of Present illness Narrative* Stuart Wade MD - 03/07/2024 12:12 PM EDT Images from the original note were not included. Division of Infectious Diseases - Progress Note [facility] - Academic Team 2 During Business Hours: Please use [employer] for communication. After Hours: Please call for our answering service. 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 C2 shingles. Continues to improve clinically. Creatinine not checked for several days. Maintain acyclovir 10 milligrams/kilogram IV every 12 hours through March 11. Prescriptions printed for OPAT. We will follow the patient in clinic. No objections to discharge. If she does remain in the hospital over the weekend, we will likely not follow her over the weekendunless circumstances change. Subjective Interval History: No further confusion. No fevers or chills. No pain. No headaches. No neurologic symptoms. No stroke-like symptoms. No slurred speech. No vesicles. Objective Physical Examination: BP 137/58 Pulse 111 Temp 36.5 C (97.7 F) (Oral) Resp 17 Ht 165.1 cm (5' 5 ) Wt 87 kg (191lb 12.8 oz) SpO2 91% BMI 31.92 kg/m Temperature Range: Temp: 36.5 C (97.7 F) Temp Av.6 C (97.8 F) Min: 36.4 C (97.5 F) Max: 36.6 C(97.9 F) General Appearance: Alert, confusion has resolved, cooperative, in mild distress due to nausea and anxiety. Cardiovascular: Regular rate and rhythm, no murmurs, rubs, or gallops. Respiratory: Clear to auscultation bilaterally, no wheezing or crackles. Abdominal: Soft, non-tender, non-distended. Musculoskeletal: No significant joint or muscle tenderness. Neurological: Now conversational, alert and oriented x3, no focal deficits noted. Integumentary: No further vesicular rash noted around the left eye. No erythematous signs or tenderness. Laboratory data: I have independently reviewed the following labs: Results from last 7 days Lab Units 03/04/24 0603/03/24 0603/02/24 0606 WBC X10E9/L 7.0 8.5 9.3 HEMOGLOBIN g/dL 14.0 14.9 14.3 HEMATOCRIT % 42.0 43.7 42.8 MCV fL 92 91 91 PLATELETS X10E9/L 241 267 224 NEUTROS ABS X10E9/L 4.3 5.1 6.3 LYMPHS ABS AUTO X10E9/L 1.6 2.4 1.9 MONOS ABS AUTO X10E9/L 0.7 0.8 1.0* EOS ABS AUTO X10E9/L 0.2 0.1 0.1 BASOS ABS AUTO X10E9/L 0.2 0.1 0.1 Results from last 7 days Lab Units 03/04/24 0631 03/03/24 0627 03/02/24 0606 03/02/24 0111 SODIUM mmol/L 143 142 141 138 POTASSIUM mmol/L 3.8 4.3 4.0 4.8 CHLORIDE mmol/L 105 107 107 103 CO2 mmol/L 26 20* 23 23 BUN mg/dL 19 22 30* 29* CREATININE mg/dL 1.01* 1.10* 1.36* 1.45* CALCIUM mg/dL 9.8 9.6 9.5 9.7 ALBUMIN g/dL -- -- 3.9 4.0 ALK PHOS U/L -- -- 58 62 ALT U/L -- -- 15 15 AST U/L -- -- 15 17 Results from last 7 days Lab Units 03/02/24 2215 COLOR YELLOW TURBIDITY CLEAR SPECIFIC GRAVITY 1.019 NITRITE Negative PH URINE 6.0 LEUKOCYTE ESTERASE Negative PROTEIN mg/dL Negative KETONES (URINE) mg/dL Trace* UROBILINOGEN eu/dL <1.1 BLDHGB Negative Imaging Studies: I have personally reviewed the chest X-ray, and my interpretation is as follows: Mild central vascular congestion likely aggravated by low lung volume. Cultures: Microbiology Results Procedure Component Value Units Date/Time Spinal Fluid culture includes gram stain, CSF [[id number]] Collected: 03/04/24929 Specimen: Cerebrospinal Fluid Updated: 03/07/24736 Gram Stain Result WHITE BLOOD CELLS PRESENT NO ORGANISMS SEEN ON CONCENTRATED SMEAR Culture NO GROWTH 3 DAYS Medications: acyclovir, 10 mg/kg (Adjusted), intravenous, Q12H amLODIPine, 5 mg, oral, Daily aspirin, 81 mg, oral, Daily busPIRone, 10 mg, oral, BID calcium carbonate, 500 mg, oral, Daily with breakfast heparin (porcine), 5,000 Units, subcutaneous, Q8H JEFFREY melatonin, 5 mg, oral, Nightly nortriptyline, 25 mg, oral, Nightly oxyCODONE-acetaminophen, 1 tablet, oral, Nightly [COMPLETED] Consult PICC nurse, , , Once AND sodium chloride, 10 mL, intravenous, Q12H AND sodium chloride, 10 mL, intravenous, PRN AND sodium chloride, 20 mL, intravenous, PRN sodium chloride, 3 mL, intravenous, Q12H JEFFREY tobramycin-dexAMETHasone, 1 drop, left eye, BID It is not necessary to call with new culture results. Thank you for allowing us to participate in the care of this patient. Please call with questions. Stuart Wade MD, MPH, [facility], [facility] From 7AM-7PM: From 7AM-7PM: Please use [employer] for communication. From 7PM-7AM: Please call for our answering service. * Stuart Wade MD - 03/06/2024 1:35 PM EDT Images from the original note were not included. Division of Infectious Diseases - Progress Note [facility] - Academic Team 2 During Business Hours: Please use [employer] for communication. After Hours: Please call for our answering service. 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 C2 shingles. The patient is improving clinically. Renal function has not been checked in several days, therefore, we will keep the patient on acyclovir 10 milligrams/kilogram IV every 12 hours. This appears to be sufficient from our perspective. Plan will be to treat through March 11. Prescriptions printed for OPAT. We will follow the patient in clinic. No objections to discharge. Subjective Interval History: Confusion is improving. No fevers or chills. No pain. No headaches. No neurologic symptoms. No stroke-like symptoms. No slurred speech. No vesicles. Objective Physical Examination: BP 166/82 Pulse 104 Temp 36.9 C (98.5 F) (Oral) Resp 18 Ht 165.1 cm (5' 5 ) Wt 88.6 kg (195 lb 5.2 oz) SpO2 95% BMI 32.50 kg/m Temperature Range: Temp: 36.9 C (98.5 F) Temp Av.8 C (98.2 F) Min: 36.5 C (97.7 F) Max: 36.9 C(98.5 F) General Appearance: Alert, confusion has resolved, cooperative, in mild distress due to nausea and anxiety. Cardiovascular: Regular rate and rhythm, no murmurs, rubs, or gallops. Respiratory: Clear to auscultation bilaterally, no wheezing or crackles. Abdominal: Soft, non-tender, non-distended. Musculoskeletal: No significant joint or muscle tenderness. Neurological: Now conversational, alert and oriented x3, no focal deficits noted. Integumentary: No further vesicular rash noted around the left eye. No erythematous signs or tenderness. Laboratory data: I have independently reviewed the following labs: Results from last 7 days Lab Units 03/04/24 0631 03/03/24 0627 03/02/24 0606 WBC X10E9/L 7.0 8.5 9.3 HEMOGLOBIN g/dL 14.0 14.9 14.3 HEMATOCRIT % 42.0 43.7 42.8 MCV fL 92 91 91 PLATELETS X10E9/L 241 267 224 NEUTROS ABS X10E9/L 4.3 5.1 6.3 LYMPHS ABS AUTO X10E9/L 1.6 2.4 1.9 MONOS ABS AUTO X10E9/L 0.7 0.8 1.0* EOS ABS AUTO X10E9/L 0.2 0.1 0.1 BASOS ABS AUTO X10E9/L 0.2 0.1 0.1 Results from last 7 days Lab Units 03/04/24 0631 03/03/24 0627 03/02/24 0606 03/02/24 0111 SODIUM mmol/L 143 142 141 138 POTASSIUM mmol/L 3.8 4.3 4.0 4.8 CHLORIDE mmol/L 105 107 107 103 CO2 mmol/L 26 20* 23 23 BUN mg/dL 19 22 30* 29* CREATININE mg/dL 1.01* 1.10* 1.36* 1.45* CALCIUM mg/dL 9.8 9.6 9.5 9.7 ALBUMIN g/dL -- -- 3.9 4.0 ALK PHOS U/L -- -- 58 62 ALT U/L -- -- 15 15 AST U/L -- -- 15 17 Results from last 7 days Lab Units 03/02/24 2215 COLOR YELLOW TURBIDITY CLEAR SPECIFIC GRAVITY 1.019 NITRITE Negative PH URINE 6.0 LEUKOCYTE ESTERASE Negative PROTEIN mg/dL Negative KETONES (URINE) mg/dL Trace* UROBILINOGEN eu/dL <1.1 BLDHGB Negative Imaging Studies: I have personally reviewed the chest X-ray, and my interpretation is as follows: Mild central vascular congestion likely aggravated by low lung volume. Cultures: Microbiology Results Procedure Component Value Units Date/Time Spinal Fluid culture includes gram stain, CSF [[id number]] Collected: 03/04/24929 Specimen: Cerebrospinal Fluid Updated: 03/06/24745 Gram Stain Result WHITE BLOOD CELLS PRESENT NO ORGANISMS SEEN ON CONCENTRATED SMEAR Culture NO GROWTH 2 DAYS Medications: acyclovir, 10 mg/kg (Adjusted), intravenous, Q12H amLODIPine, 5 mg, oral, Daily aspirin, 81 mg, oral, Daily busPIRone, 10 mg, oral, BID calcium carbonate, 500 mg, oral, Daily with breakfast heparin (porcine), 5,000 Units, subcutaneous, Q8H JEFFREY melatonin, 5 mg, oral, Nightly nortriptyline, 25 mg, oral, Nightly oxyCODONE-acetaminophen, 1 tablet, oral, Nightly [COMPLETED] Consult PICC nurse, , , Once AND sodium chloride, 10 mL, intravenous, Q12H AND sodium chloride, 10 mL, intravenous, PRN AND sodium chloride, 20 mL, intravenous, PRN sodium chloride, 3 mL, intravenous, Q12H JEFFREY tobramycin-dexAMETHasone, 1 drop, left eye, BID It is not necessary to call with new culture results. Thank you for allowing us to participate in the care of this patient. Please call with questions. Stuart Wade MD, MPH, FACP, FIDSA From 7AM-7PM: From 7AM-7PM: Please use [employer] for communication. From 7PM-7AM: Please call for our answering service. * Aga Mendoza MD - 03/06/2024 7:21 AM EDT Images from the original note were not included. [facility] Neurology General Neurology Primary Progress Note Primary Neurology service: [phone] Chief Complaint: confusion Interval History: Aaron Lewis is a 79 y.o. year old female who was admitted to inpatient Neurology for chief complaint of confusion. She was brought in by her son and history was corroborated between patient and son. She reports she started having symptoms of shingles on left forehead on 02/23. She visited the ED on 02/26 and was diagnosed with shingles and concern that it had spread to her eye. She was started on Valtrex, steroids and tobramycin- steroid eye drops. She progressively became confused and mixed upher words. On arrival, she had CTH that was unremarkable. She was then admitted to neurology service. EEG was done and showed encephalopathy, no other findings, therefore was discontinued. MRI brain with and without contrast showed no acute findings. Son requested that LP be done by IR as the patient reportedly had spinal leak after previous spinal surgery years ago, she might have hardware from that surgery, and his has had several chronic difficulties with CSF leaks. 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 PT/OT recommended SNF, but patient refused and preferred home health care.ID recommend total of 10-14 days of treatment by IV as literature does not suggest benefit or oral therapy for meningitis. PICC line placed 03/05. Overnight, no acute events. Today, she is doing well. She was concerned to wash her hair thinking she had scabs on her scalp from the infection. However, after inspection it appears as if there is only residual EEG glue in her hair. She forgot or was unaware she had EEG done so she did not know there was glue in her hair. Otherwise no concerns or complaints this morning. Pertinent past Medical History/Family/Social History reviewed as per initial HPI. Pertinent Systems reviewed as per initial HPI, and negative as below except for mentioned above. Medications: 22.5 MME/Day Physical Exam Vital Signs: Vitals: 03/06/24 0325 BP: 135/76 Pulse: 111 Resp: 18 Temp: 36.7 C (98.1 F) SpO2: 95% General: Normotensive, in no acute distress Cardiac Examination: Heart: RRR Neurological Examination: Higher Mental Function: Orientated to time, place, person Language intact Fund of knowledge appropriate Ophthalmological Examination: Clear conjunctiva, no cataracts. Cranial Nerve Examination: II: Normal tracking, no evidence of hemianopia or other visual field defect. III, IV, & : EOM intact, no ptosis, no nystagmus seen. Pupils are equal and reactive to light. V: Facial sensation is intact. VII: no facial asymmetry, facial movement intact. VIII: hearing is normal. IX-X: Palate elevates in the midline. XI: Normal trapezius strength and/or movement. XII: Tongue movement is normal, position is midline and no fasciculations are observed. Tongue strength intact. Motor: Power -- No focal motor weakness noted in BL upper or lower extremities; pain in right shoulder from known rotator cuff injury and chronic RLE pain. Bulk and muscle tone are intact in BL upper and lower extremities. No rigidity or spasticity. No atrophy or abnormal movements noted. Sensory examination: Intact to light touch throughout. Cerebellar: observed coordinated movements of upper extremities Gait and station: Deferred, refer to PT note Pertinent Labs: UA negative CBC and BMP WNL CSF 03/04: 91 nucleated cells 97% lymphocytes, 2 RBC, 57 protein, 64 glucose, VZV+; OP 20, CP 4 cm H2O, 15 cc collected Imaging: CT: no acute findings MRI brain with and without contrast: no acute findings, chronic microvascular changes Other Testing: EEG 03/02: moderate generalized slowing Assessment: Aaron Lewis is a 79 yo female who has been diagnosed with L V1 shingles and prescribed Valtrex, steroids and eye drops but then became confused and was mixing up words. She was brought to the hospital and admitted for concern for VZV meningitis. CTH unremarkable. MRI unremarkable. Physical exam remarkable for healing shingles, difficult concentration, attention and mixing up words. 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 Recommend IV acyclovir for complete 10-14 days of treatment. Prescribed medication for home. Continue Acyclovir 10mg/kg q8h IV, EOT 03/11 Continue Tobradex eye drops in left eye Continue home norvasc 5 mg daily, Buspar 1 mg daily, ASA 81 mg daily, Pamelor 25 mg hs PT/OT recommend SNF, patient wanting home health care Zofran prn for nausea and Atarax prn for anxiety DVT Ppx SubQ heparin Diet Regular Disposition refusing SNF, referrals for home health care sent Code status Full Aga Mendoza MD PGY-3 Neurology Resident [facility] 03/06/24 Staffed with: (Dr. Monteiro) This patient is being followed by the Neurology Resident service. Contact attending directly during these hours: Sunday to 7:30-8:30 A.M. to Sunday 12-1:00 p.m. Primary Neurology service: [phone] Consult neurology service: [phone] Resident Stroke Service: [phone] If the patient belongs to the Stroke ESVIN service please contact the Stroke ESVIN directly. Cosigned by Renay Monteiro MD at 03/06/2024 1:43 PM EDT Associated attestation - Renay Monteiro MD - 03/06/2024 1:43 PM EDT Attending Attestation: I saw the patient. I performed the critical/damon portions of the service. I was directly involved inthe management and treatment plan of the patient. I reviewed the resident's note. Additional Notes/Findings: No event overnight; Normal examination; PICC line in place; Pending discharge to home with home health visits for IV antiviral treatment as recommended by ID consultation Renay Monteiro MD, PhD * Stuart Wade MD - 03/05/2024 12:40 PM EDT Images from the original note were not included. Division of Infectious Diseases - Progress Note [facility] - Academic Team 2 During Business Hours: Please use [employer] for communication. After Hours: Please call for our answering service. 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 C2 shingles. The patient is improving clinically, with apparent resolution of the altered mental status that waspresent previously. The patient remains on intravenous acyclovir. The current dose is 10 milligrams/kilogram IV every 12 hours. Creatinine is improving. Our plan will be to treat through March 11. Although it is uncertain whether patients need IV antibiotics or can be treated with oral antibiotics after IV induction, I would favor intravenous antibiotics to finish a 10 day course of therapy given that she presented with initial confusion as well. Prescriptions printed for OPAT. We will have the patient follow in clinic. Subjective Interval History: Less confusion. No fevers or chills. No chest pain or palpitations. No nausea or vomiting. No muscle aches or pains. No cough. Objective Physical Examination: BP 151/73 Pulse 101 Temp 36.7 C (98 F) (Oral) Resp 18 Ht 165.1 cm (5' 5 ) Wt 88.6 kg (195lb 5.2 oz) SpO2 93% BMI 32.50 kg/m Temperature Range: Temp: 36.7 C (98 F) Temp Av.8 C (98.2 F) Min: 36.4 C (97.5 F) Max: 37.1 C (98.8 F) General Appearance: Alert, moderately confused, cooperative, in mild distress due to nausea and anxiety. Cardiovascular: Regular rate and rhythm, no murmurs, rubs, or gallops. Respiratory: Clear to auscultation bilaterally, no wheezing or crackles. Abdominal: Soft, non-tender, non-distended. Musculoskeletal: No significant joint or muscle tenderness. Neurological: Moderately confused, oriented to self only, no focal deficits noted. Integumentary: Shingles rash noted around left eye extending into left temporoparietal region, no erythema or signs of infection. Laboratory data: I have independently reviewed the following labs: Results from last 7 days Lab Units 03/04/2463003/03/2462603/02/24 0606 WBC X10E9/L 7.0 8.5 9.3 HEMOGLOBIN g/dL 14.0 14.9 14.3 HEMATOCRIT % 42.0 43.7 42.8 MCV fL 92 91 91 PLATELETS X10E9/L 241 267 224 NEUTROS ABS X10E9/L 4.3 5.1 6.3 LYMPHS ABS AUTO X10E9/L 1.6 2.4 1.9 MONOS ABS AUTO X10E9/L 0.7 0.8 1.0* EOS ABS AUTO X10E9/L 0.2 0.1 0.1 BASOS ABS AUTO X10E9/L 0.2 0.1 0.1 Results from last 7 days Lab Units 03/04/24 0631 03/03/24 0603/02/24 0606 03/02/24 0111 SODIUM mmol/L 143 142 141 138 POTASSIUM mmol/L 3.8 4.3 4.0 4.8 CHLORIDE mmol/L 105 107 107 103 CO2 mmol/L 26 20* 23 23 BUN mg/dL 19 22 30* 29* CREATININE mg/dL 1.01* 1.10* 1.36* 1.45* CALCIUM mg/dL 9.8 9.6 9.5 9.7 ALBUMIN g/dL -- -- 3.9 4.0 ALK PHOS U/L -- -- 58 62 ALT U/L -- -- 15 15 AST U/L -- -- 15 17 Results from last 7 days Lab Units 03/02/24 2215 COLOR YELLOW TURBIDITY CLEAR SPECIFIC GRAVITY 1.019 NITRITE Negative PH URINE 6.0 LEUKOCYTE ESTERASE Negative PROTEIN mg/dL Negative KETONES (URINE) mg/dL Trace* UROBILINOGEN eu/dL <1.1 BLDHGB Negative Imaging Studies: I have personally reviewed the chest X-ray, and my interpretation is as follows: Mild central vascular congestion. Cultures: Microbiology Results Procedure Component Value Units Date/Time Spinal Fluid culture includes gram stain, CSF [[id number]] Collected: 03/04/24929 Specimen: Cerebrospinal Fluid Updated: 03/05/24804 Gram Stain Result WHITE BLOOD CELLS PRESENT NO ORGANISMS SEEN ON CONCENTRATED SMEAR Culture NO GROWTH <24 HRS Medications: acyclovir, 10 mg/kg (Adjusted), intravenous, Q12H amLODIPine, 5 mg, oral, Daily aspirin, 81 mg, oral, Daily busPIRone, 10 mg, oral, BID calcium carbonate, 500 mg, oral, Daily with breakfast heparin (porcine), 5,000 Units, subcutaneous, Q8H JEFFREY melatonin, 5 mg, oral, Nightly nortriptyline, 25 mg, oral, Nightly [COMPLETED] Consult PICC nurse, , , Once AND sodium chloride, 10 mL, intravenous, Q12H AND sodium chloride, 10 mL, intravenous, PRN AND sodium chloride, 20 mL, intravenous, PRN sodium chloride, 3 mL, intravenous, Q12H JEFFREY tobramycin-dexAMETHasone, 1 drop, left eye, BID It is not necessary to call with new culture results. Thank you for allowing us to participate in the care of this patient. Please call with questions. Stuart Wade MD, MPH, FACP, FIDSA From 7AM-7PM: From 7AM-7PM: Please use [employer] for communication. From 7PM-7AM: Please call for our answering service. * Aga Mendoza MD - 03/05/2024 7:53 AM EDT Images from the original note were not included. [facility] Neurology General Neurology Primary Progress Note Primary Neurology service: [phone] Chief Complaint: confusion Interval History: Aaron Lewis is a 79 y.o. year old female who was admitted to inpatient Neurology for chief complaint of confusion. She was brought in by her son and history was corroborated between patient and son. She reports she started having symptoms of shingles on left forehead on 02/23. She visited the ED on 02/26 and was diagnosed with shingles and concern that it had spread to her eye. She was started on Valtrex, steroids and tobramycin- steroid eye drops. On , son noticed she had mixed up words through text but in person she seemed okay. By Sunday, she was very confused in person. Kept mixing up words, couldn't remember her son's name, kept replacing other verbs with the word sleep . On arrival, she had CTH that was unremarkable. She was then admitted to neurology service. EEG was done and showed encephalopathy, no other findings, therefore was discontinued. MRI brain with and without contrast showed no acute findings. Son requested that LP be done by IR as the patient reportedly had spinal leak after previous spinal surgery years ago, she might have hardware from that surgery, and his has had several chronic difficulties with CSF leaks. 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 PT/OT recommended SNF, but patient refused and preferred home health care. Overnight, lost IV access overnight. Unable to give acyclovir through midline. Today, she was having urinary retention and urgency which she reports is chronic. She also was slightly upset because she did not recall anyone discussing results of MRI and CSF studies. These results were communicated with her twice today and she verbalized understanding. Pertinent past Medical History/Family/Social History reviewed as per initial HPI. Pertinent Systems reviewed as per initial HPI, and negative as below except for mentioned above. Medications: 22.5 MME/Day Physical Exam Vital Signs: Vitals: 03/05/24 0315 BP: 146/87 Pulse: 71 Resp: 18 Temp: 37 C (98.6 F) SpO2: 96% General: Normotensive, in no acute distress Cardiac Examination: Heart: RRR Neurological Examination: Higher Mental Function: Orientated to time, place, person Language intact Fund of knowledge appropriate Ophthalmological Examination: Clear conjunctiva, no cataracts. Cranial Nerve Examination: II: Normal tracking, no evidence of hemianopia or other visual field defect. III, IV, & : EOM intact, no ptosis, no nystagmus seen. Pupils are equal and reactive to light. V: Facial sensation is intact. VII: no facial asymmetry, facial movement intact. VIII: hearing is normal. IX-X: Palate elevates in the midline. XI: Normal trapezius strength and/or movement. XII: Tongue movement is normal, position is midline and no fasciculations are observed. Tongue strength intact. Motor: Power -- No focal motor weakness noted in BL upper or lower extremities; pain in right shoulder from known rotator cuff injury and chronic RLE pain. Bulk and muscle tone are intact in BL upper and lower extremities. No rigidity or spasticity. No atrophy or abnormal movements noted. No dystonia, or motor tics. No bradykinesia, postural or kinetic tremor noted. No fasciculation or myotonia noted. No abnormal movements noticed. No evidence of pseudo bulbar paralysis; no sialorrhea, difficulties swallowing. Sensory examination: Intact to light touch throughout. Cerebellar: observed coordinated movements of upper extremities Gait and station: Deferred, refer to PT note Pertinent Labs: UA negative CBC and BMP WNL CSF 03/04: 91 nucleated cells 97% lymphocytes, 2 RBC, 57 protein, 64 glucose, VZV+; OP 20, CP 4 cm H2O, 15 cc collected Imaging: CT: no acute findings MRI brain with and without contrast: no acute findings, chronic microvascular changes Other Testing: EEG 03/02: moderate generalized slowing Assessment: Aaron Lewis is a 79 yo female who has been diagnosed with L V1 shingles and prescribed Valtrex, steroids and eye drops but then became confused and was mixing up words. She was brought to the hospital and admitted for concern for VZV meningitis. CTH unremarkable. MRI unremarkable. Physical exam remarkable for healing shingles, difficult concentration, attention and mixing up words. 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 Recommend IV acyclovir at current dose for total of 10-14 days as there is no current evidence in literature to suggest benefit of po medications. ID okay with discharging with PICC line and home health care. Continue Acyclovir 10mg/kg q8h IV, currently day 3/14 Continue Tobradex eye drops in left eye Continue home norvasc 5 mg daily, Buspar 1 mg daily, ASA 81 mg daily, Pamelor 25 mg hs PICC line for acyclovir PT/OT recommend SNF, patient wanting home health care Zofran prn for nausea and Atarax prn for anxiety DVT Ppx SubQ heparin Diet Regular Disposition refusing SNF, referrals for home health care sent Code status Full Aga Mendoza MD PGY-3 Neurology Resident [facility] 03/05/24 Staffed with: (Dr. Monteiro) This patient is being followed by the Neurology Resident service. Contact attending directly during these hours: Sunday to 7:30-8:30 A.M. to Sunday 12-1:00 p.m. Primary Neurology service: [phone] Consult neurology service: [phone] Resident Stroke Service: [phone] If the patient belongs to the Stroke ESVIN service please contact the Stroke ESVIN directly. Cosigned by Renay Monteiro MD at 03/05/2024 2:48 PM EDT Associated attestation - Renay Monteiro MD - 03/05/2024 2:48 PM EDT Attending Attestation: I saw the patient. I performed the critical/damon portions of the service. I was directly involved inthe management and treatment plan of the patient. I reviewed the resident's note. Additional Notes/Findings: Subjectively improved; no new discomfort; non-localizing examination; appreciate ID consultation; plan to discharge to home as requested by the patient and will complete the recommended 14 day IV acyclovir via PICC line per home health service Renay Monteiro MD, PhD * Aga Mendoza MD - 03/04/2024 7:21 AM EDT Images from the original note were not included. [facility] Neurology General Neurology Primary Progress Note Primary Neurology service: [phone] Chief Complaint: confusion Interval History: Aaron Lewis is a 79 y.o. year old female who was admitted to inpatient Neurology for chief complaint of confusion. She was brought in by her son and history was corroborated between patient and son. She reports she started having symptoms of shingles on left forehead on 02/23. She visited the ED on 02/26 and was diagnosed with shingles and concern that it had spread to her eye. She was started on Valtrex, steroids and tobramycin- steroid eye drops. On , son noticed she had mixed up words through text but in person she seemed okay. By Sunday, she was very confused in person. Kept mixing up words, couldn't remember her son's name, kept replacing other verbs with the word sleep . On arrival, she had CTH that was unremarkable. She was then admitted to neurology service. EEG was done and showed encephalopathy, no other findings, therefore was discontinued. MRI brain with and without contrast showed no acute findings. Son requested that LP be done by IR as the patient reportedly had spinal leak after previous spinal surgery years ago, she might have hardware from that surgery, and his has had several chronic difficulties with CSF leaks. Overnight, no acute events. Today, she had LP by IR in the morning. She was reporting she is feeling well. She reported yesterday she was made anxious by her nurse, saying she was being nasty . She denies coughing or SOB. Nursing reported she has been requiring 3L NC due to hypoxia to the 80s on pulse ox. Pertinent past Medical History/Family/Social History reviewed as per initial HPI. Pertinent Systems reviewed as per initial HPI, and negative as below except for mentioned above. Medications: 22.5 MME/Day Physical Exam Vital Signs: Vitals: 03/04/24 0330 BP: 142/83 Pulse: 89 Resp: 18 Temp: 36.7 C (98 F) SpO2: 98% General: Normotensive, in no acute distress, on RA saturating 95-100%. Respiratory: CTAB Cardiac Examination: Heart: RRR Neurological Examination: Higher Mental Function: Orientated to time, place, person Language intact Fund of knowledge appropriate Ophthalmological Examination: Clear conjunctiva, no cataracts. Cranial Nerve Examination: II: Normal tracking, no evidence of hemianopia or other visual field defect. III, IV, & : EOM intact, no ptosis, no nystagmus seen. Pupils are equal and reactive to light. V: Facial sensation is intact. VII: no facial asymmetry, facial movement intact. VIII: hearing is normal. IX-X: Palate elevates in the midline. XI: Normal trapezius strength and/or movement. XII: Tongue movement is normal, position is midline and no fasciculations are observed. Tongue strength intact. Motor: Power -- No focal motor weakness noted in BL upper or lower extremities; pain in right shoulder from known rotator cuff injury and chronic RLE pain. Bulk and muscle tone are intact in BL upper and lower extremities. No rigidity or spasticity. No atrophy or abnormal movements noted. No dystonia, or motor tics. No bradykinesia, postural or kinetic tremor noted. No fasciculation or myotonia noted. No abnormal movements noticed. No evidence of pseudo bulbar paralysis; no sialorrhea, difficulties swallowing. Sensory examination: Intact to light touch throughout. Cerebellar: Deferred, patient had to use restroom Gait and station: Deferred, refer to PT note Pertinent Labs: UA negative CBC and BMP WNL CSF 03/04: 91 nucleated cells 97% lymphocytes, 2 RBC, 57 protein, 64 glucose; OP 20, CP 4 cm H2O, 15 cc collected Imaging: CT: no acute findings MRI brain with and without contrast: no acute findings, chronic microvascular changes Other Testing: EEG 03/02: moderate generalized slowing Assessment: Aaron Lewis is a 79 yo female who has been diagnosed with L V1 shingles and prescribed Valtrex, steroids and eye drops but then became confused and was mixing up words. She was brought to the hospital and admitted for concern for VZV meningitis. CTH unremarkable. MRI unremarkable. Physical exam remarkable for healing shingles, difficult concentration, attention and mixing up words. 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 L V1 distribution shingles Acute hypocix respiratory failure requiring supplemental oxygen per nursing report Plan: Pending meningitis panel Consulted ID for viral meningitis Follow up CXR Continue Acyclovir 10mg/kg q8h IV Continue Tobradex eye drops in left eye Continue home norvasc 5 mg daily, Buspar 1 mg daily, ASA 81 mg daily, Pamelor 25 mg hs PT/OT Zofran prn for nausea and Atarax prn for anxiety DVT Ppx SubQ heparin held for IR LP today, will resume at 2PM Diet Regular Disposition TBD, pending PT/OT Code status Full Aga Mendoza MD PGY-3 Neurology Resident [facility] 03/04/24 Staffed with: (Dr. Monteiro) This patient is being followed by the Neurology Resident service. Contact attending directly during these hours: Sunday to 7:30-8:30 A.M. to Sunday 12-1:00 p.m. Primary Neurology service: [phone] Consult neurology service: [phone] Resident Stroke Service: [phone] If the patient belongs to the Stroke ESVIN service please contact the Stroke ESVIN directly. Cosigned by Renay Monteiro MD at 03/04/2024 1:56 PM EDT Associated attestation - Renay Monteiro MD - 03/04/2024 1:56 PM EDT Attending Attestation: I saw the patient. I performed the critical/damon portions of the service. I was directly involved inthe management and treatment plan of the patient. I reviewed the resident's note. Additional Notes/Findings: No subjective discomfort; observed hypoxia per pulse OX; stable on NC O2; no change with examination; initial CSF results are consistent with viral infection (VZV); will continue the current antiviral treatment; consult ID for further recommendation; CXR and possible pulmonary consultation for the underlying cause of hypoxia Renay Monteiro MD, PhD * Aga Mendoza MD - 03/03/2024 7:22 AM EDT Images from the original note were not included. [facility] Neurology General Neurology Primary Progress Note Primary Neurology service: [phone] Chief Complaint: confusion Interval History: Aaron Lewis is a 79 y.o. year old female who was admitted to inpatient Neurology for chief complaint of confusion. She was brought in by her son and history was corroborated between patient and son. She reports she started having symptoms of shingles on left forehead on 02/23. She visited the ED on 02/26 and was diagnosed with shingles and concern that it had spread to her eye. She was started on Valtrex, steroids and tobramycin- steroid eye drops. On , son noticed she had mixed up words through text but in person she seemed okay. By Sunday, she was very confused in person. Kept mixing up words, couldn't remember her son's name, kept replacing other verbs with the word sleep . On arrival, she had CTH that was unremarkable. She was then admitted to neurology service. EEG was done and showed encephalopathy, no other findings, therefore was discontinued. MRI brain with and without contrast showed no acute findings. Son requested that LP be done by IR as the patient reportedly had spinal leak after previous spinal surgery years ago, she might have hardware from that surgery, and his has had several chronic difficulties with CSF leaks. Overnight, son had asked that we test the patient for UTI and test drug screen since she is reportedly on Percocet at home. UA was ordered, but it was not thought to be appropriate to order UDS. Today, she was feeling nauseous after using the restroom. She is feeling anxious about the pending LP, although, after discussing, she felt reassured. She had little sleep overnight due to the noise of the monitors beeping, needing a new IV placed and urinary frequency/urge. Pertinent past Medical History/Family/Social History reviewed as per initial HPI. Pertinent Systems reviewed as per initial HPI, and negative as below except for mentioned above. Medications: 22.5 MME/Day Physical Exam Vital Signs: Vitals: 03/03/24 0347 BP: (!) 166/94 Pulse: 99 Resp: 22 Temp: 36.5 C (97.7 F) SpO2: 94% General: Normotensive, in no acute distress. Cardiac Examination: Heart: RRR, no murmurs, no rubs, no gallops. Carotids: No bruit Peripheral Vascular System: Peripheral pulses intact Neurological Examination: Higher Mental Function: Orientated to time, place, person Attention span and concentration intact; able to say days of week forward and backward Recent and Remote Memory Intact Language intact; able to name, repeat, follow commands and hold appropriate conversation. Fund of knowledge appropriate Ophthalmological Examination: Clear conjunctiva, no cataracts. Cranial Nerve Examination: II: Normal tracking, no evidence of hemianopia or other visual field defect. III, IV, & : EOM intact, no ptosis, no nystagmus seen. Pupils are equal and reactive to light. V: Facial sensation is intact. VII: no facial asymmetry, facial movement intact. VIII: hearing is normal. IX-X: Palate elevates in the midline. XI: Normal trapezius strength and/or movement. XII: Tongue movement is normal, position is midline and no fasciculations are observed. Tongue strength intact. Motor: Power -- No focal motor weakness noted in BL upper or lower extremities; pain in right shoulder from known rotator cuff injury and chronic RLE pain. Bulk and muscle tone are intact in BL upper and lower extremities. No rigidity or spasticity. No atrophy or abnormal movements noted. No dystonia, or motor tics. No bradykinesia, postural or kinetic tremor noted. No fasciculation or myotonia noted. No abnormal movements noticed. No evidence of pseudo bulbar paralysis; no sialorrhea, difficulties swallowing. Deep Tendon Reflexes: Right, Left: Biceps 1,1 Brachioradialis 1,1 Patellae 0,0 Achilles 0,0 Sensory examination: Intact to light touch throughout. Cerebellar: Able to do [id number] bilaterally; normal coordination Gait and station: Deferred, refer to PT note Pertinent Labs: UA negative CBC WNL Imaging: CT: no acute findings MRI brain with and without contrast: no acute findings, chronic microvascular changes Other Testing: EEG 1020: moderate generalized slowing Assessment: Aaron Lewis is a 79 yo female who has been diagnosed with L V1 shingles and prescribed Valtrex, steroids and eye drops but then became confused and was mixing up words. She was brought to the hospital and admitted for concern for VZV meningitis. CTH unremarkable. MRI unremarkable. Physical exam remarkable for healing shingles, difficult concentration, attention and mixing up words. 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 Monteiro) This patient is being followed by the Neurology Resident service. Contact attending directly during these hours: Sunday to 7:30-8:30 A.M. to Sunday 12-1:00 p.m. Primary Neurology service: [phone] Consult neurology service: [phone] Resident Stroke Service: [phone] If the patient belongs to the Stroke ESVIN service please contact the Stroke ESVIN directly. Cosigned by Renay Monteiro MD at 03/03/2024 1:54 PM EDT Associated attestation - Renay Monteiro MD - 03/03/2024 1:54 PM EDT Attending Attestation: I saw the patient. I performed the critical/damon portions of the service. I was directly involved inthe management and treatment plan of the patient. I reviewed the resident's note. Additional Notes/Findings: No event overnight; better subjectively; no longer feeling confused; brain MRI with contrast showedno acute change (subcortical and periventricular T2/FLAIR hyperintensity spots likely sequela of chronic ischemic small cerebrovascular disease; pending IR-guided LP and PT/OT evaluation for unsteadygait and discharge planning Renay Monteiro MD, PhD * Anna Baldwin, [facility] - 03/02/2024 4:23 AM EDT [facility] Department of Pharmacy Pharmacist to Physician Communication The dose of acyclovir for HSV/VZV infection of [employer] has been changed to 10 mg/kg every 12 hours per the [facility] approved renal dosing guidelines, based on an estimated creatinine clearance is 29.2 mL/min (A) (by C-G formula based on SCr of 1.45 mg/dL (H)). Thank you, Anna Baldwin RPH documented in [facility] Hospital course Narrative* Aga Mendoza MD - 03/07/2024 12:08 PM EDT Inpatient Discharge Summary BRIEF OVERVIEW Admitting Provider: Renay Monteiro MD Discharge Provider: Renay Monteiro MD Primary Care Physician at Discharge: JEREMIAH REED MD [phone] Admission Date: 03/02/2024 Discharge Date: 03/07/24 Primary Discharge Diagnosis VZV meningoencephalitis Secondary Discharge Diagnosis Shingles L V1 distribution and possibly in eye Discharge Disposition Final discharge disposition not confirmed Code Status at Discharge: Full Active Issues Requiring Follow-up Issue: Hospitalization, above diagnoses Responsible Individual: patient What is Needed: Follow up with PCP, follow up results of BMP Follow-up Appointments Arranged: No Issue: VZV meningitis Responsible Individual: patient and ID office What is Needed: Follow up with ID Follow-up Appointments Arranged: Will be scheduled Issue: Shingles around and possible in left eye Responsible Individual: patient What is Needed: Follow up with ophthalmology Follow-up Appointments Arranged: Referral provided Outpatient Follow-Up No future appointments. Referrals and Follow-ups to Schedule Basic Metabolic Panel (Once a week) Release to patient via MyChart?: Immediate Test Results Pending at Discharge Pending Labs Order Current Status Spinal Fluid culture includes gram stain, CSF Preliminary result DETAILS OF HOSPITAL STAY Presenting Problem/History of Present Illness Viral meningitis [A87.9] Aaron Lewis is a 79 y.o. year old female who was admitted to inpatient Neurology for chief complaint of photophobia and confusion in the setting of recent shingles exacerbation. The patient is moderately confused. The majority of history was collected from her son at bedside. He states that she had developed a shingles rash around her left eye extending into the left temporoparietal area starting on 02/23. She was initially started on steroids, valacyclovir, and TobraDex eyedrops after ED on 02/26. Her symptoms seemed to be improving, however, starting the day before presentation she developed profound confusion and mixing up words. She also complained of photophobia. Of note, the patient's son notes multiple bad experiences with lumbar punctures and post LP headaches in his spouse and in the patient. He was highly against performing a blind LP, but is open for anIR guided LP. Hospital Course On arrival, she had CTH that was unremarkable. She was then admitted to neurology service. EEG was done and showed encephalopathy, no other findings, therefore was discontinued. MRI brain with and without contrast showed no acute findings. Son requested that LP be done by IR as the patient reportedly had spinal leak after previous spinal surgery years ago, she might have hardware from that surgery, and his has had several chronic difficulties with CSF leaks. 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 CSF 03/04: 91 nucleated cells 97% lymphocytes, 2 RBC, 57 protein, 64 glucose, VZV+; OP 20, CP 4 cm H2O, 15 cc collected. ID recommend total of 10-14 days of treatment by IV as literature does not suggest benefit or oral therapy for meningitis. PICC line placed 03/05. PT/OT recommended SNF, but patient refused and preferred home health care. Physical Exam at Discharge Discharge Condition: good Pulse: 111 Resp: 18 BP: 135/76 Temp: 36.7 C (98.1 F) Weight: 88.6 kg (195 lb 5.2 oz) General: Normotensive, in no acute distress Cardiac Examination: Heart: RRR Neurological Examination: Higher Mental Function: Orientated to time, place, person Language intact Fund of knowledge appropriate Ophthalmological Examination: Clear conjunctiva, no cataracts. Cranial Nerve Examination: II: Normal tracking, no evidence of hemianopia or other visual field defect. III, IV, & : EOM intact, no ptosis, no nystagmus seen. Pupils are equal and reactive to light. V: Facial sensation is intact. VII: no facial asymmetry, facial movement intact. VIII: hearing is normal. IX-X: Palate elevates in the midline. XI: Normal trapezius strength and/or movement. XII: Tongue movement is normal, position is midline and no fasciculations are observed. Tongue strength intact. Motor: Power -- No focal motor weakness noted in BL upper or lower extremities; pain in right shoulder from known rotator cuff injury and chronic RLE pain. Bulk and muscle tone are intact in BL upper and lower extremities. No rigidity or spasticity. No atrophy or abnormal movements noted. Sensory examination: Intact to light touch throughout. Your medication list START taking these medications Instructions Last Dose Given Next Dose Due acyclovir 50 mg/mL injection Commonly known as: ZOVIRAX Infuse 17.7 mL (885 mg total) into a venous catheter every 12 (twelve) hours. End Date 03/11/2024 heparin lock flush (porcine) 10 unit/mL injection Infuse 1-5 mL (10-50 Units total) into a venous catheter as needed (line care per nursing agency protocol.). heparin lock flush (porcine) injection 100 unit/mL solution Infuse 1-5 mL (100-500 Units total) into a venous catheter as needed (line care per nursing agency protocol.). sodium chloride injection Infuse 10-20 mL into a venous catheter as needed for line care (line care per nursing agency protocol.). CONTINUE taking these medications Instructions Last Dose Given Next Dose Due acetaminophen 325 mg tablet Commonly known as: TYLENOL albuterol 90 mcg/actuation inhaler Commonly known as: PROVENTIL HFA;VENTOLIN HFA amLODIPine 2.5 mg tablet Commonly known as: NORVASC aspirin 81 mg baclofen 10 mg tablet Commonly known as: LIORESAL busPIRone 10 mg tablet Commonly known as: BUSPAR calcium carbonate 600 mg elemental (1,500 mg) tablet Commonly known as: OS-RAYMON cholecalciferol (vitamin D3) 2,000 units capsule gabapentin 300 mg capsule Commonly known as: NEURONTIN glucosamine-chondroitin 500-400 mg tablet meloxicam 15 mg tablet Commonly known as: MOBIC methylPREDNISolone 4 mg tablet Commonly known as: MEDROL (DEVANTE) nortriptyline 25 mg capsule Commonly known as: PAMELOR omeprazole 40 mg capsule Commonly known as: PriLOSEC oxyCODONE-acetaminophen 5-325 mg per tablet Commonly known as: PERCOCET TOBRADEX ST 0.3-0.05 % drops,suspension Generic drug: tobramycin-dexAMETHasone trospium 20 mg tablet Commonly known as: SANCTURA STOP taking these medications valACYclovir 1000 mg tablet Commonly known as: VALTREX Where to Get Your Medications These medications were sent to [facility]/pharmacy #[id number] - [place], [place] - [address] [address] heparin lock flush (porcine) 10 unit/mL injection heparin lock flush (porcine) injection 100 unit/mL solution sodium chloride injection You can get these medications from any pharmacy Bring a paper prescription for each of these medications acyclovir 50 mg/mL injection Aga Mendoza MD PGY-3 Neurology Resident [facility] Cosigned by Renay Monteiro MD at 03/07/2024 3:29 PM EDT Associated attestation - Renay Monteiro MD - 03/07/2024 3:29 PM EDT Attending Attestation: I saw the patient. I performed the critical/damon portions of the service. I was directly involved inthe management and treatment plan of the patient. I reviewed the resident's note. Additional Notes/Findings: No event overnight; normal examination; will be discharged to home with PICC line and home Health Service for completing the recommended IV acyclovir treatment for VZV meningitis Renay Monteiro MD, PhD documented in this encounterMer[facility] Plan of care note * Plan of Care - Gayla Mcwilliams RN - 03/07/2024 11:17 AM EDT Problem: Pain Goal: Patient goal is pain score less than 4, able to rest, and participant in treatment plan as appropriate Description: INTERVENTIONS: 1. Encourage patient or legal wire rope sales representative to report early pain and ask for pain medicine when needed 2. Assess pain using appropriate pain scale and include the scale used when documenting 3. Administer analgesics based on type and severity of pain and evaluate response within appropriate time frame 4. Implement non-pharmacological measures as appropriate and evaluate response 5. Consider cultural and social influences on pain and pain management 6. Notify LIP if interventions ineffective or patient reports new pain 7. Monitor vital signs including pulse ox, end-tidal CO2 based on pain intervention 8. Reassess pain per policy 9. Teach patient or legal wire rope sales representative interventions for comforting Outcome: Progressing Note: Evaluation of progress towards goal: pt is adequately medicated according to the MAR. Will continue to monitor Problem: Safety Goal: Patient will be injury free during hospitalization Description: INTERVENTIONS: 1. Assess patient's risk for falls and implement fall prevention plan of care per policy 2. Provide and maintain a safe environment 3. Proper use of double Identifiers 4. Medication administration using the 5 rights 5. Hand hygiene 6. Specimens are labeled at the bedside 7. Instruct patient/ patient wire rope sales representative about use of safety devices 8. Include patient/ patient wire rope sales representative in decisions related to safety Outcome: Progressing Note: Evaluation of progress towards goal: pt has been injury free this shift. Will continue to monitor and keep items in reach and educate to use the call button when in need of anything Problem: Infection Goal: Absence of infection during hospitalization Description: Interventions: 1. Assess and monitor for signs and symptoms of infection 2. Monitor lab/diagnostic results 3. Monitor all insertion sites i.e., indwelling lines, tubes and drains 4. Monitor endotracheal (as able) and nasal secretions for changes in amount and color 5. Administer medications as ordered 6. Instruct and encourage patient and family to use good hand hygiene technique 7. Identify and instruct patient/patient wire rope sales representative in use of appropriate isolation precautionsfor identified infection/symptoms 8. 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 Encourage and monitor nutritional status daily and consult mock up builder if indicated 10. Implement neutropenic guidelines as needed 11. Review exposure to history of communicable disease and recent travel history on admission 12. Encourage annual influenza vaccine 13. Encourage pneumonia vaccine Outcome: Progressing Note: Evaluation of progress towards goal: hand hygiene is preformed when entering and leaving the room. And no new s/s of infection are present. Will continue to monitor Problem: Knowledge Deficit Goal: Patient/patient wire rope sales representative demonstrates understanding of disease process, treatment plan,medications, and discharge instructions Description: INTERVENTIONS 1. Complete learning assessment and assess knowledge base 2. Provide teaching at level of understanding 3. Provide teaching via preferred learning method(s) Outcome: Progressing Note: Evaluation of progress towards goal: pt and family verbalized and demonstrates understanding of plan of care and medications being given Problem: Discharge Planning Goal: Discharge to post-acute care, other facility, or home with appropriate resources Description: Patient's goal is: INTERVENTIONS 1. Conduct assessment to determine patient/family and health care team treatment goals, and need for post-acute services based on payer coverage, community resources, and patient preferences, and barriers to discharge 2. Coordinate with Social work, Care Navigation, and Utilization Review to arrange appropriate level of services according to patient's needs based on patient preference and payer coverage in collaboration with the physician and health care team 3. Address psychosocial, clinical, and financial barriers to discharge as identified in assessment in conjunction with the patient/family and health care team 4. Consult appropriate ancillary services (i.e.. PT/OT/ST, etc) as needed 5. Communicate with and update the patient/family, physician, and health care team regarding progress on the discharge plan 6. Identify discharge learning needs (meds, wound care, etc). 7. Arrange for needed discharge transportation as appropriate Outcome: Progressing Note: Evaluation of progress towards goal: pt will be discharged when deemed appropriate. Will continue to answer follow up questions Problem: Moderate - High Risk Fall Score Description: [place] Fall Score of =/> 25 or indicated by [facility] Assessment Goal: Patient should be free from fall Description: Interventions: 1. [place] to environment 2. Hourly rounds addressing the 4 P's (Pain, Positioning, Possessions, Potty) 3. Clear area of hazards (spills, clutter, electrical cords, unnecessary equipment) 4. Place equipment (bed & TV controls, call light, phone, urinal) within reach 5. Encourage patient to wear glasses and hearing aides as appropriate 6. Maintain bed in lowest position 7. Lock wheels on bed/wheelchair 8. Provide adequate lighting, including night light 9. Assess need for additional bedding, food/fluids, pain med's prior to sleep/routinely 10. Provide gripper slippers or personal non-skid footwear 11. Teach patient and patient wire rope sales representative to maintain environment for safety and engage in all aspects of fall prevention program 12. Remind patient to call for help before getting out of bed 13. Initiate bed/chair/exit alarms supportive devices as appropriate, (chair wedge, no-skid floor mat, raised edge mattress, hip protectors) 14. Locate patient bed assignment for optimal visualization 15. Evaluate and identify Safe Patient Handling Equipment needs 16. Provide supervision when out of bed or chair 17. Utilize gait belt as needed to assist with ambulation 18. Place adaptive equipment (cane, walker) within reach 19. Request patient wire rope sales representative bring adaptive equipment/mobility aids from home or obtain and provide as needed 20. Consult pharmacy regarding effects of med's affecting mobility, cognition, and alternatives 21. Obtain physician order for PT if risk factors associated with mobility are present 22. Obtain physician order for OT as appropriate 23. Utilize diversional activities 24. Educate patient and patient wire rope sales representative how to maintain a safe environment during visitationtimes (notify nurse prior to leaving bedside) 25. Consider appropriateness of medical or non-medical staffing coordinator 26. Set up voiding schedule as appropriate (every 2 hours) Outcome: Progressing Note: Evaluation of progress towards goal: Pt has been fall free this shift. Will continue to educate pt on fall risk and assess needs before leaving the room. Items and call light are within reach Problem: Urinary Incontinence Goal: Perineal skin integrity is maintained or improved Description: INTERVENTIONS 1. Assess genitourinary system, perineal skin, labs (urinalysis), and history of incontinence to include past management, aggravating, and alleviating factors 2. Keep skin clean and dry 3. Apply skin protectant 4. Develop skin care regimen 5. Provide privacy when changing patients incontinence device to maintain their dignity 6. Consider placing an indwelling catheter 7. Collaborate with interdisciplinary team and initiate plans and interventions as needed Outcome: Progressing Note: Evaluation of progress towards goal: Problem: Multi-Drug Resistant Organism / Rule-Out Infection Prevention Goal: Prevent transmission of infection Description: INTERVENTIONS 1. Place patient in private room or in room with patient with same disease 2. Discard single-use items 3. Clean reusable equipment between patients 4. Wear gloves for direct and indirect contact with patient or contaminants 5. Change gloves between tasks and procedures 6. Wash hands before and after caring for each patient 7. Wear appropriate personal protective equipment in relation to the indicated isolation type 8. Place appropriate isolation signage on patient's door 9. Provide patient/ patient wire rope sales representative with isolation education. Outcome: Progressing Note: Evaluation of progress towards goal: proper hand hygiene is performed when entering and exiting the room and proper PPE is worn during procedures [facility] [employer]10-25-2024 Progress note* PT/OT/PUTTY GLAZER - JUDI Amaya/Kosta - 03/07/2024 9:55 AM EDT Occupational Therapy Treatment Discharge Recommendations OT Recommendations : [facility] 6 Clicks: Daily Activity Putting on and taking off regular lower body clothing?: A lot Bathing (including washing, rinsing, drying)?: A lot Toileting, which includes using toilet, bedpan or urinal?: A little Putting on and taking off regular upper body clothing?: A little Taking care of personal grooming such as brushing teeth?: A little Eating meals?: None Scoring Daily Activity Raw Score: 17 CMS G Code Modifier: CK OT Treatment/Interventions: Functional transfer training, ADL retraining, UE strengthening/ROM, Endurance training, Patient/family training, Equipment eval/education, Balance, Home management, Bed mobility, Compensatory technique education, Functional activities OT Frequency: 4-5days/week OT Duration: LOS Assessment Patient Assessment Therapy Problem List: Decreased ADL status, Decreased balance, Decreased endurance, Decreased high-level ADLs, Decreased mobility, Decreased self-care trans, Decreased UE strength, Decreased cognition, Decreased safe judgement during ADL Patient Response to Treatment: Slow progress, decreased activity tolerance Mood/Affect: Anxious Rehab Prognosis: Good, With continued OT status post acute discharge Visit RN Communication: Yes Medical Record Reviewed: Yes OT Type of Visit: Treatment Precautions Activity: Activity as tolerated per early mobility guidelines. okay to see per RN Equipment: gait belt, RW Telemetry/Flow Worker: No Other: Fall risk, LBP Pain Assessment Pain Assessment: 0-10 Pain Type: Acute pain Pain Location: Breast Pain Orientation: Right Pain Descriptors: Sharp, Shooting Pain Intervention(s): Repositioned, Ambulation/increased activity (RN made aware) Response to Interventions: Pain unchanged ADL / IADL Hand Dominance: Right Where Assessed: At toilet, Sitting at sink, Standing at sink, Edge of bed Grooming Assistance: Contact guard assist Grooming Deficit: Wash/dry hands, Wash/dry face, Oral hygiene Bathing/Showering Assistance: Contact guard assist, Max assist Bathing/Showering Deficit: Chest, Right arm, Left arm, Perineal area, Buttocks Toilet/Commode Assistance: Min assist Toilet/Commode Deficit: Clothing management up, Clothing management down UE Dressing Assistance: Standby assist LE Dressing Assistance: Min assist LE Dressing Deficit: Pull up over right hip, Pull up over left hip Footwear Assistance: Min assist Footwear Deficit: R shoe, L shoe Other: pt completed LBD of donning B slippers while sitting at EOB. min A required to complete. pt completed toileting x2 during session, min A required for clothing management up/down. pt completed bathing, dressing, and grooming tasks while standing/sitting at the sink. CGA required for grooming tasks and UBB while standing. pt able to complete cassie wash while standing with CGA. max A required to reach buttocks. dressing completed while seated. SBA provided UBD. min A required for LBD to thread B feet through underwear and to don to waist. increased time and effort required to complete selfcare tasks. pt required frequent rest breaks d/t fatigue and anxiety. pt impuslive with transitions within bathroom despite cues provided for safety. Home Management - IADL Other: pt completed LBD of donning B slippers while sitting at EOB. min A required to complete. pt completed toileting x2 during session, min A required for clothing management up/down. pt completed bathing, dressing, and grooming tasks while standing/sitting at the sink. CGA required for grooming tasks and UBB while standing. pt able to complete cassie wash while standing with CGA. max A required to reach buttocks. dressing completed while seated. SBA provided UBD. min A required for LBD to thread B feet through underwear and to don to waist. increased time and effort required to complete selfcare tasks. pt required frequent rest breaks d/t fatigue and anxiety. pt impuslive with transitions within bathroom despite cues provided for safety. Cognition Orientation Level: Oriented X4 Other: pt impuslive with transfers, cues required for safety throughout session. pt was very anxious during tx. Bed Mobility Supine to Sit: Contact guard assist Other: HOB elevated and use of rail required. CGA provided for safety. pt left in the chair at end of session with call light within reach and with RN aware. Transfers Sit to Stand: Min assist Stand to Sit: Modified independent, Min assist Toilet Transfers: Min assist Other: min A required for all transfers. cues required for safe hand placement. no LOB noted upon standing, however pt was mildly unsteady. Gait Gait Assistance: Min assist Assistive Device: Rolling walker Gait Distance: 15ft + 5ft x2 + 10ft Limiting Factors to Gait: Weakness, Fatigue, Decreased safety Other: pt requires min A for safety and stability. pt fatigues quickly. cues required for safe RW management to help decrease fall risk. Balance Sitting Balance: Static: Good Sitting Balance: Dynamic: Fair Standing Balance: Static: Fair Standing Balance: Dynamic: Fair (-) Other: pt stood at the sink for ADLs for approx 8 mins with CGA required. single UE support required for stability during tasks. pt sat unsupported during ADLs for approx 8 mins with SBA provided. ptrequires B UE support from RW with functional mobility and with min A required. no major LOB noted throughout session. Activity Tolerance Endurance: Tolerates 30 minutes activity with rest breaks Other: fair overall tolerance noted throughout session. pt is limited by weakness, fatigue, and decreased activity tolerance and safety awareness. Plan Occupational Therapy Care Plan Occupational Therapy Care Plan (Active) Template: OT - Occupational Therapy Problem: Activity Tolerance Dates: Start: 03/04/24 Disciplines: OT Goal: Tolerate 30 minutes of activity WITH rest breaks Dates: Start: 03/04/24 Expected End: 03/25/24 Description: Goal Description: Disciplines: OT Outcomes Date/Time User Outcome 03/07/2453 JUDI Amaya/Kosta Progressing 03/05/24 1602 JENNIFER Carpenter/Kosta Progressing Goal Note filed on 03/07/24 0953 by JUDI Amaya/Kosta Evaluation of progress towards goal: Problem: Bed Mobility Dates: Start: 03/04/24 Disciplines: OT Goal: Patient will perform bed mobility with Modified [place] Dates: Start: 03/04/24 Expected End: 03/25/24 Description: Goal Description: sup to sit and sit to sup for EOB sitting during functional activity Disciplines: OT Outcomes Date/Time User Outcome 03/07/2453 HUGO Amaya Progressing 03/05/24 1602 JENNIFER Carpenter/Kosta Progressing Goal Note filed on 03/07/24 0953 by JUDI Amaya/Kosta Evaluation of progress towards goal: Problem: Functional Mobility Dates: Start: 03/04/24 Disciplines: OT Goal: Patient will perform functional mobility with Supervision Dates: Start: 03/04/24 Expected End: 03/25/24 Description: Goal Description: use of walker and good safety Disciplines: OT Outcomes Date/Time User Outcome 03/07/2453 HUGO Amaya Progressing 03/05/24 1602 Jena Mehta OTR/L Progressing Goal Note filed on 03/07/24 0953 by JUDI Amaya/Kosta Evaluation of progress towards goal: Problem: Other (Customize) Dates: Start: 03/04/24 Disciplines: OT Goal: Improve Dates: Start: 03/04/24 Expected End: 03/25/24 Description: Pt will demo all ADLs mod I/IND using AE/DME/compensatory strategies PRN and good safety. Disciplines: OT Outcomes Date/Time User Outcome 03/07/2453 HUGO Amaya Progressing 03/05/24 1602 Jena Mehta OTR/L Progressing Goal Note filed on 03/07/24 0953 by JUDI Amaya/Kosta Evaluation of progress towards goal: Problem: Sitting Balance Dates: Start: 03/04/24 Disciplines: OT Goal: Improve balance to good Dates: Start: 03/04/24 Expected End: 03/25/24 Description: Pt will demo good unsupported sitting balance 100% of the time during ADL/functional reaching tasks. Disciplines: OT Outcomes Date/Time User Outcome 03/07/2453 HUGO Amaya Progressing 03/05/24 1602 Jena Mehta OTR/L Progressing Goal Note filed on 03/07/24 0953 by JUDI Amaya/Kosta Evaluation of progress towards goal: Problem: Standing Balance Dates: Start: 03/04/24 Disciplines: OT Goal: Improve balance to good Dates: Start: 03/04/24 Expected End: 03/25/24 Description: Pt will demo good standing balance with use of UE support PRN for 5+ minutes for increased participation in ADLs. Disciplines: OT Outcomes Date/Time User Outcome 03/07/2453 HUGO Amaya Progressing 03/05/24 1602 Jena Mehta OTR/L Progressing Goal Note filed on 03/07/24 0953 by JUDI Amaya/Kosta Evaluation of progress towards goal: Problem: Strength Dates: Start: 03/04/24 Disciplines: OT Goal: Improve strength Dates: Start: 03/04/24 Expected End: 03/25/24 Description: Pt will demo good understanding of BUE HEP for increased strength to 5/5 during ADLs. Disciplines: OT Goal Note filed on 03/05/24 1602 by JENNIFER Carpenter/Kosta Evaluation of progress towards goal: Problem: Toilet Transfers Dates: Start: 03/04/24 Disciplines: OT Goal: Patient will perform toilet transfers with Supervision Dates: Start: 03/04/24 Expected End: 03/25/24 Description: Goal Description: Disciplines: OT Outcomes Date/Time User Outcome 03/07/24 0953 HUGO Amaya Progressing Goal Note filed on 03/07/24 0953 by HUGO Amaya Evaluation of progress towards goal: Problem: Transfers Dates: Start: 03/04/24 Disciplines: OT Goal: Patient will perform transfers with Supervision Dates: Start: 03/04/24 Expected End: 03/25/24 Description: Goal Description: Sit to stand, stand to sit transfers with good safety and use of AD PRN Disciplines: OT Outcomes Date/Time User Outcome 03/07/24 0953 HUGO Amaya Progressing 03/05/24 1602 JENNIFER Carpenter/Kosta Progressing Goal Note filed on 03/07/24 0953 by HUGO Amaya Evaluation of progress towards goal: Occupational Therapy Care Plan (Resolved) There are no resolved problems. Principal Problem: Viral meningitis Active Problems: Seizure ([facility] Cosigned by ROXANNE Vazquez at 03/07/2024 2:40 PM EDT Associated attestation - Kelsi Ma OTR/L - 03/07/2024 2:40 PM EDT I have reviewed and agree with this note and education documentation for this visit. [facility] [id number] Progress note* PT/OT/PUTTY GLAZER - Fabiola Carter, ART SUPERVISOR - 03/07/2024 9:50 AM EDT Physical Therapy Treatment Discharge Recommendations PT Recommendations: [facility] Comments: Pt would benefit from further skilled therapy services to address deficits in functional strength, activity tolerance and decreased functional independence with mobility s/p acute illness and prolonged immobility. 6 Clicks: Basic Mobility Turning from your back to your side while in a flat bed without using bed rails?: A little Moving from lying on your back to sitting on side of flat bed without using bed rails?: A lot Moving to and from bed to a chair (including w/c)?: A little Standing up from a chair using your arms (e.g. w/c or bedside chair)?: A little To walk in hospital room?: A little Climbing 3-5 steps with a railing?: Total Scoring 6 Clicks: Basic Mobility Raw Score: 15 CMS G Code Modifier: CK Patient Response to Treatment: Slow progress, decreased activity tolerance Assessment Patient Assessment Patient Response to Treatment: Slow progress, decreased activity tolerance Visit RN Communication: Yes Medical Record Reviewed: Yes PT Type of Visit: Treatment Precautions Activity: Activity as tolerated per early mobility guidelines, ok to see for therapy per Ewelina ALVARES Equipment: Gait belt, RW, chair alarm/bed alarm Telemetry/Flow Worker: No Oxygen Used: room air Other: Fall risk, LBP Pain Assessment Pain Assessment: No/denies pain (Patient c/o intermittent sharp pain in R breast during tx. Ewelina ALVARES, notified and checked on patient) Cognition Following Commands: Follows one step commands with repetition, Follows one step commands with increased time Safety Judgment: Decreased awareness of need for safety, Decreased awareness of need for assistance Awareness of Errors: Assistance required to identify errors made, Assistance required to correct errors made Insight of Deficits: Decreased awareness of deficits Other: Decrease safety awareness with mobility noted. Education provided on improved safety with mobility and fall prevention. Bed Mobility Supine to Sit: Contact guard assist, Verbal cues Sit to Supine: Unable to assess (Pt up in chair with call light and chair alarm on. RN aware.) Other: HOB slightly elevated Transfers Sit to Stand: Min assist, Verbal cues Stand to Sit: Min assist, Verbal cues Bed to Chair: Min assist, Verbal cues Toilet Transfers: Min assist (x2 toilet transfers completed) Other: Patient impulsive, decrease safety awareness noted. Education provided to slow down for improved safety and cues for safety with hand placement to reduce the risk of falls. Gait Base of Support: Within Functional Limits Pattern: Decreased gera, Forward trunk, R Decreased foot clearance, L Decreased foot clearance Gait Assistance: Min assist Assistive Device: Rolling walker Gait Distance: 15', 10', 5'x2 Limiting Factors to Gait: Weakness, Fatigue, Decreased safety Other: Patient fatigues quickly, decrease safety awareness noted with turns. Cues for improved safety awareness with walker. Assist for safety. Balance Sitting Balance: Static: Good Sitting Balance: Dynamic: Fair Standing Balance: Static: Fair Standing Balance: Dynamic: Fair (Fair-) Other: Patient stood at sink ~8 minutes for ADL focusing on improved activity [place] and balance. Patient required at least 1 UE support for balance. Patient sat unsupported on shower chair at sink ~8 minutes for ADL. Activity Tolerance Endurance: Tolerates 30 minutes activity with rest breaks Other: Focused on functional mobility and improved safety awareness. Plan Physical Therapy Care Plan Physical Therapy Care Plan (Active) Template: PT - Physical Therapy Problem: Activity Tolerance Dates: Start: 03/04/24 Disciplines: PT Goal: Tolerate > 30 minutes of activity WITH rest breaks Dates: Start: 03/04/24 Expected End: 03/18/24 Description: Goal Description:Patient to perform functional range / strength exercises to improve functional strength, activity tolerance and balance for improved independence and safety with mobility. Disciplines: PT Outcomes Date/Time User Outcome 03/07/24 0941 Fabiola Carter PTA Progressing 03/05/24 153 Winnie Handy PTA Progressing Goal Note filed on 03/05/24 153 by Winnie Handy PTA Evaluation of progress towards goal: Problem: Bed Mobility Dates: Start: 03/04/24 Disciplines: PT Goal: Patient will perform bed mobility with Modified [place] Dates: Start: 03/04/24 Expected End: 03/18/24 Description: Goal Description: Disciplines: PT Outcomes Date/Time User Outcome 03/07/24 0941 Fabiola Carter ART SUPERVISOR Progressing 03/05/24 1536 Winnie Handy PTA Progressing Goal Note filed on 03/05/24 153 by Winnie Handy PTA Evaluation of progress towards goal: Problem: Gait Dates: Start: 03/04/24 Disciplines: PT Goal: Patient will perform gait with Modified [place] Dates: Start: 03/04/24 Expected End: 03/18/24 Description: With__RW__,__>50__feet Goal Description: Disciplines: PT Outcomes Date/Time User Outcome 03/07/24 0941 Fabiola Carter, ART SUPERVISOR Progressing 03/05/24 1536 Winnie Handy ART SUPERVISOR Progressing Goal Note filed on 03/05/24 153 by Winnie Handy PTA Evaluation of progress towards goal: Problem: Sitting Balance Dates: Start: 03/04/24 Disciplines: PT Goal: Improve balance to good Dates: Start: 03/04/24 Expected End: 03/18/24 Description: Static Dynamic Disciplines: PT Outcomes Date/Time User Outcome 03/07/24 0941 Fabiola Carter, ART SUPERVISOR Progressing 03/05/24 1536 Winnie Handy ART SUPERVISOR Progressing Goal Note filed on 03/05/24 153 by Winnie Handy PTA Evaluation of progress towards goal: Problem: Standing Balance Dates: Start: 03/04/24 Disciplines: PT Goal: Improve balance to good Dates: Start: 03/04/24 Expected End: 03/18/24 Description: With bilat UE support Disciplines: PT Outcomes Date/Time User Outcome 03/07/24 0941 Fabiola Carter, ART SUPERVISOR Progressing 03/05/24 1536 Winnie Handy ART SUPERVISOR Progressing Goal Note filed on 03/05/24 1536 by Winnie Handy PTA Evaluation of progress towards goal: Problem: Strength Dates: Start: 03/04/24 Disciplines: PT Goal: Improve strength Dates: Start: 03/04/24 Expected End: 03/18/24 Description: Of extremity/ location: To facilitate: Disciplines: PT Outcomes Date/Time User Outcome 03/05/24 1536 Winnie Handy ART SUPERVISOR Progressing Goal Note filed on 03/05/24 153 by Winnie Handy PTA Evaluation of progress towards goal: Problem: Transfers Dates: Start: 03/04/24 Disciplines: PT Goal: Patient will perform transfers with Modified [place] Dates: Start: 03/04/24 Expected End: 03/18/24 Description: Goal Description:Patient to perform mobility with good safety awareness. Disciplines: PT Outcomes Date/Time User Outcome 03/07/24 0941 Fabiola Carter PTA Progressing 03/05/24 1536 Winnie Handy PTA Progressing Goal Note filed on 03/05/241535 by Winnie Handy PTA Evaluation of progress towards goal: Physical Therapy Care Plan (Resolved) There are no resolved problems. Principal Problem: Viral meningitis Active Problems: Seizure ([facility]) Cosigned by Gissell Friend PT at 03/07/2024 11:28 AM EDT Associated attestation - Gissell Friend PT - 03/07/2024 11:28 AM EDT I have reviewed and agree with this note and education documentation for this visit. [facility]10-25-2024 Plan of care note* Plan of Care - Fannie Rooney RN - 03/07/2024 3:23 AM EDT Problem: Pain Goal: Patient goal is pain score less than 4, able to rest, and participant in treatment plan as appropriate Description: INTERVENTIONS: 1. Encourage patient or legal wire rope sales representative to report early pain and ask for pain medicine when needed 2. Assess pain using appropriate pain scale and include the scale used when documenting 3. Administer analgesics based on type and severity of pain and evaluate response within appropriate time frame 4. Implement non-pharmacological measures as appropriate and evaluate response 5. Consider cultural and social influences on pain and pain management 6. Notify LIP if interventions ineffective or patient reports new pain 7. Monitor vital signs including pulse ox, end-tidal CO2 based on pain intervention 8. Reassess pain per policy 9. Teach patient or legal wire rope sales representative interventions for comforting Outcome: Progressing Note: Evaluation of progress towards goal: Pain is managed to a tolerable level with PRN pain meds and non-pharm interventions, assessments completed, VS monitored, patient encouraged to report pain early, med administration as ordered Problem: Safety Goal: Patient will be injury free during hospitalization Description: INTERVENTIONS: 1. Assess patient's risk for falls and implement fall prevention plan of care per policy 2. Provide and maintain a safe environment 3. Proper use of double Identifiers 4. Medication administration using the 5 rights 5. Hand hygiene 6. Specimens are labeled at the bedside 7. Instruct patient/ patient wire rope sales representative about use of safety devices 8. Include patient/ patient wire rope sales representative in decisions related to safety Outcome: Progressing Note: Evaluation of progress towards goal: Patient safety is maintained. Patient is free from injury, side rails are up x2, call light is within reach, and bed is in lowest position. Problem: Infection Goal: Absence of infection during hospitalization Description: Interventions: 1. Assess and monitor for signs and symptoms of infection 2. Monitor lab/diagnostic results 3. Monitor all insertion sites i.e., indwelling lines, tubes and drains 4. Monitor endotracheal (as able) and nasal secretions for changes in amount and color 5. Administer medications as ordered 6. Instruct and encourage patient and family to use good hand hygiene technique 7. Identify and instruct patient/patient wire rope sales representative in use of appropriate isolation precautionsfor identified infection/symptoms 8. 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 Encourage and monitor nutritional status daily and consult mock up builder if indicated 10. Implement neutropenic guidelines as needed 11. Review exposure to history of communicable disease and recent travel history on admission 12. Encourage annual influenza vaccine 13. Encourage pneumonia vaccine Outcome: Progressing Note: Evaluation of progress towards goal: Handwashing and standard precautions maintained. Patientremains free from infection through shift and has not shown any additional signs of infection at this time. Will continue to educate on infection prevention. Problem: Knowledge Deficit Goal: Patient/patient wire rope sales representative demonstrates understanding of disease process, treatment plan,medications, and discharge instructions Description: INTERVENTIONS 1. Complete learning assessment and assess knowledge base 2. Provide teaching at level of understanding 3. Provide teaching via preferred learning method(s) Outcome: Progressing Note: Evaluation of progress towards goal: Patient is included in plan of care. All questions are answered at this time. Will continue to educate. Problem: Discharge Planning Goal: Discharge to post-acute care, other facility, or home with appropriate resources Description: Patient's goal is: INTERVENTIONS 1. Conduct assessment to determine patient/family and health care team treatment goals, and need for post-acute services based on payer coverage, community resources, and patient preferences, and barriers to discharge 2. Coordinate with Social work, Care Navigation, and Utilization Review to arrange appropriate level of services according to patient's needs based on patient preference and payer coverage in collaboration with the physician and health care team 3. Address psychosocial, clinical, and financial barriers to discharge as identified in assessment in conjunction with the patient/family and health care team 4. Consult appropriate ancillary services (i.e.. PT/OT/ST, etc) as needed 5. Communicate with and update the patient/family, physician, and health care team regarding progress on the discharge plan 6. Identify discharge learning needs (meds, wound care, etc). 7. Arrange for needed discharge transportation as appropriate Outcome: Progressing Note: Evaluation of progress towards goal: Patient is included in all discharge planning. Social work, PT/OT are involved. Plan to discharge home with home health care for antibiotic infusions. [facility]10-24-2024 Progress note* Discharge Planning Note - Radha Mejias - 03/06/2024 3:52 PM EDT DISCHARGE PLANNING NOTE Referral sent to [facility] [place], [place] [facility] - (P# ; F# ) [facility]10-24-2024 Plan of care note* Plan of Care - Carolin Jerome RN - 03/06/2024 12:46 PM EDT Problem: Pain Goal: Patient goal is pain score less than 4, able to rest, and participant in treatment plan as appropriate Description: INTERVENTIONS: 1. Encourage patient or legal wire rope sales representative to report early pain and ask for pain medicine when needed 2. Assess pain using appropriate pain scale and include the scale used when documenting 3. Administer analgesics based on type and severity of pain and evaluate response within appropriate time frame 4. Implement non-pharmacological measures as appropriate and evaluate response 5. Consider cultural and social influences on pain and pain management 6. Notify LIP if interventions ineffective or patient reports new pain 7. Monitor vital signs including pulse ox, end-tidal CO2 based on pain intervention 8. Reassess pain per policy 9. Teach patient or legal wire rope sales representative interventions for comforting Outcome: Progressing Note: Evaluation of progress towards goal: Pt has PRN pain meds available during shift, will continue to monitor. Problem: Safety Goal: Patient will be injury free during hospitalization Description: INTERVENTIONS: 1. Assess patient's risk for falls and implement fall prevention plan of care per policy 2. Provide and maintain a safe environment 3. Proper use of double Identifiers 4. Medication administration using the 5 rights 5. Hand hygiene 6. Specimens are labeled at the bedside 7. Instruct patient/ patient wire rope sales representative about use of safety devices 8. Include patient/ patient wire rope sales representative in decisions related to safety Outcome: Progressing Note: Evaluation of progress towards goal: Pt environment safe and items within reach during shift. Problem: Infection Goal: Absence of infection during hospitalization Description: Interventions: 1. Assess and monitor for signs and symptoms of infection 2. Monitor lab/diagnostic results 3. Monitor all insertion sites i.e., indwelling lines, tubes and drains 4. Monitor endotracheal (as able) and nasal secretions for changes in amount and color 5. Administer medications as ordered 6. Instruct and encourage patient and family to use good hand hygiene technique 7. Identify and instruct patient/patient wire rope sales representative in use of appropriate isolation precautionsfor identified infection/symptoms 8. 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 Encourage and monitor nutritional status daily and consult mock up builder if indicated 10. Implement neutropenic guidelines as needed 11. Review exposure to history of communicable disease and recent travel history on admission 12. Encourage annual influenza vaccine 13. Encourage pneumonia vaccine Outcome: Progressing Note: Evaluation of progress towards goal: Pt afebrile, vss, will continue to monitor during shift. Problem: Knowledge Deficit Goal: Patient/patient wire rope sales representative demonstrates understanding of disease process, treatment plan,medications, and discharge instructions Description: INTERVENTIONS 1. Complete learning assessment and assess knowledge base 2. Provide teaching at level of understanding 3. Provide teaching via preferred learning method(s) Outcome: Progressing Note: Evaluation of progress towards goal: Discussed plan with pt and answered questions as needed during shift. Problem: Moderate - High Risk Fall Score Description: [place] Fall Score of =/> 25 or indicated by [facility] Assessment Goal: Patient should be free from fall Description: Interventions: 1. [place] to environment 2. Hourly rounds addressing the 4 P's (Pain, Positioning, Possessions, Potty) 3. Clear area of hazards (spills, clutter, electrical cords, unnecessary equipment) 4. Place equipment (bed & TV controls, call light, phone, urinal) within reach 5. Encourage patient to wear glasses and hearing aides as appropriate 6. Maintain bed in lowest position 7. Lock wheels on bed/wheelchair 8. Provide adequate lighting, including night light 9. Assess need for additional bedding, food/fluids, pain med's prior to sleep/routinely 10. Provide gripper slippers or personal non-skid footwear 11. Teach patient and patient wire rope sales representative to maintain environment for safety and engage in all aspects of fall prevention program 12. Remind patient to call for help before getting out of bed 13. Initiate bed/chair/exit alarms supportive devices as appropriate, (chair wedge, no-skid floor mat, raised edge mattress, hip protectors) 14. Locate patient bed assignment for optimal visualization 15. Evaluate and identify Safe Patient Handling Equipment needs 16. Provide supervision when out of bed or chair 17. Utilize gait belt as needed to assist with ambulation 18. Place adaptive equipment (cane, walker) within reach 19. Request patient wire rope sales representative bring adaptive equipment/mobility aids from home or obtain and provide as needed 20. Consult pharmacy regarding effects of med's affecting mobility, cognition, and alternatives 21. Obtain physician order for PT if risk factors associated with mobility are present 22. Obtain physician order for OT as appropriate 23. Utilize diversional activities 24. Educate patient and patient wire rope sales representative how to maintain a safe environment during visitationtimes (notify nurse prior to leaving bedside) 25. Consider appropriateness of medical or non-medical staffing coordinator 26. Set up voiding schedule as appropriate (every 2 hours) Outcome: Progressing Note: Evaluation of progress towards goal: Pt remains free from falls, bed alarm maintained as needed, will continue to monitor during shift. Problem: Urinary Incontinence Goal: Perineal skin integrity is maintained or improved Description: INTERVENTIONS 1. Assess genitourinary system, perineal skin, labs (urinalysis), and history of incontinence to include past management, aggravating, and alleviating factors 2. Keep skin clean and dry 3. Apply skin protectant 4. Develop skin care regimen 5. Provide privacy when changing patients incontinence device to maintain their dignity 6. Consider placing an indwelling catheter 7. Collaborate with interdisciplinary team and initiate plans and interventions as needed Outcome: Progressing Note: Evaluation of progress towards goal: output monitored during shift. [facility]10-24-2024 Progress note* Discharge Planning Note - Lisa Guzman RN - 03/06/2024 11:10 AM EDT DISCHARGE PLANNING NOTE Follow-up Discharge Planning Progress Note Per RN during discharge transition rounds, barriers to discharge are: Home care and IV infusion forIV antibiotics at home. Discharge Plan: [facility] can clinically accept, verifying patient benefits. Tentative plan. Patient will discharge tomorrow, with plan for her second dose- Around 5pm or so parmjit started at home. Son available to pick her up after 4 tomorrow and plan for him and sister to meet with home care for teaching. Await [facility] on verification and time frame for IV antibiotics to be delivered. Prescription and lab orders faxed to [facility]. Care Navigation will continue to follow for any discharge needs. - Lisa Guzman RN 03/06/24 11:17 AM [facility] [employer] [id number] Progress note* Discharge Planning Note - Neli Rosa - 03/06/2024 8:38 AM EDT DISCHARGE PLANNING NOTE Referral sent to [facility] [place] (P# [phone] ; F# [phone]) [facility] [id number] Plan of care note* Plan of Care - Tashia Redding RN - 03/05/2024 10:27 PM EDT Problem: Pain Goal: Patient goal is pain score less than 4, able to rest, and participant in treatment plan as appropriate Description: INTERVENTIONS: 1. Encourage patient or legal wire rope sales representative to report early pain and ask for pain medicine when needed 2. Assess pain using appropriate pain scale and include the scale used when documenting 3. Administer analgesics based on type and severity of pain and evaluate response within appropriate time frame 4. Implement non-pharmacological measures as appropriate and evaluate response 5. Consider cultural and social influences on pain and pain management 6. Notify LIP if interventions ineffective or patient reports new pain 7. Monitor vital signs including pulse ox, end-tidal CO2 based on pain intervention 8. Reassess pain per policy 9. Teach patient or legal wire rope sales representative interventions for comforting Outcome: Progressing Note: Evaluation of progress towards goal: Pt encouraged to report pain on a scale of 1-10. PRN pain medications available Problem: Safety Goal: Patient will be injury free during hospitalization Description: INTERVENTIONS: 1. Assess patient's risk for falls and implement fall prevention plan of care per policy 2. Provide and maintain a safe environment 3. Proper use of double Identifiers 4. Medication administration using the 5 rights 5. Hand hygiene 6. Specimens are labeled at the bedside 7. Instruct patient/ patient wire rope sales representative about use of safety devices 8. Include patient/ patient wire rope sales representative in decisions related to safety Outcome: Progressing Note: Evaluation of progress towards goal: Pt. Remains injury free this hospitalization, safety precautions maintained. Problem: Infection Goal: Absence of infection during hospitalization Description: Interventions: 1. Assess and monitor for signs and symptoms of infection 2. Monitor lab/diagnostic results 3. Monitor all insertion sites i.e., indwelling lines, tubes and drains 4. Monitor endotracheal (as able) and nasal secretions for changes in amount and color 5. Administer medications as ordered 6. Instruct and encourage patient and family to use good hand hygiene technique 7. Identify and instruct patient/patient wire rope sales representative in use of appropriate isolation precautionsfor identified infection/symptoms 8. 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 Encourage and monitor nutritional status daily and consult mock up builder if indicated 10. Implement neutropenic guidelines as needed 11. Review exposure to history of communicable disease and recent travel history on admission 12. Encourage annual influenza vaccine 13. Encourage pneumonia vaccine Outcome: Progressing Note: Evaluation of progress towards goal: Pt. Infection control progressing. Pt. Being treated forinfection with antibiotics. Pt. Educated on medication, pt. Verbalized understanding and had all questions answered. Problem: Knowledge Deficit Goal: Patient/patient wire rope sales representative demonstrates understanding of disease process, treatment plan,medications, and discharge instructions Description: INTERVENTIONS 1. Complete learning assessment and assess knowledge base 2. Provide teaching at level of understanding 3. Provide teaching via preferred learning method(s) Outcome: Progressing Note: Evaluation of progress towards goal: Pt. Education on disease process, plan of care and medications. Pt. Verbalized understanding and all questions were answered. Problem: Moderate - High Risk Fall Score Description: [place] Fall Score of =/> 25 or indicated by [facility] Assessment Goal: Patient should be free from fall Description: Interventions: 1. [place] to environment 2. Hourly rounds addressing the 4 P's (Pain, Positioning, Possessions, Potty) 3. Clear area of hazards (spills, clutter, electrical cords, unnecessary equipment) 4. Place equipment (bed & TV controls, call light, phone, urinal) within reach 5. Encourage patient to wear glasses and hearing aides as appropriate 6. Maintain bed in lowest position 7. Lock wheels on bed/wheelchair 8. Provide adequate lighting, including night light 9. Assess need for additional bedding, food/fluids, pain med's prior to sleep/routinely 10. Provide gripper slippers or personal non-skid footwear 11. Teach patient and patient wire rope sales representative to maintain environment for safety and engage in all aspects of fall prevention program 12. Remind patient to call for help before getting out of bed 13. Initiate bed/chair/exit alarms supportive devices as appropriate, (chair wedge, no-skid floor mat, raised edge mattress, hip protectors) 14. Locate patient bed assignment for optimal visualization 15. Evaluate and identify Safe Patient Handling Equipment needs 16. Provide supervision when out of bed or chair 17. Utilize gait belt as needed to assist with ambulation 18. Place adaptive equipment (cane, walker) within reach 19. Request patient wire rope sales representative bring adaptive equipment/mobility aids from home or obtain and provide as needed 20. Consult pharmacy regarding effects of med's affecting mobility, cognition, and alternatives 21. Obtain physician order for PT if risk factors associated with mobility are present 22. Obtain physician order for OT as appropriate 23. Utilize diversional activities 24. Educate patient and patient wire rope sales representative how to maintain a safe environment during visitationtimes (notify nurse prior to leaving bedside) 25. Consider appropriateness of medical or non-medical staffing coordinator 26. Set up voiding schedule as appropriate (every 2 hours) Outcome: Progressing Note: Evaluation of progress towards goal: Pt. Remains fall free this hospitalization. Safety precautions maintained. [facility] [employer]10-23-2024 Progress note* PT/OT/PUTTY GLAZER - JENNIFER Carpenter/Kosta - 03/05/2024 4:03 PM EDT Occupational Therapy Treatment Discharge Recommendations OT Recommendations : [facility] 6 Clicks: Daily Activity Putting on and taking off regular lower body clothing?: A lot Bathing (including washing, rinsing, drying)?: A lot Toileting, which includes using toilet, bedpan or urinal?: A little Putting on and taking off regular upper body clothing?: A little Taking care of personal grooming such as brushing teeth?: A little Eating meals?: None Scoring Daily Activity Raw Score: 17 CMS G Code Modifier: CK Therapy Plan OT Treatment/Interventions: Functional transfer training, ADL retraining, UE strengthening/ROM, Endurance training, Patient/family training, Equipment eval/education, Balance, Home management, Bed mobility, Compensatory technique education, Functional activities OT Frequency: 4-5days/week OT Duration: LOS Assessment Patient Assessment Therapy Problem List: Decreased ADL status, Decreased balance, Decreased endurance, Decreased high-level ADLs, Decreased mobility, Decreased self-care trans, Decreased UE strength, Decreased cognition, Decreased safe judgement during ADL Patient Response to Treatment: Progressing toward goals Mood/Affect: Appropriate for circumstances Rehab Prognosis: Good, With continued OT status post acute discharge Visit RN Communication: Yes Medical Record Reviewed: Yes OT Type of Visit: Treatment Precautions Activity: Activity as tolerated per early mobility guidelines Equipment: Gait belt, RW, chair alarm/bed alarm Telemetry/Flow Worker: No Oxygen Used: Room air Other: Fall risk, LBP Pain Assessment Pain Assessment: No/denies pain ADL / IADL Hand Dominance: Right UE Dressing Assistance: Min assist LE Dressing Assistance: Mod assist Footwear Assistance: Min assist Other: Pt donned undergarments at bedside with assistance to pull up over hips in standing position. Pt donned shoes with assistance to place toes. Pt donned front opening garment with assistance to bring around back. Home Management - IADL Other: Pt donned undergarments at bedside with assistance to pull up over hips in standing position. Pt donned shoes with assistance to place toes. Pt donned front opening garment with assistance to bring around back. Hearing / Speech / Vision Hearing: Hard of hearing/hearing concerns Speech: Within Functional Limits Current Vision: Wears glasses all the time Cognition Overall Cognitive Status: Exceptions to Within Functional Limits Orientation Level: Oriented X4 Other: Pt somewhat confused, nonsensical at times. Frequent redirection required. Bed Mobility Supine to Sit: Min assist Sit to Supine: Min assist Other: Assistance for BLE's. Pt returned to supine despite max encouragement to remain in chair post-session. Pt left with call light in reach. Bed alarm on. Transfers Sit to Stand: Min assist Stand to Sit: Min assist Other: VC's for safe hand placement using RW. Pt performed sit<>stand x4 today. No dizziness. Gait Gait Assistance: Min assist Assistive Device: Rolling walker Gait Distance: 25 ft x2 Limiting Factors to Gait: Weakness, Fatigue, Decreased safety Other: VC's for safe navigation using RW. No major LOB. Seated rest break between distances. Balance Balance Evaluation: Exceptions to Functional Limits Sitting Balance: Static: Good Sitting Balance: Dynamic: Fair Standing Balance: Static: Fair Standing Balance: Dynamic: Fair Activity Tolerance Endurance: Tolerates >30 minutes activity with rest breaks Plan Occupational Therapy Care Plan Occupational Therapy Care Plan (Active) Template: OT - Occupational Therapy Problem: Activity Tolerance Dates: Start: 03/04/24 Disciplines: OT Goal: Tolerate 30 minutes of activity WITH rest breaks Dates: Start: 03/04/24 Expected End: 03/25/24 Description: Goal Description: Disciplines: OT Outcomes Date/Time User Outcome 03/05/24 1602 JENNIFER Carpenter/Kosta Progressing Goal Note filed on 03/05/24 160 by JENNIFER Carpenter/Kosta Evaluation of progress towards goal: Problem: Bed Mobility Dates: Start: 03/04/24 Disciplines: OT Goal: Patient will perform bed mobility with Modified [place] Dates: Start: 03/04/24 Expected End: 03/25/24 Description: Goal Description: sup to sit and sit to sup for EOB sitting during functional activity Disciplines: OT Outcomes Date/Time User Outcome 03/05/24 1602 JENNIFER Carpenter/Kosta Progressing Goal Note filed on 03/05/24 160 by JENNIFER Carpenter/Kosta Evaluation of progress towards goal: Problem: Functional Mobility Dates: Start: 03/04/24 Disciplines: OT Goal: Patient will perform functional mobility with Supervision Dates: Start: 03/04/24 Expected End: 03/25/24 Description: Goal Description: use of walker and good safety Disciplines: OT Outcomes Date/Time User Outcome 03/05/24 1602 JENNIFER Carpenter/Kosta Progressing Goal Note filed on 03/05/24 160 by JENNIFER Carpenter/Kosta Evaluation of progress towards goal: Problem: Other (Customize) Dates: Start: 03/04/24 Disciplines: OT Goal: Improve Dates: Start: 03/04/24 Expected End: 03/25/24 Description: Pt will demo all ADLs mod I/IND using AE/DME/compensatory strategies PRN and good safety. Disciplines: OT Outcomes Date/Time User Outcome 03/05/24 1602 JENNIFER Carpenter/Kosta Progressing Goal Note filed on 03/05/24 160 by JENNIFER Carpenter/Kosta Evaluation of progress towards goal: Problem: Sitting Balance Dates: Start: 03/04/24 Disciplines: OT Goal: Improve balance to good Dates: Start: 03/04/24 Expected End: 03/25/24 Description: Pt will demo good unsupported sitting balance 100% of the time during ADL/functional reaching tasks. Disciplines: OT Outcomes Date/Time User Outcome 03/05/24 1602 JENNIFER Carpenter/Kosta Progressing Goal Note filed on 03/05/24 160 by JENNIFER Carpenter/Kosta Evaluation of progress towards goal: Problem: Standing Balance Dates: Start: 03/04/24 Disciplines: OT Goal: Improve balance to good Dates: Start: 03/04/24 Expected End: 03/25/24 Description: Pt will demo good standing balance with use of UE support PRN for 5+ minutes for increased participation in ADLs. Disciplines: OT Outcomes Date/Time User Outcome 03/05/24 1602 JENNIFER Carpenter/Kosta Progressing Goal Note filed on 03/05/24 1602 by JENNIFER Carpenter/Kosta Evaluation of progress towards goal: Problem: Strength Dates: Start: 03/04/24 Disciplines: OT Goal: Improve strength Dates: Start: 03/04/24 Expected End: 03/25/24 Description: Pt will demo good understanding of BUE HEP for increased strength to 5/5 during ADLs. Disciplines: OT Goal Note filed on 03/05/24 160 by JENNIFER Carpenter/Kosta Evaluation of progress towards goal: Problem: Toilet Transfers Dates: Start: 03/04/24 Disciplines: OT Goal: Patient will perform toilet transfers with Supervision Dates: Start: 03/04/24 Expected End: 03/25/24 Description: Goal Description: Disciplines: OT Problem: Transfers Dates: Start: 03/04/24 Disciplines: OT Goal: Patient will perform transfers with Supervision Dates: Start: 03/04/24 Expected End: 03/25/24 Description: Goal Description: Sit to stand, stand to sit transfers with good safety and use of AD PRN Disciplines: OT Outcomes Date/Time User Outcome 03/05/24 1602 JENNIFER Carpenter/Kosta Progressing Goal Note filed on 03/05/24 1602 by JENNIFER Carpenter/Kosta Evaluation of progress towards goal: Occupational Therapy Care Plan (Resolved) There are no resolved problems. Principal Problem: Viral meningitis Active Problems: Seizure ([facility]) [employer]10-23-2024 Progress note* PT/OT/PUTTY GLAZER - Winnie Handy PTA - 03/05/2024 3:57 PM EDT Physical Therapy Treatment Discharge Recommendations PT Recommendations: [facility] 6 Clicks: Basic Mobility Turning from your back to your side while in a flat bed without using bed rails?: A little Moving from lying on your back to sitting on side of flat bed without using bed rails?: A little Moving to and from bed to a chair (including w/c)?: A little Standing up from a chair using your arms (e.g. w/c or bedside chair)?: A little To walk in hospital room?: A lot Climbing 3-5 steps with a railing?: A lot Scoring 6 Clicks: Basic Mobility Raw Score: 16 [facility] G Code Modifier: CK Therapy Plan Patient Response to Treatment: Progressing toward goals Assessment Patient Assessment Therapy Problem List: Decreased balance, Decreased cognition, Decreased endurance, Decreased mobility, Decreased LE ROM, Decreased LE strength Patient Response to Treatment: Progressing toward goals Mood/Affect: Appropriate for circumstances Rehab Prognosis: Good, With continued PT status post acute discharge Visit RN Communication: Yes Medical Record Reviewed: Yes PT Type of Visit: Treatment Precautions Activity: ok for therapy per RN Equipment: RW, gait belt, chair alarm/bd alarm Other: Fall risk, LBP Pain Assessment Pain Assessment: No/denies pain Cognition Following Commands: Follows one step commands with repetition, Follows one step commands with increased time Safety Judgment: Decreased awareness of need for safety, Decreased awareness of need for assistance Awareness of Errors: Assistance required to identify errors made, Assistance required to correct errors made Insight of Deficits: Decreased awareness of deficits Problem Solving: Assistance required to identify errors made, Assistance required to generate solutions Bed Mobility Supine to Sit: Min assist, Left Sit to Supine: Min assist Other: cues for logrolling, use of rail Transfers Sit to Stand: Min assist Stand to Sit: Min assist Other: cues for hand placement Gait Base of Support: Within Functional Limits Pattern: Decreased gera, Forward trunk, R Decreased foot clearance, L Decreased foot clearance Gait Assistance: Min assist Assistive Device: Rolling walker Gait Distance: 25' x 2 Limiting Factors to Gait: Weakness, Fatigue, Decreased safety Other: pt demonstrates forward posture with decreased bilat step length- unsteady/decreased safety with turns-cues for pursed lip breathing-pt tends to hold her breath-pt c/o nausea while resting after firs walk-requested to return to room-RN notified Balance Sitting Balance: Static: Good Sitting Balance: Dynamic: Fair Standing Balance: Static: Fair Standing Balance: Dynamic: Fair (-) Other: unsupported sitting balance @ EOB to don shoes/gowns-pt unsteady in standing-RW with bilat UE support for balance-pt reports she has been getting up without assist-educated pt on importance ofhaving assist when up and use of RW to decrease fall risk Activity Tolerance Endurance: Tolerates >30 minutes activity with rest breaks Other: gave pt written seated HEP, encouraged OOB to chair, use of spirometer and having assist when up 03/05/24 1438 LE Seated LE seated exercises performed? Yes Ankle pumps x Long arc quads x Hip abduction/adduction x Other AROM Repetitions x 15-20 reps Plan Physical Therapy Care Plan Physical Therapy Care Plan (Active) Template: PT - Physical Therapy Problem: Activity Tolerance Dates: Start: 03/04/24 Disciplines: PT Goal: Tolerate > 30 minutes of activity WITH rest breaks Dates: Start: 03/04/24 Expected End: 03/18/24 Description: Goal Description:Patient to perform functional range / strength exercises to improve functional strength, activity tolerance and balance for improved independence and safety with mobility. Disciplines: PT Outcomes Date/Time User Outcome 03/05/241535 Winnie Handy PTA Progressing Goal Note filed on 03/05/241535 by Winnie Handy PTA Evaluation of progress towards goal: Problem: Bed Mobility Dates: Start: 03/04/24 Disciplines: PT Goal: Patient will perform bed mobility with Modified [place] Dates: Start: 03/04/24 Expected End: 03/18/24 Description: Goal Description: Disciplines: PT Outcomes Date/Time User Outcome 03/05/241535 Winnie Handy PTA Progressing Goal Note filed on 03/05/24 153 by Winnie Handy PTA Evaluation of progress towards goal: Problem: Gait Dates: Start: 03/04/24 Disciplines: PT Goal: Patient will perform gait with Modified [place] Dates: Start: 03/04/24 Expected End: 03/18/24 Description: With__RW__,__>50__feet Goal Description: Disciplines: PT Outcomes Date/Time User Outcome 03/05/241535 Winnie Handy PTA Progressing Goal Note filed on 03/05/24 153 by Winnie Handy PTA Evaluation of progress towards goal: Problem: Sitting Balance Dates: Start: 03/04/24 Disciplines: PT Goal: Improve balance to good Dates: Start: 03/04/24 Expected End: 03/18/24 Description: Static Dynamic Disciplines: PT Outcomes Date/Time User Outcome 03/05/241535 Winnie Handy PTA Progressing Goal Note filed on 03/05/241535 by Winnie Handy PTA Evaluation of progress towards goal: Problem: Standing Balance Dates: Start: 03/04/24 Disciplines: PT Goal: Improve balance to good Dates: Start: 03/04/24 Expected End: 03/18/24 Description: With bilat UE support Disciplines: PT Outcomes Date/Time User Outcome 03/05/241535 Winnie Handy PTA Progressing Goal Note filed on 03/05/24 153 by Winnie Handy PTA Evaluation of progress towards goal: Problem: Strength Dates: Start: 03/04/24 Disciplines: PT Goal: Improve strength Dates: Start: 03/04/24 Expected End: 03/18/24 Description: Of extremity/ location: To facilitate: Disciplines: PT Outcomes Date/Time User Outcome 03/05/24 1536 Winnie Handy PTA Progressing Goal Note filed on 03/05/24 1536 by Winnie Handy PTA Evaluation of progress towards goal: Problem: Transfers Dates: Start: 03/04/24 Disciplines: PT Goal: Patient will perform transfers with Modified [place] Dates: Start: 03/04/24 Expected End: 03/18/24 Description: Goal Description:Patient to perform mobility with good safety awareness. Disciplines: PT Outcomes Date/Time User Outcome 03/05/24 1536 Winnie Handy PTA Progressing Goal Note filed on 03/05/24 1536 by Winnie Handy PTA Evaluation of progress towards goal: Physical Therapy Care Plan (Resolved) There are no resolved problems. Principal Problem: Viral meningitis Active Problems: Seizure ([facility]) Cosigned by Gissell Friend PT at 03/06/2024 1:16 PM EDT Associated attestation - Gissell Friend PT - 03/06/2024 1:16 PM EDT I have reviewed and agree with this note and education documentation for this visit. [facility]10-23-2024 Hospital Discharge instructions* Discharge Instructions* Aga Mendoza MD - 03/05/2024 1:06 PM EDT Please continue to take acyclovir 885 mg IV every 12 hours until 03/11/24. Your home health care should help you with this then remove PICC line once treatment is complete. Also recommend to have basic metabolic panel by blood work done in about a week to monitor your kidney function while on acyclovir as this medication can affect your kidney function. Stay well hydrated to avoid any complications. Follow up with your primary care provider in 1-2 weeks. Follow up with infectious diseases. Recommend seeing an educational resource coordinator for evaluation of left eye concerning infection may have been in the eye. * Appointments* Chitra Morel - 03/07/2024 1:15 PM EDT YOUR SCHEDULED APPOINTMENTS Please make note of this in your schedule as to not miss or call to reschedule. Thank you! Mar 12, 2024 at 10:15am Hospital follow up with JEREMIAH REED MD Pt. should bring the following to appointment; Discharge paperwork Picture ID, Insurance card, co-pay, and all current medications in their bottles. Please provide a 24 hour notice for cancellation. Failure to do so will result in the practice declining to see pt. in the future. If you have insurance copay you must bring with you to the appointment. Please arrive about 15 minutes prior to appointment for check-in/registration. For NEW PATIENT APPOINTMENTS, please arrive 30 minutes early to complete new patient paperwork. For NEW patients, MD will not prescribe termite helper pain medication. [facility] Plan of care note * Plan of Care - Gayla Mcwilliams RN - 03/05/2024 10:55 AM EDT Problem: Pain Goal: Patient goal is pain score less than 4, able to rest, and participant in treatment plan as appropriate Description: INTERVENTIONS: 1. Encourage patient or legal wire rope sales representative to report early pain and ask for pain medicine when needed 2. Assess pain using appropriate pain scale and include the scale used when documenting 3. Administer analgesics based on type and severity of pain and evaluate response within appropriate time frame 4. Implement non-pharmacological measures as appropriate and evaluate response 5. Consider cultural and social influences on pain and pain management 6. Notify LIP if interventions ineffective or patient reports new pain 7. Monitor vital signs including pulse ox, end-tidal CO2 based on pain intervention 8. Reassess pain per policy 9. Teach patient or legal wire rope sales representative interventions for comforting Outcome: Progressing Note: Evaluation of progress towards goal: pt has denied pain this shift will continue to monitor and use nonpharmacologic measures to relieve mild discomfort Problem: Safety Goal: Patient will be injury free during hospitalization Description: INTERVENTIONS: 1. Assess patient's risk for falls and implement fall prevention plan of care per policy 2. Provide and maintain a safe environment 3. Proper use of double Identifiers 4. Medication administration using the 5 rights 5. Hand hygiene 6. Specimens are labeled at the bedside 7. Instruct patient/ patient wire rope sales representative about use of safety devices 8. Include patient/ patient wire rope sales representative in decisions related to safety Outcome: Progressing Note: Evaluation of progress towards goal: pt has been injury free this shift. Will continue to monitor and keep items in reach and educate to use the call button when in need of anything Problem: Infection Goal: Absence of infection during hospitalization Description: Interventions: 1. Assess and monitor for signs and symptoms of infection 2. Monitor lab/diagnostic results 3. Monitor all insertion sites i.e., indwelling lines, tubes and drains 4. Monitor endotracheal (as able) and nasal secretions for changes in amount and color 5. Administer medications as ordered 6. Instruct and encourage patient and family to use good hand hygiene technique 7. Identify and instruct patient/patient wire rope sales representative in use of appropriate isolation precautionsfor identified infection/symptoms 8. 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 Encourage and monitor nutritional status daily and consult mock up builder if indicated 10. Implement neutropenic guidelines as needed 11. Review exposure to history of communicable disease and recent travel history on admission 12. Encourage annual influenza vaccine 13. Encourage pneumonia vaccine Outcome: Progressing Note: Evaluation of progress towards goal: hand hygiene is preformed when entering and leaving the room. And no new s/s of infection are present. Will continue to monitor Problem: Knowledge Deficit Goal: Patient/patient wire rope sales representative demonstrates understanding of disease process, treatment plan,medications, and discharge instructions Description: INTERVENTIONS 1. Complete learning assessment and assess knowledge base 2. Provide teaching at level of understanding 3. Provide teaching via preferred learning method(s) Outcome: Progressing Note: Evaluation of progress towards goal: pt verbalized and demonstrates understanding of plan of care and medications being given Problem: Discharge Planning Goal: Discharge to post-acute care, other facility, or home with appropriate resources Description: Patient's goal is: INTERVENTIONS 1. Conduct assessment to determine patient/family and health care team treatment goals, and need for post-acute services based on payer coverage, community resources, and patient preferences, and barriers to discharge 2. Coordinate with Social work, Care Navigation, and Utilization Review to arrange appropriate level of services according to patient's needs based on patient preference and payer coverage in collaboration with the physician and health care team 3. Address psychosocial, clinical, and financial barriers to discharge as identified in assessment in conjunction with the patient/family and health care team 4. Consult appropriate ancillary services (i.e.. PT/OT/ST, etc) as needed 5. Communicate with and update the patient/family, physician, and health care team regarding progress on the discharge plan 6. Identify discharge learning needs (meds, wound care, etc). 7. Arrange for needed discharge transportation as appropriate Outcome: Progressing Note: Evaluation of progress towards goal: pt will be discharged when deemed appropriate. Will continue to answer follow up questions Problem: Moderate - High Risk Fall Score Description: [place] Fall Score of =/> 25 or indicated by [facility] Assessment Goal: Patient should be free from fall Description: Interventions: 1. [place] to environment 2. Hourly rounds addressing the 4 P's (Pain, Positioning, Possessions, Potty) 3. Clear area of hazards (spills, clutter, electrical cords, unnecessary equipment) 4. Place equipment (bed & TV controls, call light, phone, urinal) within reach 5. Encourage patient to wear glasses and hearing aides as appropriate 6. Maintain bed in lowest position 7. Lock wheels on bed/wheelchair 8. Provide adequate lighting, including night light 9. Assess need for additional bedding, food/fluids, pain med's prior to sleep/routinely 10. Provide gripper slippers or personal non-skid footwear 11. Teach patient and patient wire rope sales representative to maintain environment for safety and engage in all aspects of fall prevention program 12. Remind patient to call for help before getting out of bed 13. Initiate bed/chair/exit alarms supportive devices as appropriate, (chair wedge, no-skid floor mat, raised edge mattress, hip protectors) 14. Locate patient bed assignment for optimal visualization 15. Evaluate and identify Safe Patient Handling Equipment needs 16. Provide supervision when out of bed or chair 17. Utilize gait belt as needed to assist with ambulation 18. Place adaptive equipment (cane, walker) within reach 19. Request patient wire rope sales representative bring adaptive equipment/mobility aids from home or obtain and provide as needed 20. Consult pharmacy regarding effects of med's affecting mobility, cognition, and alternatives 21. Obtain physician order for PT if risk factors associated with mobility are present 22. Obtain physician order for OT as appropriate 23. Utilize diversional activities 24. Educate patient and patient wire rope sales representative how to maintain a safe environment during visitationtimes (notify nurse prior to leaving bedside) 25. Consider appropriateness of medical or non-medical staffing coordinator 26. Set up voiding schedule as appropriate (every 2 hours) Outcome: Progressing Note: Evaluation of progress towards goal: Pt has been fall free this shift. Will continue to educate pt on fall risk and assess needs before leaving the room. Items and call light are within reach Problem: Urinary Incontinence Goal: Perineal skin integrity is maintained or improved Description: INTERVENTIONS 1. Assess genitourinary system, perineal skin, labs (urinalysis), and history of incontinence to include past management, aggravating, and alleviating factors 2. Keep skin clean and dry 3. Apply skin protectant 4. Develop skin care regimen 5. Provide privacy when changing patients incontinence device to maintain their dignity 6. Consider placing an indwelling catheter 7. Collaborate with interdisciplinary team and initiate plans and interventions as needed Outcome: Progressing Note: Evaluation of progress towards goal: patient bladder scanned and shows retention, planned to straight cath and monitor urine output Problem: Multi-Drug Resistant Organism / Rule-Out Infection Prevention Goal: Prevent transmission of infection Description: INTERVENTIONS 1. Place patient in private room or in room with patient with same disease 2. Discard single-use items 3. Clean reusable equipment between patients 4. Wear gloves for direct and indirect contact with patient or contaminants 5. Change gloves between tasks and procedures 6. Wash hands before and after caring for each patient 7. Wear appropriate personal protective equipment in relation to the indicated isolation type 8. Place appropriate isolation signage on patient's door 9. Provide patient/ patient wire rope sales representative with isolation education. Outcome: Progressing Note: Evaluation of progress towards goal: patient currently on IV antibiotics for positive LP result [facility] [id number] Plan of care note* Plan of Care - Tashia Redding RN - 03/04/2024 11:33 PM EDT Problem: Pain Goal: Patient goal is pain score less than 4, able to rest, and participant in treatment plan as appropriate Description: INTERVENTIONS: 1. Encourage patient or legal wire rope sales representative to report early pain and ask for pain medicine when needed 2. Assess pain using appropriate pain scale and include the scale used when documenting 3. Administer analgesics based on type and severity of pain and evaluate response within appropriate time frame 4. Implement non-pharmacological measures as appropriate and evaluate response 5. Consider cultural and social influences on pain and pain management 6. Notify LIP if interventions ineffective or patient reports new pain 7. Monitor vital signs including pulse ox, end-tidal CO2 based on pain intervention 8. Reassess pain per policy 9. Teach patient or legal wire rope sales representative interventions for comforting Outcome: Progressing Note: Evaluation of progress towards goal: Pt. Pain well controlled with current management. Problem: Safety Goal: Patient will be injury free during hospitalization Description: INTERVENTIONS: 1. Assess patient's risk for falls and implement fall prevention plan of care per policy 2. Provide and maintain a safe environment 3. Proper use of double Identifiers 4. Medication administration using the 5 rights 5. Hand hygiene 6. Specimens are labeled at the bedside 7. Instruct patient/ patient wire rope sales representative about use of safety devices 8. Include patient/ patient wire rope sales representative in decisions related to safety Outcome: Progressing Note: Evaluation of progress towards goal: Pt. Remains injury free this hospitalization, safety precautions maintained. Problem: Moderate - High Risk Fall Score Description: [place] Fall Score of =/> 25 or indicated by [facility] Assessment Goal: Patient should be free from fall Description: Interventions: 1. [place] to environment 2. Hourly rounds addressing the 4 P's (Pain, Positioning, Possessions, Potty) 3. Clear area of hazards (spills, clutter, electrical cords, unnecessary equipment) 4. Place equipment (bed & TV controls, call light, phone, urinal) within reach 5. Encourage patient to wear glasses and hearing aides as appropriate 6. Maintain bed in lowest position 7. Lock wheels on bed/wheelchair 8. Provide adequate lighting, including night light 9. Assess need for additional bedding, food/fluids, pain med's prior to sleep/routinely 10. Provide gripper slippers or personal non-skid footwear 11. Teach patient and patient wire rope sales representative to maintain environment for safety and engage in all aspects of fall prevention program 12. Remind patient to call for help before getting out of bed 13. Initiate bed/chair/exit alarms supportive devices as appropriate, (chair wedge, no-skid floor mat, raised edge mattress, hip protectors) 14. Locate patient bed assignment for optimal visualization 15. Evaluate and identify Safe Patient Handling Equipment needs 16. Provide supervision when out of bed or chair 17. Utilize gait belt as needed to assist with ambulation 18. Place adaptive equipment (cane, walker) within reach 19. Request patient wire rope sales representative bring adaptive equipment/mobility aids from home or obtain and provide as needed 20. Consult pharmacy regarding effects of med's affecting mobility, cognition, and alternatives 21. Obtain physician order for PT if risk factors associated with mobility are present 22. Obtain physician order for OT as appropriate 23. Utilize diversional activities 24. Educate patient and patient wire rope sales representative how to maintain a safe environment during visitationtimes (notify nurse prior to leaving bedside) 25. Consider appropriateness of medical or non-medical staffing coordinator 26. Set up voiding schedule as appropriate (every 2 hours) Outcome: Progressing Note: Evaluation of progress towards goal: Pt. Remains fall free this hospitalization. Safety precautions maintained. [facility] [employer] [id number] Progress note* Discharge Planning Note - Danyelle Frye - 03/04/2024 4:53 PM EDT DISCHARGE PLANNING NOTE Referral sent to. [facility] in [place], [place] (P# ; F# ) [facility] [employer] [id number] Progress note* Discharge Planning Note - Lisa Guzman RN - 03/04/2024 4:20 PM EDT DISCHARGE PLANNING NOTE Follow-up Discharge Planning Progress Note Per RN during discharge transition rounds, barriers to discharge are: Hypertensive today, CXR, cultures pending. Discharge Plan: Home with home care. Therapy recommending [facility]. Patient declined. Patient agree to home care. [facility] choices. [employer] informed will have referral sent, however need two additional choices. Will follow up tomorrow for additional choices. Care Navigation will continue to follow for any discharge needs. - Lisa Guzman RN 03/04/24 4:26 PM [facility] [id number] Consult note* Stuart Wade MD - 03/04/2024 2:27 PM EDTAssociated Order(s): IP CONSULT TO INFECTIOUS DISEASES Images from the original note were not included. Division of Infectious Diseases - Initial Consult Note [facility] - Academic Team 2 During Business Hours: Please page or use [employer] for communication. After Hours: Please call for our answering service. 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 C2 shingles. This is a patient that presented with C2 left-sided shingles last week that was appropriately treated with valacyclovir. This was around her left eye, and she received TobraDex eyedrops but not necessarily antiviral eyedrops. 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 Her mental status is much closer to baseline currently. EEG has shown no seizure activity and she has no focal neurologic deficits to suggest a vascular event. Agree with intravenous acyclovir, dose of 10 mg IV every 8 hours. Monitor creatinine closely in this setting, with modifications to follow as necessary. Consider evaluation with Ophthalmology to evaluate for herpes zoster ophthalmicus. Duration of antibiotic therapy is uncertain, and a recent perspective cohort study has a fortunately not clarified whether we can transition from intravenous to oral antivirals. Radha Brambila, Chino Lockhart, Rico Hollins, Heather CHATO, Samira calderón P, Andrew S, Taras L, Mabel X, Kiara N, Alona G, Nolvia A. Characteristics, management and outcome of Herpes Simplex and Varicella-Zostervirus encephalitis: a multicentre prospective cohort study. Clinical Microbiology and Infection. 2023Aug 06. [email or web address] As such, we would tentatively plan for intravenous acyclovir for 10-14 day course of therapy. We will clarify her shingles vaccination status as well. Subjective Reason for consultation / Chief complaint: Herpes zoster ophthalmicus, varicella encephalitis, C2 shingles History of Present Illness We appreciate the opportunity to consult on Aaron Lewis, a 79 y.o.-year-old female who was initially admitted on 03/02/2024. The patient is a 79-year-old female admitted to the inpatient neurology service with confusion and photophobia in the setting of a recent shingles exacerbation. The majority of the history was provided by her son due to the patient s moderate confusion. According to the son, the patient developed a shingles rash around her left eye, extending into the left temporoparietal area, on 02/23. She was started on valacyclovir, steroids, and TobraDex eye drops after an emergency department visit on 02/26, where there was concern that the infection had spread to her eye. Initially, her symptoms improved, but by the day before admission, she developed profound confusion, mixing up words, and was unable to recall her son's name. At baseline, the patient is typically oriented to person, place, and time. However, on evaluation, she was oriented only to herself when she came into the hospital. She also reported difficulty with light sensitivity when the shingles first started, though this has improved. The patient s son expressed concern about performing a lumbar puncture (LP) due to her past historyof a spinal leak after spinal surgery and negative experiences with post-LP headaches in both the patient and his . 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 The patient underwent an EEG, which showed encephalopathy with no other significant findings, and an MRI of the brain with and without contrast, which revealed no acute abnormalities. A CT of the head was also unremarkable on arrival. The patient experienced nausea this morning after using the restroom and is anxious about her medical situation but has been reassured after discussions with the care team. Of note, the patient has been requiring 3L of oxygen via nasal cannula for hypoxia, with pulse oximetry readings in the 80s. She denies any fever, cough, or shortness of breath. She also experienced difficulty sleeping overnight due to monitor noise, IV placement, and urinary frequency. Past Medical History: Past Medical History: Diagnosis Date Hypertension Past Surgical History: Past Surgical History: Procedure Laterality Date BACK SURGERY Medications: acyclovir, 10 mg/kg (Adjusted), intravenous, Q12H amLODIPine, 5 mg, oral, Daily aspirin, 81 mg, oral, Daily busPIRone, 10 mg, oral, BID calcium carbonate, 500 mg, oral, Daily with breakfast heparin (porcine), 5,000 Units, subcutaneous, Q8H JEFFREY melatonin, 5 mg, oral, Nightly nortriptyline, 25 mg, oral, Nightly sodium chloride, 3 mL, intravenous, Q12H JEFFREY tobramycin-dexAMETHasone, 1 drop, left eye, BID Social History: Social History Socioeconomic History Marital status: Tobacco Use Smoking status: Former Types: Cigarettes Smokeless tobacco: Never Vaping Use Vaping status: Never Used Substance and Sexual Activity Alcohol use: Never Drug use: Never Sexual activity: Defer Social Drivers of Health Food Insecurity: No Food Insecurity (03/02/2024) Hunger Screening Food Insecurity - Worry: Never True Food Insecurity - Inability: Never True Transportation Needs: No Transportation Needs (03/02/2024) PRAPARE - Transportation Lack of Transportation (Medical): No Lack of Transportation (Non-Medical): No Interpersonal Safety: Not At Risk (03/02/2024) Humiliation, Afraid, Rape, and Kick questionnaire Fear of Current or Ex-Partner: No Emotionally Abused: No Physically Abused: No Sexually Abused: No Housing Instability: Low Risk (03/02/2024) Housing Instability Housing Instability: No Family History: Family History Problem Relation Age of Onset Cancer Mother Stroke Father Immunization History: Immunization History Administered Date(s) Administered COVID-19 Vaccine, vector-nr, rS-Ad26, PF, 0.5mL 07/21/2020 COVID-19, mRNA, LNP-S, PF, 30mcg/0.3mL Dose 03/31/2021 Influenza, High-dose, Quadrivalent 04/11/2020 Influenza, Im Trivalent Preservative 02/02/2011 Allergies: No Known Allergies Review of Systems: Constitutional: Reports confusion, photophobia improving, no fever or chills, difficulty sleeping. Cardiovascular: No chest pain or palpitations. Respiratory: Denies cough or shortness of breath, but requires 3L oxygen due to hypoxia. Gastrointestinal: Reports nausea after using the restroom this morning, no vomiting. Genitourinary: Urinary frequency and urgency. Neurological: Confusion, oriented to self only, reports difficulty with word- finding, denies headaches. Integumentary: Shingles rash around left eye and temporoparietal area, no new skin changes. Objective Physical Examination: BP (!) 135/94 Pulse (!) 144 Temp 36.6 C (97.8 F) (Oral) Resp 14 Ht 165.1 cm (5' 5 ) Wt 88.6 kg (195 lb 5.2 oz) SpO2 99% BMI 32.50 kg/m Temperature Range: Temp: 36.6 C (97.8 F) Temp Av.7 C (98.1 F) Min: 36.6 C (97.8 F) Max: 37 C (98.6 F) General Appearance: Alert, moderately confused, cooperative, in mild distress due to nausea and anxiety. Cardiovascular: Regular rate and rhythm, no murmurs, rubs, or gallops. Respiratory: Clear to auscultation bilaterally, no wheezing or crackles. Abdominal: Soft, non-tender, non-distended. Musculoskeletal: No significant joint or muscle tenderness. Neurological: Moderately confused, oriented to self only, no focal deficits noted. Integumentary: Shingles rash noted around left eye extending into left temporoparietal region, no erythema or signs of infection. Laboratory data: I have independently reviewed the following labs: Results from last 7 days Lab Units 03/04/24 0631 03/03/24 0627 03/02/24 0606 WBC X10E9/L 7.0 8.5 9.3 HEMOGLOBIN g/dL 14.0 14.9 14.3 HEMATOCRIT % 42.0 43.7 42.8 MCV fL 92 91 91 PLATELETS X10E9/L 241 267 224 NEUTROS ABS X10E9/L 4.3 5.1 6.3 LYMPHS ABS AUTO X10E9/L 1.6 2.4 1.9 MONOS ABS AUTO X10E9/L 0.7 0.8 1.0* EOS ABS AUTO X10E9/L 0.2 0.1 0.1 BASOS ABS AUTO X10E9/L 0.2 0.1 0.1 Results from last 7 days Lab Units 03/04/24 0631 03/03/24 0627 03/02/24 0606 03/02/24 0111 SODIUM mmol/L 143 142 141 138 POTASSIUM mmol/L 3.8 4.3 4.0 4.8 CHLORIDE mmol/L 105 107 107 103 CO2 mmol/L 26 20* 23 23 BUN mg/dL 19 22 30* 29* CREATININE mg/dL 1.01* 1.10* 1.36* 1.45* GLUCOSE mg/dL 91 90 84 85 CALCIUM mg/dL 9.8 9.6 9.5 9.7 ALBUMIN g/dL -- -- 3.9 4.0 ALK PHOS U/L -- -- 58 62 ALT U/L -- -- 15 15 AST U/L -- -- 15 17 Results from last 7 days Lab Units 03/02/24 2215 COLOR YELLOW TURBIDITY CLEAR SPECIFIC GRAVITY 1.019 NITRITE Negative PH URINE 6.0 LEUKOCYTE ESTERASE Negative PROTEIN mg/dL Negative KETONES (URINE) mg/dL Trace* UROBILINOGEN eu/dL <1.1 BLDHGB Negative Imaging Studies: I have personally reviewed the CXR, and my interpretation is as follows: Mild central vascular congestion likely aggravated by low lung volume. Cultures: Microbiology Results Procedure Component Value Units Date/Time Spinal Fluid culture includes gram stain, CSF [[id number]] Collected: 03/04/24 0930 Specimen: Cerebrospinal Fluid Updated: 03/04/24 1052 Gram Stain Result WHITE BLOOD CELLS PRESENT NO ORGANISMS SEEN ON CONCENTRATED SMEAR Culture PENDING It is not necessary to call with new culture results. Thank you for allowing us to participate in the care of this patient. Please call with questions. Stuart Wade MD, MPH, FACP, FIDSA From 7AM-7PM: Please page or use [employer] for communication. From 7PM-7AM: Please call for our answering service. [facility] [employer] [id number] Consult note* Stuart Wade MD - 03/04/2024 2:27 PM EDTAssociated Order(s): IP CONSULT TO INFECTIOUS DISEASES Images from the original note were not included. Division of Infectious Diseases - Initial Consult Note [facility] - Academic Team 2 During Business Hours: Please page or use [employer] for communication. After Hours: Please call for our answering service. 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 C2 shingles. This is a patient that presented with C2 left-sided shingles last week that was appropriately treated with valacyclovir. This was around her left eye, and she received TobraDex eyedrops but not necessarily antiviral eyedrops. 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 Her mental status is much closer to baseline currently. EEG has shown no seizure activity and she has no focal neurologic deficits to suggest a vascular event. Agree with intravenous acyclovir, dose of 10 mg IV every 8 hours. Monitor creatinine closely in this setting, with modifications to follow as necessary. Consider evaluation with Ophthalmology to evaluate for herpes zoster ophthalmicus. Duration of antibiotic therapy is uncertain, and a recent perspective cohort study has a fortunately not clarified whether we can transition from intravenous to oral antivirals. Radha L, Chino A, Rico P, Heather CHATO, Samira calderón P, Andrew S, Taras L, Mabel X, Kiara N, Aloan G, Nolvia A. Characteristics, management and outcome of Herpes Simplex and Varicella-Zostervirus encephalitis: a multicentre prospective cohort study. Clinical Microbiology and Infection. 2023Aug 06. [email or web address] As such, we would tentatively plan for intravenous acyclovir for 10-14 day course of therapy. We will clarify her shingles vaccination status as well. Subjective Reason for consultation / Chief complaint: Herpes zoster ophthalmicus, varicella encephalitis, C2 shingles History of Present Illness We appreciate the opportunity to consult on Aaron Lewis, a 79 y.o.-year-old female who was initially admitted on 03/02/2024. The patient is a 79-year-old female admitted to the inpatient neurology service with confusion and photophobia in the setting of a recent shingles exacerbation. The majority of the history was provided by her son due to the patient s moderate confusion. According to the son, the patient developed a shingles rash around her left eye, extending into the left temporoparietal area, on 02/23. She was started on valacyclovir, steroids, and TobraDex eye drops after an emergency department visit on 02/26, where there was concern that the infection had spread to her eye. Initially, her symptoms improved, but by the day before admission, she developed profound confusion, mixing up words, and was unable to recall her son's name. At baseline, the patient is typically oriented to person, place, and time. However, on evaluation, she was oriented only to herself when she came into the hospital. She also reported difficulty with light sensitivity when the shingles first started, though this has improved. The patient s son expressed concern about performing a lumbar puncture (LP) due to her past historyof a spinal leak after spinal surgery and negative experiences with post-LP headaches in both the patient and his . 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 The patient underwent an EEG, which showed encephalopathy with no other significant findings, and an MRI of the brain with and without contrast, which revealed no acute abnormalities. A CT of the head was also unremarkable on arrival. The patient experienced nausea this morning after using the restroom and is anxious about her medical situation but has been reassured after discussions with the care team. Of note, the patient has been requiring 3L of oxygen via nasal cannula for hypoxia, with pulse oximetry readings in the 80s. She denies any fever, cough, or shortness of breath. She also experienced difficulty sleeping overnight due to monitor noise, IV placement, and urinary frequency. Past Medical History: Past Medical History: Diagnosis Date Hypertension Past Surgical History: Past Surgical History: Procedure Laterality Date BACK SURGERY Medications: acyclovir, 10 mg/kg (Adjusted), intravenous, Q12H amLODIPine, 5 mg, oral, Daily aspirin, 81 mg, oral, Daily busPIRone, 10 mg, oral, BID calcium carbonate, 500 mg, oral, Daily with breakfast heparin (porcine), 5,000 Units, subcutaneous, Q8H JEFFREY melatonin, 5 mg, oral, Nightly nortriptyline, 25 mg, oral, Nightly sodium chloride, 3 mL, intravenous, Q12H JEFFREY tobramycin-dexAMETHasone, 1 drop, left eye, BID Social History: Social History Socioeconomic History Marital status: Tobacco Use Smoking status: Former Types: Cigarettes Smokeless tobacco: Never Vaping Use Vaping status: Never Used Substance and Sexual Activity Alcohol use: Never Drug use: Never Sexual activity: Defer Social Drivers of Health Food Insecurity: No Food Insecurity (03/02/2024) Hunger Screening Food Insecurity - Worry: Never True Food Insecurity - Inability: Never True Transportation Needs: No Transportation Needs (03/02/2024) PRAPARE - Transportation Lack of Transportation (Medical): No Lack of Transportation (Non-Medical): No Interpersonal Safety: Not At Risk (03/02/2024) Humiliation, Afraid, Rape, and Kick questionnaire Fear of Current or Ex-Partner: No Emotionally Abused: No Physically Abused: No Sexually Abused: No Housing Instability: Low Risk (03/02/2024) Housing Instability Housing Instability: No Family History: Family History Problem Relation Age of Onset Cancer Mother Stroke Father Immunization History: Immunization History Administered Date(s) Administered COVID-19 Vaccine, vector-nr, rS-Ad26, PF, 0.5mL 07/21/2020 COVID-19, mRNA, LNP-S, PF, 30mcg/0.3mL Dose 03/31/2021 Influenza, High-dose, Quadrivalent 04/11/2020 Influenza, Im Trivalent Preservative 02/02/2011 Allergies: No Known Allergies Review of Systems: Constitutional: Reports confusion, photophobia improving, no fever or chills, difficulty sleeping. Cardiovascular: No chest pain or palpitations. Respiratory: Denies cough or shortness of breath, but requires 3L oxygen due to hypoxia. Gastrointestinal: Reports nausea after using the restroom this morning, no vomiting. Genitourinary: Urinary frequency and urgency. Neurological: Confusion, oriented to self only, reports difficulty with word- finding, denies headaches. Integumentary: Shingles rash around left eye and temporoparietal area, no new skin changes. Objective Physical Examination: BP (!) 135/94 Pulse (!) 144 Temp 36.6 C (97.8 F) (Oral) Resp 14 Ht 165.1 cm (5' 5 ) Wt 88.6 kg (195 lb 5.2 oz) SpO2 99% BMI 32.50 kg/m Temperature Range: Temp: 36.6 C (97.8 F) Temp Av.7 C (98.1 F) Min: 36.6 C (97.8 F) Max: 37 C (98.6 F) General Appearance: Alert, moderately confused, cooperative, in mild distress due to nausea and anxiety. Cardiovascular: Regular rate and rhythm, no murmurs, rubs, or gallops. Respiratory: Clear to auscultation bilaterally, no wheezing or crackles. Abdominal: Soft, non-tender, non-distended. Musculoskeletal: No significant joint or muscle tenderness. Neurological: Moderately confused, oriented to self only, no focal deficits noted. Integumentary: Shingles rash noted around left eye extending into left temporoparietal region, no erythema or signs of infection. Laboratory data: I have independently reviewed the following labs: Results from last 7 days Lab Units 03/04/24 0631 03/03/24 0627 03/02/24 0606 WBC X10E9/L 7.0 8.5 9.3 HEMOGLOBIN g/dL 14.0 14.9 14.3 HEMATOCRIT % 42.0 43.7 42.8 MCV fL 92 91 91 PLATELETS X10E9/L 241 267 224 NEUTROS ABS X10E9/L 4.3 5.1 6.3 LYMPHS ABS AUTO X10E9/L 1.6 2.4 1.9 MONOS ABS AUTO X10E9/L 0.7 0.8 1.0* EOS ABS AUTO X10E9/L 0.2 0.1 0.1 BASOS ABS AUTO X10E9/L 0.2 0.1 0.1 Results from last 7 days Lab Units 03/04/24 0631 03/03/24 0627 03/02/24 0606 03/02/24 0111 SODIUM mmol/L 143 142 141 138 POTASSIUM mmol/L 3.8 4.3 4.0 4.8 CHLORIDE mmol/L 105 107 107 103 CO2 mmol/L 26 20* 23 23 BUN mg/dL 19 22 30* 29* CREATININE mg/dL 1.01* 1.10* 1.36* 1.45* GLUCOSE mg/dL 91 90 84 85 CALCIUM mg/dL 9.8 9.6 9.5 9.7 ALBUMIN g/dL -- -- 3.9 4.0 ALK PHOS U/L -- -- 58 62 ALT U/L -- -- 15 15 AST U/L -- -- 15 17 Results from last 7 days Lab Units 03/02/24 2215 COLOR YELLOW TURBIDITY CLEAR SPECIFIC GRAVITY 1.019 NITRITE Negative PH URINE 6.0 LEUKOCYTE ESTERASE Negative PROTEIN mg/dL Negative KETONES (URINE) mg/dL Trace* UROBILINOGEN eu/dL <1.1 BLDHGB Negative Imaging Studies: I have personally reviewed the CXR, and my interpretation is as follows: Mild central vascular congestion likely aggravated by low lung volume. Cultures: Microbiology Results Procedure Component Value Units Date/Time Spinal Fluid culture includes gram stain, CSF [[id number]] Collected: 03/04/24 0930 Specimen: Cerebrospinal Fluid Updated: 03/04/24 1052 Gram Stain Result WHITE BLOOD CELLS PRESENT NO ORGANISMS SEEN ON CONCENTRATED SMEAR Culture PENDING It is not necessary to call with new culture results. Thank you for allowing us to participate in the care of this patient. Please call with questions. Stuart Wade MD, MPH, FACP, FIDSA From 7AM-7PM: Please page or use [employer] for communication. From 7PM-7AM: Please call for our answering service. documented in this [facility]10-22-2024 Progress note* PT/OT/PUTTY GLAZER - Amber Mcmahon, OTR/L - 03/04/2024 1:18 PM EDT Occupational Therapy Evaluation Discharge Recommendations OT Recommendations : [facility] SNF/ECF Comments: SNF recommended to improve pt strength, safety, balance and activity tolerance during ADL/mobility tasks prior to going home alone. 6 Clicks: Daily Activity Putting on and taking off regular lower body clothing?: A lot Bathing (including washing, rinsing, drying)?: A lot Toileting, which includes using toilet, bedpan or urinal?: A lot Putting on and taking off regular upper body clothing?: A little Taking care of personal grooming such as brushing teeth?: A little Eating meals?: None Scoring Daily Activity Raw Score: 16 CMS G Code Modifier: CK Therapy Plan Need for skilled Occupational Therapy to address deficits in ADL independence and functional mobility due to a status decline resulting from admission 03/02 with c/o AMS / photophobia following shingles rash MRI brain - White matter changes of chronic ischemic small vessel disease with 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 There is no evidence for an acute infarct. CXR -mild central vascular congestion aggravated by low long volume MRI brain (-) acute IR guided LP 03/04 - varicella zoster Past Medical History: Diagnosis Date Hypertension Past Surgical History: Procedure Laterality Date BACK SURGERY OT Treatment/Interventions: ADL retraining, Functional transfer training, UE strengthening/ROM, Endurance training, Patient/family training, Equipment eval/education, Balance, Bed mobility, Compensatory technique education, Functional activities OT Frequency: 4-5days/week OT Duration: LOS Assessment Patient Assessment Therapy Problem List: Decreased ADL status, Decreased balance, Abnormal posture, Decreased endurance, Decreased high-level ADLs, Decreased self-care trans, Decreased safe judgement during ADL, Decreased mobility, Decreased UE strength Patient Response to Treatment: Tolerated evaluation without adverse reaction, Slow progress, decreased activity tolerance Mood/Affect: Appropriate for circumstances Rehab Prognosis: Good, With continued OT status post acute discharge Visit RN Communication: Yes Medical Record Reviewed: Yes OT Type of Visit: Evaluation Precautions Activity: early mobility pass, ok per GIORGIO Moreno for OT evaluation, escalated evaluation for discharge stating that supine duration s/p lumbar puncture was complete and pt ok for OOB activity. Equipment: RW, gait belt Telemetry/Flow Worker: No Oxygen Used: room air Other: Fall risk, LBP, contact precautions for varicella zoster Pain Assessment Pain Assessment: 0-10 Pain Score: 4 Pain Type: Chronic pain Pain Location: Back Pain Intervention(s): Repositioned, Ambulation/increased activity Response to Interventions: Pain unchanged Home Living Type of Home: House Home Layout: One level Stairs to Enter: 2 Hand Rails: None Bathroom Shower/Tub: Walk-in shower Bathroom Toilet: Raised (support nearby) Bathroom Equipment: Hand-held shower, Grab bars in shower, Built-in shower seat Home Equipment: Rolling walker Other : Pt using RW [employer] Prior Function Lives With: Alone Receives Help From: Family, Neighbor (son) Level of Mobility: Independent with ADLs and functional transfers or gait Homemaking Assistance: Needs assistance Yard Work: Total assist (assist from neighbor) ADL / IADL Hand Dominance: Right Eating Assistance: Independent Grooming Assistance: Contact guard assist Bathing/Showering Assistance: Mod assist Toilet/Commode Assistance: Mod assist Toilet/Commode Deficit: Verbal cueing, Grab bar use, Perineal hygiene UE Dressing Assistance: Min assist LE Dressing Assistance: Mod assist Other: Limited in ADL participation due to impaired strength, safety, balance and activity tolerance. Required assist for holding gown out of way, able to complete pericare after urination seated butrequired assist in standing for pericare of buttocks after pt believed she had a bowel movement. VCfor safety throughout. Home Management - IADL Other: Limited in ADL participation due to impaired strength, safety, balance and activity tolerance. Required assist for holding gown out of way, able to complete pericare after urination seated butrequired assist in standing for pericare of buttocks after pt believed she had a bowel movement. VCfor safety throughout. Hearing / Speech / Vision Hearing: Hard of hearing/hearing concerns Speech: Within Functional Limits Current Vision: Wears glasses all the time (bifocals) Cognition Overall Cognitive Status: Exceptions to Within Functional Limits Arousal/Alertness: Appropriate responses to stimuli Attention Span: Attends with cues to redirect Following Commands: Follows one step commands with repetition, Follows one step commands with increased time Safety Judgment: Decreased awareness of need for safety, Decreased awareness of need for assistance Awareness of Errors: Assistance required to identify errors made, Assistance required to correct errors made Insight of Deficits: Decreased awareness of deficits Problem Solving: Assistance required to identify errors made, Assistance required to generate solutions Sensation Overall Sensation Status: Within Functional Limits (pt denies n+t) Bed Mobility Supine to Sit: Stand by assist Sit to Supine: Stand by assist Other: HOB flat to complete, increased time and effort. Transfers Sit to Stand: Min assist Stand to Sit: Min assist Toilet Transfers: Min assist (grab bar use) Other: VC for safe hand placement during transfers, use of RW in standing. Increased time/effort toachieve stand. Pt not following cues well for stand to sit transition, attempting to sit prior to being fully backed up to bed. Gait Pattern: Decreased gera, Forward trunk Gait Assistance: Min assist Assistive Device: Rolling walker Gait Distance: 10 ft x 2 Limiting Factors to Gait: Weakness, Fatigue, Decreased safety Other: Pt completed mobility <> restroom, pt attempting to get OOB to use toilet on arrival. Unsteady, no major LOB. VC for posture and safety. SOB with minimal activity. Balance Balance Evaluation: Exceptions to Functional Limits Sitting Balance: Static: Good (-) Sitting Balance: Dynamic: Fair Standing Balance: Static: Fair (-) Standing Balance: Dynamic: Poor (+) Other: BUE support on RW for standing/mobility tasks. Able to sit with back unsupported EOB and on toilet static, no LOB. Pt unsteady while up on feet. RUE Assessment: (Grossly 4-/5) LUE Assessment: (Grossly 4-/5) Activity Tolerance Endurance: Tolerates <30 minutes activity WITHOUT vital sign changes Other: Limited by SOB and fatigue. Returned supine after restroom. Plan Occupational Therapy Care Plan Occupational Therapy Care Plan (Active) Template: OT - Occupational Therapy Problem: Activity Tolerance Dates: Start: 03/04/24 Disciplines: OT Goal: Tolerate 30 minutes of activity WITH rest breaks Dates: Start: 03/04/24 Expected End: 03/25/24 Description: Goal Description: Disciplines: OT Problem: Bed Mobility Dates: Start: 03/04/24 Disciplines: OT Goal: Patient will perform bed mobility with Modified [place] Dates: Start: 03/04/24 Expected End: 03/25/24 Description: Goal Description: sup to sit and sit to sup for EOB sitting during functional activity Disciplines: OT Problem: Functional Mobility Dates: Start: 03/04/24 Disciplines: OT Goal: Patient will perform functional mobility with Supervision Dates: Start: 03/04/24 Expected End: 03/25/24 Description: Goal Description: use of walker and good safety Disciplines: OT Problem: Other (Customize) Dates: Start: 03/04/24 Disciplines: OT Goal: Improve Dates: Start: 03/04/24 Expected End: 03/25/24 Description: Pt will demo all ADLs mod I/IND using AE/DME/compensatory strategies PRN and good safety. Disciplines: OT Problem: Sitting Balance Dates: Start: 03/04/24 Disciplines: OT Goal: Improve balance to good Dates: Start: 03/04/24 Expected End: 03/25/24 Description: Pt will demo good unsupported sitting balance 100% of the time during ADL/functional reaching tasks. Disciplines: OT Problem: Standing Balance Dates: Start: 03/04/24 Disciplines: OT Goal: Improve balance to good Dates: Start: 03/04/24 Expected End: 03/25/24 Description: Pt will demo good standing balance with use of UE support PRN for 5+ minutes for increased participation in ADLs. Disciplines: OT Problem: Strength Dates: Start: 03/04/24 Disciplines: OT Goal: Improve strength Dates: Start: 03/04/24 Expected End: 03/25/24 Description: Pt will demo good understanding of BUE HEP for increased strength to 5/5 during ADLs. Disciplines: OT Problem: Toilet Transfers Dates: Start: 03/04/24 Disciplines: OT Goal: Patient will perform toilet transfers with Supervision Dates: Start: 03/04/24 Expected End: 03/25/24 Description: Goal Description: Disciplines: OT Problem: Transfers Dates: Start: 03/04/24 Disciplines: OT Goal: Patient will perform transfers with Supervision Dates: Start: 03/04/24 Expected End: 03/25/24 Description: Goal Description: Sit to stand, stand to sit transfers with good safety and use of AD PRN Disciplines: OT Occupational Therapy Care Plan (Resolved) There are no resolved problems. Principal Problem: Viral meningitis Active Problems: Seizure (CMS-HCC) [id number] Progress note* PT/OT/PUTTY GLAZER - Nicholas Lnag, PT - 03/04/2024 1:01 PM EDT Physical Therapy Evaluation Discharge Recommendations PT Recommendations: [facility] SNF/ECF Comments: Pt would benefit from further skilled therapy services to address deficits in functional strength, activity tolerance and decreased functional independence with mobility s/p acute illness and prolonged immobility. 6 Clicks: Basic Mobility Turning from your back to your side while in a flat bed without using bed rails?: A little Moving from lying on your back to sitting on side of flat bed without using bed rails?: A little Moving to and from bed to a chair (including w/c)?: A little Standing up from a chair using your arms (e.g. w/c or bedside chair)?: A little To walk in hospital room?: A lot Climbing 3-5 steps with a railing?: A lot Scoring 6 Clicks: Basic Mobility Raw Score: 16 CMS G Code Modifier: CK Therapy Plan Need for skilled Physical Therapy to address deficits in functional mobility due to a status decline resulting from admission 03/02 with c/o AMS / photophobia following shingles flare Concern for meningitis MRI brain (-) acute LP 03/04 - results pending PT Treatment/Interventions: ADL retraining, Functional transfer training, LE strengthening/ROM, Endurance training, Patient/family training, Equipment eval/education, Balance, Bed mobility, Gait training, Functional activities PT Frequency: 4-5days/week PT Duration: length of stay Patient Response to Treatment: Tolerated evaluation without adverse reaction Past Medical History: Diagnosis Date Hypertension Past Surgical History: Procedure Laterality Date BACK SURGERY Assessment Patient Assessment Therapy Problem List: Decreased ADL status, Decreased balance, Decreased endurance, Decreased grossmotor, Decreased high-level ADLs, Decreased mobility, Decreased safe judgement during ADL, Decreased LE strength Patient Response to Treatment: Tolerated evaluation without adverse reaction Mood/Affect: Appropriate for circumstances Rehab Prognosis: Good, With continued PT status post acute discharge Visit RN Communication: Yes Medical Record Reviewed: Yes PT Type of Visit: Evaluation Precautions Activity: OK for PT evaluation per michelle Mosesated evaluation for discharge stating that supineduration s/p lumbar puncture was clear and patient okay for OOB activity. Equipment: RW, gait belt Telemetry/Flow Worker: No Oxygen Used: room air Other: Fall risk, LBP, droplet for chicken pox Pain Assessment Pain Assessment: 0-10 Pain Score: 4 Pain Type: Chronic pain Pain Location: Back, Shoulder Pain Orientation: Lower, Right Pain Intervention(s): Repositioned, Ambulation/increased activity, Emotional support Response to Interventions: Pain unchanged Home Living Type of Home: House Home Layout: One level Stairs to Enter: 2 Hand Rails: None Bathroom Shower/Tub: Walk-in shower Bathroom Toilet: Raised (support near) Bathroom Equipment: Grab bars in shower, Built-in shower seat, Hand-held shower Home Equipment: Rolling walker Other : Pt reports use of RW at baseline for mobility Prior Function Lives With: Alone Receives Help From: Family, Neighbor (local son, grandson with minimal support) Level of Mobility: Independent with ADLs and functional transfers or gait Homemaking Assistance: Needs assistance Yard Work: Total assist Other: Pt reports increasing difficulty with household IALDs, reports limited support from family available. ADL / IADL Hand Dominance: Right Hearing / Speech / Vision Hearing: Hard of hearing/hearing concerns Speech: Within Functional Limits Current Vision: Wears glasses all the time (bifocals) Cognition Overall Cognitive Status: Within Functional Limits Orientation Level: Oriented X4 Sensation Overall Sensation Status: (pt denies numbness / tingling) Bed Mobility Supine to Sit: Min assist Sit to Supine: Min assist Other: increased time / effort with cues for log roll technique and to avoid valsalva Transfers Sit to Stand: Min assist Stand to Sit: Min assist Other: increased time / effort Gait Base of Support: Within Functional Limits Pattern: Decreased gera, Forward trunk, R Decreased foot clearance, L Decreased foot clearance Gait Assistance: Min assist Assistive Device: Rolling walker Gait Distance: 15ft x 2 Other: Pt requesting to use restroom upon therapist arrival into room. Pt unsteady without gross LOB while ambulating. Balance Sitting Balance: Static: Good Sitting Balance: Dynamic: Fair Standing Balance: Static: Poor Standing Balance: Dynamic: Poor Other: standing balance with bilat UE support RLE Assessment: Exceptions to WFL (generalized weakness) LLE Assessment: Exceptions to WFL (generalized weakness) Activity Tolerance Endurance: Tolerates <30 minutes activity WITHOUT vital sign changes Other: pt fatigues quickly, returned to supine after using restroom Plan Physical Therapy Care Plan Physical Therapy Care Plan (Active) Template: PT - Physical Therapy Problem: Activity Tolerance Dates: Start: 03/04/24 Disciplines: PT Goal: Tolerate > 30 minutes of activity WITH rest breaks Dates: Start: 03/04/24 Expected End: 03/18/24 Description: Goal Description:Patient to perform functional range / strength exercises to improve functional strength, activity tolerance and balance for improved independence and safety with mobility. Disciplines: PT Problem: Bed Mobility Dates: Start: 03/04/24 Disciplines: PT Goal: Patient will perform bed mobility with Modified [place] Dates: Start: 03/04/24 Expected End: 03/18/24 Description: Goal Description: Disciplines: PT Problem: Gait Dates: Start: 03/04/24 Disciplines: PT Goal: Patient will perform gait with Modified [place] Dates: Start: 03/04/24 Expected End: 03/18/24 Description: With__RW__,__>50__feet Goal Description: Disciplines: PT Problem: Sitting Balance Dates: Start: 03/04/24 Disciplines: PT Goal: Improve balance to good Dates: Start: 03/04/24 Expected End: 03/18/24 Description: Static Dynamic Disciplines: PT Problem: Standing Balance Dates: Start: 03/04/24 Disciplines: PT Goal: Improve balance to good Dates: Start: 03/04/24 Expected End: 03/18/24 Description: With bilat UE support Disciplines: PT Problem: Strength Dates: Start: 03/04/24 Disciplines: PT Goal: Improve strength Dates: Start: 03/04/24 Expected End: 03/18/24 Description: Of extremity/ location: To facilitate: Disciplines: PT Problem: Transfers Dates: Start: 03/04/24 Disciplines: PT Goal: Patient will perform transfers with Modified [place] Dates: Start: 03/04/24 Expected End: 03/18/24 Description: Goal Description:Patient to perform mobility with good safety awareness. Disciplines: PT Physical Therapy Care Plan (Resolved) There are no resolved problems. Principal Problem: Viral meningitis Active Problems: Seizure [facility]) [id number] Note Pre-procedure diagnosis: See history below Post-procedure diagnosis: Same as above Assistants/resident: See the technologist's notes above Consent/pre-procedure evaluation: See below. [place] protocol timeout verification performed. Estimated blood loss: Less than 10 mL Procedure/complications: See below Radiation dosage measurements: See below and see technologist's notes above Conscious sedation: If conscious sedation was administered, preprocedure evaluation for conscious sedation was performed and documented. History: Needs CSF. Possible meningitis Procedure: after explanation of the procedure, indications, benefits, risks, and alternatives to fluoroscopically-guided lumbar puncture to the patient, the patient gave consent. The risks of the procedure included bleeding, infection, allergic reaction, nerve damage, pain, and headache requiring epidural blood patch. The back was prepped and draped using sterile barrier technique. 1% xylocainewas given for local anesthesia. 3 digital images, 29 mGy air kerma radiation, and 0.9 minutes of fluoroscopy time were utilized. After placement of a 20-gauge needle into the lumbar subarachnoid space, 15 ml of clear, colorless CSF were collected and sent for the indicated studies. Digital spot radiograph was obtained. .20 cm cm water was the opening pressure and 4 cm of water was the closing pressure.. There was no immediate complication from the procedure Impression: fluoroscopically-guided lumbar puncture without immediate complication. Finalized by José Antonio Rain MD on 03/04/2024 10:21 [id number] Nurse Note* Perioperative Nursing Note - Marlee Gallegos RN - 03/04/2024 9:49 AM EDT Report called to floor RN. [facility] [employer] [id number] Nurse Note* Perioperative Nursing Note - Marlee Gallegos RN - 03/04/2024 9:45 AM EDT Pt received Post-Op, POC discussed. [facility] [employer] [id number] Nurse Note* Scott Kramer - 03/04/2024 9:27 AM EDT Opening pressure 20 15cc of clear colorless fluid removed Closing pressure [address] [facility]10-22-2024 Nurse Note* Scott Kramer - 03/04/2024 9:27 AM EDT Opening pressure 20 15cc of clear colorless fluid removed Closing pressure 4 [facility] note* Scott Kramer - 03/04/2024 9:11 AM EDT Site Preparation: Lower back Site Marked: yes Other: Lower back Prepped with: Chloraprep - with dry time of 3 minutes prior to draping the patient and Hibiclens Site Clipped: no Patient Draped: yes [facility]10-22-2024 Procedure note* Scott Kramer - 03/04/2024 9:11 AM EDT Site Preparation: Lower back Site Marked: yes Other: Lower back Prepped with: Chloraprep - with dry time of 3 minutes prior to draping the patient and Hibiclens Site Clipped: no Patient Draped: yes [facility] Progress note* PT/OT/PUTTY GLAZER - Nicholas Lang, PT - 03/04/2024 9:03 AM EDT Physical Therapy CANCEL - Deferred (Pt undergoing LP in IR at this time) [facility]10-22-2024 Nurse Note* Perioperative Nursing Note - Marlee Gallegos RN - 03/04/2024 8:31 AM EDT Recieved to IVRR, POC discussed. [facility]10-22-2024 Progress note* PT/OT/PUTTY GLAZER - ROXANNE Raymundo - 03/04/2024 8:05 AM EDT Occupational Therapy (P) CANCEL - Deferred (Pt going down for LP by IR) [facility]10-22-2024 Plan of care note* Plan of Care - Tiffanie Smith RN - 03/04/2024 7:47 AM EDT Problem: Pain Goal: Patient goal is pain score less than 4, able to rest, and participant in treatment plan as appropriate Description: INTERVENTIONS: 1. Encourage patient or legal wire rope sales representative to report early pain and ask for pain medicine when needed 2. Assess pain using appropriate pain scale and include the scale used when documenting 3. Administer analgesics based on type and severity of pain and evaluate response within appropriate time frame 4. Implement non-pharmacological measures as appropriate and evaluate response 5. Consider cultural and social influences on pain and pain management 6. Notify LIP if interventions ineffective or patient reports new pain 7. Monitor vital signs including pulse ox, end-tidal CO2 based on pain intervention 8. Reassess pain per policy 9. Teach patient or legal wire rope sales representative interventions for comforting Outcome: Progressing Note: Evaluation of progress towards goal: Mechanical Car Checker assessed pt pain in the beginning and throughout shift. Pt stated a tolerable pain goal was zero. Mechanical Car Checker medicated pt pain per order. Will continue to monitor. Problem: Safety Goal: Patient will be injury free during hospitalization Description: INTERVENTIONS: 1. Assess patient's risk for falls and implement fall prevention plan of care per policy 2. Provide and maintain a safe environment 3. Proper use of double Identifiers 4. Medication administration using the 5 rights 5. Hand hygiene 6. Specimens are labeled at the bedside 7. Instruct patient/ patient wire rope sales representative about use of safety devices 8. Include patient/ patient wire rope sales representative in decisions related to safety Outcome: Progressing Note: Evaluation of progress towards goal: patient remains free from injury at this time. Safety precautions in place. Problem: Infection Goal: Absence of infection during hospitalization Description: Interventions: 1. Assess and monitor for signs and symptoms of infection 2. Monitor lab/diagnostic results 3. Monitor all insertion sites i.e., indwelling lines, tubes and drains 4. Monitor endotracheal (as able) and nasal secretions for changes in amount and color 5. Administer medications as ordered 6. Instruct and encourage patient and family to use good hand hygiene technique 7. Identify and instruct patient/patient wire rope sales representative in use of appropriate isolation precautionsfor identified infection/symptoms 8. 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 Encourage and monitor nutritional status daily and consult mock up builder if indicated 10. Implement neutropenic guidelines as needed 11. Review exposure to history of communicable disease and recent travel history on admission 12. Encourage annual influenza vaccine 13. Encourage pneumonia vaccine Outcome: Progressing Note: Evaluation of progress towards goal: Mechanical Car Checker assessed pt risk for infection in the beginning and throughout shift. Pt remains afebrile. Will continue to monitor. Problem: Knowledge Deficit Goal: Patient/patient wire rope sales representative demonstrates understanding of disease process, treatment plan,medications, and discharge instructions Description: INTERVENTIONS 1. Complete learning assessment and assess knowledge base 2. Provide teaching at level of understanding 3. Provide teaching via preferred learning method(s) Outcome: Progressing Note: Evaluation of progress towards goal: Mechanical Car Checker educated pt on admission disease, medications, treatment, and discharge planning. Will continue to monitor. Problem: Moderate - High Risk Fall Score Description: [place] Fall Score of =/> 25 or indicated by [facility] Assessment Goal: Patient should be free from fall Description: Interventions: 1. [place] to environment 2. Hourly rounds addressing the 4 P's (Pain, Positioning, Possessions, Potty) 3. Clear area of hazards (spills, clutter, electrical cords, unnecessary equipment) 4. Place equipment (bed & TV controls, call light, phone, urinal) within reach 5. Encourage patient to wear glasses and hearing aides as appropriate 6. Maintain bed in lowest position 7. Lock wheels on bed/wheelchair 8. Provide adequate lighting, including night light 9. Assess need for additional bedding, food/fluids, pain med's prior to sleep/routinely 10. Provide gripper slippers or personal non-skid footwear 11. Teach patient and patient wire rope sales representative to maintain environment for safety and engage in all aspects of fall prevention program 12. Remind patient to call for help before getting out of bed 13. Initiate bed/chair/exit alarms supportive devices as appropriate, (chair wedge, no-skid floor mat, raised edge mattress, hip protectors) 14. Locate patient bed assignment for optimal visualization 15. Evaluate and identify Safe Patient Handling Equipment needs 16. Provide supervision when out of bed or chair 17. Utilize gait belt as needed to assist with ambulation 18. Place adaptive equipment (cane, walker) within reach 19. Request patient wire rope sales representative bring adaptive equipment/mobility aids from home or obtain and provide as needed 20. Consult pharmacy regarding effects of med's affecting mobility, cognition, and alternatives 21. Obtain physician order for PT if risk factors associated with mobility are present 22. Obtain physician order for OT as appropriate 23. Utilize diversional activities 24. Educate patient and patient wire rope sales representative how to maintain a safe environment during visitationtimes (notify nurse prior to leaving bedside) 25. Consider appropriateness of medical or non-medical staffing coordinator 26. Set up voiding schedule as appropriate (every 2 hours) Outcome: Progressing Note: Evaluation of progress towards goal: Mechanical Car Checker assessed pt fall precautions in the beginning andthroughout shift. Pt room left free of clutter, pt has all belongings and call light within reach. Will continue to monitor. [facility] [employer] [id number] Progress note* Query Response - Aga Ortiz MD - 03/04/2024 6:59 AM EDT Query Response Note AUTOMATED QUERY TEXT: Type of Encephalopathy: This query seeks further clarification of documentation to reflect all conditions that you are monitoring, evaluating, treating or that extend hospitalization or utilize additional resources. Please utilize your independent clinical judgment when addressing the question(s) below. Please provide further specificity, if known. Clinical indicators include: encephalopathy Options provided: -- Anoxic/hypoxic encephalopathy -- Metabolic encephalopathy -- Toxic encephalopathy -- Hepatic encephalopathy -- Hypertensive encephalopathy -- Other - I will add my own diagnosis -- Dismiss - Not applicable / Not valid AUTOMATED QUERY RESPONSE TEXT: Provider dismissed this query because it was not applicable to the patient or not a valid query. No mention of encephalopathy as diagnosis, was part of EEG report only Electronically signed by: Aga Mendoza MD 03/04/2024 6:57 AM [employer] [id number] Plan of care note* Plan of Care - Jaimee Hobson RN - 03/03/2024 8:24 PM EDT Problem: Safety Goal: Patient will be injury free during hospitalization Description: INTERVENTIONS: 1. Assess patient's risk for falls and implement fall prevention plan of care per policy 2. Provide and maintain a safe environment 3. Proper use of double Identifiers 4. Medication administration using the 5 rights 5. Hand hygiene 6. Specimens are labeled at the bedside 7. Instruct patient/ patient wire rope sales representative about use of safety devices 8. Include patient/ patient wire rope sales representative in decisions related to safety Outcome: Progressing Note: Evaluation of progress towards goal: Patient has remained free of falls throughout this shift. Patient uses call light appropriately, non-slip socks are on, bed locked and in lowest position, two side rails up, and bedside table within reach. Fall risk wristband on. Bed alarm on and working. Problem: Infection Goal: Absence of infection during hospitalization Description: Interventions: 1. Assess and monitor for signs and symptoms of infection 2. Monitor lab/diagnostic results 3. Monitor all insertion sites i.e., indwelling lines, tubes and drains 4. Monitor endotracheal (as able) and nasal secretions for changes in amount and color 5. Administer medications as ordered 6. Instruct and encourage patient and family to use good hand hygiene technique 7. Identify and instruct patient/patient wire rope sales representative in use of appropriate isolation precautionsfor identified infection/symptoms 8. 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 Encourage and monitor nutritional status daily and consult mock up builder if indicated 10. Implement neutropenic guidelines as needed 11. Review exposure to history of communicable disease and recent travel history on admission 12. Encourage annual influenza vaccine 13. Encourage pneumonia vaccine Outcome: Progressing Note: Evaluation of progress towards goal: Patient has remained afebrile. WBC and vital signs monitored. Patient has not shown any additional signs of infection at this time. Problem: Pain Goal: Patient goal is pain score less than 4, able to rest, and participant in treatment plan as appropriate Description: INTERVENTIONS: 1. Encourage patient or legal wire rope sales representative to report early pain and ask for pain medicine when needed 2. Assess pain using appropriate pain scale and include the scale used when documenting 3. Administer analgesics based on type and severity of pain and evaluate response within appropriate time frame 4. Implement non-pharmacological measures as appropriate and evaluate response 5. Consider cultural and social influences on pain and pain management 6. Notify LIP if interventions ineffective or patient reports new pain 7. Monitor vital signs including pulse ox, end-tidal CO2 based on pain intervention 8. Reassess pain per policy 9. Teach patient or legal wire rope sales representative interventions for comforting Note: Evaluation of progress towards goal: Patient encouraged to report pain occurrence. Pain assessed using 0-10 pain scale. Patient reports no pain at this time. PRN pain medication ordered if needed. [facility]10-21-2024 Plan of care note* Plan of Care - Radha Rico RN - 03/03/2024 6:40 PM EDT Problem: Pain Goal: Patient goal is pain score less than 4, able to rest, and participant in treatment plan as appropriate Description: INTERVENTIONS: 1. Encourage patient or legal wire rope sales representative to report early pain and ask for pain medicine when needed 2. Assess pain using appropriate pain scale and include the scale used when documenting 3. Administer analgesics based on type and severity of pain and evaluate response within appropriate time frame 4. Implement non-pharmacological measures as appropriate and evaluate response 5. Consider cultural and social influences on pain and pain management 6. Notify LIP if interventions ineffective or patient reports new pain 7. Monitor vital signs including pulse ox, end-tidal CO2 based on pain intervention 8. Reassess pain per policy 9. Teach patient or legal wire rope sales representative interventions for comforting Outcome: Progressing Note: Evaluation of progress towards goal: Encourage patient or legal wire rope sales representative to report early pain and ask for pain medicine when needed. Problem: Safety Goal: Patient will be injury free during hospitalization Description: INTERVENTIONS: 1. Assess patient's risk for falls and implement fall prevention plan of care per policy 2. Provide and maintain a safe environment 3. Proper use of double Identifiers 4. Medication administration using the 5 rights 5. Hand hygiene 6. Specimens are labeled at the bedside 7. Instruct patient/ patient wire rope sales representative about use of safety devices 8. Include patient/ patient wire rope sales representative in decisions related to safety Outcome: Progressing Note: Evaluation of progress towards goal: Pt's bed is low and locked. Environment is clutter free. 2/4 side rails up. Call light and personal items within reach. Non-skid socks worn during ambulation. Problem: Infection Goal: Absence of infection during hospitalization Description: Interventions: 1. Assess and monitor for signs and symptoms of infection 2. Monitor lab/diagnostic results 3. Monitor all insertion sites i.e., indwelling lines, tubes and drains 4. Monitor endotracheal (as able) and nasal secretions for changes in amount and color 5. Administer medications as ordered 6. Instruct and encourage patient and family to use good hand hygiene technique 7. Identify and instruct patient/patient wire rope sales representative in use of appropriate isolation precautionsfor identified infection/symptoms 8. 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 Encourage and monitor nutritional status daily and consult mock up builder if indicated 10. Implement neutropenic guidelines as needed 11. Review exposure to history of communicable disease and recent travel history on admission 12. Encourage annual influenza vaccine 13. Encourage pneumonia vaccine Outcome: Progressing Note: Evaluation of progress towards goal: Nurse will assess and monitor for signs and symptoms of infection with lab/diagnostic results, monitor all insertion sites. Administer medications as ordered. Instruct and encourage patient and family to use good hand hygiene technique. Encourage and monitor nutritional status daily and consult mock up builder if indicated. Encourage annual influenza vaccine and pneumonia vaccine. [facility]10-21-2024 Progress note* Discharge Planning Note - Zita Bergman RN - 03/03/2024 12:41 PM EDT Images from the original note were not included. DISCHARGE PLANNING NOTE Chart reviewed discussed in discharge rounds. Attempted to meet with patient and she was not available. Therapy evals are pending. 13:55 Met with patient at bedside, explained role, verbalized understanding. Patient lives alone and useseither a cane or walker to ambulate. She is able to perform ADLs. 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 Her son will transport home at discharge. Her PCP is Dr. Jeremiah Reed,will add to [employer]. She denies any financial restraints to meeting her needs and is getting medications without difficulties. Her confusion has resolved at this time. PT/OT evals are pending and she isscheduled for a LP in IR tomorrow. Discussed that if she felt home care would be a benefit to her to let us know. Discharge plan at this time is to return to home. Care Navigation to continue to follow. Services Requested: Services Requested Discharge Disposition: Home with self care Initial DC Assessment Completed: Yes Patient Goals: Patient/Caregiver Goals Patient/Caregiver Goals: Home No Needs Goals: Goals Return to home (pt-stated) Evaluation of progress towards goal: [facility]10-20-2024 Plan of care note* Plan of Care - Ankit De Dios RN - 03/02/2024 10:40 PM EDT Problem: Pain Goal: Patient goal is pain score less than 4, able to rest, and participant in treatment plan as appropriate Description: INTERVENTIONS: 1. Encourage patient or legal wire rope sales representative to report early pain and ask for pain medicine when needed 2. Assess pain using appropriate pain scale and include the scale used when documenting 3. Administer analgesics based on type and severity of pain and evaluate response within appropriate time frame 4. Implement non-pharmacological measures as appropriate and evaluate response 5. Consider cultural and social influences on pain and pain management 6. Notify LIP if interventions ineffective or patient reports new pain 7. Monitor vital signs including pulse ox, end-tidal CO2 based on pain intervention 8. Reassess pain per policy 9. Teach patient or legal wire rope sales representative interventions for comforting Outcome: Progressing Note: Evaluation of progress towards goal: patient encouraged to report pain occurrence, pain assessed using 0-10 pain scale, vital signs monitored, medicated as ordered, pain reassessed Problem: Safety Goal: Patient will be injury free during hospitalization Description: INTERVENTIONS: 1. Assess patient's risk for falls and implement fall prevention plan of care per policy 2. Provide and maintain a safe environment 3. Proper use of double Identifiers 4. Medication administration using the 5 rights 5. Hand hygiene 6. Specimens are labeled at the bedside 7. Instruct patient/ patient wire rope sales representative about use of safety devices 8. Include patient/ patient wire rope sales representative in decisions related to safety Outcome: Progressing Note: Evaluation of progress towards goal: Fall risk assessed, bed maintained in low position, calllight within reach, nil falls this shift. Will continue to monitor Problem: Infection Goal: Absence of infection during hospitalization Description: Interventions: 1. Assess and monitor for signs and symptoms of infection 2. Monitor lab/diagnostic results 3. Monitor all insertion sites i.e., indwelling lines, tubes and drains 4. Monitor endotracheal (as able) and nasal secretions for changes in amount and color 5. Administer medications as ordered 6. Instruct and encourage patient and family to use good hand hygiene technique 7. Identify and instruct patient/patient wire rope sales representative in use of appropriate isolation precautionsfor identified infection/symptoms 8. 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 Encourage and monitor nutritional status daily and consult mock up builder if indicated 10. Implement neutropenic guidelines as needed 11. Review exposure to history of communicable disease and recent travel history on admission 12. Encourage annual influenza vaccine 13. Encourage pneumonia vaccine Outcome: Progressing Note: Evaluation of progress towards goal: Patient assessed for signs of infection, vital signs monitored, insertion sites assessed, nil signs of infection noted throughout shift. Will continue to monitor Problem: Knowledge Deficit Goal: Patient/patient wire rope sales representative demonstrates understanding of disease process, treatment plan,medications, and discharge instructions Description: INTERVENTIONS 1. Complete learning assessment and assess knowledge base 2. Provide teaching at level of understanding 3. Provide teaching via preferred learning method(s) Outcome: Progressing Note: Evaluation of progress towards goal: patient and daughter updated re plan of care Problem: Discharge Planning Goal: Discharge to post-acute care, other facility, or home with appropriate resources Description: Patient's goal is: INTERVENTIONS 1. Conduct assessment to determine patient/family and health care team treatment goals, and need for post-acute services based on payer coverage, community resources, and patient preferences, and barriers to discharge 2. Coordinate with Social work, Care Navigation, and Utilization Review to arrange appropriate level of services according to patient's needs based on patient preference and payer coverage in collaboration with the physician and health care team 3. Address psychosocial, clinical, and financial barriers to discharge as identified in assessment in conjunction with the patient/family and health care team 4. Consult appropriate ancillary services (i.e.. PT/OT/ST, etc) as needed 5. Communicate with and update the patient/family, physician, and health care team regarding progress on the discharge plan 6. Identify discharge learning needs (meds, wound care, etc). 7. Arrange for needed discharge transportation as appropriate Outcome: Progressing Note: Evaluation of progress towards goal: discharge disposition to be decided Problem: Moderate - High Risk Fall Score Description: [place] Fall Score of =/> 25 or indicated by [facility] Assessment Goal: Patient should be free from fall Description: Interventions: 1. [place] to environment 2. Hourly rounds addressing the 4 P's (Pain, Positioning, Possessions, Potty) 3. Clear area of hazards (spills, clutter, electrical cords, unnecessary equipment) 4. Place equipment (bed & TV controls, call light, phone, urinal) within reach 5. Encourage patient to wear glasses and hearing aides as appropriate 6. Maintain bed in lowest position 7. Lock wheels on bed/wheelchair 8. Provide adequate lighting, including night light 9. Assess need for additional bedding, food/fluids, pain med's prior to sleep/routinely 10. Provide gripper slippers or personal non-skid footwear 11. Teach patient and patient wire rope sales representative to maintain environment for safety and engage in all aspects of fall prevention program 12. Remind patient to call for help before getting out of bed 13. Initiate bed/chair/exit alarms supportive devices as appropriate, (chair wedge, no-skid floor mat, raised edge mattress, hip protectors) 14. Locate patient bed assignment for optimal visualization 15. Evaluate and identify Safe Patient Handling Equipment needs 16. Provide supervision when out of bed or chair 17. Utilize gait belt as needed to assist with ambulation 18. Place adaptive equipment (cane, walker) within reach 19. Request patient wire rope sales representative bring adaptive equipment/mobility aids from home or obtain and provide as needed 20. Consult pharmacy regarding effects of med's affecting mobility, cognition, and alternatives 21. Obtain physician order for PT if risk factors associated with mobility are present 22. Obtain physician order for OT as appropriate 23. Utilize diversional activities 24. Educate patient and patient wire rope sales representative how to maintain a safe environment during visitationtimes (notify nurse prior to leaving bedside) 25. Consider appropriateness of medical or non-medical staffing coordinator 26. Set up voiding schedule as appropriate (every 2 hours) Outcome: Progressing Note: Evaluation of progress towards goal: Fall risk assessed, bed maintained in low position, calllight within reach, bed and chair alarm on and working, nil falls this shift. Will continue to monitor [facility] [employer] [id number] Plan of care note* Plan of Care - Dayna Damasoanneliese - 03/02/2024 2:30 PM EDT Problem: Pain Goal: Patient goal is pain score less than 4, able to rest, and participant in treatment plan as appropriate Description: INTERVENTIONS: 1. Encourage patient or legal wire rope sales representative to report early pain and ask for pain medicine when needed 2. Assess pain using appropriate pain scale and include the scale used when documenting 3. Administer analgesics based on type and severity of pain and evaluate response within appropriate time frame 4. Implement non-pharmacological measures as appropriate and evaluate response 5. Consider cultural and social influences on pain and pain management 6. Notify LIP if interventions ineffective or patient reports new pain 7. Monitor vital signs including pulse ox, end-tidal CO2 based on pain intervention 8. Reassess pain per policy 9. Teach patient or legal wire rope sales representative interventions for comforting Outcome: Progressing Note: Evaluation of progress towards goal: Mechanical Car Checker assessed pt pain in the beginning and throughout shift. Pt stated a tolerable pain goal was zero. Mechanical Car Checker medicated pt pain per order. Will continue to monitor. Problem: Safety Goal: Patient will be injury free during hospitalization Description: INTERVENTIONS: 1. Assess patient's risk for falls and implement fall prevention plan of care per policy 2. Provide and maintain a safe environment 3. Proper use of double Identifiers 4. Medication administration using the 5 rights 5. Hand hygiene 6. Specimens are labeled at the bedside 7. Instruct patient/ patient wire rope sales representative about use of safety devices 8. Include patient/ patient wire rope sales representative in decisions related to safety Outcome: Progressing Note: Evaluation of progress towards goal: Patient has remained free from injury during their hospital stay. Skin integrity remains intact. Fall precautions are in place. Will continue to monitor. Problem: Infection Goal: Absence of infection during hospitalization Description: Interventions: 1. Assess and monitor for signs and symptoms of infection 2. Monitor lab/diagnostic results 3. Monitor all insertion sites i.e., indwelling lines, tubes and drains 4. Monitor endotracheal (as able) and nasal secretions for changes in amount and color 5. Administer medications as ordered 6. Instruct and encourage patient and family to use good hand hygiene technique 7. Identify and instruct patient/patient wire rope sales representative in use of appropriate isolation precautionsfor identified infection/symptoms 8. 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 Encourage and monitor nutritional status daily and consult mock up builder if indicated 10. Implement neutropenic guidelines as needed 11. Review exposure to history of communicable disease and recent travel history on admission 12. Encourage annual influenza vaccine 13. Encourage pneumonia vaccine Outcome: Progressing Note: Evaluation of progress towards goal: Patient has remained free from infection during hospitalstay. Patient is afebrile and last WBC was _. Will continue using standard precautions and monitoring for signs and symptoms of infection. Problem: Knowledge Deficit Goal: Patient/patient wire rope sales representative demonstrates understanding of disease process, treatment plan,medications, and discharge instructions Description: INTERVENTIONS 1. Complete learning assessment and assess knowledge base 2. Provide teaching at level of understanding 3. Provide teaching via preferred learning method(s) Outcome: Progressing Note: Evaluation of progress towards goal: Patient and/or family has demonstrated appropriate knowledge regarding care plan, disease process, medications, and discharge planning. Will continue to engage and encourage questions. Problem: Moderate - High Risk Fall Score Description: [place] Fall Score of =/> 25 or indicated by [facility] Assessment Goal: Patient should be free from fall Description: Interventions: 1. [place] to environment 2. Hourly rounds addressing the 4 P's (Pain, Positioning, Possessions, Potty) 3. Clear area of hazards (spills, clutter, electrical cords, unnecessary equipment) 4. Place equipment (bed & TV controls, call light, phone, urinal) within reach 5. Encourage patient to wear glasses and hearing aides as appropriate 6. Maintain bed in lowest position 7. Lock wheels on bed/wheelchair 8. Provide adequate lighting, including night light 9. Assess need for additional bedding, food/fluids, pain med's prior to sleep/routinely 10. Provide gripper slippers or personal non-skid footwear 11. Teach patient and patient wire rope sales representative to maintain environment for safety and engage in all aspects of fall prevention program 12. Remind patient to call for help before getting out of bed 13. Initiate bed/chair/exit alarms supportive devices as appropriate, (chair wedge, no-skid floor mat, raised edge mattress, hip protectors) 14. Locate patient bed assignment for optimal visualization 15. Evaluate and identify Safe Patient Handling Equipment needs 16. Provide supervision when out of bed or chair 17. Utilize gait belt as needed to assist with ambulation 18. Place adaptive equipment (cane, walker) within reach 19. Request patient wire rope sales representative bring adaptive equipment/mobility aids from home or obtain and provide as needed 20. Consult pharmacy regarding effects of med's affecting mobility, cognition, and alternatives 21. Obtain physician order for PT if risk factors associated with mobility are present 22. Obtain physician order for OT as appropriate 23. Utilize diversional activities 24. Educate patient and patient wire rope sales representative how to maintain a safe environment during visitationtimes (notify nurse prior to leaving bedside) 25. Consider appropriateness of medical or non-medical staffing coordinator 26. Set up voiding schedule as appropriate (every 2 hours) Outcome: Progressing Note: Evaluation of progress towards goal: Patient has remained free from falls during their hospital stay. Fall precautions are in place. Call light is within reach. Table and belonging are within reach at the bedside. Adequate lighting has been provided. Hourly rounding has been performed. Will continue to monitor. Cosigned by Tiffanie Smith RN at 03/02/2024 5:59 PM EDT Associated attestation - Tiffanie Smith RN - 03/02/2024 5:59 PM EDT - Tiffanie Smith RN 03/02/24 5:59 PM [id number] Plan of care note* Plan of Care - Jaimee Hobson RN - 03/02/2024 4:15 AM EDT Problem: Pain Goal: Patient goal is pain score less than 4, able to rest, and participant in treatment plan as appropriate Description: INTERVENTIONS: 1. Encourage patient or legal wire rope sales representative to report early pain and ask for pain medicine when needed 2. Assess pain using appropriate pain scale and include the scale used when documenting 3. Administer analgesics based on type and severity of pain and evaluate response within appropriate time frame 4. Implement non-pharmacological measures as appropriate and evaluate response 5. Consider cultural and social influences on pain and pain management 6. Notify LIP if interventions ineffective or patient reports new pain 7. Monitor vital signs including pulse ox, end-tidal CO2 based on pain intervention 8. Reassess pain per policy 9. Teach patient or legal wire rope sales representative interventions for comforting Outcome: Progressing Note: Evaluation of progress towards goal: Patient encouraged to report pain occurrence. Pain assessed using 0-10 pain scale. Patient reports no pain at this time. PRN pain medication ordered if needed. Problem: Safety Goal: Patient will be injury free during hospitalization Description: INTERVENTIONS: 1. Assess patient's risk for falls and implement fall prevention plan of care per policy 2. Provide and maintain a safe environment 3. Proper use of double Identifiers 4. Medication administration using the 5 rights 5. Hand hygiene 6. Specimens are labeled at the bedside 7. Instruct patient/ patient wire rope sales representative about use of safety devices 8. Include patient/ patient wire rope sales representative in decisions related to safety Outcome: Progressing Note: Evaluation of progress towards goal: Patient has remained free of falls throughout this shift. Patient uses call light appropriately, non-slip socks are on, bed locked and in lowest position, two side rails up, and bedside table within reach. Fall risk wristband on. Bed alarm on and working. Problem: Infection Goal: Absence of infection during hospitalization Description: Interventions: 1. Assess and monitor for signs and symptoms of infection 2. Monitor lab/diagnostic results 3. Monitor all insertion sites i.e., indwelling lines, tubes and drains 4. Monitor endotracheal (as able) and nasal secretions for changes in amount and color 5. Administer medications as ordered 6. Instruct and encourage patient and family to use good hand hygiene technique 7. Identify and instruct patient/patient wire rope sales representative in use of appropriate isolation precautionsfor identified infection/symptoms 8. 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 Encourage and monitor nutritional status daily and consult mock up builder if indicated 10. Implement neutropenic guidelines as needed 11. Review exposure to history of communicable disease and recent travel history on admission 12. Encourage annual influenza vaccine 13. Encourage pneumonia vaccine Note: Evaluation of progress towards goal: Patient has remained afebrile. WBC and vital signs monitored. Patient has not shown any additional signs of infection at this time. [facility] [id number] History and physical note* Aga Ortiz MD - 03/02/2024 1:55 AM EDT Images from the original note were not included. [facility] Neurology General Neurology Primary Admission Note Primary Neurology service: [phone] Chief Complaint: Photophobia and confusion with shingles flare. 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 year old female who was admitted to inpatient Neurology for chief complaint of photophobia and confusion in the setting of recent shingles exacerbation. The patient is moderately confused. The majority of history was collected from her son at bedside. He states that she had developed a shingles rash around her left eye extending into the left temporoparietal area. She was initially started on steroids, valacyclovir, and TobraDex eyedrops. Her symptoms seemed to be improving, however, starting the day before presentation she developed profound confusion. At baseline, she was typically oriented to herself, her surroundings, the time, and her circumstances. Upon my evaluation, she seems only oriented to herself in the place. She states that she did have some difficulty looking at lights when her shingles for started, however, this symptom is improving. Of note, the patient's son notes multiple bad experiences with lumbar punctures and post LP headaches in his spouse and in the patient. He was highly against performing a blind LP, but is open for anIR guided LP. He wishes to discuss this more before the final decision is made. She has a past medical history significant for hypertension, COPD, and peripheral neuropathy. Past Medical History/Surgical History: Active Ambulatory Problems Diagnosis Date Noted No Active Ambulatory Problems Resolved Ambulatory Problems Diagnosis Date Noted No Resolved Ambulatory Problems No Additional Past Medical History Family History: No family history on file. Social History: Social History Socioeconomic History Marital status: Not on file Spouse name: Not on file Number of children: Not on file Years of education: Not on file Highest education level: Not on file Occupational History Not on file Tobacco Use Smoking status: Not on file Smokeless tobacco: Not on file Substance and Sexual Activity Alcohol use: Not on file Drug use: Not on file Sexual activity: Not on file Other Topics Concern Not on file Social History Narrative Not on file Social Drivers of Health Financial Resource Strain: Not on file Food Insecurity: Not on file Transportation Needs: Not on file Physical Activity: Not on file Stress: Not on file Social Connections: Not on file Interpersonal Safety: Not on file Housing Instability: Not on file Medications: 22.5 MME/Day Allergies: Not on File Complete Review of Systems: A complete review of systems was performed and was otherwise negative unless outlined in the HPI. Physical Exam Neurological Examination: Higher Mental Function: Oriented to person and place but not time or circumstance Attention span and concentration severely impaired as she can not even begin to spell the word world backwards. Recent memory severely impaired was 0/3 on delayed recall. Remote memory intact to she was able to remember where she went to high school. Language intact Fund of knowledge appropriate Ophthalmological Examination: Injected conjunctiva of the left eye along with some mild swelling ofthe left eyelid. Cranial Nerve Examination: II: Normal tracking, no evidence of hemianopia or other visual field defect. III, IV, & : EOM intact, no ptosis, no nystagmus seen. Pupils are equal and reactive to light. V: Facial sensation is intact. VII: no facial asymmetry, facial movement intact. VIII: hearing is normal. IX-X: Palate elevates in the midline. XI: Normal trapezius strength and/or movement. XII: Tongue movement is normal, position is midline and no fasciculations are observed. Tongue strength intact. Motor: Power -- No focal motor weakness noted in BL upper or lower extremities. Bulk and muscle tone are intact in BL upper and lower extremities. No rigidity or spasticity. No atrophy or abnormal movements noted. No dystonia, or motor tics. No bradykinesia, postural or kinetic tremor noted. No fasciculation or myotonia noted. No abnormal movements noticed. No evidence of pseudo bulbar paralysis; no sialorrhea, difficulties swallowing. There were no tremors seen Deep Tendon Reflexes: Right, Left: Biceps 1, 1 Brachioradialis 1, 1 Patellae 0, 0 Achilles 0, 0 Plantar response was mute bilaterally. No clonus or other pathological reflexes elicited. Sensory examination: Intact to light touch throughout. Cerebellar: Able to do [id number] bilaterally Gait and station: Deferred Pertinent Labs: White count, hemoglobin, and platelets were within normal limits at outside hospital. Urinalysis negative at outside hospital. Imaging: N/A Other Testing: N/A Assessment: Aaron Lewis is a 79 y.o. female admitted to the neurology service for concerns of meningitis/encephalitis. Given her lack of headache and improvement of her photophobia, suspicion for meningitis is lower. However, given her altered mental status and recent shingles outbreak. There is higher concern for herpes encephalitis. Impression: Altered mental status in the context of recent shingles exacerbation: Concern for herpes encephalitis/meningitis Plan: Start acyclovir 10 milligrams/kilogram q.8 hours. Start normal saline infusion, as acyclovir without adequate fluid can crystallized in the kidneys and lead to an SOLO. Plan for MRI of the brain with and without contrast. Start EEG monitoring. Resume home medications as indicated. Will need to further discuss lumbar puncture with the patient's son as he seemed open to an IR guided LP, but later seemed apprehensive. Basic labs including CBC and CMP daily. PT and INR. DVT Prophylaxis: SubQ heparin GI Prophylaxis: Not Indicated Code Status: Discussed with the patient's son. Electing for a Full code Porfirio Choi MD PGY-2 Neurology Resident [facility] 03/02/24 Staffed with: Dr. Monteiro This patient is being followed by the Neurology Resident service. Contact attending directly during these hours: Sunday to 7:30-8:30 A.M. to Sunday 12-1:00 p.m. Primary Neurology service: [phone] Consult neurology service: [phone] Resident Stroke Service: [phone] If the patient belongs to the Stroke [facility] service please contact the Stroke [facility] directly. ADDENDUM More history was obtained from patient. She reported her symptoms started Sunday and she was evaluated in the ED on Sunday. Her son said he started noticing some trouble with her words through text starting but did not note changes in mentation until Sunday. He is concerned for bedside LP due to the patient's history of CSF leak after spinal surgery years ago at outside hospital. He believes she had hardware placed, but unsure and patient is unsure as well. The son's has also had significant troubles with CSF leaks ongoing. He would prefer she have LP by IR if she needs one. Physical exam: Agree with above EEG: moderate slowing, no lateralizing signs Assessment/Plan: Concern for VZV meningitis due to confusion and recent diagnosis of left V1 shingles who was started on steroids, valacyclovir and eye drops. Plan: Discontinue EEG MRI brain with and without contrast to evaluate for any infectious lesions or signs of meningitis Plan for LP by IR per preference/consent. Will evaluate for meningitis and make sure we are treating the correct diagnosis. LP consent signed and in patient's chart. Otherwise plan is the same as above. Aga Mendoza MD PGY-3 Neurology Resident [facility] Staffed with Dr. Monteiro Cosigned by Renay Monteiro MD at 03/02/2024 10:07 PM EDT Associated attestation - Renay Monteiro MD - 03/02/2024 10:07 PM EDT Attending Attestation: I saw the patient. I performed the critical/damon portions of the service. I was directly involved inthe management and treatment plan of the patient. I reviewed the resident's note. Additional Notes/Findings: History: 79 y.o. right-handed female with altered mental status (confusion, disorientation, alteredsleep pattern, and impaired memory) for 2 days; shingle infection left fronto-temporal region in the past 6 days s/p treatment with Valtrex and steroid; was transferred from outside ED for possible viral meningitis; history of back surgery and post-surgical CSK leaking; no fever or headache Examination: awake alert and grossly oriented to person and place; no meningismus; no focal motor or sensory deficit; herpetic blisters, scars/crusts left V1 territory Investigations: vEEG: generalized slow; no asymmetry, epileptiform or ictal change Assessment: Altered cognition associated with acute left V1 herpetic infection; rule out [employer] HE[employer] ADVISOR viral infection (VZV) Plans/Recommendations: continue IV acyclovir; IR-guided LP after brain MRI with contrast; neurological observation; extensive discussion with patient and her son; questions answered and consent obtained Renay Monteiro MD, PhD [facility] [id number] History and physical note* Aga Ortiz MD - 03/02/2024 1:55 AM EDT Images from the original note were not included. [facility] Neurology General Neurology Primary Admission Note Primary Neurology service: [phone] Chief Complaint: Photophobia and confusion with shingles flare. 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 year old female who was admitted to inpatient Neurology for chief complaint of photophobia and confusion in the setting of recent shingles exacerbation. The patient is moderately confused. The majority of history was collected from her son at bedside. He states that she had developed a shingles rash around her left eye extending into the left temporoparietal area. She was initially started on steroids, valacyclovir, and TobraDex eyedrops. Her symptoms seemed to be improving, however, starting the day before presentation she developed profound confusion. At baseline, she was typically oriented to herself, her surroundings, the time, and her circumstances. Upon my evaluation, she seems only oriented to herself in the place. She states that she did have some difficulty looking at lights when her shingles for started, however, this symptom is improving. Of note, the patient's son notes multiple bad experiences with lumbar punctures and post LP headaches in his spouse and in the patient. He was highly against performing a blind LP, but is open for anIR guided LP. He wishes to discuss this more before the final decision is made. She has a past medical history significant for hypertension, COPD, and peripheral neuropathy. Past Medical History/Surgical History: Active Ambulatory Problems Diagnosis Date Noted No Active Ambulatory Problems Resolved Ambulatory Problems Diagnosis Date Noted No Resolved Ambulatory Problems No Additional Past Medical History Family History: No family history on file. Social History: Social History Socioeconomic History Marital status: Not on file Spouse name: Not on file Number of children: Not on file Years of education: Not on file Highest education level: Not on file Occupational History Not on file Tobacco Use Smoking status: Not on file Smokeless tobacco: Not on file Substance and Sexual Activity Alcohol use: Not on file Drug use: Not on file Sexual activity: Not on file Other Topics Concern Not on file Social History Narrative Not on file Social Drivers of Health Financial Resource Strain: Not on file Food Insecurity: Not on file Transportation Needs: Not on file Physical Activity: Not on file Stress: Not on file Social Connections: Not on file Interpersonal Safety: Not on file Housing Instability: Not on file Medications: 22.5 MME/Day Allergies: Not on File Complete Review of Systems: A complete review of systems was performed and was otherwise negative unless outlined in the HPI. Physical Exam Neurological Examination: Higher Mental Function: Oriented to person and place but not time or circumstance Attention span and concentration severely impaired as she can not even begin to spell the word world backwards. Recent memory severely impaired was 0/3 on delayed recall. Remote memory intact to she was able to remember where she went to high school. Language intact Fund of knowledge appropriate Ophthalmological Examination: Injected conjunctiva of the left eye along with some mild swelling ofthe left eyelid. Cranial Nerve Examination: II: Normal tracking, no evidence of hemianopia or other visual field defect. III, IV, & : EOM intact, no ptosis, no nystagmus seen. Pupils are equal and reactive to light. V: Facial sensation is intact. VII: no facial asymmetry, facial movement intact. VIII: hearing is normal. IX-X: Palate elevates in the midline. XI: Normal trapezius strength and/or movement. XII: Tongue movement is normal, position is midline and no fasciculations are observed. Tongue strength intact. Motor: Power -- No focal motor weakness noted in BL upper or lower extremities. Bulk and muscle tone are intact in BL upper and lower extremities. No rigidity or spasticity. No atrophy or abnormal movements noted. No dystonia, or motor tics. No bradykinesia, postural or kinetic tremor noted. No fasciculation or myotonia noted. No abnormal movements noticed. No evidence of pseudo bulbar paralysis; no sialorrhea, difficulties swallowing. There were no tremors seen Deep Tendon Reflexes: Right, Left: Biceps 1, 1 Brachioradialis 1, 1 Patellae 0, 0 Achilles 0, 0 Plantar response was mute bilaterally. No clonus or other pathological reflexes elicited. Sensory examination: Intact to light touch throughout. Cerebellar: Able to do jnylfe-bo-xztm bilaterally Gait and station: Deferred Pertinent Labs: White count, hemoglobin, and platelets were within normal limits at outside hospital. Urinalysis negative at outside hospital. Imaging: N/A Other Testing: N/A Assessment: Aaorn Lewis is a 79 y.o. female admitted to the neurology service for concerns of meningitis/encephalitis. Given her lack of headache and improvement of her photophobia, suspicion for meningitis is lower. However, given her altered mental status and recent shingles outbreak. There is higher concern for herpes encephalitis. Impression: Altered mental status in the context of recent shingles exacerbation: Concern for herpes encephalitis/meningitis Plan: Start acyclovir 10 milligrams/kilogram q.8 hours. Start normal saline infusion, as acyclovir without adequate fluid can crystallized in the kidneys and lead to an SOLO. Plan for MRI of the brain with and without contrast. Start EEG monitoring. Resume home medications as indicated. Will need to further discuss lumbar puncture with the patient's son as he seemed open to an IR guided LP, but later seemed apprehensive. Basic labs including CBC and CMP daily. PT and INR. DVT Prophylaxis: SubQ heparin GI Prophylaxis: Not Indicated Code Status: Discussed with the patient's son. Electing for a Full code Porfirio Choi MD PGY-2 Neurology Resident [facility] 03/02/24 Staffed with: Dr. Monteiro This patient is being followed by the Neurology Resident service. Contact attending directly during these hours: Sunday to 7:30-8:30 A.M. to Sunday 12-1:00 p.m. Primary Neurology service: [phone] Consult neurology service: [phone] Resident Stroke Service: [phone] If the patient belongs to the Stroke ESVIN service please contact the Stroke ESVIN directly. ADDENDUM More history was obtained from patient. She reported her symptoms started Sunday and she was evaluated in the ED on Sunday. Her son said he started noticing some trouble with her words through text starting but did not note changes in mentation until Sunday. He is concerned for bedside LP due to the patient's history of CSF leak after spinal surgery years ago at outside hospital. He believes she had hardware placed, but unsure and patient is unsure as well. The son's has also had significant troubles with CSF leaks ongoing. He would prefer she have LP by IR if she needs one. Physical exam: Agree with above EEG: moderate slowing, no lateralizing signs Assessment/Plan: Concern for VZV meningitis due to confusion and recent diagnosis of left V1 shingles who was started on steroids, valacyclovir and eye drops. Plan: Discontinue EEG MRI brain with and without contrast to evaluate for any infectious lesions or signs of meningitis Plan for LP by IR per preference/consent. Will evaluate for meningitis and make sure we are treating the correct diagnosis. LP consent signed and in patient's chart. Otherwise plan is the same as above. Aga Mendoza MD PGY-3 Neurology Resident [facility] Staffed with Dr. Monteiro Cosigned by Renay Monteiro MD at 03/02/2024 10:07 PM EDT Associated attestation - Renay Monteiro MD - 03/02/2024 10:07 PM EDT Attending Attestation: I saw the patient. I performed the critical/damon portions of the service. I was directly involved inthe management and treatment plan of the patient. I reviewed the resident's note. Additional Notes/Findings: History: 79 y.o. right-handed female with altered mental status (confusion, disorientation, alteredsleep pattern, and impaired memory) for 2 days; shingle infection left fronto-temporal region in the past 6 days s/p treatment with Valtrex and steroid; was transferred from outside ED for possible viral meningitis; history of back surgery and post-surgical CSK leaking; no fever or headache Examination: awake alert and grossly oriented to person and place; no meningismus; no focal motor or sensory deficit; herpetic blisters, scars/crusts left V1 territory Investigations: vEEG: generalized slow; no asymmetry, epileptiform or ictal change Assessment: Altered cognition associated with acute left V1 herpetic infection; rule out COMM[employer]ITY HE[employer] ADVISOR viral infection (VZV) Plans/Recommendations: continue IV acyclovir; IR-guided LP after brain MRI with contrast; neurological observation; extensive discussion with patient and her son; questions answered and consent obtained Renay Monterio MD, PhD documented in this encounterThe [facility]100[facility] [id number] History of Present illness Narrative* Christiano Lockhart Medhat, DPM - 01/24/2024 1:00 PM EDT Patient: Aaron Bhagatnis : 1945 PCP: Jeremiah Reed MD SUBJECTIVE This is a 78 y.o. female that presents today with a CC of elongated, thick nails. Pt states nails have been elongated and thick for many years and cause pain with ambulation in shoegear. Pt has tried previous treatment with minimal relief. Pt presents today for nail care and treatment. Positive history of venous stasis Allergies: Allergies Allergen Reactions Other Rash Past Medical History: No past medical history on file. Medications: Current Outpatient Medications: albuterol HFA 90 mcg/act inhaler, INHALE 2 PUFFS BY MOUTH EVERY 4 HOURS NEEDED FOR SHORTNESS OF BREATH, Disp: , Rfl: amLODIPine (Norvasc) 5 MG tablet, TAKE 1 TABLET BY MOUTH EVERY DAY FOR 30 DAYS, Disp: , Rfl: busPIRone (Buspar) 10 MG tablet, Take 10 mg by mouth in the morning and 10 mg before bedtime., Disp: , Rfl: calcium citrate (Calcitrate) 950 (200 Ca) MG tablet, Take 950 mg by mouth, Disp: , Rfl: gabapentin (Neurontin) 300 MG capsule, Take 300 mg by mouth in the morning and 300 mg in the evening and 300 mg before bedtime., Disp: , Rfl: Glucosamine 500 MG capsule, Take 500 mg by mouth, Disp: , Rfl: meloxicam (Mobic) 15 MG tablet, , Disp: , Rfl: Myrbetriq 50 MG 24 hr tablet, Take 50 mg by mouth, Disp: , Rfl: nortriptyline (Pamelor) 25 MG capsule, TAKE 1 CAPSULE BY MOUTH EVERY DAY AT BEDTIME, Disp: , Rfl: omeprazole (PriLOSEC) [address] capsule, TAKE 1 CAPSULE BY MOUTH EVERY DAY 30 MINUTES BEFORE MORNINGMEAL FOR 90 DAYS, Disp: , Rfl: oxyCODONE-acetaminophen (Percocet) 5-325 MG tablet, Take 1 tablet by mouth 2 (two) times a day as needed, Disp: , Rfl: Vibegron (Gemtesa) 75 MG tablet, Take 75 mg by mouth, Disp: , Rfl: Social History: Social History Socioeconomic History Marital status: Spouse name: Not on file Number of children: Not on file Years of education: Not on file Highest education level: Not on file Occupational History Not on file Tobacco Use Smoking status: Former Types: Cigarettes Passive exposure: Past Smokeless tobacco: Never Vaping Use Vaping status: Unknown Substance and Sexual Activity Alcohol use: Defer Drug use: Defer Sexual activity: Defer Other Topics Concern Not on file Social History Narrative Not on file Social Determinants of Health Financial Resource Strain: Not on file Food Insecurity: Not on file Transportation Needs: Not on file Physical Activity: Not on file Stress: Not on file Social Connections: Not on file Intimate Partner Violence: Unknown (07/05/2023) Re[facility] from [facility], [facility] [place] Safety & Environment Fear of Current or Ex-Partner: Not on file Emotionally Abused: Not on file Physically Abused: Not on file Sexually Abused: Not on file Physically or Sexually Abused: Not on file Housing Stability: Not on file ROS: General: denies fever, chills, fatigue, malaise OBJECTIVE LE EXAM: DERM: Elongated thick yellow crumbly nails digits 1 through 10. Positive hair growth b/l feet. Plusone pitting edema to bilateral ankles with notable spider veins and telangiectasias to ankle and foot region VASC: Positive palpable pedal pulses bilaterally NEURO: Gross sensation intact to bilateral feet ORTHO: Positive pain on palpation to nails 1 through 10 ASSESSMENT 1. Onychomycosis 2. Toe pain, bilateral PLAN Discussed proper foot care with patient today. Debride nails in length and thickness digits 1 through 10 Christiano Maldonado DPM documented in this encounterColumbia Regional [id number] Hospital Discharge instructions Patient Education 12/25/2023 13:05:34 Injection Treatments [...] full. Monitor the amount and color of yoururine. Check to make sure that there are no twists, bends, or kinks in the catheter tube. Visit your health care provider to have the catheter removed. Medicines Take nlgj-gqg-tgajcmt and prescription medicines only as told by [...] provider. Document Revised: 12/16/2020 Document Reviewed: 12/03/2020 [employer] Patient Education 2022 [employer]. Follow Up Care 12/03/2023 14:36:32 With:BRENDA MARIN PA-C, URL Address: [address] [place] [address] [phone] When: Unknown [facility] 08-13-2024 NotePatient Education Urology Injection Treatments for Urinary Incontinence, [...] to the leg bag with a small, stretchablewrap. This helps prevent the tubing from being pulled. ? Empty the catheter drainage bag when it is three-fourths full. Monitor the amount and color of your urine. ? Check to make sure that there are no twists, bends, or kinks in the catheter tube. ? Visit your health care provider to have the catheter removed. Medicines ? Take jguw-dkp-uuhabce and prescription medicines only as told by [...] provider. Document Revised: 12/16/2020 Document Reviewed: 12/03/2020 [employer] Patient Education ? 2022 [employer].[facility] 12-03-2023 Hospital Discharge instructions Patient Education 12/03/2023 14:10:12 EU - [...] Up Care 10/01/2023 15:36:12 With:BRENDA MARIN Address: [address] [place] [address] [facility] (1) When: Unknown Comments:Call for followup appointment with Georgette Marin PA-C within the next three weeks or so. Push fluids to keep the urine clear. Expect the Botox to start working within the next 2-3 weeks. Have a great day! [facility]07-22-2024 NotePatient Education Cystoscopy with Botox injection ? Voiding after the procedure: there may be some pain, burning, urgency, frequency and blood tingedurine following the procedure. These symptoms usually resolve [...] if you have a fever over [address] 09-26-2023 Hospital Discharge instructions Patient Education 09/26/2023 16:04:24 Botulinum Toxin [...] including vitamins, herbs, eye drops, creams, and sglk-jje-zmpdzgb medicines. Any problems you or family members [...] provider tells you to take them. Taking gqpb-pby-ftrzmoq medicines, vitamins, herbs, and supplements. General instructions [...] Follow these instructions at home: Medicines Take swpe-dvv-wqnfgcp and prescription medicines only as told by your health care provider. If you were prescribed an antibiotic medicine, take it as told by your health care provider. Do notstop using the antibiotic even if you start [...] provider. Document Revised: 11/04/2021 Document Reviewed: 11/04/2021 [employer] Patient Education 2022 [employer]. Follow Up Care 08/30/2023 10:04:37 With:MIAH ROE, BRENDA Poole, URL Address: [address] [facility] [place] [address] [phone] When: Unknown Comments:flaquita kaplan/ [facility] 04-16-2024 Hospital Discharge instructions Patient Education 08/28/2023 15:36:27 Overactive Bladder, [...] muscles thatmake your bladder squeeze too soon. This condition [...] your health care provider. General instructions Take oamy-vla-hwynclp and prescription medicines only as told by [...] provider. Document Revised: 01/17/2021 Document Reviewed: 01/17/2021 [employer] Patient Education 2022 [employer]. Follow Up Care 07/23/2023 14:35:57 With:BRENDA MARIN PA-C, URL Address: [address] [place] [address] Business (1) When:6 weeks [facility] 03-11-2024 Hospital Discharge instructions Patient Education 07/23/2023 14:28:44 [facility] - Cystoscopy with Urethral Dilation Discharge Instructions (Custom) Cystoscopy with Urethral Dilation Voiding after the procedure: there may be some pain, urethral bleeding, burning, urgency, frequencyand blood tinged urine following the procedure. These [...] Up Care 06/11/2023 13:39:28 With:BRENDA MARIN Address: [address] [place] [address] Business (1) When: Unknown Comments:Call for followup appointment with Georgette Marin PA-c within the next 2 months or so to monitor you. Please finish your antibiotics and have a great day. [facility]03-11-2024 Note [id number] [facility] 07-23-2023 NoteCystoscopy with Urethral Dilation ? Voiding after the [...] if you have a fever over [address] [facility] Evaluation note* Encounter Date Diagnosis Assessment Notes Treatment Notes Treatment Clinical Notes Jun, Essential (primary) hypertension (ICD-10 - I10) [facility] Other 01-23-2024 Hospital Discharge instructions Patient Education [...] reconstructed. Follow these instructions at home: Take orcg-yyn-lgeaoez and prescription medicines only as told by [...] provider. Document Revised: 03/07/2022 Document Reviewed: 03/07/2022 [employer] Patient Education 2022 [employer]. Follow Up Care 06/21/2022 15:14:52 With:CEZAR BERNAL, Cayden Hollins, URL Address: [address] [place] [address]- When: Unknown [facility] 01-23-2024 Evaluation + Plan note Diagnostic Tests Pending * Urine Culture 06/05/23 [facility]12-18-2023 Evaluation note* Encounter Date Diagnosis Assessment Notes [...] symptoms. Any developing patterns. Stay well hydrated. [facility] Other 12-01-2023 Evaluation + Plan noteExtracted from: Title:Discharge Note [...] cap(s), Oral, Daily With When Contact Information [facility] Additional Instructions: Call for followup appointment for anxiety/depression care. Gerald Nolasco Within 1 to [address], [place] [address]- Business (1) Additional Instructions: JEREMIAH REED Within 2 to 4 days [facility] [place] [address]- Business (1) Additional Instructions: Confusion Extracted from: Title:Consult Note-neurology Author:Rik ALVARES N ichole Date:04/13/23 ASSESSMENT: 1. Acute confusional [...] vein thrombosis (DVT) prophylaxis (Z79.899: Other termite helper (current) drug therapy) Depression, unspecified (F32.A: Depression, [...] vein thrombosis (DVT) prophylaxis (Z79.899: Other termite helper (current) drug therapy) Depression, unspecified (F32.A: Depression, [...] from: Title:Admission H & P Author:Divine TAYLOR enharis Date:04/12/23 1. AMS (altered mental statu s) [...] unknown - awaiting records from [facility] -Renal US & PVR - [...] deep vein thrombosis (DVT) prophylaxis (Z79.899: Other prison (current) drug therapy) -Heparin sq with early [...] made to ensure accuracy, however, inadvertently computerized assistant designer mistakes may be present. Future Appointments Appointment Date:06/05/2023 01:00:00 PM Scheduled Provider:BRENDA MARIN PA-C Location:[facility] Appointment Type:URO Office Visit [facility]12-01-2023 Hospital Discharge instructions Patient Education 04/13/2023 10:40:43 [...] friend for help if needed. Medicines Take disr-ppf-pltxnke and prescription medicines only as told by [...] day care, extended-care programs, or a senior living facility. The person's health care provider may [...] provider. Document Revised: 08/24/2020 Document Reviewed: 08/24/2020 [employer] Patient Education 2022 [employer]. Follow Up Care 04/12/2023 12:15:50 With:Ehsan Blair MD, NEU Address: [address] [address]- When:1 to 2 weeks Comments:This office is closed on Fridays. Please call the office on Sunday April 16, 2023 for a follow upappiontment. Thank you. With:JEREMIAH REED Address: [address] [place], [place] [id number]- [facility] () When:2 to 4 days Comments:Call for followup appointment With:[facility] Address:Unknown When: Unknown Comments:Call for followup appointment for anxiety/depression care. [facility]11-17-2023 Evaluation note* Encounter Date Diagnosis Assessment Notes Treatment Notes Treatment Clinical Notes Mar, Colon cancer screening (ICD-10 - Z12.11) [employer] Other 11-16-2023 Evaluation note* Encounter Date Diagnosis Assessment Notes Treatment Notes Treatment Clinical Notes Mar, Generalized weakness (ICD-10 - R53.1) Followup as scheduled w ortho and PT Mar, COPD, moderate (ICD-10 - J44.9) continue present medication reviewed ER report from observation status [facility] Other 03-30-2023 NoteCONSULTATION CONSULTATION DATE: 08/10/2022 TO: [...] or sooner if needed. [facility] [id number] NoteCONSULTATION PROCEDURE DATE: 08/10/2022 PROCEDURE: Right suprascapular [...] her pain symptoms post procedurally.[facility] [id number] Hospital Discharge instructions Patient Education 06/21/2022 14:35:24 [...] fried and sweet foods. General instructions Take peyi-beq-ifhylrp and prescription medicines only as told by [...] 02/24/2010 Document Revised: 08/21/2019 Document Reviewed: 05/16/2018 [employer] Patient Education 2020 [employer]. Follow Up Care 05/19/2021 14:10:29 With:BRENDA MARIN PA-C, URL Address: [address] [place] [address] When: Unknown [facility] 12-29-2022 NoteCONSULTATION CONSULTATION DATE: 05/11/2022 HISTORY [...] the diclofenac. 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 [...] months' time unless otherwise indicated.[facility] [id number] NoteCONSULTATION CONSULTATION DATE: 02/23/2022 This is a [...] months' time unless otherwise indicated.[facility] [id number] NoteCONSULTATION CONSULTATION DATE: 01/08/2022 HISTORY OF PRESENT [...] in the office post procedure.[facility] [id number] Note CONSULTATION CONSULTATION DATE: 12/07/2021 HISTORY OF [...] would like to proceed. [facility] [id number] History general Narrative - Reported* Type Description Date Medical History Chronic back pain Medical History HTN Medical History anxiety Medical History DJD Medical History osteoporosis Surgical History Lumbar laminectomy and fusion Surgical History Hysterectomy (spared L ovary) Surgical History Landaverde's neuroma Hospitalization History For surgery as above Hospitalization History TB 03/2023 [facility] [employer] Other Evaluation + Plan note Future Appointments Appointment Date:06/26/2023 02:30:00 PM Scheduled Provider:BRENDA MARIN PA-C Location:[facility] Appointment Type:URO Office Visit [facility] evaluation + Plan note Future Appointments Appointment Date:08/28/2023 03:00:00 PM Scheduled Provider:BRENDA MARIN PA-C Location:[facility] Appointment [facility] Future Appointments Appointment Date:11/27/2023 11:00:00 AM Scheduled Provider: Location:[facility] Appointment Type:Urology CALL PAT FT Appointment Date:12/03/2023 02:00:00 PM Scheduled Provider: Location:[facility] Appointment Type:Urology FT [facility] evaluation + Plan note Future Appointments Appointment Date:12/25/2023 12:40:00 PM Scheduled Provider:BRENDA MARIN PA-C Location:[facility] Appointment Type:URO [facility] noteNo InformationNortShriners Hospitals for [facility] [employer] Other Evaluoeugm note* Diagnosis Viral meningitis- Primary Unspecified viral meningitis Varicella encephalitis Postvaricella encephalitis Seizure (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 documented in this [facility] System[facility] noteNo assessment information available [facility] Work Phone: evaluation note* Diagnosis Onychomycosis- Primary Dermatophytosis of nail Toe pain, bilateral documented in this encounter [facility] HealthcareHistory and physical note Author Rosendo Law [facility] Note Date/Time March 31, 2024 12:29pm [facility] [address] [place] [address] Hospitalist H&P Signed Patient: Aaron Lewis MR#: [id number] : 1945 Acct:[id number] Age/Sex: 79 / F Adm Date: 4 Loc: Room: [address] [place] [address] Type: ADM IN Attending Dr: Rosendo Lwa MD Copies to: MD Rosendo Wray MD~ HPI DATE OF EXAMINATION: 03/31/24 HISTORY OF PRESENT ILLNESS: 79-year-old female with past medical history of recent zoster of the eye and meningitis requiring IV antibiotics and [facility] admission, hypertension, obesity, vitamin D deficiency, COPD, CKD, osteoporosis, recent diagnosis of UTI presented to emergency department for not acting right. Patient was recently here about a week ago and was diagnosed with a UTI and discharged on Keflex. Patient was acting different and confused her son spent the night there and she has been quite confused throughout the night more confused and complaining aboutsome lower abdominal pain. Here in the emergency department she was worked up and was found to have urinary retention and Nath catheter was placed draining 875. Patient was started on ceftriaxone and referred to hospitalist service forfurther management. [facility] Medical History (Updated 03/31/24 @ 12:27 by Rosendo Law MD) Hypertension Problem List clean-up per request of Phys. EHR Cmte Osteoporosis Primary hyperparathyroidism Landaverde's neuroma Hyperparathyroidism Hypercalcemia Essential (primary) hypertension COPD, moderate CKD (chronic kidney disease), stage III Anxiety Osteoporosis Problem List clean-up per request of Phys. EHR Cmte Smoker Problem List clean-up per request of Phys. EHR Cmte Uterine cancer Problem List clean-up per request of Phys. EHR Cmte GERD (gastroesophageal reflux disease) Problem List clean-up per request of Phys. EHR Cmte Ovarian cancer right Problem List clean-up per request of Phys. EHR Cmte Surgical History H/O: hysterectomy History of lumbar laminectomy History of lumbar fusion Problem List clean-up per request of Phys. EHR Cmte H/O left breast biopsy Problem List clean-up per request of Phys. EHR Cmte H/O hysterectomy with oophorectomy Problem List clean-up per request of Phys. EHR Cmte H/O oophorectomy right Problem List clean-up per request of Phys. EHR Cmte Family History Sister Brittle bone disease Daughter Fibromyalgia Legacy FamHx Relation: Daughter(s) Father History of stroke Legacy FamHx Problem: Diagnosed with Stroke Family/Other Legacy FamHx Problem: 1 sister :1 grandson over dose Mother Cancer Legacy FamHx Problem: Diagnosed with Cancer Son Hypertension Sister Diabetes Legacy FamHx Problem: 1 sister Social History Smoking Status: Never smoker Tobacco Type: cigarettes Substance Use Type: None Meds Medications and Allergies Allergies adhesive tape (Tape) Allergy (Verified 03/23/24 13:43) Rash Home Medications nortriptyline 25 mg capsule 25 mg PO QHS 30 days #30 caps 05/04/20 [Rx Confirmed 03/31/24] omeprazole 40 mg capsule,delayed release See Rx Instructions .Route .COMPLEX #90caps 02/11/24 [Rx Confirmed 03/31/24] acetaminophen 650 mg tablet,extended release (Pain Relief (acetaminophen)) 650 mg PO Q12HR 03/12/24 [History Confirmed 03/31/24] albuterol sulfate 90 mcg/actuation aerosol inhaler 1 inh inhalation Q6HR 03/12/24 [History Confirmed 03/31/24] aspirin 81 mg tablet,delayed release 81 mg PO DAILY 03/12/24 [History Confirmed 03/31/24] baclofen 5 mg tablet 10 mg PO TID 03/12/24 [History Confirmed 03/31/24] calcium carbonate 600 mg PO DAILY 03/12/24 [History Confirmed 03/31/24] cholecalciferol (vitamin D3) 50 mcg (2,000 unit) capsule 50 mcg PO DAILY 03/12/24 [History Confirmed 03/31/24] glucosamine sulfate 500 mg-chondroitin 400 mg-msm 200 mg tablet 1 tab PO BID 03/12/24 [History Confirmed 03/31/24] oxycodone-acetaminophen 5 mg-325 mg tablet 1 tab PO TID PRN pain 03/12/24 [History Confirmed 03/31/24] trospium 20 mg tablet 20 mg PO BID 03/12/24 [History Confirmed 03/31/24] cephalexin 500 mg capsule 500 mg PO BID #14 caps 03/23/24 [Rx Confirmed 03/31/24] polyethylene glycol 3350 17 gram/dose oral powder (Miralax) 17 g PO BID PRN constipation #238 grams 03/23/24 [Rx Confirmed 03/31/24] amlodipine 5 mg tablet 10 mg PO DAILY 03/31/24 [History Confirmed 03/31/24] buspirone 10 mg tablet 10 mg PO TID 03/31/24 [History Confirmed 03/31/24] gabapentin 300 mg capsule 600 mg PO TID 03/31/24 [History Confirmed 03/31/24] meloxicam 15 mg tablet 7.5 mg PO DAILY 03/31/24 [History Confirmed 03/31/24] tobramycin 0.3 %-dexamethasone 0.1 % eye drops,suspension 1 drp Eye-Both Q6H 03/31/24 [History Confirmed 03/31/24] Exam Physical Exam Vital Signs: Temp Pulse Resp BP Pulse Ox O2 Del Method 36.9 C 94 16 141/73 H 98 Room Air 03/31/24 07:19 03/31/24 10:50 03/31/24 10:50 03/31/24 10:50 03/31/24 10:50 03/31/24 10:50 Narrative: General: Alert, confused, not in acute distress HEENT: PERRLA, and intact and normocephalic. Dry mucous membrane Neck: Normal to inspection Lungs: Clear to auscultation, work of breathing within normal limit Cardiac: Regular rate and rhythm Abdomen: Soft, nontender, positive bowel sounds Genitourinary: Nath catheter in place draining marine urine Skin: Intact Hematology: No petechiae or excessive ecchymosis Musculoskeletal: Without significant trauma Neurological: Alert awake oriented x 2 and going off on a tangent, no focal deficit, cranial nerves grossly intact Psych: No suicidal ideation or homicidal ideation Results - Hospitalist H&P Lab Results Labs: Laboratory Last Values Corrected WBC 6.8 X10E3/uL (3.8-11.6) 03/31/24 07:57 Uncorrected WBC Count 6.8 x10E3/uL (3.8-11.6) 03/31/24 07:57 RBC 4.36 x10E6/uL (3.60-5.00) 03/31/24 07:57 Hgb 13.3 g/dL (11.8-15.4) 03/31/24 07:57 Hct 40.7 % (34.0-46.4) 03/31/24 07:57 MCV 93.5 fl (80-100) 03/31/24 07:57 MCH 30.4 pg (24.7-34.3) 03/31/24 07:57 MCHC 32.6 g/dL (32.0-35.0) 03/31/24 07:57 RDW 18.1 % (11.9-15.3) H 03/31/24 07:57 Plt Count 253 x10E3/uL (150-450) 03/31/24 07:57 MPV 9.6 fl (6.3-10.7) 03/31/24 07:57 Neut % (Auto) 68.2 % (.) 03/31/24 07:57 Lymph % (Auto) 19.2 % (.) 03/31/24 07:57 Price % (Auto) 8.9 % (.) 03/31/24 07:57 Eos % (Auto) 2.6 % (.) 03/31/24 07:57 Baso % (Auto) 1.1 % (.) 03/31/24 07:57 Nucleat RBC Rel Count 0.1 /100 WBC (0-0.5) 03/31/24 07:57 Neut # (Auto) 4.7 x10E3/uL (1.8-7.7) 03/31/24 07:57 Lymph # (Auto) 1.3 x10E3/uL (1.00-4.8) 03/31/24 07:57 Price # (Auto) 0.6 x10E3/uL (0.0-0.8) 03/31/24 07:57 Eos # (Auto) 0.2 x10E3/uL (0.0-0.45) 03/31/24 07:57 Baso # (Auto) 0.1 x10E3/uL (0.0-0.2) 03/31/24 07:57 Monocyte Dist Width 19.18 % (0.00-20.00) 03/31/24 07:57 PT 10.9 Seconds (9.0-12.9) 03/31/24 07:57 INR 0.9 03/31/24 07:57 APTT 28.6 Seconds (25.1-36.5) 03/31/24 07:57 PHA Creatinine Clear 43.86 03/31/24 07:57 Sodium 144 mmol/L (136-145) 03/31/24 07:57 Potassium 3.8 mmol/L (3.5-5.1) 03/31/24 07:57 Chloride 108 mmol/L (98-107) H 03/31/24 07:57 Carbon Dioxide 25.5 mmol/L (21.0-31.0) 03/31/24 07:57 Anion Gap 14.3 mEq/L (6.0-15.0) 03/31/24 07:57 BUN 19 mg/dL (7-25) 03/31/24 07:57 Creatinine 1.17 mg/dL (0.60-1.20) 03/31/24 07:57 Est GFR (CKD-EPI) 48.060 mL/Min 03/31/24 07:57 Glucose 93 mg/dL (70-100) 03/31/24 07:57 POC Glucose 91 mg/dl 03/31/24 08:20 Lactic Acid 1.2 mmol/L (0.5-2.2) 03/31/24 07:57 Calcium 9.7 mg/dL (8.6-10.3) 03/31/24 07:57 Total Bilirubin 0.4 mg/dl (0.3-1.0) 03/31/24 07:57 Direct Bilirubin 0.10 mg/dL (0.03-0.18) 03/31/24 07:57 Indirect Bilirubin 0.3 mg/dL 03/31/24 07:57 AST 14 U/L (13-39) 03/31/24 07:57 ALT 17 U/L (7-52) 03/31/24 07:57 Alkaline Phosphatase 57 U/L (34-104) 03/31/24 07:57 Total Creatine Kinase 23 U/L (30-223) L 03/31/24 07:57 Troponin I High Sens 9.0 pg/mL (0.0-15.0) 03/31/24 07:57 Total Protein 5.7 gm/dL (6.4-8.9) L 03/31/24 07:57 Albumin 3.5 gm/dL (3.5-5.7) 03/31/24 07:57 Globulin 2.2 gm/dL 03/31/24 07:57 Albumin/Globulin Ratio 1.6 03/31/24 07:57 Lipase 20.0 U/L (11.0-82.0) 03/31/24 07:57 TSH 3rd Generation 0.51 uIU/mL (0.45-5.33) 03/31/24 07:57 Urine Color Light-yellow (Yellow) 03/31/24 07:19 Urine Appearance Clear (Clear) 03/31/24 07:19 Urine pH 6.0 (5.0-9.0) 03/31/24 07:19 Ur Specific [place] 1.011 (1.001-1.030) 03/31/24 07:19 Urine Protein Negative mg/dL (Negative) 03/31/24 07:19 Urine Glucose (UA) Normal mg/dL (Normal) 03/31/24 07:19 Urine Ketones Negative (Negative) 03/31/24 07:19 Urine Occult Blood Negative (Negative) 03/31/24 07:19 Urine Nitrite Negative (Negative) 03/31/24 07:19 Urine Bilirubin Negative (Negative) 03/31/24 07:19 Urine Urobilinogen Normal mg/dL (Normal) 03/31/24 07:19 Ur Leukocyte Esterase 2+ (Negative) H 03/31/24 07:19 Urine RBC 1-2 /HPF (0-4) 03/31/24 07:19 Urine WBC 5-9 /HPF (0-4) H 03/31/24 07:19 Ur Squamous Epith Cells 1-2 /HPF (0-2) 03/31/24 07:19 Urine Bacteria None seen /HPF (None Seen) 03/31/24 07:19 Hyaline Casts 0-8 /LPF (0-8) 03/31/24 07:19 Urine Mucus Rare /LPF 03/31/24 07:19 Assessment & Plan Assessment/Plan (1) Acute metabolic encephalopathy: Plan: Likely secondary to UTI with urinary retention Patient failed outpatient Keflex Admitted to inpatient level of care as anticipate that she will require greater than 2 midnight stay For other causes of confusion: Check for vitamin B12, folate, vitamin D level, TSH Continue with ceftriaxone Follow-up urine and blood culture results (2) CKD (chronic kidney disease), stage III: Plan: Poor oral intake IV fluid with 1 L saline bolus Repeat labs for tomorrow ordered (3) Dehydration: Plan: Encouraging oral intake 1 L fluid bolus ordered (4) Hypertension: Plan: Continue with amlodipine (5) Chronic back pain greater than 3 months duration: Plan: PT OT evaluation Fall precaution (6) 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: Plan: Completed the course CT scan negative If no improvement, will consult neurology at that point Plan Plan discussed with patient and daughter at bedside in ED bed 1 High level of MDM based on above issue and discussing plan This note is created using voice recognition software. All efforts were made tominimize errors, if they are is due to assistant designer. Rosendo Law MD Hospitalist IP vs OBS Justification Based on differential dx, clinical care plan, and risk of adverse events, if untreated, in my clinical judgement this patient requires an acute care setting as: INPATIENT because of an expectation of an over 2 midnight stay. Estimated length of stay (# of days): 3 Documented By: Rosendo Law MD 03/31/24 1225 Signed By: <Electronically signed by Rosendo Law MD> 03/31/24 1229 [facility] Work Phone: Hospital course Narrative No data available for this section [facility] Hospital Discharge instructions No data available for this section [facility] Additional Instructions Increase fluids. Use Miralax twice a day until regular bowel movements. Take antibiotic for urinary tract infection.[facility] Work Phone: InstructionsNot on filedocumented in this encounter [facility] No data available for this section [facility] reason for visit Narrative* Auth/Cert (Routine) Specialty Diagnoses / Procedures Referred By Contsteve t Referred To Contact Diagnoses Viral meningitis Suspected viral meningitis Renay Monteiro MD [facility], [address] [place] [address] Phone: tel: fax: Referral ID Status Reason Start Date Expiration Date Visits Re quested Visits Authorized [id number] [address] [facility] Summary Purpose Family History No Family History Records Found Relationship Condition Age at Onset Recorded Date/T delmi sister Osteogenesis imperfecta Unknown daughter Fibromyalgia Unknown father History of stroke Unknown Unknown family member Unknown mother Malignant neoplasm Unknown son Hypertension Unknown sister Diabetes mellitus Unknown Advance Directives No Advanced Directives Records Found Date Activated Date Inactivated Comments 03/02/2024 2:57 AM Date Activated Date Inactivated Comments 03/02/2024 2:57 AM 03/07/2024 6:52 PM Advance Directive Response Recorded Date/ Time Advance Directives No March 10:20pm Advance Directive Response Recorded Date/ Time Advance Directives No March 9:20pm Advance Directive Response Recorded Date/ Time Advance Directives No March 9:38am Chief Complaint and Reason for Visit Chief Complaint Amb Documentation CC Adult Risk Stratification [facility] f/u, Viral Meningitis Chief Complaint Admit Date Amb Documentation March 11, 2024 8 :29am CC Adult Risk Stratification February 8:40am [facility] f/u, Viral Meningitis O ctober 2023 9:43am L side head/face pain March 23 1:36pm Reason for Visit Admit Date Chronic back pain greater than 3 months duration March 12, 2024 9:43am CKD (chronic kidney disease), stage III March 12, 2024 9:43am Hypertension March 12, 2024 9 :43am 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 Oc tober 2023 9:43am Chief Complaint Admit Date Amb Documentation March 11, 2024 8 :29am CC Adult Risk Stratification February 8:40am [facility] f/u, Viral Meningitis O ctober 2023 9:43am L side head/face pain March 23 1:36pm Amb Documentation March 24, 2024 9:50am confusion March 31, 2024 12:23pm Reason for Visit Admit Date Chronic back pain greater than 3 months duration March 12, 2024 9:43am CKD (chronic kidney disease), stage III March 12, 2024 9:43am Hypertension March 12, 2024 9 :43am 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 Oc tober 2023 9:43am Acute metabolic encephalopathy March 31, 2024 12:23pm Chronic back pain greater than 3 months duration March 31, 2024 12:23pm CKD (chronic kidney disease), stage III March 31, 2024 12:23pm Dehydration March 31, 2024 12:23pm Hypertension March 31, 2024 12:23pm 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 No vember 2023 12:23pm Chief Complaint Admit Date Amb Documentation March 11, 2024 8 :29am CC Adult Risk Stratification February 8:40am [facility] f/u, Viral Meningitis O ctober 2023 9:43am L side head/face pain March 23 1:36pm Amb Documentation March 24, 2024 9:50am confusion March 31, 2024 12:23pm confusion April 02, 2024 8:53am Reason for Visit Admit Date Chronic back pain greater than 3 months duration March 12, 2024 9:43am CKD (chronic kidney disease), stage III March 12, 2024 9:43am Hypertension March 12, 2024 9 :43am 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 Oc tober 2023 9:43am Acute metabolic encephalopathy March 31, 2024 12:23pm Acute urinary retention March 31, 024 12:23pm Altered mental status March 31 12:23pm Chronic back pain greater than 3 months duration March 31, 2024 12:23pm CKD (chronic kidney disease), stage III March 31, 2024 12:23pm Dehydration March 31, 2024 12:23pm Hypertension March 31, 2024 12:23pm 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 [place] [id number] PCP - General Family Medicine 03/03/24 Team Status: Active Member Role Status Dates Jeremiah Reed MD Primary Care Provider Active Team Status: Active Member Role Status Dates Jeremiah Reed MD Primary Care Provider Active Start: December 18, 2023 Sheri Lozano , JENNIFER-C Attending Provider Active St art: December 18, 2023 Team Status: Active Member Role Status Dates Jeremiah Reed MD Primary Care Provider Active Start: March 01, 2024 Rae Ruth MD Attending Provider Active Sta rt: March 01, 2024 Team Status: Active Member Role Status Dates Jeremiah Reed MD Primary Care Provide r, Attending Provider Active Start: March 10, 2024 Team Status: Active Member Role Status Dates Jeremiah Reed MD Primary Care Provider Active Start: March 11, 2024 Jenny Holguin CMA Attending Provider Active Start: March 11, 2024 Team Status: Active Member Role Status Dates Jeremiah Reed MD Primary Care Provide r, Attending Provider Active Start: March 11, 2024 Team Status: Inactive Member Role Status Dates Jeremiah Reed MD Primary Care Provide r, Attending Provider Active Start: March 12, 2024 End: March 12, 2024 Team Status: Active Member Role Status Dates Jeremiah Reed MD Primary Care Provider Active Start: March 02, 2024 Shyam Bingham DO Attending Provider Active Sta rt: March 02, 2024 Team Status: Active Member Role Status Dates Jeremiah Reed MD Primary Care Provide r, Attending Provider Active Start: March 13, 2024 Team Status: Inactive Member Role Status German Reed MD Primary Care Provider Active Start: March 23, 2024 End: March 23, 2024 Elder Garcia APRN Emergency Provider Active Start: March 23, 2024 End: March 23, 2024 Team Status: Active Member Role Status Dates Jeremiah Reed MD Primary Care Provider Active Start: March 24, 2024 Jenny Holguin CMA Attending Provider Active Start: March 24, 2024 Team Status: Active Member Role Status Dates Jarad Vargas DO Emergency Provider Active Start: March 31, 2024 Jeremiah Reed MD Primary Care Provider Active Start: March 31, 2024 Rosendo Law MD Admit Provider, Atte nding Provider Active Start: March 31, 2024 Team Status: Inactive Member Role Status Dates Jarad Vargas DO Emergency Provider Active Start: March 31, 2024 End: April 03, 2024 Jeremiah Reed MD Primary Care Provider Active Start: March 31, 2024 End: April 03, 2024 Rosendo Law MD Admit Provider, Atte nding Provider Active Start: March 31, 2024 End: April 03, 2024 Ashli Bartlett MD Other Provider Active Start: No vember 2023 End: April 03, 2024 Ray Fofana MD Other Provider Active Start: N ovember 2023 End: April 03, 2024 Pamella Avitia APRN Other Provider Active St art: March 31, 2024 End: April 03, 2024 Johnnie Jean Jr, DO Other Provider Active S tart: March 31, 2024 End: April 03, 2024 Sung Craig MD Other Provider Active Start: March 31, 2024 End: April 03, 2024 Team Status: Active Member Role Status Dates Jarad Vargas DO Emergency Provider Active Start: April 02, 2024 Jeremiah Reed MD Primary Care Provider Active Start: April 02, 2024 Rosendo Law MD Admit Provider, Othe r Provider Active Start: April 02, 2024 Ashli Bartlett MD Other Provider Active Start: No vember 2023 Ray Fofana MD Attending Provider, Other Provider Active Start: April 02, 2024 Pamella Avitia APRN Other Provider Active St art: April 02, 2024 [place] Kosta Belcik , DO Other Provider Active S tart: April 02, 2024 Sung Craig MD Other Provider Active Start: April 02, 2024 Director Career Relationship Specialty Start Date End Date Jeremiah Reed MD [address] [facility] [place] [address] PCP - General Family Medicine 08/30/23 Director Career Relationship Specialty Start Date End Date Jeremiah Reed MD [address] [facility] [place] [phone] PCP - General Family Medicine 08/30/23 INFORMATION SOURCE (unrecogn ized section and content) DATE CREATED AUTHOR 09/08/2022 [facility] [place] DATE CREATED AUTHOR AUTHOR'S ORGANIZ ATION 01/26/2024 [facility] EPIC DATE CREATED AUTHOR AUTHOR'S ORGANIZ ATION 02/11/2024 [facility] DATE CREATED AUTHOR AUTHOR'S ORGANIZ ATION 04/17/2024 [facility] DATE CREATED AUTHOR AUTHOR'S ORGANIZ ATION 04/27/2024 [facility] DATE CREATED AUTHOR AUTHOR'S ORGANIZ ATION 05/09/2024 [facility] Scheduled Active and Recently Administ ered Medications (unrecognized section and content) Medication Order 03/05/2024 03/06/2024 03/07/2024 acyclovir (ZOVIRAX) 705 mg in sodium chloride 0.9 % 250 mL IVPB 705 mg (rounded from 706 mg = 10 mg/kg 70.6 kg Adjusted weight), intravenous, at 264 mL/hr, Administer over 60 Minutes, Every 12 hours, First dose on 03/02/24 at 0430, VESICANT (YELLOW), 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 unable to start new line. Neuro aware)1645 (New Bag - Provider: Viki Read RN)1745 (Stop Bag - Provider: Gayla Mcwilliams RN) 0407 (New Bag - Provider: Tashia Redding RN)0507 (Stop Bag - Provider: Tashia Redding RN)1625 (New Bag - Provider: Carolin Jerome RN)1725 (Stop Bag - Provider: Carolin Jerome RN) 0525 (New Bag - Provider: Fannie Rooney RN)0625 (Stop Bag - Provider: Fannie Rooney RN)1630 (Due) amLODIPine (NORVASC) tablet 5 mg 5 mg, oral, Daily, First dose on 03/02/24 at 0900, Look-alike/sound-iman e medication - verify indication for use. Avoid grapefruit juice. 0852 (Given - Provider: Gayla Mcwilliams RN) 0801 (Given - Provider: Carolin Jerome RN) 0808 (Given - Provider: Gayla Mcwilliams RN) aspirin EC tablet 81 mg 81 mg, oral, Daily, First dose on 03/02/24 at 0900, Do not crush or chew. 0852 (Given - Provider: Gayla Mcwilliams RN) 0801 (Given - Provider: Carolin Jerome RN) 0809 (Given - Provider: Gayla Mcwilliams RN) busPIRone (BUSPAR) tablet 10 mg 10 mg, oral, 2 times daily, First dose on 03/02/24 at 0900, Look-alike/sound-iman e medication - verify indication for use. Avoid grapefruit juice. 0852 (Given - Provider: Gayla Mcwilliams RN)2026 (Given - Provider: Tashia Redding RN) 0801 (Given - Provider: Carolin Jerome RN)205 (Given - Provider: Fannie Rooney RN) 0809 (Given - Provider: Gayla Mcwilliams RN)2100 (Due) calcium carbonate (OS-RAYMON) 500 mg elemental (1,250 mg) tablet 500 mg 500 mg, oral, Daily with breakfast, First dose on 03/02/24 at 0800, Ordered as elemental calcium. 500 mg elemental calcium = 1250 mg calcium carbonate 0852 (Given - Provider: Gayla Mcwilliams RN) 0801 (Given - Provider: Carolin Jerome RN) 0809 (Given - Provider: Gayla Mcwilliams RN) heparin (porcine) injection 5,000 Units 5,000 Units, subcutaneous, Every 8 hours scheduled, First dose (after last modification) on Sun03/04/24 at 1400, Notify prescriber if INR greater than 1.9, hemoglobin less than 10 mg/dL, aPTT greater than 40 seconds, and/or platelet count less than 100,000/mm Look-alike/sound-iman e medication - verify indication for use. Observe for bleeding. 0244 (Given - Provider: Tashia Redding RN)0852 (Given - Provider: Gayla Mcwilliams RN)1640 (Given - Provider: Viki Read RN) 0429 (Given - Provider: Tashia Redding RN)0801 (Given - Provider: Carolin Jerome, GIORGIO)1628 (Given - Provider: Carolin Jerome, GIORGIO)205 (Given - Provider: Fannie Rooney RN) 0809 (Given - Provider: Gayla Mcwilliams RN)1700 (Due) melatonin (CIRCADIN) tablet 5 mg 5 mg, oral, Nightly, First dose on 03/02/24 at 2330 2026 (Given - Provider: Tashia Redding RN) 2052 (Given - Provider: Fannie Rooney RN) 220 (Due) nortriptyline (PAMELOR) capsule 25 mg 25 mg, oral, Nightly, First dose on Sun03/02/24 at 0200, Look-alike/sound-iman e medication - verify indication for use. 2026 (Given - Provider: Tashia Redding RN) 2052 (Given - Provider: Fannie Rooney RN) 2200 (Due) oxyCODONE-acetaminoph en (PERCOCET) 5-325 mg per tablet 1 tablet (COMPLETED) 1 tablet, oral, Once, On Sun03/05/24 at 0245, For 1 dose, Look-alike/sound-iman e medication - verify indication for use. 0244 (Given - Provider: Tashia Redding RN) oxyCODONE-acetaminoph en (PERCOCET) 5-325 mg per tablet 1 tablet 1 tablet, oral, Nightly, First dose on Sun03/05/24 at 2230, Look-alike/sound-iman e medication - verify indication for use. 2245 (Given - Provider: Tashia Redding RN) 2052 (Given - Provider: Fannie Rooney, RN) 2200 (Due) sodium chloride 0.9 % flush 10 mL(Linked Group 1) 10 mL, intravenous, Every 12 hours, First dose on Sun03/05/24 at 1130, PICC line. Administer 10 mL per lumen; 10 mL total (for single lumen flush) 1130 (Given - Provider: aGyla Mcwilliams RN)2027 (Given - Provider: Tashia Redding RN) 08 (Given - Provider: Carolin Jerome, RN)2053 (Given - Provider: Fannie Rooney, RN) 113 (Given - Provider: Gayla Mcwilliams RN)2330 (Due) sodium chloride 0.9 % flush 3 mL 3 mL, intravenous, Every 12 hours scheduled, First dose on Sun03/02/24 at 0045 0900 (Not Given - Provider: Gayla Mcwilliams RN - Reason: Loss of IV access)2099 (Canceled Entry - Provider: Tashia Redding RN) 08 (Given - Provider: Carolin Jerome, IGORGIO)2053 (Given - Provider: Fannie Rooney, GIORGIO) 0811 (Given - Provider: Gayla Mcwilliams RN)2100 (Due) tobramycin-dexAMETHas one (TOBRADEX) 0.3-0.1 % ophthalmic suspension 1 drop 1 drop, left eye, 2 times daily, First dose on Sun03/02/24 at 0215, Look-alike/sound-iman e medication - verify indication for use. 0852 (Given - Provider: Gayla Mcwilliams RN)2027 (Given - Provider: Tashia Redding RN) 08 (Given - Provider: Carolin Jerome, RN)2053 (Given - Provider: Fannie Rooney, GIORGIO) 0809 (Given - Provider: Gayla Mcwilliams RN)2100 (Due) PRN Medication Order 03/05/2024 03/06/2024 03/07/2024 acetaminophen (TYLENOL EXTRA STRENGTH) tablet 500 mg (COMPLETED) 500 mg, oral, Every 6 hours PRN, moderate pain - pain scale 4-6, severe pain - pain scale 7-10, Starting on 03/02/24 at 1940, For 4 doses 0043 (Given - Provider: Fannie Rooney RN) albuterol (PROVENTIL,VENTOLIN) nebulizer solution 2.5 mg 2.5 mg, nebulization, Every 4 hours PRN, wheezing, Starting on 03/02/24 at 0152, Implement INPATIENT/ED Bronchodilator Clinical Practice Guidelines? Yes dextrose (GLUTOSE) 40 % gel 15 g 15 g, oral, As needed, low blood sugar, blood glucose less than 70 mg/dL, Starting on 03/02/24 at 0031, If patient conscious and taking PO. If blood glucose is not greater than 70 mg/dL after initial treatment, repeat treatment. dextrose 50 % in water (D50W) 50% solution 25 mL 25 mL, intravenous, As needed, low blood sugar, blood glucose less than 70 mg/dL and unconscious or NPO with IV access, Starting on 03/02/24 at 0031, Push over 1-3 minutes STAT. If conscious and not NPO, immediately follow with meal tray or high protein (7 grams) snack if tray not available. If NPO, initiate 5% dextrose in water at 100 mL/hr and contact prescriber for additional orders. If blood glucose is not greater than 70 mg/dL after initial treatment, repeat treatment. VESICANT (RED) Warning: HYPERTONIC solution. diclofenac sodium (VOLTAREN) 1 % gel 2 g 2 g, topical, 3 times daily PRN, pain, Starting on 03/02/24 at 1941, Use dosing card to measure dose. Apply to shoulder. 1647 (Given - Provider: Viki Read, GIORGIO) 0811 (Given - Provider: Gayla Mcwilliams RN) glucagon HCL injection 1 mg 1 mg, intramuscular, As needed, low blood sugar, blood glucose less than 70 mg/dL and unconscious or NPO without IV access., Starting on 03/02/24 at 0031, If conscious and not NPO, immediately follow with meal tray or high protein (7Grams) snack if tray not available. If NPO, initiate IV 5% Dextrose/Water at 100 mL/hr and contact prescriber for additional orders. If blood glucose is not greater than 70 mg/dL after initial treatment, repeat treatment. hydrOXYzine (ATARAX) tablet 25 mg 25 mg, oral, 3 times daily PRN, anxiety, Starting on Sun03/03/24 at 1035, Look-alike/sound-alike medication - verify indication for use. 2027 (Given - Provider: Tashia Redding RN) 105 (Given - Provider: Carolin Jerome, RN)2052 (Given - Provider: Fannie Rooney RN) 1358 (Given - Provider: Gayla Mcwilliams RN) ondansetron (PF) (ZOFRAN) injection 4 mg 4 mg, intravenous, Every 8 hours PRN, nausea, vomiting, Starting on Sun03/03/24 at 0857, Administer over 2-5 minutes. oxyCODONE-acetaminophen (PERCOCET) 5-325 mg per tablet 1 tablet (COMPLETED) 1 tablet, oral, Once as needed, severe pain - pain scale 7-10, Starting on Sun03/07/24 at 0148, For 1 dose, Look-alike/sound-alike medication - verify indication for use. 0153 (Given - Provider: Fannie Rooney RN) sodium chloride 0.9 % flush 10 mL(Linked Group 1) 10 mL, intravenous, As needed, line care, Starting on Sun03/05/24 at 1115, PICC line. Administer 10 mL to each lumen before and after each use. Administer 10 mL per lumen; 10 mL total (for single lumen flush) sodium chloride 0.9 % flush 20 mL(Linked Group 1) 20 mL, intravenous, As needed, line care, Starting on Sun03/05/24 at 1115, PICC line. Administer 20 mL to each lumen after lab draws, blood infusion, and meds known to precipitate. Administer 20 mL per lumen; 20 mL total (for single lumen flush) sodium chloride 0.9 % flush 3 mL 3 mL, intravenous, As needed, line care, before and after each intermittent use, Starting on Sun03/02/24 at 0031 sodium chloride 0.9 % flush bag 25 mL, intravenous, at 100 mL/hr, Administer over 15 Minutes, As needed, line care, line care after IVPB administration, Starting on Sun03/02/24 at 0031 Linked Groups Order Group 1: Consult PICC nurse (COMPLETED) Reason for consult? Insert PICC, Indication: Difficult Access, Duration of therapy greater than 14 days to months, Indication for less than 5 days: Antibiotic therapy not appropriate for a midline, Number of Lumen(s): 1 Lumen And sodium chloride 0.9 % flush 10 mLJump to med 10 mL, intravenous, Every 12 hours, First dose on Sun03/05/24 at 1130, PICC line. Administer 10 mL per lumen; 10 mL total (for single lumen flush) And sodium chloride 0.9 % flush 10 mLJump to med 10 mL, intravenous, As needed, line care, Starting on Sun03/05/24 at 1115, PICC line. Administer 10 mL to each lumen before and after each use. Administer 10 mL per lumen; 10 mL total (for single lumen flush) And sodium chloride 0.9 % flush 20 mLJump to med 20 mL, intravenous, As needed, line care, Starting on Sun03/05/24 at 1115, PICC line. Administer 20 mL to each lumen after lab draws, blood infusion, and meds known to precipitate. Administer 20 mL per lumen; 20 mL total (for single lumen flush) Goals (unrecognized section and content) Goals may be documented in a n alternate section FOR RECORDS PERTAINING TO PATIENTS WHO ARE [...] BE BASED ON THE PRIMARY CLINICAL RECORDS. [employer] provides no warranty or guarantee of the accuracy or completeness of information in this document.
--- NOTE | 2024-05-15 13:20 | P.CN_ITS ---
Consult Note: HPI Data of Consult Patient: known to practice within the last 3 years Requesting Physician: Sheri Lozano NP Primary Care Provider: Tierra Newell MD Consult Narrative Reason for consult: f/u Narrative: Jing Hoffmann a pleasant 79 year old female presents for evaluation and management of chronic neck and low back pain. Patient reporting moderate to severe low back pain with radiculopathy, greater than 3 months unresponsive to HEP and conservative medications. Pain today 4-5/10 aching sharp increasing to 8/10 with activity, standing, walking, pushing, pulling, ADLS. Pain improved with heat, lying, and sitting. Patient recently underwent bilateral L4-5 L5-S1 RFA with no improvement. Continues to have moderate to severe low back pain. Recent lumbar MRI completed with results below. recently underwent right L4/5 L5/S1 TFESI with 30% improvement ongoing. since last visit she was diagnosed with shingles of the left periorbital, continues to f/u with PCP and ophthalmology. cc:: CC: Sheri Lozano NP Review of Systems ROS Status of ROS 10 or more systems reviewed and unremark able except as noted in history and below Musculoskeletal Reports: back pain, extremity pain and joint pain PFSH PFSH Medical History (Updated 05/15/24 @ 13:22 by Sheri Lozano NP) Metabolic encephalopathy ?G93.41 - Metabolic encephalopathy (ICD-10) COPD (chronic obstructive pulmonary disease) ?J44.9 - Chronic obstructive pulmonary disease, unspecified (ICD-10) GERD (gastroesophageal reflux disease) ?K21.9 - Gastro-esophageal reflux disease without esophagitis (ICD-10) Chronic pain ?G89.29 - Other chronic pain (ICD-10) Anxiety ?F41.9 - Anxiety disorder, unspecified (ICD-10) HTN (hypertension) ?I10 - Essential (primary) hypertension (ICD-10) Chronic prescription opiate use ?Z79.891 - 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 of opiate analgesic (ICD-10) Shoulder arthritis ?M19.019 - Primary osteoarthritis, unspecified shoulder (ICD-10) Cervical spondylosis ?M47.812 - Spondylosis without myelopathy or radiculopathy, cervical region (ICD-10) Surgical History History of lumpectomy of left breast ?Z98.890 - Other specified postprocedural states (ICD-10) History of back surgery ?Z98.890 - Other specified postprocedural states (ICD-10) History of hysterectomy ?Z90.710 - Acquired absence of both cervix and uterus (ICD-10) Family History Mother Family history of cancer Father Family history of stroke Grandfather Family history of stroke Social History Within the past year, how often did you have a drink containing alcohol: never Score interpretation: A score less than 3 is consistent with normal alcohol consumption. Smoking status: Former smoker Non-prescribed substance use: denies use Previous occupational history: retired Highest level of school completed/degree received: high school graduate Are you now , , , , never or living with a partner: Little interest or pleasure in doing things: not at all Feeling down, depressed, or hopeless: not at all Feel stressed/tense/nervous/anxious/difficulty sleeping: not at all Do you think of yourself as: straight/heterosexual Gender Identity: female Meds Home Medications and Allergies Home Medications ?Medication ?Instructions ?Recorded ?Confirmed ?Type multivitamin 1 tab PO DAILY 10/26/22 02/04/24 History omeprazole 40 mg capsule,delayed 40 mg PO DAILY 10/26/22 04/22/24 History release calcium carbonate (Calcium 600) 600 mg PO DAILY 03/21/23 04/22/24 History meloxicam 15 mg tablet 7.5 mg PO DAILY 03/21/23 04/22/24 History gabapentin 300 mg capsule 300 mg PO TID #270 caps 06/07/23 03/01/24 Rx baclofen 10 mg tablet 5 mg PO Q12H PRN muscle spasm 07/19/23 04/22/24 History acetaminophen 325 mg tablet 650 mg PO Q6H PRN pain 08/30/23 04/22/24 History amlodipine 2.5 mg tablet 5 mg PO DAILY 08/30/23 04/22/24 History aspirin 81 mg tablet,delayed 81 mg PO DAILY 08/30/23 04/22/24 History release glucosamine sulfate 500 mg tablet 500 mg PO BID 08/30/23 04/22/24 History (Glucosamine) oxycodone-acetaminophen 5 mg-325 1 tab PO TID PRN pain 08/30/23 04/22/24 History mg tablet (Percocet) nortriptyline 25 mg capsule 25 mg PO DAILY #90 caps 10/17/23 04/22/24 Rx albuterol sulfate 90 mcg/actuation 2 puff inhalation Q4H PRN 12/28/23 04/22/24 History aerosol inhaler shortness of breath or wheezing buspirone 10 mg tablet 10 mg PO BID 12/28/23 04/22/24 History gabapentin 300 mg capsule 300 mg PO TID #90 caps 02/25/24 Rx oxycodone-acetaminophen 5 mg-325 1 tab PO TID PRN pain #90 tabs 02/25/24 03/01/24 Rx mg tablet (Percocet) methylprednisolone 4 mg tablets in 4 mg PO DAILY shingles #21 ea 02/27/24 03/01/24 Rx a dose pack (Medrol (Wilfred)) tobramycin 0.3 %-dexamethasone 1 drp ophthalmic (eye) Q6H 02/27/24 04/22/24 Rx 0.05 % eye drops,suspension shingles 7 days #5 mL (Tobradex ST) baclofen 10 mg tablet 10 mg PO BID PRN pain 03/01/24 03/01/24 History cholecalciferol (vitamin D3) 50 2,000 unit PO DAILY 03/01/24 04/22/24 History mcg (2,000 unit) tablet (Vitamin D3) trospium 20 mg tablet 20 mg PO DAILY 03/01/24 04/22/24 History naloxone 4 mg/actuation nasal 4 mg intranasal Q2M PRN opioid 03/27/24 Rx spray (Narcan) overdose #1 ea oxycodone-acetaminophen 5 mg-325 1 tab PO TID PRN pain #90 tabs 03/27/24 Rx mg tablet (Percocet) oxycodone-acetaminophen 5 mg-325 1 tab PO TID PRN pain #90 tabs 05/08/24 Rx mg tablet (Percocet) Allergies Allergy/AdvReac Type Severity Reaction Status Date / Time No Known Drug Allergies Allergy Verified 04/22/24 09:59 Exam Constitutional Documenting provider has reviewed patient's vital signs: yes Common normals: no apparent distress, oriented x3, healthy appearing, alert and well nourished General appearance: cooperative HENMT Common normals: normocephalic, hearing grossly normal bilaterally and moist oral mucous membranes Head and scalp: normocephalic Eye Common normals: PERRL Pupil: PERRL Other: no visible rash or vesicles, mild edema to left periorbital area Neck & C-Spine Common normals: full ROM General: normal visual inspection Cervical spine: pain with cervical ROM and cervical spine tenderness Other: reports intermittent numbness tingling and weakness of RUE strength 5/5 on exam negative spurlings sensation intact and equal to BUE Chest Common normals: inspection of chest normal Respiratory Common normals: normal respiratory effort, no retractions and no use of accessory muscles Back & Pelvis Lumbar spine/lower back: ROM limited, pain with ROM and straight leg raise positive right Sacroiliac joints: SI joint(s) abnormal (right SIJ positive daxa/fadir, thigh thrust, gaenslen ) Other: decreased sensation to right L4,5,S1 pattern strength 5/5 in BLE positive facet loading Extremity Common normals: normal to inspection Right upper extremity: shoulder joint (pain and limited ROM, tender to touch) Other: limited ROM with abduction and overhead extension, unable to perform scratch test due to pain Neuro Common normals: oriented x3, CN's II-XII intact bilaterally, moves all extremities, no focal motor deficits, no sensory deficits noted and deep tendon reflexes 2+ bilaterally Sensorium/orientation: alert Motor exam: strength 5/5 throughout and no movement abnormalities noted Psych Common normals: mental status grossly normal, thought process normal, cooperative, affect normal, speech normal and activity/motor behavior normal Speech: normal speech Thought process: normal thought process Results Additional Findings Additional findings: If on a controlled substance or opioids, I have checked an [place]AR[place] report on this patient and there are no aberrancies noted in the prescribing history.??If on a controlled substance or opioid a drug screen was completed and reviewed within the last year, and if there has not been a drug screen completed we ordered one today to monitor higher risk, state monitored pain medication use. As part of providing excellent, safe, comprehensive care, the following was completed at our patient's visit: 1. A medication reconciliation and review to ensure accurate knowledge of current/active medications, including asking our patients to inform us about any [id number] medications or herbal remedies/nutritional supplements/alternative remedies. 2. A review to specifically ensure our patients have had annual screening for screening for depression, screening for tobacco use, and screening for unhealthy alcohol use. For concerning screenings had a discussion with the patient, provided patient education, and recommended follow-up with primary care provider when appropriate. If patient noted with a risk of falling, they received education on strength, gait, and balance training to prevent future risk of falling. Assessment and Plan Assessment and Plan (1) Lumbar stenosis with neurogenic claudication: (2) Lumbar spondylosis: (3) Cervical radiculopathy: (4) Primary osteoarthritis, right shoulder: (5) Tendinopathy of right shoulder: (6) Cervical spinal stenosis: (7) Failed back syndrome: (8) PHN (postherpetic neuralgia): Plan pt not interested in spinal cord stimulator trial at this time due to transportation issues and commitment patient noticing increased heartburn with ana laura, has been told in the past to stop OTC NSAIDs while on meloxicam. DC meloxicam continue percocet 5-325mg TID PRN moderate to severe pain increase gabapentin 600mg TID, risks vs benefits reviewed start transdermal therapeutics cream 6a TID QID PRN for pain secondary to PHN update uDS today f/u 1 month
== END 2024-05-15 12:32 | disposition home or self-care (01) ==
PROVIDERS: PCP Family Medicine; Visit Provider Nurse Practitioner
DX: M48.062 Spinal stenosis, lumbar region with neurogenic claudication (principal); M47.816 Spondylosis without myelopathy or radiculopathy, lumbar region; M54.12 Radiculopathy, cervical region; M19.011 Primary osteoarthritis, right shoulder; M77.8 Other enthesopathies, not elsewhere classified; M48.02 Spinal stenosis, cervical region; M96.1 Postlaminectomy syndrome, not elsewhere classified; B02.29 Other postherpetic nervous system involvement
CPT/HCPCS: G0463

== ENCOUNTER 2024-06-18 12:58 | Outpatient (OUT) | payer MEDICARE, SELFPAY ==
--- NOTE | 2024-06-18 13:34 | PM.CN ---
Consult Note: HPI Data of Consult Patient: known to practice within the last 3 years Requesting Physician: Sheri Lozano NP Primary Care Provider: Tierra Newell MD Consult Narrative Reason for consult: f/u Narrative: Jing Hoffmann a pleasant 79 year old female presents for evaluation and management of chronic neck and low back pain. Patient reporting moderate to severe low back pain with radiculopathy, greater than 3 months unresponsive to HEP and conservative medications. Pain today 4-5/10 aching sharp increasing to 8/10 with activity, standing, walking, pushing, pulling, ADLS. Pain improved with heat, lying, and sitting. currently engaged in PT at home without benefit. utilizing tylenol, naproxen, gabapentin, nortriptyline and percocet PRN with benefit without side effects. denies falls since last visit, utilizing walker. cc:: CC: Sheri Lozano NP Review of Systems ROS Status of ROS 10 or more systems reviewed and unremarkable except as noted in history and below Musculoskeletal Reports: back pain, extremity pain and joint pain PFSH PFS Medical History (Updated 06/18/24 @ 13:36 by Sheri Lozano NP) Metabolic encephalopathy ?G93.41 - Metabolic encephalopathy (ICD-10) COPD (chronic obstructive pulmonary disease) ?J44.9 - Chronic obstructive pulmonary disease, unspecified (ICD-10) GERD (gastroesophageal reflux disease) ?K21.9 - Gastro-esophageal reflux disease without esophagitis (ICD-10) Chronic pain ?G89.29 - Other chronic pain (ICD-10) Anxiety ?F41.9 - Anxiety disorder, unspecified (ICD-10) HTN (hypertension) ?I10 - Essential (primary) hypertension (ICD-10) Chronic prescription opiate use ?Z79.891 - termination clerk (current) use of opiate analgesic (ICD-10) Shoulder arthritis ?M19.019 - Primary osteoarthritis, unspecified shoulder (ICD-10) Cervical spondylosis ?M47.812 - Spondylosis without myelopathy or radiculopathy, cervical region (ICD-10) Surgical History History of lumpectomy of left breast ?Z98.890 - Other specified postprocedural states (ICD-10) History of back surgery ?Z98.890 - Other specified postprocedural states (ICD-10) History of hysterectomy ?Z90.710 - Acquired absence of both cervix and uterus (ICD-10) Family History Mother Family history of cancer Father Family history of stroke Grandfather Family history of stroke Social History Within the past year, how often did you have a drink containing alcohol: never Score interpretation: A score less than 3 is consistent with normal alcohol consumption. Smoking status: Former smoker Non-prescribed substance use: denies use Previous occupational history: retired Highest level of school completed/degree received: high school graduate Are you now , , , , never or living with a partner: Little interest or pleasure in doing things: not at all Feeling down, depressed, or hopeless: not at all Feel stressed/tense/nervous/anxious/difficulty sleeping: not at all Do you think of yourself as: straight/heterosexual Gender Identity: female Meds Home Medications and Allergies Home Medications ?Medication ?Instructions ?Recorded ?Confirmed ?Type omeprazole 40 mg capsule,delayed 40 mg PO DAILY 10/26/22 04/22/24 History release calcium carbonate (Calcium 600) 600 mg PO DAILY 03/21/23 04/22/24 History acetaminophen 325 mg tablet 650 mg PO Q6H PRN pain 08/30/23 04/22/24 History aspirin 81 mg tablet,delayed 81 mg PO DAILY 08/30/23 04/22/24 History release buspirone 10 mg tablet 15 mg PO BID 12/28/23 05/15/24 History tobramycin 0.3 %-dexamethasone 1 drp ophthalmic (eye) Q6H 02/27/24 04/22/24 Rx 0.05 % eye drops,suspension shingles 7 days #5 mL (Tobradex ST) baclofen 10 mg tablet 10 mg PO BID PRN pain 03/01/24 03/01/24 History cholecalciferol (vitamin D3) 50 2,000 unit PO DAILY 03/01/24 04/22/24 History mcg (2,000 unit) tablet (Vitamin D3) trospium 20 mg tablet 20 mg PO DAILY 03/01/24 04/22/24 History naloxone 4 mg/actuation nasal 4 mg intranasal Q2M PRN opioid 03/27/24 Rx spray (Narcan) overdose #1 ea oxycodone-acetaminophen 5 mg-325 1 tab PO TID PRN pain #90 tabs 05/08/24 Rx mg tablet (Percocet) carboxymethylcellulose sodium 1 % 1 drp ophthalmic (eye) Q6H 05/15/24 05/15/24 History eye liquid gel drops docusate sodium 100 mg capsule 100 mg PO DAILY 05/15/24 05/15/24 History (Colace) gabapentin 600 mg tablet 600 mg PO TID 05/15/24 05/15/24 History ondansetron 4 mg disintegrating 4 mg PO TID-QID PRN nausea and 05/15/24 05/15/24 History tablet vomiting polyethylene glycol 3350 17 17 g PO DAILY 05/15/24 05/15/24 History gram/dose oral powder (Miralax) nortriptyline 25 mg capsule 25 mg PO DAILY #30 caps 06/02/24 Rx oxycodone-acetaminophen 5 mg-325 1 tab PO TID PRN pain #90 tabs 06/02/24 Rx mg tablet (Percocet) Allergies Allergy/AdvReac Type Severity Reaction Status Date / Time No Known Drug Allergies Allergy Verified 04/22/24 09:59 Exam Constitutional Documenting provider has reviewed patient's vital signs: yes Common normals: no apparent distress, oriented x3, healthy appearing, alert and well nourished General appearance: cooperative [facility] Common normals: normocephalic, hearing grossly normal bilaterally and moist oral mucous membranes Head and scalp: normocephalic Eye Common normals: PERRL Pupil: PERRL Other: no visible rash or vesicles, mild edema to left periorbital area Neck & C-Spine Common normals: full ROM General: normal visual inspection Cervical spine: pain with cervical ROM Chest Common normals: inspection of chest normal Respiratory Common normals: normal respiratory effort, no retractions and no use of accessory muscles Back & Pelvis Lumbar spine/lower back: ROM limited, pain with ROM and straight leg raise positive right Sacroiliac joints: SI joint(s) abnormal (right SIJ positive daxa/fadir, thigh thrust, gaenslen ) Other: decreased sensation to right L4,5,S1 pattern strength 5/5 in BLE positive facet loading Extremity Common normals: normal to inspection Right upper extremity: shoulder joint (pain and limited ROM, tender to touch) Other: limited ROM with abduction and overhead extension, unable to perform scratch test due to pain Neuro Common normals: oriented x3, CN's II-XII intact bilaterally, moves all extremities, no focal motor deficits, no sensory deficits noted and deep tendon reflexes 2+ bilaterally Sensorium/orientation: alert Motor exam: strength 5/5 throughout and no movement abnormalities noted Psych Common normals: mental status grossly normal, thought process normal, cooperative, affect normal, speech normal and activity/motor behavior normal Speech: normal speech Thought process: normal thought process Results Additional Findings Additional findings: If on a controlled substance or opioids, I have checked an [place]AR[place] report on this patient and there are no aberrancies noted in the prescribing history.??If on a controlled substance or opioid a drug screen was completed and reviewed within the last year, and if there has not been a drug screen completed we ordered one today to monitor higher risk, state monitored pain medication use. As part of providing excellent, safe, comprehensive care, the following was completed at our patient's visit: 1. A medication reconciliation and review to ensure accurate knowledge of current/active medications, including asking our patients to inform us about any [id number] medications or herbal remedies/nutritional supplements/alternative remedies. 2. A review to specifically ensure our patients have had annual screening for screening for depression, screening for tobacco use, and screening for unhealthy alcohol use. For concerning screenings had a discussion with the patient, provided patient education, and recommended follow-up with primary care provider when appropriate. If patient noted with a risk of falling, they received education on strength, gait, and balance training to prevent future risk of falling. Portions of this note may have been carried over from the previous visit and updated as appropriate. Please note this office utilizes paper charting in addition to the electronic medical record. A list of current medications, vitals, and PMH is available there as the clinical staff outside of myself do not have access to [employer] charting during the clinic day operations. As part of providing quality comprehensive care the current medications, vitals, and PMH were reviewed in the paper chart. Assessment and Plan Assessment and Plan (1) Sacroiliitis: (2) Lumbar stenosis with neurogenic claudication: (3) Lumbar spondylosis: (4) Failed back syndrome: Assessment and Plan: JENNIFER 44% (5) PHN (postherpetic neuralgia): (6) Chronic prescription opiate use: Assessment and Plan: I feel these medications are improving the patient's quality of life and allow them to tolerate activities of daily living as well as participate in recreational activity.? The patient does not report intolerable side effects. The patient is NOT opioid naive and non-pharmacologic and non-opioid treatment has failed to significantly relieve the patient's pain and improve functionality. The patient has a diagnosis that is related to a somatic or visceral pain etiology. ? ?? I reviewed with the patient the potential risks and side effects with the use of? opioid medications including but not limited to respiratory depression,? sedation, and even . Within the last 12 months I have verified the patient has access to naloxone should? these effects occur. The patient was advised to let? their family know they had Naloxone in case they would need to administer? the medication. I advised the patient to avoid the use of any other? sedation substances including alcohol, THC, and benzodiazepines while? taking opioid medications due to the risk of compounding side effects and? detrimental outcomes. within the last 12 months I have reviewed the COOLING MACHINE OPERATOR, pain treatment agreement and urine drug screen.? ?? A drug screen was completed within the last year, and no aberrancies were noted regarding their use of controlled substances. The patient understands they are subject to the terms and conditions of the pain contract that they have signed. ? ?? I have checked an OARRS report on this patient today and there are no aberrancies noted in the prescribing history.? Plan right SIJ injection under fluoroscopy pt not interested in spinal cord stimulator trial at this time due to transportation issues and commitment continue percocet 5-325mg TID PRN moderate to severe pain continue gabapentin 600mg TID, risks vs benefits reviewed continue transdermal therapeutics cream 6a TID QID PRN for pain secondary to PHN continue PT as tolerated f/u 2 weeks after injection
== END 2024-06-18 12:59 | disposition home or self-care (01) ==
PROVIDERS: PCP Family Medicine; Visit Provider Nurse Practitioner
DX: M46.1 Sacroiliitis, not elsewhere classified (principal); M48.062 Spinal stenosis, lumbar region with neurogenic claudication; M47.816 Spondylosis without myelopathy or radiculopathy, lumbar region; M96.1 Postlaminectomy syndrome, not elsewhere classified; B02.29 Other postherpetic nervous system involvement; Z79.891 Long term (current) use of opiate analgesic
CPT/HCPCS: G0463

== ENCOUNTER 2024-07-14 07:42 | Day surgery (SDC) | payer MEDICARE, SELFPAY ==
[2024-07-14 08:46] VITALS: BP 149/91; PULSE 104; O2SAT 94
[2024-07-14 08:47] VITALS: BP 167/84; PULSE 105; O2SAT 94
[2024-07-14] MEDS: METHYLPREDNISOLONE ACETATE 40 MG/ML VIAL INJ (08:49)
[2024-07-14] MEDS: IOHEXOL 240 MG/ML - 10 ML VIAL 24 MG INJ (08:49)
[2024-07-14] MEDS: BUPIVACAINE HCL 0.25% PF 25 MG/10 ML VIAL 2 ML INJ (08:49)
[2024-07-14] MEDS: LIDOCAINE HCL 2% 400 MG/20 ML MDV INJ (08:49)
--- NOTE | 2024-07-14 08:49 | W.PM.PROCNOT ---
Date of procedure: 07/14/24 Pre-op diagnosis: Pain due to right sacroiliitis Post-op diagnosis: same as pre-op Procedure: Procedure: Right sacroiliac joint injection Medications: Bupivacaine 0.25% 3cc, depomedrol 40mg After informed consent was obtained, the patient was brought to the medical procedure unit and placed in the prone position, when a timeout was completed verifying correct patient, procedure, site, positioning, implant, and/or special equipment.? The skin overlying the area was prepped and draped in standard sterile fashion using alcohol.? A 25-gauge needle was inserted towards the right sacroiliac joint under direct fluoroscopic imaging.? Needle tip was advanced until the joint was encountered.? We instilled a total of 2 mL of solution.? Postoperatively needles were removed.? The patient tolerated the procedure well without complication.? The patient reported reduction in pain symptoms postoperatively. Anesthesia: Local Surgeon: Drake Delatorre Pathology: none sent Condition: stable Disposition: no change
== END 2024-07-14 08:55 | disposition home or self-care (01) ==
PROVIDERS: PCP Family Medicine; Visit Provider Anesthesiology
DX: M46.1 Sacroiliitis, not elsewhere classified (principal); M25.532 Pain in left wrist
CPT/HCPCS: 27096; 73110; J0665; J1010; Q9966

== ENCOUNTER 2024-07-14 09:05 | Outpatient (OUT) | payer MEDICARE, SELFPAY ==
--- NOTE | 2024-07-14 09:17 | XR_ITS ---
[facility] [place] [id number] Patient Name: AARON JJ MRN: [id number] date: 1945 Sex: F Assigned Patient Location: [facility] Current Patient Location: [facility] Accession/Order Number: [id number] Exam Date: 07/14/2024 16:43 Report Date: 07/14/2024 16:44 At the request of: SHARON CASTRO MD Procedure: XR wrist LT min 3V LEFT WRIST - 3 views CLINICAL HISTORY: Pain Left Wrist, Fall COMPARISON: None FINDINGS: No focal soft tissue abnormality. Bones are grossly demineralized. Chondrocalcinosis involving the TFCC. No acute bony process is noted. Severe degenerative changes of the CMC joint of the thumb. No bony erosions. XR/XR wrist LT min 3V IMPRESSION: SEVERE DEGENERATIVE CHANGES OF THE CMC JOINT OF THE THUMB. NO ACUTE BONY PROCESS IS SEEN. Impression dictated by: Ray Caraballo Jr., D.O.07/14/2024 4:44 PM Dictation Location: [facility] Electronically authenticated by: [id number] Y Date: 07/14/2024 16:44
--- OUTSIDE RECORDS SUMMARY | 2024-07-14 09:33 | XMS_ITS | CCD ---
Author Organization [facility] Care Team Providers Care Aluminum Siding Installer Name Role Phone Unavailable Primary Care Provider [...] DR JEREMIAH Poole Primary Care Unavailable SIMONA .ANNA Consulting Unavailable ANIRUDH BARAHONA Consulting Unavailable [...] ., NARTAMIKA Attending Chelly vailable LAKSHMIPATHY ., NARTAMIKA Admitting [...] Unavailable Derek, Jeremiah Unavailable Ray Fofana Unavailable CHRISTIANO MALDONADO Attending [...] Admit Provider Rosendo Law MD Attending Provider [phone] Ashli Bartlett MD Other Provider Ray Fofana MD Other Provider Pamella Avitia APRN Other Provider Johnnie Jean DO Other Provider Sung Craig MD Other Provider Jeremiah Reed MD Primary Care Provider Elder Garcia Admitting Unavailable Elder Garcia Attending Unavailable Jeremiah Reed Primary Care Unavailable Jeremiah Reed Primary Care Unavailable Ani, Rosendo P Admitting Unavailable Law, Rosendo P Attending Unavailable Dhruv, Ashli Consulting Unavailable Brigido, Ray Consulting Unavailable Turelba, Pamella Consulting Unavailable Johnnie Jean Jr Consulting UnavailSung Ornelas Consulting Unavaila ble COOK, Cayden P Admitting Unavailable COOK, Cayden P Attending Unavailable COOK, Cayden P Referring Unavailable COOK, Cayden P Admitting Unavailable COOK, Cayden P Attending Unavailable COOK, Cayden P Referring Unavailable MIAH, BRENDA E Attending Unavailable MIAH, BRENDA E Admitting Unavailable MIAH, BRENDA E Attending Unavailable MIAH, BRENDA E Admitting Unavailable MIAH, BRENDA E Attending Unavailable MIAH, BRENDA E Referring Unavailable MIAH, BRENDA E Attending Unavailable MIAH, BRENDA E Attending Unavailable MIAH, BRENDA E Attending Unavailable Alexandro CARMONA Attending Unavailable MIAH, BRENDA E Attending Unavailable MIAH, BRENDA E Attending Unavailable MIAH, BRENDA E Attending Unavailable MIAH, BRENDA E Attending Unavailable MIAH, BRENDA E Attending Unavailable MIAH, BRENDA E Attending Unavailable Jeremiah Reed MD Primary Care Provider Allergies Allergy Classification Reported Allergen(s) Allergy Type Date of Onset Reaction(s) Facility (7 sources) patient allergy list reviewed by nurse or physicia Propensity to adverse reactions 9 Comment:Done AquaHydrate Other (7 sources) Allergies Reconciled Propensity to adverse reactions Unknown AquaHydrate Other (2 sources) Other Allergy to substance 0 [facility] (1 source) Adhesive Tape Drug allergy (disorder) 4 [facility] Repository (2 sources) Adhesive Tape; Translations: [Tape] Allergy to substance Eruption of skin (disorder) [facility] Medications Current Medications Medication Drug Class(es) Dates Sig (Normalized) Sig (Original) 8 hr acetaminophen 650 mg extended release oral tablet (14 sources) Start: 03-12-2024 take 1 tablet by [...] Start: 04-13-2023 take 2 tablets by mo [facility] every six hours as needed for pain [...] (20 sources) Opioid Agonist Start: 03-12-2024 End: 04-28-2024 take 1 tablet by mouth three times daily as needed for pain Oxycodone-Acetaminophen 5-325 mg tablet Active 1 TAB PO Three times daily as needed for pain 45 April 28, 2024 Start: 03-07-2024 End: 03-07-2024 1 tablet, oral, Once as need ed, severe pain - pain scale 7-10, Starting on Sun03/07/24 at 0148, For 1 dose, Look-alike/sound-alike medication - verify indication for use. 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 [id number] 200 actuat albuterol 0.09 mg/actuat metered dose inhaler (11 sources) beta2-Adrenergic Agonist Start: 03-12-2024 Albuterol Sulfate [...] (20 sources) Dihydropyridine Calcium Channel Harlan Start: 05-15-2024 take 1 tablet by mouth once daily Amlodipine 5 mg tablet Active 0 .ROUTE .COMPLEX 90 May 15, 2024 1:11pm TAKE 1 TABLET BY MOUTH EVERY DAY Start: 03-31-2024 End: 05-15-2024 take 1 tablet by mouth once daily Amlodipine 5 mg tablet Discontinued 10 MG PO Daily March 31, 2024 12:00am May 15, 2024 1:12pm TAKE 1 TABLET BY MOUTH EVERY DAY FOR 30 DAYS Start: 03-02-2024 take 5 mg by mouth once daily 5 mg, oral, Daily, First dose [...] 2:23pm Start: 02-11-2019 take 2 tablets by [facility] once daily amLODIPine 2.5 mg Tab 5 mg = 2 tab(s), Oral, Daily, # 90 tab(s), Refills(s) 0 Start Date: 02/11/19 Status: Ordered take 1 tablet by [facility] every twenty-four hours amLODIPine Besylate 5 MG 1 tablet Orally Once a day for 30 days Active Ocuvite (14 sources) Vitamin C Start: 02-03-2021 Ocuvite Oral, Daily, Refill(s) 0 Start Date: 02/03/21 Status: Ordered aspirin 81 mg delayed release oral tablet (20 sources) Platelet Aggregation Inhibitor, Nonsteroidal Anti-inflammatory Drug Start: 04-13-2023 take 81 mg by mouth once daily 81 mg, oral, Daily, First dose on 03/02/24 at 0900, Do not crush or chew. Baclofen (20 sources) gamma-Aminobutyric Acid-ergic Agonist Start: 05-27-2024 baclofen Oral, TID Start Date: 05/27/24 Status: Ordered Start: 03-31-2024 take 1 tablet by [facility] twice daily Baclofen 10 mg tablet Active 10 MG PO Twice daily March 31, 2024 12:00am Start: 03-12-2024 take 2 tablets by [facility] three times daily Baclofen 5 mg tablet Active 10 MG PO Three times daily March 11, 2024 11:00pm Start: 03-12-2024 take 1 tablet by [facility] twice daily Baclofen 5 mg tablet Active [...] daily as needed for Muscle Spasm 90 30 May 04, 2020 12:00am March 12, 2024 10:18am Start: 04-09-2020 End: 05-04-2020 take 1 tablet by mouth twice daily Baclofen 10 mg Tablet Discontinued 10 MG PO Twice daily April 09, 2020 12:00am May 04, 2020 9:36am take 0.5 tablet by m outh three times daily as needed for muscle spasms baclofen (LIORESAL) 10 mg tablet Take 0.5 tablets (5 mg total) by mouth 3 (three) times a day as needed for muscle spasms. Active busPIRone hydrochloride 10 m g oral tablet (20 sources) Start: 05-27-2024 busPIRone 10 m g Tab mg tab(s), Oral Start Date: 05/27/24 Status: Ordered Start: 03-31-2024 take 1 tablet by buffy th twice daily Buspirone 10 mg tablet Active [...] Active calcium carbonate 1500 mg oral tablet (8 sources) Start: 03-12-2024 take 1 tablet by mouth once daily Calcium Carbonate 600 mg calcium (1,500 mg) tablet Active 600 MG PO Daily March 11, 2024 11:00pm Start: 03-02-2024 500 mg, oral, Daily with breakfast, First dose on 03/02/24 at 0800, Ordered as elemental calcium. 500 mg elemental calcium = 1250 mg calcium carbonate take 1 tablet by buffy once daily at breakfast calcium carbonate (OS-RAYMON) 600 mg elemental (1,500 mg) tablet Take 1 tablet (600 mg total) by mouth daily with breakfast. Active calcium citrate 950 mg oral tablet (12 sources) Start: 08-28-2023 calcium (as ca lcium citrate) 200 mg oral tablet 950 mg = 1 tab(s), Oral, BID, Refills(s) 0 Start Date: 08/28/23 Status: Ordered Start: 06-21-2022 take 1 mg by mouth twice daily calcium (as calcium citrate) 200 mg oral tablet mg tab(s), Oral, BID, Refills(s) 0 Start Date: 06/21/22 Status: Ordered cholecalciferol 0.05 mg oral capsule (12 sources) Vitamin D Start: 03-12-2024 take 1 [...] 12, 2024 10:18am take 1 capsule by mo [facility] in the morning cholecalciferol, vitamin D3, 2,000 [...] mg / methylsulfonylmethane 200 mg oral tablet (4 sources) Star t: 10 take 1 tablet by mouth twice daily Glucosamine Zfv-Yfopwirjmp-Byw 500-400-200 mg tablet Active 1 TAB PO Twice daily March 11, 2024 11:00pm ciprofloxacin 500 mg oral tablet (3 sources) Quinolone Antimicrobial Star t: 0512-31 Cipro 500 mg Tab 500 mg = 1 tab(s), Oral, BID, Take twice daily x5 days starting the day prior to the procedure, # 10 tab(s), Refills(s) 0, Pharmacy: [facility]/pharmacy #[id number], 165, cm, 09/26/23 15:44:00 EDT, Height/Length Dosing, 91, kg, 09/26/23 15:44:00 EDT, Weight Dosing Start Date: 10/09/23 Status: Ordered Start: 06-11-2023 Cipro 500 mg T ab See Instructions, Take 1 tab day prior to procedure and 1 tab day of procdure - afterwards, # 2 tab(s), Refills(s) 0, [id number], cm, 06/05/23 12:57:00 EST, Height/Length Dosing, 87, kg, 06/05/23 12:57:00 EST, Weight Dosing Start Date: 06/11/23 Status: Ordered diclofenac sodium 0.01 mg/mg topical gel (6 sources) Nonsteroidal Anti-inflammatory Drug Start: 05-04-2020 End: 03-12-2024 2 g, topical, 3 times daily PRN, pain, Starting on 03/02/24 at 1941, Use dosing card to measure dose. Apply to shoulder. Start: 05-04-2020 apply 2 g topically three times daily Diclofenac Sodium Active 2 GM TOPICAL Three times daily May 04, 2020 1:00am gabapentin 300 mg oral capsule (20 sources) Anti-epileptic Agent Start: 05-22-2024 take 2 capsules by mouth three times daily Gabapentin 300 mg capsule Active 600 MG PO Three times daily May 22, 2024 1:45pm Start: 03-31-2024 take 2 capsules by m outh three times daily Gabapentin 300 mg capsule Active 600 MG PO Three times daily March 31, 2024 12:00am Start: 04-13-2023 End: 05-22-2024 take 1 capsule by mouth three times daily gabapentin 300 mg Cap 300 mg = 1 cap(s), Oral, TID, Refills(s) 0 Start Date: 04/13/23 Status: Ordered Start: 02-11-2019 End: 03-12-2024 take 1 tablet [...] for 0 duration 5 years *Reorder from [facility] for eRx and Interaction Alerts* Nov, Active [...] very 8 hours scheduled, First dose on Sun03/02/24 at 0045, Notify prescriber if INR greater [...] for use. melatonin 5 mg oral tablet (15 sources) Start: 03-02-2024 take 5 mg by mouth once daily 5 mg, oral, Nightly, First dose on 03/02/24 at 2330 Start: 02-03-2021 melatonin Once a day (at bedtime), Refills(s) 0 Start Date: 02/03/21 Status: Ordered 24 hr mirabegron 50 mg extended release oral tablet (3 sources) beta3-Adrenergic Agonist Start: 08-28-2023 End: 08-22-2024 take 1 tablet by mouth once daily Myrbetriq 50 mg oral tablet, extended release 50 mg = 1 tab(s), Oral, Daily, X 30 day(s), # 30 tab(s), Refills(s) 11, Pharmacy: [facility]/pharmacy #[id number], 165, cm, 08/28/23 15:03:00 EDT, Height/Length Dosing, 90, kg, 08/28/23 15:03:00 EDT, Weight Dosing Start Date: 08/28/23 Stop Date: 08/22/24 Status: Ordered Start: 08-28-2023 End: 08-22-2024 take 1 tablet by mouth every twenty-four hours Myrbetriq 50 MG 24 hr tablet Take 50 mg by mouth 08/28/2023 08/22/2024 Active nortriptyline 25 mg oral capsule (20 sources) Tricyclic Antidepressant Start: 03-02-2024 take 25 mg by mouth once daily 25 mg, oral, Nightly, First dose on 03/02/24 at 0200, Look-alike/sound-alike medication - verify indication for use. Start: 02-11-2019 End: 05-04-2020 take 1 capsule by mouth at bedtime nortriptyline 25 mg Cap 25 mg = 1 cap(s), Oral, Bedtime, Refills(s) 0 Start Date: 02/11/19 Status: Ordered omeprazole 40 mg delayed release oral capsule (20 sources) Proton Pump Inhibitor Start: 11-05-2023 End: 05-12-2024 Omeprazole 40 mg capsule,delayed release(DR/EC) Active 0 .ROUTE .COMPLEX May 12, 2024 4:43pm TAKE 1 CAPSULE BY MOUTH EVERY DAY [...] Administer over 2-5 minutes. polyethylene glycol 3350 79995 mg powder for oral solution (4 sources) Osmotic Laxative Start: 03-23-2024 Polyethylene Glycol [...] in imaging, line care, MRI, Starting on [place] 03/02/24 at 1644, For 1 dose Start: 03-02-2024 End: 03-03-2024 take 75 mL intravenously every hour 75 mL/hr, intravenous, Continuous, Starting on [place] 03/02/24 at 0200, For 1 day Start: 03-02-2024 3 mL, intraven ous, Every 12 hours scheduled, First dose on [place] 03/02/24 at 0045 Start: 03-02-2024 3 mL, intraven ous, As needed, line care, before and after each intermittent use, Starting on Sun03/02/24 at 0031 Start: 03-02-2024 take 25 mL intraveno usly every hour as needed 25 mL, intravenous, at 100 mL/hr, Administer over 15 Minutes, As needed, line care, line care after IVPB administration, Starting on [place] 03/02/24 at 0031 solifenacin succinate 10 mg oral tablet (11 sources) Cholinergic Muscarinic Antagonist Start: 06-21-2022 End: 06-16-2023 take 1 tablet by mouth once daily Vesicare 10 mg Tab 10 mg = 1 tab(s), Oral, Daily, X 30 day(s), # 30 tab(s), Refills(s) 11, Pharmacy: [id number], 165, cm, 06/21/22 14:53:00 EST, Height/Length Dosing, 87, kg, 06/21/22 14:53:00 EST, Weight Dosing Start Date: 06/21/22 Stop Date: 06/16/23 Status: Ordered trospium chloride 20 mg oral tablet (11 sources) Cholinergic Muscarinic Antagonist Start: 05-27-2024 take 1 tablet by mouth at bedtime trospium 20 mg oral tablet 20 mg = 1 tab(s), Oral, Bedtime, # 90 tab(s), Refills(s) 3, Pharmacy: [facility]/pharmacy #[id number], 165, cm, 05/27/24 11:39:00 EST, Height/Length Dosing, 91, kg, 05/27/24 11:39:00 EST, Weight Dosing Start Date: 05/27/24 Status: Ordered Start: 01-24-2024 take 1 tablet by buffy th twice daily Trospium 20 mg tablet Active 20 MG PO Twice daily March 11, 2024 11:00pm administer on an empty stomach Tudorza Pressair 400mcg/actuat (7 sources) Start: 04-12-2022 take 1 puff(s) by inhalation twice daily Tudorza Pressair 400mcg/actuat Tudorza Pressair 400mcg/actuat, 1 (one) Puff BID # 1, 04/12/2022, Ref. x12. Active inhalation BID *Pick strength-form from [employer] for eRX* Mar, Active Start: 04-12-2022 take 1 puff(s) by in halation twice daily Tudorza Pressair 400mcg/actuat Tudorza Pressair 400mcg/actuat, 1 (one) Puff BID # 1, 04/12/2022, Ref. x12. Active inhalation BID for 30 *Pick strength-form from [employer] for eRX* Mar, Active Vibegron (Gemtesa) 75 [...] day(s), # 30 tab(s), Refills(s) 11, Pharmacy: [facility]/pharmacy #[id number], 165, cm, 08/28/23 15:03:00 EDT, Height/Length Dosing, 90, kg, 08/28/23 15:03:00 EDT, Weight Dosing Start Date: 08/28/23 Stop Date: 08/22/24 Status: Ordered Vision Formula (7 sources) Vision Formula A ctive Completed/Discontinued Medications Medication Drug Class(es) Dates Sig (Normalized) Sig (Original) 10 ml acyclovir 50 mg/ml injection (8 sources) Herpesvirus Nucleoside Analog DNA Polymerase Inhibitor, [...] Active alendronic acid 70 mg oral tablet (5 sources) Bisphosphonate Start: 04-09-2020 End: 05-04-2020 take 1 tablet by mouth every week Alendronate 70 mg tablet Discontinued 70 MG PO Q7D April 09, 2020 12:00am May 04, 2020 9:36am C,E,Zinc,Copper 94-[id number] (Ocuvite Adult 50 Plus) 250-5-1 mg Capsule (10 sources) Start: 05-04-2020 End: 03-12-2024 C,E,Zinc,Copper 49-[id number] (Ocuvite Adult 50 Plus) 250-5-1 mg Capsule Discontinued 250 CAP PO Daily May 04, 2020 9:23am March 12, 2024 10:17am Start: 05-04-2020 C,E,Zinc,Coppe r 66-[id number] (Ocuvite Adult 50 Plus) 250-5-1 mg Capsule Active 250 CAP PO Daily May 04, 2020 10:23am Start: 04-10-2020 End: 05-04-2020 C,E,Zinc,Copper 20-[id number] ut (Ocuvite Adult 50 Plus) 250-5-1 mg Capsule Discontinued 250 CAP PO Daily April 10, 2020 12:00am May 04, 2020 9:23am Start: 04-10-2020 End: 05-04-2020 C,E,Zinc,Copper 07-[id number]-D ut (Ocuvite Adult 50 Plus) 250-5-1 mg Capsule Discontinued 250 CAP PO Daily April 10, 2020 1:00am May 04, 2020 10:23am cephalexin 500 mg oral capsule (9 sources) Cephalosporin Antibacterial Start: 03-23-2024 End: 04-02-2024 take 1 capsule by mouth twice daily Cephalexin 500 mg capsule Discontinued 500 MG PO Twice daily March 23, 2024 12:00am April 02, 2024 10:48am Start: 04-13-2020 End: 05-04-2020 take 1 capsule by mouth twice daily Cephalexin 500 mg capsule Discontinued 500 MG PO Twice daily 4 2 April 13, 2020 12:00am May 04, 2020 9:36am dexamethasone 1 mg/ml / tobramycin 3 mg/ml ophthalmic suspension (7 sources) Aminoglycoside Antibacterial, Corticosteroid Start: 03-31-2024 End: 05-22-2024 take 1 drop(s) into the eye(s) every six hours Tobramycin-Dexamethasone 0.3-0.1 % drops,suspension Discontinued 1 DROPS EYE-BOTH Q6H March 31, 2024 12:00am May 22, 2024 1:44pm Start: 03-02-2024 take 1 drop(s) into the eye(s) twice daily 1 drop, left eye, 2 times daily, First dose on 03/02/24 at 0215, Look-alike/sound-alike medication - verify indication for use. tobramycin-dexAM ETHasone (TOBRADEX ST) 0.3-0.05 % drops,suspension Instill to eye. Active diphenhydrAMINE hydrochloride 25 mg / naproxen sodium 220 mg oral tablet (5 sources) Histamine-1 Receptor Antagonist, Nonsteroidal Anti-inflammatory Drug Start: 04-10-2020 End: 04-13-2020 take 1 tablet by mouth at bedtime as needed Naproxen-Diphenhydramine (Aleve Pm) 220-25 mg Tablet Discontinued 1 TAB PO Bedtime as needed for Insomnia April 10, 2020 12:00am April 13, 2020 1:35pm ergocalciferol 1.25 mg oral capsule (5 sources) Provitamin D2 Compound Start: 05-04-2020 End: 03-12-2024 Ergocalciferol (Vitamin D2) 1,250 mcg (50,000 unit) Capsule Discontinued 1250 MCG PO Fr@0900 5 30 May 04, 2020 12:00am March 12, 2024 [...] meal Start: 08-28-2023 take 1 capsule by [facility] twice daily glucosamine 500 mg Cap 500 [...] day Active ibuprofen 200 mg oral tablet (5 sources) Nonsteroidal Anti-inflammatory Drug Start: 04-10-2020 End: 04-13-2020 take 1 tablet by mouth every six hours as needed Ibuprofen 200 mg Tablet Discontinued 200 MG PO Q6H as needed for Insomnia April 10, 2020 12:00am April 13, 2020 1:35pm meloxicam 15 mg oral tablet (20 sources) Nonsteroidal Anti-inflammatory Drug Start: 03-31-2024 End: 05-22-2024 take 7.5 mg by mouth once daily Meloxicam 15 mg tablet Discontinued 7.5 MG PO Daily March 31, 2024 12:00am May 22, 2024 1:44pm Start: 04-12-2022 meloxicam 15 m g Tab Refills(s) 0 Start Date: 09/26/23 Status: Ordered methylPREDNISolone 4 mg oral tablet (8 sources) Corticosteroid Start: 04-09-2020 End: 04-10-2020 Methylprednisolone 4 mg Tablets,Dose Pack Discontinued 0 MG PO per package directions April 09, 2020 12:00am April 10, 2020 12:07am Start: 04-09-2020 End: 04-10-2020 Methylprednisolone Discontin ued 0 MG PO per package directions April 09, 2020 1:00am April 10, 2020 1:07am nabumetone 750 mg oral tablet (5 sources) Nonsteroidal Anti-inflammatory Drug Start: 04-09-2020 End: 04-10-2020 take 1 tablet by mouth every twelve hours as needed for pain Nabumetone 750 mg Tablet Discontinued 750 MG PO Q12H as needed for Pain April 09, 2020 12:00am April 10, 2020 12:08am oxyCODONE hydrochloride 5 mg oral tablet (5 sources) Opioid Agonist Start: 05-04-2020 End: 03-12-2024 take 1 tablet by mouth every four hours as needed for pain Oxycodone 5 mg Tablet Discontinued 5 MG PO Every 4 hours as needed for Pain Scale 6 - 10 40 7 May 04, 2020 March 12, 2024 10:17am Tobramycin-Dexameth asone 0.3-0.05 % drops,suspension (7 sources) Start: 03-25-2024 End: 03-31-2024 take 1 [...] HERNIA W/O OBST/GANGRENE] Onset: Episodic Abdominal pain (14 sources) Abdominal tenderness 02-03-2021 Episodic Administrative/social admission (5 sources) Other reduced mobility; Translations: [Impaired mobility and activities of daily living] 04-25-2023 Episodic Comment on above: Problem List clean-u p per request of Phys. EHR Cmte Anxiety disorders (8 sources) Anxiety; Translations: [Anxiety] Onset: 3 Chronic Cancer of ovary (5 sources) Malignant tumor of ovary; Translations: [Malignant neoplasm of unspecified ovary] 04-25-2023 Chronic Comment on above: rightProblem List cl margaret-up per request of Phys. EHR Cmte Chronic kidney disease (19 sources) Chronic kidney disease stage 3; Translations: [Chronic kidney disease, stage 3 (moderate)] Onset: 3 03-12-2024 Chronic Chronic kidney disease (1 source) [...] UNS] Onset: 2 Chronic Diverticulosis and diverticulitis (5 sources) Diverticular disease; Translations: [Diverticulosis of intestine, part unspecified, without perforation or abscess without bleeding] 04-25-2023 Chronic Comment on above: Problem List clean-u p per request of Phys. [facility] Epilepsy; convulsions (4 sources) Seizure; Translations: [Unspecified convulsions] Onset: 4 05-23-2024 Episodic Esophageal disorders (6 sources) Gastroesophageal reflux disease without esophagitis; Translations: [Gastro-esophageal reflux disease without esophagitis] Onset: 3 Chronic Comment on above: Problem List clean-u p per request of Phys. EHR Cmte Essential hypertension (20 sources) Essential (primary) hypertension; Translations: [Hypertensive disorder] Onset: 2 Chronic Comment on above: Problem List clean-u p per request of Phys. [facility] Fluid and electrolyte disorders (7 sources) Dehydration; Translations: [Dehydration] Onset: 4 03-31-2024 [...] caused by tuberculosis or sexually transmitted disease) (18 sources) Herpes zoster with meningitis; Translations: [Zoster meningitis] Onset: 4 03-12-2024 Episodic Mood disorders (1 source) Depressive disorder; [...] OSTEOARTHRITIS UNS SITE] Onset: 2 Chronic Osteoporosis (5 sources) Osteoporosis; Translations: [Age-related osteoporosis without current pathological fracture] 04-25-2023 Chronic Comment on above: Problem List clean-u p per request of Phys. EHR Cmte Other aftercare (1 source) Long-term current use of drug therapy; Translations: [Other residential (current) drug therapy] Onset: 3 Episodic Other connective tissue disease (1 source) Other muscle spasm; Translations: [OTHER MUSCLE SPASM] Onset: 3 Episodic Other connective tissue disease (5 sources) Pain in lower limb; Translations: [Pain in left leg] 04-25-2023 Episodic Comment on above: Problem List clean-u p per request of Phys. EHR Cmte Other connective tissue disease (1 source) Pain of toes of bilateral feet; Translations: [Pain in right toe(s)] 01-20-2024 Episodic Other diseases of bladder and urethra (9 sources) Detrusor overactivity; Translations: [Overactive bladder] Onset: 3 Chronic Other diseases of bladder and urethra (14 sources) Overactive bladder 03-31-2021 Chronic Other diseases of bladder and urethra (4 sources) Male urethral stricture; Translations: [Unspecified urethral stricture, male, unspecified site] Onset: 3 Episodic Other diseases of bladder and urethra (14 sources) Traumatic urethral stricture 02-03-2021 Episodic Other diseases of bladder and urethra (16 sources) Urethral stricture; Translations: [Other urethral stricture, female] Onset: 4 02-11-2019 Episodic Other diseases of kidney and ureters (7 sources) Hyperparathyroidism due to renal insufficiency; Translations: [Secondary hyperparathyroidism of renal origin] Chronic Other endocrine disorders (7 sources) Primary hyperparathyroidism; Translations: [Primary hyperparathyroidism] Chronic Other endocrine disorders (7 sources) Hyperparathyroidism; Translations: [Hyperparathyroidism, unspecified] Chronic Other fractures (5 sources) Multiple pelvic fractures; Translations: [Multiple fractures of pelvis without disruption of pelvic ring, initial encounter for closed fracture] 04-25-2023 Episodic Comment on above: Problem List clean-u p per request of Phys. EHR Cmte Other fractures (5 sources) Multiple closed fractures of pelvis with disruption of pelvic beaver; Translations: [Multiple fractures of pelvis with stable disruption of pelvic ring, initial encounter for closed fracture] 04-25-2023 Episodic Comment on above: Problem List clean-u p per request of Phys. EHR Cmte Other fractures (5 sources) Closed fracture sacrum; Translations: [Unspecified fracture of sacrum, initial encounter for closed fracture] 04-25-2023 Episodic Comment on above: Problem List clean-u p per request of Phys. EHR Cmte Other gastrointestinal disorders (4 sources) Constipation; Translations: [Constipation, unspecified] 03-23-2024 Episodic Other injuries and conditions due to external causes (5 sources) Fracture pain; Translations: [Other injury of [...] Onset: 3 Chronic Other nervous system disorders (5 sources) Chronic pain; Translations: [Other chronic pain] 04-25-2023 Chronic Comment on above: Problem List clean-u p per request of Phys. EHR Cmte Other nervous system disorders (5 sources) Disorder of brain; Translations: [Encephalopathy, unspecified] 04-14-2020 Chronic Other nervous system disorders (3 sources) Metabolic encephalopathy; Translations: [Metabolic encephalopathy] 03-31-2024 Chronic Other nervous system disorders (4 sources) Metabolic encephalopathy; Translations: [Metabolic encephalopathy] Onset: 4 03-31-2024 Chronic Other nervous system disorders (5 sources) Toxic metabolic encephalopathy; Translations: [Toxic metabolic [...] Translations: [Chronic pain] Episodic Residual codes; unclassified (3 sources) Altered mental status; Translations: [Altered mental status, unspecified] Onset: 3 Episodic Residual codes; unclassified (5 sources) Tobacco user; Translations: [Tobacco use] 04-25-2023 Episodic Comment on above: Problem List clean-u p per request of Phys. EHR Cmte Residual codes; unclassified (5 sources) Patient encounter status; Translations: [Encounter for prophylactic measures, unspecified] 04-25-2023 Episodic Comment on above: Problem List clean-u p per request of Phys. EHR Cmte Residual codes; unclassified (3 sources) Altered mental status, unspecified; Translations: [Altered mental status] Onset: 4 04-03-2024 Episodic Secondary malignancies (6 sources) Secondary malignant neoplasm of bone; Translations: [Secondary malignant neoplasm of bone] 04-25-2023 Chronic Comment on above: Problem List clean-u p per request of Phys. EHR Cmte Outside Source Comme nt: Comment on above: Problem List clean-up per request of Phys. EHR Cmte Spondylosis; [...] initial encounter] Onset: 3 Episodic Substance-related disorders (14 sources) Cigarette smoker 10-21-2019 Chronic Thyroid disorders [...] EXPOS COVID-19] Onset: 2 Urinary tract infections (14 sources) Chronic cystitis 10-21-2019 Chronic Urinary tract infections (20 sources) Acute urinary tract infection; Translations: [Urinary tract infectious disease] Onset: 4 02-03-2021 Episodic Comment on above: Problem List clean-u p per request of Phys. EHR Cmte Past or Other Problems Problem Classification Problem Date Documented Da te Episodic/Chronic Acute and unspecified renal failure (7 sources) Acute kidney failure, unspecified; Translations: [Acute renal failure syndrome] Onset: 11-24-2021 04-25-2023 Episodic Comment on above: Problem List clean-u p per request of Phys. EHR Cmte Outside Source Comme nt: Comment on above: Problem List clean-up per request of Phys. 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] 03-07-2024 Episodic Inflammation; infection of eye (except that caused by tuberculosis or sexually transmitteddisease) (2 sources) Herpes zoster conjunctivitis; Translations: [Zoster conjunctivitis] 03-10-2024 Episodic Lymphadenitis (1 source) Localized enlarged lymph nodes; Translations: [LOCALIZED ENLARGED LYMPH NODES] Onset: 02-25-2022 Episodic Mood disorders (2 sources) Mood disorders Onset: 03-02-2024 03-02-2024 Other aftercare (1 source) Other residential (current) drug therapy; Translations: [OTH INTERMEDIATE CURRENT DRUG THERAPY] Onset: 01-09-2022 Episodic Other [...] OF NICOTINE DEPEND] Onset: 01-09-2022 Episodic Unclassified (14 sources) Finding of sensation of bladder 02-03-2021 Unclassified (1 source) LOW BACK PAIN, UNSPECIFIED; Translations: [LOW BACK PAIN, UNSPECIFIED] Onset: 05-11-2022 Results Test Name Value Interpretation Reference Range Facility Ambulatory Visit Summaryon 0 05-27-2024 Ambulatory Visit Summary Ambulatory Visit Summary AARON LEWIS :1945 Visit Date:05/27/2024 Ambulatory Visit Instructions Your Diagnosis OAB (overactive bladder) Incomplete bladder emptying Other urethral stricture, female Recurrent UTI Your Care Team Attending Physician - BRENDA MARIN PA-C Primary Care Physician - JEREMIAH REED MD This Is Your Medications List trospium (trospium 20 mg oral tablet) Contact prescribing physician if questions or concerns acetaminophen-oxycodone (acetaminophen-oxycodone 325 mg-2.5 mg oral tablet) amlodipine (amLODIPine 2.5 mg Tab) aspirin (aspirin 81 mg Oral EC Tab) baclofen busPIRone (busPIRone 10 mg Tab) calcium citrate (calcium (as calcium citrate) 200 mg oral tablet) gabapentin (gabapentin 300 mg Cap) glucosamine (glucosamine 500 mg Cap) melatonin multivitamin with minerals (Ocuvite) nortriptyline (nortriptyline 25 mg Cap) omeprazole (omeprazole 40 mg Cap-DR) Procedures Performed Cystoscopy (12/03/2023), Cystourethroscopy with dilation of urethral stricture (07/23/2023), Cystourethroscopy with dilation of urethral stricture (06/16/2016), Appendectomy, Biopsy of breast, Hysterectomy. Discharge Vitals Heart Rate (Peripheral) 103 Respiratory Rate 20 Blood Pressure 137/85 Height 165 cm Height 65 in Weight 91 kg Weight 200.62 lb BMI 33.43 What to do next Scheduled Follow-Up Appointments Sunday 1:20 PM EDT With: BRENDA MARIN PA-C Where: [facility] [address] [place] [address] [place] [address]- You Need to Schedule the Following Appointments Follow Up with BRENDA MARIN PA-C, CASSIE When: Within 6 weeks Where: [address] [facility] [place] [address] Business (1) Medications What How Much When Instructions Unchanged trospium (trospium 20 mg oral tablet) 1 Tablets By Mouth At bedtime Pickup at [facility]/pharmacy #[id number] Unchanged acetaminophen-oxycodone (acetaminophen-oxycodone 325 mg-2.5 mg oral [...] prescribing physician if questions or concerns Unchanged baclofen By Mouth 3 times a day Contact prescribing physician if questions or concerns Unchanged busPIRone (busPIRone 10 mg Tab) By Mouth Contact prescribing physician if questions or concerns [...] Contact prescribing physician if questions or concerns Pharmacy Information [facility]/pharmacy #[id number]: [address], [place] [id number] [phone] Allergies Tape (Rash) Problems Ongoing - Any problem that you are currently receiving treatment for. Acute kidney injury Chronic cystitis Chronic kidney disease stage 3 Cigarette smoker Dorsalgia Incomplete bladder emptying Metastatic malignant neoplasm to bone OAB (overactive bladder) Other urethral stricture, female Recurrent UTI Retention of urine Seizure Historical - Any problem that you are [...] choosing us for your care. Education Materials Overactive Bladder, Adult Overactive bladder is a condition in which a person has a sudden and frequent need to urinate. A person might also leak urine if he or she cannot get to the bathroom fast enough (urinary incontinence). Sometimes, symptoms can interfere with work or social activities. What are th (more content not included)... Normal [facility] Urology Office/Clinic Noteon 05-27-2024 Urology Office/Clinic Note Urology Office/Clinic Note Chief Complaint F/U HPI Staff 79 year old female patient here for a follow up. Previous Dx: OAB, urethral stricture and recurrent UTI. S/P Botox done by [facility] 12/03/23. Pt [place] [facility] [place] Pt had nath as of 04/02/24. Pt. states Nath was removed about 2 months ago Urine cx 03/31/24: negative, has a positive urine cx 03/23/24 >100,000 cfu/ml (was given keflex) Seen in [facility] ER 04/22/24 acute kidney injury. Pt, would like a 90 day refill for Trospium Dysuria: no Incomplete bladder emptying: yes, PVR 145mL Hematuria: no Frequency: 1-2 hours Urgency: moderate urge Nocturia: 3x's Stream: good stream Post void dripping: no Wearing pads/ Depends: no Urge incontinence: no Stress incontinence: no Incontinence without Sensory Awareness: no Abdominal pain: no Flank pain: no Review of Systems PHQ Score Initial Depression Screen Score: 1 SCORE denies fever. Physical Exam Vitals & Measurements HR: 103(Peripheral) RR: 20 BP: 137/85 HT: 65 in HT: 165 cm WT: 91 kg WT: 200.62 lb BMI: 33.43 nontoxic Assessment/Plan 1. OAB (overactive bladder) (N32.81: Overactive bladder) S/p Botox 100u 12/03/23 by [facility]. Has failed Ditropan, Tolterodine, and Vesicare. Gemtesa/Myrbetriq were cost prohibitive. Drinks 2-3 cans Diet Pepsi daily, unwilling/unable to change this. 12/25/23: States she has not had significant/noticeable improvement post-op botox. Educated pt peak efficacy varies between pts but can typically be expected to start to improve within the next few wks and peak around 90 days post op. PVR 39ml. 01/24/24: Still no improvement. Most bothersome sx nocturia. I started Trospium 20mg qhs. Pt continues on the Tropsium qhs. Says it's working well. She is pleased overall w combination of Botox + Trospium. Needs refills. -F/u in October/November as that will be 1 yr from Botox. Ordered: Complex E&M Add on G2211 E&M of Est. Patient Moderate 30-39 Min 69709 2. Incomplete bladder emptying (R33.9: Retention of urine, unspecified) Ov 03/04/24 cancelled. Pt ended up in [facility] for rehab. Says while there she was getting Trospium BID. Ended up w UTI 03/23 (E Coli) and failing outpt abx. Admitted 03/31 w retention and SOLO. 875ml out when nath placed. Constipation treated inpt. Failed void trial so dc'd back to [facility] w Nath in place. PCP dc'd nath 04/08. No PVRs done per [facility] staff (we called). Dc'd home from [facility] on 05/07. PVR today 145ml. Ordered: Complex E&M Add on G2211 E&M of Est. Patient Moderate 30-39 Min 56606 3. Other urethral stricture, female (N35.82: Other urethral stricture, female) S/p UD done 06/16/[address] Moreno. at ov May 2023 reported worsening freq/urge/noct despite no change in intake so we decided to repeat UD s/p UD 07/23/23 w [facility] - urethra tight at 18fr, bladder w moderate trabec no improvement in sx after UD. [1] Ordered: Complex E&M Add on G2211 E&M of Est. Patient Moderate 30-39 Min 68202 4. Recurrent UTI (N39.0: Urinary tract infection, site not specified) Had E Coli UTI 03/23 (see above) and another UTI 04/14/24 (E Coli) Denies sx since early Apr. UA today neg. Ordered: 11506 Measure Post Void residual urine and/or bladder capacity by US- non-imaging Complex E&M Add on G2211 E&M of Est. Patient Moderate 30-39 Min 31365 Urnls Dip Stick Auto w/o Microscopy POC 19616 Orders: trospium, 20 mg = 1 tab(s), Oral, Bedtime, # 90 tab(s), Refills(s) 3, Pharmacy: [facility]/pharmacy #[id number], 165, cm, 05/27/24 11:39:00 EST, Height/Length Dosing, 91, kg, 05/27/24 11:39:00 EST, Weight Dosing Total time spent reviewing previous notes/results/external documents, preparing the chart, conducting the encounter with the patient and family, ordering tests/medications, and documenting the encounter was 30 minutes. extra time spent on phone w [facility] and reviewing admission/ER notes. Follow-up With When Contact Information BRENDA MARIN PA-C, URL Within 6 weeks [address] [place] [address] Business (1) Additional Instructions: Patient Education Overactive Bladder, Adult Problem List/Past Medical History Ongoing Acute kidney injury Chronic cystitis Chronic kidney disease stage 3 Cigarette smoker Dorsalgia Incomplete bladder emptying Metastatic malignant neoplasm to bone OAB (overactive bladder) Other urethral stricture, female Recurrent UTI Retention of urine Seizure Historical Abdominal tenderness Acute UTI Dysuria Feeling of incomplete bladder emptying Frequency of urination Nocturia Other post-traumatic urethral stricture, female Urinary urgency Weak urine stream Procedure/Surgical History Cystoscopy (12/03/2023), Cystourethroscopy with dilation of urethral stricture (07/23/2023), Cystourethroscopy with dilation of urethral stricture (06/16/2016), Appendectomy, Biopsy of breast, Hysterectomy. Medications acetaminophen-oxycodone 325 mg-2.5 mg (more content not included)... Normal [facility] Comment on above: Result Comment: Elec tronically Signed By: MIAH ROE, BRENDA Poole\.br\Date and Time Signed: 05/27/24 12:25 EST 36on 05-20-2024 36 Peg with [facility] called requesting patient be set up with [facility]. [employer] noted that patient has not been seen in clinic and has continually cancelled appointments made. Peg provided new contact information for patient. [facility] 36on 05-16-2024 36 I thought I had writ ten down the name, but I had not, I can call the patient and find out if you'd like, they mentioned that the notes from [facility] were not enough for them for care, I'm sorry [facility] 36 What [facility] led as we are not following her. [facility] 36 [facility] called i n to see if the patient has been seen, informed [facility] that patient was scheduled twice in March,but cancelled both, wants to know if we can still schedule her for a hospital follow up [facility] Basophils Auto (Bld) [#/Vol] on 04-22-2024 Basophils (Bld) [#/Vol] Automated basophil count 0.0-0.1 [facility] Basophils/100 WBC Auto (Bld) on 04-22-2024 Basophils/100 WBC (Bld) Automated basophil % 0. 2-2.0 [facility] Eosinophils/100 WBC Auto (Bl d)on 12-10-2024 Eosinophils/100 WBC (Bld) Automated eosinophil % High 0.9-7.0 [facility] Erythrocyte distribution wid th Auto (RBC) [Ratio]on 04-22-2024 Erythrocyte distribution width (RBC) [Ratio] Erythrocyte distribution width [Ratio] by Automated count High 11.0-15.0 [facility] Estimated glomerular filtrat ion rate (GFR) non- Americanon 04-22-2024 GFR/1.73 sq M.predicted among non-blacks MDRD (S/P/Bld) [Vol rate/Area] Estimated glomerular filtration rate (GFR) non- Low >=60 mL/min/1.7 3m 2 [facility] Hematocrit Auto (Bld) [Volum e fraction]on 04-22-2024 Hematocrit (Bld) [Volume fraction] Hematocrit [Volume Fraction] of Blood by Automated count 36.0-48.0 [facility] Hemoglobin [Mass/volume] in Bloodon 04-22-2024 Hemoglobin (Bld) [Mass/Vol] Hemoglobin [Mass/volume] in Blood Low 12.0-16.0 [facility] INR in Platelet poor plasma by Coagulation assayon 04-22-2024 INR Coag (PPP) [Relative time] INR in Platelet poor plasma by Coagulation assay [facility] Comment on above: DESIRED INR:2.0-3.0 CONDITIONS NOT LISTED BELOW2.5-3.5 FOR PROSTHETIC HEART VALVE REPLACEMENT2.5-3.5 RECURRENT THROMBOSIS Laboratory - Chemistry and C hemistry - challengeon 04-22-2024 Calcium [Mass/Vol] 9.3 mg/dL 8.5-10.1 [facility] Chloride [Moles/Vol] 107 mmol/L 98-107 [facility] CO2 [Moles/Vol] 28.4 mmol/L 21.0-32.0 [facility] Creatinine [Mass/Vol] 1.61 mg/dL High 0.55-1.02 [facility] GFR/1.73 sq M.predicted MDRD (S/P/Bld) [Vol rate/Area] 38 mL/min/{1.73_m2} Low >=60 mL/min/1.7 3m 2 [facility] Glucose [Mass/Vol] 98 mg/dL 74-106 [facility] Potassium [Moles/Vol] 4.9 mmol/L 3.5-5.1 [facility] Sodium [Moles/Vol] 142 mmol/L 136-145 [facility] Urea nitrogen [Mass/Vol] 28.0 mg/dL High 7.0-18.0 [facility] Urea nitrogen/Creatinine [Mass ratio] 17.4 mg/mg [facility] Laboratory - Hematology and Cell countson 04-22-2024 Immature granulocytes/100 WBC (Bld) 0.6 % High 0.0-0.5 [facility] Leukocytes [#/volume] correc kyleigh for nucleated erythrocytes in Blood by Automated counon 04-22-2024 WBC corrected for nucl RBC Auto (Bld) [#/Vol] Leukocytes [#/volume] corrected for nucleated erythrocytes in Blood by Automated coun 4.0-11.0 [facility] Lymphocytes Auto (Bld) [#/Vo l]on 04-22-2024 Lymphocytes (Bld) [#/Vol] Lymphocytes [#/volume] in Blood by Automated count 1.2-3.8 [facility] Lymphocytes/100 WBC Auto (Bl d)on 04-22-2024 Lymphocytes/100 WBC (Bld) Lymphocytes/100 leukocytes in Blood by Automated count 20.5-60.0 [facility] MCH Auto (RBC) [Entitic mass ]on 04-22-2024 MCH (RBC) [Entitic mass] MCH [Entitic mass] by Automated count 26.7-34.0 [facility] MCHC Auto (RBC) [Mass/Vol]on 04-22-2024 MCHC (RBC) [Mass/Vol] MCHC [Mass/volume] by Automated count 29.9-35.2 [facility] MCV Auto (RBC) [Entitic vol] on 04-22-2024 MCV (RBC) [Entitic vol] MCV [Entitic vol ume] by Automated count 81.0-99.0 [facility] Monocytes Auto (Bld) [#/Vol] on 04-22-2024 Monocytes (Bld) [#/Vol] Automated blood monocyte count 0.3-0.8 [facility] Monocytes/100 WBC Auto (Bld) on 04-22-2024 Monocytes/100 WBC (Bld) Automated monocyte % 1. 7-12.0 [facility] Neutrophils Auto (Bld) [#/Vo l]on 04-22-2024 Neutrophils (Bld) [#/Vol] Neutrophils [#/volume] in Blood by Automated count 1.4-6.5 [facility] Neutrophils/100 WBC Auto (Bl d)on 04-22-2024 Neutrophils/100 WBC (Bld) Automated neutrophil % 43.0-75.0 [facility] No Panel Informationon 04-22 Troponin I High Sensitivity 7.3 pg/mL 4.0-51.3 [facility] Comment on above: CUT-OFF POINTS HAVE BEEN ESTABLISHED BASED ON THE FOURTHIVERSAL DEFINITION OF MYOCARDIAL INFARCTION. THE UPPERREFERENCE LIMIT (URL) OF TROPONIN, DEFINED THE 99THPERCENTILE OF cTnI DISTRIBUTION IN A REFERENCE POPULATION,HAS BEEN CONFIRMED THE DECISION THRESHOLD FOR MIDIAGNOSIS.99TH PERCENTILE = 51.4 PG/MLNOTE: HIGH-SENSITIVITY TROPONIN ASSAY IS NOT INTENDED TO BEUSED IN ISOLATION BUT SHOULD BE INTERPRETED IN CONJUNCTIONWITH OTHER DIAGNOSTIC AND CLINICAL INFORMATION. Eosinophils # (Auto) 0.7 10 3/uL 0.0-0.7 [facility] Immature Granulocyte # (Auto) 0.05 10 3/uL High 0.00-0.03 [facility] Platelet mean volume Auto (B ld) [Entitic vol]on 04-22-2024 Platelet mean volume (Bld) [Entitic vol] Platelet mean volume [Entitic volume] in Blood by Automated count 9.5-13.5 [facility] Platelets Auto (Bld) [#/Vol] on 04-22-2024 Platelets (Bld) [#/Vol] Platelets [#/vol ume] in Blood by Automated count 150-450 [facility] Prothrombin time (PT)on 04-13 PT Coag (PPP) [Time] Prothrombin time (PT) 9.0- 11.6 [facility] RBC Auto (Bld) [#/Vol]on RBC (Bld) [#/Vol] Erythrocytes [#/volu me] in Blood by Automated count Low 4.20-5.40 [facility] Serum or plasma anion gap de terminationon 04-22-2024 Anion gap [Moles/Vol] Serum or plasma an ion gap determination [facility] 36on 04-07-2024 36 Sorry, forgot to put in, she was cancelled because she's still in rehab Normal [facility] 36 Patient's eye is sti ll bothering her from the shingles, Angelicavito Landa would like a call back at [phone], can leave a detailed message Normal [facility] Telephoneon 04-07-2024 Telephone [phone] Roberto Lewis gildardo Ruby 1945 F Date Provider Department Center 04/07/2024 [facility] No family history on file Normal [facility] Alanine aminotransferase [En zymatic activity/volume] in Serum or PlasmaOrdered By: Rosendo Law on 04-01-2024 ALT [Catalytic activity/Vol] Alanine aminotransferase [Enzymatic activity/volume] in Serum or Plasma 52 [facility] Albumin [Mass/volume] in Ser um or Plasma by Bromocresol green (BCG) dye binding methoOrdered By: Rosendo Law on 04-01-2024 Albumin BCG dye [Mass/Vol] Albumin [Mass/volume] in Serum or Plasma by Bromocresol green (BCG) dye binding metho 3.5-5.7 [facility] Alkaline phosphatase [Enzyma tic activity/volume] in Serum or PlasmaOrdered By: Rosendo Law on 04-01-2024 ALP [Catalytic activity/Vol] Alkaline phosphatase [Enzymatic activity/volume] in Serum or Plasma 34-104 [facility] Aspartate aminotransferase [ Enzymatic activity/volume] in Serum or PlasmaOrdered By: Rosendo Law on 04-01-2024 AST [Catalytic activity/Vol] Aspartate aminotransferase [Enzymatic activity/volume] in Serum or Plasma 13-39 [facility] Basophils Auto (Bld) [#/Vol] Ordered By: Rosendo Law on 04-01-2024 Basophils (Bld) [#/Vol] Automated basophil count 0.0-0.2 [facility] Basophils/100 WBC Auto (Bld) Ordered By: Rosendo Law on 04-01-2024 Basophils/100 WBC (Bld) Automated basophil % . [facility] Bilirubin.total [Mass/volume ] in Serum or PlasmaOrdered By: Rosendo Law on 04-01-2024 Bilirubin [Mass/Vol] Bilirubin.total [Mass/volume] in Serum or Plasma 0.3-1.0 [facility] Calcium [Mass/volume] in Ser um or PlasmaOrdered By: Rosendo Law on 04-01-2024 Calcium [Mass/Vol] Calcium [Mass/volume ] in Serum or Plasma 8.6-10.3 [facility] Carbon dioxide, total [Moles /volume] in Serum or PlasmaOrdered By: Rosendo Law on 04-01-2024 CO2 [Moles/Vol] Carbon dioxide, tota l [Moles/volume] in Serum or Plasma 21.0-31.0 [facility] Chloride [Moles/volume] in S alison or PlasmaOrdered By: Rosendo Law on 04-01-2024 Chloride [Moles/Vol] Chloride [Moles/vol ume] in Serum or Plasma 98-107 [facility] Complete Blood Count Auto Di ffon 04-01-2024 Basophils (Bld) [#/Vol] 0.1 10*3/uL Normal 0.0-0.2 [facility] Comment on above: Result Comment: PERF ORMED BY: [place] [address] PATHOLOGIST PATIENT REGISTRATION CLERK CHUY OLIVERA M.D. Performed By: #### C BC, CMP #### [address] Basophils/100 WBC (Bld) 1.3 % Normal . [facility] Comment on above: Performed By: #### C BC, CMP #### [address] Eosinophils (Bld) [#/Vol] 0.7 10*3/uL High 0.0-0.45 [facility] Comment on above: Performed By: #### C BC, CMP #### [address] Eosinophils/100 WBC (Bld) 8.7 % Normal . [facility] Comment on above: Performed By: #### C BC, CMP #### [address] Erythrocyte distribution width (RBC) [Ratio] 18.4 % High 11.9-15.3 [facility] Comment on above: Performed By: #### C BC, CMP #### [address] Hematocrit (Bld) [Volume fraction] 42.0 % Normal 34.0-46.4 [facility] Comment on above: Performed By: #### C BC, CMP #### [address] Hemoglobin (Bld) [Mass/Vol] 13.8 g/dL Normal 11.8-15.4 [facility] Comment on above: Performed By: #### C BC, CMP #### [address] Lymphocytes (Bld) [#/Vol] 2.1 10*3/uL Normal 1.00-4.8 [facility] Comment on above: Performed By: #### C BC, CMP #### [address] Lymphocytes/100 WBC (Bld) 28.1 % Normal . [facility] Comment on above: Performed By: #### C BC, CMP #### [address] MCH (RBC) [Entitic mass] 30.5 pg Normal 24.7-34.3 [facility] Comment on above: Performed By: #### C BC, CMP #### [address] MCV (RBC) [Entitic vol] 92.7 fL Normal 80-100 [facility] Comment on above: Performed By: #### C BC, CMP #### [address] Mean Corpuscular HGB Conc 32.9 g/dL Normal 32.0-35.0 [facility] Comment on above: Performed By: #### C BC, CMP #### [address] Monocytes (Bld) [#/Vol] 0.7 10*3/uL Normal 0.0-0.8 [facility] Comment on above: Performed By: #### C BC, CMP #### [address] Monocytes/100 WBC (Bld) 9.3 % Normal . [facility] Comment on above: Performed By: #### C BC, CMP #### [address] Neutrophils (Bld) [#/Vol] 4.0 10*3/uL Normal 1.8-7.7 [facility] Comment on above: Performed By: #### C BC, CMP #### [address] Neutrophils/100 WBC (Bld) 52.6 % Normal . [facility] Comment on above: Performed By: #### C BC, CMP #### [address] NRBC% 0.1 /100{WBC} Normal 0-0.5 [facility] Comment on above: Performed By: #### C BC, CMP #### [address] Platelet mean volume (Bld) [Entitic vol] 9.7 fL Normal 6.3-10.7 [facility] Comment on above: Performed By: #### C BC, CMP #### [place] [address] [place] Platelets (Bld) [#/Vol] 233 10*3/uL Normal 150-450 [facility] Comment on above: Performed By: #### C BC, CMP #### [place] [address] [place] RBC (Bld) [#/Vol] 4.53 10*6/uL Normal 3.60-5.00 [facility] Comment on above: Performed By: #### C BC, CMP #### [address] WBC (Bld) [#/Vol] 7.5 10*3/uL Normal 3.8-11.6 [facility] Comment on above: Performed By: #### C BC, CMP #### [address] Comprehensive Metabolic Pane meagan 04-01-2024 Albumin [Mass/Vol] 3.5 g/dL Normal 3.5-5.7 [facility] Comment on above: Performed By: #### C BC, CMP #### [address] Albumin/Globulin [Mass ratio] 1.5 {ratio} Normal [facility] Comment on above: Performed By: #### C BC, CMP #### [address] ALP [Catalytic activity/Vol] 56 U/L Normal 34-104 [facility] Comment on above: Performed By: #### C BC, CMP #### [address] ALT [Catalytic activity/Vol] 16 U/L Normal 7-52 [facility] Comment on above: Performed By: #### C BC, CMP #### [address] Anion gap [Moles/Vol] 11.7 mmol/L Normal 6.0-15.0 [facility] e [facility] Comment on above: Performed By: #### C BC, CMP #### [address] AST [Catalytic activity/Vol] 16 U/L Normal 13-39 [facility] Comment on above: Performed By: #### C BC, CMP #### [address] Bilirubin [Mass/Vol] 0.4 mg/dL Normal 0.3-1.0 [facility] Comment on above: Performed By: #### C BC, CMP #### [address] Calcium [Mass/Vol] 9.6 mg/dL Normal 8.6-10.3 [facility] Comment on above: Performed By: #### C BC, CMP #### [address] Chloride [Moles/Vol] 107 mmol/L Normal 98-107 [facility] Comment on above: Performed By: #### C BC, CMP #### [address] CO2 [Moles/Vol] 26.5 mmol/L Normal 21.0-31.0 [facility] Comment on above: Performed By: #### C BC, CMP #### [address] Creatinine [Mass/Vol] 0.92 mg/dL Normal 0.60-1.20 [facility] Comment on above: Performed By: #### C BC, CMP #### [address] Creatinine Clr Calc Pharmacy 53.39 Normal [facility] Comment on above: Result Comment: PERF ORMED BY: [place] [address] PATHOLOGIST PATIENT REGISTRATION CLERK CHUY OLIVERA M.D. Performed By: #### C BC, CMP #### [address] GFR/1.73 sq M.predicted MDRD (S/P/Bld) [Vol rate/Area] mL/min/{1.73_m2} Normal [facility] Comment on above: Performed By: #### C BC, CMP #### [address] Globulin (S) [Mass/Vol] 2.3 g/dL Normal T [facility] Comment on above: Performed By: #### C BC, CMP #### [address] [place] [address] [place] Glucose [Mass/Vol] 82 mg/dL Normal 70-100 [facility] Comment on above: Result Comment: Edna Glucose Reference Range is dependent on time and content of last meal. Glucose of more than 200 mg/dL in a nonstressed, ambulatory subject supports the diagnosis of Diabetes Mellitus. ADA recommended reference range Performed By: #### C BC, CMP #### [address] Potassium [Moles/Vol] 4.2 mmol/L Normal 3.5-5.1 [facility] Comment on above: Performed By: #### C BC, CMP #### [address] Protein [Mass/Vol] 5.8 g/dL Low 6.4-8.9 [facility] Comment on above: Performed By: #### C BC, CMP #### [address] Sodium [Moles/Vol] 141 mmol/L Normal 136-145 [facility] Comment on above: Performed By: #### C BC, CMP #### [place] [address] [place] Urea nitrogen [Mass/Vol] 13 mg/dL Normal 7-25 [facility] Comment on above: Performed By: #### C BC, CMP #### [place] [address] [place] Creatinine [Mass/volume] in Serum or PlasmaOrdered By: Rosendo Law on 04-01-2024 Creatinine [Mass/Vol] Creatinine [Mass/v olume] in Serum or Plasma 0.60-1.20 [facility] Eosinophils Auto (Bld) [#/Vo l]Ordered By: Rosendo Law on 04-01-2024 Eosinophils (Bld) [#/Vol] Automated eosinophil count High 0.0-0.45 [facility] Eosinophils/100 WBC Auto (Bl d)Ordered By: Rosendo Law on 04-01-2024 Eosinophils/100 WBC (Bld) Automated eosinophil % . [facility] Erythrocyte distribution wid th Auto (RBC) [Ratio]Ordered By: Rosendo Law on 04-01-2024 Erythrocyte distribution width (RBC) [Ratio] Erythrocyte distribution width [Ratio] by Automated count High 11.9-15.3 [facility] Globulin Calc (S) [Mass/Vol] Ordered By: Rosendo Law on 04-01-2024 Globulin (S) [Mass/Vol] Serum globulin measurement by calculation (mass/volume) [facility] Glucose [Mass/volume] in Ser um or PlasmaOrdered By: Rosendo Law on 04-01-2024 Glucose [Mass/Vol] Glucose [Mass/volume ] in Serum or Plasma 70-100 [facility] Comment on above: ADA recommended refe rence rangeRandom Glucose Reference Range is dependent on time and content of last meal. Glucose of more than 200 mg/dL in a nonstressed, ambulatory subject supports the diagnosis of Diabetes Mellitus. Hematocrit Auto (Bld) [Volum e fraction]Ordered By: Rosendo Law on 04-01-2024 Hematocrit (Bld) [Volume fraction] Hematocrit [Volume Fraction] of Blood by Automated count 34.0-46.4 [facility] Hemoglobin [Mass/volume] in BloodOrdered By: Rosendo Law on 04-01-2024 Hemoglobin (Bld) [Mass/Vol] Hemoglobin [Mass/volume] in Blood 11.8-15.4 [facility] Leukocytes [#/volume] correc kyleigh for nucleated erythrocytes in Blood by Automated counOrdered By: Rosendo Law on 04-01-2024 WBC corrected for nucl RBC Auto (Bld) [#/Vol] Leukocytes [#/volume] corrected for nucleated erythrocytes in Blood by Automated coun 3.8-11.6 [facility] Lymphocytes Auto (Bld) [#/Vo l]Ordered By: Rosendo Law on 04-01-2024 Lymphocytes (Bld) [#/Vol] Lymphocytes [#/volume] in Blood by Automated count 1.00-4.8 [facility] Lymphocytes/100 WBC Auto (Bl d)Ordered By: Rosendo Law on 04-01-2024 Lymphocytes/100 WBC (Bld) Lymphocytes/100 leukocytes in Blood by Automated count . [facility] MCH Auto (RBC) [Entitic mass ]Ordered By: Rosendo Law on 04-01-2024 MCH (RBC) [Entitic mass] MCH [Entitic mass] by Automated count 24.7-34.3 [facility] MCHC Auto (RBC) [Mass/Vol]Or dered By: Rosendo Law on 04-01-2024 MCHC (RBC) [Mass/Vol] MCHC [Mass/volume] by Automated count 32.0-35.0 [facility] MCV Auto (RBC) [Entitic vol] Ordered By: Rosendo Law on 04-01-2024 MCV (RBC) [Entitic vol] MCV [Entitic vol ume] by Automated count 80-100 [facility] Monocytes Auto (Bld) [#/Vol] Ordered By: Rosendo Law on 04-01-2024 Monocytes (Bld) [#/Vol] Automated blood monocyte count 0.0-0.8 [facility] Monocytes/100 WBC Auto (Bld) Ordered By: Rosendo Law on 04-01-2024 Monocytes/100 WBC (Bld) Automated monocyte % . [facility] Neutrophils Auto (Bld) [#/Vo l]Ordered By: Rosendo Law on 04-01-2024 Neutrophils (Bld) [#/Vol] Neutrophils [#/volume] in Blood by Automated count 1.8-7.7 [facility] Neutrophils/100 WBC Auto (Bl d)Ordered By: Rosendo Law on 04-01-2024 Neutrophils/100 WBC (Bld) Automated neutrophil % . [facility] No Panel InformationOrdered By: Rosendo Law on 04-01-2024 Estimated GFR (CKD-EPI) > 60.0 mL/Min [facility] Creatinine Clearance (Chem 53.39 [facility] Nucleated erythrocytes [Pres ence] in Blood by Automated countOrdered By: Rosendo Law on 04-01-2024 Nucleated RBC Auto Ql (Bld) Nucleated erythrocytes [Presence] in Blood by Automated count 0-0.5 [facility] Platelet mean volume Auto (B ld) [Entitic vol]Ordered By: Rosendo Law on 04-01-2024 Platelet mean volume (Bld) [Entitic vol] Platelet mean volume [Entitic volume] in Blood by Automated count 6.3-10.7 [facility] Platelets Auto (Bld) [#/Vol] Ordered By: Rosendo Law on 04-01-2024 Platelets (Bld) [#/Vol] Platelets [#/vol ume] in Blood by Automated count 150-450 [facility] Potassium [Moles/volume] in Serum or PlasmaOrdered By: Rosendo Law on 04-01-2024 Potassium [Moles/Vol] Potassium [Moles/v olume] in Serum or Plasma 3.5-5.1 [facility] Protein [Mass/volume] in Ser um or PlasmaOrdered By: Rosendo Law on 04-01-2024 Protein [Mass/Vol] Protein [Mass/volume ] in Serum or Plasma Low 6.4-8.9 [facility] RBC Auto (Bld) [#/Vol]Ordere d By: Rosendo Law on 04-01-2024 RBC (Bld) [#/Vol] Erythrocytes [#/volu me] in Blood by Automated count 3.60-5.00 [facility] Serum or plasma albumin/glob ulin mass ratioOrdered By: Rosendo Law on 04-01-2024 Albumin/Globulin [Mass ratio] Serum or plasma albumin/globulin mass ratio [facility] Serum or plasma anion gap de terminationOrdered By: Rosendo Law on 04-01-2024 Anion gap [Moles/Vol] Serum or plasma an ion gap determination 6.0-15.0 [facility] Sodium [Moles/volume] in Ser um or PlasmaOrdered By: Rosendo Law on 04-01-2024 Sodium [Moles/Vol] Sodium [Moles/volume ] in Serum or Plasma 136-145 [facility] Urea nitrogen [Mass/volume] in Serum or PlasmaOrdered By: Rosendo Law on 04-01-2024 Urea nitrogen [Mass/Vol] Urea nitrogen [Mass/volume] in Serum or Plasma 7-25 [facility] WBC Auto (Bld) [#/Vol]Ordere d By: Rosendo Law on 04-01-2024 WBC (Bld) [#/Vol] Leukocytes [#/volume ] in Blood by Automated count 3.8-11.6 [facility] Alanine aminotransferase [En zymatic activity/volume] in Serum or PlasmaOrdered By: Jarad Vargas on 03-31-2024 ALT [Catalytic activity/Vol] Alanine aminotransferase [Enzymatic activity/volume] in Serum or Plasma 7-52 [facility] Albumin [Mass/volume] in Ser um or Plasma by Bromocresol green (BCG) dye binding methoOrdered By: Jarad Vargas on 03-31-2024 Albumin BCG dye [Mass/Vol] Albumin [Mass/volume] in Serum or Plasma by Bromocresol green (BCG) dye binding metho 3.5-5.7 [facility] Alkaline phosphatase [Enzyma tic activity/volume] in Serum or PlasmaOrdered By: Jarad Vargas on 03-31-2024 ALP [Catalytic activity/Vol] Alkaline phosphatase [Enzymatic activity/volume] in Serum or Plasma 34-104 [facility] Appearance of UrineOrdered B y: Jarad Vargas on 03-31-2024 Appearance (U) Urine appearance Clear [facility] Aspartate aminotransferase [ Enzymatic activity/volume] in Serum or PlasmaOrdered By: Jarad Vargas on 03-31-2024 AST [Catalytic activity/Vol] Aspartate aminotransferase [Enzymatic activity/volume] in Serum or Plasma 13-39 [facility] Bacteria [Presence] in Urine by AutomatedOrdered By: Jarad Vargas on 03-31-2024 Bacteria Auto Ql (U) Bacteria [Presence] in Urine by Automated None Seen [facility] Basic Metabolic Panelon 03-14 Anion gap [Moles/Vol] 14.3 mmol/L Normal 6.0-15.0 Th e [facility] Comment on above: Performed By: #### H S TROP, CUBLD, PTT, PT, [id number], [id number], LIPASE, TSH3, BMP, HEPATIC, CBC, CK, LACTIC ####[facility] [id number] Calcium [Mass/Vol] 9.7 mg/dL Normal 8.6-10.3 [facility] Comment on above: Performed By: #### H S TROP, CUBLD, PTT, PT, [id number], [id number], LIPASE, TSH3, BMP, HEPATIC, CBC, CK, LACTIC ####[facility] [place] [id number] [facility] Chloride [Moles/Vol] 108 mmol/L High 98-107 [facility] Comment on above: Performed By: #### H S TROP, CUBLD, PTT, PT, [id number], [id number], LIPASE, TSH3, BMP, HEPATIC, CBC, CK, LACTIC ####[address] CO2 [Moles/Vol] 25.5 mmol/L Normal 21.0-31.0 [facility] Comment on above: Performed By: #### H S TROP, CUBLD, PTT, PT, [id number], [id number], LIPASE, TSH3, BMP, HEPATIC, CBC, CK, LACTIC ####[address] Creatinine [Mass/Vol] 1.17 mg/dL Normal 0.60-1.20 [facility] Comment on above: Performed By: #### H S TROP, CUBLD, PTT, PT, [id number], [id number], LIPASE, TSH3, BMP, HEPATIC, CBC, CK, LACTIC ####[address] Creatinine Clr Calc Pharmacy 43.86 Normal [facility] Comment on above: Performed By: #### H S TROP, CUBLD, PTT, PT, [id number], [id number], LIPASE, TSH3, BMP, HEPATIC, CBC, CK, LACTIC ####[address] Estimated GFR 48.060 mL/Min Normal [facility] Comment on above: Performed By: #### H S TROP, CUBLD, PTT, PT, [id number], [id number], LIPASE, TSH3, BMP, HEPATIC, CBC, CK, LACTIC ####[address] Glucose [Mass/Vol] 93 mg/dL Normal 70-100 [facility] Comment on above: Result Comment: Edna Glucose Reference Range is dependent on time and content of last meal. Glucose of more than 200 mg/dL in a nonstressed, ambulatory subject supports the diagnosis of Diabetes Mellitus. ADA recommended reference range Performed By: #### H S TROP, CUBLD, PTT, PT, [id number], [id number], LIPASE, TSH3, BMP, HEPATIC, CBC, CK, LACTIC ####[place] [id number] [address] Potassium [Moles/Vol] 3.8 mmol/L Normal 3.5-5.1 [facility] Comment on above: Performed By: #### H S TROP, CUBLD, PTT, PT, [id number], [id number], LIPASE, TSH3, BMP, HEPATIC, CBC, CK, LACTIC ####[place] [id number] [address] Sodium [Moles/Vol] 144 mmol/L Normal 136-145 [facility] Comment on above: Performed By: #### H S TROP, CUBLD, PTT, PT, [id number], [id number], LIPASE, TSH3, BMP, HEPATIC, CBC, CK, LACTIC ####[place] [address] [address] Urea nitrogen [Mass/Vol] 19 mg/dL Normal 7-25 [facility] Comment on above: Performed By: #### H S TROP, CUBLD, PTT, PT, [id number], [id number], LIPASE, TSH3, BMP, HEPATIC, CBC, CK, LACTIC ####[address] Basophils Auto (Bld) [#/Vol] Ordered By: Jarad Vargas on 03-31-2024 Basophils (Bld) [#/Vol] Automated basophil count 0.0-0.2 [facility] Basophils/100 WBC Auto (Bld) Ordered By: Jarad Vargas on 03-31-2024 Basophils/100 WBC (Bld) Automated basophil % . [facility] Bilirubin Test strip Ql (U)O rdered By: Jarad Vargas on 03-31-2024 Bilirubin Ql (U) Bilirubin.total [Presence] in Urine by Test strip Negative [facility] Bilirubin.direct [Mass/volum e] in Serum or PlasmaOrdered By: Jarad Vargas on 03-31-2024 Bilirubin.direct [Mass/Vol] Bilirubin.direct [Mass/volume] in Serum or Plasma 0.03-0.18 [facility] Bilirubin.total [Mass/volume ] in Serum or PlasmaOrdered By: Jarad Vargas on 03-31-2024 Bilirubin [Mass/Vol] Bilirubin.total [Mass/volume] in Serum or Plasma 0.3-1.0 [facility] Blood Cultureon 03-31-2024 Bacteria identified Cx Nom (Bld) NO GROWTH 5 DAYS PERFORMED BY: [place] [address] PATHOLOGIST PATIENT REGISTRATION CLERK CHUY OLIVERA M.D. Normal [facility] Comment on above: Performed By: #### H S TROP, CUBLD, PTT, PT, [id number], [id number], LIPASE, TSH3, BMP, HEPATIC, CBC, CK, LACTIC ####[place] [id number] [facility] Bacteria identified Cx Nom (Bld) NO GROWTH 5 DAYS PERFORMED BY: [place] [address] PATHOLOGIST PATIENT REGISTRATION CLERK CHUY OLIVERA M.D. Normal [facility] Comment on above: Performed By: #### H S TROP, CUBLD, PTT, PT, [id number], [id number], LIPASE, TSH3, BMP, HEPATIC, CBC, CK, LACTIC ####[place] [id number] [facility] CT abdomen pelvis w conon CT abdomen pelvis w con [facility] [place] [address] CT Scan Report Signed Patient: Aaron Lewis MR#: [id number] : 1945 Acct:[id number] Age/Sex: 79 / F ADM Date: 03/31/24 Loc: ER Room: Type: [facility] ER Attending Dr: Copies to: Jarad Vargas DO Ordering Provider: Jarad Vargas DO Date of Service: 03/31/24 CT/CT abdomen pelvis w con: ams lower abd/back pain ([id number]) CT/CT head/brain wo con: ams Unenhanced head [...] Emil Martin M.D.03/31/2024 10:02 AM Dictation Location: [place] [address] Transcribed By: [facility] 03/31/24 1002 Dictated By: Emil Martin DO 03/31/24 0952 Signed By: 03/31/24 1002 Normal [facility] Calcium [Mass/volume] in Ser um or PlasmaOrdered By: Jarad Vargas on 03-31-2024 Calcium [Mass/Vol] Calcium [Mass/volume ] in Serum or Plasma 8.6-10.3 [facility] Carbon dioxide, total [Moles /volume] in Serum or PlasmaOrdered By: Jarad Vargas on 03-31-2024 CO2 [Moles/Vol] Carbon dioxide, tota l [Moles/volume] in Serum or Plasma 21.0-31.0 [facility] Chloride [Moles/volume] in S alison or PlasmaOrdered By: Jarad Vargas on 03-31-2024 Chloride [Moles/Vol] Chloride [Moles/vol ume] in Serum or Plasma High 98-107 [facility] Color Auto (U)Ordered By: Nelson Vargas on 03-31-2024 Color (U) Color of Urine by Auto Yellow Fi [facility] Complete Blood Count Auto Di ffon 03-31-2024 Basophils (Bld) [#/Vol] 0.1 10*3/uL Normal 0.0-0.2 [facility] Comment on above: Result Comment: PERF ORMED BY: [facility] [address] [place] [address] PATHOLOGIST PATIENT REGISTRATION CLERK CHUY OLIVERA M.D. Performed By: #### H S TROP, CUBLD, PTT, PT, [id number], [id number], LIPASE, TSH3, BMP, HEPATIC, CBC, CK, LACTIC ####[facility] [place] [address] [facility] Basophils/100 WBC (Bld) 1.1 % Normal . T marisol [facility] Comment on above: Performed By: #### H S TROP, CUBLD, PTT, PT, [id number], [id number], LIPASE, TSH3, BMP, HEPATIC, CBC, CK, LACTIC ####[facility] [address] Eosinophils (Bld) [#/Vol] 0.2 10*3/uL Normal 0.0-0.45 [facility] Comment on above: Performed By: #### H S TROP, CUBLD, PTT, PT, [id number], [id number], LIPASE, TSH3, BMP, HEPATIC, CBC, CK, LACTIC ####[address] Eosinophils/100 WBC (Bld) 2.6 % Normal . [facility] Comment on above: Performed By: #### H S TROP, CUBLD, PTT, PT, [id number], [id number], LIPASE, TSH3, BMP, HEPATIC, CBC, CK, LACTIC ####[address] Erythrocyte distribution width (RBC) [Ratio] 18.1 % High 11.9-15.3 [facility] Comment on above: Performed By: #### H S TROP, CUBLD, PTT, PT, [id number], [id number], LIPASE, TSH3, BMP, HEPATIC, CBC, CK, LACTIC ####[address] Hematocrit (Bld) [Volume fraction] 40.7 % Normal 34.0-46.4 [facility] Comment on above: Performed By: #### H S TROP, CUBLD, PTT, PT, [id number], [id number], LIPASE, TSH3, BMP, HEPATIC, CBC, CK, LACTIC ####[address] Hemoglobin (Bld) [Mass/Vol] 13.3 g/dL Normal 11.8-15.4 [facility] Comment on above: Performed By: #### H S TROP, CUBLD, PTT, PT, [id number], [id number], LIPASE, TSH3, BMP, HEPATIC, CBC, CK, LACTIC ####[address] Lymphocytes (Bld) [#/Vol] 1.3 10*3/uL Normal 1.00-4.8 [facility] Comment on above: Performed By: #### H S TROP, CUBLD, PTT, PT, [id number], [id number], LIPASE, TSH3, BMP, HEPATIC, CBC, CK, LACTIC ####[address] Lymphocytes/100 WBC (Bld) 19.2 % Normal . [facility] Comment on above: Performed By: #### H S TROP, CUBLD, PTT, PT, [id number], [id number], LIPASE, TSH3, BMP, HEPATIC, CBC, CK, LACTIC ####[address] MCH (RBC) [Entitic mass] 30.4 pg Normal 24.7-34.3 [facility] Comment on above: Performed By: #### H S TROP, CUBLD, PTT, PT, [id number], [id number], LIPASE, TSH3, BMP, HEPATIC, CBC, CK, LACTIC ####[address] MCV (RBC) [Entitic vol] 93.5 fL Normal 80-100 T he [facility] Comment on above: Performed By: #### H S TROP, CUBLD, PTT, PT, [id number], [id number], LIPASE, TSH3, BMP, HEPATIC, CBC, CK, LACTIC ####[address] Mean Corpuscular HGB Conc 32.6 g/dL Normal 32.0-35.0 [facility] Comment on above: Performed By: #### H S TROP, CUBLD, PTT, PT, [id number], [id number], LIPASE, TSH3, BMP, HEPATIC, CBC, CK, LACTIC ####[address] Monocytes (Bld) [#/Vol] 0.6 10*3/uL Normal 0.0-0.8 [facility] Comment on above: Performed By: #### H S TROP, CUBLD, PTT, PT, [id number], [id number], LIPASE, TSH3, BMP, HEPATIC, CBC, CK, LACTIC ####[address] Monocytes/100 WBC (Bld) 19.18 % Normal 0.00-20.00 [facility] Comment on above: Performed By: #### H S TROP, CUBLD, PTT, PT, [id number], [id number], LIPASE, TSH3, BMP, HEPATIC, CBC, CK, LACTIC ####[address] Monocytes/100 WBC (Bld) 8.9 % Normal . [facility] Comment on above: Performed By: #### H S TROP, CUBLD, PTT, PT, [id number], [id number], LIPASE, TSH3, BMP, HEPATIC, CBC, CK, LACTIC ####[address] Neutrophils (Bld) [#/Vol] 4.7 10*3/uL Normal 1.8-7.7 [facility] Comment on above: Performed By: #### H S TROP, CUBLD, PTT, PT, [id number], [id number], LIPASE, TSH3, BMP, HEPATIC, CBC, CK, LACTIC ####[address] Neutrophils/100 WBC (Bld) 68.2 % Normal . [facility] Comment on above: Performed By: #### H S TROP, CUBLD, PTT, PT, [id number], [id number], LIPASE, TSH3, BMP, HEPATIC, CBC, CK, LACTIC ####[address] NRBC% 0.1 /100{WBC} Normal 0-0.5 [facility] Comment on above: Performed By: #### H S TROP, CUBLD, PTT, PT, [id number], [id number], LIPASE, TSH3, BMP, HEPATIC, CBC, CK, LACTIC ####[address] Platelet mean volume (Bld) [Entitic vol] 9.6 fL Normal 6.3-10.7 [facility] Comment on above: Performed By: #### H S TROP, CUBLD, PTT, PT, [id number], [id number], LIPASE, TSH3, BMP, HEPATIC, CBC, CK, LACTIC ####[address] Platelets (Bld) [#/Vol] 253 10*3/uL Normal 150-450 [facility] Comment on above: Performed By: #### H S TROP, CUBLD, PTT, PT, [id number], [id number], LIPASE, TSH3, BMP, HEPATIC, CBC, CK, LACTIC ####[address] RBC (Bld) [#/Vol] 4.36 10*6/uL Normal 3.60-5.00 [facility] Comment on above: Performed By: #### H S TROP, CUBLD, PTT, PT, [id number], [id number], LIPASE, TSH3, BMP, HEPATIC, CBC, CK, LACTIC ####[address] WBC (Bld) [#/Vol] 6.8 10*3/uL Normal 3.8-11.6 [facility] Comment on above: Performed By: #### H S TROP, CUBLD, PTT, PT, [id number], [id number], LIPASE, TSH3, BMP, HEPATIC, CBC, CK, LACTIC ####[address] Creatine Kinaseon 03-31-2024 CK [Catalytic activity/Vol] 23 U/L Low 30-223 [facility] Comment on above: Performed By: #### H S TROP, CUBLD, PTT, PT, [id number], [id number], LIPASE, TSH3, BMP, HEPATIC, CBC, CK, LACTIC ####[address] [place] [address] [place] Creatine kinase [Enzymatic a ctivity/volume] in Serum or PlasmaOrdered By: Jarad Vargas on 03-31-2024 CK [Catalytic activity/Vol] Creatine kinase [Enzymatic activity/volume] in Serum or Plasma Low 30-223 [facility] Creatinine [Mass/volume] in Serum or PlasmaOrdered By: Jarad Vargas on 03-31-2024 Creatinine [Mass/Vol] Creatinine [Mass/v olume] in Serum or Plasma 0.60-1.20 [facility] Dipstick and Microscopicon 1 05-31-2023 Appearance (U) Clear Normal Clear [facility] Comment on above: Order Comment: Name Collection Type:: Straight Catheter Performed By: #### A DDONUAPLUS, CUU #### [address] Bacteria,Urine None Seen Normal None Seen [facility] Comment on above: Order Comment: Name Collection Type:: Straight Catheter Performed By: #### A DDONUAPLUS, CUU #### [address] Bilirubin,Urine Negative Normal Negative [facility] Comment on above: Order Comment: Name Collection Type:: Straight Catheter Performed By: #### A DDONUAPLUS, CUU #### [address] Color (U) Light-Yellow Normal Yellow [facility] Comment on above: Order Comment: Name Collection Type:: Straight Catheter Performed By: #### A DDONUAPLUS, CUU #### [address] Glucose Ql (U) Normal Normal Normal [facility] Comment on above: Order Comment: Name Collection Type:: Straight Catheter Performed By: #### A DDONUAPLUS, CUU #### [place] [address] [place] Hyaline Casts,Urine 0 [LPF] Normal 0-8 [facility] Comment on above: Order Comment: Name Collection Type:: Straight Catheter Performed By: #### A DDONUAPLUS, CUU #### [address] Ketones Ql (U) Negative Normal Negative [facility] Comment on above: Order Comment: Name Collection Type:: Straight Catheter Performed By: #### A DDONUAPLUS, CUU #### [address] Leukocyte esterase Test strip Ql (U) 2+ High Negative [facility] Comment on above: Order Comment: Name Collection Type:: Straight Catheter Performed By: #### A DDONUAPLUS, CUU #### [place] [address] [place] Mucus,Urine Rare Normal [facility] Comment on above: Order Comment: Name Collection Type:: Straight Catheter Result Comment: PERF ORMED BY: [place] [address] PATHOLOGIST PATIENT REGISTRATION CLERK CHUY OLIVERA M.D. Performed By: #### A DDONUAPLUS, CUU #### [address] Nitrite,Urine Negative Normal Negative [facility] Comment on above: Order Comment: Name Collection Type:: Straight Catheter Performed By: #### A DDONUAPLUS, CUU #### [address] Occult Blood,Urine Negative Normal Negative [facility] Comment on above: Order Comment: Name Collection Type:: Straight Catheter Result Comment: PERF ORMED BY: [place] [address] PATHOLOGIST PATIENT REGISTRATION CLERK CHUY OLIVERA M.D. Performed By: #### A DDONUAPLUS, CUU #### [place] [address] [place] pH (U) 6.0 [pH] Normal 5.0-9.0 [facility] Comment on above: Order Comment: Name Collection Type:: Straight Catheter Performed By: #### A DDONUAPLUS, CUU #### [place] [address] [place] Protein,Urine Negative Normal Negative [facility] Comment on above: Order Comment: Name Collection Type:: Straight Catheter Performed By: #### A DDONUAPLUS, CUU #### [place] [address] [place] RBC,Urine 1 [HPF] Normal 0-4 [facility] Comment on above: Order Comment: Name Collection Type:: Straight Catheter Performed By: #### A DDONUAPLUS, CUU #### [place] [address] [place] Specificy [place],Urine 1.011 Normal 1.00 1-1.03 0 [facility] Comment on above: Order Comment: Name Collection Type:: Straight Catheter Performed By: #### A DDONUAPLUS, CUU #### [address] Squamous Epithelial Cell,Urine 1 [HPF] Normal 0-2 [facility] Comment on above: Order Comment: Name Collection Type:: Straight Catheter Performed By: #### A DDONUAPLUS, CUU #### [place] [address] [place] Urobilinogen,Urine Normal Normal Normal [facility] Comment on above: Order Comment: Name Collection Type:: Straight Catheter Performed By: #### A DDONUAPLUS, CUU #### [place] [address] [place] WBC,Urine 5 [HPF] High 0-4 [facility] Comment on above: Order Comment: Name Collection Type:: Straight Catheter Performed By: #### A DDONUAPLUS, CUU #### [place] [address] [place] ECG 12 lead ECGon 03-31-2024 ECG 12 lead ECG [facility] [place] [address] [place] [address] Electrocardiograph Report Signed Patient: Aaron Lewis MR#: [id number] : 1945 Acct:[id number] Age/Sex: 79 / F ADM Date: 03/31/24 Loc: Room: [address] [place] [address] Type: ADM IN Attending Dr: Rosendo Law [...] voltage QRS Confirmed by Jarad VARGAS DO ([id number]) on 03/31/2024 1:58:59 PM Referred By: Electronically Signed By: Jarad VARGAS DO Transcribed By: MUS Signed By Jarad Vargas DO 1 05/31/23 1359 Normal [facility] Eosinophils Auto (Bld) [#/Vo l]Ordered By: Jarad Vargas on 03-31-2024 Eosinophils (Bld) [#/Vol] Automated eosinophil count 0.0-0.45 [facility] Eosinophils/100 WBC Auto (Bl d)Ordered By: Jarad Vargas on 03-31-2024 Eosinophils/100 WBC (Bld) Automated eosinophil % . [facility] Epithelial cells.squamous [# /area] in Urine sediment by Automated countOrdered By: Jarad Vargas on 03-31-2024 Epithelial cells.squamous Auto (Urine sed) [#/Area] Epithelial cells.squamous [#/area] in Urine sediment by Automated count 0-2 [facility] Erythrocyte distribution wid th Auto (RBC) [Ratio]Ordered By: Jarad Vargas on 03-31-2024 Erythrocyte distribution width (RBC) [Ratio] Erythrocyte distribution width [Ratio] by Automated count High 11.9-15.3 [facility] Erythrocytes [#/area] in Uri ne sediment by Automated countOrdered By: Jarad Vargas on 03-31-2024 RBC Auto (Urine sed) [#/Area] Erythrocytes [#/area] in Urine sediment by Automated count 0-4 [facility] Folate [Mass/volume] in Seru m or PlasmaOrdered By: Rosendo Law on 03-31-2024 Folate [Mass/Vol] Folate [Mass/volume] in Serum or Plasma >5.9 [facility] Comment on above: Folate reference ran ge: >5.9 ng/mlThe WHO technical consultation on folate and vitamin [id number] has determined that folate concentrations lessthan 4 ng/ml are considered deficient. Globulin Calc (S) [Mass/Vol] Ordered By: Jarad Vargas on 03-31-2024 Globulin (S) [Mass/Vol] Serum globulin measurement by calculation (mass/volume) [facility] Glucose Glucometer (BldC) [M ass/Vol]Ordered By: Jarad Vargas on 03-31-2024 Glucose [Mass/Vol] Capillary blood gluc ose measurement by glucometer (mass/volume) [facility] Comment on above: Random Glucose Refer ence Range is dependent on time and content of last meal. Glucose of more than 200 mg/dL in a nonstressed, ambulatory subject supports the diagnosis of Diabetes Mellitus. Glucose Poct Glucometerson 1 05-31-2023 Glucose [Mass/Vol] 91 mg/dL Normal [facility] Comment on above: Result Comment: Edna om Glucose Reference Range is dependent on time and content of last meal. Glucose of more than 200 mg/dL in a nonstressed, ambulatory subject supports the diagnosis of Diabetes Mellitus. PERFORMED BY: [facility] [address] [facility] [place] [address] PATHOLOGIST PATIENT REGISTRATION CLERK CHUY OLIVERA M.D. Performed By: #### G LUTAMI ####Point of Care testing, Glucose [Mass/volume] in Ser um or PlasmaOrdered By: Jarda Vargas on 03-31-2024 Glucose [Mass/Vol] Glucose [Mass/volume ] in Serum or Plasma 70-100 [facility] Comment on above: ADA recommended refe rence rangeRandom Glucose Reference Range is dependent on time and content of last meal. Glucose of more than 200 mg/dL in a nonstressed, ambulatory subject supports the diagnosis of Diabetes Mellitus. Glucose [Mass/volume] in Uri ne by Test stripOrdered By: Jarad Vargas on 03-31-2024 Glucose Test strip (U) [Mass/Vol] Glucose [Mass/volume] in Urine by Test strip Normal [facility] Hematocrit Auto (Bld) [Volum e fraction]Ordered By: Jarad Vargas on 03-31-2024 Hematocrit (Bld) [Volume fraction] Hematocrit [Volume Fraction] of Blood by Automated count 34.0-46.4 [facility] Hemoglobin Test strip Ql (U) Ordered By: Jarad Vargas on 03-31-2024 Hemoglobin Ql (U) Hemoglobin [Presence ] in Urine by Test strip Negative [facility] Hemoglobin [Mass/volume] in BloodOrdered By: Jarad Vargas on 03-31-2024 Hemoglobin (Bld) [Mass/Vol] Hemoglobin [Mass/volume] in Blood 11.8-15.4 [facility] Hepatic Panelon 03-31-2024 Albumin [Mass/Vol] 3.5 g/dL Normal 3.5-5.7 [facility] Comment on above: Performed By: #### H S TROP, CUBLD, PTT, PT, [id number], [id number], LIPASE, TSH3, BMP, HEPATIC, CBC, CK, LACTIC ####[address] Albumin/Globulin [Mass ratio] 1.6 {ratio} Normal [facility] Comment on above: Performed By: #### H S TROP, CUBLD, PTT, PT, [id number], [id number], LIPASE, TSH3, BMP, HEPATIC, CBC, CK, LACTIC ####[address] ALP [Catalytic activity/Vol] 57 U/L Normal 34-104 [facility] Comment on above: Performed By: #### H S TROP, CUBLD, PTT, PT, [id number], [id number], LIPASE, TSH3, BMP, HEPATIC, CBC, CK, LACTIC ####[address] ALT [Catalytic activity/Vol] 17 U/L Normal 7-52 [facility] Comment on above: Performed By: #### H S TROP, CUBLD, PTT, PT, [id number], [id number], LIPASE, TSH3, BMP, HEPATIC, CBC, CK, LACTIC ####[address] AST [Catalytic activity/Vol] 14 U/L Normal 13-39 [facility] Comment on above: Performed By: #### H S TROP, CUBLD, PTT, PT, [id number], [id number], LIPASE, TSH3, BMP, HEPATIC, CBC, CK, LACTIC ####[address] Bilirubin [Mass/Vol] 0.4 mg/dL Normal 0.3-1.0 [facility] Comment on above: Performed By: #### H S TROP, CUBLD, PTT, PT, [id number], [id number], LIPASE, TSH3, BMP, HEPATIC, CBC, CK, LACTIC ####[address] Bilirubin,Indirect 0.3 mg/dL Normal [facility] Comment on above: Performed By: #### H S TROP, CUBLD, PTT, PT, [id number], [id number], LIPASE, TSH3, BMP, HEPATIC, CBC, CK, LACTIC ####[address] Bilirubin.indirect [Mass/Vol] 0.10 mg/dL Normal 0.03-0.18 [facility] Comment on above: Performed By: #### H S TROP, CUBLD, PTT, PT, [id number], [id number], LIPASE, TSH3, BMP, HEPATIC, CBC, CK, LACTIC ####[address] Globulin (S) [Mass/Vol] 2.2 g/dL Normal T [facility] Comment on above: Performed By: #### H S TROP, CUBLD, PTT, PT, [id number], [id number], LIPASE, TSH3, BMP, HEPATIC, CBC, CK, LACTIC ####[address] Protein [Mass/Vol] 5.7 g/dL Low 6.4-8.9 [facility] Comment on above: Performed By: #### H S TROP, CUBLD, PTT, PT, [id number], [id number], LIPASE, TSH3, BMP, HEPATIC, CBC, CK, LACTIC ####[facility] [id number] [place] [address] [facility] Hyaline casts [#/area] in Ur ine sediment by Automated countOrdered By: Jarad Vargas on 03-31-2024 Hyaline casts Auto (Urine sed) [#/Area] Hyaline casts [#/area] in Urine sediment by Automated count 0-8 [facility] INR in Platelet poor plasma by Coagulation assayOrdered By: Jarad Vargas on 03-31-2024 INR Coag (PPP) [Relative time] INR in Platelet poor plasma by Coagulation assay [facility] Comment on above: INR Therapeutic Rang e [...] i n Urine by Test strip Negative [facility] Laboratory - Microbiology an d Antimicrobial susceptibilityOrdered By: Jarad Vargas on 03-31-2024 Bacteria identified Cx Nom (Bld) NO GROWTH 5 DAYS [facility] Bacteria identified Cx Nom (Bld) NO GROWTH 5 DAYS [facility] Lactate [Moles/volume] in Se rum or PlasmaOrdered By: Jarad Vargas on 03-31-2024 Lactate [Moles/Vol] Lactate [Moles/volum e] in Serum or Plasma 0.5-2.2 [facility] Lactic Acidon 03-31-2024 Lactate [Moles/Vol] 1.2 mmol/L Normal 0.5-2.2 [facility] Comment on above: Result Comment: PERF ORMED BY: [facility] [address] [place] [address] PATHOLOGIST PATIENT REGISTRATION CLERK CHUY OLIVERA M.D. Performed By: #### H S TROP, CUBLD, PTT, PT, [id number], [id number], LIPASE, TSH3, BMP, HEPATIC, CBC, CK, LACTIC ####[facility] [place] [id number] [facility] Leukocyte esterase [Presence ] in Urine by Test stripOrdered By: Jarad Vargas on 03-31-2024 Leukocyte esterase Test strip Ql (U) Leukocyte esterase [Presence] in Urine by Test strip High Negative [facility] Leukocytes [#/area] in Urine sediment by Automated countOrdered By: Jarad Vargas on 03-31-2024 WBC Auto (Urine sed) [#/Area] Leukocytes [#/area] in Urine sediment by Automated count High 0-4 [facility] Leukocytes [#/volume] correc kyleigh for nucleated erythrocytes in Blood by Automated counOrdered By: Jarad Vargas on 03-31-2024 WBC corrected for nucl RBC Auto (Bld) [#/Vol] Leukocytes [#/volume] corrected for nucleated erythrocytes in Blood by Automated coun 3.8-11.6 [facility] Lipaseon 03-31-2024 Lipase [Catalytic activity/Vol] 20.0 U/L Normal 11.0-82.0 [facility] Comment on above: Performed By: #### H S TROP, CUBLD, PTT, PT, [id number], [id number], LIPASE, TSH3, BMP, HEPATIC, CBC, CK, LACTIC ####[facility] [place] [id number] [facility] Lipase [Enzymatic activity/v olume] in Serum or PlasmaOrdered By: Jarad Vargas on 03-31-2024 Lipase [Catalytic activity/Vol] Lipase [Enzymatic activity/volume] in Serum or Plasma 11.0-82.0 [facility] Lymphocytes Auto (Bld) [#/Vo l]Ordered By: Jarad Vargas on 03-31-2024 Lymphocytes (Bld) [#/Vol] Lymphocytes [#/volume] in Blood by Automated count 1.00-4.8 [facility] Lymphocytes/100 WBC Auto (Bl d)Ordered By: Jarad Vargas on 03-31-2024 Lymphocytes/100 WBC (Bld) Lymphocytes/100 leukocytes in Blood by Automated count . [facility] MCH Auto (RBC) [Entitic mass ]Ordered By: Jarad Vargas on 03-31-2024 MCH (RBC) [Entitic mass] MCH [Entitic mass] by Automated count 24.7-34.3 [facility] MCHC Auto (RBC) [Mass/Vol]Or dered By: Jarad Vargas on 03-31-2024 MCHC (RBC) [Mass/Vol] MCHC [Mass/volume] by Automated count 32.0-35.0 [facility] MCV Auto (RBC) [Entitic vol] Ordered By: Jarad Vargas on 03-31-2024 MCV (RBC) [Entitic vol] MCV [Entitic vol ume] by Automated count 80-100 [facility] Monocyte distribution width [Entitic volume] in Blood by AutomatedOrdered By: Jarad Vargas on 03-31-2024 Monocyte distribution width Auto (Bld) [Entitic vol] Monocyte distribution width [Entitic volume] in Blood by Automated 0.00-20.00 [facility] Monocytes Auto (Bld) [#/Vol] Ordered By: Jarad Vargas on 03-31-2024 Monocytes (Bld) [#/Vol] Automated blood monocyte count 0.0-0.8 [facility] Monocytes/100 WBC Auto (Bld) Ordered By: Jarad Vargas on 03-31-2024 Monocytes/100 WBC (Bld) Automated monocyte % . [facility] Mucus [Presence] in Urine by AutomatedOrdered By: Jarad Vargas on 03-31-2024 Mucus Auto Ql (U) Mucus [Presence] in Urine by Automated [facility] Neutrophils Auto (Bld) [#/Vo l]Ordered By: Jarad Vargas on 03-31-2024 Neutrophils (Bld) [#/Vol] Neutrophils [#/volume] in Blood by Automated count 1.8-7.7 [facility] Neutrophils/100 WBC Auto (Bl d)Ordered By: Jarad Vargas on 03-31-2024 Neutrophils/100 WBC (Bld) Automated neutrophil % . [facility] Nitrite Test strip Ql (U)Ord ered By: Jarad Vargas on 03-31-2024 Nitrite Ql (U) Nitrite [Presence] i n Urine by Test strip Negative [facility] No Panel InformationOrdered By: Jarad Vargas on 03-31-2024 Estimated GFR (CKD-EPI) 48.060 mL/Min [facility] Creatinine Clearance (Chem 43.86 [facility] Nucleated erythrocytes [Pres ence] in Blood by Automated countOrdered By: Jarad Vargas on 03-31-2024 Nucleated RBC Auto Ql (Bld) Nucleated erythrocytes [Presence] in Blood by Automated count 0-0.5 [facility] Partial Thromboplastin Timeo n 03-31-2024 aPTT Coag (Bld) [Time] 28.6 s Normal 25.1-36.5 [facility] Comment on above: Result Comment: A he matocrit value greater than 55% may lead to inaccurate results in coagulation testing. Patients having hematocrit values >55% require a special collection tube for coagulation studies. Please contact the laboratory at [phone] for redraw instructions. PERFORMED BY: [facility] [address] [place] [id number] PATHOLOGIST PATIENT REGISTRATION CLERK CHUY OLIVERA M.D. Performed By: #### H S TROP, CUBLD, PTT, PT, [id number], [id number], LIPASE, TSH3, BMP, HEPATIC, CBC, CK, LACTIC ####[facility] [id number] [place] [address] [facility] Platelet mean volume Auto (B ld) [Entitic vol]Ordered By: Jarad Vargas on 03-31-2024 Platelet mean volume (Bld) [Entitic vol] Platelet mean volume [Entitic volume] in Blood by Automated count 6.3-10.7 [facility] Platelets Auto (Bld) [#/Vol] Ordered By: Jarad Vargas on 03-31-2024 Platelets (Bld) [#/Vol] Platelets [#/vol ume] in Blood by Automated count 150-450 [facility] Potassium [Moles/volume] in Serum or PlasmaOrdered By: Jarad Vargas on 03-31-2024 Potassium [Moles/Vol] Potassium [Moles/v olume] in Serum or Plasma 3.5-5.1 [facility] Protein Test strip (U) [Mass /Vol]Ordered By: Jarad Vargas on 03-31-2024 Protein (U) [Mass/Vol] Protein [Mass/vol ume] in Urine by Test strip Negative [facility] Protein [Mass/volume] in Ser um or PlasmaOrdered By: Jarad Vargas on 03-31-2024 Protein [Mass/Vol] Protein [Mass/volume ] in Serum or Plasma Low 6.4-8.9 [facility] Prothrombin Time INRon 03-31 INR Coag (PPP) [Relative time] 0.9 {INR} Normal [facility] Comment on above: Result Comment: [...] #### H S TROP, CUBLD, PTT, PT, [id number], [id number], LIPASE, TSH3, BMP, HEPATIC, CBC, CK, LACTIC ####[facility] [place] [id number] [facility] PT Coag (PPP) [Time] 10.9 s Normal 9.0-12.9 [facility] Comment on above: Result Comment: A he matocrit value greater than 55% may lead to inaccurate results in coagulation testing. Patients having hematocrit values >55% require a special collection tube for coagulation studies. Please contact the laboratory at [phone] for redraw instructions. Performed By: #### H S TROP, CUBLD, PTT, PT, [id number], [id number], LIPASE, TSH3, BMP, HEPATIC, CBC, CK, LACTIC ####[facility] [place] [id number] [facility] Prothrombin time (PT)Ordered By: Jarad Vargas on 03-31-2024 PT Coag (PPP) [Time] Prothrombin time (PT) 9.0- 12.9 [facility] Comment on above: A hematocrit value g reater than 55% may lead to inaccurate results in coagulation testing. Patients having hematocrit values >55% require a special collection tube for coagulation studies. Please contact the laboratory at [phone] for redraw instructions. RBC Auto (Bld) [#/Vol]Ordere d By: Jarad Vargas on 03-31-2024 RBC (Bld) [#/Vol] Erythrocytes [#/volu me] in Blood by Automated count 3.60-5.00 [facility] Serum or plasma albumin/glob ulin mass ratioOrdered By: Jarad Vargas on 03-31-2024 Albumin/Globulin [Mass ratio] Serum or plasma albumin/globulin mass ratio [facility] Serum or plasma anion gap de terminationOrdered By: Jarad Vargas on 03-31-2024 Anion gap [Moles/Vol] Serum or plasma an ion gap determination 6.0-15.0 [facility] Serum or plasma non-glucuron idated bilirubin measurement (mass/volume)Ordered By: Jarad Vargas on 03-31-2024 Bilirubin.indirect [Mass/Vol] Serum or plasma non-glucuronidated bilirubin measurement (mass/volume) [facility] Sodium [Moles/volume] in Ser um or PlasmaOrdered By: Jarad Vargas on 03-31-2024 Sodium [Moles/Vol] Sodium [Moles/volume ] in Serum or Plasma 136-145 [facility] Specific gravity Test strip (U) [Rel density]Ordered By: Jarad Vargas on 03-31-2024 Specific gravity (U) [Rel density] Specific gravity of Urine by Test strip 1.001-1.03 0 [facility] Thyroid Stimulating Hormoneo n 03-31-2024 TSH Qn 0.51 m[IU]/L Normal 0.45-5.33 [facility] [facility] Comment on above: Result Comment: PERF ORMED BY: [facility] [address] [facility] [place] [address] PATHOLOGIST PATIENT REGISTRATION CLERK CHUY OLIVERA M.D. Performed By: #### H S TROP, CUBLD, PTT, PT, [id number], [id number], LIPASE, TSH3, BMP, HEPATIC, CBC, CK, LACTIC ####[facility] [place] [address] [facility] Thyrotropin [Units/volume] i n Serum or PlasmaOrdered By: Jarad Vargas on 03-31-2024 TSH Qn Thyrotropin [Units/volume] in Serum or Plasma 0.45-5.33 [facility] Troponin I High Sensitivityo n 03-31-2024 Troponin I High Sensitivity 9.0 pg/mL Normal 0.0-15.0 [facility] Comment on above: Result Comment: PERF ORMED BY: [place] [address] PATHOLOGIST PATIENT REGISTRATION CLERK CHUY OLIVERA M.D. Performed By: #### H S TROP, CUBLD, PTT, PT, [id number], [id number], LIPASE, TSH3, BMP, HEPATIC, CBC, CK, LACTIC ####[facility] [id number] Troponin I.cardiac [Mass/vol ume] in Serum or Plasma by Detection limit <= 0.01 ng/Ordered By: Jarad Vargas on 03-31-2024 Troponin I.cardiac DL <= 0.01 ng/mL [Mass/Vol] Troponin I.cardiac [Mass/volume] in Serum or Plasma by Detection limit <= 0.01 ng/ 0.0-15.0 [facility] Urea nitrogen [Mass/volume] in Serum or PlasmaOrdered By: Jarad Vargas on 03-31-2024 Urea nitrogen [Mass/Vol] Urea nitrogen [Mass/volume] in Serum or Plasma 7-25 [facility] Urine Cultureon 03-31-2024 Bacteria identified Cx Nom (U) No Growth 2 Days PERFORMED BY: [place] [address] PATHOLOGIST PATIENT REGISTRATION CLERK CHUY OLIVERA M.D. Normal [facility] Comment on above: Performed By: #### A DDONUAPLUS, CUU #### [facility] [address] [place] [id number] [facility] Urine cultureOrdered By: Nidia Vargas on 03-31-2024 Bacteria identified Cx Nom (U) Urine culture [facility] Urobilinogen Test strip (U) [Mass/Vol]Ordered By: Jarad Vargas on 03-31-2024 Urobilinogen (U) [Mass/Vol] Urobilinogen [Mass/volume] in Urine by Test strip Normal [facility] Vit. B12/Folate Profileon Cobalamin (Vitamin B12) [Mass/Vol] 1038 pg/mL High 180-914 [facility] Comment on above: Performed By: #### H S TROP, CUBLD, PTT, PT, [id number], [id number], LIPASE, TSH3, BMP, HEPATIC, CBC, CK, LACTIC ####[facility] [place] [id number] [facility] Folate 37.0 ng/mL Normal >5.9 [facility] Comment on above: Result Comment: Kae te reference range: >5.9 ng/ml The WHO technical consultation on folate and vitamin b12 deficiencies has determined that folate concentrations less than 4 ng/ml are considered deficient. Performed By: #### H S TROP, CUBLD, PTT, PT, [id number], [id number], LIPASE, TSH3, BMP, HEPATIC, CBC, CK, LACTIC ####[place] [address] [place] [id number] [facility] Vitamin B12 ser/plasOrdered By: Rosendo Law on 03-31-2024 Cobalamin (Vitamin B12) [Mass/Vol] Vitamin B12 ser/plas High 180-914 [facility] Vitamin D 25 Hydroxy Totalon 03-31-2024 Vitamin D 25 Hydroxy Total 77.3 ng/mL Normal 30-100 [facility] Comment on above: Result Comment: SHARDA MIN D STATUS 25(OH)VITAMIN D RANGE (ng/mL) Deficient <20 Insufficient 20 to <30 Sufficient 30 to 100 Reference: Maida MF,Laura NC, Aliyah SHIN, et al. Evaluation,treatment, and prevention of vitamin D deficiency; an Endocrine Society clinical practice guideline. JCEM. 2010; 96(7):1911-30. PERFORMED BY: [facility] [address] [place] [id number] PATHOLOGIST PATIENT REGISTRATION CLERK CHUY OLIVERA M.D. Performed By: #### H S TROP, CUBLD, PTT, PT, [id number], [id number], LIPASE, TSH3, BMP, HEPATIC, CBC, CK, LACTIC ####[facility] [id number] [place] [id number] [facility] Vitamin D+Metabolites [Mass/ volume] in Serum or PlasmaOrdered By: Rosendo Law on 03-31-2024 Vitamin D+Metabolites [Mass/Vol] Vitamin D+Metabolites [Mass/volume] in Serum or Plasma 30-100 [facility] Comment on above: VITAMIN D STATUS 25( OH)VITAMIN D RANGE (ng/mL) Deficient <20 Insufficient 20 to <30Sufficient 30 to 100Reference: Maida MF,Laura NC, Aliyah SHIN, et al. Evaluation,treatment, and prevention of vitamin D deficiency; an Endocrine Society clinical practice guideline. JCEM. 2010; 96(7):1911-30. WBC Auto (Bld) [#/Vol]Ordere d By: Jarad Vargas on 03-31-2024 WBC (Bld) [#/Vol] Leukocytes [#/volume ] in Blood by Automated count 3.8-11.6 [facility] X-ray reportOrdered By: Armin Caraballo on 03-31-2024 Study report [facility] [address] [place] [address] [place] [address] XRay Report Signed Patient: Aaron Lewis MR#: [id number] : 1945 Acct:[id number] Age/Sex: 79 / F ADM Date: 4 Loc: ER Room: Type: [facility] ER Attending Dr: Copies to: Jarad [...] SUGGEST PNEUMONIA. Impression dictated by: Ray Caraballo Jr., D.OCarlos03/31/2024 9:38 AM Dictation Location: RADIO-PC-23 Transcribed By: PRECIOUS 03/31/24937 Dictated By: Ray Caraballo Jr, DO 03/31/24937 Signed By: 03/31/24937 [facility] XR chest 2V*on 03-31-2024 XR chest 2V* [facility] [address] [place] [address] [place] [address] XRay Report Signed Patient: Aaron Lewis MR#: [id number] : 1945 Acct:[id number] Age/Sex: 79 / F ADM Date: 03/31/24 Loc: ER Room: Type: [facility] ER Attending Dr: Copies to: Jarad [...] SUGGEST PNEUMONIA. Impression dictated by: Ray Caraballo Jr., D.O.03/31/2024 9:38 AM Dictation Location: [place] [address] Transcribed By: PRECIOUS 03/31/24937 Dictated By: Ray Caraballo Jr, DO 03/31/24937 Signed By: 03/31/24937 Normal [facility] aPTT in Platelet poor plasma by Coagulation assayOrdered By: Jarad Vargas on 03-31-2024 aPTT Coag (PPP) [Time] Activated partial thromboplastin time (aPTT) in platelet poor plasma by coagulation a 25.1-36.5 [facility] Comment on above: A hematocrit value g reater than 55% may lead to inaccurate results in coagulation testing. Patients having hematocrit values >55% require a special collection tube for coagulation studies. Please contact the laboratory at [phone] for redraw instructions. pH Test strip (U)Ordered By: Jarad Vargas on 03-31-2024 pH (U) pH of Urine by Test strip 5.0-9.0 [facility] Alanine aminotransferase [En zymatic activity/volume] in Serum or PlasmaOrdered By: Elder Garcia on 03-23-2024 ALT [Catalytic activity/Vol] Alanine aminotransferase [Enzymatic activity/volume] in Serum or Plasma 7-52 [facility] Albumin [Mass/volume] in Ser um or Plasma by Bromocresol green (BCG) dye binding methoOrdered By: Elder Garcia on 03-23-2024 Albumin BCG dye [Mass/Vol] Albumin [Mass/volume] in Serum or Plasma by Bromocresol green (BCG) dye binding metho 3.5-5.7 [facility] Alkaline phosphatase [Enzyma tic activity/volume] in Serum or PlasmaOrdered By: Elder Garcia on 03-23-2024 ALP [Catalytic activity/Vol] Alkaline phosphatase [Enzymatic activity/volume] in Serum or Plasma 34-104 [facility] Appearance of UrineOrdered B y: Elder Garcia on 03-23-2024 Appearance (U) Urine appearance Abnormal Clear [facility] Aspartate aminotransferase [ Enzymatic activity/volume] in Serum or PlasmaOrdered By: Elder Garcia on 03-23-2024 AST [Catalytic activity/Vol] Aspartate aminotransferase [Enzymatic activity/volume] in Serum or Plasma 13-39 [facility] Bacteria [Presence] in Urine by AutomatedOrdered By: Elder Garcia on 03-23-2024 Bacteria Auto Ql (U) Bacteria [Presence] in Urine by Automated High None Seen [facility] Basophils Auto (Bld) [#/Vol] Ordered By: Elder Garcia 03-23-2024 Basophils (Bld) [#/Vol] Automated basophil count 0.0-0.2 [facility] Basophils/100 WBC Auto (Bld) Ordered By: Elder Garcia on 03-23-2024 Basophils/100 WBC (Bld) Automated basophil % . [facility] Bilirubin Test strip Ql (U)O rdered By: Elder Garcia on 03-23-2024 Bilirubin Ql (U) Bilirubin.total [Presence] in Urine by Test strip Negative [facility] Bilirubin.direct [Mass/volum e] in Serum or PlasmaOrdered By: Elder Garcia on 03-23-2024 Bilirubin.direct [Mass/Vol] Bilirubin.direct [Mass/volume] in Serum or Plasma 0.03-0.18 [facility] Bilirubin.total [Mass/volume ] in Serum or PlasmaOrdered By: Elder Garcia on 03-23-2024 Bilirubin [Mass/Vol] Bilirubin.total [Mass/volume] in Serum or Plasma 0.3-1.0 [facility] Calcium [Mass/volume] in Ser um or PlasmaOrdered By: Elder Garcia on 03-23-2024 Calcium [Mass/Vol] Calcium [Mass/volume ] in Serum or Plasma 8.6-10.3 [facility] Carbon dioxide, total [Moles /volume] in Serum or PlasmaOrdered By: Elder Garcia on 03-23-2024 CO2 [Moles/Vol] Carbon dioxide, tota l [Moles/volume] in Serum or Plasma 21.0-31.0 [facility] Chloride [Moles/volume] in S alison or PlasmaOrdered By: Elder Garcia on 03-23-2024 Chloride [Moles/Vol] Chloride [Moles/vol ume] in Serum or Plasma 98-107 [facility] Color Auto (U)Ordered By: Arnaldo Garcia on 03-23-2024 Color (U) Color of Urine by Auto Yellow [facility] Blood Count Auto Di ffon 03-23-2024 Basophils (Bld) [#/Vol] 0.1 10*3/uL Normal 0.0-0.2 [facility] Comment on above: Result Comment: PERF ORMED BY: [place] [address] PATHOLOGIST PATIENT REGISTRATION CLERK LAZARA TERAN M.D. Performed By: #### C MP, LIPASE, CBC, CK, HEPATIC, HS TROP #### [facility] [address] [place] [address] [place] Basophils/100 WBC (Bld) 0.9 % Normal . [facility] Comment on above: Performed By: #### C MP, LIPASE, CBC, CK, HEPATIC, HS TROP #### [facility] [address] [place] [id number] [place] Eosinophils (Bld) [#/Vol] 0.1 10*3/uL Normal 0.0-0.45 [facility] Comment on above: Performed By: #### C MP, LIPASE, CBC, CK, HEPATIC, HS TROP #### [address] Eosinophils/100 WBC (Bld) 0.9 % Normal . [facility] Comment on above: Performed By: #### C MP, LIPASE, CBC, CK, HEPATIC, HS TROP #### [address] Erythrocyte distribution width (RBC) [Ratio] 17.8 % High 11.9-15.3 [facility] Comment on above: Performed By: #### C MP, LIPASE, CBC, CK, HEPATIC, HS TROP #### [address] Hematocrit (Bld) [Volume fraction] 44.4 % Normal 34.0-46.4 [facility] Comment on above: Performed By: #### C MP, LIPASE, CBC, CK, HEPATIC, HS TROP #### [address] Hemoglobin (Bld) [Mass/Vol] 14.7 g/dL Normal 11.8-15.4 [facility] Comment on above: Performed By: #### C MP, LIPASE, CBC, CK, HEPATIC, HS TROP #### [address] Lymphocytes (Bld) [#/Vol] 1.1 10*3/uL Normal 1.00-4.8 [facility] Comment on above: Performed By: #### C MP, LIPASE, CBC, CK, HEPATIC, HS TROP #### [address] Lymphocytes/100 WBC (Bld) 12.7 % Normal . [facility] Comment on above: Performed By: #### C MP, LIPASE, CBC, CK, HEPATIC, HS TROP #### [address] MCH (RBC) [Entitic mass] 30.7 pg Normal 24.7-34.3 [facility] Comment on above: Performed By: #### C MP, LIPASE, CBC, CK, HEPATIC, HS TROP #### [address] MCV (RBC) [Entitic vol] 93.1 fL Normal 80-100 [facility] Comment on above: Performed By: #### C MP, LIPASE, CBC, CK, HEPATIC, HS TROP #### [address] Mean Corpuscular HGB Conc 33.0 g/dL Normal 32.0-35.0 [facility] Comment on above: Performed By: #### C MP, LIPASE, CBC, CK, HEPATIC, HS TROP #### [address] Monocytes (Bld) [#/Vol] 0.6 10*3/uL Normal 0.0-0.8 [facility] Comment on above: Performed By: #### C MP, LIPASE, CBC, CK, HEPATIC, HS TROP #### [address] Monocytes/100 WBC (Bld) 19.41 % Normal 0.00-20.00 [facility] Comment on above: Performed By: #### C MP, LIPASE, CBC, CK, HEPATIC, HS TROP #### [address] Monocytes/100 WBC (Bld) 7.0 % Normal . [facility] Comment on above: Performed By: #### C MP, LIPASE, CBC, CK, HEPATIC, HS TROP #### [address] Neutrophils (Bld) [#/Vol] 6.9 10*3/uL Normal 1.8-7.7 [facility] Comment on above: Performed By: #### C MP, LIPASE, CBC, CK, HEPATIC, HS TROP #### [address] Neutrophils/100 WBC (Bld) 78.5 % Normal . [facility] Comment on above: Performed By: #### C MP, LIPASE, CBC, CK, HEPATIC, HS TROP #### [address] NRBC% 0.0 /100{WBC} Normal 0-0.5 [facility] Comment on above: Performed By: #### C MP, LIPASE, CBC, CK, HEPATIC, HS TROP #### [address] Platelet mean volume (Bld) [Entitic vol] 9.2 fL Normal 6.3-10.7 [facility] Comment on above: Performed By: #### C MP, LIPASE, CBC, CK, HEPATIC, HS TROP #### [address] Platelets (Bld) [#/Vol] 271 10*3/uL Normal 150-450 [facility] Comment on above: Performed By: #### C MP, LIPASE, CBC, CK, HEPATIC, HS TROP #### [address] RBC (Bld) [#/Vol] 4.78 10*6/uL Normal 3.60-5.00 [facility] Comment on above: Performed By: #### C MP, LIPASE, CBC, CK, HEPATIC, HS TROP #### [address] WBC (Bld) [#/Vol] 8.8 10*3/uL Normal 3.8-11.6 [facility] Comment on above: Performed By: #### C MP, LIPASE, CBC, CK, HEPATIC, HS TROP #### [address] Comprehensive Metabolic Pane meagan 03-23-2024 Albumin [Mass/Vol] 3.7 g/dL Normal 3.5-5.7 [facility] Comment on above: Performed By: #### C MP, LIPASE, CBC, CK, HEPATIC, HS TROP ####[facility] [place] [address] Albumin/Globulin [Mass ratio] 1.5 {ratio} Normal [facility] Comment on above: Performed By: #### C MP, LIPASE, CBC, CK, HEPATIC, HS TROP ####[address] ALP [Catalytic activity/Vol] 61 U/L Normal 34-104 [facility] Comment on above: Performed By: #### C MP, LIPASE, CBC, CK, HEPATIC, HS TROP ####[address] ALT [Catalytic activity/Vol] 18 U/L Normal 7-52 [facility] Comment on above: Performed By: #### C MP, LIPASE, CBC, CK, HEPATIC, HS TROP ####[address] Anion gap [Moles/Vol] 13.3 mmol/L Normal 6.0-15.0 [facility] e [facility] Comment on above: Performed By: #### C MP, LIPASE, CBC, CK, HEPATIC, HS TROP ####[address] AST [Catalytic activity/Vol] 15 U/L Normal 13-39 [facility] Comment on above: Performed By: #### C MP, LIPASE, CBC, CK, HEPATIC, HS TROP ####[address] Bilirubin [Mass/Vol] 0.5 mg/dL Normal 0.3-1.0 [facility] Comment on above: Performed By: #### C MP, LIPASE, CBC, CK, HEPATIC, HS TROP ####[address] Calcium [Mass/Vol] 9.2 mg/dL Normal 8.6-10.3 [facility] Comment on above: Performed By: #### C MP, LIPASE, CBC, CK, HEPATIC, HS TROP ####[address] Chloride [Moles/Vol] 106 mmol/L Normal 98-107 [facility] Comment on above: Performed By: #### C MP, LIPASE, CBC, CK, HEPATIC, HS TROP ####[address] CO2 [Moles/Vol] 24.5 mmol/L Normal 21.0-31.0 [facility] Comment on above: Performed By: #### C MP, LIPASE, CBC, CK, HEPATIC, HS TROP ####[address] Creatinine [Mass/Vol] 1.04 mg/dL Normal 0.60-1.20 [facility] Comment on above: Performed By: #### C MP, LIPASE, CBC, CK, HEPATIC, HS TROP ####[address] Creatinine Clr Calc Pharmacy 44.72 Normal [facility] Comment on above: Performed By: #### C MP, LIPASE, CBC, CK, HEPATIC, HS TROP ####[address] GFR/1.73 sq M.predicted MDRD (S/P/Bld) [Vol rate/Area] 55.356 mL/min/{1.73_m2} Normal [facility] Comment on above: Performed By: #### C MP, LIPASE, CBC, CK, HEPATIC, HS TROP ####[address] Globulin (S) [Mass/Vol] 2.4 g/dL Normal T [facility] Comment on above: Performed By: #### C MP, LIPASE, CBC, CK, HEPATIC, HS TROP ####[address] Glucose [Mass/Vol] 102 mg/dL High 70-100 [facility] Comment on above: Result Comment: [place] Glucose Reference Range is dependent on time and content of last meal. Glucose of more than 200 mg/dL in a nonstressed, ambulatory subject supports the diagnosis of Diabetes Mellitus. ADA recommended reference range Performed By: #### C MP, LIPASE, CBC, CK, HEPATIC, HS TROP ####[address] Potassium [Moles/Vol] 3.8 mmol/L Normal 3.5-5.1 [facility] Comment on above: Performed By: #### C MP, LIPASE, CBC, CK, HEPATIC, HS TROP ####[address] Protein [Mass/Vol] 6.1 g/dL Low 6.4-8.9 [facility] Comment on above: Performed By: #### C MP, LIPASE, CBC, CK, HEPATIC, HS TROP ####[address] Sodium [Moles/Vol] 140 mmol/L Normal 136-145 [facility] Comment on above: Performed By: #### C MP, LIPASE, CBC, CK, HEPATIC, HS TROP ####[address] Urea nitrogen [Mass/Vol] 19 mg/dL Normal 7-25 [facility] Comment on above: Performed By: #### C MP, LIPASE, CBC, CK, HEPATIC, HS TROP ####[place] [id number] [facility] Creatine Kinaseon 03-23-2024 CK [Catalytic activity/Vol] 22 U/L Low 30-223 [facility] Comment on above: Performed By: #### C MP, LIPASE, CBC, CK, HEPATIC, HS TROP ####[address] Creatine kinase [Enzymatic a ctivity/volume] in Serum or PlasmaOrdered By: Elder Garcia on 03-23-2024 CK [Catalytic activity/Vol] Creatine kinase [Enzymatic activity/volume] in Serum or Plasma Low 30-223 [facility] Creatinine [Mass/volume] in Serum or PlasmaOrdered By: Elder Garcia on 03-23-2024 Creatinine [Mass/Vol] Creatinine [Mass/v olume] in Serum or Plasma 0.60-1.20 [facility] Dipstick and Microscopicon 1 05-23-2023 Appearance (U) Cloudy Critically abnormal Clear [facility] Comment on above: Order Comment: Name Collection Type:: Clean-Voided Midstream Performed By: #### A DDONUAPLUS, CUU ####[address] Bacteria,Urine 1+ High None Seen [facility] Comment on above: Order Comment: Name Collection Type:: Clean-Voided Midstream Performed By: #### A DDONUAPLUS, CUU ####[address] Bilirubin,Urine Negative Normal Negative [facility] Comment on above: Order Comment: Name Collection Type:: Clean-Voided Midstream Performed By: #### A DDONUAPLUS, CUU ####[address] Color (U) Yellow Normal Yellow [facility] Comment on above: Order Comment: Name Collection Type:: Clean-Voided Midstream Performed By: #### A DDONUAPLUS, CUU ####[address] Glucose Ql (U) Normal Normal Normal [facility] Comment on above: Order Comment: Name Collection Type:: Clean-Voided Midstream Performed By: #### A DDONUAPLUS, CUU ####[address] Hyaline Casts,Urine 9 [LPF] High 0-8 [facility] Comment on above: Order Comment: Name Collection Type:: Clean-Voided Midstream Performed By: #### A DDONUAPLUS, CUU ####[address] Ketones Ql (U) 1+ High Negative [facility] Comment on above: Order Comment: Name Collection Type:: Clean-Voided Midstream Performed By: #### A DDONUAPLUS, CUU ####[address] Leukocyte esterase Test strip Ql (U) 4+ High Negative [facility] Comment on above: Order Comment: Name Collection Type:: Clean-Voided Midstream Performed By: #### A DDONUAPLUS, CUU ####[address] [address] [facility] Mucus,Urine 1+ Critically abnormal [facility] Comment on above: Order Comment: Name Collection Type:: Clean-Voided Midstream Result Comment: PERF ORMED BY: [facility] [address] [place] [address] PATHOLOGIST PATIENT REGISTRATION CLERK LAZARA TERAN M.D. Performed By: #### A DDONUAPLUS, CUU ####[place] [id number] [facility] Nitrite,Urine Positive High Negative [facility] Comment on above: Order Comment: Name Collection Type:: Clean-Voided Midstream Performed By: #### A DDONUAPLUS, CUU ####[place] [id number] [facility] Occult Blood,Urine Negative Normal Negative [facility] Comment on above: Order Comment: Name Collection Type:: Clean-Voided Midstream Result Comment: PERF ORMED BY: [facility] [address] [place] [address] PATHOLOGIST PATIENT REGISTRATION CLERK LAZARA TERAN M.D. Performed By: #### A DDONUAPLUS, CUU ####[place] [id number] [facility] pH (U) 5.5 [pH] Normal 5.0-9.0 [facility] Comment on above: Order Comment: Name Collection Type:: Clean-Voided Midstream Performed By: #### A DDONUAPLUS, CUU ####[place] [id number] [facility] Protein (U) [Mass/Vol] 20 mg/dL High Negative Th e [facility] Comment on above: Order Comment: Name Collection Type:: Clean-Voided Midstream Performed By: #### A DDONUAPLUS, CUU ####[place] [id number] [facility] RBC,Urine 5 [HPF] High 0-4 [facility] Comment on above: Order Comment: Name Collection Type:: Clean-Voided Midstream Performed By: #### A DDONUAPLUS, CUU ####[address] Specificy [place],Urine 1.021 Normal 1.00 1-1.03 0 [facility] Comment on above: Order Comment: Name Collection Type:: Clean-Voided Midstream Performed By: #### A DDONUAPLUS, CUU ####[address] Squamous Epithelial Cell,Urine 1 [HPF] Normal 0-2 [facility] Comment on above: Order Comment: Name Collection Type:: Clean-Voided Midstream Performed By: #### A DDONUAPLUS, CUU ####[address] Urobilinogen,Urine 2 mg/dL High Normal [facility] Comment on above: Order Comment: Name Collection Type:: Clean-Voided Midstream Performed By: #### A DDONUAPLUS, CUU ####[address] WBC CLUMP, Urine Many High None Seen [facility] Comment on above: Order Comment: Name Collection Type:: Clean-Voided Midstream Performed By: #### A DDONUAPLUS, CUU ####[place] [id number] [facility] WBC,Urine Innumerable High 0-4 [facility] Comment on above: Order Comment: Name Collection Type:: Clean-Voided Midstream Performed By: #### A DDONUAPLUS, CUU ####[place] [id number] [facility] ECG 12 lead ECGon 03-23-2024 ECG 12 lead ECG [facility] [address] [place] [address] [place] [address] Electrocardiograph Report Signed Patient: Aaron Lewis MR#: [id number] : 1945 Acct:[id number] Age/Sex: 79 / F ADM Date: 03/23/24 Loc: ER Room: Type: DEP ER Attending Dr: Ordering Provider: Elder Garcia [...] Anterolateral leads Confirmed by SHUKRI VELAZQUEZ DO ([id number]) on 03/23/2024 8:20:13 PM Referred By: Electronically Signed By: SHURKI VELAZQUEZ DO Transcribed By: MUS Signed By Shukri Velazquez DO 03/23 Normal [facility] Eosinophils Auto (Bld) [#/Vo l]Ordered By: Elder Garcia on 03-23-2024 Eosinophils (Bld) [#/Vol] Automated eosinophil count 0.0-0.45 [facility] Eosinophils/100 WBC Auto (Bl d)Ordered By: Elder Garcia on 03-23-2024 Eosinophils/100 WBC (Bld) Automated eosinophil % . [facility] Epithelial cells.squamous [# /area] in Urine sediment by Automated countOrdered By: Elder Garcia on 03-23-2024 Epithelial cells.squamous Auto (Urine sed) [#/Area] Epithelial cells.squamous [#/area] in Urine sediment by Automated count 0-2 [facility] Erythrocyte distribution wid th Auto (RBC) [Ratio]Ordered By: Elder Garcia on 03-23-2024 Erythrocyte distribution width (RBC) [Ratio] Erythrocyte distribution width [Ratio] by Automated count High 11.9-15.3 [facility] Erythrocytes [#/area] in Uri ne sediment by Automated countOrdered By: Elder Garcia on 03-23-2024 RBC Auto (Urine sed) [#/Area] Erythrocytes [#/area] in Urine sediment by Automated count High 0-4 [facility] Globulin Calc (S) [Mass/Vol] Ordered By: Elder Garcia on 03-23-2024 Globulin (S) [Mass/Vol] Serum globulin measurement by calculation (mass/volume) [facility] Glucose [Mass/volume] in Ser um or PlasmaOrdered By: Elder Garcia on 03-23-2024 Glucose [Mass/Vol] Glucose [Mass/volume ] in Serum or Plasma High 70-100 [facility] Comment on above: ADA recommended refe rence rangeRandom Glucose Reference Range is dependent on time and content of last meal. Glucose of more than 200 mg/dL in a nonstressed, ambulatory subject supports the diagnosis of Diabetes Mellitus. Glucose [Mass/volume] in Uri ne by Test stripOrdered By: Elder Garcia on 03-23-2024 Glucose Test strip (U) [Mass/Vol] Glucose [Mass/volume] in Urine by Test strip Normal [facility] Hematocrit Auto (Bld) [Volum e fraction]Ordered By: Elder Garcia on 03-23-2024 Hematocrit (Bld) [Volume fraction] Hematocrit [Volume Fraction] of Blood by Automated count 34.0-46.4 [facility] Hemoglobin Test strip Ql (U) Ordered By: Elder Garcia on 03-23-2024 Hemoglobin Ql (U) Hemoglobin [Presence ] in Urine by Test strip Negative [facility] Hemoglobin [Mass/volume] in BloodOrdered By: Elder Garcia on 03-23-2024 Hemoglobin (Bld) [Mass/Vol] Hemoglobin [Mass/volume] in Blood 11.8-15.4 [facility] Hepatic Panelon 03-23-2024 Bilirubin,Indirect 0.4 mg/dL Normal [facility] Comment on above: Performed By: #### C MP, LIPASE, CBC, CK, HEPATIC, HS TROP ####[facility] [id number] Bilirubin.indirect [Mass/Vol] 0.10 mg/dL Normal 0.03-0.18 [facility] Comment on above: Performed By: #### C MP, LIPASE, CBC, CK, HEPATIC, HS TROP ####[facility] [id number] Hyaline casts [#/area] in Ur ine sediment by Automated countOrdered By: Elder Garcia on 03-23-2024 Hyaline casts Auto (Urine sed) [#/Area] Hyaline casts [#/area] in Urine sediment by Automated count High 0-8 [facility] Ketones Test strip Ql (U)Ord ered By: Elder Garcia on 03-23-2024 Ketones Ql (U) Ketones [Presence] i n Urine by Test strip High Negative [facility] Leukocyte clumps [Presence] in Urine by AutomatedOrdered By: Elder Garcia on 03-23-2024 Leukocyte clumps Auto Ql (U) Leukocyte clumps [Presence] in Urine by Automated High None Seen [facility] Leukocyte esterase [Presence ] in Urine by Test stripOrdered By: Elder Garcia on 03-23-2024 Leukocyte esterase Test strip Ql (U) Leukocyte esterase [Presence] in Urine by Test strip High Negative [facility] Leukocytes [#/area] in Urine sediment by Automated countOrdered By: Elder Garcia on 03-23-2024 WBC Auto (Urine sed) [#/Area] Leukocytes [#/area] in Urine sediment by Automated count High 0-4 [facility] Leukocytes [#/volume] correc kyleigh for nucleated erythrocytes in Blood by Automated counOrdered By: Elder Garcia on 03-23-2024 WBC corrected for nucl RBC Auto (Bld) [#/Vol] Leukocytes [#/volume] corrected for nucleated erythrocytes in Blood by Automated coun 3.8-11.6 [facility] Lipaseon 03-23-2024 Lipase [Catalytic activity/Vol] 23.0 U/L Normal 11.0-82.0 [facility] Comment on above: Result Comment: PERF ORMED BY: [facility] [address] [place] [address] PATHOLOGIST PATIENT REGISTRATION CLERK LAZARA TERAN M.D. Performed By: #### C MP, LIPASE, CBC, CK, HEPATIC, HS TROP ####[facility] [id number] [place] [address] [facility] Lipase [Enzymatic activity/v olume] in Serum or PlasmaOrdered By: Elder Garcia on 03-23-2024 Lipase [Catalytic activity/Vol] Lipase [Enzymatic activity/volume] in Serum or Plasma 11.0-82.0 [facility] Lymphocytes Auto (Bld) [#/Vo l]Ordered By: Elder Garcia on 03-23-2024 Lymphocytes (Bld) [#/Vol] Lymphocytes [#/volume] in Blood by Automated count 1.00-4.8 [facility] Lymphocytes/100 WBC Auto (Bl d)Ordered By: Elder Garcia on 03-23-2024 Lymphocytes/100 WBC (Bld) Lymphocytes/100 leukocytes in Blood by Automated count . [facility] MCH Auto (RBC) [Entitic mass ]Ordered By: Elder Garcia on 03-23-2024 MCH (RBC) [Entitic mass] MCH [Entitic mass] by Automated count 24.7-34.3 [facility] MCHC Auto (RBC) [Mass/Vol]Or dered By: Elder Garcia on 03-23-2024 MCHC (RBC) [Mass/Vol] MCHC [Mass/volume] by Automated count 32.0-35.0 [facility] MCV Auto (RBC) [Entitic vol] Ordered By: Elder Garcia on 03-23-2024 MCV (RBC) [Entitic vol] MCV [Entitic vol ume] by Automated count 80-100 [facility] Monocyte distribution width [Entitic volume] in Blood by AutomatedOrdered By: Elder Garcia on 03-23-2024 Monocyte distribution width Auto (Bld) [Entitic vol] Monocyte distribution width [Entitic volume] in Blood by Automated 0.00-20.00 [facility] Monocytes Auto (Bld) [#/Vol] Ordered By: Elder Garcia on 03-23-2024 Monocytes (Bld) [#/Vol] Automated blood monocyte count 0.0-0.8 [facility] Monocytes/100 WBC Auto (Bld) Ordered By: Elder Garcia on 03-23-2024 Monocytes/100 WBC (Bld) Automated monocyte % . [facility] Mucus [Presence] in Urine by AutomatedOrdered By: Elder Garcia on 03-23-2024 Mucus Auto Ql (U) Mucus [Presence] in Urine by Automated Abnormal [facility] Neutrophils Auto (Bld) [#/Vo l]Ordered By: Elder Garcia on 03-23-2024 Neutrophils (Bld) [#/Vol] Neutrophils [#/volume] in Blood by Automated count 1.8-7.7 [facility] Neutrophils/100 WBC Auto (Bl d)Ordered By: Elder Garcia on 03-23-2024 Neutrophils/100 WBC (Bld) Automated neutrophil % . [facility] Nitrite Test strip Ql (U)Ord ered By: Elder Garcia on 03-23-2024 Nitrite Ql (U) Nitrite [Presence] i n Urine by Test strip High Negative [facility] No Panel InformationOrdered By: Elder Garcia on 03-23-2024 Estimated GFR (CKD-EPI) 55.356 mL/Min [facility] Creatinine Clearance (Chem 44.72 [facility] Nucleated erythrocytes [Pres ence] in Blood by Automated countOrdered By: Elder Garcia on 03-23-2024 Nucleated RBC Auto Ql (Bld) Nucleated erythrocytes [Presence] in Blood by Automated count 0-0.5 [facility] Platelet mean volume Auto (B ld) [Entitic vol]Ordered By: Elder Garcia on 03-23-2024 Platelet mean volume (Bld) [Entitic vol] Platelet mean volume [Entitic volume] in Blood by Automated count 6.3-10.7 [facility] Platelets Auto (Bld) [#/Vol] Ordered By: Elder Garcia 03-23-2024 Platelets (Bld) [#/Vol] Platelets [#/vol ume] in Blood by Automated count 150-450 [facility] Potassium [Moles/volume] in Serum or PlasmaOrdered By: Elder Garcia 03-23-2024 Potassium [Moles/Vol] Potassium [Moles/v olume] in Serum or Plasma 3.5-5.1 [facility] Protein Test strip (U) [Mass /Vol]Ordered By: Elder Garcia on 03-23-2024 Protein (U) [Mass/Vol] Protein [Mass/vol ume] in Urine by Test strip High Negative [facility] Protein [Mass/volume] in Ser um or PlasmaOrdered By: Elder Garcia 03-23-2024 Protein [Mass/Vol] Protein [Mass/volume ] in Serum or Plasma Low 6.4-8.9 [facility] RBC Auto (Bld) [#/Vol]Ordere d By: Elder Garcia on 03-23-2024 RBC (Bld) [#/Vol] Erythrocytes [#/volu me] in Blood by Automated count 3.60-5.00 [facility] Serum or plasma albumin/glob ulin mass ratioOrdered By: Elder Garcia on 03-23-2024 Albumin/Globulin [Mass ratio] Serum or plasma albumin/globulin mass ratio [facility] Serum or plasma anion gap de terminationOrdered By: Elder Garcia on 03-23-2024 Anion gap [Moles/Vol] Serum or plasma an ion gap determination 6.0-15.0 [facility] Serum or plasma non-glucuron idated bilirubin measurement (mass/volume)Ordered By: Elder Garcia on 03-23-2024 Bilirubin.indirect [Mass/Vol] Serum or plasma non-glucuronidated bilirubin measurement (mass/volume) [facility] Sodium [Moles/volume] in Ser um or PlasmaOrdered By: Elder Garcia on 03-23-2024 Sodium [Moles/Vol] Sodium [Moles/volume ] in Serum or Plasma 136-145 [facility] Specific gravity Test strip (U) [Rel density]Ordered By: Elder Garcia on 03-23-2024 Specific gravity (U) [Rel density] Specific gravity of Urine by Test strip 1.001-1.03 0 [facility] Troponin I High Sensitivityo n 03-23-2024 Troponin I High Sensitivity 9.3 pg/mL Normal 0.0-15.0 [facility] Comment on above: Result Comment: PERF ORMED BY: [facility] [address] [place] [address] PATHOLOGIST PATIENT REGISTRATION CLERK LAZARA TERAN M.D. Performed By: #### C MP, LIPASE, CBC, CK, HEPATIC, HS TROP ####[facility] [id number] [place] [address] [facility] Troponin I.cardiac [Mass/vol ume] in Serum or Plasma by Detection limit <= 0.01 ng/Ordered By: Elder Garcia on 03-23-2024 Troponin I.cardiac DL <= 0.01 ng/mL [Mass/Vol] Troponin I.cardiac [Mass/volume] in Serum or Plasma by Detection limit <= 0.01 ng/ 0.0-15.0 [facility] Urea nitrogen [Mass/volume] in Serum or PlasmaOrdered By: Elder Garcia on 03-23-2024 Urea nitrogen [Mass/Vol] Urea nitrogen [Mass/volume] in Serum or Plasma 7-25 [facility] Urine Cultureon 03-23-2024 Bacteria identified Cx Nom (U) ORGANISM: Escherichia coli (O:ESCCOL) [place] Count >100,000 Aerobic DARIUS Charge (NMIC56) SUSCEPTIBILITY [...] <4 Tigecycline S <2 Tobramycin S <2 Trimethoprim/Sulfamethoxa zole S <0.5 S = SUSCEPTIBLE I = [...] RESISTANT TO ALL B-LACTAM DRUGS. PERFORMED BY: [facility] Kristina MCINTYRECarlos [place] [id number] PATHOLOGIST PATIENT REGISTRATION CLERK LAZARA TERAN M.D. Normal [facility] Comment on above: Performed By: #### A KAYLA ROSS ####[facility] [id number] [place] [id number] [facility] Urine cultureOrdered By: Babak Garcia on 03-23-2024 Bacteria identified Cx Nom (U) Escherichia coli Abnormal [facility] Urobilinogen Test strip (U) [Mass/Vol]Ordered By: Elder Garcia on 03-23-2024 Urobilinogen (U) [Mass/Vol] Urobilinogen [Mass/volume] in Urine by Test strip High Normal [facility] WBC Auto (Bld) [#/Vol]Ordere d By: Elder Garcia on 03-23-2024 WBC (Bld) [#/Vol] Leukocytes [#/volume ] in Blood by Automated count 3.8-11.6 [facility] X-ray reportOrdered By: Peyton Gatica on 03-23-2024 Study report [facility] [address] [place] [address] XRay Report Signed Patient: Aaron Lewis MR#: [id number] : 1945 Acct:[id number] Age/Sex: 79 / F ADM Date: 4 Loc: ER Room: Type: [facility] ER Attending Dr: Copies to: Elder [...] Peyton Gatica M.D.03/23/2024 4:45 PM Dictation Location: [facility]- Transcribed By: PRECIOUS 03/23/241644 Dictated By: Peyton Gatica II, MD 03/23/241642 Signed By: 03/23/241644 [facility] Work Phone: XR acute abdomen serieson XR acute abdomen series [facility] [address] [place] [address] [place] [address] XRay Report Signed Patient: Aaron Lewis MR#: [id number] : 1945 Acct:[id number] Age/Sex: 79 / F ADM Date: 03/23/24 Loc: ER Room: Type: [facility] ER Attending Dr: Copies to: Elder [...] Peyton Gatica M.D.03/23/2024 4:45 PM Dictation Location: [place] [address] Transcribed By: [facility] 03/23/241644 Dictated By: Peyton Gatica II, MD 03/23/241642 Signed By: 03/23/241644 Normal [facility] pH Test strip (U)Ordered By: Elder Garcia on 03-23-2024 pH (U) pH of Urine by Test strip 5.0-9.0 [facility] Estimated glomerular filtrat ion rate (GFR) non- Americanon 03-13-2024 GFR/1.73 sq M.predicted among non-blacks MDRD (S/P/Bld) [Vol rate/Area] Estimated glomerular filtration rate (GFR) non- Low >=60 mL/min/1.7 3m 2 [facility] Laboratory - Chemistry and C hemistry - challengeon 03-13-2024 Creatinine [Mass/Vol] 1.32 mg/dL High 0.55-1.02 [facility] GFR/1.73 sq M.predicted MDRD (S/P/Bld) [Vol rate/Area] 47 mL/min/{1.73_m2} Low >=60 mL/min/1.7 3m 2 [facility] Urea nitrogen [Mass/Vol] 20.0 mg/dL High 7.0-18.0 [facility] 36on 03-10-2024 36 Labs are in media Normal [facility] 36 Confirmed Opat. Labs confirmed with [facility]. Left for pt to follow up for appointment. Normal [facility] Basophils Auto (Bld) [#/Vol] on 03-10-2024 Basophils (Bld) [#/Vol] 0.1 10 3/uL 0.0-0.1 [facility] Basophils (Bld) [#/Vol] Automated basophil count 0.0-0.1 [facility] Basophils/100 WBC Auto (Bld) on 03-10-2024 Basophils/100 WBC (Bld) 1.0 % 0.2-2.0 [facility] Basophils/100 WBC (Bld) Automated basophil % 0. 2-2.0 [facility] Eosinophils/100 WBC Auto (Bl d)on 03-10-2024 Eosinophils/100 WBC (Bld) 1.9 % 0.9-7.0 [facility] Eosinophils/100 WBC (Bld) Automated eosinophil % 0.9-7.0 [facility] Erythrocyte distribution wid th Auto (RBC) [Ratio]on 03-10-2024 Erythrocyte distribution width (RBC) [Ratio] 16.6 % High 11.0-15.0 [facility] Erythrocyte distribution width (RBC) [Ratio] Erythrocyte distribution width [Ratio] by Automated count High 11.0-15.0 [facility] Estimated glomerular filtrat ion rate (GFR) non- Americanon 03-10-2024 GFR/1.73 sq M.predicted among non-blacks MDRD (S/P/Bld) [Vol rate/Area] 25 mL/min/{1.73_m2} Low >=60 mL/min/1.7 3m 2 [facility] GFR/1.73 sq M.predicted among non-blacks MDRD (S/P/Bld) [Vol rate/Area] Estimated glomerular filtration rate (GFR) non- Low >=60 mL/min/1.7 3m 2 [facility] Hematocrit Auto (Bld) [Volum e fraction]on 03-10-2024 Hematocrit (Bld) [Volume fraction] 42.5 % 36.0-48.0 [facility] Hematocrit (Bld) [Volume fraction] Hematocrit [Volume Fraction] of Blood by Automated count 36.0-48.0 [facility] Hemoglobin [Mass/volume] in Bloodon 03-10-2024 Hemoglobin (Bld) [Mass/Vol] 13.3 g/dL 12.0-16.0 [facility] Hemoglobin (Bld) [Mass/Vol] Hemoglobin [Mass/volume] in Blood 12.0-16.0 [facility] Laboratory - Chemistry and C hemistry - challengeon 03-10-2024 Calcium [Mass/Vol] 9.7 mg/dL 8.5-10.1 [facility] Chloride [Moles/Vol] 112 mmol/L High 98-107 [facility] CO2 [Moles/Vol] 24.9 mmol/L 21.0-32.0 [facility] Creatinine [Mass/Vol] 1.95 mg/dL High 0.55-1.02 [facility] GFR/1.73 sq M.predicted MDRD (S/P/Bld) [Vol rate/Area] 30 mL/min/{1.73_m2} Low >=60 mL/min/1.7 3m 2 [facility] Glucose [Mass/Vol] 140 mg/dL High 74-106 [facility] Potassium [Moles/Vol] 3.4 mmol/L Low 3.5-5.1 [facility] Sodium [Moles/Vol] 148 mmol/L High 136-145 [facility] Urea nitrogen [Mass/Vol] 26.0 mg/dL High 7.0-18.0 [facility] Urea nitrogen/Creatinine [Mass ratio] 13.3 mg/mg [facility] Laboratory - Hematology and Cell countson 03-10-2024 Immature granulocytes/100 WBC (Bld) 0.4 % 0.0-0.5 [facility] Leukocytes [#/volume] correc kyleigh for nucleated erythrocytes in Blood by Automated counon 03-10-2024 WBC corrected for nucl RBC Auto (Bld) [#/Vol] 10.3 10 3/uL 4.0-11.0 [facility] WBC corrected for nucl RBC Auto (Bld) [#/Vol] Leukocytes [#/volume] corrected for nucleated erythrocytes in Blood by Automated coun .0-11.0 [facility] Lymphocytes Auto (Bld) [#/Vo l]on 03-10-2024 Lymphocytes (Bld) [#/Vol] 1.3 10 3/uL 1.2-3.8 [facility] Lymphocytes (Bld) [#/Vol] Lymphocytes [#/volume] in Blood by Automated count 1.2-3.8 [facility] Lymphocytes/100 WBC Auto (Bl d)on 03-10-2024 Lymphocytes/100 WBC (Bld) 12.2 % Low 20.5-60.0 [facility] Lymphocytes/100 WBC (Bld) Lymphocytes/100 leukocytes in Blood by Automated count Low 20.5-60.0 [facility] MCH Auto (RBC) [Entitic mass ]on 03-10-2024 MCH (RBC) [Entitic mass] 30.0 pg 26.7-34.0 [facility] MCH (RBC) [Entitic mass] MCH [Entitic mass] by Automated count 26.7-34.0 [facility] MCHC Auto (RBC) [Mass/Vol]on 03-10-2024 MCHC (RBC) [Mass/Vol] 31.3 g/dL 29.9-35.2 [facility] MCHC (RBC) [Mass/Vol] MCHC [Mass/volume] by Automated count 29.9-35.2 [facility] MCV Auto (RBC) [Entitic vol] on 03-10-2024 MCV (RBC) [Entitic vol] 95.9 fL 81.0-99.0 [facility] MCV (RBC) [Entitic vol] MCV [Entitic vol ume] by Automated count 81.0-99.0 [facility] Monocytes Auto (Bld) [#/Vol] on 03-10-2024 Monocytes (Bld) [#/Vol] 0.7 10 3/uL 0.3-0.8 [facility] Monocytes (Bld) [#/Vol] Automated blood monocyte count 0.3-0.8 [facility] Monocytes/100 WBC Auto (Bld) on 03-10-2024 Monocytes/100 WBC (Bld) 6.9 % 1.7-12.0 [facility] Monocytes/100 WBC (Bld) Automated monocyte % 1. 7-12.0 [facility] Neutrophils Auto (Bld) [#/Vo l]on 03-10-2024 Neutrophils (Bld) [#/Vol] 8.0 10 3/uL High 1.4-6.5 [facility] Neutrophils (Bld) [#/Vol] Neutrophils [#/volume] in Blood by Automated count High 1.4-6.5 [facility] Neutrophils/100 WBC Auto (Bl d)on 03-10-2024 Neutrophils/100 WBC (Bld) 77.6 % High 43.0-75.0 [facility] Neutrophils/100 WBC (Bld) Automated neutrophil % High 43.0-75.0 [facility] No Panel Informationon 03-10 Eosinophils # (Auto) 0.2 10 3/uL 0.0-0.7 [facility] Immature Granulocyte # (Auto) 0.04 10 3/uL High 0.00-0.03 [facility] Platelet mean volume Auto (B ld) [Entitic vol]on 03-10-2024 Platelet mean volume (Bld) [Entitic vol] 11.5 fL 9.5-13.5 [facility] Platelet mean volume (Bld) [Entitic vol] Platelet mean volume [Entitic volume] in Blood by Automated count 9.5-13.5 [facility] Platelets Auto (Bld) [#/Vol] on 03-10-2024 Platelets (Bld) [#/Vol] 289 10 3/uL 150-450 [facility] Platelets (Bld) [#/Vol] Platelets [#/vol ume] in Blood by Automated count 150-450 [facility] RBC Auto (Bld) [#/Vol]on RBC (Bld) [#/Vol] 4.43 10 6/uL 4.20-5.40 [facility] RBC (Bld) [#/Vol] Erythrocytes [#/volu me] in Blood by Automated count 4.20-5.40 [facility] Serum or plasma anion gap de terminationon 03-10-2024 Anion gap [Moles/Vol] 14.5 mmol/L [facility] Anion gap [Moles/Vol] Serum or plasma an ion gap determination [facility] Basic Metabolic Panelon 02-12 Anion gap [Moles/Vol] 12 mmol/L 5 - 15 mmol/L [facility] Calcium [Mass/Vol] 9.8 mg/dL 8.5 - 10. 5 mg/dL [facility] Chloride [Moles/Vol] 105 mmol/L 98 - 10 9 mmol/L [facility] CO2 [Moles/Vol] 26 mmol/L 22 - 32 mmol/L [facility] Creatinine [Mass/Vol] 1.01 mg/dL High 0.40 - 1.00 mg/dL [facility] Comment on above: METHOD TRACEABLE TO [facility] STANDARD eGFR (CKD-EPI)non-race dependent 57 Low - PINF [facility] Comment on above: Reported eGFR is based on the CKD-EPI 2020 equation that does not use a race coefficient. Glucose [Mass/Vol] 91 mg/dL 65 - 99 mg/dL [facility] Interpretation and review of laboratory results Abnormal [facility] Potassium [Moles/Vol] 3.8 mmol/L 3.5 - 5.0 mmol/L [facility] Sodium [Moles/Vol] 143 mmol/L 134 - 146 mmol/L [facility] Urea nitrogen [Mass/Vol] 19 mg/dL 5 - 27 mg/dL [facility] CBC auto differentialon 02-12 Basophils (Bld) [#/Vol] 0.2 10*3/uL [facility] Basophils/100 WBC (Bld) 2.5 % [facility] Eosinophils (Bld) [#/Vol] 0.2 10*3/uL [facility] Eosinophils/100 WBC (Bld) 2.2 % [facility] Erythrocyte distribution width (RBC) [Ratio] 16.2 % High 11.5 - 15.0 % [facility] Hematocrit (Bld) [Volume fraction] 42 % 35 - 47 % [facility] Hemoglobin (Bld) [Mass/Vol] 14 g/dL 11.7 - 15.5 g/dL [facility] Interpretation and review of laboratory results Abnormal [facility] Lymphocytes (Bld) [#/Vol] 1.6 10*3/uL [facility] Lymphocytes/100 WBC (Bld) 22.9 % [facility] MCH (RBC) [Entitic mass] 30.7 pg 27 - 34 pg [facility] MCHC (RBC) [Mass/Vol] 33.3 g/dL 32 - 3 6 g/dL [facility] MCV (RBC) [Entitic vol] 92 fL 80 - 100 fL [facility] Monocytes (Bld) [#/Vol] 0.7 10*3/uL [facility] Monocytes/100 WBC (Bld) 10.4 % [facility] Neutrophils (Bld) [#/Vol] 4.3 10*3/uL [facility] Neutrophils/100 WBC (Bld) 62 % [facility] Platelet mean volume (Bld) [Entitic vol] 9.4 fL 7 - 12 fL [facility] Platelets (Bld) [#/Vol] 241 10*3/uL [facility] RBC (Bld) [#/Vol] 4.55 10*6/uL [facility] WBC corrected for nucl RBC Auto (Bld) [#/Vol] 7 [facility] CSF spinal fluid cell counto n 03-04-2024 Clarity (CSF) CLEAR [facility] Color (CSF) COLORLESS [facility] Color (Spun CSF) COLORLESS [facility] Interpretation and review of laboratory results Abnormal [facility] Laboratory comment Arun (Report) TUBE 3 [facility] Lymphocytes/100 WBC Manual cnt (CSF) 97 % High 0 [facility] Monocytes/100 WBC Manual cnt (CSF) 3 % High 0 [facility] Nucleated cells Manual cnt (CSF) [#/Vol] 0.091 10*3/uL High 0 - 5 /uL [facility] RBC Manual cnt (CSF) [#/Vol] 2 /uL High 0 - 1 /uL [facility] Csf total proteinon 03-04-20 Protein (CSF) [Mass/Vol] 57 mg/dL High 15 - 45 mg/dL [facility] Glucose, CSFon 03-04-2024 Glucose (CSF) [Mass/Vol] 64 mg/dL 40 - 70 mg/dL [facility] Guidance for puncture of Lum bar spineon 03-04-2024 Fredrick Rain MD - 03/04/2024 Pre-procedure diagnosis: See history below Post-procedure diagnosis: Same as above Assistants/resident: See the technologist's notes above Consent/pre-procedure evaluation: See below. [place] protocol timeout verification performed. Estimated blood loss: [...] Antonio Rain MD on 03/04/2024 10:21 AM [facility] Radiology Study observation (narrative) [facility] Guidance for puncture of Lum bar spineOrdered By: Fredrick Rain on 03-04-2024 [facility] Work Phone: Meningitis+Encephalitis path ogens DNA and RNA panel KIMMY+non-probe (CSF)on 03-04-2024 C. gattii+neoformans DNA KIMMY+non-probe Ql (CSF) Not detected Not Detected^N ot Detected [facility] CMV DNA KIMMY+non-probe Ql (CSF) Not detected Not Detected^N ot Detected [facility] E. coli K1 DNA KIMMY+non-probe Ql (CSF) Not detected Not Detected^N ot Detected [facility] Enterovirus RNA KIMMY+non-probe Ql (CSF) Not detected Not Detected^N ot Detected [facility] H. influenzae DNA KIMMY+non-probe Ql (CSF) Not detected Not Detected^N ot Detected [facility] HHV 6 DNA KIMMY+non-probe Ql (CSF) Not detected Not Detected^N ot Detected [facility] HSV 1 DNA KIMMY+non-probe Ql (CSF) Not detected Not Detected^N ot Detected [facility] HSV 2 DNA KIMMY+non-probe Ql (CSF) Not detected Not Detected^N ot Detected [facility] Interpretation and review of laboratory results Abnormal [facility] L. monocytogenes DNA KIMMY+non-probe Ql (CSF) Not detected Not Detected^N ot Detected [facility] N. meningitidis DNA KIMMY+non-probe Ql (CSF) Not detected Not Detected^N ot Detected [facility] Parechovirus A RNA KIMMY+non-probe Ql (CSF) Not detected Not Detected^N ot Detected [facility] S. agalactiae DNA KIMMY+non-probe Ql (CSF) Not detected Not Detected^N ot Detected [facility] S. pneumoniae DNA KIMMY+non-probe Ql (CSF) Not detected Not Detected^N ot Detected [facility] Specimen source Nom (Body fld) CEREBROSPINAL FLUID [facility] VZV DNA KIMMY+non-probe Ql (CSF) Detected Abnormal Not Detected^N ot Detected [facility] Comment on above: Varicella zoster vir us (VZV) detected by PCR. [facility] No Panel Informationon 03-04 [facility] Protein (CSF) [Mass/Vol]on 1 Interpretation and review of laboratory results Abnormal [facility] XR Chest Single viewon 03-04 History: [...] Herminio Sahni MD on 03/04/2024 12:39 PM SECTRAMTHerminio Sandoval MD - 03/04/2024 History: hypoxic Exam/Technique: Single [...] Herminio Sahni MD on 03/04/2024 12:39 PM [facility] Radiology Study observation (narrative) [facility] XR Chest Single viewOrdered By: Herminio Sahni on 03-04-2024 [facility] Work Phone: Basic Metabolic Panelon 02-12 Anion gap [Moles/Vol] 15 mmol/L 5 - 15 mmol/L [facility] Calcium [Mass/Vol] 9.6 mg/dL 8.5 - 10. 5 mg/dL [facility] Chloride [Moles/Vol] 107 mmol/L 98 - 10 9 mmol/L [facility] CO2 [Moles/Vol] 20 mmol/L Low 22 - 32 mmol/L [facility] Creatinine [Mass/Vol] 1.1 mg/dL High 0.40 - 1.00 mg/dL [facility] Comment on above: METHOD TRACEABLE TO [facility] STANDARD eGFR (CKD-EPI)non-race dependent 52 Low - PINF [facility] Comment on above: Reported eGFR is based on the CKD-EPI 2020 equation that does not use a race coefficient. Glucose [Mass/Vol] 90 mg/dL 65 - 99 mg/dL [facility] Interpretation and review of laboratory results Abnormal [facility] Potassium [Moles/Vol] 4.3 mmol/L 3.5 - 5.0 mmol/L [facility] Sodium [Moles/Vol] 142 mmol/L 134 - 146 mmol/L [facility] Urea nitrogen [Mass/Vol] 22 mg/dL 5 - 27 mg/dL [facility] CBC auto differentialon 02-12 Basophils (Bld) [#/Vol] 0.1 10*3/uL [facility] Basophils/100 WBC (Bld) 1.2 % [facility] Eosinophils (Bld) [#/Vol] 0.1 10*3/uL [facility] Eosinophils/100 WBC (Bld) 1.7 % [facility] Erythrocyte distribution width (RBC) [Ratio] 16.2 % High 11.5 - 15.0 % [facility] Hematocrit (Bld) [Volume fraction] 43.7 % 35 - 47 % [facility] Hemoglobin (Bld) [Mass/Vol] 14.9 g/dL 11.7 - 15.5 g/dL [facility] Interpretation and review of laboratory results Abnormal [facility] Lymphocytes (Bld) [#/Vol] 2.4 10*3/uL [facility] Lymphocytes/100 WBC (Bld) 28.1 % [facility] MCH (RBC) [Entitic mass] 31 pg 27 - 34 pg [facility] MCHC (RBC) [Mass/Vol] 34 g/dL 32 - 3 6 g/dL [facility] MCV (RBC) [Entitic vol] 91 fL 80 - 100 fL [facility] Monocytes (Bld) [#/Vol] 0.8 10*3/uL [facility] Monocytes/100 WBC (Bld) 9.4 % [facility] Neutrophils (Bld) [#/Vol] 5.1 10*3/uL [facility] Neutrophils/100 WBC (Bld) 59.6 % [facility] Platelet mean volume (Bld) [Entitic vol] 9.1 fL 7 - 12 fL [facility] Platelets (Bld) [#/Vol] 267 10*3/uL [facility] RBC (Bld) [#/Vol] 4.79 10*6/uL [facility] WBC corrected for nucl RBC Auto (Bld) [#/Vol] 8.5 [facility] Urinalysison 03-03-2024 Bilirubin Ql (U) Negative Negative^N egative [facility] Color (U) YELLOW YELLOW^YEL LOW [facility] Glucose (U) [Mass/Vol] Negative Negat derrell^N egative mg/dL [facility] Hemoglobin Auto test strip Ql (U) Negative Negative^N egative [facility] Interpretation and review of laboratory results Abnormal [facility] Ketones (U) [Mass/Vol] Trace Abnormal Negat derrell^N egative mg/dL [facility] Leukocyte esterase Auto test strip Ql (U) Negative Negative^N egative [facility] Nitrite Auto test strip Ql (U) Negative Negative^N egative [facility] pH (U) 6 [pH] 5.0 - 8.5 [facility] Protein (U) [Mass/Vol] Negative Negat derrell^N egative mg/dL [facility] Specific gravity Refractometry automated (U) [Rel density] 1.019 1.003 - 1.035 [facility] Turbidity Ql (U) CLEAR CLEAR^PIYUSH R [facility] Urobilinogen Qn (U) NINF [facility] CBC auto differentialon 02-12 Basophils (Bld) [#/Vol] 0.1 10*3/uL [facility] Basophils/100 WBC (Bld) 0.6 % [facility] Eosinophils (Bld) [#/Vol] 0.1 10*3/uL [facility] Eosinophils/100 WBC (Bld) 0.6 % [facility] Erythrocyte distribution width (RBC) [Ratio] 16.3 % High 11.5 - 15.0 % [facility] Hematocrit (Bld) [Volume fraction] 42.8 % 35 - 47 % [facility] Hemoglobin (Bld) [Mass/Vol] 14.3 g/dL 11.7 - 15.5 g/dL [facility] Interpretation and review of laboratory results Abnormal [facility] Lymphocytes (Bld) [#/Vol] 1.9 10*3/uL [facility] Lymphocytes/100 WBC (Bld) 20.7 % [facility] MCH (RBC) [Entitic mass] 30.6 pg 27 - 34 pg [facility] MCHC (RBC) [Mass/Vol] 33.5 g/dL 32 - 3 6 g/dL [facility] MCV (RBC) [Entitic vol] 91 fL 80 - 100 fL [facility] Monocytes (Bld) [#/Vol] 1 10*3/uL High [facility] Monocytes/100 WBC (Bld) 11.1 % [facility] Neutrophils (Bld) [#/Vol] 6.3 10*3/uL [facility] Neutrophils/100 WBC (Bld) 67 % [facility] Platelet mean volume (Bld) [Entitic vol] 8.9 fL 7 - 12 fL [facility] Platelets (Bld) [#/Vol] 224 10*3/uL [facility] RBC (Bld) [#/Vol] 4.69 10*6/uL [facility] WBC corrected for nucl RBC Auto (Bld) [#/Vol] 9.3 [facility] Basophils (Bld) [#/Vol] 0.1 10*3/uL [facility] Basophils/100 WBC (Bld) 0.7 % [facility] Eosinophils (Bld) [#/Vol] 0 10*3/uL [facility] Eosinophils/100 WBC (Bld) 0.1 % [facility] Erythrocyte distribution width (RBC) [Ratio] 16 % High 11.5 - 15.0 % [facility] Hematocrit (Bld) [Volume fraction] 43.5 % 35 - 47 % [facility] Hemoglobin (Bld) [Mass/Vol] 14.5 g/dL 11.7 - 15.5 g/dL [facility] Interpretation and review of laboratory results Abnormal [facility] Lymphocytes (Bld) [#/Vol] 1.8 10*3/uL [facility] Lymphocytes/100 WBC (Bld) 17.5 % [facility] MCH (RBC) [Entitic mass] 30.7 pg 27 - 34 pg [facility] MCHC (RBC) [Mass/Vol] 33.3 g/dL 32 - 3 6 g/dL [facility] MCV (RBC) [Entitic vol] 92 fL 80 - 100 fL [facility] Monocytes (Bld) [#/Vol] 1 10*3/uL High [facility] Monocytes/100 WBC (Bld) 9.9 % [facility] Neutrophils (Bld) [#/Vol] 7.4 10*3/uL High [facility] Neutrophils/100 WBC (Bld) 71.8 % [facility] Platelet mean volume (Bld) [Entitic vol] 9.3 fL 7 - 12 fL [facility] Platelets (Bld) [#/Vol] 235 10*3/uL [facility] RBC (Bld) [#/Vol] 4.71 10*6/uL [facility] WBC corrected for nucl RBC Auto (Bld) [#/Vol] 10.4 [facility] Comprehensive metabolic pane meagan 03-02-2024 Albumin [Mass/Vol] 3.9 g/dL 3.2 - 5.3 g/dL [facility] ALP [Catalytic activity/Vol] 58 U/L 39 - 130 U/L [facility] ALT No additional P-5'-P [Catalytic activity/Vol] 15 U/L 0 - 31 U/L [facility] Anion gap [Moles/Vol] 11 mmol/L 5 - 15 mmol/L [facility] AST [Catalytic activity/Vol] 15 U/L 0 - 41 U/L [facility] Bilirubin [Mass/Vol] 0.3 mg/dL 0.3 - 1 .2 mg/dL [facility] Calcium [Mass/Vol] 9.5 mg/dL 8.5 - 10. 5 mg/dL [facility] Chloride [Moles/Vol] 107 mmol/L 98 - 10 9 mmol/L [facility] CO2 [Moles/Vol] 23 mmol/L 22 - 32 mmol/L [facility] Creatinine [Mass/Vol] 1.36 mg/dL High 0.40 - 1.00 mg/dL [facility] Comment on above: METHOD TRACEABLE TO [facility] STANDARD eGFR (CKD-EPI)non-race dependent 40 Low - PINF [facility] Comment on above: Reported eGFR is based on the CKD-EPI 2020 equation that does not use a race coefficient. Glucose [Mass/Vol] 84 mg/dL 65 - 99 mg/dL [facility] Interpretation and review of laboratory results Abnormal [facility] Potassium [Moles/Vol] 4 mmol/L 3.5 - 5.0 mmol/L [facility] Protein [Mass/Vol] 6.1 g/dL 6.0 - 8.0 g/dL [facility] Sodium [Moles/Vol] 141 mmol/L 134 - 146 mmol/L [facility] Urea nitrogen [Mass/Vol] 30 mg/dL High 5 - 27 mg/dL [facility] Albumin [Mass/Vol] 4 g/dL 3.2 - 5.3 g/dL [facility] ALP [Catalytic activity/Vol] 62 U/L 39 - 130 U/L [facility] ALT No additional P-5'-P [Catalytic activity/Vol] 15 U/L 0 - 31 U/L [facility] Anion gap [Moles/Vol] 12 mmol/L 5 - 15 mmol/L [facility] AST [Catalytic activity/Vol] 17 U/L 0 - 41 U/L [facility] Bilirubin [Mass/Vol] 0.4 mg/dL 0.3 - 1 .2 mg/dL [facility] Calcium [Mass/Vol] 9.7 mg/dL 8.5 - 10. 5 mg/dL [facility] Chloride [Moles/Vol] 103 mmol/L 98 - 10 9 mmol/L [facility] CO2 [Moles/Vol] 23 mmol/L 22 - 32 mmol/L [facility] Creatinine [Mass/Vol] 1.45 mg/dL High 0.40 - 1.00 mg/dL [facility] Comment on above: METHOD TRACEABLE TO [facility] STANDARD eGFR (CKD-EPI)non-race dependent 37 Low - PINF [facility] Comment on above: Reported eGFR is based on the CKD-EPI 2020 equation that does not use a race coefficient. Glucose [Mass/Vol] 85 mg/dL 65 - 99 mg/dL [facility] Interpretation and review of laboratory results Abnormal [facility] Potassium [Moles/Vol] 4.8 mmol/L 3.5 - 5.0 mmol/L [facility] Protein [Mass/Vol] 6.5 g/dL 6.0 - 8.0 g/dL [facility] Sodium [Moles/Vol] 138 mmol/L 134 - 146 mmol/L [facility] Urea nitrogen [Mass/Vol] 29 mg/dL High 5 - 27 mg/dL [facility] DISCONTINUE IN PROCESS EEG T ESTINGOrdered By: Documentation Systemgenerated on 03-02-2024 [facility] Work Phone: Holter monitor studyon 03-02 Images from the orig inal result were not included. [facility] Video/EEG Monitoring REPORT EEG Service Date(s): 03/02/24 from 06:05 until 11:16 Date of Report: 03/02/24 History: Aaron Lewis is 79 y.o. female with acute shingles and confusion who is undergoing video/EEG monitoring to evaluate for seizures. Centrally active medications: Buspar, nortriptyline. Procedure: This video/EEG monitoring was acquired with electrodes placed according to the [id number] electrode placement system,using collodion. The EEG was [...] on this day. Dina Lucio M.D., Ph.D. Home Economics Expert [facility] MANUALLY TRANSCRIBED RESULTS [facility] Images from the orig inal result were not included. [facility] Video/EEG Monitoring REPORT EEG Service Date(s): 03/02/24 from 02:47 until 06:05 Date of Report: 03/02/24 History: Aaron Lewis is 79 y.o. female with acute shingles and confusion who is undergoing video/EEG monitoring to evaluate for seizures. Centrally active medications: Buspar, nortriptyline. Procedure: This video/EEG monitoring was acquired with electrodes placed according to the [id number] electrode placement system,using collodion. The EEG was [...] of intermittent seizures. Dina Lucio M.D., Ph.D. Home Economics Expert [facility] MANUALLY TRANSCRIBED RESULTS Holter monitor studyOrdered By: Dina Lucio on 03-02-2024 [facility] Work Phone: MR Brain WO and W [...] Migue Driver MD on 03/02/2024 6:58 PM SECTRAPA Migue Driver MD - 03/02/2024 EXAM: MR [...] Migue Driver MD on 03/02/2024 6:58 PM [facility] Interview Rocket [facility] Radiology Study observation (narrative) [facility] MR Brain WO and W contrast I VOrdered By: Migue Driver on 03-02-2024 [facility] Work Phone: Protime & INRon 03-02-2024 INR Coag (PPP) [Relative time] 0.9 {INR} [facility] PT Coag (PPP) [Time] 10.6 s [facility] Basophils Auto (Bld) [#/Vol] on 03-01-2024 Basophils (Bld) [#/Vol] 0.0 10 3/uL 0.0-0.1 [facility] Basophils (Bld) [#/Vol] Automated basophil count 0.0-0.1 [facility] Basophils/100 WBC Auto (Bld) on 03-01-2024 Basophils/100 WBC (Bld) 0.3 % 0.2-2.0 [facility] Basophils/100 WBC (Bld) Automated basophil % 0. 2-2.0 [facility] Eosinophils/100 WBC Auto (Bl d)on 03-01-2024 Eosinophils/100 WBC (Bld) 0.1 % Low 0.9-7.0 [facility] Eosinophils/100 WBC (Bld) Automated eosinophil % Low 0.9-7.0 [facility] Erythrocyte distribution wid th Auto (RBC) [Ratio]on 03-01-2024 Erythrocyte distribution width (RBC) [Ratio] 15.3 % High 11.0-15.0 [facility] Erythrocyte distribution width (RBC) [Ratio] Erythrocyte distribution width [Ratio] by Automated count High 11.0-15.0 [facility] Estimated glomerular filtrat ion rate (GFR) non- Americanon 03-01-2024 GFR/1.73 sq M.predicted among non-blacks MDRD (S/P/Bld) [Vol rate/Area] 26 mL/min/{1.73_m2} Low >=60 mL/min/1.7 3m 2 [facility] GFR/1.73 sq M.predicted among non-blacks MDRD (S/P/Bld) [Vol rate/Area] Estimated glomerular filtration rate (GFR) non- Low >=60 mL/min/1.7 3m 2 [facility] Globulin Calc (S) [Mass/Vol] on 03-01-2024 Globulin (S) [Mass/Vol] 3.5 g/dL [facility] Globulin (S) [Mass/Vol] Serum globulin measurement by calculation (mass/volume) [facility] Hematocrit Auto (Bld) [Volum e fraction]on 03-01-2024 Hematocrit (Bld) [Volume fraction] 46.0 % 36.0-48.0 [facility] Hematocrit (Bld) [Volume fraction] Hematocrit [Volume Fraction] of Blood by Automated count 36.0-48.0 [facility] Hemoglobin [Mass/volume] in Bloodon 03-01-2024 Hemoglobin (Bld) [Mass/Vol] 14.8 g/dL 12.0-16.0 [facility] Hemoglobin (Bld) [Mass/Vol] Hemoglobin [Mass/volume] in Blood 12.0-16.0 [facility] INR in Platelet poor plasma by Coagulation assayon 03-01-2024 INR Coag (PPP) [Relative time] 0.97 {INR} [facility] Comment on above: DESIRED INR:2.0-3.0 CONDITIONS NOT LISTED BELOW2.5-3.5 FOR PROSTHETIC HEART VALVE REPLACEMENT2.5-3.5 RECURRENT THROMBOSIS INR Coag (PPP) [Relative time] INR in Platelet poor plasma by Coagulation assay [facility] Comment on above: DESIRED INR:2.0-3.0 CONDITIONS NOT LISTED BELOW2.5-3.5 FOR PROSTHETIC HEART VALVE REPLACEMENT2.5-3.5 RECURRENT THROMBOSIS Laboratory - Chemistry and C hemistry - challengeon 03-01-2024 Bilirubin Ql (U) Negative NEGATIVE [facility] Glucose (U) [Mass/Vol] Negative NEGATIVE [facility] Ketones Ql (U) TRACE mg/dL Abnormal NEGATIVE [facility] pH (U) 6.0 [pH] 5.0-9.0 [facility] Specific gravity (U) [Rel density] 1.020 1.005-1.02 5 [facility] Urobilinogen Qn (U) 0.2 {Nevaeh'U}/dL 0.2-1.0 [facility] Albumin [Mass/Vol] 3.5 g/dL 3.4-5.0 [facility] ALP [Catalytic activity/Vol] 76 U/L 46-116 [facility] ALT [Catalytic activity/Vol] 24 U/L 14-59 [facility] AST [Catalytic activity/Vol] 15 U/L 15-37 [facility] Bilirubin [Mass/Vol] 0.5 mg/dL 0.2-1.0 [facility] Calcium [Mass/Vol] 10.3 mg/dL High 8.5-10.1 [facility] Chloride [Moles/Vol] 103 mmol/L 98-107 [facility] CO2 [Moles/Vol] 19.7 mmol/L Low 21.0-32.0 [facility] Creatinine [Mass/Vol] 1.86 mg/dL High 0.55-1.02 [facility] GFR/1.73 sq M.predicted MDRD (S/P/Bld) [Vol rate/Area] 32 mL/min/{1.73_m2} Low >=60 mL/min/1.7 3m 2 [facility] Glucose [Mass/Vol] 105 mg/dL 74-106 [facility] Lactate [Moles/Vol] 1.1 mmol/L 0.4-2.0 [facility] Magnesium [Mass/Vol] 2.8 mg/dL High 1.8-2.4 [facility] Potassium [Moles/Vol] 4.8 mmol/L 3.5-5.1 [facility] Protein [Mass/Vol] 7.0 g/dL 6.4-8.2 [facility] Sodium [Moles/Vol] 138 mmol/L 136-145 [facility] Urea nitrogen [Mass/Vol] 29.0 mg/dL High 7.0-18.0 [facility] Urea nitrogen/Creatinine [Mass ratio] 15.6 mg/mg [facility] Laboratory - Hematology and Cell countson 03-01-2024 Immature granulocytes/100 WBC (Bld) 0.7 % High 0.0-0.5 [facility] Laboratory - Specimen inform ationon 03-01-2024 Appearance (U) CLEAR CLEAR [facility] Color (U) LT. YELLOW YELLOW [facility] Laboratory - Urinalysison Leukocyte esterase Test strip Ql (U) Negative NEGATIVE [facility] Nitrite Ql (U) Negative NEGATIVE [facility] Protein Ql (U) Negative NEG/TRACE [facility] Leukocytes [#/volume] correc kyleigh for nucleated erythrocytes in Blood by Automated counon 03-01-2024 WBC corrected for nucl RBC Auto (Bld) [#/Vol] 9.8 10 3/uL 4.0-11.0 [facility] WBC corrected for nucl RBC Auto (Bld) [#/Vol] Leukocytes [#/volume] corrected for nucleated erythrocytes in Blood by Automated coun 4.0-11.0 [facility] Lymphocytes Auto (Bld) [#/Vo l]on 03-01-2024 Lymphocytes (Bld) [#/Vol] 1.2 10 3/uL 1.2-3.8 [facility] Lymphocytes (Bld) [#/Vol] Lymphocytes [#/volume] in Blood by Automated count 1.2-3.8 [facility] Lymphocytes/100 WBC Auto (Bl d)on 03-01-2024 Lymphocytes/100 WBC (Bld) 12.3 % Low 20.5-60.0 [facility] Lymphocytes/100 WBC (Bld) Lymphocytes/100 leukocytes in Blood by Automated count Low 20.5-60.0 [facility] MCH Auto (RBC) [Entitic mass ]on 03-01-2024 MCH (RBC) [Entitic mass] 29.7 pg 26.7-34.0 [facility] MCH (RBC) [Entitic mass] MCH [Entitic mass] by Automated count 26.7-34.0 [facility] MCHC Auto (RBC) [Mass/Vol]on 03-01-2024 MCHC (RBC) [Mass/Vol] 32.2 g/dL 29.9-35.2 [facility] MCHC (RBC) [Mass/Vol] MCHC [Mass/volume] by Automated count 29.9-35.2 [facility] MCV Auto (RBC) [Entitic vol] on 03-01-2024 MCV (RBC) [Entitic vol] 92.4 fL 81.0-99.0 [facility] MCV (RBC) [Entitic vol] MCV [Entitic vol ume] by Automated count 81.0-99.0 [facility] Monocytes Auto (Bld) [#/Vol] on 03-01-2024 Monocytes (Bld) [#/Vol] 0.8 10 3/uL 0.3-0.8 [facility] Monocytes (Bld) [#/Vol] Automated blood monocyte count 0.3-0.8 [facility] Monocytes/100 WBC Auto (Bld) on 03-01-2024 Monocytes/100 WBC (Bld) 8.1 % 1.7-12.0 [facility] Monocytes/100 WBC (Bld) Automated monocyte % 1. 7-12.0 [facility] Neutrophils Auto (Bld) [#/Vo l]on 03-01-2024 Neutrophils (Bld) [#/Vol] 7.7 10 3/uL High 1.4-6.5 [facility] Neutrophils (Bld) [#/Vol] Neutrophils [#/volume] in Blood by Automated count High 1.4-6.5 [facility] Neutrophils/100 WBC Auto (Bl d)on 03-01-2024 Neutrophils/100 WBC (Bld) 78.5 % High 43.0-75.0 [facility] Neutrophils/100 WBC (Bld) Automated neutrophil % High 43.0-75.0 [facility] No Panel Informationon 03-01 Urine Microscopic Review NO [facility] Urine Occult Blood Negative NEGATIVE [facility] Eosinophils # (Auto) 0.0 10 3/uL 0.0-0.7 Fir [facility] Immature Granulocyte # (Auto) 0.07 10 3/uL High 0.00-0.03 [facility] Platelet mean volume Auto (B ld) [Entitic vol]on 03-01-2024 Platelet mean volume (Bld) [Entitic vol] 10.9 fL 9.5-13.5 [facility] Platelet mean volume (Bld) [Entitic vol] Platelet mean volume [Entitic volume] in Blood by Automated count 9.5-.5 [facility] Platelets Auto (Bld) [#/Vol] on 03-01-2024 Platelets (Bld) [#/Vol] 276 10 3/uL 150-450 [facility] Platelets (Bld) [#/Vol] Platelets [#/vol ume] in Blood by Automated count 150-450 [facility] Prothrombin time (PT)on 02-11 PT Coag (PPP) [Time] 10.3 s 9.0-11.6 [facility] PT Coag (PPP) [Time] Prothrombin time (PT) 9.0- 11.6 [facility] RBC Auto (Bld) [#/Vol]on RBC (Bld) [#/Vol] 4.98 10 6/uL 4.20-5.40 [facility] RBC (Bld) [#/Vol] Erythrocytes [#/volu me] in Blood by Automated count .20-5.40 [facility] Serum or plasma albumin/glob ulin mass ratioon 03-01-2024 Albumin/Globulin [Mass ratio] 1.0 {ratio} [facility] Albumin/Globulin [Mass ratio] Serum or plasma albumin/globulin mass ratio [facility] Serum or plasma anion gap de terminationon 03-01-2024 Anion gap [Moles/Vol] 20.1 mmol[facility] Anion gap [Moles/Vol] Serum or plasma an ion gap determination [facility] Patient Letter FTon 2023 Patient Letter [facility] Patient Letter [facility] January 28, 2024 AARON LEWIS [address] [facility] [place] [address] : 1945 Dear Aaron Lewis, We have been trying to reach you with no success. It is important that you return our call upon receiving this letter. Also, at the time of your call, please provide us with your current information. Thank you for your prompt attention to this matter. Sincerely, [facility] [address] [place] [address] [facility] Ambulatory Visit Summaryon 0 12-25-2023 Ambulatory [...] MARIN PA-C, URL When: Where: [address] [place] [address] [phone] Medications What How Much When Instructions Unchanged [...] (more content not included)... Normal [facility] Urology Office/Clinic Noteon 12-25-2023 Urology Office/Clinic [...] Contact Information MIAH ROE, BRENDA Poole, URL [address] [facility] [place] [address] [phone] Additional Instructions: nurse visit in 1 wk [...] (more content not included)... Normal [facility] Comment on above: Result Comment: Elec tronically Signed By: BRENDA MARIN PA-C\.br\Date and Time Signed: 12/25/23 13:09 EDT\.br\Electronically Co-Signed By: Abby Colon\.br\Date and Time Co-Signed: 12/25/23 13:07 EDT Estimated glomerular filtrat ion rate (GFR) non- Americanon 12-18-2023 GFR/1.73 sq M.predicted among non-blacks MDRD (S/P/Bld) [Vol rate/Area] 50 mL/min/{1.73_m2} Low >=60 [facility] Laboratory - Chemistry and C hemistry - challengeon 12-18-2023 Creatinine [Mass/Vol] 1.07 mg/dL High 0.55-1.02 [facility] GFR/1.73 sq M.predicted MDRD (S/P/Bld) [Vol rate/Area] mL/min/{1.73_m2} >=60 [facility] Inpatient Patient Summaryon 12-03-2023 Inpatient Patient Summary Inpatient Patient Summary [place] [id number] Clinical Summary Person Information Name: AARON LEWIS Age: 78 Years : 1945 Sex: Female PCP: JEREMIAH REED MD Marital Status: Phone: [phone] Race: White Ethnicity: Non- or Language: Lithuanian Visit Id: Visit Reason: URINARY INCONTINENCE Speciality: Acuity: Enc Type: Outpatient Med Service: Surgery Arrival: 12/03/2023 13:41:56 Discharge: Dispo Type: Address: [address] [place] [address] [place] [phone] Provider Notes: Diagnosis: Problems Active Recurrent UTI [...] Cayden GALLO MD Consulting Physician: Referring Physician: COOK MD, Cayden P Follow up: With: Address: When: BRENDA MARIN [address] [place] [id number] [facility] (1) Comments: Call for followup appointment with Georgette Marin PA-C within the next three weeks or so. Push fluids to keep the urine clear. Expect the Botox to start working within the next 2-3 weeks. Have a great day! Patient Education Information: EU - Cystoscopy with Botox Injection Discharge Instructions (Custom) [facility] Main OR Intraoperative Recor don 12-03-2023 Main OR Intraoperative Record Main OR Intraoperative Record IntraOp Document Type FTURO Summary Primary Physician: Cayden GALLO MD Finalized Date/Time: 12/03/23 14:30:52 Pt. Name: AARON LEWIS Flori Odom/Sex: 1945 Female Med Rec #: [id number] Physician: Cayden GALLO MD Financial #: [id number] Pt. Type: O Room/Bed: / Admit/Disch: 12/03/23 13:41:56 - Institution: Case Times FTURO Entry 1 Patient Times In Room 12/03/23 14:15:00 Out Room 12/03/23 14:30:00 Procedure Times Start 12/03/23 14:21:00 Stop 12/03/23 14:23:00 Anesthesia Times Last Modified By: eNva Palacio 12/03/23 14:30:41 General Comments: BOTOX 100 UNITS EXP: LOT: [id number].GIORGIO MELENDEZ. Case Attendance FTURO Entry 1 Entry 2 Entry 3 Case Attendee Cayden GALLO MD, Kelsie E McClain [employer] TENDERKenisha Role Performed Surgeon - Primary Asp Net Mvc Developer - Primary Scrub - Primary Time In [...] 12/03/23 14:30 Neva Palacio 12/03/23 14:30 Normal [facility] Main OR Preoperative Recordo n 12-03-2023 Main OR Preoperative Record Main OR Preoperative Record Holding Area Document Type FTURO Summary Primary Physician: Cayden GALLO MD Finalized Date/Time: 12/03/23 14:21:15 Pt. Name: AARON LEWIS Flori Muñiz./Sex: 1945 Female Med Rec #: [id number] Physician: Cayden GALLO MD Financial #: [id number] Pt. Type: O Room/Bed: / Admit/Disch: 12/03/23 [...] Complaints of Pain: No Skin Integrity Intact, [place], Warm, & Dry Vitals - EU Blood Pressure 125/72 Pulse 100 bpm Respirations 20 br/min SPO2 95 % Additional Other (See Comment) Specimens Comment ua dip Specimens Collected RN Reviewed Yes Last Modified By: Neva Palacio 12/03/23 14:20:47 Finalized By: Neva Palacio Document Signatures Signed By: Neva Palacio 12/03/23 14:20 Neva Palacio 12/03/23 14:20 Au SableGypsy wade LPN 12/03/23 14:03 Neva Palacio 12/03/23 14:21 Normal [facility] Operative Reporton Operative Report Operative Report Patient: AARON LEWIS Age: 78 years Sex: Female : 1945 Associated Diagnoses: None Author: Cayden GALLO MD Procedure Operative Information Details: Date/ Time: 12/03/2023 14:28:00. 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 Post-Op Dx: Same. Anesthesia [...] weeks. Finish abx. . Normal [facility] Comment on above: Result Comment: Elec tronically Signed By: Cayden GALLO MD\.br\Date and Time Signed: 12/03/23 14:29 EDT Outpatient Surgery Discharge Instructionon 12-03-2023 Outpatient Surgery Discharge Instruction Outpatient Surgery Discharge Instruction [place] [id number] Patient Discharge Instructions PERSON INFORMATION Name: AARON [...] Follow up: With: Address: When: BRENDA MARIN [address] [place] [phone] [facility] (1) Comments: Call for followup appointment with [...] you have a fever over 100 degrees. TAHIRA Zhang CYNTHIA J, have received the attached patient education materials/instructions and have verbalized understanding: May we do a follow up call? Yes No I was present when discharge instructions were given Patient Signature ___ Date Clinican/Nurse Signature Date You may receive [...] for choosing [facility] Normal [facility] Ambulatory Visit Summaryon 0 09-26-2023 Ambulatory [...] BRENDA MARIN PA-C, URL When: Comments: flaquita dietz MD Where: [address] [place] [address] [phone] Medications What How Much When Instructions Unchanged [...] including vitamins, herbs, eye drops, creams, and yhly-vcf-dhdwzum medicines. ? Any problems you or family [...] (more content not included)... Normal [facility] Patient Educationon 09-26-19 Patient Education Urology [...] including vitamins, herbs, eye drops, creams, and lpji-jwf-jqtnsuc medicines. ? Any problems you or family [...] tells you to take them. ? Taking gwvd-hjr-piyxtwu medicines, vitamins, herbs, and supplements. General instructions [...] these instructions at home: Medicines ? Take csrn-yyo-elxccge and prescription medicines only as told by [...] (more content not included)... Normal [facility] Urology Office/Clinic Noteon 09-26-2023 Urology Office/Clinic [...] this. Does not leak. Very bothered by frequency/urgency/nocturi a. Rx sent for Gemtesa/Myrbetriq at prior OV. [...] When Contact Information BRENDA MARIN PA-C, URL [address] [place] [address] [phone] Additional Instructions: sched Botox w/ MD Patient Education Botulinum Toxin Bladder Injection Documentation [...] (more content not included)... Normal [facility] Comment on above: Result Comment: Elec [...] Duration: 30 Days Refills: 11 Pickup at [facility]/pharmacy #[id number] New vibegron (Gemtesa 75 mg oral tablet) 1 Tablets By Mouth Every day Urethral stricture OAB (overactive bladder) Recurrent UTI Duration: 30 Days Refills: 11 Pickup at [facility]/pharmacy #[id number] Unchanged acetaminophen-oxycodone (acetaminophen-oxycodone 325 mg-2.5 mg oral [...] Capsules By Mouth Every day Pharmacy Information [facility]/pharmacy #[id number]: [address], [place] [phone] Allergies No Known Allergies Problems Ongoing - [...] you for choosing us for your care. [facility] Patient Educationon 08-28-19 Patient Education Obstetrics [...] health care provider. General instructions ? Take xxag-otr-pydavux and prescription medicines only as told by [...] (more content not included)... Normal [facility] Urology Office/Clinic Noteon 08-28-2023 Urology Office/Clinic [...] not leak she is very bothered by frequency/urgency/nocturi a. Has failed Ditropan, Tolterodine, and Vesicare. Does [...] day(s), # 30 tab(s), Refills(s) 11, Pharmacy: [facility]/pharmacy #[id number], 165, cm, 08/28/23 15:03:00 EDT, Height/Length Dosing, 90, kg, 08/28/23 15:03:00 EDT, Weight Dosing vibegron, 75 mg = 1 tab(s), Oral, Daily, X 30 day(s), # 30 tab(s), Refills(s) 11, [id number], 165, cm, 08/28/23 15:03:00 EDT, Height/Length Dosing, 90, kg, 08/28/23 15:03:00 EDT, Weight Dosing 45664 Measure Post Void residual urine and/or bladder capacity by US- non-imaging Body Mass Index (BMI) documented 3008F Complex E&M Add on G2211 Current tobacco non-user 1036F Depression Screening Negative 3352F E&M of Est. Patient Moderate 30-39 Min 84075 Influenza immunization status assessed 1030F Medication list [...] Urnls Dip Stick Auto w/o Microscopy POC 75665 2. Urethral stricture (N35.919: Unspecified urethral stricture, [...] day(s), # 30 tab(s), Refills(s) 11, Pharmacy: [facility]/pharmacy #[id number], 165, cm, 08/28/23 15:03:00 EDT, Height/Length Dosing, 90, kg, 08/28/23 15:03:00 EDT, Weight Dosing vibegron, 75 mg = 1 tab(s), Oral, Daily, X 30 day(s), # 30 tab(s), Refills(s) 11, Pharmacy: [facility]/pharmacy #[id number], 165, cm, 08/28/23 15:03:00 EDT, Height/Length Dosing, 90, kg, 08/28/23 15:03:00 EDT, Weight Dosing 54578 Measure Post Void residual urine and/or bladder capacity by US- non-imaging Body Mass Index (BMI) documented 3008F Complex E&M Add on G2211 Current tobacco non-user 1036F Depression Screening Negative 3352F E&M of Est. Patient Moderate 30-39 Min 37633 Influenza immunization status assessed 1030F Medication list [...] Coli, 50k Proteus (more content not included)... [facility] Comment on above: Result Comment: Elec tronically Signed By: MIAH ROE, BRENDA Poole\.br\Date and Time Signed: 08/28/23 15:38 EDT Physician Orderon 08-02-2023 Physician Order [id number]#1.00TIFF [facility] Consent for Procedure/Surger yon 07-23-2023 Consent for Procedure/Surgery [id number]#1.00TIFF [facility] Consent for Treatmenton 07-12 Consent for Treatment [id number]#1.00TIFF [facility] Inpatient Patient Summaryon 07-23-2023 Inpatient Patient Summary [address] [address] Clinical Summary Person Information Name: AARON LEWIS Age: 78 Years : 1945 Sex: Female PCP: JEREMIAH REED MD Marital Status: Phone: [phone] Race: White Ethnicity: Non- or Language: Lithuanian Visit Id: Visit Reason: URETHER STRICTURE AND RECURRENT UTI Speciality: Acuity: Enc Type: Outpatient Med Service: Surgery Arrival: 07/23/2023 13:44:06 Discharge: Dispo Type: Address: [address] [place] [address] [address] [place] [phone] Provider Notes: Diagnosis: Problems Active Recurrent UTI [...] Follow up: With: Address: When: BRENDA MIAH [address] [place] [address] [address] [facility] [place] [phone] Business (1) Comments: Call for followup appointment with Georgette Marin PA-c within the next 2 months or so to monitor you. Please finish your antibiotics and have a great day. Patient Education Information: EU - Cystoscopy with Urethral Dilation Discharge Instructions (Custom) Normal [facility] IntraOperative Documentson 0 07-23-2023 IntraOperative Documents [id number]#1.00TIFF Normal [facility] Main OR Intraoperative Recor don 07-23-2023 Main OR Intraoperative Record IntraOp Document Type FTURO Summary Primary Physician: Cayden GALLO MD Finalized Date/Time: 07/23/23 14:33:02 Pt. Name: TAHIRAAARON/Sex: 1945 Female Med Rec #: [id number] Physician: Cayden GALLO MD Financial #: [id number] Pt. Type: O Room/Bed: / Admit/Disch: 07/23/23 [...] Son Tellez Role Performed Surgeon - Primary Asp Net Mvc Developer - Primary Scrub - Primary Time In [...] Yes Primary Surgeon Cayden GALLO MD Start 07/23/23 14:07:00 Stop 07/23/23 14:26:00 Anesthesia Type Local Surgical Service Urology Wound Class 2 - Clean-Contaminated Last Modified By: Crissy Borja RN 07/23/23 14:26:26 General Case Data FTURO Pre-Care [...] Borja RN 07/23/23 14:33 Normal [facility] Main OR Preoperative Recordo n 07-23-2023 Main OR Preoperative Record Holding Area Document Type FTURO Summary Primary Physician: Cayden GALLO MD Finalized Date/Time: 07/23/23 14:14:06 Pt. Name: TAHIRAAARON/Sex: 1945 Female Med Rec #: [id number] Physician: Cayden GALLO MD Financial #: [id number] Pt. Type: O Room/Bed: / Admit/Disch: 07/23/23 [...] RN, Ruthann 07/23/23 14:14 Normal [facility] Operative Reporton Operative Report Patient: AARON LEWIS Age: 78 years Sex: Female : 1945 Associated Diagnoses: None Author: Cayden GALLO MD Procedure Operative Information Details: Date/ Time: 07/23/2023 14:29:00. Pre-Op Dx: Recurrent UTI (VPF05-TA N39.0, Working, Medical), Unspecified urethral stricture, female (MUH12-EY N35.92, Working, Medical), Overactive bladder (CFD35-OB N32.81, Working, Medical). Post-Op Dx: Same. Anesthesia [...] urine. The Urethra was dilated to: 30 Swedish w/ sounds. Devices Implanted: None. Removal: Cystoscope is removed, The patient tolerated it well. Postoperative Information Discharge: Patient is discharged home with antibiotic coverage, Follow up arranged, F/U with Georgette Marin PA-C within the next 2-3 months. Monitor the urinary flow pattern. The goal is also to decrease UTI frequency. . Normal [facility] Comment on above: Result Comment: Elec tronically Signed By: Cayden GALLO MD\.br\Date and Time Signed: 07/23/23 14:30 EDT Outpatient Surgery Discharge Instructionon 07-23-2023 Outpatient Surgery Discharge Instruction [address] [address] Patient Discharge Instructions PERSON INFORMATION Name: AARON LEWIS Date of : 1945 Current Date: 07/23/2023 14:28:53 PHYSICIANS Admitting Physician: Cayden GALLO MD Comment: Discharge Diagnosis: TAHIRA AARON Flori has been given the following list of follow-up instructions, prescriptions, and patient education materials: IF UNABLE TO CONTACT YOUR PHYSICIAN AND YOU FEEL IT IS AN EMERGENCY, GO TO THE NEAREST EMERGENCY ROOM OR CALL 911 Follow up: With: Address: When: BRENDA MARIN [address] [place] [phone] [facility] (1) Comments: Call for followup appointment with [...] when discharge instructions were given Patient Signature ___ Date Clinican/Nurse Signature Date You may receive [...] for choosing [facility] Normal [facility] C Urineon 07-11-2023 Bacteria identified Cx Nom (U) Microbiology PROCEDURE: Urine Culture [R1] SOURCE: U CleanCatch BODY SITE: COLLECTED DATE/TIME: 07/09/2023 11:55 EST RECEIVED DATE/TIME: 07/09/2023 18:11 EST START DATE/TIME: 07/09/2023 18:11 EST FREE TEXT SOURCE: BRENDA MARIN PA-C, PA-C, BRENDA Poole FINAL REPORTS Final Report [] Verified Date/Time: 07/11/2023 10:48 EST 20,000 cfu/ml Escherichia coli 10,000 cfu/ml Proteus mirabilis SUSCEPTIBILITY RESULTS __ LEGEND: S=Susceptible, N/R=Not Reported, Blank=Data not available, [...] Locations R1: This test was performed at: [facility], [address] [place] [address], [address] , [place], Normal [facility] Comment on above: Performed By: #### 2 [id number] ####[facility] [address] [place] [address] Ambulatory Visit Summaryon 0 07-09-2023 Ambulatory Visit [...] Follow-Up Appointments Sunday 9:00 AM EST Where: [facility] Sunday 2:30 PM EDT Where: [facility] Medications What How [...] us for your care. Normal [facility] C Urineon 06-07-2023 Bacteria identified Cx Nom (U) Microbiology PROCEDURE: Urine Culture [R1] SOURCE: U CleanCatch BODY SITE: COLLECTED DATE/TIME: 06/05/2023 13:47 EST RECEIVED DATE/TIME: 06/05/2023 17:49 EST START DATE/TIME: 06/05/2023 17:49 EST FREE TEXT SOURCE: BRENDA MARIN PA-C, PA-C, BRENDA Poole FINAL REPORTS Final Report [] Verified Date/Time: 06/07/2023 08:50 EST >100,000 cfu/ml Escherichia coli SUSCEPTIBILITY RESULTS __ LEGEND: S=Susceptible, N/R=Not Reported, Blank=Data not available, [...] Locations R1: This test was performed at: [facility], [address] [place] [address], [facility]- , , [facility] Comment on above: Performed By: #### 2 [id number] ####[place] [address] [place] [address] Screenson 06-06-2023 Screens [id number]#1.00TIFF [facility] Ambulatory Visit Summaryon 0 06-05-2023 Ambulatory [...] Follow Up with CEZAR BERNAL, Cayden Hollins, CASSIE When: Where: [address] [place] [address] [place] [address] Medications What How Much When Instructions Unchanged [...] The main (more content not included)... Normal [facility] Patient Educationon 06-05-19 Patient Education Urology [...] Follow these instructions at home: ? Take awpv-sgr-cskvoaw and prescription medicines only as told by [...] provider. Document Revised: 03/07/2022 Document Reviewed: 03/07/2022 [employer] Patient Education ? 2022 [employer] [facility]. 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 Getting up 3-4x/night, every night. Denies current pain/burning and visible blood in urine. States she has had 2 UTI's since April. Was hospitalized back in March @ [facility] due to [place]. (No C&S at [facility]) Also at [place]. C&S 03/24/23 *>100k E Coli & 50-60k [...] done 06/16/[address] Moreno. Reports worsening frequency/urgency/nocturi a despite no changes in intake. Reports increased [...] available) Was hospitalized back in March @ [facility] due to [place]. (No C&S at [facility]) Also at [place]. UA today shows trace-intact blood, positive nitrates and large leuks. -Culture to be sent today -Pt to be called w/ results & tx'd at that time, no empiric abx sent today. Persistent UTI could certainly be contributing to her sx. Ordered: Urine Culture 3. OAB (overactive bladder) (N32.81: Overactive bladder) BBS 14, although pt states she does not leak. Bothered by frequency/urgency/nocturi a. Has failed Ditropan and Tolterodine. Pt stated [...] evening fluids and reducing bladder irritants. Ordered: [id number] Measure Post Void residual urine and/or bladder [...] Urnls Dip Stick Auto w/o Microscopy POC 91301 Follow-up With When Contact Information CEZAR BERNAL, Cayden Hollins, URL [address] [address]- Additional Instructions: Schedule cysto/UD Patient Education Urethral [...] (more content not included)... Normal [facility] Comment on above: Result Comment: Elec tronically Signed By: BRENDA MARIN PA-C\.br\Date and Time Signed: 06/05/23 17:59 EST\.br\Electronically Co-Signed By: Doir Mantilla.br\Date and Time Co-Signed: 06/05/23 13:35 EST CHEMISTRYOrdered By: SYSTEM SYSTEM on 04-13-2023 Anion gap [Moles/Vol] 14 mmol/L Normal 6 - 16 mEq/L [facility] Remisol Calcium [Mass/Vol] 9.1 mg/dL Normal 8.9 [...] 47 mL/min/1.73 m2 Low >=59mL/min /1.73 m2 [facility] Chem S Comment on above: Interpretive Data: [...] 106 mg/dL Normal <=149mg/dL [facility] Remisol Urea nitrogen [Mass/Vol] 29 mg/dL High [...] 29 mL/min/1.73 m2 Low >=59mL/min /1.73 m2 [facility] Chem S Comment on above: Interpretive Data: [...] 7.7 g/dL Normal 6.0 - 7.8 gm/dL [facility] Remisol Sodium [Moles/Vol] 144 mmol/L Normal [...] Sensitivity Troponin I Instructions For Use, [employer], December 2017) TSH Qn 0.52 m[IU]/L Normal 0.34 - 5.60 mcIU/mL FT Remisol Urea nitrogen [Mass/Vol] 39 mg/dL High 5 - 21 mg/dL FT Remisol Urea nitrogen/Creatinine [Mass ratio] 22 mg/mg High 10 - 20 FT Remisol CHEMISTRYOrdered By: Shauna kendall on 04-12-2023 HbA1c (Bld) [Mass fraction] 5.9 % Normal <=5.9% [facility] ChemAutoSS CHEMISTRYOrdered By: Crystal ROP User on 04-12-2023 Glucose [Mass/Vol] 88 mg/dL Normal 55 - 99 mg/dL [facility] POC Subsection Comment on above: Result Comment: Jose matos RN/ POC Username [place] Invalid Interpretation Code [facility] POC Subsection Sodium [Moles/Vol] [id number] mmol/L Invalid Interpretation Code [facility] POC Subsection Sodium [Moles/Vol] [id number] mmol/L Invalid Interpretation Code [facility] POC Subsection COAGULATIONOrdered By: Myra Grayson on 04-12-2023 aPTT Coag (PPP) [Time] 29.5 s Normal 25.1 - 36.5 second(s) [facility] Auto Coag Comment on above: Interpretive Data: [...] from a study by Mc Jaquez et alCarlos prepared from 1437 samples obtained at 7 different centers using the same coagulation reagent and instrumentation as [facility]. Currently there are no coagulation studies available worldwide for children to 14 days, and no normal ranges. Heparin therapeutic range (represented by Anti-Factor Xa activity of 0.2 - 0.4 U/mL) corresponds to PTT of 56.6 - 109.0 sec. INR Coag (PPP) [Relative time] 0.9 {INR} Invalid Interpretation Code [facility] Auto Coag Comment on above: Interpretive Data: I NR results are specifically intended to assess patients stabilized on long-term Anticoagulation therapy suggested INR s Less Intensive Anticoagulation 2.0 3.0 Conventional Range 3.0 4.5 PT Coag (PPP) [Time] 10.4 s Normal 9.4 - 1 2.5 second(s) [facility] Auto Coag Comment on above: Interpretive Data: [...] the same coagulation reagent and instrumentation as [facility]. Currently there are no coagulation studies available worldwide for children to 14 days, and no normal ranges. HEMATOLOGYOrdered By: SYSTEM SYSTEM on 04-12-2023 Basophils/100 WBC (Bld) 0.4 % Normal 0.0 - 2.0 % [facility] HemeAutoSS Basophils/Leukocytes Auto (Bld) [Pure # fraction] [...] Interpretation Code Negative [facility] UA Auto SS Angwin.plasma/Angwin. RBC (Bld) [Mass ratio] 0-3 /HPF Normal [...] Spec Desc Catheter (04/12/23 2:32 PM) Normal [facility] UA Auto SS Urobilinogen Qn (U) [id number] {Nevaeh'U}/dL Normal 0.0 - 1.0 EU/dL [facility] UA Auto SS WBC Auto Ql (U) Negative (04/12/23 2:32 PM) Normal Negative [facility] UA Auto SS WBC casts LM.LPF (Urine sed) [#/Area] 0-3 (04/12/23 2:32 PM) Normal [facility] UA Auto SS WBC LM.HPF (Urine sed) [#/Area] 0-5 /HPF Normal 0-5/HPF [facility] UA Auto SS XR CSPINE OBL FLEX_EXTon [...] by: Serena TEJEDA Date: 2022-09-02 00:37 Normal [facility] MRI SHOULDER RT WO CONon MRI [...] by: EHSAN MILLER Date: 2022-08-22 09:25 Normal [facility] XR SHOULDER RT 2V or >on [...] by: BRENT MALDONADO Date: 2022-08-10 22:45 Normal [facility] CT CHEST WO CONon 06-12-2022 CT [...] EHSAN MILLER Date: 2022-06-12 16:56 Normal [facility] VIT D 1 25 DIHYDROXYon 04-24 Calcitriol(1,25 di-OH Vit D) 91.0 pg/mL Critically high 24.8-81.5 [facility] Comment on above: Performed By: #### V [id number] #### [facility] [address] [place] [address] Dr. Helio Cee CULTURE URINEon 04-23-2022 CULTURE [...] <=0.12 S F Nitrofurantoin <=16 S F Trimethoprim/Sulfamethoxa zole <=20 S F Normal [facility] Comment on above: Performed By: #### U RCX #### [facility] [address] [place] [address] Dr. Helio Cee CBC AUTO DIFFon 04-21-2022 BASO # 0.0 103/ul Normal 0.0-0.1 [facility] Comment on above: Performed By: #### E RUR #### [facility] [address] [address] [address] Helio Cee Basophils/100 WBC (Bld) 0.4 % Normal 0.2-2.0 [facility] Comment on above: Performed By: #### E RUR #### [facility] [address] [place] [address] Dr. Helio Cee EO # 0.4 103/ul Normal 0.0-0.7 [facility] Comment on above: Performed By: #### E RUR #### [facility] [address] [place] [address] Dr. Helio Cee Eosinophils/100 WBC (Bld) 4.0 % Normal 0.9-7.0 [facility] Comment on above: Performed By: #### E RUR #### [facility] [address] [place] [address] Dr. Helio Cee Erythrocyte distribution width (RBC) [Ratio] 15.2 % Critically high 11.0-15.0 [facility] Comment on above: Performed By: #### E RUR #### [facility] [address] [place] [address] Dr. Helio Cee Hematocrit (Bld) [Volume fraction] 41.0 % Normal 36.0-48.0 [facility] Comment on above: Performed By: #### E RUR #### [facility] [address] [place] [address] Dr. Helio Cee Hemoglobin (Bld) [Mass/Vol] 12.9 g/dL Normal 12.0-16.0 [facility] Comment on above: Performed By: #### E RUR #### [facility] [address] [place] [address] Dr. Helio Cee IG # 0.04 10e3/ul Critically high 0.00-0.[address] [facility] Comment on above: Performed By: #### E RUR #### [facility] [address] [place] [address] Dr. Helio Cee IG % 0.4 % Normal 0.0-0.5 [facility] Comment on above: Performed By: #### E RUR #### [facility] [address] [address] [address] Helio Cee LYMPH # 1.1 103/ul Critically low 1.2-3.8 [facility] Comment on above: Performed By: #### E RUR #### [facility] [address] [address] [address] Helio Cee Lymphocytes/100 WBC (Bld) 11.9 % Critically low 20.5-60.0 [facility] Comment on above: Performed By: #### E RUR #### [facility] [address] [address] [address] Helio Cee MANUAL DIFF REQ NO Normal [facility] Comment on above: Performed By: #### E RUR #### [facility] [address] [place] [address] Dr. Helio Cee MCH (RBC) [Entitic mass] 29.0 pg Normal 26.7-34.0 [facility] Comment on above: Performed By: #### E RUR #### [facility] [address] [place] [address] Dr. Helio Cee MCHC (RBC) [Mass/Vol] 31.5 g/dL Normal 29.9-35.2 [facility] Comment on above: Performed By: #### E RUR #### [facility] [address] [place] [address] Dr. Helio Cee MCV (RBC) [Entitic vol] 92.1 fL Normal 81.0-99.0 [facility] Comment on above: Performed By: #### E RUR #### [facility] [address] [address] [address] Helio Cee MONO # 0.4 103/ul Normal 0.3-0.8 [facility] Comment on above: Performed By: #### E RUR #### [facility] [address] [address] [address] Helio Cee Monocytes/100 WBC (Bld) 4.4 % Normal 1.7-12.0 [facility] Comment on above: Performed By: #### E RUR #### [facility] [address] [address] [address] Helio Cee NEUT # 7.3 103/ul Critically high 1.4-6.5 [facility] Comment on above: Performed By: #### E RUR #### [facility] [address] [address] [address] Helio Cee Neutrophils/100 WBC (Bld) 78.9 % Critically high 43.0-75.0 [facility] Comment on above: Performed By: #### E RUR #### [facility] [address] [address] [address] Helio Cee Platelet mean volume (Bld) [Entitic vol] 10.6 fL Normal 9.5-13.5 [facility] Comment on above: Performed By: #### E RUR #### [facility] [address] [address] [address] Helio Cee PLT 269 103/ul Normal 150-450 [facility] Comment on above: Performed By: #### E RUR #### [facility] [address] [address] [address] Helio Cee RBC 4.45 106/ul Normal 4.20-5.40 [facility] Comment on above: Performed By: #### E RUR #### [facility] [address] [address] [address] Helio Cee WBC 9.2 103/ul Normal 4.0-11.0 [facility] Comment on above: Performed By: #### E RUR #### [facility] [address] [address] [address] Helio Cee LIPID PROFILEon 04-21-2022 CHOL-HDL RATIO NORM SEE BELOW Normal [facility] Comment on above: Result Comment: 3.3 - 4.4 LOW RISK 4.4 - 7.1 AVERAGE RISK 7.1 - 11.0 MODERATE RISK >11.0 HIGH RISK Performed By: #### T SH, LIPID, CMP ####[facility] [address] [id number]. Helio Cee Cholesterol [Mass/Vol] 146 mg/dL Normal <=200 [facility] Comment on above: Performed By: #### T CAITLIN, LIPID, CMP ####[facility] [address] [id number]. Helio Cee Cholesterol in HDL [Mass/Vol] 63 mg/dL Critically high 40-60 [facility] Comment on above: Performed By: #### T SH, LIPID, CMP ####[facility] [address] [id number]. Claudettemagan Cee Cholesterol in LDL [Mass/Vol] 66.6 mg/dL Normal [facility] Comment on above: Performed By: #### T CAITLIN, LIPID, CMP ####[facility] [address] [address]Dr. Helio Cee Cholesterol.total/Lisa sterol in HDL [Mass ratio] 2.3 {ratio} Normal [facility] Comment on above: Performed By: #### T CAITLIN, LIPID, CMP ####[facility] [address] [id number]. Helio Cee HDL NORMAL > or = 60 mg/dl - LO W CARDIOVASCULAR RISK <40 mg/dl - HIGH CARDIOVASCULAR RISK Normal [facility] Comment on above: Performed By: #### T CAITLIN, LIPID, CMP ####[facility] [address] [id number]. Helio Cee LDL CALC NORMAL SEE BELOW Normal [facility] Comment on above: Result Comment: <100 mg/dl OPTIMAL 100 - 129 mg/dl NEAR OR ABOVE OPTIMAL 130 - 159 mg/dl BORDERLINE HIGH 160 - 189 mg/dl HIGH >190 mg/dl VERY HIGH Performed By: #### T SH, LIPID, CMP ####[facility] [address] [id number]. Helio Cee Triglyceride [Mass/Vol] 82 mg/dL Normal <=150 [facility] Comment on above: Performed By: #### T SH, LIPID, CMP ####[facility] [address] [place], [place] [address]Dr. Helio Cee VLDL CALC 16.4 mg/dL Normal [facility] Comment on above: Performed By: #### T CAITLIN LIPID, CMP ####[facility] [address] [address]Dr. Helio Cee PROF 14(COMP METB)on 022 Albumin [Mass/Vol] 3.5 g/dL Normal 3.4-5.0 [facility] Comment on above: Performed By: #### T CAITLIN LIPID, CMP ####[facility] [address] [address]Dr. Claudettemagan Cee Albumin/Globulin [Mass ratio] 1.0 {ratio} Normal [facility] Comment on above: Performed By: #### T CAITLIN LIPID, CMP ####[facility] [address] [address]Dr. Claudettemagan Cee ALP [Catalytic activity/Vol] 98 U/L Normal 46-116 [facility] Comment on above: Performed By: #### T CAITLIN LIPID, CMP ####[facility] [address] [address]Dr. Claudettemagan Cee ALT [Catalytic activity/Vol] 23 U/L Normal 14-59 [facility] Comment on above: Performed By: #### T CAITLIN LIPID, CMP ####[facility] [address] [address]Dr. Claudettemagan Cee Anion gap [Moles/Vol] 12.2 mmol/L Normal [facility] Comment on above: Performed By: #### T CAITLIN LIPID, CMP ####[facility] [address] [address]Dr. Claudettemagan Cee AST [Catalytic activity/Vol] 15 U/L Normal 15-37 [facility] Comment on above: Performed By: #### T CAITLIN LIPID, CMP ####[facility] [address] [address]Dr. Helio Cee Bilirubin [Mass/Vol] 0.5 mg/dL Normal 0.2-1.0 [facility] Comment on above: Performed By: #### T SH, LIPID, CMP ####[facility] [address] [address]Dr. Helio Cee Calcium [Mass/Vol] 9.0 mg/dL Normal 8.5-10.1 [facility] Comment on above: Performed By: #### T SH, LIPID, CMP ####[facility] [address] [address]Dr. Helio Cee Chloride [Moles/Vol] 109 mmol/L Critically high 98-107 [facility] Comment on above: Performed By: #### T SH, LIPID, CMP ####[facility] [address] [address]Dr. Helio Cee CO2 [Moles/Vol] 26.5 mmol/L Normal 21.0-32.0 [facility] Comment on above: Performed By: #### T SH, LIPID, CMP ####[facility] [address] [place], [place] [address]Dr. Helio Cee Creatinine [Mass/Vol] 1.22 mg/dL Critically high 0.55-1.02 [facility] Comment on above: Performed By: #### T SH, LIPID, CMP ####[facility] [address] [place], [place] [address]Dr. Helio Cee EGFR-AF [place] 52 mL/min/1.73m2 Critically low >=60 [facility] Comment on above: Performed By: #### T SH, LIPID, CMP ####[facility] [address] [place], [place] [address]Dr. Helio Cee EGFR-NON AF [place] 43 mL/min/1.73m2 Critically low >=60 [facility] Comment on above: Performed By: #### T SH, LIPID, CMP ####[facility] [address] [place], [place] [address]Dr. Helio Cee Globulin (S) [Mass/Vol] 3.4 g/dL Normal [facility] Comment on above: Performed By: #### T SH, LIPID, CMP ####[facility] [address] [place], [place] [address]Dr. Helio Cee Glucose [Mass/Vol] 103 mg/dL Normal 74-106 [facility] Comment on above: Performed By: #### T CAITLIN, LIPID, CMP ####[facility] [address] [address]Dr. Helio Cee Potassium [Moles/Vol] 4.7 mmol/L Normal 3.5-5.1 [facility] Comment on above: Performed By: #### T CAITLIN, LIPID, CMP ####[facility] [address] [address]Dr. Helio Cee Protein [Mass/Vol] 6.9 g/dL Normal 6.4-8.2 [facility] Comment on above: Performed By: #### T CAITLIN LIPID, CMP ####[facility] [address] [place], [place] [address]Dr. Helio Cee Sodium [Moles/Vol] 143 mmol/L Normal 136-145 [facility] Comment on above: Performed By: #### T CAITLIN, LIPID, CMP ####[facility] [address] [address]Dr. Helio Cee Urea nitrogen [Mass/Vol] 22.0 mg/dL Critically high 7.0-18.0 [facility] Comment on above: Performed By: #### T CAITLIN LIPID, CMP ####[facility] [address] [place], [place] [address]Dr. Helio Cee Urea nitrogen/Creatinine [Mass ratio] 18.0 mg/mg Normal [facility] Comment on above: Performed By: #### T CAITLIN, LIPID, CMP ####[facility] [address] [address]Dr. Helio Cee TSHon 04-21-2022 TSH 0.592 uIU/mL Normal 0.358-3.74 0 [facility] Comment on above: Performed By: #### T CAITLIN, LIPID, CMP ####[facility] [address] [address]Dr. Helio Cee UA RANDOM W/MICROSCOPICon BACTERIA NONE SEEN Normal NONE SEEN [facility] Comment on above: Performed By: #### U AMIC ####[facility] [address] [address]Dr. Claudettemagan Cee Bilirubin Ql (U) Negative Normal NEGATIVE [facility] Comment on above: Performed By: #### U AMIC ####[facility] [address] [address]Dr. Claudettemagan Cee CAST NONE SEEN Normal NONE SEEN [facility] Comment on above: Performed By: #### U AMIC ####[facility] [address] [address]Dr. Helio Cee Clarity (U) CLEAR Normal CLEAR [facility] Comment on above: Performed By: #### U AMIC ####[facility] [address] [place], [place] [address]Dr. Helio Cee Color (U) DK. YELLOW Normal YELLOW [facility] Comment on above: Performed By: #### U AMIC ####[facility] [address] [place], [place] [address]Dr. Helio Cee Crystals LM Nom (Urine sed) NONE SEEN Normal NONE SEEN [facility] Comment on above: Performed By: #### U AMIC ####[facility] [address] [place], [place] [address]Dr. Claudettemagan Coleman Epithelial cells LM Ql (Urine sed) RARE Normal NONE SEEN /RARE [facility] Comment on above: Performed By: #### U AMIC ####[facility] [address] [place], [place] [address]Dr. Helio Cee Glucose Ql (U) Negative Normal NEGATIVE [facility] Comment on above: Performed By: #### U AMIC ####[facility] [address] [address]Dr. Helio Cee Hemoglobin Ql (U) Negative Normal NEGATIVE [facility] Comment on above: Performed By: #### U AMIC ####[facility] [address] [place], [place] [address]Dr. Helio Cee Ketones Ql (U) Negative Normal NEGATIVE [facility] Comment on above: Performed By: #### U AMIC ####[facility] [address] [address]Dr. Helio Cee LEUKOCYTES Negative Normal NEGATIVE [facility] Comment on above: Performed By: #### U AMIC ####[facility] [address] [address]Dr. Helio Cee MUCOUS TRACE Abnormal NONE SEEN [facility] Comment on above: Performed By: #### U AMIC ####[facility] [address] [address]Dr. Helio Cee Nitrite Ql (U) Negative Normal NEGATIVE [facility] Comment on above: Performed By: #### U AMIC ####[facility] [address] [address]Dr. Helio Cee pH (U) 5.5 [pH] Normal 5-9 [facility] Comment on above: Performed By: #### U AMIC ####[facility] [address] [place], [place] [address]Dr. Helio Coleman RBC 0-2 Normal 0-2 [facility] Comment on above: Performed By: #### U AMIC ####[facility] [address] [address]Dr. Helio Cee SPEC GRAVITY >=1.030 Abnormal 1.005-<=1. 025 [facility] Comment on above: Performed By: #### U AMIC ####[facility] [address] [address]Dr. Helio Cee UA PROTEIN TRACE Normal NEGATIVE/ TRACE [facility] Comment on above: Performed By: #### U AMIC ####[facility] [address] [address]Dr. Claudettemagan Cee Urobilinogen Qn (U) 1.0 {Nevaeh'U}/dL Normal 0.2 - 1. 0 [facility] Comment on above: Performed By: #### U AMIC ####[facility] [address] [address]Dr. Claudettemagan Cee WBC NONE SEEN Normal NONE SEEN [facility] Comment on above: Performed By: #### U AMIC ####[facility] [address] [place], [place] [address] CHEST WO CONon 02-22-2022 [...] EHSAN MILLER Date: 2022-02-22 16:51 Normal [facility] HEMOGLOBINon 02-22-2022 Hemoglobin (Bld) [Mass/Vol] 13.6 g/dL Normal 12.0-16.0 [facility] Comment on above: Performed By: #### V POS926 #### [facility] [address] [place], [place] [address] Dr. Heilo Cee XR TIB_FIB RT 2Von 2 XR [...] by: BRENT LONG Date: 2022-01-07 21:52 Normal [facility] BNPon 11-22-2021 Natriuretic peptide B (Bld) [Mass/Vol] 1469.0 pg/mL Critically high <=900.0 [facility] Comment on above: Performed By: #### C VDTB #### [facility] [address] [place] [address] Dr. Helio Cee CBC AUTO DIFFon 11-22-2021 BASO # 0.1 103/ul Normal 0.0-0.1 [facility] Comment on above: Performed By: #### E RUR #### [facility] [address] [place] [address] Dr. Helio Cee Basophils/100 WBC (Bld) 0.7 % Normal 0.2-2.0 [facility] Comment on above: Performed By: #### E RUR #### [facility] [address] [place] [address] Dr. Helio Cee EO # 0.2 103/ul Normal 0.0-0.7 [facility] Comment on above: Performed By: #### E RUR #### [facility] [address] [place] [address] Dr. Helio Cee Eosinophils/100 WBC (Bld) 1.9 % Normal 0.9-7.0 [facility] Comment on above: Performed By: #### E RUR #### [facility] [address] [place] [address] Dr. Helio Cee Erythrocyte distribution width (RBC) [Ratio] 14.3 % Normal 11.0-15.0 [facility] Comment on above: Performed By: #### E RUR #### [facility] [address] [place] [address] Dr. Helio Cee Hematocrit (Bld) [Volume fraction] 37.9 % Normal 36.0-48.0 [facility] Comment on above: Performed By: #### E RUR #### [facility] [address] [place] [address] Dr. Helio Cee Hemoglobin (Bld) [Mass/Vol] 12.0 g/dL Normal 12.0-16.0 [facility] Comment on above: Performed By: #### E RUR #### [facility] [address] [address] [address] Helio Cee IG # 0.10 10e3/ul Critically high 0.00-0.[address] [facility] Comment on above: Performed By: #### E RUR #### [facility] [address] [place] [address] Dr. Helio Cee IG % 1.1 % Critically high 0.0-0.5 [facility] Comment on above: Performed By: #### E RUR #### [facility] [address] [place] [address] Dr. Helio Cee LYMPH # 0.9 103/ul Critically low 1.2-3.8 [facility] Comment on above: Performed By: #### E RUR #### [facility] [address] [place] [address] Dr. Helio Cee Lymphocytes/100 WBC (Bld) 10.1 % Critically low 20.5-60.0 [facility] Comment on above: Performed By: #### E RUR #### [facility] [address] [place] [address] Dr. Helio Cee MANUAL DIFF REQ NO Normal [facility] Comment on above: Performed By: #### E RUR #### [facility] [address] [place] [address] Dr. Helio Cee MCH (RBC) [Entitic mass] 29.8 pg Normal 26.7-34.0 [facility] Comment on above: Performed By: #### E RUR #### [facility] [address] [place] [address] Dr. Helio Cee MCHC (RBC) [Mass/Vol] 31.7 g/dL Normal 29.9-35.2 [facility] Comment on above: Performed By: #### E RUR #### [facility] [address] [place] [address] Dr. Helio Cee MCV (RBC) [Entitic vol] 94.0 fL Normal 81.0-99.0 [facility] Comment on above: Performed By: #### E RUR #### [facility] [address] [place] [address] Dr. Helio Cee MONO # 0.7 103/ul Normal 0.3-0.8 [facility] Comment on above: Performed By: #### E RUR #### [facility] [address] [place] [address] Dr. Helio Cee Monocytes/100 WBC (Bld) 7.8 % Normal 1.7-12.0 [facility] Comment on above: Performed By: #### E RUR #### [facility] [address] [place] [address] Dr. Helio Cee NEUT # 7.2 103/ul Critically high 1.4-6.5 [facility] Comment on above: Performed By: #### E RUR #### [facility] [address] [place] [address] Dr. Helio Cee Neutrophils/100 WBC (Bld) 78.4 % Critically high 43.0-75.0 [facility] Comment on above: Performed By: #### E RUR #### [facility] [address] [place] [address] Dr. Helio Cee Platelet mean volume (Bld) [Entitic vol] 10.6 fL Normal 9.5-13.5 [facility] Comment on above: Performed By: #### E RUR #### [facility] [address] [place] [address] Dr. Helio Cee PLT 278 103/ul Normal 150-450 [facility] Comment on above: Performed By: #### E RUR #### [facility] [address] [place] [address] Dr. Helio Cee RBC 4.03 106/ul Critically low 4.20-5.40 [facility] Comment on above: Performed By: #### E RUR #### [facility] [address] [place] [address] Dr. Helio Cee WBC 9.1 103/ul Normal 4.0-11.0 [facility] Comment on above: Performed By: #### E RUR #### [facility] [address] [address] [address] Helio Cee CTA CHEST WO W [...] Jay BARAHONA Date: 2021-11-22 16:47 Normal [facility] CULTURE BLOODon 11-22-2021 Microscopic examination of blood, culture Culture Observations: NO GROWTH AT 5 DAYS. Normal [facility] Comment on above: Performed By: #### B [id number] ####[facility] [id number] [address]Dr. Helio Cee Microscopic examination of blood, culture Culture Observations: NO GROWTH AT 5 DAYS. Normal [facility] Comment on above: Performed By: #### B [id number] #### [facility] [address] [address] [address] Helio Cee Covid-19 PCR (CVDTB)on 11-11 SARS-CoV-2 (COVID-19) RNA KIMMY+probe Ql (Unsp spec) Not detected Normal NOT DETECTED [facility] Comment on above: [...] for this test is supported by the [place] of [employer] and Human Service's declaration that [...] used). Performed By: #### C [id number] #### [facility] [address] [address] [address] Helio Cee LACTATE/LACTIC ACIDon 2021 Lactate [Moles/Vol] mmol/L Critically low 0.4-1.9 [facility] Comment on above: Performed By: #### L ACT ####[facility] [address] [address]Dr. Helio Cee PROF 14(COMP METB)on 022 Albumin [Mass/Vol] 3.1 g/dL Critically low 3.4-5.0 [facility] Comment on above: Performed By: #### V [id number] #### [facility] [address] [place] [address] Dr. Helio Cee Albumin/Globulin [Mass ratio] 0.8 {ratio} Normal [facility] Comment on above: Performed By: #### V [id number] #### [facility] [address] [place] [address] Dr. Helio Cee ALP [Catalytic activity/Vol] 92 U/L Normal 46-116 [facility] Comment on above: Performed By: #### V [id number] #### [facility] [address] [place] [address] Dr. Helio Cee ALT [Catalytic activity/Vol] 23 U/L Normal 14-59 [facility] Comment on above: Performed By: #### V [id number] #### [facility] [address] [place] [address] Dr. Helio Cee Anion gap [Moles/Vol] 12.8 mmol/L Normal [facility] Comment on above: Performed By: #### V [id number] #### [facility] [address] [place] [address] Dr. Helio Cee AST [Catalytic activity/Vol] 16 U/L Normal 15-37 [facility] Comment on above: Performed By: #### V [id number] #### [facility] [address] [place] [address] Dr. Helio Cee Bilirubin [Mass/Vol] 0.6 mg/dL Normal 0.2-1.0 [facility] Comment on above: Performed By: #### V [id number] #### [facility] [address] [place] [address] Dr. Helio Cee Calcium [Mass/Vol] 9.5 mg/dL Normal 8.5-10.1 [facility] Comment on above: Performed By: #### V [id number] #### [facility] [address] [place] [address] Dr. Helio Cee Chloride [Moles/Vol] 106 mmol/L Normal 98-107 [facility] Comment on above: Performed By: #### V [id number] #### [facility] [address] [address] [address] Helio Cee CO2 [Moles/Vol] 25.1 mmol/L Normal 21.0-32.0 [facility] Comment on above: Performed By: #### V [id number] #### [facility] [address] [address] [address] Helio Cee Creatinine [Mass/Vol] 1.06 mg/dL Critically high 0.55-1.02 [facility] Comment on above: Performed By: #### V [id number] #### [facility] [address] [place] [address] Dr. Helio Cee EGFR-AF [place] >60 Normal >=60 [facility] Comment on above: Performed By: #### V [id number] #### [facility] [address] [address] [address] Helio Cee EGFR-NON AF [place] 51 mL/min/1.73m2 Critically low >=60 [facility] Comment on above: Performed By: #### V [id number] #### [facility] [address] [place] [address] Dr. Helio Cee Globulin (S) [Mass/Vol] 4.1 g/dL Normal T [facility] Comment on above: Performed By: #### V [id number] #### [facility] [address] [address] [address] Helio Cee Glucose [Mass/Vol] 99 mg/dL Normal 74-106 [facility] Comment on above: Performed By: #### V [id number] #### [facility] [address] [address] [address] Helio Cee Potassium [Moles/Vol] 3.9 mmol/L Normal 3.5-5.1 [facility] Comment on above: Performed By: #### V [id number] #### [facility] [address] [place] [address] Dr. Helio Cee Protein [Mass/Vol] 7.2 g/dL Normal 6.4-8.2 [facility] Comment on above: Performed By: #### V [id number] #### [facility] [address] [address] [address] Helio Cee Sodium [Moles/Vol] 140 mmol/L Normal 136-145 [facility] Comment on above: Performed By: #### V [id number] #### [facility] [address] [address] [address] Helio Cee Urea nitrogen [Mass/Vol] 15.0 mg/dL Normal 7.0-18.0 [facility] Comment on above: Performed By: #### V [id number] #### [facility] [address] [address] [address] Helio Cee Urea nitrogen/Creatinine [Mass ratio] 14.2 mg/mg Normal [facility] Comment on above: Performed By: #### V [id number] #### [facility] [address] [address] [address] Helio Cee TROPONIN, HIGH SENSITIVITYon 11-22-2021 HSTROP 11.6 pg/mL Normal 4.0-51.3 [facility] Comment on above: Result Comment: CUT- OFF POINTS HAVE BEEN ESTABLISHED BASED ON THE FOURTH UNIVERSAL DEFINITIONS OF MYOCARDIAL INFARCTION. THE UPPER REFERENCE LIMIT (URL) OF TROPONIN, DEFINED THE 99TH PERCENTILE OF cTnI DISTRIBUTION IN A REFERENCE POPULATION, HAS BEEN CONFIRMED THE DECISION THRESHOLD FOR WI DIAGNOSIS. Performed By: #### V [id number] #### [facility] [address] [place] [address] Dr. Helio Cee XR CHEST 2 Von [...] by: ISAC CONNOR Date: 2021-11-22 14:20 Normal [facility] BNPon 11-21-2021 Natriuretic peptide B (Bld) [Mass/Vol] 953.0 pg/mL Critically high <=900.0 [facility] Comment on above: Performed By: #### E RUR #### [facility] [address] [place] [address] Dr. Helio Cee CBC AUTO DIFFon 11-21-2021 BASO # 0.0 103/ul Normal 0.0-0.1 [facility] Comment on above: Performed By: #### E RUR #### [facility] [address] [place] [address] Dr. Helio Cee Basophils/100 WBC (Bld) 0.4 % Normal 0.2-2.0 [facility] Comment on above: Performed By: #### E RUR #### [facility] [address] [place] [address] Dr. Helio Cee EO # 0.1 103/ul Normal 0.0-0.7 [facility] Comment on above: Performed By: #### E RUR #### [facility] [address] [place] [address] Dr. Helio Cee Eosinophils/100 WBC (Bld) 1.1 % Normal 0.9-7.0 [facility] Comment on above: Performed By: #### E RUR #### [facility] [address] [place] [address] Dr. Helio Cee Erythrocyte distribution width (RBC) [Ratio] 14.6 % Normal 11.0-15.0 [facility] Comment on above: Performed By: #### E RUR #### [facility] [address] [place] [address] Dr. Helio Cee Hematocrit (Bld) [Volume fraction] 35.2 % Critically low 36.0-48.0 [facility] Comment on above: Performed By: #### E RUR #### [facility] [address] [place] [address] Dr. Helio Cee Hemoglobin (Bld) [Mass/Vol] 10.9 g/dL Critically low 12.0-16.0 [facility] Comment on above: Performed By: #### E RUR #### [facility] [address] [address] [address] Helio Cee IG # 0.07 10e3/ul Critically high 0.00-0.[address] [facility] Comment on above: Performed By: #### E RUR #### [facility] [address] [place] [address] Dr. Helio Cee IG % 0.7 % Critically high 0.0-0.5 [facility] Comment on above: Performed By: #### E RUR #### [facility] [address] [place] [address] Dr. Helio Cee LYMPH # 1.4 103/ul Normal 1.2-3.8 [facility] Comment on above: Performed By: #### E RUR #### [facility] [address] [place] [address] Dr. Helio Cee Lymphocytes/100 WBC (Bld) 13.3 % Critically low 20.5-60.0 [facility] Comment on above: Performed By: #### E RUR #### [facility] [address] [place] [address] Dr. Helio Cee MANUAL DIFF REQ NO Normal [facility] Comment on above: Performed By: #### E RUR #### [facility] [address] [place] [address] Dr. Helio Cee MCH (RBC) [Entitic mass] 29.5 pg Normal 26.7-34.0 [facility] Comment on above: Performed By: #### E RUR #### [facility] [address] [place] [address] Dr. Helio Cee MCHC (RBC) [Mass/Vol] 31.0 g/dL Normal 29.9-35.2 [facility] Comment on above: Performed By: #### E RUR #### [facility] [address] [place] [address] Dr. Helio Cee MCV (RBC) [Entitic vol] 95.4 fL Normal 81.0-99.0 [facility] Comment on above: Performed By: #### E RUR #### [facility] [address] [place] [address] Dr. Helio Cee MONO # 0.8 103/ul Normal 0.3-0.8 [facility] Comment on above: Performed By: #### E RUR #### [facility] [address] [place] [address] Dr. Helio Cee Monocytes/100 WBC (Bld) 7.3 % Normal 1.7-12.0 [facility] Comment on above: Performed By: #### E RUR #### [facility] [address] [place] [address] Dr. Helio Cee NEUT # 7.9 103/ul Critically high 1.4-6.5 [facility] Comment on above: Performed By: #### E RUR #### [facility] [address] [place] [address] Dr. Helio Cee Neutrophils/100 WBC (Bld) 77.2 % Critically high 43.0-75.0 [facility] Comment on above: Performed By: #### E RUR #### [facility] [address] [place] [address] Dr. Helio Cee Platelet mean volume (Bld) [Entitic vol] 11.1 fL Normal 9.5-13.5 [facility] Comment on above: Performed By: #### E RUR #### [facility] [address] [place] [address] Dr. Helio Cee PLT 245 103/ul Normal 150-450 [facility] Comment on above: Performed By: #### E RUR #### [facility] [address] [place], [place] [id number] Dr. Helio Cee RBC 3.69 106/ul Critically low 4.20-5.40 [facility] Comment on above: Performed By: #### E RUR #### [facility] [address] [place] [address] Dr. Helio Cee WBC 10.2 103/ul Normal 4.0-11.0 [facility] Comment on above: Performed By: #### E RUR #### [facility] [address] [address] [address] Helio Cee PROF 14(COMP METB)on 022 Albumin [Mass/Vol] 2.6 g/dL Critically low 3.4-5.0 [facility] Comment on above: Performed By: #### V [id number] #### [facility] [address] [address] [address] Helio Cee Albumin/Globulin [Mass ratio] 0.7 {ratio} Normal [facility] Comment on above: Performed By: #### V [id number] #### [facility] [address] [address] [address] Helio Cee ALP [Catalytic activity/Vol] 75 U/L Normal 46-116 [facility] Comment on above: Performed By: #### V [id number] #### [facility] [address] [place] [address] Dr. Helio Cee ALT [Catalytic activity/Vol] 19 U/L Normal 14-59 [facility] Comment on above: Performed By: #### V [id number] #### [facility] [address] [address] [address] Helio Cee Anion gap [Moles/Vol] 11.7 mmol/L Normal [facility] Comment on above: Performed By: #### V [id number] #### [facility] [address] [address] [address] Helio Cee AST [Catalytic activity/Vol] 8 U/L Critically low 15-37 [facility] Comment on above: Performed By: #### V [id number] #### [facility] [address] [address] [address] Helio Cee Bilirubin [Mass/Vol] 0.3 mg/dL Normal 0.2-1.0 [facility] Comment on above: Performed By: #### V [id number] #### [facility] [address] [place] [address] Dr. Helio Cee Calcium [Mass/Vol] 9.0 mg/dL Normal 8.5-10.1 [facility] Comment on above: Performed By: #### V [id number] #### [facility] [address] [address] [address] Helio Cee Chloride [Moles/Vol] 107 mmol/L Normal 98-107 [facility] Comment on above: Performed By: #### V [id number] #### [facility] [address] [address] [address] Helio Cee CO2 [Moles/Vol] 24.7 mmol/L Normal 21.0-32.0 [facility] Comment on above: Performed By: #### V [id number] #### [facility] [address] [address] [address] Helio Cee Creatinine [Mass/Vol] 0.91 mg/dL Normal 0.55-1.02 [facility] Comment on above: Performed By: #### V [id number] #### [facility] [address] [address] [address] Helio Cee EGFR-AF [place] >60 Normal >=60 [facility] Comment on above: Performed By: #### V [id number] #### [facility] [address] [address] [address] Helio Cee EGFR-NON AF [place] 60 mL/min/1.73m2 Normal >=60 [facility] Comment on above: Performed By: #### V [id number] #### [facility] [address] [address] [address] Helio Cee Globulin (S) [Mass/Vol] 3.9 g/dL Normal [facility] Comment on above: Performed By: #### V [id number] #### [facility] [address] [address] [address] Helio Cee Glucose [Mass/Vol] 131 mg/dL Critically high 74-106 [facility] Comment on above: Performed By: #### V [id number] #### [facility] [address] [address] [address] Helio Cee Potassium [Moles/Vol] 3.4 mmol/L Critically low 3.5-5.1 [facility] Comment on above: Performed By: #### V [id number] #### [facility] [address] [place] [address] Dr. Helio Cee Protein [Mass/Vol] 6.5 g/dL Normal 6.4-8.2 [facility] Comment on above: Performed By: #### V [id number] #### [facility] [address] [place] [address] Dr. Helio Cee Sodium [Moles/Vol] 140 mmol/L Normal 136-145 [facility] Comment on above: Performed By: #### V [id number] #### [facility] [address] [place] [address] Dr. Helio Cee Urea nitrogen [Mass/Vol] 14.0 mg/dL Normal 7.0-18.0 [facility] Comment on above: Performed By: #### V [id number] #### [facility] [address] [place] [address] Dr. Helio Cee Urea nitrogen/Creatinine [Mass ratio] 15.4 mg/mg Normal [facility] Comment on above: Performed By: #### V [id number] #### [facility] [address] [place] [address] Dr. Helio Cee BNPon 11-20-2021 Natriuretic peptide B (Bld) [Mass/Vol] 781.0 pg/mL Normal <=900.0 [facility] Comment on above: Performed By: #### E RUR #### [facility] [address] [place] [address] Dr. Helio Cee CBC AUTO DIFFon 11-20-2021 BASO # 0.0 103/ul Normal 0.0-0.1 [facility] Comment on above: Performed By: #### V [id number] #### [facility] [address] [place] [address] Dr. Helio Cee Basophils/100 WBC (Bld) 0.3 % Normal 0.2-2.0 [facility] Comment on above: Performed By: #### V [id number] #### [facility] [address] [place] [address] Dr. Helio Cee EO # 0.1 103/ul Normal 0.0-0.7 [facility] Comment on above: Performed By: #### V [id number] #### [facility] [address] [place] [address] Dr. Helio Cee Eosinophils/100 WBC (Bld) 0.5 % Critically low 0.9-7.0 [facility] Comment on above: Performed By: #### V [id number] #### [facility] [address] [place] [address] Dr. Helio Cee Erythrocyte distribution width (RBC) [Ratio] 14.5 % Normal 11.0-15.0 [facility] Comment on above: Performed By: #### V [id number] #### [facility] [address] [place] [address] Dr. Helio Cee Hematocrit (Bld) [Volume fraction] 36.6 % Normal 36.0-48.0 [facility] Comment on above: Performed By: #### V [id number] #### [facility] [address] [place] [address] Dr. Helio Cee Hemoglobin (Bld) [Mass/Vol] 11.5 g/dL Critically low 12.0-16.0 [facility] Comment on above: Performed By: #### V [id number] #### [facility] [address] [place] [address] Dr. Helio Cee IG # 0.07 10e3/ul Critically high 0.00-0.[address] [facility] Comment on above: Performed By: #### V [id number] #### [facility] [address] [place] [address] Dr. Helio Cee IG % 0.5 % Normal 0.0-0.5 [facility] Comment on above: Performed By: #### V [id number] #### [facility] [address] [place] [address] Dr. Helio Cee LYMPH # 1.2 103/ul Normal 1.2-3.8 [facility] Comment on above: Performed By: #### V [id number] #### [facility] [address] [place] [address] Dr. Helio Cee Lymphocytes/100 WBC (Bld) 9.5 % Critically low 20.5-60.0 [facility] Comment on above: Performed By: #### V [id number] #### [facility] [address] [place] [address] Dr. Helio Cee MANUAL DIFF REQ NO Normal [facility] Comment on above: Performed By: #### V [id number] #### [facility] [address] [place] [address] Dr. Helio Cee MCH (RBC) [Entitic mass] 30.2 pg Normal 26.7-34.0 [facility] Comment on above: Performed By: #### V [id number] #### [facility] [address] [place] [address] Dr. Helio Cee MCHC (RBC) [Mass/Vol] 31.4 g/dL Normal 29.9-35.2 [facility] Comment on above: Performed By: #### V [id number] #### [facility] [address] [place] [address] Dr. Helio Cee MCV (RBC) [Entitic vol] 96.1 fL Normal 81.0-99.0 [facility] Comment on above: Performed By: #### V [id number] #### [facility] [address] [place] [address] Dr. Helio Cee MONO # 0.7 103/ul Normal 0.3-0.8 [facility] Comment on above: Performed By: #### V [id number] #### [facility] [address] [place] [address] Dr. Helio Cee Monocytes/100 WBC (Bld) 5.7 % Normal 1.7-12.0 [facility] Comment on above: Performed By: #### V [id number] #### [facility] [address] [place] [address] Dr. Helio Cee NEUT # 10.8 103/ul Critically high 1.4-6.5 [facility] Comment on above: Performed By: #### V [id number] #### [facility] [address] [place] [address] Dr. Helio Cee Neutrophils/100 WBC (Bld) 83.5 % Critically high 43.0-75.0 [facility] Comment on above: Performed By: #### V [id number] #### [facility] [address] [place] [address] Dr. Helio Cee Platelet mean volume (Bld) [Entitic vol] 11.1 fL Normal 9.5-13.5 [facility] Comment on above: Performed By: #### V [id number] #### [facility] [address] [place] [address] Dr. Helio Cee PLT 231 103/ul Normal 150-450 [facility] Comment on above: Performed By: #### V [id number] #### [facility] [address] [place] [address] Dr. Helio Cee RBC 3.81 106/ul Critically low 4.20-5.40 [facility] Comment on above: Performed By: #### V [id number] #### [facility] [address] [place] [address] Dr. Helio Cee WBC 13.0 103/ul Critically high 4.0-11.0 [facility] Comment on above: Performed By: #### V [id number] #### [facility] [address] [place] [address] Dr. Helio Cee PROF 14(COMP METB)on 022 Albumin [Mass/Vol] 2.9 g/dL Critically low 3.4-5.0 [facility] Comment on above: Performed By: #### E RUR #### [facility] [address] [place] [address] Dr. Helio Cee Albumin/Globulin [Mass ratio] 0.8 {ratio} Normal [facility] Comment on above: Performed By: #### E RUR #### [facility] [address] [place] [address] Dr. Helio Cee ALP [Catalytic activity/Vol] 81 U/L Normal 46-116 [facility] Comment on above: Performed By: #### E RUR #### [facility] [address] [place] [address] Dr. Helio Cee ALT [Catalytic activity/Vol] 21 U/L Normal 14-59 [facility] Comment on above: Performed By: #### E RUR #### [facility] [address] [place] [address] Dr. Helio Cee Anion gap [Moles/Vol] 12.4 mmol/L Normal [facility] Comment on above: Performed By: #### E RUR #### [facility] [address] [place] [address] Dr. Helio Cee AST [Catalytic activity/Vol] 11 U/L Critically low 15-37 [facility] Comment on above: Performed By: #### E RUR #### [facility] [address] [place] [address] Dr. Helio Cee Bilirubin [Mass/Vol] 0.4 mg/dL Normal 0.2-1.0 [facility] Comment on above: Performed By: #### E RUR #### [facility] [address] [place] [address] Dr. Helio Cee Calcium [Mass/Vol] 8.7 mg/dL Normal 8.5-10.1 [facility] Comment on above: Performed By: #### E RUR #### [facility] [address] [place] [address] Dr. Helio Cee Chloride [Moles/Vol] 108 mmol/L Critically high 98-107 [facility] Comment on above: Performed By: #### E RUR #### [facility] [address] [place] [address] Dr. Helio Cee CO2 [Moles/Vol] 24.2 mmol/L Normal 21.0-32.0 [facility] Comment on above: Performed By: #### E RUR #### [facility] [address] [place] [address] Dr. Helio Cee Creatinine [Mass/Vol] 1.03 mg/dL Critically high 0.55-1.02 [facility] Comment on above: Performed By: #### E RUR #### [facility] [address] [place] [address] Dr. Helio Cee EGFR-AF [place] >60 Normal >=60 [facility] Comment on above: Performed By: #### E RUR #### [facility] [address] [address] [address] Helio Cee EGFR-NON AF [place] 52 mL/min/1.73m2 Critically low >=60 [facility] Comment on above: Performed By: #### E RUR #### [facility] [address] [address] [address] Helio Cee Globulin (S) [Mass/Vol] 3.5 g/dL Normal [facility] Comment on above: Performed By: #### E RUR #### [facility] [address] [place] [address] Dr. Helio Cee Glucose [Mass/Vol] 142 mg/dL Critically high 74-106 [facility] Comment on above: Performed By: #### E RUR #### [facility] [address] [place] [address] Dr. Helio Cee Potassium [Moles/Vol] 3.6 mmol/L Normal 3.5-5.1 [facility] Comment on above: Performed By: #### E RUR #### [facility] [address] [place] [address] Dr. Helio Cee Protein [Mass/Vol] 6.4 g/dL Normal 6.4-8.2 [facility] Comment on above: Performed By: #### E RUR #### [facility] [address] [place] [address] Dr. Helio Cee Sodium [Moles/Vol] 141 mmol/L Normal 136-145 [facility] Comment on above: Performed By: #### E RUR #### [facility] [address] [place] [address] Dr. Helio Cee Urea nitrogen [Mass/Vol] 19.0 mg/dL Critically high 7.0-18.0 [facility] Comment on above: Performed By: #### E RUR #### [facility] [address] [place] [address] Dr. Helio Cee Urea nitrogen/Creatinine [Mass ratio] 18.4 mg/mg Normal [facility] Comment on above: Performed By: #### E RUR #### [facility] [address] [place] [address] Dr. Helio Cee XR CHEST 2 Von [...] by: EUN BARRY Date: 2021-11-20 07:56 Normal [facility] BNPon 11-19-2021 Natriuretic peptide B (Bld) [Mass/Vol] 777.0 pg/mL Normal <=900.0 [facility] Comment on above: Performed By: #### E RUR #### [facility] [address] [place] [address] Dr. Helio Cee CBC AUTO DIFFon 11-19-2021 BASO # 0.0 103/ul Normal 0.0-0.1 [facility] Comment on above: Performed By: #### V [id number] #### [facility] [address] [place] [address] Dr. Helio Cee Basophils/100 WBC (Bld) 0.2 % Normal 0.2-2.0 [facility] Comment on above: Performed By: #### V [id number] #### [facility] [address] [place] [address] Dr. Helio Cee EO # 0.1 103/ul Normal 0.0-0.7 [facility] Comment on above: Performed By: #### V [id number] #### [facility] [address] [place] [address] Dr. Helio Cee Eosinophils/100 WBC (Bld) 0.5 % Critically low 0.9-7.0 [facility] Comment on above: Performed By: #### V [id number] #### [facility] [address] [address] [address] Helio Cee Erythrocyte distribution width (RBC) [Ratio] 14.6 % Normal 11.0-15.0 [facility] Comment on above: Performed By: #### V [id number] #### [facility] [address] [place] [address] Dr. Helio Cee Hematocrit (Bld) [Volume fraction] 37.4 % Normal 36.0-48.0 [facility] Comment on above: Performed By: #### V [id number] #### [facility] [address] [place] [address] Dr. Helio Cee Hemoglobin (Bld) [Mass/Vol] 11.5 g/dL Critically low 12.0-16.0 [facility] Comment on above: Performed By: #### V [id number] #### [facility] [address] [place] [address] Dr. Helio Cee IG # 0.07 10e3/ul Critically high 0.00-0.[address] [facility] Comment on above: Performed By: #### V [id number] #### [facility] [address] [place] [address] Dr. Helio Cee IG % 0.5 % Normal 0.0-0.5 [facility] Comment on above: Performed By: #### V [id number] #### [facility] [address] [place] [address] Dr. Helio Cee LYMPH # 1.1 103/ul Critically low 1.2-3.8 [facility] Comment on above: Performed By: #### V [id number] #### [facility] [address] [place] [address] Dr. Helio Cee Lymphocytes/100 WBC (Bld) 6.8 % Critically low 20.5-60.0 [facility] Comment on above: Performed By: #### V [id number] #### [facility] [address] [place] [address] Dr. Helio Cee MANUAL DIFF REQ NO Normal [facility] Comment on above: Performed By: #### V [id number] #### [facility] [address] [place] [address] Dr. Helio Cee MCH (RBC) [Entitic mass] 30.1 pg Normal 26.7-34.0 [facility] Comment on above: Performed By: #### V [id number] #### [facility] [address] [place] [address] Dr. Helio Cee MCHC (RBC) [Mass/Vol] 30.7 g/dL Normal 29.9-35.2 [facility] Comment on above: Performed By: #### V [id number] #### [facility] [address] [place] [address] Dr. Helio Cee MCV (RBC) [Entitic vol] 97.9 fL Normal 81.0-99.0 [facility] Comment on above: Performed By: #### V [id number] #### [facility] [address] [place] [address] Dr. Helio Cee MONO # 0.8 103/ul Normal 0.3-0.8 [facility] Comment on above: Performed By: #### V [id number] #### [facility] [address] [place] [address] Dr. Helio Cee Monocytes/100 WBC (Bld) 5.3 % Normal 1.7-12.0 [facility] Comment on above: Performed By: #### V [id number] #### [facility] [address] [place] [address] Dr. Helio Cee NEUT # 13.3 103/ul Critically high 1.4-6.5 [facility] Comment on above: Performed By: #### V [id number] #### [facility] [address] [place] [address] Dr. Helio Cee Neutrophils/100 WBC (Bld) 86.7 % Critically high 43.0-75.0 [facility] Comment on above: Performed By: #### V [id number] #### [facility] [address] [place] [address] Dr. Helio Cee Platelet mean volume (Bld) [Entitic vol] 11.4 fL Normal 9.5-13.5 [facility] Comment on above: Performed By: #### V [id number] #### [facility] [address] [place] [address] Dr. Helio Cee PLT 215 103/ul Normal 150-450 [facility] Comment on above: Performed By: #### V [id number] #### [facility] [address] [place] [address] Dr. Helio Cee RBC 3.82 106/ul Critically low 4.20-5.40 [facility] Comment on above: Performed By: #### V [id number] #### [facility] [address] [place] [address] Dr. Helio Cee WBC 15.3 103/ul Critically high 4.0-11.0 [facility] Comment on above: Performed By: #### V [id number] #### [facility] [address] [place] [address] Dr. Helio Cee PROF 14(COMP METB)on 022 Albumin [Mass/Vol] 2.8 g/dL Critically low 3.4-5.0 [facility] Comment on above: Performed By: #### E RUR #### [facility] [address] [place] [address] Dr. Helio Cee Albumin/Globulin [Mass ratio] 0.8 {ratio} Normal [facility] Comment on above: Performed By: #### E RUR #### [facility] [address] [place] [address] Dr. Helio Cee ALP [Catalytic activity/Vol] 74 U/L Normal 46-116 [facility] Comment on above: Performed By: #### E RUR #### [facility] [address] [place] [address] Dr. Helio Cee ALT [Catalytic activity/Vol] 21 U/L Normal 14-59 [facility] Comment on above: Performed By: #### E RUR #### [facility] [address] [place] [address] Dr. Helio Cee Anion gap [Moles/Vol] 13.5 mmol/L Normal [facility] Comment on above: Performed By: #### E RUR #### [facility] [address] [address] [address] Helio Cee AST [Catalytic activity/Vol] 11 U/L Critically low 15-37 [facility] Comment on above: Performed By: #### E RUR #### [facility] [address] [address] [address] Helio Cee Bilirubin [Mass/Vol] 0.5 mg/dL Normal 0.2-1.0 [facility] Comment on above: Performed By: #### E RUR #### [facility] [address] [address] [address] Helio Cee Calcium [Mass/Vol] 8.4 mg/dL Critically low 8.5-10.1 [facility] Comment on above: Performed By: #### E RUR #### [facility] [address] [address] [address] Helio Cee Chloride [Moles/Vol] 107 mmol/L Normal 98-107 [facility] Comment on above: Performed By: #### E RUR #### [facility] [address] [address] [address] Helio Cee CO2 [Moles/Vol] 21.0 mmol/L Normal 21.0-32.0 [facility] Comment on above: Performed By: #### E RUR #### [facility] [address] [address] [address] Helio Cee Creatinine [Mass/Vol] 1.07 mg/dL Critically high 0.55-1.02 [facility] Comment on above: Performed By: #### E RUR #### [facility] [address] [address] [address] Helio Cee EGFR-AF [place] >60 Normal >=60 [facility] Comment on above: Performed By: #### E RUR #### [facility] [address] [address] [address] Helio Cee EGFR-NON AF [place] 50 mL/min/1.73m2 Critically low >=60 [facility] Comment on above: Performed By: #### E RUR #### [facility] [address] [address] [address] Helio Cee Globulin (S) [Mass/Vol] 3.4 g/dL Normal [facility] Comment on above: Performed By: #### E RUR #### [facility] [address] [address] [address] Helio Cee Glucose [Mass/Vol] 109 mg/dL Critically high 74-106 [facility] Comment on above: Performed By: #### E RUR #### [facility] [address] [address] [address] Helio Cee Potassium [Moles/Vol] 3.5 mmol/L Normal 3.5-5.1 [facility] Comment on above: Performed By: #### E RUR #### [facility] [address] [address] [address] Helio Cee Protein [Mass/Vol] 6.2 g/dL Critically low 6.4-8.2 [facility] Comment on above: Performed By: #### E RUR #### [facility] [address] [address] [address] Helio Cee Sodium [Moles/Vol] 138 mmol/L Normal 136-145 [facility] Comment on above: Performed By: #### E RUR #### [facility] [address] [address] [address] Helio Cee Urea nitrogen [Mass/Vol] 25.0 mg/dL Critically high 7.0-18.0 [facility] Comment on above: Performed By: #### E RUR #### [facility] [address] [address] [address] Helio Cee Urea nitrogen/Creatinine [Mass ratio] 23.4 mg/mg Normal [facility] Comment on above: Performed By: #### E RUR #### [facility] [address] [address] [address] Helio Cee BNPon 11-18-2021 Natriuretic peptide B (Bld) [Mass/Vol] 386.0 pg/mL Normal <=900.0 [facility] Comment on above: Performed By: #### B CORRECTIONAL SUPERVISOR LIEUTENANT, HSTROPN, BMP ####[facility] [id number] [address]Dr. Helio Cee CBC AUTO DIFFon 11-18-2021 BASO # 0.0 103/ul Normal 0.0-0.1 [facility] Comment on above: Performed By: #### V [id number] #### [facility] [address] [address] [address] Helio Cee Basophils/100 WBC (Bld) 0.3 % Normal 0.2-2.0 [facility] Comment on above: Performed By: #### V [id number] #### [facility] [address] [place] [address] Dr. Helio Cee EO # 0.0 103/ul Normal 0.0-0.7 [facility] Comment on above: Performed By: #### V [id number] #### [facility] [address] [address] [address] Helio Cee Eosinophils/100 WBC (Bld) 0.1 % Critically low 0.9-7.0 [facility] Comment on above: Performed By: #### V [id number] #### [facility] [address] [place] [address] Dr. Helio Cee Erythrocyte distribution width (RBC) [Ratio] 14.4 % Normal 11.0-15.0 [facility] Comment on above: Performed By: #### V [id number] #### [facility] [address] [place] [address] Dr. Helio Cee Hematocrit (Bld) [Volume fraction] 43.6 % Normal 36.0-48.0 [facility] Comment on above: Performed By: #### V [id number] #### [facility] [address] [place] [address] Dr. Helio Cee Hemoglobin (Bld) [Mass/Vol] 13.4 g/dL Normal 12.0-16.0 [facility] Comment on above: Performed By: #### V [id number] #### [facility] [address] [place] [address] Dr. Helio Cee IG # 0.03 10e3/ul Normal 0.00-0.03 [facility] Comment on above: Performed By: #### V [id number] #### [facility] [address] [place] [address] Dr. Helio Cee IG % 0.3 % Normal 0.0-0.5 [facility] Comment on above: Performed By: #### V [id number] #### [facility] [address] [place] [address] Dr. Helio Cee LYMPH # 0.4 103/ul Critically low 1.2-3.8 [facility] Comment on above: Performed By: #### V [id number] #### [facility] [address] [place] [address] Dr. Helio Cee Lymphocytes/100 WBC (Bld) 4.0 % Critically low 20.5-60.0 [facility] Comment on above: Performed By: #### V [id number] #### [facility] [address] [place] [address] Dr. Helio Cee MANUAL DIFF REQ NO Normal [facility] Comment on above: Performed By: #### V [id number] #### [facility] [address] [place] [address] Dr. Helio Cee MCH (RBC) [Entitic mass] 29.6 pg Normal 26.7-34.0 [facility] Comment on above: Performed By: #### V [id number] #### [facility] [address] [place] [address] Dr. Helio Cee MCHC (RBC) [Mass/Vol] 30.7 g/dL Normal 29.9-35.2 [facility] Comment on above: Performed By: #### V [id number] #### [facility] [address] [place] [address] Dr. Helio Cee MCV (RBC) [Entitic vol] 96.5 fL Normal 81.0-99.0 [facility] Comment on above: Performed By: #### V [id number] #### [facility] [address] [place], [place] [address] Dr. Helio Cee MONO # 0.6 103/ul Normal 0.3-0.8 [facility] Comment on above: Performed By: #### V [id number] #### [facility] [address] [place] [address] Dr. Helio Cee Monocytes/100 WBC (Bld) 5.4 % Normal 1.7-12.0 [facility] Comment on above: Performed By: #### V [id number] #### [facility] [address] [place] [address] Dr. Helio Cee NEUT # 9.7 103/ul Critically high 1.4-6.5 [facility] Comment on above: Performed By: #### V [id number] #### [facility] [address] [place] [address] Dr. Helio Cee Neutrophils/100 WBC (Bld) 89.9 % Critically high 43.0-75.0 [facility] Comment on above: Performed By: #### V [id number] #### [facility] [address] [place] [address] Dr. Helio Cee Platelet mean volume (Bld) [Entitic vol] 10.9 fL Normal 9.5-13.5 [facility] Comment on above: Performed By: #### V [id number] #### [facility] [address] [place] [address] Dr. Helio Cee PLT 265 103/ul Normal 150-450 [facility] Comment on above: Performed By: #### V [id number] #### [facility] [address] [place] [address] Dr. Helio Cee RBC 4.52 106/ul Normal 4.20-5.40 [facility] Comment on above: Performed By: #### V [id number] #### [facility] [address] [place] [address] Dr. Helio Cee WBC 10.7 103/ul Normal 4.0-11.0 [facility] Comment on above: Performed By: #### V [id number] #### [facility] [address] [place] [address] Dr. Helio Cee CULTURE BLOODon 11-18-2021 Microscopic examination of blood, culture Culture Observations: NO GROWTH AT 5 DAYS. Normal [facility] Comment on above: Performed By: #### B [id number] #### [facility] [address] [place] [address] Dr. Helio Cee Microscopic examination of blood, culture Culture Observations: NO GROWTH AT 5 DAYS. Normal [facility] Comment on above: Performed By: #### B [id number] #### [facility] [address] [place] [address] Dr. Helio Cee [facility] SARS-CoV-2 (COVID-19) RNA KIMMY+probe Ql (Unsp spec) Not detected Normal NOT DETECTED [facility] Comment on above: [...] for this test is supported by the [place] of [employer] and Human Service's declaration that [...] used). Performed By: #### E RUR #### [facility] [address] [place] [address] Dr. Helio Cee ER URINE PROFILEon 2 Bilirubin Ql (U) Negative Normal NEGATIVE [facility] Comment on above: Performed By: #### E RUR #### [facility] [address] [place] [address] Dr. Helio Cee Clarity (U) CLEAR Normal CLEAR [facility] Comment on above: Performed By: #### E RUR #### [facility] [address] [address] [address] Helio Cee Color (U) LT. YELLOW Normal YELLOW [facility] Comment on above: Performed By: #### E RUR #### [facility] [address] [place] [address] Dr. Helio Cee ERUAHAg A micrscopic examina tion will be performed if indicated. Normal [facility] Comment on above: Performed By: #### E RUR #### [facility] [address] [place] [address] Dr. Helio Cee Glucose Ql (U) Negative Normal NEGATIVE [facility] Comment on above: Performed By: #### E RUR #### [facility] [address] [place] [address] Dr. Helio Cee Hemoglobin Ql (U) Negative Normal NEGATIVE [facility] Comment on above: Performed By: #### E RUR #### [facility] [address] [place] [address] Dr. Helio Cee Ketones Ql (U) Negative Normal NEGATIVE [facility] Comment on above: Performed By: #### E RUR #### [facility] [address] [place] [address] Dr. Helio Cee LEUKOCYTES Negative Normal NEGATIVE [facility] Comment on above: Performed By: #### E RUR #### [facility] [address] [place] [address] Dr. Helio Cee Nitrite Ql (U) Negative Normal NEGATIVE [facility] Comment on above: Performed By: #### E RUR #### [facility] [address] [place] [address] Dr. Helio Cee pH (U) 5.5 [pH] Normal 5-9 [facility] Comment on above: Performed By: #### E RUR #### [facility] [address] [place] [address] Dr. Helio Cee SPEC GRAVITY 1.015 Normal 1.005-<=1. 025 [facility] Comment on above: Performed By: #### E RUR #### [facility] [address] [address] [address] Helio Cee UA PROTEIN Negative Normal NEGATIVE/ TRACE [facility] Comment on above: Performed By: #### E RUR #### [facility] [address] [address] [address] Helio Cee UR MICRO IND NOT INDICATED Normal [facility] Comment on above: Performed By: #### E RUR #### [facility] [address] [address] [address] Helio Cee Urobilinogen Qn (U) 0.2 {Nevaeh'U}/dL Normal 0.2 - 1. 0 [facility] Comment on above: Performed By: #### E RUR #### [facility] [address] [address] [address] Helio Cee PROF CHEM 8 (BAS METB)on Anion gap [Moles/Vol] 13.6 mmol/L Normal [facility] Comment on above: Performed By: #### B CORRECTIONAL SUPERVISOR LIEUTENANT, HSTROPN, BMP ####[facility] [address] [address]Dr. Helio Cee Calcium [Mass/Vol] 9.1 mg/dL Normal 8.5-10.1 [facility] Comment on above: Performed By: #### B CORRECTIONAL SUPERVISOR LIEUTENANT, HSTROPN, BMP ####[facility] [id number] [address]Dr. Helio Cee Chloride [Moles/Vol] 110 mmol/L Critically high 98-107 [facility] Comment on above: Performed By: #### B CORRECTIONAL SUPERVISOR LIEUTENANT, HSTROPN, BMP ####[facility] [id number] [address]Dr. Helio Cee CO2 [Moles/Vol] 22.9 mmol/L Normal 21.0-32.0 [facility] Comment on above: Performed By: #### B CORRECTIONAL SUPERVISOR LIEUTENANT, HSTROPN, BMP ####[facility] [address] [address]Dr. Helio Cee Creatinine [Mass/Vol] 1.47 mg/dL Critically high 0.55-1.02 [facility] Comment on above: Performed By: #### B CORRECTIONAL SUPERVISOR LIEUTENANT, HSTROPN, BMP ####[facility] [id number] [address]Dr. Helio Cee EGFR-AF [place] 42 mL/min/1.73m2 Critically low >=60 [facility] Comment on above: Performed By: #### B CORRECTIONAL SUPERVISOR LIEUTENANT, HSTROPN, BMP ####[facility] [address] [place], [place] [address]Dr. Yilan Cee EGFR-NON AF [place] 35 mL/min/1.73m2 Critically low >=60 [facility] Comment on above: Performed By: #### B CORRECTIONAL SUPERVISOR LIEUTENANT, HSTROPN, BMP ####[facility] [id number] [place], [place] [address]Dr. Helio Cee Glucose [Mass/Vol] 120 mg/dL Critically high 74-106 [facility] Comment on above: Performed By: #### B CORRECTIONAL SUPERVISOR LIEUTENANT, HSTROPN, BMP ####[facility] [id number] [place], [place] [address]Dr. Helio Cee Potassium [Moles/Vol] 3.5 mmol/L Normal 3.5-5.1 [facility] Comment on above: Performed By: #### B CORRECTIONAL SUPERVISOR LIEUTENANT, HSTROPN, BMP ####[facility] [address] [address]Dr. Helio Cee Sodium [Moles/Vol] 143 mmol/L Normal 136-145 [facility] Comment on above: Performed By: #### B CORRECTIONAL SUPERVISOR LIEUTENANT, HSTROPN, BMP ####[facility] [id number] [place], [place] [address]Dr. Helio Cee Urea nitrogen [Mass/Vol] 29.0 mg/dL Critically high 7.0-18.0 [facility] Comment on above: Performed By: #### B CORRECTIONAL SUPERVISOR LIEUTENANT, HSTROPN, BMP ####[facility] [id number] [address]Dr. Helio Cee Urea nitrogen/Creatinine [Mass ratio] 19.7 mg/mg Normal [facility] Comment on above: Performed By: #### B CORRECTIONAL SUPERVISOR LIEUTENANT, HSTROPN, BMP ####[facility] [id number] [place], [place] [address]Hm. Helio Cee TROPONIN, HIGH SENSITIVITYon 11-18-2021 HSTROP 8.2 pg/mL Normal 4.0-51.3 [facility] Comment on above: Result Comment: CUT- OFF POINTS HAVE BEEN ESTABLISHED BASED ON THE FOURTH UNIVERSAL DEFINITIONS OF MYOCARDIAL INFARCTION. THE UPPER REFERENCE LIMIT (URL) OF TROPONIN, DEFINED THE 99TH PERCENTILE OF cTnI DISTRIBUTION IN A REFERENCE POPULATION, HAS BEEN CONFIRMED THE DECISION THRESHOLD FOR WI DIAGNOSIS. Performed By: #### B CORRECTIONAL SUPERVISOR LIEUTENANT, HSTROPN, BMP ####[facility] [id number] [place], [place] [address]Cf. Helio Cee XR CHEST 1 Von 11-18-2021 [...] by: EHSAN MILLER Date: 2021-11-18 10:38 Normal [facility] BNPon 10-25-2021 Natriuretic peptide B (Bld) [Mass/Vol] 396.0 pg/mL Normal <=900.0 [facility] Comment on above: Performed By: #### V [id number] #### [facility] [address] [address] [address] Helio Cee CBC AUTO DIFFon 10-25-2021 BASO # 0.1 103/ul Normal 0.0-0.1 [facility] Comment on above: Performed By: #### E RUR #### [facility] [address] [address] [address] Helio Cee Basophils/100 WBC (Bld) 1.0 % Normal 0.2-2.0 [facility] Comment on above: Performed By: #### E RUR #### [facility] [address] [place] [address] Dr. Helio Cee EO # 0.2 103/ul Normal 0.0-0.7 [facility] Comment on above: Performed By: #### E RUR #### [facility] [address] [place] [address] Dr. Helio Cee Eosinophils/100 WBC (Bld) 2.7 % Normal 0.9-7.0 [facility] Comment on above: Performed By: #### E RUR #### [facility] [address] [place] [address] Dr. Helio Cee Erythrocyte distribution width (RBC) [Ratio] 14.6 % Normal 11.0-15.0 [facility] Comment on above: Performed By: #### E RUR #### [facility] [address] [place] [address] Dr. Helio Cee Hematocrit (Bld) [Volume fraction] 44.8 % Normal 36.0-48.0 [facility] Comment on above: Performed By: #### E RUR #### [facility] [address] [place] [address] Dr. Helio Cee Hemoglobin (Bld) [Mass/Vol] 13.8 g/dL Normal 12.0-16.0 [facility] Comment on above: Performed By: #### E RUR #### [facility] [address] [place] [address] Dr. Helio Cee IG # 0.03 10e3/ul Normal 0.00-0.03 [facility] Comment on above: Performed By: #### E RUR #### [facility] [address] [place] [address] Dr. Helio Cee IG % 0.3 % Normal 0.0-0.5 [facility] Comment on above: Performed By: #### E RUR #### [facility] [address] [place] [address] Dr. Helio Cee LYMPH # 1.6 103/ul Normal 1.2-3.8 [facility] Comment on above: Performed By: #### E RUR #### [facility] [address] [address] [address] Helio Cee Lymphocytes/100 WBC (Bld) 18.5 % Critically low 20.5-60.0 [facility] Comment on above: Performed By: #### E RUR #### [facility] [address] [address] [address] Helio Cee MANUAL DIFF REQ NO Normal [facility] Comment on above: Performed By: #### E RUR #### [facility] [address] [place] [address] Dr. Helio Cee MCH (RBC) [Entitic mass] 29.9 pg Normal 26.7-34.0 [facility] Comment on above: Performed By: #### E RUR #### [facility] [address] [place] [address] Dr. Helio Cee MCHC (RBC) [Mass/Vol] 30.8 g/dL Normal 29.9-35.2 [facility] Comment on above: Performed By: #### E RUR #### [facility] [address] [place] [address] Dr. Helio Cee MCV (RBC) [Entitic vol] 97.2 fL Normal 81.0-99.0 [facility] Comment on above: Performed By: #### E RUR #### [facility] [address] [place] [address] Dr. Helio Cee MONO # 0.6 103/ul Normal 0.3-0.8 [facility] Comment on above: Performed By: #### E RUR #### [facility] [address] [place] [address] Dr. Helio Cee Monocytes/100 WBC (Bld) 7.0 % Normal 1.7-12.0 [facility] Comment on above: Performed By: #### E RUR #### [facility] [address] [place] [address] Dr. Helio Cee NEUT # 6.1 103/ul Normal 1.4-6.5 [facility] Comment on above: Performed By: #### E RUR #### [facility] [address] [address] [address] Helio Cee Neutrophils/100 WBC (Bld) 70.5 % Normal 43.0-75.0 [facility] Comment on above: Performed By: #### E RUR #### [facility] [id number] Helio Cee Platelet mean volume (Bld) [Entitic vol] 11.0 fL Normal 9.5-13.5 [facility] Comment on above: Performed By: #### E RUR #### [facility] [address] [address] [address] Helio Cee PLT 292 103/ul Normal 150-450 [facility] Comment on above: Performed By: #### E RUR #### [facility] [address] [address] [address] Helio Cee RBC 4.61 106/ul Normal 4.20-5.40 [facility] Comment on above: Performed By: #### E RUR #### [facility] [id number] Helio Cee WBC 8.6 103/ul Normal 4.0-11.0 [facility] Comment on above: Performed By: #### E RUR #### [facility] [address] [place] [address] Dr. Helio Cee ECHOCARDIO M/2D COMPLETEon 0 10-25-2021 ECHOCARDIO M/2D COMPLETE Patient: AARON LEWIS Exam Date: 10/25/2021 : 1945 Gender:F Ordering : DR JEREMIAH REED M.D. Admission #: [id number] Family : Order #: [id number] CLICK HERE TO VIEW EXAM ECHOCARDIOGRAM REPORT [...] Area(A4C): 20.40 cm2 Left Atrium Systolic Volume(A2C): 23599 mm3 Left Atrium Systolic Volume(A4C): 70847 mm3 Mitral Valve MV E to A Ratio: 0.80 Deceleration Posey: 4670 mm/s2 Mitral Valve A-Wave Peak Velocity: [...] M.D. on 10/25/2021 at 19:27 Approved by: Jonhson Cheema M.D. on 10/25/2021 at 19:31 Normal [facility] MAMM SCREEN 3D EBONI CADon 10-25-2021 MG MAMM SCREEN 3D EBONI CAD Patient: AARON LEWIS Exam Date: 10/25/2021 : 1945 Gender:F Ordering : DR JEREMIAH REED M.D. Admission #: [id number] Family : Order #: [id number] CLICK HERE TO VIEW EXAM RADIOLOGY REPORT [...] breast cancer at age 72. LOCATION: [facility] BREAST COMPOSITION: Heterogeneously dense,which may [...] M.D. on 10/25/2021 at 15:33 Normal [facility] PROF 14(COMP METB)on 022 Albumin [Mass/Vol] 3.8 g/dL Normal 3.4-5.0 [facility] Comment on above: Performed By: #### V [id number] #### [facility] [address] [address] [address] Helio Cee Albumin/Globulin [Mass ratio] 1.1 {ratio} Normal [facility] Comment on above: Performed By: #### V [id number] #### [facility] [address] [address] [address] Helio Cee ALP [Catalytic activity/Vol] 97 U/L Normal 46-116 [facility] Comment on above: Performed By: #### V [id number] #### [facility] [address] [place] [address] Dr. Helio Cee ALT [Catalytic activity/Vol] 31 U/L Normal 14-59 [facility] Comment on above: Performed By: #### V [id number] #### [facility] [address] [address] [address] eHlio Cee Anion gap [Moles/Vol] 11.0 mmol/L Normal [facility] Comment on above: Performed By: #### V [id number] #### [facility] [address] [place] [address] Dr. Helio Cee AST [Catalytic activity/Vol] 13 U/L Critically low 15-37 [facility] Comment on above: Performed By: #### V [id number] #### [facility] [address] [address] [address] Helio Cee Bilirubin [Mass/Vol] 0.4 mg/dL Normal 0.2-1.0 [facility] Comment on above: Performed By: #### V [id number] #### [facility] [address] [address] [address] Helio Cee Calcium [Mass/Vol] 9.3 mg/dL Normal 8.5-10.1 [facility] Comment on above: Performed By: #### V [id number] #### [facility] [address] [place] [address] Dr. Helio Cee Chloride [Moles/Vol] 108 mmol/L Critically high 98-107 [facility] Comment on above: Performed By: #### V [id number] #### [facility] [address] [address] [address] Helio Cee CO2 [Moles/Vol] 28.4 mmol/L Normal 21.0-32.0 [facility] Comment on above: Performed By: #### V [id number] #### [facility] [address] [address] [address] Helio Cee Creatinine [Mass/Vol] 1.09 mg/dL Critically high 0.55-1.02 [facility] Comment on above: Performed By: #### V [id number] #### [facility] [address] [address] [address] Helio Cee EGFR-AF [place] 59 mL/min/1.73m2 Critically low >=60 [facility] Comment on above: Performed By: #### V [id number] #### [facility] [address] [address] [address] Helio Cee EGFR-NON AF [place] 49 mL/min/1.73m2 Critically low >=60 [facility] Comment on above: Performed By: #### V [id number] #### [facility] [address] [address] [address] Helio Cee Globulin (S) [Mass/Vol] 3.4 g/dL Normal [facility] Comment on above: Performed By: #### V [id number] #### [facility] [address] [address] [address] Helio Cee Glucose [Mass/Vol] 100 mg/dL Normal 74-106 [facility] Comment on above: Performed By: #### V [id number] #### [facility] [address] [address] [address] Helio Cee Potassium [Moles/Vol] 4.4 mmol/L Normal 3.5-5.1 [facility] Comment on above: Performed By: #### V [id number] #### [facility] [address] [address] [address] Helio Cee Protein [Mass/Vol] 7.2 g/dL Normal 6.4-8.2 [facility] Comment on above: Performed By: #### V [id number] #### [facility] [address] [address] [address] Helio Cee Sodium [Moles/Vol] 143 mmol/L Normal 136-145 [facility] Comment on above: Performed By: #### V [id number] #### [facility] [address] [address] [address] Helio Cee Urea nitrogen [Mass/Vol] 24.0 mg/dL Critically high 7.0-18.0 [facility] Comment on above: Performed By: #### V [id number] #### [facility] [address] [place] [address] Dr. Helio Cee Urea nitrogen/Creatinine [Mass ratio] 22.0 mg/mg Normal [facility] Comment on above: Performed By: #### V [id number] #### [facility] [address] [place] [address] Dr. Helio Cee TSHon 10-25-2021 TSH 0.635 uIU/mL Normal 0.358-3.74 0 [facility] Comment on above: Performed By: #### V [id number] #### [facility] [address] [place] [address] Dr. Helio Cee Vital Signs Date Time Vital Sign Value Performing Clinician Facility 05-27-2024 11:09-0500 Blood Pressure Location BREN[facility] 05-27-2024 11:09-0500 Diastolic blood pressure 85 mm[Hg] BRENDA MARIN [facility] 05-27-2024 11:09-0500 Heart rate 103 /min BRENDA MARIN [facility] 05-27-2024 11:09-0500 Respiratory rate 20 /min BREN[facility] MAR[facility] 05-27-2024 11:09-0500 Systolic blood pressure 137 mm[Hg] BRENDA MARIN [facility] 05-22-2024 13:08-0500 Body height 160.02 cm Jeremiah Reed MD Work Phone: [facility] 05-22-2024 13:08-0500 Body mass index (BMI) [Ratio] 32.4 kg/m2 Jeremiah Reed MD Work Phone: [facility] 05-22-2024 13:08-0500 Body weight 83 kg Jeremiah Reed MD Work Phone: [facility] 05-22-2024 13:08-0500 Diastolic blood pressure 81 mm[Hg] Jeremiah Reed MD Work Phone: [facility] 05-22-2024 13:08-0500 Heart rate 99 /min Jeremiah Reed MD Work Phone: [facility] 05-22-2024 13:08-0500 SaO2% (BldA) [Mass fraction] 92 % Jeremiah Reed MD Work Phone: [facility] 05-22-2024 13:08-0500 Systolic blood pressure 127 mm[Hg] Jeremiah Reed MD Work Phone: [facility] 04-03-2024 12:00-0500 Body temperature 98 [degF] Jeremiah Reed MD Work Phone: [facility] 04-03-2024 12:00-0500 Diastolic blood pressure 83 mm[Hg] Jeremiah Reed MD Work Phone: [facility] 04-03-2024 12:00-0500 Heart rate 114 /min Jeremiah Reed MD Work Phone: [facility] 04-03-2024 12:00-0500 Respiratory rate 18 /min Jeremiah Reed MD Work Phone: [facility] 04-03-2024 12:00-0500 SaO2% (BldA) [Mass fraction] 94 % Jeremiah Reed MD Work Phone: [facility] 04-03-2024 12:00-0500 Systolic blood pressure 131 mm[Hg] Jeremiah Reed MD Work Phone: [facility] 04-03-2024 06:12-0500 Body weight 86.8 kg Jeremiah Reed MD Work Phone: [facility] 04-02-2024 08:00-0500 Inhaled oxygen flow rate 2 L/min Jeremiah Reed MD Work Phone: [facility] 03-31-2024 13:34-0500 Body height 160.02 cm Jeremiah Reed MD Work Phone: [facility] 03-31-2024 10:50-0500 Diastolic blood pressure 73 mm[Hg] Jeremiah Reed MD Work Phone: [facility] 03-31-2024 10:50-0500 Heart rate 94 /min Jeremiah Reed MD Work Phone: [facility] 03-31-2024 10:50-0500 Respiratory rate 16 /min Jeremiah Reed MD Work Phone: [facility] 03-31-2024 10:50-0500 SaO2% (BldA) [Mass fraction] 98 % Jeremiah Reed MD Work Phone: [facility] 03-31-2024 10:50-0500 Systolic blood pressure 141 mm[Hg] Jeremiah Reed MD Work Phone: [facility] 03-31-2024 07:20-0500 Body height 165.1 cm Jeremiah Reed MD Work Phone: [facility] 03-31-2024 07:20-0500 Body weight 87 kg Jeremiah Reed MD Work Phone: [facility] 03-31-2024 07:19-0500 Body temperature 98.4 [degF] Jeermiah Reed MD Work Phone: [facility] 03-23-2024 18:00-0500 Diastolic blood pressure 62 mm[Hg] Jeremiah Reed MD Work Phone: [facility] 03-23-2024 18:00-0500 Heart rate 82 /min Jeremiah Reed MD Work Phone: [facility] 03-23-2024 18:00-0500 Respiratory rate 18 /min Jeremiah Reed MD Work Phone: [facility] 03-23-2024 18:00-0500 SaO2% (BldA) [Mass fraction] 96 % Jeremiah Reed MD Work Phone: [facility] 03-23-2024 18:00-0500 Systolic blood pressure 128 mm[Hg] Jeremiah Reed MD Work Phone: [facility] 03-23-2024 13:42-0500 Body height 157.48 cm Jeremiah Reed MD Work Phone: [facility] 03-23-2024 13:42-0500 Body temperature 97.3 [degF] Jeremiah Reed MD Work Phone: [facility] 03-23-2024 13:42-0500 Body weight 81.19 kg Jeremiah Reed MD Work Phone: [facility] 03-12-2024 10:04-0400 Body mass index (BMI) [Ratio] 33.5 kg/m2 [facility] 03-12-2024 10:04-0400 Diastolic blood pressure 80 mm[Hg] [facility] 03-12-2024 10:04-0400 Heart rate 103 /min [facility] 03-12-2024 10:04-0400 Systolic blood pressure 133 mm[Hg] [facility] 03-11-2024 13:40-0400 Body height 161.29 cm [facility] 03-11-2024 13:40-0400 Body weight 87.08 kg [facility] 03-07-2024 11:13-0400 Body temperature 97.7 [degF] Renay Monteiro MD Work Phone: [facility] 03-07-2024 11:13-0400 Diastolic blood pressure 58 mm[Hg] Renay Monteiro MD Work Phone: [facility] 03-07-2024 11:13-0400 Heart rate 111 /min Renay Monteiro MD Work Phone: [facility] 03-07-2024 11:13-0400 Respiratory rate 17 /min Renay Monteiro MD Work Phone: [facility] 03-07-2024 11:13-0400 SaO2% (BldA) [Mass fraction] 91 % Renay Monteiro MD Work Phone: [facility] 03-07-2024 11:13-0400 Systolic blood pressure 137 mm[Hg] Renay Monteiro MD Work Phone: [facility] 03-07-2024 05:26-0400 Body mass index (BMI) [Ratio] 31.92 kg/m2 Renay Monteiro MD Work Phone: [facility] 03-07-2024 05:26-0400 Body weight 87 kg Renay Monteiro MD Work Phone: [facility] 03-02-2024 14:11-0400 Body height 165.1 cm Renay Monteiro MD Work Phone: [facility] 01-24-2024 12:56-0400 Body height 165.1 cm Christiano Maldonado DPM Work Phone: [facility] 01-24-2024 12:56-0400 Body mass index (BMI) [Ratio] 35.45 kg/m2 Christiano Maldonado DPM Work Phone: [facility] 01-24-2024 12:56-0400 Body weight 96.62 kg Christiano Maldonado DPM Work Phone: [facility] 01-24-2024 12:56-0400 Diastolic blood pressure 78 mm[Hg] Christiano Maldonado DPM Work Phone: [facility] 01-24-2024 12:56-0400 Heart rate 79 /min Christiano Maldonado DPM Work Phone: [facility] 01-24-2024 12:56-0400 Systolic blood pressure 125 mm[Hg] Christiano Maldonado DPM Work Phone: [facility] 12-25-2023 12:37-0400 Blood Pressure Location BRENDA MIAH [facility] 12-25-2023 12:37-0400 Body temperature 98.6 [degF] BRENDA MIAH [facility] 12-25-2023 12:37-0400 Diastolic blood pressure 86 mm[Hg] BRENDA MIAH [facility] 12-25-2023 12:37-0400 Heart rate 70 /min BRENDA MIAH [facility] 12-25-2023 12:37-0400 Respiratory rate 16 /min BRENDA MIAH [facility] 12-25-2023 12:37-0400 Systolic blood pressure 137 mm[Hg] BRENDA MIAH [facility] 09-26-2023 15:39-0400 Blood Pressure Location BRENDA MIAH [facility] 09-26-2023 15:39-0400 Diastolic blood pressure 84 mm[Hg] BRENDA MIAH [facility] 09-26-2023 15:39-0400 Heart rate 68 /min BRENDA MIAH [facility] 09-26-2023 15:39-0400 Respiratory rate 16 /min BRENDA MIAH [facility] 09-26-2023 15:39-0400 Systolic blood pressure 132 mm[Hg] BRENDA MIAH [facility] 08-28-2023 14:59-0400 Blood Pressure Location BRENDA MIAH [facility] 08-28-2023 14:59-0400 Body temperature 98.24 [degF] BRENDA MIAH [facility] 08-28-2023 14:59-0400 Diastolic blood pressure 80 mm[Hg] BRENDA MIAH [facility] 08-28-2023 14:59-0400 Heart rate 92 /min BRENDA MIAH [facility] 08-28-2023 14:59-0400 Respiratory rate 16 /min BRENDA MIAH [facility] 08-28-2023 14:59-0400 Systolic blood pressure 132 mm[Hg] BRENDA MIAH [facility] 06-05-2023 12:55-0500 Blood Pressure Location BRENDA MIAH [facility] 06-05-2023 12:55-0500 Diastolic blood pressure 88 mm[Hg] BRENDA MIAH [facility] 06-05-2023 12:55-0500 Heart rate 74 /min BRENDA MIAH [facility] 06-05-2023 12:55-0500 Respiratory rate 16 /min BRENDA MIAH [facility] 06-05-2023 12:55-0500 Systolic blood pressure 134 mm[Hg] BRENDA MIAH [facility] 04-30-2023 15:30-0500 Body height 161.29 cm Jeremiah Reed Other [facility] [employer] Other 04-30-2023 15:30-0500 Body mass index (BMI) [Ratio] 35.29 kg/m2 Jeremiah Reed Other [employer] Other 04-30-2023 15:30-0500 Body weight 91.81 kg Jeremiah Reed Other [employer] Other 04-30-2023 15:30-0500 Diastolic blood pressure 74 mm[Hg] Jeremiah Reed Other [employer] Other 04-30-2023 15:30-0500 Systolic blood pressure 109 mm[Hg] Jeremiah Reed Other [facility] [employer] Other 04-13-2023 14:40-0500 [facility] 04-13-2023 14:40-0500 Promise to Return [facility] 04-13-2023 13:00-0500 Diastolic blood pressure 77 mm[Hg] [facility]-13[facility] 13:00-0500 Heart rate 78 /min [facility] 12-01-2023 13:00-0500 [facility] 04-13-2023 13:00-0500 Promise to Return [facility] 04-13-2023 13:00-0500 Respiratory rate 16 /min [facility] 04-13-2023 13:00-0500 Systolic blood pressure 127 mm[Hg] [facility] 04-13-2023 12:13-0500 Heart rate 80 /min [facility] 04-13-2023 12:13-0500 SaO2% (BldA) [Mass fraction] 95 % [facility] 04-13-2023 12:12-0500 Body temperature 97.16 [degF] [facility] 04-13-2023 12:11-0500 Diastolic blood pressure 78 mm[Hg] [facility] 04-13-2023 12:11-0500 Mean blood pressure 94 mm[Hg] [facility] 04-13-2023 12:11-0500 Systolic blood pressure 125 mm[Hg] hari [facility] 04-13-2023 12:00-0500 Hour[employer] Rounding [facility] 04-13-2023 12:00-0500 Promise to Return [facility] 04-13-2023 09:10-0500 Diastolic blood pressure 70 mm[Hg] [facility] 04-13-2023 09:10-0500 Heart rate 87 /min [facility] 04-13-2023 09:10-0500 Mean blood pressure 90 mm[Hg] [facility] 04-13-2023 09:10-0500 Respiratory rate 17 /min [facility] 04-13-2023 09:10-0500 Systolic blood pressure 130 mm[Hg] [facility] 04-13-2023 08:00-0500 SaO2% (BldA) [Mass fraction] 93 % [facility] 04-13-2023 07:29-0500 Heart rate 89 /min [facility] 04-13-2023 07:29-0500 SaO2% (BldA) [Mass fraction] 94 % [facility] 04-13-2023 07:29-0500 Mean blood pressure 88 mm[Hg] [facility] 04-13-2023 07:29-0500 Body temperature 97.88 [degF] [facility] 04-13-2023 05:00-0500 Blood Pressure Location [facility] 04-13-2023 05:00-0500 Heart rate 95 /min [facility] 04-13-2023 05:00-0500 Mean blood pressure 100 mm[Hg] [facility] 04-13-2023 00:18-0500 Blood Pressure Location [facility] 04-13-2023 00:18-0500 Body temperature 97.52 [degF] [facility] 04-12-2023 20:33-0500 Body temperature 97.34 [degF] [facility] 04-12-2023 20:33-0500 Mean blood pressure 88 mm[Hg] [facility] 04-12-2023 18:03-0500 Blood Pressure Location [facility] 04-12-2023 16:49-0500 Respiratory rate 22 /min [facility] 04-12-2023 15:00-0500 Respiratory rate 20 /min [facility] 04-12-2023 12:24-0500 gluc 88 mg/dL [facility] 04-12-2023 12:24-0500 gluc hari [facility] 04-12-2023 12:19-0500 Body temperature 97.7 [degF] [facility] 03-29-2023 15:30-0500 Body height 161.29 cm Jeremiah Reed Other [facility] Other 03-29-2023 15:30-0500 Body mass index (BMI) [Ratio] 37.14 kg/m2 Jeremiah Reed Other [facility] Other 03-29-2023 15:30-0500 Body weight 96.62 kg Jeremiah Reed Other [facility] Other 03-29-2023 15:30-0500 Diastolic blood pressure 85 mm[Hg] Jeremiah Reed Other [facility] Other 03-29-2023 15:30-0500 Systolic blood pressure 144 mm[Hg] Jeremiah Reed Other [facility] Other 06-21-2022 14:42-0500 Blood Pressure Location BRENDA MARIN [facility] Encounters Encounter Date Encounter Type Care Provider Facility Start: 10-27-2024 ambulatory BRENDA Rutledgei ty:[facility] Start: 05-27-2024 End: 05-27-2024 ambulatory BRENDA MARIN Facility:[facility] Start: 05-27-2024 End: 05-27-2024 Patient encounter procedure BRENDA MARIN [facility] Start: 05-22-2024 End: 05-22-2024 ambulatory Jeremiah Reed MD Work Phone: [facility] Work Phone: Start: 05-22-2024 End: 05-22-2024 Patient encounter procedure Jeremiah Reed MD Work Phone: [facility] Work Phone: Start: 05-21-2024 Non-patient / Non-visit Jeremiah Reed MD Work Phone: [facility] Work Phone: Start: 04-24-2024 Non-patient / Non-visit Jeremiah Reed MD Work Phone: [facility] [place] Work Phone: Start: 04-22-2024 Non-patient / Non-visit Jeremiah Reed MD Work Phone: [facility] Work Phone: Start: 04-15-2024 End: 04-15-2024 ambulatory BRENDA MARIN Facility:[facility] Start: 04-15-2024 End: 04-15-2024 Patient encounter procedure BRENDA MARIN [facility] Start: 04-14-2024 Non-patient / Non-visit Jeremiah Reed MD Work Phone: [facility] Work Phone: Start: 04-02-2024 Non-patient / Non-visit Jeremiah Reed MD Work Phone: [facility] Work Phone: Start: 03-31-2024 End: 04-03-2024 Evaluation and management of inpatient Jeremiah Reed MD Work Phone: [facility] [place] [facility] Work Phone: Start: 03-24-2024 Non-patient / Non-visit Jeremiah Reed MD Work Phone: [facility] Work Phone: Start: 03-23-2024 End: 03-23-2024 Emergency department patient visit Jeremiah Reed MD Work Phone: [facility] Work Phone: Start: 03-13-2024 Non-patient / Non-visit Jeremiah Reed MD Work Phone: [facility] Work Phone: Start: 03-12-2024 End: 03-12-2024 ambulatory [facility] Work Phone: Start: 03-12-2024 End: 03-12-2024 Patient encounter procedure [facility] Work Phone: Start: 03-11-2024 Non-patient / Non-visit [facility] Work Phone: Start: 03-10-2024 End: 03-10-2024 Telephone encounter [employer] [facility] Comment on above: Referral Start: 03-10-2024 Non-patient / Non-visit [facility] Work Phone: Start: 03-04-2024 End: 03-04-2024 ambulatory BRENDA MARIN Facility:[facility] Start: 03-04-2024 End: 03-04-2024 Patient encounter procedure BRENDA MARIN [facility] Start: 03-02-2024 Non-patient / Non-visit Jeremiah Reed MD Work Phone: [facility] Physician [facility] Work Phone: Start: 03-02-2024 End: 03-07-2024 Evaluation and management of inpatient Renay Monteiro MD Work Phone: [facility] 9 Acute Comment on above: 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) Start: 03-01-2024 Non-patient / Non-visit [facility] Work Phone: Start: 02-04-2024 End: 02-04-2024 ambulatory Drake Delatorre MD Facility:[facility] Start: 01-24-2024 End: 01-24-2024 Bamboo flowsheet [...] 01-07-2024 End: 01-07-2024 ambulatory Drake Delatorre MD Facility:[facility] Start: 12-27-2023 End: 12-27-2023 ambulatory BRENDA MARIN Facility:[facility] Start: 12-27-2023 End: 12-27-2023 Patient encounter procedure BRENDA MARIN [facility] Start: 12-25-2023 End: 12-25-2023 ambulatory BRENDA MARIN Facility:[facility] Start: 12-25-2023 End: 12-25-2023 Patient encounter procedure BRENDA MARIN [facility] Start: 12-18-2023 Non-patient / Non-visit [facility] Work Phone: Start: 12-17-2023 End: 12-17-2023 ambulatory Drake Delatorre MD Facility:[facility] Start: 12-03-2023 End: 12-03-2023 ambulatory Cayden GALLO Facility:[facility] Start: 12-03-2023 End: 12-03-2023 Patient encounter procedure Cayden GALLO [facility] Start: 11-26-2023 End: 11-26-2023 ambulatory Alexandro CARMONA Facility:[facility] [place] Start: 11-26-2023 End: 11-26-2023 Patient encounter procedure Alexandro CARMONA [facility] Start: 11-08-2023 End: 11-08-2023 ambulatory CHRISTIANO MALDONADO Not Available Start: 10-29-2023 End: 10-29-2023 ambulatory Drake Delatorre MD Facility: [place] Start: 10-15-2023 End: 10-15-2023 ambulatory Drake Delatorre MD Facility: [facility] Start: 09-26-2023 End: 09-26-2023 ambulatory BRENDA MARIN Facility:[facility] Start: 09-26-2023 End: 09-26-2023 Patient encounter procedure BRENDA MARIN [facility] Start: 09-17-2023 End: 09-17-2023 ambulatory Drake Delatorre MD Facility:[facility] [place] Start: 08-30-2023 End: 08-30-2023 ambulatory CHRISTIANO MALDONADO Not Available Start: 08-28-2023 End: 08-28-2023 ambulatory BRENDA MARIN Facility:[facility] [place] Start: 08-28-2023 End: 08-28-2023 Patient encounter procedure BRENDA MARIN [facility] [place] Start: 07-23-2023 End: 07-23-2023 ambulatory Cayden GALLO Facility:[facility] Start: 07-23-2023 End: 07-23-2023 Patient encounter procedure Cayden GALLO [facility] Start: 07-09-2023 End: 07-09-2023 ambulatory BRENDAROSA ELENA MARIN Facility:[facility] Start: 06-20-2023 End: 06-20-2023 ambulatory Jeremiah Reed Other [facility] Other Start: 06-20-2023 Telephone encounter Jeremiah Reed [facility] Start: 06-05-2023 End: 06-05-2023 ambulatory BRENDA Zulema MIAH Facility:[facility] Start: 06-05-2023 End: 06-05-2023 Lab Drop off BRENDA Zulema MARIN [facility] Start: 06-05-2023 End: 06-05-2023 ambulatory BRENDA Zulema MARIN Facility:[facility] Start: 06-05-2023 End: 06-05-2023 Patient encounter procedure BRENDA Zulema SOLIMANRY [facility] Start: 04-30-2023 End: 04-30-2023 ambulatory Jeremiah Reed Other [facility] Other Start: 04-30-2023 Office outpatient vi sit 25 minutes Jeremiah Reed [facility] Start: 04-30-2023 Telephone encounter Jeremiah Reed [facility] Start: 04-17-2023 End: 04-17-2023 ambulatory Jeremiah Reed Other [facility] Other Start: 04-17-2023 Telephone encounter Jeremiah Reed [facility] Start: 04-13-2023 End: 04-13-2023 ambulatory Ray Fofana Other [facility] Other Start: 04-13-2023 Telephone encounter Ray Fofana [facility] Start: 04-12-2023 End: 04-13-2023 Observation Jacintoag Sydneynadja [facility] Start: 04-09-2023 End: 04-09-2023 ambulatory Drake Delatorre MD Facility:[facility] Start: 03-30-2023 End: 03-30-2023 ambulatory Jeremiah Reed Other [facility] Other Start: 03-30-2023 Telephone encounter Jeremiah Reed [facility] Start: 03-29-2023 End: 03-29-2023 ambulatory Jeremiah Reed Other [employer] Other Start: 03-29-2023 Transitional care manage srvc 14 day discharge Jeremiah Reed [facility] Start: 03-05-2023 End: 03-05-2023 ambulatory Drake Delatorre MD Facility:[facility] Start: 09-01-2022 End: 09-02-[address] JEREMIAH REED Facility:[facility] Start: 08-29-2022 End: 08-30-2022 ambulatory NARENDRANATH LAKSHMIPATHY . Facility:[facility] Start: 08-21-2022 End: 08-22-[address] ESHAN MILLER Facility:[facility] Start: 08-10-2022 End: 08-11-2022 ambulatory BRENT MALDONADO Facility:[facility] Start: 06-21-2022 End: 06-21-2022 Patient encounter procedure BRENDA MARIN [facility] Start: 06-12-2022 End: 06-13-[address] [...] Work Phone: [facility] Start: 08-21-2018 End: 08-21-2018 Patient encounter procedure Radha L Clinker Work Phone: [facility] Start: 06-28-2018 End: 06-28-2018 Patient encounter procedure Radha L Clinker Work Phone[facility] Procedures Date Procedure Procedure Detail Performing Clinician Start: 03-31-2024 Bacteria identified in Blood by Culture Jeremiah Reed MD Work Phone: Start: 03-31-2024 Urine culture Jeremiah milner MD [...] Adult BMI Screening Adult BMI Screen ing [facility] Start: 03-02-2025 Depression Screening Depression Scre ening [facility] Start: 03-02-2025 Tobacco Screening Tobacco Screening [facility] Start: 04-03-2024 End: 04-03-2024 Patient encounter procedure 04/03/2024 1:30 PM EST Procedure Visit [facility] [address] [place] [address] Christiano Maldonado DPM [address] [facility] [address] [place] [address] [facility] Start: 04-03-2024 [facility] Start: 04-02-2024 Referral to rehabilitation physician [facility] Start: 04-01-2024 Comprehensive metabo lic 2000 panel - Serum or Plasma [facility] Start: 04-01-2024 [facility] Start: 03-31-2024 Bacteria identified in Blood by Culture Blood Culture [facility] Start: 03-31-2024 Bacteria identified in Urine by Culture Urine Culture [facility] Start: 03-31-2024 Physical therapy procedure [facility] Start: 03-31-2024 Referral to occupati onal therapist [facility] Start: 03-31-2024 Urine culture [facility] Start: 03-31-2024 [facility] Start: 03-31-2024 Hospital admission [facility] Start: 03-31-2024 End: 03-31-2024 [facility] Start: 03-31-2024 Urine culture [facility] Start: 03-23-2024 Urine culture [facility] Start: 03-23-2024 Bacteria identified in Urine by Culture Urine Culture [facility] Start: 01-24-2024 End: 01-24-2024 Patient encounter procedure 01/24/2024 1:00 PM EDT Procedure Visit [facility] [address] [facility] [address] [place] [id number] Christiano Maldonado DPM [address] [facility] [address] [place] [address] Onychomycosis (Primary Dx); Toe pain, bilateral [facility] Comment on above: Onychomycosis (Prima ry Dx); Toe pain, bilateral Start: 01-13-2024 COVID-19 Vaccine ( season) COVID-19 Vaccine ( season) [facility] [employer] Start: 01-13-2024 Influenza vaccination [facility] Start: 10-26-2022 ambulatory Ambulatory Facility:[facility] 1 Start: 01-12-2019 Influenza vaccination INFLUENZ A VACCINE (Season Ended) [facility] Start: 01-12-2018 Influenza vaccination INFLUENZA VACC INE (#1) [facility] Start: 02-10-2012 Fall Risk Screening Fall Risk Screen ing [facility] Start: 02-10-2012 Pneumococcal vaccination PNEUM OCOCCAL VACCINE SERIES (1 of 2 - PCV13) [facility] Start: 02-10-2012 Pneumococcal Vaccine : 65+ Years (1 of 1 - PCV) Pneumococcal Vaccine: 65+ Years (1 of 1 - PCV) [facility] Start: 1997 Administration of varicella zoster vaccine Zoster (Shingles) Vaccine (1 of 2) [facility] Start: 1997 Protein mass conc COLON CANCER SCREENING DISCUSSION [facility] Start: 1997 Zoster vaccine hzv l derrell for subcutaneous use ZOSTER (SHINGLES) VACCINE (1 of 2) [facility] Start: 1987 Fasting lipid profile LIPID SCREENIN G [facility] Start: 1987 Protein mass conc MAMMOGRAM SC REENING DISCUSSION [facility] Start: 02-10-1968 Screening for malign ant neoplasm of cervix PAP SMEAR DISCUSSION [facility] Start: 1966 DTaP,Tdap and Td Vaccines (1 - Tdap) DTaP,Tdap and Td Vaccines (1 - Tdap) [facility] Start: 1966 Third diphtheria, tetanus and acellular pertussis (DTaP) vaccination TDAP (ADULT) [facility] Start: 1965 Tetanus vaccination [facility] Start: 1947 Hepatitis C antibody , confirmatory test HEPATITIS C VIRUS SCREENING [facility] Start: 1947 Medicare Annual Well ness Visit Medicare Annual Wellness Visit [facility] Start: 1945 Screening for osteoporosis DEXA SCAN DISCUSSION 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 starting 03/05/2024 until 03/05/2025 [facility] Work Phone: Comment on above: Once a week for 1 Oc currences starting 03/05/2024 until 03/05/2025 End: 03-05-2024 Holter monitor study 5 Day EEG Video Monitoring Neurology Routine Lab max of 3 days, Daily, for lab use only for 5 Occurrences starting 03/02/2024 until 03/05/2024, 2 completed [facility] Comment on above: Lab max of 3 days, D aily, for lab use only for 5 Occurrences starting 03/02/2024 until 03/05/2024, 2 completed Oxygen Therapy - Maintain SpO2: 90%; *[employer] Guidelines for O2: Yes; Document: \[email or web address]\epi c\EPIC_Reference\Orders\ Respiratory Care Guidelines\CPG Oxygen 2022.pdf Oxygen Therapy - Maintain SpO2: 90%; *SUPER[employer] Guidelines for O2: Yes; Document: \[email or web address]\ep ic\EPIC_Reference\Order s\Respiratory Care Guidelines\CPG Oxygen 2022.pdf Respiratory Care Routine As Needed until discontinued starting 03/02/2024 [facility] Work Phone: Comment on above: As Needed until disc ontinued starting 03/02/2024 Patient Education Constipation, Adult (DC) Urinary Tract Infection, Adult (DC) [facility] Work Phone: Patient referral [facility] Work Phone: Urine culture [facility] Immunizations Immunization Date Immunization Notes Care Provider Fa cili 03-31-2021 SARS-CoV-2 (COVID-19 ) mRNA BNT-162b2 vax BRENDA MARIN [facility] 07-21-2020 SARS-CoV-2 (COVID-19 ) Ad26 vaccine, recombinant BRENDA MARIN [facility] 04-11-2020 influenza virus vaccine, unspecified formulation BRENDA MARIN [facility] 04-11-2020 Influenza, High-dose , Quadrivalent Renay Monteiro MD Work Phone: [facility] 02-02-2011 influenza virus vaccine, unspecified formulation BRENDA MARIN [facility] 02-02-2011 influenza, seasonal, injectable Renay Monteiro MD Work Phone: [facility] Payers Date Payer Category Payer Unknown [id number] 2024 Self-pay [id number] 2021 Commercial [employer]emnity [employer] Member Subscriber Plan / Payer (Effective 2021-Present) Name: Aaron Lewis Relation to Subscriber: Self Name: Aaron Lewis Payer ID: Not on file Type: Not on file Address: [place] [id number] 2021 Unknown 2012 Medicare 1957 Medicare [id number] 1959 Unknown [id number] 1947 Unknown [id number] 2..840.1.521175.3.579.2.5 1947 Unknown [id number] 2.840.1.691071.3.579.2.5 1947 Unknown [id number] 2.16840.1.465381.3.579.2.5 1947 Unknown [id number] 2.16840.1.625590.3.579.2.5 1947 Unknown [id number] 2.16.840.1.959162.3.579.2.5 1947 Unknown [id number] 2.16.840.1.100615.3.579.2.5 93 1947 Unknown [id number] 2.16.840.1.915413.3.579.2.5 93 1947 Unknown [id number] 2.16.840.1.335450.3.579.2.5 93 1947 Unknown [id number] 2.16.840.1.347293.3.579.2.5 93 1947 Unknown [id number] 2.16.840.1.310064.3.579.2.5 93 1947 Unknown [id number] 2.16.840.1.293894.3.579.2.5 1947 Unknown [id number] 2.16.840.1.363023.3.579.2.5 1947 Unknown [id number] 2.16.840.1.105386.3.579.2.5 1947 Unknown [id number] 2.16.840.1.449758.3.579.2.5 1947 Unknown [id number] 2.16.840.1.210920.3.579.2.5 1947 Unknown [id number] 2.16.840.1.830079.3.579.2.5 1947 Unknown [id number] 2.16.840.1.657719.3.579.2.5 1947 Unknown [id number] 2.16.840.1.941408.3.579.2.5 1947 Unknown [id number] 2.16.840.1.359966.3.579.2.5 1947 Unknown [id number] 2.16.840.1.726661.3.579.2.5 1947 Unknown [id number] 2.16.840.1.370363.3.579.2.5 93 1947 Unknown [id number] 2.16.840.1.958001.3.579.2.1 259 1947 Unknown [id number] 2.16.840.1.717833.3.579.2.1 259 1947 Unknown [id number] 2.16.840.1.422023.3.579.2.1 259 1947 Unknown [id number] 2.16.840.1.883414.3.579.2.1 96 1947 Unknown [id number] 2.16.840.1.940822.3.579.2.1 96 1947 Unknown [id number] 2.16.840.1.729998.3.579.2.1 96 1947 Unknown [id number] 2.16.840.1.617336.3.579.2.1 96 1947 Unknown [id number] 2.16.840.1.526330.3.579.2.1 96 1947 Unknown [id number] 2.16.840.1.534850.3.579.2.1 96 1947 Unknown [id number] 2.16.840.1.833946.3.579.2.1 96 1947 Unknown [id number] 2.16.840.1.577337.3.579.2.1 96 1947 Unknown [id number] 2.16.840.1.881682.3.579.2.7 27 1947 Unknown [id number] 2.16.840.1.324562.3.579.2.7 27 1947 Unknown [id number] 2.16.840.1.092816.3.579.2.7 27 1947 Unknown [id number] 2.16.840.1.007627.3.579.2.7 27 1947 Unknown [id number] 2.16.840.1.689270.3.579.2.7 1947 Unknown [id number] 2.16.840.1.219806.3.579.2.7 1947 Unknown [id number] 2.16.840.1.585331.3.579.2.7 1947 Unknown [id number] 2.16.840.1.612072.3.579.2.7 1947 Unknown [id number] 2.16.840.1.699782.3.579.2.7 1947 Unknown [id number] 2.16.840.1.131097.3.579.2.7 1947 Unknown [id number] 2.16.840.1.346832.3.579.2.7 1947 Unknown [id number] 2.16.840.1.179810.3.579.2.7 1947 Unknown [id number] 2.16.840.1.925600.3.579.2.7 1947 Unknown [id number] 2.16.840.1.544316.3.579.2.7 1947 Unknown [id number] 2.16.840.1.661762.3.579.2.7 27 Unknown Regular Insurance [id number] Unknown [id number] 2.16.840.1.430501.3.579.2.5 31 Unknown [id number] 2.16.840.1.738038.3.579.2.5 31 Social History Date Type Detail Facility [facility] ever smoked [facility] Start: 1945 Sex Assigned At Not on file [facility] Start: 02-03-2021 End: 03-02-2024 Tobacco smoking status Ex-smoker (finding) [facility] Start: 11-08-2023 End: 03-02-2024 Sex Assigned At Female [facility] Tobacco smoking status Never [facility] Start: 1945 Sex Assigned At Female [facility] Start: 03-23-2024 End: 03-31-2024 Tobacco smoking status NHIS Never smoked tobacco (finding) [facility] Start: 03-01-2024 End: 03-23-2024 Sex Female (finding) [facility] History of tobacco use Current smoker [facility] History of tobacco use Cigarette Smoker [facility] History of tobacco use Passive smoker [facility] Start: 08-30-2023 End: 03-02-2024 Tobacco use and exposure Smokeless tobacco non-user [facility] Start: 11-08-2023 End: 01-24-2024 Alcoholic beverage intake Defer [facility] Start: 11-08-2023 End: 03-02-2024 History of Social function [facility] Start: 03-05-2024 Alcoholic beverage intake Lifetime non-drinker (finding) [facility] Has the [employer], [employer], or water [employer] threatened to shut off services in your home in past 12Mo No [facility] How often to you hav e a drink containing alcohol? Never [facility] Goals Date Patient Goal Desired Activity /State Personal health goal Comment on above: Formatting of this n ote might be different from the original. Evaluation of progress towards goal: Functional Status Date Assessment Result Facility 05-27-2024 Functional Status N/A [facility] 04-03-2024 Functional status Patient at Baseline [facility] Work Phone: 12-25-2023 Functional Status N/A [facility] 12-03-2023 Functional Status N/A [facility] 09-26-2023 Functional Status N/A [facility] 08-28-2023 Functional Status N/A [facility] 06-05-2023 Functional Status N/A [facility] 04-12-2023 Functional Status N/A [facility] 04-12-2023 Functional Status [facility] 06-21-2022 Functional Status N/A [facility] Mental Status Date Assessment Result Facility 04-03-2024 Cognitive function Cognitive Sta tus Patient at Baseline [facility] Work Phone: [facility] Clinical Notes 01-12-2013 to 05-27-2024 Note Date & Type Note Facility 05-27-2024 Hospital Discharg e instructions Patient Education 05/27/2024 12:25:11 Overactive Bladder, Adult Overactive Bladder, Adult Overactive [...] your health care provider. General instructions Take agmp-enp-xnpopcn and prescription medicines only as told by [...] provider. Document Revised: 01/17/2021 Document Reviewed: 01/17/2021 [employer] Patient Education 2023 [facility]. Follow Up Care 05/15/2024 14:25:45 With:BRENDA MARIN PA-C, URL Address: [address] [place] [address]. [place] [address] Business (1) When:6 weeks [facility] 05-27-2024 Note Patient Education Obstetrics and Gynecology Overactive Bladder, [...] be caused by other factors, such as: ??? Medical conditions: ? Urinary tract infection. ? Infection of nearby tissues. ? Prostate enlargement. ? Bladder stones, inflammation, or tumors. ? Diabetes. ? Muscle or nerve weakness, especially from these conditions: ? A spinal cord injury. ? Stroke. ? Multiple sclerosis. ? Parkinson's disease. ??? Other causes: ? Surgery on the uterus or urethra. ? Drinking too much caffeine or alcohol. ? Certain medicines, especially those that eliminate extra fluid in the body (diuretics). ? Constipation. What increases the risk? You may be at greater risk for overactive bladder if you: ??? Are an older adult. ??? Smoke. ??? Are going through menopause. ??? Have prostate problems. ??? Have a neurological disease, such as stroke, dementia, Parkinson's disease, or multiple sclerosis (MS). ??? Eat or drink alcohol, spicy food, caffeine, and other things that irritate the bladder. ??? Are overweight or obese. What are the signs or symptoms? Symptoms of this condition include a sudden, strong urge to urinate. Other symptoms include: ??? Leaking urine. ??? Urinating 8 or more times a day. ??? Waking up to urinate 2 or more times overnight. How is this diagnosed? This condition may be diagnosed based on: ??? Your symptoms and medical history. ??? A physical exam. ??? Blood or urine tests to check for possible causes, such as infection. You may also need to see a health care provider who specializes in urinary tract problems. This is called a urologist. How is this treated? Treatment for overactive bladder depends on the cause of your condition and whether it is mild or severe. Treatment may include: ??? Bladder training, such as: ? Learning to control the urge to urinate by following a schedule to urinate at regular intervals. ? Doing Kegel exercises to strengthen the pelvic floor muscles that support your bladder. ??? Special devices, such as: ? Biofeedback. This [...] into the vagina and supports the bladder. ??? Medicines, such as: ? Antibiotics to treat bladder infection. ? Antispasmodics to stop the bladder from releasing urine at the wrong time. ? Tricyclic antidepressants to relax bladder muscles. ? Injections of botulinum toxin type A directly into the bladder tissue to relax bladder muscles. ??? Surgery, such as: ? A device may be implanted to help manage the nerve signals that control urination. ? An electrode may be implanted to stimulate electrical signals in the bladder. ? A procedure may be done to change the shape of the bladder. This is done only in very severe cases. Follow these instructions at home: Eating and drinking ??? Make diet or lifestyle changes recommended by [...] such as fried and sweet foods. Lifestyle ??? Lose weight if needed. ??? Do not use any products that contain nicotine or tobacco. These include cigarettes, chewing tobacco, and vaping devices, such as e-cigarettes. If you need help quitting, ask your health care provider. General instructions ??? Take mxzp-qjz-bdxffzo and prescription medicines only as told by your health care provider. ??? If you were prescribed an antibiotic medicine, take it as told by your health care provider. Do not stop taking the antibiotic even if you start to feel better. ??? Use any implants or pessary as told by your health care provider. ??? If needed, wear pads to absorb urine leakage. ??? Keep a log to track how much and when you drink, and whe (more content not included)... [facility] 04-03-2024 Progress note Note Date/Time April 03, 2024 9:49am [facility] [address] [place] [address] Hospitalist Progress Note Signed Patient: Aaron Lewis MR#: [id number] : 1945 Acct:[id number] Age/Sex: 79 / F Adm Date: 4 Loc: 3T Room: [address] [place] [address] Type: ADM IN Attending Dr: Rosendo Law [...] retention PT OT recommended rehab Discharge to [facility] facility today Medically remained stable Will need [...] phone and updated him as well at [phone] Moderate level of MDM based on above issue and discussing plan This note is created using voice recognition software. All efforts were made tominimize errors, if they are is due to spinning frame changer. Rosendo Law MD Hospitalist Documented By: Rosendo Law MD 04/03/2447 Signed By: <Electronically signed by Rosendo Law MD> 04/03/24 0949 [facility] Work Phone: 1(662) 452-589111-21-2024 Discharge summary Author Rosendo Law [facility] Note Date/Time April 03, 2024 9:46am [facility] [address] [place] [address] Discharge Summary Signed with Davis Patient: Aaron Lewis MR#: [id number] : 1945 Acct:[id number] Age/Sex: 79 / F Adm Date: 4 Loc: 3T Room: [address] [place] [address]: Rosendo Law MD Copies to: MD Rosendo Wray MD~ ADDENDUM1 Spoke with patient's son Martin over the phone and updated him as well. Plan for discharge to [facility] today. Follow-up with urology as outpatient. Urine culture negative has no further need for antibiotic. Will need outpatientvoiding trial with urology. Addendum Documented By: Rosendo Law MD 04/03/2446 Addendum Signed By: <Electronically signed by Rosendo [...] Discharge Plan Discharge Plan Patient Dis[place] [facility] [place]: Ambulate as Tolerated Diet: Low-Sodium Prescriptions: [...] unit) capsule 50 mcg PO DAILY glucosamine gha-yuhudduapp-gdc 500-400-200 mg tablet 1 tab PO BID [...] signed by Rosendo Law MD> 04/02/24 1050 [facility] Work Phone: 1(649) 920-381711-21-2024 [place] [id number] Hospitalist Progress Note Signed Patient: Aaron Lewis MR#: [id number] : 1945 Acct:[id number] Age/Sex: 79 / F Adm Date: 4 Loc: Room: [address] [place] [address] Type: ADM IN Attending Dr: Rosendo Law [...] retention PT OT recommended rehab Discharge to [facility] facility today Medically remained stable Will need [...] phone and updated him as well at [phone] Moderate level of MDM based on above issue and discussing plan This note is created using voice recognition software. All efforts were made tominimize errors, if they are is due to spinning frame changer. Rosendo Law MD Hospitalist Documented By: Rosendo Law MD 04/03/2447 Signed By: 04/03/2449 [facility]11-21-2024 [place] [address] Discharge Summary Signed with Addenda Patient: Aaron Lewis MR#: [id number] : 1945 Acct:[id number] Age/Sex: 79 / F Adm Date: 4 Loc: Room: [address] [place] [address]: Rosendo Law MD Copies to: MD Rosendo Wray MD~ ADDENDUM1 Spoke with patient's son Martin over the phone and updated him as well. Plan for discharge to [facility] today. Follow-up with urology as outpatient. Urine culture negative has no further needfor antibiotic. Will need outpatientvoiding trial with urology. Addendum Documented By: Rosendo Law MD 04/03/24945 Addendum Signed By: 04/03/24945 Providers Date of Discharge: 04/02/24 Discharging Provider: Rosendo Law Primary Care Provider: Jeremiah Reed Consults: 03/31/24 12:15 Consult to Occupational Therapy Routine Comment: Physician Instructions: Consult to OT for:: Evaluation and Treat Consult to Physical Therapy Routine Comment: Physician Instructions: Consult to PT for:: Evaluation and Treat 04/02/24 08:40 Consult to Physiatry Routine Comment: Consulting Provider: JESSICA - Phys Med - Rehab Reason For [...] Discharge Plan Discharge Plan Patient Disposition: [place] [facility] [place]: Ambulate as Tolerated Diet: Low-Sodium Prescriptions: [...] unit) capsule 50 mcg PO DAILY glucosamine ijt-gpofkmbxny-pcy 500-400-200 mg tablet 1 tab PO BID [...] Days Documented By: Rosendo Law MD 04/02/24 104 Signed By: 04/02/24 1050 [facility]11-20-2024 Consult note Author Ray Fofana [facility] Note Date/Time April 02, 2024 2:18pm [facility] [address] [place] [address] Physiatry (Rehab) Consult Note Signed Patient: Aaron Lewis MR#: [id number] : 1945 Acct:[id number] Age/Sex: 79 / F Adm Date: 4 Loc: Room: [address] [place] [address] Type: ADM IN Attending Dr: Rosendo Law [...] at home. 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 [facility] Osteoporosis Primary hyperparathyroidism Landaverde's neuroma Hyperparathyroidism Hypercalcemia Essential (primary) hypertension COPD, moderate CKD (chronic kidney disease), stage III Anxiety Osteoporosis Problem List clean-up per request of Phys. EHR [facility] Smoker Problem List clean-up per request of Phys. [facility] Uterine cancer Problem List clean-up per request of Phys. [facility] GERD (gastroesophageal reflux disease) Problem List clean-up per request of Phys. [facility] Ovarian cancer right Problem List clean-up per request of Phys. [facility] Surgical History H/O: hysterectomy History of lumbar laminectomy History of lumbar fusion Problem List clean-up per request of Phys. [facility]HR [facility] H/O left breast biopsy Problem List clean-up per request of Phys. [facility] H/O hysterectomy with oophorectomy Problem List clean-up per request of Phys. [facility] H/O oophorectomy right Problem List clean-up per request of Phys. [facility] Family History Sister Brittle bone disease Daughter [...] recommend lower level of care such as [facility] facility or home with home health care Patient was personally seen by me, Dr. Fofana, on the day of encounter, reviewed the history and the relevant portions of the chart, including current orders, allied health and diet consultant notes, labs/imaging and performed admon elements of exam and I formulated the plan of care and facilitated the medical decision making. I completed a substantive portion of this encounter, the medical decision making portion of this note in its entirety, including Allied health note review, nursing note review, diet consultant note review, discussion with nursing and case management, and more than 50% of my time was spent on counseling and coordination of care, time spent 45 minutes Documented By: Ray Fofana MD 04/02/24 0853 Signed By: <Electronically signed by Ray Fofana MD> 04/02/24 [facility] Work Phone: 1(655) 272-150411-20-2024 [place] [address] Physiatry (Rehab) Consult Note Signed Patient: Aaron Lewis MR#: [id number] : 1945 Acct:[id number] Age/Sex: 79 / F Adm Date: 4 Loc: Room: [address] [place] [address] Type: ADM IN Attending Dr: Rosendo Law [...] at home. 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 Fofana, on the day of encounter, reviewed the history and therelevant portions of the chart, including current orders, allied health and diet consultant notes, labs/imaging and performed damon elements of exam and I formulated the plan of care and facilitated the medical decision making. I completed a substantive portion of this encounter, the medical decision making portion of this note in its entirety, including Allied health note review, nursing note review, diet consultant note review, discussion with nursing and case management, and more than 50% of my time was spent on counseling and coordination of care, time spent 45 minutes Documented By: Ray Fofana MD 04/02/24 0853 Signed By: 04/02/24 1418 [facility]11-19-2024 Progress note Author Rosendo Law [facility] Note Date/Time April 01, 2024 9:55am [facility] [address] [place] [address] Hospitalist Progress Note Signed Patient: Aaron Lewis MR#: [id number] : 1945 Acct:[id number] Age/Sex: 79 / F Adm Date: 4 Loc: Room: [address] [place] [address] Type: ADM IN Attending Dr: Rosendo Law [...] Tablet.Dr PO 04/01/25 08:59 40 mg DAILY [facility] Administration Polyethylene Glycol 17 gm 03/31/24 12:33 [...] errors, if they are is due to spinning frame changer. Rosendo Law MD Hospitalist Documented By: Rosendo Law MD 04/01/24 0951 Signed By: <Electronically signed by Rosendo Law MD> 04/01/24 0955 [facility] Work Phone: 1([phone]) 688-286911-19-2024 [place] [address] Hospitalist Progress Note Signed Patient: Aaron Lewis MR#: [id number] : 1945 Acct:[id number] Age/Sex: 79 / F Adm Date: 4 Loc: Room: [address] [place] [address] Type: ADM IN Attending Dr: Rosendo Law [...] errors, if they are is due to spinning frame changer. Rosendo Law MD Hospitalist Documented By: Rosendo Law MD 04/01/24 0951 Signed By: 04/01/24 0955 [facility]11-18-2024 History and physical note Author Rosendo Law [facility] Note Date/Time March 31, 2024 12:29pm [facility] [address] [place], [place] [address] Hospitalist H&P Signed Patient: Aaron Lewis MR#: [id number] : 1945 Acct:[id number] Age/Sex: 79 / F Adm Date: 4 Loc: 3T Room: [address] [place] [address] Type: ADM IN Attending Dr: Rosendo Law [...] and referred to hospitalist service forfurther management. 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 Rosendo Law MD Hospitalist IP vs OBS [...] signed by Rosendo Law MD> 03/31/24 1229 [facility] Work Phone: 1(429) 979-677211-18-2024 [place] [address] Hospitalist H&P Signed Patient: Aaron Lewis MR#: [id number] : 1945 Acct:[id number] Age/Sex: 79 / F Adm Date: 4 Loc: Room: [address] [place] [address] Type: ADM IN Attending Dr: Rosendo Law [...] and referred to hospitalist service forfurther management. [facility] Medical History (Updated 03/31/24 @ 12:27 [...] List clean-up per request of Phys. [facility] Surgical History H/O: hysterectomy History of lumbar laminectomy History of lumbar fusion Problem List clean-up per request of Phys. [facility] H/O left breast biopsy Problem List clean-up per request of Phys. [facility] H/O hysterectomy with oophorectomy Problem List clean-up per request of Phys. EHR [facility] H/O oophorectomy right Problem List clean-up per request of Phys. [facility] Family History Sister Brittle bone disease Daughter [...] % (Auto) 19.2 % (.) 03/31/24 07:57 Bell % (Auto) 8.9 % (.) 03/31/24 07:57 Eos % (Auto) 2.6 % (.) 03/31/24 07:57 Baso % (Auto) 1.1 % (.) 03/31/24 07:57 Nucleat RBC Rel Count 0.1 /100 WBC (0-0.5) 03/31/24 07:57 Neut # (Auto) 4.7 x10E3/uL (1.8-7.7) 03/31/24 07:57 Lymph # (Auto) 1.3 x10E3/uL (1.00-4.8) 03/31/24 07:57 Bell # (Auto) 0.6 x10E3/uL (0.0-0.8) 03/31/24 07:57 [...] pH 6.0 (5.0-9.0) 03/31/24 07:19 Ur Specific [place] 1.011 (1.001-1.030) 03/31/24 07:19 Urine Protein Negative [...] errors, if they are is due to spinning frame changer. Rosendo Law MD Hospitalist IP vs OBS Justification Based on differential dx, clinical care plan, and risk of adverse events, if untreated, in my clinical judgement this patient requires an acute care setting as: INPATIENT because of an expectation ofan over 2 midnight stay. Estimated length of stay (# of days): 3 Documented By: Rosendo Law MD 03/31/24 1225 Signed By: 03/31/24 1229 [facility]11-18-2024 Radiology Diagnostic study note [facility] [place] [address] [place] [address] CT Scan Report Signed Patient: Aaron Lewis MR#: [id number] : 1945 Acct:[id number] Age/Sex: 79 / F ADM Date: 4 Loc: ER Room: Type: [facility] ER Attending Dr: Copies to: Jarad Vargas DO~ Ordering Provider: Jarad Vargas DO Date of Service: 03/31/24 CT/CT abdomen pelvis w con: ams lower abd/back pain ([id number]) CT/CT head/brain wo con: ams Unenhanced head [...] Emil Martin M.D.03/31/2024 10:02 AM Dictation Location: [facility]--16 Transcribed By: [facility] 03/31/24 1002 Dictated By: Emil Martin DO 03/31/24 0952 Signed By: 03/31/[address] [place], [place] 3627110-30-2024 Evaluation note* Diagnosis Onset Date Resolution Status Admit Date Chronic back pain greater th an 3 months duration acute March 12, 2024 9:43am CKD (chronic kidney disease) , stage III acute March 12 9:43am Hypertension acute February 9:43am 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 acute March 12 9:43am [facility] Work Phone: 1(326) 655-940010-30-2024 Evaluation note* Diagnosis Onset Date Resolution Status [...] disease) , stage III acute March 31, 024 12:23pm Dehydration acute March 12:23pm Hypertension acute March 12:23pm 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 acute March 31 2 024 12:23pm [facility] Work Phone: 1(184) 628-983610-30-2024 Evaluation note* Diagnosis Onset Date Resolution Status [...] 2023 12:23pm Altered mental status acute Mar 12:23pm Chronic back pain greater th an 3 months duration acute March 31, 2024 12:23pm CKD (chronic kidney disease) , stage III acute March 31 2 024 12:23pm Dehydration acute March 12:23pm Hypertension acute March 12:23pm 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 acute March 31 2 024 12:23pm [facility] Work Phone: 1(577) 517-626310-30-2024 Evaluation note* Diagnosis Onset Date Resolution Status Admit Date Chronic back pain greater th an 3 months duration acute March 12, 2024 9:43am CKD (chronic kidney disease) , stage III acute March 12 9:43am Hypertension acute February 9:43am 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 acute March 12 9:43am Acute urinary retention acute N ovember 2023 12:23pm Chronic back pain greater th an 3 months duration acute March 31, 2024 12:23pm CKD (chronic kidney disease) , stage III acute March 31 2 024 12:23pm Hypertension acute March 12:23pm 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 acute March 31 2 024 12:23pm Acute metabolic encephalopathy resol alecia March 31, 2024 12:23pm Altered mental status resolved Mar 12:23pm Dehydration resolved March 12:23pm Urinary tract infection inactive J anuary 2024 1:03pm [facility] Work Phone: 1(754) 709-809510-28-2024 Miscellaneous Notes* Telephone Encounter - [employer] - 03/10/2024 8:53 AM EDT Patient daughter called in regarding referral to Ophthalmology. Daughter states that Dr Mike Kern is too far for them, but they found another provider, Dr Meza, in [place]. She is asking if referral can be updated then faxed to that office. Patient's daughter also stated that patient was to follow up with Infectious Disease at [facility]. She is asking if we know of a provider in [place] or [facility]. * Telephone Encounter - Aga Mendoza MD - 03/10/2024 8:53 AM EDT New referral order placed to preferred ophthalmology provider. As for the infectious diseases referral, she can go wherever is closest if that is preferred. She can call [facility] and ask who they recommend. They had seen her and were supposed to schedule her appointment. So she should contact them. Thank you. * Telephone Encounter - Lisa Esparza - 03/10/2024 8:53 AM EDT I have attempted to contact this patient by phone with the following results: left message regarding Dr. Mendoza's below message. [facility] Telephone encounter Note* Telephone Encounter - [employer] - 03/10/2024 8:53 AM EDT Patient daughter called in regarding referral to Ophthalmology. Daughter states that Dr Mike Kern is too far for them, but they found another provider, Dr Meza, in [place]. She is asking if referral can be updated then faxed to that office. Patient's daughter also stated that patient was to follow up with Infectious Disease at [facility]. She is asking if we know of a provider in [place] or [facility]. [facility]10-28-2024 Telephone encounter Note* Telephone Encounter - Aga Mendoza MD - 03/10/2024 8:53 AM EDT New referral order placed to preferred ophthalmology provider. As for the infectious diseases referral, she can go wherever is closest if that is preferred. She can call [facility] and ask who they recommend. They had seen her and were supposed to schedule her appointment. So she should contact them. Thank you. [facility]-28-20[facility] Telephone encounter Note* Telephone Encounter - Lisa Esparza - 03/10/2024 8:53 AM EDT I have attempted to contact this patient by phone with the following results: left message regarding Dr. Mendoza's below message. [facility]10-25-2024 Progress note* Discharge Planning Note - Gabriella Staples - 03/07/2024 3:16 PM EDT DISCHARGE PLANNING NOTE CRF to [facility] in [place], [place] (P# ; F# ) [facility]10-25-2024 Miscellaneous Notes* Discharge Planning Note - Gabriella Staples - 03/07/2024 3:16 PM EDT DISCHARGE PLANNING NOTE CRF to [facility] in [place], [place] (P# ; F# ) * Discharge Planning Note - Lisa Guzman RN - 03/07/2024 3:07 PM EDT DISCHARGE PLANNING NOTE Follow-up Discharge Planning Progress Note Per RN during discharge transition rounds, barriers to discharge are: none. Discharge Plan: Home with [facility] health care and [facility]. [facility] confirmed start of care today at 6 pm. Son Elijah updated, bedside nurse updated. [facility] tasked to send CRF to home care [...] Description: INTERVENTIONS: 1. Encourage patient or legal provider relations representative to report early pain and ask [...] per policy 9. Teach patient or legal provider relations representative interventions for comforting Outcome: Progressing Note: [...] at the bedside 7. Instruct patient/ patient provider relations representative about use of safety devices 8. Include patient/ patient provider relations representative in decisions related to safety Outcome: [...] hygiene technique 7. Identify and instruct patient/patient provider relations representative in use of appropriate isolation precautionsfor identified infection/symptoms 8. Provide and discuss with patient/patient provider relations representative on educational MDRO sheet 9. Encourage and monitor nutritional status daily and consult gas inspector if indicated 10. Implement neutropenic guidelines as [...] to monitor Problem: Knowledge Deficit Goal: Patient/patient provider relations representative demonstrates understanding of disease process, treatment [...] Score of =/> 25 or indicated by [facility] Assessment Goal: Patient should be free from fall Description: Interventions: 1. [place] to environment 2. Hourly rounds addressing the [...] non-skid footwear 11. Teach patient and patient provider relations representative to maintain environment for safety and [...] (cane, walker) within reach 19. Request patient provider relations representative bring adaptive equipment/mobility aids from home or obtain and provide as needed 20. Consult pharmacy regarding effects of med's affecting mobility, cognition, and alternatives 21. Obtain physician order for PT if risk factors associated with mobility are present 22. Obtain physician order for OT as appropriate 23. Utilize diversional activities 24. Educate patient and patient provider relations representative how to maintain a safe environment during visitationtimes (notify nurse prior to leaving bedside) 25. Consider appropriateness of medical or non-medical social worker 26. Set up voiding schedule as appropriate [...] on patient's door 9. Provide patient/ patient provider relations representative with isolation education. Outcome: Progressing Note: Evaluation of progress towards goal: proper hand hygiene is performed when entering and exiting the room and proper PPE is worn during procedures * PT/OT/TOP CASE ASSEMBLER - JUDI Amaya/Kosta - 03/07/2024 9:55 AM EDT Occupational Therapy Treatment Discharge Recommendations OT Recommendations : Residential Facility 6 Clicks: Daily Activity Putting on [...] see per RN Equipment: gait belt, RW Telemetry/Test Rack Operator: No Other: Fall risk, LBP Pain Assessment [...] Outcome 03/07/2453 JUDI Amaya/Kosta Progressing 03/05/24 1602 Jena Mehta OTR/L Progressing Goal Note filed on 03/07/24 09 by JUDI Amaya/Kosta Evaluation of progress towards goal: Problem: Bed Mobility Dates: Start: 03/04/24 Disciplines: OT Goal: Patient will perform bed mobility with Modified [place] Dates: Start: 03/04/24 Expected End: 03/25/24 Description: Goal Description: sup to sit and sit to sup for EOB sitting during functional activity Disciplines: OT Outcomes Date/Time User Outcome 03/07/2453 JUDI Amaya/Kosta Progressing 03/05/24 1602 Jena Mehta OTR/L Progressing [...] Outcome 03/07/2453 JUDI Amaya/Kosta Progressing 03/05/24 1602 Jena Mehta [...] 03/07/24 0953 JUDI Amaya/Kosta Progressing 03/05/24 1602 JENNIFER Carpenter/Kosta [...] Description: Disciplines: OT Outcomes Date/Time User Outcome 03/07/24952 HUGO Amaya Progressing Goal Note filed on 03/07/24 09 by HUGO Amaya Evaluation of progress towards goal: Problem: Transfers Dates: Start: 03/04/24 Disciplines: OT Goal: Patient will perform transfers with Supervision Dates: Start: 03/04/24 Expected End: 03/25/24 Description: Goal Description: Sit to stand, stand to sit transfers with good safety and use of AD PRN Disciplines: OT Outcomes Date/Time User Outcome 03/07/24952 HUGO Amaya Progressing 03/05/24 1602 JENNIFER Carpenter/Kosta Progressing Goal Note filed on 03/07/24952 by HUGO Amaya Evaluation of progress towards goal: Occupational Therapy Care Plan (Resolved) There are no resolved problems. Principal Problem: Viral meningitis Active Problems: Seizure ([facility] Cosigned by JENNIFER Vazquez/Kosta at 03/07/2024 2:40 PM EDT Associated attestation - Kelsi Ma OTR/L - 03/07/2024 2:40 PM EDT I have reviewed and agree with this note and education documentation for this visit. * PT/OT/TOP CASE ASSEMBLER - Fabiola Carter PTA - 03/07/2024 9:50 AM EDT Physical Therapy Treatment Discharge Recommendations PT Recommendations: Residential Facility SNF/ECF Comments: Pt would benefit from [...] Equipment: Gait belt, RW, chair alarm/bed alarm Telemetry/Test Rack Operator: No Oxygen Used: room air Other: Fall [...] Date/Time User Outcome 03/07/24 0941 Fabiola Carter, COURT SPECIALIST Progressing 03/05/241535 Winnie Handy PTA Progressing Goal Note filed on 03/05/241535 by Winnie Handy PTA Evaluation of progress towards goal: Problem: Bed Mobility Dates: Start: 03/04/24 Disciplines: PT Goal: Patient will perform bed mobility with Modified [place] Dates: Start: 03/04/24 Expected End: 03/18/24 Description: Goal Description: Disciplines: PT Outcomes Date/Time User Outcome 03/07/24 0941 Fabiola Carter, COURT SPECIALIST Progressing 03/05/24 153 Winnie Handy PTA Progressing Goal Note filed on 03/05/24 153 by Winnie Handy PTA Evaluation of progress towards goal: Problem: Gait Dates: Start: 03/04/24 Disciplines: PT Goal: Patient will perform gait with Modified [place] Dates: Start: 03/04/24 Expected End: 03/18/24 Description: With__RW__,__>50__feet Goal Description: Disciplines: PT Outcomes Date/Time User Outcome 03/07/24 0941 Fabiola Carter PTA Progressing 03/05/241535 Winnie aHndy PTA Progressing Goal Note filed on 03/05/241535 [...] Goal: Patient will perform transfers with Modified [place] Dates: Start: 03/04/24 Expected End: 03/18/24 Description: [...] Principal Problem: Viral meningitis Active Problems: Seizure ([facility]) Cosigned by Gissell Friend PT at 03/07/2024 [...] Description: INTERVENTIONS: 1. Encourage patient or legal provider relations representative to report early pain and ask [...] per policy 9. Teach patient or legal provider relations representative interventions for comforting Outcome: Progressing Note: [...] at the bedside 7. Instruct patient/ patient provider relations representative about use of safety devices 8. Include patient/ patient provider relations representative in decisions related to safety Outcome: [...] hygiene technique 7. Identify and instruct patient/patient provider relations representative in use of appropriate isolation precautionsfor identified infection/symptoms 8. Provide and discuss with patient/patient provider relations representative on educational MDRO sheet 9. Encourage and monitor nutritional status daily and consult gas inspector if indicated 10. Implement neutropenic guidelines as [...] infection prevention. Problem: Knowledge Deficit Goal: Patient/patient provider relations representative demonstrates understanding of disease process, treatment [...] EDT DISCHARGE PLANNING NOTE Referral sent to [facility] [place], [place] [facility] - (P# ; F# ) * Plan of Care - Carolin Jerome RN - 03/06/2024 12:46 PM EDT Problem: Pain Goal: Patient goal is pain score less than 4, able to rest, and participant in treatment plan as appropriate Description: INTERVENTIONS: 1. Encourage patient or legal provider relations representative to report early pain and ask [...] per policy 9. Teach patient or legal provider relations representative interventions for comforting Outcome: Progressing Note: [...] at the bedside 7. Instruct patient/ patient provider relations representative about use of safety devices 8. Include patient/ patient provider relations representative in decisions related to safety Outcome: [...] hygiene technique 7. Identify and instruct patient/patient provider relations representative in use of appropriate isolation precautionsfor identified infection/symptoms 8. Provide and discuss with patient/patient provider relations representative on educational MDRO sheet 9. Encourage and monitor nutritional status daily and consult gas inspector if indicated 10. Implement neutropenic guidelines as needed 11. Review exposure to history of communicable disease and recent travel history on admission 12. Encourage annual influenza vaccine 13. Encourage pneumonia vaccine Outcome: Progressing Note: Evaluation of progress towards goal: Pt afebrile, vss, will continue to monitor during shift. Problem: Knowledge Deficit Goal: Patient/patient provider relations representative demonstrates understanding of disease process, treatment [...] Score of =/> 25 or indicated by [facility] Assessment Goal: Patient should be free from fall Description: Interventions: 1. [place] to environment 2. Hourly rounds addressing the [...] non-skid footwear 11. Teach patient and patient provider relations representative to maintain environment for safety and [...] (cane, walker) within reach 19. Request patient provider relations representative bring adaptive equipment/mobility aids from home or obtain and provide as needed 20. Consult pharmacy regarding effects of med's affecting mobility, cognition, and alternatives 21. Obtain physician order for PT if risk factors associated with mobility are present 22. Obtain physician order for OT as appropriate 23. Utilize diversional activities 24. Educate patient and patient provider relations representative how to maintain a safe environment during visitationtimes (notify nurse prior to leaving bedside) 25. Consider appropriateness of medical or non-medical social worker 26. Set up voiding schedule as appropriate [...] infusion forIV antibiotics at home. Discharge Plan: [facility] can clinically accept, verifying patient benefits. Tentative plan. Patient will discharge tomorrow, with plan for her second dose- Around 5pm or so parmjit started at home. Son available to pick her up after 4 tomorrow and plan for him and sister to meet with home care for teaching. [facility]wait [facility] on verification and time frame for IV antibiotics to be delivered. Prescription and lab orders faxed to [facility]. Care Navigation will continue to follow for any discharge needs. - Lisa Guzman RN 03/06/24 11:17 AM * Discharge Planning Note - Neli Rosa - 03/06/2024 8:38 AM EDT DISCHARGE PLANNING NOTE Referral sent to [facility] [place], [place] (P# [phone] ; F# [phone]) * Plan of Care - Tashia Redding RN - 03/05/2024 10:27 PM EDT Problem: Pain Goal: Patient goal is pain score less than 4, able to rest, and participant in treatment plan as appropriate Description: INTERVENTIONS: 1. Encourage patient or legal provider relations representative to report early pain and ask [...] per policy 9. Teach patient or legal provider relations representative interventions for comforting Outcome: Progressing Note: [...] at the bedside 7. Instruct patient/ patient provider relations representative about use of safety devices 8. Include patient/ patient provider relations representative in decisions related to safety Outcome: [...] hygiene technique 7. Identify and instruct patient/patient provider relations representative in use of appropriate isolation precautionsfor identified infection/symptoms 8. Provide and discuss with patient/patient provider relations representative on educational MDRO sheet 9. Encourage and monitor nutritional status daily and consult gas inspector if indicated 10. Implement neutropenic guidelines as [...] questions answered. Problem: Knowledge Deficit Goal: Patient/patient provider relations representative demonstrates understanding of disease process, treatment [...] be free from fall Description: Interventions: 1. [place] to environment 2. Hourly rounds addressing the [...] non-skid footwear 11. Teach patient and patient provider relations representative to maintain environment for safety and [...] (cane, walker) within reach 19. Request patient provider relations representative bring adaptive equipment/mobility aids from home or obtain and provide as needed 20. Consult pharmacy regarding effects of med's affecting mobility, cognition, and alternatives 21. Obtain physician order for PT if risk factors associated with mobility are present 22. Obtain physician order for OT as appropriate 23. Utilize diversional activities 24. Educate patient and patient provider relations representative how to maintain a safe environment during visitationtimes (notify nurse prior to leaving bedside) 25. Consider appropriateness of medical or non-medical social worker 26. Set up voiding schedule as appropriate (every 2 hours) Outcome: Progressing Note: Evaluation of progress towards goal: Pt. Remains fall free this hospitalization. Safety precautions maintained. * PT/OT/TOP CASE ASSEMBLER - JENNIFER Carpenter/Kosta - 03/05/2024 4:03 PM EDT Occupational Therapy Treatment Discharge Recommendations OT Recommendations : Residential Facility 6 Clicks: Daily Activity Putting on [...] Equipment: Gait belt, RW, chair alarm/bed alarm Telemetry/Test Rack Operator: No Oxygen Used: Room air Other: Fall [...] Patient will perform bed mobility with Modified [place] Dates: Start: 03/04/24 Expected End: 03/25/24 Description: [...] OT Outcomes Date/Time User Outcome 03/05/24 160 ROXANNE Carpenter Progressing Goal Note filed on 03/05/24 160 by ROXANNE Carpenter Evaluation of progress towards goal: Problem: Strength Dates: Start: 03/04/24 Disciplines: OT Goal: Improve strength Dates: Start: 03/04/24 Expected End: 03/25/24 Description: Pt will demo good understanding of BUE HEP for increased strength to 5/5 during ADLs. Disciplines: OT Goal Note filed on 03/05/24 160 by ROXANNE Carpenter Evaluation of progress towards goal: Problem: Toilet [...] OT Outcomes Date/Time User Outcome 03/05/24 160 ROXANNE Carpenter Progressing Goal Note filed on 03/05/24 160 by ROXANNE Carpenter Evaluation of progress towards goal: Occupational Therapy Care Plan (Resolved) There are no resolved problems. Principal Problem: Viral meningitis Active Problems: Seizure ([facility]) * PT/OT/TOP CASE ASSEMBLER - Winnie Handy, COURT SPECIALIST - 03/05/2024 3:57 PM EDT Physical Therapy Treatment Discharge Recommendations PT Recommendations: Residential Facility 6 Clicks: Basic Mobility Turning from [...] Patient will perform bed mobility with Modified [place] Dates: Start: 03/04/24 Expected End: 03/18/24 Description: Goal Description: Disciplines: PT Outcomes Date/Time User Outcome 03/05/241535 Winnie Handy PTA Progressing Goal Note filed on 03/05/24 153 by Winnie Handy PTA Evaluation of progress towards goal: Problem: Gait Dates: Start: 03/04/24 Disciplines: PT Goal: Patient will perform gait with Modified [place] Dates: Start: 03/04/24 Expected End: 03/18/24 Description: [...] Goal: Patient will perform transfers with Modified [place] Dates: Start: 03/04/24 Expected End: 03/18/24 Description: Goal Description:Patient to perform mobility with good safety awareness. Disciplines: PT Outcomes Date/Time User Outcome 03/05/241535 Winnie Handy PTA Progressing Goal Note filed on 03/05/241535 by Winnie Handy PTA Evaluation of progress towards goal: Physical Therapy Care Plan (Resolved) There are no resolved problems. Principal Problem: Viral meningitis Active Problems: Seizure ([facility]) Cosigned by Gissell Friend PT at 03/06/2024 1:16 PM EDT Associated attestation - Gissell Friend PT - 03/06/2024 1:16 PM EDT I have reviewed and agree with this note and education documentation for this visit. * Plan of Care - Gyala Mcwilliams RN - 03/05/2024 10:55 AM EDT Problem: Pain Goal: Patient goal is pain score less than 4, able to rest, and participant in treatment plan as appropriate Description: INTERVENTIONS: 1. Encourage patient or legal provider relations representative to report early pain and ask [...] per policy 9. Teach patient or legal provider relations representative interventions for comforting Outcome: Progressing Note: [...] at the bedside 7. Instruct patient/ patient provider relations representative about use of safety devices 8. Include patient/ patient provider relations representative in decisions related to safety Outcome: [...] hygiene technique 7. Identify and instruct patient/patient provider relations representative in use of appropriate isolation precautionsfor identified infection/symptoms 8. Provide and discuss with patient/patient provider relations representative on educational MDRO sheet 9. Encourage and monitor nutritional status daily and consult gas inspector if indicated 10. Implement neutropenic guidelines as [...] to monitor Problem: Knowledge Deficit Goal: Patient/patient provider relations representative demonstrates understanding of disease process, treatment [...] be free from fall Description: Interventions: 1. [place] to environment 2. Hourly rounds addressing the [...] non-skid footwear 11. Teach patient and patient provider relations representative to maintain environment for safety and [...] (cane, walker) within reach 19. Request patient provider relations representative bring adaptive equipment/mobility aids from home or obtain and provide as needed 20. Consult pharmacy regarding effects of med's affecting mobility, cognition, and alternatives 21. Obtain physician order for PT if risk factors associated with mobility are present 22. Obtain physician order for OT as appropriate 23. Utilize diversional activities 24. Educate patient and patient provider relations representative how to maintain a safe environment during visitationtimes (notify nurse prior to leaving bedside) 25. Consider appropriateness of medical or non-medical social worker 26. Set up voiding schedule as appropriate [...] on patient's door 9. Provide patient/ patient provider relations representative with isolation education. Outcome: Progressing Note: Evaluation of progress towards goal: patient currently on IV antibiotics for positive LP result * Plan of Care - Tashia Redding RN - 03/04/2024 11:33 PM EDT Problem: Pain Goal: Patient goal is pain score less than 4, able to rest, and participant in treatment plan as appropriate Description: INTERVENTIONS: 1. Encourage patient or legal provider relations representative to report early pain and ask [...] per policy 9. Teach patient or legal provider relations representative interventions for comforting Outcome: Progressing Note: [...] at the bedside 7. Instruct patient/ patient provider relations representative about use of safety devices 8. Include patient/ patient provider relations representative in decisions related to safety Outcome: Progressing Note: Evaluation of progress towards goal: Pt. Remains injury free this hospitalization, safety precautions maintained. Problem: Moderate - High Risk Fall Score Description: [place] Fall Score of =/> 25 or indicated by [facility] Assessment Goal: Patient should be free from fall Description: Interventions: 1. [place] to environment 2. Hourly rounds addressing the [...] non-skid footwear 11. Teach patient and patient provider relations representative to maintain environment for safety and [...] (cane, walker) within reach 19. Request patient provider relations representative bring adaptive equipment/mobility aids from home or obtain and provide as needed 20. Consult pharmacy regarding effects of med's affecting mobility, cognition, and alternatives 21. Obtain physician order for PT if risk factors associated with mobility are present 22. Obtain physician order for OT as appropriate 23. Utilize diversional activities 24. Educate patient and patient provider relations representative how to maintain a safe environment during visitationtimes (notify nurse prior to leaving bedside) 25. Consider appropriateness of medical or non-medical social worker 26. Set up voiding schedule as appropriate (every 2 hours) Outcome: Progressing Note: Evaluation of progress towards goal: Pt. Remains fall free this hospitalization. Safety precautions maintained. * Discharge Planning Note - Danyelle Frye - 03/04/2024 4:53 PM EDT DISCHARGE PLANNING NOTE Referral sent to. [facility] [place], [place] (P# ; F# ) * Discharge Planning Note - Lisa Guzman RN - 03/04/2024 4:20 PM EDT DISCHARGE PLANNING NOTE Follow-up Discharge Planning Progress Note Per RN during discharge transition rounds, barriers to discharge are: Hypertensive today, CXR, cultures pending. Discharge Plan: Home with home care. Therapy recommending Residential Facility. Patient declined. Patient agree to home care. [facility]. [employer] informed will have referral sent, however need two additional choices. Will follow up tomorrow for additional choices. Care Navigation will continue to follow for any discharge needs. - Lisa Guzman RN 03/04/24 4:26 PM * PT/OT/TOP CASE ASSEMBLER - ROXANNE Raymundo - 03/04/2024 1:18 PM EDT Occupational Therapy Evaluation Discharge Recommendations OT Recommendations : Residential Facility SNF/ECF Comments: SNF recommended to improve [...] Precautions Activity: early mobility pass, ok per RN Tiffanie for OT evaluation, escalated evaluation for discharge stating that supine duration s/p lumbar puncture was complete and pt ok for OOB activity. 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 SPECIALIST Prior Function Lives With: Alone Receives Help [...] Patient will perform bed mobility with Modified [place] Dates: Start: 03/04/24 Expected End: 03/25/24 Description: [...] Principal Problem: Viral meningitis Active Problems: Seizure ([facility]) * PT/OT/TOP CASE ASSEMBLER - Nicholas Lang, PT - 03/04/2024 1:01 PM EDT Physical Therapy Evaluation Discharge Recommendations PT Recommendations: Residential Facility SNF/ECF Comments: Pt would benefit from [...] OK for PT evaluation per RN Tiffanie, jone evaluation for discharge stating that supineduration s/p lumbar puncture was clear and patient okay for OOB activity. Equipment: RW, gait belt Telemetry/Test Rack Operator: No Oxygen Used: room air Other: Fall [...] Patient will perform bed mobility with Modified [place] Dates: Start: 03/04/24 Expected End: 03/18/24 Description: Goal Description: Disciplines: PT Problem: Gait Dates: Start: 03/04/24 Disciplines: PT Goal: Patient will perform gait with Modified [place] Dates: Start: 03/04/24 Expected End: 03/18/24 Description: [...] Goal: Patient will perform transfers with Modified [place] Dates: Start: 03/04/24 Expected End: 03/18/24 Description: Goal Description:Patient to perform mobility with good safety awareness. Disciplines: PT Physical Therapy Care Plan (Resolved) There are no resolved problems. Principal Problem: Viral meningitis Active Problems: Seizure ([facility]) * Perioperative Nursing Note - Marlee Gallegos RN - 03/04/2024 9:49 AM EDT Report called to floor RN. * Perioperative Nursing Note - Marlee Gallegos RN - 03/04/2024 9:45 AM EDT Pt received Post-Op, POC discussed. * PT/OT/TOP CASE ASSEMBLER - Nicholas Lang PT - 03/04/2024 9:03 AM EDT Physical Therapy CANCEL - Deferred (Pt undergoing LP in IR at this time) * Perioperative Nursing Note - Marlee Gallegos RN - 03/04/2024 8:31 AM EDT Recieved to IVRR, POC discussed. * PT/OT/TOP CASE ASSEMBLER - ROXANNE Raymundo - 03/04/2024 8:05 AM EDT Occupational Therapy (P) CANCEL - Deferred (Pt going down for LP by IR) * Plan of Care - Tiffanie Smith RN - 03/04/2024 7:47 AM EDT Problem: Pain Goal: Patient goal is pain score less than 4, able to rest, and participant in treatment plan as appropriate Description: INTERVENTIONS: 1. Encourage patient or legal provider relations representative to report early pain and ask [...] per policy 9. Teach patient or legal provider relations representative interventions for comforting Outcome: Progressing Note: Evaluation of progress towards goal: [employer] assessed pt pain in the beginning and throughout shift. Pt stated a tolerable pain goal was zero. [employer] B[employer] medicated pt pain per order. Will continue [...] at the bedside 7. Instruct patient/ patient provider relations representative about use of safety devices 8. Include patient/ patient provider relations representative in decisions related to safety Outcome: [...] hygiene technique 7. Identify and instruct patient/patient provider relations representative in use of appropriate isolation precautionsfor identified infection/symptoms 8. Provide and discuss with patient/patient provider relations representative on educational MDRO sheet 9. Encourage and monitor nutritional status daily and consult gas inspector if indicated 10. Implement neutropenic guidelines as needed 11. Review exposure to history of communicable disease and recent travel history on admission 12. Encourage annual influenza vaccine 13. Encourage pneumonia vaccine Outcome: Progressing Note: Evaluation of progress towards goal: [employer] assessed pt risk for infection in the beginning and throughout shift. Pt remains afebrile. Will continue to monitor. Problem: Knowledge Deficit Goal: Patient/patient provider relations representative demonstrates understanding of disease process, treatment plan,medications, and discharge instructions Description: INTERVENTIONS 1. Complete learning assessment and assess knowledge base 2. Provide teaching at level of understanding 3. Provide teaching via preferred learning method(s) Outcome: Progressing Note: Evaluation of progress towards goal: [employer] Biller educated pt on admission disease, medications, treatment, and discharge planning. Will continue to monitor. Problem: Moderate - High Risk Fall Score Description: [place] Fall Score of =/> 25 or indicated by [facility] Re[facility] Assessment Goal: Patient should be free from fall Description: Interventions: 1. [place] to environment 2. Hourly rounds addressing the [...] non-skid footwear 11. Teach patient and patient provider relations representative to maintain environment for safety and [...] (cane, walker) within reach 19. Request patient provider relations representative bring adaptive equipment/mobility aids from home or obtain and provide as needed 20. Consult pharmacy regarding effects of med's affecting mobility, cognition, and alternatives 21. Obtain physician order for PT if risk factors associated with mobility are present 22. Obtain physician order for OT as appropriate 23. Utilize diversional activities 24. Educate patient and patient provider relations representative how to maintain a safe environment during visitationtimes (notify nurse prior to leaving bedside) 25. Consider appropriateness of medical or non-medical social worker 26. Set up voiding schedule as appropriate (every 2 hours) Outcome: Progressing Note: Evaluation of progress towards goal: [employer] assessed pt fall precautions in the beginning [...] at the bedside 7. Instruct patient/ patient provider relations representative about use of safety devices 8. Include patient/ patient provider relations representative in decisions related to safety Outcome: [...] hygiene technique 7. Identify and instruct patient/patient provider relations representative in use of appropriate isolation precautionsfor identified infection/symptoms 8. Provide and discuss with patient/patient provider relations representative on educational MDRO sheet 9. Encourage and monitor nutritional status daily and consult gas inspector if indicated 10. Implement neutropenic guidelines as [...] Description: INTERVENTIONS: 1. Encourage patient or legal provider relations representative to report early pain and ask [...] per policy 9. Teach patient or legal provider relations representative interventions for comforting Note: Evaluation of [...] Description: INTERVENTIONS: 1. Encourage patient or legal provider relations representative to report early pain and ask [...] per policy 9. Teach patient or legal provider relations representative interventions for comforting Outcome: Progressing Note: Evaluation of progress towards goal: Encourage patient or legal provider relations representative to report early pain and ask [...] at the bedside 7. Instruct patient/ patient provider relations representative about use of safety devices 8. Include patient/ patient provider relations representative in decisions related to safety Outcome: [...] hygiene technique 7. Identify and instruct patient/patient provider relations representative in use of appropriate isolation precautionsfor identified infection/symptoms 8. Provide and discuss with patient/patient provider relations representative on educational MDRO sheet 9. Encourage and monitor nutritional status daily and consult gas inspector if indicated 10. Implement neutropenic guidelines as [...] and monitor nutritional status daily and consult gas inspector if indicated. Encourage annual influenza vaccine and [...] to perform ADLs. 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 Her son will transport home at discharge. Her PCP is Dr. Jeremiah Reed,will add to [employer]. She denies any financial restraints to meeting [...] Description: INTERVENTIONS: 1. Encourage patient or legal provider relations representative to report early pain and ask [...] per policy 9. Teach patient or legal provider relations representative interventions for comforting Outcome: Progressing Note: [...] at the bedside 7. Instruct patient/ patient provider relations representative about use of safety devices 8. Include patient/ patient provider relations representative in decisions related to safety Outcome: [...] hygiene technique 7. Identify and instruct patient/patient provider relations representative in use of appropriate isolation precautionsfor identified infection/symptoms 8. Provide and discuss with patient/patient provider relations representative on educational MDRO sheet 9. Encourage and monitor nutritional status daily and consult gas inspector if indicated 10. Implement neutropenic guidelines as [...] to monitor Problem: Knowledge Deficit Goal: Patient/patient provider relations representative demonstrates understanding of disease process, treatment [...] Score of =/> 25 or indicated by [facility] Re[facility] Assessment Goal: Patient should be free from fall Description: Interventions: 1. [place] to environment 2. Hourly rounds addressing the [...] non-skid footwear 11. Teach patient and patient provider relations representative to maintain environment for safety and [...] (cane, walker) within reach 19. Request patient provider relations representative bring adaptive equipment/mobility aids from home or obtain and provide as needed 20. Consult pharmacy regarding effects of med's affecting mobility, cognition, and alternatives 21. Obtain physician order for PT if risk factors associated with mobility are present 22. Obtain physician order for OT as appropriate 23. Utilize diversional activities 24. Educate patient and patient provider relations representative how to maintain a safe environment during visitationtimes (notify nurse prior to leaving bedside) 25. Consider appropriateness of medical or non-medical social worker 26. Set up voiding schedule as appropriate [...] Description: INTERVENTIONS: 1. Encourage patient or legal provider relations representative to report early pain and ask [...] per policy 9. Teach patient or legal provider relations representative interventions for comforting Outcome: Progressing Note: Evaluation of progress towards goal: [employer] assessed pt pain in the beginning and throughout shift. Pt stated a tolerable pain goal was zero. [employer] B[employer] medicated pt pain per order. Will continue [...] at the bedside 7. Instruct patient/ patient provider relations representative about use of safety devices 8. Include patient/ patient provider relations representative in decisions related to safety Outcome: [...] hygiene technique 7. Identify and instruct patient/patient provider relations representative in use of appropriate isolation precautionsfor identified infection/symptoms 8. Provide and discuss with patient/patient provider relations representative on educational MDRO sheet 9. Encourage and monitor nutritional status daily and consult gas inspector if indicated 10. Implement neutropenic guidelines as [...] of infection. Problem: Knowledge Deficit Goal: Patient/patient provider relations representative demonstrates understanding of disease process, treatment [...] Score of =/> 25 or indicated by [facility] Re[facility] Assessment Goal: Patient should be free from fall Description: Interventions: 1. [place] to environment 2. Hourly rounds addressing the [...] non-skid footwear 11. Teach patient and patient provider relations representative to maintain environment for safety and [...] (cane, walker) within reach 19. Request patient provider relations representative bring adaptive equipment/mobility aids from home or obtain and provide as needed 20. Consult pharmacy regarding effects of med's affecting mobility, cognition, and alternatives 21. Obtain physician order for PT if risk factors associated with mobility are present 22. Obtain physician order for OT as appropriate 23. Utilize diversional activities 24. Educate patient and patient provider relations representative how to maintain a safe environment during visitationtimes (notify nurse prior to leaving bedside) 25. Consider appropriateness of medical or non-medical social worker 26. Set up voiding schedule as appropriate [...] Description: INTERVENTIONS: 1. Encourage patient or legal provider relations representative to report early pain and ask [...] per policy 9. Teach patient or legal provider relations representative interventions for comforting Outcome: Progressing Note: [...] at the bedside 7. Instruct patient/ patient provider relations representative about use of safety devices 8. Include patient/ patient provider relations representative in decisions related to safety Outcome: [...] hygiene technique 7. Identify and instruct patient/patient provider relations representative in use of appropriate isolation precautionsfor identified infection/symptoms 8. Provide and discuss with patient/patient provider relations representative on educational MDRO sheet 9. Encourage and monitor nutritional status daily and consult gas inspector if indicated 10. Implement neutropenic guidelines as needed 11. Review exposure to history of communicable disease and recent travel history on admission 12. Encourage annual influenza vaccine 13. Encourage pneumonia vaccine Note: Evaluation of progress towards goal: Patient has remained afebrile. WBC and vital signs monitored. Patient has not shown any additional signs of infection at this time. [facility] Progress [facility]* Discharge Planning Note - Lisa Guzman RN - 03/07/2024 3:07 PM EDT DISCHARGE PLANNING NOTE Follow-up Discharge Planning Progress Note Per RN during discharge transition rounds, barriers to discharge are: none. Discharge Plan: Home with [facility] health care and [facility]. [facility] confirmed start of care today at 6 pm. Son Elijah updated, bedside nurse updated. [facility] tasked to send CRF to home care agency. Care Navigation will continue to follow for any discharge needs. - Lisa Guzman RN 03/07/24 3:09 PM \ Labmeeting [id number] History of Present illness Narrative* Stuart Wade MD - 03/07/2024 12:12 PM EDT Images from the original note were not included. Division of Infectious Diseases - Progress Note [facility] - Academic Team 2 During Business Hours: Please use cookdinner for communication. After Hours: Please call for [...] from last 7 days Lab Units 03/04/2463003/03/2462603/02/24 06 WBC X10E9/L 7.0 8.5 9.3 HEMOGLOBIN g/dL [...] Spinal Fluid culture includes gram stain, CSF [[id number]] Collected: 03/04/24 0930 Specimen: Cerebrospinal Fluid Updated: 03/07/24736 Gram Stain [...] with questions. Stuart Wade MD, MPH, FACP, [facility] From 7AM-7PM: From 7AM-7PM: Please use cookdinner for communication. From 7PM-7AM: Please call for our answering service. * Stuart Wade MD - 03/06/2024 1:35 PM EDT Images from the original note were not included. Division of Infectious Diseases - Progress Note [facility] - Academic Team 2 During Business Hours: Please use cookdinner for communication. After Hours: Please call for [...] Spinal Fluid culture includes gram stain, CSF [[id number]] Collected: 03/04/24929 Specimen: Cerebrospinal Fluid Updated: 03/06/24745 [...] FIDSA From 7AM-7PM: From 7AM-7PM: Please use cookdinner for communication. From 7PM-7AM: Please call for our answering service. * Aga Mendoza MD - 03/06/2024 7:21 AM EDT Images from the original note were not included. [facility] Neurology General Neurology Primary Progress Note Primary Neurology service: [phone] Chief Complaint: confusion Interval History: Aaron Lewis [...] Full Aga Mendoza MD PGY-3 Neurology Resident [facility] 03/06/24 Staffed with: (Dr. Monteiro) This patient is being followed by the Neurology Resident service. Contact attending directly during these hours: Sunday to 7:30-8:30 A.M. to Sunday 12-1:00 p.m. Primary Neurology service: [phone] Consult neurology service: [phone] Resident Stroke Service: [phone] If the patient belongs to the Stroke [...] Division of Infectious Diseases - Progress Note [facility] - Academic Team 2 During Business Hours: Please use cookdinner for communication. After Hours: Please call for [...] from last 7 days Lab Units 03/04/24 0603/03/2462603/02/24 06 WBC X10E9/L 7.0 8.5 9.3 HEMOGLOBIN g/dL [...] Spinal Fluid culture includes gram stain, CSF [[id number]] Collected: 03/04/24929 Specimen: Cerebrospinal Fluid Updated: 03/05/24804 [...] FIDSA From 7AM-7PM: From 7AM-7PM: Please use cookdinner for communication. From 7PM-7AM: Please call for our answering service. * Aga Mendoza MD - 03/05/2024 7:53 AM EDT Images from the original note were not included. [employer] Neurology General Neurology Primary Progress Note Primary Neurology service: [phone] Chief Complaint: confusion Interval History: Aaron Lewis [...] Full Aga Mendoza MD PGY-3 Neurology Resident [facility] 03/05/24 Staffed with: (Dr. Monteiro) This patient is being followed by the Neurology Resident service. Contact attending directly during these hours: Sunday to 7:30-8:30 A.M. to Sunday 12-1:00 p.m. Primary Neurology service: [phone] Consult neurology service: [phone] Resident Stroke Service: [phone] If the patient belongs to the Stroke [...] from the original note were not included. [facility] Neurology General Neurology Primary Progress Note Primary Neurology service: [phone] Chief Complaint: confusion Interval History: Aaron Lewis [...] Full Aga Mendoza MD PGY-3 Neurology Resident [facility] 03/04/24 Staffed with: (Dr. Monteiro) This patient is being followed by the Neurology Resident service. Contact attending directly during these hours: Sunday to 7:30-8:30 A.M. to Sunday 12-1:00 p.m. Primary Neurology service: [phone] Consult neurology service: [phone] Resident Stroke Service: [phone] If the patient belongs to the Stroke [...] from the original note were not included. [facility] Neurology General Neurology Primary Progress Note Primary Neurology service: [phone] Chief Complaint: confusion Interval History: Aaron J Tahira is a 79 y.o. year old female [...] light touch throughout. Cerebellar: Able to do [id number] bilaterally; normal coordination Gait and station: Deferred, refer to PT note Pertinent Labs: UA negative CBC WNL Imaging: CT: no acute findings MRI brain with and without contrast: no acute findings, chronic microvascular changes Other Testing: EEG 10/20: moderate generalized slowing Assessment: Aaron Lewis is [...] Full Aga Mendoza MD PGY-3 Neurology Resident [facility] 03/03/24 Staffed with: (Dr. Monteiro) This patient is being followed by the Neurology Resident service. Contact attending directly during these hours: Sunday to 7:30-8:30 A.M. to Sunday 12-1:00 p.m. Primary Neurology service: [phone] Consult neurology service: [phone] Resident Stroke Service: [phone] If the patient belongs to the Stroke [...] Renay Monteiro MD, PhD * Anna Baldwin, [facility] - 03/02/2024 4:23 AM EDT [facility] Department of Pharmacy Pharmacist to Physician Communication The dose of acyclovir for HSV/VZV infection of [place] IN CHARGE has been changed to 10 mg/kg every 12 hours per the [facility] approved renal dosing guidelines, based on an estimated creatinine clearance is 29.2 mL/min (A) (by C-G formula based on SCr of 1.45 mg/dL (H)). Thank you, Anna Baldwin RPH documented in this encounterMer[facility]10-[facility] Hospital course Narrative* Aga Mendoza MD - 03/07/2024 12:08 PM EDT Inpatient Discharge Summary BRIEF OVERVIEW Admitting Provider: Renay Monteiro MD Discharge Provider: Renay Monteiro MD Primary Care Physician at Discharge: JEREMIAH REED MD [phone] Admission Date: 03/02/2024 Discharge Date: 03/07/24 Primary [...] Your Medications These medications were sent to [id number] - [place], [place] - [address] OF [address], [facility] [address] heparin lock flush (porcine) 10 unit/mL injection heparin lock flush (porcine) injection 100 unit/mL solution sodium chloride injection You can get these medications from any pharmacy Bring a paper prescription for each of these medications acyclovir 50 mg/mL injection Aga Mendoza MD PGY-3 Neurology Resident [facility] Cosigned by Renay Monteiro MD at 03/07/2024 [...] Renay Monteiro MD, PhD documented in this [facility]Mer[facility]10-[facility] Plan of care note * Plan of Care - Gayla Mcwilliams RN - 03/07/2024 11:17 AM EDT Problem: Pain Goal: Patient goal is pain score less than 4, able to rest, and participant in treatment plan as appropriate Description: INTERVENTIONS: 1. Encourage patient or legal provider relations representative to report early pain and ask [...] per policy 9. Teach patient or legal provider relations representative interventions for comforting Outcome: Progressing Note: [...] at the bedside 7. Instruct patient/ patient provider relations representative about use of safety devices 8. Include patient/ patient provider relations representative in decisions related to safety Outcome: [...] hygiene technique 7. Identify and instruct patient/patient provider relations representative in use of appropriate isolation precautionsfor identified infection/symptoms 8. Provide and discuss with patient/patient provider relations representative on educational MDRO sheet 9. Encourage and monitor nutritional status daily and consult gas inspector if indicated 10. Implement neutropenic guidelines as [...] to monitor Problem: Knowledge Deficit Goal: Patient/patient provider relations representative demonstrates understanding of disease process, treatment [...] be free from fall Description: Interventions: 1. [place] to environment 2. Hourly rounds addressing the [...] non-skid footwear 11. Teach patient and patient provider relations representative to maintain environment for safety and [...] (cane, walker) within reach 19. Request patient provider relations representative bring adaptive equipment/mobility aids from home or obtain and provide as needed 20. Consult pharmacy regarding effects of med's affecting mobility, cognition, and alternatives 21. Obtain physician order for PT if risk factors associated with mobility are present 22. Obtain physician order for OT as appropriate 23. Utilize diversional activities 24. Educate patient and patient provider relations representative how to maintain a safe environment during visitationtimes (notify nurse prior to leaving bedside) 25. Consider appropriateness of medical or non-medical social worker 26. Set up voiding schedule as appropriate [...] on patient's door 9. Provide patient/ patient provider relations representative with isolation education. Outcome: Progressing Note: Evaluation of progress towards goal: proper hand hygiene is performed when entering and exiting the room and proper PPE is worn during procedures [facility]10-25-2024 Progress note* PT/OT/TOP CASE ASSEMBLER - JUDI Amaya/Kosta Avitia 03/07/2024 9:55 AM EDT Occupational Therapy Treatment Discharge Recommendations OT Recommendations : Residential Facility 6 Clicks: Daily Activity Putting on [...] see per RN Equipment: gait belt, RW Telemetry/Test Rack Operator: No Other: Fall risk, LBP Pain Assessment [...] Patient will perform bed mobility with Modified [place] Dates: Start: 03/04/24 Expected End: 03/25/24 Description: Goal Description: sup to sit and sit to sup for EOB sitting during functional activity Disciplines: OT Outcomes Date/Time User Outcome 03/07/24 0953 JUDI Amaya/Kosta Progressing 03/05/24 1602 JENNIFER Carpenter/Kosta Progressing Goal Note filed on 03/07/2453 by JUDI Amaya/Kosta Evaluation of progress towards goal: Problem: Functional Mobility Dates: Start: 03/04/24 Disciplines: OT Goal: Patient will perform functional mobility with Supervision Dates: Start: 03/04/24 Expected End: 03/25/24 Description: Goal Description: use of walker and good safety Disciplines: OT Outcomes Date/Time User Outcome 03/07/2453 UHGO Amaya Progressing 03/05/24 1602 Jena Mehta OTR/Kosta Progressing Goal Note filed on 03/07/24 0953 by HUGO Amaya Evaluation of progress towards goal: Problem: Other [...] Amaya Evaluation of progress towards goal: Problem: Standing [...] Amaya Evaluation of progress towards goal: Problem: Strength [...] Principal Problem: Viral meningitis Active Problems: Seizure ([facility]) Cosigned by ROXANNE Vazquez at 03/07/2024 2:40 PM EDT Associated attestation - Kelsi Ma OTR/L - 03/07/2024 2:40 PM EDT I have reviewed and agree with this note and education documentation for this visit. [facility] Progress note* PT/OT/TOP CASE ASSEMBLER - Fabiola Carter PTA - 03/07/2024 9:50 AM EDT Physical Therapy Treatment Discharge Recommendations PT Recommendations: Residential Facility SNF/ECF Comments: Pt would benefit from [...] Equipment: Gait belt, RW, chair alarm/bed alarm Telemetry/Test Rack Operator: No Oxygen Used: room air Other: Fall [...] Date/Time User Outcome 03/07/24 0941 Fabiola Carter, COURT SPECIALIST Progressing 03/05/24 1536 Winnie Handy PTA Progressing Goal Note filed on 03/05/24 153 by Winnie Handy PTA Evaluation of progress towards goal: Problem: Bed Mobility Dates: Start: 03/04/24 Disciplines: PT Goal: Patient will perform bed mobility with Modified [place] Dates: Start: 03/04/24 Expected End: 03/18/24 Description: Goal Description: Disciplines: PT Outcomes Date/Time User Outcome 03/07/[address] SPECIALIST Progressing 03/05/24 1536 Winnie Handy PTA Progressing Goal Note filed on 03/05/24 153 by Winnie Handy PTA Evaluation of progress towards goal: Problem: Gait Dates: Start: 03/04/24 Disciplines: PT Goal: Patient will perform gait with Modified [place] Dates: Start: 03/04/24 Expected End: 03/18/24 Description: With__RW__,__>50__feet Goal Description: Disciplines: PT Outcomes Date/Time User Outcome 03/07/[address] SPECIALIST Progressing 03/05/24 1536 Winnie Handy PTA Progressing Goal Note filed on 03/05/24 153 by Winnie Handy PTA Evaluation of progress towards goal: Problem: Sitting Balance Dates: Start: 03/04/24 Disciplines: PT Goal: Improve balance to good Dates: Start: 03/04/24 Expected End: 03/18/24 Description: Static Dynamic Disciplines: PT Outcomes Date/Time User Outcome 03/07/[address] SPECIALIST Progressing 03/05/24 153 Winnie Handy PTA Progressing Goal Note filed on 03/05/24 153 by Winnie Handy PTA Evaluation of progress towards goal: Problem: Standing Balance Dates: Start: 03/04/24 Disciplines: PT Goal: Improve balance to good Dates: Start: 03/04/24 Expected End: 03/18/24 Description: With bilat UE support Disciplines: PT Outcomes Date/Time User Outcome 03/07/[address] SPECIALIST Progressing 03/05/24 153 Winnie Handy PTA Progressing Goal Note filed on 03/05/24 153 by Winnie Handy PTA Evaluation of progress towards goal: Problem: Strength Dates: Start: 03/04/24 Disciplines: PT Goal: Improve strength Dates: Start: 03/04/24 Expected End: 03/18/24 Description: Of extremity/ location: To facilitate: Disciplines: PT Outcomes Date/Time User Outcome 03/05/24 153 Winnie Handy PTA Progressing Goal Note filed on 03/05/24 153 by Winnie Handy PTA Evaluation of progress towards goal: Problem: Transfers Dates: Start: 03/04/24 Disciplines: PT Goal: Patient will perform transfers with Modified [place] Dates: Start: 03/04/24 Expected End: 03/18/24 Description: [...] Principal Problem: Viral meningitis Active Problems: Seizure ([facility]) Cosigned by Gissell Friend PT at 03/07/2024 11:28 AM EDT Associated attestation - Gissell Friend PT - 03/07/2024 11:28 AM EDT I have reviewed and agree with this note and education documentation for this visit. [facility]10-25-2024 Plan of care note* Plan of Care - Fannie Rooney RN - 03/07/2024 3:23 AM EDT Problem: Pain Goal: Patient goal is pain score less than 4, able to rest, and participant in treatment plan as appropriate Description: INTERVENTIONS: 1. Encourage patient or legal provider relations representative to report early pain and ask [...] per policy 9. Teach patient or legal provider relations representative interventions for comforting Outcome: Progressing Note: [...] at the bedside 7. Instruct patient/ patient provider relations representative about use of safety devices 8. Include patient/ patient provider relations representative in decisions related to safety Outcome: [...] hygiene technique 7. Identify and instruct patient/patient provider relations representative in use of appropriate isolation precautionsfor identified infection/symptoms 8. Provide and discuss with patient/patient provider relations representative on educational MDRO sheet 9. Encourage and monitor nutritional status daily and consult gas inspector if indicated 10. Implement neutropenic guidelines as [...] infection prevention. Problem: Knowledge Deficit Goal: Patient/patient provider relations representative demonstrates understanding of disease process, treatment [...] with home health care for antibiotic infusions. [facility]10-24-2024 Progress note* Discharge Planning Note - Radha Mejias - 03/06/2024 3:52 PM EDT DISCHARGE PLANNING NOTE Referral sent to [facility]- [place], [place] [facility] - (P# ; F# ) [facility]10-24-2024 Plan of care note* Plan of Care - Carolin Jerome RN - 03/06/2024 12:46 PM EDT Problem: Pain Goal: Patient goal is pain score less than 4, able to rest, and participant in treatment plan as appropriate Description: INTERVENTIONS: 1. Encourage patient or legal provider relations representative to report early pain and ask [...] per policy 9. Teach patient or legal provider relations representative interventions for comforting Outcome: Progressing Note: [...] at the bedside 7. Instruct patient/ patient provider relations representative about use of safety devices 8. Include patient/ patient provider relations representative in decisions related to safety Outcome: [...] hygiene technique 7. Identify and instruct patient/patient provider relations representative in use of appropriate isolation precautionsfor identified infection/symptoms 8. Provide and discuss with patient/patient provider relations representative on educational MDRO sheet 9. Encourage and monitor nutritional status daily and consult gas inspector if indicated 10. Implement neutropenic guidelines as needed 11. Review exposure to history of communicable disease and recent travel history on admission 12. Encourage annual influenza vaccine 13. Encourage pneumonia vaccine Outcome: Progressing Note: Evaluation of progress towards goal: Pt afebrile, vss, will continue to monitor during shift. Problem: Knowledge Deficit Goal: Patient/patient provider relations representative demonstrates understanding of disease process, treatment [...] be free from fall Description: Interventions: 1. [place] to environment 2. Hourly rounds addressing the [...] non-skid footwear 11. Teach patient and patient provider relations representative to maintain environment for safety and [...] (cane, walker) within reach 19. Request patient provider relations representative bring adaptive equipment/mobility aids from home or obtain and provide as needed 20. Consult pharmacy regarding effects of med's affecting mobility, cognition, and alternatives 21. Obtain physician order for PT if risk factors associated with mobility are present 22. Obtain physician order for OT as appropriate 23. Utilize diversional activities 24. Educate patient and patient provider relations representative how to maintain a safe environment during visitationtimes (notify nurse prior to leaving bedside) 25. Consider appropriateness of medical or non-medical social worker 26. Set up voiding schedule as appropriate [...] progress towards goal: output monitored during shift. [facility] Progress [facility]* Discharge Planning Note - Lisa Guzman RN - 03/06/2024 11:10 AM EDT DISCHARGE PLANNING NOTE Follow-up Discharge Planning Progress Note Per RN during discharge transition rounds, barriers to discharge are: Home care and IV infusion forIV antibiotics at home. Discharge Plan: [facility] can clinically accept, verifying patient benefits. Tentative plan. Patient will discharge tomorrow, with plan for her second dose- Around 5pm or so parmjit started at home. Son available to pick her up after 4 tomorrow and plan for him and sister to meet with home care for teaching. Await [facility] on verification and time frame for IV antibiotics to be delivered. Prescription and lab orders faxed to [facility] pharmacy. Care Navigation will continue to follow for any discharge needs. - Lisa Guzman RN 03/06/24 11:17 AM [facility] Interview Rocket [id number] Progress note* Discharge Planning Note - Neli Rosa - 03/06/2024 8:38 AM EDT DISCHARGE PLANNING NOTE Referral sent to [facility] [place] (P# [phone] ; F# [phone]) [facility] Interview Rocket [id number] Plan of care note* Plan of Care - Tashia Redding RN - 03/05/2024 10:27 PM EDT Problem: Pain Goal: Patient goal is pain score less than 4, able to rest, and participant in treatment plan as appropriate Description: INTERVENTIONS: 1. Encourage patient or legal provider relations representative to report early pain and ask [...] per policy 9. Teach patient or legal provider relations representative interventions for comforting Outcome: Progressing Note: [...] at the bedside 7. Instruct patient/ patient provider relations representative about use of safety devices 8. Include patient/ patient provider relations representative in decisions related to safety Outcome: [...] hygiene technique 7. Identify and instruct patient/patient provider relations representative in use of appropriate isolation precautionsfor identified infection/symptoms 8. Provide and discuss with patient/patient provider relations representative on educational MDRO sheet 9. Encourage and monitor nutritional status daily and consult gas inspector if indicated 10. Implement neutropenic guidelines as [...] questions answered. Problem: Knowledge Deficit Goal: Patient/patient provider relations representative demonstrates understanding of disease process, treatment [...] Score of =/> 25 or indicated by [facility] Assessment Goal: Patient should be free from fall Description: Interventions: 1. [place] to environment 2. Hourly rounds addressing the [...] non-skid footwear 11. Teach patient and patient provider relations representative to maintain environment for safety and [...] (cane, walker) within reach 19. Request patient provider relations representative bring adaptive equipment/mobility aids from home or obtain and provide as needed 20. Consult pharmacy regarding effects of med's affecting mobility, cognition, and alternatives 21. Obtain physician order for PT if risk factors associated with mobility are present 22. Obtain physician order for OT as appropriate 23. Utilize diversional activities 24. Educate patient and patient provider relations representative how to maintain a safe environment during visitationtimes (notify nurse prior to leaving bedside) 25. Consider appropriateness of medical or non-medical social worker 26. Set up voiding schedule as appropriate (every 2 hours) Outcome: Progressing Note: Evaluation of progress towards goal: Pt. Remains fall free this hospitalization. Safety precautions maintained. [facility]10-23-2024 Progress note* PT/OT/TOP CASE ASSEMBLER - JENNIFER Carpenter/Kosta - 03/05/2024 4:03 PM EDT Occupational Therapy Treatment Discharge Recommendations OT Recommendations : Residential Facility 6 Clicks: Daily Activity Putting on [...] Equipment: Gait belt, RW, chair alarm/bed alarm Telemetry/Test Rack Operator: No Oxygen Used: Room air Other: Fall [...] OT Outcomes Date/Time User Outcome 03/05/24 1602 JENNIFRE Carpenter/Kosta Progressing Goal Note filed on 03/05/24 160 by JENNIFER Carpenter/Kosta Evaluation of progress towards goal: Problem: Bed Mobility Dates: Start: 03/04/24 Disciplines: OT Goal: Patient will perform bed mobility with Modified [place] Dates: Start: 03/04/24 Expected End: 03/25/24 Description: [...] Carpenter Progressing Goal Note filed on 03/05/24 1602 by ROXANNE Carpenter Evaluation of progress towards goal: Occupational Therapy Care Plan (Resolved) There are no resolved problems. Principal Problem: Viral meningitis Active Problems: Seizure ([facility]) [facility]-23-2024 Progress note* PT/OT/TOP CASE ASSEMBLER - Winnie Handy, COURT SPECIALIST - 03/05/2024 3:57 PM EDT Physical Therapy Treatment Discharge Recommendations PT Recommendations: Residential Facility 6 Clicks: Basic Mobility Turning from [...] 6 Clicks: Basic Mobility Raw Score: 16 [facility] G Code Modifier: CK Therapy Plan Patient [...] Patient will perform bed mobility with Modified [place] Dates: Start: 03/04/24 Expected End: 03/18/24 Description: Goal Description: Disciplines: PT Outcomes Date/Time User Outcome 03/05/241535 Winnie Handy PTA Progressing Goal Note filed on 03/05/24 153 by Winnie Handy PTA Evaluation of progress towards goal: Problem: Gait Dates: Start: 03/04/24 Disciplines: PT Goal: Patient will perform gait with Modified [place] Dates: Start: 03/04/24 Expected End: 03/18/24 Description: [...] Goal: Patient will perform transfers with Modified [place] Dates: Start: 03/04/24 Expected End: 03/18/24 Description: Goal Description:Patient to perform mobility with good safety awareness. Disciplines: PT Outcomes Date/Time User Outcome 03/05/24 153 Winnie Handy PTA Progressing Goal Note filed on 03/05/24 1536 by Winnie Handy PTA Evaluation of progress towards goal: Physical Therapy Care Plan (Resolved) There are no resolved problems. Principal Problem: Viral meningitis Active Problems: Seizure ([facility]) Cosigned by Gissell Friend PT at 03/06/2024 1:16 PM EDT Associated attestation - Gissell Friend PT - 03/06/2024 1:16 PM EDT I have reviewed and agree with this note and education documentation for this visit. [facility]10-23-2024 Hospital Discharge instructions* Discharge Instructions* Aga [...] up with infectious diseases. Recommend seeing an garnett feeder for evaluation of left eye concerning infection [...] For NEW patients, MD will not prescribe residential pain medication. documented in [facility] Plan of care note * Plan of Care - Gayla Mcwilliams RN - 03/05/2024 10:55 AM EDT Problem: Pain Goal: Patient goal is pain score less than 4, able to rest, and participant in treatment plan as appropriate Description: INTERVENTIONS: 1. Encourage patient or legal provider relations representative to report early pain and ask [...] per policy 9. Teach patient or legal provider relations representative interventions for comforting Outcome: Progressing Note: [...] at the bedside 7. Instruct patient/ patient provider relations representative about use of safety devices 8. Include patient/ patient provider relations representative in decisions related to safety Outcome: [...] hygiene technique 7. Identify and instruct patient/patient provider relations representative in use of appropriate isolation precautionsfor identified infection/symptoms 8. Provide and discuss with patient/patient provider relations representative on educational MDRO sheet 9. Encourage and monitor nutritional status daily and consult gas inspector if indicated 10. Implement neutropenic guidelines as [...] to monitor Problem: Knowledge Deficit Goal: Patient/patient provider relations representative demonstrates understanding of disease process, treatment [...] Score of =/> 25 or indicated by [facility] Assessment Goal: Patient should be free from fall Description: Interventions: 1. [place] to environment 2. Hourly rounds addressing the [...] non-skid footwear 11. Teach patient and patient provider relations representative to maintain environment for safety and [...] (cane, walker) within reach 19. Request patient provider relations representative bring adaptive equipment/mobility aids from home or obtain and provide as needed 20. Consult pharmacy regarding effects of med's affecting mobility, cognition, and alternatives 21. Obtain physician order for PT if risk factors associated with mobility are present 22. Obtain physician order for OT as appropriate 23. Utilize diversional activities 24. Educate patient and patient provider relations representative how to maintain a safe environment during visitationtimes (notify nurse prior to leaving bedside) 25. Consider appropriateness of medical or non-medical social worker 26. Set up voiding schedule as appropriate [...] on patient's door 9. Provide patient/ patient provider relations representative with isolation education. Outcome: Progressing Note: Evaluation of progress towards goal: patient currently on IV antibiotics for positive LP result [facility]10-22-2024 Plan of care note* Plan of Care - Tashia Redding RN - 03/04/2024 11:33 PM EDT Problem: Pain Goal: Patient goal is pain score less than 4, able to rest, and participant in treatment plan as appropriate Description: INTERVENTIONS: 1. Encourage patient or legal provider relations representative to report early pain and ask [...] per policy 9. Teach patient or legal provider relations representative interventions for comforting Outcome: Progressing Note: [...] at the bedside 7. Instruct patient/ patient provider relations representative about use of safety devices 8. Include patient/ patient provider relations representative in decisions related to safety Outcome: Progressing Note: Evaluation of progress towards goal: Pt. Remains injury free this hospitalization, safety precautions maintained. Problem: Moderate - High Risk Fall Score Description: [place] Fall Score of =/> 25 or indicated by [facility] Assessment Goal: Patient should be free from fall Description: Interventions: 1. [place] to environment 2. Hourly rounds addressing the [...] non-skid footwear 11. Teach patient and patient provider relations representative to maintain environment for safety and [...] (cane, walker) within reach 19. Request patient provider relations representative bring adaptive equipment/mobility aids from home or obtain and provide as needed 20. Consult pharmacy regarding effects of med's affecting mobility, cognition, and alternatives 21. Obtain physician order for PT if risk factors associated with mobility are present 22. Obtain physician order for OT as appropriate 23. Utilize diversional activities 24. Educate patient and patient provider relations representative how to maintain a safe environment during visitationtimes (notify nurse prior to leaving bedside) 25. Consider appropriateness of medical or non-medical social worker 26. Set up voiding schedule as appropriate (every 2 hours) Outcome: Progressing Note: Evaluation of progress towards goal: Pt. Remains fall free this hospitalization. Safety precautions maintained. [facility] Interview Rocket [id number] Progress note* Discharge Planning Note - Danyelle Frye - 03/04/2024 4:53 PM EDT DISCHARGE PLANNING NOTE Referral sent to. [facility] in [place], [place] (P# ; F# ) [facility] Rocket [id number] Progress note* Discharge Planning Note - Lisa Guzman RN - 03/04/2024 4:20 PM EDT DISCHARGE PLANNING NOTE Follow-up Discharge Planning Progress Note Per RN during discharge transition rounds, barriers to discharge are: Hypertensive today, CXR, cultures pending. Discharge Plan: Home with home care. Therapy recommending Residential Facility. Patient declined. Patient agree to home care. [facility] choices. [employer] informed will have referral sent, however need two additional choices. Will follow up tomorrow for additional choices. Care Navigation will continue to follow for any discharge needs. - Lisa Guzman RN 03/04/24 4:26 PM [facility] [id number] Consult note* Stuart Wade MD - 03/04/2024 2:27 PM EDTAssociated Order(s): IP CONSULT TO INFECTIOUS DISEASES Images from the original note were not included. Division of Infectious Diseases - Initial Consult Note [facility] - Academic Team 2 During Business Hours: Please page or use cookdinner for communication. After Hours: Please call for [...] Mabel X, Kiara N, Alona G, Nolvia Lockhart. Characteristics, management and outcome of Herpes Simplex [...] Spinal Fluid culture includes gram stain, CSF [[id number]] Collected: 03/04/24 0930 Specimen: Cerebrospinal Fluid Updated: 03/04/24 1052 Gram Stain Result WHITE BLOOD CELLS PRESENT NO ORGANISMS SEEN ON CONCENTRATED SMEAR Culture PENDING It is not necessary to call with new culture results. Thank you for allowing us to participate in the care of this patient. Please call with questions. Stuart Wade MD, MPH, FACP, FIDSA From 7AM-7PM: Please page or use cookdinner for communication. From 7PM-7AM: Please call for our answering service. [facility] [id number] Consult note* Stuart Wade MD - 03/04/2024 2:27 PM EDTAssociated Order(s): IP CONSULT TO INFECTIOUS DISEASES Images from the original note were not included. Division of Infectious Diseases - Initial Consult Note [facility] - Academic Team 2 During Business Hours: Please page or use cookdinner for communication. After Hours: Please call for [...] Rico P, Heather CHATO, Samira calderón P, Abglendy S, Taras L, Mabel X, Kiara N, [...] Spinal Fluid culture includes gram stain, CSF [[id number]] Collected: 03/04/24 0930 Specimen: Cerebrospinal Fluid Updated: 03/04/24 1052 Gram Stain Result WHITE BLOOD CELLS PRESENT NO ORGANISMS SEEN ON CONCENTRATED SMEAR Culture PENDING It is not necessary to call with new culture results. Thank you for allowing us to participate in the care of this patient. Please call with questions. Stuart Wade MD, MPH, FACP, FIDSA From 7AM-7PM: Please page or use cookdinner for communication. From 7PM-7AM: Please call for our answering service. documented in this encounterMer[facility]10[facility] Progress note* PT/OT/TOP CASE ASSEMBLER - Amber Mcmahon OTR/L - 03/04/2024 1:18 PM EDT Occupational Therapy Evaluation Discharge Recommendations OT Recommendations : Residential Facility SNF/ECF Comments: SNF recommended to improve [...] for OOB activity. 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 SPECIALIST Prior Function Lives With: Alone Receives Help [...] Patient will perform bed mobility with Modified [place] Dates: Start: 03/04/24 Expected End: 03/25/24 Description: [...] Principal Problem: Viral meningitis Active Problems: Seizure ([facility]) [facility] [employer] Interview Rocket [id number] Progress note* PT/OT/TOP CASE ASSEMBLER - Nicholas Lang, PT - 03/04/2024 1:01 PM EDT Physical Therapy Evaluation Discharge Recommendations PT Recommendations: Residential Facility SNF/ECF Comments: Pt would benefit from [...] Precautions Activity: OK for PT evaluation per jone Moses evaluation for discharge stating that supineduration s/p lumbar puncture was clear and patient okay for OOB activity. Equipment: RW, gait belt Telemetry/Test Rack Operator: No Oxygen Used: room air Other: Fall [...] Patient will perform bed mobility with Modified [place] Dates: Start: 03/04/24 Expected End: 03/18/24 Description: Goal Description: Disciplines: PT Problem: Gait Dates: Start: 03/04/24 Disciplines: PT Goal: Patient will perform gait with Modified [place] Dates: Start: 03/04/24 Expected End: 03/18/24 Description: [...] Goal: Patient will perform transfers with Modified [place] Dates: Start: 03/04/24 Expected End: 03/18/24 Description: Goal Description:Patient to perform mobility with good safety awareness. Disciplines: PT Physical Therapy Care Plan (Resolved) There are no resolved problems. Principal Problem: Viral meningitis Active Problems: Seizure ([facility]) [facility]10-22-2024 Note Pre-procedure diagnosis: See history below Post-procedure diagnosis: Same as above Assistants/resident: See the technologist's notes above Consent/pre-procedure evaluation: See below. [place] protocol timeout verification performed. Estimated blood loss: [...] José Antonio Rain MD on 03/04/2024 10:21 [id number] Nurse Note* Perioperative Nursing Note - Marlee Gallegos RN - 03/04/2024 9:49 AM EDT Report called to floor RN. [facility] [id number] Nurse Note* Perioperative Nursing Note - Marlee Gallegos RN - 03/04/2024 9:45 AM EDT Pt received Post-Op, POC discussed. [facility] [id number] Nurse Note* Scott Kramer - 03/04/2024 9:27 AM EDT Opening pressure 20 15cc of clear colorless fluid removed Closing pressure 4 [facility]10-22-2024 Nurse Note* Scott Kramer - 03/04/2024 9:27 AM EDT Opening pressure 20 15cc of clear colorless fluid removed Closing pressure 4 documented in this encounterMercer County [facility] Hospital10-22-2024 Procedure note* Scott Kramer - 03/04/2024 9:11 AM EDT Site Preparation: Lower back Site Marked: yes Other: Lower back Prepped with: Chloraprep - with dry time of 3 minutes prior to draping the patient and Hibiclens Site Clipped: no Patient Draped: yes [facility]10-22-2024 Procedure note* Scott Kramer - 03/04/2024 9:11 AM EDT Site Preparation: Lower back Site Marked: yes Other: Lower back Prepped with: Chloraprep - with dry time of 3 minutes prior to draping the patient and Hibiclens Site Clipped: no Patient Draped: yes [facility] Progress [facility]* PT/OT/TOP CASE ASSEMBLER - Nicholas Lang PT - 03/04/2024 9:03 AM EDT Physical Therapy CANCEL - Deferred (Pt undergoing LP in IR at this time) [facility] Nurse Note* Perioperative Nursing Note - Marlee Gallegos RN - 03/04/2024 8:31 AM EDT Recieved to IVRR, POC discussed. [facility] Progress note* PT/OT/TOP CASE ASSEMBLER - ROXANNE Raymundo - 03/04/2024 8:05 AM EDT Occupational Therapy (P) CANCEL - Deferred (Pt going down for LP by IR) [facility] Plan of care note* Plan of Care - Tiffanie Smith RN - 03/04/2024 7:47 AM EDT Problem: Pain Goal: Patient goal is pain score less than 4, able to rest, and participant in treatment plan as appropriate Description: INTERVENTIONS: 1. Encourage patient or legal provider relations representative to report early pain and ask [...] per policy 9. Teach patient or legal provider relations representative interventions for comforting Outcome: Progressing Note: Evaluation of progress towards goal: [employer] B[employer] assessed pt pain in the beginning and throughout shift. Pt stated a tolerable pain goal was zero. [employer] Biller medicated pt pain per order. Will continue [...] at the bedside 7. Instruct patient/ patient provider relations representative about use of safety devices 8. Include patient/ patient provider relations representative in decisions related to safety Outcome: [...] hygiene technique 7. Identify and instruct patient/patient provider relations representative in use of appropriate isolation precautionsfor identified infection/symptoms 8. Provide and discuss with patient/patient provider relations representative on educational MDRO sheet 9. Encourage and monitor nutritional status daily and consult gas inspector if indicated 10. Implement neutropenic guidelines as needed 11. Review exposure to history of communicable disease and recent travel history on admission 12. Encourage annual influenza vaccine 13. Encourage pneumonia vaccine Outcome: Progressing Note: Evaluation of progress towards goal: [employer] Biller assessed pt risk for infection in the beginning and throughout shift. Pt remains afebrile. Will continue to monitor. Problem: Knowledge Deficit Goal: Patient/patient provider relations representative demonstrates understanding of disease process, treatment plan,medications, and discharge instructions Description: INTERVENTIONS 1. Complete learning assessment and assess knowledge base 2. Provide teaching at level of understanding 3. Provide teaching via preferred learning method(s) Outcome: Progressing Note: Evaluation of progress towards goal: [employer] Biller educated pt on admission disease, medications, treatment, and discharge planning. Will continue to monitor. Problem: Moderate - High Risk Fall Score Description: [place] Fall Score of =/> 25 or indicated by [facility] Assessment Goal: Patient should be free from fall Description: Interventions: 1. [place] to environment 2. Hourly rounds addressing the [...] non-skid footwear 11. Teach patient and patient provider relations representative to maintain environment for safety and [...] (cane, walker) within reach 19. Request patient provider relations representative bring adaptive equipment/mobility aids from home or obtain and provide as needed 20. Consult pharmacy regarding effects of med's affecting mobility, cognition, and alternatives 21. Obtain physician order for PT if risk factors associated with mobility are present 22. Obtain physician order for OT as appropriate 23. Utilize diversional activities 24. Educate patient and patient provider relations representative how to maintain a safe environment during visitationtimes (notify nurse prior to leaving bedside) 25. Consider appropriateness of medical or non-medical social worker 26. Set up voiding schedule as appropriate (every 2 hours) Outcome: Progressing Note: Evaluation of progress towards goal: [employer] Biller assessed pt fall precautions in the beginning andthroughout shift. Pt room left free of clutter, pt has all belongings and call light within reach. Will continue to monitor. Labmeeting [id number] Progress note* Query Response - Aga Ortiz [...] by: Aga Mendoza MD 03/04/2024 6:57 AM [facility] Plan of care note* Plan of [...] at the bedside 7. Instruct patient/ patient provider relations representative about use of safety devices 8. Include patient/ patient provider relations representative in decisions related to safety Outcome: [...] hygiene technique 7. Identify and instruct patient/patient provider relations representative in use of appropriate isolation precautionsfor identified infection/symptoms 8. Provide and discuss with patient/patient provider relations representative on educational MDRO sheet 9. Encourage and monitor nutritional status daily and consult gas inspector if indicated 10. Implement neutropenic guidelines as [...] Description: INTERVENTIONS: 1. Encourage patient or legal provider relations representative to report early pain and ask [...] per policy 9. Teach patient or legal provider relations representative interventions for comforting Note: Evaluation of progress towards goal: Patient encouraged to report pain occurrence. Pain assessed using 0-10 pain scale. Patient reports no pain at this time. PRN pain medication ordered if needed. [facility] Plan of care note* Plan of Care - Radha Rico RN - 03/03/2024 6:40 PM EDT Problem: Pain Goal: Patient goal is pain score less than 4, able to rest, and participant in treatment plan as appropriate Description: INTERVENTIONS: 1. Encourage patient or legal provider relations representative to report early pain and ask [...] per policy 9. Teach patient or legal provider relations representative interventions for comforting Outcome: Progressing Note: Evaluation of progress towards goal: Encourage patient or legal provider relations representative to report early pain and ask [...] at the bedside 7. Instruct patient/ patient provider relations representative about use of safety devices 8. Include patient/ patient provider relations representative in decisions related to safety Outcome: [...] hygiene technique 7. Identify and instruct patient/patient provider relations representative in use of appropriate isolation precautionsfor identified infection/symptoms 8. Provide and discuss with patient/patient provider relations representative on educational MDRO sheet 9. Encourage and monitor nutritional status daily and consult gas inspector if indicated 10. Implement neutropenic guidelines as [...] and monitor nutritional status daily and consult gas inspector if indicated. Encourage annual influenza vaccine and pneumonia vaccine. [facility]10-21-2024 Progress note* Discharge Planning Note - Zita [...] to perform ADLs. 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 Her son will transport home at discharge. Her PCP is Dr. Jeremiah Reed,will add to [employer]. She denies any financial restraints to meeting [...] home (pt-stated) Evaluation of progress towards goal: [facility]10-20-2024 Plan of care note* Plan of Care - Ankit De Dios RN - 03/02/2024 10:40 PM EDT Problem: Pain Goal: Patient goal is pain score less than 4, able to rest, and participant in treatment plan as appropriate Description: INTERVENTIONS: 1. Encourage patient or legal provider relations representative to report early pain and ask [...] per policy 9. Teach patient or legal provider relations representative interventions for comforting Outcome: Progressing Note: [...] at the bedside 7. Instruct patient/ patient provider relations representative about use of safety devices 8. Include patient/ patient provider relations representative in decisions related to safety Outcome: [...] hygiene technique 7. Identify and instruct patient/patient provider relations representative in use of appropriate isolation precautionsfor identified infection/symptoms 8. Provide and discuss with patient/patient provider relations representative on educational MDRO sheet 9. Encourage and monitor nutritional status daily and consult gas inspector if indicated 10. Implement neutropenic guidelines as [...] to monitor Problem: Knowledge Deficit Goal: Patient/patient provider relations representative demonstrates understanding of disease process, treatment [...] Score of =/> 25 [facility] Goal: Patient should be free from fall Description: Interventions: 1. [place] to environment 2. Hourly rounds addressing the [...] non-skid footwear 11. Teach patient and patient provider relations representative to maintain environment for safety and [...] (cane, walker) within reach 19. Request patient provider relations representative bring adaptive equipment/mobility aids from home or obtain and provide as needed 20. Consult pharmacy regarding effects of med's affecting mobility, cognition, and alternatives 21. Obtain physician order for PT if risk factors associated with mobility are present 22. Obtain physician order for OT as appropriate 23. Utilize diversional activities 24. Educate patient and patient provider relations representative how to maintain a safe environment during visitationtimes (notify nurse prior to leaving bedside) 25. Consider appropriateness of medical or non-medical social worker 26. Set up voiding schedule as appropriate (every 2 hours) Outcome: Progressing Note: Evaluation of progress towards goal: Fall risk assessed, bed maintained in low position, calllight within reach, bed and chair alarm on and working, nil falls this shift. Will continue to monitor [facility] Plan of care note* Plan of Care - Dayna Petitanneliese - 03/02/2024 2:30 PM EDT Problem: Pain Goal: Patient goal is pain score less than 4, able to rest, and participant in treatment plan as appropriate Description: INTERVENTIONS: 1. Encourage patient or legal provider relations representative to report early pain and ask [...] per policy 9. Teach patient or legal provider relations representative interventions for comforting Outcome: Progressing Note: Evaluation of progress towards goal: [employer] Biller assessed pt pain in the beginning and throughout shift. Pt stated a tolerable pain goal was zero. [employer] Biller medicated pt pain per order. Will continue [...] at the bedside 7. Instruct patient/ patient provider relations representative about use of safety devices 8. Include patient/ patient provider relations representative in decisions related to safety Outcome: [...] hygiene technique 7. Identify and instruct patient/patient provider relations representative in use of appropriate isolation precautionsfor identified infection/symptoms 8. Provide and discuss with patient/patient provider relations representative on educational MDRO sheet 9. Encourage and monitor nutritional status daily and consult gas inspector if indicated 10. Implement neutropenic guidelines as [...] of infection. Problem: Knowledge Deficit Goal: Patient/patient provider relations representative demonstrates understanding of disease process, treatment [...] Score of =/> 25 or indicated by [facility] Assessment Goal: Patient should be free from fall Description: Interventions: 1. [place] to environment 2. Hourly rounds addressing the [...] non-skid footwear 11. Teach patient and patient provider relations representative to maintain environment for safety and [...] (cane, walker) within reach 19. Request patient provider relations representative bring adaptive equipment/mobility aids from home or obtain and provide as needed 20. Consult pharmacy regarding effects of med's affecting mobility, cognition, and alternatives 21. Obtain physician order for PT if risk factors associated with mobility are present 22. Obtain physician order for OT as appropriate 23. Utilize diversional activities 24. Educate patient and patient provider relations representative how to maintain a safe environment during visitationtimes (notify nurse prior to leaving bedside) 25. Consider appropriateness of medical or non-medical social worker 26. Set up voiding schedule as appropriate [...] - Tiffanie Smith RN 03/02/24 5:59 PM [facility]10-20-2024 Plan of care note* Plan of Care - Jaimee Hobson RN - 03/02/2024 4:15 AM EDT Problem: Pain Goal: Patient goal is pain score less than 4, able to rest, and participant in treatment plan as appropriate Description: INTERVENTIONS: 1. Encourage patient or legal provider relations representative to report early pain and ask [...] per policy 9. Teach patient or legal provider relations representative interventions for comforting Outcome: Progressing Note: [...] at the bedside 7. Instruct patient/ patient provider relations representative about use of safety devices 8. Include patient/ patient provider relations representative in decisions related to safety Outcome: [...] hygiene technique 7. Identify and instruct patient/patient provider relations representative in use of appropriate isolation precautionsfor identified infection/symptoms 8. Provide and discuss with patient/patient provider relations representative on educational MDRO sheet 9. Encourage and monitor nutritional status daily and consult gas inspector if indicated 10. Implement neutropenic guidelines as needed 11. Review exposure to history of communicable disease and recent travel history on admission 12. Encourage annual influenza vaccine 13. Encourage pneumonia vaccine Note: Evaluation of progress towards goal: Patient has remained afebrile. WBC and vital signs monitored. Patient has not shown any additional signs of infection at this time. Labmeeting [id number] History and physical note* Aga Ortiz MD - 03/02/2024 1:55 AM EDT Images from the original note were not included. [facility] Neurology General Neurology Primary Admission Note Primary Neurology service: [phone] Chief Complaint: Photophobia and confusion with shingles [...] light touch throughout. Cerebellar: Able to do xynlof-ir-edgs bilaterally Gait and station: Deferred Pertinent Labs: [...] code Porfirio Choi MD PGY-2 Neurology Resident [facility] 03/02/24 Staffed with: Dr. Monteiro This patient is being followed by the Neurology Resident service. Contact attending directly during these hours: Sunday to 7:30-8:30 A.M. to Sunday 12-1:00 p.m. Primary Neurology service: [phone] Consult neurology service: [phone] Resident Stroke Service: [phone] If the patient belongs to the Stroke [...] above. Aga Mendoza MD PGY-3 Neurology Resident [facility] Staffed with Dr. Monteiro Cosigned by Renay [...] acute left V1 herpetic infection; rule out BROKER IN CHARGE viral infection (VZV) Plans/Recommendations: continue IV acyclovir; IR-guided LP after brain MRI with contrast; neurological observation; extensive discussion with patient and her son; questions answered and consent obtained Renay Monteiro MD, PhD [facility] Interview Rocket [id number] History and physical note* Aga Ortiz MD - 03/02/2024 1:55 AM EDT Images from the original note were not included. [facility] Neurology General Neurology Primary Admission Note Primary Neurology service: [phone] Chief Complaint: Photophobia and confusion with shingles [...] light touch throughout. Cerebellar: Able to do yfwykc-ep-kjng bilaterally Gait and station: Deferred Pertinent Labs: [...] code Porfirio Choi MD PGY-2 Neurology Resident [facility] 03/02/24 Staffed with: Dr. Monteiro This patient is being followed by the Neurology Resident service. Contact attending directly during these hours: Sunday to 7:30-8:30 A.M. to Sunday 12-1:00 p.m. Primary Neurology service: [phone] Consult neurology service: [phone] Resident Stroke Service: [phone] If the patient belongs to the Stroke [...] above. Aga Mendoza MD PGY-3 Neurology Resident [facility] Staffed with Dr. Monteiro Cosigned by Renay [...] acute left V1 herpetic infection; rule out BROKER IN CHARGE viral infection (VZV) Plans/Recommendations: continue IV acyclovir; IR-guided LP after brain MRI with contrast; neurological observation; extensive discussion with patient and her son; questions answered and consent obtained Renay Monteiro MD, PhD [facility] History of Present illness Narrative* Christiano Maldonado, BLAIRE - 01/24/2024 1:00 PM EDT Patient: Aaron Lewis : 1945 PCP: Jeremiah Reed MD SUBJECTIVE [...] Partner Violence: Unknown (07/05/2023) [facility] [place] [facility] Environment Fear of [...] 10 Christiano Maldonado DPM documented in this encounterTwo [facility] [id number] Hospital Discharge instructions Patient Education 12/25/2023 13:05:34 [...] to have the catheter removed. Medicines Take ipkt-fak-gffiiib and prescription medicines only as told by [...] provider. Document Revised: 12/16/2020 Document Reviewed: 12/03/2020 [employer] Patient Education 2022 [employer] [facility]. Follow Up Care 12/03/2023 14:36:32 With:BRENDA MARIN PA-C, URL Address: [address] [place] [address] [phone] When: Unknown [facility] 08-13-2024 NotePatient Education Urology Injection Treatments [...] have the catheter removed. Medicines ? Take iuzs-dmh-dcqyysa and prescription medicines only as told by [...] provider. Document Revised: 12/16/2020 Document Reviewed: 12/03/2020 [employer] Patient Education ? 2022 [employer] [facility].[facility] 12-03-2023 Hospital Discharge instructions Patient Education 12/03/2023 [...] Up Care 10/01/2023 15:36:12 With:BRENDA MARIN Address: [address] [place] [address] Business (1) When: Unknown Comments:Call for followup appointment with Georgette Marin PA-C within the next three weeks or so. Push fluids to keep the urine clear. Expect the Botox to start working within the next 2-3 weeks. Have a great day! [facility]07-22-2024 NotePatient Education Cystoscopy with Botox injection ? [...] if you have a fever over 100 degrees.[facility] 09-26-2023 Hospital Discharge instructions Patient Education 09/26/2023 [...] including vitamins, herbs, eye drops, creams, and ibdy-pio-govchnz medicines. Any problems you or family members [...] provider tells you to take them. Taking vkwd-nkk-leyzwaw medicines, vitamins, herbs, and supplements. General instructions [...] Follow these instructions at home: Medicines Take elye-qmq-ampalnn and prescription medicines only as told by [...] provider. Document Revised: 11/04/2021 Document Reviewed: 11/04/2021 [employer] Patient Education 2022 [facility]. Follow Up Care 08/30/2023 10:04:37 With:MIAH ROE, BRENDA Poole, URL Address: [address] [place] [address] [phone] When: Unknown Comments:flaquita dietz MD [facility] 04-16-2024 Hospital Discharge instructions Patient Education [...] your health care provider. General instructions Take vlnh-gqg-puofivr and prescription medicines only as told by [...] provider. Document Revised: 01/17/2021 Document Reviewed: 01/17/2021 [employer] Patient Education 2022 [facility]. Follow Up Care 07/23/2023 14:35:57 With:BRENDA MARIN PA-C, URL Address: [address] [place] [address] Business (1) When:6 weeks [facility] 03-11-2024 Hospital Discharge instructions Patient Education [...] Up Care 06/11/2023 13:39:28 With:BRENDA MARIN Address: [address] [facility] [place] [address] Business (1) When: Unknown Comments:Call for followup appointment with Georgette Marin PA-c within the next 2 months or so to monitor you. Please finish your antibiotics and have a great day. [facility]03-11-2024 Note [id number] [facility] 07-23-2023 NoteCystoscopy with Urethral Dilation ? Voiding [...] if you have a fever over 100 degreesC[facility] Clinic [facility]02-07-2024 Evaluation note* Encounter Date Diagnosis Assessment Notes Treatment Notes Treatment Clinical Notes Jun, Essential (primary) hypertension (ICD-10 - I10) [facility] Other 01-23-2024 Hospital Discharge instructions Patient Education [...] reconstructed. Follow these instructions at home: Take dpjn-uby-iojhbtu and prescription medicines only as told by [...] provider. Document Revised: 03/07/2022 Document Reviewed: 03/07/2022 [employer] Patient Education 2022 [facility]. Follow Up Care 06/21/2022 15:14:52 With:CEZAR BERNAL, Cayden Hollins, URL Address: [address] [place] [address] [place] [address]- When: Unknown [facility] Nini 01-23-2024 Evaluation + Plan note Diagnostic Tests Pending * Urine Culture 06/05/23 [facility]12-18-2023 Evaluation note* Encounter Date Diagnosis Assessment [...] symptoms. Any developing patterns. Stay well hydrated. [facility] Other [id number] Evaluation + Plan noteExtracted from: Title:Discharge Note Author:TITI SAUER-SKYLA, Re nee Date:04/13/23 Hemodynamically stable resul ts [...] cap(s), Oral, Daily With When Contact Information [facility] Additional Instructions: Call for followup appointment for anxiety/depression care. Gerald Nolasco Within [address] to [address], [place] [address]- Business (1) Additional Instructions: JEREMIAH REED Within 2 to 4 days [facility] [place] [address]- Business (1) Additional Instructions: Confusion Extracted from: Title:Consult Note-neurology Author:Anneliese Jolly RN Date:04/13/23 ASSESSMENT: 1. Acute confusional [...] deep vein thrombosis (DVT) prophylaxis (Z79.899: Other vermin exterminator (current) drug therapy) Depression, unspecified (F32.A: Depression, [...] deep vein thrombosis (DVT) prophylaxis (Z79.899: Other residential (current) drug therapy) Depression, unspecified (F32.A: Depression, [...] Cr - unknown - awaiting records from [facility] -Renal US & PVR - if [...] deep vein thrombosis (DVT) prophylaxis (Z79.899: Other residential (current) drug therapy) -Heparin sq with early [...] made to ensure accuracy, however, inadvertently computerized spinning frame changer mistakes may be present. Future Appointments Appointment Date:06/05/2023 01:00:00 PM Scheduled Provider:BRENDA MARIN PA-C Location:[facility] Appointment Type:URO Office Visit [facility]12-01-2023 Hospital Discharge instructions Patient Education 04/13/2023 [...] friend for help if needed. Medicines Take dfmk-qkr-wnakpuo and prescription medicines only as told by [...] provider. Document Revised: 08/24/2020 Document Reviewed: 08/24/2020 [employer] Patient Education 2022 [employer]. Follow Up Care 04/12/2023 12:15:50 With:Johnnie BERNAL, ALPHONSE Choi Address: [address] [place] [address]- When:1 to 2 weeks Comments:This office is closed on Fridays. Please call the office on Sunday April 16, 2023 for a follow upappiontment. Thank you. With:JEREMIAH REED Address: [address] [place] [address]- [facility] (1) When:2 to 4 days Comments:Call for followup appointment With:[facility] Address:Unknown When: Unknown Comments:Call for followup appointment for anxiety/depression care. [facility]11-17-2023 Evaluation note* Encounter Date Diagnosis Assessment Notes Treatment Notes Treatment Clinical Notes Mar, Colon cancer screening (ICD-10 - Z12.11) [employer] Other [id number] Evaluation note* Encounter Date Diagnosis Assessment Notes Treatment Notes Treatment Clinical Notes Mar, Generalized weakness (ICD-10 - R53.1) Followup as scheduled w ortho and PT Mar, COPD, moderate (ICD-10 - J44.9) continue present medication reviewed ER report from observation status [employer] Other 03-30-2023 NoteCONSULTATION CONSULTATION DATE: 08/10/2022 TO: [...] weeks' time or sooner if needed. [id number] NoteCONSULTATION PROCEDURE DATE: 08/10/2022 PROCEDURE: Right suprascapular [...] reduction in her pain symptoms post procedurally.[id number] Hospital Discharge instructions Patient Education 06/21/2022 14:35:24 [...] fried and sweet foods. General instructions Take mvxw-pmb-jzghecq and prescription medicines only as told by [...] 02/24/2010 Document Revised: 08/21/2019 Document Reviewed: 05/16/2018 [employer] Patient Education 2020 [employer]. Follow Up Care 05/19/2021 14:10:29 With:BRENDA MARIN PA-C, URL Address: [address] [place] [address] When: Unknown [facility] 12-29-2022 NoteCONSULTATION CONSULTATION DATE: 05/11/2022 HISTORY [...] the diclofenac. 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 [...] in three months' time unless otherwise indicated.[facility] [id number] NoteCONSULTATION CONSULTATION DATE: 02/23/2022 This is a [...] in three months' time unless otherwise indicated.[facility] [id number] NoteCONSULTATION CONSULTATION DATE: 01/08/2022 HISTORY OF PRESENT [...] followed up in the office post procedure.[facility] [id number] Note CONSULTATION CONSULTATION DATE: 12/07/2021 HISTORY OF [...] and patient would like to proceed. [facility] [id number] History general Narrative - Reported* Type Description Date Medical History Chronic back pain Medical History HTN Medical History anxiety Medical History DJD Medical History osteoporosis Surgical History Lumbar laminectomy and fusion Surgical History Hysterectomy (spared L ovary) Surgical History Landaverde's neuroma Hospitalization History For surgery as above Hospitalization History [facility] 03/2023 [employer] Other Evaluation + Plan note Future Appointments Appointment Date:06/26/2023 02:30:00 PM Scheduled Provider:BRENDA MARIN PA-C Location:[facility] Appointment Type:URO Office Visit [facility] evaluation + Plan note Future Appointments Appointment Date:08/28/2023 03:00:00 PM Scheduled Provider:BRENDA MARIN PA-C Location:[facility]ments Appointment Date:11/27/2023 11:00:00 AM Scheduled Provider: Location:[facility] Appointment Type:Urology CALL PAT FT Appointment Date:12/03/2023 02:00:00 PM Scheduled Provider: Location:[facility] Appointment Type:Urology FT [facility] evaluation + Plan note Future Appointments Appointment Date:12/25/2023 12:40:00 PM Scheduled Provider:BRENDA MARIN PA-C Location:[facility] App[facility] App[facility]ments Appointment Date:10/27/2024 01:20:00 PM Scheduled Provider:BRENDA MARIN PA-C Location:[facility] Appointment Type:URO Office Visit [facility] evaluation noteNo [facility]Now[facility] Other Evaluation noteNo assessment information [facility] Work Phone: Evaluation note* Diagnosis Onychomycosis- Primary Dermatophytosis of nail Toe pain, bilateral [facility] Diagnosis Viral meningitis- Primary Unspecified viral meningitis 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) Other convulsions [facility] Diagnosis Viral meningitis- Primary Unspecified viral meningitis 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 [facility] Medical History (Updated 03/31/24 @ 12:27 [...] % (Auto) 19.2 % (.) 03/31/24 07:57 Bell % (Auto) 8.9 % (.) 03/31/24 07:57 Eos % (Auto) 2.6 % (.) 03/31/24 07:57 Baso % (Auto) 1.1 % (.) 03/31/24 07:57 Nucleat RBC Rel Count 0.1 /100 WBC (0-0.5) 03/31/24 07:57 Neut # (Auto) 4.7 x10E3/uL (1.8-7.7) 03/31/24 07:57 Lymph # (Auto) 1.3 x10E3/uL (1.00-4.8) 03/31/24 07:57 Bell # (Auto) 0.6 x10E3/uL (0.0-0.8) 03/31/24 07:57 [...] pH 6.0 (5.0-9.0) 03/31/24 07:19 Ur Specific [place] 1.011 (1.001-1.030) 03/31/24 07:19 Urine Protein Negative [...] errors, if they are is due to spinning frame changer. Rosendo aLw MD Hospitalist IP vs OBS Justification Based [...] signed by Rosendo Law MD> 03/31/24 1229 [facility] Work Phone: Hospital course Narrative No data available for this section [facility] Hospital Discharge instructions No data available for this section [facility] Additional Instructions Increase fluids. Use Miralax twice a day until regular bowel movements. Take antibiotic for urinary tract infection.[facility] Work Phone: InstructionsNot on filedocumented in this encounter [facility] SystemProgress note No data available for this section [facility] reason for visit Narrative* Auth/Cert (Routine) Specialty Diagnoses / Procedures Referred By Contac t Referred To Contact Diagnoses Viral meningitis Suspected viral meningitis Renay Monteiro MD [address], [address] [place] [address] Phone: tel: fax: Referral ID Status Reason Start Date Expiration Date Visits Re quested Visits Authorized [id number] 1 1 [facility] Summary Purpose Family History Relationship Condition Age at Onset Recorded Date/T delmi sister Osteogenesis imperfecta Unknown daughter Fibromyalgia Unknown father History of stroke Unknown Unknown family member Unknown mother Malignant neoplasm Unknown son Hypertension Unknown sister Diabetes mellitus Unknown Advance Directives Advance Directive Response Recorded Date/ Time Advance Directives No March 10:20pm Advance Directive Response Recorded Date/ Time Advance Directives No March 9:20pm Advance Directive Response Recorded Date/ Time Advance Directives No March 9:38am Date Activated Date Inactivated Comments 03/02/2024 2:57 AM Date Activated Date Inactivated Comments 03/02/2024 2:57 AM 03/07/2024 6:52 PM Chief Complaint and Reason for Visit Chief [...] 2024 12:23pm Acute urinary retention March 31, 2 024 12:23pm Altered mental status March 31 [...] 2024 12:23pm confusion April 02, 2024 8:53am long-term visit April 14, 2024 1 1:59pm long-term visit April 24, 2024 11:59pm Amb Documentation May 21, 2024 8: 39am NH Discharge f/u May 22, 2024 1: 03pm Reason for Visit Admit Date Chronic back pain greater than 3 months duration March 12, 2024 9:43am CKD (chronic kidney disease), stage III March 12, 2024 9:43am Hypertension March 12, 2024 9 :43am 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 Oc tober 2023 9:43am Acute urinary retention March 31, 2 024 12:23pm Chronic back pain greater than 3 months duration March 31, 2024 12:23pm CKD (chronic kidney disease), stage III March 31, 2024 12:23pm Hypertension March 31, 2024 12:23pm 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 No vember 2023 12:23pm Acute metabolic encephalopathy March 31, 2024 12:23pm Altered mental status March 31 12:23pm Dehydration March 31, 2024 12:23pm Urinary tract infection May 22 1:03pm Additional Source Comments Reason for Visit (unrecogniz ed section and content) Reason Comments Medication Refill Reason Comments Toenail Care Non Dm nails Reason Onset Date Comments Referral 03/10/2024 Patient Care team informatio n (unrecognized section and content) Team Status: Active Member Role Status Dates Jeremiah Reed MD Primary Care Provider Active Team Status: Active Member Role Status Dates Jeremiah Reed MD Primary Care Provider Active Start: December 18, 2023 LATASHA Emerson Attending Provider Active St art: December 18, [...] Fofana MD Other Provider Active Start: N ovbrigida 2023 End: April 03, 2024 Pamella Avitia SALES UTILITY REPRESENTATIVE Other Provider Active St art: March 31, [...] Ashli Bartlett MD Other Provider Active Start: 2023 Ray Fofana MD Attending Provider, Other Provider Active Start: April 02, 2024 Pamella Avitia APRN Other Provider Active St art: April 02, 2024 Johnnie Jean Jr, DO Other Provider Active S tart: April 02, 2024 Sung Craig MD Other Provider Active Start: April 02, 2024 Aluminum Siding Installer Relationship Specialty Start Date End Date Jeremiah Reed MD [address] [place] [address] PCP - General Family Medicine 08/30/23 Aluminum Siding Installer Relationship Specialty Start Date End Date Jeremiah Reed MD [address] [place] [address] PCP - General Family Medicine 08/30/23 Team Status: Active Member Role Status Dates Jeremiah Reed MD Primary Care Provide r, Attending Provider Active Start: April 14, 2024 Team Status: Active Member Role Status Dates Jeremiah Reed MD Primary Care Provide r, Attending Provider Active Start: April 22, 2024 Team Status: Active Member Role Status Dates Jeremiah Reed MD Primary Care Provide r, Attending Provider Active Start: April 24, 2024 Team Status: Active Member Role Status Dates Jeremiah Reed MD Primary Care Provider Active Start: May 21, 2024 Jenny Ezio , UTILITY BAGGER Attending Provider Active Start: May 21, 2024 Team Status: Inactive Member Role Status Dates Jeremiah Reed MD Primary Care Provide r, Attending Provider Active Start: May 22, 2024 End: May 22, 2024 Aluminum Siding Installer Relationship Specialty Start Date End Date Jeremiah Reed MD [address] [place] [id number] PCP - General Family Medicine 03/03/24 Aluminum Siding Installer Relationship Specialty Start Date End Date Jeremiah Reed MD [address] [place] [address] PCP - General Family Medicine 03/03/24 INFORMATION SOURCE (unrecogn ized section and content) DATE CREATED AUTHOR 09/08/2022 [facility] DATE CREATED AUTHOR AUTHOR'S ORGANIZ ATION 01/26/2024 [facility] DATE CREATED AUTHOR AUTHOR'S ORGANIZ ATION 02/11/2024 [facility] DATE CREATED AUTHOR AUTHOR'S ORGANIZ ATION 04/27/2024 [facility] DATE CREATED AUTHOR AUTHOR'S ORGANIZ ATION 05/23/2024 [facility] DATE CREATED AUTHOR AUTHOR'S ORGANIZ ATION 05/28/2024 [facility] Goals (unrecognized section and content) Goals may be documented in a n alternate section Scheduled Active and Recently Administ ered Medications [...] 0430, VESICANT (YELLOW), Indication: HSV/VZV infection of BROKER IN CHARGE 0401 (New Bag - Provider: Tashia Redding RN)0501 (Stop Bag - Provider: Tashia Redding RN - Comment: patient did not receive full dose d/t infiltrated line. unable to start new line. Neuro aware)1645 (New Bag - Provider: Viki Read, RN)1745 (Stop Bag - Provider: Gayla Mcwilliams [...] RN) 0801 (Given - Provider: Carolin Jerome RN)2052 (Given - Provider: Fannie Rooney RN) 0809 (Given - Provider: Gayla Mcwilliams RN)2100 (Due) calcium carbonate (OS-RAYMON) 500 mg elemental (1,250 mg) tablet 500 mg 500 mg, oral, Daily with breakfast, First dose on Sun03/02/24 at 0800, Ordered as elemental calcium. 500 [...] Jerome, GIORGIO)1628 (Given - Provider: Carolin Jerome, RN)205 (Given - Provider: Fannie Rooney RN) 08 (Given - Provider: Gayla Mcwilliams RN)1700 (Due) melatonin (CIRCADIN) tablet 5 mg 5 mg, oral, Nightly, First dose on 03/02/24 at 2330 2026 (Given - Provider: Tashia Redding RN) 2052 (Given - Provider: Fannie Rooney RN) 2199 (Due) nortriptyline (PAMELOR) capsule 25 mg 25 mg, oral, Nightly, First dose on 03/02/24 at 0200, Look-alike/sound-iman e medication - verify indication for use. 2026 (Given - Provider: Tashia Redding RN) 2052 (Given - Provider: Fannie Rooney RN) 2199 (Due) oxyCODONE-acetaminoph en (PERCOCET) 5-325 mg per [...] - Provider: Fannie Rooney RN) 2200 (Due) sodium chloride 0.9 % flush 10 mL(Linked Group 1) 10 mL, intravenous, Every 12 hours, First dose on Sun03/05/24 at 1130, PICC line. Administer 10 mL per lumen; 10 mL total (for single lumen flush) 113 (Given - Provider: Gayla Mcwilliams RN)2027 (Given - Provider: Tashia Redding RN) 08 (Given - Provider: Carolin Jerome RN)2053 (Given - Provider: Fannie Rooney RN) 113 (Given - Provider: Gayla Mcwilliams RN)2330 (Due) sodium chloride 0.9 % flush 3 mL 3 mL, intravenous, Every 12 hours scheduled, First dose on Sun03/02/24 at 0045 0900 (Not Given - Provider: Gayla Mcwilliams RN - Reason: Loss of IV access)2100 (Canceled Entry - Provider: Tashia Redding RN) 08 (Given - Provider: Caorlin Jerome RN)2053 (Given - Provider: Fannie Rooney RN) 0811 (Given - Provider: Gayla Mcwilliams RN)2100 (Due) tobramycin-dexAMETHas one (TOBRADEX) 0.3-0.1 % ophthalmic suspension 1 drop 1 drop, left eye, 2 times daily, First dose on Sun03/02/24 at 0215, Look-alike/sound-iman e medication - verify indication for use. 0852 (Given - Provider: Gayla Mcwilliams RN)2027 (Given - Provider: Tashia Redding RN) 08 (Given - Provider: Carolin Jerome RN)2053 (Given - Provider: Fannie Rooney RN) 0809 [...] to shoulder. 1647 (Given - Provider: Viki Read RN) 0811 (Given - Provider: Gayla Mcwilliams RN) glucagon HCL injection 1 mg 1 mg, intramuscular, As needed, low blood sugar, blood glucose less than 70 mg/dL and unconscious or NPO without IV access., Starting on Sun03/02/24 at 0031, If conscious and not NPO, [...] for use. 2027 (Given - Provider: Tashia Redding, RN) 105 (Given - Provider: Carolin Jerome, RN)2052 (Given - Provider: Fannie Rooney, GIORGIO) 1358 (Given - Provider: Gayla Mcwilliams, GIORGIO) ondansetron (PF) (ZOFRAN) injection 4 mg 4 [...] 20 mL total (for single lumen flush) FOR RECORDS PERTAINING TO PATIENTS WHO ARE [...] BE BASED ON THE PRIMARY CLINICAL RECORDS. [employer] provides no warranty or guarantee of the accuracy or completeness of information in this document.
== END 2024-07-14 09:06 | disposition home or self-care (01) ==
LOC: RAD 09:08
PROVIDERS: PCP Family Medicine; Visit Provider Anesthesiology
DX: M25.532 Pain in left wrist (principal)
CPT/HCPCS: 73110

== ENCOUNTER 2024-07-24 13:03 | Outpatient (OUT) | payer MEDICARE, SELFPAY ==
--- NOTE | 2024-07-24 13:36 | PM.CN ---
Consult Note: HPI Data of Consult Patient: known to practice within the last 3 years Requesting Physician: Sheri Lozano NP Primary Care Provider: Tierra Newell MD Consult Narrative Reason for consult: f/u Narrative: Jing Hoffmann a pleasant 79 year old female presents for evaluation and management of chronic neck and low back pain. Patient reporting moderate to severe low back pain with radiculopathy, greater than 3 months unresponsive to HEP and conservative medications. Pain today 4-5/10 aching sharp increasing to 8/10 with activity, standing, walking, pushing, pulling, ADLS. Pain improved with heat, lying, and sitting. currently engaged in PT at home without benefit. utilizing tylenol, naproxen, gabapentin, nortriptyline and percocet PRN with benefit without side effects. denies falls since last visit, utilizing walker. recently underwent right SIJ injection with >50% improvement ongoing. pt would like to address left side at this time. cc:: CC: Sheri Lozano NP Review of Systems ROS Status of ROS 10 or more systems reviewed and unremarkable except as noted in history and below Musculoskeletal Reports: back pain, extremity pain and joint pain [facility] Medical History (Updated 06/18/24 @ 13:36 by Sheri Lozano NP) Metabolic encephalopathy ?G93.41 - Metabolic encephalopathy (ICD-10) COPD (chronic obstructive pulmonary disease) ?J44.9 - Chronic obstructive pulmonary disease, unspecified (ICD-10) GERD (gastroesophageal reflux disease) ?K21.9 - Gastro-esophageal reflux disease without esophagitis (ICD-10) Chronic pain ?G89.29 - Other chronic pain (ICD-10) Anxiety ?F41.9 - Anxiety disorder, unspecified (ICD-10) HTN (hypertension) ?I10 - Essential (primary) hypertension (ICD-10) Chronic prescription opiate use ?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 (ICD-10) Shoulder arthritis ?M19.019 - Primary osteoarthritis, unspecified shoulder (ICD-10) Cervical spondylosis ?M47.812 - Spondylosis without myelopathy or radiculopathy, cervical region (ICD-10) Surgical History History of lumpectomy of left breast ?Z98.890 - Other specified postprocedural states (ICD-10) History of back surgery ?Z98.890 - Other specified postprocedural states (ICD-10) History of hysterectomy ?Z90.710 - Acquired absence of both cervix and uterus (ICD-10) Family History Mother Family history of cancer Father Family history of stroke Grandfather Family history of stroke Social History Within the past year, how often did you have a drink containing alcohol: never Score interpretation: A score less than 3 is consistent with normal alcohol consumption. Smoking status: Former smoker Non-prescribed substance use: denies use Previous occupational history: retired Highest level of school completed/degree received: high school graduate Are you now , , , , never or living with a partner: Little interest or pleasure in doing things: not at all Feeling down, depressed, or hopeless: not at all Feel stressed/tense/nervous/anxious/difficulty sleeping: not at all Do you think of yourself as: straight/heterosexual Gender Identity: female Meds Home Medications and Allergies Home Medications ?Medication ?Instructions ?Recorded ?Confirmed ?Type omeprazole 40 mg capsule,delayed 40 mg PO DAILY 10/26/22 07/14/24 History release calcium carbonate (Calcium 600) 600 mg PO DAILY 03/21/23 07/14/24 History aspirin 81 mg tablet,delayed 81 mg PO DAILY 08/30/23 07/14/24 History release buspirone 10 mg tablet 15 mg PO BID 12/28/23 07/14/24 History baclofen 10 mg tablet 10 mg PO BID PRN pain 03/01/24 07/14/24 History trospium 20 mg tablet 20 mg PO DAILY 03/01/24 07/14/24 History naloxone 4 mg/actuation nasal 4 mg intranasal Q2M PRN opioid 03/27/24 07/14/24 Rx spray (Narcan) overdose #1 ea oxycodone-acetaminophen 5 mg-325 1 tab PO TID PRN pain #90 tabs 05/08/24 07/14/24 Rx mg tablet (Percocet) docusate sodium 100 mg capsule 100 mg PO DAILY 05/15/24 07/14/24 History (Colace) gabapentin 600 mg tablet 600 mg PO TID 05/15/24 07/14/24 History ondansetron 4 mg disintegrating 4 mg PO TID-QID PRN nausea and 05/15/24 07/14/24 History tablet vomiting nortriptyline 25 mg capsule 25 mg PO DAILY #30 caps 06/02/24 07/14/24 Rx amlodipine 5 mg tablet 5 mg PO DAILY 07/17/24 07/17/24 History famciclovir 125 mg tablet 125 mg PO BID 07/17/24 07/17/24 History glucosamine sulfate 500 mg tablet 500 mg PO DAILY 07/17/24 07/17/24 History (Glucosamine) multivitamin 1 tab PO DAILY 07/17/24 07/17/24 History vit C-vit R-wfafzd-mpztutrv-omega cap PO 07/17/24 History 3 100 mg-15 unit-2 mg-100 mg capsule Allergies Allergy/AdvReac Type Severity Reaction Status Date / Time No Known Drug Allergies Allergy Verified 07/14/24 08:00 Exam Constitutional Documenting provider has reviewed patient's vital signs: yes Common normals: no apparent distress, oriented x3, healthy appearing, alert and well nourished General appearance: cooperative HENMT Common normals: normocephalic, hearing grossly normal bilaterally and moist oral mucous membranes Head and scalp: normocephalic Eye Common normals: PERRL Pupil: PERRL Other: no visible rash or vesicles, mild edema to left periorbital area Neck & C-Spine Common normals: full ROM General: normal visual inspection Cervical spine: pain with cervical ROM Chest Common normals: inspection of chest normal Respiratory Common normals: normal respiratory effort, no retractions and no use of accessory muscles Back & Pelvis Lumbar spine/lower back: ROM limited and pain with ROM Sacroiliac joints: SI joint(s) abnormal (left SIJ positive daxa/fadir, thigh thrust, gaenslen ) Other: strength 5/5 in BLE Extremity Common normals: normal to inspection Right upper extremity: shoulder joint (pain and limited ROM, tender to touch) Other: limited ROM with abduction and overhead extension, unable to perform scratch test due to pain Neuro Common normals: oriented x3, CN's II-XII intact bilaterally, moves all extremities, no focal motor deficits, no sensory deficits noted and deep tendon reflexes 2+ bilaterally Sensorium/orientation: alert Motor exam: strength 5/5 throughout and no movement abnormalities noted Psych Common normals: mental status grossly normal, thought process normal, cooperative, affect normal, speech normal and activity/motor behavior normal Speech: normal speech Thought process: normal thought process Results Additional Findings Additional findings: If on a controlled substance or opioids, I have checked an [place] report on this patient and there are no aberrancies noted in the prescribing history.??If on a controlled substance or opioid a drug screen was completed and reviewed within the last year, and if there has not been a drug screen completed we ordered one today to monitor higher risk, state monitored pain medication use. As part of providing excellent, safe, comprehensive care, the following was completed at our patient's visit: 1. A medication reconciliation and review to ensure accurate knowledge of current/active medications, including asking our patients to inform us about any [id number] medications or herbal remedies/nutritional supplements/alternative remedies. 2. A review to specifically ensure our patients have had annual screening for screening for depression, screening for tobacco use, and screening for unhealthy alcohol use. For concerning screenings had a discussion with the patient, provided patient education, and recommended follow-up with primary care provider when appropriate. If patient noted with a risk of falling, they received education on strength, gait, and balance training to prevent future risk of falling. Portions of this note may have been carried over from the previous visit and updated as appropriate. Please note this office utilizes paper charting in addition to the electronic medical record. A list of current medications, vitals, and PMH is available there as the clinical staff outside of myself do not have access to zappit charting during the clinic day operations. As part of providing quality comprehensive care the current medications, vitals, and PMH were reviewed in the paper chart. Assessment and Plan Assessment and Plan (1) Sacroiliitis: (2) Lumbar stenosis with neurogenic claudication: (3) Lumbar spondylosis: (4) Failed back syndrome: Assessment and Plan: JENNIFER 44% (5) PHN (postherpetic neuralgia): (6) Chronic prescription opiate use: Assessment and Plan: I feel these medications are improving the patient's quality of life and allow them to tolerate activities of daily living as well as participate in recreational activity.? The patient does not report intolerable side effects. The patient is NOT opioid naive and non-pharmacologic and non-opioid treatment has failed to significantly relieve the patient's pain and improve functionality. The patient has a diagnosis that is related to a somatic or visceral pain etiology. ? ?? I reviewed with the patient the potential risks and side effects with the use of? opioid medications including but not limited to respiratory depression,? sedation, and even . Within the last 12 months I have verified the patient has access to naloxone should? these effects occur. The patient was advised to let? their family know they had Naloxone in case they would need to administer? the medication. I advised the patient to avoid the use of any other? sedation substances including alcohol, THC, and benzodiazepines while? taking opioid medications due to the risk of compounding side effects and? detrimental outcomes. within the last 12 months I have reviewed the [facility], pain treatment agreement and urine drug screen.? ?? A drug screen was completed within the last year, and no aberrancies were noted regarding their use of controlled substances. The patient understands they are subject to the terms and conditions of the pain contract that they have signed. ? ?? I have checked an [place]AR[place] report on this patient today and there are no aberrancies noted in the prescribing history.? Plan left SIJ injection under fluoroscopy pt not interested in spinal cord stimulator trial at this time due to transportation issues and commitment continue percocet 5-325mg TID PRN moderate to severe pain continue gabapentin 600mg TID, risks vs benefits reviewed continue transdermal therapeutics cream 6a TID QID PRN for pain secondary to PHN continue PT as tolerated f/u 2 weeks after injection
== END 2024-07-24 13:04 | disposition home or self-care (01) ==
LOC: PM 13:03
PROVIDERS: PCP Family Medicine; Visit Provider Nurse Practitioner
DX: M46.1 Sacroiliitis, not elsewhere classified (principal); M48.062 Spinal stenosis, lumbar region with neurogenic claudication; M47.816 Spondylosis without myelopathy or radiculopathy, lumbar region; M96.1 Postlaminectomy syndrome, not elsewhere classified; B02.29 Other postherpetic nervous system involvement; Z79.891 Long term (current) use of opiate analgesic
CPT/HCPCS: G0463

== ENCOUNTER 2024-08-03 10:58 | Emergency (ER) | payer MEDICARE, SELFPAY ==
[2024-08-03 11:03] VITALS: BP 124/76; PULSE 109; TEMP 36.8; O2SAT 97; BMI 31.9
--- OUTSIDE RECORDS SUMMARY | 2024-08-03 11:11 | XMS_ITS | CCD ---
Author Organization [facility] Care Team Providers Care It Desktop Support Specialist Name Role Phone Unavailable Primary Care Provider [...] Care Provider Elder Garcia APRN Emergency Provider [phone] Jarad Vargas DO Emergency Provider [phone] Rosendo Law MD Admit Provider Rosendo Law MD Attending Provider Ashli Bartlett MD Other Provider Ray Fofana MD Other Provider Pamella Avitia APRN Other Provider Johnnie Jean DO Other Provider [phone] Sung Craig MD Other Provider Jeremiah Reed MD Primary Care Provider [phone] Elder Garcia Admitting Unavailable Elder Garcia Attending [...] physicia Propensity to adverse reactions 9 Comment:Done Mobi Rider Other (7 sources) Allergies Reconciled Propensity to adverse reactions Unknown [employer] Other (2 sources) Other Allergy to substance 0 [facility] (1 source) Adhesive Tape Drug allergy (disorder) 4 [facility] Repository (2 sources) Adhesive Tape; Translations: [Tape] Allergy to substance Eruption of skin (disorder) [facility] Medications Current Medications Medication Drug Class(es) [...] Start: 04-13-2023 take 2 tablets by [facility] every six hours as needed for pain [...] 0430, VESICANT (YELLOW), Indication: HSV/VZV infection of PHARMACOVIGILANCE SPECIALIST [id number] 200 actuat albuterol 0.09 mg/actuat metered dose [...] 2:23pm Start: 02-11-2019 take 2 tablets by [facility] once daily amLODIPine 2.5 mg Tab 5 mg = 2 tab(s), Oral, Daily, # 90 tab(s), Refills(s) 0 Start Date: 02/11/19 Status: Ordered take 1 tablet by [facility] every twenty-four hours amLODIPine Besylate 5 [...] Ordered Start: 03-31-2024 take 1 tablet by [facility] twice daily Baclofen 10 mg tablet Active 10 MG PO Twice daily March 31, 2024 12:00am Start: 03-12-2024 take 2 tablets by [facility] three times daily Baclofen 5 mg tablet Active 10 MG PO Three times daily March 11, 2024 11:00pm Start: 03-12-2024 take 1 tablet by [facility] twice daily Baclofen 5 mg tablet Active [...] 2024 10:18am take 1 capsule by [facility] in the morning cholecalciferol, vitamin D3, 2,000 [...] 1 tablet by mouth twice daily Glucosamine Pfm-Hyebfmbtwm-Kje 500-400-200 mg tablet Active 1 TAB PO Twice daily March 11, 2024 11:00pm ciprofloxacin 500 mg oral tablet (3 sources) Quinolone Antimicrobial Star t: 0512-31 Cipro 500 mg Tab 500 mg = 1 tab(s), Oral, BID, Take twice daily x5 days starting the day prior to the procedure, # 10 tab(s), Refills(s) 0, Pharmacy: [facility]/pharmacy #[id number], 165, cm, 09/26/23 15:44:00 EDT, Height/Length Dosing, 91, kg, 09/26/23 15:44:00 EDT, Weight Dosing Start Date: 10/09/23 Status: Ordered Start: 06-11-2023 Cipro 500 mg T ab See Instructions, Take 1 tab day prior to procedure and 1 tab day of procdure - afterwards, # 2 tab(s), Refills(s) 0, [id number], 165, cm, 06/05/23 12:57:00 EST, [...] for 0 duration 5 years *Reorder from [facility] for eRx and Interaction Alerts* Nov, [...] day(s), # 30 tab(s), Refills(s) 11, Pharmacy: [facility]/pharmacy #[id number], 165, cm, 08/28/23 15:03:00 [...] Administer over 2-5 minutes. polyethylene glycol 3350 91908 mg powder for oral solution (4 sources) [...] in imaging, line care, MRI, Starting on [place] 03/02/24 at 1644, For 1 dose Start: 03-02-2024 End: 03-03-2024 take 75 mL intravenously every hour 75 mL/hr, intravenous, Continuous, Starting on [place] 03/02/24 at 0200, For 1 day Start: 03-02-2024 3 mL, intraven ous, Every 12 hours scheduled, First dose on [place] 03/02/24 at 0045 Start: 03-02-2024 3 mL, intraven ous, As needed, line care, before and after each intermittent use, Starting on Sun03/02/24 at 0031 Start: 03-02-2024 take 25 mL intraveno usly every hour as needed 25 mL, intravenous, at 100 mL/hr, Administer over 15 Minutes, As needed, line care, line care after IVPB administration, Starting on [place] 03/02/24 at 0031 solifenacin succinate 10 mg oral tablet (11 sources) Cholinergic Muscarinic Antagonist Start: 06-21-2022 End: 06-16-2023 take 1 tablet by mouth once daily Vesicare 10 mg Tab 10 mg = 1 tab(s), Oral, Daily, X 30 day(s), # 30 tab(s), Refills(s) 11, Pharmacy: [id number], 165, cm, 06/21/22 14:53:00 EST, Height/Length Dosing, 87, kg, 06/21/22 14:53:00 EST, Weight Dosing Start Date: 06/21/22 Stop Date: 06/16/23 Status: Ordered trospium chloride 20 mg oral tablet (11 sources) Cholinergic Muscarinic Antagonist Start: 05-27-2024 take 1 tablet by mouth at bedtime trospium 20 mg oral tablet 20 mg = 1 tab(s), Oral, Bedtime, # 90 tab(s), Refills(s) 3, Pharmacy: [facility]/pharmacy #[id number], 165, cm, 05/27/24 11:39:00 EST, Height/Length [...] x12. Active inhalation BID *Pick strength-form from [employer] for eRX* Mar, Active Start: 04-12-2022 take 1 puff(s) by in halation twice daily Tudorza Pressair 400mcg/actuat Tudorza Pressair 400mcg/actuat, 1 (one) Puff BID # 1, 04/12/2022, Ref. x12. Active inhalation BID for 30 *Pick strength-form from [employer] for eRX* Mar, Active Vibegron (Gemtesa) 75 [...] day(s), # 30 tab(s), Refills(s) 11, Pharmacy: [facility]/pharmacy #[id number], 165, cm, 08/28/23 15:03:00 [...] 2020 12:00am May 04, 2020 9:36am C,E,Zinc,Copper 24-Iwlrd4z-Xmy (Ocuvite Adult 50 Plus) 250-5-1 mg Capsule (10 sources) Start: 05-04-2020 End: 03-12-2024 C,E,Zinc,Copper 35-Nxwzx1d-Beb (Ocuvite Adult 50 Plus) 250-5-1 mg Capsule Discontinued 250 CAP PO Daily May 04, 2020 9:23am March 12, 2024 10:17am Start: 05-04-2020 C,E,Zinc,Coppe r 95-Nhbdg3t-Ihh (Ocuvite Adult 50 Plus) 250-5-1 mg Capsule Active 250 CAP PO Daily May 04, 2020 10:23am Start: 04-10-2020 End: 05-04-2020 C,E,Zinc,Copper 52-Vrbzn2y-A ut (Ocuvite Adult 50 Plus) 250-5-1 mg Capsule Discontinued 250 CAP PO Daily April 10, 2020 12:00am May 04, 2020 9:23am Start: 04-10-2020 End: 05-04-2020 C,E,Zinc,Copper 25-Fahij9i-V ut (Ocuvite Adult 50 Plus) 250-5-1 mg [...] meal Start: 08-28-2023 take 1 capsule by [facility] twice daily glucosamine 500 mg Cap 500 [...] clean-u p per request of Phys. [facility] Epile[facility]; convulsions (4 sources) Seizure; Translations: [...] clean-u p per request of Phys. 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 [address] Business (1) Medications What How Much When Instructions Unchanged trospium (trospium 20 mg oral tablet) 1 Tablets By Mouth At bedtime Pickup at [facility]/pharmacy #[id number] Unchanged acetaminophen-oxycodone (acetaminophen-oxycodone 325 mg-2.5 mg oral [...] physician if questions or concerns Pharmacy Information [facility]/pharmacy #[id number]: [address], [place] [phone] Allergies Tape (Rash) Problems Ongoing - Any [...] are th (more content not included)... [facility] Office/Clinic Noteon 05-27-2024 Urology Office/Clinic Note Urology Office/Clinic Note Chief Complaint F/U HPI Staff 79 year old female patient here for a follow up. Previous Dx: OAB, urethral stricture and recurrent UTI. S/P Botox done by [facility] 12/03/23. Pt was in patient at [facility] 03/31-04/02. Pt had nath as of 04/02/24. Pt. states Nath was removed about 2 months ago Urine cx 03/31/24: negative, has a positive urine cx 03/23/24 >100,000 cfu/ml (was given keflex) Seen in [facility] ER 04/22/24 acute kidney injury. Pt, would [...] E&M of Est. Patient Moderate 30-39 Min 81938 2. Incomplete bladder emptying (R33.9: Retention of urine, unspecified) Ov 03/04/24 cancelled. Pt ended up in [facility] for rehab. Says while there she was getting Trospium BID. Ended up w UTI 03/23 (E Coli) and failing outpt abx. Admitted 03/31 w retention and SOLO. 875ml out when nath placed. Constipation treated inpt. Failed void trial so dc'd back to [facility] w Nath in place. PCP dc'd nath 04/08. No PVRs done per [facility] staff (we called). Dc'd home from [facility] on 05/07. PVR today 145ml. Ordered: Complex E&M Add on G2211 E&M of Est. Patient Moderate 30-39 Min 88380 3. Other urethral stricture, female (N35.82: Other [...] E&M of Est. Patient Moderate 30-39 Min 48988 4. Recurrent UTI (N39.0: Urinary tract infection, site not specified) Had E Coli UTI 03/23 (see above) and another UTI 04/14/24 (E Coli) Denies sx since early Apr. UA today neg. Ordered: 88684 Measure Post Void residual urine and/or bladder capacity by US- non-imaging Complex E&M Add on G2211 E&M of Est. Patient Moderate 30-39 Min 96293 Urnls Dip Stick Auto w/o Microscopy POC 06061 Orders: trospium, 20 mg = 1 tab(s), Oral, Bedtime, # 90 tab(s), Refills(s) 3, Pharmacy: [facility]/pharmacy #[id number], 165, cm, 05/27/24 11:39:00 EST, Height/Length Dosing, 91, kg, 05/27/24 11:39:00 EST, Weight Dosing Total time spent reviewing previous notes/results/external documents, preparing the chart, conducting the encounter with the patient and family, ordering tests/medications, and documenting the encounter was 30 minutes. extra time spent on phone w [facility] and reviewing admission/ER notes. Follow-up With When Contact Information BRENDA MARIN PA-C, URL Within 6 weeks [address] [place] [address] Business (1) Additional Instructions: Patient [...] mg-2.5 mg (more content not included)... [facility] Comment on above: Result Comment: Elec tronically Signed By: MIAH ROE, BRENDA Poole\.br\Date and Time Signed: 05/27/24 12:25 EST 36on 05-20-2024 36 Peg with [facility] called requesting patient be set up with [facility]. Warehouse Receiver noted that patient has not been seen in clinic and has continually cancelled appointments made. Peg provided new contact information for patient. [facility] 36on 05-16-2024 36 I thought I had writ ten down the name, but I had not, I can call the patient and find out if you'd like, they mentioned that the notes from [facility] were not enough for them for care, I'm sorry [facility] 36 What [facility] raymon led as we are not following her. [facility] 36 [facility] called i n to see if the patient has been seen, informed [facility] that patient was scheduled twice in March,but cancelled both, wants to know if we can still schedule her for a hospital follow up [facility] Basophils Auto (Bld) [#/Vol] on 04-22-2024 Basophils (Bld) [#/Vol] Automated basophil count 0.0-0.1 [facility] Basophils/100 WBC Auto (Bld) on 04-22-2024 Basophils/100 WBC (Bld) Automated basophil % 0. 2-2.0 [facility] Eosinophils/100 WBC Auto (Bl d)on 12-10-2024 Eosinophils/100 WBC (Bld) Automated eosinophil % High 0.9-7.0 [facility] Erythrocyte distribution wid th Auto (RBC) [Ratio]on 04-22-2024 Erythrocyte distribution width (RBC) [Ratio] Erythrocyte distribution width [Ratio] by Automated count High 11.0-15.0 [facility] Estimated glomerular filtrat ion rate (GFR) non- Americanon 04-22-2024 GFR/1.73 sq M.predicted among non-blacks MDRD (S/P/Bld) [Vol rate/Area] Estimated glomerular filtration rate (GFR) non- Low >=60 mL/min/1.7 3m 2 [facility] Hematocrit Auto (Bld) [Volum e fraction]on 04-22-2024 Hematocrit (Bld) [Volume fraction] Hematocrit [Volume Fraction] of Blood by Automated count 36.0-48.0 [facility] Hemoglobin [Mass/volume] in Bloodon 04-22-2024 Hemoglobin (Bld) [Mass/Vol] Hemoglobin [Mass/volume] in Blood Low 12.0-16.0 [facility] INR in Platelet poor plasma by Coagulation assayon 04-22-2024 INR Coag (PPP) [Relative time] INR in Platelet poor plasma by Coagulation assay [facility] Comment on above: DESIRED INR:2.0-3.0 CONDITIONS NOT LISTED BELOW2.5-3.5 FOR PROSTHETIC HEART VALVE REPLACEMENT2.5-3.5 RECURRENT THROMBOSIS Laboratory - Chemistry and C hemistry - challengeon 04-22-2024 Calcium [Mass/Vol] 9.3 mg/dL 8.5-10.1 [facility] Chloride [Moles/Vol] 107 mmol/L 98-107 [facility] CO2 [Moles/Vol] 28.4 mmol/L 21.0-32.0 [facility] Creatinine [Mass/Vol] 1.61 mg/dL High 0.55-1.02 [facility] GFR/1.73 sq M.predicted MDRD (S/P/Bld) [Vol rate/Area] 38 mL/min/{1.73_m2} Low >=60 mL/min/1.7 3m 2 [facility] Glucose [Mass/Vol] 98 mg/dL 74-106 [facility] Potassium [Moles/Vol] 4.9 mmol/L 3.5-5.1 [facility] Sodium [Moles/Vol] 142 mmol/L 136-145 [facility] Urea nitrogen [Mass/Vol] 28.0 mg/dL High 7.0-18.0 [facility] Urea nitrogen/Creatinine [Mass ratio] 17.4 mg/mg [facility] Laboratory - Hematology and Cell countson 04-22-2024 Immature granulocytes/100 WBC (Bld) 0.6 % High 0.0-0.5 [facility] Leukocytes [#/volume] correc kyleigh for nucleated erythrocytes in Blood by Automated counon 04-22-2024 WBC corrected for nucl RBC Auto (Bld) [#/Vol] Leukocytes [#/volume] corrected for nucleated erythrocytes in Blood by Automated coun 4.0-11.0 [facility] Lymphocytes Auto (Bld) [#/Vo l]on 04-22-2024 Lymphocytes (Bld) [#/Vol] Lymphocytes [#/volume] in Blood by Automated count 1.2-3.8 [facility] Lymphocytes/100 WBC Auto (Bl d)on 04-22-2024 Lymphocytes/100 WBC (Bld) Lymphocytes/100 leukocytes in Blood by Automated count 20.5-60.0 [facility] MCH Auto (RBC) [Entitic mass ]on 04-22-2024 MCH (RBC) [Entitic mass] MCH [Entitic mass] by Automated count 26.7-34.0 [facility] MCHC Auto (RBC) [Mass/Vol]on 04-22-2024 MCHC (RBC) [Mass/Vol] MCHC [Mass/volume] by Automated count 29.9-35.2 [facility] MCV Auto (RBC) [Entitic vol] on 04-22-2024 MCV (RBC) [Entitic vol] MCV [Entitic vol ume] by Automated count 81.0-99.0 [facility] Monocytes Auto (Bld) [#/Vol] on 04-22-2024 Monocytes (Bld) [#/Vol] Automated blood monocyte count 0.3-0.8 [facility] Monocytes/100 WBC Auto (Bld) on 04-22-2024 Monocytes/100 WBC (Bld) Automated monocyte % 1. 7-12.0 [facility] Neutrophils Auto (Bld) [#/Vo l]on 04-22-2024 Neutrophils (Bld) [#/Vol] Neutrophils [#/volume] in Blood by Automated count 1.4-6.5 [facility] Neutrophils/100 WBC Auto (Bl d)on 04-22-2024 Neutrophils/100 WBC (Bld) Automated neutrophil % 43.0-75.0 [facility] No Panel Informationon 04-22 Troponin I High Sensitivity 7.3 pg/mL 4.0-51.3 [facility] Comment on above: CUT-OFF POINTS HAVE [...] Eosinophils # (Auto) 0.7 10 3/uL 0.0-0.7 [facility] Immature Granulocyte # (Auto) 0.05 10 3/uL High 0.00-0.03 [facility] Platelet mean volume Auto (B ld) [Entitic vol]on 04-22-2024 Platelet mean volume (Bld) [Entitic vol] Platelet mean volume [Entitic volume] in Blood by Automated count 9.5-13.5 [facility] Platelets Auto (Bld) [#/Vol] on 04-22-2024 Platelets (Bld) [#/Vol] Platelets [#/vol ume] in Blood by Automated count 150-450 [facility] Prothrombin time (PT)on 04-13 PT Coag (PPP) [Time] Prothrombin time (PT) 9.0- 11.6 [facility] RBC Auto (Bld) [#/Vol]on RBC (Bld) [#/Vol] Erythrocytes [#/volu me] in Blood by Automated count Low 4.20-5.40 [facility] Serum or plasma anion gap de terminationon 04-22-2024 Anion gap [Moles/Vol] Serum or plasma an ion gap determination [facility] 36on 04-07-2024 36 Sorry, forgot to put in, she was cancelled because she's still in rehab [facility] 36 Patient's eye is sti ll bothering her from the shingles, Angelicarichy Landa would like a call back at [phone], can leave a detailed message [facility] Telephoneon 04-07-2024 Telephone [phone] Roberto Lewis gildardo Ruby 1945 F Date Provider Department Center 04/07/2024 L[facility]X [facility] INFEC [facility] No family history on file [facility] Alanine aminotransferase [En zymatic activity/volume] in Serum or PlasmaOrdered By: Rosendo Law on 04-01-2024 ALT [Catalytic activity/Vol] Alanine aminotransferase [Enzymatic activity/volume] in Serum or Plasma 52 [facility] Albumin [Mass/volume] in Ser um or Plasma by Bromocresol green (BCG) dye binding methoOrdered By: Rosendo Law on 04-01-2024 Albumin BCG dye [Mass/Vol] Albumin [Mass/volume] in Serum or Plasma by Bromocresol green (BCG) dye binding metho 3.5-5.7 [facility] Alkaline phosphatase [Enzyma tic activity/volume] in Serum or PlasmaOrdered By: Rosnedo Law on 04-01-2024 ALP [Catalytic activity/Vol] Alkaline phosphatase [Enzymatic activity/volume] in Serum or Plasma 34-104 [facility] Aspartate aminotransferase [ Enzymatic activity/volume] in Serum or PlasmaOrdered By: Rosendo Law on 04-01-2024 AST [Catalytic activity/Vol] Aspartate aminotransferase [Enzymatic activity/volume] in Serum or Plasma 13-39 [facility] Basophils Auto (Bld) [#/Vol] Ordered By: Rosendo Law on 04-01-2024 Basophils (Bld) [#/Vol] Automated basophil count 0.0-0.2 [facility] Basophils/100 WBC Auto (Bld) Ordered By: Rosendo Law on 04-01-2024 Basophils/100 WBC (Bld) Automated basophil % . [facility] Bilirubin.total [Mass/volume ] in Serum or PlasmaOrdered By: Rosendo Law on 04-01-2024 Bilirubin [Mass/Vol] Bilirubin.total [Mass/volume] in Serum or Plasma 0.3-1.0 [facility] Calcium [Mass/volume] in Ser um or PlasmaOrdered By: Rosendo Law on 04-01-2024 Calcium [Mass/Vol] Calcium [Mass/volume ] in Serum or Plasma 8.6-10.3 [facility] Carbon dioxide, total [Moles /volume] in Serum or PlasmaOrdered By: Rosendo Law on 04-01-2024 CO2 [Moles/Vol] Carbon dioxide, tota l [Moles/volume] in Serum or Plasma 21.0-31.0 [facility] Chloride [Moles/volume] in S alison or PlasmaOrdered By: Rosendo Law on 04-01-2024 Chloride [Moles/Vol] Chloride [Moles/vol ume] in Serum or Plasma 98-107 [facility] Complete Blood Count Auto Di ffon 04-01-2024 Basophils (Bld) [#/Vol] 0.1 10*3/uL Normal 0.0-0.2 [facility] Comment on above: Result Comment: PERF ORMED BY: [place] [address] PATHOLOGIST SCRAP METAL COLLECTOR CHUY OLIVERA M.D. Performed By: #### C BC, CMP #### [address] Basophils/100 WBC (Bld) 1.3 % Normal . [facility] Comment on above: Performed By: #### C BC, CMP #### [address] Eosinophils (Bld) [#/Vol] 0.7 10*3/uL High 0.0-0.45 [facility] Comment on above: Performed By: #### C BC, CMP #### [address] Eosinophils/100 WBC (Bld) 8.7 % Normal . [facility] Comment on above: Performed By: #### C BC, CMP #### [address] Erythrocyte distribution width (RBC) [Ratio] 18.4 % High 11.9-15.3 [facility] Comment on above: Performed By: #### C BC, CMP #### [address] Hematocrit (Bld) [Volume fraction] 42.0 % Normal 34.0-46.4 [facility] Comment on above: Performed By: #### C BC, CMP #### [address] Hemoglobin (Bld) [Mass/Vol] 13.8 g/dL Normal 11.8-15.4 [facility] Comment on above: Performed By: #### C BC, CMP #### [address] Lymphocytes (Bld) [#/Vol] 2.1 10*3/uL Normal 1.00-4.8 [facility] Comment on above: Performed By: #### C BC, CMP #### [address] Lymphocytes/100 WBC (Bld) 28.1 % Normal . [facility] Comment on above: Performed By: #### C BC, CMP #### [address] MCH (RBC) [Entitic mass] 30.5 pg Normal 24.7-34.3 [facility] Comment on above: Performed By: #### C BC, CMP #### [address] MCV (RBC) [Entitic vol] 92.7 fL Normal 80-100 [facility] Comment on above: Performed By: #### C BC, CMP #### [address] Mean Corpuscular HGB Conc 32.9 g/dL Normal 32.0-35.0 [facility] Comment on above: Performed By: #### C BC, CMP #### [address] Monocytes (Bld) [#/Vol] 0.7 10*3/uL Normal 0.0-0.8 [facility] Comment on above: Performed By: #### C BC, CMP #### [address] Monocytes/100 WBC (Bld) 9.3 % Normal . [facility] Comment on above: Performed By: #### C BC, CMP #### [address] Neutrophils (Bld) [#/Vol] 4.0 10*3/uL Normal 1.8-7.7 [facility] Comment on above: Performed By: #### C BC, CMP #### [address] Neutrophils/100 WBC (Bld) 52.6 % Normal . [facility] Comment on above: Performed By: #### C BC, CMP #### [address] NRBC% 0.1 /100{WBC} Normal 0-0.5 [facility] Comment on above: Performed By: #### C BC, CMP #### [address] Platelet mean volume (Bld) [Entitic vol] 9.7 fL Normal 6.3-10.7 [facility] Comment on above: Performed By: #### C BC, CMP #### [place] [address] [place] Platelets (Bld) [#/Vol] 233 10*3/uL Normal 150-450 [facility] Comment on above: Performed By: #### C BC, CMP #### [place] [address] [place] RBC (Bld) [#/Vol] 4.53 10*6/uL Normal 3.60-5.00 [facility] Comment on above: Performed By: #### C BC, CMP #### [address] WBC (Bld) [#/Vol] 7.5 10*3/uL Normal 3.8-11.6 [facility] Comment on above: Performed By: #### C BC, CMP #### [address] Comprehensive Metabolic Pane meagan 04-01-2024 Albumin [Mass/Vol] 3.5 g/dL Normal 3.5-5.7 [facility] Comment on above: Performed By: #### C BC, CMP #### [address] Albumin/Globulin [Mass ratio] 1.5 {ratio} Normal [facility] Comment on above: Performed By: #### C BC, CMP #### [address] ALP [Catalytic activity/Vol] 56 U/L Normal 34-104 [facility] Comment on above: Performed By: #### C BC, CMP #### [address] ALT [Catalytic activity/Vol] 16 U/L Normal 7-52 [facility] Comment on above: Performed By: #### C BC, CMP #### [address] Anion gap [Moles/Vol] 11.7 mmol/L Normal 6.0-15.0 [facility] Comment on above: Performed By: #### C BC, CMP #### [address] AST [Catalytic activity/Vol] 16 U/L Normal 13-39 [facility] Comment on above: Performed By: #### C BC, CMP #### [address] Bilirubin [Mass/Vol] 0.4 mg/dL Normal 0.3-1.0 [facility] Comment on above: Performed By: #### C BC, CMP #### [address] Calcium [Mass/Vol] 9.6 mg/dL Normal 8.6-10.3 [facility] Comment on above: Performed By: #### C BC, CMP #### [address] Chloride [Moles/Vol] 107 mmol/L Normal 98-107 [facility] Comment on above: Performed By: #### C BC, CMP #### [address] CO2 [Moles/Vol] 26.5 mmol/L Normal 21.0-31.0 [facility] Comment on above: Performed By: #### C BC, CMP #### [address] Creatinine [Mass/Vol] 0.92 mg/dL Normal 0.60-1.20 [facility] Comment on above: Performed By: #### C BC, CMP #### [address] Creatinine Clr Calc Pharmacy 53.39 Normal [facility] Comment on above: Result Comment: PERF ORMED BY: [place] [address] PATHOLOGIST SCRAP METAL COLLECTOR CHUY OLIVERA M.D. Performed By: #### C BC, CMP #### [address] GFR/1.73 sq M.predicted MDRD (S/P/Bld) [Vol rate/Area] mL/min/{1.73_m2} Normal [facility] Comment on above: Performed By: #### C BC, CMP #### [address] Globulin (S) [Mass/Vol] 2.3 g/dL Normal [facility] Comment on above: Performed By: #### C BC, CMP #### [address] [place] [address] [place] Glucose [Mass/Vol] 82 mg/dL Normal 70-100 [facility] Comment on above: Result Comment: [place] Glucose Reference Range is dependent on time and content of last meal. Glucose of more than 200 mg/dL in a nonstressed, ambulatory subject supports the diagnosis of Diabetes Mellitus. ADA recommended reference range Performed By: #### C BC, CMP #### [address] Potassium [Moles/Vol] 4.2 mmol/L Normal 3.5-5.1 [facility] Comment on above: Performed By: #### C BC, CMP #### [address] Protein [Mass/Vol] 5.8 g/dL Low 6.4-8.9 [facility] Comment on above: Performed By: #### C BC, CMP #### [address] Sodium [Moles/Vol] 141 mmol/L Normal 136-145 [facility] Comment on above: Performed By: #### C BC, CMP #### [place] [address] [place] Urea nitrogen [Mass/Vol] 13 mg/dL Normal 7-25 [facility] Comment on above: Performed By: #### C BC, CMP #### [place] [address] [place] Creatinine [Mass/volume] in Serum or PlasmaOrdered By: Rosedno Law on 04-01-2024 Creatinine [Mass/Vol] Creatinine [Mass/v olume] in Serum or Plasma 0.60-1.20 [facility] Eosinophils Auto (Bld) [#/Vo l]Ordered By: Rosendo Law on 04-01-2024 Eosinophils (Bld) [#/Vol] Automated eosinophil count High 0.0-0.45 [facility] Eosinophils/100 WBC Auto (Bl d)Ordered By: Rosendo Law on 04-01-2024 Eosinophils/100 WBC (Bld) Automated eosinophil % . [facility] Erythrocyte distribution wid th Auto (RBC) [Ratio]Ordered By: Rosendo Law on 04-01-2024 Erythrocyte distribution width (RBC) [Ratio] Erythrocyte distribution width [Ratio] by Automated count High 11.9-15.3 [facility] Globulin Calc (S) [Mass/Vol] Ordered By: Rosendo Law on 04-01-2024 Globulin (S) [Mass/Vol] Serum globulin measurement by calculation (mass/volume) [facility] Glucose [Mass/volume] in Ser um or PlasmaOrdered By: Rosendo Law on 04-01-2024 Glucose [Mass/Vol] Glucose [Mass/volume ] in Serum or Plasma 70-100 [facility] Comment on above: ADA recommended refe rence rangeRandom Glucose Reference Range is dependent on time and content of last meal. Glucose of more than 200 mg/dL in a nonstressed, ambulatory subject supports the diagnosis of Diabetes Mellitus. Hematocrit Auto (Bld) [Volum e fraction]Ordered By: Rosendo Law on 04-01-2024 Hematocrit (Bld) [Volume fraction] Hematocrit [Volume Fraction] of Blood by Automated count 34.0-46.4 [facility] Hemoglobin [Mass/volume] in BloodOrdered By: Rosendo Law on 04-01-2024 Hemoglobin (Bld) [Mass/Vol] Hemoglobin [Mass/volume] in Blood 11.8-15.4 [facility] Leukocytes [#/volume] correc kyleigh for nucleated erythrocytes in Blood by Automated counOrdered By: Rosendo Law on 04-01-2024 WBC corrected for nucl RBC Auto (Bld) [#/Vol] Leukocytes [#/volume] corrected for nucleated erythrocytes in Blood by Automated coun 3.8-11.6 [facility] Lymphocytes Auto (Bld) [#/Vo l]Ordered By: Rosendo Law on 04-01-2024 Lymphocytes (Bld) [#/Vol] Lymphocytes [#/volume] in Blood by Automated count 1.00-4.8 [facility] Lymphocytes/100 WBC Auto (Bl d)Ordered By: Rosendo Law on 04-01-2024 Lymphocytes/100 WBC (Bld) Lymphocytes/100 leukocytes in Blood by Automated count . [facility] MCH Auto (RBC) [Entitic mass ]Ordered By: Rosendo Law on 04-01-2024 MCH (RBC) [Entitic mass] MCH [Entitic mass] by Automated count 24.7-34.3 [facility] MCHC Auto (RBC) [Mass/Vol]Or dered By: Rosendo Law on 04-01-2024 MCHC (RBC) [Mass/Vol] MCHC [Mass/volume] by Automated count 32.0-35.0 [facility] MCV Auto (RBC) [Entitic vol] Ordered By: Rosendo Law on 04-01-2024 MCV (RBC) [Entitic vol] MCV [Entitic vol ume] by Automated count 80-100 [facility] Monocytes Auto (Bld) [#/Vol] Ordered By: Rosendo Law on 04-01-2024 Monocytes (Bld) [#/Vol] Automated blood monocyte count 0.0-0.8 [facility] Monocytes/100 WBC Auto (Bld) Ordered By: Rosendo Law on 04-01-2024 Monocytes/100 WBC (Bld) Automated monocyte % . [facility] Neutrophils Auto (Bld) [#/Vo l]Ordered By: Rosendo Law on 04-01-2024 Neutrophils (Bld) [#/Vol] Neutrophils [#/volume] in Blood by Automated count 1.8-7.7 [facility] Neutrophils/100 WBC Auto (Bl d)Ordered By: Rosendo Law on 04-01-2024 Neutrophils/100 WBC (Bld) Automated neutrophil % . [facility] No Panel InformationOrdered By: Rosendo Law on 04-01-2024 Estimated GFR (CKD-EPI) > 60.0 mL/Min [facility] Creatinine Clearance (Chem 53.39 [facility] Nucleated erythrocytes [Pres ence] in Blood by Automated countOrdered By: Rosendo Law on 04-01-2024 Nucleated RBC Auto Ql (Bld) Nucleated erythrocytes [Presence] in Blood by Automated count 0-0.5 [facility] Platelet mean volume Auto (B ld) [Entitic vol]Ordered By: Rosendo Law on 04-01-2024 Platelet mean volume (Bld) [Entitic vol] Platelet mean volume [Entitic volume] in Blood by Automated count 6.3-10.7 [facility] Platelets Auto (Bld) [#/Vol] Ordered By: Rosendo Law on 04-01-2024 Platelets (Bld) [#/Vol] Platelets [#/vol ume] in Blood by Automated count 150-450 [facility] Potassium [Moles/volume] in Serum or PlasmaOrdered By: Rosendo Law on 04-01-2024 Potassium [Moles/Vol] Potassium [Moles/v olume] in Serum or Plasma 3.5-5.1 [facility] Protein [Mass/volume] in Ser um or PlasmaOrdered By: Rosendo Law on 04-01-2024 Protein [Mass/Vol] Protein [Mass/volume ] in Serum or Plasma Low 6.4-8.9 [facility] RBC Auto (Bld) [#/Vol]Ordere d By: Rosendo Law on 04-01-2024 RBC (Bld) [#/Vol] Erythrocytes [#/volu me] in Blood by Automated count 3.60-5.00 [facility] Serum or plasma albumin/glob ulin mass ratioOrdered By: Rosendo Law on 04-01-2024 Albumin/Globulin [Mass ratio] Serum or plasma albumin/globulin mass ratio [facility] Serum or plasma anion gap de terminationOrdered By: Rosendo Law on 04-01-2024 Anion gap [Moles/Vol] Serum or plasma an ion gap determination 6.0-15.0 [facility] Sodium [Moles/volume] in Ser um or PlasmaOrdered By: Rosendo Law on 04-01-2024 Sodium [Moles/Vol] Sodium [Moles/volume ] in Serum or Plasma 136-145 [facility] Urea nitrogen [Mass/volume] in Serum or PlasmaOrdered By: Rosendo Law on 04-01-2024 Urea nitrogen [Mass/Vol] Urea nitrogen [Mass/volume] in Serum or Plasma 7-25 [facility] WBC Auto (Bld) [#/Vol]Ordere d By: Rosendo Law on 04-01-2024 WBC (Bld) [#/Vol] Leukocytes [#/volume ] in Blood by Automated count 3.8-11.6 [facility] Alanine aminotransferase [En zymatic activity/volume] in Serum or PlasmaOrdered By: Jarad Vargas on 03-31-2024 ALT [Catalytic activity/Vol] Alanine aminotransferase [Enzymatic activity/volume] in Serum or Plasma 7-52 [facility] Albumin [Mass/volume] in Ser um or Plasma by Bromocresol green (BCG) dye binding methoOrdered By: Jarad Vargas on 03-31-2024 Albumin BCG dye [Mass/Vol] Albumin [Mass/volume] in Serum or Plasma by Bromocresol green (BCG) dye binding metho 3.5-5.7 [facility] Alkaline phosphatase [Enzyma tic activity/volume] in Serum or PlasmaOrdered By: Jarad Vargas on 03-31-2024 ALP [Catalytic activity/Vol] Alkaline phosphatase [Enzymatic activity/volume] in Serum or Plasma 34-104 [facility] Appearance of UrineOrdered B y: Jarad Vargas on 03-31-2024 Appearance (U) Urine appearance Clear [facility] Aspartate aminotransferase [ Enzymatic activity/volume] in Serum or PlasmaOrdered By: Jarad Vargas on 03-31-2024 AST [Catalytic activity/Vol] Aspartate aminotransferase [Enzymatic activity/volume] in Serum or Plasma 13-39 [facility] Bacteria [Presence] in Urine by AutomatedOrdered By: Jarad Vargas on 03-31-2024 Bacteria Auto Ql (U) Bacteria [Presence] in Urine by Automated None Seen [facility] Basic Metabolic Panelon 03-14 Anion gap [Moles/Vol] 14.3 mmol/L Normal 6.0-15.0 [facility] Comment on above: Performed By: #### H S TROP, CUBLD, PTT, PT, [id number], [id number], LIPASE, TSH3, BMP, HEPATIC, CBC, CK, LACTIC ####[facility] [id number] Calcium [Mass/Vol] 9.7 mg/dL Normal 8.6-10.3 [facility] Comment on above: Performed By: #### H S TROP, CUBLD, PTT, PT, [id number], [id number], LIPASE, TSH3, BMP, HEPATIC, CBC, CK, LACTIC ####[facility] [place] [id number] [facility] Chloride [Moles/Vol] 108 mmol/L High 98-107 [facility] Comment on above: Performed By: #### H S TROP, CUBLD, PTT, PT, [id number], [id number], LIPASE, TSH3, BMP, HEPATIC, CBC, CK, LACTIC ####[address] CO2 [Moles/Vol] 25.5 mmol/L Normal 21.0-31.0 [facility] Comment on above: Performed By: #### H S TROP, CUBLD, PTT, PT, [id number], [id number], LIPASE, TSH3, BMP, HEPATIC, CBC, CK, LACTIC ####[address] Creatinine [Mass/Vol] 1.17 mg/dL Normal 0.60-1.20 [facility] Comment on above: Performed By: #### H S TROP, CUBLD, PTT, PT, [id number], [id number], LIPASE, TSH3, BMP, HEPATIC, CBC, CK, LACTIC ####[address] Creatinine Clr Calc Pharmacy 43.86 Normal [facility] Comment on above: Performed By: #### H S TROP, CUBLD, PTT, PT, [id number], [id number], LIPASE, TSH3, BMP, HEPATIC, CBC, CK, LACTIC ####[address] Estimated GFR 48.060 mL/Min Normal [facility] Comment on above: Performed By: #### H S TROP, CUBLD, PTT, PT, [id number], [id number], LIPASE, TSH3, BMP, HEPATIC, CBC, CK, LACTIC ####[address] Glucose [Mass/Vol] 93 mg/dL Normal 70-100 [facility] Comment on above: Result Comment: [place] Glucose Reference Range is dependent on time and content of last meal. Glucose of more than 200 mg/dL in a nonstressed, ambulatory subject supports the diagnosis of Diabetes Mellitus. ADA recommended reference range Performed By: #### H S TROP, CUBLD, PTT, PT, [id number], [id number], LIPASE, TSH3, BMP, HEPATIC, CBC, CK, LACTIC ####[place] [id number] [address] Potassium [Moles/Vol] 3.8 mmol/L Normal 3.5-5.1 [facility] Comment on above: Performed By: #### H S TROP, CUBLD, PTT, PT, [id number], [id number], LIPASE, TSH3, BMP, HEPATIC, CBC, CK, LACTIC ####[place] [id number] [address] Sodium [Moles/Vol] 144 mmol/L Normal 136-145 [facility] Comment on above: Performed By: #### H S TROP, CUBLD, PTT, PT, [id number], [id number], LIPASE, TSH3, BMP, HEPATIC, CBC, CK, LACTIC ####[place] [id number] [address] Urea nitrogen [Mass/Vol] 19 mg/dL Normal 7-25 [facility] Comment on above: Performed By: #### H S TROP, CUBLD, PTT, PT, [id number], [id number], LIPASE, TSH3, BMP, HEPATIC, CBC, CK, LACTIC ####[address] Basophils Auto (Bld) [#/Vol] Ordered By: Jarad Vargas on 03-31-2024 Basophils (Bld) [#/Vol] Automated basophil count 0.0-0.2 [facility] Basophils/100 WBC Auto (Bld) Ordered By: Jarad Vargas on 03-31-2024 Basophils/100 WBC (Bld) Automated basophil % . [facility] Bilirubin Test strip Ql (U)O rdered By: Jarad Vargas on 03-31-2024 Bilirubin Ql (U) Bilirubin.total [Presence] in Urine by Test strip Negative [facility] Bilirubin.direct [Mass/volum e] in Serum or PlasmaOrdered By: Jarad Vargas on 03-31-2024 Bilirubin.direct [Mass/Vol] Bilirubin.direct [Mass/volume] in Serum or Plasma 0.03-0.18 [facility] Bilirubin.total [Mass/volume ] in Serum or PlasmaOrdered By: Jaard Vargas on 03-31-2024 Bilirubin [Mass/Vol] Bilirubin.total [Mass/volume] in Serum or Plasma 0.3-1.0 [facility] Blood Cultureon 03-31-2024 Bacteria identified Cx Nom (Bld) NO GROWTH 5 DAYS PERFORMED BY: [place] [address] PATHOLOGIST SCRAP METAL COLLECTOR CHUY OLIVERA M.D. Normal [facility] Comment on above: Performed By: #### H S TROP, CUBLD, PTT, PT, [id number], [id number], LIPASE, TSH3, BMP, HEPATIC, CBC, CK, LACTIC ####[place] [id number] [facility] Bacteria identified Cx Nom (Bld) NO GROWTH 5 DAYS PERFORMED BY: [place] [address] PATHOLOGIST SCRAP METAL COLLECTOR CHUY OLIVERA M.D. Normal [facility] Comment on above: Performed By: #### H S TROP, CUBLD, PTT, PT, [id number], [id number], LIPASE, TSH3, BMP, HEPATIC, CBC, CK, LACTIC ####[place] [id number] [facility] CT abdomen pelvis w conon CT abdomen pelvis w con [facility] [place] [address] CT Scan Report Signed Patient: Aaron Lewis MR#: [id number] : 1945 Acct:[id number] Age/Sex: 79 / F ADM Date: 03/31/24 Loc: ER Room: Type: [facility] ER Attending Dr: Copies to: Jarad Vargas DO Ordering Provider: Jarad Vargas DO Date of Service: 03/31/24 CT/CT abdomen pelvis w con: ams lower abd/back pain ([id number]) CT/CT head/brain wo con: ams Unenhanced head [...] Emil Martin M.D.03/31/2024 10:02 AM Dictation Location: [place] [address] Transcribed By: [facility] 03/31/24 1002 Dictated By: Emil Martin DO 03/31/24 0952 Signed By: 03/31/24 1002 Normal [facility] Calcium [Mass/volume] in Ser um or PlasmaOrdered By: Jarad Vargas on 03-31-2024 Calcium [Mass/Vol] Calcium [Mass/volume ] in Serum or Plasma 8.6-10.3 [facility] Carbon dioxide, total [Moles /volume] in Serum or PlasmaOrdered By: Jarad Vargas on 03-31-2024 CO2 [Moles/Vol] Carbon dioxide, tota l [Moles/volume] in Serum or Plasma 21.0-31.0 [facility] Chloride [Moles/volume] in S alison or PlasmaOrdered By: Jarad Vargas on 03-31-2024 Chloride [Moles/Vol] Chloride [Moles/vol ume] in Serum or Plasma High 98-107 [facility] Color Auto (U)Ordered By: Nelson Vargas on 03-31-2024 Color (U) Color of Urine by Auto Yellow Fi [facility] Complete Blood Count Auto Di ffon 03-31-2024 Basophils (Bld) [#/Vol] 0.1 10*3/uL Normal 0.0-0.2 [facility] Comment on above: Result Comment: PERF ORMED BY: [facility] [address] [place] [address] PATHOLOGIST SCRAP METAL COLLECTOR CHUY OLIVERA M.D. Performed By: #### H S TROP, CUBLD, PTT, PT, [id number], [id number], LIPASE, TSH3, BMP, HEPATIC, CBC, CK, LACTIC ####[facility] [place] [address] [facility] Basophils/100 WBC (Bld) 1.1 % Normal . [facility] Comment on above: Performed By: #### H S TROP, CUBLD, PTT, PT, [id number], [id number], LIPASE, TSH3, BMP, HEPATIC, CBC, CK, LACTIC ####[facility] [address] Eosinophils (Bld) [#/Vol] 0.2 10*3/uL Normal 0.0-0.45 [facility] Comment on above: Performed By: #### H S TROP, CUBLD, PTT, PT, [id number], [id number], LIPASE, TSH3, BMP, HEPATIC, CBC, CK, LACTIC ####[address] Eosinophils/100 WBC (Bld) 2.6 % Normal . [facility] Comment on above: Performed By: #### H S TROP, CUBLD, PTT, PT, [id number], [id number], LIPASE, TSH3, BMP, HEPATIC, CBC, CK, LACTIC ####[address] Erythrocyte distribution width (RBC) [Ratio] 18.1 % High 11.9-15.3 [facility] Comment on above: Performed By: #### H S TROP, CUBLD, PTT, PT, [id number], [id number], LIPASE, TSH3, BMP, HEPATIC, CBC, CK, LACTIC ####[address] Hematocrit (Bld) [Volume fraction] 40.7 % Normal 34.0-46.4 [facility] Comment on above: Performed By: #### H S TROP, CUBLD, PTT, PT, [id number], [id number], LIPASE, TSH3, BMP, HEPATIC, CBC, CK, LACTIC ####[address] Hemoglobin (Bld) [Mass/Vol] 13.3 g/dL Normal 11.8-15.4 [facility] Comment on above: Performed By: #### H S TROP, CUBLD, PTT, PT, [id number], [id number], LIPASE, TSH3, BMP, HEPATIC, CBC, CK, LACTIC ####[address] Lymphocytes (Bld) [#/Vol] 1.3 10*3/uL Normal 1.00-4.8 [facility] Comment on above: Performed By: #### H S TROP, CUBLD, PTT, PT, [id number], [id number], LIPASE, TSH3, BMP, HEPATIC, CBC, CK, LACTIC ####[address] Lymphocytes/100 WBC (Bld) 19.2 % Normal . [facility] Comment on above: Performed By: #### H S TROP, CUBLD, PTT, PT, [id number], [id number], LIPASE, TSH3, BMP, HEPATIC, CBC, CK, LACTIC ####[address] MCH (RBC) [Entitic mass] 30.4 pg Normal 24.7-34.3 [facility] Comment on above: Performed By: #### H S TROP, CUBLD, PTT, PT, [id number], [id number], LIPASE, TSH3, BMP, HEPATIC, CBC, CK, LACTIC ####[address] MCV (RBC) [Entitic vol] 93.5 fL Normal 80-100 [facility] Comment on above: Performed By: #### H S TROP, CUBLD, PTT, PT, [id number], [id number], LIPASE, TSH3, BMP, HEPATIC, CBC, CK, LACTIC ####[address] Mean Corpuscular HGB Conc 32.6 g/dL Normal 32.0-35.0 [facility] Comment on above: Performed By: #### H S TROP, CUBLD, PTT, PT, [id number], [id number], LIPASE, TSH3, BMP, HEPATIC, CBC, CK, LACTIC ####[address] Monocytes (Bld) [#/Vol] 0.6 10*3/uL Normal 0.0-0.8 [facility] Comment on above: Performed By: #### H S TROP, CUBLD, PTT, PT, [id number], [id number], LIPASE, TSH3, BMP, HEPATIC, CBC, CK, LACTIC ####[address] Monocytes/100 WBC (Bld) 19.18 % Normal 0.00-20.00 [facility] Comment on above: Performed By: #### H S TROP, CUBLD, PTT, PT, [id number], [id number], LIPASE, TSH3, BMP, HEPATIC, CBC, CK, LACTIC ####[address] Monocytes/100 WBC (Bld) 8.9 % Normal . [facility] Comment on above: Performed By: #### H S TROP, CUBLD, PTT, PT, [id number], [id number], LIPASE, TSH3, BMP, HEPATIC, CBC, CK, LACTIC ####[address] Neutrophils (Bld) [#/Vol] 4.7 10*3/uL Normal 1.8-7.7 [facility] Comment on above: Performed By: #### H S TROP, CUBLD, PTT, PT, [id number], [id number], LIPASE, TSH3, BMP, HEPATIC, CBC, CK, LACTIC ####[address] Neutrophils/100 WBC (Bld) 68.2 % Normal . [facility] Comment on above: Performed By: #### H S TROP, CUBLD, PTT, PT, [id number], [id number], LIPASE, TSH3, BMP, HEPATIC, CBC, CK, LACTIC ####[address] NRBC% 0.1 /100{WBC} Normal 0-0.5 [facility] Comment on above: Performed By: #### H S TROP, CUBLD, PTT, PT, [id number], [id number], LIPASE, TSH3, BMP, HEPATIC, CBC, CK, LACTIC ####[address] Platelet mean volume (Bld) [Entitic vol] 9.6 fL Normal 6.3-10.7 [facility] Comment on above: Performed By: #### H S TROP, CUBLD, PTT, PT, [id number], [id number], LIPASE, TSH3, BMP, HEPATIC, CBC, CK, LACTIC ####[address] Platelets (Bld) [#/Vol] 253 10*3/uL Normal 150-450 [facility] Comment on above: Performed By: #### H S TROP, CUBLD, PTT, PT, [id number], [id number], LIPASE, TSH3, BMP, HEPATIC, CBC, CK, LACTIC ####[address] RBC (Bld) [#/Vol] 4.36 10*6/uL Normal 3.60-5.00 [facility] Comment on above: Performed By: #### H S TROP, CUBLD, PTT, PT, [id number], [id number], LIPASE, TSH3, BMP, HEPATIC, CBC, CK, LACTIC ####[address] WBC (Bld) [#/Vol] 6.8 10*3/uL Normal 3.8-11.6 [facility] Comment on above: Performed By: #### H S TROP, CUBLD, PTT, PT, [id number], [id number], LIPASE, TSH3, BMP, HEPATIC, CBC, CK, LACTIC ####[address] Creatine Kinaseon 03-31-2024 CK [Catalytic activity/Vol] 23 U/L Low 30-223 [facility] Comment on above: Performed By: #### H S TROP, CUBLD, PTT, PT, [id number], [id number], LIPASE, TSH3, BMP, HEPATIC, CBC, CK, LACTIC ####[address] [place] [address] [place] Creatine kinase [Enzymatic a ctivity/volume] in Serum or PlasmaOrdered By: Jarad Vargas on 03-31-2024 CK [Catalytic activity/Vol] Creatine kinase [Enzymatic activity/volume] in Serum or Plasma Low 30-223 [facility] Creatinine [Mass/volume] in Serum or PlasmaOrdered By: Jarad Vargas on 03-31-2024 Creatinine [Mass/Vol] Creatinine [Mass/v olume] in Serum or Plasma 0.60-1.20 [facility] Dipstick and Microscopicon 1 05-31-2023 Appearance (U) Clear Normal Clear [facility] Comment on above: Order Comment: Name Collection Type:: Straight Catheter Performed By: #### A DDONUAPLUS, CUU #### [address] Bacteria,Urine None Seen Normal None Seen [facility] Comment on above: Order Comment: Name Collection Type:: Straight Catheter Performed By: #### A DDONUAPLUS, CUU #### [address] Bilirubin,Urine Negative Normal Negative [facility] Comment on above: Order Comment: Name Collection Type:: Straight Catheter Performed By: #### A DDONUAPLUS, CUU #### [address] Color (U) Light-Yellow Normal Yellow [facility] Comment on above: Order Comment: Name Collection Type:: Straight Catheter Performed By: #### A DDONUAPLUS, CUU #### [address] Glucose Ql (U) Normal Normal Normal [facility] Comment on above: Order Comment: Name Collection Type:: Straight Catheter Performed By: #### A DDONUAPLUS, CUU #### [place] [address] [place] Hyaline Casts,Urine 0 [LPF] Normal 0-8 [facility] Comment on above: Order Comment: Name Collection Type:: Straight Catheter Performed By: #### A DDONUAPLUS, CUU #### [address] Ketones Ql (U) Negative Normal Negative [facility] Comment on above: Order Comment: Name Collection Type:: Straight Catheter Performed By: #### A DDONUAPLUS, CUU #### [address] Leukocyte esterase Test strip Ql (U) 2+ High Negative [facility] Comment on above: Order Comment: Name Collection Type:: Straight Catheter Performed By: #### A DDONUAPLUS, CUU #### [place] [address] [place] Mucus,Urine Rare Normal [facility] Comment on above: Order Comment: Name Collection Type:: Straight Catheter Result Comment: PERF ORMED BY: [place] [address] PATHOLOGIST SCRAP METAL COLLECTOR CHUY OLIVERA M.D. Performed By: #### A DDONUAPLUS, CUU #### [address] Nitrite,Urine Negative Normal Negative [facility] Comment on above: Order Comment: Name Collection Type:: Straight Catheter Performed By: #### A DDONUAPLUS, CUU #### [address] [address] Occult Blood,Urine Negative Normal Negative [facility] Comment on above: Order Comment: Name Collection Type:: Straight Catheter Result Comment: PERF ORMED BY: [place] [address] PATHOLOGIST SCRAP METAL COLLECTOR CHUY OLIVERA M.D. Performed By: #### A DDONUAPLUS, CUU #### [place] [address] [place] pH (U) 6.0 [pH] Normal 5.0-9.0 [facility] Comment on above: Order Comment: Name Collection Type:: Straight Catheter Performed By: #### A DDONUAPLUS, CUU #### [place] [address] [place] Protein,Urine Negative Normal Negative [facility] Comment on above: Order Comment: Name Collection Type:: Straight Catheter Performed By: #### A DDONUAPLUS, CUU #### [place] [address] [place] RBC,Urine 1 [HPF] Normal 0-4 [facility] Comment on above: Order Comment: Name Collection Type:: Straight Catheter Performed By: #### A DDONUAPLUS, CUU #### [place] [address] [place] Specificy [place],Urine 1.011 Normal 1.00 1-1.03 0 [facility] Comment on above: Order Comment: Name Collection Type:: Straight Catheter Performed By: #### A DDONUAPLUS, CUU #### [address] Squamous Epithelial Cell,Urine 1 [HPF] Normal 0-2 [facility] Comment on above: Order Comment: Name Collection Type:: Straight Catheter Performed By: #### A DDONUAPLUS, CUU #### [place] [address] [place] Urobilinogen,Urine Normal Normal Normal [facility] Comment on above: Order Comment: Name Collection Type:: Straight Catheter Performed By: #### A DDONUAPLUS, CUU #### [place] [address] [place] WBC,Urine 5 [HPF] High 0-4 [facility] Comment on above: Order Comment: Name Collection Type:: Straight Catheter Performed By: #### A DDONUAPLUS, CUU #### [place] [address] [place] ECG 12 lead ECGon 03-31-2024 ECG 12 lead ECG [facility] [place] [address] [place] [address] Electrocardiograph Report Signed Patient: Aaron Lewis MR#: [id number] : 1945 Acct:[id number] Age/Sex: 79 / F ADM Date: 03/31/24 Loc: Room: [address] [place] [address] Type: ADM IN Attending Dr: Rosendo Law [...] voltage QRS Confirmed by Jarad VARGAS DO ([id number]) on 03/31/2024 1:58:59 PM Referred By: Electronically Signed By: Jarad VARGAS DO Transcribed By: MUS Signed By Jarad Vargas DO 1 05/31/23 1359 Normal [facility] Eosinophils Auto (Bld) [#/Vo l]Ordered By: Jarad Vargas on 03-31-2024 Eosinophils (Bld) [#/Vol] Automated eosinophil count 0.0-0.45 [facility] Eosinophils/100 WBC Auto (Bl d)Ordered By: Jarad Vargas on 03-31-2024 Eosinophils/100 WBC (Bld) Automated eosinophil % . [facility] Epithelial cells.squamous [# /area] in Urine sediment by Automated countOrdered By: Jarad Vargas on 03-31-2024 Epithelial cells.squamous Auto (Urine sed) [#/Area] Epithelial cells.squamous [#/area] in Urine sediment by Automated count 0-2 [facility] Erythrocyte distribution wid th Auto (RBC) [Ratio]Ordered By: Jarad Vargas on 03-31-2024 Erythrocyte distribution width (RBC) [Ratio] Erythrocyte distribution width [Ratio] by Automated count High 11.9-15.3 [facility] Erythrocytes [#/area] in Uri ne sediment by Automated countOrdered By: Jarad Vargas on 03-31-2024 RBC Auto (Urine sed) [#/Area] Erythrocytes [#/area] in Urine sediment by Automated count 0-4 [facility] Folate [Mass/volume] in Seru m or PlasmaOrdered By: Rosendo Law on 03-31-2024 Folate [Mass/Vol] Folate [Mass/volume] in Serum or Plasma >5.9 [facility] Comment on above: Folate reference ran ge: >5.9 ng/mlThe WHO technical consultation on folate and vitamin [id number] has determined that folate concentrations lessthan 4 ng/ml are considered deficient. Globulin Calc (S) [Mass/Vol] Ordered By: Jarad Vargas on 03-31-2024 Globulin (S) [Mass/Vol] Serum globulin measurement by calculation (mass/volume) [facility] Glucose Glucometer (BldC) [M ass/Vol]Ordered By: Jarad Vargas on 03-31-2024 Glucose [Mass/Vol] Capillary blood gluc ose measurement by glucometer (mass/volume) [facility] Comment on above: Random Glucose Refer ence Range is dependent on time and content of last meal. Glucose of more than 200 mg/dL in a nonstressed, ambulatory subject supports the diagnosis of Diabetes Mellitus. Glucose Poct Glucometerson 1 05-31-2023 Glucose [Mass/Vol] 91 mg/dL Normal [facility] Comment on above: Result Comment: [place] Glucose Reference Range is dependent on time and content of last meal. Glucose of more than 200 mg/dL in a nonstressed, ambulatory subject supports the diagnosis of Diabetes Mellitus. PERFORMED BY: [facility] [address] [facility] [address] PATHOLOGIST SCRAP METAL COLLECTOR CHUY OLIVERA M.D. Performed By: #### G LUTAMI ####Point of Care testing, Glucose [Mass/volume] in Ser um or PlasmaOrdered By: Jarad Vargas on 03-31-2024 Glucose [Mass/Vol] Glucose [Mass/volume ] in Serum or Plasma 70-100 [facility] Comment on above: ADA recommended refe [...] [Mass/volume] in Urine by Test strip Normal [facility] Hematocrit Auto (Bld) [Volum e fraction]Ordered By: Jarad Vargas on 03-31-2024 Hematocrit (Bld) [Volume fraction] Hematocrit [Volume Fraction] of Blood by Automated count 34.0-46.4 [facility] Hemoglobin Test strip Ql (U) Ordered By: Jarad Vargas on 03-31-2024 Hemoglobin Ql (U) Hemoglobin [Presence ] in Urine by Test strip Negative [facility] Hemoglobin [Mass/volume] in BloodOrdered By: Jarad Vargas on 03-31-2024 Hemoglobin (Bld) [Mass/Vol] Hemoglobin [Mass/volume] in Blood 11.8-15.4 [facility] Hepatic Panelon 03-31-2024 Albumin [Mass/Vol] 3.5 g/dL Normal 3.5-5.7 [facility] Comment on above: Performed By: #### H S TROP, CUBLD, PTT, PT, [id number], [id number], LIPASE, TSH3, BMP, HEPATIC, CBC, CK, LACTIC ####[address] Albumin/Globulin [Mass ratio] 1.6 {ratio} Normal [facility] Comment on above: Performed By: #### H S TROP, CUBLD, PTT, PT, [id number], [id number], LIPASE, TSH3, BMP, HEPATIC, CBC, CK, LACTIC ####[address] ALP [Catalytic activity/Vol] 57 U/L Normal 34-104 [facility] Comment on above: Performed By: #### H S TROP, CUBLD, PTT, PT, [id number], [id number], LIPASE, TSH3, BMP, HEPATIC, CBC, CK, LACTIC ####[address] ALT [Catalytic activity/Vol] 17 U/L Normal 7-52 [facility] Comment on above: Performed By: #### H S TROP, CUBLD, PTT, PT, [id number], [id number], LIPASE, TSH3, BMP, HEPATIC, CBC, CK, LACTIC ####[address] AST [Catalytic activity/Vol] 14 U/L Normal 13-39 [facility] Comment on above: Performed By: #### H S TROP, CUBLD, PTT, PT, [id number], [id number], LIPASE, TSH3, BMP, HEPATIC, CBC, CK, LACTIC ####[address] Bilirubin [Mass/Vol] 0.4 mg/dL Normal 0.3-1.0 [facility] Comment on above: Performed By: #### H S TROP, CUBLD, PTT, PT, [id number], [id number], LIPASE, TSH3, BMP, HEPATIC, CBC, CK, LACTIC ####[address] Bilirubin,Indirect 0.3 mg/dL Normal [facility] Comment on above: Performed By: #### H S TROP, CUBLD, PTT, PT, [id number], [id number], LIPASE, TSH3, BMP, HEPATIC, CBC, CK, LACTIC ####[address] Bilirubin.indirect [Mass/Vol] 0.10 mg/dL Normal 0.03-0.18 [facility] Comment on above: Performed By: #### H S TROP, CUBLD, PTT, PT, [id number], [id number], LIPASE, TSH3, BMP, HEPATIC, CBC, CK, LACTIC ####[address] Globulin (S) [Mass/Vol] 2.2 g/dL Normal [facility] Comment on above: Performed By: #### H S TROP, CUBLD, PTT, PT, [id number], [id number], LIPASE, TSH3, BMP, HEPATIC, CBC, CK, LACTIC ####[address] Protein [Mass/Vol] 5.7 g/dL Low 6.4-8.9 [facility] Comment on above: Performed By: #### H S TROP, CUBLD, PTT, PT, [id number], [id number], LIPASE, TSH3, BMP, HEPATIC, CBC, CK, LACTIC ####[facility] [id number] [place] [address] [facility] Hyaline casts [#/area] in Ur ine sediment by Automated countOrdered By: Jarad Vargas on 03-31-2024 Hyaline casts Auto (Urine sed) [#/Area] Hyaline casts [#/area] in Urine sediment by Automated count 0-8 [facility] INR in Platelet poor plasma by Coagulation assayOrdered By: Jarad Vargas on 03-31-2024 INR Coag (PPP) [Relative time] INR in Platelet poor plasma by Coagulation assay [facility] Comment on above: INR Therapeutic Rang [...] i n Urine by Test strip Negative [facility] Laboratory - Microbiology an d Antimicrobial susceptibilityOrdered By: Jarad Vargas on 03-31-2024 Bacteria identified Cx Nom (Bld) NO GROWTH 5 DAYS [facility] Bacteria identified Cx Nom (Bld) NO GROWTH 5 DAYS [facility] Lactate [Moles/volume] in Se rum or PlasmaOrdered By: Jarad Vargas on 03-31-2024 Lactate [Moles/Vol] Lactate [Moles/volum e] in Serum or Plasma 0.5-2.2 [facility] Lactic Acidon 03-31-2024 Lactate [Moles/Vol] 1.2 mmol/L Normal 0.5-2.2 [facility] Comment on above: Result Comment: PERF ORMED BY: [facility] [address] [address] PATHOLOGIST SCRAP METAL COLLECTOR CHUY OLIVERA M.D. Performed By: #### H S TROP, CUBLD, PTT, PT, [id number], [id number], LIPASE, TSH3, BMP, HEPATIC, CBC, CK, LACTIC ####[facility] [place] [id number] [facility] Leukocyte esterase [Presence ] in Urine by Test stripOrdered By: Jarad Vargas on 03-31-2024 Leukocyte esterase Test strip Ql (U) Leukocyte esterase [Presence] in Urine by Test strip High Negative [facility] Leukocytes [#/area] in Urine sediment by Automated countOrdered By: Jarad Vargas on 03-31-2024 WBC Auto (Urine sed) [#/Area] Leukocytes [#/area] in Urine sediment by Automated count High 0-4 [facility] Leukocytes [#/volume] correc kyleigh for nucleated erythrocytes in Blood by Automated counOrdered By: Jarad Vargas on 03-31-2024 WBC corrected for nucl RBC Auto (Bld) [#/Vol] Leukocytes [#/volume] corrected for nucleated erythrocytes in Blood by Automated coun 3.8-11.6 [facility] Lipaseon 03-31-2024 Lipase [Catalytic activity/Vol] 20.0 U/L Normal 11.0-82.0 [facility] Comment on above: Performed By: #### H S TROP, CUBLD, PTT, PT, [id number], [id number], LIPASE, TSH3, BMP, HEPATIC, CBC, CK, LACTIC ####[facility] [place] [id number] [facility] Lipase [Enzymatic activity/v olume] in Serum or PlasmaOrdered By: Jarad Vargas on 03-31-2024 Lipase [Catalytic activity/Vol] Lipase [Enzymatic activity/volume] in Serum or Plasma 11.0-82.0 [facility] Lymphocytes Auto (Bld) [#/Vo l]Ordered By: Jarad Vargas on 03-31-2024 Lymphocytes (Bld) [#/Vol] Lymphocytes [#/volume] in Blood by Automated count 1.00-4.8 [facility] Lymphocytes/100 WBC Auto (Bl d)Ordered By: Jarad Vargas on 03-31-2024 Lymphocytes/100 WBC (Bld) Lymphocytes/100 leukocytes in Blood by Automated count . [facility] MCH Auto (RBC) [Entitic mass ]Ordered By: Jarad Vargas on 03-31-2024 MCH (RBC) [Entitic mass] MCH [Entitic mass] by Automated count 24.7-34.3 [facility] MCHC Auto (RBC) [Mass/Vol]Or dered By: Jarad Vargas on 03-31-2024 MCHC (RBC) [Mass/Vol] MCHC [Mass/volume] by Automated count 32.0-35.0 [facility] MCV Auto (RBC) [Entitic vol] Ordered By: Jarad Vargas on 03-31-2024 MCV (RBC) [Entitic vol] MCV [Entitic vol ume] by Automated count 80-100 [facility] Monocyte distribution width [Entitic volume] in Blood by AutomatedOrdered By: Jarad Vargas on 03-31-2024 Monocyte distribution width Auto (Bld) [Entitic vol] Monocyte distribution width [Entitic volume] in Blood by Automated 0.00-20.00 [facility] Monocytes Auto (Bld) [#/Vol] Ordered By: Jarad Vargas on 03-31-2024 Monocytes (Bld) [#/Vol] Automated blood monocyte count 0.0-0.8 [facility] Monocytes/100 WBC Auto (Bld) Ordered By: Jarad Vargas on 03-31-2024 Monocytes/100 WBC (Bld) Automated monocyte % . [facility] Mucus [Presence] in Urine by AutomatedOrdered By: Jarad Vargas on 03-31-2024 Mucus Auto Ql (U) Mucus [Presence] in Urine by Automated [facility] Neutrophils Auto (Bld) [#/Vo l]Ordered By: Jarad Vargas on 03-31-2024 Neutrophils (Bld) [#/Vol] Neutrophils [#/volume] in Blood by Automated count 1.8-7.7 [facility] Neutrophils/100 WBC Auto (Bl d)Ordered By: Jarad Vargas on 03-31-2024 Neutrophils/100 WBC (Bld) Automated neutrophil % . [facility] Nitrite Test strip Ql (U)Ord ered By: Jarad Vargas on 03-31-2024 Nitrite Ql (U) Nitrite [Presence] i n Urine by Test strip Negative [facility] No Panel InformationOrdered By: Jarad Vargas on 03-31-2024 Estimated GFR (CKD-EPI) 48.060 mL/Min [facility] Creatinine Clearance (Chem 43.86 [facility] Nucleated erythrocytes [Pres ence] in Blood by Automated countOrdered By: Jarad Vargas on 03-31-2024 Nucleated RBC Auto Ql (Bld) Nucleated erythrocytes [Presence] in Blood by Automated count 0-0.5 [facility] Partial Thromboplastin Timeo n 03-31-2024 aPTT Coag (Bld) [Time] 28.6 s Normal 25.1-36.5 [facility] Comment on above: Result Comment: A he matocrit value greater than 55% may lead to inaccurate results in coagulation testing. Patients having hematocrit values >55% require a special collection tube for coagulation studies. Please contact the laboratory at [phone] for redraw instructions. PERFORMED BY: [facility] [address] [place] [place] [id number] PATHOLOGIST SCRAP METAL COLLECTOR CHUY OLIVERA M.D. Performed By: #### H S TROP, CUBLD, PTT, PT, [id number], [id number], LIPASE, TSH3, BMP, HEPATIC, CBC, CK, LACTIC ####[facility] [id number] [place] [address] [facility] Platelet mean volume Auto (B ld) [Entitic vol]Ordered By: Jarad Vargas on 03-31-2024 Platelet mean volume (Bld) [Entitic vol] Platelet mean volume [Entitic volume] in Blood by Automated count 6.3-10.7 [facility] Platelets Auto (Bld) [#/Vol] Ordered By: Jarad Vargas on 03-31-2024 Platelets (Bld) [#/Vol] Platelets [#/vol ume] in Blood by Automated count 150-450 [facility] Potassium [Moles/volume] in Serum or PlasmaOrdered By: Jarad Vargas on 03-31-2024 Potassium [Moles/Vol] Potassium [Moles/v olume] in Serum or Plasma 3.5-5.1 [facility] Protein Test strip (U) [Mass /Vol]Ordered By: Jarad Vargas on 03-31-2024 Protein (U) [Mass/Vol] Protein [Mass/vol ume] in Urine by Test strip Negative [facility] Protein [Mass/volume] in Ser um or PlasmaOrdered By: Jarad Vargas on 03-31-2024 Protein [Mass/Vol] Protein [Mass/volume ] in Serum or Plasma Low 6.4-8.9 [facility] Prothrombin Time INRon 03-31 INR Coag (PPP) [Relative time] 0.9 {INR} Normal [facility] Comment on above: Result Comment: [...] #### H S TROP, CUBLD, PTT, PT, [id number], [id number], LIPASE, TSH3, BMP, HEPATIC, CBC, CK, LACTIC ####[facility] [place] [id number] [facility] PT Coag (PPP) [Time] 10.9 s Normal 9.0-12.9 [facility] Comment on above: Result Comment: A he matocrit value greater than 55% may lead to inaccurate results in coagulation testing. Patients having hematocrit values >55% require a special collection tube for coagulation studies. Please contact the laboratory at [phone] for redraw instructions. Performed By: #### H S TROP, CUBLD, PTT, PT, [id number], [id number], LIPASE, TSH3, BMP, HEPATIC, CBC, CK, LACTIC ####[facility] [place] [id number] [facility] Prothrombin time (PT)Ordered By: Jarad Vargas on 03-31-2024 PT Coag (PPP) [Time] Prothrombin time (PT) 9.0- 12.9 [facility] Comment on above: A hematocrit value g reater than 55% may lead to inaccurate results in coagulation testing. Patients having hematocrit values >55% require a special collection tube for coagulation studies. Please contact the laboratory at [phone] for redraw instructions. RBC Auto (Bld) [#/Vol]Ordere d By: Jarad Vargas on 03-31-2024 RBC (Bld) [#/Vol] Erythrocytes [#/volu me] in Blood by Automated count 3.60-5.00 [facility] Serum or plasma albumin/glob ulin mass ratioOrdered By: Jarad Vargas on 03-31-2024 Albumin/Globulin [Mass ratio] Serum or plasma albumin/globulin mass ratio [facility] Serum or plasma anion gap de terminationOrdered By: Jarad Vargas on 03-31-2024 Anion gap [Moles/Vol] Serum or plasma an ion gap determination 6.0-15.0 [facility] Serum or plasma non-glucuron idated bilirubin measurement (mass/volume)Ordered By: Jarad Vargas on 03-31-2024 Bilirubin.indirect [Mass/Vol] Serum or plasma non-glucuronidated bilirubin measurement (mass/volume) [facility] Sodium [Moles/volume] in Ser um or PlasmaOrdered By: Jarad Vargas on 03-31-2024 Sodium [Moles/Vol] Sodium [Moles/volume ] in Serum or Plasma 136-145 [facility] Specific gravity Test strip (U) [Rel density]Ordered By: Jarad Vargas on 03-31-2024 Specific gravity (U) [Rel density] Specific gravity of Urine by Test strip 1.001-1.03 0 [facility] Thyroid Stimulating Hormoneo n 03-31-2024 TSH Qn 0.51 m[IU]/L Normal 0.45-5.33 [facility] Comment on above: Result Comment: PERF ORMED BY: [facility] [address] [address] PATHOLOGIST SCRAP METAL COLLECTOR CHUY OLIVERA M.D. Performed By: #### H S TROP, CUBLD, PTT, PT, [id number], [id number], LIPASE, TSH3, BMP, HEPATIC, CBC, CK, LACTIC ####[facility] [place] [address] [facility] Thyrotropin [Units/volume] i n Serum or PlasmaOrdered By: Jarad Vargas on 03-31-2024 TSH Qn Thyrotropin [Units/volume] in Serum or Plasma 0.45-5.33 [facility] Troponin I High Sensitivityo n 03-31-2024 Troponin I High Sensitivity 9.0 pg/mL Normal 0.0-15.0 [facility] Comment on above: Result Comment: PERF ORMED BY: [place] [address] PATHOLOGIST SCRAP METAL COLLECTOR CHUY OLIVERA M.D. Performed By: #### H S TROP, CUBLD, PTT, PT, [id number], [id number], LIPASE, TSH3, BMP, HEPATIC, CBC, CK, LACTIC ####[facility] [id number] Troponin I.cardiac [Mass/vol ume] in Serum or Plasma by Detection limit <= 0.01 ng/Ordered By: Jarad Vargas on 03-31-2024 Troponin I.cardiac DL <= 0.01 ng/mL [Mass/Vol] Troponin I.cardiac [Mass/volume] in Serum or Plasma by Detection limit <= 0.01 ng/ 0.0-15.0 [facility] Urea nitrogen [Mass/volume] in Serum or PlasmaOrdered By: Jarad Vargas on 03-31-2024 Urea nitrogen [Mass/Vol] Urea nitrogen [Mass/volume] in Serum or Plasma 7-25 [facility] Urine Cultureon 03-31-2024 Bacteria identified Cx Nom (U) No Growth 2 Days PERFORMED BY: [place] [address] PATHOLOGIST SCRAP METAL COLLECTOR CHUY OLIVERA M.D. Normal [facility] Comment on above: Performed By: #### A DDONUAPLUS, CUU #### [facility] [address] [place] [id number] [facility] Urine cultureOrdered By: Nidia Vargas on 03-31-2024 Bacteria identified Cx Nom (U) Urine culture [facility] Urobilinogen Test strip (U) [Mass/Vol]Ordered By: Jarad Vargas on 03-31-2024 Urobilinogen (U) [Mass/Vol] Urobilinogen [Mass/volume] in Urine by Test strip Normal [facility] Vit. B12/Folate Profileon Cobalamin (Vitamin B12) [Mass/Vol] 1038 pg/mL High 180-914 [facility] Comment on above: Performed By: #### H S TROP, CUBLD, PTT, PT, [id number], [id number], LIPASE, TSH3, BMP, HEPATIC, CBC, CK, LACTIC ####[facility] [place] [id number] [facility] Folate 37.0 ng/mL Normal >5.9 [facility] Comment on above: Result Comment: Kae te reference range: >5.9 ng/ml The WHO technical consultation on folate and vitamin b12 deficiencies has determined that folate concentrations less than 4 ng/ml are considered deficient. Performed By: #### H S TROP, CUBLD, PTT, PT, [id number], [id number], LIPASE, TSH3, BMP, HEPATIC, CBC, CK, LACTIC ####[place] [address] [place] [id number] [facility] Vitamin B12 ser/plasOrdered By: Rosendo Law on 03-31-2024 Cobalamin (Vitamin B12) [Mass/Vol] Vitamin B12 ser/plas High 180-914 [facility] Vitamin D 25 Hydroxy Totalon 03-31-2024 Vitamin D 25 Hydroxy Total 77.3 ng/mL Normal 30-100 [facility] Comment on above: Result Comment: SHARDA MIN D STATUS 25(OH)VITAMIN D RANGE (ng/mL) Deficient <20 Insufficient 20 to <30 Sufficient 30 to 100 Reference: Maida MF,Laura NC, Aliyah SHIN, et al. Evaluation,treatment, and prevention of vitamin D deficiency; an Endocrine Society clinical practice guideline. JCEM. 2010; 96(7):1911-30. PERFORMED BY: [facility] [address] [place] [id number] PATHOLOGIST SCRAP METAL COLLECTOR CHUY OLIVERA M.D. Performed By: #### H S TROP, CUBLD, PTT, PT, [id number], [id number], LIPASE, TSH3, BMP, HEPATIC, CBC, CK, LACTIC ####[facility] [id number] [place] [id number] [facility] Vitamin D+Metabolites [Mass/ volume] in Serum or PlasmaOrdered By: Rosendo Law on 03-31-2024 Vitamin D+Metabolites [Mass/Vol] Vitamin D+Metabolites [Mass/volume] in Serum or Plasma 30-100 [facility] Comment on above: VITAMIN D STATUS [...] ] in Blood by Automated count 3.8-11.6 [facility] X-ray reportOrdered By: Armin Caraballo on 03-31-2024 Study report [facility] [address] [place] [address] [place] [address] XRay Report Signed Patient: Aaron Lewis MR#: [id number] : 1945 Acct:[id number] Age/Sex: 79 / F ADM Date: 4 Loc: ER Room: Type: [facility] ER Attending Dr: Copies to: Jarad Vargas [...] Caraballo Jr, DO 03/31/24937 Signed By: 03/31/24937 [facility] XR chest 2V*on 03-31-2024 XR chest 2V* [facility] [place] [address] [place] [address] XRay Report Signed Patient: Aaron Lewis MR#: [id number] : 1945 Acct:[id number] Age/Sex: 79 / F ADM Date: 03/31/24 Loc: ER Room: Type: [facility] ER Attending Dr: Copies to: Jarad Vargas [...] Caraballo Jr., D.O.03/31/2024 9:38 AM Dictation Location: [place] [address] Transcribed By: PRECIOUS 03/31/24937 Dictated By: Ray Caraballo Jr, DO 03/31/24937 Signed By: 03/31/24937 Normal [facility] aPTT in Platelet poor plasma by Coagulation assayOrdered By: Jarad Vargas on 03-31-2024 aPTT Coag (PPP) [Time] Activated partial thromboplastin time (aPTT) in platelet poor plasma by coagulation a 25.1-36.5 [facility] Comment on above: A hematocrit value g reater than 55% may lead to inaccurate results in coagulation testing. Patients having hematocrit values >55% require a special collection tube for coagulation studies. Please contact the laboratory at [phone] for redraw instructions. pH Test strip (U)Ordered By: Jarad Vargas on 03-31-2024 pH (U) pH of Urine by Test strip 5.0-9.0 [facility] Alanine aminotransferase [En zymatic activity/volume] in Serum or PlasmaOrdered By: Elder Garcia on 03-23-2024 ALT [Catalytic activity/Vol] Alanine aminotransferase [Enzymatic activity/volume] in Serum or Plasma 7-52 [facility] Albumin [Mass/volume] in Ser um or Plasma by Bromocresol green (BCG) dye binding methoOrdered By: Elder Garcia on 03-23-2024 Albumin BCG dye [Mass/Vol] Albumin [Mass/volume] in Serum or Plasma by Bromocresol green (BCG) dye binding metho 3.5-5.7 [facility] Alkaline phosphatase [Enzyma tic activity/volume] in Serum or PlasmaOrdered By: Elder Garcia on 03-23-2024 ALP [Catalytic activity/Vol] Alkaline phosphatase [Enzymatic activity/volume] in Serum or Plasma 34-104 [facility] Appearance of UrineOrdered B y: Elder Garcia on 03-23-2024 Appearance (U) Urine appearance Abnormal [facility] Aspartate aminotransferase [ Enzymatic activity/volume] in Serum or PlasmaOrdered By: Elder Garcia on 03-23-2024 AST [Catalytic activity/Vol] Aspartate aminotransferase [Enzymatic activity/volume] in Serum or Plasma 13-39 [facility] Bacteria [Presence] in Urine by AutomatedOrdered By: Elder Garcia on 03-23-2024 Bacteria Auto Ql (U) Bacteria [Presence] in Urine by Automated High None Seen [facility] Basophils Auto (Bld) [#/Vol] Ordered By: Elder Garcia 03-23-2024 Basophils (Bld) [#/Vol] Automated basophil count 0.0-0.2 [facility] Basophils/100 WBC Auto (Bld) Ordered By: Elder Garcia on 03-23-2024 Basophils/100 WBC (Bld) Automated basophil % . [facility] Bilirubin Test strip Ql (U)O rdered By: Elder Garcia on 03-23-2024 Bilirubin Ql (U) Bilirubin.total [Presence] in Urine by Test strip Negative [facility] Bilirubin.direct [Mass/volum e] in Serum or PlasmaOrdered By: Elder Garcia on 03-23-2024 Bilirubin.direct [Mass/Vol] Bilirubin.direct [Mass/volume] in Serum or Plasma 0.03-0.18 [facility] Bilirubin.total [Mass/volume ] in Serum or PlasmaOrdered By: Elder Garcia on 03-23-2024 Bilirubin [Mass/Vol] Bilirubin.total [Mass/volume] in Serum or Plasma 0.3-1.0 [facility] Calcium [Mass/volume] in Ser um or PlasmaOrdered By: Elder Garcia on 03-23-2024 Calcium [Mass/Vol] Calcium [Mass/volume ] in Serum or Plasma 8.6-10.3 [facility] Carbon dioxide, total [Moles /volume] in Serum or PlasmaOrdered By: Elder Garcia on 03-23-2024 CO2 [Moles/Vol] Carbon dioxide, tota l [Moles/volume] in Serum or Plasma 21.0-31.0 [facility] Chloride [Moles/volume] in S alison or PlasmaOrdered By: Elder Garcia on 03-23-2024 Chloride [Moles/Vol] Chloride [Moles/vol ume] in Serum or Plasma 98-107 [facility] Color Auto (U)Ordered By: Arnaldo Garcia on 03-23-2024 Color (U) Color of Urine by Auto Yellow [facility] Complete Blood Count Auto Di ffon 03-23-2024 Basophils (Bld) [#/Vol] 0.1 10*3/uL Normal 0.0-0.2 [facility] Comment on above: Result Comment: PERF ORMED BY: [place] [address] PATHOLOGIST SCRAP METAL COLLECTOR LAZARA TERAN M.D. Performed By: #### C MP, LIPASE, CBC, CK, HEPATIC, HS TROP #### [facility] [address] [place] [address] [place] Basophils/100 WBC (Bld) 0.9 % Normal . [facility] Comment on above: Performed By: #### C MP, LIPASE, CBC, CK, HEPATIC, HS TROP #### [facility] [address] [place] [id number] [place] Eosinophils (Bld) [#/Vol] 0.1 10*3/uL Normal 0.0-0.45 [facility] Comment on above: Performed By: #### C MP, LIPASE, CBC, CK, HEPATIC, HS TROP #### [address] Eosinophils/100 WBC (Bld) 0.9 % Normal . [facility] Comment on above: Performed By: #### C MP, LIPASE, CBC, CK, HEPATIC, HS TROP #### [address] Erythrocyte distribution width (RBC) [Ratio] 17.8 % High 11.9-15.3 [facility] Comment on above: Performed By: #### C MP, LIPASE, CBC, CK, HEPATIC, HS TROP #### [address] Hematocrit (Bld) [Volume fraction] 44.4 % Normal 34.0-46.4 [facility] Comment on above: Performed By: #### C MP, LIPASE, CBC, CK, HEPATIC, HS TROP #### [address] Hemoglobin (Bld) [Mass/Vol] 14.7 g/dL Normal 11.8-15.4 [facility] Comment on above: Performed By: #### C MP, LIPASE, CBC, CK, HEPATIC, HS TROP #### [address] Lymphocytes (Bld) [#/Vol] 1.1 10*3/uL Normal 1.00-4.8 [facility] Comment on above: Performed By: #### C MP, LIPASE, CBC, CK, HEPATIC, HS TROP #### [address] Lymphocytes/100 WBC (Bld) 12.7 % Normal . [facility] Comment on above: Performed By: #### C MP, LIPASE, CBC, CK, HEPATIC, HS TROP #### [address] MCH (RBC) [Entitic mass] 30.7 pg Normal 24.7-34.3 [facility] Comment on above: Performed By: #### C MP, LIPASE, CBC, CK, HEPATIC, HS TROP #### [address] MCV (RBC) [Entitic vol] 93.1 fL Normal 80-100 [facility] Comment on above: Performed By: #### C MP, LIPASE, CBC, CK, HEPATIC, HS TROP #### [address] Mean Corpuscular HGB Conc 33.0 g/dL Normal 32.0-35.0 [facility] Comment on above: Performed By: #### C MP, LIPASE, CBC, CK, HEPATIC, HS TROP #### [address] Monocytes (Bld) [#/Vol] 0.6 10*3/uL Normal 0.0-0.8 [facility] Comment on above: Performed By: #### C MP, LIPASE, CBC, CK, HEPATIC, HS TROP #### [address] Monocytes/100 WBC (Bld) 19.41 % Normal 0.00-20.00 [facility] Comment on above: Performed By: #### C MP, LIPASE, CBC, CK, HEPATIC, HS TROP #### [address] Monocytes/100 WBC (Bld) 7.0 % Normal . [facility] Comment on above: Performed By: #### C MP, LIPASE, CBC, CK, HEPATIC, HS TROP #### [address] Neutrophils (Bld) [#/Vol] 6.9 10*3/uL Normal 1.8-7.7 [facility] Comment on above: Performed By: #### C MP, LIPASE, CBC, CK, HEPATIC, HS TROP #### [address] Neutrophils/100 WBC (Bld) 78.5 % Normal . [facility] Comment on above: Performed By: #### C MP, LIPASE, CBC, CK, HEPATIC, HS TROP #### [address] NRBC% 0.0 /100{WBC} Normal 0-0.5 [facility] Comment on above: Performed By: #### C MP, LIPASE, CBC, CK, HEPATIC, HS TROP #### [address] Platelet mean volume (Bld) [Entitic vol] 9.2 fL Normal 6.3-10.7 [facility] Comment on above: Performed By: #### C MP, LIPASE, CBC, CK, HEPATIC, HS TROP #### [address] Platelets (Bld) [#/Vol] 271 10*3/uL Normal 150-450 [facility] Comment on above: Performed By: #### C MP, LIPASE, CBC, CK, HEPATIC, HS TROP #### [address] RBC (Bld) [#/Vol] 4.78 10*6/uL Normal 3.60-5.00 [facility] Comment on above: Performed By: #### C MP, LIPASE, CBC, CK, HEPATIC, HS TROP #### [address] WBC (Bld) [#/Vol] 8.8 10*3/uL Normal 3.8-11.6 [facility] Comment on above: Performed By: #### C MP, LIPASE, CBC, CK, HEPATIC, HS TROP #### [address] Comprehensive Metabolic Pane meagan 03-23-2024 Albumin [Mass/Vol] 3.7 g/dL Normal 3.5-5.7 [facility] Comment on above: Performed By: #### C MP, LIPASE, CBC, CK, HEPATIC, HS TROP ####[facility] [place] [address] Albumin/Globulin [Mass ratio] 1.5 {ratio} Normal [facility] Comment on above: Performed By: #### C MP, LIPASE, CBC, CK, HEPATIC, HS TROP ####[address] ALP [Catalytic activity/Vol] 61 U/L Normal 34-104 [facility] Comment on above: Performed By: #### C MP, LIPASE, CBC, CK, HEPATIC, HS TROP ####[address] ALT [Catalytic activity/Vol] 18 U/L Normal 7-52 [facility] Comment on above: Performed By: #### C MP, LIPASE, CBC, CK, HEPATIC, HS TROP ####[address] Anion gap [Moles/Vol] 13.3 mmol/L Normal 6.0-15.0 [facility] Comment on above: Performed By: #### C MP, LIPASE, CBC, CK, HEPATIC, HS TROP ####[address] AST [Catalytic activity/Vol] 15 U/L Normal 13-39 [facility] Comment on above: Performed By: #### C MP, LIPASE, CBC, CK, HEPATIC, HS TROP ####[address] Bilirubin [Mass/Vol] 0.5 mg/dL Normal 0.3-1.0 [facility] Comment on above: Performed By: #### C MP, LIPASE, CBC, CK, HEPATIC, HS TROP ####[address] Calcium [Mass/Vol] 9.2 mg/dL Normal 8.6-10.3 [facility] Comment on above: Performed By: #### C MP, LIPASE, CBC, CK, HEPATIC, HS TROP ####[address] Chloride [Moles/Vol] 106 mmol/L Normal 98-107 [facility] Comment on above: Performed By: #### C MP, LIPASE, CBC, CK, HEPATIC, HS TROP ####[address] CO2 [Moles/Vol] 24.5 mmol/L Normal 21.0-31.0 [facility] Comment on above: Performed By: #### C MP, LIPASE, CBC, CK, HEPATIC, HS TROP ####[address] Creatinine [Mass/Vol] 1.04 mg/dL Normal 0.60-1.20 [facility] Comment on above: Performed By: #### C MP, LIPASE, CBC, CK, HEPATIC, HS TROP ####[address] Creatinine Clr Calc Pharmacy 44.72 Normal [facility] Comment on above: Performed By: #### C MP, LIPASE, CBC, CK, HEPATIC, HS TROP ####[address] GFR/1.73 sq M.predicted MDRD (S/P/Bld) [Vol rate/Area] 55.356 mL/min/{1.73_m2} Normal [facility] Comment on above: Performed By: #### C MP, LIPASE, CBC, CK, HEPATIC, HS TROP ####[address] Globulin (S) [Mass/Vol] 2.4 g/dL Normal [facility] Comment on above: Performed By: #### C MP, LIPASE, CBC, CK, HEPATIC, HS TROP ####[address] Glucose [Mass/Vol] 102 mg/dL High 70-100 [facility] Comment on above: Result Comment: [place] Glucose Reference Range is dependent on time and content of last meal. Glucose of more than 200 mg/dL in a nonstressed, ambulatory subject supports the diagnosis of Diabetes Mellitus. ADA recommended reference range Performed By: #### C MP, LIPASE, CBC, CK, HEPATIC, HS TROP ####[address] Potassium [Moles/Vol] 3.8 mmol/L Normal 3.5-5.1 [facility] Comment on above: Performed By: #### C MP, LIPASE, CBC, CK, HEPATIC, HS TROP ####[address] Protein [Mass/Vol] 6.1 g/dL Low 6.4-8.9 [facility] Comment on above: Performed By: #### C MP, LIPASE, CBC, CK, HEPATIC, HS TROP ####[address] Sodium [Moles/Vol] 140 mmol/L Normal 136-145 [facility] Comment on above: Performed By: #### C MP, LIPASE, CBC, CK, HEPATIC, HS TROP ####[address] Urea nitrogen [Mass/Vol] 19 mg/dL Normal 7-25 [facility] Comment on above: Performed By: #### C MP, LIPASE, CBC, CK, HEPATIC, HS TROP ####[place] [id number] [facility] Creatine Kinaseon 03-23-2024 CK [Catalytic activity/Vol] 22 U/L Low 30-223 [facility] Comment on above: Performed By: #### C MP, LIPASE, CBC, CK, HEPATIC, HS TROP ####[address] Creatine kinase [Enzymatic a ctivity/volume] in Serum or PlasmaOrdered By: Elder Garcia on 03-23-2024 CK [Catalytic activity/Vol] Creatine kinase [Enzymatic activity/volume] in Serum or Plasma Low 30-223 [facility] Creatinine [Mass/volume] in Serum or PlasmaOrdered By: Elder Garcia on 03-23-2024 Creatinine [Mass/Vol] Creatinine [Mass/v olume] in Serum or Plasma 0.60-1.20 [facility] Dipstick and Microscopicon 1 05-23-2023 Appearance (U) Cloudy Critically abnormal Clear [facility] Comment on above: Order Comment: Name Collection Type:: Clean-Voided Midstream Performed By: #### A DDONUAPLUS, CUU ####[address] Bacteria,Urine 1+ High None Seen [facility] Comment on above: Order Comment: Name Collection Type:: Clean-Voided Midstream Performed By: #### A DDONUAPLUS, CUU ####[address] Bilirubin,Urine Negative Normal Negative [facility] Comment on above: Order Comment: Name Collection Type:: Clean-Voided Midstream Performed By: #### A DDONUAPLUS, CUU ####[address] Color (U) Yellow Normal Yellow [facility] Comment on above: Order Comment: Name Collection Type:: Clean-Voided Midstream Performed By: #### A DDONUAPLUS, CUU ####[address] Glucose Ql (U) Normal Normal Normal [facility] Comment on above: Order Comment: Name Collection Type:: Clean-Voided Midstream Performed By: #### A DDONUAPLUS, CUU ####[address] Hyaline Casts,Urine 9 [LPF] High 0-8 [facility] Comment on above: Order Comment: Name Collection Type:: Clean-Voided Midstream Performed By: #### A DDONUAPLUS, CUU ####[address] Ketones Ql (U) 1+ High Negative [facility] Comment on above: Order Comment: Name Collection Type:: Clean-Voided Midstream Performed By: #### A DDONUAPLUS, CUU ####[address] Leukocyte esterase Test strip Ql (U) 4+ High Negative [facility] Comment on above: Order Comment: Name Collection Type:: Clean-Voided Midstream Performed By: #### A DDONUAPLUS, CUU ####[address] [address] [facility] Mucus,Urine 1+ Critically abnormal [facility] Comment on above: Order Comment: Name Collection Type:: Clean-Voided Midstream Result Comment: PERF ORMED BY: [facility] [address] [place] [address] PATHOLOGIST SCRAP METAL COLLECTOR LAZARA TERAN M.D. Performed By: #### A DDONUAPLUS, CUU ####[place] [id number] [facility] Nitrite,Urine Positive High Negative [facility] Comment on above: Order Comment: Name Collection Type:: Clean-Voided Midstream Performed By: #### A DDONUAPLUS, CUU ####[place] [id number] [facility] Occult Blood,Urine Negative Normal Negative [facility] Comment on above: Order Comment: Name Collection Type:: Clean-Voided Midstream Result Comment: PERF ORMED BY: [facility] [address] [place] [address] PATHOLOGIST SCRAP METAL COLLECTOR LAZARA TERAN M.D. Performed By: #### A DDONUAPLUS, CUU ####[place] [id number] [facility] pH (U) 5.5 [pH] Normal 5.0-9.0 [facility] Comment on above: Order Comment: Name Collection Type:: Clean-Voided Midstream Performed By: #### A DDONUAPLUS, CUU ####[place] [id number] [facility] Protein (U) [Mass/Vol] 20 mg/dL High Negative [facility] Comment on above: Order Comment: Name Collection Type:: Clean-Voided Midstream Performed By: #### A DDONUAPLUS, CUU ####[place] [id number] [facility] RBC,Urine 5 [HPF] High 0-4 [facility] Comment on above: Order Comment: Name Collection Type:: Clean-Voided Midstream Performed By: #### A DDONUAPLUS, CUU ####[address] Specificy [place],Urine 1.021 Normal 1.00 1-1.03 0 [facility] Comment on above: Order Comment: Name Collection Type:: Clean-Voided Midstream Performed By: #### A DDONUAPLUS, CUU ####[address] Squamous Epithelial Cell,Urine 1 [HPF] Normal 0-2 [facility] Comment on above: Order Comment: Name Collection Type:: Clean-Voided Midstream Performed By: #### A DDONUAPLUS, CUU ####[address] Urobilinogen,Urine 2 mg/dL High Normal [facility] Comment on above: Order Comment: Name Collection Type:: Clean-Voided Midstream Performed By: #### A DDONUAPLUS, CUU ####[address] WBC CLUMP, Urine Many High None Seen [facility] Comment on above: Order Comment: Name Collection Type:: Clean-Voided Midstream Performed By: #### A DDONUAPLUS, CUU ####[place] [id number] [facility] WBC,Urine Innumerable High 0-4 [facility] Comment on above: Order Comment: Name Collection Type:: Clean-Voided Midstream Performed By: #### A DDONUAPLUS, CUU ####[place] [id number] [facility] ECG 12 lead ECGon 03-23-2024 ECG 12 lead ECG [facility] [address] [place] [address] [place] [address] Electrocardiograph Report Signed Patient: Aaron Lewis MR#: [id number] : 1945 Acct:[id number] Age/Sex: 79 / F ADM Date: 03/23/24 [...] Anterolateral leads Confirmed by SHUKRI VELAZQUEZ DO ([id number]) on 03/23/2024 8:20:13 PM Referred By: Electronically Signed By: SHUKRI VELAZQUEZ DO Transcribed By: MUS Signed By Shukri Velazquez DO 03/23 Normal [facility] Eosinophils Auto (Bld) [#/Vo l]Ordered By: Elder Garcia on 03-23-2024 Eosinophils (Bld) [#/Vol] Automated eosinophil count 0.0-0.45 [facility] Eosinophils/100 WBC Auto (Bl d)Ordered By: Elder Garcia on 03-23-2024 Eosinophils/100 WBC (Bld) Automated eosinophil % . [facility] Epithelial cells.squamous [# /area] in Urine sediment by Automated countOrdered By: Elder Garcia on 03-23-2024 Epithelial cells.squamous Auto (Urine sed) [#/Area] Epithelial cells.squamous [#/area] in Urine sediment by Automated count 0-2 [facility] Erythrocyte distribution wid th Auto (RBC) [Ratio]Ordered By: Elder Garcia on 03-23-2024 Erythrocyte distribution width (RBC) [Ratio] Erythrocyte distribution width [Ratio] by Automated count High 11.9-15.3 [facility] Erythrocytes [#/area] in Uri ne sediment by Automated countOrdered By: Elder Garcia on 03-23-2024 RBC Auto (Urine sed) [#/Area] Erythrocytes [#/area] in Urine sediment by Automated count High 0-4 [facility] Globulin Calc (S) [Mass/Vol] Ordered By: Elder Garcia on 03-23-2024 Globulin (S) [Mass/Vol] Serum globulin measurement by calculation (mass/volume) [facility] Glucose [Mass/volume] in Ser um or PlasmaOrdered By: Elder Garcia on 03-23-2024 Glucose [Mass/Vol] Glucose [Mass/volume ] in Serum or Plasma High 70-100 [facility] Comment on above: ADA recommended refe [...] [Mass/volume] in Urine by Test strip Normal [facility] Hematocrit Auto (Bld) [Volum e fraction]Ordered By: Elder Garcia on 03-23-2024 Hematocrit (Bld) [Volume fraction] Hematocrit [Volume Fraction] of Blood by Automated count 34.0-46.4 [facility] Hemoglobin Test strip Ql (U) Ordered By: Elder Garcia on 03-23-2024 Hemoglobin Ql (U) Hemoglobin [Presence ] in Urine by Test strip Negative [facility] Hemoglobin [Mass/volume] in BloodOrdered By: Elder Garcia on 03-23-2024 Hemoglobin (Bld) [Mass/Vol] Hemoglobin [Mass/volume] in Blood 11.8-15.4 [facility] Hepatic Panelon 03-23-2024 Bilirubin,Indirect 0.4 mg/dL Normal [facility] Comment on above: Performed By: #### C MP, LIPASE, CBC, CK, HEPATIC, HS TROP ####[facility] [id number] Bilirubin.indirect [Mass/Vol] 0.10 mg/dL Normal 0.03-0.18 [facility] Comment on above: Performed By: #### C MP, LIPASE, CBC, CK, HEPATIC, HS TROP ####[facility] [id number] Hyaline casts [#/area] in Ur ine sediment by Automated countOrdered By: Elder Garcia on 03-23-2024 Hyaline casts Auto (Urine sed) [#/Area] Hyaline casts [#/area] in Urine sediment by Automated count High 0-8 [facility] Ketones Test strip Ql (U)Ord ered By: Elder Garcia on 03-23-2024 Ketones Ql (U) Ketones [Presence] i n Urine by Test strip High Negative [facility] Leukocyte clumps [Presence] in Urine by AutomatedOrdered By: Elder Garcia on 03-23-2024 Leukocyte clumps Auto Ql (U) Leukocyte clumps [Presence] in Urine by Automated High None Seen [facility] Leukocyte esterase [Presence ] in Urine by Test stripOrdered By: Elder Garcia on 03-23-2024 Leukocyte esterase Test strip Ql (U) Leukocyte esterase [Presence] in Urine by Test strip High Negative [facility] Leukocytes [#/area] in Urine sediment by Automated countOrdered By: Elder Garcia on 03-23-2024 WBC Auto (Urine sed) [#/Area] Leukocytes [#/area] in Urine sediment by Automated count High 0-4 [facility] Leukocytes [#/volume] correc kyleigh for nucleated erythrocytes in Blood by Automated counOrdered By: Elder Garcia on 03-23-2024 WBC corrected for nucl RBC Auto (Bld) [#/Vol] Leukocytes [#/volume] corrected for nucleated erythrocytes in Blood by Automated coun 3.8-11.6 [facility] Lipaseon 03-23-2024 Lipase [Catalytic activity/Vol] 23.0 U/L Normal 11.0-82.0 [facility] Comment on above: Result Comment: PERF ORMED BY: [facility] [address] [place] [address] PATHOLOGIST SCRAP METAL COLLECTOR LAZARA TERAN M.D. Performed By: #### C MP, LIPASE, CBC, CK, HEPATIC, HS TROP ####[facility] [id number] [place] [address] [facility] Lipase [Enzymatic activity/v olume] in Serum or PlasmaOrdered By: Elder Garcia on 03-23-2024 Lipase [Catalytic activity/Vol] Lipase [Enzymatic activity/volume] in Serum or Plasma 11.0-82.0 [facility] Lymphocytes Auto (Bld) [#/Vo l]Ordered By: Elder Garcia on 03-23-2024 Lymphocytes (Bld) [#/Vol] Lymphocytes [#/volume] in Blood by Automated count 1.00-4.8 [facility] Lymphocytes/100 WBC Auto (Bl d)Ordered By: Elder Garcia on 03-23-2024 Lymphocytes/100 WBC (Bld) Lymphocytes/100 leukocytes in Blood by Automated count . [facility] MCH Auto (RBC) [Entitic mass ]Ordered By: Elder Garcia on 03-23-2024 MCH (RBC) [Entitic mass] MCH [Entitic mass] by Automated count 24.7-34.3 [facility] MCHC Auto (RBC) [Mass/Vol]Or dered By: Elder Garcia on 03-23-2024 MCHC (RBC) [Mass/Vol] MCHC [Mass/volume] by Automated count 32.0-35.0 [facility] MCV Auto (RBC) [Entitic vol] Ordered By: Elder Garcia on 03-23-2024 MCV (RBC) [Entitic vol] MCV [Entitic vol ume] by Automated count 80-100 [facility] Monocyte distribution width [Entitic volume] in Blood by AutomatedOrdered By: Elder Garcia on 03-23-2024 Monocyte distribution width Auto (Bld) [Entitic vol] Monocyte distribution width [Entitic volume] in Blood by Automated 0.00-20.00 [facility] Monocytes Auto (Bld) [#/Vol] Ordered By: Elder Garcia on 03-23-2024 Monocytes (Bld) [#/Vol] Automated blood monocyte count 0.0-0.8 [facility] Monocytes/100 WBC Auto (Bld) Ordered By: Elder Garcia on 03-23-2024 Monocytes/100 WBC (Bld) Automated monocyte % . [facility] Mucus [Presence] in Urine by AutomatedOrdered By: Elder Garcia on 03-23-2024 Mucus Auto Ql (U) Mucus [Presence] in Urine by Automated Abnormal [facility] Neutrophils Auto (Bld) [#/Vo l]Ordered By: Elder Garcia on 03-23-2024 Neutrophils (Bld) [#/Vol] Neutrophils [#/volume] in Blood by Automated count 1.8-7.7 [facility] Neutrophils/100 WBC Auto (Bl d)Ordered By: Elder Garcia on 03-23-2024 Neutrophils/100 WBC (Bld) Automated neutrophil % . [facility] Nitrite Test strip Ql (U)Ord ered By: Elder Garcia on 03-23-2024 Nitrite Ql (U) Nitrite [Presence] i n Urine by Test strip High Negative [facility] No Panel InformationOrdered By: Elder Garcia on 03-23-2024 Estimated GFR (CKD-EPI) 55.356 mL/Min [facility] Creatinine Clearance (Chem 44.72 [facility] Nucleated erythrocytes [Pres ence] in Blood by Automated countOrdered By: Elder Garcia on 03-23-2024 Nucleated RBC Auto Ql (Bld) Nucleated erythrocytes [Presence] in Blood by Automated count 0-0.5 [facility] Platelet mean volume Auto (B ld) [Entitic vol]Ordered By: Elder Garcia on 03-23-2024 Platelet mean volume (Bld) [Entitic vol] Platelet mean volume [Entitic volume] in Blood by Automated count 6.3-10.7 [facility] Platelets Auto (Bld) [#/Vol] Ordered By: Elder Garcia 03-23-2024 Platelets (Bld) [#/Vol] Platelets [#/vol ume] in Blood by Automated count 150-450 [facility] Potassium [Moles/volume] in Serum or PlasmaOrdered By: Elder Garcia 03-23-2024 Potassium [Moles/Vol] Potassium [Moles/v olume] in Serum or Plasma 3.5-5.1 [facility] Protein Test strip (U) [Mass /Vol]Ordered By: Elder Garcia on 03-23-2024 Protein (U) [Mass/Vol] Protein [Mass/vol ume] in Urine by Test strip High Negative [facility] Protein [Mass/volume] in Ser um or PlasmaOrdered By: Elder Garcia 03-23-2024 Protein [Mass/Vol] Protein [Mass/volume ] in Serum or Plasma Low 6.4-8.9 [facility] RBC Auto (Bld) [#/Vol]Ordere d By: Elder Garcia on 03-23-2024 RBC (Bld) [#/Vol] Erythrocytes [#/volu me] in Blood by Automated count 3.60-5.00 [facility] Serum or plasma albumin/glob ulin mass ratioOrdered By: Elder Garcia on 03-23-2024 Albumin/Globulin [Mass ratio] Serum or plasma albumin/globulin mass ratio [facility] Serum or plasma anion gap de terminationOrdered By: Elder Garcia on 03-23-2024 Anion gap [Moles/Vol] Serum or plasma an ion gap determination 6.0-15.0 [facility] Serum or plasma non-glucuron idated bilirubin measurement (mass/volume)Ordered By: Elder Garcia on 03-23-2024 Bilirubin.indirect [Mass/Vol] Serum or plasma non-glucuronidated bilirubin measurement (mass/volume) [facility] Sodium [Moles/volume] in Ser um or PlasmaOrdered By: Elder Garcia on 03-23-2024 Sodium [Moles/Vol] Sodium [Moles/volume ] in Serum or Plasma 136-145 [facility] Specific gravity Test strip (U) [Rel density]Ordered By: Elder Garcia on 03-23-2024 Specific gravity (U) [Rel density] Specific gravity of Urine by Test strip 1.001-1.03 0 [facility] Troponin I High Sensitivityo n 03-23-2024 Troponin I High Sensitivity 9.3 pg/mL Normal 0.0-15.0 [facility] Comment on above: Result Comment: PERF ORMED BY: [facility] [address] [place] [address] PATHOLOGIST SCRAP METAL COLLECTOR LAZARA TERAN M.D. Performed By: #### C MP, LIPASE, CBC, CK, HEPATIC, HS TROP ####[facility] [id number] [place] [address] [facility] Troponin I.cardiac [Mass/vol ume] in Serum or Plasma by Detection limit <= 0.01 ng/Ordered By: Elder Garcia on 03-23-2024 Troponin I.cardiac DL <= 0.01 ng/mL [Mass/Vol] Troponin I.cardiac [Mass/volume] in Serum or Plasma by Detection limit <= 0.01 ng/ 0.0-15.0 [facility] Urea nitrogen [Mass/volume] in Serum or PlasmaOrdered By: Elder Garcia on 03-23-2024 Urea nitrogen [Mass/Vol] Urea nitrogen [Mass/volume] in Serum or Plasma 7-25 [facility] Urine Cultureon 03-23-2024 Bacteria identified Cx Nom (U) ORGANISM: Escherichia coli (O:ESCCOL) [place] Count >100,000 Aerobic DARIUS Charge (NMIC56) SUSCEPTIBILITY [...] RESISTANT TO ALL B-LACTAM DRUGS. PERFORMED BY: [facility] Kristina MCINTYRECarlos [place] [id number] PATHOLOGIST SCRAP METAL COLLECTOR LAZARA TERAN M.D. Normal [facility] Comment on above: Performed By: #### A KAYLA ROSS ####[facility] [id number] [place] [id number] [facility] Urine cultureOrdered By: Babak Garcia on 03-23-2024 Bacteria identified Cx Nom (U) Escherichia coli Abnormal [facility] Urobilinogen Test strip (U) [Mass/Vol]Ordered By: Elder Garcia on 03-23-2024 Urobilinogen (U) [Mass/Vol] Urobilinogen [Mass/volume] in Urine by Test strip High Normal [facility] WBC Auto (Bld) [#/Vol]Ordere d By: Elder Garcia on 03-23-2024 WBC (Bld) [#/Vol] Leukocytes [#/volume ] in Blood by Automated count 3.8-11.6 [facility] X-ray reportOrdered By: Peyton Gatica on 03-23-2024 Study report [facility] [address] [place] [address] [place] [address] XRay Report Signed Patient: Aaron Lewis MR#: [id number] : 1945 Acct:[id number] Age/Sex: 79 / F ADM Date: 4 Loc: ER Room: Type: [facility] ER Attending Dr: Copies to: Elder Garcia [...] Peyton Gatica M.D.03/23/2024 4:45 PM Dictation Location: [facility]- Transcribed By: PRECIOUS 03/23/241644 Dictated By: Peyton Gatica II, MD 03/23/241642 Signed By: 03/23/241644 [facility] Work Phone: XR acute abdomen serieson XR acute abdomen series [facility] [address] [place] [address] [place] [address] XRay Report Signed Patient: Aaron Lewis MR#: [id number] : 1945 Acct:[id number] Age/Sex: 79 / F ADM Date: 03/23/24 Loc: ER Room: Type: [facility] ER Attending Dr: Copies to: Elder Garcia [...] Peyton Gatica M.D.03/23/2024 4:45 PM Dictation Location: [place] [address] Transcribed By: [facility] 03/23/241644 Dictated By: Peyton Gatica II, MD 03/23/241642 Signed By: 03/23/241644 Normal [facility] pH Test strip (U)Ordered By: Elder Garcia on 03-23-2024 pH (U) pH of Urine by Test strip 5.0-9.0 [facility] Estimated glomerular filtrat ion rate (GFR) non- Americanon 03-13-2024 GFR/1.73 sq M.predicted among non-blacks MDRD (S/P/Bld) [Vol rate/Area] Estimated glomerular filtration rate (GFR) non- Low >=60 mL/min/1.7 3m 2 [facility] Laboratory - Chemistry and C hemistry - challengeon 03-13-2024 Creatinine [Mass/Vol] 1.32 mg/dL High 0.55-1.02 [facility] GFR/1.73 sq M.predicted MDRD (S/P/Bld) [Vol rate/Area] 47 mL/min/{1.73_m2} Low >=60 mL/min/1.7 3m 2 [facility] Urea nitrogen [Mass/Vol] 20.0 mg/dL High 7.0-18.0 [facility] 36on 03-10-2024 36 Labs are in media Normal [facility] 36 Confirmed Opat. Labs confirmed with [facility]. Left for pt to follow up for appointment. Normal [facility] Basophils Auto (Bld) [#/Vol] on 03-10-2024 Basophils (Bld) [#/Vol] 0.1 10 3/uL 0.0-0.1 [facility] Basophils (Bld) [#/Vol] Automated basophil count 0.0-0.1 [facility] Basophils/100 WBC Auto (Bld) on 03-10-2024 Basophils/100 WBC (Bld) 1.0 % 0.2-2.0 [facility] Basophils/100 WBC (Bld) Automated basophil % 0. 2-2.0 [facility] Eosinophils/100 WBC Auto (Bl d)on 03-10-2024 Eosinophils/100 WBC (Bld) 1.9 % 0.9-7.0 [facility] Eosinophils/100 WBC (Bld) Automated eosinophil % 0.9-7.0 [facility] Erythrocyte distribution wid th Auto (RBC) [Ratio]on 03-10-2024 Erythrocyte distribution width (RBC) [Ratio] 16.6 % High 11.0-15.0 [facility] Erythrocyte distribution width (RBC) [Ratio] Erythrocyte distribution width [Ratio] by Automated count High 11.0-15.0 [facility] Estimated glomerular filtrat ion rate (GFR) non- Americanon 03-10-2024 GFR/1.73 sq M.predicted among non-blacks MDRD (S/P/Bld) [Vol rate/Area] 25 mL/min/{1.73_m2} Low >=60 mL/min/1.7 3m 2 [facility] GFR/1.73 sq M.predicted among non-blacks MDRD (S/P/Bld) [Vol rate/Area] Estimated glomerular filtration rate (GFR) non- Low >=60 mL/min/1.7 3m 2 [facility] Hematocrit Auto (Bld) [Volum e fraction]on 03-10-2024 Hematocrit (Bld) [Volume fraction] 42.5 % 36.0-48.0 [facility] Hematocrit (Bld) [Volume fraction] Hematocrit [Volume Fraction] of Blood by Automated count 36.0-48.0 [facility] Hemoglobin [Mass/volume] in Bloodon 03-10-2024 Hemoglobin (Bld) [Mass/Vol] 13.3 g/dL 12.0-16.0 [facility] Hemoglobin (Bld) [Mass/Vol] Hemoglobin [Mass/volume] in Blood 12.0-16.0 [facility] Laboratory - Chemistry and C hemistry - challengeon 03-10-2024 Calcium [Mass/Vol] 9.7 mg/dL 8.5-10.1 [facility] Chloride [Moles/Vol] 112 mmol/L High 98-107 [facility] CO2 [Moles/Vol] 24.9 mmol/L 21.0-32.0 [facility] Creatinine [Mass/Vol] 1.95 mg/dL High 0.55-1.02 [facility] GFR/1.73 sq M.predicted MDRD (S/P/Bld) [Vol rate/Area] 30 mL/min/{1.73_m2} Low >=60 mL/min/1.7 3m 2 [facility] Glucose [Mass/Vol] 140 mg/dL High 74-106 [facility] Potassium [Moles/Vol] 3.4 mmol/L Low 3.5-5.1 [facility] Sodium [Moles/Vol] 148 mmol/L High 136-145 [facility] Urea nitrogen [Mass/Vol] 26.0 mg/dL High 7.0-18.0 [facility] Urea nitrogen/Creatinine [Mass ratio] 13.3 mg/mg [facility] Laboratory - Hematology and Cell countson 03-10-2024 Immature granulocytes/100 WBC (Bld) 0.4 % 0.0-0.5 [facility] Leukocytes [#/volume] correc kyleigh for nucleated erythrocytes in Blood by Automated counon 03-10-2024 WBC corrected for nucl RBC Auto (Bld) [#/Vol] 10.3 10 3/uL 4.0-11.0 [facility] WBC corrected for nucl RBC Auto (Bld) [#/Vol] Leukocytes [#/volume] corrected for nucleated erythrocytes in Blood by Automated coun .0-11.0 [facility] Lymphocytes Auto (Bld) [#/Vo l]on 03-10-2024 Lymphocytes (Bld) [#/Vol] 1.3 10 3/uL 1.2-3.8 [facility] Lymphocytes (Bld) [#/Vol] Lymphocytes [#/volume] in Blood by Automated count 1.2-3.8 [facility] Lymphocytes/100 WBC Auto (Bl d)on 03-10-2024 Lymphocytes/100 WBC (Bld) 12.2 % Low 20.5-60.0 [facility] Lymphocytes/100 WBC (Bld) Lymphocytes/100 leukocytes in Blood by Automated count Low 20.5-60.0 [facility] MCH Auto (RBC) [Entitic mass ]on 03-10-2024 MCH (RBC) [Entitic mass] 30.0 pg 26.7-34.0 [facility] MCH (RBC) [Entitic mass] MCH [Entitic mass] by Automated count 26.7-34.0 [facility] MCHC Auto (RBC) [Mass/Vol]on 03-10-2024 MCHC (RBC) [Mass/Vol] 31.3 g/dL 29.9-35.2 [facility] MCHC (RBC) [Mass/Vol] MCHC [Mass/volume] by Automated count 29.9-35.2 [facility] MCV Auto (RBC) [Entitic vol] on 03-10-2024 MCV (RBC) [Entitic vol] 95.9 fL 81.0-99.0 [facility] MCV (RBC) [Entitic vol] MCV [Entitic vol ume] by Automated count 81.0-99.0 [facility] Monocytes Auto (Bld) [#/Vol] on 03-10-2024 Monocytes (Bld) [#/Vol] 0.7 10 3/uL 0.3-0.8 [facility] Monocytes (Bld) [#/Vol] Automated blood monocyte count 0.3-0.8 [facility] Monocytes/100 WBC Auto (Bld) on 03-10-2024 Monocytes/100 WBC (Bld) 6.9 % 1.7-12.0 [facility] Monocytes/100 WBC (Bld) Automated monocyte % 1. 7-12.0 [facility] Neutrophils Auto (Bld) [#/Vo l]on 03-10-2024 Neutrophils (Bld) [#/Vol] 8.0 10 3/uL High 1.4-6.5 [facility] Neutrophils (Bld) [#/Vol] Neutrophils [#/volume] in Blood by Automated count High 1.4-6.5 [facility] Neutrophils/100 WBC Auto (Bl d)on 03-10-2024 Neutrophils/100 WBC (Bld) 77.6 % High 43.0-75.0 [facility] Neutrophils/100 WBC (Bld) Automated neutrophil % High 43.0-75.0 [facility] No Panel Informationon 03-10 Eosinophils # (Auto) 0.2 10 3/uL 0.0-0.7 [facility] Immature Granulocyte # (Auto) 0.04 10 3/uL High 0.00-0.03 [facility] Platelet mean volume Auto (B ld) [Entitic vol]on 03-10-2024 Platelet mean volume (Bld) [Entitic vol] 11.5 fL 9.5-13.5 [facility] Platelet mean volume (Bld) [Entitic vol] Platelet mean volume [Entitic volume] in Blood by Automated count 9.5-13.5 [facility] Platelets Auto (Bld) [#/Vol] on 03-10-2024 Platelets (Bld) [#/Vol] 289 10 3/uL 150-450 [facility] Platelets (Bld) [#/Vol] Platelets [#/vol ume] in Blood by Automated count 150-450 [facility] RBC Auto (Bld) [#/Vol]on RBC (Bld) [#/Vol] 4.43 10 6/uL 4.20-5.40 [facility] RBC (Bld) [#/Vol] Erythrocytes [#/volu me] in Blood by Automated count 4.20-5.40 [facility] Serum or plasma anion gap de terminationon 03-10-2024 Anion gap [Moles/Vol] 14.5 mmol/L [facility] Anion gap [Moles/Vol] Serum or plasma an ion gap determination [facility] Basic Metabolic Panelon 02-12 Anion gap [Moles/Vol] 12 mmol/L 5 - 15 mmol/L [facility] Calcium [Mass/Vol] 9.8 mg/dL 8.5 - 10. 5 mg/dL [facility] Chloride [Moles/Vol] 105 mmol/L 98 - 10 9 mmol/L [facility] CO2 [Moles/Vol] 26 mmol/L 22 - 32 mmol/L [facility] Creatinine [Mass/Vol] 1.01 mg/dL High 0.40 - 1.00 mg/dL [facility] Comment on above: METHOD TRACEABLE TO [facility] STANDARD eGFR (CKD-EPI)non-race dependent 57 Low - PINF [facility] Comment on above: Reported eGFR is based on the CKD-EPI 2020 equation that does not use a race coefficient. Glucose [Mass/Vol] 91 mg/dL 65 - 99 mg/dL [facility] Interpretation and review of laboratory results Abnormal [facility] Potassium [Moles/Vol] 3.8 mmol/L 3.5 - 5.0 mmol/L [facility] Sodium [Moles/Vol] 143 mmol/L 134 - 146 mmol/L [facility] Urea nitrogen [Mass/Vol] 19 mg/dL 5 - 27 mg/dL [facility] CBC auto differentialon 02-12 Basophils (Bld) [#/Vol] 0.2 10*3/uL [facility] Basophils/100 WBC (Bld) 2.5 % [facility] Eosinophils (Bld) [#/Vol] 0.2 10*3/uL [facility] Eosinophils/100 WBC (Bld) 2.2 % [facility] Erythrocyte distribution width (RBC) [Ratio] 16.2 % High 11.5 - 15.0 % [facility] Hematocrit (Bld) [Volume fraction] 42 % 35 - 47 % [facility] Hemoglobin (Bld) [Mass/Vol] 14 g/dL 11.7 - 15.5 g/dL [facility] Interpretation and review of laboratory results Abnormal [facility] Lymphocytes (Bld) [#/Vol] 1.6 10*3/uL [facility] Lymphocytes/100 WBC (Bld) 22.9 % [facility] MCH (RBC) [Entitic mass] 30.7 pg 27 - 34 pg [facility] MCHC (RBC) [Mass/Vol] 33.3 g/dL 32 - 3 6 g/dL [facility] MCV (RBC) [Entitic vol] 92 fL 80 - 100 fL [facility] Monocytes (Bld) [#/Vol] 0.7 10*3/uL [facility] Monocytes/100 WBC (Bld) 10.4 % [facility] Neutrophils (Bld) [#/Vol] 4.3 10*3/uL [facility] Neutrophils/100 WBC (Bld) 62 % [facility] Platelet mean volume (Bld) [Entitic vol] 9.4 fL 7 - 12 fL [facility] Platelets (Bld) [#/Vol] 241 10*3/uL [facility] RBC (Bld) [#/Vol] 4.55 10*6/uL [facility] WBC corrected for nucl RBC Auto (Bld) [#/Vol] 7 [facility] CSF spinal fluid cell counto n 03-04-2024 Clarity (CSF) CLEAR [facility] Color (CSF) COLORLESS [facility] Color (Spun CSF) COLORLESS [facility] Interpretation and review of laboratory results Abnormal [facility] Laboratory comment Arun (Report) TUBE 3 [facility] Lymphocytes/100 WBC Manual cnt (CSF) 97 % High 0 [facility] Monocytes/100 WBC Manual cnt (CSF) 3 % High 0 [facility] Nucleated cells Manual cnt (CSF) [#/Vol] 0.091 10*3/uL High 0 - 5 /uL [facility] RBC Manual cnt (CSF) [#/Vol] 2 /uL High 0 - 1 /uL [facility] Csf total proteinon 03-04-20 Protein (CSF) [Mass/Vol] 57 mg/dL High 15 - 45 mg/dL [facility] Glucose, CSFon 03-04-2024 Glucose (CSF) [Mass/Vol] 64 mg/dL 40 - 70 mg/dL [facility] Guidance for puncture of Lum bar spineon 03-04-2024 Fredrick Rain MD - 03/04/2024 Pre-procedure diagnosis: See history below Post-procedure diagnosis: Same as above Assistants/resident: See the technologist's notes above Consent/pre-procedure evaluation: See below. [facility] protocol timeout verification performed. Estimated blood loss: [...] Antonio Rain MD on 03/04/2024 10:21 AM [facility] Radiology Study observation (narrative) [facility] Guidance for puncture of Lum bar spineOrdered By: Fredrick Rain on 03-04-2024 [facility] Work Phone: Meningitis+Encephalitis path ogens DNA and RNA panel KIMMY+non-probe (CSF)on 03-04-2024 C. gattii+neoformans DNA KIMMY+non-probe Ql (CSF) Not detected Not Detected^N ot Detected [facility] CMV DNA KIMMY+non-probe Ql (CSF) Not detected Not Detected^N ot Detected [facility] E. coli K1 DNA KIMMY+non-probe Ql (CSF) Not detected Not Detected^N ot Detected [facility] Enterovirus RNA KIMMY+non-probe Ql (CSF) Not detected Not Detected^N ot Detected [facility] H. influenzae DNA KIMMY+non-probe Ql (CSF) Not detected Not Detected^N ot Detected [facility] HHV 6 DNA KIMMY+non-probe Ql (CSF) Not detected Not Detected^N ot Detected [facility] HSV 1 DNA KIMMY+non-probe Ql (CSF) Not detected Not Detected^N ot Detected [facility] HSV 2 DNA KIMMY+non-probe Ql (CSF) Not detected Not Detected^N ot Detected [facility] Interpretation and review of laboratory results Abnormal [facility] L. monocytogenes DNA KIMMY+non-probe Ql (CSF) Not detected Not Detected^N ot Detected [facility] N. meningitidis DNA KIMMY+non-probe Ql (CSF) Not detected Not Detected^N ot Detected [facility] Parechovirus A RNA KIMMY+non-probe Ql (CSF) Not detected Not Detected^N ot Detected [facility] S. agalactiae DNA KIMMY+non-probe Ql (CSF) Not detected Not Detected^N ot Detected [facility] S. pneumoniae DNA KIMMY+non-probe Ql (CSF) Not detected Not Detected^N ot Detected [facility] Specimen source Nom (Body fld) CEREBROSPINAL FLUID [facility] VZV DNA KIMMY+non-probe Ql (CSF) Detected Abnormal Not Detected^N ot Detected [facility] Comment on above: Varicella zoster vir us (VZV) detected by PCR. [facility] No Panel Informationon 03-04 [facility] Protein (CSF) [Mass/Vol]on 1 Interpretation and review of laboratory results Abnormal [facility] XR Chest Single viewon 03-04 History: [...] Herminio Sahni MD on 03/04/2024 12:39 PM SECTRAKSHerminio Sandoval MD - 03/04/2024 History: hypoxic Exam/Technique: [...] Herminio Sahni MD on 03/04/2024 12:39 PM [facility] Radiology Study observation (narrative) [facility] XR Chest Single viewOrdered By: Herminio Sahni on 03-04-2024 [facility] Work Phone: Basic Metabolic Panelon 02-12 Anion gap [Moles/Vol] 15 mmol/L 5 - 15 mmol/L [facility] Calcium [Mass/Vol] 9.6 mg/dL 8.5 - 10. 5 mg/dL [facility] Chloride [Moles/Vol] 107 mmol/L 98 - 10 9 mmol/L [facility] CO2 [Moles/Vol] 20 mmol/L Low 22 - 32 mmol/L [facility] Creatinine [Mass/Vol] 1.1 mg/dL High 0.40 - 1.00 mg/dL [facility] Comment on above: METHOD TRACEABLE TO [facility] STANDARD eGFR (CKD-EPI)non-race dependent 52 Low - PINF [facility] Comment on above: Reported eGFR is based on the CKD-EPI 2020 equation that does not use a race coefficient. Glucose [Mass/Vol] 90 mg/dL 65 - 99 mg/dL [facility] Interpretation and review of laboratory results Abnormal [facility] Potassium [Moles/Vol] 4.3 mmol/L 3.5 - 5.0 mmol/L [facility] Sodium [Moles/Vol] 142 mmol/L 134 - 146 mmol/L [facility] Urea nitrogen [Mass/Vol] 22 mg/dL 5 - 27 mg/dL [facility] CBC auto differentialon 02-12 Basophils (Bld) [#/Vol] 0.1 10*3/uL [facility] Basophils/100 WBC (Bld) 1.2 % P [facility] Eosinophils (Bld) [#/Vol] 0.1 10*3/uL [facility] Eosinophils/100 WBC (Bld) 1.7 % [facility] Erythrocyte distribution width (RBC) [Ratio] 16.2 % High 11.5 - 15.0 % [facility] Hematocrit (Bld) [Volume fraction] 43.7 % 35 - 47 % [facility] Hemoglobin (Bld) [Mass/Vol] 14.9 g/dL 11.7 - 15.5 g/dL [facility] Interpretation and review of laboratory results Abnormal [facility] Lymphocytes (Bld) [#/Vol] 2.4 10*3/uL [facility] Lymphocytes/100 WBC (Bld) 28.1 % [facility] MCH (RBC) [Entitic mass] 31 pg 27 - 34 pg [facility] MCHC (RBC) [Mass/Vol] 34 g/dL 32 - 3 6 g/dL [facility] MCV (RBC) [Entitic vol] 91 fL 80 - 100 fL [facility] Monocytes (Bld) [#/Vol] 0.8 10*3/uL [facility] Monocytes/100 WBC (Bld) 9.4 % [facility] Neutrophils (Bld) [#/Vol] 5.1 10*3/uL [facility] Neutrophils/100 WBC (Bld) 59.6 % [facility] Platelet mean volume (Bld) [Entitic vol] 9.1 fL 7 - 12 fL [facility] Platelets (Bld) [#/Vol] 267 10*3/uL [facility] RBC (Bld) [#/Vol] 4.79 10*6/uL [facility] WBC corrected for nucl RBC Auto (Bld) [#/Vol] 8.5 [facility] Urinalysison 03-03-2024 Bilirubin Ql (U) Negative Negative^N egative [facility] Color (U) YELLOW YELLOW^YEL LOW [facility] Glucose (U) [Mass/Vol] Negative Negat derrell^N egative mg/dL [facility] Hemoglobin Auto test strip Ql (U) Negative Negative^N egative [facility] Interpretation and review of laboratory results Abnormal [facility] Ketones (U) [Mass/Vol] Trace Abnormal Negat derrell^N egative mg/dL [facility] Leukocyte esterase Auto test strip Ql (U) Negative Negative^N egative [facility] Nitrite Auto test strip Ql (U) Negative Negative^N egative [facility] pH (U) 6 [pH] 5.0 - 8.5 [facility] Protein (U) [Mass/Vol] Negative Negat derrell^N egative mg/dL [facility] Specific gravity Refractometry automated (U) [Rel density] 1.019 1.003 - 1.035 [facility] Turbidity Ql (U) CLEAR CLEAR^PIYUSH R [facility] Urobilinogen Qn (U) NINF [facility] CBC auto differentialon 02-12 Basophils (Bld) [#/Vol] 0.1 10*3/uL [facility] Basophils/100 WBC (Bld) 0.6 % [facility] Eosinophils (Bld) [#/Vol] 0.1 10*3/uL [facility] Eosinophils/100 WBC (Bld) 0.6 % [facility] Erythrocyte distribution width (RBC) [Ratio] 16.3 % High 11.5 - 15.0 % [facility] Hematocrit (Bld) [Volume fraction] 42.8 % 35 - 47 % [facility] Hemoglobin (Bld) [Mass/Vol] 14.3 g/dL 11.7 - 15.5 g/dL [facility] Interpretation and review of laboratory results Abnormal [facility] Lymphocytes (Bld) [#/Vol] 1.9 10*3/uL [facility] Lymphocytes/100 WBC (Bld) 20.7 % [facility] MCH (RBC) [Entitic mass] 30.6 pg 27 - 34 pg [facility] MCHC (RBC) [Mass/Vol] 33.5 g/dL 32 - 3 6 g/dL [facility] MCV (RBC) [Entitic vol] 91 fL 80 - 100 fL [facility] Monocytes (Bld) [#/Vol] 1 10*3/uL High P [facility] [facility] Monocytes/100 WBC (Bld) 11.1 % [facility] Neutrophils (Bld) [#/Vol] 6.3 10*3/uL [facility] Neutrophils/100 WBC (Bld) 67 % [facility] Platelet mean volume (Bld) [Entitic vol] 8.9 fL 7 - 12 fL [facility] Platelets (Bld) [#/Vol] 224 10*3/uL [facility] RBC (Bld) [#/Vol] 4.69 10*6/uL [facility] WBC corrected for nucl RBC Auto (Bld) [#/Vol] 9.3 [facility] Basophils (Bld) [#/Vol] 0.1 10*3/uL [facility] Basophils/100 WBC (Bld) 0.7 % [facility] Eosinophils (Bld) [#/Vol] 0 10*3/uL [facility] Eosinophils/100 WBC (Bld) 0.1 % [facility] Erythrocyte distribution width (RBC) [Ratio] 16 % High 11.5 - 15.0 % [facility] Hematocrit (Bld) [Volume fraction] 43.5 % 35 - 47 % [facility] Hemoglobin (Bld) [Mass/Vol] 14.5 g/dL 11.7 - 15.5 g/dL [facility] Interpretation and review of laboratory results Abnormal [facility] Lymphocytes (Bld) [#/Vol] 1.8 10*3/uL [facility] Lymphocytes/100 WBC (Bld) 17.5 % [facility] MCH (RBC) [Entitic mass] 30.7 pg 27 - 34 pg [facility] MCHC (RBC) [Mass/Vol] 33.3 g/dL 32 - 3 6 g/dL [facility] MCV (RBC) [Entitic vol] 92 fL 80 - 100 fL [facility] Monocytes (Bld) [#/Vol] 1 10*3/uL [facility] Monocytes/100 WBC (Bld) 9.9 % [facility] Neutrophils (Bld) [#/Vol] 7.4 10*3/uL High [facility] Neutrophils/100 WBC (Bld) 71.8 % [facility] Platelet mean volume (Bld) [Entitic vol] 9.3 fL 7 - 12 fL [facility] Platelets (Bld) [#/Vol] 235 10*3/uL [facility] RBC (Bld) [#/Vol] 4.71 10*6/uL [facility] WBC corrected for nucl RBC Auto (Bld) [#/Vol] 10.4 [facility] Comprehensive metabolic pane meagan 03-02-2024 Albumin [Mass/Vol] 3.9 g/dL 3.2 - 5.3 g/dL [facility] ALP [Catalytic activity/Vol] 58 U/L 39 - 130 U/L [facility] ALT No additional P-5'-P [Catalytic activity/Vol] 15 U/L 0 - 31 U/L [facility] Anion gap [Moles/Vol] 11 mmol/L 5 - 15 mmol/L [facility] AST [Catalytic activity/Vol] 15 U/L 0 - 41 U/L [facility] Bilirubin [Mass/Vol] 0.3 mg/dL 0.3 - 1 .2 mg/dL [facility] Calcium [Mass/Vol] 9.5 mg/dL 8.5 - 10. 5 mg/dL [facility] Chloride [Moles/Vol] 107 mmol/L 98 - 10 9 mmol/L [facility] CO2 [Moles/Vol] 23 mmol/L 22 - 32 mmol/L [facility] Creatinine [Mass/Vol] 1.36 mg/dL High 0.40 - 1.00 mg/dL [facility] Comment on above: METHOD TRACEABLE TO [facility] STANDARD eGFR (CKD-EPI)non-race dependent 40 Low - PINF [facility] Comment on above: Reported eGFR is based on the CKD-EPI 2020 equation that does not use a race coefficient. Glucose [Mass/Vol] 84 mg/dL 65 - 99 mg/dL [facility] Interpretation and review of laboratory results Abnormal [facility] Potassium [Moles/Vol] 4 mmol/L 3.5 - 5.0 mmol/L [facility] Protein [Mass/Vol] 6.1 g/dL 6.0 - 8.0 g/dL [facility] Sodium [Moles/Vol] 141 mmol/L 134 - 146 mmol/L [facility] Urea nitrogen [Mass/Vol] 30 mg/dL High 5 - 27 mg/dL [facility] Albumin [Mass/Vol] 4 g/dL 3.2 - 5.3 g/dL [facility] ALP [Catalytic activity/Vol] 62 U/L 39 - 130 U/L [facility] ALT No additional P-5'-P [Catalytic activity/Vol] 15 U/L 0 - 31 U/L [facility] Anion gap [Moles/Vol] 12 mmol/L 5 - 15 mmol/L [facility] AST [Catalytic activity/Vol] 17 U/L 0 - 41 U/L [facility] Bilirubin [Mass/Vol] 0.4 mg/dL 0.3 - 1 .2 mg/dL [facility] Calcium [Mass/Vol] 9.7 mg/dL 8.5 - 10. 5 mg/dL [facility] Chloride [Moles/Vol] 103 mmol/L 98 - 10 9 mmol/L [facility] CO2 [Moles/Vol] 23 mmol/L 22 - 32 mmol/L [facility] Creatinine [Mass/Vol] 1.45 mg/dL High 0.40 - 1.00 mg/dL [facility] Comment on above: METHOD TRACEABLE TO [facility] STANDARD eGFR (CKD-EPI)non-race dependent 37 Low - PINF [facility] Comment on above: Reported eGFR is based on the CKD-EPI 2020 equation that does not use a race coefficient. Glucose [Mass/Vol] 85 mg/dL 65 - 99 mg/dL [facility] Interpretation and review of laboratory results Abnormal [facility] Potassium [Moles/Vol] 4.8 mmol/L 3.5 - 5.0 mmol/L [facility] Protein [Mass/Vol] 6.5 g/dL 6.0 - 8.0 g/dL [facility] Sodium [Moles/Vol] 138 mmol/L 134 - 146 mmol/L [facility] Urea nitrogen [Mass/Vol] 29 mg/dL High 5 - 27 mg/dL [facility] DISCONTINUE IN PROCESS EEG T ESTINGOrdered By: Documentation Systemgenerated on 03-02-2024 [facility] Work Phone: Holter monitor studyon 03-02 Images from the orig inal result were not included. [facility] Video/EEG Monitoring REPORT EEG Service Date(s): 03/02/24 from 06:05 until 11:16 Date of Report: 03/02/24 History: Aaron Lewis is 79 y.o. female with acute shingles and confusion who is undergoing video/EEG monitoring to evaluate for seizures. Centrally active medications: Buspar, nortriptyline. Procedure: This video/EEG monitoring was acquired with electrodes placed according to the [id number] electrode placement system,using collodion. The EEG was [...] on this day. Dina Lucio M.D., Ph.D. Metal Washing Machine Operator [facility] MANUALLY TRANSCRIBED RESULTS 1Lay Images from the orig inal result were not included. [facility] Video/EEG Monitoring REPORT EEG Service Date(s): 03/02/24 from 02:47 until 06:05 Date of Report: 03/02/24 History: Aaron Lewis is 79 y.o. female with acute shingles and confusion who is undergoing video/EEG monitoring to evaluate for seizures. Centrally active medications: Buspar, nortriptyline. Procedure: This video/EEG monitoring was acquired with electrodes placed according to the [id number] electrode placement system,using collodion. The EEG was [...] of intermittent seizures. Dina Lucio M.D., Ph.D. [employer] Washing Machine Operator [facility] MANUALLY TRANSCRIBED RESULTS Holter monitor studyOrdered By: Dina Lucio on 03-02-2024 [employer] Work Phone: MR Brain WO and W [...] MD on 03/02/2024 6:58 PM [facility] [employer] [facility] Radiology Study observation (narrative) [facility] MR Brain WO and W contrast I VOrdered By: Migue Driver on 03-02-2024 [facility] Work Phone: Protime & INRon 03-02-2024 INR Coag (PPP) [Relative time] 0.9 {INR} [facility] PT Coag (PPP) [Time] 10.[address] [facility] Basophils Auto (Bld) [#/Vol] on 03-01-2024 Basophils (Bld) [#/Vol] 0.0 10 3/uL 0.0-0.1 [facility] Basophils (Bld) [#/Vol] Automated basophil count 0.0-0.1 [facility] Basophils/100 WBC Auto (Bld) on 03-01-2024 Basophils/100 WBC (Bld) 0.3 % 0.2-2.0 [facility] Basophils/100 WBC (Bld) Automated basophil % 0. 2-2.0 [facility] Eosinophils/100 WBC Auto (Bl d)on 03-01-2024 Eosinophils/100 WBC (Bld) 0.1 % Low 0.9-7.0 [facility] Eosinophils/100 WBC (Bld) Automated eosinophil % Low 0.9-7.0 [facility] Erythrocyte distribution wid th Auto (RBC) [Ratio]on 03-01-2024 Erythrocyte distribution width (RBC) [Ratio] 15.3 % High 11.0-15.0 [facility] Erythrocyte distribution width (RBC) [Ratio] Erythrocyte distribution width [Ratio] by Automated count High 11.0-15.0 [facility] Estimated glomerular filtrat ion rate (GFR) non- Americanon 03-01-2024 GFR/1.73 sq M.predicted among non-blacks MDRD (S/P/Bld) [Vol rate/Area] 26 mL/min/{1.73_m2} Low >=60 mL/min/1.7 3m 2 [facility] GFR/1.73 sq M.predicted among non-blacks MDRD (S/P/Bld) [Vol rate/Area] Estimated glomerular filtration rate (GFR) non- Low >=60 mL/min/1.7 3m 2 [facility] Globulin Calc (S) [Mass/Vol] on 03-01-2024 Globulin (S) [Mass/Vol] 3.5 g/dL [facility] Globulin (S) [Mass/Vol] Serum globulin measurement by calculation (mass/volume) [facility] Hematocrit Auto (Bld) [Volum e fraction]on 03-01-2024 Hematocrit (Bld) [Volume fraction] 46.0 % 36.0-48.0 [facility] Hematocrit (Bld) [Volume fraction] Hematocrit [Volume Fraction] of Blood by Automated count 36.0-48.0 [facility] Hemoglobin [Mass/volume] in Bloodon 03-01-2024 Hemoglobin (Bld) [Mass/Vol] 14.8 g/dL 12.0-16.0 [facility] Hemoglobin (Bld) [Mass/Vol] Hemoglobin [Mass/volume] in Blood 12.0-16.0 [facility] INR in Platelet poor plasma by Coagulation assayon 03-01-2024 INR Coag (PPP) [Relative time] 0.97 {INR} [facility] Comment on above: DESIRED INR:2.0-3.0 CONDITIONS NOT LISTED BELOW2.5-3.5 FOR PROSTHETIC HEART VALVE REPLACEMENT2.5-3.5 RECURRENT THROMBOSIS INR Coag (PPP) [Relative time] INR in Platelet poor plasma by Coagulation assay [facility] Comment on above: DESIRED INR:2.0-3.0 CONDITIONS NOT LISTED BELOW2.5-3.5 FOR PROSTHETIC HEART VALVE REPLACEMENT2.5-3.5 RECURRENT THROMBOSIS Laboratory - Chemistry and C hemistry - challengeon 03-01-2024 Bilirubin Ql (U) Negative NEGATIVE [facility] Glucose (U) [Mass/Vol] Negative NEGATIVE [facility] Ketones Ql (U) TRACE mg/dL Abnormal NEGATIVE [facility] pH (U) 6.0 [pH] 5.0-9.0 [facility] Specific gravity (U) [Rel density] 1.020 1.005-1.02 5 [facility] Urobilinogen Qn (U) 0.2 {Nevaeh'U}/dL 0.2-1.0 [facility] Albumin [Mass/Vol] 3.5 g/dL 3.4-5.0 [facility] ALP [Catalytic activity/Vol] 76 U/L 46-116 [facility] ALT [Catalytic activity/Vol] 24 U/L 14-59 [facility] AST [Catalytic activity/Vol] 15 U/L 15-37 [facility] Bilirubin [Mass/Vol] 0.5 mg/dL 0.2-1.0 [facility] Calcium [Mass/Vol] 10.3 mg/dL High 8.5-10.1 [facility] Chloride [Moles/Vol] 103 mmol/L 98-107 [facility] CO2 [Moles/Vol] 19.7 mmol/L Low 21.0-32.0 [facility] Creatinine [Mass/Vol] 1.86 mg/dL High 0.55-1.02 [facility] GFR/1.73 sq M.predicted MDRD (S/P/Bld) [Vol rate/Area] 32 mL/min/{1.73_m2} Low >=60 mL/min/1.7 3m 2 [facility] Glucose [Mass/Vol] 105 mg/dL 74-106 [facility] Lactate [Moles/Vol] 1.1 mmol/L 0.4-2.0 [facility] Magnesium [Mass/Vol] 2.8 mg/dL High 1.8-2.4 [facility] Potassium [Moles/Vol] 4.8 mmol/L 3.5-5.1 [facility] Protein [Mass/Vol] 7.0 g/dL 6.4-8.2 [facility] Sodium [Moles/Vol] 138 mmol/L 136-145 [facility] Urea nitrogen [Mass/Vol] 29.0 mg/dL High 7.0-18.0 [facility] Urea nitrogen/Creatinine [Mass ratio] 15.6 mg/mg [facility] Laboratory - Hematology and Cell countson 03-01-2024 Immature granulocytes/100 WBC (Bld) 0.7 % High 0.0-0.5 [facility] Laboratory - Specimen inform ationon 03-01-2024 Appearance (U) CLEAR CLEAR [facility] Color (U) LT. YELLOW YELLOW [facility] Laboratory - Urinalysison Leukocyte esterase Test strip Ql (U) Negative NEGATIVE [facility] Nitrite Ql (U) Negative NEGATIVE [facility] Protein Ql (U) Negative NEG/TRACE [facility] Leukocytes [#/volume] correc kyleigh for nucleated erythrocytes in Blood by Automated counon 03-01-2024 WBC corrected for nucl RBC Auto (Bld) [#/Vol] 9.8 10 3/uL 4.0-11.0 [facility] WBC corrected for nucl RBC Auto (Bld) [#/Vol] Leukocytes [#/volume] corrected for nucleated erythrocytes in Blood by Automated coun 4.0-11.0 [facility] Lymphocytes Auto (Bld) [#/Vo l]on 03-01-2024 Lymphocytes (Bld) [#/Vol] 1.2 10 3/uL 1.2-3.8 [facility] Lymphocytes (Bld) [#/Vol] Lymphocytes [#/volume] in Blood by Automated count 1.2-3.8 [facility] Lymphocytes/100 WBC Auto (Bl d)on 03-01-2024 Lymphocytes/100 WBC (Bld) 12.3 % Low 20.5-60.0 [facility] Lymphocytes/100 WBC (Bld) Lymphocytes/100 leukocytes in Blood by Automated count Low 20.5-60.0 [facility] MCH Auto (RBC) [Entitic mass ]on 03-01-2024 MCH (RBC) [Entitic mass] 29.7 pg 26.7-34.0 [facility] MCH (RBC) [Entitic mass] MCH [Entitic mass] by Automated count 26.7-34.0 [facility] MCHC Auto (RBC) [Mass/Vol]on 03-01-2024 MCHC (RBC) [Mass/Vol] 32.2 g/dL 29.9-35.2 [facility] MCHC (RBC) [Mass/Vol] MCHC [Mass/volume] by Automated count 29.9-35.2 [facility] MCV Auto (RBC) [Entitic vol] on 03-01-2024 MCV (RBC) [Entitic vol] 92.4 fL 81.0-99.0 [facility] MCV (RBC) [Entitic vol] MCV [Entitic vol ume] by Automated count 81.0-99.0 [facility] Monocytes Auto (Bld) [#/Vol] on 03-01-2024 Monocytes (Bld) [#/Vol] 0.8 10 3/uL 0.3-0.8 [facility] Monocytes (Bld) [#/Vol] Automated blood monocyte count 0.3-0.8 [facility] Monocytes/100 WBC Auto (Bld) on 03-01-2024 Monocytes/100 WBC (Bld) 8.1 % 1.7-12.0 [facility] Monocytes/100 WBC (Bld) Automated monocyte % 1. 7-12.0 [facility] Neutrophils Auto (Bld) [#/Vo l]on 03-01-2024 Neutrophils (Bld) [#/Vol] 7.7 10 3/uL High 1.4-6.5 [facility] Neutrophils (Bld) [#/Vol] Neutrophils [#/volume] in Blood by Automated count High 1.4-6.5 [facility] Neutrophils/100 WBC Auto (Bl d)on 03-01-2024 Neutrophils/100 WBC (Bld) 78.5 % High 43.0-75.0 [facility] Neutrophils/100 WBC (Bld) Automated neutrophil % High 43.0-75.0 [facility] No Panel Informationon 03-01 Urine Microscopic Review NO [facility] Urine Occult Blood Negative NEGATIVE [facility] Eosinophils # (Auto) 0.0 10 3/uL 0.0-0.7 [facility] Immature Granulocyte # (Auto) 0.07 10 3/uL High 0.00-0.03 [facility] Platelet mean volume Auto (B ld) [Entitic vol]on 03-01-2024 Platelet mean volume (Bld) [Entitic vol] 10.9 fL 9.5-13.5 [facility] Platelet mean volume (Bld) [Entitic vol] Platelet mean volume [Entitic volume] in Blood by Automated count 9.5-.5 [facility] Platelets Auto (Bld) [#/Vol] on 03-01-2024 Platelets (Bld) [#/Vol] 276 10 3/uL 150-450 [facility] Platelets (Bld) [#/Vol] Platelets [#/vol ume] in Blood by Automated count 150-450 [facility] Prothrombin time (PT)on 02-11 PT Coag (PPP) [Time] 10.3 s 9.0-11.6 [facility] PT Coag (PPP) [Time] Prothrombin time (PT) 9.0- 11.6 [facility] RBC Auto (Bld) [#/Vol]on RBC (Bld) [#/Vol] 4.98 10 6/uL 4.20-5.40 [facility] RBC (Bld) [#/Vol] Erythrocytes [#/volu me] in Blood by Automated count .20-5.40 [facility] Serum or plasma albumin/glob ulin mass ratioon 03-01-2024 Albumin/Globulin [Mass ratio] 1.0 {ratio} [facility] Albumin/Globulin [Mass ratio] Serum or plasma albumin/globulin mass ratio [facility] Serum or plasma anion gap de terminationon 03-01-2024 Anion gap [Moles/Vol] 20.1 mmol/L [facility] Anion gap [Moles/Vol] Serum or plasma an ion gap determination [facility] Patient Letter FTon 2023 Patient Letter [facility] Patient Letter [facility] January 28, 2024 AARON LEWIS [address] [facility] [place] [address] : 1945 Dear Aaron Lewis, We have been trying to reach you with no success. It is important that you return our call upon receiving this letter. Also, at the time of your call, please provide us with your current information. Thank you for your prompt attention to this matter. Sincerely, [facility] [address] [place] [address] [facility] Ambulatory Visit Summaryon 0 12-25-2023 Ambulatory [...] URL When: Where: [address] [place] [address] [phone] Medications What How Much When Instructions Unchanged [...] tubing an (more content not included)... [facility] Urology Office/Clinic Noteon 12-25-2023 Urology Office/Clinic [...] Contact Information MIAH ROE, BRENDA Poole, URL [address] [facility] [place] [address] [phone] Additional Instructions: nurse visit in 1 wk [...] than 30 (more content not included)... [facility] Comment on above: Result Comment: Elec tronically Signed By: BRENDA MARIN PA-C\.br\Date and Time Signed: 12/25/23 13:09 EDT\.br\Electronically Co-Signed By: Abby Colon\.br\Date and Time Co-Signed: 12/25/23 13:07 EDT Estimated glomerular filtrat ion rate (GFR) non- Americanon 12-18-2023 GFR/1.73 sq M.predicted among non-blacks MDRD (S/P/Bld) [Vol rate/Area] 50 mL/min/{1.73_m2} Low >=60 [facility] Laboratory - Chemistry and C hemistry - challengeon 12-18-2023 Creatinine [Mass/Vol] 1.07 mg/dL High 0.55-1.02 [facility] GFR/1.73 sq M.predicted MDRD (S/P/Bld) [Vol rate/Area] mL/min/{1.73_m2} >=60 [facility] Inpatient Patient Summaryon 12-03-2023 Inpatient Patient Summary Inpatient Patient Summary [place] [id number] Clinical Summary Person Information Name: AARON LEWIS Age: 78 Years : 1945 Sex: Female PCP: JEREMIAH REED MD Marital Status: Phone: [phone] Race: White Ethnicity: Non- or Language: Spanish Visit Id: Visit Reason: URINARY INCONTINENCE Speciality: Acuity: Enc Type: Outpatient Med Service: Surgery Arrival: 12/03/2023 13:41:56 Discharge: Dispo Type: Address: [address] [place] [address] [place] [id number] Provider Notes: Diagnosis: Problems Active Recurrent UTI [...] Follow up: With: Address: When: BRENDA MARIN [address] [place] [phone] [facility] (1) Comments: Call for followup appointment with Georgette Marin PA-C within the next three weeks or so. Push fluids to keep the urine clear. Expect the Botox to start working within the next 2-3 weeks. Have a great day! Patient Education Information: EU - Cystoscopy with Botox Injection Discharge Instructions (Custom) [facility] Main OR Intraoperative Recor don 12-03-2023 Main OR Intraoperative Record Main OR Intraoperative Record IntraOp Document Type FTURO Summary Primary Physician: Cayden GALLO MD Finalized Date/Time: 12/03/23 14:30:52 Pt. Name: AARON LEWIS Flori Odom/Sex: 1945 Female Med Rec #: [id number] Physician: Cayden GALLO MD Financial #: [id number] Pt. Type: O Room/Bed: / Admit/Disch: 12/03/23 13:41:56 - Institution: Case Times FTURO Entry 1 Patient Times In Room 12/03/23 14:15:00 Out Room 12/03/23 14:30:00 Procedure Times Start 12/03/23 14:21:00 Stop 12/03/23 14:23:00 Anesthesia Times Last Modified By: Neva Palacio 12/03/23 14:30:41 General Comments: BOTOX 100 UNITS EXP: LOT: [id number].GIORGIO MELENDEZ. Case Attendance FTURO Entry 1 Entry 2 Entry 3 Case Attendee Cayden GALLO MD, Kelsie E McClain TRAFFIC CONTROL SIGNALERKenisha Role Performed Surgeon - Primary Telecommunications Cable Jointer - Primary Scrub - Primary Time In [...] 12/03/23 14:30 Neva Palacio 12/03/23 14:30 [facility] Main OR Preoperative Recordo n 12-03-2023 Main OR Preoperative Record Main OR Preoperative Record Holding Area Document Type FTURO Summary Primary Physician: Cayden GALLO MD Finalized Date/Time: 12/03/23 14:21:15 Pt. Name: AARON LEWIS Flori Muñiz./Sex: 1945 Female Med Rec #: [id number] Physician: Cayden GALLO MD Financial #: [id number] Pt. Type: O Room/Bed: / Admit/Disch: 12/03/23 [...] Complaints of Pain: No Skin Integrity Intact, [place], Warm, & Dry Vitals - EU Blood Pressure 125/72 Pulse 100 bpm Respirations 20 br/min SPO2 95 % Additional Other (See Comment) Specimens Comment ua dip Specimens Collected RN Reviewed Yes Last Modified By: Neva Palacio 12/03/23 14:20:47 Finalized By: Neva Palacio Document Signatures Signed By: Neva Palacio 12/03/23 14:20 Neva Palacio 12/03/23 14:20 [place] w[place] LPN 12/03/23 14:03 Neva Palacio 12/03/23 14:21 [facility] Operative Reporton Operative Report Operative Report Patient: AARON LEWIS Age: 78 years Sex: Female : 1945 Associated Diagnoses: None Author: Cayden GALLO MD Procedure Operative Information Details: Date/ Time: 12/03/2023 14:28:00. Pre-Op Dx: Overactive bladder (IFE70-CM N32.81, Working, Medical). Post-Op Dx: Same. Anesthesia [...] about 3 weeks. Finish abx. . [facility] Comment on above: Result Comment: Elec tronically Signed By: Cayden GALLO MD\.br\Date and Time Signed: 12/03/23 14:29 EDT Outpatient Surgery Discharge Instructionon 12-03-2023 Outpatient Surgery Discharge Instruction Outpatient Surgery Discharge Instruction [place] [id number] Patient Discharge Instructions PERSON INFORMATION Name: AARON [...] Follow up: With: Address: When: BRENDA MARIN [address] [place] [phone] [facility] (1) Comments: Call for followup appointment [...] serve you. Thank you for choosing [facility] Ambulatory Visit Summaryon 0 09-26-2023 Ambulatory [...] dietz MD Where: [address] [place] [address] [phone] Medications What How Much When Instructions Unchanged [...] including vitamins, herbs, eye drops, creams, and dkbk-lpq-qzodldp medicines. ? Any problems you or family [...] are or (more content not included)... [facility] Patient Educationon 09-26-19 Patient Education Urology [...] including vitamins, herbs, eye drops, creams, and ccbr-skt-dgzlkup medicines. ? Any problems you or family [...] tells you to take them. ? Taking osnw-xvn-wewdziw medicines, vitamins, herbs, and supplements. General instructions [...] these instructions at home: Medicines ? Take txnn-urm-qcypjeu and prescription medicines only as told by [...] health ca (more content not included)... [facility] Urology Office/Clinic Noteon 09-26-2023 Urology Office/Clinic [...] When Contact Information BRENDA MARIN PA-C, URL [address] [place] [address] [phone] Additional Instructions: sched Botox w/ MD Patient [...] tobacco c (more content not included)... [facility] Comment on above: Result Comment: Elec [...] Duration: 30 Days Refills: 11 Pickup at [facility]/pharmacy #[id number] New vibegron (Gemtesa 75 mg oral tablet) 1 Tablets By Mouth Every day Urethral stricture OAB (overactive bladder) Recurrent UTI Duration: 30 Days Refills: 11 Pickup at [facility]/pharmacy #[id number] Unchanged acetaminophen-oxycodone (acetaminophen-oxycodone 325 mg-2.5 mg oral [...] Capsules By Mouth Every day Pharmacy Information [facility]/pharmacy #[id number]: [address], [place] [phone] Allergies No Known Allergies Problems Ongoing - [...] you for choosing us for your care. [facility] Patient Educationon 08-28-19 Patient Education Obstetrics [...] health care provider. General instructions ? Take ttri-qql-kmqhsmw and prescription medicines only as told by [...] monitor yo (more content not included)... [facility] Urology Office/Clinic Noteon 08-28-2023 Urology Office/Clinic [...] day(s), # 30 tab(s), Refills(s) 11, Pharmacy: [facility]/pharmacy #[id number], 165, cm, 08/28/23 15:03:00 EDT, Height/Length Dosing, 90, kg, 08/28/23 15:03:00 EDT, Weight Dosing vibegron, 75 mg = 1 tab(s), Oral, Daily, X 30 day(s), # 30 tab(s), Refills(s) 11, [id number], 165, cm, 08/28/23 15:03:00 EDT, Height/Length Dosing, 90, kg, 08/28/23 15:03:00 EDT, Weight Dosing 20652 Measure Post Void residual urine and/or bladder capacity by US- non-imaging Body Mass Index (BMI) documented 3008F Complex E&M Add on G2211 Current tobacco non-user 1036F Depression Screening Negative 3352F E&M of Est. Patient Moderate 30-39 Min 02383 Influenza immunization status assessed 1030F Medication list [...] Urnls Dip Stick Auto w/o Microscopy POC 00135 2. Urethral stricture (N35.919: Unspecified urethral stricture, [...] day(s), # 30 tab(s), Refills(s) 11, Pharmacy: [facility]/pharmacy #[id number], 165, cm, 08/28/23 15:03:00 EDT, Height/Length Dosing, 90, kg, 08/28/23 15:03:00 EDT, Weight Dosing vibegron, 75 mg = 1 tab(s), Oral, Daily, X 30 day(s), # 30 tab(s), Refills(s) 11, Pharmacy: [facility]/pharmacy #[id number], 165, cm, 08/28/23 15:03:00 EDT, Height/Length Dosing, 90, kg, 08/28/23 15:03:00 EDT, Weight Dosing 18291 Measure Post Void residual urine and/or bladder capacity by US- non-imaging Body Mass Index (BMI) documented 3008F Complex E&M Add on G2211 Current tobacco non-user 1036F Depression Screening Negative 3352F E&M of Est. Patient Moderate 30-39 Min 89450 Influenza immunization status assessed 1030F Medication list [...] Coli, 50k Proteus (more content not included)... [facility] Comment on above: Result Comment: Elec tronically Signed By: MIAH ROE, BRENDA Poole\.br\Date and Time Signed: 08/28/23 15:38 EDT Physician Orderon 08-02-2023 Physician Order [id number]#1.00TIFF [facility] Consent for Procedure/Surger yon 07-23-2023 Consent for Procedure/Surgery [id number]#1.00TIFF [facility] Consent for Treatmenton 07-12 Consent for Treatment [id number]#1.00TIFF [facility] Inpatient Patient Summaryon 07-23-2023 Inpatient Patient Summary [address] [address] Clinical Summary Person Information Name: AARON LEWIS Age: 78 Years : 1945 Sex: Female PCP: JEREMIAH REED MD Marital Status: Phone: [phone] Race: White Ethnicity: Non- or Language: Spanish Visit Id: Visit Reason: URETHER STRICTURE AND RECURRENT UTI Speciality: Acuity: Enc Type: Outpatient Med Service: Surgery Arrival: 07/23/2023 13:44:06 Discharge: Dispo Type: Address: [address] [place] [address] [address] [place] [id number] Provider Notes: Diagnosis: Problems Active Recurrent UTI [...] GALLO MD Consulting Physician: Referring Physician: Cayden AGLLO MD Follow up: With: Address: When: BRENDA MIAH [address] [place] [address] [facility] [place] [id number] Business (1) Comments: Call for followup appointment with Georgette Marin PA-c within the next 2 months or so to monitor you. Please finish your antibiotics and have a great day. Patient Education Information: EU - Cystoscopy with Urethral Dilation Discharge Instructions (Custom) [facility] IntraOperative Documentson 0 07-23-2023 IntraOperative Documents [id number]#1.00TIFF [facility] Main OR Intraoperative Recor don 07-23-2023 Main OR Intraoperative Record IntraOp Document Type FTURO Summary Primary Physician: Cayden GALLO MD Finalized Date/Time: 07/23/23 14:33:02 Pt. Name: TAHIRAAARON/Sex: 1945 Female Med Rec #: [id number] Physician: Cayden GALLO MD Financial #: [id number] Pt. Type: O Room/Bed: / Admit/Disch: 07/23/23 [...] Son Tellez Role Performed Surgeon - Primary Telecommunications Cable Jointer - Primary Scrub - Primary Time In [...] By: Crissy Borja RN 07/23/23 14:33 [facility] Main OR Preoperative Recordo n 07-23-2023 Main OR Preoperative Record Holding Area Document Type FT[facility]O Summary Primary Physician: Cayden GALLO MD Finalized Date/Time: 07/23/23 14:14:06 Pt. Name: TAHIRAAARON/Sex: 1945 Female Med Rec #: [id number] Physician: Cayden GALLO MD Financial #: [id number] Pt. Type: O Room/Bed: / Admit/Disch: 07/23/23 13:44:06 - Institution: Case Times Holding FTURO Pre-Care Text: Verifies consent for planned procedure, identifies individual values and wishes concerning care, includes family members in perioperative teaching Secures patient's records' belongings, and valuables, maintains patient's dignity and privacy, and maintains patient confidentiality Entry 1 In Holding 07/23/23 14:04:00 Outcomes Met? Yes Last Modified By: hSahrzad ALVARES, Toña GARCIA 07/23/23 14:04:33 Post-Care Text: [...] JOSE Markham RN, Ruthann 07/23/23 14:14 [facility] Operative Reporton Operative Report Patient: AARON LEWIS Age: 78 years Sex: Female : 1945 Associated Diagnoses: None Author: Cayden GALLO MD Procedure Operative Information Details: Date/ Time: 07/23/2023 14:29:00. Pre-Op Dx: Recurrent UTI (WFG51-LM N39.0, Working, Medical), Unspecified urethral stricture, female (GDZ69-VC N35.92, Working, Medical), Overactive bladder (EON11-HG N32.81, Working, Medical). Post-Op Dx: Same. Anesthesia [...] urine. The Urethra was dilated to: 30 Kazakh w/ sounds. Devices Implanted: None. Removal: Cystoscope is removed, The patient tolerated it well. Postoperative Information Discharge: Patient is discharged home with antibiotic coverage, Follow up arranged, F/U with Georgette Marin PA-C within the next 2-3 months. Monitor the urinary flow pattern. The goal is also to decrease UTI frequency. . [facility] Comment on above: Result Comment: Elec tronically Signed By: Cayden GALLO MD\.br\Date and Time Signed: 07/23/23 14:30 EDT Outpatient Surgery Discharge Instructionon 07-23-2023 Outpatient Surgery Discharge Instruction [address] [address] Patient Discharge Instructions PERSON INFORMATION Name: AARON [...] Follow up: With: Address: When: BRENDA MARIN [address] [place] [phone] [facility] (1) Comments: Call for followup appointment [...] serve you. Thank you for choosing [facility] C Urineon 07-11-2023 Bacteria identified Cx [...] Locations R1: This test was performed at: [facility], [address] [place] [address], [address]- , [place], [facility] Comment on above: Performed By: #### 2 [id number] ####[facility] [address] [place] [address] Ambulatory Visit Summaryon 0 07-09-2023 Ambulatory Visit [...] Appointments Sunday 9:00 AM EST Where: [facility] Sunday 2:30 PM EDT Where: [facility] Medications What How [...] for choosing us for your care. [facility] C Urineon 06-07-2023 Bacteria identified Cx [...] Locations R1: This test was performed at: [facility], [address] [place] [address], [facility]- , , [facility] Comment on above: Performed By: #### 2 [id number] ####[address] [place] [address] Screenson 06-06-2023 Screens [id number]#1.00TIFF [facility] Ambulatory Visit Summaryon 0 06-05-2023 [...] CEZAR BERNAL, Cayden Hollins, CASSIE When: Where: [address] [place] [address] [place] [address] Medications What How Much When Instructions Unchanged [...] The main (more content not included)... [facility] Patient Educationon 06-05-19 Patient Education Urology [...] Follow these instructions at home: ? Take zgon-aez-jgcaikl and prescription medicines only as told by [...] provider. Document Revised: 03/07/2022 Document Reviewed: 03/07/2022 [employer] Patient Education ? 2022 [employer]. 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 Getting up 3-4x/night, every night. Denies current pain/burning and visible blood in urine. States she has had 2 UTI's since April. Was hospitalized back in March @ [facility] due to falling. (No C&S at [facility]) Also at [place]. C&S 03/24/23 *>100k E Coli & 50-60k [...] available) Was hospitalized back in March @ [facility] due to falling. (No C&S at [facility]) Also at [place]. UA today shows trace-intact blood, positive nitrates [...] evening fluids and reducing bladder irritants. Ordered: [id number] Measure Post Void residual urine and/or bladder [...] Urnls Dip Stick Auto w/o Microscopy POC 01318 Follow-up With When Contact Information CEZAR BERNAL, Cayden Hollins, URL [address] [address]- Additional Instructions: Schedule cysto/UD Patient Education Urethral [...] 2 tab (more content not included)... [facility] Comment on above: Result Comment: Elec [...] 47 mL/min/1.73 m2 Low >=59mL/min /1.73 m2 [facility] Chem S Comment on above: Interpretive Data: [...] Triglyceride [Mass/Vol] 106 mg/dL Normal <=149mg/dL [facility] Remisol Urea nitrogen [Mass/Vol] 29 mg/dL High [...] Sensitivity Troponin I Instructions For Use, [place], December 2017) TSH Qn 0.52 m[IU]/L Normal 0.34 - 5.60 mcIU/mL FT Remisol Urea nitrogen [Mass/Vol] 39 mg/dL High 5 - 21 mg/dL FT Remisol Urea nitrogen/Creatinine [Mass ratio] 22 mg/mg High 10 - 20 FT Remisol CHEMISTRYOrdered By: Shauna kendall on 04-12-2023 HbA1c (Bld) [Mass fraction] 5.9 % Normal <=5.9% [facility] ChemAutoSS CHEMISTRYOrdered By: Crystal ROP User on 04-12-2023 Glucose [Mass/Vol] 88 mg/dL Normal 55 - 99 mg/dL [facility] POC Subsection Comment on above: Result Comment: Jose matos RN/ POC Username [place] Invalid Interpretation Code [facility] POC Subsection Sodium [Moles/Vol] [id number] mmol/L Invalid Interpretation Code [facility] POC Subsection Sodium [Moles/Vol] [id number] mmol/L Invalid Interpretation Code [facility] POC Subsection COAGULATIONOrdered By: Myra Grayson on 04-12-2023 aPTT Coag (PPP) [Time] 29.5 s Normal 25.1 - 36.5 second(s) [facility] Auto Coag Comment on above: Interpretive Data: [...] the same coagulation reagent and instrumentation as [facility]. Currently there are no coagulation studies available worldwide for children to 14 days, and no normal ranges. Heparin therapeutic range (represented by Anti-Factor Xa activity of 0.2 - 0.4 U/mL) corresponds to PTT of 56.6 - 109.0 sec. INR Coag (PPP) [Relative time] 0.9 {INR} Invalid Interpretation Code [facility] Auto Coag Comment on above: Interpretive Data: I NR results are specifically intended to assess patients stabilized on long-term Anticoagulation therapy suggested INR s Less Intensive Anticoagulation 2.0 3.0 Conventional Range 3.0 4.5 PT Coag (PPP) [Time] 10.4 s Normal 9.4 - 1 2.5 second(s) [facility] Auto Coag Comment on above: Interpretive Data: [...] the same coagulation reagent and instrumentation as [facility]. Currently there are no coagulation studies available worldwide for children to 14 days, and no normal ranges. HEMATOLOGYOrdered By: SYSTEM SYSTEM on 04-12-2023 Basophils/100 WBC (Bld) 0.4 % Normal 0.0 - 2.0 % [facility] HemeAutoSS Basophils/Leukocytes Auto (Bld) [Pure # fraction] [...] 11.0 E9/L [facility] HemeAutoSS URINALYSISOrdered By: Bonny Wrokman on 04-12-2023 Bacteria LM Ql (Urine sed) [...] Interpretation Code Negative [facility] UA Auto SS [place].plasma/[place]. RBC (Bld) [Mass ratio] 0-3 /HPF Normal [...] Spec Desc Catheter (04/12/23 2:32 PM) Normal [facility] UA Auto SS Urobilinogen Qn (U) 0.0218230 {Nevaeh'U}/dL Normal 0.0 - 1.0 EU/dL [facility] UA Auto SS WBC Auto Ql (U) Negative (04/12/23 2:32 PM) Normal Negative [facility] UA Auto SS WBC casts LM.LPF (Urine sed) [#/Area] 0-3 (04/12/23 2:32 PM) Normal [facility] UA Auto SS WBC LM.HPF (Urine sed) [#/Area] 0-5 /HPF Normal 0-5/HPF [facility] UA Auto SS XR CSPINE OBL FLEX_EXTon [...] TEJEDA Date: 2022-09-02 00:37 Normal [facility] MRI SHOULDER RT WO CONon MRI [...] MILLER Date: 2022-08-22 09:25 Normal [facility] XR SHOULDER RT 2V or >on [...] MALDONADO Date: 2022-08-10 22:45 Normal [facility] CT CHEST WO CONon 06-12-2022 CT [...] EHSAN MILLER Date: 2022-06-12 16:56 Normal [facility] VIT D 1 25 DIHYDROXYon 04-24 Calcitriol(1,25 di-OH Vit D) 91.0 pg/mL Critically high 24.8-81.5 [facility] Comment on above: Performed By: #### V [id number] #### [facility] [address] [place] [address] Dr. Helio Cee CULTURE URINEon 04-23-2022 CULTURE [...] Trimethoprim/Sulfamethoxa zole <=20 S F Normal [facility] Comment on above: Performed By: #### U RCX #### [facility] [address] [place] [address] Dr. Helio Cee CBC AUTO DIFFon 04-21-2022 BASO # 0.0 103/ul Normal 0.0-0.1 [facility] Comment on above: Performed By: #### E RUR #### [facility] [address] [address] [address] Helio Cee Basophils/100 WBC (Bld) 0.4 % Normal 0.2-2.0 [facility] Comment on above: Performed By: #### E RUR #### [facility] [address] [place] [address] Dr. Helio Cee EO # 0.4 103/ul Normal 0.0-0.7 [facility] Comment on above: Performed By: #### E RUR #### [facility] [address] [place] [address] Dr. Helio Cee Eosinophils/100 WBC (Bld) 4.0 % Normal 0.9-7.0 [facility] Comment on above: Performed By: #### E RUR #### [facility] [address] [place] [address] Dr. Helio Cee Erythrocyte distribution width (RBC) [Ratio] 15.2 % Critically high 11.0-15.0 [facility] Comment on above: Performed By: #### E RUR #### [facility] [address] [place] [address] Dr. Helio Cee Hematocrit (Bld) [Volume fraction] 41.0 % Normal 36.0-48.0 [facility] Comment on above: Performed By: #### E RUR #### [facility] [address] [place] [address] Dr. Helio Cee Hemoglobin (Bld) [Mass/Vol] 12.9 g/dL Normal 12.0-16.0 [facility] Comment on above: Performed By: #### E RUR #### [facility] [address] [place] [address] Dr. Helio Cee IG # 0.04 10e3/ul Critically high 0.00-0.03 [facility] Comment on above: Performed By: #### E RUR #### [facility] [address] [place] [address] Dr. Helio Cee IG % 0.4 % Normal 0.0-0.5 [facility] Comment on above: Performed By: #### E RUR #### [facility] [address] [address] [address] Helio Cee LYMPH # 1.1 103/ul Critically low 1.2-3.8 [facility] Comment on above: Performed By: #### E RUR #### [facility] [address] [address] [address] Helio Cee Lymphocytes/100 WBC (Bld) 11.9 % Critically low 20.5-60.0 [facility] Comment on above: Performed By: #### E RUR #### [facility] [address] [address] [address] Helio Cee MANUAL DIFF REQ NO Normal [facility] Comment on above: Performed By: #### E RUR #### [facility] [address] [place] [address] Dr. Helio Cee MCH (RBC) [Entitic mass] 29.0 pg Normal 26.7-34.0 [facility] Comment on above: Performed By: #### E RUR #### [facility] [address] [place] [address] Dr. Helio Cee MCHC (RBC) [Mass/Vol] 31.5 g/dL Normal 29.9-35.2 [facility] Comment on above: Performed By: #### E RUR #### [facility] [address] [place] [address] Dr. Helio Cee MCV (RBC) [Entitic vol] 92.1 fL Normal 81.0-99.0 [facility] Comment on above: Performed By: #### E RUR #### [facility] [address] [address] [address] Helio Cee MONO # 0.4 103/ul Normal 0.3-0.8 [facility] Comment on above: Performed By: #### E RUR #### [facility] [address] [address] [address] Helio Cee Monocytes/100 WBC (Bld) 4.4 % Normal 1.7-12.0 [facility] Comment on above: Performed By: #### E RUR #### [facility] [address] [address] [address] Helio Cee NEUT # 7.3 103/ul Critically high 1.4-6.5 [facility] Comment on above: Performed By: #### E RUR #### [facility] [address] [address] [address] Helio Cee Neutrophils/100 WBC (Bld) 78.9 % Critically high 43.0-75.0 [facility] Comment on above: Performed By: #### E RUR #### [facility] [address] [address] [address] Helio Cee Platelet mean volume (Bld) [Entitic vol] 10.6 fL Normal 9.5-13.5 [facility] Comment on above: Performed By: #### E RUR #### [facility] [address] [address] [address] Helio Cee PLT 269 103/ul Normal 150-450 [facility] Comment on above: Performed By: #### E RUR #### [facility] [address] [address] [address] Helio Cee RBC 4.45 106/ul Normal 4.20-5.40 [facility] Comment on above: Performed By: #### E RUR #### [facility] [address] [address] [address] Helio Cee WBC 9.2 103/ul Normal 4.0-11.0 [facility] Comment on above: Performed By: #### E RUR #### [facility] [address] [address] [address] Helio Cee LIPID PROFILEon 04-21-2022 CHOL-HDL RATIO NORM SEE BELOW Normal [facility] Comment on above: Result Comment: 3.3 - 4.4 LOW RISK 4.4 - 7.1 AVERAGE RISK 7.1 - 11.0 MODERATE RISK >11.0 HIGH RISK Performed By: #### T SH, LIPID, CMP ####[facility] [address] [address]Dr. Helio Cee Cholesterol [Mass/Vol] 146 mg/dL Normal <=200 Th [facility] Comment on above: Performed By: #### T CAITLIN, LIPID, CMP ####[facility] [address] [address]Dr. Helio Cee Cholesterol in HDL [Mass/Vol] 63 mg/dL Critically high 40-60 [facility] Comment on above: Performed By: #### T SH, LIPID, CMP ####[facility] [address] [address]. Claudettemagan Cee Cholesterol in LDL [Mass/Vol] 66.6 mg/dL Normal [facility] Comment on above: Performed By: #### T CAITLIN, LIPID, CMP ####[facility] [address] [address]Dr. Helio Cee Cholesterol.total/Lisa sterol in HDL [Mass ratio] 2.3 {ratio} Normal [facility] Comment on above: Performed By: #### T CAITLIN, LIPID, CMP ####[facility] [address] [address]Dr. Helio Cee HDL NORMAL > or = 60 mg/dl - LO W CARDIOVASCULAR RISK <40 mg/dl - HIGH CARDIOVASCULAR RISK Normal [facility] Comment on above: Performed By: #### T CAITLIN, LIPID, CMP ####[facility] [address] [address]Dr. Helio Cee LDL CALC NORMAL SEE BELOW Normal [facility] Comment on above: Result Comment: <100 mg/dl OPTIMAL 100 - 129 mg/dl NEAR OR ABOVE OPTIMAL 130 - 159 mg/dl BORDERLINE HIGH 160 - 189 mg/dl HIGH >190 mg/dl VERY HIGH Performed By: #### T SH, LIPID, CMP ####[facility] [address] [address]Dr. Helio Cee Triglyceride [Mass/Vol] 82 mg/dL Normal <=150 [facility] Comment on above: Performed By: #### T SH, LIPID, CMP ####[facility] [address] [place], [place] [address]Dr. Helio Cee VLDL CALC 16.4 mg/dL Normal [facility] Comment on above: Performed By: #### T CAITLIN LIPID, CMP ####[facility] [address] [address]Dr. Helio Cee PROF 14(COMP METB)on 022 Albumin [Mass/Vol] 3.5 g/dL Normal 3.4-5.0 [facility] Comment on above: Performed By: #### T CAITLIN LIPID, CMP ####[facility] [address] [address]Dr. Claudettemagan Cee Albumin/Globulin [Mass ratio] 1.0 {ratio} Normal [facility] Comment on above: Performed By: #### T CAITLIN LIPID, CMP ####[facility] [address] [address]Dr. Claudettemagan Cee ALP [Catalytic activity/Vol] 98 U/L Normal 46-116 [facility] Comment on above: Performed By: #### T CAITLIN LIPID, CMP ####[facility] [address] [address]Dr. Caludettemagan Cee ALT [Catalytic activity/Vol] 23 U/L Normal 14-59 [facility] Comment on above: Performed By: #### T CAITLIN LIPID, CMP ####[facility] [address] [address]Dr. Claudettemagan Cee Anion gap [Moles/Vol] 12.2 mmol/L Normal [facility] Comment on above: Performed By: #### T CAITLIN LIPID, CMP ####[facility] [address] [address]Dr. Claudettemagan Cee AST [Catalytic activity/Vol] 15 U/L Normal 15-37 [facility] Comment on above: Performed By: #### T CAITLIN LIPID, CMP ####[facility] [address] [address]Dr. Helio Cee Bilirubin [Mass/Vol] 0.5 mg/dL Normal 0.2-1.0 [facility] Comment on above: Performed By: #### T SH, LIPID, CMP ####[facility] [address] [address]Dr. Helio Cee Calcium [Mass/Vol] 9.0 mg/dL Normal 8.5-10.1 [facility] Comment on above: Performed By: #### T SH, LIPID, CMP ####[facility] [address] [address]Dr. Helio Cee Chloride [Moles/Vol] 109 mmol/L Critically high 98-107 [facility] Comment on above: Performed By: #### T SH, LIPID, CMP ####[facility] [address] [address]Dr. Helio Cee CO2 [Moles/Vol] 26.5 mmol/L Normal 21.0-32.0 [facility] Comment on above: Performed By: #### T SH, LIPID, CMP ####[facility] [address] [place], [place] [address]Dr. Helio Cee Creatinine [Mass/Vol] 1.22 mg/dL Critically high 0.55-1.02 [facility] Comment on above: Performed By: #### T SH, LIPID, CMP ####[facility] [address] [place], [place] [address]Dr. Helio Cee EGFR-AF TRINIDADIAN 52 mL/min/1.73m2 Critically low >=60 [facility] Comment on above: Performed By: #### T SH, LIPID, CMP ####[facility] [address] [place], [place] [address]Dr. Helio Cee EGFR-NON AF TRINIDADIAN 43 mL/min/1.73m2 Critically low >=60 [facility] Comment on above: Performed By: #### T SH, LIPID, CMP ####[facility] [address] [place], [place] [address]Dr. Helio Cee Globulin (S) [Mass/Vol] 3.4 g/dL Normal [facility] Comment on above: Performed By: #### T SH, LIPID, CMP ####[facility] [address] [place], [place] [address]Dr. Helio Cee Glucose [Mass/Vol] 103 mg/dL Normal 74-106 [facility] Comment on above: Performed By: #### T CAITLIN, LIPID, CMP ####[facility] [address] [address]Dr. Helio Cee Potassium [Moles/Vol] 4.7 mmol/L Normal 3.5-5.1 [facility] Comment on above: Performed By: #### T CAITLIN, LIPID, CMP ####[facility] [address] [address]Dr. Helio Cee Protein [Mass/Vol] 6.9 g/dL Normal 6.4-8.2 [facility] Comment on above: Performed By: #### T CAITLIN LIPID, CMP ####[facility] [address] [place], [place] [address]Dr. Helio Cee Sodium [Moles/Vol] 143 mmol/L Normal 136-145 [facility] Comment on above: Performed By: #### T CAITLIN, LIPID, CMP ####[facility] [address] [place] [address]Dr. Helio Cee Urea nitrogen [Mass/Vol] 22.0 mg/dL Critically high 7.0-18.0 [facility] Comment on above: Performed By: #### T CAITLIN LIPID, CMP ####[facility] [address] [place], [place] [address]Dr. Helio Cee Urea nitrogen/Creatinine [Mass ratio] 18.0 mg/mg Normal [facility] Comment on above: Performed By: #### T CAITLIN, LIPID, CMP ####[facility] [address] [place] [address]Dr. Helio Cee TSHon 04-21-2022 TSH 0.592 uIU/mL Normal 0.358-3.74 0 [facility] Comment on above: Performed By: #### T CAITLIN, LIPID, CMP ####[facility] [address] [place] [address]Dr. Helio Cee UA RANDOM W/MICROSCOPICon BACTERIA NONE SEEN Normal NONE SEEN [facility] Comment on above: Performed By: #### U AMIC ####[facility] [address] [place] [address]Dr. Claudettemagan Cee Bilirubin Ql (U) Negative Normal NEGATIVE [facility] Comment on above: Performed By: #### U AMIC ####[facility] [address] [place] [address]Dr. Claudettemagan Cee CAST NONE SEEN Normal NONE SEEN [facility] Comment on above: Performed By: #### U AMIC ####[facility] [address] [place] [address]Dr. Helio Cee Clarity (U) CLEAR Normal CLEAR [facility] Comment on above: Performed By: #### U AMIC ####[facility] [address] [place], [place] [address]Dr. Helio Cee Color (U) DK. YELLOW Normal YELLOW [facility] Comment on above: Performed By: #### U AMIC ####[facility] [address] [place], [place] [address]Dr. Helio Cee Crystals LM Nom (Urine sed) NONE SEEN Normal NONE SEEN [facility] Comment on above: Performed By: #### U AMIC ####[facility] [address] [place], [place] [address]Dr. Claudettemagan Coleman Epithelial cells LM Ql (Urine sed) RARE Normal NONE SEEN /RARE [facility] Comment on above: Performed By: #### U AMIC ####[facility] [address] [place], [place] [address]Dr. Helio Cee Glucose Ql (U) Negative Normal NEGATIVE [facility] Comment on above: Performed By: #### U AMIC ####[facility] [address] [place] [address]Dr. Helio Cee Hemoglobin Ql (U) Negative Normal NEGATIVE [facility] Comment on above: Performed By: #### U AMIC ####[facility] X[address] [place], [place] [address]Dr. Helio Cee Ketones Ql (U) Negative Normal NEGATIVE [facility] Comment on above: Performed By: #### U AMIC ####[facility] [address] [place] [address]Dr. Helio Cee LEUKOCYTES Negative Normal NEGATIVE [facility] Comment on above: Performed By: #### U AMIC ####[facility] [address] [place] [address]Dr. Helio Cee MUCOUS TRACE Abnormal NONE SEEN [facility] Comment on above: Performed By: #### U AMIC ####[facility] [address] [place] [address]Dr. Helio Cee Nitrite Ql (U) Negative Normal NEGATIVE [facility] Comment on above: Performed By: #### U AMIC ####[facility] [address] [place] [address]Dr. Helio Cee pH (U) 5.5 [pH] Normal 5-9 [facility] Comment on above: Performed By: #### U AMIC ####[facility] [address] [place], [place] [address]Dr. Helio Coleman RBC 0-2 Normal 0-2 [facility] Comment on above: Performed By: #### U AMIC ####[facility] [address] [place] [address]Dr. Helio Cee SPEC GRAVITY >=1.030 Abnormal 1.005-<=1. 025 [facility] Comment on above: Performed By: #### U AMIC ####[facility] [address] [place] [address]Dr. Helio Cee UA PROTEIN TRACE Normal NEGATIVE/ TRACE [facility] Comment on above: Performed By: #### U AMIC ####[facility] [address] [place] [address]Dr. Claudettemagan Cee Urobilinogen Qn (U) 1.0 {Nevaeh'U}/dL Normal 0.2 - 1. 0 [facility] Comment on above: Performed By: #### U AMIC ####[facility] [address] [place] [address]Dr. Claudettemagan Cee WBC NONE SEEN Normal NONE SEEN [facility] Comment on above: Performed By: #### U AMIC ####[facility] [address] [place], [place] [address]SfDr. Heloi Cee CT CHEST WO CONon 02-22-2022 CT [...] EHSAN MILLER Date: 2022-02-22 16:51 Normal [facility] HEMOGLOBINon 02-22-2022 Hemoglobin (Bld) [Mass/Vol] 13.6 g/dL Normal 12.0-16.0 [facility] Comment on above: Performed By: #### V [id number] #### [facility] [address] [place], [place] [address] Dr. Helio Cee XR TIB_FIB RT 2Von [...] LONG Date: 2022-01-07 21:52 Normal [facility] BNPon 11-22-2021 Natriuretic peptide B (Bld) [Mass/Vol] 1469.0 pg/mL Critically high <=900.0 [facility] Comment on above: Performed By: #### C VDTB #### [facility] [address] [place] [address] Dr. Helio Cee CBC AUTO DIFFon 11-22-2021 BASO # 0.1 103/ul Normal 0.0-0.1 [facility] Comment on above: Performed By: #### E RUR #### [facility] [address] [place] [address] Dr. Helio Cee Basophils/100 WBC (Bld) 0.7 % Normal 0.2-2.0 [facility] Comment on above: Performed By: #### E RUR #### [facility] [address] [place] [address] Dr. Helio Cee EO # 0.2 103/ul Normal 0.0-0.7 [facility] Comment on above: Performed By: #### E RUR #### [facility] [address] [place] [address] Dr. Helio Cee Eosinophils/100 WBC (Bld) 1.9 % Normal 0.9-7.0 [facility] Comment on above: Performed By: #### E RUR #### [facility] [address] [place] [address] Dr. Helio Cee Erythrocyte distribution width (RBC) [Ratio] 14.3 % Normal 11.0-15.0 [facility] Comment on above: Performed By: #### E RUR #### [facility] [address] [place] [address] Dr. Helio Cee Hematocrit (Bld) [Volume fraction] 37.9 % Normal 36.0-48.0 [facility] Comment on above: Performed By: #### E RUR #### [facility] [address] [place] [address] Dr. Helio Cee Hemoglobin (Bld) [Mass/Vol] 12.0 g/dL Normal 12.0-16.0 [facility] Comment on above: Performed By: #### E RUR #### [facility] [address] [place] [address] [address] Helio Cee IG # 0.10 10e3/ul Critically high 0.00-0.03 [facility] Comment on above: Performed By: #### E RUR #### [facility] [address] [place] [address] Dr. Helio Cee IG % 1.1 % Critically high 0.0-0.5 [facility] Comment on above: Performed By: #### E RUR #### [facility] [address] [place] [address] Dr. Helio Cee LYMPH # 0.9 103/ul Critically low 1.2-3.8 [facility] Comment on above: Performed By: #### E RUR #### [facility] [address] [place] [address] Dr. Helio Cee Lymphocytes/100 WBC (Bld) 10.1 % Critically low 20.5-60.0 [facility] Comment on above: Performed By: #### E RUR #### [facility] [address] [place] [address] Dr. Helio Cee MANUAL DIFF REQ NO Normal [facility] Comment on above: Performed By: #### E RUR #### [facility] [address] [place] [address] Dr. Helio Cee MCH (RBC) [Entitic mass] 29.8 pg Normal 26.7-34.0 [facility] Comment on above: Performed By: #### E RUR #### [facility] [address] [place] [address] Dr. Helio Cee MCHC (RBC) [Mass/Vol] 31.7 g/dL Normal 29.9-35.2 [facility] Comment on above: Performed By: #### E RUR #### [facility] [address] [place] [address] Dr. Helio Cee MCV (RBC) [Entitic vol] 94.0 fL Normal 81.0-99.0 [facility] Comment on above: Performed By: #### E RUR #### [facility] [address] [place] [address] Dr. Helio Cee MONO # 0.7 103/ul Normal 0.3-0.8 [facility] Comment on above: Performed By: #### E RUR #### [facility] [address] [place] [address] Dr. Helio Cee Monocytes/100 WBC (Bld) 7.8 % Normal 1.7-12.0 [facility] Comment on above: Performed By: #### E RUR #### [facility] [address] [place] [address] Dr. Helio Cee NEUT # 7.2 103/ul Critically high 1.4-6.5 [facility] Comment on above: Performed By: #### E RUR #### [facility] [address] [place] [address] Dr. Helio Cee Neutrophils/100 WBC (Bld) 78.4 % Critically high 43.0-75.0 [facility] Comment on above: Performed By: #### E RUR #### [facility] [address] [place] [address] Dr. Helio Cee Platelet mean volume (Bld) [Entitic vol] 10.6 fL Normal 9.5-13.5 [facility] Comment on above: Performed By: #### E RUR #### [facility] [address] [place] [address] Dr. Helio Cee PLT 278 103/ul Normal 150-450 [facility] Comment on above: Performed By: #### E RUR #### [facility] [address] [place] [address] Dr. Helio Cee RBC 4.03 106/ul Critically low 4.20-5.40 [facility] Comment on above: Performed By: #### E RUR #### [facility] [address] [place] [address] Dr. Helio Cee WBC 9.1 103/ul Normal 4.0-11.0 [facility] Comment on above: Performed By: #### E RUR #### [facility] [address] [place] [address] [address] Heilo Cee CTA CHEST WO W CONon 022 [...] Jay BARAHONA Date: 2021-11-22 16:47 Normal [facility] CULTURE BLOODon 11-22-2021 Microscopic examination of blood, culture Culture Observations: NO GROWTH AT 5 DAYS. Normal [facility] Comment on above: Performed By: #### B [id number] ####[facility] [address] [place] [address]Dr. Helio Cee Microscopic examination of blood, culture Culture Observations: NO GROWTH AT 5 DAYS. Normal [facility] Comment on above: Performed By: #### B [id number] #### [facility] [address] [place] [address] [address] Helio Cee Covid-19 PCR (CVDTB)on 11-11 SARS-CoV-2 (COVID-19) RNA KIMMY+probe Ql (Unsp spec) Not detected Normal NOT DETECTED [facility] Comment on above: Result [...] for this test is supported by the Health Researcher of Health and Human Service's declaration that [...] used). Performed By: #### C [id number] #### [facility] [address] [place] [address] [address] Helio Cee LACTATE/LACTIC ACIDon 2021 Lactate [Moles/Vol] mmol/L Critically low 0.4-1.9 [facility] Comment on above: Performed By: #### L ACT ####[facility] [address] [place] [address]Dr. Helio Cee PROF 14(COMP METB)on 022 Albumin [Mass/Vol] 3.1 g/dL Critically low 3.4-5.0 [facility] Comment on above: Performed By: #### V [id number] #### [facility] [address] [place] [address] Dr. Helio Cee Albumin/Globulin [Mass ratio] 0.8 {ratio} Normal [facility] Comment on above: Performed By: #### V [id number] #### [facility] [address] [place] [address] Dr. Helio Cee ALP [Catalytic activity/Vol] 92 U/L Normal 46-116 [facility] Comment on above: Performed By: #### V [id number] #### [facility] [address] [place] [address] Dr. Helio Cee ALT [Catalytic activity/Vol] 23 U/L Normal 14-59 [facility] Comment on above: Performed By: #### V [id number] #### [facility] [address] [place] [address] Dr. Helio Cee Anion gap [Moles/Vol] 12.8 mmol/L Normal [facility] Comment on above: Performed By: #### V [id number] #### [facility] [address] [place] [address] Dr. Helio Cee AST [Catalytic activity/Vol] 16 U/L Normal 15-37 [facility] Comment on above: Performed By: #### V [id number] #### [facility] [address] [place] [address] Dr. Helio Cee Bilirubin [Mass/Vol] 0.6 mg/dL Normal 0.2-1.0 [facility] Comment on above: Performed By: #### V [id number] #### [facility] [address] [place] [address] Dr. Helio Cee Calcium [Mass/Vol] 9.5 mg/dL Normal 8.5-10.1 [facility] Comment on above: Performed By: #### V [id number] #### [facility] [address] [place] [address] Dr. Helio Cee Chloride [Moles/Vol] 106 mmol/L Normal 98-107 [facility] Comment on above: Performed By: #### V [id number] #### [facility] [address] [place] [address] [address] Helio Cee CO2 [Moles/Vol] 25.1 mmol/L Normal 21.0-32.0 [facility] Comment on above: Performed By: #### V [id number] #### [facility] [address] [place] [address] [address] Helio Cee Creatinine [Mass/Vol] 1.06 mg/dL Critically high 0.55-1.02 [facility] Comment on above: Performed By: #### V [id number] #### [facility] [address] [place] [address] Dr. Helio Cee EGFR-AF TRINIDADIAN >60 Normal >=60 [facility] Comment on above: Performed By: #### V [id number] #### [facility] [address] [place] [address] [address] Helio Cee EGFR-NON AF TRINIDADIAN 51 mL/min/1.73m2 Critically low >=60 [facility] Comment on above: Performed By: #### V [id number] #### [facility] [address] [place] [address] Dr. Helio Cee Globulin (S) [Mass/Vol] 4.1 g/dL Normal T [facility] Comment on above: Performed By: #### V [id number] #### [facility] [address] [place] [address] [address] Helio Cee Glucose [Mass/Vol] 99 mg/dL Normal 74-106 [facility] Comment on above: Performed By: #### V [id number] #### [facility] [address] [place] [address] [address] Helio Cee Potassium [Moles/Vol] 3.9 mmol/L Normal 3.5-5.1 [facility] Comment on above: Performed By: #### V [id number] #### [facility] [address] [place] [address] Dr. Helio Cee Protein [Mass/Vol] 7.2 g/dL Normal 6.4-8.2 [facility] Comment on above: Performed By: #### V [id number] #### [facility] [address] [place] [address] [address] Helio Cee Sodium [Moles/Vol] 140 mmol/L Normal 136-145 [facility] Comment on above: Performed By: #### V [id number] #### [facility] [address] [place] [address] [address] Helio Cee Urea nitrogen [Mass/Vol] 15.0 mg/dL Normal 7.0-18.0 [facility] Comment on above: Performed By: #### V [id number] #### [facility] [address] [place] [address] [address] Helio Cee Urea nitrogen/Creatinine [Mass ratio] 14.2 mg/mg Normal [facility] Comment on above: Performed By: #### V [id number] #### [facility] [address] [place] [address] [address] Helio Cee TROPONIN, HIGH SENSITIVITYon 11-22-2021 HSTROP 11.6 pg/mL Normal 4.0-51.3 [facility] Comment on above: Result Comment: CUT- OFF POINTS HAVE BEEN ESTABLISHED BASED ON THE FOURTH UNIVERSAL DEFINITIONS OF MYOCARDIAL INFARCTION. THE UPPER REFERENCE LIMIT (URL) OF TROPONIN, DEFINED THE 99TH PERCENTILE OF cTnI DISTRIBUTION IN A REFERENCE POPULATION, HAS BEEN CONFIRMED THE DECISION THRESHOLD FOR NC DIAGNOSIS. Performed By: #### V [id number] #### [facility] [address] [place] [address] Dr. Helio Cee XR CHEST 2 Von [...] CONNOR Date: 2021-11-22 14:20 Normal [facility] BNPon 11-21-2021 Natriuretic peptide B (Bld) [Mass/Vol] 953.0 pg/mL Critically high <=900.0 [facility] Comment on above: Performed By: #### E RUR #### [facility] [address] [place] [address] Dr. Helio Cee CBC AUTO DIFFon 11-21-2021 BASO # 0.0 103/ul Normal 0.0-0.1 [facility] Comment on above: Performed By: #### E RUR #### [facility] [address] [place] [address] Dr. Helio Cee Basophils/100 WBC (Bld) 0.4 % Normal 0.2-2.0 [facility] Comment on above: Performed By: #### E RUR #### [facility] [address] [place] [address] Dr. Helio Cee EO # 0.1 103/ul Normal 0.0-0.7 [facility] Comment on above: Performed By: #### E RUR #### [facility] [address] [place] [address] Dr. Helio Cee Eosinophils/100 WBC (Bld) 1.1 % Normal 0.9-7.0 [facility] Comment on above: Performed By: #### E RUR #### [facility] [address] [place] [address] Dr. Helio Cee Erythrocyte distribution width (RBC) [Ratio] 14.6 % Normal 11.0-15.0 [facility] Comment on above: Performed By: #### E RUR #### [facility] [address] [place] [address] Dr. Helio Cee Hematocrit (Bld) [Volume fraction] 35.2 % Critically low 36.0-48.0 [facility] Comment on above: Performed By: #### E RUR #### [facility] [address] [place] [address] Dr. Helio Cee Hemoglobin (Bld) [Mass/Vol] 10.9 g/dL Critically low 12.0-16.0 [facility] Comment on above: Performed By: #### E RUR #### [facility] [address] [place] [address] [address] Helio Cee IG # 0.07 10e3/ul Critically high 0.00-0.03 [facility] Comment on above: Performed By: #### E RUR #### [facility] [address] [place] [address] Dr. Helio Cee IG % 0.7 % Critically high 0.0-0.5 [facility] Comment on above: Performed By: #### E RUR #### [facility] [address] [place] [address] Dr. Helio Cee LYMPH # 1.4 103/ul Normal 1.2-3.8 [facility] Comment on above: Performed By: #### E RUR #### [facility] [address] [place] [address] Dr. Helio Cee Lymphocytes/100 WBC (Bld) 13.3 % Critically low 20.5-60.0 [facility] Comment on above: Performed By: #### E RUR #### [facility] [address] [place] [address] Dr. Helio Cee MANUAL DIFF REQ NO Normal [facility] Comment on above: Performed By: #### E RUR #### [facility] [address] [place] [address] Dr. Helio Cee MCH (RBC) [Entitic mass] 29.5 pg Normal 26.7-34.0 [facility] Comment on above: Performed By: #### E RUR #### [facility] [address] [place] [address] Dr. Helio Cee MCHC (RBC) [Mass/Vol] 31.0 g/dL Normal 29.9-35.2 [facility] Comment on above: Performed By: #### E RUR #### [facility] [address] [place] [address] Dr. Helio Cee MCV (RBC) [Entitic vol] 95.4 fL Normal 81.0-99.0 [facility] Comment on above: Performed By: #### E RUR #### [facility] [address] [place] [address] Dr. Helio Cee MONO # 0.8 103/ul Normal 0.3-0.8 [facility] Comment on above: Performed By: #### E RUR #### [facility] [address] [place] [address] Dr. Helio Cee Monocytes/100 WBC (Bld) 7.3 % Normal 1.7-12.0 [facility] Comment on above: Performed By: #### E RUR #### [facility] [address] [place] [address] Dr. Helio Cee NEUT # 7.9 103/ul Critically high 1.4-6.5 [facility] Comment on above: Performed By: #### E RUR #### [facility] [address] [place] [address] Dr. Helio Cee Neutrophils/100 WBC (Bld) 77.2 % Critically high 43.0-75.0 [facility] Comment on above: Performed By: #### E RUR #### [facility] [address] [place] [address] Dr. Helio Cee Platelet mean volume (Bld) [Entitic vol] 11.1 fL Normal 9.5-13.5 [facility] Comment on above: Performed By: #### E RUR #### [facility] [address] [place] [address] Dr. Helio Cee PLT 245 103/ul Normal 150-450 [facility] Comment on above: Performed By: #### E RUR #### [facility] [address] [place], [place] [address] Dr. Helio Cee RBC 3.69 106/ul Critically low 4.20-5.40 [facility] Comment on above: Performed By: #### E RUR #### [facility] [address] [place] [address] Dr. Helio Cee WBC 10.2 103/ul Normal 4.0-11.0 [facility] Comment on above: Performed By: #### E RUR #### [facility] [address] [place] [address] [address] Helio Cee PROF 14(COMP METB)on 022 Albumin [Mass/Vol] 2.6 g/dL Critically low 3.4-5.0 [facility] Comment on above: Performed By: #### V [id number] #### [facility] [address] [place] [address] [address] Helio Cee Albumin/Globulin [Mass ratio] 0.7 {ratio} Normal [facility] Comment on above: Performed By: #### V [id number] #### [facility] [address] [place] [address] [address] Helio Cee ALP [Catalytic activity/Vol] 75 U/L Normal 46-116 [facility] Comment on above: Performed By: #### V [id number] #### [facility] [address] [place] [address] Dr. Helio Cee ALT [Catalytic activity/Vol] 19 U/L Normal 14-59 [facility] Comment on above: Performed By: #### V [id number] #### [facility] [address] [place] [address] [address] Helio Cee Anion gap [Moles/Vol] 11.7 mmol/L Normal [facility] Comment on above: Performed By: #### V [id number] #### [facility] [address] [place] [address] [address] Helio Cee AST [Catalytic activity/Vol] 8 U/L Critically low 15-37 [facility] Comment on above: Performed By: #### V [id number] #### [facility] [address] [place] [address] [address] Helio Cee Bilirubin [Mass/Vol] 0.3 mg/dL Normal 0.2-1.0 [facility] Comment on above: Performed By: #### V [id number] #### [facility] [address] [place] [address] Dr. Helio Cee Calcium [Mass/Vol] 9.0 mg/dL Normal 8.5-10.1 [facility] Comment on above: Performed By: #### V [id number] #### [facility] [address] [address] [address] Helio Cee Chloride [Moles/Vol] 107 mmol/L Normal 98-107 [facility] Comment on above: Performed By: #### V [id number] #### [facility] [address] [address] [address] Helio Cee CO2 [Moles/Vol] 24.7 mmol/L Normal 21.0-32.0 [facility] Comment on above: Performed By: #### V [id number] #### [facility] [address] [address] [address] Helio Cee Creatinine [Mass/Vol] 0.91 mg/dL Normal 0.55-1.02 [facility] Comment on above: Performed By: #### V [id number] #### [facility] [address] [address] [address] Helio Cee EGFR-AF TRINIDADIAN >60 Normal >=60 [facility] Comment on above: Performed By: #### V [id number] #### [facility] [address] [address] [address] Helio Cee EGFR-NON AF TRINIDADIAN 60 mL/min/1.73m2 Normal >=60 [facility] Comment on above: Performed By: #### V [id number] #### [facility] [address] [address] [address] Helio Cee Globulin (S) [Mass/Vol] 3.9 g/dL Normal [facility] Comment on above: Performed By: #### V [id number] #### [facility] [address] [address] [address] Helio Cee Glucose [Mass/Vol] 131 mg/dL Critically high 74-106 [facility] Comment on above: Performed By: #### V [id number] #### [facility] [address] [address] [address] Helio Cee Potassium [Moles/Vol] 3.4 mmol/L Critically low 3.5-5.1 [facility] Comment on above: Performed By: #### V [id number] #### [facility] [address] [place] [address] Dr. Helio Cee Protein [Mass/Vol] 6.5 g/dL Normal 6.4-8.2 [facility] Comment on above: Performed By: #### V [id number] #### [facility] [address] [place] [address] Dr. Helio Cee Sodium [Moles/Vol] 140 mmol/L Normal 136-145 [facility] Comment on above: Performed By: #### V [id number] #### [facility] [address] [place] [address] Dr. Helio Cee Urea nitrogen [Mass/Vol] 14.0 mg/dL Normal 7.0-18.0 [facility] Comment on above: Performed By: #### V [id number] #### [facility] [address] [place] [address] Dr. Helio Cee Urea nitrogen/Creatinine [Mass ratio] 15.4 mg/mg Normal [facility] Comment on above: Performed By: #### V [id number] #### [facility] [address] [place] [address] Dr. Helio Cee BNPon 11-20-2021 Natriuretic peptide B (Bld) [Mass/Vol] 781.0 pg/mL Normal <=900.0 [facility] Comment on above: Performed By: #### E RUR #### [facility] [address] [place] [address] Dr. Helio Cee CBC AUTO DIFFon 11-20-2021 BASO # 0.0 103/ul Normal 0.0-0.1 [facility] Comment on above: Performed By: #### V [id number] #### [facility] [address] [place] [address] Dr. Helio Cee Basophils/100 WBC (Bld) 0.3 % Normal 0.2-2.0 [facility] Comment on above: Performed By: #### V [id number] #### [facility] [address] [place] [address] Dr. Helio Cee EO # 0.1 103/ul Normal 0.0-0.7 [facility] Comment on above: Performed By: #### V [id number] #### [facility] [address] [place] [address] Dr. Helio Cee Eosinophils/100 WBC (Bld) 0.5 % Critically low 0.9-7.0 [facility] Comment on above: Performed By: #### V [id number] #### [facility] [address] [place] [address] Dr. Helio Cee Erythrocyte distribution width (RBC) [Ratio] 14.5 % Normal 11.0-15.0 [facility] Comment on above: Performed By: #### V [id number] #### [facility] [address] [place] [address] Dr. Helio Cee Hematocrit (Bld) [Volume fraction] 36.6 % Normal 36.0-48.0 [facility] Comment on above: Performed By: #### V [id number] #### [facility] [address] [place] [address] Dr. Helio Cee Hemoglobin (Bld) [Mass/Vol] 11.5 g/dL Critically low 12.0-16.0 [facility] Comment on above: Performed By: #### V [id number] #### [facility] [address] [place] [address] Dr. Helio Cee IG # 0.07 10e3/ul Critically high 0.00-0.03 [facility] Comment on above: Performed By: #### V [id number] #### [facility] [address] [place] [address] Dr. Helio Cee IG % 0.5 % Normal 0.0-0.5 [facility] Comment on above: Performed By: #### V [id number] #### [facility] [address] [place] [address] Dr. Helio Cee LYMPH # 1.2 103/ul Normal 1.2-3.8 [facility] Comment on above: Performed By: #### V [id number] #### [facility] [address] [place] [address] Dr. Helio Cee Lymphocytes/100 WBC (Bld) 9.5 % Critically low 20.5-60.0 [facility] Comment on above: Performed By: #### V [id number] #### [facility] [address] [place] [address] Dr. Helio Cee MANUAL DIFF REQ NO Normal [facility] Comment on above: Performed By: #### V [id number] #### [facility] [address] [place] [address] Dr. Helio Cee MCH (RBC) [Entitic mass] 30.2 pg Normal 26.7-34.0 [facility] Comment on above: Performed By: #### V [id number] #### [facility] [address] [place] [address] Dr. Helio Cee MCHC (RBC) [Mass/Vol] 31.4 g/dL Normal 29.9-35.2 [facility] Comment on above: Performed By: #### V [id number] #### [facility] [address] [place] [address] Dr. Helio Cee MCV (RBC) [Entitic vol] 96.1 fL Normal 81.0-99.0 [facility] Comment on above: Performed By: #### V [id number] #### [facility] [address] [place] [address] Dr. Helio Cee MONO # 0.7 103/ul Normal 0.3-0.8 [facility] Comment on above: Performed By: #### V [id number] #### [facility] [address] [place] [address] Dr. Helio Cee Monocytes/100 WBC (Bld) 5.7 % Normal 1.7-12.0 [facility] Comment on above: Performed By: #### V [id number] #### [facility] [address] [place] [address] Dr. Helio Cee NEUT # 10.8 103/ul Critically high 1.4-6.5 [facility] Comment on above: Performed By: #### V [id number] #### [facility] [address] [place] [address] Dr. Helio Cee Neutrophils/100 WBC (Bld) 83.5 % Critically high 43.0-75.0 [facility] Comment on above: Performed By: #### V [id number] #### [facility] [address] [place] [address] Dr. Helio Cee Platelet mean volume (Bld) [Entitic vol] 11.1 fL Normal 9.5-13.5 [facility] Comment on above: Performed By: #### V [id number] #### [facility] [address] [place] [address] Dr. Helio Cee PLT 231 103/ul Normal 150-450 [facility] Comment on above: Performed By: #### V [id number] #### [facility] [address] [place] [address] Dr. Helio Cee RBC 3.81 106/ul Critically low 4.20-5.40 [facility] Comment on above: Performed By: #### V [id number] #### [facility] [address] [place] [address] Dr. Helio Cee WBC 13.0 103/ul Critically high 4.0-11.0 [facility] Comment on above: Performed By: #### V [id number] #### [facility] [address] [place] [address] Dr. Helio Cee PROF 14(COMP METB)on 022 Albumin [Mass/Vol] 2.9 g/dL Critically low 3.4-5.0 [facility] Comment on above: Performed By: #### E RUR #### [facility] [address] [place] [address] Dr. Helio Cee Albumin/Globulin [Mass ratio] 0.8 {ratio} Normal [facility] Comment on above: Performed By: #### E RUR #### [facility] [address] [place] [address] Dr. Helio Cee ALP [Catalytic activity/Vol] 81 U/L Normal 46-116 [facility] Comment on above: Performed By: #### E RUR #### [facility] [address] [place] [address] Dr. Helio Cee ALT [Catalytic activity/Vol] 21 U/L Normal 14-59 [facility] Comment on above: Performed By: #### E RUR #### [facility] [address] [place] [address] Dr. Helio Cee Anion gap [Moles/Vol] 12.4 mmol/L Normal Th [facility] Comment on above: Performed By: #### E RUR #### [facility] [address] [place] [address] Dr. Helio Cee AST [Catalytic activity/Vol] 11 U/L Critically low 15-37 [facility] Comment on above: Performed By: #### E RUR #### [facility] [address] [place] [address] Dr. Helio Cee Bilirubin [Mass/Vol] 0.4 mg/dL Normal 0.2-1.0 [facility] Comment on above: Performed By: #### E RUR #### [facility] [address] [place] [address] Dr. Helio Cee Calcium [Mass/Vol] 8.7 mg/dL Normal 8.5-10.1 [facility] Comment on above: Performed By: #### E RUR #### [facility] [address] [place] [address] Dr. Helio Cee Chloride [Moles/Vol] 108 mmol/L Critically high 98-107 [facility] Comment on above: Performed By: #### E RUR #### [facility] [address] [place] [address] Dr. Helio Cee CO2 [Moles/Vol] 24.2 mmol/L Normal 21.0-32.0 [facility] Comment on above: Performed By: #### E RUR #### [facility] [address] [place] [address] Dr. Helio Cee Creatinine [Mass/Vol] 1.03 mg/dL Critically high 0.55-1.02 [facility] Comment on above: Performed By: #### E RUR #### [facility] [address] [place] [address] Dr. Helio Cee EGFR-AF TRINIDADIAN >60 Normal >=60 [facility] Comment on above: Performed By: #### E RUR #### [facility] [address] [address] [address] Helio Cee EGFR-NON AF TRINIDADIAN 52 mL/min/1.73m2 Critically low >=60 [facility] Comment on above: Performed By: #### E RUR #### [facility] [address] [address] [address] Helio Cee Globulin (S) [Mass/Vol] 3.5 g/dL Normal [facility] Comment on above: Performed By: #### E RUR #### [facility] [address] [place] [address] Dr. Helio Cee Glucose [Mass/Vol] 142 mg/dL Critically high 74-106 [facility] Comment on above: Performed By: #### E RUR #### [facility] [address] [place] [address] Dr. Helio Cee Potassium [Moles/Vol] 3.6 mmol/L Normal 3.5-5.1 [facility] Comment on above: Performed By: #### E RUR #### [facility] [address] [place] [address] Dr. Helio Cee Protein [Mass/Vol] 6.4 g/dL Normal 6.4-8.2 [facility] Comment on above: Performed By: #### E RUR #### [facility] [address] [place] [address] Dr. Helio Cee Sodium [Moles/Vol] 141 mmol/L Normal 136-145 [facility] Comment on above: Performed By: #### E RUR #### [facility] [address] [place] [address] Dr. Helio Cee Urea nitrogen [Mass/Vol] 19.0 mg/dL Critically high 7.0-18.0 [facility] Comment on above: Performed By: #### E RUR #### [facility] [address] [place] [address] Dr. Helio Cee Urea nitrogen/Creatinine [Mass ratio] 18.4 mg/mg Normal [facility] Comment on above: Performed By: #### E RUR #### [facility] [address] [place] [address] Dr. Helio Cee XR CHEST 2 Von [...] of left lung infiltrates. Electronically authenticated by: ENU BARRY Date: 2021-11-20 07:56 Normal [facility] BNPon 11-19-2021 Natriuretic peptide B (Bld) [Mass/Vol] 777.0 pg/mL Normal <=900.0 [facility] Comment on above: Performed By: #### E RUR #### [facility] [address] [place] [address] Dr. Helio Cee CBC AUTO DIFFon 11-19-2021 BASO # 0.0 103/ul Normal 0.0-0.1 [facility] Comment on above: Performed By: #### V [id number] #### [facility] [address] [place] [address] Dr. Helio Cee Basophils/100 WBC (Bld) 0.2 % Normal 0.2-2.0 [facility] Comment on above: Performed By: #### V [id number] #### [facility] [address] [place] [address] Dr. Helio Cee EO # 0.1 103/ul Normal 0.0-0.7 [facility] Comment on above: Performed By: #### V [id number] #### [facility] [address] [place] [address] Dr. Helio Cee Eosinophils/100 WBC (Bld) 0.5 % Critically low 0.9-7.0 [facility] Comment on above: Performed By: #### V [id number] #### [facility] [address] [address] [address] Helio Cee Erythrocyte distribution width (RBC) [Ratio] 14.6 % Normal 11.0-15.0 [facility] Comment on above: Performed By: #### V [id number] #### [facility] [address] [place] [address] Dr. Helio Cee Hematocrit (Bld) [Volume fraction] 37.4 % Normal 36.0-48.0 [facility] Comment on above: Performed By: #### V [id number] #### [facility] [address] [place] [address] Dr. Helio Cee Hemoglobin (Bld) [Mass/Vol] 11.5 g/dL Critically low 12.0-16.0 [facility] Comment on above: Performed By: #### V [id number] #### [facility] [address] [place] [address] Dr. Helio Cee IG # 0.07 10e3/ul Critically high 0.00-0.03 [facility] Comment on above: Performed By: #### V [id number] #### [facility] [address] [place] [address] Dr. Helio Cee IG % 0.5 % Normal 0.0-0.5 [facility] Comment on above: Performed By: #### V [id number] #### [facility] [address] [place] [address] Dr. Helio Cee LYMPH # 1.1 103/ul Critically low 1.2-3.8 [facility] Comment on above: Performed By: #### V [id number] #### [facility] [address] [place] [address] Dr. Helio Cee Lymphocytes/100 WBC (Bld) 6.8 % Critically low 20.5-60.0 [facility] Comment on above: Performed By: #### V [id number] #### [facility] [address] [place] [address] Dr. Helio Cee MANUAL DIFF REQ NO Normal [facility] Comment on above: Performed By: #### V [id number] #### [facility] [address] [place] [address] Dr. Helio Cee MCH (RBC) [Entitic mass] 30.1 pg Normal 26.7-34.0 [facility] Comment on above: Performed By: #### V [id number] #### [facility] [address] [place] [address] Dr. Helio Cee MCHC (RBC) [Mass/Vol] 30.7 g/dL Normal 29.9-35.2 [facility] Comment on above: Performed By: #### V [id number] #### [facility] [address] [place] [address] Dr. Helio Cee MCV (RBC) [Entitic vol] 97.9 fL Normal 81.0-99.0 [facility] Comment on above: Performed By: #### V [id number] #### [facility] [address] [place] [address] Dr. Helio Cee MONO # 0.8 103/ul Normal 0.3-0.8 [facility] Comment on above: Performed By: #### V [id number] #### [facility] [address] [place] [address] Dr. Helio Cee Monocytes/100 WBC (Bld) 5.3 % Normal 1.7-12.0 [facility] Comment on above: Performed By: #### V [id number] #### [facility] [address] [place] [address] Dr. Helio Cee NEUT # 13.3 103/ul Critically high 1.4-6.5 [facility] Comment on above: Performed By: #### V [id number] #### [facility] [address] [place] [address] Dr. Helio Cee Neutrophils/100 WBC (Bld) 86.7 % Critically high 43.0-75.0 [facility] Comment on above: Performed By: #### V [id number] #### [facility] [address] [place] [address] Dr. Helio Cee Platelet mean volume (Bld) [Entitic vol] 11.4 fL Normal 9.5-13.5 [facility] Comment on above: Performed By: #### V [id number] #### [facility] [address] [place] [address] Dr. Helio Cee PLT 215 103/ul Normal 150-450 [facility] Comment on above: Performed By: #### V [id number] #### [facility] [address] [place] [address] Dr. Helio Cee RBC 3.82 106/ul Critically low 4.20-5.40 [facility] Comment on above: Performed By: #### V [id number] #### [facility] [address] [place] [address] Dr. Helio Cee WBC 15.3 103/ul Critically high 4.0-11.0 [facility] Comment on above: Performed By: #### V [id number] #### [facility] [address] [place] [address] Dr. Helio Cee PROF 14(COMP METB)on 022 Albumin [Mass/Vol] 2.8 g/dL Critically low 3.4-5.0 [facility] Comment on above: Performed By: #### E RUR #### [facility] [address] [place] [address] Dr. Helio Cee Albumin/Globulin [Mass ratio] 0.8 {ratio} Normal [facility] Comment on above: Performed By: #### E RUR #### [facility] [address] [place] [address] Dr. Helio Cee ALP [Catalytic activity/Vol] 74 U/L Normal 46-116 [facility] Comment on above: Performed By: #### E RUR #### [facility] [address] [place] [address] Dr. Helio Cee ALT [Catalytic activity/Vol] 21 U/L Normal 14-59 [facility] Comment on above: Performed By: #### E RUR #### [facility] [address] [place] [address] Dr. Helio Cee Anion gap [Moles/Vol] 13.5 mmol/L Normal [facility] Comment on above: Performed By: #### E RUR #### [facility] [address] [address] [address] Helio Cee AST [Catalytic activity/Vol] 11 U/L Critically low 15-37 [facility] Comment on above: Performed By: #### E RUR #### [facility] [address] [address] [address] Helio Cee Bilirubin [Mass/Vol] 0.5 mg/dL Normal 0.2-1.0 [facility] Comment on above: Performed By: #### E RUR #### [facility] [address] [address] [address] Helio Cee Calcium [Mass/Vol] 8.4 mg/dL Critically low 8.5-10.1 [facility] Comment on above: Performed By: #### E RUR #### [facility] [address] [address] [address] Helio Cee Chloride [Moles/Vol] 107 mmol/L Normal 98-107 [facility] Comment on above: Performed By: #### E RUR #### [facility] [address] [address] [address] Helio Cee CO2 [Moles/Vol] 21.0 mmol/L Normal 21.0-32.0 [facility] Comment on above: Performed By: #### E RUR #### [facility] [address] [address] [address] Helio Cee Creatinine [Mass/Vol] 1.07 mg/dL Critically high 0.55-1.02 [facility] Comment on above: Performed By: #### E RUR #### [facility] [address] [address] [address] Helio Cee EGFR-AF TRINIDADIAN >60 Normal >=60 [facility] Comment on above: Performed By: #### E RUR #### [facility] [address] [address] [address] Helio Cee EGFR-NON AF TRINIDADIAN 50 mL/min/1.73m2 Critically low >=60 [facility] Comment on above: Performed By: #### E RUR #### [facility] [address] [address] [address] Helio Cee Globulin (S) [Mass/Vol] 3.4 g/dL Normal [facility] Comment on above: Performed By: #### E RUR #### [facility] [address] [address] [address] Helio Cee Glucose [Mass/Vol] 109 mg/dL Critically high 74-106 [facility] Comment on above: Performed By: #### E RUR #### [facility] [address] [address] [address] Helio Cee Potassium [Moles/Vol] 3.5 mmol/L Normal 3.5-5.1 [facility] Comment on above: Performed By: #### E RUR #### [facility] [address] [address] [address] Helio Cee Protein [Mass/Vol] 6.2 g/dL Critically low 6.4-8.2 [facility] Comment on above: Performed By: #### E RUR #### [facility] [address] [address] [address] Helio Cee Sodium [Moles/Vol] 138 mmol/L Normal 136-145 [facility] Comment on above: Performed By: #### E RUR #### [facility] [address] [address] [address] Helio Cee Urea nitrogen [Mass/Vol] 25.0 mg/dL Critically high 7.0-18.0 [facility] Comment on above: Performed By: #### E RUR #### [facility] [address] [address] [address] Helio Cee Urea nitrogen/Creatinine [Mass ratio] 23.4 mg/mg Normal [facility] Comment on above: Performed By: #### E RUR #### [facility] [address] [address] [address] Helio Cee BNPon 11-18-2021 Natriuretic peptide B (Bld) [Mass/Vol] 386.0 pg/mL Normal <=900.0 [facility] Comment on above: Performed By: #### B SEEDLING SORTER, HSTROPN, BMP ####[facility] [id number] [address]Dr. Helio Cee CBC AUTO DIFFon 11-18-2021 BASO # 0.0 103/ul Normal 0.0-0.1 [facility] Comment on above: Performed By: #### V [id number] #### [facility] [address] [address] [address] Helio Cee Basophils/100 WBC (Bld) 0.3 % Normal 0.2-2.0 [facility] Comment on above: Performed By: #### V [id number] #### [facility] [address] [place] [address] Dr. Helio Cee EO # 0.0 103/ul Normal 0.0-0.7 [facility] Comment on above: Performed By: #### V [id number] #### [facility] [address] [address] [address] Helio Cee Eosinophils/100 WBC (Bld) 0.1 % Critically low 0.9-7.0 [facility] Comment on above: Performed By: #### V [id number] #### [facility] [address] [place] [address] Dr. Helio Cee Erythrocyte distribution width (RBC) [Ratio] 14.4 % Normal 11.0-15.0 [facility] Comment on above: Performed By: #### V [id number] #### [facility] [address] [place] [address] Dr. Helio Cee Hematocrit (Bld) [Volume fraction] 43.6 % Normal 36.0-48.0 [facility] Comment on above: Performed By: #### V [id number] #### [facility] [address] [place] [address] Dr. Helio Cee Hemoglobin (Bld) [Mass/Vol] 13.4 g/dL Normal 12.0-16.0 [facility] Comment on above: Performed By: #### V [id number] #### [facility] [address] [place] [address] Dr. Helio Cee IG # 0.03 10e3/ul Normal 0.00-0.03 [facility] Comment on above: Performed By: #### V [id number] #### [facility] [address] [place] [address] Dr. Helio Cee IG % 0.3 % Normal 0.0-0.5 [facility] Comment on above: Performed By: #### V [id number] #### [facility] [address] [place] [address] Dr. Helio Cee LYMPH # 0.4 103/ul Critically low 1.2-3.8 [facility] Comment on above: Performed By: #### V [id number] #### [facility] [address] [place] [address] Dr. Helio Cee Lymphocytes/100 WBC (Bld) 4.0 % Critically low 20.5-60.0 [facility] Comment on above: Performed By: #### V [id number] #### [facility] [address] [place] [address] Dr. Helio Cee MANUAL DIFF REQ NO Normal [facility] Comment on above: Performed By: #### V [id number] #### [facility] [address] [place] [address] Dr. Helio Cee MCH (RBC) [Entitic mass] 29.6 pg Normal 26.7-34.0 [facility] Comment on above: Performed By: #### V [id number] #### [facility] [address] [place] [address] Dr. Helio Cee MCHC (RBC) [Mass/Vol] 30.7 g/dL Normal 29.9-35.2 [facility] Comment on above: Performed By: #### V [id number] #### [facility] [address] [place] [address] Dr. Helio Cee MCV (RBC) [Entitic vol] 96.5 fL Normal 81.0-99.0 [facility] Comment on above: Performed By: #### V [id number] #### [facility] [address] [place], [place] [id number] Dr. Helio Cee MONO # 0.6 103/ul Normal 0.3-0.8 [facility] Comment on above: Performed By: #### V [id number] #### [facility] [address] [place] [address] Dr. Helio Cee Monocytes/100 WBC (Bld) 5.4 % Normal 1.7-12.0 [facility] Comment on above: Performed By: #### V [id number] #### [facility] [address] [place] [address] Dr. Helio Cee NEUT # 9.7 103/ul Critically high 1.4-6.5 [facility] Comment on above: Performed By: #### V [id number] #### [facility] [address] [place] [address] Dr. Helio Cee Neutrophils/100 WBC (Bld) 89.9 % Critically high 43.0-75.0 [facility] Comment on above: Performed By: #### V [id number] #### [facility] [address] [place] [address] Dr. Helio Cee Platelet mean volume (Bld) [Entitic vol] 10.9 fL Normal 9.5-13.5 [facility] Comment on above: Performed By: #### V [id number] #### [facility] [address] [place] [address] Dr. Helio Cee PLT 265 103/ul Normal 150-450 [facility] Comment on above: Performed By: #### V [id number] #### [facility] [address] [place] [address] Dr. Helio Cee RBC 4.52 106/ul Normal 4.20-5.40 [facility] Comment on above: Performed By: #### V [id number] #### [facility] [address] [place] [address] Dr. Helio Cee WBC 10.7 103/ul Normal 4.0-11.0 [facility] Comment on above: Performed By: #### V [id number] #### [facility] [address] [place] [address] Dr. Helio Cee CULTURE BLOODon 11-18-2021 Microscopic examination of blood, culture Culture Observations: NO GROWTH AT 5 DAYS. Normal [facility] Comment on above: Performed By: #### B [id number] #### [facility] [address] [place] [address] Dr. Helio Cee Microscopic examination of blood, culture Culture Observations: NO GROWTH AT 5 DAYS. Normal [facility] Comment on above: Performed By: #### B [id number] #### [facility] [address] [place] [address] Dr. Helio Cee Covid-19 PCR (CVDCHANNING HOME)on SARS-CoV-2 (COVID-19) RNA KIMMY+probe Ql (Unsp spec) Not detected Normal NOT DETECTED [facility] Comment on above: Result [...] for this test is supported by the [facility] [employer]'s declaration that [...] used). Performed By: #### E RUR #### [facility] [address] [place] [address] Dr. Helio Cee ER URINE PROFILEon 2 Bilirubin Ql (U) Negative Normal NEGATIVE [facility] Comment on above: Performed By: #### E RUR #### [facility] [address] [place] [address] Dr. Helio Cee Clarity (U) CLEAR Normal CLEAR [facility] Comment on above: Performed By: #### E RUR #### [facility] [address] [address] [address] Helio Cee Color (U) LT. YELLOW Normal YELLOW [facility] Comment on above: Performed By: #### E RUR #### [facility] [address] [place] [address] Dr. Helio Cee ERUAHAg A micrscopic examina tion will be performed if indicated. Normal [facility] Comment on above: Performed By: #### E RUR #### [facility] [address] [place] [address] Dr. Helio Cee Glucose Ql (U) Negative Normal NEGATIVE [facility] Comment on above: Performed By: #### E RUR #### [facility] [address] [place] [address] Dr. Helio Cee Hemoglobin Ql (U) Negative Normal NEGATIVE [facility] Comment on above: Performed By: #### E RUR #### [facility] [address] [place] [address] Dr. Helio Cee Ketones Ql (U) Negative Normal NEGATIVE [facility] Comment on above: Performed By: #### E RUR #### [facility] [address] [place] [address] Dr. Helio Cee LEUKOCYTES Negative Normal NEGATIVE [facility] Comment on above: Performed By: #### E RUR #### [facility] [address] [place] [address] Dr. Helio Cee Nitrite Ql (U) Negative Normal NEGATIVE [facility] Comment on above: Performed By: #### E RUR #### [facility] [address] [place] [address] Dr. Helio eCe pH (U) 5.5 [pH] Normal 5-9 [facility] Comment on above: Performed By: #### E RUR #### [facility] [address] [place] [address] Dr. Helio Cee SPEC GRAVITY 1.015 Normal 1.005-<=1. 025 [facility] Comment on above: Performed By: #### E RUR #### [facility] [address] [address] [address] Helio Cee UA PROTEIN Negative Normal NEGATIVE/ TRACE [facility] Comment on above: Performed By: #### E RUR #### [facility] [address] [address] [address] Helio Cee UR MICRO IND NOT INDICATED Normal [facility] Comment on above: Performed By: #### E RUR #### [facility] [address] [address] [address] Helio Cee Urobilinogen Qn (U) 0.2 {Nevaeh'U}/dL Normal 0.2 - 1. 0 [facility] Comment on above: Performed By: #### E RUR #### [facility] [address] [address] [address] Helio Cee PROF CHEM 8 (BAS METB)on Anion gap [Moles/Vol] 13.6 mmol/L Normal [facility] Comment on above: Performed By: #### B SEEDLING SORTER, HSTROPN, BMP ####[facility] [address] [address]Dr. Helio Cee Calcium [Mass/Vol] 9.1 mg/dL Normal 8.5-10.1 [facility] Comment on above: Performed By: #### B SEEDLING SORTER, HSTROPN, BMP ####[facility] [address] [address]Dr. Helio Cee Chloride [Moles/Vol] 110 mmol/L Critically high 98-107 [facility] Comment on above: Performed By: #### B SEEDLING SORTER, HSTROPN, BMP ####[facility] [address] [address]Dr. Helio Cee CO2 [Moles/Vol] 22.9 mmol/L Normal 21.0-32.0 [facility] Comment on above: Performed By: #### B SEEDLING SORTER, HSTROPN, BMP ####[facility] [address] [address]Dr. Helio Cee Creatinine [Mass/Vol] 1.47 mg/dL Critically high 0.55-1.02 [facility] Comment on above: Performed By: #### B SEEDLING SORTER, HSTROPN, BMP ####[facility] [address] [address]Dr. Helio Cee EGFR-AF TRINIDADIAN 42 mL/min/1.73m2 Critically low >=60 [facility] Comment on above: Performed By: #### B SEEDLING SORTER, HSTROPN, BMP ####[facility] [address] [place], [place] [address]Dr. Yilan Cee EGFR-NON AF TRINIDADIAN 35 mL/min/1.73m2 Critically low >=60 [facility] Comment on above: Performed By: #### B SEEDLING SORTER, HSTROPN, BMP ####[facility] [address] [place], [place] [address]Dr. Helio Cee Glucose [Mass/Vol] 120 mg/dL Critically high 74-106 [facility] Comment on above: Performed By: #### B SEEDLING SORTER, HSTROPN, BMP ####[facility] [address] [place], [place] [address]Dr. Helio Cee Potassium [Moles/Vol] 3.5 mmol/L Normal 3.5-5.1 [facility] Comment on above: Performed By: #### B SEEDLING SORTER, HSTROPN, BMP ####[facility] [address] [address]Dr. Helio Cee Sodium [Moles/Vol] 143 mmol/L Normal 136-145 [facility] Comment on above: Performed By: #### B SEEDLING SORTER, HSTROPN, BMP ####[facility] [address] [place], [place] [address]Dr. Helio Cee Urea nitrogen [Mass/Vol] 29.0 mg/dL Critically high 7.0-18.0 [facility] Comment on above: Performed By: #### B SEEDLING SORTER, HSTROPN, BMP ####[facility] [address] [address]Dr. Helio Cee Urea nitrogen/Creatinine [Mass ratio] 19.7 mg/mg Normal [facility] Comment on above: Performed By: #### B SEEDLING SORTER, HSTROPN, BMP ####[facility] [address] [place], [place] [address]Jp. Helio Cee TROPONIN, HIGH SENSITIVITYon 11-18-2021 HSTROP 8.2 pg/mL Normal 4.0-51.3 [facility] Comment on above: Result Comment: CUT- OFF POINTS HAVE BEEN ESTABLISHED BASED ON THE FOURTH UNIVERSAL DEFINITIONS OF MYOCARDIAL INFARCTION. THE UPPER REFERENCE LIMIT (URL) OF TROPONIN, DEFINED THE 99TH PERCENTILE OF cTnI DISTRIBUTION IN A REFERENCE POPULATION, HAS BEEN CONFIRMED THE DECISION THRESHOLD FOR NC DIAGNOSIS. Performed By: #### B SEEDLING SORTER, HSTROPN, BMP ####[facility] [address] [place], [place] [address]Kg. Helio Cee XR CHEST 1 Von 11-18-2021 [...] MILLER Date: 2021-11-18 10:38 Normal [facility] BNPon 10-25-2021 Natriuretic peptide B (Bld) [Mass/Vol] 396.0 pg/mL Normal <=900.0 [facility] Comment on above: Performed By: #### V [id number] #### [facility] [address] [address] [address] Helio Cee CBC AUTO DIFFon 10-25-2021 BASO # 0.1 103/ul Normal 0.0-0.1 [facility] Comment on above: Performed By: #### E RUR #### [facility] [address] [address] [address] Helio Cee Basophils/100 WBC (Bld) 1.0 % Normal 0.2-2.0 [facility] Comment on above: Performed By: #### E RUR #### [facility] [address] [place] [address] Dr. Helio Cee EO # 0.2 103/ul Normal 0.0-0.7 [facility] Comment on above: Performed By: #### E RUR #### [facility] [address] [place] [address] Dr. Helio Cee Eosinophils/100 WBC (Bld) 2.7 % Normal 0.9-7.0 [facility] Comment on above: Performed By: #### E RUR #### [facility] [address] [place] [address] Dr. Helio Cee Erythrocyte distribution width (RBC) [Ratio] 14.6 % Normal 11.0-15.0 [facility] Comment on above: Performed By: #### E RUR #### [facility] [address] [place] [address] Dr. Helio Cee Hematocrit (Bld) [Volume fraction] 44.8 % Normal 36.0-48.0 [facility] Comment on above: Performed By: #### E RUR #### [facility] [address] [place] [address] Dr. Helio Cee Hemoglobin (Bld) [Mass/Vol] 13.8 g/dL Normal 12.0-16.0 [facility] Comment on above: Performed By: #### E RUR #### [facility] [address] [place] [address] Dr. Helio Cee IG # 0.03 10e3/ul Normal 0.00-0.03 [facility] Comment on above: Performed By: #### E RUR #### [facility] [address] [place] [address] Dr. Helio Cee IG % 0.3 % Normal 0.0-0.5 [facility] Comment on above: Performed By: #### E RUR #### [facility] [address] [place] [address] Dr. Helio Cee LYMPH # 1.6 103/ul Normal 1.2-3.8 [facility] Comment on above: Performed By: #### E RUR #### [facility] [address] [address] [address] Helio Cee Lymphocytes/100 WBC (Bld) 18.5 % Critically low 20.5-60.0 [facility] Comment on above: Performed By: #### E RUR #### [facility] [address] [address] [address] Helio Cee MANUAL DIFF REQ NO Normal [facility] Comment on above: Performed By: #### E RUR #### [facility] [address] [place] [address] Dr. Helio Cee MCH (RBC) [Entitic mass] 29.9 pg Normal 26.7-34.0 [facility] Comment on above: Performed By: #### E RUR #### [facility] [address] [place] [address] Dr. Helio Cee MCHC (RBC) [Mass/Vol] 30.8 g/dL Normal 29.9-35.2 [facility] Comment on above: Performed By: #### E RUR #### [facility] [address] [place] [address] Dr. Helio Cee MCV (RBC) [Entitic vol] 97.2 fL Normal 81.0-99.0 [facility] Comment on above: Performed By: #### E RUR #### [facility] [address] [place] [address] Dr. Helio Cee MONO # 0.6 103/ul Normal 0.3-0.8 [facility] Comment on above: Performed By: #### E RUR #### [facility] [address] [place] [address] Dr. Helio Cee Monocytes/100 WBC (Bld) 7.0 % Normal 1.7-12.0 [facility] Comment on above: Performed By: #### E RUR #### [facility] [address] [place] [address] Dr. Helio Cee NEUT # 6.1 103/ul Normal 1.4-6.5 [facility] Comment on above: Performed By: #### E RUR #### [facility] [address] [address] [address] Helio Cee Neutrophils/100 WBC (Bld) 70.5 % Normal 43.0-75.0 [facility] Comment on above: Performed By: #### E RUR #### [facility] [address] [id number] [address] Helio Cee Platelet mean volume (Bld) [Entitic vol] 11.0 fL Normal 9.5-13.5 [facility] Comment on above: Performed By: #### E RUR #### [facility] [address] [address] [address] Helio Cee PLT 292 103/ul Normal 150-450 [facility] Comment on above: Performed By: #### E RUR #### [facility] [address] [address] [address] Helio Cee RBC 4.61 106/ul Normal 4.20-5.40 [facility] Comment on above: Performed By: #### E RUR #### [facility] [address] [id number] [address] Helio Cee WBC 8.6 103/ul Normal 4.0-11.0 [facility] Comment on above: Performed By: #### E RUR #### [facility] [address] [place] [address] Dr. Helio Cee ECHOCARDIO M/2D COMPLETEon 0 10-25-2021 ECHOCARDIO M/2D COMPLETE Patient: AARON LEWIS Exam Date: 10/25/2021 : 1945 Gender:F Ordering : DR JEREMIAH REED M.D. Admission #: [id number] Family : Order #: [id number] CLICK HERE TO VIEW EXAM ECHOCARDIOGRAM REPORT [...] Area(A4C): 20.40 cm2 Left Atrium Systolic Volume(A2C): 91792 mm3 Left Atrium Systolic Volume(A4C): 39019 mm3 Mitral Valve MV E to A Ratio: 0.80 Deceleration Arroyo: 4670 mm/s2 Mitral Valve A-Wave Peak Velocity: [...] Cheema M.D. on 10/25/2021 at 19:31 Normal [facility] MAMM SCREEN 3D EBONI CADon 10-25-2021 MG MAMM SCREEN 3D EBONI CAD Patient: AARON LEWIS Exam Date: 10/25/2021 : 1945 Gender:F Ordering : DR JEREMIAH REED M.D. Admission #: [id number] Family : Order #: [id number] CLICK HERE TO VIEW EXAM RADIOLOGY REPORT [...] breast cancer at age 72. LOCATION: [facility] BREAST COMPOSITION: Heterogeneously dense,which may [...] M.D. on 10/25/2021 at 15:33 Normal [facility] PROF 14(COMP METB)on 022 Albumin [Mass/Vol] 3.8 g/dL Normal 3.4-5.0 [facility] Comment on above: Performed By: #### V [id number] #### [facility] [address] [address] [address] Helio Cee Albumin/Globulin [Mass ratio] 1.1 {ratio} Normal [facility] Comment on above: Performed By: #### V [id number] #### [facility] [address] [address] [address] Helio Cee ALP [Catalytic activity/Vol] 97 U/L Normal 46-116 [facility] Comment on above: Performed By: #### V [id number] #### [facility] [address] [place] [address] Dr. Helio Cee ALT [Catalytic activity/Vol] 31 U/L Normal 14-59 [facility] Comment on above: Performed By: #### V [id number] #### [facility] [address] [address] [address] Helio Cee Anion gap [Moles/Vol] 11.0 mmol/L Normal [facility] Comment on above: Performed By: #### V [id number] #### [facility] [address] [place] [address] Dr. Helio Cee AST [Catalytic activity/Vol] 13 U/L Critically low 15-37 [facility] Comment on above: Performed By: #### V [id number] #### [facility] [address] [address] [address] Helio Cee Bilirubin [Mass/Vol] 0.4 mg/dL Normal 0.2-1.0 [facility] Comment on above: Performed By: #### V [id number] #### [facility] [address] [address] [address] Helio Cee Calcium [Mass/Vol] 9.3 mg/dL Normal 8.5-10.1 [facility] Comment on above: Performed By: #### V [id number] #### [facility] [address] [place] [address] Dr. Helio Cee Chloride [Moles/Vol] 108 mmol/L Critically high 98-107 [facility] Comment on above: Performed By: #### V [id number] #### [facility] [address] [address] [address] Helio Cee CO2 [Moles/Vol] 28.4 mmol/L Normal 21.0-32.0 [facility] Comment on above: Performed By: #### V [id number] #### [facility] [address] [address] [address] Helio Cee Creatinine [Mass/Vol] 1.09 mg/dL Critically high 0.55-1.02 [facility] Comment on above: Performed By: #### V [id number] #### [facility] [address] [address] [address] Helio Cee EGFR-AF TRINIDADIAN 59 mL/min/1.73m2 Critically low >=60 [facility] Comment on above: Performed By: #### V [id number] #### [facility] [address] [address] [address] Helio Cee EGFR-NON AF TRINIDADIAN 49 mL/min/1.73m2 Critically low >=60 [facility] Comment on above: Performed By: #### V [id number] #### [facility] [address] [address] [address] Helio Cee Globulin (S) [Mass/Vol] 3.4 g/dL Normal [facility] Comment on above: Performed By: #### V [id number] #### [facility] [address] [address] [address] Helio Cee Glucose [Mass/Vol] 100 mg/dL Normal 74-106 [facility] Comment on above: Performed By: #### V [id number] #### [facility] [address] [address] [address] Helio Cee Potassium [Moles/Vol] 4.4 mmol/L Normal 3.5-5.1 [facility] Comment on above: Performed By: #### V [id number] #### [facility] [address] [address] [address] Helio Cee Protein [Mass/Vol] 7.2 g/dL Normal 6.4-8.2 [facility] Comment on above: Performed By: #### V [id number] #### [facility] [address] [address] [address] Helio Cee Sodium [Moles/Vol] 143 mmol/L Normal 136-145 [facility] Comment on above: Performed By: #### V [id number] #### [facility] [address] [address] [address] Helio Cee Urea nitrogen [Mass/Vol] 24.0 mg/dL Critically high 7.0-18.0 [facility] Comment on above: Performed By: #### V [id number] #### [facility] [address] [place] [address] Dr. Helio Cee Urea nitrogen/Creatinine [Mass ratio] 22.0 mg/mg Normal [facility] Comment on above: Performed By: #### V [id number] #### [facility] [address] [place] [address] Dr. Helio Cee TSHon 10-25-2021 TSH 0.635 uIU/mL Normal 0.358-3.74 0 [facility] Comment on above: Performed By: #### V [id number] #### [facility] [address] [place] [address] Dr. Helio Cee Vital Signs Date Time Vital Sign Value Performing Clinician Facility 05-27-2024 11:09-0500 Blood Pressure Location BRENDA MAR[facility] 05-27-2024 11:09-0500 Diastolic blood pressure 85 mm[Hg] BRENDA MARIN [facility] 05-27-2024 11:09-0500 Heart rate 103 /min BRENDA MARIN [facility] 05-27-2024 11:09-0500 Respiratory rate 20 /min BRENDA MARIN [facility] 05-27-2024 11:09-0500 Systolic blood pressure 137 mm[Hg] BRENDA MARIN [facility] 05-22-2024 13:08-0500 Body height 160.02 cm Jeremiah Reed MD Work Phone: [facility] 05-22-2024 13:08-0500 Body mass index (BMI) [Ratio] 32.4 kg/m2 Jeremiah Reed MD Work Phone: [facility] 05-22-2024 13:08-0500 Body weight 83 kg Jeremiah Reed MD Work Phone: [facility] 05-22-2024 13:08-0500 Diastolic blood pressure 81 mm[Hg] Jeremiah Reed MD Work Phone: [facility] 05-22-2024 13:08-0500 Heart rate 99 /min Jeremiah Reed MD Work Phone: [facility] 05-22-2024 13:08-0500 SaO2% (BldA) [Mass fraction] 92 % Jeremiah Reed MD Work Phone: [facility] 05-22-2024 13:08-0500 Systolic blood pressure 127 mm[Hg] Jeremiah Reed MD Work Phone: [facility] 04-03-2024 12:00-0500 Body temperature 98 [degF] Jeremiah Reed MD Work Phone: [facility] 04-03-2024 12:00-0500 Diastolic blood pressure 83 mm[Hg] Jeremiah Reed MD Work Phone: [facility] 04-03-2024 12:00-0500 Heart rate 114 /min Jeremiah Reed MD Work Phone: [facility] 04-03-2024 12:00-0500 Respiratory rate 18 /min Jeremiah Reed MD Work Phone: [facility] 04-03-2024 12:00-0500 SaO2% (BldA) [Mass fraction] 94 % Jeremiah Reed MD Work Phone: [facility] 04-03-2024 12:00-0500 Systolic blood pressure 131 mm[Hg] Jeremiah Reed MD Work Phone: [facility] 04-03-2024 06:12-0500 Body weight 86.8 kg Jeremiah Reed MD Work Phone: [facility] 04-02-2024 08:00-0500 Inhaled oxygen flow rate 2 L/min Jeremiah Reed MD Work Phone: [facility] 03-31-2024 13:34-0500 Body height 160.02 cm Jeremiah Reed MD Work Phone: [facility] 03-31-2024 10:50-0500 Diastolic blood pressure 73 mm[Hg] Jeremiah Reed MD Work Phone: [facility] 03-31-2024 10:50-0500 Heart rate 94 /min Jeremiah Reed MD Work Phone: [facility] 03-31-2024 10:50-0500 Respiratory rate 16 /min Jeremiah Reed MD Work Phone: [facility] 03-31-2024 10:50-0500 SaO2% (BldA) [Mass fraction] 98 % Jeremiah Reed MD Work Phone: [facility] 03-31-2024 10:50-0500 Systolic blood pressure 141 mm[Hg] Jeremiah Reed MD Work Phone: [facility] 03-31-2024 07:20-0500 Body height 165.1 cm Jeremiah Reed MD Work Phone: [facility] 03-31-2024 07:20-0500 Body weight 87 kg Jeremiah Reed MD Work Phone: [facility] 03-31-2024 07:19-0500 Body temperature 98.4 [degF] Jeremiah Reed MD Work Phone: [facility] 03-23-2024 18:00-0500 Diastolic blood pressure 62 mm[Hg] Jeremiah Reed MD Work Phone: [facility] 03-23-2024 18:00-0500 Heart rate 82 /min Jeremiah Reed MD Work Phone: [facility] 03-23-2024 18:00-0500 Respiratory rate 18 /min Jeremiah Reed MD Work Phone: [facility] 03-23-2024 18:00-0500 SaO2% (BldA) [Mass fraction] 96 % Jeremiah Reed MD Work Phone: [facility] 03-23-2024 18:00-0500 Systolic blood pressure 128 mm[Hg] Jeremiah Reed MD Work Phone: [facility] 03-23-2024 13:42-0500 Body height 157.48 cm Jeremiah Reed MD Work Phone: [facility] 03-23-2024 13:42-0500 Body temperature 97.3 [degF] Jeremiah Reed MD Work Phone: [facility] 03-23-2024 13:42-0500 Body weight 81.19 kg Jeremiah Reed MD Work Phone: [facility] 03-12-2024 10:04-0400 Body mass index (BMI) [Ratio] 33.5 kg/m2 [facility] 03-12-2024 10:04-0400 Diastolic blood pressure 80 mm[Hg] [facility] 03-12-2024 10:04-0400 Heart rate 103 /min [facility] 03-12-2024 10:04-0400 Systolic blood pressure 133 mm[Hg] [facility] 03-11-2024 13:40-0400 Body height 161.[address] [facility] 03-11-2024 13:40-0400 Body weight 87.[address] [facility] 03-07-2024 11:13-0400 Body temperature 97.7 [degF] Renay Monteiro MD Work Phone: [facility] 03-07-2024 11:13-0400 Diastolic blood pressure 58 mm[Hg] Renay Monteiro MD Work Phone: [facility] 03-07-2024 11:13-0400 Heart rate 111 /min Renay Monteiro MD Work Phone: [facility] 03-07-2024 11:13-0400 Respiratory rate 17 /min Renay Monteiro MD Work Phone: [facility] 03-07-2024 11:13-0400 SaO2% (BldA) [Mass fraction] 91 % Renay Monteiro MD Work Phone: [facility] 03-07-2024 11:13-0400 Systolic blood pressure 137 mm[Hg] Renay Monteiro MD Work Phone: [facility] 03-07-2024 05:26-0400 Body mass index (BMI) [Ratio] 31.92 kg/m2 Renay Monteiro MD Work Phone: [facility] 03-07-2024 05:26-0400 Body weight 87 kg Renay Monteiro MD Work Phone: [facility] 03-02-2024 14:11-0400 Body height 165.1 cm Renay Monteiro MD Work Phone: [facility] 01-24-2024 12:56-0400 Body height 165.1 cm Christiano Maldonado DPM Work Phone: [facility] 01-24-2024 12:56-0400 Body mass index (BMI) [Ratio] 35.45 kg/m2 Christiano Maldonado DPM Work Phone: [facility] 01-24-2024 12:56-0400 Body weight 96.62 kg Christiano Maldonado DPM Work Phone: [facility] 01-24-2024 12:56-0400 Diastolic blood pressure 78 mm[Hg] Christiano Maldonado DPM Work Phone: [facility] 01-24-2024 12:56-0400 Heart rate 79 /min Christiano Maldonado DPM Work Phone: [facility] 01-24-2024 12:56-0400 Systolic blood pressure 125 mm[Hg] Christiano Maldonado DPM Work Phone: [facility] 12-25-2023 12:37-0400 Blood Pressure Location BRENDA MIAH [facility] 12-25-2023 12:37-0400 Body temperature 98.6 [degF] BRENDA MIAH [facility] 12-25-2023 12:37-0400 Diastolic blood pressure 86 mm[Hg] BRENDA MIAH [facility] 12-25-2023 12:37-0400 Heart rate 70 /min BRENDA MIAH [facility] 12-25-2023 12:37-0400 Respiratory rate 16 /min BRENDA MIAH [facility] 12-25-2023 12:37-0400 Systolic blood pressure 137 mm[Hg] BRENDA MIAH [facility] 09-26-2023 15:39-0400 Blood Pressure Location BRENDA MIAH [facility] 09-26-2023 15:39-0400 Diastolic blood pressure 84 mm[Hg] BRENDA MIAH [facility] 09-26-2023 15:39-0400 Heart rate 68 /min BRENDA MIAH [facility] 09-26-2023 15:39-0400 Respiratory rate 16 /min BRENDA MIAH [facility] 09-26-2023 15:39-0400 Systolic blood pressure 132 mm[Hg] BRENDA MIAH [facility] 08-28-2023 14:59-0400 Blood Pressure Location BRENDA MIAH [facility] 08-28-2023 14:59-0400 Body temperature 98.24 [degF] BRENDA MIAH [facility] 08-28-2023 14:59-0400 Diastolic blood pressure 80 mm[Hg] BRENDA MIAH [facility] 08-28-2023 14:59-0400 Heart rate 92 /min BRENDA MIAH [facility] 08-28-2023 14:59-0400 Respiratory rate 16 /min BRENDA MIAH [facility] 08-28-2023 14:59-0400 Systolic blood pressure 132 mm[Hg] BRENDA MIAH [facility] 06-05-2023 12:55-0500 Blood Pressure Location BRENDA MIAH [facility] 06-05-2023 12:55-0500 Diastolic blood pressure 88 mm[Hg] BRENDA MIAH [facility] 06-05-2023 12:55-0500 Heart rate 74 /min BRENDA MIAH [facility] 06-05-2023 12:55-0500 Respiratory rate 16 /min BRENDA MIAH [facility] 06-05-2023 12:55-0500 Systolic blood pressure 134 mm[Hg] BRENDA MIAH [facility] 04-30-2023 15:30-0500 Body height 161.29 cm Jeremiah Reed Other [employer] [facility] [employer] Other 04-30-2023 15:30-0500 Body mass index (BMI) [Ratio] 35.29 kg/m2 Jeremiah Reed Other [employer] Other 04-30-2023 15:30-0500 Body weight 91.81 kg Jeremiah Reed Other [employer] Other 04-30-2023 15:30-0500 Diastolic blood pressure 74 mm[Hg] Jeremiah Reed Other [employer] Other 04-30-2023 15:30-0500 Systolic blood pressure 109 mm[Hg] Jeremiah Reed Other [facility] [employer] Other 04-13-2023 14:40-0500 [employer] [facility] 04-13-2023 14:40-0500 Promise to Return [facility] 04-13-2023 13:00-0500 Diastolic blood pressure 77 mm[Hg] [facility] 04-13-2023 13:00-0500 Heart rate 78 /min [facility] [place] 12-01-2023 13:00-0500 [facility] [facility] 04-13-2023 13:00-0500 Promise to Return [facility] [place] 04-13-2023 13:00-0500 Respiratory rate 16 /min [facility] [place] 04-13-2023 13:00-0500 Systolic blood pressure 127 mm[Hg] [facility] [place] 04-13-2023 12:13-0500 Heart rate 80 /min [facility] 04-13-2023 12:13-0500 SaO2% (BldA) [Mass fraction] 95 % [facility] 04-13-2023 12:12-0500 Body temperature 97.16 [degF] [facility] 04-13-2023 12:11-0500 Diastolic blood pressure 78 mm[Hg] [facility] 04-13-2023 12:11-0500 Mean blood pressure 94 mm[Hg] [facility] 04-13-2023 12:11-0500 Systolic blood pressure 125 mm[Hg] hari [place] 04-13-2023 12:00-0500 [employer] [facility] 04-13-2023 12:00-0500 Promise to Return [facility] 04-13-2023 09:10-0500 Diastolic blood pressure 70 mm[Hg] [facility] 04-13-2023 09:10-0500 Heart rate 87 /min [facility] 04-13-2023 09:10-0500 Mean blood pressure 90 mm[Hg] [facility] 04-13-2023 09:10-0500 Respiratory rate 17 /min [facility] 04-13-2023 09:10-0500 Systolic blood pressure 130 mm[Hg] [facility] 04-13-2023 08:00-0500 SaO2% (BldA) [Mass fraction] 93 % [facility] 04-13-2023 07:29-0500 Heart rate 89 /min [facility] 04-13-2023 07:29-0500 SaO2% (BldA) [Mass fraction] 94 % [facility] 04-13-2023 07:29-0500 Mean blood pressure 88 mm[Hg] [facility] 04-13-2023 07:29-0500 Body temperature 97.88 [degF] [facility] 04-13-2023 05:00-0500 Blood Pressure Location [facility] 04-13-2023 05:00-0500 Heart rate 95 /min [facility] 04-13-2023 05:00-0500 Mean blood pressure 100 mm[Hg] [facility] 04-13-2023 00:18-0500 Blood Pressure Location [facility] 04-13-2023 00:18-0500 Body temperature 97.52 [degF] [facility] 04-12-2023 20:33-0500 Body temperature 97.34 [degF] [facility] 04-12-2023 20:33-0500 Mean blood pressure 88 mm[Hg] [facility] 04-12-2023 18:03-0500 Blood Pressure Location [facility] 04-12-2023 16:49-0500 Respiratory rate 22 /min [facility] 04-12-2023 15:00-0500 Respiratory rate 20 /min [facility] 04-12-2023 12:24-0500 gluc 88 mg/dL [facility] 04-12-2023 12:24-0500 gluc hari [place] 04-12-2023 12:19-0500 Body temperature 97.7 [degF] [employer] [place] 03-29-2023 15:30-0500 Body height 161.29 cm Jeremiah Reed Other [employer] Other 03-29-2023 15:30-0500 Body mass index (BMI) [Ratio] 37.14 kg/m2 Jeremiah Reed Other [employer] Other 03-29-2023 15:30-0500 Body weight 96.62 kg Jeremiah Reed Other [employer] Other 03-29-2023 15:30-0500 Diastolic blood pressure 85 mm[Hg] Jeremiah Reed Other [employer] Other 03-29-2023 15:30-0500 Systolic blood pressure 144 mm[Hg] Jeremiah Reed Other [employer] Other 06-21-2022 14:42-0500 Blood Pressure Location BRENDA MARIN [facility] Encounters Encounter Date Encounter Type Care Provider Facility Start: 10-27-2024 ambulatory BRENDA Rutledgei ty:[facility] Start: 05-27-2024 End: 05-27-2024 ambulatory BRENDA MARIN Facility:[facility] Start: 05-27-2024 End: 05-27-2024 Patient encounter procedure BRENDA MARIN [facility] Start: 05-22-2024 End: 05-22-2024 ambulatory Jeremiah Reed MD Work Phone: [facility] Work Phone: Start: 05-22-2024 End: 05-22-2024 Patient encounter procedure Jeremiah Reed MD Work Phone: [facility] Work Phone: Start: 05-21-2024 Non-patient / Non-visit Jeremiah Reed MD Work Phone: [facility] Work Phone: Start: 04-24-2024 Non-patient / Non-visit Jeremiah Reed MD Work Phone[facility] [place] [facility] Work [facility]: Start: 04-22-2024 Non-patient / Non-visit Jeremiah Reed MD Work Phone: [facility] Work Phone: Start: 04-15-2024 End: 04-15-2024 ambulatory BRENDA MARIN Facility:[facility] Start: 04-15-2024 End: 04-15-2024 Patient encounter procedure BRENDA MARIN [facility] Start: 04-14-2024 Non-patient / Non-visit Jeremiah Reed MD Work Phone: [facility] Work [facility]: Start: 04-02-2024 Non-patient / Non-visit Jeremiah Reed MD Work Phone: [facility] Work Phone: Start: 03-31-2024 End: 04-03-2024 Evaluation and management of inpatient Jeremiah Reed MD Work Phone: [facility] Work Phone: Start: 03-24-2024 Non-patient / Non-visit Jeremiah Reed MD Work Phone: [facility] Work Phone: Start: 03-23-2024 End: 03-23-2024 Emergency department patient visit Jeremiah Reed MD Work Phone: [facility] Work Phone: Start: 03-13-2024 Non-patient / Non-visit Jeremiah Reed MD Work Phone: [facility] Work Phone: Start: 03-12-2024 End: 03-12-2024 ambulatory [facility] Work Phone: Start: 03-12-2024 End: 03-12-2024 Patient encounter procedure [facility] Work Phone: Start: 03-11-2024 Non-patient / Non-visit [facility] Work Phone: Start: 03-10-2024 End: 03-10-2024 Telephone encounter [employer] [facility] Comment on above: Referral Start: 03-10-2024 Non-patient / Non-visit [facility] Work Phone: Start: 03-04-2024 End: 03-04-2024 ambulatory BRENDA MARIN Facility: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 Start: 12-27-2023 End: 12-27-2023 Patient encounter procedure BRENDA MARIN [facility] Start: 12-25-2023 End: 12-25-2023 ambulatory BRENDA MARIN Facility:[facility] Start: 12-25-2023 End: 12-25-2023 Patient encounter procedure BRENDA MARIN [facility] Start: 12-18-2023 Non-patient / Non-visit [facility] Work Phone: Start: 12-17-2023 End: 12-17-2023 ambulatory Drake Delatorre MD Facility:[facility] Start: 12-03-2023 End: 12-03-2023 ambulatory Cayden GALLO Facility:[facility] Start: 12-03-2023 End: 12-03-2023 Patient encounter procedure Cayden GALLO [facility] Start: 11-26-2023 End: 11-26-2023 ambulatory Alexandro CARMONA Facility:[facility] [place] Start: 11-26-2023 End: 11-26-2023 Patient encounter procedure Alexandro CARMONA [facility] Start: 11-08-2023 End: 11-08-2023 ambulatory CHRISTIANO MALDONADO Not Available Start: 10-29-2023 End: 10-29-2023 ambulatory Drake Delatorre MD Facility: [place] Start: 10-15-2023 End: 10-15-2023 ambulatory Drake Delatorre MD Facility: [facility] Start: 09-26-2023 End: 09-26-2023 ambulatory BRENDA MARIN Facility:[facility] [place] Start: 09-26-2023 End: 09-26-2023 Patient encounter procedure BRENDA MARIN [facility] Start: 09-17-2023 End: 09-17-2023 ambulatory Drake Delatorre MD Facility:[facility] [place] Start: 08-30-2023 End: 08-30-2023 ambulatory CHRISTIANO MALDONADO Not Available Start: 08-28-2023 End: 08-28-2023 ambulatory BRENDA MARIN Facility:[facility] Start: 08-28-2023 End: 08-28-2023 Patient encounter procedure [facility] MAR[facility] Start: 07-23-2023 End: 07-23-2023 ambulatory Cayden GALLO Facility:[facility] Start: 07-23-2023 End: 07-23-2023 Patient encounter procedure Cayden GALLO [facility] Start: 07-09-2023 End: 07-09-2023 ambulatory BRENDAROSA ELENA MARIN Facility:[facility] Start: 06-20-2023 End: 06-20-2023 ambulatory Jeremiah Reed Other [employer] Other Start: 06-20-2023 Telephone encounter Jeremiah Reed [facility] Start: 06-05-2023 End: 06-05-2023 ambulatory BRENDA Zulema MIAH Facility:[facility] Start: 06-05-2023 End: 06-05-2023 Lab Drop off BRENDA Zulema MARIN [facility] Start: 06-05-2023 End: 06-05-2023 ambulatory BRENDA Zulema MARIN Facility:[facility] Start: 06-05-2023 End: 06-05-2023 Patient encounter procedure BRENDA Zulema SOLIMANRY [facility] Start: 04-30-2023 End: 04-30-2023 ambulatory Jeremiah Reed Other [employer] Other Start: 04-30-2023 Office outpatient vi sit 25 minutes Jeremiah Reed [facility] Start: 04-30-2023 Telephone encounter Jeremiah Reed [facility] Start: 04-17-2023 End: 04-17-2023 ambulatory Jeremiah Reed Other [employer] Other Start: 04-17-2023 Telephone encounter Jeremiah Reed [facility] Start: 04-13-2023 End: 04-13-2023 ambulatory Ray Fofana Other [employer] Other Start: 04-13-2023 Telephone encounter Ray Fofana [facility] Start: 04-12-2023 End: 04-13-2023 Observation Jacintoag Sydneynadja [facility] Start: 04-09-2023 End: 04-09-2023 ambulatory Drake Delatorre MD Facility:[facility] Start: 03-30-2023 End: 03-30-2023 ambulatory Jeremiah Reed Other [employer] Other Start: 03-30-2023 Telephone encounter Jeremiah Reed [facility] Start: 03-29-2023 End: 03-29-2023 ambulatory Jeremiah Reed Other [employer] Other Start: 03-29-2023 Transitional care manage srvc 14 day discharge Jeremiah Reed [facility] Start: 03-05-2023 End: 03-05-2023 ambulatory Drake Delatorre MD Facility:[facility] Start: 09-01-2022 End: 09-02-[address] JEREMIAH REED Facility:[facility] Start: 08-29-2022 End: 08-30-2022 ambulatory NARENDRANATH LAKSHMIPATHY . Facility:[facility] Start: 08-21-2022 End: 08-22-[address] EHSAN MILLER Facility:[facility] Start: 08-10-2022 End: 08-11-2022 ambulatory BRENT MALDONADO Facility:[facility] Start: 06-21-2022 End: 06-21-2022 Patient encounter procedure BRENDA MARIN [facility] Start: 06-12-2022 End: 06-13-[address] [...] encounter procedure [facility] L [facility] Start: 08-21-2018 End: 08-21-2018 Patient encounter procedure [facility] L Clinker [facility] Start: 06-28-2018 End: 06-28-2018 Patient encounter procedure Rad[facility] L Clinker [facility] Procedures Date Procedure Procedure Detail [...] Adult BMI Screening Adult BMI Screen ing [facility] Start: 03-02-2025 Depression Screening Depression Scre ening [facility] Start: 03-02-2025 Tobacco Screening Tobacco Screening [facility] Start: 04-03-2024 End: 04-03-2024 Patient encounter procedure 04/03/2024 1:30 PM EST Procedure Visit [facility] [address] [place] [address] Christiano Maldonado DPM [address] [facility] [place] [address] [place] [address] [facility] Start: 04-03-2024 [facility] Start: 04-02-2024 Referral to rehabilitation physician [facility] Start: 04-01-2024 Comprehensive metabo lic 2000 panel - Serum or Plasma [facility] Start: 04-01-2024 [facility] Start: 03-31-2024 Bacteria identified in Blood by Culture Blood Culture [facility] Start: 03-31-2024 Bacteria identified in Urine by Culture Urine Culture [facility] Start: 03-31-2024 Physical therapy procedure [facility] Start: 03-31-2024 Referral to occupati onal therapist [facility] Start: 03-31-2024 Urine culture [facility] Start: 03-31-2024 [facility] Start: 03-31-2024 Hospital admission [facility] Start: 03-31-2024 End: 03-31-2024 [facility] Start: 03-31-2024 Urine culture [facility] Start: 03-23-2024 Urine culture [facility] Start: 03-23-2024 Bacteria identified in Urine by Culture Urine Culture [facility] Start: 01-24-2024 End: 01-24-2024 Patient encounter procedure 01/24/2024 1:00 PM EDT Procedure Visit [facility] [address] [facility] [address] [place] [id number] Christiano Maldonado DPM [address] [facility] [place] [place] [address] [place] [address] Onychomycosis (Primary Dx); Toe pain, bilateral [facility] Comment on above: Onychomycosis (Prima ry Dx); Toe pain, bilateral Start: 01-13-2024 COVID-19 Vaccine ( season) COVID-19 Vaccine ( season) [facility] [employer] Start: 01-13-2024 Influenza vaccination [facility] Start: 10-26-2022 ambulatory Ambulatory Facility:[facility] Start: 01-12-2019 Influenza vaccination INFLUENZ A VACCINE (Season Ended) [facility] Start: 01-12-2018 Influenza vaccination INFLUENZA VACC INE (#1) [facility] Start: 02-10-2012 Fall Risk Screening Fall Risk Screen ing [facility] Start: 02-10-2012 Pneumococcal vaccination PNEUM OCOCCAL VACCINE SERIES (1 of 2 - PCV13) [facility] Start: 02-10-2012 Pneumococcal Vaccine : 65+ Years (1 of 1 - PCV) Pneumococcal Vaccine: 65+ Years (1 of 1 - PCV) [facility] Start: 1997 Administration of varicella zoster vaccine Zoster (Shingles) Vaccine (1 of 2) [facility] Start: 1997 Protein mass conc COLON CANCER SCREENING DISCUSSION [facility] Start: 1997 Zoster vaccine hzv l derrell for subcutaneous use ZOSTER (SHINGLES) VACCINE (1 of 2) [facility] Start: 1987 Fasting lipid profile LIPID SCREENIN G [facility] Start: 1987 Protein mass conc MAMMOGRAM SC REENING DISCUSSION [facility] Start: 02-10-1968 Screening for malign ant neoplasm of cervix PAP SMEAR DISCUSSION [facility] Start: 1966 DTaP,Tdap and Td Vaccines (1 - Tdap) DTaP,Tdap and Td Vaccines (1 - Tdap) [facility] Start: 1966 Third diphtheria, tetanus and acellular pertussis (DTaP) vaccination TDAP (ADULT) [facility] Start: 1965 Tetanus vaccination [facility] Start: 1947 Hepatitis C antibody , confirmatory test HEPATITIS C VIRUS SCREENING [facility] Start: 1947 Medicare Annual Well ness Visit Medicare Annual Wellness Visit [facility] Start: 1947 Screening for osteoporosis DEXA SCAN DISCUSSION [facility] Bacteria identified in Cerebral spinal fluid by Culture Spinal Fluid culture includes gram stain, CSF Microbiology Routine 03/04/2024 9:30 AM EDT [facility] Work Phone: End: 03-05-2025 Basic metabolic 2000 panel - Serum or Plasma Basic Metabolic Panel Lab Routine 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 starting 03/05/2024 until 03/05/2025 [facility] Work Phone: Comment on above: Once a [...] completed Oxygen Therapy - Maintain SpO2: 90%; *SONOGRAPHER Guidelines for O2: Yes; Document: \[email or web address]\epi c\[email or web address]_Reference\Orders\ Respiratory Care Guidelines\CPG Oxygen 2022.pdf Oxygen Therapy - Maintain SpO2: 90%; *SONOGRAPHER Guidelines for O2: Yes; Document: \[email or web address]\ep ic\EPIC_Reference\Order s\Respiratory Care Guidelines\CPG Oxygen 2022.pdf Respiratory Care Routine As Needed until discontinued starting 03/02/2024 [facility] Work Phone: Comment on above: As Needed until disc ontinued starting 03/02/2024 Patient Education Constipation, Adult (DC) Urinary Tract Infection, Adult (DC) [facility] Work Phone: Patient referral [facility] Work Phone: Urine culture [facility] Immunizations Immunization Date Immunization Notes Care Provider Fa cili 03-31-2021 SARS-CoV-2 (COVID-19 ) mRNA BNT-162b2 vax BRENDA MARIN [facility] 07-21-2020 SARS-CoV-2 (COVID-19 ) Ad26 vaccine, recombinant BRENDA MARIN [facility] 04-11-2020 influenza virus vaccine, unspecified formulation BRENDA MARIN [facility] 04-11-2020 Influenza, High-dose , Quadrivalent Renay Monteiro MD Work Phone: [facility] 02-02-2011 influenza virus vaccine, unspecified formulation BRENDA MARIN [facility] 02-02-2011 influenza, seasonal, injectable Renay Monteiro MD Work Phone: [employer] Payers Date Payer Category Payer Unknown [id number] 2024 Self-pay [id number] 2021 [employer] Member Subscriber Plan / Payer (Effective 2021-Present) Name: Aaron Lewis Relation to Subscriber: Self Name: Aaron Lewis Payer ID: Not on file Type: Not on file Address: [place] [id number] 2021 Unknown 2012 Medicare 1959 Medicare [id number] 1959 Unknown [id number] 1945 Unknown [id number] 2..840.1.965269.3.579.2.5 1945 Unknown [id number] 2.840.1.152246.3.579.2.5 1947 Unknown [id number] 2.16840.1.996961.3.579.2.5 1947 Unknown [id number] 2.16840.1.950292.3.579.2.5 1947 Unknown [id number] 2.16.840.1.427288.3.579.2.5 1947 Unknown [id number] 2.16.840.1.960445.3.579.2.5 93 1947 Unknown [id number] 2.16.840.1.083074.3.579.2.5 93 1947 Unknown [id number] 2.16.840.1.377504.3.579.2.5 93 1947 Unknown [id number] 2.16.840.1.818584.3.579.2.5 93 1947 Unknown [id number] 2.16.840.1.509739.3.579.2.5 93 1947 Unknown [id number] 2.16.840.1.927112.3.579.2.5 1947 Unknown [id number] 2.16.840.1.635949.3.579.2.5 1947 Unknown [id number] 2.16.840.1.979082.3.579.2.5 1947 Unknown [id number] 2.16.840.1.192522.3.579.2.5 1947 Unknown [id number] 2.16.840.1.505775.3.579.2.5 1947 Unknown [id number] 2.16.840.1.245524.3.579.2.5 1947 Unknown [id number] 2.16.840.1.083560.3.579.2.5 1947 Unknown [id number] 2.16.840.1.001325.3.579.2.5 1947 Unknown [id number] 2.16.840.1.143644.3.579.2.5 1947 Unknown [id number] 2.16.840.1.234010.3.579.2.5 1947 Unknown [id number] 2.16.840.1.632270.3.579.2.5 93 1947 Unknown [id number] 2.16.840.1.003913.3.579.2.1 259 1947 Unknown [id number] 2.16.840.1.377375.3.579.2.1 259 1947 Unknown [id number] 2.16.840.1.637235.3.579.2.1 259 1947 Unknown [id number] 2.16.840.1.272753.3.579.2.1 96 1947 Unknown [id number] 2.16.840.1.924786.3.579.2.1 96 1947 Unknown [id number] 2.16.840.1.909639.3.579.2.1 96 1947 Unknown [id number] 2.16.840.1.327489.3.579.2.1 96 1947 Unknown [id number] 2.16.840.1.562258.3.579.2.1 96 1947 Unknown [id number] 2.16.840.1.747927.3.579.2.1 96 1947 Unknown [id number] 2.16.840.1.178771.3.579.2.1 96 1947 Unknown [id number] 2.16.840.1.632538.3.579.2.1 96 1947 Unknown [id number] 2.16.840.1.820973.3.579.2.7 27 1947 Unknown [id number] 2.16.840.1.433411.3.579.2.7 27 1947 Unknown [id number] 2.16.840.1.677774.3.579.2.7 27 1947 Unknown [id number] 2.16.840.1.623059.3.579.2.7 27 1947 Unknown [id number] 2.16.840.1.079842.3.579.2.7 1947 Unknown [id number] 2.16.840.1.801078.3.579.2.7 1947 Unknown [id number] 2.16.840.1.694881.3.579.2.7 1947 Unknown [id number] 2.16.840.1.555535.3.579.2.7 1947 Unknown [id number] 2.16.840.1.878397.3.579.2.7 1947 Unknown [id number] 2.16.840.1.823174.3.579.2.7 1947 Unknown [id number] 2.16.840.1.256388.3.579.2.7 1947 Unknown [id number] 2.16.840.1.960307.3.579.2.7 1947 Unknown [id number] 2.16.840.1.178633.3.579.2.7 1947 Unknown [id number] 2.16.840.1.926213.3.579.2.7 1947 Unknown [id number] 2.16.840.1.309178.3.579.2.7 27 Unknown Regular Insurance [id number] Unknown [id number] 2.16.840.1.515079.3.579.2.5 31 Unknown [id number] 2.16.840.1.452439.3.579.2.5 31 Social History Date Type Detail Facility [facility] [employer] Start: 1945 Sex Assigned At Not on file [facility] Start: 02-03-2021 End: 03-02-2024 Tobacco smoking status Ex-smoker (finding) [facility] Start: 11-08-2023 End: 03-02-2024 [address] Female [facility] Tobacco smoking status Never [facility] Start: 1945 Sex Assigned At Female [facility] Start: 03-23-2024 End: 03-31-2024 Tobacco smoking status NHIS Never smoked tobacco (finding) [facility] Start: 03-01-2024 End: 03-23-2024 Sex Female (finding) [facility] History of tobacco use Current smoker [facility] History of tobacco use Cigarette Smoker [facility] History of tobacco use Passive smoker [facility] Start: 08-30-2023 End: 03-02-2024 Tobacco use and exposure Smokeless tobacco non-user [facility] Start: 11-08-2023 End: 01-24-2024 Alcoholic beverage intake Defer [facility] Start: 11-08-2023 End: 03-02-2024 History of Social function [facility] Start: 03-05-2024 Alcoholic beverage intake Lifetime non-drinker (finding) [employer] Has the Boke, Enteye, or water [employer] threatened to shut off services in your home in past 12Mo No [employer] How often to you hav e a drink containing alcohol? Never [employer] Goals Date Patient Goal Desired Activity /State Personal health goal Comment on above: Formatting of this n ote might be different from the original. Evaluation of progress towards goal: Functional Status Date Assessment Result Facility 05-27-2024 Functional Status N/A [facility] 04-03-2024 Functional status Patient at [facility] Work Phone: 12-25-2023 Functional Status N/A [facility] 12-03-2023 Functional Status N/A [facility] 09-26-2023 Functional Status N/A [facility] 08-28-2023 Functional Status N/A [facility] 06-05-2023 Functional Status N/A [facility] 04-12-2023 Functional Status N/A [facility] 04-12-2023 Functional Status [facility] 06-21-2022 Functional Status N/A [facility] [employer] Mental Status Date Assessment Result Facility 04-03-2024 Cognitive function Cognitive Sta tus Patient at Baseline [facility] Work Phone: [employer] Clinical Notes 01-12-2013 to 05-27-2024 Note [...] your health care provider. General instructions Take whbv-xmy-jkloacx and prescription medicines only as told by [...] provider. Document Revised: 01/17/2021 Document Reviewed: 01/17/2021 [employer] Patient Education 2023 [employer]. Follow Up Care 05/15/2024 14:25:45 With:BRENDA MARIN PA-C, URL Address: [address] [place] [address]. [place] [address] Business (1) When:6 weeks [facility] 05-27-2024 Note Patient Education Obstetrics and [...] health care provider. General instructions ??? Take axys-npz-sqwybdb and prescription medicines only as told by [...] drink, and whe (more content not included)... [facility] 04-03-2024 Progress note Note Date/Time April 03, 2024 9:49am [facility] [address] [place] [address] Hospitalist Progress Note Signed Patient: Aaron Lewis MR#: [id number] : 1945 Acct:[id number] Age/Sex: 79 / F Adm Date: 4 Loc: 3T Room: [address] [place] [address] Type: ADM IN Attending Dr: Rosendo Law [...] retention PT OT recommended rehab Discharge to longterm facility today Medically remained stable Will need [...] phone and updated him as well at [phone] Moderate level of MDM based on above issue and discussing plan This note is created using voice recognition software. All efforts were made tominimize errors, if they are is due to perfusionist. Rosendo Law MD Hospitalist Documented By: Rosendo Law MD 04/03/2447 Signed By: <Electronically signed by Rosendo Law MD> 04/03/24 0949 [facility] Work Phone: 1(365) 535-644111-21-2024 Discharge summary Author Rosendo Law [facility] Note Date/Time April 03, 2024 9:46am [facility] [address] [place] [address] Discharge Summary Signed with Davis Patient: Aaron Lewis MR#: [id number] : 1945 Acct:[id number] Age/Sex: 79 / F Adm Date: 4 Loc: 3T Room: [address] [place] [address]: Rosendo Law MD Copies to: MD Rosendo Wray MD~ ADDENDUM1 Spoke with patient's son Martin over the phone and updated him as well. Plan for discharge to [facility] today. Follow-up with urology as outpatient. [...] Discharge Plan Discharge Plan Patient Disposition: Rehab [facility] Activity: Ambulate as Tolerated Diet: Low-Sodium Prescriptions: [...] unit) capsule 50 mcg PO DAILY glucosamine umj-hvsjuujcun-uqo 500-400-200 mg tablet 1 tab PO BID [...] signed by Rosendo Law MD> 04/02/24 1050 [facility] Work Phone: 1(117) 831-601211-21-2024 [place] [id number] Hospital[place] Progress Note Signed Patient: Aaron Lewis MR#: [id number] : 1945 Acct:[id number] Age/Sex: 79 / F Adm Date: 4 Loc: Room: [address] [place] [address] Type: ADM IN Attending Dr: Rosendo Law [...] retention PT OT recommended rehab Discharge to longterm facility today Medically remained stable Will need [...] phone and updated him as well at [phone] Moderate level of MDM based on above issue and discussing plan This note is created using voice recognition software. All efforts were made tominimize errors, if they are is due to perfusionist. Rosendo Law MD Hospitalist Documented By: Rosendo Law MD 04/03/2447 Signed By: 04/03/2449 [facility]11-21-2024 [place] [address] Discharge Summary Signed with Addenda Patient: Aaron Lewis MR#: [id number] : 1945 Acct:[id number] Age/Sex: 79 / F Adm Date: 4 Loc: Room: [address] [place] [address]: Rosendo Law MD Copies to: MD Rosendo Wray MD~ ADDENDUM1 Spoke with patient's son Martin over the phone and updated him as well. Plan for discharge to [facility] today. Follow-up with urology as [...] Discharge Plan Discharge Plan Patient Disposition: Rehab [facility] Activity: Ambulate as Tolerated Diet: Low-Sodium Prescriptions: [...] unit) capsule 50 mcg PO DAILY glucosamine dkh-amluxrevbu-wor 500-400-200 mg tablet 1 tab PO BID [...] MD 04/02/24 104 Signed By: 04/02/24 1050 [facility]11-20-2024 Consult note Author Ray Fofana [facility] Note Date/Time April 02, 2024 2:18pm [facility] [address] [place] [address] Physiatry (Rehab) Consult Note Signed Patient: Aaron Lewis MR#: [id number] : 1945 Acct:[id number] Age/Sex: 79 / F Adm Date: 4 Loc: Room: [address] [place] [address] Type: ADM IN Attending Dr: Rosendo Law [...] at home. 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 [facility] Osteoporosis Primary hyperparathyroidism Landaverde's neuroma Hyperparathyroidism Hypercalcemia Essential (primary) hypertension COPD, moderate CKD (chronic kidney disease), stage III Anxiety Osteoporosis Problem List clean-up per request of Phys. EHR Cmte Smoker Problem List clean-up per request of Phys. EHR [facility] Uterine cancer Problem List clean-up per request of Phys. EHR [facility] GERD (gastroesophageal reflux disease) Problem List clean-up per request of Phys. EHR [facility] Ovarian cancer right Problem List clean-up per request of Phys. EHR [facility] Surgical History H/O: hysterectomy History of lumbar laminectomy History of lumbar fusion Problem List clean-up per request of Phys. EHR [facility] H/O left breast biopsy Problem List clean-up per request of Phys. E[facility] H/O hysterectomy with oophorectomy Problem List clean-up per request of Phys. EHR [facility] H/O oophorectomy right Problem List clean-up per request of Phys. EHR [facility] Family History Sister Brittle bone disease [...] recommend lower level of care such as longterm facility or home with home health care Patient was personally seen by me, Dr. Fofana, on the day of encounter, reviewed the history and the relevant portions of the chart, including current orders, allied health and client service consultant notes, labs/imaging and performed damon elements of exam and I formulated the plan of care and facilitated the medical decision making. I completed a substantive portion of this encounter, the medical decision making portion of this note in its entirety, including Allied health note review, nursing note review, client service consultant note review, discussion with nursing and case management, and more than 50% of my time was spent on counseling and coordination of care, time spent 45 minutes Documented By: Ray Fofana MD 04/02/24 0853 Signed By: <Electronically signed by Ray Fofana MD> 04/02/24 [facility]8 [facility] Work Phone: 1(617) 930-241511-20-2024 [place] [address] Physiatry (Rehab) Consult Note Signed Patient: Aaron Lewis MR#: [id number] : 1945 Acct:[id number] Age/Sex: 79 / F Adm Date: 4 Loc: Room: [address] [place] [address] Type: ADM IN Attending Dr: Rosendo Law [...] at home. 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 Fofana, on the day of encounter, reviewed the history and therelevant portions of the chart, including current orders, allied health and client service consultant notes, labs/imaging and performed damon elements of exam and I formulated the plan of care and facilitated the medical decision making. I completed a substantive portion of this encounter, the medical decision making portion of this note in its entirety, including Allied health note review, nursing note review, client service consultant note review, discussion with nursing and case management, and more than 50% of my time was spent on counseling and coordination of care, time spent 45 minutes Documented By: Ray Fofana MD 04/02/24 0853 Signed By: 04/02/24 1418 [facility]11-19-2024 Progress note Author Rosendo Law [facility] Note Date/Time April 01, 2024 9:55am [facility] [address] [place] [address] Hospitalist Progress Note Signed Patient: Aaron Lewis MR#: [id number] : 1945 Acct:[id number] Age/Sex: 79 / F Adm Date: 4 Loc: Room: [address] [place] [address] Type: ADM IN Attending Dr: Rosendo Law [...] 04/01/25 08:59 40 mg DAILY [facility] Administration Polyethylene Glycol 17 gm 03/31/24 12:33 [...] errors, if they are is due to perfusionist. Rosendo Law MD Hospitalist Documented By: Rosendo Law MD 04/01/24 0951 Signed By: <Electronically signed by Rosendo Law MD> 04/01/24 0955 [facility] Work Phone: 1(463) 105-393411-19-2024 [place] [address] Hospitalist Progress Note Signed Patient: Aaron Lewis MR#: [id number] : 1945 Acct:[id number] Age/Sex: 79 / F Adm Date: 4 Loc: Room: [address] [place] [address] Type: ADM IN Attending Dr: Rosendo Law [...] 100 mls/hr 04/01/24 11:00 Rocephin IV DAILY@1100 JEFRFEY Melatonin 3 mg 03/31/24 12:15 03/31/24 21:40 [...] errors, if they are is due to perfusionist. Rosendo Law MD Hospitalist Documented By: Rosendo Law MD 04/01/24 0951 Signed By: 04/01/24 0955 [facility]11-18-2024 History and physical note Author Rosendo Law [facility] Note Date/Time March 31, 2024 12:29pm [facility] [address] [place], [place] [id number] Hospitalist H&P Signed Patient: Aaron Lewis MR#: [id number] : 1945 Acct:[id number] Age/Sex: 79 / F Adm Date: 4 Loc: 3T Room: [address] [place] [address] Type: ADM IN Attending Dr: Rosendo Law [...] and referred to hospitalist service forfurther management. [facility] Medical History (Updated 03/31/24 @ 12:27 by [...] % (Auto) 19.2 % (.) 03/31/24 07:57 [place] % (Auto) 8.9 % (.) 03/31/24 07:57 Eos % (Auto) 2.6 % (.) 03/31/24 07:57 Baso % (Auto) 1.1 % (.) 03/31/24 07:57 Nucleat RBC Rel Count 0.1 /100 WBC (0-0.5) 03/31/24 07:57 Neut # (Auto) 4.7 x10E3/uL (1.8-7.7) 03/31/24 07:57 Lymph # (Auto) 1.3 x10E3/uL (1.00-4.8) 03/31/24 07:57 [place] # (Auto) 0.6 x10E3/uL (0.0-0.8) 03/31/24 07:57 [...] pH 6.0 (5.0-9.0) 03/31/24 07:19 Ur Specific [place] 1.011 (1.001-1.030) 03/31/24 07:19 Urine Protein Negative [...] errors, if they are is due to perfusionist. Rosendo Law MD Hospitalist IP vs OBS [...] signed by Rosendo Law MD> 03/31/24 1229 [facility] Work Phone: 1(536) 484-964611-18-2024 [place] [address] Hospitalist H&P Signed Patient: Aaron Lewis MR#: [id number] : 1945 Acct:[id number] Age/Sex: 79 / F Adm Date: 4 Loc: Room: [address] [place] [address] Type: ADM IN Attending Dr: Rosendo Law [...] and referred to hospitalist service forfurther management. [facility] Medical History (Updated 03/31/24 @ 12:27 by [...] List clean-up per request of Phys. [facility] Surgical History H/O: hysterectomy History of lumbar laminectomy History of lumbar fusion Problem List clean-up per request of Phys. [facility] H/O left breast biopsy Problem List clean-up per request of Phys. EHR [facility] H/O hysterectomy with oophorectomy Problem List clean-up per request of Phys. EHR Cmte H/O oophorectomy right Problem List clean-up per request of Phys. [facility] Family History Sister Brittle bone disease [...] % (Auto) 19.2 % (.) 03/31/24 07:57 [place] % (Auto) 8.9 % (.) 03/31/24 07:57 Eos % (Auto) 2.6 % (.) 03/31/24 07:57 Baso % (Auto) 1.1 % (.) 03/31/24 07:57 Nucleat RBC Rel Count 0.1 /100 WBC (0-0.5) 03/31/24 07:57 Neut # (Auto) 4.7 x10E3/uL (1.8-7.7) 03/31/24 07:57 Lymph # (Auto) 1.3 x10E3/uL (1.00-4.8) 03/31/24 07:57 [place] # (Auto) 0.6 x10E3/uL (0.0-0.8) 03/31/24 07:57 [...] pH 6.0 (5.0-9.0) 03/31/24 07:19 Ur Specific [place] 1.011 (1.001-1.030) 03/31/24 07:19 Urine Protein Negative [...] errors, if they are is due to perfusionist. Rosendo Law MD Hospitalist IP vs OBS Justification Based on differential dx, clinical care plan, and risk of adverse events, if untreated, in my clinical judgement this patient requires an acute care setting as: INPATIENT because of an expectation ofan over 2 midnight stay. Estimated length of stay (# of days): 3 Documented By: Rosendo Law MD 03/31/24 1225 Signed By: 03/31/24 1229 [facility]11-18-2024 Radiology Diagnostic study note [facility] Main [place] [address] [place] [address] CT Scan Report Signed Patient: Aaron Lewis MR#: [id number] : 1945 Acct:[id number] Age/Sex: 79 / F ADM Date: 4 Loc: ER Room: Type: [facility] ER Attending Dr: Copies to: Jarad Vargas DO~ Ordering Provider: Jarad Vargas DO Date of Service: 03/31/24 CT/CT abdomen pelvis w con: ams lower abd/back pain ([id number]) CT/CT head/brain wo con: ams Unenhanced head [...] Emil Martin M.D.03/31/2024 10:02 AM Dictation Location: [facility]--16 Transcribed By: [facility] 03/31/24 1002 Dictated By: Emil Martin DO 03/31/24 0952 Signed By: 03/31/[address] [place], [place] 2054010-30-2024 Evaluation note* Diagnosis Onset Date Resolution Status Admit Date Chronic back pain greater th an 3 months duration acute March 12, 2024 9:43am CKD (chronic kidney disease) , stage III acute March 12 9:43am Hypertension acute February 9:43am 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 acute March 12 9:43am [facility] Work Phone: 1(399) 950-170310-30-2024 Evaluation note* Diagnosis Onset Date Resolution Status [...] virus acute March 31 2 024 12:23pm [facility] Work Phone: 1(564) 965-858010-30-2024 Evaluation note* Diagnosis Onset Date Resolution Status [...] virus acute March 31 2 024 12:23pm [facility] Work Phone: 1([phone]) 174-695410-30-2024 Evaluation note* Diagnosis Onset Date Resolution Status [...] tract infection inactive J anuary 2024 1:03pm [facility] Work Phone: 1(576) 683-898810-28-2024 Miscellaneous Notes* Telephone Encounter - [employer] - 03/10/2024 8:53 AM EDT Patient daughter called in regarding referral to Ophthalmology. Daughter states that Dr Mike Kern is too far for them, but they found another provider, Dr Meza, in [place]. She is asking if referral can be updated then faxed to that office. Patient's daughter also stated that patient was to follow up with Infectious Disease at [facility]. She is asking if we know of a provider in [place] or [facility]. * Telephone Encounter - Aga Mendoza MD - 03/10/2024 8:53 AM EDT New referral order placed to preferred ophthalmology provider. As for the infectious diseases referral, she can go wherever is closest if that is preferred. She can call [facility] and ask who they recommend. They had seen her and were supposed to schedule her appointment. So she should contact them. Thank you. * Telephone Encounter - Lisa Esparza - 03/10/2024 8:53 AM EDT I have attempted to contact this patient by phone with the following results: left message regarding Dr. Mendoza's below message. [facility] Telephone encounter Note* Telephone Encounter - [employer] - 03/10/2024 8:53 AM EDT Patient daughter called in regarding referral to Ophthalmology. Daughter states that Dr Mike Kern is too far for them, but they found another provider, Dr Meza, in [place]. She is asking if referral can be updated then faxed to that office. Patient's daughter also stated that patient was to follow up with Infectious Disease at [facility]. She is asking if we know of a provider in [place] or [facility]. [facility]10-28-2024 Telephone encounter Note* Telephone Encounter - Aga Mendoza MD - 03/10/2024 8:53 AM EDT New referral order placed to preferred ophthalmology provider. As for the infectious diseases referral, she can go wherever is closest if that is preferred. She can call [facility] and ask who they recommend. They had seen her and were supposed to schedule her appointment. So she should contact them. Thank you. [facility]10-28-2024 Telephone encounter Note* Telephone Encounter - Lisa Esparza - 03/10/2024 8:53 AM EDT I have attempted to contact this patient by phone with the following results: left message regarding Dr. Mendoza's below message. [facility]10-25-2024 Progress note* Discharge Planning Note - Gabriella Staples - 03/07/2024 3:16 PM EDT DISCHARGE PLANNING NOTE CRF to [facility] in [place], [place] (P# ; F# ) [facility]10-25-2024 Miscellaneous Notes* Discharge Planning Note - Gabriella Staples - 03/07/2024 3:16 PM EDT DISCHARGE PLANNING NOTE CRF to [facility] in [place], [place] (P# ; F# ) * Discharge Planning Note - Lisa Guzman RN - 03/07/2024 3:07 PM EDT DISCHARGE PLANNING NOTE Follow-up Discharge Planning Progress Note Per RN during discharge transition rounds, barriers to discharge are: none. Discharge Plan: Home with [facility] health care and [facility]. [facility] confirmed start of care today at 6 pm. Son Elijah updated, bedside nurse updated. [facility] tasked to send CRF to [...] Description: INTERVENTIONS: 1. Encourage patient or legal insurance claims representative to report early pain and ask [...] per policy 9. Teach patient or legal insurance claims representative interventions for comforting Outcome: Progressing Note: [...] at the bedside 7. Instruct patient/ patient insurance claims representative about use of safety devices 8. Include patient/ patient insurance claims representative in decisions related to safety Outcome: [...] hygiene technique 7. Identify and instruct patient/patient insurance claims representative in use of appropriate isolation precautionsfor identified infection/symptoms 8. Provide and discuss with patient/patient insurance claims representative on educational MDRO sheet 9. Encourage and monitor nutritional status daily and consult auto slip cover installer if indicated 10. Implement neutropenic guidelines as [...] to monitor Problem: Knowledge Deficit Goal: Patient/patient insurance claims representative demonstrates understanding of disease process, treatment [...] Score of =/> 25 or indicated by [facility] Assessment Goal: Patient should be free from fall Description: Interventions: 1. [place] to environment 2. Hourly rounds addressing the [...] non-skid footwear 11. Teach patient and patient insurance claims representative to maintain environment for safety and [...] (cane, walker) within reach 19. Request patient insurance claims representative bring adaptive equipment/mobility aids from home or obtain and provide as needed 20. Consult pharmacy regarding effects of med's affecting mobility, cognition, and alternatives 21. Obtain physician order for PT if risk factors associated with mobility are present 22. Obtain physician order for OT as appropriate 23. Utilize diversional activities 24. Educate patient and patient insurance claims representative how to maintain a safe environment during visitationtimes (notify nurse prior to leaving bedside) 25. Consider appropriateness of medical or non-medical bill processor 26. Set up voiding schedule as appropriate [...] on patient's door 9. Provide patient/ patient insurance claims representative with isolation education. Outcome: Progressing Note: Evaluation of progress towards goal: proper hand hygiene is performed when entering and exiting the room and proper PPE is worn during procedures * PT/OT/WILDLIFE REFUGE SPECIALIST - JUDI Amaya/Kosta - 03/07/2024 9:55 AM EDT Occupational Therapy Treatment Discharge Recommendations OT Recommendations : [facility] 6 Clicks: Daily Activity Putting on [...] see per RN Equipment: gait belt, RW Telemetry/Cigarette And Filter Chief Inspector: No Other: Fall risk, LBP Pain Assessment [...] Patient will perform bed mobility with Modified Elaine Dates: Start: 03/04/24 Expected End: 03/25/24 Description: [...] 0953 JUDI Amaya/Kosta Progressing 03/05/24 1602 JENNIFER Carpenter/Ksota Progressing Goal Note filed on 03/07/24 0953 [...] Principal Problem: Viral meningitis Active Problems: Seizure ([facility]) Cosigned by JENNIFER Vazquez/Kosta at 03/07/2024 2:40 PM EDT Associated attestation - Kelsi Ma OTR/L - 03/07/2024 2:40 PM EDT I have reviewed and agree with this note and education documentation for this visit. * PT/OT/WILDLIFE REFUGE SPECIALIST - Fabiola Carter PTA - 03/07/2024 9:50 AM EDT Physical Therapy Treatment Discharge Recommendations PT Recommendations: [facility] SNF/ECF Comments: Pt would benefit from [...] Equipment: Gait belt, RW, chair alarm/bed alarm Telemetry/Cigarette And Filter Chief Inspector: No Oxygen Used: room air Other: Fall [...] Date/Time User Outcome 03/07/24 0941 Fabiola Carter, JET MAN Progressing 03/05/241535 Winnie Handy PTA Progressing Goal Note filed on 03/05/241535 by Winnie Handy PTA Evaluation of progress towards goal: Problem: Bed Mobility Dates: Start: 03/04/24 Disciplines: PT Goal: Patient will perform bed mobility with Modified Elaine Dates: Start: 03/04/24 Expected End: 03/18/24 Description: Goal Description: Disciplines: PT Outcomes Date/Time User Outcome 03/07/24 0941 Fabiola Carter, JET MAN Progressing 03/05/24 153 Winnie Handy PTA Progressing Goal Note filed on 03/05/24 153 by Winnie Handy PTA Evaluation of progress towards goal: Problem: Gait Dates: Start: 03/04/24 Disciplines: PT Goal: Patient will perform gait with Modified Elaine Dates: Start: 03/04/24 Expected End: 03/18/24 Description: [...] Goal: Patient will perform transfers with Modified Elaine Dates: Start: 03/04/24 Expected End: 03/18/24 Description: [...] Principal Problem: Viral meningitis Active Problems: Seizure ([facility]) Cosigned by Gissell Friend PT at 03/07/2024 [...] Description: INTERVENTIONS: 1. Encourage patient or legal insurance claims representative to report early pain and ask [...] per policy 9. Teach patient or legal insurance claims representative interventions for comforting Outcome: Progressing Note: [...] at the bedside 7. Instruct patient/ patient insurance claims representative about use of safety devices 8. Include patient/ patient insurance claims representative in decisions related to safety Outcome: [...] hygiene technique 7. Identify and instruct patient/patient insurance claims representative in use of appropriate isolation precautionsfor identified infection/symptoms 8. Provide and discuss with patient/patient insurance claims representative on educational MDRO sheet 9. Encourage and monitor nutritional status daily and consult auto slip cover installer if indicated 10. Implement neutropenic guidelines as [...] infection prevention. Problem: Knowledge Deficit Goal: Patient/patient insurance claims representative demonstrates understanding of disease process, treatment [...] EDT DISCHARGE PLANNING NOTE Referral sent to [facility] [place], [place] [facility] - (P# ; F# ) * Plan of Care - Carolin Jerome RN - 03/06/2024 12:46 PM EDT Problem: Pain Goal: Patient goal is pain score less than 4, able to rest, and participant in treatment plan as appropriate Description: INTERVENTIONS: 1. Encourage patient or legal insurance claims representative to report early pain and ask [...] per policy 9. Teach patient or legal insurance claims representative interventions for comforting Outcome: Progressing Note: [...] at the bedside 7. Instruct patient/ patient insurance claims representative about use of safety devices 8. Include patient/ patient insurance claims representative in decisions related to safety Outcome: [...] hygiene technique 7. Identify and instruct patient/patient insurance claims representative in use of appropriate isolation precautionsfor identified infection/symptoms 8. Provide and discuss with patient/patient insurance claims representative on educational MDRO sheet 9. Encourage and monitor nutritional status daily and consult auto slip cover installer if indicated 10. Implement neutropenic guidelines as needed 11. Review exposure to history of communicable disease and recent travel history on admission 12. Encourage annual influenza vaccine 13. Encourage pneumonia vaccine Outcome: Progressing Note: Evaluation of progress towards goal: Pt afebrile, vss, will continue to monitor during shift. Problem: Knowledge Deficit Goal: Patient/patient insurance claims representative demonstrates understanding of disease process, treatment [...] Score of =/> 25 or indicated by [facility] Assessment Goal: Patient should be free from fall Description: Interventions: 1. [place] to environment 2. Hourly rounds addressing the [...] non-skid footwear 11. Teach patient and patient insurance claims representative to maintain environment for safety and [...] (cane, walker) within reach 19. Request patient insurance claims representative bring adaptive equipment/mobility aids from home or obtain and provide as needed 20. Consult pharmacy regarding effects of med's affecting mobility, cognition, and alternatives 21. Obtain physician order for PT if risk factors associated with mobility are present 22. Obtain physician order for OT as appropriate 23. Utilize diversional activities 24. Educate patient and patient insurance claims representative how to maintain a safe environment during visitationtimes (notify nurse prior to leaving bedside) 25. Consider appropriateness of medical or non-medical bill processor 26. Set up voiding schedule as appropriate [...] infusion forIV antibiotics at home. Discharge Plan: [facility] can clinically accept, verifying patient benefits. Tentative plan. Patient will discharge tomorrow, with plan for her second dose- Around 5pm or so parmjit started at home. Son available to pick her up after 4 tomorrow and plan for him and sister to meet with home care for teaching. Await [facility] on verification and time frame for IV antibiotics to be delivered. Prescription and lab orders faxed to [facility]. Care Navigation will continue to follow for any discharge needs. - Lisa Guzman RN 03/06/24 11:17 AM * Discharge Planning Note - Neli Rosa - 03/06/2024 8:38 AM EDT DISCHARGE PLANNING NOTE Referral sent to [facility] [place], [place] (P# [phone] ; F# [phone]) * Plan of Care - Tashia Redding RN - 03/05/2024 10:27 PM EDT Problem: Pain Goal: Patient goal is pain score less than 4, able to rest, and participant in treatment plan as appropriate Description: INTERVENTIONS: 1. Encourage patient or legal insurance claims representative to report early pain and ask [...] per policy 9. Teach patient or legal insurance claims representative interventions for comforting Outcome: Progressing Note: [...] at the bedside 7. Instruct patient/ patient insurance claims representative about use of safety devices 8. Include patient/ patient insurance claims representative in decisions related to safety Outcome: [...] hygiene technique 7. Identify and instruct patient/patient insurance claims representative in use of appropriate isolation precautionsfor identified infection/symptoms 8. Provide and discuss with patient/patient insurance claims representative on educational MDRO sheet 9. Encourage and monitor nutritional status daily and consult auto slip cover installer if indicated 10. Implement neutropenic guidelines as [...] questions answered. Problem: Knowledge Deficit Goal: Patient/patient insurance claims representative demonstrates understanding of disease process, treatment [...] be free from fall Description: Interventions: 1. [place] to environment 2. Hourly rounds addressing the [...] non-skid footwear 11. Teach patient and patient insurance claims representative to maintain environment for safety and [...] (cane, walker) within reach 19. Request patient insurance claims representative bring adaptive equipment/mobility aids from home or obtain and provide as needed 20. Consult pharmacy regarding effects of med's affecting mobility, cognition, and alternatives 21. Obtain physician order for PT if risk factors associated with mobility are present 22. Obtain physician order for OT as appropriate 23. Utilize diversional activities 24. Educate patient and patient insurance claims representative how to maintain a safe environment during visitationtimes (notify nurse prior to leaving bedside) 25. Consider appropriateness of medical or non-medical bill processor 26. Set up voiding schedule as appropriate (every 2 hours) Outcome: Progressing Note: Evaluation of progress towards goal: Pt. Remains fall free this hospitalization. Safety precautions maintained. * PT/OT/WILDLIFE REFUGE SPECIALIST - JENNIFER Carpenter/Kosta - 03/05/2024 4:03 PM EDT Occupational Therapy Treatment Discharge Recommendations OT Recommendations : [facility] 6 Clicks: Daily Activity Putting on [...] Equipment: Gait belt, RW, chair alarm/bed alarm Telemetry/Cigarette And Filter Chief Inspector: No Oxygen Used: Room air Other: Fall [...] Patient will perform bed mobility with Modified Elaine Dates: Start: 03/04/24 Expected End: 03/25/24 Description: [...] Principal Problem: Viral meningitis Active Problems: Seizure ([facility]) * PT/OT/WILDLIFE REFUGE SPECIALIST - Winnie Handy, JET MAN - 03/05/2024 3:57 PM EDT Physical Therapy Treatment Discharge Recommendations PT Recommendations: [facility] 6 Clicks: Basic Mobility Turning from [...] Patient will perform bed mobility with Modified Elaine Dates: Start: 03/04/24 Expected End: 03/18/24 Description: Goal Description: Disciplines: PT Outcomes Date/Time User Outcome 03/05/241535 Winnie Handy PTA Progressing Goal Note filed on 03/05/24 153 by Winnie Handy PTA Evaluation of progress towards goal: Problem: Gait Dates: Start: 03/04/24 Disciplines: PT Goal: Patient will perform gait with Modified Elaine Dates: Start: 03/04/24 Expected End: 03/18/24 Description: [...] Goal: Patient will perform transfers with Modified Elaine Dates: Start: 03/04/24 Expected End: 03/18/24 Description: Goal Description:Patient to perform mobility with good safety awareness. Disciplines: PT Outcomes Date/Time User Outcome 03/05/241535 Winnie Handy PTA Progressing Goal Note filed on 03/05/241535 by Winnie Handy PTA Evaluation of progress towards goal: Physical Therapy Care Plan (Resolved) There are no resolved problems. Principal Problem: Viral meningitis Active Problems: Seizure ([facility]) Cosigned by Gissell Friend PT at 03/06/2024 [...] Description: INTERVENTIONS: 1. Encourage patient or legal insurance claims representative to report early pain and ask [...] per policy 9. Teach patient or legal insurance claims representative interventions for comforting Outcome: Progressing Note: [...] at the bedside 7. Instruct patient/ patient insurance claims representative about use of safety devices 8. Include patient/ patient insurance claims representative in decisions related to safety Outcome: [...] hygiene technique 7. Identify and instruct patient/patient insurance claims representative in use of appropriate isolation precautionsfor identified infection/symptoms 8. Provide and discuss with patient/patient insurance claims representative on educational MDRO sheet 9. Encourage and monitor nutritional status daily and consult auto slip cover installer if indicated 10. Implement neutropenic guidelines as [...] to monitor Problem: Knowledge Deficit Goal: Patient/patient insurance claims representative demonstrates understanding of disease process, treatment [...] be free from fall Description: Interventions: 1. [place] to environment 2. Hourly rounds addressing the [...] non-skid footwear 11. Teach patient and patient insurance claims representative to maintain environment for safety and [...] (cane, walker) within reach 19. Request patient insurance claims representative bring adaptive equipment/mobility aids from home or obtain and provide as needed 20. Consult pharmacy regarding effects of med's affecting mobility, cognition, and alternatives 21. Obtain physician order for PT if risk factors associated with mobility are present 22. Obtain physician order for OT as appropriate 23. Utilize diversional activities 24. Educate patient and patient insurance claims representative how to maintain a safe environment during visitationtimes (notify nurse prior to leaving bedside) 25. Consider appropriateness of medical or non-medical bill processor 26. Set up voiding schedule as appropriate [...] on patient's door 9. Provide patient/ patient insurance claims representative with isolation education. Outcome: Progressing Note: Evaluation of progress towards goal: patient currently on IV antibiotics for positive LP result * Plan of Care - Tashia Redding RN - 03/04/2024 11:33 PM EDT Problem: Pain Goal: Patient goal is pain score less than 4, able to rest, and participant in treatment plan as appropriate Description: INTERVENTIONS: 1. Encourage patient or legal insurance claims representative to report early pain and ask [...] per policy 9. Teach patient or legal insurance claims representative interventions for comforting Outcome: Progressing Note: [...] at the bedside 7. Instruct patient/ patient insurance claims representative about use of safety devices 8. Include patient/ patient insurance claims representative in decisions related to safety Outcome: Progressing Note: Evaluation of progress towards goal: Pt. Remains injury free this hospitalization, safety precautions maintained. Problem: Moderate - High Risk Fall Score Description: [place] Fall Score of =/> 25 or indicated by [facility] Assessment Goal: Patient should be free from fall Description: Interventions: 1. [place] to environment 2. Hourly rounds addressing the [...] non-skid footwear 11. Teach patient and patient insurance claims representative to maintain environment for safety and [...] (cane, walker) within reach 19. Request patient insurance claims representative bring adaptive equipment/mobility aids from home or obtain and provide as needed 20. Consult pharmacy regarding effects of med's affecting mobility, cognition, and alternatives 21. Obtain physician order for PT if risk factors associated with mobility are present 22. Obtain physician order for OT as appropriate 23. Utilize diversional activities 24. Educate patient and patient insurance claims representative how to maintain a safe environment during visitationtimes (notify nurse prior to leaving bedside) 25. Consider appropriateness of medical or non-medical bill processor 26. Set up voiding schedule as appropriate (every 2 hours) Outcome: Progressing Note: Evaluation of progress towards goal: Pt. Remains fall free this hospitalization. Safety precautions maintained. * Discharge Planning Note - Danyelle Frye - 03/04/2024 4:53 PM EDT DISCHARGE PLANNING NOTE Referral sent to. [facility] in [place], [place] (P# ; F# ) * Discharge Planning Note - Lisa Guzman RN - 03/04/2024 4:20 PM EDT DISCHARGE PLANNING NOTE Follow-up Discharge Planning Progress Note Per RN during discharge transition rounds, barriers to discharge are: Hypertensive today, CXR, cultures pending. Discharge Plan: Home with home care. Therapy recommending [facility]. Patient declined. Patient agree to home care. [facility]. Warehouse Receiver informed will have referral sent, however need two additional choices. Will follow up tomorrow for additional choices. Care Navigation will continue to follow for any discharge needs. - Lisa Guzman RN 03/04/24 4:26 PM * PT/OT/WILDLIFE REFUGE SPECIALIST - ROXANNE Raymundo - 03/04/2024 1:18 PM EDT Occupational Therapy Evaluation Discharge Recommendations OT Recommendations : [facility] SNF/ECF Comments: SNF recommended to improve [...] for OOB activity. Equipment: RW, gait belt Telemetry/Cigarette And Filter Chief Inspector: No Oxygen Used: room air Other: Fall [...] Rolling walker Other : Pt using RW JET MAN Prior Function Lives With: Alone Receives Help [...] Patient will perform bed mobility with Modified Elaine Dates: Start: 03/04/24 Expected End: 03/25/24 Description: [...] Principal Problem: Viral meningitis Active Problems: Seizure ([facility]) * PT/OT/WILDLIFE REFUGE SPECIALIST - Nicholas Lang, PT - 03/04/2024 1:01 PM EDT Physical Therapy Evaluation Discharge Recommendations PT Recommendations: [facility] SNF/ECF Comments: Pt would benefit from [...] for OOB activity. Equipment: RW, gait belt Telemetry/Cigarette And Filter Chief Inspector: No Oxygen Used: room air Other: Fall [...] Patient will perform bed mobility with Modified Elaine Dates: Start: 03/04/24 Expected End: 03/18/24 Description: Goal Description: Disciplines: PT Problem: Gait Dates: Start: 03/04/24 Disciplines: PT Goal: Patient will perform gait with Modified Elaine Dates: Start: 03/04/24 Expected End: 03/18/24 Description: [...] Goal: Patient will perform transfers with Modified Elaine Dates: Start: 03/04/24 Expected End: 03/18/24 Description: Goal Description:Patient to perform mobility with good safety awareness. Disciplines: PT Physical Therapy Care Plan (Resolved) There are no resolved problems. Principal Problem: Viral meningitis Active Problems: Seizure ([facility]) * Perioperative Nursing Note - Marlee Gallegos RN - 03/04/2024 9:49 AM EDT Report called to floor RN. * Perioperative Nursing Note - Marlee Gallegos RN - 03/04/2024 9:45 AM EDT Pt received Post-Op, POC discussed. * PT/OT/WILDLIFE REFUGE SPECIALIST - Nicholas Lang PT - 03/04/2024 9:03 AM EDT Physical Therapy CANCEL - Deferred (Pt undergoing LP in IR at this time) * Perioperative Nursing Note - Marlee Gallegos RN - 03/04/2024 8:31 AM EDT Recieved to IVRR, POC discussed. * PT/OT/WILDLIFE REFUGE SPECIALIST - ROXANNE Raymundo - 03/04/2024 8:05 AM EDT Occupational Therapy (P) CANCEL - Deferred (Pt going down for LP by IR) * Plan of Care - Tiffanie Smith RN - 03/04/2024 7:47 AM EDT Problem: Pain Goal: Patient goal is pain score less than 4, able to rest, and participant in treatment plan as appropriate Description: INTERVENTIONS: 1. Encourage patient or legal insurance claims representative to report early pain and ask [...] per policy 9. Teach patient or legal insurance claims representative interventions for comforting Outcome: Progressing Note: Evaluation of progress towards goal: Warehouse Receiver assessed pt pain in the beginning and throughout shift. Pt stated a tolerable pain goal was zero. Warehouse Receiver medicated pt pain per order. Will continue [...] at the bedside 7. Instruct patient/ patient insurance claims representative about use of safety devices 8. Include patient/ patient insurance claims representative in decisions related to safety Outcome: [...] hygiene technique 7. Identify and instruct patient/patient insurance claims representative in use of appropriate isolation precautionsfor identified infection/symptoms 8. Provide and discuss with patient/patient insurance claims representative on educational MDRO sheet 9. Encourage and monitor nutritional status daily and consult auto slip cover installer if indicated 10. Implement neutropenic guidelines as needed 11. Review exposure to history of communicable disease and recent travel history on admission 12. Encourage annual influenza vaccine 13. Encourage pneumonia vaccine Outcome: Progressing Note: Evaluation of progress towards goal: Warehouse Receiver assessed pt risk for infection in the beginning and throughout shift. Pt remains afebrile. Will continue to monitor. Problem: Knowledge Deficit Goal: Patient/patient insurance claims representative demonstrates understanding of disease process, treatment plan,medications, and discharge instructions Description: INTERVENTIONS 1. Complete learning assessment and assess knowledge base 2. Provide teaching at level of understanding 3. Provide teaching via preferred learning method(s) Outcome: Progressing Note: Evaluation of progress towards goal: Warehouse Receiver educated pt on admission disease, medications, treatment, and discharge planning. Will continue to monitor. Problem: Moderate - High Risk Fall Score Description: [place] Fall Score of =/> 25 or indicated by [facility] Assessment Goal: Patient should be free from fall Description: Interventions: 1. [place] to environment 2. Hourly rounds addressing the [...] non-skid footwear 11. Teach patient and patient insurance claims representative to maintain environment for safety and [...] (cane, walker) within reach 19. Request patient insurance claims representative bring adaptive equipment/mobility aids from home or obtain and provide as needed 20. Consult pharmacy regarding effects of med's affecting mobility, cognition, and alternatives 21. Obtain physician order for PT if risk factors associated with mobility are present 22. Obtain physician order for OT as appropriate 23. Utilize diversional activities 24. Educate patient and patient insurance claims representative how to maintain a safe environment during visitationtimes (notify nurse prior to leaving bedside) 25. Consider appropriateness of medical or non-medical bill processor 26. Set up voiding schedule as appropriate (every 2 hours) Outcome: Progressing Note: Evaluation of progress towards goal: Warehouse Receiver assessed pt fall precautions in the beginning [...] at the bedside 7. Instruct patient/ patient insurance claims representative about use of safety devices 8. Include patient/ patient insurance claims representative in decisions related to safety Outcome: [...] hygiene technique 7. Identify and instruct patient/patient insurance claims representative in use of appropriate isolation precautionsfor identified infection/symptoms 8. Provide and discuss with patient/patient insurance claims representative on educational MDRO sheet 9. Encourage and monitor nutritional status daily and consult auto slip cover installer if indicated 10. Implement neutropenic guidelines as [...] Description: INTERVENTIONS: 1. Encourage patient or legal insurance claims representative to report early pain and ask [...] per policy 9. Teach patient or legal insurance claims representative interventions for comforting Note: Evaluation of [...] Description: INTERVENTIONS: 1. Encourage patient or legal insurance claims representative to report early pain and ask [...] per policy 9. Teach patient or legal insurance claims representative interventions for comforting Outcome: Progressing Note: Evaluation of progress towards goal: Encourage patient or legal insurance claims representative to report early pain and ask [...] at the bedside 7. Instruct patient/ patient insurance claims representative about use of safety devices 8. Include patient/ patient insurance claims representative in decisions related to safety Outcome: [...] hygiene technique 7. Identify and instruct patient/patient insurance claims representative in use of appropriate isolation precautionsfor identified infection/symptoms 8. Provide and discuss with patient/patient insurance claims representative on educational MDRO sheet 9. Encourage and monitor nutritional status daily and consult auto slip cover installer if indicated 10. Implement neutropenic guidelines as [...] and monitor nutritional status daily and consult auto slip cover installer if indicated. Encourage annual influenza vaccine and [...] to perform ADLs. 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 Her son will transport home at discharge. Her PCP is Dr. Jeremiah Reed,will add to Bus[facility]. She denies any financial restraints to meeting [...] Description: INTERVENTIONS: 1. Encourage patient or legal insurance claims representative to report early pain and ask [...] per policy 9. Teach patient or legal insurance claims representative interventions for comforting Outcome: Progressing Note: [...] at the bedside 7. Instruct patient/ patient insurance claims representative about use of safety devices 8. Include patient/ patient insurance claims representative in decisions related to safety Outcome: [...] hygiene technique 7. Identify and instruct patient/patient insurance claims representative in use of appropriate isolation precautionsfor identified infection/symptoms 8. Provide and discuss with patient/patient insurance claims representative on educational MDRO sheet 9. Encourage and monitor nutritional status daily and consult auto slip cover installer if indicated 10. Implement neutropenic guidelines as [...] to monitor Problem: Knowledge Deficit Goal: Patient/patient insurance claims representative demonstrates understanding of disease process, treatment [...] Score of =/> 25 or indicated by [facility] Assessment Goal: Patient should be free from fall Description: Interventions: 1. [place] to environment 2. Hourly rounds addressing the [...] non-skid footwear 11. Teach patient and patient insurance claims representative to maintain environment for safety and [...] (cane, walker) within reach 19. Request patient insurance claims representative bring adaptive equipment/mobility aids from home or obtain and provide as needed 20. Consult pharmacy regarding effects of med's affecting mobility, cognition, and alternatives 21. Obtain physician order for PT if risk factors associated with mobility are present 22. Obtain physician order for OT as appropriate 23. Utilize diversional activities 24. Educate patient and patient insurance claims representative how to maintain a safe environment during visitationtimes (notify nurse prior to leaving bedside) 25. Consider appropriateness of medical or non-medical bill processor 26. Set up voiding schedule as appropriate [...] Description: INTERVENTIONS: 1. Encourage patient or legal insurance claims representative to report early pain and ask [...] per policy 9. Teach patient or legal insurance claims representative interventions for comforting Outcome: Progressing Note: Evaluation of progress towards goal: Warehouse Receiver assessed pt pain in the beginning and throughout shift. Pt stated a tolerable pain goal was zero. Warehouse Receiver medicated pt pain per order. Will continue [...] at the bedside 7. Instruct patient/ patient insurance claims representative about use of safety devices 8. Include patient/ patient insurance claims representative in decisions related to safety Outcome: [...] hygiene technique 7. Identify and instruct patient/patient insurance claims representative in use of appropriate isolation precautionsfor identified infection/symptoms 8. Provide and discuss with patient/patient insurance claims representative on educational MDRO sheet 9. Encourage and monitor nutritional status daily and consult auto slip cover installer if indicated 10. Implement neutropenic guidelines as [...] of infection. Problem: Knowledge Deficit Goal: Patient/patient insurance claims representative demonstrates understanding of disease process, treatment [...] Score of =/> 25 or indicated by [facility] Assessment Goal: Patient should be free from fall Description: Interventions: 1. [place] to environment 2. Hourly rounds addressing the [...] non-skid footwear 11. Teach patient and patient insurance claims representative to maintain environment for safety and [...] (cane, walker) within reach 19. Request patient insurance claims representative bring adaptive equipment/mobility aids from home or obtain and provide as needed 20. Consult pharmacy regarding effects of med's affecting mobility, cognition, and alternatives 21. Obtain physician order for PT if risk factors associated with mobility are present 22. Obtain physician order for OT as appropriate 23. Utilize diversional activities 24. Educate patient and patient insurance claims representative how to maintain a safe environment during visitationtimes (notify nurse prior to leaving bedside) 25. Consider appropriateness of medical or non-medical bill processor 26. Set up voiding schedule as appropriate [...] Description: INTERVENTIONS: 1. Encourage patient or legal insurance claims representative to report early pain and ask [...] per policy 9. Teach patient or legal insurance claims representative interventions for comforting Outcome: Progressing Note: [...] at the bedside 7. Instruct patient/ patient insurance claims representative about use of safety devices 8. Include patient/ patient insurance claims representative in decisions related to safety Outcome: [...] hygiene technique 7. Identify and instruct patient/patient insurance claims representative in use of appropriate isolation precautionsfor identified infection/symptoms 8. Provide and discuss with patient/patient insurance claims representative on educational MDRO sheet 9. Encourage and monitor nutritional status daily and consult auto slip cover installer if indicated 10. Implement neutropenic guidelines as needed 11. Review exposure to history of communicable disease and recent travel history on admission 12. Encourage annual influenza vaccine 13. Encourage pneumonia vaccine Note: Evaluation of progress towards goal: Patient has remained afebrile. WBC and vital signs monitored. Patient has not shown any additional signs of infection at this time. [facility]* Discharge Planning Note - Lisa Guzman RN - 03/07/2024 3:07 PM EDT DISCHARGE PLANNING NOTE Follow-up Discharge Planning Progress Note Per RN during discharge transition rounds, barriers to discharge are: none. Discharge Plan: Home with [facility] care and [facility]. [facility] confirmed start of care today at 6 pm. Son Elijah updated, bedside nurse updated. [facility] tasked to send CRF to home care agency. Care Navigation will continue to follow for any discharge needs. - Lisa Guzman RN 03/07/24 3:09 PM \ [employer] [id number] History of Present illness Narrative* Stuart Wade MD - 03/07/2024 12:12 PM EDT Images from the original note were not included. Division of Infectious Diseases - Progress Note [facility] - Academic Team 2 During Business Hours: Please use WIDIP for communication. After Hours: Please call for [...] Spinal Fluid culture includes gram stain, CSF [[id number]] Collected: 03/04/24 0930 Specimen: Cerebrospinal Fluid Updated: [...] with questions. Stuart Wade MD, MPH, FACP, [facility] From 7AM-7PM: From 7AM-7PM: Please use WIDIP for communication. From 7PM-7AM: Please call for our answering service. * Stuart Wade MD - 03/06/2024 1:35 PM EDT Images from the original note were not included. Division of Infectious Diseases - Progress Note [facility] - Academic Team 2 During Business Hours: Please use WIDIP for communication. After Hours: Please call for [...] Spinal Fluid culture includes gram stain, CSF [[id number]] Collected: 03/04/24929 Specimen: Cerebrospinal Fluid Updated: 03/06/24745 [...] FIDSA From 7AM-7PM: From 7AM-7PM: Please use WIDIP for communication. From 7PM-7AM: Please call for our answering service. * Aga Mendoza MD - 03/06/2024 7:21 AM EDT Images from the original note were not included. [facility] Neurology General Neurology Primary Progress Note Primary Neurology service: [phone] Chief Complaint: confusion Interval History: Aaron Lewis [...] Full Aga Mendoza MD PGY-3 Neurology Resident [facility] 03/06/24 Staffed with: (Dr. Monteiro) This patient is being followed by the Neurology Resident service. Contact attending directly during these hours: Sunday to 7:30-8:30 A.M. to Sunday 12-1:00 p.m. Primary Neurology service: [phone] Consult neurology service: [phone] Resident Stroke Service: [phone] If the patient belongs to the Stroke ESIVN service please contact the Stroke ESVIN directly. [...] Team 2 During Business Hours: Please use WIDIP for communication. After Hours: Please call for [...] Spinal Fluid culture includes gram stain, CSF [[id number]] Collected: 03/04/24929 Specimen: Cerebrospinal Fluid Updated: 03/05/24804 [...] FIDSA From 7AM-7PM: From 7AM-7PM: Please use WIDIP for communication. From 7PM-7AM: Please call for our answering service. * Aga Mendoza MD - 03/05/2024 7:53 AM EDT Images from the original note were not included. [employer] Neurology General Neurology Primary Progress Note Primary Neurology service: [phone] Chief Complaint: confusion Interval History: Aaron Lewis [...] Full Aga Mendoza MD PGY-3 Neurology Resident [facility] 03/05/24 Staffed with: (Dr. Monteiro) This patient is being followed by the Neurology Resident service. Contact attending directly during these hours: Sunday to 7:30-8:30 A.M. to Sunday 12-1:00 p.m. Primary Neurology service: [phone] Consult neurology service: [phone] Resident Stroke Service: [phone] If the patient belongs to the Stroke [...] from the original note were not included. [facility] Neurology General Neurology Primary Progress Note Primary Neurology service: [phone] Chief Complaint: confusion Interval History: Aaron Lewis [...] Full Aga Mendoza MD PGY-3 Neurology Resident [facility] 03/04/24 Staffed with: (Dr. Monteiro) This patient is being followed by the Neurology Resident service. Contact attending directly during these hours: Sunday to 7:30-8:30 A.M. to Sunday 12-1:00 p.m. Primary Neurology service: [phone] Consult neurology service: [phone] Resident Stroke Service: [phone] If the patient belongs to the Stroke [...] from the original note were not included. [facility] Neurology General Neurology Primary Progress Note Primary Neurology service: [phone] Chief Complaint: confusion Interval History: Aaron J [...] light touch throughout. Cerebellar: Able to do [id number]-[id number] bilaterally; normal coordination Gait and station: Deferred, [...] Full Aga Mendoza MD PGY-3 Neurology Resident [facility] 03/03/24 Staffed with: (Dr. Monteiro) This patient is being followed by the Neurology Resident service. Contact attending directly during these hours: Sunday to 7:30-8:30 A.M. to Sunday 12-1:00 p.m. Primary Neurology service: [phone] Consult neurology service: [phone] Resident Stroke Service: [phone] If the patient belongs to the Stroke [...] Renay Monteiro MD, PhD * Anna Baldwin, [facility] - 03/02/2024 4:23 AM EDT [facility] Department of Pharmacy Pharmacist to Physician Communication The dose of acyclovir for HSV/VZV infection of PHARMACOVIGILANCE SPECIALIST has been changed to 10 mg/kg every 12 hours per the [facility] approved renal dosing guidelines, based on an estimated creatinine clearance is 29.2 mL/min (A) (by C-G formula based on SCr of 1.45 mg/dL (H)). Thank you, Anna Baldwin RPH documented in [facility] Hospital course Narrative* Aga Mendoza MD - 03/07/2024 12:08 PM EDT Inpatient Discharge Summary BRIEF OVERVIEW Admitting Provider: Renay Monteiro MD Discharge Provider: Renay Monteiro MD Primary Care Physician at Discharge: JEREMIAH REED MD [phone] Admission Date: 03/02/2024 Discharge Date: 03/07/24 Primary [...] Medications These medications were sent to [id number] - [place], [place] - [address], [facility] [address] heparin lock flush (porcine) 10 unit/mL injection heparin lock flush (porcine) injection 100 unit/mL solution sodium chloride injection You can get these medications from any pharmacy Bring a paper prescription for each of these medications acyclovir 50 mg/mL injection Aga Mendoza MD PGY-3 Neurology Resident [facility] Cosigned by Renay Monteiro MD at [...] Renay Monteiro MD, PhD documented in this [facility] Plan of care note * Plan of Care - Gayla Mcwilliams RN - 03/07/2024 11:17 AM EDT Problem: Pain Goal: Patient goal is pain score less than 4, able to rest, and participant in treatment plan as appropriate Description: INTERVENTIONS: 1. Encourage patient or legal insurance claims representative to report early pain and ask [...] per policy 9. Teach patient or legal insurance claims representative interventions for comforting Outcome: Progressing Note: [...] at the bedside 7. Instruct patient/ patient insurance claims representative about use of safety devices 8. Include patient/ patient insurance claims representative in decisions related to safety Outcome: [...] hygiene technique 7. Identify and instruct patient/patient insurance claims representative in use of appropriate isolation precautionsfor identified infection/symptoms 8. Provide and discuss with patient/patient insurance claims representative on educational MDRO sheet 9. Encourage and monitor nutritional status daily and consult auto slip cover installer if indicated 10. Implement neutropenic guidelines as [...] to monitor Problem: Knowledge Deficit Goal: Patient/patient insurance claims representative demonstrates understanding of disease process, treatment [...] be free from fall Description: Interventions: 1. [place] to environment 2. Hourly rounds addressing the [...] non-skid footwear 11. Teach patient and patient insurance claims representative to maintain environment for safety and [...] (cane, walker) within reach 19. Request patient insurance claims representative bring adaptive equipment/mobility aids from home or obtain and provide as needed 20. Consult pharmacy regarding effects of med's affecting mobility, cognition, and alternatives 21. Obtain physician order for PT if risk factors associated with mobility are present 22. Obtain physician order for OT as appropriate 23. Utilize diversional activities 24. Educate patient and patient insurance claims representative how to maintain a safe environment during visitationtimes (notify nurse prior to leaving bedside) 25. Consider appropriateness of medical or non-medical bill processor 26. Set up voiding schedule as appropriate [...] on patient's door 9. Provide patient/ patient insurance claims representative with isolation education. Outcome: Progressing Note: Evaluation of progress towards goal: proper hand hygiene is performed when entering and exiting the room and proper PPE is worn during procedures [facility] 1Lay10-25-2024 Progress note* PT/OT/WILDLIFE REFUGE SPECIALIST - JUDI Amaya/Kosta Avitia 03/07/2024 9:55 AM EDT Occupational Therapy Treatment Discharge Recommendations OT Recommendations : [facility] 6 Clicks: Daily Activity Putting on [...] see per RN Equipment: gait belt, RW Telemetry/Cigarette And Filter Chief Inspector: No Other: Fall risk, LBP Pain Assessment [...] Patient will perform bed mobility with Modified Elaine Dates: Start: 03/04/24 Expected End: 03/25/24 Description: [...] Principal Problem: Viral meningitis Active Problems: Seizure ([facility]) Cosigned by ROXANNE Vazquez at 03/07/2024 2:40 PM EDT Associated attestation - Kelsi Ma OTR/L - 03/07/2024 2:40 PM EDT I have reviewed and agree with this note and education documentation for this visit. [facility] Progress note* PT/OT/WILDLIFE REFUGE SPECIALIST - Fabiola Carter PTA - 03/07/2024 9:50 AM EDT Physical Therapy Treatment Discharge Recommendations PT Recommendations: [facility] SN[facility]F Comments: Pt would benefit from [...] Equipment: Gait belt, RW, chair alarm/bed alarm Telemetry/Cigarette And Filter Chief Inspector: No Oxygen Used: room air Other: Fall [...] Date/Time User Outcome 03/07/24 0941 Fabiola Carter, JET MAN Progressing 03/05/24 1536 Winnie Handy PTA Progressing Goal Note filed on 03/05/24 153 by Winnie Handy PTA Evaluation of progress towards goal: Problem: Bed Mobility Dates: Start: 03/04/24 Disciplines: PT Goal: Patient will perform bed mobility with Modified Elaine Dates: Start: 03/04/24 Expected End: 03/18/24 Description: Goal Description: Disciplines: PT Outcomes Date/Time User Outcome 03/07/24 0941 Fabiola Carter JET MAN Progressing 03/05/24 1536 Winnie Handy PTA Progressing Goal Note filed on 03/05/24 153 by Winnie Handy PTA Evaluation of progress towards goal: Problem: Gait Dates: Start: 03/04/24 Disciplines: PT Goal: Patient will perform gait with Modified Elaine Dates: Start: 03/04/24 Expected End: 03/18/24 Description: With__RW__,__>50__feet Goal Description: Disciplines: PT Outcomes Date/Time User Outcome 03/07/24 0941 Fabiola Carter JET MAN Progressing 03/05/24 1536 Winnie Handy PTA Progressing Goal Note filed on 03/05/24 153 by Winnie Handy PTA Evaluation of progress towards goal: Problem: Sitting Balance Dates: Start: 03/04/24 Disciplines: PT Goal: Improve balance to good Dates: Start: 03/04/24 Expected End: 03/18/24 Description: Static Dynamic Disciplines: PT Outcomes Date/Time User Outcome 03/07/24 0941 Fabiola Carter JET MAN Progressing 03/05/24 153 Winnie Handy PTA Progressing Goal Note filed on 03/05/24 153 by Winnie Handy PTA Evaluation of progress towards goal: Problem: Standing Balance Dates: Start: 03/04/24 Disciplines: PT Goal: Improve balance to good Dates: Start: 03/04/24 Expected End: 03/18/24 Description: With bilat UE support Disciplines: PT Outcomes Date/Time User Outcome 03/07/24 0941 Fabiola Carter JET MAN Progressing 03/05/24 153 Winnie Handy PTA Progressing [...] Goal: Patient will perform transfers with Modified Elaine Dates: Start: 03/04/24 Expected End: 03/18/24 Description: [...] Principal Problem: Viral meningitis Active Problems: Seizure ([facility]) Cosigned by Gissell Friend PT at 03/07/2024 11:28 AM EDT Associated attestation - Gissell Friend PT - 03/07/2024 11:28 AM EDT I have reviewed and agree with this note and education documentation for this visit. [facility] Plan of care note* Plan of Care - Fannie Rooney RN - 03/07/2024 3:23 AM EDT Problem: Pain Goal: Patient goal is pain score less than 4, able to rest, and participant in treatment plan as appropriate Description: INTERVENTIONS: 1. Encourage patient or legal insurance claims representative to report early pain and ask [...] per policy 9. Teach patient or legal insurance claims representative interventions for comforting Outcome: Progressing Note: [...] at the bedside 7. Instruct patient/ patient insurance claims representative about use of safety devices 8. Include patient/ patient insurance claims representative in decisions related to safety Outcome: [...] hygiene technique 7. Identify and instruct patient/patient insurance claims representative in use of appropriate isolation precautionsfor identified infection/symptoms 8. Provide and discuss with patient/patient insurance claims representative on educational MDRO sheet 9. Encourage and monitor nutritional status daily and consult auto slip cover installer if indicated 10. Implement neutropenic guidelines as [...] infection prevention. Problem: Knowledge Deficit Goal: Patient/patient insurance claims representative demonstrates understanding of disease process, treatment [...] with home health care for antibiotic infusions. 1Lay10-24-2024 Progress note* Discharge Planning Note - Radha Mejias - 03/06/2024 3:52 PM EDT DISCHARGE PLANNING NOTE Referral sent to [facility] [place], [place] [facility] - (P# ; F# ) 1Lay10-24-2024 Plan of care note* Plan of Care - Carolin Jerome RN - 03/06/2024 12:46 PM EDT Problem: Pain Goal: Patient goal is pain score less than 4, able to rest, and participant in treatment plan as appropriate Description: INTERVENTIONS: 1. Encourage patient or legal insurance claims representative to report early pain and ask [...] per policy 9. Teach patient or legal insurance claims representative interventions for comforting Outcome: Progressing Note: [...] at the bedside 7. Instruct patient/ patient insurance claims representative about use of safety devices 8. Include patient/ patient insurance claims representative in decisions related to safety Outcome: [...] hygiene technique 7. Identify and instruct patient/patient insurance claims representative in use of appropriate isolation precautionsfor identified infection/symptoms 8. Provide and discuss with patient/patient insurance claims representative on educational MDRO sheet 9. Encourage and monitor nutritional status daily and consult auto slip cover installer if indicated 10. Implement neutropenic guidelines as needed 11. Review exposure to history of communicable disease and recent travel history on admission 12. Encourage annual influenza vaccine 13. Encourage pneumonia vaccine Outcome: Progressing Note: Evaluation of progress towards goal: Pt afebrile, vss, will continue to monitor during shift. Problem: Knowledge Deficit Goal: Patient/patient insurance claims representative demonstrates understanding of disease process, treatment [...] be free from fall Description: Interventions: 1. [place] to environment 2. Hourly rounds addressing the [...] non-skid footwear 11. Teach patient and patient insurance claims representative to maintain environment for safety and [...] (cane, walker) within reach 19. Request patient insurance claims representative bring adaptive equipment/mobility aids from home or obtain and provide as needed 20. Consult pharmacy regarding effects of med's affecting mobility, cognition, and alternatives 21. Obtain physician order for PT if risk factors associated with mobility are present 22. Obtain physician order for OT as appropriate 23. Utilize diversional activities 24. Educate patient and patient insurance claims representative how to maintain a safe environment during visitationtimes (notify nurse prior to leaving bedside) 25. Consider appropriateness of medical or non-medical bill processor 26. Set up voiding schedule as appropriate [...] progress towards goal: output monitored during shift. [facility] Progress [facility]* Discharge Planning Note - Lisa Guzman RN - 03/06/2024 11:10 AM EDT DISCHARGE PLANNING NOTE Follow-up Discharge Planning Progress Note Per RN during discharge transition rounds, barriers to discharge are: Home care and IV infusion forIV antibiotics at home. Discharge Plan: [facility] can clinically accept, verifying patient benefits. Tentative plan. Patient will discharge tomorrow, with plan for her second dose- Around 5pm or so parmjit started at home. Son available to pick her up after 4 tomorrow and plan for him and sister to meet with home care for teaching. Await [facility] on verification and time frame for IV antibiotics to be delivered. Prescription and lab orders faxed to [facility]. Care Navigation will continue to follow for any discharge needs. - Lisa Guzman RN 03/06/24 11:17 AM [facility] [employer] [id number] Progress note* Discharge Planning Note - Neli Rosa - 03/06/2024 8:38 AM EDT DISCHARGE PLANNING NOTE Referral sent to [facility] [place], [place] (P# [phone] ; F# [phone]) [facility] [employer] [id number] Plan of care note* Plan of Care - Tashia Redding RN - 03/05/2024 10:27 PM EDT Problem: Pain Goal: Patient goal is pain score less than 4, able to rest, and participant in treatment plan as appropriate Description: INTERVENTIONS: 1. Encourage patient or legal insurance claims representative to report early pain and ask [...] per policy 9. Teach patient or legal insurance claims representative interventions for comforting Outcome: Progressing Note: [...] at the bedside 7. Instruct patient/ patient insurance claims representative about use of safety devices 8. Include patient/ patient insurance claims representative in decisions related to safety Outcome: [...] hygiene technique 7. Identify and instruct patient/patient insurance claims representative in use of appropriate isolation precautionsfor identified infection/symptoms 8. Provide and discuss with patient/patient insurance claims representative on educational MDRO sheet 9. Encourage and monitor nutritional status daily and consult auto slip cover installer if indicated 10. Implement neutropenic guidelines as [...] questions answered. Problem: Knowledge Deficit Goal: Patient/patient insurance claims representative demonstrates understanding of disease process, treatment [...] Score of =/> 25 or indicated by [facility] Assessment Goal: Patient should be free from fall Description: Interventions: 1. [place] to environment 2. Hourly rounds addressing the [...] non-skid footwear 11. Teach patient and patient insurance claims representative to maintain environment for safety and [...] (cane, walker) within reach 19. Request patient insurance claims representative bring adaptive equipment/mobility aids from home or obtain and provide as needed 20. Consult pharmacy regarding effects of med's affecting mobility, cognition, and alternatives 21. Obtain physician order for PT if risk factors associated with mobility are present 22. Obtain physician order for OT as appropriate 23. Utilize diversional activities 24. Educate patient and patient insurance claims representative how to maintain a safe environment during visitationtimes (notify nurse prior to leaving bedside) 25. Consider appropriateness of medical or non-medical bill processor 26. Set up voiding schedule as appropriate (every 2 hours) Outcome: Progressing Note: Evaluation of progress towards goal: Pt. Remains fall free this hospitalization. Safety precautions maintained. [facility]10-23-2024 Progress note* PT/OT/WILDLIFE REFUGE SPECIALIST - JENNIFER Carpenter/Kosta - 03/05/2024 4:03 PM EDT Occupational Therapy Treatment Discharge Recommendations OT Recommendations : [facility] 6 Clicks: Daily Activity Putting on [...] Equipment: Gait belt, RW, chair alarm/bed alarm Telemetry/Cigarette And Filter Chief Inspector: No Oxygen Used: Room air Other: Fall [...] Patient will perform bed mobility with Modified Elaine Dates: Start: 03/04/24 Expected End: 03/25/24 Description: [...] Principal Problem: Viral meningitis Active Problems: Seizure ([facility]) [facility]10-23-2024 Progress note* PT/OT/WILDLIFE REFUGE SPECIALIST - Winnie Handy, JET MAN - 03/05/2024 3:57 PM EDT Physical Therapy Treatment Discharge Recommendations PT Recommendations: [facility] 6 Clicks: Basic Mobility Turning from [...] 6 Clicks: Basic Mobility Raw Score: 16 [facility] G Code Modifier: CK Therapy Plan Patient [...] Patient will perform bed mobility with Modified Elaine Dates: Start: 03/04/24 Expected End: 03/18/24 Description: Goal Description: Disciplines: PT Outcomes Date/Time User Outcome 03/05/241535 Winnie Handy PTA Progressing Goal Note filed on 03/05/24 153 by Winnie Handy PTA Evaluation of progress towards goal: Problem: Gait Dates: Start: 03/04/24 Disciplines: PT Goal: Patient will perform gait with Modified Elaine Dates: Start: 03/04/24 Expected End: 03/18/24 Description: [...] PT Outcomes Date/Time User Outcome 03/05/241535 Winnie aHndy PTA Progressing Goal Note [...] Goal: Patient will perform transfers with Modified Elaine Dates: Start: 03/04/24 Expected End: 03/18/24 Description: Goal Description:Patient to perform mobility with good safety awareness. Disciplines: PT Outcomes Date/Time User Outcome 03/05/24 153 Winnie Handy PTA Progressing Goal Note filed on 03/05/24 1536 by Winnie Handy PTA Evaluation of progress towards goal: Physical Therapy Care Plan (Resolved) There are no resolved problems. Principal Problem: Viral meningitis Active Problems: Seizure ([facility]) Cosigned by Gissell Friend PT at 03/06/2024 1:16 PM EDT Associated attestation - Gissell Friend PT - 03/06/2024 1:16 PM EDT I have reviewed and agree with this note and education documentation for this visit. [facility]10-23-2024 Hospital Discharge instructions* Discharge Instructions* Aga [...] up with infectious diseases. Recommend seeing an balance truer for evaluation of left eye concerning infection [...] For NEW patients, MD will not prescribe halfway pain medication. documented in [facility] Plan of care note * Plan of Care - Gayla Mcwilliams RN - 03/05/2024 10:55 AM EDT Problem: Pain Goal: Patient goal is pain score less than 4, able to rest, and participant in treatment plan as appropriate Description: INTERVENTIONS: 1. Encourage patient or legal insurance claims representative to report early pain and ask [...] per policy 9. Teach patient or legal insurance claims representative interventions for comforting Outcome: Progressing Note: [...] at the bedside 7. Instruct patient/ patient insurance claims representative about use of safety devices 8. Include patient/ patient insurance claims representative in decisions related to safety Outcome: [...] hygiene technique 7. Identify and instruct patient/patient insurance claims representative in use of appropriate isolation precautionsfor identified infection/symptoms 8. Provide and discuss with patient/patient insurance claims representative on educational MDRO sheet 9. Encourage and monitor nutritional status daily and consult auto slip cover installer if indicated 10. Implement neutropenic guidelines as [...] to monitor Problem: Knowledge Deficit Goal: Patient/patient insurance claims representative demonstrates understanding of disease process, treatment [...] Score of =/> 25 or indicated by [facility] Assessment Goal: Patient should be free from fall Description: Interventions: 1. [place] to environment 2. Hourly rounds addressing the [...] non-skid footwear 11. Teach patient and patient insurance claims representative to maintain environment for safety and [...] (cane, walker) within reach 19. Request patient insurance claims representative bring adaptive equipment/mobility aids from home or obtain and provide as needed 20. Consult pharmacy regarding effects of med's affecting mobility, cognition, and alternatives 21. Obtain physician order for PT if risk factors associated with mobility are present 22. Obtain physician order for OT as appropriate 23. Utilize diversional activities 24. Educate patient and patient insurance claims representative how to maintain a safe environment during visitationtimes (notify nurse prior to leaving bedside) 25. Consider appropriateness of medical or non-medical bill processor 26. Set up voiding schedule as appropriate [...] on patient's door 9. Provide patient/ patient insurance claims representative with isolation education. Outcome: Progressing Note: Evaluation of progress towards goal: patient currently on IV antibiotics for positive LP result [facility]10-22-2024 Plan of care note* Plan of Care - Tashia Redding RN - 03/04/2024 11:33 PM EDT Problem: Pain Goal: Patient goal is pain score less than 4, able to rest, and participant in treatment plan as appropriate Description: INTERVENTIONS: 1. Encourage patient or legal insurance claims representative to report early pain and ask [...] per policy 9. Teach patient or legal insurance claims representative interventions for comforting Outcome: Progressing Note: [...] at the bedside 7. Instruct patient/ patient insurance claims representative about use of safety devices 8. Include patient/ patient insurance claims representative in decisions related to safety Outcome: Progressing Note: Evaluation of progress towards goal: Pt. Remains injury free this hospitalization, safety precautions maintained. Problem: Moderate - High Risk Fall Score Description: [place] Fall Score of =/> 25 or indicated by [facility] Assessment Goal: Patient should be free from fall Description: Interventions: 1. [place] to environment 2. Hourly rounds addressing the [...] non-skid footwear 11. Teach patient and patient insurance claims representative to maintain environment for safety and [...] (cane, walker) within reach 19. Request patient insurance claims representative bring adaptive equipment/mobility aids from home or obtain and provide as needed 20. Consult pharmacy regarding effects of med's affecting mobility, cognition, and alternatives 21. Obtain physician order for PT if risk factors associated with mobility are present 22. Obtain physician order for OT as appropriate 23. Utilize diversional activities 24. Educate patient and patient insurance claims representative how to maintain a safe environment during visitationtimes (notify nurse prior to leaving bedside) 25. Consider appropriateness of medical or non-medical bill processor 26. Set up voiding schedule as appropriate (every 2 hours) Outcome: Progressing Note: Evaluation of progress towards goal: Pt. Remains fall free this hospitalization. Safety precautions maintained. [facility] [employer] [id number] Progress note* Discharge Planning Note - Danyelle Frye - 03/04/2024 4:53 PM EDT DISCHARGE PLANNING NOTE Referral sent to. [facility] in [place], [place] (P# ; F# ) [facility] [employer] [id number] Progress note* Discharge Planning Note - Lisa Guzman RN - 03/04/2024 4:20 PM EDT DISCHARGE PLANNING NOTE Follow-up Discharge Planning Progress Note Per RN during discharge transition rounds, barriers to discharge are: Hypertensive today, CXR, cultures pending. Discharge Plan: Home with home care. Therapy recommending [facility]. Patient declined. Patient agree to home care. [facility] choices. Warehouse Receiver informed will have referral sent, however need two additional choices. Will follow up tomorrow for additional choices. Care Navigation will continue to follow for any discharge needs. - Lisa Guzman RN 03/04/24 4:26 PM [employer] [id number] Consult note* Stuart Wade MD - 03/04/2024 2:27 PM EDTAssociated Order(s): IP CONSULT TO INFECTIOUS DISEASES Images from the original note were not included. Division of Infectious Diseases - Initial Consult Note [facility] - Academic Team 2 During Business Hours: Please page or use WIDIP for communication. After Hours: Please call for [...] Spinal Fluid culture includes gram stain, CSF [[id number]] Collected: 03/04/24 0930 Specimen: Cerebrospinal Fluid Updated: 03/04/24 1052 Gram Stain Result WHITE BLOOD CELLS PRESENT NO ORGANISMS SEEN ON CONCENTRATED SMEAR Culture PENDING It is not necessary to call with new culture results. Thank you for allowing us to participate in the care of this patient. Please call with questions. Stuart Wade MD, MPH, FACP, FIDSA From 7AM-7PM: Please page or use WIDIP for communication. From 7PM-7AM: Please call for our answering service. [employer] [id number] Consult note* Stuart Wade MD - 03/04/2024 2:27 PM EDTAssociated Order(s): IP CONSULT TO INFECTIOUS DISEASES Images from the original note were not included. Division of Infectious Diseases - Initial Consult Note [facility] - Academic Team 2 During Business Hours: Please page or use WIDIP for communication. After Hours: Please call for [...] Rico P, Heather CHATO, Samira calderón P, Ablgendy S, Taras L, Mabel X, Kiara N, [...] Spinal Fluid culture includes gram stain, CSF [[id number]] Collected: 03/04/24 0930 Specimen: Cerebrospinal Fluid Updated: 03/04/24 1052 Gram Stain Result WHITE BLOOD CELLS PRESENT NO ORGANISMS SEEN ON CONCENTRATED SMEAR Culture PENDING It is not necessary to call with new culture results. Thank you for allowing us to participate in the care of this patient. Please call with questions. Stuart Wade MD, MPH, FACP, FIDSA From 7AM-7PM: Please page or use [employer] for communication. From 7PM-7AM: Please call for our answering service. documented in this encounterE[facility]10-[facility]24 Progress note* PT/OT/WILDLIFE REFUGE SPECIALIST - Amber Mcmahon OTR/L - 03/04/2024 1:18 PM EDT Occupational Therapy Evaluation Discharge Recommendations OT Recommendations : [facility] SNF/ECF Comments: SNF recommended to improve [...] for OOB activity. Equipment: RW, gait belt Telemetry/Cigarette And Filter Chief Inspector: No Oxygen Used: room air Other: Fall [...] Rolling walker Other : Pt using RW JET MAN Prior Function Lives With: Alone Receives Help [...] Patient will perform bed mobility with Modified Elaine Dates: Start: 03/04/24 Expected End: 03/25/24 Description: [...] Principal Problem: Viral meningitis Active Problems: Seizure ([facility]) [employer] [id number] Progress note* PT/OT/WILDLIFE REFUGE SPECIALIST - Nicholas Lang, PT - 03/04/2024 1:01 PM EDT Physical Therapy Evaluation Discharge Recommendations PT Recommendations: [facility] SNF/ECF Comments: Pt would benefit from [...] for OOB activity. Equipment: RW, gait belt Telemetry/Cigarette And Filter Chief Inspector: No Oxygen Used: room air Other: Fall [...] Patient will perform bed mobility with Modified Elaine Dates: Start: 03/04/24 Expected End: 03/18/24 Description: Goal Description: Disciplines: PT Problem: Gait Dates: Start: 03/04/24 Disciplines: PT Goal: Patient will perform gait with Modified Elaine Dates: Start: 03/04/24 Expected End: 03/18/24 Description: [...] Goal: Patient will perform transfers with Modified Elaine Dates: Start: 03/04/24 Expected End: 03/18/24 Description: Goal Description:Patient to perform mobility with good safety awareness. Disciplines: PT Physical Therapy Care Plan (Resolved) There are no resolved problems. Principal Problem: Viral meningitis Active Problems: Seizure ([facility]) [facility]10-22-2024 Note Pre-procedure diagnosis: See history below Post-procedure diagnosis: Same as above Assistants/resident: See the technologist's notes above Consent/pre-procedure evaluation: See below. Orondo protocol timeout verification performed. Estimated blood loss: [...] José Antonio Rain MD on 03/04/2024 10:21 [id number] Nurse Note* Perioperative Nursing Note - Marlee Gallegos RN - 03/04/2024 9:49 AM EDT Report called to floor RN. [facility] [id number] Nurse Note* Perioperative Nursing Note - Marlee Gallegos RN - 03/04/2024 9:45 AM EDT Pt received Post-Op, POC discussed. [facility] [id number] Nurse Note* Scott Kramer - 03/04/2024 9:27 AM EDT Opening pressure 20 15cc of clear colorless fluid removed Closing pressure 4 [facility]10-22-2024 Nurse Note* Scott Kramer - 03/04/2024 9:27 AM EDT Opening pressure 20 15cc of clear colorless fluid removed Closing pressure 4 documented in this encounterElyria [facility] Hospital10-22-2024 Procedure note* Scott Kramer - 03/04/2024 9:11 AM EDT Site Preparation: Lower back Site Marked: yes Other: Lower back Prepped with: Chloraprep - with dry time of 3 minutes prior to draping the patient and Hibiclens Site Clipped: no Patient Draped: yes [facility]10-22-2024 Procedure note* Scott Kramer - 03/04/2024 9:11 AM EDT Site Preparation: Lower back Site Marked: yes Other: Lower back Prepped with: Chloraprep - with dry time of 3 minutes prior to draping the patient and Hibiclens Site Clipped: no Patient Draped: yes documented in this encounterElyria [facility] Hospital10-22-2024 Progress note* PT/OT/WILDLIFE REFUGE SPECIALIST - Nicholas Lang PT - 03/04/2024 9:03 AM EDT Physical Therapy CANCEL - Deferred (Pt undergoing LP in IR at this time) [facility]10-22-2024 Nurse Note* Perioperative Nursing Note - Marlee Gallegos RN - 03/04/2024 8:31 AM EDT Recieved to IVRR, POC discussed. [facility]10-[facility] Progress note* PT/OT/WILDLIFE REFUGE SPECIALIST - ROXANNE Raymundo - 03/04/2024 8:05 AM EDT Occupational Therapy (P) CANCEL - Deferred (Pt going down for LP by IR) [facility]10-22-2024 Plan of care note* Plan of Care - Tiffanie Smith RN - 03/04/2024 7:47 AM EDT Problem: Pain Goal: Patient goal is pain score less than 4, able to rest, and participant in treatment plan as appropriate Description: INTERVENTIONS: 1. Encourage patient or legal insurance claims representative to report early pain and ask [...] per policy 9. Teach patient or legal insurance claims representative interventions for comforting Outcome: Progressing Note: Evaluation of progress towards goal: Warehouse Receiver assessed pt pain in the beginning and throughout shift. Pt stated a tolerable pain goal was zero. Warehouse Receiver medicated pt pain per order. Will continue [...] at the bedside 7. Instruct patient/ patient insurance claims representative about use of safety devices 8. Include patient/ patient insurance claims representative in decisions related to safety Outcome: [...] hygiene technique 7. Identify and instruct patient/patient insurance claims representative in use of appropriate isolation precautionsfor identified infection/symptoms 8. Provide and discuss with patient/patient insurance claims representative on educational MDRO sheet 9. Encourage and monitor nutritional status daily and consult auto slip cover installer if indicated 10. Implement neutropenic guidelines as needed 11. Review exposure to history of communicable disease and recent travel history on admission 12. Encourage annual influenza vaccine 13. Encourage pneumonia vaccine Outcome: Progressing Note: Evaluation of progress towards goal: Warehouse Receiver assessed pt risk for infection in the beginning and throughout shift. Pt remains afebrile. Will continue to monitor. Problem: Knowledge Deficit Goal: Patient/patient insurance claims representative demonstrates understanding of disease process, treatment plan,medications, and discharge instructions Description: INTERVENTIONS 1. Complete learning assessment and assess knowledge base 2. Provide teaching at level of understanding 3. Provide teaching via preferred learning method(s) Outcome: Progressing Note: Evaluation of progress towards goal: Warehouse Receiver educated pt on admission disease, medications, treatment, and discharge planning. Will continue to monitor. Problem: Moderate - High Risk Fall Score Description: [place] Fall Score of =/> 25 or indicated by [facility] Assessment Goal: Patient should be free from fall Description: Interventions: 1. [place] to environment 2. Hourly rounds addressing the [...] non-skid footwear 11. Teach patient and patient insurance claims representative to maintain environment for safety and [...] (cane, walker) within reach 19. Request patient insurance claims representative bring adaptive equipment/mobility aids from home or obtain and provide as needed 20. Consult pharmacy regarding effects of med's affecting mobility, cognition, and alternatives 21. Obtain physician order for PT if risk factors associated with mobility are present 22. Obtain physician order for OT as appropriate 23. Utilize diversional activities 24. Educate patient and patient insurance claims representative how to maintain a safe environment during visitationtimes (notify nurse prior to leaving bedside) 25. Consider appropriateness of medical or non-medical bill processor 26. Set up voiding schedule as appropriate (every 2 hours) Outcome: Progressing Note: Evaluation of progress towards goal: Warehouse Receiver assessed pt fall precautions in the beginning andthroughout shift. Pt room left free of clutter, pt has all belongings and call light within reach. Will continue to monitor. [employer] [id number] Progress note* Query Response - Aga Ortiz [...] by: Aga Mendoza MD 03/04/2024 6:57 AM [facility]10-21-2024 Plan of care note* Plan of [...] at the bedside 7. Instruct patient/ patient insurance claims representative about use of safety devices 8. Include patient/ patient insurance claims representative in decisions related to safety Outcome: [...] hygiene technique 7. Identify and instruct patient/patient insurance claims representative in use of appropriate isolation precautionsfor identified infection/symptoms 8. Provide and discuss with patient/patient insurance claims representative on educational MDRO sheet 9. Encourage and monitor nutritional status daily and consult auto slip cover installer if indicated 10. Implement neutropenic guidelines as [...] Description: INTERVENTIONS: 1. Encourage patient or legal insurance claims representative to report early pain and ask [...] per policy 9. Teach patient or legal insurance claims representative interventions for comforting Note: Evaluation of progress towards goal: Patient encouraged to report pain occurrence. Pain assessed using 0-10 pain scale. Patient reports no pain at this time. PRN pain medication ordered if needed. [facility]10-21-2024 Plan of care note* Plan of Care - Radha Rico RN - 03/03/2024 6:40 PM EDT Problem: Pain Goal: Patient goal is pain score less than 4, able to rest, and participant in treatment plan as appropriate Description: INTERVENTIONS: 1. Encourage patient or legal insurance claims representative to report early pain and ask [...] per policy 9. Teach patient or legal insurance claims representative interventions for comforting Outcome: Progressing Note: Evaluation of progress towards goal: Encourage patient or legal insurance claims representative to report early pain and ask [...] at the bedside 7. Instruct patient/ patient insurance claims representative about use of safety devices 8. Include patient/ patient insurance claims representative in decisions related to safety Outcome: [...] hygiene technique 7. Identify and instruct patient/patient insurance claims representative in use of appropriate isolation precautionsfor identified infection/symptoms 8. Provide and discuss with patient/patient insurance claims representative on educational MDRO sheet 9. Encourage and monitor nutritional status daily and consult auto slip cover installer if indicated 10. Implement neutropenic guidelines as [...] and monitor nutritional status daily and consult auto slip cover installer if indicated. Encourage annual influenza vaccine and pneumonia vaccine. 1Lay10-21-2024 Progress note* Discharge Planning Note - Zita [...] to perform ADLs. 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 Her son will transport home at discharge. Her PCP is Dr. Jeremiah Reed,will add to Bus[employer]. She denies any financial restraints to meeting [...] home (pt-stated) Evaluation of progress towards goal: 1Lay10-20-2024 Plan of care note* Plan of Care - Ankit De Dios RN - 03/02/2024 10:40 PM EDT Problem: Pain Goal: Patient goal is pain score less than 4, able to rest, and participant in treatment plan as appropriate Description: INTERVENTIONS: 1. Encourage patient or legal insurance claims representative to report early pain and ask [...] per policy 9. Teach patient or legal insurance claims representative interventions for comforting Outcome: Progressing Note: [...] at the bedside 7. Instruct patient/ patient insurance claims representative about use of safety devices 8. Include patient/ patient insurance claims representative in decisions related to safety Outcome: [...] hygiene technique 7. Identify and instruct patient/patient insurance claims representative in use of appropriate isolation precautionsfor identified infection/symptoms 8. Provide and discuss with patient/patient insurance claims representative on educational MDRO sheet 9. Encourage and monitor nutritional status daily and consult auto slip cover installer if indicated 10. Implement neutropenic guidelines as [...] to monitor Problem: Knowledge Deficit Goal: Patient/patient insurance claims representative demonstrates understanding of disease process, treatment [...] Score of =/> 25 or [facility] Goal: Patient should be free from fall Description: Interventions: 1. [place] to environment 2. Hourly rounds addressing the [...] non-skid footwear 11. Teach patient and patient insurance claims representative to maintain environment for safety and [...] (cane, walker) within reach 19. Request patient insurance claims representative bring adaptive equipment/mobility aids from home or obtain and provide as needed 20. Consult pharmacy regarding effects of med's affecting mobility, cognition, and alternatives 21. Obtain physician order for PT if risk factors associated with mobility are present 22. Obtain physician order for OT as appropriate 23. Utilize diversional activities 24. Educate patient and patient insurance claims representative how to maintain a safe environment during visitationtimes (notify nurse prior to leaving bedside) 25. Consider appropriateness of medical or non-medical bill processor 26. Set up voiding schedule as appropriate (every 2 hours) Outcome: Progressing Note: Evaluation of progress towards goal: Fall risk assessed, bed maintained in low position, calllight within reach, bed and chair alarm on and working, nil falls this shift. Will continue to monitor [facility]10-20-2024 Plan of care note* Plan of Care - Dayna Petitanneliese - 03/02/2024 2:30 PM EDT Problem: Pain Goal: Patient goal is pain score less than 4, able to rest, and participant in treatment plan as appropriate Description: INTERVENTIONS: 1. Encourage patient or legal insurance claims representative to report early pain and ask [...] per policy 9. Teach patient or legal insurance claims representative interventions for comforting Outcome: Progressing Note: Evaluation of progress towards goal: Warehouse Receiver assessed pt pain in the beginning and throughout shift. Pt stated a tolerable pain goal was zero. Warehouse Receiver medicated pt pain per order. Will continue [...] at the bedside 7. Instruct patient/ patient insurance claims representative about use of safety devices 8. Include patient/ patient insurance claims representative in decisions related to safety Outcome: [...] hygiene technique 7. Identify and instruct patient/patient insurance claims representative in use of appropriate isolation precautionsfor identified infection/symptoms 8. Provide and discuss with patient/patient insurance claims representative on educational MDRO sheet 9. Encourage and monitor nutritional status daily and consult auto slip cover installer if indicated 10. Implement neutropenic guidelines as [...] of infection. Problem: Knowledge Deficit Goal: Patient/patient insurance claims representative demonstrates understanding of disease process, treatment [...] Score of =/> 25 or indicated by [facility] Assessment Goal: Patient should be free from fall Description: Interventions: 1. [place] to environment 2. Hourly rounds addressing the [...] non-skid footwear 11. Teach patient and patient insurance claims representative to maintain environment for safety and [...] (cane, walker) within reach 19. Request patient insurance claims representative bring adaptive equipment/mobility aids from home or obtain and provide as needed 20. Consult pharmacy regarding effects of med's affecting mobility, cognition, and alternatives 21. Obtain physician order for PT if risk factors associated with mobility are present 22. Obtain physician order for OT as appropriate 23. Utilize diversional activities 24. Educate patient and patient insurance claims representative how to maintain a safe environment during visitationtimes (notify nurse prior to leaving bedside) 25. Consider appropriateness of medical or non-medical bill processor 26. Set up voiding schedule as appropriate [...] - Tiffanie Smith RN 03/02/24 5:59 PM 1Lay10-20-2024 Plan of care note* Plan of Care - Jaimee Hobson RN - 03/02/2024 4:15 AM EDT Problem: Pain Goal: Patient goal is pain score less than 4, able to rest, and participant in treatment plan as appropriate Description: INTERVENTIONS: 1. Encourage patient or legal insurance claims representative to report early pain and ask [...] per policy 9. Teach patient or legal insurance claims representative interventions for comforting Outcome: Progressing Note: [...] at the bedside 7. Instruct patient/ patient insurance claims representative about use of safety devices 8. Include patient/ patient insurance claims representative in decisions related to safety Outcome: [...] hygiene technique 7. Identify and instruct patient/patient insurance claims representative in use of appropriate isolation precautionsfor identified infection/symptoms 8. Provide and discuss with patient/patient insurance claims representative on educational MDRO sheet 9. Encourage and monitor nutritional status daily and consult auto slip cover installer if indicated 10. Implement neutropenic guidelines as needed 11. Review exposure to history of communicable disease and recent travel history on admission 12. Encourage annual influenza vaccine 13. Encourage pneumonia vaccine Note: Evaluation of progress towards goal: Patient has remained afebrile. WBC and vital signs monitored. Patient has not shown any additional signs of infection at this time. [employer] [id number] History and physical note* Aga Ortiz MD - 03/02/2024 1:55 AM EDT Images from the original note were not included. [facility] Neurology General Neurology Primary Admission Note Primary Neurology service: [phone] Chief Complaint: Photophobia and confusion with shingles [...] light touch throughout. Cerebellar: Able to do iidrki-ps-ppmd bilaterally Gait and station: Deferred Pertinent Labs: [...] code Porfirio Choi MD PGY-2 Neurology Resident [facility] 03/02/24 Staffed with: Dr. Monteiro This patient is being followed by the Neurology Resident service. Contact attending directly during these hours: Sunday to 7:30-8:30 A.M. to Sunday 12-1:00 p.m. Primary Neurology service: [phone] Consult neurology service: [phone] Resident Stroke Service: [phone] If the patient belongs to the Stroke [...] above. Aga Mendoza MD PGY-3 Neurology Resident [facility] Staffed with Dr. Monteiro Cosigned by [...] acute left V1 herpetic infection; rule out PHARMACOVIGILANCE SPECIALIST viral infection (VZV) Plans/Recommendations: continue IV acyclovir; IR-guided LP after brain MRI with contrast; neurological observation; extensive discussion with patient and her son; questions answered and consent obtained Renay Monteiro MD, PhD [facility] [employer] [id number] History and physical note* Aga Ortiz MD - 03/02/2024 1:55 AM EDT Images from the original note were not included. [facility] Neurology General Neurology Primary Admission Note Primary Neurology service: [phone] Chief Complaint: Photophobia and confusion with shingles [...] light touch throughout. Cerebellar: Able to do etfpnd-vs-bpju bilaterally Gait and station: Deferred Pertinent Labs: [...] code Porfirio Choi MD PGY-2 Neurology Resident [facility] 03/02/24 Staffed with: Dr. Monteiro This patient is being followed by the Neurology Resident service. Contact attending directly during these hours: Sunday to 7:30-8:30 A.M. to Sunday 12-1:00 p.m. Primary Neurology service: [phone] Consult neurology service: [phone] Resident Stroke Service: [phone] If the patient belongs to the Stroke [...] above. Aga Mendoza MD PGY-3 Neurology Resident [facility] Staffed with Dr. Monteiro Cosigned by [...] acute left V1 herpetic infection; rule out PHARMACOVIGILANCE SPECIALIST viral infection (VZV) Plans/Recommendations: continue IV acyclovir; IR-guided LP after brain MRI with contrast; neurological observation; extensive discussion with patient and her son; questions answered and consent obtained Renay Monteiro MD, PhD [facility] History of Present illness Narrative* Christiano [...] Partner Violence: Unknown (07/05/2023) Re[facility] from [facility] [place] Safety & Environment Fear of Current [...] 10 Christiano Maldonado DPM documented in this encounterPutnam County Memorial [id number] Hospital Discharge instructions Patient Education 12/25/2023 13:05:34 [...] to have the catheter removed. Medicines Take bkul-qav-mfbjily and prescription medicines only as told by [...] provider. Document Revised: 12/16/2020 Document Reviewed: 12/03/2020 [employer] Patient Education 2022 [employer]. Follow Up Care 12/03/2023 14:36:32 With:BRENDA MARIN PA-C, URL Address: [address] [place] [address] [phone] When: Unknown [facility] 08-13-2024 NotePatient Education Urology Injection Treatments [...] have the catheter removed. Medicines ? Take kbvi-bzm-ncegdfb and prescription medicines only as told by [...] provider. Document Revised: 12/16/2020 Document Reviewed: 12/03/2020 [employer] Patient Education ? 2022 [employer].[facility] 12-03-2023 Hospital Discharge instructions Patient Education [...] Up Care 10/01/2023 15:36:12 With:BRENDA MARIN Address: [address] [place] [address] Business (1) When: Unknown Comments:Call for followup appointment with Georgette Marin PA-C within the next three weeks or so. Push fluids to keep the urine clear. Expect the Botox to start working within the next 2-3 weeks. Have a great day! [facility]07-22-2024 NotePatient Education Cystoscopy with Botox [...] if you have a fever over 100 degrees.[facility] 09-26-2023 Hospital Discharge instructions Patient Education [...] including vitamins, herbs, eye drops, creams, and qkue-way-zflxxrw medicines. Any problems you or family members [...] provider tells you to take them. Taking vbji-uzo-pqpnzvi medicines, vitamins, herbs, and supplements. General instructions [...] Follow these instructions at home: Medicines Take mcow-frq-dintlmo and prescription medicines only as told by [...] provider. Document Revised: 11/04/2021 Document Reviewed: 11/04/2021 [employer] Patient Education 2022 [employer]. Follow Up Care 08/30/2023 10:04:37 With:MIAH ROE, BRENDA Poole, URL Address: [address] [place] [address] [phone] When: Unknown Comments:flaquita dietz MD [facility] 04-16-2024 Hospital Discharge instructions Patient Education [...] your health care provider. General instructions Take vmho-yzc-ytyemas and prescription medicines only as told by [...] provider. Document Revised: 01/17/2021 Document Reviewed: 01/17/2021 [employer] Patient Education 2022 [employer]. Follow Up Care 07/23/2023 14:35:57 With:BRENDA MARIN PA-C, URL Address: [address] [place] [address] Business (1) When:6 weeks [facility] 03-11-2024 Hospital Discharge instructions Patient Education [...] Up Care 06/11/2023 13:39:28 With:BRENDA MARIN Address: [address] [facility] [place] [address] Business (1) When: Unknown Comments:Call for followup appointment with Georgette Marin PA-c within the next 2 months or so to monitor you. Please finish your antibiotics and have a great day. [facility]03-11-2024 Note [id number] [facility] 07-23-2023 NoteCystoscopy with Urethral Dilation ? [...] if you have a fever over 100 degrees[facility]02-[facility] Evaluation note* Encounter Date Diagnosis Assessment Notes Treatment Notes Treatment Clinical Notes Jun, Essential (primary) hypertension (ICD-10 - I10) [employer] Other 01-23-2024 Hospital Discharge instructions Patient Education [...] reconstructed. Follow these instructions at home: Take kzdw-qhu-xuhessv and prescription medicines only as told by [...] provider. Document Revised: 03/07/2022 Document Reviewed: 03/07/2022 [employer] Patient Education 2022 [employer]. Follow Up Care 06/21/2022 15:14:52 With:CEZAR BERNAL, Cayden Hollins, URL Address: [address] [place] [address] [place] [address]- When: Unknown [facility] 01-23-2024 Evaluation + Plan note Diagnostic Tests Pending * Urine Culture 06/05/23 [facility]12-18-2023 Evaluation note* Encounter Date Diagnosis [...] symptoms. Any developing patterns. Stay well hydrated. 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 Future Appointments Appointment Date:06/05/2023 01:00:00 PM Scheduled Provider:BRENDA MARIN PA-C Location:[facility] Appointment Type:URO Office Visit [facility]12-01-2023 Hospital Discharge instructions Patient Education [...] friend for help if needed. Medicines Take dvtu-afe-oxrahav and prescription medicines only as told by [...] consider day care, extended-care programs, or a longterm facility. The person's health care provider may [...] provider. Document Revised: 08/24/2020 Document Reviewed: 08/24/2020 [employer] Patient Education 2022 [employer]. Follow Up Care 04/12/2023 12:15:50 With:Johnnie BERNAL, ALPHONSE Choi Address: [address] [place] [address]- When:1 to 2 weeks Comments:This office is closed on Fridays. Please call the office on Sunday April 16, 2023 for a follow upappiontment. Thank you. With:JEREMIAH REED Address: [address] [place] [address]- [facility] (1) When:2 to 4 days Comments:Call for followup appointment With:[facility] Address:Unknown When: Unknown Comments:Call for followup appointment for anxiety/depression care. [facility]11-17-2023 Evaluation note* Encounter Date Diagnosis Assessment Notes Treatment Notes Treatment Clinical Notes Mar, Colon cancer screening (ICD-10 - Z12.11) [employer] Other [id number] Evaluation note* Encounter Date Diagnosis Assessment Notes Treatment Notes Treatment Clinical Notes Mar, Generalized weakness (ICD-10 - R53.1) Followup as scheduled w ortho and PT Mar, COPD, moderate (ICD-10 - J44.9) continue present medication reviewed ER report from observation status [employer] Other 03-30-2023 NoteCONSULTATION CONSULTATION DATE: 08/10/2022 TO: [...] weeks' time or sooner if needed. [facility] [id number] NoteCONSULTATION PROCEDURE DATE: 08/10/2022 PROCEDURE: Right suprascapular [...] reduction in her pain symptoms post procedurally.[facility] CenterRjbbalff20-23-3879 Hospital Discharge instructions Patient Education 06/21/2022 14:35:24 [...] fried and sweet foods. General instructions Take yuar-jxz-ixyptlc and prescription medicines only as told by [...] 02/24/2010 Document Revised: 08/21/2019 Document Reviewed: 05/16/2018 [employer] Patient Education 2020 [employer]. Follow Up Care 05/19/2021 14:10:29 With:BRENDA MARIN PA-C, URL Address: [address] [place] [address] When: Unknown [facility] 12-29-2022 NoteCONSULTATION CONSULTATION DATE: 05/11/2022 HISTORY [...] the diclofenac. She presents today 13 pounds supervisor sample, feels that she is even breathing better. [...] in three months' time unless otherwise indicated.[facility] [id number] NoteCONSULTATION CONSULTATION DATE: 02/23/2022 This is a [...] in three months' time unless otherwise indicated.[facility] CenterOrznrbdq84-94-4031 NoteCONSULTATION CONSULTATION DATE: 01/08/2022 HISTORY OF PRESENT [...] followed up in the office post procedure.[facility] CenterGtxnykrz31-14-9208 Note CONSULTATION CONSULTATION DATE: 12/07/2021 HISTORY OF [...] and patient would like to proceed. [facility] CenterShygjevp96-60-2839 History general Narrative - Reported* Type Description Date Medical History Chronic back pain Medical History HTN Medical History anxiety Medical History DJD Medical History osteoporosis Surgical History Lumbar laminectomy and fusion Surgical History Hysterectomy (spared L ovary) Surgical History Landaverde's neuroma Hospitalization History For surgery as above Hospitalization History [facility] 03/2023 [employer] Other Evaluation + Plan note Future Appointments Appointment Date:06/26/2023 02:30:00 PM Scheduled Provider:BRENDA MARIN PA-C Location:[facility] Appointment Type:URO Office Visit [facility] evaluation + Plan note Future Appointments Appointment Date:08/28/2023 03:00:00 PM Scheduled Provider:BRENDA MARIN PA-C Location:[facility] Appointment Type:[facility]O [facility] Future Appointments Appointment Date:11/27/2023 11:00:00 AM Scheduled Provider: Location:[facility] Appointment Type:Urology CALL PAT FT Appointment Date:12/03/2023 02:00:00 PM Scheduled Provider: Location:[facility] Appointment Type:Urology FT [facility] evaluation + Plan note Future Appointments Appointment Date:12/25/2023 12:40:00 PM Scheduled Provider:BRENDA MARIN PA-C Location:[facility] Appointment Type:URO [facility] Future Appointments Appointment Date:10/27/2024 01:20:00 PM Scheduled Provider:BRENDA MARIN PA-C Location:[facility] Appointment Type:URO Office Visit [facility] evaluation noteNo InformationNomer[facility] Other Evaluation noteNo assessment information [facility] Work Phone: Evaluation note* Diagnosis Onychomycosis- [...] SystemHistory and physical note Author Rosendo Law [facility] Note Date/Time March 31, 2024 12:29pm [facility] [address] [place] [address] Hospitalist H&P Signed Patient: Aaron Lewis MR#: [id number] : 1945 Acct:[id number] Age/Sex: 79 / F Adm Date: 4 Loc: Room: [address] [place] [address] Type: ADM IN Attending Dr: Rosendo Law [...] and referred to hospitalist service forfurther management. [facility] Medical History (Updated 03/31/24 @ 12:27 by [...] % (Auto) 19.2 % (.) 03/31/24 07:57 [place] % (Auto) 8.9 % (.) 03/31/24 07:57 Eos % (Auto) 2.6 % (.) 03/31/24 07:57 Baso % (Auto) 1.1 % (.) 03/31/24 07:57 Nucleat RBC Rel Count 0.1 /100 WBC (0-0.5) 03/31/24 07:57 Neut # (Auto) 4.7 x10E3/uL (1.8-7.7) 03/31/24 07:57 Lymph # (Auto) 1.3 x10E3/uL (1.00-4.8) 03/31/24 07:57 [place] # (Auto) 0.6 x10E3/uL (0.0-0.8) 03/31/24 07:57 [...] pH 6.0 (5.0-9.0) 03/31/24 07:19 Ur Specific [place] 1.011 (1.001-1.030) 03/31/24 07:19 Urine Protein Negative [...] errors, if they are is due to perfusionist. Rosendo Law MD Hospitalist IP vs OBS [...] signed by Rosendo Law MD> 03/31/24 1229 [facility] Work Phone: Hospital course Narrative No data available for this section [facility] Hospital Discharge instructions No data available for this section [facility] Additional Instructions Increase fluids. Use Miralax twice a day until regular bowel movements. Take antibiotic for urinary tract infection.[facility] Work Phone: InstructionsNot on filedocumented in this encounter [facility] SystemProgress note No data available for this section [facility] reason for visit Narrative* Auth/Cert (Routine) Specialty Diagnoses / Procedures Referred By Contac t Referred To Contact Diagnoses Viral meningitis Suspected viral meningitis Renay Monteiro MD [address] [place] [address] Phone: tel: fax: Referral ID Status Reason Start Date Expiration Date Visits Re quested Visits Authorized [id number] 1 1 [facility] Summary Purpose Family History Relationship [...] 2024 12:23pm confusion April 02, 2024 8:53am half-way visit April 14, 2024 1 1:59pm half-way visit April 24, 2024 11:59pm Amb Documentation [...] 2023 End: April 03, 2024 Pamella Avitia BREADMAN Other Provider Active St art: March 31, [...] Other Provider Active Start: April 02, 2024 It Desktop Support Specialist Relationship Specialty Start Date End Date Jeremiah Reed MD [address] [place] [address] PCP - General Family Medicine 08/30/23 [employer] Desktop Support Specialist Relationship Specialty Start Date End Date Jeremiah Reed MD [address] [place] [address] PCP - General Family Medicine 08/30/23 Team Status: Active Member Role Status Dates Jeremiah Reed MD Primary Care Provide r, Attending Provider Active Start: April 14, 2024 Team Status: Active Member Role Status Dates Jeremiah Reed MD Primary Care Provide r, Attending Provider Active Start: April 22, 2024 Team Status: Active Member Role Status Dates Jeremiha Reed MD Primary Care Provide r, Attending Provider Active Start: April 24, 2024 Team Status: Active Member Role Status Dates Jeremiah Reed MD Primary Care Provider Active Start: May 21, 2024 Jenny Ezio , HOTEL GENERAL MANAGER Attending Provider Active Start: May 21, 2024 Team Status: Inactive Member Role Status Dates Jeremiah Reed MD Primary Care Provide r, Attending Provider Active Start: May 22, 2024 End: May 22, 2024 It Desktop Support Specialist Relationship Specialty Start Date End Date Jeremiah Reed MD [address] [place] [id number] PCP - General Family Medicine 03/03/24 It Desktop Support Specialist Relationship Specialty Start Date End Date Jeremiah Reed MD [address] [place] [address] PCP - General Family Medicine 03/03/24 INFORMATION SOURCE (unrecogn ized section and content) DATE CREATED AUTHOR 09/08/2022 [facility] pital DATE CREATED AUTHOR AUTHOR'S ORGANIZ ATION 01/26/2024 [facility] DATE CREATED AUTHOR AUTHOR'S ORGANIZ ATION 02/11/2024 [facility] DATE CREATED AUTHOR AUTHOR'S ORGANIZ ATION 04/27/2024 [facility] DATE CREATED AUTHOR AUTHOR'S ORGANIZ ATION 05/23/2024 [facility] DATE CREATED AUTHOR AUTHOR'S ORGANIZ ATION 05/28/2024 [facility] Goals (unrecognized section and content) Goals may [...] 0430, VESICANT (YELLOW), Indication: HSV/VZV infection of PHARMACOVIGILANCE SPECIALIST 0401 (New Bag - Provider: Tashia Redding [...] BE BASED ON THE PRIMARY CLINICAL RECORDS. [employer] provides no warranty or guarantee of the accuracy or completeness of information in this document.
--- NOTE | 2024-08-03 11:26 | ED.GENADUL1 ---
HPI HPI - General Adult General Chief complaint: Extremity Problem, Nontraumatic Stated complaint: UPPER EXTREMITY PAIN Time Seen by Provider: 08/03/24 11:11 Source: patient Mode of arrival: Wheelchair History of Present Illness HPI narrative: 79-year-old female presents for pain in her left hand. She states it has been hurting for about 3 weeks. She had an x-ray of her wrist ordered by her pain management doctor but nobody ever got back to me about it. She complains however of pain in the dorsum of the hand. She states there is been no injury but she has noticed bruising for 3 weeks. Related Data Home Medications ?Medication ?Instructions ?Recorded ?Confirmed omeprazole 40 mg capsule,delayed 40 mg PO DAILY 10/26/22 08/03/24 release calcium carbonate (Calcium 600) 600 mg PO DAILY 03/21/23 08/03/24 aspirin 81 mg tablet,delayed 81 mg PO DAILY 08/30/23 08/03/24 release buspirone 10 mg tablet 15 mg PO BID 12/28/23 08/03/24 baclofen 10 mg tablet 10 mg PO BID PRN pain 03/01/24 08/03/24 trospium 20 mg tablet 20 mg PO DAILY 03/01/24 08/03/24 docusate sodium 100 mg capsule 100 mg PO DAILY 05/15/24 08/03/24 (Colace) gabapentin 600 mg tablet 600 mg PO TID 05/15/24 08/03/24 ondansetron 4 mg disintegrating 4 mg PO TID-QID PRN nausea and 05/15/24 08/03/24 tablet vomiting amlodipine 5 mg tablet 5 mg PO DAILY 07/17/24 08/03/24 famciclovir 125 mg tablet 125 mg PO BID 07/17/24 08/03/24 glucosamine sulfate 500 mg tablet 500 mg PO DAILY 07/17/24 08/03/24 (Glucosamine) multivitamin 1 tab PO DAILY 07/17/24 08/03/24 vit C-vit X-kysumq-fnysxoqb-omega 1 cap PO DAILY 07/17/24 08/03/24 3 100 mg-15 unit-2 mg-100 mg capsule Previous Rx's ?Medication ?Instructions ?Recorded naloxone 4 mg/actuation nasal 4 mg intranasal Q2M PRN opioid 03/27/24 spray (Narcan) overdose #1 ea oxycodone-acetaminophen 5 mg-325 1 tab PO TID PRN pain #90 tabs 05/08/24 mg tablet (Percocet) nortriptyline 25 mg capsule 25 mg PO DAILY #30 caps 06/02/24 Allergies Allergy/AdvReac Type Severity Reaction Status Date / Time No Known Drug Allergies Allergy Verified 07/14/24 08:00 Opioid HPI Opioid Management Most Recent Opioid Data: Last Pain Scale 4 08/03/24 11:17 08/03/24 Review of Systems ROS Narrative A ten point review of systems is negative except as noted above. [facility] Medical History (Updated 08/03/24 @ 12:44 by Jeremy Talavera MD) Metabolic encephalopathy ?G93.41 - Metabolic encephalopathy (ICD-10) COPD (chronic obstructive pulmonary disease) ?J44.9 - Chronic obstructive pulmonary disease, unspecified (ICD-10) GERD (gastroesophageal reflux disease) ?K21.9 - Gastro-esophageal reflux disease without esophagitis (ICD-10) Chronic pain ?G89.29 - Other chronic pain (ICD-10) Anxiety ?F41.9 - Anxiety disorder, unspecified (ICD-10) HTN (hypertension) ?I10 - Essential (primary) hypertension (ICD-10) Chronic prescription opiate use ?Z79.891 - halfway (current) use of opiate analgesic (ICD-10) Shoulder arthritis ?M19.019 - Primary osteoarthritis, unspecified shoulder (ICD-10) Cervical spondylosis ?M47.812 - Spondylosis without myelopathy or radiculopathy, cervical region (ICD-10) Surgical History History of lumpectomy of left breast ?Z98.890 - Other specified postprocedural states (ICD-10) History of back surgery ?Z98.890 - Other specified postprocedural states (ICD-10) History of hysterectomy ?Z90.710 - Acquired absence of both cervix and uterus (ICD-10) Family History Mother Family history of cancer Father Family history of stroke Grandfather Family history of stroke Social History Within the past year, how often did you have a drink containing alcohol: never Score interpretation: A score less than 3 is consistent with normal alcohol consumption. Smoking status: Former smoker Non-prescribed substance use: denies use Previous occupational history: retired Highest level of school completed/degree received: high school graduate Are you now , , , , never or living with a partner: Little interest or pleasure in doing things: not at all Feeling down, depressed, or hopeless: not at all Feel stressed/tense/nervous/anxious/difficulty sleeping: not at all Do you think of yourself as: straight/heterosexual Gender Identity: female Exam Narrative Exam Narrative: Nurses note and vital signs reviewed and patient is not hypoxic. General: The patient appears well and in no apparent distress. Patient is resting comfortably on cart. Skin: Warm, dry, no pallor noted. There is no rash noted. Head: Normocephalic, atraumatic Eye: Normal conjunctiva, no drainage Ears, Nose, Mouth, and Throat: oral mucosa is moist. Nares patent. Cardiovascular: Regular Rate and Rhythm Respiratory: Patient is in no distress, no accessory muscle use, lungs are clear to auscultation, no wheezing, rales or rhonchi Back: non-tender GI: Soft and nontender Musculoskeletal: There is some bruising and tenderness on the dorsum of the left hand. Fingers have good range of motion Neurological: A&O, normal speech Psychiatric: Cooperative Constitutional Vital Signs, click to edit/add: Last Vital Signs Temp 98.2 F 08/03/24 11:03 Pulse 109 H 08/03/24 11:03 Resp 22 H 08/03/24 11:03 BP 124/76 08/03/24 11:03 Pulse Ox 97 08/03/24 11:03 O2 Del Method Room Air 08/03/24 11:03 Course Vital Signs Vital signs: Vital Signs Temperature 98.2 F 08/03/24 11:03 Pulse Rate 109 H 08/03/24 11:03 Respiratory Rate 22 H 08/03/24 11:03 Blood Pressure 124/76 08/03/24 11:03 Pulse Oximetry 97 08/03/24 11:03 Oxygen Delivery Method Room Air 08/03/24 11:03 Temperature 98.2 F 08/03/24 11:03 Pulse Rate 109 H 08/03/24 11:03 Respiratory Rate 22 H 08/03/24 11:03 Blood Pressure 124/76 08/03/24 11:03 Pulse Oximetry 97 08/03/24 11:03 Oxygen Delivery Method Room Air 08/03/24 11:03 Medical Decision Making MDM Narrative Medical decision making narrative: X-ray per radiologist shows arthritic changes. Splint applied, application checked by me and found to be appropriate. She has had no injury and I do not suspect any acute ligamentous injury at the scapholunate joint. She will follow-up with her doctor. Treatment diagnosis and follow-up were discussed with the patient. 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 Discharge Plan Discharge Chief Complaint: Extremity Problem, Nontraumatic Clinical Impression: Left hand pain Patient Disposition: Home, Self-Care Time of Disposition Decision: 12:44 Condition: Good Mode of Transportation: Private Vehicle Prescriptions / Home Meds: No Action aspirin 81 mg tablet,delayed release (DR/EC) 81 mg PO DAILY gabapentin 600 mg tablet 600 mg PO TID ondansetron 4 mg tablet,disintegrating 4 mg PO TID-QID PRN (Reason: nausea and vomiting) docusate sodium [Colace] 100 mg capsule 100 mg PO DAILY nortriptyline 25 mg capsule 25 mg PO DAILY Qty: 30 2RF trospium 20 mg tablet 20 mg PO DAILY Rx Instructions: administer on an empty stomach at HS baclofen 10 mg tablet 10 mg PO BID PRN (Reason: pain) Rx Instructions: 1-3 times a day omeprazole 40 mg capsule,delayed release(DR/EC) 40 mg PO DAILY calcium carbonate [Calcium 600] 600 mg calcium (1,500 mg) tablet 600 mg PO DAILY buspirone 10 mg tablet 15 mg PO BID naloxone [Narcan] 4 mg/actuation spray,non-aerosol 4 mg intranasal Q2M PRN (Reason: opioid overdose) Qty: 1 0RF Rx Instructions: spray 1 dose into ONE nostril; alternate nostrils w each dose until help arrives glucosamine sulfate [Glucosamine] 500 mg tablet 500 mg PO DAILY Rx Instructions: administer with a meal multivitamin Tablet 1 tab PO DAILY amlodipine 5 mg tablet 5 mg PO DAILY vit C-vit J-mexwzn-oks-om-3 [id number] bs-ryfv-my-mg capsule 1 cap PO DAILY famciclovir 125 mg tablet 125 mg PO BID oxycodone-acetaminophen [Percocet] 5-325 mg tablet 1 tab PO TID PRN (Reason: pain) Qty: 90 0RF Print Language: Greenlandic Instructions: Arthralgia (ED) Referrals: Tierra Newell MD [Primary Care Provider] - 1 week
== END 2024-08-03 12:55 | disposition home or self-care (01) ==
PROVIDERS: Emergency Provider Emergency Medicine; PCP Family Medicine
DX: M79.642 Pain in left hand (principal); Z90.710 Acquired absence of both cervix and uterus; Z87.891 Personal history of nicotine dependence; M19.042 Primary osteoarthritis, left hand
CPT/HCPCS: 73130; 99283

== ENCOUNTER 2024-08-25 08:02 | Day surgery (SDC) | payer MEDICARE, SELFPAY ==
[2024-08-25 08:32] VITALS: BP 159/100; PULSE 104; TEMP 36.6; O2SAT 97
[2024-08-25 08:42] VITALS: BP 185/94; PULSE 94; O2SAT 96
[2024-08-25 08:43] VITALS: BP 180/90; PULSE 88; O2SAT 93
[2024-08-25] MEDS: BUPIVACAINE HCL 0.25% PF 25 MG/10 ML VIAL 2 ML INJ (08:44)
[2024-08-25] MEDS: IOHEXOL 240 MG/ML - 10 ML VIAL 24 MG INJ (08:44)
[2024-08-25] MEDS: METHYLPREDNISOLONE ACETATE 40 MG/ML VIAL INJ (08:45)
[2024-08-25] MEDS: LIDOCAINE HCL 2% 400 MG/20 ML MDV INJ (08:45)
--- NOTE | 2024-08-25 08:46 | W.PM.PROCNOT ---
Date of procedure: 08/25/24 Pre-op diagnosis: Pain due to left sacroiliitis Post-op diagnosis: same as pre-op Procedure: Procedure: Left sacroiliac joint injection Medications: Bupivacaine 0.25% 3cc, depomedrol 40mg After informed consent was obtained, the patient was brought to the medical procedure unit and placed in the prone position, when a timeout was completed verifying correct patient, procedure, site, positioning, implant, and/or special equipment.? The skin overlying the area was prepped and draped in standard sterile fashion using alcohol.? A 25-gauge needle was inserted towards the left sacroiliac joint under direct fluoroscopic imaging.? Needle tip was advanced until the joint was encountered.? We instilled a total of 2 mL of solution.? Postoperatively needles were removed.? The patient tolerated the procedure well without complication.? The patient reported reduction in pain symptoms postoperatively. Anesthesia: Local Surgeon: Drake Delatorre Pathology: none sent Condition: stable Disposition: no change
== END 2024-08-25 08:53 | disposition home or self-care (01) ==
LOC: SURGOUT 08:03
PROVIDERS: PCP Family Medicine; Visit Provider Anesthesiology
DX: M46.1 Sacroiliitis, not elsewhere classified (principal)
CPT/HCPCS: 27096; J0665; J1010; Q9966

== ENCOUNTER 2024-09-08 13:24 | Outpatient (OUT) | payer MEDICARE, SELFPAY ==
--- NOTE | 2024-09-08 13:29 | CT_ITS ---
[address] [address] Patient Name: AARON JJ MRN: [id number] date: 1945 Sex: F Assigned Patient Location: CT Current Patient Location: CT Accession/Order Number: [id number] Exam Date: 09/08/2024 16:02 Report Date: 09/08/2024 16:04 At the request of: LEANDRA GARNICA DO Procedure: CT lung screening low-dose CT CHEST WITHOUT CONTRAST, LOW DOSE SCREENING: CLINICAL DATA: A 79-year old former smoker COMPARISON: None TECHNIQUE: Noncontrast axial CT scan images of the chest were obtained under the low dose screening CT protocol. Coronal and sagittal reconstructed images were also submitted. FINDINGS: Mediastinum : Suboptimal evaluation due to low-dose technique. Thoracic aorta appears normal in caliber. Pulmonary trunk appears nondilated. No pericardial effusion. No lymphadenopathy. The esophagus is grossly unremarkable. Lungs: No focal consolidation, pneumothorax or pleural effusion. Trachea and distal airways appear patent. Emphysema. Mild lung scarring. No suspicious noncalcified pulmonary nodule or mass. Upper abdomen: No acute process. Moderate size hiatal hernia. Bony thorax and chest wall: Soft tissues surrounding the chest wall demonstrate no acute findings. Osseous structures demonstrate degenerative change. CT/CT lung screening low-dose IMPRESSION: NO SUSPICIOUS PULMONARY NODULE. LUNG - RADS Version 1.0 Assessment: Category 1, Negative (No nodules and definitely benign nodules). Management: Continue annual lung screening with LDCT in 12 months. Impression dictated by: Ray Caraballo Jr., D.O. 09/08/2024 4:04 PM Dictation Location: [place] [address] Electronically authenticated by: [id number] Y Date: 09/08/2024 16:04
== END 2024-09-08 13:25 | disposition home or self-care (01) ==
LOC: CT 13:24
PROVIDERS: PCP Family Medicine; Visit Provider Internal Medicine
DX: Z87.891 Personal history of nicotine dependence (principal); J43.9 Emphysema, unspecified; Z12.2 Encounter for screening for malignant neoplasm of respiratory organs
CPT/HCPCS: 71271

== ENCOUNTER 2024-09-08 13:26 | Outpatient (OUT) | payer MEDICARE, SELFPAY | END 2024-09-08 13:27 | disposition home or self-care (01) | LOC: RAD 13:26 | PROVIDERS: PCP Family Medicine; Visit Provider Family Medicine | DX: M81.0 Age-related osteoporosis without current pathological fracture (principal); Z87.891 Personal history of nicotine dependence; J43.9 Emphysema, unspecified; Z12.2 Encounter for screening for malignant neoplasm of respiratory organs; M85.80 Other specified disorders of bone density and structure, unspecified site | CPT/HCPCS: 71271; 77080 ==

== ENCOUNTER 2024-09-10 12:37 | Outpatient (OUT) | payer MEDICARE, SELFPAY ==
--- NOTE | 2024-09-10 12:51 | PM.CN ---
Consult Note: HPI Data of Consult Patient: known to practice within the last 3 years Requesting Physician: Sheri Lozano NP Primary Care Provider: Tierra Newell MD Consult Narrative Reason for consult: f/u Narrative: Jing Hoffmann a pleasant 79 year old female presents for evaluation and management of chronic neck, right shoulder, and low back pain. Patient reporting moderate to severe low back pain with radiculopathy, greater than 3 months unresponsive to HEP and conservative medications. Pain today 4-5/10 aching sharp increasing to 8/10 with activity, standing, walking, pushing, pulling, ADLS. Pain improved with heat, lying, and sitting. currently engaged in PT at home without benefit. utilizing tylenol, naproxen, gabapentin, nortriptyline and percocet PRN with benefit without side effects. denies falls since last visit, utilizing walker. recently underwent left SIJ injection with no relief per pt. has historically declined scs trial as recommended. pt would like to address right shoulder pain at this time. cc:: CC: Sheri Lozano NP Review of Systems ROS Status of ROS 10 or more systems reviewed and unremarkable except as noted in history and below Musculoskeletal Reports: back pain, extremity pain and joint pain PFSH PFSH Medical History (Updated 09/10/24 @ 13:11 by Sheri Lozano NP) Metabolic encephalopathy ?G93.41 - Metabolic encephalopathy (ICD-10) COPD (chronic obstructive pulmonary disease) ?J44.9 - Chronic obstructive pulmonary disease, unspecified (ICD-10) GERD (gastroesophageal reflux disease) ?K21.9 - Gastro-esophageal reflux disease without esophagitis (ICD-10) Chronic pain ?G89.29 - Other chronic pain (ICD-10) Anxiety ?F41.9 - Anxiety disorder, unspecified (ICD-10) HTN (hypertension) ?I10 - Essential (primary) hypertension (ICD-10) Chronic prescription opiate use ?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.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 - 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 of opiate analgesic (ICD-10) Shoulder arthritis ?M19.019 - Primary osteoarthritis, unspecified shoulder (ICD-10) Cervical spondylosis ?M47.812 - Spondylosis without myelopathy or radiculopathy, cervical region (ICD-10) Surgical History History of lumpectomy of left breast ?Z98.890 - Other specified postprocedural states (ICD-10) History of back surgery ?Z98.890 - Other specified postprocedural states (ICD-10) History of hysterectomy ?Z90.710 - Acquired absence of both cervix and uterus (ICD-10) Family History Mother Family history of cancer Father Family history of stroke Grandfather Family history of stroke Social History Within the past year, how often did you have a drink containing alcohol: never Score interpretation: A score less than 3 is consistent with normal alcohol consumption. Smoking status: Former smoker Non-prescribed substance use: denies use Previous occupational history: retired Highest level of school completed/degree received: high school graduate Are you now , , , , never or living with a partner: Little interest or pleasure in doing things: not at all Feeling down, depressed, or hopeless: not at all Feel stressed/tense/nervous/anxious/difficulty sleeping: not at all Do you think of yourself as: straight/heterosexual Gender Identity: female Meds Home Medications and Allergies Home Medications ?Medication ?Instructions ?Recorded ?Confirmed ?Type omeprazole 40 mg capsule,delayed 40 mg PO DAILY 10/26/22 08/25/24 History release calcium carbonate (Calcium 600) 600 mg PO DAILY 03/21/23 08/25/24 History aspirin 81 mg tablet,delayed 81 mg PO DAILY 08/30/23 08/25/24 History release buspirone 10 mg tablet 15 mg PO BID 12/28/23 08/25/24 History baclofen 10 mg tablet 10 mg PO BID PRN pain 03/01/24 08/25/24 History trospium 20 mg tablet 20 mg PO DAILY 03/01/24 08/25/24 History oxycodone-acetaminophen 5 mg-325 1 tab PO TID PRN pain #90 tabs 05/08/24 08/25/24 Rx mg tablet (Percocet) docusate sodium 100 mg capsule 100 mg PO DAILY 05/15/24 08/25/24 History (Colace) gabapentin 600 mg tablet 600 mg PO TID 05/15/24 08/25/24 History ondansetron 4 mg disintegrating 4 mg PO TID-QID PRN nausea and 05/15/24 08/25/24 History tablet vomiting nortriptyline 25 mg capsule 25 mg PO DAILY #30 caps 06/02/24 08/25/24 Rx amlodipine 5 mg tablet 5 mg PO DAILY 07/17/24 08/25/24 History famciclovir 125 mg tablet 125 mg PO BID 07/17/24 08/25/24 History glucosamine sulfate 500 mg tablet 500 mg PO DAILY 07/17/24 08/25/24 History (Glucosamine) multivitamin 1 tab PO DAILY 07/17/24 08/25/24 History vit C-vit L-svlsxn-gzcgptsm-omega 1 cap PO DAILY 07/17/24 08/25/24 History 3 100 mg-15 unit-2 mg-100 mg capsule Allergies Allergy/AdvReac Type Severity Reaction Status Date / Time No Known Drug Allergies Allergy Verified 08/25/24 08:31 Exam Constitutional Documenting provider has reviewed patient's vital signs: yes Common normals: no apparent distress, oriented x3, healthy appearing, alert and well nourished General appearance: cooperative [facility] Common normals: normocephalic, hearing grossly normal bilaterally and moist oral mucous membranes Head and scalp: normocephalic Eye Common normals: PERRL Pupil: PERRL Other: no visible rash or vesicles, mild edema to left periorbital area Neck & C-Spine Common normals: full ROM General: normal visual inspection Cervical spine: pain with cervical ROM Chest Common normals: inspection of chest normal Respiratory Common normals: normal respiratory effort, no retractions and no use of accessory muscles Back & Pelvis Lumbar spine/lower back: ROM limited and pain with ROM Sacroiliac joints: SI joints normal Other: strength 5/5 in BLE bilateral sij negative daxa(patricks), gaenslens, thigh thrust, compression test Extremity Common normals: normal to inspection Right upper extremity: shoulder joint (pain and limited ROM, tender to touch) Other: limited ROM with abduction and overhead extension, unable to perform scratch test due to pain Neuro Common normals: oriented x3 Sensorium/orientation: alert Motor exam: strength 5/5 throughout and no movement abnormalities noted Psych Common normals: mental status grossly normal, thought process normal, cooperative, affect normal, speech normal and activity/motor behavior normal Speech: normal speech Thought process: normal thought process Results Additional Findings Additional findings: If on a controlled substance or opioids, I have checked an [place]AR[place] report on this patient and there are no aberrancies noted in the prescribing history.??If on a controlled substance or opioid a drug screen was completed and reviewed within the last year, and if there has not been a drug screen completed we ordered one today to monitor higher risk, state monitored pain medication use. As part of providing excellent, safe, comprehensive care, the following was completed at our patient's visit: 1. A medication reconciliation and review to ensure accurate knowledge of current/active medications, including asking our patients to inform us about any uxfw-xzw-aoevgmw medications or herbal remedies/nutritional supplements/alternative remedies. 2. A review to specifically ensure our patients have had annual screening for screening for depression, screening for tobacco use, and screening for unhealthy alcohol use. For concerning screenings had a discussion with the patient, provided patient education, and recommended follow-up with primary care provider when appropriate. If patient noted with a risk of falling, they received education on strength, gait, and balance training to prevent future risk of falling. Portions of this note may have been carried over from the previous visit and updated as appropriate. Please note this office utilizes paper charting in addition to the electronic medical record. A list of current medications, vitals, and PMH is available there as the clinical staff outside of myself do not have access to [employer] charting during the clinic day operations. As part of providing quality comprehensive care the current medications, vitals, and PMH were reviewed in the paper chart. Assessment and Plan Assessment and Plan (1) Sacroiliitis: Assessment and Plan: improved on exam (2) Right shoulder pain: (3) Primary osteoarthritis, right shoulder: (4) Lumbar stenosis with neurogenic claudication: (5) Lumbar spondylosis: (6) Failed back syndrome: Assessment and Plan: JENNIFER 44% (7) PHN (postherpetic neuralgia): (8) Chronic prescription opiate use: Assessment and Plan: I feel these medications are improving the patient's quality of life and allow them to tolerate activities of daily living as well as participate in recreational activity.? The patient does not report intolerable side effects. The patient is NOT opioid naive and non-pharmacologic and non-opioid treatment has failed to significantly relieve the patient's pain and improve functionality. The patient has a diagnosis that is related to a somatic or visceral pain etiology. ? ?? I reviewed with the patient the potential risks and side effects with the use of? opioid medications including but not limited to respiratory depression,? sedation, and even . Within the last 12 months I have verified the patient has access to naloxone should? these effects occur. The patient was advised to let? their family know they had Naloxone in case they would need to administer? the medication. I advised the patient to avoid the use of any other? sedation substances including alcohol, THC, and benzodiazepines while? taking opioid medications due to the risk of compounding side effects and? detrimental outcomes. within the last 12 months I have reviewed the ANALYSIS ENGINEER, pain treatment agreement and urine drug screen.? ?? A drug screen was completed within the last year, and no aberrancies were noted regarding their use of controlled substances. The patient understands they are subject to the terms and conditions of the pain contract that they have signed. ? ?? I have checked an OARRS report on this patient today and there are no aberrancies noted in the prescribing history.? Plan update right shoulder xray, proceed with right shoulder injection in office with Dr Delatorre pt not interested in spinal cord stimulator trial at this time due to transportation issues and commitment continue percocet 5-325mg TID PRN moderate to severe pain continue gabapentin 600mg TID, risks vs benefits reviewed continue transdermal therapeutics cream 6a TID QID PRN for pain secondary to PHN continue PT as tolerated f/u after injection
== END 2024-09-10 12:38 ==
LOC: PM 12:38
PROVIDERS: PCP Family Medicine; Visit Provider Nurse Practitioner
DX: M46.1 Sacroiliitis, not elsewhere classified (principal); M25.511 Pain in right shoulder; M19.011 Primary osteoarthritis, right shoulder; M48.062 Spinal stenosis, lumbar region with neurogenic claudication; M47.816 Spondylosis without myelopathy or radiculopathy, lumbar region; M96.1 Postlaminectomy syndrome, not elsewhere classified; B02.29 Other postherpetic nervous system involvement; Z79.891 Long term (current) use of opiate analgesic
CPT/HCPCS: G0463

== ENCOUNTER 2024-09-25 13:07 | Outpatient (OUT) | payer MEDICARE, SELFPAY ==
--- NOTE | 2024-09-25 13:17 | XR_ITS ---
The [address] [address] Patient Name: AARON JJ MRN: [id number] date: 1945 Sex: F Assigned Patient Location: [facility] Current Patient Location: [facility] Accession/Order Number: [id number] Exam Date: 09/25/2024 14:01 Report Date: 09/25/2024 14:03 At the request of: JUAN ANTONIO QUEVEDO NP Procedure: XR shoulder EBONI min 2V XR shoulder EBONI min 2V 09/25/2024 1:32 PM SIGNS AND SYMPTOMS: ^Right Shoulder Osteoarthritis, Left Shoulder Pain PROTOCOL: Frontal, Grashey, scapular Y views of the bilateral shoulders COMPARISON: 08/10/2022 FINDINGS: Right shoulder: There are mild hypertrophic changes in the common clavicular joint similar to the prior exam. Worsening degenerative changes are noted in the glenohumeral joint. Subcortical cystic change and cortical irregularity at the greater tuberosity of the right humeral head is consistent with underlying rotator cuff pathology. Visualized right hemithorax is grossly intact. Left shoulder: Mild hypertrophic changes are noted in the acromioclavicular joint with mild narrowing of the glenohumeral joint. There is no fracture or dislocation. The visualized left hemithorax is grossly intact. XR/XR shoulder EBONI min 2V IMPRESSION: Worsening degenerative changes of the right glenohumeral joint. Findings suggest underlying rotator cuff pathology on the right. Degenerative changes are noted in the acromioclavicular joints bilaterally. No acute bony injury. Impression dictated by: Florian Gatica M.D. 09/25/2024 2:03 PM Dictation Location: Secure Software Electronically authenticated by: [id number] Y Date: 09/25/2024 14:03
== END 2024-09-25 13:08 | disposition home or self-care (01) ==
LOC: RAD 13:07
PROVIDERS: PCP Family Medicine; Visit Provider Nurse Practitioner
DX: M19.011 Primary osteoarthritis, right shoulder (principal); M25.512 Pain in left shoulder; M25.511 Pain in right shoulder; M19.012 Primary osteoarthritis, left shoulder
CPT/HCPCS: 73030

== ENCOUNTER 2024-10-13 14:12 | Outpatient (OUT) | payer MEDICARE, SELFPAY ==
--- OUTSIDE RECORDS SUMMARY | 2024-10-13 14:16 | XMS_ITS | Clinical Summary ---
Author Organization Urge tem Address [id number] [address] [place] [address] Care Team Providers Care Refrigeration Lead Name Role Phone Tierra Newell MD Primary Care Provider [phone] Allergies No known active allergies Medications omeprazole (PriLOSEC) 40 mg capsule Take 1 capsule (40 mg total) by mouth in the morning. Active calcium carbonate (OS-RAYMON) 600 mg elemental (1,500 mg) tablet Take 1 tablet (600 mg total) by mouth daily with breakfast. Active meloxicam (MOBIC) 15 mg tablet Take 1 tablet (15 mg total) by mouth in the morning. Active gabapentin (NEURONTIN) 300 mg capsule Take 1 capsule (300 mg total) by mouth 3 (three) times a day. Active baclofen (LIORESAL) 10 mg tablet Take 0.5 tablets (5 mg total) by mouth 3 (three) times a day as needed for muscle spasms. Active acetaminophen (TYLENOL) 325 mg tablet Take 2 tablets (650 mg total) by mouth every 6 (six) hours as needed for pain. Active amLODIPine (NORVASC) 2.5 mg tablet Take 2 tablets (5 mg total) by mouth in the morning. Active aspirin 81 mg Take 1 tablet (81 mg total) by mouth in the morning. Active glucosamine-edwar droitin 500-400 mg tablet Take 1 tablet by mouth in the morning and 1 tablet before bedtime. Active oxyCODONE-acetam inophen (PERCOCET) 5-325 mg per tablet Take 1 tablet by mouth 3 (three) times a day. Max Daily Amount: 3 tablets Active albuterol (PROVENTIL HFA;VENTOLIN HFA) 90 mcg/actuation inhalerIndicatio ns:exercise-leydi shilpa bronchospasm prevention Inhale 2 puffs every 4 (four) hours as needed for wheezing Indications: exercise-induced bronchospasm prevention. Active busPIRone (BUSPAR) 10 mg tablet Take 1 tablet (10 mg total) by mouth in the morning and 1 tablet (10 mg total) before bedtime. Active nortriptyline (PAMELOR) 25 mg capsule Take 1 capsule (25 mg total) by mouth nightly. Active methylPREDNISolo ne (MEDROL, DEVANTE,) 4 mg tablet Take 1 tablet (4 mg total) by mouth in the morning and 1 tablet (4 mg total) before bedtime. follow package directions On day 3 per pt son. Active tobramycin-dexAM ETHasone (TOBRADEX ST) 0.3-0.05 % drops,suspension Instill to eye. Active trospium (SANCTURA) 20 mg tablet Take 1 tablet (20 mg total) by mouth in the morning and 1 tablet (20 mg total) before bedtime. Active cholecalciferol, vitamin D3, 2,000 units capsule Take 1 capsule (2,000 Units total) by mouth in the morning. Active heparin lock flush, porcine, 10 unit/mL injection Infuse 1-5 mL (10-50 Units total) into a venous catheter as needed (line care per nursing agency protocol.). 1 mL 4 Active heparin lock flush, porcine, injection 100 unit/mL solution Infuse 1-5 mL (100-500 Units total) into a venous catheter as needed (line care per nursing agency protocol.). 1 mL 4 Active sodium chloride injection Infuse 10-20 mL into a venous catheter as needed for line care (line care per nursing agency protocol.). 1 mL 4 Active acyclovir (ZOVIRAX) 50 mg/mL injectionIndicat ions:Varicella encephalitis Infuse 17.7 mL (885 mg total) into a venous catheter every 12 (twelve) hours. End Date 03/11/2024 1 mL 4 Active Active Problems Problem Noted Date Diagnosed Date Viral meningitis 03/02/2024 Seizure 03/02/2024 Immunizations Immunization Administration Dates Next Due COVID-19 Vaccine, vector-nr, rS-Ad26, PF, 0.5mL 07/21/2020 COVID-19, mRNA, LNP-S, PF, 30mcg/0.3mL Dose 03/14 Influenza, High-dose, Quadrivalent 04/11/2020 Influenza, Im Trivalent Preservative 02/02/2011 Family History Medical History Relation Name Comments Stroke Father Cancer Mother Relation Name Status Comments Father Mother Social History Tobacco Use Types Packs/Day Years Used Date Smoking Tobacco: Former Cigarettes Smokeless Tobacco: Never Tobacco Cessation:Counseling Given: Not Answered Alcohol Use Standard Drinks/Week Comments Never 0 (1 standard drink = 0.6 oz pur e alcohol) [facility] Utilities Answer Date Recorded In the past 12 months has th e electric, gas, oil, or water company threatened to shut off services in your home? No 03/02/2024 AUDIT-C Answer Date Recorded Q1: How often do you have a drink containing alcohol? Never 03/02/2024 Q2: How many drinks containi ng alcohol do you have on a typical day when you are drinking? Patient does not drink Q3: How often do you have si x or more drinks on one occasion? Never 03/02/2024 PHQ-2 Answer Date Recorded Total Score 0 03/02/2024 PRAPARE - Transportation Answer Date Re corded In the past 12 months, has l ack of transportation kept you from medical appointments or from getting medications? No 02/12 In the past 12 months, has l ack of transportation kept you from meetings, work, or from getting things needed for daily living? No 03/02/2024 Housing Instability Answer Date Recorde d Are you worried or concerned that in the next two months you may not have stable housing that you own, rent or stay in as a part of a household? No 03/02/2024 Hunger Screening Answer Date Recorded Within the past 12 months we worried whether our food would run out before we got money to buy more. Never True 03/02/2024 Within the past 12 months th e food we bought just didn't last and we didn't have money to get more. Never True 03/02/2024 Comments No Sex and Gender Information Value Date Recorded Sex Assigned at Not on file Legal Sex Female 7:12 PM EDT Gender Identity Not on file Sexual Orientation Not on file Last Filed Vital Signs Vital Sign Reading Time Taken Comments Blood Pressure 137/58 03/07/2024 11:13 AM EDT Pulse 111 03/07/2024 11:13 AM EDT Temperature 36.5 C (97.7 F) 03/07/2024 11:13 AM EDT Respiratory Rate 17 03/07/2024 11:13 AM EDT Oxygen Saturation 91% 03/07/2024 11:13 AM EDT Inhaled Oxygen Concentration - - Weight 87 kg (191 lb 12.8 oz) 03/07/2024 5:26 AM EDT Height 165.1 cm (5' 5 ) 03/02/2024 2:11 PM EDT Body Mass Index 31.92 03/02/2024 2:11 PM EDT Plan of Treatment Health Maintenance Due Date Last Done Comments DTaP,Tdap and Td Vaccines (1 - Tdap) 1966 Zoster (Shingles) Vaccine (1 of 2) 1997 Fall Risk Screening 02/10/2012 COVID-19 Vaccine (3 - season) 2024, 07/21/2020 Influenza Vaccine 01/12/2025 04/11/2020, 02/02/2011 Depression Screening 03/02/2025 03/02/2024 Tobacco Screening 03/02/2025 03/02/2024 Goals Goal Patient Goal Type Associated Problems Recent Progress Patient-Stated? Author Return to home General Yes Zita Bergman, RN Note: Evaluation of progress towards goal: Medical Devices Not on file Insurance [employer] Advance Directives * Full Code (Latest Code Status on File) Date Activated Date Inactivated Comments 03/02/2024 2:57 AM 03/07/2024 6:52 PM Care Teams Refrigeration Lead Relationship Specialty Start Date End Date Tierra Newell MD [address] [place] [address] PCP - General Family Medicine 03/03/24
--- OUTSIDE RECORDS SUMMARY | 2024-10-13 14:16 | XMS_ITS | Clinical Summary ---
Author Organization [facility] Address [address] [place] [address] Care Team Providers Care Thermal Intelligence Analyst Name Role Phone Tierra Newell MD Primary Care Provider [phone] Allergies Active Allergy Reactions Criticality Noted Date Comments Other Rash Low 04/14/2020 Medications albuterol HFA 90 mcg/act inhaler INHALE 2 PUFFS BY MOUTH EVERY 4 HOURS NEEDED FOR SHORTNESS OF BREATH Active amLODIPine (Norvasc) 5 MG tablet TAKE 1 TABLET BY MOUTH EVERY DAY FOR 30 DAYS 4 Active busPIRone (Buspar) 10 MG tablet Take 10 mg by mouth in the morning and 10 mg before bedtime. 4 Active calcium citrate (Calcitrate) 950 (200 Ca) MG tablet Take 950 mg by mouth 4 Active gabapentin (Neurontin) 300 MG capsule Take 300 mg by mouth in the morning and 300 mg in the evening and 300 mg before bedtime. Active Glucosamine 500 MG capsule Take 500 mg by mouth 4 Active meloxicam (Mobic) 15 MG tablet 4 Active nortriptyline (Pamelor) 25 MG capsule TAKE 1 CAPSULE BY MOUTH EVERY DAY AT BEDTIME Active omeprazole (PriLOSEC) [address] capsule TAKE 1 CAPSULE BY MOUTH EVERY DAY 30 MINUTES BEFORE MORNING MEAL FOR 90 DAYS Active oxyCODONE-aceta minophen (Percocet) 5-325 MG tablet Take 1 tablet by mouth 2 (two) times a day as needed 4 Active Active Problems No known active problems Family History Relation Name Status Comments Father Mother Social History Tobacco Use Types Packs/Day Years Used Date Smoking Tobacco: Former Cigarettes Passive Smoke Exposure: Past Smokeless Tobacco: Never Tobacco Cessation:Counseling Given: Yes Alcohol Use Standard Drinks/Week Comments Defer 0 (1 standard drink = 0.6 oz pur e alcohol) Comments Unknown Sex and Gender Information Value Date Recorded Sex Assigned at Not on file Legal Sex Female 7:00 PM EDT Gender Identity Not on file Sexual Orientation Not on file Last Filed Vital Signs Vital Sign Reading Time Taken Comments Blood Pressure 125/78 01/24/2024 12:56 PM EDT Pulse 79 01/24/2024 12:56 PM EDT Temperature - - Respiratory Rate - - Oxygen Saturation - - Inhaled Oxygen Concentration - - Weight 96.6 kg (213 lb) 01/24/2024 12:56 PM EDT Height 165.1 cm (5' 5 ) 01/24/2024 12:56 PM EDT Body Mass Index 35.45 01/24/2024 12:56 PM EDT Plan of Treatment Health Maintenance Due Date Last Done Comments Pneumococcal Vaccine: 65+ Ye ars (1 of 1 - PCV) 1997 Influenza Vaccine (Season Ended) 2025 04/11/20 20, 02/02/[address] [place] [address] [place] [address] [employer] Care Teams Thermal Intelligence Analyst Relationship Specialty Start Date End Date Tierra Newell MD PCP - General Family Medicine 08/30/23
--- OUTSIDE RECORDS SUMMARY | 2024-10-13 14:16 | XMS_ITS | Clinical Summary ---
Author Organization [facility] Address [address] [place] [address] Care Team Providers Care Wrapper Off Name Role Phone Unavailable Primary Care Provider Unavailabl e Medications Medication Sig Dispensed Refills Start Date End Date Status trospium (Sanctura) 20 mg tablet Take 20 mg by mouth two times daily. 01/24/2024 Active oxyCODONE-acetaminoph en (Percocet) 5-325 mg tablet Take 1 tablet by mouth 3 times a day. 08/21/2023 Active meloxicam (Mobic) 15 mg tablet Take 15 mg by mouth in the morning. 08/28/2023 Active glucosamine HCl 500 mg tablet 500 mg. 03/12/2024 Active gabapentin (Neurontin) 300 mg capsule Take 300 mg by mouth 3 times a day. 04/13/2023 Active amLODIPine (Norvasc) 5 mg tablet Take by mouth in the morning. 02/12/2024 Active acyclovir (Zovirax) 50 mg/mL injection Infuse 885 mg into a venous catheter every 12 (twelve) hours. 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 03/21/2024 Osteoporosis 03/21/2024 Other urethral stricture, female 03/21/2024 Ovarian cancer 03/21/2024 Pain due to fracture 03/21/2024 Recurrent UTI 03/21/2024 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 03/21/2024 Encephalopathy 03/21/2024 Tobacco abuse 03/21/2024 Urinary retention 03/21/2024 Viral meningitis 03/02/2024 Immunizations Name Administration Dates Next Due Influenza, High-dose Seasona l, Quadrivalent, Preservative Free 04/11/2020 Influenza, seasonal, injectable 02/02/2011 Social History Tobacco Use Types Packs/Day Years Used Date Smoking Tobacco: Never Assessed [place] Safety & Environment Answer Date Rec orded Fear of Current or Ex-Partner Not on file Emotionally Abused Not on file 07/05/2023 Physically Abused Not on file 07/05/2023 Sexually Abused Not on file 07/05/2023 Physically or Sexually Abused Not on file Sex and Gender Information Value Date Recorded Sex Assigned at Not on file Gender Identity Not on file Sexual Orientation Not on file Plan of Treatment Health Maintenance Due Date Last Done Comments Medicare Annual Wellness (AWV) 1945 Depression Screening 1959 Adult Tetanus 1969 Zoster Vaccines (1 of 2) 1997 Fall Risk Screening 02/10/2012 Pneumococcal Vaccine: 65+ Years (1 of 1 - PCV) 02/10/2012 COVID-19 Vaccine (3 - 2023-2 5 season) 2024 03/31/2021, 07/21/2020 Influenza Vaccine (Season Ended) 2025 04/11/2020, 02/02/2011 HIB Vaccines Aged Out No longer eligi ble based on patient's age to complete this topic HPV Vaccines Aged Out No longer eligi ble based on patient's age to complete this topic IPV Vaccines Aged Out No longer eligi ble based on patient's age to complete this topic Meningococcal B Vaccine Aged Out No l onger eligible based on patient's age to complete this topic Meningococcal Vaccine Aged Out No meagan jose juan eligible based on patient's age to complete this topic Rotavirus Vaccines Aged Out No longer eligible based on patient's age to complete this topic
--- OUTSIDE RECORDS SUMMARY | 2024-10-13 14:16 | XMS_ITS | Encounter Summary ---
Author Organization [employer] Address [id number] [address] [place] [address] Care Team Providers Care Ciaio Counter Molder Name Role Phone Tierra Newell MD Primary Care Provider [phone] Encounter Details Date Type Department Care Team (Late st Contact Info) Description 03/01/2024 Orders Only [employer] External [employer] Storage [facility] [place] [address] Transcribe, Orders Support User Pain (Primary Dx) Social History Tobacco Use Types Packs/Day Years Used Date Smoking Tobacco: Never Assessed [facility] Utilities Answer Date Recorded In the past 12 months has [employer] electric, gas, oil, or water company threatened [...] to get more. Never True 03/02/2024 Comments Unknown Sex and Gender Information Value Date Recorded Sex Assigned at Not on file Legal Sex Female 7:12 PM EDT Gender Identity Not on file Sexual Orientation Not on file documented as of this encounter Functional Status * Question Answer Date of Assessment Author Functional Status Independent 03/02/2024 1:56 PM Shauna Maya RN * Audit-C Score Answer Date of Assessment Author 0 03/02/2024 2:09 PM Ria Maya RN * Intimate Partner Violence Question Answer Date of Assessment Author Within the last year, have y ou been humiliated or emotionally abused in other ways by your partner or ex-partner? No 03/02/2024 1:59 PM Shauna Maya RN Within the last year, have y ou been afraid of your partner or ex-partner? No 03/02/2024 1:59 PM Shauna Maya RN Within the last year, have y ou been raped or forced to have any kind of sexual activity by your partner or ex-partner? No 03/02/2024 1:59 PM Shauna Maya RN Within the last year, have y ou been kicked, hit, slapped, or otherwise physically hurt by your partner or ex-partner? No 03/02/2024 1:59 PM Shauna Maya RN * Question Answer Date of Assessment Author Q1: How often do you have a drink containing alcohol? Never 03/02/2024 2:09 PM Shauna Maya RN Q2: How many drinks containing alcohol do you have on a typical day when you are drinking? Patient does not drink 03/02/2024 2:09 PM Shauna Maya RN Q3: How often do you have six or more drinks on one occasion? Never 03/02/2024 2:09 PM EDT Shauna Herrera, RN documented as of this encounter Mental Status * Question Answer Entry Date Author Overall Cognitive Status WFL 03/04/2024 11:45 AM EDT Nicholas Lang PT documented in this encounter Plan of Treatment Not on file documented as of this encounter Goals Goal Patient Goal Type Associated Problems Recent Progress Patient-Stated? Author Return to home General Yes Zita Bergman, GIORGIO Note: Evaluation of progress towards goal: documented as of this encounter Results * CT brain without contrast stroke alert (03/01/2024 5:30 PM EDT) us Scanning Provider External IMG CT ORDERABLES Fin al Result documented in this encounter Visit Diagnoses Diagnosis Pain- Primary Generalized pain documented in this encounter Additional Health Concerns Infection Onset Date Last Indicated Resolved Time Meningitis Rule-Out 03/02/2024 03/04/2024 03/04/20 11:50 AM EDT Varicella zoster (chickenpox) 03/04/2024 03/04/2024 03/05/2024 7:06 AM EDT documented as of this encounter Care Teams Ciaio Counter Molder Relationship Specialty Start Date End Date Tierra Newell MD [address] [place] [phone] PCP - General Family Medicine 03/03/24 documented as of this encounter
--- OUTSIDE RECORDS SUMMARY | 2024-10-13 14:16 | XMS_ITS | Clinical Summary ---
Author Organization [facility] Address [address] [place] [address] Care Team Providers Care Abrasive Mixer Helper Name Role Phone Unavailable Primary Care Provider Unavailabl e Social History Tobacco Use Types Packs/Day Years Used Date Smoking Tobacco: Never Assessed Comments Unknown Sex and Gender Information Value Date Recorded Sex Assigned at Not on file Legal Sex Female 5:24 AM EST Gender Identity Not on file Sexual Orientation Not on file Plan of Treatment Health Maintenance Due Date Last Done Comments DEXA SCAN DISCUSSION 1945 HEPATITIS C VIRUS SCREENING 1945 TETANUS 1945 TDAP (ADULT) 1966 CERVICAL CANCER SCREENING DISCUSSION 02/10/1968 MAMMOGRAM SCREENING DISCUSSION 1987 COLORECTAL CANCER SCREENING DISCUSSION 02/10/1992 PNEUMOCOCCAL VACCINE SERIES (1 of 1 - PCV) 1997 ZOSTER (SHINGLES) VACCINE (1 of 2) 1997 RSV VACCINE (1 - 1-dose 75+ series) 2022 COVID-19 VACCINE ( - 2023-2 5 season) 2024 INFLUENZA VACCINE (Season Ended) 2025 HEP B VACCINE Aged Out No longer elig ible based on patient's age to complete this topic
--- OUTSIDE RECORDS SUMMARY | 2024-10-13 14:16 | XMS_ITS | Referral Summary ---
Author Organization [facility] Address [address] [place] [address] Care Team Providers Care Flitch Hanger Name Role Phone Unavailable Primary Care Provider [...] Orientation Not on file Plan of Treatment [place] [address]
--- NOTE | 2024-10-13 15:04 | PM.CN ---
Consult Note: HPI Data of Consult Patient: known to practice within the last 3 years Consult date: 10/13/24 Requesting Physician: Drake Delatorre MD Primary Care Provider: Tierra Newell MD Consult Narrative Reason for consult: bilateral shoulder pain Narrative: 79yof who presents for assessment. previously had been having right shoulder pain, so was scheduled for right shoulder injection today. however, after last office visit, patient endorsed increasing left shoulder pain. xr of bilateral shoulders was subsequently ordered. this xr showed rotator cuff tendinopathy and osteoarthritis in right shoulder, as well as left shoulder osteoarthritis. has continued in a series of provider directed home exercises >6 weeks, without benefit. uses pain medicine as needed. cc:: CC: Drake Delatorre MD Review of Systems ROS Status of ROS 10 or more systems reviewed and unremarkable except as noted in history and below PFSH [facility] Medical History Metabolic encephalopathy ?G93.41 - Metabolic encephalopathy (ICD-10) COPD (chronic obstructive pulmonary disease) ?J44.9 - Chronic obstructive pulmonary disease, unspecified (ICD-10) GERD (gastroesophageal reflux disease) ?K21.9 - Gastro-esophageal reflux disease without esophagitis (ICD-10) Chronic pain ?G89.29 - Other chronic pain (ICD-10) Anxiety ?F41.9 - Anxiety disorder, unspecified (ICD-10) HTN (hypertension) ?I10 - Essential (primary) hypertension (ICD-10) Chronic prescription opiate use ?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) Shoulder arthritis ?M19.019 - Primary osteoarthritis, unspecified shoulder (ICD-10) Cervical spondylosis ?M47.812 - Spondylosis without myelopathy or radiculopathy, cervical region (ICD-10) Surgical History History of lumpectomy of left breast ?Z98.890 - Other specified postprocedural states (ICD-10) History of back surgery ?Z98.890 - Other specified postprocedural states (ICD-10) History of hysterectomy ?Z90.710 - Acquired absence of both cervix and uterus (ICD-10) Family History Mother Family history of cancer Father Family history of stroke Grandfather Family history of stroke Social History Within the past year, how often did you have a drink containing alcohol: never Score interpretation: A score less than 3 is consistent with normal alcohol consumption. Smoking status: Former smoker Non-prescribed substance use: denies use Previous occupational history: retired Highest level of school completed/degree received: high school graduate Are you now , , , , never or living with a partner: Little interest or pleasure in doing things: not at all Feeling down, depressed, or hopeless: not at all Feel stressed/tense/nervous/anxious/difficulty sleeping: not at all Do you think of yourself as: straight/heterosexual Gender Identity: female Meds Home Medications and Allergies Home Medications ?Medication ?Instructions ?Recorded ?Confirmed ?Type omeprazole 40 mg capsule,delayed 40 mg PO DAILY 10/26/22 08/25/24 History release calcium carbonate (Calcium 600) 600 mg PO DAILY 03/21/23 08/25/24 History aspirin 81 mg tablet,delayed 81 mg PO DAILY 08/30/23 08/25/24 History release buspirone 10 mg tablet 15 mg PO BID 12/28/23 08/25/24 History baclofen 10 mg tablet 10 mg PO BID PRN pain 03/01/24 08/25/24 History trospium 20 mg tablet 20 mg PO DAILY 03/01/24 08/25/24 History oxycodone-acetaminophen 5 mg-325 1 tab PO TID PRN pain #90 tabs 05/08/24 08/25/24 Rx mg tablet (Percocet) docusate sodium 100 mg capsule 100 mg PO DAILY 05/15/24 08/25/24 History (Colace) gabapentin 600 mg tablet 600 mg PO TID 05/15/24 08/25/24 History ondansetron 4 mg disintegrating 4 mg PO TID-QID PRN nausea and 05/15/24 08/25/24 History tablet vomiting nortriptyline 25 mg capsule 25 mg PO DAILY #30 caps 06/02/24 08/25/24 Rx amlodipine 5 mg tablet 5 mg PO DAILY 07/17/24 08/25/24 History famciclovir 125 mg tablet 125 mg PO BID 07/17/24 08/25/24 History glucosamine sulfate 500 mg tablet 500 mg PO DAILY 07/17/24 08/25/24 History (Glucosamine) multivitamin 1 tab PO DAILY 07/17/24 08/25/24 History vit C-vit Z-rqjqhk-drcvjiwv-omega 1 cap PO DAILY 07/17/24 08/25/24 History 3 100 mg-15 unit-2 mg-100 mg capsule oxycodone-acetaminophen 5 mg-325 1 tab PO TID PRN pain #90 tabs 09/10/24 Rx mg tablet (Percocet) gabapentin 600 mg tablet 600 mg PO TID #90 tabs 09/17/24 Rx Allergies Allergy/AdvReac Type Severity Reaction Status Date / Time No Known Drug Allergies Allergy Verified 08/25/24 08:31 Exam Narrative Exam Narrative: Psych-alert and oriented x 3.? Attentive and appropriate, constitutionally normal, displays normal mood and affect per situation.? There are no obvious deficits in memory, reasoning, or intellect. Extremities-lower extremities are warm with minimal edema and palpable pulses. Shoulder - tender to palpation in bilateral shoulders. Pain elicited with abduction, external rotation of bilateral shoulders. Some grinding is noted with these motions.? There is no notable ligamental laxity or instability.? Coordination remains intact.? Gait remains antalgic. Assessment and Plan Assessment and Plan (1) Primary osteoarthritis, right shoulder: (2) Primary osteoarthritis, left shoulder: Plan 79yof who presents for assessment. failed conservative measures, as noted. imaging reviewed, as noted. given symptoms and imaging, will proceed with right shoulder injection. also discussed that given symptoms and imaging of left shoulder, if her pain were to worsen in the future, could discuss left shoulder injection. she expressed understanding. meds reviewed, no changes. follow up in 3 months or sooner, if needed. procedure: right shoulder injection medications: bupivacaine 0.25% 4cc, depomedrol 40mg I explained the details of the procedure to the patient including the risks, benefits, and alternatives.? We had an informed discussion.? The patient verbalized understanding and signed the consent form.? All questions were answered appropriately.? A time-out was performed.? After obtaining a comfortable seated position, the skin overlying the right shoulder was prepped with alcohol 3 times.? The sulcus between the head of the humerus and the acromion was identified.? The needle was inserted in a sterile manner 2 cm inferior and medial to the posterolateral corner of the acromion and was directed anteriorly toward the coracoid process. The contents of the syringe were gently injected without any resistance into the joint space after negative aspiration for blood or other bodily fluids.? The needle was removed and pressure was applied at the injection site to decrease the incidence of ecchymosis and hematoma formation.? A sterile bandage was applied.
== END 2024-10-13 14:13 | disposition home or self-care (01) ==
PROVIDERS: PCP Family Medicine; Visit Provider Anesthesiology
DX: M19.012 Primary osteoarthritis, left shoulder (principal); M19.011 Primary osteoarthritis, right shoulder
CPT/HCPCS: 20610; J0665; J1010